=== PATIENT | female | born 1965 | race Caucasian/White ===

== ENCOUNTER → 2021-12-24 10:05 | Outpatient (BNVA) | payer MEDICAID, SELFPAY | PROVIDERS: Visit Provider Podiatrist Foot & Ankle Surgery | DX: M72.2 Plantar fascial fibromatosis (principal); M76.62 Achilles tendinitis, left leg; M24.572 Contracture, left ankle | CPT/HCPCS: 20600; 73630; 99203; J1100; J3301 ==

== ENCOUNTER → 2021-12-30 08:01 | Outpatient (BNVA) | payer MEDICAID, SELFPAY | PROVIDERS: Visit Provider Podiatrist Foot & Ankle Surgery | DX: M72.2 Plantar fascial fibromatosis (principal); M76.62 Achilles tendinitis, left leg; M24.572 Contracture, left ankle | CPT/HCPCS: 99214 ==

== ENCOUNTER → 2022-01-13 09:36 | Outpatient (BNVA) | payer MEDICAID, SELFPAY | PROVIDERS: Visit Provider Podiatrist Foot & Ankle Surgery | DX: M72.2 Plantar fascial fibromatosis (principal) | CPT/HCPCS: 20550; J1100; J3301 ==

== ENCOUNTER → 2022-02-19 15:21 | Outpatient (BNVA) | payer MEDICAID, SELFPAY | PROVIDERS: Visit Provider Podiatrist Foot & Ankle Surgery | DX: M72.2 Plantar fascial fibromatosis (principal); M24.572 Contracture, left ankle | CPT/HCPCS: 99214 ==

== ENCOUNTER 2022-02-20 11:57 | Outpatient (CLI) | payer MEDICAID, SELFPAY | END 2022-02-20 11:58 | disposition home or self-care (01) | LOC: SPT 03-11 11:58 | PROVIDERS: Visit Provider Podiatrist Foot & Ankle Surgery | DX: Z46.89 Encounter for fitting and adjustment of other specified devices (principal); M79.671 Pain in right foot | CPT/HCPCS: 20550; 97760; 99213; L4397 ==

== ENCOUNTER → 2022-03-05 09:36 | Outpatient (BNVA) | payer MEDICAID, SELFPAY | PROVIDERS: Visit Provider Podiatrist Foot & Ankle Surgery | DX: M72.2 Plantar fascial fibromatosis (principal); M24.572 Contracture, left ankle | CPT/HCPCS: 73630 ==

== ENCOUNTER 2022-03-05 10:33 | Outpatient (CLI) | payer MEDICAID, SELFPAY | END 2022-03-05 10:34 | disposition home or self-care (01) | LOC: SPT 10:33 | PROVIDERS: Visit Provider Podiatrist Foot & Ankle Surgery | DX: Z46.89 Encounter for fitting and adjustment of other specified devices (principal); M79.671 Pain in right foot | CPT/HCPCS: 97760; 99213; L4361 ==

== ENCOUNTER → 2022-03-11 12:48 | Outpatient (BNVA) | payer MEDICAID, SELFPAY | PROVIDERS: Visit Provider Podiatrist Foot & Ankle Surgery | DX: M72.2 Plantar fascial fibromatosis (principal); M24.572 Contracture, left ankle | CPT/HCPCS: 99213 ==

== ENCOUNTER → 2022-03-25 08:26 | Outpatient (BNVA) | payer MEDICAID, SELFPAY | PROVIDERS: Visit Provider Podiatrist Foot & Ankle Surgery | DX: M72.2 Plantar fascial fibromatosis (principal); M24.571 Contracture, right ankle | CPT/HCPCS: 20550 ==

== ENCOUNTER → 2022-04-02 08:34 | Outpatient (BNVA) | payer MEDICAID, SELFPAY | PROVIDERS: Visit Provider Podiatrist Foot & Ankle Surgery | DX: M72.2 Plantar fascial fibromatosis (principal); M24.571 Contracture, right ankle; M84.374A Stress fracture, right foot, initial encounter for fracture | CPT/HCPCS: 99214 ==

== ENCOUNTER → 2022-04-08 10:52 | Outpatient (BNVA) | payer MEDICAID, SELFPAY | PROVIDERS: Visit Provider Podiatrist Foot & Ankle Surgery | DX: M72.2 Plantar fascial fibromatosis (principal); M24.571 Contracture, right ankle | CPT/HCPCS: 99213 ==

== ENCOUNTER → 2022-04-15 10:54 | Outpatient (BNVA) | payer MEDICAID, SELFPAY | PROVIDERS: Visit Provider Podiatrist Foot & Ankle Surgery | DX: M72.2 Plantar fascial fibromatosis (principal); M24.571 Contracture, right ankle | CPT/HCPCS: 99213 ==

== ENCOUNTER → 2022-04-21 09:25 | Outpatient (BNVA) | payer MEDICAID, SELFPAY | PROVIDERS: Visit Provider Podiatrist Foot & Ankle Surgery | DX: M72.2 Plantar fascial fibromatosis (principal); M24.571 Contracture, right ankle | CPT/HCPCS: 99213 ==

== ENCOUNTER → 2022-04-28 10:47 | Outpatient (BNVA) | payer MEDICAID, SELFPAY | PROVIDERS: Visit Provider Podiatrist Foot & Ankle Surgery | DX: M72.2 Plantar fascial fibromatosis (principal); M24.571 Contracture, right ankle | CPT/HCPCS: 99213 ==

== ENCOUNTER 2022-05-06 08:12 | Emergency (ER) | payer MEDICAID, SELFPAY ==
[2022-05-06] VITALS (28 sets, daily range): BP systolic 154–188; BP diastolic 83–105; PULSE 58–77; RESP 12–33; TEMP 36.8; O2SAT 90–96; BMI 31.2
--- NOTE | 2022-05-06 08:31 | ECG_ITS ---
[facility] Test Date: 2022-05-06 Pat Name: Le Barnhart Department: Room: Gender: Female Companion Caregiver: ALFREDO: 1965 Requested By: Adeline Flores Order Number: [id number] MD: David Escalante M.D. Measurements Intervals Coffey Rate: 68 P: -22 DE: 152 QRS: 62 QRSD: 81 T: -5 QT: 386 QTc: 412 Interpretive Statements SINUS RHYTHM NONSPECIFIC T-WAVE ABNORMALITY No previous ECG available for comparison Electronically Signed On 05-06-2022 11:44:33 COMPUTER COMPOSITOR by David Escalante M.D. [email or web address]
--- NOTE | 2022-05-06 08:33 | XRR_ITS ---
PROCEDURE INFORMATION: Exam: XR Chest Exam date and time: 05/06/2022 9:53 AM Age: 56 years old Clinical indication: Shortness of breath TECHNIQUE: Imaging protocol: Radiologic exam of the chest. Views: 2 views. COMPARISON: No relevant prior studies available. FINDINGS: Lungs: There is mild reticular fine reticular and ground-glass opacity in the lower lungs. Pleural spaces: There is no pleural effusion or pneumothorax. Heart/Mediastinum: Cardiomediastinal contours are unremarkable. Bones/joints: Bones are unremarkable. XR/XR chest 2V* [id number] IMPRESSION: Mild reticular and ground-glass opacity in the lower lungs. Possible interstitial edema or atypical infection.
--- NOTE | 2022-05-06 08:59 | W.ED.SOB ---
Documented by User: NICOLETTE Beard 05/06/22 12:40 HPI - SOB/Dyspnea General: Chief Complaint: Shortness of Breath/Dyspnea Stated Complaint: SOB Time Seen by Provider: 05/06/22 08:33 History of Present Illness: HPI Narrative: Patient is in today stating that she is short of breath. She reports that she woke up this morning wheezing and use her albuterol inhaler. She reports that she just could not get her breath. She reports that for the past month she has been having increasing distention of her abdomen and noticeable weight gain. She reports she was hospitalized at [place] 2 months ago for her vaginal cancer and that they had to put her on nighttime O2 at that time. She reports that she is completely done with chemotherapy and radiation for the vaginal cancer. She reports that she has a history of COPD and congestive heart failure both. She denies any fever, chills, nausea, vomiting. She denies chest pain. She denies abdominal pain. Associated symptoms: Deny abdominal pain, chest pain, fever(s), lightheadedness, nausea, palpitations, syncope or vomiting Review of Systems Const: Denies: fever(s), chills or body aches Eyes: Denies: change in vision or blurry vision ENMT: Reports: nasal congestion; Denies: throat pain Card: Reports: swelling of feet/ankles; Denies: chest pain, palpitations, irregular heart rhythm, lightheadedness or syncope Resp: Reports: dyspnea, non-productive cough and wheezing; Denies: productive cough GI: Reports: bloating; Denies: abdominal pain, nausea or vomiting : Denies: flank pain, difficulty voiding, dysuria, urinary frequency, urinary urgency or urinary hesitancy Musc: Denies: neck pain or back pain Neuro: Denies: headache(s), numbness in extremities or weakness in extremities PFSH ED PFSH: Family History Denies family history of Colon cancer Ovarian cancer Diabetes Heart disease Hypercholesteremia Breast cancer Hypertension Uterine cancer Thyroid disease Stroke Physical Exam Const: COMMON NORMALS: no acute distress, patient oriented x3 and alert GENERAL APPEARANCE: cooperative ORIENTATION/CONSCIOUSNESS: Yes awake, Yes oriented to person, Yes oriented to place and Yes oriented to time HENMT: THROAT: posterior oropharynx normal Eye: COMMON NORMALS: Equal, round and reactive pupils present, EOMs intact bilaterally and conjunctivae normal GENERAL EYE: appearance normal, both eyes and all related structures ALIGNMENT: Yes alignment normal CONJUNCTIVA: Yes conjunctivae normal SCLERA: sclerae normal PUPIL: Yes Equal, round and reactive pupils present Neck/C-Spine: COMMON NORMALS: full ROM Resp: EFFORT & INSPECTION: Yes symmetric chest movement and Yes tachypneic Cardio: COMMON NORMALS: regular rate, regular rhythm, S1 normal heart sound present and S2 normal heart sound present RATE: regular rate RHYTHM: regular rhythm HEART SOUNDS: S1 normal heart sound present and S2 normal heart sound present GI: COMMON NORMALS: Soft to palpation INSPECTION: Yes abdominal distension AUSCULTATION: Yes Hypoactive bowel sounds present PALPATION: Yes Soft to palpation and No Tenderness to palpation present (GI) : COMMON NORMALS: Yes no CVA tenderness BLADDER/KIDNEY EXAM: Yes no CVA tenderness Back/Pelvis: COMMON NORMALS: no CVA tenderness Neuro: COMMON NORMALS: patient oriented x3 SENSORIUM/ORIENTATION: Yes alert, Yes oriented to person, Yes oriented to place and Yes oriented to time Psych: COMMON NORMALS: cooperative Course ED course: Patient's labs are reviewed. Troponin is 13 no prior comparison. BNP is over 1600 with no prior comparison. Blood pressure is elevated. Patient is still tachypneic 22-24 respirations per minute. SPO2 is 91 to 93% on room air. 10:24 AM?I consulted with Dr. Still who reviewed labs and chest x-ray and EKG. He agrees with plan to start Lasix. He recommends 40 mg IV push x1 dose now. Await 2-hour troponin 1227?delta troponin 1.7. Patient denies having current or previous chest pain. Patient states that she is feeling much better she is not nearly as short of breath she is able to walk to the bathroom without becoming winded. She is requesting discharge to home at this time. I spoke with Dr. Still regarding this patient's case and her request for discharge home. He agrees with sending her home on Lasix 40 mg p.o. daily x3 days and potassium 20 mEq replacement twice daily x3 days follow-up with her primary care provider on Thursday. I discussed this plan with the patient and she is agreeable. We discussed red flags for worsening and advised her to return to ER as needed for any new or worsening symptoms. Vital Signs: Vital signs: Vital Signs Temperature 98.2 F 05/06/22 08:25 Pulse Rate 72 05/06/22 12:46 Respiratory Rate 18 05/06/22 12:46 Blood Pressure 165/105 05/06/22 12:46 Pulse Oximetry 95 05/06/22 12:46 Oxygen Delivery Me thod 05/06/22 10:11 MDM - SOB/Dyspnea Medical Decision Making 56-year-old female reports to the ER for increasing shortness of breath. She reports that this became significantly worse when she woke up this morning but over the past month has been slowly building. She reports that she has noticed weight gain and abdominal distention. She denies any abdominal pain. White blood cell count was normal, chemistry showed troponin of 13 baseline 2-hour troponin was 14.72 with a delta of 1.7. BNP was over 1600. Urinalysis showed leukoesterase with hematuria we will go ahead and treat patient to cover for urinary tract infection. Discussed case, at length, with Dr. Still. Start patient on Lasix 40 mg p.o. daily starting tomorrow x3 days. Take potassium 20 mEq twice daily x3 days. Follow-up with primary care provider on Thursday. Return to the ER for any new or worsening symptoms. Lab Data 05/06/22 09:13 05/06/22 09:13 Labs/Radiology: Radiology Impressions Chest X-Ray 05/06/22 08:33 IMPRESSION: Mild reticular and ground-glass opacity in the lower lungs. Possible interstitial edema or atypical infection. Laboratory Results WBC 6.1 10^3/uL (4.0-10.0) 05/06/22 09:13 RBC 4.10 10^6/uL (4.1-5.3) 05/06/22 09:13 Hgb 14.9 g/dL (11.5-15.3) 05/06/22 09:13 Hct 43.4 % (37.0-47.0) 05/06/22 09:13 MCV 105.9 fl (81-99) H 05/06/22 09:13 MCH 36.3 pg (28.0-34.0) H 05/06/22 09:13 MCHC 34.3 g/dL (30.0-36.0) 05/06/22 09:13 RDW 14.6 % (12.1-15.1) 05/06/22 09:13 Plt Count 148 10^3/cmm (130-400) 05/06/22 09:13 MPV 9.8 fL (7.4-10.4) 05/06/22 09:13 Neut % (Auto) 72.2 % 05/06/22 09:13 Lymph % (Auto) 16.2 % 05/06/22 09:13 [place] % (Auto) 9.2 % 05/06/22 09:13 Eos % (Auto) 1.0 % 05/06/22 09:13 Baso % (Auto) 0.7 % 05/06/22 09:13 Neut # (Auto) 4.42 10^3/uL (1.8-7.7) 05/06/22 09:13 Lymph # (Auto) 1.0 10^3/uL (0.8-4.8) 05/06/22 09:13 [place] # (Auto) 0.6 10^3/uL (0.2-0.9) 05/06/22 09:13 Eos # (Auto) 0.1 10^3/uL (0.0-0.8) 05/06/22 09:13 Baso # (Auto) 0.0 10^3/uL (0.0-0.1) 05/06/22 09:13 Nucleated RBC % (auto) 0 % 05/06/22 09:13 Nucleated RBCs # 0.0 /100WBC 05/06/22 09:13 Sodium 141 mmol/L (136-145) 05/06/22 09:13 Potassium 3.8 mmol/L (3.5-5.1) 05/06/22 09:13 Chloride 105 mmol/L (98-107) 05/06/22 09:13 Carbon Dioxide 25 mmol/L (22-29) 05/06/22 09:13 Anion Gap 14.8 (5-19) 05/06/22 09:13 BUN 14 mg/dL (6-20) 05/06/22 09:13 Creatinine 0.6 mg/dL (0.5-0.9) 05/06/22 09:13 GFR Calculation 103.4 mL/min (90-130) 05/06/22 09:13 Glucose 105 mg/dL (65-115) 05/06/22 09:13 Calculated Osmolality 293 mOsm/kg (285-295) 05/06/22 09:13 Calcium 9.0 mg/dL (8.5-10.5) 05/06/22 09:13 Total Bilirubin 0.4 mg/dL (0.15-1.2) 05/06/22 09:13 AST 31 U/L (0-32) 05/06/22 09:13 ALT 66 U/L (0-33) H 05/06/22 09:13 Alkaline Phosphatase 100 U/L (35-105) 05/06/22 09:13 Troponin T Baseline 13 ng/L (0-10) H 05/06/22 09:13 Troponin T 120 Minute 14.72 ng/L (0-10) H 05/06/22 11:03 Delta Troponin T 1.72 ABS# (0-10) 05/06/22 11:03 NT-Pro-B Natriuret Pep 1673 pg/mL (0-125) H 05/06/22 09:13 Total Protein 6.7 g/dL (6.6-8.7) 05/06/22 09:13 Albumin 3.9 g/dL (3.5-5.2) 05/06/22 09:13 Globulin 2.8 g/dL (1.3-4.6) 05/06/22 09:13 Lipase 14 U/L (13-60) 05/06/22 09:13 Urine Color Yellow (Yellow) 05/06/22 09:28 Urine Appearance Sl hazy (CLEAR) A 05/06/22 09:28 Urine pH 7 (5-7) 05/06/22 09:28 Ur Specific [place] 1.015 (1.005-1.030) 05/06/22 09:28 Urine Protein Trace (Negative) 05/06/22 09:28 Urine Glucose (UA) Norm (Normal) 05/06/22 09:28 Urine Ketones Negative (Negative) 05/06/22 09:28 Urine Blood 2+ (Negative) H 05/06/22 09:28 Urine Nitrate Negative (Negative) 05/06/22 09:28 Urine Bilirubin Neg (Negative) 05/06/22 09:28 Urine Urobilinogen Norm mg/dL (Negative) 05/06/22 09:28 Ur Leukocyte Esterase 2+ (Negative) H 05/06/22 09:28 Urine RBC 0-4 /hpf (0-2) H 05/06/22 09:28 Urine WBC 15-25 /hpf (0-5) H 05/06/22 09:28 Ur Squamous Epith Cells 0-4 /hpf (0-5) H 05/06/22 09:28 Amorphous Sediment 1+ /hpf 05/06/22 09:28 Urine Bacteria Trace /hpf (NONE) 05/06/22 09:28 Urine Mucus 1+ /hpf 05/06/22 09:28 Discharge Plan Discharge Patient Disposition: Home Clinical Impression: Congestive heart failure, Urinary tract infection Condition: Stable Prescriptions: New nitrofurantoin macrocrystal 100 mg capsule 100 mg PO BID 5 Days Qty: 10 0RF Rx Instructions: must administer with a meal/food Lasix 40 mg tablet 40 mg PO QAM 3 Days Qty: 3 0RF Rx Instructions: Start 05/07/2022 Klor-Con M20 20 mEq tablet,ER particles/crystals 20 meq PO BID Qty: 7 0RF Rx Instructions: Start tonight 05/06/22 No Action gabapentin 300 mg capsule 300 mg PO TID clopidogrel [Plavix] 75 mg tablet 75 mg PO DAILY carvedilol [Coreg] 3.125 mg tablet 3.125 mg PO BID Rx Instructions: must administer with a meal/food (DME) night splint See Rx Instructions .Route .MEDSUPPLY Qty: 1 0RF Rx Instructions: As directed (DME) CAM boot See Rx Instructions .Route .MEDSUPPLY Qty: 1 0RF Rx Instructions: As directed (DME) Crutches See Rx Instructions .Route .MEDSUPPLY Qty: 1 0RF Rx Instructions: As directed to H.O.M.E (DME) Crutches See Rx Instructions .Route .MEDSUPPLY Qty: 1 0RF Rx Instructions: As directed HOME ibuprofen 800 mg tablet 800 mg PO Q8H PRN (Reason: pain) Qty: 36 0RF hydrocodone-acetaminophen 7.5-325 mg tablet 1 tab PO Q4H PRN (Reason: Pain) Advair Diskus 500-50 mcg/dose blister with device 1 inh INHALATION BID lisinopril 40 mg tablet 40 mg PO BID fluoxetine 20 mg capsule 20 mg PO DAILY aripiprazole 15 mg tablet 15 mg PO BEDTIME bupropion HCl 450 mg tablet extended release 24 hr 450 mg PO DAILY Discharge Orders: Discharge ED (Routine); Ordered 05/06/22 Ordered By: Adeline Flores Discharge Diet: Low Salt Discharge Activity: Resume usual activity Patient Instructions: Congestive Heart Failure, Low-Sodium Diet (ED) Activity Restrictions/Additional Instructions: Take medications as directed. Start potassium tonight and your antibiotic tonight. Do not take Lasix until tomorrow because you have already had a dose in the ER today. Follow-up with your primary care provider on Thursday. Return to the ER as needed for any new or worsening symptoms including, but not limited to, increasing shortness of breath, increasing swelling, chest pain. Coding Level of Care Code ED Manager Professional Development for Chg Fwd Documented by User: Ernesto Still DO 05/06/22 13:00 HPI - SOB/Dyspnea General: Chief Complaint: Shortness of Breath/Dyspnea Stated Complaint: SOB Time Seen by Provider: 05/06/22 08:33 [facility] ED PFSH: Family History Denies family history of Colon cancer Ovarian cancer Diabetes Heart disease Hypercholesteremia Breast cancer Hypertension Uterine cancer Thyroid disease Stroke Course Vital Signs: Vital signs: Vital Signs Temperature 98.2 F 05/06/22 08:25 Pulse Rate 72 05/06/22 12:46 Respiratory Rate 18 05/06/22 12:46 Blood Pressure 165/105 05/06/22 12:46 Pulse Oximetry 95 05/06/22 12:46 Oxygen Delivery Me thod 05/06/22 10:11 MDM - SOB/Dyspnea Medical Decision Making 56-year-old female reports to the ER for increasing shortness of breath. She reports that this became significantly worse when she woke up this morning but over the past month has been slowly building. She reports that she has noticed weight gain and abdominal distention. She denies any abdominal pain. White blood cell count was normal, chemistry showed troponin of 13 baseline 2-hour troponin was 14.72 with a delta of 1.7. BNP was over 1600. Urinalysis showed leukoesterase with hematuria we will go ahead and treat patient to cover for urinary tract infection. Discussed case, at length, with Dr. Still. Start patient on Lasix 40 mg p.o. daily starting tomorrow x3 days. Take potassium 20 mEq twice daily x3 days. Follow-up with primary care provider on Thursday. Return to the ER for any new or worsening symptoms. Chart reviewed and patient discussed with midlevel. Agree with assessment and plan. Lab Data 05/06/22 09:13 05/06/22 09:13 Labs/Radiology: Radiology Impressions Chest X-Ray 05/06/22 08:33 IMPRESSION: Mild reticular and ground-glass opacity in the lower lungs. Possible interstitial edema or atypical infection. Laboratory Results WBC 6.1 10^3/uL (4.0-10.0) 05/06/22 09:13 RBC 4.10 10^6/uL (4.1-5.3) 05/06/22 09:13 Hgb 14.9 g/dL (11.5-15.3) 05/06/22 09:13 Hct 43.4 % (37.0-47.0) 05/06/22 09:13 MCV 105.9 fl (81-99) H 05/06/22 09:13 MCH 36.3 pg (28.0-34.0) H 05/06/22 09:13 MCHC 34.3 g/dL (30.0-36.0) 05/06/22 09:13 RDW 14.6 % (12.1-15.1) 05/06/22 09:13 Plt Count 148 10^3/cmm (130-400) 05/06/22 09:13 MPV 9.8 fL (7.4-10.4) 05/06/22 09:13 Neut % (Auto) 72.2 % 05/06/22 09:13 Lymph % (Auto) 16.2 % 05/06/22 09:13 [place] % (Auto) 9.2 % 05/06/22 09:13 Eos % (Auto) 1.0 % 05/06/22 09:13 Baso % (Auto) 0.7 % 05/06/22 09:13 Neut # (Auto) 4.42 10^3/uL (1.8-7.7) 05/06/22 09:13 Lymph # (Auto) 1.0 10^3/uL (0.8-4.8) 05/06/22 09:13 [place] # (Auto) 0.6 10^3/uL (0.2-0.9) 05/06/22 09:13 Eos # (Auto) 0.1 10^3/uL (0.0-0.8) 05/06/22 09:13 Baso # (Auto) 0.0 10^3/uL (0.0-0.1) 05/06/22 09:13 Nucleated RBC % (auto) 0 % 05/06/22 09:13 Nucleated RBCs # 0.0 /100WBC 05/06/22 09:13 Sodium 141 mmol/L (136-145) 05/06/22 09:13 Potassium 3.8 mmol/L (3.5-5.1) 05/06/22 09:13 Chloride 105 mmol/L (98-107) 05/06/22 09:13 Carbon Dioxide 25 mmol/L (22-29) 05/06/22 09:13 Anion Gap 14.8 (5-19) 05/06/22 09:13 BUN 14 mg/dL (6-20) 05/06/22 09:13 Creatinine 0.6 mg/dL (0.5-0.9) 05/06/22 09:13 GFR Calculation 103.4 mL/min (90-130) 05/06/22 09:13 Glucose 105 mg/dL (65-115) 05/06/22 09:13 Calculated Osmolality 293 mOsm/kg (285-295) 05/06/22 09:13 Calcium 9.0 mg/dL (8.5-10.5) 05/06/22 09:13 Total Bilirubin 0.4 mg/dL (0.15-1.2) 05/06/22 09:13 AST 31 U/L (0-32) 05/06/22 09:13 ALT 66 U/L (0-33) H 05/06/22 09:13 Alkaline Phosphatase 100 U/L (35-105) 05/06/22 09:13 Troponin T Baseline 13 ng/L (0-10) H 05/06/22 09:13 Troponin T 120 Minute 14.72 ng/L (0-10) H 05/06/22 11:03 Delta Troponin T 1.72 ABS# (0-10) 05/06/22 11:03 NT-Pro-B Natriuret Pep 1673 pg/mL (0-125) H 05/06/22 09:13 Total Protein 6.7 g/dL (6.6-8.7) 05/06/22 09:13 Albumin 3.9 g/dL (3.5-5.2) 05/06/22 09:13 Globulin 2.8 g/dL (1.3-4.6) 05/06/22 09:13 Lipase 14 U/L (13-60) 05/06/22 09:13 Urine Color Yellow (Yellow) 05/06/22 09:28 Urine Appearance Sl hazy (CLEAR) A 05/06/22 09:28 Urine pH 7 (5-7) 05/06/22 09:28 Ur Specific [place] 1.015 (1.005-1.030) 05/06/22 09:28 Urine Protein Trace (Negative) 05/06/22 09:28 Urine Glucose (UA) Norm (Normal) 05/06/22 09:28 Urine Ketones Negative (Negative) 05/06/22 09:28 Urine Blood 2+ (Negative) H 05/06/22 09:28 Urine Nitrate Negative (Negative) 05/06/22 09:28 Urine Bilirubin Neg (Negative) 05/06/22 09:28 Urine Urobilinogen Norm mg/dL (Negative) 05/06/22 09:28 Ur Leukocyte Esterase 2+ (Negative) H 05/06/22 09:28 Urine RBC 0-4 /hpf (0-2) H 05/06/22 09:28 Urine WBC 15-25 /hpf (0-5) H 05/06/22 09:28 Ur Squamous Epith Cells 0-4 /hpf (0-5) H 05/06/22 09:28 Amorphous Sediment 1+ /hpf 05/06/22 09:28 Urine Bacteria Trace /hpf (NONE) 05/06/22 09:28 Urine Mucus 1+ /hpf 05/06/22 09:28 Discharge Plan Discharge Patient Disposition: Home Clinical Impression: Congestive heart failure, Urinary tract infection Condition: Stable Prescriptions: New nitrofurantoin macrocrystal 100 mg capsule 100 mg PO BID 5 Days Qty: 10 0RF Rx Instructions: must administer with a meal/food Lasix 40 mg tablet 40 mg PO QAM 3 Days Qty: 3 0RF Rx Instructions: Start 05/07/2022 Klor-Con M20 20 mEq tablet,ER particles/crystals 20 meq PO BID Qty: 7 0RF Rx Instructions: Start tonight 05/06/22 No Action gabapentin 300 mg capsule 300 mg PO TID clopidogrel [Plavix] 75 mg tablet 75 mg PO DAILY carvedilol [Coreg] 3.125 mg tablet 3.125 mg PO BID Rx Instructions: must administer with a meal/food (DME) night splint See Rx Instructions .Route .MEDSUPPLY Qty: 1 0RF Rx Instructions: As directed (DME) CAM boot See Rx Instructions .Route .MEDSUPPLY Qty: 1 0RF Rx Instructions: As directed (DME) Crutches See Rx Instructions .Route .MEDSUPPLY Qty: 1 0RF Rx Instructions: As directed to H.O.M.E (DME) Crutches See Rx Instructions .Route .MEDSUPPLY Qty: 1 0RF Rx Instructions: As directed HOME ibuprofen 800 mg tablet 800 mg PO Q8H PRN (Reason: pain) Qty: 36 0RF hydrocodone-acetaminophen 7.5-325 mg tablet 1 tab PO Q4H PRN (Reason: Pain) Advair Diskus 500-50 mcg/dose blister with device 1 inh INHALATION BID lisinopril 40 mg tablet 40 mg PO BID fluoxetine 20 mg capsule 20 mg PO DAILY aripiprazole 15 mg tablet 15 mg PO BEDTIME bupropion HCl 450 mg tablet extended release 24 hr 450 mg PO DAILY Discharge Orders: Discharge ED (Routine); Ordered 05/06/22 Ordered By: Adeline Flores Discharge Diet: Low Salt Discharge Activity: Resume usual activity Patient Instructions: Congestive Heart Failure, Low-Sodium Diet (ED) Activity Restrictions/Additional Instructions: Take medications as directed. Start potassium tonight and your antibiotic tonight. Do not take Lasix until tomorrow because you have already had a dose in the ER today. Follow-up with your primary care provider on Thursday. Return to the ER as needed for any new or worsening symptoms including, but not limited to, increasing shortness of breath, increasing swelling, chest pain. Coding Level of Care Code ED Manager Professional Development for Ann Machuca
[2022-05-06 09:23] LABS: Basophils % 0.7 %; Eosinophils # 0.1 10^3/uL (0.0-0.8); Hematocrit 43.4 % (37.0-47.0); Hemoglobin 14.9 g/dL (11.5-15.3); Lymphocytes % 16.2 %; Mean Corpuscular HGB Conc 34.3 g/dL (30.0-36.0); Mean Corpuscular Hemoglobin 36.3 pg (28.0-34.0); Mean Corpuscular Volume 105.9 fl (81-99); Mean Platelet Volume 9.8 fL (7.4-10.4); Monocytes # 0.6 10^3/uL (0.2-0.9); Monocytes % 9.2 %; Neutrophils # 4.42 10^3/uL (1.8-7.7); Neutrophils % 72.2 %; Nucleated Red Blood Cells % 0 %; Platelet Count 148 10^3/cmm (130-400); Red Cell Distribution Width 14.6 % (12.1-15.1); White Blood Count 6.1 10^3/uL (4.0-10.0)
[2022-05-06 09:47] LABS: Troponin(5th) Baseline 13 ng/L (0-10)
[2022-05-06 09:54] LABS: Alanine Aminotransferase 66 U/L (0-33); Albumin Level 3.9 g/dL (3.5-5.2); Alkaline Phosphatase 100 U/L (35-105); Anion Gap 14.8 (5-19); Aspartate Amino Transferase 31 U/L (0-32); Blood Urea Nitrogen 14 mg/dL (6-20); Carbon Dioxide 25 mmol/L (22-29); Chloride 105 mmol/L (98-107); Globulin 2.8 g/dL (1.3-4.6); Glomerular Filtration Rate 103.4 mL/min (90-130); Glucose 105 mg/dL (65-115); Lipase 14 U/L (13-60); NT Pro B Type Natriuretic Pept 1673 pg/mL (0-125); Osmolality Calculated 293 mOsm/kg (285-295); Potassium 3.8 mmol/L (3.5-5.1); Sodium 141 mmol/L (136-145); Total Bilirubin 0.4 mg/dL (0.15-1.2); Total Protein 6.7 g/dL (6.6-8.7)
[2022-05-06] MEDS: albuterol 2.5 mg/3 mL Neb INHALATION (10:11)
[2022-05-06 10:23] LABS: Add Urine Microscopic? YES; Bilirubin Urine Neg (Negative); Blood Urine 2+ (Negative); Glucose Urine UA Norm (Normal); Ketones Urine Negative (Negative); Leukocyte Esterase Urine 2+ (Negative); Nitrate Urine Negative (Negative); Protein Urine Trace (Negative); Specific Gravity, Urine 1.015 (1.005-1.030); Urine Appearance SL Hazy (CLEAR); Urine Color Yellow (Yellow); Urobilinogen Urine Norm (Negative); pH Urine 7 (5-7)
[2022-05-06 10:24] LABS: RBC Urine 0-4 /hpf (0-2); Squamous Epithelial Cell Urine 0-4 /hpf (0-5); WBC Urine 15-25 /hpf (0-5)
[2022-05-06] MEDS: FUROsemide 10 mg/mL SDV 4mL 40 MG IVP (10:24)
[2022-05-06 10:25] LABS: Add Urine Culture? Yes; Amorphous Sediment Urine 1+ /hpf; Bacteria Urine TRACE /hpf; Mucus Urine 1+ /hpf
--- NOTE | 2022-05-06 10:35 | ECG_ITS ---
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 Measurements Intervals [place] Rate: 66 P: -18 HI: 152 QRS: 70 QRSD: 79 T: 16 QT: 386 QTc: 407 Interpretive Statements SINUS RHYTHM NONSPECIFIC T-WAVE ABNORMALITY Compared to ECG 05/06/2022 08:34:55 No significant changes Electronically Signed On 05-06-2022 11:45:31 CURB BUILDER by David Escalante M.D. [email or web address] Servicesinging river gulfportSavareeregency hospital clevel[facility] westSpin Ink LTD/store/[id number]
[2022-05-06 11:33] LABS: Troponin 5 2HR 14.72 ng/L (0-10); Troponin 5 2HR Delta 1.72 ABS# (0-10)
== END 2022-05-06 12:48 | disposition home or self-care (01) ==
PROVIDERS: Emergency Provider Nurse Practitioner Family
DX: I11.0 Hypertensive heart disease with heart failure (principal); I50.9 Heart failure, unspecified; N39.0 Urinary tract infection, site not specified; Z79.02 Long term (current) use of antithrombotics/antiplatelets
CPT/HCPCS: 71046; 80053; 81001; 83690; 83880; 84484; 85025; 87077; 87086; 87186; 93005; 94640; 96374; 99285; J1940; J7613

== ENCOUNTER → 2022-05-23 08:27 | Outpatient (BNVA) | payer MEDICAID, SELFPAY | PROVIDERS: Visit Provider Podiatrist Foot & Ankle Surgery | DX: M72.2 Plantar fascial fibromatosis (principal); M24.571 Contracture, right ankle; S93.601A Unspecified sprain of right foot, initial encounter; X58.XXXA Exposure to other specified factors, initial encounter | CPT/HCPCS: 99213 ==

== ENCOUNTER → 2022-06-06 08:15 | Outpatient (BNVA) | payer MEDICAID, SELFPAY | PROVIDERS: Visit Provider Podiatrist Foot & Ankle Surgery | DX: M72.2 Plantar fascial fibromatosis (principal); S93.601A Unspecified sprain of right foot, initial encounter; X58.XXXA Exposure to other specified factors, initial encounter | CPT/HCPCS: 99213 ==

== ENCOUNTER 2022-06-09 19:07 | Inpatient (IN) | payer MEDICAID, SELFPAY ==
[2022-06-09] VITALS (21 sets, daily range): BP systolic 128–179; BP diastolic 77–101; PULSE 85–104; RESP 19–31; TEMP 36.6; O2SAT 89–97; BMI 32.9
--- NOTE | 2022-06-09 19:09 | XRR_ITS ---
PROCEDURE INFORMATION: Exam: XR Chest Exam date and time: 06/09/2022 7:16 PM Age: 56 years old Clinical indication: Pain; Chest pressure; Additional info: Cp TECHNIQUE: Imaging protocol: Radiologic exam of the chest. Views: 1 view. COMPARISON: CR XR chest 2V* [id number] 05/06/2022 9:53 AM FINDINGS: Lungs: Unremarkable. No consolidation. Pleural spaces: Unremarkable. No pleural effusion. No pneumothorax. Heart/Mediastinum: Unremarkable. No cardiomegaly. Bones/joints: Stable postoperative metallic fixation of the cervical spine with or without metallic artifact. XR/XR chest 1V portable [id number] IMPRESSION: No acute findings.
--- NOTE | 2022-06-09 19:29 | ECG_ITS ---
[facility] Test Date: 2022-06-09 Pat Name: Le Barnhart Department: Room: ICU01 Gender: Female Rn Complex Care: : 1965 Requested By: Jonathan Rice Order Number: [id number] Jessica MD: Ivis Drake M.D. Measurements Intervals [place] Rate: 103 P: 24 ND: 160 QRS: 61 QRSD: 88 T: -47 QT: 326 QTc: 428 Interpretive Statements SINUS TACHYCARDIA WITH FREQUENT SUPRAVENTRICULAR PREMATURE COMPLEXES ST DEVIATION AND MODERATE T-WAVE ABNORMALITY, CONSIDER LATERAL ISCHEMIA [-0.1+ mV T-WAVE IN I/aVL/V5/V6] ST DEVIATION AND MODERATE T-WAVE ABNORMALITY, CONSIDER INFERIOR ISCHEMIA [-0.1+ mV T-WAVE IN II/aVF] INTERPRETATION BASED ON A DEFAULT AGE OF 40 YEARS Compared to ECG 05/06/2022 10:35:22 Possible ischemia now present Sinus rhythm no longer present T-wave abnormality still present Electronically Signed On 06-10-2022 23:06:54 CDT by Ivis Drake M.D. [id number]
--- NOTE | 2022-06-09 19:48 | W.ED.CHESTPA ---
HPI - Chest Pain General: Chief Complaint: Chest Pain Stated Complaint: Chest Pains Time Seen by Provider: 06/09/22 19:34 Source: patient Mode of arrival: ambulatory Limitations: no limitations History of Present Illness: 56-year-old female has a history of coronary disease she does have a history of high blood pressure as well. States that today her blood pressure spiking to the 200s and started having chest pain with her hypertension. States it was a pressure pain in her chest rating to her left arm she denies any diaphoresis she did take nitro and aspirin at home with no relief her pain is currently a 5 out of 10. No vomiting no shortness of breath. Associated symptoms: Deny abdominal pain, dyspnea, fever(s), nausea or vomiting Review of Systems Const: Denies: fever(s), chills, body aches or change in appetite Eyes: Denies: blurry vision or eye discomfort ENMT: Denies: throat pain or dental pain Card: Reports: chest pain Resp: Denies: dyspnea GI: Denies: abdominal pain, nausea, vomiting or diarrhea : Denies: dysuria Musc: Denies: neck pain or back pain Skin/Breast: Denies: rash Neuro: Denies: headache(s) Psych: Denies: depression Alfonso/Lymph: Denies: easy bruising All/Imm: Denies: urticaria PFSH ED PFSH: Medical History (Updated 06/09/22 @ 22:15 by Jonathan Rice MD) Hypertension Family History Denies family history of Colon cancer Ovarian cancer Diabetes Heart disease Hypercholesteremia Breast cancer Hypertension Uterine cancer Thyroid disease Stroke Physical Exam Const: COMMON NORMALS: no acute distress, patient oriented x3 and healthy appearing HENMT: COMMON NORMALS: normocephalic and atraumatic HEAD & SCALP: normocephalic and atraumatic Eye: COMMON NORMALS: Equal, round and reactive pupils present and EOMs intact bilaterally PUPIL: Yes Equal, round and reactive pupils present Neck/C-Spine: COMMON NORMALS: full ROM and supple Chest: COMMONS NORMALS: normal inspection of the chest and normal palpation of entire chest wall Resp: COMMON NORMALS: normal respiratory effort, No retractions, No use of accessory muscles and clear to auscultation bilaterally AUSCULTATION: clear to auscultation bilaterally Cardio: COMMON NORMALS: regular rate, regular rhythm and No murmurs present (Cardio) RATE: regular rate RHYTHM: regular rhythm GI: COMMON NORMALS: Normal to inspection, nondistended, normoactive bowel sounds present, Soft to palpation, non-tender and no masses PALPATION: Yes Soft to palpation Extremity: COMMON NORMALS: normal to inspection and full ROM Neuro: COMMON NORMALS: patient oriented x3, moves all extremities and no focal motor deficits Psych: COMMON NORMALS: mental status grossly normal, Normal thought process present and cooperative THOUGHT PROCESS: Normal thought process present Skin: COMMON NORMALS: no rashes or lesions noted and no wounds GENERAL SKIN EXAM: no rashes or lesions noted Course Vital Signs: Vital signs: Vital Signs Pulse Rate 94 06/09/22 22:00 Respiratory Rate 21 H 06/09/22 22:00 Blood Pressure 144/87 06/09/22 22:00 Pulse Oximetry 94 06/09/22 22:00 Oxygen Delivery Me thod 06/09/22 19:25 MDM - Chest Pain Medical Decision Making Patient presents here with chest pain since resolved here her second EKG does have worsening ST depression from her previous EKGs her troponins here are normal with her EKG changes and risk factors will admit at this time for ACS rule out. Lab Data 06/09/22 19:45 06/09/22 19:45 Radiology Impressions Chest X-Ray 06/09/22 19:09 IMPRESSION: No acute findings. Laboratory Results WBC 7.3 10^3/uL (4.0-10.0) 06/09/22 19:45 RBC 4.42 10^6/uL (4.1-5.3) 06/09/22 19:45 Hgb 15.0 g/dL (11.5-15.3) 06/09/22 19:45 Hct 44.8 % (37.0-47.0) 06/09/22 19:45 MCV 101.4 fl (81-99) H 06/09/22 19:45 MCH 33.9 pg (28.0-34.0) 06/09/22 19:45 MCHC 33.5 g/dL (30.0-36.0) 06/09/22 19:45 RDW 13.3 % (12.1-15.1) 06/09/22 19:45 Plt Count 157 10^3/cmm (130-400) 06/09/22 19:45 MPV 9.1 fL (7.4-10.4) 06/09/22 19:45 Neut % (Auto) 69.8 % 06/09/22 19:45 Lymph % (Auto) 21.4 % 06/09/22 19:45 [place] % (Auto) 6.2 % 06/09/22 19:45 Eos % (Auto) 1.2 % 06/09/22 19:45 Baso % (Auto) 0.6 % 06/09/22 19:45 Neut # (Auto) 5.06 10^3/uL (1.8-7.7) 06/09/22 19:45 Lymph # (Auto) 1.6 10^3/uL (0.8-4.8) 06/09/22 19:45 [place] # (Auto) 0.5 10^3/uL (0.2-0.9) 06/09/22 19:45 Eos # (Auto) 0.1 10^3/uL (0.0-0.8) 06/09/22 19:45 Baso # (Auto) 0.0 10^3/uL (0.0-0.1) 06/09/22 19:45 Nucleated RBC % (auto) 0 % 06/09/22 19:45 Nucleated RBCs # 0.0 /100WBC 06/09/22 19:45 Sodium 138 mmol/L (136-145) 06/09/22 19:45 Potassium 3.4 mmol/L (3.5-5.1) L 06/09/22 19:45 Chloride 101 mmol/L (98-107) 06/09/22 19:45 Carbon Dioxide 24 mmol/L (22-29) 06/09/22 19:45 Anion Gap 16.4 (5-19) 06/09/22 19:45 BUN 23 mg/dL (6-20) H 06/09/22 19:45 Creatinine 1.0 mg/dL (0.5-0.9) H 06/09/22 19:45 GFR Calculation 57.4 mL/min (90-130) L 06/09/22 19:45 Glucose 160 mg/dL (65-115) H 06/09/22 19:45 Calculated Osmolality 293 mOsm/kg (285-295) 06/09/22 19:45 Calcium 8.9 mg/dL (8.5-10.5) 06/09/22 19:45 Total Bilirubin 0.2 mg/dL (0.15-1.2) 06/09/22 19:45 AST 19 U/L (0-32) 06/09/22 19:45 ALT 27 U/L (0-33) 06/09/22 19:45 Alkaline Phosphatase 106 U/L (35-105) H 06/09/22 19:45 Troponin T Baseline 16 ng/L (0-10) H 06/09/22 19:45 Troponin T 120 Minute 16.57 ng/L (0-10) H 06/09/22 21:35 Delta Troponin T 0.57 ABS# (0-10) 06/09/22 21:35 Total Protein 6.9 g/dL (6.6-8.7) 06/09/22 19:45 Albumin 3.9 g/dL (3.5-5.2) 06/09/22 19:45 Globulin 3.0 g/dL (1.3-4.6) 06/09/22 19:45 EKG Data EKG 1: I personally reviewed and interpreted this EKG as follows: EKG interpretation date: 06/09/22 EKG interpretation time: 19:29 Interpretation: sinus tach hr [address] elevation qrs 88 qtc 386 Discharge Plan Discharge Patient Disposition: Admitted As Inpatient Clinical Impression: Chest pain Condition: Stable Prescriptions: No Action gabapentin 300 mg capsule 300 mg PO TID clopidogrel [Plavix] 75 mg tablet 75 mg PO DAILY carvedilol [Coreg] 3.125 mg tablet 3.125 mg PO BID Rx Instructions: must administer with a meal/food lisinopril 20 mg tablet 20 mg PO BID clopidogrel [Plavix] 75 mg tablet 75 mg PO DAILY carvedilol 25 mg tablet 25 mg PO BID Rx Instructions: must administer with a meal/food baclofen 20 mg tablet 20 mg PO BID (DME) night splint See Rx Instructions .Route .MEDSUPPLY Qty: 1 0RF Rx Instructions: As directed (DME) CAM boot See Rx Instructions .Route .MEDSUPPLY Qty: 1 0RF Rx Instructions: As directed (DME) Crutches See Rx Instructions .Route .MEDSUPPLY Qty: 1 0RF Rx Instructions: As directed to [facility].O.M.E (DME) Crutches See Rx Instructions .Route .MEDSUPPLY Qty: 1 0RF Rx Instructions: As directed HOME ibuprofen 800 mg tablet 800 mg PO Q8H PRN (Reason: pain) Qty: 36 0RF ibuprofen 800 mg tablet 800 mg PO Q8H 5 Days Qty: 15 0RF hydrocodone-acetaminophen 7.5-325 mg tablet 1 tab PO Q4H PRN (Reason: Pain) Advair Diskus 500-50 mcg/dose blister with device 1 inh INHALATION BID lisinopril 40 mg tablet 40 mg PO BID fluoxetine 20 mg capsule 20 mg PO DAILY aripiprazole 15 mg tablet 15 mg PO BEDTIME bupropion HCl 450 mg tablet extended release 24 hr 450 mg PO DAILY Klor-Con M20 20 mEq tablet,ER particles/crystals 20 meq PO BID Qty: 7 0RF Rx Instructions: Start tonight 05/06/22 Referrals: Ryann Burk [Primary Care Provider] - Coding Level of Care Code ED Loan Assistant for Ann Machuca
[2022-06-09] MEDS: ondansetron 2 mg/ML SDV 2 mL 4 MG IVP (19:54)
[2022-06-09] MEDS: morphine 4 mg/mL SDV 1 mL IVP ×3 (19:54→23:51)
[2022-06-09 19:56] LABS: Basophils % 0.6 %; Eosinophils # 0.1 10^3/uL (0.0-0.8); Eosinophils % 1.2 %; Hematocrit 44.8 % (37.0-47.0); Lymphocytes # 1.6 10^3/uL (0.8-4.8); Lymphocytes % 21.4 %; Mean Corpuscular HGB Conc 33.5 g/dL (30.0-36.0); Mean Corpuscular Hemoglobin 33.9 pg (28.0-34.0); Mean Corpuscular Volume 101.4 fl (81-99); Mean Platelet Volume 9.1 fL (7.4-10.4); Monocytes # 0.5 10^3/uL (0.2-0.9); Monocytes % 6.2 %; Neutrophils # 5.06 10^3/uL (1.8-7.7); Neutrophils % 69.8 %; Nucleated Red Blood Cells % 0 %; Platelet Count 157 10^3/cmm (130-400); Red Blood Count 4.42 10^6/uL (4.1-5.3); Red Cell Distribution Width 13.3 % (12.1-15.1); White Blood Count 7.3 10^3/uL (4.0-10.0)
[2022-06-09 20:21] LABS: Troponin(5th) Baseline 16 ng/L (0-10)
[2022-06-09 20:26] LABS: Alanine Aminotransferase 27 U/L (0-33); Albumin Level 3.9 g/dL (3.5-5.2); Alkaline Phosphatase 106 U/L (35-105); Blood Urea Nitrogen 23 mg/dL (6-20); Calcium 8.9 mg/dL (8.5-10.5); Carbon Dioxide 24 mmol/L (22-29); Chloride 101 mmol/L (98-107); Glomerular Filtration Rate 57.4 mL/min (90-130); Glucose 160 mg/dL (65-115); Osmolality Calculated 293 mOsm/kg (285-295); Sodium 138 mmol/L (136-145); Total Bilirubin 0.2 mg/dL (0.15-1.2); Total Protein 6.9 g/dL (6.6-8.7)
[2022-06-09 20:29] LABS: Anion Gap 16.4 (5-19); Aspartate Amino Transferase 19 U/L (0-32); Potassium 3.4 mmol/L (3.5-5.1)
--- NOTE | 2022-06-09 21:29 | ECG_ITS ---
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 Measurements Intervals [place] Rate: 89 P: 44 NC: 170 QRS: 65 QRSD: 85 T: -3 QT: 353 QTc: 430 Interpretive Statements SINUS RHYTHM WITH OCCASIONAL SUPRAVENTRICULAR PREMATURE COMPLEXES LEFT VENTRICULAR HYPERTROPHY AND ST-T CHANGE [VOLTAGE CRITERIA PLUS ST/T ABNORMALITY] Compared to ECG 05/06/2022 10:35:22 Left ventricular hypertrophy now present ST (T wave) deviation now present T-wave abnormality no longer present Electronically Signed On 06-10-2022 23:14:31 CDT by Ivis Drake M.D. [email or web address].[email or web address]/store/[id number]
[2022-06-09 22:04] LABS: Troponin 5 2HR 16.57 ng/L (0-10)
[2022-06-09 22:05] LABS: Troponin 5 2HR Delta 0.57 ABS# (0-10)
--- NOTE | 2022-06-09 22:51 | CTR_ITS ---
PROCEDURE INFORMATION: Exam: CTA Chest With Contrast Exam date and time: 06/09/2022 11:06 PM Age: 56 years old Clinical indication: Radiating; Prior surgery; Surgery type: Coronary stents x 6; Patient HX: C/O chest pain with posterior radiation. History of chf. ; Additional info: Cp radiating to back, assess for any dissection TECHNIQUE: Imaging protocol: Computed tomographic angiography of the chest with contrast. 3D rendering (Not supervised by radiologist): MIP and/or 3D reconstructed images were created by the technologist. Radiation optimization: All CT scans at this facility use at least one of these dose optimization techniques: automated exposure control; mA and/or kV adjustment per patient size (includes targeted exams where dose is matched to clinical indication); or iterative reconstruction. Contrast material: OMNI 350; Contrast volume: 100 ml; Contrast route: INTRAVENOUS (IV); REPORTING DATA: Count of CT and Cardiac NM exams in prior 12 months: This patient has received 0 known CTs and 0 known cardiac nuclear medicine studies in the 12 months prior to the current study. COMPARISON: CR (CHEST, ) 06/09/2022 7:16 PM RADIATION DOSE METRICS: Total DLP (mGy-cm): 881.71 FINDINGS: Pulmonary arteries: No pulmonary embolus or aortic dissection. Aorta: See Pulmonary arteries finding. Lungs: Mild nonspecific ground-glass opacities in the dependent portions of the upper lobes and lower lobes suggesting possible hydrostatic edema. Pleural spaces: Unremarkable. No pneumothorax. No pleural effusion. Heart: Unremarkable. No cardiomegaly. No pericardial effusion. Coronary arteries: Severe calcified coronary artery disease. Lymph nodes: Unremarkable. No enlarged lymph nodes. Bones/joints: Unremarkable. No acute fracture. Soft tissues: Absent right breast consistent with previous right mastectomy. CT/CT angio chest [id number] IMPRESSION: 1. Severe calcified coronary artery disease. 2. Mild nonspecific ground-glass opacities in the dependent portions of the upper lobes and lower lobes suggesting possible hydrostatic edema. 3. No pulmonary embolus or aortic dissection.
[2022-06-09 22:52] LABS: D Dimer 0.44 ug/mIFEU (0-0.59)
--- NOTE | 2022-06-09 22:55 | P.HP_ITS ---
Providers/Chief Complaint Admitting Physician: Domenico Jung Primary Care Provider: Ryann Burk Chief Complaint: Chest Pains History of Present Illness 56-year-old lady with history of HTN, CAD, stenting x5, history of nocturnal hypoxia, normally on 2 L of oxygen at night, history of hemochromatosis and liver cirrhosis, will be establishing with hematology here in town, long-term NSAID use, smoking addiction, other medical problems came in for evaluation to ER due to blood pressure being elevated and having chest pain. Due to states I know that I have another blockage . She feels that it is driving up her blood pressure. Chest pain radiating to the back into the right arm. Partial relief, currently reports 09/29. Denies any worsening with deep breaths, has no cough, not short of breath, no change in pain with repositioning, no swallowing difficulties or pain, no heartburn. In ER on presentation hypertensive, systolic blood pressures in 200s. Received morphine, Zofran with partial improvement in blood pressure to 150s-160s. Initial and 2-hour troponin with minimal elevation of 16-16.57. Initial EKG with ST depression in 1, aVL, II, TWI in III, aVF. Review of Systems Const: Denies: fever(s), chills, body aches or malaise Eyes: Denies: change in vision, eye discomfort or eye redness ENMT: Denies: throat pain, oral sores or ear or mastoid pain Card: Reports: chest pain and swelling of feet/ankles; Denies: pre-syncope Resp: Reports: productive cough (Usual with her COPD. Uses an inhaler.); Denies: dyspnea, change in phlegm color or hemoptysis GI: Reports: other (Abdominal distention); Denies: abdominal pain, nausea, vomiting, diarrhea, constipation, hematochezia or melena : Denies: flank pain, urinary frequency or hematuria Musc: Denies: back pain, joint swelling or joint redness Skin/Breast: Denies: rash or new lesions Neuro: Denies: headache(s), numbness in extremities, weakness in extremities, dizziness, confusion or seizure-like activity Endo: Denies: polyuria or polydipsia Alfonso/Lymph: Denies: easy bleeding or tender lymph nodes All/Imm: Denies: urticaria or tongue swelling Medications/Allergies Home Medications Medication Instructions Recorded Confirmed Last Taken Type baclofen 20 mg tablet 20 mg PO BID 11/30/21 06/06/22 Unknown History carvedilol 25 mg tablet 25 mg PO BID 11/30/21 06/06/22 Unknown History clopidogrel 75 mg tablet (Plavix) 75 mg PO DAILY 11/30/21 06/06/22 Unknown History lisinopril 20 mg tablet 20 mg PO BID 11/30/21 06/06/22 Unknown History carvedilol 3.125 mg tablet (Coreg) 3.125 mg PO BID 12/24/21 06/06/22 05/05/22 History clopidogrel 75 mg tablet (Plavix) 75 mg PO DAILY 12/24/21 06/06/22 05/05/22 History gabapentin 300 mg capsule 300 mg PO TID 12/24/21 06/06/22 05/05/22 History night splint #1 ea 03/03/22 06/06/22 Unknown Rx CAM boot #1 ea 03/05/22 06/06/22 Unknown Rx Crutches #1 ea 03/05/22 06/06/22 Unknown Rx Crutches #1 ea 04/02/22 06/06/22 Unknown Rx ibuprofen 800 mg tablet 800 mg PO Q8H PRN pain #36 tabs 04/21/22 06/06/22 Unknown Rx aripiprazole 15 mg tablet 15 mg PO BEDTIME 05/06/22 06/06/22 05/05/22 History bupropion HCl 450 mg 24 hr tablet, 450 mg PO DAILY 05/06/22 06/06/22 05/05/22 History extended release fluoxetine 20 mg capsule 20 mg PO DAILY 05/06/22 06/06/22 05/05/22 History fluticasone 500 mcg-salmeterol 50 1 inh inhalation BID 05/06/22 06/06/22 05/05/22 History mcg/dose blistr powdr for inhalation (Advair Diskus) hydrocodone 7.5 mg-acetaminophen 1 tab PO Q4H PRN Pain 05/06/22 06/06/22 Unknown History 325 mg tablet lisinopril 40 mg tablet 40 mg PO BID 05/06/22 06/06/22 05/05/22 History potassium chloride 20 mEq 20 meq PO BID #7 tabs 05/06/22 06/06/22 Unknown Rx tablet,extended release(part/cryst) (Klor-Con M) ibuprofen 800 mg tablet 800 mg PO Q8H 5 days #15 tabs 06/06/22 06/06/22 Unknown Rx Allergies Allergy/AdvReac Type Severity Reaction Status Date / Time ketorolac [From Toradol] Allergy ALGY-Hives Verified 06/09/22 20:40 compazine Allergy Unknown Unknown Uncoded 06/09/22 22:56 toradol Allergy ALGY-Hives Uncoded 06/09/22 20:41 PFSH Acute PFSH: Medical History CAD (coronary artery disease) Cirrhosis COPD (chronic obstructive pulmonary disease) Hemochromatosis Hypertension Nocturnal hypoxia NSAID long-term use Smoking addiction Status post chemoradiation Vaginal tumors Surgical History H/O vaginal surgery Family History Denies family history of Colon cancer Ovarian cancer Diabetes Heart disease Hypercholesteremia Breast cancer Hypertension Uterine cancer Thyroid disease Stroke Social History Smoking and tobacco status: current every day smoker cigarettes [ Other cigarette details: cut down to 0.5 ppd] Alcohol intake: never Substance/Drug Use: never Lives independently: Yes Household members: significant other Marital status: Single Vitals/I&O/Wt Last Vital Signs Pulse 94 06/09/22 22:00 Resp 21 H 06/09/22 22:00 BP 144/87 06/09/22 22:00 Pulse Ox 94 06/09/22 22:00 O2 Del Method 06/09/22 19:25 Weight last 48 hrs Weight 87.09 kg Physical Exam Narrative: Boyfriend walking out. Const: COMMON NORMALS: patient oriented x3 and alert GENERAL APPEARANCE: cooperative NUTRITIONAL APPEARANCE: obese ORIENTATION/CONSCIOUSNESS: Yes awake HENMT: COMMON NORMALS: oropharynx normal Neck/C-Spine: COMMON NORMALS: no JVD Resp: COMMON NORMALS: normal respiratory effort AUSCULTATION: rhonchi right upper Cardio: COMMON NORMALS: no JVD, regular rhythm, S1 normal heart sound present, S2 normal heart sound present and No murmurs present (Cardio) RHYTHM: regular rhythm HEART SOUNDS: S1 normal heart sound present and S2 normal heart sound present GI: COMMON NORMALS: Normal to inspection, nondistended, normoactive bowel sounds present, Soft to palpation and non-tender INSPECTION: Yes abdominal distension PALPATION: Yes Soft to palpation Extremity: COMMON NORMALS: no joint enlargement GENERAL: Yes edema (1+) Neuro: COMMON NORMALS: patient oriented x3 and moves all extremities SENSORIUM/ORIENTATION: Yes alert Skin: COMMON NORMALS: no rashes or lesions noted GENERAL SKIN EXAM: no rashes or lesions noted Data 06/09/22 19:45 06/09/22 19:45 A&P Assessment and plan (1) Chest pain: Chest pain across the chest, radiating to the back, to the right arm. History of CAD, status post stenting x5. Troponin with mild elevation of 16, 16.57. EKG with ST abnormality, TWI as described above. Repeat EKG appears with improvement, some reciprocal change laterally in precordial leads with LVH on my interpretation. D-dimer requested, resulting normal. As chest pain persists, 7/10, radiating to the back, discussed with her nitro drip, as well as assessment with CTA to rule out large vessel dissection. Discussed with ER physician. Complete troponin EKG series. Continue Plavix, start aspirin. Start statin. Continue anticoagulation, received Lovenox. Assess TTE. Monitor on telemetry. Cardiology consultation. Continue to optimize blood pressure control. Requiring IV morphine for pain. ER documentation reviewed. Discontinue ibuprofen at discharge, avoid NSAIDs due to cardiovascular risk. (2) EKG abnormality: ST depression, TWI on initial EKG. (3) CAD (coronary artery disease): History of CAD, stenting x5 (4) Hypertension: Hypertensive on present blood pressures in 200s. Seems with pain control did improve to 150s-160s. Still hypertensive. Still chest pain. Starting nitroglycerin drip, close blood pressure monitoring on CSU. Continue lisinopril. Unclear which dose she takes. Requesting medications to be confirmed. (5) NSAID long-term use: Discontinue ibuprofen at discharge, avoid NSAIDs due to cardiovascular risk. 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 States will be establishing care with hematology. Possibility of decompensation of cirrhosis, states abdomen has gotten quite distended. Also lower extremity edema. Orr US abdo check for ascites. Check INR. Consider follow-up with hepatology. Follow-up with PCP for cirrhosis management. (7) Smoking addiction: Discussed with her risks with smoking, smoking cessation for 4 minutes, she states she understands she needs to quit. Has been cutting down, cut down to half a pack per day. Encouraged her to quit entirely. She declines nicotine replacement. Continue to encourage cessation. Follow-up with PCP. (8) Abdominal distention: Limited ultrasound for ascites with cirrhosis. Never had paracentesis in the past. (9) COPD (chronic obstructive pulmonary disease): Mild rhonchi on the right. DuoNeb scheduled QID, and as needed. Mucinex. Flutter valve. (10) Nocturnal hypoxia: Wears 2 L of oxygen at night. Consider referral for sleep study after discharge. Plan LE edema: Follow-up CTA results. TTE. Lasix 20mg PO daily. Monitor I&O, elect rolytes, renal function. Consider spironolactone if ascites. Hypokalemia: Replace potassium. Follow-up chemistry, magnesium. Mild ovation creatinine: 1, BUN 23. Stop ibuprofen, discontinue. Back in April creatinine normal. Follow-up renal function. Hemochromatosis Obesity Other medical problems Requested medications to be confirmed, please reconcile once available. Attestations Medical Necessity Statement*: Admission of over 2 midnights anticipated for assessment management of unstable angina in a lady with prior CAD, coronary intervention x5, poorly controlled hypertension, liver cirrhosis, COPD, additional comorbidities as above. Diagnoses Chest pain R07.9 EKG abnormality R94.31 CAD (coronary artery disease) I25.10 Hypertension I10 NSAID long-term use Z79.1 Cirrhosis K74.60 Smoking addiction F17.200 Abdominal distention R14.0 COPD (chronic obstructive pulmonary disease) J44.9 Nocturnal hypoxia G47.34
[2022-06-09] MEDS: enoxaparin 100 mg/mL Syringe 90 MG SUBCUT (23:08)
[2022-06-09] MEDS: iohexol 350 mg/mL 500 mL Btl (per mL) IV (23:15)
[2022-06-09] MEDS: FUROsemide 20 mg Tablet PO (23:54)
[2022-06-09] MEDS: aspirin 325 mg Tablet PO (23:54)
[2022-06-09] MEDS: potassium chloride ER 20 mEq Tablet PO (23:55)
[2022-06-09] MEDS: guaiFENesin 600 mg Tablet PO (23:55)
[2022-06-09] MEDS: atorvastatin 40 mg Tablet PO (23:56)
[2022-06-09] MEDS: pantoprazole 40 mg SDV IVP (23:56)
[2022-06-10] VITALS (96 sets, daily range): BP systolic 67–205; BP diastolic 43–160; PULSE 78–99; RESP 16–32; TEMP 36.7–36.9; O2SAT 88–98
[2022-06-10] MEDS: nitroglycerin drip 50 MG/250 ML PREMIX IV (00:07)
[2022-06-10 01:04] LABS: INR 1.02 (0.8-1.2)
[2022-06-10 01:09] LABS: Troponin 5 6HR 17.09 ng/L (0-10)
--- NOTE | 2022-06-10 01:09 | ECG_ITS ---
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 Measurements Intervals [place] Rate: 88 P: 48 [place]: 164 QRS: 49 QRSD: 88 T: -9 QT: 377 QTc: 457 Interpretive Statements SINUS RHYTHM WITH FREQUENT SUPRAVENTRICULAR PREMATURE COMPLEXES ABNORMAL RHYTHM ECG Diffuse nonspecific ST-T changes. Possible old inferior wall NC. Compared to ECG 06/09/2022 21:29:05 Left ventricular hypertrophy no longer present ST (T wave) deviation no longer present Electronically Signed On 06-10-2022 23:15:31 CDT by Ivis Drake M.D. [id number]
[2022-06-10 01:12] LABS: Albumin Level 3.8 g/dL (3.5-5.2); Alkaline Phosphatase 90 U/L (35-105); Blood Urea Nitrogen 23 mg/dL (6-20); Calcium 8.8 mg/dL (8.5-10.5); Carbon Dioxide 24 mmol/L (22-29); Chloride 107 mmol/L (98-107); Globulin 2.8 g/dL (1.3-4.6); Glomerular Filtration Rate 64.8 mL/min (90-130); Glucose 113 mg/dL (65-115); Osmolality Calculated 300 mOsm/kg (285-295); Sodium 143 mmol/L (136-145); Total Bilirubin 0.3 mg/dL (0.15-1.2); Total Protein 6.6 g/dL (6.6-8.7)
[2022-06-10 01:26] LABS: Troponin 5 6HR Delta 1.09 ng/L (0-12)
[2022-06-10 01:27] LABS: Alanine Aminotransferase 28 U/L (0-33); Anion Gap 16.3 (5-19); Aspartate Amino Transferase 28 U/L (0-32); Potassium 4.3 mmol/L (3.5-5.1)
[2022-06-10 03:43] LABS: Basophils # 0.1 10^3/uL (0.0-0.1); Basophils % 0.9 %; Eosinophils # 0.1 10^3/uL (0.0-0.8); Eosinophils % 1.9 %; Hematocrit 43.7 % (37.0-47.0); Hemoglobin 14.4 g/dL (11.5-15.3); Lymphocytes # 1.5 10^3/uL (0.8-4.8); Lymphocytes % 28.3 %; Mean Corpuscular Volume 103.1 fl (81-99); Mean Platelet Volume 9.5 fL (7.4-10.4); Monocytes # 0.4 10^3/uL (0.2-0.9); Monocytes % 7.8 %; Neutrophils # 3.24 10^3/uL (1.8-7.7); Neutrophils % 60.4 %; Nucleated Red Blood Cells % 0 %; Platelet Count 143 10^3/cmm (130-400); Red Blood Count 4.24 10^6/uL (4.1-5.3); Red Cell Distribution Width 13.5 % (12.1-15.1); White Blood Count 5.4 10^3/uL (4.0-10.0)
[2022-06-10] MEDS: morphine 4 mg/mL SDV 1 mL IVP ×5 (03:51→21:48)
[2022-06-10] MEDS: ondansetron 2 mg/ML SDV 2 mL 4 MG IVP (05:51)
--- NOTE | 2022-06-10 06:23 | PC.NURSE ---
Pt experienced episode of nausea. Approximately 20mls of emesis noted on bed linen. Pt administered anti-emetic per EMAR. Answered yes to chest pain with event; pain rated 3/10, but improving. Patient provided with fresh sheets and oral care. Promptly fell back to sleep.
--- NOTE | 2022-06-10 07:24 | P.CONIM_ITS ---
Providers/Reason For Consult Consulting Physician/Specialty*: FIDE Drake MD/cardiology Reason for Consult*: Patient with unstable angina Requesting Physician: Dr. Jung Attending Physician: Domenico Jung Primary Care Provider: Raynn Burk History of Present Illness History of Present Illness Le Barnhart is a 56 year old female with a history of coronary disease, status post multiple PCI's, is presenting with complaints of chest pain. She has been having the pain off and on for the last several hours. Cardiology consult is requested for further cardiac evaluation recommendations. This patient apparently had a myocardial infarction in 2016. At that time, she was treated in the hospital in [place] and had 3 stent placement. Details are not available. In 2019, she presented with unstable anginal symptoms to the hospital in [place]. She had a cardiac colorization followed by 2 stent placement. The details are again not known at this point. According to the patient, she been doing okay up until yesterday afternoon when she started having the chest pain. She has been noticing some swelling of the lower extremities, usually happens when the blood pressure is high. The pain was in the mid substernal region, radiating to her back between the shoulder blades and also the right arm. She had associated shortness of breath and some nausea. No dizziness, palpitation or syncopal episode. Intensity of the pain was 7-8/10. The pain has been waxing and waning since then. At the time of my examination the, the pain was 8/10. Her EKG showed diffuse nonspecific ST-T changes. The troponin T was slightly elevated to 16 at the time of admission. It remains unchanged. The echocardiogram revealed mild diffuse hypokinesia of the inferior wall. The overall LV ejection fraction was around 50%. She has a history of hypertension and dyslipidemia. For the last 1 month, the blood pressure has been staying somewhat out of control. She has a [id number] history of smoking abuse. She is trying to quit. Currently she smokes 1 or 2 cigarettes a day. No alcohol abuse or any other substance abuse. Her father had a massive heart attack in his 60s and of the same. No other significant family history. She is unmarried and have no children. Review of Systems Narrative: CONSTITUTIONAL: No fever or chills. EYES: No blurring of vision or other visual disturbances lately. ENT: No hoarseness of voice, auditory disturbances or sore throat. CARDIOVASCULAR: As mentioned above. RESPIRATORY: No significant cough. History of cough and COPD GASTROINTESTINAL: No hematemesis or melena. GENITOURINARY: No dysuria or hematuria. INTEGUMENTARY: No skin rashes or history of skin cancer. NEURO: No transient ischemic attacks or amaurosis. PSYCHIATRIC: No history of psychosis or major depression. HEMATOLOGIC: No bleeding disorders or significant anemia. ENDOCRINE: No history of polyuria or polydipsia. MUSCULOSKELETAL: No recent joint pain or swelling. ALLERGY/IMMUNOLOGY: As mentioned above. Medications/Allergies Home Medications Medication Instructions Recorded Confirmed Last Taken Type carvedilol 25 mg tablet 50 mg PO BID 11/30/21 06/10/22 Unknown History clopidogrel 75 mg tablet (Plavix) 75 mg PO QAM 12/24/21 06/10/22 05/05/22 History night splint #1 ea 03/03/22 06/10/22 Unknown Rx CAM boot #1 ea 03/05/22 06/10/22 Unknown Rx Crutches #1 ea 03/05/22 06/10/22 Unknown Rx Crutches #1 ea 04/02/22 06/10/22 Unknown Rx bupropion HCl 450 mg 24 hr tablet, 450 mg PO QAM 05/06/22 06/10/22 05/05/22 History extended release fluoxetine 20 mg capsule 20 mg PO QAM 05/06/22 06/10/22 05/05/22 History fluticasone 500 mcg-salmeterol 50 1 inh inhalation BID 05/06/22 06/10/22 05/05/22 History mcg/dose blistr powdr for inhalation (Advair Diskus) hydrocodone 7.5 mg-acetaminophen 1 tab PO Q4H PRN Pain 05/06/22 06/10/22 Unknown History 325 mg tablet lisinopril 40 mg tablet 40 mg PO BID 05/06/22 06/10/22 05/05/22 History albuterol sulfate 2.5 mg/3 mL 2.5 mg inhalation Q4H PRN 06/10/22 06/10/22 Unknown History (0.083 %) solution for nebulization Shortness Of Breath albuterol sulfate 90 mcg/actuation 2 puff inhalation QID PRN 06/10/22 06/10/22 Unknown History aerosol inhaler (Ventolin HFA) Shortness Of Breath aripiprazole 30 mg tablet 30 mg PO QAM 06/10/22 06/10/22 Unknown History aspirin 81 mg tablet,delayed 81 mg PO QAM 06/10/22 06/10/22 Unknown History release bumetanide 1 mg tablet 1 mg PO QAM 06/10/22 06/10/22 Unknown History hydrochlorothiazide 25 mg tablet 25 mg PO QAM 06/10/22 06/10/22 Unknown History hydroxyzine HCl 25 mg tablet 25 - 50 mg PO QID PRN Anxiety 06/10/22 06/10/22 Unknown History ibuprofen 800 mg tablet 800 mg PO Q8H PRN Pain 06/10/22 06/10/22 Unknown History Allergies Allergy/AdvReac Type Severity Reaction Status Date / Time ketorolac [From Toradol] Allergy ALGY-Hives Verified 06/10/22 07:48 prochlorperazine Allergy Unknown Verified 06/10/22 07:48 [From Compazine] compazine Allergy Unknown Unknown Uncoded 06/09/22 22:56 toradol Allergy ALGY-Hives Uncoded 06/09/22 20:41 Current Medications Generic Name Dose Route Start Last Admin Trade Name Freq PRN Reason Stop Dose Admin Aspirin 325 mg 06/09/22 23:39 06/09/22 23:54 Aspirin 325 Mg Tablet PO 325 mg BEDTIME MANOLO Administration Atorvastatin Calcium 40 mg 06/09/22 23:39 06/09/22 23:56 Atorvastatin 40 Mg Tablet PO 40 mg BEDTIME MANOLO Administration Furosemide 20 mg 06/09/22 23:39 06/09/22 23:54 Furosemide 20 Mg Tablet PO 20 mg DAILY@0800 MANOLO Administration Guaifenesin 600 mg 06/09/22 23:39 06/09/22 23:55 Guaifenesin 600 Mg Tablet PO 600 mg BID MANOLO Administration Nitroglycerin/Dextrose 50 mg in 250 mls @ 0 mls/hr 06/09/22 23:39 06/10/22 03:40 Nitroglycerin Drip IV 0 mcg/min .Q0M MANOLO 0 mls/hr Titration Protocol Per Protocol Morphine Sulfate 4 mg 06/09/22 23:39 06/10/22 03:51 Morphine 4 Mg/Ml Sdv 1 Ml IVP 4 mg Q4H PRN Administration SEVERE PAIN Ondansetron HCl 4 mg 06/09/22 23:39 06/10/22 05:51 Ondansetron 2 Mg/Ml Sdv 2 Ml IVP 4 mg Q8H PRN Administration vomiting, or N/V if npo Pantoprazole Sodium 40 mg 06/09/22 23:45 06/09/22 23:56 Pantoprazole 40 Mg Sdv IVP 40 mg Q24H MANOLO Administration PFSH Acute PFSH: Medical History CAD (coronary artery disease) Cirrhosis COPD (chronic obstructive pulmonary disease) Hemochromatosis Hypertension Nocturnal hypoxia NSAID long-term use Smoking addiction Status post chemoradiation Vaginal tumors Surgical History H/O vaginal surgery Family History Denies family history of Colon cancer Ovarian cancer Diabetes Heart disease Hypercholesteremia Breast cancer Hypertension Uterine cancer Thyroid disease Stroke Social History Smoking and tobacco status: current every day smoker cigarettes [ Other cigarette details: cut down to 0.5 ppd] Alcohol intake: never Substance/Drug Use: never Lives independently: Yes Household members: significant other Marital status: Single Vitals/I&O/Wt Last Vital Signs Temp 98.0 F 06/10/22 04:00 Pulse 99 06/10/22 06:00 Resp 21 H 06/10/22 04:00 BP 149/86 06/10/22 04:00 Pulse Ox 93 06/10/22 04:00 O2 Del Method 06/10/22 04:00 O2 Flow Rate 2 06/10/22 04:00 06/09/22 06/10/22 06/10/22 22:59 06:59 14:59 Intake Total 5.325 / 5.325 Output Total 400 / 400 Balance -394.675 / -394.675 Weight last 48 hrs Weight 192 lb Weight 192 lb Weight 192 lb Physical Exam Narrative: GENERAL: The patient is alert and oriented times three. Not in any acute distress. HEENT: No significant pallor, icterus or lymphadenopathy.Oral cavity: There are no mucous membrane lesions. NECK: Trachea appears to be central. No masses noted. No JVD or thyromegaly appreciated. RESPIRATORY: Chest is symmetrical. No intercostals muscle retraction or any accessory muscle activation. There is no chest wall tenderness. Breath sounds are heard bilaterally. No rales or rhonchi heard. No evidence of any consolidation. BREASTS: Deferred. HEART: The heart sounds are normal. No S3 or S4. No significant murmurs. No pericardial rub ABDOMEN: No vessel pulsations or distention. No tenderness. No organomegaly appreciated. Bowel sounds are normally heard. : Deferred. RECTAL: Deferred. LYMPHATIC: No lymphadenopathy noted in the neck. EXTREMITIES: No edema or cyanosis. No clubbing. The right radial pulses very weak. Trace edema both lower extremities. MUSCULOSKELETAL: No acute joint deformities or swelling SKIN: There are no significant rashes or ecchymosis NEUROPSYCHIATRIC: The patient is alert and oriented x3. Appears to be in a good mood. No tremors or rigidity noted. Data 06/10/22 03:18 06/10/22 00:41 Micro: Laboratory Last Values WBC 5.4 10^3/uL (4.0-10.0) 06/10/22 03:18 RBC 4.24 10^6/uL (4.1-5.3) 06/10/22 03:18 Hgb 14.4 g/dL (11.5-15.3) 06/10/22 03:18 Hct 43.7 % (37.0-47.0) 06/10/22 03:18 MCV 103.1 fl (81-99) H 06/10/22 03:18 MCH 34.0 pg (28.0-34.0) 06/10/22 03:18 MCHC 33.0 g/dL (30.0-36.0) 06/10/22 03:18 RDW 13.5 % (12.1-15.1) 06/10/22 03:18 Plt Count 143 10^3/cmm (130-400) 06/10/22 03:18 MPV 9.5 fL (7.4-10.4) 06/10/22 03:18 Neut % (Auto) 60.4 % 06/10/22 03:18 Lymph % (Auto) 28.3 % 06/10/22 03:18 [place] % (Auto) 7.8 % 06/10/22 03:18 Eos % (Auto) 1.9 % 06/10/22 03:18 Baso % (Auto) 0.9 % 06/10/22 03:18 Neut # (Auto) 3.24 10^3/uL (1.8-7.7) 06/10/22 03:18 Lymph # (Auto) 1.5 10^3/uL (0.8-4.8) 06/10/22 03:18 [place] # (Auto) 0.4 10^3/uL (0.2-0.9) 06/10/22 03:18 Eos # (Auto) 0.1 10^3/uL (0.0-0.8) 06/10/22 03:18 Baso # (Auto) 0.1 10^3/uL (0.0-0.1) 06/10/22 03:18 Nucleated RBC % (auto) 0 % 06/10/22 03:18 Nucleated RBCs # 0.0 /100WBC 06/10/22 03:18 PT 13.70 SECONDS (12.1-14.9) 06/10/22 00:41 INR 1.02 (0.8-1.2) 06/10/22 00:41 D-Dimer 0.44 ug/mIFEU (0-0.59) 06/09/22 19:45 Sodium 143 mmol/L (136-145) 06/10/22 00:41 Potassium 4.3 mmol/L (3.5-5.1) 06/10/22 00:41 Chloride 107 mmol/L (98-107) 06/10/22 00:41 Carbon Dioxide 24 mmol/L (22-29) 06/10/22 00:41 Anion Gap 16.3 (5-19) 06/10/22 00:41 BUN 23 mg/dL (6-20) H 06/10/22 00:41 Creatinine 0.9 mg/dL (0.5-0.9) 06/10/22 00:41 GFR Calculation 64.8 mL/min (90-130) L 06/10/22 00:41 Glucose 113 mg/dL (65-115) 06/10/22 00:41 Calculated Osmolality 300 mOsm/kg (285-295) H 06/10/22 00:41 Calcium 8.8 mg/dL (8.5-10.5) 06/10/22 00:41 Magnesium 2.0 mg/dL (1.7-2.3) 06/10/22 00:41 Total Bilirubin 0.3 mg/dL (0.15-1.2) 06/10/22 00:41 AST 28 U/L (0-32) 06/10/22 00:41 ALT 28 U/L (0-33) 06/10/22 00:41 Alkaline Phosphatase 90 U/L (35-105) 06/10/22 00:41 Troponin T Baseline 16 ng/L (0-10) H 06/09/22 19:45 Troponin T 120 Minute 16.57 ng/L (0-10) H 06/09/22 21:35 Delta Troponin T 0.57 ABS# (0-10) 06/09/22 21:35 Troponin T Hi Sens 6Hr 17.09 ng/L (0-10) H 06/10/22 00:41 Troponin T Hi Sens 6Hr Delta 1.09 ng/L (0-12) 06/10/22 00:41 Total Protein 6.6 g/dL (6.6-8.7) 06/10/22 00:41 Albumin 3.8 g/dL (3.5-5.2) 06/10/22 00:41 Globulin 2.8 g/dL (1.3-4.6) 06/10/22 00:41 CTA Chest: Radiologist's impression: 1. ? Severe calcified coronary artery disease. 2. ? Mild nonspecific ground-glass opacities in the dependent portions of the upper lobes and lower lobes suggesting possible hydrostatic edema. 3. ? No pulmonary embolus or aortic dissection. ? CXR: My impression: Normal cardiac silhouette with no lung infiltrates. No acute pathology noted. EKG 1: My Interpretation: Sinus rhythm with diffuse nonspecific ST-T changes. Occasional PACs. Possible old inferior wall PR. A&P Assessment and plan (1) Atherosclerotic heart disease of [place] coronary artery with unstable angina pectoris: The patient's the clinical features consistent with unstable angina. Hemodynamically she seems to be stable. The EKG shows diffuse nonspecific ST-T changes. For further evaluation of the patient's coronary status, she may benefit from a cardiac catheterization. The risk and benefits of the procedure were discussed with the patient. The risk of bleeding, hematoma, vascular injury, myocardial infarction, myocardial perforation, malignant cardiac arrhythmias ,CVA, renal failure and other concomitant complications were explained in detail. Patient understood this well and consented to proceed. We may go ahead and do schedule this test as early as possible. In the meanwhile, she may be kept on the Plavix, aspirin, subcu Lovenox and the other current medications. (2) Hypertension: Since her blood pressure is currently seems to be in the normal range. May continue on the current medication. (3) COPD (chronic obstructive pulmonary disease): May continue on the current measures. (4) Smoking addiction: Patient is strongly advised to quit smoking. (5) Dyslipidemia: We will continue on the current medications. Plan She has a 1+ edema both lower extremities. No cyanosis. According the patient, she gained around 40 pounds in the last few months. Most likely this may explain the peripheral edema. She had abdominal ultrasound revealing no evid ence of ascites. Based on the angiogram findings, further recommendations will be made. Thank for the opportunity to evaluate this patient make these recommendations Consult Attestations Medical Necessity Statement: Patient requires continued hospital stay for close monitoring and further management Coding Level of Care Code Acute Code for [facility] Diagnoses Atherosclerotic heart disease of [place] coronary artery with unstable angina pectoris I25.110 Hypertension I10 COPD (chronic obstructive pulmonary disease) J44.9 Smoking addiction F17.200 Dyslipidemia E78.5
--- NOTE | 2022-06-10 08:18 | PC.PHAR ---
pt states she takes care of her own medications-pt states the dr increased her coreg to 50mg bid rx last filled for 25mg bid on 05/03/22 30d/s-pt states she takes bumetanidine 1mg daily rx filled 06/01/22 1mg qd prn-pt states she no longer takes mobic 15mg daily last filled 05/03/22 30d/s-pt states she doesnt takes gabapentin or baclofen-notes are made in the pharmacy comments
[2022-06-10] MEDS: FUROsemide 20 mg Tablet PO (08:26)
--- NOTE | 2022-06-10 08:35 | XACV_ITS ---
Exam Room: [facility] Ht: 163 cm Wt: 87 kg BSA: 2.02 m2 Gender: Female : 1965 Any Known Allergies: Other Exam Priority: Routine Procedure(s): Procedure Description: Diagnostic procedure Procedure Description: Left Heart Catheterization Procedure Description: Coronary Angiography Procedure Description: Pressure Wire Vidal ELIZONDO; Diagnostic Cath Status: Urgent Diagnostic Findings * The left main is a medium caliber vessel with no significant stenotic lesion. * The left anterior descending artery is a medium caliber vessel which appears to wrap around the LV apex minimally. The proximal left anterior descending artery was found to have a long stented segment which was found to be widely patent. The first diagonal vessel was found to have minimal ostial narrowing but the normal Significant stenotic lesion. The mid and distal LAD also was found no significant stenotic lesions.. * The circumflex artery was found to be a medium caliber nondominant vessel with an ostial around 60% stenosis. Rest of the vessel was found to have no significant lesions. * The right coronary artery is a medium to large caliber dominant vessel which was found to be extensively stented in the proximal mid and distal segments. The stented segments were found to be widely patent. The first RV branch is a small caliber vessel with a high-grade proximal narrowing. The PDA and the PLV branches are found to have mild diffuse intimal irregularities. Interventional Findings * PROCEDURE DETAIL: We engaged left main artery with XB 3.0 guide catheter. IV heparin was administered to maintain anticoagulation. FFR wire was advanced into distal left circumflex artery after normalization. IV adenosine was administered and FFR was performed. FFR value of 0.91 was obtained. As it was nonischemic, medical therapy was decided. iFR wire and catheter were removed. Conclusions 1. 56-year-old white female with a history of coronary disease, status post myocardial infarction, status post multiple PCI's, presenting with prolonged episode of chest pain. EKG revealing diffuse nonspecific ST-T changes, appeared to be new. In view of the patient's clinical presentation and the ongoing symptoms, in order to further evaluate her coronary status, a cardiac catheterization was recommended. Patient underwent left heart catheterization with left and right coronary angiogram today. The findings are as follows.. 2. Patent stented segments of the proximal LAD, proximal, mid and distal RCA. 60% narrowing at the ostium of the circumflex artery. Minimal intimal irregularities in the other vessels. Relatively small caliber RV branch of the right coronary artery was found to have a high-grade stenosis proximally. LVEDP of 25 mmHg. 3. Based on the angiogram findings, it does not be appropriate to consider IFR of the ostial circumflex lesion. I discussed and reviewed the angiogram findings with Dr. Escalante. Dr. Escalante concurred with this plan and took over further management of this patient at this point. . 4. Nonischemic FFR value 0.91 was obtained. Recommendations * Aggressive risk factor modification. * Outpatient cardiology follow-up in 4 weeks. Interventional RX Recommendation: medical therapy and/or counseling Diagnostic RX Recommendation: medical therapy and/or counseling Anticoagulation: Heparin LV EDP: 25 mmHg Left Ventriculography Findings: * The LV gram was not performed . The LVEDP was 25 mmHg. Pressures Phase:Rest AO : 142 / 71 ( 102 ) @ 10:45:00 AM 137 / 92 ( 111 ) @ 10:52:00 AM 82 / 4 ( 34 ) @ 10:52:00 AM 151 / 70 ( 100 ) @ 10:56:00 AM 152 / 72 ( 103 ) @ 10:56:00 AM 154 / 72 ( 104 ) @ 10:56:00 AM 138 / 62 ( 95 ) @ 11:06:00 AM 127 / 71 ( 92 ) @ 11:13:00 AM LV : 157 / -1 / 25 @ 10:55:00 AM 149 / -2 / 25 @ 10:56:00 AM Valves Phase:DefaultPhase AV : 4.0 @ 10:35:18 AM 4.0 @ 10:35:18 AM AV Mean Gradient: 16.0 @ 10:35:18 AM Clinical Evaluation EBL: 5mL-10mL Procedural Details Procedure Consent Obtained. Pre-Procedure Time Out. Identified patient by full name and date of as verbalized by the patient/guarantor. Does the consent match the physician's order: Yes. Accurate & Complete Informed Consent: Yes. Inpatient/Outpatient History & Physical on Chart: Yes. If H&P is completed, is and addenduem needed: No; If yes, is the addendum complete: N/A. Visualize and Verify Site with Patient/Guarantor: N/A. Relevant Radiology Images available: N/A. Pre-op teaching completed and patient verbalized understanding. The risks, benefits, and alternatives of sedation and/or procedure were discussed by physician. The patient agrees to continue. Procedure started. [facility] Clinical Fraility Score: 4: Vulnerable. 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 Chest Pain Symptom Assessment: Typical Angina Symptoms. Cardiovascular Instability: No. Correct patient, site and procedure confirmed by cath team. PERRLA. Strong, equal hand blackener bilaterally. Lungs clear x 5 lobes. Pre Procedural Pulses: bilateral dorsalis pedis was 3+. Pre Procedural Pulses: bilateral posterior tibial was 3+. Oxygen started at 2liters/min via nasal canula. bilateral groins was prepped with chloroprep then draped in the usual sterile fashion. Physician arrived. A 20 gauge IV was started in the right anticubital using aseptic technique. IV Fluids: 0.9% NaCl at KVO. 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 Baseline sample Acquired. HR: 80 BPM. Equipment: 5F - Femoral. Heparinized Saline (2 units/mL), 1000 mL bag. Kit, Micropuncture. Cardiac Cath Pack. ACIST Manifold Kit Model BT 2000. Physician scrubbed in. Immediate Pre-Procedure Time Out. Correct Patient: Yes; Correct Procedure: Yes; Correct Site: Yes; Correct Patient Position: Yes; Correct Supplies: Yes; Dried Flammable Prep: Yes; Blood Products Available: N/A;. Lidocaine 1% infiltrated to the right groin. Arterial access obtained with micropuncture set. A 5 brazilian JL4 catheter in over wire. Multiple views taken of left coronary artery. Catheter removed over the exchange wire. A 5 brazilian JR4 catheter in over wire. Multiple views taken of right coronary artery. Called Dr Escalante to come view images. Catheter removed over the exchange wire. A 5 brazilian Angled Pig catheter in over wire. EDP Sample taken: LV 157/-2,25; HR: 79 BPM; SpO2: 74%. Pullback taken: LV 149/-3,25; AO 151/70(100); Mean: 16mmHg, Peak to Peak: 4mmHg, SEP: 21sec/min; HR: 88 BPM; SpO2: 94%. Catheter removed over the exchange wire. Physician scrubbed out. Dr Escalante arrived. Dr. Escalante scrubbed in to perform intervention. Sheath upsized to a 6 Fr. 6 brazilian XB 3.5 guide catheter was inserted over the wire. OmniWire IFR pressure guidewire was advanced through the guide catheter to lesion in the ostial Circ. adenosine 731 ml/hr for 2 min to obtain FFR. Fractional flow reserve measurements obtained. FFR 0.91. Pressure wire removed. Guide catheter out. A Right femoral angiogram was performed to determine safe placement of closure device. Physciain scrubbed out. A Suture was successful obtaining hemostatsis at the Right Femoral artery insertion site. Sheath(s) sutured into position with 2-0 silk and sterile 4x4's and Op-site applied over the site. No oozing or signs and symptoms of hematoma noted. Arterial sheath flushed and connected to tranducer and pressure bag with heparinized saline. Post Procedure: Pulses reassessed and unchanged. PERRLA. Strong, equal hand blackener bilaterally. No VTE prophylaxis required. Contrast type used: Omnipaque 300 mgI/mL, 500 mL bottle. Post-op diagnosis: moderat ostial circ stenosis, FFR non ischemic. Complications: none. Estimated blood loss: 5mL-10mL. Medication's Wasted: Other = fentanyl 100 mcg. Medication's Wasted: Other = adenosine 60 mg. Total IV fluids: 80 mL. Responsiveness - Normal response to verbal stimuli; alert and oriented, PERRLA. Airway - Unaffected, no intervention required; spontaneous ventilation. Circulation: W/N/L, pulses unchanged. Nausea/Vomiting: No. Procedure completed. Patient transferred by bed to ICU. Vital chart was stopped. Access Site Site: Right Femoral artery Sheath Size: 5 Fr Hemostasis Method: Suture Hemostasis Success: Successful Procedure Medications Start: 9:30 AM Stop: 9:30 AM Medication: Versed Amount: 1 mg Route: I.V. Start: 9:39 AM Stop: 9:39 AM Medication: Fentanyl Amount: 50 mcg Route: I.V. Start: 9:52 AM Stop: 9:52 AM Medication: Versed Amount: 0.5 mg Route: I.V. Start: 9:54 AM Stop: 9:54 AM Medication: Heparin Amount: 1000 units Route: I.V. Start: 10:06 AM Stop: 10:06 AM Medication: Heparin Amount: 6000 units Route: I.V. Start: 10:07 AM Stop: 10:07 AM Medication: Versed Amount: 0.5 mg Route: I.V. Start: 10:16 AM Stop: 10:16 AM Medication: Heparin Amount: 2000 units Route: I.V. I, the attending physician, have reviewed and verified all procedure medications. Yes, all medications given per verbal order History/Risk Factors Hypertension: Yes Dyslipidemia: No Peripheral Arterial Disease (PAD): No Myocardial Infarction (AK): No Obesity: No Renal Disease: No Tobacco Use: Current/Recent(w/in 1 year) Prior Interventions PCI: Yes CABG: No Valve Surgery: No Report Signatures Interventional Workflow Finalized by David Escalante MD on 06/17/2022 12:14 PM Diagnostic Workflow Finalized by Dr Ivis Drake MD [facility] on 06/10/2022 09:50 PM
--- NOTE | 2022-06-10 08:52 | W.PM.OPSUD ---
Surgery/Procedure H&P Update DATE OF PROCEDURE: June 10, 2022 DATE H&P PERFORMED: 06/10/22 H&P UPDATE INFORMATION: I have reviewed H&P completed within last 30 days, I have examined patient prior to procedure and No changes to prior documentation PREOP DIAGNOSIS: ASHD/unstable angina PRIMARY INDICATION FOR PROCEDURE: Patient with unstable anginal symptoms, status post multiple PCI's PLANNED PROCEDURE: Left heart catheterization with coronary angiogram, LV angiogram and possible PCI PATIENT REASSESSED PRIOR TO SEDATION, WITH NO CHANGE NOTED: Yes PHYSICAL EXAM: alert, oriented x 3, clear to auscultation bilaterally and regular rate & rhythm AIRWAY EVAL/ANESTHESIA PLAN: normal airway, see other exam findings, ASA III, Local Anesthesia, Risks, benefits & alternatives of sedation and/or procedure discussed and Patient agrees to continue as planned
--- NOTE | 2022-06-10 08:55 | PC.NURSE ---
1840 Dr. Drake here, seeing patient, complaint of chest pain and for pain med. Dr. Drake sending to lift slab operator very soon, shave groin area. Morphine 4mg given iv, patient very anxious, calling family and friends. explained cath procedure , had sign permit.
--- NOTE | 2022-06-10 11:01 | PC.NURSE ---
1045 return from laborer tan house via bed awake and alert with sheath in right groin connected to pressure bag, and NS fluid infusing via right a/c iv site. Requesting sprite, but no c/o pain. Falling off to sleep frequently.
[2022-06-10] MEDS: ipratropium-albuterol 3 mL Neb INHALATION (11:49)
--- NOTE | 2022-06-10 11:55 | PM.PN ---
Subjective Subjective: Overnight labs and H&P reveiwed. Patient seen post computer lab para professional visit this mornign. Tolerated procedure well. CUrently states that her chest pain has improved. Please see computer lab para professional report for details. She is still mildly sedated, however answers all questions appropriately Medications: Reviewed: Yes Vitals/I&O/Wt Last Vital Signs Temp 98.4 F 06/10/22 20:00 Pulse 82 06/10/22 22:30 Resp 21 H 06/10/22 22:30 BP 135/97 06/10/22 22:30 Pulse Ox 94 06/10/22 22:30 O2 Del Method 06/10/22 20:00 O2 Flow Rate 3 06/10/22 20:00 06/10/22 06/10/22 06/10/22 06:59 14:59 22:59 Intake Total 5.325 / 5.325 180 / 180 180 / 360 Output Total 400 / 400 1050 / 1050 700 / 1750 Balance -394.675 / -394.675 -870 / -870 -520 / -1390 Weight last 48 hrs Weight 87.09 kg Weight 87.09 kg Weight 87.09 kg Physical Exam Narrative: General: No acute distress, AO x3 HEENT: PERRLA, pupils bilaterally equal and reactive, pallors not present Chest: Normal vesicular breath sounds, no added sounds, equal good air entry bilaterally CVS: S1-S2 regular, no murmurs, no tachycardia, no gallops, no rubs Abdomen: Soft, nontender, no organomegaly, bowel sounds present Neuro: No focal deficits, no facial deformity, AO x3, power 5/5 in all limbs Extremities: B/L Le pitting edema Data 06/10/22 03:18 06/10/22 00:41 A&P Assessment and plan (1) Chest pain: Chest pain across the chest, radiating to the back, to the right arm. evaluated by cardiology this morning Taken to cath lasb findings per computer lab para professional report all stents patient, noted to have ostial lesion Continue Plavix, start aspirin. Start statin. pending TTE. Monitor on telemetry. Requiring IV morphine for pain. (2) EKG abnormality: ST depression, TWI on initial EKG. (3) CAD (coronary artery disease): History of CAD, stenting x5 (4) Hypertension: Hypertensive on admissions. currently improved Continue lisinopril. (5) NSAID long-term use: Discontinue ibuprofen at discharge, avoid NSAIDs due to cardiovascular risk. 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 States will be establishing care with hematology. Possibility of decompensation of cirrhosis, states abdomen has gotten quite distended. Also lower extremity edema. Orr US abdo without ascites Consider follow-up with hepatology. Follow-up with PCP for cirrhosis management. (7) Smoking addiction: Continue to encourage cessation. Follow-up with PCP. (8) Abdominal distention: Limited ultrasound w/o ascites (9) COPD (chronic obstructive pulmonary disease): DuoNeb scheduled QID, and as needed. Mucinex. Flutter valve. (10) Nocturnal hypoxia: Wears 2 L of oxygen at night. Consider referral for sleep study after discharge. Plan LE edema: Lasix 20mg PO daily. Monitor I&O, electrolytes, renal function. Hemochromatosis Obesity Other medical problems Attestations Medical Necessity Statement*: s/p coronary angiogram today, ongoing need for optimization of volume status Coding Level of Care Code Acute Code for Chg Fwd Diagnoses Chest pain R07.9 EKG abnormality R94.31 CAD (coronary artery disease) I25.10 Hypertension I10 NSAID long-term use Z79.1 Cirrhosis K74.60 Smoking addiction F17.200 Abdominal distention R14.0 COPD (chronic obstructive pulmonary disease) J44.9 Nocturnal hypoxia G47.34
[2022-06-10 13:18] LABS: Partial Thromboplastin Time 136.6 SECONDS (23.9-36.7)
[2022-06-10 14:23] LABS: Partial Thromboplastin Time 57.2 SECONDS (23.9-36.7)
--- NOTE | 2022-06-10 14:27 | PC.NURSE ---
1420 Will ask pharmacy to retime Lovenox after cardiac sheath pulled.
--- NOTE | 2022-06-10 14:38 | PC.NURSE ---
6183 Lab reported PTT value of 57 and asking if I am expecting this drastic change from 2 hours prior. 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 Will order another PTT>
--- NOTE | 2022-06-10 15:29 | PC.NURSE ---
1500 Continuing to check right groin with sheath in, no drainage, edema, or firmness noted. Patient and visitor looking and pull at r. groin dressing. Instructed to be very careful, not to touch or pull on, needs to be kept very clean and still until PTT is at the correct level to remove it. Will draw another PTT at 1530.
[2022-06-10 16:34] LABS: Partial Thromboplastin Time 31.3 SECONDS (23.9-36.7)
[2022-06-10] MEDS: guaiFENesin 600 mg Tablet PO (17:37)
--- NOTE | 2022-06-10 17:47 | PC.NURSE ---
1711 Removed r groin sheath after pulled back blood in pressure line, removed suture then held pressure 13 minutes, then continued to hold for 10 more minutes, with no bleeding, no firmness and no edema noted. O2 sat probe on right toe to watch pulse in right lower extremity. Clear occlusive dressing applied to right groin site. VSS. Instructed patient to not raise head above 30 degrees or bend right leg for 4 more hours.
--- NOTE | 2022-06-10 18:13 | PC.NURSE ---
1800 right groin has no bleeding,no firmness and no edema noted.
[2022-06-10] MEDS: atorvastatin 40 mg Tablet PO (20:14)
[2022-06-10] MEDS: aspirin 325 mg Tablet PO (20:14)
--- NOTE | 2022-06-10 23:39 | USCV_ITS ---
Le Barnhart Age: 56 Gender: F : 1965 Exam Date: 06/10/2022 07:51 Ordering Phys: Domenico Jung MD Technologist: WALI Exam Location: [facility] [place] Indication: CHEST PAIN , CAD BP: 140 / 65 HR: 84 Rhythm: Sinus Technical Quality: Adequate MEASUREMENTS (Male / Female) Normal Values 2D ECHO LVOT Diameter 2.0 cm LV Ejection Fraction MOD 2C 58.0 % LV Ejection Fraction 2C AL 58.2 % LA Diameter 3.4 cm LA Width 2.5 cm LA Height 4.8 cm RA Width 2.9 cm RA Height 3.6 cm Aorta at Sinotubular Diameter 2.2 cm IVC Diameter 1.2 cm M-MODE Aortic Annulus Diameter 2.7 cm LA Ao Ratio MM 1.4 MV E Point Septal Separation 1.3 cm DOPPLER AV Peak Velocity 171.0 cm/s LVOT Peak Velocity 137.0 cm/s AV Area Cont Eq vti 2.8 cm squared AV Area Cont Eq pk 2.4 cm squared MV Peak Velocity 95.0 cm/s MV Area PHT 3.7 cm squared Mitral E to A Ratio 0.8 MV E' Velocity 36.0 cm/s Mitral E to MV E' Ratio 7.2 Mitral E to LV E' Lateral Ratio 6.5 Mitral E to LV E' Septal Ratio 8.1 TR Peak Velocity 194.3 cm/s TR Peak Gradient 15.1 mmHg TR Mean Velocity 161.8 cm/s TR Mean Gradient 10.8 mmHg TR Velocity Time Integral 58.6 cm TV Peak E Velocity 49.0 cm/s Right Atrial Pressure 3.0 mmHg Pulmonary Artery Systolic Pressu 18.1 mmHg PV Peak Velocity 115.0 cm/s RV Acceleration Time 0.1 s RV Ejection Time 0.3 s RV AcT/ET 0.3 FINDINGS Left Ventricle Normal left ventricular size and systolic function, EF 62 %. No regional wall motion abnormalities. Grade I/IV diastolic dysfunction (abnormal relaxation filling pattern), normal to mildly elevated filling pressures. Right Ventricle The right ventricle is normal in size and function. Right Atrium The right atrium is normal in size. Left Atrium Mildly increased left atrial size. Mitral Valve No gross abnormalities noted Aortic Valve No gross abnormalities noted Tricuspid Valve No gross abnormalities noted Pulmonic Valve Pulmonic valve not well visualized. Pericardium No pericardial effusion. Aorta Normal ascending aorta dimension. IVC Normal inferior vena cava. CONCLUSIONS Normal left ventricular size and systolic function, EF 62 %. No regional wall motion abnormalities. Grade I/IV diastolic dysfunction (abnormal relaxation filling pattern), normal to mildly elevated filling pressures. Possibly normal chamber sizes. No significant valvular lesions. There is no pericardial effusion. Technically somewhat difficult study because of the poor ultrasonic window. No similar previous studies are available for comparison Dr Ivis Drake MD [facility] (Electronically Signed) Final Date: 10 June 2022 14:14 S
--- NOTE | 2022-06-10 23:39 | US_ITS ---
WS: [id number] EXAMINATION: US abdomen lmt fluid [id number] REASON FOR EXAM: check for ascites COMPARISON: None available. ORDER DATE: 06/10/2022 7:34 AM TECHNIQUE: Four-quadrant abdominal ultrasound is performed for evaluation of ascites FINDINGS: There is no sign of ascites on the 4 quadrant study US/US abdomen lmt fluid [id number] IMPRESSION: No evidence of ascites.
[2022-06-10] MEDS: pantoprazole 40 mg SDV IVP (23:55)
[2022-06-11] VITALS (56 sets, daily range): BP systolic 98–180; BP diastolic 46–96; PULSE 69–99; RESP 14–35; TEMP 37.1; O2SAT 86–96; BMI 35.5
[2022-06-11] MEDS: morphine 4 mg/mL SDV 1 mL IVP (02:54)
[2022-06-11] MEDS: ipratropium-albuterol 3 mL Neb INHALATION (03:11)
[2022-06-11 03:25] LABS: Basophils % 0.4 %; Eosinophils # 0.1 10^3/uL (0.0-0.8); Eosinophils % 1.9 %; Hemoglobin 13.4 g/dL (11.5-15.3); Lymphocytes # 1.1 10^3/uL (0.8-4.8); Lymphocytes % 20.5 %; Mean Corpuscular HGB Conc 31.9 g/dL (30.0-36.0); Mean Corpuscular Hemoglobin 33.4 pg (28.0-34.0); Mean Corpuscular Volume 104.7 fl (81-99); Mean Platelet Volume 9.5 fL (7.4-10.4); Monocytes # 0.4 10^3/uL (0.2-0.9); Neutrophils # 3.58 10^3/uL (1.8-7.7); Neutrophils % 68.6 %; Nucleated Red Blood Cells % 0 %; Platelet Count 119 10^3/cmm (130-400); Red Blood Count 4.01 10^6/uL (4.1-5.3); Red Cell Distribution Width 13.3 % (12.1-15.1); White Blood Count 5.2 10^3/uL (4.0-10.0)
[2022-06-11 03:49] LABS: Alanine Aminotransferase 22 U/L (0-33); Albumin Level 3.4 g/dL (3.5-5.2); Alkaline Phosphatase 90 U/L (35-105); Anion Gap 12.8 (5-19); Aspartate Amino Transferase 13 U/L (0-32); Blood Urea Nitrogen 17 mg/dL (6-20); Carbon Dioxide 31 mmol/L (22-29); Chloride 105 mmol/L (98-107); Globulin 2.7 g/dL (1.3-4.6); Glomerular Filtration Rate 86.6 mL/min (90-130); Glucose 144 mg/dL (65-115); Osmolality Calculated 304 mOsm/kg (285-295); Potassium 3.8 mmol/L (3.5-5.1); Sodium 145 mmol/L (136-145); Total Bilirubin 0.4 mg/dL (0.15-1.2); Total Protein 6.1 g/dL (6.6-8.7)
[2022-06-11] MEDS: aspirin 81 mg EC Tablet PO (05:15)
[2022-06-11] MEDS: ARIPiprazole 10 mg Tablet 30 MG PO (05:15)
[2022-06-11] MEDS: HYDROcodone-acetaminophen 7.5-325 mg Tablet 1 TAB PO ×2 (05:15→09:17)
[2022-06-11] MEDS: buPROPion XL (24 HR) 150 mg Tablet 450 MG PO (05:16)
[2022-06-11] MEDS: fluoxetine 20 mg Capsule PO (05:16)
[2022-06-11] MEDS: clopidogrel 75 mg Tablet PO (05:16)
[2022-06-11] MEDS: hydroCHLOROthiazide 25 mg Tablet PO (05:17)
[2022-06-11] MEDS: guaiFENesin 600 mg Tablet PO (08:36)
[2022-06-11] MEDS: lisinopril 20 mg Tablet 40 MG PO (08:36)
[2022-06-11] MEDS: carvedilol 25 mg Tablet PO (08:37)
[2022-06-11] MEDS: FUROsemide 40 mg Tablet PO (08:37)
--- NOTE | 2022-06-11 09:00 | PM.PN ---
Subjective Subjective: Patient had the cardiac relative vision yesterday. She was found to have moderate stenosis in the ostium of the circumflex artery. It was opted to treat her medically. Has been is remaining stable with no recurrence of chest pain. No new symptoms. Medications: Medication Review Details: Current Medications Acetaminophen (Acetaminophen 325 Mg Tablet) 650 mg PO Q6H PRN PRN Reason: Mild/Mod Pain Or Temp >/= 101 Hydrocodone Bitart/Acetaminophen (Hydrocodone-Acetaminophen 7.5-325 Mg Tablet) 1 tab PO Q4H PRN PRN Reason: Pain Last Admin: 06/11/22 05:15 Dose: 1 tab Albuterol/Ipratropium (Ipratropium-Albuterol 3 Ml Neb) 3 ml INHALATION Q6H PRN PRN Reason: SHORTNESS OF BREATH Last Admin: 06/11/22 03:11 Dose: 3 ml Albuterol/Ipratropium (Ipratropium-Albuterol 3 Ml Neb) 3 ml INHALATION QID.RESPIRATORY PENDING SALE TO [facility] Last Admin: 06/11/22 08:40 Dose: Not Given Aripipraz[facility] ([facility] 10 Mg Tablet) [facility] Last Admin: 06/11/22 05:15 Dose: 30 mg Aspirin (Aspirin 81 Mg Ec Tablet) [facility] [place] Last Admin: 06/11/22 05:15 Dose: 81 mg Atorvastatin Calcium (Atorvastatin 40 Mg Tablet) 40 mg PO BEDTIME PENDING SALE TO [facility] Last Admin: 06/10/22 20:14 Dose: 40 mg Bupropion HCl (Bupropion Xl (24 Hr) 150 Mg Tablet) 450 mg PO [facility] Last Admin: 06/11/22 05:16 Dose: 450 mg Carvedilol (Carvedilol 25 Mg Tablet) 25 mg PO BID [facility]END[facility] TO [facility] Last Admin: 06/11/22 08:37 Dose: 25 mg Clopidogrel Bisulfate (Clopidogrel 75 Mg Tablet) [facility] [place] Last Admin: 06/11/22 05:16 Dose: 75 mg Fluoxetine HCl (Fluoxetine 20 Mg Capsule) [facility] [place] Last Admin: 06/11/22 05:16 Dose: 20 mg Furosemide (Furosemide 40 Mg Tablet) 40 mg PO DAILY@0800 [facility] Last Admin: 06/11/22 08:37 Dose: 40 mg Guaifenesin (Guaifenesin 600 Mg Tablet) 600 mg PO BID [facility]END[facility] Last Admin: 06/11/22 08:36 Dose: 600 mg Hydrochlorothiazide (Hydrochlorothiazide 25 Mg Tablet) 25 mg PO QAM [facility]END[facility] S[facility] TO [facility] Last Admin: 06/11/22 05:17 Dose: 25 mg Hydroxyzine Pamoate (Hydroxyzine 25 Mg Capsule) 25 mg PO QID PRN PRN Reason: Anxiety Lisinopril (Lisinopril 20 Mg Tablet) 40 mg PO BID [facility] Last Admin: 06/11/22 08:36 Dose: 40 mg Morphine Sulfate (Morphine 4 Mg/Ml Sdv 1 Ml) 4 mg IVP Q4H PRN PRN Reason: SEVERE PAIN Last Admin: 06/11/22 02:54 Dose: 4 mg Ondansetron HCl (Ondansetron 2 Mg/Ml Sdv 2 Ml) 4 mg IVP Q8H PRN PRN Reason: vomiting, or N/V if npo Last Admin: 06/10/22 05:51 Dose: 4 mg Pantoprazole Sodium (Pantoprazole 40 Mg Sdv) 40 mg IVP Q24H PENDING SALE TO [facility] Last Admin: 06/10/22 23:55 Dose: 40 mg Vitals/I&O/Wt Last Vital Signs Temp 98.8 F 06/11/22 04:00 Pulse 73 06/11/22 08:45 Resp 19 H 06/11/22 08:45 BP 131/56 06/11/22 08:45 Pulse Ox 92 06/11/22 08:45 O2 Del Method 06/11/22 08:41 O2 Flow Rate 2 06/11/22 08:41 06/10/22 06/11/22 06/11/22 22:59 06:59 14:59 Intake Total 300 / 480 586 / 1066 240 / 240 Output Total 700 / 1750 320 / 2070 Balance -400 / -1270 266 / -1004 240 / 240 Weight last 48 hrs Weight 207 lb Weight 192 lb Weight 192 lb Weight 192 lb Physical Exam Narrative: GENERAL: The patient is alert and oriented times three. Not in any acute distress. HEENT: No significant pallor, icterus or lymphadenopathy.Oral cavity: There are no mucous membrane lesions. NECK: Trachea appears to be central. No masses noted. No JVD or thyromegaly appreciated. RESPIRATORY: Chest is symmetrical. No intercostals muscle retraction or any accessory muscle activation. There is no chest wall tenderness. Breath sounds are heard bilaterally. No rales or rhonchi heard. No evidence of any consolidation. BREASTS: Deferred. HEART: The heart sounds are normal. No S3 or S4. No significant murmurs. No pericardial rub ABDOMEN: No vessel pulsations or distention. No tenderness. No organomegaly appreciated. Bowel sounds are normally heard. : Deferred. RECTAL: Deferred. LYMPHATIC: No lymphadenopathy noted in the neck. EXTREMITIES: The radial arterial puncture site has no hematoma bleeding. MUSCULOSKELETAL: No acute joint deformities or swelling SKIN: There are no significant rashes or ecchymosis NEUROPSYCHIATRIC: The patient is alert and oriented x3. Appears to be in a good mood. No tremors or rigidity noted. Data 06/11/22 02:28 06/11/22 02:28 Other Labs: Laboratory Last Values WBC 5.2 10^3/uL (4.0-10.0) 06/11/22 02:28 RBC 4.01 10^6/uL (4.1-5.3) L 06/11/22 02:28 Hgb 13.4 g/dL (11.5-15.3) 06/11/22 02:28 Hct 42.0 % (37.0-47.0) 06/11/22 02:28 MCV 104.7 fl (81-99) H 06/11/22 02:28 MCH 33.4 pg (28.0-34.0) 06/11/22 02:28 MCHC 31.9 g/dL (30.0-36.0) 06/11/22 02:28 RDW 13.3 % (12.1-15.1) 06/11/22 02:28 Plt Count 119 10^3/cmm (130-400) L 06/11/22 02:28 MPV 9.5 fL (7.4-10.4) 06/11/22 02:28 Neut % (Auto) 68.6 % 06/11/22 02:28 Lymph % (Auto) 20.5 % 06/11/22 02:28 [place] % (Auto) 8.0 % 06/11/22 02:28 Eos % (Auto) 1.9 % 06/11/22 02:28 Baso % (Auto) 0.4 % 06/11/22 02:28 Neut # (Auto) 3.58 10^3/uL (1.8-7.7) 06/11/22 02:28 Lymph # (Auto) 1.1 10^3/uL (0.8-4.8) 06/11/22 02:28 [place] # (Auto) 0.4 10^3/uL (0.2-0.9) 06/11/22 02:28 Eos # (Auto) 0.1 10^3/uL (0.0-0.8) 06/11/22 02:28 Baso # (Auto) 0.0 10^3/uL (0.0-0.1) 06/11/22 02:28 Nucleated RBC % (auto) 0 % 06/11/22 02:28 Nucleated RBCs # 0.0 /100WBC 06/11/22 02:28 PT 13.70 SECONDS (12.1-14.9) 06/10/22 00:41 INR 1.02 (0.8-1.2) 06/10/22 00:41 APTT 31.3 SECONDS (23.9-36.7) 06/10/22 16:12 D-Dimer 0.44 ug/mIFEU (0-0.59) 06/09/22 19:45 Sodium 145 mmol/L (136-145) 06/11/22 02:28 Potassium 3.8 mmol/L (3.5-5.1) 06/11/22 02:28 Chloride 105 mmol/L (98-107) 06/11/22 02:28 Carbon Dioxide 31 mmol/L (22-29) H 06/11/22 02:28 Anion Gap 12.8 (5-19) 06/11/22 02:28 BUN 17 mg/dL (6-20) 06/11/22 02:28 Creatinine 0.7 mg/dL (0.5-0.9) 06/11/22 02:28 GFR Calculation 86.6 mL/min (90-130) L 06/11/22 02:28 Glucose 144 mg/dL (65-115) H 06/11/22 02:28 Calculated Osmolality 304 mOsm/kg (285-295) H 06/11/22 02:28 Calcium 9.0 mg/dL (8.5-10.5) 06/11/22 02:28 Magnesium 2.0 mg/dL (1.7-2.3) 06/10/22 00:41 Total Bilirubin 0.4 mg/dL (0.15-1.2) 06/11/22 02:28 AST 13 U/L (0-32) 06/11/22 02:28 ALT 22 U/L (0-33) 06/11/22 02:28 Alkaline Phosphatase 90 U/L (35-105) 06/11/22 02:28 Troponin T Baseline 16 ng/L (0-10) H 06/09/22 19:45 Troponin T 120 Minute 16.57 ng/L (0-10) H 06/09/22 21:35 Delta Troponin T 0.57 ABS# (0-10) 06/09/22 21:35 Troponin T Hi Sens 6Hr 17.09 ng/L (0-10) H 06/10/22 00:41 Troponin T Hi Sens 6Hr Delta 1.09 ng/L (0-12) 06/10/22 00:41 Total Protein 6.1 g/dL (6.6-8.7) L 06/11/22 02:28 Albumin 3.4 g/dL (3.5-5.2) L 06/11/22 02:28 Globulin 2.7 g/dL (1.3-4.6) 06/11/22 02:28 A&P Assessment and plan (1) Atherosclerotic heart disease of [place] coronary artery with unstable angina pectoris: The patient had a cardiac catheterization yesterday. Was found to have moderate disease in the ostium of the circumflex artery. The FFR on this lesion was 0.91. It was decided to optimize medical treatment. (2) Hypertension: Since her blood pressure is currently seems to be in the normal range. May continue on the current medication. (3) COPD (chronic obstructive pulmonary disease): May continue on the current measures. (4) Smoking addiction: Patient is strongly advised to quit smoking. (5) Dyslipidemia: We will continue on the current medications. Plan Since the patient is remaining stable, she may be discharged home from a cardiac standpoint. [facility] week by the nurse practitioner. I will see her in the office in 1 month. Attestations Medical Necessity Statement*: Possible discharge home today Coding Level of Care Code 46571 Diagnoses Atherosclerotic heart disease of [place] coronary artery with unstable angina pectoris I25.110 Hypertension I10 COPD (chronic obstructive pulmonary disease) J44.9 Smoking addiction F17.200 Dyslipidemia E78.5
[2022-06-11] MEDS: isosorbide mononitrate ER 30 mg Tablet PO (09:18)
--- NOTE | 2022-06-11 10:43 | PC.CHAP ---
Pastoral Care Encounter/Spiritual Assessment Type of Contact [] Declined regional sales engineer visit [] Patient/Family/Request visit [] Outpatient visit [] Follow-up visit [] Physician referral [] Code/Alert [x] Routine visit [] Staff referral [] Actively dying [] Patient sleeping [] Family support [] [] Out of room [] Palliative care [] [] Receiving care in room [] Pre-surgical visit [] Trauma [] Long length of stay [x] ICU visit [x] Other: PT not receptive to people.. prayed outside room Relational/Emotional Strength [] Patient feels connected with others/family/visitors/staff [] Distress [] Loneliness/isolation [] Abandonment Spirituality of Patient [] Person of Nicole [] Attends Mandaeism of their Nicole [] Believes in Prayer [] Reads Bible or Presybeterian materials [] There are Spiritual issues to be addressed Web Application Dev Specialist Interventions [x] Prayer [] Active listening [] Non-anxious presence [] Spiritual/emotional support [] Crisis/trauma care [] Spiritual counseling [] Bereavement support [] Provided bereavement packet [] Provided Bible/devotional materials [] Provided toy/stuffed animal, coloring book to patient or family member [] Provided Communion [] Anointing/[place] [] Salvation [x] Completed spiritual assessment [] Other: Impact on Illness or Injury [] Angry [] Fearful [] Anxious [] Often cries [] Exhaustion [] Unable to work [] Unable to attend islam [] Unable to walk/stand [] Unable to read [] Unable to drive [] Unable to eat/drink [] Unable to sleep [] Unable to be with family [] Patient intubated [] Other: Summary Time spent with patient
--- NOTE | 2022-06-11 11:43 | P.DS_ITS ---
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: Status: Acute (2) Hypertension: Status: Acute (3) COPD (chronic obstructive pulmonary disease): Status: Acute (4) Smoking addiction: Status: Acute (5) Dyslipidemia: Status: Acute Reason for Visit Reason for Visit: Chest Pains Hospital Course Hospital Course Le Barnhart is a 56 year old female with a history of coronary disease, HTN, history of hemochromatosis and liver cirrhosis, will be establishing with hematology here in town, CAD, stenting x5, history of nocturnal hypoxia, status post multiple PCI's, is presenting with complaints of chest pain.?In ER on presentation hypertensive, systolic blood pressures in 200s.? Received morphine, Zofran with partial improvement in blood pressure to 150s-160s. She was evaluated by cardiology and started on ACS protocol. Due to ongoing chest pain she underwent cardiac cath on 06/10. please see detailed report. Her stents were patent. Echo showed Normal left ventricular size and systolic function, EF 62 %. No?regional wall motion abnormalities. Grade I/IV diastolic dysfunction. ? Imdur was rectal her medication regimen. She denies any chest pain today. Feeling improved. She is being discharged today in stable condition. Physical Exam Narrative: General: No acute distress, AO x3 HEENT: PERRLA, pupils bilaterally equal and reactive, pallors not present Chest: Normal vesicular breath sounds, no added sounds, equal good air entry bilaterally CVS: S1-S2 regular, no murmurs, no tachycardia, no gallops, no rubs Abdomen: Soft, nontender, no organomegaly, bowel sounds present Neuro: No focal deficits, no facial deformity, AO x3, power 5/5 in all limbs Discharge Data Studies Completed and Pending Completed Studies During Hospitalization Category Date Time Status CTA chest [CT angio chest [id number]] Stat Cat Scan 06/09/22 22:51 Completed XR chest 1V portable [id number] Stat Exams 06/09/22 19:09 Completed CV. 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 Chest CTA 06/09/22 22:51 IMPRESSION: 1. Severe calcified coronary artery disease. 2. Mild nonspecific ground-glass opacities in the dependent portions of the upper lobes and lower lobes suggesting possible hydrostatic edema. 3. No pulmonary embolus or aortic dissection. Abdomen Ultrasound 06/10/22 23:39 IMPRESSION: No evidence of ascites. Laboratory Results WBC 5.2 10^3/uL (4.0-10.0) 06/11/22 02:28 RBC 4.01 10^6/uL (4.1-5.3) L 06/11/22 02:28 Hgb 13.4 g/dL (11.5-15.3) 06/11/22 02:28 Hct 42.0 % (37.0-47.0) 06/11/22 02:28 MCV 104.7 fl (81-99) H 06/11/22 02:28 MCH 33.4 pg (28.0-34.0) 06/11/22 02:28 MCHC 31.9 g/dL (30.0-36.0) 06/11/22 02:28 RDW 13.3 % (12.1-15.1) 06/11/22 02:28 Plt Count 119 10^3/cmm (130-400) L 06/11/22 02:28 MPV 9.5 fL (7.4-10.4) 06/11/22 02:28 Neut % (Auto) 68.6 % 06/11/22 02:28 Lymph % (Auto) 20.5 % 06/11/22 02:28 [place] % (Auto) 8.0 % 06/11/22 02:28 Eos % (Auto) 1.9 % 06/11/22 02:28 Baso % (Auto) 0.4 % 06/11/22 02:28 Neut # (Auto) 3.58 10^3/uL (1.8-7.7) 06/11/22 02:28 Lymph # (Auto) 1.1 10^3/uL (0.8-4.8) 06/11/22 02:28 [place] # (Auto) 0.4 10^3/uL (0.2-0.9) 06/11/22 02:28 Eos # (Auto) 0.1 10^3/uL (0.0-0.8) 06/11/22 02:28 Baso # (Auto) 0.0 10^3/uL (0.0-0.1) 06/11/22 02:28 Nucleated RBC % (auto) 0 % 06/11/22 02:28 Nucleated RBCs # 0.0 /100WBC 06/11/22 02:28 PT 13.70 SECONDS (12.1-14.9) 06/10/22 00:41 INR 1.02 (0.8-1.2) 06/10/22 00:41 APTT 31.3 SECONDS (23.9-36.7) 06/10/22 16:12 D-Dimer 0.44 ug/mIFEU (0-0.59) 06/09/22 19:45 Sodium 145 mmol/L (136-145) 06/11/22 02:28 Potassium 3.8 mmol/L (3.5-5.1) 06/11/22 02:28 Chloride 105 mmol/L (98-107) 06/11/22 02:28 Carbon Dioxide 31 mmol/L (22-29) H 06/11/22 02:28 Anion Gap 12.8 (5-19) 06/11/22 02:28 BUN 17 mg/dL (6-20) 06/11/22 02:28 Creatinine 0.7 mg/dL (0.5-0.9) 06/11/22 02:28 GFR Calculation 86.6 mL/min (90-130) L 06/11/22 02:28 Glucose 144 mg/dL (65-115) H 06/11/22 02:28 Calculated Osmolality 304 mOsm/kg (285-295) H 06/11/22 02:28 Calcium 9.0 mg/dL (8.5-10.5) 06/11/22 02:28 Magnesium 2.0 mg/dL (1.7-2.3) 06/10/22 00:41 Total Bilirubin 0.4 mg/dL (0.15-1.2) 06/11/22 02:28 AST 13 U/L (0-32) 06/11/22 02:28 ALT 22 U/L (0-33) 06/11/22 02:28 Alkaline Phosphatase 90 U/L (35-105) 06/11/22 02:28 Troponin T Baseline 16 ng/L (0-10) H 06/09/22 19:45 Troponin T 120 Minute 16.57 ng/L (0-10) H 06/09/22 21:35 Delta Troponin T 0.57 ABS# (0-10) 06/09/22 21:35 Troponin T Hi Sens 6Hr 17.09 ng/L (0-10) H 06/10/22 00:41 Troponin T Hi Sens 6Hr Delta 1.09 ng/L (0-12) 06/10/22 00:41 Total Protein 6.1 g/dL (6.6-8.7) L 06/11/22 02:28 Albumin 3.4 g/dL (3.5-5.2) L 06/11/22 02:28 Globulin 2.7 g/dL (1.3-4.6) 06/11/22 02:28 Vitals Last Vital Signs Temp 98.8 F 06/11/22 04:00 Pulse 69 06/11/22 11:26 Resp 18 06/11/22 11:26 BP 144/62 06/11/22 10:45 Pulse Ox 93 06/11/22 11:26 O2 Del Method 06/11/22 11:26 O2 Flow Rate 2 06/11/22 11:26 Discharge Plan Discharge Patient Disposition: Home Condition: Stable Prescriptions: New atorvastatin 40 mg Tablet 40 mg PO BEDTIME 30 Days Qty: 30 0RF isosorbide mononitrate 30 mg Tablet Extended Release 24 Hr 30 mg PO DAILY 30 Days Qty: 30 0RF Protonix 40 mg tablet,delayed release (DR/EC) 40 mg PO DAILY 28 Days Qty: 30 0RF Continued clopidogrel [Plavix] 75 mg tablet 75 mg PO QAM (DME) night splint See Rx Instructions .Route .MEDSUPPLY Qty: 1 0RF Rx Instructions: As directed (DME) CAM boot See Rx Instructions .Route .MEDSUPPLY Qty: 1 0RF Rx Instructions: As directed (DME) Crutches See Rx Instructions .Route .MEDSUPPLY Qty: 1 0RF Rx Instructions: As directed to H.O.M.E (DME) Crutches See Rx Instructions .Route .MEDSUPPLY Qty: 1 0RF Rx Instructions: As directed HOME hydrocodone-acetaminophen 7.5-325 mg tablet 1 tab PO Q4H PRN (Reason: Pain) fluticasone propion-salmeterol [Advair Diskus] 500-50 mcg/dose blister with device 1 inh INHALATION BID lisinopril 40 mg tablet 40 mg PO BID fluoxetine 20 mg capsule 20 mg PO QAM bupropion HCl 450 mg tablet extended release 24 hr 450 mg PO QAM albuterol sulfate 2.5 mg /3 mL (0.083 %) solution for nebulization 2.5 mg inhalation Q4H PRN (Reason: Shortness Of Breath) aspirin 81 mg Tablet,Delayed Release (Dr/Ec) 81 mg PO QAM bumetanide 1 mg tablet 1 mg PO QAM hydroxyzine HCl 25 mg tablet 25 - 50 mg PO QID PRN (Reason: Anxiety) hydrochlorothiazide 25 mg tablet 25 mg PO QAM Ventolin HFA 90 mcg/actuation HFA aerosol inhaler 2 puff INHALATION QID PRN (Reason: Shortness Of Breath) aripiprazole 30 mg tablet 30 mg PO QAM Changed carvedilol 25 mg tablet 25 mg PO BID 30 Days Qty: 60 0RF Rx Instructions: must administer with a meal/food Discontinued ibuprofen 800 mg tablet 800 mg PO Q8H PRN (Reason: Pain) Discharge Orders: Discharge Order (Routine); Ordered 06/11/22 Ordered By: Pam Wiggins Referrals: Ivis Drake MD [Physician] - 1 month Yoselyn Woods FNP [Nurse Practitioner] - 2 weeks (June 25, 2022 at time of 10:45 am ,Yoselyn Woods APN nurse after this visit ,will schedule follow up with ) Ryann Burk [Primary Care Provider] - 2 weeks (Thursday at time of 1:00 pm ) Discharge Diet: Usual diet Discharge Activity: Resume usual activity Patient Instructions: Isosorbide Mononitrate (By mouth), Atorvastatin (By mouth), Pantoprazole (By mouth) (Protonix), Angina (ED), Coronary Artery Disease (DC), Chest Pain (DC), COPD Stoplight, Chest Pain Stoplight, Opioid Safety Discharge Attestations Time Spent in Discharge Care*: other Quality Metrics Clinical Quality Measures [ No reported AMI, CVA or VTE this stay] Coding Level of Care Code Acute Code for g Fwd Diagnoses 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
--- NOTE | 2022-06-11 13:28 | PC.NURSE ---
patient received discharge orders. all IV removed. patient prescriptions sent to pharmacy. all discharge orders and instructions given to patient. Patient verbalized understanding. patient exited facility via wheelchair to main entrance.
== END 2022-06-11 13:08 | disposition home or self-care (01) | DRG 287 ==
LOC: ER 22:15 → ICU 22:43
PROVIDERS: Internal Medicine; Internal Medicine Cardiovascular Disease; Admitting Provider Internal Medicine; Emergency Provider Emergency Medicine; PCP Family Medicine; Visit Provider Student in an Organized Health Care Education/Training Program
PROC: B2111ZZ Fluoroscopy of Multiple Coronary Arteries using Low Osmolar Contrast (ICD-10-PCS; principal; 2022-06-10 09:00)
PROC: 4A033BC Measurement of Arterial Pressure, Coronary, Percutaneous Approach (ICD-10-PCS; 2022-06-10 09:00)
DX: I25.110 Atherosclerotic heart disease of native coronary artery with unstable angina pectoris (principal); I10 Essential (primary) hypertension; J44.9 Chronic obstructive pulmonary disease, unspecified; F17.210 Nicotine dependence, cigarettes, uncomplicated; E78.5 Hyperlipidemia, unspecified; E83.119 Hemochromatosis, unspecified; K74.60 Unspecified cirrhosis of liver; E87.6 Hypokalemia; R60.0 Localized edema; R14.0 Abdominal distension (gaseous); R94.31 Abnormal electrocardiogram [ECG] [EKG]; G47.34 Idiopathic sleep related nonobstructive alveolar hypoventilation; E66.9 Obesity, unspecified; Z68.35 Body mass index [BMI] 35.0-35.9, adult; Z95.5 Presence of coronary angioplasty implant and graft; Z79.02 Long term (current) use of antithrombotics/antiplatelets; Z79.891 Long term (current) use of opiate analgesic; Z79.1 Long term (current) use of non-steroidal anti-inflammatories (NSAID); Z92.21 Personal history of antineoplastic chemotherapy; Z92.3 Personal history of irradiation
CPT/HCPCS: 36415; 71045; 71275; 76705; 80053; 83735; 84484; 85025; 85378; 85610; 85730; 93005; 93306; 93458; 93571; 94640; 96372; 96374; 96375; 96376; 99152; 99153; 99285; C1769; C1887; C1894; C9113; J0153; J1644; J1650; J2250; J2270; J2405; J3010; J3490; J7030; Q9967

== ENCOUNTER 2022-06-14 05:39 | Emergency (ER) | payer MEDICAID, SELFPAY ==
[2022-06-14] VITALS (9 sets, daily range): BP systolic 143–180; BP diastolic 50–98; PULSE 68–77; RESP 16–30; TEMP 36.3; O2SAT 94–97
--- NOTE | 2022-06-14 06:06 | XRR_ITS ---
PROCEDURE INFORMATION: Exam: XR Chest Exam date and time: 06/14/2022 6:34 AM Age: 56 years old Clinical indication: Shortness of breath; Additional info: SOB TECHNIQUE: Imaging protocol: Radiologic exam of the chest. Views: 1 view. COMPARISON: CR (CHEST, ) 06/09/2022 7:16 PM FINDINGS: Lungs: Unremarkable. No consolidation. Pleural spaces: Unremarkable. No pleural effusion. No pneumothorax. Heart/Mediastinum: Unremarkable. No cardiomegaly. Bones/joints: Unremarkable. XR/XR chest 1V portable [id number] IMPRESSION: No acute findings.
--- NOTE | 2022-06-14 06:29 | ECG_ITS ---
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 Measurements Intervals [place] Rate: 73 P: 66 [place]: 169 QRS: 82 QRSD: 82 T: 8 QT: 374 QTc: 414 Interpretive Statements SINUS RHYTHM NONSPECIFIC T-WAVE ABNORMALITY Compared to ECG 06/10/2022 01:48:11 T-wave abnormality now present ST (T wave) deviation no longer present Myocardial infarct finding no longer present Electronically Signed On 06-14-2022 15:24:16 CDT by David Escalante M.D. [email or web address] coast [email or web address] care systemiSocceravita [facility].Opternative/store/OM/[id number]
[2022-06-14 06:31] LABS: Basophils # 0.1 10^3/uL (0.0-0.1); Basophils % 0.8 %; Eosinophils # 0.2 10^3/uL (0.0-0.8); Eosinophils % 2.3 %; Hematocrit 43.5 % (37.0-47.0); Hemoglobin 14.5 g/dL (11.5-15.3); Lymphocytes # 1.3 10^3/uL (0.8-4.8); Lymphocytes % 20.6 %; Mean Corpuscular HGB Conc 33.3 g/dL (30.0-36.0); Mean Corpuscular Hemoglobin 33.5 pg (28.0-34.0); Mean Corpuscular Volume 100.5 fl (81-99); Mean Platelet Volume 9.5 fL (7.4-10.4); Monocytes # 0.6 10^3/uL (0.2-0.9); Monocytes % 9.1 %; Neutrophils # 4.31 10^3/uL (1.8-7.7); Neutrophils % 66.3 %; Nucleated Red Blood Cells % 0 %; Platelet Count 150 10^3/cmm (130-400); Red Blood Count 4.33 10^6/uL (4.1-5.3); Red Cell Distribution Width 13.1 % (12.1-15.1); White Blood Count 6.5 10^3/uL (4.0-10.0)
[2022-06-14 06:53] LABS: Troponin(5th) Baseline 20 ng/L (0-10)
[2022-06-14 07:00] LABS: Alanine Aminotransferase 25 U/L (0-33); Albumin Level 3.8 g/dL (3.5-5.2); Alkaline Phosphatase 96 U/L (35-105); Anion Gap 12.7 (5-19); Aspartate Amino Transferase 16 U/L (0-32); Blood Urea Nitrogen 18 mg/dL (6-20); Calcium 9.2 mg/dL (8.5-10.5); Carbon Dioxide 26 mmol/L (22-29); Chloride 105 mmol/L (98-107); Creatinine Clr Calc Pharmacy 81.1664; Glomerular Filtration Rate 74.2 mL/min (90-130); Glucose 123 mg/dL (65-115); NT Pro B Type Natriuretic Pept 642 pg/mL (0-125); Osmolality Calculated 293 mOsm/kg (285-295); Potassium 3.7 mmol/L (3.5-5.1); Sodium 140 mmol/L (136-145); Total Bilirubin 0.3 mg/dL (0.15-1.2); Total Protein 6.8 g/dL (6.6-8.7)
--- NOTE | 2022-06-14 07:14 | ED_ITS ---
HPI - SOB/Dyspnea General: Chief Complaint: Shortness of Breath/Dyspnea Stated Complaint: SOB Time Seen by Provider: 06/14/22 05:47 Source: patient Mode of arrival: ambulatory History of Present Illness: HPI Narrative: 56-year-old female presents emergency room complaining of short of breath. Patient was lying in bed woke up states she felt extremely short of breath. No fever sweats chills no productive cough she denies chest pain. Patient states she quit smoking 5 days ago. No other upper respiratory symptoms no vomiting or diarrhea no respiratory distress time I seen the patient. MD elicited complaint: shortness of breath and cough Pertinent past history: COPD Onset (ago): hour(s) Timing: intermittent Severity: mild Exacerbating factors: exertion and coughing Relieving factors: rest Known history of: COPD Associated symptoms: Deny abdominal pain, chest congestion, chest pain, cough, diaphoresis, dizziness, extremity pain, fever(s), hemoptysis, lightheadedness, myalgias, nausea, orthopnea, palpitations, paresthesias, polydipsia, polyuria, rash, sense of impending doom, syncope or vomiting Review of Systems Const: Denies: fever(s) or diaphoresis ENMT: Denies: throat pain, ear or mastoid pain, nasal discharge or nasal congestion Card: Denies: chest pain, palpitations, lightheadedness, syncope or orthopnea Resp: Denies: hemoptysis or chest congestion GI: Denies: abdominal pain, nausea or vomiting : Denies: flank pain, difficulty voiding, dysuria, urinary frequency or urinary urgency Musc: Denies: extremity pain Skin/Breast: Denies: rash or pruritus Neuro: Denies: dizziness Endo: Denies: polyuria or polydipsia PFSH ED PFSH: Medical History CAD (coronary artery disease) Cirrhosis COPD (chronic obstructive pulmonary disease) Hemochromatosis Hypertension Nocturnal hypoxia NSAID long-term use Smoking addiction Status post chemoradiation Vaginal tumors Surgical History H/O vaginal surgery Family History Denies family history of Colon cancer Ovarian cancer Diabetes Heart disease Hypercholesteremia Breast cancer Hypertension Uterine cancer Thyroid disease Stroke Social History Smoking and tobacco status: current every day smoker cigarettes [ Other cigarette details: cut down to 0.5 ppd] Alcohol intake: never Lives independently: Yes Household members: significant other Marital status: Single Physical Exam Const: GENERAL APPEARANCE: cooperative and comfortable ORIENTATION/CONSCIOUSNESS: Yes awake, Yes oriented to person, Yes oriented to place and Yes oriented to time HENMT: COMMON NORMALS: normocephalic, atraumatic and hearing grossly normal bilaterally HEAD & SCALP: normocephalic and atraumatic Resp: COMMON NORMALS: normal respiratory effort, No retractions and No use of accessory muscles AUSCULTATION: wheezes (Scant bilateral wheezes) Cardio: COMMON NORMALS: regular rate, regular rhythm and No murmurs present (Cardio) RATE: regular rate RHYTHM: regular rhythm GI: COMMON NORMALS: Soft to palpation and No hepatosplenomegaly present AUSCULTATION: Yes normoactive bowel sounds PALPATION: Yes Soft to palpation, No Tenderness to palpation present (GI), No Guarding due to palpation present (GI) and Yes No hepatosplenomegaly present Extremity: COMMON NORMALS: normal to inspection, capillary refill normal, no clubbing, cyanosis or edema, no calf tenderness and no pedal edema Neuro: SENSORIUM/ORIENTATION: Yes oriented to person, Yes oriented to place and Yes oriented to time Skin: COMMON NORMALS: no rashes or lesions noted GENERAL SKIN EXAM: no rashes or lesions noted Course Vital Signs: Vital signs: Vital Signs Temperature 97.4 F L 06/14/22 05:50 Pulse Rate 71 06/14/22 10:20 Respiratory Rate 24 H 06/14/22 10:20 Blood Pressure 143/50 06/14/22 10:20 Pulse Oximetry 94 06/14/22 10:20 Oxygen Delivery Me thod 06/14/22 10:00 MDM - SOB/Dyspnea Medical Decision Making Labs imaging and EKG reviewed. No acute EKG changes cardiac enzymes are negative. She does not appear to be in heart failure there is no pneumothorax pneumonia or widening mediastinum she does not have any hypoxia or tachycardia no evidence of pulmonary emboli. Suspect this is exacerbation COPD I think she may have some underlying sleep apnea as well. We will put her on a prednisone taper however follow-up with her primary care doctor she probably should be e valuated for sleep apnea. Medical Records I reviewed the patient's medical records. Lab Data I reviewed the patient's lab results. 06/14/22 06:25 06/14/22 06:25 Labs/Radiology: Radiology Impressions Chest X-Ray 06/14/22 06:06 IMPRESSION: No acute findings. Laboratory Results WBC 6.5 10^3/uL (4.0-10.0) 06/14/22 06:25 RBC 4.33 10^6/uL (4.1-5.3) 06/14/22 06:25 Hgb 14.5 g/dL (11.5-15.3) 06/14/22 06:25 Hct 43.5 % (37.0-47.0) 06/14/22 06:25 MCV 100.5 fl (81-99) H 06/14/22 06:25 MCH 33.5 pg (28.0-34.0) 06/14/22 06:25 MCHC 33.3 g/dL (30.0-36.0) 06/14/22 06:25 RDW 13.1 % (12.1-15.1) 06/14/22 06:25 Plt Count 150 10^3/cmm (130-400) 06/14/22 06:25 MPV 9.5 fL (7.4-10.4) 06/14/22 06:25 Neut % (Auto) 66.3 % 06/14/22 06:25 Lymph % (Auto) 20.6 % 06/14/22 06:25 [place] % (Auto) 9.1 % 06/14/22 06:25 Eos % (Auto) 2.3 % 06/14/22 06:25 Baso % (Auto) 0.8 % 06/14/22 06:25 Neut # (Auto) 4.31 10^3/uL (1.8-7.7) 06/14/22 06:25 Lymph # (Auto) 1.3 10^3/uL (0.8-4.8) 06/14/22 06:25 [place] # (Auto) 0.6 10^3/uL (0.2-0.9) 06/14/22 06:25 Eos # (Auto) 0.2 10^3/uL (0.0-0.8) 06/14/22 06:25 Baso # (Auto) 0.1 10^3/uL (0.0-0.1) 06/14/22 06:25 Nucleated RBC % (auto) 0 % 06/14/22 06:25 Nucleated RBCs # 0.0 /100WBC 06/14/22 06:25 Sodium 140 mmol/L (136-145) 06/14/22 06:25 Potassium 3.7 mmol/L (3.5-5.1) 06/14/22 06:25 Chloride 105 mmol/L (98-107) 06/14/22 06:25 Carbon Dioxide 26 mmol/L (22-29) 06/14/22 06:25 Anion Gap 12.7 (5-19) 06/14/22 06:25 BUN 18 mg/dL (6-20) 06/14/22 06:25 Creatinine 0.8 mg/dL (0.5-0.9) 06/14/22 06:25 GFR Calculation 74.2 mL/min (90-130) L 06/14/22 06:25 Glucose 123 mg/dL (65-115) H 06/14/22 06:25 Calculated Osmolality 293 mOsm/kg (285-295) 06/14/22 06:25 Calcium 9.2 mg/dL (8.5-10.5) 06/14/22 06:25 Total Bilirubin 0.3 mg/dL (0.15-1.2) 06/14/22 06:25 AST 16 U/L (0-32) 06/14/22 06:25 ALT 25 U/L (0-33) 06/14/22 06:25 Alkaline Phosphatase 96 U/L (35-105) 06/14/22 06:25 Troponin T Baseline 20 ng/L (0-10) H 06/14/22 06:25 Troponin T 120 Minute 18.00 ng/L (0-10) H 06/14/22 08:25 Delta Troponin T -2.00 ABS# (0-10) L 06/14/22 08:25 NT-Pro-B Natriuret Pep 642 pg/mL (0-125) H 06/14/22 06:25 Total Protein 6.8 g/dL (6.6-8.7) 06/14/22 06:25 Albumin 3.8 g/dL (3.5-5.2) 06/14/22 06:25 Globulin 3.0 g/dL (1.3-4.6) 06/14/22 06:25 Discharge Plan Discharge Patient Disposition: Home Clinical Impression: Acute exacerbation of chronic obstructive airways disease Condition: Stable Prescriptions: New Medrol (Alessandro) 4 mg tablets,dose pack See Rx Instructions .ROUTE .COMPLEX Qty: 21 0RF Rx Instructions: orally per package directions albuterol sulfate 90 mcg/actuation HFA aerosol inhaler 2 inh INHALATION Q4H PRN (Reason: shortness of breath or wheezing) Qty: 18 0RF No Action clopidogrel [Plavix] 75 mg tablet 75 mg PO QAM (DME) night splint See Rx Instructions .Route .MEDSUPPLY Qty: 1 0RF Rx Instructions: As directed [place] See Rx Instructions .Route .MEDSUPPLY Qty: 1 0RF Rx Instructions: As directed [place] Crutches See Rx Instructions .Route .MEDSUPPLY Qty: 1 0RF Rx Instructions: As directed to H.O.M.E [place] Cr[place]ches See Rx Instructions .Route .MEDSUPPLY Qty: 1 0RF Rx Instructions: As directed HOME ibuprofen 800 mg tablet 800 mg PO TID PRN (Reason: Pain) meloxicam 15 mg tablet 15 mg PO DAILY hydrocodone-acetaminophen 7.5-325 mg tablet 1 tab PO Q4H PRN (Reason: Pain) fluticasone propion-salmeterol [Advair Diskus] 500-50 mcg/dose blister with device 1 inh INHALATION BID lisinopril 40 mg tablet 40 mg PO BID fluoxetine 20 mg capsule 20 mg PO QAM bupropion HCl 450 mg tablet extended release 24 hr 450 mg PO QAM albuterol sulfate 2.5 mg /3 mL (0.083 %) solution for nebulization 2.5 mg inhalation Q4H PRN (Reason: Shortness Of Breath) aspirin 81 mg Tablet,Delayed Release (Dr/Ec) 81 mg PO QAM bumetanide 1 mg tablet 1 mg PO QAM hydroxyzine HCl 25 mg tablet 25 - 50 mg PO QID PRN (Reason: Anxiety) hydrochlorothiazide 25 mg tablet 25 mg PO QAM albuterol sulfate [Ventolin HFA] 90 mcg/actuation HFA aerosol inhaler 2 puff INHALATION QID PRN (Reason: Shortness Of Breath) aripiprazole 30 mg tablet 30 mg PO QAM atorvastatin 40 mg Tablet 40 mg PO BEDTIME 30 Days Qty: 30 0RF isosorbide mononitrate 30 mg Tablet Extended Release 24 Hr 30 mg PO DAILY 30 Days Qty: 30 0RF pantoprazole [Protonix] 40 mg tablet,delayed release (DR/EC) 40 mg PO DAILY 28 Days Qty: 30 0RF carvedilol 25 mg tablet 25 mg PO BID 30 Days Qty: 60 0RF Rx Instructions: must administer with a meal/food Discharge Orders: Discharge ED (Routine); Ordered 06/14/22 Ordered By: Ernesto Still Referrals: Ryann Burk [Primary Care Provider] - Discharge Diet: Usual diet Discharge Activity: Increase activity as tolerated Patient Instructions: Opioid Safety, Pain Management Activity Restrictions/Additional Instructions: You are seen for complaint of shortness of breath. There is no sign of heart failure or pneumonia on your laboratory tests and chest x-ray. Your cardiac enzymes and EKGs did not show any acute changes. Suspect this is some mild exacerbation of your COPD will put you on a course steroid use your albuterol as needed. Suspect you also may have sleep apnea and recommend following up with your doctor for evaluation if it has not been done previously. Coding Level of Care Code ED Taper Printed Circuit Layout for Ann Machuca
[2022-06-14] MEDS: ipratropium-albuterol 3 mL Neb INHALATION (07:46)
--- NOTE | 2022-06-14 08:17 | ECG_ITS ---
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 Measurements Intervals [place] Rate: 69 P: -13 PA: 152 QRS: 62 QRSD: 83 T: 9 QT: 403 QTc: 434 Interpretive Statements SINUS RHYTHM MINIMAL VOLTAGE CRITERIA FOR LVH, CONSIDER NORMAL VARIANT [MEETS CRITERIA IN ONE OF: R(aVL), S(V1), R(V5), R(V5/V6)+S(V1)] NONSPECIFIC T-WAVE ABNORMALITY Compared to ECG 06/14/2022 06:29:07 No significant changes Electronically Signed On 06-14-2022 15:25:11 CDT by David Escalante M.D. [id number]
== END 2022-06-14 10:22 | disposition home or self-care (01) ==
PROVIDERS: Emergency Medicine; Emergency Provider Family Medicine; PCP Family Medicine
DX: J44.1 Chronic obstructive pulmonary disease with (acute) exacerbation (principal); I10 Essential (primary) hypertension; I25.10 Atherosclerotic heart disease of native coronary artery without angina pectoris; F17.210 Nicotine dependence, cigarettes, uncomplicated
CPT/HCPCS: 71045; 80053; 83880; 84484; 85025; 93005; 94640; 96374; 99285; J2930

== ENCOUNTER 2022-06-17 13:36 | Emergency (ER) | payer MEDICAID, SELFPAY ==
[2022-06-17] VITALS (19 sets, daily range): BP systolic 141–190; BP diastolic 73–118; PULSE 66–77; RESP 15–28; TEMP 36.9; O2SAT 92–97; BMI 33.7
--- NOTE | 2022-06-17 13:49 | ECG_ITS ---
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 Measurements Intervals [place] Rate: 71 P: 35 [place]: 162 QRS: 59 QRSD: 83 T: 4 QT: 376 QTc: 411 Interpretive Statements SINUS RHYTHM NONSPECIFIC ST & T-WAVE ABNORMALITY Compared to ECG 06/14/2022 08:17:14 No significant changes Electronically Signed On 06-18-2022 0:27:55 CDT by Ivis Drake M.D. [email or web address] [place] Companymagnolia regional health centerAxiomaticsmount st. mary hospitalJunction Solutions/store/OM/[id number]
--- NOTE | 2022-06-17 14:29 | PC.NURSE ---
pt reports dyspnea since yesterday. reports she was recently seen for same symptoms and was sent home. reports had a heart cath done through femoral access. denies chest pains but does report middle of back hurting. pt lungs clear bilat. bowel sounds present x4. skin pink/warm/dry
--- NOTE | 2022-06-17 15:23 | XR_ITS ---
WS: [id number] Exam: XR chest 1V portable [id number] Date/Time of Exam: 06/17/2022 3:43 PM Reason For Exam: cp Comparison 06/14/2022. The lungs are fully expanded. Chronic interstitial changes noted. No consolidating infiltrate or pleu ral effusion. Unremarkable cardiomediastinal silhouette. Fusion hardware noted in the lower C-spine. Monitoring leads superimpose the chest. XR/XR chest 1V portable [id number] IMPRESSION: 1. No acute cardiopulmonary finding. 2. Chronic interstitial changes.
--- NOTE | 2022-06-17 15:25 | ECG_ITS ---
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 Measurements Intervals [place] Rate: 67 P: 101 RI: 158 QRS: 106 QRSD: 82 T: -18 QT: 367 QTc: 388 Interpretive Statements SINUS RHYTHM POSSIBLE LEFT ATRIAL ENLARGEMENT [-0.1mV P-WAVE IN V1/V2] RIGHT AXIS DEVIATION [QRS AXIS > 100] NONSPECIFIC T-WAVE ABNORMALITY Compared to ECG 06/17/2022 13:49:07 Right-axis deviation now present T-wave abnormality still present Electronically Signed On 06-18-2022 0:31:38 CDT by Ivis Drake M.D. [id number]
--- NOTE | 2022-06-17 15:27 | ED_ITS ---
HPI - SOB/Dyspnea General: Chief Complaint: Shortness of Breath/Dyspnea Stated Complaint: sob Time Seen by Provider: 06/17/22 14:48 Source: patient Mode of arrival: ambulatory Limitations: no limitations History of Present Illness: HPI Narrative: This patient made her way to the emergency department today again because she feels like she is having abdominal distention, shortness of breath and some having discomfort in her shoulder blades. She states the symptoms been present now couple of days. She states her other major concern is that she has gained weight approximately 10 pounds in the last several days. She states she has been taking her medications as prescribed and she has been urinating frequently due to her Lasix. She denies any fevers cough productive of any sputum etc. He was recently seen in the emergency department and started on prednisone and a week prior to that she was seen and admitted and had a angiogram which did not show any obstructive coronary lesions at that time. She stopped smoking approximately 1 week ago. Associated symptoms: Reports chest pain; Deny extremity pain, fever(s), lightheadedness, nausea, palpitations, syncope or vomiting Review of Systems Const: Denies: fever(s) or chills Eyes: Denies: change in vision ENMT: Denies: throat pain or odynophagia Card: Reports: chest pain; Denies: palpitations, lightheadedness, syncope or pre-syncope Resp: Reports: dyspnea; Denies: productive cough, wheezing or stridor GI: Denies: nausea, vomiting or diarrhea : Denies: flank pain, difficulty voiding, dysuria or urinary frequency Musc: Denies: neck pain, extremity pain or extremity swelling Skin/Breast: Denies: rash Neuro: Denies: headache(s), numbness in extremities or weakness in extremities PFSH ED PFSH: Medical History CAD (coronary artery disease) Cirrhosis COPD (chronic obstructive pulmonary disease) Hemochromatosis Hypertension Nocturnal hypoxia NSAID long-term use Smoking addiction Status post chemoradiation Vaginal tumors Surgical History H/O vaginal surgery Family History Denies family history of Colon cancer Ovarian cancer Diabetes Heart disease Hypercholesteremia Breast cancer Hypertension Uterine cancer Thyroid disease Stroke Social History Smoking and tobacco status: current every day smoker cigarettes [ Other cigaret te details: cut down to 0.5 ppd] Alcohol intake: never Lives independently: Yes Household members: significant other Marital status: Single Physical Exam Narrative: EXAM NARRATIVE: The patient makes good eye contact. Speech is goal-directed and she talks in complete sentences without dyspnea. Const: COMMON NORMALS: no acute distress, patient oriented x3 and alert GENERAL APPEARANCE: cooperative and comfortable NUTRITIONAL APPEARANCE: overweight HENMT: COMMON NORMALS: normocephalic, Normal nasal mucous membranes and turbinates present, moist oral mucous membranes and oropharynx normal HEAD & SCALP: normocephalic NOSE: Normal nasal mucous membranes and turbinates present Eye: COMMON NORMALS: Equal, round and reactive pupils present, EOMs intact bilaterally and conjunctivae normal CONJUNCTIVA: Yes conjunctivae normal PUPIL: Yes Equal, round and reactive pupils present Neck/C-Spine: COMMON NORMALS: full ROM, no lymphadenopathy and no JVD Chest: COMMONS NORMALS: normal inspection of the chest and normal palpation of entire chest wall Resp: COMMON NORMALS: normal respiratory effort, No retractions, No use of accessory muscles and clear to auscultation bilaterally AUSCULTATION: clear to auscultation bilaterally Cardio: COMMON NORMALS: no JVD, regular rate, regular rhythm, No murmurs present (Cardio) and Peripheral pulses 2+ throughout RATE: regular rate RHYTHM: regular rhythm PERIPHERAL PULSES: Peripheral pulses 2+ throughout GI: COMMON NORMALS: Soft to palpation, non-tender, no masses and no bruits PALPATION: Yes Soft to palpation : COMMON NORMALS: Yes no CVA tenderness BLADDER/KIDNEY EXAM: Yes no CVA tenderness Back/Pelvis: COMMON NORMALS: no CVA tenderness, thoracic and lumbar spine normal to inspection, no thoracic nor lumbar tenderness and thoraco-lumbar ROM normal Extremity: COMMON NORMALS: normal to inspection, capillary refill normal, no calf tenderness and no pedal edema Neuro: COMMON NORMALS: patient oriented x3, moves all extremities, no focal motor deficits and no sensory deficits noted SENSORIUM/ORIENTATION: Yes alert CRANIAL NERVES: Yes CN normal except as noted Psych: COMMON NORMALS: mental status grossly normal Skin: COMMON NORMALS: no rashes or lesions noted and turgor normal GENERAL SKIN EXAM: no rashes or lesions noted and turgor normal Course Reevaluation(s): Reevaluation #1: Patient was somewhat anxious about her condition and I discussed current preliminary findings and need for additional work-up with her given her presenting complaints and her current findings. She voiced understanding of our discussion and felt much better after being in the lightened. We have a CTPA pending to ensure no evidence of thromboembolic events etc. at this time. I feel that many of her subjective symptoms may be related to her prednisone causing some weight gain and water retention. Time: 16:31 Vital Signs: Vital signs: Vital Signs Temperature 98.4 F 06/17/22 13:41 Pulse Rate 71 06/17/22 18:30 Respiratory Rate 20 H 06/17/22 16:30 Blood Pressure 190/102 06/17/22 18:15 Pulse Oximetry 95 06/17/22 18:45 Oxygen Delivery Me thod 06/17/22 13:41 MDM - SOB/Dyspnea Medical Decision Making This patient with a known history of nonobstructive coronary disease as well as chronic obstructive pulmonary disease, tobacco use as well as previous similar symptoms presented to the emergency department because she was concerned about what she described as weight gain, abdominal distention etc. Denies any fevers or chills. She denies any sustained chest pain etc. She did complain of some mid scapular pain but again had no productive cough and stated she has been taking her medication regimen as prescribed. Her differential was rather broad initially but was narrowed by use of ancillary studies. Serial troponins showed no elevation making ACS etc. extremely unlikely. Particularly in light of her recent coronary angiogram which showed no no evidence of obstructive lesions. A D-dimer was slightly elevated and she received the benefit of a CTPA which did not reveal any evidence of a pulmonary embolus or other concerning findings on chest CT. The patient subjectively was quite comfortable and adamant that she be discharged in the emergency department. At this time we have no evidence of an ongoing emergency medical condition to suggest further observation and or admission. Her recent prednisone dosing may have contributed to some of her recent weight gain and I explained this to the patient as well but also discussed the need for return for any ongoing or worsening symptoms. Medical Records I reviewed the patient's medical records. Lab Data I reviewed the patient's lab results. 06/17/22 14:47 06/17/22 14:47 Labs/Radiology: Radiology Impressions Chest X-Ray 06/17/22 15:23 IMPRESSION: 1. No acute cardiopulmonary finding. 2. Chronic interstitial changes. Chest CTA 06/17/22 16:15 IMPRESSION: Evidence of pulmonary embolism. Laboratory Results WBC 6.0 10^3/uL (4.0-10.0) 06/17/22 14:47 RBC 4.41 10^6/uL (4.1-5.3) 06/17/22 14:47 Hgb 14.8 g/dL (11.5-15.3) 06/17/22 14:47 Hct 44.9 % (37.0-47.0) 06/17/22 14:47 MCV 101.8 fl (81-99) H 06/17/22 14:47 MCH 33.6 pg (28.0-34.0) 06/17/22 14:47 MCHC 33.0 g/dL (30.0-36.0) 06/17/22 14:47 RDW 13.2 % (12.1-15.1) 06/17/22 14:47 Plt Count 172 10^3/cmm (130-400) 06/17/22 14:47 MPV 9.8 fL (7.4-10.4) 06/17/22 14:47 Neut % (Auto) 62.9 % 06/17/22 14:47 Lymph % (Auto) 25.3 % 06/17/22 14:47 [place] % (Auto) 7.0 % 06/17/22 14:47 Eos % (Auto) 2.3 % 06/17/22 14:47 Baso % (Auto) 0.7 % 06/17/22 14:47 Neut # (Auto) 3.77 10^3/uL (1.8-7.7) 06/17/22 14:47 Lymph # (Auto) 1.5 10^3/uL (0.8-4.8) 06/17/22 14:47 [place] # (Auto) 0.4 10^3/uL (0.2-0.9) 06/17/22 14:47 Eos # (Auto) 0.1 10^3/uL (0.0-0.8) 06/17/22 14:47 Baso # (Auto) 0.0 10^3/uL (0.0-0.1) 06/17/22 14:47 Nucleated RBC % (auto) 0 % 06/17/22 14:47 Nucleated RBCs # 0.0 /100WBC 06/17/22 14:47 D-Dimer 0.71 ug/mIFEU (0-0.59) H 06/17/22 14:47 Sodium 144 mmol/L (136-145) 06/17/22 14:47 Potassium 3.6 mmol/L (3.5-5.1) 06/17/22 14:47 Chloride 107 mmol/L (98-107) 06/17/22 14:47 Carbon Dioxide 26 mmol/L (22-29) 06/17/22 14:47 Anion Gap 14.6 (5-19) 06/17/22 14:47 BUN 20 mg/dL (6-20) 06/17/22 14:47 Creatinine 0.7 mg/dL (0.5-0.9) 06/17/22 14:47 GFR Calculation 86.6 mL/min (90-130) L 06/17/22 14:47 Glucose 150 mg/dL (65-115) H 06/17/22 14:47 Calculated Osmolality 303 mOsm/kg (285-295) H 06/17/22 14:47 Calcium 9.5 mg/dL (8.5-10.5) 06/17/22 14:47 Total Bilirubin 0.2 mg/dL (0.15-1.2) 06/17/22 14:47 AST 15 U/L (0-32) 06/17/22 14:47 ALT 26 U/L (0-33) 06/17/22 14:47 Alkaline Phosphatase 101 U/L (35-105) 06/17/22 14:47 Troponin T Baseline 13 ng/L (0-10) H 06/17/22 14:47 Troponin T 120 Minute 12.31 ng/L (0-10) H 06/17/22 16:10 Delta Troponin T -0.69 ABS# (0-10) L 06/17/22 16:10 NT-Pro-B Natriuret Pep 597 pg/mL (0-125) H 06/17/22 14:47 Total Protein 6.7 g/dL (6.6-8.7) 06/17/22 14:47 Albumin 3.6 g/dL (3.5-5.2) 06/17/22 14:47 Globulin 3.1 g/dL (1.3-4.6) 06/17/22 14:47 EKG Data EKG 1: I personally reviewed and interpreted this EKG as follows: Interpretation: Contemporaneous review of EKG reveals ventricular rate of 67 bpm with normal VT interval, QRS duration, corrected QT interval. Borderline right axis. Nonspecific ST-T wave changes but no significant change from prior tracings. Discharge Plan Discharge Patient Disposition: Home Clinical Impression: COPD (chronic obstructive pulmonary disease) Condition: Stable Prescriptions: No Action clopidogrel [Plavix] 75 mg tablet 75 mg PO QAM (DME) night splint See Rx Instructions .Route .MEDSUPPLY Qty: 1 0RF Rx Instructions: As directed (DME) CAM boot See Rx Instructions .Route .MEDSUPPLY Qty: 1 0RF Rx Instructions: As directed ([facility] [place] Crutches See Rx Instructions .Route .MEDSUPPLY Qty: 1 0RF Rx Instructions: As directed to [facility] ([facility] [place]) Crutches See Rx Instructions .Route .MEDSUPPLY Qty: 1 0RF Rx Instructions: As directed HOME ibuprofen 800 mg tablet 800 mg PO TID PRN (Reason: Pain) meloxicam 15 mg tablet 15 mg PO DAILY methylprednisolone [Medrol (Alessandro)] 4 mg tablets,dose pack See Rx Instructions .ROUTE .COMPLEX Qty: 21 0RF Rx Instructions: orally per package directions albuterol sulfate 90 mcg/actuation HFA aerosol inhaler 2 inh INHALATION Q4H PRN (Reason: shortness of breath or wheezing) Qty: 18 0RF hydrocodone-acetaminophen 7.5-325 mg tablet 1 tab PO Q4H PRN (Reason: Pain) fluticasone propion-salmeterol [Advair Diskus] 500-50 mcg/dose blister with device 1 inh INHALATION BID lisinopril 40 mg tablet 40 mg PO BID fluoxetine 20 mg capsule 20 mg PO QAM bupropion HCl 450 mg tablet extended release 24 hr 450 mg PO QAM albuterol sulfate 2.5 mg /3 mL (0.083 %) solution for nebulization 2.5 mg inhalation Q4H PRN (Reason: Shortness Of Breath) aspirin 81 mg Tablet,Delayed Release (Dr/Ec) 81 mg PO QAM bumetanide 1 mg tablet 1 mg PO QAM hydroxyzine HCl 25 mg tablet 25 - 50 mg PO QID PRN (Reason: Anxiety) hydrochlorothiazide 25 mg tablet 25 mg PO QAM albuterol sulfate [Ventolin HFA] 90 mcg/actuation HFA aerosol inhaler 2 puff INHALATION QID PRN (Reason: Shortness Of Breath) aripiprazole 30 mg tablet 30 mg PO QAM atorvastatin 40 mg Tablet 40 mg PO BEDTIME 30 Days Qty: 30 0RF isosorbide mononitrate 30 mg Tablet Extended Release 24 Hr 30 mg PO DAILY 30 Days Qty: 30 0RF pantoprazole [Protonix] 40 mg tablet,delayed release (DR/EC) 40 mg PO DAILY 28 Days Qty: 30 0RF carvedilol 25 mg tablet 25 mg PO BID 30 Days Qty: 60 0RF Rx Instructions: must administer with a meal/food Discharge Orders: Discharge ED (Routine); Ordered 06/17/22 Ordered By: Jez Barnhart Referrals: Ryann Burk [Primary Care Provider] - Discharge Diet: Low Salt Discharge Activity: Increase activity as tolerated Patient Instructions: Opioid Safety, Pain Management Activity Restrictions/Additional Instructions: Continue all your usual prescribed medications. Do not smoke cigarettes. If you develop any increasing shortness of breath, or other concerning symptoms return to this or the nearest emergency department immediately. Follow-up with your primary care doctor for your routine ongoing care. Coding Level of Care Code ED Sales And Merchandising Associate for Ann Machuca
[2022-06-17 15:34] LABS: Basophils % 0.7 %; Eosinophils # 0.1 10^3/uL (0.0-0.8); Eosinophils % 2.3 %; Hematocrit 44.9 % (37.0-47.0); Hemoglobin 14.8 g/dL (11.5-15.3); Lymphocytes # 1.5 10^3/uL (0.8-4.8); Lymphocytes % 25.3 %; Mean Corpuscular Hemoglobin 33.6 pg (28.0-34.0); Mean Corpuscular Volume 101.8 fl (81-99); Mean Platelet Volume 9.8 fL (7.4-10.4); Monocytes # 0.4 10^3/uL (0.2-0.9); Neutrophils # 3.77 10^3/uL (1.8-7.7); Neutrophils % 62.9 %; Nucleated Red Blood Cells % 0 %; Platelet Count 172 10^3/cmm (130-400); Red Blood Count 4.41 10^6/uL (4.1-5.3); Red Cell Distribution Width 13.2 % (12.1-15.1)
--- NOTE | 2022-06-17 15:36 | PC.NURSE ---
pt denies any chest pain, reports upper back pain.
[2022-06-17 16:01] LABS: D Dimer 0.71 ug/mIFEU (0-0.59)
[2022-06-17 16:04] LABS: Troponin(5th) Baseline 13 ng/L (0-10)
[2022-06-17 16:10] LABS: Alanine Aminotransferase 26 U/L (0-33); Albumin Level 3.6 g/dL (3.5-5.2); Alkaline Phosphatase 101 U/L (35-105); Aspartate Amino Transferase 15 U/L (0-32); Blood Urea Nitrogen 20 mg/dL (6-20); Calcium 9.5 mg/dL (8.5-10.5); Carbon Dioxide 26 mmol/L (22-29); Chloride 107 mmol/L (98-107); Globulin 3.1 g/dL (1.3-4.6); Glomerular Filtration Rate 86.6 mL/min (90-130); Glucose 150 mg/dL (65-115); NT Pro B Type Natriuretic Pept 597 pg/mL (0-125); Osmolality Calculated 303 mOsm/kg (285-295); Sodium 144 mmol/L (136-145); Total Bilirubin 0.2 mg/dL (0.15-1.2); Total Protein 6.7 g/dL (6.6-8.7)
[2022-06-17 16:15] LABS: Anion Gap 14.6 (5-19); Potassium 3.6 mmol/L (3.5-5.1)
--- NOTE | 2022-06-17 16:15 | CTR_ITS ---
PROCEDURE INFORMATION: Exam: CTA Chest With Contrast Exam date and time: 06/17/2022 5:14 PM Age: 56 years old Clinical indication: Shortness of breath; Additional info: SOB, elevated dimer past age cut off TECHNIQUE: Imaging protocol: Computed tomographic angiography of the chest with contrast. 3D rendering (Not supervised by radiologist): MIP and/or 3D reconstructed images were created by the technologist. Radiation optimization: All CT scans at this facility use at least one of these dose optimization techniques: automated exposure control; mA and/or kV adjustment per patient size (includes targeted exams where dose is matched to clinical indication); or iterative reconstruction. Contrast material: OMNI 350; Contrast volume: 100 ml; Contrast route: INTRAVENOUS (IV); REPORTING DATA: Count of CT and Cardiac NM exams in prior 12 months: This patient has received [address] and 0 known cardiac nuclear medicine studies in the 12 months prior to the current study. COMPARISON: CT angio chest [id number] 06/09/2022 11:06 PM RADIATION DOSE METRICS: Total DLP (mGy-cm): 495.08 FINDINGS: Limitations: Study is somewhat limited by patient respiratory motion. Pulmonary arteries: There is no evidence of filling defects within the pulmonary arterial circulation to suggest pulmonary embolism. Aorta: There is no thoracic aortic aneurysm or dissection. Lungs: Lungs are clear. Pleural spaces: Unremarkable. No pneumothorax. No pleural effusion. Heart: The heart is mildly enlarged. Reflux of contrast material into the inferior vena cava and hepatic veins may indicate some cardiac dysfunction. Coronary arteries: Coronary artery stents are identified. Lymph nodes: There is no evidence of lymphadenopathy. There is a calcified prevascular lymph node which may be related to prior granulomatous disease. Bones/joints: Unremarkable. No acute fracture. Soft tissues: Unremarkable. CT/CT angio chest PE protcl [id number] IMPRESSION: Evidence of pulmonary embolism.
[2022-06-17] MEDS: morphine 4 mg/mL SDV 1 mL IVP (16:27)
--- NOTE | 2022-06-17 16:35 | PC.NURSE ---
pt upset and wanting to leave AMA. pt states she is not here for chest pain, so she does not understand why she is getting a cardiac work up. pt educated on s/s of HI and updated on her lab values. educated pt that we are ruling out any life threatening events. pt verbalized understanding and appears more understanding. informed pt to hit her call light or reach out if she has any other questions.
[2022-06-17 16:54] LABS: Troponin 5 2HR 12.31 ng/L (0-10)
[2022-06-17 16:55] LABS: Troponin 5 2HR Delta -0.69 ABS# (0-10)
--- NOTE | 2022-06-17 17:37 | ECG_ITS ---
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 Measurements Intervals [place] Rate: 68 P: 61 HI: 165 QRS: 71 QRSD: 81 T: 16 QT: 379 QTc: 405 Interpretive Statements SINUS RHYTHM MINIMAL VOLTAGE CRITERIA FOR LVH, CONSIDER NORMAL VARIANT [MEETS CRITERIA IN ONE OF: R(aVL), S(V1), R(V5), R(V5/V6)+S(V1)] NONSPECIFIC T-WAVE ABNORMALITY Compared to ECG 06/17/2022 15:35:27 Right-axis deviation no longer present T-wave abnormality still present Electronically Signed On 06-18-2022 0:54:16 CDT by Ivis Drake M.D. [email or web address]/store/[id number]
--- NOTE | 2022-06-17 17:51 | PC.NURSE ---
pt resting in bed, talking with visitors. pt reports improvement of pain. updated pt on plan of care, waiting on results of imaging
--- NOTE | 2022-06-17 18:50 | PC.NURSE ---
report given to Ciaran
== END 2022-06-17 19:30 | disposition home or self-care (01) ==
PROVIDERS: Emergency Provider Emergency Medicine; PCP Family Medicine
DX: J44.9 Chronic obstructive pulmonary disease, unspecified (principal); Z79.82 Long term (current) use of aspirin; Z79.02 Long term (current) use of antithrombotics/antiplatelets; I25.10 Atherosclerotic heart disease of native coronary artery without angina pectoris; I10 Essential (primary) hypertension; F17.210 Nicotine dependence, cigarettes, uncomplicated
CPT/HCPCS: 36415; 71045; 71275; 80053; 83880; 84484; 85025; 85378; 93005; 96374; 99285; J2270; Q9967

== ENCOUNTER → 2022-06-25 10:54 | Outpatient (BNVA) | payer MEDICAID, SELFPAY | PROVIDERS: PCP Family Medicine; Visit Provider Nurse Practitioner Family | DX: I25.110 Atherosclerotic heart disease of native coronary artery with unstable angina pectoris (principal); I11.0 Hypertensive heart disease with heart failure; I50.30 Unspecified diastolic (congestive) heart failure; F17.210 Nicotine dependence, cigarettes, uncomplicated; Z79.82 Long term (current) use of aspirin | CPT/HCPCS: 99214 ==

== ENCOUNTER 2022-07-01 13:37 | Oncology outpatient (recurring) (ONCR) | payer MEDICAID, SELFPAY ==
[2022-07-01 14:14] LABS: Basophils % 0.8 %; Eosinophils # 0.1 10^3/uL (0.0-0.8); Eosinophils % 1.3 %; Hematocrit 45.1 % (37.0-47.0); Hemoglobin 15.1 g/dL (11.5-15.3); Lymphocytes # 1.3 10^3/uL (0.8-4.8); Mean Corpuscular HGB Conc 33.5 g/dL (30.0-36.0); Mean Corpuscular Hemoglobin 33.6 pg (28.0-34.0); Mean Corpuscular Volume 100.4 fl (81-99); Mean Platelet Volume 8.9 fL (7.4-10.4); Monocytes # 0.5 10^3/uL (0.2-0.9); Monocytes % 10.4 %; Neutrophils # 2.78 10^3/uL (1.8-7.7); Neutrophils % 58.9 %; Nucleated Red Blood Cells % 0 %; Platelet Count 145 10^3/cmm (130-400); Red Blood Count 4.49 10^6/uL (4.1-5.3); Red Cell Distribution Width 14.2 % (12.1-15.1); White Blood Count 4.7 10^3/uL (4.0-10.0)
[2022-07-01 14:42] LABS: Ferritin 208 ng/mL (15-150); Iron 142 ug/dL (37-145); Percent Saturation 58.1 % (20-50); Total Iron Binding Capacity 244 mcg/dl; Unsaturated Iron Binding 102 ug/dL (112-347)
== END 2022-07-20 23:59 | disposition home or self-care (01) ==
PROVIDERS: PCP Family Medicine; Visit Provider Internal Medicine Hematology & Oncology
DX: E83.110 Hereditary hemochromatosis (principal); R79.89 Other specified abnormal findings of blood chemistry; Z79.899 Other long term (current) drug therapy
CPT/HCPCS: 36415; 81256; 82728; 83540; 83550; 85025; 99204

== ENCOUNTER 2022-07-08 18:27 | Emergency (ER) | payer MEDICAID, SELFPAY ==
--- NOTE | 2022-07-08 18:29 | XRR_ITS ---
PROCEDURE INFORMATION: Exam: XR Chest Exam date and time: 07/08/2022 7:00 PM Age: 56 years old Clinical indication: Shortness of breath; Additional info: SOB TECHNIQUE: Imaging protocol: Radiologic exam of the chest. Views: 1 view. COMPARISON: CR XR chest 1V portable [id number] 06/17/2022 3:50 PM FINDINGS: Lungs: Unremarkable. No consolidation. Pleural spaces: Unremarkable. No pleural effusion. No pneumothorax. Heart/Mediastinum: Unremarkable. No cardiomegaly. Bones/joints: Unremarkable. XR/XR chest 1V portable [id number] IMPRESSION: No acute findings.
[2022-07-08 18:32] VITALS: BP 173/90; PULSE 86; RESP 20; TEMP 36.6; O2SAT 96
[2022-07-08 19:02] LABS: Basophils % 0.7 %; Eosinophils # 0.1 10^3/uL (0.0-0.8); Eosinophils % 2.2 %; Hematocrit 46.7 % (37.0-47.0); Hemoglobin 15.5 g/dL (11.5-15.3); Lymphocytes # 1.7 10^3/uL (0.8-4.8); Lymphocytes % 28.9 %; Mean Corpuscular HGB Conc 33.2 g/dL (30.0-36.0); Mean Corpuscular Hemoglobin 34.1 pg (28.0-34.0); Mean Corpuscular Volume 102.9 fl (81-99); Monocytes # 0.5 10^3/uL (0.2-0.9); Neutrophils # 3.56 10^3/uL (1.8-7.7); Neutrophils % 58.9 %; Nucleated Red Blood Cells % 0 %; Platelet Count 144 10^3/cmm (130-400); Red Blood Count 4.54 10^6/uL (4.1-5.3); Red Cell Distribution Width 14.3 % (12.1-15.1)
[2022-07-08 19:25] LABS: INR 0.98 (0.8-1.2)
[2022-07-08 19:38] LABS: Alanine Aminotransferase 32 U/L (0-33); Alkaline Phosphatase 108 U/L (35-105); Anion Gap 13.8 (5-19); Aspartate Amino Transferase 18 U/L (0-32); Blood Urea Nitrogen 16 mg/dL (6-20); Calcium 9.4 mg/dL (8.5-10.5); Carbon Dioxide 28 mmol/L (22-29); Chloride 107 mmol/L (98-107); Globulin 2.7 g/dL (1.3-4.6); Glomerular Filtration Rate 74.2 mL/min (90-130); Glucose 112 mg/dL (65-115); NT Pro B Type Natriuretic Pept 354 pg/mL (0-125); Osmolality Calculated 302 mOsm/kg (285-295); Potassium 3.8 mmol/L (3.5-5.1); Sodium 145 mmol/L (136-145); Total Bilirubin 0.2 mg/dL (0.15-1.2); Total Protein 6.7 g/dL (6.6-8.7)
== END 2022-07-08 22:45 | disposition left against medical advice (07) ==
PROVIDERS: Emergency Medicine; Emergency Provider Family Medicine; PCP Family Medicine
DX: Z53.21 Procedure and treatment not carried out due to patient leaving prior to being seen by health care provider (principal)
CPT/HCPCS: 36415; 71045; 80053; 83880; 85025; 85610

== ENCOUNTER 2022-07-17 17:07 | Emergency (ER) | payer MEDICAID, SELFPAY ==
[2022-07-17 17:21] VITALS: BP 109/71; PULSE 75; RESP 16; TEMP 36.4; O2SAT 94; BMI 36.0
--- NOTE | 2022-07-17 17:29 | ECG_ITS ---
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 Measurements Intervals [place] Rate: 78 P: -37 [place]: 150 QRS: 139 QRSD: 90 T: -32 QT: 388 QTc: 442 Interpretive Statements SINUS RHYTHM POSSIBLE LEFT ATRIAL ENLARGEMENT [-0.1mV P-WAVE IN V1/V2] LEFT POSTERIOR FASCICULAR BLOCK [QRS AXIS > 109, INFERIOR Q] INFERIOR MYOCARDIAL INFARCTION , OF INDETERMINATE AGE [40+ ms Q WAVE AND/OR ST/T ABNORMALITY IN II/aVF] MODERATE T-WAVE ABNORMALITY, CONSIDER LATERAL ISCHEMIA [-0.1+ mV T-WAVE IN I/aVL/V5/V6] Compared to ECG 06/17/2022 17:37:41 Left posterior fascicular block now present Myocardial infarct finding now present Possible ischemia now present T-wave abnormality still present Electronically Signed On 07-19-2022 16:29:36 CDT by Ivis Drake M.D. [id number]
--- NOTE | 2022-07-17 19:05 | XRR_ITS ---
PROCEDURE INFORMATION: Exam: XR Chest Exam date and time: 07/17/2022 7:11 PM Age: 57 years old Clinical indication: Shortness of breath; Additional info: Shob TECHNIQUE: Imaging protocol: Radiologic exam of the chest. Views: 1 view. COMPARISON: CR (CHEST, ) 07/08/2022 7:00 PM FINDINGS: Lungs: Unremarkable. No consolidation. Pleural spaces: Unremarkable. No pleural effusion. No pneumothorax. Heart/Mediastinum: Unremarkable. No cardiomegaly. Bones/joints: Unremarkable. XR/XR chest 1V portable [id number] IMPRESSION: No acute findings.
[2022-07-17 19:08] LABS: Basophils % 0.5 %; Eosinophils # 0.1 10^3/uL (0.0-0.8); Eosinophils % 1.1 %; Hematocrit 48.4 % (37.0-47.0); Hemoglobin 16.9 g/dL (11.5-15.3); Lymphocytes # 1.9 10^3/uL (0.8-4.8); Lymphocytes % 25.2 %; Mean Corpuscular HGB Conc 34.9 g/dL (30.0-36.0); Mean Corpuscular Volume 97.4 fl (81-99); Mean Platelet Volume 9.2 fL (7.4-10.4); Monocytes # 0.7 10^3/uL (0.2-0.9); Monocytes % 8.8 %; Neutrophils # 4.81 10^3/uL (1.8-7.7); Neutrophils % 64.1 %; Nucleated Red Blood Cells % 0 %; Platelet Count 168 10^3/cmm (130-400); Red Blood Count 4.97 10^6/uL (4.1-5.3); Red Cell Distribution Width 13.4 % (12.1-15.1); White Blood Count 7.5 10^3/uL (4.0-10.0)
--- NOTE | 2022-07-17 19:14 | CTR_ITS ---
PROCEDURE INFORMATION: Exam: CT Abdomen And Pelvis Without Contrast Exam date and time: 07/17/2022 7:33 PM Age: 57 years old Clinical indication: Abdominal pain; Generalized; Prior surgery; Surgery date: 6+ months; Surgery type: Appy; Additional info: Abd pain TECHNIQUE: Imaging protocol: Computed tomography of the abdomen and pelvis without contrast. Radiation optimization: All CT scans at this facility use at least one of these dose optimization techniques: automated exposure control; mA and/or kV adjustment per patient size (includes targeted exams where dose is matched to clinical indication); or iterative reconstruction. REPORTING DATA: Count of CT and Cardiac NM exams in prior 12 months: This patient has received 2 known CTs and 0 known cardiac nuclear medicine studies in the 12 months prior to the current study. COMPARISON: US abdomen lmt fluid [id number] 06/10/2022 7:47 AM RADIATION DOSE METRICS: Total DLP (mGy-cm): 867 FINDINGS: Heart: Trace pericardial effusion. Coronary arteries: Coronary artery atherosclerotic calcifications. Liver: Normal. No mass. Gallbladder and bile ducts: Normal. No calcified stones. No ductal dilation. Pancreas: Normal. No ductal dilation. Spleen: Normal. No splenomegaly. Adrenal glands: Left adrenal hypertrophy suspected. Kidneys and ureters: Right kidney lower pole punctate nonobstructing calyceal stone. Stomach and bowel: Mild sigmoid colon wall thickening may be due to nondistention, please correlate for possible colitis. Appendix: No evidence of appendicitis. Intraperitoneal space: Unremarkable. No free air. No significant fluid collection. Vasculature: Unremarkable. No abdominal aortic aneurysm. Lymph nodes: Unremarkable. No enlarged lymph nodes. Urinary bladder: Punctate air in the urinary bladder may be iatrogenic. Reproductive: Unremarkable as visualized. Bones/joints: Unremarkable. No acute fracture. Soft tissues: Unremarkable. CT/CT abdomen pelvis wo con [id number] IMPRESSION: 1. Mild sigmoid colon wall thickening may be due to nondistention, please correlate for possible colitis. 2. Punctate air in the urinary bladder may be iatrogenic. 3. Coronary artery atherosclerotic calcifications. 4. Trace pericardial effusion. 5. Left adrenal hypertrophy suspected. 6. Right kidney lower pole punctate nonobstructing calyceal stone.
[2022-07-17 19:33] LABS: Troponin(5th) Baseline 13 ng/L (0-10)
[2022-07-17 19:35] LABS: Alanine Aminotransferase 23 U/L (0-33); Albumin Level 4.1 g/dL (3.5-5.2); Alkaline Phosphatase 127 U/L (35-105); Aspartate Amino Transferase 14 U/L (0-32); Blood Urea Nitrogen 22 mg/dL (6-20); Calcium 9.4 mg/dL (8.5-10.5); Carbon Dioxide 27 mmol/L (22-29); Chloride 102 mmol/L (98-107); Globulin 3.2 g/dL (1.3-4.6); Glomerular Filtration Rate 64.5 mL/min (90-130); Glucose 120 mg/dL (65-115); NT Pro B Type Natriuretic Pept 321 pg/mL (0-125); Osmolality Calculated 297 mOsm/kg (285-295); Sodium 141 mmol/L (136-145); Total Bilirubin 0.3 mg/dL (0.15-1.2); Total Protein 7.3 g/dL (6.6-8.7)
--- NOTE | 2022-07-17 20:21 | ECG_ITS ---
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 Measurements Intervals [place] Rate: 67 P: 49 NM: 165 QRS: 59 QRSD: 88 T: 0 QT: 395 QTc: 419 Interpretive Statements SINUS RHYTHM MODERATE T-WAVE ABNORMALITY, CONSIDER LATERAL ISCHEMIA [-0.1+ mV T-WAVE IN I/aVL/V5/V6] Compared to ECG 07/17/2022 17:29:00 Left posterior fascicular block no longer present Myocardial infarct finding no longer present T-wave abnormality still present Possible ischemia still present Electronically Signed On 07-19-2022 16:46:53 CDT by Ivis Drake M.D. [email or web address]/[id number]
--- NOTE | 2022-07-17 20:40 | W.ED.SOB ---
HPI - SOB/Dyspnea General: Chief Complaint: Shortness of Breath/Dyspnea Stated Complaint: sob Time Seen by Provider: 07/17/22 19:03 Source: patient Mode of arrival: ambulatory Limitations: no limitations History of Present Illness: HPI Narrative: 57-year-old female who has a history of liver hemochromatosis states that she feels like her abdomen is distended causing her some shortness of breath states an appoint with surgery next week she is also having abdominal pain she rates a 5 out of 10 she is in no distress here no cough no fever no vomiting no diarrhea. Associated symptoms: Reports abdominal pain; Deny chest pain, fever(s), nausea or vomiting Review of Systems Const: Denies: fever(s), chills, body aches or change in appetite Eyes: Denies: eye discomfort ENMT: Denies: throat pain or dental pain Card: Denies: chest pain Resp: Reports: dyspnea GI: Reports: abdominal pain; Denies: nausea, vomiting or diarrhea : Denies: dysuria Musc: Denies: neck pain or back pain Skin/Breast: Denies: rash Neuro: Denies: headache(s) PFSH ED PFSH: Medical History CAD (coronary artery disease) Cirrhosis COPD (chronic obstructive pulmonary disease) Hemochromatosis Hemochromatosis Hypertension Nocturnal hypoxia NSAID long-term use Smoking addiction Status post chemoradiation Vaginal tumors Surgical History H/O vaginal surgery Family History Denies family history of Colon cancer Ovarian cancer Diabetes Heart disease Hypercholesteremia Breast cancer Hypertension Uterine cancer Thyroid disease Stroke Social History Smoking and tobacco status: former smoker Quit status (tobacco): quit date established Planned quit date: 05/27/22 Alcohol intake: never Substance/Drug Use: never Lives independently: Yes Household members: significant other Marital status: Single Physical Exam Const: COMMON NORMALS: no acute distress, patient oriented x3 and healthy appearing HENMT: COMMON NORMALS: normocephalic and atraumatic HEAD & SCALP: normocephalic and atraumatic Eye: COMMON NORMALS: conjunctivae normal CONJUNCTIVA: Yes conjunctivae normal Neck/C-Spine: COMMON NORMALS: full ROM and supple Chest: COMMONS NORMALS: normal inspection of the chest and normal palpation of entire chest wall Resp: COMMON NORMALS: normal respiratory effort, No retractions, No use of accessory muscles and clear to auscultation bilaterally AUSCULTATION: clear to auscultation bilaterally Cardio: COMMON NORMALS: regular rate, regular rhythm and No murmurs present (Cardio) RATE: regular rate RHYTHM: regular rhythm GI: COMMON NORMALS: Normal to inspection, nondistended, normoactive bowel sounds present, Soft to palpation, non-tender and no masses PALPATION: Yes Soft to palpation Extremity: COMMON NORMALS: normal to inspection and full ROM Neuro: COMMON NORMALS: patient oriented x3, moves all extremities and no focal motor deficits Psych: COMMON NORMALS: mental status grossly normal, Normal thought process present and cooperative THOUGHT PROCESS: Normal thought process present Skin: COMMON NORMALS: no rashes or lesions noted and no wounds GENERAL SKIN EXAM: no rashes or lesions noted Course Vital Signs: Vital signs: Vital Signs Temperature 97.5 F L 07/17/22 17:21 Pulse Rate 75 07/17/22 17:21 Respiratory Rate 16 07/17/22 17:21 Blood Pressure 109/71 07/17/22 17:21 Pulse Oximetry 94 07/17/22 17:21 Oxygen Delivery Me thod Room Air 07/17/22 17:21 MDM - SOB/Dyspnea Medical Decision Making Patient presents here with some abdominal pain does have a slight colitis blood work here is otherwise normal we will start her on Augmentin along with pain meds nausea medicine she has follow-up with surgery is to follow-up as scheduled return if worsening. Lab Data 07/17/22 18:58 07/17/22 18:58 Labs/Radiology: Radiology Impressions Chest X-Ray 07/17/22 19:05 IMPRESSION: No acute findings. Abdomen/Pelvis CT 07/17/22 19:14 IMPRESSION: 1. Mild sigmoid colon wall thickening may be due to nondistention, please correlate for possible colitis. 2. Punctate air in the urinary bladder may be iatrogenic. 3. Coronary artery atherosclerotic calcifications. 4. Trace pericardial effusion. 5. Left adrenal hypertrophy suspected. 6. Right kidney lower pole punctate nonobstructing calyceal stone. Laboratory Results WBC 7.5 10^3/uL (4.0-10.0) 07/17/22 18:58 RBC 4.97 10^6/uL (4.1-5.3) 07/17/22 18:58 Hgb 16.9 g/dL (11.5-15.3) H 07/17/22 18:58 Hct 48.4 % (37.0-47.0) H 07/17/22 18:58 MCV 97.4 fl (81-99) 07/17/22 18:58 MCH 34.0 pg (28.0-34.0) 07/17/22 18:58 MCHC 34.9 g/dL (30.0-36.0) 07/17/22 18:58 RDW 13.4 % (12.1-15.1) 07/17/22 18:58 Plt Count 168 10^3/cmm (130-400) 07/17/22 18:58 MPV 9.2 fL (7.4-10.4) 07/17/22 18:58 Neut % (Auto) 64.1 % 07/17/22 18:58 Lymph % (Auto) 25.2 % 07/17/22 18:58 [place] % (Auto) 8.8 % 07/17/22 18:58 Eos % (Auto) 1.1 % 07/17/22 18:58 Baso % (Auto) 0.5 % 07/17/22 18:58 Neut # (Auto) 4.81 10^3/uL (1.8-7.7) 07/17/22 18:58 Lymph # (Auto) 1.9 10^3/uL (0.8-4.8) 07/17/22 18:58 [place] # (Auto) 0.7 10^3/uL (0.2-0.9) 07/17/22 18:58 Eos # (Auto) 0.1 10^3/uL (0.0-0.8) 07/17/22 18:58 Baso # (Auto) 0.0 10^3/uL (0.0-0.1) 07/17/22 18:58 Nucleated RBC % (auto) 0 % 07/17/22 18:58 Nucleated RBCs # 0.0 /100WBC 07/17/22 18:58 Sodium 141 mmol/L (136-145) 07/17/22 18:58 Potassium 3.0 mmol/L (3.5-5.1) L 07/17/22 18:58 Chloride 102 mmol/L (98-107) 07/17/22 18:58 Carbon Dioxide 27 mmol/L (22-29) 07/17/22 18:58 Anion Gap 15.0 (5-19) 07/17/22 18:58 BUN 22 mg/dL (6-20) H 07/17/22 18:58 Creatinine 0.9 mg/dL (0.5-0.9) 07/17/22 18:58 GFR Calculation 64.5 mL/min (90-130) L 07/17/22 18:58 Glucose 120 mg/dL (65-115) H 07/17/22 18:58 Calculated Osmolality 297 mOsm/kg (285-295) H 07/17/22 18:58 Calcium 9.4 mg/dL (8.5-10.5) 07/17/22 18:58 Total Bilirubin 0.3 mg/dL (0.15-1.2) 07/17/22 18:58 AST 14 U/L (0-32) 07/17/22 18:58 ALT 23 U/L (0-33) 07/17/22 18:58 Alkaline Phosphatase 127 U/L (35-105) H 07/17/22 18:58 Troponin T Baseline 13 ng/L (0-10) H 07/17/22 18:58 NT-Pro-B Natriuret Pep 321 pg/mL (0-125) H 07/17/22 18:58 Total Protein 7.3 g/dL (6.6-8.7) 07/17/22 18:58 Albumin 4.1 g/dL (3.5-5.2) 07/17/22 18:58 Globulin 3.2 g/dL (1.3-4.6) 07/17/22 18:58 EKG Data EKG 1: I personally reviewed and interpreted this EKG as follows: EKG Interpretation Date: 07/17/22 EKG interpretation time: 20:21 Interpretation: nsr hr [address] or t wave abnormalities qrs 88 qtc 411 Discharge Plan Discharge Patient Disposition: Home Clinical Impression: Colitis, Abdominal pain Condition: Stable Prescriptions: New hydrocodone-acetaminophen 5-325 mg tablet 1 tab PO Q6H PRN (Reason: pain) Qty: 14 0RF Augmentin 500-125 mg tablet 1 tab PO BID Qty: 14 0RF ondansetron 4 mg tablet,disintegrating 4 mg PO Q6H PRN (Reason: nausea and vomiting) Qty: 14 0RF No Action clopidogrel [Plavix] 75 mg tablet 75 mg PO QAM nitroglycerin 0.4 mg tablet, sublingual 0.4 mg sublingual Q5M PRN (Reason: chest pain) Qty: 30 2RF Rx Instructions: do not exceed 3 doses per episode potassium chloride [Klor-Con 8] 8 mEq tablet extended release 8 meq PO DAILY Qty: 30 2RF Rx Instructions: Take with bumex bumetanide 1 mg tablet 1 mg PO QAM Qty: 90 2RF Rx Instructions: increase to 2mg daily for 3 days then reduce to 1mg daily. Take with potassium ibuprofen 800 mg tablet 800 mg PO TID PRN (Reason: Pain) meloxicam 15 mg tablet 15 mg PO DAILY methylprednisolone [Medrol (Alessandro)] 4 mg tablets,dose pack See Rx Instructions .ROUTE .COMPLEX Qty: 21 0RF Rx Instructions: orally per package directions albuterol sulfate 90 mcg/actuation HFA aerosol inhaler 2 inh INHALATION Q4H PRN (Reason: shortness of breath or wheezing) Qty: 18 0RF hydrocodone-acetaminophen 7.5-325 mg tablet 1 tab PO Q4H PRN (Reason: Pain) fluticasone propion-salmeterol [Advair Diskus] 500-50 mcg/dose blister with device 1 inh INHALATION BID lisinopril 40 mg tablet 40 mg PO BID fluoxetine 20 mg capsule 20 mg PO QAM bupropion HCl 450 mg tablet extended release 24 hr 450 mg PO QAM albuterol sulfate 2.5 mg /3 mL (0.083 %) solution for nebulization 2.5 mg inhalation Q4H PRN (Reason: Shortness Of Breath) aspirin 81 mg Tablet,Delayed Release (Dr/Ec) 81 mg PO QAM hydroxyzine HCl 25 mg tablet 25 - 50 mg PO QID PRN (Reason: Anxiety) hydrochlorothiazide 25 mg tablet 25 mg PO QAM albuterol sulfate [Ventolin HFA] 90 mcg/actuation HFA aerosol inhaler 2 puff INHALATION QID PRN (Reason: Shortness Of Breath) aripiprazole 30 mg tablet 30 mg PO QAM carvedilol 25 mg tablet 25 mg PO BID 30 Days Qty: 60 0RF Rx Instructions: must administer with a meal/food Discharge Orders: Discharge ED (Routine); Ordered 07/17/22 Ordered By: Jonathan Rice Referrals: Ryann Burk [Primary Care Provider] - 1-3 days Discharge Diet: Advance as tolerated Discharge Activity: Resume usual activity Patient Instructions: Abdominal Pain (ED), Colitis (ED), Opioid Safety Coding Level of Care Code ED Maintenance Of Way Supervisor for Ann Machuca
[2022-07-17] MEDS: FUROsemide 10 mg/mL SDV 4mL 40 MG IVP (20:57)
[2022-07-17] MEDS: morphine 4 mg/mL SDV 1 mL IVP (20:57)
[2022-07-17] MEDS: ondansetron 2 mg/ML SDV 2 mL 4 MG IVP (20:57)
[2022-07-17 21:10] VITALS: PULSE 72; RESP 18; O2SAT 94
[2022-07-17] MEDS: potassium chloride ER 20 mEq Tablet 40 MEQ PO (21:10)
== END 2022-07-17 21:11 | disposition home or self-care (01) ==
PROVIDERS: Emergency Provider Emergency Medicine; PCP Family Medicine
DX: K52.9 Noninfective gastroenteritis and colitis, unspecified (principal)
CPT/HCPCS: 36415; 71045; 74176; 80053; 83880; 84484; 85025; 93005; 96374; 96375; 99285; J1940; J2270; J2405

== ENCOUNTER → 2022-07-22 14:18 | Outpatient (BNVA) | payer MEDICAID, SELFPAY | PROVIDERS: PCP Family Medicine; Visit Provider Surgery | DX: R10.11 Right upper quadrant pain (principal) | CPT/HCPCS: 99203 ==

== ENCOUNTER → 2022-08-05 08:33 | Outpatient (BNVA) | payer MEDICAID, SELFPAY | PROVIDERS: PCP Family Medicine; Visit Provider Nurse Practitioner Family | DX: I25.110 Atherosclerotic heart disease of native coronary artery with unstable angina pectoris (principal); I11.0 Hypertensive heart disease with heart failure; I50.30 Unspecified diastolic (congestive) heart failure; Z87.891 Personal history of nicotine dependence; E83.119 Hemochromatosis, unspecified; I87.8 Other specified disorders of veins | CPT/HCPCS: 99213 ==

== ENCOUNTER 2022-08-12 09:56 | Day surgery (SDC) | payer MEDICAID, SELFPAY ==
[2022-08-11 09:34] VITALS: BMI 36.0
[2022-08-12] VITALS (12 sets, daily range): BP systolic 123–177; BP diastolic 79–98; PULSE 75–86; RESP 18; TEMP 36.3–36.8; O2SAT 92–98
--- NOTE | 2022-08-12 10:05 | XRR_ITS ---
PROCEDURE INFORMATION: Exam: XR Chest Exam date and time: 08/12/2022 2:10 PM Age: 57 years old Clinical indication: Device placement; Other: Mediport; Prior surgery; Surgery date: Post-operative (0-2 days); Additional info: Postop mediport TECHNIQUE: Imaging protocol: Radiologic exam of the chest. Views: 1 view. COMPARISON: CR (CHEST, ) 07/17/2022 7:11 PM FINDINGS: Tubes, catheters and devices: A left subclavian central venous access catheter or port is seen, with tip of the catheter at the expected level of the superior vena cava just above the right atrium, appearing in good position. Lungs: No focal infiltrate or consolidation. Pleural spaces: No pneumothorax is seen. Suggestion of small effusion versus mild pleural thickening lateral lower left chest. Heart/Mediastinum: Unremarkable. No cardiomegaly. Bones/joints: Postsurgical hardware within the lower cervical spine. No acute osseous abnormality. XR/XR chest 1V portable [id number] IMPRESSION: 1. Left subclavian central venous access catheter or port (MediPort) appears in good position as noted above without pneumothorax. 2. Suggestion of small effusion versus mild pleural thickening lateral lower left chest, for follow-up.
--- NOTE | 2022-08-12 10:05 | SC_ITS ---
WS: [id number] C-arm fluoroscopy for infusion port placement, 08/12/2022 Clinical Data: Mediport placement Comparison: None. Findings: Dr. Ortiz placed a left infusion port which ends in the superior vena cava. SC/C-arm FL for CVA [id number] Impression: Left infusion port placement.
[2022-08-12] MEDS: sodium chloride 0.9% 1,000 ML 30 ML IV (10:58)
[2022-08-12 11:06] LABS: Basophils % 0.9 %; Eosinophils # 0.1 10^3/uL (0.0-0.8); Eosinophils % 2.1 %; Hematocrit 39.4 % (37.0-47.0); Hemoglobin 13.3 g/dL (11.5-15.3); Lymphocytes # 1.5 10^3/uL (0.8-4.8); Lymphocytes % 33.9 %; Mean Corpuscular HGB Conc 33.8 g/dL (30.0-36.0); Mean Corpuscular Hemoglobin 32.9 pg (28.0-34.0); Mean Corpuscular Volume 97.5 fl (81-99); Mean Platelet Volume 9.5 fL (7.4-10.4); Monocytes # 0.5 10^3/uL (0.2-0.9); Monocytes % 10.3 %; Neutrophils # 2.25 10^3/uL (1.8-7.7); Neutrophils % 51.4 %; Nucleated Red Blood Cells % 0 %; Platelet Count 172 10^3/cmm (130-400); Red Blood Count 4.04 10^6/uL (4.1-5.3); Red Cell Distribution Width 14.6 % (12.1-15.1); White Blood Count 4.4 10^3/uL (4.0-10.0)
[2022-08-12 11:14] LABS: Anion Gap 16.2 (5-19); Blood Urea Nitrogen 16 mg/dL (6-20); Calcium 9.2 mg/dL (8.5-10.5); Carbon Dioxide 25 mmol/L (22-29); Chloride 104 mmol/L (98-107); Creatinine Clr Calc Pharmacy 115.8222; Glucose 94 mg/dL (65-115); Osmolality Calculated 295 mOsm/kg (285-295); Potassium 3.2 mmol/L (3.5-5.1); Sodium 142 mmol/L (136-145)
[2022-08-12] MEDS: fentaNYL 50 mcg/mL INJ 2mL IVP (11:17)
--- NOTE | 2022-08-12 11:41 | P.ANESASSM_ITS ---
Pre-Anesthetic Assessment Height/Weight: Height 1.63 m Weight 95.254 kg Temp Pulse Resp BP Pulse Ox O2 Del Method 97.4 F L 75 18 142/84 95 Room Air 08/12/22 10:19 08/12/22 10:19 08/12/22 10:19 08/12/22 10:19 08/12/22 10:19 08/12/22 10:25 Operation Date: 08/12/22 12:20 Proposed Procedures p 07208 port placement E83.119(Not Applicable) - Curly Ortiz DO Familial anesthetic complications: none Was Beta Steve taken within 24 hours: Yes Was Clonidine taken within 24 hours: N/A Last intake: Intake Last Liquid Date 08/11/22 Last Liquid Time 22:00 Last Solid Date 08/12/22 Last Solid Time 17:00 Social Tobacco and No alcohol Exam alert, oriented x 3 and regular rate & rhythm Airway Submandibular: within normal limits Cervical ROM: within normal limits Mallampati: Class II Dentition: false (upper) Pulmonary Chronic Obstructive Pulmonary Disease CV/HEM Coronary Artery Disease, Congestive Heart Failure, Hypertension and Myocardial Infarction Hepatic Cirrhosis GI Gastroesophageal Reflux Disease Anesthetic Plan ASA status: 3 Anesthesia: Choice Medications/Allergies Home Medications Medication Instructions Recorded Confirmed Last Taken Type bupropion HCl 450 mg 24 hr tablet, 450 mg PO QAM 05/06/22 08/11/22 08/11/22 Hi story extended release fluoxetine 20 mg capsule 20 mg PO QAM 05/06/22 08/11/22 08/11/22 History fluticasone 500 mcg-salmeterol 50 1 inh inhalation BID 05/06/22 08/11/22 08/11/22 History mcg/dose blistr powdr for inhalation (Advair Diskus) lisinopril 40 mg tablet 40 mg PO BID 05/06/22 08/11/22 08/12/22 07:00 History albuterol sulfate 2.5 mg/3 mL 2.5 mg inhalation Q4H PRN 06/10/22 08/11/22 08/11/22 History (0.083 %) solution for nebulization Shortness Of Breath albuterol sulfate 90 mcg/actuation 2 puff inhalation QID PRN 06/10/22 08/05/22 Unknown History aerosol inhaler (Ventolin HFA) Shortness Of Breath aspirin 81 mg tablet,delayed 81 mg PO QAM 06/10/22 08/11/22 08/07/22 History release hydrochlorothiazide 25 mg tablet 25 mg PO QAM 06/10/22 08/11/22 08/12/22 07:00 History hydroxyzine HCl 25 mg tablet 25 - 50 mg PO QID PRN Anxiety 06/10/22 08/11/22 08/12/22 07:00 History carvedilol 25 mg tablet 25 mg PO BID 30 days #60 tabs 06/11/22 08/11/22 08/12/22 07:00 Rx albuterol sulfate 90 mcg/actuation 2 inh inhalation Q4H PRN shortness 06/14/22 08/11/22 08/11/22 Rx aerosol inhaler of breath or wheezing #18 grams ibuprofen 800 mg tablet 800 mg PO TID PRN Pain 06/14/22 08/11/22 08/11/22 History meloxicam 15 mg tablet 15 mg PO DAILY 06/14/22 08/12/22 08/11/22 History bumetanide 1 mg tablet 1 mg PO QAM #90 tabs 06/25/22 08/11/22 08/11/22 Rx nitroglycerin 0.4 mg sublingual 0.4 mg sublingual Q5M PRN chest 06/25/22 08/11/22 Unknown Rx tablet pain #30 tabs potassium chloride 8 mEq 8 meq PO DAILY #30 tabs 06/25/22 08/11/22 08/11/22 Rx tablet,extended release (Klor-Con) ondansetron 4 mg disintegrating 4 mg PO Q6H PRN nausea and 07/17/22 08/11/22 Unknown Rx tablet vomiting #14 tabs pantoprazole 40 mg tablet,delayed 40 mg PO BID 6 weeks #84 tabs 07/22/22 08/11/22 08/11/22 Rx release (Protonix) ticagrelor 90 mg tablet (Brilinta) 90 mg PO BID #180 tabs 08/05/22 08/11/22 08/11/22 Rx Allergies Allergy/AdvReac Type Severity Reaction Status Date / Time ketorolac [From Toradol] Allergy ALGY-Hives Verified 08/05/22 10:29 prochlorperazine Allergy Unknown Verified 08/05/22 10:29 [From Compazine] Current Medications Generic Name Dose Route Start Last Admin Trade Name Leeq PRN Reason Stop Dose Admin Fentanyl 50 mcg 08/12/22 10:05 08/12/22 11:17 Fentanyl 50 Mcg/Ml Inj 2ml IVP 50 mcg Q10M PRN Administration Preop Pain Sodium Chloride 1,000 mls @ 30 mls/hr 08/12/22 10:15 08/12/22 10:58 Sodium Chloride 0.9% IV 08/13/22 10:14 30 mls/hr .Q24H MANOLO Administration PFSH Anesthesia Medical History CAD (coronary artery disease) Cirrhosis COPD (chronic obstructive pulmonary disease) Hemochromatosis Hemochromatosis Hypertension Nocturnal hypoxia NSAID long-term use Smoking addiction Status post chemoradiation Vaginal tumors Surgical History H/O vaginal surgery Hx of appendectomy Hx of colonoscopy with polypectomy 10 yrs ago Family History Denies family history of Colon cancer Ovarian cancer Diabetes Heart disease Hypercholesteremia Breast cancer Hypertension Uterine cancer Thyroid disease Stroke Social History Smoking and tobacco status: former smoker Quit status (tobacco): quit date established Planned quit date: 05/27/22 Alcohol intake: never Substance/Drug Use: never Lives independently: Yes Household members: significant other Marital status: Single Data Anesthesia 08/12/22 10:45 08/12/22 10:45 Short CBC 08/12/22 Range/Units 10:45 WBC 4.4 (4.0-10.0) 10^3/uL Hgb 13.3 (11.5-15.3) g/dL Hct 39.4 (37.0-47.0) % MCV 97.5 (81-99) fl Plt Count 172 (130-400) 10^3/cmm Neut % (Auto) 51.4 % Neut # (Auto) 2.25 (1.8-7.7) 10^3/uL BMP 08/12/22 10:45 Sodium 142 Potassium 3.2 L Chloride 104 Carbon Dioxide 25 BUN 16 Creatinine 0.6 Glucose 94 Calcium 9.2 Cardiac Studies: Echocardiogram 06/10/22
--- NOTE | 2022-08-12 12:34 | W.PM.OPSUD ---
Surgery/Procedure H&P Update DATE OF PROCEDURE: August 12, 2022 DATE H&P PERFORMED: 08/05/22 H&P UPDATE INFORMATION: I have reviewed H&P completed within last 30 days, I have examined patient prior to procedure and No changes to prior documentation PLANNED PROCEDURE: Operation Date: 08/12/22 12:20 Proposed Procedures p 09975 port placement E83.119(Not Applicable) - Curly Ortiz, DO
[2022-08-12] MEDS: ceFAZolin 2,000 MG in sodium chloride 0.9% (plus) 50 ML 100 MG IV (12:45)
[2022-08-12] MEDS: lidocaine-epi 2% 20 mL INJ INJECTION (13:00)
[2022-08-12] MEDS: heparin, porcine 1,000 unit/mL INJ 10 mL 10000 UNIT INJECTION (13:40)
[2022-08-12] MEDS: HYDROmorphone 1 mg/mL INJ 1 mL 0.5 MG IVP (14:07)
--- NOTE | 2022-08-12 14:43 | ANE.PACU2 ---
Inpatient post-anesthesia follow up: Airway intact: Yes Vital signs: Temperature 98.2 F Pulse Rate 76 Respiratory Rate 18 Blood Pressure 148/79 Pulse Oximetry 92 Oxygen Delivery Me thod Room Air Oxygen Flow Rate Fraction of Inspir ed Oxygen Hydration adequate: Yes Nausea and vomiting: No Pain level: 2 Mental status: Baseline
--- NOTE | 2022-08-12 15:01 | P.OP_ITS ---
Operative Report Date of procedure: August 12, 2022 Pre-op diagnosis: Hemochromatosis Post-op diagnosis: same Procedure done: Mediport placement Implants: PowerPort Surgeon: Dr. Curly Ortiz, DO Anesthesia: MAC Estimated blood loss (mL): 5 Complications: None apparent Brief History: Is a very pleasant 57-year-old female with hemochromatosis. Mediport placement was requested. The risk and benefits were explained and documented. Procedure: They put another order I will do right now things the patient was taken to the operating room and placed supine on the operating room table. All bony prominences were padded. She was given IV sedation and monitored throughout the case by the anesthesia personnel. SCDs were placed and turned on. The arms were tucked to the side. Patient received Ancef 2 g preoperatively IV. The bilateral chest wall was prepped and draped in usual sterile fashion using chlorhexidine b ase prep. Sterile drapes were applied. We did procedure pause prior to beginning. An 18 gauge needle was placed in the left subclavian vein. Dark, nonpulsatile blood was aspirated. A guidewire was placed through the needle centrally toward the atrial/vena caval junction. Fluoroscopy visualized good placement. The needle was removed and the guidewire was clipped to the drape with a hemostat. Further local anesthetic was infiltrated in the soft tissues of the left chest wall and a #15 blade was used to make a horizontal skin incision. A subcutaneous Mediport pocket was created using Bovie cautery, dissecting down through the skin and subcutaneous tissues. Meticulous hemostasis was achieved. The Mediport was sutured in position using 3-0 vicryl suture x2 stitches. A #15 blade was used to make a small skin rusty around the guidewire insertion area. The Mediport tubing was tunneled through the subcutaneous tissues up to the needle insertion location. A dilator with a peel-away sheath was placed over the guidewire and placed centrally. After measuring the Mediport tubing was cut to length so that the tip would end at the atrial/vena caval junction. The inner cannula and the guidewire were removed, leaving the dilator sheath in place. The Mediport was flushed. The tip of the catheter was inserted through the peel-away sheath and the peel-away sheath removed in the standard fashion. The Mediport was accessed with a straight Eisenberg needle and dark, nonpulsatile blood was aspirated and flushed using heparinized saline to hep-lock the Mediport. Final fluoroscopy visualization showed no kink in the catheter and the tip of the Mediport tubing near the atrial/vena caval junction. Both skin incisions were thoroughly irrigated and suctioned dry. Meticulous hemostasis noted. The dermis was approximated with 3-0 Vicryl in an interrupted fashion. Skin was closed with Dermabond. Patient was awakened from anesthesia and transferred via her cart to the recovery room in stable condition. All needle, sponge, and instrument counts were correct per the operating personnel x2 counts.
== END 2022-08-12 15:25 | disposition home or self-care (01) ==
PROVIDERS: Anesthesiology; PCP Family Medicine; Visit Provider Surgery
PROC: (CPT 36561; principal; 2022-08-12 12:00)
DX: E83.119 Hemochromatosis, unspecified (principal); J44.9 Chronic obstructive pulmonary disease, unspecified; I25.10 Atherosclerotic heart disease of native coronary artery without angina pectoris; I50.9 Heart failure, unspecified; I10 Essential (primary) hypertension; I25.2 Old myocardial infarction; K21.9 Gastro-esophageal reflux disease without esophagitis; K74.60 Unspecified cirrhosis of liver; Z79.82 Long term (current) use of aspirin; Z87.891 Personal history of nicotine dependence
CPT/HCPCS: 36561; 36415; 71045; 76000; 77001; 80048; 85025; C1788; J0690; J1170; J1644; J2704; J3010; J3490; J7030

== ENCOUNTER 2022-08-14 13:30 | Oncology outpatient (recurring) (ONCR) | payer MEDICAID, SELFPAY ==
[2022-07-31 12:01] LABS: Basophils % 0.7 %; Eosinophils # 0.1 10^3/uL (0.0-0.8); Eosinophils % 1.9 %; Hematocrit 43.9 % (37.0-47.0); Hemoglobin 14.8 g/dL (11.5-15.3); Lymphocytes # 1.6 10^3/uL (0.8-4.8); Lymphocytes % 27.9 %; Mean Corpuscular HGB Conc 33.7 g/dL (30.0-36.0); Mean Corpuscular Hemoglobin 33.4 pg (28.0-34.0); Mean Corpuscular Volume 99.1 fl (81-99); Mean Platelet Volume 9.2 fL (7.4-10.4); Monocytes # 0.6 10^3/uL (0.2-0.9); Monocytes % 9.7 %; Neutrophils # 3.46 10^3/uL (1.8-7.7); Neutrophils % 59.1 %; Nucleated Red Blood Cells % 0 %; Platelet Count 149 10^3/cmm (130-400); Red Blood Count 4.43 10^6/uL (4.1-5.3); Red Cell Distribution Width 14.1 % (12.1-15.1); White Blood Count 5.9 10^3/uL (4.0-10.0)
[2022-07-31 12:34] LABS: Ferritin 321 ng/mL (15-150)
[2022-08-05 14:15] VITALS: BP 105/64; PULSE 71; RESP 18; TEMP 36.6; O2SAT 98
[2022-08-14 13:58] LABS: Basophils % 0.6 %; Eosinophils # 0.1 10^3/uL (0.0-0.8); Hematocrit 39.8 % (37.0-47.0); Hemoglobin 13.5 g/dL (11.5-15.3); Lymphocytes # 1.3 10^3/uL (0.8-4.8); Lymphocytes % 25.6 %; Mean Corpuscular HGB Conc 33.9 g/dL (30.0-36.0); Mean Corpuscular Hemoglobin 32.8 pg (28.0-34.0); Mean Corpuscular Volume 96.8 fl (81-99); Mean Platelet Volume 9.3 fL (7.4-10.4); Monocytes # 0.4 10^3/uL (0.2-0.9); Neutrophils # 3.02 10^3/uL (1.8-7.7); Nucleated Red Blood Cells % 0 %; Platelet Count 172 10^3/cmm (130-400); Red Blood Count 4.11 10^6/uL (4.1-5.3); Red Cell Distribution Width 14.4 % (12.1-15.1); White Blood Count 4.9 10^3/uL (4.0-10.0)
[2022-08-14 14:15] LABS: Ferritin 440 ng/mL (15-150)
[2022-08-14] MEDS: sodium chloride 0.9% 250 ML 999 ML IV (14:53)
[2022-08-14 15:27] VITALS: BP 130/65; PULSE 73; RESP 16; TEMP 36.4; O2SAT 95
== END 2022-08-20 23:59 | disposition home or self-care (01) ==
PROVIDERS: PCP Family Medicine; Visit Provider Internal Medicine Hematology & Oncology
DX: E83.119 Hemochromatosis, unspecified (principal)
CPT/HCPCS: 36415; 82728; 85025; 99195; 99214; J7050

== ENCOUNTER → 2022-09-02 08:11 | Outpatient (BNVA) | payer MEDICAID, SELFPAY | PROVIDERS: PCP Family Medicine; Visit Provider Nurse Practitioner Family | DX: I11.0 Hypertensive heart disease with heart failure (principal); I50.30 Unspecified diastolic (congestive) heart failure; I25.110 Atherosclerotic heart disease of native coronary artery with unstable angina pectoris; Z87.891 Personal history of nicotine dependence; Z79.82 Long term (current) use of aspirin | CPT/HCPCS: 99214 ==

== ENCOUNTER → 2022-09-17 13:43 | Outpatient (BNVA) | payer MEDICAID, SELFPAY | PROVIDERS: PCP Family Medicine; Visit Provider Surgery | DX: Z85.3 Personal history of malignant neoplasm of breast (principal); I87.8 Other specified disorders of veins; Z95.828 Presence of other vascular implants and grafts | CPT/HCPCS: 99213 ==

== ENCOUNTER 2022-09-18 10:18 | Day surgery (SDC) | payer MEDICAID, SELFPAY ==
[2022-09-17 15:45] VITALS: BMI 34.4
[2022-09-18] VITALS (9 sets, daily range): BP systolic 131–156; BP diastolic 76–90; PULSE 63–87; RESP 15–20; TEMP 36.1–36.7; O2SAT 90–97
--- NOTE | 2022-09-18 10:28 | SC_ITS ---
WS: [id number] Exam: C-arm FL for CVA [id number] Date/Time of Exam: 09/18/2022 10:28 AM Reason For Exam: Mediport placement Limited anterior-posterior C-arm image of the central and right chest submitted. The image depicts a right-sided Chemo-Port appears to extend into the expected region of the right atrium. The image was obtained for intraoperative visualization.
--- NOTE | 2022-09-18 10:28 | XR_ITS ---
WS: [id number] Exam: XR chest 1V portable [id number] Date/Time of Exam: 09/18/2022 1:21 PM Reason For Exam: Postop Mediport placement Comparison 07/17/2022. A right-sided Chemo-Port has been placed and ends at the cavoatrial junction. The lungs are clear and fully inflated. Heart size top limits normal. No pleural effusions. Scattered calcified granulomas i n both lungs. Bony structures are intact. Fusion hardware in the lower C-spine. XR/XR chest 1V portable [id number] IMPRESSION: 1. Right-sided port ending at the cavoatrial junction. 2. No acute cardiopulmonary process.
[2022-09-18] MEDS: sodium chloride 0.9% 1,000 ML 30 ML IV (10:53)
--- NOTE | 2022-09-18 10:55 | P.ANESASSM_ITS ---
Pre-Anesthetic Assessment Height/Weight: Height 1.63 m Weight 91.172 kg Temp Pulse Resp BP Pulse Ox O2 Del Method 97.6 F 63 15 140/79 96 Room Air 09/18/22 10:44 09/18/22 10:44 09/18/22 10:44 09/18/22 10:44 09/18/22 10:44 09/18/22 10:44 Operation Date: 09/18/22 12:40 Proposed Procedures p [id number] port removal and port placement Z95.828 Z85.3(Not Applicable) - [place] s [id number] port removal and port placement Z95.828 Z85.3(Not Applicable) - Curly Ortiz DO Familial anesthetic complications: None Was Beta Steve taken within 24 hours: N/A Was Clonidine taken within 24 hours: N/A Last intake: Intake Last Liquid Date 09/17/22 Last Liquid Time 20:00 Last Solid Date 09/17/22 Last Solid Time 20:00 Social Tobacco and No alcohol Exam alert, oriented x 3, clear to auscultation bilaterally and regular rate & rhythm Airway Dentition: false Pulmonary Chronic Obstructive Pulmonary Disease CV/HEM Coronary Artery Disease, Congestive Heart Failure and Myocardial Infarction (X2 (6 stents total)) Date of Service: 06/10/22 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 1. 56-year-old white female with a history of coronary disease, status post myocardial infarction, status post multiple PCI's, presenting with prolonged episode of chest pain. EKG revealing diffuse nonspecific ST-T changes, appeared to be new. In view of the patient's clinical presentation and the ongoing symptoms, in order to further evaluate her coronary status, a cardiac catheterization was recommended. Patient underwent left heart catheterization with left and right coronary angiogram today. The findings are as follows.. ? 2. Patent stented segments of the proximal LAD, proximal, mid and distal RCA.? 60% narrowing at the ostium of the circumflex artery.? Minimal intimal irregularities in the other vessels.? Relatively small caliber RV branch of the right coronary artery was found to have a high-grade stenosis proximally. LVEDP of 25 mmHg. ? 3. Based on the angiogram findings, it does not be appropriate to consider IFR of the ostial circumflex lesion.? I discussed and reviewed the angiogram findings with Dr. Escalante.? Dr. Escalante concurred with this plan and took over further management of this patient at this point. . ? 4. Nonischemic FFR value 0.91 was obtained. Recommendations ? * Aggressive risk factor modification. ? * Outpatient cardiology follow-up in 4 weeks. Date of Service: 06/10/22 Procedure(s): CV. echo complete* [id number] ?CONCLUSIONS ?Normal left ventricular size and systolic function, EF 62 %. No ?regional wall motion abnormalities. Grade I/IV diastolic ?dysfunction (abnormal relaxation filling pattern), normal to?mildly elevated filling pressures. ?Possibly normal chamber sizes. ?No significant valvular lesions. ?There is no pericardial effusion. ?Technically somewhat difficult study because of the poor?ultrasonic window. ?No similar previous studies are available for comparison ?Dr Ivis Drake MD [facility]? ?(Electronically Signed) Hepatic Cirrhosis Anesthetic Plan ASA status: 3 Anesthesia: MAC Risk of > 500 ml blood loss (7ml/kg in children): No Medications/Allergies Home Medications Medication Instructions Recorded Confirmed Last Taken Type bupropion HCl 450 mg 24 hr tablet, 450 mg PO QAM 05/06/22 09/17/22 09/17/22 History extended release fluoxetine 20 mg capsule 20 mg PO QAM 05/06/22 09/17/22 09/17/22 History fluticasone 500 mcg-salmeterol 50 1 inh inhalation BID 05/06/22 09/17/22 09/17/22 History mcg/dose blistr powdr for inhalation (Advair Diskus) lisinopril 40 mg tablet 40 mg PO BID 05/06/22 09/18/22 09/18/22 History albuterol sulfate 2.5 mg/3 mL 2.5 mg inhalation Q4H PRN 06/10/22 09/17/22 09/16/22 History (0.083 %) solution for nebulization Shortness Of Breath albuterol sulfate 90 mcg/actuation 2 puff inhalation QID PRN 06/10/22 09/17/22 09/16/22 History aerosol inhaler (Ventolin HFA) Shortness Of Breath aspirin 81 mg tablet,delayed 81 mg PO QAM 06/10/22 09/17/22 09/13/22 History release hydroxyzine HCl 25 mg tablet 25 - 50 mg PO QID PRN Anxiety 06/10/22 09/17/22 09/17/22 History carvedilol 25 mg tablet 25 mg PO BID 30 days #60 tabs 06/11/22 09/18/22 09/18/22 Rx albuterol sulfate 90 mcg/actuation 2 inh inhalation Q4H PRN shortness 06/14/22 09/17/22 09/16/22 Rx aerosol inhaler of breath or wheezing #18 grams ibuprofen 800 mg tablet 800 mg PO TID PRN Pain 06/14/22 09/17/22 09/17/22 History meloxicam 15 mg tablet 15 mg PO DAILY 06/14/22 09/17/22 09/17/22 History bumetanide 1 mg tablet 1 mg PO QAM #90 tabs 06/25/22 09/18/22 09/17/22 Rx nitroglycerin 0.4 mg sublingual 0.4 mg sublingual Q5M PRN chest 06/25/22 09/17/22 Unknown Rx tablet pain #30 tabs potassium chloride 8 mEq 8 meq PO DAILY #30 tabs 06/25/22 09/17/22 09/17/22 Rx tablet,extended release (Klor-Con) ondansetron 4 mg disintegrating 4 mg PO Q6H PRN nausea and 07/17/22 09/17/22 Unknown Rx tablet vomiting #14 tabs pantoprazole 40 mg tablet,delayed 40 mg PO BID 6 weeks #84 tabs 07/22/22 09/17/22 09/17/22 Rx release (Protonix) ticagrelor 90 mg tablet (Brilinta) 90 mg PO BID #180 tabs 08/05/22 09/17/22 09/13/22 Rx docusate sodium 100 mg capsule 100 mg PO BID #14 caps 08/12/22 09/17/22 09/17/22 Rx (Colace) lidocaine-prilocaine 2.5 %-2.5 % 1 applic topical ONCE #30 grams 08/27/22 09/17/22 Unknown Rx topical cream hydrochlorothiazide 25 mg tablet 25 mg PO BID 09/02/22 09/17/22 09/17/22 History brexpiprazole 0.5 mg tablet 0.5 mg PO DAILY 09/18/22 09/18/22 09/18/22 History (Rexulti) Allergies Allergy/AdvReac Type Severity Reaction Status Date / Time ketorolac [From Toradol] Allergy ALGY-Hives Verified 09/18/22 10:35 prochlorperazine Allergy Unknown Verified 09/18/22 10:35 [From Compazine] Current Medications Generic Name Dose Route Start Last Admin Trade Name Freq PRN Reason Stop Dose Admin Sodium Chloride 1,000 mls @ 30 mls/hr 09/18/22 10:30 09/18/22 10:53 Sodium Chloride 0.9% IV 09/19/22 10:29 30 mls/hr .Q24H MANOLO Administration PFSH Anesthesia Medical History CAD (coronary artery disease) Cirrhosis COPD (chronic obstructive pulmonary disease) Hemochromatosis Hemochromatosis Hypertension Nocturnal hypoxia NSAID long-term use Smoking addiction Status post chemoradiation Vaginal tumors Surgical History H/O vaginal surgery Hx of appendectomy Hx of colonoscopy with polypectomy 10 yrs ago Family History Denies family history of Colon cancer Ovarian cancer Diabetes Heart disease Hypercholesteremia Breast cancer Hypertension Uterine cancer Thyroid disease Stroke Social History Smoking and tobacco status: former smoker Quit status (tobacco): quit date established Planned quit date: 05/27/22 Alcohol intake: never Substance/Drug Use: never Lives independently: Yes Household members: significant other Marital status: Single Data Anesthesia Cardiac Studies: Echocardiogram 06/10/22
--- NOTE | 2022-09-18 11:07 | W.PM.OPSUD ---
Surgery/Procedure H&P Update DATE OF PROCEDURE: September 18, 2022 DATE H&P PERFORMED: 09/17/22 H&P UPDATE INFORMATION: I have reviewed H&P completed within last 30 days, I have examined patient prior to procedure and No changes to prior documentation PLANNED PROCEDURE: Operation Date: 09/18/22 12:40 Proposed Procedures p [id number] [id number] port removal and port placement Z95.828 Z85.3(Not Applicable) - [place] s [id number] port removal and port placement Z95.828 Z85.3(Not Applicable) - Curly Ortiz DO
[2022-09-18] MEDS: fentaNYL 50 mcg/mL INJ 2mL IVP ×2 (11:25→13:46)
[2022-09-18] MEDS: ceFAZolin 2,000 MG in sodium chloride 0.9% (plus) 50 ML 100 MG IV (12:52)
[2022-09-18] MEDS: lidocaine-epi 2% 20 mL INJ INJECTION (13:18)
[2022-09-18] MEDS: heparin, porcine 1,000 unit/mL INJ 10 mL 10000 UNIT IRRIGATION (13:19)
[2022-09-18] MEDS: sodium chloride 0.9% 100 mL Bag XX (13:19)
--- NOTE | 2022-09-18 13:35 | P.OP_ITS ---
Operative Report Date of procedure: September 18, 2022 Pre-op diagnosis: Mediport malfunction Post-op diagnosis: same Procedure done: Mediport removal Mediport placement Implants: PowerPort Specimens removed/disposition: PowerPort Surgeon: Dr. Curly Ortiz, DO Anesthesia: MAC Estimated blood loss (mL): 5 Complications: None apparent Brief History: This is a very pleasant 57-year-old female with hemochromatosis. She had a Mediport placed in her left subclavian vein that was not drawing off sufficient blood for her therapy. She desired removal and replacement. The risk and benefits were explained and documented. Procedure: Patient was wheeled in operative room placed on the OR table in supine position. The chest was inspected prepped and draped in usual sterile fashion. A timeout was performed. All present were in agreement. 2% lidocaine with epinephrine was used to anesthetize the skin over the previous Mediport. The old incision was then opened using a 15 blade scalpel. Hemostats were used to remove the previous Mediport. A [id number] stitch was placed over the catheter track. This was done with a 3-0 Vicryl. The dermis was then approximated with 3-0 Vicryl in an interrupted fashion. Skin glue was applied. Attention was then brought to Mediport placement on the other side. After localization, an 18 gauge needle was placed in the right internal jugular vein under ultrasound guidance. Dark, nonpulsatile blood was aspirated. A guidewire was placed through the needle centrally toward the atrial/vena caval junction. Fluoroscopy visualized good placement. The needle was removed and the guidewire was clipped to the drape with a hemostat. Further local anesthetic was infiltrated in the soft tissues of the right chest wall and a #15 blade was used to make a horizontal skin incision. A subcutaneous Mediport pocket was created using Bovie cautery, dissecting down through the skin and subcutaneous tissues. Meticulous hemostasis was achieved. The Mediport was sutured in position using 3-0 vicryl suture x3 stitches. A #15 blade was used to make a small skin rusty around the guidewire insertion area. The Mediport tubing was tunneled through the subcutaneous tissues up to the needle insertion location. A dilator with a peel-away sheath was placed over the guidewire and placed centrally. After measuring the Mediport tubing was cut to length so that the tip would end at the atrial/vena caval junction. The inner cannula and the guidewire were removed, leaving the dilator sheath in place. The Mediport was flushed. The tip of the catheter was inserted through the peel-away sheath and the peel-away sheath removed in the standard fashion. The Mediport was accessed with a straight Eisenberg needle and dark, nonpulsatile blood was aspirated and flushed using heparinized saline to hep-lock the Mediport. Final fluoroscopy visualization showed no kink in the catheter and the tip of the Mediport tubing near the atrial/vena caval junction. Both skin incisions were thoroughly irrigated and suctioned dry. Meticulous hemo stasis noted. The dermis was approximated with 3-0 Vicryl in an interrupted fashion. Skin was closed with Dermabond. Patient was awakened from anesthesia and transferred via her cart to the recover y room in stable condition. All needle, sponge, and instrument counts were correct per the operating personnel x2 counts.
--- NOTE | 2022-09-18 14:16 | ANE.PACU2 ---
Inpatient post-anesthesia follow up: Airway intact: Yes Vital signs: Temperature 98 F Pulse Rate 87 Respiratory Rate 15 Blood Pressure 156/86 Pulse Oximetry 94 Oxygen Delivery Me thod Room Air Oxygen Flow Rate 6 Fraction of Inspir ed Oxygen Hydration adequate: Yes Nausea and vomiting: No Pain level: 1 Mental status: Baseline
== END 2022-09-18 14:25 | disposition home or self-care (01) ==
PROVIDERS: PCP Family Medicine; Visit Provider Surgery
PROC: (CPT 36589; principal; 2022-09-18 12:30)
PROC: (CPT 36561; 2022-09-18 12:30)
DX: Z95.828 Presence of other vascular implants and grafts (principal); J44.9 Chronic obstructive pulmonary disease, unspecified; I25.10 Atherosclerotic heart disease of native coronary artery without angina pectoris; I50.9 Heart failure, unspecified; Z79.82 Long term (current) use of aspirin; K74.60 Unspecified cirrhosis of liver; I11.0 Hypertensive heart disease with heart failure; Z92.21 Personal history of antineoplastic chemotherapy; E83.119 Hemochromatosis, unspecified; T82.898A Other specified complication of vascular prosthetic devices, implants and grafts, initial encounter; Y82.8 Other medical devices associated with adverse incidents
CPT/HCPCS: 36561; 36590; 71045; 77001; C1788; J0690; J1644; J2704; J3010; J3490; J7030

== ENCOUNTER 2022-09-18 11:00 | Oncology outpatient (recurring) (ONCR) | payer MEDICAID, SELFPAY ==
[2022-08-27 11:30] VITALS: BP 108/68; PULSE 63; RESP 18; TEMP 36.5; O2SAT 97
[2022-08-27 11:51] LABS: Basophils # 0.1 10^3/uL (0.0-0.1); Eosinophils # 0.1 10^3/uL (0.0-0.8); Eosinophils % 2.1 %; Hematocrit 36.6 % (37.0-47.0); Hemoglobin 12.3 g/dL (11.5-15.3); Lymphocytes # 1.7 10^3/uL (0.8-4.8); Mean Corpuscular HGB Conc 33.6 g/dL (30.0-36.0); Mean Corpuscular Hemoglobin 32.1 pg (28.0-34.0); Mean Corpuscular Volume 95.6 fl (81-99); Mean Platelet Volume 9.8 fL (7.4-10.4); Monocytes # 0.6 10^3/uL (0.2-0.9); Monocytes % 11.7 %; Neutrophils # 2.64 10^3/uL (1.8-7.7); Neutrophils % 51.6 %; Nucleated Red Blood Cells % 0 %; Platelet Count 172 10^3/cmm (130-400); Red Blood Count 3.83 10^6/uL (4.1-5.3); Red Cell Distribution Width 15.3 % (12.1-15.1); White Blood Count 5.1 10^3/uL (4.0-10.0)
[2022-08-27 12:02] LABS: Ferritin 427 ng/mL (15-150)
[2022-08-28 15:08] VITALS: BP 144/73; PULSE 60; RESP 20; O2SAT 97
[2022-08-28] MEDS: sodium chloride 0.9% 250 ML IV (15:09)
[2022-08-28 15:35] VITALS: BP 147/76; PULSE 72; RESP 18; TEMP 36.5; O2SAT 99
[2022-09-11 08:24] VITALS: BP 152/83; PULSE 84; RESP 18; TEMP 36.1; O2SAT 97
[2022-09-11 09:04] LABS: Basophils % 0.6 %; Eosinophils # 0.1 10^3/uL (0.0-0.8); Eosinophils % 1.8 %; Hematocrit 40.8 % (37.0-47.0); Hemoglobin 13.2 g/dL (11.5-15.3); Lymphocytes # 1.1 10^3/uL (0.8-4.8); Lymphocytes % 21.3 %; Mean Corpuscular HGB Conc 32.4 g/dL (30.0-36.0); Mean Corpuscular Hemoglobin 32.7 pg (28.0-34.0); Mean Platelet Volume 10.8 fL (7.4-10.4); Monocytes # 0.5 10^3/uL (0.2-0.9); Monocytes % 10.5 %; Neutrophils # 3.24 10^3/uL (1.8-7.7); Neutrophils % 65.2 %; Nucleated Red Blood Cells % 0 %; Platelet Count 144 10^3/cmm (130-400); Red Blood Count 4.04 10^6/uL (4.1-5.3); Red Cell Distribution Width 17.3 % (12.1-15.1)
[2022-09-11 09:10] LABS: Ferritin 224 ng/mL (15-150)
== END 2022-09-19 23:59 | disposition home or self-care (01) ==
PROVIDERS: Nurse Practitioner Family; PCP Family Medicine; Visit Provider Internal Medicine Hematology & Oncology
DX: Z53.9 Procedure and treatment not carried out, unspecified reason (principal)
CPT/HCPCS: 36415; 82728; 85025; 99195; 99214; J7050

== ENCOUNTER → 2022-09-29 09:27 | Outpatient (BNVA) | payer MEDICAID, SELFPAY | PROVIDERS: PCP Family Medicine; Visit Provider Internal Medicine Cardiovascular Disease | DX: I25.110 Atherosclerotic heart disease of native coronary artery with unstable angina pectoris (principal); I11.0 Hypertensive heart disease with heart failure; I50.30 Unspecified diastolic (congestive) heart failure; R42 Dizziness and giddiness; E78.5 Hyperlipidemia, unspecified; Z87.891 Personal history of nicotine dependence; E83.119 Hemochromatosis, unspecified | CPT/HCPCS: 36415; 80048; 83880; 85025; 93225; 99214 ==

== ENCOUNTER 2022-10-16 08:30 | Oncology outpatient (recurring) (ONCR) | payer MEDICAID, SELFPAY ==
[2022-09-25 09:03] VITALS: BP 161/92; PULSE 94; RESP 18; TEMP 36.9; O2SAT 97
[2022-09-25 09:16] LABS: Basophils % 0.6 %; Eosinophils # 0.1 10^3/uL (0.0-0.8); Eosinophils % 1.4 %; Hematocrit 45.4 % (37.0-47.0); Hemoglobin 15.2 g/dL (11.5-15.3); Lymphocytes # 1.3 10^3/uL (0.8-4.8); Mean Corpuscular HGB Conc 33.5 g/dL (30.0-36.0); Mean Corpuscular Hemoglobin 33.1 pg (28.0-34.0); Mean Corpuscular Volume 98.9 fl (81-99); Mean Platelet Volume 8.9 fL (7.4-10.4); Monocytes # 0.4 10^3/uL (0.2-0.9); Monocytes % 8.5 %; Neutrophils # 3.22 10^3/uL (1.8-7.7); Neutrophils % 64.1 %; Nucleated Red Blood Cells % 0 %; Platelet Count 155 10^3/cmm (130-400); Red Blood Count 4.59 10^6/uL (4.1-5.3); Red Cell Distribution Width 16.2 % (12.1-15.1)
[2022-09-25 13:57] LABS: Ferritin 221 ng/mL (15-150)
[2022-09-25 14:03] VITALS: BP 115/75; PULSE 67; O2SAT 93
[2022-10-13 11:38] VITALS: BP 123/79; PULSE 74; RESP 18; TEMP 35.9; O2SAT 95
[2022-10-13 11:55] LABS: Basophils # 0.1 10^3/uL (0.0-0.1); Basophils % 0.9 %; Eosinophils # 0.1 10^3/uL (0.0-0.8); Eosinophils % 2.1 %; Hematocrit 40.3 % (37.0-47.0); Hemoglobin 13.6 g/dL (11.5-15.3); Lymphocytes # 1.4 10^3/uL (0.8-4.8); Lymphocytes % 24.7 %; Mean Corpuscular HGB Conc 33.7 g/dL (30.0-36.0); Mean Corpuscular Hemoglobin 33.6 pg (28.0-34.0); Mean Corpuscular Volume 99.5 fl (81-99); Mean Platelet Volume 10.2 fL (7.4-10.4); Monocytes # 0.4 10^3/uL (0.2-0.9); Monocytes % 7.6 %; Neutrophils % 64.2 %; Nucleated Red Blood Cells % 0 %; Platelet Count 206 10^3/cmm (130-400); Red Blood Count 4.05 10^6/uL (4.1-5.3); Red Cell Distribution Width 15.6 % (12.1-15.1); White Blood Count 5.8 10^3/uL (4.0-10.0)
[2022-10-14 11:46] LABS: Alanine Aminotransferase 16 U/L (0-33); Albumin Level 3.8 g/dL (3.5-5.2); Alkaline Phosphatase 98 U/L (35-105); Anion Gap 13.3 (5-19); Aspartate Amino Transferase 14 U/L (0-32); Blood Urea Nitrogen 24 mg/dL (6-20); Calcium 9.5 mg/dL (8.5-10.5); Carbon Dioxide 25 mmol/L (22-29); Chloride 108 mmol/L (98-107); Globulin 3.1 g/dL (1.3-4.6); Glomerular Filtration Rate 73.9 mL/min (90-130); Glucose 110 mg/dL (65-115); Osmolality Calculated 301 mOsm/kg (285-295); Potassium 3.3 mmol/L (3.5-5.1); Sodium 143 mmol/L (136-145); Total Bilirubin 0.2 mg/dL (0.15-1.2); Total Protein 6.9 g/dL (6.6-8.7)
[2022-10-14 12:37] LABS: Ferritin 140 ng/mL (15-150)
[2022-10-14 13:42] LABS: Add Urine Culture? No; Add Urine Microscopic? YES; Bacteria Urine 1+ /hpf; Bilirubin Urine Neg (Negative); Blood Urine Neg (Negative); Glucose Urine UA Norm (Normal); Ketones Urine Negative (Negative); Leukocyte Esterase Urine Trace (Negative); Nitrate Urine Negative (Negative); Protein Urine Neg (Negative); RBC Urine 0-4 /hpf (0-2); Squamous Epithelial Cell Urine 0-4 /hpf (0-5); Urine Appearance Clear (CLEAR); Urine Color Yellow (Yellow); Urobilinogen Urine Norm (Negative); pH Urine 5 (5-7)
== END 2022-10-20 23:59 | disposition home or self-care (01) ==
PROVIDERS: Nurse Practitioner Family; PCP Family Medicine; Visit Provider Internal Medicine Hematology & Oncology
DX: Z53.9 Procedure and treatment not carried out, unspecified reason (principal)
CPT/HCPCS: 36415; 80053; 81001; 82728; 85025; 99195; 99214

== ENCOUNTER 2022-10-21 21:28 | Emergency (ER) | payer MEDICAID, SELFPAY ==
[2022-10-21 21:37] VITALS: BP 121/72; PULSE 57; RESP 14; TEMP 36.8; O2SAT 97; BMI 32.9
[2022-10-21 22:05] LABS: Basophils % 0.5 %; Eosinophils # 0.1 10^3/uL (0.0-0.8); Eosinophils % 1.6 %; Hematocrit 40.7 % (37.0-47.0); Hemoglobin 13.5 g/dL (11.5-15.3); Lymphocytes # 1.1 10^3/uL (0.8-4.8); Lymphocytes % 14.1 %; Mean Corpuscular HGB Conc 33.2 g/dL (30.0-36.0); Mean Corpuscular Hemoglobin 33.7 pg (28.0-34.0); Mean Corpuscular Volume 101.5 fl (81-99); Mean Platelet Volume 9.9 fL (7.4-10.4); Monocytes # 0.5 10^3/uL (0.2-0.9); Monocytes % 6.3 %; Neutrophils # 5.73 10^3/uL (1.8-7.7); Neutrophils % 76.8 %; Nucleated Red Blood Cells % 0 %; Platelet Count 182 10^3/cmm (130-400); Red Blood Count 4.01 10^6/uL (4.1-5.3); Red Cell Distribution Width 15.6 % (12.1-15.1); White Blood Count 7.5 10^3/uL (4.0-10.0)
[2022-10-21 22:26] LABS: Alanine Aminotransferase 56 U/L (0-33); Albumin Level 3.9 g/dL (3.5-5.2); Alkaline Phosphatase 111 U/L (35-105); Anion Gap 13.3 (5-19); Aspartate Amino Transferase 47 U/L (0-32); Blood Urea Nitrogen 23 mg/dL (6-20); Calcium 9.1 mg/dL (8.5-10.5); Carbon Dioxide 26 mmol/L (22-29); Chloride 108 mmol/L (98-107); Globulin 3.1 g/dL (1.3-4.6); Glomerular Filtration Rate 64.5 mL/min (90-130); Glucose 162 mg/dL (65-115); Osmolality Calculated 305 mOsm/kg (285-295); Potassium 3.3 mmol/L (3.5-5.1); Sodium 144 mmol/L (136-145); Total Bilirubin 0.2 mg/dL (0.15-1.2)
--- NOTE | 2022-10-21 22:31 | ECG_ITS ---
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 Measurements Intervals [place] Rate: 53 P: 78 WV: 168 QRS: 80 QRSD: 86 T: -12 QT: 421 QTc: 397 Interpretive Statements SINUS BRADYCARDIA NONSPECIFIC ST & T-WAVE ABNORMALITY Compared to ECG 07/17/2022 20:21:36 Sinus rhythm no longer present Possible ischemia no longer present T-wave abnormality still present Electronically Signed On 10-22-2022 23:21:04 CDT by Ivis Drake M.D. [id number]
--- NOTE | 2022-10-21 22:32 | CTR_ITS ---
PROCEDURE INFORMATION: Exam: CT Head Without Contrast Exam date and time: 10/21/2022 10:43 PM Age: 57 years old Clinical indication: Injury or trauma; Fall; Blunt trauma (contusions or hematomas) and laceration; Consciousness not specified; Without residual foreign body; Face; Injury details: PT refused to remove ear piercings TECHNIQUE: Imaging protocol: Computed tomography of the head without contrast. Radiation optimization: All CT scans at this facility use at least one of these dose optimization techniques: automated exposure control; mA and/or kV adjustment per patient size (includes targeted exams where dose is matched to clinical indication); or iterative reconstruction. REPORTING DATA: Count of CT and Cardiac NM exams in prior 12 months: This patient has received 3 known CTs and 0 known cardiac nuclear medicine studies in the 12 months prior to the current study. COMPARISON: No relevant prior studies available. RADIATION DOSE METRICS: Total DLP (mGy-cm): 1176.88 FINDINGS: Brain: Bilateral chronic appearing basal ganglia lacunar infarcts. Cerebral ventricles: No ventriculomegaly. Paranasal sinuses: Visualized sinuses are unremarkable. No fluid levels. Mastoid air cells: Visualized mastoid air cells are well aerated. Bones/joints: Unremarkable. No acute fracture. Soft tissues: Unremarkable. CT/CT head wo con* [id number] IMPRESSION: Negative for intracranial hemorrhage or mass effect.
--- NOTE | 2022-10-21 22:32 | CTR_ITS ---
PROCEDURE INFORMATION: Exam: CT Maxillofacial Without Contrast Exam date and time: 10/21/2022 10:46 PM Age: 57 years old Clinical indication: Pain and injury or trauma; Fall; Face pain; Blunt trauma (contusions or hematomas) and laceration; Nose; Without residual foreign body; Patient HX: PT refused to remove piercings TECHNIQUE: Imaging protocol: Computed tomography of the face without contrast. Radiation optimization: All CT scans at this facility use at least one of these dose optimization techniques: automated exposure control; mA and/or kV adjustment per patient size (includes targeted exams where dose is matched to clinical indication); or iterative reconstruction. REPORTING DATA: Count of CT and Cardiac NM exams in prior 12 months: This patient has received 3 known CTs and 0 known cardiac nuclear medicine studies in the 12 months prior to the current study. COMPARISON: CT head wo con* [id number] 10/21/2022 10:43 PM RADIATION DOSE METRICS: Total DLP (mGy-cm): 646.98 FINDINGS: Orbital cavities: Orbits are normal. Globes are unremarkable. Bones/joints: No acute fracture. Paranasal sinuses: Normal. No air-fluid levels. Soft tissues: Unremarkable. CT/CT facial bones wo con* [id number] IMPRESSION: No acute findings.
--- NOTE | 2022-10-21 22:33 | XRR_ITS ---
PROCEDURE INFORMATION: Exam: XR Chest Exam date and time: 10/21/2022 10:38 PM Age: 57 years old Clinical indication: Cough; Additional info: Fall TECHNIQUE: Imaging protocol: Radiologic exam of the chest. Views: 1 view. COMPARISON: CR XR chest 1V portable [id number] 09/18/2022 2:06 PM FINDINGS: Tubes, catheters and devices: Right-sided Port-A-Cath. Lungs: Unremarkable. No consolidation. Pleural spaces: Unremarkable. No pleural effusion. No pneumothorax. Heart/Mediastinum: Cardiomegaly. Bones/joints: Unremarkable. XR/XR chest 1V portable [id number] IMPRESSION: Cardiomegaly, negative for infiltrate.
--- NOTE | 2022-10-21 22:37 | W.ED.FALL ---
HPI - Fall General: Chief Complaint: Fall Stated Complaint: Passed Out hit bed\Hurt Knee and Face Time Seen by Provider: 10/21/22 22:23 Source: patient Mode of arrival: ambulatory Limitations: no limitations History of Present Illness: 57-year-old female states that this evening she been having some slight chest pain states she then got dizzy and passed out. She states she passed out she did hit her head she is on blood thinners she has a inner lower lip laceration she does have a headache along with some facial pain. States she has some mild chest pain she rates a 2 out of 10 denies any shortness of breath currently no vomiting or diarrhea. Associated symptoms-after fall: Reports chest pain and headache(s); Denies abdominal pain or neck pain Review of Systems Const: Denies: fever(s), chills, body aches or change in appetite Eyes: Denies: eye discomfort ENMT: Denies: throat pain or dental pain Card: Reports: chest pain and syncope Resp: Denies: dyspnea GI: Denies: abdominal pain, nausea, vomiting or diarrhea : Denies: dysuria Musc: Denies: neck pain or back pain Skin/Breast: Denies: rash Neuro: Reports: headache(s) PFSH ED PFSH: Medical History CAD (coronary artery disease) Cirrhosis COPD (chronic obstructive pulmonary disease) Hemochromatosis Hemochromatosis Hypertension Nocturnal hypoxia NSAID long-term use Smoking addiction Status post chemoradiation Vaginal tumors Surgical History H/O vaginal surgery Hx of appendectomy Hx of colonoscopy with polypectomy 10 yrs ago Family History Denies family history of Colon cancer Ovarian cancer Diabetes Heart disease Hypercholesteremia Breast cancer Hypertension Uterine cancer Thyroid disease Stroke Social History Smoking and tobacco status: former smoker Quit status (tobacco): quit date established Planned quit date: 05/27/22 Alcohol intake: never Substance/Drug Use: never Lives independently: Yes Household members: significant other Marital status: Single Physical Exam Const: COMMON NORMALS: patient oriented x3 HENMT: COMMON NORMALS: normocephalic HEAD & SCALP: normocephalic OTHER: Contusion to forehead small laceration to inner lip does not involve the vermilion border is not through and through Eye: COMMON NORMALS: Equal, round and reactive pupils present and EOMs intact bilaterally PUPIL: Yes Equal, round and reactive pupils present Neck/C-Spine: COMMON NORMALS: full ROM and supple CERVICAL SPINE: No cervical ROM normal and No Cervical spine tenderness Chest: COMMONS NORMALS: normal inspection of the chest and normal palpation of entire chest wall Resp: COMMON NORMALS: normal respiratory effort, No retractions, No use of accessory muscles and clear to auscultation bilaterally AUSCULTATION: clear to auscultation bilaterally Cardio: COMMON NORMALS: regular rate, regular rhythm and No murmurs present (Cardio) RATE: regular rate RHYTHM: regular rhythm GI: COMMON NORMALS: Normal to inspection, nondistended, normoactive bowel sounds present, Soft to palpation, non-tender and no masses PALPATION: Yes Soft to palpation Extremity: COMMON NORMALS: normal to inspection and full ROM Neuro: COMMON NORMALS: patient oriented x3, moves all extremities and no focal motor deficits Psych: COMMON NORMALS: mental status grossly normal, Normal thought process present and cooperative THOUGHT PROCESS: Normal thought process present Skin: COMMON NORMALS: no rashes or lesions noted and no wounds GENERAL SKIN EXAM: no rashes or lesions noted Course Vital Signs: Vital signs: Vital Signs Temperature 98.2 F 10/21/22 21:37 Pulse Rate 59 L 10/22/22 00:40 Respiratory Rate 16 10/22/22 00:14 Blood Pressure 126/58 10/22/22 00:40 Pulse Oximetry 93 10/22/22 00:14 Oxygen Delivery Me thod Room Air 10/21/22 21:37 MDM - Fall Medical Decision Making Patient presents after syncopal event. She been well-appearing here she feels feel improved vitals here are all been normal her imaging is all normal both troponins are normal she has no signs of acute coronary syndrome no signs of dissection or pulmonary embolism. She is stable for discharge she is to follow-up with PCP and return if worsening she understands agrees to plan. Medical Records I reviewed the patient's medical records. Lab Data I reviewed the patient's lab results. 10/21/22 21:55 10/21/22 21:[address] 10/21/22 22:32 IMPRESSION: No acute findings. Head CT 10/21/22 22:32 IMPRESSION: Negative for intracranial hemorrhage or mass effect. Chest X-Ray 10/21/22 22:33 IMPRESSION: Cardiomegaly, negative for infiltrate. Laboratory Results WBC 7.5 10^3/uL (4.0-10.0) 10/21/22 21:55 RBC 4.01 10^6/uL (4.1-5.3) L 10/21/22 21:55 Hgb 13.5 g/dL (11.5-15.3) 10/21/22 21:55 Hct 40.7 % (37.0-47.0) 10/21/22 21:55 MCV 101.5 fl (81-99) H 10/21/22 21:55 MCH 33.7 pg (28.0-34.0) 10/21/22 21:55 MCHC 33.2 g/dL (30.0-36.0) 10/21/22 21:55 RDW 15.6 % (12.1-15.1) H 10/21/22 21:55 Plt Count 182 10^3/cmm (130-400) 10/21/22 21:55 MPV 9.9 fL (7.4-10.4) 10/21/22 21:55 Neut % (Auto) 76.8 % 10/21/22 21:55 Lymph % (Auto) 14.1 % 10/21/22 21:55 [place] % (Auto) 6.3 % 10/21/22 21:55 Eos % (Auto) 1.6 % 10/21/22 21:55 Baso % (Auto) 0.5 % 10/21/22 21:55 Neut # (Auto) 5.73 10^3/uL (1.8-7.7) 10/21/22 21:55 Lymph # (Auto) 1.1 10^3/uL (0.8-4.8) 10/21/22 21:55 [place] # (Auto) 0.5 10^3/uL (0.2-0.9) 10/21/22 21:55 Eos # (Auto) 0.1 10^3/uL (0.0-0.8) 10/21/22 21:55 Baso # (Auto) 0.0 10^3/uL (0.0-0.1) 10/21/22 21:55 Nucleated RBC % (auto) 0 % 10/21/22 21:55 Nucleated RBCs # 0.0 /100WBC 10/21/22 21:55 Sodium 144 mmol/L (136-145) 10/21/22 21:55 Potassium 3.3 mmol/L (3.5-5.1) L 10/21/22 21:55 Chloride 108 mmol/L (98-107) H 10/21/22 21:55 Carbon Dioxide 26 mmol/L (22-29) 10/21/22 21:55 Anion Gap 13.3 (5-19) 10/21/22 21:55 BUN 23 mg/dL (6-20) H 10/21/22 21:55 Creatinine 0.9 mg/dL (0.5-0.9) 10/21/22 21:55 GFR Calculation 64.5 mL/min (90-130) L 10/21/22 21:55 Glucose 162 mg/dL (65-115) H 10/21/22 21:55 Calculated Osmolality 305 mOsm/kg (285-295) H 10/21/22 21:55 Calcium 9.1 mg/dL (8.5-10.5) 10/21/22 21:55 Total Bilirubin 0.2 mg/dL (0.15-1.2) 10/21/22 21:55 AST 47 U/L (0-32) H 10/21/22 21:55 ALT 56 U/L (0-33) H 10/21/22 21:55 Alkaline Phosphatase 111 U/L (35-105) H 10/21/22 21:55 Troponin T Baseline 14 ng/L (0-10) H 10/21/22 21:55 Troponin T 120 Minute 14.78 ng/L (0-10) H 10/22/22 00:03 Delta Troponin T 0.78 ABS# (0-10) 10/22/22 00:03 Total Protein 7.0 g/dL (6.6-8.7) 10/21/22 21:55 Albumin 3.9 g/dL (3.5-5.2) 10/21/22 21:55 Globulin 3.1 g/dL (1.3-4.6) 10/21/22 21:55 EKG Data EKG 1: I personally reviewed and interpreted this EKG as follows: EKG interpretation date: 10/21/22 EKG interpretation time: 22:31 Interpretation: sinus lenin hr [address] or t wave abnormalities qrs 86 qtc 404 Discharge Plan Discharge Patient Disposition: Home Clinical Impression: Syncope, Chest pain, CHI (closed head injury), Laceration of lower lip Condition: Stable Prescriptions: New hydrocodone-acetaminophen 5-325 mg tablet 1 tab PO Q6H PRN (Reason: pain) Qty: 14 0RF No Action nitroglycerin 0.4 mg tablet, sublingual 0.4 mg sublingual Q5M PRN (Reason: chest pain) Qty: 30 2RF Rx Instructions: do not exceed 3 doses per episode potassium chloride [Klor-Con 8] 8 mEq tablet extended release 8 meq PO DAILY Qty: 30 2RF Rx Instructions: Take with bumex bumetanide 1 mg tablet 1 mg PO QAM Qty: 90 2RF Rx Instructions: increase to 2mg daily for 3 days then reduce to 1mg daily. Take with potassium amlodipine 5 mg tablet 5 mg PO DAILY Qty: 30 5RF pantoprazole [Protonix] 40 mg tablet,delayed release (DR/EC) 40 mg PO BID 42 Days Qty: 84 1RF Brilinta 90 mg tablet 90 mg PO BID Qty: 180 2RF Hold Instructions: Resume on 09/20/22. hydrochlorothiazide 25 mg tablet 25 mg PO BID lidocaine-prilocaine 2.5-2.5 % cream 1 applic topical ONCE Qty: 30 0RF Rx Instructions: Apply to port 30-45 minutes prior to access ibuprofen 800 mg tablet 800 mg PO TID PRN (Reason: Pain) Hold Instructions: Resume on 09/20/22. meloxicam 15 mg tablet 15 mg PO DAILY Hold Instructions: Resume on 09/20/22. albuterol sulfate 90 mcg/actuation HFA aerosol inhaler 2 inh INHALATION Q4H PRN (Reason: shortness of breath or wheezing) Qty: 18 0RF ondansetron 4 mg tablet,disintegrating 4 mg PO Q6H PRN (Reason: nausea and vomiting) Qty: 14 0RF docusate sodium [Colace] 100 mg capsule 100 mg PO BID Qty: 14 0RF Rexulti 0.5 mg Tablet 0.5 mg PO DAILY hydrocodone-acetaminophen 5-325 mg tablet 1 tab PO Q6H PRN (Reason: pain) Qty: 10 0RF DOK 100 mg capsule 100 mg PO BID Qty: 7 0RF fluticasone propion-salmeterol [Advair Diskus] 500-50 mcg/dose blister with device 1 inh INHALATION BID lisinopril 40 mg tablet 40 mg PO BID fluoxetine 20 mg capsule 20 mg PO QAM bupropion HCl 450 mg tablet extended release 24 hr 450 mg PO QAM albuterol sulfate 2.5 mg /3 mL (0.083 %) solution for nebulization 2.5 mg inhalation Q4H PRN (Reason: Shortness Of Breath) aspirin 81 mg Tablet,Delayed Release (Dr/Ec) 81 mg PO QAM hydroxyzine HCl 25 mg tablet 25 - 50 mg PO QID PRN (Reason: Anxiety) albuterol sulfate [Ventolin HFA] 90 mcg/actuation HFA aerosol inhaler 2 puff INHALATION QID PRN (Reason: Shortness Of Breath) carvedilol 25 mg tablet 25 mg PO BID 30 Days Qty: 60 0RF Rx Instructions: must administer with a meal/food Discharge Orders: Discharge ED (Routine); Ordered 10/22/22 Ordered By: Jonathan Rice Referrals: Ryann Burk [Primary Care Provider] - 1-3 days Discharge Diet: Advance as tolerated Discharge Activity: Resume usual activity Patient Instructions: Syncope (ED), Head Injury (ED), Laceration Without Closure (ED) Coding Level of Care Code ED Incident Response Lead for Ann Machuca
[2022-10-21 22:54] LABS: Troponin(5th) Baseline 14 ng/L (0-10)
[2022-10-21 23:06] VITALS: RESP 18
[2022-10-21] MEDS: ondansetron 2 mg/ML SDV 2 mL 4 MG IVP (23:06)
[2022-10-21] MEDS: morphine 4 mg/mL SDV 1 mL IVP (23:06)
[2022-10-21 23:44] VITALS: BP 119/61; PULSE 56; RESP 16; O2SAT 94
[2022-10-22 00:14] VITALS: RESP 16; O2SAT 93
[2022-10-22] MEDS: morphine 4 mg/mL SDV 1 mL IVP (00:14)
[2022-10-22] MEDS: ondansetron 2 mg/ML SDV 2 mL 4 MG IVP (00:14)
[2022-10-22 00:26] LABS: Troponin 5 2HR 14.78 ng/L (0-10)
[2022-10-22 00:32] LABS: Troponin 5 2HR Delta 0.78 ABS# (0-10)
--- NOTE | 2022-10-22 00:32 | ECG_ITS ---
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 Measurements Intervals [place] Rate: 49 P: 64 VT: 173 QRS: 77 QRSD: 91 T: 16 QT: 432 QTc: 393 Interpretive Statements SINUS BRADYCARDIA NONSPECIFIC ST & T-WAVE ABNORMALITY Compared to ECG 10/21/2022 22:31:18 No significant changes Electronically Signed On 10-22-2022 23:30:21 CDT by Ivis Drake M.D. [email or web address]/store/[id number] f
[2022-10-22 00:40] VITALS: BP 126/58; BP 128/62; BP 129/63; PULSE 55; PULSE 59; PULSE 64
[2022-10-22 01:02] VITALS: BP 107/66; PULSE 66; RESP 16; O2SAT 94
== END 2022-10-22 01:09 | disposition home or self-care (01) ==
PROVIDERS: Emergency Provider Emergency Medicine; PCP Family Medicine
DX: R55 Syncope and collapse (principal); R07.9 Chest pain, unspecified; S09.8XXA Other specified injuries of head, initial encounter; S01.511A Laceration without foreign body of lip, initial encounter; Z79.82 Long term (current) use of aspirin; Z87.891 Personal history of nicotine dependence; I25.10 Atherosclerotic heart disease of native coronary artery without angina pectoris; J44.9 Chronic obstructive pulmonary disease, unspecified; I10 Essential (primary) hypertension; Z92.21 Personal history of antineoplastic chemotherapy; Z92.3 Personal history of irradiation; Z79.01 Long term (current) use of anticoagulants; W18.30XA Fall on same level, unspecified, initial encounter
CPT/HCPCS: 36415; 70450; 70486; 71045; 80053; 84484; 85025; 93005; 96374; 96375; 96376; 99285; J2270; J2405

== ENCOUNTER 2022-10-24 10:43 | Inpatient (IN) | payer MEDICAID, SELFPAY ==
[2022-10-24] VITALS (8 sets, daily range): BP systolic 121–128; BP diastolic 53–88; PULSE 46–92; RESP 16–18; TEMP 36.8; O2SAT 94–99; BMI 32.5
--- NOTE | 2022-10-24 10:56 | ED_ITS ---
HPI - Chest Pain General: Chief Complaint: Chest Pain Stated Complaint: CP Time Seen by Provider: 10/24/22 10:56 History of Present Illness: Ms. Barnhart is a 57-year-old lady with complex history of CAD with history of stents, CHF, hemochromatosis, COPD, hypertension, obesity presented to the emergency department for evaluation of chest pain and syncopal episode. She has a history of episodes of dizziness however this morning was on the toilet and the next thing that she knew she woke up on the ground. She reports substernal chest pain with radiation of the right arm and back. She has associated nausea and shortness of breath. This is a second time that she has had a syncopal episode without preceding prodrome and she was seen on 10/21 for similar. Friend was also concerned about possible shaking while sitting on the couch though patient does not specifically recall this. No other specific changes in health, exacerbating, or alleviating factors identified. Onset (ago): hour(s) Prior episodes: Yes Pain location: substernal Pain radiation: right arm and back Severity: moderate Associated symptoms: Reports dyspnea, nausea and syncope Review of Systems General: Reports: 10 or more systems reviewed and unremarkable except in HPI and below Card: Reports: syncope Resp: Reports: dyspnea GI: Reports: nausea PFSH ED PFSH: Medical History (Updated 10/30/22 @ 00:01 by LLOYD Irizarry) Atherosclerotic heart disease of [place] coronary artery with unstable angina pectoris CAD (coronary artery disease) Cirrhosis COPD (chronic obstructive pulmonary disease) Hemochromatosis Hemochromatosis Hypertension Nocturnal hypoxia NSAID long-term use Smoking addiction Status post chemoradiation Vaginal tumors Surgical History H/O vaginal surgery Hx of appendectomy Hx of colonoscopy with polypectomy 10 yrs ago Family History Denies family history of Colon cancer Ovarian cancer Diabetes Heart disease Hypercholesteremia Breast cancer Hypertension Uterine cancer Thyroid disease Stroke Social History Smoking and tobacco status: former smoker Quit status (tobacco): quit date established Planned quit date: 05/27/22 Alcohol intake: never Substance/Drug Use: never Lives independently: Yes Household members: significant other Marital status: Single Physical Exam Const: COMMON NORMALS: alert GENERAL APPEARANCE: cooperative and well developed HENMT: COMMON NORMALS: normocephalic and atraumatic HEAD & SCALP: normocephalic and atraumatic THROAT: posterior oropharynx normal OTHER: Abrasion with scabbing to the nose and small contusion to chin. No friend signs or raccoon eyes. No hemotympanum. No otorrhea or rhinorrhea. Jaw alignment normal. Dentition baseline. No obvious bony step-offs. No septal hematoma. No evidence of ocular entrapment. Eye: COMMON NORMALS: conjunctivae normal CONJUNCTIVA: Yes conjunctivae normal SCLERA: sclerae normal Neck/C-Spine: COMMON NORMALS: supple GENERAL: Yes trachea midline Resp: COMMON NORMALS: clear to auscultation bilaterally EFFORT & INSPECTION: Yes able to speak in complete sentences AUSCULTATION: clear to auscultation bilaterally Cardio: COMMON NORMALS: regular rate and regular rhythm RATE: regular rate RHYTHM: regular rhythm GI: COMMON NORMALS: Soft to palpation PALPATION: Yes Soft to palpation and No Tenderness to palpation present (GI) Extremity: GENERAL: Yes normal exam except as noted and No edema Neuro: COMMON NORMALS: moves all extremities SENSORIUM/ORIENTATION: Yes alert and No Orientation impaired Psych: COMMON NORMALS: mental status grossly normal and Normal thought process present THOUGHT PROCESS: Normal thought process present Course Vital Signs: Vital signs: Vital Signs Temperature 98.0 F 10/27/22 08:00 Pulse Rate 74 10/27/22 14:00 Respiratory Rate 18 10/27/22 08:00 Blood Pressure 124/74 10/27/22 14:11 Pulse Oximetry 97 10/27/22 14:02 Oxygen Delivery Me thod Nasal Cannula 10/27/22 08:00 Oxygen Flow Rate 3 10/27/22 07:08 MDM - Chest Pain Medical Decision Making 57-year-old lady presenting due to chest pain and possible mental status change. Exam as above. No focal deficits. Nontoxic though somewhat ill. EKG demonstrates sinus rhythm with nonspecific ST segment abnormalities, no STEMI. Labs with no leukocytosis, normal hemoglobin and platelet count. Metabolic panel without acute electrolyte arrangement. Minimal ALT elevation. Negative range 2-hour delta troponin. Urinalysis pending. Chest x-ray with no lobar consolidation or pneumothorax. CTA negative for PE. Incidental findings discussed with patient. During care in the emergency department on telemetry patient noted to have roverto rly significant Silvestre without clear explanation which may be the cause of symptoms. The results of ED evaluation were discussed with the patient including plan for admission due to requirement for level of care not available if discharged to prevent significant worsening/deterioration. Patient agreeable with plan. Discussed with hospitalist service who was agreeable to admit patient. Medical Records I reviewed the patient's medical records. Lab Data I reviewed the patient's lab results. 10/27/22 08:37 10/27/22 08:37 Radiology Impressions Chest X-Ray 10/24/22 11:04 Impression: Cardiomegaly Chest CTA 10/24/22 11:21 IMPRESSION: 1. No pulmonary embolism. 2. Status post RIGHT mastectomy. 3. No mediastinal or hilar adenopathy. 4. No pneumonia. 5. LEFT adrenal hyperplasia. Carotid Doppler Study 10/25/22 16:24 IMPRESSION: 1. Mild left ICA stenosis. 2. No right ICA stenosis. REFERENCES: SRU CRITERIA. The degree of internal carotid artery stenosis is based on criteria defined by the Society of Radiologists in Ultrasound (SRU). Normal is no stenosis. Mild is less than 50% stenosis. Moderate is 50-69% stenosis. Severe is greater than 69% stenosis to near occlusion. Near occlusion is a markedly narrowed lumen. Total occlusion is no detectable patent lumen. Laboratory Results WBC 4.8 10^3/uL (4.0-10.0) 10/25/22 04:55 RBC 3.34 10^6/uL (4.1-5.3) L 10/25/22 04:55 Hgb 11.3 g/dL (11.5-15.3) L 10/25/22 04:55 Hct 34.5 % (37.0-47.0) L 10/25/22 04:55 MCV 103.3 fl (81-99) H 10/25/22 04:55 MCH 33.8 pg (28.0-34.0) 10/25/22 04:55 MCHC 32.8 g/dL (30.0-36.0) D 10/25/22 04:55 RDW 15.5 % (12.1-15.1) H 10/25/22 04:55 Plt Count 148 10^3/cmm (130-400) 10/25/22 04:55 MPV 9.6 fL (7.4-10.4) 10/25/22 04:55 Neut % (Auto) 62.4 % 10/25/22 04:55 Lymph % (Auto) 23.9 % 10/25/22 04:55 [place] % (Auto) 7.8 % 10/25/22 04:55 Eos % (Auto) 4.0 % 10/25/22 04:55 Baso % (Auto) 0.6 % 10/25/22 04:55 Neut # (Auto) 2.97 10^3/uL (1.8-7.7) 10/25/22 04:55 Lymph # (Auto) 1.1 10^3/uL (0.8-4.8) 10/25/22 04:55 [place] # (Auto) 0.4 10^3/uL (0.2-0.9) 10/25/22 04:55 Eos # (Auto) 0.2 10^3/uL (0.0-0.8) 10/25/22 04:55 Baso # (Auto) 0.0 10^3/uL (0.0-0.1) 10/25/22 04:55 Nucleated RBC % (auto) 0 % 10/25/22 04:55 Nucleated RBCs # 0.0 /100WBC 10/25/22 04:55 D-Dimer 0.77 ug/mIFEU (0-0.59) H 10/24/22 10:55 Sodium 145 mmol/L (136-145) 10/25/22 04:55 Potassium 3.3 mmol/L (3.5-5.1) L 10/25/22 04:55 Chloride 108 mmol/L (98-107) H 10/25/22 04:55 Carbon Dioxide 27 mmol/L (22-29) 10/25/22 04:55 Anion Gap 13.3 (5-19) 10/25/22 04:55 BUN 15 mg/dL (6-20) 10/25/22 04:55 Creatinine 0.8 mg/dL (0.5-0.9) 10/25/22 04:55 GFR Calculation 73.9 mL/min (90-130) L 10/25/22 04:55 Glucose 136 mg/dL (65-115) H 10/25/22 04:55 POC Glucose 117 mg/dL (70-110) H 10/25/22 10:38 Estimat Average Glucose 97 10/25/22 04:55 Hemoglobin A1c 5.0 % (4.0-6.0) 10/25/22 04:55 Calculated Osmolality 303 mOsm/kg (285-295) H 10/25/22 04:55 Calcium 8.9 mg/dL (8.5-10.5) 10/25/22 04:55 Phosphorus 4.2 mg/dL (2.5-4.5) 10/25/22 04:55 Magnesium 1.5 mg/dL (1.7-2.3) L 10/25/22 04:55 Total Bilirubin 0.4 mg/dL (0.15-1.2) 10/24/22 10:55 AST 20 U/L (0-32) 10/24/22 10:55 ALT 35 U/L (0-33) H 10/24/22 10:55 Alkaline Phosphatase 100 U/L (35-105) 10/24/22 10:55 Troponin T Baseline 16 ng/L (0-10) H 10/25/22 04:55 Troponin T 120 Minute 11.34 ng/L (0-10) H 10/25/22 06:54 Delta Troponin T -4.66 ABS# (0-10) L 10/25/22 06:54 Troponin T Hi Sens 6Hr 14.30 ng/L (0-10) H 10/25/22 11:02 Troponin T Hi Sens 6Hr Delta -1.70 ng/L (0-12) L 10/25/22 11:02 C-Reactive Protein 15.4 mg/L (0.0-4.9) H 10/25/22 04:55 NT-Pro-B Natriuret Pep 337 pg/mL (0-125) H 10/24/22 10:55 Total Protein 6.8 g/dL (6.6-8.7) 10/24/22 10:55 Albumin 4.1 g/dL (3.5-5.2) 10/24/22 10:55 Globulin 2.7 g/dL (1.3-4.6) 10/24/22 10:55 Lipase 9 U/L (13-60) L 10/24/22 10:55 Vitamin B12 389 pg/mL (232-1245) 10/24/22 10:55 TSH 0.72 uIU/mL (0.27-4.20) 10/24/22 10:55 Prolactin 18.62 ng/mL (4.8-23.3) 10/24/22 10:55 Urine Color Yellow (Yellow) 10/24/22 11:58 Urine Appearance Hazy (CLEAR) A 10/24/22 11:58 Urine pH 6 (5-7) 10/24/22 11:58 Ur Specific [place] 1.005 (1.005-1.030) 10/24/22 11:58 Urine Protein Neg (Negative) 10/24/22 11:58 Urine Glucose (UA) Norm (Normal) 10/24/22 11:58 Urine Ketones Negative (Negative) 10/24/22 11:58 Urine Blood Neg (Negative) 10/24/22 11:58 Urine Nitrate Negative (Negative) 10/24/22 11:58 Urine Bilirubin Neg (Negative) 10/24/22 11:58 Urine Urobilinogen Norm mg/dL (Negative) 10/24/22 11:58 Ur Leukocyte Esterase 1+ (Negative) H 10/24/22 11:58 Urine RBC 0-4 /hpf (0-2) H 10/24/22 11:58 Urine WBC 15-25 /hpf (0-5) H 10/24/22 11:58 Ur Squamous Epith Cells 0-4 /hpf (0-5) H 10/24/22 11:58 Amorphous Sediment Not Reportable 10/24/22 11:58 Urine Bacteria 1+ /hpf (NONE) H 10/24/22 11:58 Discharge Plan Discharge Patient Disposition: Placed in Observation Admit Provider: Nba Fitzgerald Clinical Impression: Syncope, Bradycardia Discharge Diet: Cardiac and Diabetic Discharge Activity: Resume usual activity and Increase activity as tolerated Coding Level of Care Code ED Military Science Teacher for Ann Machuca
--- NOTE | 2022-10-24 11:04 | ECG_ITS ---
[facility] Test Date: 2022-10-24 Pat Name: Le Barnhart Department: Room: Gender: Female Unit Controller: : 1965 Requested By: J Luis Klein Order Number: [id number] Lopez MD: Aaliyah Cruz M.D. Measurements Intervals [place] Rate: 54 P: 31 HI: 162 QRS: 60 QRSD: 89 T: -16 QT: 399 QTc: 379 Interpretive Statements SINUS BRADYCARDIA NONSPECIFIC ST & T-WAVE ABNORMALITY Compared to ECG 10/21/2022 23:56:05 No significant changes Electronically Signed On 10-24-2022 13:54:37 CDT by Aaliyah Cruz M.D. [email or web address] [email or web address]/[id number] f
--- NOTE | 2022-10-24 11:04 | XR_ITS ---
WS: [id number] Portable AP upright chest, 10/24/2022 Clinical Data: syncope, cp Comparison: Portable chest, 10/21/2022 Findings: No nodules, masses or effusions are seen. The heart is likely enlarged.. The pulmonary vasc ularity is not increased. No pneumonia or pneumothorax is seen. There is an infusion port entering th e right internal jugular vein and ending in the superior vena cava. There are monitor leads on the ch est wall. There is an anterior cervical disc fusion. XR/XR chest 1V portable [id number] Impression: Cardiomegaly
[2022-10-24 11:11] LABS: Basophils # 0.1 10^3/uL (0.0-0.1); Basophils % 0.7 %; Eosinophils # 0.2 10^3/uL (0.0-0.8); Eosinophils % 2.1 %; Hematocrit 37.6 % (37.0-47.0); Hemoglobin 13.1 g/dL (11.5-15.3); Lymphocytes # 0.9 10^3/uL (0.8-4.8); Lymphocytes % 12.1 %; Mean Corpuscular HGB Conc 34.8 g/dL (30.0-36.0); Mean Corpuscular Hemoglobin 34.8 pg (28.0-34.0); Mean Platelet Volume 9.9 fL (7.4-10.4); Monocytes # 0.4 10^3/uL (0.2-0.9); Monocytes % 5.1 %; Neutrophils # 5.55 10^3/uL (1.8-7.7); Neutrophils % 78.7 %; Nucleated Red Blood Cells % 0 %; Platelet Count 187 10^3/cmm (130-400); Red Blood Count 3.76 10^6/uL (4.1-5.3); Red Cell Distribution Width 15.3 % (12.1-15.1); White Blood Count 7.1 10^3/uL (4.0-10.0)
[2022-10-24] MEDS: ondansetron 2 mg/ML SDV 2 mL 4 MG IVP (11:14)
[2022-10-24] MEDS: morphine 4 mg/mL SDV 1 mL IVP ×2 (11:14→14:55)
[2022-10-24] MEDS: aspirin 81 mg Chew Tablet 324 MG PO (11:14)
[2022-10-24 11:19] LABS: D Dimer 0.77 ug/mIFEU (0-0.59)
[2022-10-24] MEDS: aspirin 81 mg Chew Tablet (11:21)
--- NOTE | 2022-10-24 11:21 | CT_ITS ---
WS: [id number] CT CHEST ANGIOGRAPHY WITH REFORMATS HISTORY: cp, sob, syncope, elevated ddimer TECHNIQUE: Contiguous axial images are obtained through the chest during arterial injection of intrav enous contrast. Images are reconstructed to evaluate the pulmonary arteries. MIP imaging also reviewe d. All CT scans at [facility] use at least one of these dose optimization techniques: automat ed exposure control; mA and/or kV adjustment per patient size (includes targeted exams where dose is matched to clinical indication); or iterative reconstruction. CONTRAST: Omnipaque 350; 100 mL IV. DLP: 470.87 mGy.cm COMPARISON: 06/17/2022 Excellent opacification of the pulmonary arteries. There are no filling defects. No pulmonary embolis m. No RIGHT heart strain. Normal-sized thoracic aorta with only mild atherosclerotic disease. No aneu rysm. No enlarged mediastinal or hilar lymph nodes. No pulmonary mass or nodules. Prior RIGHT mastectomy. RIGHT subclavian Mediport. No hiatal hernia. Mi ld thickening of the LEFT adrenal gland similar to the prior examination. Normal RIGHT adrenal gland. No inflammatory changes in the upper abdomen. Mild increase in thoracic kyphosis. CT/CT angio chest PE protcl [id number] IMPRESSION: 1. No pulmonary embolism. 2. Status post RIGHT mastectomy. 3. No mediastinal or hilar adenopathy. 4. No pneumonia. 5. LEFT adrenal hyperplasia.
[2022-10-24 11:29] LABS: Troponin(5th) Baseline 14 ng/L (0-10)
[2022-10-24 11:33] LABS: Albumin Level 4.1 g/dL (3.5-5.2); Alkaline Phosphatase 100 U/L (35-105); Blood Urea Nitrogen 19 mg/dL (6-20); Calcium 9.5 mg/dL (8.5-10.5); Carbon Dioxide 27 mmol/L (22-29); Chloride 105 mmol/L (98-107); Creatinine Clr Calc Pharmacy 94.1971; Globulin 2.7 g/dL (1.3-4.6); Glomerular Filtration Rate 86.2 mL/min (90-130); Glucose 131 mg/dL (65-115); Lipase 9 U/L (13-60); NT Pro B Type Natriuretic Pept 337 pg/mL (0-125); Osmolality Calculated 302 mOsm/kg (285-295); Sodium 144 mmol/L (136-145); Total Bilirubin 0.4 mg/dL (0.15-1.2); Total Protein 6.8 g/dL (6.6-8.7)
--- NOTE | 2022-10-24 11:33 | PC.NURSE ---
Patient on continuous CM and timed VS.
[2022-10-24] MEDS: iohexol 350 mg/mL 500 mL Btl (per mL) IV (11:44)
[2022-10-24 11:47] LABS: Aspartate Amino Transferase 20 U/L (0-32)
[2022-10-24 11:48] LABS: Alanine Aminotransferase 35 U/L (0-33)
[2022-10-24 11:54] LABS: Prolactin 18.62 ng/mL (4.8-23.3)
[2022-10-24 12:19] LABS: Add Urine Culture? Yes; Add Urine Microscopic? YES; Bacteria Urine 1+ /hpf; Bilirubin Urine Neg (Negative); Blood Urine Neg (Negative); Glucose Urine UA Norm (Normal); Ketones Urine Negative (Negative); Leukocyte Esterase Urine 1+ (Negative); Nitrate Urine Negative (Negative); Protein Urine Neg (Negative); RBC Urine 0-4 /hpf (0-2); Specific Gravity, Urine 1.005 (1.005-1.030); Squamous Epithelial Cell Urine 0-4 /hpf (0-5); Urine Appearance Hazy (CLEAR); Urine Color Yellow (Yellow); Urobilinogen Urine Norm (Negative); WBC Urine 15-25 /hpf (0-5); pH Urine 6 (5-7)
[2022-10-24] MEDS: acetaminophen 500 mg Tablet 1000 MG PO (12:45)
[2022-10-24] MEDS: dicyclomine 10 mg Capsule PO (12:45)
[2022-10-24] MEDS: aluminum-mag hydrox-simethicon 30 ML, sucralfate oral liq 1 GM PO (12:45)
--- NOTE | 2022-10-24 13:13 | ECG_ITS ---
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 Measurements Intervals [place] Rate: 53 P: 48 AR: 172 QRS: 61 QRSD: 89 T: -48 QT: 421 QTc: 396 Interpretive Statements SINUS BRADYCARDIA ST DEVIATION AND MODERATE T-WAVE ABNORMALITY, CONSIDER INFERIOR ISCHEMIA [-0.1+ mV T-WAVE IN II/aVF] Compared to ECG 10/21/2022 23:56:05 Possible ischemia now present T-wave abnormality still present Electronically Signed On 10-24-2022 13:39:39 CDT by Aaliyah Cruz M.D. [id number]
[2022-10-24] MEDS: nitroglycerin 0.4 mg sublingual Tablet SUBLINGUAL (13:56)
[2022-10-24 14:06] LABS: Troponin 5 2HR 11.95 ng/L (0-10); Troponin 5 2HR Delta -2.05 ABS# (0-10)
--- NOTE | 2022-10-24 14:09 | PM.HP ---
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 First episode was day before yesterday and second episode was today when she was using toilet patient stating that she was not straining at all all of a sudden she lost consciousness and next thing she knows she was on the ground and her called 911. According to the family they noticed that her eyes were rolling back and she was not able to make eye contact and she was confused for a few seconds. She never had any history of seizures no recent nausea, vomiting but patient is stating that she gets chest pressure on and off without any aggravating factors In the ER she was diagnosed with sinus bradycardia hemodynamically stable awake and alert, normal CBC and BMP, Patient is smoking on and off, last cigarette was 6 days ago Does not use oxygen at home She has been using Coreg Review of Systems Eyes: Denies: change in vision ENMT: Denies: throat pain Card: Reports: chest pain Resp: Denies: dyspnea GI: Denies: abdominal pain : Denies: flank pain Musc: Denies: neck pain Skin/Breast: Denies: rash Neuro: Denies: headache(s) Psych: Reports: anxiety Medications/Allergies Home Medications Medication Instructions Recorded Confirmed Last Taken Type lisinopril 40 mg tablet 40 mg PO BID 05/06/22 10/24/22 10/24/22 History albuterol sulfate 2.5 mg/3 mL 2.5 mg inhalation Q4H PRN 06/10/22 10/24/22 09/16/22 History (0.083 %) solution for nebulization Shortness Of Breath aspirin 81 mg tablet,delayed 81 mg PO QAM 06/10/22 10/24/22 09/13/22 History release hydroxyzine HCl 25 mg tablet 25 - 50 mg PO QID PRN Anxiety 06/10/22 10/24/22 09/17/22 History carvedilol 25 mg tablet 25 mg PO BID 30 days #60 tabs 06/11/22 10/24/22 10/24/22 Rx albuterol sulfate 90 mcg/actuation 2 inh inhalation Q4H PRN shortness 06/14/22 10/24/22 09/16/22 Rx aerosol inhaler of breath or wheezing #18 grams meloxicam 15 mg tablet 15 mg PO DAILY 06/14/22 10/24/22 10/24/22 History bumetanide 1 mg tablet 1 mg PO QAM #90 tabs 06/25/22 10/24/22 10/24/22 Rx nitroglycerin 0.4 mg sublingual 0.4 mg sublingual Q5M PRN chest 06/25/22 10/24/22 Unknown Rx tablet pain #30 tabs ondansetron 4 mg disintegrating 4 mg PO Q6H PRN nausea and 07/17/22 10/24/22 Unknown Rx tablet vomiting #14 tabs pantoprazole 40 mg tablet,delayed 40 mg PO BID 6 weeks #84 tabs 07/22/22 10/24/22 10/24/22 Rx release (Protonix) ticagrelor 90 mg tablet (Brilinta) 90 mg PO BID #180 tabs 08/05/22 10/24/22 10/24/22 Rx hydrochlorothiazide 25 mg tablet 25 mg PO BID 09/02/22 10/24/22 10/24/22 History brexpiprazole 0.5 mg tablet 0.5 mg PO DAILY 09/18/22 10/24/22 10/24/22 History (Rexulti) amlodipine 5 mg tablet 5 mg PO DAILY #30 tabs 09/29/22 10/24/22 10/24/22 Rx lidocaine-prilocaine 2.5 %-2.5 % 1 applic topical ONCE #30 grams 10/15/22 10/24/22 Unknown Rx topical cream aripiprazole 30 mg tablet 30 mg PO DAILY 10/24/22 10/24/22 10/24/22 History atorvastatin 40 mg tablet 40 mg PO BEDTIME 10/24/22 10/24/22 10/23/22 History bupropion HCl 300 mg 24 hr tablet, 300 mg PO DAILY 10/24/22 10/24/22 10/24/22 History extended release clopidogrel 75 mg tablet 75 mg PO DAILY 10/24/22 10/24/22 10/24/22 History fluoxetine 40 mg capsule 40 mg PO DAILY 10/24/22 10/24/22 10/24/22 History hydrocodone 7.5 mg-acetaminophen 1 tab PO Q4H PRN Pain 10/24/22 10/24/22 Unknown History 325 mg tablet ibuprofen 400 mg tablet 400 mg PO Q8H PRN Pain 10/24/22 10/24/22 Unknown History isosorbide mononitrate 30 mg 30 mg PO DAILY 10/24/22 10/24/22 10/24/22 History tablet,extended release 24 hr Allergies Allergy/AdvReac Type Severity Reaction Status Date / Time ketorolac [From Toradol] Allergy ALGY-Hives Verified 10/21/22 21:37 prochlorperazine Allergy Unknown Verified 10/21/22 21:37 [From Compazine] PFSH Acute PFSH: Medical History CAD (coronary artery disease) Cirrhosis COPD (chronic obstructive pulmonary disease) Hemochromatosis Hemochromatosis Hypertension Nocturnal hypoxia NSAID long-term use Smoking addiction Status post chemoradiation Vaginal tumors Surgical History H/O vaginal surgery Hx of appendectomy Hx of colonoscopy with polypectomy 10 yrs ago Family History Denies family history of Colon cancer Ovarian cancer Diabetes Heart disease Hypercholesteremia Breast cancer Hypertension Uterine cancer Thyroid disease Stroke Social History Smoking and tobacco status: former smoker Quit status (tobacco): quit date established Planned quit date: 05/27/22 Alcohol intake: never Substance/Drug Use: never Lives independently: Yes Household members: significant other Marital status: Single Vitals/I&O/Wt Last Vital Signs Temp 98.3 F 10/24/22 10:46 Pulse 51 L 10/24/22 12:00 Resp 18 10/24/22 12:00 BP 123/65 10/24/22 12:00 Pulse Ox 99 10/24/22 11:21 O2 Del Method Room Air 10/24/22 11:21 Weight last 48 hrs Weight 86.183 kg Physical Exam Narrative: Awake and alert Nonfocal neuro exam Multiple scars and bruises all over her face GCS 15 Nonfocal neuro exam pleasant and cooperative Patient was able to tell me above HPI GCS 15 Morbidly obese S1, S2 sinus bradycardia I do not appreciate any murmur Currently on room air Data 10/24/22 10:55 10/24/22 10:55 Other data: Holter monitor CONCLUSION: 1.? The baseline rhythm was found to be normal sinus with an overall average heart rate of 77 beats per minute.? There were a total of 37 ventricular ectopics and 2054 supraventricular ectopics, comprising less than 1% and 1% respectively of the total heartbeats .? There was one 4 beat run of PAT, found to be asymptomatic. 2.? No significant pauses or bradycardias noted. 3.? No symptoms are recorded. 4.? No similar previous studies are available for comparison A&P Assessment and plan (1) Syncope: (2) Laceration of lower lip: (3) Chest pain: (4) Bradycardia: (5) Hemochromatosis: Plan Recurrent syncopal events No history of seizure, check prolactin level Patient seems to have sleep apnea, snores a lot, lack of energy and more, check pulse ox overnight Concern for sinus bradycardia which is symptomatic, monitor QTc interval, patient takes antipsychotics Discontinue Coreg Monitor on telemetry Request TSH magnesium and potassium levels Patient is well-known to Dr. 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 Check A1c level Consistent carb diet with insulin sliding scale Hypertension: Patient was on lisinopril 40 mg twice daily which I have changed to once a day Hold Coreg History of coronary disease patient stating that she experiencing on and off pressure-like sensation Continue aspirin and Brilinta History of 6 stents No active chest pain Monitor serial troponin with EKGs Attestations Medical Necessity Statement*: Less than 2 midnights anticipated for monitor of syncopal events Diagnoses Syncope R55 Laceration of lower lip S01.511A Chest pain R07.9 Bradycardia R00.1 Hemochromatosis E83.119
--- NOTE | 2022-10-24 17:04 | ECG_ITS ---
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 Measurements Intervals [place] Rate: 57 P: 63 GA: 163 QRS: 58 QRSD: 90 T: -22 QT: 410 QTc: 402 Interpretive Statements SINUS BRADYCARDIA POSSIBLE INFERIOR MYOCARDIAL INFARCTION , OF INDETERMINATE AGE [30 ms Q WAVE IN II/aVF] MODERATE T-WAVE ABNORMALITY, CONSIDER LATERAL ISCHEMIA [-0.1+ mV T-WAVE IN I/aVL/V5/V6] Compared to ECG 10/24/2022 13:13:50 Myocardial infarct finding now present T-wave abnormality still present Possible ischemia still present Electronically Signed On 10-24-2022 22:59:12 CDT by Aaliyah Cruz M.D. [id number]
[2022-10-24 17:15] LABS: Thyroid Stimulating Hormone 0.72 uIU/mL (0.27-4.20); Vitamin B12 389 pg/mL (232-1245)
[2022-10-24 17:44] LABS: Troponin 5 6HR 11.83 ng/L (0-10)
[2022-10-24 17:45] LABS: Troponin 5 6HR Delta -2.17 ng/L (0-12)
[2022-10-24 17:49] LABS: Glucose Point of Care 176 mg/dL (70-110)
[2022-10-24] MEDS: insulin lispro 100 unit/1 mL SUBCUT (17:56)
[2022-10-24] MEDS: pantoprazole DR 40 mg Tablet PO (17:56)
[2022-10-24] MEDS: hydroCHLOROthiazide 25 mg Tablet PO (17:57)
[2022-10-24] MEDS: HYDROcodone-acetaminophen 7.5-325 mg Tablet 1 TAB PO ×2 (17:57→22:03)
[2022-10-24] MEDS: ticagrelor 90 mg Tablet PO (17:57)
[2022-10-24] MEDS: atorvastatin 40 mg Tablet PO (20:04)
[2022-10-24 20:38] LABS: Glucose Point of Care 151 mg/dL (70-110)
[2022-10-24] MEDS: morphine 4 mg/mL SDV 1 mL 2 MG IVP (23:38)
[2022-10-25] VITALS (9 sets, daily range): BP systolic 105–123; BP diastolic 58–68; PULSE 57–75; RESP 13–22; TEMP 36.9–37.2; O2SAT 95–97
--- NOTE | 2022-10-25 04:13 | ECG_ITS ---
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 Measurements Intervals [place] Rate: 63 P: 85 [place]: 162 QRS: 63 QRSD: 84 T: -28 QT: 403 QTc: 414 Interpretive Statements SINUS RHYTHM NONSPECIFIC ST & T-WAVE ABNORMALITY Compared to ECG 10/24/2022 17:40:27 Sinus bradycardia no longer present Myocardial infarct finding no longer present Possible ischemia no longer present T-wave abnormality still present Electronically Signed On 10-25-2022 13:08:29 CDT by Ivis Drake M.D. [id number]
--- NOTE | 2022-10-25 04:49 | PC.NURSE ---
Pt transferred to [facility] [address] [address] Montero orders. Report given to MARICARMEN Adler @ [phone]. Left message for pts friend Marcin to return phone call.
[2022-10-25] MEDS: morphine 4 mg/mL SDV 1 mL 2 MG IVP (04:50)
[2022-10-25] MEDS: bumetanide 1 mg Tablet PO (04:53)
[2022-10-25 05:07] LABS: Basophils % 0.6 %; Eosinophils # 0.2 10^3/uL (0.0-0.8); Hematocrit 34.5 % (37.0-47.0); Hemoglobin 11.3 g/dL (11.5-15.3); Lymphocytes # 1.1 10^3/uL (0.8-4.8); Lymphocytes % 23.9 %; Mean Corpuscular HGB Conc 32.8 g/dL (30.0-36.0); Mean Corpuscular Hemoglobin 33.8 pg (28.0-34.0); Mean Corpuscular Volume 103.3 fl (81-99); Mean Platelet Volume 9.6 fL (7.4-10.4); Monocytes # 0.4 10^3/uL (0.2-0.9); Monocytes % 7.8 %; Neutrophils # 2.97 10^3/uL (1.8-7.7); Neutrophils % 62.4 %; Nucleated Red Blood Cells % 0 %; Platelet Count 148 10^3/cmm (130-400); Red Blood Count 3.34 10^6/uL (4.1-5.3); Red Cell Distribution Width 15.5 % (12.1-15.1); White Blood Count 4.8 10^3/uL (4.0-10.0)
[2022-10-25 05:30] LABS: Anion Gap 13.3 (5-19); Blood Urea Nitrogen 15 mg/dL (6-20); C Reactive Protein 15.4 mg/L (0.0-4.9); Calcium 8.9 mg/dL (8.5-10.5); Carbon Dioxide 27 mmol/L (22-29); Chloride 108 mmol/L (98-107); Creatinine Clr Calc Pharmacy 82.4225; Glomerular Filtration Rate 73.9 mL/min (90-130); Glucose 136 mg/dL (65-115); Magnesium 1.5 mg/dL (1.7-2.3); Osmolality Calculated 303 mOsm/kg (285-295); Phosphorus 4.2 mg/dL (2.5-4.5); Potassium 3.3 mmol/L (3.5-5.1); Sodium 145 mmol/L (136-145)
[2022-10-25 05:32] LABS: Estmated Average Glucose 97
[2022-10-25 05:42] LABS: Troponin(5th) Baseline 16 ng/L (0-10)
[2022-10-25 06:45] LABS: Glucose Point of Care 106 mg/dL (70-110)
[2022-10-25 07:33] LABS: Troponin 5 2HR 11.34 ng/L (0-10)
[2022-10-25 07:36] LABS: Troponin 5 2HR Delta -4.66 ABS# (0-10)
[2022-10-25] MEDS: HYDROcodone-acetaminophen 7.5-325 mg Tablet 1 TAB PO ×4 (08:35→20:03)
[2022-10-25] MEDS: ticagrelor 90 mg Tablet PO ×2 (08:36→17:15)
[2022-10-25] MEDS: buPROPion XL (24 HR) 300 mg Tablet PO (08:36)
[2022-10-25] MEDS: aspirin 81 mg EC Tablet PO (08:36)
[2022-10-25] MEDS: lisinopril 20 mg Tablet 40 MG PO (08:36)
[2022-10-25] MEDS: fluoxetine 20 mg Capsule 40 MG PO (08:36)
[2022-10-25] MEDS: pantoprazole DR 40 mg Tablet PO ×2 (08:36→17:15)
--- NOTE | 2022-10-25 09:07 | PC.NURSE ---
Patient reported chest discomfort, nurse told patient she would get her a nitro for her chest pain patient said I dont want no nitro get me my hydrocodone Patient educated on therapeutic effects of nitro on chest pain, versus hydrocodone. Patient did not respond. Patient was given hydrcodone, nurse will reassess pain.
[2022-10-25] MEDS: ARIPiprazole 30 mg Tablet PO (09:28)
[2022-10-25 10:44] LABS: Glucose Point of Care 117 mg/dL (70-110)
--- NOTE | 2022-10-25 13:10 | ECG_ITS ---
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 Measurements Intervals [place] Rate: 62 P: 235 DE: 160 QRS: 251 QRSD: 86 T: -52 QT: 382 QTc: 391 Interpretive Statements ECTOPIC ATRIAL RHYTHM POSSIBLE RIGHT VENTRICULAR HYPERTROPHY [SOME/ALL OF: PROMINENT R IN V1, LATE TRANSITION, RAD, YUE, SSS] MODERATE T-WAVE ABNORMALITY, CONSIDER INFERIOR ISCHEMIA [-0.1+ mV T-WAVE IN II/aVF] Possible old inferior wall HI Compared to ECG 10/25/2022 04:13:16 Ectopic atrial rhythm now present Possible ischemia now present Sinus rhythm no longer present T-wave abnormality still present Electronically Signed On 10-26-2022 19:40:40 CDT by Ivis Drake M.D. [id number]
[2022-10-25] MEDS: nitroglycerin 0.4 mg sublingual Tablet SUBLINGUAL (13:20)
--- NOTE | 2022-10-25 14:10 | P.PN_ITS ---
Subjective Subjective: Hospital course, labs appreciated. Today morning seen in CSU. Patient had episode of sinus pause overnight hence was moved to CSU. On examination seen with multiple family members at bedside. Denies any nausea, vomiting, headache. Complaining of central chest pain radiating to back which has been similar for last 3 days aggravated on swallowing. Patient states it does not get better with nitro but gets better with hydrocodone. Patient takes 5 mg every 4 of hydrocodone at home as needed for history of vaginal cancer. Denies any chest pain on exertion. Denies any nausea, vomiting. Having meals during examination. Saturating well on 2 L of oxygen supplementation, heart rate running on the lower side at 57 bpm. Blood work appreciated for a stable CBC, hemoglobin stable at 11.3, CMP showing a potassium of 3.3 with a magnesium of 1.5, troponin cycle repeated again today and negative in 6 hours trend. Appreciate EKG and strips done earlier in the morning today and overnight. Vitals/I&O/Wt Last Vital Signs Temp 98.9 F 10/25/22 08:00 Pulse 57 L 10/25/22 12:00 Resp 22 H 10/25/22 12:00 BP 117/58 10/25/22 12:00 Pulse Ox 96 10/25/22 12:00 O2 Del Method Nasal Cannula 10/25/22 08:00 O2 Flow Rate 2 10/25/22 08:00 10/24/22 10/25/22 10/25/22 22:59 06:59 14:59 Intake Total 120 / 120 100 / 220 236 / 236 Output Total 100 / 100 Balance 120 / 120 0 / 120 236 / 236 Weight last 48 hrs Weight 86.183 kg Physical Exam Narrative: General: No acute distress, AO x3, NC oxygen supplementation HEENT: PERRLA, pupils bilaterally equal and reactive, superficial laceration present on left nostril and mild ecchymosis present under left lip down to chin Chest: Bilateral Novosel breath sounds all over lung botello with occasional rhonchi, CVS: S1-S2 regular, no murmurs, bradycardia, no gallops, no rubs Abdomen: Soft, nontender, no organomegaly, bowel sounds present, morbidly obese Neuro: No focal deficits, no facial deformity, AO x3, power 5/5 in all limbs Data 10/25/22 04:55 10/25/22 04:55 Micro: Microbiology 10/24/22 11:58 Urine Culture - Preliminary Urine,Clean Catch Gram Negative Rods Gram Negative Rods#2 A&P Assessment and plan (1) Syncope: (2) Bradycardia: (3) Chest pain: (4) Diastolic CHF: (5) Atherosclerotic heart disease of [place] coronary artery with unstable angina pectoris: (6) Hypertension: (7) Laceration of lower lip: (8) Hemochromatosis: Plan Recurrent syncopal events: Most likely in setting of sinus pauses along with bradycardia. No history of seizure in the past. Appreciate CT head and carotid Doppler results. Continue to hold off on beta-jasmin. Monitor telemetry. Recent Holter monitor did not show any significant pauses. CTA ruled out PE. We will follow-up echocardiogram results. Patient did have positive stress test and then an angiogram done in 06/12 where she was advised medical management for 60% LCx ostial stenosis. Patient complaining of occasional chest pain which are atypical in nature. The patient has repeat sinus pause even after holding beta-jasmin for more than 48 hours along with ongoing chest pain or any regional wall motion abnormality on echocardiogram we will plan for Lexiscan stress test. Troponin cycled and twice negative. History of CAD: Continue with home dose of aspirin, Brilinta. History of multiple PCI in the past. Complaining of occasional chest pain. Symptomatically atypical with negative troponin cycled x2 Sublingual nitroglycerin as needed. Morphine 1 mg every 6 hourly as needed. Start on Maalox 15 mg every 4 hourly. Rest of the plan as above. Replete potassium with target around 4, magnesium to target around 2. Possible history of type 2 diabetes mellitus: A1c 5. Ruled out. Hold off on insulin sliding scale. Hypertension: Goal blood pressure less than 140/90 mmHg. At home takes amlodipine 5 mg oral daily, Bumex 1 mg oral daily, carvedilol 25 mg twice daily, hydrochlorothiazide 25 mg twice daily, Imdur 30 mg daily, lisinopril 40 mg twice daily. Check orthostatics. Continue with lisinopril 40 mg oral daily at home. Uptitrate as per goal blood pressures. Holding off on beta-jasmin as above. Full code. Cardiac diet. Heparin 5000 every 12 hourly for DVT prophylaxis Protonix twice daily will suffice as DVT prophylaxis. Attestations Medical Necessity Statement*: Requires further hospitalization for management of significant bradycardia with sinus pauses in setting of chronic beta-jasmin use, chest pain under evaluation with history of CAD and multiple PCI Diagnoses Syncope R55 Bradycardia R00.1 Chest pain R07.9 Diastolic CHF I50.30 Atherosclerotic heart disease of [place] coronary artery with unstable angina pectoris I25.110 Hypertension I10 Laceration of lower lip S01.511A Hemochromatosis E83.119
[2022-10-25] MEDS: morphine 4 mg/mL SDV 1 mL 1 MG IVP (14:26)
[2022-10-25] MEDS: alum-mag-hydroxide-sime 30 mL UDC 15 ML PO (14:26)
[2022-10-25] MEDS: potassium chloride oral liq 20 mEq/15 mL UDC 80 MEQ PO (15:55)
[2022-10-25] MEDS: magnesium sulfate premix 2 GM/50 ML PIGGYBACK IV (15:56)
--- NOTE | 2022-10-25 16:24 | USCV_ITS ---
Le Barnhart Age: 57 Gender: F : 1965 Exam Date: 10/25/2022 11:50 Ordering Phys: Nba Fitzgerald MD Technologist: JAE Exam Location: [facility] [place] Indication: syncope BP: / HR: 55 Rhythm: Sinus Technical Quality: Adequate MEASUREMENTS (Male / Female) Normal Values 2D ECHO LV Diastolic Diameter PLAX 5.9 cm 4.2 - 5.9 / 3.9 - 5.3 cm LV Systolic Diameter PLAX 4.8 cm IVS Diastolic Thickness 1.0 cm 0.6 - 1.0 / 0.6 - 0.9 cm IVS Systolic Thickness 1.2 cm LVPW Diastolic Thickness 1.0 cm 0.6 - 1.0 / 0.6 - 0.9 cm LVPW Systolic Thickness 1.1 cm LVOT Diameter 2.5 cm LV Ejection Fraction 2D Teich 38.9 % LV Ejection Fraction MOD 2C 56.2 % LV Ejection Fraction 2C AL 55.7 % LA Diameter 3.1 cm IVC Diameter 1.7 cm M-MODE Aortic Annulus Diameter 2.9 cm LA Ao Ratio MM 1.2 MV E Point Septal Separation 0.6 cm DOPPLER AV Peak Velocity 127.0 cm/s LVOT Peak Velocity 99.0 cm/s AV Area Cont Eq vti 3.4 cm squared AV Area Cont Eq pk 3.9 cm squared MV Area PHT 3.3 cm squared Mitral E to A Ratio 1.0 MV E' Velocity 42.0 cm/s Mitral E to MV E' Ratio 8.2 Mitral E to LV E' Lateral Ratio 6.6 Mitral E to LV E' Septal Ratio 10.9 TV Peak E Velocity 88.0 cm/s PV Peak Velocity 103.0 cm/s FINDINGS Left Ventricle Normal left ventricular size and systolic function, EF 56 %. Right Ventricle The right ventricle is normal in size and function. Right Atrium The right atrium is normal in size. Left Atrium The left atrium is normal in size. Mitral Valve Trace mitral valve regurgitation. Aortic Valve No gross abnormalities noted. Tricuspid Valve No gross abnormalities noted Pulmonic Valve No gross abnormalities noted Pericardium Normal pericardium without effusion. Aorta Normal ascending aorta dimension. IVC The inferior vena cava appears normal. CONCLUSIONS Normal left ventricular size and systolic function, EF 56 %. No significant wall motion abnormality Trace mitral valve regurgitation. Normal cardiac chamber sizes No significant valvular abnormalities There is no pericardial effusion. Comparison with the previous study is difficult because of the difference in the technical quality. Dr Ivis Drake MD [facility] (Electronically Signed) Final Date: 26 October 2022 13:07 S
--- NOTE | 2022-10-25 16:24 | USR_ITS ---
PROCEDURE INFORMATION: Exam: US Duplex Bilateral Extracranial Arteries; Complete; Carotid Arteries Exam date and time: 10/25/2022 12:12 PM Age: 57 years old Clinical indication: Syncope and collapse TECHNIQUE: Imaging protocol: Real-time duplex ultrasound scan of the bilateral extracranial arteries combining mariscal scale, color Doppler and spectral waveform analysis with image documentation. Complete exam. Exam focused on the carotid arteries. COMPARISON: CT facial bones wo con* [id number] 10/21/2022 10:46 PM FINDINGS: Right common carotid artery: Unremarkable. No occlusion or stenosis. Waveforms are normal. Right internal carotid artery: Unremarkable. No occlusion or stenosis. Waveforms are normal. Right ICA/CCA ratio: Within normal limits. Right external carotid artery: No stenosis in the origin. Right vertebral artery: Unremarkable. Antegrade flow. Left common carotid artery: Unremarkable. No occlusion or stenosis. Waveforms are normal. Left internal carotid artery: Mild atherosclerotic plaque. Normal waveforms with elevated peak systolic velocity measuring 155 cm/s. Left ICA/CCA ratio: Within normal limits. Left external carotid artery: No stenosis in the origin. Left vertebral artery: Unremarkable. Antegrade flow. US/CV carotid duplex BI* [id number] IMPRESSION: 1. Mild left ICA stenosis. 2. No right ICA stenosis. REFERENCES: SRU CRITERIA. The degree of internal carotid artery stenosis is based on criteria defined by the Society of Radiologists in Ultrasound (SRU). Normal is no stenosis. Mild is less than 50% stenosis. Moderate is 50-69% stenosis. Severe is greater than 69% stenosis to near occlusion. Near occlusion is a markedly narrowed lumen. Total occlusion is no detectable patent lumen.
[2022-10-25 17:16] LABS: Glucose Point of Care 154 mg/dL (70-110)
[2022-10-25] MEDS: atorvastatin 40 mg Tablet PO (20:00)
[2022-10-25 20:54] LABS: Glucose Point of Care 161 mg/dL (70-110)
[2022-10-26] VITALS (8 sets, daily range): BP systolic 108–134; BP diastolic 53–66; PULSE 53–75; RESP 16–21; TEMP 36.3–36.9; O2SAT 91–98
[2022-10-26] MEDS: HYDROcodone-acetaminophen 7.5-325 mg Tablet 1 TAB PO ×3 (00:05→20:49)
[2022-10-26 04:40] LABS: Basophils % 0.8 %; Eosinophils # 0.2 10^3/uL (0.0-0.8); Eosinophils % 3.8 %; Hematocrit 36.7 % (37.0-47.0); Hemoglobin 11.8 g/dL (11.5-15.3); Lymphocytes # 1.4 10^3/uL (0.8-4.8); Lymphocytes % 29.2 %; Mean Corpuscular HGB Conc 32.2 g/dL (30.0-36.0); Mean Corpuscular Hemoglobin 34.2 pg (28.0-34.0); Mean Corpuscular Volume 106.4 fl (81-99); Mean Platelet Volume 9.6 fL (7.4-10.4); Monocytes # 0.4 10^3/uL (0.2-0.9); Monocytes % 8.9 %; Neutrophils # 2.62 10^3/uL (1.8-7.7); Neutrophils % 55.6 %; Nucleated Red Blood Cells % 0 %; Platelet Count 154 10^3/cmm (130-400); Red Blood Count 3.45 10^6/uL (4.1-5.3); Red Cell Distribution Width 15.7 % (12.1-15.1); White Blood Count 4.7 10^3/uL (4.0-10.0)
[2022-10-26 05:01] LABS: Alanine Aminotransferase 23 U/L (0-33); Albumin Level 3.6 g/dL (3.5-5.2); Alkaline Phosphatase 92 U/L (35-105); Anion Gap 13.9 (5-19); Aspartate Amino Transferase 14 U/L (0-32); Blood Urea Nitrogen 18 mg/dL (6-20); Calcium 8.5 mg/dL (8.5-10.5); Carbon Dioxide 29 mmol/L (22-29); Chloride 108 mmol/L (98-107); Creatinine Clr Calc Pharmacy 82.4225; Globulin 2.2 g/dL (1.3-4.6); Glomerular Filtration Rate 73.9 mL/min (90-130); Glucose 94 mg/dL (65-115); Osmolality Calculated 306 mOsm/kg (285-295); Potassium 3.9 mmol/L (3.5-5.1); Sodium 147 mmol/L (136-145); Total Bilirubin 0.2 mg/dL (0.15-1.2); Total Protein 5.8 g/dL (6.6-8.7)
[2022-10-26] MEDS: bumetanide 1 mg Tablet PO (06:09)
[2022-10-26 06:29] LABS: Glucose Point of Care 106 mg/dL (70-110)
[2022-10-26] MEDS: ticagrelor 90 mg Tablet PO ×2 (08:20→17:00)
[2022-10-26] MEDS: aspirin 81 mg EC Tablet PO (08:20)
[2022-10-26] MEDS: dextrose 5%-sod chloride 0.45% 1,000 ML 75 ML IV (08:20)
[2022-10-26] MEDS: buPROPion XL (24 HR) 300 mg Tablet PO (08:20)
[2022-10-26] MEDS: ARIPiprazole 30 mg Tablet PO (08:20)
[2022-10-26] MEDS: lisinopril 20 mg Tablet 40 MG PO (08:20)
[2022-10-26] MEDS: pantoprazole DR 40 mg Tablet PO ×2 (08:20→17:00)
[2022-10-26] MEDS: fluoxetine 20 mg Capsule 40 MG PO (08:20)
--- NOTE | 2022-10-26 11:53 | P.PN_ITS ---
Subjective Subjective: Today morning patient seen with multiple family members at bedside. Patient complaining of mild dizziness on standing up. Orthostatics negative. Did have 1 episode of fall yesterday evening when she was found by nursing staff sitting on the floor. Denies hitting her head. On review of medication she is been getting [place] 7.5 mg every 4 hours as needed along with IV morphine one-time and an extra dose of 7.5 mg of oxycodone yesterday evening. Patient has been complaining of chest pain which has been ongoing for last 1 month getting aggravated on movement and taking a deep breath. Denies any fall or changes in the pain. States [place]/pain medication has been increased recently for last 1 month. Otherwise patient did not have any episode of bradycardia/pauses on telemetry. Blood work shows stable CBC, CMP showing hypernatremia with sodium of 147 otherwise stable. Vitals/I&O/Wt Last Vital Signs Temp 98.4 F 10/26/22 04:00 Pulse 67 10/26/22 08:00 Resp 17 10/26/22 08:00 BP 119/63 10/26/22 08:00 Pulse Ox 98 10/26/22 08:00 O2 Del Method Room Air 10/26/22 08:00 O2 Flow Rate 2 10/26/22 08:00 10/25/22 10/26/22 10/26/22 22:59 06:59 14:59 Intake Total 2094 / 2330 720 / 3050 480 / 480 Output Total 1200 / 1200 Balance 894 / 1130 720 / 1850 480 / 480 Physical Exam Narrative: General: No acute distress, AO x3, NC oxygen supplementation HEENT: PERRLA, pupils bilaterally equal and reactive, superficial laceration present on left nostril and mild ecchymosis present under left lip down to chin Chest: Bilateral Novosel breath sounds all over lung botello with occasional rhonchi, CVS: S1-S2 regular, no murmurs, bradycardia, no gallops, no rubs Abdomen: Soft, nontender, no organomegaly, bowel sounds present, morbidly obese Neuro: No focal deficits, no facial deformity, AO x3, power 5/5 in all limbs Data 10/26/22 03:55 10/26/22 03:55 Micro: Microbiology 10/24/22 11:58 Urine Culture - Preliminary Urine,Clean Catch Gram Negative Rods Gram Negative Rods#2 A&P Assessment and plan (1) Syncope: (2) Bradycardia: (3) Chest pain: (4) Diastolic CHF: (5) 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 No history of seizure in the past. Appreciate CT head and carotid Doppler results. Continue to hold off on beta-jasmin. Monitor telemetry. Recent Holter monitor did not show any significant pauses. Physical therapy evaluation. Plan to walk patient around and monitor heart rate. CTA ruled out PE. Echocardiogram done but results pending. Patient did have positive stress test and then an angiogram done in 06/12 where she was advised medical management for 60% LCx ostial stenosis. Patient complaining of occasional chest pain which are atypical in nature. The patient has repeat sinus pause even after holding beta-jasmin for more than 48 hours along with ongoing chest pain or any regional wall motion abnormality on echocardiogram we will plan for Lexiscan stress test. Troponin cycled and twice negative. Multiple pain medications: Patient recently started on [place] 7.5 mg every 4 hours as needed. Definitely adding onto the symptoms. Discussed in detail with the patient. Patient is agreeable to decrease her medication intake. Changed [place] to 7.5 mg every 6 hourly. Add lidocaine patch. Physical therapy evaluation. History of CAD: Continue with home dose of aspirin, Brilinta. History of multiple PCI in the past. Complaining of occasional chest pain. Symptomatically atypical with negative troponin cycled x2 Sublingual nitroglycerin as needed. Morphine 1 mg every 6 hourly as needed. Start on Maalox 15 mg every 4 hourly. Rest of the plan as above. Replete potassium with target around 4, magnesium to target around 2. Possible history of type 2 diabetes mellitus: A1c 5. Ruled out. Hold off on insulin sliding scale. Hypertension: Goal blood pressure less than 140/90 mmHg. At home takes amlodipine 5 mg oral daily, Bumex 1 mg oral daily, carvedilol 25 mg twice daily, hydrochlorothiazide 25 mg twice daily, Imdur 30 mg daily, lisinopril 40 mg twice daily. Orthostatic negative Continue with lisinopril 40 mg oral daily at home. Uptitrate as per goal blood pressures. Holding off on beta-jasmin as above. Full code. Cardiac diet. Heparin 5000 every 12 hourly for DVT prophylaxis Protonix twice daily will suffice as DVT prophylaxis. 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
[2022-10-26 13:49] LABS: Homocysteine 12.58
[2022-10-26 14:03] LABS: Folate Level 8.6 ng/mL (4.8-37.3)
[2022-10-26] MEDS: atorvastatin 40 mg Tablet PO (20:09)
[2022-10-27] VITALS (9 sets, daily range): BP systolic 94–124; BP diastolic 58–88; PULSE 51–74; RESP 16–18; TEMP 36.6–36.8; O2SAT 92–98
[2022-10-27] MEDS: ondansetron 2 mg/ML SDV 2 mL 4 MG IVP (01:27)
[2022-10-27] MEDS: ARIPiprazole 30 mg Tablet PO (08:36)
[2022-10-27] MEDS: fluoxetine 20 mg Capsule 40 MG PO (08:36)
[2022-10-27] MEDS: pantoprazole DR 40 mg Tablet PO (08:36)
[2022-10-27] MEDS: ticagrelor 90 mg Tablet PO (08:37)
[2022-10-27] MEDS: aspirin 81 mg EC Tablet PO (08:37)
[2022-10-27] MEDS: buPROPion XL (24 HR) 300 mg Tablet PO (08:37)
[2022-10-27 09:00] LABS: Basophils % 0.6 %; Eosinophils # 0.2 10^3/uL (0.0-0.8); Eosinophils % 3.2 %; Hematocrit 34.8 % (37.0-47.0); Hemoglobin 11.3 g/dL (11.5-15.3); Lymphocytes # 0.8 10^3/uL (0.8-4.8); Lymphocytes % 16.4 %; Mean Corpuscular HGB Conc 32.5 g/dL (30.0-36.0); Mean Corpuscular Hemoglobin 33.6 pg (28.0-34.0); Mean Corpuscular Volume 103.6 fl (81-99); Mean Platelet Volume 9.4 fL (7.4-10.4); Monocytes # 0.3 10^3/uL (0.2-0.9); Monocytes % 5.9 %; Neutrophils # 3.48 10^3/uL (1.8-7.7); Neutrophils % 73.1 %; Nucleated Red Blood Cells % 0 %; Platelet Count 157 10^3/cmm (130-400); Red Blood Count 3.36 10^6/uL (4.1-5.3); Red Cell Distribution Width 15.2 % (12.1-15.1); White Blood Count 4.8 10^3/uL (4.0-10.0)
[2022-10-27 09:40] LABS: Alanine Aminotransferase 21 U/L (0-33); Albumin Level 3.2 g/dL (3.5-5.2); Alkaline Phosphatase 88 U/L (35-105); Aspartate Amino Transferase 17 U/L (0-32); Blood Urea Nitrogen 21 mg/dL (6-20); Calcium 8.5 mg/dL (8.5-10.5); Carbon Dioxide 27 mmol/L (22-29); Chloride 106 mmol/L (98-107); Creatinine Clr Calc Pharmacy 82.4225; Globulin 2.9 g/dL (1.3-4.6); Glomerular Filtration Rate 73.9 mL/min (90-130); Glucose 159 mg/dL (65-115); Osmolality Calculated 300 mOsm/kg (285-295); Sodium 142 mmol/L (136-145); Total Bilirubin 0.2 mg/dL (0.15-1.2); Total Protein 6.1 g/dL (6.6-8.7)
[2022-10-27 09:43] LABS: Anion Gap 12.6 (5-19); Potassium 3.6 mmol/L (3.5-5.1)
--- NOTE | 2022-10-27 13:52 | P.DS_ITS ---
Discharge Providers Date of Admission: 10/25/22 14:56 Date of Discharge: October 27, 2022 Attending Provider at Admission: Nba Fitzgerald MD Attending Provider at Discharge: Iggy Pinon MD Primary Care Provider: Ryann Burk Diagnoses at Discharge Discharge Diagnosis (1) Syncope: Status: Acute (2) Bradycardia: Status: Acute (3) Chest pain: Status: Acute (4) Diastolic CHF: Status: Acute (5) Atherosclerotic heart disease of crow coronary artery with unstable angina pectoris: Status: Acute (6) Hypertension: Status: Acute (7) Laceration of lower lip: Status: Acute (8) Hemochromatosis: Status: Acute (9) Fall: Status: Acute (10) Dizziness: Status: Acute (11) Polypharmacy: Status: Acute (12) Pain medication contract needed: Status: Acute Reason for Visit Reason for Visit: CP Brief History: History as per HPI: Le Barnhart is a 57 year old female with past medical history of bradycardia, coronary disease with 6 stents, history of vaginal cancer, on dual antiplatelet therapy and Coreg, 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 First episode was day before yesterday and second episode was today when she was using toilet patient stating that she was not straining at all all of a sudden she lost consciousness and next thing she knows she was on the ground and her called 911.? According to the family they noticed that her eyes were rolling back and she was not able to make eye contact and she was confused for a few seconds.? She never had any history of seizures no recent nausea, vomiting but patient is stating that she gets chest pressure on and off without any aggravating factors In the ER she was diagnosed with sinus bradycardia hemodynamically stable awake and alert, normal CBC and BMP, Patient is smoking on and off, last cigarette was 6 days ago Does not use oxygen at home She has been using Coreg Hospital Course Hospital Course Patient was admitted to the hospital further evaluation and management of syncope leading to fall and facial trauma. Her home medication of Coreg was withheld. During hospitalization patient had 1 episode of sinus pause which resolved gradually. Patient continued to have occasional episodes of bradycardia especially during the night while sleeping though was asymptomatic other than chronic dizziness. Patient's heart rate maintained at around 60 at rest and increasing up to 90 on ambulation without any help. During hospitalization patient had 1 more fall though did not have any head injury. Fall was thought to be related to excessive narcotic pain medications. Symptoms improved after changing the frequency of narcotics to every 6 hours as needed from every 4 hours as needed. Patient complained of occasional chest pain though troponin cycles done 2 times remain negative. She was found to have borderline normal blood pressure for which antihypertensives were adjusted. Multiple medications were withheld including hydrochlorothiazide, amlodipine, carvedilol. Plavix has been stopped. Patient is to continue taking Brilinta. Patient is not to take Coreg anymore. Dose of lisinopril was decreased to 20 mg daily. Patient is to continue checking her blood pressures at home and maintain a blood pressure diary and follow-up with a primary care provider within next 1 week for further adjustment of antihypertensive. Patient is also advised to have an event monitor placed for further evaluation and monitoring of bradycardia. Patient is to follow-up with nurse practitioner from [facility]/Yoselyn Woods within next 3 weeks and with cardiology within next 1 month. Discharge Data Studies Completed and Pending Completed Studies During Hospitalization Category Date Time Status CTA chest [CT angio chest PE protcl [id number]] Stat Cat Scan 10/24/22 11:21 Completed XR chest 1V portable [id number] Stat Exams 10/24/22 11:04 Completed CV carotid duplex BI* [id number] Routine Ultrasound 10/25/22 16:24 Completed CV. echo complete* [id number] Routine Ultrasound 10/25/22 16:24 Completed Radiology Impressions Chest X-Ray 10/24/22 11:04 Impression: Cardiomegaly Chest CTA 10/24/22 11:21 IMPRESSION: 1. No pulmonary embolism. 2. Status post RIGHT mastectomy. 3. No mediastinal or hilar adenopathy. 4. No pneumonia. 5. LEFT adrenal hyperplasia. Carotid Doppler Study 10/25/22 16:24 IMPRESSION: 1. Mild left ICA stenosis. 2. No right ICA stenosis. REFERENCES: SRU CRITERIA. The degree of internal carotid artery stenosis is based on criteria defined by the Society of Radiologists in Ultrasound (SRU). Normal is no stenosis. Mild is less than 50% stenosis. Moderate is 50-69% stenosis. Severe is greater than 69% stenosis to near occlusion. Near occlusion is a markedly narrowed lumen. Total occlusion is no detectable patent lumen. Laboratory Results WBC 4.8 10^3/uL (4.0-10.0) 10/27/22 08:37 RBC 3.36 10^6/uL (4.1-5.3) L 10/27/22 08:37 Hgb 11.3 g/dL (11.5-15.3) L 10/27/22 08:37 Hct 34.8 % (37.0-47.0) L 10/27/22 08:37 MCV 103.6 fl (81-99) H 10/27/22 08:37 MCH 33.6 pg (28.0-34.0) 10/27/22 08:37 MCHC 32.5 g/dL (30.0-36.0) 10/27/22 08:37 RDW 15.2 % (12.1-15.1) H 10/27/22 08:37 Plt Count 157 10^3/cmm (130-400) 10/27/22 08:37 MPV 9.4 fL (7.4-10.4) 10/27/22 08:37 Neut % (Auto) 73.1 % 10/27/22 08:37 Lymph % (Auto) 16.4 % 10/27/22 08:37 [place] % (Auto) 5.9 % 10/27/22 08:37 Eos % (Auto) 3.2 % 10/27/22 08:37 Baso % (Auto) 0.6 % 10/27/22 08:37 Neut # (Auto) 3.48 10^3/uL (1.8-7.7) 10/27/22 08:37 Lymph # (Auto) 0.8 10^3/uL (0.8-4.8) 10/27/22 08:37 [place] # (Auto) 0.3 10^3/uL (0.2-0.9) 10/27/22 08:37 Eos # (Auto) 0.2 10^3/uL (0.0-0.8) 10/27/22 08:37 Baso # (Auto) 0.0 10^3/uL (0.0-0.1) 10/27/22 08:37 Nucleated RBC % (auto) 0 % 10/27/22 08:37 Nucleated RBCs # 0.0 /100WBC 10/27/22 08:37 D-Dimer 0.77 ug/mIFEU (0-0.59) H 10/24/22 10:55 Sodium 142 mmol/L (136-145) 10/27/22 08:37 Potassium 3.6 mmol/L (3.5-5.1) 10/27/22 08:37 Chloride 106 mmol/L (98-107) 10/27/22 08:37 Carbon Dioxide 27 mmol/L (22-29) 10/27/22 08:37 Anion Gap 12.6 (5-19) 10/27/22 08:37 BUN 21 mg/dL (6-20) H 10/27/22 08:37 Creatinine 0.8 mg/dL (0.5-0.9) 10/27/22 08:37 GFR Calculation 73.9 mL/min (90-130) L 10/27/22 08:37 Glucose 159 mg/dL (65-115) H 10/27/22 08:37 POC Glucose 106 mg/dL (70-110) 10/26/22 06:24 Estimat Average Glucose 97 10/25/22 04:55 Hemoglobin A1c 5.0 % (4.0-6.0) 10/25/22 04:55 Calculated Osmolality 300 mOsm/kg (285-295) H 10/27/22 08:37 Calcium 8.5 mg/dL (8.5-10.5) 10/27/22 08:37 Phosphorus 4.2 mg/dL (2.5-4.5) 10/25/22 04:55 Magnesium 1.5 mg/dL (1.7-2.3) L 10/25/22 04:55 Total Bilirubin 0.2 mg/dL (0.15-1.2) 10/27/22 08:37 AST 17 U/L (0-32) 10/27/22 08:37 ALT 21 U/L (0-33) 10/27/22 08:37 Alkaline Phosphatase 88 U/L (35-105) 10/27/22 08:37 Troponin T Baseline 16 ng/L (0-10) H 10/25/22 04:55 Troponin T 120 Minute 11.34 ng/L (0-10) H 10/25/22 06:54 Delta Troponin T -4.66 ABS# (0-10) L 10/25/22 06:54 Troponin T Hi Sens 6Hr 14.30 ng/L (0-10) H 10/25/22 11:02 Troponin T Hi Sens 6Hr Delta -1.70 ng/L (0-12) L 10/25/22 11:02 C-Reactive Protein 15.4 mg/L (0.0-4.9) H 10/25/22 04:55 NT-Pro-B Natriuret Pep 337 pg/mL (0-125) H 10/24/22 10:55 Total Protein 6.1 g/dL (6.6-8.7) L 10/27/22 08:37 Albumin 3.2 g/dL (3.5-5.2) L 10/27/22 08:37 Globulin 2.9 g/dL (1.3-4.6) 10/27/22 08:37 Lipase 9 U/L (13-60) L 10/24/22 10:55 Vitamin B12 389 pg/mL (232-1245) 10/24/22 10:55 Folate 8.6 ng/mL (4.8-37.3) 10/26/22 13:04 Homocysteine 12.58 10/26/22 13:04 TSH 0.72 uIU/mL (0.27-4.20) 10/24/22 10:55 Prolactin 18.62 ng/mL (4.8-23.3) 10/24/22 10:55 Urine Color Yellow (Yellow) 10/24/22 11:58 Urine Appearance Hazy (CLEAR) A 10/24/22 11:58 Urine pH 6 (5-7) 10/24/22 11:58 Ur Specific [place] 1.005 (1.005-1.030) 10/24/22 11:58 Urine Protein Neg (Negative) 10/24/22 11:58 Urine Glucose (UA) Norm (Normal) 10/24/22 11:58 Urine Ketones Negative (Negative) 10/24/22 11:58 Urine Blood Neg (Negative) 10/24/22 11:58 Urine Nitrate Negative (Negative) 10/24/22 11:58 Urine Bilirubin Neg (Negative) 10/24/22 11:58 Urine Urobilinogen Norm mg/dL (Negative) 10/24/22 11:58 Ur Leukocyte Esterase 1+ (Negative) H 10/24/22 11:58 Urine RBC 0-4 /hpf (0-2) H 10/24/22 11:58 Urine WBC 15-25 /hpf (0-5) H 10/24/22 11:58 Ur Squamous Epith Cells 0-4 /hpf (0-5) H 10/24/22 11:58 Amorphous Sediment Not Reportable 10/24/22 11:58 Urine Bacteria 1+ /hpf (NONE) H 10/24/22 11:58 Vitals Last Vital Signs Temp 98.0 F 10/27/22 08:00 Pulse 69 10/27/22 08:00 Resp 18 10/27/22 08:00 BP 124/74 10/27/22 12:00 Pulse Ox 93 10/27/22 08:00 O2 Del Method Nasal Cannula 10/27/22 08:00 O2 Flow Rate 3 10/27/22 07:08 Discharge Plan Discharge Patient Disposition: Home Condition: Stable Prescriptions: Continued nitroglycerin 0.4 mg tablet, sublingual 0.4 mg sublingual Q5M PRN (Reason: chest pain) Qty: 30 2RF Rx Instructions: do not exceed 3 doses per episode bumetanide 1 mg tablet 1 mg PO QAM Qty: 90 2RF Rx Instructions: increase to 2mg daily for 3 days then reduce to 1mg daily. Take with potassium pantoprazole [Protonix] 40 mg tablet,delayed release (DR/EC) 40 mg PO BID 42 Days Qty: 84 1RF Brilinta 90 mg tablet 90 mg PO BID Qty: 180 2RF Hold Instructions: Resume on 09/20/22. lidocaine-prilocaine 2.5-2.5 % cream 1 applic topical ONCE Qty: 30 0RF Rx Instructions: Apply to port 30-45 minutes prior to access meloxicam 15 mg tablet 15 mg PO DAILY Hold Instructions: Resume on 09/20/22. albuterol sulfate 90 mcg/actuation HFA aerosol inhaler 2 inh INHALATION Q4H PRN (Reason: shortness of breath or wheezing) Qty: 18 0RF ondansetron 4 mg tablet,disintegrating 4 mg PO Q6H PRN (Reason: nausea and vomiting) Qty: 14 0RF Rexulti 0.5 mg Tablet 0.5 mg PO DAILY albuterol sulfate 2.5 mg /3 mL (0.083 %) solution for nebulization 2.5 mg inhalation Q4H PRN (Reason: Shortness Of Breath) aspirin 81 mg Tablet,Delayed Release (Dr/Ec) 81 mg PO QAM hydroxyzine HCl 25 mg tablet 25 - 50 mg PO QID PRN (Reason: Anxiety) fluoxetine 40 mg capsule 40 mg PO DAILY atorvastatin 40 mg tablet 40 mg PO BEDTIME hydrocodone-acetaminophen 7.5-325 mg tablet 1 tab PO Q4H PRN (Reason: Pain) ibuprofen 400 mg tablet 400 mg PO Q8H PRN (Reason: Pain) aripiprazole 30 mg tablet 30 mg PO DAILY bupropion HCl 300 mg tablet extended release 24 hr 300 mg PO DAILY Changed lisinopril 40 mg tablet 20 mg PO DAILY Qty: 30 0RF Held isosorbide mononitrate 30 mg tablet extended release 24 hr 30 mg PO DAILY Hold Instructions: Resume on 11/03/22. Discontinued amlodipine 5 mg tablet 5 mg PO DAILY Qty: 30 5RF hydrochlorothiazide 25 mg tablet 25 mg PO BID carvedilol 25 mg tablet 25 mg PO BID 30 Days Qty: 60 0RF Rx Instructions: must administer with a meal/food clopidogrel 75 mg tablet 75 mg PO DAILY Discharge Orders: Discharge Order (Routine); Ordered 10/27/22 Ordered By: Iggy Pinon Other Ambulatory Orders: MCT/Event Monitor 21 Days (Routine) Timeframe: 1 Week Facility: [facility] - Location: Radiology Ordered By: Iggy Pinon DME: Ge (Order) Location: None Selected Ordered By: Iggy Pinon Referrals: Ivis Drake MD [Physician] - 2 months Yoselyn Woods FNP [Nurse Practitioner] - 11/03/22 1:15 pm (Also, you will have your 21 day event monitor placed to follow your appointment with Yoselyn Woods. This appointment is schedule for 1:45P.M. If you have any questions or need to reschedule please call ) Ryann Burk [Primary Care Provider] - 10/29/22 2:15 pm Discharge Diet: Cardiac and Diabetic Discharge Activity: Resume usual activity and Increase activity as tolerated Patient Instructions: Heart Failure (DC), Syncope (DC), Bradycardia (DC), CHF Stoplight, Chest Pain Stoplight, Opioid Safety Activity Restrictions/Additional Instructions: Multiple antihypertensives have been withheld. Do not take amlodipine, carvedilol and hydrochlorothiazide anymore. Dose of lisinopril has been changed to 20 mg daily. Imdur has been withheld. Check her blood pressures daily at home and maintain a blood pressure diary and follow-up with a primary care provider and with Yoselyn Woods within next 10 days for further adjustment of antihypertensives as needed. Continue with your event monitor as described in detail. Please try to cut down on your pain medications/hydrocodone as much as possible. Brilinta has been continued, Plavix has been stopped. Discharge Attestations Time Spent in Discharge Care*: greater than 30 min Specific Discharge Activities: educating patient, educating and/or supporting family/caregiver, discussing with pcp/other providers, discussing with case therapist/social workers/dc planners, documenting/other paperwork and evaluating patient/reviewing data Status at Discharge: Cognitive status at discharge: cognitively intact , Behavioral status at discharge: can be uncooperative , Functional status at discharge: independent ambulation , Overall status at discharge: patient is progressing back to baseline Quality Metrics Clinical Quality Measures [ No reported AMI, CVA or VTE this stay] Coding Level of Care Code 22358 Total time (in minutes) for Discharge: 60 Diagnoses Syncope R55 Bradycardia R00.1 Chest pain R07.9 Diastolic CHF I50.30 Atherosclerotic heart disease of crow coronary artery with unstable angina pectoris I25.110 Hypertension I10 Laceration of lower lip S01.511A Hemochromatosis E83.119 Fall W19.XXXA Dizziness R42 Polypharmacy Z79.899 Pain medication contract needed
--- NOTE | 2022-10-27 14:36 | PC.NURSE ---
Discharge Note Patient discharged to [home] via [wheelchair] accompanied by [family]. Discharge instructions reviewed with patient and/or sales and service representative. Mobile pharmacy medications and/or prescriptions provided. Belongings/home medications returned.
[2022-10-27 15:10] LABS: Cortisol Random 9.43 ug/dL (2.47-19.5)
[2022-10-30 21:04] LABS: Adrenocorticotropic Hormone 8 pg/mL (6-50)
== END 2022-10-27 14:33 | disposition home or self-care (01) | DRG 309 ==
LOC: ER 13:52 → MEDSURG 15:30 → CSU 10-25 04:37
PROVIDERS: Internal Medicine; Admitting Provider Internal Medicine; Emergency Provider Emergency Medicine; PCP Family Medicine; Visit Provider Student in an Organized Health Care Education/Training Program
DX: R00.1 Bradycardia, unspecified (principal); E87.0 Hyperosmolality and hypernatremia; I25.110 Atherosclerotic heart disease of native coronary artery with unstable angina pectoris; I50.32 Chronic diastolic (congestive) heart failure; R55 Syncope and collapse; I11.0 Hypertensive heart disease with heart failure; Z95.5 Presence of coronary angioplasty implant and graft; S01.511A Laceration without foreign body of lip, initial encounter; W18.30XA Fall on same level, unspecified, initial encounter; Z85.89 Personal history of malignant neoplasm of other organs and systems; F17.210 Nicotine dependence, cigarettes, uncomplicated; Z79.02 Long term (current) use of antithrombotics/antiplatelets; Z79.51 Long term (current) use of inhaled steroids; Z79.891 Long term (current) use of opiate analgesic; E83.119 Hemochromatosis, unspecified; Z92.21 Personal history of antineoplastic chemotherapy; Z92.3 Personal history of irradiation; R94.39 Abnormal result of other cardiovascular function study; T40.605A Adverse effect of unspecified narcotics, initial encounter
CPT/HCPCS: 36415; 36416; 71045; 71275; 80048; 80053; 81001; 81015; 82024; 82533; 82607; 82746; 82962; 83036; 83090; 83690; 83735; 83880; 84100; 84146; 84443; 84484; 85025; 85378; 86140; 87077; 87086; 87186; 93005; 93306; 93880; 94760; 96372; 96374; 96375; 96376; 97116; 97161; 97530; 99195; 99285; G0378; J1642; J1815; J2270; J2405; J3475; J7799; Q9967

== ENCOUNTER → 2022-11-03 11:46 | Outpatient (BNVA) | payer MEDICAID, SELFPAY | PROVIDERS: PCP Family Medicine; Visit Provider Nurse Practitioner Family | DX: R55 Syncope and collapse (principal); I10 Essential (primary) hypertension; Z87.891 Personal history of nicotine dependence; I49.5 Sick sinus syndrome | CPT/HCPCS: 93270; 99213 ==

== ENCOUNTER 2022-11-11 11:00 | Oncology outpatient (recurring) (ONCR) | payer MEDICAID, SELFPAY ==
[2022-10-23 08:15] VITALS: BP 120/75; PULSE 65; TEMP 36.4; O2SAT 91
[2022-10-23 09:20] VITALS: BP 143/72; PULSE 95; RESP 18; TEMP 36; O2SAT 95
[2022-11-11 10:27] VITALS: BP 108/69; PULSE 70; RESP 18; TEMP 36.6; O2SAT 94
[2022-11-11 10:55] LABS: Basophils % 0.5 %; Eosinophils # 0.2 10^3/uL (0.0-0.8); Eosinophils % 2.6 %; Hemoglobin 12.7 g/dL (11.5-15.3); Lymphocytes # 1.3 10^3/uL (0.8-4.8); Lymphocytes % 19.9 %; Mean Corpuscular HGB Conc 33.4 g/dL (30.0-36.0); Mean Corpuscular Hemoglobin 34.3 pg (28.0-34.0); Mean Corpuscular Volume 102.7 fl (81-99); Mean Platelet Volume 9.2 fL (7.4-10.4); Monocytes # 0.6 10^3/uL (0.2-0.9); Monocytes % 8.9 %; Neutrophils # 4.33 10^3/uL (1.8-7.7); Neutrophils % 67.5 %; Nucleated Red Blood Cells % 0 %; Platelet Count 158 10^3/cmm (130-400); White Blood Count 6.4 10^3/uL (4.0-10.0)
[2022-11-11 11:13] LABS: Alanine Aminotransferase 18 U/L (0-33); Albumin Level 3.8 g/dL (3.5-5.2); Alkaline Phosphatase 95 U/L (35-105); Anion Gap 11.1 (5-19); Aspartate Amino Transferase 13 U/L (0-32); Blood Urea Nitrogen 18 mg/dL (6-20); Calcium 9.1 mg/dL (8.5-10.5); Carbon Dioxide 26 mmol/L (22-29); Chloride 112 mmol/L (98-107); Ferritin 127 ng/mL (15-150); Globulin 2.8 g/dL (1.3-4.6); Glomerular Filtration Rate 73.9 mL/min (90-130); Glucose 101 mg/dL (65-115); Osmolality Calculated 302 mOsm/kg (285-295); Potassium 4.1 mmol/L (3.5-5.1); Sodium 145 mmol/L (136-145); Total Bilirubin 0.2 mg/dL (0.15-1.2); Total Protein 6.6 g/dL (6.6-8.7)
== END 2022-11-20 23:59 | disposition home or self-care (01) ==
PROVIDERS: Nurse Practitioner Family; PCP Family Medicine; Visit Provider Internal Medicine Medical Oncology
DX: E83.119 Hemochromatosis, unspecified (principal)
CPT/HCPCS: 36415; 80053; 82728; 85025; 99195; J1642

== ENCOUNTER 2022-11-15 16:28 | Emergency (ER) | payer MEDICAID, SELFPAY ==
[2022-11-15] VITALS (8 sets, daily range): BP systolic 110–146; BP diastolic 58–88; PULSE 63–79; RESP 14–18; TEMP 37.3; O2SAT 92–97; BMI 32.9
--- NOTE | 2022-11-15 16:37 | ECG_ITS ---
[facility] Test Date: 2022-11-15 Pat Name: Le Barnhart Department: Room: Gender: Female [employer]: : 1965 Requested By: Ernesto Barnes Order Number: [id number] Jessica MD: David Escalante M.D. Measurements Intervals [place] Rate: 67 P: -9 TX: 174 QRS: 0 QRSD: 85 T: 64 QT: 354 QTc: 375 Interpretive Statements SINUS RHYTHM LEFT VENTRICULAR HYPERTROPHY AND ST-T CHANGE [VOLTAGE CRITERIA PLUS ST/T ABNORMALITY] Compared to ECG 10/25/2022 13:18:12 Left ventricular hypertrophy now present ST (T wave) deviation now present Ectopic atrial rhythm no longer present Atrial abnormality no longer present T-wave abnormality no longer present Possible ischemia no longer present Myocardial infarct finding no longer present Electronically Signed On 11-15-2022 17:11:43 CDT by David Escalante M.D. [id number]
--- NOTE | 2022-11-15 17:25 | XRR_ITS ---
PROCEDURE INFORMATION: Exam: XR Chest Exam date and time: 11/15/2022 5:43 PM Age: 57 years old Clinical indication: Cough; Additional info: Dyspnea/cough TECHNIQUE: Imaging protocol: Radiologic exam of the chest. Views: 1 view. COMPARISON: CR XR chest 1V portable [id number] 10/24/2022 11:16 AM FINDINGS: Tubes, catheters and devices: Stable right Mediport catheter. Metallic recorder device over the anterior chest wall. Lungs: Unremarkable. No consolidation. Pleural spaces: Unremarkable. No pleural effusion. No pneumothorax. Heart/Mediastinum: Unremarkable. No cardiomegaly. Bones/joints: Stable postoperative metallic fixation of the cervical spine with or without metallic artifact. XR/XR chest 1V portable [id number] IMPRESSION: 1. Stable right Mediport catheter. 2. Metallic recorder device over the anterior chest wall. 3. No acute findings.
--- NOTE | 2022-11-15 17:31 | ED_ITS ---
Documented by User: Ernesto Still DO 11/16/22 08:34 HPI - SOB/Dyspnea General: Chief Complaint: Shortness of Breath/Dyspnea Stated Complaint: chest presure / sob Time Seen by Provider: 11/15/22 16:37 Source: patient Mode of arrival: ambulatory History of Present Illness: HPI Narrative: 57-year-old female presents emergency complaining of intermittent short of breath feels like she get a catch in her chest at times. She she has a chest pressure. She did take aspirin and nitro at home with no relief after the nitro. She has had symptoms intermittently for 3 days. She had a Holter monitor on for a week. She has a known history of coronary artery disease had an angiogram earlier this year there is one stent that was patent there are some other areas with noncritical disease that were treated medically. She has a history of COPD as well. MD elicited complaint: shortness of breath Pertinent past history: COPD Onset (ago): hour(s) Timing: constant Severity: mild Exacerbating factors: exertion and inspiration Relieving factors: nothing Known history of: COPD Associated symptoms: Reports no associated symptoms, chest pain and other; Deny abdominal pain, chest congestion, cough, diaphoresis, dizziness, extremity pain, fever(s), hemoptysis, lightheadedness, myalgias, nausea, orthopnea, palpitations, paresthesias, polydipsia, polyuria, rash, sense of impending doom, syncope or vomiting Review of Systems Const: Denies: fever(s), chills or diaphoresis ENMT: Denies: throat pain, ear or mastoid pain, nasal discharge or nasal congestion Card: Reports: chest pain; Denies: palpitations, lightheadedness, syncope or orthopnea Resp: Reports: dyspnea; Denies: productive cough, non-productive cough, hemoptysis or chest congestion GI: Denies: abdominal pain, nausea or vomiting : Denies: flank pain, difficulty voiding, dysuria, urinary frequency or urinary urgency Musc: Denies: extremity pain Skin/Breast: Denies: rash or pruritus Neuro: Denies: dizziness Endo: Denies: polyuria or polydipsia PFS ED PFSH: Medical History Atherosclerotic heart disease of [place] coronary artery with unstable angina pectoris CAD (coronary artery disease) Cirrhosis COPD (chronic obstructive pulmonary disease) Hemochromatosis Hemochromatosis Hypertension Nocturnal hypoxia NSAID long-term use Smoking addiction Status post chemoradiation Vaginal tumors Surgical History H/O vaginal surgery Hx of appendectomy Hx of colonoscopy with polypectomy 10 yrs ago Family History Denies family history of Colon cancer Ovarian cancer Diabetes Heart disease Hypercholesteremia Breast cancer Hypertension Uterine cancer Thyroid disease Stroke Social History Smoking and tobacco status: former smoker Quit status (tobacco): quit date established Planned quit date: 05/27/22 Alcohol intake: never Substance/Drug Use: never Lives independently: Yes Household members: significant other Marital status: Single Physical Exam Const: COMMON NORMALS: no acute distress GENERAL APPEARANCE: cooperative and comfortable ORIENTATION/CONSCIOUSNESS: Yes awake, Yes oriented to person, Yes oriented to place and Yes oriented to time HENMT: COMMON NORMALS: normocephalic, atraumatic and hearing grossly normal bilaterally HEAD & SCALP: normocephalic and atraumatic Resp: COMMON NORMALS: normal respiratory effort, No retractions, No use of accessory muscles and clear to auscultation bilaterally AUSCULTATION: clear to auscultation bilaterally Cardio: COMMON NORMALS: regular rate, regular rhythm and No murmurs present (Cardio) RATE: regular rate RHYTHM: regular rhythm GI: COMMON NORMALS: Soft to palpation and No hepatosplenomegaly present AUSCULTATION: Yes normoactive bowel sounds PALPATION: Yes Soft to palpation, No Tenderness to palpation present (GI), No Guarding due to palpation present (GI) and Yes No hepatosplenomegaly present Extremity: COMMON NORMALS: normal to inspection, capillary refill normal, no clubbing, cyanosis or edema, no calf tenderness and no pedal edema Neuro: SENSORIUM/ORIENTATION: Yes oriented to person, Yes oriented to place and Yes oriented to time Skin: COMMON NORMALS: no rashes or lesions noted GENERAL SKIN EXAM: no rashes or lesions noted Course Vital Signs: Vital signs: Vital Signs Temperature 99.1 F 11/15/22 16:39 Pulse Rate 66 11/15/22 20:30 Respiratory Rate 18 11/15/22 20:30 Blood Pressure 110/88 11/15/22 20:30 Pulse Oximetry 94 11/15/22 20:30 Oxygen Delivery Me thod Room Air 11/15/22 20:00 MDM - SOB/Dyspnea Medical Decision Making Labs and imaging pending. Care signed out to Dr. Lovell at change of shift. See final notes for diagnosis and disposition. 57-year-old female checked out to me at shift change by Dr. Massey. She has a history of COPD. She has a Holter monitor on for low heart rate history. She has a catch in her chest. She was given Solu-Medrol, DuoNeb treatment, and morphine for this. It seems to have helped. She is having less symptoms now. Her CBC shows a platelet count of 156 and is otherwise normal. Her creatinine is 23. Labs including delta troponin are otherwise not remarkable. Her EKG shows a sinus rhythm, meeting LVH criteria without any acute ST changes. Chest x-ray is nonacute. She will be discharged with treatment for COPD, and follow- up as an outpatient. She agrees to this plan. She will return for worsening symptoms. Lab Data 11/15/22 17:38 11/15/22 17:38 Labs/Radiology: Radiology Impressions Chest X-Ray 11/15/22 17:25 IMPRESSION: 1. Stable right Mediport catheter. 2. Metallic recorder device over the anterior chest wall. 3. No acute findings. Laboratory Results WBC 6.67 10^3/uL (3.29-11.43) 11/15/22 17:38 RBC 3.73 10^6/uL (3.85-5.65) L 11/15/22 17:38 Hgb 13.00 g/dL (11.27-16.99) 11/15/22 17:38 Hct 38.0 % (36-47) 11/15/22 17:38 MCV 101.9 fl (85-98) H 11/15/22 17:38 MCH 34.9 pg (27-33) H 11/15/22 17:38 MCHC 34.2 g/dL (30-55) 11/15/22 17:38 RDW 15.9 % (12.1-15.1) H 11/15/22 17:38 Plt Count 156 10^3/cmm (157-399) L 11/15/22 17:38 MPV 9.3 fL (7.4-10.4) 11/15/22 17:38 Neut % (Auto) 72.0 % 11/15/22 17:38 Lymph % (Auto) 16.0 % 11/15/22 17:38 [place] % (Auto) 8.5 % 11/15/22 17:38 Eos % (Auto) 2.4 % 11/15/22 17:38 Baso % (Auto) 0.4 % 11/15/22 17:38 Neut # (Auto) 4.79 10^3/uL (1.8-7.7) 11/15/22 17:38 Lymph # (Auto) 1.1 10^3/uL (0.8-4.8) 11/15/22 17:38 [place] # (Auto) 0.6 10^3/uL (0.2-0.9) 11/15/22 17:38 Eos # (Auto) 0.2 10^3/uL (0.0-0.8) 11/15/22 17:38 Baso # (Auto) 0.0 10^3/uL (0.0-0.1) 11/15/22 17:38 Nucleated RBC % (auto) 0 % 11/15/22 17:38 Nucleated RBCs # 0.0 /100WBC 11/15/22 17:38 Sodium 144 mmol/L (136-145) 11/15/22 17:38 Potassium 3.5 mmol/L (3.5-5.1) 11/15/22 17:38 Chloride 109 mmol/L (98-107) H 11/15/22 17:38 Carbon Dioxide 24 mmol/L (22-29) 11/15/22 17:38 Anion Gap 14.5 (5-19) 11/15/22 17:38 BUN 23 mg/dL (6-20) H 11/15/22 17:38 Creatinine 1.1 mg/dL (0.5-0.9) H 11/15/22 17:38 GFR Calculation 51.2 mL/min (90-130) L 11/15/22 17:38 Glucose 106 mg/dL (65-115) 11/15/22 17:38 Calculated Osmolality 302 mOsm/kg (285-295) H 11/15/22 17:38 Calcium 9.0 mg/dL (8.5-10.5) 11/15/22 17:38 Total Bilirubin 0.3 mg/dL (0.15-1.2) 11/15/22 17:38 AST 13 U/L (0-32) 11/15/22 17:38 ALT 18 U/L (0-33) 11/15/22 17:38 Alkaline Phosphatase 115 U/L (35-105) H 11/15/22 17:38 Troponin T Baseline 12 ng/L (0-10) H 11/15/22 17:38 Troponin T 120 Minute 10.82 ng/L (0-10) H 11/15/22 19:15 Delta Troponin T -1.18 ABS# (0-10) L 11/15/22 19:15 Total Protein 6.5 g/dL (6.6-8.7) L 11/15/22 17:38 Albumin 3.8 g/dL (3.5-5.2) 11/15/22 17:38 Globulin 2.7 g/dL (1.3-4.6) 11/15/22 17:38 Discharge Plan Discharge Patient Disposition: Home Clinical Impression: Chest pain, Acute exacerbation of chronic obstructive airways disease Condition: Stable Prescriptions: New Medrol (Alessandro) 4 mg tablets,dose pack See Rx Instructions .ROUTE .COMPLEX Qty: 21 0RF Rx Instructions: orally per package directions No Action nitroglycerin 0.4 mg tablet, sublingual 0.4 mg sublingual Q5M PRN (Reason: chest pain) Qty: 30 2RF Rx Instructions: do not exceed 3 doses per episode bumetanide 1 mg tablet 1 mg PO QAM Qty: 90 2RF Rx Instructions: increase to 2mg daily for 3 days then reduce to 1mg daily. Take with potassium pantoprazole [Protonix] 40 mg tablet,delayed release (DR/EC) 40 mg PO BID 42 Days Qty: 84 1RF Brilinta 90 mg tablet 90 mg PO BID Qty: 180 2RF Hold Instructions: Resume on 09/20/22. amlodipine 2.5 mg tablet 2.5 mg PO DAILY Qty: 30 4RF lidocaine-prilocaine 2.5-2.5 % cream 1 applic topical ONCE Qty: 30 0RF Rx Instructions: Apply to port 30-45 minutes prior to access metoprolol tartrate 25 mg tablet 25 mg PO BID Qty: 180 3RF meloxicam 15 mg tablet 15 mg PO DAILY Hold Instructions: Resume on 09/20/22. albuterol sulfate 90 mcg/actuation HFA aerosol inhaler 2 inh INHALATION Q4H PRN (Reason: shortness of breath or wheezing) Qty: 18 0RF ondansetron 4 mg tablet,disintegrating 4 mg PO Q6H PRN (Reason: nausea and vomiting) Qty: 14 0RF Rexulti 0.5 mg Tablet 0.5 mg PO DAILY albuterol sulfate 2.5 mg /3 mL (0.083 %) solution for nebulization 2.5 mg inhalation Q4H PRN (Reason: Shortness Of Breath) aspirin 81 mg Tablet,Delayed Release (Dr/Ec) 81 mg PO QAM hydroxyzine HCl 25 mg tablet 25 - 50 mg PO QID PRN (Reason: Anxiety) fluoxetine 40 mg capsule 40 mg PO DAILY atorvastatin 40 mg tablet 40 mg PO BEDTIME isosorbide mononitrate 30 mg tablet extended release 24 hr 30 mg PO DAILY Hold Instructions: Resume on 11/03/22. hydrocodone-acetaminophen 7.5-325 mg tablet 1 tab PO Q4H PRN (Reason: Pain) ibuprofen 400 mg tablet 400 mg PO Q8H PRN (Reason: Pain) aripiprazole 30 mg tablet 30 mg PO DAILY bupropion HCl 300 mg tablet extended release 24 hr 300 mg PO DAILY lisinopril 40 mg tablet 20 mg PO DAILY Qty: 30 0RF Discharge Orders: Discharge ED (Routine); Ordered 11/15/22 Ordered By: Sergio Lovell Referrals: Ryann Burk [Primary Care Provider] - Patient Instructions: Chest Pain (ED), COPD (Chronic Obstructive Pulmonary Disease) (ED), Opioid Safety, Pain Management Activity Restrictions/Additional Instructions: Use your albuterol at home every 4 hours while awake for the next 48 hours scheduled, then as needed following that. Other medication as directed. Return for worsening pain or shortness of breath despite treatment. See your doctor this coming week. Coding Level of Care Code ED Urgent Care Physician Assistant for Chg Fwd Documented by User: Sergio Lovell DO 11/16/22 16:58 HPI - SOB/Dyspnea General: Chief Complaint: Shortness of Breath/Dyspnea Stated Complaint: chest presure / sob Time Seen by Provider: 11/15/22 16:37 PFSH ED PFSH: Medical History Atherosclerotic heart disease of [place] coronary artery with unstable angina pectoris CAD (coronary artery disease) Cirrhosis COPD (chronic obstructive pulmonary disease) Hemochromatosis Hemochromatosis Hypertension Nocturnal hypoxia NSAID long-term use Smoking addiction Status post chemoradiation Vaginal tumors Surgical History H/O vaginal surgery Hx of appendectomy Hx of colonoscopy with polypectomy 10 yrs ago Family History Denies family history of Colon cancer Ovarian cancer Diabetes Heart disease Hypercholesteremia Breast cancer Hypertension Uterine cancer Thyroid disease Stroke Social History Smoking and tobacco status: former smoker Quit status (tobacco): quit date established Planned quit date: 05/27/22 Alcohol intake: never Substance/Drug Use: never Lives independently: Yes Household members: significant other Marital status: Single Course Vital Signs: Vital signs: Vital Signs Temperature 99.1 F 11/15/22 16:39 Pulse Rate 66 11/15/22 20:30 Respiratory Rate 18 11/15/22 20:30 Blood Pressure 110/88 11/15/22 20:30 Pulse Oximetry 94 11/15/22 20:30 Oxygen Delivery Me thod Room Air 11/15/22 20:00 MDM - SOB/Dyspnea Medical Decision Making 57-year-old female checked out to me at shift change by Dr. Massey. She has a history of COPD. She has a Holter monitor on for low heart rate history. She has a catch in her chest. She was given Solu-Medrol, DuoNeb treatment, and morphine for this. It seems to have helped. She is having less symptoms now. Her CBC shows a platelet count of 156 and is otherwise normal. Her creatinine is 23. Labs including delta troponin are otherwise not remarkable. Her EKG shows a sinus rhythm, meeting LVH criteria without any acute ST changes. Chest x-ray is nonacute. She will be discharged with treatment for COPD, and follow- up as an outpatient. She agrees to this plan. She will return for worsening symptoms. Lab Data 11/15/22 17:38 11/15/22 17:38 Labs/Radiology: Radiology Impressions Chest X-Ray 11/15/22 17:25 IMPRESSION: 1. Stable right Mediport catheter. 2. Metallic recorder device over the anterior chest wall. 3. No acute findings. Laboratory Results WBC 6.67 10^3/uL (3.29-11.43) 11/15/22 17:38 RBC 3.73 10^6/uL (3.85-5.65) L 11/15/22 17:38 Hgb 13.00 g/dL (11.27-16.99) 11/15/22 17:38 Hct 38.0 % (36-47) 11/15/22 17:38 MCV 101.9 fl (85-98) H 11/15/22 17:38 MCH 34.9 pg (27-33) H 11/15/22 17:38 MCHC 34.2 g/dL (30-55) 11/15/22 17:38 RDW 15.9 % (12.1-15.1) H 11/15/22 17:38 Plt Count 156 10^3/cmm (157-399) L 11/15/22 17:38 MPV 9.3 fL (7.4-10.4) 11/15/22 17:38 Neut % (Auto) 72.0 % 11/15/22 17:38 Lymph % (Auto) 16.0 % 11/15/22 17:38 Fannin % (Auto) 8.5 % 11/15/22 17:38 Eos % (Auto) 2.4 % 11/15/22 17:38 Baso % (Auto) 0.4 % 11/15/22 17:38 Neut # (Auto) 4.79 10^3/uL (1.8-7.7) 11/15/22 17:38 Lymph # (Auto) 1.1 10^3/uL (0.8-4.8) 11/15/22 17:38 Fannin # (Auto) 0.6 10^3/uL (0.2-0.9) 11/15/22 17:38 Eos # (Auto) 0.2 10^3/uL (0.0-0.8) 11/15/22 17:38 Baso # (Auto) 0.0 10^3/uL (0.0-0.1) 11/15/22 17:38 Nucleated RBC % (auto) 0 % 11/15/22 17:38 Nucleated RBCs # 0.0 /100WBC 11/15/22 17:38 Sodium 144 mmol/L (136-145) 11/15/22 17:38 Potassium 3.5 mmol/L (3.5-5.1) 11/15/22 17:38 Chloride 109 mmol/L (98-107) H 11/15/22 17:38 Carbon Dioxide 24 mmol/L (22-29) 11/15/22 17:38 Anion Gap 14.5 (5-19) 11/15/22 17:38 BUN 23 mg/dL (6-20) H 11/15/22 17:38 Creatinine 1.1 mg/dL (0.5-0.9) H 11/15/22 17:38 GFR Calculation 51.2 mL/min (90-130) L 11/15/22 17:38 Glucose 106 mg/dL (65-115) 11/15/22 17:38 Calculated Osmolality 302 mOsm/kg (285-295) H 11/15/22 17:38 Calcium 9.0 mg/dL (8.5-10.5) 11/15/22 17:38 Total Bilirubin 0.3 mg/dL (0.15-1.2) 11/15/22 17:38 AST 13 U/L (0-32) 11/15/22 17:38 ALT 18 U/L (0-33) 11/15/22 17:38 Alkaline Phosphatase 115 U/L (35-105) H 11/15/22 17:38 Troponin T Baseline 12 ng/L (0-10) H 11/15/22 17:38 Troponin T 120 Minute 10.82 ng/L (0-10) H 11/15/22 19:15 Delta Troponin T -1.18 ABS# (0-10) L 11/15/22 19:15 Total Protein 6.5 g/dL (6.6-8.7) L 11/15/22 17:38 Albumin 3.8 g/dL (3.5-5.2) 11/15/22 17:38 Globulin 2.7 g/dL (1.3-4.6) 11/15/22 17:38 Discharge Plan Discharge Patient Disposition: Home Clinical Impression: Chest pain, Acute exacerbation of chronic obstructive airways disease Condition: Stable Prescriptions: New Medrol (Alessandro) 4 mg tablets,dose pack See Rx Instructions .ROUTE .COMPLEX Qty: 21 0RF Rx Instructions: orally per package directions No Action nitroglycerin 0.4 mg tablet, sublingual 0.4 mg sublingual Q5M PRN (Reason: chest pain) Qty: 30 2RF Rx Instructions: do not exceed 3 doses per episode bumetanide 1 mg tablet 1 mg PO QAM Qty: 90 2RF Rx Instructions: increase to 2mg daily for 3 days then reduce to 1mg daily. Take with potassium pantoprazole [Protonix] 40 mg tablet,delayed release (DR/EC) 40 mg PO BID 42 Days Qty: 84 1RF Brilinta 90 mg tablet 90 mg PO BID Qty: 180 2RF Hold Instructions: Resume on 09/20/22. amlodipine 2.5 mg tablet 2.5 mg PO DAILY Qty: 30 4RF lidocaine-prilocaine 2.5-2.5 % cream 1 applic topical ONCE Qty: 30 0RF Rx Instructions: Apply to port 30-45 minutes prior to access metoprolol tartrate 25 mg tablet 25 mg PO BID Qty: 180 3RF meloxicam 15 mg tablet 15 mg PO DAILY Hold Instructions: Resume on 09/20/22. albuterol sulfate 90 mcg/actuation HFA aerosol inhaler 2 inh INHALATION Q4H PRN (Reason: shortness of breath or wheezing) Qty: 18 0RF ondansetron 4 mg tablet,disintegrating 4 mg PO Q6H PRN (Reason: nausea and vomiting) Qty: 14 0RF Rexulti 0.5 mg Tablet 0.5 mg PO DAILY albuterol sulfate 2.5 mg /3 mL (0.083 %) solution for nebulization 2.5 mg inhalation Q4H PRN (Reason: Shortness Of Breath) aspirin 81 mg Tablet,Delayed Release (Dr/Ec) 81 mg PO QAM hydroxyzine HCl 25 mg tablet 25 - 50 mg PO QID PRN (Reason: Anxiety) fluoxetine 40 mg capsule 40 mg PO DAILY atorvastatin 40 mg tablet 40 mg PO BEDTIME isosorbide mononitrate 30 mg tablet extended release 24 hr 30 mg PO DAILY Hold Instructions: Resume on 11/03/22. hydrocodone-acetaminophen 7.5-325 mg tablet 1 tab PO Q4H PRN (Reason: Pain) ibuprofen 400 mg tablet 400 mg PO Q8H PRN (Reason: Pain) aripiprazole 30 mg tablet 30 mg PO DAILY bupropion HCl 300 mg tablet extended release 24 hr 300 mg PO DAILY lisinopril 40 mg tablet 20 mg PO DAILY Qty: 30 0RF Discharge Orders: Discharge ED (Routine); Ordered 11/15/22 Ordered By: Sergio Lovell Referrals: Ryann Burk [Primary Care Provider] - Patient Instructions: Chest Pain (ED), COPD (Chronic Obstructive Pulmonary Disease) (ED), Opioid Safety, Pain Management Activity Restrictions/Additional Instructions: Use your albuterol at home every 4 hours while awake for the next 48 hours scheduled, then as needed following that. Other medication as directed. Return for worsening pain or shortness of breath despite treatment. See your doctor this coming week. Coding Level of Care Code ED Urgent Care Physician Assistant for Ann Machuca
[2022-11-15 17:43] LABS: Basophils % 0.4 %; Eosinophils # 0.2 10^3/uL (0.0-0.8); Eosinophils % 2.4 %; Lymphocytes # 1.1 10^3/uL (0.8-4.8); Mean Corpuscular HGB Conc 34.2 g/dL (30-55); Mean Corpuscular Hemoglobin 34.9 pg (27-33); Mean Corpuscular Volume 101.9 fl (85-98); Mean Platelet Volume 9.3 fL (7.4-10.4); Monocytes # 0.6 10^3/uL (0.2-0.9); Monocytes % 8.5 %; Neutrophils # 4.79 10^3/uL (1.8-7.7); Nucleated Red Blood Cells % 0 %; Platelet Count 156 10^3/cmm (157-399); Red Blood Count 3.73 10^6/uL (3.85-5.65); Red Cell Distribution Width 15.9 % (12.1-15.1); White Blood Count 6.67 10^3/uL (3.29-11.43)
[2022-11-15] MEDS: methylPREDNISolone sod succ 125 MG in water for injection-sterile 2 ML 24 MG IVP (17:59)
[2022-11-15] MEDS: ipratropium-albuterol 3 mL Neb INHALATION (18:06)
[2022-11-15 18:09] LABS: Troponin(5th) Baseline 12 ng/L (0-10)
[2022-11-15 18:11] LABS: Alanine Aminotransferase 18 U/L (0-33); Albumin Level 3.8 g/dL (3.5-5.2); Alkaline Phosphatase 115 U/L (35-105); Anion Gap 14.5 (5-19); Aspartate Amino Transferase 13 U/L (0-32); Blood Urea Nitrogen 23 mg/dL (6-20); Carbon Dioxide 24 mmol/L (22-29); Chloride 109 mmol/L (98-107); Globulin 2.7 g/dL (1.3-4.6); Glomerular Filtration Rate 51.2 mL/min (90-130); Glucose 106 mg/dL (65-115); Osmolality Calculated 302 mOsm/kg (285-295); Potassium 3.5 mmol/L (3.5-5.1); Sodium 144 mmol/L (136-145); Total Bilirubin 0.3 mg/dL (0.15-1.2); Total Protein 6.5 g/dL (6.6-8.7)
[2022-11-15] MEDS: ondansetron 2 mg/ML SDV 2 mL 4 MG IVP (19:05)
[2022-11-15] MEDS: morphine 4 mg/mL SDV 1 mL IVP (19:05)
[2022-11-15 19:43] LABS: Troponin 5 2HR 10.82 ng/L (0-10)
[2022-11-15 19:50] LABS: Troponin 5 2HR Delta -1.18 ABS# (0-10)
== END 2022-11-15 20:32 | disposition home or self-care (01) ==
PROVIDERS: Family Medicine; Emergency Provider Emergency Medicine; PCP Family Medicine
DX: J44.1 Chronic obstructive pulmonary disease with (acute) exacerbation (principal); R07.9 Chest pain, unspecified; Z87.891 Personal history of nicotine dependence
CPT/HCPCS: 36415; 71045; 80053; 84484; 85025; 93005; 94640; 96374; 96375; 99285; J2270; J2405; J2930

== ENCOUNTER → 2022-11-20 13:35 | Outpatient (BNVA) | payer MEDICAID, SELFPAY | PROVIDERS: PCP Family Medicine; Visit Provider Nurse Practitioner Family | DX: I25.110 Atherosclerotic heart disease of native coronary artery with unstable angina pectoris (principal); I45.5 Other specified heart block; I11.0 Hypertensive heart disease with heart failure; I50.30 Unspecified diastolic (congestive) heart failure; R55 Syncope and collapse; Z87.891 Personal history of nicotine dependence | CPT/HCPCS: 36415; 99214 ==

== ENCOUNTER 2022-11-21 09:52 | Observation (INO) | payer MEDICAID, SELFPAY ==
[2022-11-21] VITALS (32 sets, daily range): BP systolic 90–137; BP diastolic 49–87; PULSE 50–73; RESP 14–22; TEMP 36.6–37.2; O2SAT 90–97; BMI 33.5
--- NOTE | 2022-11-21 09:53 | XR_ITS ---
WS: [id number] Exam: XR chest 1V portable [id number] Date/Time of Exam: 11/21/2022 10:10 AM Reason For Exam: chest pain Comparison 11/15/2022. There is mild cardiac enlargement with mild pulmonary vascular congestion. No consolidated infiltrate s. No pleural effusions. A right-sided port ends at the region of the cavoatrial junction. The medias tinum is normal in contour. Bony structures are intact. Fusion hardware in the lower C-spine. IMPRESSION: 1. Mild cardiac enlargement with mild pulmonary vascular congestion. 2. No consolidating infiltrates.
--- NOTE | 2022-11-21 10:23 | ECG_ITS ---
[facility] Test Date: 2022-11-21 Pat Name: Le Barnhart Department: Room: Gender: Female [employer] Officer: : 1965 Requested By: Summer Simmons Order Number: [id number] Lopez MD: Aaliyah Cruz M.D. Measurements Intervals [place] Rate: 55 P: 52 [place]: 159 QRS: 61 QRSD: 87 T: 14 QT: 402 QTc: 387 Interpretive Statements SINUS BRADYCARDIA NONSPECIFIC T-WAVE ABNORMALITY Compared to ECG 11/15/2022 16:37:46 T-wave abnormality now present Sinus rhythm no longer present Left ventricular hypertrophy no longer present ST (T wave) deviation no longer present Electronically Signed On 11-21-2022 13:02:00 CDT by Aaliyah Cruz M.D. [email or web address]
[2022-11-21] MEDS: nitroglycerin 1 gm/inch oint Pkt 1 INCH TOPICAL (10:41)
--- NOTE | 2022-11-21 10:42 | ED_ITS ---
HPI - Chest Pain General: Chief Complaint: Chest Pain Stated Complaint: SOB, Chest pressure Time Seen by Provider: 11/21/22 09:53 Source: patient Mode of arrival: ambulatory History of Present Illness: 57-year-old female presents emergency room with complaints of shortness of breath and chest pain. Started last night and shoots down her right arm. She states she passed out at 1 point and was not breathing and her family did [id number] for bed and then she woke up. She was seen with similar complaints on 826 at that time cardiac enzymes are negative side to be more exacerbation of COPD and she was discharged home with same. She does have fairly severe COPD. Previous angiography reviewed. MD complaint: chest pain Onset (ago): hour(s) Timing of current episode: episodic Onset: during rest Pain location: substernal Quality: tightness and aching Relieving factors: nothing Exacerbating factors: nothing Associated symptoms: Deny abdominal pain, diaphoresis, dyspnea, fever(s), leg edema, nausea, palpitations, sense of impending doom, syncope or vomiting Review of Systems Const: Denies: fever(s), chills, fatigue, malaise or diaphoresis Card: Reports: chest pain; Denies: palpitations, irregular heart rhythm, edema or syncope Resp: Denies: dyspnea GI: Denies: abdominal pain, nausea or vomiting : Denies: flank pain, difficulty voiding, dysuria, urinary frequency or urinary urgency Skin/Breast: Denies: rash or pruritus PFS ED PFSH: Medical History Atherosclerotic heart disease of [place] coronary artery with unstable angina pectoris CAD (coronary artery disease) Cirrhosis COPD (chronic obstructive pulmonary disease) Hemochromatosis Hemochromatosis Hypertension Nocturnal hypoxia NSAID long-term use Smoking addiction Status post chemoradiation Vaginal tumors Surgical History H/O vaginal surgery Hx of appendectomy Hx of colonoscopy with polypectomy 10 yrs ago Family History Denies family history of Colon cancer Ovarian cancer Diabetes Heart disease Hypercholesteremia Breast cancer Hypertension Uterine cancer Thyroid disease Stroke Social History Smoking and tobacco status: former smoker Quit status (tobacco): quit date established Planned quit date: 05/27/22 Alcohol intake: never Substance/Drug Use: never Lives independently: Yes Household members: significant other Marital status: Single Physical Exam Const: GENERAL APPEARANCE: cooperative and comfortable ORIENTATION/CO NSCIOUSNESS: Yes awake, Yes oriented to person, Yes oriented to place and Yes oriented to time HENMT: COMMON NORMALS: normocephalic, atraumatic and hearing grossly normal bilaterally HEAD & SCALP: normocephalic and atraumatic Resp: COMMON NORMALS: normal respiratory effort, No retractions, No use of accessory muscles and clear to auscultation bilaterally AUSCULTATION: clear to auscultation bilaterally Cardio: COMMON NORMALS: regular rate, regular rhythm and No murmurs present (Cardio) RATE: regular rate RHYTHM: regular rhythm GI: COMMON NORMALS: Soft to palpation and No hepatosplenomegaly present AUSCULTATION: Yes normoactive bowel sounds PALPATION: Yes Soft to palpation, No Tenderness to palpation present (GI), No Guarding due to palpation present (GI) and Yes No hepatosplenomegaly present Extremity: COMMON NORMALS: normal to inspection, capillary refill normal, no clubbing, cyanosis or edema, no calf tenderness and no pedal edema Neuro: SENSORIUM/ORIENTATION: Yes oriented to person, Yes oriented to place and Yes oriented to time Skin: COMMON NORMALS: no rashes or lesions noted GENERAL SKIN EXAM: no nathaniel hes or lesions noted Course Vital Signs: Vital signs: Vital Signs Temperature 97.8 F 11/21/22 10:27 Pulse Rate 55 L 11/21/22 13:15 Respiratory Rate 18 11/21/22 14:22 Blood Pressure 137/87 11/21/22 13:15 Pulse Oximetry 95 11/21/22 14:22 Oxygen Delivery Me thod Room Air 11/21/22 11:42 MDM - Chest Pain Medical Decision Making Seen within the last week for shortness of breath symptoms cardiac enzymes at that time were negative patient seem to have more COPD symptoms. She responded well to steroids and nebulizers but returns with chest pain today. No acute EKG changes or troponin changes however patient does have relief of her symptoms with nitro. She has angiogram earlier this year but now she is getting chest pain relieved by nitro while at rest. We will admit the patient for remainder of the rule out for Medical Records I reviewed the patient's medical records. Lab Data I reviewed the patient's lab results. 11/21/22 10:30 11/21/22 10:30 Laboratory Results WBC 6.86 10^3/uL (3.29-11.43) 11/21/22 10:30 RBC 4.11 10^6/uL (3.85-5.65) 11/21/22 10:30 Hgb 14.10 g/dL (11.27-16.99) 11/21/22 10:30 Hct 41.1 % (36-47) 11/21/22 10:30 MCV 100.0 fl (85-98) H 11/21/22 10:30 MCH 34.3 pg (27-33) H 11/21/22 10:30 MCHC 34.3 g/dL (30-55) 11/21/22 10:30 RDW 15.5 % (12.1-15.1) H 11/21/22 10:30 Plt Count 183 10^3/cmm (157-399) 11/21/22 10:30 MPV 9.3 fL (7.4-10.4) 11/21/22 10:30 Neut % (Auto) 71.9 % 11/21/22 10:30 Lymph % (Auto) 16.2 % 11/21/22 10:30 [place] % (Auto) 7.9 % 11/21/22 10:30 Eos % (Auto) 1.9 % 11/21/22 10:30 Baso % (Auto) 0.4 % 11/21/22 10:30 Neut # (Auto) 4.93 10^3/uL (1.8-7.7) 11/21/22 10:30 Lymph # (Auto) 1.1 10^3/uL (0.8-4.8) 11/21/22 10:30 [place] # (Auto) 0.5 10^3/uL (0.2-0.9) 11/21/22 10:30 Eos # (Auto) 0.1 10^3/uL (0.0-0.8) 11/21/22 10:30 Baso # (Auto) 0.0 10^3/uL (0.0-0.1) 11/21/22 10:30 Nucleated RBC % (auto) 0 % 11/21/22 10:30 Nucleated RBCs # 0.0 /100WBC 11/21/22 10:30 Sodium 137 mmol/L (136-145) 11/21/22 10:30 Potassium 3.9 mmol/L (3.5-5.1) 11/21/22 10:30 Chloride 101 mmol/L (98-107) 11/21/22 10:30 Carbon Dioxide 27 mmol/L (22-29) 11/21/22 10:30 Anion Gap 12.9 (5-19) 11/21/22 10:30 BUN 16 mg/dL (6-20) 11/21/22 10:30 Creatinine 0.7 mg/dL (0.5-0.9) 11/21/22 10:30 GFR Calculation 86.2 mL/min (90-130) L 11/21/22 10:30 Glucose 93 mg/dL (65-115) 11/21/22 10:30 Calculated Osmolality 285 mOsm/kg (285-295) 11/21/22 10:30 Calcium 9.3 mg/dL (8.5-10.5) 11/21/22 10:30 Total Bilirubin 0.5 mg/dL (0.15-1.2) 11/21/22 10:30 AST 16 U/L (0-32) 11/21/22 10:30 ALT 23 U/L (0-33) 11/21/22 10:30 Alkaline Phosphatase 104 U/L (35-105) 11/21/22 10:30 Troponin T Baseline 14 ng/L (0-10) H 11/21/22 10:30 Troponin T 120 Minute 9.98 ng/L (0-10) 11/21/22 12:34 Delta Troponin T -4.02 ABS# (0-10) L 11/21/22 12:34 Total Protein 6.8 g/dL (6.6-8.7) 11/21/22 10:30 Albumin 3.8 g/dL (3.5-5.2) 11/21/22 10:30 Globulin 3.0 g/dL (1.3-4.6) 11/21/22 10:30 Discharge Plan Discharge Patient Disposition: Admitted As Inpatient Admit Provider: Tanvir Avery Clinical Impression: Unstable angina, COPD (chronic obstructive pulmonary disease), Atherosclerotic heart disease of [place] coronary artery with unstable angina pectoris Condition: Stable Coding Level of Care Code ED 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
[2022-11-21 10:48] LABS: Basophils % 0.4 %; Eosinophils # 0.1 10^3/uL (0.0-0.8); Eosinophils % 1.9 %; Hematocrit 41.1 % (36-47); Lymphocytes # 1.1 10^3/uL (0.8-4.8); Lymphocytes % 16.2 %; Mean Corpuscular HGB Conc 34.3 g/dL (30-55); Mean Corpuscular Hemoglobin 34.3 pg (27-33); Mean Platelet Volume 9.3 fL (7.4-10.4); Monocytes # 0.5 10^3/uL (0.2-0.9); Monocytes % 7.9 %; Neutrophils # 4.93 10^3/uL (1.8-7.7); Neutrophils % 71.9 %; Nucleated Red Blood Cells % 0 %; Platelet Count 183 10^3/cmm (157-399); Red Blood Count 4.11 10^6/uL (3.85-5.65); Red Cell Distribution Width 15.5 % (12.1-15.1); White Blood Count 6.86 10^3/uL (3.29-11.43)
[2022-11-21 11:09] LABS: Alanine Aminotransferase 23 U/L (0-33); Albumin Level 3.8 g/dL (3.5-5.2); Alkaline Phosphatase 104 U/L (35-105); Anion Gap 12.9 (5-19); Aspartate Amino Transferase 16 U/L (0-32); Blood Urea Nitrogen 16 mg/dL (6-20); Calcium 9.3 mg/dL (8.5-10.5); Carbon Dioxide 27 mmol/L (22-29); Chloride 101 mmol/L (98-107); Glomerular Filtration Rate 86.2 mL/min (90-130); Glucose 93 mg/dL (65-115); Osmolality Calculated 285 mOsm/kg (285-295); Potassium 3.9 mmol/L (3.5-5.1); Sodium 137 mmol/L (136-145); Total Bilirubin 0.5 mg/dL (0.15-1.2); Total Protein 6.8 g/dL (6.6-8.7)
[2022-11-21 11:10] LABS: Troponin(5th) Baseline 14 ng/L (0-10)
--- NOTE | 2022-11-21 11:53 | ECG_ITS ---
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 Measurements Intervals [place] Rate: 55 P: 88 TN: 169 QRS: 66 QRSD: 85 T: -7 QT: 424 QTc: 408 Interpretive Statements SINUS BRADYCARDIA NONSPECIFIC ST & T-WAVE ABNORMALITY Compared to ECG 11/21/2022 10:23:06 No significant changes Electronically Signed On 11-21-2022 13:31:51 CDT by Aaliyah Cruz M.D. [id number]
[2022-11-21 13:44] LABS: Troponin 5 2HR 9.98 ng/L (0-10); Troponin 5 2HR Delta -4.02 ABS# (0-10)
[2022-11-21] MEDS: morphine 4 mg/mL SDV 1 mL 2 MG IVP ×2 (14:22→20:21)
--- NOTE | 2022-11-21 15:28 | USCV_ITS ---
Le Barnhart Age: 57 Gender: F : 1965 Exam Date: 11/21/2022 16:17 Ordering Phys: Tanvir Avery MD Technologist: Nate Glass [place] [facility] [place]: card arrest BP: 108 / 53 HR: 79 Rhythm: Sinus Technical Quality: Adequate MEASUREMENTS (Male / Female) Normal Values 2D ECHO LV Diastolic Diameter PLAX 4.4 cm 4.2 - 5.9 / 3.9 - 5.3 cm LV Systolic Diameter PLAX 2.7 cm IVS Diastolic Thickness 1.2 cm 0.6 - 1.0 / 0.6 - 0.9 cm IVS Systolic Thickness 2.1 cm LVPW Diastolic Thickness 1.2 cm 0.6 - 1.0 / 0.6 - 0.9 cm LVPW Systolic Thickness 1.7 cm LVOT Diameter 2.1 cm LV Ejection Fraction 2D Teich 68.6 % LV Ejection Fraction MOD 2C 63.2 % LV Ejection Fraction 2C AL 62.7 % LA Diameter 4.0 cm IVC Diameter 1.7 cm M-MODE Aortic Annulus Diameter 3.6 cm LA Ao Ratio MM 1.1 MV E Point Septal Separation 1.2 cm DOPPLER AV Peak Velocity 175.0 cm/s LVOT Peak Velocity 128.0 cm/s AV Area Cont Eq vti 2.8 cm squared AV Area Cont Eq pk 2.5 cm squared MV Area PHT 2.7 cm squared Mitral E to A Ratio 0.8 MV E' Velocity 32.0 cm/s Mitral E to MV E' Ratio 8.3 Mitral E to LV E' Lateral Ratio 6.3 Mitral E to LV E' Septal Ratio 12.2 TR Peak Velocity 149.3 cm/s TR Peak Gradient 8.9 mmHg TV Peak E Velocity 80.0 cm/s Right Atrial Pressure 3.0 mmHg Pulmonary Artery Systolic Pressu 11.9 mmHg RV Acceleration Time 0.1 s FINDINGS Left Ventricle Ventricle is normal in size. LV systolic function is normal with EF of 60 to 65%. No regional wall motion abnormalities are seen. Grade 1 diastolic dysfunction Right Ventricle Normal in size and function Right Atrium Normal in size Left Atrium Normal in size Mitral Valve Structurally normal mitral valve. Mild mitral regurgitation Aortic Valve Grossly normal. No significant stenosis or regurgitation seen. Tricuspid Valve Mild tricuspid regurgitation. Insufficient TR jet to calculate RVSP. Pulmonic Valve Not well-visualized Pericardium Normal Aorta Normal in size IVC Not well-visualized CONCLUSIONS LV systolic function is normal with EF of 60 to 65%. Grade 1 diastolic dysfunction Mild mitral regurgitation Mild tricuspid regurgitation Compared to prior echocardiogram from 10/2022, no significant changes are seen David Escalante MD (Electronically Signed) Final Date: 21 November 2022 17:10 S
--- NOTE | 2022-11-21 15:42 | USR_ITS ---
PROCEDURE INFORMATION: Exam: US Duplex Lower Extremity Veins, Bilateral Exam date and time: 11/21/2022 4:29 PM Age: 57 years old Clinical indication: Pain; Leg, lower; Bilateral; Additional info: Dvt TECHNIQUE: Imaging protocol: Real-time duplex ultrasound of the bilateral extremities with 2-D mariscal scale, color Doppler flow and spectral waveform analysis including responses to compression and other maneuvers (when performed) with image documentation. Complete exam focused on the lower extremity veins. COMPARISON: CT abdomen pelvis con [id number] 07/17/2022 7:33 PM FINDINGS: Right deep veins: Unremarkable. The common femoral, femoral, proximal profunda femoral and popliteal veins as well as the visualized deep veins of lower leg are patent without thrombus. Normal Doppler waveforms. Normal compressibility and/or augmentation response. Left deep veins: Unremarkable. The common femoral, femoral, proximal profunda femoral and popliteal veins as well as the visualized deep veins of the lower leg are patent without thrombus. Normal Doppler waveforms. Normal compressibility and/or augmentation response. Superficial veins: Bilateral saphenofemoral junctions are patent without thrombus. Soft tissues: Unremarkable. US/[place] [id number] IMPRESSION: No evidence of deep vein thrombosis.
--- NOTE | 2022-11-21 15:53 | ECG_ITS ---
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 Measurements Intervals [place] Rate: 58 P: 48 CA: 171 QRS: 61 QRSD: 87 T: 5 QT: 391 QTc: 387 Interpretive Statements SINUS BRADYCARDIA NONSPECIFIC T-WAVE ABNORMALITY Compared to ECG 11/21/2022 13:11:52 No significant changes Electronically Signed On 11-21-2022 20:56:21 CDT by Aaliyah Cruz M.D. [id number]
--- NOTE | 2022-11-21 15:59 | P.HP_ITS ---
Providers/Chief Complaint Admitting Physician: Tanvir Avery MD Primary Care Provider: Ryann Burk Chief Complaint: SOB, Chest pressure History of Present Illness Le Barnhart is a 57 year old female with a past medical history of hemochromatosis, history of COPD, quit smoking 2 months ago, reported history of vaginal cancer status postchemotherapy, history of breast cancer status postmastectomy, history of recurrent syncopal episodes, with event monitor, history of bradycardia, history of type 2 diabetes mellitus, hypertension, CAD, with multiple PCI's in the past, with 60% narrowing of the ostium of the left circumflex, relatively small RV branch, small caliber of the right coronary artery was found to have high-grade stenosis approximately, left ventricular EDP of 25, FFR 0.91 who presents to [facility] due to shortness of breath, chest pain, and episode of nonresponsiveness. Patient tells me that for the last week she has been experiencing increasing short of breath short of breath at rest and with exertion, having mild lower extremity edema, no cough, no fevers, no sick contacts, she quit smoking 2 months ago, she tells me that she is also been having intermittent chest pain, substernal, radiating up to her neck, radiating to her back, intermittent associate with shortness of breath, she tells me that at 2 AM this morning, she woke up and she was feeling short of breath, so she sat up in bed, continued to feel short of breath and then she blacked out, she tells me according to patient her gave her [id number] resuscitation for a few seconds, he also shook her to try to wake her up, were not sure if she lost her pulse, but she was immediately awake and alert, following commands, but continued to have shortness of breath, and episodes of chest pain, she refused initially to come to the emergency room after this episode but due to persistent chest pain she came to the emergency room for further evaluation, currently she is chest pain-free, does complain of shortness of breath, she does not use oxygen at home, but at 1 point she did use oxygen during the night, baseline troponin is 14, initial EKG no acute ST-T wave changes, chest x-ray Review of Systems Const: Denies: fever(s) or chills Eyes: Denies: change in vision ENMT: Denies: throat pain Card: Denies: chest pain or palpitations Resp: Denies: dyspnea or productive cough GI: Denies: abdominal pain, nausea or vomiting : Denies: flank pain Musc: Denies: neck pain or back pain Skin/Breast: Denies: rash Neuro: Denies: headache(s), numbness in extremities, weakness in extremities, dizziness, vertigo or confusion Endo: Denies: polyuria Medications/Allergies Home Medications Medication Instructions Recorded Confirmed Last Taken Type albuterol sulfate 2.5 mg/3 mL 2.5 mg inhalation Q4H PRN 06/10/22 11/21/22 09/16/22 History (0.083 %) solution for nebulization Shortness Of Breath aspirin 81 mg tablet,delayed 81 mg PO QAM 06/10/22 11/21/22 11/21/22 History release hydroxyzine HCl 25 mg tablet 25 - 50 mg PO QID PRN Anxiety 06/10/22 11/21/22 11/21/22 History albuterol sulfate 90 mcg/actuation 2 inh inhalation Q4H PRN shortness 06/14/22 11/21/22 09/16/22 Rx aerosol inhaler of breath or wheezing #18 grams meloxicam 15 mg tablet 15 mg PO DAILY 06/14/22 11/21/22 11/21/22 History bumetanide 1 mg tablet 1 mg PO QAM #90 tabs 06/25/22 11/21/22 11/21/22 Rx nitroglycerin 0.4 mg sublingual 0.4 mg sublingual Q5M PRN chest 06/25/22 11/21/22 Unknown Rx tablet pain #30 tabs ondansetron 4 mg disintegrating 4 mg PO Q6H PRN nausea and 07/17/22 11/21/22 Unknown Rx tablet vomiting #14 tabs pantoprazole 40 mg tablet,delayed 40 mg PO BID 6 weeks #84 tabs 07/22/22 11/21/22 11/21/22 Rx release (Protonix) ticagrelor 90 mg tablet (Brilinta) 90 mg PO BID #180 tabs 08/05/22 11/21/22 11/21/22 Rx aripiprazole 30 mg tablet 30 mg PO DAILY 10/24/22 11/21/22 11/21/22 History atorvastatin 40 mg tablet 40 mg PO BEDTIME 10/24/22 11/21/22 11/20/22 History bupropion HCl 300 mg 24 hr tablet, 300 mg PO DAILY 10/24/22 11/21/22 11/21/22 History extended release fluoxetine 40 mg capsule 40 mg PO DAILY 10/24/22 11/21/22 11/21/22 History ibuprofen 400 mg tablet 400 mg PO Q8H PRN Pain 10/24/22 11/21/22 Unknown History isosorbide mononitrate 30 mg 30 mg PO DAILY 10/24/22 11/21/22 11/21/22 History tablet,extended release 24 hr lisinopril 40 mg tablet 20 mg PO DAILY #30 tabs 10/27/22 11/21/22 11/21/22 Rx amlodipine 2.5 mg tablet 2.5 mg PO DAILY #30 tabs 11/03/22 11/21/22 11/21/22 Rx metoprolol tartrate 25 mg tablet 25 mg PO BID #180 tabs 11/11/22 11/21/22 11/21/22 Rx methylprednisolone 4 mg tablets in See Rx Instructions PO .COMPLEX 11/15/22 11/21/22 11/21/22 Rx a dose pack ([employer]in[employer]pw (Alessandro)) #21 ea metformin 500 mg tablet,extended 500 mg PO DAILY 11/20/22 11/21/22 11/21/22 History release 24 hr sitagliptin phosphate 50 mg tablet 50 mg PO DAILY 11/20/22 11/21/22 11/21/22 History (Carmen) brexpiprazole 3 mg tablet (Rexulti) 3 mg PO DAILY 11/21/22 11/21/22 11/21/22 History carvedilol 25 mg tablet 25 mg PO BID 11/21/22 11/21/22 11/21/22 History clopidogrel 75 mg tablet 75 mg PO DAILY 11/21/22 11/21/22 11/21/22 History hydralazine 25 mg tablet 25 mg PO BID 11/21/22 11/21/22 11/21/22 History hydrochlorothiazide 50 mg tablet 50 mg PO QAM 11/21/22 11/21/22 11/21/22 History hydrocodone 5 mg-acetaminophen 325 1 tab PO Q6H PRN Pain 11/21/22 11/21/22 Unknown History mg tablet lidocaine-prilocaine 2.5 %-2.5 % See Rx Instructions .Route .COMPLEX 11/21/22 11/21/22 11/21/22 History topical cream paroxetine mesylate(menop.sym) 7.5 7.5 mg PO BEDTIME 11/21/22 11/21/22 11/20/22 History mg capsule prazosin 1 mg capsule 4 mg PO BEDTIME 11/21/22 11/21/22 11/20/22 History umeclidinium 62.5 mcg-vilanterol 1 inh inhalation DAILY 11/21/22 11/21/22 11/21/22 History 25 mcg/actuation powdr for inhalation (Anoro Ellipta) Allergies Allergy/AdvReac Type Severity Reaction Status Date / Time ketorolac [From Toradol] Allergy ALGY-Hives Verified 11/21/22 10:30 prochlorperazine Allergy Unknown Verified 11/21/22 10:30 [From Compazine] PFSH Acute PFSH: Medical History (Updated 11/21/22 @ 16:30 by Tanvir Avery MD) Atherosclerotic heart disease of [place] coronary artery with unstable angina pectoris CAD (coronary artery disease) Cirrhosis COPD (chronic obstructive pulmonary disease) Hemochromatosis Hemochromatosis Hypertension Nocturnal hypoxia NSAID long-term use Smoking addiction Status post chemoradiation Vaginal tumors Surgical History H/O vaginal surgery Hx of appendectomy Hx of colonoscopy with polypectomy 10 yrs ago Family History Denies family history of Colon cancer Ovarian cancer Diabetes Heart disease Hypercholesteremia Breast cancer Hypertension Uterine cancer Thyroid disease Stroke Social History Smoking and tobacco status: former smoker Quit status (tobacco): quit date established Planned quit date: 05/27/22 Alcohol intake: never Substance/Drug Use: never Lives independently: Yes Household members: significant other Marital status: Single Vitals/I&O/Wt Last Vital Signs Temp 98.5 F 11/21/22 15:55 Pulse 59 L 11/21/22 15:55 Resp 17 11/21/22 15:10 BP 103/57 11/21/22 15:55 Pulse Ox 94 11/21/22 15:55 O2 Del Method Room Air 11/21/22 11:42 Weight last 48 hrs Weight 88.451 kg Physical Exam Const: COMMON NORMALS: no acute distress and patient oriented x3 GENERAL APPEARANCE: cooperative, well kempt and well developed HENMT: COMMON NORMALS: normocephalic and Normal external nose present HEAD & SCALP: normocephalic FACE & SINUS: normal facial exam NOSE: Normal external nose present Eye: COMMON NORMALS: Equal, round and reactive pupils present, EOMs intact bilaterally, conjunctivae normal and no scleral icterus CONJUNCTIVA: Yes conjunctivae normal PUPIL: Yes Equal, round and reactive pupils present Neck/C-Spine: COMMON NORMALS: full ROM, no lymphadenopathy, no JVD and No carotid bruits THYROID: Thyroid normal Lymph: LYMPHATIC: no lymphadenopathy noted Chest: COMMONS NORMALS: normal inspection of the chest Resp: COMMON NORMALS: normal respiratory effort, No retractions, No use of accessory muscles and clear to auscultation bilaterally AUSCULTATION: clear to auscultation bilaterally Cardio: COMMON NORMALS: regular rate, regular rhythm, S1 normal heart sound present, S2 normal heart sound present, No murmurs present (Cardio) and Peripheral pulses 2+ throughout RATE: regular rate RHYTHM: regular rhythm HEART SOUNDS: S1 normal heart sound present and S2 normal heart sound present PERIPHERAL PULSES: Peripheral pulses 2+ throughout GI: COMMON NORMALS: Normal to inspection, nondistended, normoactive bowel sounds present, Soft to palpation and non-tender : BLADDER/KIDNEY EXAM: Yes no CVA tenderness Back/Pelvis: COMMON NORMALS: no CVA tenderness Extremity: COMMON NORMALS: normal to inspection, no calf tenderness and no pedal edema Neuro: COMMON NORMALS: patient oriented x3, CN's II-XII intact bilaterally, moves all extremities, no focal motor deficits and no sensory deficits noted MENINGEAL SIGNS: Yes no meningeal signs Psych: COMMON NORMALS: mental status grossly normal, Normal thought process pr esent, cooperative and speech normal APPEARANCE: Yes well kempt SPEECH: Yes normal speech THOUGHT PROCESS: Normal thought process present Skin: COMMON NORMALS: turgor normal and no jaundice GENERAL SKIN EXAM: turgor normal Data 11/21/22 10:30 11/21/22 10:30 A&P Assessment and plan (1) Sinus pause: (2) Atherosclerotic heart disease of [place] coronary artery with unstable angina pectoris: (3) Syncope: (4) Bradycardia: (5) Port-A-Cath in place: (6) Diastolic CHF: (7) Dyslipidemia: (8) Cirrhosis: (9) CAD (coronary artery disease): (10) COPD (chronic obstructive pulmonary disease): (11) Hemochromatosis: (12) Shortness of breath: (13) Chest pain: (14) Unresponsive episode: Plan Chest pain Coronary angiogram 06/09/2022 ?2. Patent stented segments of the proximal LAD, proximal, mid and distal RCA.? 60% narrowing at the ostium of the circumflex artery.? Minimal intimal irregularities in the other vessels.? Relatively small caliber RV branch of the right coronary artery was found to have a high-grade stenosis proximally. LVEDP of 25 mmHg. ? 3. Based on the angiogram findings, it does not be appropriate to consider IFR of the ostial circumflex lesion.? I discussed and reviewed the angiogram findings with Dr. Escalante.? Dr. Escalante concurred with this plan and took over further management of this patient at this point. . ? 4. Nonischemic FFR value 0.91 was obtained. -Currently chest pain-free Plan -Serial EKGs, serial troponins, telemetry monitoring -Continue aspirin, Brilinta -Cardiac echo -Telemetry monitoring Shortness of breath, diastolic CHF exacerbation -Possibly secondary to fluid overload, diastolic CHF -BNP -We will order Pro-Gagan, CRP, ABG, D-dimer Unresponsive episode -Etiology unclear -History of sinus pause, sinus bradycardia -Cardiac echo, venous ultrasound -Troponins, serial EKG, serial troponins, D-dimer -Pro-Gagan, CRP, ESR -Orthostatic vitals Hereditary hemochromatosis History of COPD History of CAD History of vaginal cancer History of bradycardia, history of Sinus pause -Hold beta-jasmin -Recent telemetry monitoring shows sinus pauses longest 3 seconds with bradycardia Type 2 diabetes mellitus, low-dose sliding scale Attestations Medical Necessity Statement*: Patient requires hospitalization, outpatient with observation, for unresponsive episode, chest pain, shortness of breath Diagnoses Sinus pause I45.5 Atherosclerotic heart disease of [place] coronary artery with unstable angina pectoris I25.110 Syncope R55 Bradycardia R00.1 Port-A-Cath in place Z95.828 Diastolic CHF I50.30 Dyslipidemia E78.5 Cirrhosis K74.60 CAD (coronary artery disease) I25.10 COPD (chronic obstructive pulmonary disease) J44.9 Hemochromatosis E83.119 Shortness of breath R06.02 Chest pain R07.9 Unresponsive episode R40.4
[2022-11-21 16:00] LABS: D Dimer 0.45 ug/mLFEU (0-0.59)
[2022-11-21 16:12] LABS: Glucose Point of Care 141 mg/dL (70-110)
[2022-11-21 16:13] LABS: Gamma Glutamyl Transferase 24 U/L (5-36)
[2022-11-21] MEDS: HYDROcodone-acetaminophen 7.5-325 mg Tablet 1 TAB PO ×2 (16:13→21:55)
[2022-11-21] MEDS: pantoprazole 40 mg SDV IVP (16:13)
[2022-11-21] MEDS: enoxaparin 40 mg/0.4 mL Syringe SUBCUT (16:14)
[2022-11-21 16:21] LABS: Estmated Average Glucose 111; Hemoglobin A1C 5.5 % (4.0-6.0)
[2022-11-21 16:30] LABS: Chol HDL Ratio 2.81 mg/dL (0.0-4.40); Cholesterol 132 mg/dL (0-200); HDL Cholesterol 47 mg/dL (60-100); LDL Cholesterol Calculated 55 mg/dL (50-129); LDL HDL Ratio 1.17 RATIO (0.00-3.22); Triglycerides 149 mg/dL (0-150)
[2022-11-21 16:42] LABS: Ferritin 163 ng/mL (15-150); Iron 103 ug/dL (37-145); Lipase 9 U/L (13-60); Magnesium 1.9 mg/dL (1.7-2.3); NT Pro B Type Natriuretic Pept 235 pg/mL (0-125); Thyroid Stimulating Hormone 1.71 uIU/mL (0.27-4.20)
[2022-11-21 16:53] LABS: ABG PCO2 39.6 mmHg (35-45); ABG PH Result 7.45 (7.35-7.45); Arterial Blood Gas Hematocrit 41.5 % (37-47); Base Excess ABG 3.3 mmol/L (-2.0-2.0); Blood Gas Allen Test Pos; Blood Gas Sample Type Arterial; HCO3 ABG 27.5 mmol/L (22-26); PO2 ABG 97.1 mmHg (80.0-100.0)
[2022-11-21 16:54] LABS: Blood Gas Operator Identificat MONRO; Blood Gas Sample Site Radial, left; Oxygen Device NC
[2022-11-21 17:04] LABS: Cortisol Random 11.69 ug/dL (2.47-19.5)
[2022-11-21] MEDS: insulin lispro 100 unit/1 mL SUBCUT (17:16)
[2022-11-21] MEDS: ticagrelor 90 mg Tablet PO (17:16)
[2022-11-21] MEDS: bumetanide 0.25 mg/mL SDV 4 mL 1 MG IVP (17:16)
[2022-11-21 17:32] LABS: Troponin 5 6HR 12.85 ng/L (0-10)
[2022-11-21 17:37] LABS: Lactic Sepsis W/Reflex 1.4 mmol/L (0.5-2.2)
[2022-11-21 17:38] LABS: Troponin 5 6HR Delta -1.15 ng/L (0-12)
--- NOTE | 2022-11-21 18:41 | PC.NURSE ---
Patient reported chest pain at 1830. I spoke with Dr. Avery about this and asked patient if she wanted some nitro and she said didn't think it would help. Dr. Avery advised to give hydrocodone, but she was given some at [address] Avery instructed to watch for now
[2022-11-21 18:56] LABS: Add Urine Microscopic? YES; Bilirubin Urine Neg (Negative); Blood Urine Neg (Negative); Glucose Urine UA Norm (Normal); Ketones Urine Negative (Negative); Leukocyte Esterase Urine 1+ (Negative); Nitrate Urine Negative (Negative); Protein Urine Neg (Negative); Specific Gravity, Urine 1.015 (1.005-1.030); Urine Appearance Hazy (CLEAR); Urine Color Yellow (Yellow); Urobilinogen Urine Norm (Negative); pH Urine 5 (5-7)
[2022-11-21 18:57] LABS: Bacteria Urine 2+ /hpf; Mucus Urine 1+ /hpf; RBC Urine 0-4 /hpf (0-2); Squamous Epithelial Cell Urine 0-4 /hpf (0-5); WBC Urine 40-55 /hpf (0-5)
[2022-11-21 18:58] LABS: Add Urine Culture? Yes; Hyaline Casts Urine 0-4 /lpf
[2022-11-21] MEDS: atorvastatin 40 mg Tablet PO (20:25)
[2022-11-21 20:55] LABS: Glucose Point of Care 97 mg/dL (70-110)
[2022-11-22] VITALS (18 sets, daily range): BP systolic 95–119; BP diastolic 50–75; PULSE 57–78; RESP 12–19; TEMP 36.7–37.2; O2SAT 92–97
[2022-11-22] MEDS: morphine 4 mg/mL SDV 1 mL 2 MG IVP ×2 (00:26→06:20)
[2022-11-22 04:32] LABS: Basophils % 0.6 %; Eosinophils # 0.1 10^3/uL (0.0-0.8); Eosinophils % 1.7 %; Hematocrit 38.9 % (36-47); Lymphocytes # 1.2 10^3/uL (0.8-4.8); Lymphocytes % 19.1 %; Mean Corpuscular HGB Conc 33.2 g/dL (30-55); Mean Corpuscular Hemoglobin 34.6 pg (27-33); Mean Corpuscular Volume 104.3 fl (85-98); Monocytes # 0.6 10^3/uL (0.2-0.9); Neutrophils # 4.38 10^3/uL (1.8-7.7); Neutrophils % 68.2 %; Nucleated Red Blood Cells % 0 %; Platelet Count 157 10^3/cmm (157-399); Red Blood Count 3.73 10^6/uL (3.85-5.65); Red Cell Distribution Width 15.9 % (12.1-15.1); White Blood Count 6.43 10^3/uL (3.29-11.43)
[2022-11-22] MEDS: aspirin 81 mg EC Tablet PO (04:42)
[2022-11-22] MEDS: HYDROcodone-acetaminophen 7.5-325 mg Tablet 1 TAB PO ×4 (04:42→23:19)
[2022-11-22 04:58] LABS: Alanine Aminotransferase 20 U/L (0-33); Albumin Level 3.7 g/dL (3.5-5.2); Alkaline Phosphatase 93 U/L (35-105); Anion Gap 12.5 (5-19); Aspartate Amino Transferase 11 U/L (0-32); Blood Urea Nitrogen 27 mg/dL (6-20); Calcium 9.4 mg/dL (8.5-10.5); Carbon Dioxide 27 mmol/L (22-29); Chloride 103 mmol/L (98-107); Globulin 2.7 g/dL (1.3-4.6); Glomerular Filtration Rate 57.1 mL/min (90-130); Glucose 127 mg/dL (65-115); Magnesium 1.8 mg/dL (1.7-2.3); Osmolality Calculated 295 mOsm/kg (285-295); Phosphorus 4.7 mg/dL (2.5-4.5); Potassium 3.5 mmol/L (3.5-5.1); Sodium 139 mmol/L (136-145); Total Bilirubin 0.3 mg/dL (0.15-1.2); Total Protein 6.4 g/dL (6.6-8.7)
[2022-11-22 05:06] LABS: NT Pro B Type Natriuretic Pept 110 pg/mL (0-125)
[2022-11-22 06:44] LABS: Glucose Point of Care 93 mg/dL (70-110)
[2022-11-22] MEDS: amlodipine 5 mg Tablet 2.5 MG PO (08:39)
[2022-11-22] MEDS: isosorbide mononitrate ER 30 mg Tablet PO (08:40)
[2022-11-22] MEDS: fluoxetine 20 mg Capsule 40 MG PO (08:40)
[2022-11-22] MEDS: ticagrelor 90 mg Tablet PO ×2 (08:41→18:37)
[2022-11-22] MEDS: lisinopril 20 mg Tablet PO (08:41)
[2022-11-22] MEDS: buPROPion XL (24 HR) 300 mg Tablet PO (08:42)
[2022-11-22] MEDS: bumetanide 0.25 mg/mL SDV 4 mL 1 MG IVP (08:42)
--- NOTE | 2022-11-22 08:49 | PC.NURSE ---
Pt has friend at bedside and had already eaten breakfast. Pt called twice requesting her po pain med [place] earllier than ordered and then pt requested 2 Ham sandwiches and chocolate milk and gave half of it to her visitor that was sitting in a wheelchair next to her bed. While giving the pt her medications, the pt wanted to know the time that she could have her morphine again.
[2022-11-22 10:11] LABS: Amphetamines Screen Urine Negative (Negative); Barbiturates Screen Urine Negative (Negative); Benzodiazepines Screen Urine Negative (Negative); Cocaine Screen Urine Negative (Negative); Opiate Screen Urine Positive (Negative); PCP Screen Urine Negative (Negative); THC Screen Urine Negative (Negative)
[2022-11-22] MEDS: ARIPiprazole 30 mg Tablet PO (10:11)
--- NOTE | 2022-11-22 10:14 | CTR_ITS ---
PROCEDURE INFORMATION: Exam: CTA Chest With Contrast Exam date and time: 11/22/2022 1:18 PM Age: 57 years old Clinical indication: Shortness of breath; Additional info: SOB TECHNIQUE: Imaging protocol: Computed tomographic angiography of the chest with contrast. Exam focused on the arteries. 3D rendering (Not supervised by radiologist): MIP and/or 3D reconstructed images were created by the technologist. Radiation optimization: All CT scans at this facility use at least one of these dose optimization techniques: automated exposure control; mA and/or kV adjustment per patient size (includes targeted exams where dose is matched to clinical indication); or iterative reconstruction. Contrast material: OMNI 350; Contrast volume: 100 ml; Contrast route: INTRAVENOUS (IV); REPORTING DATA: Count of CT and Cardiac NM exams in prior 12 months: This patient has received 6 known CTs and 0 known cardiac nuclear medicine studies in the 12 months prior to the current study. COMPARISON: 1. CT angio chest PE protcl [id number] 10/24/2022 11:37 AM 2. CTA chest 06/17/2022 RADIATION DOSE METRICS: Total DLP (mGy-cm): 440.16 FINDINGS: Tubes, catheters and devices: Right-sided chest port catheter terminates in the SVC. Pulmonary arteries: Image quality is suboptimal for evaluation of the pulmonary arteries, primarily secondary to motion/breathing artifact. No large central pulmonary thromboembolism. Filling defects in multiple right lower lobe subsegmental branches (axial series 7, image 212) may represent small nonocclusive peripheral thromboembolisms. Aorta: Unremarkable. No aortic aneurysm. No aortic dissection. Thyroid: Thyroid is normal. Lungs: Mild dependent atelectasis. No focal consolidation. Pleural spaces: Unremarkable. No pneumothorax. No pleural effusion. Heart: Mild cardiomegaly. No pericardial effusion. Coronary arteries: Multiple coronary artery stents noted. Lymph nodes: Multiple prominent sub threshold mediastinal lymph nodes are unchanged from 06/17/2022. No suspicious lymphadenopathy. Bones/joints: No acute osseous findings. No suspicious lytic or blastic osseous lesions. Soft tissues: Status post right mastectomy. CT/CT angio chest PE protcl [id number] IMPRESSION: No central pulmonary thromboembolism. Filling defects in multiple right lower lobe subsegmental branches may represent small peripheral thromboembolisms.
[2022-11-22 11:15] LABS: Glucose Point of Care 113 mg/dL (70-110)
[2022-11-22] MEDS: iohexol 350 mg/mL 500 mL Btl (per mL) IV (13:25)
--- NOTE | 2022-11-22 15:33 | PM.PN ---
Subjective Subjective: patient was seen this morning, patient reports shortness of breath, no fever, no cough, no chest pain, no nausea, no vomiting, still reports shortness of breath with exertion, Vitals/I&O/Wt Last Vital Signs Temp 98.4 F 11/22/22 08:00 Pulse 69 11/22/22 11:37 Resp 19 H 11/22/22 11:37 BP 106/58 11/22/22 11:37 Pulse Ox 97 11/22/22 11:37 O2 Del Method Nasal Cannula 11/22/22 11:37 O2 Flow Rate 2 11/22/22 04:40 11/22/22 11/22/22 11/22/22 06:59 14:59 22:59 Intake Total 640 / 1822 1480 / 1480 Output Total 100 / 100 Balance 640 / 972 1380 / 1380 Weight last 48 hrs Weight 88.451 kg Physical Exam Const: COMMON NORMALS: no acute distress and patient oriented x3 Resp: COMMON NORMALS: normal respiratory effort, No retractions, No use of accessory muscles and clear to auscultation bilaterally AUSCULTATION: clear to auscultation bilaterally Cardio: COMMON NORMALS: regular rate, regular rhythm, S1 normal heart sound present and S2 normal heart sound present RATE: regular rate RHYTHM: regular rhythm HEART SOUNDS: S1 normal heart sound present and S2 normal heart sound present GI: COMMON NORMALS: Normal to inspection, nondistended, normoactive bowel sounds present and non-tender Extremity: COMMON NORMALS: no pedal edema Neuro: COMMON NORMALS: patient oriented x3 Psych: COMMON NORMALS: mental status grossly normal Data 11/22/22 03:40 11/22/22 03:40 A&P Assessment and plan (1) Sinus pause: (2) 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 Patent stented segments of the proximal LAD, proximal, mid and distal RCA.? 60% narrowing at the ostium of the circumflex artery.? Minimal intimal irregularities in the other vessels.? Relatively small caliber RV branch of the right coronary artery was found to have a high-grade stenosis proximally. LVEDP of 25 mmHg. ? 3. Based on the angiogram findings, it does not be appropriate to consider IFR of the ostial circumflex lesion.? I discussed and reviewed the angiogram findings with Dr. Escalante.? Dr. Escalante concurred with this plan and took over further management of this patient at this point. . ? 4. Nonischemic FFR value 0.91 was obtained. -Currently chest pain-free Plan -Serial EKGs, serial troponins, telemetry monitoring -Continue aspirin, Brilinta -Cardiac echo LV systolic function is normal with EF of 60 to 65%. ?Grade 1 diastolic dysfunction ?Mild mitral regurgitation ?Mild tricuspid regurgitation ?Compared to prior echocardiogram from 10/2022, no significant ?changes are seen -Telemetry monitoring Shortness of breath, diastolic CHF exacerbation, and pulomnary embolism -Possibly secondary to fluid overload, diastolic CHF -bumex 1mg ivp q24hrs acute pulmonary embolism CT/CT angio chest PE protcl [id number] IMPRESSION: No central pulmonary thromboembolism. Filling defects in multiple right lower lobe subsegmental branches may represent small peripheral thromboembolisms. PLAN -heparin drip Unresponsive episode -Etiology unclear, related to pulomnary embolism -History of sinus pause, sinus bradycardia -Orthostatic vitals Hereditary hemochromatosis History of COPD History of CAD History of vaginal cancer History of bradycardia, history of Sinus pause -Hold beta-jasmin -Recent telemetry monitoring shows sinus pauses longest 3 seconds with bradycardia -consult cardiology Type 2 diabetes mellitus, low-dose sliding scale Attestations Medical Necessity Statement*: patient requires hospitalization for pulmonary embolism, diastolic chf, chest pain Diagnoses Sinus pause I45.5 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
[2022-11-22] MEDS: pantoprazole 40 mg SDV IVP (16:05)
[2022-11-22 16:58] LABS: Glucose Point of Care 125 mg/dL (70-110)
[2022-11-22] MEDS: heparin 5,000 unit/mL INJ 1 mL IV (18:35)
[2022-11-22] MEDS: heparin drip 25,000 UNIT/500 ML PREMIX 25 UNIT IV (18:36)
[2022-11-22] MEDS: atorvastatin 40 mg Tablet PO (20:09)
[2022-11-22 20:41] LABS: Glucose Point of Care 151 mg/dL (70-110)
[2022-11-22] MEDS: insulin lispro 100 unit/1 mL SUBCUT (21:02)
[2022-11-23] VITALS (10 sets, daily range): BP systolic 98–126; BP diastolic 57–89; PULSE 60–85; RESP 17–20; TEMP 36.4–36.7; O2SAT 93–96
[2022-11-23 01:34] LABS: Partial Thromboplastin Time 224.7 SECONDS (23.9-36.7)
[2022-11-23] MEDS: acetaminophen 325 mg Tablet 650 MG PO (01:50)
[2022-11-23 04:45] LABS: Basophils % 0.4 %; Eosinophils # 0.2 10^3/uL (0.0-0.8); Eosinophils % 2.6 %; Hematocrit 37.9 % (36-47); Lymphocytes # 1.3 10^3/uL (0.8-4.8); Mean Corpuscular HGB Conc 32.5 g/dL (30-55); Mean Corpuscular Hemoglobin 34.6 pg (27-33); Mean Corpuscular Volume 106.5 fl (85-98); Mean Platelet Volume 9.4 fL (7.4-10.4); Monocytes # 0.5 10^3/uL (0.2-0.9); Monocytes % 9.5 %; Neutrophils # 3.61 10^3/uL (1.8-7.7); Neutrophils % 63.3 %; Nucleated Red Blood Cells % 0 %; Platelet Count 147 10^3/cmm (157-399); Red Blood Count 3.56 10^6/uL (3.85-5.65); Red Cell Distribution Width 15.3 % (12.1-15.1)
[2022-11-23 05:10] LABS: Alanine Aminotransferase 18 U/L (0-33); Alkaline Phosphatase 93 U/L (35-105); Blood Urea Nitrogen 29 mg/dL (6-20); Calcium 8.6 mg/dL (8.5-10.5); Carbon Dioxide 23 mmol/L (22-29); Chloride 106 mmol/L (98-107); Globulin 3.1 g/dL (1.3-4.6); Glomerular Filtration Rate 57.1 mL/min (90-130); Glucose 132 mg/dL (65-115); Osmolality Calculated 296 mOsm/kg (285-295); Phosphorus 3.4 mg/dL (2.5-4.5); Sodium 139 mmol/L (136-145); Total Bilirubin 0.2 mg/dL (0.15-1.2); Total Protein 6.1 g/dL (6.6-8.7)
[2022-11-23 05:11] LABS: Anion Gap 13.5 (5-19); Aspartate Amino Transferase 17 U/L (0-32); Potassium 3.5 mmol/L (3.5-5.1)
[2022-11-23 05:23] LABS: NT Pro B Type Natriuretic Pept 36 pg/mL (0-125)
[2022-11-23] MEDS: aspirin 81 mg EC Tablet PO (05:36)
[2022-11-23] MEDS: HYDROcodone-acetaminophen 7.5-325 mg Tablet 1 TAB PO (05:39)
[2022-11-23 06:29] LABS: Glucose Point of Care 103 mg/dL (70-110)
[2022-11-23] MEDS: lisinopril 20 mg Tablet PO (10:20)
[2022-11-23] MEDS: ARIPiprazole 30 mg Tablet PO (10:20)
[2022-11-23] MEDS: fluoxetine 20 mg Capsule 40 MG PO (10:20)
[2022-11-23] MEDS: amlodipine 5 mg Tablet 2.5 MG PO (10:21)
[2022-11-23] MEDS: apixaban 5 mg Tablet 10 MG PO (10:21)
[2022-11-23] MEDS: buPROPion XL (24 HR) 300 mg Tablet PO (10:21)
[2022-11-23] MEDS: isosorbide mononitrate ER 30 mg Tablet PO (10:21)
[2022-11-23] MEDS: ticagrelor 90 mg Tablet PO (10:26)
--- NOTE | 2022-11-23 11:12 | P.DS_ITS ---
Discharge Providers Date of Admission: 11/21/22 13:55 Date of Discharge: November 23, 2022 Attending Provider at Admission: Tanvir Avery MD Attending Provider at Discharge: Tanvir Avery MD Primary Care Provider: Ryann Burk Diagnoses at Discharge Discharge Diagnosis (1) Sinus pause: Status: Acute Permanent problem details: 3.1 and 3.5 second pauses on 11/14/22 and 11/15/22 after metoprolol started due to 12 beat run VT (2) Atherosclerotic heart disease of [place] coronary artery with unstable angina pectoris: Status: Acute (3) Syncope: Status: Acute (4) Bradycardia: Status: Acute (5) Port-A-Cath in place: Status: Acute (6) Diastolic CHF: Status: Acute (7) Dyslipidemia: Status: Acute (8) Cirrhosis: Status: Acute (9) CAD (coronary artery disease): Status: Acute (10) COPD (chronic obstructive pulmonary disease): Status: Acute (11) Hemochromatosis: Status: Acute (12) Shortness of breath: Status: Acute (13) Chest pain: Status: Acute (14) Unresponsive episode: Status: Acute (15) Pulmonary embolism: Status: Acute Reason for Visit Reason for Visit: SOB, Chest pressure Hospital Course Hospital Course Le Barnhart is a 57 year old female with a past medical history of hemochromatosis, history of COPD, quit smoking 2 months ago, reported history of vaginal cancer status postchemotherapy, history of breast cancer status postmastectomy, history of recurrent syncopal episodes, with event monitor, history of bradycardia, history of type 2 diabetes mellitus, hypertension, CAD, with multiple PCI's in the past, with 60% narrowing of the ostium of the left circumflex, relatively small RV branch, small caliber of the right coronary artery was found to have high-grade stenosis approximately, left ventricular EDP of 25, FFR 0.91 who presents to [facility] due to shortness of breath, chest pain, and episode of nonresponsiveness.? Patient tells me that for the last week she has been experiencing increasing short of breath short of breath at rest and with exertion, having mild lower extremity edema, no cough, no fevers, no sick contacts, she quit smoking 2 months ago, she tells me that she is also been having intermittent chest pain, substernal, radiating up to her neck, radiating to her back, intermittent associate with shortness of breath, she tells me that at 2 AM this morning, she woke up and she was feeling short of breath, so she sat up in bed, continued to feel short of breath and then she blacked out, she tells me according to patient her gave her [id number] resuscitation for a few seconds, he also shook her to try to wake her up, were not sure if she lost her pulse, but she was immediately awake and alert, following commands, but continued to have shortness of breath, and episodes of chest pain, she refused initially to come to the emergency room after this episode but due to persistent chest pain she came to the emergency room for further evaluation, currently she is chest pain-free, does complain of shortness of breath, she does not use oxygen at home, but at 1 point she did use oxygen during the night, baseline troponin is 14, initial EKG no acute ST-T wave changes, chest x-ray For patient's unresponsive episode, potentially related to new pulmonary embolism, although echocardiogram does not show any radiographic evidence of right heart strain, she does have a history of sinus pause, sinus bradycardia on her last Holter monitor. She is monitored as inpatient, no bradycardic episodes, no sinus pauses on hospital admission, I have stopped her beta-jasmin on discharge, ordered an event monitor, follow-up with cardiology as outpatient For her acute pulmonary embolism, she was found to have filling defects in multiple right lower lobe static segmental branches which may represent small peripheral thromboembolisms, managed with a heparin drip, tolerated it well during her inpatient stay, discharged on Eliquis continue home Diane, follow- up with cardiology as outpatient For her shortness of breath likely multifactorial from new pulmonary embolism, fluid overload, received inpatient diuresis, overall clinically improved, discharged home with close follow-up with cardiology as outpatient Physical Exam Const: COMMON NORMALS: no acute distress and patient oriented x3 Resp: COMMON NORMALS: normal respiratory effort, No retractions, No use of accessory muscles and clear to auscultation bilaterally AUSCULTATION: clear to auscultation bilaterally Cardio: COMMON NORMALS: regular rate, regular rhythm, S1 normal heart sound present and S2 normal heart sound present RATE: regular rate RHYTHM: regular rhythm HEART SOUNDS: S1 normal heart sound present and S2 normal heart sound present GI: COMMON NORMALS: Normal to inspection, nondistended, normoactive bowel sounds present and non-tender Extremity: COMMON NORMALS: no pedal edema Neuro: COMMON NORMALS: patient oriented x3 Psych: COMMON NORMALS: mental status grossly normal Discharge Data Studies Completed and Pending Completed Studies During Hospitalization Category Date Time Status CT angio chest PE protcl [id number] Routine Cat Scan 11/22/22 10:14 Completed XR chest 1V portable [id number] Urgent Exams 11/21/22 09:53 [place] [id number] Routine Ultrasound 11/21/22 15:42 Completed CV. echo complete* [id number] Routine Ultrasound 11/21/22 15:28 Completed Pending at discharge Category Date Time Status Complete Blood Count w/Auto AM LABS Lab 11/24/22 04:00 Ordered Comprehensive Metabolic Panel AM LABS Lab 11/24/22 04:00 Ordered Magnesium AM LABS Lab 11/24/22 04:00 Ordered NT Pro B Type Natriuretic Pept QAM Lab 11/24/22 06:00 Ordered PTT [Partial Thromboplastin Time] Timed Lab 11/23/22 09:45 Ordered Phosphorus AM LABS Lab 11/24/22 04:00 Ordered Urine Culture Routine Lab 11/21/22 18:07 Results Radiology Impressions Venous Duplex 11/21/22 15:42 IMPRESSION: No evidence of deep vein thrombosis. Chest CTA 11/22/22 10:14 IMPRESSION: No central pulmonary thromboembolism. Filling defects in multiple right lower lobe subsegmental branches may represent small peripheral thromboembolisms. ADDENDUM: 11/22/22 1449 ADDENDUM: THIS REPORT CONTAINS FINDINGS THAT MAY BE CRITICAL TO PATIENT CARE. The findings were verbally communicated via telephone conference with Dr. Avery at 2:47 PM CDT on 11/22/2022. The findings were acknowledged and understood. Laboratory Results WBC 5.70 10^3/uL (3.29-11.43) 11/23/22 03:26 RBC 3.56 10^6/uL (3.85-5.65) L 11/23/22 03:26 Hgb 12.30 g/dL (11.27-16.99) 11/23/22 03:26 Hct 37.9 % (36-47) 11/23/22 03:26 MCV 106.5 fl (85-98) H 11/23/22 03:26 MCH 34.6 pg (27-33) H 11/23/22 03:26 MCHC 32.5 g/dL (30-55) 11/23/22 03:26 RDW 15.3 % (12.1-15.1) H 11/23/22 03:26 Plt Count 147 10^3/cmm (157-399) L 11/23/22 03:26 MPV 9.4 fL (7.4-10.4) 11/23/22 03:26 Neut % (Auto) 63.3 % 11/23/22 03:26 Lymph % (Auto) 23.0 % 11/23/22 03:26 Cochran % (Auto) 9.5 % 11/23/22 03:26 Eos % (Auto) 2.6 % 11/23/22 03:26 Baso % (Auto) 0.4 % 11/23/22 03:26 Neut # (Auto) 3.61 10^3/uL (1.8-7.7) 11/23/22 03:26 Lymph # (Auto) 1.3 10^3/uL (0.8-4.8) 11/23/22 03:26 Cochran # (Auto) 0.5 10^3/uL (0.2-0.9) 11/23/22 03:26 Eos # (Auto) 0.2 10^3/uL (0.0-0.8) 11/23/22 03:26 Baso # (Auto) 0.0 10^3/uL (0.0-0.1) 11/23/22 03:26 Nucleated RBC % (auto) 0 % 11/23/22 03:26 Nucleated RBCs # 0.0 /100WBC 11/23/22 03:26 APTT 224.7 SECONDS (23.9-36.7) H* 11/23/22 00:47 D-Dimer 0.45 ug/mLFEU (0-0.59) 11/21/22 10:30 Specimen Type Arterial 11/21/22 16:41 Sample Site Radial, left 11/21/22 16:41 ABG pH 7.45 (7.35-7.45) 11/21/22 16:41 ABG pCO2 39.6 mmHg (35-45) 11/21/22 16:41 ABG pO2 97.1 mmHg (80.0-100.0) 11/21/22 16:41 ABG HCO3 27.5 mmol/L (22-26) H 11/21/22 16:41 ABG Base Excess 3.3 mmol/L (-2.0-2.0) H 11/21/22 16:41 Ritchie Test Pos 11/21/22 16:41 Hematocrit 41.5 % (37-47) 11/21/22 16:41 O2 Delivery Device Nc 11/21/22 16:41 O2 Liters/Min 2.0 % 11/21/22 16:41 FiO2 28.0 % 11/21/22 16:41 Nursing Technician ID Monro 11/21/22 16:41 Sodium 139 mmol/L (136-145) 11/23/22 03:26 Potassium 3.5 mmol/L (3.5-5.1) 11/23/22 03:26 Chloride 106 mmol/L (98-107) 11/23/22 03:26 Carbon Dioxide 23 mmol/L (22-29) 11/23/22 03:26 Anion Gap 13.5 (5-19) 11/23/22 03:26 BUN 29 mg/dL (6-20) H 11/23/22 03:26 Creatinine 1.0 mg/dL (0.5-0.9) H 11/23/22 03:26 GFR Calculation 57.1 mL/min (90-130) L 11/23/22 03:26 Glucose 132 mg/dL (65-115) H 11/23/22 03:26 POC Glucose 103 mg/dL (70-110) 11/23/22 06:24 Estimat Average Glucose 111 11/21/22 10:30 Hemoglobin A1c 5.5 % (4.0-6.0) 11/21/22 10:30 Calculated Osmolality 296 mOsm/kg (285-295) H 11/23/22 03:26 Lactic Acid 1.4 mmol/L (0.5-2.2) 11/21/22 16:55 Calcium 8.6 mg/dL (8.5-10.5) 11/23/22 03:26 Phosphorus 3.4 mg/dL (2.5-4.5) 11/23/22 03:26 Magnesium 2.0 mg/dL (1.7-2.3) 11/23/22 03:26 Iron 103 ug/dL (37-145) 11/21/22 10:30 Ferritin 163 ng/mL (15-150) H 11/21/22 10:30 Total Bilirubin 0.2 mg/dL (0.15-1.2) 11/23/22 03:26 GGT 24 U/L (5-36) 11/21/22 10:30 AST 17 U/L (0-32) 11/23/22 03:26 ALT 18 U/L (0-33) 11/23/22 03:26 Alkaline Phosphatase 93 U/L (35-105) 11/23/22 03:26 Troponin T Baseline 14 ng/L (0-10) H 11/21/22 10:30 Troponin T 120 Minute 9.98 ng/L (0-10) 11/21/22 12:34 Delta Troponin T -4.02 ABS# (0-10) L 11/21/22 12:34 Troponin T Hi Sens 6Hr 12.85 ng/L (0-10) H 11/21/22 16:55 Troponin T Hi Sens 6Hr Delta -1.15 ng/L (0-12) L 11/21/22 16:55 NT-Pro-B Natriuret Pep 36 pg/mL (0-125) 11/23/22 03:26 Total Protein 6.1 g/dL (6.6-8.7) L 11/23/22 03:26 Albumin 3.0 g/dL (3.5-5.2) L 11/23/22 03:26 Globulin 3.1 g/dL (1.3-4.6) 11/23/22 03:26 Triglycerides 149 mg/dL (0-150) 11/21/22 10:30 Cholesterol 132 mg/dL (0-200) 11/21/22 10:30 LDL Cholesterol, Calc 55 mg/dL (50-129) 11/21/22 10:30 HDL Cholesterol 47 mg/dL (60-100) L 11/21/22 10:30 LDL/HDL Ratio 1.17 RATIO (0.00-3.22) 11/21/22 10:30 Cholesterol/HDL Ratio 2.81 mg/dL (0.0-4.40) 11/21/22 10:30 Lipase 9 U/L (13-60) L 11/21/22 10:30 TSH 1.71 uIU/mL (0.27-4.20) 11/21/22 10:30 Random Cortisol 11.69 ug/dL (2.47-19.5) 11/21/22 10:30 Urine Color Yellow (Yellow) 11/21/22 18:07 Urine Appearance Hazy (CLEAR) A 11/21/22 18:07 Urine pH 5 (5-7) 11/21/22 18:07 Ur Specific Dana 1.015 (1.005-1.030) 11/21/22 18:07 Urine Protein Neg (Negative) 11/21/22 18:07 Urine Glucose (UA) Norm (Normal) 11/21/22 18:07 Urine Ketones Negative (Negative) 11/21/22 18:07 Urine Blood Neg (Negative) 11/21/22 18:07 Urine Nitrate Negative (Negative) 11/21/22 18:07 Urine Bilirubin Neg (Negative) 11/21/22 18:07 Urine Urobilinogen Norm mg/dL (Negative) 11/21/22 18:07 Ur Leukocyte Esterase 1+ (Negative) H 11/21/22 18:07 Urine RBC 0-4 /hpf (0-2) H 11/21/22 18:07 Urine WBC 40-55 /hpf (0-5) H 11/21/22 18:07 Ur Squamous Epith Cells 0-4 /hpf (0-5) H 11/21/22 18:07 Amorphous Sediment Not Reportable 11/21/22 18:07 Urine Bacteria 2+ /hpf (NONE) H 11/21/22 18:07 Hyaline Casts 0-4 /lpf H 11/21/22 18:07 Urine Mucus 1+ /hpf 11/21/22 18:07 Urine Opiates Screen Positive ng/mL (Negative) H 11/21/22 18:07 Ur Barbiturates Screen Negative ng/mL (Negative) 11/21/22 18:07 Ur Phencyclidine Scrn Negative ng/mL (Negative) 11/21/22 18:07 Ur Amphetamines Screen Negative ng/mL (Negative) 11/21/22 18:07 U Benzodiazepines Scrn Negative ng/mL (Negative) 11/21/22 18:07 Urine Cocaine Screen Negative ng/mL (Negative) 11/21/22 18:07 U Marijuana (THC) Screen Negative ng/mL (Negative) 11/21/22 18:07 Vitals Last Vital Signs Temp 97.9 F 11/23/22 07:33 Pulse 63 11/23/22 10:14 Resp 20 H 11/23/22 07:33 BP 116/61 11/23/22 10:14 Pulse Ox 94 11/23/22 08:04 O2 Del Method Nasal Cannula 11/23/22 08:04 O2 Flow Rate 2 11/23/22 08:04 Discharge Plan Discharge Patient Disposition: Home Condition: Stable Prescriptions: New Quang DVT-PE Treat 30D Start 5 mg (74 tabs) tablets,dose pack See Rx Instructions .ROUTE .COMPLEX Qty: 74 0RF Rx Instructions: orally per package directions potassium chloride [Klor-Con 10] 10 mEq tablet extended release 10 meq PO DAILY 30 Days Qty: 30 0RF Continued nitroglycerin 0.4 mg tablet, sublingual 0.4 mg sublingual Q5M PRN (Reason: chest pain) Qty: 30 2RF Rx Instructions: do not exceed 3 doses per episode bumetanide 1 mg tablet 1 mg PO QAM Qty: 90 2RF Rx Instructions: increase to 2mg daily for 3 days then reduce to 1mg daily. Take with potassium metformin 500 mg tablet extended release 24 hr 500 mg PO DAILY Januvia 50 mg tablet 50 mg PO DAILY pantoprazole [Protonix] 40 mg tablet,delayed release (DR/EC) 40 mg PO BID 42 Days Qty: 84 1RF Brilinta 90 mg tablet 90 mg PO BID Qty: 180 2RF Hold Instructions: Resume on 09/20/22. amlodipine 2.5 mg tablet 2.5 mg PO DAILY Qty: 30 4RF albuterol sulfate 90 mcg/actuation HFA aerosol inhaler 2 inh INHALATION Q4H PRN (Reason: shortness of breath or wheezing) Qty: 18 0RF ondansetron 4 mg tablet,disintegrating 4 mg PO Q6H PRN (Reason: nausea and vomiting) Qty: 14 0RF hydrocodone-acetaminophen 5-325 mg tablet 1 tab PO Q6H PRN (Reason: Pain) Anoro Ellipta 62.5-25 mcg/actuation blister with device 1 inh INHALATION DAILY Rexulti 3 mg tablet 3 mg PO DAILY lidocaine-prilocaine 2.5-2.5 % cream See Rx Instructions .ROUTE .COMPLEX Rx Instructions: 1 applic topically ;Apply to port 30-45 minutes prior to access albuterol sulfate 2.5 mg /3 mL (0.083 %) solution for nebulization 2.5 mg inhalation Q4H PRN (Reason: Shortness Of Breath) hydroxyzine HCl 25 mg tablet 25 - 50 mg PO QID PRN (Reason: Anxiety) fluoxetine 40 mg capsule 40 mg PO DAILY atorvastatin 40 mg tablet 40 mg PO BEDTIME isosorbide mononitrate 30 mg tablet extended release 24 hr 30 mg PO DAILY Hold Instructions: Resume on 11/03/22. aripiprazole 30 mg tablet 30 mg PO DAILY bupropion HCl 300 mg tablet extended release 24 hr 300 mg PO DAILY lisinopril 40 mg tablet 20 mg PO DAILY Qty: 30 0RF Discontinued metoprolol tartrate 25 mg tablet 25 mg PO BID Qty: 180 3RF meloxicam 15 mg tablet 15 mg PO DAILY Hold Instructions: Resume on 09/20/22. carvedilol 25 mg tablet 25 mg PO BID hydrochlorothiazide 50 mg tablet 50 mg PO QAM prazosin 1 mg capsule 4 mg PO BEDTIME hydralazine 25 mg tablet 25 mg PO BID clopidogrel 75 mg tablet 75 mg PO DAILY paroxetine mesylate(menop.sym) 7.5 mg capsule 7.5 mg PO BEDTIME aspirin 81 mg Tablet,Delayed Release (Dr/Ec) 81 mg PO QAM ibuprofen 400 mg tablet 400 mg PO Q8H PRN (Reason: Pain) methylprednisolone [Medrol (Alessandro)] 4 mg tablets,dose pack See Rx Instructions .ROUTE .COMPLEX Qty: 21 0RF Rx Instructions: orally per package directions Discharge Orders: Discharge Order (Routine); Ordered 11/23/22 Ordered By: Tanvir Avery Other Ambulatory Orders: MCT/Event Monitor 30 Days (Routine) Timeframe: 1 Day Facility: [facility] - Location: Radiology Ordered By: Tanvir Avery Referrals: Yoselyn Woods FNP [Nurse Practitioner] - 1-3 days Ryann Burk [Primary Care Provider] - Discharge Diet: Cardiac Discharge Activity: Resume usual activity Patient Instructions: Opioid Safety Activity Restrictions/Additional Instructions: - If you have any recurrent syncopal episodes please go to the emergency room -Please take Eliquis as prescribed, -If you develop bloody or black stools, please go to the emergency room -Please limit fluid intake to 2000 mL a day -Please see cardiology in 1 week Discharge Attestations Time Spent in Discharge Care*: greater than 30 min Status at Discharge: Cognitive status at discharge: cognitively intact , Behavioral status at discharge: can be uncooperative , Quality Metrics Clinical Quality Measures [ No reported AMI, CVA or VTE this stay] Coding Level of Care Code 45955 Total time (in minutes) for Discharge: 45 Diagnoses Sinus pause I45.5 Atherosclerotic heart disease of [place] coronary artery with unstable angina pe ctoris I25.110 Syncope R55 Bradycardia R00.1 Port-A-Cath in place Z95.828 Diastolic CHF I50.30 Dyslipidemia E78.5 Cirrhosis K74.60 CAD (coronary artery disease) I25.10 COPD (chronic obstructive pulmonary disease) J44.9 Hemochromatosis E83.119 Shortness of breath R06.02 Chest pain R07.9 Unresponsive episode R40.4 Pulmonary embolism I26.99
--- NOTE | 2022-11-23 12:01 | P.HP_ITS ---
Providers/Chief Complaint Admitting Physician: Tanvir Avery MD Primary Care Provider: Ryann Burk Chief Complaint: SOB, Chest pressure History of Present Illness Le Barnhart is a 57 year old female Review of Systems Const: Denies: fever(s) or chills Eyes: Denies: change in vision ENMT: Denies: throat pain Card: Denies: chest pain or palpitations Resp: Denies: dyspnea or productive cough GI: Denies: abdominal pain, nausea or vomiting : Denies: flank pain Musc: Denies: neck pain or back pain Skin/Breast: Denies: rash Neuro: Denies: headache(s), numbness in extremities, weakness in extremities, dizziness, vertigo or confusion Endo: Denies: polyuria Medications/Allergies Home Medications Medication Instructions Recorded Confirmed Last Taken Type albuterol sulfate 2.5 mg/3 mL 2.5 mg inhalation Q4H PRN 06/10/22 11/21/22 09/16/22 History (0.083 %) solution for nebulization Shortness Of Breath aspirin 81 mg tablet,delayed 81 mg PO QAM 06/10/22 11/21/22 11/21/22 History release hydroxyzine HCl 25 mg tablet 25 - 50 mg PO QID PRN Anxiety 06/10/22 11/21/22 11/21/22 History albuterol sulfate 90 mcg/actuation 2 inh inhalation Q4H PRN shortness 06/14/22 11/21/22 09/16/22 Rx aerosol inhaler of breath or wheezing #18 grams meloxicam 15 mg tablet 15 mg PO DAILY 06/14/22 11/21/22 11/21/22 History bumetanide 1 mg tablet 1 mg PO QAM #90 tabs 06/25/22 11/21/22 11/21/22 Rx nitroglycerin 0.4 mg sublingual 0.4 mg sublingual Q5M PRN chest 06/25/22 11/21/22 Unknown Rx tablet pain #30 tabs ondansetron 4 mg disintegrating 4 mg PO Q6H PRN nausea and 07/17/22 11/21/22 Unknown Rx tablet vomiting #14 tabs pantoprazole 40 mg tablet,delayed 40 mg PO BID 6 weeks #84 tabs 07/22/22 3 11/21/22 Rx release (Protonix) ticagrelor 90 mg tablet (Brilinta) 90 mg PO BID #180 tabs 08/05/22 11/21/22 11/21/22 Rx aripiprazole 30 mg tablet 30 mg PO DAILY 10/24/22 11/21/22 11/21/22 History atorvastatin 40 mg tablet 40 mg PO BEDTIME 10/24/22 11/21/22 11/20/22 History bupropion HCl 300 mg 24 hr tablet, 300 mg PO DAILY 10/24/22 11/21/22 11/21/22 History extended release fluoxetine 40 mg capsule 40 mg PO DAILY 10/24/22 11/21/22 11/21/22 History ibuprofen 400 mg tablet 400 mg PO Q8H PRN Pain 10/24/22 11/21/22 Unknown History isosorbide mononitrate 30 mg 30 mg PO DAILY 10/24/22 11/21/22 11/21/22 History tablet,extended release 24 hr lisinopril 40 mg tablet 20 mg PO DAILY #30 tabs 10/27/22 11/21/22 11/21/22 Rx amlodipine 2.5 mg tablet 2.5 mg PO DAILY #30 tabs 11/03/22 11/21/22 11/21/22 Rx metoprolol tartrate 25 mg tablet 25 mg PO BID #180 tabs 11/11/22 11/21/22 11/21/22 Rx methylprednisolone 4 mg tablets in See Rx Instructions PO .COMPLEX 11/15/22 11/21/22 11/21/22 Rx a dose pack (Infinisourcerol (Alessandro)) #21 ea metformin 500 mg tablet,extended 500 mg PO DAILY 11/20/22 11/21/22 11/21/22 History release 24 hr sitagliptin phosphate 50 mg tablet 50 mg PO DAILY 11/20/22 11/21/22 11/21/22 History (Januvia) brexpiprazole 3 mg tablet (Rexulti) 3 mg PO DAILY 11/21/22 11/21/22 11/21/22 History carvedilol 25 mg tablet 25 mg PO BID 11/21/22 11/21/22 11/21/22 History clopidogrel 75 mg tablet 75 mg PO DAILY 11/21/22 11/21/22 11/21/22 History hydralazine 25 mg tablet 25 mg PO BID 11/21/22 11/21/22 11/21/22 History hydrochlorothiazide 50 mg tablet 50 mg PO QAM 11/21/22 11/21/22 11/21/22 History hydrocodone 5 mg-acetaminophen 325 1 tab PO Q6H PRN Pain 11/21/22 11/21/22 Unknown History mg tablet lidocaine-prilocaine 2.5 %-2.5 % See Rx Instructions .Route .COMPLEX 11/21/22 11/21/22 11/21/22 History topical cream paroxetine mesylate(menop.sym) 7.5 7.5 mg PO BEDTIME 11/21/22 11/21/22 11/20/22 History mg capsule prazosin 1 mg capsule 4 mg PO BEDTIME 11/21/22 11/21/22 11/20/22 History umeclidinium 62.5 mcg-vilanterol 1 inh inhalation DAILY 11/21/22 11/21/22 11/21/22 History 25 mcg/actuation powdr for inhalation (Anoro Ellipta) Allergies Allergy/AdvReac Type Severity Reaction Status Date / Time ketorolac [From Toradol] Allergy ALGY-Hives Verified 11/21/22 10:30 prochlorperazine Allergy Unknown Verified 11/21/22 10:30 [From Compazine] PFSH Acute PFSH: Medical History (Updated 11/23/22 @ 00:01 by LLOYD Irizarry) Atherosclerotic heart disease of [place] coronary artery with unstable angina pectoris CAD (coronary artery disease) Cirrhosis COPD (chronic obstructive pulmonary disease) Hemochromatosis Hemochromatosis Hypertension Nocturnal hypoxia NSAID long-term use Smoking addiction Status post chemoradiation Vaginal tumors Surgical History H/O vaginal surgery Hx of appendectomy Hx of colonoscopy with polypectomy 10 yrs ago Family History Denies family history of Colon cancer Ovarian cancer Diabetes Heart disease Hypercholesteremia Breast cancer Hypertension Uterine cancer Thyroid disease Stroke Social History Smoking and tobacco status: former smoker Quit status (tobacco): quit date established Planned quit date: 05/27/22 Alcohol intake: never Substance/Drug Use: never Lives independently: Yes Household members: significant other Marital status: Single Vitals/I&O/Wt Last Vital Signs Temp 98.0 F 11/23/22 11:45 Pulse 63 11/23/22 10:14 Resp 20 H 11/23/22 07:33 BP 116/57 11/23/22 11:45 Pulse Ox 94 11/23/22 08:04 O2 Del Method Nasal Cannula 11/23/22 08:04 O2 Flow Rate 2 11/23/22 08:04 11/22/22 11/23/22 11/23/22 22:59 06:59 14:59 Intake Total 960 / 2440 737.083 / 3177.083 240 / 240 Output Total 100 / 200 600 / 800 Balance 860 / 2240 137.083 / 2377.083 240 / 240 Physical Exam Const: COMMON NORMALS: no acute distress and patient oriented x3 Resp: COMMON NORMALS: normal respiratory effort, No retractions, No use of accessory muscles and clear to auscultation bilaterally AUSCULTATION: clear to auscultation bilaterally Cardio: COMMON NORMALS: regular rate, regular rhythm, S1 normal heart sound present and S2 normal heart sound present RATE: regular rate RHYTHM: regular rhythm HEART SOUNDS: S1 normal heart sound present and S2 normal heart sound present GI: COMMON NORMALS: Normal to inspection, nondistended, normoactive bowel so unds present and non-tender Extremity: COMMON NORMALS: no pedal edema Neuro: COMMON NORMALS: patient oriented x3 Psych: COMMON NORMALS: mental status grossly normal Data 11/23/22 03:26 11/23/22 03:26 Micro: Microbiology 11/21/22 18:07 Urine Culture - Preliminary Urine,Clean Catch Gram Negative Rods A&P Assessment and plan (1) Sinus pause: (2) Atherosclerotic heart disease of [place] coronary artery with unstable angina pectoris: (3) Syncope: (4) Bradycardia: (5) Port-A-Cath in place: (6) Diastolic CHF: (7) Dyslipidemia: (8) Cirrhosis: (9) CAD (coronary artery disease): (10) COPD (chronic obstructive pulmonary disease): (11) Hemochromatosis: (12) Shortness of breath: (13) Chest pain: (14) Unresponsive episode: (15) Pulmonary embolism: Plan Agree with plans for discharge home today Chest pain Coronary angiogram 06/09/2022 ?2. Patent stented segments of the proximal LAD, proximal, mid and distal RCA.? 60% narrowing at the ostium of the circumflex artery.? Minimal intimal irregularities in the other vessels.? Relatively small caliber RV branch of the right coronary artery was found to have a high-grade stenosis proximally. LVEDP of 25 mmHg. ? 3. Based on the angiogram findings, it does not be appropriate to consider IFR of the ostial circumflex lesion.? I discussed and reviewed the angiogram findings with Dr. Escalante.? Dr. Escalante concurred with this plan and took over further management of this patient at this point. . ? 4. Nonischemic FFR value 0.91 was obtained. -Currently chest pain-free acute pulmonary embolism CT/CT angio chest PE protcl [id number] IMPRESSION: No central pulmonary thromboembolism. Filling defects in multiple right lower lobe subsegmental branches may represent small peripheral thromboembolisms. PLAN -heparin drip converting to oral anticoagulant Unresponsive episode -Etiology unclear, possibly related to pulmonary embolism -History of sinus pause, sinus bradycardia -Orthostatic vitals Hereditary hemochromatosis History of COPD History of CAD History of bradycardia, history of Sinus pause -Hold beta-jasmin -Recent telemetry monitoring shows sinus pauses longest 3 seconds with bradyca rdia -oupatient event monitor Attestations Medical Necessity Statement*: PE Coding Level of Care Code 76602 Diagnoses Sinus pause I45.5 Atherosclerotic heart disease of [place] coronary artery with unstable angina pectoris I25.110 Syncope R55 Bradycardia R00.1 Port-A-Cath in place Z95.828 Diastolic CHF I50.30 Dyslipidemia E78.5 Cirrhosis K74.60 CAD (coronary artery disease) I25.10 COPD (chronic obstructive pulmonary disease) J44.9 Hemochromatosis E83.119 Shortness of breath R06.02 Chest pain R07.9 Unresponsive episode R40.4 Pulmonary embolism I26.99
--- NOTE | 2022-11-23 12:03 | PC.SOCIAL ---
Home O2 eval Patient didnt qualify for oxygen at this time
[2022-11-23 12:15] LABS: Glucose Point of Care 141 mg/dL (70-110)
--- NOTE | 2022-11-23 16:20 | PC.NURSE ---
Discharge Note Patient discharged to [home] via [w/c to POV] accompanied by [family]. Discharge instructions reviewed with patient and/or entry level sales representative. Mobile pharmacy medications and/or prescriptions provided. Belongings/home medications returned.
== END 2022-11-23 13:15 | disposition home or self-care (01) ==
LOC: ER 10:45 → CSU 14:07
PROVIDERS: Physician Assistant; Admitting Provider Family Medicine; Emergency Provider Family Medicine; PCP Family Medicine; Visit Provider Family Medicine
DX: I45.5 Other specified heart block (principal); I25.110 Atherosclerotic heart disease of native coronary artery with unstable angina pectoris; R55 Syncope and collapse; R00.1 Bradycardia, unspecified; Z95.828 Presence of other vascular implants and grafts; I50.30 Unspecified diastolic (congestive) heart failure; E78.5 Hyperlipidemia, unspecified; K74.60 Unspecified cirrhosis of liver; I25.10 Atherosclerotic heart disease of native coronary artery without angina pectoris; J44.9 Chronic obstructive pulmonary disease, unspecified; E83.119 Hemochromatosis, unspecified; R06.02 Shortness of breath; R07.9 Chest pain, unspecified; R40.4 Transient alteration of awareness; I26.99 Other pulmonary embolism without acute cor pulmonale; Z87.891 Personal history of nicotine dependence; Z85.89 Personal history of malignant neoplasm of other organs and systems; Z85.3 Personal history of malignant neoplasm of breast; Z79.1 Long term (current) use of non-steroidal anti-inflammatories (NSAID)
CPT/HCPCS: 36415; 36416; 36600; 71045; 71275; 80053; 80061; 80306; 81001; 82533; 82728; 82803; 82962; 82977; 83036; 83540; 83605; 83690; 83735; 83880; 84100; 84443; 84484; 85025; 85378; 85730; 87077; 87086; 87186; 93005; 93306; 93970; 94664; 94760; 96365; 96366; 96372; 96375; 96376; 97161; 97165; 97530; 99285; C9113; G0378; J1644; J1650; J1815; J2270; J3490; Q9967

== ENCOUNTER → 2022-12-03 11:17 | Outpatient (BNVA) | payer MEDICAID, SELFPAY | PROVIDERS: PCP Family Medicine; Visit Provider Internal Medicine Cardiovascular Disease | DX: I45.5 Other specified heart block (principal); R00.1 Bradycardia, unspecified; R40.4 Transient alteration of awareness | CPT/HCPCS: 93270 ==

== ENCOUNTER → 2022-12-10 13:40 | Outpatient (BNVA) | payer MEDICAID, SELFPAY | PROVIDERS: PCP Family Medicine; Visit Provider Podiatrist Foot & Ankle Surgery | DX: M72.2 Plantar fascial fibromatosis (principal); S93.601A Unspecified sprain of right foot, initial encounter; E11.9 Type 2 diabetes mellitus without complications; X58.XXXA Exposure to other specified factors, initial encounter; Z79.84 Long term (current) use of oral hypoglycemic drugs | CPT/HCPCS: 99213 ==

== ENCOUNTER 2022-12-11 15:28 | Observation (INO) | payer MEDICAID, SELFPAY ==
[2022-12-11] VITALS (23 sets, daily range): BP systolic 112–149; BP diastolic 60–91; PULSE 60–83; RESP 15–34; TEMP 36.9; O2SAT 93–94
--- NOTE | 2022-12-11 15:36 | ECG_ITS ---
[facility] Test Date: 2022-12-11 Pat Name: Le Barnhart Department: Room: Gender: Female Operating Room Scheduler: : 1965 Requested By: Summer Simmons Order Number: [id number] Jessica MD: David Escalante M.D. Measurements Intervals [place] Rate: 82 P: 78 CO: 169 QRS: 64 QRSD: 82 T: 13 QT: 342 QTc: 401 Interpretive Statements SINUS RHYTHM NONSPECIFIC T-WAVE ABNORMALITY Compared to ECG 11/21/2022 17:08:03 Sinus bradycardia no longer present T-wave abnormality still present Electronically Signed On 12-11-2022 21:42:41 CDT by David Escalante M.D. [id number]
--- NOTE | 2022-12-11 16:09 | XRR_ITS ---
PROCEDURE INFORMATION: Exam: XR Chest Exam date and time: 12/11/2022 4:18 PM Age: 57 years old Clinical indication: Pain; Angina pectoris; Prior surgery; Surgery date: 6+ months; Surgery type: RT mastectomy, port; Patient HX: HX of breast cancer; Additional info: Chest pain TECHNIQUE: Imaging protocol: Radiologic exam of the chest. Views: 1 view. COMPARISON: CR XR chest 1V portable [id number] 11/21/2022 10:16 AM FINDINGS: Tubes, catheters and devices: There is a right-sided chest port whose tip projects just below the right cavoatrial junction unchanged. Lungs: Lung volumes are mildly decreased. Lung botello are essentially clear without infiltrates or overt CHF. Pleural spaces: Unremarkable. No pleural effusion. No pneumothorax. Heart/Mediastinum: Heart is mildly enlarged. Bones/joints: Evidence of prior ACDF. There is electronic monitoring device projecting over the mid chest. XR/XR chest 1V portable [id number] IMPRESSION: Mild cardiomegaly. Lungs clear. No active disease.
--- NOTE | 2022-12-11 16:13 | W.ED.CHESTPA ---
HPI - Chest Pain General: Chief Complaint: Chest Pain Stated Complaint: chest pain, sob Time Seen by Provider: 12/11/22 16:13 Source: patient Mode of arrival: ambulatory Limitations: no limitations History of Present Illness: This 57-year-old female with a history of coronary artery disease presents to the ER with chest pain that started around 4:30 AM. She describes it more as a chest pressure and it is associated with shortness of breath. Chest pressure has more or less been constant since onset. She took 2 doses of nitroglycerin prior to arrival to the ER. She denies fever, nausea, vomiting or any other pertinent symptoms. She has a history of pulmonary embolism and is currently on Eliquis. Associated symptoms: Reports dyspnea Review of Systems Const: Denies: chills, body aches or change in appetite Eyes: Denies: change in vision or eye discharge ENMT: Denies: throat pain, dental pain or nasal discharge Card: Reports: chest pain (chest pressure) Resp: Reports: dyspnea : Denies: dysuria Musc: Denies: neck pain or back pain Neuro: Denies: headache(s) or weakness in extremities Psych: Denies: depression Alfonso/Lymph: Denies: easy bruising All/Imm: Denies: urticaria, tongue swelling or facial swelling PFSH ED PFSH: Medical History Atherosclerotic heart disease of [place] coronary artery with unstable angina pectoris CAD (coronary artery disease) Cirrhosis COPD (chronic obstructive pulmonary disease) Hemochromatosis Hemochromatosis Hypertension Nocturnal hypoxia NSAID long-term use Smoking addiction Status post chemoradiation Vaginal tumors Surgical History H/O vaginal surgery Hx of appendectomy Hx of colonoscopy with polypectomy 10 yrs ago Family History Denies family history of Colon cancer Ovarian cancer Diabetes Heart disease Hypercholesteremia Breast cancer Hypertension Uterine cancer Thyroid disease Stroke Social History Smoking and tobacco status: former smoker Quit status (tobacco): quit date established Planned quit date: 05/27/22 Alcohol intake: never Substance/Drug Use: never Lives independently: Yes Household members: significant other Marital status: Single Physical Exam Const: COMMON NORMALS: no acute distress, patient oriented x3, no limitations and alert HENMT: COMMON NORMALS: normocephalic HEAD & SCALP: normocephalic Eye: COMMON NORMALS: EOMs intact bilaterally Neck/C-Spine: COMMON NORMALS: full ROM and supple Chest: COMMONS NORMALS: normal inspection of the chest Resp: COMMON NORMALS: normal respiratory effort, No retractions, No use of accessory muscles and clear to auscultation bilaterally AUSCULTATION: clear to auscultation bilaterally Cardio: COMMON NORMALS: regular rate, regular rhythm and No murmurs present (Cardio) RATE: regular rate RHYTHM: regular rhythm GI: COMMON NORMALS: Normal to inspection, nondistended, normoactive bowel sounds present and non-tender : COMMON NORMALS: Yes no CVA tenderness BLADDER/KIDNEY EXAM: Yes no CVA tenderness Back/Pelvis: COMMON NORMALS: no CVA tenderness and no thoracic nor lumbar tenderness Extremity: GENERAL: Yes normal exam except as noted Neuro: COMMON NORMALS: patient oriented x3 and no focal motor deficits SENSORIUM/ORIENTATION: Yes alert Psych: COMMON NORMALS: mental status grossly normal and cooperative Course Vital Signs: Vital signs: Vital Signs Temperature 98.5 F 12/11/22 15:34 Pulse Rate 62 12/11/22 22:08 Respiratory Rate 18 12/11/22 21:52 Blood Pressure 125/69 12/11/22 22:08 Pulse Oximetry 93 12/11/22 22:08 Oxygen Delivery Me thod Room Air 12/11/22 22:08 MDM - Chest Pain Medical Decision Making Medical decision making: History as above. Patient's initial troponin is 10.0 and repeat troponin 2 hours later is 10.13. CT chest is negative for acute pulmonary embolism. On reevaluation, patient noted that chest pain had not gone away. It was slightly better. Given the persistence of her chest pain despite receiving nitroglycerin and morphine, patient will be admitted for further evaluation. Case discussed with Dr. Wiggins who accepted patient for admission. Lab Data 12/11/22 16:32 12/11/22 16:32 Radiology Impressions Chest X-Ray 12/11/22 16:09 IMPRESSION: Mild cardiomegaly. Lungs clear. No active disease. Chest CTA 12/11/22 18:54 IMPRESSION: Motion degraded exam without convincing evidence of acute central, lobar, or segmental pulmonary emboli. Although thought unlikely, difficult to entirely exclude small subsegmental embolic phenomenon. Laboratory Results WBC 6.81 10^3/uL (3.29-11.43) 12/11/22 16:32 RBC 3.63 10^6/uL (3.85-5.65) L 12/11/22 16:32 Hgb 12.70 g/dL (11.27-16.99) 12/11/22 16:32 Hct 37.4 % (36-47) 12/11/22 16:32 MCV 103.0 fl (85-98) H 12/11/22 16:32 MCH 35.0 pg (27-33) H 12/11/22 16:32 MCHC 34.0 g/dL (30-55) 12/11/22 16:32 RDW 14.7 % (12.1-15.1) 12/11/22 16:32 Plt Count 179 10^3/cmm (157-399) 12/11/22 16:32 MPV 9.2 fL (7.4-10.4) 12/11/22 16:32 Neut % (Auto) 69.1 % 12/11/22 16:32 Lymph % (Auto) 16.6 % 12/11/22 16:32 [place] % (Auto) 10.1 % 12/11/22 16:32 Eos % (Auto) 2.2 % 12/11/22 16:32 Baso % (Auto) 0.4 % 12/11/22 16:32 Neut # (Auto) 4.70 10^3/uL (1.8-7.7) 12/11/22 16:32 Lymph # (Auto) 1.1 10^3/uL (0.8-4.8) 12/11/22 16:32 [place] # (Auto) 0.7 10^3/uL (0.2-0.9) 12/11/22 16:32 Eos # (Auto) 0.2 10^3/uL (0.0-0.8) 12/11/22 16:32 Baso # (Auto) 0.0 10^3/uL (0.0-0.1) 12/11/22 16:32 Nucleated RBC % (auto) 0 % 12/11/22 16:32 Nucleated RBCs # 0.0 /100WBC 12/11/22 16:32 Sodium 146 mmol/L (136-145) H 12/11/22 16:32 Potassium 3.8 mmol/L (3.5-5.1) 12/11/22 16:32 Chloride 110 mmol/L (98-107) H 12/11/22 16:32 Carbon Dioxide 23 mmol/L (22-29) 12/11/22 16:32 Anion Gap 16.8 (5-19) 12/11/22 16:32 BUN 22 mg/dL (6-20) H 12/11/22 16:32 Creatinine 1.0 mg/dL (0.5-0.9) H 12/11/22 16:32 GFR Calculation 57.1 mL/min (90-130) L 12/11/22 16:32 Glucose 107 mg/dL (65-115) 12/11/22 16:32 Calculated Osmolality 306 mOsm/kg (285-295) H 12/11/22 16:32 Calcium 9.1 mg/dL (8.5-10.5) 12/11/22 16:32 Total Bilirubin 0.3 mg/dL (0.15-1.2) 12/11/22 16:32 AST 13 U/L (0-32) 12/11/22 16:32 ALT 16 U/L (0-33) 12/11/22 16:32 Alkaline Phosphatase 104 U/L (35-105) 12/11/22 16:32 Troponin T Baseline 10 ng/L (0-10) 12/11/22 16:32 Troponin T 120 Minute 10.13 ng/L (0-10) H 12/11/22 20:09 Delta Troponin T 0.13 ABS# (0-10) 12/11/22 20:09 NT-Pro-B Natriuret Pep 239 pg/mL (0-125) H 12/11/22 16:32 Total Protein 6.4 g/dL (6.6-8.7) L 12/11/22 16:32 Albumin 3.9 g/dL (3.5-5.2) 12/11/22 16:32 Globulin 2.5 g/dL (1.3-4.6) 12/11/22 16:32 All radiology interpretation(s) finalized by discharge Discharge Plan Discharge Patient Disposition: Admitted As Inpatient Admit Provider: Pam Wiggins Clinical Impression: Chest pain Condition: Stable Coding Level of Care Code ED Senior Chemical Engineer for Ann Machuca
[2022-12-11] MEDS: nitroglycerin 0.4 mg sublingual Tablet SUBLINGUAL (16:38)
[2022-12-11 16:40] LABS: Basophils % 0.4 %; Eosinophils # 0.2 10^3/uL (0.0-0.8); Eosinophils % 2.2 %; Hematocrit 37.4 % (36-47); Lymphocytes # 1.1 10^3/uL (0.8-4.8); Lymphocytes % 16.6 %; Mean Platelet Volume 9.2 fL (7.4-10.4); Monocytes # 0.7 10^3/uL (0.2-0.9); Monocytes % 10.1 %; Neutrophils % 69.1 %; Nucleated Red Blood Cells % 0 %; Platelet Count 179 10^3/cmm (157-399); Red Blood Count 3.63 10^6/uL (3.85-5.65); Red Cell Distribution Width 14.7 % (12.1-15.1); White Blood Count 6.81 10^3/uL (3.29-11.43)
[2022-12-11 17:05] LABS: Troponin(5th) Baseline 10 ng/L (0-10)
[2022-12-11 17:17] LABS: Alanine Aminotransferase 16 U/L (0-33); Albumin Level 3.9 g/dL (3.5-5.2); Alkaline Phosphatase 104 U/L (35-105); Anion Gap 16.8 (5-19); Aspartate Amino Transferase 13 U/L (0-32); Blood Urea Nitrogen 22 mg/dL (6-20); Calcium 9.1 mg/dL (8.5-10.5); Carbon Dioxide 23 mmol/L (22-29); Chloride 110 mmol/L (98-107); Globulin 2.5 g/dL (1.3-4.6); Glomerular Filtration Rate 57.1 mL/min (90-130); Glucose 107 mg/dL (65-115); NT Pro B Type Natriuretic Pept 239 pg/mL (0-125); Osmolality Calculated 306 mOsm/kg (285-295); Potassium 3.8 mmol/L (3.5-5.1); Sodium 146 mmol/L (136-145); Total Bilirubin 0.3 mg/dL (0.15-1.2); Total Protein 6.4 g/dL (6.6-8.7)
[2022-12-11] MEDS: morphine 4 mg/mL SDV 1 mL IVP ×2 (17:46→21:52)
--- NOTE | 2022-12-11 18:09 | ECG_ITS ---
[facility] Test Date: 2022-12-11 Pat Name: Le Barnhart Department: Room: Gender: Female Clinic Physician: : 1965 Requested By: uSmmer Simmons Order Number: [id number] Jessica MD: David Escalante M.D. Measurements Intervals [place] Rate: 72 P: 78 MO: 165 QRS: 74 QRSD: 86 T: 0 QT: 360 QTc: 394 Interpretive Statements SINUS RHYTHM NONSPECIFIC ST & T-WAVE ABNORMALITY Compared to ECG 11/21/2022 17:08:03 Sinus bradycardia no longer present T-wave abnormality still present Electronically Signed On 12-11-2022 21:43:16 CDT by David Escalante M.D. [id number]
--- NOTE | 2022-12-11 18:54 | CTR_ITS ---
PROCEDURE INFORMATION: Exam: CTA Chest With Contrast Exam date and time: 12/11/2022 8:33 PM Age: 57 years old Clinical indication: Pain; Chest pressure TECHNIQUE: Imaging protocol: Computed tomographic angiography of the chest with contrast. Exam focused on the arteries. 3D rendering (Not supervised by radiologist): MIP and/or 3D reconstructed images were created by the technologist. Radiation optimization: All CT scans at this facility use at least one of these dose optimization techniques: automated exposure control; mA and/or kV adjustment per patient size (includes targeted exams where dose is matched to clinical indication); or iterative reconstruction. Contrast material: [id number]; Contrast volume: 100 ml; Contrast route: INTRAVENOUS (IV); REPORTING DATA: Count of CT and Cardiac NM exams in prior 12 months: This patient has received 7 known CTs and 0 known cardiac nuclear medicine studies in the 12 months prior to the current study. COMPARISON: 1. CT angio chest PE protcl [id number] 11/22/2022 1:[address] angio chest PE protcl [id number] 10/24/2022 11:[address] angio chest PE protcl [id number] 06/17/2022 5:14 PM RADIATION DOSE METRICS: Total DLP (mGy-cm): 476 FINDINGS: Tubes, catheters and devices: Right chest port terminates at the superior cavoatrial junction. Pulmonary arteries: Suboptimal evaluation due to motion artifact, degrading image quality and decreasing sensitivity. No convincing evidence of central, lobar, or segmental filling defect. No definite subsegmental filling defect. Aorta: Mild systemic atherosclerotic calcification without aortic aneurysm. No aortic dissection. Lungs: Right lower lobe basilar platelike atelectasis. No consolidation. No masses. Pleural spaces: Unremarkable. No pneumothorax. No pleural effusion. Heart: Mild cardiomegaly. No pericardial effusion. Coronary arteries: Mild coronary artery calcification and stent material. Lymph nodes: Unremarkable. No enlarged lymph nodes. Adrenal glands: Stable left adrenal gland thickening. Bones/joints: No acute fracture. Mild degenerative changes along the spine. Stable nonaggressive sclerotic focus at the T7 vertebral body. Soft tissues: Prior right mastectomy. CT/CT angio chest PE protcl [id number] IMPRESSION: Motion degraded exam without convincing evidence of acute central, lobar, or segmental pulmonary emboli. Although thought unlikely, difficult to entirely exclude small subsegmental embolic phenomenon.
[2022-12-11 20:35] LABS: Troponin 5 2HR 10.13 ng/L (0-10); Troponin 5 2HR Delta 0.13 ABS# (0-10)
[2022-12-11] MEDS: iohexol 350 mg/mL 500 mL Btl (per mL) IV (20:41)
--- NOTE | 2022-12-11 22:09 | ECG_ITS ---
[facility] Test Date: 2022-12-11 Pat Name: Le Barnhart Department: Room: 104 Gender: Female Project Manager Process Development: : 1965 Requested By: Summer Simmons Order Number: [id number] Jessica MD: David Escalante M.D. Measurements Intervals [place] Rate: 82 P: 78 [place]: 169 QRS: 64 QRSD: 82 T: 13 QT: 342 QTc: 401 Interpretive Statements SINUS RHYTHM NONSPECIFIC T-WAVE ABNORMALITY Compared to ECG 11/21/2022 17:08:03 Sinus bradycardia no longer present T-wave abnormality still present Electronically Signed On 12-11-2022 23:34:54 CDT by David Escalante M.D. [id number] f
[2022-12-11 23:02] LABS: Troponin 5 6HR Delta -0.14 ng/L (0-12)
[2022-12-11 23:03] LABS: Troponin 5 6HR 9.86 ng/L (0-10)
[2022-12-12] VITALS (8 sets, daily range): BP systolic 112–151; BP diastolic 70–84; PULSE 66–80; RESP 13–22; TEMP 36.6–36.8; O2SAT 92–98
--- NOTE | 2022-12-12 | ECG_ITS ---
[facility] Test Date: 2022-12-12 Pat Name: Le Barnhart Department: Room: 104 Gender: Female Pediatric Physician Assistant: Moiz Justice : 1965 Requested By: Pam Wiggins Order Number: [id number] MD: David Escalante M.D. Interpretive Statements NAME OF STUDY: LEXISCAN SESTAMIBI STRESS TEST INDICATION: [Chest Pain, ] Procedure: At the baseline, the blood pressure was 134/75 mmHg with a heart rate of 64 bpm. The electrocardiogram showed normal sinus rhythm, normal axis with normal ST and T's. The Lexiscan was infused over a period of 20 seconds. A total of 0.4 mg of Lexiscan was infused. The stress phase was continued for a total of 5 minutes. Heart rate was at the end of stress phase was 91 bpm and a blood pressure of 163/90 mmHg. The EKG at the peak infusion revealed normal sinus rhythm with no significant ST-T wave changes. Sestamibi was injected 20 seconds after the Lexiscan infusion. Blood pressure at the end of recovery phase was 151/84 mmHg with a heart rate of 78 bpm. Conclusion: 1. Normal EKG response to Lexiscan infusion 2. No Lexiscan induced chest pain or cardiac arrhythmia. 3. Normal blood pressure and heart rate response. 4. Sestamibi/sestamibi perfusion scan pending; see separate report. Electronically Signed On 12-22-2022 12:46:33 CDT by David Escalante M.D. [id number]
--- NOTE | 2022-12-12 01:26 | PM.HP ---
Providers/Chief Complaint Admitting Physician: Pam Wiggins MD Primary Care Provider: Ryann Burk Chief Complaint: chest pain, sob History of Present Illness Le Barnhart is a 57 year old female with a past medical history of hemochromatosis, history of COPD, quit smoking 2 months ago, reported history of vaginal cancer status postchemotherapy, history of breast cancer status postmastectomy, history of recurrent syncopal episodes, with event monitor, history of bradycardia, history of type 2 diabetes mellitus, hypertension, CAD, with multiple PCI's in the past. She presented to the emergency room in view of chest pain. She describes as a chest pressure located in the middle of the chest. There are no aberrant exacerbating or relieving factors. Nitroglycerin does not seem to improve it. She has a history of pulmonary embolism approximately 1 month ago for which she is on Eliquis. CTA repeated today did not show any evidence of acute PE. Baseline troponin is at 10, stable at 2 hours at 10.13, 6-hour trend at 9.86 with a negative delta. BNP is at 239. There are no acute ST-T wave changes on EKG. patient has a Holter monitor in place which picked up a 3-second pause earlier today, this is not new for the patient. She follows closely with cardiology as outpatient, last seen in November 20, 2022. She currently has a Holter monitor in place due to reported history of multiple syncopal episodes. Per review of outpatient cardiology notes it appears that 2 reported syncopal episodes were in sinus rhythm, one episode was with VT lasting 12 seconds. She was started on metoprolol 25 mg twice daily after this episode. She reports hypoxia at home, however on multiple outpatient visits she has been noted to be saturating well. She has a history of obstructive sleep apnea but does not tolerate CPAP. She was recently admitted to the hospital on November 23, 2022 for intermittent chest pain, exertional shortness of breath and a syncopal episode at home. This is when pulmonary embolism was discovered and she was started on Eliquis. There was no evidence of a saddle emboli, multiple filling defects were noted to have in the right lower lobe segmental branches. She has been on Eliquis and Brilinta since then. She was noted to have sinus pauses lasting 3 to 3.5 seconds following which metoprolol was discontinued. Review of Systems General: Reports: 10 or more systems reviewed and unremarkable except in HPI and below Const: Denies: fever(s), chills or body aches Eyes: Denies: change in vision, blurry vision or photophobia ENMT: Reports: hoarseness; Denies: throat pain, enlarged tonsils, odynophagia or nasal congestion Card: Denies: chest pain, palpitations, irregular heart rhythm, edema, swelling of feet/ankles, lightheadedness, pre-syncope, dyspnea on exertion or orthopnea Resp: Denies: dyspnea, productive cough, non-productive cough, wheezing, stridor, pain on inspiration, change in phlegm color, hemoptysis or chest congestion GI: Denies: abdominal pain, nausea, vomiting, hematemesis, coffee ground emesis, dysphagia, heartburn, diarrhea, constipation, GI cramping, change in stool character, hematochezia or melena : Denies: flank pain, difficulty voiding, dysuria, urinary frequency, urinary urgency, urinary hesitancy or hematuria Musc: Denies: neck pain, back pain, extremity pain, joint swelling, joint warmth or deformity Neuro: Denies: headache(s), numbness in extremities, weakness in extremities, sensory changes, difficulty walking, frequent falls, dizziness, vertigo, behavioral changes, Slurred speech present or seizure-like activity Psych: Denies: anxiety, depression, suicidal ideation or homicidal ideation Endo: Denies: polyuria, polydipsia, tired all the time, cold intolerance or hot flashes Alfonso/Lymph: Denies: easy bruising or easy bleeding Medications/Allergies Home Medications Medication Instructions Recorded Confirmed Last Taken Type albuterol sulfate 2.5 mg/3 mL 2.5 mg inhalation Q4H PRN 06/10/22 12/11/22 09/16/22 History (0.083 %) solution for nebulization Shortness Of Breath hydroxyzine HCl 25 mg tablet 25 - 50 mg PO QID PRN Anxiety 06/10/22 12/11/22 11/21/22 History albuterol sulfate 90 mcg/actuation 2 inh inhalation Q4H PRN shortness 06/14/22 12/11/22 09/16/22 Rx aerosol inhaler of breath or wheezing #18 grams bumetanide 1 mg tablet 1 mg PO QAM #90 tabs 06/25/22 12/11/22 12/11/22 Rx nitroglycerin 0.4 mg sublingual 0.4 mg sublingual Q5M PRN chest 06/25/22 12/11/22 12/11/22 Rx tablet pain #30 tabs ondansetron 4 mg disintegrating 4 mg PO Q6H PRN nausea and 07/17/22 12/11/22 Unknown Rx tablet vomiting #14 tabs pantoprazole 40 mg tablet,delayed 40 mg PO BID 6 weeks #84 tabs 07/22/22 12/11/22 12/11/22 Rx release (Protonix) ticagrelor 90 mg tablet (Brilinta) 90 mg PO BID #180 tabs 08/05/22 12/11/22 12/11/22 Rx aripiprazole 30 mg tablet 30 mg PO DAILY 10/24/22 12/11/22 12/11/22 History atorvastatin 40 mg tablet 40 mg PO BEDTIME 10/24/22 12/11/22 12/10/22 History bupropion HCl 300 mg 24 hr tablet, 300 mg PO DAILY 10/24/22 12/11/22 12/11/22 History extended release fluoxetine 40 mg capsule 40 mg PO DAILY 10/24/22 12/11/22 12/11/22 History isosorbide mononitrate 30 mg 30 mg PO DAILY 10/24/22 12/11/22 12/11/22 History tablet,extended release 24 hr lisinopril 40 mg tablet 20 mg PO DAILY #30 tabs 10/27/22 12/11/22 12/11/22 Rx metformin 500 mg tablet,extended 500 mg PO DAILY 11/20/22 12/11/22 12/11/22 History release 24 hr sitagliptin phosphate 50 mg tablet 50 mg PO DAILY 11/20/22 12/11/22 12/11/22 History (Januvia) brexpiprazole 3 mg tablet (Rexulti) 3 mg PO DAILY 11/21/22 12/11/22 12/11/22 History hydrocodone 5 mg-acetaminophen 325 1 tab PO Q6H PRN Pain 11/21/22 12/11/22 Unknown History mg tablet lidocaine-prilocaine 2.5 %-2.5 % See Rx Instructions .Route .COMPLEX 11/21/22 12/11/22 12/11/22 History topical cream umeclidinium 62.5 mcg-vilanterol 1 inh inhalation DAILY 11/21/22 12/11/22 12/11/22 History 25 mcg/actuation powdr for inhalation (Anoro Ellipta) apixaban 5 mg (74 tabs) tablets in See Rx Instructions PO .COMPLEX 11/23/22 12/11/22 12/11/22 Rx a dose pack (Eliquis DVT-PE Treat #74 ea 30D Start) potassium chloride 10 mEq 10 meq PO DAILY 30 days #30 tabs 11/23/22 12/11/22 12/11/22 Rx tablet,extended release (Klor-Con) Diabetic Shoes with Custom inserts #1 ea 12/10/22 12/11/22 Unknown Rx meloxicam 15 mg tablet 15 mg PO DAILY #14 tabs 12/10/22 12/11/22 12/11/22 Rx amlodipine 5 mg tablet 5 mg PO DAILY 12/11/22 12/11/22 12/11/22 History cariprazine 1.5 mg capsule 1.5 mg PO DAILY 12/11/22 12/11/22 12/11/22 History (Vraylar) carvedilol 25 mg tablet 25 mg PO BID 12/11/22 12/11/22 12/11/22 History paroxetine mesylate(menop.sym) 7.5 7.5 mg PO BEDTIME 12/11/22 12/11/22 12/10/22 History mg capsule prazosin 1 mg capsule 1 mg PO BEDTIME 12/11/22 12/11/22 12/10/22 History Allergies Allergy/AdvReac Type Severity Reaction Status Date / Time ketorolac [From Toradol] Allergy ALGY-Hives Verified 12/11/22 15:42 prochlorperazine Allergy Unknown Verified 12/11/22 15:42 [From Compazine] PFSH Acute PFSH: Medical History Atherosclerotic heart disease of hughes coronary artery with unstable angina pectoris CAD (coronary artery disease) Cirrhosis COPD (chronic obstructive pulmonary disease) Hemochromatosis Hemochromatosis Hypertension Nocturnal hypoxia NSAID long-term use Smoking addiction Status post chemoradiation Vaginal tumors Surgical History H/O vaginal surgery Hx of appendectomy Hx of colonoscopy with polypectomy 10 yrs ago Family History Denies family history of Colon cancer Ovarian cancer Diabetes Heart disease Hypercholesteremia Breast cancer Hypertension Uterine cancer Thyroid disease Stroke Social History Smoking and tobacco status: former smoker Quit status (tobacco): quit date established Planned quit date: 05/27/22 Alcohol intake: never Substance/Drug Use: never Lives independently: Yes Household members: significant other Marital status: Single Vitals/I&O/Wt Last Vital Signs Temp 98.2 F 12/12/22 00:00 Pulse 69 12/12/22 00:00 Resp 22 H 12/12/22 00:00 BP 137/74 12/12/22 00:00 Pulse Ox 92 12/12/22 00:00 O2 Del Method Room Air 12/12/22 00:00 Weight last 48 hrs Weight 86.183 kg Physical Exam Narrative: General: No acute distress, AO x3 HEENT: PERRLA, pupils bilaterally equal and reactive, pallors not present Chest: Normal vesicular breath sounds, no added sounds, equal good air entry bilaterally CVS: S1-S2 regular, no murmurs, no tachycardia, no gallops, no rubs Abdomen: Soft, nontender, no organomegaly, bowel sounds present Neuro: No focal deficits, no facial deformity, AO x3, power 5/5 in all limbs Data 12/11/22 16:32 12/11/22 16:32 Other data: CT/CT angio chest PE protcl [id number] IMPRESSION: Motion degraded exam without convincing evidence of acute central, lobar, or segmental pulmonary emboli. Although thought unlikely, difficult to entirely exclude small subsegmental embolic phenomenon. ? COMPARISON: CR XR chest 1V portable [id number] 11/21/2022 10:16 AM FINDINGS: Tubes, catheters and devices: There is a right-sided chest port whose tip projects just below the right cavoatrial junction unchanged. Lungs: Lung volumes are mildly decreased. Lung botello are essentially clear without infiltrates or overt CHF. Pleural spaces: Unremarkable. No pleural effusion. No pneumothorax. Heart/Mediastinum: Heart is mildly enlarged. Bones/joints: Evidence of prior ACDF. There is electronic monitoring device projecting over the mid chest. XR/XR chest 1V portable [id number] IMPRESSION: Mild cardiomegaly. Lungs clear. No active disease. ?11/21/22 Echo CONCLUSIONS ?LV systolic function is normal with EF of 60 to 65%. ?Grade 1 diastolic dysfunction ?Mild mitral regurgitation ?Mild tricuspid regurgitation ?Compared to prior echocardiogram from 10/2022, no significant ?changes are seen quality control lab technician report 05/2022 Conclusions ? 1. 56-year-old white female with a history of coronary disease, status post myocardial infarction, status post multiple PCI's, presenting with prolonged episode of chest pain. EKG revealing diffuse nonspecific ST-T changes, appeared to be new. In view of the patient's clinical presentation and the ongoing symptoms, in order to further evaluate her coronary status, a cardiac catheterization was recommended. Patient underwent left heart catheterization with left and right coronary angiogram today. The findings are as follows.. ? 2. Patent stented segments of the proximal LAD, proximal, mid and distal RCA.? 60% narrowing at the ostium of the circumflex artery.? Minimal intimal irregularities in the other vessels.? Relatively small caliber RV branch of the right coronary artery was found to have a high-grade stenosis proximally. LVEDP of 25 mmHg. ? 3. Based on the angiogram findings, it does not be appropriate to consider IFR of the ostial circumflex lesion.? I discussed and reviewed the angiogram findings with Dr. Escalante.? Dr. Escalante concurred with this plan and took over further management of this patient at this point. . ? 4. Nonischemic FFR value 0.91 was obtained. A&P Assessment and plan (1) Chest pain: Patient with multiple cardiac risk factors, history of recurrent chest pain, persistent dyspnea and recurrent syncopal episodes presenting to the emergency room today with chief complaints of chest pain. EKG is without any acute ST-T wave changes. Troponin trend 10-10-9 Chest pain may be related to angina. Currently however patient states that she is not having significant relief with initiation of nitro. She does take isosorbide at home. She was noted to have a sinus pause on her Holter monitor today, however onset of symptoms does not correlate with sinus pause. Currently on telemetry monitoring Given multiple cardiac risk factors we will proceed with Lexiscan stress test in the morning Results of last coronary angiogram in May 2022 had shown patent stents in the proximal LAD and proximal mid and distal RCA. 60% narrowing at the ostium of the circumflex artery, high-grade stenosis in RV branch of right coronary artery. Continue home dose of Brilinta, Eliquis, atorvastatin, Bumex, isosorbide and lisinopril. Holding beta-blockers for now given sinus pauses. (2) Sinus pause: This is currently under evaluation by cardiology as outpatient. Patient has have a history of unexplained multiple syncopal episodes. Now she is noted to have sinus pauses, syncopal episodes do not appear to correlate with these. She did have noted V. tach episode during reported episode of dyspnea after which she had been started on metoprolol from cardiology, however it was discontinued on the most recent admission. Plan Continue home medications incl amlodipine, apipiprazole, statins, bupropion, fluozteine , hydroxyzine Attestations Medical Necessity Statement*: Less than 2 midnight stay is anticipated Coding Level of Care Code Acute Code for [facility] Fwd Diagnoses Chest pain R07.9 Sinus pause I45.5
[2022-12-12] MEDS: morphine 4 mg/mL SDV 1 mL 2 MG IVP (01:46)
[2022-12-12] MEDS: bumetanide 1 mg Tablet PO (04:59)
[2022-12-12] MEDS: HYDROcodone-acetaminophen 5-325 mg Tablet 1 TAB PO (05:58)
--- NOTE | 2022-12-12 06:30 | NMCV_ITS ---
NM marty perf SPECT r/s* [id number] Le Barnhart Age: 57 Gender: F : 1965 Exam Date: 12/12/2022 07:12 Ordering Phys: Pam Wiggins MD Technologist: TRAY Giraldo Exam Location: [facility] Indications: CHEST PAIN STRESS TEST Please see separate stress test report in [facility] for full findings IMAGE PROTOCOL Rest/Stress 1 Lexiscan Day Radiopharmaceutical Dose (mCi) Administration Site Administered by Rest: Tc-99m 10.8 IV Danny Ferrara, AIRPORT [employer]LECT[employer]IAN Sestamibi Stress:Tc-99m 32.8 IV Danny Ferrara, AIRPORT ELECT[employer]ICIAN Sestamibi Rest: 12-Dec-2022 60 Discovery 630 Stress: 12-Dec-2022 30 Discovery 630 0.4mg Lexiscan. Supine position only as patient was unable to lay prone. SPECT RESULTS Technical Quality: Excellent Raw Data Analysis: Normal Image Corrections: No attenuation or motion correction applied Summed Stress Score: 5 Summed Rest Score: 3 Summed Difference Score: 3 PERFUSION FINDINGS There is a small sized mostly fixed perfusion defect noted in the apical inferior and inferior gutierrez. This is consistent with small sized area of prior infarct with minimal pedro-infarct ischemia in the RCA territory. FUNCTIONAL RESULTS (calculated via Gated SPECT) Stress Image LV EF (%): 60 Stress EDV (mL):105 TID: 0.96 Stress ESV (mL):42 FUNCTIONAL FINDINGS: There is normal left ventricular systolic function. IMPRESSIONS 1. Small sized area of prior infarct with minimal pedro-infarct ischemia seen in the RCA territory 2. LV systolic function is normal David Escalante MD (Electronically Signed) Final Date: 12 December 2022 11:07 S
[2022-12-12 06:43] LABS: Glucose Point of Care 108 mg/dL (70-110)
[2022-12-12] MEDS: regadenoson 0.4 Mg/5 ml Syringe IVP (07:46)
--- NOTE | 2022-12-12 08:04 | PC.NURSE ---
Pt off unit for stress test
[2022-12-12] MEDS: ticagrelor 90 mg Tablet PO (09:22)
[2022-12-12] MEDS: isosorbide mononitrate ER 30 mg Tablet PO (09:22)
[2022-12-12] MEDS: buPROPion XL (24 HR) 300 mg Tablet PO (09:23)
[2022-12-12] MEDS: amlodipine 5 mg Tablet PO (09:23)
[2022-12-12] MEDS: pantoprazole DR 40 mg Tablet PO (09:23)
[2022-12-12] MEDS: apixaban 5 mg Tablet PO (09:23)
[2022-12-12] MEDS: fluoxetine 20 mg Capsule 40 MG PO (09:23)
[2022-12-12] MEDS: lisinopril 20 mg Tablet PO (09:23)
[2022-12-12] MEDS: ARIPiprazole 30 mg Tablet PO (09:32)
[2022-12-12] MEDS: metformin XR 500 MG Tablet PO (09:32)
--- NOTE | 2022-12-12 11:05 | P.DS_ITS ---
Discharge Providers Date of Admission: 12/11/22 21:55 Date of Discharge: December 12, 2022 Attending Provider at Admission: Pam Wiggins MD Attending Provider at Discharge: Nba Fitzgerald MD Primary Care Provider: Ryann Burk Diagnoses at Discharge Discharge Diagnosis (1) Chest pain: Status: Acute (2) Sinus pause: Status: Acute Reason for Visit Reason for Visit: chest pain, sob Hospital Course Hospital Course Please read detailed H&P done by admitting physician Brief Hospital course: Patient was admitted for management evaluation of chest discomfort and exertional dyspnea. CTA chest rule out PE and aortic dissection no signs of pneumonia. Patient has been afebrile requiring 2 L, patient has recently quit smoking about 2 weeks ago, stress test was requested, however her coronary angiogram was done this year (May 2022 had shown patent stents in the proximal LAD and proximal mid and distal RCA.? 60% narrowing at the ostium of the circumflex artery, high-grade stenosis in RV branch of right coronary artery.) Patient most likely is experiencing exertional symptoms related to her underlying COPD, she takes inhalers at home, she will resume her Eliquis for her recent PE along with antiplatelet therapy, she already is following up with Dr. Drake for her sinus pause she has remained in sinus rhythm with heart rate fluctuated between 60-80 with stable hemodynamics. Physical Exam Narrative: On 2 L Compensated underlying CHF No active wheezing S1, S2 Abdomen soft Patient is pleasant and cooperative Nonfocal neuro exam Discharge Data Studies Completed and Pending Completed Studies During Hospitalization Category Date Time Status CT angio chest PE protcl [id number] Stat Cat Scan 12/11/22 18:54 Completed Cardiac Stress Test MIBI [Sestamibi Stress Test Request Exams 12/12/22 01:27 Draft ] Routine XR chest 1V portable [id number] Urgent Exams 12/11/22 16:09 Completed Pending at discharge Category Date Time Status NM marty perf SPECT r/s* [id number] Routine Nuc Med 12/12/22 06:30 Taken Radiology Impressions Chest X-Ray 12/11/22 16:09 IMPRESSION: Mild cardiomegaly. Lungs clear. No active disease. Chest CTA 12/11/22 18:54 IMPRESSION: Motion degraded exam without convincing evidence of acute central, lobar, or segmental pulmonary emboli. Although thought unlikely, difficult to entirely exclude small subsegmental embolic phenomenon. Laboratory Results WBC 6.81 10^3/uL (3.29-11.43) 12/11/22 16:32 RBC 3.63 10^6/uL (3.85-5.65) L 12/11/22 16:32 Hgb 12.70 g/dL (11.27-16.99) 12/11/22 16:32 Hct 37.4 % (36-47) 12/11/22 16:32 MCV 103.0 fl (85-98) H 12/11/22 16:32 MCH 35.0 pg (27-33) H 12/11/22 16:32 MCHC 34.0 g/dL (30-55) 12/11/22 16:32 RDW 14.7 % (12.1-15.1) 12/11/22 16:32 Plt Count 179 10^3/cmm (157-399) 12/11/22 16:32 MPV 9.2 fL (7.4-10.4) 12/11/22 16:32 Neut % (Auto) 69.1 % 12/11/22 16:32 Lymph % (Auto) 16.6 % 12/11/22 16:32 [place] % (Auto) 10.1 % 12/11/22 16:32 Eos % (Auto) 2.2 % 12/11/22 16:32 Baso % (Auto) 0.4 % 12/11/22 16:32 Neut # (Auto) 4.70 10^3/uL (1.8-7.7) 12/11/22 16:32 Lymph # (Auto) 1.1 10^3/uL (0.8-4.8) 12/11/22 16:32 [place] # (Auto) 0.7 10^3/uL (0.2-0.9) 12/11/22 16:32 Eos # (Auto) 0.2 10^3/uL (0.0-0.8) 12/11/22 16:32 Baso # (Auto) 0.0 10^3/uL (0.0-0.1) 12/11/22 16:32 Nucleated RBC % (auto) 0 % 12/11/22 16:32 Nucleated RBCs # 0.0 /100WBC 12/11/22 16:32 Sodium 146 mmol/L (136-145) H 12/11/22 16:32 Potassium 3.8 mmol/L (3.5-5.1) 12/11/22 16:32 Chloride 110 mmol/L (98-107) H 12/11/22 16:32 Carbon Dioxide 23 mmol/L (22-29) 12/11/22 16:32 Anion Gap 16.8 (5-19) 12/11/22 16:32 BUN 22 mg/dL (6-20) H 12/11/22 16:32 Creatinine 1.0 mg/dL (0.5-0.9) H 12/11/22 16:32 GFR Calculation 57.1 mL/min (90-130) L 12/11/22 16:32 Glucose 107 mg/dL (65-115) 12/11/22 16:32 POC Glucose 108 mg/dL (70-110) 12/12/22 06:35 Calculated Osmolality 306 mOsm/kg (285-295) H 12/11/22 16:32 Calcium 9.1 mg/dL (8.5-10.5) 12/11/22 16:32 Total Bilirubin 0.3 mg/dL (0.15-1.2) 12/11/22 16:32 AST 13 U/L (0-32) 12/11/22 16:32 ALT 16 U/L (0-33) 12/11/22 16:32 Alkaline Phosphatase 104 U/L (35-105) 12/11/22 16:32 Troponin T Baseline 10 ng/L (0-10) 12/11/22 16:32 Troponin T 120 Minute 10.13 ng/L (0-10) H 12/11/22 20:09 Delta Troponin T 0.13 ABS# (0-10) 12/11/22 20:09 Troponin T Hi Sens 6Hr 9.86 ng/L (0-10) 12/11/22 22:33 Troponin T Hi Sens 6Hr Delta -0.14 ng/L (0-12) L 12/11/22 22:33 NT-Pro-B Natriuret Pep 239 pg/mL (0-125) H 12/11/22 16:32 Total Protein 6.4 g/dL (6.6-8.7) L 12/11/22 16:32 Albumin 3.9 g/dL (3.5-5.2) 12/11/22 16:32 Globulin 2.5 g/dL (1.3-4.6) 12/11/22 16:32 Vitals Last Vital Signs Temp 97.8 F 12/12/22 04:00 Pulse 70 12/12/22 09:01 Resp 16 12/12/22 09:01 BP 151/84 12/12/22 08:16 Pulse Ox 98 12/12/22 09:01 O2 Del Method Nasal Cannula 12/12/22 09:01 O2 Flow Rate 1.5 12/12/22 09:01 Discharge Plan Discharge Patient Disposition: Home Condition: Stable Prescriptions: Continued nitroglycerin 0.4 mg tablet, sublingual 0.4 mg sublingual Q5M PRN (Reason: chest pain) Qty: 30 2RF Rx Instructions: do not exceed 3 doses per episode bumetanide 1 mg tablet 1 mg PO QAM Qty: 90 2RF Rx Instructions: increase to 2mg daily for 3 days then reduce to 1mg daily. Take with potassium metformin 500 mg tablet extended release 24 hr 500 mg PO DAILY Januvia 50 mg tablet 50 mg PO DAILY (DME) Diabetic Shoes with Custom inserts See Rx Instructions .Route .MEDSUPPLY Qty: 1 0RF Rx Instructions: As directed by Cookie Brewster pantoprazole [Protonix] 40 mg tablet,delayed release (DR/EC) 40 mg PO BID 42 Days Qty: 84 1RF Brilinta 90 mg tablet 90 mg PO BID Qty: 180 2RF Hold Instructions: Resume on 09/20/22. albuterol sulfate 90 mcg/actuation HFA aerosol inhaler 2 inh INHALATION Q4H PRN (Reason: shortness of breath or wheezing) Qty: 18 0RF ondansetron 4 mg tablet,disintegrating 4 mg PO Q6H PRN (Reason: nausea and vomiting) Qty: 14 0RF hydrocodone-acetaminophen 5-325 mg tablet 1 tab PO Q6H PRN (Reason: Pain) Anoro Ellipta 62.5-25 mcg/actuation blister with device 1 inh INHALATION DAILY Rexulti 3 mg tablet 3 mg PO DAILY lidocaine-prilocaine 2.5-2.5 % cream See Rx Instructions .ROUTE .COMPLEX Rx Instructions: 1 applic topically ;Apply to port 30-45 minutes prior to access Eliquis DVT-PE Treat 30D Start 5 mg (74 tabs) tablets,dose pack See Rx Instructions .ROUTE .COMPLEX Qty: 74 0RF Rx Instructions: orally per package directions potassium chloride [Klor-Con 10] 10 mEq tablet extended release 10 meq PO DAILY 30 Days Qty: 30 0RF albuterol sulfate 2.5 mg /3 mL (0.083 %) solution for nebulization 2.5 mg inhalation Q4H PRN (Reason: Shortness Of Breath) hydroxyzine HCl 25 mg tablet 25 - 50 mg PO QID PRN (Reason: Anxiety) fluoxetine 40 mg capsule 40 mg PO DAILY atorvastatin 40 mg tablet 40 mg PO BEDTIME isosorbide mononitrate 30 mg tablet extended release 24 hr 30 mg PO DAILY Hold Instructions: Resume on 11/03/22. aripiprazole 30 mg tablet 30 mg PO DAILY bupropion HCl 300 mg tablet extended release 24 hr 300 mg PO DAILY lisinopril 40 mg tablet 20 mg PO DAILY Qty: 30 0RF carvedilol 25 mg tablet 25 mg PO BID prazosin 1 mg capsule 1 mg PO BEDTIME amlodipine 5 mg tablet 5 mg PO DAILY paroxetine mesylate(menop.sym) 7.5 mg capsule 7.5 mg PO BEDTIME Vraylar 1.5 mg capsule 1.5 mg PO DAILY Discontinued meloxicam 15 mg tablet 15 mg PO DAILY Qty: 14 0RF Discharge Orders: Discharge Order (Routine); Ordered 12/12/22 Ordered By: Nba Fitzgerald Referrals: Ryann Burk [Primary Care Provider] - Discharge Diet: Cardiac and Diabetic Discharge Activity: Increase activity as tolerated Patient Instructions: Heart Failure (DC), CHF Stoplight, Opioid Safety Discharge Attestations Time Spent in Discharge Care*: greater than 30 min Status at Discharge: Cognitive status at discharge: cognitively intact , Behavioral status at discharge: can be uncooperative , Quality Metrics Clinical Quality Measures [ No reported AMI, CVA or VTE this stay] Coding Level of Care Code Acute Code for [facility] Fwd Diagnoses Chest pain R07.9 Sinus pause I45.5
[2022-12-12 11:26] LABS: Glucose Point of Care 147 mg/dL (70-110)
--- NOTE | 2022-12-12 12:52 | PC.NURSE ---
Discharge Note Patient discharged to home via POV accompanied by family. Discharge instructions reviewed with patient and/or office machines sales representative. Mobile pharmacy medications and/or prescriptions provided. Belongings/home medications returned.
== END 2022-12-12 12:53 | disposition home or self-care (01) ==
LOC: ER 21:55 → CSU 22:14
PROVIDERS: Physician Assistant; Admitting Provider Student in an Organized Health Care Education/Training Program; Emergency Provider Family Medicine; PCP Family Medicine; Visit Provider Internal Medicine
DX: R07.9 Chest pain, unspecified (principal); I45.5 Other specified heart block; Z87.891 Personal history of nicotine dependence; Z85.89 Personal history of malignant neoplasm of other organs and systems; Z85.3 Personal history of malignant neoplasm of breast; Z86.711 Personal history of pulmonary embolism; Z79.01 Long term (current) use of anticoagulants; G47.33 Obstructive sleep apnea (adult) (pediatric); Z79.84 Long term (current) use of oral hypoglycemic drugs
CPT/HCPCS: 36415; 36416; 71045; 71275; 78452; 80053; 82962; 83880; 84484; 85025; 93005; 96374; 96375; 96376; 99285; A9500; G0378; J2270; J2785; Q9967

== ENCOUNTER 2022-12-29 09:30 | Oncology outpatient (recurring) (ONCR) | payer MEDICAID, SELFPAY ==
[2022-12-22 07:55] VITALS: BP 137/85; PULSE 66; RESP 16; TEMP 36.7; O2SAT 93
[2022-12-22 08:07] LABS: Basophils % 0.8 %; Eosinophils # 0.1 10^3/uL (0.0-0.8); Hematocrit 37.6 % (36-47); Lymphocytes % 19.3 %; Mean Corpuscular Hemoglobin 35.2 pg (27-33); Mean Corpuscular Volume 103.3 fl (85-98); Mean Platelet Volume 8.8 fL (7.4-10.4); Monocytes # 0.4 10^3/uL (0.2-0.9); Neutrophils # 3.38 10^3/uL (1.8-7.7); Neutrophils % 67.3 %; Nucleated Red Blood Cells % 0 %; Platelet Count 145 10^3/cmm (157-399); Red Blood Count 3.64 10^6/uL (3.85-5.65); Red Cell Distribution Width 14.5 % (12.1-15.1); White Blood Count 5.02 10^3/uL (3.29-11.43)
[2022-12-22 08:27] LABS: Alanine Aminotransferase 25 U/L (0-33); Albumin Level 3.7 g/dL (3.5-5.2); Alkaline Phosphatase 114 U/L (35-105); Anion Gap 11.7 (5-19); Aspartate Amino Transferase 16 U/L (0-32); Blood Urea Nitrogen 16 mg/dL (6-20); Calcium 8.9 mg/dL (8.5-10.5); Carbon Dioxide 28 mmol/L (22-29); Chloride 106 mmol/L (98-107); Ferritin 159 ng/mL (15-150); Globulin 3.2 g/dL (1.3-4.6); Glomerular Filtration Rate 86.2 mL/min (90-130); Glucose 127 mg/dL (65-115); Osmolality Calculated 297 mOsm/kg (285-295); Potassium 3.7 mmol/L (3.5-5.1); Sodium 142 mmol/L (136-145); Total Bilirubin 0.3 mg/dL (0.15-1.2); Total Protein 6.9 g/dL (6.6-8.7)
[2022-12-29 08:15] VITALS: BP 128/68; PULSE 65; RESP 18; TEMP 36.7; O2SAT 95
[2022-12-29 08:55] LABS: Basophils % 0.6 %; Eosinophils # 0.1 10^3/uL (0.0-0.8); Eosinophils % 2.2 %; Hematocrit 37.3 % (36-47); Lymphocytes % 20.4 %; Mean Corpuscular HGB Conc 33.2 g/dL (30-55); Mean Corpuscular Hemoglobin 34.7 pg (27-33); Mean Corpuscular Volume 104.5 fl (85-98); Mean Platelet Volume 9.1 fL (7.4-10.4); Monocytes # 0.4 10^3/uL (0.2-0.9); Monocytes % 8.6 %; Neutrophils # 3.29 10^3/uL (1.8-7.7); Neutrophils % 67.4 %; Nucleated Red Blood Cells % 0 %; Platelet Count 138 10^3/cmm (157-399); Red Blood Count 3.57 10^6/uL (3.85-5.65); Red Cell Distribution Width 14.6 % (12.1-15.1); White Blood Count 4.89 10^3/uL (3.29-11.43)
[2022-12-29 09:35] LABS: Alanine Aminotransferase 19 U/L (0-33); Albumin Level 3.7 g/dL (3.5-5.2); Alkaline Phosphatase 101 U/L (35-105); Anion Gap 8.6 (5-19); Aspartate Amino Transferase 15 U/L (0-32); Blood Urea Nitrogen 13 mg/dL (6-20); Carbon Dioxide 29 mmol/L (22-29); Chloride 104 mmol/L (98-107); Ferritin 123 ng/mL (15-150); Globulin 3.1 g/dL (1.3-4.6); Glomerular Filtration Rate 86.2 mL/min (90-130); Glucose 116 mg/dL (65-115); Osmolality Calculated 287 mOsm/kg (285-295); Potassium 3.6 mmol/L (3.5-5.1); Sodium 138 mmol/L (136-145); Total Bilirubin 0.3 mg/dL (0.15-1.2); Total Protein 6.8 g/dL (6.6-8.7)
[2022-12-29 09:43] VITALS: BP 131/75; PULSE 82; RESP 18; TEMP 36.6; O2SAT 92
--- NOTE | 2022-12-29 10:51 | PC.NURSE ---
Accessed patient's port on the right side of her chest for therapeutic phlebotomy.
== END 2023-01-20 23:59 | disposition home or self-care (01) ==
PROVIDERS: Nurse Practitioner Family; PCP Family Medicine; Visit Provider Internal Medicine Medical Oncology
DX: E83.119 Hemochromatosis, unspecified (principal)
CPT/HCPCS: 36591; 80053; 82728; 85025; 99195; 99214; J1642

== ENCOUNTER → 2022-12-31 15:02 | Outpatient (BNVA) | payer MEDICAID, SELFPAY | PROVIDERS: PCP Family Medicine; Visit Provider Internal Medicine Cardiovascular Disease | DX: I49.5 Sick sinus syndrome (principal); I26.99 Other pulmonary embolism without acute cor pulmonale; I25.110 Atherosclerotic heart disease of native coronary artery with unstable angina pectoris; I11.0 Hypertensive heart disease with heart failure; I50.30 Unspecified diastolic (congestive) heart failure; E78.5 Hyperlipidemia, unspecified; G47.34 Idiopathic sleep related nonobstructive alveolar hypoventilation; F17.200 Nicotine dependence, unspecified, uncomplicated; E83.119 Hemochromatosis, unspecified | CPT/HCPCS: 99214 ==

== ENCOUNTER → 2023-01-21 14:25 | Outpatient (BNVA) | payer MEDICAID, SELFPAY | PROVIDERS: PCP Family Medicine; Visit Provider Surgery | DX: Z95.828 Presence of other vascular implants and grafts (principal); I87.8 Other specified disorders of veins | CPT/HCPCS: 99213 ==

== ENCOUNTER 2023-01-26 07:25 | Day surgery (SDC) | payer MEDICAID, SELFPAY ==
[2023-01-26 07:41] VITALS: BP 148/86; PULSE 90; RESP 17; TEMP 36.4; O2SAT 97; BMI 34.0
[2023-01-26] MEDS: sodium chloride 0.9% 1,000 ML 30 ML IV (08:19)
[2023-01-26] MEDS: HYDROmorphone 1 mg/mL INJ 1 mL 0.5 MG IVP (08:27)
--- NOTE | 2023-01-26 08:52 | W.PM.OPSUD ---
Surgery/Procedure H&P Update DATE OF PROCEDURE: January 26, 2023 DATE H&P PERFORMED: 01/21/23 H&P UPDATE INFORMATION: I have reviewed H&P completed within last 30 days, I have examined patient prior to procedure and No changes to prior documentation PLANNED PROCEDURE: Operation Date: 01/26/23 09:30 Proposed Procedures p [id number] port removal Z95.828,I87.8(Not Applicable) - Curly Ortiz DO
[2023-01-26 08:53] LABS: Glucose Point of Care 92 mg/dL (70-110)
[2023-01-26] MEDS: midazolam 1 mg/mL INJ 2 mL 2 MG IVP (09:15)
[2023-01-26] MEDS: ceFAZolin 2,000 MG in sodium chloride 0.9% (plus) 50 ML 100 MG IV (09:20)
--- NOTE | 2023-01-26 09:22 | ANES.PREANE2 ---
Pre-Anesthetic Assessment Height/Weight: Height 1.63 m Weight 89.811 kg Temp Pulse Resp BP Pulse Ox O2 Del Method 97.5 F L 90 17 148/86 97 Room Air 01/26/23 07:41 01/26/23 07:41 01/26/23 07:41 01/26/23 07:41 01/26/23 07:41 01/26/23 07:41 Operation Date: 01/26/23 09:30 Proposed Procedures p [id number] port removal Z95.828,I87.8(Not Applicable) - Curly Ortiz DO Familial anesthetic complications: none Was Beta Steve taken within 24 hours: N/A Was Clonidine taken within 24 hours: N/A Last intake: Intake Last Liquid Date 01/25/23 Last Liquid Time 21:00 Last Solid Date 01/25/23 Last Solid Time 21:00 Social Tobacco and No alcohol Exam alert, oriented x 3 and regular rate & rhythm Airway Submandibular: within normal limits Cervical ROM: within normal limits Mallampati: Class II Pulmonary Chronic Obstructive Pulmonary Disease CV/HEM Deep Vein Thrombosis (PE) and Hypertension Hepatic Cirrhosis GI Gastroesophageal Reflux Disease Metabolic Diabetes Mellitus and Hyperlipidemia Neuropsych Anxiety and Depression Anesthetic Plan ASA status: 3 Anesthesia: Choice Medications/Allergies Home Medications Medication Instructions Recorded Confirmed Last Taken Type albuterol sulfate 2.5 mg/3 mL 2.5 mg inhalation Q4H PRN 06/10/22 01/23/23 01/16/23 History (0.083 %) solution for nebulization Shortness Of Breath albuterol sulfate 90 mcg/actuation 2 inh inhalation Q4H PRN shortness 06/14/22 01/23/23 01/21/23 Rx aerosol inhaler of breath or wheezing #18 grams bumetanide 1 mg tablet 1 mg PO QAM #90 tabs 06/25/22 01/23/23 01/23/23 08:00 Rx nitroglycerin 0.4 mg sublingual 0.4 mg sublingual Q5M PRN chest 06/25/22 01/23/23 12/11/22 Rx tablet pain #30 tabs ondansetron 4 mg disintegrating 4 mg PO Q6H PRN nausea and 07/17/22 01/23/23 Unknown Rx tablet vomiting #14 tabs pantoprazole 40 mg tablet,delayed 40 mg PO BID 6 weeks #84 tabs 07/22/22 01/23/23 01/23/23 08:00 Rx release (Protonix) ticagrelor 90 mg tablet (Brilinta) 90 mg PO BID #180 tabs 08/05/22 01/23/23 01/16/23 Rx atorvastatin 40 mg tablet 40 mg PO BEDTIME 10/24/22 01/26/23 01/25/23 History bupropion HCl 300 mg 24 hr tablet, 300 mg PO DAILY 10/24/22 01/26/23 01/25/23 History extended release fluoxetine 40 mg capsule 40 mg PO DAILY 10/24/22 01/23/23 01/23/23 History metformin 500 mg tablet,extended 500 mg PO DAILY 11/20/22 01/23/23 01/23/23 08:00 History release 24 hr sitagliptin phosphate 50 mg tablet 50 mg PO DAILY 11/20/22 01/26/23 01/25/23 History (Januvia) brexpiprazole 3 mg tablet (Rexulti) 3 mg PO DAILY 11/21/22 01/23/23 01/23/23 08:00 History lidocaine-prilocaine 2.5 %-2.5 % See Rx Instructions .Route .COMPLEX 11/21/22 01/23/23 12/11/22 History topical cream umeclidinium 62.5 mcg-vilanterol 1 inh inhalation DAILY 11/21/22 01/23/23 01/16/23 History 25 mcg/actuation powdr for inhalation (Anoro Ellipta) apixaban 5 mg (74 tabs) tablets in See Rx Instructions PO .COMPLEX 11/23/22 01/23/23 01/16/23 Rx a dose pack (Eliquis DVT-PE Treat #74 ea 30D Start) Diabetic Shoes with Custom inserts #1 ea 12/10/22 01/23/23 Unknown Rx amlodipine 5 mg tablet 5 mg PO DAILY 12/11/22 01/26/23 01/25/23 History cariprazine 1.5 mg capsule 1.5 mg PO DAILY 12/11/22 01/23/23 01/23/23 08:00 History (Vraylar) Allergies Allergy/AdvReac Type Severity Reaction Status Date / Time ketorolac [From Toradol] Allergy ALGY-Hives Verified 01/23/23 10:56 prochlorperazine Allergy Unknown Verified 01/23/23 10:56 [From Compazine] Current Medications Generic Name Dose Route Start Last Admin Trade Name Freq PRN Reason Stop Dose Admin Sodium Chloride 1,000 mls @ 30 mls/hr 01/26/23 07:30 01/26/23 08:19 Sodium Chloride 0.9% IV 01/27/23 07:29 30 mls/hr .Q24H MANOLO Administration Midazolam HCl 2 mg 01/26/23 07:29 01/26/23 09:15 Midazolam 1 Mg/Ml Inj 2 Ml IVP 1 mg Q5M PRN Administration Preop Anxiety PFSH Anesthesia Medical History Atherosclerotic heart disease of [place] coronary artery with unstable angina pectoris CAD (coronary artery disease) Chest pain Cirrhosis COPD (chronic obstructive pulmonary disease) Hemochromatosis Hemochromatosis Hypertension Nocturnal hypoxia NSAID long-term use Sinus pause Smoking addiction Status post chemoradiation Vaginal tumors Surgical History H/O vaginal surgery Hx of appendectomy Hx of colonoscopy with polypectomy 10 yrs ago Family History Denies family history of Colon cancer Ovarian cancer Diabetes Heart disease Hypercholesteremia Breast cancer Hypertension Uterine cancer Thyroid disease Stroke Social History Smoking and tobacco/nicotine status: former use of tobacco/nicotine Quit status (tobacco/nicotine): has quit using Year quit tobacco: July 2022 Former quit date comment: smoked 47 years Alcohol intake: never Substance/Drug Use: never Lives independently: Yes Household members: significant other Marital status: Single Data Anesthesia Cardiac Studies: Echocardiogram 11/21/22 Sestamibi Stress Test (Cardiology) 12/12/22 Cardiac Event Monitor 12/03/22 Holter Monitor 09/29/22
[2023-01-26] MEDS: lidocaine-epi 2% 20 mL INJ 10 ML INJECTION (09:34)
[2023-01-26 09:47] VITALS: BP 129/80; PULSE 91; RESP 22; TEMP 36.6; O2SAT 97
[2023-01-26 09:52] VITALS: BP 138/81; PULSE 95; RESP 22; O2SAT 96
--- NOTE | 2023-01-26 09:52 | PM.OP ---
Operative Report Date of procedure: January 26, 2023 Pre-op diagnosis: Port-A-Cath in place-desires removal Post-op diagnosis: other (Status post removal of Mediport) Procedure done: Mediport removal Implants: None Specimens removed/disposition: Mediport-not sent to pathology Surgeon: Curly Ortiz DO Anesthesia: MAC Estimated blood loss (mL): 5 Complications: none apparent Brief History: This very pleasant 57-year-old female that has a Mediport for blood draws and infusions related to her hemochromatosis. The port has not been used since it was placed and she would like it removed. The risk and benefits were explained and documented. Procedure: Patient was taken to the operating room and her right chest was prepped and draped in a sterile manner. 1% lidocaine with epinephrine was infiltrated around the MediPort and catheter. Using a 15 blade the previous incision was opened, the subcutaneous tissue was divided using electrocautery and MediPort along the catheter was dissected free from the surrounding subcutaneous tissue and removed entirely. The wound was irrigated with saline, hemostasis ensured with electrocautery. A figure of 8 stitch was placed in the catheter tunnel with 3-0 Vicryl. Dermis was approximated with 3-0 Vicryl suture in a subcuticular interrupted fashion. Skin was closed with Dermabond. The patient was transferred to the recovery room in stable condition.
[2023-01-26 09:57] VITALS: BP 120/66; PULSE 73; RESP 20; TEMP 36.7; O2SAT 95
[2023-01-26 10:05] VITALS: BP 118/60; PULSE 85; RESP 20; O2SAT 95
[2023-01-26 10:11] VITALS: BP 117/77; PULSE 84; RESP 16; TEMP 36.5; O2SAT 94
[2023-01-26] MEDS: HYDROcodone-acetaminophen 10-325 mg Tablet 1 TAB PO (10:16)
--- NOTE | 2023-01-26 10:39 | SUR.PHASEII ---
[facility] called and stated she would call pt and has to get approval due to pt picking up Kahlil disp 60 on January 09,pt notified pt of this and verbalized understanding
--- NOTE | 2023-01-26 16:11 | ANE.PACU2 ---
Inpatient post-anesthesia follow up: Airway intact: Yes Vital signs: Temperature 97.7 F Pulse Rate 84 Respiratory Rate 16 Blood Pressure 117/77 Pulse Oximetry 94 Oxygen Delivery Me thod Nasal Cannula Oxygen Flow Rate 2 Fraction of Inspir ed Oxygen 2.0 Hydration adequate: Yes Nausea and vomiting: No Pain level: 2 Mental status: Baseline
== END 2023-01-26 10:35 | disposition home or self-care (01) ==
PROVIDERS: PCP Family Medicine; Visit Provider Surgery
PROC: (CPT 36589; principal; 2023-01-26 09:20)
DX: Z45.2 Encounter for adjustment and management of vascular access device (principal); J44.9 Chronic obstructive pulmonary disease, unspecified; E11.9 Type 2 diabetes mellitus without complications; E78.5 Hyperlipidemia, unspecified; Z86.718 Personal history of other venous thrombosis and embolism; Z86.711 Personal history of pulmonary embolism; I10 Essential (primary) hypertension; K21.9 Gastro-esophageal reflux disease without esophagitis; Z79.84 Long term (current) use of oral hypoglycemic drugs; Z87.891 Personal history of nicotine dependence
CPT/HCPCS: 36590; 36416; 82962; J0690; J1170; J2250; J2704; J7030

== ENCOUNTER 2023-02-07 19:25 | Inpatient (IN) | payer MEDICAID, SELFPAY ==
[2023-02-07] VITALS (10 sets, daily range): BP systolic 138–180; BP diastolic 96–108; PULSE 77–99; RESP 16–28; TEMP 36.8; O2SAT 95–98; BMI 35.6
--- NOTE | 2023-02-07 19:38 | ECG_ITS ---
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 Measurements Intervals [place] Rate: 90 P: 42 [place]: 177 QRS: 71 QRSD: 82 T: 4 QT: 356 QTc: 436 Interpretive Statements SINUS RHYTHM WITH OCCASIONAL SUPRAVENTRICULAR PREMATURE COMPLEXES NONSPECIFIC ST & T-WAVE ABNORMALITY Compared to ECG 12/11/2022 18:11:09 No significant changes Electronically Signed On 02-08-2023 22:01:27 QUALITY HEAD by Ivis Drake M.D. [email or web address]/[id number]
--- NOTE | 2023-02-07 19:51 | ED_ITS ---
HPI - Chest Pain General: Chief Complaint: Chest Pain Stated Complaint: cp Time Seen by Provider: 02/07/23 19:51 History of Present Illness: 57-year-old female with an extensive coronary artery disease history and 6 cardiac stents presents to the emergency department with complaints of substernal chest pain that radiates to her back and her right arm. She was recently seen on 12/12/2022 and received a stress test and was determined to high-grade stenosis in the RV branch of the right coronary artery. Patient states that earlier today while she was sitting she started having 9 out of 10 chest pain and increased shortness of breath. She states she took a sublingual nitro with relief for approximately 30 minutes and the chest pain returned. She states she took another sublingual nitro and the chest pain resolved for approximately 30 more minutes and then her family encouraged her to come to the emergency department for additional evaluation. 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 pectoris CAD (coronary artery disease) Chest pain Cirrhosis COPD (chronic obstructive pulmonary disease) Hemochromatosis Hemochromatosis Hypertension Nocturnal hypoxia NSAID long-term use Sinus pause Smoking addiction Status post chemoradiation Vaginal tumors Surgical History H/O vaginal surgery Hx of appendectomy Hx of colonoscopy with polypectomy 10 yrs ago Family History Denies family history of Colon cancer Ovarian cancer Diabetes Heart disease Hypercholesteremia Breast cancer Hypertension Uterine cancer Thyroid disease Stroke Social History Smoking and tobacco/nicotine status: former use of tobacco/nicotine Quit status (tobacco/nicotine): has quit using Year quit tobacco: July 2022 Former quit date comment: smoked 47 years Alcohol intake: never Substance/Drug Use: never Lives independently: Yes Household members: significant other Marital status: Single Physical Exam Narrative: EXAM NARRATIVE: Constitutional: the patient appears well nourished and with normal development. Vital signs reviewed as documented. HENMT: Normocephalic, atraumatic. External ears with normal appearance without drainage. Nose without drainage, normal appearance. Mucus membranes moist. Neck is supple, No jugular venous distension, trachea is midline, no appreciable carotid bruits. No lymphadenopathy. No meningeal signs. Flexion, extension and lateral rotation is without pain. Eyes: Pupils are equal, round, reactive to light and accommodation. No scleral icterus. Extra-ocular movement are intact. Thorax is symmetrical and with equal rise and fall with respirations. Resp: Lungs are clear to auscultation. No wheezes, rales, crackles or ronchi at pesent. Cardio: Regular rate and rhythm. Positive S1, S2. No appreciable murmurs, rubs or gallops. GI: Abdominal exam reveals normal bowel sounds to all quadrants. No org anomegaly. No obvious palpable masses noted. No hepatomegally appreciated. Soft, nontender to palpation. Extremity: Extremities are non-edematous and both femoral and pedal pulses are 2+ and equal bilaterally. Moves all extremities well, sensation in all extremities. Neuro: Alert and oriented x4, person, place, time and situation. Cranial nerves II through XII are grossly intact, there is no focal neurological deficits that I can appreciate at present. Motor strength in the upper and lower extremities are equal and bilateral 5/5. Psych: Cooperative, calm, normal thought process, appropriate judgment. Skin: No lesions, rashes. No gross abnormalities noted. Back: Symmetrical, no obvious deformity, No CVA tenderness Course Vital Signs: Vital signs: Vital Signs Temperature 98.2 F 02/07/23 19:32 Pulse Rate 86 02/07/23 20:05 Respiratory Rate 20 H 02/07/23 19:32 Blood Pressure 180/102 02/07/23 20:05 Pulse Oximetry 97 02/07/23 19:32 Oxygen Delivery Me thod Room Air 02/07/23 19:32 MDM - Chest Pain Medical Decision Making Physical exam completed and documented, laboratory evaluation to include a CBC, CMP cardiac enzymes EKG and chest x-ray for evaluation for her chest pain. We will provide an inch Nitropaste as well as cardiac dose aspirin. Differential Diagnosis Likely acute myocardial infarction Medical Records I reviewed the patient's medical records. Lab Data I reviewed the patient's lab results. 02/07/23 20:03 02/07/23 20:03 Radiology Impressions Chest X-Ray 02/07/23 19:51 IMPRESSION: No acute findings. Laboratory Results WBC 4.81 10^3/uL (3.29-11.43) 02/07/23 20: RBC 3.87 10^6/uL (3.85-5.65) 02/07/23 20:03 Hgb 13.10 g/dL (11.27-16.99) 02/07/23 20:03 Hct 40.4 % (36-47) 02/07/23 20: MCV 104.4 fl (85-98) H 02/07/23 20:03 MCH 33.9 pg (27-33) H 02/07/23 20: MCHC 32.4 g/dL (30-55) 02/07/23 20: RDW 14.6 % (12.1-15.1) 02/07/23 20:03 Plt Count 175 10^3/cmm (157-399) 02/07/23 20:03 MPV 9.5 fL (7.4-10.4) 02/07/23 20:03 Neut % (Auto) 56.9 % 02/07/23 20:03 Lymph % (Auto) 27.9 % 02/07/23 20:03 [place] % (Auto) 12.3 % 02/07/23 20:03 Eos % (Auto) 1.7 % 02/07/23 20:03 Baso % (Auto) 0.4 % 02/07/23 20:03 Neut # (Auto) 2.74 10^3/uL (1.8-7.7) 02/07/23 20:03 Lymph # (Auto) 1.3 10^3/uL (0.8-4.8) 02/07/23 20:03 [place] # (Auto) 0.6 10^3/uL (0.2-0.9) 02/07/23 20:03 Eos # (Auto) 0.1 10^3/uL (0.0-0.8) 02/07/23 20:03 Baso # (Auto) 0.0 10^3/uL (0.0-0.1) 02/07/23 20:03 Nucleated RBC % (auto) 0 % 02/07/23 20: Nucleated RBCs # 0.0 /100WBC 02/07/23 20:03 PT 14.40 SECONDS (12.1-14.9) 02/07/23 20:03 INR 1.08 (0.8-1.2) 02/07/23 20:03 APTT 30.8 SECONDS (23.9-36.7) 02/07/23 20:03 Sodium 144 mmol/L (136-145) 02/07/23 20:03 Potassium 3.5 mmol/L (3.5-5.1) 02/07/23 20:03 Chloride 107 mmol/L (98-107) 02/07/23 20:03 Carbon Dioxide 25 mmol/L (22-29) 02/07/23 20:03 Anion Gap 15.5 (5-19) 02/07/23 20:03 BUN 18 mg/dL (6-20) 02/07/23 20:03 Creatinine 0.9 mg/dL (0.5-0.9) 02/07/23 20:03 GFR Calculation 64.5 mL/min (90-130) L 02/07/23 20:03 Glucose 104 mg/dL (65-115) 02/07/23 20:03 Calculated Osmolality 300 mOsm/kg (285-295) H 02/07/23 20:03 Calcium 9.3 mg/dL (8.5-10.5) 02/07/23 20:03 Total Bilirubin 0.2 mg/dL (0.15-1.2) 02/07/23 20:03 AST 20 U/L (0-32) 02/07/23 20:03 ALT 26 U/L (0-33) 02/07/23 20:03 Alkaline Phosphatase 88 U/L (35-105) 02/07/23 20:03 Troponin T Baseline 186 ng/L (0-10) H* 02/07/23 20:03 NT-Pro-B Natriuret Pep 738 pg/mL (0-125) H 02/07/23 20:03 Total Protein 6.8 g/dL (6.6-8.7) 02/07/23 20:03 Albumin 3.9 g/dL (3.5-5.2) 02/07/23 20:03 Globulin 2.9 g/dL (1.3-4.6) 02/07/23 20:03 All radiology interpretation(s) finalized by discharge Critical Care Time Critical Care Time: Critical Care Time: Yes Total Critical Care Time: 75 Attestation: This case had a high probability of a clinically significant, sudden, or life threatening deterioration of this patient's condition which required my full and direct attention, intervention and personal management. 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
--- NOTE | 2023-02-07 19:51 | XRR_ITS ---
PROCEDURE INFORMATION: Exam: XR Chest Exam date and time: 02/07/2023 8:14 PM Age: 57 years old Clinical indication: Chest pressure; Prior surgery; Surgery date: 6+ months; Surgery type: Coronary stents. Cervical fusion; Patient HX: C/O chest pain TECHNIQUE: Imaging protocol: Radiologic exam of the chest. Views: 1 view. COMPARISON: CT angio chest PE protcl [id number] 12/11/2022 8:33 PM FINDINGS: Lungs: Unremarkable. No consolidation. Pleural spaces: Unremarkable. No pleural effusion. No pneumothorax. Heart/Mediastinum: Unremarkable. No cardiomegaly. Bones/joints: Unremarkable. XR/XR chest 1V portable [id number] IMPRESSION: No acute findings.
[2023-02-07] MEDS: aspirin 81 mg Chew Tablet 324 MG PO (20:02)
[2023-02-07] MEDS: nitroglycerin 1 gm/inch oint Pkt 1 INCH TOPICAL (20:05)
[2023-02-07 20:08] LABS: Basophils % 0.4 %; Eosinophils # 0.1 10^3/uL (0.0-0.8); Eosinophils % 1.7 %; Hematocrit 40.4 % (36-47); Lymphocytes # 1.3 10^3/uL (0.8-4.8); Lymphocytes % 27.9 %; Mean Corpuscular HGB Conc 32.4 g/dL (30-55); Mean Corpuscular Hemoglobin 33.9 pg (27-33); Mean Corpuscular Volume 104.4 fl (85-98); Mean Platelet Volume 9.5 fL (7.4-10.4); Monocytes # 0.6 10^3/uL (0.2-0.9); Monocytes % 12.3 %; Neutrophils # 2.74 10^3/uL (1.8-7.7); Neutrophils % 56.9 %; Nucleated Red Blood Cells % 0 %; Platelet Count 175 10^3/cmm (157-399); Red Blood Count 3.87 10^6/uL (3.85-5.65); Red Cell Distribution Width 14.6 % (12.1-15.1); White Blood Count 4.81 10^3/uL (3.29-11.43)
[2023-02-07 20:21] LABS: INR 1.08 (0.8-1.2)
[2023-02-07 20:22] LABS: Partial Thromboplastin Time 30.8 SECONDS (23.9-36.7)
[2023-02-07 20:29] LABS: Troponin(5th) Baseline 186 ng/L (0-10)
[2023-02-07 20:43] LABS: Alanine Aminotransferase 26 U/L (0-33); Albumin Level 3.9 g/dL (3.5-5.2); Alkaline Phosphatase 88 U/L (35-105); Anion Gap 15.5 (5-19); Aspartate Amino Transferase 20 U/L (0-32); Blood Urea Nitrogen 18 mg/dL (6-20); Calcium 9.3 mg/dL (8.5-10.5); Carbon Dioxide 25 mmol/L (22-29); Chloride 107 mmol/L (98-107); Globulin 2.9 g/dL (1.3-4.6); Glomerular Filtration Rate 64.5 mL/min (90-130); Glucose 104 mg/dL (65-115); NT Pro B Type Natriuretic Pept 738 pg/mL (0-125); Osmolality Calculated 300 mOsm/kg (285-295); Potassium 3.5 mmol/L (3.5-5.1); Sodium 144 mmol/L (136-145); Total Bilirubin 0.2 mg/dL (0.15-1.2); Total Protein 6.8 g/dL (6.6-8.7)
--- NOTE | 2023-02-07 21:39 | ECG_ITS ---
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 Measurements Intervals [place] Rate: 86 P: 64 [place]: 162 QRS: 76 QRSD: 82 T: 39 QT: 355 QTc: 425 Interpretive Statements SINUS RHYTHM WITH OCCASIONAL VENTRICULAR PREMATURE COMPLEXES NONSPECIFIC ST & T-WAVE ABNORMALITY Compared to ECG 12/11/2022 18:11:09 Ventricular premature complex(es) now present T-wave abnormality still present Electronically Signed On 02-08-2023 22:17:51 TUBE BENDER HAND by Ivis Drake M.D. [email or web address] [id number]
[2023-02-07] MEDS: heparin drip 25,000 UNIT/500 ML PREMIX 21.88 UNIT IV (22:10)
[2023-02-07] MEDS: heparin 5,000 unit/mL INJ 1 mL 4000 UNIT IVP (22:17)
--- NOTE | 2023-02-07 22:21 | P.HP_ITS ---
Providers/Chief Complaint Primary Care Provider: Ryann Burk Chief Complaint: cp History of Present Illness Le Barnhart is a 57 year old female with a past medical history of hemochromatosis, history of COPD, quit smoking 2 months ago, reported history of vaginal cancer status postchemotherapy, history of breast cancer status pos tmastectomy, history of recurrent syncopal episodes, with event monitor, history of bradycardia, history of type 2 diabetes mellitus, hypertension, CAD, with multiple PCI's in the past, recent admission with pulmonary embolism on Eliquis presents to the ER with ongoing chest pain radiating to jaw and right arm relieved with nitro which started today morning. As per patient she was at her baseline health till last night without any chest pain at exertion or rest. She started having chest pain today morning associated with nausea and vomiting. She states her chest pain is similar to her heart attack in the past. Denies any dizziness or difficulty in breathing. Did take up to 3 nitros at home after which pain subsided for around 30 minutes but came back. Patient was recently admitted to the hospital few months ago with chest pain and was found to have mild positive cardiac stress test and chest pain was thought to be secondary to exertional COPD exacerbation. This time chest pain been relieved by nitro but partially and for a short while with baseline troponin of 186. In the ER patient was placed on a patch after which her chest pain started around 30 minutes but on examination again complaining of chest pain with blood pressures running in 1 60-1 80 systolics Review of Systems General: Reports: 10 or more systems reviewed and unremarkable except in HPI and below Const: Denies: fever(s), chills, body aches, change in appetite, change in weight, malaise, night sweats, diaphoresis, change in sleep pattern, daytime sleepiness or snoring Eyes: Denies: change in vision, blurry vision, photophobia, eye discomfort or eye discharge ENMT: Denies: throat pain, enlarged tonsils, hoarseness, mouth pain, oral s ores, dry mouth, tinnitus, nasal congestion or post nasal drip Card: Denies: chest pain, palpitations, irregular heart rhythm, edema, swelling of feet/ankles, lightheadedness, syncope, pre-syncope, dyspnea on exertion, orthopnea, leg pain with exertion or acrocyanosis Resp: Denies: dyspnea, productive cough, non-productive cough, wheezing, stridor, pain on inspiration, change in phlegm color, hemoptysis or chest congestion GI: Denies: abdominal pain, nausea, vomiting, hematemesis, coffee ground emesis, dysphagia, heartburn, diarrhea, constipation, bloating, GI cramping, change in bowel habits, pain on defecation, hematochezia or melena : Denies: flank pain, dysuria, urinary frequency, urinary urgency, urinary hesitancy, nocturia or hematuria Musc: Denies: neck pain, back pain, extremity pain, joint pain, joint swelling, joint redness, joint stiffness or limited range of motion Neuro: Denies: headache(s), numbness in extremities, weakness in extremities, sensory changes, lack of coordination, difficulty walking, frequent falls, dizziness, vertigo, confusion, Slurred speech present, difficulty communicating thoughts or seizure-like activity Psych: Denies: anxiety, depression, mood swings, panic attacks, hopelessness or irritability Endo: Denies: polyuria, polydipsia, tired all the time, cold intolerance, excessive sweating, flushing or heat intolerance Alfonso/Lymph: Denies: easy bruising or easy bleeding All/Imm: Denies: tongue swelling, facial swelling or acute wheezing Medications/Allergies Home Medications Medication Instructions Recorded Confirmed Last Taken Type albuterol sulfate 2.5 mg/3 mL 2.5 mg inhalation Q4H PRN 06/10/22 01/23/23 01/16/23 History (0.083 %) solution for nebulization Shortness Of Breath albuterol sulfate 90 mcg/actuation 2 inh inhalation Q4H PRN shortness 06/14/22 01/23/23 01/21/23 Rx aerosol inhaler of breath or wheezing #18 grams bumetanide 1 mg tablet 1 mg PO QAM #90 tabs 06/25/22 01/23/23 01/23/23 08:00 Rx nitroglycerin 0.4 mg sublingual 0.4 mg sublingual Q5M PRN chest 06/25/22 01/23/23 12/11/22 Rx tablet pain #30 tabs ondansetron 4 mg disintegrating 4 mg PO Q6H PRN nausea and 07/17/22 01/23/23 Unknown Rx tablet vomiting #14 tabs pantoprazole 40 mg tablet,delayed 40 mg PO BID 6 weeks #84 tabs 07/22/22 01/23/23 01/23/23 08:00 Rx release (Protonix) ticagrelor 90 mg tablet (Brilinta) 90 mg PO BID #180 tabs 08/05/22 01/23/2312/22 Rx atorvastatin 40 mg tablet 40 mg PO BEDTIME 10/24/22 01/26/23 01/25/23 History bupropion HCl 300 mg 24 hr tablet, 300 mg PO DAILY 10/24/22 01/26/23 01/25/23 History extended release fluoxetine 40 mg capsule 40 mg PO DAILY 10/24/22 01/23/23 01/23/23 History metformin 500 mg tablet,extended 500 mg PO DAILY 11/20/22 01/23/23 01/23/23 08:00 History release 24 hr sitagliptin phosphate 50 mg tablet 50 mg PO DAILY 11/20/22 01/26/23 01/25/23 History (Januvia) brexpiprazole 3 mg tablet (Rexulti) 3 mg PO DAILY 11/21/22 01/23/23 01/23/23 08:00 History lidocaine-prilocaine 2.5 %-2.5 % See Rx Instructions .Route .COMPLEX 11/21/22 01/23/23 12/11/22 History topical cream umeclidinium 62.5 mcg-vilanterol 1 inh inhalation DAILY 11/21/22 01/23/23 01/16/23 History 25 mcg/actuation powdr for inhalation (Anoro Ellipta) apixaban 5 mg (74 tabs) tablets in See Rx Instructions PO .COMPLEX 11/23/22 01/23/23 01/16/23 Rx a dose pack (Eliquis DVT-PE Treat #74 ea 30D Start) Diabetic Shoes with Custom inserts #1 ea 12/10/22 01/23/23 Unknown Rx amlodipine 5 mg tablet 5 mg PO DAILY 12/11/22 01/26/23 01/25/23 History cariprazine 1.5 mg capsule 1.5 mg PO DAILY 12/11/22 01/23/23 01/23/23 08:00 History (Vraylar) docusate sodium 100 mg capsule 100 mg PO BID #14 caps 01/26/23 Unknown Rx (Colace) hydrocodone 10 mg-acetaminophen 1 tab PO Q6H PRN pain #20 tabs 01/26/23 Unknown Rx 325 mg tablet Allergies Allergy/AdvReac Type Severity Reaction Status Date / Time ketorolac [From Toradol] Allergy ALGY-Hives Verified 02/07/23 19:38 prochlorperazine Allergy Unknown Verified 02/07/23 19:38 [From Compazine] PFSH Acute PFSH: Medical History (Updated 02/07/23 @ 22:41 by Iggy Pinon MD) Atherosclerotic heart disease of [place] coronary artery with unstable angina pectoris CAD (coronary artery disease) Chest pain Cirrhosis COPD (chronic obstructive pulmonary disease) Hemochromatosis History of diabetes mellitus Hypertension Nocturnal hypoxia NSAID long-term use Sinus pause Smoking addiction Status post chemoradiation Vaginal tumors Surgical History H/O vaginal surgery Hx of appendectomy Hx of colonoscopy with polypectomy 10 yrs ago Family History Denies family history of Colon cancer Ovarian cancer Diabetes Heart disease Hypercholesteremia Breast cancer Hypertension Uterine cancer Thyroid disease Stroke Social History Smoking and tobacco/nicotine status: former use of tobacco/nicotine Quit status (tobacco/nicotine): has quit using Year quit tobacco: July 2022 Form er quit date comment: smoked 47 years Alcohol intake: never Substance/Drug Use: never Lives independently: Yes Household members: significant other Marital status: Single Vitals/I&O/Wt Last Vital Signs Temp 98.2 F 02/07/23 19:32 Pulse 86 02/07/23 20:05 Resp 20 H 02/07/23 19:32 BP 180/102 02/07/23 20:05 Pulse Ox 97 02/07/23 19:32 O2 Del Method Room Air 02/07/23 19:32 Weight last 48 hrs Weight 91.172 kg Physical Exam Narrative: General: No acute distress, AO x3 HEENT: PERRLA, pupils bilaterally equal and reactive Chest: Normal vesicular breath sounds, no added sounds, equal good air entry bilaterally CVS: S1-S2 regular, no murmurs, no tachycardia, no gallops, no rubs Abdomen: Soft, nontender, no organomegaly, bowel sounds present Neuro: No focal deficits, no facial deformity, AO x3, power 5/5 in all limbs Data 02/07/23 20:03 02/07/23 20:03 A&P Assessment and plan (1) Non-ST elevated myocardial infarction (non-STEMI): With ongoing chest pain, partially relieved by nitro paste, baseline troponin 186. Troponin few months ago was normal when she presented to the ER with chest pain. Last Lexiscan stress test few months ago showed mild pedro-infarct ischemia in RCA territory. Aspirin noted in the ER. Switch Eliquis to heparin drip. Given ongoing chest pain, hypertensive urgency start on nitro drip. Remove nitro paste. Continue with home dose of Brilinta, start aspirin 81 mg daily, home dose of statin. Appreciate recent A1c and lipid panel. Cardiology consulted from ER for possible catheterization. N.p.o. after midnight. Check echocardiogram limited (2) Hypertensive urgency: Goal blood pressure less than 140/90 mmHg. With ongoing chest pain. At home takes amlodipine 5 mg daily. Start on nitro drip as above. Titrate as per goal blood pressures. (3) Pulmonary embolism: Recent diagnosis. Currently on room air. Take Eliquis 5 mg twice daily at home. Currently on heparin drip. (4) Positive cardiac stress test: (5) CAD (coronary artery disease): (6) Diastolic CHF: Euvolemic. Continue home dose of Bumex. (7) COPD (chronic obstructive pulmonary disease): Keep oxygen saturation over 90%. DuoNebs every 6 hours, Pulmicort twice daily. No acute exacerbation. (8) Type 2 diabetes mellitus: Last A1c 5.5. Takes metformin, Sitagliptin at home. Insulin sliding scale at low-dose protocol. (9) Sinus node dysfunction: (10) Hemochromatosis: Plan Continue other chronic home medications. Full code N.p.o. after midnight for possible cardiac catheterization. Heparin drip will suffice as DVT prophylaxis. Protonix twice daily will suffice as PUD prophylaxis. Admit to ICU. Attestations Medical Necessity Statement*: Admission for more than 2 midnights for management of non-ST elevation DE, hypertensive urgency in a patient with recent history of pulmonary embolism, chronic history of CAD with multiple stents, recent positive stress test Diagnoses Non-ST elevated myocardial infarction (non-STEMI) I21.4 Hypertensive urgency I16.0 Pulmonary embolism I26.99 Positive cardiac stress test R94.39 CAD (coronary artery disease) I25.10 Diastolic CHF I50.30 COPD (chronic obstructive pulmonary disease) J44.9 Type 2 diabetes mellitus E11.9 Sinus node dysfunction I49.5 Hemochromatosis E83.119
[2023-02-07] MEDS: nitroglycerin drip 50 MG/250 ML PREMIX IV (23:18)
[2023-02-07 23:52] LABS: Troponin 5 2HR 202.3 ng/L (0-10); Troponin 5 2HR Delta 16.3 ABS# (0-10)
[2023-02-08] VITALS (47 sets, daily range): BP systolic 86–157; BP diastolic 53–102; PULSE 60–99; RESP 18–58; TEMP 36.7–37.3; O2SAT 90–96
--- NOTE | 2023-02-08 00:12 | USCV_ITS ---
Le Barnhart Age: 57 Gender: F : 1965 Exam Date: 02/08/2023 10:02 Ordering Phys: Iggy Pinon MD Technologist: Graham Pan Exam Location: [facility] [place] Indication: non st elevation mi BP: 118 / 75 HR: 85 Rhythm: Sinus Technical Quality: Adequate MEASUREMENTS (Male / Female) Normal Values 2D ECHO LVOT Diameter 2.1 cm LV Ejection Fraction MOD 2C 71.2 % LV Ejection Fraction 2C AL 71.1 % LA Diameter 3.8 cm LA Width 3.6 cm LA Height 4.8 cm RA Width 4.0 cm RA Height 4.2 cm Aorta at Sinotubular Diameter 2.5 cm IVC Diameter 1.3 cm M-MODE Aortic Annulus Diameter 3.0 cm LA Ao Ratio MM 1.2 MV E Point Septal Separation 0.6 cm DOPPLER AV Peak Velocity 153.0 cm/s LVOT Peak Velocity 126.0 cm/s AV Area Cont Eq vti 2.6 cm squared AV Area Cont Eq pk 2.8 cm squared MV Peak Velocity 101.0 cm/s MV Area PHT 5.0 cm squared Mitral E to A Ratio 0.8 MV E' Velocity 35.0 cm/s Mitral E to MV E' Ratio 11.2 Mitral E to LV E' Lateral Ratio 9.8 Mitral E to LV E' Septal Ratio 13.3 Right Atrial Pressure 3.0 mmHg PV Peak Velocity 118.0 cm/s RV Acceleration Time 0.1 s RV Ejection Time 0.2 s RV AcT/ET 0.4 FINDINGS Left Ventricle Normal LV size ejection fraction of around 50 to 55% (visual). Moderate hypokinesia of the basal and mid inferior wall segments. Relative hypokinesia of the basal inferolateral wall segment.Grade I/IV diastolic dysfunction (abnormal relaxation filling pattern), normal to mildly elevated filling pressures. Right Ventricle The right ventricle is normal in size and function. Right Atrium The right atrium is normal in size. Left Atrium The left atrium is normal in size. Mitral Valve Mild mitral valve regurgitation. Aortic Valve No gross abnormalities noted Tricuspid Valve No gross abnormalities noted Pulmonic Valve Pulmonic valve not well visualized. Pericardium Normal pericardium without effusion. Aorta Normal ascending aorta dimension. IVC Normal inferior vena cava. CONCLUSIONS Normal LV size ejection fraction of around 50 to 55% (visual). Moderate hypokinesia of the basal and mid inferior wall segments. Relative hypokinesia of the basal inferolateral wall segment.Grade I/IV diastolic dysfunction (abnormal relaxation filling pattern), normal to mildly elevated filling pressures. Mild mitral valve regurgitation. There is no pericardial effusion. There are no intracardiac masses. Compared to the study from 11/21/2022, the wall motion abnormality in the inferior wall appears to be more prominent. Revised copy of the study done on 02/08/2023 Dr Ivis Drake MD [facility] (Electronically Signed) Final Date: 08 February 2023 20:52 Amended: 26 June 2023 09:28 C
[2023-02-08] MEDS: morphine 4 mg/mL SDV 1 mL 2 MG IVP ×4 (00:13→13:23)
[2023-02-08] MEDS: atorvastatin 40 mg Tablet PO ×2 (00:13→20:52)
[2023-02-08] MEDS: ondansetron 2 mg/ML SDV 2 mL 4 MG IVP (00:15)
[2023-02-08] MEDS: HYDROcodone-acetaminophen 10-325 mg Tablet 1 TAB PO ×2 (01:48→07:47)
--- NOTE | 2023-02-08 01:51 | ECG_ITS ---
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 Measurements Intervals [place] Rate: 92 P: 59 MD: 166 QRS: 75 QRSD: 90 T: -17 QT: 355 QTc: 441 Interpretive Statements SINUS RHYTHM WITH OCCASIONAL VENTRICULAR PREMATURE COMPLEXES WITH OCCASIONAL SUPRAVENTRICULAR PREMATURE COMPLEXES NONSPECIFIC ST & T-WAVE ABNORMALITY Compared to ECG 02/07/2023 21:39:37 No significant changes Electronically Signed On 02-08-2023 22:18:51 COMMISSIONING EDITOR by Ivis Drake M.D. [id number]
[2023-02-08] MEDS: heparin drip 25,000 UNIT/500 ML PREMIX 21.8 UNIT IV (01:57)
[2023-02-08 03:23] LABS: Add Urine Culture? No; Add Urine Microscopic? YES; Amorphous Sediment Urine 2+ /hpf; Bilirubin Urine Neg (Negative); Blood Urine Trace (Negative); Glucose Urine UA Norm (Normal); Ketones Urine Negative (Negative); Leukocyte Esterase Urine Negative (Negative); Nitrate Urine Negative (Negative); Protein Urine Neg (Negative); RBC Urine RARE /hpf (0-2); Squamous Epithelial Cell Urine RARE /hpf (0-5); Urine Appearance Hazy (CLEAR); Urine Color Yellow (Yellow); Urobilinogen Urine Neg (Negative); WBC Urine RARE /hpf (0-5); pH Urine 6 (5-7)
[2023-02-08 05:26] LABS: Basophils % 0.6 %; Eosinophils # 0.1 10^3/uL (0.0-0.8); Eosinophils % 1.2 %; Hematocrit 37.8 % (36-47); Lymphocytes # 1.3 10^3/uL (0.8-4.8); Mean Corpuscular HGB Conc 32.5 g/dL (30-55); Mean Corpuscular Hemoglobin 34.6 pg (27-33); Mean Corpuscular Volume 106.2 fl (85-98); Mean Platelet Volume 10.1 fL (7.4-10.4); Monocytes # 0.5 10^3/uL (0.2-0.9); Monocytes % 9.9 %; Neutrophils # 3.23 10^3/uL (1.8-7.7); Neutrophils % 62.5 %; Nucleated Red Blood Cells % 0 %; Platelet Count 171 10^3/cmm (157-399); Red Blood Count 3.56 10^6/uL (3.85-5.65); Red Cell Distribution Width 14.3 % (12.1-15.1); White Blood Count 5.16 10^3/uL (3.29-11.43)
[2023-02-08] MEDS: bumetanide 1 mg Tablet PO (05:30)
[2023-02-08 05:41] LABS: Partial Thromboplastin Time 54.1 SECONDS (23.9-36.7)
[2023-02-08 05:46] LABS: Troponin 5 6HR Delta 4.8 ng/L (0-12)
[2023-02-08 05:47] LABS: Troponin 5 6HR 190.8 ng/L (0-10)
[2023-02-08 05:52] LABS: Alanine Aminotransferase 24 U/L (0-33); Albumin Level 3.6 g/dL (3.5-5.2); Alkaline Phosphatase 85 U/L (35-105); Anion Gap 15.6 (5-19); Aspartate Amino Transferase 19 U/L (0-32); Blood Urea Nitrogen 15 mg/dL (6-20); Calcium 8.7 mg/dL (8.5-10.5); Carbon Dioxide 25 mmol/L (22-29); Chloride 109 mmol/L (98-107); Globulin 2.8 g/dL (1.3-4.6); Glomerular Filtration Rate 86.2 mL/min (90-130); Glucose 95 mg/dL (65-115); Magnesium 1.9 mg/dL (1.7-2.3); Osmolality Calculated 303 mOsm/kg (285-295); Phosphorus 3.6 mg/dL (2.5-4.5); Potassium 3.6 mmol/L (3.5-5.1); Sodium 146 mmol/L (136-145); Total Bilirubin 0.2 mg/dL (0.15-1.2); Total Protein 6.4 g/dL (6.6-8.7)
[2023-02-08] MEDS: heparin 5,000 unit/mL INJ 1 mL IV (06:01)
[2023-02-08 06:31] LABS: Glucose Point of Care 106 mg/dL (70-110)
[2023-02-08 07:25] LABS: Alanine Aminotransferase 24 U/L (0-33); Albumin Level 3.5 g/dL (3.5-5.2); Alkaline Phosphatase 85 U/L (35-105); Anion Gap 10.7 (5-19); Aspartate Amino Transferase 19 U/L (0-32); Blood Urea Nitrogen 14 mg/dL (6-20); Calcium 8.8 mg/dL (8.5-10.5); Carbon Dioxide 28 mmol/L (22-29); Chloride 107 mmol/L (98-107); Glomerular Filtration Rate 73.9 mL/min (90-130); Glucose 113 mg/dL (65-115); Osmolality Calculated 295 mOsm/kg (285-295); Potassium 3.7 mmol/L (3.5-5.1); Sodium 142 mmol/L (136-145); Total Bilirubin 0.2 mg/dL (0.15-1.2); Total Protein 6.5 g/dL (6.6-8.7)
[2023-02-08] MEDS: pantoprazole DR 40 mg Tablet PO ×2 (08:46→17:36)
[2023-02-08] MEDS: fluoxetine 20 mg Capsule 40 MG PO (08:46)
[2023-02-08] MEDS: buPROPion XL (24 HR) 300 mg Tablet PO (08:47)
[2023-02-08] MEDS: ticagrelor 90 mg Tablet PO ×2 (08:47→17:36)
--- NOTE | 2023-02-08 08:58 | P.CONIM_ITS ---
Providers/Reason For Consult Consulting Physician/Specialty*: FIDE Drake MD/cardiology Reason for Consult*: Patient with chest pain and elevated troponin T Requesting Physician: Dr. Avery/Dr. Pinon Attending Physician: Tanvir Avery MD Primary Care Provider: Ryann Burk History of Present Illness History of Present Illness Le Barnhart is a 57 year old female with a history of atherosclerotic heart disease, status post multiple PCI's, is admitted to hospital through the emergency room where she presented with a prolonged episode of chest pain. According the patient, she was doing some shopping yesterday in [place]. She started having pain in the substernal area, radiated to the neck, to the right shoulder and to the right arm. The pain was moderate to severe in intensity, associated with some shortness of breath. She took 1 sublingual nitro which gave her some relief of the symptoms. After 30 minutes or so, she again started having chest pain. She took the second sublingual nitro. This time also she got relief of the symptoms after 5 to 10 minutes. The chest pain returned after 30-minutes or so. Because of the recurrence of the symptoms, she was brought to the emergency room. She was given more sublingual nitroglycerin and IV morphine. Currently the symptoms have completely subsided. She was having the chest pains off and on for 3 to 4 hours. She has no other associated symptoms or radiation of pain. In May of this year, she had a cardiac catheterization. She was found to have patent stented segments of the LAD and the right coronary artery. She had a 60% lesion at the ostium of the left circumflex artery. The FFR of this lesion was 0.91. So it was opted to treat her medically. She has been doing okay stenosis beginning symptoms since then. In November of this year, she had a Myocardial perfusion imaging. She was found to have an area of fixed defect with a very small area of reversible defects suggesting myocardial scarring in the distribution of the right coronary artery with very small areas of pedro-infarction ischemia. Based on the findings, the plan was to optimize medical treatment. This patient is noted to have multiple medical problems. She has a history of pulm embolism and is on oral anticoagulation. She has a history of hypertension and dyslipidemia. She also has history of COPD and obstructive sleep apnea. Apparently she could not tolerate the CPAP. She has a history of sinus node dysfunction/bradycardia. Also history of sy ncope. Currently she denies any fever, chills or cough. No other specific complaints. Review of Systems Narrative: CONSTITUTIONAL: No fever or chills. EYES: No blurring of vision or other visual disturbances lately. ENT: No hoarseness of voice, auditory disturbances or sore throat. CARDIOVASCULAR: As mentioned above. RESPIRATORY: History of sleep apnea, COPD and pulmonary embolism GASTROINTESTINAL: No hematemesis or melena. GENITOURINARY: No dysuria or hematuria. INTEGUMENTARY: No skin rashes or history of skin cancer. NEURO: No transient ischemic attacks or amaurosis. PSYCHIATRIC: No history of psychosis or major depression. HEMATOLOGIC: No bleeding disorders or significant anemia. ENDOCRINE: No history of polyuria or polydipsia. MUSCULOSKELETAL: No recent joint pain or swelling. ALLERGY/IMMUNOLOGY: As mentioned above. Medications/Allergies Home Medications Medication Instructions Recorded Confirmed Last Taken Type albuterol sulfate 2.5 mg/3 mL 2.5 mg inhalation Q4H PRN 06/10/22 01/23/23 01/16/23 History (0.083 %) solution for nebulization Shortness Of Breath albuterol sulfate 90 mcg/actuation 2 inh inhalation Q4H PRN shortness 06/14/22 01/23/23 01/21/23 Rx aerosol inhaler of breath or wheezing #18 grams bumetanide 1 mg tablet 1 mg PO QAM #90 tabs 06/25/22 01/23/23 01/23/23 08:00 Rx nitroglycerin 0.4 mg sublingual 0.4 mg sublingual Q5M PRN chest 06/25/22 01/23/23 12/11/22 Rx tablet pain #30 tabs ondansetron 4 mg disintegrating 4 mg PO Q6H PRN nausea and 07/17/22 01/23/23 Unknown Rx tablet vomiting #14 tabs pantoprazole 40 mg tablet,delayed 40 mg PO BID 6 weeks #84 tabs 07/22/22 01/23/23 01/23/23 08:00 Rx release (Protonix) ticagrelor 90 mg tablet (Brilinta) 90 mg PO BID #180 tabs 08/05/22 01/23/23 01/16/23 Rx atorvastatin 40 mg tablet 40 mg PO BEDTIME 10/24/22 01/26/23 01/25/23 History bupropion HCl 300 mg 24 hr tablet, 300 mg PO DAILY 10/24/22 01/26/23 01/25/23 History extended release fluoxetine 40 mg capsule 40 mg PO DAILY 10/24/22 01/23/23 01/23/23 History metformin 500 mg tablet,extended 500 mg PO DAILY 11/20/22 01/23/23 01/23/23 08 :00 History release 24 hr sitagliptin phosphate 50 mg tablet 50 mg PO DAILY 11/20/22 01/26/23 01/25/23 History (Januvia) brexpiprazole 3 mg tablet (Rexulti) 3 mg PO DAILY 11/21/22 01/23/23 01/23/23 08:00 History lidocaine-prilocaine 2.5 %-2.5 % See Rx Instructions .Route .COMPLEX 11/21/22 01/23/23 12/11/22 History topical cream umeclidinium 62.5 mcg-vilanterol 1 inh inhalation DAILY 11/21/22 01/23/23 01/16/23 History 25 mcg/actuation powdr for inhalation (Anoro Ellipta) apixaban 5 mg (74 tabs) tablets in See Rx Instructions PO .COMPLEX 11/23/22 01/23/23 01/16/23 Rx a dose pack ([employer] DVT-PE Treat #74 ea 30D Start) Diabetic Shoes with Custom inserts #1 ea 12/10/22 01/23/23 Unknown Rx amlodipine 5 mg tablet 5 mg PO DAILY 12/11/22 01/26/23 01/25/23 History cariprazine 1.5 mg capsule 1.5 mg PO DAILY 12/11/22 01/23/23 01/23/23 08:00 H istory (Vraylar) docusate sodium 100 mg capsule 100 mg PO BID #14 caps 01/26/23 Unknown Rx (Colace) hydrocodone 10 mg-acetaminophen 1 tab PO Q6H PRN pain #20 tabs 01/26/23 Unknown Rx 325 mg tablet Allergies Allergy/AdvReac Type Severity Reaction Status Date / Time ketorolac [From Toradol] Allergy ALGY-Hives Verified 02/07/23 19:38 prochlorperazine Allergy Unknown Verified 02/07/23 19:38 [From Compazine] Current Medications Generic Name Dose Route Start Last Admin Trade Name Freq PRN Reason Stop Dose Admin Hydrocodone Bitart/Acetaminophen 1 tab 02/07/23 23:44 02/08/23 07:47 Hydrocodone-Acetaminophen 10-325 Mg Tablet PO 1 tab Q6H PRN Administration chronic or moderate pain Atorvastatin Calcium 40 mg 02/07/23 23:44 02/08/23 00:13 Atorvastatin 40 Mg Tablet PO 40 mg BEDTIME MANOLO Administration Bumetanide 1 mg 02/08/23 06:00 02/08/23 05:30 Bumetanide 1 Mg Tablet PO 1 mg QAM MANOLO Administration Bupropion HCl 300 mg 02/08/23 09:00 02/08/23 08:47 Bupropion Xl (24 Hr) 300 Mg Tablet PO 300 mg DAILY MANOLO Administration Fluoxetine HCl 40 mg 02/08/23 09:00 02/08/23 08:46 Fluoxetine 20 Mg Capsule PO 40 mg DAILY MANOLO Administration Heparin Sodium (Porcine) 0 unit 02/08/23 01:20 02/08/23 06:01 Heparin 5,000 Unit/Ml Inj 1 Ml IV 1,900 unit PRN PRN Administration Heparin weight-base protocol Protocol Nitroglycerin/Dextrose 50 mg in 250 mls @ 0 mls/hr 02/07/23 22:30 02/08/23 03:54 Nitroglycerin Drip IV 50 mcg/min .Q0M MANOLO 15 mls/hr Titration Protocol Per Protocol Heparin Sodium/Sodium Chloride 25,000 unit in 500 mls @ 0 mls/hr 02/08/23 01:30 02/08/23 06:03 Heparin Drip IV 12.61 unit/kg/hr .Q0M MANOLO 23.8 mls/hr Titration Protocol Per Protocol Insulin Human Lispro 0 unit 02/08/23 08:00 02/08/23 07:07 Insulin Lispro 100 Unit/1 Ml SUBCUT Not Given WM&BEDTIME [facility] Protocol Morphine Sulfate 2 mg 02/07/23 23:44 02/08/23 08:49 Morphine 4 Mg/Ml Sdv 1 Ml IVP 2 mg Q4H PRN Administration SEVERE PAIN Ondansetron HCl 4 mg 02/07/23 23:44 02/08/23 00:15 Ondansetron 2 Mg/Ml Sdv 2 Ml IVP 4 mg Q8H PRN Administration vomiting, or N/V if npo Pantoprazole Sodium 40 mg 02/08/23 09:00 02/08/23 08:[address] 40 Mg Tablet PO 40 mg BID MANOLO Administration Ticagrelor 90 mg 02/08/23 09:00 02/08/23 08:47 Ticagrelor 90 Mg Tablet PO 90 mg BID MANOLO Administration PFSH Acute PFSH: Medical History Atherosclerotic heart disease of [place] coronary artery with unstable angina pectoris CAD (coronary artery disease) Chest pain Cirrhosis COPD (chronic obstructive pulmonary disease) Hemochromatosis History of diabetes mellitus Hypertension Nocturnal hypoxia NSAID long-term use Sinus pause Smoking addiction Status post chemoradiation Vaginal tumors Surgical History H/O vaginal surgery Hx of appendectomy Hx of colonoscopy with polypectomy 10 yrs ago Family History Denies family history of Colon cancer Ovarian cancer Diabetes Heart disease Hypercholesteremia Breast cancer Hypertension Uterine cancer Thyroid disease Stroke Social History Smoking and tobacco/nicotine status: former use of tobacco/nicotine Quit status (tobacco/nicotine): has quit using Year quit tobacco: July 2022 Former quit date comment: smoked 47 years Alcohol intake: never Substance/Drug Use: never Lives independently: Yes Household members: significant other Marital status: Single Vitals/I&O/Wt Last Vital Signs Temp 98.0 F 02/08/23 04:00 Pulse 94 02/08/23 08:16 Resp 20 H 02/08/23 08:49 BP 129/64 02/08/23 07:30 Pulse Ox 96 02/08/23 08:16 O2 Del Method Nasal Cannula 02/08/23 08:16 O2 Flow Rate 3 02/08/23 08:16 02/07/23 02/08/23 02/08/23 22:59 06:59 14:59 Intake Total 636.330 / 636.330 Output Total 300 / 300 200 / 200 Balance 336.330 / 336.330 -200 / -200 Weight last 48 hrs Weight 209 lb 6.4 oz Weight 208 lb Weight 201 lb Physical Exam Narrative: GENERAL: The patient is alert and oriented times three. Not in any acute distress. [] HEENT: No significant pallor, icterus or lymphadenopathy.Oral cavity: There are no mucous membrane lesions. NECK: Trachea appears to be central. No masses noted. No JVD or thyromegaly appreciated. RESPIRATORY: Chest is symmetrical. No intercostals muscle retraction or any accessory muscle activation. There is no chest wall tenderness. Breath sounds are heard bilaterally. No rales or rhonchi heard. No evidence of any consolidation. [] BREASTS: Deferred. HEART: The heart sounds are normal. No S3 or S4. No significant murmurs. No pericardial rub ABDOMEN: No vessel pulsations or distention. No tenderness. No organomegaly appreciated. Bowel sounds are normally heard. : Deferred. RECTAL: Deferred. LYMPHATIC: No lymphadenopathy noted in the neck. EXTREMITIES: No edema or cyanosis. No clubbing. MUSCULOSKELETAL: No acute joint deformities or swelling SKIN: There are no significant rashes or ecchymosis NEUROPSYCHIATRIC: The patient is alert and oriented x3. Appears to be in a good mood. No tremors or rigidity noted. Data 02/08/23 03:53 02/08/23 06:55 Other Labs: Laboratory Last Values WBC 5.16 10^3/uL (3.29-11.43) 02/08/23 03:53 RBC 3.56 10^6/uL (3.85-5.65) L 02/08/23 03:53 Hgb 12.30 g/dL (11.27-16.99) 02/08/23 03:53 Hct 37.8 % (36-47) 02/08/23 03:53 MCV 106.2 fl (85-98) H 02/08/23 03:53 MCH 34.6 pg (27-33) H 02/08/23 03:53 MCHC 32.5 g/dL (30-55) 02/08/23 03:53 RDW 14.3 % (12.1-15.1) 02/08/23 03:53 Plt Count 171 10^3/cmm (157-399) 02/08/23 03:53 MPV 10.1 fL (7.4-10.4) 02/08/23 03:53 Neut % (Auto) 62.5 % 02/08/23 03:53 Lymph % (Auto) 25.0 % 02/08/23 03:53 [place] % (Auto) 9.9 % 02/08/23 03:53 Eos % (Auto) 1.2 % 02/08/23 03:53 Baso % (Auto) 0.6 % 02/08/23 03:53 Neut # (Auto) 3.23 10^3/uL (1.8-7.7) 02/08/23 03:53 Lymph # (Auto) 1.3 10^3/uL (0.8-4.8) 02/08/23 03:53 [place] # (Auto) 0.5 10^3/uL (0.2-0.9) 02/08/23 03:53 Eos # (Auto) 0.1 10^3/uL (0.0-0.8) 02/08/23 03:53 Baso # (Auto) 0.0 10^3/uL (0.0-0.1) 02/08/23 03:53 Nucleated RBC % (auto) 0 % 02/08/23 03:53 Nucleated RBCs # 0.0 /100WBC 02/08/23 03:53 PT 14.40 SECONDS (12.1-14.9) 02/07/23 20:03 INR 1.08 (0.8-1.2) 02/07/23 20:03 APTT 54.1 SECONDS (23.9-36.7) H D 02/08/23 03:53 Sodium 142 mmol/L (136-145) 02/08/23 06:55 Potassium 3.7 mmol/L (3.5-5.1) 02/08/23 06:55 Chloride 107 mmol/L (98-107) 02/08/23 06:55 Carbon Dioxide 28 mmol/L (22-29) 02/08/23 06:55 Anion Gap 10.7 (5-19) 02/08/23 06:55 BUN 14 mg/dL (6-20) 02/08/23 06:55 Creatinine 0.8 mg/dL (0.5-0.9) 02/08/23 06:55 GFR Calculation 73.9 mL/min (90-130) L 02/08/23 06:55 Glucose 113 mg/dL (65-115) 02/08/23 06:55 POC Glucose 106 mg/dL (70-110) 02/08/23 06:28 Calculated Osmolality 295 mOsm/kg (285-295) 02/08/23 06:55 Calcium 8.8 mg/dL (8.5-10.5) 02/08/23 06:55 Phosphorus 3.6 mg/dL (2.5-4.5) 02/08/23 03:53 Magnesium 1.9 mg/dL (1.7-2.3) 02/08/23 03:53 Total Bilirubin 0.2 mg/dL (0.15-1.2) 02/08/23 06:55 AST 19 U/L (0-32) 02/08/23 06:55 ALT 24 U/L (0-33) 02/08/23 06:55 Alkaline Phosphatase 85 U/L (35-105) 02/08/23 06:55 Troponin T Baseline 186 ng/L (0-10) H* 02/07/23 20:03 Troponin T 120 Minute 202.3 ng/L (0-10) H 02/07/23 23:02 Delta Troponin T 16.3 ABS# (0-10) H* 02/07/23 23:02 Troponin T Hi Sens 6Hr 190.8 ng/L (0-10) H 02/08/23 03:53 Troponin T Hi Sens 6Hr Delta 4.8 ng/L (0-12) 02/08/23 03:53 NT-Pro-B Natriuret Pep 738 pg/mL (0-125) H 02/07/23 20:03 Total Protein 6.5 g/dL (6.6-8.7) L 02/08/23 06:55 Albumin 3.5 g/dL (3.5-5.2) 02/08/23 06:55 Globulin 3.0 g/dL (1.3-4.6) 02/08/23 06:55 Urine Color Yellow (Yellow) 02/08/23 02:00 Urine Appearance Hazy (CLEAR) A 02/08/23 02:00 Urine pH 6 (5-7) 02/08/23 02:00 Ur Specific [place] 1.020 (1.005-1.030) 02/08/23 02:00 Urine Protein Neg (Negative) 02/08/23 02:00 Urine Glucose (UA) Norm (Normal) 02/08/23 02:00 Urine Ketones Negative (Negative) 02/08/23 02:00 Urine Blood Trace (Negative) H 02/08/23 02:00 Urine Nitrate Negative (Negative) 02/08/23 02:00 Urine Bilirubin Neg (Negative) 02/08/23 02:00 Urine Urobilinogen Neg mg/dL (Negative) 02/08/23 02:00 Ur Leukocyte Esterase Negative (Negative) 02/08/23 02:00 Urine RBC Rare /hpf (0-2) 02/08/23 02:00 Urine WBC Rare /hpf (0-5) 02/08/23 02:00 Ur Squamous Epith Cells Rare /hpf (0-5) 02/08/23 02:00 Amorphous Sediment 2+ /hpf 02/08/23 02:00 Urine Bacteria None /hpf (NONE) 02/08/23 02:00 EKG 1: My Interpretation: Normal sinus rhythm with occasional supraventricular and ventricular ectopics. Some nonspecific ST changes Other data: 1. Myocardial perfusion imaging 12/12/2022 1. Small sized area of prior infarct with minimal pedro-infarct ischemia seen in ?the RCA territory ?2. LV systolic function is normal 2. Cardiac catheterization on 06/09/2022 Diagnostic Findings ? * The left main is a medium caliber vessel with no significant stenotic lesion. ? * The left anterior descending artery is a medium caliber vessel which appears to wrap around the LV apex minimally.? The proximal left anterior descending artery was found to have a long stented segment which was found to be widely patent. The first diagonal vessel was found to have minimal ostial narrowing but the normal Significant stenotic lesion. The mid and distal LAD also was found no significant stenotic lesions.. ? * The circumflex artery was found to be a medium caliber nondominant vessel with an ostial around 60% stenosis.? Rest of the vessel was found to have no significant lesions. ? * The right coronary artery is a medium to large caliber dominant vessel which was found to be extensively stented in the proximal mid and distal segments.? The stented segments were found to be widely patent.? The first RV branch is a small caliber vessel with a high-grade proximal narrowing.? The PDA and the PLV branches are found to have mild diffuse intimal irregularities. Interventional Findings ? * PROCEDURE DETAIL: We engaged left main artery with XB 3.0 guide catheter. IV heparin was administered to maintain anticoagulation.? FFR wire was advanced into distal left circumflex artery after normalization.? IV adenosine was administered and FFR was performed.? FFR value of 0.91 was obtained.? As it was nonischemic, medical therapy was decided.? iFR wire and catheter were removed. A&P Assessment and plan (1) Non-ST elevated myocardial infarction (non-STEMI): Patient is the clinical features are suggestive of a non-ST elevation myocardial infarction. Hemodynamically she is stable. The EKG changes are nonspecific. Hemodynamically she is stable and currently asymptomatic. She may be treated with subcu Lovenox, aspirin, Plavix, beta-jasmin, statin and other symptomatic measures. An echocardiogram would be helpful to evaluate LV function and rule out any other pathology. Patient may benefit from a repeat cardiac colorization to reevaluate the coronary status and decide on further management, especially if she has significant change in the LV function. She is currently on Xarelto which is held at this point. The baseline troponin T was 185 with a 2-hour delta of 16 and a 6-hour delta of 4 (2) Sinus node dysfunction: Patient has a history of sinus node dysfunction and symptomatic bradycardia. Has not had a recurrence lately. At this point, we may continue to closely monitor hold off on any specific intervention (3) Pulmonary embolism: Continue IV anticoagulation for the time being. (4) Type 2 diabetes mellitus: Continue on the current treatment. Close monitoring of the blood sugar and appropriate treatment, as per the primary attending. (5) Atherosclerotic heart disease of [place] coronary artery with unstable angina pectoris: The cardiac arrhythmia and findings from May is reported as below. Possibility of the circumflex ostial lesion progressing into a hemodynamically significant stenosis is a consideration. Plan Other problems are History of pulmonary embolism Sleep apnea COPD Based on the results of the above tests and the patient's clinical progress, further recommendations will be made. Thank you for the opportunity to evaluate this patient and make these recommendations My assessment and the plan was discussed with Dr. Jae Cleveland Attestations Medical Necessity Statement: Patient requires continued hospital stay for close monitoring and further management Coding Level of Care Code 19936 Diagnoses Non-ST elevated myocardial infarction (non-STEMI) I21.4 Sinus node dysfunction I49.5 Pulmonary embolism I26.99 Type 2 diabetes mellitus E11.9 Atherosclerotic heart disease of [place] coronary artery with unstable angina pectoris I25.110
--- NOTE | 2023-02-08 10:02 | PC.PHAR ---
ultrasound in room-unable to verify meds at this time will go back when ultrasound is gone
[2023-02-08] MEDS: insulin lispro 100 unit/1 mL SUBCUT (11:53)
[2023-02-08 11:59] LABS: Glucose Point of Care 202 mg/dL (70-110)
[2023-02-08 12:43] LABS: Partial Thromboplastin Time 66.8 SECONDS (23.9-36.7)
--- NOTE | 2023-02-08 13:13 | PC.NURSE ---
ptt came back at 66- no change in heparin per protocol. Next ptt ordered for 1800.
--- NOTE | 2023-02-08 13:36 | PC.PHAR ---
Addendum entered by Ines Mc 02/08/23 13:45: pt states still taking vraylar 1.5mg daily ext shows last filled 01/09/23 5d/s Original Note: pt states she takes care of her own medications-pts pharmacy not open on sundays to verify mg and last filled dates-medications entered are what the pt states she takes-pt states she is taking both brilinta 90mg bid ext shows last filled 12/04/22 30d/s and eliquis 5mg bid filled 01/06/23 30d/s-pt states coreg 25mg bid and plavix 75mg daily was dced ext shows last filled 12/04/22 30d/s-pt states no longer taking prazosin 1mg daily filled 12/30/22 30d/s-pt states she is not taking codeine-guaifenesin filled 01/23/23 6d/s-notes are made in the pharmacy comments
--- NOTE | 2023-02-08 14:50 | PM.PN ---
Subjective Subjective: Patient was seen this morning, cardiology at bedside, spoke to Dr. Drake, spoke to patient, spoke to nursing staff, patient tells me that her pain is more under control, she is currently on a heparin drip, nitro drip, no lightheadedness, dizziness, no nausea, no vomiting, no diaphoresis, she tells me she quit smoking 5 months ago, no shortness of breath Vitals/I&O/Wt Last Vital Signs Temp 98.4 F 02/08/23 14:22 Pulse 60 02/08/23 13:30 Resp 30 H 02/08/23 13:30 BP 99/64 02/08/23 13:30 Pulse Ox 90 02/08/23 13:00 O2 Del Method Nasal Cannula 02/08/23 08:16 O2 Flow Rate 3 02/08/23 08:16 02/07/23 02/08/23 02/08/23 22:59 06:59 14:59 Intake Total 636.330 / 636.330 171.9 / 171.9 Output Total 300 / 300 600 / 600 Balance 336.330 / 336.330 -428.1 / -428.1 Weight last 48 hrs Weight 95.311 kg Weight 94.982 kg Weight 94.347 kg Weight 91.172 kg Physical Exam Const: COMMON NORMALS: no acute distress and patient oriented x3 Resp: COMMON NORMALS: normal respiratory effort, No retractions, No use of accessory muscles and clear to auscultation bilaterally AUSCULTATION: clear to auscultation bilaterally Cardio: COMMON NORMALS: regular rate, regular rhythm, S1 normal heart sound present and S2 normal heart sound present RATE: regular rate RHYTHM: regular rhythm HEART SOUNDS: S1 normal heart sound present and S2 normal heart sound present GI: COMMON NORMALS: Normal to inspection, nondistended, normoactive bowel sounds present and non-tender Extremity: COMMON NORMALS: no pedal edema Neuro: COMMON NORMALS: patient oriented x3 Psych: COMMON NORMALS: mental status grossly normal Data 02/08/23 03:53 02/08/23 06:55 A&P Assessment and plan (1) Non-ST elevated myocardial infarction (non-STEMI): 6-hour troponin 190, delta 4.8 Last Lexiscan stress test few months ago showed mild pedro-infarct ischemia in RCA territory. Aspirin noted in the ER. Plan Switch Eliquis to heparin drip. Currently on nitro drip Monitor for recurrent chest pain Continue with home dose of Brilinta, start aspirin 81 mg daily, home dose of statin. Cardiology consulted from ER for possible catheterization. Check echocardiogram limited (2) Hypertensive urgency: Goal blood pressure less than 140/90 mmHg. With ongoing chest pain. At home takes amlodipine 5 mg daily. Start on nitro drip as above. Titrate as per goal blood pressures. (3) Pulmonary embolism: Recent diagnosis. Currently on room air. Take Eliquis 5 mg twice daily at home. Currently on heparin drip. (4) Positive cardiac stress test: (5) CAD (coronary artery disease): (6) Diastolic CHF: Euvolemic. Continue home dose of Bumex. (7) COPD (chronic obstructive pulmonary disease): Keep oxygen saturation over 90%. DuoNebs every 6 hours, Pulmicort twice daily. No acute exacerbation. (8) Type 2 diabetes mellitus: Last A1c 5.5. Takes metformin, Sitagliptin at home. Insulin sliding scale at low-dose protocol. (9) Sinus node dysfunction: (10) Hemochromatosis: (11) Chest pain: Plan Continue other chronic home medications. Full code N.p.o. after midnight for possible cardiac catheterization. Heparin drip will suffice as DVT prophylaxis. Protonix twice daily will suffice as PUD prophylaxis. Admit to ICU. Attestations Medical Necessity Statement*: Patient requires hospitalization, inpatient, due to persistent chest pain, NSTEMI, on heparin drip, nitro drip Diagnoses Non-ST elevated myocardial infarction (non-STEMI) I21.4 Hypertensive urgency I16.0 Pulmonary embolism I26.99 Positive cardiac stress test R94.39 CAD (coronary artery disease) I25.10 Diastolic CHF I50.30 COPD (chronic obstructive pulmonary disease) J44.9 Type 2 diabetes mellitus E11.9 Sinus node dysfunction I49.5 Hemochromatosis E83.119 Chest pain R07.9
[2023-02-08] MEDS: HYDROmorphone 1 mg/mL INJ 1 mL IVP ×3 (14:59→23:25)
[2023-02-08] MEDS: nitroglycerin drip 50 MG/250 ML PREMIX 15 MG IV (16:14)
[2023-02-08 17:11] LABS: Glucose Point of Care 113 mg/dL (70-110)
[2023-02-08 18:34] LABS: Partial Thromboplastin Time 56.5 SECONDS (23.9-36.7)
[2023-02-08] MEDS: heparin drip 25,000 UNIT/500 ML PREMIX 23.8 UNIT IV (19:32)
[2023-02-08 20:47] LABS: Glucose Point of Care 140 mg/dL (70-110)
[2023-02-08] MEDS: ARIPiprazole 10 mg Tablet 30 MG PO (20:52)
[2023-02-09] VITALS (16 sets, daily range): BP systolic 109–145; BP diastolic 53–89; PULSE 56–89; RESP 15–35; TEMP 37–37.3; O2SAT 90–96
[2023-02-09 01:05] LABS: Basophils % 0.3 %; Eosinophils # 0.1 10^3/uL (0.0-0.8); Eosinophils % 1.3 %; Hematocrit 39.1 % (36-47); Lymphocytes # 0.9 10^3/uL (0.8-4.8); Lymphocytes % 13.2 %; Mean Corpuscular HGB Conc 32.2 g/dL (30-55); Mean Corpuscular Hemoglobin 34.5 pg (27-33); Mean Corpuscular Volume 107.1 fl (85-98); Mean Platelet Volume 9.7 fL (7.4-10.4); Monocytes # 0.5 10^3/uL (0.2-0.9); Monocytes % 7.2 %; Neutrophils # 5.46 10^3/uL (1.8-7.7); Neutrophils % 77.3 %; Nucleated Red Blood Cells % 0 %; Platelet Count 161 10^3/cmm (157-399); Red Blood Count 3.65 10^6/uL (3.85-5.65); Red Cell Distribution Width 14.5 % (12.1-15.1); White Blood Count 7.06 10^3/uL (3.29-11.43)
[2023-02-09 01:19] LABS: Partial Thromboplastin Time 65.2 SECONDS (23.9-36.7)
[2023-02-09 01:24] LABS: Alanine Aminotransferase 22 U/L (0-33); Albumin Level 3.7 g/dL (3.5-5.2); Alkaline Phosphatase 100 U/L (35-105); Anion Gap 12.7 (5-19); Aspartate Amino Transferase 17 U/L (0-32); Blood Urea Nitrogen 12 mg/dL (6-20); Calcium 8.7 mg/dL (8.5-10.5); Carbon Dioxide 27 mmol/L (22-29); Chloride 103 mmol/L (98-107); Globulin 3.3 g/dL (1.3-4.6); Glomerular Filtration Rate 73.9 mL/min (90-130); Glucose 127 mg/dL (65-115); Magnesium 1.7 mg/dL (1.7-2.3); Osmolality Calculated 289 mOsm/kg (285-295); Phosphorus 3.4 mg/dL (2.5-4.5); Potassium 3.7 mmol/L (3.5-5.1); Sodium 139 mmol/L (136-145); Total Bilirubin 0.4 mg/dL (0.15-1.2)
--- NOTE | 2023-02-09 01:24 | PC.NURSE ---
PTT 65.2, no change required to heparin drip per protocol. PTT ordered for 0600.
[2023-02-09 01:30] LABS: NT Pro B Type Natriuretic Pept 720 pg/mL (0-125)
[2023-02-09] MEDS: HYDROmorphone 1 mg/mL INJ 1 mL IVP ×4 (03:22→19:57)
[2023-02-09] MEDS: bumetanide 1 mg Tablet PO (05:47)
[2023-02-09 07:25] LABS: Glucose Point of Care 124 mg/dL (70-110)
[2023-02-09 07:48] LABS: Partial Thromboplastin Time 62.2 SECONDS (23.9-36.7)
[2023-02-09] MEDS: nitroglycerin drip 50 MG/250 ML PREMIX 15 MG IV (08:23)
[2023-02-09] MEDS: fluoxetine 20 mg Capsule 40 MG PO (08:28)
[2023-02-09] MEDS: buPROPion XL (24 HR) 300 mg Tablet PO (08:28)
[2023-02-09] MEDS: ticagrelor 90 mg Tablet PO ×2 (08:28→17:05)
[2023-02-09] MEDS: pantoprazole DR 40 mg Tablet PO ×2 (08:28→17:05)
--- NOTE | 2023-02-09 10:44 | XACV_ITS ---
Exam Room: [facility] Ht: 163 cm Wt: 96 kg BSA: 2.12 m2 Gender: Female : 1965 Any Known Allergies: Other Exam Priority: Routine Procedure(s): Procedure Description: Diagnostic procedure Procedure Description: PCI procedure Procedure Description: Drug Eluting Coronary Stent Procedure Description: PTCA Procedure Description: Miscellaneous Procedure Description: Angio-Seal Procedure Description: Coronary Angiography Diagnostic Cath Status: Urgent Interventional RX Recommendation: PCI w/o planned CABG Diagnostic RX Recommendation: PCI w/o planned CABG Anticoagulation: Heparin Post Op Diagnosis: Description: 99% mid RCA stenosis, culprit for ACS Description: Left main: Normal LAD: Patent previously placed stent in the proximal LAD. Minor irregularities in mid distal artery. LCx: Mild 30% stenosis in the LCx ostium. RCA: Large dominant vessel. There is 99% focal acute thrombotic stenosis in the mid RCA. The lesion was right in the middle of 2 previously placed stents. There was minimal ISR in the previously placed stents. Recommendation: Angioplasty of mid RCA. Angioplasty of mid RCA: Successful angioplasty of mid RCA was performed. The lesion was predilated with 2.5 x 12 compliant balloon at 10 VALENTIN. Subsequently a drug-eluting stent 4.0 x 18 (resolute) was deployed at 16 VALENTIN. Post stent dilatation with 4.0 x 12 NC balloon at 19 VALENTIN. Summary: Successful PCI of mid RCA with 4.0 x 18 JANICE. Post angioplasty excellent angiographic result, SHANNA-3 flow. The right femoral arteriotomy site was successfully closed using Angio-Seal closing device. No complication related to the procedure. Pressures Phase:Rest AO : 139 / 76 ( 101 ) @ 12:34:00 PM 136 / 73 ( 97 ) @ 12:35:00 PM 121 / 73 ( 92 ) @ 12:36:00 PM 126 / 76 ( 98 ) @ 12:38:00 PM 207 / 90 ( 121 ) @ 12:46:00 PM 112 / 59 ( 82 ) @ 12:48:00 PM 116 / 57 ( 71 ) @ 12:58:00 PM Clinical Evaluation EBL: 5mL-10mL Procedural Details Pre-Procedure Time Out. Identified patient by full name and date of as verbalized by the patient/guarantor. Does the consent match the physician's order: Yes. Accurate & Complete Informed Consent: Yes. Inpatient/Outpatient History & Physical on Chart: Yes. If H&P is completed, is and addenduem needed: No; If yes, is the addendum complete: N/A. Visualize and Verify Site with Patient/Guarantor: N/A. Pre-op teaching completed and patient verbalized understanding. Relevant Radiology Images available: Yes. The risks, benefits, and alternatives of sedation and/or procedure were discussed by physician. The patient agrees to continue. Procedure started. [facility] Clinical Fraility Score: 4: Vulnerable. City Editor Indications: ACS > 24 hours. Chest Pain Symptom Assessment: Typical Angina Symptoms. Correct patient, site and procedure confirmed by cath team. Current diagnosis: NSTEMI. PERRLA. Strong, equal hand store group manager bilaterally. Lungs clear x 5 lobes. IV Site on Arrival: 18 gauge in the left anticubital. IV Fluids: 0.9% NaCl at KVO. 0 mL infused prior to laborer tan house. Oxygen started at 4liters/min via nasal canula. right groin was prepped with chloroprep then draped in the usual sterile fashion. Baseline sample Acquired. HR: 102 BPM. Physician arrived. Current Diagnosis : NSTEMI. Physician scrubbed in. Immediate Pre-Procedure Time Out. Correct Patient: Yes; Correct Procedure: Yes; Correct Site: Yes; Correct Patient Position: Yes; Correct Supplies: Yes; Dried Flammable Prep: Yes; Blood Products Available: N/A;. Lidocaine 1% infiltrated to the right groin. Arterial access obtained with micropuncture set. A 6 hong konger JL4 catheter in over wire. Multiple views taken of left coronary artery. Catheter removed over the standard wire. A 5 hong konger JR4 catheter in over wire. Multiple views taken of right coronary artery. Dr. Drake called to review films. Dr. Drake arrived. 6 hong konger JR 4 guide catheter was inserted over the wire. Runthrough guidewire was advanced through the guide catheter to lesion in the mid RCA. Inflation number : 1 A AB TREK 2.50X12 RX BALLOON was prepped and advanced across the Mid RCA , then inflated to 10 VALENTIN for 0:07 seconds. Inflation number: 2 The AB TREK 2.50X12 RX BALLOON was reinflated across the Mid RCA, to 10 VALENTIN for 0:07 seconds. Inflation number: 3 The AB TREK 2.50X12 RX BALLOON was reinflated across the Mid RCA, to 10 VALENTIN for 0:06 seconds. Inflation number: 4 The AB TREK 2.50X12 RX BALLOON was reinflated across the Mid RCA, to 10 VALENTIN for 0:10 seconds. Balloon out. Inflation Number : 5 A MDT R VINOD 4.0X18 JANICE -Lot Number# [id number] EXP: 06/15/2024 was prepped and advanced across the Mid RCA. The stent was deployed at 15 VALENTIN for 0:17 seconds. Stent balloon out over wire. Results checked. Inflation number : 6 A MDT NC EUPHORA RX [id number] BALLOON was prepped and advanced across the Mid RCA , then inflated to 10 VALENTIN for 0:06 seconds. Inflation number: 7 The MDT NC EUPHORA RX [id number] BALLOON was reinflated across the Mid RCA, to 19 VALENTIN for 0:13 seconds. Balloon out. Results checked. Wire out. Guide catheter out. A Right femoral angiogram was performed to determine safe placement of closure device. A Angio-Seal VIP ([facility]) was successful obtaining hemostatsis at the Right Femoral artery insertion site. Post Procedure: Pulses reassessed and unchanged. PERRLA. Strong, equal hand store group manager bilaterally. No VTE prophylaxis required. Medication's Wasted: Lidocaine 1% = 3 mL. Medication's Wasted: Nitro = 50 mcg. Medication's Wasted: Heparin = 1000 units. Total IV fluids: 61.5 mL. Post-op diagnosis: CAD. Complications: None. Estimated blood loss: 5mL-10mL. Responsiveness - Normal response to verbal stimuli; alert and oriented, PERRLA. Airway - Unaffected, no intervention required; spontaneous ventilation. Circulation: W/N/L, pulses unchanged. Nausea/Vomiting: No. Procedure completed. Vital chart was stopped. Patient transferred by bed to ICU. Access Site Site: Right Femoral artery Sheath Size: 6 Fr Hemostasis Method: Angio-Seal VIP ([facility] [place]) Hemostasis Success: Successful Procedure Medications Start: 12:23 PM Stop: 12:23 PM Medication: Versed Amount: 1 mg Route: I.V. Start: 12:23 PM Stop: 12:23 PM Medication: Fentanyl Amount: 50 mcg Route: I.V. Start: 12:29 PM Stop: 12:29 PM Medication: Versed Amount: 1 mg Route: I.V. Start: 12:46 PM Stop: 12:46 PM Medication: Heparin Amount: 57471 units Route: I.V. Start: 1:04 PM Stop: 1:04 PM Medication: Versed 1 mg and Fentanyl 25 mcg Amount: 1 Route: I.V. Start: 12:38 PM Stop: 12:38 PM Medication: Versed 1 mg and Fentanyl 25 mcg Amount: 1 Route: I.V. I, the attending physician, have reviewed and verified all procedure medications. Yes, all medications given per verbal order History/Risk Factors Hypertension: Yes Dyslipidemia: Yes Peripheral Arterial Disease (PAD): No Myocardial Infarction (NV): Yes Obesity: Yes Renal Disease: No Tobacco Use: Former Prior Interventions PCI: Yes CABG: No Valve Surgery: No Date of PCI: 06/10/2022 Report Signatures Finalized by Fernandez Griffin MD on 02/09/2023 02:16 PM
[2023-02-09 11:18] LABS: Glucose Point of Care 120 mg/dL (70-110)
--- NOTE | 2023-02-09 13:41 | PC.NURSE ---
Pt arrived back from leather tacker 1330, pt laying flat with legs strait
--- NOTE | 2023-02-09 13:53 | P.PN_ITS ---
Subjective Subjective: Patient continues to have chest pain. The vital signs remained stable. No significant arrhythmias on the monitor. Medications: Medication Review Details: Current Medications Acetaminophen (Acetaminophen 325 Mg Tablet) 650 mg PO Q6H PRN PRN Reason: Mild/Mod Pain Or Temp >/= 101 Albuterol/Ipratropium (Ipratropium-Albuterol 3 Ml Neb) 3 ml INHALATION Q6H PRN PRN Reason: SHORTNESS OF BREATH Aripiprazole (Aripiprazole 10 Mg Tablet) 30 mg PO BEDTIME [facility] Last Admin: 02/08/23 20:52 Dose: 30 mg Atorvastatin Calcium (Atorvastatin 40 Mg Tablet) 40 mg PO BEDTIME [facility] Last Admin: 02/08/23 20:52 Dose: 40 mg Bisacodyl (Bisacodyl 5 Mg Tablet) 10 mg PO DAILY PRN; Protocol PRN Reason: Constipation (see protocol) Bumetanide (Bumetanide 1 Mg Tablet) 1 mg PO QAM [facility] Last Admin: 02/09/23 05:47 Dose: 1 mg Bupropion HCl (Bupropion Xl (24 Hr) 300 Mg Tablet) 300 mg PO DAILY [facility] Last Admin: 02/09/23 08:28 Dose: 300 mg Dextrose (Dextrose 50% Syringe 50 Ml) 25 ml IVP ONCE PRN; Protocol PRN Reason: hypoglycemia protocol Dextrose (Dextrose 50% Syringe 50 Ml) 50 ml IVP PRN PRN; Protocol PRN Reason: hypoglycemia protocol Fluoxetine HCl (Fluoxetine 20 Mg Capsule) 40 mg PO DAILY [facility] Last Admin: 02/09/23 08:28 Dose: 40 mg Glucagon (Glucagon 1 Mg/Ml Inj 1 Ml) 1 mg IM ONCE PRN; Protocol PRN Reason: Adult Acute Hypoglycemia Prot. Heparin Sodium (Porcine) (Heparin 5,000 Unit/Ml Inj 1 Ml) 0 unit IV PRN PRN; Protocol PRN Reason: Heparin weight-base protocol Last Admin: 02/08/23 06:01 Dose: 1,900 unit Hydromorphone HCl (Hydromorphone 1 Mg/Ml Inj 1 Ml) 1 mg IVP Q4H PRN PRN Reason: CHEST PAIN Last Admin: 02/09/23 11:43 Dose: 1 mg Nitroglycerin/Dextrose (Nitroglycerin Drip) 50 mg in 250 mls @ 0 mls/hr IV .Q0M [facility]; Protocol Last Titration: 02/09/23 13:46 Dose: Infused Dextrose (D5w) 500 mls @ 0 mls/hr IV ONCE PRN; Protocol PRN Reason: Adult Acute Hypoglycemia Prot Heparin Sodium/Sodium Chloride (Heparin Drip) 25,000 unit in 500 mls @ 0 mls/hr IV .Q0M [facility]; Protocol Last Titration: 02/09/23 13:46 Dose: Infused Insulin Human Lispro (Insulin Lispro 100 Unit/1 Ml) 0 unit SUBCUT WM&BEDTIME [facility]; Protocol Last Admin: 02/09/23 11:26 Dose: Not Given Lactulose (Lactulose Oral Liq 20 Gm/30 Ml Udc) 10 gm PO DAILY PRN; Protocol PRN Reason: Constipation (see protocol) Magnesium Hydroxide (Magnesium Hydroxide 30 Ml Udc) 30 ml PO DAILY PRN; Protocol PRN Reason: Constipation (see protocol) Non-Formulary Medication (Brexpiprazole [Rexulti]) 2 mg PO DAILY [facility] Last Admin: 02/09/23 07:59 Dose: Not Given Non-Formulary Medication (Cariprazine [Vraylar]) 1.5 mg PO DAILY [facility] Last Admin: 02/09/23 07:59 Dose: Not Given Ondansetron HCl (Ondansetron 2 Mg/Ml Sdv 2 Ml) 4 mg IVP Q8H PRN PRN Reason: vomiting, or N/V if npo Last Admin: 02/08/23 00:15 Dose: 4 mg Pantoprazole Sodium (Pantoprazole Dr 40 Mg Tablet) 40 mg PO BID [facility] Last Admin: 02/09/23 08:28 Dose: 40 mg Ticagrelor (Ticagrelor 90 Mg Tablet) 90 mg PO BID [facility] Last Admin: 02/09/23 08:28 Dose: 90 mg Vitals/I&O/Wt Last Vital Signs Temp 98.6 F 02/09/23 08:00 Pulse 68 02/09/23 10:00 Resp 35 H 02/09/23 10:00 BP 110/61 02/09/23 12:00 Pulse Ox 94 02/09/23 09:05 O2 Del Method Nasal Cannula 02/09/23 09:05 O2 Flow Rate 3 02/09/23 09:05 02/08/23 02/09/23 02/09/23 22:59 06:59 14:59 Intake Total 826.153 / 998.053 823.25 / 823.25 Output Total 150 / 750 375 / 1125 Balance 676.153 / 248.053 -375 / -126.947 823.25 / 823.25 Weight last 48 hrs Weight 211 lb 9.6 oz Weight 210 lb 2 oz Weight 209 lb 6.4 oz Weight 208 lb Weight 201 lb Physical Exam Narrative: GENERAL: The patient is alert and oriented times three. Not in any acute distress. [] HEENT: No significant pallor, icterus or lymphadenopathy.Oral cavity: There are no mucous membrane lesions. NECK: Trachea appears to be central. No masses noted. No JVD or thyromegaly appreciated. RESPIRATORY: Chest is symmetrical. No intercostals muscle retraction or any accessory muscle activation. There is no chest wall tenderness. Breath sounds are heard bilaterally. No rales or rhonchi heard. No evidence of any consolidation. [] BREASTS: Deferred. HEART: The heart sounds are normal. No S3 or S4. No significant murmurs. No pericardial rub ABDOMEN: No vessel pulsations or distention. No tenderness. No organomegaly appreciated. Bowel sounds are normally heard. : Deferred. RECTAL: Deferred. LYMPHATIC: No lymphadenopathy noted in the neck. EXTREMITIES: No edema or cyanosis. No clubbing. MUSCULOSKELETAL: No acute joint deformities or swelling SKIN: There are no significant rashes or ecchymosis NEUROPSYCHIATRIC: The patient is alert and oriented x3. Appears to be in a good mood. No tremors or rigidity noted. Data 02/09/23 00:36 02/09/23 00:36 Other Labs: Laboratory Last Values WBC 7.06 10^3/uL (3.29-11.43) 02/09/23 00:36 RBC 3.65 10^6/uL (3.85-5.65) L 02/09/23 00:36 Hgb 12.60 g/dL (11.27-16.99) 02/09/23 00:36 Hct 39.1 % (36-47) 02/09/23 00:36 MCV 107.1 fl (85-98) H 02/09/23 00:36 MCH 34.5 pg (27-33) H 02/09/23 00:36 MCHC 32.2 g/dL (30-55) 02/09/23 00:36 RDW 14.5 % (12.1-15.1) 02/09/23 00:36 Plt Count 161 10^3/cmm (157-399) 02/09/23 00:36 MPV 9.7 fL (7.4-10.4) 02/09/23 00:36 Neut % (Auto) 77.3 % 02/09/23 00:36 Lymph % (Auto) 13.2 % 02/09/23 00:36 [place] % (Auto) 7.2 % 02/09/23 00:36 Eos % (Auto) 1.3 % 02/09/23 00:36 Baso % (Auto) 0.3 % 02/09/23 00:36 Neut # (Auto) 5.46 10^3/uL (1.8-7.7) 02/09/23 00:36 Lymph # (Auto) 0.9 10^3/uL (0.8-4.8) 02/09/23 00:36 [place] # (Auto) 0.5 10^3/uL (0.2-0.9) 02/09/23 00:36 Eos # (Auto) 0.1 10^3/uL (0.0-0.8) 02/09/23 00:36 Baso # (Auto) 0.0 10^3/uL (0.0-0.1) 02/09/23 00:36 Nucleated RBC % (auto) 0 % 02/09/23 00:36 Nucleated RBCs # 0.0 /100WBC 02/09/23 00:36 PT 14.40 SECONDS (12.1-14.9) 02/07/23 20:03 INR 1.08 (0.8-1.2) 02/07/23 20:03 APTT 62.2 SECONDS (23.9-36.7) H 02/09/23 07:08 Sodium 139 mmol/L (136-145) 02/09/23 00:36 Potassium 3.7 mmol/L (3.5-5.1) 02/09/23 00:36 Chloride 103 mmol/L (98-107) 02/09/23 00:36 Carbon Dioxide 27 mmol/L (22-29) 02/09/23 00:36 Anion Gap 12.7 (5-19) 02/09/23 00:36 BUN 12 mg/dL (6-20) 02/09/23 00:36 Creatinine 0.8 mg/dL (0.5-0.9) 02/09/23 00:36 GFR Calculation 73.9 mL/min (90-130) L 02/09/23 00:36 Glucose 127 mg/dL (65-115) H 02/09/23 00:36 POC Glucose 120 mg/dL (70-110) H 02/09/23 11:11 Calculated Osmolality 289 mOsm/kg (285-295) 02/09/23 00:36 Calcium 8.7 mg/dL (8.5-10.5) 02/09/23 00:36 Phosphorus 3.4 mg/dL (2.5-4.5) 02/09/23 00:36 Magnesium 1.7 mg/dL (1.7-2.3) 02/09/23 00:36 Total Bilirubin 0.4 mg/dL (0.15-1.2) 02/09/23 00:36 AST 17 U/L (0-32) 02/09/23 00:36 ALT 22 U/L (0-33) 02/09/23 00:36 Alkaline Phosphatase 100 U/L (35-105) 02/09/23 00:36 Troponin T Baseline 186 ng/L (0-10) H* 02/07/23 20:03 Troponin T 120 Minute 202.3 ng/L (0-10) H 02/07/23 23:02 Delta Troponin T 16.3 ABS# (0-10) H* 02/07/23 23:02 Troponin T Hi Sens 6Hr 190.8 ng/L (0-10) H 02/08/23 03:53 Troponin T Hi Sens 6Hr Delta 4.8 ng/L (0-12) 02/08/23 03:53 NT-Pro-B Natriuret Pep 720 pg/mL (0-125) H 02/09/23 00:36 Total Protein 7.0 g/dL (6.6-8.7) 02/09/23 00:36 Albumin 3.7 g/dL (3.5-5.2) 02/09/23 00:36 Globulin 3.3 g/dL (1.3-4.6) 02/09/23 00:36 Urine Color Yellow (Yellow) 02/08/23 02:00 Urine Appearance Hazy (CLEAR) A 02/08/23 02:00 Urine pH 6 (5-7) 02/08/23 02:00 Ur Specific [place] 1.020 (1.005-1.030) 02/08/23 02:00 Urine Protein Neg (Negative) 02/08/23 02:00 Urine Glucose (UA) Norm (Normal) 02/08/23 02:00 Urine Ketones Negative (Negative) 02/08/23 02:00 Urine Blood Trace (Negative) H 02/08/23 02:00 Urine Nitrate Negative (Negative) 02/08/23 02:00 Urine Bilirubin Neg (Negative) 02/08/23 02:00 Urine Urobilinogen Neg mg/dL (Negative) 02/08/23 02:00 Ur Leukocyte Esterase Negative (Negative) 02/08/23 02:00 Urine RBC Rare /hpf (0-2) 02/08/23 02:00 Urine WBC Rare /hpf (0-5) 02/08/23 02:00 Ur Squamous Epith Cells Rare /hpf (0-5) 02/08/23 02:00 Amorphous Sediment 2+ /hpf 02/08/23 02:00 Urine Bacteria None /hpf (NONE) 02/08/23 02:00 A&P Assessment and plan (1) Non-ST elevated myocardial infarction (non-STEMI): In view of the patient's ongoing chest pain, in order to further evaluate her coronary status, she requires a cardiac catheterization. She may continue on current medications. (2) Sinus node dysfunction: Patient has a history of sinus node dysfunction and symptomatic bradycardia. Has not had a recurrence lately. At this point, we may continue to closely monitor hold off on any specific intervention (3) Pulmonary embolism: Continue IV anticoagulation for the time being. (4) Type 2 diabetes mellitus: Continue on the current treatment. Close monitoring of the blood sugar and appropriate treatment, as per the primary attending. (5) Atherosclerotic heart disease of [place] coronary artery with unstable angina pectoris: Based on the angiogram findings, further recommendations will be made. Plan Other problems are History of pulmonary embolism Sleep apnea COPD The risk of bleeding, hematoma, vascular injury, myocardial infarction, myocardial perforation, malignant cardiac arrhythmias ,CVA, renal failure and other concomitant complications were explained in detail. Patient understood this well and consented to proceed. Because of the scheduling conflict I contacted Dr. Griffin to do this procedure. The cardiac catheterization was performed through the right groin. Patient was found to have a high-grade lesion in the mid RCA. She underwent PCI of this lesion. She will be kept overnight in the hospital. Attestations Medical Necessity Statement*: Possible discharge home tomorrow Coding Level of Care Code Acute Code for [facility] Fwd Diagnoses Non-ST elevated myocardial infarction (non-STEMI) I21.4 Sinus node dysfunction I49.5 Pulmonary embolism I26.99 Type 2 diabetes mellitus E11.9 Atherosclerotic heart disease of [place] coronary artery with unstable angina pectoris I25.110
[2023-02-09 16:55] LABS: Glucose Point of Care 169 mg/dL (70-110)
[2023-02-09] MEDS: insulin lispro 100 unit/1 mL SUBCUT ×2 (17:04→20:04)
--- NOTE | 2023-02-09 19:50 | PM.PN ---
Subjective Subjective: Patient was seen this morning, she continues to have episodes of chest pain, she is awaiting her coronary angiography, denies any shortness of breath, no abdominal pain Vitals/I&O/Wt Last Vital Signs Temp 98.6 F 02/09/23 08:00 Pulse 83 02/09/23 18:00 Resp 29 H 02/09/23 18:00 BP 116/69 02/09/23 18:00 Pulse Ox 94 02/09/23 09:05 O2 Del Method Nasal Cannula 02/09/23 09:05 O2 Flow Rate 3 02/09/23 09:05 02/09/23 02/09/23 02/09/23 06:59 14:59 22:59 Intake Total 823.25 / 823.25 Output Total 375 / 1125 Balance -375 / -126.947 823.25 / 823.25 Weight last 48 hrs Weight 95.98 kg Weight 95.311 kg Weight 94.982 kg Weight 94.347 kg Physical Exam Const: COMMON NORMALS: no acute distress and patient oriented x3 Resp: COMMON NORMALS: normal respiratory effort, No retractions, No use of accessory muscles and clear to auscultation bilaterally AUSCULTATION: clear to auscultation bilaterally Cardio: COMMON NORMALS: regular rate, regular rhythm, S1 normal heart sound present and S2 normal heart sound present RATE: regular rate RHYTHM: regular rhythm HEART SOUNDS: S1 normal heart sound present and S2 normal heart sound present GI: COMMON NORMALS: Normal to inspection, nondistended, normoactive bowel sounds present and non-tender Extremity: COMMON NORMALS: no pedal edema Neuro: COMMON NORMALS: patient oriented x3 Psych: COMMON NORMALS: mental status grossly normal Data 02/09/23 00:36 02/09/23 00:36 A&P Assessment and plan (1) Non-ST elevated myocardial infarction (non-STEMI): 6-hour troponin 190, delta 4.8 Last Lexiscan stress test few months ago showed mild pedro-infarct ischemia in RCA territory. Aspirin noted in the ER. Plan heparin drip. Currently on nitro drip Monitor for recurrent chest pain Continue with home dose of Brilinta, start aspirin 81 mg daily, home dose of statin. Plans on coronary angiography today (2) Hypertensive urgency: Goal blood pressure less than 140/90 mmHg. With ongoing chest pain. At home takes amlodipine 5 mg daily. Start on nitro drip as above. Titrate as per goal blood pressures. (3) Pulmonary embolism: Recent diagnosis. Currently on room air. Take Eliquis 5 mg twice daily at home. Currently on heparin drip. (4) Positive cardiac stress test: (5) CAD (coronary artery disease): (6) Diastolic CHF: Euvolemic. Continue home dose of Bumex. (7) COPD (chronic obstructive pulmonary disease): Keep oxygen saturation over 90%. DuoNebs every 6 hours, Pulmicort twice daily. No acute exacerbation. (8) Type 2 diabetes mellitus: Last A1c 5.5. Takes metformin, Sitagliptin at home. Insulin sliding scale at low-dose protocol. (9) Sinus node dysfunction: (10) Hemochromatosis: (11) Chest pain: Plan Continue other chronic home medications. Full code Heparin drip will suffice as DVT prophylaxis. Protonix twice daily will suffice as PUD prophylaxis. Admit to ICU. Attestations Medical Necessity Statement*: Patient requires hospitalization for NSTEMI, chest pain, proceeding with coronary angiography Diagnoses Non-ST elevated myocardial infarction (non-STEMI) I21.4 Hypertensive urgency I16.0 Pulmonary embolism I26.99 Positive cardiac stress test R94.39 CAD (coronary artery disease) I25.10 Diastolic CHF I50.30 COPD (chronic obstructive pulmonary disease) J44.9 Type 2 diabetes mellitus E11.9 Sinus node dysfunction I49.5 Hemochromatosis E83.119 Chest pain R07.9
[2023-02-09] MEDS: ARIPiprazole 10 mg Tablet 30 MG PO (19:59)
[2023-02-09] MEDS: atorvastatin 40 mg Tablet PO (19:59)
[2023-02-09 20:05] LABS: Glucose Point of Care 159 mg/dL (70-110)
[2023-02-09] MEDS: zolpidem 5 mg Tablet PO (21:13)
[2023-02-10] VITALS (8 sets, daily range): BP systolic 132–152; BP diastolic 75–93; PULSE 68–85; RESP 15–30; TEMP 37.2; O2SAT 93–96
[2023-02-10] MEDS: HYDROmorphone 1 mg/mL INJ 1 mL IVP (04:46)
[2023-02-10] MEDS: bumetanide 1 mg Tablet PO (05:16)
[2023-02-10 05:54] LABS: Basophils % 0.3 %; Eosinophils # 0.1 10^3/uL (0.0-0.8); Eosinophils % 1.8 %; Hematocrit 37.4 % (36-47); Lymphocytes # 0.8 10^3/uL (0.8-4.8); Lymphocytes % 12.5 %; Mean Corpuscular HGB Conc 33.2 g/dL (30-55); Mean Corpuscular Hemoglobin 34.3 pg (27-33); Mean Corpuscular Volume 103.6 fl (85-98); Mean Platelet Volume 10.1 fL (7.4-10.4); Monocytes # 0.4 10^3/uL (0.2-0.9); Monocytes % 6.6 %; Neutrophils % 77.7 %; Nucleated Red Blood Cells % 0 %; Platelet Count 160 10^3/cmm (157-399); Red Blood Count 3.61 10^6/uL (3.85-5.65); Red Cell Distribution Width 14.3 % (12.1-15.1); White Blood Count 6.18 10^3/uL (3.29-11.43)
[2023-02-10 06:40] LABS: Alanine Aminotransferase 21 U/L (0-33); Albumin Level 3.6 g/dL (3.5-5.2); Alkaline Phosphatase 89 U/L (35-105); Anion Gap 14.4 (5-19); Aspartate Amino Transferase 17 U/L (0-32); Blood Urea Nitrogen 10 mg/dL (6-20); Calcium 9.2 mg/dL (8.5-10.5); Carbon Dioxide 25 mmol/L (22-29); Chloride 102 mmol/L (98-107); Globulin 3.5 g/dL (1.3-4.6); Glucose 113 mg/dL (65-115); Magnesium 1.9 mg/dL (1.7-2.3); NT Pro B Type Natriuretic Pept 1109 pg/mL (0-125); Osmolality Calculated 286 mOsm/kg (285-295); Phosphorus 2.3 mg/dL (2.5-4.5); Potassium 3.4 mmol/L (3.5-5.1); Sodium 138 mmol/L (136-145); Total Bilirubin 0.5 mg/dL (0.15-1.2); Total Protein 7.1 g/dL (6.6-8.7)
[2023-02-10 09:03] LABS: Glucose Point of Care 153 mg/dL (70-110)
[2023-02-10] MEDS: pantoprazole DR 40 mg Tablet PO (09:07)
[2023-02-10] MEDS: insulin lispro 100 unit/1 mL SUBCUT (09:07)
[2023-02-10] MEDS: fluoxetine 20 mg Capsule 40 MG PO (09:07)
[2023-02-10] MEDS: buPROPion XL (24 HR) 300 mg Tablet PO (09:07)
[2023-02-10] MEDS: ticagrelor 90 mg Tablet PO (09:08)
[2023-02-10] MEDS: HYDROcodone-acetaminophen 5-325 mg Tablet 1 TAB PO (09:10)
[2023-02-10] MEDS: apixaban 5 mg Tablet PO (09:10)
--- NOTE | 2023-02-10 10:58 | P.DS_ITS ---
Discharge Providers Date of Admission: 02/07/23 21:57 Date of Discharge: February 10, 2023 Attending Provider at Admission: Iggy Pinon MD Attending Provider at Discharge: Tanvir Avery MD Primary Care Provider: Ryann Burk Diagnoses at Discharge Discharge Diagnosis (1) Non-ST elevated myocardial infarction (non-STEMI): Status: Resolved (2) Hypertensive urgency: Status: Resolved (3) Pulmonary embolism: Status: Acute (4) Positive cardiac stress test: Status: Resolved (5) CAD (coronary artery disease): Status: Acute (6) Diastolic CHF: Status: Acute (7) COPD (chronic obstructive pulmonary disease): Status: Acute (8) Type 2 diabetes mellitus: Status: Acute (9) Sinus node dysfunction: Status: Acute (10) Hemochromatosis: Status: Acute (11) Chest pain: Status: Resolved Reason for Visit Reason for Visit: cp Hospital Course Hospital Course Le Barnhart is a 57 year old female with a past medical history of hemochromatosis, history of COPD, quit smoking 2 months ago, reported history of vaginal cancer status postchemotherapy, history of breast cancer status postmastectomy, history of recurrent syncopal episodes, with event monitor, history of bradycardia, history of type 2 diabetes mellitus, hypertension, CAD, with multiple PCI's in the past, recent admission with pulmonary embolism on Eliquis presents to the ER with ongoing chest pain radiating to jaw and right arm relieved with nitro which started today morning. As per patient she was at her baseline health till last night without any chest pain at exertion or rest. She started having chest pain today morning associated with nausea and vomiting. She states her chest pain is similar to her heart attack in the past. Denies any dizziness or difficulty in breathing. Did take up to 3 nitros at home after which pain subsided for around 30 minutes but came back. Patient was recently admitted to the hospital few months ago with chest pain and was found to have mild positive cardiac stress test and chest pain was thought to be secondary to exertional COPD exacerbation. This time chest pain been relieved by nitro but partially and for a short while with baseline troponin of 186. In the ER patient was placed on a patch after which her chest pain started around 30 minutes but on examination again complaining of chest pain with blood pressures running in 1 60-1 80 systolics Patient was admitted to [facility] for non-ST elevation myocardial infarction, manage on nitro drip, heparin drip, medically manage initially, underwent PCI with mid RCA lesion, monitored thereafter, overall remained chest pain-free, discharged on Brilinta, Eliquis, with a close follow-up cardiology as outpatient Physical Exam Const: COMMON NORMALS: no acute distress and patient oriented x3 Resp: COMMON NORMALS: normal respiratory effort, No retractions, No use of acc essory muscles and clear to auscultation bilaterally AUSCULTATION: clear to auscultation bilaterally Cardio: COMMON NORMALS: regular rate, regular rhythm, S1 normal heart sound present and S2 normal heart sound present RATE: regular rate RHYTHM: regular rhythm HEART SOUNDS: S1 normal heart sound present and S2 normal heart sound present GI: COMMON NORMALS: Normal to inspection, nondistended, normoactive bowel sounds present and non-tender Extremity: COMMON NORMALS: no pedal edema Neuro: COMMON NORMALS: patient oriented x3 Psych: COMMON NORMALS: mental status grossly normal Discharge Data Studies Completed and Pending Completed Studies During Hospitalization Category Date Time Status [employer] request for service Routine Exams 02/09/23 10:44 Completed XR chest 1V portable [id number] Stat Exams 02/07/23 19:51 Completed CV. echo complete* [id number] Routine Ultrasound 02/08/23 00:12 Completed Pending at discharge Category Date Time Status Complete Blood Count w/Auto AM LABS Lab 02/11/23 04:00 Ordered Comprehensive Metabolic Panel AM LABS Lab 02/11/23 04:00 Ordered Magnesium AM LABS Lab 02/11/23 04:00 Ordered NT Pro B Type Natriuretic Pept QAM Lab 02/11/23 06:00 Ordered Phosphorus AM LABS Lab 02/11/23 04:00 Ordered Radiology Impressions Chest X-Ray 02/07/23 19:51 IMPRESSION: No acute findings. Laboratory Results WBC 6.18 10^3/uL (3.29-11.43) 02/10/23 05:10 RBC 3.61 10^6/uL (3.85-5.65) L 02/10/23 05:10 Hgb 12.40 g/dL (11.27-16.99) 02/10/23 05:10 Hct 37.4 % (36-47) 02/10/23 05:10 MCV 103.6 fl (85-98) H 02/10/23 05:10 MCH 34.3 pg (27-33) H 02/10/23 05:10 MCHC 33.2 g/dL (30-55) 02/10/23 05:10 RDW 14.3 % (12.1-15.1) 02/10/23 05:10 Plt Count 160 10^3/cmm (157-399) 02/10/23 05:10 MPV 10.1 fL (7.4-10.4) 02/10/23 05:10 Neut % (Auto) 77.7 % 02/10/23 05:10 Lymph % (Auto) 12.5 % 02/10/23 05:10 [place] % (Auto) 6.6 % 02/10/23 05:10 Eos % (Auto) 1.8 % 02/10/23 05:10 Baso % (Auto) 0.3 % 02/10/23 05:10 Neut # (Auto) 4.80 10^3/uL (1.8-7.7) 02/10/23 05:10 Lymph # (Auto) 0.8 10^3/uL (0.8-4.8) 02/10/23 05:10 [place] # (Auto) 0.4 10^3/uL (0.2-0.9) 02/10/23 05:10 Eos # (Auto) 0.1 10^3/uL (0.0-0.8) 02/10/23 05:10 Baso # (Auto) 0.0 10^3/uL (0.0-0.1) 02/10/23 05:10 Nucleated RBC % (auto) 0 % 02/10/23 05:10 Nucleated RBCs # 0.0 /100WBC 02/10/23 05:10 PT 14.40 SECONDS (12.1-14.9) 02/07/23 20:03 INR 1.08 (0.8-1.2) 02/07/23 20:03 APTT 62.2 SECONDS (23.9-36.7) H 02/09/23 07:08 Sodium 138 mmol/L (136-145) 02/10/23 05:10 Potassium 3.4 mmol/L (3.5-5.1) L 02/10/23 05:10 Chloride 102 mmol/L (98-107) 02/10/23 05:10 Carbon Dioxide 25 mmol/L (22-29) 02/10/23 05:10 Anion Gap 14.4 (5-19) 02/10/23 05:10 BUN 10 mg/dL (6-20) 02/10/23 05:10 Creatinine 0.6 mg/dL (0.5-0.9) 02/10/23 05:10 GFR Calculation 103.0 mL/min (90-130) 02/10/23 05:10 Glucose 113 mg/dL (65-115) 02/10/23 05:10 POC Glucose 153 mg/dL (70-110) H 02/10/23 08:35 Calculated Osmolality 286 mOsm/kg (285-295) 02/10/23 05:10 Calcium 9.2 mg/dL (8.5-10.5) 02/10/23 05:10 Phosphorus 2.3 mg/dL (2.5-4.5) L 02/10/23 05:10 Magnesium 1.9 mg/dL (1.7-2.3) 02/10/23 05:10 Total Bilirubin 0.5 mg/dL (0.15-1.2) 02/10/23 05:10 AST 17 U/L (0-32) 02/10/23 05:10 ALT 21 U/L (0-33) 02/10/23 05:10 Alkaline Phosphatase 89 U/L (35-105) 02/10/23 05:10 Troponin T Baseline 186 ng/L (0-10) H* 02/07/23 20:03 Troponin T 120 Minute 202.3 ng/L (0-10) H 02/07/23 23:02 Delta Troponin T 16.3 ABS# (0-10) H* 02/07/23 23:02 Troponin T Hi Sens 6Hr 190.8 ng/L (0-10) H 02/08/23 03:53 Troponin T Hi Sens 6Hr Delta 4.8 ng/L (0-12) 02/08/23 03:53 NT-Pro-B Natriuret Pep 1109 pg/mL (0-125) H 02/10/23 05:10 Total Protein 7.1 g/dL (6.6-8.7) 02/10/23 05:10 Albumin 3.6 g/dL (3.5-5.2) 02/10/23 05:10 Globulin 3.5 g/dL (1.3-4.6) 02/10/23 05:10 Urine Color Yellow (Yellow) 02/08/23 02:00 Urine Appearance Hazy (CLEAR) A 02/08/23 02:00 Urine pH 6 (5-7) 02/08/23 02:00 Ur Specific [place] 1.020 (1.005-1.030) 02/08/23 02:00 Urine Protein Neg (Negative) 02/08/23 02:00 Urine Glucose (UA) Norm (Normal) 02/08/23 02:00 Urine Ketones Negative (Negative) 02/08/23 02:00 Urine Blood Trace (Negative) H 02/08/23 02:00 Urine Nitrate Negative (Negative) 02/08/23 02:00 Urine Bilirubin Neg (Negative) 02/08/23 02:00 Urine Urobilinogen Neg mg/dL (Negative) 02/08/23 02:00 Ur Leukocyte Esterase Negative (Negative) 02/08/23 02:00 Urine RBC Rare /hpf (0-2) 02/08/23 02:00 Urine WBC Rare /hpf (0-5) 02/08/23 02:00 Ur Squamous Epith Cells Rare /hpf (0-5) 02/08/23 02:00 Amorphous Sediment 2+ /hpf 02/08/23 02:00 Urine Bacteria None /hpf (NONE) 02/08/23 02:00 Vitals Last Vital Signs Temp 98.9 F 02/10/23 04:00 Pulse 71 02/10/23 08:00 Resp 20 H 02/10/23 08:00 BP 135/86 02/10/23 08:00 Pulse Ox 94 02/10/23 08:00 O2 Del Method Nasal Cannula 02/10/23 08:00 O2 Flow Rate 2 02/10/23 08:00 Discharge Plan Discharge Patient Disposition: Home Condition: Stable Prescriptions: Continued nitroglycerin 0.4 mg tablet, sublingual 0.4 mg sublingual Q5M PRN (Reason: chest pain) Qty: 30 2RF Rx Instructions: do not exceed 3 doses per episode bumetanide 1 mg tablet 1 mg PO QAM Qty: 90 2RF Rx Instructions: increase to 2mg daily for 3 days then reduce to 1mg daily. Take with potassium metformin 500 mg tablet extended release 24 hr 1,000 mg PO DAILY Januvia 50 mg tablet 50 mg PO DAILY (DME) Diabetic Shoes with Custom inserts See Rx Instructions .Route .MEDSUPPLY Qty: 1 0RF Rx Instructions: As directed by Cookie Brewster Brilinta 90 mg tablet 90 mg PO BID Qty: 180 2RF Hold Instructions: Resume on 01/28/23. albuterol sulfate 90 mcg/actuation HFA aerosol inhaler 2 inh INHALATION Q4H PRN (Reason: shortness of breath or wheezing) Qty: 18 0RF ondansetron 4 mg tablet,disintegrating 4 mg PO Q6H PRN (Reason: nausea and vomiting) Qty: 14 0RF Anoro Ellipta 62.5-25 mcg/actuation blister with device 1 inh INHALATION DAILY lidocaine-prilocaine 2.5-2.5 % cream See Rx Instructions .ROUTE .COMPLEX Rx Instructions: Apply to port 30-45 minutes prior to access hydrocodone-acetaminophen 10-325 mg tablet 1 tab PO Q6H PRN (Reason: pain) Qty: 20 0RF albuterol sulfate 2.5 mg /3 mL (0.083 %) solution for nebulization 2.5 mg inhalation Q4H PRN (Reason: Shortness Of Breath) fluoxetine 40 mg capsule 40 mg PO DAILY bupropion HCl 300 mg tablet extended release 24 hr 300 mg PO DAILY Vraylar 1.5 mg capsule 1.5 mg PO DAILY hydralazine 25 mg tablet 25 mg PO BID amlodipine 2.5 mg tablet 2.5 mg PO DAILY Advair Diskus 500-50 mcg/dose blister with device 1 ea INHALATION BID aripiprazole 30 mg tablet 30 mg PO BEDTIME metoprolol tartrate 25 mg tablet 25 mg PO BID Victoza 3-Alessandro 0.6 mg/0.1 mL (18 mg/3 mL) pen injector 1.2 mg SUBCUT QAM Eliquis 5 mg tablet 5 mg PO BID Rexulti 2 mg tablet 2 mg PO DAILY Colace 100 mg capsule 100 mg PO BID PRN (Reason: Constipation) Discharge Orders: Discharge Order (Routine); Ordered 02/10/23 Ordered By: Tanvir Avery Referrals: Ivis Drake MD [Physician] - (Your Dr. Drake follow up appointment will be scheduled during your Yoselyn Woods appointment. Thank you.) Yoselyn Woods FNP [Nurse Practitioner] - 02/17/23 10:00 am Ryann Burk [Primary Care Provider] - 02/19/23 11:15 am Discharge Diet: Cardiac Discharge Activity: Resume usual activity Patient Instructions: Heart Failure (DC), Coronary Intravascular Stent Placement (GEN), Coronary Angioplasty (DC), CHF Stoplight, Opioid Safety, Post A ngiogram Home Care Instructions, Post Heart Attack Stoplight Activity Restrictions/Additional Instructions: - Please take Plavix, Eliquis as prescribed, do not stop taking these medicatio ns as these are keeping her stent open, ? If you have any recurrent chest pain please go to emergency room, ? Please follow-up with your primary care provider about blood pressure monitoring, weight loss strategies Discharge Attestations Time Spent in Discharge Care*: greater than 30 min Status at Discharge: Cognitive status at discharge: cognitively intact , Behavioral status at discharge: can be uncooperative , Quality Metrics Clinical Quality Measures [ Acute Myocardial Infaction { Clinical Trial Participant: No; Contraindication to aspirin: None; Aspirin prescribed; Contraindication to statin: None; Statin prescribed;}] Coding Level of Care Code 26875 Total time (in minutes) for Discharge: 45 Diagnoses Non-ST elevated myocardial infarction (non-STEMI) I21.4 Hypertensive urgency I16.0 Pulmonary embolism I26.99 Positive cardiac stress test R94.39 CAD (coronary artery disease) I25.10 Diastolic CHF I50.30 COPD (chronic obstructive pulmonary disease) J44.9 Type 2 diabetes mellitus E11.9 Sinus node dysfunction I49.5 Hemochromatosis E83.119 Chest pain R07.9
--- NOTE | 2023-02-10 11:13 | PC.SOCIAL ---
Case Managment Patient has DC orders and CM has seen patient up ambulating in [place] w/ O2. CM to room and spoke to patient she reports she has transportation home and she wears O2 @ home and does have a tank w/ her for transport home.
--- NOTE | 2023-02-10 17:16 | PM.PN ---
Subjective Subjective: Patient underwent cardiac catheterization followed by PCI of the mid RCA lesion. She seems to be doing okay with no recurrence of chest pain or shortness of breath. Vital signs remained stable. No hematoma bleeding right groin. Vitals/I&O/Wt Last Vital Signs Temp 98.9 F 02/10/23 04:00 Pulse 68 02/10/23 12:09 Resp 20 H 02/10/23 08:00 BP 132/91 02/10/23 10:00 Pulse Ox 94 02/10/23 08:00 O2 Del Method Nasal Cannula 02/10/23 08:00 O2 Flow Rate 2 02/10/23 08:00 02/10/23 02/10/23 02/10/23 06:59 14:59 22:59 Intake Total 300 / 1123.25 200 / 200 Output Total 400 / 450 Balance -100 / 673.25 200 / 200 Weight last 48 hrs Weight 211 lb Weight 211 lb 9.6 oz Physical Exam Narrative: GENERAL: The patient is alert and oriented times three. Not in any acute distress. [] HEENT: No significant pallor, icterus or lymphadenopathy.Oral cavity: There are no mucous membrane lesions. NECK: Trachea appears to be central. No masses noted. No JVD or thyromegaly appreciated. RESPIRATORY: Chest is symmetrical. No intercostals muscle retraction or any accessory muscle activation. There is no chest wall tenderness. Breath sounds are heard bilaterally. No rales or rhonchi heard. No evidence of any consolidation. [] BREASTS: Deferred. HEART: The heart sounds are normal. No S3 or S4. No significant murmurs. No pericardial rub ABDOMEN: No vessel pulsations or distention. No tenderness. No organomegaly appreciated. Bowel sounds are normally heard. : Deferred. RECTAL: Deferred. LYMPHATIC: No lymphadenopathy noted in the neck. EXTREMITIES: No edema or cyanosis. No clubbing. MUSCULOSKELETAL: No acute joint deformities or swelling SKIN: There are no significant rashes or ecchymosis NEUROPSYCHIATRIC: The patient is alert and oriented x3. Appears to be in a good mood. No tremors or rigidity noted. Data 02/10/23 05:10 02/10/23 05:10 Other Labs: Laboratory Last Values WBC 6.18 10^3/uL (3.29-11.43) 02/10/23 05:10 RBC 3.61 10^6/uL (3.85-5.65) L 02/10/23 05:10 Hgb 12.40 g/dL (11.27-16.99) 02/10/23 05:10 Hct 37.4 % (36-47) 02/10/23 05:10 MCV 103.6 fl (85-98) H 02/10/23 05:10 MCH 34.3 pg (27-33) H 02/10/23 05:10 MCHC 33.2 g/dL (30-55) 02/10/23 05:10 RDW 14.3 % (12.1-15.1) 02/10/23 05:10 Plt Count 160 10^3/cmm (157-399) 02/10/23 05:10 MPV 10.1 fL (7.4-10.4) 02/10/23 05:10 Neut % (Auto) 77.7 % 02/10/23 05:10 Lymph % (Auto) 12.5 % 02/10/23 05:10 [place] % (Auto) 6.6 % 02/10/23 05:10 Eos % (Auto) 1.8 % 02/10/23 05:10 Baso % (Auto) 0.3 % 02/10/23 05:10 Neut # (Auto) 4.80 10^3/uL (1.8-7.7) 02/10/23 05:10 Lymph # (Auto) 0.8 10^3/uL (0.8-4.8) 02/10/23 05:10 [place] # (Auto) 0.4 10^3/uL (0.2-0.9) 02/10/23 05:10 Eos # (Auto) 0.1 10^3/uL (0.0-0.8) 02/10/23 05:10 Baso # (Auto) 0.0 10^3/uL (0.0-0.1) 02/10/23 05:10 Nucleated RBC % (auto) 0 % 02/10/23 05:10 Nucleated RBCs # 0.0 /100WBC 02/10/23 05:10 PT 14.40 SECONDS (12.1-14.9) 02/07/23 20:03 INR 1.08 (0.8-1.2) 02/07/23 20:03 APTT 62.2 SECONDS (23.9-36.7) H 02/09/23 07:08 Sodium 138 mmol/L (136-145) 02/10/23 05:10 Potassium 3.4 mmol/L (3.5-5.1) L 02/10/23 05:10 Chloride 102 mmol/L (98-107) 02/10/23 05:10 Carbon Dioxide 25 mmol/L (22-29) 02/10/23 05:10 Anion Gap 14.4 (5-19) 02/10/23 05:10 BUN 10 mg/dL (6-20) 02/10/23 05:10 Creatinine 0.6 mg/dL (0.5-0.9) 02/10/23 05:10 GFR Calculation 103.0 mL/min (90-130) 02/10/23 05:10 Glucose 113 mg/dL (65-115) 02/10/23 05:10 POC Glucose 153 mg/dL (70-110) H 02/10/23 08:35 Calculated Osmolality 286 mOsm/kg (285-295) 02/10/23 05:10 Calcium 9.2 mg/dL (8.5-10.5) 02/10/23 05:10 Phosphorus 2.3 mg/dL (2.5-4.5) L 02/10/23 05:10 Magnesium 1.9 mg/dL (1.7-2.3) 02/10/23 05:10 Total Bilirubin 0.5 mg/dL (0.15-1.2) 02/10/23 05:10 AST 17 U/L (0-32) 02/10/23 05:10 ALT 21 U/L (0-33) 02/10/23 05:10 Alkaline Phosphatase 89 U/L (35-105) 02/10/23 05:10 Troponin T Baseline 186 ng/L (0-10) H* 02/07/23 20:03 Troponin T 120 Minute 202.3 ng/L (0-10) H 02/07/23 23:02 Delta Troponin T 16.3 ABS# (0-10) H* 02/07/23 23:02 Troponin T Hi Sens 6Hr 190.8 ng/L (0-10) H 02/08/23 03:53 Troponin T Hi Sens 6Hr Delta 4.8 ng/L (0-12) 02/08/23 03:53 NT-Pro-B Natriuret Pep 1109 pg/mL (0-125) H 02/10/23 05:10 Total Protein 7.1 g/dL (6.6-8.7) 02/10/23 05:10 Albumin 3.6 g/dL (3.5-5.2) 02/10/23 05:10 Globulin 3.5 g/dL (1.3-4.6) 02/10/23 05:10 Urine Color Yellow (Yellow) 02/08/23 02:00 Urine Appearance Hazy (CLEAR) A 02/08/23 02:00 Urine pH 6 (5-7) 02/08/23 02:00 Ur Specific [place] 1.020 (1.005-1.030) 02/08/23 02:00 Urine Protein Neg (Negative) 02/08/23 02:00 Urine Glucose (UA) Norm (Normal) 02/08/23 02:00 Urine Ketones Negative (Negative) 02/08/23 02:00 Urine Blood Trace (Negative) H 02/08/23 02:00 Urine Nitrate Negative (Negative) 02/08/23 02:00 Urine Bilirubin Neg (Negative) 02/08/23 02:00 Urine Urobilinogen Neg mg/dL (Negative) 02/08/23 02:00 Ur Leukocyte Esterase Negative (Negative) 02/08/23 02:00 Urine RBC Rare /hpf (0-2) 02/08/23 02:00 Urine WBC Rare /hpf (0-5) 02/08/23 02:00 Ur Squamous Epith Cells Rare /hpf (0-5) 02/08/23 02:00 Amorphous Sediment 2+ /hpf 02/08/23 02:00 Urine Bacteria None /hpf (NONE) 02/08/23 02:00 A&P Assessment and plan (1) Non-ST elevated myocardial infarction (non-STEMI): Patient status postcardiac catheterization followed by PCI of the mid RCA lesion. Currently remaining stable. May continue on the current medications. (2) Sinus node dysfunction: Patient has a history of sinus node dysfunction and symptomatic bradycardia. Has not had a recurrence lately. At this point, we may continue to closely monitor hold off on any specific intervention (3) Pulmonary embolism: Patient may be started on the long-term oral anticoagulation, Eliquis by tomorrow (4) Type 2 diabetes mellitus: Continue on the current treatment. Close monitoring of the blood sugar and appropriate treatment, as per the primary attending. (5) Atherosclerotic heart disease of [place] coronary artery with unstable angina pectoris: Repeat angiogram findings please refer to the report from 02/09/2023. Plan Other problems are History of pulmonary embolism Sleep apnea COPD If she continues to remain stable, may be discharged home today. May continue on the current medications Hold metformin for 3 days Restart Eliquis tomorrow Appointment the [facility] to be seen by the nurse practitioner next week Appointment with me in the office in 1 month Attestations Medical Necessity Statement*: Disposition as per the primary Coding Level of Care Code 16588 Diagnoses Non-ST elevated myocardial infarction (non-STEMI) I21.4 Sinus node dysfunction I49.5 Pulmonary embolism I26.99 Type 2 diabetes mellitus E11.9 Atherosclerotic heart disease of [place] coronary artery with unstable angina pectoris I25.110
== END 2023-02-10 12:13 | disposition home or self-care (01) | DRG 322 ==
LOC: ER 22:11 → CSU 22:52 → ICU 23:23
PROVIDERS: Internal Medicine Cardiovascular Disease; Admitting Provider Student in an Organized Health Care Education/Training Program; Emergency Provider Internal Medicine; PCP Family Medicine; Visit Provider Family Medicine
PROC: 027034Z Dilation of Coronary Artery, One Artery with Drug-eluting Intraluminal Device, Percutaneous Approach (ICD-10-PCS; principal; 2023-02-09 12:00)
PROC: 027034Z Dilation of Coronary Artery, One Artery with Drug-eluting Intraluminal Device, Percutaneous Approach (ICD-10-PCS; 2023-02-09 12:00)
DX: I21.4 Non-ST elevation (NSTEMI) myocardial infarction (principal); I50.30 Unspecified diastolic (congestive) heart failure; I25.110 Atherosclerotic heart disease of native coronary artery with unstable angina pectoris; I49.5 Sick sinus syndrome; E11.9 Type 2 diabetes mellitus without complications; G47.30 Sleep apnea, unspecified; J44.9 Chronic obstructive pulmonary disease, unspecified; I16.0 Hypertensive urgency; I11.0 Hypertensive heart disease with heart failure; E83.119 Hemochromatosis, unspecified; K74.60 Unspecified cirrhosis of liver; Z95.5 Presence of coronary angioplasty implant and graft; Z86.711 Personal history of pulmonary embolism; Z79.84 Long term (current) use of oral hypoglycemic drugs; Z79.02 Long term (current) use of antithrombotics/antiplatelets; Z79.85 Long-term (current) use of injectable non-insulin antidiabetic drugs; Z90.10 Acquired absence of unspecified breast and nipple; Z85.3 Personal history of malignant neoplasm of breast; Z85.89 Personal history of malignant neoplasm of other organs and systems; Z92.3 Personal history of irradiation; Z92.21 Personal history of antineoplastic chemotherapy; Z87.891 Personal history of nicotine dependence
CPT/HCPCS: 36415; 36416; 71045; 80053; 81001; 81015; 82962; 83735; 83880; 84100; 84484; 85025; 85610; 85730; 93005; 93306; 93454; 94664; 96365; 96372; 96375; 96376; 99152; 99153; 99285; C1725; C1760; C1769; C1874; C1887; C1894; C9600; CATH; J1170; J1644; J1815; J2250; J2270; J2405; J3010; J3490; J7030; Q9967

== ENCOUNTER → 2023-02-17 08:15 | Outpatient (BNVA) | payer MEDICAID, SELFPAY | PROVIDERS: PCP Family Medicine; Visit Provider Surgery | DX: Z95.828 Presence of other vascular implants and grafts (principal) | CPT/HCPCS: 99213 ==

== ENCOUNTER 2023-03-01 01:55 | Emergency (ER) | payer MEDICAID, SELFPAY ==
[2023-03-01 02:07] VITALS: BP 166/98; PULSE 88; RESP 16; TEMP 36.7; O2SAT 96
[2023-03-01 03:37] VITALS: RESP 20; O2SAT 99
[2023-03-01] MEDS: HYDROmorphone 1 mg/mL INJ 1 mL 2 MG IM (03:37)
[2023-03-01] MEDS: ondansetron 4 MG Tablet PO (03:38)
[2023-03-01 04:24] VITALS: BP 196/98; PULSE 88; RESP 18; O2SAT 97
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
== END 2023-03-01 04:21 | disposition home or self-care (01) ==
PROVIDERS: Emergency Provider Emergency Medicine; PCP Family Medicine
DX: R10.2 Pelvic and perineal pain (principal)
CPT/HCPCS: 96372; 99284; J1170; Q0162

== ENCOUNTER 2023-03-28 15:33 | Emergency (ER) | payer MEDICAID, SELFPAY ==
[2023-03-28 15:34] VITALS: BMI 33.6
[2023-03-28 15:41] VITALS: BP 134/93; PULSE 76; RESP 23
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
[2023-03-28 15:57] VITALS: RESP 21; O2SAT 95
[2023-03-28] MEDS: fentaNYL 50 mcg/mL INJ 2mL IVP ×2 (15:57→17:04)
--- NOTE | 2023-03-28 16:11 | ECG_ITS ---
[facility] Test Date: 2023-03-28 Pat Name: Le Barnhart Department: Room: Gender: Female Patient Liaison: : 1965 Requested By: Ernesto Barnes Order Number: [id number] Jessica MD: David Escalante M.D. Measurements Intervals [place] Rate: 82 P: 62 LA: 157 QRS: 78 QRSD: 94 T: -46 QT: 385 QTc: 451 Interpretive Statements SINUS RHYTHM POSSIBLE INFERIOR MYOCARDIAL INFARCTION , OF INDETERMINATE AGE [30 ms Q WAVE IN II/aVF] MODERATE T-WAVE ABNORMALITY, CONSIDER LATERAL ISCHEMIA [-0.1+ mV T-WAVE IN I/aVL/V5/V6] Compared to ECG 02/08/2023 01:36:00 Myocardial infarct finding now present Possible ischemia now present Ventricular premature complex(es) no longer present T-wave abnormality still present Electronically Signed On 03-29-2023 16:25:34 HISTORIAN DRAMATIC ARTS by David Escalante M.D. [id number] f
[2023-03-28] MEDS: iohexol 350 mg/mL 500 mL Btl (per mL) IV (16:17)
[2023-03-28 16:48] VITALS: BP 131/86; PULSE 81; RESP 17; O2SAT 96
[2023-03-28 16:58] LABS: Basophils % 0.2 %; Eosinophils # 0.1 10^3/uL (0.0-0.8); Eosinophils % 0.6 %; Lymphocytes # 0.8 10^3/uL (0.8-4.8); Lymphocytes % 9.3 %; Mean Corpuscular HGB Conc 33.2 g/dL (30-55); Mean Corpuscular Hemoglobin 33.6 pg (27-33); Mean Corpuscular Volume 101.1 fl (85-98); Mean Platelet Volume 9.5 fL (7.4-10.4); Monocytes # 0.4 10^3/uL (0.2-0.9); Monocytes % 5.4 %; Neutrophils # 6.89 10^3/uL (1.8-7.7); Neutrophils % 84.1 %; Nucleated Red Blood Cells % 0 %; Platelet Count 145 10^3/cmm (157-399); Red Blood Count 3.66 10^6/uL (3.85-5.65); Red Cell Distribution Width 14.6 % (12.1-15.1); White Blood Count 8.19 10^3/uL (3.29-11.43)
[2023-03-28 17:04] VITALS: RESP 18
[2023-03-28] MEDS: tranexamic acid 1,000 MG/100 ML PREMIX 600 MG IV (17:05)
[2023-03-28 17:18] LABS: Alanine Aminotransferase 49 U/L (0-33); Albumin Level 3.3 g/dL (3.5-5.2); Alkaline Phosphatase 91 U/L (35-105); Aspartate Amino Transferase 68 U/L (0-32); Blood Urea Nitrogen 16 mg/dL (6-20); Calcium 8.9 mg/dL (8.5-10.5); Carbon Dioxide 27 mmol/L (22-29); Chloride 99 mmol/L (98-107); Globulin 2.9 g/dL (1.3-4.6); Glomerular Filtration Rate 64.5 mL/min (90-130); Glucose 171 mg/dL (65-115); Osmolality Calculated 285 mOsm/kg (285-295); Sodium 135 mmol/L (136-145); Total Bilirubin 0.2 mg/dL (0.15-1.2); Total Protein 6.2 g/dL (6.6-8.7)
[2023-03-28 17:33] VITALS: BP 121/84; PULSE 78; RESP 21; O2SAT 94
== END 2023-03-28 17:37 | disposition short-term general hospital (02) ==
PROVIDERS: Emergency Provider Family Medicine; PCP Family Medicine
DX: S06.5XAA Traumatic subdural hemorrhage with loss of consciousness status unknown, initial encounter (principal); S36.032A Major laceration of spleen, initial encounter; S27.0XXA Traumatic pneumothorax, initial encounter; S12.690A Other displaced fracture of seventh cervical vertebra, initial encounter for closed fracture; S22.32XA Fracture of one rib, left side, initial encounter for closed fracture; Z87.891 Personal history of nicotine dependence; E11.9 Type 2 diabetes mellitus without complications; I25.10 Atherosclerotic heart disease of native coronary artery without angina pectoris; J44.9 Chronic obstructive pulmonary disease, unspecified; I10 Essential (primary) hypertension; V89.2XXA Person injured in unspecified motor-vehicle accident, traffic, initial encounter
CPT/HCPCS: 36415; 70450; 71260; 72125; 73030; 73090; 74177; 80053; 85025; 86850; 86900; 93005; 99291; 99292; J3010; Q9967

== ENCOUNTER 2023-04-11 14:45 | Emergency (ER) | payer MEDICAID, SELFPAY ==
[2023-04-11 14:54] VITALS: BP 148/88; PULSE 71; RESP 15; TEMP 36.8; O2SAT 91
[2023-04-11 15:54] VITALS: RESP 15; O2SAT 93
[2023-04-11] MEDS: morphine 4 mg/mL SDV 1 mL IVP (15:54)
[2023-04-11] MEDS: metoclopramide 5 mg/mL SDV 2 mL 10 MG IVP (15:56)
[2023-04-11 15:57] VITALS: BP 155/64; PULSE 69; O2SAT 92
[2023-04-11 16:30] VITALS: BP 146/75; PULSE 72; O2SAT 92
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
[2023-04-11 17:00] VITALS: BP 148/64; PULSE 71; O2SAT 93
--- NOTE | 2023-04-11 17:10 | ECG_ITS ---
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 Measurements Intervals [place] Rate: 76 P: 35 DC: 146 QRS: 64 QRSD: 88 T: -2 QT: 364 QTc: 410 Interpretive Statements SINUS RHYTHM WITH OCCASIONAL VENTRICULAR PREMATURE COMPLEXES NONSPECIFIC T-WAVE ABNORMALITY Compared to ECG 03/28/2023 16:50:34 Ventricular premature complex(es) now present Myocardial infarct finding no longer present Possible ischemia no longer present T-wave abnormality still present Electronically Signed On 04-12-2023 8:30:42 COMIC BOOK ARTIST by Jonny Zimmerman M.D. [id number]
[2023-04-11 17:20] LABS: Basophils % 0.4 %; Eosinophils # 0.1 10^3/uL (0.0-0.8); Eosinophils % 0.6 %; Lymphocytes # 0.8 10^3/uL (0.8-4.8); Lymphocytes % 8.4 %; Mean Corpuscular HGB Conc 30.8 g/dL (30-55); Mean Corpuscular Hemoglobin 32.4 pg (27-33); Mean Corpuscular Volume 105.1 fl (85-98); Mean Platelet Volume 10.5 fL (7.4-10.4); Monocytes # 0.8 10^3/uL (0.2-0.9); Monocytes % 8.6 %; Neutrophils # 7.65 10^3/uL (1.8-7.7); Neutrophils % 81.4 %; Nucleated Red Blood Cells % 0.2 %; Platelet Count 339 10^3/cmm (157-399); Red Blood Count 3.52 10^6/uL (3.85-5.65); Red Cell Distribution Width 15.4 % (12.1-15.1); White Blood Count 9.41 10^3/uL (3.29-11.43)
[2023-04-11] MEDS: acetaminophen 1,000 MG/100 ML PIGGYBACK 400 MG IV (17:25)
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
[2023-04-11 17:34] LABS: Alanine Aminotransferase 21 U/L (0-33); Albumin Level 3.3 g/dL (3.5-5.2); Alkaline Phosphatase 131 U/L (35-105); Anion Gap 18.3 (5-19); Aspartate Amino Transferase 20 U/L (0-32); Blood Urea Nitrogen 16 mg/dL (6-20); Calcium 9.6 mg/dL (8.5-10.5); Carbon Dioxide 27 mmol/L (22-29); Chloride 99 mmol/L (98-107); Globulin 3.4 g/dL (1.3-4.6); Glucose 142 mg/dL (65-115); Osmolality Calculated 294 mOsm/kg (285-295); Potassium 4.3 mmol/L (3.5-5.1); Sodium 140 mmol/L (136-145); Total Bilirubin 0.6 mg/dL (0.15-1.2); Total Protein 6.7 g/dL (6.6-8.7); Troponin(5th) Baseline 26 ng/L (0-10)
[2023-04-11 18:00] VITALS: BP 125/52; PULSE 67; O2SAT 93
[2023-04-11 18:34] LABS: Troponin 5 2HR 24.84 ng/L (0-10)
[2023-04-11 18:35] LABS: Troponin 5 2HR Delta -1.16 ABS# (0-10)
--- NOTE | 2023-04-11 18:44 | ECG_ITS ---
[facility] Test Date: 2023-04-11 Pat Name: Le Barnhart Department: Room: Gender: Female Bank Operations Officer: : 1965 Requested By: Amira Palmer Order Number: [id number] Jessica MD: Jonny Zimmerman M.D. Measurements Intervals [place] Rate: 70 P: 12 NE: 141 QRS: 60 QRSD: 89 T: -12 QT: 386 QTc: 417 Interpretive Statements SINUS RHYTHM NONSPECIFIC T-WAVE ABNORMALITY Compared to ECG 04/11/2023 17:10:21 Ventricular premature complex(es) no longer present T-wave abnormality still present Electronically Signed On 04-12-2023 8:37:26 CLOUD AUTOMATION TESTER by Jonny Zimmerman M.D. [id number]
[2023-04-11] MEDS: ketorolac 30 mg/mL INJ 15 MG IVP (19:32)
[2023-04-11] MEDS: gabapentin 300 mg Capsule PO (19:34)
== END 2023-04-11 19:49 | disposition home or self-care (01) ==
PROVIDERS: Emergency Provider Physician Assistant; PCP Family Medicine
DX: S22.42XA Multiple fractures of ribs, left side, initial encounter for closed fracture (principal); J90 Pleural effusion, not elsewhere classified; Z79.01 Long term (current) use of anticoagulants; Z79.84 Long term (current) use of oral hypoglycemic drugs; Z87.891 Personal history of nicotine dependence; E11.9 Type 2 diabetes mellitus without complications; I25.10 Atherosclerotic heart disease of native coronary artery without angina pectoris; J44.9 Chronic obstructive pulmonary disease, unspecified; I10 Essential (primary) hypertension; V89.2XXA Person injured in unspecified motor-vehicle accident, traffic, initial encounter
CPT/HCPCS: 71045; 73020; 80053; 84484; 85025; 93005; 96374; 96375; 99285; J0131; J1885; J2270; J2765

== ENCOUNTER 2023-04-21 17:42 | Emergency (ER) | payer MEDICAID, SELFPAY ==
[2023-04-21 17:42] VITALS: BP 131/67; PULSE 99; RESP 18; TEMP 36.8; O2SAT 90; BMI 33.4
--- NOTE | 2023-04-21 17:55 | ECG_ITS ---
[facility] Test Date: 2023-04-21 Pat Name: Le Barnhart Department: Room: Gender: Female Hr Operations Advisor: : 1965 Requested By: Jonathan Rice Order Number: [id number] Jessica MD: David Escalante M.D. Measurements Intervals [place] Rate: 97 P: 35 AL: 164 QRS: 64 QRSD: 81 T: -12 QT: 312 QTc: 397 Interpretive Statements SINUS RHYTHM POSSIBLE LEFT ATRIAL ENLARGEMENT [-0.1mV P-WAVE IN V1/V2] NONSPECIFIC T-WAVE ABNORMALITY Compared to ECG 04/11/2023 18:44:38 No significant changes Electronically Signed On 04-21-2023 18:28:34 MECHANICAL RESEARCH ENGINEER by Daivd Esclaante M.D. [id number]
--- NOTE | 2023-04-21 17:55 | XRR_ITS ---
PROCEDURE INFORMATION: Exam: XR Chest Exam date and time: 04/21/2023 6:04 PM Age: 57 years old Clinical indication: Chest wall pain; Additional info: Cp TECHNIQUE: Imaging protocol: Radiologic exam of the chest. Views: 1 view. COMPARISON: CR XR chest 1V [id number] 04/11/2023 5:26 PM FINDINGS: Lungs: Left basilar opacity. Pleural spaces: Small volume left pleural effusion. No pneumothorax. Heart/Mediastinum: Mild cardiomegaly. Bones/joints: ACDF hardware noted in the cervical spine. Visualized osseous structures are intact. XR/XR chest 1V portable [id number] IMPRESSION: Small volume left pleural effusion with left basilar opacity most likely atelectasis.
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
[2023-04-21 18:23] VITALS: RESP 17; O2SAT 96
[2023-04-21] MEDS: ondansetron 2 mg/ML SDV 2 mL 4 MG IVP (18:23)
[2023-04-21] MEDS: morphine 4 mg/mL SDV 1 mL IVP (18:23)
[2023-04-21 18:47] LABS: Basophils % 0.5 %; Eosinophils # 0.2 10^3/uL (0.0-0.8); Eosinophils % 2.3 %; Lymphocytes # 1.2 10^3/uL (0.8-4.8); Lymphocytes % 18.2 %; Mean Corpuscular HGB Conc 30.8 g/dL (30-55); Mean Corpuscular Hemoglobin 32.2 pg (27-33); Mean Corpuscular Volume 104.5 fl (85-98); Mean Platelet Volume 10.1 fL (7.4-10.4); Monocytes # 0.7 10^3/uL (0.2-0.9); Monocytes % 10.8 %; Neutrophils # 4.46 10^3/uL (1.8-7.7); Neutrophils % 67.7 %; Nucleated Red Blood Cells % 0 %; Platelet Count 248 10^3/cmm (157-399); Red Blood Count 3.54 10^6/uL (3.85-5.65); Red Cell Distribution Width 16.2 % (12.1-15.1); White Blood Count 6.58 10^3/uL (3.29-11.43)
[2023-04-21 19:01] LABS: Troponin(5th) Baseline 15 ng/L (0-10)
[2023-04-21 19:21] LABS: Alanine Aminotransferase 79 U/L (0-33); Albumin Level 3.4 g/dL (3.5-5.2); Alkaline Phosphatase 233 U/L (35-105); Anion Gap 14.1 (5-19); Aspartate Amino Transferase 27 U/L (0-32); Blood Urea Nitrogen 13 mg/dL (6-20); Calcium 9.1 mg/dL (8.5-10.5); Carbon Dioxide 26 mmol/L (22-29); Chloride 106 mmol/L (98-107); Glomerular Filtration Rate 127.2 mL/min (90-130); Glucose 90 mg/dL (65-115); Osmolality Calculated 294 mOsm/kg (285-295); Potassium 4.1 mmol/L (3.5-5.1); Sodium 142 mmol/L (136-145); Total Bilirubin 0.2 mg/dL (0.15-1.2); Total Protein 6.4 g/dL (6.6-8.7)
[2023-04-21 19:47] VITALS: BP 122/69; PULSE 93; RESP 25; O2SAT 93
--- NOTE | 2023-04-21 19:55 | ECG_ITS ---
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 Measurements Intervals [place] Rate: 85 P: 37 SD: 161 QRS: 57 QRSD: 85 T: -22 QT: 332 QTc: 396 Interpretive Statements SINUS RHYTHM WITH OCCASIONAL SUPRAVENTRICULAR PREMATURE COMPLEXES NONSPECIFIC ST & T-WAVE ABNORMALITY Compared to ECG 04/21/2023 17:47:03 No significant changes Electronically Signed On 04-22-2023 18:36:07 PSYCHOLOGY TECHNICIAN by David Escalante M.D. [email or web address]
[2023-04-21 20:36] LABS: Troponin 5 2HR 17.16 ng/L (0-10); Troponin 5 2HR Delta 2.16 ABS# (0-10)
[2023-04-21 21:22] VITALS: PULSE 83; RESP 22; O2SAT 93
== END 2023-04-21 21:23 | disposition home or self-care (01) ==
PROVIDERS: Emergency Provider Emergency Medicine; PCP Family Medicine
DX: R07.9 Chest pain, unspecified (principal); Z99.81 Dependence on supplemental oxygen; E11.9 Type 2 diabetes mellitus without complications; I25.10 Atherosclerotic heart disease of native coronary artery without angina pectoris; J44.9 Chronic obstructive pulmonary disease, unspecified; I10 Essential (primary) hypertension; Z87.891 Personal history of nicotine dependence
CPT/HCPCS: 36415; 71045; 80053; 84484; 85025; 93005; 96374; 96375; 99285; J2270; J2405

== ENCOUNTER 2023-04-22 03:03 | Emergency (ER) | payer MEDICAID, SELFPAY ==
[2023-04-22 03:16] VITALS: BP 170/91; PULSE 101; RESP 20; TEMP 36.6; O2SAT 93; BMI 31.4
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
[2023-04-22] MEDS: ketorolac 60 mg/2 mL INJ IM (03:43)
[2023-04-22] MEDS: orphenadrine 30 mg/mL Inj 2 mL 60 MG IM (03:43)
[2023-04-22] MEDS: TRAMadol 50 mg Tablet PO ×2 (04:37→04:38)
[2023-04-22 04:43] VITALS: BP 170/91; PULSE 101; RESP 20; TEMP 36.6; O2SAT 93
== END 2023-04-22 04:44 | disposition home or self-care (01) ==
PROVIDERS: Emergency Provider Emergency Medicine; PCP Family Medicine
DX: M25.512 Pain in left shoulder (principal); Z79.84 Long term (current) use of oral hypoglycemic drugs; Z79.01 Long term (current) use of anticoagulants; Z87.891 Personal history of nicotine dependence; E11.9 Type 2 diabetes mellitus without complications; I25.10 Atherosclerotic heart disease of native coronary artery without angina pectoris; J44.9 Chronic obstructive pulmonary disease, unspecified; I10 Essential (primary) hypertension
CPT/HCPCS: 96372; 99284; J1885; J2360

== ENCOUNTER 2023-04-25 20:02 | Emergency (ER) | payer MEDICAID, SELFPAY ==
[2023-04-25 20:05] VITALS: BP 161/95; PULSE 99; RESP 18; TEMP 36.8; O2SAT 92; BMI 34.1
[2023-04-25] MEDS: orphenadrine 30 mg/mL Inj 2 mL 60 MG IM (21:14)
[2023-04-25] MEDS: oxyCODONE-APAP 5-325 mg Tablet 1 TAB PO (21:14)
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
== END 2023-04-25 22:09 | disposition home or self-care (01) ==
PROVIDERS: Emergency Provider Nurse Practitioner; PCP Family Medicine
DX: S42.302A Unspecified fracture of shaft of humerus, left arm, initial encounter for closed fracture (principal); Z79.01 Long term (current) use of anticoagulants; Z79.84 Long term (current) use of oral hypoglycemic drugs; E11.9 Type 2 diabetes mellitus without complications; I25.10 Atherosclerotic heart disease of native coronary artery without angina pectoris; J44.9 Chronic obstructive pulmonary disease, unspecified; I10 Essential (primary) hypertension; Z87.891 Personal history of nicotine dependence; V89.2XXA Person injured in unspecified motor-vehicle accident, traffic, initial encounter
CPT/HCPCS: 96372; 99284; J2360

== ENCOUNTER 2023-04-26 10:45 | Emergency (ER) | payer MEDICAID, SELFPAY ==
[2023-04-26 10:48] VITALS: BP 172/102; PULSE 94; RESP 18; TEMP 36.4; O2SAT 93; BMI 34.7
--- NOTE | 2023-04-26 11:05 | CTR_ITS ---
PROCEDURE INFORMATION: Exam: CT Cervical Spine Without Contrast Exam date and time: 04/26/2023 11:49 AM Age: 57 years old Clinical indication: Injury or trauma; Fall; Blunt trauma; Prior surgery; Surgery date: 6+ months; Surgery type: Cervical fusion; Additional info: Trauma/fall TECHNIQUE: Imaging protocol: Computed tomography of the cervical spine without contrast. Radiation optimization: All CT scans at this facility use at least one of these dose optimization techniques: automated exposure control; mA and/or kV adjustment per patient size (includes targeted exams where dose is matched to clinical indication); or iterative reconstruction. COMPARISON: CT cervical spin wo con* [id number] 03/28/2023 4:06 PM RADIATION DOSE METRICS: Total DLP (mGy-cm): 633.7 FINDINGS: Bones/joints: No acute fracture. Fracture of left 1st rib medially and 2nd and 3rd rib posteriorly, chronic fracture. Chronic fracture spinous process of C7 vertebra again noted. Anterior hardware fusion C5 and C6 with bony fusion of vertebral bodies noted. Broad-based disc spur complex at C3-C4 level with minimal mass effect on ventral thecal sac. Minimal uncovertebral joint hypertrophy at C4-C5 level causing minimal bilateral neural foraminal narrowing. Minimal bilateral neural foraminal narrowing also noted at C6-C7 level. Small focal osteopenia in left aspect body of C4 vertebra is stable, measures 5 mm. Lungs: Diffuse pleural thickening/pleural effusion in the visualized left upper chest. Ground-glass densities also noted in the visualized left apical lung. Soft tissues: Unremarkable. CT/CT cervical spin wo con* [id number] IMPRESSION: 1. No acute fracture or subluxation identified. 2. Chronic fracture spinous process of C7 vertebra, visualized left 1st 2nd and 3rd ribs. 3. Visualized left upper chest show pleural thickening/pleural effusion with ground-glass densities in the visualized lungs. Consider follow-up with CT chest.
--- NOTE | 2023-04-26 11:05 | XRR_ITS ---
PROCEDURE INFORMATION: Exam: XR Left Shoulder Exam date and time: 04/26/2023 11:17 AM Age: 57 years old Clinical indication: Injury or trauma; Fall; Blunt trauma (contusions or hematomas); Shoulder; Left; Additional info: Fall/pain TECHNIQUE: Imaging protocol: Radiologic exam of the left shoulder. Views: 2 or more views. COMPARISON: CR XR shoulder LT 1V [id number] 04/11/2023 5:26 PM FINDINGS: Bones/joints: No acute fracture or dislocation identified. Arthritic changes, mild acromioclavicular joint with a small osseous density overlapping distal acromion likely an accessory ossicle noted. Soft tissues: Normal. XR/XR shoulder LT min 2V* [id number] IMPRESSION: No acute findings.
--- NOTE | 2023-04-26 11:05 | CTR_ITS ---
PROCEDURE INFORMATION: Exam: CT Head Without Contrast Exam date and time: 04/26/2023 11:49 AM Age: 57 years old Clinical indication: Injury or trauma; Fall; Blunt trauma (contusions or hematomas); Additional info: Trauma/fall TECHNIQUE: Imaging protocol: Computed tomography of the head without contrast. Radiation optimization: All CT scans at this facility use at least one of these dose optimization techniques: automated exposure control; mA and/or kV adjustment per patient size (includes targeted exams where dose is matched to clinical indication); or iterative reconstruction. COMPARISON: CT head wo con* [id number] 03/28/2023 4:06 PM RADIATION DOSE METRICS: Total DLP (mGy-cm): 949.4 FINDINGS: Brain: Chronic subdural hematoma right frontoparietal area with areas of scattered hypodensities, superimposed acute hemorrhage can not be excluded. Maximum thickness of this fluid collection is 6 mm. No acute intraparenchymal hematoma identified. No midline shift. Cerebral ventricles: No ventriculomegaly. Paranasal sinuses: Visualized sinuses are unremarkable. No fluid levels. Mastoid air cells: Visualized mastoid air cells are well aerated. Bones/joints: Unremarkable. No acute fracture. Soft tissues: Unremarkable. CT/CT head wo con* [id number] IMPRESSION: Acute on chronic subdural hematoma in right frontoparietal convexity suspected. No midline shift. No significant mass effect. No acute intraparenchymal hemorrhage. Short-term follow-up recommended. THIS REPORT CONTAINS FINDINGS THAT MAY BE CRITICAL TO PATIENT CARE. The findings were verbally communicated via telephone conference with ARIANNA Macias at 12:14 PM ICT BUSINESS DEVELOPMENT MANAGER on 04/26/2023. The findings were acknowledged and understood.
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
--- NOTE | 2023-04-26 11:18 | XRR_ITS ---
PROCEDURE INFORMATION: Exam: XR Chest Exam date and time: 04/26/2023 11:50 AM Age: 57 years old Clinical indication: Dyspnea TECHNIQUE: Imaging protocol: Radiologic exam of the chest. Views: 2 views. COMPARISON: 1. CR (CHEST, ) 04/21/2023 6:04 PM 2. Portable 02/07/2023 FINDINGS: Lungs: Interval increased opacity over left hemithorax suggesting moderate left pleural effusion with atelectasis and/or infiltrate left lung appearing progressed, increased compared to 04/21/2023, 04/11/2023. Stable appearance of right lung. Pleural spaces: No large or obvious pneumothorax seen. Heart/Mediastinum: Heart size difficult to evaluate due to opacity obscuring the left heart margin, appears probably stable. Bones/joints: Postoperative changes cervical spine. XR/XR chest 2V* [id number] IMPRESSION: Interval increased opacity over left hemithorax suggesting moderate left pleural effusion with atelectasis and/or infiltrate left lung appearing progressed, increased compared to 04/21/2023, 04/11/2023.
[2023-04-26 11:23] VITALS: BP 158/133; PULSE 112; O2SAT 96
[2023-04-26 12:00] VITALS: BP 164/76; PULSE 93; O2SAT 97
[2023-04-26] MEDS: tranexamic acid 1,000 MG/100 ML PREMIX 600 MG IV (12:48)
[2023-04-26 13:22] LABS: Basophils % 0.6 %; Eosinophils # 0.3 10^3/uL (0.0-0.8); Eosinophils % 4.1 %; Hematocrit 38.5 % (36-47); Lymphocytes # 1.2 10^3/uL (0.8-4.8); Lymphocytes % 18.5 %; Mean Corpuscular HGB Conc 30.9 g/dL (30-55); Mean Corpuscular Hemoglobin 31.6 pg (27-33); Mean Corpuscular Volume 102.4 fl (85-98); Monocytes # 0.8 10^3/uL (0.2-0.9); Monocytes % 12.3 %; Neutrophils # 4.06 10^3/uL (1.8-7.7); Neutrophils % 64.2 %; Nucleated Red Blood Cells % 0 %; Platelet Count 250 10^3/cmm (157-399); Red Blood Count 3.76 10^6/uL (3.85-5.65); Red Cell Distribution Width 15.9 % (12.1-15.1); White Blood Count 6.33 10^3/uL (3.29-11.43)
[2023-04-26 13:33] LABS: INR 1.07 (0.8-1.2)
[2023-04-26 13:34] LABS: Partial Thromboplastin Time 32.7 SECONDS (23.9-36.7)
[2023-04-26 13:41] VITALS: BP 164/94; PULSE 94; O2SAT 96
[2023-04-26 13:42] LABS: Alanine Aminotransferase 32 U/L (0-33); Albumin Level 3.4 g/dL (3.5-5.2); Alkaline Phosphatase 177 U/L (35-105); Anion Gap 14.7 (5-19); Aspartate Amino Transferase 22 U/L (0-32); Blood Urea Nitrogen 10 mg/dL (6-20); Calcium 9.7 mg/dL (8.5-10.5); Carbon Dioxide 26 mmol/L (22-29); Chloride 105 mmol/L (98-107); Globulin 4.3 g/dL (1.3-4.6); Glomerular Filtration Rate 164.5 mL/min (90-130); Glucose 92 mg/dL (65-115); Osmolality Calculated 293 mOsm/kg (285-295); Potassium 3.7 mmol/L (3.5-5.1); Sodium 142 mmol/L (136-145); Total Bilirubin 0.2 mg/dL (0.15-1.2); Total Protein 7.7 g/dL (6.6-8.7)
== END 2023-04-26 14:39 | disposition short-term general hospital (02) ==
PROVIDERS: Emergency Provider Internal Medicine; PCP Family Medicine
DX: M25.512 Pain in left shoulder (principal); R51.9 Headache, unspecified; S06.30AA Unspecified focal traumatic brain injury with loss of consciousness status unknown, initial encounter; W01.0XXA Fall on same level from slipping, tripping and stumbling without subsequent striking against object, initial encounter; E11.9 Type 2 diabetes mellitus without complications; I25.10 Atherosclerotic heart disease of native coronary artery without angina pectoris; J44.9 Chronic obstructive pulmonary disease, unspecified; I10 Essential (primary) hypertension; Z87.891 Personal history of nicotine dependence
CPT/HCPCS: 70450; 71046; 72125; 73030; 80053; 85025; 85610; 85730; 96365; 99285

== ENCOUNTER 2023-04-27 11:02 | Emergency (ER) | payer MEDICAID, SELFPAY ==
[2023-04-27 11:38] VITALS: BP 140/69; PULSE 99; RESP 16; TEMP 36.9; O2SAT 91; BMI 34.7
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
[2023-04-27 12:06] VITALS: BP 153/88; PULSE 100; RESP 18; O2SAT 94
--- NOTE | 2023-04-27 12:17 | CTR_ITS ---
PROCEDURE INFORMATION: Exam: CT Head Without Contrast Exam date and time: 04/27/2023 1:40 PM Age: 57 years old Clinical indication: Other: Confusion; Additional info: Chronic subdural TECHNIQUE: Imaging protocol: Computed tomography of the head without contrast. Radiation optimization: All CT scans at this facility use at least one of these dose optimization techniques: automated exposure control; mA and/or kV adjustment per patient size (includes targeted exams where dose is matched to clinical indication); or iterative reconstruction. COMPARISON: CT head wo con* [id number] 04/26/2023 11:49 AM RADIATION DOSE METRICS: Total DLP (mGy-cm): 1078.08 FINDINGS: Brain: Stable right cerebral convexity small relatively hypoattenuating subdural fluid collection. Bilateral basilar forebrain benign prominent perivascular spaces redemonstrated. No contusion. No acute infarction. No mass. No intraparenchymal hemorrhage. Ventricles: No hydrocephalus or evidence of increased intracranial pressure. Paranasal sinuses: Visualized sinuses are unremarkable. No fluid levels. Mastoid air cells: Visualized mastoid air cells are well aerated. Bones/joints: No acute abnormality. No acute fracture. Soft tissues: Unremarkable. Vasculature: Atherosclerotic calcifications are present involving the carotid artery siphons bilaterally and the left vertebral artery. CT/CT head wo con* [id number] IMPRESSION: Stable right cerebral convexity small relatively hypoattenuating subdural fluid collection.
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
[2023-04-27] MEDS: HYDROcodone-acetaminophen 5-325 mg Tablet 1 TAB PO (13:20)
[2023-04-27 14:51] VITALS: PULSE 93; RESP 18; O2SAT 95
== END 2023-04-27 14:51 | disposition home or self-care (01) ==
PROVIDERS: Emergency Provider Family Medicine; PCP Family Medicine
DX: M25.551 Pain in right hip (principal); Z79.01 Long term (current) use of anticoagulants; Z79.84 Long term (current) use of oral hypoglycemic drugs; E11.9 Type 2 diabetes mellitus without complications; I25.10 Atherosclerotic heart disease of native coronary artery without angina pectoris; J44.9 Chronic obstructive pulmonary disease, unspecified; I10 Essential (primary) hypertension; Z87.891 Personal history of nicotine dependence
CPT/HCPCS: 70450; 73502; 99284

== ENCOUNTER 2023-05-01 12:04 | Emergency (ER) | payer MEDICAID, SELFPAY ==
[2023-05-01 12:19] VITALS: BP 156/78; PULSE 93; RESP 16; TEMP 36.6; O2SAT 95
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
[2023-05-01] MEDS: morphine 4 mg/mL SDV 1 mL IM (13:39)
== END 2023-05-01 13:45 | disposition home or self-care (01) ==
PROVIDERS: Emergency Provider Physician Assistant; PCP Family Medicine
DX: M25.512 Pain in left shoulder (principal); Z79.01 Long term (current) use of anticoagulants; Z79.84 Long term (current) use of oral hypoglycemic drugs; Z87.891 Personal history of nicotine dependence; E11.9 Type 2 diabetes mellitus without complications; I25.10 Atherosclerotic heart disease of native coronary artery without angina pectoris; J44.9 Chronic obstructive pulmonary disease, unspecified; I10 Essential (primary) hypertension
CPT/HCPCS: 96372; 99284; J2270

== ENCOUNTER 2023-05-04 17:28 | Emergency (ER) | payer MEDICAID, SELFPAY ==
[2023-05-04 17:32] VITALS: BP 142/99; PULSE 108; RESP 22; TEMP 36.7; O2SAT 90; BMI 34.3
--- NOTE | 2023-05-04 17:46 | XRR_ITS ---
PROCEDURE INFORMATION: Exam: XR Left Shoulder Exam date and time: 05/04/2023 6:06 PM Age: 57 years old Clinical indication: Pain; Shoulder; Left; Additional info: Fall, pain, recent injury TECHNIQUE: Imaging protocol: Radiologic exam of the left shoulder. Views: 2 or more views. COMPARISON: CR (CHEST, ) 04/26/2023 11:17 AM FINDINGS: Bones/joints: Glenohumeral joint osteophyte formation. Soft tissues: Normal. XR/XR shoulder LT min 2V* [id number] IMPRESSION: No acute or aggressive osseous abnormality.
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
[2023-05-04] MEDS: orphenadrine 30 mg/mL Inj 2 mL 60 MG IM (18:28)
== END 2023-05-04 19:31 | disposition home or self-care (01) ==
PROVIDERS: Emergency Provider Nurse Practitioner; PCP Family Medicine
DX: M25.512 Pain in left shoulder (principal); Z79.01 Long term (current) use of anticoagulants; Z79.84 Long term (current) use of oral hypoglycemic drugs; Z87.891 Personal history of nicotine dependence; E11.9 Type 2 diabetes mellitus without complications; I25.10 Atherosclerotic heart disease of native coronary artery without angina pectoris; J44.9 Chronic obstructive pulmonary disease, unspecified; I10 Essential (primary) hypertension
CPT/HCPCS: 73030; 96372; 99284; J2360

== ENCOUNTER 2023-05-08 16:51 | Emergency (ER) | payer MEDICAID, SELFPAY ==
--- NOTE | 2023-05-08 16:53 | XRR_ITS ---
PROCEDURE INFORMATION: Exam: XR Chest Exam date and time: 05/08/2023 5:20 PM Age: 57 years old Clinical indication: Shortness of breath; Additional info: SOB TECHNIQUE: Imaging protocol: Radiologic exam of the chest. Views: 1 view. COMPARISON: CR (CHEST, ) 04/26/2023 11:50 AM FINDINGS: Lungs: Unremarkable. No consolidation. Pleural spaces: Left lower lobe opacity consistent with pleural effusion. Findings are stable since prior. No pneumothorax. Heart/Mediastinum: Unremarkable. No cardiomegaly. Bones/joints: There is metallic hardware cervical spine stable since prior XR/XR chest 1V portable [id number] IMPRESSION: 1. Stable left lower lobe pleural effusion 2. Metallic hardware cervical spine. 3. Otherwise negative chest examination
[2023-05-08 17:14] VITALS: BP 141/79; PULSE 88; RESP 23; TEMP 36.8; O2SAT 91; BMI 32.5
--- NOTE | 2023-05-08 17:14 | ECG_ITS ---
[facility] Test Date: 2023-05-08 Pat Name: Le Barnhart Department: Room: Gender: Female Twister In: : 1965 Requested By: Jonathan Rice Order Number: [id number] Jessica MD: David Escalante M.D. Measurements Intervals [place] Rate: 101 P: 36 FL: 153 QRS: 61 QRSD: 92 T: 11 QT: 340 QTc: 441 Interpretive Statements SINUS TACHYCARDIA WITH OCCASIONAL SUPRAVENTRICULAR PREMATURE COMPLEXES NONSPECIFIC ST & T-WAVE ABNORMALITY ABNORMAL RHYTHM ECG Compared to ECG 04/21/2023 19:55:48 Sinus rhythm no longer present T-wave abnormality still present Electronically Signed On 05-08-2023 23:45:00 FITNESS TECHNICIAN by David Escalante M.D. [id number]
--- NOTE | 2023-05-08 17:47 | ED_ITS ---
HPI - SOB/Dyspnea General: Chief Complaint: Shortness of Breath/Dyspnea Stated Complaint: cough, sob Time Seen by Provider: 05/08/23 17:21 Source: patient Mode of arrival: ambulatory History of Present Illness: Associated symptoms: Deny abdominal pain, chest pain or fever(s) Review of Systems Const: Denies: fever(s) or chills Card: Denies: chest pain Resp: Denies: dyspnea GI: Denies: abdominal pain : Denies: dysuria, urinary frequency or urinary urgency Musc: Denies: neck pain or back pain Skin/Breast: Denies: rash PFSH ED PFSH: Medical History History of diabetes mellitus Sinus pause Hemochromatosis Atherosclerotic heart disease of [place] coronary artery with unstable angina pectoris CAD (coronary artery disease) COPD (chronic obstructive pulmonary disease) NSAID long-term use Smoking addiction Status post chemoradiation Vaginal tumors Nocturnal hypoxia Cirrhosis Chest pain Hypertension Surgical History Hx of appendectomy Hx of colonoscopy with polypectomy 10 yrs ago H/O vaginal surgery Family History Denies family history of Colon cancer Ovarian cancer Diabetes Heart disease Hypercholesteremia Breast cancer Hypertension Uterine cancer Thyroid disease Stroke Social History Smoking and tobacco/nicotine status: former use of tobacco/nicotine Quit status (tobacco/nicotine): has quit using Year quit tobacco: July 2022 Former quit date comment: smoked 47 years Alcohol intake: never Substance/Drug Use: never Lives independently: Yes Household members: significant other Marital status: Single Physical Exam Const: COMMON NORMALS: no acute distress GENERAL APPEARANCE: cooperative and comfortable ORIENTATION/CONSCIOUSNESS: Yes awake, Yes oriented to person, Yes oriented to place and Yes oriented to time HENMT: COMMON NORMALS: normocephalic, atraumatic and hearing grossly normal bilaterally HEAD & SCALP: normocephalic and atraumatic Resp: COMMON NORMALS: normal respiratory effort, No retractions, No use of accessory muscles and clear to auscultation bilaterally AUSCULTATION: clear to auscultation bilaterally Cardio: COMMON NORMALS: regular rate, regular rhythm and No murmurs present (Cardio) RATE: regular rate RHYTHM: regular rhythm GI: COMMON NORMALS: Soft to palpation and No hepatosplenomegaly present AUSCULTATION: Yes normoactive bowel sounds PALPATION: Yes Soft to palpation, No Tenderness to palpation present (GI), No Guarding due to palpation present (GI) and Yes No hepatosplenomegaly present Extremity: COMMON NORMALS: normal to inspection, capillary refill normal, no clubbing, cyanosis or edema, no calf tenderness and no pedal edema Neuro: SENSORIUM/ORIENTATION: Yes oriented to person, Yes oriented to place and Yes oriented to time Skin: COMMON NORMALS: no rashes or lesions noted GENERAL SKIN EXAM: no rashes or lesions noted Course Vital Signs: Vital signs: Vital Signs Temperature 98.3 F 05/08/23 17:14 Pulse Rate 88 05/08/23 17:14 Respiratory Rate 23 H 05/08/23 17:14 Blood Pressure 141/79 05/08/23 17:14 Pulse Oximetry 91 05/08/23 17:14 Oxygen Delivery Me thod Nasal Cannula 05/08/23 17:14 Oxygen Flow Rate 2 05/08/23 17:14 Discharge Plan Discharge Condition: Stable Prescriptions: No Action nitroglycerin 0.4 mg tablet, sublingual 0.4 mg sublingual Q5M PRN (Reason: chest pain) Qty: 30 2RF Rx Instructions: do not exceed 3 doses per episode bumetanide 1 mg tablet 1 mg PO QAM Qty: 90 2RF Rx Instructions: increase to 2mg daily for 3 days then reduce to 1mg daily. Take with potassium metformin 500 mg tablet extended release 24 hr 1,000 mg PO DAILY Januvia 50 mg tablet 50 mg PO DAILY (DME) Diabetic Shoes with Custom inserts See Rx Instructions .Route .MEDSUPPLY Qty: 1 0RF Rx Instructions: As directed by Cookie Brewster Brilinta 90 mg tablet 90 mg PO BID Qty: 180 2RF Hold Instructions: Resume on 01/28/23. albuterol sulfate 90 mcg/actuation HFA aerosol inhaler 2 inh INHALATION Q4H PRN (Reason: shortness of breath or wheezing) Qty: 18 0RF ondansetron 4 mg tablet,disintegrating 4 mg PO Q6H PRN (Reason: nausea and vomiting) Qty: 14 0RF Anoro Ellipta 62.5-25 mcg/actuation blister with device 1 inh INHALATION DAILY lidocaine-prilocaine 2.5-2.5 % cream See Rx Instructions .ROUTE .COMPLEX Rx Instructions: Apply to port 30-45 minutes prior to access albuterol sulfate 2.5 mg /3 mL (0.083 %) solution for nebulization 2.5 mg inhalation Q4H PRN (Reason: Shortness Of Breath) fluoxetine 40 mg capsule 40 mg PO DAILY bupropion HCl 300 mg tablet extended release 24 hr 300 mg PO DAILY Vraylar 1.5 mg capsule 1.5 mg PO DAILY hydralazine 25 mg tablet 25 mg PO BID amlodipine 2.5 mg tablet 2.5 mg PO DAILY Advair Diskus 500-50 mcg/dose blister with device 1 ea INHALATION BID aripiprazole 30 mg tablet 30 mg PO BEDTIME metoprolol tartrate 25 mg tablet 25 mg PO BID Victoza 3-Alessandro 0.6 mg/0.1 mL (18 mg/3 mL) pen injector 1.2 mg SUBCUT QAM Eliquis 5 mg tablet 5 mg PO BID Rexulti 2 mg tablet 2 mg PO DAILY Colace 100 mg capsule 100 mg PO BID PRN (Reason: Constipation) white petrolatum Ointment 1 applic topical BID Qty: 2043.8 0RF gabapentin 300 mg capsule See Rx Instructions .ROUTE .COMPLEX Qty: 32 0RF Rx Instructions: take one cap twice a day on 04/12. 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
[2023-05-08 18:22] VITALS: BP 170/80; PULSE 86; RESP 18; O2SAT 94
--- NOTE | 2023-05-08 18:45 | PC.NURSE ---
report given to kathleen davis
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
[2023-05-08 19:01] VITALS: BP 116/72; PULSE 99; RESP 20; O2SAT 95
== END 2023-05-08 19:01 | disposition home or self-care (01) ==
PROVIDERS: Emergency Provider Internal Medicine; PCP Family Medicine
DX: M25.512 Pain in left shoulder (principal); R05.9 Cough, unspecified; Z79.01 Long term (current) use of anticoagulants; Z79.84 Long term (current) use of oral hypoglycemic drugs; Z87.891 Personal history of nicotine dependence; E11.9 Type 2 diabetes mellitus without complications; I25.10 Atherosclerotic heart disease of native coronary artery without angina pectoris; J44.9 Chronic obstructive pulmonary disease, unspecified; I10 Essential (primary) hypertension
CPT/HCPCS: 71045; 93005; 99284

== ENCOUNTER 2023-05-12 06:52 | Emergency (ER) | payer MEDICAID, SELFPAY ==
[2023-05-12] VITALS (10 sets, daily range): BP systolic 107–189; BP diastolic 57–161; PULSE 102–109; RESP 8–19; TEMP 36.8; O2SAT 87–95; BMI 32.9
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
--- NOTE | 2023-05-12 07:03 | ECG_ITS ---
[facility] Test Date: 2023-05-12 Pat Name: Le Barnhart Department: Room: Gender: Female Mental Health Unit Lead Psychologist: : 1965 Requested By: Ernesto Barnes Order Number: [id number] Reading MD: David Escalante M.D. Measurements Intervals [place] Rate: 103 P: 29 CT: 150 QRS: 51 QRSD: 93 T: -1 QT: 345 QTc: 452 Interpretive Statements SINUS TACHYCARDIA WITH OCCASIONAL SUPRAVENTRICULAR PREMATURE COMPLEXES POSSIBLE LEFT ATRIAL ENLARGEMENT [-0.1mV P-WAVE IN V1/V2] PROBABLE INFERIOR MYOCARDIAL INFARCTION , PROBABLY OLD [35 ms Q WAVE IN II/aVF] Compared to ECG 05/08/2023 17:14:15 Myocardial infarct finding now present T-wave abnormality no longer present Electronically Signed On 05-12-2023 9:44:17 KITCHEN BATH DESIGNER by David Escalante M.D. [id number]
--- NOTE | 2023-05-12 07:18 | XRR_ITS ---
PROCEDURE INFORMATION: Exam: XR Chest Exam date and time: 05/12/2023 7:34 AM Age: 57 years old Clinical indication: Cough and dyspnea; Additional info: Dyspnea/cough TECHNIQUE: Imaging protocol: Radiologic exam of the chest. Views: 1 view. COMPARISON: CR (CHEST, ) 05/08/2023 5:20 PM FINDINGS: Lungs: There is opacity at the left lung base unchanged from the prior study. Right lung is relatively clear. Pleural spaces: No pneumothorax. Heart/Mediastinum: Unremarkable. No cardiomegaly. Bones/joints: Cervical spondylosis is noted. XR/XR chest 1V portable [id number] IMPRESSION: No significant change from the prior study.
--- NOTE | 2023-05-12 07:19 | CT_ITS ---
WS: [id number] CT ABDOMEN AND PELVIS WITH CONTRAST HISTORY: abd pain, status post spleen rupture with splenic artery coiling. Increasing abdominal pain. TECHNIQUE: Imaging performed of the abdomen and pelvis with IV contrast. Single phase imaging of the abdomen. Coronal and sagittal reformats are submitted. All CT scans at [facility] use at [address] one of these dose optimization techniques: automated exposure control; mA and/or kV adjustment per patient size (includes targeted exams where dose is matched to clinical indication); or iterative re construction. IV CONTRAST: Omnipaque 350; 100 mL IV. Oral contrast: No DLP: 854.50 mGy.cm COMPARISON: 03/31/2023 and 03/28/2023 Lower thorax: Small LEFT pleural effusion with LEFT basilar atelectasis. The RIGHT pleural effusion h as improved since 03/31/2023. There is edema and a small contusion in the anterior LEFT chest wall. Ove rall the chest wall edema is improved since 03/31/2023. Heart is normal size. No hiatal hernia. Liver/biliary system: Normal size with no intrahepatic dilatation. Gallbladder: Normal. No gallstones or wall thickening. No pericholecystic fluid. Pancreas: Normal size pancreas and pancreatic duct. No adjacent inflammation. Spleen: Patient is status post splenic artery coiling since the prior study. There is a large fluid c ollection which is probably a large resolving hematoma or pseudocyst in the spleen measuring 11.4 x 1 3.9 x 12.0 cm. There is no active bleeding identified but there is significant distention of the sple anna capsule. This large fluid collection was not present on 03/31/2023. Adrenal glands: Normal. Right kidney: Nonobstructing 5 mm calcification lower pole Left kidney: Normal. Aorta: Mild atherosclerosis with no aneurysm. Lymphadenopathy: None. Free fluid: None. GI tract: Stomach is being displaced anteriorly and medially by the large splenic pseudocyst. Abdominal wall: Fat containing umbilical hernia. Pelvis: No free fluid or adenopathy within the pelvis. Prior hysterectomy. There is a small fluid col lection lateral to the LEFT ilium measuring 3.0 cm which is probably a resolving hematoma from the pr ior trauma. Bones: Increase in lumbar lordosis. L4 anterolisthesis by 2 mm. IMPRESSION: 1. 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 The re is significant distention of the spleen with a pseudocyst measuring 11.4 x 13.9 x 12.0 cm. Pseudoc yst is causing mass effect upon the adjacent organs. 2. No active bleeding is identified at the site of the splenic artery coiling. 3. Small LEFT pleural effusion with LEFT lower lobe atelectasis. 4. Improvement in the soft tissue contusion over the LEFT chest and abdomen. Notified Ernesto Still DO at 05/12/2023 9:35 AM.
[2023-05-12] MEDS: morphine 4 mg/mL SDV 1 mL 2 MG IVP (07:44)
[2023-05-12] MEDS: ondansetron 2 mg/ML SDV 2 mL 4 MG IVP (07:44)
[2023-05-12] MEDS: iohexol 350 mg/mL 500 mL Btl (per mL) IV (07:49)
[2023-05-12 08:13] LABS: Add Urine Microscopic? NO; Charge for UA Resulting for Rev
[2023-05-12 08:15] LABS: Basophils # 0.1 10^3/uL (0.0-0.1); Basophils % 0.7 %; Eosinophils # 0.1 10^3/uL (0.0-0.8); Eosinophils % 0.9 %; Hematocrit 36.6 % (36-47); Lymphocytes # 1.5 10^3/uL (0.8-4.8); Lymphocytes % 19.6 %; Mean Corpuscular HGB Conc 31.1 g/dL (30-55); Mean Corpuscular Volume 99.5 fl (85-98); Mean Platelet Volume 9.9 fL (7.4-10.4); Monocytes # 0.8 10^3/uL (0.2-0.9); Monocytes % 10.6 %; Neutrophils # 5.15 10^3/uL (1.8-7.7); Neutrophils % 67.4 %; Nucleated Red Blood Cells % 0 %; Platelet Count 264 10^3/cmm (157-399); Red Blood Count 3.68 10^6/uL (3.85-5.65); Red Cell Distribution Width 17.2 % (12.1-15.1); White Blood Count 7.64 10^3/uL (3.29-11.43)
[2023-05-12 08:32] LABS: Bilirubin Urine Neg (Negative); Blood Urine Neg (Negative); Glucose Urine UA Norm (Normal); Ketones Urine Negative (Negative); Leukocyte Esterase Urine Negative (Negative); Nitrate Urine Negative (Negative); Protein Urine Neg (Negative); Specific Gravity, Urine 1.015 (1.005-1.030); Sulfosalicylic Acid Urine Negative (Negative); Urine Appearance Clear (CLEAR); Urine Color Yellow (Yellow); Urobilinogen Urine Norm (Negative); pH Urine 8 (5-7)
[2023-05-12 08:33] LABS: Alanine Aminotransferase 11 U/L (0-33); Albumin Level 3.3 g/dL (3.5-5.2); Alkaline Phosphatase 108 U/L (35-105); Anion Gap 14.5 (5-19); Aspartate Amino Transferase 12 U/L (0-32); Blood Urea Nitrogen 10 mg/dL (6-20); Carbon Dioxide 27 mmol/L (22-29); Chloride 99 mmol/L (98-107); Globulin 3.5 g/dL (1.3-4.6); Glomerular Filtration Rate 127.2 mL/min (90-130); Glucose 108 mg/dL (65-115); Lipase 8 U/L (13-60); Magnesium 1.7 mg/dL (1.7-2.3); Osmolality Calculated 284 mOsm/kg (285-295); Potassium 3.5 mmol/L (3.5-5.1); Sodium 137 mmol/L (136-145); Total Bilirubin 0.2 mg/dL (0.15-1.2); Total Protein 6.8 g/dL (6.6-8.7)
[2023-05-12 08:34] LABS: Troponin(5th) Baseline 87 ng/L (0-10)
--- NOTE | 2023-05-12 08:48 | ECG_ITS ---
[facility] Test Date: 2023-05-12 Pat Name: Le Barnhart Department: Room: Gender: Female Ion Implant Machine Operator: : 1965 Requested By: Ernesto Barnes Order Number: [id number] Jessica MD: David Escalante M.D. Measurements Intervals [place] Rate: 102 P: 35 CO: 158 QRS: 54 QRSD: 86 T: -3 QT: 329 QTc: 429 Interpretive Statements SINUS TACHYCARDIA WITH OCCASIONAL SUPRAVENTRICULAR PREMATURE COMPLEXES POSSIBLE INFERIOR MYOCARDIAL INFARCTION , OF INDETERMINATE AGE [30 ms Q WAVE IN II/aVF] Compared to ECG 05/12/2023 07:10:53 No significant changes Electronically Signed On 05-12-2023 9:47:32 CIRCULAR HEAD SAW OPERATOR by David Escalante M.D. [id number]
[2023-05-12] MEDS: morphine 4 mg/mL SDV 1 mL IVP (09:33)
[2023-05-12] MEDS: D5-NS 0.45% + KCL 20 mEq 20 MEQ/1,000 ML BAG 125 MEQ IV (09:57)
[2023-05-12 10:33] LABS: Troponin 5 2HR 86.44 ng/L (0-10)
[2023-05-12 10:34] LABS: Troponin 5 2HR Delta -0.56 ABS# (0-10)
[2023-05-12] MEDS: HYDROmorphone 1 mg/mL INJ 1 mL 0.5 MG IVP ×3 (11:20→13:33)
[2023-05-12] MEDS: metoclopramide 5 mg/mL SDV 2 mL 10 MG IVP (11:20)
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
--- NOTE | 2023-05-12 13:06 | ECG_ITS ---
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 Measurements Intervals [place] Rate: 96 P: 39 NV: 154 QRS: 60 QRSD: 87 T: 15 QT: 339 QTc: 429 Interpretive Statements SINUS RHYTHM WITH OCCASIONAL SUPRAVENTRICULAR PREMATURE COMPLEXES POSSIBLE LEFT ATRIAL ENLARGEMENT [-0.1mV P-WAVE IN V1/V2] POSSIBLE INFERIOR MYOCARDIAL INFARCTION , OF INDETERMINATE AGE [30 ms Q WAVE IN II/aVF] Compared to ECG 05/12/2023 08:48:33 Sinus tachycardia no longer present Myocardial infarct finding still present Electronically Signed On 05-12-2023 13:32:05 COUNTER FORMER by David Escalante M.D. [email or web address] [id number]
== END 2023-05-12 13:45 | disposition short-term general hospital (02) ==
PROVIDERS: Emergency Provider Family Medicine; PCP Family Medicine
DX: J90 Pleural effusion, not elsewhere classified (principal); S36.029A Unspecified contusion of spleen, initial encounter; E11.9 Type 2 diabetes mellitus without complications; I25.10 Atherosclerotic heart disease of native coronary artery without angina pectoris; J44.9 Chronic obstructive pulmonary disease, unspecified; I10 Essential (primary) hypertension; Z87.891 Personal history of nicotine dependence; V89.2XXA Person injured in unspecified motor-vehicle accident, traffic, initial encounter
CPT/HCPCS: 36415; 71045; 74177; 80053; 81003; 83690; 83735; 84484; 85025; 93005; 96365; 96366; 96375; 96376; 99285; J1170; J2270; J2405; J2765; Q9967

== ENCOUNTER 2023-05-19 20:39 | Emergency (ER) | payer MEDICAID, SELFPAY ==
[2023-05-19 20:42] VITALS: BP 143/80; PULSE 107; RESP 22; TEMP 36.6; O2SAT 93; BMI 32.9
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
[2023-05-19 21:12] LABS: Basophils # 0.1 10^3/uL (0.0-0.1); Basophils % 0.5 %; Eosinophils # 0.1 10^3/uL (0.0-0.8); Eosinophils % 0.9 %; Hematocrit 40.8 % (36-47); Lymphocytes # 1.7 10^3/uL (0.8-4.8); Lymphocytes % 17.7 %; Mean Corpuscular HGB Conc 30.4 g/dL (30-55); Mean Corpuscular Hemoglobin 29.5 pg (27-33); Mean Corpuscular Volume 96.9 fl (85-98); Mean Platelet Volume 9.5 fL (7.4-10.4); Monocytes # 0.7 10^3/uL (0.2-0.9); Monocytes % 7.3 %; Neutrophils # 6.88 10^3/uL (1.8-7.7); Neutrophils % 73.2 %; Nucleated Red Blood Cells % 0 %; Platelet Count 279 10^3/cmm (157-399); Red Blood Count 4.21 10^6/uL (3.85-5.65); Red Cell Distribution Width 17.5 % (12.1-15.1)
[2023-05-19] MEDS: morphine 4 mg/mL SDV 1 mL IVP (21:12)
[2023-05-19] MEDS: ondansetron 2 mg/ML SDV 2 mL 4 MG IVP (21:12)
--- NOTE | 2023-05-19 21:13 | ED_ITS ---
HPI - Abdominal Pain 2 General: Chief Complaint: Abdominal Pain Stated Complaint: N/V Time Seen by Provider: 05/19/23 20:52 History of Present Illness: Patient presents to the ER with complaints of generalized abdominal pain and nausea and vomiting. Patient is actively vomiting. Patient was recently transferred from here to [facility] trauma services for abdominal pain and pleural effusion. They placed a chest tube and found a large splenic cyst/hematoma. Patient was recently discharged from there and was told if she had any more abdominal pain or nausea vomiting come to the ER immediately. So patient presented to this ER. Review of Systems 2 General: Reports: 10 or more systems reviewed and unremarkable except in HPI and below PFSH ED 2 PFSH: Medical History History of diabetes mellitus Sinus pause Hemochromatosis Atherosclerotic heart disease of [place] coronary artery with unstable angina pectoris CAD (coronary artery disease) COPD (chronic obstructive pulmonary disease) NSAID long-term use Smoking addiction Status post chemoradiation Vaginal tumors Nocturnal hypoxia Cirrhosis Chest pain Hypertension Surgical History Hx of appendectomy Hx of colonoscopy with polypectomy 10 yrs ago H/O vaginal surgery Family History Denies family history of Colon cancer Ovarian cancer Diabetes Heart disease Hypercholesteremia Breast cancer Hypertension Uterine cancer Thyroid disease Stroke Social History Smoking and tobacco/nicotine status: former use of tobacco/nicotine Quit status (tobacco/nicotine): has quit using Year quit tobacco: July 2022 Former quit date comment: smoked 47 years Alcohol intake: never Substance/Drug Use: never Lives independently: Yes Household members: significant other Marital status: Single Physical Exam 2 Const: COMMON NORMALS: no acute distress, average body habitus, patient oriented x3, no limitations, healthy appearing, alert and well nourished HENMT: COMMON NORMALS: normocephalic, atraumatic, hearing grossly normal bilaterally, external ears normal, EAC's normal, Normal external nose present, moist oral mucous membranes and oropharynx normal HEAD & SCALP: normocephalic and atraumatic NOSE: Normal external nose present EXTERNAL EAR: Yes external ears normal EXTERNAL AUDITORY CANAL: EAC's normal Neck/C-Spine: COMMON NORMALS: no JVD Chest: COMMONS NORMALS: normal inspection of the chest and normal palpation of entire chest wall Resp: COMMON NORMALS: normal respiratory effort, No retractions, No use of accessory muscles and clear to auscultation bilaterally AUSCULTATION: clear to auscultation bilaterally Cardio: COMMON NORMALS: no JVD, regular rate, regular rhythm, S1 normal heart sound present, S2 normal heart sound present, No gallops present (Cardio), No clicks present (Cardio), No murmurs present (Cardio) and No rub (Cardio) R ATE: regular rate RHYTHM: regular rhythm HEART SOUNDS: S1 normal heart sound present and S2 normal heart sound present GI: COMMON NORMALS: no masses; negative for Normal to inspection, nondistended, normoactive bowel sounds present (Generalized tenderness to palpation, mildly distended good bowel sounds) Neuro: COMMON NORMALS: patient oriented x3 SENSORIUM/ORIENTATION: Yes alert Course 2 Vital Signs: Vital signs: Vital Signs Temperature 97.9 F 05/19/23 20:42 Pulse Rate 94 05/20/23 00:00 Respiratory Rate 16 05/20/23 00:00 Blood Pressure 96/83 05/20/23 00:00 Pulse Oximetry 93 05/20/23 00:00 Oxygen Delivery Me thod Nasal Cannula 05/20/23 00:00 Oxygen Flow Rate 3 05/20/23 00:00 MDM - Abdominal Pain Medical Decision Making Patient presents to the ER with complaints of abdominal pain and nausea vomiting. Patient was worked up with blood work including CBC CMP and lipase all of which was essentially normal. Patient had a abdomen of CT and pelvis with contrast. That showed a 16mm splenic cyst, prominent gallbladder, left lower lobe pneumonia left pleural effusion. This was followed up by ultrasound of the abdomen which showed biliary sludge with dilation of the gallbladder with mild wall thickening they recommended a HIDA scan. During this time patient was given IV pain medicine nausea medicine and is feeling better. Patient states he is ready to go home. These findings was discussed with the patient. Patient will be sent prescription for antibiotics and pain medicine and suggested that she follow-up with her PCP to arrange a HIDA scan. Differential Diagnosis Likely abdominal pain; Unlikely acute appendicitis, calculus of kidney, constipation, diverticulitis, endometriosis, gastroenteritis, pancreatitis or small bowel obstruction Medical Records I reviewed the patient's medical records. Lab Data I reviewed the patient's lab results. 05/19/23 20:59 05/19/23 20:59 Labs/Radiology: Radiology Impressions Abdomen/Pelvis CT 05/19/23 20:55 IMPRESSION: 1. Negative for acute inflammatory process in the abdomen or pelvis. 2. Moderate left pleural effusion. 3. Left lower lobe pneumonia. 4. Coronary artery atherosclerotic calcifications. 5. Gallbladder is somewhat prominent, ultrasound could further evaluate this. 6. 16 cm splenic cyst. 7. Right kidney nonobstructing calyceal stone. Abdomen Ultrasound 05/19/23 21:57 IMPRESSION: 1. Biliary sludge with dilation of the gallbladder with mild wall thickening to 4.3 mm, may reflect an evolving cholecystitis, ultrasound could further evaluate this as clinically indicated. 2. Right kidney 7 mm nonobstructing calyceal stone, negative for hydronephrosis. 3. 12 mm splenic cyst. 4. Hepatic steatosis. ADDENDUM: 05/20/23 0028 1st impression should read Biliary sludge with dilation of the gallbladder with mild wall thickening to 4.3 mm, may reflect an evolving cholecystitis, nuclear medicine HIDA scan could further evaluate this as clinically indicated. Laboratory Results WBC 9.40 10^3/uL (3.29-11.43) 05/19/23 20:59 RBC 4.21 10^6/uL (3.85-5.65) 05/19/23 20:59 Hgb 12.40 g/dL (11.27-16.99) 05/19/23 20:59 Hct 40.8 % (36-47) 05/19/23 20:59 MCV 96.9 fl (85-98) 05/19/23 20:59 MCH 29.5 pg (27-33) 05/19/23 20:59 MCHC 30.4 g/dL (30-55) 05/19/23 20:59 RDW 17.5 % (12.1-15.1) H 05/19/23 20:59 Plt Count 279 10^3/cmm (157-399) 05/19/23 20:59 MPV 9.5 fL (7.4-10.4) 05/19/23 20:59 Neut % (Auto) 73.2 % 05/19/23 20:59 Lymph % (Auto) 17.7 % 05/19/23 20:59 [place] % (Auto) 7.3 % 05/19/23 20:59 Eos % (Auto) 0.9 % 05/19/23 20:59 Baso % (Auto) 0.5 % 05/19/23 20:59 Neut # (Auto) 6.88 10^3/uL (1.8-7.7) 05/19/23 20:59 Lymph # (Auto) 1.7 10^3/uL (0.8-4.8) 05/19/23 20:59 [place] # (Auto) 0.7 10^3/uL (0.2-0.9) 05/19/23 20:59 Eos # (Auto) 0.1 10^3/uL (0.0-0.8) 05/19/23 20:59 Baso # (Auto) 0.1 10^3/uL (0.0-0.1) 05/19/23 20:59 Nucleated RBC % (auto) 0 % 05/19/23 20:59 Nucleated RBCs # 0.0 /100WBC 05/19/23 20:59 Sodium 142 mmol/L (136-145) 05/19/23 20:59 Potassium 4.1 mmol/L (3.5-5.1) 05/19/23 20:59 Chloride 100 mmol/L (98-107) 05/19/23 20:59 Carbon Dioxide 29 mmol/L (22-29) 05/19/23 20:59 Anion Gap 17.1 (5-19) 05/19/23 20:59 BUN 18 mg/dL (6-20) 05/19/23 20:59 Creatinine 0.6 mg/dL (0.5-0.9) 05/19/23 20:59 GFR Calculation 103.0 mL/min (90-130) 05/19/23 20:59 Glucose 136 mg/dL (65-115) H 05/19/23 20:59 Calculated Osmolality 298 mOsm/kg (285-295) H 05/19/23 20:59 Calcium 10.0 mg/dL (8.5-10.5) 05/19/23 20:59 Total Bilirubin 0.2 mg/dL (0.15-1.2) 05/19/23 20:59 AST 16 U/L (0-32) 05/19/23 20:59 ALT 14 U/L (0-33) 05/19/23 20:59 Alkaline Phosphatase 100 U/L (35-105) 05/19/23 20:59 Total Protein 8.4 g/dL (6.6-8.7) 05/19/23 20:59 Albumin 3.8 g/dL (3.5-5.2) 05/19/23 20:59 Globulin 4.6 g/dL (1.3-4.6) 05/19/23 20:59 Lipase 10 U/L (13-60) L 05/19/23 20:59 All radiology interpretation(s) finalized by discharge Discharge Plan Discharge Patient Disposition: Home Clinical Impression: Biliary colic, Pancreas cyst Abdominal pain Qualifiers: Abdominal location: generalized Qualified Code(s): R10.84 - Generalized abdominal pain Nausea & vomiting Qualifiers: Vomiting type: unspecified Qualified Code(s): R11.2 - Nausea with vomiting, unspecified Condition: Stable Prescriptions: New amoxicillin-pot clavulanate 875-125 mg tablet 1 tab PO Q12H Qty: 10 0RF Percocet 5-325 mg tablet 1 tab PO TID PRN (Reason: pain) Qty: 10 0RF ondansetron 4 mg tablet,disintegrating 4 mg PO Q6H PRN (Reason: nausea and vomiting) Qty: 14 0RF No Action nitroglycerin 0.4 mg tablet, sublingual 0.4 mg sublingual Q5M PRN (Reason: chest pain) Qty: 30 2RF Rx Instructions: do not exceed 3 doses per episode bumetanide 1 mg tablet 1 mg PO QAM Qty: 90 2RF Rx Instructions: increase to 2mg daily for 3 days then reduce to 1mg daily. Take with potassium (DME) Diabetic Shoes with Custom inserts See Rx Instructions .Route .MEDSUPPLY Qty: 1 0RF Rx Instructions: As directed by Cookie Brewster albuterol sulfate 90 mcg/actuation HFA aerosol inhaler 2 inh INHALATION Q4H PRN (Reason: shortness of breath or wheezing) Qty: 18 0RF ondansetron 4 mg tablet,disintegrating 4 mg PO Q6H PRN (Reason: nausea and vomiting) Qty: 14 0RF Anoro Ellipta 62.5-25 mcg/actuation blister with device 1 inh INHALATION DAILY azithromycin [Zithromax Z-Alessandro] 250 mg tablet See Rx Instructions .ROUTE .COMPLEX Qty: 6 0RF Rx Instructions: For 250 mg dose pack: take 500 mg today (day 1), then 250 mg for 4 days (days 2-5) albuterol sulfate 2.5 mg /3 mL (0.083 %) solution for nebulization 2.5 mg inhalation Q4H PRN (Reason: Shortness Of Breath) fluoxetine 40 mg capsule 40 mg PO QAM hydralazine 25 mg tablet 25 mg PO BID amlodipine 2.5 mg tablet 2.5 mg PO QAM fluticasone propion-salmeterol [Advair Diskus] 500-50 mcg/dose blister with device 1 inh INHALATION BID metoprolol tartrate 25 mg tablet 25 mg PO BID Victoza 3-Alessandro 0.6 mg/0.1 mL (18 mg/3 mL) pen injector 1.2 mg SUBCUT QAM Eliquis 5 mg tablet 5 mg PO BID naproxen 500 mg tablet 500 mg PO BID PRN (Reason: pain) Qty: 20 0RF tramadol 50 mg tablet 50 mg PO Q8H PRN (Reason: pain) Qty: 6 0RF cyclobenzaprine 10 mg tablet 10 mg PO Q8H PRN (Reason: Muscle Spasm) benzonatate 200 mg capsule 200 mg PO TID PRN (Reason: Cough) hydrocodone-acetaminophen 10-325 mg tablet 1 tab PO Q4H PRN (Reason: Pain) hydrocodone-acetaminophen 7.5-325 mg tablet 1 tab PO Q8H PRN (Reason: Pain) gabapentin 300 mg capsule 300 mg PO TID Discharge Orders: Discharge ED (Routine); Ordered 05/20/23 Ordered By: Ludwin Peres Referrals: Ryann Burk [Primary Care Provider] - Patient Instructions: Biliary Colic (ED), Abdominal Pain (ED), Opioid Safety, Pain Management Activity Restrictions/Additional Instructions: Your workup in ER showed your gallbladder is mildly irritated. You need to follow-up with your family practice physician to arrange a HIDA scan to assess the function. You will be placed on antibiotics, pain medicine, nausea medicine. Please follow-up with them within the next 7 days. If your pain nausea vomiting worsens please return to the ER. 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
[2023-05-19] MEDS: sodium chloride 0.9% 1,000 ML 999 ML IV (21:14)
[2023-05-19 21:15] VITALS: BP 132/102; PULSE 86; RESP 16; O2SAT 94
[2023-05-19] MEDS: iohexol 350 mg/mL 500 mL Btl (per mL) IV (21:24)
[2023-05-19 21:29] LABS: Alanine Aminotransferase 14 U/L (0-33); Albumin Level 3.8 g/dL (3.5-5.2); Alkaline Phosphatase 100 U/L (35-105); Anion Gap 17.1 (5-19); Aspartate Amino Transferase 16 U/L (0-32); Blood Urea Nitrogen 18 mg/dL (6-20); Carbon Dioxide 29 mmol/L (22-29); Chloride 100 mmol/L (98-107); Creatinine Clr Calc Pharmacy 110.4891; Globulin 4.6 g/dL (1.3-4.6); Glucose 136 mg/dL (65-115); Lipase 10 U/L (13-60); Osmolality Calculated 298 mOsm/kg (285-295); Potassium 4.1 mmol/L (3.5-5.1); Sodium 142 mmol/L (136-145); Total Bilirubin 0.2 mg/dL (0.15-1.2); Total Protein 8.4 g/dL (6.6-8.7)
--- NOTE | 2023-05-19 21:57 | USR_ITS ---
PROCEDURE INFORMATION: Exam: US Abdomen, Limited; Right Upper Quadrant Exam date and time: 05/19/2023 11:15 PM Age: 57 years old Clinical indication: Abdominal pain; Generalized; Patient HX: Abd pain, prominent gb on CT, n/v TECHNIQUE: Imaging protocol: Real time ultrasound of the abdomen with image documentation. Limited exam focused on the right upper quadrant. COMPARISON: US abdomen lmt fluid [id number] 06/10/2022 7:47 AM FINDINGS: Liver: Hepatic steatosis. Gallbladder: Biliary sludge with dilation of the gallbladder with mild wall thickening to 4.3 mm, may reflect an evolving cholecystitis, ultrasound could further evaluate this as clinically indicated. Biliary ducts: Normal. No stones. No dilation. Pancreas: Visualized pancreas is unremarkable. Right kidney: Right kidney 7 mm nonobstructing calyceal stone, negative for hydronephrosis. Spleen: 12 mm splenic cyst. US/US abdomen limited [id number] IMPRESSION: 1. Biliary sludge with dilation of the gallbladder with mild wall thickening to 4.3 mm, may reflect an evolving cholecystitis, ultrasound could further evaluate this as clinically indicated. 2. Right kidney 7 mm nonobstructing calyceal stone, negative for hydronephrosis. 3. 12 mm splenic cyst. 4. Hepatic steatosis.
[2023-05-19] MEDS: metoclopramide 5 mg/mL SDV 2 mL 10 MG IVP (22:02)
[2023-05-19] MEDS: HYDROmorphone 1 mg/mL INJ 1 mL 0.5 MG IVP ×2 (22:03→23:39)
[2023-05-19 22:05] VITALS: BP 157/76; PULSE 98; RESP 16; O2SAT 94
[2023-05-20] VITALS: BP 96/83; PULSE 94; RESP 16; O2SAT 93
[2023-05-20] MEDS: HYDROmorphone 1 mg/mL INJ 1 mL 0.5 MG IVP (00:37)
== END 2023-05-20 00:50 | disposition home or self-care (01) ==
PROVIDERS: Emergency Medicine; Emergency Provider Emergency Medicine; PCP Family Medicine
DX: K80.50 Calculus of bile duct without cholangitis or cholecystitis without obstruction (principal); K86.2 Cyst of pancreas; R10.84 Generalized abdominal pain; R11.2 Nausea with vomiting, unspecified; Z79.01 Long term (current) use of anticoagulants; Z87.891 Personal history of nicotine dependence; E11.9 Type 2 diabetes mellitus without complications; I25.10 Atherosclerotic heart disease of native coronary artery without angina pectoris; J44.9 Chronic obstructive pulmonary disease, unspecified; I10 Essential (primary) hypertension
CPT/HCPCS: 36415; 74177; 76705; 80053; 83690; 85025; 96361; 96374; 96375; 96376; 99285; J1170; J2270; J2405; J2765; J7030; Q9967

== ENCOUNTER 2023-05-23 06:45 | Emergency (ER) | payer MEDICAID, SELFPAY ==
[2023-05-23 06:52] VITALS: BP 135/71; PULSE 95; RESP 17; TEMP 36.9; O2SAT 95
--- NOTE | 2023-05-23 06:57 | XRR_ITS ---
PROCEDURE INFORMATION: Exam: XR Chest Exam date and time: 05/23/2023 7:41 AM Age: 57 years old Clinical indication: Cough and dyspnea; Additional info: Dyspnea/cough TECHNIQUE: Imaging protocol: Radiologic exam of the chest. Views: 1 view. COMPARISON: CR XR chest 1V portable [id number] 05/12/2023 7:34 AM FINDINGS: Lungs: There is improving volume loss and airspace density left lower lobe. Right lung is clear. Pulmonary vascularity is within normal limits. Pleural spaces: There is a smaller left pleural effusion. Residual small left pleural effusion versus pleural thickening. No right pleural effusion. No pneumothorax. Heart/Mediastinum: Unchanged cardiomegaly. Bones/joints: No acute abnormality. ACDF in cervical spine XR/XR chest 1V portable [id number] IMPRESSION: There is improving volume loss and airspace density left lower lobe. Decreasing left pleural effusion.
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
--- NOTE | 2023-05-23 07:07 | USR_ITS ---
PROCEDURE INFORMATION: Exam: US Abdomen, Limited; Right Upper Quadrant Exam date and time: 05/23/2023 6:23 AM Age: 57 years old Clinical indication: Abdominal pain; Epigastric; Additional info: Ruq abd pain TECHNIQUE: Imaging protocol: Real time ultrasound of the abdomen with image documentation. Limited exam focused on the right upper quadrant. COMPARISON: US abdomen limited [id number] 05/19/2023 11:15 PM FINDINGS: Liver: Normal. No masses. Liver length is slightly above normal limits at 16.3 cm. Gallbladder: Normal. No gallstones. There is no gallbladder wall thickening. Biliary ducts: Normal. No stones. No dilation. Pancreas: Obscured by bowel gas artifact. Right kidney: Normal. No mass. No hydronephrosis. US/US gall bladder [id number] IMPRESSION: No acute findings.
[2023-05-23 07:30] LABS: Basophils # 0.1 10^3/uL (0.0-0.1); Basophils % 0.6 %; Eosinophils # 0.1 10^3/uL (0.0-0.8); Eosinophils % 1.6 %; Hematocrit 40.4 % (36-47); Lymphocytes # 1.4 10^3/uL (0.8-4.8); Mean Corpuscular HGB Conc 30.4 g/dL (30-55); Mean Corpuscular Hemoglobin 29.6 pg (27-33); Mean Corpuscular Volume 97.1 fl (85-98); Mean Platelet Volume 9.8 fL (7.4-10.4); Monocytes # 0.8 10^3/uL (0.2-0.9); Monocytes % 9.8 %; Neutrophils # 5.57 10^3/uL (1.8-7.7); Neutrophils % 69.6 %; Nucleated Red Blood Cells % 0 %; Platelet Count 263 10^3/cmm (157-399); Red Blood Count 4.16 10^6/uL (3.85-5.65)
[2023-05-23 07:47] LABS: Alanine Aminotransferase 14 U/L (0-33); Albumin Level 3.7 g/dL (3.5-5.2); Alkaline Phosphatase 106 U/L (35-105); Anion Gap 15.7 (5-19); Aspartate Amino Transferase 14 U/L (0-32); Blood Urea Nitrogen 14 mg/dL (6-20); Calcium 9.4 mg/dL (8.5-10.5); Carbon Dioxide 28 mmol/L (22-29); Chloride 102 mmol/L (98-107); Creatinine Clr Calc Pharmacy 96.7364; Globulin 4.4 g/dL (1.3-4.6); Glomerular Filtration Rate 86.2 mL/min (90-130); Glucose 117 mg/dL (65-115); Lipase 8 U/L (13-60); Osmolality Calculated 296 mOsm/kg (285-295); Potassium 3.7 mmol/L (3.5-5.1); Sodium 142 mmol/L (136-145); Total Bilirubin 0.2 mg/dL (0.15-1.2); Total Protein 8.1 g/dL (6.6-8.7)
[2023-05-23] MEDS: ondansetron 2 mg/ML SDV 2 mL 4 MG IVP (07:55)
[2023-05-23] MEDS: sodium chloride 0.9% 1,000 ML 999 ML IV (07:55)
[2023-05-23 07:56] VITALS: RESP 18; O2SAT 93
[2023-05-23] MEDS: morphine 4 mg/mL SDV 1 mL IVP (07:56)
[2023-05-23 09:05] LABS: Add Urine Culture? Yes; Add Urine Microscopic? YES; Bacteria Urine 2+ /hpf; Bilirubin Urine Neg (Negative); Blood Urine Neg (Negative); Glucose Urine UA Norm (Normal); Ketones Urine Negative (Negative); Leukocyte Esterase Urine 1+ (Negative); Nitrate Urine Negative (Negative); Protein Urine Neg (Negative); Specific Gravity, Urine 1.015 (1.005-1.030); Squamous Epithelial Cell Urine 0-4 /hpf (0-5); Urine Appearance SL Hazy (CLEAR); Urine Color Yellow (Yellow); Urobilinogen Urine 1 mg/dL (Negative); WBC Urine 15-25 /hpf (0-5); pH Urine 6 (5-7)
== END 2023-05-23 09:45 | disposition home or self-care (01) ==
PROVIDERS: Emergency Provider Family Medicine; PCP Family Medicine
DX: J90 Pleural effusion, not elsewhere classified (principal); N30.90 Cystitis, unspecified without hematuria; S36.029A Unspecified contusion of spleen, initial encounter; Z79.01 Long term (current) use of anticoagulants; Z87.891 Personal history of nicotine dependence; E11.9 Type 2 diabetes mellitus without complications; I25.10 Atherosclerotic heart disease of native coronary artery without angina pectoris; J44.9 Chronic obstructive pulmonary disease, unspecified; I10 Essential (primary) hypertension; V89.2XXA Person injured in unspecified motor-vehicle accident, traffic, initial encounter
CPT/HCPCS: 71045; 76705; 80053; 81001; 83690; 85025; 87077; 87086; 87186; 96374; 96375; 99284; J2270; J2405; J7030

== ENCOUNTER 2023-05-25 07:22 | Emergency (ER) | payer MEDICAID, SELFPAY ==
[2023-05-25] VITALS (8 sets, daily range): BP systolic 117–143; BP diastolic 78–94; PULSE 76–91; RESP 18–20; TEMP 36.7; O2SAT 93–96; BMI 33.3
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
[2023-05-25] MEDS: morphine 4 mg/mL SDV 1 mL IVP (08:01)
[2023-05-25] MEDS: ondansetron 2 mg/ML SDV 2 mL 4 MG IVP (08:01)
[2023-05-25 08:18] LABS: Basophils # 0.1 10^3/uL (0.0-0.1); Basophils % 0.9 %; Eosinophils # 0.2 10^3/uL (0.0-0.8); Eosinophils % 2.6 %; Lymphocytes # 1.5 10^3/uL (0.8-4.8); Lymphocytes % 16.1 %; Mean Corpuscular HGB Conc 31.1 g/dL (30-55); Mean Corpuscular Hemoglobin 30.4 pg (27-33); Mean Corpuscular Volume 97.9 fl (85-98); Mean Platelet Volume 10.1 fL (7.4-10.4); Monocytes % 10.8 %; Neutrophils # 6.28 10^3/uL (1.8-7.7); Neutrophils % 68.6 %; Nucleated Red Blood Cells % 0 %; Platelet Count 221 10^3/cmm (157-399); Red Blood Count 3.88 10^6/uL (3.85-5.65); White Blood Count 9.15 10^3/uL (3.29-11.43)
[2023-05-25 08:38] LABS: Alanine Aminotransferase 12 U/L (0-33); Albumin Level 3.7 g/dL (3.5-5.2); Alkaline Phosphatase 109 U/L (35-105); Anion Gap 14.7 (5-19); Aspartate Amino Transferase 13 U/L (0-32); Blood Urea Nitrogen 11 mg/dL (6-20); Calcium 9.4 mg/dL (8.5-10.5); Carbon Dioxide 28 mmol/L (22-29); Chloride 98 mmol/L (98-107); Creatinine Clr Calc Pharmacy 115.1128; Globulin 4.1 g/dL (1.3-4.6); Glucose 120 mg/dL (65-115); Lipase 10 U/L (13-60); Osmolality Calculated 285 mOsm/kg (285-295); Potassium 3.7 mmol/L (3.5-5.1); Sodium 137 mmol/L (136-145); Total Bilirubin 0.2 mg/dL (0.15-1.2); Total Protein 7.8 g/dL (6.6-8.7)
[2023-05-25 10:22] LABS: Bilirubin Urine 1+ (Negative); Blood Urine Neg (Negative); Glucose Urine UA Norm (Normal); Ketones Urine Negative (Negative); Nitrate Urine Negative (Negative); Protein Urine Neg (Negative); Urine Appearance SL Hazy (CLEAR); Urine Color Yellow (Yellow); pH Urine 6 (5-7)
[2023-05-25 10:23] LABS: Add Urine Culture? No; Add Urine Microscopic? YES; Bacteria Urine 2+ /hpf; Leukocyte Esterase Urine Trace (Negative); Mucus Urine 1+ /hpf; RBC Urine 0-4 /hpf (0-2); Squamous Epithelial Cell Urine 0-4 /hpf (0-5); Urobilinogen Urine Neg (Negative)
[2023-05-25] MEDS: oxyCODONE-APAP 5-325 mg Tablet 1 TAB PO (10:34)
--- NOTE | 2023-05-25 10:34 | PC.PHAR ---
pt states she takes care of her own medications and pt verified her medications notes are made in the pharmacy comments
== END 2023-05-25 10:42 | disposition home or self-care (01) ==
PROVIDERS: Emergency Provider Family Medicine; PCP Family Medicine
DX: N30.90 Cystitis, unspecified without hematuria (principal); S36.029A Unspecified contusion of spleen, initial encounter; Z79.01 Long term (current) use of anticoagulants; Z87.891 Personal history of nicotine dependence; E11.9 Type 2 diabetes mellitus without complications; I25.10 Atherosclerotic heart disease of native coronary artery without angina pectoris; J44.9 Chronic obstructive pulmonary disease, unspecified; I10 Essential (primary) hypertension; V89.2XXA Person injured in unspecified motor-vehicle accident, traffic, initial encounter
CPT/HCPCS: 80053; 81001; 83690; 85025; 96374; 96375; 99284; J2270; J2405

== ENCOUNTER 2023-05-27 16:50 | Emergency (ER) | payer MEDICAID, SELFPAY ==
[2023-05-27 16:55] VITALS: BP 152/107; PULSE 94; RESP 18; TEMP 36.6; O2SAT 96
--- NOTE | 2023-05-27 16:56 | ECG_ITS ---
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 Measurements Intervals [place] Rate: 95 P: 35 OK: 141 QRS: 56 QRSD: 85 T: -15 QT: 339 QTc: 427 Interpretive Statements SINUS RHYTHM POSSIBLE INFERIOR MYOCARDIAL INFARCTION , OF INDETERMINATE AGE [30 ms Q WAVE IN II/aVF Compared to ECG 05/12/2023 13:06:24 No significant changes Electronically Signed On 05-28-2023 14:46:26 AUTOMOTIVE [employer]S INTERPRETER by David Escalante M.D. [id number]
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
--- NOTE | 2023-05-27 17:29 | XRR_ITS ---
PROCEDURE INFORMATION: Exam: XR Abdomen Exam date and time: 05/27/2023 6:13 PM Age: 57 years old Clinical indication: Abdominal pain; Generalized; Prior surgery; Surgery date: 6+ months; Surgery type: Appy; Additional info: Abd pain TECHNIQUE: Imaging protocol: Radiologic exam of the abdomen. Views: Frontal supine view of the abdomen. 1 View. COMPARISON: CT abdomen pelvis w con* [id number] 05/19/2023 9:22 PM FINDINGS: Tubes, catheters and devices: Vascular coils project over left abdomen. Gastrointestinal tract: Large amount of colonic stool. Organs: No organomegaly or pathologic calcification. Bones/joints: Unremarkable. XR/XR KUB [id number] IMPRESSION: 1. No acute pathology. 2. Large amount of colonic stool.
[2023-05-27] MEDS: ondansetron 2 mg/ML SDV 2 mL 4 MG IVP (17:42)
[2023-05-27 18:07] LABS: Basophils # 0.1 10^3/uL (0.0-0.1); Basophils % 1.1 %; Eosinophils # 0.1 10^3/uL (0.0-0.8); Eosinophils % 1.8 %; Hematocrit 39.3 % (36-47); Lymphocytes # 1.8 10^3/uL (0.8-4.8); Lymphocytes % 27.1 %; Mean Corpuscular HGB Conc 30.5 g/dL (30-55); Mean Corpuscular Hemoglobin 30.4 pg (27-33); Mean Corpuscular Volume 99.5 fl (85-98); Mean Platelet Volume 10.1 fL (7.4-10.4); Monocytes % 15.1 %; Neutrophils # 3.63 10^3/uL (1.8-7.7); Neutrophils % 54.6 %; Nucleated Red Blood Cells % 0 %; Platelet Count 199 10^3/cmm (157-399); Red Blood Count 3.95 10^6/uL (3.85-5.65); Red Cell Distribution Width 18.8 % (12.1-15.1); White Blood Count 6.64 10^3/uL (3.29-11.43)
[2023-05-27] MEDS: morphine 4 mg/mL SDV 1 mL IVP (18:24)
[2023-05-27 18:27] LABS: Alanine Aminotransferase 15 U/L (0-33); Albumin Level 3.8 g/dL (3.5-5.2); Alkaline Phosphatase 110 U/L (35-105); Aspartate Amino Transferase 17 U/L (0-32); Blood Urea Nitrogen 14 mg/dL (6-20); Calcium 9.5 mg/dL (8.5-10.5); Carbon Dioxide 26 mmol/L (22-29); Chloride 104 mmol/L (98-107); Creatinine Clr Calc Pharmacy 111.8538; Globulin 3.4 g/dL (1.3-4.6); Glucose 98 mg/dL (65-115); Lipase 9 U/L (13-60); Osmolality Calculated 292 mOsm/kg (285-295); Sodium 141 mmol/L (136-145); Total Bilirubin 0.2 mg/dL (0.15-1.2); Total Protein 7.2 g/dL (6.6-8.7); Troponin(5th) Baseline 23 ng/L (0-10)
[2023-05-27 18:36] VITALS: BP 149/52; PULSE 92; O2SAT 96
== END 2023-05-27 19:36 | disposition home or self-care (01) ==
PROVIDERS: Emergency Provider Emergency Medicine; PCP Family Medicine
DX: K59.00 Constipation, unspecified (principal); R10.9 Unspecified abdominal pain; Z79.01 Long term (current) use of anticoagulants; Z87.891 Personal history of nicotine dependence; E11.9 Type 2 diabetes mellitus without complications; I25.10 Atherosclerotic heart disease of native coronary artery without angina pectoris; J44.9 Chronic obstructive pulmonary disease, unspecified; I10 Essential (primary) hypertension
CPT/HCPCS: 36415; 74018; 80053; 83690; 84484; 85025; 93005; 96374; 96375; 99285; J2270; J2405

== ENCOUNTER 2023-06-05 17:33 | Emergency (ER) | payer MEDICAID, SELFPAY ==
[2023-06-05 18:05] VITALS: BP 108/61; PULSE 107; RESP 22; TEMP 36.8; O2SAT 98; BMI 22.6
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
[2023-06-05] MEDS: morphine 4 mg/mL SDV 1 mL IM (19:28)
== END 2023-06-05 19:47 | disposition home or self-care (01) ==
PROVIDERS: Emergency Provider Physician Assistant; PCP Family Medicine
DX: G89.18 Other acute postprocedural pain (principal); Z79.01 Long term (current) use of anticoagulants; Z87.891 Personal history of nicotine dependence; E11.9 Type 2 diabetes mellitus without complications; I25.10 Atherosclerotic heart disease of native coronary artery without angina pectoris; J44.9 Chronic obstructive pulmonary disease, unspecified; I10 Essential (primary) hypertension
CPT/HCPCS: 96372; 99284; J2270

== ENCOUNTER 2023-06-06 03:18 | Emergency (ER) | payer MEDICAID, SELFPAY ==
[2023-06-06 03:27] VITALS: BP 150/88; PULSE 106; RESP 16; TEMP 37.1; O2SAT 97
--- NOTE | 2023-06-06 03:46 | W.ED.ABDPA2 ---
HPI - Abdominal Pain General: Chief Complaint: Abdominal Pain Stated Complaint: Pain from post op Time Seen by Provider: 06/06/23 03:44 History of Present Illness: 57-year-old female presents emergency department with complaints of abdominal pain. She states she had a splenectomy from [facility] 2 days ago she was a seen here in the emergency department and prescribed pain medication and discharge patient states that she went to her pharmacy and was then able to get her pain medication before it was closed. She returns tonight with complaints of additional pain. Review of Systems General: Reports: 10 or more systems reviewed and unremarkable except in HPI and below GI: Reports: abdominal pain PFSH ED PFSH: Medical History History of diabetes mellitus Sinus pause Hemochromatosis Atherosclerotic heart disease of [place] coronary artery with unstable angina pectoris CAD (coronary artery disease) COPD (chronic obstructive pulmonary disease) NSAID long-term use Smoking addiction Status post chemoradiation Vaginal tumors Nocturnal hypoxia Cirrhosis Chest pain Hypertension Surgical History Hx of appendectomy Hx of colonoscopy with polypectomy 10 yrs ago H/O vaginal surgery Family History Denies family history of Colon cancer Ovarian cancer Diabetes Heart disease Hypercholesteremia Breast cancer Hypertension Uterine cancer Thyroid disease Stroke Social History Smoking and tobacco/nicotine status: former use of tobacco/nicotine Quit status (tobacco/nicotine): has quit using Year quit tobacco: July 2022 Former quit date comment: smoked 47 years Alcohol intake: never Substance/Drug Use: never Lives independently: Yes Household members: significant other Marital status: Single Physical Exam Narrative: EXAM NARRATIVE: Constitutional: the patient appears well nourished and of normal development. Vital signs as documented. No acute distress at present. Alert and oriented-to person, place, time and situation. Head, eyes, ears, nose, mouth, throat: Normocephalic, atraumatic. Pupils-equal, round, reactive to light. No scleral icterus. Normal-appearing external ears. Normal appearing nasal turbinates, no drainage. No obvious oral lesions, posterior oropharynx without erythema or exudates. Neck: Supple, trachea is midline, no lymphadenopathy, no jugular venous distension, thyromegaly, or carotid bruits. Carotid upstrokes are brisk bilaterally. Lungs: clear to auscultation to all lung botello. Symmetrical rise and fall of chest, no obvious signs of increased work of breathing at present. Cardiac: Regular rate and rhythm, positive S1, S2. No murmurs, rubs or gallops that I can appreciate Abdomen: Soft, midline surgical incision to the abdomen with surgical manisha no signs of infection or drainage., normal active bowel sounds to all quadrants. No palpable masses, no organomegaly and abdominal bruits. Extremities: 2+ pulses in the upper extremities that are equal bilaterally, 2+ pulses in the lower extremities that are equal bilaterally. Non-edematous. Moves all extremities well, sensation to all extremities are noted. Skin: Warm, dry, intact. Course Vital Signs: Vital signs: Vital Signs Temperature 98.8 F 06/06/23 03:27 Pulse Rate 106 H 06/06/23 03:27 Respiratory Rate 16 06/06/23 03:27 Blood Pressure 150/88 06/06/23 03:27 Pulse Oximetry 97 06/06/23 03:27 Oxygen Delivery Me thod Nasal Cannula 06/06/23 03:27 Oxygen Flow Rate 3 06/06/23 03:27 MDM - Abdominal Pain Medical Decision Making Physical exam completed and documented I will provide the patient p.o. pain medication and have encouraged her to pick her pain medication up from the pharmacy later today. Medical Records I reviewed the patient's medical records. No radiology studies performed this visit Discharge Plan Discharge Patient Disposition: Home Clinical Impression: Acute postoperative abdominal pain Condition: Stable Prescriptions: No Action nitroglycerin 0.4 mg tablet, sublingual 0.4 mg sublingual Q5M PRN (Reason: chest pain) Qty: 30 2RF Rx Instructions: do not exceed 3 doses per episode bumetanide 1 mg tablet 1 mg PO QAM Qty: 90 2RF (DME) Diabetic Shoes with Custom inserts See Rx Instructions .Route .MEDSUPPLY Qty: 1 0RF Rx Instructions: As directed by Cookie Brewster albuterol sulfate 90 mcg/actuation HFA aerosol inhaler 2 inh INHALATION Q4H PRN (Reason: shortness of breath or wheezing) Qty: 18 0RF Anoro Ellipta 62.5-25 mcg/actuation blister with device 1 inh INHALATION DAILY ketorolac 10 mg tablet 10 mg PO Q8H PRN (Reason: pain) Qty: 30 0RF albuterol sulfate 2.5 mg /3 mL (0.083 %) solution for nebulization 2.5 mg inhalation Q4H PRN (Reason: Shortness Of Breath) fluoxetine 40 mg capsule 40 mg PO QAM hydralazine 25 mg tablet 25 mg PO BID amlodipine 2.5 mg tablet 2.5 mg PO QAM fluticasone propion-salmeterol [Advair Diskus] 500-50 mcg/dose blister with device 1 inh INHALATION BID metoprolol tartrate 25 mg tablet 25 mg PO BID Victoza 3-Alessandro 0.6 mg/0.1 mL (18 mg/3 mL) pen injector 1.8 mg SUBCUT QAM Eliquis 5 mg tablet 5 mg PO BID naproxen 500 mg tablet 500 mg PO BID PRN (Reason: pain) Qty: 20 0RF hydrocodone-acetaminophen 7.5-325 mg tablet 1 tab PO Q8H PRN (Reason: Pain) gabapentin 300 mg capsule 300 mg PO TID amoxicillin-pot clavulanate 875-125 mg tablet 1 tab PO Q12H Qty: 10 0RF ondansetron 4 mg tablet,disintegrating 4 mg PO Q6H PRN (Reason: nausea and vomiting) Qty: 14 0RF Percocet 5-325 mg tablet 1 tab PO Q6H PRN (Reason: pain) Qty: 30 0RF triamcinolone acetonide 0.1 % ointment 1 applic TOPICAL BID Miralax 17 gram powder in packet 17 g PO DAILY PRN (Reason: constipation) Qty: 14 0RF Discharge Orders: Discharge ED (Routine); Ordered 06/06/23 Ordered By: Chaz Romero Referrals: Ryann Burk [Primary Care Provider] - Discharge Diet: Usual diet Discharge Activity: Resume usual activity Patient Instructions: Abdominal Pain (ED), Opioid Safety, Pain Management Activity Restrictions/Additional Instructions: Activity Restrictions/Additional Instructions: Thank you for choosing [facility] for your healthcare needs today. Please realize that you were seen in the Emergency Department and that we are providing you with an emergency medical screening exam and this may not be a complete and all inclusive of all the testing and or medical work-up that you may need to determine your ailment or severity of your illness. It is very important that you follow-up as instructed with your Primary care provider or Specialist for additional evaluation and to discuss your medical treatment plan. Coding Level of Care Code ED Art History Instructor for Ann Machuca
[2023-06-06] MEDS: HYDROcodone-acetaminophen 5-325 mg Tablet 2 TAB PO (04:09)
[2023-06-06 04:18] VITALS: BP 150/88; PULSE 106; RESP 16; TEMP 37.1; O2SAT 97
== END 2023-06-06 04:20 | disposition home or self-care (01) ==
PROVIDERS: Emergency Provider Internal Medicine; PCP Family Medicine
DX: G89.18 Other acute postprocedural pain (principal); R10.9 Unspecified abdominal pain; Z79.01 Long term (current) use of anticoagulants
CPT/HCPCS: 99283

== ENCOUNTER 2023-06-09 21:53 | Emergency (ER) | payer MEDICAID, SELFPAY ==
[2023-06-09 21:54] VITALS: BP 128/64; PULSE 81; RESP 16; TEMP 36.6; O2SAT 97
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
[2023-06-09] MEDS: TRAMadol 50 mg Tablet PO (22:21)
[2023-06-09 22:43] LABS: Add Urine Microscopic? YES; Bilirubin Urine Neg (Negative); Blood Urine 3+ (Negative); Glucose Urine UA Norm (Normal); Ketones Urine 1+ (Negative); Leukocyte Esterase Urine 2+ (Negative); Nitrate Urine Negative (Negative); Protein Urine 1+ (Negative); RBC Urine 25-40 /hpf (0-2); Urine Appearance Hazy (CLEAR); Urine Color Yellow (Yellow); Urobilinogen Urine Neg (Negative); WBC Urine 25-40 /hpf (0-5); pH Urine 5 (5-7)
[2023-06-09 22:44] LABS: Add Urine Culture? Yes; Bacteria Urine 2+ /hpf; Mucus Urine 2+ /hpf
[2023-06-09] MEDS: cephALEXin 500 mg Capsule PO (22:57)
== END 2023-06-09 22:59 | disposition home or self-care (01) ==
PROVIDERS: Emergency Provider Emergency Medicine; PCP Family Medicine
DX: N30.01 Acute cystitis with hematuria (principal); Z79.01 Long term (current) use of anticoagulants; Z87.891 Personal history of nicotine dependence; E11.9 Type 2 diabetes mellitus without complications; I25.10 Atherosclerotic heart disease of native coronary artery without angina pectoris; J44.9 Chronic obstructive pulmonary disease, unspecified; I10 Essential (primary) hypertension
CPT/HCPCS: 81001; 87077; 87086; 87186; 99283

== ENCOUNTER 2023-06-15 08:13 | Emergency (ER) | payer MEDICAID, SELFPAY ==
[2023-06-15 08:19] VITALS: BP 128/97; PULSE 92; RESP 20; TEMP 36.9; O2SAT 99
--- NOTE | 2023-06-15 09:01 | PC.NURSE ---
21 KATELIN REMOVED FROM PATIENT ABDOMEN. PATIENT TOLERATED WELL.
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
--- NOTE | 2023-06-15 09:04 | PC.PHAR ---
pt states she takes care of her own medications-pt states she is still taking amlodipine 2.5mg qam ext shows last filled 04/21/23 30d/s-metoprolol tartrate 25mg bid ext shows last filled 04/21/23 30d/s-pt states she also has a advair diskus and anoro inhaler ext doesnt show when last filled-pt states no longer takes bumetanide 1mg qam-eliquis 5mg bid-prozac 40mg qam-hydralazine 25mg bid-norco [id number]-anxmnaw-naproxen 500 or triamcinolone acetonide ointment-pt states only taking the medications entered
== END 2023-06-15 09:15 | disposition home or self-care (01) ==
PROVIDERS: Emergency Provider Family Medicine; PCP Family Medicine
DX: Z48.02 Encounter for removal of sutures (principal); Z87.891 Personal history of nicotine dependence; E11.9 Type 2 diabetes mellitus without complications; I25.10 Atherosclerotic heart disease of native coronary artery without angina pectoris; J44.9 Chronic obstructive pulmonary disease, unspecified; I10 Essential (primary) hypertension
CPT/HCPCS: 99281

== ENCOUNTER 2023-06-15 19:44 | Emergency (ER) | payer MEDICAID, SELFPAY ==
--- NOTE | 2023-06-15 19:46 | XRR_ITS ---
PROCEDURE INFORMATION: Exam: XR Chest Exam date and time: 06/15/2023 8:30 PM Age: 57 years old Clinical indication: Shortness of breath; Additional info: SOB TECHNIQUE: Imaging protocol: Radiologic exam of the chest. Views: 1 view. COMPARISON: CR XR chest 1V portable [id number] 05/23/2023 7:41 AM FINDINGS: Lungs: Mild improvement of left lingular and left lower lobe atelectasis versus pneumonia. Pleural spaces: A left pleural effusion has resolved. No pneumothorax. Heart/Mediastinum: Stable moderate enlargement of the cardiac silhouette. Mediastinal contours are unremarkable. Vasculature: Stable vascular calcifications in the aorta. Bones/joints: Degenerative changes in the spine and shoulders. Postsurgical changes consistent with previous fusion in the lower cervical spine. Osseous findings are stable. XR/XR chest 1V portable [id number] IMPRESSION: 1. Mild improvement of left lingular and left lower lobe atelectasis versus pneumonia. Recommend followup chest imaging to ensure complete resolution of these findings. 2. A left pleural effusion has resolved. 3. Incidental/nonacute findings are listed in the report.
[2023-06-15 19:47] VITALS: BP 164/74; PULSE 98; RESP 18; TEMP 36.6; O2SAT 96
[2023-06-15 20:40] LABS: Basophils # 0.1 10^3/uL (0.0-0.1); Basophils % 0.6 %; Eosinophils # 0.2 10^3/uL (0.0-0.8); Hematocrit 32.6 % (36-47); Lymphocytes # 2.1 10^3/uL (0.8-4.8); Lymphocytes % 24.8 %; Mean Corpuscular HGB Conc 29.8 g/dL (30-55); Mean Corpuscular Hemoglobin 30.2 pg (27-33); Mean Corpuscular Volume 101.6 fl (85-98); Mean Platelet Volume 10.9 fL (7.4-10.4); Monocytes # 0.8 10^3/uL (0.2-0.9); Monocytes % 9.8 %; Neutrophils # 5.33 10^3/uL (1.8-7.7); Neutrophils % 61.9 %; Nucleated Red Blood Cells # 0.1 /100WBC; Nucleated Red Blood Cells % 0.9 %; Platelet Count 135 10^3/cmm (157-399); Red Blood Count 3.21 10^6/uL (3.85-5.65); Red Cell Distribution Width 21.2 % (12.1-15.1)
[2023-06-15 21:12] LABS: Alanine Aminotransferase 13 U/L (0-33); Albumin Level 3.4 g/dL (3.5-5.2); Alkaline Phosphatase 116 U/L (35-105); Anion Gap 15.6 (5-19); Aspartate Amino Transferase 15 U/L (0-32); Blood Urea Nitrogen 16 mg/dL (6-20); Calcium 9.4 mg/dL (8.5-10.5); Carbon Dioxide 26 mmol/L (22-29); Chloride 104 mmol/L (98-107); Creatinine Clr Calc Pharmacy 123.6977; Globulin 3.9 g/dL (1.3-4.6); Glomerular Filtration Rate 127.2 mL/min (90-130); Glucose 176 mg/dL (65-115); NT Pro B Type Natriuretic Pept 719 pg/mL (0-125); Osmolality Calculated 299 mOsm/kg (285-295); Potassium 3.6 mmol/L (3.5-5.1); Sodium 142 mmol/L (136-145); Total Bilirubin 0.2 mg/dL (0.15-1.2); Total Protein 7.3 g/dL (6.6-8.7)
[2023-06-15 21:54] VITALS: BP 139/67; PULSE 99; RESP 18; O2SAT 99
[2023-06-15 22:44] VITALS: BP 130/76; PULSE 97; RESP 18; O2SAT 99
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
[2023-06-15 23:36] VITALS: BP 130/71; PULSE 94; RESP 20; O2SAT 97
== END 2023-06-15 23:37 | disposition home or self-care (01) ==
PROVIDERS: Emergency Medicine; Emergency Provider Internal Medicine; PCP Family Medicine
DX: R06.00 Dyspnea, unspecified (principal); F41.9 Anxiety disorder, unspecified; Z87.891 Personal history of nicotine dependence; E11.9 Type 2 diabetes mellitus without complications; I25.10 Atherosclerotic heart disease of native coronary artery without angina pectoris; J44.9 Chronic obstructive pulmonary disease, unspecified; I10 Essential (primary) hypertension
CPT/HCPCS: 36415; 71045; 80053; 83880; 85025; 99284

== ENCOUNTER 2023-06-20 17:36 | Emergency (ER) | payer MEDICAID, SELFPAY ==
[2023-06-20 17:49] VITALS: BP 157/90; PULSE 95; RESP 20; TEMP 37.2; O2SAT 94; BMI 31.9
--- NOTE | 2023-06-20 18:54 | CTR_ITS ---
PROCEDURE INFORMATION: Exam: CT Abdomen And Pelvis With Contrast Exam date and time: 06/20/2023 7:20 PM Age: 57 years old Clinical indication: Abdominal pain; Localized; Right upper quadrant (ruq); Prior surgery; Surgery date: <1 month; Surgery type: Splenectomy within last month. Appy. Vaginal; Patient HX: C/O ruq pain; Additional info: Ruq pain recent splenectomy TECHNIQUE: Imaging protocol: Computed tomography of the abdomen and pelvis with contrast. Radiation optimization: All CT scans at this facility use at least one of these dose optimization techniques: automated exposure control; mA and/or kV adjustment per patient size (includes targeted exams where dose is matched to clinical indication); or iterative reconstruction. Contrast material: OMNI 350; Contrast volume: 100 ml; Contrast route: INTRAVENOUS (IV); COMPARISON: CT abdomen pelvis w con* [id number] 05/19/2023 9:22 PM RADIATION DOSE METRICS: Total DLP (mGy-cm): 836.2 FINDINGS: Pleural spaces: Small left-sided pleural effusion with opacities in the lingula and left lower lobe. Liver: Normal. No mass. Gallbladder and bile ducts: Normal. No calcified stones. No ductal dilation. Pancreas: Normal. No ductal dilation. Spleen: Status post splenectomy with postsurgical changes noted in the surgical bed. There is a hyperattenuating 1.6 cm rounded structure in the splenic bed measuring 98 Hounsfield units which is indeterminate but may represent a pseudoaneurysm but is incompletely assessed on this examination. Adrenal glands: Normal. No mass. Kidneys and ureters: Normal. No hydronephrosis. Stomach and bowel: Unremarkable. No obstruction. No mucosal thickening. Appendix: No evidence of appendicitis. Intraperitoneal space: Unremarkable. No free air. No significant fluid collection. Vasculature: Unremarkable. No abdominal aortic aneurysm. Lymph nodes: Unremarkable. No enlarged lymph nodes. Urinary bladder: Unremarkable as visualized. Reproductive: Unremarkable as visualized. Bones/joints: Unremarkable. No acute fracture. Soft tissues: Unremarkable. CT/CT abdomen pelvis w con* [id number] IMPRESSION: 1. Small left-sided pleural effusion with opacities in the lingula and left lower lobe. 2. Status post splenectomy with postsurgical changes noted in the surgical bed. There is a hyperattenuating 1.6 cm rounded structure in the splenic bed measuring 98 Hounsfield units which is indeterminate but may represent a pseudoaneurysm but is incompletely assessed on this examination. No large hematoma in the left upper quadrant. No free air or fluid in the abdomen or pelvis. 3. No abnormalities noted in the right upper quadrant.
[2023-06-20 19:04] LABS: Basophils % 0.5 %; Eosinophils # 0.3 10^3/uL (0.0-0.8); Eosinophils % 3.8 %; Hematocrit 32.6 % (36-47); Lymphocytes # 1.7 10^3/uL (0.8-4.8); Lymphocytes % 26.4 %; Mean Corpuscular HGB Conc 30.4 g/dL (30-55); Mean Corpuscular Hemoglobin 30.7 pg (27-33); Mean Corpuscular Volume 101.2 fl (85-98); Mean Platelet Volume 10.8 fL (7.4-10.4); Monocytes # 0.9 10^3/uL (0.2-0.9); Neutrophils # 3.66 10^3/uL (1.8-7.7); Neutrophils % 55.7 %; Nucleated Red Blood Cells # 0.1 /100WBC; Nucleated Red Blood Cells % 1.2 %; Platelet Count 117 10^3/cmm (157-399); Red Blood Count 3.22 10^6/uL (3.85-5.65); Red Cell Distribution Width 22.1 % (12.1-15.1); White Blood Count 6.56 10^3/uL (3.29-11.43)
[2023-06-20] MEDS: iohexol 350 mg/mL 500 mL Btl (per mL) IV (19:20)
[2023-06-20 19:26] LABS: Alanine Aminotransferase 21 U/L (0-33); Albumin Level 3.6 g/dL (3.5-5.2); Alkaline Phosphatase 152 U/L (35-105); Anion Gap 15.3 (5-19); Aspartate Amino Transferase 22 U/L (0-32); Blood Urea Nitrogen 15 mg/dL (6-20); C Reactive Protein 39.9 mg/L (0.0-4.9); Calcium 9.5 mg/dL (8.5-10.5); Carbon Dioxide 28 mmol/L (22-29); Chloride 103 mmol/L (98-107); Globulin 3.9 g/dL (1.3-4.6); Glucose 118 mg/dL (65-115); Osmolality Calculated 298 mOsm/kg (285-295); Potassium 3.3 mmol/L (3.5-5.1); Sodium 143 mmol/L (136-145); Total Bilirubin 0.2 mg/dL (0.15-1.2); Total Protein 7.5 g/dL (6.6-8.7)
[2023-06-20 19:27] LABS: Alcohol Level < 10 mg/dL (0-10)
[2023-06-20 19:28] LABS: Add Urine Microscopic? NO; Charge for UA Resulting for Rev
--- NOTE | 2023-06-20 19:28 | W.ED.ABDPA2 ---
HPI - Abdominal Pain General: Chief Complaint: Abdominal Pain Stated Complaint: abd pain Time Seen by Provider: 06/20/23 18:41 History of Present Illness: 57-year-old female who is status post open splenectomy. This was done 3 weeks ago. She presents today complaining of right upper quadrant pain radiating into her back. This is a new complaint for her. She has had abdominal pain on and off since her surgery. She is having no pain on the left. No fever. She has been nauseated, but no vomiting. No diarrhea. She says she has had normal bowel movements. Associated Symptoms: Reports nausea; Denies diarrhea, fever(s) and vomiting Review of Systems Const: Denies: fever(s) ENMT: Denies: throat pain Card: Denies: chest pain or palpitations Resp: Reports: dyspnea; Denies: productive cough or non-productive cough GI: Reports: abdominal pain and nausea; Denies: vomiting or diarrhea PFSH ED PFSH: Medical History History of diabetes mellitus Sinus pause Hemochromatosis Atherosclerotic heart disease of [place] coronary artery with unstable angina pectoris CAD (coronary artery disease) COPD (chronic obstructive pulmonary disease) NSAID long-term use Smoking addiction Status post chemoradiation Vaginal tumors Nocturnal hypoxia Cirrhosis Chest pain Hypertension Surgical History Hx of appendectomy Hx of colonoscopy with polypectomy 10 yrs ago H/O vaginal surgery Family History Denies family history of Colon cancer Ovarian cancer Diabetes Heart disease Hypercholesteremia Breast cancer Hypertension Uterine cancer Thyroid disease Stroke Social History Smoking and tobacco/nicotine status: former use of tobacco/nicotine Quit status (tobacco/nicotine): has quit using Year quit tobacco: July 2022 Former quit date comment: smoked 47 years Alcohol intake: never Substance/Drug Use: never Lives independently: Yes Household members: significant other Marital status: Single Physical Exam Const: COMMON NORMALS: no acute distress GENERAL APPEARANCE: cooperative and appears older than stated age HENMT: COMMON NORMALS: normocephalic, atraumatic and Normal external nose present HEAD & SCALP: normocephalic and atraumatic FACE & SINUS: normal facial exam and face symmetric NOSE: Normal external nose present Eye: COMMON NORMALS: Equal, round and reactive pupils present and EOMs intact bilaterally PUPIL: Yes Equal, round and reactive pupils present Neck/C-Spine: GENERAL: Yes trachea midline Chest: CHEST: Yes Symmetrical chest wall rise Resp: COMMON NORMALS: normal respiratory effort, No retractions, No use of accessory muscles and clear to auscultation bilaterally AUSCULTATION: clear to auscultation bilaterally Cardio: COMMON NORMALS: regular rate and regular rhythm RATE: regular rate RHYTHM: regular rhythm GI: COMMON NORMALS: Normal to inspection, nondistended, normoactive bowel sounds present PALPATION: Yes Tenderness to palpation present (GI) Details: RUQ Extremity: COMMON NORMALS: no pedal edema Neuro: CHERI COMA SCALE: document GCS findings [place] coma scale eye opening: Spontaneous [place] coma scale verbal response: Orientated [place] coma scale motor response: Obey commands Che[place] coma scale total score: 15 SENSORY EXAM: Yes extremities (intact) Psych: COMMON NORMALS: speech normal SPEECH: Yes normal speech Skin: COMMON NORMALS: no rashes or lesions noted GENERAL SKIN EXAM: no rashes or lesions noted Course Vital Signs: Vital signs: Vital Signs Temperature 99 F 06/20/23 17:49 Pulse Rate 95 06/20/23 17:49 Respiratory Rate 20 H 06/20/23 17:49 Blood Pressure 157/90 06/20/23 17:49 Pulse Oximetry 94 06/20/23 17:49 Oxygen Delivery Me thod Room Air 06/20/23 17:49 MDM - Abdominal Pain Medical Decision Making Hemoglobin is stable from prior. White blood cell count is 7. Potassium is 3.3. Other laboratory not remarkable. Liver enzymes are essentially normal. Urinalysis is negative. CT does not show any problem in the right upper quadrant. There appears to be a small mass in the splenic bed, with no active bleeding or hematoma. Pain is epigastric and right upper quadrant. She will be allowed discharge. Treatment for gastritis. Close outpatient follow-up. Lab Data 06/20/23 18:56 06/20/23 18:56 Labs/Radiology: Radiology Impressions Abdomen/Pelvis CT 06/20/23 18:54 IMPRESSION: 1. Small left-sided pleural effusion with opacities in the lingula and left lower lobe. 2. Status post splenectomy with postsurgical changes noted in the surgical bed. There is a hyperattenuating 1.6 cm rounded structure in the splenic bed measuring 98 Hounsfield units which is indeterminate but may represent a pseudoaneurysm but is incompletely assessed on this examination. No large hematoma in the left upper quadrant. No free air or fluid in the abdomen or pelvis. 3. No abnormalities noted in the right upper quadrant. Laboratory Results WBC 6.56 10^3/uL (3.29-11.43) 06/20/23 18:56 RBC 3.22 10^6/uL (3.85-5.65) L 06/20/23 18:56 Hgb 9.90 g/dL (11.27-16.99) L 06/20/23 18:56 Hct 32.6 % (36-47) L 06/20/23 18:56 MCV 101.2 fl (85-98) H 06/20/23 18:56 MCH 30.7 pg (27-33) 06/20/23 18:56 MCHC 30.4 g/dL (30-55) 06/20/23 18:56 RDW 22.1 % (12.1-15.1) H 06/20/23 18:56 Plt Count 117 10^3/cmm (157-399) L 06/20/23 18:56 MPV 10.8 fL (7.4-10.4) H 06/20/23 18:56 Neut % (Auto) 55.7 % 06/20/23 18:56 Lymph % (Auto) 26.4 % 06/20/23 18:56 [place] % (Auto) 13.0 % 06/20/23 18:56 Eos % (Auto) 3.8 % 06/20/23 18:56 Baso % (Auto) 0.5 % 06/20/23 18:56 Neut # (Auto) 3.66 10^3/uL (1.8-7.7) 06/20/23 18:56 Lymph # (Auto) 1.7 10^3/uL (0.8-4.8) 06/20/23 18:56 [place] # (Auto) 0.9 10^3/uL (0.2-0.9) 06/20/23 18:56 Eos # (Auto) 0.3 10^3/uL (0.0-0.8) 06/20/23 18:56 Baso # (Auto) 0.0 10^3/uL (0.0-0.1) 06/20/23 18:56 Nucleated RBC % (auto) 1.2 % 06/20/23 18:56 Nucleated RBCs # 0.1 /100WBC 06/20/23 18:56 Sodium 143 mmol/L (136-145) 06/20/23 18:56 Potassium 3.3 mmol/L (3.5-5.1) L 06/20/23 18:56 Chloride 103 mmol/L (98-107) 06/20/23 18:56 Carbon Dioxide 28 mmol/L (22-29) 06/20/23 18:56 Anion Gap 15.3 (5-19) 06/20/23 18:56 BUN 15 mg/dL (6-20) 06/20/23 18:56 Creatinine 0.6 mg/dL (0.5-0.9) 06/20/23 18:56 GFR Calculation 103.0 mL/min (90-130) 06/20/23 18:56 Glucose 118 mg/dL (65-115) H 06/20/23 18:56 Calculated Osmolality 298 mOsm/kg (285-295) H 06/20/23 18:56 Calcium 9.5 mg/dL (8.5-10.5) 06/20/23 18:56 Total Bilirubin 0.2 mg/dL (0.15-1.2) 06/20/23 18:56 AST 22 U/L (0-32) 06/20/23 18:56 ALT 21 U/L (0-33) 06/20/23 18:56 Alkaline Phosphatase 152 U/L (35-105) H 06/20/23 18:56 C-Reactive Protein 39.9 mg/L (0.0-4.9) H 06/20/23 18:56 Total Protein 7.5 g/dL (6.6-8.7) 06/20/23 18:56 Albumin 3.6 g/dL (3.5-5.2) 06/20/23 18:56 Globulin 3.9 g/dL (1.3-4.6) 06/20/23 18:56 Urine Color Colorless (Yellow) 06/20/23 19:17 Urine Appearance Clear (CLEAR) 06/20/23 19:17 Urine pH 6 (5-7) 06/20/23 19:17 Ur Specific [place] 1.010 (1.005-1.030) 06/20/23 19:17 Urine Protein Neg (Negative) 06/20/23 19:17 Urine Glucose (UA) Norm (Normal) 06/20/23 19:17 Urine Ketones Negative (Negative) 06/20/23 19:17 Urine Blood Neg (Negative) 06/20/23 19:17 Urine Nitrate Negative (Negative) 06/20/23 19:17 Urine Bilirubin Neg (Negative) 06/20/23 19:17 Urine Urobilinogen Neg mg/dL (Negative) 06/20/23 19:17 Ur Leukocyte Esterase Negative (Negative) 06/20/23 19:17 Ethyl Alcohol < 10 mg/dL (0-10) 06/20/23 18:56 All radiology interpretation(s) finalized by discharge Discharge Plan Discharge Patient Disposition: Home Clinical Impression: Abdominal pain Qualifiers: Abdominal location: upper abdomen, unspecified Qualified Code(s): R10.10 - Upper abdominal pain, unspecified Condition: Stable Prescriptions: New sucralfate 1 gram tablet 1 g PO TID 28 Days Qty: 84 0RF Prevacid 30 mg capsule,delayed release(DR/EC) 30 mg PO DAILY Qty: 30 0RF No Action nitroglycerin 0.4 mg tablet, sublingual 0.4 mg sublingual Q5M PRN (Reason: chest pain) Qty: 30 2RF Rx Instructions: do not exceed 3 doses per episode (DME) Diabetic Shoes with Custom inserts See Rx Instructions .Route .MEDSUPPLY Qty: 1 0RF Rx Instructions: As directed by Cookie Brewster albuterol sulfate 90 mcg/actuation HFA aerosol inhaler 2 inh INHALATION Q4H PRN (Reason: shortness of breath or wheezing) Qty: 18 0RF Anoro Ellipta 62.5-25 mcg/actuation blister with device 1 inh INHALATION DAILY olanzapine 2.5 mg tablet 2.5 mg PO BID PRN (Reason: Anxiety) ondansetron 8 mg tablet,disintegrating 8 mg PO Q8H PRN (Reason: Nausea And Vomiting) oxycodone-acetaminophen 10-325 mg tablet 1 tab PO BID MDD 2 tabs PRN (Reason: Pain) Brilinta 90 mg tablet 90 mg PO BID albuterol sulfate 2.5 mg /3 mL (0.083 %) solution for nebulization 2.5 mg inhalation Q4H PRN (Reason: Shortness Of Breath) amlodipine 2.5 mg tablet 2.5 mg PO QAM fluticasone propion-salmeterol [Advair Diskus] 500-50 mcg/dose blister with device 1 inh INHALATION BID metoprolol tartrate 25 mg tablet 25 mg PO BID Victoza 3-Alessandro 0.6 mg/0.1 mL (18 mg/3 mL) pen injector 1.8 mg SUBCUT QAM gabapentin 300 mg capsule 600 mg PO TID Discharge Orders: Discharge ED (Routine); Ordered 06/20/23 Ordered By: Sergio Lovell Referrals: Ryann Burk [Primary Care Provider] - 1-3 days Patient Instructions: Abdominal Pain (ED), Opioid Safety, Pain Management Activity Restrictions/Additional Instructions: Return for fever greater than 100, vomiting liquids or medications, worsening pain despite treatment, other concerning symptoms. See your doctor next week. Coding Level of Care Code ED Commercial Credit Specialist for Ann Machuca
[2023-06-20 19:42] LABS: Bilirubin Urine Neg (Negative); Blood Urine Neg (Negative); Glucose Urine UA Norm (Normal); Ketones Urine Negative (Negative); Leukocyte Esterase Urine Negative (Negative); Nitrate Urine Negative (Negative); Protein Urine Neg (Negative); Urine Appearance Clear (CLEAR); Urine Color Colorless (Yellow); Urobilinogen Urine Neg (Negative); pH Urine 6 (5-7)
[2023-06-20] MEDS: ondansetron 2 mg/ML SDV 2 mL 4 MG IVP (19:59)
[2023-06-20] MEDS: morphine 4 mg/mL SDV 1 mL IVP (19:59)
[2023-06-20] MEDS: lidocaine 2% viscous 15 ML, aluminum-mag hydrox-simethicon 30 ML, sucralfate oral liq 1 GM PO (20:52)
[2023-06-20] MEDS: pantoprazole DR 40 mg Tablet PO (20:52)
[2023-06-20 21:37] VITALS: BP 157/90; PULSE 95; RESP 20; TEMP 37.2; O2SAT 94
== END 2023-06-20 21:38 | disposition home or self-care (01) ==
PROVIDERS: Emergency Provider Emergency Medicine; PCP Family Medicine
DX: R10.11 Right upper quadrant pain (principal); Z87.891 Personal history of nicotine dependence; E11.9 Type 2 diabetes mellitus without complications; I25.10 Atherosclerotic heart disease of native coronary artery without angina pectoris; J44.9 Chronic obstructive pulmonary disease, unspecified; I10 Essential (primary) hypertension
CPT/HCPCS: 36415; 74177; 80053; 80307; 81003; 85025; 86140; 96374; 96375; 99285; J2270; J2405; Q9967

== ENCOUNTER 2023-06-22 17:56 | Emergency (ER) | payer MEDICAID, SELFPAY ==
[2023-06-22 18:03] VITALS: BP 144/82; PULSE 97; RESP 17; TEMP 37.2; O2SAT 94; BMI 31.4
--- NOTE | 2023-06-22 18:06 | ECG_ITS ---
[facility] Test Date: 2023-06-22 Pat Name: Le Barnhart Department: Room: Gender: Female Lot Boss: : 1965 Requested By: Jonathan Rice Order Number: [id number] Jessica MD: Ivis Drake M.D. Measurements Intervals [place] Rate: 98 P: 42 ME: 162 QRS: 41 QRSD: 82 T: -45 QT: 330 QTc: 422 Interpretive Statements SINUS RHYTHM POSSIBLE LEFT ATRIAL ENLARGEMENT [-0.1mV P-WAVE IN V1/V2] POSSIBLE INFERIOR MYOCARDIAL INFARCTION , OF INDETERMINATE AGE [30 ms Q WAVE IN II/aVF] Compared to ECG 05/27/2023 16:56:51 No significant changes Electronically Signed On 06-22-2023 18:31:09 CDT by Ivis Drake M.D. [id number]
--- NOTE | 2023-06-22 18:06 | XRR_ITS ---
PROCEDURE INFORMATION: Exam: XR Chest Exam date and time: 06/22/2023 6:10 PM Age: 57 years old Clinical indication: Pain; Chest pressure; Additional info: Cp TECHNIQUE: Imaging protocol: Radiologic exam of the chest. Views: 1 view. COMPARISON: CR (CHEST, ) 06/15/2023 8:30 PM FINDINGS: Lungs: Mild ill-defined opacity in the left lung base. Pleural spaces: The left lateral costophrenic sulcus is blunted. No pneumothorax. Heart/Mediastinum: There is mild enlargement of the cardiac silhouette. Bones/joints: Lower cervical fusion noted. Bones are unremarkable otherwise. XR/XR chest 1V portable [id number] IMPRESSION: Blunted left lateral costophrenic sulcus similar to the finding on 06/15/2023. Possible atelectasis or consolidation in the lung base verse pleural fluid or prominent epicardial fat pad.
--- NOTE | 2023-06-22 18:16 | ED_ITS ---
HPI - Chest Pain 2 General: Chief Complaint: Chest Pain Stated Complaint: cp Time Seen by Provider: 06/22/23 18:06 Source: patient Mode of arrival: ambulatory Limitations: no limitations History of Present Illness: 57-year-old female very well-known to e ER's been seen here multiple times states that today she started having some chest pain that started 3 hours ago states that she is also concerned she had some left leg swelling. She took nitro aspirin at home with no relief. Denies any radiation of her pain denies any cough or fever Associated symptoms: Deny abdominal pain, dyspnea, fever(s), nausea or vomiting Review of Systems 2 Const: Denies: fever(s), chills, body aches or change in appetite ENMT: Denies: throat pain or dental pain Card: Denies: chest pain Resp: Denies: dyspnea GI: Denies: abdominal pain, nausea, vomiting or diarrhea Musc: Denies: neck pain or back pain Skin/Breast: Denies: rash Neuro: Denies: headache(s) PFSH ED 2 PFSH: Medical History History of diabetes mellitus Sinus pause Hemochromatosis Atherosclerotic heart disease of [place] coronary artery with unstable angina pectoris CAD (coronary artery disease) COPD (chronic obstructive pulmonary disease) NSAID long-term use Smoking addiction Status post chemoradiation Vaginal tumors Nocturnal hypoxia Cirrhosis Chest pain Hypertension Surgical History Hx of appendectomy Hx of colonoscopy with polypectomy 10 yrs ago H/O vaginal surgery Family History Denies family history of Colon cancer Ovarian cancer Diabetes Heart disease Hypercholesteremia Breast cancer Hypertension Uterine cancer Thyroid disease Stroke Social History Smoking and tobacco/nicotine status: former use of tobacco/nicotine Quit status (tobacco/nicotine): has quit using Year quit tobacco: July 2022 Former quit date comment: smoked 47 years Alcohol intake: never Substance/Drug Use: never Lives independently: Yes Household members: significant other Marital status: Single Physical Exam 2 Const: COMMON NORMALS: no acute distress, patient oriented x3 and healthy appearing HENMT: COMMON NORMALS: normocephalic and atraumatic HEAD & SCALP: n ormocephalic and atraumatic Neck/C-Spine: COMMON NORMALS: full ROM and supple Chest: COMMONS NORMALS: normal inspection of the chest Resp: COMMON NORMALS: normal respiratory effort Cardio: COMMON NORMALS: regular rate, regular rhythm and No murmurs present (Cardio) RATE: regular rate RHYTHM: regular rhythm GI: COMMON NORMALS: Normal to inspection, nondistended, normoactive bowel sounds present, Soft to palpation, non-tender and no masses PALPATION: Yes Soft to palpation Extremity: COMMON NORMALS: normal to inspection and full ROM Neuro: COMMON NORMALS: patient oriented x3, moves all extremities and no focal motor deficits Psych: COMMON NORMALS: mental status grossly normal, Normal thought process present and cooperative THOUGHT PROCESS: Normal thought process present Skin: COMMON NORMALS: no rashes or lesions noted and no wounds GENERAL SKIN EXAM: no rashes or lesions noted Course 2 Vital Signs: Vital signs: Vital Signs Temperature 98.9 F 06/22/23 18:03 Pulse Rate 95 06/22/23 19:30 Respiratory Rate 17 06/22/23 18:03 Blood Pressure 134/92 06/22/23 20:22 Pulse Oximetry 97 06/22/23 18:55 Oxygen Delivery Me thod Nasal Cannula 06/22/23 18:03 Oxygen Flow Rate 3 06/22/23 18:03 MDM - Chest Pain Medical Decision Making Patient presents here with chest pain patient's troponins here are negative. She has been well-appearing here in no distress ultrasound of her left leg showed no DVT she stable for discharge follow-up PCP return if worsening. Medical Records I reviewed the patient's medical records. Lab Data I reviewed the patient's lab results. 06/22/23 18:20 06/22/23 18:20 Radiology Impressions Chest X-Ray 06/22/23 18:06 IMPRESSION: Blunted left lateral costophrenic sulcus similar to the finding on 06/15/2023. Possible atelectasis or consolidation in the lung base verse pleural fluid or prominent epicardial fat pad. Venous Duplex 06/22/23 18:16 IMPRESSION: No evidence of deep vein thrombosis. Laboratory Results WBC 8.24 10^3/uL (3.29-11.43) 06/22/23 18:20 RBC 3.29 10^6/uL (3.85-5.65) L 06/22/23 18:20 Hgb 10.10 g/dL (11.27-16.99) L 06/22/23 18:20 Hct 34.0 % (36-47) L 06/22/23 18:20 MCV 103.3 fl (85-98) H 06/22/23 18:20 MCH 30.7 pg (27-33) 06/22/23 18:20 MCHC 29.7 g/dL (30-55) L 06/22/23 18:20 RDW 22.1 % (12.1-15.1) H 06/22/23 18:20 Plt Count 112 10^3/cmm (157-399) L 06/22/23 18:20 MPV 10.3 fL (7.4-10.4) 06/22/23 18:20 Neut % (Auto) 63.9 % 06/22/23 18:20 Lymph % (Auto) 20.4 % 06/22/23 18:20 [place] % (Auto) 11.2 % 06/22/23 18:20 Eos % (Auto) 3.3 % 06/22/23 18:20 Baso % (Auto) 0.6 % 06/22/23 18:20 Neut # (Auto) 5.27 10^3/uL (1.8-7.7) 06/22/23 18:20 Lymph # (Auto) 1.7 10^3/uL (0.8-4.8) 06/22/23 18:20 [place] # (Auto) 0.9 10^3/uL (0.2-0.9) 06/22/23 18:20 Eos # (Auto) 0.3 10^3/uL (0.0-0.8) 06/22/23 18:20 Baso # (Auto) 0.1 10^3/uL (0.0-0.1) 06/22/23 18:20 Nucleated RBC % (auto) 0.5 % 06/22/23 18:20 Nucleated RBCs # 0.0 /100WBC 06/22/23 18:20 Sodium 145 mmol/L (136-145) 06/22/23 18:20 Potassium 4.0 mmol/L (3.5-5.1) 06/22/23 18:20 Chloride 106 mmol/L (98-107) 06/22/23 18:20 Carbon Dioxide 28 mmol/L (22-29) 06/22/23 18:20 Anion Gap 15.0 (5-19) 06/22/23 18:20 BUN 19 mg/dL (6-20) 06/22/23 18:20 Creatinine 0.7 mg/dL (0.5-0.9) 06/22/23 18:20 GFR Calculation 86.2 mL/min (90-130) L 06/22/23 18:20 Glucose 160 mg/dL (65-115) H 06/22/23 18:20 Calculated Osmolality 306 mOsm/kg (285-295) H 06/22/23 18:20 Calcium 9.4 mg/dL (8.5-10.5) 06/22/23 18:20 Total Bilirubin 0.2 mg/dL (0.15-1.2) 06/22/23 18:20 AST 17 U/L (0-32) 06/22/23 18:20 ALT 17 U/L (0-33) 06/22/23 18:20 Alkaline Phosphatase 139 U/L (35-105) H 06/22/23 18:20 Troponin T Baseline 18 ng/L (0-10) H 06/22/23 18:20 Troponin T 120 Minute 17.39 ng/L (0-10) H 06/22/23 20:01 Delta Troponin T -0.61 ABS# (0-10) L 06/22/23 20:01 Total Protein 6.9 g/dL (6.6-8.7) 06/22/23 18:20 Albumin 3.6 g/dL (3.5-5.2) 06/22/23 18:20 Globulin 3.3 g/dL (1.3-4.6) 06/22/23 18:20 Lipase 16 U/L (13-60) 06/22/23 18:20 All radiology interpretation(s) finalized by discharge EKG Data EKG 1: I personally reviewed and interpreted this EKG as follows: EKG interpretation date: 06/22/23 EKG interpretation time: 17:58 Interpretation: nsr hr [address] r t t wave abnormalities qrs 82 qtc 385 Discharge Plan Discharge Patient Disposition: Home Clinical Impression: Chest pain Condition: Stable Prescriptions: No Action nitroglycerin 0.4 mg tablet, sublingual 0.4 mg sublingual Q5M PRN (Reason: chest pain) Qty: 30 2RF Rx Instructions: do not exceed 3 doses per episode (DME) Diabetic Shoes with Custom inserts See Rx Instructions .Route .MEDSUPPLY Qty: 1 0RF Rx Instructions: As directed by Cookie Brewster albuterol sulfate 90 mcg/actuation HFA aerosol inhaler 2 inh INHALATION Q4H PRN (Reason: shortness of breath or wheezing) Qty: 18 0RF Anoro Ellipta 62.5-25 mcg/actuation blister with device 1 inh INHALATION DAILY olanzapine 2.5 mg tablet 2.5 mg PO BID PRN (Reason: Anxiety) ondansetron 8 mg tablet,disintegrating 8 mg PO Q8H PRN (Reason: Nausea And Vomiting) oxycodone-acetaminophen 10-325 mg tablet 1 tab PO BID MDD 2 tabs PRN (Reason: Pain) Brilinta 90 mg tablet 90 mg PO BID albuterol sulfate 2.5 mg /3 mL (0.083 %) solution for nebulization 2.5 mg inhalation Q4H PRN (Reason: Shortness Of Breath) amlodipine 2.5 mg tablet 2.5 mg PO QAM fluticasone propion-salmeterol [Advair Diskus] 500-50 mcg/dose blister with device 1 inh INHALATION BID metoprolol tartrate 25 mg tablet 25 mg PO BID Victoza 3-Alessandro 0.6 mg/0.1 mL (18 mg/3 mL) pen injector 1.8 mg SUBCUT QAM gabapentin 300 mg capsule 600 mg PO TID sucralfate 1 gram tablet 1 g PO TID 28 Days Qty: 84 0RF Prevacid 30 mg capsule,delayed release(DR/EC) 30 mg PO DAILY Qty: 30 0RF Discharge Orders: Discharge ED (Routine); Ordered 06/22/23 Ordered By: Jonathan Rice Referrals: Ryann Burk [Primary Care Provider] - 1-3 days Discharge Diet: Advance as tolerated Discharge Activity: Resume usual activity Patient Instructions: Chest Pain (ED) Coding Level of Care Code ED Hardboard Supervisor for Mele Brigette
--- NOTE | 2023-06-22 18:16 | USR_ITS ---
PROCEDURE INFORMATION: Exam: US Duplex Left Lower Extremity Veins, Limited Exam date and time: 06/22/2023 6:48 PM Age: 57 years old Clinical indication: Edema, localized; Lower extremity, left; Additional info: Swelling TECHNIQUE: Imaging protocol: Real-time duplex ultrasound of the left extremity with 2-D mariscal scale, color Doppler flow and spectral waveform analysis including responses to compression and other maneuvers (when performed) with image documentation. Limited exam focused on the left lower extremity veins. COMPARISON: CT abdomen pelvis w con* [id number] 06/20/2023 7:20 PM FINDINGS: Left deep veins: Unremarkable. The common femoral, femoral, proximal profunda femoral and popliteal veins are patent without thrombus. Normal Doppler waveforms. Normal compressibility and/or augmentation response. Superficial veins: Greater saphenous vein at the saphenofemoral junction is patent without thrombus. Soft tissues: Unremarkable. US/[place] [id number] IMPRESSION: No evidence of deep vein thrombosis.
[2023-06-22 18:29] LABS: Basophils # 0.1 10^3/uL (0.0-0.1); Basophils % 0.6 %; Eosinophils # 0.3 10^3/uL (0.0-0.8); Eosinophils % 3.3 %; Lymphocytes # 1.7 10^3/uL (0.8-4.8); Lymphocytes % 20.4 %; Mean Corpuscular HGB Conc 29.7 g/dL (30-55); Mean Corpuscular Hemoglobin 30.7 pg (27-33); Mean Corpuscular Volume 103.3 fl (85-98); Mean Platelet Volume 10.3 fL (7.4-10.4); Monocytes # 0.9 10^3/uL (0.2-0.9); Monocytes % 11.2 %; Neutrophils # 5.27 10^3/uL (1.8-7.7); Neutrophils % 63.9 %; Nucleated Red Blood Cells % 0.5 %; Platelet Count 112 10^3/cmm (157-399); Red Blood Count 3.29 10^6/uL (3.85-5.65); Red Cell Distribution Width 22.1 % (12.1-15.1); White Blood Count 8.24 10^3/uL (3.29-11.43)
[2023-06-22 18:50] LABS: Troponin(5th) Baseline 18 ng/L (0-10)
[2023-06-22 18:55] VITALS: BP 155/63; PULSE 95; O2SAT 97
[2023-06-22 18:55] LABS: Alanine Aminotransferase 17 U/L (0-33); Albumin Level 3.6 g/dL (3.5-5.2); Alkaline Phosphatase 139 U/L (35-105); Aspartate Amino Transferase 17 U/L (0-32); Blood Urea Nitrogen 19 mg/dL (6-20); Calcium 9.4 mg/dL (8.5-10.5); Carbon Dioxide 28 mmol/L (22-29); Chloride 106 mmol/L (98-107); Creatinine Clr Calc Pharmacy 92.4188; Globulin 3.3 g/dL (1.3-4.6); Glomerular Filtration Rate 86.2 mL/min (90-130); Glucose 160 mg/dL (65-115); Lipase 16 U/L (13-60); Osmolality Calculated 306 mOsm/kg (285-295); Sodium 145 mmol/L (136-145); Total Bilirubin 0.2 mg/dL (0.15-1.2); Total Protein 6.9 g/dL (6.6-8.7)
[2023-06-22 19:05] VITALS: BP 138/70; PULSE 98
[2023-06-22] MEDS: acetaminophen 325 mg Tablet 650 MG PO (19:05)
[2023-06-22 19:30] VITALS: BP 144/91; PULSE 95
[2023-06-22] MEDS: FUROsemide 10 mg/mL SDV 4mL 40 MG IVP (20:04)
--- NOTE | 2023-06-22 20:06 | ECG_ITS ---
[facility] Test Date: 2023-06-22 Pat Name: Le Barnhart Department: Room: Gender: Female [employer]unch [employer] Member: : 1965 Requested By: Jonathan Rice Order Number: [id number] Jessica MD: David Escalante M.D. Measurements Intervals [place] Rate: 88 P: 62 TN: 155 QRS: 75 QRSD: 86 T: -45 QT: 353 QTc: 428 Interpretive Statements SINUS RHYTHM POSSIBLE INFERIOR MYOCARDIAL INFARCTION , OF INDETERMINATE AGE [30 ms Q WAVE IN II/aVF] Compared to ECG 06/22/2023 17:58:45 No significant changes Electronically Signed On 06-23-2023 11:46:22 CDT by David Escalante M.D. [email or web address] [facility] Island[facility] [email or web address] [id number]
[2023-06-22 20:22] VITALS: BP 134/92
[2023-06-22 20:29] LABS: Troponin 5 2HR 17.39 ng/L (0-10)
[2023-06-22 20:31] LABS: Troponin 5 2HR Delta -0.61 ABS# (0-10)
[2023-06-22 20:42] VITALS: BP 151/88; PULSE 96; O2SAT 94
== END 2023-06-22 20:43 | disposition home or self-care (01) ==
PROVIDERS: Emergency Provider Emergency Medicine; PCP Family Medicine
DX: R07.9 Chest pain, unspecified (principal); Z87.891 Personal history of nicotine dependence; E11.9 Type 2 diabetes mellitus without complications; I25.10 Atherosclerotic heart disease of native coronary artery without angina pectoris; J44.9 Chronic obstructive pulmonary disease, unspecified; I10 Essential (primary) hypertension
CPT/HCPCS: 71045; 80053; 83690; 84484; 85025; 93005; 93971; 96374; 99285; J1940

== ENCOUNTER 2023-06-25 17:36 | Inpatient (IN) | payer MEDICAID, SELFPAY ==
[2023-06-25] VITALS (20 sets, daily range): BP systolic 136–183; BP diastolic 65–115; PULSE 93–110; RESP 18–39; TEMP 36.7–37.2; O2SAT 93–99; BMI 31.4; BMI 34.0
--- NOTE | 2023-06-25 17:41 | XRR_ITS ---
PROCEDURE INFORMATION: Exam: XR Chest Exam date and time: 06/25/2023 7:20 PM Age: 57 years old Clinical indication: Chest wall pain; Additional info: Cp TECHNIQUE: Imaging protocol: Radiologic exam of the chest. Views: 1 view. COMPARISON: CT angio chest PE protcl [id number] 06/25/2023 7:00 PM FINDINGS: Tubes, catheters and devices: EKG monitoring leads overlie the thoracic wall. Lungs: Nonspecific opacity at the left lung base. Pleural spaces: No pleural effusion or pneumothorax. Heart/Mediastinum: Mild cardiomegaly. A coronary artery stent overlies the left side of the heart. Bones/joints: An ACDF plate overlies the lower thoracic spine. Soft tissues: Prior right mastectomy. XR/XR chest 1V portable [id number] IMPRESSION: Nonspecific opacity at the left lung base. This may represent atelectasis or in the appropriate clinical setting, pneumonia.
--- NOTE | 2023-06-25 17:44 | ECG_ITS ---
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 Measurements Intervals Mcgrath Rate: 101 P: 50 PA: 164 QRS: 65 QRSD: 82 T: -47 QT: 325 QTc: 423 Interpretive Statements SINUS TACHYCARDIA MODERATE T-WAVE ABNORMALITY, CONSIDER INFERIOR ISCHEMIA [-0.1+ mV T-WAVE IN II/aVF] Compared to ECG 06/22/2023 20:07:22 T-wave abnormality now present Possible ischemia now present Sinus rhythm no longer present Myocardial infarct finding no longer present Electronically Signed On 06-26-2023 17:05:43 CDT by Ivis Drake M.D. [id number] f
--- NOTE | 2023-06-25 17:48 | ED_ITS ---
HPI - Chest Pain 2 General: Chief Complaint: Chest Pain Stated Complaint: chest pain, left leg swollen Time Seen by Provider: 06/25/23 17:41 Source: patient Mode of arrival: ambulatory History of Present Illness: 57-year-old female very well-known to [facility] ER she states she been having chest pain for over a week she was seen here on the first for the same. She has also been having left leg pain she states she has had swelling to the leg as well she had an ultrasound that ruled out DVT. She denies any fevers denies any cough denies any vomiting or diarrhea Associated symptoms: Deny abdominal pain, dyspnea, fever(s), nausea or vomiting Review of Systems 2 Const: Denies: fever(s), chills, body aches or change in appetite ENMT: Denies: throat pain or dental pain Card: Reports: chest pain Resp: Denies: dyspnea GI: Denies: abdominal pain, nausea, vomiting or diarrhea : Denies: dysuria Musc: Reports: extremity pain and extremity swelling; Denies: neck pain or back pain Skin/Breast: Denies: rash Neuro: Denies: headache(s) PFSH ED 2 PFSH: Medical History History of diabetes mellitus Sinus pause Hemochromatosis Atherosclerotic heart disease of [place] coronary artery with unstable angina pectoris CAD (coronary artery disease) COPD (chronic obstructive pulmonary disease) NSAID long-term use Smoking addiction Status post chemoradiation Vaginal tumors Nocturnal hypoxia Cirrhosis Chest pain Hypertension Surgical History Hx of appendectomy Hx of colonoscopy with polypectomy 10 yrs ago H/O vaginal surgery Family History Denies family history of Colon cancer Ovarian cancer Diabetes Heart disease Hypercholesteremia Breast cancer Hypertension Uterine cancer Thyroid disease Stroke Social History Smoking and tobacco/nicotine status: former use of tobacco/nicotine Quit status (tobacco/nicotine): has quit using Year quit tobacco: July 2022 Former quit date comment: smoked 47 years Alcohol intake: never Substance/Drug Use: never Lives independently: Yes Household members: significant other Marital status: Single Physical Exam 2 Const: COMMON NORMALS: no acute distress, patient oriented x3 and healthy appearing HENMT: COMMON NORMALS: normocephalic and atraumatic HEAD & SCALP: n ormocephalic and atraumatic Eye: COMMON NORMALS: Equal, round and reactive pupils present and EOMs intact bilaterally PUPIL: Yes Equal, round and reactive pupils present Neck/C-Spine: COMMON NORMALS: full ROM and supple Chest: COMMONS NORMALS: normal inspection of the chest Resp: COMMON NORMALS: normal respiratory effort, No retractions, No use of accessory muscles and clear to auscultation bilaterally AUSCULTATION: clear to auscultation bilaterally Cardio: COMMON NORMALS: regular rate, regular rhythm and No murmurs present (Cardio) RATE: regular rate RHYTHM: regular rhythm Extremity: COMMON NORMALS: full ROM NARRATIVE EXTREMITY EXAM: Tenderness to left lower leg distal pulses sensation intact Neuro: COMMON NORMALS: patient oriented x3, moves all extremities and no focal motor deficits Psych: COMMON NORMALS: mental status grossly normal, Normal thought process present and cooperative THOUGHT PROCESS: Normal thought process present Skin: COMMON NORMALS: no rashes or lesions noted and no wounds GENERAL SKIN EXAM: no rashes or lesions noted Course 2 Vital Signs: Vital signs: Vital Signs Temperature 98.0 F 06/25/23 17:43 Pulse Rate 100 06/25/23 19:21 Respiratory Rate 20 H 06/25/23 19:21 Blood Pressure 144/83 06/25/23 19:21 Pulse Oximetry 99 06/25/23 19:21 Oxygen Delivery Me thod Nasal Cannula 06/25/23 19:21 Oxygen Flow Rate 3 06/25/23 17:43 MDM - Chest Pain Medical Decision Making Patient presents here with chest pain CT does show a pulmonary embolism her blood pressure here has been stable oxygen has been stable at her baseline I spoke to hospitalist will start heparin drip admit to the cardiac stepdown unit. Medical Records I reviewed the patient's medical records. Lab Data I reviewed the patient's lab results. 06/25/23 18:05 06/25/23 18:05 Radiology Impressions Chest X-Ray 06/25/23 17:41 IMPRESSION: Nonspecific opacity at the left lung base. This may represent atelectasis or in the appropriate clinical setting, pneumonia. Chest CTA 06/25/23 18:52 IMPRESSION: 1. Positive for pulmonary emboli to segmental branches of the right lower lobe and right upper lobe. 2. There is a stent in the proximal LAD coronary artery. 3. Nonspecific consolidation in the left lower lobe favored to represent atelectasis. In the appropriate clinical setting, this may represent pneumonia. 4. Status post splenectomy with postsurgical changes and a small to moderate infiltrating hematoma in the left upper lobe extending to the pararenal space. THIS REPORT CONTAINS FINDINGS THAT MAY BE CRITICAL TO PATIENT CARE. The findings were verbally communicated via telephone conference with PHAM ALNE at 8:05 PM CDT on 06/25/2023. The findings were acknowledged and understood. Laboratory Results WBC 7.69 10^3/uL (3.29-11.43) 06/25/23 18:05 RBC 3.51 10^6/uL (3.85-5.65) L 06/25/23 18:05 Hgb 10.60 g/dL (11.27-16.99) L 06/25/23 18:05 Hct 36.3 % (36-47) 06/25/23 18:05 MCV 103.4 fl (85-98) H 06/25/23 18:05 MCH 30.2 pg (27-33) 06/25/23 18:05 MCHC 29.2 g/dL (30-55) L 06/25/23 18:05 RDW 21.8 % (12.1-15.1) H 06/25/23 18:05 Plt Count 116 10^3/cmm (157-399) L 06/25/23 18:05 MPV 11.9 fL (7.4-10.4) H 06/25/23 18:05 Neut % (Auto) 57.2 % 06/25/23 18:05 Lymph % (Auto) 26.9 % 06/25/23 18:05 [place] % (Auto) 12.2 % 06/25/23 18:05 Eos % (Auto) 2.2 % 06/25/23 18:05 Baso % (Auto) 0.7 % 06/25/23 18:05 Neut # (Auto) 4.40 10^3/uL (1.8-7.7) 06/25/23 18:05 Lymph # (Auto) 2.1 10^3/uL (0.8-4.8) 06/25/23 18:05 [place] # (Auto) 0.9 10^3/uL (0.2-0.9) 06/25/23 18:05 Eos # (Auto) 0.2 10^3/uL (0.0-0.8) 06/25/23 18:05 Baso # (Auto) 0.1 10^3/uL (0.0-0.1) 06/25/23 18:05 Nucleated RBC % (auto) 0.9 % 06/25/23 18:05 Nucleated RBCs # 0.1 /100WBC 06/25/23 18:05 Sodium 144 mmol/L (136-145) 06/25/23 18:05 Potassium 3.7 mmol/L (3.5-5.1) 06/25/23 18:05 Chloride 107 mmol/L (98-107) 06/25/23 18:05 Carbon Dioxide 26 mmol/L (22-29) 06/25/23 18:05 Anion Gap 14.7 (5-19) 06/25/23 18:05 BUN 19 mg/dL (6-20) 06/25/23 18:05 Creatinine 0.5 mg/dL (0.5-0.9) 06/25/23 18:05 GFR Calculation 127.2 mL/min (90-130) 06/25/23 18:05 Glucose 166 mg/dL (65-115) H 06/25/23 18:05 Calculated Osmolality 304 mOsm/kg (285-295) H 06/25/23 18:05 Calcium 9.5 mg/dL (8.5-10.5) 06/25/23 18:05 Total Bilirubin 0.2 mg/dL (0.15-1.2) 06/25/23 18:05 AST 13 U/L (0-32) 06/25/23 18:05 ALT 17 U/L (0-33) 06/25/23 18:05 Alkaline Phosphatase 144 U/L (35-105) H 06/25/23 18:05 Troponin T Baseline 19 ng/L (0-10) H 06/25/23 18:05 NT-Pro-B Natriuret Pep 1103 pg/mL (0-125) H 06/25/23 18:05 Total Protein 7.2 g/dL (6.6-8.7) 06/25/23 18:05 Albumin 3.9 g/dL (3.5-5.2) 06/25/23 18:05 Globulin 3.3 g/dL (1.3-4.6) 06/25/23 18:05 Lipase 23 U/L (13-60) 06/25/23 18:05 All radiology interpretation(s) finalized by discharge EKG Data EKG 1: I personally reviewed and interpreted this EKG as follows: EKG interpretation date: 06/25/23 EKG interpretation time: 17:44 Interpretation: sinus tach hr [address] elevation t wave inviorsion III and AVF unchanged from previous qrs 82 qtc 383 Discharge Plan Discharge Patient Disposition: Admitted As Inpatient Clinical Impression: Pulmonary embolism Condition: Stable Prescriptions: No Action nitroglycerin 0.4 mg tablet, sublingual 0.4 mg sublingual Q5M PRN (Reason: chest pain) Qty: 30 2RF Rx Instructions: do not exceed 3 doses per episode (DME) Diabetic Shoes with Custom inserts See Rx Instructions .Route .MEDSUPPLY Qty: 1 0RF Rx Instructions: As directed by Cookie Brewster furosemide 40 mg tablet 40 mg PO DAILY PRN (Reason: fluid retention) Qty: 30 1RF potassium chloride [Klor-Con 10] 10 mEq tablet extended release 10 meq PO DAILY Qty: 30 1RF albuterol sulfate 90 mcg/actuation HFA aerosol inhaler 2 inh INHALATION Q4H PRN (Reason: shortness of breath or wheezing) Qty: 18 0RF Anoro Ellipta 62.5-25 mcg/actuation blister with device 1 inh INHALATION DAILY olanzapine 2.5 mg tablet 2.5 mg PO BID PRN (Reason: Anxiety) ondansetron 8 mg tablet,disintegrating 8 mg PO Q8H PRN (Reason: Nausea And Vomiting) oxycodone-acetaminophen 10-325 mg tablet 1 tab PO BID MDD 2 tabs PRN (Reason: Pain) Brilinta 90 mg tablet 90 mg PO BID albuterol sulfate 2.5 mg /3 mL (0.083 %) solution for nebulization 2.5 mg inhalation Q4H PRN (Reason: Shortness Of Breath) amlodipine 2.5 mg tablet 2.5 mg PO QAM fluticasone propion-salmeterol [Advair Diskus] 500-50 mcg/dose blister with device 1 inh INHALATION BID metoprolol tartrate 25 mg tablet 25 mg PO BID Victoza 3-Alessandro 0.6 mg/0.1 mL (18 mg/3 mL) pen injector 1.8 mg SUBCUT QAM gabapentin 300 mg capsule 600 mg PO TID sucralfate 1 gram tablet 1 g PO TID 28 Days Qty: 84 0RF Prevacid 30 mg capsule,delayed release(DR/EC) 30 mg PO DAILY Qty: 30 0RF Referrals: Ryann Burk [Primary Care Provider] - Coding Level of Care Code ED Malted Milk Mixer for Chg Brigette
[2023-06-25 18:14] LABS: Basophils # 0.1 10^3/uL (0.0-0.1); Basophils % 0.7 %; Eosinophils # 0.2 10^3/uL (0.0-0.8); Eosinophils % 2.2 %; Hematocrit 36.3 % (36-47); Lymphocytes # 2.1 10^3/uL (0.8-4.8); Lymphocytes % 26.9 %; Mean Corpuscular HGB Conc 29.2 g/dL (30-55); Mean Corpuscular Hemoglobin 30.2 pg (27-33); Mean Corpuscular Volume 103.4 fl (85-98); Mean Platelet Volume 11.9 fL (7.4-10.4); Monocytes # 0.9 10^3/uL (0.2-0.9); Monocytes % 12.2 %; Neutrophils % 57.2 %; Nucleated Red Blood Cells # 0.1 /100WBC; Nucleated Red Blood Cells % 0.9 %; Platelet Count 116 10^3/cmm (157-399); Red Blood Count 3.51 10^6/uL (3.85-5.65); Red Cell Distribution Width 21.8 % (12.1-15.1); White Blood Count 7.69 10^3/uL (3.29-11.43)
--- NOTE | 2023-06-25 18:16 | PC.NURSE ---
Doppler pedal pulse, left foot, pedal pulse appropriate, BPM 104.
--- NOTE | 2023-06-25 18:24 | PC.NURSE ---
PT REFUSING LASIX AND REFUSING TYLENOL STATING NO. IS HE THAT STUPID?
[2023-06-25 18:29] LABS: Troponin(5th) Baseline 19 ng/L (0-10)
[2023-06-25 18:49] LABS: Alanine Aminotransferase 17 U/L (0-33); Albumin Level 3.9 g/dL (3.5-5.2); Alkaline Phosphatase 144 U/L (35-105); Anion Gap 14.7 (5-19); Aspartate Amino Transferase 13 U/L (0-32); Blood Urea Nitrogen 19 mg/dL (6-20); Calcium 9.5 mg/dL (8.5-10.5); Carbon Dioxide 26 mmol/L (22-29); Chloride 107 mmol/L (98-107); Creatinine Clr Calc Pharmacy 129.3863; Globulin 3.3 g/dL (1.3-4.6); Glomerular Filtration Rate 127.2 mL/min (90-130); Glucose 166 mg/dL (65-115); Lipase 23 U/L (13-60); NT Pro B Type Natriuretic Pept 1103 pg/mL (0-125); Osmolality Calculated 304 mOsm/kg (285-295); Potassium 3.7 mmol/L (3.5-5.1); Sodium 144 mmol/L (136-145); Total Bilirubin 0.2 mg/dL (0.15-1.2); Total Protein 7.2 g/dL (6.6-8.7)
--- NOTE | 2023-06-25 18:52 | CTR_ITS ---
PROCEDURE INFORMATION: Exam: CTA Chest With Contrast Exam date and time: 06/25/2023 7:00 PM Age: 57 years old Clinical indication: Other: Chest pain, leg pain; Additional info: Cp TECHNIQUE: Imaging protocol: Computed tomographic angiography of the chest with contrast. Exam focused on the arteries. 3D rendering (Not supervised by radiologist): MIP and/or 3D reconstructed images were created by the technologist. Radiation optimization: All CT scans at this facility use at least one of these dose optimization techniques: automated exposure control; mA and/or kV adjustment per patient size (includes targeted exams where dose is matched to clinical indication); or iterative reconstruction. Contrast material: OMNI 350; Contrast volume: 55 ml; Contrast route: INTRAVENOUS (IV); COMPARISON: CT angio chest PE protcl [id number] 12/11/2022 8:33 PM RADIATION DOSE METRICS: Total DLP (mGy-cm): 418.48 FINDINGS: Limitations: Streak and motion artifacts limit evaluation. Pulmonary arteries: There is a nonocclusive pulmonary embolus straddling segmental branches to the right lower lobe (images [id number] on series 6). There are downstream subsegmental emboli, poorly visualized due to motion artifact. In the right upper lobe, there is an embolus to a segmental branch (image 149 on series 6). Aorta: There is no thoracic aortic aneurysm or dissection. There is mild scattered atherosclerotic calcification throughout the thoracic aorta. Lungs: Nonspecific consolidation in the left lower lobe favored to represent atelectasis. Pleural spaces: Unremarkable. No pneumothorax. No pleural effusion. Heart: The heart is normal in size. There are no pericardial fluid collections. Heart RV/LV ratio: The RV/LV ratio is 1, borderline for right ventricular strain. Coronary arteries: There is a stent in the proximal LAD coronary artery. Lymph nodes: There are nonenlarged, nonspecific mediastinal lymph nodes. Spleen: Status post splenectomy with postsurgical changes and a small to moderate sized infiltrating hematoma in the left upper lobe extending to the left pararenal space. Bones/joints: No acute fracture. There are 2 subcentimeter sclerotic lesions in the vertebral body of T7, favored to represent bone islands. Soft tissues: There has been a right mastectomy. CT/CT angio chest PE protcl [id number] IMPRESSION: 1. Positive for pulmonary emboli to segmental branches of the right lower lobe and right upper lobe. 2. There is a stent in the proximal LAD coronary artery. 3. Nonspecific consolidation in the left lower lobe favored to represent atelectasis. In the appropriate clinical setting, this may represent pneumonia. 4. Status post splenectomy with postsurgical changes and a small to moderate infiltrating hematoma in the left upper lobe extending to the pararenal space. THIS REPORT CONTAINS FINDINGS THAT MAY BE CRITICAL TO PATIENT CARE. The findings were verbally communicated via telephone conference with PHAM LANE at 8:05 PM CDT on 06/25/2023. The findings were acknowledged and understood.
--- NOTE | 2023-06-25 18:54 | PC.NURSE ---
PT STATES SHE WAS WANTING SOMETHING FOR PAIN, PAIN RATED 10. PT CURRENTLY STATING SHE WANTS NOTHING FOR THE PAIN.
[2023-06-25] MEDS: iohexol 350 mg/mL 500 mL Btl (per mL) IV (19:08)
[2023-06-25] MEDS: morphine 4 mg/mL SDV 1 mL IVP (19:15)
[2023-06-25 20:31] LABS: Troponin 5 2HR 20.36 ng/L (0-10); Troponin 5 2HR Delta 1.36 ABS# (0-10)
--- NOTE | 2023-06-25 21:00 | CTR_ITS ---
PROCEDURE INFORMATION: Exam: CT Head Without Contrast Exam date and time: 06/26/2023 1:11 AM Age: 57 years old Clinical indication: Condition or disease; Other: HX sah; Additional info: HX sah, subdural of hayden TECHNIQUE: Imaging protocol: Computed tomography of the head without contrast. Radiation optimization: All CT scans at this facility use at least one of these dose optimization techniques: automated exposure control; mA and/or kV adjustment per patient size (includes targeted exams where dose is matched to clinical indication); or iterative reconstruction. COMPARISON: CT head wo con* [id number] 04/27/2023 1:40 PM RADIATION DOSE METRICS: Total DLP (mGy-cm): 1087 FINDINGS: Limitations: Streak and motion artifacts limit evaluation. Brain: The small right hemispheric subdural hematoma seen on the comparison examination, is no longer identified. There is no mass effect or midline shift. No territorial edema. There are mild confluent periventricular hypodensities consistent with chronic microischemic changes of white matter. Cerebral ventricles: The ventricles and sulci are appropriate for the patient's age. Paranasal sinuses: There are no air-fluid levels. Mastoid air cells: The visualized mastoid air cells are well aerated. Bones/joints: No acute fracture. Soft tissues: Unremarkable. CT/CT head wo con* [id number] IMPRESSION: 1. The small right hemispheric subdural hematoma is not identified. It may have resolved or may be isodense with CSF. 2. No acute findings. 3. Mild cerebral small-vessel disease.
--- NOTE | 2023-06-25 21:00 | CTR_ITS ---
PROCEDURE INFORMATION: Exam: CT Abdomen And Pelvis Without Contrast Exam date and time: 06/26/2023 1:17 AM Age: 57 years old Clinical indication: Condition or disease; Other: Recent splenectomy; Prior surgery; Surgery date: 1-6 months; Surgery type: Spleen; Additional info: Splenectomy, splenic hematoma TECHNIQUE: Imaging protocol: Computed tomography of the abdomen and pelvis without contrast. Radiation optimization: All CT scans at this facility use at least one of these dose optimization techniques: automated exposure control; mA and/or kV adjustment per patient size (includes targeted exams where dose is matched to clinical indication); or iterative reconstruction. COMPARISON: CT abdomen pelvis w con* [id number] 06/20/2023 7:20 PM RADIATION DOSE METRICS: Total DLP (mGy-cm): 1001.3 FINDINGS: Lungs: See Pleural spaces finding. Pleural spaces: Pqon-wpdhgua-tijb-right pleural effusions with associated atelectasis. Heart: Base of heart is unremarkable as visualized. Coronary arteries: Coronary atherosclerotic disease, [id number]-hd-[id number]. Liver: Normal. No mass. Gallbladder and bile ducts: Normal. No calcified stones. No ductal dilation. Pancreas: Fatty atrophy of the pancreas. Mild fat stranding about the pancreas. Again noted about the pancreatic tail is evolving postsurgical changes, residual fat stranding about the pancreatic tail/surgical bed of the spleen. Spleen: Spleen is surgically absent. Adrenal glands: Normal. No mass. Kidneys and ureters: Stable appearing right extrarenal pelvis. No urinary obstruction. Stomach and bowel: Unremarkable. No obstruction. No mucosal thickening. Appendix: No evidence of appendicitis. Intraperitoneal space: Unremarkable. No free air. No significant fluid collection. Vasculature: Minimal scattered atherosclerotic disease of the visualized aorta and its major branches. Lymph nodes: Unremarkable. No enlarged lymph nodes. Urinary bladder: Bladder is filled with contrast suggesting recent administration. Reproductive: Unremarkable as visualized. Bones/joints: Transitional anatomy is noted with pseudo sacralization of the L5 vertebral body. Grade 1 anterolisthesis of L4 on L5. Soft tissues: Ventral midline abdominal wall postsurgical change. CT/CT abdomen pelvis con [id number] IMPRESSION: 1. Findings suggest pancreatitis. Correlate with laboratory findings and clinical examination. 2. Khyw-xbebnho-esdp-right pleural effusions with associated atelectasis. Superimposed infection is not ruled out. 3. Additional nonacute findings as above.
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
[2023-06-25 21:40] LABS: INR 1.02 (0.8-1.2)
--- NOTE | 2023-06-25 21:40 | PC.NURSE ---
Arrival to ICU: Pt arrived to ICU 9 @2140 via stretcher. Pt is reporting 10/10 pain in her chest and L. leg. See MAR for medication administration. Continuous cardiac monitoring initiated. No open wounds noted, scar on medial abdomen is tender to touch.
[2023-06-25 21:41] LABS: Partial Thromboplastin Time 24.6 SECONDS (23.9-36.7)
--- NOTE | 2023-06-25 21:47 | PC.NURSE ---
At approximately 2100 this nurse assisted resident out of wet depend and into a dry depend and made sure pt was in dry depend before leaving ER.
[2023-06-25 21:49] LABS: Lactic Sepsis W/Reflex 1.5 mmol/L (0.5-2.2)
[2023-06-25] MEDS: pantoprazole 40 mg SDV IVP (21:52)
[2023-06-25] MEDS: HYDROmorphone 1 mg/mL INJ 1 mL 0.5 MG IVP ×2 (21:52→22:44)
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
[2023-06-25 22:10] LABS: C Reactive Protein 21.6 mg/L (0.0-4.9); Thyroid Stimulating Hormone 1.87 uIU/mL (0.27-4.20)
[2023-06-25 22:14] LABS: Glucose Point of Care 128 mg/dL (70-110)
[2023-06-25] MEDS: heparin drip 25,000 UNIT/500 ML PREMIX 25.1499999999999986 UNIT IV (22:37)
--- NOTE | 2023-06-25 22:43 | PC.NURSE ---
Increased BP: Notified Dr. Avery of SBP in the 180's, Pain 10/10, and foul smelling urine @ approximately 2230. Also clarified order for Heparin drip. New order to continue with Heparin drip, Dilaudid 0.5mg IVP ONCE NOW, and urinalysis.
[2023-06-25] MEDS: OLANZapine 5 mg TABLET 2.5 MG PO (22:45)
[2023-06-25 22:52] LABS: Add Urine Microscopic? YES; Amorphous Sediment Urine 1+ /hpf; Bacteria Urine 3+ /hpf; Bilirubin Urine Neg (Negative); Blood Urine Neg (Negative); Glucose Urine UA Norm (Normal); Ketones Urine Negative (Negative); Leukocyte Esterase Urine Negative (Negative); Nitrate Urine Positive (Negative); Protein Urine Neg (Negative); Specific Gravity, Urine 1.015 (1.005-1.030); Sulfosalicylic Acid Urine Negative (Negative); Urine Appearance Cloudy (CLEAR); Urine Color Yellow (Yellow); Urobilinogen Urine Neg (Negative); WBC Urine 0-4 /hpf (0-5); pH Urine 8 (5-7)
[2023-06-25 22:53] LABS: Add Urine Culture? Yes; Triple Phosphate Crystal Urine 0-4 /hpf
--- NOTE | 2023-06-25 23:16 | PC.NURSE ---
UA RESULTS contacted Dr Avery with UA results, nitrates positive. doctor gave order for 1gm rocephen IV q24h
--- NOTE | 2023-06-25 23:41 | ECG_ITS ---
[facility] Test Date: 2023-06-26 Pat Name: Le Barnhart Department: Room: [facility] Gender: Female Sack Keeper: : 1965 Requested By: Jonathan Rice Order Number: [id number] Jessica MD: Ivis Drake M.D. Measurements Intervals [place] Rate: 99 P: 48 [place]: 161 QRS: 71 QRSD: 80 T: -44 QT: 349 QTc: 449 Interpretive Statements SINUS RHYTHM WITH FREQUENT VENTRICULAR PREMATURE COMPLEXES POSSIBLE LEFT ATRIAL ENLARGEMENT [-0.1mV P-WAVE IN V1/V2] MODERATE T-WAVE ABNORMALITY, CONSIDER INFERIOR ISCHEMIA [-0.1+ mV T-WAVE IN II/aVF] Compared to ECG 06/25/2023 17:44:09 Ventricular premature complex(es) now present Sinus tachycardia no longer present T-wave abnormality still present Possible ischemia still present Electronically Signed On 06-26-2023 17:34:02 CDT by Ivis Drake M.D. [email or web address] ([id number]
[2023-06-25 23:43] LABS: Hematocrit 33.7 % (36-47)
[2023-06-25] MEDS: cefTRIAXone 1,000 MG in sodium chloride 0.9% (plus) 50 ML 100 MG IV (23:43)
[2023-06-26] VITALS (60 sets, daily range): BP systolic 106–175; BP diastolic 53–109; PULSE 75–113; RESP 15–39; TEMP 36.6–37.2; O2SAT 91–98
[2023-06-26 00:03] LABS: Troponin 5 6HR 21.65 ng/L (0-10); Troponin 5 6HR Delta 2.65 ng/L (0-12)
[2023-06-26] MEDS: HYDROmorphone 1 mg/mL INJ 1 mL 0.5 MG IVP ×4 (01:55→22:29)
[2023-06-26 04:38] LABS: Partial Thromboplastin Time 40.6 SECONDS (23.9-36.7)
[2023-06-26] MEDS: heparin 5,000 unit/mL INJ 1 mL IV ×2 (04:56→18:20)
[2023-06-26 05:23] LABS: Basophils % 0.5 %; Eosinophils # 0.3 10^3/uL (0.0-0.8); Eosinophils % 3.5 %; Hematocrit 33.4 % (36-47); Lymphocytes # 2.3 10^3/uL (0.8-4.8); Lymphocytes % 26.4 %; Mean Corpuscular HGB Conc 28.7 g/dL (30-55); Mean Corpuscular Hemoglobin 30.1 pg (27-33); Mean Corpuscular Volume 104.7 fl (85-98); Monocytes % 11.3 %; Neutrophils # 4.96 10^3/uL (1.8-7.7); Neutrophils % 57.7 %; Nucleated Red Blood Cells # 0.1 /100WBC; Nucleated Red Blood Cells % 0.6 %; Platelet Count 98 10^3/cmm (157-399); Red Blood Count 3.19 10^6/uL (3.85-5.65); Red Cell Distribution Width 21.5 % (12.1-15.1); White Blood Count 8.59 10^3/uL (3.29-11.43)
[2023-06-26 05:44] LABS: Alanine Aminotransferase 14 U/L (0-33); Alkaline Phosphatase 120 U/L (35-105); Anion Gap 13.6 (5-19); Aspartate Amino Transferase 14 U/L (0-32); Blood Urea Nitrogen 13 mg/dL (6-20); Calcium 8.9 mg/dL (8.5-10.5); Carbon Dioxide 24 mmol/L (22-29); Chloride 105 mmol/L (98-107); Creatinine Clr Calc Pharmacy 168.3999; Globulin 3.7 g/dL (1.3-4.6); Glomerular Filtration Rate 164.5 mL/min (90-130); Glucose 151 mg/dL (65-115); Magnesium 1.8 mg/dL (1.7-2.3); Osmolality Calculated 291 mOsm/kg (285-295); Phosphorus 4.8 mg/dL (2.5-4.5); Potassium 3.6 mmol/L (3.5-5.1); Sodium 139 mmol/L (136-145); Total Bilirubin 0.2 mg/dL (0.15-1.2); Total Protein 6.7 g/dL (6.6-8.7)
--- NOTE | 2023-06-26 07:54 | PC.PHAR ---
Addendum entered by Olya Feliciano 06/26/23 08:12: [facility] STATES ELIQUIS 5 MG WAS DC'D. PT STILL HAS ACTIVE PRESCRIPTIONS FOR THE FOLLOWING MEDS THAT ARE OVERDUE TO FILL: AMLODIPINE 2.5MG EVERY MORNING, BUMETANIDE 1 MG TWICE DAILY, METOPROLOL TARTRATE 25 MG TWICE DAILY, VICTOZA 1.8MG EVERY MORNING, FLUOXETINE 40MG DAILY, AND HYDRALAZINE 25MG TWICE DAILY. PT DID VERIFY SHE TAKES ALL THESE MEDS BUT SEEMED A BIT SEDATED AT THE TIME. 06/26/23 Original Note: WILL CALL [facility] AT 9AM TO VERIFY SEVERAL MEDS WITH LAST FILL DATES MORE THAN 30 DAYS LATE. 06/26/23
[2023-06-26] MEDS: pantoprazole 40 mg SDV IVP (09:20)
[2023-06-26] MEDS: sucralfate 1 gm Tablet PO (09:20)
[2023-06-26] MEDS: OLANZapine 5 mg TABLET 2.5 MG PO (09:20)
[2023-06-26] MEDS: gabapentin 300 mg Capsule 600 MG PO ×3 (09:20→20:45)
[2023-06-26] MEDS: metoprolol tartrate 25 mg Tablet PO ×2 (09:20→18:23)
--- NOTE | 2023-06-26 10:10 | PC.NURSE ---
Pt requested a bath early , family came in to visit she stated she would wait until later. She is still complaining of pain, Dilaudid upped to 1mg , administered now per Dr Angeles. Pt stated she knows she needs to be moving around with the blood clot. She continues to refuse offers to help her reposition in bed or up on chair.
[2023-06-26] MEDS: HYDROmorphone 1 mg/mL INJ 1 mL IVP ×2 (10:13→15:08)
[2023-06-26 10:58] LABS: Partial Thromboplastin Time 64.2 SECONDS (23.9-36.7)
--- NOTE | 2023-06-26 11:00 | PC.NURSE ---
Heparin gtt: PTT 64.2, no change in dose/rate indicated at this time.
[2023-06-26] MEDS: fentaNYL 12 mcg Patch 1 PATCH TRANSDERMA (12:04)
[2023-06-26] MEDS: methylPREDNISolone sod succ 40 mg/mL INJ IVP ×2 (12:04→22:29)
[2023-06-26 12:30] LABS: Hematocrit 35.9 % (36-47)
[2023-06-26] MEDS: oxyCODONE-APAP 10-325 mg Tablet 1 TAB PO ×2 (12:35→20:44)
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
[2023-06-26 17:47] LABS: Partial Thromboplastin Time 50.3 SECONDS (23.9-36.7)
[2023-06-26 18:22] LABS: Glucose Point of Care 210 mg/dL (70-110)
[2023-06-26] MEDS: hyDRALAzine 25 mg Tablet PO (18:23)
[2023-06-26] MEDS: heparin drip 25,000 UNIT/500 ML PREMIX 31 UNIT IV (18:24)
--- NOTE | 2023-06-26 19:27 | PC.NURSE ---
Shift summary: Pt resting in bed. Sinus rhythm on monitor. She had pain control issues today. Mostly that left leg really hurts. She was started on a fentanyl patch, she stated that was helping with the oral pain meds. Pain meds adjusted by Dr Angeles again this evening. She was educated on PE today and last night. She did state she knows she needs to move around more. She remains on heparin gtt, PTT this evening lower, so rate change and bolus admin. She used bedpan without difficulty today At least 750 ml of output, 1 bedpan amount as not measured. Flatulence noted but no BM this sift.
[2023-06-26] MEDS: cyclobenzaprine 10 mg Tablet 5 MG PO (20:45)
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
[2023-06-26] MEDS: cefTRIAXone 1,000 MG in sodium chloride 0.9% (plus) 50 ML 100 MG IV (22:29)
[2023-06-27] VITALS (48 sets, daily range): BP systolic 116–170; BP diastolic 54–96; PULSE 3–87; RESP 14–31; TEMP 36.4–37; O2SAT 89–98
[2023-06-27] MEDS: HYDROmorphone 1 mg/mL INJ 1 mL 0.5 MG IVP ×4 (02:02→13:42)
[2023-06-27 02:07] LABS: Partial Thromboplastin Time 123.7 SECONDS (23.9-36.7)
[2023-06-27] MEDS: oxyCODONE-APAP 10-325 mg Tablet 1 TAB PO ×4 (03:19→22:44)
[2023-06-27 05:35] LABS: Basophils % 0.2 %; Hematocrit 34.6 % (36-47); Lymphocytes # 1.2 10^3/uL (0.8-4.8); Mean Corpuscular HGB Conc 29.5 g/dL (30-55); Mean Corpuscular Hemoglobin 30.1 pg (27-33); Mean Corpuscular Volume 102.1 fl (85-98); Monocytes # 0.4 10^3/uL (0.2-0.9); Monocytes % 3.6 %; Neutrophils # 8.93 10^3/uL (1.8-7.7); Neutrophils % 84.2 %; Nucleated Red Blood Cells # 0.1 /100WBC; Nucleated Red Blood Cells % 0.5 %; Platelet Count 123 10^3/cmm (157-399); Red Blood Count 3.39 10^6/uL (3.85-5.65); Red Cell Distribution Width 20.6 % (12.1-15.1); White Blood Count 10.61 10^3/uL (3.29-11.43)
[2023-06-27 05:56] LABS: Anion Gap 14.3 (5-19); Blood Urea Nitrogen 18 mg/dL (6-20); Calcium 9.5 mg/dL (8.5-10.5); Carbon Dioxide 24 mmol/L (22-29); Chloride 104 mmol/L (98-107); Creatinine Clr Calc Pharmacy 134.7199; Glomerular Filtration Rate 127.2 mL/min (90-130); Glucose 306 mg/dL (65-115); Osmolality Calculated 299 mOsm/kg (285-295); Potassium 4.3 mmol/L (3.5-5.1); Sodium 138 mmol/L (136-145)
[2023-06-27] MEDS: pantoprazole DR 40 mg Tablet PO (06:18)
[2023-06-27 07:21] LABS: Glucose Point of Care 265 mg/dL (70-110)
[2023-06-27 09:03] LABS: Partial Thromboplastin Time 118.5 SECONDS (23.9-36.7)
[2023-06-27] MEDS: fluoxetine 20 mg Capsule 40 MG PO (09:14)
[2023-06-27] MEDS: metoprolol tartrate 25 mg Tablet PO ×2 (09:14→17:19)
[2023-06-27] MEDS: gabapentin 300 mg Capsule 600 MG PO ×3 (09:14→20:44)
[2023-06-27] MEDS: hyDRALAzine 25 mg Tablet PO ×2 (09:14→17:19)
[2023-06-27] MEDS: potassium chloride ER 20 mEq Tablet PO (09:15)
[2023-06-27] MEDS: methylPREDNISolone sod succ 40 mg/mL INJ IVP ×2 (11:17→22:46)
[2023-06-27] MEDS: heparin drip 25,000 UNIT/500 ML PREMIX 25 UNIT IV (11:45)
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
[2023-06-27 13:26] LABS: Glucose Point of Care 238 mg/dL (70-110)
[2023-06-27 15:15] LABS: Partial Thromboplastin Time 67.8 SECONDS (23.9-36.7)
[2023-06-27 17:04] LABS: Glucose Point of Care 302 mg/dL (70-110)
[2023-06-27] MEDS: ipratropium-albuterol 3 mL Neb INHALATION (19:58)
[2023-06-27 20:39] LABS: Glucose Point of Care 330 mg/dL (70-110)
[2023-06-27] MEDS: cyclobenzaprine 10 mg Tablet 5 MG PO (20:43)
[2023-06-27] MEDS: apixaban 5 mg Tablet 10 MG PO (20:44)
[2023-06-27] MEDS: OLANZapine 10 mg TABLET 15 MG PO (20:44)
[2023-06-27] MEDS: cefTRIAXone 1,000 MG in sodium chloride 0.9% (plus) 50 ML 100 MG IV (22:45)
[2023-06-28] VITALS (13 sets, daily range): BP systolic 124–173; BP diastolic 62–97; PULSE 64–91; RESP 16–20; TEMP 36.3–36.6; O2SAT 91–95
[2023-06-28] MEDS: oxyCODONE-APAP 10-325 mg Tablet 1 TAB PO ×3 (02:45→11:41)
--- NOTE | 2023-06-28 04:44 | PC.NURSE ---
Pt requesting more narcotics at this time anxious and tearful stating that pain is 10/10, and she can't stand it . Pt referred again to physician for review of current pain management w/previous dosing. Physician instructed this nurse to con't to monitor patient. Pt informed of physician's instructions to which she replied why is he being so mean to me? Pt offered ice/heat pack, pt at first declined stating it wouldn't help but then decided she would try the hot pack. Upon reentry to the room the patient no longer appears anxious, and is no longer crying. Pt states the WMP feels good, and asks when she can again have her percocet. Pt instructed her percocet was available for administration again @ 0645. Pt now watching t.v. w/o further c/o.
[2023-06-28 05:50] LABS: Basophils % 0.2 %; Hematocrit 35.3 % (36-47); Lymphocytes # 1.1 10^3/uL (0.8-4.8); Lymphocytes % 9.2 %; Mean Corpuscular HGB Conc 29.2 g/dL (30-55); Mean Corpuscular Hemoglobin 30.3 pg (27-33); Mean Corpuscular Volume 103.8 fl (85-98); Mean Platelet Volume 11.3 fL (7.4-10.4); Monocytes # 0.6 10^3/uL (0.2-0.9); Monocytes % 5.4 %; Neutrophils # 9.61 10^3/uL (1.8-7.7); Neutrophils % 81.6 %; Nucleated Red Blood Cells # 0.1 /100WBC; Nucleated Red Blood Cells % 1.2 %; Platelet Count 124 10^3/cmm (157-399); Red Cell Distribution Width 21.4 % (12.1-15.1); White Blood Count 11.79 10^3/uL (3.29-11.43)
[2023-06-28 06:08] LABS: Anion Gap 11.5 (5-19); Blood Urea Nitrogen 20 mg/dL (6-20); Calcium 9.6 mg/dL (8.5-10.5); Carbon Dioxide 27 mmol/L (22-29); Chloride 106 mmol/L (98-107); Glomerular Filtration Rate 127.2 mL/min (90-130); Glucose 282 mg/dL (65-115); Osmolality Calculated 303 mOsm/kg (285-295); Potassium 4.5 mmol/L (3.5-5.1); Sodium 140 mmol/L (136-145)
[2023-06-28 06:40] LABS: Glucose Point of Care 212 mg/dL (70-110)
[2023-06-28] MEDS: cyclobenzaprine 10 mg Tablet 5 MG PO (06:44)
[2023-06-28] MEDS: pantoprazole DR 40 mg Tablet PO (06:44)
[2023-06-28] MEDS: ipratropium-albuterol 3 mL Neb INHALATION ×2 (08:21→11:33)
[2023-06-28] MEDS: fluoxetine 20 mg Capsule 40 MG PO (08:36)
[2023-06-28] MEDS: hyDRALAzine 25 mg Tablet PO (08:36)
[2023-06-28] MEDS: gabapentin 300 mg Capsule 600 MG PO (08:36)
[2023-06-28] MEDS: apixaban 5 mg Tablet 10 MG PO (08:36)
[2023-06-28] MEDS: potassium chloride ER 20 mEq Tablet PO (08:36)
[2023-06-28] MEDS: ondansetron 4 MG Tablet 8 MG PO (11:42)
[2023-06-28] MEDS: methylPREDNISolone sod succ 40 mg/mL INJ IVP (11:42)
[2023-06-28 12:28] LABS: Glucose Point of Care 252 mg/dL (70-110)
[2023-06-28] MEDS: LORazepam 0.5 mg Tablet PO (12:44)
[2023-06-28] MEDS: levalbuterol 1.25 mg/3 mL Neb INHALATION (12:58)
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
--- NOTE | 2023-06-28 15:15 | PC.NURSE ---
Patient is A&Ox3 Respirations even and non-labored on NC 2 liters. Discharge instructions reviewed with patient at this time. Patient verbalized understanding of discharge mediations including how to take the Eliquis and the need to follow up with her primary care doctor in 4 to 7 days. Patient verbalized understanding of discharge instructions
== END 2023-06-28 15:15 | disposition home or self-care (01) | DRG 175 ==
LOC: ER 20:17 → CSU 20:39 → ICU 21:03 → MEDSURG 06-27 18:29
PROVIDERS: Admitting Provider Family Medicine; Emergency Provider Emergency Medicine; PCP Family Medicine; Visit Provider Internal Medicine
DX: I26.94 Multiple subsegmental thrombotic pulmonary emboli without acute cor pulmonale (principal); J96.21 Acute and chronic respiratory failure with hypoxia; Z90.81 Acquired absence of spleen; E11.9 Type 2 diabetes mellitus without complications; I25.10 Atherosclerotic heart disease of native coronary artery without angina pectoris; J44.9 Chronic obstructive pulmonary disease, unspecified; I10 Essential (primary) hypertension; Z87.891 Personal history of nicotine dependence; Z99.81 Dependence on supplemental oxygen; M79.89 Other specified soft tissue disorders; S22.42XD Multiple fractures of ribs, left side, subsequent encounter for fracture with routine healing; V49.9XXD Car occupant (driver) (passenger) injured in unspecified traffic accident, subsequent encounter
CPT/HCPCS: 36415; 36416; 70450; 71045; 71275; 74176; 80048; 80053; 81001; 82962; 83605; 83690; 83735; 83880; 84100; 84145; 84443; 84484; 85014; 85018; 85025; 85610; 85730; 86140; 87077; 87086; 87186; 93005; 93306; 93970; 94640; 94664; 96365; 96366; 96375; 96376; 99214; 99285; C9113; J0696; J1170; J1644; J2270; J2920; J7614; Q0162; Q9967

== ENCOUNTER 2023-07-30 21:35 | Emergency (ER) | payer MEDICAID, SELFPAY ==
[2023-07-30 21:44] VITALS: BP 136/74; PULSE 94; RESP 22; TEMP 36.6; O2SAT 95; BMI 31.2
[2023-07-30 22:36] VITALS: BP 142/93; PULSE 70; RESP 20; O2SAT 95
--- NOTE | 2023-07-30 22:41 | XRR_ITS ---
PROCEDURE INFORMATION: Exam: XR Chest Exam date and time: 07/30/2023 11:34 PM Age: 58 years old Clinical indication: Angina; Additional info: Chest pain TECHNIQUE: Imaging protocol: Radiologic exam of the chest. Views: 1 view. COMPARISON: CR (CHEST, ) 06/25/2023 7:20 PM FINDINGS: Lungs: There are retrocardiac infiltrates. Pleural spaces: There is blunting of bilateral costophrenic angles that might be related to atelectasis or small pleural effusions. Heart/Mediastinum: Unremarkable. No cardiomegaly. Bones/joints: Widening of bilateral acromioclavicular joints, postop. Surgical changes of ACDF. XR/XR chest 1V portable [id number] IMPRESSION: Retrocardiac infiltrates. Possible small bilateral pleural effusions.
--- NOTE | 2023-07-30 22:41 | ECG_ITS ---
[facility] Test Date: 2023-07-31 Pat Name: Le Barnhart Department: Room: Gender: Female [employer]: : 1965 Requested By: Ludwin Peres Order Number: [id number] Jessica MD: David Escalante M.D. Measurements Intervals [place] Rate: 93 P: 54 NV: 167 QRS: 60 QRSD: 87 T: -30 QT: 330 QTc: 411 Interpretive Statements SINUS RHYTHM POSSIBLE LEFT ATRIAL ENLARGEMENT [-0.1mV P-WAVE IN V1/V2] MODERATE T-WAVE ABNORMALITY, CONSIDER INFERIOR ISCHEMIA [-0.1+ mV T-WAVE IN II/aVF] Compared to ECG 07/31/2023 00:57:17 Ventricular premature complex(es) no longer present T-wave abnormality still present Possible ischemia still present Electronically Signed On 07-31-2023 23:31:20 CDT by David Escalante M.D. [email or web address]
[2023-07-30 22:48] LABS: Basophils % 0.6 %; Eosinophils # 0.1 10^3/uL (0.0-0.8); Eosinophils % 2.1 %; Hematocrit 37.7 % (36-47); Lymphocytes # 2.5 10^3/uL (0.8-4.8); Mean Corpuscular Hemoglobin 29.7 pg (27-33); Mean Platelet Volume 10.1 fL (7.4-10.4); Monocytes # 1.1 10^3/uL (0.2-0.9); Monocytes % 17.5 %; Neutrophils # 2.42 10^3/uL (1.8-7.7); Nucleated Red Blood Cells % 0 %; Platelet Count 254 10^3/cmm (157-399); Red Blood Count 3.81 10^6/uL (3.85-5.65); White Blood Count 6.22 10^3/uL (3.29-11.43)
[2023-07-30 23:08] LABS: Troponin(5th) Baseline 20 ng/L (0-10)
[2023-07-30 23:09] LABS: Alanine Aminotransferase 13 U/L (0-33); Albumin Level 3.6 g/dL (3.5-5.2); Alkaline Phosphatase 127 U/L (35-105); Aspartate Amino Transferase 14 U/L (0-32); Blood Urea Nitrogen 22 mg/dL (6-20); Calcium 9.2 mg/dL (8.5-10.5); Carbon Dioxide 28 mmol/L (22-29); Chloride 106 mmol/L (98-107); Creatinine Clr Calc Pharmacy 127.4767; Globulin 3.3 g/dL (1.3-4.6); Glomerular Filtration Rate 126.7 mL/min (90-130); Glucose 227 mg/dL (65-115); Osmolality Calculated 302 mOsm/kg (285-295); Slide Review Slide Review Perform; Sodium 141 mmol/L (136-145); Total Bilirubin 0.2 mg/dL (0.15-1.2); Total Protein 6.9 g/dL (6.6-8.7)
[2023-07-30 23:10] LABS: Anion Gap 11.2 (5-19); Potassium 4.2 mmol/L (3.5-5.1)
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
[2023-07-30 23:14] VITALS: RESP 18
[2023-07-30] MEDS: morphine 4 mg/mL SDV 1 mL 2 MG IVP (23:14)
[2023-07-30 23:45] VITALS: BP 162/78; PULSE 86; RESP 26; O2SAT 96
[2023-07-31 00:53] VITALS: RESP 18
[2023-07-31] MEDS: morphine 4 mg/mL SDV 1 mL IVP (00:53)
--- NOTE | 2023-07-31 00:57 | ECG_ITS ---
[facility] Test Date: 2023-07-31 Pat Name: Le Barnhart Department: Room: Gender: Female Webbing Inspector: : 1965 Requested By: Ludwin Peres Order Number: [id number] Jessica MD: David Escalante M.D. Measurements Intervals [place] Rate: 94 P: 49 SD: 167 QRS: 69 QRSD: 82 T: -35 QT: 325 QTc: 407 Interpretive Statements SINUS RHYTHM WITH FREQUENT VENTRICULAR PREMATURE COMPLEXES WITH OCCASIONAL SUPRAVENTRICULAR PREMATURE COMPLEXES POSSIBLE LEFT ATRIAL ENLARGEMENT [-0.1mV P-WAVE IN V1/V2] MODERATE T-WAVE ABNORMALITY, CONSIDER INFERIOR ISCHEMIA [-0.1+ mV T-WAVE IN II/aVF] Compared to ECG 06/26/2023 00:58:01 No significant changes Electronically Signed On 07-31-2023 9:24:13 CDT by David Escalante M.D. [id number]
[2023-07-31 01:15] VITALS: BP 141/98; PULSE 79; RESP 32; O2SAT 95
[2023-07-31 01:23] LABS: Troponin 5 2HR 20.53 ng/L (0-10); Troponin 5 2HR Delta 0.53 ABS# (0-10)
[2023-07-31 01:50] VITALS: BP 153/94; PULSE 89; RESP 22; O2SAT 95
[2023-07-31 02:07] VITALS: BP 153/94; PULSE 89; RESP 23; O2SAT 95
== END 2023-07-31 02:09 | disposition home or self-care (01) ==
PROVIDERS: Emergency Provider Emergency Medicine; PCP Family Medicine
DX: R07.9 Chest pain, unspecified (principal); Z79.01 Long term (current) use of anticoagulants; Z87.891 Personal history of nicotine dependence; E11.9 Type 2 diabetes mellitus without complications; I25.10 Atherosclerotic heart disease of native coronary artery without angina pectoris; J44.9 Chronic obstructive pulmonary disease, unspecified; I10 Essential (primary) hypertension
CPT/HCPCS: 71045; 80053; 84484; 85025; 93005; 96374; 96376; 99285; J2270

== ENCOUNTER 2023-07-31 21:17 | Inpatient (IN) | payer MEDICAID, SELFPAY ==
[2023-07-31 21:29] VITALS: BP 152/76; PULSE 94; RESP 28; O2SAT 97; BMI 32.4
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
[2023-07-31] MEDS: ipratropium-albuterol 3 mL Neb INHALATION (22:37)
[2023-07-31 22:38] VITALS: PULSE 92; RESP 17; O2SAT 96
[2023-07-31 22:44] VITALS: PULSE 91
[2023-08-01] VITALS (24 sets, daily range): BP systolic 109–154; BP diastolic 62–88; PULSE 85–91; RESP 16–27; TEMP 36.6–36.9; O2SAT 93–99
[2023-08-01] MEDS: methylPREDNISolone sod succ 125 mg/2 mL INJ IVP (00:08)
[2023-08-01] MEDS: ondansetron 2 mg/ML SDV 2 mL 4 MG IVP ×2 (00:08→22:01)
[2023-08-01] MEDS: morphine 4 mg/mL SDV 1 mL IVP (00:09)
[2023-08-01 00:28] LABS: Basophils % 0.6 %; Eosinophils # 0.2 10^3/uL (0.0-0.8); Eosinophils % 2.6 %; Hematocrit 36.5 % (36-47); Lymphocytes # 2.4 10^3/uL (0.8-4.8); Lymphocytes % 35.1 %; Mean Corpuscular HGB Conc 29.9 g/dL (30-55); Mean Corpuscular Hemoglobin 29.4 pg (27-33); Mean Corpuscular Volume 98.4 fl (85-98); Monocytes % 14.9 %; Neutrophils # 3.17 10^3/uL (1.8-7.7); Neutrophils % 46.1 %; Nucleated Red Blood Cells % 0.3 %; Platelet Count 251 10^3/cmm (157-399); Red Blood Count 3.71 10^6/uL (3.85-5.65); Red Cell Distribution Width 19.9 % (12.1-15.1); White Blood Count 6.89 10^3/uL (3.29-11.43)
[2023-08-01 00:40] LABS: Troponin(5th) Baseline 22 ng/L (0-10)
[2023-08-01 00:42] LABS: Alanine Aminotransferase 14 U/L (0-33); Albumin Level 3.5 g/dL (3.5-5.2); Alkaline Phosphatase 126 U/L (35-105); Aspartate Amino Transferase 15 U/L (0-32); Blood Urea Nitrogen 18 mg/dL (6-20); Calcium 9.2 mg/dL (8.5-10.5); Carbon Dioxide 28 mmol/L (22-29); Chloride 104 mmol/L (98-107); Creatinine Clr Calc Pharmacy 162.4194; Globulin 3.4 g/dL (1.3-4.6); Glomerular Filtration Rate 163.9 mL/min (90-130); Glucose 260 mg/dL (65-115); Osmolality Calculated 299 mOsm/kg (285-295); Sodium 139 mmol/L (136-145); Total Bilirubin 0.2 mg/dL (0.15-1.2); Total Protein 6.9 g/dL (6.6-8.7)
--- NOTE | 2023-08-01 01:24 | USCV_ITS ---
Le Barnhart Age: 58 Gender: F : 1965 Exam Date: 08/01/2023 06:04 Ordering Phys: Tanvir Avery MD Technologist: [place] [facility] [place]: sob BP: 150 / 82 HR: 85 Rhythm: Sinus Technical Quality: Adequate MEASUREMENTS (Male / Female) Normal Values 2D ECHO LVOT Diameter 2.2 cm LV Ejection Fraction MOD 2C 52.1 % LV Ejection Fraction 2C AL 52.9 % LA Diameter 3.6 cm RA Systolic Volume 4C AL 36.7 ml RA Systolic Volume 4C MOD 32.2 ml LA Sys Volume AL 79.0 cm cubed LA Sys Volume Index AL 37.8 cm cubed/m squared Aorta at Sinotubular Diameter 2.4 cm M-MODE LA Ao Ratio MM 1.9 AV Cusp Separation MM 2.3 cm DOPPLER AV Peak Velocity 149.0 cm/s LVOT Peak Velocity 115.0 cm/s AV Area Cont Eq vti 3.8 cm squared AV Area Cont Eq pk 2.9 cm squared MV Peak Velocity 111.0 cm/s MV Area PHT 4.3 cm squared Mitral E to A Ratio 1.4 TV Peak Velocity 106.0 cm/s TR Peak Velocity 124.0 cm/s TR Peak Gradient 6.2 mmHg TV Peak E Velocity 85.0 cm/s Right Atrial Pressure 3.0 mmHg Pulmonary Artery Systolic Pressu 9.2 mmHg PV Peak Velocity 109.0 cm/s FINDINGS Left Ventricle Normal LV size with a borderline low ejection fraction of 53%. Hypokinetic basal inferior wall segment with dense endocardium,, suggesting previous IA. Relative hypokinesia of the septum.Grade III/IV diastolic dysfunction (restrictive filling pattern), severely elevated filling pressures. Right Ventricle The right ventricle is normal in size and function. Right Atrium The right atrium is normal in size. Left Atrium Moderately increased left atrial volume 38 ml/m squared. Mitral Valve Trace to mild mitral regurgitation Aortic Valve No gross abnormalities noted Tricuspid Valve Trace tricuspid valve regurgitation. Pulmonic Valve Pulmonic valve not well visualized. Pericardium Normal pericardium without effusion. Aorta Normal ascending aorta dimension. IVC Inferior vena cava not visualized. CONCLUSIONS Normal LV size with a borderline low ejection fraction of 53%. Hypokinetic basal inferior wall segment with dense endocardium,, suggesting previous IA. Relative hypokinesia of the septum.Grade III/IV diastolic dysfunction (restrictive filling pattern), severely elevated filling pressures. Moderately increased left atrial volume 38 ml/m squared. Trace to mild mitral regurgitation. Trace tricuspid valve regurgitation. Estimated pulmonary artery peak systolic pressure within normal limits There is no pericardial effusion. Compared to the study from 06/26/2023, there seems to be a slight improvement in the LV ejection fraction Dr Ivis Drake MD FAC (Electronically Signed) Final Date: 01 Aug 2023 08:24 S
--- NOTE | 2023-08-01 01:31 | XRR_ITS ---
PROCEDURE INFORMATION: Exam: XR Chest Exam date and time: 08/01/2023 1:32 AM Age: 58 years old Clinical indication: Pain; Shortness of breath; Chest pressure; Prior surgery; Surgery date: 6+ months; Surgery type: Cervical fusion. Splenectomy. Patient HX: C/O chest discomfort with SOB. Wearing external heart monitor. TECHNIQUE: Imaging protocol: Radiologic exam of the chest. Views: 1 view. COMPARISON: CR (CHEST, ) 07/30/2023 11:34 PM FINDINGS: Tubes, catheters and devices: Indeterminate medical lab director appreciated over the left chest wall. Lungs: Diffusely increased lung markings/interstitial coarsening. Basilar linear/reticular infiltrates. Pleural spaces: Continued blunting of the bilateral costophrenic angles. Heart/Mediastinum: Increasing retrocardiac linear/streaky opacities. Bones/joints: Lower cervical spine hardware. Diffuse degenerative changes of the visualized osseous structure. XR/XR chest 1V portable [id number] IMPRESSION: Short interval increase in imaging demonstrates diffuse interstitial coarsening/increased lung markings, increased basilar opacities specifically of the retrocardiac region, stable pleural effusions. Constellation of findings is worrisome for volume overload, however superimposed infection cannot be ruled out. Correlate clinically.
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
[2023-08-01 01:50] LABS: Lactic Sepsis W/Reflex 1.7 mmol/L (0.5-2.2)
[2023-08-01 01:57] LABS: Estmated Average Glucose 134; Hemoglobin A1C 6.3 % (4.0-6.0)
[2023-08-01 02:00] LABS: NT Pro B Type Natriuretic Pept 1003 pg/mL (0-125)
[2023-08-01 02:11] LABS: C Reactive Protein 25.9 mg/L (0.0-4.9); Lipase 19 U/L (13-60); Magnesium 1.8 mg/dL (1.7-2.3); Phosphorus 2.5 mg/dL (2.5-4.5)
[2023-08-01 02:14] LABS: Alcohol Level < 10 mg/dL (0-10)
--- NOTE | 2023-08-01 02:30 | PC.NURSE ---
Report was called to MARICARMEN Powell in [facility]. All questions and concerns were addressed at time of report.
[2023-08-01 02:42] LABS: Troponin 5 2HR 20.31 ng/L (0-10); Troponin 5 2HR Delta -1.69 ABS# (0-10)
[2023-08-01] MEDS: morphine 4 mg/mL SDV 1 mL 2 MG IVP ×5 (03:12→18:40)
[2023-08-01] MEDS: bumetanide 0.25 mg/mL SDV 4 mL 1 MG IVP ×2 (03:14→14:55)
[2023-08-01] MEDS: pantoprazole 40 mg SDV IVP (03:14)
[2023-08-01] MEDS: cefTRIAXone 1,000 MG in sodium chloride 0.9% (plus) 50 ML 100 MG IV (03:14)
[2023-08-01] MEDS: aspirin 81 mg EC Tablet PO (03:15)
[2023-08-01] MEDS: atorvastatin 40 mg Tablet PO ×2 (03:15→20:55)
[2023-08-01 03:17] LABS: Amphetamines Screen Urine Negative (Negative); Barbiturates Screen Urine Negative (Negative); Benzodiazepines Screen Urine Negative (Negative); Cocaine Screen Urine Negative (Negative); Opiate Screen Urine Positive (Negative); PCP Screen Urine Negative (Negative); THC Screen Urine Negative (Negative)
[2023-08-01 03:18] LABS: Add Urine Microscopic? YES; Bilirubin Urine 1+ (Negative); Blood Urine 2+ (Negative); Glucose Urine UA 2+ (Normal); Ketones Urine 1+ (Negative); Leukocyte Esterase Urine Trace (Negative); Nitrate Urine Negative (Negative); Protein Urine 1+ (Negative); RBC Urine 0-4 /hpf (0-2); Specific Gravity, Urine 1.015 (1.005-1.030); Urine Appearance Hazy (CLEAR); Urine Color Yellow (Yellow); Urobilinogen Urine Neg (Negative); pH Urine 6 (5-7)
[2023-08-01 03:19] LABS: Add Urine Culture? Yes; Amorphous Sediment Urine 1+ /hpf; Bacteria Urine 2+ /hpf; Fine Granular Casts Urine 0-4 /lpf; Squamous Epithelial Cell Urine 0-4 /hpf (0-5)
--- NOTE | 2023-08-01 03:24 | ECG_ITS ---
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 Measurements Intervals [place] Rate: 86 P: 50 WV: 165 QRS: 67 QRSD: 89 T: -38 QT: 355 QTc: 426 Interpretive Statements SINUS RHYTHM POSSIBLE LEFT ATRIAL ENLARGEMENT [-0.1mV P-WAVE IN V1/V2] PROBABLE INFERIOR MYOCARDIAL INFARCTION , OF INDETERMINATE AGE [35 ms Q WAVE IN II/aVF] Compared to ECG 07/31/2023 21:31:41 Myocardial infarct finding now present T-wave abnormality no longer present Possible ischemia no longer present Electronically Signed On 08-01-2023 19:59:31 CDT by Ivis Drake M.D. [id number]
[2023-08-01 03:25] LABS: Chol HDL Ratio 3.28 mg/dL (0.0-4.40); Cholesterol 154 mg/dL (0-200); HDL Cholesterol 47 mg/dL (60-100); LDL Cholesterol Calculated 76 mg/dL (50-129); LDL HDL Ratio 1.62 RATIO (0.00-3.22); Thyroid Stimulating Hormone 0.88 uIU/mL (0.27-4.20); Triglycerides 155 mg/dL (0-150)
--- NOTE | 2023-08-01 06:03 | ECG_ITS ---
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 Measurements Intervals [place] Rate: 86 P: 42 NC: 163 QRS: 52 QRSD: 85 T: -37 QT: 359 QTc: 431 Interpretive Statements SINUS RHYTHM POSSIBLE LEFT ATRIAL ENLARGEMENT [-0.1mV P-WAVE IN V1/V2] POSSIBLE INFERIOR MYOCARDIAL INFARCTION , OF INDETERMINATE AGE [30 ms Q WAVE IN II/aVF] Compared to ECG 08/01/2023 03:24:46 No significant changes Electronically Signed On 08-01-2023 19:59:34 CDT by Ivis Drake M.D. [id number]
[2023-08-01 06:16] LABS: Glucose Point of Care 370 mg/dL (70-110)
--- NOTE | 2023-08-01 06:42 | PC.NURSE ---
Spoke with regarding patient with elevated blood glucose, 370 with am accucheck and no insulin coverage ordered. ordered low dose insulin sliding scale coverage.
[2023-08-01] MEDS: insulin lispro 100 unit/1 mL SUBCUT ×4 (07:18→20:55)
[2023-08-01] MEDS: gabapentin 300 mg Capsule 600 MG PO ×3 (07:19→20:55)
[2023-08-01] MEDS: fluoxetine 20 mg Capsule 40 MG PO (07:19)
[2023-08-01] MEDS: apixaban 5 mg Tablet PO ×2 (07:19→20:55)
[2023-08-01 08:07] LABS: Troponin 5 6HR 14.78 ng/L (0-10)
[2023-08-01 08:08] LABS: Troponin 5 6HR Delta -7.22 ng/L (0-12)
[2023-08-01 10:48] LABS: Glucose Point of Care 319 mg/dL (70-110)
--- NOTE | 2023-08-01 12:00 | XRR_ITS ---
PROCEDURE INFORMATION: Exam: XR Abdomen Exam date and time: 08/01/2023 12:11 PM Age: 58 years old Clinical indication: Abdominal pain; Generalized; Additional info: Severe abd pain TECHNIQUE: Imaging protocol: Radiologic exam of the abdomen. Views: Frontal supine view of the abdomen. 1 View. COMPARISON: CT abdomen pelvis con [id number] 06/26/2023 1:17 AM FINDINGS: Gastrointestinal tract: Nonobstructive bowel gas pattern. There is a large amount of stool throughout the colon and rectum, suggestive of constipation. Bones/joints: Unremarkable. XR/XR KUB portable [id number] IMPRESSION: Imaging findings suggestive of constipation.
--- NOTE | 2023-08-01 12:55 | CTR_ITS ---
PROCEDURE INFORMATION: Exam: CT Abdomen And Pelvis With Contrast Exam date and time: 08/01/2023 1:30 PM Age: 58 years old Clinical indication: Abdominal pain; Additional info: Ruq pain TECHNIQUE: Imaging protocol: Computed tomography of the abdomen and pelvis with contrast. Radiation optimization: All CT scans at this facility use at least one of these dose optimization techniques: automated exposure control; mA and/or kV adjustment per patient size (includes targeted exams where dose is matched to clinical indication); or iterative reconstruction. Contrast material: [id number]; Contrast volume: 100 ml; Contrast route: INTRAVENOUS (IV); COMPARISON: CT abdomen pelvis wo con [id number] 06/26/2023 1:17 AM RADIATION DOSE METRICS: Total DLP (mGy-cm): 925.98 FINDINGS: Pleural spaces: Small left-sided pleural effusion with compressive atelectasis, unchanged. Liver: Normal. No mass. Gallbladder and bile ducts: Normal. No calcified stones. No ductal dilation. Pancreas: Normal. No ductal dilation. Spleen: There has been a splenectomy. Adrenal glands: Left adrenal thickening, unchanged. Kidneys and ureters: Normal. No hydronephrosis. Stomach and bowel: Unremarkable. No obstruction. No mucosal thickening. Appendix: No evidence of appendicitis. Intraperitoneal space: Unremarkable. No free air. No significant fluid collection. Vasculature: Unremarkable. No abdominal aortic aneurysm. Lymph nodes: Unremarkable. No enlarged lymph nodes. Urinary bladder: Unremarkable as visualized. Reproductive: Unremarkable as visualized. Bones/joints: Grade 1 anterolisthesis of L4 onto L5. Soft tissues: Unremarkable. CT/CT abdomen pelvis w con* [id number] IMPRESSION: 1. No acute intra-abdominal findings. 2. No evidence of acute cholecystitis. 3. Small left-sided pleural effusion with compressive atelectasis, unchanged.
[2023-08-01] MEDS: HYDROmorphone 1 mg/mL INJ 1 mL 0.5 MG IVP ×2 (13:09→20:58)
--- NOTE | 2023-08-01 13:16 | PC.NURSE ---
At ~1200 Patient starting c/o severe gallbladder pain 10/30. Informed Dr Taylor and received orders at time to obtain KUB and tell patient she would see after. MD in to see patient. Discussed plan for abd CT and made medication changes to attempt to control abd pain. Medication give as ordered and documented. Will continue to monitor.
[2023-08-01] MEDS: iohexol 350 mg/mL 500 mL Btl (per mL) IV (13:33)
--- NOTE | 2023-08-01 14:05 | PM.MISC ---
Miscellaneous Note Note: seen this am no acute events overnight says she is doing ok however little while later started complaining of RUQ pain. went to re-eval pt at bedside RUQ tender to palpation pt requesting stronger pain medication. ordered dilaudid 0.5 mg q4h prn will check ct abdomen with contrast
--- NOTE | 2023-08-01 14:12 | PC.NURSE ---
Patient resting comfortably at this time with eye closed, even snoring respirations. No distress observed at this time. Will continue to monitor.
--- NOTE | 2023-08-01 15:09 | PC.NURSE ---
Patient was resting with eyes closed and snoring. Woke patient up to administer Bumex and gabapentin. Patient immediately c/o severe pain to RUQ. Administered morphine as ordered and documented. Patient back to sleep prior to this RN leaving room. Dr Taylor notified.
--- NOTE | 2023-08-01 15:35 | PC.NURSE ---
Dr Taylor on floor presently. Received orders to change Dilaudid to q8h and Morphine to q4h. RBVO
[2023-08-01 16:25] LABS: Glucose Point of Care 249 mg/dL (70-110)
[2023-08-01 20:26] LABS: Glucose Point of Care 186 mg/dL (70-110)
[2023-08-02] VITALS (17 sets, daily range): BP systolic 110–144; BP diastolic 54–95; PULSE 80–97; RESP 18–27; TEMP 36.8–37.1; O2SAT 91–100; BMI 34.3
[2023-08-02] MEDS: morphine 4 mg/mL SDV 1 mL 2 MG IVP ×3 (00:47→10:14)
[2023-08-02] MEDS: metoclopramide 5 mg/mL SDV 2 mL IVP (02:20)
[2023-08-02] MEDS: pantoprazole 40 mg SDV IVP (02:40)
[2023-08-02] MEDS: bumetanide 0.25 mg/mL SDV 4 mL 1 MG IVP ×2 (02:40→14:15)
[2023-08-02] MEDS: cefTRIAXone 1,000 MG in sodium chloride 0.9% (plus) 50 ML 100 MG IV (02:40)
[2023-08-02] MEDS: HYDROmorphone 1 mg/mL INJ 1 mL 0.5 MG IVP (05:13)
[2023-08-02 07:11] LABS: Glucose Point of Care 181 mg/dL (70-110)
[2023-08-02 07:56] LABS: Basophils % 0.2 %; Eosinophils # 0.1 10^3/uL (0.0-0.8); Eosinophils % 0.6 %; Lymphocytes # 0.4 10^3/uL (0.8-4.8); Lymphocytes % 4.7 %; Mean Corpuscular HGB Conc 30.3 g/dL (30-55); Mean Corpuscular Hemoglobin 29.3 pg (27-33); Mean Corpuscular Volume 96.9 fl (85-98); Mean Platelet Volume 10.4 fL (7.4-10.4); Monocytes # 0.5 10^3/uL (0.2-0.9); Monocytes % 6.4 %; Neutrophils # 7.35 10^3/uL (1.8-7.7); Neutrophils % 87.7 %; Nucleated Red Blood Cells % 0.2 %; Platelet Count 271 10^3/cmm (157-399); Red Blood Count 4.13 10^6/uL (3.85-5.65); Red Cell Distribution Width 20.1 % (12.1-15.1); White Blood Count 8.38 10^3/uL (3.29-11.43)
[2023-08-02 08:21] LABS: Anion Gap 16.5 (5-19); Blood Urea Nitrogen 22 mg/dL (6-20); Calcium 8.9 mg/dL (8.5-10.5); Carbon Dioxide 29 mmol/L (22-29); Chloride 102 mmol/L (98-107); Creatinine Clr Calc Pharmacy 111.4993; Glomerular Filtration Rate 102.7 mL/min (90-130); Glucose 196 mg/dL (65-115); Magnesium 1.4 mg/dL (1.7-2.3); Osmolality Calculated 307 mOsm/kg (285-295); Potassium 3.5 mmol/L (3.5-5.1); Sodium 144 mmol/L (136-145)
[2023-08-02] MEDS: aspirin 81 mg EC Tablet PO (09:27)
[2023-08-02] MEDS: gabapentin 300 mg Capsule 600 MG PO ×3 (09:27→21:06)
[2023-08-02] MEDS: apixaban 5 mg Tablet PO ×2 (09:27→21:06)
[2023-08-02] MEDS: fluoxetine 20 mg Capsule 40 MG PO (09:27)
--- NOTE | 2023-08-02 09:56 | PC.NURSE ---
Dr Taylor visited with patient and ordered Morphine 2mg right now (for a total of 4mg). Change her morphine from 2mg to 4mg Q4hr. Discontinue the dilaudid. order a c-diff and right upper quadrant ultrasound. orders placed.
--- NOTE | 2023-08-02 10:04 | USR_ITS ---
PROCEDURE INFORMATION: Exam: US Abdomen, Limited; Right Upper Quadrant Exam date and time: 08/02/2023 2:53 PM Age: 58 years old Clinical indication: Abdominal pain; Generalized; Additional info: Right upper quad pain, ruq ultrasound TECHNIQUE: Imaging protocol: Real time ultrasound of the abdomen with image documentation. Limited exam focused on the right upper quadrant. COMPARISON: US gall bladder [id number] 05/23/2023 6:23 AM FINDINGS: Liver: Visualized hepatic parenchyma is echogenic. The liver contour is mildly nodular. Gallbladder: No evidence of cholelithiasis. No significant wall thickening or edema to suggest cholecystitis.The mold worker reports a negative sonographic Heath's sign. Biliary ducts: The CBD is nondilated, measuring 4 mm. No sonographic evidence of intraductal stone. Pancreas: The pancreas is obscured bowel gas. Right kidney: The right kidney is normal in echotexture and measures 10.9 cm in length. No evidence of hydronephrosis. US/US abdomen limited [id number] IMPRESSION: 1. No cholelithiasis or sonographic evidence of acute cholecystitis. 2. Mild nodularity of the liver contour raising the question of early hepatic cirrhosis. Consider correlation with liver function tests.
--- NOTE | 2023-08-02 10:25 | PC.NURSE ---
Dr. Taylor ordered NS at 75ml/hr for 500ml bolus. Order entered.
[2023-08-02 11:23] LABS: Glucose Point of Care 152 mg/dL (70-110)
[2023-08-02] MEDS: sodium chloride 0.9% 500 ML 75 ML IV (11:59)
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
--- NOTE | 2023-08-02 12:25 | PC.NURSE ---
Patient sleeping, snoring, in the bed at 1226.
[2023-08-02] MEDS: magnesium sulfate premix 4 GM/100 ML PREMIX IV (12:35)
[2023-08-02] MEDS: potassium chloride ER 20 mEq Tablet 40 MEQ PO (12:36)
[2023-08-02 12:49] LABS: Alanine Aminotransferase 13 U/L (0-33); Albumin Level 3.6 g/dL (3.5-5.2); Alkaline Phosphatase 134 U/L (35-105); Aspartate Amino Transferase 13 U/L (0-32); Globulin 3.4 g/dL (1.3-4.6); Total Bilirubin 0.2 mg/dL (0.15-1.2)
[2023-08-02] MEDS: morphine 4 mg/mL SDV 1 mL IVP ×3 (14:16→21:36)
[2023-08-02 17:06] LABS: Glucose Point of Care 162 mg/dL (70-110)
[2023-08-02] MEDS: insulin lispro 100 unit/1 mL SUBCUT ×2 (17:16→21:18)
[2023-08-02 20:02] LABS: Glucose Point of Care 154 mg/dL (70-110)
--- NOTE | 2023-08-02 21:01 | PC.NURSE ---
patient states c/o 12/30 abd pain, requesting to call physician for more pain medicine, states she can not wait till 2235 when morphine is due, sent message to Dr Avery via voalte and he gave order to give morphine early
[2023-08-02] MEDS: atorvastatin 40 mg Tablet PO (21:07)
[2023-08-02] MEDS: oxyCODONE-APAP 10-325 mg Tablet 1 TAB PO (22:52)
[2023-08-03] VITALS (11 sets, daily range): BP systolic 124–164; BP diastolic 74–90; PULSE 77–84; RESP 16–22; TEMP 36.7–37.1; O2SAT 93–96
[2023-08-03] MEDS: morphine 4 mg/mL SDV 1 mL IVP ×3 (01:01→11:24)
[2023-08-03] MEDS: pantoprazole 40 mg SDV IVP (02:09)
[2023-08-03] MEDS: cefTRIAXone 1,000 MG in sodium chloride 0.9% (plus) 50 ML 100 MG IV (02:10)
[2023-08-03 03:31] LABS: Basophils % 0.3 %; Eosinophils # 0.1 10^3/uL (0.0-0.8); Eosinophils % 1.6 %; Hematocrit 38.4 % (36-47); Lymphocytes # 1.5 10^3/uL (0.8-4.8); Lymphocytes % 22.9 %; Mean Corpuscular HGB Conc 28.9 g/dL (30-55); Mean Corpuscular Hemoglobin 29.8 pg (27-33); Mean Corpuscular Volume 103.2 fl (85-98); Mean Platelet Volume 9.8 fL (7.4-10.4); Monocytes # 0.8 10^3/uL (0.2-0.9); Monocytes % 12.9 %; Neutrophils # 3.98 10^3/uL (1.8-7.7); Neutrophils % 61.7 %; Nucleated Red Blood Cells % 0.3 %; Platelet Count 231 10^3/cmm (157-399); Red Blood Count 3.72 10^6/uL (3.85-5.65); Red Cell Distribution Width 20.2 % (12.1-15.1); White Blood Count 6.45 10^3/uL (3.29-11.43)
[2023-08-03 03:46] LABS: Anion Gap 11.6 (5-19); Blood Urea Nitrogen 17 mg/dL (6-20); Calcium 8.4 mg/dL (8.5-10.5); Carbon Dioxide 27 mmol/L (22-29); Chloride 100 mmol/L (98-107); Creatinine Clr Calc Pharmacy 111.4993; Glomerular Filtration Rate 102.7 mL/min (90-130); Glucose 139 mg/dL (65-115); Osmolality Calculated 284 mOsm/kg (285-295); Potassium 3.6 mmol/L (3.5-5.1); Sodium 135 mmol/L (136-145)
[2023-08-03 06:40] LABS: Glucose Point of Care 125 mg/dL (70-110)
[2023-08-03] MEDS: aspirin 81 mg EC Tablet PO (08:40)
[2023-08-03] MEDS: gabapentin 300 mg Capsule 600 MG PO (08:40)
[2023-08-03] MEDS: fluoxetine 20 mg Capsule 40 MG PO (08:40)
[2023-08-03] MEDS: apixaban 5 mg Tablet PO (08:40)
[2023-08-03] MEDS: oxyCODONE-APAP 10-325 mg Tablet 1 TAB PO (08:47)
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
[2023-08-03] MEDS: polyethylene glycol 3350 Pkt 17 gm PO ×2 (11:24→11:33)
[2023-08-03] MEDS: bumetanide 1 mg Tablet PO (11:24)
[2023-08-03 11:52] LABS: Glucose Point of Care 142 mg/dL (70-110)
[2023-08-03] MEDS: insulin lispro 100 unit/1 mL SUBCUT (12:30)
--- NOTE | 2023-08-03 12:50 | PC.NURSE ---
Discharge Note Patient discharged to [home] via [w/c to POV] accompanied by [a friend]. Discharge instructions reviewed with patient and/or tour sales representative. Mobile pharmacy medications and/or prescriptions provided. Belongings/home medications returned.
== END 2023-08-03 12:50 | disposition home or self-care (01) | DRG 291 ==
LOC: ER 08-01 01:44 → CSU 08-01 02:29
PROVIDERS: Admitting Provider Family Medicine; Emergency Provider Emergency Medicine; PCP Family Medicine; Visit Provider Internal Medicine
DX: I11.0 Hypertensive heart disease with heart failure (principal); I50.33 Acute on chronic diastolic (congestive) heart failure; E87.6 Hypokalemia; E83.42 Hypomagnesemia; R19.7 Diarrhea, unspecified; Z79.01 Long term (current) use of anticoagulants; Z86.711 Personal history of pulmonary embolism; Z87.891 Personal history of nicotine dependence; E11.9 Type 2 diabetes mellitus without complications; J44.9 Chronic obstructive pulmonary disease, unspecified; I25.10 Atherosclerotic heart disease of native coronary artery without angina pectoris
CPT/HCPCS: 36415; 36416; 71045; 74018; 74177; 76705; 80048; 80053; 80061; 80076; 80306; 80307; 81001; 82962; 83036; 83605; 83690; 83735; 83880; 84100; 84145; 84443; 84484; 85025; 85610; 86140; 87086; 93005; 93306; 94640; 94664; 96372; 96374; 96375; 99285; C9113; G0378; J0696; J1170; J1815; J2270; J2405; J2765; J2919; J3475; J3490; J7040; Q9967

== ENCOUNTER 2023-08-11 10:10 | Emergency (ER) | payer MEDICAID, SELFPAY ==
[2023-08-11] VITALS (7 sets, daily range): BP systolic 134–156; BP diastolic 63–87; PULSE 90–110; RESP 20–22; TEMP 36.8; O2SAT 90–91; BMI 32.5
--- NOTE | 2023-08-11 10:59 | CT_ITS ---
WS: [id number] CT LUMBAR SPINE, noncontrast. HISTORY: low back pain TECHNIQUE: Contiguous 2.0 mm axial imaging are performed. Sagittal and coronal reformats are submitte d and reviewed. All CT scans at [facility] use at least one of these dose optimization techni ques: automated exposure control; mA and/or kV adjustment per patient size (includes targeted exams w here dose is matched to clinical indication); or iterative reconstruction. IV contrast: None DLP: 1088.33 mGy.cm COMPARISON: 03/28/2023 Grade 1 anterolisthesis of L4 with slight progression since 03/28/2023. Vertebral body heights are norm al. L1-2: Normal. L2-3: Very slight retrolisthesis of L2. Mild disc bulging. Shallow LEFT paracentral disc protrusion c ontacting the LEFT lateral thecal sac. Mild encroachment upon the LEFT subarticular recess and the tr aversing LEFT L3 nerve root. Mild central stenosis. L3-4: Mild diffuse annular disc bulging with ligamentum flavum and facet arthritis. Mild central and bilateral subarticular recess encroachment. L4-5: Diffuse annular disc bulging with moderate facet arthritis. Encroachment upon the subarticular recesses. Very mild central and bilateral subarticular recess encroachment. L5-S1: Normal. Reidentified is L5-S1 pseudoarthrosis. Visualized retroperitoneum is normal. CT/CT lumbar spine recon [id number] IMPRESSION: 1. Grade 1 anterolisthesis of L4 has slightly progressed since 03/28/2023. 2. L5-S1 pseudoarthrosis. 3. Facet joint arthropathy most significant at L4-5. 4. Shallow LEFT paracentral disc protrusion at L2-3 with slight encroachment u kennedy the subarticular recess. 5. Mild central and subarticular recess encroachment at L4-5.
[2023-08-11 11:24] LABS: Basophils % 0.3 %; Eosinophils # 0.1 10^3/uL (0.0-0.8); Eosinophils % 0.4 %; Lymphocytes # 1.3 10^3/uL (0.8-4.8); Lymphocytes % 10.7 %; Mean Corpuscular HGB Conc 29.8 g/dL (30-55); Mean Corpuscular Hemoglobin 29.2 pg (27-33); Mean Corpuscular Volume 98.1 fl (85-98); Mean Platelet Volume 10.2 fL (7.4-10.4); Monocytes # 0.9 10^3/uL (0.2-0.9); Monocytes % 7.4 %; Neutrophils # 9.56 10^3/uL (1.8-7.7); Neutrophils % 80.7 %; Nucleated Red Blood Cells % 0 %; Platelet Count 234 10^3/cmm (157-399); Red Blood Count 4.18 10^6/uL (3.85-5.65); Red Cell Distribution Width 19.6 % (12.1-15.1); White Blood Count 11.85 10^3/uL (3.29-11.43)
--- NOTE | 2023-08-11 11:24 | PC.NURSE ---
BLADDER SCAN 0. PT HAD URINATED WITHIN THE PAST 20 MINUTES.
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
[2023-08-11 11:43] LABS: Alanine Aminotransferase 18 U/L (0-33); Albumin Level 3.4 g/dL (3.5-5.2); Alkaline Phosphatase 128 U/L (35-105); Aspartate Amino Transferase 14 U/L (0-32); Blood Urea Nitrogen 9 mg/dL (6-20); C Reactive Protein 116.4 mg/L (0.0-4.9); Calcium 8.9 mg/dL (8.5-10.5); Carbon Dioxide 26 mmol/L (22-29); Chloride 99 mmol/L (98-107); Creatinine Clr Calc Pharmacy 108.5726; Globulin 4.1 g/dL (1.3-4.6); Glomerular Filtration Rate 102.7 mL/min (90-130); Glucose 176 mg/dL (65-115); Osmolality Calculated 285 mOsm/kg (285-295); Sodium 136 mmol/L (136-145); Total Bilirubin 0.2 mg/dL (0.15-1.2); Total Protein 7.5 g/dL (6.6-8.7)
--- NOTE | 2023-08-11 11:49 | CT_ITS ---
WS: [id number] CT ABDOMEN AND PELVIS NONCONTRAST HISTORY: Abdominal pain TECHNIQUE: Imaging performed through the abdomen and pelvis. Coronal and sagittal reformats are submi tted. All CT scans at [facility] use at least one of these dose optimization techniques: auto mated exposure control; mA and/or kV adjustment per patient size (includes targeted exams where dose is matched to clinical indication); or iterative reconstruction. DLP: 1088.33 mGy.cm COMPARISON: 08/01/2023 Significant breathing motion artifact. Lower thorax: Atelectatic and dependent changes at the lung bases. There is a very tiny LEFT pleural effusion. No change since 08/01/2023. Normal size heart. Liver: Mild hepatic steatosis. Otherwise negative without IV contrast. Gallbladder: Normal gallbladder. No pericholecystic fluid or cholelithiasis. No gallbladder wall thic kening. Pancreas: Small amount of inflammation involving the pancreatic tail as seen on the prior study. Spleen: Prior splenectomy. Postoperative changes in the splenic bed. Adrenal glands: Normal RIGHT adrenal gland. Mild thickening of the LEFT adrenal gland. Right kidney: Nonobstructing 3 mm calcification lower pole. Mild perinephric stranding. Left kidney: Mild perinephric stranding. Aorta: Mild atherosclerosis abdominal aorta with no aneurysm. No free fluid, intraperitoneal air or significant lymphadenopathy. GI tract: Stomach is moderately distended with fluid and food products. No small bowel obstruction. M inimal constipation. Prior appendectomy. Abdominal wall: Midline abdominal incision is healing. Pelvis: No free fluid. No adenopathy. Urinary bladder is normally distended. Osseous structures: L4 anterolisthesis by [address]/CT abdomen pelvis wo con [id number] IMPRESSION: 1. No acute abdominal or pelvic abnormalities. 2. Mild inflammation in the pancreatic head and this splenic bed. Favor these are all postoperative changes associated with the splenectomy which are slowly improving since 06/20/2023. 3. Minimal dependent changes at the lung bases and a very tiny LEFT pleural ef fusion. 4. No GI tract obstruction.
[2023-08-11] MEDS: ondansetron 2 mg/ML SDV 2 mL 4 MG IVP (12:13)
[2023-08-11] MEDS: morphine 4 mg/mL SDV 1 mL IVP ×2 (12:13→14:53)
[2023-08-11] MEDS: sodium chloride 0.9% 1,000 ML 999 ML IV (13:00)
[2023-08-11 13:57] LABS: Specific Gravity, Urine 1.015 (1.005-1.030); Urine Appearance Clear (CLEAR); Urine Color Yellow (Yellow); pH Urine 6 (5-7)
[2023-08-11 13:58] LABS: Bilirubin Urine Neg (Negative); Blood Urine Neg (Negative); Glucose Urine UA Norm (Normal); Ketones Urine Negative (Negative); Leukocyte Esterase Urine Trace (Negative); Nitrate Urine Negative (Negative); Protein Urine Trace (Negative); Urobilinogen Urine Norm (Negative)
[2023-08-11 13:59] LABS: Add Urine Culture? No; Bacteria Urine TRACE /hpf; RBC Urine 0-4 /hpf (0-2); WBC Urine 0-4 /hpf (0-5)
== END 2023-08-11 15:10 | disposition home or self-care (01) ==
PROVIDERS: Emergency Provider Emergency Medicine; PCP Family Medicine
DX: M54.40 Lumbago with sciatica, unspecified side (principal); N39.0 Urinary tract infection, site not specified; E86.0 Dehydration; Z87.891 Personal history of nicotine dependence
CPT/HCPCS: 51798; 74176; 80053; 81001; 85025; 86140; 96374; 96375; 96376; 99285; J2270; J2405; J7030

== ENCOUNTER 2023-08-14 19:35 | Emergency (ER) | payer MEDICAID, SELFPAY ==
[2023-08-14 19:44] VITALS: BP 122/71; PULSE 69; RESP 18; O2SAT 94
--- NOTE | 2023-08-14 20:02 | XRR_ITS ---
PROCEDURE INFORMATION: Exam: XR Chest Exam date and time: 08/14/2023 8:22 PM Age: 58 years old Clinical indication: Pain; Shortness of breath; Chest pressure; Prior surgery; Surgery date: 6+ months; Surgery type: Splenectomy; Patient HX: C/O cp with SOB TECHNIQUE: Imaging protocol: Radiologic exam of the chest. Views: 1 view. COMPARISON: CR (CHEST, ) 08/01/2023 1:32 AM FINDINGS: Lungs: Mild pulmonary vascular congestion. Patchy bilateral mid to lower lung field left greater than right atelectasis versus infiltrate. Pleural spaces: Trace bilateral pleural effusions. Heart/Mediastinum: Cardiomegaly. Bones/joints: Unremarkable. XR/XR chest 1V portable [id number] IMPRESSION: 1. Trace bilateral pleural effusions. 2. Cardiomegaly. 3. Mild pulmonary vascular congestion. 4. Patchy bilateral mid to lower lung field left greater than right atelectasis versus infiltrate.
--- NOTE | 2023-08-14 20:04 | ECG_ITS ---
[facility] Test Date: 2023-08-14 Pat Name: Le Barnhart Department: Room: Gender: Female Analytics Architect: : [id number] Requested By: Ludwin Peres Order Number: [id number] Jessica MD: Ivis Drake M.D. Measurements Intervals [place] Rate: 67 P: 43 ME: 164 QRS: 56 QRSD: 86 T: -9 QT: 374 QTc: 395 Interpretive Statements SINUS RHYTHM NONSPECIFIC T-WAVE ABNORMALITY Compared to ECG 08/01/2023 06:03:31 T-wave abnormality now present Myocardial infarct finding no longer present Electronically Signed On 08-15-2023 20:18:44 CDT by Ivis Drake M.D. [email or web address]
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
== END 2023-08-14 21:08 | disposition left against medical advice (07) ==
PROVIDERS: Emergency Provider Emergency Medicine; PCP Family Medicine
DX: R06.02 Shortness of breath (principal); Z53.29 Procedure and treatment not carried out because of patient's decision for other reasons; Z79.01 Long term (current) use of anticoagulants; E11.9 Type 2 diabetes mellitus without complications; I25.10 Atherosclerotic heart disease of native coronary artery without angina pectoris; J44.9 Chronic obstructive pulmonary disease, unspecified; I10 Essential (primary) hypertension; Z87.891 Personal history of nicotine dependence
CPT/HCPCS: 71045; 93005; 99285

== ENCOUNTER 2023-09-07 15:36 | Emergency (ER) | payer MEDICAID, SELFPAY ==
[2023-09-07] VITALS (7 sets, daily range): BP systolic 143–150; BP diastolic 81–91; PULSE 85–95; RESP 20–30; TEMP 36.9; O2SAT 94–99
--- NOTE | 2023-09-07 15:46 | ECG_ITS ---
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 Measurements Intervals [place] Rate: 96 P: 42 DC: 152 QRS: 52 QRSD: 90 T: 29 QT: 373 QTc: 471 Interpretive Statements SINUS RHYTHM POSSIBLE LEFT ATRIAL ENLARGEMENT [-0.1mV P-WAVE IN V1/V2] NONSPECIFIC T-WAVE ABNORMALITY Compared to ECG 08/14/2023 19:46:45 No significant changes Electronically Signed On 09-11-2023 13:18:27 CDT by Jonny Zimmerman M.D. [email or web address]/store/[id number] f
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
--- NOTE | 2023-09-07 18:27 | ECG_ITS ---
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 Measurements Intervals [place] Rate: 91 P: 45 MI: 156 QRS: 63 QRSD: 94 T: 13 QT: 365 QTc: 450 Interpretive Statements SINUS RHYTHM WITH OCCASIONAL VENTRICULAR PREMATURE COMPLEXES POSSIBLE LEFT ATRIAL ENLARGEMENT [-0.1mV P-WAVE IN V1/V2] PROBABLE INFERIOR MYOCARDIAL INFARCTION , OF INDETERMINATE AGE [35 ms Q WAVE IN II/aVF] Compared to ECG 09/07/2023 15:35:13 Ventricular premature complex(es) now present Myocardial infarct finding now present T-wave abnormality no longer present Electronically Signed On 09-11-2023 13:20:12 CDT by Jonny Zimmerman M.D. [email or web address]/store/[id number]
[2023-09-07 18:51] LABS: Basophils # 0.1 10^3/uL (0.0-0.1); Basophils % 0.4 %; Hematocrit 38.9 % (36-47); Lymphocytes # 2.7 10^3/uL (0.8-4.8); Lymphocytes % 19.5 %; Mean Corpuscular HGB Conc 31.9 g/dL (30-55); Mean Corpuscular Hemoglobin 29.7 pg (27-33); Mean Corpuscular Volume 93.3 fl (85-98); Mean Platelet Volume 10.3 fL (7.4-10.4); Monocytes # 1.8 10^3/uL (0.2-0.9); Monocytes % 12.5 %; Neutrophils # 9.33 10^3/uL (1.8-7.7); Neutrophils % 66.8 %; Nucleated Red Blood Cells % 0.2 %; Platelet Count 294 10^3/cmm (157-399); Red Blood Count 4.17 10^6/uL (3.85-5.65); Red Cell Distribution Width 19.6 % (12.1-15.1); White Blood Count 13.98 10^3/uL (3.29-11.43)
[2023-09-07 18:55] LABS: INR 1.15 (0.8-1.2)
--- NOTE | 2023-09-07 19:05 | CTR_ITS ---
PROCEDURE INFORMATION: Exam: CTA Chest With Contrast Exam date and time: 09/07/2023 7:48 PM Age: 58 years old Clinical indication: Screening exam; Other screening; Prior surgery; Surgery date: 6+ months; Surgery type: Spleen removed; Patient HX: HX of pe; Additional info: SOA, HX of pe, effusions, respiratory failure on 02 TECHNIQUE: Imaging protocol: Computed tomographic angiography of the chest with contrast. Exam focused on the arteries. 3D rendering (Not supervised by radiologist): MIP and/or 3D reconstructed images were created by the technologist. Radiation optimization: All CT scans at this facility use at least one of these dose optimization techniques: automated exposure control; mA and/or kV adjustment per patient size (includes targeted exams where dose is matched to clinical indication); or iterative reconstruction. Contrast material: OMNI 350; Contrast volume: 80 ml; Contrast route: INTRAVENOUS (IV); COMPARISON: CT angio chest PE protcl [id number] 06/25/2023 7:00 PM RADIATION DOSE METRICS: Total DLP (mGy-cm): 433 FINDINGS: Pulmonary arteries: No pulmonary embolus or aortic dissection. Aorta: Unremarkable. No aortic aneurysm. No aortic dissection. Lungs: Rrgp-fs-ramrakua left basilar atelectasis and/or pneumonia. Pleural spaces: Unremarkable. No pneumothorax. No pleural effusion. Heart: Unremarkable. No cardiomegaly. No pericardial effusion. Coronary arteries: 2 cm endovascular stent in the proximal LAD. Severe calcified coronary artery disease. Lymph nodes: Unremarkable. No enlarged lymph nodes. Gallbladder and bile ducts: Contracted gallbladder. Spleen: Stable splenectomy. Adrenal glands: Left adrenal hyperplasia. Bones/joints: Postoperative metallic fixation of the cervical spine with or without metallic artifact. Soft tissues: Stable right mastectomy. Other findings: Examination is limited secondary to motion artifact. CT/CT angio chest PE protcl [id number] IMPRESSION: 1. Stable splenectomy. 2. Stable right mastectomy. 3. 2 cm endovascular stent in the proximal LAD. 4. Severe calcified coronary artery disease. 5. Qony-aw-sgwysfih left basilar atelectasis and/or pneumonia. 6. No pulmonary embolus or aortic dissection.
[2023-09-07 19:06] LABS: Add Urine Microscopic? NO; Charge for UA Resulting for Rev
[2023-09-07] MEDS: HYDROcodone-acetaminophen 7.5-325 mg Tablet 1 TAB PO (19:08)
[2023-09-07 19:12] LABS: Bilirubin Urine Neg (Negative); Blood Urine Neg (Negative); Glucose Urine UA Norm (Normal); Ketones Urine Negative (Negative); Leukocyte Esterase Urine Negative (Negative); Nitrate Urine Negative (Negative); Protein Urine Neg (Negative); Specific Gravity, Urine 1.015 (1.005-1.030); Urine Appearance Clear (CLEAR); Urine Color Yellow (Yellow); Urobilinogen Urine Norm (Negative); pH Urine 5 (5-7)
[2023-09-07 19:13] LABS: Troponin(5th) Baseline 20 ng/L (0-10)
[2023-09-07 19:22] LABS: Alanine Aminotransferase 24 U/L (0-33); Albumin Level 4.2 g/dL (3.5-5.2); Alkaline Phosphatase 127 U/L (35-105); Aspartate Amino Transferase 15 U/L (0-32); Blood Urea Nitrogen 18 mg/dL (6-20); Calcium 9.6 mg/dL (8.5-10.5); Carbon Dioxide 24 mmol/L (22-29); Chloride 107 mmol/L (98-107); Creatinine Clr Calc Pharmacy 132.3944; Globulin 3.4 g/dL (1.3-4.6); Glomerular Filtration Rate 126.7 mL/min (90-130); Glucose 211 mg/dL (65-115); NT Pro B Type Natriuretic Pept 873 pg/mL (0-125); Osmolality Calculated 304 mOsm/kg (285-295); Sodium 143 mmol/L (136-145); Total Bilirubin 0.2 mg/dL (0.15-1.2); Total Protein 7.6 g/dL (6.6-8.7)
[2023-09-07 19:23] LABS: Anion Gap 15.8 (5-19); Potassium 3.8 mmol/L (3.5-5.1)
[2023-09-07] MEDS: iohexol 350 mg/mL 500 mL Btl (per mL) IV (20:00)
--- NOTE | 2023-09-07 20:27 | ECG_ITS ---
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 Measurements Intervals [place] Rate: 87 P: 6 AR: 141 QRS: 71 QRSD: 93 T: 2 QT: 370 QTc: 447 Interpretive Statements SINUS RHYTHM WITH OCCASIONAL VENTRICULAR PREMATURE COMPLEXES POSSIBLE INFERIOR MYOCARDIAL INFARCTION , OF INDETERMINATE AGE [30 ms Q WAVE IN II/aVF] Compared to ECG 09/07/2023 18:37:31 No significant changes Electronically Signed On 09-11-2023 13:46:57 CDT by Jonny Zimmerman M.D. [email or web address] state [email or web address].[employer]/store/OM/[id number]
[2023-09-07 20:33] LABS: Troponin 5 2HR 19.46 ng/L (0-10)
[2023-09-07 20:34] LABS: Troponin 5 2HR Delta -0.54 ABS# (0-10)
== END 2023-09-07 21:59 | disposition home or self-care (01) ==
PROVIDERS: Emergency Provider Physician Assistant; PCP Family Medicine
DX: R07.89 Other chest pain (principal); J98.11 Atelectasis; Z79.01 Long term (current) use of anticoagulants; Z87.891 Personal history of nicotine dependence; E11.9 Type 2 diabetes mellitus without complications; I25.10 Atherosclerotic heart disease of native coronary artery without angina pectoris; J44.9 Chronic obstructive pulmonary disease, unspecified; I10 Essential (primary) hypertension
CPT/HCPCS: 71275; 80053; 81003; 83880; 84484; 85025; 85610; 85730; 93005; 99285; Q9967

== ENCOUNTER 2023-09-08 23:06 | Emergency (ER) | payer MEDICAID, SELFPAY ==
[2023-09-08 23:22] VITALS: BP 130/84; PULSE 87; RESP 16; TEMP 36.7; O2SAT 96; BMI 33.7
--- NOTE | 2023-09-09 00:53 | USR_ITS ---
PROCEDURE INFORMATION: Exam: US Duplex Right Lower Extremity Veins, Limited Exam date and time: 09/09/2023 1:13 AM Age: 58 years old Clinical indication: Pain; Leg, upper and leg, lower; Right; Additional info: Calf pain, swelling HX pe, subtherapeutic inr TECHNIQUE: Imaging protocol: Real-time duplex ultrasound of the right extremity with 2-D mariscal scale, color Doppler flow and spectral waveform analysis including responses to compression and other maneuvers (when performed) with image documentation. Limited exam was focused on the right lower extremity veins. COMPARISON: [place] [id number] 06/25/2023 9:10 PM FINDINGS: Right deep veins: Unremarkable. The common femoral, femoral, proximal profunda femoral and popliteal veins are patent without thrombus. Normal Doppler waveforms. Normal compressibility and/or augmentation response. Patency of the posterior tibial and peroneal veins in the calf. Superficial veins: Greater saphenous vein at the saphenofemoral junction is patent without thrombus. Soft tissues: Unremarkable. US/[place] [id number] IMPRESSION: No evidence of right lower extremity deep vein thrombosis.
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
[2023-09-09 01:08] VITALS: RESP 18; O2SAT 96
[2023-09-09] MEDS: HYDROmorphone 1 mg/mL INJ 1 mL IM ×2 (01:08→02:34)
[2023-09-09 01:19] VITALS: BP 142/80; PULSE 80; O2SAT 94
[2023-09-09 02:38] VITALS: BP 152/72; PULSE 82; O2SAT 92
== END 2023-09-09 02:42 | disposition home or self-care (01) ==
PROVIDERS: Emergency Provider Emergency Medicine; PCP Family Medicine
DX: M79.604 Pain in right leg (principal); Z79.01 Long term (current) use of anticoagulants; Z87.891 Personal history of nicotine dependence; E11.9 Type 2 diabetes mellitus without complications; I25.10 Atherosclerotic heart disease of native coronary artery without angina pectoris; J44.9 Chronic obstructive pulmonary disease, unspecified; I10 Essential (primary) hypertension; Z86.711 Personal history of pulmonary embolism
CPT/HCPCS: 93971; 96372; 99284; J1170

== ENCOUNTER 2023-09-10 20:33 | Emergency (ER) | payer MEDICAID, SELFPAY ==
--- NOTE | 2023-09-10 20:35 | XRR_ITS ---
PROCEDURE INFORMATION: Exam: XR Chest Exam date and time: 09/10/2023 8:57 PM Age: 58 years old Clinical indication: Chest wall pain; Additional info: Chest pain and throwing up blood x 3 hrs TECHNIQUE: Imaging protocol: Radiologic exam of the chest. Views: 1 view. COMPARISON: CT angio chest PE protcl [id number] 09/07/2023 7:48 PM FINDINGS: Lungs: Mild bibasilar chronic streaky opacities/scarring, left greater than right and unchanged at least since 07/30/2023. No new focal opacity. Pleural spaces: Unremarkable. No pleural effusion. No pneumothorax. Heart/Mediastinum: Unremarkable. No cardiomegaly. Bones/joints: Cervical fusion hardware is noted. XR/XR chest 1V portable [id number] IMPRESSION: No acute plain radiographic cardiopulmonary abnormality or new airspace opacity. Mild chronic left greater than right basilar streak atelectasis/scar
[2023-09-10 20:47] VITALS: BP 144/90; PULSE 99; RESP 22; TEMP 36.7; O2SAT 96
--- NOTE | 2023-09-10 20:47 | ECG_ITS ---
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 Measurements Intervals [place] Rate: 104 P: 47 TX: 142 QRS: 72 QRSD: 87 T: 12 QT: 331 QTc: 436 Interpretive Statements SINUS TACHYCARDIA POSSIBLE LEFT ATRIAL ENLARGEMENT [-0.1mV P-WAVE IN V1/V2] NONSPECIFIC ST & T-WAVE ABNORMALITY ABNORMAL RHYTHM ECG Compared to ECG 09/07/2023 20:32:01 T-wave abnormality now present Sinus rhythm no longer present Ventricular premature complex(es) no longer present Myocardial infarct finding no longer present Electronically Signed On 09-11-2023 13:40:23 CDT by Jonny Zimmerman M.D. [id number]
[2023-09-10 22:25] VITALS: BP 120/77; PULSE 96; RESP 32; O2SAT 96
[2023-09-10 22:44] LABS: Basophils # 0.1 10^3/uL (0.0-0.1); Basophils % 0.6 %; Eosinophils # 0.1 10^3/uL (0.0-0.8); Eosinophils % 1.2 %; Hematocrit 39.7 % (36-47); Lymphocytes # 2.5 10^3/uL (0.8-4.8); Lymphocytes % 23.3 %; Mean Corpuscular HGB Conc 31.7 g/dL (30-55); Mean Corpuscular Hemoglobin 29.7 pg (27-33); Mean Corpuscular Volume 93.6 fl (85-98); Mean Platelet Volume 10.1 fL (7.4-10.4); Monocytes # 1.2 10^3/uL (0.2-0.9); Monocytes % 11.3 %; Neutrophils # 6.82 10^3/uL (1.8-7.7); Nucleated Red Blood Cells % 0 %; Platelet Count 297 10^3/cmm (157-399); Red Blood Count 4.24 10^6/uL (3.85-5.65); Red Cell Distribution Width 20.1 % (12.1-15.1); White Blood Count 10.84 10^3/uL (3.29-11.43)
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
[2023-09-10 22:55] LABS: Troponin(5th) Baseline 21 ng/L (0-10)
[2023-09-10 22:56] LABS: Alanine Aminotransferase 18 U/L (0-33); Alkaline Phosphatase 138 U/L (35-105); Anion Gap 15.9 (5-19); Aspartate Amino Transferase 13 U/L (0-32); Blood Urea Nitrogen 24 mg/dL (6-20); Calcium 9.8 mg/dL (8.5-10.5); Carbon Dioxide 25 mmol/L (22-29); Chloride 104 mmol/L (98-107); Creatinine Clr Calc Pharmacy 94.8186; Globulin 3.1 g/dL (1.3-4.6); Glomerular Filtration Rate 85.9 mL/min (90-130); Glucose 101 mg/dL (65-115); Osmolality Calculated 296 mOsm/kg (285-295); Potassium 3.9 mmol/L (3.5-5.1); Sodium 141 mmol/L (136-145); Total Bilirubin 0.2 mg/dL (0.15-1.2); Total Protein 7.1 g/dL (6.6-8.7)
[2023-09-10 23:02] VITALS: BP 150/104; PULSE 87; RESP 18; O2SAT 97
== END 2023-09-10 23:03 | disposition left against medical advice (07) ==
PROVIDERS: Emergency Medicine; Emergency Provider Emergency Medicine; PCP Family Medicine
DX: R07.89 Other chest pain (principal); Z76.5 Malingerer [conscious simulation]; Z53.29 Procedure and treatment not carried out because of patient's decision for other reasons; Z79.01 Long term (current) use of anticoagulants; R00.0 Tachycardia, unspecified; Z87.891 Personal history of nicotine dependence; E11.9 Type 2 diabetes mellitus without complications; I25.10 Atherosclerotic heart disease of native coronary artery without angina pectoris; J44.9 Chronic obstructive pulmonary disease, unspecified; I10 Essential (primary) hypertension
CPT/HCPCS: 71045; 80053; 84484; 85025; 93005; 99285

== ENCOUNTER → 2023-10-09 08:45 | Outpatient (BNVA) | payer MEDICAID, SELFPAY | PROVIDERS: PCP Family Medicine; Visit Provider Podiatrist Foot & Ankle Surgery | DX: Q82.8 Other specified congenital malformations of skin | CPT/HCPCS: 99213 ==

== ENCOUNTER 2023-10-10 22:11 | Emergency (ER) | payer MEDICAID, SELFPAY ==
[2023-10-10 22:17] VITALS: BP 153/87; PULSE 53; RESP 17; TEMP 37.2; O2SAT 95; BMI 32.9
--- NOTE | 2023-10-10 22:28 | ECG_ITS ---
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 Measurements Intervals [place] Rate: 54 P: 48 MA: 179 QRS: 60 QRSD: 96 T: -30 QT: 416 QTc: 396 Interpretive Statements SINUS BRADYCARDIA POSSIBLE INFERIOR MYOCARDIAL INFARCTION , OF INDETERMINATE AGE [30 ms Q WAVE IN II/aVF] Diffuse T wave changes Compared to ECG 09/10/2023 20:47:54 Myocardial infarct finding now present Sinus tachycardia no longer present Electronically Signed On 10-11-2023 7:09:39 CDT by Jonny Zimmerman M.D. [id number] f
--- NOTE | 2023-10-10 22:30 | CTR_ITS ---
PROCEDURE INFORMATION: Exam: CT Head Without Contrast Exam date and time: 10/10/2023 10:38 PM Age: 58 years old Clinical indication: Stroke-like symptoms; Speech disturbance; Lt upper extremity and lt lower extremity weakness; Additional info: C/O intermittent slurred speech of left sided weakness that started yesterday evening. TECHNIQUE: Imaging protocol: Computed tomography of the head without contrast. Radiation optimization: All CT scans at this facility use at least one of these dose optimization techniques: automated exposure control; mA and/or kV adjustment per patient size (includes targeted exams where dose is matched to clinical indication); or iterative reconstruction. Other technique: STROKE PROTOCOL was implemented. COMPARISON: CT head wo con* [id number] 06/26/2023 1:11 AM RADIATION DOSE METRICS: Total DLP (mGy-cm): 1066.98 FINDINGS: Brain: There is volume loss. There is white matter lucency most consistent with chronic microvascular disease. There are old basal ganglia lacunar infarcts. No acute infarct is identified. There is no hemorrhage or extra-axial collection. There is no mass. Cerebral ventricles: No ventriculomegaly. Paranasal sinuses: Visualized sinuses are unremarkable. No fluid levels. Mastoid air cells: Visualized mastoid air cells are well aerated. Bones: Unremarkable. No acute fracture. Soft tissues: Unremarkable. CT/CT head thrombolytic [id number] IMPRESSION: 1. 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 2. No acute intracranial lesion or injury. No change from prior scan. ASSESSMENT: ASPECTS ([place] Stroke Program Early CT Score) is 10.
--- NOTE | 2023-10-10 22:30 | XRR_ITS ---
PROCEDURE INFORMATION: Exam: XR Chest Exam date and time: 10/10/2023 10:35 PM Age: 58 years old Clinical indication: Other: Possible CVA; Prior surgery; Surgery date: 6+ months; Surgery type: Splenectomy; Additional info: Slurred speech TECHNIQUE: Imaging protocol: Radiologic exam of the chest. Views: 1 view. COMPARISON: CR (CHEST, ) 09/10/2023 8:57 PM FINDINGS: Lungs: Unremarkable. No consolidation. Pleural spaces: Unremarkable. No pleural effusion. No pneumothorax. Heart/Mediastinum: Unremarkable. No cardiomegaly. Bones/joints: There are postoperative changes of the cervical spine. No fracture. XR/XR chest 1V portable [id number] IMPRESSION: No acute findings
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
[2023-10-10 22:58] VITALS: RESP 25; O2SAT 93
[2023-10-10 23:01] LABS: Basophils # 0.1 10^3/uL (0.0-0.1); Basophils % 0.5 %; Eosinophils # 0.2 10^3/uL (0.0-0.8); Eosinophils % 1.8 %; Hematocrit 44.2 % (36-47); Lymphocytes # 2.1 10^3/uL (0.8-4.8); Lymphocytes % 22.2 %; Mean Corpuscular HGB Conc 31.4 g/dL (30-55); Mean Corpuscular Hemoglobin 29.9 pg (27-33); Mean Corpuscular Volume 95.1 fl (85-98); Monocytes % 10.3 %; Neutrophils % 64.6 %; Nucleated Red Blood Cells % 0.2 %; Platelet Count 267 10^3/cmm (157-399); Red Blood Count 4.65 10^6/uL (3.85-5.65); Red Cell Distribution Width 19.6 % (12.1-15.1); White Blood Count 9.45 10^3/uL (3.29-11.43)
[2023-10-10 23:15] LABS: Add Urine Microscopic? NO; Charge for UA Resulting for Rev
[2023-10-10 23:17] LABS: INR 1.14 (0.8-1.2)
[2023-10-10 23:18] LABS: Partial Thromboplastin Time 24.5 SECONDS (23.9-36.7)
[2023-10-10 23:19] LABS: Bilirubin Urine Neg (Negative); Blood Urine Neg (Negative); Glucose Urine UA Norm (Normal); Ketones Urine Negative (Negative); Leukocyte Esterase Urine Negative (Negative); Nitrate Urine Negative (Negative); Protein Urine Neg (Negative); Urine Appearance Clear (CLEAR); Urine Color Yellow (Yellow); Urobilinogen Urine Neg (Negative); pH Urine 6 (5-7)
[2023-10-10 23:28] LABS: Amphetamines Screen Urine Negative (Negative); Barbiturates Screen Urine Negative (Negative); Benzodiazepines Screen Urine Negative (Negative); Cocaine Screen Urine Negative (Negative); Opiate Screen Urine Positive (Negative); PCP Screen Urine Negative (Negative); THC Screen Urine Negative (Negative)
[2023-10-10 23:30] LABS: Alanine Aminotransferase 20 U/L (0-33); Albumin Level 3.6 g/dL (3.5-5.2); Alkaline Phosphatase 156 U/L (35-105); Blood Urea Nitrogen 12 mg/dL (6-20); C Reactive Protein 28.3 mg/L (0.0-4.9); Calcium 9.7 mg/dL (8.5-10.5); Carbon Dioxide 26 mmol/L (22-29); Chloride 100 mmol/L (98-107); Creatinine Clr Calc Pharmacy 109.1579; Globulin 3.8 g/dL (1.3-4.6); Glomerular Filtration Rate 102.7 mL/min (90-130); Glucose 104 mg/dL (65-115); Magnesium 1.6 mg/dL (1.7-2.3); Osmolality Calculated 286 mOsm/kg (285-295); Sodium 138 mmol/L (136-145); Thyroid Stimulating Hormone 1.43 uIU/mL (0.27-4.20); Total Bilirubin 0.2 mg/dL (0.15-1.2); Total Protein 7.4 g/dL (6.6-8.7)
[2023-10-10 23:38] LABS: Alcohol Level < 10 mg/dL (0-10); Anion Gap 15.2 (5-19); Aspartate Amino Transferase 16 U/L (0-32); Potassium 3.2 mmol/L (3.5-5.1)
[2023-10-11] MEDS: potassium chloride ER 20 mEq Tablet 40 MEQ PO (00:03)
[2023-10-11] MEDS: magnesium oxide 400 mg tablet PO (00:03)
[2023-10-11 00:07] VITALS: BP 153/87; PULSE 53; RESP 25; TEMP 37.2; O2SAT 93
== END 2023-10-11 00:09 | disposition home or self-care (01) ==
PROVIDERS: Emergency Provider Emergency Medicine; PCP Family Medicine
DX: E87.6 Hypokalemia (principal); E83.42 Hypomagnesemia; Z76.5 Malingerer [conscious simulation]; R00.1 Bradycardia, unspecified; Z79.01 Long term (current) use of anticoagulants; Z87.891 Personal history of nicotine dependence; E11.9 Type 2 diabetes mellitus without complications; I25.10 Atherosclerotic heart disease of native coronary artery without angina pectoris; J44.9 Chronic obstructive pulmonary disease, unspecified; I10 Essential (primary) hypertension
CPT/HCPCS: 70450; 71045; 80053; 80306; 80307; 81003; 83735; 84443; 85025; 85610; 85730; 86140; 93005; 99285

== ENCOUNTER → 2023-10-16 10:05 | Outpatient (BNVA) | payer MEDICAID, SELFPAY | PROVIDERS: PCP Family Medicine; Visit Provider Nurse Practitioner Family | DX: R55 Syncope and collapse (principal); Z09 Encounter for follow-up examination after completed treatment for conditions other than malignant neoplasm | CPT/HCPCS: 99214 ==

== ENCOUNTER → 2023-10-23 12:28 | Outpatient (BNVA) | payer MEDICAID, SELFPAY | PROVIDERS: PCP Family Medicine; Visit Provider Podiatrist Foot & Ankle Surgery | DX: B07.0 Plantar wart | CPT/HCPCS: 99213 ==

== ENCOUNTER 2023-11-02 14:34 | Outpatient (CLI) | payer MEDICAID, SELFPAY ==
--- NOTE | 2023-11-02 14:37 | MR_ITS ---
WS: [id number] MRI LEFT SHOULDER HISTORY: L SHOULDER PAIN COMPARISON: Radiograph 05/04/2023 TECHNIQUE: Multiplanar sequences of the shoulder joint are submitted. Abnormal AC joint. There is a large amount of increased T2 and fluid signal in the AC joint with tear ing of the capsule. There is fluid extending along the inferior surface of the AC joint adjacent to t he clavicle and the acromion. Fluid like signal through the central portion of the joint. Mild subacr omial impingement. Mild widening of the AC joint to 10 mm. No os acromion. Biceps tendon appears to b e in the bicipital groove. There is a small amount of fluid adjacent to the tendon. Mild supraspinatus tendinopathy just distal to the subacromial impingement. No full-thickness tear. S ubscapularis and the infraspinatus tendons are intact. There is edema within the supraspinatus muscle extending to the tendon. Edema extends along the superficial portion of the tendon to the subdeltoid region. Edema extends along the surface of the subscapularis muscle. There is edema within the super ficial supraspinatus muscle. No muscle atrophy. No labral tear. MR/MR shoulder LT wo con* [id number] IMPRESSION: 1. AC joint injury. Probable type II AC joint injury. There is widening of the AC joint and fluid and disruption of the capsule. 2. Moderate amount of soft tissue edema extending from the AC joint injury int o the supraspinatus muscle and along the tendon and subdeltoid bursa. This is a ll likely posttraumatic injury with muscle and soft tissue contusion. Edema ext ends along the superficial subscapularis muscle also. 3. No tendon tear. 4. No fracture. 5. Mild supraspinatus tendinopathy.
== END 2023-11-02 14:35 | disposition home or self-care (01) ==
LOC: RAD 14:34
PROVIDERS: PCP Family Medicine; Visit Provider Family Medicine
DX: S43.52XA Sprain of left acromioclavicular joint, initial encounter (principal); R22.32 Localized swelling, mass and lump, left upper limb
CPT/HCPCS: 73221

== ENCOUNTER → 2023-11-06 10:07 | Outpatient (BNVA) | payer MEDICAID, SELFPAY | PROVIDERS: PCP Family Medicine; Visit Provider Podiatrist Foot & Ankle Surgery | DX: B07.0 Plantar wart (principal); E11.69 Type 2 diabetes mellitus with other specified complication | CPT/HCPCS: 99213 ==

== ENCOUNTER 2023-11-30 18:16 | Emergency (ER) | payer MEDICAID, SELFPAY ==
[2023-11-30 18:18] VITALS: BP 161/95; PULSE 89; TEMP 36.5; O2SAT 98; BMI 32.4
--- NOTE | 2023-11-30 18:48 | USCV_ITS ---
Barnhart, Le Age: 58 Gender: F : 1965 Exam Date: 11/30/2023 20:26 Ordering Phys: Kyler Nieto Technologist: CHRISTA Exam Location: [facility] [place] Indication: Left foot pain. No history of DVT per patient. HISTORY: Left foot pain. No history of DVT per patient. PROCEDURES: Venous duplex imaging was performed in only the left lower extremity. The following venous structures were evaluated: common femoral vein, profunda vein, proximal portion of the greater saphenous vein, superficial femoral vein, and the popliteal vein. In addition, the posterior tibial and peroneal veins were evaluated. Serial compression, augmentation maneuvers, and spectral Doppler flow evaluation were performed, which were normal. On the left side, the common femoral, superficial femoral, profunda femoral, popliteal, posterior tibial, greater saphenous veins, and the peroneal veins were identified and interrogated in the standard fashion. These veins were found to be easily compressible with spontaneous blood flow. No evidence of thrombus noted. CONCLUSIONS No evidence of left lower extremity DVT. Segun Wu MD (Electronically Signed) Final Date: 01 December 2023 15:55 S
--- NOTE | 2023-11-30 18:48 | XRR_ITS ---
PROCEDURE INFORMATION: Exam: XR Left Foot Exam date and time: 11/30/2023 6:58 PM Age: 58 years old Clinical indication: Swelling, leg or foot; Additional info: Foot swelling TECHNIQUE: Imaging protocol: Radiologic exam of the left foot. Views: 3 or more views. COMPARISON: CR XR foot LT min 3V* [id number] 12/24/2021 10:09 AM FINDINGS: Bones/joints: No fracture. Soft tissues: Soft tissue swelling along the dorsal aspect of the forefoot. XR/XR foot LT min 3V* [id number] IMPRESSION: 1. Soft tissue swelling along the dorsal aspect of the forefoot. 2. No fracture.
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
[2023-11-30] MEDS: morphine 4 mg/mL SDV 1 mL IM ×2 (19:33→22:25)
[2023-11-30 22:25] VITALS: RESP 20
[2023-11-30 22:29] VITALS: BP 187/87; PULSE 86; RESP 18; O2SAT 95
== END 2023-11-30 22:33 | disposition home or self-care (01) ==
PROVIDERS: Emergency Provider Physician Assistant
DX: M79.89 Other specified soft tissue disorders (principal); Z79.01 Long term (current) use of anticoagulants; Z87.891 Personal history of nicotine dependence; E11.9 Type 2 diabetes mellitus without complications; I25.10 Atherosclerotic heart disease of native coronary artery without angina pectoris; J44.9 Chronic obstructive pulmonary disease, unspecified; I10 Essential (primary) hypertension
CPT/HCPCS: 73630; 93971; 96372; 99284; J2270

== ENCOUNTER 2023-12-06 16:11 | Emergency (ER) | payer MEDICAID, SELFPAY ==
[2023-12-06 16:14] VITALS: BP 140/69; PULSE 78; RESP 18; TEMP 36.8; O2SAT 96; BMI 34.0
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
== END 2023-12-06 16:52 | disposition home or self-care (01) ==
PROVIDERS: Emergency Provider Nurse Practitioner Family
DX: B07.0 Plantar wart (principal); Z79.01 Long term (current) use of anticoagulants; Z87.891 Personal history of nicotine dependence; E11.9 Type 2 diabetes mellitus without complications; I25.10 Atherosclerotic heart disease of native coronary artery without angina pectoris; J44.9 Chronic obstructive pulmonary disease, unspecified; I10 Essential (primary) hypertension
CPT/HCPCS: 99281

== ENCOUNTER → 2023-12-10 07:41 | Outpatient (BNVA) | payer MEDICAID, SELFPAY | PROVIDERS: PCP Family Medicine; Visit Provider Podiatrist Foot & Ankle Surgery | DX: B07.0 Plantar wart (principal); E11.9 Type 2 diabetes mellitus without complications | CPT/HCPCS: 99213 ==

== ENCOUNTER → 2023-12-14 14:18 | Outpatient (BNVA) | payer MEDICAID, SELFPAY | PROVIDERS: PCP Family Medicine; Visit Provider Specialist | DX: M19.012 Primary osteoarthritis, left shoulder (principal) | CPT/HCPCS: 73030; 99205 ==

== ENCOUNTER 2023-12-20 22:46 | Emergency (ER) | payer MEDICAID, SELFPAY ==
[2023-12-20 22:56] VITALS: BP 134/109; PULSE 71; RESP 18; TEMP 36.8; O2SAT 96; BMI 32.4
--- NOTE | 2023-12-20 22:58 | CTR_ITS ---
PROCEDURE INFORMATION: Exam: CT Head Without Contrast Exam date and time: 12/20/2023 11:05 PM Age: 58 years old Clinical indication: Stroke-like symptoms; Right upper extremity numbness/paresthesia; Additional info: Symptoms of acute stroke TECHNIQUE: Imaging protocol: Computed tomography of the head without contrast. Radiation optimization: All CT scans at this facility use at least one of these dose optimization techniques: automated exposure control; mA and/or kV adjustment per patient size (includes targeted exams where dose is matched to clinical indication); or iterative reconstruction. Other technique: STROKE PROTOCOL was implemented. COMPARISON: CT head thrombolytic [id number] 10/10/2023 10:38 PM RADIATION DOSE METRICS: Total DLP (mGy-cm): 2297.58 FINDINGS: Limitations: Study is moderately limited by patient motion. Brain: Focal hypodensity left basal ganglia region is consistent with small chronic lacunar infarct. There is also small chronic lacunar infarct in the right basal ganglia. There is moderate cortical atrophy. Low-density changes in the white matter are consistent with nonspecific small vessel chronic ischemic change. There is no intracranial mass, hemorrhage or edema. Cerebral ventricles: No ventriculomegaly. Paranasal sinuses: Visualized sinuses are unremarkable. No fluid levels. Mastoid air cells: Visualized mastoid air cells are well aerated. Bones: Unremarkable. No acute fracture. Soft tissues: Unremarkable. CT/CT head thrombolytic [id number] IMPRESSION: 1. Old lacunar disease. 2. No acute intracranial finding. ASSESSMENT: ASPECTS ([place] Stroke Program Early CT Score) is 10.
[2023-12-20 22:59] VITALS: BP 125/80; PULSE 82; O2SAT 96
--- NOTE | 2023-12-20 23:17 | ECG_ITS ---
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 Measurements Intervals [place] Rate: 67 P: 52 VT: 178 QRS: 74 QRSD: 88 T: -20 QT: 376 QTc: 399 Interpretive Statements SINUS RHYTHM POSSIBLE LEFT ATRIAL ENLARGEMENT [-0.1mV P-WAVE IN V1/V2] NONSPECIFIC T-WAVE ABNORMALITY Compared to ECG 10/10/2023 22:28:32 Sinus bradycardia no longer present Myocardial infarct finding no longer present T-wave abnormality still present Electronically Signed On 12-21-2023 18:44:47 CDT by David Escalante M.D. [email or web address]
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
[2023-12-20 23:35] LABS: Glucose Point of Care 151 mg/dL (70-110)
[2023-12-20 23:37] LABS: Basophils # 0.1 10^3/uL (0.0-0.1); Basophils % 0.6 %; Eosinophils # 0.1 10^3/uL (0.0-0.8); Eosinophils % 1.3 %; Hematocrit 42.2 % (36-47); Lymphocytes # 2.4 10^3/uL (0.8-4.8); Lymphocytes % 23.8 %; Mean Corpuscular HGB Conc 32.5 g/dL (30-55); Mean Corpuscular Hemoglobin 32.9 pg (27-33); Mean Corpuscular Volume 101.4 fl (85-98); Mean Platelet Volume 10.6 fL (7.4-10.4); Monocytes % 9.5 %; Neutrophils # 6.54 10^3/uL (1.8-7.7); Neutrophils % 64.4 %; Nucleated Red Blood Cells % 0.2 %; Platelet Count 246 10^3/cmm (157-399); Red Blood Count 4.16 10^6/uL (3.85-5.65); Red Cell Distribution Width 18.6 % (12.1-15.1); White Blood Count 10.15 10^3/uL (3.29-11.43)
[2023-12-20 23:50] LABS: INR 1.11 (0.8-1.2)
[2023-12-20] MEDS: haloperidol inj 5 mg/mL INJ 1 mL 3 MG IVP (23:53)
[2023-12-20] MEDS: valproic acid inj 500 MG in sodium chloride 0.9% 50 ML 55 MG IV (23:54)
[2023-12-20 23:59] VITALS: PULSE 69; O2SAT 97
[2023-12-20 23:59] LABS: Alanine Aminotransferase 14 U/L (0-33); Albumin Level 3.7 g/dL (3.5-5.2); Alkaline Phosphatase 154 U/L (35-105); Anion Gap 12.3 (5-19); Aspartate Amino Transferase 19 U/L (0-32); Blood Urea Nitrogen 17 mg/dL (6-20); Calcium 8.9 mg/dL (8.5-10.5); Carbon Dioxide 27 mmol/L (22-29); Chloride 103 mmol/L (98-107); Globulin 3.4 g/dL (1.3-4.6); Glomerular Filtration Rate 85.9 mL/min (90-130); Glucose 158 mg/dL (65-115); Osmolality Calculated 293 mOsm/kg (285-295); Potassium 3.3 mmol/L (3.5-5.1); Sodium 139 mmol/L (136-145); Total Bilirubin 0.3 mg/dL (0.15-1.2); Total Protein 7.1 g/dL (6.6-8.7)
[2023-12-21 00:09] LABS: Alcohol Level < 10 mg/dL (0-10)
[2023-12-21] MEDS: potassium chloride ER 20 mEq Tablet PO (00:37)
[2023-12-21 00:39] LABS: Bilirubin Urine Negative (Negative); Blood Urine Negative (Negative); Glucose Urine UA Negative (Normal); Ketones Urine Negative (Negative); Leukocyte Esterase Urine Negative (Negative); Nitrate Urine Negative (Negative); Protein Urine Negative (Negative); Specific Gravity, Urine 1.018 (1.005-1.030); Urine Appearance Clear (CLEAR); Urine Color Yellow (Yellow); Urobilinogen Urine 0.2 mg/dL (Negative); pH Urine 6.5 (5-7)
[2023-12-21 00:44] LABS: Add Urine Microscopic? YES; Bacteria Urine Trace /hpf; Hyaline Casts Urine 0-4 /lpf; RBC Urine 0-2 /hpf (0-2); Squamous Epithelial Cell Urine 0-5 /hpf (0-5); WBC Urine 0-5 /hpf (0-5)
[2023-12-21 00:47] LABS: Amphetamines Screen Urine Negative (Negative); Barbiturates Screen Urine Negative (Negative); Benzodiazepines Screen Urine Negative (Negative); Cocaine Screen Urine Negative (Negative); Opiate Screen Urine Negative (Negative); PCP Screen Urine Negative (Negative); THC Screen Urine Negative (Negative)
[2023-12-21 01:00] VITALS: BP 135/100; PULSE 72; O2SAT 99
[2023-12-21 01:23] VITALS: BP 135/100; PULSE 68; O2SAT 98
== END 2023-12-21 01:25 | disposition home or self-care (01) ==
PROVIDERS: Emergency Provider Emergency Medicine; PCP Family Medicine
DX: R51.9 Headache, unspecified (principal); R47.81 Slurred speech; Z86.73 Personal history of transient ischemic attack (TIA), and cerebral infarction without residual deficits; Z79.01 Long term (current) use of anticoagulants
CPT/HCPCS: 36415; 36416; 70450; 80053; 80306; 80307; 81001; 82962; 85025; 85610; 85730; 93005; 96374; 96375; 99285; J1630; J3490

== ENCOUNTER 2023-12-23 20:00 | Outpatient (CLI) | payer MEDICAID, SELFPAY | END 2023-12-23 20:01 | disposition home or self-care (01) | LOC: SLEEP 22:32 | PROVIDERS: PCP Family Medicine; Visit Provider Family Medicine | DX: G47.10 Hypersomnia, unspecified (principal) | CPT/HCPCS: 95810 ==

== ENCOUNTER 2023-12-31 21:22 | Emergency (ER) | payer MEDICAID, SELFPAY ==
[2023-12-31 21:25] VITALS: BP 163/72; PULSE 96; RESP 20; TEMP 36.9; O2SAT 90; BMI 32.9
--- NOTE | 2023-12-31 21:27 | XRR_ITS ---
PROCEDURE INFORMATION: Exam: XR Chest Exam date and time: 12/31/2023 9:44 PM Age: 58 years old Clinical indication: Angina; Additional info: Chest pain TECHNIQUE: Imaging protocol: Radiologic exam of the chest. Views: 1 view. COMPARISON: CR XR chest 1V portable [id number] 10/10/2023 10:35 PM FINDINGS: Lungs: Hazy opacities at the left lung base appear similar to the prior study. Pleural spaces: Unremarkable. No pleural effusion. No pneumothorax. Heart/Mediastinum: Unremarkable. No cardiomegaly. Bones/joints: Unremarkable. XR/XR chest 1V portable [id number] IMPRESSION: No evidence for acute cardiopulmonary disease.
--- NOTE | 2023-12-31 21:40 | ECG_ITS ---
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 Measurements Intervals [place] Rate: 95 P: 49 MD: 160 QRS: 68 QRSD: 86 T: 7 QT: 369 QTc: 465 Interpretive Statements SINUS RHYTHM POSSIBLE LEFT ATRIAL ENLARGEMENT [-0.1mV P-WAVE IN V1/V2] POSSIBLE INFERIOR MYOCARDIAL INFARCTION , PROBABLY OLD [30 ms Q WAVE IN II/aVF] Compared to ECG 12/20/2023 23:17:28 Myocardial infarct finding now present T-wave abnormality no longer present Electronically Signed On 01-01-2024 07:40:15 CDT by David Escalante M.D. [email or web address]
[2023-12-31 21:48] LABS: Basophils # 0.1 10^3/uL (0.0-0.1); Basophils % 0.6 %; Eosinophils # 0.1 10^3/uL (0.0-0.8); Eosinophils % 1.2 %; Hematocrit 42.2 % (36-47); Lymphocytes # 2.7 10^3/uL (0.8-4.8); Mean Corpuscular HGB Conc 31.8 g/dL (30-55); Mean Corpuscular Hemoglobin 32.5 pg (27-33); Mean Corpuscular Volume 102.4 fl (85-98); Mean Platelet Volume 9.7 fL (7.4-10.4); Monocytes # 1.2 10^3/uL (0.2-0.9); Monocytes % 12.2 %; Neutrophils # 5.53 10^3/uL (1.8-7.7); Neutrophils % 57.5 %; Nucleated Red Blood Cells % 0 %; Platelet Count 231 10^3/cmm (157-399); Red Blood Count 4.12 10^6/uL (3.85-5.65); Red Cell Distribution Width 17.9 % (12.1-15.1); White Blood Count 9.62 10^3/uL (3.29-11.43)
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
[2023-12-31 22:00] LABS: Partial Thromboplastin Time 24.7 SECONDS (23.9-36.7)
[2023-12-31 22:06] LABS: Troponin(5th) Baseline 23 ng/L (0-10)
[2023-12-31 22:08] VITALS: BP 163/72; PULSE 96; RESP 20; O2SAT 90
[2023-12-31 22:16] LABS: Alanine Aminotransferase 16 U/L (0-33); Alkaline Phosphatase 153 U/L (35-105); Anion Gap 14.2 (5-19); Aspartate Amino Transferase 19 U/L (0-32); Blood Urea Nitrogen 22 mg/dL (6-20); Carbon Dioxide 31 mmol/L (22-29); Chloride 103 mmol/L (98-107); Creatinine Clr Calc Pharmacy 81.8685; Globulin 2.8 g/dL (1.3-4.6); Glomerular Filtration Rate 73.7 mL/min (90-130); Glucose 118 mg/dL (65-115); NT Pro B Type Natriuretic Pept 413 pg/mL (0-125); Osmolality Calculated 302 mOsm/kg (285-295); Potassium 4.2 mmol/L (3.5-5.1); Sodium 144 mmol/L (136-145); Total Bilirubin 0.2 mg/dL (0.15-1.2); Total Protein 6.8 g/dL (6.6-8.7)
[2023-12-31] MEDS: morphine 4 mg/mL SDV 1 mL 2 MG IVP (23:54)
[2023-12-31] MEDS: ondansetron 2 mg/ML SDV 2 mL 4 MG IVP (23:54)
[2024-01-01 00:07] VITALS: BP 152/79; PULSE 95; RESP 18; O2SAT 91
[2024-01-01 00:17] LABS: Troponin 5 2HR 21.74 ng/L (0-10); Troponin 5 2HR Delta -1.26 ABS# (0-10)
[2024-01-01] MEDS: morphine 4 mg/mL SDV 1 mL 2 MG IVP (00:50)
[2024-01-01 01:14] VITALS: BP 135/75; PULSE 87; RESP 18; O2SAT 93
== END 2024-01-01 01:13 | disposition home or self-care (01) ==
PROVIDERS: Emergency Provider Emergency Medicine; PCP Family Medicine
DX: R07.89 Other chest pain (principal); Z79.01 Long term (current) use of anticoagulants; Z87.891 Personal history of nicotine dependence; E11.9 Type 2 diabetes mellitus without complications; I25.10 Atherosclerotic heart disease of native coronary artery without angina pectoris; J44.9 Chronic obstructive pulmonary disease, unspecified; I10 Essential (primary) hypertension; Z92.21 Personal history of antineoplastic chemotherapy
CPT/HCPCS: 36415; 71045; 80053; 83880; 84484; 85025; 85730; 93005; 96374; 96375; 96376; 99285; J2270; J2405

== ENCOUNTER 2024-01-11 17:17 | Emergency (ER) | payer MEDICAID, SELFPAY ==
[2024-01-11] VITALS (11 sets, daily range): BP systolic 116–156; BP diastolic 65–99; PULSE 82–89; RESP 18–35; TEMP 36.7; O2SAT 94–96
--- NOTE | 2024-01-11 17:19 | XRR_ITS ---
PROCEDURE INFORMATION: Exam: XR Chest Exam date and time: 01/11/2024 5:30 PM Age: 58 years old Clinical indication: Chest wall pain; Additional info: Cp TECHNIQUE: Imaging protocol: Radiologic exam of the chest. Views: 1 view. COMPARISON: CR (CHEST, ) 12/31/2023 9:44 PM FINDINGS: Lungs: Unremarkable. No consolidation. Pleural spaces: Unremarkable. No pleural effusion. No pneumothorax. Heart/Mediastinum: Unremarkable. No cardiomegaly. Bones/joints: Unremarkable. XR/XR chest 1V portable [id number] IMPRESSION: No acute findings.
--- NOTE | 2024-01-11 17:19 | ECG_ITS ---
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
[2024-01-11 17:48] LABS: Basophils # 0.1 10^3/uL (0.0-0.1); Basophils % 0.6 %; Eosinophils # 0.2 10^3/uL (0.0-0.8); Eosinophils % 1.7 %; Hematocrit 42.8 % (36-47); Mean Corpuscular Hemoglobin 32.9 pg (27-33); Mean Corpuscular Volume 102.9 fl (85-98); Mean Platelet Volume 10.4 fL (7.4-10.4); Monocytes # 0.9 10^3/uL (0.2-0.9); Monocytes % 10.3 %; Neutrophils # 5.84 10^3/uL (1.8-7.7); Nucleated Red Blood Cells % 0 %; Platelet Count 255 10^3/cmm (157-399); Red Blood Count 4.16 10^6/uL (3.85-5.65); Red Cell Distribution Width 17.3 % (12.1-15.1); White Blood Count 8.99 10^3/uL (3.29-11.43)
[2024-01-11 18:00] LABS: INR 1.54 (0.8-1.2)
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
[2024-01-11 18:11] LABS: Troponin(5th) Baseline 21 ng/L (0-10)
[2024-01-11 18:13] LABS: Alanine Aminotransferase 21 U/L (0-33); Albumin Level 3.9 g/dL (3.5-5.2); Alkaline Phosphatase 145 U/L (35-105); Aspartate Amino Transferase 21 U/L (0-32); Blood Urea Nitrogen 18 mg/dL (6-20); Calcium 9.2 mg/dL (8.5-10.5); Carbon Dioxide 27 mmol/L (22-29); Chloride 106 mmol/L (98-107); Globulin 2.9 g/dL (1.3-4.6); Glomerular Filtration Rate 85.9 mL/min (90-130); Glucose 145 mg/dL (65-115); Lipase 13 U/L (13-60); Osmolality Calculated 306 mOsm/kg (285-295); Sodium 146 mmol/L (136-145); Total Bilirubin 0.2 mg/dL (0.15-1.2); Total Protein 6.8 g/dL (6.6-8.7)
[2024-01-11 18:17] LABS: Anion Gap 17.1 (5-19); Potassium 4.1 mmol/L (3.5-5.1)
[2024-01-11] MEDS: lidocaine 2% viscous 15 ML, aluminum-mag hydrox-simethicon 30 ML, sucralfate oral liq 1 GM PO (18:46)
[2024-01-11] MEDS: HYDROmorphone 1 mg/mL INJ 1 mL 0.5 MG IVP (19:16)
--- NOTE | 2024-01-11 19:18 | ECG_ITS ---
[facility]11 Pat Name: Le Barnhart Department: Room: Gender: Female Skilled Nursing Facility Counselor: : 1965 Requested By: Jonathan Rice Order Number: [id number] Reading MD: ADRIEL SOTO Measurements Intervals [place] Rate: 92 P: 32 AK: 167 QRS: 67 QRSD: 88 T: 15 QT: 312 QTc: 386 Interpretive Statements SINUS RHYTHM NONSPECIFIC T-WAVE ABNORMALITY Compared to ECG 01/11/2024 17:20:09 No significant changes Electronically Signed On 01-12-2024 21:18:01 CDT by ADRIEL SOTO [email or web address]
--- NOTE | 2024-01-11 20:36 | PC.NURSE ---
pt requested to leave. Pt stated the medication worked and she believes it was her hernia that was causing her pain and not heart issues. RN explained her 2nd trop was not back. Pt stated she did not want to wait for results. Pt signed an ama form before ambulating to emergency room exit.
[2024-01-11 20:39] LABS: Troponin 5 2HR 21.19 ng/L (0-10); Troponin 5 2HR Delta 0.19 ABS# (0-10)
== END 2024-01-11 20:40 | disposition left against medical advice (07) ==
PROVIDERS: Emergency Medicine; Emergency Provider Emergency Medicine; PCP Family Medicine
DX: Z53.29 Procedure and treatment not carried out because of patient's decision for other reasons (principal); R07.9 Chest pain, unspecified; I25.10 Atherosclerotic heart disease of native coronary artery without angina pectoris; I10 Essential (primary) hypertension
CPT/HCPCS: 36415; 71045; 80053; 83690; 84484; 85025; 85610; 93005; 96374; 99285; J1171

== ENCOUNTER 2024-01-29 19:59 | Emergency (ER) | payer MEDICAID, SELFPAY ==
[2024-01-29 20:13] VITALS: PULSE 95; RESP 24; TEMP 36.6; O2SAT 90; BMI 34.0
--- NOTE | 2024-01-29 20:50 | XRR_ITS ---
PROCEDURE INFORMATION: Exam: XR Chest Exam date and time: 01/29/2024 9:05 PM Age: 58 years old Clinical indication: Shortness of breath; Patient HX: SOB; Dyspnea TECHNIQUE: Imaging protocol: Radiologic exam of the chest. Views: 1 view. COMPARISON: CR (CHEST, ) 01/11/2024 5:30 PM FINDINGS: Lungs: Left lower lobe atelectasis versus infiltrate. Pleural spaces: Unremarkable. No pleural effusion. No pneumothorax. Heart/Mediastinum: Cardiomegaly and pulmonary vascular congestion. Bones/joints: Unremarkable. XR/XR chest 1V portable [id number] IMPRESSION: 1. Left lower lobe atelectasis versus infiltrate. 2. Cardiomegaly and pulmonary vascular congestion.
--- NOTE | 2024-01-29 20:50 | XRR_ITS ---
PROCEDURE INFORMATION: Exam: XR Right Hip Exam date and time: 01/29/2024 9:05 PM Age: 58 years old Clinical indication: Right hip; Patient HX: RT hip pain post fall TECHNIQUE: Imaging protocol: Radiologic exam of the right hip. Views: 1 view hip with pelvis when performed. COMPARISON: CT abdomen pelvis wo con [id number] 08/11/2023 12:19 PM FINDINGS: Bones/joints: Moderate right hip osteoarthritis. Soft tissues: Unremarkable. XR/XR hip RT 2-3V wo/w pel* [id number] IMPRESSION: 1. Negative for fracture or dislocation, if concern for fracture remains clinically consider further evaluation with a CT scan. 2. Moderate right hip osteoarthritis.
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
[2024-01-29] MEDS: HYDROmorphone 1 mg/mL INJ 1 mL 0.5 MG IM (21:05)
[2024-01-29 21:49] VITALS: PULSE 88; RESP 17; O2SAT 95
[2024-01-29] MEDS: ipratropium-albuterol 3 mL Neb INHALATION (21:49)
[2024-01-29 21:55] VITALS: PULSE 89
[2024-01-29 22:32] VITALS: BP 136/84; PULSE 96; O2SAT 94
== END 2024-01-29 22:33 | disposition home or self-care (01) ==
PROVIDERS: Emergency Provider Emergency Medicine; PCP Family Medicine
DX: J44.1 Chronic obstructive pulmonary disease with (acute) exacerbation (principal); W19.XXXA Unspecified fall, initial encounter; Z79.01 Long term (current) use of anticoagulants; Z87.891 Personal history of nicotine dependence; I25.10 Atherosclerotic heart disease of native coronary artery without angina pectoris; I10 Essential (primary) hypertension
CPT/HCPCS: 71045; 73502; 94640; 96372; 99284; J1171

== ENCOUNTER 2024-02-03 15:47 | Emergency (ER) | payer MEDICAID, SELFPAY ==
[2024-02-03 15:48] VITALS: BP 115/81; PULSE 90; RESP 26; TEMP 36.9; O2SAT 94; BMI 32.9
--- NOTE | 2024-02-03 15:51 | XRR_ITS ---
PROCEDURE INFORMATION: Exam: XR Chest Exam date and time: 02/03/2024 4:22 PM Age: 58 years old Clinical indication: Cough and dyspnea; Additional info: Dyspnea/cough TECHNIQUE: Imaging protocol: Radiologic exam of the chest. Views: 1 view. COMPARISON: CR (CHEST, ) 01/29/2024 9:05 PM FINDINGS: Lungs: Ongoing central pulmonary vascular congestion. Low lung volumes with mild bibasilar opacities, [id number]-milh-right. Pleural spaces: Unremarkable. No pleural effusion. No pneumothorax. Heart/Mediastinum: Stable cardiomegaly. Bones/joints: ACDF hardware again seen. XR/XR chest 1V portable [id number] IMPRESSION: 1. Stable mild cardiomegaly with central pulmonary vascular congestion. No overt pulmonary edema. 2. Bibasilar opacities favor atelectasis. Superimposed infection possible but considered less likely.
--- NOTE | 2024-02-03 15:52 | ECG_ITS ---
[facility] 2024-[facility]03 Pat Name: Le Barnhart Department: Room: Gender: Female Institutional Commodity Analyst: : 1965 Requested By: Ernesto Barnes Order Number: [id number] Jessica MD: Ivis Drake M.D. Measurements Intervals [place] Rate: 87 P: 51 HI: 158 QRS: 82 QRSD: 97 T: 50 QT: 418 QTc: 506 Interpretive Statements SINUS RHYTHM WITH FREQUENT SUPRAVENTRICULAR PREMATURE COMPLEXES POSSIBLE LEFT ATRIAL ENLARGEMENT [-0.1mV P-WAVE IN V1/V2] NONSPECIFIC T-WAVE ABNORMALITY ABNORMAL RHYTHM ECG Compared to ECG 01/11/2024 19:18:32 No significant changes Electronically Signed On 02-06-2024 15:58:03 [employer] by Ivis Drake M.D. [email or web address]
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
[2024-02-03] MEDS: ipratropium-albuterol 3 mL Neb INHALATION (16:09)
[2024-02-03 16:13] VITALS: PULSE 88; RESP 28; O2SAT 93
[2024-02-03 16:14] LABS: ABG PCO2 41.3 mmHg (35-45); ABG PH Result 7.46 (7.35-7.45); Alveolar-Arterial Oxygen Gradi 14.3 mmHg (5-10); Arterial Blood Gas Hematocrit 39.3 % (37-47); Base Excess ABG 4.7 mmol/L (-2.0-2.0); Blood Gas Allen Test Pos; Blood Gas Operator Identificat MONRO; Blood Gas Sample Site Radial, left; Blood Gas Sample Type Arterial; Carboxyhemoglobin < 0.3 %THgb (0.4-20.1); HCO3 ABG 29.1 mmol/L (22-26); HGB O2 Sat 91.5 % (95-100); Ionized Calcium Level - ABG 1.2 mmol/L (1.1-1.4); Methemoglobin 0.6 % (0.4-1.5); Oxygen Device NC; Oxygen Saturation ABG 91.6; PO2 ABG 65.1 mmHg (80.0-100.0); PO2 FiO2 Ratio Arterial Blood 203; Potassium Level - ABG 3.4 mmol/L (3.5-5.0); Total Hemoglobin 12.8 g/dL (12-16)
[2024-02-03] MEDS: dexamethasone 10 mg/mL INJ IM (16:14)
[2024-02-03] MEDS: morphine 4 mg/mL SDV 1 mL 2 MG IM (16:14)
[2024-02-03 16:19] VITALS: PULSE 88
[2024-02-03 16:20] VITALS: BP 121/80; PULSE 86; RESP 28; O2SAT 98
[2024-02-03 17:03] VITALS: BP 128/66; PULSE 89; O2SAT 94
[2024-02-03 17:13] LABS: Basophils % 0.4 %; Eosinophils # 0.1 10^3/uL (0.0-0.8); Eosinophils % 1.4 %; Hematocrit 43.3 % (36-47); Lymphocytes # 2.3 10^3/uL (0.8-4.8); Mean Corpuscular HGB Conc 30.7 g/dL (30-55); Mean Corpuscular Hemoglobin 32.7 pg (27-33); Mean Corpuscular Volume 106.4 fl (85-98); Mean Platelet Volume 10.9 fL (7.4-10.4); Monocytes # 1.1 10^3/uL (0.2-0.9); Monocytes % 11.6 %; Neutrophils # 5.67 10^3/uL (1.8-7.7); Neutrophils % 61.1 %; Nucleated Red Blood Cells # 0.1 /100WBC; Nucleated Red Blood Cells % 0.6 %; Platelet Count 184 10^3/cmm (157-399); Red Blood Count 4.07 10^6/uL (3.85-5.65); Red Cell Distribution Width 17.9 % (12.1-15.1); White Blood Count 9.29 10^3/uL (3.29-11.43)
[2024-02-03 17:34] LABS: Albumin Level 3.5 g/dL (3.5-5.2); Alkaline Phosphatase 146 U/L (35-105); Blood Urea Nitrogen 16 mg/dL (6-20); Calcium 8.8 mg/dL (8.5-10.5); Carbon Dioxide 26 mmol/L (22-29); Chloride 103 mmol/L (98-107); Creatinine Clr Calc Pharmacy 130.9895; Glomerular Filtration Rate 126.7 mL/min (90-130); Glucose 138 mg/dL (65-115); Osmolality Calculated 293 mOsm/kg (285-295); Sodium 140 mmol/L (136-145); Total Bilirubin 0.2 mg/dL (0.15-1.2); Total Protein 6.5 g/dL (6.6-8.7)
[2024-02-03 17:36] LABS: Alanine Aminotransferase 25 U/L (0-33); Aspartate Amino Transferase 24 U/L (0-32)
[2024-02-03 18:23] VITALS: BP 125/89; PULSE 84; O2SAT 94
== END 2024-02-03 18:24 | disposition home or self-care (01) ==
PROVIDERS: Emergency Provider Family Medicine; PCP Family Medicine
DX: J44.1 Chronic obstructive pulmonary disease with (acute) exacerbation (principal); Z99.81 Dependence on supplemental oxygen; Z87.891 Personal history of nicotine dependence; I25.10 Atherosclerotic heart disease of native coronary artery without angina pectoris; I10 Essential (primary) hypertension
CPT/HCPCS: 36600; 71045; 80051; 80053; 82330; 82805; 85025; 93005; 94640; 96372; 99285; J1100; J2270

== ENCOUNTER 2024-02-04 22:48 | Emergency (ER) | payer MEDICAID, SELFPAY ==
--- NOTE | 2024-02-04 22:52 | ECG_ITS ---
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 Measurements Intervals [place] Rate: 86 P: 53 NC: 152 QRS: 55 QRSD: 89 T: -26 QT: 345 QTc: 415 Interpretive Statements SINUS RHYTHM PROBABLE INFERIOR MYOCARDIAL INFARCTION , OF INDETERMINATE AGE [35 ms Q WAVE IN II/aVF] nonspecific T wave change Compared to ECG 02/03/2024 16:04:50 Myocardial infarct finding now present T-wave abnormality no longer present Electronically Signed On 02-06-2024 15:58:27 HOME HEALTH NURSE by Ivis Drake M.D. [id number]
--- NOTE | 2024-02-04 22:52 | XRR_ITS ---
PROCEDURE INFORMATION: Exam: XR Chest Exam date and time: 02/04/2024 11:53 PM Age: 58 years old Clinical indication: Shortness of breath TECHNIQUE: Imaging protocol: Radiologic exam of the chest. Views: 1 view. COMPARISON: CR XR chest 1V portable [id number] 02/03/2024 4:22 PM FINDINGS: Lungs: Increased bilateral interstitial thickening. No focal consolidation. Pleural spaces: No pleural effusion. No pneumothorax. Heart/Mediastinum: Stable cardiomegaly. Bones/joints: No acute findings. XR/XR chest 1V portable [id number] IMPRESSION: Cardiomegaly with suggestion of interstitial pulmonary edema.
[2024-02-04 23:00] VITALS: BP 171/76; PULSE 84; RESP 24; TEMP 36.7; O2SAT 96; BMI 32.9
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
[2024-02-04 23:17] VITALS: PULSE 76; O2SAT 95
[2024-02-04 23:40] VITALS: PULSE 79; RESP 20; O2SAT 98
[2024-02-04] MEDS: albuterol 2.5 mg/3 mL Neb INHALATION (23:40)
[2024-02-04] MEDS: methylPREDNISolone sod succ 125 mg/2 mL INJ IVP (23:41)
[2024-02-04] MEDS: cefTRIAXone 1,000 mg SDV 1000 MG IVP (23:41)
[2024-02-04 23:47] VITALS: BP 135/88; PULSE 78; O2SAT 95
[2024-02-04 23:48] VITALS: PULSE 84
[2024-02-04] MEDS: HYDROcodone-acetaminophen 5-325 mg Tablet 1 TAB PO (23:53)
[2024-02-05 00:32] VITALS: BP 134/89; PULSE 79; O2SAT 95
[2024-02-05 00:44] LABS: Basophils # 0.1 10^3/uL (0.0-0.1); Basophils % 0.4 %; Eosinophils % 0.3 %; Hematocrit 36.8 % (36-47); Lymphocytes # 2.7 10^3/uL (0.8-4.8); Lymphocytes % 21.6 %; Mean Corpuscular HGB Conc 32.1 g/dL (30-55); Mean Corpuscular Volume 102.8 fl (85-98); Monocytes # 1.3 10^3/uL (0.2-0.9); Monocytes % 10.5 %; Neutrophils # 8.43 10^3/uL (1.8-7.7); Neutrophils % 66.6 %; Nucleated Red Blood Cells % 0.3 %; Platelet Count 184 10^3/cmm (157-399); Red Blood Count 3.58 10^6/uL (3.85-5.65); Red Cell Distribution Width 18.2 % (12.1-15.1); White Blood Count 12.67 10^3/uL (3.29-11.43)
[2024-02-05 01:03] LABS: Troponin(5th) Baseline 26 ng/L (0-10)
[2024-02-05 01:07] LABS: Alanine Aminotransferase 44 U/L (0-33); Albumin Level 3.8 g/dL (3.5-5.2); Alkaline Phosphatase 139 U/L (35-105); Anion Gap 14.5 (5-19); Aspartate Amino Transferase 42 U/L (0-32); Blood Urea Nitrogen 21 mg/dL (6-20); Calcium 8.6 mg/dL (8.5-10.5); Carbon Dioxide 26 mmol/L (22-29); Chloride 106 mmol/L (98-107); Creatinine Clr Calc Pharmacy 109.1579; Globulin 2.6 g/dL (1.3-4.6); Glomerular Filtration Rate 102.7 mL/min (90-130); Glucose 152 mg/dL (65-115); Osmolality Calculated 302 mOsm/kg (285-295); Potassium 3.5 mmol/L (3.5-5.1); Sodium 143 mmol/L (136-145); Total Bilirubin 0.2 mg/dL (0.15-1.2); Total Protein 6.4 g/dL (6.6-8.7)
[2024-02-05 01:12] LABS: NT Pro B Type Natriuretic Pept 682 pg/mL (0-125)
[2024-02-05] MEDS: FUROsemide 10 mg/mL SDV 10mL 60 MG IVP (01:24)
[2024-02-05 01:32] VITALS: BP 163/94; PULSE 86; O2SAT 96
[2024-02-05 01:44] VITALS: BP 163/94; PULSE 76; O2SAT 95
[2024-02-05 02:01] LABS: Covid PCR NEGATIVE (Negative); Influenza A NEGATIVE (Negative); Influenza B NEGATIVE (Negative); Respiratory Syncytial Virus Ce NEGATIVE (Negative)
== END 2024-02-05 01:48 | disposition home or self-care (01) ==
PROVIDERS: Emergency Provider Emergency Medicine; PCP Family Medicine
DX: J02.9 Acute pharyngitis, unspecified (principal); Z87.891 Personal history of nicotine dependence; J96.11 Chronic respiratory failure with hypoxia; I25.10 Atherosclerotic heart disease of native coronary artery without angina pectoris; I10 Essential (primary) hypertension
CPT/HCPCS: 0241U; 36415; 71045; 80053; 83880; 84484; 85025; 87040; 93005; 94640; 96374; 96375; 99285; J0696; J1940; J2919; J7613

== ENCOUNTER 2024-02-07 18:09 | Emergency (ER) | payer MEDICAID, SELFPAY ==
[2024-02-07 18:10] VITALS: BP 141/61; PULSE 93; RESP 20; TEMP 36.7; O2SAT 91
[2024-02-07 18:45] VITALS: BP 130/73; PULSE 87; RESP 16; O2SAT 93
--- NOTE | 2024-02-07 18:47 | XRR_ITS ---
PROCEDURE INFORMATION: Exam: XR Right Knee Exam date and time: 02/07/2024 7:15 PM Age: 58 years old Clinical indication: Right; Patient HX: RT knee pain post fall TECHNIQUE: Imaging protocol: Radiologic exam of the right knee. Views: 3 views. COMPARISON: [place] [id number] 06/25/2023 9:10 PM FINDINGS: Bones/joints: Normal. Soft tissues: Normal. XR/XR knee RT 3V* [id number] IMPRESSION: No acute findings.
--- NOTE | 2024-02-07 18:47 | XRR_ITS ---
PROCEDURE INFORMATION: Exam: XR Chest Exam date and time: 02/07/2024 7:10 PM Age: 58 years old Clinical indication: Shortness of breath; Patient HX: SOB; Copd; Mid back/rt knee pain post fall TECHNIQUE: Imaging protocol: Radiologic exam of the chest. Views: 2 views. COMPARISON: CR (CHEST, ) 02/04/2024 11:53 PM FINDINGS: Lungs: Bibasilar [id number]-right atelectasis versus infiltrate. Pleural spaces: Unremarkable. No pleural effusion. No pneumothorax. Heart/Mediastinum: Cardiomegaly and pulmonary vascular congestion. Bones/joints: Unremarkable. XR/XR chest 2V* [id number] IMPRESSION: 1. Cardiomegaly and pulmonary vascular congestion. 2. Bibasilar [id number]-right atelectasis versus infiltrate.
[2024-02-07 19:00] VITALS: RESP 16; O2SAT 93
[2024-02-07] MEDS: morphine 4 mg/mL SDV 1 mL 2 MG IM (19:00)
[2024-02-07] MEDS: haloperidol inj 5 mg/mL INJ 1 mL IM (19:01)
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
[2024-02-07 19:32] VITALS: BP 130/73; PULSE 88; RESP 16; O2SAT 89
== END 2024-02-07 19:33 | disposition home or self-care (01) ==
PROVIDERS: Emergency Provider Emergency Medicine; PCP Family Medicine
DX: S80.01XA Contusion of right knee, initial encounter (principal); Z79.85 Long-term (current) use of injectable non-insulin antidiabetic drugs; Z87.891 Personal history of nicotine dependence; J96.21 Acute and chronic respiratory failure with hypoxia; I25.10 Atherosclerotic heart disease of native coronary artery without angina pectoris; I10 Essential (primary) hypertension; W19.XXXA Unspecified fall, initial encounter
CPT/HCPCS: 71046; 73562; 96372; 99284; J1630; J2270

== ENCOUNTER 2024-02-08 13:36 | Emergency (ER) | payer MEDICAID, SELFPAY ==
--- NOTE | 2024-02-08 13:50 | ECG_ITS ---
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
[2024-02-08 13:51] VITALS: BP 164/77; PULSE 88; RESP 18; TEMP 36.8; O2SAT 95; BMI 33.6
== END 2024-02-08 14:35 | disposition left against medical advice (07) ==
PROVIDERS: Emergency Provider Family Medicine; PCP Family Medicine
DX: Z53.21 Procedure and treatment not carried out due to patient leaving prior to being seen by health care provider (principal)
CPT/HCPCS: 93005

== ENCOUNTER 2024-02-13 06:42 | Emergency (ER) | payer MEDICAID, SELFPAY ==
[2024-02-13] VITALS (15 sets, daily range): BP systolic 128–153; BP diastolic 51–88; PULSE 85–99; RESP 20–33; TEMP 37.4; O2SAT 89–95; BMI 45.1
--- NOTE | 2024-02-13 06:49 | ECG_ITS ---
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: : 1965 Requested By: Ernesto Barnes Order Number: [id number] Reading MD: ADRIEL SOTO Measurements Intervals [place] Rate: 102 P: 66 SD: 173 QRS: 92 QRSD: 88 T: 1 QT: 339 QTc: 442 Interpretive Statements SINUS TACHYCARDIA POSSIBLE LEFT ATRIAL ENLARGEMENT [-0.1mV P-WAVE IN V1/V2] BORDERLINE RIGHT AXIS DEVIATION [QRS AXIS > 90] NONSPECIFIC ST & T-WAVE ABNORMALITY ABNORMAL RHYTHM ECG Compared to ECG 02/08/2024 13:48:13 Sinus rhythm no longer present T-wave abnormality still present Electronically Signed On 02-15-2024 19:28:06 WOVEN WOOD SHADE ASSEMBLER by ADRIEL SOTO [id number]
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
--- NOTE | 2024-02-13 07:07 | XRR_ITS ---
PROCEDURE INFORMATION: Exam: XR Chest Exam date and time: 02/13/2024 7:11 AM Age: 58 years old Clinical indication: Cough and dyspnea; Additional info: Dyspnea/cough TECHNIQUE: Imaging protocol: Radiologic exam of the chest. Views: 1 view. COMPARISON: CR XR chest 2V* [id number] 02/07/2024 7:10 PM FINDINGS: Lungs: Atelectasis or infiltrate in each lower lobe. Pleural spaces: Unremarkable. No pleural effusion. No pneumothorax. Heart/Mediastinum: See Vasculature finding. Vasculature: Mild cardiomegaly and uncoiling of the thoracic aorta. Bones/joints: Prior anterior cervical fusion. XR/XR chest 1V portable [id number] IMPRESSION: No significant change.
[2024-02-13] MEDS: acetaminophen 500 mg Tablet 1000 MG PO (07:17)
[2024-02-13] MEDS: dexamethasone 10 mg/mL INJ IM (07:18)
[2024-02-13] MEDS: ipratropium-albuterol 3 mL Neb INHALATION (07:27)
[2024-02-13 07:39] LABS: ABG PCO2 42.5 mmHg (35-45); ABG PH Result 7.44 (7.35-7.45); Alveolar-Arterial Oxygen Gradi 11.8 mmHg (5-10); Base Excess ABG 4.3 mmol/L (-2.0-2.0); Blood Gas Allen Test Pos; Blood Gas Operator Identificat CAK; Blood Gas Sample Site Radial, left; Blood Gas Sample Type Arterial; Carboxyhemoglobin < 0.3 %THgb (0.4-20.1); HGB O2 Sat 87.9 % (95-100); Ionized Calcium Level - ABG 1.2 mmol/L (1.1-1.4); Methemoglobin 1.2 % (0.4-1.5); Oxygen Device NC; Oxygen Saturation ABG 88.9; PO2 FiO2 Ratio Arterial Blood 203; Potassium Level - ABG 3.6 mmol/L (3.5-5.0); Total Hemoglobin 11.7 g/dL (12-16)
[2024-02-13 07:48] LABS: Basophils % 0.4 %; Eosinophils # 0.1 10^3/uL (0.0-0.8); Eosinophils % 0.6 %; Hematocrit 39.6 % (36-47); Lymphocytes # 1.1 10^3/uL (0.8-4.8); Lymphocytes % 9.8 %; Mean Corpuscular HGB Conc 30.6 g/dL (30-55); Mean Corpuscular Hemoglobin 33.1 pg (27-33); Mean Corpuscular Volume 108.2 fl (85-98); Mean Platelet Volume 11.2 fL (7.4-10.4); Monocytes % 9.6 %; Neutrophils # 8.53 10^3/uL (1.8-7.7); Nucleated Red Blood Cells % 0.3 %; Platelet Count 136 10^3/cmm (157-399); Red Blood Count 3.66 10^6/uL (3.85-5.65); Red Cell Distribution Width 18.1 % (12.1-15.1); White Blood Count 10.78 10^3/uL (3.29-11.43)
[2024-02-13 07:58] LABS: Alanine Aminotransferase 22 U/L (0-33); Albumin Level 3.5 g/dL (3.5-5.2); Alkaline Phosphatase 138 U/L (35-105); Blood Urea Nitrogen 9 mg/dL (6-20); Calcium 8.3 mg/dL (8.5-10.5); Carbon Dioxide 26 mmol/L (22-29); Chloride 100 mmol/L (98-107); Creatinine Clr Calc Pharmacy 164.2248; Globulin 2.7 g/dL (1.3-4.6); Glomerular Filtration Rate 126.7 mL/min (90-130); Glucose 175 mg/dL (65-115); Osmolality Calculated 285 mOsm/kg (285-295); Sodium 136 mmol/L (136-145); Total Bilirubin 0.4 mg/dL (0.15-1.2); Total Protein 6.2 g/dL (6.6-8.7)
[2024-02-13 08:04] LABS: Anion Gap 14.4 (5-19); Potassium 4.4 mmol/L (3.5-5.1)
[2024-02-13 08:05] LABS: Aspartate Amino Transferase 21 U/L (0-32)
[2024-02-13 08:11] LABS: Influenza A NEGATIVE (Negative); Influenza B NEGATIVE (Negative); Respiratory Syncytial Virus Ce NEGATIVE (Negative)
[2024-02-13 08:38] LABS: Covid PCR Positive (Negative)
== END 2024-02-13 09:06 | disposition home or self-care (01) ==
PROVIDERS: Emergency Provider Family Medicine; PCP Family Medicine
DX: U07.1 COVID-19 (principal); Z11.52 Encounter for screening for COVID-19; Z87.891 Personal history of nicotine dependence; I10 Essential (primary) hypertension; I25.10 Atherosclerotic heart disease of native coronary artery without angina pectoris; J44.9 Chronic obstructive pulmonary disease, unspecified
CPT/HCPCS: 0241U; 36600; 71045; 80051; 80053; 82330; 82805; 85025; 93005; 94640; 96372; 99285; J1100

== ENCOUNTER 2024-02-14 16:40 | Emergency (ER) | payer MEDICAID, SELFPAY ==
--- NOTE | 2024-02-14 16:45 | XRR_ITS ---
PROCEDURE INFORMATION: Exam: XR Chest Exam date and time: 02/14/2024 5:39 PM Age: 58 years old Clinical indication: Shortness of breath; Additional info: SOB TECHNIQUE: Imaging protocol: Radiologic exam of the chest. Views: 1 view. COMPARISON: CR (CHEST, ) 02/13/2024 7:11 AM FINDINGS: Lungs: There are increased peripheral hazy opacities in the lung bases. Lung apices are clear. Pleural spaces: Unremarkable. No pleural effusion. No pneumothorax. Heart/Mediastinum: Allowing for rotation, the heart is grossly unchanged. Bones/joints: Chronic cervical metallic fusion. XR/XR chest 1V portable [id number] IMPRESSION: Increased peripheral haziness in both lung bases. This could be due to interstitial edema. Differential would include an artifact from overlying breast tissue
[2024-02-14 16:47] VITALS: BP 130/65; PULSE 106; RESP 21; TEMP 38.7; O2SAT 92; BMI 47.2
--- NOTE | 2024-02-14 17:02 | ECG_ITS ---
[employer] Test Date: 2024-02-14 Pat Name: Le Barnhart Department: Room: Gender: Female Tipple Operator: : 1965 Requested By: Ludwin Peres Order Number: [id number] Jessica MD: ADRIEL SOTO Measurements Intervals [place] Rate: 107 P: 46 NH: 156 QRS: 78 QRSD: 85 T: 51 QT: 317 QTc: 425 Interpretive Statements SINUS TACHYCARDIA POSSIBLE LEFT ATRIAL ENLARGEMENT [-0.1mV P-WAVE IN V1/V2] NONSPECIFIC ST & T-WAVE ABNORMALITY ABNORMAL RHYTHM ECG Compared to ECG 02/13/2024 06:49:00 No significant changes Electronically Signed On 02-15-2024 18:56:20 PRODUCE TEAM LEAD by ADRIEL SOTO [email or web address]
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
[2024-02-14 18:11] VITALS: BP 135/72; PULSE 104; O2SAT 99
== END 2024-02-14 18:13 | disposition home or self-care (01) ==
PROVIDERS: Emergency Provider Emergency Medicine; PCP Family Medicine
DX: U07.1 COVID-19 (principal); Z87.891 Personal history of nicotine dependence; I25.10 Atherosclerotic heart disease of native coronary artery without angina pectoris; J44.9 Chronic obstructive pulmonary disease, unspecified; I10 Essential (primary) hypertension
CPT/HCPCS: 71045; 93005; 99284

== ENCOUNTER 2024-02-23 14:00 | Emergency (ER) | payer MEDICAID, SELFPAY ==
--- NOTE | 2024-02-23 14:04 | XR_ITS ---
WS: [id number] XR chest 1V portable [id number] REASON FOR EXAM: cough FINDINGS: The chest appears unchanged compared to 02/13/2024. Mild tortuosity of the thoracic aorta. The heart is mildly enlarged. Calcified granulomas disease bilaterally. No acute pulmonary parenchymal or pleural abnormality is identified. There are chronic reticular inte rstitial lung opacities in both lower lung botello as seen on previous examinations. No significant abnormality of the bony thorax. XR/XR chest 1V portable [id number] IMPRESSION: Mild cardiomegaly and chronic lung findings with no definite acute abnormality.
[2024-02-23 14:09] VITALS: BP 112/67; PULSE 94; RESP 18; TEMP 36.9; O2SAT 93
--- NOTE | 2024-02-23 14:33 | ECG_ITS ---
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 Measurements Intervals [place] Rate: 97 P: 47 VA: 146 QRS: 52 QRSD: 85 T: 46 QT: 337 QTc: 429 Interpretive Statements SINUS RHYTHM LEFT ATRIAL ENLARGEMENT [-0.15mV P-WAVE IN V1/V2] POSSIBLE INFERIOR MYOCARDIAL INFARCTION , PROBABLY OLD [30 ms Q WAVE IN II/aVF] Compared to ECG 02/14/2024 16:51:14 Myocardial infarct finding now present Sinus tachycardia no longer present T-wave abnormality no longer present Electronically Signed On 02-23-2024 21:26:53 [employer] by David Escalante M.D. [id number]
[2024-02-23 14:50] VITALS: PULSE 84; RESP 24; O2SAT 96
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
--- NOTE | 2024-02-23 14:53 | PC.PHAR ---
spoke with pharmacy regarding all current meds
[2024-02-23 15:14] LABS: Covid PCR NEGATIVE (Negative); Influenza A NEGATIVE (Negative); Influenza B NEGATIVE (Negative); Respiratory Syncytial Virus Ce NEGATIVE (Negative)
[2024-02-23 15:29] VITALS: RESP 24; O2SAT 96
[2024-02-23] MEDS: morphine 4 mg/mL SDV 1 mL IVP (15:29)
[2024-02-23 15:38] LABS: Basophils % 0.1 %; Eosinophils # 0.2 10^3/uL (0.0-0.8); Eosinophils % 1.9 %; Hematocrit 43.3 % (36-47); Lymphocytes % 19.3 %; Mean Corpuscular HGB Conc 31.4 g/dL (30-55); Mean Corpuscular Hemoglobin 32.5 pg (27-33); Mean Corpuscular Volume 103.3 fl (85-98); Mean Platelet Volume 10.4 fL (7.4-10.4); Monocytes # 0.7 10^3/uL (0.2-0.9); Monocytes % 6.8 %; Neutrophils # 7.28 10^3/uL (1.8-7.7); Neutrophils % 70.6 %; Nucleated Red Blood Cells % 0.2 %; Platelet Count 170 10^3/cmm (157-399); Red Blood Count 4.19 10^6/uL (3.85-5.65); Red Cell Distribution Width 17.2 % (12.1-15.1); White Blood Count 10.31 10^3/uL (3.29-11.43)
[2024-02-23 15:46] VITALS: PULSE 89; O2SAT 94
[2024-02-23 15:57] LABS: D Dimer 0.42 ug/mLFEU (0-0.59)
[2024-02-23 15:59] LABS: Alanine Aminotransferase 20 U/L (0-33); Albumin Level 3.1 g/dL (3.5-5.2); Alkaline Phosphatase 120 U/L (35-105); Aspartate Amino Transferase 13 U/L (0-32); Blood Urea Nitrogen 28 mg/dL (6-20); Calcium 9.1 mg/dL (8.5-10.5); Carbon Dioxide 28 mmol/L (22-29); Chloride 101 mmol/L (98-107); Globulin 2.8 g/dL (1.3-4.6); Glomerular Filtration Rate 102.7 mL/min (90-130); Glucose 136 mg/dL (65-115); Osmolality Calculated 298 mOsm/kg (285-295); Sodium 140 mmol/L (136-145); Total Bilirubin 0.2 mg/dL (0.15-1.2); Total Protein 5.9 g/dL (6.6-8.7)
[2024-02-23 16:06] LABS: Procalcitonin 0.08 ng/mL (0-0.5)
[2024-02-23 16:16] LABS: Troponin(5th) Baseline 21 ng/L (0-10)
--- NOTE | 2024-02-23 16:33 | ECG_ITS ---
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 Measurements Intervals [place] Rate: 92 P: 28 [place]: 143 QRS: 65 QRSD: 87 T: 7 QT: 359 QTc: 445 Interpretive Statements SINUS RHYTHM WITH FREQUENT SUPRAVENTRICULAR PREMATURE COMPLEXES POSSIBLE INFERIOR MYOCARDIAL INFARCTION , PROBABLY OLD [30 ms Q WAVE IN II/aVF] ABNORMAL RHYTHM ECG Compared to ECG 02/23/2024 14:07:12 Atrial abnormality no longer present Myocardial infarct finding still present Electronically Signed On 02-23-2024 21:46:55 [employer] by David Escalante M.D. [id number]
[2024-02-23 16:51] VITALS: BP 121/79; PULSE 88; O2SAT 95
== END 2024-02-23 16:52 | disposition home or self-care (01) ==
PROVIDERS: Emergency Medicine; Emergency Provider Physician Assistant; PCP Family Medicine
DX: R07.89 Other chest pain (principal); Z11.52 Encounter for screening for COVID-19; Z87.891 Personal history of nicotine dependence; I10 Essential (primary) hypertension; I25.10 Atherosclerotic heart disease of native coronary artery without angina pectoris; J44.9 Chronic obstructive pulmonary disease, unspecified
CPT/HCPCS: 0241U; 36415; 71045; 80053; 84145; 84484; 85025; 85378; 93005; J2270

== ENCOUNTER 2024-03-16 14:22 | Emergency (ER) | payer MEDICAID, SELFPAY ==
[2024-03-16 14:23] VITALS: BP 134/86; PULSE 85; RESP 17; TEMP 36.7; O2SAT 96; BMI 45.6
--- NOTE | 2024-03-16 14:38 | USR_ITS ---
PROCEDURE INFORMATION: Exam: US Abdomen, Limited; Right Upper Quadrant Exam date and time: 03/16/2024 3:24 PM Age: 58 years old Clinical indication: Abdominal pain; Additional info: Ruq pain into back, HX of gallbladder issues TECHNIQUE: Imaging protocol: Real time ultrasound of the abdomen with image documentation. Limited exam focused on the right upper quadrant. COMPARISON: US abdomen limited [id number] 08/02/2023 2:53 PM FINDINGS: Liver: Normal. No masses. Right hepatic lobe measures 14.5 cm. Gallbladder: Normal. No gallstones. There is no gallbladder wall thickening. Biliary ducts: Normal. No stones. No dilation. Common bile duct measures 0.4 cm in caliber. Pancreas: Mostly obscured by bowel gas. Right kidney: Normal. No mass. No hydronephrosis. Right kidney measures 11.8 cm in length. Aorta: Mid abdominal aorta measures 1.5 cm. Inferior vena cava: Upper IVC measures 1.5 cm in caliber. US/US gall bladder [id number] IMPRESSION: No acute findings.
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
[2024-03-16 14:55] LABS: Basophils % 0.5 %; Eosinophils # 0.1 10^3/uL (0.0-0.8); Eosinophils % 0.6 %; Hematocrit 42.7 % (36-47); Lymphocytes # 2.9 10^3/uL (0.8-4.8); Lymphocytes % 32.7 %; Mean Corpuscular HGB Conc 31.4 g/dL (30-55); Mean Corpuscular Volume 105.2 fl (85-98); Mean Platelet Volume 10.6 fL (7.4-10.4); Monocytes # 1.2 10^3/uL (0.2-0.9); Monocytes % 13.8 %; Neutrophils # 4.62 10^3/uL (1.8-7.7); Neutrophils % 52.1 %; Nucleated Red Blood Cells % 0 %; Platelet Count 175 10^3/cmm (157-399); Red Blood Count 4.06 10^6/uL (3.85-5.65); Red Cell Distribution Width 17.6 % (12.1-15.1); White Blood Count 8.86 10^3/uL (3.29-11.43)
[2024-03-16] MEDS: ondansetron 2 mg/ML SDV 2 mL 4 MG IVP (15:03)
[2024-03-16] MEDS: HYDROmorphone 1 mg/mL INJ 1 mL IVP (15:03)
[2024-03-16 15:05] VITALS: BP 158/87; PULSE 86; RESP 18; O2SAT 95
[2024-03-16 15:15] LABS: Alanine Aminotransferase 19 U/L (0-33); Albumin Level 3.6 g/dL (3.5-5.2); Alkaline Phosphatase 128 U/L (35-105); Anion Gap 15.9 (5-19); Aspartate Amino Transferase 12 U/L (0-32); Blood Urea Nitrogen 20 mg/dL (6-20); Calcium 9.5 mg/dL (8.5-10.5); Carbon Dioxide 26 mmol/L (22-29); Chloride 107 mmol/L (98-107); Creatinine Clr Calc Pharmacy 92.2116; Globulin 3.2 g/dL (1.3-4.6); Glomerular Filtration Rate 64.3 mL/min (90-130); Glucose 109 mg/dL (65-115); Lipase 18 U/L (13-60); Osmolality Calculated 303 mOsm/kg (285-295); Potassium 3.9 mmol/L (3.5-5.1); Sodium 145 mmol/L (136-145); Total Bilirubin 0.2 mg/dL (0.15-1.2); Total Protein 6.8 g/dL (6.6-8.7)
[2024-03-16 16:07] LABS: Bilirubin Urine Negative (Negative); Blood Urine Negative (Negative); Glucose Urine UA Negative (Normal); Ketones Urine Negative (Negative); Leukocyte Esterase Urine Negative (Negative); Nitrate Urine Negative (Negative); Protein Urine Negative (Negative); Specific Gravity, Urine 1.022 (1.005-1.030); Urine Appearance Clear (CLEAR); Urine Color Yellow (Yellow); Urobilinogen Urine 0.2 mg/dL (Negative)
[2024-03-16 16:12] LABS: Add Urine Microscopic? YES; Bacteria Urine None Seen /hpf; Hyaline Casts Urine 0-4 /lpf; RBC Urine 0-2 /hpf (0-2); Squamous Epithelial Cell Urine 0-5 /hpf (0-5); WBC Urine 0-5 /hpf (0-5)
[2024-03-16] MEDS: HYDROmorphone 1 mg/mL INJ 1 mL 0.5 MG IVP (16:27)
--- NOTE | 2024-03-17 08:11 | DCPLANNER ---
messaged gen surg for er f/u
== END 2024-03-16 16:40 | disposition home or self-care (01) ==
PROVIDERS: Emergency Provider Physician Assistant; PCP Family Medicine
DX: K80.50 Calculus of bile duct without cholangitis or cholecystitis without obstruction (principal); Z87.891 Personal history of nicotine dependence; J44.9 Chronic obstructive pulmonary disease, unspecified; I10 Essential (primary) hypertension; I25.110 Atherosclerotic heart disease of native coronary artery with unstable angina pectoris
CPT/HCPCS: 36415; 76705; 80053; 81001; 83690; 85025; 96374; 96375; 96376; 99285; J1171; J2405

== ENCOUNTER 2024-04-30 00:45 | Emergency (ER) | payer MEDICAID, SELFPAY ==
--- NOTE | 2024-04-30 00:49 | XRR_ITS ---
PROCEDURE INFORMATION: Exam: XR Chest Exam date and time: 04/30/2024 2:23 AM Age: 58 years old Clinical indication: Chest pressure; Prior surgery; Surgery date: 6+ months; Surgery type: Cervical fusion; C/O chest pain; Additional info: Cp TECHNIQUE: Imaging protocol: Radiologic exam of the chest. Views: 1 view. COMPARISON: CR XR chest 1V portable [id number] 02/23/2024 2:25 PM FINDINGS: Lungs: Minimal bibasilar discoid atelectasis. No consolidation. Pleural spaces: Unremarkable. No pleural effusion. No pneumothorax. Heart/Mediastinum: Stable mild cardiomegaly. Bones/joints: Unremarkable. XR/XR chest 1V portable [id number] IMPRESSION: Minimal bibasilar discoid atelectasis
--- NOTE | 2024-04-30 00:49 | ECG_ITS ---
[facility] Test Date: 2024-04-30 Pat Name: Le Barnhart Department: Room: Gender: Female Drop Tester: : 1965 Requested By: Ludwin Peres Order Number: [id number] Jessica MD: ADRIEL SOTO Measurements Intervals [place] Rate: 90 P: 50 DC: 160 QRS: 67 QRSD: 85 T: -6 QT: 344 QTc: 422 Interpretive Statements SINUS RHYTHM POSSIBLE LEFT ATRIAL ENLARGEMENT [-0.1mV P-WAVE IN V1/V2] NONSPECIFIC T-WAVE ABNORMALITY Compared to ECG 02/23/2024 15:33:17 T-wave abnormality now present Myocardial infarct finding no longer present Electronically Signed On 05-01-2024 21:03:44 PUPPET DEVELOPER by ADRIEL SOTO [email or web address]
[2024-04-30 00:54] VITALS: BP 126/78; PULSE 89; RESP 18; TEMP 36.6; O2SAT 95
[2024-04-30 01:57] LABS: Basophils # 0.1 10^3/uL (0.0-0.1); Basophils % 0.7 %; Eosinophils # 0.1 10^3/uL (0.0-0.8); Eosinophils % 1.7 %; Hematocrit 46.6 % (36-47); Lymphocytes # 2.4 10^3/uL (0.8-4.8); Lymphocytes % 32.7 %; Mean Corpuscular HGB Conc 31.8 g/dL (30-55); Mean Corpuscular Hemoglobin 33.3 pg (27-33); Mean Platelet Volume 9.8 fL (7.4-10.4); Monocytes # 0.9 10^3/uL (0.2-0.9); Monocytes % 12.5 %; Neutrophils # 3.89 10^3/uL (1.8-7.7); Neutrophils % 52.1 %; Nucleated Red Blood Cells % 0 %; Platelet Count 217 10^3/cmm (157-399); Red Blood Count 4.44 10^6/uL (3.85-5.65); Red Cell Distribution Width 16.8 % (12.1-15.1); White Blood Count 7.46 10^3/uL (3.29-11.43)
[2024-04-30 02:18] LABS: Troponin(5th) Baseline 21 ng/L (0-10)
[2024-04-30 02:20] LABS: Blood Urea Nitrogen 21 mg/dL (6-20); Calcium 9.4 mg/dL (8.5-10.5); Carbon Dioxide 24 mmol/L (22-29); Chloride 101 mmol/L (98-107); Creatinine Clr Calc Pharmacy 140.5133; Glomerular Filtration Rate 102.7 mL/min (90-130); Glucose 168 mg/dL (65-115); Osmolality Calculated 299 mOsm/kg (285-295); Sodium 141 mmol/L (136-145)
[2024-04-30 02:21] LABS: Anion Gap 19.7 (5-19); Potassium 3.7 mmol/L (3.5-5.1)
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
[2024-04-30 03:17] LABS: Bilirubin Urine Negative (Negative); Blood Urine Non-haemolysed trace (Negative); Glucose Urine UA Negative (Normal); Ketones Urine Negative (Negative); Leukocyte Esterase Urine Negative (Negative); Nitrate Urine Negative (Negative); Protein Urine Negative (Negative); Specific Gravity, Urine 1.023 (1.005-1.030); Urine Appearance Clear (CLEAR); Urine Color Yellow (Yellow); Urobilinogen Urine 0.2 mg/dL (Negative); pH Urine 5.5 (5-7)
[2024-04-30 03:21] LABS: Add Urine Microscopic? YES; Bacteria Urine None Seen /hpf; Hyaline Casts Urine 0-4 /lpf; Squamous Epithelial Cell Urine 0-5 /hpf (0-5); WBC Urine 0-5 /hpf (0-5)
[2024-04-30 04:16] LABS: Troponin 5 2HR 19.86 ng/L (0-10); Troponin 5 2HR Delta -1.14 ABS# (0-10)
[2024-04-30 04:47] VITALS: BP 153/85; PULSE 95; RESP 16; O2SAT 97
== END 2024-04-30 04:48 | disposition home or self-care (01) ==
PROVIDERS: Emergency Provider Emergency Medicine; PCP Family Medicine
DX: R07.9 Chest pain, unspecified (principal); Z79.85 Long-term (current) use of injectable non-insulin antidiabetic drugs; I25.10 Atherosclerotic heart disease of native coronary artery without angina pectoris; J44.9 Chronic obstructive pulmonary disease, unspecified; I10 Essential (primary) hypertension
CPT/HCPCS: 36415; 71045; 80048; 81001; 84484; 85025; 93005; 99285

== ENCOUNTER 2024-05-05 20:33 | Emergency (ER) | payer MEDICAID, SELFPAY ==
--- NOTE | 2024-05-05 20:37 | XRR_ITS ---
PROCEDURE INFORMATION: Exam: XR Chest Exam date and time: 05/05/2024 9:29 PM Age: 58 years old Clinical indication: Chest pressure and chest wall pain; Additional info: SOB TECHNIQUE: Imaging protocol: Radiologic exam of the chest. Views: 1 view. COMPARISON: CR (CHEST, ) 04/30/2024 2:23 AM FINDINGS: Lungs: Persistent mild airspace opacity in the left lung base. Pleural spaces: No large pleural effusion. No distinct pneumothorax. Heart/Mediastinum: Cardiomediastinal silhouette is midline and stable in size. Bones/joints: Status post ACDF. Osseous structures are unchanged. XR/XR chest 1V portable [id number] IMPRESSION: Persistent mild airspace opacity in the left lung base. This likely represents mild atelectasis.
--- NOTE | 2024-05-05 20:42 | ECG_ITS ---
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
[2024-05-05 20:43] VITALS: BP 144/61; PULSE 94; RESP 20; TEMP 36.4; O2SAT 95; BMI 46.3
[2024-05-05 21:10] LABS: Basophils # 0.1 10^3/uL (0.0-0.1); Basophils % 0.6 %; Eosinophils # 0.2 10^3/uL (0.0-0.8); Eosinophils % 1.9 %; Hematocrit 42.5 % (36-47); Lymphocytes # 2.7 10^3/uL (0.8-4.8); Mean Corpuscular HGB Conc 32.5 g/dL (30-55); Mean Corpuscular Hemoglobin 33.3 pg (27-33); Mean Corpuscular Volume 102.4 fl (85-98); Mean Platelet Volume 10.5 fL (7.4-10.4); Monocytes % 12.4 %; Neutrophils # 4.02 10^3/uL (1.8-7.7); Neutrophils % 50.5 %; Nucleated Red Blood Cells % 0.3 %; Platelet Count 189 10^3/cmm (157-399); Red Blood Count 4.15 10^6/uL (3.85-5.65); Red Cell Distribution Width 16.8 % (12.1-15.1); White Blood Count 7.97 10^3/uL (3.29-11.43)
[2024-05-05 21:25] LABS: Anion Gap 17.5 (5-19); Blood Urea Nitrogen 19 mg/dL (6-20); Calcium 9.2 mg/dL (8.5-10.5); Carbon Dioxide 25 mmol/L (22-29); Chloride 104 mmol/L (98-107); Creatinine Clr Calc Pharmacy 120.4399; Glomerular Filtration Rate 85.9 mL/min (90-130); Glucose 168 mg/dL (65-115); Osmolality Calculated 302 mOsm/kg (285-295); Potassium 3.5 mmol/L (3.5-5.1); Sodium 143 mmol/L (136-145)
[2024-05-05 21:26] LABS: Troponin(5th) Baseline 23 ng/L (0-10)
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
--- NOTE | 2024-05-05 21:53 | PC.NURSE ---
Pt reports that just prior to nurse calling her back to treatment room she was in bathroom with friend when she became dizzy, fell, and hit her head on the bathroom stall door on top front part of her head, pt reports she is on blood thinners
[2024-05-05 22:05] LABS: Lactic Sepsis W/Reflex 2.2 mmol/L (0.5-2.2)
[2024-05-05 22:06] LABS: C Reactive Protein 13.6 mg/L (0.0-4.9)
--- NOTE | 2024-05-05 22:22 | ECG_ITS ---
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: : 1965 Requested By: Ludwin Peres Order Number: [id number] Jessica MD: ADRIEL SOTO Measurements Intervals [place] Rate: 91 P: 47 DC: 150 QRS: 56 QRSD: 98 T: -20 QT: 376 QTc: 465 Interpretive Statements SINUS RHYTHM POSSIBLE LEFT ATRIAL ENLARGEMENT [-0.1mV P-WAVE IN V1/V2] PROBABLE INFERIOR MYOCARDIAL INFARCTION , OF INDETERMINATE AGE [35 ms Q WAVE IN II/aVF] Compared to ECG 05/05/2024 20:42:25 Myocardial infarct finding now present T-wave abnormality no longer present Electronically Signed On 05-07-2024 19:28:42 SCHEDULER CONVEYOR by ADRIEL SOTO [email or web address]
[2024-05-05 22:48] VITALS: PULSE 93; RESP 29; O2SAT 89
[2024-05-05] MEDS: HYDROcodone-acetaminophen 5-325 mg Tablet 1 TAB PO (22:57)
[2024-05-05 23:28] LABS: Troponin 5 2HR 23.98 ng/L (0-10); Troponin 5 2HR Delta 0.98 ABS# (0-10)
[2024-05-05 23:41] LABS: Reflex Lactate Order REFLEX LACTIC ORDERD
[2024-05-05 23:42] LABS: Influenza A NEGATIVE (Negative); Influenza B NEGATIVE (Negative); Respiratory Syncytial Virus Ce NEGATIVE (Negative); SARS-CoV-2 PCR NEGATIVE (Negative)
[2024-05-05 23:52] VITALS: BP 149/90; PULSE 97; RESP 16; O2SAT 95
--- NOTE | 2024-05-05 23:55 | PC.NURSE ---
NURSE WENT INTO PT ROOM TO REASSESS PAIN AND CHECK ON PT. PT VERBALIZED THAT YOU PEOPLE HAVE DONE NOTHING FOR ME. I AM IN PAIN. NURSE WAS SYMPATHETIC WITH PT, GAVE HER AN UPDATE, AND NOTIFIED DR OF PTS CONCERNS.
[2024-05-06 00:18] LABS: Lactic Acid level (Lactate) 1.7 mmol/L (0.5-2.2)
== END 2024-05-06 00:09 | disposition home or self-care (01) ==
PROVIDERS: Emergency Medicine; Emergency Provider Emergency Medicine; PCP Family Medicine
DX: R07.89 Other chest pain (principal); R06.00 Dyspnea, unspecified; Z79.85 Long-term (current) use of injectable non-insulin antidiabetic drugs; Z11.52 Encounter for screening for COVID-19; Z87.891 Personal history of nicotine dependence; J44.9 Chronic obstructive pulmonary disease, unspecified; I25.10 Atherosclerotic heart disease of native coronary artery without angina pectoris; I10 Essential (primary) hypertension
CPT/HCPCS: 36415; 71045; 80048; 83605; 84484; 85025; 86140; 87040; 87637; 93005; 99285

== ENCOUNTER 2024-05-27 02:21 | Emergency (ER) | payer MEDICAID, SELFPAY ==
[2024-05-27 02:25] VITALS: BP 138/101; PULSE 113; RESP 18; TEMP 37.1; O2SAT 96; BMI 48.2
--- NOTE | 2024-05-27 02:31 | ECG_ITS ---
[facility] Date: 2024-05-27 Pat Name: Le Barnhart Department: Room: Gender: Female Director Of Federal Sales: : 1965 Requested By: Ludwin Peres Order Number: [id number] Lopez MD: David Escalante M.D. Measurements Intervals [place] Rate: 89 P: 0 LA: 0 QRS: 43 QRSD: 87 T: 17 QT: 379 QTc: 462 Interpretive Statements SUPRAVENTRICULAR RHYTHM NONSPECIFIC ST & T-WAVE ABNORMALITY Compared to ECG 05/05/2024 22:22:46 Supraventricular rhythm now present T-wave abnormality now present Sinus rhythm no longer present Myocardial infarct finding no longer present Electronically Signed On 05-28-2024 19:35:07 FISHING LINE WINDING MACHINE OPERATOR by David Escalante M.D. [email or web address]
--- NOTE | 2024-05-27 02:41 | XRR_ITS ---
PROCEDURE INFORMATION: Exam: XR Sacrum and Coccyx, 2 or More Views Exam date and time: 05/27/2024 2:48 AM Age: 58 years old Clinical indication: Pain in coccyx area; Prior surgery; Surgery date: 6+ months; Surgery type: Appy; C/O persistent low back and coccygeal pain after falling directly on buttocks yesterday when going to sit down in a chair. ; Additional info: Fall tailbone pain TECHNIQUE: Imaging protocol: XR of the sacrum and coccyx, 2 or more views. COMPARISON: CR (PELVIS, ) 05/27/2024 2:43 AM FINDINGS: Bones/joints: Mild degenerative changes involve the sacroiliac joints. No acute fracture. Soft tissues: Normal. XR/XR sacrum coccyx min 2V [id number] IMPRESSION: No acute findings.
--- NOTE | 2024-05-27 02:41 | XRR_ITS ---
PROCEDURE INFORMATION: Exam: XR Lumbosacral Spine Exam date and time: 05/27/2024 2:43 AM Age: 58 years old Clinical indication: Low back pain; Prior surgery; Surgery date: 6+ months; Surgery type: Appy; C/O persistent low back and coccygeal pain after falling directly on buttocks yesterday when going to sit down in a chair. ; Additional info: Fall low back pain TECHNIQUE: Imaging protocol: Radiologic exam of the lumbosacral spine. Views: 2 or 3 views. COMPARISON: CT lumbar spine recon [id number] 08/11/2023 12:19 PM FINDINGS: Bones/joints: There is grade 1 anterolisthesis of L4 respect to L5 secondary to facet arthropathy there is an age-indeterminate superior endplate L1 compression fracture associated with proximally 15-20% loss of vertebral body stature. This fracture is new when compared to reference exam. No additional fractures. Diffuse facet arthropathy present. Soft tissues: Unremarkable. XR/XR lumbar spine 2-3V* [id number] IMPRESSION: 1. Age-indeterminate superior endplate L1 compression fracture. This fracture is new when compared to reference CT. 2. Multilevel degenerative changes involving the lumbar spine with chronic grade 1 anterolisthesis of L4 respect to L5
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
[2024-05-27] MEDS: naproxen 500 mg Tablet PO (02:54)
[2024-05-27 03:00] VITALS: BP 138/101; PULSE 97; O2SAT 94
[2024-05-27 03:37] VITALS: BP 138/101; PULSE 82; O2SAT 96
== END 2024-05-27 03:35 | disposition home or self-care (01) ==
PROVIDERS: Emergency Provider Emergency Medicine; PCP Family Medicine
DX: S32.010A Wedge compression fracture of first lumbar vertebra, initial encounter for closed fracture (principal); W19.XXXA Unspecified fall, initial encounter; Z87.891 Personal history of nicotine dependence; I25.10 Atherosclerotic heart disease of native coronary artery without angina pectoris; J44.9 Chronic obstructive pulmonary disease, unspecified; I10 Essential (primary) hypertension
CPT/HCPCS: 72100; 72220; 93005; 99284

== ENCOUNTER 2024-06-06 14:20 | Emergency (ER) | payer MEDICAID, SELFPAY ==
--- NOTE | 2024-06-06 14:27 | XRR_ITS ---
PROCEDURE INFORMATION: Exam: XR Chest Exam date and time: 06/06/2024 3:01 PM Age: 58 years old Clinical indication: Cough TECHNIQUE: Imaging protocol: Radiologic exam of the chest. Views: 1 view. COMPARISON: CR (CHEST, ) 05/05/2024 9:29 PM FINDINGS: Lungs: Improved but mildly persistent left lung base opacities reflecting mild residual inflammation versus atelectasis and/or scarring. The remaining lungs are clear. Pleural spaces: Unremarkable. No pleural effusion. No pneumothorax. Heart/Mediastinum: Mild cardiomegaly. Bones/joints: Unremarkable. XR/XR chest 1V portable [id number] IMPRESSION: As above.
[2024-06-06 14:28] VITALS: BP 145/74; PULSE 106; TEMP 36.5; O2SAT 92
--- NOTE | 2024-06-06 14:36 | ECG_ITS ---
[employer] Test Date: 2024-06-06 Pat Name: Le Barnhart Department: Room: Gender: Female Gastroenterology Nurse: : 1965 Requested By: Jonathan Rice Order Number: [id number] Reading MD: ADRIEL SOTO Measurements Intervals [place] Rate: 99 P: 28 CO: 147 QRS: 67 QRSD: 88 T: 7 QT: 336 QTc: 432 Interpretive Statements SINUS RHYTHM POSSIBLE LEFT ATRIAL ENLARGEMENT [-0.1mV P-WAVE IN V1/V2] NONSPECIFIC ST & T-WAVE ABNORMALITY Compared to ECG 05/27/2024 02:31:46 Supraventricular rhythm no longer present T-wave abnormality still present Electronically Signed On 06-06-2024 18:06:48 CDT by ADRIEL SOTO [email or web address]
[2024-06-06 15:06] VITALS: BP 162/101; PULSE 98; O2SAT 96
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
[2024-06-06] MEDS: methylPREDNISolone sod succ 125 mg/2 mL INJ IVP (15:33)
[2024-06-06 15:40] VITALS: PULSE 98; RESP 22; O2SAT 96
[2024-06-06 15:49] LABS: Basophils % 0.3 %; Eosinophils # 0.1 10^3/uL (0.0-0.8); Eosinophils % 0.9 %; Hematocrit 41.9 % (36-47); Lymphocytes # 0.9 10^3/uL (0.8-4.8); Lymphocytes % 10.8 %; Mean Corpuscular HGB Conc 32.2 g/dL (30-55); Mean Corpuscular Hemoglobin 32.8 pg (27-33); Mean Corpuscular Volume 101.9 fl (85-98); Mean Platelet Volume 11.5 fL (7.4-10.4); Monocytes # 0.7 10^3/uL (0.2-0.9); Monocytes % 8.2 %; Neutrophils # 6.66 10^3/uL (1.8-7.7); Neutrophils % 77.7 %; Nucleated Red Blood Cells # 0.4 /100WBC; Nucleated Red Blood Cells % 4.1 %; Platelet Count 165 10^3/cmm (157-399); Red Blood Count 4.11 10^6/uL (3.85-5.65); Red Cell Distribution Width 16.3 % (12.1-15.1); White Blood Count 8.58 10^3/uL (3.29-11.43)
[2024-06-06] MEDS: ipratropium-albuterol 3 mL Neb INHALATION ×3 (15:50→15:51)
[2024-06-06 16:00] VITALS: BP 180/96; PULSE 100; O2SAT 94
[2024-06-06 16:19] LABS: NT Pro B Type Natriuretic Pept 1023 pg/mL (0-125); Procalcitonin 0.16 ng/mL (0-0.5)
[2024-06-06 16:30] LABS: Albumin Level 3.3 g/dL (3.5-5.2); Alkaline Phosphatase 174 U/L (35-105); Blood Urea Nitrogen 16 mg/dL (6-20); Calcium 9.3 mg/dL (8.5-10.5); Carbon Dioxide 25 mmol/L (22-29); Chloride 99 mmol/L (98-107); Creatinine Clr Calc Pharmacy 168.6159; Globulin 3.7 g/dL (1.3-4.6); Glomerular Filtration Rate 126.7 mL/min (90-130); Glucose 236 mg/dL (65-115); Osmolality Calculated 293 mOsm/kg (285-295); Sodium 137 mmol/L (136-145); Total Bilirubin 0.2 mg/dL (0.15-1.2)
[2024-06-06 16:32] LABS: Alanine Aminotransferase 41 U/L (0-33); Anion Gap 16.6 (5-19); Aspartate Amino Transferase 25 U/L (0-32); Potassium 3.6 mmol/L (3.5-5.1)
[2024-06-06] MEDS: FUROsemide 10 mg/mL SDV 10mL 60 MG IVP (16:48)
[2024-06-06 16:57] VITALS: BP 179/88; PULSE 98; O2SAT 94
== END 2024-06-06 16:58 | disposition home or self-care (01) ==
PROVIDERS: Emergency Provider Physician Assistant; PCP Family Medicine
DX: R06.09 Other forms of dyspnea (principal); J44.9 Chronic obstructive pulmonary disease, unspecified; Z79.01 Long term (current) use of anticoagulants; Z79.4 Long term (current) use of insulin; Z87.891 Personal history of nicotine dependence; I10 Essential (primary) hypertension; I25.10 Atherosclerotic heart disease of native coronary artery without angina pectoris
CPT/HCPCS: 36415; 71045; 80053; 83880; 84145; 85025; 93005; 94640; 96374; 96375; 99285; J1940; J2919; J9999

== ENCOUNTER 2024-07-11 16:25 | Emergency (ER) | payer MEDICAID, SELFPAY ==
[2024-07-11 16:48] VITALS: PULSE 105; TEMP 37.7; O2SAT 92; BMI 36.0
[2024-07-11] MEDS: cefTRIAXone 1,000 MG in water for injection-sterile 2.1 ML 2.1 MG IM (18:05)
[2024-07-11 18:16] VITALS: BP 156/115; PULSE 98; O2SAT 92
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
== END 2024-07-11 18:17 | disposition home or self-care (01) ==
PROVIDERS: Emergency Provider Physician Assistant; PCP Family Medicine
DX: L03.115 Cellulitis of right lower limb (principal); Z79.01 Long term (current) use of anticoagulants; Z79.4 Long term (current) use of insulin; Z87.891 Personal history of nicotine dependence; I10 Essential (primary) hypertension; J44.9 Chronic obstructive pulmonary disease, unspecified; I25.110 Atherosclerotic heart disease of native coronary artery with unstable angina pectoris
CPT/HCPCS: 96372; 99284; J0696; J9999

== ENCOUNTER 2024-08-19 22:19 | Emergency (ER) | payer MEDICAID, SELFPAY ==
[2024-08-19 22:20] VITALS: BP 132/67; PULSE 90; RESP 22; TEMP 36.7; O2SAT 97; BMI 33.1
--- NOTE | 2024-08-19 23:14 | ECG_ITS ---
[employer] Test Date: 2024-08-19 Pat Name: Le Barnhart Department: Room: Gender: Female Registered Occupational Therapist: : 1965 Requested By: Fredi Lara Order Number: [id number] Lopez MD: David Escalante M.D. Measurements Intervals [place] Rate: 97 P: 247 AK: 130 QRS: 57 QRSD: 91 T: -17 QT: 336 QTc: 428 Interpretive Statements ECTOPIC ATRIAL RHYTHM NONSPECIFIC T-WAVE ABNORMALITY Compared to ECG 06/06/2024 14:36:37 Ventricular premature complex(es) now present Sinus rhythm no longer present T-wave abnormality still present Electronically Signed On 08-23-2024 11:44:52 CDT by David Escalante M.D. [id number]
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
[2024-08-19 23:56] LABS: Basophils % 0.4 %; Eosinophils # 0.1 10^3/uL (0.0-0.8); Hematocrit 40.1 % (36-47); Lymphocytes # 2.2 10^3/uL (0.8-4.8); Lymphocytes % 24.1 %; Mean Corpuscular HGB Conc 31.2 g/dL (30-55); Mean Corpuscular Hemoglobin 32.2 pg (27-33); Mean Corpuscular Volume 103.4 fl (85-98); Mean Platelet Volume 11.4 fL (7.4-10.4); Monocytes % 10.6 %; Neutrophils # 5.67 10^3/uL (1.8-7.7); Neutrophils % 62.9 %; Nucleated Red Blood Cells # 0.2 /100WBC; Nucleated Red Blood Cells % 1.9 %; Platelet Count 195 10^3/cmm (157-399); Red Blood Count 3.88 10^6/uL (3.85-5.65); Red Cell Distribution Width 19.3 % (12.1-15.1); White Blood Count 9.03 10^3/uL (3.29-11.43)
[2024-08-20 00:16] LABS: Lactic Sepsis W/Reflex 2.2 mmol/L (0.5-2.2)
[2024-08-20 00:18] LABS: Alanine Aminotransferase 45 U/L (0-33); Albumin Level 4.1 g/dL (3.5-5.2); Alkaline Phosphatase 139 U/L (35-105); Aspartate Amino Transferase 42 U/L (0-32); Blood Urea Nitrogen 24 mg/dL (6-20); Calcium 9.7 mg/dL (8.5-10.5); Carbon Dioxide 26 mmol/L (22-29); Chloride 102 mmol/L (98-107); Creatinine Clr Calc Pharmacy 92.6705; Globulin 3.3 g/dL (1.3-4.6); Glomerular Filtration Rate 85.6 mL/min (90-130); Glucose 198 mg/dL (65-115); Osmolality Calculated 310 mOsm/kg (285-295); Sodium 145 mmol/L (136-145); Total Bilirubin 0.2 mg/dL (0.15-1.2); Total Protein 7.4 g/dL (6.6-8.7)
[2024-08-20 00:49] LABS: Anion Gap 20.3 (5-19); Potassium 3.3 mmol/L (3.5-5.1)
[2024-08-20 01:40] LABS: Reflex Lactate Order REFLEX LACTIC ORDERD
== END 2024-08-20 00:08 | disposition left against medical advice (07) ==
PROVIDERS: Emergency Provider Emergency Medicine; PCP Family Medicine
DX: J44.1 Chronic obstructive pulmonary disease with (acute) exacerbation (principal); M54.50 Low back pain, unspecified; Z53.21 Procedure and treatment not carried out due to patient leaving prior to being seen by health care provider; Z79.01 Long term (current) use of anticoagulants; Z79.4 Long term (current) use of insulin; Z87.891 Personal history of nicotine dependence; I10 Essential (primary) hypertension; I25.10 Atherosclerotic heart disease of native coronary artery without angina pectoris
CPT/HCPCS: 80053; 83605; 85025; 93005; 99284

== ENCOUNTER 2024-08-31 02:12 | Emergency (ER) | payer MEDICAID, SELFPAY ==
[2024-08-31 02:15] VITALS: BP 162/90; PULSE 90; RESP 20; TEMP 36.9; O2SAT 96; BMI 33.6
[2024-08-31 02:26] LABS: Bilirubin Urine Negative (Negative); Blood Urine Negative (Negative); Glucose Urine UA 3+ (Normal); Ketones Urine Negative (Negative); Leukocyte Esterase Urine Negative (Negative); Nitrate Urine Negative (Negative); Protein Urine Negative (Negative); Urine Appearance Clear (CLEAR); Urine Color Yellow (Yellow); Urobilinogen Urine 0.2 mg/dL (Negative)
[2024-08-31 02:31] LABS: Bacteria Urine Trace /hpf; Hyaline Casts Urine 0-4 /lpf; Squamous Epithelial Cell Urine 0-5 /hpf (0-5); WBC Urine 0-5 /hpf (0-5)
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
[2024-08-31] MEDS: HYDROmorphone 0.5 MG/0.5 ML INJ 2 MG IM (02:47)
[2024-08-31 02:48] LABS: Add Urine Culture? Yes; Specific Gravity, Urine 1.039 (1.005-1.030); UA Slide Review UA Slide Review Perf
[2024-08-31 03:10] VITALS: BP 161/91; PULSE 81; RESP 22; O2SAT 95
== END 2024-08-31 03:12 | disposition home or self-care (01) ==
PROVIDERS: Emergency Provider Student in an Organized Health Care Education/Training Program; PCP Family Medicine
DX: R20.8 Other disturbances of skin sensation (principal); T40.2X5A Adverse effect of other opioids, initial encounter; G89.29 Other chronic pain; M54.9 Dorsalgia, unspecified; T40.2X6A Underdosing of other opioids, initial encounter; Z91.138 Patient's unintentional underdosing of medication regimen for other reason; I10 Essential (primary) hypertension; J44.9 Chronic obstructive pulmonary disease, unspecified; I25.10 Atherosclerotic heart disease of native coronary artery without angina pectoris; Z87.891 Personal history of nicotine dependence; Z79.899 Other long term (current) drug therapy; Z79.85 Long-term (current) use of injectable non-insulin antidiabetic drugs; Z79.4 Long term (current) use of insulin; Z79.01 Long term (current) use of anticoagulants; Z79.891 Long term (current) use of opiate analgesic
CPT/HCPCS: 81001; 87086; 96372; 99284; J1171

== ENCOUNTER 2024-09-17 13:31 | Emergency (ER) | payer MEDICAID, SELFPAY ==
--- OUTSIDE RECORDS SUMMARY | 2020-06-27 10:30 | XMS_ITS | Continuity of Care Document ---
Author Organization [facility] Address [address] [place] [address] Phone Care Team Providers Care Finishing Area Supervisor Name Role Phone Unavailable Unavailable Unavailable Allergies, [...] - Active Procedures Procedure Date OFFICE/OUTPATIENT VISIT, [facility] Advance Directives Directive Yes / No Effective Date File Name No Information Encounters Encounter Description Practice Location Reason(s) For Visit Diagnoses Date Provider Providers Copied on Encounter OFFICE/OUTPA TIENT VISIT, [facility], [address], [place], [place], [address] , [place] tel: [phone] [facility] follow up [...] party ID Authoriza dioni(s) Medicaid - Medical [id number] Social History Type Description Quantity Date Captured [...] her vagina and is being managed at [facility]. Patient has HTN, hip pain, [...] her vagina and is being managed at [facility]. Patient has HTN, hip pain, [...]
--- OUTSIDE RECORDS SUMMARY | 2024-07-19 03:00 | XMS_ITS ---
Author Organization [facility] Address [address] [facility] [place] [address] Care Team Providers Care Chief Technician Name Role Phone Delta Wade Primary Care Provider Jose Cruz Harvey [phone] REASON FOR VISIT [phone] Encounters Encounter Location Date Provider Diagnosis [facility] [address] [place] [address] [place] [address] 07/19/2024 Jose Cruz Forde Plan Of Treatment No Information Progress Notes * GIANFRANCO DIAZDOB: [birth year] (59 yo F)Acc No.[id number]:07/19/2024 Pulmonary Function Test Patient: Jahaira GIANFRANCO HANNA Provider: Abdirahman Forde MD :1965 A ge:59 Y S ex:Female Date:07/19/2024 Address:[address] [place], [place] [phone] Pcp:Delta Wade Subjective: * Chief Complaints: * 1 . [id number]. * Medical History: Objective: * Vitals: Assessment: Plan: * Treatment: * Billing Information: * Visit Code: * Procedure Codes: * Electronic signature of Natasha Forde MD on 09/17/2024 at 01:38 PM CDT Sign off status: Pending * Provider: Abdirahman Forde MD Date: 07/19/2024 Generated for Sydnii ng/Fatereg/eTransmitting on: 0 09/17/2024 01:38 PM CDT
--- OUTSIDE RECORDS SUMMARY | 2024-07-19 05:10 | XMS_ITS ---
Author Organization [facility] Address [address] [facility] [place] [address] Care Team Providers Care Delivery Crew Worker Name Role Phone Delta Wade Primary Care Provider Jose Cruz Harvey Unavailable [phone] REASON FOR VISIT abnormal chest CT Medications [...] Encounter Location Date Provider Diagnosis [facility] [address] [place] [address] [place] [address] 07/19/2024 Jose Cruz Forde Solitary pulmonary nodule [...] remission (ICD-10 - F17.211) Patient smoked a nyrp-oip-qwq for 45 years. She has been abstinent [...] cigaret taiwo, in remission Patient smoked a cupr-jcg-zez for 45 yea rs. She has been abstinent for a year now. Shortness of breath Obtain PFT. Progress Notes * DIAZ, GIANFRANCO PageDOB: 6 (59 yo F)Acc No.[id number]:07/19/2024 Progress Notes Patient: GIANFRANCO GARCIA Provider: Abdirahman Forde MD :1965 A ge:59 Y S ex:Female Date:07/19/2024 Address:[address] [place], [place] [phone] Pcp:Delta Wade Subjective: * Chief Complaints: * [...] ION 07/08/24 but was hospitalized twice at [facility] and unable to complete her pre-surgical [...] cigarettes, in remission Notes: Patient smoked a venv-tvm-ebg for 45 years. She has been abstinent [...] of Natasha Forde MD on 09/17/2024 at 01:37 PM CDT Sign off status: Pending * Provider: Abdirahman Forde MD Date: 07/19/2024 Generated for Mani contreras/Moshe/Adrianitting on: 0 09/17/2024 01:37 PM CDT History and Physical Notes * HPI [...] ION 07/08/24 but was hospitalized twice at [facility] and unable to complete her pre-surgical [...]
--- OUTSIDE RECORDS SUMMARY | 2024-07-22 05:00 | XMS_ITS ---
Author Organization [facility] Address [address] [place] [address] Care Team Providers Care Sink Maker Name Role Phone Delta Wade Primary Care Provider Jose Cruz Harvey [phone] Encounters Encounter Location Date Provider Diagnosis [facility] [address] [place] [address] [place] [address] 07/22/2024 Jose Cruz Forde Plan Of Treatment No Information Progress Notes * GIANFRANCO DIAZDOB: [birth year] (59 yo F)Acc No.[id number]:07/22/2024 Patient: Jahaira HANNA GIANFRANCO Page Provider: Abdirahman Forde MD :1965 A ge:59 Y S ex:Female Date:07/22/2024 Address:[address] [place], [place] [phone] Pcp:Delta Wade * Billing Information: * Visit Code: * Procedure Codes: * Electronic signature of Natasha Forde MD on 09/17/2024 at 01:39 PM CDT Sign off status: Pending * Provider: Abdirahman Forde MD Date: 07/22/2024 Generated for Sydnii ng/Fatereg/eTransmitting on: 09/17/2024 01:39 PM CDT
--- OUTSIDE RECORDS SUMMARY | 2024-09-09 22:42 | XMS_ITS | Encounter Summary ---
Author Organization [facility] Address [address] [place] [address] Care Team Providers Care Biodiesel Product Development Manager Name Role Phone Delta Wade MD Primary Care Provider [phone] Reason for Visit * Reason Comments Shortness of Breath Patient arrives with complaint of shortness of breath. Patient states she began having increased difficulty breathing about 5 hours ago. Patient increased work of breathing in triage. Encounter Details Date Type Department Care Team (Late st Contact Info) Description 09/09/2024 10:42 PM CDT - 09/09/2024 10:46 PM CDT Emergency [facility] Emergency Department [address] [place] [address] Discharge Disposition: Left without being seen Social History Tobacco Use Types Packs/Day Years Used Date Smoking Tobacco: Former Cigarettes 1 43 S tarted: 07/21/2022 Smokeless Tobacco: Never Alcohol Use Standard Drinks/Week Comments No 0 (1 standard drink = 0.6 oz pur e alcohol) Feeling Safe Answer Date Recorded Within the last year, have y ou been afraid of your partner or ex-partner? No 06/13/2019 Within the last year, have y ou been humiliated or emotionally abused in other ways by your partner or ex-partner? No Within the last year, have y ou been kicked, hit, slapped, or otherwise physically hurt by your partner or ex-partner? No 06/13/2019 Within the last year, have y ou been raped or forced to have any kind of sexual activity by your partner or ex-partner? No 06/13/2019 Social Connections Answer Date Recorded In a typical week, how many times do you talk on the phone with family, friends, or neighbors? More than three times a week 06/13/2019 How often do you get togethe r with friends or relatives? Never 06/13/2019 How often do you attend chur or gnosticism services? More than 4 times per year 06/13/2019 Do you belong to any clubs o r organizations such as jewish groups, unions, fraternal or athletic groups, or school groups? No 06/13/2019 How often do you attend meet ings of the clubs or organizations you belong to? Never 06/13/2019 Are you , , di vorced, , never , or living with a partner? 06/13/2019 Financial Resource Strain Answer Date R ecorded How hard is it for you to pa y for the very basics like food, housing, medical care, and heating? Not hard at all 06/13/2019 Food Insecurity Answer Date Recorded Within the past 12 months, y ou worried that your food would run out before you got the money to buy more. Never true 06/13/19 20 Within the past 12 months, t he food you bought just didn't last and you didn't have money to get more. Never true 06/13/2019 Transportation Needs Answer Date Record ed In the past 12 months, has l ack of transportation kept you from medical appointments or from getting medications? No 05/22 In the past 12 months, has l ack of transportation kept you from meetings, work, or from getting things needed for daily living? No 06/13/2019 Feeling Safe Answer Date Recorded Are you in a relationship wi th someone who hurts you emotionally and/or physically? No 09/10/2024 Food Insecurity Answer Date Recorded Patient needs follow up regardin 07/13/2024 Transportation Needs Answer Date Record ed Patient needs follow up regardin 07/13/2024 Housing Stability Answer Date Recorded Social/Environmental Concerns No concerns Utility Needs Answer Date Recorded Patient needs follow up regardin 07/13/2024 Comments No Sex and Gender Information Value Date Recorded Sex Assigned at Not on file Legal Sex Female 11:49 PM FRAME NA[employer]ER Gender Identity Not on file Sexual Orientation Not on file documented as of this encounter Last Filed Vital Signs Vital Sign Reading Time Taken Comments Blood Pressure 121/91 09/09/2024 10:21 PM CDT Pulse 84 09/09/2024 10:21 PM CDT Temperature 36.9 C (98.5 F) 09/09/2024 9:28 PM CDT Respiratory Rate 32 09/09/2024 10:21 PM CDT Oxygen Saturation 95% 09/09/2024 10:21 PM CDT Inhaled Oxygen Concentration - - Weight - - Height - - Body Mass Index - - documented in this encounter Medications at Time of Discharge ipratropium-albut Lisa (DUONEB) 0.5 mg-3 mg(2.5 mg base)/3 mL Solution for Nebulization Take 3 mL by inhalation every 6 hours as needed for Shortness of Breath. 60 Each 1 08/26/2024 5 ranolazine ER (RANEXA) 500 mg Extended Release 12 hour tablet Take 1 Tablet (500 mg) by mouth every 12 hours. 60 Tablet 1 08/27/2024 5 budesonide 160 mcg-glycopyr 9 mcg-formot 4.8 mcg/actuation HFA inhaler Take 2 Puffs by inhalation 2 times daily. 60 Each 1 08/26/2024 5 levalbuterol (XOPENEX) 1.25 mg/3 mL Solution for Nebulization Take 1.25 mg by inhalation every 6 hours as needed for Shortness of Breath or Wheezing. 07/25/2024 triamcinolone acetonide (KENALOG) 0.1 % OintmentIndicatio ns:Dermatitis Apply to affected area 2 times daily as needed for Other (See Comment) (rash). 10 Gram 08/16/2024 insulin lispro (HumaLOG,ADMELOG) 100 unit/mL pen syringe Inject 14 Units by subcutaneous injection 3 times daily with meals. 08/06/2024 Lantus Solostar U-100 Insulin 100 unit/mL (3 mL) solution for injection Inject 25 Units by subcutaneous injection daily at bedtime. 08/06/2024 oxygen home delivery Home Oxygen Concentrator yes at 3 L/M Rest, 3 L/M Activity, 3 L/M Sleep, Delivery Device: Nasal Cannula Portability: yes, 3 L/M Rest, L/M Activity, May provide device best for patient needs(E system,home fill, conserving device) Length of Need: 99 months 1 Each 08/06/2024 oxyCODONE-acetami nophen (PERCOCET) 5-325 mg tablet Take 1 Tablet by mouth every 6 hours as needed. Ventolin HFA 90 mcg/actuation inhaler Take 2 Puffs by inhalation every 6 hours as needed. isosorbide mononitrate (IMDUR) 30 mg Extended Release 24 hour tabletIndications :Chest pain, unspecified type,Congestive heart failure, unspecified HF chronicity, unspecified heart failure type (CMS/HCC) TAKE 1 TABLET BY MOUTH EVERY DAY 30 Tablet 1 07/05/2024 amLODIPine (NORVASC) 2.5 mg tablet Take 2.5 mg by mouth late in the day. 03/30/2023 atorvastatin (LIPITOR) 40 mg tablet Take 40 mg by mouth daily at bedtime. 05/13/2023 FLUoxetine (PROzac) 40 mg capsule Take 40 mg by mouth daily at bedtime. 03/30/2023 potassium CHLORIDE (KLOR-CON) 10 mEq Extended Release tablet Take 1 Tablet by mouth daily. 05/09/2024 tiZANidine (ZANAFLEX) 2 mg Tablet Take 2 mg by mouth every 8 hours as needed. 05/13/2023 nitroglycerin (NITROSTAT) 0.4 mg Tablet, Sublingual Place 0.4 mg under tongue. 05/19/2024 OLANZapine (ZyPREXA) 10 mg tablet Take 10 mg by mouth daily at bedtime. 04/12/2024 aspirin (CARTER CHEWABLE) 81 mg Tablet, Chewable Take 81 mg by mouth daily. LORazepam (ATIVAN) 0.5 mg tabletIndications :Anxiety state Take 1 Tablet (0.5 mg) by mouth every 8 hours as needed for Anxiety. 20 Tablet 04/11/2024 warfarin (COUMADIN) 10 mg tablet Take 1 Tablet by mouth daily. 03/22/2024 fluorouraciL (EFUDEX) 5 % Cream APPLY TO AFFCETED AREA TWICE A DAY FOR 4 WEEKS 02/01/2024 promethazine-dext romethorphan (PHENERGAN-DM) 6.25-15 mg/5 mL syrup Take 10 mL by mouth every 4 hours as needed for Cough. 12/02/2023 buPROPion HCL (WELLBUTRIN XL) 300 mg Extended Release 24 hour tablet Take 1 Tablet by mouth daily. 01/19/2024 portable oxygenIndications :Chronic obstructive pulmonary disease, unspecified COPD type (CMS/HCC),Oxygen dependent Face to Face completed within 30 days: yes Length of Need: 99 months By: Nasal Cannula Continuously at 3 L/min. 1 Each 08/27/2023 TechLITE Pen Needle 29 gauge x 1/2 Needle USE directed with Vickikeza. 12/29/2022 naloxone (NARCAN) 4 mg/spray [place], Non-Aerosol EMERGENCY USE ONLY: Administer 1 spray (4 mg) in one nostril one time. May repeat in alternating nostrils every 2-3 min until responsive or EMS arrives. 2 Each 3 01/06/2023 blood sugar diagnostic StripIndications: Type 2 diabetes mellitus without complication, without long-term current use of insulin ([facility]) Use to test blood glucose up to QID PRN symptoms. 100 Each 11 12/17/2022 OneTouch Delica Plus Lancet 30 gauge USE TO test fasting blood glucose DAILY 11/04/2022 Blood-Glucose Meter KitIndications:Ty pe 2 diabetes mellitus without complication, without long-term current use of insulin ([facility]) Use to test blood glucose up to TID PRN symptoms. 1 Each 12/02/2022 predniSONE (DELTASONE) 20 mg tablet Take 2 Tablets (40 mg) by mouth daily with breakfast for 3 days, THEN 1.5 Tablets (30 mg) daily with breakfast for 3 days, THEN 1 Tablet (20 mg) daily with breakfast for 3 days, THEN 0.5 Tablets (10 mg) daily with breakfast for 3 days. 15 Tablet 08/30/2024 sertraline (ZOLOFT) 50 mg tablet Take 1 Tablet by mouth daily. 01/03/2024 rOPINIRole (REQUIP) 0.5 mg tablet Take 0.5 mg by mouth daily at bedtime. 12/14/2023 5 documented as of this encounter ED Notes * Bryce Mcneal RN - 09/09/2024 10:45 PM CDT Patient stated she was going to leave, Patient refused to sign paperwork. * Lou Stephen - 09/09/2024 9:47 PM CDT Triage Protocol EKG [facility] EKG obtained in triage and reviewed by: Dr. Menjivar at Time: 2139 Patient will: Remain in the waiting room under the triage protocol and will be roomed per usual triage process. Primary triage nurse Bryce notified. * Tiffanie Childress NP - 09/09/2024 9:32 PM CDT Patient is a very complex 59-year-old female who was just dismissed at about 1130 this morning witha diagnosis of acute on chronic heart failure. Patient states that she has been home about an hour when she tried to wash her hair she left her oxygen on as usual and she got suddenly short of breath. She states her oxygen level dropped to 74 and she had a syncopal episode that did not result in injury. Patient appears acutely air hungry in triage, her pulse ox is 98% on her normal 3 L. Patient states she feels much worse than she did when she was dismissed. Patient is asking for the BiPAP stating that we will fix me right up. Vitals: 09/09/24 2128 BP: (!) 145/74 Pulse: 90 Resp: 18 Temp: 98.5 ??F (36.9 ??C) SpO2: 98% Exam: Constitutional: Alert and oriented with no apparent distress. Respiratory: No obvious signs of respiratory distress. Neuro: Alert and oriented X3. Psych: Cooperative. Normal mood and affect. Pain Scale 6/10 A medical screening exam was initiated in our triage area tailored to the patient's chief complaint. Focused diagnostics and therapies have been initiated. ER staff will continue and expand as appropriate to help identify any life or limb threatening conditions while awaiting an exam room in the main area of the ED. Continued care, evaluation and management of this patient will be performed throughout their stay. I advised patient to inform assistant front desk manager nurse of any change in symptoms. The patient's evaluation and anticipated ongoing care plan was discussed in detail with them to make sure theyare aware of what to expect during their stay. documented in this encounter Plan of Treatment Upcoming Encounters Date Type Department Care Team (Late st Contact Info) Description 09/22/2024 10:00 AM CDT Office Visit [facility] Neurosurgery [address] [place] [address] Jerson Salas PA [address] [place] [address] 10/06/2024 4:00 PM CDT Office Visit [facility] Pulmonology [address] [place] [address] Cristian Metcalf FNP [address] [place] [address] documented as of this encounter Goals Goal Patient Goal Type Associated Problems Recent Progress Patient-Stated? 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: bang : 1965 Requested By: Order Number: [id number] Reading MD: Echo Tapia Measurements Intervals [place] Rate: 84 P: 44 KS: 150 QRS: 44 QRSD: 78 T: 6 QT: 358 QTc: 423 Interpretive Statements Normal sinus rhythm Possible Inferior infarct, age undetermined Abnormal ECG Electronically Signed On 09-11-2024 12:55:34 CDT by Echo Tapia Procedure Note Provider, Historical - 09/11/[address] [address] Test Date: 2024-09-09 Pat Name: GIANFRANCO DIAZ Department: 11 Room: Gender: Female [employer] Teacher: [place] [id number] : 1965 Requested By: Order Number: [id number] Reading : Echo Tapia Measurements Intervals [place] Rate: 84 P: 44 KS: 150 QRS: 44 QRSD: 78 T: 6 QT: 358 QTc: 423 Interpretive Statements Normal sinus rhythm Possible Inferior infarct, age undetermined Abnormal ECG Electronically Signed On 09-11-2024 12:55:34 CDT by Echo Tapia us Tiffanie Childress GROUP TEACHER ECG ORDERABLES Final Result INTERFACE SYSTEM Refer to clinic/hospital department documented in this encounter Visit Diagnoses Not on filedocumented in this encounter Additional Health Concerns Active Problems Noted Date Diagnosed Date Heart Failure Problem 05/12/2024 documented as of this encounter Care Teams Biodiesel Product Development Manager Relationship Specialty Start Date End Date Delta Wade MD [address] [place] [id number] PCP - General Family Practice 03/25/24 documented as of this encounter
--- OUTSIDE RECORDS SUMMARY | 2024-09-10 11:40 | XMS_ITS | Encounter Summary ---
Author Organization [facility] Address [address] [place] [address] Care Team Providers Care Zinc Etcher Name Role Phone Delta Wade MD Primary Care Provider [phone] Reason for Visit * Reason Comments Fluid Management Pt stated she is her e for fluid management day 2. Pt stated she is having shortness of breath and takes a diuretic at home. Pt family stated she is worse today. * Auth/Cert (Routine) Specialty Diagnoses / Procedures Referred By Marcelle smith Referred To Contact Emergency Medicine [facility] Emergency Department [address] [place] [phone] Phone: tel: fax: Referral ID Status Reason Start Date Expiration Date Visits Re quested Visits Authorized [id number] 1 1 Encounter Details Date Type Department Care Team (Latest Contact Info) Description 09/10/2024 11:40 AM CDT - 09/10/2024 11:59 PM T Hospital Encounter [facility] [address] [place] [phone] Don Causey DO [address] [facility] [address] [place] [address] Discharge Disposition: Home or Self Care Social History Tobacco Use Types Packs/Day Years [...] How often do you attend chur or restorationist services? More than 4 times per year 06/13/2019 Do you belong to any clubs o r organizations such as hinduism groups, unions, fraternal or athletic groups, or [...] who hurts you emotionally and/or physically? 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 Gender Identity Not on file Sexual Orientation Not on file documented as of this encounter Last Filed Vital Signs Vital Sign Reading Time Taken Comments Blood Pressure 143/91 09/10/2024 1:48 PM CDT Pulse 84 09/10/2024 1:48 PM CDT Temperature 36.7 C (98 F) 09/10/2024 11:54 AM CDT Respiratory Rate 24 09/10/2024 1:48 PM CDT Oxygen Saturation 95% 09/10/2024 1:48 PM CDT Inhaled Oxygen Concentration - - Weight 101.2 kg (223 lb) 09/10/2024 11:54 AM CDT Height 162.6 cm (5' 4 ) 09/10/2024 11:54 AM CDT Body Mass Index 38.28 09/10/2024 11:54 AM CDT documented in this encounter Discharge Instructions * Discharge Instructions* Don Causey DO - 09/10/2024 1:44 PM CDT Rest. Avoid the outside heat. Follow up with Dr. Wade on Thursday for recheck. Return to the [facility] if any problems or worsening condition. documented in this encounter Medications at Time of Discharge ipratropium-albut Lisa (DUONEB) 0.5 mg-3 mg(2.5 mg base)/3 mL Solution for Nebulization Take 3 mL by inhalation every 4 hours as needed for Shortness of Breath. 300 mL 1 09/10/2024 Nebulizer & Compressor For Neb Device every 4 hours as needed for Other (See Comment) (shortness of breath). 1 Each 09/10/2024 ipratropium-albut Lisa (DUONEB) 0.5 mg-3 mg(2.5 mg [...] gauge x 1/2 Needle USE directed with Josie. 12/29/2022 naloxone (NARCAN) 4 mg/spray [place], Non-Aerosol EMERGENCY USE ONLY: Administer 1 spray (4 mg) in one nostril one time. May repeat in alternating nostrils every 2-3 min until responsive or EMS arrives. 2 Each 3 01/06/2023 blood sugar diagnostic StripIndications: Type 2 diabetes mellitus without complication, without long-term current use of insulin (CMS/HCC) Use to test blood glucose up to QID PRN symptoms. 100 Each 11 12/17/2022 OneTouch Delica Plus Lancet 30 gauge USE TO test fasting blood glucose DAILY 11/04/2022 Blood-Glucose Meter KitIndications:Ty pe 2 diabetes mellitus without complication, without long-term current use of insulin (CMS/HCC) Use to test blood glucose up to TID PRN symptoms. 1 Each 12/02/2022 predniSONE (DELTASONE) 20 mg tablet Take 1 Tablet (20 mg) by mouth 2 times daily with meals. 10 Tablet 09/10/2024 5 azithromycin (ZITHROMAX) 250 mg tablet Take 2 Tablets (500 mg) by mouth daily for 1 day, THEN 1 Tablet (250 mg) daily for 4 days. 6 Tablet 09/10/2024 5 predniSONE (DELTASONE) 20 mg tablet Take 2 Tablets (40 mg) by mouth daily with breakfast for 3 days, THEN 1.5 Tablets (30 mg) daily with breakfast for 3 days, THEN 1 Tablet (20 mg) daily with breakfast for 3 days, THEN 0.5 Tablets (10 mg) daily with breakfast for 3 days. 15 Tablet 08/30/2024 5 sertraline (ZOLOFT) 50 mg tablet Take 1 Tablet by mouth daily. 01/03/2024 5 rOPINIRole (REQUIP) 0.5 mg tablet Take 0.5 mg by mouth daily at bedtime. 12/14/2023 5 documented as of this encounter Progress Notes * Lou Pavon RN - 09/10/2024 1:53 PM CDT Le Barnhart will be discharged via wheelchair to home. Le Barnhart is accompanied by spouse and will be transported via private vehicle. * Marium Don Jahaira, DO - 09/10/2024 1:48 PM CDT HISTORY OF PRESENT ILLNESS 59 y/o female presents with SOB. Chronically SOB with both COPD and CHF. Went to ED twice yesterday. Eloped on second visit. Ran out of oxygen on the way here today so more SOB than normal upon arrival here. Denies fever or CP. REVIEW OF SYSTEMS Review of Systems Constitutional: Negative for chills and fever. HENT: Negative for congestion, ear pain and sore throat. Eyes: Negative for pain and redness. Respiratory: Positive for cough and shortness of breath. Negative for chest tightness. Cardiovascular: Negative for chest pain and palpitations. Gastrointestinal: Negative for abdominal pain, diarrhea and vomiting. Endocrine: Negative for polydipsia and polyphagia. Genitourinary: Negative for dysuria, frequency and hematuria. Musculoskeletal: Negative for back pain and myalgias. Skin: Negative for pallor and rash. Allergic/Immunologic: Negative for immunocompromised state. Neurological: Negative for syncope, numbness and headaches. Hematological: Negative for adenopathy. Does not bruise/bleed easily. Psychiatric/Behavioral: Negative for confusion. The patient is not nervous/anxious. All other systems reviewed and are negative. Objective PHYSICAL EXAM BP (!) 140/72 (BP Location: Right arm, Patient Position (BP): Sitting) Pulse 91 Temp 98 ??F (36.7 ??C) (Oral) Resp 26 Ht 5' 4 (1.626 m) Wt 101.2 kg (223 lb) SpO2 98% BMI 38.28 kg/m?? Physical Exam Vitals and nursing note reviewed. Constitutional: General: She is not in acute distress. Appearance: She is ill-appearing (chronically). HENT: Head: Normocephalic and atraumatic. Eyes: Conjunctiva/sclera: Conjunctivae normal. Pupils: Pupils are equal, round, and reactive to light. Cardiovascular: Rate and Rhythm: Normal rate and regular rhythm. Heart sounds: Normal heart sounds. Pulmonary: Effort: Pulmonary effort is normal. No respiratory distress. Breath sounds: Examination of the right-upper field reveals decreased breath sounds. Examination ofthe left-upper field reveals decreased breath sounds. Examination of the right-middle field revealsdecreased breath sounds and wheezing. Examination of the left-middle field reveals decreased breathsounds and wheezing. Examination of the right-lower field reveals decreased breath sounds and wheezing. Examination of the left-lower field reveals decreased breath sounds and wheezing. Decreased breath sounds and wheezing present. Abdominal: General: Bowel sounds are normal. There is no distension. Palpations: Abdomen is soft. Tenderness: There is no abdominal tenderness. Musculoskeletal: General: No tenderness. Normal range of motion. Cervical back: Normal range of motion and neck supple. Lymphadenopathy: Cervical: No cervical adenopathy. Skin: General: Skin is warm and dry. Findings: No erythema or rash. Neurological: Mental Status: She is alert and oriented to person, place, and time. GCS: GCS eye subscore is 4. GCS verbal subscore is 5. GCS motor subscore is 6. Psychiatric: Behavior: Behavior normal. Procedures Assessment MDM: Labs: No results found for this visit on 09/10/24 (from the past 24 hours). Imaging: Medical Decision Making: Imaging, EKG, and labs (if done) are noted above. Additional HPI and sources of history are noted in HPI. Review and/or summarization of old records were used, and are summarized below: Hx of COPD, CHF, DM, bipolar, chronic resp failure, CAD Plan: CXR, duoneb, IM solumedrol. Results of tests: CXR shows no infiltrate or effusion Visit course: Pt presents with increased work of breathing. Was in ED twice yesterday, refuses to go back to ED or hospital at this time. Pt given duoneb and IM solumedrol with improvement. Pt requests discharge home. Will Rx for nebulizer with duoneb, prednisone and zpak. PCP follow up in 2-3 days. Reevaluation: 1420--Patient resting comfortably. Results reviewed and plan discussed. All questions answered. Pt feeling better. Case Discussed: ASSESSMENT and PLAN: ICD-10-CM ICD-9-CM 1. COPD with exacerbation (CMS/[facility]) J44.1 491.21 documented in this encounter Plan of Treatment Upcoming Encounters Date Type Department Care Team (Late st Contact Info) Description 09/22/2024 10:00 AM CDT Office Visit [facility] Neurosurgery [address] [place] [address] Jerson Salas PA [address] [place] [address] 10/06/2024 4:00 PM CDT Office Visit [facility] Pulmonology [address] [place] [address] Cristian Metcalf FNP [address] [place] [address] documented as of this encounter Goals Goal Patient Goal Type Associated Problems Recent Progress Patient-Stated? Author Heart Failure Goal Care Plan Heart Failure Problem No Latonya Anguiano LPN documented as of this encounter Procedures Procedure Name Priority Date/Time Associated Diagnosis Comments XR CHEST PA AND LATERAL 2 VW Stat 09/10/2024 1:18 PM CDT documented in this encounter Results * XR CHEST PA AND LATERAL 2 VW (09/10/2024 1:18 PM CDT) Anatomical Region Laterality Modality Chest Computed Radiogr aphy 09/10/2024 1:18 PM CDT Impressions 09/10/2024 1:25 PM CDT IMPRESSION: No new acute radiographic findings or significant interval change. Narrative 09/10/2024 1:25 PM CDT EXAM: XR CHEST PA AND LATERAL 2 VW DATE/TIME OF EXAM: 09/10/2024 1:18 PM REASON FOR EXAM: Chest Pain DIAGNOSIS: Other chest pain COMPARISON: 09/09/2024 FINDINGS: - Lines/tubes: None. - Cardiomediastinal: Contours are within normal limits. - Lungs/pleura: Within the limitations of body habitus and low lung volumes, the lungs appear grossly clear. Probable minor chronic scarring in the left lung base. Hemidiaphragms are well visualized; no appreciable pleural effusion or pneumothorax. - Bones and soft tissues: No acute abnormalities. Fusion hardware in the cervical spine. - Additional comments: None. Procedure Note Curtis Nix MD - 09/10/2024 EXAM: XR CHEST PA AND LATERAL 2 VW DATE/TIME OF EXAM: 09/10/2024 1:18 PM REASON FOR EXAM: Chest Pain DIAGNOSIS: Other chest pain COMPARISON: 09/09/2024 FINDINGS: - Lines/tubes: None. - Cardiomediastinal: Contours are within normal limits. - Lungs/pleura: Within the limitations of body habitus and low lung volumes, the lungs appear grossly clear. Probable minor chronic scarring in the left lung base. Hemidiaphragms are well visualized; no appreciable pleural effusion or pneumothorax. - Bones and soft tissues: No acute abnormalities. Fusion hardware in the cervical spine. - Additional comments: None. IMPRESSION: No new acute radiographic findings or significant interval change. Don Causey DO DIAGNOSTIC IMAGING ORDERABLES F inal Result documented in this encounter Visit Diagnoses Diagnosis COPD with exacerbation ([facility])- Primary Obstructive chronic bronchitis with exacerbation documented in this encounter Administered Medications Inactive Administered Medications - up to 3 most recent administrations Medication Order MAR Action Action Date Dose Rate Site ipratropium-albuteroL (DUONEB) 0.5 mg-3 mg(2.5 mg base)/3 mL inhalation solution 3 mL 3 mL, Inhalation, ONE TIME ONLY RESPIRATORY, 1 dose, On 09/10/24 at 1245, Routine Given 09/10/2024 12:44 PM CDT 3 mL methylPREDNISolone sodium succinate (SOLU-Medrol) 125 mg in sterile water 2 mL injection 125 mg, IM, ONE TIME ONLY, 1 dose, On 09/10/24 at 1245, Routine Given 09/10/2024 12:44 PM CDT 125 mg Buttock, Left documented in this encounter Additional Health Concerns Active Problems Noted Date Diagnosed Date Heart Failure Problem 05/12/2024 documented as of this encounter Care Teams Zinc Etcher Relationship Specialty Start Date End Date Delta Wade MD [address] [address] PCP - General Family Practice 03/25/24 documented as of this encounter
--- OUTSIDE RECORDS SUMMARY | 2024-09-10 12:46 | XMS_ITS | Encounter Summary ---
Author Organization [facility] Address [address] [place] [address] Care Team Providers Care Boat Operator Name Role Phone Delta Wade MD Primary Care Provider [phone] Reason for Visit * Auth/Cert (Routine) Specialty Diagnoses / Procedures Referred By Marcelle smith Referred To Contact Emergency Medicine [facility] Emergency Department [address] [place] [phone] Phone: tel: fax: Referral ID Status Reason Start Date Expiration Date Visits Re quested Visits Authorized [id number] 1 1 Encounter Details Date Type Department Care Team (Latest Contact Info) Description 09/10/2024 12:46 PM CDT - 09/10/2024 11:59 PM CDT Hospital Encounter [facility] [address] [place] [phone] Don Causey DO [address] [place] [address] Discharge Disposition: Home or Self [...] 06/13/2019 How often do you attend chur ch or restoration services? 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 1 Each 08/27/2023 TechLITE Pen Needle 29 gauge x 1/2 Needle USE directed with Vicdenise. 12/29/2022 naloxone (NARCAN) 4 mg/spray [place], Non-Aerosol EMERGENCY USE ONLY: Administer 1 spray (4 mg) in one nostril one time. May repeat in alternating nostrils every 2-3 min until responsive or EMS arrives. 2 Each 3 01/06/2023 blood sugar diagnostic StripIndications: Type 2 diabetes mellitus without complication, without long-term current use of insulin ([facility]) Use to test blood glucose up to QID PRN symptoms. 100 Each 11 12/17/2022 OneTouch Delica Plus Lancet 30 gauge USE TO test fasting blood glucose DAILY 11/04/2022 Blood-Glucose Meter KitIndications:Ty pe 2 diabetes mellitus without complication, without long-term current use of insulin ([facility]) Use to test blood glucose up to [...] mg by mouth daily at bedtime. 12/14/2023 documented as of this encounter Plan of Treatment Upcoming Encounters Date Type Department Care Team (Late st Contact Info) Description 09/22/2024 10:00 AM CDT Office Visit [facility] Neurosurgery [address] [place] [address] [place] [address] Jerson Salas PA [address] [place] [address] 10/06/2024 4:00 PM CDT Office Visit [facility] Pulmonology [address] [place] [address] [place] [address] Cristian Metcalf FNP [address] [place] [address] documented as of this encounter [...] Result documented in this encounter Visit Diagnoses Not on filedocumented in this encounter Additional Health Concerns Active Problems Noted Date Diagnosed Date Heart Failure Problem 05/12/2024 documented as of this encounter Care Teams Boat Operator Relationship Specialty Start Date End Date Delta Wade MD [address] [place] [address] PCP - General Family Practice 03/25/24 documented as of this encounter
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
--- OUTSIDE RECORDS SUMMARY | 2024-09-12 21:13 | XMS_ITS | Encounter Summary ---
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 Cruz Montero DO at [facility] MAIN OR AK VITRECTOMY MCHNL PARS PLNA FOCAL ENDOLASER PC Right 03/30/2024 PARS PLANA VITRECTOMY WITH LASER performed by Eduardo Craven MD at [facility]-Administered Medications Prior to Admission Medication Dose Route [...] directed with Victoza. naloxone (NARCAN) 4 mg/spray [place]man, Non-Aerosol EMERGENCY USE ONLY: Administer 1 spray [...] given to MARICARMEN Gallardo on 4B * Letty Milner LPN - 09/12/2024 10:20 PM CDT Medication provided to pt at this time, refer to MAR. * Letty Milner LPN - 09/12/2024 9:35 PM CDT Pt presents with c/o SOB. Reports she went to use the restroom and get up when it began. Pt has a hx of COPD, heart failure, and respiratory failure. Reports she did 4 breathing tx [employer] with no improvement of symptoms. Pts breathing is labored upon arrival, O2 saturation 93%. [facility]. * Robbie Yen, - 09/12/2024 9:09 PM [...] Arthritis, Arthropathy, unspecified, site unspecified, Atrial flutter ([facility]), Bipolar affective disorder ([facility]), Breast cancer ([facility]) (2001), Breast mass (08/22/2010), Cervical neck pain with evidence of disc disease, Chronic hepatic failure ([facility]), Congenital absence of uterus, Congenital absence of vagina, Congenital anomaly, Congestive heart failure ([facility]), Coronary artery disease, Deep vein thrombosis (DVT) ([facility]) (2023), Depression (08/22/2010), Diabetes mellitus ([facility]) (2023), Difficult intravenous access, Dyspnea (08/15/2024), Dyspnea on exertion, Emphysema of lung (CMS/HCC), GERD (gastroesophageal reflux disease), H/O heart artery stent, H/O mastectomy, right, 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), Hereditary hemochromatosis, abnormal cervical Pap smear, Hyperlipidemia, Ischemic cardiomyopathy, Lower extremity edema, PA (myocardial infarction) (CMS/HCC) (2015), Neuropathy, NSTEMI (non-ST elevated myocardial infarction) (CMS/HCC) (06/06/2023), NSTEMI (non-ST elevated myocardial infarction) ([facility]/HCC), Paroxysmal A-fib ([facility]), Paroxysmal atrial tachycardia, Pneumonia due to COVID-19 virus, Polycythemia, Primary hereditary hemochromatosis (12/13/2010), Unspecified essential hypertension, and Vaginal cancer ([facility]) (2019). SURGICAL: Patient has a past surgical [...] Added Bipolar affective disorder, currently depressed, moderate ([facility]) [F31.32] Robbie Yen DO 09/12/2024 11:06 PM HEENA (generalized anxiety disorder) [F41.1] Robbie Yen DO 09/12/2024 11:06 PM Protein-calorie malnutrition, moderate [E44.0] Robbie Yen DO 09/12/2024 11:06 PM H/O mastectomy, right [Z90.11] Robbie Yen DO 09/12/2024 11:06 PM Chronic combined systolic and diastolic heart failure ([facility]/HCC) [I50.42] Robbie Yen DO 09/12/2024 11:06 PM COPD exacerbation ([facility]) [J44.1] Robbie Yen DO 09/12/2024 11:06 PM Opioid dependence with opioid-induced disorder ([facility]) [F11.29] Robbie Yen DO 09/12/2024 11:06 PM [...] Friend Prescription coverage: yes Preferred Pharmacy verified: [id number] - [place], [place] - [address] Insurance coverage verified: Payor: MEDICAID / Plan: [place]ICAID [place] / Product Type: Medicaid / Secondary Insurance:N/A [...] multiple medication modalities, including oxyCODONE- acetaminophen in [facility] and HYDROmorphone (PF). Infection Risk/Actual: [...] ID# (If using facility equipment): Vent ID: [id number] (09/13/241917) CPAP Daily Charge: *CPAP Daily Charge: [...] ID# (If using facility equipment): Vent ID: [id number] (09/13/241917) CPAP Daily Charge: *CPAP Daily Charge: [...] 12/29/22 Provider, Historical naloxone (NARCAN) 4 mg/spray Lowman, Non-Aerosol EMERGENCY USE ONLY: Administer 1 spray [...] Description 09/22/2024 10:00 AM CDT Office Visit [facility] Neurosurgery [address] [place] [address] Jerson Salas PA [address] [place] [address] 10/06/2024 4:00 PM CDT Office Visit [facility] Pulmonology [address] [place] [phone] Cristian Metcalf, [facility] [address] [place] [phone] Pending Results Name Type Priority Associated Diagnoses Date /Time BLOOD CULTURE Microbiology Routine 5 12:55 PM CDT BLOOD CULTURE Microbiology Routine 5 2:15 PM CDT BLOOD CULTURE Microbiology Routine 5 12:55 PM CDT BLOOD CULTURE Microbiology Routine 5 2:15 PM CDT Scheduled Orders Name Type Priority Associated Diagnoses Orde r Schedule BLOOD CULTURE Microbiology Routine ONE TIME for 1 Occurrences starting 09/13/2024 until 09/13/2024 BLOOD CULTURE Microbiology Routine ONE TIME for 1 Occurrences starting 09/13/2024 until 09/13/2024 MRI LUMBAR W WO CONTRAST Imaging Routine Closed fracture of first lumbar vertebra, unspecified fracture morphology, initial encounter ([facility]) Expected: 09/22/2024, Expires: 09/15/2025 IR SPINAL INTERVENTION Imaging Routine Closed fracture of first lumbar vertebra, unspecified fracture morphology, initial encounter ([facility]) Expected: 09/22/2024, Expires: 09/15/2025 documented as of [...] URINE CULTURE Routine 09/13/2024 1:12 PM CDT LACTIC ACID Stat 09/13/2024 12:55 [...] 2.2(H) <=2.0 mmol/L 09/15/2024 8:42 AM CDT [facility] Blood Venipuncture / Unknown 09/15/2024 8:00 AM CDT 09/15/2024 8:03 AM CDT Michael Tovar MD CHEMISTRY ORDERABLES Final Result [facility] CLIA # [id number] [address] [place] [address] * (ABNORMAL) COMPREHENSIVE METABOLIC PANEL (09/15/2024 8:00 AM CDT) SODIUM 138 136 - 145 mmol/L 09/15/2024 10:22 AM CDT [facility] POTASSIUM 4.4 3.5 - 5.1 mmol/L 09/15/2024 10:22 AM CDT [facility] CHLORIDE 101 98 - 107 mmol/L 09/15/2024 10:22 AM CDT [facility] CO2 20(L) 22 - 29 mmol/L 09/15/2024 10:22 AM CDT [facility] CALCIUM 8.9 8.6 - 10.0 mg/dL 09/15/2024 10:[facility] B[facility] 18 6 - 20 mg/dL 09/15/2024 10:22 AM [facility] CREATININE 0.51 0.51 - 0.95 mg/dL 09/15/2024 10:22 AM [facility] GLUCOSE 238(H) 74 - 99 mg/dL 09/15/2024 10:22 AM [facility] TOTAL PROTEIN 6.2(L) 6.4 - 8.3 g/dL 09/15/2024 10:22 AM [facility] ALBUMIN 3.4(L) 3.5 - 5.2 g/dL 09/15/2024 10:22 AM [facility] BILIRUBIN TOTAL 0.3 0.0 - 1.0 mg/dL 09/15/2024 10:22 AM [facility] ALKALINE PHOSPHATASE 102 35 - 104 U/L 09/15/2024 10:22 AM [facility] AST 17 10 - 35 U/L 09/15/2024 10:22 AM [facility] Comment:Hemolysis present. R esult may be falsely elevated. ALT 39(H) <=35 U/L 09/15/2024 10:22 AM [facility] GFR >60 >=60 mL/min/1.7 3 sq meter 09/15/2024 10:22 AM [facility] Comment:eGFR calculated with 2020 CKD-EPI equation. Vegetarian diet, extremely high or low muscle mass, and may affect results. Cystatin C with Glomerular Filtration Rate is a suitable alternative for these patients. ANION GAP 17 9 - 20 mmol/L 09/15/2024 10:22 AM [facility] Blood Venipuncture / Unknown 09/15/2024 8:00 AM CDT 09/15/2024 8:[address] [facility] us Michael Tovar MD CHEMISTRY ORDERABLES Final Result [facility] CLIA # [id number] [facility] [id number] * PROTIME-INR (09/15/2024 8:00 AM CDT) [facility] 13.8 12.7 - 14.9 Seconds 09/15/2024 8:42 AM CDT [facility] INR 1.0 0.8 - 1.2 09/15/2024 8:42 AM CDT [facility] Blood Venipuncture / Unknown 09/15/2024 8:00 AM CDT 09/15/2024 8:03 AM CDT [facility] - 09/15/2024 8:42 AM CDT Expected Values for INR: DVT/PE Goal INR 2.5; range 2.0 - 3.0 Valve Replacement Tissue Goal INR 2.5; range 2.0 - 3.0 Valve Replacement Mechanical Goal INR 3.0; range 2.5 - 3.5 POST-PA Goal INR 2.5; range 2.0 - 3.0 or Goal INR 3.0; range 2.5 - 3.5 Atrial Fibrillation Goal INR 2.5; range 2.0 - 3.0 Ischemic Stroke Goal INR 2.5; range 2.0 - 3.0 Michael Tovar MD HEMATOLOGY ORDERABLES Final Result [facility] CLIA # [id number] [address] [place] [address] * (ABNORMAL) POC GLUCOSE (09/15/2024 7:26 AM CDT) [facility] GLUCOSE POC 202(H) 74 - 99 mg/dL 09/15/2024 7:26 AM CDT [facility] SPECIMEN SOURCE, GLUCOSE POC Capillary 09/15/2024 7:26 AM CDT [facility] Blood, whole 09/15/2024 7:26 AM CDT 09/15/2024 7:42 AM CDT Michael Tovar MD POINT OF CARE TESTING Final Result Performing Organization Address [facility]/ZIP Co de Phone Number [facility] CLIA # [id number] [address] [id number] * (ABNORMAL) POC GLUCOSE (09/14/2024 8:55 PM CDT) GLUCOSE POC 346(H) 74 - 99 mg/dL 09/14/2024 8:55 PM CDT [facility] SPECIMEN SOURCE, GLUCOSE POC Capillary 09/14/2024 8:55 PM CDT [facility] COMMENT, GLU POC Notified Caregiver 09/14/2024 8:55 PM CDT [facility] COMMENT 2, GLU POC Result Verified 09/14/2024 8:55 PM CDT [facility] Blood, whole 09/14/2024 8:55 PM CDT 09/14/2024 11:53 PM CDT Michael Tovar MD POINT OF CARE TESTING Final Result Performing Organization Address City/[facility] Co de Phone Number [facility] CLIA # [id number] [facility] [address] * (ABNORMAL) LACTIC ACID (09/14/2024 5:41 PM CDT) LACTIC ACID 4.7(HH) <=2.0 mmol/L 09/14/2024 6:38 PM CDT [facility] Blood Venipuncture / Unknown 09/14/2024 5:41 PM CDT 09/14/2024 5:47 PM CDT us Michael Tovar MD CHEMISTRY ORDERABLES Final Result Performing Organization Address [facility]/ZIP Co de Phone Number [facility] CLIA # [id number] [address] [address] * (ABNORMAL) POC GLUCOSE (09/14/2024 4:29 PM CDT) GLUCOSE POC 411(HH) 74 - 99 mg/dL 09/14/2024 4:29 PM CDT [facility] SPECIMEN SOURCE, GLUCOSE POC Capillary 09/14/2024 4:29 PM CDT [facility] Blood, whole 09/14/2024 4:29 PM CDT 09/14/2024 5:29 PM CDT Michael Tovar MD POINT OF CARE TESTING Final Result Performing Organization Address [facility] Co de Phone Number [facility] CLIA # [id number] [address] [address] * (ABNORMAL) COMPREHENSIVE METABOLIC PANEL (09/14/2024 12:08 PM CDT) SODIUM 140 136 - 145 mmol/L 09/14/2024 12:51 PM CDT [facility] POTASSIUM 3.8 3.5 - 5.1 mmol/L 09/14/2024 12:51 PM CDT [facility] CHLORIDE 97(L) 98 - 107 mmol/L 09/14/2024 12:51 PM CDT [facility] CO2 29 22 - 29 mmol/L 09/14/2024 12:51 PM CDT [facility] CALCIUM 9.2 8.6 - 10.0 mg/dL 09/14/2024 12:51 PM CDT [facility] BUN 21(H) 6 - 20 mg/dL 09/14/2024 12:51 PM CDT [facility] CREATININE 0.65 0.51 - 0.95 mg/dL 09/14/2024 12:51 PM T [facility] GLUCOSE 349(H) 74 - 99 mg/dL 09/14/2024 12:51 PM [facility] TOTAL PROTEIN 6.3(L) 6.4 - 8.3 g/dL 09/14/2024 12:51 PM [facility] ALBUMIN 3.6 3.5 - 5.2 g/dL 09/14/2024 12:51 PM [facility] BILIRUBIN TOTAL 0.3 0.0 - 1.0 mg/dL 09/14/2024 12:51 PM [facility] ALKALINE PHOSPHATASE 103 35 - 104 U/L 09/14/2024 12:51 PM [facility] AST 22 10 - 35 U/L 09/14/2024 12:51 PM [facility] Comment:Hemolysis present. R esult may be falsely elevated. ALT 44(H) <=35 U/L 09/14/2024 12:51 PM [facility] GFR >60 >=60 mL/min/1.7 3 sq meter 09/14/2024 12:51 PM [facility] Comment:eGFR calculated with 2020 CKD-EPI equation. Vegetarian diet, extremely high or low muscle mass, and may affect results. Cystatin C with Glomerular Filtration Rate is a suitable alternative for these patients. ANION GAP 14 9 - 20 mmol/L 09/14/2024 12:51 PM [facility] Blood Venipuncture / Unknown 09/14/2024 12:08 PM CDT 09/14/2024 12:13 PM CDT us Michael Tovar MD CHEMISTRY ORDERABLES Final Result [facility] CLIA # [id number] [address] [address] [place] [address] * (ABNORMAL) CBC WITH DIFFERENTIAL (09/14/2024 12:08 PM CDT) [facility] WBC 10.9(H) 4.8 - 10.8 K/uL 09/14/2024 12:24 PM CDT [facility] NRBCS 5(H) <1 % 09/14/2024 12:24 PM T [facility] RBC 3.47(L) 4.20 - 5.40 M/uL 09/14/2024 12:24 PM CDT [facility] HEMOGLOBIN 10.8(L) 12.0 - 16.0 g/dL 09/14/2024 12:24 PM [facility] HEMATOCRIT 35.2(L) 36.0 - 46.0 % 09/14/2024 12:24 PM CDT [facility] MCV 101.4 84.0 - 103.0 fL 09/14/2024 12:24 PM CDT [facility] MCH 31.1 27.0 - 34.0 pg 09/14/2024 12:24 PM T [facility] MCHC 30.7 30.0 - 35.0 g/dL 09/14/2024 12:24 PM T [facility] PLATELETS 172 140 - 440 K/uL 09/14/2024 12:24 PM [facility] MPV 11.2 8.9 - 12.8 fL 09/14/2024 12:24 PM T [facility] RDW 18.9(H) 11.0 - 14.5 % 09/14/2024 12:24 PM [facility] RDW-STDEV 69.1(H) 37.0 - 54.0 fL 09/14/2024 12:24 PM [facility] NEUTROPHILS 88(H) 42 - 75 % 09/14/2024 12:24 PM CDT [facility] LYMPHOCYTES 7(L) 24 - 44 % 09/14/2024 12:24 PM CDT [facility] MONOCYTES 4 2 - 10 % 09/14/2024 12:24 PM CDT [facility] EOSINOPHILS 0 0 - 7 % 09/14/2024 12:24 PM CDT [facility] BASOPHILS 0 0 - 1 % 09/14/2024 12:24 PM CDT [facility] IMMATURE GRANULOCYTES 2 0 - 2 % 09/14/2024 12:24 PM CDT [facility] NEUTROPHIL ABSOLUTE 9.62(H) 2.00 - 8.00 K/uL 09/14/2024 12:24 PM CDT [facility] LYMPHOCYTE ABSOLUTE 0.71(L) 1.20 - 4.00 K/uL 09/14/2024 12:24 PM CDT [facility] MONOCYTE ABSOLUTE 0.38 0.10 - 0.60 K/uL 09/14/2024 12:24 PM CDT [facility] EOSINOPHIL ABSOLUTE 0.02 0.00 - 0.70 K/uL 09/14/2024 12:24 PM CDT [facility] BASOPHILS ABSOLUTE 0.02 0.00 - 0.20 K/uL 09/14/2024 12:24 PM CDT [facility] IMMATURE GRANULOCYTES ABSOLUTE 0.19(H) 0.00 - 0.10 K/uL 09/14/2024 12:24 PM CDT [facility] SMEAR REVIEWED: NN - No Action Needed 09/14/2024 12:24 PM CDT [facility] Blood Venipuncture / Unknown 09/14/2024 12:08 PM CDT 09/14/2024 12:13 PM CDT us Michael Tovar MD HEMATOLOGY ORDERABLES Final Result [facility] CLIA # [id number] [facility] [address] [place] [address] * (ABNORMAL) POC GLUCOSE (09/14/2024 11:25 AM CDT) GLUCOSE POC 386(H) 74 - 99 mg/dL 09/14/2024 11:25 AM CDT [facility] SPECIMEN SOURCE, GLUCOSE POC Capillary 09/14/2024 11:25 AM CDT [facility] Blood, whole 09/14/2024 11:2 5 AM CDT 09/14/2024 11:38 AM CDT Michael Tovar MD POINT OF CARE TESTING Final Result Performing Organization Address City/[facility]/ZIP Co de Phone Number [facility] CLIA # [id number] [address] [id number] * (ABNORMAL) POC GLUCOSE (09/14/2024 7:43 AM CDT) GLUCOSE POC 165(H) 74 - 99 mg/dL 09/14/2024 7:43 AM CDT [facility] SPECIMEN SOURCE, GLUCOSE POC Capillary 09/14/2024 7:43 AM CDT [facility] Blood, whole 09/14/2024 7:43 AM CDT 09/14/2024 8:02 AM CDT Michael Tovar MD POINT OF CARE TESTING Final Result Performing Organization Address City/[facility]/ZIP Co de Phone Number [facility] CLIA # [id number] [address] [address] * (ABNORMAL) BLOOD GAS ARTERIAL (09/13/2024 8:22 PM CDT) PH BLOOD POC 7.40 7.35 - 7.45 09/13/2024 8:22 PM CDT [facility] PCO2 POC 54(H) 35 - 45 mm Hg 09/13/2024 8:22 PM CDT [facility] PO2 POC 44(L) 80 - 105 mm Hg 09/13/2024 8:22 PM [facility] HCO3 (CALC) POC 33(H) 22 - 26 mmol/L 09/13/2024 8:22 PM [facility] HEMOGLOBIN POC 10.8(L) 12.0 - 18.0 g/dL 09/13/2024 8:22 PM [facility] BASE EXCESS POC 9(H) -2 - 3 mmol/L 09/13/2024 8:22 PM [facility] O2 SATURATION POC 78(L) 95 - 98 % 09/13/2024 8:22 PM [facility] SODIUM POC 136(L) 138 - 146 mmol/L 09/13/2024 8:22 PM [facility] POTASSIUM POC 4.2 3.5 - 4.9 mmol/L 09/13/2024 8:22 PM [facility] HEMATOCRIT POC 32(L) 38 - 51 % 09/13/2024 8:22 PM [facility] PH TEMP CORRECT 7.40 7.35 - 7.45 09/13/2024 8:22 PM [facility] PCO2 TEMP CORRECT 54(H) 35 - 45 mm Hg 09/13/2024 8:22 PM [facility] PO2 TEMP CORRECT 44(L) 80 - 105 mm Hg 09/13/2024 8:22 PM [facility] SPECIMEN SOURCE, GASES POC Arterial 09/13/2024 8:22 PM [facility] CALCIUM IONIZED POC 5.1 4.8 - 5.2 mg/dL 09/13/2024 8:22 PM [facility] TCO2 (CALC) POC 35(H) 23 - 27 mmol/L 09/13/2024 8:22 PM [facility] LITER FLOW 3.0 L/min 09/13/2024 8:22 PM [facility] PUN SITE POC ART PUNCT 09/13/2024 8:22 PM [facility] SOURCE OF OXYGEN POC Cannula 09/13/2024 8:22 PM CDT [facility] Blood, arterial 09/13/2024 8 :22 PM CDT 09/13/2024 8:24 PM CDT us Peña Mata MD ABG ORDERABLES Final Re sult [facility] CLIA # [id number] [address] [id number] [facility] [address] * XR THORACOLUMBAR SPINE 2 VW (09/13/2024 [...] - 99 mg/dL 09/13/2024 7:35 PM CDT [facility] SPECIMEN SOURCE, GLUCOSE POC Capillary 09/13/2024 7:35 PM CDT [facility] COMMENT, GLU POC Notified Caregiver 09/13/2024 7:35 PM CDT [facility] COMMENT 2, GLU POC Result Verified 09/13/2024 7:35 PM CDT [facility] Blood, whole 09/13/2024 7:35 PM CDT 09/13/2024 8:44 PM CDT Peña Mata MD POINT OF CARE TESTING Fi nal Result [facility] CLIA # [id number] [address] [address] * (ABNORMAL) POC GLUCOSE (09/13/2024 5:19 PM CDT) GLUCOSE POC 371(H) 74 - 99 mg/dL 09/13/2024 5:19 PM CDT [facility] SPECIMEN SOURCE, GLUCOSE POC Capillary 09/13/2024 5:19 PM CDT [facility] COMMENT, GLU POC Result Verified 09/13/2024 5:19 PM CDT [facility] Blood, whole 09/13/2024 5:19 PM CDT 09/13/2024 5:34 PM CDT Peña Mata MD POINT OF CARE TESTING Fi nal Result [facility] CLIA # [id number] [address] [place] [address] * (ABNORMAL) POC LACTIC ACID (09/13/2024 2:52 PM CDT) [facility] LACTIC ACID POC 3.2(H) <=2.0 mmol/L 09/13/2024 2:52 PM CDT [facility] SPECIMEN SOURCE, GASES POC Arterial 09/13/2024 2:52 PM CDT [facility] PUNC SITE POC ART PUNCT 09/13/2024 2:52 PM CDT [facility] Blood 09/13/2024 2:52 PM CDT 09/13/2024 2:55 PM CDT Narrative [facility] - 09/13/2024 2:52 PM CDT References ranges displayed are for Arterial samples. Peña Margot Mata MD POINT OF CARE TESTING nal Result [facility] CLIA # [id number] [address] [place] [address] * (ABNORMAL) BLOOD GAS ARTERIAL (09/13/2024 2:52 PM CDT) [facility] PH BLOOD POC 7.37 7.35 - 7.45 09/13/2024 2:52 PM CDT [facility] PCO2 POC 57(H) 35 - 45 mm Hg 09/13/2024 2:52 PM CDT [facility] PO2 POC 67(L) 80 - 105 mm Hg 09/13/2024 2:52 PM CDT [facility] HCO3 (CALC) POC 33(H) 22 - 26 mmol/L 09/13/2024 2:52 PM CDT [facility] HEMOGLOBIN POC 11.2(L) 12.0 - 18.0 g/dL 09/13/2024 2:52 PM CDT [facility] BASE EXCESS POC 8(H) -2 - 3 mmol/L 09/13/2024 2:52 PM T [facility] O2 SATURATION POC 95 95 - 98 % 09/13/2024 2:52 PM [facility] SODIUM POC 133(L) 138 - 146 mmol/L 09/13/2024 2:52 PM [facility] POTASSIUM POC 4.2 3.5 - 4.9 mmol/L 09/13/2024 2:52 PM T [facility] HEMATOCRIT POC 34(L) 38 - 51 % 09/13/2024 2:52 PM [facility] PH TEMP CORRECT 7.37 7.35 - 7.45 09/13/2024 2:52 PM [facility] PCO2 TEMP CORRECT 57(H) 35 - 45 mm Hg 09/13/2024 2:52 PM [facility] PO2 TEMP CORRECT 67(L) 80 - 105 mm Hg 09/13/2024 2:52 PM T [facility] SPECIMEN SOURCE, GASES POC Arterial 09/13/2024 2:52 PM [facility] CALCIUM IONIZED POC 5.0 4.8 - 5.2 mg/dL 09/13/2024 2:52 PM T [facility] TCO2 (CALC) POC 35(H) 23 - 27 mmol/L 09/13/2024 2:52 PM [facility] LITER FLOW 3.0 L/min 09/13/2024 2:52 PM [facility] PUNC SITE POC ART PUNCT 09/13/2024 2:52 PM [facility] SOURCE OF OXYGEN POC Cannula 09/13/2024 2:52 PM [facility] Blood, arterial 09/13/2024 2 :52 PM CDT 09/13/2024 2:55 PM CDT Peña Mata MD ABG ORDERABLES Final Re sult [id number] [address] [address] [place] [address] * US ABDOMEN LIMITED (09/13/2024 1:27 PM [...] and/or colonizing bacteria 09/14/2024 11:22 AM CDT [facility] Urine URINE SPECIMEN OBTAINED BY CLEAN CATCH PROCEDURE / Unknown Collection / Unknown 09/13/2024 1:12 PM CDT 09/13/2024 1:20 PM CDT Peña Mata MD MICROBIOLOGY - GENERAL O RDERABLES Final Result Performing Organization Address City/[facility] Co de Phone Number [facility] CLIA # [id number] [id number] [place] [address] * EXTRA TUBE (URINE [place]) (09/13/2024 1:12 PM CDT) Urine URINE SPECIMEN OBTAINED BY CLEAN CATCH PROCEDURE / Unknown Collection / Unknown 09/13/2024 1:12 PM CDT 09/13/2024 1:20 PM CDT Peña Mata MD URINE ORDERABLES Final R esult Performing Organization Address City/[facility] Co de Phone Number [facility] [employer] [facility] CLIA # [id number] [address] [place] [address] * (ABNORMAL) URINALYSIS WITH REFLEX MICROSCOPIC (09/13/2024 1:12 PM CDT) COLOR UA Colorless(A ) Pale to Dark Yellow 09/13/2024 1:29 PM T [facility] CLARITY UA Clear Clear 09/13/2024 1:29 PM T [facility] SPECIFIC GRAVITY UA 1.012 1.003 - 1.035 09/13/2024 1:29 PM [facility] PH UA 5.5 5.0 - 8.0 09/13/2024 1:29 PM T [facility] LEUKOCYTE ESTERASE UA 2+(A) Negative 09/13/2024 1:29 PM [facility] NITRITE UA Negative Negative 09/13/2024 1:29 PM [facility] PROTEIN UA Negative Negative 09/13/2024 1:29 PM [facility] GLUCOSE UA 2+(A) Negative 09/13/2024 1:29 PM [facility] KETONES UA Negative Negative 09/13/2024 1:29 PM [facility] UROBILINOGEN UA <2.0 <2.0 mg/dL 1:29 PM [facility] BILIRUBIN UA Negative Negative 09/13/2024 1:29 PM [facility] BLOOD UA Negative Negative 09/13/2024 1:29 PM [facility] WBC UA 0-2 0 - 2 /hpf 09/13/2024 1:29 PM [facility] RBC UA 0-2 0 - 2 /hpf 09/13/2024 1:29 PM [facility] BACTERIA UA 2+(A) Negative /hpf 09/13/2024 1:29 PM [facility] EPITHELIAL CELLS, URINE 0-5 0 - 5 /hpf 09/13/2024 1:29 PM [facility] HYALINE CAST 0-2 None Seen, 0-2 /lpf 09/13/2024 1:29 PM CDT [facility] Urine URINE SPECIMEN OBTAINED BY CLEAN CATCH PROCEDURE / Unknown Collection / Unknown 09/13/2024 1:12 PM CDT 09/13/2024 1:20 PM CDT Peña Mata MD URINE ORDERABLES Final R esult Performing Organization Address [facility] Co de Phone Number [facility] CLIA # [id number] [address] [address] * (ABNORMAL) LACTIC ACID (09/13/2024 12:55 PM CDT) LACTIC ACID 2.2(H) <=2.0 mmol/L 09/13/2024 1:34 PM CDT [facility] Blood Venipuncture / Unknown 09/13/2024 12:55 PM CDT 09/13/2024 1:00 PM CDT Peña Mata MD CHEMISTRY ORDERABLES Fin al Result Performing Organization Address [facility] de Phone Number [facility] CLIA # [id number] [address] [address] * (ABNORMAL) POC GLUCOSE (09/13/2024 12:23 PM CDT) GLUCOSE POC 229(H) 74 - 99 mg/dL 09/13/2024 12:23 PM CDT [facility] SPECIMEN SOURCE, GLUCOSE POC Capillary 09/13/2024 12:23 PM CDT [facility] Blood, whole 09/13/2024 12:2 3 PM CDT 09/13/2024 2:10 PM CDT Peña Mata MD POINT OF CARE TESTING Fi nal Result [facility] CLIA # [id number] [facility] [address] [place] [address] * (ABNORMAL) BLOOD GAS VENOUS (09/13/2024 11:47 AM CDT) [facility] PH BLOOD POC 7.31(L) 7.32 - 7.43 09/13/2024 11:47 AM T [facility] PCO2 POC 64(H) 38 - 50 mm Hg 09/13/2024 11:47 AM T [facility] PO2 POC 66(H) 25 - 40 mm Hg 09/13/2024 11:47 AM [facility] HCO3 (CALC) POC 32(H) 22 - 29 mmol/L 09/13/2024 11:47 AM T [facility] HEMOGLOBIN POC 10.7(L) 12.0 - 18.0 g/dL 09/13/2024 11:47 AM T [facility] BASE EXCESS POC 6(H) -2 - 3 mmol/L 09/13/2024 11:47 AM [facility] O2 SATURATION POC 94(H) 40 - 70 % 09/13/2024 11:47 AM T [facility] SODIUM POC 136 135 - 145 mmol/L 09/13/2024 11:47 AM [facility] POTASSIUM POC 4.3 3.5 - 4.9 mmol/L 09/13/2024 11:47 AM T [facility] HEMATOCRIT POC 32(L) 38 - 51 % 09/13/2024 11:47 AM T [facility] PH TEMP CORRECT 7.31(L) 7.32 - 7.43 09/13/2024 11:47 AM [facility] PCO2 TEMP CORRECT 64(H) 38 - 50 mm Hg 09/13/2024 11:47 AM T [facility] PO2 TEMP CORRECT 66(H) 25 - 40 mm Hg 09/13/2024 11:47 AM CDT [facility] SPECIMEN SOURCE, GASES POC Venous 09/13/2024 11:47 AM CDT [facility] CALCIUM IONIZED POC 5.3(H) 4.8 - 5.2 mg/dL 09/13/2024 11:47 AM CDT [facility] TCO2 (CALC) POC 34(H) 22 - 26 mmol/L 09/13/2024 11:47 AM CDT [facility] PUNC SITE POC No Charge 09/13/2024 11:47 AM CDT [facility] Blood, venous 09/13/2024 11: 47 AM CDT 09/13/2024 11:49 AM CDT [facility] Margot Mata MD ABG ORDERABLES Final Re sult [facility] CLIA # [id number] [address] [place] [address] * PROTIME-INR (09/13/2024 9:16 AM CDT) PROTIME 13.8 12.7 - 14.9 Seconds 09/13/2024 9:40 AM CDT [facility] INR 1.0 0.8 - 1.2 09/13/2024 9:40 AM CDT [facility] Blood Venipuncture / Unknown 09/13/2024 9:16 AM CDT 09/13/2024 9:24 AM CDT Narrative [facility] - 09/13/2024 9:40 AM CDT Expected Values for INR: DVT/PE Goal INR 2.5; range 2.0 - 3.0 Valve Replacement Tissue Goal INR 2.5; range 2.0 - 3.0 Valve Replacement Mechanical Goal INR 3.0; range 2.5 - 3.5 POST-PA Goal INR 2.5; range 2.0 - 3.0 or Goal INR 3.0; range 2.5 - 3.5 Atrial Fibrillation Goal INR 2.5; range 2.0 - 3.0 Ischemic Stroke Goal INR 2.5; range 2.0 - 3.0 Peña Mata MD HEMATOLOGY ORDERABLES Fi nal Result [facility] # [id number] [address] [place] [address] [place] [address] * (ABNORMAL) BLOOD GAS VENOUS (09/13/2024 9:16 AM CDT) PH BLOOD POC 7.28(L) 7.32 - 7.43 09/13/2024 9:16 AM T [facility] PCO2 POC 65(H) 38 - 50 mm Hg 09/13/2024 9:16 AM T [facility] PO2 POC 62(H) 25 - 40 mm Hg 09/13/2024 9:16 AM [facility] HCO3 (CALC) POC 31(H) 22 - 29 mmol/L 09/13/2024 9:16 AM [facility] HEMOGLOBIN POC 11.3(L) 12.0 - 18.0 g/dL 09/13/2024 9:16 AM [facility] BASE EXCESS POC 4(H) -2 - 3 mmol/L 09/13/2024 9:16 AM [facility] O2 SATURATION POC 91(H) 40 - 70 % 09/13/2024 9:16 AM [facility] SODIUM POC 137 135 - 145 mmol/L 09/13/2024 9:16 AM [facility] POTASSIUM POC 4.6 3.5 - 4.9 mmol/L 09/13/2024 9:16 AM [facility] HEMATOCRIT POC 34(L) 38 - 51 % 09/13/2024 9:16 AM [facility] PH TEMP CORRECT 7.28(L) 7.32 - 7.43 09/13/2024 9:16 AM CDT [facility] PCO2 TEMP CORRECT 65(H) 38 - 50 mm Hg 09/13/2024 9:16 AM CDT [facility] PO2 TEMP CORRECT 62(H) 25 - 40 mm Hg 09/13/2024 9:16 AM CDT [facility] SPECIMEN SOURCE, GASES POC Venous 09/13/2024 9:16 AM CDT [facility] CALCIUM IONIZED POC 5.2 4.8 - 5.2 mg/dL 09/13/2024 9:16 AM CDT [facility] TCO2 (CALC) POC 33(H) 22 - 26 mmol/L 09/13/2024 9:16 AM CDT [facility] PUN SITE POC No Charge 09/13/2024 9:16 AM CDT [facility] Blood, venous 09/13/2024 9:1 6 AM CDT 09/13/2024 9:19 AM CDT Peña Margot Mata MD ABG ORDERABLES Final Re sult [facility] CLIA # [id number] [facility] [address] [place] [address] * (ABNORMAL) BASIC METABOLIC PANEL (09/13/2024 9:16 AM CDT) Pathologist [facility] SODIUM 139 136 - 145 mmol/L 09/13/2024 9:59 AM CDT [facility] POTASSIUM 4.5 3.5 - 5.1 mmol/L 09/13/2024 9:59 AM CDT [facility] CHLORIDE 102 98 - 107 mmol/L 09/13/2024 9:59 AM CDT [facility] CO2 25 22 - 29 mmol/L 09/13/2024 9:59 AM CDT [facility] CALCIUM 9.4 8.6 - 10.0 mg/dL 09/13/2024 9:59 AM CDT [facility] BUN 20 6 - 20 mg/dL 09/13/2024 9:59 AM CDT [facility] CREATININE 0.52 0.51 - 0.95 mg/dL 09/13/2024 9:59 AM CDT [facility] GLUCOSE 257(H) 74 - 99 mg/dL 09/13/2024 9:59 AM CDT [facility] GFR >60 >=60 mL/min/1.7 3 sq meter 09/13/2024 9:59 AM T [facility] Comment:eGFR calculated with 2020 CKD-EPI equation. Vegetarian diet, extremely high or low muscle mass, and may affect results. Cystatin C with Glomerular Filtration Rate is a suitable alternative for these patients. ANION GAP 12 9 - 20 mmol/L 09/13/2024 9:59 AM T [facility] Blood Venipuncture / Unknown 09/13/2024 9:16 AM CDT 09/13/2024 9:25 AM CDT Nba Baig MD CHEMISTRY ORDERABLES Fi nal Result [facility] CLIA # [id number] [address] [place] [address] * (ABNORMAL) CBC WITH DIFFERENTIAL (09/13/2024 9:16 AM CDT) WBC 11.9(H) 4.8 - 10.8 K/uL 09/13/2024 9:40 AM CDT [facility] NRBCS 7(H) <1 % 09/13/2024 9:40 AM CDT [facility] RBC 3.47(L) 4.20 - 5.40 M/uL 09/13/2024 9:40 AM CDT [facility] HEMOGLOBIN 10.9(L) 12.0 - 16.0 g/dL 09/13/2024 9:40 AM [facility] HEMATOCRIT 36.0 36.0 - 46.0 % 09/13/2024 9:40 AM [facility] MCV 103.7(H) 84.0 - 103.0 fL 09/13/2024 9:40 AM [facility] MCH 31.4 27.0 - 34.0 pg 09/13/2024 9:40 AM [facility] MCHC 30.3 30.0 - 35.0 g/dL 09/13/2024 9:40 AM [facility] PLATELETS 166 140 - 440 K/uL 09/13/2024 9:40 AM [facility] MPV 10.5 8.9 - 12.8 fL 09/13/2024 9:40 AM [facility] RDW 18.9(H) 11.0 - 14.5 % 09/13/2024 9:40 AM [facility] RDW-STDEV 72.3(H) 37.0 - 54.0 fL 09/13/2024 9:40 AM [facility] NEUTROPHILS 73 42 - 75 % 09/13/2024 9:40 AM [facility] LYMPHOCYTES 10(L) 24 - 44 % 09/13/2024 9:40 AM [facility] MONOCYTES 12(H) 2 - 10 % 09/13/2024 9:40 AM [facility] EOSINOPHILS 0 0 - 7 % 09/13/2024 9:40 AM [facility] BASOPHILS 1 0 - 1 % 09/13/2024 9:40 AM [facility] IMMATURE GRANULOCYTES 4(H) 0 - 2 % 09/13/2024 9:40 AM [facility] NEUTROPHIL ABSOLUTE 8.69(H) 2.00 - 8.00 K/uL 09/13/2024 9:40 AM [facility] LYMPHOCYTE ABSOLUTE 1.17(L) 1.20 - 4.00 K/uL 09/13/2024 9:40 AM CDT [facility] MONOCYTE ABSOLUTE 1.40(H) 0.10 - 0.60 K/uL 09/13/2024 9:40 AM CDT [facility] EOSINOPHIL ABSOLUTE 0.02 0.00 - 0.70 K/uL 09/13/2024 9:40 AM CDT [facility] BASOPHILS ABSOLUTE 0.08 0.00 - 0.20 K/uL 09/13/2024 9:40 AM CDT [facility] IMMATURE GRANULOCYTES ABSOLUTE 0.51(H) 0.00 - 0.10 K/uL 09/13/2024 9:40 AM CDT [facility] SMEAR REVIEWED: NN - No Action Needed 09/13/2024 9:40 AM CDT [facility] Blood Venipuncture / Unknown 09/13/2024 9:16 AM CDT 09/13/2024 9:24 AM CDT Nba Baig MD HEMATOLOGY ORDERABLES F inal Result [facility] CLIA # [id number] [address] [place] [address] [place] [address] * (ABNORMAL) TROPONIN 6 HR, 5TH GEN (09/13/2024 9:16 AM CDT) TROPONIN T, 6 HR 5TH GEN 29(H) <11 ng/L 09/13/2024 9:55 AM CDT [facility] DELTA 6HR TROPONIN T 1 See Interp. 09/13/2024 9:55 AM CDT [facility] Blood Venipuncture / Unknown 09/13/2024 9:16 AM CDT 09/13/2024 9:24 AM CDT Narrative [facility] - 09/13/2024 9:55 AM CDT Troponin elevated. Delta indeterminate. us Robbie Yen DO CHEMISTRY ORDERABLES F inal Result Performing Organization Address [facility] Co de Phone Number [facility] CLIA # [id number] [facility] [address] * (ABNORMAL) POC GLUCOSE (09/13/2024 6:58 AM CDT) [facility] GLUCOSE POC 266(H) 74 - 99 mg/dL 09/13/2024 6:58 AM CDT [facility] SPECIMEN SOURCE, GLUCOSE POC Capillary 09/13/2024 6:58 AM CDT [facility] Blood, whole 09/13/2024 6:58 AM CDT 09/13/2024 7:16 AM CDT Nba Baig MD POINT OF CARE TESTING F inal Result Performing Organization Address [facility] Co de Phone Number [facility] CLIA # [id number] [facility] [address] [address] * RESPIRATORY PATHOGEN PCR PANEL (09/12/2024 11:02 PM CDT) [facility] Respiratory Pathogen PCR Panel NOT DETECTED No respiratory pathogen nucleic acids detected. 09/13/2024 12:31 AM CDT [facility] COVID-19 PCR NOT DETECTED Not Detected 09/13/2024 12:31 AM CDT [facility] Upper Respiratory ENTIRE NASOPHARYNX / Unknown Collection / Unknown 09/12/2024 11:02 PM CDT 09/12/2024 11:08 PM CDT Narrative [facility] - 09/13/2024 12:31 AM CDT The Film [...] GENERAL ORDERABLES Final Result Performing Organization Address [facility] Co de Phone Number [facility] [employer] [facility] CLIA # [id number] [address] [id number] * (ABNORMAL) TROPONIN 2 HR, 5TH GEN (09/12/2024 11:02 PM CDT) Pathologist [facility] TROPONIN T, 2 HR 5TH GEN 27(H) <=10 ng/L 09/12/2024 11:41 PM CDT [facility] [employer] [facility] DELTA 2HR TROPONIN T -1 See Interp. 09/12/2024 11:41 PM CDT [facility] Blood Venipuncture / Unknown 09/12/2024 11:02 PM CDT 09/12/2024 11:10 PM CDT Narrative [facility] [employer] [facility] - 09/12/2024 11:41 PM CDT Troponin elevated. Delta not changing. Robbie Yen DO CHEMISTRY ORDERABLES F inal Result Performing Organization Address [facility] Co de Phone Number [facility] CLIA # [id number] [address] [address] * XR CHEST PA OR AP 1 [...] CDT 09/12/2024 10:59 PM CDT External Provider [facility] HEMATOLOGY ORDERABLES Jana l Result [facility] [employer] [facility] CLIA # [id number] [address] [place] [address] * (ABNORMAL) BRAIN NATRIURETIC PEPTIDE, BNP OR PROBNP (09/12/2024 9:32 PM CDT) PROBNP, N TERMINAL 623(H) 0 - 125 pg/mL 09/12/2024 10:22 PM CDT [facility] [employer] [facility] Comment: INTERPRETIVE COMMENT based on diagnosis: Diagnostic [...] CDT 09/12/2024 9:41 PM CDT Robbie Yen CHEMISTRY ORDERABLES F inal Result Performing Organization Address [facility] de Phone Number [facility] [employer] [facility] CLIA # [id number] [address] [address] [place], [place] [id number] * (ABNORMAL) TROPONIN BASELINE, 5TH GEN (09/12/2024 9:32 PM CDT) TROPONIN T, BASELINE 5TH GEN 28(H) <=10 ng/L 09/12/2024 10:15 PM CDT [facility] [employer] [facility] Blood Venipuncture / Unknown 09/12/2024 9:32 PM CDT 09/12/2024 9:41 PM CDT Narrative [facility] [employer] [facility] - 09/12/2024 10:15 PM CDT Troponin elevated. Robbie Yen DO CHEMISTRY ORDERABLES F inal Result Performing Organization Address [facility] de Phone Number [facility] [employer] [facility] CLIA # [id number] [address] [address] [place], [place] [id number] * (ABNORMAL) COMPREHENSIVE METABOLIC PANEL (09/12/2024 9:32 PM CDT) SODIUM 139 136 - 145 mmol/L 09/12/2024 11:12 PM CDT [facility] [employer] [facility] POTASSIUM 4.2 3.5 - 5.1 mmol/L 09/12/2024 11:12 PM [facility] CHLORIDE 103 98 - 107 mmol/L 09/12/2024 11:12 PM [facility] CO2 22 22 - 29 mmol/L 09/12/2024 11:12 PM [facility] CALCIUM 9.4 8.6 - 10.0 mg/dL 09/12/2024 11:12 PM [facility] BUN 24(H) 6 - 20 mg/dL 09/12/2024 11:12 PM [facility] CREATININE 0.70 0.51 - 0.95 mg/dL 09/12/2024 11:12 PM [facility] GLUCOSE 275(H) 74 - 99 mg/dL 09/12/2024 11:12 PM [facility] TOTAL PROTEIN 6.0(L) 6.4 - 8.3 g/dL 09/12/2024 11:12 PM [facility] ALBUMIN 3.4(L) 3.5 - 5.2 g/dL 09/12/2024 11:12 PM [facility] BILIRUBIN TOTAL 0.2 0.0 - 1.0 mg/dL 09/12/2024 11:12 PM [facility] ALKALINE PHOSPHATASE 108(H) 35 - 104 U/L 09/12/2024 11:12 PM [facility] AST 28 10 - 35 U/L 09/12/2024 11:12 PM [facility] Comment: Hemolysis present. Result may be falsely elevated. Lipemia cleared by ultracentrifugation. ALT 49(H) <=35 U/L 09/12/2024 11:12 PM [facility] Comment:Lipemia cleared by u ltracentrifugation. GFR >60 >=60 mL/min/1.7 3 sq meter 09/12/2024 11:12 PM [facility] Comment:eGFR calculated with 2020 CKD-EPI equation. Vegetarian diet, extremely high or low muscle mass, and may affect results. Cystatin C with Glomerular Filtration Rate is a suitable alternative for these patients. ANION GAP 14 9 - 20 mmol/L 09/12/2024 11:12 PM CDT [facility] Blood Venipuncture / Unknown 09/12/2024 9:32 PM CDT 09/12/2024 9:41 PM CDT us Robbie Yen DO CHEMISTRY ORDERABLES F inal Result [facility] CLIA # [id number] [address] [address] [place] [address] * (ABNORMAL) CBC WITH DIFFERENTIAL (09/12/2024 9:32 PM CDT) Pathologist [facility] WBC 8.0 4.8 - 10.8 K/uL 09/12/2024 9:55 PM CDT [facility] NRBCS 8(H) <1 % 09/12/2024 9:55 [facility] RBC 3.35(L) 4.20 - 5.40 M/uL 09/12/2024 9:55 PM CDT [facility] HEMOGLOBIN 10.8(L) 12.0 - 16.0 g/dL 09/12/2024 9:55 PM CDT [facility] HEMATOCRIT 33.9(L) 36.0 - 46.0 % 09/12/2024 9:55 PM CDT [facility] MCV 101.2 84.0 - 103.0 fL 09/12/2024 9:55 PM CDT [facility] MCH 32.2 27.0 - 34.0 pg 09/12/2024 9:55 PM CDT [facility] MCHC 31.9 30.0 - 35.0 g/dL 09/12/2024 9:55 PM CDT [facility] PLATELETS 180 140 - 440 K/uL 09/12/2024 9:55 PM CDT [facility] MPV 10.8 8.9 - 12.8 fL 09/12/2024 9:55 PM [facility] RDW 19.2(H) 11.0 - 14.5 % 09/12/2024 9:55 PM [facility] RDW-STDEV 71.1(H) 37.0 - 54.0 fL 09/12/2024 9:55 PM [facility] NEUTROPHILS 54 42 - 75 % 09/12/2024 9:55 PM [facility] LYMPHOCYTES 28 24 - 44 % 09/12/2024 9:55 PM [facility] MONOCYTES 12(H) 2 - 10 % 09/12/2024 9:55 PM [facility] EOSINOPHILS 1 0 - 7 % 09/12/2024 9:55 PM [facility] BASOPHILS 1 0 - 1 % 09/12/2024 9:55 PM [facility] IMMATURE GRANULOCYTES 4(H) 0 - 2 % 09/12/2024 9:55 PM [facility] NEUTROPHIL ABSOLUTE 4.35 2.00 - 8.00 K/uL 09/12/2024 9:55 PM [facility] LYMPHOCYTE ABSOLUTE 2.24 1.20 - 4.00 K/uL 09/12/2024 9:55 PM [facility] MONOCYTE ABSOLUTE 0.93(H) 0.10 - 0.60 K/uL 09/12/2024 9:55 PM [facility] EOSINOPHIL ABSOLUTE 0.11 0.00 - 0.70 K/uL 09/12/2024 9:55 PM [facility] BASOPHILS ABSOLUTE 0.05 0.00 - 0.20 K/uL 09/12/2024 9:55 PM [facility] IMMATURE GRANULOCYTES ABSOLUTE 0.35(H) 0.00 - 0.10 K/uL 09/12/2024 9:55 PM [facility] SMEAR REVIEWED: NA - Not Applicable 09/12/2024 9:55 PM [facility] Blood Venipuncture / Unknown 09/12/2024 9:32 PM CDT 09/12/2024 9:41 PM CDT us Robbie Virgen Markcassandraterrie DO HEMATOLOGY ORDERABLES Final Result [facility] # [id number] [address] [place] [address] * EKG 12-LEAD (09/12/2024 9:23 PM CDT) 09/12/2024 9:23 PM CDT Narrative INTERFACE SYSTEM - 09/13/2024 6:08 PM CDT [address] [address] Test Date: 2024-09-12 Pat Name: GIANFRANCO JOE Department: 11 Room: 18 18 Gender: Female Legal Practice Manager: [id number] : 1965 Requested By: Order Number: [id number] Reading : Kyler Helm Measurements Intervals [place] Rate: 95 P: 33 AK: 138 QRS: 48 QRSD: 80 T: -10 QT: 332 QTc: 417 Interpretive Statements Normal sinus rhythm Possible Left atrial enlargement Possible Inferior infarct, age undetermined Abnormal ECG Electronically Signed On 09-13-2024 18:08:49 CDT by Kyler Helm Procedure Note Kyler Helm MD - 09/13/[address] [address] Test Date: 2024-09-12 Pat Name: GIANFRANCO CLAUDIOKINS Department: 11 Room: 18 18 Gender: Female Legal Practice Manager: [id number] : 1965 Requested By: Order Number: [id number] Reading : Kyler Helm Measurements Intervals [place] Rate: 95 P: 33 AK: 138 QRS: 48 QRSD: 80 T: -10 [...] and obtaining history from patient or surrogate us Robbie Yen DO PROCEDURE/MINOR SURGIC AL ORDERABLES Final Result documented in this encounter Visit Diagnoses Diagnosis COPD exacerbation ([facility])- Primary Obstructive chronic bronchitis with exacerbation Bipolar affective disorder, currently depressed, moderate ([facility]) Bipolar I disorder, most recent episode (or current) depressed, moderate HEENA (generalized anxiety disorder) Generalized anxiety disorder Protein-calorie malnutrition, moderate Malnutrition of moderate degree H/O mastectomy, 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 ([facility]/HCC) Chronic combined systolic and diastolic heart failure COPD exacerbation ([facility]) Obstructive chronic bronchitis with exacerbation Opioid dependence with opioid-induced disorder ([facility]) Unspecified drug-induced mental disorder Closed fracture of first lumbar vertebra, unspecified fracture morphology, initial encounter ([facility]) Bipolar affective disorder ([facility]) Bipolar disorder, unspecified Former smoker Personal history of tobacco use, presenting hazards to health HEENA (generalized anxiety disorder) Generalized anxiety disorder GERD (gastroesophageal reflux disease) Esophageal reflux Closed compression fracture of body of L1 vertebra (CMS/HCC) Chronic anticoagulation Encounter for long-term (current) use of anticoagulants Benign hypertension Essential hypertension, benign 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) Type II or unspecified type diabetes mellitus without mention of complication, not stated as uncontrolled Acute on chronic hypoxic respiratory failure (CMS/HCC) Chronic hypoxic respiratory failure (CMS/HCC) 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 Acute respiratory failure with hypercapnia (CMS/HCC) Acute respiratory failure RUQ pain Abdominal pain, [...] doses, Starting on Thu09/12/24 at 2306, Until Thu09/15/24 at 1432, Dyspepsia, Routine cefTRIAXone (ROCEPHIN) 2,000 [...] Given 09/14/2024 4:29 PM CDT 12 Units Ar m, Left Upper Given 09/14/2024 11:26 AM CDT [...] mL, IV, SEE ADMIN INSTRUCTIONS, Starting on 09/12/24 at 2306, Until Thu09/15/24 at 1432, Routine [...] Until [place] 09/15/24 at 1432, Routine dextrose 5 % in [...] 0048, Until [place] 09/15/24 at 1432, Routine doxycycline hyclate (VIBRAMYCIN) 100 mg in sodium chloride 0.9% 100 mL IVPB (MBP) 100 mg, IV, EVERY 12 HOURS (BlD), First dose on Thu09/14/24 at 2200, Until Discontinued, Routine, Antibiotic Indication: Pneumonia - Community-acquired(CAP) 2305 (New Bag - Provider: Shamika Rojas RN) 0005 (Stopped - Provider: Tawanna Khan LPN)0821 (New Bag - Provider: SYLVIA Lody)0921 (Stopped - Provider: SYLVIA Loyd) FLUoxetine (PROzac) [...] Until Discontinued, Routine 1003 (Given - Provider: eKily Larios RN) 0744 (Given - Provider: Esdras [...] on Thu09/14/24 at 0900, Until Discontinued, Routine 08 (Given - Provider: Esdras Traore RN) naloxone [...] 2306, Until [place] 09/15/24 at 1432, Routine sodium chloride flush injection [...] 2306, Until [place] 09/15/24 at 1432, Routine 1307 (Given - Provider: [...] CONTINUOUS, Starting on Thu09/14/24 at 1900, Until [place] 09/15/24 at 1432, Routine 2107 (New Bag - [...] at 2306, Until [place] 09/15/24 at 1432, Other (See Comment), See admin [...] PRN, Starting on Thu09/13/24 at 0019, Until [place] 09/15/24 at 1432, Cough, to thin mucus and [...] Khan LPN) 0827 (Given - Provider: Esdras Traore, MARICARMEN)1306 (Given - Provider: Esdras Traore RN) ipratropium-albuteroL (DUONEB) 0.5 mg-3 mg(2.5 mg base)/3 mL inhalation solution 3 mL(Linked Group 1) 3 mL, Inhalation, EVERY 6 HOURS PRN RESPIRATORY, Starting on Thu09/13/24 at 0312, Until [place] 09/15/24 at 1432, Shortness of Breath, Routine ipratropium-albuteroL (DUONEB) 0.5 mg-3 mg(2.5 mg base)/3 mL inhalation solution 3 mL 3 mL, Inhalation, EVERY 6 HOURS PRN RESPIRATORY, Starting on Thu09/13/24 at 1141, Until [place] 09/15/24 at 1432, Shortness of Breath, Routine LORazepam (ATIVAN) tablet 0.5 mg 0.5 mg, Oral, EVERY 8 HOURS PRN, Starting on Thu09/13/24 at 0018, Until [place] 09/15/24 at 1432, Anxiety, Routine, Previous Med: LORazepam (ATIVAN) 0.5 mg tablet - Orig Sig - Take 1 Tablet (0.5 mg) by mouth every 8 hours as needed for Anxiety. 0244 (Given - Provider: Tawanna Khan LPN) ondansetron (ZOFRAN) 4 mg/2 mL injection 4 mg 4 mg, IV, EVERY 6 HOURS PRN, Starting on Thu09/12/24 at 2306, Until [place] 09/15/24 at 1432, Nausea/Emesis, Routine 0726 (Given - [...] LPN) 0607 (Given - Provider: Tawanna Khan LPN)1630 (Given - Provider: Esdras Traore RN)2051 (Return to Cabinet - Provider: Tawanna Khan LPN)225 (Given - Provider: Shamika Rojas RN) 0539 [...] documented as of this encounter Care Teams [employer] Relationship Specialty Start Date End Date Delta Wade MD [address] [place] [id number] PCP - General Family Practice 03/25/24 documented as of this encounter
--- OUTSIDE RECORDS SUMMARY | 2024-09-16 23:40 | XMS_ITS | Encounter Summary ---
Author Organization [facility] Address [address] [place] [address] Care Team Providers Care Certified Pathology Assistant Name Role Phone Delta Wade MD Primary Care Provider [phone] Reason for Visit * Reason Comments Shortness of Breath C/o SOB denies fever . + home O2 3lpm. + leg swelling. Just released yesterday. Per brother pt will ask the same questions and is confused Encounter Details Date Type Department Care Team (Late st Contact Info) Description 09/16/2024 11:40 PM CDT - 09/16/2024 11:41 PM CDT Emergency [facility] Emergency Department [address] [place] [address] Discharge Disposition: Left without being [...] often do you attend chur ch or shinto services? 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 15 Tablet 09/15/2024 azithromycin (ZITHROMAX) 250 mg tablet Take 2 [...] Shortness of Breath. 60 Each 1 08/26/2024 ranolazine ER (RANEXA) 500 mg Extended Release 12 hour tablet Take 1 Tablet (500 mg) by mouth every 12 hours. 60 Tablet 1 08/27/2024 budesonide 160 mcg-glycopyr 9 mcg-formot 4.8 mcg/actuation HFA inhaler Take 2 Puffs by inhalation 2 times daily. 60 Each 1 08/26/2024 levalbuterol (XOPENEX) 1.25 mg/3 mL Solution for [...] :Chronic obstructive pulmonary disease, unspecified COPD type ([facility]),Oxygen dependent Face to Face completed within 30 days: yes Length of Need: 99 months By: Nasal Cannula Continuously at 3 L/min. 1 Each 08/27/2023 TechLITE Pen Needle 29 gauge x 1/2 Needle USE directed with Victoza. 12/29/2022 naloxone (NARCAN) 4 mg/spray [place], Non-Aerosol EMERGENCY USE ONLY: Administer 1 spray (4 mg) in one nostril one time. May repeat in alternating nostrils every 2-3 min until responsive or EMS arrives. 2 Each 3 01/06/2023 blood sugar diagnostic StripIndications: Type 2 diabetes mellitus without complication, without long-term current use of insulin ([facility]) Use to test blood glucose up to QID PRN symptoms. 100 Each 11 12/17/2022 OneTouch Delica Plus Lancet 30 gauge USE TO test fasting blood glucose DAILY 11/04/2022 Blood-Glucose Meter KitIndications:Ty pe 2 diabetes mellitus without complication, without long-term current use of insulin ([facility]) Use to test blood glucose up to TID PRN symptoms. 1 Each 12/02/2022 documented as of this encounter ED Notes * Winsome Steward, RN - 09/16/2024 11:38 PM CDT LWBS after triage. Pt went to [facility] and called 911 and came back to let this nurse know she needed to be signed out so she could go to [facility]. Pt did refuse blood work because she was demanding US guidedIV * Jacque Johnson, RN - 09/16/2024 11:05 PM CDT C/o SOB x4 days, progressively worsening. Pt reports hx of COPD and wears 3L NC continuously. Labored breathing noted and bilat expiratory wheezes noted during ascultation documented in this encounter Plan of Treatment Upcoming Encounters Date Type Department Care Team (Late st Contact Info) Description 09/22/2024 10:00 AM CDT Office Visit [facility] Neurosurgery [address] [place] [address] Jerson Salas PA [address] [place] [address] 10/06/2024 4:00 PM CDT Office Visit [facility] Pulmonology [address] [place] [address] Cristian Metcalf FNP [address] [place] [address] documented as of this encounter Goals Goal Patient Goal Type Associated Problems Recent Progress Patient-Stated? Author Heart Failure Goal Care Plan Heart Failure Problem No Latonya Anguiano LPN documented as of this encounter Visit Diagnoses Not on filedocumented in this encounter Active and Recently Administered Medications Additional Health Concerns Active Problems Noted Date Diagnosed Date Heart Failure Problem 05/12/2024 documented as of this encounter Care Teams Certified Pathology Assistant Relationship Specialty Start Date End Date Delta Wade MD [address] [address] PCP - General Family Practice 03/25/24 documented as of this encounter
[2024-09-17 13:32] VITALS: BP 126/77; PULSE 102; RESP 18; TEMP 36.7; O2SAT 93; BMI 38.0
--- OUTSIDE RECORDS SUMMARY | 2024-09-17 13:37 | XMS_ITS ---
Author Organization [facility] Address [address] [place] [address] Phone Care Team Providers Care Silk Examiner Name Role Phone Delta Wade MD Primary Care Provider [phone] Active Problems Problem Noted Date Diagnosed Date Acute respiratory failure with hypercapnia 09/13 Diarrhea 09/13/2024 Chest pain 08/26/2024 At risk for obstructive sleep apnea 08/25/2024 COPD exacerbation 08/22/2024 Back pain 08/18/2024 Rhinovirus infection 08/15/2024 L1 vertebral fracture 08/15/2024 Closed compression fracture of body of L1 verteb ra 08/15/2024 Dyspnea 08/15/2024 Fall 08/14/2024 Chronic anticoagulation 08/09/2024 CAD (coronary atherosclerotic disease) Morbid obesity due to excess calories 08/04/2024 Insulin dependent type 2 diabetes mellitus 07/23 Benign hypertension 07/23/2024 Pneumonia of left lung due to infectious organis m 07/22/2024 Acute on chronic hypoxic respiratory failure 04/2024 Macrocytosis 07/19/2024 Chronic combined systolic and diastolic heart fa ilure 07/18/2024 Cellulitis of right lower extremity 07/14/2024 Preoperative general physical examination 2024 Obesity (BMI 30.0-34.9) 07/12/2024 Anemia 07/12/2024 HFrEF (heart failure with reduced ejection fract ion) 07/12/2024 Right leg pain 07/04/2024 Chronic hypoxic respiratory failure 07/03/2024 Pneumonia of left lower lobe due to infectious o rganism 07/01/2024 Hammertoe of left foot 06/05/2024 Neuropathy 04/08/2024 Non-proliferative diabetic retinopathy, left eye 03/07/2024 Nuclear age-related cataract, both eyes 03/07/20 Vitreomacular adhesion of right eye 03/07/2024 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 03/07/2024 Atypical angina 02/19/2024 Peripheral edema 08/05/2023 Hot flashes 08/05/2023 Snoring 08/05/2023 Daytime somnolence 08/05/2023 Hypokalemia 07/21/2023 History of pulmonary embolism 07/21/2023 History of splenectomy 06/10/2023 NSTEMI (non-ST elevated myocardial infarction) 0 06/06/2023 Protein-calorie malnutrition, moderate Adynamic ileus 06/02/2023 Leukocytosis (leucocytosis) 06/02/2023 RUQ pain 05/31/2023 Splenic cyst 05/31/2023 Hematoma of spleen after procedure on spleen 10/2023 Closed nondisplaced fracture of body of left sca pula 05/04/2023 H/O mastectomy, right 03/04/2023 Tachycardia 12/02/2022 COPD with exacerbation 12/02/2022 Asthma 12/02/2022 Chronic pain syndrome 12/02/2022 Osteoarthritis of cervical spine 12/02/2022 HEENA (generalized anxiety disorder) 12/02/2022 GERD (gastroesophageal reflux disease) Opioid dependence 12/02/2022 History of cancer of vagina 12/02/2022 History of breast cancer 12/02/2022 Vagina absent 06/22/2019 Overview (07/18/2024): - 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 Past Treatment and Therapy Plans No past plan information found. Lifetime Dose Tracking * Chemical Lifetime Dose Automatic Entry Manual Entr y cisplatin 72.351 mg/m2 (140 mg) 0 mg/m2 (0 mg) 72.3 51 mg/m2 (140 mg) Effective Dose 222.67 mSv 222.67 mSv 0 mSv Total DLP 16,971.45 DLP 16,971.45 DLP 0 DLP CTDIvol Max 691.23 mGy 691.23 mGy 0 mGy CTDIvol Min 4.8 mGy 4.8 mGy 0 mGy Air Kerma 495 mGy 0 mGy 495 mGy Dose Area Product (DAP) 55.2 Gy-cm2 0 Gy-cm2 55.2 Gy-cm2 Resolved Problems Problem Noted Date Diagnosed Date Resolved Date Chest pain 08/05/2024 08/09/2024 Acute on chronic respiratory failure with hypoxia and hypercapnia 07/22/2024 08/09/2024 COPD exacerbation 07/21/2024 08/09/2024 Acute respiratory distress 07/19/2024 0 08/09/2024 Melena 03/19/2024 07/12/2024 Coffee ground emesis 03/19/2024 025 Pneumonia due to COVID-19 virus 02/18/2024 07/12/2024 Community acquired pneumonia 02/18/2024 07/12/2024 Nausea and vomiting 05/31/2023 07/13/19 25 Yeast infection involving th e vagina and surrounding area 01/06/2022 12/02/2022 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
--- OUTSIDE RECORDS SUMMARY | 2024-09-17 13:37 | XMS_ITS | Data Portability ---
Author Organization [facility] Jose Gaxiola [facility] Address [address] [place] [address] Assessment No assessment recorded. Plan of Treatment Reminders Order Date Submit Date Provider Last Modified By Organization Details Last Modified Time Details Appointments HOSPITAL F/U30 2024 03:00P M Delta Wade MD Not available Not available Not available Lab None recorded . Referral gastroen terologi st referral 2023 024 [email or web address] Curly Ortiz DO, [address] [place], [address], 02/05/2024 11:34:58 Procedures None recorded . Surgeries None recorded . Imaging None recorded . Medication Orders oxycodon e-acetam inophen 5 mg-325 mg tablet 2024 025 [facility] #[id number], [address], [address], 08/02/2024 16:22:05 oxycodon e-acetam inophen 5 mg-325 mg tablet 2024 025 [facility] #[id number], [address] [facility] [address], [address], 06/07/2024 15:19:42 insulin lispro (U-100) 100 unit/mL subcutan eous pen 2024 025 [facility] #[id number], [address], [address], 06/07/2024 15:19:39 levalbut phu 1.25 mg/3 mL solution for nebuliza tion 2024 025 [id number], [address], [address], [place], [address], 06/07/2024 15:19:40 Lantus Solostar U-100 Insulin 100 unit/mL (3 mL) subcutan eous pen 2024 025 [id number], [address], [address], [place], [address], 04/12/2024 15:29:30 Novolog FlexPen U-100 Insulin aspart 100 unit/mL (3 mL) subcutan eous 2024 025 [id number], [address], [address], [place], [address], 06/07/2024 14:44:08 lorazepa m 0.5 mg tablet 2024 025 [id number], [address], [address], [place], [address], 04/12/2024 15:29:33 furosemi de 40 mg tablet 2024 025 [id number], [address], [place], [address], 06/07/2024 14:43:15 potassiu m chloride ER 10 mEq tablet,e xtended release 2024 025 [id number], [address], [address], [place], [address], 06/07/2024 14:45:15 Zyprexa 10 mg tablet 2024 025 [facility] #[id number], [address], [address], [place], [address], 04/12/2024 15:29:29 oxycodon e-acetam inophen 5 mg-325 mg tablet 2023 024 [id number], [address], [address], [place], [address], 06/07/2024 14:45:37 citalopr am 20 mg tablet 2023 024 [facility] #[id number], [address], [address], [place], [address], 06/07/2024 14:42:31 Patient TargetsNo targets recorded. Patient InstructionsNo instructions recorded. Reason for Referral Buffer Chrome Referral for Gastroesophageal reflux disease Referring Physician: Delta Wade, Family Medicine, Encounter Date: 01/19/2024 Results Created Date Observation Date Name Description Value Unit Range Abnormal Flag Note LastModifiedBy Organization Detail LastModifiedTime 12/31/1912/23/2023 polys omnog celine (PROC ) No observ ation record ed. [facility] [address], [address], [place], [address], 01/13/2024 17:03:36 02/22/20 24 02/22/2024 XR, chest , 2 view No observ ation record ed. [email or web address] [facility] [address] [facility], [place], [address], 02/23/2024 10:23:17 06/04/19 25 06/03/2024 CT, angio gram, chest , w/ contr ast No observ ation record ed. [email or web address] [place] [address] [place], [address], 06/06/2024 16:58:18 07/01/19 25 06/30/2024 XR, chest , 2 view No observ ation record ed. [email or web address] [facility] [address] [place], [address], 07/01/2024 08:46:49 Result Notes None recorded. Problems Name Problem SNOMED Code Status Onset Date Resolution Date Notes Provider Name and Address Organization Details Recorded Time Pulmonary embolism 33827679 Active 2023 JOSE moy [facility] 5 14:52:04 Coronary arterioscle rosis 06115535 Active 2023 JOSE moy [facility] 5 14:52:04 Essential hypertensio n 54580992 Active 2023 JOSE moy [facility] 5 14:52:04 Type 2 diabetes mellitus 23411414 [facility] 14:[facility]:04 Mixed anxiety and depressive disorder 877646362 Active 2023 JOSE moy [facility] 5 14:52:04 Chronic osteoarthri tis 26487815 Active 2023 JOSE moy [facility] 5 14:52:04 Chronic obstructive pulmonary disease 83040386 Active 2023 JOSE moy [facility] 5 14:52:04 Pain of left shoulder joint [id number] 9109 Active 2023 JOSE moy [facility] 5 14:52:04 Syncope 745584423 Active 2023 JOSE moy [facility] 5 14:52:04 Edema of lower extremity 667460814 Active 2023 JOSE BRIGHT null, [facility] 5 14:52:04 Urinary incontinenc e 352059064 Active 2023 JOSE BRIGHT null, [facility] 5 14:52:04 Recurrent falls 613100407 Active 2023 JOSE BRIGHT null, [facility] 5 14:52:04 Gastroesoph ageal reflux disease 631137564 Active 2023 JOSE moy, [facility] 5 14:52:04 Major depressive disorder 482949323 Active 2023 JOSE BRIGHT null, [facility] 5 14:52:04 Chronic systolic heart failure 549059616 [facility] 14:52:04 Generalized anxiety disorder 21605632 Active 2024 [facility] 14:52:04 Chronic diastolic heart failure 783483260 Active 2024 JOSE BRIGHT [facility] 5 14:52:04 Closed fracture lumbar vertebra, wedge 364378642 Active 2024 YANNICK PERSON [facility] 5 10:07:16 Hammer toe 717828298 Active 2024 YANNICK PERSON [facility] 5 10:07:15 Mass of right lower lobe of lung [id number] 09 Active 2024 YANNICK PERSON [facility] 5 10:07:03 Yariel crawford 638687937 Active 2024 Delta Wade MD [address] [place] [address], [address], [facility] 5 16:17:59 Problem Notes None recorded. Procedures Surgical History Date Name Laterality Status Provider Name and Address Organization Details Recorded Time Splenectomy completed Sonal Hollis [facility] 08/14/2023 11:39:32 Imaging Results None recorded. Procedure Notes None recorded. Medical Equipment None Reported. Allergies Allergen ID Allergen Name Allergen Category Reaction Reaction Severity Criticality Documentation Date Start Date Code Code System Note Provider Name and Address Organization Details Recorded Time 29855 Compazine medicatio n myalgias (muscle pain) moderate low 10/19/2022 91234 6 RxNorm Lola Redmond [facility] 4 10:30:07 92122 Darvocet- N medicatio n hives mild low 06/20/2023 27160 UNK Lola Redmond [facility] 4 10:30:27 87107 Toradol medicatio n hives Not available Not available 08/21/2023 73638 RxNorm JOSE BRIGHT [facility] 4 16:04:49 Medications Name Sig Start Date Stop Date Status Note LastModified by Organization Details LastModified Time nebulizer compressor system [id number] USE DIRECTED active Not Available Not Available No t Available fluoxetine 40 mg capsule TAKE 1 CAPSULE BY MOUTH DAILY 12/21 completed Not Available Not Available Not Available cyclobenzap rine 10 mg tablet TAKE ONE TABLET BY MOUTH EVERY EIGHT hours 08/20 completed Not Available Not Available Not Available furosemide 40 mg tablet TAKE 1 TABLET BY MOUTH TWICE A DAY active Not Available Not Available No t Available atorvastati n 40 mg tablet TAKE ONE TABLET BY MOUTH ONCE DAILY AT BEDTIME active Not Available Not Available No t Available promethazin e-DM 6.25 mg-15 mg/5 mL oral syrup TAKE 10 MILLILITE RS BY MOUTH EVERY 4 HOURS NEEDED 06/07 completed Not Available Not Available Not Available carvedilol 25 mg tablet TAKE 1 TABLET BY MOUTH TWICE DAILY 08/20 completed Not Available Not Available Not Available nystatin 100,000 unit/mL oral suspension SHAKE LIQUID AND TAKE 10 ML BY MOUTH FOUR TIMES DAILY FOR 10 DAYS 08/20 completed Not Available Not Available Not Available clonidine HCl 0.1 mg tablet TAKE 1 TABLET BY MOUTH TWICE A DAY active Not Available Not Available No t Available prednisone 10 mg tablet PLEASE SEE ATTACHED FOR DETAILED DIRECTION S active Not Available Not Available No t Available doxycycline hyclate 100 mg capsule TAKE 1 CAPSULE BY MOUTH TWICE A DAY FOR 10 DAYS active Not Available Not Available No t Available nicotine 14 mg/24 hr daily transdermal patch apply ONE PATCH TO SKIN directed EVERY 24 hours 08/20 completed Not Available Not Available Not Available ipratropium 0.5 mg-albutero l 3 mg (2.5 mg base)/3 mL nebulizatio n soln TAKE 3 ML BY INHALATIO N EVERY 4 HOURS NEEDED FOR SHORTNESS OF BREATH. active Not Available Not Available No t Available bumetanide 2 mg tablet TAKE ONE TABLET BY MOUTH ONCE daily NEEDED FOR EDEMA. active Not Available Not Available No t Available albuterol sulfate 2.5 mg/3 mL (0.083 %) solution for nebulizatio n INHALE CONTENTS OF 1 VIAL VIA NEBULIZER EVERY 6 HOURS NEEDED FOR SHORTNESS OF BREATH/WH EEZING active Not Available Not Available No t Available azithromyci n 250 mg tablet TAKE 2 TABLETS BY MOUTH TODAY, THEN TAKE 1 TABLET DAILY FOR 4 DAYS DIRECTED active Not Available Not Available No t Available benzonatate 200 mg capsule TAKE 1 CAPSULE BY MOUTH THREE TIMES DAILY FOR COUGH 08/20 completed Not Available Not Available Not Available hydrochloro thiazide 50 mg tablet TAKE 1 TABLET BY MOUTH IN THE MORNING 08/20 completed Not Available Not Available Not Available hydrocodone 5 mg-acetamin ophen 325 mg tablet TAKE 1 TABLET BY MOUTH EVERY 6 HOURS NEEDED FOR 7 DAYS 06/07 completed Not Available Not Available Not Available warfarin 10 mg tablet TAKE 1 TABLET BY MOUTH EVERY DAY active Not Available Not Available No t Available prazosin 1 mg capsule TAKE ONE CAPSULE BY MOUTH ONCE daily AT bedtime. 08/20 completed Not Available Not Available Not Available sucralfate 100 mg/mL oral suspension TAKE 10ML BY MOUTH WITH MEALS AND AT BEDTIME FOR 7 DAYS active Not Available Not Available No t Available meloxicam 15 mg tablet TAKE ONE TABLET BY MOUTH DAILY. 11/09 completed Not Available Not Available Not Available sucralfate 1 gram tablet TAKE 1 TABLET BY MOUTH THREE TIMES DAILY FOR 4 WEEKS 08/20 completed Not Available Not Available Not Available prednisone 20 mg tablet TAKE 1 TABLET (20 MG) BY MOUTH 2 TIMES DAILY WITH MEALS. active Not Available Not Available No t Available isosorbide mononitrate ER 30 mg tablet,exte nded release 24 hr TAKE 1 TABLET BY MOUTH EVERY DAY active Not Available Not Available No t Available dexamethaso ne 6 mg tablet TAKE 1 TABLET BY MOUTH EVERY DAY FOR 5 DAYS 08/02 completed Not Available Not Available Not Available fluorouraci l 5 % topical cream APPLY TO AFFCETED AREA TWICE A DAY FOR 4 WEEKS active Not Available Not Available No t Available olanzapine 5 mg tablet TAKE ONE TABLET BY MOUTH TWICE DAILY NEEDED FOR ANXIETY 08/20 completed Not Available Not Available Not Available metolazone 5 mg tablet TAKE 1 TABLET BY MOUTH TWICE DAILY 30 MINUTES BEFORE A MEAL FOR HEART FAILURE 08/20 completed Not Available Not Available Not Available Lantus U-100 Insulin 100 unit/mL subcutaneou s solution active Not Available Not Available N ot Available olanzapine 10 mg tablet TAKE 1 TABLET BY MOUTH EVERY DAY IN THE EVENING FOR 30 DAYS active Not Available Not Available No t Available hydralazine 25 mg tablet TAKE ONE TABLET BY MOUTH TWICE DAILY 11/09 completed Not Available Not Available Not Available amlodipine 2.5 mg tablet TAKE ONE TABLET BY MOUTH DAILY active Not Available Not Available No t Available potassium chloride ER 10 mEq tablet,exte nded release TAKE 1 TABLET BY MOUTH EVERY DAY FOR 30 DAYS 06/07 completed Not Available Not Available Not Available acetaminoph en 300 mg-codeine 30 mg tablet TAKE ONE TABLET BY MOUTH EVERY SIX hours as needed for acute pain 11/09 completed Not Available Not Available Not Available clopidogrel 75 mg tablet TAKE 1 TABLET BY MOUTH ONCE DAILY 08/20 completed Not Available Not Available Not Available amlodipine 5 mg tablet TAKE 1 TABLET BY MOUTH EVERY DAY FOR 30 DAYS 09/24 completed Not Available Not Available Not Available olanzapine 2.5 mg tablet TAKE ONE TABLET BY MOUTH TWICE DAILY NEEDED FOR anxiety. 08/20 completed Not Available Not Available Not Available hydrocodone 10 mg-acetamin ophen 325 mg tablet TAKE ONE TABLET BY MOUTH EVERY FOUR hours NEEDED FOR pain, moderate. Max daily AMOUNT SIX TABLETS. 08/20 completed Not Available Not Available Not Available tramadol 50 mg tablet TAKE 1 TABLET BY MOUTH FOUR TIMES A DAY NEEDED FOR 30 DAYS 06/07 completed Not Available Not Available Not Available quetiapine 100 mg tablet TAKE 1 TABLET BY MOUTH EVERY DAY IN THE EVENING 12/21 completed Not Available Not Available Not Available spironolact one 25 mg tablet TAKE 1 TABLET BY MOUTH EVERY DAY 11/09 completed Not Available Not Available Not Available ondansetron 8 mg disintegrat ing tablet DISSOLVE 1 TABLET ON THE TONGUE EVERY 8 HOURS NEEDED FOR NAUSEA OR VOMITING 08/20 completed Not Available Not Available Not Available lidocaine-p rilocaine 2.5 %-2.5 % topical cream 08/20 completed Not Available Not Available Not Available ketorolac 10 mg tablet TAKE ONE TABLET BY MOUTH EVERY EIGHT hours as needed for pain 08/20 completed Not Available Not Available Not Available meloxicam 7.5 mg tablet Take 1 tablet every day by oral route for 14 days. 06/19 completed Not Available Not Available Not Available oxycodone-a cetaminophe n 5 mg-325 mg tablet TAKE 1 TABLET BY MOUTH EVERY 6 HOURS NEEDED FOR 30 DAYS active Not Available Not Available No t Available citalopram 20 mg tablet Take 1 tablet every day by oral route for 30 days. 06/07 completed Not Available Not Available Not Available famotidine 20 mg tablet TAKE 1 TABLET BY MOUTH TWICE A DAY FOR 14 DAYS 06/07 completed Not Available Not Available Not Available lorazepam 0.5 mg tablet TAKE 1 TABLET BY MOUTH THREE TIMES A DAY NEEDED active Not Available Not Available No t Available methocarbam ol 750 mg tablet TAKE ONE TABLET BY MOUTH nightly NEEDED FOR spasm. 08/20 completed Not Available Not Available Not Available oxycodone-a cetaminophe n 10 mg-325 mg tablet TAKE ONE TABLET BY MOUTH TWICE DAILY as needed for SEVERE pain. max DAILY AMOUNT of TWO TABLETS 08/20 completed Not Available Not Available Not Available meclizine 25 mg tablet TAKE ONE TABLET BY MOUTH THREE TIMES DAILY as needed for dizziness 08/20 completed Not Available Not Available Not Available hydrocodone 7.5 mg-acetamin ophen 325 mg tablet TAKE ONE TABLET BY MOUTH EVERY EIGHT hours NEEDED FOR pain, moderate. Max daily AMOUNT THREE TABLETS. 08/20 completed Not Available Not Available Not Available cephalexin 500 mg capsule TAKE 1 CAPSULE BY MOUTH 2 TIMES DAILY FOR 2 DAYS. active Not Available Not Available No t Available pantoprazol e 40 mg tablet,cris yed release TAKE 1 TABLET BY MOUTH EVERY DAY WITH MORNING MEAL active Not Available Not Available No t Available neomycin-po lymyxin-dex ameth 3.5 mg/mL-10,00 0 unit/mL-0.1 % eye drops PLEASE SEE ATTACHED FOR DETAILED DIRECTION S active Not Available Not Available No t Available triamcinolo ne acetonide 0.1 % topical ointment apply TO affected AREA TWICE DAILY 08/20 completed Not Available Not Available Not Available ropinirole 0.5 mg tablet TAKE 1 TABLET BY MOUTH EVERY DAY AT BEDTIME active Not Available Not Available No t Available warfarin 5 mg tablet TAKE ONE TABLET BY MOUTH AT BEDTIME. 09/06 completed Not Available Not Available Not Available ibuprofen 400 mg tablet TAKE 1 TABLET BY MOUTH EVERY EIGHT hours as needed for pain 08/20 completed Not Available Not Available Not Available Advair Diskus 500 mcg-50 mcg/dose powder for inhalation Inhale one PUFF BY MOUTH TWICE DAILY 08/20 completed Not Available Not Available Not Available nitroglycer in 0.[address] 1 TABLET BY SUBLINGUA L ROUTE DIRECTED FOR 30 DAYS. active Not Available Not Available No t Available docusate sodium 100 mg capsule TAKE ONE CAPSULE BY MOUTH TWICE DAILY 08/20 completed Not Available Not Available Not Available gabapentin 300 mg capsule TAKE TWO CAPSULES BY MOUTH THREE TIMES DAILY. 08/02 completed Not Available Not Available Not Available bumetanide 1 mg tablet TAKE ONE TABLET BY MOUTH DAILY. 08/20 completed Not Available Not Available Not Available hydroxyzine HCl 25 mg tablet TAKE 1 TABLET BY MOUTH THREE TIMES A DAY NEEDED FOR 30 DAYS 11/09 completed Not Available Not Available Not Available codeine 10 mg-guaifene sin 100 mg/5 mL oral liquid TAKE 10ml BY MOUTH EVERY EIGHT hours needed FOR cough 08/20 completed Not Available Not Available Not Available Baby Aspirin 81 mg chewable tablet Chew 1 tablet every day by oral route. 08/20 completed Not Available Not Available Not Available furosemide 20 mg tablet TAKE ONE TABLET BY MOUTH EVERY DAY FOR FIVE DAYS. 08/20 completed Not Available Not Available Not Available clobetasol 0.05 % topical ointment apply TO affected AREA TWICE DAILY 08/20 completed Not Available Not Available Not Available levalbutero l 1.25 mg/3 mL solution for nebulizatio n INHALE 3 ML BY NEBULIZAT ION ROUTE EVERY 6 HOURS NEEDED active Not Available Not Available No t Available methylpredn isolone 4 mg tablets in a dose pack TAKE 6 TABLETS ON DAY 1 DIRECTED ON PACKAGE AND DECREASE BY 1 TAB EACH DAY FOR A TOTAL OF 6 DAYS 03/21 completed Not Available Not Available Not Available lisinopril 40 mg tablet TAKE one-half tablet BY MOUTH DAILY 08/20 completed Not Available Not Available Not Available ondansetron 4 mg disintegrat ing tablet DISSOLVE 1 TABLET BY MOUTH FOUR TIMES DAILY NEEDED FOR NAUSEA AND VOMITTING active Not Available Not Available No t Available cefdinir 300 mg capsule TAKE 1 CAPSULE BY MOUTH TWICE A DAY X7DAYS 06/07 completed Not Available Not Available Not Available metformin ER 500 mg tablet,exte nded release 24 hr TAKE ONE TABLET BY MOUTH DAILY FOR SEVEN DAYS, THEN increase TO TWO tablets BY MOUTH daily. 08/20 completed Not Available Not Available Not Available sertraline 50 mg tablet TAKE 1 TABLET BY MOUTH EVERY DAY active Not Available Not Available No t Available doxycycline hyclate 100 mg tablet TAKE ONE TABLET BY MOUTH TWICE DAILY FOR 10 DAYS 09/24 completed Not Available Not Available Not Available naproxen 500 mg tablet TAKE 1 TABLET BY MOUTH TWICE DAILY NEEDED FOR PAIN 08/20 completed Not Available Not Available Not Available amoxicillin 875 mg-potassiu m clavulanate 125 mg tablet TAKE 1 TABLET BY MOUTH EVERY 12 HOURS FOR 7 DAYS 12/01 completed Not Available Not Available Not Available Ventolin HFA 90 mcg/actuati on aerosol inhaler INHALE 2 PUFFS EVERY 4 HOURS BY MOUTH active Not Available Not Available No t Available enoxaparin 100 mg/mL subcutaneou s syringe 1 ML SUBCUTANE OUS EVERY 12 HOURS FOR 7 DAYS active Not Available Not Available No t Available insulin lispro (U-100) 100 unit/mL subcutaneou s pen INJECT 12 UNITS 3 TIMES A DAY BY SUBCUTANE OUS ROUTE BEFORE MEAL(S). active Not Available Not Available No t Available aripiprazol e 30 mg tablet TAKE 1 TABLET BY MOUTH DAILY AT BEDTIME 12/06 completed Not Available Not Available Not Available Novolog FlexPen U-100 Insulin aspart 100 unit/mL (3 mL) subcutaneou s Inject 12 units 3 times a day by subcutane ous route before meal(s). 06/07 completed Not Available Not Available Not Available cyclobenzap rine 5 mg tablet TAKE 1 TO 2 TABLETS BY MOUTH THREE TIMES DAILY NEEDED FOR MUSCLE SPASM 08/20 completed Not Available Not Available Not Available rosuvastati n 5 mg tablet TAKE ONE TABLET BY MOUTH DAILY. 08/20 completed Not Available Not Available Not Available rosuvastati n 20 mg tablet TAKE ONE TABLET BY MOUTH DAILY. 08/20 completed Not Available Not Available Not Available bupropion HCl XL 300 mg 24 hr tablet, extended release TAKE 1 TABLET BY MOUTH EVERY DAY FOR 30 DAYS active Not Available Not Available No t Available bupropion HCl XL 150 mg 24 hr tablet, extended release TAKE 1 TABLET BY MOUTH EVERY DAY 01/18 completed Not Available Not Available Not Available metoprolol tartrate 25 mg tablet TAKE 1/2 TABLET TWICE A DAY BY MOUTH active Not Available Not Available No t Available nitrofurant oin monohydrate /macrocryst als 100 mg capsule TAKE ONE CAPSULE BY MOUTH TWICE DAILY. 08/20 completed Not Available Not Available Not Available Byetta 5 mcg/dose (250 mcg/mL)1.2 mL subcutaneou s pen injector Inject FIVE mcg under the skin TWICE DAILY. 08/20 completed Not Available Not Available Not Available fentanyl 12 mcg/hr transdermal patch APPLY 1 PATCH TOPICALLY TO THE SKIN EVERY 72 HOURS 08/20 completed Not Available Not Available Not Available Ativan q8 prn 06/07 completed Not Available Not Available Not Available ranolazine ER 500 mg tablet,exte nded release,12 hr TAKE 1 TABLET BY MOUTH EVERY 12 HOURS active Not Available Not Available No t Available Januvia 50 mg tablet TAKE ONE TABLET BY MOUTH DAILY 08/20 completed Not Available Not Available Not Available Symbicort 160 mcg-4.5 mcg/actuati on HFA aerosol inhaler Inhale TWO puffs BY MOUTH TWICE DAILY. active Not Available Not Available No t Available Lantus Solostar U-100 Insulin 100 unit/mL (3 mL) subcutaneou s pen Inject 20 units every day by subcutane ous route at bedtime. 2024 active Not Available Not Available Not Avai lable oxycodone 10 mg tablet TAKE ONE TABLET BY MOUTH EVERY SIX hours. 08/20 completed Not Available Not Available Not Available quetiapine ER 50 mg tablet,exte nded release 24 hr TAKE ONE TABLET BY MOUTH late in THE DAY. 12/01 completed Not Available Not Available Not Available ClearLax 17 gram/dose oral powder DISSOLVE 17grams in liquid AND drink DAILY NEEDED FOR CONSTIPAT ION 08/20 completed Not Available Not Available Not Available Brilinta 90 mg tablet TAKE 1 TABLET BY MOUTH TWICE A DAY active Not Available Not Available No t Available prednisone 2 mg tablet,cris yed release Take 1 tablet every day by oral route for 6 days. 06/07 completed Not Available Not Available Not Available TRUEplus Lancets 33 gauge 4 TIMES DAILY active Not Available Not Available No t Available Eliquis 5 mg tablet TAKE ONE TABLET BY MOUTH TWICE DAILY. 08/20 completed Not Available Not Available Not Available Victoza 3-Alessandro 0.6 mg/0.1 mL (18 mg/3 mL) subcutaneou s pen injector inject 0.6mg subcutane ously ONCE DAILY FOR SEVEN DAYS, THEN 1.2mg DAILY. not TO exceed 1.8mg PER DAY subcutane ously 12/21 completed Not Available Not Available Not Available paroxetine mesylate (menopausal symptoms suppressant ) 7.5 mg capsule take ONE CAPSULE BY MOUTH AT BEDTIME 08/20 completed Not Available Not Available Not Available Anoro Ellipta 62.5 mcg-25 mcg/actuati on powder for inhalation INHALE 1 PUFF EVERY DAY active Not Available Not Available No t Available Jardiance 10 mg tablet TAKE 1 TABLET BY MOUTH EVERY DAY IN THE MORNING active Not Available Not Available No t Available True Metrix Glucose Test Strip 4 TIMES A DAY active Not Available Not Available No t Available True Metrix Glucose Meter USE DIRECTED. active Not Available Not Available No t Available Trulicity 1.5 mg/0.5 mL subcutaneou s pen injector INJECT 1.5MG SUBCUTANE OUSLY EVERY 7 DAYS. 01/18 completed Not Available Not Available Not Available Rexulti 3 mg tablet TAKE ONE TABLET BY MOUTH DAILY. 08/20 completed Not Available Not Available Not Available Rexulti 2 mg tablet TAKE 1 TABLET BY MOUTH DAILY 08/20 completed Not Available Not Available Not Available Narcan 4 mg/actuatio n nasal spray call 911. administe r a single spray of narcan in one nostril. repeat every 2-3 minutes as needed if no or minimal response active Not Available Not Available No t Available Vraylar 1.5 mg capsule TAKE ONE CAPSULE BY MOUTH daily. 08/20 completed Not Available Not Available Not Available Pentips Pen Needle 31 gauge x 1/4 USE DIRECTED. active Not Available Not Available No t Available nicotine (polacrilex ) 4 mg buccal mini lozenge TAKE ONE lozenge BY MOUTH EVERY TWO hours as needed for smoking cessation 08/20 completed Not Available Not Available Not Available TechLITE Pen Needle 29 gauge x 1/2 USE directed with Victoza. active Not Available Not Available No t Available Eliquis DVT-PE Treatment 30-Day Starter 5 mg (74 tablets) in dose pack TAKE PER PACKAGE DIRECTION S 08/20 completed Not Available Not Available Not Available OneTouch Delica Plus Lancet 30 gauge USE TO test fasting blood glucose DAILY active Not Available Not Available No t Available Trulicity 3 mg/0.5 mL subcutaneou s pen injector INJECT 3MG SUBCUTANE OUSLY ONCE WEEKLY FOR DIABETES 04/12 completed Not Available Not Available Not Available Semglee (insulin glargine-yf gn) Pen 100 unit/mL (3 mL) subcutaneou s Inject 20 units every day by subcutane ous route for 30 days. 2024 active Not Available Not Available Not Avai lable Paxlovid 300 mg (150 mg x 2)-100 mg tablets in a dose pack TAKE 300 MG Nirmatrel vir (TWO TABLETS) AND 100 MG ritonavir (ONE TABLET) by MOUTH together TWICE DAILY FOR FIVE DAYS. 08/20 completed Not Available Not Available Not Available Vitals Date Recorded Body height Body mass index (BMI) Body weight Oxygen saturation Oxygen saturation in Arterial blood by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
--- OUTSIDE RECORDS SUMMARY | 2024-09-17 13:38 | XMS_ITS | Encounter Summary ---
Author Organization [facility] Address [address] [place] [address] Care Team Providers Care Indirect Fire Infantryman Name Role Phone Delta Wade MD Primary Care Provider [phone] Encounter Details Date Type Department Care Team (Latest Contact Info) Description 08/04/2024 Results Follow-Up [facility] Emergency Department [address] [place] [address] Ayana Roman RN BLOOD CULTURE, BLOOD CULTURE Social History Tobacco Use Types Packs/Day Years [...] Never 06/13/2019 How often do you attend [facility] or nondenominational services? More than 4 times per year 06/13/2019 Do you belong to any clubs o r organizations such as hindu groups, unions, fraternal or athletic groups, or [...] who hurts you emotionally and/or physically? 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[employer] [employer] Gender Identity Not on file Sexual Orientation Not on file documented as of this encounter Plan of Treatment Upcoming Encounters Date Type Department Care Team (Late st Contact Info) Description 09/22/2024 10:00 AM CDT Office Visit [facility] [address] [place] [address] Jerson Salas, ANDERS [address] [place] [address] 10/06/2024 4:00 PM CDT Office Visit [facility] [address] [place] [address] Cristian Metcalf, RALEIGH [address] [place] [address] documented as of this encounter [...] Date Last Indicated Resolved Time R/O Respiratory 08/04/2024 08/04/2024 08/04/2024 5 :38 AM CDT R/O Respiratory 08/14/2024 08/14/2024 08/14/2024 8 :19 PM CDT R/O GI Pathogen 08/14/2024 08/14/2024 08/15/2024 6 :30 PM CDT RHINO/ENTEROVIRUS (Adult) 08/14/2024 08/14/2024 9:45 AM CDT R/O COVID-19 08/18/2024 08/18/2024 08/18/2024 4:00 AM CDT R/O COVID-19 08/20/2024 08/20/2024 08/20/2024 11:2 3 PM CDT R/O Respiratory 08/22/2024 08/22/2024 08/22/2024 5 :30 PM CDT R/O COVID-19 08/30/2024 08/30/2024 08/30/2024 3:49 AM CDT R/O Respiratory 09/12/2024 09/12/2024 09/13/2024 1 2:31 AM CDT R/O GI Pathogen 09/13/2024 09/13/2024 09/14/2024 8 :37 AM CDT documented as of this encounter Care Teams Indirect Fire Infantryman Relationship Specialty Start Date End Date Delta Wade MD [address] [address] PCP - General Family Practice 03/25/24 documented as of this encounter
--- OUTSIDE RECORDS SUMMARY | 2024-09-17 13:38 | XMS_ITS | Encounter Summary ---
Author Organization [facility] Address [address] [place] [address] Care Team Providers Care Data Processing Systems Project Planner Name Role Phone Delta Wade MD Primary Care Provider [phone] Reason for Visit * Reason Comments Hospital Follow Up Encounter Details Date Type Department Care Team (Late st Contact Info) Description 05/13/2024 Telephone [facility] Medicine [place] [address] [place] [address] Kay Lima, [facility] [address] [place] [address] Hospital Follow Up Social History Tobacco Use Types Packs/Day Years Used Date Smoking Tobacco: Former Cigarettes Q uit: 07/21/2022 Smokeless Tobacco: Never Alcohol Use Standard [...] any clubs o r organizations such as samaritan groups, unions, fraternal or athletic groups, or [...] who hurts you emotionally and/or physically? 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 Could not leave voicemail. If patient calls back please schedule for hospital follow up appointment for the next opening spot. Can be vv if patient cannot travel to clinic. CAGE ASSEMBLER * Telephone Encounter - Gypsy Gerber - 05/13/2024 12:02 PM CST Copied from [facility] #[id number]. Topic: Reschedule/Cancel Appointment/Late Arrival >> May 13, 2024 11:57 AM Gypsy Dawson wrote: Caller is requesting to reschedule/cancel a hospital follow up. Caller Name: Le Barnhart Callback Number: Telephone Information: Call Notes: Reschedule Hospital Follow up/ Patient said she couldn't make the appointment at one due to living two hours away. While looking for appointments she said I can't make it cancel it and disconnected the call. Unable to rescheduled hospital follow up with patient. Please call patient to reschedule. Is patient requesting to schedule? Yes Reschedule the appointment using the regular Cancel/Reschedule reasons. Could appointment be rescheduled within 5 calendar days of hospital discharge? 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 documented in this encounter Plan of Treatment Upcoming Encounters Date Type Department Care Team (Late st Contact Info) Description 09/22/2024 10:00 AM CDT Office Visit [facility] Neuro[facility] [address] [place] [address] Jerson Salas PA [address] [place] [address] 10/06/2024 4:00 PM CDT Office Visit [facility] Pulmonology [address] [place] [address] Cristian Metcalf FNP [address] [place] [id number] documented as of this encounter Goals Goal Patient Goal Type Associated Problems Recent Progress Patient-Stated? Author Heart Failure Goal Care Plan Heart Failure Problem No Latonya AnguianoMARGOT documented as of this encounter Visit Diagnoses Not on filedocumented in this encounter Additional Health Concerns Active Problems Noted Date Diagnosed Date Heart Failure Problem 05/12/2024 Infection Onset Date Last Indicated Resolved Time R/O COVID-19 05/13/2024 05/13/2024 05/14/2024 4:15 AM BIRDCAGE ASSEMBLER R/O Respiratory 06/30/2024 06/30/2024 06/30/2024 1 0:36 PM CDT R/O COVID-19 07/02/2024 07/02/2024 07/02/2024 9:56 PM CDT R/O Respiratory 07/22/2024 07/22/2024 07/22/2024 1 0:08 AM CDT R/O COVID-19 07/28/2024 07/28/2024 07/28/2024 3:40 PM CDT R/O Respiratory 07/28/2024 07/28/2024 07/28/2024 4 :53 PM CDT R/O COVID-19 08/02/2024 08/02/2024 08/02/2024 10:0 4 PM CDT R/O Respiratory 08/04/2024 08/04/2024 08/04/2024 5 :38 [...] documented as of this encounter Care Teams Data Processing Systems Project Planner Relationship Specialty Start Date End Date Delta Wade MD [address] [address] PCP - General Family Practice 03/25/24 documented as of this encounter
--- OUTSIDE RECORDS SUMMARY | 2024-09-17 13:38 | XMS_ITS | CCD ---
Author Name Interface, [id number] Address [facility] [place] [address] [facility] Address [address] [place] [address] Care Team Providers Care Cycle Director Name Role Phone Anika VALLADARES, Allen Unavailable Unavailable Allergies and Adverse Reactions Reason for Visit Medications Problems Social History
--- OUTSIDE RECORDS SUMMARY | 2024-09-17 13:38 | XMS_ITS | Encounter Summary ---
Author Organization [facility] Address [address] [place] [address] Care Team Providers Care Cartography Professor Name Role Phone Delta Wade MD Primary Care Provider [phone] Encounter Details Date Type Department Care Team (Late st Contact Info) Description 06/16/2024 Telephone [facility] Ophthalmology [address] [place] [address] Eduardo Craven MD [address] [place] [address] Social History Tobacco Use Types Packs/Day Years [...] How often do you attend chur or pentecostalism services? 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 documented in this encounter Plan of Treatment Upcoming Encounters Date Type Department Care Team (Late st Contact Info) Description 09/22/2024 10:00 AM CDT Office Visit [facility] [address] [place] [address] Jerson Salas, ANDERS [address] [place] [address] 10/06/2024 4:00 PM CDT Office Visit [facility] [address] [place] [address] Cristian Metcalf, RALEIGH [address] [place] [address] documented as of this encounter Goals Goal Patient Goal Type Associated Problems Recent Progress Patient-Stated? Author Heart Failure Goal Care Plan Heart Failure Problem Latonya Ashton LPN documented as of this encounter Visit Diagnoses Not on filedocumented in this encounter Additional Health Concerns Active Problems Noted Date Diagnosed Date Heart Failure Problem 05/12/2024 Infection Onset Date Last Indicated Resolved Time R/O Respiratory 06/30/2024 06/30/2024 06/30/2024 1 0:36 [...] documented as of this encounter Care Teams Cartography Professor Relationship Specialty Start Date End Date Delta Wade MD [address] [place] [address] PCP - General Family Practice 03/25/24 documented as of this encounter
--- OUTSIDE RECORDS SUMMARY | 2024-09-17 13:38 | XMS_ITS | Patient Health Record ---
Author Organization [facility] Address [address] [place] [address] Care Team Providers Care It Application Architect Name Role Phone Delta Wade Primary Care Provider Unavailabl Jose Cruz Callejas Unavailable [phone] Yakov Sanon Unavailable [phone] Marcia Perez Unavailable [phone] Gregorio Montes Unavailable [phone] Annetta oLndon Unavailable [phone] Masoud Bello Unavailable [phone] Acacia Gaines Unavailable [phone] Hannah Rai Unavailable [phone] Allergies Allergen (clinical drug ingredient) Drug/Non Drug Allergy documented on EMR Reaction Allergy Type Onset Date Status Compazine Unknown Drug Allergy Active ketorolac Ketorolac Unknown Drug Allergy Active Results Component Value Reference Range Notes Schedule Confirmation Reviewed date:07/03/2024 04:23:35 PM Interpretation: Performing Lab: Notes/Report: CT Chest ION Endoluminal NM HB Scan w/ejection fracti on- Reviewed date:01/05/2024 04:37:06 PM Interpretation: Performing Lab: Notes/Report: See Below For Report NM HB Scan w/ejection fraction 2407 @ 2313 Read See Below For Report NM HB Scan w/ejection fracti on-[id number] Reviewed date:01/05/2024 04:36:45 PM Interpretation: Performing Lab: Notes/Report: [id number]=iSite Echo Complete [id number] Reviewed date:11/30/2023 12:41:13 PM Interpretation: Performing Lab: Notes/Report: Cardiopulmonary Services Name: GIANFRANCO DIAZ Study Date: 11/27/2023 : 1965 [facility]:[id number] Patient Location: 3WST Age: 58 yrs Gender: Female Height: 64 in Weight: 203 lb BP: 159/75 mmHg BSA: 2.0 m2 Reason For Study: eval lv fct Interpretation Summary Left ventricular systolic function is low normal. Left Ventricular Function is estimated to be 50-55%. There are regional wall motion abnormalities as specified. The left ventricle is borderline dilated. There is mild mitral regurgitation. Left Ventricle The left ventricle is borderline dilated. There is normal left ventricular wall thickness. Left ventricular systolic function is low normal. Left Ventricular Function is estimated to be 50-55%. There are regional wall motion abnormalities as specified. There is inferior wall akinesis. Right Ventricle The right ventricle is normal in size and function. Atria The left atrial size is normal. Right atrial size is normal. Great Vessels The aortic root is normal size. Pericardium/Pleural There is no pericardial effusion. There is no pleural effusion. Mitral Valve There is mild mitral regurgitation. Aortic Valve The aortic valve opens well. Tricuspid Valve The tricuspid valve is not well visualized, but is grossly normal. Pulmonic Valve The pulmonic valve is not well visualized. MMode/2D Measurements \&\ Calculations IVSd: 1.2 cm LVIDd: 5.6 cm FS: 25.3 % LVIDs: 4.2 cm EDV(Teich): 153.2 ml LVPWd: 1.2 cm ESV(Teich): 77.6 ml EF(Teich): 49.3 % Ao root diam: 3.3 cm asc Aorta Diam: 3.1 cm LVOT diam: 2.2 cm Ao root area: 8.3 cm2 LVOT area: 3.9 cm2 LA dimension: 3.9 cm RA A4Cs_phl: 11.6 cm2 Doppler Measurements \&\ Calculations MV E max reynaldo: 81.3 cm/sec MV dec time: 0.15 sec Ao V2 max: 147.0 cm/sec MV A max reynaldo: 67.1 cm/sec Ao max P.6 mmHg MV E/A: 1.2 Ao V2 mean: 97.4 cm/sec Lat Peak E E/E Lateral E/e Med Peak E LIDA(V,D): 2.6 cm2 LV V1 max P.8 mmHg SV(LVOT): 71.4 ml AV VR_phl: 0.67 LV V1 mean P.0 mmHg LIDA(VTI)/BSA_phl: 1.3 LV V1 max: 98.1 cm/sec LV V1 mean: 63.0 cm/sec LV V1 VTI: 18.1 cm E/E Measurements from QLAB LV GLS Endo Peak A2C ():LV GLS Endo Peak A3C (): LV GLS Endo Peak A4C (): -14.9 % -16.5 % -13.7 % LV GLS Endo Peak Avg (): -15.1 % Ordering Physician: Abel Arriaga Referring Physician: Nimesh Ochoa Performed By: Alexandra Herrera RCS Schedule Confirmation Reviewed date:11/30/2023 12:40:58 PM Interpretation: Performing Lab: Notes/Report: Heart Cath Lt poss PTCA Schedule Confirmation Reviewed date:11/30/2023 12:40:58 PM Interpretation: Performing Lab: Notes/Report: Heart Cath Lt poss PTCA zzzHeart Cath Lt poss PTCA Reviewed date:11/30/2023 12:41:13 PM Interpretation: Performing Lab: Notes/Report: [id number]=iSite Echo Complete [id number] Reviewed date:11/30/2023 12:41:13 PM Interpretation: Performing Lab: Notes/Report: [id number]=iSite Schedule Confirmation Reviewed date:07/04/2024 04:08:48 PM Interpretation: Performing Lab: Notes/Report: CT Chest ION Endoluminal zzzHeart Cath Lt poss PTCA Reviewed date:11/30/2023 12:40:58 PM Interpretation: Performing Lab: Notes/Report: See Below For Report This report was dictated outside of the SpareTime system. 3523 @ 0100 Read See Below For Report Schedule Confirmation Reviewed date:07/13/2024 07:16:00 PM Interpretation: Performing Lab: Notes/Report: CT Chest ION Endoluminal Schedule Confirmation Reviewed date:07/03/2024 04:23:35 PM Interpretation: Performing Lab: Notes/Report: CT Chest ION Endoluminal zzzHeart Cath Lt poss PTCA Reviewed date:05/16/2024 05:08:19 PM Interpretation: Performing Lab: Notes/Report: See Below For Report This report was dictated outside of the SpareTime system. trop 2nd@ 205 3510 @ 0021 Read See Below For Report Schedule Confirmation Reviewed date:05/16/2024 05:08:19 PM Interpretation: Performing Lab: Notes/Report: Heart Cath Lt poss PTCA Schedule Confirmation Reviewed date:05/16/2024 05:08:19 PM Interpretation: Performing Lab: Notes/Report: Heart Cath Lt poss PTCA zzzHeart Cath Lt poss PTCA Reviewed date:05/16/2024 05:08:19 PM Interpretation: Performing Lab: Notes/Report: [id number]=iSite Partial Thromboplastin Time 04913 Reviewed date:05/16/2024 05:08:19 PM Interpretation: Performing Lab: Notes/Report: trop 2nd@ 205 3510 @ 0021 3510 @ 0021 PTT 27.1 22.6-31.8 SEC Therapeutic Range: 60-100. Critical Value Starting at > 100. Prothrombin Time 44392 Reviewed date:05/16/2024 05:08:19 PM Interpretation: Performing Lab: Notes/Report: trop 2nd@ 205 3510 @ 0021 3510 @ 0021 ProTime 10.8 9.1-11.9 SEC Normal Range: 9.1-11.9 INR 1.02 .90-1.20 Therapeutic Range: 2.0-3.0 Therapaeutic Range for heart valve replacement: 2.5-3.50 Reason For Referral Reason COPD; 06/07: 1 wk pe r Eula 06/07: Left Message SCHEDULED 06/20 @ 2:10 PM Diagnosis 1 Chronic obstructive pulmonary disease, unspecified (J44.9) Referring Provider First Name ER Referring Provider Last Name [facility] Referring Provider Speciality Emergency Medicine Referred Organization [facility] Referred Provider Jose Cruz Landry Referred Address [address] [place] [address] [place],[address], Referred Provider Specialty Pulmonary Di seases General Notes Joselin Lopez 025 03:08:20 PM >06/06: Gave Report to PRVDR to review, Joselin Lopez 06/07/2024 12:13:32 PM >06/07: wk per John landry Marie 06/07/2024 02:24:10 PM >06/07: Left Message, Adelaida Wylie 06/08/2024 10:26:47 AM >SCHEDULED 06/20 @ 2:10 PM Referral Priority Stat Medications Medication SIG (Take, Route, Frequency, Duration) [...] EVERY DAY Oral for 30 Days Active Immunizations Vaccine Route Administration Date Status Comme nts Influenza (whole), CPT 68725 Inactive Unknown 01/04/2024 Administered Social History Tobacco Use: Social History Observation Description Date Details (start date - stop date) Former Smoker NA - NA Tobacco Control (Standard) Question Answer Notes Tobacco use: Former smoker How long has it been since you last smoked? 1-5 years Problems Problem Type SNOMED Code ICD Code Onset Dates Problem Status W/U Status Risk Notes Problem 85399015783825299 Nicotine dependence, cigarettes, in remission (F17.211) Active confirmed Problem Ischemic cardiomyopathy (192377077) Ischemic cardiomyopathy (I25.5) Active confirmed Problem Chronic obstructive pulmonary disease (93242860) Chronic obstructive pulmonary disease, unspecified (J44.9) Active confirmed Problem Gastro-esophageal reflux disease without esophagitis (121685314) Gastro-esophageal reflux disease without esophagitis (K21.9) Active confirmed Problem C-reactive protein abnormal (733565711) Elevated C-reactive protein (CRP) (R79.82) Active confirmed Problem 324680587 Solitary pulmona ry nodule (R91.1) Active confirmed Problem Long-term current use of anticoagulant (744619548) 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 (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.01) Active confirmed Problem Atherosclerotic heart disease of [place] coronary artery without angina pectoris (598260473124246) Arteriosclerosis of coronary artery (I25.10) Active confirmed Problem H/O heart artery stent (Z95.5) Active confirmed Problem Long-term current use of anticoagulant (648373927) Anticoagulated (Z79.01) Active confirmed Problem Angina (998433220) Atheroscleros is of [place] coronary artery of [place] heart with angina pectoris (I25.119) Active confirmed Problem Acute non-ST segment elevation myocardial infarction (860068305) Non-ST elevated myocardial infarction (I21.4) Active confirmed Problem History of pulmonary embolus (191919137) Hx of pulmonary embolus (Z86.711) Active confirmed Problem Coronary stent patent (560966543) Coronary stent patent (Z95.5) Active confirmed Problem 361580907 Chronic hypoxic respiratory failure (J96.11) Active confirmed Vital Signs Heart Rate 90 /min 06/20/2024 Temperature 98.6 degrees Fahrenheit 06/20/2024 Respiratory Rate 20 /min 06/20/2024 Blood pressure diastolic 83 mm Hg 06/20/2024 Oximetry 93 % 06/20/2024 Height-cm 162.56 cm 06/20/2024 Weight-kg 97 kg 06/20/2024 Height 64 in 06/20/2024 Blood pressure systolic 120 mm Hg 06/20/2024 Weight 213.85 lbs 06/20/2024 BMI 36.7 kg/m2 06/20/2024 Procedures Procedure Date Ordered Date Performed Result Body Sit e PFT with FRC: (NO TGV) 06/20/2024 N/A Encounters Encounter Location Date Provider Diagnosis [facility] [address] [place] [address] 09/22/2023 [facility] [address] [place] [address] 09/23/2023 [facility] [address] [place] [address] 02/17/2024 Gregorio Montes [facility] [place] [address] [place] [address] 06/06/2024 Masoud Bello Other fracture of unspecified lumbar vertebra, initial encounter for closed fracture S32.008A [facility] [address] [place] [address] [place] [address] 06/30/2024 Jose Cruz Landry [facility] [address] [place] [address] 10/01/2023 Yakov Sanon Acute pain of left shoulder M25.512 [facility] [address] [place] [address] [place] [address] 06/20/2024 Jose Cruz Eula Solitary pulmonary nodule R91.1 ; Chronic hypoxic respiratory failure J96.11 ; Nicotine dependence, cigarettes, in remission F17.211 and Shortness of breath R06.02 Assessments Encounter Date Diagnosis (ICD Code) Assessment Notes Treatment Notes Treatment Clinical Notes Section Notes 06/20/2024 Solitary pulmonary nodule (ICD-10 - R91.1) I have discussed with patient treatement options of CT guided needle biopsy vs robotic navigational bronchoscopy. Risk of pneumothorax discussed with each procedure. Patient has opted for robotic navigational bronchoscopy. I will schedule this for July 08, 2024. Obtain ION CT endoluminal. 06/20/2024 Chronic hypoxic respiratory failure (ICD-10 - J96.11) Continue nasal cannula to maintain a saturation above 89% given history of heart failure. 06/06/2024 Other fracture of unspecified lumbar vertebra, initial encounter for closed fracture (ICD-10 - S32.008A) 10/01/2023 Acute pain of left shoulder (ICD-10 - M25.512) Discussed w/ pt once she gets over the acute pain, we will have start physical therapy. Patient to rest her shoulder and continue wearing sling. Typicaly I would start a NSAID, however I am unable to due to her taking Warfarin. RTC 2 weeks. 06/20/2024 Nicotine dependence, cigarettes, in remission (ICD-10 - F17.211) Patient smoked a [id number] for 45 years. She has been abstinent for a year now. 06/20/2024 Shortness of breath (ICD-10 - R06.02) Obtain PFT. 07/19/2024 Other Edward, Jolene Toussaint, am scribing for, and in the presence of Dr. Jose Cruz Landry. I, Dr. Jose Cruz Landry, personally performed the services described in this documentation, as scribed by Jolene Toussaint in my presence, and it is both accurate and complete. 06/20/2024 Other I, Jolene Toussaint, am scribing for, and in the presence of Dr. Jose Cruz Landry. I, Dr. Jose Cruz Landry, personally performed the services described in this documentation, as scribed by Jolene Toussaint in my presence, and it is both accurate and complete. Plan Of Treatment Pending Test Test Name Order Date Lumbosacral Spine AP/Lat-27757 5 PFT with FRC: (NO TGV) 06/20/2024 CT Chest ION Endoluminal-35307 5 Insurance Providers Payer Name Payer Address Payer Phone Subscriber Number Group Number Insured Name Patient Relationship to Insured Coverage Start Date Coverage End Date [place] [address] [place] [address] [id number] GIANFRANCO DIAZ Self - patient is the insured Medical (General) History Medical History History ICD Code measles mumps Chicken Pox whooping cough (pertussis) Pneumonia Heart Disease diabetes mellitus High Blood Pressure asthma cancer Heart Disease Back Trouble Surgical History Surgery Date(Month/Year) Breast NSTEMI (non-ST elevated myocardial infar ction 04.04.2024 spleen 05/2023 Hospitalization History Reason Date(Month/Year) NSTEMI (non-ST elevated myocardial infar ction 04.04.2024 speen 05/2023
--- OUTSIDE RECORDS SUMMARY | 2024-09-17 13:38 | XMS_ITS | Clinical Summary ---
Author Organization [facility] Address [address] [place] [address] Phone Care Team Providers Care Laboratory Phlebotomist Name Role Phone Delta Wade MD Primary Care Provider [phone] Allergies Active Allergy Reactions Criticality Noted Date Comments Codeine Itching Low 09/10/2018 Ketorolac Tromethamine Hives High 04/04/2008 Prochlorperazine Hives,Seizure High 07/02/2014 Propoxyphene Nausea and Vomiting High 07/02/2014 Propoxyphene N-Acetaminophen Nausea and Vomiting Low 08/03/2007 Tramadol Hives High 09/26/2019 Medications OneTouch Delica Plus Lancet 30 gauge USE TO test fasting blood glucose DAILY 11/05/19 23 Active Blood-Glucose Meter KitIndications: Type 2 diabetes mellitus without complication, without long-term current use of insulin ([facility]) Use to test blood glucose up to TID PRN symptoms. 1 Each 12/03/19 23 Active blood sugar diagnostic StripIndication s:Type 2 diabetes mellitus without complication, without long-term current use of insulin ([facility]) Use to test blood glucose up to QID PRN symptoms. 100 Each 11 12/18/19 Active TechLITE Pen Needle 29 gauge x 1/2 Needle USE directed with Victoza. 12/30/19 Active naloxone (NARCAN) 4 mg/spray [place], Non-Aerosol EMERGENCY USE ONLY: Administer 1 spray (4 mg) in one nostril one time. May repeat in alternating nostrils every 2-3 min until responsive or EMS arrives. 2 Each 3 01/07/20 23 Active portable oxygenIndicatio ns:Chronic obstructive pulmonary disease, unspecified COPD type (CMS/HCC),Oxyge n dependent Face to Face completed within 30 days: yes Length of Need: 99 months By: Nasal Cannula Continuously at 3 L/min. 1 Each 08/27/19 24 Active promethazine-de xtromethorphan (PHENERGAN-DM) 6.25-15 mg/5 mL syrup Take 10 mL by mouth every 4 hours as needed for Cough. 12/02/19 24 Active buPROPion HCL (WELLBUTRIN XL) 300 mg Extended Release 24 hour tablet Take 1 Tablet by mouth daily. 01/19/20 24 Active fluorouraciL (EFUDEX) 5 % Cream APPLY TO AFFCETED AREA TWICE A DAY FOR 4 WEEKS 02/01/20 24 Active warfarin (COUMADIN) 10 mg tablet Take 1 Tablet by mouth daily. 03/22/20 24 Active LORazepam (ATIVAN) 0.5 mg tabletIndicatio ns:Anxiety state Take 1 Tablet (0.5 mg) by mouth every 8 hours as needed for Anxiety. 20 Tablet 04/11/19 25 Active OLANZapine (ZyPREXA) 10 mg tablet Take 10 mg by mouth daily at bedtime. 04/12/19 25 Active aspirin (CARTER CHEWABLE) 81 mg Tablet, Chewable Take 81 mg by mouth daily. Active amLODIPine (NORVASC) 2.5 mg tablet Take 2.5 mg by mouth late in the day. 03/30/19 24 Active atorvastatin (LIPITOR) 40 mg tablet Take 40 mg by mouth daily at bedtime. 05/13/19 24 Active FLUoxetine (PROzac) 40 mg capsule Take 40 mg by mouth daily at bedtime. 03/30/19 24 Active potassium CHLORIDE (KLOR-CON) 10 mEq Extended Release tablet Take 1 Tablet by mouth daily. 05/09/19 25 Active tiZANidine (ZANAFLEX) 2 mg Tablet Take 2 mg by mouth every 8 hours as needed. 05/13/19 24 Active nitroglycerin (NITROSTAT) 0.4 mg Tablet, Sublingual Place 0.4 mg under tongue. 05/19/19 25 Active isosorbide mononitrate (IMDUR) 30 mg Extended Release 24 hour tabletIndicatio ns:Chest pain, unspecified type,Congestive heart failure, unspecified HF chronicity, unspecified heart failure type (CMS/HCC) TAKE 1 TABLET BY MOUTH EVERY DAY 30 Tablet 1 07/06/19 Active oxyCODONE-aceta minophen (PERCOCET) 5-325 mg tablet Take 1 Tablet by mouth every 6 hours as needed. Active Ventolin HFA 90 mcg/actuation inhaler Take 2 Puffs by inhalation every 6 hours as needed. Active insulin lispro (HumaLOG,ADMELO G) 100 unit/mL pen syringe Inject 14 Units by subcutaneous injection 3 times daily with meals. 08/07/19 25 Active Lantus Solostar U-100 Insulin 100 unit/mL (3 mL) solution for injection Inject 25 Units by subcutaneous injection daily at bedtime. 08/07/19 25 Active oxygen home delivery Home Oxygen Concentrator yes at 3 L/M Rest, 3 L/M Activity, 3 L/M Sleep, Delivery Device: Nasal Cannula Portability: yes, 3 L/M Rest, L/M Activity, May provide device best for patient needs(E system,home fill, conserving device) Length of Need: 99 months 1 Each 08/07/19 25 Active triamcinolone acetonide (KENALOG) 0.1 % OintmentIndicat ions:Dermatitis Apply to affected area 2 times daily as needed for Other (See Comment) (rash). 10 Gram 08/17/19 25 Active levalbuterol (XOPENEX) 1.25 mg/3 mL Solution for Nebulization Take 1.25 mg by inhalation every 6 hours as needed for Shortness of Breath or Wheezing. 07/26/19 25 Active ipratropium-alb uteroL (DUONEB) 0.5 mg-3 mg(2.5 mg base)/3 mL Solution for Nebulization Take 3 mL by inhalation every 6 hours as needed for Shortness of Breath. 60 Each 1 08/27/19 25 2024 Active ranolazine ER (RANEXA) 500 mg Extended Release 12 hour tablet Take 1 Tablet (500 mg) by mouth every 12 hours. 60 Tablet 1 08/28/19 25 2024 Active budesonide 160 mcg-glycopyr 9 mcg-formot 4.8 mcg/actuation HFA inhaler Take 2 Puffs by inhalation 2 times daily. 60 Each 1 08/27/19 25 2024 Active ipratropium-alb uteroL (DUONEB) 0.5 mg-3 mg(2.5 mg base)/3 mL Solution for Nebulization Take 3 mL by inhalation every 4 hours as needed for Shortness of Breath. 300 mL 1 09/11/19 25 Active Nebulizer & Compressor For Neb Device every 4 hours as needed for Other (See Comment) (shortness of breath). 1 Each 09/11/19 25 Active furosemide (LASIX) 40 mg tablet Take 1 Tablet (40 mg) by mouth daily. 30 Tablet 1 09/17/19 Active predniSONE (DELTASONE) 20 mg tablet Take 2 Tablets (40 mg) by mouth daily with breakfast for 3 days, THEN 1.5 Tablets (30 mg) daily with breakfast for 3 days, THEN 1 Tablet (20 mg) daily with breakfast for 3 days, THEN 0.5 Tablets (10 mg) daily with breakfast for 3 days. 15 Tablet 09/16/19 25 2024 Active azithromycin (ZITHROMAX) 250 mg tablet Take 2 Tablets (500 mg) by mouth daily for 1 day, THEN 1 Tablet (250 mg) daily for 4 days. 6 Tablet 09/16/19 25 2024 Active sertraline (ZOLOFT) 50 mg tablet Take 1 Tablet by mouth daily. 01/03/20 24 2024 Discontinued rOPINIRole (REQUIP) 0.5 mg tablet Take 0.5 mg by mouth daily at bedtime. 12/14/19 24 2024 Discontinued tiotropium (Spiriva with HandiHaler) 18 mcg capsule Take 18 mcg by inhalation daily. 06/28/19 25 2024 Discontinued Anoro Ellipta 62.5-25 mcg/actuation Disk with Device Take 1 Puff by inhalation daily. 1 Each 1 07/26/19 25 2024 Discontinued ipratropium-alb uteroL (DUONEB) 0.5 mg-3 mg(2.5 mg base)/3 mL Solution for Nebulization Take 3 mL by inhalation every 6 hours as needed for Shortness of Breath. 50 Each 1 07/26/19 25 2024 Discontinued fluticasone-ume clidinium-vilan terol (TRELEGY ELLIPTA) 100-62.5-25 mcg Disk with Device Take 1 Puff by inhalation daily. 60 Each 08/07/19 25 2024 Discontinued empagliflozin (Jardiance) 10 mg tablet Take 1 Tablet (10 mg) by mouth daily in the morning. 30 Tablet 08/07/19 25 2024 furosemide (LASIX) 40 mg tablet Take 1 Tablet (40 mg) by mouth 1 time daily as needed for Other (See Comment) (Please take up to once per day if you gain more than 3 pounds in 1 day, more than 5 pounds in 1 week.). 7 Tablet 08/17/19 25 2024 Discontinued predniSONE (DELTASONE) 20 mg tablet Take 2 Tablets (40 mg) by mouth daily with breakfast for 5 days. 10 Tablet 08/20/19 25 2024 Discontinued furosemide (LASIX) 40 mg tablet Take 1 Tablet (40 mg) by mouth 1 time daily as needed for Other (See Comment) (Please take up to once per day if you gain more than 3 pounds in 1 day, more than 5 pounds in 1 week.). 7 Tablet 08/27/19 25 2024 predniSONE (DELTASONE) 20 mg tablet Take 2 Tablets (40 mg) by mouth daily with breakfast for 3 days, THEN 1.5 Tablets (30 mg) daily with breakfast for 3 days, THEN 1 Tablet (20 mg) daily with breakfast for 3 days, THEN 0.5 Tablets (10 mg) daily with breakfast for 3 days. 15 Tablet 08/28/19 25 2024 Discontinued predniSONE (DELTASONE) 20 mg tablet Take 2 Tablets (40 mg) by mouth daily with breakfast for 3 days, THEN 1.5 Tablets (30 mg) daily with breakfast for 3 days, THEN 1 Tablet (20 mg) daily with breakfast for 3 days, THEN 0.5 Tablets (10 mg) daily with breakfast for 3 days. 15 Tablet 08/31/19 25 2024 Discontinued predniSONE (DELTASONE) 20 mg tablet Take 1 Tablet (20 mg) by mouth 2 times daily with meals. 10 Tablet 09/11/19 25 2024 Discontinued azithromycin (ZITHROMAX) 250 mg tablet Take 2 Tablets (500 mg) by mouth daily for 1 day, THEN 1 Tablet (250 mg) daily for 4 days. 6 Tablet 09/11/19 25 2024 Discontinued Hospital, Clinic, or Other Facility Administered Medication Ordered Dose Route Frequency Start Date End Date Status proparacaine (OPTHAINE) 0.5 % ophthalmic solution 2 DropIndications:Vitre ous hemorrhage of right eye (CMS/HCC) 2 Drop Both Eyes ONE TIME ONLY 09/06/2024 Ac tive tropicamide (MYDRIACYL) 1 % ophthalmic solution 1 DropIndications:Vitre ous hemorrhage of right eye (CMS/HCC) 1 Drop Both Eyes ONE TIME ONLY 09/06/2024 Ac tive phenylephrine 2.5 % ophthalmic solution 1 DropIndications:Vitre ous hemorrhage of right eye (CMS/HCC) 1 Drop Both Eyes ONE TIME ONLY 09/06/2024 Ac tive fluorescein (AK-ABHI, FLUORESCITE) 500 mg/5 mL (10 %) injection 1 mLIndications:Vitreou s hemorrhage of right eye (CMS/HCC) 1 mL IV ONE TIME ONLY 09/06/2024 Active sodium chloride 0.9% vial - DILUENTIndications:Vi treous hemorrhage of right eye (CMS/HCC) 3 mL IV ONE TIME ONLY 09/06/2024 Ac tive Active Problems Problem Noted Date Diagnosed Date [...] 06/14/2019 H/O vaginal surgery 06/14/2019 Atherosclerosis of [place] co ronary artery of [place] heart without angina pectoris 06/14/2019 Urinary incontinence 07/30/2011 Former smoker 12/16/2010 Primary hereditary hemochromatosis 12/13/2010 Liver masses 06/05/2010 Bipolar affective disorder 05/08/2010 Hypertension 05/08/2010 Insomnia 05/08/2010 Type 2 diabetes mellitus wit hout complication, without long-term current use of insulin Resolved Problems Problem Noted Date Diagnosed Date [...] with depression 08/22/201011/21 Anxiety state 05/08/2010 12/02/2022 Encounters Date Type Department Care Team Description 09/16/2024 11:40 PM CDT - 09/16/2024 11:41 PM CDT Emergency [facility] Emergency Department [address] [place] [phone] Discharge Disposition: Left without being seen 09/12/2024 9:13 PM CDT - 09/15/2024 12:26 PM CDT Hospital Encounter [facility] 4B Cardiac [address] [place] [address] Robbie Yen, DO Baig, MD Esperanza Soto, MD La Perez, Michael Mathew MD COPD exacerbation ([facility]/HCC) Discharge Disposition: Home or Self Care 09/10/2024 8:59 PM CDT - 09/11/2024 12:42 AM CDT Emergency [facility] Emergency Department [address] [place] [phone] Layton Barrow MD Chronic hypoxemic respiratory failure ([facility]) (Primary Dx); Type 2 diabetes mellitus with hyperglycemia, with long-term current use of insulin ([facility]); Pulmonary emphysema, unspecified emphysema type ([facility]) Discharge Disposition: Home or Self Care 09/10/2024 12:46 PM CDT - 09/10/2024 11:59 PM CDT Hospital Encounter [facility] [address] [place] [address] Don Causey DO Discharge Disposition: Home or Self Care 09/10/2024 11:40 AM CDT - 09/10/2024 11:59 PM CDT Hospital Encounter [facility] [place] [address] [place] [address] Don Causey, Discharge Disposition: Home or Self Care 09/09/2024 10:42 PM CDT - 09/09/2024 10:46 PM CDT Emergency [facility] Emergency Department [address] [place] [phone] Discharge Disposition: Left without being seen 09/09/2024 5:38 AM CDT - 09/09/2024 12:01 PM CDT Emergency [facility] Emergency Department [address] [place] [phone] Cassius Sanderson MD Acute on chronic congestive heart failure, unspecified heart failure type ([facility]) (Primary Dx) Discharge Disposition: Home or Self Care 09/09/2024 Travel 09/01/2024 Orders Only [facility] [address] [place] [phone] Jerson Salas PA Closed fracture of first lumbar vertebra, unspecified fracture morphology, initial encounter ([facility]) (Primary Dx) 08/29/2024 7:55 PM CDT - 08/30/2024 2:43 PM CDT Emergency [facility] Emergency Department [address] [place] [phone] Danitza Wayne MD Mady, Mohamed Hamdy Ahmed Mohamed, MD COPD with exacerbation ([facility]) (Primary Dx) Discharge Disposition: Home or Self Care 08/23/2024 [facility]phone [facility] [address] [place] [phone] Veronika Yusuf RN Anticoagulation 08/22/2024 4:18 PM CDT - 08/26/2024 6:26 PM CDT Hospital Encounter [facility] 4A Cardiac [address] [place] [phone] Austni Robertson MD Abbas, MD Lacie Soto Abhaya, MD COPD exacerbation ([facility]) Discharge Disposition: Home or Self Care 08/22/2024 Travel 08/20/2024 9:19 PM CDT - 08/20/2024 9:22 PM CDT Emergency [facility] Emergency Department [address] [place] [phone] Discharge Disposition: Left without being seen 08/20/2024 Travel 08/18/2024 2:20 AM CDT - 08/18/2024 3:03 PM CDT Hospital Encounter [facility] 4B Cardiac [address] [place] [address] Danny Mclean MD Gibert, MD Safia Lagunas, MD La Soto, Michael Mathew MD Back pain Discharge Disposition: Home or Self Care 08/16/2024 Telephone [facility] [address] [place] [address] Veronika Yusuf, RN Anticoagulation 08/14/2024 6:00 PM CDT - 08/16/2024 1:22 PM CDT Hospital Encounter [facility] 4B Cardiac [address] [place] [address] Aki Booth, DO Baig, MD Rajesh Soto Lisa K, MD Kaur, MD Trini Closed compression fracture of body of L1 vertebra (CMS/HCC) Discharge Disposition: Home or Self Care 08/07/2024 8:18 PM CDT - 08/07/2024 8:45 PM CDT Emergency [facility] Emergency Department [address] [place] [address] Discharge Disposition: Left Against Medical Advice 08/05/2024 Telephone [facility] [address] [place] [address] Veronika Yusuf, RN Anticoagulation 08/04/2024 3:41 AM CDT - 08/06/2024 4:06 PM CDT Hospital Encounter [facility] 7B Medical Surgical [address] [place] [address] Danny Mclean MD Abbas, MD Alirio Soto, MD Regi Phelps, Kapil Johnson, Acute on chronic respiratory failure with hypoxia and hypercapnia (CMS/HCC) Discharge Disposition: Home or Self Care 08/04/2024 Results Follow-Up [facility] Emergency Department [address] [place] [phone] Ayana Roman, RN BLOOD CULTURE, BLOOD CULTURE 08/04/2024 Travel 08/02/2024 8:48 PM CDT - 08/03/2024 3:51 AM CDT Emergency [facility] Emergency Department [address] [place] [phone] Dung Bui MD Shortness of breath (Primary Dx); Bilateral arm pain Discharge Disposition: Home or Self Care 08/02/2024 Travel 07/29/2024 Telephone [facility] [address] [place] [phone] Veronika Yusuf, RN Anticoagulation 07/28/2024 3:26 PM CDT - 07/31/2024 11:57 AM CDT Hospital Encounter [facility] 6B Medical Surgical [address] [place] [address] Aki Briceno, Efraín Keys, Jennifer Tamez MD Pneumonia of left lower lobe due to infectious organism Discharge Disposition: Home or Self Care 07/28/2024 Travel 07/22/2024 Telephone [facility] [address] [place] [phone] Veronika Yusuf, RN Anticoagulation 07/21/2024 1:24 PM CDT - 07/25/2024 3:15 PM CDT Hospital Encounter [facility] 6B Medical Surgical [address] [place] [phone] Abel Singletary MD Abbas, Muhammad Khalid, MD Syed, Hejab, MD COPD exacerbation ([facility]) Discharge Disposition: Home or Self Care 07/20/2024 6:10 PM CDT Anesthesia Event [facility] Operating Room [address] [place] [phone] Aki Garcia MD 07/20/2024 5:10 PM CDT - 07/20/2024 6:14 PM CDT Surgery [facility] Operating Room [address] [place] [address] Tereso Gil, DPPio TOE(S) ARTHROPLASTY 07/20/2024 1:44 PM CDT - 07/20/2024 7:52 PM CDT Hospital Encounter [facility] 3J Pre-Op [address] [place] [address] Tereso Gil, DPM Hammertoe of left foot Discharge Disposition: Home or Self Care 07/19/2024 Telephone [facility] [place] [address] [place] [address] Tereso Gil, DPM Information (PRE-OP INSTRUCTIONS AND ARRIVAL TIME) 07/19/2024 Telephone [facility] [place] [address] [place] [address] Tereso Gil DPM Information (SX INFO INQUIRY) 07/18/2024 4:35 PM CDT - 07/19/2024 4:54 PM CDT Hospital Encounter [facility] 4A Cardiac [address] [place] [address] Danny Velasquez MD Sundaram, Vignesh, MD Mady, Mohamed Hamdy Ahmed Mohamed, MD Acute respiratory distress Discharge Disposition: Home or Self Care 07/18/2024 Telephone [facility] [place] [address] [address] Tereso Gil, DPM Information (RETURNING CALL TO PT) 07/14/2024 8:33 AM CDT - 07/16/2024 12:41 PM CDT Hospital Encounter [facility] 4C Medical [address] [place] [address] Abel Singletary MD Sohail, MD Margot Klein, Harinderjeet, MD Byron, Jorge S, MD Cellulitis of right lower extremity Discharge Disposition: Home or Self Care 07/14/2024 Telephone [facility] [place] [address] [place] [phone] Tereso Gil, DPM Information (NOTIFY PT OF SX DATE CHANGE) 07/14/2024 Telephone [facility] [place] [address] [place] [phone] Tereso Gil, DPM Information (RESCHED SX/ PRE-OP INSTRUCTIONS AND ARRIVAL TIME) 07/14/2024 Travel 07/13/2024 Telephone [facility] [place] [address] [place] [phone] Tereso Gil, DPM Information (TO RESCHED SX) 2024 12:27 PM CDT - 2024 11:59 PM CDT Hospital Encounter [facility] Imaging [facility] [address] [place] [address] Jose Cruz Sanchez MD Discharge Disposition: Home or Self Care 2024 11:57 AM CDT - 2024 11:59 PM CDT Hospital Encounter [facility] Pre Admission [facility] [address] [place] [address] Tereso Gil, DPM Discharge Disposition: Home or Self Care 2024 Travel 07/07/2024 Telephone [facility] [address] [place] [phone] Raúl Rod MD schedule HFU with [employer]ACH[employer] cardiology 07/05/2024 External Device Data STL ABSTRACTION Provider, Abstract 07/04/2024 [facility] [address] [place] [phone] Eduardo Craven MD 07/04/2024 [facility] [address] [facility] [address] [place] [address] Ashley Virgen, JOANNE Chest pain, unspecified type; Congestive heart failure, unspecified HF chronicity, unspecified heart failure type ([facility]/HCC) 07/02/2024 8:47 PM CDT - 07/06/2024 7:37 PM CDT Hospital Encounter [facility] 4A Cardiac [address] [place] [address] Danny Mclean MD Elgayesh, MD Byron Garcias Jagdeep S, MD Shah, Matilde Henry MD Bipolar affective disorder ([facility]/HCC) Discharge Disposition: Left Against Medical Advice 07/02/2024 Travel 07/01/2024 Telephone [facility] [address] [place] [address] Veronika Yusuf RN Anticoagulation 06/30/2024 7:21 PM CDT - 07/02/2024 12:38 PM CDT Hospital Encounter [facility] 4A Cardiac [address] [place] [address] Aki Booth, DO Blankenship, MD Byron Garcias Jagdeep S, MD Pneumonia of left lower lobe due to infectious organism Discharge Disposition: Home or Self Care 06/30/2024 Travel 06/28/2024 External Device Data STL ABSTRACTION Provider, Abstract 06/22/2024 Telephone [facility] [address] [place] [address] Eduardo Craven MD Needs Appointment from Last 3 Months Immunizations Immunization Administration Dates Next Due (ACTHIB/HIBERIX)(2 MOS-5 YRS /6 WKS-4 YRS) HAEMOPHILUS INFLUENZAE TYPE B VACCINE (HIB), PRP-T CONJUGATE, 4 DOSE, 0.5 ML IM 06/05/2023 (ADACEL/BOOSTRIX)(10 YR UP) TDAP VACCINE, 0.5ML, IM 01/06/2023(Deferred: Patient left - Will administer at next appt in 1 month),07/01/2022,03/24/2011 (BEXSERO)(10-25 YR) MENINGOC OCCAL RECOMBIANT PROTEIN AND OUTER MEMBRANE VESICLE VACCINE, SEROGROUP B MENB-4C, 2 DOSE IM 06/05/2023 (MENQUADFI)(2 YRS UP) MENING OCOCCAL POLYSACCHARIDE VACCINE A,C,Y,W-135, TT CONJUGATE (PF) 10 MCG/0.5 ML IM SOLUTION 06/05/2023 (PNEUMOVAX 23)(50 YRS UP) PN EUMOCOCCAL POLYSACCHARIDE (PPV23) 0.5 ML, IM 10/13/2017 (PREVNAR 20)(6 WKS UP) PNEUM OCOCCAL CONJUGATE VACCINE 20-VALENT (PCV20), POLYSACCHARIDE VBP901 CONJUGATE, ADJUVANT 0.5 ML (PF) IM 06/05/2023,12/02/2022,12/25/2021 (SPIKEVAX) (12 YRS UP PRIMAR Y SERIES) COVID-19 VACCINE - MRNA-1273(PF) 100 MCG/0.5 ML IM SUSP 05/23/2020,05/22/2020 INFLUENZA VACCINE HIGH DOSE QUADRIVALENT 65 YR UP PF IM 01/24/2021 INFLUENZA VACCINE QUADRIVALE NT 6 MOS UP PF IM 12/02/2022,12/25/2021,01/23/2020,01/04,12/15/2017 Influenza Seasonal Unspecifi ed Formulation IM 03/24/2019 Influenza Seasonal Unspecifi ed Formulation PF IM 01/04/2024,12/08/2014 Influenza Vaccine Split 3+ Yrs IM 01/12/2012, PREVNAR (PCV13) pneumococcal 13-valent conjugate Vaccine 03/24/2019 Family History Medical History Relation Name Comments Heart Disease Father Hypertension Father Breast Cancer Maternal Aunt 1 Breast Cancer Maternal Aunt 2 Breast Cancer Mother Hypertension Mother Stomach Cancer Paternal Aunt Colon Cancer Paternal Grandmother Lung Cancer Paternal Grandmother Ovarian Cancer Neg Hx Relation Name Status Comments Father Maternal Aunt 1 Maternal Aunt 2 Alive Mother Paternal Aunt Paternal Grandmother Social History Tobacco Use Types Packs/Day Years Used Date Smoking Tobacco: Former Cigarettes 1 43 S tarted: 07/21/2022 Smokeless Tobacco: Never Tobacco Cessation:Counseling Given: Not Answered Alcohol Use Standard Drinks/Week Comments No 0 [...] Never 06/13/2019 How often do you attend [facility] or alevism services? More than 4 times per year 06/13/2019 Do you belong to any clubs o r organizations such as judaism groups, unions, fraternal or athletic groups, or [...] on file Legal Sex Female 11:49 PM [employer] Gender Identity Not on file Sexual Orientation Not on file Last Filed Vital Signs Vital Sign Reading Time Taken Comments Blood Pressure 140/92 09/16/2024 10:38 PM CDT Pulse 104 09/16/2024 10:38 PM CDT Temperature 37 C (98.6 F) 09/16/2024 10:38 PM CDT Respiratory Rate 24 09/16/2024 10:38 PM CDT Oxygen Saturation 97% 09/16/2024 10:38 PM CDT Inhaled Oxygen Concentration - - Weight 102.1 kg (225 lb) 09/16/2024 10:38 PM CDT Height 165.1 cm (5' 5 ) 09/13/2024 12:00 AM CDT Body Mass Index 37.44 09/13/2024 12:00 AM CDT Plan of Treatment Upcoming Encounters Date Type Department Care Team (Late st Contact Info) Description 09/22/2024 10:00 AM CDT Office Visit [facility] [address] [place] [address] Jerson Salas PA [address] [place] [address] 10/06/2024 4:00 PM CDT Office Visit [facility] [address] [place] [address] Cristian Metcalf, LANG PATH THERAPIST [address] [address] [place] [address] Health Maintenance Due Date Last Done Comments DIABETES ANNUAL FOOT EXAM 07/12/1983 HEPATITIS B VACCINES (1 of 3 - 19+ 3-dose series) 1984 FIT-DNA Q 3 years 2010 FIT/FOBT Q 1 year 2010 Flex Sig/CT Colonography Q 5 years 2010 BREAST CANCER SCREENING 01/25/2012 01/25/20 11, 01/24/2011, 01/03/2011 COLORECTAL SCREENING 01/23/2014 01/23/2011, 09/20/19 11 Colorectal Cancer Screening 01/23/2014 Lung Cancer Screening 07/12/2015 ZOSTER VACCINE (1 of 2) 07/12/2015 COVID-19 Vaccine (2023-2 5 season) 2023 10/02/2021, 02/27/2021, 05/23/2020, Additional history exists DIABETES MICROALBUMIN ANNUAL SCREEN 02/27/2024 02/26/2023 DIABETES HBA1C Q 6 MONTHS 01/28/20252024, 02/19/2024, 07/10/2023, Additional history exists LDL CHOLESTEROL ANNUAL 02/18/2025 , 06/23/2023, 02/26/2023, Additional history exists DIABETES ANNUAL RETINAL EXAM 03/31/202511/2024, 03/31/2024, 03/31/2024, Additional history exists PAP SMEAR 01/06/2026 01/06/2023, 09/18/2021 CERVICAL CANCER SCREENING 01/07/2028 HPV/Cotest (21-29) 01/07/2028 01/06/2023 HPV/Cotest (30-65) 01/07/2028 01/06/2023 DTAP/TDAP/TD VACCINES (3 - T d or Tdap) 07/01/2032 07/01/2022, 03/24/2011 INFLUENZA VACCINE Completed 01/04/2024, , 12/25/2021, Additional history exists Goals Goal Patient Goal Type Associated Problems Recent Progress Patient-Stated? Author Heart Failure Goal Care Plan Heart Failure Problem No Latonya Anguiano LPN Medical Devices Implanted Type Area Hydrodynamics Professor Device Identifier Shelf Expiration Date Model / Serial / Lot Dev Closure Angioseal 6fr Vip [id number] - [id number] Implanted:Qty: 1 on 03/21/2024 by Kyler Helm MD at [facility] Closure Device Right: Groin TERUMO- CARDIOVASC SYS [id number] 10/25/2024 [id number] / / [id number] 93 Imp Toe Phalinx 10 Solid Angl Sml [id number] - [id number] Implanted:Qty: 1 on 07/20/2024 by Tereso Gil DPM at [facility] Toe Left: Foot [employer] 12/29/2031 [id number] / / [id number] Procedures Procedure Name Priority Date/Time Associated Diagnosis Comments TELEMETRY REPORT 09/16/2024 3:14 AM CDT LACTIC ACID Stat 09/15/2024 8:00 AM CDT COMPREHENSIVE METABOLIC PANEL Routine 09/15/2024 8:00 AM CDT PROTIME-INR Routine 09/15/2024 8:00 AM CDT POC GLUCOSE Routine 09/15/2024 7:26 AM CDT POC GLUCOSE Routine 09/14/2024 8:55 PM CDT LACTIC ACID Stat 09/14/2024 5:41 PM CDT POC GLUCOSE Routine 09/14/2024 4:29 PM CDT COMPREHENSIVE METABOLIC PANEL Routine 09/14/2024 12:08 PM CDT CBC WITH DIFFERENTIAL Routine 09/14/2024 12:08 PM CDT POC GLUCOSE [...] CDT BLOOD GAS VENOUS Timed Study 09/13/2024 11:47 AM CDT PROTIME-INR Routine 09/13/2024 9:16 AM CDT BLOOD GAS VENOUS Stat 09/13/2024 9:16 AM CDT BASIC METABOLIC PANEL Routine 09/13/2024 9:16 AM CDT CBC WITH DIFFERENTIAL Routine 09/13/2024 9:16 AM CDT TROPONIN 6 HR, 5TH GEN Timed Study 09/13/2024 9:16 AM CDT POC GLUCOSE Routine 09/13/2024 6:58 AM CDT RT ASSESS AND TREAT Routine 09/13/2024 12:19 AM CDT COPD EDUCATION RT Routine 09/13/2024 12:19 AM CDT TROPONIN 2 HR, 5TH GEN Timed Study 09/12/2024 11:02 PM CDT RESPIRATORY PATHOGEN PCR PANEL Stat 09/12/2024 11:02 PM CDT XR CHEST PA OR AP 1 VW Stat 09/12/2024 10:18 PM CDT EXTRA TUBE (BLUE) Stat 09/12/2024 9:3 2 PM CDT EXTRA TUBE Stat 09/12/2024 9:32 PM CDT BRAIN NATRIURETIC PEPTIDE, BNP OR PROBNP Stat 09/12/2024 9:32 PM CDT TROPONIN BASELINE, 5TH GEN Stat 09/12/2024 9:32 PM CDT COMPREHENSIVE METABOLIC PANEL Stat 09/12/2024 9:32 PM CDT CBC WITH DIFFERENTIAL Stat 09/12/2024 9:32 PM CDT EKG 12-LEAD Stat 09/12/2024 9:23 PM CDT RT ASSESS AND TREAT Stat 09/12/2024 9 :19 PM CDT CRITICAL CARE Routine 09/12/2024 9:09 PM CDT POC GLUCOSE Stat 09/11/2024 12:30 AM CDT POC GLUCOSE Stat 09/10/2024 11:46 PM CDT TROPONIN 2 HR, 5TH GEN Timed Study 09/10/2024 11:40 PM CDT BLOOD GAS VENOUS Stat 09/10/2024 10:23 PM CDT XR CHEST PA OR AP 1 VW Stat 09/10/2024 10:05 PM CDT EKG 12-LEAD Stat 09/10/2024 9:54 PM CDT DIFFERENTIAL, MANUAL Stat 09/10/2024 9:30 PM CDT TROPONIN BASELINE, 5TH GEN Stat 09/10/2024 9:30 PM CDT D-DIMER Stat 09/10/2024 9:30 PM CDT COMPREHENSIVE METABOLIC PANEL Stat 09/10/2024 9:30 PM CDT CBC WITH DIFFERENTIAL Stat 09/10/2024 9:30 PM CDT RT ASSESS AND TREAT Stat 09/10/2024 9 :26 PM CDT XR CHEST PA AND LATERAL 2 VW Stat 09/10/2024 1:18 PM CDT EKG 12-LEAD Stat 09/09/2024 9:38 PM CDT TROPONIN 2 HR, 5TH GEN Timed Study 09/09/2024 9:58 AM CDT RT ASSESS AND TREAT Stat 09/09/2024 6 :08 AM CDT XR CHEST PA OR AP 1 VW Stat 09/09/2024 5:30 AM CDT BRAIN NATRIURETIC PEPTIDE, BNP OR PROBNP Stat 09/09/2024 5:24 AM CDT EXTRA TUBE (BLUE) Stat 09/09/2024 5:2 4 AM CDT EXTRA TUBE Stat 09/09/2024 5:24 AM CDT COMPREHENSIVE METABOLIC PANEL Stat 09/09/2024 5:24 AM CDT CBC WITH DIFFERENTIAL Stat 09/09/2024 5:24 AM CDT TROPONIN BASELINE, 5TH GEN Stat 09/09/2024 5:24 AM CDT EKG 12-LEAD Stat 09/09/2024 4:22 AM CDT POC GLUCOSE Stat 08/30/2024 1:33 PM CDT POC GLUCOSE Stat 08/30/2024 7:48 AM CDT PROCALCITONIN Stat 08/30/2024 5:27 AM CDT BASIC METABOLIC PANEL Stat 08/30/2024 5:27 AM CDT CBC WITH DIFFERENTIAL Stat 08/30/2024 5:27 AM CDT PROTIME-INR Stat 08/30/2024 3:03 AM CDT TROPONIN 6 HR, 5TH GEN Timed Study 08/30/2024 3:03 AM CDT TELEMETRY REPORT 08/30/2024 2:57 AM CDT INFLUENZA A/B, RSV AND COVID-19 PCR PANEL Stat 08/30/2024 2:52 AM CDT INFLUENZA A/B, RSV AND COVID-19 PCR PANEL Stat 08/30/2024 2:52 AM CDT RT ASSESS AND TREAT Stat 08/30/2024 12:55 AM CDT COPD EDUCATION RT Stat 08/30/2024 12:[address] ABDOMEN PELVIS W CONTRAST Stat 08/29/2024 11:52 PM CDT TROPONIN 2 HR, 5TH GEN Timed Study 08/29/2024 10:31 PM CDT XR CHEST PA OR AP 1 VW Stat 08/29/2024 9:06 PM CDT EKG 12-LEAD Stat 08/29/2024 8:37 PM CDT EKG 12-LEAD Stat 08/29/2024 8:17 PM CDT TROPONIN BASELINE, 5TH GEN Stat 08/29/2024 8:09 PM CDT LACTIC ACID Stat 08/29/2024 8:09 PM CDT LIPASE Stat 08/29/2024 8:09 PM CDT COMPREHENSIVE METABOLIC PANEL Stat 08/29/2024 8:09 PM CDT CBC WITH DIFFERENTIAL Stat 08/29/2024 8:09 PM CDT POC GLUCOSE Routine 08/26/2024 5:19 PM CDT HOME O2 EVAL (DESATURATION SCREEN) Pending Discharge 08/26/2024 2:46 PM CDT POC GLUCOSE Routine 08/26/2024 11:50 AM CDT POC GLUCOSE Routine 08/26/2024 7:26 AM CDT PROTIME-INR Routine 08/26/2024 4:06 AM CDT POC GLUCOSE Routine 08/25/2024 10:03 PM CDT POC GLUCOSE Routine 08/25/2024 4:51 PM CDT POC GLUCOSE Routine 08/25/2024 11:44 AM CDT XR CHEST PA OR AP 1 VW Pending Discharge 08/25/2024 7:48 AM CDT POC GLUCOSE Routine 08/25/2024 7:32 AM CDT LACTIC ACID Routine 08/25/2024 6:08 AM CDT BASIC METABOLIC PANEL Routine 08/25/2024 6:08 AM CDT CBC WITH DIFFERENTIAL Routine 08/25/2024 6:08 AM CDT PROTIME-INR Routine 08/25/2024 6:08 AM CDT POC GLUCOSE Routine 08/24/2024 9:23 PM CDT POC GLUCOSE Routine 08/24/2024 5:12 PM CDT POC GLUCOSE Routine 08/24/2024 11:12 AM CDT LACTIC ACID Stat 08/24/2024 11:06 AM CDT POC GLUCOSE Routine 08/24/2024 7:23 AM CDT BASIC METABOLIC PANEL Routine 08/24/2024 4:11 AM CDT CBC WITH DIFFERENTIAL Routine 08/24/2024 4:11 AM CDT PROTIME-INR Routine 08/24/2024 4:11 AM CDT POC GLUCOSE Routine 08/23/2024 8:19 PM CDT POC GLUCOSE Routine 08/23/2024 5:20 PM CDT LACTIC ACID Stat 08/23/2024 1:44 PM CDT POC GLUCOSE Routine 08/23/2024 11:36 AM CDT PT EVAL AND TREAT Pending Discharge 08/23/2024 10:35 AM CDT OT EVAL AND TREAT Pending Discharge 08/23/2024 10:35 AM CDT POC GLUCOSE Routine 08/23/2024 7:12 AM CDT LACTIC ACID Stat 08/23/2024 5:00 AM CDT PROTIME-INR Routine 08/23/2024 5:00 AM CDT BASIC METABOLIC PANEL Routine 08/23/2024 5:00 AM CDT CBC WITH DIFFERENTIAL Routine 08/23/2024 5:00 AM CDT POC GLUCOSE Routine 08/22/2024 8:51 PM CDT TROPONIN 6 HR, 5TH GEN Timed Study 08/22/2024 8:39 PM CDT LACTIC ACID Stat 08/22/2024 8:39 PM CDT RT ASSESS AND TREAT Stat 08/22/2024 7 :46 PM CDT COPD EDUCATION RT Stat 08/22/2024 7:4 6 PM CDT RT ASSESS AND TREAT Stat 08/22/2024 6 :42 PM CDT PROCALCITONIN Stat 08/22/2024 6:38 PM CDT TROPONIN 2 HR, 5TH GEN Timed Study 08/22/2024 6:38 PM CDT BLOOD CULTURE Stat 08/22/2024 5:19 PM CDT BLOOD CULTURE Stat 08/22/2024 5:19 PM CDT BLOOD CULTURE Stat 08/22/2024 5:19 PM CDT BLOOD CULTURE Stat 08/22/2024 5:19 PM CDT BLOOD GAS ARTERIAL Stat 08/22/2024 5: 05 PM CDT XR CHEST PA OR AP 1 VW Stat 08/22/2024 4:50 PM CDT RESPIRATORY PATHOGEN PCR PANEL Stat 08/22/2024 4:33 PM CDT LACTIC ACID Stat 08/22/2024 4:32 PM CDT TROPONIN BASELINE, 5TH GEN Stat 08/22/2024 4:32 PM CDT BRAIN NATRIURETIC PEPTIDE, BNP OR PROBNP Stat 08/22/2024 4:32 PM CDT COMPREHENSIVE METABOLIC PANEL Stat 08/22/2024 4:32 PM CDT PTT Stat 08/22/2024 4:32 PM CDT PROTIME-INR Stat 08/22/2024 4:32 PM CDT CBC WITH DIFFERENTIAL Stat 08/22/2024 4:32 PM CDT EKG 12-LEAD Stat 08/22/2024 4:27 PM CDT EKG 12-LEAD Stat 08/20/2024 9:[address] CHEST WO CONTRAST Routine 08/18/2024 11:42 AM CDT POC GLUCOSE Routine 08/18/2024 11:39 AM CDT POC GLUCOSE Routine 08/18/2024 9:41 AM CDT TROPONIN 6 HR, 5TH GEN Timed Study 08/18/2024 8:52 AM CDT MAGNESIUM LEVEL Routine 08/18/2024 6:01 AM CDT TROPONIN 2 HR, 5TH GEN Timed Study 08/18/2024 6:01 AM CDT BLOOD GAS VENOUS Stat 08/18/2024 4:02 AM CDT PROTIME-INR Stat 08/18/2024 3:12 AM CDT D-DIMER Stat 08/18/2024 3:12 AM CDT XR CHEST PA OR AP 1 VW Stat 08/18/2024 3:04 AM CDT INFLUENZA A/B, RSV AND COVID-19 PCR PANEL Stat 08/18/2024 3:00 AM CDT INFLUENZA A/B, RSV AND COVID-19 PCR PANEL Stat 08/18/2024 3:00 AM CDT TROPONIN BASELINE, 5TH GEN Stat 08/18/2024 2:49 AM CDT BRAIN NATRIURETIC PEPTIDE, BNP OR PROBNP Stat 08/18/2024 2:49 AM CDT COMPREHENSIVE METABOLIC PANEL Stat 08/18/2024 2:49 AM CDT CBC WITH DIFFERENTIAL Stat 08/18/2024 2:48 AM CDT EKG 12-LEAD Stat 08/18/2024 2:30 AM CDT TELEMETRY REPORT 08/17/2024 1:57 AM CDT POC GLUCOSE Routine 08/16/2024 11:09 AM CDT POC GLUCOSE Routine 08/16/2024 7:07 AM CDT VITAMIN B12 AND FOLATE Routine 08/16/2024 4:59 AM CDT CBC WITH DIFFERENTIAL Routine 08/16/2024 4:59 AM CDT POC GLUCOSE Routine 08/15/2024 7:49 PM CDT POC GLUCOSE Routine 08/15/2024 4:44 PM CDT POC GLUCOSE Routine 08/15/2024 11:[address] HUMERUS WO CONTRAST LEFT Pending Discharge 08/15/2024 7:54 AM CDT POC GLUCOSE Routine 08/15/2024 7:09 AM CDT PT CUSTOM ORTHOTICS Pending Discharge 08/15/2024 6:41 AM CDT BASIC METABOLIC PANEL Routine 08/15/2024 4:57 AM CDT CBC WITH DIFFERENTIAL Routine 08/15/2024 4:57 AM CDT PT EVAL AND TREAT Pending Discharge 08/15/2024 3:20 AM CDT OT EVAL AND TREAT Pending Discharge 08/15/2024 3:20 AM CDT RT ASSESS AND TREAT Routine 08/15/2024 3 :19 AM CDT COPD EDUCATION RT Routine 08/15/2024 3:[address] CHEST ABDOMEN PELVIS W CONT Stat 08/14/2024 8:32 PM CDT POC LACTIC ACID Stat 08/14/2024 7:36 PM CDT BLOOD GAS VENOUS Stat 08/14/2024 7:36 PM CDT MAGNESIUM LEVEL Stat 08/14/2024 7:05 PM CDT TSH REFLEXIVE Stat 08/14/2024 7:05 PM CDT PROTIME-INR Stat 08/14/2024 7:05 PM CDT BRAIN NATRIURETIC PEPTIDE, BNP OR PROBNP Stat 08/14/2024 7:05 PM CDT LIPASE Stat 08/14/2024 7:05 PM CDT COMPREHENSIVE METABOLIC PANEL Stat 08/14/2024 7:05 PM CDT CBC WITH DIFFERENTIAL Stat 08/14/2024 7:05 PM CDT XR CHEST PA OR AP 1 VW Stat 08/14/2024 6:51 PM CDT XR HUMERUS 2+ VW LEFT Stat 08/14/2024 6:50 PM CDT RESPIRATORY PATHOGEN PCR PANEL Stat 08/14/2024 6:43 PM CDT EKG 12-LEAD Stat 08/14/2024 6:23 PM CDT POC GLUCOSE Routine 08/06/2024 3:02 PM CDT POC GLUCOSE Routine 08/06/2024 12:30 PM CDT HOME O2 EVAL (DESATURATION SCREEN) Routine 08/06/2024 12:08 PM CDT COMPREHENSIVE METABOLIC PANEL Routine 08/06/2024 8:59 AM CDT CBC WITH DIFFERENTIAL Routine 08/06/2024 8:59 AM CDT PROTIME-INR Routine 08/06/2024 8:59 AM CDT POC GLUCOSE Routine 08/06/2024 8:19 AM CDT POC GLUCOSE Routine 08/06/2024 1:45 AM CDT POC GLUCOSE Routine 08/05/2024 9:30 PM CDT PROTIME-INR Stat 08/05/2024 6:11 PM CDT COMPREHENSIVE METABOLIC PANEL Routine 08/05/2024 6:11 PM CDT POC GLUCOSE Routine 08/05/2024 5:15 PM CDT POC GLUCOSE Routine 08/05/2024 11:46 AM CDT POC GLUCOSE Routine 08/05/2024 7:51 AM CDT CBC WITH DIFFERENTIAL Routine 08/05/2024 7:12 AM CDT PROTIME-INR Routine 08/05/2024 5:02 AM CDT POC GLUCOSE Routine 08/05/2024 3:01 AM CDT POC GLUCOSE Routine 08/04/2024 9:09 PM CDT POC GLUCOSE Routine 08/04/2024 4:03 PM CDT TROPONIN 6 HR, 5TH GEN Timed Study 08/04/2024 3:27 PM CDT POC GLUCOSE Routine 08/04/2024 12:49 PM CDT EXTRA TUBE (URINE [place]ORTH) Stat 08/04/2024 11:44 AM CDT TROPONIN 2 HR, 5TH GEN Timed Study 08/04/2024 11:44 AM CDT URINALYSIS W/REFLEX MICROSCOPIC Stat 08/04/2024 11:44 AM CDT DRUG SCREEN, URINE Stat 08/04/2024 11:44 AM CDT POC GLUCOSE Stat 08/04/2024 10:31 AM CDT UNFRACTIONATED HEPARIN ACTIVITY Stat 08/04/2024 9:09 AM CDT PTT Stat 08/04/2024 9:09 AM CDT CBC WITHOUT DIFFERENTIAL Stat 08/04/2024 9:09 AM CDT POC GLUCOSE Stat 08/04/2024 8:47 AM CDT TROPONIN BASELINE, 5TH GEN Stat 08/04/2024 8:42 AM CDT EKG 12-LEAD Stat 08/04/2024 7:54 AM CDT PROCALCITONIN Stat 08/04/2024 6:26 AM CDT TROPONIN 2 HR, 5TH GEN Timed Study 08/04/2024 6:26 AM CDT RT ASSESS AND TREAT Stat 08/04/2024 5 :40 AM CDT COPD EDUCATION RT Stat 08/04/2024 5:4 0 AM CDT COPD EDUCATION RT Stat 08/04/2024 5:2 8 AM CDT BLOOD GAS VENOUS Stat 08/04/2024 5:01 AM CDT XR CHEST PA OR AP 1 VW Stat 08/04/2024 5:00 AM CDT RESPIRATORY PATHOGEN PCR PANEL Stat 08/04/2024 4:34 AM CDT PROTIME-INR Stat 08/04/2024 4:11 AM CDT TROPONIN BASELINE, 5TH GEN Stat 08/04/2024 4:11 AM CDT BRAIN NATRIURETIC PEPTIDE, BNP OR PROBNP Stat 08/04/2024 4:11 AM CDT LACTIC ACID Stat 08/04/2024 4:11 AM CDT HCG QUANTITATIVE, BLOOD Stat 08/04/2024 4:11 AM CDT COMPREHENSIVE METABOLIC PANEL Stat 08/04/2024 4:11 AM CDT CBC WITH DIFFERENTIAL Stat 08/04/2024 4:11 AM CDT EKG 12-LEAD Stat 08/04/2024 3:38 AM CDT EXTRA TUBE (URINE [place]) Stat 08/03/2024 1:32 AM CDT URINALYSIS W/REFLEX MICROSCOPIC Stat 08/03/2024 1:32 AM CDT EKG 12-LEAD Stat 08/03/2024 12:12 AM CDT TROPONIN 2 HR, 5TH GEN Timed Study 08/02/2024 11:51 PM CDT CTA CHEST W AND/OR WO CONTRAST Stat 08/02/2024 11:09 PM CDT XR CHEST PA OR AP 1 VW Stat 08/02/2024 9:54 PM CDT TROPONIN BASELINE, 5TH GEN Stat 08/02/2024 9:23 PM CDT LACTIC ACID Stat 08/02/2024 9:23 PM CDT PROTIME-INR Stat 08/02/2024 9:23 PM CDT TSH Stat 08/02/2024 9:23 PM CDT COMPREHENSIVE METABOLIC PANEL Stat 08/02/2024 9:23 PM CDT CBC WITH DIFFERENTIAL Stat 08/02/2024 9:23 PM CDT BLOOD CULTURE Stat 08/02/2024 9:23 PM CDT BLOOD CULTURE Stat 08/02/2024 9:23 PM CDT BLOOD CULTURE Stat 08/02/2024 9:23 PM CDT BLOOD CULTURE Stat 08/02/2024 9:23 PM CDT INFLUENZA A/B, RSV AND COVID-19 PCR PANEL Stat 08/02/2024 9:04 PM CDT INFLUENZA A/B, RSV AND COVID-19 PCR PANEL Stat 08/02/2024 9:04 PM CDT EKG 12-LEAD Stat 08/02/2024 8:35 PM CDT POC GLUCOSE Routine 07/31/2024 11:51 AM CDT POC GLUCOSE Routine 07/31/2024 8:11 AM CDT BASIC METABOLIC PANEL Routine 07/31/2024 5:49 AM CDT CBC WITH DIFFERENTIAL Routine 07/31/2024 5:49 AM CDT PROTIME-INR Routine 07/31/2024 5:49 AM CDT POC GLUCOSE Routine 07/30/2024 8:28 PM CDT POC GLUCOSE Routine 07/30/2024 5:19 PM CDT POC GLUCOSE Routine 07/30/2024 12:09 PM CDT VANCOMYCIN LEVEL TROUGH Timed Study 07/30/2024 11:41 AM CDT POC GLUCOSE Routine 07/30/2024 8:13 AM CDT BASIC METABOLIC PANEL Routine 07/30/2024 3:52 AM CDT PROTIME-INR Routine 07/30/2024 3:52 AM CDT POC GLUCOSE Routine 07/29/2024 8:24 PM CDT POC GLUCOSE Routine 07/29/2024 5:20 PM CDT POC GLUCOSE Routine 07/29/2024 11:19 AM CDT POC GLUCOSE Routine 07/29/2024 7:55 AM CDT CBC WITH DIFFERENTIAL Routine 07/29/2024 6:04 AM CDT COMPREHENSIVE METABOLIC PANEL Routine 07/29/2024 6:04 AM CDT MAGNESIUM LEVEL Routine 07/29/2024 6:04 AM CDT PHOSPHORUS Routine 07/29/2024 6:04 AM CDT TROPONIN 6 HR, 5TH GEN Timed Study 07/28/2024 11:23 PM CDT MAGNESIUM LEVEL Stat 07/28/2024 9:29 PM CDT HEMOGLOBIN A1C Stat 07/28/2024 9:29 PM CDT RT ASSESS AND TREAT Stat 07/28/2024 8 :24 PM CDT PT EVAL AND TREAT Stat 07/28/2024 8:2 4 PM CDT OT EVAL AND TREAT Stat 07/28/2024 8:2 4 PM CDT BRAIN NATRIURETIC PEPTIDE, BNP OR PROBNP Stat 07/28/2024 6:30 PM CDT TROPONIN 2 HR, 5TH GEN Timed Study 07/28/2024 6:30 [address]T CTA CHEST W AND/OR WO CONTRAST Stat 07/28/2024 5:27 PM CDT XR CHEST PA OR AP 1 VW Stat 07/28/2024 4:06 PM CDT RESPIRATORY PATHOGEN PCR PANEL Stat 07/28/2024 3:53 PM CDT TROPONIN BASELINE, 5TH GEN Stat 07/28/2024 3:47 PM CDT PROTIME-INR Stat 07/28/2024 3:47 PM CDT EXTRA TUBE (BLUE) Stat 07/28/2024 3:4 7 PM CDT EXTRA TUBE (SST/GOLD) Stat 07/28/2024 3:47 PM CDT EXTRA TUBE Stat 07/28/2024 3:47 PM CDT COMPREHENSIVE METABOLIC PANEL Stat 07/28/2024 3:47 PM CDT CBC WITH DIFFERENTIAL Stat 07/28/2024 3:47 PM CDT EKG 12-LEAD Stat 07/28/2024 3:36 PM CDT TELEMETRY REPORT 07/26/2024 3:08 PM CDT POC GLUCOSE Routine 07/25/2024 12:26 PM CDT POC GLUCOSE Routine 07/25/2024 7:51 AM CDT BASIC METABOLIC PANEL Routine 07/25/2024 6:26 AM CDT CBC WITHOUT DIFFERENTIAL Routine 07/25/2024 6:26 AM CDT PROTIME-INR Routine 07/25/2024 6:26 AM CDT POC GLUCOSE Routine 07/24/2024 9:19 PM CDT POC GLUCOSE Routine 07/24/2024 5:29 PM CDT POC GLUCOSE Routine 07/24/2024 12:23 PM CDT POC GLUCOSE Routine 07/24/2024 7:54 AM CDT HOME O2 EVAL (DESATURATION SCREEN) Pending Discharge 07/24/2024 6:16 AM CDT OT EVAL AND TREAT Pending Discharge 07/24/2024 6:16 AM CDT BASIC METABOLIC PANEL Routine 07/24/2024 4:58 AM CDT CBC WITHOUT DIFFERENTIAL Routine 07/24/2024 4:58 AM CDT PROTIME-INR Routine 07/24/2024 4:58 AM CDT HOME O2 EVAL (DESATURATION SCREEN) Pending Discharge 07/24/2024 12:16 AM CDT POC GLUCOSE Routine 07/24/2024 12:10 AM CDT POC GLUCOSE Routine 07/23/2024 8:40 PM CDT POC GLUCOSE Routine 07/23/2024 5:20 PM CDT POC GLUCOSE Routine 07/23/2024 12:25 PM CDT POC GLUCOSE Routine 07/23/2024 7:37 AM CDT SPUTUM CULTURE WITH GRAM STAIN Routine 07/23/2024 6:15 AM CDT PNEUMONIA PATHOGEN PCR PANEL Routine 07/23/2024 6:15 AM CDT PROTIME-INR Routine 07/23/2024 5:09 AM CDT POC GLUCOSE Routine 07/22/2024 10:02 PM CDT POC GLUCOSE Routine 07/22/2024 6:35 PM CDT POC GLUCOSE Routine 07/22/2024 12:06 PM CDT RESPIRATORY PATHOGEN PCR PANEL Routine 07/22/2024 9:10 AM CDT LACTIC ACID Stat 07/22/2024 7:54 AM CDT POC GLUCOSE Routine 07/22/2024 7:49 AM CDT COPD EDUCATION RT Routine 07/22/2024 7:0 3 AM CDT BASIC METABOLIC PANEL Routine 07/22/2024 5:43 AM CDT CBC WITH DIFFERENTIAL Routine 07/22/2024 5:43 AM CDT BLOOD GAS ARTERIAL Stat 07/21/2024 10:58 PM CDT LACTIC ACID Stat 07/21/2024 9:44 PM CDT EXTRA TUBE (URINE [place]TH) Stat 07/21/2024 8:42 PM CDT URINALYSIS W/REFLEX MICROSCOPIC Stat 07/21/2024 8:42 PM CDT TROPONIN 6 HR, 5TH GEN Timed Study 07/21/2024 7:54 PM CDT LACTIC ACID Stat 07/21/2024 7:54 PM CDT POC GLUCOSE Routine 07/21/2024 6:35 PM CDT PROTIME-INR Stat 07/21/2024 4:40 PM CDT BLOOD CULTURE Stat 07/21/2024 4:40 PM CDT BLOOD CULTURE Stat 07/21/2024 4:40 PM CDT BLOOD CULTURE Stat 07/21/2024 4:40 PM CDT BLOOD CULTURE Stat 07/21/2024 4:40 PM CDT RT ASSESS AND TREAT Stat 07/21/2024 4 :36 PM CDT TROPONIN 2 HR, 5TH GEN Timed Study 07/21/2024 4:05 PM CDT CTA CHEST W AND/OR WO CONTRAST Stat 07/21/2024 4:01 PM CDT XR CHEST PA OR AP 1 VW Stat 07/21/2024 2:55 PM CDT EKG 12-LEAD Stat 07/21/2024 2:09 PM CDT LACTIC ACID Stat 07/21/2024 1:48 PM CDT MAGNESIUM LEVEL Stat 07/21/2024 1:48 PM CDT TROPONIN BASELINE, 5TH GEN Stat 07/21/2024 1:48 PM CDT BRAIN NATRIURETIC PEPTIDE, BNP OR PROBNP Stat 07/21/2024 1:48 PM CDT COMPREHENSIVE METABOLIC PANEL Stat 07/21/2024 1:48 PM CDT CBC WITH DIFFERENTIAL Stat 07/21/2024 1:48 PM CDT TELEMETRY REPORT 07/21/2024 1:42 PM CDT CRITICAL CARE Routine 07/21/2024 1:16 PM CDT XR FOOT 3+ VW LEFT Pending Discharge 07/20/2024 7:24 PM CDT POC GLUCOSE Routine 07/20/2024 6:47 PM CDT ANESTHESIA AIRWAY Routine 07/20/2024 6:2 0 PM CDT VT CORRECTION HAMMERT[place] 07/20/2024 5:10 PM CDT Hammer toe of left foot POC GLUCOSE Routine 07/20/2024 3:17 PM CDT TELEMETRY REPORT 07/20/2024 2:21 AM CDT LACTIC ACID Timed Study 07/19/2024 3:04 PM CDT LACTIC ACID Timed Study 07/19/2024 11:54 AM CDT POC GLUCOSE Routine 07/19/2024 11:53 AM CDT BASIC METABOLIC PANEL Timed Study 07/19/2024 7:53 AM CDT LACTIC ACID Timed Study 07/19/2024 7:53 AM CDT POC GLUCOSE Routine 07/19/2024 7:01 AM CDT VITAMIN B12 AND FOLATE Routine 07/19/2024 3:32 AM CDT LACTIC ACID Routine 07/19/2024 3:32 AM CDT BASIC METABOLIC PANEL Routine 07/19/2024 3:32 AM CDT CBC WITHOUT DIFFERENTIAL Routine 07/19/2024 3:32 AM CDT TROPONIN 6 HR, 5TH GEN Timed Study 07/19/2024 3:32 AM CDT RT ASSESS AND TREAT Routine 07/18/2024 11:40 PM CDT POC GLUCOSE Routine 07/18/2024 11:19 PM CDT RT ASSESS AND TREAT Stat 07/18/2024 9 :58 PM CDT TROPONIN 2 HR, 5TH GEN Timed Study 07/18/2024 7:21 PM CDT XR CHEST PA OR AP 1 VW Stat 07/18/2024 6:07 PM CDT BLOOD CULTURE Stat 07/18/2024 5:53 PM CDT BLOOD CULTURE Stat 07/18/2024 5:53 PM CDT BLOOD CULTURE Stat 07/18/2024 5:53 PM CDT BLOOD CULTURE Stat 07/18/2024 5:53 PM CDT LACTIC ACID Stat 07/18/2024 5:49 PM CDT EKG 12-LEAD Stat 07/18/2024 5:37 PM CDT TROPONIN BASELINE, 5TH GEN Stat 07/18/2024 5:29 PM CDT TSH Stat 07/18/2024 5:29 PM CDT BRAIN NATRIURETIC PEPTIDE, BNP OR PROBNP Stat 07/18/2024 5:29 PM CDT COMPREHENSIVE METABOLIC PANEL Stat 07/18/2024 5:29 PM CDT PROTIME-INR Stat 07/18/2024 5:29 PM CDT CBC WITH DIFFERENTIAL Stat 07/18/2024 5:29 PM CDT VENTILATOR CHECKS Stat 07/18/2024 4:5 1 PM CDT BIPAP Stat 07/18/2024 4:51 PM CDT POC GLUCOSE Routine 07/16/2024 11:41 AM CDT POC GLUCOSE Routine 07/16/2024 7:45 AM CDT PROTIME-INR Routine 07/16/2024 6:12 AM CDT POC GLUCOSE Routine 07/15/2024 9:28 PM CDT POC GLUCOSE Routine 07/15/2024 5:29 PM CDT POC GLUCOSE Routine 07/15/2024 11:50 AM CDT XR FOOT 3+ VW RIGHT Routine 07/15/2024 10:13 AM CDT POC GLUCOSE Routine 07/15/2024 7:30 AM CDT PROTIME-INR Routine 07/15/2024 6:30 AM CDT BASIC METABOLIC PANEL Routine 07/15/2024 6:30 AM CDT CBC WITH DIFFERENTIAL Routine 07/15/2024 6:30 AM CDT POC GLUCOSE Stat 07/14/2024 8:26 PM CDT POC GLUCOSE Stat 07/14/2024 5:20 PM CDT MRSA PCR RAPID SCREEN Stat 07/14/2024 3:44 PM CDT BLOOD CULTURE Stat 07/14/2024 1:15 PM CDT BLOOD CULTURE Stat 07/14/2024 1:15 PM CDT BLOOD CULTURE Stat 07/14/2024 1:15 PM CDT BLOOD CULTURE Stat 07/14/2024 1:15 PM CDT PROTIME-INR Stat 07/14/2024 12:08 PM CDT EXTRA TUBE (URINE [place]) Stat 07/14/2024 11:50 AM CDT URINALYSIS W/REFLEX MICROSCOPIC Stat 07/14/2024 11:50 AM CDT XR CHEST PA OR AP 1 VW Stat 07/14/2024 9:54 AM CDT XR TIBIA AND FIBULA 2 VW RIGHT Stat 07/14/2024 9:53 AM CDT US VENOUS DOPPLER LEG RIGHT Stat 07/14/2024 9:53 AM CDT C-REACTIVE PROTEIN Stat 07/14/2024 8: 51 AM CDT SEDIMENTATION RATE Stat 07/14/2024 8: 51 AM CDT BRAIN NATRIURETIC PEPTIDE, BNP OR PROBNP Stat 07/14/2024 8:51 AM CDT COMPREHENSIVE METABOLIC PANEL Stat 07/14/2024 8:51 AM CDT CBC WITH DIFFERENTIAL Stat 07/14/2024 8:51 AM CDT EKG 12-LEAD Stat 07/14/2024 7:24 AM CDT XR CHEST PA OR AP 1 VW Routine 2024 1:23 PM CDT Preoperative testing COMPREHENSIVE METABOLIC PANEL Routine 2024 12:55 PM CDT TELEMETRY REPORT 07/07/2024 3:02 PM CDT POC GLUCOSE Routine 07/06/2024 4:07 PM CDT POC GLUCOSE Routine 07/06/2024 11:36 AM CDT BASIC METABOLIC PANEL Pending Discharge 07/06/2024 9:29 AM CDT PROTIME-INR Routine 07/06/2024 9:29 AM CDT ECHOCARDIOGRAM W/ CONTRAST AGENT Pending Discharge 07/06/2024 9:15 AM CDT POC GLUCOSE Routine 07/06/2024 7:12 AM CDT POC GLUCOSE Routine 07/05/2024 8:31 PM CDT POC GLUCOSE Routine 07/05/2024 4:30 PM CDT PROTIME-INR Routine 07/05/2024 11:18 AM CDT POC GLUCOSE Routine 07/05/2024 11:13 AM CDT POC GLUCOSE Routine 07/05/2024 7:07 AM CDT POC GLUCOSE Routine 07/04/2024 8:32 PM CDT POC GLUCOSE Routine 07/04/2024 5:14 PM CDT XR TIBIA AND FIBULA 2 VW RIGHT Stat 07/04/2024 2:18 PM CDT XR KNEE 1 OR 2 VW RIGHT Stat 07/04/2024 2:18 PM CDT POC GLUCOSE Routine 07/04/2024 12:15 PM CDT BASIC METABOLIC PANEL Stat 07/04/2024 8:59 AM CDT CBC WITH DIFFERENTIAL Stat 07/04/2024 8:59 AM CDT POC GLUCOSE Routine 07/04/2024 7:31 AM CDT PROTIME-INR Routine 07/04/2024 6:33 AM CDT TELEMETRY REPORT 07/04/2024 3:10 AM CDT EKG 12-LEAD Stat 07/03/2024 10:16 PM CDT POC GLUCOSE Routine 07/03/2024 8:45 PM CDT POC GLUCOSE Routine 07/03/2024 4:37 PM CDT US VENOUS DOPPLER LEG RIGHT Routine 07/03/2024 1:42 PM CDT POC GLUCOSE Routine 07/03/2024 11:38 AM CDT POC GLUCOSE Routine 07/03/2024 7:09 AM CDT PROTIME-INR Stat 07/03/2024 3:35 AM CDT TROPONIN 6 HR, 5TH GEN Timed Study 07/03/2024 3:35 AM CDT POC GLUCOSE Routine 07/03/2024 2:01 AM CDT BLOOD GAS ARTERIAL Stat 07/03/2024 1: 04 AM CDT RT ASSESS AND TREAT Stat 07/03/2024 12:16 AM CDT COPD EDUCATION RT Stat 07/03/2024 12:16 AM CDT TROPONIN 2 HR, 5TH GEN Timed Study 07/02/2024 10:45 PM CDT PROTIME-INR Stat 07/02/2024 9:46 PM CDT PTT Stat 07/02/2024 9:46 PM CDT XR CHEST PA OR AP 1 VW Stat 07/02/2024 9:00 PM CDT INFLUENZA A/B, RSV AND COVID-19 PCR PANEL Stat 07/02/2024 8:58 PM CDT INFLUENZA A/B, RSV AND COVID-19 PCR PANEL Stat 07/02/2024 8:58 PM CDT TROPONIN BASELINE, 5TH GEN Stat 07/02/2024 8:58 PM CDT BRAIN NATRIURETIC PEPTIDE, BNP OR PROBNP Stat 07/02/2024 8:58 PM CDT COMPREHENSIVE METABOLIC PANEL Stat 07/02/2024 8:58 PM CDT CBC WITH DIFFERENTIAL Stat 07/02/2024 8:58 PM CDT RT ASSESS AND TREAT Stat 07/02/2024 8 :44 PM CDT EKG 12-LEAD Stat 07/02/2024 8:30 PM CDT POC GLUCOSE Routine 07/02/2024 7:00 AM CDT PROTIME-INR Routine 07/02/2024 1:52 AM CDT COMPREHENSIVE METABOLIC PANEL Routine 07/02/2024 1:52 AM CDT CBC WITH DIFFERENTIAL Routine 07/02/2024 1:52 AM CDT POC GLUCOSE Routine 07/01/2024 8:28 PM CDT POC GLUCOSE Routine 07/01/2024 4:39 PM CDT POC GLUCOSE Routine 07/01/2024 11:13 AM CDT US VENOUS DOPPLER LEG BILATERAL Stat 07/01/2024 10:33 AM CDT LACTIC ACID Stat 07/01/2024 9:57 AM CDT EKG 12-LEAD Routine 07/01/2024 8:44 AM CDT POC GLUCOSE Routine 07/01/2024 7:22 AM CDT LACTIC ACID Stat 07/01/2024 4:30 AM CDT PROTIME-INR Stat 07/01/2024 4:29 AM CDT COMPREHENSIVE METABOLIC PANEL Stat 07/01/2024 4:29 AM CDT CBC WITH DIFFERENTIAL Stat 07/01/2024 4:29 AM CDT TROPONIN 6 HR, 5TH GEN Timed Study 07/01/2024 4:29 AM CDT BLOOD CULTURE Stat 07/01/2024 1:20 AM CDT BLOOD CULTURE Stat 07/01/2024 1:20 AM CDT BLOOD CULTURE Stat 07/01/2024 1:20 AM CDT BLOOD CULTURE Stat 07/01/2024 1:20 AM CDT CTA CHEST ABD PELVIS W WO CONTRAST Stat 06/30/2024 9:[address] HEAD WO CONTRAST Stat 06/30/2024 9 :52 PM CDT EXTRA TUBE (URINE [place]) Stat 06/30/2024 9:25 PM CDT URINALYSIS W/REFLEX MICROSCOPIC Stat 06/30/2024 9:25 PM CDT DRUG SCREEN, URINE Stat 06/30/2024 9: 25 PM CDT TROPONIN 2 HR, 5TH GEN Timed Study 06/30/2024 9:25 PM CDT RESPIRATORY PATHOGEN PCR PANEL Stat 06/30/2024 9:25 PM CDT EKG 12-LEAD Stat 06/30/2024 8:23 PM CDT XR CHEST PA OR AP 1 VW Stat 06/30/2024 8:22 PM CDT PROTIME-INR Stat 06/30/2024 8:00 PM CDT C-REACTIVE PROTEIN Stat 06/30/2024 7: 59 PM CDT SEDIMENTATION RATE Stat 06/30/2024 7: 59 PM CDT ETHANOL LEVEL Stat 06/30/2024 7:59 PM CDT TSH REFLEXIVE Stat 06/30/2024 7:59 PM CDT MAGNESIUM LEVEL Stat 06/30/2024 7:59 PM CDT BRAIN NATRIURETIC PEPTIDE, BNP OR PROBNP Stat 06/30/2024 7:59 PM CDT TROPONIN BASELINE, 5TH GEN Stat 06/30/2024 7:59 PM CDT COMPREHENSIVE METABOLIC PANEL Stat 06/30/2024 7:59 PM CDT CBC WITH DIFFERENTIAL Stat 06/30/2024 7:59 PM CDT EKG 12-LEAD Stat 06/30/2024 7:12 PM CDT CRITICAL CARE Routine 06/30/2024 7:02 PM CDT LIPID PANEL Routine 02/19/2024 5:29 AM [employer] MICROALBUMIN/CREATINI NE RATIO, RANDOM UR Routine 02/26/2023 3:01 PM [employer] CONTR[employer] A[employer] Type 2 diabetes mellitus without complication, without long-term current use of insulin ([facility]) Wellness examination CERV/VAG CYTO SCREEN PAP W/HPV Routine 01/06/2023 12:00 AM CDT Wellness examination MAMMO DIAGNOSTIC UNI RIGHT W OR WO CAD Routine 01/24/2011 10:03 AM CDT Lump or mass in breast from Last 3 Months or Most Recently Relevant to Health Maintenance Results * TELEMETRY REPORT (09/16/2024 3:14 AM CDT) Only the most recent of8 resultswithin the time period is included. us Provider Scanning ECG ORDERABLES Final Result * (ABNORMAL) LACTIC ACID (09/15/2024 8:00 AM CDT) Only the most recent of23 resultswithin the time period is included. LACTIC ACID 2.2(H) <=2.0 mmol/L 09/15/2024 8:42 AM CDT [facility] Blood Venipuncture / Unknown 09/15/2024 8:00 AM CDT 09/15/2024 8:03 AM CDT Michael Tovar MD CHEMISTRY ORDERABLES Final Result [facility] CLIA # [id number] [address] [place] [address] [place] [address] * PROTIME-INR (09/15/2024 8:00 AM CDT) Only the most recent of34 resultswithin the time period is included. PROTIME 13.8 12.7 - 14.9 Seconds 09/15/2024 8:42 AM CDT [facility] INR 1.0 0.8 - 1.2 09/15/2024 8:42 AM CDT [facility] Blood Venipuncture / Unknown 09/15/2024 8:00 AM CDT 09/15/2024 8:03 AM CDT Narrative [facility] - 09/15/2024 8:42 AM CDT Expected Values for INR: DVT/PE Goal INR 2.5; range 2.0 - 3.0 Valve Replacement Tissue Goal INR 2.5; range 2.0 - 3.0 Valve Replacement Mechanical Goal INR 3.0; range 2.5 - 3.5 POST-[place] Goal INR 2.5; range 2.0 - 3.0 or Goal INR 3.0; range 2.5 - 3.5 Atrial Fibrillation Goal INR 2.5; range 2.0 - 3.0 Ischemic Stroke Goal INR 2.5; range 2.0 - 3.0 Michael Tovar MD HEMATOLOGY ORDERABLES Final Result [facility] CLIA # [id number] [address] * (ABNORMAL) COMPREHENSIVE METABOLIC PANEL (09/15/2024 8:00 AM CDT) Only the most recent of23 resultswithin the time period is included. SODIUM 138 136 - 145 mmol/L 09/15/2024 10:22 AM [facility] POTASSIUM 4.4 3.5 - 5.1 mmol/L 09/15/2024 10:22 AM [facility] CHLORIDE 101 98 - 107 mmol/L 09/15/2024 10:22 AM [facility] CO2 20(L) 22 - 29 mmol/L 09/15/2024 10:22 AM [facility] CALCIUM 8.9 8.6 - 10.0 mg/dL 09/15/2024 10:22 AM [facility] BUN 18 6 - 20 mg/dL 09/15/2024 10:22 AM [facility] CREATININE 0.51 0.51 - 0.95 mg/dL 09/15/2024 10:22 AM [facility] GLUCOSE 238(H) 74 - 99 mg/dL 09/15/2024 10:22 AM CDT [facility] TOTAL PROTEIN 6.2(L) 6.4 - 8.3 g/dL 09/15/2024 10:22 AM T [facility] ALBUMIN 3.4(L) 3.5 - 5.2 g/dL 09/15/2024 10:22 AM [facility] BILIRUBIN TOTAL 0.3 0.0 - 1.0 mg/dL 09/15/2024 10:22 AM T [facility] ALKALINE PHOSPHATASE 102 35 - 104 U/L 09/15/2024 10:22 AM T [facility] AST 17 10 - 35 U/L 09/15/2024 10:22 AM [facility] Comment:Hemolysis present. Result may be falsely elevated. ALT 39(H) <=35 U/L 09/15/2024 10:22 AM [facility] GFR >60 >=60 mL/min/1.7 3 sq meter 09/15/2024 10:22 AM [facility] Comment:eGFR calculated with 2020 CKD-EPI equation. Vegetarian diet, extremely high or low muscle mass, and may affect results. Cystatin C with Glomerular Filtration Rate is a suitable alternative for these patients. ANION GAP 17 9 - 20 mmol/L 09/15/2024 10:22 AM [facility] Blood Venipuncture / Unknown 09/15/2024 8:00 AM CDT 09/15/2024 8:03 AM CDT us Michael Tovar MD CHEMISTRY ORDERABLES Final Result [facility] CLIA # [id number] [address] [place] [id number] * (ABNORMAL) POC GLUCOSE (09/15/2024 7:26 AM CDT) Only the most recent of111 resultswithin the time period is included. [facility] GLUCOSE POC 202(H) 74 - 99 mg/dL 09/15/2024 7:26 AM CDT [facility] SPECIMEN SOURCE, GLUCOSE POC Capillary 09/15/2024 7:26 AM CDT [facility] Blood, whole 09/15/2024 7:26 AM CDT 09/15/2024 7:42 AM CDT Michael Tovar MD POINT OF CARE TESTING Final Result [facility] CLIA # [id number] [address] [place] [id number] * (ABNORMAL) CBC WITH DIFFERENTIAL (09/14/2024 12:08 PM CDT) Only the most recent of32 resultswithin the time period is included. [facility] WBC 10.9(H) 4.8 - 10.8 K/uL 09/14/2024 12:24 PM T [facility] NRBCS 5(H) <1 % 09/14/2024 12:24 PM T [facility] RBC 3.47(L) 4.20 - 5.40 M/uL 09/14/2024 12:24 PM T [facility] HEMOGLOBIN 10.8(L) 12.0 - 16.0 g/dL 09/14/2024 12:24 PM T [facility] HEMATOCRIT 35.2(L) 36.0 - 46.0 % 09/14/2024 12:24 PM CDT [facility] MCV 101.4 84.0 - 103.0 fL 09/14/2024 12:24 PM CDT [facility] MCH 31.1 27.0 - 34.0 pg 09/14/2024 12:24 PM CDT [facility] MCHC 30.7 30.0 - 35.0 g/dL 09/14/2024 12:24 PM CDT [facility] PLATELETS 172 140 - 440 K/uL 09/14/2024 12:24 PM T [facility] MPV 11.2 8.9 - 12.8 fL 09/14/2024 12:24 PM [facility] RDW 18.9(H) 11.0 - 14.5 % 09/14/2024 12:24 PM [facility] RDW-STDEV 69.1(H) 37.0 - 54.0 fL 09/14/2024 12:24 PM [facility] NEUTROPHILS 88(H) 42 - 75 % 09/14/2024 12:24 PM [facility] LYMPHOCYTES 7(L) 24 - 44 % 09/14/2024 12:24 PM [facility] MONOCYTES 4 2 - 10 % 09/14/2024 12:24 PM [facility] EOSINOPHILS 0 0 - 7 % 09/14/2024 12:24 PM [facility] BASOPHILS 0 0 - 1 % 09/14/2024 12:24 PM [facility] IMMATURE GRANULOCYTES 2 0 - 2 % 09/14/2024 12:24 PM [facility] NEUTROPHIL ABSOLUTE 9.62(H) 2.00 - 8.00 K/uL 09/14/2024 12:24 PM [facility] LYMPHOCYTE ABSOLUTE 0.71(L) 1.20 - 4.00 K/uL 09/14/2024 12:24 PM [facility] MONOCYTE ABSOLUTE 0.38 0.10 - 0.60 K/uL 09/14/2024 12:24 PM [facility] EOSINOPHIL ABSOLUTE 0.02 0.00 - 0.70 K/uL 09/14/2024 12:24 PM [facility] BASOPHILS ABSOLUTE 0.02 0.00 - 0.20 K/uL 09/14/2024 12:24 PM [facility] IMMATURE GRANULOCYTES ABSOLUTE 0.19(H) 0.00 - 0.10 K/uL 09/14/2024 12:24 PM [facility] SMEAR REVIEWED: NN - No Action Needed 09/14/2024 12:24 PM T [facility] Blood Venipuncture / Unknown 09/14/2024 12:08 PM CDT 09/14/2024 12:13 PM CDT Michael Tovar MD HEMATOLOGY ORDERABLES Final Result [facility] CLIA # [id number] [address] [address] [place] [address] * (ABNORMAL) BLOOD GAS ARTERIAL (09/13/2024 8:22 PM CDT) Only the most recent of5 resultswithin the time period is included. PH BLOOD POC 7.40 7.35 - 7.45 09/13/2024 8:22 PM [facility] PCO2 POC 54(H) 35 - 45 mm Hg 09/13/2024 8:22 PM [facility] PO2 POC 44(L) 80 - 105 mm Hg 09/13/2024 8:22 PM [facility] HCO3 (CALC) POC 33(H) 22 - 26 mmol/L 09/13/2024 8:22 PM [facility] HEMOGLOBIN POC 10.8(L) 12.0 - 18.0 g/dL 09/13/2024 8:22 PM [facility] BASE EXCESS POC 9(H) -2 - 3 mmol/L 09/13/2024 8:22 PM [facility] O2 SATURATION POC 78(L) 95 - 98 % 09/13/2024 8:22 PM [facility] SODIUM POC 136(L) 138 - 146 mmol/L 09/13/2024 8:22 PM [facility] POTASSIUM POC 4.2 3.5 - 4.9 mmol/L 09/13/2024 8:22 PM [facility] HEMATOCRIT POC 32(L) 38 - 51 % 09/13/2024 8:22 PM CDT [facility] PH TEMP CORRECT 7.40 7.35 - 7.45 09/13/2024 8:22 PM CDT [facility] PCO2 TEMP CORRECT 54(H) 35 - 45 mm Hg 09/13/2024 8:22 PM CDT [facility] PO2 TEMP CORRECT 44(L) 80 - 105 mm Hg 09/13/2024 8:22 PM CDT [facility] SPECIMEN SOURCE, GASES POC Arterial 09/13/2024 8:22 PM CDT [facility] CALCIUM IONIZED POC 5.1 4.8 - 5.2 mg/dL 09/13/2024 8:22 PM T [facility] TCO2 (CALC) POC 35(H) 23 - 27 mmol/L 09/13/2024 8:22 PM T [facility] LITER FLOW 3.0 L/min 09/13/2024 8:22 PM T [facility] PUNC SITE POC ART PUNCT 09/13/2024 8:22 PM T [facility] SOURCE OF OXYGEN POC Cannula 09/13/2024 8:22 PM T [facility] Blood, arterial 09/13/2024 8 :22 PM CDT 09/13/2024 8:24 PM CDT [facility] Margot Mata MD ABG ORDERABLES Final Re sult [facility] CLIA # [id number] [address] [place] [address] [place] [address] * XR THORACOLUMBAR SPINE 2 VW (09/13/2024 [...] OR DERABLES Final Result * (ABNORMAL) POC LACTIC ACID (09/13/2024 2:52 PM CDT) Only the most recent of2 resultswithin the time period is included. LACTIC ACID POC 3.2(H) <=2.0 mmol/L 09/13/2024 2:52 PM CDT [facility] SPECIMEN SOURCE, GASES POC Arterial 09/13/2024 2:52 PM CDT [facility] PUN SITE POC ART PUNCT 09/13/2024 2:52 PM CDT [facility] Blood 09/13/2024 2:52 PM CDT 09/13/2024 2:55 PM CDT Narrative [facility] - 09/13/2024 2:52 PM CDT References ranges displayed are for Arterial samples. Peña Mata MD POINT OF CARE TESTING Fi nal Result [facility] # [id number] [address] [facility] [facility] [place] [address] * US ABDOMEN LIMITED (09/13/2024 1:27 PM [...] Bipolar affective disorder, currently depressed, moderate (CMS/HCC); HEEAN (generalized anxiety disorder); Protein-calorie malnutrition, moderate; H/O [...] MD US ORDERABLES Final Re sult * EXTRA TUBE (URINE [place]) (09/13/2024 1:12 PM CDT) Only the most recent of6 resultswithin the time period is included. Urine URINE SPECIMEN OBTAINED BY CLEAN CATCH PROCEDURE / Unknown Collection / Unknown 09/13/2024 1:12 PM CDT 09/13/2024 1:20 PM CDT Peña Mata MD URINE ORDERABLES Final R esult [facility] Subtextual [facility] CLIA # [id number] [address] [place] [address] * (ABNORMAL) URINALYSIS WITH REFLEX MICROSCOPIC (09/13/2024 1:12 PM CDT) Only the most recent of6 resultswithin the time period is included. COLOR UA Colorless(A ) Pale to Dark Yellow 09/13/2024 1:[address] [facility] CLARITY UA Clear Clear 09/13/2024 1:29 PM CDT [facility] SPECIFIC GRAVITY UA 1.012 1.003 - 1.035 09/13/2024 1:29 PM CDT [facility] PH UA 5.5 5.0 - 8.0 09/13/2024 1:29 PM CDT [facility] LEUKOCYTE ESTERASE UA 2+(A) Negative 09/13/2024 1:29 PM CDT [facility] NITRITE UA Negative Negative 09/13/2024 1:29 PM CDT [facility] PROTEIN UA Negative Negative 09/13/2024 1:29 PM CDT [facility] GLUCOSE UA 2+(A) Negative 09/13/2024 1:29 PM CDT [facility] KETONES UA Negative Negative 09/13/2024 1:29 PM CDT [facility] UROBILINOGEN UA <2.0 <2.0 mg/dL 1:29 PM CDT [facility] BILIRUBIN UA Negative Negative 09/13/2024 1:29 PM CDT [facility] BLOOD UA Negative Negative 09/13/2024 1:29 PM CDT [facility] WBC UA 0-2 0 - 2 /hpf 09/13/2024 1:29 PM CDT [facility] RBC UA 0-2 0 - 2 /hpf 09/13/2024 1:29 PM CDT [facility] BACTERIA UA 2+(A) Negative /hpf 09/13/2024 1:29 PM CDT [facility] EPITHELIAL CELLS, URINE 0-5 0 - 5 /hpf 09/13/2024 1:29 PM T [facility] HYALINE CAST 0-2 None Seen, 0-2 /lpf 09/13/2024 1:29 PM CDT [facility] Urine URINE SPECIMEN OBTAINED BY CLEAN CATCH PROCEDURE / Unknown Collection / Unknown 09/13/2024 1:12 PM CDT 09/13/2024 1:20 PM CDT us Peña Mata MD URINE ORDERABLES Final R esult [facility] CLIA # [id number] [address] [facility] [place] [address] * URINE CULTURE (09/13/2024 1:12 PM CDT) Pathologist [facility] CULTURE Polymicrobial growth consistent with normal urethral kota and/or colonizing bacteria 09/14/2024 11:22 AM CDT [facility] Urine URINE SPECIMEN OBTAINED BY CLEAN CATCH PROCEDURE / Unknown Collection / Unknown 09/13/2024 1:12 PM CDT 09/13/2024 1:20 PM CDT Peña Mata MD MICROBIOLOGY - GENERAL O RDERABLES Final Result [facility] CLIA # [id number] [facility] [address] * (ABNORMAL) BLOOD GAS VENOUS (09/13/2024 11:47 AM CDT) Only the most recent of6 resultswithin the time period is included. Pathologist [facility] PH BLOOD POC 7.31(L) 7.32 - 7.43 09/13/2024 11:47 AM CDT [facility] PCO2 POC 64(H) 38 - 50 mm Hg 09/13/2024 11:47 AM T [facility] PO2 POC 66(H) 25 - 40 mm Hg 09/13/2024 11:47 AM T [facility] HCO3 (CALC) POC 32(H) 22 - 29 mmol/L 09/13/2024 11:47 AM T [facility] HEMOGLOBIN POC 10.7(L) 12.0 - 18.0 g/dL 09/13/2024 11:47 AM T [facility] BASE EXCESS POC 6(H) -2 - 3 mmol/L 09/13/2024 11:47 AM T [facility] O2 SATURATION POC 94(H) 40 - 70 % 09/13/2024 11:47 AM T [facility] SODIUM POC 136 135 - 145 mmol/L 09/13/2024 11:47 AM T [facility] POTASSIUM POC 4.3 3.5 - 4.9 mmol/L 09/13/2024 11:47 AM T [facility] HEMATOCRIT POC 32(L) 38 - 51 % 09/13/2024 11:47 AM T [facility] PH TEMP CORRECT 7.31(L) 7.32 - 7.43 09/13/2024 11:47 AM T [facility] PCO2 TEMP CORRECT 64(H) 38 - 50 mm Hg 09/13/2024 11:47 AM T [facility] PO2 TEMP CORRECT 66(H) 25 - 40 mm Hg 09/13/2024 11:47 AM T [facility] SPECIMEN SOURCE, GASES POC Venous 09/13/2024 11:47 AM T [facility] CALCIUM IONIZED POC 5.3(H) 4.8 - 5.2 mg/dL 09/13/2024 11:47 AM T [facility] TCO2 (CALC) POC 34(H) 22 - 26 mmol/L 09/13/2024 11:47 AM [facility] SITE POC No Charge 09/13/2024 11:47 AM [facility] Blood, venous 09/13/2024 11: 47 AM CDT 09/13/2024 11:49 AM CDT Peña Mata MD ABG ORDERABLES Final Re sult [facility] CLIA # [id number] [address] [place] [address] [place] [address] * (ABNORMAL) TROPONIN 6 HR, 5TH GEN (09/13/2024 9:16 AM CDT) Only the most recent of10 resultswithin the time period is included. TROPONIN T, 6 HR 5TH GEN 29(H) <11 ng/L 09/13/2024 9:55 AM CDT [facility] DELTA 6HR TROPONIN T 1 See Interp. 09/13/2024 9:55 AM CDT [facility] Blood Venipuncture / Unknown 09/13/2024 9:16 AM CDT 09/13/2024 9:24 AM CDT Narrative [facility] - 09/13/2024 9:55 AM CDT Troponin elevated. Delta indeterminate. us Robbie Yen DO CHEMISTRY ORDERABLES F inal Result [facility] CLIA # [id number] [address] [place] [address] [place] [address] * (ABNORMAL) BASIC METABOLIC PANEL (09/13/2024 9:16 AM CDT) Only the most recent of16 resultswithin the time period is included. SODIUM 139 136 - 145 mmol/L 09/13/2024 9:59 AM T [facility] POTASSIUM 4.5 3.5 - 5.1 mmol/L 09/13/2024 9:59 AM [facility] CHLORIDE 102 98 - 107 mmol/L 09/13/2024 9:59 AM [facility] CO2 25 22 - 29 mmol/L 09/13/2024 9:59 AM T [facility] CALCIUM 9.4 8.6 - 10.0 mg/dL 09/13/2024 9:59 AM T [facility] BUN 20 6 - 20 mg/dL 09/13/2024 9:59 AM T [facility] CREATININE 0.52 0.51 - 0.95 mg/dL 09/13/2024 9:59 AM T [facility] GLUCOSE 257(H) 74 - 99 mg/dL 09/13/2024 9:59 AM T [facility] GFR >60 >=60 mL/min/1.7 3 sq meter 09/13/2024 9:59 AM CDT [facility] Comment:eGFR calculated with 2020 CKD-EPI equation. Vegetarian diet, extremely high or low muscle mass, and may affect results. Cystatin C with Glomerular Filtration Rate is a suitable alternative for these patients. ANION GAP 12 9 - 20 mmol/L 09/13/2024 9:59 AM CDT [facility] Blood Venipuncture / Unknown 09/13/2024 9:16 AM CDT 09/13/2024 9:25 AM CDT Nba Baig MD CHEMISTRY ORDERABLES Fi nal Result Performing Organization Address [facility] Co de Phone Number [facility] CLIA # [id number] [facility] [address] * (ABNORMAL) TROPONIN 2 HR, 5TH GEN (09/12/2024 11:02 PM CDT) Only the most recent of14 resultswithin the time period is included. TROPONIN T, 2 HR 5TH GEN 27(H) <=10 ng/L 09/12/2024 11:41 PM CDT [facility] DELTA 2HR TROPONIN T -1 See Interp. 09/12/2024 11:41 PM CDT [facility] Blood Venipuncture / Unknown 09/12/2024 11:02 PM CDT 09/12/2024 11:[address] [facility] - 09/12/2024 11:41 PM CDT Troponin elevated. Delta not changing. us Robbie Yen DO CHEMISTRY ORDERABLES F inal Result Performing Organization Address [facility] Co de Phone Number [facility] CLIA # [id number] [address] [address] * RESPIRATORY PATHOGEN PCR PANEL (09/12/2024 11:02 PM CDT) Only the most recent of7 resultswithin the time period is included. Respiratory Pathogen PCR Panel NOT DETECTED No respiratory pathogen nucleic acids detected. 09/13/2024 12:31 AM CDT [facility] COVID-19 PCR NOT DETECTED Not Detected 09/13/2024 12:31 AM CDT [facility] Upper Respiratory ENTIRE NASOPHARYNX / Unknown Collection / Unknown 09/12/2024 11:02 PM CDT 09/12/2024 11:08 PM CDT Narrative [facility] - 09/13/2024 12:31 AM CDT The [...] DO MICROBIOLOGY - GENERAL ORDERABLES Final Result [facility] CLIA # [id number] [address] [place] [address] * XR CHEST PA OR AP 1 VW (09/12/2024 10:18 PM CDT) Only the most recent of17 resultswithin the time period is included. Anatomical Region Laterality Modality Chest Computed Radiogr [...] EXTRA TUBE (BLUE) (09/12/2024 9:32 PM CDT) Only the most recent of3 resultswithin the time period is included. Blood Venipuncture / Unknown 09/12/2024 9:32 PM CDT 09/12/2024 10:59 PM CDT External Provider [facility] HEMATOLOGY ORDERABLES Jana l Result [facility] CLIA # [id number] [address] [place] [address] * (ABNORMAL) TROPONIN BASELINE, 5TH GEN (09/12/2024 9:32 PM CDT) Only the most recent of14 resultswithin the time period is included. TROPONIN T, BASELINE 5TH GEN 28(H) <=10 ng/L 09/12/2024 10:15 PM CDT [facility] Blood Venipuncture / Unknown 09/12/2024 9:32 PM CDT 09/12/2024 9:[address] [facility] - 09/12/2024 10:15 PM CDT Troponin elevated. Robbie Yen DO CHEMISTRY ORDERABLES F inal Result Performing Organization Address [facility] Co de Phone Number [facility] CLIA # [id number] [address] [place], [place] [address] * (ABNORMAL) BRAIN NATRIURETIC PEPTIDE, BNP OR PROBNP (09/12/2024 9:32 PM CDT) Only the most recent of12 resultswithin the time period is included. PROBNP, N TERMINAL 623(H) 0 - 125 pg/mL 09/12/2024 10:[address] [facility] Comment: INTERPRETIVE COMMENT based on diagnosis: [...] ORDERABLES F inal Result Performing Organization Address [facility]/ZIP Co de Phone Number [facility] CLIA # [id number] [address] [place], [place] [address] * EKG 12-LEAD (09/12/2024 9:23 PM CDT) Only the most recent of23 resultswithin the time period is included. 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 : 1965 Requested By: Order Number: [id number] Reading : Kyler Helm Measurements Intervals [place] Rate: 95 P: 33 VT: 138 QRS: 48 QRSD: 80 T: -10 QT: 332 QTc: 417 Interpretive Statements Normal sinus rhythm Possible Left atrial enlargement Possible Inferior infarct, age undetermined Abnormal ECG Electronically Signed On 09-13-2024 18:08:49 CDT by Kyler Helm Procedure Note Kyler Helm MD - 09/13/[address] [address] Test Date: 2024-09-12 Pat Name: LE DIAZ Department: 11 Room: 18 18 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: [id number] : 1965 Requested By: Order Number: [id number] Reading : Kyler Helm Measurements Intervals [place] Rate: 95 P: 33 VT: 138 QRS: 48 QRSD: 80 T: -10 QT: 332 QTc: 417 Interpretive Statements Normal sinus rhythm Possible Left atrial enlargement Possible Inferior infarct, age undetermined Abnormal ECG Electronically Signed On 09-13-2024 18:08:49 CDT by Kyler Helm us Robbie Yen DO ECG ORDERABLES Final Result INTERFACE SYSTEM Refer to clinic/hospital department * Critical Care (09/12/2024 9:09 PM CDT) Narrative Robbie Yen, - 09/12/2024 9:09 PM CDT Robbie Yen, 09/12/2024 11:09 PM Critical Care Performed by: [...] DO PROCEDURE/MINOR SURGIC AL ORDERABLES Final Result * (ABNORMAL) MANUAL DIFFERENTIAL (09/10/2024 9:30 PM CDT) SEGMENTED NEUTROPHILS 85(H) 36 - 66 % 09/10/2024 10:01 PM [facility] LYMPHOCYTES RELATIVE 10(L) 24 - 44 % 09/10/2024 10:01 PM [facility] MONOCYTES RELATIVE 2(L) 4 - 10 % 2024 10:01 PM [facility] METAMYELOCYTES RELATIVE 1 0 - 1 % 09/10/2024 10:01 PM [facility] MYELOCYTES - REL (DIFF) 2(H) 0 - 1 % 09/10/2024 10:01 PM [facility] PLATELET EST. Adequate 09/10/2024 10:01 PM [facility] NEUTROPHILS ABSOLUTE COUNT 6.21 2.00 - 8.00 K/uL 09/10/2024 10:01 PM [facility] LYMPHOCYTES ABSOLUTE 0.73(L) 1.20 - 4.00 K/uL 09/10/2024 10:01 PM [facility] ATYPICAL LYMPHS ABSOLUTE 09/10/2024 10:01 PM [facility] MONOCYTES ABSOLUTE 0.15 0.10 - 0.60 K/uL 09/10/2024 10:01 PM [facility] ANISOCYTOSIS 1+ /hpf 09/10/2024 10:01 PM CDT [facility] COTTON-JOLLY BODIES Present /hpf 09/10/2024 10:01 PM CDT [facility] TOTAL CELLS COUNTED IN DIFF 100 09/10/2024 10:01 PM CDT [facility] Blood Venipuncture / Unknown 09/10/2024 9:30 PM CDT 09/10/2024 9:33 PM CDT Layton Barrow MD HEMATOLOGY ORDERABLES COM Final Result [facility] CLIA # [id number] [address] [address] [place] [address] * D-DIMER (09/10/2024 9:30 PM CDT) Only the most recent of2 resultswithin the time period is included. D-DIMER QUANT <0.27 0.00 - 0.50 ug/mL FEU 09/10/2024 10:03 PM CDT [facility] Blood Venipuncture / Unknown 09/10/2024 9:30 PM CDT 09/10/2024 9:33 PM CDT Narrative [facility] - 09/10/2024 10:03 PM CDT D-Dimer assay [...] ug/mL FEU 71-80 years: 0.71-0.80 ug/mL FEU us Layton Barrow MD HEMATOLOGY ORDERABLES [facility] # [id number] [address] [facility] [place] [address] * XR CHEST PA AND LATERAL 2 [...] acute radiographic findings or significant interval change. us Don Causey DO DIAGNOSTIC IMAGING ORDERABLES F inal Result * (ABNORMAL) PROCALCITONIN (08/30/2024 5:27 AM CDT) Only the most recent of3 resultswithin the time period is included. PROCALCITONIN 0.12(H) <=0.08 ng/mL 08/30/2024 6:[address] [facility] Blood Venipuncture / Unknown 08/30/2024 5:27 AM CDT 08/30/2024 5:[address] [facility] - 08/30/2024 6:32 AM CDT The utility of procalcitonin is limited/NOT recommended in certain populations (e.g. newborns, dialysis/ESRD, patients with recent major surgery/trauma/gong, liver cirrhosis, viral hepatitis, certain cancers, etc.). Procalcitonin levels MUST be interpreted in the context of the patient's clinical condition and CANNOT be solely relied upon for diagnosis of infection. <0.25 ng/mL: Bacterial infection unlikely, particularly lower respiratory tract infections. <0.5 ng/mL: Low risk for progression to severe sepsis/septic shock. Localized infection possible. Measurements done early (<6 hours) after systemic process starts may still be low. 0.5-2 ng/mL: Moderate risk for progression to severe sepsis/septic shock. >2 ng/mL: High risk for progression to severe sepsis/septic shock. If antibiotics ARE administered, repeat testing is recommended every 2-3 days to help guide antibiotic cessation. Once a decrease of 80% or more has occurred from baseline, discontinuation of antibiotics should strongly be considered in clinically stable patients. Procalcitonin is produced in the setting of systemic inflammation, particularly bacterial infections. It is detectable within 2-4 hours and peaks within 6-24 hours. Stefanie Ferrara MD CHEMISTRY ORDERABLES Final Resul t [facility] CLIA # [id number] [address] [place] [address] * INFLUENZA A/B, RSV AND COVID-19 PCR PANEL (08/30/2024 2:52 AM CDT) Only the most recent of4 resultswithin the time period is included. COVID-19 PCR NOT DETECTED Not Detected 08/31/19 3:49 AM CDT [facility] Influenza A by PCR NOT DETECTED Not Detected 08/30/2024 3:49 AM CDT [facility] Influenza B by PCR NOT DETECTED Not Detected 08/30/2024 3:49 AM CDT [facility] RSV by PCR NOT DETECTED Not Detected 08/30/2024 3:49 AM CDT [facility] Upper Respiratory ENTIRE NASOPHARYNX / Unknown Collection / Unknown 08/30/2024 2:52 AM CDT 08/30/2024 2:55 AM CDT Narrative [facility] - 08/30/2024 3:49 AM CDT This test has been authorized by the FDA under an Emergency Use Authorization for use by authorized laboratories. This test has been validated in accordance with the FDA's guidance regarding Coronavirus Disease-2019 testing. Optimum specimen types and timing for peak viral levels during infection have not been determined. A negative RT-PCR result does not rule out infection with the 2019-Novel Coronavirus. Danitza Wyane MD MICROBIOLOGY - GEN ERAL ORDERABLES Final Result [facility] CLIA # [id number] [address] [place] [address] * CT ABDOMEN PELVIS W CONTRAST (08/29/2024 11:52 PM CDT) Anatomical Region Laterality Modality Abdomen Computed Tomogra phy 08/29/2024 11:5 3 PM CDT Impressions 08/30/2024 12:23 AM CDT IMPRESSION: 1. Air-fluid level in the otherwise unremarkable urinary bladder of uncertain etiology.. 2. 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 3. Unchanged mild compression deformity of L1. 4. Hepatic steatosis 5. Prior splenectomy. Prior hysterectomy. Narrative 08/30/2024 12:23 AM CDT Exam: CT ABDOMEN PELVIS W CONTRAST Date/Time [...] again identified. Multilevel degenerative change is present. Procedure Note Yoselyn Leyva MD - 08/30/2024 Exam: CT ABDOMEN PELVIS W CONTRAST Date/Time [...] again identified. Multilevel degenerative change is present. IMPRESSION: 1. Air-fluid level in the otherwise unremarkable urinary bladder of uncertain etiology.. 2. 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 3. Unchanged mild compression deformity of L1. 4. Hepatic steatosis 5. Prior splenectomy. Prior hysterectomy. Danitza Wayne MD CT ORDERABLES Fi nal Result * LIPASE (08/29/2024 8:09 PM CDT) Only the most recent of2 resultswithin the time period is included. LIPASE 19 13 - 60 U/L 08/29/2024 8:54 PM CDT [facility] Blood Venipuncture / Unknown 08/29/2024 8:09 PM CDT 08/29/2024 8:18 PM CDT Danitza Wayne MD CHEMISTRY ORDERABL ES Final Result [facility] CLIA # [id number] [address] [facility] [place] [address] * BLOOD CULTURE (08/22/2024 5:19 PM CDT) Only the most recent of12 resultswithin the time period is included. BLOOD CULTURE No growth 08/27/2024 7:30 PM CDT [facility] Blood (Peripheral) Venipuncture / Unknown 08/22/2024 5:19 PM CDT 08/22/2024 5:24 PM CDT Austin Robertson MD MICROBIOLOGY - GEN ERAL ORDERABLES Final Result [facility] CLIA # [id number] [address] [place] [address] * PTT (08/22/2024 4:32 PM CDT) Only the most recent of3 resultswithin the time period is included. Pathologist [facility] PTT 25.0 24.8 - 37.2 seconds 08/22/2024 4:57 PM CDT [facility] Blood Venipuncture / Unknown 08/22/2024 4:32 PM CDT 08/22/2024 4:38 PM CDT Narrative [facility] - 08/22/2024 4:57 PM CDT Therapeutic Range: Hi-level PE/DVT heparin protocol 80.1 - 95.0 sec Lo-level PE/DVT heparin protocol 70.1 - 85.0 sec Cardiac Heparin Protocol 70.1 - 100.0 sec us Austin Robertson MD HEMATOLOGY ORDERAB LES Final Result [facility] CLIA # [id number] [address] [place] [address] * CT CHEST WO CONTRAST (08/18/2024 11:42 AM CDT) Anatomical Region Laterality Modality Chest Computed Tomogra phy 08/18/2024 11:1 0 AM CDT Impressions 08/18/2024 11:58 AM CDT IMPRESSION: Please see below. Exam: Chest CT without IV contrast Date/Time of Exam: 08/18/2024 11:42 AM Reason For Exam: Pneumonia, complication suspected, xray done. Diagnosis: COPD with exacerbation (CMS/HCC). Technique: Axial tomograms obtained through the thorax without IV contrast. Findings: Comparison to chest and abdomen pelvic CT of 08/14/2024. Trace subpleural scarring of both hemithoraces with unchanged small chronic rounded atelectasis within left lower lobe. No new concerning pulmonary lesion. No pleural effusion. Thoracic aorta nonaneurysmal. No axillary or intrathoracic lymphadenopathy. Imaged upper abdomen with geographic hepatic steatosis. No focal concerning skeletal lesion. IMPRESSION: No significant pulmonary pathology. Narrative Procedure Note Blanca Shell MD - 08/18/2024 IMPRESSION: Please see below. Exam: Chest CT without IV contrast Date/Time of Exam: 08/18/2024 11:42 AM Reason For Exam: Pneumonia, complication suspected, xray done. Diagnosis: COPD with exacerbation (CMS/HCC). Technique: Axial tomograms obtained through the thorax without IV contrast. Findings: Comparison to chest and abdomen pelvic CT of 08/14/2024. Trace subpleural scarring of both hemithoraces with unchanged small chronic rounded atelectasis within left lower lobe. No new concerning pulmonary lesion. No pleural effusion. Thoracic aorta nonaneurysmal. No axillary or intrathoracic lymphadenopathy. Imaged upper abdomen with geographic hepatic steatosis. No focal concerning skeletal lesion. IMPRESSION: No significant pulmonary pathology. Michael Tovar MD CT ORDERABLES Final Result * MAGNESIUM LEVEL (08/18/2024 6:01 AM CDT) Only the most recent of6 resultswithin the time period is included. MAGNESIUM 1.7 1.6 - 2.6 mg/dL 08/18/2024 8:[address] [facility] Blood Venipuncture / Unknown 08/18/2024 6:01 AM CDT 08/18/2024 6:40 AM CDT us Nba Baig MD CHEMISTRY ORDERABLES Fi nal Result Performing Organization Address [facility] Co de Phone Number [facility] CLIA # [id number] [address] [place] [id number] * VITAMIN B12 AND FOLATE (08/16/2024 4:59 AM CDT) Only the most recent of2 resultswithin the time period is included. Pathologist [facility] VITAMIN B12 374 211 - 946 pg/mL 08/16/2024 6:23 AM CDT [facility] FOLATE, SERUM 14.5 3.1 - 17.5 ng/mL 08/16/2024 6:23 AM CDT [facility] Blood Venipuncture / Unknown 08/16/2024 4:59 AM CDT 08/16/2024 5:05 AM CDT Nayely Mena MD CHEMISTRY ORDERABLES Final Resul t Performing Organization Address [facility] Co de Phone Number [facility] CLIA # [id number] [address] [place] [address] * CT HUMERUS WO CONTRAST LEFT (08/15/2024 7:54 AM CDT) Anatomical Region Laterality Modality Upper Extremity Computed Tomogra phy 08/15/2024 7:41 AM CDT Narrative 08/15/2024 8:55 AM CDT Exam: CT HUMERUS WO CONTRAST LEFT Date/Time of Exam: 08/15/2024 7:54 AM Reason For Exam: occult fracture. Diagnosis: Closed compression fracture of body of L1 vertebra (CMS/HCC); Dyspnea, unspecified type; Rhinovirus infection; Enterovirus enteritis. Technique: CT of the left humerus was performed without the administration of intravenous contrast. Contrast: None. Comparison: Plain films from 08/14/2024. Findings: The humerus is intact without acute fracture. Evaluation of the proximal radius and ulna is mildly limited by motion and field of view, but no definite fracture noted. No joint effusion noted. No focal soft tissue abnormality. Remote left lateral rib fracture partially imaged. ++++++++++++++++++++ IMPRESSION No acute osseous findings. Procedure Note Tarik Aranda MD - 08/15/2024 Exam: CT HUMERUS WO CONTRAST LEFT Date/Time of Exam: 08/15/2024 7:54 AM Reason For Exam: occult fracture. Diagnosis: Closed compression fracture of body of L1 vertebra (CMS/HCC); Dyspnea, unspecified type; Rhinovirus infection; Enterovirus enteritis. Technique: CT of the left humerus was performed without the administration of intravenous contrast. Contrast: None. Comparison: Plain films from 08/14/2024. Findings: The humerus is intact without acute fracture. Evaluation of the proximal radius and ulna is mildly limited by motion and field of view, but no definite fracture noted. No joint effusion noted. No focal soft tissue abnormality. Remote left lateral rib fracture partially imaged. ++++++++++++++++++++ IMPRESSION No acute osseous findings. Nba Baig MD CT ORDERABLES Final R esult * CT CHEST ABDOMEN PELVIS W CONT (08/14/2024 8:32 PM CDT) Anatomical Region Laterality Modality Chest Computed Tomogra phy 08/14/2024 8:32 PM CDT Impressions 08/14/2024 8:51 PM CDT Impression: 1. No acute abnormalities in the chest. 2. Diffuse pulmonary scarring. Contiguous axial images were obtained through the abdomen and pelvis. Sagittal and coronal reformatted images are included. The study was performed following a CT of the chest utilizing the same contrast bolus. The liver is diffusely hypodense consistent with diffuse hepatic fatty infiltration. No focal hepatic lesions are seen. There is no evidence of any abdominal aortic aneurysm or dissection. The appendix is not directly visualized however there is no evidence of any inflammatory changes in the fat surrounding the cecum. There is no evidence of any abnormal contrast extravasation from the ureters, renal collecting systems or urinary bladder. The spleen, pancreas, kidneys and adrenals are unremarkable. There is no evidence of any abnormal soft tissue mass, adenopathy or abnormal free fluid collections in the abdomen or pelvis. Bowel loops are nondilated. There is no evidence of any free intraperitoneal air. An acute compression fractures present involving the superior endplate of L1 vertebral body with mild anterior wedging. There is no appreciable posterior displacement of any fracture fragments. Impression: 1. Acute L1 compression fracture. 2. Diffuse hepatic fatty infiltration. Narrative 08/14/2024 8:51 PM CDT Exam: CT CHEST ABDOMEN PELVIS W CONT Date/Time of Exam: 08/14/2024 8:32 PM Reason For Exam: Polytrauma, blunt Diagnosis: See Reason for Exam Contiguous axial images were obtained through the chest. Sagittal and coronal reformatted images are included. 100 mL of Isovue-300 was given intravenously. There is no evidence of any thoracic aortic aneurysm or dissection. No mediastinal hematoma. Lymph nodes in the mediastinum all measure under 1 cm along their short axis. There is no evidence of any abnormal soft tissue masses in the chest. Diffuse scarring is present in the lungs. There is no evidence of any pulmonary contusion or infiltrates. There is no evidence of any pleural effusion or other abnormal fluid collections. No pneumothorax is seen. No acute fractures or dislocations are seen. Procedure Note Scooby Mcgowan MD - 08/14/2024 Exam: CT CHEST ABDOMEN PELVIS W CONT Date/Time of Exam: 08/14/2024 8:32 PM Reason For Exam: Polytrauma, blunt Diagnosis: See Reason for Exam Contiguous axial images were obtained through the chest. Sagittal and coronal reformatted images are included. 100 mL of Isovue-300 was given intravenously. There is no evidence of any thoracic aortic aneurysm or dissection. No mediastinal hematoma. Lymph nodes in the mediastinum all measure under 1 cm along their short axis. There is no evidence of any abnormal soft tissue masses in the chest. Diffuse scarring is present in the lungs. There is no evidence of any pulmonary contusion or infiltrates. There is no evidence of any pleural effusion or other abnormal fluid collections. No pneumothorax is seen. No acute fractures or dislocations are seen. Impression: 1. No acute abnormalities in the chest. 2. Diffuse pulmonary scarring. Contiguous axial images were obtained through the abdomen and pelvis. Sagittal and coronal reformatted images are included. The study was performed following a CT of the chest utilizing the same contrast bolus. The liver is diffusely hypodense consistent with diffuse hepatic fatty infiltration. No focal hepatic lesions are seen. There is no evidence of any abdominal aortic aneurysm or dissection. The appendix is not directly visualized however there is no evidence of any inflammatory changes in the fat surrounding the cecum. There is no evidence of any abnormal contrast extravasation from the ureters, renal collecting systems or urinary bladder. The spleen, pancreas, kidneys and adrenals are unremarkable. There is no evidence of any abnormal soft tissue mass, adenopathy or abnormal free fluid collections in the abdomen or pelvis. Bowel loops are nondilated. There is no evidence of any free intraperitoneal air. An acute compression fractures present involving the superior endplate of L1 vertebral body with mild anterior wedging. There is no appreciable posterior displacement of any fracture fragments. Impression: 1. Acute L1 compression fracture. 2. Diffuse hepatic fatty infiltration. Aki Booth DO CT ORDERABLES Final R esult * TSH REFLEXIVE (08/14/2024 7:05 PM CDT) Only the most recent of2 resultswithin the time period is included. TSH 0.48 0.27 - 4.20 uIU/mL 08/14/2024 8:[address] [facility] Blood Venipuncture / Unknown 08/14/2024 7:05 PM CDT 08/14/2024 7:14 PM CDT Aki Booth DO CHEMISTRY ORDERABLES Fi nal Result [facility] CLIA # [id number] [address] [address] [place] [address] * XR HUMERUS 2+ VW LEFT (08/14/2024 6:50 PM CDT) Anatomical Region Laterality Modality Upper Extremity Computed Radiogr aphy 08/14/2024 6:50 PM CDT Impressions 08/14/2024 7:16 PM CDT IMPRESSION: Fat pad signs are present indicating that an occult fracture is likely present. Narrative 08/14/2024 7:16 PM CDT Exam: XR HUMERUS 2+ VW LEFT Date/Time of Exam: 08/14/2024 6:50 PM Reason For Exam: Injury Diagnosis: See Reason for Exam AP and lateral views of the left humerus are submitted. No definite fracture is visualized however posterior fat pad and anterior sail signs are present which suggest an occult fracture is likely present. No dislocation is seen. Procedure Note Scooby Mcgowan MD - 08/14/2024 Exam: XR HUMERUS 2+ VW LEFT Date/Time of Exam: 08/14/2024 6:50 PM Reason For Exam: Injury Diagnosis: See Reason for Exam AP and lateral views of the left humerus are submitted. No definite fracture is visualized however posterior fat pad and anterior sail signs are present which suggest an occult fracture is likely present. No dislocation is seen. IMPRESSION: Fat pad signs are present indicating that an occult fracture is likely present. Aki Booth DO DIAGNOSTIC IMAGING ORDRoman [facility] Final Result * (ABNORMAL) DRUG SCREEN, URINE (08/04/2024 11:44 AM CDT) Only the most recent of2 resultswithin the time period is included. Pathologist [facility] AMPHETAMINE QUAL, URINE Negative Negative 08/04/2024 12:30 PM CDT [facility] BARBITURATE QUAL, URINE Negative Negative 08/04/2024 12:30 PM CDT [facility] BENZODIAZEPINE QUAL, URINE Negative Negative 08/04/2024 12:30 PM CDT [facility] COCAINE QUAL URINE Negative Negative 08/04/2024 12:30 PM CDT [facility] OPIATE QUAL, URINE Negative Negative 08/04/2024 12:30 PM CDT [facility] CANNABINOIDS QUAL, URINE Negative Negative 08/04/2024 12:30 PM CDT [facility] OXYCODONE QUAL, URINE Presumptive Positive(A) Negative 08/04/2024 12:30 PM CDT [facility] METHADONE QUAL, URINE Negative Negative 08/04/2024 12:30 PM CDT [facility] FENTANYL QUAL, URINE Negative Negative 08/04/2024 12:30 PM CDT [facility] CREATININE, URINE 11.9(L) 29.0 - 226.0 mg/dL 08/04/2024 12:30 PM CDT [facility] Comment:Reference Range vari es with fluid intake and diet. Urine URINE SPECIMEN OBTAINED BY CLEAN CATCH PROCEDURE / Unknown Collection / Unknown 08/04/2024 11:44 AM CDT 08/04/2024 11:51 AM CDT [facility] - 08/04/2024 12:30 PM CDT When Urine Creatinine is <20 mg/dL, the sample may have been diluted. Further testing with a new sample is recommended, if indicated. This test is a qualitative screen. The presumptive positive results should not be used for legal purposes. If confirmation of results is desired, the lab must be contacted without delay. Drug Ref. Range Screening Threshold Amphetamines Negative 500 ng/mL Barbiturates Negative 200 ng/mL Benzodiazepines Negative 100 ng/mL Cannabinoids Negative 50 ng/mL Cocaine Metabolite Negative 300 ng/mL Opiate Negative 300 ng/mL Oxycodone Negative 100 ng/mL Methadone Negative 300 ng/mL Fentanyl Negative 5 ng/mL Danny Mclean MD URINE ORDERABLES Final Result [facility] CLIA # [id number] [address] [place] [address] * UNFRACTIONATED HEPARIN MONITORING (08/04/2024 9:09 AM CDT) ANTI-XA UNFRAC HEP <0.10 See Interpretation IU/mL 08/04/2024 9:37 AM CDT [facility] Blood Venipuncture / Unknown 08/04/2024 9:09 AM CDT 08/04/2024 9:17 AM CDT [facility] - 08/04/2024 9:37 AM CDT Therapeutic Range: PT/DVT Heparin Protocol 0.3 - 0.7 IU/ml Cardiac Heparin Protocol 0.3 - 0.6 IU/ml The reference range for this test is specific to the anticoagulant and is not appropriate for monitoring patients on a DOAC protocol. us Lenin Amezquita MD HEMATOLOGY ORDERABLES Final Resu lt [facility] CLIA # [id number] [facility] [address] [place] [address] * (ABNORMAL) CBC WITHOUT DIFFERENTIAL (08/04/2024 9:09 AM CDT) Only the most recent of4 resultswithin the time period is included. [facility] WBC 9.5 4.8 - 10.8 K/uL 08/04/2024 9:24 AM [facility] NRBCS 1(H) <1 % 08/04/2024 9:24 AM T [facility] RBC 4.14(L) 4.20 - 5.40 M/uL 08/04/2024 9:24 AM [facility] HEMOGLOBIN 13.2 12.0 - 16.0 g/dL 08/04/2024 9:24 AM [facility] HEMATOCRIT 41.7 36.0 - 46.0 % 08/04/2024 9:24 AM T [facility] MCV 100.7 84.0 - 103.0 fL 08/04/2024 9:24 AM CDT [facility] MCH 31.9 27.0 - 34.0 pg 08/04/2024 9:24 AM T [facility] MCHC 31.7 30.0 - 35.0 g/dL 08/04/2024 9:[facility] 178 140 - 440 K/uL 08/04/2024 9:24 AM [facility] MPV 10.0 8.9 - 12.8 fL 08/04/2024 9:24 AM [facility] RDW 18.4(H) 11.0 - 14.5 % 08/04/2024 9:24 AM CDT [facility] RDW-STDEV 68.4(H) 37.0 - 54.0 fL 08/04/2024 9:24 AM CDT [facility] Blood Venipuncture / Unknown 08/04/2024 9:09 AM CDT 08/04/2024 9:17 AM CDT us Lenin Amezquita MD HEMATOLOGY ORDERABLES Final Resu lt [facility] CLIA # [id number] [address] [place] [address] * HCG QUANTITATIVE, BLOOD (08/04/2024 4:11 AM CDT) HCG QUANT, BLOOD 0.1 0.0 - 1.0 mIU/mL 08/04/2024 5:12 AM CDT [facility] Comment: HCG Quantitative Reference Range Male <= 2 mIU/mL Female Non premenopausal <= 1 mIU/mL Non postmenopausal <= 7 mIU/mL Gestational Age HCG Concentration 3 Weeks 5.8 - 71.2 mIU/mL 4 Weeks 9.5 - 750 mIU/mL 5 Weeks 217 - 7138 mIU/mL 6 Weeks 158 - 31,795 mIU/mL 7 Weeks 3697 - 163,563 mIU/mL 8 Weeks 32,065 - 149,571 mIU/mL 9 Weeks 63,803 - 151,410 mIU/mL 10 Weeks 46,509 - 186,977 mIU/mL 12 Weeks 27,832 - 210,612 mIU/mL 14 Weeks 13,950 - 62,530 mIU/mL 15 Weeks 12,039 - 70,971 mIU/mL 16 Weeks 9040 - 56,451 mIU/mL 17 Weeks 8175 - 55,868 mIU/mL 18 Weeks 8099 - 58,176 mIU/mL Blood Venipuncture / Unknown 08/04/2024 4:11 AM CDT 08/04/2024 4:16 AM CDT us Danny Mclean MD CHEMISTRY ORDERABLES Final Res ult [facility] CLIA # [id number] [address] [facility] [place] [address] * CTA CHEST W AND/OR WO CONTRAST (08/02/2024 11:09 PM CDT) Only the most recent of3 resultswithin the time period is included. Anatomical Region Laterality Modality Chest Computed Tomogra phy 08/02/2024 11:0 3 PM CDT Impressions 08/03/2024 8:24 AM CDT IMPRESSION: Please see below. Exam: CTA CHEST W AND/OR WO CONTRAST Date/Time of Exam: 08/02/2024 11:09 PM REASON FOR EXAM: left chest pain, ? infiltrate vs PE. DIAGNOSIS: See Reason for Exam. Technique: CTA of the chest was performed prior to and/or following the administration of intravenous contrast. Post-processing was performed, including sagittal and coronal reformations and 3-D reconstruction. Contrast (if used): 100 mL Isovue-300 Findings: Comparison is made to the prior exam 07/28/2024. Evaluation of the segmental and subsegmental branches of the lung bases is limited due to contrast bolus timing and motion artifact. There is no gross evidence of central PE. Pulmonary caliber. There is evidence of right ventricular strain. There are bilateral coronary stents. Minimal atherosclerotic changes are seen in the thoracic aorta. The left vertebral artery is dominant. There is mild left basilar consolidation, similar to the prior examination. Subsegmental atelectasis is seen elsewhere. The central airways are patent. There is no pneumothorax or pleural effusion. No mediastinal or hilar adenopathy is identified. Hepatic steatosis and hepatomegaly are partially imaged. The spleen is absent. Imaged abdominal structures are otherwise unremarkable. Cervicothoracic spondylosis is partially imaged ACDF changes are again noted. IMPRESSION: 1. No gross evidence of pulmonary embolus allowing for limited evaluation of the segmental and subsegmental branches in the lung bases. 2. Otherwise, no change since 07/28/2024 Narrative Procedure Note Meir Acosta MD - 08/03/2024 IMPRESSION: Please see below. Exam: CTA CHEST W AND/OR WO CONTRAST Date/Time of Exam: 08/02/2024 11:09 PM REASON FOR EXAM: left chest pain, ? infiltrate vs PE. DIAGNOSIS: See Reason for Exam. Technique: CTA of the chest was performed prior to and/or following the administration of intravenous contrast. Post-processing was performed, including sagittal and coronal reformations and 3-D reconstruction. Contrast (if used): 100 mL Isovue-300 Findings: Comparison is made to the prior exam 07/28/2024. Evaluation of the segmental and subsegmental branches of the lung bases is limited due to contrast bolus timing and motion artifact. There is no gross evidence of central PE. Pulmonary caliber. There is evidence of right ventricular strain. There are bilateral coronary stents. Minimal atherosclerotic changes are seen in the thoracic aorta. The left vertebral artery is dominant. There is mild left basilar consolidation, similar to the prior examination. Subsegmental atelectasis is seen elsewhere. The central airways are patent. There is no pneumothorax or pleural effusion. No mediastinal or hilar adenopathy is identified. Hepatic steatosis and hepatomegaly are partially imaged. The spleen is absent. Imaged abdominal structures are otherwise unremarkable. Cervicothoracic spondylosis is partially imaged ACDF changes are again noted. IMPRESSION: 1. No gross evidence of pulmonary embolus allowing for limited evaluation of the segmental and subsegmental branches in the lung bases. 2. Otherwise, no change since 07/28/[address] ORDERABLES Final Resu lt * TSH (08/02/2024 9:23 PM CDT) Only the most recent of2 resultswithin the time period is included. TSH 2.21 0.27 - 4.20 uIU/mL 08/02/2024 10:[address] [facility] Blood Venipuncture / Unknown 08/02/2024 9:23 PM CDT 08/02/2024 9:34 PM CDT us Tiffanie Childress CARTON MARKER MACHINE CHEMISTRY ORDERABLES Final Res ult Performing Organization Address [facility] Co de Phone Number [facility] CLIA # [id number] [address] [facility] [place] [phone] * (ABNORMAL) VANCOMYCIN LEVEL TROUGH (07/30/2024 11:41 AM CDT) [facility] VANCOMYCIN, TROUGH 9.7(L) 10.0 - 17.0 ug/mL 07/30/2024 12:26 PM CDT [facility] Blood Venipuncture / Unknown 07/30/2024 11:41 AM CDT 07/30/2024 11:54 AM CDT us Jennifer Sanchez MD CHEMISTRY ORDERABLES Final Resu lt Performing Organization Address [facility] de Phone Number [facility] CLIA # [id number] [address] [id number] * PHOSPHORUS (07/29/2024 6:04 AM CDT) [facility] PHOSPHORUS 2.7 2.5 - 4.5 mg/dL 07/29/2024 6:50 AM CDT [facility] Blood Venipuncture / Unknown 07/29/2024 6:04 AM CDT 07/29/2024 6:08 AM CDT us Efraín Dey DO CHEMISTRY ORDERABLES Final R esult Performing Organization Address [facility] Co de Phone Number [facility] CLIA # [id number] [address] [facility] [place], [place] [phone] * (ABNORMAL) HEMOGLOBIN A1C (07/28/2024 9:29 PM CDT) [facility] HEMOGLOBIN A1C 8.9(H) <=5.6 % 07/30/2024 8:43 AM CDT [facility] EST. AVG GLUCOSE, A1C 209 mg/dL 07/30/2024 8:43 AM CDT [facility] Blood Venipuncture / Unknown 07/28/2024 9:29 PM CDT 07/28/2024 9:50 PM CDT Narrative [facility] - 07/30/2024 8:43 AM CDT HGB A1C INTERPRETATION NORMAL: <5.7% PRE-DIABETES: 5.7 - 6.4% DIABETES: 6.5% OR GREATER us Efraín Dey DO CHEMISTRY ORDERABLES Final R esult Performing Organization Address City/[facility]/ZIP Co de Phone Number [facility] CLIA # [id number] [id number] [place] [address] * EXTRA TUBE (SST/GOLD) (07/28/2024 3:47 PM CDT) Blood Venipuncture / Unknown 07/28/2024 3:47 PM CDT 07/28/2024 3:56 PM CDT us Aki Briceno DO CHEMISTRY ORDERABLES Final Re sult Performing Organization Address City/[facility]/ZIP Co de Phone Number [facility] CLIA # [id number] [address] [place] [address] * PNEUMONIA PATHOGEN PCR PANEL (07/23/2024 6:15 AM CDT) [facility] Pneumonia Pathogen PCR Panel NOT DETECTED No nucleic acids detected. 07/23/2024 1:18 PM CDT [facility] Sputum COUGHED SPUTUM SPECIMEN / Unknown Collection / Unknown 07/23/2024 6:15 AM CDT 07/23/2024 6:15 AM CDT Narrative [facility] - 07/23/2024 1:18 PM CDT NOTE: Per the research epidemiologist, this current lot of reagent may be insensitive for the full detection of adenoviruses. If adenovirus is within the differential diagnosis, the specimen may be submitted to a reference laboratory for further testing. If desired, order [id number] Lab Test, stating Adenovirus by PCR testing in the ordering comment and notify the Microbiology lab at [phone]. A negative result does not exclude the possibility of infection. A semi-quantitative (copies/mL) result is provided for bacteria. This panel does not distinguish between nucleic acid from live or bacteria or virus. Culture is needed for recovery of bacterial isolates and antimicrobial susceptibility testing. The Film Array Pneumonia Pathogen PCR Panel is a multiplexed nucleic acid detection test for 33 targets of bacteria, viruses, and resistance markers in respiratory specimens that cause pneumonia. Bacteria: Acinetobacter calcoaceticus-baumannii complex Enterobacter cloacae complex Escherichia coli Haemophilus influenzae Klebsiella aerogenes Klebsiella oxytoca Klebsiella pneumoniae group Moraxella catarrhalis Proteus spp. Pseudomonas aeruginosa Serratia marcescens Staphylococcus aureus Streptococcus agalactiae Streptococcus pneumoniae Streptococcus pyogenes Atypical Bacteria: Chlamydia pneumoniae Legionella pneumophila Mycoplasma pneumoniae Viruses: Adenovirus Coronavirus (229E, OC43, HKU1, NL63) Human Metapneumovirus Human Rhinovirus/Enterovirus Influenza A Influenza B Parainfluenza Virus Respiratory Syncytial Virus Antimicrobial Resistance Genes: CTX-M IMP KPC NDM OXA-48-like VIM mecA/C and MREJ Yasmeen Lovett MD MICROBIOLOGY - GENERAL ORDERABLE S Final Result [facility] CLIA # [id number] [address] [place] [phone] * SPUTUM CULTURE WITH GRAM STAIN (07/23/2024 6:15 AM CDT) CULTURE No pathogens isolated. Normal respiratory kota present. 07/25/2024 7:06 AM CDT [facility] GRAM STAIN Smear contains </=10 squamous epithelial cells per low power field 07/25/2024 7:06 AM CDT [facility] GRAM STAIN <25 PMN WBC/LPF 7:06 AM CDT [facility] GRAM STAIN Mixed kota with no predominate morphology 07/25/2024 7:06 AM CDT [facility] Sputum COUGHED SPUTUM SPECIMEN / Unknown Collection / Unknown 07/23/2024 6:15 AM CDT 07/23/2024 6:15 AM CDT Result [facility] Yasmeen Lovett MD MICROBIOLOGY - GENERAL ORDERABLE S Final Result [facility] CLIA # [id number] [address] [place] [id number] * Critical Care (07/21/2024 1:16 PM CDT) Narrative Abel Singletary MD - 07/21/2024 1:16 PM CDT Abel Singletary MD 07/23/2024 10:09 AM Critical Care Performed by: Abel Gomez PA Authorized by: Abel Singletary MD Critical care provider statement: Critical care time (minutes): 45 Critical care was necessary to treat or prevent imminent or life-threatening deterioration of the following conditions: Respiratory failure and sepsis Critical care was time spent personally by me on the following activities: Blood draw for specimens, development of treatment plan with patient or surrogate, ordering and review of laboratory studies, ordering and review of radiographic studies, pulse oximetry, re-evaluation of patient's condition, review of old charts and ordering and performing treatments and interventions Abel Singletary MD PROCEDURE/MINOR SURGICAL ORDER JANAY Final Result * XR FOOT 3+ VW LEFT (07/20/2024 7:24 PM CDT) Anatomical Region Laterality Modality Ankle / Foot Computed Radiogr aphy 07/20/2024 7:24 PM CDT Impressions 07/20/2024 7:30 PM CDT IMPRESSION: Please see below. Exam: XR FOOT 3+ VW LEFT Date/Time of Exam: 07/20/2024 7:24 PM REASON FOR EXAM: Other - Please see comments, Comment: hammer toe correction 2nd toe.. DIAGNOSIS: Hammertoe of left foot. Findings: Arthrodesis changes at the second PIP joint are new since the prior examination. Remaining osseous structures are unchanged in configuration. There is some forefoot soft tissue swelling is likely postsurgical in nature. Calcaneal arthropathy is noted. IMPRESSION: Second PIP arthrodesis changes. Please see operative report for details. Narrative Procedure Note Meir Acosta MD - 07/20/2024 IMPRESSION: Please see below. Exam: XR FOOT 3+ VW LEFT Date/Time of Exam: 07/20/2024 7:24 PM REASON FOR EXAM: Other - Please see comments, Comment: hammer toe correction 2nd toe.. DIAGNOSIS: Hammertoe of left foot. Findings: Arthrodesis changes at the second PIP joint are new since the prior examination. Remaining osseous structures are unchanged in configuration. There is some forefoot soft tissue swelling is likely postsurgical in nature. Calcaneal arthropathy is noted. IMPRESSION: Second PIP arthrodesis changes. Please see operative report for details. Tereso Gil DPM DIAGNOSTIC IMAGING ORDERABLES Fi nal Result * Airway (07/20/2024 6:20 PM CDT) Narrative Nancy Stephen CRNA - 07/20/2024 6:20 PM CDT Nancy Stephen CRNA 07/20/2024 6:20 PM Airway Date/Time: 07/20/2024 6:20 PM Location: OR Plan: elective intubation Patient Identity Confirmed by: Verbally with patient Airway: not difficult Staffing Performed: Anesthesiologist (/) and [employer]/CAA Authorized by: Aki Garcia MD Performed by: Nancy Stephen CRNA Indications and Patient Condition: Indications for Airway Management: Anesthesia Sedation Level: sedation Final Airway Details: Final Airway Type: Mask Aik Garcia MD PROCEDURE/MINOR SURGICAL ORDER JANAY Edited Result - Final * XR FOOT 3+ VW RIGHT (07/15/2024 10:13 AM CDT) Anatomical Region Laterality Modality Ankle / Foot Computed Radiogr aphy 07/15/2024 10:1 3 AM CDT Impressions 07/15/2024 10:44 AM CDT IMPRESSION: Soft tissue swelling without evidence of an acute osseous abnormality. Narrative 07/15/2024 10:44 AM CDT Exam: XR FOOT 3+ VW RIGHT Date/Time of Exam: 07/15/2024 10:13 AM Reason For Exam: Swelling. Diagnosis: Cellulitis of right lower extremity. Comparison: None. Findings: There is soft tissue swelling. There is no apparent subcutaneous emphysema. There is no definite bony destructive changes to suggest the presence of active osteomyelitis. There is no evidence of an acute fracture, dislocation or significant arthrosis. 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 Procedure Note Meir Chawla, DO - 07/15/2024 Exam: XR FOOT 3+ VW RIGHT Date/Time of Exam: 07/15/2024 10:13 AM Reason For Exam: Swelling. Diagnosis: Cellulitis of right lower extremity. Comparison: None. Findings: There is soft tissue swelling. There is no apparent subcutaneous emphysema. There is no definite bony destructive changes to suggest the presence of active osteomyelitis. There is no evidence of an acute fracture, dislocation or significant arthrosis. 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 IMPRESSION: Soft tissue swelling without evidence of an acute osseous abnormality. Tereso Gil DP DIAGNOSTIC IMAGING ORDERABLES Fi nal Result * MRSA PCR RAPID SCREEN (07/14/2024 3:44 PM CDT) [facility] MRSA PCR RESULT MRSA not detected MRSA not detected 07/14/2024 5:12 PM CDT [facility] Surveillance ANTERIOR NARES SWAB / Unknown Collection / Unknown 07/14/2024 3:44 PM CDT 07/14/2024 3:53 PM CDT Narrative [facility] - 07/14/2024 5:12 PM CDT This assay is used to detect Methicillin-Resistant S. aureus (MRSA) colonization of the nares. PLEASE NOTE: This test has not been approved to monitor effectiveness of MRSA decolonization. Residual DNA may temporarily be present after successful decolonization. This test was performed using an FDA approved screening methodology. us Nba Nguyen MD MICROBIOLOGY - GENERAL O RDERABLES Final Result [facility] CLIA # [id number] [address] [facility] [place] [address] * XR TIBIA AND FIBULA 2 VW RIGHT (07/14/2024 9:53 AM CDT) Only the most recent of2 resultswithin the time period is included. Anatomical Region Laterality Modality Lower Extremity Computed Radiogr aphy 07/14/2024 9:54 AM CDT Impressions 07/14/2024 10:00 AM CDT IMPRESSION: No acute osseous abnormality is noted. Narrative 07/14/2024 10:00 AM CDT XR TIBIA AND FIBULA 2 VW RIGHT 07/14/2024 9:53 AM Reason For Exam: Injury. Diagnosis: See Reason for Exam. COMPARISON: None FINDINGS: No acute fracture, subluxation, dislocation, or destructive osseous lesion is seen. Joint spaces are preserved. Soft tissues are grossly unremarkable. Procedure Note Curly Thomas MD - 07/14/2024 XR TIBIA AND FIBULA 2 VW RIGHT 07/14/2024 9:53 AM Reason For Exam: Injury. Diagnosis: See Reason for Exam. COMPARISON: None FINDINGS: No acute fracture, subluxation, dislocation, or destructive osseous lesion is seen. Joint spaces are preserved. Soft tissues are grossly unremarkable. IMPRESSION: No acute osseous abnormality is noted. Abel Singletary MD DIAGNOSTIC IMAGING ORDERABLES Final Result * US VENOUS DOPPLER LEG RIGHT (07/14/2024 9:53 AM CDT) Only the most recent of2 resultswithin the time period is included. Anatomical Region Laterality Modality Lower Extremity Ultrasound 07/14/2024 9:47 AM CDT Narrative 07/15/2024 9:45 AM CDT [facility] Noninvasive Vascular Laboratory [address] [place] [address] Noninvasive Vascular Lab Venous Exam Unilateral Lower Extremity Duplex Patient: Le Diaz Study ID: US VENOUS DOPPLE Gender: F : 1965 Age: 59 Room: Height: 165.1cm Weight: 95.3kg BSA: 2.13m^2 Pt status: Emergency Study Date: 07/14/2024 Study Time: 09:47:06 AM BSA: 2.13m^2 Ordering: Abel Singletary Interpreting:Prince Luana Taper [employer] Layout: Kofi Leon Indications: Extremity Edema. Summary Impression: No evidence of deep or superficial venous thrombosis involving the right lower extremity and left common femoral vein. Study data: Right lower extremity venous ultrasound evaluation. Doppler flow study including spectral analysis, color and hollingsworth scale imaging. Height: 165.1cm. Height: 65in. Weight: 95.3kg. Weight: 210lb. BMI: 34.9kg/m^2. BSA: 2.13m^2. Location: Emergency department. Patient status: Emergency department. Study status: STAT. Procedure: A vascular evaluation was performed. Image quality was good. Venous flow and imaging: - Right common femoral Patent; Normal phasicity; spontaneous; compressible; normal augmentation - Right profunda femoral Patent; Normal phasicity; spontaneous; compressible; normal augmentation - Right femoral Patent; Normal phasicity; spontaneous; compressible; normal augmentation - Right popliteal Patent; Normal phasicity; spontaneous; compressible; normal augmentation - Right posterior tibial Patent; Compressible; normal augmentation - Right peroneal Patent; Compressible; normal augmentation - Right great saphenous Patent; Compressible - Right gastrocnemius Patent; Compressible - Left common femoral Patent; Normal phasicity; spontaneous; compressible; normal augmentation [facility] is accredited with the Intersocietal Commission for the Accreditation of Vascular Laboratories (ICAVL) Prepared and Electronically Authenticated Prince Luana Confirmed 07/15/2024 09:45 Procedure Note Prince Craft MD - 07/15/2024 [facility] Noninvasive Vascular Laboratory [address] [place] [id number] Noninvasive Vascular Lab Venous Exam Unilateral Lower Extremity Duplex Patient: Le Diaz Study ID: US VENOUS DOPPLE Gender: [place] : 1965 Age: 59 Room: Height: 165.1cm Weight: 95.3kg BSA: 2.13m^2 Pt status: Emergency Study Date: 07/14/2024 Study Time: 09:47:06 AM BSA: 2.13m^2 Ordering: Abel Singletary Interpreting:Prince Luana Taper [employer] Layout: Kofi Leon Indications: Extremity Edema. Summary Impression: No evidence of deep or superficial venous thrombosis involving the rightlower extremity and left common femoral vein. Study data: Right lower extremity venous ultrasound evaluation.Doppler flow study including spectral analysis, color and hollingsworth scale imaging. Height: 165.1cm. Height: 65in. Weight: 95.3kg. Weight: 210lb. BMI: 34.9kg/m^2. BSA: 2.13m^2. Location: Emergency department.Patient status: Emergency department. Study status: STAT. Procedure: A vascular evaluation was performed. Image quality was good. Venous flow and imaging: - Right common femoral Patent; Normal phasicity; spontaneous;compressible; normal augmentation - Right profunda femoral Patent; Normal phasicity; spontaneous;compressible; normal augmentation - Right femoral Patent; Normal phasicity; spontaneous; compressible;normal augmentation - Right popliteal Patent; Normal phasicity; spontaneous; compressible;normal augmentation - Right posterior tibial Patent; Compressible; normal augmentation - Right peroneal Patent; Compressible; normal augmentation - Right great saphenous Patent; Compressible - Right gastrocnemius Patent; Compressible - Left common femoral Patent; Normal phasicity; spontaneous;compressible; normal augmentation [facility] is accredited with theIntersocietal Commission for the Accreditation of Vascular Laboratories (ICAVL) Prepared and Electronically Authenticated Prince Lele Craft 07/15/2024 09:45 us Abel Singletary MD US ORDERABLES Final Result * (ABNORMAL) SEDIMENTATION RATE (07/14/2024 8:51 AM CDT) Only the most recent of2 resultswithin the time period is included. ESR (SEDIMENTATION RATE) 52(H) 0 - 20 mm/Hr 07/14/2024 11:09 AM CDT [facility] Blood Venipuncture / Unknown 07/14/2024 8:51 AM CDT 07/14/2024 8:56 AM CDT Abel Singletary MD HEMATOLOGY ORDERABLES Final Re sult Performing Organization Address [facility] Co de Phone Number [facility] Subtextual [facility] CLIA # [id number] [address] [place], [place] [id number] * (ABNORMAL) C-REACTIVE PROTEIN (07/14/2024 8:51 AM CDT) Only the most recent of2 resultswithin the time period is included. CRP 43.4(H) 0.0 - 5.0 mg/L 07/14/2024 11:11 AM CDT [facility] Blood Venipuncture / Unknown 07/14/2024 8:51 AM CDT 07/14/2024 8:56 AM CDT Abel Singletary MD CHEMISTRY ORDERABLES Final Res ult Performing Organization Address [facility] Co de Phone Number [facility] CLIA # [id number] [address] [phone] * ECHOCARDIOGRAM W/ CONTRAST AGENT (07/06/2024 9:15 AM CDT) EJECTION FRACTION 50 INTERFACE SYSTEM 07/06/2024 8:26 AM CDT Narrative INTERFACE SYSTEM - 07/06/2024 3:59 PM CDT [facility] Echocardiography Laboratory [address] [place] [address] Transthoracic Echocardiography Patient: Le Diaz Study ID: ECHO COMPLETE - Gender: F : 1965 Age: 58 Room: [facility] Study Date: 07/06/2024 Pt Status: Inpatient Study Time: 08:26:26 AM [facility] #: [id number] Ordering:Raúl Rod Taper Printed Circuit Layout: Brenda Almanza Indications and History: Check wall motion and EF. Summary and Conclusion: - Left ventricle: The cavity size is normal. Not well-visualized. Global systolic function is at the lower limits of normal. The estimated ejection fraction is 50-55%. For Epic reporting: the left ventricular ejection fraction is 50% by visual assessment. Images are inadequate for LV wall motion assessment. - Right ventricle: The cavity size is normal. Systolic function is normal. Systolic pressure is within the normal range. - Mitral valve: Mildly thickened and mildly calcified. Not well-visualized. There is mild regurgitation. - Tricuspid valve: There is mild regurgitation. - Technically limited study. Procedure information: Comparison is made to the study of 05/15/2024. Study status: Routine. Procedure: A transthoracic echocardiogram was performed. Image quality was adequate. The study was technically limited due to poor acoustic window availability, poor patient compliance, and body habitus. Scanning was performed from the parasternal, apical, subcostal, and suprasternal notch acoustic windows. Intravenous contrast (Definity) was administered. There were no complications. There were no contrast reactions. Note: Technical limitations in certain views decreases the sensitivity and specificity of the findings in this report. Consider advanced imaging if clinically appropriate. Study components: M-mode, 2D, complete spectral Doppler, and color Doppler. Height: 162.6cm. Height: 64in. Weight: 96.2kg. Weight: 212lb. BMI: 36.4kg/m^2. BSA: 2.13m^2. Blood pressure: 131/82 Study date: 07/06/2024. Study time: 08:26 AM. Location: Bedside. Cardiac Anatomy: LEFT VENTRICLE: The cavity size is normal. Not well-visualized. Global systolic function is at the lower limits of normal. The estimated ejection fraction is 50-55%. For Epic reporting: the left ventricular ejection fraction is 50% by visual assessment. Images are inadequate for LV wall motion assessment. Left ventricular diastolic function is indeterminate. RIGHT VENTRICLE: The cavity size is normal. Systolic function is normal. Systolic pressure is within the normal range. LEFT ATRIUM: The atrium is normal in size. RIGHT ATRIUM: The atrium is normal in size. ATRIAL SEPTUM: Not well-visualized. AORTIC VALVE: Not well-visualized. Mobility is not restricted. There is no stenosis. There is no significant regurgitation. MITRAL VALVE: Mildly thickened and mildly calcified. Not well-visualized. Mobility is not restricted. No evidence for prolapse. There is no evidence for stenosis. There is mild regurgitation. TRICUSPID VALVE: Mobility is unrestricted. There is no evidence for stenosis. There is mild regurgitation. PULMONIC VALVE: Not well visualized. The valve appears to be grossly normal. There is no evidence for stenosis. There is trace regurgitation. The peak systolic gradient is 3mm Hg. PERICARDIUM: There is no pericardial effusion. AORTA: Aortic root: The root is not dilated. INTRACARDIAC MASS THROMBUS: Cannot rule out intracavitary masses or thrombi due to technical limitations of certain views. Consider advanced imaging if clinically appropriate. Measurements Left ventricle Value LVOT continued Value ESD, LAX 4.2 cm VTI, S 21.4 cm ESD/bsa, LAX 2.0 cm/m^2 Peak grad, S 5 mm Hg FS, LAX 27 % FS, LAX chord 27 % Right ventricle Value ESD major ax, A4C 7.4 cm JUANY, LAX 3.4 cm ESD/bsa major ax, A4C 3.5 cm/m^2 JUANY minor ax, A4C base 2.9 cm JUANY minor ax, A4C 7.4 cm JUANY minor ax, A4C mid 2.3 cm JUANY/bsa minor ax, A4C 3.5 cm/m^2 JUANY 3.4 cm CORAL, A4C 40.9 cm^2 TAPSE, 2D 2.0 cm ARLENE, A4C 24.4 cm^2 TAPSE, MM 2.0 cm FAC, A4C 40 % S' lateral 12.7 cm/sec JUANY major ax, A2C 9.0 cm JUANY/bsa major ax, A2C 4.2 cm/m^2 Left atrium Value CORAL, A2C 38.1 cm^2 AP dim, ES 3.6 cm ARLENE, A2C 24.1 cm^2 AP dim index, ES 1.7 cm/m^2 FAC, A2C 37 % Area ES, A4C 18 cm^2 IVS, ED 1.0 cm SI dim, A2C 5.7 cm PW, ED 1.1 cm Vol, ES, 1-p A4C 42 ml IVS/PW, ED 0.93 Vol/bsa, ES, 1-p A4C 20 ml/m^2 EDV 159 ml Vol, ES, 1-p A2C 51 ml ESV 77 ml Vol/bsa, ES, 1-p A2C 24 ml/m^2 EF 51 % Vol, ES, 2-p 48 ml EDV/bsa 75 ml/m^2 Vol/bsa, ES, 2-p 23 ml/m^2 ESV/bsa 36 ml/m^2 EDV, 1-p A2C 140 ml Right atrium Value ESV, 1-p A2C 71 ml Area, ES, A4C 13 cm^2 EF, 1-p A2C 51 % SV, 1-p A2C 82 ml Aortic valve Value EDV/bsa, 1-p A2C 66 ml/m^2 Mean v, S 77.4 cm/sec ESV/bsa, 1-p A2C 33 ml/m^2 VTI, S 21.4 cm SV/bsa, 1-p A2C 38.4 ml/m^2 Accel time 106 ms EDV, 1-p A4C 152 ml Mean grad, S 3 mm Hg ESV, 1-p A4C 73 ml LVOT/AV, VTI ratio 1 EF, 1-p A4C 52 % SV, 1-p A4C 111 ml Mitral valve Value EDV/bsa, 1-p A4C 71 ml/m^2 Peak E 57.9 cm/sec ESV/bsa, 1-p A4C 34 ml/m^2 Peak A 63.2 cm/sec SV/bsa, 1-p A4C 52 ml/m^2 Decel slope 232 cm/s^2 EDV, 2-p 151 ml Decel time 250 ms ESV, 2-p 72 ml PHT 73 ms EF, 2-p 53 % Peak E/A ratio 0.9 SV, 2-p 80 ml MVA, PHT 3.01 cm^2 EDV/bsa, 2-p 71 ml/m^2 MVA/bsa, PHT 1.41 cm^2/m^2 ESV/bsa, 2-p 34 ml/m^2 SV/bsa, 2-p 39.3 ml/m^2 Pulmonic valve Value EDV, MM Teich. 159 ml Peak v, S 88.4 cm/sec EF, MM Teich. 51 % Peak grad, S 3 mm Hg EDV/bsa, MM Teich. 75 ml/m^2 EF, MM on 2D Teich. 51 % Aortic root Value E', lat abner, TDI 10.3 cm/sec S-T junct diam, ED 2.8 cm E/e', lat abner, TDI 11 S-T junct diam/bsa, ED 1.3 cm/m^2 E', med abner, TDI 5.4 cm/sec E/e', med abner, TDI 11 Ascending aorta Value E', avg, TDI 7.9 cm/sec AAo AP diam, S 3.0 cm E/e', avg, TDI 7 AAo AP diam/bsa, S 1.4 cm/m^2 LVOT Value Descending aorta Value Peak reynaldo, S 108 cm/sec Saida diam 2.3 cm Legend: (L) and (H) robbie values outside specified reference range. [facility] are accredited with the Intersocietal Accreditation Commission - Echocardiography. Prepared and Electronically Authenticated Raúl Rod Confirmed 07/06/2024 15:59 Procedure Note Raúl Rod MD - 07/06/2024 [facility] Echocardiography Laboratory [address] [place] [id number] Transthoracic Echocardiography Patient: Le iDaz Study ID: ECHOCOMPLETE - Gender: F : 1965 Age: 58 Room: [facility] Study Date: 07/06/2024 Pt Status: Inpatient Study Time: 08:26:26 AM CSN #: [id number] Ordering:Raúl Rod [employer] Layout: Brenda Almanza Indications and History: Check wall motion and EF. Summary and Conclusion: - Left ventricle: The cavity size is normal. Not well-visualized. Global systolic function is at the lower limits of normal. The estimatedejection fraction is 50-55%. For Epic reporting: the left ventricular ejection fraction is 50% by visual assessment. Images are inadequate for LVwall motion assessment. - Right ventricle: The cavity size is normal. Systolic function isnormal. Systolic pressure is within the normal range. - Mitral valve: Mildly thickened and mildly calcified. Notwell-visualized. There is mild regurgitation. - Tricuspid valve: There is mild regurgitation. - Technically limited study. Procedure information: Comparison is made to the study of 05/15/2024.Study status: Routine. Procedure: A transthoracic echocardiogram wasperformed. Image quality was adequate. The study was technically limited due topoor acoustic window availability, poor patient compliance, and body habitus. Scanning was performed from the parasternal, apical, subcostal, and suprasternal notch acoustic windows. Intravenous contrast (Definity) was administered. There were no complications. There were no contrastreactions. Note: Technical limitations in certain views decreases the sensitivityand specificity of the findings in this report. Consider advanced imaging if clinically appropriate. Study components: M-mode, 2D, complete spectral Doppler, and color Doppler. Height: 162.6cm. Height: 64in. Weight: 96.2kg. Weight: 212lb. BMI: 36.4kg/m^2. BSA: 2.13m^2.Blood pressure: 131/82 Study date: 07/06/2024. Study time: 08:26 AM. Location: Bedside. Cardiac Anatomy: LEFT VENTRICLE: The cavity size is normal. Not well-visualized. Global systolic function is at the lower limits of normal. The estimatedejection fraction is 50-55%. For Epic reporting: the left ventricular ejectionfraction is 50% by visual assessment. Images are inadequate for LV wall motion assessment. Left ventricular diastolic function is indeterminate. RIGHT VENTRICLE: The cavity size is normal. Systolic function isnormal. Systolic pressure is within the normal range. LEFT ATRIUM: The atrium is normal in size. RIGHT ATRIUM: The atrium is normal in size. ATRIAL SEPTUM: Not well-visualized. AORTIC VALVE: Not well-visualized. Mobility is not restricted. There isno stenosis. There is no significant regurgitation. MITRAL VALVE: Mildly thickened and mildly calcified. Notwell-visualized. Mobility is not restricted. No evidence for prolapse. There is noevidence for stenosis. There is mild regurgitation. TRICUSPID VALVE: Mobility is unrestricted. There is no evidence for stenosis. There is mild regurgitation. PULMONIC VALVE: Not well visualized. The valve appears to be grosslynormal. There is no evidence for stenosis. There is trace regurgitation. Thepeak systolic gradient is 3mm Hg. PERICARDIUM: There is no pericardial effusion. AORTA: Aortic root: The root is not dilated. INTRACARDIAC MASS THROMBUS: Cannot rule out intracavitary masses orthrombi due to technical limitations of certain views. Consider advanced imagingif clinically appropriate. Measurements Left ventricle Value LVOT continued Value ESD, LAX 4.2 cm VTI, S 21.4 cm ESD/bsa, LAX 2.0 cm/m^2 Peak grad, S 5 mmHg FS, LAX 27 % FS, LAX chord 27 % Right ventricle Value ESD major ax, A4C 7.4 cm JUANY, LAX 3.4 cm ESD/bsa major ax, A4C 3.5 cm/m^2 JUANY minor ax, A4C base 2.9 cm JUANY minor ax, A4C 7.4 cm JUANY minor ax, A4C mid 2.3 cm JUAYN/bsa minor ax, A4C 3.5 cm/m^2 UJANY 3.4 cm CORAL, A4C 40.9 cm^2 TAPSE, 2D 2.0 cm ARLENE, A4C 24.4 cm^2 TAPSE, MM 2.0 cm FAC, A4C 40 % S' lateral 12.7cm/sec JUANY major ax, A2C 9.0 cm JUANY/bsa major ax, A2C 4.2 cm/m^2 Left atrium Value CORAL, A2C 38.1 cm^2 AP dim, ES 3.6 cm ARLENE, A2C 24.1 cm^2 AP dim index, ES 1.7cm/m^2 FAC, A2C 37 % Area ES, A4C 18 cm^2 IVS, ED 1.0 cm SI dim, A2C 5.7 cm PW, ED 1.1 cm Vol, ES, 1-p A4C 42 ml IVS/PW, ED 0.93 Vol/bsa, ES, 1-p A4C 20ml/m^2 EDV 159 ml Vol, ES, 1-p A2C 51 ml ESV 77 ml Vol/bsa, ES, 1-p A2C 24ml/m^2 EF 51 % Vol, ES, 2-p 48 ml EDV/bsa 75 ml/m^2 Vol/bsa, ES, 2-p 23ml/m^2 ESV/bsa 36 ml/m^2 EDV, 1-p A2C 140 ml Right atrium Value ESV, 1-p A2C 71 ml Area, ES, A4C 13 cm^2 EF, 1-p A2C 51 % SV, 1-p A2C 82 ml Aortic valve Value EDV/bsa, 1-p A2C 66 ml/m^2 Mean v, S 77.4cm/sec ESV/bsa, 1-p A2C 33 ml/m^2 VTI, S 21.4 cm SV/bsa, 1-p A2C 38.4 ml/m^2 Accel time 106 ms EDV, 1-p A4C 152 ml Mean grad, S 3 mmHg ESV, 1-p A4C 73 ml LVOT/AV, VTI ratio 1 EF, 1-p A4C 52 % SV, 1-p A4C 111 ml Mitral valve Value EDV/bsa, 1-p A4C 71 ml/m^2 Peak E 57.9cm/sec ESV/bsa, 1-p A4C 34 ml/m^2 Peak A 63.2cm/sec SV/bsa, 1-p A4C 52 ml/m^2 Decel slope 232cm/s^2 EDV, 2-p 151 ml Decel time 250 ms ESV, 2-p 72 ml PHT 73 ms EF, 2-p 53 % Peak E/A ratio 0.9 SV, 2-p 80 ml MVA, PHT 3.01 cm^2 EDV/bsa, 2-p 71 ml/m^2 MVA/bsa, PHT 1.41cm^2/m^2 ESV/bsa, 2-p 34 ml/m^2 SV/bsa, 2-p 39.3 ml/m^2 Pulmonic valve Value EDV, MM Teich. 159 ml Peak v, S 88.4cm/sec EF, MM Teich. 51 % Peak grad, S 3 mmHg EDV/bsa, MM Teich. 75 ml/m^2 EF, MM on 2D Teich. 51 % Aortic root Value E', lat abner, TDI 10.3 cm/sec S-T junct diam, ED 2.8 cm E/e', lat abner, TDI 11 S-T junct diam/bsa, ED 1.3cm/m^2 E', med abner, TDI 5.4 cm/sec E/e', med abner, TDI 11 Ascending aorta Value E', avg, TDI 7.9 cm/sec AAo AP diam, S 3.0 cm E/e', avg, TDI 7 AAo AP diam/bsa, S 1.4cm/m^2 LVOT Value Descending aorta Value Peak reynaldo, S 108 cm/sec Saida diam 2.3 cm Legend: (L) and (H) robbie values outside specified reference range. [facility] are accredited with theB[facility] Estrella Medical Centersocietal Accreditation Commission - Echocardiography. Prepared and Electronically Authenticated Raúl Rod Confirmed 07/06/2024 15:59 us Raúl Rod MD US ORDERABLES Final Result INTERFACE SYSTEM Refer to clinic/hospital department * XR KNEE 1 OR 2 VW RIGHT (07/04/2024 2:18 PM CDT) Anatomical Region Laterality Modality Lower Extremity Computed Radiogr aphy 07/04/2024 2:18 PM CDT Impressions 07/04/2024 2:48 PM CDT Impression: No acute fracture. Narrative 07/04/2024 2:48 PM CDT Exam: XR KNEE 1 OR 2 VW RIGHT Date/Time of Exam: 07/04/2024 2:18 PM Reason For Exam: Swelling Diagnosis: Chest pain, unspecified type; COPD with exacerbation (CMS/HCC); Pneumonia of left lower lobe due to infectious organism AP and lateral views of the right knee are submitted. No acute fracture, dislocation or other bony abnormality is seen. Procedure Note Scooby Mcgowan MD - 07/04/2024 Exam: XR KNEE 1 OR 2 VW RIGHT Date/Time of Exam: 07/04/2024 2:18 PM Reason For Exam: Swelling Diagnosis: Chest pain, unspecified type; COPD with exacerbation (CMS/HCC); Pneumonia of left lower lobe due to infectious organism AP and lateral views of the right knee are submitted. No acute fracture, dislocation or other bony abnormality is seen. Impression: No acute fracture. us Matilde Nix MD DIAGNOSTIC IMAGING ORD ERABLES Final Result * US VENOUS DOPPLER LEG BILATERAL (07/01/2024 10:33 AM CDT) Anatomical Region Laterality Modality Lower Extremity Ultrasound 07/01/2024 7:03 AM CDT Narrative 07/04/2024 9:25 AM CDT [facility] Noninvasive Vascular Laboratory [address] [place] [id number] Noninvasive Vascular Lab Venous Exam Unilateral Lower Extremity Duplex Patient: Le Diaz Study ID: US VENOUS DOPPLE Gender: F : 1965 Age: 58 Room: [facility] Height: 162.6cm Weight: 95.4kg BSA: 2.12m^2 Pt status: Inpatient Study Date: 07/01/2024 Study Time: 07:03:35 AM BSA: 2.12m^2 Ordering: Landon Blankenship Interpreting:Danny Lancaster [employer] Layout: Yoly Fair RVT Indications: R/o dvt. Summary Impression: 1. No evidence of deep or superficial venous thrombosis involving the right lower extremity. 2. PT declined any images of her Left leg being taken. Study data: Right lower extremity venous ultrasound evaluation. Doppler flow study including spectral analysis, color and hollingsworth scale imaging. Height: 162.6cm. Height: 64in. Weight: 95.4kg. Weight: 210.3lb. BMI: 36.1kg/m^2. BSA: 2.12m^2. Location: Bedside. Patient status: Inpatient. Study status: Routine. Procedure: A vascular evaluation was performed. Image quality was fair. Venous flow and imaging: - Right common femoral Patent; Normal phasicity; spontaneous; compressible; normal augmentation - Right profunda femoral Patent; Normal phasicity; spontaneous; compressible; normal augmentation - Right femoral Patent; Normal phasicity; spontaneous; compressible; normal augmentation - Right popliteal Patent; Normal phasicity; spontaneous; compressible; normal augmentation - Right small saphenous Patent; Normal phasicity; spontaneous; compressible; normal augmentation - Right posterior tibial Patent; Compressible; normal augmentation - Right peroneal Patent; Compressible; normal augmentation - Right great saphenous Patent; Normal phasicity; spontaneous; compressible; normal augmentation [facility] is accredited with the Intersocietal Commission for the Accreditation of Vascular Laboratories (ICAVL) Prepared and Electronically Authenticated Danny Lancaster Confirmed 07/04/2024 09:25 Procedure Note Danny Lancaster MD - 07/04/2024 [facility] Noninvasive Vascular Laboratory [address] [place] [id number] Noninvasive Vascular Lab Venous Exam Unilateral Lower Extremity Duplex Patient: Le Diaz Study ID: US VENOUS DOPPLE Gender: F : 1965 Age: 58 Room: [facility] Height: 162.6cm Weight: 95.4kg BSA: 2.12m^2 Pt status: Inpatient Study Date: 07/01/2024 Study Time: 07:03:35 AM BSA: 2.12m^2 Ordering: Landon Blankenship Interpreting:Danny Lancaster [employer] Layout: Yoly Fair RVT Indications: R/o dvt. Summary Impression: 1. No evidence of deep or superficial venous thrombosis involving theright lower extremity. 2. PT declined any images of her Left leg being taken. Study data: Right lower extremity venous ultrasound evaluation.Doppler flow study including spectral analysis, color and hollingsworth scale imaging. Height: 162.6cm. Height: 64in. Weight: 95.4kg. Weight: 210.3lb.BMI: 36.1kg/m^2. BSA: 2.12m^2. Location: Bedside. Patient status: Inpatient. Study status: Routine. Procedure: A vascular evaluationwas performed. Image quality was fair. Venous flow and imaging: - Right common femoral Patent; Normal phasicity; spontaneous;compressible; normal augmentation - Right profunda femoral Patent; Normal phasicity; spontaneous;compressible; normal augmentation - Right femoral Patent; Normal phasicity; spontaneous; compressible;normal augmentation - Right popliteal Patent; Normal phasicity; spontaneous; compressible;normal augmentation - Right small saphenous Patent; Normal phasicity; spontaneous;compressible; normal augmentation - Right posterior tibial Patent; Compressible; normal augmentation - Right peroneal Patent; Compressible; normal augmentation - Right great saphenous Patent; Normal phasicity; spontaneous;compressible; normal augmentation [facility] is accredited with theIntersocietal Commission for the Accreditation of Vascular Laboratories (ICAVL) Prepared and Electronically Authenticated Danny Lancaster Confirmed 07/04/2024 09:25 us Landon Blankenship MD US ORDERABLES Jana mark Result * CTA CHEST ABD PELVIS W AND/OR WO CONTRAST (06/30/2024 9:52 PM CDT) Anatomical Region Laterality Modality Chest, Abdomen, Pelvis Computed Tomography 06/30/2024 9:36 PM CDT Impressions 07/01/2024 9:30 AM CDT IMPRESSION: 1. Acute versus recent fracture involving the superior aspect of the L1 vertebral body (not present on prior CT abdomen/pelvis dated 05/14/2024). 2. Normal caliber thoracic / abdominal aorta without dissection or aneurysm. 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 3. No evidence of acute pulmonary embolism. 4. Persistent left lower lobe rounded atelectasis. 5. No pleural fluid collection. 6. Areas of geographic fatty infiltration within the liver. 7. Small air collection within anterior bladder lumen, possibly following recent catheterization. Infection / cystitis is also a consideration. Narrative 07/01/2024 9:30 AM CDT Exam: CTA CHEST ABD PELVIS W AND/OR WO CONTRAST Date/Time of Exam: 06/30/2024 9:52 PM Reason For Exam: Acute aortic syndrome (AAS) suspected. Diagnosis: See Reason for Exam. Technique: CTA of the chest, abdomen, and pelvis was performed prior to and following the administration of intravenous contrast. Post-processing was performed, including sagittal and coronal reformations and 3-D reconstruction. Contrast: Isovue-300 Comparison: 05/14/2024. Findings: I agree with the preliminary report. The preliminary report is attached below with possible minor/noncritical modifications. ++++++++++++++++++++ IMPRESSION VASCULATURE: Pulmonary arteries: No evidence of acute pulmonary embolism. Aorta: Atherosclerotic calcifications are present without aneurysm or dissection. Celiac trunk and mesenteric arteries: No occlusion or significant stenosis. Ulcerated plaque noted in the proximal SMA. Renal arteries: No occlusion or significant stenosis. Right iliac arteries: No occlusion or significant stenosis. Left iliac arteries: No occlusion or significant stenosis. Femoral arteries: There is a small 4 mm outpouching from the right common femoral artery likely reflective of a small postprocedural pseudoaneurysm. CHEST: Lungs: Dependent atelectasis. Focal opacity in the posterior left lower lobe is similar to the prior study and likely reflective of rounded atelectasis. Mediastinum: Reactive size lymph nodes are unchanged from the prior study. Pleural spaces: No pleural fluid collection. No pneumothorax. Heart: No right ventricular strain. No pericardial effusion. Cardiomegaly. Coronary artery calcification. ABDOMEN AND PELVIS: Liver: Areas of geographic fatty infiltration within the liver. Gallbladder and biliary ducts: Unremarkable. No calcified stones. No ductal dilation. Pancreas: Unremarkable. No mass. No ductal dilation. Spleen: Prior splenectomy. Adrenal glands: Unremarkable. No mass. Kidneys and ureters: Unremarkable. No solid mass. No hydronephrosis. Stomach and bowel: Unremarkable. No obstruction. No mucosal thickening. Appendix: No evidence of appendicitis. Intraperitoneal space: Unremarkable. No free air. No significant fluid collection. Urinary bladder: Small air collection within anterior bladder lumen, possibly following recent catheterization. Infection / cystitis is also a consideration. Reproductive: Unremarkable as visualized. Lymph nodes: No enlarged lymph nodes. Bones/joints: Acute versus recent fracture involving the superior aspect of the L1 vertebral body (not present on prior CT abdomen/pelvis dated 05/14/2024). Prior cervical spine surgery. Soft tissues: Prior right mastectomy. Upper abdominal ventral hernia containing fat and a portion of the anterior left lobe of the liver. Procedure Note Tarik Aranda MD - 07/01/2024 Exam: CTA CHEST ABD PELVIS W AND/OR WO CONTRAST Date/Time of Exam: 06/30/2024 9:52 PM Reason For Exam: Acute aortic syndrome (AAS) suspected. Diagnosis: See Reason for Exam. Technique: CTA of the chest, abdomen, and pelvis was performed prior to and following the administration of intravenous contrast. Post-processing was performed, including sagittal and coronal reformations and 3-D reconstruction. Contrast: Isovue-300 Comparison: 05/14/2024. Findings: I agree with the preliminary report. The preliminary report is attached below with possible minor/noncritical modifications. ++++++++++++++++++++ IMPRESSION VASCULATURE: Pulmonary arteries: No evidence of acute pulmonary embolism. Aorta: Atherosclerotic calcifications are present without aneurysm or dissection. Celiac trunk and mesenteric arteries: No occlusion or significant stenosis. Ulcerated plaque noted in the proximal SMA. Renal arteries: No occlusion or significant stenosis. Right iliac arteries: No occlusion or significant stenosis. Left iliac arteries: No occlusion or significant stenosis. Femoral arteries: There is a small 4 mm outpouching from the right common femoral artery likely reflective of a small postprocedural pseudoaneurysm. CHEST: Lungs: Dependent atelectasis. Focal opacity in the posterior left lower lobe is similar to the prior study and likely reflective of rounded atelectasis. Mediastinum: Reactive size lymph nodes are unchanged from the prior study. Pleural spaces: No pleural fluid collection. No pneumothorax. Heart: No right ventricular strain. No pericardial effusion. Cardiomegaly. Coronary artery calcification. ABDOMEN AND PELVIS: Liver: Areas of geographic fatty infiltration within the liver. Gallbladder and biliary ducts: Unremarkable. No calcified stones. No ductal dilation. Pancreas: Unremarkable. No mass. No ductal dilation. Spleen: Prior splenectomy. Adrenal glands: Unremarkable. No mass. Kidneys and ureters: Unremarkable. No solid mass. No hydronephrosis. Stomach and bowel: Unremarkable. No obstruction. No mucosal thickening. Appendix: No evidence of appendicitis. Intraperitoneal space: Unremarkable. No free air. No significant fluid collection. Urinary bladder: Small air collection within anterior bladder lumen, possibly following recent catheterization. Infection / cystitis is also a consideration. Reproductive: Unremarkable as visualized. Lymph nodes: No enlarged lymph nodes. Bones/joints: Acute versus recent fracture involving the superior aspect of the L1 vertebral body (not present on prior CT abdomen/pelvis dated 05/14/2024). Prior cervical spine surgery. Soft tissues: Prior right mastectomy. Upper abdominal ventral hernia containing fat and a portion of the anterior left lobe of the liver. IMPRESSION: 1. Acute versus recent fracture involving the superior aspect of the L1 vertebral body (not present on prior CT abdomen/pelvis dated 05/14/2024). 2. Normal caliber thoracic / abdominal aorta without dissection or aneurysm. 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 3. No evidence of acute pulmonary embolism. 4. Persistent left lower lobe rounded atelectasis. 5. No pleural fluid collection. 6. Areas of geographic fatty infiltration within the liver. 7. Small air collection within anterior bladder lumen, possibly following recent catheterization. Infection / cystitis is also a consideration. Landon Blankenship MD CT ORDERABLES Jana l Result * CT HEAD WO CONTRAST (06/30/2024 9:52 PM CDT) Anatomical Region Laterality Modality Head Computed Tomogra phy 06/30/2024 9:32 PM CDT Impressions 07/01/2024 7:18 AM CDT IMPRESSION: No acute intracranial abnormality. Senescent changes. Narrative 07/01/2024 7:18 AM CDT Exam: CT HEAD WO CONTRAST Date/Time of Exam: 06/30/2024 9:52 PM Reason For Exam: Neuro deficit, acute, stroke suspected. Diagnosis: See Reason for Exam. Technique: CT of the head was performed without the administration of intravenous contrast. Comparison: None. Findings: I agree with the preliminary report. The preliminary report is attached below with possible minor/noncritical modifications. ++++++++++++++++++++ IMPRESSION FINDINGS: Brain: Age-related brain parenchymal atrophy. Areas of hypoattenuation in the periventricular and subcortical deep white matter likely on the basis of chronic microvascular ischemic changes. No acute intra cranial hemorrhage. No mass effect or midline shift. No definitive CT evidence of acute territorial infarction. 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 Cerebral ventricles: No ventriculomegaly. Paranasal sinuses: Visualized sinuses are unremarkable. No fluid levels. Mastoid air cells: Visualized mastoid air cells are well aerated. Bones: Intact calvarium. Soft tissues: Unremarkable. Procedure Note Tarik Aranda MD - 07/01/2024 Exam: CT HEAD WO CONTRAST Date/Time of Exam: 06/30/2024 9:52 PM Reason For Exam: Neuro deficit, acute, stroke suspected. Diagnosis: See Reason for Exam. Technique: CT of the head was performed without the administration of intravenous contrast. Comparison: None. Findings: I agree with the preliminary report. The preliminary report is attached below with possible minor/noncritical modifications. ++++++++++++++++++++ IMPRESSION FINDINGS: Brain: Age-related brain parenchymal atrophy. Areas of hypoattenuation in the periventricular and subcortical deep white matter likely on the basis of chronic microvascular ischemic changes. No acute intra cranial hemorrhage. No mass effect or midline shift. No definitive CT evidence of acute territorial infarction. 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 Cerebral ventricles: No ventriculomegaly. Paranasal sinuses: Visualized sinuses are unremarkable. No fluid levels. Mastoid air cells: Visualized mastoid air cells are well aerated. Bones: Intact calvarium. Soft tissues: Unremarkable. IMPRESSION: No acute intracranial abnormality. Senescent changes. Landon Blankenship MD CT ORDERABLES Jana l Result * ETHANOL LEVEL (06/30/2024 7:59 PM CDT) ETHANOL <10.10 <10.10 mg/dL 06/30/2024 9:[address] [facility] ETHANOL % <0.01 <=0.01 %w/v 06/30/2024 9:10 PM CDT [facility] Blood Venipuncture / Unknown 06/30/2024 7:59 PM CDT 06/30/2024 8:12 PM CDT us Aki Booth DO CHEMISTRY ORDERABLES Fi nal Result [facility] CLIA # [id number] [id number] 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 SPECIALIST failure or compromise (Irregular heart rate, pneumonia, subtherapeutic INR, multiple complex comorbid medical conditions multiple readjustments of medications and treatment, right arm and right leg numbness and subtherapeutic INR) Critical care was time spent personally by me on the following activities: Review of old charts, re-evaluation of patient's condition, pulse oximetry, examination of patient, discussions with consultants, evaluation of patient's response to treatment, obtaining history from patient or surrogate, ordering and performing treatments and interventions, ordering and review of laboratory studies and ordering and review of radiographic studies I assumed direction of critical care for this patient from another provider in my specialty: no Care discussed with: admitting provider us Aki Booth DO PROCEDURE/MINOR SURGICA L ORDERABLES Final Result * (ABNORMAL) LIPID PANEL (02/19/2024 5:29 AM PLANT CONTROL AIDE) CHOLESTEROL 188 <200 mg/dL 02/19/2024 10:25 AM PLANT CONTROL AIDE [facility] TRIGLYCERIDE 104 <150 mg/dL 02/19/2024 10:25 AM PLANT CONTROL AIDE [facility] HDL 36(L) 40 - 59 mg/dL 02/19/2024 10:25 AM [facility] LDL CALCULATED 131(H) <100 mg/dL 02/19/2024 10:25 AM [facility] NON-HDL CHOLESTEROL 152(H) <130 mg/dL 02/19/2024 10:25 AM [facility] Blood Venipuncture / Unknown 02/19/2024 5:29 AM PLANT CONTROL AIDE 02/19/2024 5:[address] [facility] Narrative [facility] - 02/19/2024 10:[address] [facility] TOTAL CHOLESTEROL mg/dL Desirable <200 Borderline high 200-239 High >=240 TRIGLYCERIDES mg/dL Normal <150 Borderline high 150-199 High 200-499 Very high >=500 HDL CHOLESTEROL mg/dL Low <40 Normal 40-59 Desirable >=60 NON HDL CHOLESTEROL mg/dL Optimal <130 Near Optimal 130-159 Borderline High 160-189 Very High >=190 CALCULATED LDL mg/dL LDL <70, OPTIMAL if have Atherosclerotic cardiovascular disease (ASCVD) or intermediate or higher (>7.5%) 10 year risk of ASCVD including most adults with diabetes. LDL <100, Optimal in adult patients with low (<7.5%) 10 year ASCVD risk LDL 100-160, Suboptimal LDL >160, High LDL >190, Very high ATPIII Guidelines Reference Ranges for Lipid Panels (NCEP/AMA) . Mariya Artis MD CHEMISTRY ORDERABLES Final R [facility] [id number] [address] [place] [id number] * MICROALBUMIN/CREATININE RATIO, RANDOM UR (02/26/2023 3:01 PM PLANT CONTROL AIDE) Creatinine, Urine 199 20 - 275 mg/dL [facility] MICROALBUMIN, URINE 1.9 See Note: mg/dL [facility] Comment: Reference Range: Reference Range Not established MICROALBUMIN/CREAT RATIO, UR 10 <30 mcg/mg creat [facility] Comment: The ADA defines abnormalities in albumin excretion as follows: Albuminuria Category Result (mcg/mg creatinine) Normal to Mildly increased <30 Moderately increased 30-299 Severely increased > OR = 300 The ADA recommends that at least two of three specimens collected within a 3-6 month period be abnormal before considering a patient to be within a diagnostic category. FASTING:UNKNOWN FASTING: UNKNOWN Test Performed at: [facility] [address] [place] [address] Emily Dumont MD Urine URINE SPECIMEN OBTAINED BY CLEAN CATCH PROCEDURE / Unknown 02/26/2023 3:01 PM PLANT CONTROL AIDE 02/26/2023 3:02 PM PLANT CONTROL AIDE Ryann Burk MD URINE ORDERABLES Final Result [facility] [address] [phone] [facility] [address] [place] [address] * CERV/VAG CYTO SCREEN PAP W/HPV (01/06/2023 12:00 AM CDT) CLINICAL INFORMATION [facility] [place] Comment:None given LAST MENSTRUAL PERIOD [facility] [place] Comment:NONE GIVEN PREV PAP: [facility] [place] Comment:NONE GIVEN PREV BX: [facility] [place] Comment:NONE GIVEN SOURCE [facility] [place] Comment:ENDOCERVIX ADEQUACY: [facility] [place] Comment: Satisfactory for evaluation. Endocervical/transformation zone component present. Age and/or menstrual status not provided PAP INTERP [facility] [place] Comment: Cytology Results: Negative for intraepithelial lesion or malignancy. COMMENT (PAP TEST) [facility] [place] Comment: This Pap test has been evaluated with computer assisted technology. WARE CARRIER: [facility] Comment: DELANO SUH(ASCP) CT screening location: [place] [address] [place] [address] EXPLANATORY NOTE [facility] Comment: EXPLANATORY NOTE: The Pap is a screening test for cervical cancer. It is not a diagnostic test and is subject to false negative and false positive results. It is most reliable when a satisfactory sample, regularly obtained, is submitted with relevant clinical findings and history, and when the Pap result is evaluated along with historic and current clinical information. HPV E6/E7 Not Detected Not Detected [facility] Comment: Methodology: Brokerage Office Manager-Mediated Amplification This assay detects E6/E7 viral messenger RNA (mRNA) from 14 high-risk HPV types (16,18,31,33,35,39,45,51,52,56,58,59,66,68). Cervical sources are required for HPV testing. If a vaginal source from a patient who has had a total hysterectomy with removal of cervix was submitted, please contact the testing laboratory for alternative testing options. For additional information, please refer to http://education.Spotster/faq/RLF154m8 (This link if provided for information/ educational purposes only.) Test Performed at: [facility] [address] [place] [address] Emily Dumont MD Genital SWAB OF ENDOCERVIX / Unknown 01/06/2023 01/08/2023 10:07 AM CDT us Ryann Burk MD PATHOLOGY/CYTOLOGY ORDERABLES [facility] Result [facility] [address] [phone] [facility] [address] [place] [address] * MAMMO DIAGNOSTIC UNI RIGHT W OR WO CAD (01/24/2011 10:03 AM CDT) Anatomical Region Laterality Modality Breast Right Other Narrative 01/24/2011 1:34 PM CDT ULTRASOUND-GUIDED VACUUM ASSISTED PERCUTANEOUS BIOPSY RIGHT BREAST WITH CLIP PLACEMENT AND DIGITAL UNILATERAL DIAGNOSTIC MAMMOGRAM RIGHT BREAST: The patient initially presented for possible aspiration of a right-sided nodule. Subsequently biopsy was undertaken. The procedure was explained to the patient prior to obtaining informed consent. Initially we took the patient to the ultrasound suite and attempted a cyst aspiration. The yielded some blackish fluid from the cystic spaces though that did not completely collapse the mass. Solid components remain and therefore vacuum assisted percutaneous biopsy with the 12 gauge Celero device was utilized. The skin was cleansed in a usual fashion. Superficial and deep anesthesia was undertaken. A lateral to medial transverse approach was utilized. Excellent correlation of the nodule being thoroughly biopsied. There was minimal residual tissue remaining at the end. A small clip was placed to robbie the site. Postprocedure radiographs show the clip to be in good position compared to prebiopsy images. There previously was a definable nodule. It is difficult to define a definable nodule at this time. The patient tolerated the procedure well and there are no complications. SUMMARY: Successful percutaneous biopsy of the right lateral nodule on the right. We will await final pathology report. Shirin PATHOLOGY RESULTS REVIEWED 01/27/11: BENIGN. The biopsy at the 9 o'clock position in the right breast shows fibrocystic changes with extensive apocrine metaplasia. There was no atypia, no evidence of malignancy. The findings are concordant and six-month follow-up beginning with ultrasound should be undertaken. Manny Procedure Note Venkata Walters MD - 05/22/2022 ULTRASOUND-GUIDED VACUUM ASSISTED PERCUTANEOUS BIOPSY RIGHT BREAST WITH CLIP PLACEMENT AND DIGITAL UNILATERAL DIAGNOSTIC MAMMOGRAM RIGHT BREAST: The patient initially presented for possible aspiration of a right-sided nodule. Subsequently biopsy was undertaken. The procedure was explained to the patient prior to obtaining informed consent. Initially we took the patient to the ultrasound suite and attempted a cyst aspiration. The yielded some blackish fluid from the cystic spaces though that did not completely collapse the mass. Solid components remain and therefore vacuum assisted percutaneous biopsy with the 12 gauge Celero device was utilized. The skin was cleansed in a usual fashion. Superficial and deep anesthesia was undertaken. A lateral to medial transverse approach was utilized. Excellent correlation of the nodule being thoroughly biopsied. There was minimal residual tissue remaining at the end. A small clip was placed to robbie the site. Postprocedure radiographs show the clip to be in good position compared to prebiopsy images. There previously was a definable nodule. It is difficult to define a definable nodule at this time. The patient tolerated the procedure well and there are no complications. SUMMARY: Successful percutaneous biopsy of the right lateral nodule on the right. We will await final pathology report. Shirin PATHOLOGY RESULTS REVIEWED 01/27/11: BENIGN. The biopsy at the 9 o'clock position in the right breast shows fibrocystic changes with extensive apocrine metaplasia. There was no atypia, no evidence of malignancy. The findings are concordant and six-month follow-up beginning with ultrasound should be undertaken. MIRANDA/pierre Kylie Javed MD MAMMO ORDERABLES Final Res ult from Last 3 Months or Most Recently Relevant to Health Maintenance Additional Health Concerns Active Problems Noted Date Diagnosed Date Heart Failure Problem 05/12/2024 [place] * Guarantor: LE DIAZ Account Type Relation to Patient Date of Phone Billing Address Personal/Family [address] [place] [address] RX INFOCROSSING Medicaid RX [employer] PLANS (INTERNAL) [facility] [place] Member Subscriber Plan / Payer (Ef fective 2020-Present) Name:eL Diaz Relation to Subscriber:Self Name:Le Diaz Payer ID:Not on file Group ID:Not on file Type:Medicaid Address: [address] Advance Directives For more information, please contact: [phone] Documents on File Type Date Recorded Patient Conference Specialist Expl anation Advance Directive Living Will 07/23/2023 11:03 AM Advance Directive Living Will Advance Directive POA 07/23/2023 11:03 AM A dvance Directive POA * Full Code (Latest Code Status on File) Date Activated Date Inactivated Comments 09/12/2024 11:06 PM 09/15/2024 2:37 PM * Full Code Date Activated Date Inactivated Comments 08/30/2024 3:46 AM 08/30/2024 4:48 PM * Full Code Date Activated Date Inactivated Comments 08/22/2024 6:42 PM 08/26/2024 8:37 PM * Full Code Date Activated Date Inactivated Comments 08/18/2024 4:54 AM 08/18/2024 5:03 PM * Full Code Date Activated Date Inactivated Comments 08/14/2024 9:59 PM 08/16/2024 3:32 PM Care Teams Laboratory Phlebotomist Relationship Specialty Start Date End Date Delta Wade MD [address] [address] PCP - General Family Practice 03/25/24
--- NOTE | 2024-09-17 13:52 | XRR_ITS ---
PROCEDURE INFORMATION: Exam: XR Chest Exam date and time: 09/17/2024 2:04 PM Age: 59 years old Clinical indication: Shortness of breath; Additional info: SOB TECHNIQUE: Imaging protocol: Radiologic exam of the chest. Views: 1 view. COMPARISON: CR XR chest 1V portable [id number] 06/06/2024 3:01 PM FINDINGS: Lungs: Mild left basilar opacity is slightly more prominent. Lung volumes are low. Pleural spaces: Unremarkable. No pleural effusion. No pneumothorax. Heart/Mediastinum: Unremarkable. No cardiomegaly. Bones/joints: Unremarkable. XR/XR chest 1V portable [id number] IMPRESSION: Mild left basilar opacity which is increased.
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
--- NOTE | 2024-09-17 14:03 | ECG_ITS ---
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 Measurements Intervals Withams Rate: 97 P: 0 SD: 0 QRS: 61 QRSD: 90 T: -16 QT: 336 QTc: 429 Interpretive Statements ATRIAL FIBRILLATION NONSPECIFIC ST & T-WAVE ABNORMALITY Compared to ECG 08/19/2024 22:33:31 Ectopic atrial rhythm no longer present T-wave abnormality still present Electronically Signed On 09-22-2024 09:38:23 CDT by David Escalante M.D. [email or web address]
[2024-09-17] MEDS: HYDROmorphone 0.5 MG/0.5 ML INJ 1 MG IVP (14:30)
[2024-09-17 14:37] LABS: Basophils % 0.5 %; Eosinophils # 0.1 10^3/uL (0.0-0.8); Eosinophils % 1.7 %; Hematocrit 35.6 % (36-47); Lymphocytes # 1.6 10^3/uL (0.8-4.8); Lymphocytes % 24.8 %; Mean Corpuscular HGB Conc 30.9 g/dL (30-55); Mean Corpuscular Hemoglobin 30.9 pg (27-33); Mean Platelet Volume 10.7 fL (7.4-10.4); Monocytes # 0.9 10^3/uL (0.2-0.9); Monocytes % 13.4 %; Neutrophils % 57.4 %; Nucleated Red Blood Cells # 0.6 /100WBC; Nucleated Red Blood Cells % 8.9 %; Platelet Count 174 10^3/cmm (157-399); Red Blood Count 3.56 10^6/uL (3.85-5.65); Red Cell Distribution Width 19.1 % (12.1-15.1); White Blood Count 6.44 10^3/uL (3.29-11.43)
[2024-09-17] MEDS: metoprolol tartrate 1 mg/1 mL SDV 5 mL 5 MG IVP (14:38)
--- NOTE | 2024-09-17 14:48 | PC.NURSE ---
pt states she was dx with afib 3 months ago at [facility]. pt takes metoprolol and warfarin because of this. PA informed.
[2024-09-17 14:50] LABS: Alanine Aminotransferase 37 U/L (0-33); Albumin Level 3.5 g/dL (3.5-5.2); Alkaline Phosphatase 111 U/L (35-105); Aspartate Amino Transferase 17 U/L (0-32); Blood Urea Nitrogen 16 mg/dL (6-20); Calcium 9.8 mg/dL (8.5-10.5); Carbon Dioxide 27 mmol/L (22-29); Chloride 99 mmol/L (98-107); Creatinine Clr Calc Pharmacy 116.5019; Globulin 2.8 g/dL (1.3-4.6); Glomerular Filtration Rate 102.3 mL/min (90-130); Glucose 224 mg/dL (65-115); Osmolality Calculated 294 mOsm/kg (285-295); Sodium 138 mmol/L (136-145); Total Bilirubin 0.2 mg/dL (0.15-1.2); Total Protein 6.3 g/dL (6.6-8.7)
[2024-09-17] MEDS: oxyCODONE-APAP 5-325 mg Tablet 1 TAB PO (15:08)
[2024-09-17 15:12] VITALS: BP 141/82; PULSE 104; RESP 18; O2SAT 94
[2024-09-17 15:39] VITALS: BP 134/92; PULSE 95; RESP 16; O2SAT 95
== END 2024-09-17 15:47 | disposition home or self-care (01) ==
PROVIDERS: Emergency Medicine; Emergency Provider Physician Assistant; PCP Family Medicine
DX: G89.29 Other chronic pain (principal); I48.91 Unspecified atrial fibrillation; Z79.01 Long term (current) use of anticoagulants; Z79.4 Long term (current) use of insulin; Z87.891 Personal history of nicotine dependence; J44.9 Chronic obstructive pulmonary disease, unspecified; I10 Essential (primary) hypertension; I25.110 Atherosclerotic heart disease of native coronary artery with unstable angina pectoris
CPT/HCPCS: 71045; 80053; 85025; 85610; 93005; 96374; 96375; 99285; J1171; J3490; J9999

== ENCOUNTER 2024-09-18 03:55 | Emergency (ER) | payer MEDICAID, SELFPAY ==
--- OUTSIDE RECORDS SUMMARY | 2020-06-27 10:30 | XMS_ITS | Continuity of Care Document ---
Author Organization [facility] Address [address] [place] [address] Phone Care Team Providers Care Lead Clinical Research Coordinator Name Role Phone Unavailable Unavailable Unavailable Allergies, [...] - Active Procedures Procedure Date OFFICE/OUTPATIENT VISIT, [facility] Advance Directives Directive Yes / No Effective Date File Name No Information Encounters Encounter Description Practice Location Reason(s) For Visit Diagnoses Date Provider Providers Copied on Encounter OFFICE/OUTPA TIENT VISIT, [facility], [address], [place], [place], [address] , [place] tel: [phone] [facility] follow up (chief complaint) COPDEssential (primary) hypertensionAthero sclerotic cardiac diseaseTobacco use disorder, moderateCancer of vagina No Information Family History Family Member Type Diagnosis Age At Onset Mother Problem malignant neopla sm of breast in first degree relative Mother Problem coronary arteriosclerosis Sister Problem stroke Father Problem coronary arteriosclerosis Mother Problem hypertension Payers Payer name Insurance type Covered alliance party ID Authoriza dioni(s) Medicaid - Medical [id number] Social History Type Description Quantity Date Captured [...] her vagina and is being managed at [facility]. Patient has HTN, hip pain, and [...] her vagina and is being managed at [facility]. Patient has HTN, hip pain, and [...]
--- OUTSIDE RECORDS SUMMARY | 2024-07-19 03:00 | XMS_ITS ---
Author Organization [facility] Address [address] [place] [address] Care Team Providers Care Enterprise Software Engineer Name Role Phone Delta Wade Primary Care Provider Jose Cruz Harvey [phone] REASON FOR VISIT [phone] Encounters Encounter Location Date Provider Diagnosis [facility] [address] [place] [address] [place] [address] 07/19/2024 Jose Cruz Forde Plan Of Treatment No Information Progress Notes * GIANFRANCO DIAZDOB: 6 (59 yo F)Acc No.[id number]:07/19/2024 Pulmonary Function Test Patient: Jahaira GIANFRANCO HANNA Provider: Abdirahman Forde MD :1965 A ge:59 Y S ex:Female Date:07/19/2024 Address:[address] [place], [place] [phone] Pcp:Delta Wade Subjective: * Chief Complaints: * 1 . [id number]. * Medical History: Objective: * Vitals: Assessment: Plan: * Treatment: * Billing Information: * Visit Code: * Procedure Codes: * Electronic signature of Natasha Forde MD on 09/18/2024 at 03:58 AM CDT Sign off status: Pending * Provider: Abdirahman Forde MD Date: 07/19/2024 Generated for Sydnii ng/Fatereg/eTransmitting on: 0 09/18/2024 03:58 AM CDT
--- OUTSIDE RECORDS SUMMARY | 2024-07-19 05:10 | XMS_ITS ---
Author Organization [facility] Address [address] [facility] [place] [address] Care Team Providers Care Toaster Element Repairer Name Role Phone Delta Wade Primary Care Provider Jose Cruz Harvey Unavailable [phone] REASON FOR VISIT abnormal chest CT Medications [...] Diagnosis [facility] [address] [place] [address] [place] [address] 07/19/2024 Jose Cruz Forde Solitary pulmonary nodule [...] remission (ICD-10 - F17.211) Patient smoked a gbck-pau-szu for 45 years. She has been abstinent [...] cigaret taiwo, in remission Patient smoked a woho-noj-lto for 45 yea rs. She has been abstinent for a year now. Shortness of breath Obtain PFT. Progress Notes * DIAZ, GIANFRANCO PageDOB: 6 (59 yo F)Acc No.[id number]:07/19/2024 Progress Notes Patient: GIANFRANCO GARCIA Provider: Abdirahman Forde MD :1965 A ge:59 Y S ex:Female Date:07/19/2024 Address:[address] [place], [place] [phone] Pcp:Delta Wade Subjective: * Chief Complaints: * [...] ION 07/08/24 but was hospitalized twice at [facility] and unable to complete her [...] cigarettes, in remission Notes: Patient smoked a whpu-vbb-zrq for 45 years. She has been abstinent [...] 07/19/2024 Generated for Mani contreras/Moshe/Adrianitting on: 0 09/18/2024 03:58 AM CDT History and Physical Notes * [...] ION 07/08/24 but was hospitalized twice at [facility] and unable to complete her [...]
--- OUTSIDE RECORDS SUMMARY | 2024-07-22 05:00 | XMS_ITS ---
Author Organization [facility] Address [address] [place] [address] Care Team Providers Care Medical Transcription Editor Name Role Phone Delta Wade Primary Care Provider Jose Cruz Harvey [phone] Encounters Encounter Location Date Provider Diagnosis [facility] [address] [place] [address] [place] [address] 07/22/2024 Jose Cruz Forde Plan Of Treatment No Information Progress Notes * GIANFRANCO DIAZDOB: [birth year] (59 yo F)Acc No.[id number]:07/22/2024 Patient: Jahaira HANNA GIANFRANCO Page Provider: Abdirahman Forde MD :1965 A ge:59 Y S ex:Female Date:07/22/2024 Address:[address] [place], [place] [phone] Pcp:Delta Wade * Billing Information: * Visit Code: * Procedure Codes: * Electronic signature of Natasha Forde MD on 09/18/2024 at 03:59 AM CDT Sign off status: Pending * Provider: Abdirahman Forde MD Date: 07/22/2024 Generated for Printi ng/Fatereg/eTransmitting on: 09/18/2024 03:59 AM CDT
--- OUTSIDE RECORDS SUMMARY | 2024-09-18 03:59 | XMS_ITS | Patient Health Record ---
Author Organization [facility] Address [address] [place] [address] Care Team Providers Care Technical Supervisor Name Role Phone Delta Wade Primary Care Provider Unavailabl Jose Cruz Callejas Unavailable [phone] Yakov Saonn Unavailable [phone] Marcia Perez Unavailable [phone] Gregorio Montes Unavailable [phone] Annetta London Unavailable [phone] Masoud Bello Unavailable [phone] Liana Acacia Unavailable [phone] Eliu Raia Unavailable [phone] Allergies Allergen (clinical drug ingredient) Drug/Non Drug Allergy documented on EMR Reaction Allergy Type Onset Date Status Compazine Unknown Drug Allergy Active ketorolac Ketorolac Unknown Drug Allergy Active Results Component Value Reference Range Notes zzzHeart Cath Lt poss PTCA Reviewed date:11/30/2023 12:40:58 PM Interpretation: Performing Lab: Notes/Report: See Below For Report This report was dictated outside of the PneumRx system. 3523 @ 0100 Read See Below For Report Echo Complete [id number] Reviewed date:11/30/2023 12:41:13 PM Interpretation: Performing Lab: Notes/Report: Cardiopulmonary Services Name: GIANFRANCO DIAZ Study Date: 11/27/2023 : 1965 Patient Location: [facility] Age: 58 yrs Gender: [...] date:11/30/2023 12:41:13 PM Interpretation: Performing Lab: Notes/Report: [id number] Echo Complete [id number] Reviewed date:11/30/2023 12:41:13 PM Interpretation: Performing Lab: Notes/Report: [id number]=iSite Schedule Confirmation Reviewed date:07/03/2024 04:23:35 PM Interpretation: Performing Lab: Notes/Report: CT Chest ION Endoluminal Schedule Confirmation Reviewed date:07/13/2024 07:16:00 PM Interpretation: Performing Lab: Notes/Report: CT Chest ION Endoluminal Schedule Confirmation Reviewed date:07/04/2024 04:08:48 PM Interpretation: Performing Lab: Notes/Report: CT Chest ION Endoluminal Schedule Confirmation Reviewed date:07/03/2024 04:23:35 PM Interpretation: Performing Lab: Notes/Report: CT Chest ION Endoluminal zzzHeart Cath Lt poss PTCA Reviewed date:05/16/2024 05:08:19 PM Interpretation: Performing Lab: Notes/Report: See Below For Report This report was dictated outside of the PneumRx system. trop 2nd@ 3510 @ 0021 Read See Below For Report Schedule Confirmation Reviewed date:05/16/2024 05:08:19 PM Interpretation: Performing Lab: Notes/Report: Heart Cath Lt poss PTCA Schedule Confirmation Reviewed date:05/16/2024 05:08:19 PM Interpretation: Performing Lab: Notes/Report: Heart Cath Lt poss PTCA zzzHeart Cath Lt poss PTCA Reviewed date:05/16/2024 05:08:19 PM Interpretation: Performing Lab: Notes/Report: [id number]=iSite Partial Thromboplastin Time 40257 Reviewed date:05/16/2024 05:08:19 PM Interpretation: Performing Lab: Notes/Report: trop 2nd@ 3510 @ 0021 3510 @ 0021 PTT 27.1 22.6-31.8 SEC Therapeutic Range: 60-100. Critical Value Starting at > 100. Prothrombin Time 07026 Reviewed date:05/16/2024 05:08:19 PM Interpretation: Performing Lab: Notes/Report: trop 2nd@ 205 3510 @ 0021 3510 @ 0021 ProTime 10.8 9.1-11.9 SEC Normal Range: 9.1-11.9 INR 1.02 .90-1.20 Therapeutic Range: 2.0-3.0 Therapaeutic Range for heart valve replacement: 2.5-3.50 NM HB Scan w/ejection fracti on-04094 Reviewed date:01/05/2024 04:37:06 PM Interpretation: Performing Lab: Notes/Report: See Below For Report NM HB Scan w/ejection fraction 2407 @ 2313 Read See Below For Report NM HB Scan w/ejection fracti on37907 Reviewed date:01/05/2024 04:36:45 PM Interpretation: Performing Lab: Notes/Report: [email or web address]=[id number]=iSite Reason For Referral Reason COPD; 06/07: 1 wk pe r Eula 06/07: Left Message SCHEDULED 06/20 @ 2:10 PM Diagnosis 1 Chronic obstructive pulmonary disease, unspecified (J44.9) Referring Provider First Name ER Referring Provider Last Name [facility] Referring Provider Speciality Emergency Medicine Referred Organization [facility] Referred Provider Jose Cruz Landry Referred Address [address] [place] [address] [place], [place],[address], Referred Provider Specialty Pulmonary Di seases General [...] Date Status Comme nts Influenza (whole), CPT 60313 Inactive Unknown 01/04/2024 Administered Social History Tobacco Use: Social History Observation Description Date Details (start date - stop date) Former Smoker NA - NA Tobacco Control (Standard) Question Answer Notes Tobacco use: Former smoker How long has it been since you last smoked? 1-5 years Problems Problem Type SNOMED Code ICD Code Onset Dates Problem Status W/U Status Risk Notes Problem [id number] Nicotine dependence, cigarettes, in remission (F17.211) Active confirmed Problem Ischemic cardiomyopathy (009303650) Ischemic cardiomyopathy (I25.5) Active confirmed Problem Chronic obstructive pulmonary disease (24361182) Chronic obstructive pulmonary disease, unspecified (J44.9) Active confirmed Problem Gastro-esophageal reflux disease without esophagitis (178109822) Gastro-esophageal reflux disease without esophagitis (K21.9) Active confirmed Problem C-reactive protein abnormal (329955051) Elevated C-reactive protein (CRP) (R79.82) Active confirmed Problem 682274668 Solitary pulmona ry nodule (R91.1) Active confirmed Problem Long-term current use of anticoagulant (921437077) 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 (Z79.01) Active confirmed Problem Atherosclerotic heart disease of [place] coronary artery without angina pectoris (893327675521372) Arteriosclerosis of coronary artery (I25.10) Active confirmed Problem H/O heart artery stent (Z95.5) Active confirmed Problem Long-term current use of anticoagulant (036052546) Anticoagulated (Z79.01) Active confirmed Problem Angina (790200222) Atheroscleros is of [place] coronary artery of [place] heart with angina pectoris (I25.119) Active confirmed Problem Acute non-ST segment elevation myocardial infarction (656797149) Non-ST elevated myocardial infarction (I21.4) Active confirmed Problem History of pulmonary embolus (742205311) Hx of pulmonary embolus (Z86.711) Active confirmed Problem Coronary stent patent (337343054) Coronary stent patent (Z95.5) Active confirmed Problem 314806153 Chronic hypoxic respiratory failure (J96.11) Active confirmed Vital Signs Heart Rate 90 /min 06/20/2024 Temperature 98.6 degrees Fahrenheit 06/20/2024 Respiratory Rate 20 /min 06/20/2024 Height-cm 162.56 cm 06/20/2024 Oximetry 93 % 06/20/2024 Blood pressure diastolic 83 mm Hg 06/20/2024 Weight-kg 97 kg 06/20/2024 Height 64 in 06/20/2024 Blood pressure systolic 120 mm Hg 06/20/2024 Weight 213.85 lbs 06/20/2024 BMI 36.7 kg/m2 06/20/2024 Procedures Procedure Date Ordered Date Performed Result Body Sit e PFT with FRC: (NO TGV) 06/20/2024 N/A Encounters Encounter Location Date Provider Diagnosis [facility] [address] [place] [address] 09/22/2023 [facility] [address] [place] [address] 09/23/2023 [facility] [address] [place] [address] 02/17/2024 Gregorio Montes [facility] [place] [address] [place] [address] 06/06/2024 Masoud Bello Other fracture of unspecified lumbar vertebra, initial encounter for closed fracture S32.008A [facility] [facility] [address] [place] [address] [place] [address] 06/30/2024 Jose Cruz Landry [facility] [address] [place] [address] 10/01/2023 Yakov Sanon Acute pain of left shoulder M25.512 [facility] [facility] [address] [place] [address] [place] [address] 06/20/2024 Jose Cruz Eula Solitary pulmonary nodule R91.1 ; Chronic hypoxic respiratory failure J96.11 ; Nicotine dependence, cigarettes, in remission F17.211 and Shortness of breath R06.02 Assessments Encounter Date Diagnosis (ICD Code) Assessment Notes Treatment Notes Treatment Clinical Notes Section Notes 10/01/2023 Acute pain of left shoulder (ICD-10 - M25.512) Discussed w/ pt once she gets over the acute pain, we will have start physical therapy. Patient to rest her shoulder and continue wearing sling. Typicaly I would start a NSAID, however I am unable to due to her taking Warfarin. RTC 2 weeks. 06/06/2024 Other fracture of unspecified lumbar vertebra, initial encounter for closed fracture (ICD-10 - S32.008A) 06/20/2024 Solitary pulmonary nodule (ICD-10 - R91.1) [...] above 89% given history of heart failure. 06/20/2024 Nicotine dependence, cigarettes, in remission (ICD-10 - F17.211) Patient smoked a [id number]-wpz for 45 years. She has been abstinent [...] Test Test Name Order Date Lumbosacral Spine AP/Lat-77630 5 PFT with FRC: (NO TGV) 06/20/2024 CT Chest ION Endoluminal-14649 5 Insurance Providers Payer Name Payer Address Payer Phone Subscriber Number Group Number Insured Name Patient Relationship to Insured Coverage Start Date Coverage End Date [place] Medicaid [address] [place] [address] [id number] GIANFRANCO DIAZ Self - patient is the insured Medical (General) History Medical History History ICD Code measles mumps Chicken Pox whooping cough (pertussis) Pneumonia Heart Disease diabetes mellitus High Blood Pressure asthma cancer Heart Disease Back Trouble Surgical History Surgery Date(Month/Year) spleen 05/2023 NSTEMI (non-ST elevated myocardial infar ction 04.04.2024 Breast Hospitalization History Reason Date(Month/Year) NSTEMI (non-ST elevated myocardial infar ction 04.04.2024 speen 05/2023
--- OUTSIDE RECORDS SUMMARY | 2024-09-18 03:59 | XMS_ITS | CCD ---
Author Name Interface, [facility] Address [facility] [place] [address] [facility] Address [address] [place] [address] Care Team Providers Care Imaging System Administrator Name Role Phone Anika VALLADARES, Allen Unavailable Unavailable Allergies and Adverse Reactions Reason for Visit Medications Problems Social History
[2024-09-18 04:05] VITALS: BP 157/88; PULSE 94; RESP 22; TEMP 36.9; O2SAT 91; BMI 38.0
--- NOTE | 2024-09-18 04:08 | XRR_ITS ---
PROCEDURE INFORMATION: Exam: XR Chest Exam date and time: 09/18/2024 4:08 AM Age: 59 years old Clinical indication: Shortness of breath; Prior surgery; Surgery date: 6+ months; Surgery type: Cervical fusion; C/O SOB TECHNIQUE: Imaging protocol: Radiologic exam of the chest. Views: 1 view. COMPARISON: CR (CHEST, ) 09/17/2024 2:04 PM FINDINGS: Lungs: Lungs are clear bilaterally. Pleural spaces: No pleural effusion. No pneumothorax. Heart/Mediastinum: Stable moderate enlargement of the cardiac silhouette. Mediastinal contours are unremarkable. Vasculature: Stable vascular calcifications in the aorta. Bones/joints: Degenerative changes in the spine and shoulders. Postsurgical changes consistent with previous fusion in the lower cervical spine. Osseous findings are stable. XR/XR chest 1V portable 43732 IMPRESSION: 1. No acute cardiopulmonary process. 2. Incidental/nonacute findings are listed in the report.
[2024-09-18 04:15] VITALS: PULSE 72; RESP 20; O2SAT 93
[2024-09-18] MEDS: ipratropium-albuterol 3 mL Neb INHALATION (04:17)
[2024-09-18 04:20] VITALS: PULSE 90; RESP 20; O2SAT 93
--- NOTE | 2024-09-18 04:30 | ECG_ITS ---
[facility] Test Date: 2024-09-18 Pat Name: Le Barnhart Department: Room: Gender: Female Documentum Consultant: : 1965 Requested By: Sergio Queen Order Number: [id number] Lopez MD: David Escalante M.D. Measurements Intervals Gregory Rate: 92 P: 49 LA: 152 QRS: 65 QRSD: 86 T: 26 QT: 347 QTc: 431 Interpretive Statements SINUS RHYTHM POSSIBLE LEFT ATRIAL ENLARGEMENT [-0.1mV P-WAVE IN V1/V2] NONSPECIFIC T-WAVE ABNORMALITY Compared to ECG 09/17/2024 14:09:19 Atrial fibrillation no longer present T-wave abnormality still present Electronically Signed On 09-22-2024 09:37:08 CDT by David Escalante M.D. [email or web address]
[2024-09-18 04:50] VITALS: BP 157/88; PULSE 90; RESP 24; O2SAT 96
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
[2024-09-18] MEDS: HYDROmorphone 0.5 MG/0.5 ML INJ 1 MG IM (05:31)
[2024-09-18] MEDS: dexamethasone 10 mg/mL INJ IM (05:32)
[2024-09-18 05:43] VITALS: BP 101/81; PULSE 65; RESP 22; O2SAT 94
== END 2024-09-18 05:44 | disposition home or self-care (01) ==
PROVIDERS: Emergency Provider Emergency Medicine; PCP Family Medicine
DX: J44.9 Chronic obstructive pulmonary disease, unspecified (principal); G89.29 Other chronic pain; Z79.01 Long term (current) use of anticoagulants; Z79.4 Long term (current) use of insulin; Z87.891 Personal history of nicotine dependence; I25.10 Atherosclerotic heart disease of native coronary artery without angina pectoris; I10 Essential (primary) hypertension; E11.9 Type 2 diabetes mellitus without complications
CPT/HCPCS: 71045; 93005; 94640; 96372; 99284; J1100; J1171; J9999

== ENCOUNTER 2024-09-18 16:38 | Emergency (ER) | payer MEDICAID, SELFPAY ==
--- OUTSIDE RECORDS SUMMARY | 2020-06-27 10:30 | XMS_ITS | Continuity of Care Document ---
Author Organization [facility] Address [address] [place] [address] Phone Care Team Providers Care Install Technician Name Role Phone Unavailable Unavailable Unavailable Allergies, [...] - Active Procedures Procedure Date OFFICE/OUTPATIENT VISIT, [facility] Advance Directives Directive Yes / No Effective Date File Name No Information Encounters Encounter Description Practice Location Reason(s) For Visit Diagnoses Date Provider Providers Copied on Encounter OFFICE/OUTPA TIENT VISIT, [facility], [address], [place], [place], [address] , [place] tel: [phone] [facility] follow up (chief complaint) COPDEssential (primary) hypertensionAthero sclerotic cardiac diseaseTobacco use disorder, moderateCancer of vagina No Information Family History Family Member Type Diagnosis Age At Onset Mother Problem malignant neopla sm of breast in first degree relative Mother Problem coronary arteriosclerosis Sister Problem stroke Father Problem coronary arteriosclerosis Mother Problem hypertension Payers Payer name Insurance type Covered democrat ID Authoriza dioni(s) Medicaid - Medical [id number] Social History Type Description Quantity Date Captured [...] her vagina and is being managed at [facility]. Patient has HTN, hip pain, and COPD.Patient [...] her vagina and is being managed at [facility]. Patient has HTN, hip pain, and COPD.Patient [...]
--- OUTSIDE RECORDS SUMMARY | 2024-09-10 11:40 | XMS_ITS | Encounter Summary ---
Author Organization [facility] Address [address] [place] [address] Care Team Providers Care Storm Sash Maker Name Role Phone Delta Wade MD Primary Care Provider [phone] Reason for Visit * Reason Comments Fluid Management Pt stated she is her e for fluid management day 2. Pt stated she is having shortness of breath and takes a diuretic at home. Pt family stated she is worse today. * Auth/Cert (Routine) Specialty Diagnoses / Procedures Referred By Marcelle smith Referred To Contact Emergency Medicine [facility] Emergency Department [address] [place] [phone] Phone: tel: fax: Referral ID Status Reason Start Date Expiration Date Visits Re quested Visits Authorized [id number] 1 1 Encounter Details Date Type Department Care Team (Latest Contact Info) Description 09/10/2024 11:40 AM CDT - 09/10/2024 11:59 PM T Hospital Encounter [facility] [address] [place] [phone] Don Causey DO [address] [facility] [address] [place] [address] Discharge Disposition: Home or Self [...] How often do you attend chur or worship services? 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 Return to the [facility] if any problems or [...] with Josie. 12/29/2022 naloxone (NARCAN) 4 mg/spray [place], Non-Aerosol EMERGENCY USE ONLY: Administer 1 spray [...] PLAN: ICD-10-CM ICD-9-CM 1. COPD with exacerbation (CMS/[facility]) J44.1 491.21 documented in this encounter Plan of Treatment Upcoming Encounters Date Type Department Care Team (Late st Contact Info) Description 09/22/2024 10:00 AM CDT Office Visit [facility] Neurosurgery [address] [place] [address] [place] [address] Jerson Salas PA [address] [place] [address] 10/06/2024 4:00 PM CDT Office Visit [facility] Pulmonology [address] [place] [address] [place] [address] Cristian Metcalf FNP [address] [place] [address] documented as of this encounter [...] encounter Visit Diagnoses Diagnosis COPD with exacerbation ([facility])- Primary Obstructive chronic bronchitis with exacerbation documented [...] documented as of this encounter Care Teams Storm Sash Maker Relationship Specialty Start Date End Date Delta Wade MD [address] [address] PCP - General Family Practice 03/25/24 documented as of this encounter
--- OUTSIDE RECORDS SUMMARY | 2024-09-10 12:46 | XMS_ITS | Encounter Summary ---
Author Organization [facility] Address [address] [place] [address] Care Team Providers Care Jewelry Consultant Name Role Phone Delta Wade MD Primary Care Provider [phone] Reason for Visit * Auth/Cert (Routine) Specialty Diagnoses / Procedures Referred By Marcelle smith Referred To Contact Emergency Medicine [facility] Emergency Department [address] [place] [phone] Phone: tel: fax: Referral ID Status Reason Start Date Expiration Date Visits Re quested Visits Authorized [id number] 1 1 Encounter Details Date Type Department Care Team (Latest Contact Info) Description 09/10/2024 12:46 PM CDT - 09/10/2024 11:59 PM CDT Hospital Encounter [facility] [address] [place] [phone] Don Causey DO [address] [place] [address] Discharge Disposition: Home or Self [...] often do you attend chur ch or hoahaoism services? 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 1 Each 08/27/2023 TechLITE Pen Needle 29 gauge x 1/2 Needle USE directed with Vicdenise. 12/29/2022 naloxone (NARCAN) 4 mg/spray [place], Non-Aerosol EMERGENCY USE ONLY: Administer 1 spray (4 mg) in one nostril one time. May repeat in alternating nostrils every 2-3 min until responsive or EMS arrives. 2 Each 3 01/06/2023 blood sugar diagnostic StripIndications: Type 2 diabetes mellitus without complication, without long-term current use of insulin ([facility]) Use to test blood glucose up to QID PRN symptoms. 100 Each 11 12/17/2022 OneTouch Delica Plus Lancet 30 gauge USE TO test fasting blood glucose DAILY 11/04/2022 Blood-Glucose Meter KitIndications:Ty pe 2 diabetes mellitus without complication, without long-term current use of insulin ([facility]) Use to test blood glucose [...] Description 09/22/2024 10:00 AM CDT Office Visit [facility] [address] [place] [address] Jerson Salas PA [address] [place] [address] 10/06/2024 4:00 PM CDT Office Visit [facility] Pulmonology [address] [place] [address] Cristian Metcalf FNP [address] [place] [address] documented as of this encounter [...] documented as of this encounter Care Teams Jewelry Consultant Relationship Specialty Start Date End Date Delta Wade MD [address] [place] [id number] PCP - General Family Practice 03/25/24 documented as of this encounter
--- OUTSIDE RECORDS SUMMARY | 2024-09-10 20:59 | XMS_ITS | Encounter Summary ---
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 quantitation. Blood Venipuncture / Unknown 09/10/2024 9:30 PM CDT 09/10/2024 9:36 PM CDT [facility] - 09/10/2024 10:08 PM CDT Troponin elevated. Layton Barrow MD CHEMISTRY ORDERABLES Final Resu lt [facility] CLIA # [id number] [address] [place] [address] [place] [address] * D-DIMER (09/10/2024 9:30 PM CDT) [facility] D-DIMER QUANT <0.27 0.00 - 0.50 ug/mL FEU 09/10/2024 10:03 PM CDT [facility] Blood Venipuncture / Unknown 09/10/2024 9:30 PM CDT 09/10/2024 9:33 PM CDT [facility] - 09/10/2024 10:03 PM CDT D-Dimer assay cutoff value for exclusion of DVT and/or PE is <0.50 ug/mL FEU. As D-Dimer levels increase naturally with age, age stratification for patients over 50 is potentially more appropriate in determining whether a patient should undergo further evaluation for DVT and/or PE than a general cutoff of 0.50 ug/mL FEU. Clinical consideration is recommended. Age Stratified Cutoff Values: 50-60 years: 0.50-0.60 ug/mL FEU 61-70 years: 0.61-0.70 ug/mL FEU 71-80 years: 0.71-0.80 ug/mL FEU Layton Barrow MD HEMATOLOGY ORDERABLES Final Res ult [facility] CLIA # [id number] [address] [address] [place] [address] * (ABNORMAL) COMPREHENSIVE METABOLIC PANEL (09/10/2024 9:30 PM CDT) SODIUM 140 136 - 145 mmol/L 09/10/2024 10:15 PM CDT [facility] POTASSIUM 5.1 3.5 - 5.1 mmol/L 09/10/2024 10:15 PM CDT [facility] Comment:Moderate hemolysis p resent. Can cause significant falsely elevated result. Redraw if indicated. CHLORIDE 105 98 - 107 mmol/L 09/10/2024 10:15 PM T [facility] CO2 19(L) 22 - 29 mmol/L 09/10/2024 10:15 PM CDT [facility] CALCIUM 9.5 8.6 - 10.0 mg/dL 09/10/2024 10:15 PM CDT [facility] BUN 23(H) 6 - 20 mg/dL 09/10/2024 10:15 PM CDT [facility] CREATININE 0.59 0.51 - 0.95 mg/dL 09/10/2024 10:15 PM CDT [facility] GLUCOSE 454(HH) 74 - 99 mg/dL 09/10/2024 10:15 PM CDT [facility] TOTAL PROTEIN 6.8 6.4 - 8.3 g/dL 09/10/2024 10:15 PM CDT [facility] ALBUMIN 3.9 3.5 - 5.2 g/dL 09/10/2024 10:15 PM CDT [facility] BILIRUBIN TOTAL 0.2 0.0 - 1.0 mg/dL 09/10/2024 10:15 PM T [facility] ALKALINE PHOSPHATASE 115(H) 35 - 104 U/L 09/10/2024 10:15 PM CDT [facility] AST 44(H) 10 - 35 U/L 09/10/2024 10:15 PM CDT [facility] Comment:Hemolysis present. R esult may be falsely elevated. ALT 59(H) <=35 U/L 09/10/2024 10:15 PM CDT [facility] Comment:Hemolysis present. R esult may be falsely elevated. GFR >60 >=60 mL/min/1. 73 sq meter 09/10/2024 10:15 PM CDT [facility] Comment:eGFR calculated with 2020 CKD-EPI equation. Vegetarian diet, extremely high or low muscle mass, and may affect results. Cystatin C with Glomerular Filtration Rate is a suitable alternative for these patients. ANION GAP 16 9 - 20 mmol/L 09/10/2024 10:15 PM T [facility] Blood Venipuncture / Unknown 09/10/2024 9:30 PM CDT 09/10/2024 9:36 PM CDT Layton Barrow MD CHEMISTRY ORDERABLES Final Resu lt [facility] CLIA # [id number] [address] [place] [address] * (ABNORMAL) CBC WITH DIFFERENTIAL (09/10/2024 9:30 PM CDT) [facility] WBC 7.3 4.8 - 10.8 K/uL 09/10/2024 10:01 PM CDT [facility] NRBCS 3(H) <1 % 09/10/2024 10:01 PM CDT [facility] RBC 3.60(L) 4.20 - 5.40 M/uL 09/10/2024 10:01 PM CDT [facility] HEMOGLOBIN 11.1(L) 12.0 - 16.0 g/dL 09/10/2024 10:01 PM CDT [facility] HEMATOCRIT 35.7(L) 36.0 - 46.0 % 09/10/2024 10:01 PM [facility] MCV 99.2 84.0 - 103.0 fL 09/10/2024 10:01 PM [facility] MCH 30.8 27.0 - 34.0 pg 09/10/2024 10:01 PM [facility] MCHC 31.1 30.0 - 35.0 g/dL 09/10/2024 10:01 PM [facility] PLATELETS 195 140 - 440 K/uL 09/10/2024 10:01 PM [facility] MPV 11.2 8.9 - 12.8 fL 09/10/2024 10:01 PM [facility] RDW 18.9(H) 11.0 - 14.5 % 09/10/2024 10:01 PM [facility] RDW-STDEV 67.7(H) 37.0 - 54.0 fL 09/10/2024 10:01 PM [facility] SMEAR REVIEWED: - See Manual Diff. 09/10/2024 10:01 PM [facility] Blood Venipuncture / Unknown 09/10/2024 9:30 PM CDT 09/10/2024 9:33 PM CDT us Layton Barrow MD HEMATOLOGY ORDERABLES [id number] [address] [place] [id number] documented in this encounter Visit Diagnoses Diagnosis Chronic hypoxemic respiratory failure (CMS/HCC)- Primary Chronic respiratory failure Type 2 diabetes mellitus with hyperglycemia, with long-term current use of insulin (CMS/HCC) Pulmonary emphysema, unspecified emphysema type (CMS/HCC) documented in this encounter Administered Medications Inactive Administered Medications - up to 3 most recent administrations Medication Order MAR Action Action Date Dose Rate Site acetaminophen (TYLENOL) tablet 1,000 mg 1,000 mg, Oral, ONE TIME ONLY, 1 dose, On 09/10/24 at 2130, Stat Given 09/10/2024 9:34 PM CDT 1,000 mg albuterol (PROVENTIL,VENTOLIN) inhalation solution 5 mg 5 mg, Inhalation, ONE TIME ONLY RESPIRATORY, 1 dose, On 09/10/24 at 2130, Routine Given 09/10/2024 9:34 PM CDT 5 mg albuterol (PROVENTIL,VENTOLIN) inhalation solution 5 mg 5 mg, Inhalation, ONE TIME ONLY RESPIRATORY, 1 dose, On 09/10/24 at 2315, Routine Given 09/10/2024 11:06 PM CDT 5 mg insulin regular (HumuLIN R,NovoLIN R) injection 5 Units 5 Units, IV, ONE TIME ONLY, 1 dose, On 09/10/24 at 2245, Stat Given 09/10/2024 10:54 PM CDT 5 Units ipratropium-albuteroL (DUONEB) 0.5 mg-3 mg(2.5 mg base)/3 mL inhalation solution 3 mL 3 mL, Inhalation, ONE TIME ONLY RESPIRATORY, 1 dose, On 09/10/24 at 2130, Routine Given 09/10/2024 9:34 PM CDT 3 mL lactated ringers bolus solution 500 mL 500 mL, IV, ONE TIME ONLY, 1 dose, On 09/10/24 at 2230, at 999 mL/hr, Administer over 30 Minutes, Stat New Bag 09/10/2024 10:55 PM CDT 500 mL 999 mL/hr methocarbamoL (ROBAXIN) tablet 750 mg 750 mg, Oral, ONE TIME ONLY, 1 dose, On 09/10/24 at 2130, Stat Given 09/10/2024 9:34 PM CDT 750 mg morphine (MS IR) tablet 15 mg 15 mg, Oral, ONE TIME ONLY, 1 dose, On 09/10/24 at 2300, Stat Given 09/10/2024 11:38 PM CDT 15 mg SODIUM CHLORIDE 0.9 % FOR NEBULIZATION (CABINET OVERRIDE) 1 dose, Starting on 09/10/24 at 2305, Until 09/10/24 at 2306, Evelyn López: cabinet override Given 09/10/2024 11:06 PM CDT 3 mL documented in this encounter Active and Recently Administered Medications Times are shown in CDT. Scheduled Medication Order 09/09/2024 09/10/2024 09/11/2024 acetaminophen (TYLENOL) tablet 1,000 mg (COMPLETED) 1,000 mg, Oral, ONE TIME ONLY, 1 dose, On 09/10/24 at 2130, Stat 2134 (Given - Provider: Jyoti Hamm RN) albuterol (PROVENTIL,VENTOLIN) inhalation solution 5 mg (COMPLETED) 5 mg, Inhalation, ONE TIME ONLY RESPIRATORY, 1 dose, On 09/10/24 at 2130, Routine 2134 (Given - Provider: Mg López RCP) albuterol (PROVENTIL,VENTOLIN) inhalation solution 5 mg (COMPLETED) 5 mg, Inhalation, ONE TIME ONLY RESPIRATORY, 1 dose, On 09/10/24 at 2315, Routine 2306 (Given - Provider: Mg López RCP) insulin regular (HumuLIN R,NovoLIN R) injection 5 Units (COMPLETED) 5 Units, IV, ONE TIME ONLY, 1 dose, On 09/10/24 at 2245, Stat 2254 (Given - Provider: Jyoti Hamm RN) ipratropium-albuteroL (DUONEB) 0.5 mg-3 mg(2.5 mg base)/3 mL inhalation solution 3 mL (COMPLETED) 3 mL, Inhalation, ONE TIME ONLY RESPIRATORY, 1 dose, On 09/10/24 at 2130, Routine 2134 (Given - Provider: Mg López RCP) lactated ringers bolus solution 500 mL (COMPLETED) 500 mL, IV, ONE TIME ONLY, 1 dose, On 09/10/24 at 2230, at 999 mL/hr, Administer over 30 Minutes, Stat 2255 (New Bag - Provider: Belinda Hamm RN)2325 (Stopped - Provider: Belinda Hamm RN) methocarbamoL (ROBAXIN) tablet 750 mg (COMPLETED) 750 mg, Oral, ONE TIME ONLY, 1 dose, On 09/10/24 at 2130, Stat 2134 (Given - Provider: Jyoti Hamm RN) morphine (MS IR) tablet 15 mg (COMPLETED) 15 mg, Oral, ONE TIME ONLY, 1 dose, On 09/10/24 at 2300, Stat 2338 (Given - Provider: Jyoti Hamm, RN) No Frequency Medication Order 09/09/2024 09/10/2024 09/11/2024 SODIUM CHLORIDE 0.9 % FOR NEBULIZATION (CABINET OVERRIDE) (COMPLETED) 1 dose, Starting on 09/10/24 at 2305, Until 09/10/24 at 2306, Evelyn López: cabinet override 2306 (Given - Provider: Mg López RCP) documented in this encounter Additional Health Concerns Active Problems Noted Date Diagnosed Date Heart Failure Problem 05/12/2024 documented as of this encounter Care Teams Leak Detector Relationship Specialty Start Date End Date Delta Wade MD [address] [place] [id number] PCP - General Family Practice 03/25/24 documented as of this encounter
--- OUTSIDE RECORDS SUMMARY | 2024-09-12 21:13 | XMS_ITS | Encounter Summary ---
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 Systems Cardiovascular: negative. Gastrointestinal: negative. Genitourinary:negative. Respiratory: negative. Objective: Patient Vitals for the past 8 hrs: BP Temp Temp src Pulse Resp SpO2 09/13/24 1109 -- -- -- -- 24 -- 09/13/24 0817 128/88 97.2 ??F (36.2 ??C) Temporal (!) 103 20 91 % 09/13/24 0500 131/67 97.5 ??F (36.4 ??C) Temporal (!) 109 20 94 % Lungs: normal respiratory effort; currently on Bipap Heart: regular rate and rhythm Abdomen: Soft, non-tender. No masses, no organomegaly. Pt sleepy Bipap donned DAWKINS Does not appear distressed Results for orders placed during the hospital encounter of 08/29/24 CT ABDOMEN PELVIS W CONTRAST Narrative Exam: CT ABDOMEN PELVIS W CONTRAST Date/Time of Exam: 08/29/2024 11:52 PM Reason For Exam: Abdominal pain, acute, nonlocalized. Diagnosis: See Reason for Exam. Technique: CT of the abdomen was performed following the administration of intravenous contrast. Contrast: 100 mL Isovue-300 Findings: Comparison from 08/14/2024. There is persistent mild bilateral dependent atelectasis and fibrotic change. Cardiomegaly is present. There are coronary artery stents and coronary artery calcifications. The liver is heterogeneous in appearance. No focal liver abnormality is noted. The spleen is absent. No abnormality of the pancreas, gallbladder or bile ducts is noted. No abnormality of the adrenal glands is noted. There is persistent mild right hydronephrosis extending to the right UPJ with no visible obstructing calculus. The right ureter is not dilated. The left kidney is remarkable only for mild cortical scarring. There are no abnormally dilated loops of bowel. There is no evidence for appendicitis. No pericolonic inflammatory change is noted. No free air or free fluid is noted. There is an air-fluid level in the otherwise unremarkable urinary bladder. The uterus is absent. No pathologic adenopathy is noted. No significant abnormality of the aortoiliac arteries as noted. No significant abnormality of the bony pelvis is noted. An unchanged mild compression deformity of L1 is again noted. Slight anterolisthesis of L4 on L5 is again identified. Multilevel degenerative change is present. Impression : 1. Air-fluid level in the otherwise unremarkable urinary bladder of uncertain etiology.. 2. 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 3. Unchanged mild compression deformity of L1. 4. Hepatic steatosis 5. Prior splenectomy. Prior hysterectomy. 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 -Follow up with Jerson Salas as scheduled on September 22, 2024 Cosigned by Andrade Felton MD at 09/13/2024 1:17 PM CDT documented in this encounter ED Notes * Letty Milner LPN - 09/12/2024 11:27 PM CDT Report given to MARICARMEN Gallardo on 4B * Ltety Milner LPN - 09/12/2024 10:20 PM CDT Medication provided to pt at this time, refer to MAR. * Letty Milner LPN - 09/12/2024 9:35 PM CDT Pt presents with c/o SOB. Reports she went to use the restroom and get up when it began. Pt has a hx of COPD, heart failure, and respiratory failure. 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 Pts breathing is labored upon arrival, O2 saturation 93%. [facility] * Robbie Yen, - 09/12/2024 9:09 PM CDTAssociated Order(s): Critical Care HISTORY OF PRESENT ILLNESS History of Present Illness This is a patient with a history of COPD, heart failure, respiratory failure, and myocardial infarction presenting with difficulty breathing, back and shoulder pain, and abdominal pain. The patient arrived by car. The patient reports that the breathing difficulty began approximately 3 hours ago without any precipitating activities. The patient is on a regimen of 3 liters of oxygen. The patient reports no fevers, chills, sinus congestion, runny nose, sore throat, or new cough. The patient has not used any inhalers but has attempted 4 breathing treatments without relief. The patient also reports experiencing back and shoulder pain, which started after a fall approximately 3 months ago that resulted in a broken elbow. Additionally, the patient reports generalized abdominal pain that started a year ago and is exacerbated by palpation. The patient reports no urinary symptoms. The patient has a history of smoking but quit 14 months ago. SOCIAL HISTORY The patient was a smoker but quit 14 months ago. PAST MEDICAL HISTORY REVIEWED MEDICAL: Patient has a past medical history of Anxiety, Arthritis, Arthropathy, unspecified, site unspecified, Atrial flutter ([facility]), Bipolar affective disorder ([facility] Breast cancer ([facility]) (2001), Breast mass (08/22/2010), Cervical neck pain with evidence of disc disease, Chronic hepatic failure ([facility]), Congenital absence of uterus, Congenital absence of vagina, Congenital anomaly, Congestive heart failure ([facility]), Coronary artery disease, Deep vein thrombosis (DVT) ([facility]) (2023), Depression (08/22/2010), Diabetes mellitus (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/HCC), Paroxysmal A-fib (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) (2019). SURGICAL: Patient has a past surgical history that includes bladder suspension; spinal surgery (2004); Colonoscopy; surgical other (1984); pr colonoscopy flx dx w/collj spec when pfrmd (01/23/2011); pr colonoscopy flx dx w/collj spec when pfrmd (09/19/2010); appendectomy; tonsillectomy; pr rpr rptd spleen splenorrhaphy w/wo prtl splenect (N/A, 05/30/2023); pr expl penetrating wound spx abdomen/flank/back (N/A, 05/30/2023); esophagogastroduodenoscopy (N/A, 03/19/2024); pr cath plmt l hrt & arts w/njx & angio img s&i (N/A, 03/21/2024); pr cath plmt l hrt & arts w/njx & angio img s&i(N/A, 03/21/2024); mastectomy (Right); pr vitrectomy mchnl pars plna focal endolaser pc (Right, 03/30/2024); pr inj substitute pars plana/limbl w/wo aspir spx (Right, 03/30/2024); ptca; vagina reconstruction surgery (1984); and pr correction hammertoe (Left, 07/20/2024). ALLERGIES Ketorolac tromethamine, Prochlorperazine, Propoxyphene, Tramadol, Codeine, and Propoxyphene n-acetaminophen PHYSICAL EXAM INITIAL VS BP: (not recorded), Heart Rate: 95 bpm (09/12/242118), Resp: 26 (09/12/242118), Pulse: 95 (09/12/242129), Temp: 98.1 ??F (36.7 ??C) (09/12/242129), Temp src: Oral (09/12/242129), SpO2: 95 % (09/12/242118), Height: (not recorded), Weight: (not recorded), BMI (Calculated): (not recorded) No LMP recorded. 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 Pulse 95, temperature 98.1 ??F (36.7 ??C), temperature source Oral, resp. rate 24, SpO2 94%, not currently . Physical Exam Vitals and nursing note reviewed. Constitutional: General: She is not in acute distress. Appearance: She is obese. She is not diaphoretic. HENT: Head: Normocephalic and atraumatic. Eyes: Pupils: Pupils are equal, round, and reactive to light. Cardiovascular: Rate and Rhythm: Normal rate and regular rhythm. Pulmonary: Effort: Tachypnea and respiratory distress present. Abdominal: General: There is no distension. Palpations: Abdomen is soft. Tenderness: There is abdominal tenderness (diffuse tenderness no peritoneal signs or pulsatile mass). Comments: (Abdominal include GI system Exam as noted) Musculoskeletal: General: No tenderness. Normal range of motion. Cervical back: Normal range of motion and neck supple. Right lower leg: No edema. Left lower leg: No edema. Comments: Subjective thoracic back pain Skin: General: Skin is warm. Coloration: Skin is not jaundiced or pale. Neurological: General: No focal deficit present. Mental Status: She is alert and oriented to person, place, and time. Psychiatric: Mood and Affect: Mood is anxious. Behavior: Behavior normal. Physical Exam Respiratory: Patient exhibits difficulty breathing. Gastrointestinal: Abdominal tenderness noted upon palpation. DIAGNOSTICS LAB: CBC WITH DIFFERENTIAL - Abnormal Result Value WBC 8.0 NRBCS 8 (*) RBC 3.35 (*) HEMOGLOBIN 10.8 (*) HEMATOCRIT 33.9 (*) MCV 101.2 MCH 32.2 MCHC 31.9 PLATELETS 180 MPV 10.8 RDW 19.2 (*) RDW-STDEV 71.1 (*) NEUTROPHILS 54 LYMPHOCYTES 28 MONOCYTES 12 (*) EOSINOPHILS 1 BASOPHILS 1 IMMATURE GRANULOCYTES 4 (*) NEUTROPHIL ABSOLUTE 4.35 LYMPHOCYTE ABSOLUTE 2.24 MONOCYTE ABSOLUTE 0.93 (*) EOSINOPHIL ABSOLUTE 0.11 BASOPHILS ABSOLUTE 0.05 IMMATURE GRANULOCYTES ABSOLUTE 0.35 (*) SMEAR REVIEWED: NA - Not Applicable TROPONIN BASELINE, 5TH GEN - Abnormal TROPONIN T, BASELINE 5TH GEN 28 (*) BRAIN NATRIURETIC PEPTIDE, BNP OR PROBNP - Abnormal PROBNP, N TERMINAL 623 (*) RESPIRATORY PATHOGEN PCR PANEL COMPREHENSIVE METABOLIC PANEL TROPONIN 2 HR, 5TH GEN BLOOD GAS ARTERIAL EXTRA TUBE EXTRA TUBE (BLUE) RADIOLOGY: XR CHEST PA OR AP 1 VW ED Interpretation Cardiomegaly with non-specific interstitial disease. EKG: My Interpretation: First ER EKG NSR rate 95, axis normal, intervals normal, no acute ST changes compared to 6.21.25 PROCEDURES Critical Care Performed by: Robbie Yen DO Authorized by: Robbie Yen DO Critical care provider statement: Critical care time (minutes): 45 Critical care was necessary to treat or prevent imminent or life-threatening deterioration of the following conditions: Respiratory failure Critical care was time spent personally by me on the following activities: Ordering and performing treatments and interventions, ordering and review of laboratory studies, ordering and review of radiographic studies, pulse oximetry, re-evaluation of patient's condition, review of old charts, development of treatment plan with patient or surrogate, discussions with primary provider, evaluation of patient's response to treatment, examination of patient and obtaining history from patient or surrogate MEDICAL DECISION MAKING AND PLAN OF CARE Assessment & Plan Initial Assessment: Reports breathing problems starting 3 hours ago, normally on 3 liters of oxygen. History of heart failure, respiratory failure, previous heart attacks. Severe back and shoulder pain from a fall 3 months ago, resulting in a broken elbow. Abdominal pain starting a year ago, hurts upon palpation. Differential Diagnosis: - COPD exacerbation: History of COPD. Breathing problems started 3 hours ago. Administer breathing treatment. - Heart failure exacerbation: History of heart failure. No new cough, fever, or chills. Monitor respiratory status. - Musculoskeletal pain: Severe back and shoulder pain from fall 3 months ago. Pain management. - Abdominal pain: Chronic abdominal pain for a year. Hurts upon palpation. Evaluate further. ED Course as of 09/12/242308 Mon Sep 12, 2024 2241 Patient reevaluated, feels better but still having pain and is desiring observation admission.[MG] [address] Baig for admission [MG] 230 Returned call and will admit for obs [MG] ED Course User Index [MG] Robbie Yen, DO Medical Decision Making 59-year-old female presents to the ER for evaluation constellation of complaints as scribed above. Patient states she has a history of both COPD and CHF. Had acute onset of shortness of breath 3 hours ago. Also developed acute on chronic back pain and abdominal pain subsequent to exacerbation of symptoms. She denies any new trauma. She denies any fevers or chills. Has persistent cough. Patient tachypneic but satting well on her 3 L nasal cannula. No wheezing on auscultation. She has not tried any rescue medications prior to arrival. Review of recent documentation demonstrates 4 emergency department visits this month for similar complaints. Was seen 2 days ago for similar. Based on the patient's presenting complaints, the following emergency medical conditions were amongthose considered in the differential today: Pneumonia, pulmonary embolus, pneumothorax, pulmonary edema/CHF, pericarditis, pleurisy, COPD with acute exacerbation. Patient was stable during observation in the ER. She was satting well on her baseline supplemental oxygen but she had significant air hunger. Patient was seen and evaluated and treated by respiratorytherapy. She was treated for pain. Labs demonstrate chronic findings. Chronic anemia without interval change. CMP pending at time of disposition, however, CMP from 2 days ago was reviewed. Persistentelevation troponin BNP without interval change. Chest x-ray no focal infiltrate. EKG without interval change. I discussed admission with the hospitalist service who is familiar with and knows the patient well. He agrees with assessment and plan and will admit for further observation. I discussed res ults as well as the disposition and plan with patient and family and they agree. Patient admitted in improved condition Amount and/or Complexity of Data Reviewed Labs: ordered. Radiology: ordered and independent interpretation performed. ECG/medicine tests: ordered. Risk Prescription drug management. Decision regarding hospitalization. Clinical Scoring & Consults Medications Administered During the ED Stay from 09/12/20242108 to 09/12/20242308 Date/Time Order Dose Route Action 09/12/20242118 CDT ipratropium-albuteroL (DUONEB) 0.5 mg-3 mg(2.5 mg base)/3 mL inhalation solution 3 mL 3 mL Inhalation Given 09/12/20242217 CDT HYDROmorphone (PF) (DILAUDID) injection 0.3 mg 0.3 mg IV Given . New Prescriptions for this Encounter LAST VS BP: (not recorded), Heart Rate: 95 bpm (09/12/242129), Resp: 24 (09/12/242129), Pulse: 95 (09/12/242129), Temp: 98.1 ??F (36.7 ??C) (09/12/242129), Temp src: Oral (09/12/242129), SpO2: 94 % (09/12/242129) CLINICAL IMPRESSION Diagnoses Diagnosis Comment Added By Time Added Bipolar affective disorder, currently depressed, moderate ([facility]) [F31.32] Robbie Yen DO 09/12/2024 11:06 PM HEENA (generalized anxiety disorder) [F41.1] Robbie Yen DO 09/12/2024 11:06 PM Protein-calorie malnutrition, moderate [E44.0] Robbie Yen DO 09/12/2024 11:06 PM H/O mastectomy, right [Z90.11] Robbie Yen DO 09/12/2024 11:06 PM Chronic combined systolic and diastolic heart failure ([facility]/HCC) [I50.42] Robbie Yen DO 09/12/2024 11:06 PM COPD exacerbation ([facility]) [J44.1] Robbie Yen DO 09/12/2024 11:06 PM Opioid dependence with opioid-induced disorder ([facility]) [F11.29] Robbie Yen DO 09/12/2024 11:06 PM DISPOSITION, EDUCATION AND MEDICATION RECONCILIATION Medications reconciled. See after visit summary for patient education on discharged patients. ED Disposition ED Disposition Admit Condition Stable User Robbie Yen DO Date/Time ThuSep 12, 2024 11:06 PM Comment -- Diagnoses Diagnosis Comment Added By Time Added Bipolar affective disorder, currently depressed, moderate (CMS/HCC) [F31.32] Robbie Yen DO 09/12/2024 11:06 PM HEENA (generalized anxiety disorder) [F41.1] Robbie Yen DO 09/12/2024 11:06 PM Protein-calorie malnutrition, moderate [E44.0] Robbie Yen DO 09/12/2024 11:06 PM H/O mastectomy, right [Z90.11] Robbie Yen DO 09/12/2024 11:06 PM Chronic combined systolic and diastolic heart failure (CMS/HCC) [I50.42] Robbie Yen DO 09/12/2024 11:06 PM COPD exacerbation (CMS/HCC) [J44.1] Robbie Yen DO 09/12/2024 11:06 PM Opioid dependence with opioid-induced disorder (CMS/HCC) [F11.29] Robbie Yen DO 09/12/2024 11:06 PM documented in this encounter Miscellaneous Notes * Care Plan - Melany Morelos GN - 09/15/2024 12:23 PM CDT Shift Summary Vitals were stable with SpO2 at 98% and BP at 151/81. Patient refused several medications, including Incruse Ellipta and Breo Ellipta. PredniSONE was administered to address respiratory needs. Comprehensive Metabolic Panel showed some abnormal values, including high glucose and low protein levels. Overall, the patient maintained stable respiratory and genitourinary function throughout the shift. Maintain skin integrity and/or promote wound healing by discharge: Skin was bathed with Chlorhexidine Gluconate, and no limitations in mobility were noted, supporting skin integrity maintenance. Achieve optimal respiratory function by discharge and/or maintain baseline function: Respiratory observations were within defined limits, and SpO2 levels remained stable at 98%. Achieve optimal gastrointestinal function by discharge or maintain baseline function: Incontinent of a large amount of stool was noted, but gastrointestinal observations were within defined limits. Achieve optimal genitourinary and renal function by discharge or maintain baseline function: Urine was clear and yellow, with a void output of 800 mL, indicating stable genitourinary function. Achieve optimal nutrition and fluid status to meet metabolic needs throughout hospitalization: Diettolerance was excellent with 90% intake at breakfast, and oral intake was 300 mL. * Care Plan - Tawanna Khan LPN - 09/15/2024 5:08 AM CDT Shift Summary High glucose level was noted and addressed with caregiver notification. Sodium chloride 0.9% and doxycycline (VIBRAMYCIN) were administered during the shift. Pain management was effective with a decrease in pain levels after administering oxyCODONE-acetaminophen. LORazepam was administered for anxiety management. Overall, the patient remained stable with no signs of infection and maintained safety without falls. Verbalizes/displays acceptable comfort level or baseline comfort level: Pain levels decreased from moderate to mild with interventions, including administration of oxyCODONE-acetaminophen for moderate pain. Infection Risk/Actual: Infection prevention, control, or resolution by discharge: No signs of infection were noted throughout the shift, and doxycycline (VIBRAMYCIN) was administered. Safety/Fall: Absence of fall, injury, harm during hospitalization: Safety checks were completed, and the fall risk was assessed as high, with agreement on the risk level. Identify discharge needs upon admission and through discharge: Plan of care was reviewed with the patient, focusing on the goal to go home. Maintain skin integrity and/or promote wound healing by discharge: Skin condition remained within defined limits except for minor issues, and hygiene care was refused. AI Pioneering generation of preceding information. Patient stable and responding to therapy. Progressing with goals, and is on continuous IV fluids. * Care Plan - Stacy Jensen RN - 09/15/2024 12:22 AM CDT Gianfranco 's peripheral IV will remain free from infection. * Care Plan - Meg Felton LMSW - 09/14/2024 9:10 AM CDT Care Management Initial Assessment Initial Discharge Planning Assessment completed. Discussed Care Management's role and Discharge planning. Does the patient have family and/or a caregiver that is willing, able and available to assist if needed? Yes - Name/Relation:Marcin, spouse Comments: Patient was recently discharged from this hospital to home. Patient was admitted for COPD. Patient will return home with no needs. Patient Discharge Planning Goal: To feel better Patient will potentially discharge to a SNF/NH? No Care Management visited with: otherChart review via other Chart review . Prior to admission, patient resides at: own home. Prior to admission, living arrangements: significant other. Prior to admission, patient's functional level:independent; uses N/A for mobility; needs assistancewith iADLs: N/A Community Ambulator: yes Prior to admission, the patient has the following DME? N/A Services in the home/community: none Serviced by Receives hemodialysis? No Emergency contact(s): Extended Emergency Contact Information Primary Emergency Contact: marcin dover Mobile Relation: Friend Secondary Emergency Contact: christy dover Mobile Relation: Friend Prescription coverage: yes Preferred Pharmacy verified: [id number] - [place], [place] - [address] Insurance coverage verified: Payor: MEDICAID / Plan: MEDICAID [place] / Product Type: Medicaid / Secondary Insurance:N/A Medicaid Status: no spend down Has VA Benefits: no Employment Status: disabled DOES receive Disability Income. PCP verified as: Delta Wade MD Patient has had a stay at an acute care hospital in the last 30 days. Recent Falls?: Last Known Fall: Within the last month Plan for transportation at discharge: Family Care Management contact information provided. Care Management will continue to follow and assist asneeded. * Care Plan - Tawanna Khan LPN - 09/14/2024 4:58 AM CDT Shift Summary Pain management was effective, reducing pain levels from moderate to mild with medication interventions. Blood gas results indicated respiratory issues with high PCO2 and low PO2 levels. The patient refused Lidocaine, impacting pain management options. Imaging revealed spinal deformities, which may influence mobility and discharge planning. Overall, the patient maintained stable vital signs and safety measures were upheld, with no falls or injuries reported. Verbalizes/displays acceptable comfort level or baseline comfort level: Pain levels decreased from moderate to mild during activity and rest, following administration of multiple medication modalities, including oxyCODONE- acetaminophen in [facility] and HYDROmorphone (PF). Infection Risk/Actual: Infection prevention, control, or resolution by discharge: Suspected infection levels remained stable throughout the shift, with no indication of escalation. Safety/Fall: Absence of fall, injury, harm during hospitalization: Safety checks were consistently completed, and the fall risk designation remained high, with agreement from the nurse's review. Identify discharge needs upon admission and through discharge: Plan of care was reviewed multiple times with the patient and healthcare team, ensuring understanding and preparation for discharge. Maintain skin integrity and/or promote wound healing by discharge: Skin remained within defined limits except for occasional moisture, and hygiene care was initially refused but later addressed with a turn sheet. AI Pioneering generation of preceding information. Patient stable and continues therapy on unit. * Care Plan - Zain Evans RCP - 09/14/2024 12:10 AM CDT NOC CPAP Note Is this the patient's device? No Adult Vent Non-Invasive: Adult Vent Non-Invasive: Nocturnal (09/13/241917) Device Asset ID# (If using facility equipment): Vent ID: [id number] (09/13/241917) CPAP Daily Charge: *CPAP Daily Charge: Yes (09/14/248) Device Name: Vent Type: ResMed VPAP II ST-A (09/13/241917) Device Settings: Delivery Mode: BiPAP S/T (09/13/241917) IPAP (cm H2O): 16 (09/13/241917) EPAP (cm H2O): 8 (09/13/241917) Interface: Delivery Method: Full Face Mask (09/13/241917) Mask/Prong Size:Mask/Prong Size: M (09/13/241917) Oxygen Flow (if applicable): Oxygen Therapy Flow (L/min): 3 (09/13/241929) Is the patient wearing the device? No Zain Evans RCP * Care Plan - Zain Evans RCP - 09/13/2024 7:18 PM CDT NOC CPAP Note Is this the patient's device? No Adult Vent Non-Invasive: Adult Vent Non-Invasive: Nocturnal (09/13/241917) Device Asset ID# (If using facility equipment): Vent ID: [id number] (09/13/241917) CPAP Daily Charge: *CPAP Daily Charge: Yes (09/13/241917) Device Name: Vent Type: ResMed VPAP II ST-A (09/13/241917) Device Settings: Delivery Mode: BiPAP S/T (09/13/241917) IPAP (cm H2O): 16 (09/13/241917) EPAP (cm H2O): 8 (09/13/241917) Interface: Delivery Method: Full Face Mask (09/13/241917) Mask/Prong Size:Mask/Prong Size: M (09/13/241917) Oxygen Flow (if applicable): Oxygen Therapy Flow (L/min): 3 (09/13/241929) Is the patient wearing the device? No Zain Evans RCP * Care Plan - Bernarda Win RCP - 09/13/2024 3:13 AM CDT Images from the original note were not included. Respiratory Patient Care Assessment S- pt is a poor historian. Belkys Diaz is a 59 y.o. female admitted for No admission diagnoses are documented for this encounter. on 09/12/2024 9:13 PM. Social History Tobacco Use Smoking status: Former Average packs/day: 1 pack/day for 43.0 years (43.0 ttl pk-yrs) Types: Cigarettes Start date: 07/21/2022 Smokeless tobacco: Never Vaping Use Vaping status: Never Used Substance Use Topics Alcohol use: No Drug use: No Prior to Admission medications Medication Sig Start Date End Date Taking? Authorizing Provider predniSONE (DELTASONE) 20 mg tablet Take 1 Tablet (20 mg) by mouth 2 times daily with meals. 09/10/24 Don Causey, DO azithromycin (ZITHROMAX) 250 mg tablet Take 2 Tablets (500 mg) by mouth daily for 1 day, THEN 1 Tablet (250 mg) daily for 4 days. 09/10/24 09/15/24 Don Causey, DO ipratropium-albuteroL (DUONEB) 0.5 mg-3 mg(2.5 mg base)/3 mL Solution for Nebulization Take 3 mL byinhalation every 4 hours as needed for Shortness of Breath. 09/10/24 Don Causey, DO Nebulizer & Compressor For Neb Device every 4 hours as needed for Other (See Comment) (shortness of breath). 09/10/24 Don Causey, DO ipratropium-albuteroL (DUONEB) 0.5 mg-3 mg(2.5 mg base)/3 mL Solution for Nebulization Take 3 mL byinhalation every 6 hours as needed for Shortness of Breath. 08/26/24 09/25/24 Zeke Medellin MD ranolazine ER (RANEXA) 500 mg Extended Release 12 hour tablet Take 1 Tablet (500 mg) by mouth every12 hours. 08/27/24 10/26/24 Zeke Medellin MD budesonide 160 mcg-glycopyr 9 mcg-formot 4.8 mcg/actuation HFA inhaler Take 2 Puffs by inhalation 2times daily. 08/26/24 10/25/24 Zeke Medellin MD levalbuterol (XOPENEX) 1.25 mg/3 mL Solution for Nebulization Take 1.25 mg by inhalation every 6 hours as needed for Shortness of Breath or Wheezing. 07/25/24 Provider, Historical triamcinolone acetonide (KENALOG) 0.1 % Ointment Apply to affected area 2 times daily as needed forOther (See Comment) (rash). 08/16/24 Nayely Mena MD insulin lispro (HumaLOG,ADMELOG) 100 unit/mL pen syringe Inject 14 Units by subcutaneous injection 3 times daily with meals. 08/06/24 Kapil Deluna, DO Lantus Solostar U-100 Insulin 100 unit/mL (3 mL) solution for injection Inject 25 Units by subcutaneous injection daily at bedtime. 08/06/24 Kapil Deluna, DO oxygen home delivery Home Oxygen Concentrator yes at 3 L/M Rest, 3 L/M Activity, 3 L/M Sleep, Delivery Device: Nasal Cannula Portability: yes, 3 L/M Rest, L/M Activity, May provide device best for patient needs(E system,home fill, conserving device) Length of Need: 99 months 08/06/24 Kapil Deluna, DO oxyCODONE-acetaminophen (PERCOCET) 5-325 mg tablet Take 1 Tablet by mouth every 6 hours as needed. Provider, Historical Ventolin HFA 90 mcg/actuation inhaler Take 2 Puffs by inhalation every 6 hours as needed. Provider,Historical isosorbide mononitrate (IMDUR) 30 mg Extended Release 24 hour tablet TAKE 1 TABLET BY MOUTH EVERY DAY 07/05/24 Ashley Virgen NP amLODIPine (NORVASC) 2.5 mg tablet Take 2.5 mg by mouth late in the day. 03/30/23 Provider, Historical atorvastatin (LIPITOR) 40 mg tablet Take 40 mg by mouth daily at bedtime. 05/13/23 Provider, Historical FLUoxetine (PROzac) 40 mg capsule Take 40 mg by mouth daily at bedtime. 03/30/23 Provider, Historical potassium CHLORIDE (KLOR-CON) 10 mEq Extended Release tablet Take 1 Tablet by mouth daily. 05/09/24 Provider, Historical tiZANidine (ZANAFLEX) 2 mg Tablet Take 2 mg by mouth every 8 hours as needed. 05/13/23 Provider, Historical nitroglycerin (NITROSTAT) 0.4 mg Tablet, Sublingual Place 0.4 mg under tongue. 05/19/24 Provider, Historical OLANZapine (ZyPREXA) 10 mg tablet Take 10 mg by mouth daily at bedtime. 04/12/24 Provider, Historical aspirin (CARTER CHEWABLE) 81 mg Tablet, Chewable Take 81 mg by mouth daily. Provider, Historical LORazepam (ATIVAN) 0.5 mg tablet Take 1 Tablet (0.5 mg) by mouth every 8 hours as needed for Anxiety. 04/11/24 Heike Camarillo MD warfarin (COUMADIN) 10 mg tablet Take 1 Tablet by mouth daily. 03/22/24 Provider, Historical fluorouraciL (EFUDEX) 5 % Cream APPLY TO AFFCETED AREA TWICE A DAY FOR 4 WEEKS 02/01/24 Provider, Historical sertraline (ZOLOFT) 50 mg tablet Take 1 Tablet by mouth daily. 01/03/24 Provider, Historical rOPINIRole (REQUIP) 0.5 mg tablet Take 0.5 mg by mouth daily at bedtime. 12/14/23 Provider, Historical promethazine-dextromethorphan (PHENERGAN-DM) 6.25-15 mg/5 mL syrup Take 10 mL by mouth every 4 hours as needed for Cough. 12/02/23 Provider, Historical buPROPion HCL (WELLBUTRIN XL) 300 mg Extended Release 24 hour tablet Take 1 Tablet by mouth daily. 01/19/24 Provider, Historical portable oxygen Face to Face completed within 30 days: yes Length of Need: 99 months By: Nasal Cannula Continuously at 3 L/min. 08/27/23 Ryann Burk MD TechLITE Pen Needle 29 gauge x 1/2 Needle USE directed with Josie. 12/29/22 Provider, Historical naloxone (NARCAN) 4 mg/spray [place], Non-Aerosol EMERGENCY USE ONLY: Administer 1 spray (4 mg) in one nostril one time. May repeat in alternating nostrils every 2-3 min until responsive or EMS arrives. 01/06/23 Ryann Burk MD blood sugar diagnostic Strip Use to test blood glucose up to QID PRN symptoms. 12/17/22 Ryann Burk MD OneTouch Delica Plus Lancet 30 gauge USE TO test fasting blood glucose DAILY 11/04/22 Provider, Historical Blood-Glucose Meter Kit Use to test blood glucose up to TID PRN symptoms. 12/02/22 Ryann Burk MD Lab Results Component Value Date/Time WBC 8.0 09/12/2024 09:32 PM HGB 10.8 (L) 09/12/2024 09:32 PM HGBPOC 11.3 (L) 09/10/2024 10:23 PM HCT 33.9 (L) 09/12/2024 09:32 PM HCTPOC 34 (L) 09/10/2024 10:23 PM PLT 180 09/12/2024 09:32 PM MCV 101.2 09/12/2024 09:32 PM Lab Results Component Value Date/Time NA 139 09/12/2024 09:32 PM K 4.2 09/12/2024 09:32 PM CL 103 09/12/2024 09:32 PM CO2 22 09/12/2024 09:32 PM CA 9.4 09/12/2024 09:32 PM BUN 24 (H) 09/12/2024 09:32 PM CREAT 0.70 09/12/2024 09:32 PM GLUCOSE 275 (H) 09/12/2024 09:32 PM ANIONGAP 14 09/12/2024 09:32 PM BCRATIO SEE NOTE: 07/16/2023 10:52 AM Lab Results Component Value Date/Time TROPONIN 18 06/23/2023 11:20 AM Breath sounds reveal diminished throughout . Last chest x-ray reveals no current xrays Latest spirometry reveals: Unable to perform at this time A- prevent potential bronchospam. P- Patient educated on purpose and technique of therapy. Based on above, patient will be placed on Q6 PRN Duoneb and MDI Albuterol . Will reassess patient status as needed . Bernarda Win RCP * Gen AI ED Handoff - GENERATIVE AI HANDOFF NOTE - 09/12/2024 11:34 PM CDT SITUATION: Patient ( ) is a 59-year-old female who has been in the ER for 2 hours. She came to the ER due to respiratory distress. The patient's most recent care team on record included: Letty Milner. BACKGROUND: This patient has allergies to Ketorolac Tromethamine, Prochlorperazine, Propoxyphene, Tramadol, Codeine, Propoxyphene N-acetaminophen. ASSESSMENT: Patient's most recent vitals recorded in flowsheets were as follows: BP: / T: 98.1 F RR: 26 SPO2: 95% HR: 95 WT: LBS BMI: not available Most recent Glucose Value: 275. Completed: 2024-09-12 23:12. Lines most recently placed include: angiocath at 2024-09-12 21:33. Last recorded oxygen source was nasal cannula. The patient has a history of COPD, heart failure, respiratory failure, myocardial infarction, and diabetes mellitus. She presents with difficulty breathing, back and shoulder pain from a fall 3 months ago, and chronic abdominal pain. The patient exhibits tachypnea and respiratory distress, and has chronic anemia. She has a history of opioid dependence and protein-calorie malnutrition. The patient is obese and has a history of smoking, which she quit 14 months ago. RECOMMENDATION: Admit the patient for observation due to respiratory distress and exacerbation of COPD and heart failure. Continue supplemental oxygen therapy at 3 liters. Administer breathing treatments as needed. Monitor respiratory status closely. Pain management for back and shoulder pain. Evaluate abdominal pain further. Consider dietary consultation for protein-calorie malnutrition. Ensure medication reconciliation and management of chronic conditions including diabetes and heart failure. Consult with hospitalist service familiar with the patient for ongoing care. *This summary was created by [employer]. The responses are meant to enhance, not replace normal workflow. Please contact the ED nurse for any additional information.* documented in this encounter Plan of Treatment Upcoming Encounters Date Type Department Care Team (Late st Contact Info) Description 09/22/2024 10:00 AM CDT Office Visit [facility] Neurosurgery [address] [place] [address] Jerson Salas PA [address] [place] [address] 10/06/2024 4:00 PM CDT Office Visit [facility] Pulmonology [address] [place] [phone] Cristian Metcalf, [facility] [address] [place] [phone] Scheduled Orders Name Type Priority Associated Diagnoses Orde r Schedule MRI LUMBAR W WO CONTRAST Imaging Routine Closed fracture of first lumbar vertebra, unspecified fracture morphology, initial encounter ([facility]) Expected: 09/22/2024, Expires: 09/15/2025 IR SPINAL INTERVENTION Imaging Routine Closed fracture of first lumbar vertebra, unspecified fracture morphology, initial encounter ([facility]) Expected: 09/22/2024, Expires: 09/15/2025 documented as of this encounter Goals Goal Patient Goal Type Associated Problems Recent Progress Patient-Stated? Author Heart Failure Goal Care Plan Heart Failure Problem No Latonya Anguiano LPN documented as of this encounter Procedures Procedure Name Priority Date/Time Associated Diagnosis Comments TELEMETRY REPORT 09/16/2024 3:14 AM CDT LACTIC ACID Stat 09/15/2024 8:00 AM CDT PROTIME-INR Routine 09/15/2024 8:00 AM CDT COMPREHENSIVE METABOLIC PANEL Routine 09/15/2024 8:00 AM CDT POC GLUCOSE Routine 09/15/2024 7:26 AM CDT POC GLUCOSE Routine 09/14/2024 8:55 PM CDT LACTIC ACID Stat 09/14/2024 5:41 PM CDT POC GLUCOSE Routine 09/14/2024 4:29 PM CDT CBC WITH DIFFERENTIAL Routine 09/14/2024 12:08 PM CDT COMPREHENSIVE METABOLIC PANEL Routine 09/14/2024 12:08 PM CDT POC GLUCOSE Routine 09/14/2024 11:25 AM CDT POC GLUCOSE Routine 09/14/2024 7:43 AM CDT BLOOD GAS ARTERIAL Routine 09/13/2024 8: 22 PM CDT XR THORACOLUMBAR SPINE 2 VW Routine 09/13/2024 8:00 PM CDT POC GLUCOSE Routine 09/13/2024 7:35 PM CDT POC GLUCOSE Routine 09/13/2024 5:19 PM CDT POC LACTIC ACID Routine 09/13/2024 2:52 PM CDT BLOOD GAS ARTERIAL Routine 09/13/2024 2: 52 PM CDT BLOOD CULTURE Routine 09/13/2024 2:15 PM CDT BLOOD CULTURE Routine 09/13/2024 2:15 PM CDT US ABDOMEN LIMITED Stat 09/13/2024 1: 27 PM CDT EXTRA TUBE (URINE [place]) Routine 09/13/2024 1:12 PM CDT URINALYSIS W/REFLEX MICROSCOPIC Routine 09/13/2024 1:12 PM CDT URINE CULTURE Routine 09/13/2024 1:12 PM CDT BLOOD CULTURE Routine 09/13/2024 12:55 PM CDT LACTIC ACID Stat 09/13/2024 12:55 PM CDT BLOOD CULTURE Routine 09/13/2024 12:55 PM CDT POC GLUCOSE Routine 09/13/2024 12:23 PM CDT BLOOD GAS VENOUS Timed Study 09/13/2024 11:4 7 AM CDT TROPONIN 6 HR, 5TH GEN Timed Study 09/13/2024 9:16 AM CDT CBC WITH DIFFERENTIAL Routine 09/13/2024 9:16 AM CDT PROTIME-INR Routine 09/13/2024 9:16 AM CDT BLOOD GAS VENOUS Stat 09/13/2024 9:16 AM CDT BASIC METABOLIC PANEL Routine 09/13/2024 9:16 AM CDT POC GLUCOSE Routine 09/13/2024 6:58 AM CDT COPD EDUCATION RT Routine 09/13/2024 12: 19 AM CDT RT ASSESS AND TREAT Routine 09/13/2024 1 2:19 AM CDT TROPONIN 2 HR, 5TH GEN Timed Study 09/12/2024 11:02 PM CDT RESPIRATORY PATHOGEN PCR PANEL Stat 09/12/2024 11:02 PM CDT XR CHEST PA OR AP 1 VW Stat 09/12/2024 10:18 PM CDT EXTRA TUBE (BLUE) Stat 09/12/2024 9:3 2 PM CDT EXTRA TUBE Stat 09/12/2024 9:32 PM CDT TROPONIN BASELINE, 5TH GEN Stat 09/12/2024 9:32 PM CDT CBC WITH DIFFERENTIAL Stat 09/12/2024 9:32 PM CDT BRAIN NATRIURETIC PEPTIDE, BNP OR PROBNP Stat 09/12/2024 9:32 PM CDT COMPREHENSIVE METABOLIC PANEL Stat 09/12/2024 9:32 PM CDT EKG 12-LEAD Stat 09/12/2024 9:23 PM CDT RT ASSESS AND TREAT Stat 09/12/2024 9 :19 PM CDT CRITICAL CARE Routine 09/12/2024 9:09 PM CDT documented in this encounter Results * TELEMETRY REPORT (09/16/2024 3:14 AM CDT) us Provider Scanning ECG ORDERABLES Final Result * (ABNORMAL) LACTIC ACID (09/15/2024 8:00 AM CDT) LACTIC ACID 2.2(H) <=2.0 mmol/L 09/15/2024 8:42 AM CDT [facility] Blood Venipuncture / Unknown 09/15/2024 8:00 AM CDT 09/15/2024 8:03 AM CDT Michael Tovar MD CHEMISTRY ORDERABLES Final Result Performing Organization Address City/State/[facility] Co de Phone Number [facility] CLIA # [id number] [address] [address] * (ABNORMAL) COMPREHENSIVE METABOLIC PANEL (09/15/2024 8:00 AM CDT) Pathologist [facility] SODIUM 138 136 - 145 mmol/L 09/15/2024 10:22 AM CDT [facility] POTASSIUM 4.4 3.5 - 5.1 mmol/L 09/15/2024 10:22 AM CDT [facility] CHLORIDE 101 98 - 107 mmol/L 09/15/2024 10:22 AM CDT [facility] CO2 20(L) 22 - 29 mmol/L 09/15/2024 10:22 AM CDT [facility] CALCIUM 8.9 8.6 - 10.0 mg/dL 09/15/2024 10:22 AM CDT [facility] BUN 18 6 - 20 mg/dL 09/15/2024 10:22 AM CDT [facility] CREATININE 0.51 0.51 - 0.95 mg/dL 09/15/2024 10:22 AM [facility] GLUCOSE 238(H) 74 - 99 mg/dL 09/15/2024 10:22 AM [facility] TOTAL PROTEIN 6.2(L) 6.4 - 8.3 g/dL 09/15/2024 10:22 AM [facility] ALBUMIN 3.4(L) 3.5 - 5.2 g/dL 09/15/2024 10:22 AM [facility] BILIRUBIN TOTAL 0.3 0.0 - 1.0 mg/dL 09/15/2024 10:22 AM [facility] ALKALINE PHOSPHATASE 102 35 - 104 U/L 09/15/2024 10:22 AM [facility] AST 17 10 - 35 U/L 09/15/2024 10:22 AM [facility] Comment:Hemolysis present. R esult may be falsely elevated. ALT 39(H) <=35 U/L 09/15/2024 10:22 AM [facility] GFR >60 >=60 mL/min/1.7 3 sq meter 09/15/2024 10:22 AM [facility] Comment:eGFR calculated with 2020 CKD-EPI equation. Vegetarian diet, extremely high or low muscle mass, and may affect results. Cystatin C with Glomerular Filtration Rate is a suitable alternative for these patients. ANION GAP 17 9 - 20 mmol/L 09/15/2024 10:22 AM [facility] Blood Venipuncture / Unknown 09/15/2024 8:00 AM CDT 09/15/2024 8:03 AM T us Michael Tovar MD CHEMISTRY ORDERABLES Final Result [facility] CLIA # [id number] [address] [place] [address] * PROTIME-INR (09/15/2024 8:00 AM CDT) Pathologist [facility] Department PROTIME 13.8 12.7 - 14.9 Seconds 09/15/2024 8:42 AM CDT [facility] INR 1.0 0.8 - 1.2 09/15/2024 8:42 AM CDT [facility] Blood Venipuncture / Unknown 09/15/2024 8:00 AM CDT 09/15/2024 8:03 AM CDT Narrative [facility] - 09/15/2024 8:42 AM CDT Expected Values for INR: DVT/PE Goal INR 2.5; range 2.0 - 3.0 Valve Replacement Tissue Goal INR 2.5; range 2.0 - 3.0 Valve Replacement Mechanical Goal INR 3.0; range 2.5 - 3.5 POST-SC Goal INR 2.5; range 2.0 - 3.0 or Goal INR 3.0; range 2.5 - 3.5 Atrial Fibrillation Goal INR 2.5; range 2.0 - 3.0 Ischemic Stroke Goal INR 2.5; range 2.0 - 3.0 Michael Tovar MD HEMATOLOGY ORDERABLES Final Result [facility] CLIA # [id number] [address] [place] [address] * (ABNORMAL) POC GLUCOSE (09/15/2024 7:26 AM CDT) [facility] GLUCOSE POC 202(H) 74 - 99 mg/dL 09/15/2024 7:26 AM CDT [facility] SPECIMEN SOURCE, GLUCOSE POC Capillary 09/15/2024 7:26 AM CDT [facility] Blood, whole 09/15/2024 7:26 AM CDT 09/15/2024 7:42 AM CDT us Michael Tovar MD POINT OF CARE TESTING Final Result [facility] CLIA # [id number] [facility] [address] * (ABNORMAL) POC GLUCOSE (09/14/2024 8:55 PM CDT) GLUCOSE POC 346(H) 74 - 99 mg/dL 09/14/2024 8:55 PM CDT [facility] SPECIMEN SOURCE, GLUCOSE POC Capillary 09/14/2024 8:55 PM CDT [facility] COMMENT, GLU POC Notified Caregiver 09/14/2024 8:55 PM CDT [facility] COMMENT 2, GLU POC Result Verified 09/14/2024 8:55 PM CDT [facility] Blood, whole 09/14/2024 8:55 PM CDT 09/14/2024 11:53 PM CDT us Michael Tovar MD POINT OF CARE TESTING Final Result Performing Organization Address [facility]/ZIP Co de Phone Number [facility] CLIA # [id number] [address] [id number] * (ABNORMAL) LACTIC ACID (09/14/2024 5:41 PM CDT) LACTIC ACID 4.7(HH) <=2.0 mmol/L 09/14/2024 6:38 PM CDT [facility] Blood Venipuncture / Unknown 09/14/2024 5:41 PM CDT 09/14/2024 5:47 PM CDT Michael Tovar MD CHEMISTRY ORDERABLES Final Result [facility] [employer] [facility] CLIA # [id number] [address] [address] * (ABNORMAL) POC GLUCOSE (09/14/2024 4:29 PM CDT) [facility] GLUCOSE POC 411(HH) 74 - 99 mg/dL 09/14/2024 4:29 PM CDT [facility] SPECIMEN SOURCE, GLUCOSE POC Capillary 09/14/2024 4:29 PM CDT [facility] Blood, whole 09/14/2024 4:29 PM CDT 09/14/2024 5:29 PM CDT Michael Tovar MD POINT OF CARE TESTING Final Result [facility] CLIA # [id number] [address] [place] [address] * (ABNORMAL) COMPREHENSIVE METABOLIC PANEL (09/14/2024 12:08 PM CDT) [facility] SODIUM 140 136 - 145 mmol/L 09/14/2024 12:51 PM CDT [facility] POTASSIUM 3.8 3.5 - 5.1 mmol/L 09/14/2024 12:51 PM CDT [facility] CHLORIDE 97(L) 98 - 107 mmol/L 09/14/2024 12:51 PM CDT [facility] CO2 29 22 - 29 mmol/L 09/14/2024 12:51 PM CDT [facility] CALCIUM 9.2 8.6 - 10.0 mg/dL 09/14/2024 12:51 PM CDT [facility] BUN 21(H) 6 - 20 mg/dL 09/14/2024 12:51 PM CDT [facility] CREATININE 0.65 0.51 - 0.95 mg/dL 09/14/2024 12:51 PM CDT [facility] GLUCOSE 349(H) 74 - 99 mg/dL 09/14/2024 12:51 PM CDT [facility] TOTAL PROTEIN 6.3(L) 6.4 - 8.3 g/dL 09/14/2024 12:51 PM CDT [facility] ALBUMIN 3.6 3.5 - 5.2 g/dL 09/14/2024 12:51 PM CDT [facility] BILIRUBIN TOTAL 0.3 0.0 - 1.0 mg/dL 09/14/2024 12:51 PM CDT [facility] ALKALINE PHOSPHATASE 103 35 - 104 U/L 09/14/2024 12:51 PM CDT [facility] AST 22 10 - 35 U/L 09/14/2024 12:51 PM CDT [facility] Comment:Hemolysis present. R esult may be falsely elevated. ALT 44(H) <=35 U/L 09/14/2024 12:51 PM T [facility] GFR >60 >=60 mL/min/1.7 3 sq meter 09/14/2024 12:51 PM T [facility] Comment:eGFR calculated with 2020 CKD-EPI equation. Vegetarian diet, extremely high or low muscle mass, and may affect results. Cystatin C with Glomerular Filtration Rate is a suitable alternative for these patients. ANION GAP 14 9 - 20 mmol/L 09/14/2024 12:51 PM CDT [facility] Blood Venipuncture / Unknown 09/14/2024 12:08 PM CDT 09/14/2024 12:13 PM CDT us Michael Tovar MD CHEMISTRY ORDERABLES Final Result [facility] CLIA # [id number] [address] [address] [place], [place] [id number] * (ABNORMAL) CBC WITH DIFFERENTIAL (09/14/2024 12:08 PM CDT) WBC 10.9(H) 4.8 - 10.8 K/uL 09/14/2024 12:24 PM [facility] NRBCS 5(H) <1 % 09/14/2024 12:24 PM [facility] RBC 3.47(L) 4.20 - 5.40 M/uL 09/14/2024 12:24 PM [facility] HEMOGLOBIN 10.8(L) 12.0 - 16.0 g/dL 09/14/2024 12:24 PM [facility] HEMATOCRIT 35.2(L) 36.0 - 46.0 % 09/14/2024 12:24 PM [facility] MCV 101.4 84.0 - 103.0 fL 09/14/2024 12:24 PM [facility] MCH 31.1 27.0 - 34.0 pg 09/14/2024 12:24 PM [facility] MCHC 30.7 30.0 - 35.0 g/dL 09/14/2024 12:24 PM [facility] PLATELETS 172 140 - 440 K/uL 09/14/2024 12:24 PM [facility] MPV 11.2 8.9 - 12.8 fL 09/14/2024 12:24 PM [facility] RDW 18.9(H) 11.0 - 14.5 % 09/14/2024 12:24 PM [facility] RDW-STDEV 69.1(H) 37.0 - 54.0 fL 09/14/2024 12:24 PM [facility] NEUTROPHILS 88(H) 42 - 75 % 09/14/2024 12:24 PM [facility] LYMPHOCYTES 7(L) 24 - 44 % 09/14/2024 12:24 PM [facility] MONOCYTES 4 2 - 10 % 09/14/2024 12:24 PM [facility] EOSINOPHILS 0 0 - 7 % 09/14/2024 12:24 PM [facility] BASOPHILS 0 0 - 1 % 09/14/2024 12:24 PM CDT [facility] IMMATURE GRANULOCYTES 2 0 - 2 % 09/14/2024 12:24 PM CDT [facility] NEUTROPHIL ABSOLUTE 9.62(H) 2.00 - 8.00 K/uL 09/14/2024 12:24 PM CDT [facility] LYMPHOCYTE ABSOLUTE 0.71(L) 1.20 - 4.00 K/uL 09/14/2024 12:24 PM CDT [facility] MONOCYTE ABSOLUTE 0.38 0.10 - 0.60 K/uL 09/14/2024 12:24 PM CDT [facility] EOSINOPHIL ABSOLUTE 0.02 0.00 - 0.70 K/uL 09/14/2024 12:24 PM CDT [facility] BASOPHILS ABSOLUTE 0.02 0.00 - 0.20 K/uL 09/14/2024 12:24 PM CDT [facility] IMMATURE GRANULOCYTES ABSOLUTE 0.19(H) 0.00 - 0.10 K/uL 09/14/2024 12:24 PM CDT [facility] SMEAR REVIEWED: NN - No Action Needed 09/14/2024 12:24 PM [facility] Blood Venipuncture / Unknown 09/14/2024 12:08 PM CDT 09/14/2024 12:13 PM CDT Michael Tovar MD HEMATOLOGY ORDERABLES Final Result [facility] CLIA # [id number] [address] [place] [address] [place] [address] * (ABNORMAL) POC GLUCOSE (09/14/2024 11:25 AM CDT) GLUCOSE POC 386(H) 74 - 99 mg/dL 09/14/2024 11:25 AM CDT [facility] SPECIMEN SOURCE, GLUCOSE POC Capillary 09/14/2024 11:25 AM CDT [facility] Blood, whole 09/14/2024 11:2 5 AM CDT 09/14/2024 11:38 AM CDT Michael Tovar MD POINT OF CARE TESTING Final Result Performing Organization Address City/[facility]/ZIP Co de Phone Number [facility] CLIA # [id number] [address] [address] [place], [place] [address] * (ABNORMAL) POC GLUCOSE (09/14/2024 7:43 AM CDT) GLUCOSE POC 165(H) 74 - 99 mg/dL 09/14/2024 7:43 AM CDT [facility] SPECIMEN SOURCE, GLUCOSE POC Capillary 09/14/2024 7:43 AM CDT [facility] Blood, whole 09/14/2024 7:43 AM CDT 09/14/2024 8:02 AM CDT Michael Tovar MD POINT OF CARE TESTING Final Result Performing Organization Address City/[facility]/ZIP Co de Phone Number [facility] CLIA # [id number] [address] [address] * (ABNORMAL) BLOOD GAS ARTERIAL (09/13/2024 8:22 PM CDT) PH BLOOD POC 7.40 7.35 - 7.45 09/13/2024 8:22 PM CDT [facility] PCO2 POC 54(H) 35 - 45 mm Hg 09/13/2024 8:22 PM CDT [facility] PO2 POC 44(L) 80 - 105 mm Hg 09/13/2024 8:22 PM CDT [facility] HCO3 (CALC) POC 33(H) 22 - 26 mmol/L 09/13/2024 8:22 PM [facility] HEMOGLOBIN POC 10.8(L) 12.0 - 18.0 g/dL 09/13/2024 8:22 PM [facility] BASE EXCESS POC 9(H) -2 - 3 mmol/L 09/13/2024 8:22 PM [facility] O2 SATURATION POC 78(L) 95 - 98 % 09/13/2024 8:22 PM [facility] SODIUM POC 136(L) 138 - 146 mmol/L 09/13/2024 8:22 PM [facility] POTASSIUM POC 4.2 3.5 - 4.9 mmol/L 09/13/2024 8:22 PM [facility] HEMATOCRIT POC 32(L) 38 - 51 % 09/13/2024 8:22 PM [facility] PH TEMP CORRECT 7.40 7.35 - 7.45 09/13/2024 8:22 PM [facility] PCO2 TEMP CORRECT 54(H) 35 - 45 mm Hg 09/13/2024 8:22 PM [facility] PO2 TEMP CORRECT 44(L) 80 - 105 mm Hg 09/13/2024 8:22 PM [facility] SPECIMEN SOURCE, GASES POC Arterial 09/13/2024 8:22 PM [facility] CALCIUM IONIZED POC 5.1 4.8 - 5.2 mg/dL 09/13/2024 8:22 PM [facility] TCO2 (CALC) POC 35(H) 23 - 27 mmol/L 09/13/2024 8:22 PM [facility] LITER FLOW 3.0 L/min 09/13/2024 8:22 PM [facility] PUNC SITE POC ART PUNCT 09/13/2024 8:22 PM [facility] SOURCE OF OXYGEN POC Cannula 09/13/2024 8:22 PM [facility] Blood, arterial 09/13/2024 8 :22 PM CDT 09/13/2024 8:24 PM CDT Peña Mata MD ABG ORDERABLES Final Re sult [facility] # [id number] [address] [facility] [place] [address] * XR THORACOLUMBAR SPINE 2 VW (09/13/2024 8:00 PM CDT) Anatomical Region Laterality Modality Spine Computed Radiogr aphy 09/13/2024 8:00 PM CDT Impressions 09/14/2024 1:47 AM CDT IMPRESSION: 1. Subacute/chronic superior endplate compression deformity of L1. 2. Grade 1 anterolisthesis of L4 on L5 MACRO: None Narrative 09/14/2024 1:47 AM CDT EXAMINATION: XR THORACOLUMBAR SPINE 2 VW CLINICAL HISTORY: ASSOCIATED DIAGNOSIS: Fracture ORDERING PROVIDER: ANDRADE SAUNDERS NOTE: COMPARISON: Lumbar spine radiographs 03/24/2009 FINDINGS: Subacute/chronic superior endplate compression deformity of L1 with about 30% vertebral body height loss. Heights of the other vertebral bodies are maintained. No other acute fracture or aggressive osseous lesion. Grade 1 anterolisthesis of L4 on L5. Procedure Note Navarro Michelle MD - 09/14/2024 EXAMINATION: XR THORACOLUMBAR SPINE 2 VW CLINICAL HISTORY: ASSOCIATED DIAGNOSIS: Fracture ORDERING PROVIDER: ANDRADE FELTON TECHNYESSENIA NOTE: COMPARISON: Lumbar spine radiographs 03/24/2009 FINDINGS: Subacute/chronic superior endplate compression deformity of L1 with about 30% vertebral body height loss. Heights of the other vertebral bodies are maintained. No other acute fracture or aggressive osseous lesion. Grade 1 anterolisthesis of L4 on L5. IMPRESSION: 1. Subacute/chronic superior endplate compression deformity of L1. 2. Grade 1 anterolisthesis of L4 on L5 MACRO: None Andrade Felton MD DIAGNOSTIC IMAGING OR DERABLES Final Result * (ABNORMAL) POC GLUCOSE (09/13/2024 7:35 PM CDT) GLUCOSE POC 386(H) 74 - 99 mg/dL 09/13/2024 7:35 PM CDT [facility] SPECIMEN SOURCE, GLUCOSE POC Capillary 09/13/2024 7:35 PM CDT [facility] COMMENT, GLU POC Notified Caregiver 09/13/2024 7:35 PM CDT [facility] COMMENT 2, GLU POC Result Verified 09/13/2024 7:35 PM CDT [facility] Blood, whole 09/13/2024 7:35 PM CDT 09/13/2024 8:44 PM CDT Peña Mata MD POINT OF CARE TESTING Fi nal Result Performing Organization Address [facility] Co de Phone Number [facility] CLIA # [id number] [address] [address] * (ABNORMAL) POC GLUCOSE (09/13/2024 5:19 PM CDT) GLUCOSE POC 371(H) 74 - 99 mg/dL 09/13/2024 5:19 PM CDT [facility] SPECIMEN SOURCE, GLUCOSE POC Capillary 09/13/2024 5:19 PM CDT [facility] COMMENT, GLU POC Result Verified 09/13/2024 5:19 PM CDT [facility] Blood, whole 09/13/2024 5:19 PM CDT 09/13/2024 5:34 PM CDT Peña Mata MD POINT OF CARE TESTING Fi nal Result Performing Organization Address [facility]/ZIP Co de Phone Number [facility] CLIA # [id number] [address] [address] * (ABNORMAL) POC LACTIC ACID (09/13/2024 2:52 PM CDT) [facility] LACTIC ACID POC 3.2(H) <=2.0 mmol/L 09/13/2024 2:52 PM CDT [facility] SPECIMEN SOURCE, GASES POC Arterial 09/13/2024 2:52 PM CDT [facility] PUNC SITE POC ART PUNCT 09/13/2024 2:52 PM CDT [facility] Blood 09/13/2024 2:52 PM CDT 09/13/2024 2:55 PM CDT [facility] - 09/13/2024 2:52 PM CDT References ranges displayed are for Arterial samples. Peña Mata MD POINT OF CARE TESTING Fi nal Result [facility] CLIA # [id number] [address] [place] [address] * (ABNORMAL) BLOOD GAS ARTERIAL (09/13/2024 2:52 PM CDT) [facility] PH BLOOD POC 7.37 7.35 - 7.45 09/13/2024 2:52 PM CDT [facility] PCO2 POC 57(H) 35 - 45 mm Hg 09/13/2024 2:52 PM CDT [facility] PO2 POC 67(L) 80 - 105 mm Hg 09/13/2024 2:52 PM CDT [facility] HCO3 (CALC) POC 33(H) 22 - 26 mmol/L 09/13/2024 2:52 PM CDT [facility] HEMOGLOBIN POC 11.2(L) 12.0 - 18.0 g/dL 09/13/2024 2:52 PM CDT [facility] BASE EXCESS POC 8(H) -2 - 3 mmol/L 09/13/2024 2:52 PM CDT [facility] O2 SATURATION POC 95 95 - 98 % 09/13/2024 2:52 PM CDT [facility] SODIUM POC 133(L) 138 - 146 mmol/L 09/13/2024 2:52 PM T [facility] POTASSIUM POC 4.2 3.5 - 4.9 mmol/L 09/13/2024 2:52 PM [facility] HEMATOCRIT POC 34(L) 38 - 51 % 09/13/2024 2:52 PM CDT [facility] PH TEMP CORRECT 7.37 7.35 - 7.45 09/13/2024 2:52 PM CDT [facility] PCO2 TEMP CORRECT 57(H) 35 - 45 mm Hg 09/13/2024 2:52 PM CDT [facility] PO2 TEMP CORRECT 67(L) 80 - 105 mm Hg 09/13/2024 2:52 PM CDT [facility] SPECIMEN SOURCE, GASES POC Arterial 09/13/2024 2:52 PM CDT [facility] CALCIUM IONIZED POC 5.0 4.8 - 5.2 mg/dL 09/13/2024 2:52 PM T [facility] TCO2 (CALC) POC 35(H) 23 - 27 mmol/L 09/13/2024 2:52 PM [facility] LITER FLOW 3.0 L/min 09/13/2024 2:52 PM [facility] PUNC SITE POC ART PUNCT 09/13/2024 2:52 PM CDT [facility] SOURCE OF OXYGEN POC Cannula 09/13/2024 2:52 PM T [facility] Blood, arterial 09/13/2024 2 :52 PM CDT 09/13/2024 2:55 PM CDT Peña Mata MD ABG ORDERABLES Final Re sult [facility] CLIA # [id number] [address] [address] [place] [address] * BLOOD CULTURE (09/13/2024 2:15 PM CDT) BLOOD CULTURE No growth 09/18/2024 3:31 PM CDT [facility] Blood (Peripheral) Venipuncture / Unknown 09/13/2024 2:15 PM CDT 09/13/2024 2:38 PM CDT us Peña Mata MD MICROBIOLOGY - GENERAL O RDERABLES Final Result [facility] CLIA # [id number] [facility] [address] * US ABDOMEN LIMITED (09/13/2024 1:27 PM CDT) Anatomical Region Laterality Modality Abdomen Ultrasound 09/13/2024 1:27 PM CDT Impressions 09/13/2024 1:50 PM CDT IMPRESSION: 1. No evidence of cholelithiasis or biliary ductal dilatation. 2. Diffuse hepatic fatty infiltration. Narrative 09/13/2024 1:50 PM CDT Exam: US ABDOMEN LIMITED Date/Time of Exam: 09/13/2024 1:27 PM Reason For Exam: Abdominal Pain RUQ Diagnosis: Bipolar affective disorder, currently depressed, moderate (CMS/HCC); HEENA (generalized anxiety disorder); Protein-calorie malnutrition, moderate; H/O mastectomy, right; Chronic combined systolic and diastolic heart failure (CMS/HCC); COPD exacerbation (CMS/HCC); Opioid dependence with opioid-induced disorder (CMS/HCC) An ultrasound study was performed on the right upper quadrant. The liver shows diffusely increased echogenicity. No focal hepatic lesions are seen. There is no evidence of cholelithiasis, gallbladder wall thickening or abnormal pericholecystic fluid. The common bile duct is of normal caliber measuring 4 mm. The visualized portions of the head and body of the pancreas show normal echogenicity with no focal lesions. The tail of the pancreas is obscured by overlying bowel gas. No abnormal fluid collections are seen in the upper abdomen. The right kidney is unremarkable in appearance. Procedure Note Scooby Mcgowan MD - 09/13/2024 Exam: US ABDOMEN LIMITED Date/Time of Exam: 09/13/2024 1:27 PM Reason For Exam: Abdominal Pain RUQ Diagnosis: Bipolar affective disorder, currently depressed, moderate (CMS/HCC); HEENA (generalized anxiety disorder); Protein-calorie malnutrition, moderate; H/O mastectomy, right; Chronic combined systolic and diastolic heart failure (CMS/HCC); COPD exacerbation (CMS/HCC); Opioid dependence with opioid-induced disorder (CMS/HCC) An ultrasound study was performed on the right upper quadrant. The liver shows diffusely increased echogenicity. No focal hepatic lesions are seen. There is no evidence of cholelithiasis, gallbladder wall thickening or abnormal pericholecystic fluid. The common bile duct is of normal caliber measuring 4 mm. The visualized portions of the head and body of the pancreas show normal echogenicity with no focal lesions. The tail of the pancreas is obscured by overlying bowel gas. No abnormal fluid collections are seen in the upper abdomen. The right kidney is unremarkable in appearance. IMPRESSION: 1. No evidence of cholelithiasis or biliary ductal dilatation. 2. Diffuse hepatic fatty infiltration. Peña Mata MD US ORDERABLES Final Re sult * URINE CULTURE (09/13/2024 1:12 PM CDT) CULTURE Polymicrobial growth consistent with normal urethral kota and/or colonizing bacteria 09/14/2024 11:22 AM CDT [facility] Urine URINE SPECIMEN OBTAINED BY CLEAN CATCH PROCEDURE / Unknown Collection / Unknown 09/13/2024 1:12 PM CDT 09/13/2024 1:20 PM CDT Peña Mata MD MICROBIOLOGY - GENERAL O RDERABLES Final Result [facility] CLIA # [id number] [facility] [address] [place] [address] * EXTRA TUBE (URINE [place]) (09/13/2024 1:12 PM CDT) Urine URINE SPECIMEN OBTAINED BY CLEAN CATCH PROCEDURE / Unknown Collection / Unknown 09/13/2024 1:12 PM CDT 09/13/2024 1:20 PM CDT Peña Mata MD URINE ORDERABLES Final R esult [facility] CLIA # [id number] [address] [address] [place] [address] * (ABNORMAL) URINALYSIS WITH REFLEX MICROSCOPIC (09/13/2024 1:12 PM CDT) COLOR UA Colorless(A ) Pale to Dark Yellow 09/13/2024 1:29 PM CDT [facility] CLARITY UA Clear Clear 09/13/2024 1:29 PM CDT [facility] SPECIFIC GRAVITY UA 1.012 1.003 - 1.035 09/13/2024 1:29 PM T [facility] PH UA 5.5 5.0 - 8.0 09/13/2024 1:29 PM T [facility] LEUKOCYTE ESTERASE UA 2+(A) Negative 09/13/2024 1:29 PM T [facility] NITRITE UA Negative Negative 09/13/2024 1:29 PM CDT [facility] PROTEIN UA Negative Negative 09/13/2024 1:29 PM CDT [facility] GLUCOSE UA 2+(A) Negative 09/13/2024 1:29 PM CDT [facility] KETONES UA Negative Negative 09/13/2024 1:29 PM T [facility] UROBILINOGEN UA <2.0 <2.0 mg/dL 1:29 PM T [facility] BILIRUBIN UA Negative Negative 09/13/2024 1:29 PM CDT [facility] BLOOD UA Negative Negative 09/13/2024 1:29 PM CDT [facility] WBC UA 0-2 0 - 2 /hpf 09/13/2024 1:29 PM CDT [facility] RBC UA 0-2 0 - 2 /hpf 09/13/2024 1:29 PM CDT [facility] BACTERIA UA 2+(A) Negative /hpf 09/13/2024 1:29 PM CDT [facility] EPITHELIAL CELLS, URINE 0-5 0 - 5 /hpf 09/13/2024 1:29 PM CDT [facility] HYALINE CAST 0-2 None Seen, 0-2 /lpf 09/13/2024 1:29 PM CDT [facility] Urine URINE SPECIMEN OBTAINED BY CLEAN CATCH PROCEDURE / Unknown Collection / Unknown 09/13/2024 1:12 PM CDT 09/13/2024 1:20 PM CDT Peña Mata MD URINE ORDERABLES Final R esult [facility] CLIA # [id number] [address] [address] * BLOOD CULTURE (09/13/2024 12:55 PM CDT) BLOOD CULTURE No growth 09/18/2024 1:24 PM CDT [facility] Blood (Peripheral) Venipuncture / Unknown 09/13/2024 12:55 PM CDT 09/13/2024 1:00 PM CDT Peña Mata MD MICROBIOLOGY - GENERAL O RDERABLES Final Result [facility] CLIA # [id number] [address] [place] [address] * (ABNORMAL) LACTIC ACID (09/13/2024 12:55 PM CDT) Pathologist [facility] LACTIC ACID 2.2(H) <=2.0 mmol/L 09/13/2024 1:34 PM CDT [facility] Blood Venipuncture / Unknown 09/13/2024 12:55 PM CDT 09/13/2024 1:00 PM CDT Peña Mata MD CHEMISTRY ORDERABLES Fin al Result Performing Organization Address City/[facility]/ZIP Co de Phone Number [facility] CLIA # [id number] [address] [id number] * (ABNORMAL) POC GLUCOSE (09/13/2024 12:23 PM CDT) [facility] GLUCOSE POC 229(H) 74 - 99 mg/dL 09/13/2024 12:23 PM CDT [facility] SPECIMEN SOURCE, GLUCOSE POC Capillary 09/13/2024 12:23 PM CDT [facility] Blood, whole 09/13/2024 12:2 3 PM CDT 09/13/2024 2:10 PM CDT Peña Mata MD POINT OF CARE TESTING Fi nal Result Performing Organization Address [facility]/ZIP Co de Phone Number [facility] CLIA # [id number] [address] [address] * (ABNORMAL) BLOOD GAS VENOUS (09/13/2024 11:47 AM CDT) [facility] PH BLOOD POC 7.31(L) 7.32 - 7.43 09/13/2024 11:47 AM CDT [facility] PCO2 POC 64(H) 38 - 50 mm Hg 09/13/2024 11:47 [facility] POC 66(H) 25 - 40 mm Hg 09/13/2024 11:47 AM [facility] HCO3 (CALC) POC 32(H) 22 - 29 mmol/L 09/13/2024 11:47 AM [facility] HEMOGLOBIN POC 10.7(L) 12.0 - 18.0 g/dL 09/13/2024 11:47 AM [facility] BASE EXCESS POC 6(H) -2 - 3 mmol/L 09/13/2024 11:47 AM [facility] O2 SATURATION POC 94(H) 40 - 70 % 09/13/2024 11:47 AM [facility] SODIUM POC 136 135 - 145 mmol/L 09/13/2024 11:47 AM [facility] POTASSIUM POC 4.3 3.5 - 4.9 mmol/L 09/13/2024 11:47 AM [facility] HEMATOCRIT POC 32(L) 38 - 51 % 09/13/2024 11:47 AM [facility] PH TEMP CORRECT 7.31(L) 7.32 - 7.43 09/13/2024 11:47 AM [facility] PCO2 TEMP CORRECT 64(H) 38 - 50 mm Hg 09/13/2024 11:47 AM [facility] PO2 TEMP CORRECT 66(H) 25 - 40 mm Hg 09/13/2024 11:47 AM [facility] SPECIMEN SOURCE, GASES POC Venous 09/13/2024 11:47 AM [facility] CALCIUM IONIZED POC 5.3(H) 4.8 - 5.2 mg/dL 09/13/2024 11:47 AM [facility] TCO2 (CALC) POC 34(H) 22 - 26 mmol/L 09/13/2024 11:47 AM [facility] PUNC SITE POC No Charge 09/13/2024 11:47 AM [facility] Blood, venous 09/13/2024 11: 47 AM CDT 09/13/2024 11:49 AM CDT Peña Mata MD ABG ORDERABLES Final Re sult Performing Organization Address [facility] Co de Phone Number [facility] [employer] [facility] CLIA # [id number] [address] [address] * PROTIME-INR (09/13/2024 9:16 AM CDT) [facility] PROTIME 13.8 12.7 - 14.9 Seconds 09/13/2024 9:40 AM CDT [facility] [employer] [facility] INR 1.0 0.8 - 1.2 09/13/2024 9:40 AM CDT [facility] [employer] [facility] Blood Venipuncture / Unknown 09/13/2024 9:16 AM CDT 09/13/2024 9:24 AM CDT Narrative [facility] [place] [employer] [facility] - 09/13/2024 9:40 AM CDT Expected Values for INR: DVT/PE Goal INR 2.5; range 2.0 - 3.0 Valve Replacement Tissue Goal INR 2.5; range 2.0 - 3.0 Valve Replacement Mechanical Goal INR 3.0; range 2.5 - 3.5 POST-SC Goal INR 2.5; range 2.0 - 3.0 or Goal INR 3.0; range 2.5 - 3.5 Atrial Fibrillation Goal INR 2.5; range 2.0 - 3.0 Ischemic Stroke Goal INR 2.5; range 2.0 - 3.0 Peña Mata MD HEMATOLOGY ORDERABLES Fi nal Result Performing Organization Address City/[facility]/ZIP Co de Phone Number [facility] [place] [employer] [facility] CLIA # [id number] [id number] * (ABNORMAL) BLOOD GAS VENOUS (09/13/2024 9:16 AM CDT) [facility] PH BLOOD POC 7.28(L) 7.32 - 7.43 09/13/2024 9:16 AM [facility] PCO2 POC 65(H) 38 - 50 mm Hg 09/13/2024 9:16 AM [facility] PO2 POC 62(H) 25 - 40 mm Hg 09/13/2024 9:16 AM [facility] HCO3 (CALC) POC 31(H) 22 - 29 mmol/L 09/13/2024 9:16 AM [facility] HEMOGLOBIN POC 11.3(L) 12.0 - 18.0 g/dL 09/13/2024 9:16 AM [facility] BASE EXCESS POC 4(H) -2 - 3 mmol/L 09/13/2024 9:16 AM [facility] O2 SATURATION POC 91(H) 40 - 70 % 09/13/2024 9:16 AM [facility] SODIUM POC 137 135 - 145 mmol/L 09/13/2024 9:16 AM [facility] POTASSIUM POC 4.6 3.5 - 4.9 mmol/L 09/13/2024 9:16 AM [facility] HEMATOCRIT POC 34(L) 38 - 51 % 09/13/2024 9:16 AM [facility] PH TEMP CORRECT 7.28(L) 7.32 - 7.43 09/13/2024 9:16 AM [facility] PCO2 TEMP CORRECT 65(H) 38 - 50 mm Hg 09/13/2024 9:16 AM [facility] PO2 TEMP CORRECT 62(H) 25 - 40 mm Hg 09/13/2024 9:16 AM [facility] SPECIMEN SOURCE, GASES POC Venous 09/13/2024 9:16 AM [facility] CALCIUM IONIZED POC 5.2 4.8 - 5.2 mg/dL 09/13/2024 9:16 AM [facility] TCO2 (CALC) POC 33(H) 22 - 26 mmol/L 09/13/2024 9:16 AM CDT [facility] No Charge 09/13/2024 9:16 AM CDT [facility] Blood, venous 09/13/2024 9:1 6 AM CDT 09/13/2024 9:19 AM CDT Peña Mata MD ABG ORDERABLES Final Re sult [facility] CLIA # [id number] [facility] [address] * (ABNORMAL) BASIC METABOLIC PANEL (09/13/2024 9:16 AM CDT) SODIUM 139 136 - 145 mmol/L 09/13/2024 9:59 AM T [facility] POTASSIUM 4.5 3.5 - 5.1 mmol/L 09/13/2024 9:59 AM T [facility] CHLORIDE 102 98 - 107 mmol/L 09/13/2024 9:59 AM T [facility] CO2 25 22 - 29 mmol/L 09/13/2024 9:59 AM T [facility] CALCIUM 9.4 8.6 - 10.0 mg/dL 09/13/2024 9:59 AM T [facility] BUN 20 6 - 20 mg/dL 09/13/2024 9:59 AM T [facility] CREATININE 0.52 0.51 - 0.95 mg/dL 09/13/2024 9:59 AM T [facility] GLUCOSE 257(H) 74 - 99 mg/dL 09/13/2024 9:59 AM T [facility] GFR >60 >=60 mL/min/1.7 3 sq meter 09/13/2024 9:59 AM T [facility] Comment:eGFR calculated with 2020 CKD-EPI equation. Vegetarian diet, extremely high or low muscle mass, and may affect results. Cystatin C with Glomerular Filtration Rate is a suitable alternative for these patients. ANION GAP 12 9 - 20 mmol/L 09/13/2024 9:59 AM T [facility] Blood Venipuncture / Unknown 09/13/2024 9:16 AM CDT 09/13/2024 9:25 AM CDT Nba Baig MD CHEMISTRY ORDERABLES Fi nal Result [facility] CLIA # [id number] [address] [place] [address] * (ABNORMAL) CBC WITH DIFFERENTIAL (09/13/2024 9:16 AM CDT) WBC 11.9(H) 4.8 - 10.8 K/uL 09/13/2024 9:40 AM T [facility] NRBCS 7(H) <1 % 09/13/2024 9:40 AM [facility] RBC 3.47(L) 4.20 - 5.40 M/uL 09/13/2024 9:40 AM T [facility] HEMOGLOBIN 10.9(L) 12.0 - 16.0 g/dL 09/13/2024 9:40 AM [facility] HEMATOCRIT 36.0 36.0 - 46.0 % 09/13/2024 9:40 AM T [facility] MCV 103.7(H) 84.0 - 103.0 fL 09/13/2024 9:40 AM T [facility] MCH 31.4 27.0 - 34.0 pg 09/13/2024 9:40 AM T [facility] MCHC 30.3 30.0 - 35.0 g/dL 09/13/2024 9:40 AM T [facility] PLATELETS 166 140 - 440 K/uL 09/13/2024 9:40 AM [facility] MPV 10.5 8.9 - 12.8 fL 09/13/2024 9:40 AM [facility] RDW 18.9(H) 11.0 - 14.5 % 09/13/2024 9:40 AM [facility] RDW-STDEV 72.3(H) 37.0 - 54.0 fL 09/13/2024 9:40 AM [facility] NEUTROPHILS 73 42 - 75 % 09/13/2024 9:40 AM [facility] LYMPHOCYTES 10(L) 24 - 44 % 09/13/2024 9:40 AM [facility] MONOCYTES 12(H) 2 - 10 % 09/13/2024 9:40 AM [facility] EOSINOPHILS 0 0 - 7 % 09/13/2024 9:40 AM [facility] BASOPHILS 1 0 - 1 % 09/13/2024 9:40 AM [facility] IMMATURE GRANULOCYTES 4(H) 0 - 2 % 09/13/2024 9:40 AM [facility] NEUTROPHIL ABSOLUTE 8.69(H) 2.00 - 8.00 K/uL 09/13/2024 9:40 AM [facility] LYMPHOCYTE ABSOLUTE 1.17(L) 1.20 - 4.00 K/uL 09/13/2024 9:40 AM [facility] MONOCYTE ABSOLUTE 1.40(H) 0.10 - 0.60 K/uL 09/13/2024 9:40 AM [facility] EOSINOPHIL ABSOLUTE 0.02 0.00 - 0.70 K/uL 09/13/2024 9:40 AM [facility] BASOPHILS ABSOLUTE 0.08 0.00 - 0.20 K/uL 09/13/2024 9:40 AM [facility] IMMATURE GRANULOCYTES ABSOLUTE 0.51(H) 0.00 - 0.10 K/uL 09/13/2024 9:40 AM [facility] SMEAR REVIEWED: NN - No Action Needed 09/13/2024 9:40 AM CDT [facility] Blood Venipuncture / Unknown 09/13/2024 9:16 AM CDT 09/13/2024 9:24 AM CDT Nba Baig MD HEMATOLOGY ORDERABLES F inal Result Performing Organization Address [facility] Co de Phone Number [facility] CLIA # [id number] [address] [address] [place] [address] * (ABNORMAL) TROPONIN 6 HR, 5TH GEN (09/13/2024 9:16 AM CDT) Pathologist [facility] TROPONIN T, 6 HR 5TH GEN 29(H) <11 ng/L 09/13/2024 9:55 AM CDT [facility] DELTA 6HR TROPONIN T 1 See Interp. 09/13/2024 9:55 AM CDT [facility] Blood Venipuncture / Unknown 09/13/2024 9:16 AM CDT 09/13/2024 9:24 AM CDT Narrative [facility] - 09/13/2024 9:55 AM CDT Troponin elevated. Delta indeterminate. Robbie Yen DO CHEMISTRY ORDERABLES F inal Result Performing Organization Address City/[facility] Co de Phone Number [facility] CLIA # [id number] [address] [address] * (ABNORMAL) POC GLUCOSE (09/13/2024 6:58 AM CDT) [facility] GLUCOSE POC 266(H) 74 - 99 mg/dL 09/13/2024 6:58 AM CDT [facility] SPECIMEN SOURCE, GLUCOSE POC Capillary 09/13/2024 6:58 AM CDT [facility] Blood, whole 09/13/2024 6:58 AM CDT 09/13/2024 7:16 AM CDT Nba Baig MD POINT OF CARE TESTING F inal Result Performing Organization Address [facility] Co de Phone Number [id number] [address] * RESPIRATORY PATHOGEN PCR PANEL (09/12/2024 11:02 PM CDT) [facility] Respiratory Pathogen PCR Panel NOT DETECTED No respiratory pathogen nucleic acids detected. 09/13/2024 12:31 AM CDT [facility] COVID-19 PCR NOT DETECTED Not Detected 09/13/2024 12:31 AM CDT [facility] Upper Respiratory ENTIRE NASOPHARYNX / Unknown Collection / Unknown 09/12/2024 11:02 PM CDT 09/12/2024 11:08 PM CDT Narrative [facility] - 09/13/2024 12:31 AM CDT The Film Array Respiratory Panel (RP2.1) is a multiplex nucleic acid detection test for 22 targets. Viruses: Adenovirus Coronavirus HKU1, NL63, 229E, and OC43 COVID-19/Severe Acute Respiratory Syndrome Coronavirus 2 Influenza A with the following subtypes: H1, H1-2009, and H3 Influenza B Human Metapneumovirus Parainfluenza virus 1, 2, 3, and 4 Respiratory Syncytial virus (RSV) Rhinovirus/Enterovirus (cannot differentiate due to genetic similarities) Bacteria: Bordetella pertussis Bordetella parapertussis Chlamydophila pneumoniae Mycoplasma pneumoniae Robbie Yen DO MICROBIOLOGY - GENERAL ORDERABLES Final Result Performing Organization Address [facility]/ZIP Co de Phone Number [facility] [id number] [id number] [place] [address] * (ABNORMAL) TROPONIN 2 HR, 5TH GEN (09/12/2024 11:02 PM CDT) TROPONIN T, 2 HR 5TH GEN 27(H) <=10 ng/L 09/12/2024 11:41 PM CDT [facility] [employer] [facility] DELTA 2HR TROPONIN T -1 See Interp. 09/12/2024 11:41 PM CDT [facility] Blood Venipuncture / Unknown 09/12/2024 11:02 PM CDT 09/12/2024 11:10 PM CDT Narrative [facility] - 09/12/2024 11:41 PM CDT Troponin elevated. Delta not changing. Robbie Yen DO CHEMISTRY ORDERABLES F inal Result [facility] CLIA # [id number] [facility] [address] [place] [address] * XR CHEST PA OR AP 1 VW (09/12/2024 10:18 PM CDT) Anatomical Region Laterality Modality Chest Computed Radiogr aphy 09/12/2024 10:1 8 PM CDT Impressions 09/13/2024 7:06 AM CDT IMPRESSION: Please see below. Exam: XR CHEST PA OR AP 1 VW Date/Time of Exam: 09/12/2024 10:18 PM Reason For Exam: Shortness of Breath SOB. Diagnosis: See Reason for Exam. Comparison: 09/10/2024. Findings: Stable mild cardiomegaly. No airspace consolidation or significant pleural fluid and no pneumothorax. Fixation plate and screws in the lower cervical spine. IMPRESSION:. No significant change. Narrative Procedure Note John Haile MD - 09/13/2024 IMPRESSION: Please see below. Exam: XR CHEST PA OR AP 1 VW Date/Time of Exam: 09/12/2024 10:18 PM Reason For Exam: Shortness of Breath SOB. Diagnosis: See Reason for Exam. Comparison: 09/10/2024. Findings: Stable mild cardiomegaly. No airspace consolidation or significant pleural fluid and no pneumothorax. Fixation plate and screws in the lower cervical spine. IMPRESSION:. No significant change. Robbie Yen DO DIAGNOSTIC IMAGING ORD ERABLES Final Result * EXTRA TUBE (BLUE) (09/12/2024 9:32 PM CDT) Blood Venipuncture / Unknown 09/12/2024 9:32 PM CDT 09/12/2024 10:59 PM CDT External Provider [facility] HEMATOLOGY ORDERABLES Jana l Result Performing Organization Address [facility] Co de Phone Number [facility] [employer] [facility] CLIA # [id number] [address] [address] * (ABNORMAL) BRAIN NATRIURETIC PEPTIDE, BNP OR PROBNP (09/12/2024 9:32 PM CDT) PROBNP, N TERMINAL 623(H) 0 - 125 pg/mL 09/12/2024 10:22 PM CDT [facility] [employer] [facility] Comment: INTERPRETIVE COMMENT based on diagnosis: Diagnostic NT pro-BNP cutoffs for Heart Failure in the absence of renal failure is suggested for the following ranges <75 years: <125 pg/mL >=75 years: <450 pg/mL Exclusionary rule out cut-point for Acute Decompensated Heart Failure(ADHF) All ages: <300 pg/mL Diagnostic NT pro-BNP cutoffs for Acute Decompensated Heart Failure(ADHF) in the absence of renal failure is suggested for the following ages <50 years: > 450 pg/mL 50-75 years: > 900 pg/mL >75 years: >1800 pg/mL Blood Venipuncture / Unknown 09/12/2024 9:32 PM CDT 09/12/2024 9:41 PM CDT Robbie Yen DO CHEMISTRY ORDERABLES F inal Result Performing Organization Address [facility]/ZIP Co de Phone Number [facility] CLIA # [id number] [address] [address] [place] [address] * (ABNORMAL) TROPONIN BASELINE, 5TH GEN (09/12/2024 9:32 PM CDT) Pathologist [facility] TROPONIN T, BASELINE 5TH GEN 28(H) <=10 ng/L 09/12/2024 10:15 PM CDT [facility] Blood Venipuncture / Unknown 09/12/2024 9:32 PM CDT 09/12/2024 9:41 PM CDT Narrative [facility] - 09/12/2024 10:15 PM CDT Troponin elevated. us Robbie Yen DO CHEMISTRY ORDERABLES F inal Result [facility] CLIA # [id number] [address] [address] * (ABNORMAL) COMPREHENSIVE METABOLIC PANEL (09/12/2024 9:32 PM CDT) [facility] SODIUM 139 136 - 145 mmol/L 09/12/2024 11:12 PM CDT [facility] POTASSIUM 4.2 3.5 - 5.1 mmol/L 09/12/2024 11:12 PM CDT [facility] CHLORIDE 103 98 - 107 mmol/L 09/12/2024 11:12 PM CDT [facility] CO2 22 22 - 29 mmol/L 09/12/2024 11:12 PM CDT [facility] CALCIUM 9.4 8.6 - 10.0 mg/dL 09/12/2024 11:12 PM CDT [facility] BUN 24(H) 6 - 20 mg/dL 09/12/2024 11:12 PM CDT [facility] CREATININE 0.70 0.51 - 0.95 mg/dL 09/12/2024 11:12 PM [facility] GLUCOSE 275(H) 74 - 99 mg/dL 09/12/2024 11:12 PM [facility] TOTAL PROTEIN 6.0(L) 6.4 - 8.3 g/dL 09/12/2024 11:12 PM [facility] ALBUMIN 3.4(L) 3.5 - 5.2 g/dL 09/12/2024 11:12 PM [facility] BILIRUBIN TOTAL 0.2 0.0 - 1.0 mg/dL 09/12/2024 11:12 PM [facility] ALKALINE PHOSPHATASE 108(H) 35 - 104 U/L 09/12/2024 11:12 PM [facility] AST 28 10 - 35 U/L 09/12/2024 11:12 PM [facility] Comment: Hemolysis present. Result may be falsely elevated. Lipemia cleared by ultracentrifugation. ALT 49(H) <=35 U/L 09/12/2024 11:12 PM [facility] Comment:Lipemia cleared by u ltracentrifugation. GFR >60 >=60 mL/min/1.7 3 sq meter 09/12/2024 11:12 PM [facility] Comment:eGFR calculated with 2020 CKD-EPI equation. Vegetarian diet, extremely high or low muscle mass, and may affect results. Cystatin C with Glomerular Filtration Rate is a suitable alternative for these patients. ANION GAP 14 9 - 20 mmol/L 09/12/2024 11:12 PM [facility] Blood Venipuncture / Unknown 09/12/2024 9:32 PM CDT 09/12/2024 9:41 PM CDT us Robbie Yen DO CHEMISTRY ORDERABLES F inal Result [facility] CLIA # [id number] [address] [address] [place], [place] [address] * (ABNORMAL) CBC WITH DIFFERENTIAL (09/12/2024 9:32 PM CDT) [facility] WBC 8.0 4.8 - 10.8 K/uL 09/12/2024 9:55 PM CDT [facility] NRBCS 8(H) <1 % 09/12/2024 9:55 PM CDT [facility] RBC 3.35(L) 4.20 - 5.40 M/uL 09/12/2024 9:55 PM CDT [facility] HEMOGLOBIN 10.8(L) 12.0 - 16.0 g/dL 09/12/2024 9:55 PM [facility] HEMATOCRIT 33.9(L) 36.0 - 46.0 % 09/12/2024 9:55 [facility] M[facility] 101.2 84.0 - 103.0 fL 09/12/2024 9:55 PM CDT [facility] MCH 32.2 27.0 - 34.0 pg 09/12/2024 9:55 PM CDT [facility] MCHC 31.9 30.0 - 35.0 g/dL 09/12/2024 9:55 PM CDT [facility] PLATELETS 180 140 - 440 K/uL 09/12/2024 9:55 PM [facility] MPV 10.8 8.9 - 12.8 fL 09/12/2024 9:55 PM CDT [facility] RDW 19.2(H) 11.0 - 14.5 % 09/12/2024 9:55 PM [facility] RDW-STDEV 71.1(H) 37.0 - 54.0 fL 09/12/2024 9:55 PM CDT [facility] NEUTROPHILS 54 42 - 75 % 09/12/2024 9:55 PM CDT [facility] LYMPHOCYTES 28 24 - 44 % 09/12/2024 9:55 PM CDT [facility] MONOCYTES 12(H) 2 - 10 % 09/12/2024 9:55 PM CDT [facility] EOSINOPHILS 1 0 - 7 % 09/12/2024 9:55 PM CDT [facility] BASOPHILS 1 0 - 1 % 09/12/2024 9:55 PM CDT [facility] IMMATURE GRANULOCYTES 4(H) 0 - 2 % 09/12/2024 9:55 PM CDT [facility] NEUTROPHIL ABSOLUTE 4.35 2.00 - 8.00 K/uL 09/12/2024 9:55 PM CDT [facility] LYMPHOCYTE ABSOLUTE 2.24 1.20 - 4.00 K/uL 09/12/2024 9:55 PM CDT [facility] MONOCYTE ABSOLUTE 0.93(H) 0.10 - 0.60 K/uL 09/12/2024 9:55 PM CDT [facility] EOSINOPHIL ABSOLUTE 0.11 0.00 - 0.70 K/uL 09/12/2024 9:55 PM CDT [facility] BASOPHILS ABSOLUTE 0.05 0.00 - 0.20 K/uL 09/12/2024 9:55 PM CDT [facility] IMMATURE GRANULOCYTES ABSOLUTE 0.35(H) 0.00 - 0.10 K/uL 09/12/2024 9:55 PM CDT [facility] SMEAR REVIEWED: NA - Not Applicable 09/12/2024 9:55 PM CDT [facility] Blood Venipuncture / Unknown 09/12/2024 9:32 PM CDT 09/12/2024 9:41 PM CDT us Robbie Yen DO HEMATOLOGY ORDERABLES Final Result [facility] CLIA # [id number] [facility] [address] [address] [place] [address] * EKG 12-LEAD (09/12/2024 9:23 PM CDT) 09/12/2024 9:2 3 PM CDT Narrative INTERFACE SYSTEM - 09/13/2024 6:08 PM CDT [address] [address] Test Date: 2024-09-12 Pat Name: GIANFRANCO DIAZ Department: 11 Room: 18 18 Gender: Female 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: [id number] : 1965 Requested By: Order Number: [id number] Reading : Kyler Helm Measurements Intervals Marshall Rate: 95 P: 33 WA: 138 QRS: 48 QRSD: 80 T: -10 QT: 332 QTc: 417 Interpretive Statements Normal sinus rhythm Possible Left atrial enlargement Possible Inferior infarct, age undetermined Abnormal ECG Electronically Signed On 09-13-2024 18:08:49 CDT by Kyler Helm Procedure Note Kyler Helm MD - 09/13/[address] [address] Test Date: 2024-09-12 Pat Name: GIANFRANCO DIAZ Department: 11 Room: 18 18 Gender: Female 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: [id number] : 1965 Requested By: Order Number: [id number] Reading : Kyler Helm Measurements Intervals Marshall Rate: 95 P: 33 WA: 138 QRS: 48 QRSD: 80 T: -10 QT: 332 QTc: 417 Interpretive Statements Normal sinus rhythm Possible Left atrial enlargement Possible Inferior infarct, age undetermined Abnormal ECG Electronically Signed On 09-13-2024 18:08:49 CDT by Kyler Helm us Robbie Yen DO ECG ORDERABLES Final Result INTERFACE SYSTEM Refer to clinic/hospital department * Critical Care (09/12/2024 9:09 PM CDT) Narrative Robbie Yen DO - 09/12/2024 9:09 PM CDT Robbie Yen DO 09/12/2024 11:09 PM Critical Care Performed by: Robbie Yen DO Authorized by: Robbie Yen DO Critical care provider statement: Critical care time (minutes): 45 Critical care was necessary to treat or prevent imminent or life-threatening deterioration of the following conditions: Respiratory failure Critical care was time spent personally by me on the following activities: Ordering and performing treatments and interventions, ordering and review of laboratory studies, ordering and review of radiographic studies, pulse oximetry, re-evaluation of patient's condition, review of old charts, development of treatment plan with patient or surrogate, discussions with primary provider, evaluation of patient's response to treatment, examination of patient and obtaining history from patient or surrogate Robbie Yen DO PROCEDURE/MINOR SURGIC AL ORDERABLES Final Result documented in this encounter Visit Diagnoses Diagnosis COPD exacerbation ([facility])- Primary Obstructive chronic bronchitis with exacerbation Bipolar affective disorder, currently depressed, moderate (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) Chronic combined systolic and diastolic heart failure COPD exacerbation ([facility]) Obstructive chronic bronchitis with exacerbation Opioid dependence with opioid-induced disorder ([facility]) Unspecified drug-induced mental disorder Closed fracture of first lumbar vertebra, unspecified fracture morphology, initial encounter ([facility]) Bipolar affective disorder ([facility]) Bipolar disorder, unspecified Former smoker Personal history of tobacco use, presenting hazards to health HEENA (generalized anxiety disorder) Generalized anxiety disorder GERD (gastroesophageal reflux disease) Esophageal reflux Closed compression fracture of body of L1 vertebra ([facility]) Chronic anticoagulation Encounter for long-term (current) use of anticoagulants Benign hypertension Essential hypertension, benign Insulin dependent type 2 diabetes mellitus ([facility]) Type II or unspecified type diabetes mellitus without mention of complication, not stated as uncontrolled Acute on chronic hypoxic respiratory failure ([facility]) Chronic hypoxic respiratory failure ([facility]/HCC) Chronic combined systolic and diastolic heart failure ([facility]/H[facility]) Chronic combined systolic and diastolic heart failure Acute respiratory failure with hypercapnia ([facility]) Acute respiratory failure RUQ pain Abdominal pain, right upper quadrant Diarrhea documented in this encounter Administered Medications Inactive Administered Medications - up to 3 most recent administrations Medication Order MAR Action Action Date Dose Rate Site acetaminophen (TYLENOL) tablet 650 mg 650 mg, Oral, EVERY 6 HOURS PRN, Starting on Thu09/12/24 at 2306, Until [place] 6/26/25 at 1432, Other (See Comment), See admin instructions, Routine amLODIPine (NORVASC) tablet 2.5 mg 2.5 mg, Oral, DAILY LATE, First dose on Thu09/13/24 at 1700, Until Discontinued, Routine, Previous Med: amLODIPine (NORVASC) 2.5 mg tablet - Orig Sig - Take 2.5 mg by mouth late in the day. Given 09/14/2024 4:45 PM CDT 2.5 mg Given 09/13/2024 5:48 PM CDT 2.5 mg aspirin (CARTER CHEWABLE) chewable tablet 81 mg 81 mg, Oral, DAILY, First dose on Thu09/13/24 at 0900, Until Discontinued, Routine, Previous Med: aspirin (CARTER CHEWABLE) 81 mg Tablet, Chewable - Orig Sig - Take 81 mg by mouth daily. Given 09/15/2024 8:17 AM CDT 81 mg Given 09/14/2024 8:28 AM CDT 81 mg Given 09/13/2024 9:58 AM CDT 81 mg atorvastatin (LIPITOR) tablet 40 mg 40 mg, Oral, DAILY AT BEDTIME, First dose on Thu09/13/24 at 0030, Until Discontinued, Routine, Previous Med: atorvastatin (LIPITOR) 40 mg tablet - Orig Sig - Take 40 mg by mouth daily at bedtime. Given 09/14/2024 9:00 PM CDT 40 mg Given 09/13/2024 10:23 PM CDT 40 mg Given 09/13/2024 1:04 AM CDT 40 mg buPROPion HCL (WELLBUTRIN XL) 24 hour tablet 300 mg 300 mg, Oral, DAILY, First dose on Thu09/13/24 at 0900, Until Discontinued, Routine, Previous Med: buPROPion HCL (WELLBUTRIN XL) 300 mg Extended Release 24 hour tablet - Orig Sig - Take 1 Tablet by mouth daily. Given 09/15/2024 8:17 AM CDT 300 mg Given 09/14/2024 8:28 AM CDT 300 mg Given 09/13/2024 9:58 AM CDT 300 mg calcium as CARBONATE (TUMS) 500 mg (200 mg elemental) chewable tablet 400 mg 400 mg, Oral, EVERY 6 HOURS PRN, 2 doses, Starting on Thu09/12/24 at 2306, Until [place] 09/15/24 at 1432, Dyspepsia, Routine cefTRIAXone (ROCEPHIN) 2,000 mg in sodium chloride 0.9% 50 mL IVPB (MBP) 2,000 mg, IV, EVERY 24 HOURS (DAILY), First dose on Thu09/13/24 at 1430, Until Discontinued, Routine, Antibiotic Indication: Urinary Tract Infection(UTI) / Infection New Bag 09/14/2024 1:11 PM CDT 2,000 mg 1 18 mL/hr New Bag 09/13/2024 3:52 PM CDT 2,000 mg 118 mL/hr dextromethorphan-guaiFENesin (ROBITUSSIN DM) 10-100 mg/5 mL oral solution 10 mL 10 mL, Oral, EVERY 4 HOURS PRN, Starting on Thu09/13/24 at 0019, Until Thu09/15/24 at 1432, Cough, to thin mucus and quiet cough, Routine dextrose 5 % - sodium chloride 0.9 % infusion IV, at 40 mL/hr, SEE ADMIN INSTRUCTIONS, Starting on Thu09/13/24 at 0048, Until Thu09/15/24 at 1432, Routine dextrose 5 % in water 250 mL flush bag 25 mL 25 mL, IV, SEE ADMIN INSTRUCTIONS, Starting on Thu09/12/24 at 2306, Until [place] 09/15/24 at 1432, Routine dextrose 50% (D50) syringe 12.5 Gram 12.5 Gram, IV, SEE ADMIN INSTRUCTIONS, Starting on Thu09/13/24 at 0048, Until Thu09/15/24 at 1432, Routine dextrose 50% (D50) syringe 25 Gram 25 Gram, IV, SEE ADMIN INSTRUCTIONS, Starting on Thu09/13/24 at 0048, Until Thu09/15/24 at 1432, Routine doxycycline hyclate (VIBRAMYCIN) 100 mg in sodium chloride 0.9% 100 mL IVPB (MBP) 100 mg, IV, EVERY 12 HOURS (BlD), First dose on Thu09/14/24 at 2200, Until Discontinued, Routine, Antibiotic Indication: Pneumonia - Community-acquired(CAP) New Bag 09/15/2024 8:21 AM CDT 100 mg 115 mL/ hr New Bag 09/14/2024 11:05 PM CDT 100 mg 115 mL/hr FLUoxetine (PROzac) capsule 40 mg 40 mg, Oral, DAILY AT BEDTIME, First dose on Thu09/13/24 at 0030, Until Discontinued, Routine, Previous Med: FLUoxetine (PROzac) 40 mg capsule - Orig Sig - Take 40 mg by mouth daily at bedtime. Given 09/14/2024 9:00 PM CDT 40 mg Given 09/13/2024 10:23 PM CDT 40 mg Given 09/13/2024 1:04 AM CDT 40 mg fluticasone furoate-vilanteroL (BREO ELLIPTA) 100-25 mcg/dose inhaler 1 Puff 1 Puff, Inhalation, DAILY RESPIRATORY, First dose on Thu09/13/24 at 0800, Until Discontinued, Routine Given 09/14/2024 7:44 AM CDT 1 Puff Given 09/13/2024 10:03 AM CDT 1 Puff furosemide (LASIX) tablet 40 mg 40 mg, Oral, DAILY, First dose on Thu09/13/24 at 0900, Until Discontinued, Routine Given 09/15/2024 8:17 AM CDT 40 mg Given 09/14/2024 8:27 AM CDT 40 mg Given 09/13/2024 9:59 AM CDT 40 mg glucagon HCL 1 mg/mL injection 1 mg 1 mg, IM, SEE ADMIN INSTRUCTIONS, Starting on Thu09/13/24 at 0048, Until Thu09/15/24 at 1432, Routine HYDROmorphone (PF) (DILAUDID) injection 0.3 mg 0.3 mg, IV, ONE TIME ONLY, 1 dose, On Thu09/12/24 at 2130, Routine Given 09/12/2024 10:18 PM CDT 0.3 mg HYDROmorphone (PF) (DILAUDID) injection 0.3 mg 0.3 mg, IV, ONE TIME ONLY, 1 dose, On Thu09/12/24 at 2245, Routine Given 09/12/2024 10:45 PM CDT 0.3 mg HYDROmorphone (PF) (DILAUDID) injection 0.3 mg 0.3 mg, IV, ONE TIME ONLY, 1 dose, On Thu09/15/24 at 1015, Routine Given 09/15/2024 11:26 AM CDT 0.3 mg HYDROmorphone (PF) (DILAUDID) injection 0.5 mg 0.5 mg, IV, EVERY 4 HOURS PRN, Starting on Thu09/13/24 at 0019, Until Thu09/14/24 at 1542, Pain, Moderate, Routine Given 09/14/2024 1:06 PM CDT 0.5 mg Given 09/14/2024 8:27 AM CDT 0.5 mg Given 09/13/2024 10:22 PM CDT 0.5 mg insulin glargine (LANTUS) injection 10 Units 10 Units, subCUT, ONE TIME ONLY, 1 dose, On Thu09/13/24 at 1000, Routine Given 09/13/2024 2:35 PM CDT 10 Units Abdomen, Left Upper Quadrant insulin glargine (LANTUS) injection 10 Units 10 Units, subCUT, ONE TIME ONLY, 1 dose, On Thu09/14/24 at 1615, Routine Given 09/14/2024 4:29 PM CDT 10 Units Arm, Left Upper insulin lispro (HumaLOG,ADMELOG) injection 0-12 Units 0-12 Units, subCUT, THREE TIMES DAILY WITH MEALS, First dose on Thu09/13/24 at 1200, Until Discontinued, Routine Given 09/15/2024 7:38 AM CDT 4 Units Arm, Left Upper Given 09/14/2024 4:29 PM CDT 12 Units A rm, Left Upper Given 09/14/2024 11:26 AM CDT 10 Units A rm, Right Upper insulin lispro (HumaLOG,ADMELOG) injection 0-6 Units 0-6 Units, subCUT, DAILY AT BEDTIME, First dose on Thu09/13/24 at 2100, Until Discontinued, Routine Given 09/14/2024 9:00 PM CDT 6 Units Arm, Left Upper Given 09/13/2024 10:23 PM CDT 6 Units A rm, Right Upper IPRATROPIUM 0.5 MG-ALBUTEROL 3 MG (2.5 MG BASE)/3 ML NEBULIZATION SOLN (CABINET OVERRIDE) 1 dose, Starting on Thu09/12/24 at 2116, Until Thu09/12/24 at 2119, Megan Armendariz E: cabinet override ipratropium-albuteroL (DUONEB) 0.5 mg-3 mg(2.5 mg base)/3 mL inhalation solution 3 mL 3 mL, Inhalation, ONE TIME ONLY RESPIRATORY, 1 dose, On Thu09/12/24 at 2130, Routine Given 09/12/2024 9:19 PM CDT 3 mL ipratropium-albuteroL (DUONEB) 0.5 mg-3 mg(2.5 mg base)/3 mL inhalation solution 3 mL 3 mL, Inhalation, EVERY 6 HOURS PRN RESPIRATORY, Starting on Thu09/13/24 at 0312, Until Thu09/15/24 at 1432, Shortness of Breath, Routine ipratropium-albuteroL (DUONEB) 0.5 mg-3 mg(2.5 mg base)/3 mL inhalation solution 3 mL 3 mL, Inhalation, EVERY 6 HOURS PRN RESPIRATORY, Starting on Thu09/13/24 at 1141, Until Thu09/15/24 at 1432, Shortness of Breath, Routine isosorbide mononitrate (IMDUR) SR 24 hour tablet 30 mg 30 mg, Oral, DAILY, First dose on Thu09/13/24 at 0900, Until Discontinued, Routine, Previous Med: isosorbide mononitrate (IMDUR) 30 mg Extended Release 24 hour tablet - Orig Sig - TAKE 1 TABLET BY MOUTH EVERY DAY Given 09/15/2024 8:17 AM CDT 30 mg Given 09/14/2024 8:28 AM CDT 30 mg Given 09/13/2024 9:58 AM CDT 30 mg Lidocaine 4 % topical patch 1 Patch 1 Patch, Topical, DAILY, First dose on Thu09/13/24 at 1145, Until Discontinued, Routine Applied 09/13/2024 12:25 PM CDT 1 Patch Back, Right LORazepam (ATIVAN) tablet 0.5 mg 0.5 mg, Oral, EVERY 8 HOURS PRN, Starting on Thu09/13/24 at 0018, Until Thu09/15/24 at 1432, Anxiety, Routine, Previous Med: LORazepam (ATIVAN) 0.5 mg tablet - Orig Sig - Take 1 Tablet (0.5 mg) by mouth every 8 hours as needed for Anxiety. Given 09/15/2024 2:44 AM CDT 0.5 mg methylPREDNISolone sodium succinate (SOLU-Medrol) 40 mg in sterile water 1 mL injection 40 mg, IV, DAILY, First dose on Thu09/14/24 at 0900, Until Discontinued, Routine Given 09/14/2024 8:28 AM CDT 40 mg naloxone (NARCAN) 0.4 mg/mL injection 0.1-0.4 mg 0.1-0.4 mg, IV, SEE ADMIN INSTRUCTIONS, Starting on Thu09/12/24 at 2306, Until Thu09/15/24 at 1432, Routine OLANZapine (ZyPREXA) tablet 10 mg 10 mg, Oral, DAILY AT BEDTIME, First dose on Thu09/13/24 at 0030, Until Discontinued, Routine, Previous Med: OLANZapine (ZyPREXA) 10 mg tablet - Orig Sig - Take 10 mg by mouth daily at bedtime. Given 09/14/2024 9:00 PM CDT 10 mg Given 09/13/2024 10:23 PM CDT 10 mg Given 09/13/2024 1:42 AM CDT 10 mg ondansetron (ZOFRAN) 4 mg/2 mL injection 4 mg 4 mg, IV, EVERY 6 HOURS PRN, Starting on Thu09/12/24 at 2306, Until Thu09/15/24 at 1432, Nausea/Emesis, Routine Given 09/13/2024 7:26 AM CDT 4 mg oxyCODONE-acetaminophen (PERCOCET) 5-325 mg per tablet 1 Tablet 1 Tablet, Oral, EVERY 6 HOURS PRN, Starting on Thu09/13/24 at 0018, Until Thu09/15/24 at 1432, Pain, Moderate, Routine, Previous Med: oxyCODONE-acetaminophen (PERCOCET) 5-325 mg tablet - Orig Sig - Take 1 Tablet by mouth every 6 hours as needed. Given 09/15/2024 5:39 AM CDT 1 Tablet Given 09/14/2024 10:56 PM CDT 1 Tablet Given 09/14/2024 4:30 PM CDT 1 Tablet predniSONE (DELTASONE) tablet 40 mg 40 mg, Oral, DAILY WITH BREAKFAST, First dose on Thu09/13/24 at 0800, Until Discontinued, Routine Given 09/13/2024 9:58 AM CDT 40 mg predniSONE (DELTASONE) tablet 40 mg 40 mg, Oral, DAILY WITH BREAKFAST, First dose on Thu09/15/24 at 0800, Until Discontinued, Routine Given 09/15/2024 8:17 AM CDT 40 mg ranolazine ER (RANEXA) SR 12 hour tablet 500 mg 500 mg, Oral, EVERY 12 HOURS, First dose on Thu09/13/24 at 0030, Until Discontinued, Routine, Previous Med: ranolazine ER (RANEXA) 500 mg Extended Release 12 hour tablet - Orig Sig - Take 1 Tablet (500 mg) by mouth every 12 hours. Given 09/15/2024 12:30 AM CDT 500 mg Given 09/14/2024 1:09 PM CDT 500 mg Given 09/14/2024 12:19 AM CDT 500 mg sodium chloride 0.9 % flush bag 25 mL 25 mL, IV, SEE ADMIN INSTRUCTIONS, Starting on Thu09/12/24 at 2306, Until Thu09/15/24 at 1432, Routine sodium chloride 0.9 % infusion IV, at 100 mL/hr, CONTINUOUS, Starting on Thu09/14/24 at 1900, Until Thu09/15/24 at 1432, Routine New Bag 09/14/2024 9:07 PM CDT 100 mL/hr sodium chloride flush injection 10 mL 10 mL, IV, EVERY 12 HOURS (BlD), First dose on Thu09/12/24 at 2315, Until Discontinued, Routine Given 09/15/2024 8:17 AM CDT 10 mL Given 09/14/2024 9:03 PM CDT 10 mL Given 09/14/2024 9:21 AM CDT 10 mL sodium chloride flush injection 10 mL 10 mL, IV, SEE ADMIN INSTRUCTIONS, Starting on Thu09/12/24 at 2306, Until Thu09/15/24 at 1432, Routine Given 09/14/2024 1:07 PM CDT 10 mL umeclidinium (INCRUSE ELLIPTA) 62.5 mcg/actuation inhaler 1 Puff 1 Puff, Inhalation, DAILY RESPIRATORY, First dose on Thu09/13/24 at 0800, Until Discontinued, Routine Given 09/14/2024 7:44 AM CDT 1 Puff Given 09/13/2024 10:03 AM CDT 1 Puff documented in this encounter Active and Recently Administered Medications Times are shown in CDT. Scheduled Medication Order 09/13/2024 09/14/2024 09/15/2024 amLODIPine (NORVASC) tablet 2.5 mg 2.5 mg, Oral, DAILY LATE, First dose on Thu09/13/24 at 1700, Until Discontinued, Routine, Previous Med: amLODIPine (NORVASC) 2.5 mg tablet - Orig Sig - Take 2.5 mg by mouth late in the day. 1748 (Given - Provider: Keily Larios RN) 1645 (Given - Provider: Esdras Traore RN) aspirin (CARTER CHEWABLE) chewable tablet 81 mg 81 mg, Oral, DAILY, First dose on Thu09/13/24 at 0900, Until Discontinued, Routine, Previous Med: aspirin (CARTER CHEWABLE) 81 mg Tablet, Chewable - Orig Sig - Take 81 mg by mouth daily. 0958 (Given - Provider: Keily Larios RN) 08 (Given - Provider: Esdras Troare RN) 0817 (Given - Provider: SYLVIA Loyd) atorvastatin (LIPITOR) tablet 40 mg 40 mg, Oral, DAILY AT BEDTIME, First dose on Thu09/13/24 at 0030, Until Discontinued, Routine, Previous Med: atorvastatin (LIPITOR) 40 mg tablet - Orig Sig - Take 40 mg by mouth daily at bedtime. 0104 (Given - Provider: Tawanna Khan LPN)2223 (Given - Provider: Tawanna Khan LPN) 2100 (Given - Provider: Tawanna Khan LPN) buPROPion HCL (WELLBUTRIN XL) 24 hour tablet 300 mg 300 mg, Oral, DAILY, First dose on Thu09/13/24 at 0900, Until Discontinued, Routine, Previous Med: buPROPion HCL (WELLBUTRIN XL) 300 mg Extended Release 24 hour tablet - Orig Sig - Take 1 Tablet by mouth daily. 0958 (Given - Provider: Keily Larios RN) 0828 (Given - Provider: Esdras Traore RN) 0817 (Given - Provider: SYLVIA Loyd) cefTRIAXone (ROCEPHIN) 2,000 mg in sodium chloride 0.9% 50 mL IVPB (MBP) 2,000 mg, IV, EVERY 24 HOURS (DAILY), First dose on Thu09/13/24 at 1430, Until Discontinued, Routine, Antibiotic Indication: Urinary Tract Infection(UTI) / Infection 1552 (New Bag - Provider: Keily Larios RN)1622 (Stopped - Provider: Keily Larios RN) 1311 (New Bag - Provider: Esdras Traore RN)1341 (Stopped - Provider: Esdras Traore RN) 1300 (Refused - Provider: SYLVIA Loyd) dextrose 5 % - sodium chloride 0.9 % infusion IV, at 40 mL/hr, SEE ADMIN INSTRUCTIONS, Starting on Thu09/13/24 at 0048, Until Thu09/15/24 at 1432, Routine dextrose 5 % in water 250 mL flush bag 25 mL 25 mL, IV, SEE ADMIN INSTRUCTIONS, Starting on Thu09/12/24 at 2306, Until Thu09/15/24 at 1432, Routine dextrose 50% (D50) syringe 12.5 Gram 12.5 Gram, IV, SEE ADMIN INSTRUCTIONS, Starting on Thu09/13/24 at 0048, Until [place] 09/15/24 at 1432, Routine dextrose 50% (D50) syringe 25 Gram 25 Gram, IV, SEE ADMIN INSTRUCTIONS, Starting on Thu09/13/24 at 0048, Until Thu09/15/24 at 1432, Routine doxycycline hyclate (VIBRAMYCIN) 100 mg in sodium chloride 0.9% 100 mL IVPB (MBP) 100 mg, IV, EVERY 12 HOURS (BlD), First dose on Thu09/14/24 at 2200, Until Discontinued, Routine, Antibiotic Indication: Pneumonia - Community-acquired(CAP) 2305 (New Bag - Provider: Shamika Rojas RN) 0005 (Stopped - Provider: Tawanna Khan LPN)0821 (New Bag - Provider: SYLVIA Loyd)0921 (Stopped - Provider: SYLVIA Loyd) FLUoxetine (PROzac) capsule 40 mg 40 mg, Oral, DAILY AT BEDTIME, First dose on Thu09/13/24 at 0030, Until Discontinued, Routine, Previous Med: FLUoxetine (PROzac) 40 mg capsule - Orig Sig - Take 40 mg by mouth daily at bedtime. 0104 (Given - Provider: Tawanna Khan LPN)2223 (Given - Provider: Tawanna Khan LPN) 2100 (Given - Provider: Tawanna Khan LPN) fluticasone furoate-vilanteroL (BREO ELLIPTA) 100-25 mcg/dose inhaler 1 Puff 1 Puff, Inhalation, DAILY RESPIRATORY, First dose on Thu09/13/24 at 0800, Until Discontinued, Routine 1003 (Given - Provider: Keily Larios RN) 0744 (Given - Provider: Esdras Traore RN) 0800 (Refused - Provider: SYLVIA Loyd) furosemide (LASIX) tablet 40 mg 40 mg, Oral, DAILY, First dose on Thu09/13/24 at 0900, Until Discontinued, Routine 0959 (Given - Provider: Keily Larios RN) 0827 (Given - Provider: Esdras Traore RN) 0817 (Given - Provider: SYLVIA Loyd) glucagon HCL 1 mg/mL injection 1 mg 1 mg, IM, SEE ADMIN INSTRUCTIONS, Starting on Thu09/13/24 at 0048, Until Thu09/15/24 at 1432, Routine HYDROmorphone (PF) (DILAUDID) injection 0.3 mg (COMPLETED) 0.3 mg, IV, ONE TIME ONLY, 1 dose, On Thu09/15/24 at 1015, Routine 1126 (Given - Provider: SYLVIA Loyd) insulin glargine (LANTUS) injection 10 Units (COMPLETED) 10 Units, subCUT, ONE TIME ONLY, 1 dose, On Thu09/13/24 at 1000, Routine 1435 (Given - Provider: Keily Larios RN - Comment: medication not on floor at due time) insulin glargine (LANTUS) injection 10 Units (COMPLETED) 10 Units, subCUT, ONE TIME ONLY, 1 dose, On Thu09/14/24 at 1615, Routine 1629 (Given - Provider: Esdras Traore RN - Comment: [phone]) insulin lispro (HumaLOG,ADMELOG) injection 0-12 Units 0-12 Units, subCUT, THREE TIMES DAILY WITH MEALS, First dose on Thu09/13/24 at 1200, Until Discontinued, Routine 1200 (Not Given - Provider: Keily Larios RN - Reason: Other - See Comment - Comment: Pt not eating)1747 (Given - Provider: Keily Larios RN) 0800 (Not Given - Provider: Esdras Traore RN - Reason: Lab results / vitals - Comment: [phone] (Given - Provider: Esdras Traore RN - Comment: [phone] (Given - Provider: Esdras Traore RN - Comment: [phone]) 0738 (Given - Provider: SYLVIA Loyd)1200 (Refused - Provider: SYLVIA Loyd) insulin lispro (HumaLOG,ADMELOG) injection 0-6 Units 0-6 Units, subCUT, DAILY AT BEDTIME, First dose on Thu09/13/24 at 2100, Until Discontinued, Routine 2223 (Given - Provider: Tawanna Khan LPN) 2100 (Given - Provider: Tawanna Khan LPN) isosorbide mononitrate (IMDUR) SR 24 hour tablet 30 mg 30 mg, Oral, DAILY, First dose on Thu09/13/24 at 0900, Until Discontinued, Routine, Previous Med: isosorbide mononitrate (IMDUR) 30 mg Extended Release 24 hour tablet - Orig Sig - TAKE 1 TABLET BY MOUTH EVERY DAY 0958 (Given - Provider: Keily Larios RN) 0828 (Given - Provider: Esdras Traore RN) 0817 (Given - Provider: SYLVIA Loyd) Lidocaine 4 % topical patch 1 Patch 1 Patch, Topical, DAILY, First dose on Thu09/13/24 at 1145, Until Discontinued, Routine 1225 (Applied - Provider: Keily Larios RN) 0025 (Refused - Provider: Tawanna Khan LPN)0900 (Refused - Provider: Esdras Traore RN) 0900 (Refused - Provider: SYLVIA Loyd) methylPREDNISolone sodium succinate (SOLU-Medrol) 40 mg in sterile water 1 mL injection (CANCELED) 40 mg, IV, DAILY, First dose on Thu09/14/24 at 0900, Until Discontinued, Routine 0828 (Given - Provider: Esdras Traore RN) naloxone (NARCAN) 0.4 mg/mL injection 0.1-0.4 mg 0.1-0.4 mg, IV, SEE ADMIN INSTRUCTIONS, Starting on Thu09/12/24 at 2306, Until Thu09/15/24 at 1432, Routine OLANZapine (ZyPREXA) tablet 10 mg 10 mg, Oral, DAILY AT BEDTIME, First dose on Thu09/13/24 at 0030, Until Discontinued, Routine, Previous Med: OLANZapine (ZyPREXA) 10 mg tablet - Orig Sig - Take 10 mg by mouth daily at bedtime. 0142 (Given - Provider: Tawanna Khan LPN)2223 (Given - Provider: Tawanna Khan LPN) 2100 (Given - Provider: Tawanna Khan LPN) predniSONE (DELTASONE) tablet 40 mg (CANCELED) 40 mg, Oral, DAILY WITH BREAKFAST, First dose on Thu09/13/24 at 0800, Until Discontinued, Routine 0958 (Given - Provider: Keily Larios RN) predniSONE (DELTASONE) tablet 40 mg 40 mg, Oral, DAILY WITH BREAKFAST, First dose on Thu09/15/24 at 0800, Until Discontinued, Routine 0817 (Given - Provider: SYLVIA Loyd) ranolazine ER (RANEXA) SR 12 hour tablet 500 mg 500 mg, Oral, EVERY 12 HOURS, First dose on Thu09/13/24 at 0030, Until Discontinued, Routine, Previous Med: ranolazine ER (RANEXA) 500 mg Extended Release 12 hour tablet - Orig Sig - Take 1 Tablet (500 mg) by mouth every 12 hours. 0142 (Given - Provider: Tawanna Khan LPN)1227 (Given - Provider: Keily Larios RN) 0019 (Given - Provider: Tawanna Khan LPN)1309 (Given - Provider: Esdras Traore RN) 0030 (Given - Provider: Tawanna Khan LPN)1230 (Refused - Provider: SYLVIA Loyd) sodium chloride 0.9 % flush bag 25 mL 25 mL, IV, SEE ADMIN INSTRUCTIONS, Starting on Thu09/12/24 at 2306, Until Thu09/15/24 at 1432, Routine sodium chloride flush injection 10 mL 10 mL, IV, EVERY 12 HOURS (BlD), First dose on Thu09/12/24 at 2315, Until Discontinued, Routine 0105 (Given - Provider: Tawanna Khan LPN)1000 (Given - Provider: Keily Larios RN)2223 (Given - Provider: Tawanna Khan LPN) 0921 (Given - Provider: Esdras Traore RN)2103 (Given - Provider: Tawanna Khan LPN) 0817 (Given - Provider: SYLVIA Loyd) sodium chloride flush injection 10 mL 10 mL, IV, SEE ADMIN INSTRUCTIONS, Starting on Thu09/12/24 at 2306, Until Thu09/15/24 at 1432, Routine 1307 (Given - Provider: Esdras Traore RN) umeclidinium (INCRUSE ELLIPTA) 62.5 mcg/actuation inhaler 1 Puff 1 Puff, Inhalation, DAILY RESPIRATORY, First dose on Thu09/13/24 at 0800, Until Discontinued, Routine 1003 (Given - Provider: Keily Larios RN) 0744 (Given - Provider: Esdras Traore RN) 0800 (Refused - Provider: SYLVIA Loyd) warfarin (COUMADIN) tablet 10 mg 10 mg, Oral, DAILY LATE, First dose on Thu09/13/24 at 1700, Until Discontinued, Routine, Previous Med: warfarin (COUMADIN) 10 mg tablet - Orig Sig - Take 1 Tablet by mouth daily. , Indication: TREATMENT for VTE/PE/DVT, Goal INR: 2 to 3 1135 (Held by Provider - Provider: Peña Mata MD - Reason: Upcoming procedure / test)1700 (Automatically Held) 1700 (Automatically Held)2204 (Order Unhold - Provider: Michael Tovar MD) Continuous Medication Order 09/13/2024 09/14/2024 09/15/2024 sodium chloride 0.9 % infusion IV, at 100 mL/hr, CONTINUOUS, Starting on Thu09/14/24 at 1900, Until Thu09/15/24 at 1432, Routine 2107 (New Bag - Provider: Tawanna Khan LPN) 1432 (Due: Order Ending - Provider: PROVIDER, DISCHARGE PATIENT - Comment: [Order ends at this time. Document the following action when infusion is complete: Stopped]) PRN Medication Order 09/13/2024 09/14/2024 09/15/2024 acetaminophen (TYLENOL) tablet 650 mg 650 mg, Oral, EVERY 6 HOURS PRN, Starting on Thu09/12/24 at 2306, Until Thu09/15/24 at 1432, Other (See Comment), See admin instructions, Routine calcium as CARBONATE (TUMS) 500 mg (200 mg elemental) chewable tablet 400 mg 400 mg, Oral, EVERY 6 HOURS PRN, 2 doses, Starting on Thu09/12/24 at 2306, Until [place] 09/15/24 at 1432, Dyspepsia, Routine dextromethorphan-guaiF ENesin (ROBITUSSIN DM) 10-100 mg/5 mL oral solution 10 mL 10 mL, Oral, EVERY 4 HOURS PRN, Starting on Thu09/13/24 at 0019, Until Thu09/15/24 at 1432, Cough, to thin mucus and quiet cough, Routine HYDROmorphone (PF) (DILAUDID) injection 0.5 mg (CANCELED) 0.5 mg, IV, EVERY 4 HOURS PRN, Starting on Thu09/13/24 at 0019, Until Thu09/14/24 at 1542, Pain, Moderate, Routine 0105 (Given - Provider: Tawanna Khan LPN)0523 (Given - Provider: Tawanna Khan LPN)1012 (Given - Provider: Keily Larios RN)1450 (Given - Provider: Keily Larios RN)2222 (Given - Provider: Tawanna Khan LPN) 0827 (Given - Provider: Esdras Traore RN)1306 (Given - Provider: Esdras Traore RN) ipratropium-albuteroL (DUONEB) 0.5 mg-3 mg(2.5 mg base)/3 mL inhalation solution 3 mL(Linked Group 1) 3 mL, Inhalation, EVERY 6 HOURS PRN RESPIRATORY, Starting on Thu09/13/24 at 0312, Until Thu09/15/24 at 1432, Shortness of Breath, Routine ipratropium-albuteroL (DUONEB) 0.5 mg-3 mg(2.5 mg base)/3 mL inhalation solution 3 mL 3 mL, Inhalation, EVERY 6 HOURS PRN RESPIRATORY, Starting on Thu09/13/24 at 1141, Until Thu09/15/24 at 1432, Shortness of Breath, Routine LORazepam (ATIVAN) tablet 0.5 mg 0.5 mg, Oral, EVERY 8 HOURS PRN, Starting on Thu09/13/24 at 0018, Until Thu09/15/24 at 1432, Anxiety, Routine, Previous Med: LORazepam (ATIVAN) 0.5 mg tablet - Orig Sig - Take 1 Tablet (0.5 mg) by mouth every 8 hours as needed for Anxiety. 0244 (Given - Provider: Tawanna Khan LPN) ondansetron (ZOFRAN) 4 mg/2 mL injection 4 mg 4 mg, IV, EVERY 6 HOURS PRN, Starting on Thu09/12/24 at 2306, Until Thu09/15/24 at 1432, Nausea/Emesis, Routine 0726 (Given - Provider: Keily Larios RN) oxyCODONE-acetaminophe n (PERCOCET) 5-325 mg per tablet 1 Tablet 1 Tablet, Oral, EVERY 6 HOURS PRN, Starting on Thu09/13/24 at 0018, Until [place] 09/15/24 at 1432, Pain, Moderate, Routine, Previous Med: oxyCODONE-acetaminophe n (PERCOCET) 5-325 mg tablet - Orig Sig - Take 1 Tablet by mouth every 6 hours as needed. 1317 (Given - Provider: Keily Larios RN)1939 (Given - Provider: Tawanna Khan LPN) 0607 (Given - Provider: Tawanna Khan LPN)163 (Given - Provider: Esdras Traore RN)20[facility] Tawanna Khan LPN[facility]2256 (Given - Provider: Shamika Rojas RN) 0539 (Given - Provider: Tawanna Khan LPN) Linked Groups Order Group 1: ipratropium-albuteroL (DUONEB) 0.5 mg-3 mg(2.5 mg base)/3 mL inhalation solution 3 mLJump to med 3 mL, Inhalation, EVERY 6 HOURS PRN RESPIRATORY, Starting on Thu09/13/24 at 0312, Until [place] 09/15/24 at 1432, Shortness of Breath, Routine And albuterol (PROVENTIL,VENTOLIN) 2.5 mg /3 mL (0.083 %) inhalation solution 2.5 mg (CANCELED) 2.5 mg, Inhalation, EVERY 6 HOURS PRN RESPIRATORY, Starting on Thu09/13/24 at 0312, Until Thu09/13/24 at 1141, Shortness of Breath, Wheezing, Routine documented in this encounter Additional Health Concerns Active Problems Noted Date Diagnosed Date Heart Failure Problem 05/12/2024 Infection Onset Date Last Indicated Resolved Time R/O Respiratory 09/12/2024 09/12/2024 09/13/2024 1 2:31 AM CDT R/O GI Pathogen 09/13/2024 09/13/2024 09/14/2024 8 :37 AM CDT documented as of this encounter Care Teams Mail Messenger Contractor Relationship Specialty Start Date End Date Delta Wade MD [address] [address] PCP - General Family Practice 03/25/24 documented as of this encounter
--- OUTSIDE RECORDS SUMMARY | 2024-09-16 23:40 | XMS_ITS | Encounter Summary ---
Author Organization [facility] Address [address] [place] [address] Care Team Providers Care Insulation Worker Furnace Installer Name Role Phone Delta Wade MD Primary Care Provider [phone] Reason for Visit * Reason Comments Shortness of Breath C/o SOB denies fever . + home O2 3lpm. + leg swelling. Just released yesterday. Per brother pt will ask the same questions and is confused Encounter Details Date Type Department Care Team (Late st Contact Info) Description 09/16/2024 11:40 PM CDT - 09/16/2024 11:41 PM CDT Emergency [facility] Emergency Department [address] [place] [address] Discharge Disposition: Left without being [...] often do you attend chur ch or holiness services? 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),Oxygen dependent Face to Face completed within 30 days: yes Length of Need: 99 months By: Nasal Cannula Continuously at 3 L/min. 1 Each 08/27/2023 TechLITE Pen Needle 29 gauge x 1/2 Needle USE directed with Victoza. 12/29/2022 naloxone (NARCAN) 4 mg/spray [place], Non-Aerosol EMERGENCY USE ONLY: Administer 1 spray (4 mg) in one nostril one time. May repeat in alternating nostrils every 2-3 min until responsive or EMS arrives. 2 Each 3 01/06/2023 blood sugar diagnostic StripIndications: Type 2 diabetes mellitus without complication, without long-term current use of insulin ([facility]) Use to test blood glucose up to QID PRN symptoms. 100 Each 11 12/17/2022 OneTouch Delica Plus Lancet 30 gauge USE TO test fasting blood glucose DAILY 11/04/2022 Blood-Glucose Meter KitIndications:Ty pe 2 diabetes mellitus without complication, without long-term current use of insulin ([facility]) Use to test blood glucose up to TID PRN symptoms. 1 Each 12/02/2022 documented as of this encounter ED Notes * Winsome Steward, RN - 09/16/2024 11:38 PM CDT LWBS after triage. Pt went to [facility] and called 911 and came back to let this nurse know she needed to be signed out so she could go to [facility]. Pt did refuse blood work because [...] 09/22/2024 10:00 AM CDT Office Visit [facility] Neurosurgery [address] [place] [address] Jerson Salas PA [address] [place] [address] 10/06/2024 4:00 PM CDT Office Visit [facility] Pulmonology [address] [place] [address] Cristian Metcalf FNP [address] [place] [address] documented as of this encounter [...] documented as of this encounter Care Teams Insulation Worker Furnace Installer Relationship Specialty Start Date End Date Delta Wade MD [address] [address] PCP - General Family Practice 03/25/24 documented as of this encounter
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
--- OUTSIDE RECORDS SUMMARY | 2024-09-18 16:43 | XMS_ITS ---
Author Organization [facility] Address [address] [place] [address] Phone Care Team Providers Care Eating Disorder Specialist Name Role Phone Delta Wade MD Primary Care Provider [phone] Active Problems Problem Noted Date Diagnosed Date [...] 06/14/2019 H/O vaginal surgery 06/14/2019 Atherosclerosis of [place] co ronary artery of [place] heart without angina pectoris 06/14/2019 Urinary incontinence [...]
--- OUTSIDE RECORDS SUMMARY | 2024-09-18 16:44 | XMS_ITS | Encounter Summary ---
Author Organization [facility] Address [address] [place] [address] Care Team Providers Care Supervisor Respiratory Name Role Phone Delta Wade MD Primary Care Provider [phone] Reason for Visit * Reason Comments Hospital Follow Up Encounter Details Date Type Department Care Team (Late st Contact Info) Description 05/13/2024 Telephone [facility] Medicine [place] [address] [place] [address] Kay Lima, [facility] [address] [place] [address] Hospital Follow Up Social History [...] often do you attend chur ch or synagogue services? 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 Could not leave voicemail. If patient calls back please schedule for hospital follow up appointment for the next opening spot. Can be vv if patient cannot travel to clinic. ULTANT TEACHER * Telephone Encounter - Gypsy Gerber - 05/13/2024 12:02 PM CST Copied from [facility] #[id number]. Topic: Reschedule/Cancel Appointment/Late Arrival >> May 13, [...] of hospital discharge? 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LT[facility] documented in this encounter Plan of Treatment Upcoming Encounters Date Type Department Care Team (Late st Contact Info) Description 09/22/2024 10:00 AM CDT Office Visit [facility] Neurosurgery [address] [place] [address] Jerson Salas PA [address] [place] [address] 10/06/2024 4:00 PM CDT Office Visit [facility] Pulmonology [address] [place] [address] Cristian Metcalf FNP [address] [place] [id number] documented as of this encounter Goals Goal [...] R/O COVID-19 05/13/2024 05/13/2024 05/14/2024 4:15 AM CONSULTANT TEACHER R/O Respiratory 06/30/2024 06/30/2024 06/30/2024 1 0:36 [...] documented as of this encounter Care Teams Supervisor Respiratory Relationship Specialty Start Date End Date Delta Wade MD [address] [address] PCP - General Family Practice 03/25/24 documented as of this encounter
--- OUTSIDE RECORDS SUMMARY | 2024-09-18 16:44 | XMS_ITS | Encounter Summary ---
Author Organization [facility] Address [address] [place] [address] Care Team Providers Care Director Of Retail Operations Name Role Phone Delta Wade MD Primary Care Provider [phone] Encounter Details Date Type Department Care Team (Late st Contact Info) Description 06/16/2024 Telephone [facility] Ophthalmology [address] [place] [address] Eduardo Craven MD [address] [place] [address] Social History Tobacco Use Types Packs/Day [...] How often do you attend chur or restoration services? 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 Gender Identity Not on file Sexual Orientation [...] Description 09/22/2024 10:00 AM CDT Office Visit [facility] Neurosurgery [address] [place] [address] Jerson Salas, ANDERS [address] [place] [address] 10/06/2024 4:00 PM CDT Office Visit [facility] Pulmonology [address] [place] [address] Cristian Metclaf, [place] [address] [place] [address] documented as of this encounter [...] documented as of this encounter Care Teams Director Of Retail Operations Relationship Specialty Start Date End Date Delta Wade MD [address] [place] [id number] PCP - General Family Practice 03/25/24 documented as of this encounter
--- OUTSIDE RECORDS SUMMARY | 2024-09-18 16:44 | XMS_ITS | CCD ---
Author Name Interface, [id number] Address [address] [facility] [place] [address] [facility] Address [address] [place] [address] Care Team Providers Care Explosive Operator Fuse Name Role Phone Anika VALLADARES, Allen Unavailable Unavailable Allergies and Adverse Reactions Medication/Group Name Reaction Severity Date NSAIDS (Non-Steroidal Anti-Inflammatory Drug) 09/05/2014 ketorolac tromethamine 09/05 propoxyphene HCl 09/05/2014 prochlorperazine maleate Opioids-Methadone and Related 09/05/2014 Salicylates 09/05/2014 propoxyphene 09/05/2014 Phenothiazines 09/05/2014 Reason for Visit Medications Date Name Route Dose Frequency Instructions Start Date End Date Status 015 Temazepam Oral PO 1.0 CAPSULE(S) QHS 015 active 015 Promethazine Oral PO 1.0 TABLET(S) TID PRN nausea 015 active 015 Fluoxetine Oral PO 1.0 CAPSULE(S) daily 015 active 015 Lorazepam Oral PO 1.0 TABLET(S) TID PRN nausea 015 active 015 Naproxen Oral PO 1.0 TABLET(S) BID PRN 015 active 015 Oxycodone-Aceta minophen Oral 5 mg-325 mg PO 1.0 TABLET(S) Q12H PRN pain 015 active 015 Metoprolol Oral (Tartrate) PO 25.0 MG BID 015 active 015 Potassium Chloride Oral ER Cap PO 1.0 CAPSULE(S), SUSTAINED ACTION daily 015 active 015 Quetiapine Oral PO 1.0 TABLET(S) bid 015 active Problems Diagnosis Status Date of Diagnosis Resolution Date Hemochromatosis (disorder) Active Social History Date Name Value Sex Female
--- OUTSIDE RECORDS SUMMARY | 2024-09-18 16:44 | XMS_ITS | Encounter Summary ---
Author Organization [facility] Address [address] [place] [address] Care Team Providers Care Warehouse Director Name Role Phone Delta Wade MD Primary Care Provider [phone] Encounter Details Date Type Department Care Team (Latest Contact Info) Description 08/04/2024 Results Follow-Up [facility] Emergency Department [address] [place] [address] Ayana Roman RN BLOOD CULTURE, [...] Never 06/13/2019 How often do you attend [facility] or buddhist services? 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 Gender Identity Not on file Sexual Orientation Not on file documented as of this encounter Plan of Treatment Upcoming Encounters Date Type Department Care Team (Late st Contact Info) Description 09/22/2024 10:00 AM CDT Office Visit [facility] Neurosurgery [address] [place] [address] Jerson Salas, ANDERS [address] [place] [address] 10/06/2024 4:00 PM CDT Office Visit [facility] Pulmonology [address] [place] [address] Cristian Metcalf, [place] [address] [place] [address] documented as of this encounter [...] documented as of this encounter Care Teams Warehouse Director Relationship Specialty Start Date End Date Delta Wade MD [address] [address] PCP - General Family Practice 03/25/24 documented as of this encounter
--- OUTSIDE RECORDS SUMMARY | 2024-09-18 16:44 | XMS_ITS | Clinical Summary ---
Author Organization [facility] Address [address] [place] [address] Phone Care Team Providers Care Grease Maker Head Name Role Phone Delta Wade MD Primary Care Provider [phone] Allergies Active Allergy Reactions Criticality Noted Date [...] complication, without long-term current use of insulin ([facility]) Use to test blood glucose up to TID PRN symptoms. 1 Each 12/03/19 23 Active blood sugar diagnostic StripIndication s:Type 2 diabetes mellitus without complication, without long-term current use of insulin ([facility]) Use to test blood glucose up to QID PRN symptoms. 100 Each 11 12/18/19 Active TechLITE Pen Needle 29 gauge x 1/2 Needle USE directed with Victoza. 12/30/19 Active naloxone (NARCAN) 4 mg/spray [place], Non-Aerosol EMERGENCY USE ONLY: Administer 1 spray [...] 06/14/2019 H/O vaginal surgery 06/14/2019 Atherosclerosis of [place] co ronary artery of [place] heart without angina pectoris 06/14/2019 Urinary incontinence [...] CDT - 09/16/2024 11:41 PM CDT Emergency [facility] Emergency Department [address] [place] [phone] Discharge Disposition: Left without being seen 09/12/2024 9:13 PM CDT - 09/15/2024 12:26 PM CDT Hospital Encounter [facility] 4B Cardiac [address] [place] [address] Robbie Yen, DO Baig, MD Esperanza Soto, MD La Perez, Michael Mathew MD COPD exacerbation ([facility]/HCC) Discharge Disposition: Home or Self Care 09/10/2024 8:59 PM CDT - 09/11/2024 12:42 AM CDT Emergency [facility] Emergency Department [address] [place] [phone] Layton Barrow MD Chronic hypoxemic respiratory failure ([facility]) (Primary Dx); Type 2 diabetes mellitus with hyperglycemia, with long-term current use of insulin ([facility]); Pulmonary emphysema, unspecified emphysema type ([facility]) Discharge Disposition: Home or Self Care 09/10/2024 12:46 PM CDT - 09/10/2024 11:59 PM CDT Hospital Encounter [facility] [address] [place] [address] Don Causey DO Discharge Disposition: Home or Self Care 09/10/2024 11:40 AM CDT - 09/10/2024 11:59 PM CDT Hospital Encounter [facility] [place] [address] [place] [address] Don Causey, Discharge Disposition: Home or Self Care 09/09/2024 10:42 PM CDT - 09/09/2024 10:46 PM CDT Emergency [facility] Emergency Department [address] [place] [phone] Discharge Disposition: Left without being seen 09/09/2024 5:38 AM CDT - 09/09/2024 12:01 PM CDT Emergency [facility] [address] [place] [phone] Cassius Sanderson MD Acute on chronic congestive heart failure, unspecified heart failure type ([facility]) (Primary Dx) Discharge Disposition: Home or Self Care 09/09/2024 Travel 09/01/2024 Orders Only [facility] Neurosurgery [address] [place] [phone] Jerson Salas PA Closed fracture of first lumbar vertebra, unspecified fracture morphology, initial encounter ([facility]) (Primary Dx) 08/29/2024 7:55 PM CDT - 08/30/2024 2:43 PM CDT Emergency [facility] Emergency [facility] [address] [place] [phone] Danitza Wayne MD Mady, Mohamed Hamdy Ahmed Mohamed, MD COPD with exacerbation ([facility]) (Primary Dx) Discharge Disposition: Home or Self Care 08/23/2024 Telephone [facility] [place] [place] [address] [place] [phone] Veronika Yusuf RN Anticoagulation 08/22/2024 4:18 PM CDT - 08/26/2024 6:26 PM CDT Hospital Encounter [facility] 4A Cardiac [address] [place] [phone] Austin Robertson MD Abbas, MD Lacie Soto Abhaya, MD COPD exacerbation ([facility]) Discharge Disposition: Home or Self Care 08/22/2024 Travel 08/20/2024 9:19 PM CDT - 08/20/2024 9:22 PM CDT Emergency [facility] [address] [place] [phone] Discharge Disposition: Left without being seen 08/20/2024 Travel 08/18/2024 2:20 AM CDT - 08/18/2024 3:03 PM CDT Hospital Encounter [facility] 4B Cardiac [address] [place] [address] Danny Mclean MD Gibert, MD Safia Lagunas, MD La Soto, Michael Mathwe MD Back pain Discharge Disposition: Home or Self Care 08/16/2024 Telephone [facility] [address] [place] [address] Veronika Yusuf, RN Anticoagulation 08/14/2024 6:00 PM CDT - 08/16/2024 1:22 PM CDT Hospital Encounter [facility] 4B Cardiac [address] [place] [address] Aki Booth, DO Baig, MD Rajesh Soto Lisa K, MD Kaur, MD Trini Closed compression fracture of body of L1 vertebra (CMS/HCC) Discharge Disposition: Home or Self Care 08/07/2024 8:18 PM CDT - 08/07/2024 8:45 PM CDT Emergency [facility] [address] [place] [address] Discharge Disposition: Left Against Medical Advice 08/05/2024 Telephone [facility] [address] [place] [address] Veronika Yusuf, RN Anticoagulation 08/04/2024 3:41 AM CDT - 08/06/2024 4:06 PM CDT Hospital Encounter [facility] 7B Medical Surgical [address] [place] [address] Danny Mclean MD Abbas, MD Alirio Soto, MD Regi Phelps, Kapil Johnson, Acute on chronic respiratory failure with hypoxia and hypercapnia (CMS/HCC) Discharge Disposition: Home or Self Care 08/04/2024 Results Follow-Up [facility] [address] [place] [phone] Ayana Roman, RN BLOOD CULTURE, BLOOD CULTURE 08/04/2024 Travel 08/02/2024 8:48 PM CDT - 08/03/2024 3:51 AM CDT Emergency [facility] [address] [place] [phone] Dung Bui MD Shortness of breath (Primary Dx); Bilateral arm pain Discharge Disposition: Home or Self Care 08/02/2024 Travel 07/29/2024 Telephone [facility] [address] [place] [phone] Veronika Yusuf, RN Anticoagulation 07/28/2024 3:26 PM CDT - 07/31/2024 11:57 AM CDT Hospital Encounter [facility] 6B Medical Surgical [address] [place] [address] Aki Briceno, Efraín Keys, Jennifer Tamez MD Pneumonia of left lower lobe due to infectious organism Discharge Disposition: Home or Self Care 07/28/2024 Travel 07/22/2024 Telephone [facility] [address] [place] [phone] Veronika Yusuf, RN Anticoagulation 07/21/2024 1:24 PM CDT - 07/25/2024 3:15 PM CDT Hospital Encounter [facility] 6B Medical Surgical [address] [place] [phone] Abel Singletary MD Abbas, Muhammad Khalid, MD Syed, Hejab, MD COPD exacerbation ([facility]) Discharge Disposition: Home or Self Care 07/20/2024 6:10 PM CDT Anesthesia Event [facility] Operating Room [address] [place] [phone] Aki Garcia MD 07/20/2024 5:10 PM CDT - 07/20/2024 6:14 PM CDT Surgery [facility] [address] [place] [address] Tereso Gil, DPPio TOE(S) ARTHROPLASTY 07/20/2024 1:44 PM CDT - 07/20/2024 7:52 PM CDT Hospital Encounter [facility] 3J Pre-Op [address] [place] [address] Tereso Gil, DPM Hammertoe of left foot Discharge Disposition: Home or Self Care 07/19/2024 Telephone [facility] [address] [place] [phone] Tereso Gil, DPM Information (PRE-OP INSTRUCTIONS AND ARRIVAL TIME) 07/19/2024 Telephone [facility] [place] [address] [place] [phone] Tereso Gil DPM Information (SX INFO INQUIRY) 07/18/2024 4:35 PM CDT - 07/19/2024 4:54 PM CDT Hospital Encounter [facility] 4A Cardiac [address] [place] [address] Danny Velasquez MD Sundaram, Vignesh, MD Mady, Mohamed Hamdy Ahmed Mohamed, MD Acute respiratory distress Discharge Disposition: Home or Self Care 07/18/2024 Telephone [facility] [place] [address] [address] Tereso Gil, DPM Information (RETURNING CALL TO PT) 07/14/2024 8:33 AM CDT - 07/16/2024 12:41 PM CDT Hospital Encounter [facility] 4C Medical [address] [place] [address] Abel Singletary MD Sohail, MD Margot Klein, Harinderjeet, MD Byron, Jorge S, MD Cellulitis of right lower extremity Discharge Disposition: Home or Self Care 07/14/2024 Telephone [facility] [place] [address] [place] [phone] Tereso Gil, DPM Information (NOTIFY PT OF SX DATE CHANGE) 07/14/2024 Telephone [facility] [place] [address] [place] [address] Tereso Gil, DPM Information (RESCHED SX/ PRE-OP INSTRUCTIONS AND ARRIVAL TIME) 07/14/2024 Travel 07/13/2024 Telephone [facility] [place] [address] [place] [phone] Tereso Gil, DPM Information (TO RESCHED SX) 2024 12:27 PM CDT - 2024 11:59 PM CDT Hospital Encounter [facility] Imaging [facility] [address] [place] [address] Jose Cruz Sanchez MD Discharge Disposition: Home or Self Care 2024 11:57 AM CDT - 2024 11:59 PM CDT Hospital Encounter [facility] Pre Admission [facility] [address] [place] [address] Tereso Gil, DPM Discharge Disposition: Home or Self Care 2024 Travel 07/07/2024 Telephone [facility] [address] [place] [phone] Raúl Rod MD schedule HFU with ENTRY LEVEL CIVIL ENGINEER cardiology 07/05/2024 External Device Data STL ABSTRACTION Provider, Abstract 07/04/2024 [facility] [address] [place] [phone] Eduardo Craven MD 07/04/2024 [facility] [address] [facility] [address] [place] [address] Ashley Virgen, JOANNE Chest pain, unspecified type; Congestive heart failure, unspecified HF chronicity, unspecified heart failure type ([facility]/HCC) 07/02/2024 8:47 PM CDT - 07/06/2024 7:37 PM CDT Hospital Encounter [facility] 4A Cardiac [address] [place] [address] Danny Mclean MD Elgayesh, MD Byron Garcias Jagdeep S, MD Shah, Matilde Henry MD Bipolar affective disorder ([facility]/HCC) Discharge Disposition: Left Against Medical Advice 07/02/2024 Travel 07/01/2024 Telephone [facility] [address] [place] [address] Veronika Yusuf RN Anticoagulation 06/30/2024 7:21 PM CDT - 07/02/2024 12:38 PM CDT Hospital Encounter [facility] 4A Cardiac [address] [place] [address] Aki Booth, DO Blankenship, MD Byron Garcias Jagdeep S, MD Pneumonia of left lower lobe due to infectious organism Discharge Disposition: Home or Self Care 06/30/2024 Travel 06/28/2024 External Device Data STL ABSTRACTION Provider, Abstract 06/22/2024 Telephone [facility] [address] [place] [address] Eduardo Craven MD Needs Appointment [...] PNEUM OCOCCAL CONJUGATE VACCINE 20-VALENT (PCV20), POLYSACCHARIDE [id number] CONJUGATE, ADJUVANT 0.5 ML (PF) IM 06/05/2023,12/02/2022,12/25/2021 [...] Never 06/13/2019 How often do you attend [facility] or mormonism services? 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 TRAINER Gender Identity Not on file Sexual Orientation [...] Description 09/22/2024 10:00 AM CDT Office Visit [facility] Neuro[facility] [address] [place] [address] Jerson Salas PA [address] [place] [address] 10/06/2024 4:00 PM CDT Office Visit [facility] Pulmonology [address] [place] [address] Cristian Metcalf, SENIOR INDUSTRIAL ENGINEER [address] [place] [address] Health Maintenance Due Date Last [...] Anguiano LPN Medical Devices Implanted Type Area Goldbeater Device Identifier Shelf Expiration Date Model / Serial / Lot Dev Closure Angioseal 6fr Vip [id number] - [id number] Implanted:Qty: 1 on 03/21/2024 by Kyler Helm MD at [facility] Closure Device Right: Groin TERUMO- CARDIOVASC SYS [id number] 10/25/2024 [id number] / / [id number] 93 Imp Toe Phalinx 10 Solid Angl Sml [id number] - [id number] Implanted:Qty: 1 on 07/20/2024 by Tereso Gil DPM at [facility] Toe Left: Foot [employer] 12/29/2031 [id number] / / [id number] Procedures Procedure Name Priority Date/Time Associated Diagnosis [...] BLOOD CULTURE Routine 09/13/2024 12:55 PM CDT BLOOD CULTURE Routine [...] AIRWAY Routine 07/20/2024 6:2 0 PM CDT PA CORRECTION HAMMERTOE 07/20/2024 5:10 PM CDT Hammer [...] CDT LIPID PANEL Routine 02/19/2024 5:29 AM HEAD ANIMAL TRAINER MICROALBUMIN/CREATINI NE RATIO, RANDOM UR Routine 02/26/2023 3:01 PM HEAD ANIMAL TRAINER Type 2 diabetes mellitus without complication, without long-term current use of insulin ([facility]) Wellness examination CERV/VAG CYTO SCREEN PAP W/HPV [...] 2.2(H) <=2.0 mmol/L 09/15/2024 8:42 AM CDT [facility] Blood Venipuncture / Unknown 09/15/2024 8:00 AM CDT 09/15/2024 8:03 AM CDT Michael Tovar MD CHEMISTRY ORDERABLES Final Result [facility] CLIA # [id number] [address] [address] [place], [place] [id number] * PROTIME-INR (09/15/2024 8:00 AM CDT) Only the most recent of34 resultswithin the time period is included. PROTIME 13.8 12.7 - 14.9 Seconds 09/15/2024 8:42 AM CDT [facility] INR 1.0 0.8 - 1.2 09/15/2024 8:42 AM CDT [facility] Blood Venipuncture / Unknown 09/15/2024 8:00 AM CDT 09/15/2024 8:03 AM CDT [facility] - 09/15/2024 8:42 AM CDT Expected Values for INR: DVT/PE Goal INR 2.5; range 2.0 - 3.0 Valve Replacement Tissue Goal INR 2.5; range 2.0 - 3.0 Valve Replacement Mechanical Goal INR 3.0; range 2.5 - 3.5 POST-LA Goal INR 2.5; range 2.0 - 3.0 or Goal INR 3.0; range 2.5 - 3.5 Atrial Fibrillation Goal INR 2.5; range 2.0 - 3.0 Ischemic Stroke Goal INR 2.5; range 2.0 - 3.0 Michael Tovar MD HEMATOLOGY ORDERABLES Final Result [facility] CLIA # [id number] [address] [place] [phone] * (ABNORMAL) COMPREHENSIVE METABOLIC PANEL (09/15/2024 8:00 AM CDT) Only the most recent of23 resultswithin the time period is included. SODIUM 138 136 - 145 mmol/L 09/15/2024 10:22 AM CDT [facility] POTASSIUM 4.4 3.5 - 5.1 mmol/L 09/15/2024 10:22 AM CDT [facility] CHLORIDE 101 98 - 107 mmol/L 09/15/2024 10:22 AM CDT [facility] CO2 20(L) 22 - 29 mmol/L 09/15/2024 10:22 AM CDT [facility] CALCIUM 8.9 8.6 - 10.0 mg/dL 09/15/2024 10:22 AM T [facility] BUN 18 6 - 20 mg/dL 09/15/2024 10:22 AM [facility] CREATININE 0.51 0.51 - 0.95 mg/dL 09/15/2024 10:22 AM [facility] GLUCOSE 238(H) 74 - 99 mg/dL 09/15/2024 10:22 AM [facility] TOTAL PROTEIN 6.2(L) 6.4 - 8.3 g/dL 09/15/2024 10:22 AM [facility] ALBUMIN 3.4(L) 3.5 - 5.2 g/dL 09/15/2024 10:22 AM [facility] BILIRUBIN TOTAL 0.3 0.0 - 1.0 mg/dL 09/15/2024 10:22 AM [facility] ALKALINE PHOSPHATASE 102 35 - 104 U/L 09/15/2024 10:22 AM [facility] AST 17 10 - 35 U/L 09/15/2024 10:22 AM [facility] Comment:Hemolysis present. R esult may be falsely elevated. ALT 39(H) <=35 U/L 09/15/2024 10:22 AM [facility] GFR >60 >=60 mL/min/1.7 3 sq meter 09/15/2024 10:22 AM [facility] Comment:eGFR calculated with 2020 CKD-EPI equation. Vegetarian diet, extremely high or low muscle mass, and may affect results. Cystatin C with Glomerular Filtration Rate is a suitable alternative for these patients. ANION GAP 17 9 - 20 mmol/L 09/15/2024 10:22 AM [facility] Blood Venipuncture / Unknown 09/15/2024 8:00 AM CDT 09/15/2024 8:03 AM T us Michael Tovar MD CHEMISTRY ORDERABLES Final Result [facility] CLIA # [id number] [address] [place] [address] * (ABNORMAL) POC GLUCOSE (09/15/2024 7:26 AM CDT) Only the most recent of111 resultswithin the time period is included. [facility] GLUCOSE POC 202(H) 74 - 99 mg/dL 09/15/2024 7:26 AM CDT [facility] SPECIMEN SOURCE, GLUCOSE POC Capillary 09/15/2024 7:26 AM CDT [facility] Blood, whole 09/15/2024 7:26 AM CDT 09/15/2024 7:42 AM CDT Michael Tovar MD POINT OF CARE TESTING Final Result [facility] CLIA # [id number] [address] [place] [address] * (ABNORMAL) CBC WITH DIFFERENTIAL (09/14/2024 12:08 PM CDT) Only the most recent of32 resultswithin the time period is included. [facility] WBC 10.9(H) 4.8 - 10.8 K/uL 09/14/2024 12:24 PM CDT [facility] NRBCS 5(H) <1 % 09/14/2024 12:24 PM CDT [facility] RBC 3.47(L) 4.20 - 5.40 M/uL 09/14/2024 12:24 PM CDT [facility] HEMOGLOBIN 10.8(L) 12.0 - 16.0 g/dL 09/14/2024 12:24 PM CDT [facility] HEMATOCRIT 35.2(L) 36.0 - 46.0 % 09/14/2024 12:24 PM CDT [facility] MCV 101.4 84.0 - 103.0 fL 09/14/2024 12:24 PM [facility] MCH 31.1 27.0 - 34.0 pg 09/14/2024 12:24 PM [facility] MCHC 30.7 30.0 - 35.0 g/dL 09/14/2024 12:24 PM [facility] PLATELETS 172 140 - 440 K/uL 09/14/2024 12:24 PM [facility] MPV 11.2 8.9 - 12.8 fL 09/14/2024 12:24 PM [facility] RDW 18.9(H) 11.0 - 14.5 % 09/14/2024 12:24 PM [facility] RDW-STDEV 69.1(H) 37.0 - 54.0 fL 09/14/2024 12:24 PM [facility] NEUTROPHILS 88(H) 42 - 75 % 09/14/2024 12:24 PM [facility] LYMPHOCYTES 7(L) 24 - 44 % 09/14/2024 12:24 PM [facility] MONOCYTES 4 2 - 10 % 09/14/2024 12:24 PM [facility] EOSINOPHILS 0 0 - 7 % 09/14/2024 12:24 PM [facility] BASOPHILS 0 0 - 1 % 09/14/2024 12:24 PM [facility] IMMATURE GRANULOCYTES 2 0 - 2 % 09/14/2024 12:24 PM [facility] NEUTROPHIL ABSOLUTE 9.62(H) 2.00 - 8.00 K/uL 09/14/2024 12:24 PM [facility] LYMPHOCYTE ABSOLUTE 0.71(L) 1.20 - 4.00 K/uL 09/14/2024 12:24 PM [facility] MONOCYTE ABSOLUTE 0.38 0.10 - 0.60 K/uL 09/14/2024 12:24 PM [facility] EOSINOPHIL ABSOLUTE 0.02 0.00 - 0.70 K/uL 09/14/2024 12:24 PM CDT [facility] BASOPHILS ABSOLUTE 0.02 0.00 - 0.20 K/uL 09/14/2024 12:24 PM CDT [facility] IMMATURE GRANULOCYTES ABSOLUTE 0.19(H) 0.00 - 0.10 K/uL 09/14/2024 12:24 PM T [facility] SMEAR REVIEWED: NN - No Action Needed 09/14/2024 12:24 PM [facility] Blood Venipuncture / Unknown 09/14/2024 12:08 PM CDT 09/14/2024 12:13 PM CDT Michael Tovar MD HEMATOLOGY ORDERABLES Final Result [facility] CLIA # [id number] [address] [place] [address] * (ABNORMAL) BLOOD GAS ARTERIAL (09/13/2024 8:22 PM CDT) Only the most recent of5 resultswithin the time period is included. PH BLOOD POC 7.40 7.35 - 7.45 09/13/2024 8:22 PM [facility] PCO2 POC 54(H) 35 - 45 mm Hg 09/13/2024 8:22 PM [facility] PO2 POC 44(L) 80 - 105 mm Hg 09/13/2024 8:22 PM [facility] HCO3 (CALC) POC 33(H) 22 - 26 mmol/L 09/13/2024 8:22 PM [facility] HEMOGLOBIN POC 10.8(L) 12.0 - 18.0 g/dL 09/13/2024 8:22 PM [facility] BASE EXCESS POC 9(H) -2 - 3 mmol/L 09/13/2024 8:22 PM [facility] O2 SATURATION POC 78(L) 95 - 98 % 09/13/2024 8:22 PM [facility] SODIUM POC 136(L) 138 - 146 mmol/L 09/13/2024 8:22 PM [facility] POTASSIUM POC 4.2 3.5 - 4.9 mmol/L 09/13/2024 8:22 PM [facility] HEMATOCRIT POC 32(L) 38 - 51 % 09/13/2024 8:22 PM [facility] PH TEMP CORRECT 7.40 7.35 - 7.45 09/13/2024 8:22 PM [facility] PCO2 TEMP CORRECT 54(H) 35 - 45 mm Hg 09/13/2024 8:22 PM [facility] PO2 TEMP CORRECT 44(L) 80 - 105 mm Hg 09/13/2024 8:22 PM [facility] SPECIMEN SOURCE, GASES POC Arterial 09/13/2024 8:22 PM [facility] CALCIUM IONIZED POC 5.1 4.8 - 5.2 mg/dL 09/13/2024 8:22 PM [facility] TCO2 (CALC) POC 35(H) 23 - 27 mmol/L 09/13/2024 8:22 PM [facility] LITER FLOW 3.0 L/min 09/13/2024 8:22 PM [facility] PUNC SITE POC ART PUNCT 09/13/2024 8:22 PM [facility] SOURCE OF OXYGEN POC Cannula 09/13/2024 8:22 PM [facility] Blood, arterial 09/13/2024 8 :22 PM CDT 09/13/2024 8:24 PM T Peña Mata MD ABG ORDERABLES Final Re sult [facility] CLIA # [id number] [facility] [address] [address] [place] [address] * XR THORACOLUMBAR SPINE 2 VW (09/13/2024 [...] ASSOCIATED DIAGNOSIS: Fracture ORDERING PROVIDER: ANDRADE FELTON TE[employer]OLOGISTS NOTE: COMPARISON: Lumbar spine radiographs 03/24/2009 FINDINGS: [...] ASSOCIATED DIAGNOSIS: Fracture ORDERING PROVIDER: ANDRADE FELTON [employer] NOTE: COMPARISON: Lumbar spine radiographs 03/24/2009 FINDINGS: [...] 3.2(H) <=2.0 mmol/L 09/13/2024 2:52 PM CDT [facility] SPECIMEN SOURCE, GASES POC Arterial 09/13/2024 2:52 PM CDT [facility] SITE POC ART PUNCT 09/13/2024 2:52 PM CDT [facility] Blood 09/13/2024 2:52 PM CDT 09/13/2024 2:55 PM CDT Narrative [facility] - 09/13/2024 2:52 PM CDT References ranges displayed are for Arterial samples. Peña Mata MD POINT OF CARE TESTING Fi nal Result Performing Organization Address City/[facility]/ZIP Co de Phone Number [facility] CLIA # [id number] [address] [facility] [place] [address] * BLOOD CULTURE (09/13/2024 2:15 PM CDT) Only the most recent of14 resultswithin the time period is included. BLOOD CULTURE No growth 09/18/2024 3:31 PM CDT [facility] Blood (Peripheral) Venipuncture / Unknown 09/13/2024 2:15 PM CDT 09/13/2024 2:38 PM CDT Peña Mata MD MICROBIOLOGY - GENERAL O RDERABLES Final Result Performing Organization Address [facility] Co de Phone Number [facility] CLIA # [id number] [address] [address] [place] [address] * US ABDOMEN LIMITED (09/13/2024 1:27 PM [...] Bipolar affective disorder, currently depressed, moderate (CMS/HCC); HENEA (generalized anxiety disorder); Protein-calorie malnutrition, moderate; H/O [...] ductal dilatation. 2. Diffuse hepatic fatty infiltration. us Peña Mata MD US ORDERABLES Final Re sult * EXTRA TUBE (URINE [place]) (09/13/2024 1:12 PM CDT) Only the most recent of6 resultswithin the time period is included. Urine URINE SPECIMEN OBTAINED BY CLEAN CATCH PROCEDURE / Unknown Collection / Unknown 09/13/2024 1:12 PM CDT 09/13/2024 1:20 PM CDT Peña Mata MD URINE ORDERABLES Final R esult [facility] CLIA # [id number] [address] [place] [address] * (ABNORMAL) URINALYSIS WITH REFLEX MICROSCOPIC (09/13/2024 1:12 PM CDT) Only the most recent of6 resultswithin the time period is included. COLOR UA Colorless(A ) Pale to Dark Yellow 09/13/2024 1:29 PM T [facility] CLARITY UA Clear Clear 09/13/2024 1:29 PM T [facility] SPECIFIC GRAVITY UA 1.012 1.003 - 1.035 09/13/2024 1:29 PM T [facility] PH UA 5.5 5.0 - 8.0 09/13/2024 1:29 PM T [facility] LEUKOCYTE ESTERASE UA 2+(A) Negative 09/13/2024 1:29 PM T [facility] NITRITE UA Negative Negative 09/13/2024 1:29 PM T [facility] PROTEIN UA Negative Negative 09/13/2024 1:29 PM T [facility] GLUCOSE UA 2+(A) Negative 09/13/2024 1:29 PM T [facility] KETONES UA Negative Negative 09/13/2024 1:29 PM T [facility] UROBILINOGEN UA <2.0 <2.0 mg/dL 1:29 PM T [facility] BILIRUBIN UA Negative Negative 09/13/2024 1:29 PM T [facility] BLOOD UA Negative Negative 09/13/2024 1:29 PM CDT [facility] WBC UA 0-2 0 - 2 /hpf 09/13/2024 1:29 PM CDT [facility] RBC UA 0-2 0 - 2 /hpf 09/13/2024 1:29 PM CDT [facility] BACTERIA UA 2+(A) Negative /hpf 09/13/2024 1:29 PM CDT [facility] EPITHELIAL CELLS, URINE 0-5 0 - 5 /hpf 09/13/2024 1:29 PM CDT [facility] HYALINE CAST 0-2 None Seen, 0-2 /lpf 09/13/2024 1:29 PM CDT [facility] Urine URINE SPECIMEN OBTAINED BY CLEAN CATCH PROCEDURE / Unknown Collection / Unknown 09/13/2024 1:12 PM CDT 09/13/2024 1:20 PM CDT Peña Mata MD URINE ORDERABLES Final R esult Performing Organization Address City/[facility]/ZIP Co de Phone Number [facility] CLIA # [id number] [address] [address] [place] [address] * URINE CULTURE (09/13/2024 1:12 PM CDT) CULTURE Polymicrobial growth consistent with normal urethral kota and/or colonizing bacteria 09/14/2024 11:22 AM CDT [facility] Urine URINE SPECIMEN OBTAINED BY CLEAN CATCH PROCEDURE / Unknown Collection / Unknown 09/13/2024 1:12 PM CDT 09/13/2024 1:20 PM CDT Peña Mata MD MICROBIOLOGY - GENERAL O RDERABLES Final Result Performing Organization Address City/[facility]/ZIP Co de Phone Number [facility] CLIA # [id number] [address] [place] [address] * (ABNORMAL) BLOOD GAS VENOUS (09/13/2024 11:47 AM [facility]) Only the most recent of6 resultswithin the time period is included. [facility] PH BLOOD POC 7.31(L) 7.32 - 7.43 09/13/2024 11:47 AM [facility] PCO2 POC 64(H) 38 - 50 mm Hg 09/13/2024 11:47 AM [facility] PO2 POC 66(H) 25 - 40 mm Hg 09/13/2024 11:47 AM [facility] HCO3 (CALC) POC 32(H) 22 - 29 mmol/L 09/13/2024 11:47 AM [facility] HEMOGLOBIN POC 10.7(L) 12.0 - 18.0 g/dL 09/13/2024 11:47 AM [facility] BASE EXCESS POC 6(H) -2 - 3 mmol/L 09/13/2024 11:47 AM [facility] O2 SATURATION POC 94(H) 40 - 70 % 09/13/2024 11:47 AM [facility] SODIUM POC 136 135 - 145 mmol/L 09/13/2024 11:47 AM [facility] POTASSIUM POC 4.3 3.5 - 4.9 mmol/L 09/13/2024 11:47 AM [facility] HEMATOCRIT POC 32(L) 38 - 51 % 09/13/2024 11:47 AM [facility] PH TEMP CORRECT 7.31(L) 7.32 - 7.43 09/13/2024 11:47 AM [facility] PCO2 TEMP CORRECT 64(H) 38 - 50 mm Hg 09/13/2024 11:47 AM [facility] PO2 TEMP CORRECT 66(H) 25 - 40 mm Hg 09/13/2024 11:47 AM [facility] SPECIMEN SOURCE, GASES POC Venous 09/13/2024 11:47 AM [facility] CALCIUM IONIZED POC 5.3(H) 4.8 - 5.2 mg/dL 09/13/2024 11:47 AM CDT [facility] TCO2 (CALC) POC 34(H) 22 - 26 mmol/L 09/13/2024 11:47 AM CDT [facility] PUNC SITE POC No Charge 09/13/2024 11:47 AM CDT [facility] Blood, venous 09/13/2024 11: 47 AM CDT 09/13/2024 11:49 AM CDT Peña Mata MD ABG ORDERABLES Final Re sult Performing Organization Address [facility]/ZIP Co de Phone Number [facility] CLIA # [id number] [address] [address] [place], [place] [id number] * (ABNORMAL) TROPONIN 6 HR, 5TH GEN (09/13/2024 9:16 AM CDT) Only the most recent of10 resultswithin the time period is included. TROPONIN T, 6 HR 5TH GEN 29(H) <11 ng/L 09/13/2024 9:55 AM CDT [facility] DELTA 6HR TROPONIN T 1 See Interp. 09/13/2024 9:55 AM CDT [facility] Blood Venipuncture / Unknown 09/13/2024 9:16 AM CDT 09/13/2024 9:24 AM CDT Narrative [facility] - 09/13/2024 9:55 AM CDT Troponin elevated. Delta indeterminate. us Robbie Yen DO CHEMISTRY ORDERABLES F inal Result Performing Organization Address [facility]/ZIP Co de Phone Number [facility] CLIA # [id number] [address] [address] [place], [place] [id number] * (ABNORMAL) BASIC METABOLIC PANEL (09/13/2024 9:16 AM CDT) Only the most recent of16 resultswithin the time period is included. SODIUM 139 136 - 145 mmol/L 09/13/2024 9:59 AM CDT [facility] POTASSIUM 4.5 3.5 - 5.1 mmol/L 09/13/2024 9:59 AM T [facility] CHLORIDE 102 98 - 107 mmol/L 09/13/2024 9:59 AM T [facility] CO2 25 22 - 29 mmol/L 09/13/2024 9:59 AM T [facility] CALCIUM 9.4 8.6 - 10.0 mg/dL 09/13/2024 9:59 AM T [facility] BUN 20 6 - 20 mg/dL 09/13/2024 9:59 AM T [facility] CREATININE 0.52 0.51 - 0.95 mg/dL 09/13/2024 9:59 AM T [facility] GLUCOSE 257(H) 74 - 99 mg/dL 09/13/2024 9:59 AM [facility] GFR >60 >=60 mL/min/1.7 3 sq meter 09/13/2024 9:59 AM T [facility] Comment:eGFR calculated with 2020 CKD-EPI equation. Vegetarian diet, extremely high or low muscle mass, and may affect results. Cystatin C with Glomerular Filtration Rate is a suitable alternative for these patients. ANION GAP 12 9 - 20 mmol/L 09/13/2024 9:59 AM T [facility] Blood Venipuncture / Unknown 09/13/2024 9:16 AM CDT 09/13/2024 9:25 AM CDT us Nba Baig MD CHEMISTRY ORDERABLES Fi nal Result [facility] CLIA # [id number] [facility] [address] [place] [address] * (ABNORMAL) TROPONIN 2 HR, 5TH GEN (09/12/2024 11:02 PM CDT) Only the most recent of14 resultswithin the time period is included. [facility] TROPONIN T, 2 HR 5TH GEN 27(H) <=10 ng/L 09/12/2024 11:41 PM CDT [facility] DELTA 2HR TROPONIN T -1 See Interp. 09/12/2024 11:41 PM CDT [facility] Blood Venipuncture / Unknown 09/12/2024 11:02 PM CDT 09/12/2024 11:10 PM CDT [facility] - 09/12/2024 11:41 PM CDT Troponin elevated. Delta not changing. us Robbie Yen DO CHEMISTRY ORDERABLES F inal Result [facility] CLIA # [id number] [address] [address] [place] [address] * RESPIRATORY PATHOGEN PCR PANEL (09/12/2024 11:02 PM CDT) Only the most recent of7 resultswithin the time period is included. [facility] Respiratory Pathogen PCR Panel NOT DETECTED No respiratory pathogen nucleic acids detected. 09/13/2024 12:31 AM CDT [facility] COVID-19 PCR NOT DETECTED Not Detected 09/13/2024 12:31 AM CDT [facility] Upper Respiratory ENTIRE NASOPHARYNX / Unknown Collection / Unknown 09/12/2024 11:02 PM CDT 09/12/2024 11:08 PM CDT [facility] - 09/13/2024 12:31 AM CDT The Film [...] DO MICROBIOLOGY - GENERAL ORDERABLES Final Result [facility] # [id number] [address] [address] * XR CHEST PA OR AP 1 [...] CDT 09/12/2024 10:59 PM CDT External Provider [facility] HEMATOLOGY ORDERABLES Jana l Result Performing Organization Address [facility] de Phone Number [facility] [employer] [facility] CLIA # [id number] [address] [place] [address] * (ABNORMAL) TROPONIN BASELINE, 5TH GEN (09/12/2024 9:32 PM CDT) Only the most recent of14 resultswithin the time period is included. Pathologist [facility] TROPONIN T, BASELINE 5TH GEN 28(H) <=10 ng/L 09/12/2024 10:15 PM CDT [facility] Blood Venipuncture / Unknown 09/12/2024 9:32 PM CDT 09/12/2024 9:41 PM CDT Narrative [facility] - 09/12/2024 10:15 PM CDT Troponin elevated. Robbie Yen DO CHEMISTRY ORDERABLES F inal Result Performing Organization Address [facility] de Phone Number [facility] [employer] [facility] CLIA # [id number] [address] [place], [place] [address] * (ABNORMAL) BRAIN NATRIURETIC PEPTIDE, BNP OR PROBNP (09/12/2024 9:32 PM CDT) Only the most recent of12 resultswithin the time period is included. PROBNP, N TERMINAL 623(H) 0 - 125 pg/mL 09/12/2024 10:22 PM CDT [facility] [employer] [facility] Comment: INTERPRETIVE COMMENT based on [...] Yen DO CHEMISTRY ORDERABLES F inal Result [facility] # [id number] [address] [address] * EKG 12-LEAD (09/12/2024 9:23 PM CDT) Only the most recent of23 resultswithin the time period is included. 09/12/2024 9:23 PM CDT Narrative INTERFACE SYSTEM - 09/13/2024 6:08 PM [address]T [address] [address] Test Date: 2024-09-12 Pat Name: LE DIAZ Department: 11 Room: 18 18 Gender: Female [employer]: [id number] : 1965 Requested By: Order Number: [id number] Jessica MD: Kyler Helm Measurements Intervals [place] Rate: 95 P: 33 PA: 138 QRS: 48 QRSD: 80 T: -10 QT: 332 QTc: 417 Interpretive Statements Normal sinus rhythm Possible Left atrial enlargement Possible Inferior infarct, age undetermined Abnormal ECG Electronically Signed On 09-13-2024 18:08:49 CDT by Kyler Helm Procedure Note Kyler Helm MD - 09/13/[id number] [place] [address] Test Date: 2024-09-12 Pat Name: LE DIAZ Department: 11 Room: 18 18 Gender: Female [employer]: [id number] : 1965 Requested By: Order Number: [id number] Reading MD: Kyler Helm Measurements Intervals [place] Rate: 95 P: 33 PA: 138 QRS: 48 QRSD: 80 T: -10 QT: 332 QTc: 417 Interpretive Statements Normal sinus rhythm Possible Left atrial enlargement Possible Inferior infarct, age undetermined Abnormal ECG Electronically Signed On 09-13-2024 18:08:49 CDT by Kyler Helm us Robbie Yen DO ECG ORDERABLES Final Result Performing Organization Address City/State/[facility] Co de Phone Number INTERFACE SYSTEM Refer to clinic/hospital department * [...] 36 - 66 % 09/10/2024 10:01 PM [facility] LYMPHOCYTES RELATIVE 10(L) 24 - 44 % 09/10/2024 10:01 PM [facility] MONOCYTES RELATIVE 2(L) 4 - 10 % 2024 10:01 PM [facility] METAMYELOCYTES RELATIVE 1 0 - 1 % 09/10/2024 10:01 PM [facility] MYELOCYTES - REL (DIFF) 2(H) 0 - 1 % 09/10/2024 10:01 PM [facility] PLATELET EST. Adequate 09/10/2024 10:01 PM [facility] NEUTROPHILS ABSOLUTE COUNT 6.21 2.00 - 8.00 K/uL 09/10/2024 10:01 PM [facility] LYMPHOCYTES ABSOLUTE 0.73(L) 1.20 - 4.00 K/uL 09/10/2024 10:01 PM [facility] ATYPICAL LYMPHS ABSOLUTE 09/10/2024 10:01 PM [facility] MONOCYTES ABSOLUTE 0.15 0.10 - 0.60 K/uL 09/10/2024 10:01 PM [facility] ANISOCYTOSIS 1+ /hpf 09/10/2024 10:01 PM [facility] COTTON-JOLLY BODIES Present /hpf 09/10/2024 10:01 PM [facility] TOTAL CELLS COUNTED IN DIFF 100 09/10/2024 10:01 PM [facility] Blood Venipuncture / Unknown 09/10/2024 9:30 PM CDT 09/10/2024 9:33 PM CDT Layton Barrow MD HEMATOLOGY ORDERABLES COM Final Result [facility] CLIA # [id number] [address] [place] [address] [place] [address] * D-DIMER (09/10/2024 9:30 PM CDT) Only the most recent of2 resultswithin the time period is included. D-DIMER QUANT <0.27 0.00 - 0.50 ug/mL FEU 09/10/2024 10:03 PM CDT [facility] Blood Venipuncture / Unknown 09/10/2024 9:30 PM CDT 09/10/2024 9:33 PM CDT Narrative [facility] - 09/10/2024 10:03 PM CDT D-Dimer [...] Barrow MD HEMATOLOGY ORDERABLES Final Res ult [facility] CLIA # [id number] [address] [place] [address] * XR CHEST PA AND LATERAL 2 [...] 0.12(H) <=0.08 ng/mL 08/30/2024 6:32 AM CDT [facility] [employer] [facility] Blood Venipuncture / Unknown 08/30/2024 5:27 AM CDT 08/30/2024 5:41 AM CDT Narrative [facility] [employer] [facility] - 08/30/2024 6:32 AM CDT The [...] 2-4 hours and peaks within 6-24 hours. us Stefanie Ferrara MD CHEMISTRY ORDERABLES Final Resul t [facility] CLIA # [id number] [address] [place] [address] * INFLUENZA A/B, RSV AND COVID-19 PCR PANEL (08/30/2024 2:52 AM CDT) Only the most recent of4 resultswithin the time period is included. COVID-19 PCR NOT DETECTED Not Detected 08/31/19 3:49 AM [facility] Influenza A by PCR NOT DETECTED Not Detected 08/30/2024 3:49 AM T [facility] Influenza B by PCR NOT DETECTED Not Detected 08/30/2024 3:49 AM T [facility] RSV by PCR NOT DETECTED Not Detected 08/30/2024 3:49 AM [facility] Upper Respiratory ENTIRE NASOPHARYNX / Unknown Collection / Unknown 08/30/2024 2:52 AM CDT 08/30/2024 2:55 AM CDT [facility] - 08/30/2024 3:49 AM CDT This test [...] out infection with the 2019-Novel Coronavirus. Danitza Wayne MD MICROBIOLOGY - GEN ERAL ORDERABLES Final Result [facility] CLIA # [id number] [address] [place] [address] * CT ABDOMEN PELVIS W CONTRAST (08/29/2024 [...] - 60 U/L 08/29/2024 8:54 PM CDT [facility] Blood Venipuncture / Unknown 08/29/2024 8:09 PM CDT 08/29/2024 8:18 PM CDT Danitza Wayne MD CHEMISTRY ORDERABL ES Final Result Performing Organization Address [facility] Co de Phone Number [facility] CLIA # [id number] [address] [place] [address] * PTT (08/22/2024 4:32 PM CDT) Only the most recent of3 resultswithin the time period is included. PTT 25.0 24.8 - 37.2 seconds 08/22/2024 4:57 PM CDT [facility] Blood Venipuncture / Unknown 08/22/2024 4:32 PM CDT 08/22/2024 4:38 PM CDT Narrative [facility] - 08/22/2024 4:57 PM CDT Therapeutic Range: Hi-level PE/DVT heparin protocol 80.1 - 95.0 sec Lo-level PE/DVT heparin protocol 70.1 - 85.0 sec Cardiac Heparin Protocol 70.1 - 100.0 sec Austin Robertson MD HEMATOLOGY ORDERAB LES Final Result Performing Organization Address [facility] Co de Phone Number [facility] CLIA # [id number] [address] [place] [address] * CT CHEST WO CONTRAST (08/18/2024 11:42 [...] - 2.6 mg/dL 08/18/2024 8:21 AM CDT [facility] Blood Venipuncture / Unknown 08/18/2024 6:01 AM CDT 08/18/2024 6:40 AM CDT Nba Baig MD CHEMISTRY ORDERABLES Fi nal Result Performing Organization Address [facility] de Phone Number [facility] CLIA # [id number] [facility] [address] * VITAMIN B12 AND FOLATE (08/16/2024 4:59 AM CDT) Only the most recent of2 resultswithin the time period is included. VITAMIN B12 374 211 - 946 pg/mL 08/16/2024 6:23 AM CDT [facility] FOLATE, SERUM 14.5 3.1 - 17.5 ng/mL 08/16/2024 6:23 AM CDT [facility] Blood Venipuncture / Unknown 08/16/2024 4:59 AM CDT 08/16/2024 5:05 AM CDT Nayely Mena MD CHEMISTRY ORDERABLES Final Resul t Performing Organization Address [facility] Phone Number [facility] CLIA # [id number] [address] [place] [address] * CT HUMERUS WO CONTRAST LEFT (08/15/2024 [...] - 4.20 uIU/mL 08/14/2024 8:09 PM CDT [facility] [employer] [facility] Blood Venipuncture / Unknown 08/14/2024 7:05 PM CDT 08/14/2024 7:14 PM CDT Aki Booth DO CHEMISTRY ORDERABLES Fi nal Result [facility] CLIA # [id number] [address] [address] [place] [address] * XR HUMERUS 2+ VW LEFT (08/14/2024 [...] likely present. Aki Booth DO DIAGNOSTIC IMAGING [facility] Final Result * (ABNORMAL) DRUG SCREEN, URINE (08/04/2024 11:44 AM CDT) Only the most recent of2 resultswithin the time period is included. Pathologist [facility] AMPHETAMINE QUAL, URINE Negative Negative 08/04/2024 12:30 PM CDT [facility] BARBITURATE QUAL, URINE Negative Negative 08/04/2024 12:30 PM CDT [facility] BENZODIAZEPINE QUAL, URINE Negative Negative 08/04/2024 12:30 PM CDT [facility] COCAINE QUAL URINE Negative Negative 08/04/2024 12:30 PM CDT [facility] OPIATE QUAL, URINE Negative Negative 08/04/2024 12:30 PM T [facility] CANNABINOIDS QUAL, URINE Negative Negative 08/04/2024 12:30 PM CDT [facility] OXYCODONE QUAL, URINE Presumptive Positive(A) Negative 08/04/2024 12:30 PM CDT [facility] METHADONE QUAL, URINE Negative Negative 08/04/2024 12:30 PM CDT [facility] FENTANYL QUAL, URINE Negative Negative 08/04/2024 12:30 PM CDT [facility] CREATININE, URINE 11.9(L) 29.0 - 226.0 mg/dL 08/04/2024 12:30 PM T [facility] Comment:Reference Range vari es with fluid intake and diet. Urine URINE SPECIMEN OBTAINED BY CLEAN CATCH PROCEDURE / Unknown Collection / Unknown 08/04/2024 11:44 AM CDT 08/04/2024 11:51 AM CDT Narrative [facility] - 08/04/2024 12:30 PM CDT When Urine [...] Danny Mclean MD URINE ORDERABLES Final Result [facility] CLIA # [id number] [address] [place] [address] [place] [address] * UNFRACTIONATED HEPARIN MONITORING (08/04/2024 9:09 AM CDT) ANTI-XA UNFRAC HEP <0.10 See Interpretation IU/mL 08/04/2024 9:37 AM [facility] Blood Venipuncture / Unknown 08/04/2024 9:09 AM CDT 08/04/2024 9:17 AM T [facility] - 08/04/2024 9:37 AM CDT Therapeutic Range: PT/DVT Heparin Protocol 0.3 - 0.7 IU/ml Cardiac Heparin Protocol 0.3 - 0.6 IU/ml The reference range for this test is specific to the anticoagulant and is not appropriate for monitoring patients on a DOAC protocol. us Lenin Amezquita MD HEMATOLOGY ORDERABLES Final Resu lt [facility] CLIA # [id number] [facility] [address] * (ABNORMAL) CBC WITHOUT DIFFERENTIAL (08/04/2024 9:09 AM CDT) Only the most recent of4 resultswithin the time period is included. [facility] WBC 9.5 4.8 - 10.8 K/uL 08/04/2024 9:24 AM [facility] NRBCS 1(H) <1 % 08/04/2024 9:24 AM [facility] RBC 4.14(L) 4.20 - 5.40 M/uL 08/04/2024 9:24 AM [facility] HEMOGLOBIN 13.2 12.0 - 16.0 g/dL 08/04/2024 9:24 AM [facility] HEMATOCRIT 41.7 36.0 - 46.0 % 08/04/2024 9:24 AM [facility] MCV 100.7 84.0 - 103.0 fL 08/04/2024 9:24 AM [facility] MCH 31.9 27.0 - 34.0 pg 08/04/2024 9:24 AM [facility] MCHC 31.7 30.0 - 35.0 g/dL 08/04/2024 9:24 AM CDT [facility] PLATELETS 178 140 - 440 K/uL 08/04/2024 9:24 AM CDT [facility] MPV 10.0 8.9 - 12.8 fL 08/04/2024 9:24 AM CDT [facility] RDW 18.4(H) 11.0 - 14.5 % 08/04/2024 9:24 AM CDT [facility] RDW-STDEV 68.4(H) 37.0 - 54.0 fL 08/04/2024 9:24 AM CDT [facility] Blood Venipuncture / Unknown 08/04/2024 9:09 AM CDT 08/04/2024 9:17 AM CDT us Lenin Amezquita MD HEMATOLOGY ORDERABLES Final Resu lt Performing Organization Address City/State/[facility] Co de Phone Number [facility] CLIA # [id number] [address] [place] [address] * HCG QUANTITATIVE, BLOOD (08/04/2024 4:11 AM CDT) Pathologist [facility] HCG QUANT, BLOOD 0.1 0.0 - 1.0 mIU/mL 08/04/2024 5:12 AM CDT [facility] Comment: HCG Quantitative Reference Range Male [...] 4:11 AM CDT 08/04/2024 4:16 AM CDT Danny Mclean MD CHEMISTRY ORDERABLES Final Res ult [facility] # [id number] [facility] [address] * CTA CHEST W AND/OR WO CONTRAST [...] - 4.20 uIU/mL 08/02/2024 10:15 PM CDT [facility] Blood Venipuncture / Unknown 08/02/2024 9:23 PM CDT 08/02/2024 9:34 PM CDT us Tiffanie Childress EN[employer]EV[employer]IVIL ENGINEER CHEMISTRY ORDERABLES Final Res ult Performing Organization Address [facility] de Phone Number [facility] CLIA # [id number] [address] [address] * (ABNORMAL) VANCOMYCIN LEVEL TROUGH (07/30/2024 11:41 AM CDT) VANCOMYCIN, TROUGH 9.7(L) 10.0 - 17.0 ug/mL 07/30/2024 12:26 PM CDT [facility] Blood Venipuncture / Unknown 07/30/2024 11:41 AM CDT 07/30/2024 11:54 AM CDT us Jennifer Sanchez MD CHEMISTRY ORDERABLES Final Resu lt Performing Organization Address [facility] de Phone Number [facility] CLIA # [id number] [address] [address] * PHOSPHORUS (07/29/2024 6:04 AM CDT) Pathologist [facility] PHOSPHORUS 2.7 2.5 - 4.5 mg/dL 07/29/2024 6:50 AM CDT [facility] Blood Venipuncture / Unknown 07/29/2024 6:04 AM CDT 07/29/2024 6:08 AM CDT us Efraín Dey DO CHEMISTRY ORDERABLES Final R esult Performing Organization Address [facility] Co de Phone Number [facility] CLIA # [id number] [address] [address] [place] [address] * (ABNORMAL) HEMOGLOBIN A1C (07/28/2024 9:29 PM CDT) [facility] HEMOGLOBIN A1C 8.9(H) <=5.6 % 07/30/2024 8:43 AM CDT [facility] EST. AVG GLUCOSE, A1C 209 mg/dL 07/30/2024 8:43 AM CDT [facility] Blood Venipuncture / Unknown 07/28/2024 9:29 PM CDT 07/28/2024 9:50 PM CDT Narrative [facility] - 07/30/2024 8:43 AM CDT HGB A1C INTERPRETATION NORMAL: <5.7% PRE-DIABETES: 5.7 - 6.4% DIABETES: 6.5% OR GREATER us Efraín Dey DO CHEMISTRY ORDERABLES Final R esult Performing Organization Address [facility] Co de Phone Number [facility] CLIA # [id number] [address] [address] * EXTRA TUBE (SST/GOLD) (07/28/2024 3:47 PM CDT) Blood Venipuncture / Unknown 07/28/2024 3:47 PM CDT 07/28/2024 3:56 PM CDT us Aki Briceno DO CHEMISTRY ORDERABLES Final Re sult Performing Organization Address [facility] Co de Phone Number [facility] CLIA # [id number] [address] [address] * PNEUMONIA PATHOGEN PCR PANEL (07/23/2024 6:15 AM CDT) [facility] [facility] Pneumonia Pathogen PCR Panel NOT DETECTED No nucleic acids detected. 07/23/2024 1:18 PM CDT [facility] Sputum COUGHED SPUTUM SPECIMEN / Unknown Collection / Unknown 07/23/2024 6:15 AM CDT 07/23/2024 6:15 AM CDT Narrative [facility] - 07/23/2024 1:18 PM CDT NOTE: Per the assembler utility buildings, this current lot of reagent may be insensitive for the full detection of adenoviruses. If adenovirus is within the differential diagnosis, the specimen may be submitted to a reference laboratory for further testing. If desired, order [id number] Lab Test, stating Adenovirus by PCR testing in the ordering comment and notify the Microbiology lab at [phone]. A negative result does not exclude the [...] MICROBIOLOGY - GENERAL ORDERABLE S Final Result [facility] CLIA # [id number] [address] [address] * SPUTUM CULTURE WITH GRAM STAIN (07/23/2024 6:15 AM CDT) CULTURE No pathogens isolated. Normal respiratory kota present. 07/25/2024 7:06 AM CDT [facility] GRAM STAIN Smear contains </=10 squamous epithelial cells per low power field 07/25/2024 7:06 AM CDT [facility] GRAM STAIN <25 PMN WBC/LPF 7:06 AM CDT [facility] GRAM STAIN Mixed kota with no predominate morphology 07/25/2024 7:06 AM CDT [facility] Sputum COUGHED SPUTUM SPECIMEN / Unknown Collection / Unknown 07/23/2024 6:15 AM CDT 07/23/2024 6:15 AM CDT Yasmeen Lovett MD MICROBIOLOGY - GENERAL ORDERABLE S Final Result [id number] [address] [place] [address] * Critical Care (07/21/2024 1:16 PM CDT) Narrative Abel Singletary MD - 07/21/2024 1:16 PM CDT Abel Singletary MD 07/23/2024 10:09 AM Critical Care Performed by: Abel Gomez, PA Authorized by: Abel Singletary MD Critical [...] not difficult Staffing Performed: Anesthesiologist (/) and COMPUTER ASSEMBLER/CAA Authorized by: Aki Garcia MD Performed by: Nancy Stephen CRNA Indications and Patient Condition: Indications for Airway Management: Anesthesia Sedation Level: sedation Final Airway Details: Final Airway Type: Mask Aki Garcia MD PROCEDURE/MINOR SURGICAL ORDER JANAY Edited [...] PCR RAPID SCREEN (07/14/2024 3:44 PM CDT) Pathologist [facility] MRSA PCR RESULT MRSA not detected MRSA not detected 07/14/2024 5:12 PM CDT [facility] [employer] [facility] Surveillance ANTERIOR NARES SWAB / Unknown Collection / Unknown 07/14/2024 3:44 PM CDT 07/14/2024 3:53 PM CDT Narrative [facility] [employer] [facility] - 07/14/2024 5:12 PM CDT This assay is used to detect Methicillin-Resistant S. aureus (MRSA) colonization of the nares. PLEASE NOTE: This test has not been approved to monitor effectiveness of MRSA decolonization. Residual DNA may temporarily be present after successful decolonization. This test was performed using an FDA approved screening methodology. Nba Nguyen MD MICROBIOLOGY - GENERAL O RDERABLES Final Result [facility] CLIA # [id number] [address] [facility] [place] [address] * XR TIBIA AND FIBULA 2 VW [...] AM CDT Narrative 07/15/2024 9:45 AM CDT [facility] Noninvasive Vascular Laboratory [facility] [place] [address] Noninvasive Vascular Lab Venous Exam Unilateral Lower Extremity Duplex Patient: Le Diaz Study ID: US VENOUS DOPPLE Gender: F : 1965 Age: 59 Room: Height: 165.1cm Weight: 95.3kg BSA: 2.13m^2 Pt status: Emergency Study Date: 07/14/2024 Study Time: 09:47:06 AM BSA: 2.13m^2 Ordering: Abel Singletary Interpreting:Prince Luana Swatch Paster: Kofi Leon Indications: Extremity Edema. Summary Impression: [...] Patent; Normal phasicity; spontaneous; compressible; normal augmentation [facility] Vascular Lab is accredited with the Intersocietal Commission for the Accreditation of Vascular Laboratories (ICAVL) Prepared and Electronically Authenticated Prince Luana Confirmed 07/15/2024 09:45 Procedure Note Prince Craft MD - 07/15/2024 [facility] Noninvasive Vascular Laboratory [address] [place] [address] Noninvasive Vascular Lab Venous Exam Unilateral Lower Extremity Duplex Patient: Le Diaz Study ID: US VENOUS DOPPLE Gender: F : 1965 Age: 59 Room: Height: 165.1cm Weight: 95.3kg BSA: 2.13m^2 Pt status: Emergency Study Date: 07/14/2024 Study Time: 09:47:06 AM BSA: 2.13m^2 Ordering: Abel Singletary Interpreting:Prince Luana Swatch Paster: Kofi Leon Indications: Extremity Edema. Summary Impression: [...] femoral Patent; Normal phasicity; spontaneous;compressible; normal augmentation [facility] Lab is accredited with theIntersocietal Commission for the Accreditation of Vascular Laboratories (ICAVL) Prepared and Electronically Authenticated Prince Lele Craft 07/15/2024 09:45 us Abel Singletary MD US ORDERABLES Final Result * (ABNORMAL) SEDIMENTATION RATE (07/14/2024 8:51 AM CDT) Only the most recent of2 resultswithin the time period is included. [facility] Signature ESR (SEDIMENTATION RATE) 52(H) 0 - 20 mm/Hr 07/14/2024 11:09 AM CDT [facility] Blood Venipuncture / Unknown 07/14/2024 8:51 AM CDT 07/14/2024 8:56 AM CDT Abel Singletary MD HEMATOLOGY ORDERABLES Final Re sult Performing Organization Address [facility]/ZIP Co de Phone Number [facility] CLIA # [id number] [address] [id number] * (ABNORMAL) C-REACTIVE PROTEIN (07/14/2024 8:51 AM CDT) Only the most recent of2 resultswithin the time period is included. CRP 43.4(H) 0.0 - 5.0 mg/L 07/14/2024 11:11 AM CDT [facility] Blood Venipuncture / Unknown 07/14/2024 8:51 AM CDT 07/14/2024 8:56 AM CDT Abel Singletary MD CHEMISTRY ORDERABLES Final Res ult Performing Organization Address [facility] de Phone Number [facility] CLIA # [id number] [address] [phone] * ECHOCARDIOGRAM W/ CONTRAST AGENT (07/06/2024 9:15 AM CDT) EJECTION FRACTION 50 INTERFACE SYSTEM 07/06/2024 8:26 AM CDT Narrative INTERFACE SYSTEM - 07/06/2024 3:59 PM CDT [facility] Echocardiography Laboratory [address] [place] [address] Transthoracic Echocardiography Patient: Le Diaz Study ID: ECHO COMPLETE - Gender: F : 1965 Age: 58 Room: [facility] Study Date: 07/06/2024 Pt Status: Inpatient Study Time: 08:26:26 AM CSN #: [id number] Ordering:Raúl Rod Swatch Paster: Brenda Almanza Indications and History: Check wall [...] (H) robbie values outside specified reference range. [facility] are accredited with the Intersallegheny general hospitaletal Accreditation Commission - Echocardiography. Prepared and Electronically Authenticated Raúl Rod Confirmed 07/06/2024 15:59 Procedure Note Raúl Rod MD - 07/06/2024 [facility] Echocardiography Laboratory [facility] [place] [address] Transthoracic Echocardiography Patient: Le Diaz Study ID: ECHOCOMPLETE - Gender: F : 1965 Age: 58 Room: [facility] Study Date: 07/06/2024 Pt Status: Inpatient Study Time: 08:26:26 AM CSN #: [id number] Ordering:Raúl Rod Swatch Paster: Brenda Almanza Indications and History: Check wall [...] cm JUANY minor ax, A4C 7.4 cm UJANY minor ax, A4C mid 2.3 cm JUANY/bsa [...] (H) robbie values outside specified reference range. [facility] are accredited with theIntersocietal Accreditation Commission - Echocardiography. Prepared and Electronically Authenticated Raúl Rod Confirmed 07/06/2024 15:59 us Amhansa Rod MD US ORDERABLES Final Result INTERFACE [...] AM CDT Narrative 07/04/2024 9:25 AM CDT [facility] Noninvasive Vascular Laboratory [facility] [place] [address] Noninvasive Vascular Lab Venous Exam Unilateral Lower Extremity Duplex Patient: Le Diaz Study ID: US VENOUS DOPPLE Gender: F : 1965 Age: 58 Room: 4114 Height: 162.6cm Weight: 95.4kg BSA: 2.12m^2 Pt status: Inpatient Study Date: 07/01/2024 Study Time: 07:03:35 AM BSA: 2.12m^2 Ordering: Landon Blankenship Interpreting:Danny Lancaster Swatch Paster: Yoly Fair RVT Indications: R/o dvt. Summary [...] Patent; Normal phasicity; spontaneous; compressible; normal augmentation [facility] Lab is accredited with the Intersocietal Commission for the Accreditation of Vascular Laboratories (ICAVL) Prepared and Electronically Authenticated Danny Lancaster Confirmed 07/04/2024 09:25 Procedure Note Danny Lancaster MD - 07/04/2024 [facility] Noninvasive Vascular Laboratory [facility] [place] [address] Noninvasive Vascular Lab Venous Exam Unilateral Lower Extremity Duplex Patient: Le Diaz: [id number] Study ID: US VENOUS DOPPLE Gender: Kingsley : 1965 Age: 58 Room: 4114 Height: 162.6cm Weight: 95.4kg BSA: 2.12m^2 Pt status: Inpatient Study Date: 07/01/2024 Study Time: 07:03:35 AM BSA: 2.12m^2 Ordering: Landon Blankenship Interpreting:Danny Lancaster Swatch Paster: Yoly Fair RVT Indications: R/o dvt. Summary [...] saphenous Patent; Normal phasicity; spontaneous;compressible; normal augmentation [facility] V[facility] Lab is accredited with theIntersocietal Commission for the Accreditation of Vascular Laboratories (ICAVL) Prepared and Electronically Authenticated Danny Lancaster Confirmed 07/04/2024 09:25 us Landon Blankenship MD ORDERABLES Jana flores Result * CTA CHEST ABD PELVIS W [...] consideration. Landon Blankenship MD CT ORDERABLES Jana flores Result * CT HEAD WO CONTRAST (06/30/2024 [...] IMPRESSION: No acute intracranial abnormality. Senescent changes. us Landon Blankenship MD CT ORDERABLES Jana l Result * ETHANOL LEVEL (06/30/2024 7:59 PM CDT) ETHANOL <10.10 <10.10 mg/dL 06/30/2024 9:10 PM CDT [facility] ETHANOL % <0.01 <=0.01 %w/v 06/30/2024 9:10 PM CDT [facility] Blood Venipuncture / Unknown 06/30/2024 7:59 PM CDT 06/30/2024 8:12 PM CDT Result [facility] Aki Booth DO CHEMISTRY ORDERABLES Fi nal Result [facility] # [id number] [address] [place] [address] * Critical Care (06/30/2024 7:02 PM CDT) Narrative kAi Booth DO - 06/30/2024 7:02 PM CDT [...] of the following conditions: Cardiac failure and AXMINSTER RUG SETTER failure or compromise (Irregular heart rate, pneumonia, [...] specialty: no Care discussed with: admitting provider Aki Booth DO PROCEDURE/MINOR SURGICA L ORDERABLES Final Result * (ABNORMAL) LIPID PANEL (02/19/2024 5:29 AM HEAD ANIMAL TRAINER) CHOLESTEROL 188 <200 mg/dL 02/19/2024 10:25 AM [facility] TRIGLYCERIDE 104 <150 mg/dL 02/19/2024 10:25 AM [facility] HDL 36(L) 40 - 59 mg/dL 02/19/2024 10:25 AM [facility] LDL CALCULATED 131(H) <100 mg/dL 02/19/2024 10:25 AM [facility] NON-HDL CHOLESTEROL 152(H) <130 mg/dL 02/19/2024 10:25 AM [facility] Blood Venipuncture / Unknown 02/19/2024 5:29 AM HEAD ANIMAL TRAINER 02/19/2024 5:34 AM [facility] Narrative [facility] - 02/19/2024 10:25 AM [facility] TOTAL CHOLESTEROL mg/dL Desirable <200 Borderline high [...] Reference Ranges for Lipid Panels (NCEP/AMA) . us Mariya Artis MD CHEMISTRY ORDERABLES Final R esult [facility] CLIA # [id number] [address] [address] * MICROALBUMIN/CREATININE RATIO, RANDOM UR (02/26/2023 3:01 PM HEAD ANIMAL TRAINER) Creatinine, Urine 199 20 - 275 mg/dL [facility] MICROALBUMIN, URINE 1.9 See Note: mg/dL [facility] Comment: Reference Range: Reference Range Not established MICROALBUMIN/CREAT RATIO, UR 10 <30 mcg/mg creat [facility] Comment: The ADA defines abnormalities in [...] category. FASTING:UNKNOWN FASTING: UNKNOWN Test Performed at: [facility] [address] [place] [address] Emily Dumont MD Urine URINE SPECIMEN OBTAINED BY CLEAN CATCH PROCEDURE / Unknown 02/26/2023 3:01 PM HEAD ANIMAL TRAINER 02/26/2023 3:02 PM HEAD ANIMAL TRAINER Ryann Burk MD URINE ORDERABLES Final Result [facility] [phone] [facility] [address] [place] [address] * CERV/VAG CYTO SCREEN PAP W/HPV (01/06/2023 12:00 AM CDT) Pathologist [facility] CLINICAL INFORMATION [facility] [place] Comment:None given LAST MENSTRUAL PERIOD [facility] [place] Comment:NONE GIVEN PREV PAP: [facility] [place] Comment:NONE GIVEN PREV BX: [facility] [place] Comment:NONE GIVEN SOURCE [facility] [place] Comment:ENDOCERVIX ADEQUACY: [facility] [place] Comment: Satisfactory for evaluation. Endocervical/transformation zone component present. Age and/or menstrual status not provided PAP INTERP [facility] [place] Comment: Cytology Results: Negative for intraepithelial lesion or malignancy. COMMENT (PAP TEST) [facility] [place] Comment: This Pap test has been evaluated with computer assisted technology. INSTRUMENT REPAIR SUPERVISOR: [facility] [place] Comment: BKA, CT(ASCP) CT screening location: [place] [address] [place] [address] EXPLANATORY NOTE [facility] [place] Comment: EXPLANATORY NOTE: The Pap is a [...] information. HPV E6/E7 Not Detected Not Detected [facility] [place] Comment: Methodology: Assistant Professor Of Biology-Mediated Amplification This assay detects E6/E7 viral messenger RNA (mRNA) from 14 high-risk HPV types (16,18,31,33,35,39,45,51,52,56,58,59,66,68). Cervical sources are required for HPV testing. If a vaginal source from a patient who has had a total hysterectomy with removal of cervix was submitted, please contact the testing laboratory for alternative testing options. For additional information, please refer to http://education.Convoe/faq/DVJ404k0 (This link if provided for information/ educational purposes only.) Test Performed at: [facility] [address] [place] [address] Emily TRAN Genital SWAB OF ENDOCERVIX / Unknown 01/06/2023 01/08/2023 10:07 AM CDT Ryann Burk MD PATHOLOGY/CYTOLOGY ORDERABLES [facility] Result [facility] [phone] [facility] [address] [place] [address] * MAMMO DIAGNOSTIC UNI RIGHT W OR [...] beginning with ultrasound should be undertaken. Manny Kylie Javed MD MAMMO ORDERABLES Final Res ult from Last 3 Months or Most Recently Relevant to Health Maintenance Additional Health Concerns Active Problems Noted Date Diagnosed Date Heart Failure Problem 05/12/2024 [place] * Guarantor: LE DIAZ Account Type Relation to Patient Date of Phone Billing Address Personal/Family [address] [place] [address] RX INFOCROSSING Medicaid RX [employer] (INTERNAL) [facility] MEDICAID [address] [place] [address] Advance Directives For more information, please contact: [phone] Documents on File Type Date Recorded Patient Bill Collector Expl anation Advance Directive Living Will 07/23/2023 [...] 9:59 PM 08/16/2024 3:32 PM Care Teams Grease Maker Head Relationship Specialty Start Date End Date Delta Wade MD [address] [address] PCP - General Family Practice 03/25/24
--- OUTSIDE RECORDS SUMMARY | 2024-09-18 16:45 | XMS_ITS | CCD ---
Author Name Interface, [id number] Address [facility] [place] [address] [facility] Address [address] [place] [address] Care Team Providers Care Unmanned Aircraft Systems Roboticist Name Role Phone Anika VALLADARES, Allen Unavailable Unavailable Allergies and Adverse Reactions Reason for Visit Medications Problems Social History
[2024-09-18 16:53] VITALS: BP 144/82; PULSE 102; TEMP 36.7; O2SAT 94
--- NOTE | 2024-09-18 16:58 | ECG_ITS ---
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 Measurements Intervals [place] Rate: 103 P: 27 [place]: 161 QRS: 42 QRSD: 84 T: 13 QT: 335 QTc: 441 Interpretive Statements SINUS TACHYCARDIA POSSIBLE LEFT ATRIAL ENLARGEMENT [-0.1mV P-WAVE IN V1/V2] NONSPECIFIC T-WAVE ABNORMALITY ABNORMAL RHYTHM ECG INTERPRETATION BASED ON A DEFAULT AGE OF 40 YEARS Compared to ECG 09/18/2024 04:30:41 Sinus rhythm no longer present T-wave abnormality still present Electronically Signed On 09-22-2024 09:36:37 CDT by David Escalante M.D. [email or web address]
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
[2024-09-18 18:06] LABS: Bilirubin Urine Negative (Negative); Blood Urine Negative (Negative); Glucose Urine UA 2+ (Normal); Ketones Urine Negative (Negative); Leukocyte Esterase Urine Negative (Negative); Nitrate Urine Negative (Negative); Protein Urine Negative (Negative); Urine Appearance Clear (CLEAR); Urine Color Yellow (Yellow); pH Urine 6.5 (5-7)
[2024-09-18 18:11] LABS: Bacteria Urine 2+ /hpf; Squamous Epithelial Cell Urine 0-5 /hpf (0-5); WBC Urine 0-5 /hpf (0-5)
[2024-09-18 18:14] LABS: Amphetamines Screen Urine Negative (Negative); Barbiturates Screen Urine Negative (Negative); Benzodiazepines Screen Urine Positive (Negative); Cocaine Screen Urine Negative (Negative); Opiate Screen Urine Negative (Negative); PCP Screen Urine Negative (Negative); THC Screen Urine Negative (Negative)
[2024-09-18 18:32] LABS: Add Urine Culture? Yes; Specific Gravity, Urine 1.039 (1.005-1.030); UA Slide Review UA Slide Review Perf
[2024-09-18 18:37] LABS: Influenza A NEGATIVE (Negative); Influenza B NEGATIVE (Negative); Respiratory Syncytial Virus Ce NEGATIVE (Negative); SARS-CoV-2 PCR NEGATIVE (Negative)
== END 2024-09-18 18:09 | disposition left against medical advice (07) ==
PROVIDERS: Emergency Provider Emergency Medicine; PCP Family Medicine
DX: J44.9 Chronic obstructive pulmonary disease, unspecified (principal); Z53.21 Procedure and treatment not carried out due to patient leaving prior to being seen by health care provider; Z79.01 Long term (current) use of anticoagulants; Z79.4 Long term (current) use of insulin; Z87.891 Personal history of nicotine dependence; E11.9 Type 2 diabetes mellitus without complications; I25.10 Atherosclerotic heart disease of native coronary artery without angina pectoris; I10 Essential (primary) hypertension
CPT/HCPCS: 80306; 81001; 87077; 87086; 87186; 87637; 93005; 99284

== ENCOUNTER 2024-09-18 21:18 | Emergency (ER) | payer MEDICAID, SELFPAY ==
--- OUTSIDE RECORDS SUMMARY | 2020-06-27 10:30 | XMS_ITS | Continuity of Care Document ---
Author Organization [facility] Address [address] [place] [address] Phone Care Team Providers Care Tree Doctor Name Role Phone Unavailable Unavailable Unavailable Allergies, [...] - Active Procedures Procedure Date OFFICE/OUTPATIENT VISIT, [facility] Advance Directives Directive Yes / No Effective Date File Name No Information Encounters Encounter Description Practice Location Reason(s) For Visit Diagnoses Date Provider Providers Copied on Encounter OFFICE/OUTPA TIENT VISIT, [facility], [address], [place], [place], [address] , [place] tel: [phone] [facility] follow up [...] party ID Authoriza dioni(s) Medicaid - Medical [id number] Social History Type Description Quantity Date Captured [...] her vagina and is being managed at [facility]. Patient has HTN, hip pain, and [...] her vagina and is being managed at [facility]. Patient has HTN, hip pain, and [...]
--- OUTSIDE RECORDS SUMMARY | 2024-09-10 11:40 | XMS_ITS | Encounter Summary ---
Author Organization [facility] Address [address] [place] [address] Care Team Providers Care Cuff Setter Lockstitch Name Role Phone Delta Wade MD Primary Care Provider [phone] Reason for Visit * Reason Comments Fluid Management Pt stated she is her e for fluid management day 2. Pt stated she is having shortness of breath and takes a diuretic at home. Pt family stated she is worse today. * Auth/Cert (Routine) Specialty Diagnoses / Procedures Referred By Marcelle smith Referred To Contact Emergency Medicine [facility] Emergency Department [address] [place] [phone] Phone: tel: fax: Referral ID Status Reason Start Date Expiration Date Visits Re quested Visits Authorized [id number] 1 1 Encounter Details Date Type Department Care Team (Latest Contact Info) Description 09/10/2024 11:40 AM CDT - 09/10/2024 11:59 PM T Hospital Encounter [facility] [address] [place] [phone] Don Causey DO [address] [facility] [address] [place] [address] Discharge Disposition: Home or Self [...] How often do you attend chur or druze services? 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 Return to the [facility] if any [...] with Josie. 12/29/2022 naloxone (NARCAN) 4 mg/spray [place], Non-Aerosol EMERGENCY USE ONLY: Administer 1 spray [...] PLAN: ICD-10-CM ICD-9-CM 1. COPD with exacerbation (CMS/[facility]) J44.1 491.21 documented in this encounter Plan of Treatment Upcoming Encounters Date Type Department Care Team (Late st Contact Info) Description 09/22/2024 10:00 AM CDT Office Visit [facility] Neurosurgery [address] [place] [address] [place] [address] Jerson Salas PA [address] [place] [address] 10/06/2024 4:00 PM CDT Office Visit [facility] Pulmonology [place] [address] [place] [address] Cristian Metcalf FNP [address] [place] [address] documented as of this encounter [...] encounter Visit Diagnoses Diagnosis COPD with exacerbation ([facility])- Primary Obstructive chronic bronchitis with [...] documented as of this encounter Care Teams Cuff Setter Lockstitch Relationship Specialty Start Date End Date Delta Wade MD [address] [address] PCP - General Family Practice 03/25/24 documented as of this encounter
--- OUTSIDE RECORDS SUMMARY | 2024-09-10 12:46 | XMS_ITS | Encounter Summary ---
Author Organization [facility] Address [address] [place] [address] Care Team Providers Care Telegraph Repeater Installer Name Role Phone Delta Wade MD Primary Care Provider [phone] Reason for Visit * Auth/Cert (Routine) Specialty Diagnoses / Procedures Referred By Marcelle smith Referred To Contact Emergency Medicine [facility] Emergency Department [address] [place] [phone] Phone: tel: fax: Referral ID Status Reason Start Date Expiration Date Visits Re quested Visits Authorized [id number] 1 1 Encounter Details Date Type Department Care Team (Latest Contact Info) Description 09/10/2024 12:46 PM CDT - 09/10/2024 11:59 PM CDT Hospital Encounter [facility] [address] [place] [phone] Don Causey DO [address] [place] [address] Discharge Disposition: Home or Self [...] often do you attend chur ch or anabaptism services? 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 1 Each 08/27/2023 TechLITE Pen Needle 29 gauge x 1/2 Needle USE directed with Vicdenise. 12/29/2022 naloxone (NARCAN) 4 mg/spray [place], Non-Aerosol EMERGENCY USE ONLY: Administer 1 spray (4 mg) in one nostril one time. May repeat in alternating nostrils every 2-3 min until responsive or EMS arrives. 2 Each 3 01/06/2023 blood sugar diagnostic StripIndications: Type 2 diabetes mellitus without complication, without long-term current use of insulin ([facility]) Use to test blood glucose up to QID PRN symptoms. 100 Each 11 12/17/2022 OneTouch Delica Plus Lancet 30 gauge USE TO test fasting blood glucose DAILY 11/04/2022 Blood-Glucose Meter KitIndications:Ty pe 2 diabetes mellitus without complication, without long-term current use of insulin ([facility]) Use to test blood glucose up to [...] Description 09/22/2024 10:00 AM CDT Office Visit [facility] Neurosurgery [address] [place] [address] Jerson Salas PA [address] [place] [address] 10/06/2024 4:00 PM CDT Office Visit [facility] Pulmonology [address] [place] [address] Cristian Metcalf FNP [address] [place] [address] documented as of this encounter [...] documented as of this encounter Care Teams Telegraph Repeater Installer Relationship Specialty Start Date End Date Delta Wade MD [address] [place] [id number] PCP - General Family Practice 03/25/24 documented as of this encounter
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
--- OUTSIDE RECORDS SUMMARY | 2024-09-12 21:13 | XMS_ITS | Encounter Summary ---
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 Pts breathing is labored upon arrival, O2 saturation 93%. [facility] * oRbbie Yen, - 09/12/2024 9:09 PM CDTAssociated Order(s): [...] Arthritis, Arthropathy, unspecified, site unspecified, Atrial flutter ([facility]), Bipolar affective disorder ([facility] Breast cancer ([facility]) (2001), Breast mass (08/22/2010), Cervical neck pain with evidence of disc disease, Chronic hepatic failure ([facility]), Congenital absence of uterus, Congenital absence of vagina, Congenital anomaly, Congestive heart failure ([facility]), Coronary artery disease, Deep vein thrombosis (DVT) ([facility]) (2023), Depression (08/22/2010), Diabetes mellitus ([facility]) (2023), Difficult intravenous access, Dyspnea (08/15/2024), Dyspnea on exertion, Emphysema of lung (CMS/HCC), GERD (gastroesophageal reflux disease), H/O heart artery stent, H/O mastectomy, right, 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), Hereditary hemochromatosis, abnormal cervical Pap smear, Hyperlipidemia, Ischemic cardiomyopathy, Lower extremity edema, OK (myocardial infarction) (CMS/HCC) (2015), Neuropathy, NSTEMI (non-ST elevated myocardial infarction) (CMS/HCC) (06/06/2023), NSTEMI (non-ST elevated myocardial infarction) ([facility]/HCC), Paroxysmal A-fib ([facility]), Paroxysmal atrial tachycardia, Pneumonia due to COVID-19 virus, Polycythemia, Primary hereditary hemochromatosis (12/13/2010), Unspecified essential hypertension, and Vaginal cancer ([facility]) (2019). SURGICAL: Patient has a past [...] Added Bipolar affective disorder, currently depressed, moderate ([facility]) [F31.32] Robbie Yen DO 09/12/2024 11:06 PM HEENA (generalized anxiety disorder) [F41.1] Robbie Yen DO 09/12/2024 11:06 PM Protein-calorie malnutrition, moderate [E44.0] Robbie Yen DO 09/12/2024 11:06 PM H/O mastectomy, right [Z90.11] Robbie Yen DO 09/12/2024 11:06 PM Chronic combined systolic and diastolic heart failure ([facility]/HCC) [I50.42] Robbie Yen DO 09/12/2024 11:06 PM COPD exacerbation ([facility]) [J44.1] Robbie Yen DO 09/12/2024 11:06 PM Opioid dependence with opioid-induced disorder ([facility]) [F11.29] Robbie Yen DO 09/12/2024 11:06 [...] Friend Prescription coverage: yes Preferred Pharmacy verified: [id number] - [place], [place] - [address] Insurance coverage verified: Payor: MEDICAID / Plan: MEDICAID [place] / Product Type: Medicaid / Secondary Insurance:N/A [...] multiple medication modalities, including oxyCODONE- acetaminophen in [facility] and HYDROmorphone (PF). Infection Risk/Actual: [...] ID# (If using facility equipment): Vent ID: [id number] (09/13/241917) CPAP Daily Charge: *CPAP Daily Charge: [...] ID# (If using facility equipment): Vent ID: [id number] (09/13/241917) CPAP Daily Charge: *CPAP Daily Charge: [...] 12/29/22 Provider, Historical naloxone (NARCAN) 4 mg/spray Bixby, Non-Aerosol EMERGENCY USE ONLY: Administer 1 spray [...] Description 09/22/2024 10:00 AM CDT Office Visit [facility] Neurosurgery [address] [place] [address] Jerson Salas PA [address] [place] [address] 10/06/2024 4:00 PM CDT Office Visit [facility] Pulmonology [address] [place] [phone] Cristian Metcalf, [facility] [address] [place] [phone] Scheduled Orders Name Type Priority Associated Diagnoses Orde r Schedule MRI LUMBAR W WO CONTRAST Imaging Routine Closed fracture of first lumbar vertebra, unspecified fracture morphology, initial encounter ([facility]) Expected: 09/22/2024, Expires: 09/15/2025 IR SPINAL INTERVENTION Imaging Routine Closed fracture of first lumbar vertebra, unspecified fracture morphology, initial encounter ([facility]) Expected: 09/22/2024, Expires: 09/15/2025 documented as [...] 2.2(H) <=2.0 mmol/L 09/15/2024 8:42 AM CDT [facility] Blood Venipuncture / Unknown 09/15/2024 8:00 AM CDT 09/15/2024 8:03 AM CDT Michael Tovar MD CHEMISTRY ORDERABLES Final Result Performing Organization Address City/State/[facility] Co de Phone Number [facility] CLIA # [id number] [address] [address] * (ABNORMAL) COMPREHENSIVE METABOLIC PANEL (09/15/2024 8:00 AM CDT) Pathologist [facility] SODIUM 138 136 - 145 mmol/L 09/15/2024 10:22 AM CDT [facility] POTASSIUM 4.4 3.5 - 5.1 mmol/L 09/15/2024 10:22 AM CDT [facility] CHLORIDE 101 98 - 107 mmol/L 09/15/2024 10:22 AM CDT [facility] CO2 20(L) 22 - 29 mmol/L 09/15/2024 10:22 AM CDT [facility] CALCIUM 8.9 8.6 - 10.0 mg/dL 09/15/2024 10:22 AM CDT [facility] BUN 18 6 - 20 mg/dL 09/15/2024 10:22 AM CDT [facility] CREATININE 0.51 0.51 - 0.95 mg/dL 09/15/2024 10:22 AM [facility] GLUCOSE 238(H) 74 - 99 mg/dL 09/15/2024 10:22 AM [facility] TOTAL PROTEIN 6.2(L) 6.4 - 8.3 g/dL 09/15/2024 10:22 AM [facility] ALBUMIN 3.4(L) 3.5 - 5.2 g/dL 09/15/2024 10:22 AM [facility] BILIRUBIN TOTAL 0.3 0.0 - 1.0 mg/dL 09/15/2024 10:22 AM [facility] ALKALINE PHOSPHATASE 102 35 - 104 U/L 09/15/2024 10:22 AM [facility] AST 17 10 - 35 U/L 09/15/2024 10:22 AM [facility] Comment:Hemolysis present. R esult may be falsely elevated. ALT 39(H) <=35 U/L 09/15/2024 10:22 AM [facility] GFR >60 >=60 mL/min/1.7 3 sq meter 09/15/2024 10:22 AM [facility] Comment:eGFR calculated with 2020 CKD-EPI equation. Vegetarian diet, extremely high or low muscle mass, and may affect results. Cystatin C with Glomerular Filtration Rate is a suitable alternative for these patients. ANION GAP 17 9 - 20 mmol/L 09/15/2024 10:22 AM [facility] Blood Venipuncture / Unknown 09/15/2024 8:00 AM CDT 09/15/2024 8:03 AM T us Michael oTvar MD CHEMISTRY ORDERABLES Final Result [facility] CLIA # [id number] [address] [place] [address] * PROTIME-INR (09/15/2024 8:00 AM CDT) Pathologist [facility] PROTIME 13.8 12.7 - 14.9 Seconds 09/15/2024 8:42 AM CDT [facility] INR 1.0 0.8 - 1.2 09/15/2024 8:42 AM CDT [facility] Blood Venipuncture / Unknown 09/15/2024 8:00 AM CDT 09/15/2024 8:03 AM CDT Narrative [facility] - 09/15/2024 8:42 AM CDT Expected Values for INR: DVT/PE Goal INR 2.5; range 2.0 - 3.0 Valve Replacement Tissue Goal INR 2.5; range 2.0 - 3.0 Valve Replacement Mechanical Goal INR 3.0; range 2.5 - 3.5 POST-OK Goal INR 2.5; range 2.0 - 3.0 or Goal INR 3.0; range 2.5 - 3.5 Atrial Fibrillation Goal INR 2.5; range 2.0 - 3.0 Ischemic Stroke Goal INR 2.5; range 2.0 - 3.0 Michael Tovar MD HEMATOLOGY ORDERABLES Final Result [facility] CLIA # [id number] [address] [place] [address] * (ABNORMAL) POC GLUCOSE (09/15/2024 7:26 AM CDT) [facility] GLUCOSE POC 202(H) 74 - 99 mg/dL 09/15/2024 7:26 AM CDT [facility] SPECIMEN SOURCE, GLUCOSE POC Capillary 09/15/2024 7:26 AM CDT [facility] Blood, whole 09/15/2024 7:26 AM CDT 09/15/2024 7:42 AM CDT us Michael Tovar MD POINT OF CARE TESTING Final Result [facility] CLIA # [id number] [facility] [address] * (ABNORMAL) POC GLUCOSE (09/14/2024 8:55 PM CDT) GLUCOSE POC 346(H) 74 - 99 mg/dL 09/14/2024 8:55 PM CDT [facility] SPECIMEN SOURCE, GLUCOSE POC Capillary 09/14/2024 8:55 PM CDT [facility] COMMENT, GLU POC Notified Caregiver 09/14/2024 8:55 PM CDT [facility] COMMENT 2, GLU POC Result Verified 09/14/2024 8:55 PM CDT [facility] Blood, whole 09/14/2024 8:55 PM CDT 09/14/2024 11:53 PM CDT us Michael Tovar MD POINT OF CARE TESTING Final Result Performing Organization Address [facility]/ZIP Co de Phone Number [facility] CLIA # [id number] [address] [id number] * (ABNORMAL) LACTIC ACID (09/14/2024 5:41 PM CDT) LACTIC ACID 4.7(HH) <=2.0 mmol/L 09/14/2024 6:38 PM CDT [facility] Blood Venipuncture / Unknown 09/14/2024 5:41 PM CDT 09/14/2024 5:47 PM CDT Michael Tovar MD CHEMISTRY ORDERABLES Final Result [facility] CLIA # [id number] [address] [address] * (ABNORMAL) POC GLUCOSE (09/14/2024 4:29 PM CDT) [facility] GLUCOSE POC 411(HH) 74 - 99 mg/dL 09/14/2024 4:29 PM CDT [facility] SPECIMEN SOURCE, GLUCOSE POC Capillary 09/14/2024 4:29 PM CDT [facility] Blood, whole 09/14/2024 4:29 PM CDT 09/14/2024 5:29 PM CDT Michael Tovar MD POINT OF CARE TESTING Final Result [facility] CLIA # [id number] [address] [place] [address] * (ABNORMAL) COMPREHENSIVE METABOLIC PANEL (09/14/2024 12:08 PM CDT) [facility] SODIUM 140 136 - 145 mmol/L 09/14/2024 12:51 PM CDT [facility] POTASSIUM 3.8 3.5 - 5.1 mmol/L 09/14/2024 12:51 PM CDT [facility] CHLORIDE 97(L) 98 - 107 mmol/L 09/14/2024 12:51 PM CDT [facility] CO2 29 22 - 29 mmol/L 09/14/2024 12:51 PM CDT [facility] CALCIUM 9.2 8.6 - 10.0 mg/dL 09/14/2024 12:51 PM CDT [facility] BUN 21(H) 6 - 20 mg/dL 09/14/2024 12:51 PM CDT [facility] CREATININE 0.65 0.51 - 0.95 mg/dL 09/14/2024 12:51 PM CDT [facility] GLUCOSE 349(H) 74 - 99 mg/dL 09/14/2024 12:51 PM CDT [facility] TOTAL PROTEIN 6.3(L) 6.4 - 8.3 g/dL 09/14/2024 12:51 PM CDT [facility] ALBUMIN 3.6 3.5 - 5.2 g/dL 09/14/2024 12:51 PM CDT [facility] BILIRUBIN TOTAL 0.3 0.0 - 1.0 mg/dL 09/14/2024 12:51 PM CDT [facility] ALKALINE PHOSPHATASE 103 35 - 104 U/L 09/14/2024 12:51 PM CDT [facility] AST 22 10 - 35 U/L 09/14/2024 12:51 PM CDT [facility] Comment:Hemolysis present. R esult may be falsely elevated. ALT 44(H) <=35 U/L 09/14/2024 12:51 PM T [facility] GFR >60 >=60 mL/min/1.7 3 sq meter 09/14/2024 12:51 PM T [facility] Comment:eGFR calculated with 2020 CKD-EPI equation. Vegetarian diet, extremely high or low muscle mass, and may affect results. Cystatin C with Glomerular Filtration Rate is a suitable alternative for these patients. ANION GAP 14 9 - 20 mmol/L 09/14/2024 12:51 PM CDT [facility] Blood Venipuncture / Unknown 09/14/2024 12:08 PM CDT 09/14/2024 12:13 PM CDT us Michael Tovar MD CHEMISTRY ORDERABLES Final Result [facility] CLIA # [id number] [address] [address] [place], [place] [id number] * (ABNORMAL) CBC WITH DIFFERENTIAL (09/14/2024 12:08 PM CDT) WBC 10.9(H) 4.8 - 10.8 K/uL 09/14/2024 12:24 PM [facility] NRBCS 5(H) <1 % 09/14/2024 12:24 PM [facility] RBC 3.47(L) 4.20 - 5.40 M/uL 09/14/2024 12:24 PM [facility] HEMOGLOBIN 10.8(L) 12.0 - 16.0 g/dL 09/14/2024 12:24 PM [facility] HEMATOCRIT 35.2(L) 36.0 - 46.0 % 09/14/2024 12:24 PM [facility] MCV 101.4 84.0 - 103.0 fL 09/14/2024 12:24 PM [facility] MCH 31.1 27.0 - 34.0 pg 09/14/2024 12:24 PM [facility] MCHC 30.7 30.0 - 35.0 g/dL 09/14/2024 12:24 PM [facility] PLATELETS 172 140 - 440 K/uL 09/14/2024 12:24 PM [facility] MPV 11.2 8.9 - 12.8 fL 09/14/2024 12:24 PM [facility] RDW 18.9(H) 11.0 - 14.5 % 09/14/2024 12:24 PM [facility] RDW-STDEV 69.1(H) 37.0 - 54.0 fL 09/14/2024 12:24 PM [facility] NEUTROPHILS 88(H) 42 - 75 % 09/14/2024 12:24 PM [facility] LYMPHOCYTES 7(L) 24 - 44 % 09/14/2024 12:24 PM [facility] MONOCYTES 4 2 - 10 % 09/14/2024 12:24 PM [facility] EOSINOPHILS 0 0 - 7 % 09/14/2024 12:24 PM [facility] BASOPHILS 0 0 - 1 % 09/14/2024 12:24 PM CDT [facility] IMMATURE GRANULOCYTES 2 0 - 2 % 09/14/2024 12:24 PM CDT [facility] NEUTROPHIL ABSOLUTE 9.62(H) 2.00 - 8.00 K/uL 09/14/2024 12:24 PM CDT [facility] LYMPHOCYTE ABSOLUTE 0.71(L) 1.20 - 4.00 K/uL 09/14/2024 12:24 PM CDT [facility] MONOCYTE ABSOLUTE 0.38 0.10 - 0.60 K/uL 09/14/2024 12:24 PM CDT [facility] EOSINOPHIL ABSOLUTE 0.02 0.00 - 0.70 K/uL 09/14/2024 12:24 PM CDT [facility] BASOPHILS ABSOLUTE 0.02 0.00 - 0.20 K/uL 09/14/2024 12:24 PM CDT [facility] IMMATURE GRANULOCYTES ABSOLUTE 0.19(H) 0.00 - 0.10 K/uL 09/14/2024 12:24 PM CDT [facility] SMEAR REVIEWED: NN - No Action Needed 09/14/2024 12:24 PM [facility] Blood Venipuncture / Unknown 09/14/2024 12:08 PM CDT 09/14/2024 12:13 PM CDT Michael Tovar MD HEMATOLOGY ORDERABLES Final Result [facility] CLIA # [id number] [address] [place] [address] [place] [address] * (ABNORMAL) POC GLUCOSE (09/14/2024 11:25 AM CDT) GLUCOSE POC 386(H) 74 - 99 mg/dL 09/14/2024 11:25 AM CDT [facility] SPECIMEN SOURCE, GLUCOSE POC Capillary 09/14/2024 11:25 AM CDT [facility] Blood, whole 09/14/2024 11:2 5 AM CDT 09/14/2024 11:38 AM CDT Michael Tovar MD POINT OF CARE TESTING Final Result Performing Organization Address City/[facility]/ZIP Co de Phone Number [facility] CLIA # [id number] [address] [address] [place], [place] [address] * (ABNORMAL) POC GLUCOSE (09/14/2024 7:43 AM CDT) GLUCOSE POC 165(H) 74 - 99 mg/dL 09/14/2024 7:43 AM CDT [facility] SPECIMEN SOURCE, GLUCOSE POC Capillary 09/14/2024 7:43 AM CDT [facility] Blood, whole 09/14/2024 7:43 AM CDT 09/14/2024 8:02 AM CDT Michael Tovar MD POINT OF CARE TESTING Final Result Performing Organization Address City/[facility]/ZIP Co de Phone Number [facility] CLIA # [id number] [address] [address] * (ABNORMAL) BLOOD GAS ARTERIAL (09/13/2024 8:22 PM CDT) PH BLOOD POC 7.40 7.35 - 7.45 09/13/2024 8:22 PM CDT [facility] PCO2 POC 54(H) 35 - 45 mm Hg 09/13/2024 8:22 PM CDT [facility] PO2 POC 44(L) 80 - 105 mm Hg 09/13/2024 8:22 PM CDT [facility] HCO3 (CALC) POC 33(H) 22 - 26 mmol/L 09/13/2024 8:22 PM [facility] HEMOGLOBIN POC 10.8(L) 12.0 - 18.0 g/dL 09/13/2024 8:22 PM [facility] BASE EXCESS POC 9(H) -2 - 3 mmol/L 09/13/2024 8:22 PM [facility] O2 SATURATION POC 78(L) 95 - 98 % 09/13/2024 8:22 PM [facility] SODIUM POC 136(L) 138 - 146 mmol/L 09/13/2024 8:22 PM [facility] POTASSIUM POC 4.2 3.5 - 4.9 mmol/L 09/13/2024 8:22 PM [facility] HEMATOCRIT POC 32(L) 38 - 51 % 09/13/2024 8:22 PM [facility] PH TEMP CORRECT 7.40 7.35 - 7.45 09/13/2024 8:22 PM [facility] PCO2 TEMP CORRECT 54(H) 35 - 45 mm Hg 09/13/2024 8:22 PM [facility] PO2 TEMP CORRECT 44(L) 80 - 105 mm Hg 09/13/2024 8:22 PM [facility] SPECIMEN SOURCE, GASES POC Arterial 09/13/2024 8:22 PM [facility] CALCIUM IONIZED POC 5.1 4.8 - 5.2 mg/dL 09/13/2024 8:22 PM [facility] TCO2 (CALC) POC 35(H) 23 - 27 mmol/L 09/13/2024 8:22 PM [facility] LITER FLOW 3.0 L/min 09/13/2024 8:22 PM [facility] PUNC SITE POC ART PUNCT 09/13/2024 8:22 PM [facility] SOURCE OF OXYGEN POC Cannula 09/13/2024 8:22 PM [facility] Blood, arterial 09/13/2024 8 :22 PM CDT 09/13/2024 8:24 PM CDT Peña Mata MD ABG ORDERABLES Final Re sult [facility] # [id number] [address] [facility] [place] [address] * XR THORACOLUMBAR SPINE 2 VW (09/13/2024 [...] - 99 mg/dL 09/13/2024 7:35 PM CDT [facility] SPECIMEN SOURCE, GLUCOSE POC Capillary 09/13/2024 7:35 PM CDT [facility] COMMENT, GLU POC Notified Caregiver 09/13/2024 7:35 PM CDT [facility] COMMENT 2, GLU POC Result Verified 09/13/2024 7:35 PM CDT [facility] Blood, whole 09/13/2024 7:35 PM CDT 09/13/2024 8:44 PM CDT Peña Mata MD POINT OF CARE TESTING Fi nal Result Performing Organization Address [facility] Co de Phone Number [facility] CLIA # [id number] [address] [address] * (ABNORMAL) POC GLUCOSE (09/13/2024 5:19 PM CDT) GLUCOSE POC 371(H) 74 - 99 mg/dL 09/13/2024 5:19 PM CDT [facility] SPECIMEN SOURCE, GLUCOSE POC Capillary 09/13/2024 5:19 PM CDT [facility] COMMENT, GLU POC Result Verified 09/13/2024 5:19 PM CDT [facility] Blood, whole 09/13/2024 5:19 PM CDT 09/13/2024 5:34 PM CDT Peña Mata MD POINT OF CARE TESTING Fi nal Result Performing Organization Address [facility]/ZIP Co de Phone Number [facility] CLIA # [id number] [address] [address] * (ABNORMAL) POC LACTIC ACID (09/13/2024 2:52 PM CDT) [facility] LACTIC ACID POC 3.2(H) <=2.0 mmol/L 09/13/2024 2:52 PM CDT [facility] SPECIMEN SOURCE, GASES POC Arterial 09/13/2024 2:52 PM CDT [facility] PUNC SITE POC ART PUNCT 09/13/2024 2:52 PM CDT [facility] Blood 09/13/2024 2:52 PM CDT 09/13/2024 2:55 PM CDT [facility] - 09/13/2024 2:52 PM CDT References ranges displayed are for Arterial samples. Peña Mata MD POINT OF CARE TESTING Fi nal Result [facility] CLIA # [id number] [address] [place] [id number] * (ABNORMAL) BLOOD GAS ARTERIAL (09/13/2024 2:52 PM CDT) [facility] PH BLOOD POC 7.37 7.35 - 7.45 09/13/2024 2:52 PM CDT [facility] PCO2 POC 57(H) 35 - 45 mm Hg 09/13/2024 2:52 PM CDT [facility] PO2 POC 67(L) 80 - 105 mm Hg 09/13/2024 2:52 PM CDT [facility] HCO3 (CALC) POC 33(H) 22 - 26 mmol/L 09/13/2024 2:52 PM CDT [facility] HEMOGLOBIN POC 11.2(L) 12.0 - 18.0 g/dL 09/13/2024 2:52 PM CDT [facility] BASE EXCESS POC 8(H) -2 - 3 mmol/L 09/13/2024 2:52 PM CDT [facility] O2 SATURATION POC 95 95 - 98 % 09/13/2024 2:52 PM CDT [facility] SODIUM POC 133(L) 138 - 146 mmol/L 09/13/2024 2:52 PM T [facility] POTASSIUM POC 4.2 3.5 - 4.9 mmol/L 09/13/2024 2:52 PM [facility] HEMATOCRIT POC 34(L) 38 - 51 % 09/13/2024 2:52 PM CDT [facility] PH TEMP CORRECT 7.37 7.35 - 7.45 09/13/2024 2:52 PM CDT [facility] PCO2 TEMP CORRECT 57(H) 35 - 45 mm Hg 09/13/2024 2:52 PM CDT [facility] PO2 TEMP CORRECT 67(L) 80 - 105 mm Hg 09/13/2024 2:52 PM CDT [facility] SPECIMEN SOURCE, GASES POC Arterial 09/13/2024 2:52 PM CDT [facility] CALCIUM IONIZED POC 5.0 4.8 - 5.2 mg/dL 09/13/2024 2:52 PM T [facility] TCO2 (CALC) POC 35(H) 23 - 27 mmol/L 09/13/2024 2:52 PM [facility] LITER FLOW 3.0 L/min 09/13/2024 2:52 PM [facility] PUNC SITE POC ART PUNCT 09/13/2024 2:52 PM CDT [facility] SOURCE OF OXYGEN POC Cannula 09/13/2024 2:52 PM T [facility] Blood, arterial 09/13/2024 2 :52 PM CDT 09/13/2024 2:55 PM CDT Peña Mata MD ABG ORDERABLES Final Re sult [facility] CLIA # [id number] [address] [address] [place] [address] * BLOOD CULTURE (09/13/2024 2:15 PM CDT) BLOOD CULTURE No growth 09/18/2024 3:31 PM CDT [facility] Blood (Peripheral) Venipuncture / Unknown 09/13/2024 2:15 PM CDT 09/13/2024 2:38 PM CDT us Peña Mata MD MICROBIOLOGY - GENERAL O RDERABLES Final Result [facility] CLIA # [id number] [facility] [address] * US ABDOMEN LIMITED (09/13/2024 1:27 PM [...] and/or colonizing bacteria 09/14/2024 11:22 AM CDT [facility] Urine URINE SPECIMEN OBTAINED BY CLEAN CATCH PROCEDURE / Unknown Collection / Unknown 09/13/2024 1:12 PM CDT 09/13/2024 1:20 PM CDT Peña Mata MD MICROBIOLOGY - GENERAL O RDERABLES Final Result [facility] CLIA # [id number] [facility] [address] [place] [address] * EXTRA TUBE (URINE [place]) (09/13/2024 1:12 PM CDT) Urine URINE SPECIMEN OBTAINED BY CLEAN CATCH PROCEDURE / Unknown Collection / Unknown 09/13/2024 1:12 PM CDT 09/13/2024 1:20 PM CDT Peña Mata MD URINE ORDERABLES Final R esult [facility] CLIA # [id number] [address] [address] [place] [address] * (ABNORMAL) URINALYSIS WITH REFLEX MICROSCOPIC (09/13/2024 1:12 PM CDT) COLOR UA Colorless(A ) Pale to Dark Yellow 09/13/2024 1:29 PM CDT [facility] CLARITY UA Clear Clear 09/13/2024 1:29 PM CDT [facility] SPECIFIC GRAVITY UA 1.012 1.003 - 1.035 09/13/2024 1:29 PM T [facility] PH UA 5.5 5.0 - 8.0 09/13/2024 1:29 PM T [facility] LEUKOCYTE ESTERASE UA 2+(A) Negative 09/13/2024 1:29 PM T [facility] NITRITE UA Negative Negative 09/13/2024 1:29 PM CDT [facility] PROTEIN UA Negative Negative 09/13/2024 1:29 PM CDT [facility] GLUCOSE UA 2+(A) Negative 09/13/2024 1:29 PM CDT [facility] KETONES UA Negative Negative 09/13/2024 1:29 PM T [facility] UROBILINOGEN UA <2.0 <2.0 mg/dL 1:29 PM T [facility] BILIRUBIN UA Negative Negative 09/13/2024 1:29 PM CDT [facility] BLOOD UA Negative Negative 09/13/2024 1:29 PM CDT [facility] WBC UA 0-2 0 - 2 /hpf 09/13/2024 1:29 PM CDT [facility] RBC UA 0-2 0 - 2 /hpf 09/13/2024 1:29 PM CDT [facility] BACTERIA UA 2+(A) Negative /hpf 09/13/2024 1:29 PM CDT [facility] EPITHELIAL CELLS, URINE 0-5 0 - 5 /hpf 09/13/2024 1:29 PM CDT [facility] HYALINE CAST 0-2 None Seen, 0-2 /lpf 09/13/2024 1:29 PM CDT [facility] Urine URINE SPECIMEN OBTAINED BY CLEAN CATCH PROCEDURE / Unknown Collection / Unknown 09/13/2024 1:12 PM CDT 09/13/2024 1:20 PM CDT Peña Mata MD URINE ORDERABLES Final R esult [facility] CLIA # [id number] [address] [address] * BLOOD CULTURE (09/13/2024 12:55 PM CDT) BLOOD CULTURE No growth 09/18/2024 1:24 PM CDT [facility] Blood (Peripheral) Venipuncture / Unknown 09/13/2024 12:55 PM CDT 09/13/2024 1:00 PM CDT Peña Mata MD MICROBIOLOGY - GENERAL O RDERABLES Final Result [facility] CLIA # [id number] [address] [place] [address] [place] [address] * (ABNORMAL) LACTIC ACID (09/13/2024 12:55 PM CDT) Pathologist [facility] LACTIC ACID 2.2(H) <=2.0 mmol/L 09/13/2024 1:34 PM CDT [facility] Blood Venipuncture / Unknown 09/13/2024 12:55 PM CDT 09/13/2024 1:00 PM CDT Peña Mata MD CHEMISTRY ORDERABLES Fin al Result Performing Organization Address City/[facility]/ZIP Co de Phone Number [facility] CLIA # [id number] [address] [id number] * (ABNORMAL) POC GLUCOSE (09/13/2024 12:23 PM CDT) [facility] GLUCOSE POC 229(H) 74 - 99 mg/dL 09/13/2024 12:23 PM CDT [facility] SPECIMEN SOURCE, GLUCOSE POC Capillary 09/13/2024 12:23 PM CDT [facility] Blood, whole 09/13/2024 12:2 3 PM CDT 09/13/2024 2:10 PM CDT Peña Mata MD POINT OF CARE TESTING Fi nal Result Performing Organization Address [facility]/ZIP Co de Phone Number [facility] CLIA # [id number] [address] [id number] * (ABNORMAL) BLOOD GAS VENOUS (09/13/2024 11:47 AM CDT) [facility] PH BLOOD POC 7.31(L) 7.32 - 7.43 09/13/2024 11:47 AM CDT [facility] PCO2 POC 64(H) 38 - 50 mm Hg 09/13/2024 [facility] PO2 POC 66(H) 25 - 40 mm Hg 09/13/2024 11:47 AM [facility] HCO3 (CALC) POC 32(H) 22 - 29 mmol/L 09/13/2024 11:47 AM [facility] HEMOGLOBIN POC 10.7(L) 12.0 - 18.0 g/dL 09/13/2024 11:47 AM [facility] BASE EXCESS POC 6(H) -2 - 3 mmol/L 09/13/2024 11:47 AM [facility] O2 SATURATION POC 94(H) 40 - 70 % 09/13/2024 11:47 AM [facility] SODIUM POC 136 135 - 145 mmol/L 09/13/2024 11:47 AM [facility] POTASSIUM POC 4.3 3.5 - 4.9 mmol/L 09/13/2024 11:47 AM [facility] HEMATOCRIT POC 32(L) 38 - 51 % 09/13/2024 11:47 AM [facility] PH TEMP CORRECT 7.31(L) 7.32 - 7.43 09/13/2024 11:47 AM [facility] PCO2 TEMP CORRECT 64(H) 38 - 50 mm Hg 09/13/2024 11:47 AM [facility] PO2 TEMP CORRECT 66(H) 25 - 40 mm Hg 09/13/2024 11:47 AM [facility] SPECIMEN SOURCE, GASES POC Venous 09/13/2024 11:47 AM [facility] CALCIUM IONIZED POC 5.3(H) 4.8 - 5.2 mg/dL 09/13/2024 11:47 AM [facility] TCO2 (CALC) POC 34(H) 22 - 26 mmol/L 09/13/2024 11:47 AM [facility] PUNC SITE POC No Charge 09/13/2024 11:47 AM [facility] Blood, venous 09/13/2024 11: 47 AM CDT 09/13/2024 11:49 AM CDT Peña Mata MD ABG ORDERABLES Final Re sult Performing Organization Address [facility] Co de Phone Number [facility] CLIA # [id number] [address] [address] * PROTIME-INR (09/13/2024 9:16 AM CDT) [facility] PROTIME 13.8 12.7 - 14.9 Seconds 09/13/2024 9:40 AM CDT [facility] INR 1.0 0.8 - 1.2 09/13/2024 9:40 AM CDT [facility] Blood Venipuncture / Unknown 09/13/2024 9:16 AM CDT 09/13/2024 9:24 AM CDT Narrative [facility] - 09/13/2024 9:40 AM CDT Expected Values for INR: DVT/PE Goal INR 2.5; range 2.0 - 3.0 Valve Replacement Tissue Goal INR 2.5; range 2.0 - 3.0 Valve Replacement Mechanical Goal INR 3.0; range 2.5 - 3.5 POST-OK Goal INR 2.5; range 2.0 - 3.0 or Goal INR 3.0; range 2.5 - 3.5 Atrial Fibrillation Goal INR 2.5; range 2.0 - 3.0 Ischemic Stroke Goal INR 2.5; range 2.0 - 3.0 Peña Mata MD HEMATOLOGY ORDERABLES Fi nal Result Performing Organization Address City/[facility]/ZIP Co de Phone Number [facility] CLIA # [id number] [address] [phone] * (ABNORMAL) BLOOD GAS VENOUS (09/13/2024 9:16 AM CDT) [facility] PH BLOOD POC 7.28(L) 7.32 - 7.43 09/13/2024 9:16 AM [facility] PCO2 POC 65(H) 38 - 50 mm Hg 09/13/2024 9:16 AM [facility] PO2 POC 62(H) 25 - 40 mm Hg 09/13/2024 9:16 AM [facility] HCO3 (CALC) POC 31(H) 22 - 29 mmol/L 09/13/2024 9:16 AM [facility] HEMOGLOBIN POC 11.3(L) 12.0 - 18.0 g/dL 09/13/2024 9:16 AM [facility] BASE EXCESS POC 4(H) -2 - 3 mmol/L 09/13/2024 9:16 AM [facility] O2 SATURATION POC 91(H) 40 - 70 % 09/13/2024 9:16 AM [facility] SODIUM POC 137 135 - 145 mmol/L 09/13/2024 9:16 AM [facility] POTASSIUM POC 4.6 3.5 - 4.9 mmol/L 09/13/2024 9:16 AM [facility] HEMATOCRIT POC 34(L) 38 - 51 % 09/13/2024 9:16 AM [facility] PH TEMP CORRECT 7.28(L) 7.32 - 7.43 09/13/2024 9:16 AM [facility] PCO2 TEMP CORRECT 65(H) 38 - 50 mm Hg 09/13/2024 9:16 AM [facility] PO2 TEMP CORRECT 62(H) 25 - 40 mm Hg 09/13/2024 9:16 AM [facility] SPECIMEN SOURCE, GASES POC Venous 09/13/2024 9:16 AM [facility] CALCIUM IONIZED POC 5.2 4.8 - 5.2 mg/dL 09/13/2024 9:16 AM [facility] TCO2 (CALC) POC 33(H) 22 - 26 mmol/L 09/13/2024 9:16 AM CDT [facility] PUNC SITE POC No Charge 09/13/2024 9:16 AM CDT [facility] Blood, venous 09/13/2024 9:1 6 AM CDT 09/13/2024 9:19 AM CDT Peña Mata MD ABG ORDERABLES Final Re sult [facility] CLIA # [id number] [facility] [address] * (ABNORMAL) BASIC METABOLIC PANEL (09/13/2024 9:16 AM CDT) SODIUM 139 136 - 145 mmol/L 09/13/2024 9:59 AM T [facility] POTASSIUM 4.5 3.5 - 5.1 mmol/L 09/13/2024 9:59 AM T [facility] CHLORIDE 102 98 - 107 mmol/L 09/13/2024 9:59 AM T [facility] CO2 25 22 - 29 mmol/L 09/13/2024 9:59 AM T [facility] CALCIUM 9.4 8.6 - 10.0 mg/dL 09/13/2024 9:59 AM T [facility] BUN 20 6 - 20 mg/dL 09/13/2024 9:59 AM T [facility] CREATININE 0.52 0.51 - 0.95 mg/dL 09/13/2024 9:59 AM T [facility] GLUCOSE 257(H) 74 - 99 mg/dL 09/13/2024 9:59 AM T [facility] GFR >60 >=60 mL/min/1.7 3 sq meter 09/13/2024 9:59 AM T [facility] Comment:eGFR calculated with 2020 CKD-EPI equation. Vegetarian diet, extremely high or low muscle mass, and may affect results. Cystatin C with Glomerular Filtration Rate is a suitable alternative for these patients. ANION GAP 12 9 - 20 mmol/L 09/13/2024 9:59 AM T [facility] Blood Venipuncture / Unknown 09/13/2024 9:16 AM CDT 09/13/2024 9:25 AM CDT Nba Baig MD CHEMISTRY ORDERABLES Fi nal Result [facility] CLIA # [id number] [address] [place] [address] * (ABNORMAL) CBC WITH DIFFERENTIAL (09/13/2024 9:16 AM CDT) WBC 11.9(H) 4.8 - 10.8 K/uL 09/13/2024 9:40 AM T [facility] NRBCS 7(H) <1 % 09/13/2024 9:40 AM [facility] RBC 3.47(L) 4.20 - 5.40 M/uL 09/13/2024 9:40 AM T [facility] HEMOGLOBIN 10.9(L) 12.0 - 16.0 g/dL 09/13/2024 9:40 AM [facility] HEMATOCRIT 36.0 36.0 - 46.0 % 09/13/2024 9:40 AM T [facility] MCV 103.7(H) 84.0 - 103.0 fL 09/13/2024 9:40 AM T [facility] MCH 31.4 27.0 - 34.0 pg 09/13/2024 9:40 AM T [facility] MCHC 30.3 30.0 - 35.0 g/dL 09/13/2024 9:40 AM T [facility] PLATELETS 166 140 - 440 K/uL 09/13/2024 9:40 AM [facility] MPV 10.5 8.9 - 12.8 fL 09/13/2024 9:40 AM [facility] RDW 18.9(H) 11.0 - 14.5 % 09/13/2024 9:40 AM [facility] RDW-STDEV 72.3(H) 37.0 - 54.0 fL 09/13/2024 9:40 AM [facility] NEUTROPHILS 73 42 - 75 % 09/13/2024 9:40 AM [facility] LYMPHOCYTES 10(L) 24 - 44 % 09/13/2024 9:40 AM [facility] MONOCYTES 12(H) 2 - 10 % 09/13/2024 9:40 AM [facility] EOSINOPHILS 0 0 - 7 % 09/13/2024 9:40 AM [facility] BASOPHILS 1 0 - 1 % 09/13/2024 9:40 AM [facility] IMMATURE GRANULOCYTES 4(H) 0 - 2 % 09/13/2024 9:40 AM [facility] NEUTROPHIL ABSOLUTE 8.69(H) 2.00 - 8.00 K/uL 09/13/2024 9:40 AM [facility] LYMPHOCYTE ABSOLUTE 1.17(L) 1.20 - 4.00 K/uL 09/13/2024 9:40 AM [facility] MONOCYTE ABSOLUTE 1.40(H) 0.10 - 0.60 K/uL 09/13/2024 9:40 AM [facility] EOSINOPHIL ABSOLUTE 0.02 0.00 - 0.70 K/uL 09/13/2024 9:40 AM [facility] BASOPHILS ABSOLUTE 0.08 0.00 - 0.20 K/uL 09/13/2024 9:40 AM [facility] IMMATURE GRANULOCYTES ABSOLUTE 0.51(H) 0.00 - 0.10 K/uL 09/13/2024 9:40 AM [facility] SMEAR REVIEWED: NN - No Action Needed 09/13/2024 9:40 AM CDT [facility] Blood Venipuncture / Unknown 09/13/2024 9:16 AM CDT 09/13/2024 9:24 AM CDT Nba Baig MD HEMATOLOGY ORDERABLES F inal Result Performing Organization Address [facility] Co de Phone Number [facility] CLIA # [id number] [address] [address] [place] [address] * (ABNORMAL) TROPONIN 6 HR, 5TH GEN (09/13/2024 9:16 AM CDT) Pathologist [facility] TROPONIN T, 6 HR 5TH GEN 29(H) <11 ng/L 09/13/2024 9:55 AM CDT [facility] DELTA 6HR TROPONIN T 1 See Interp. 09/13/2024 9:55 AM CDT [facility] Blood Venipuncture / Unknown 09/13/2024 9:16 AM CDT 09/13/2024 9:24 AM CDT Narrative [facility] - 09/13/2024 9:55 AM CDT Troponin elevated. Delta indeterminate. Robbie Yen DO CHEMISTRY ORDERABLES F inal Result Performing Organization Address City/[facility] Co de Phone Number [facility] CLIA # [id number] [address] [address] * (ABNORMAL) POC GLUCOSE (09/13/2024 6:58 AM CDT) [facility] GLUCOSE POC 266(H) 74 - 99 mg/dL 09/13/2024 6:58 AM CDT [facility] SPECIMEN SOURCE, GLUCOSE POC Capillary 09/13/2024 6:58 AM CDT [facility] Blood, whole 09/13/2024 6:58 AM CDT 09/13/2024 7:16 AM CDT Nba Baig MD POINT OF CARE TESTING F inal Result Performing Organization Address [facility] Co de Phone Number [facility] [id number] [facility] [address] * RESPIRATORY PATHOGEN PCR PANEL (09/12/2024 11:02 PM CDT) [facility] Respiratory Pathogen PCR Panel NOT DETECTED No respiratory pathogen nucleic acids detected. 09/13/2024 12:31 AM CDT [facility] COVID-19 PCR NOT DETECTED Not Detected 09/13/2024 12:31 AM CDT [facility] Upper Respiratory ENTIRE NASOPHARYNX / Unknown Collection / Unknown 09/12/2024 11:02 PM CDT 09/12/2024 11:08 PM CDT Narrative [facility] - 09/13/2024 12:31 AM CDT [employer] [...] GENERAL ORDERABLES Final Result Performing Organization Address [facility]/ZIP Co de Phone Number [facility] [id number] [id number] [place] [address] * (ABNORMAL) TROPONIN 2 HR, 5TH GEN (09/12/2024 11:02 PM CDT) TROPONIN T, 2 HR 5TH GEN 27(H) <=10 ng/L 09/12/2024 11:41 PM CDT [facility] DELTA 2HR TROPONIN T -1 See Interp. 09/12/2024 11:41 PM CDT [facility] Blood Venipuncture / Unknown 09/12/2024 11:02 PM CDT 09/12/2024 11:10 PM CDT Narrative [facility] - 09/12/2024 11:41 PM CDT Troponin elevated. Delta not changing. Robbie Yen DO CHEMISTRY ORDERABLES F inal Result [facility] CLIA # [id number] [facility] [address] [place] [address] * XR CHEST PA OR AP 1 [...] CDT 09/12/2024 10:59 PM CDT External Provider [facility] HEMATOLOGY ORDERABLES Jana l Result Performing Organization Address [facility] Co de Phone Number [facility] [facility] CLIA # [id number] [address] [address] * (ABNORMAL) BRAIN NATRIURETIC PEPTIDE, BNP OR PROBNP (09/12/2024 9:32 PM CDT) PROBNP, N TERMINAL 623(H) 0 - 125 pg/mL 09/12/2024 10:22 PM CDT [facility] [facility] Comment: INTERPRETIVE COMMENT based on diagnosis: Diagnostic [...] ORDERABLES F inal Result Performing Organization Address [facility]/ZIP Co de Phone Number [facility] CLIA # [id number] [address] [address] [place] [address] * (ABNORMAL) TROPONIN BASELINE, 5TH GEN (09/12/2024 9:32 PM CDT) Pathologist [facility] TROPONIN T, BASELINE 5TH GEN 28(H) <=10 ng/L 09/12/2024 10:15 PM CDT [facility] Blood Venipuncture / Unknown 09/12/2024 9:32 PM CDT 09/12/2024 9:41 PM CDT Narrative [facility] - 09/12/2024 10:15 PM CDT Troponin elevated. us Robbie Yen DO CHEMISTRY ORDERABLES F inal Result [facility] CLIA # [id number] [address] [address] * (ABNORMAL) COMPREHENSIVE METABOLIC PANEL (09/12/2024 9:32 PM CDT) [facility] SODIUM 139 136 - 145 mmol/L 09/12/2024 11:12 PM CDT [facility] POTASSIUM 4.2 3.5 - 5.1 mmol/L 09/12/2024 11:12 PM CDT [facility] CHLORIDE 103 98 - 107 mmol/L 09/12/2024 11:12 PM CDT [facility] CO2 22 22 - 29 mmol/L 09/12/2024 11:12 PM CDT [facility] CALCIUM 9.4 8.6 - 10.0 mg/dL 09/12/2024 11:12 PM CDT [facility] BUN 24(H) 6 - 20 mg/dL 09/12/2024 11:12 PM CDT [facility] CREATININE 0.70 0.51 - 0.95 mg/dL 09/12/2024 11:12 PM [facility] GLUCOSE 275(H) 74 - 99 mg/dL 09/12/2024 11:12 PM [facility] TOTAL PROTEIN 6.0(L) 6.4 - 8.3 g/dL 09/12/2024 11:12 PM [facility] ALBUMIN 3.4(L) 3.5 - 5.2 g/dL 09/12/2024 11:12 PM [facility] BILIRUBIN TOTAL 0.2 0.0 - 1.0 mg/dL 09/12/2024 11:12 PM [facility] ALKALINE PHOSPHATASE 108(H) 35 - 104 U/L 09/12/2024 11:12 PM [facility] AST 28 10 - 35 U/L 09/12/2024 11:12 PM [facility] Comment: Hemolysis present. Result may be falsely elevated. Lipemia cleared by ultracentrifugation. ALT 49(H) <=35 U/L 09/12/2024 11:12 PM [facility] Comment:Lipemia cleared by u ltracentrifugation. GFR >60 >=60 mL/min/1.7 3 sq meter 09/12/2024 11:12 PM [facility] Comment:eGFR calculated with 2020 CKD-EPI equation. Vegetarian diet, extremely high or low muscle mass, and may affect results. Cystatin C with Glomerular Filtration Rate is a suitable alternative for these patients. ANION GAP 14 9 - 20 mmol/L 09/12/2024 11:12 PM [facility] Blood Venipuncture / Unknown 09/12/2024 9:32 PM CDT 09/12/2024 9:41 PM CDT us Robbie Yen DO CHEMISTRY ORDERABLES F inal Result [facility] CLIA # [id number] [address] [address] [place], [place] [address] * (ABNORMAL) CBC WITH DIFFERENTIAL (09/12/2024 9:32 PM CDT) [facility] WBC 8.0 4.8 - 10.8 K/uL 09/12/2024 9:55 PM CDT [facility] NRBCS 8(H) <1 % 09/12/2024 9:55 PM CDT [facility] RBC 3.35(L) 4.20 - 5.40 M/uL 09/12/2024 9:55 PM CDT [facility] HEMOGLOBIN 10.8(L) 12.0 - 16.0 g/dL 09/12/2024 9:55 PM [facility] HEMATOCRIT 33.9(L) 36.0 - 46.0 % 09/12/2024 9:55 [facility] M[facility] 101.2 84.0 - 103.0 fL 09/12/2024 9:55 PM CDT [facility] MCH 32.2 27.0 - 34.0 pg 09/12/2024 9:55 PM CDT [facility] MCHC 31.9 30.0 - 35.0 g/dL 09/12/2024 9:55 PM CDT [facility] PLATELETS 180 140 - 440 K/uL 09/12/2024 9:55 PM [facility] MPV 10.8 8.9 - 12.8 fL 09/12/2024 9:55 PM CDT [facility] RDW 19.2(H) 11.0 - 14.5 % 09/12/2024 9:55 PM [facility] RDW-STDEV 71.1(H) 37.0 - 54.0 fL 09/12/2024 9:55 PM CDT [facility] NEUTROPHILS 54 42 - 75 % 09/12/2024 9:55 PM CDT [facility] LYMPHOCYTES 28 24 - 44 % 09/12/2024 9:55 PM CDT [facility] MONOCYTES 12(H) 2 - 10 % 09/12/2024 9:55 PM CDT [facility] EOSINOPHILS 1 0 - 7 % 09/12/2024 9:55 PM CDT [facility] BASOPHILS 1 0 - 1 % 09/12/2024 9:55 PM CDT [facility] IMMATURE GRANULOCYTES 4(H) 0 - 2 % 09/12/2024 9:55 PM CDT [facility] NEUTROPHIL ABSOLUTE 4.35 2.00 - 8.00 K/uL 09/12/2024 9:55 PM CDT [facility] LYMPHOCYTE ABSOLUTE 2.24 1.20 - 4.00 K/uL 09/12/2024 9:55 PM CDT [facility] MONOCYTE ABSOLUTE 0.93(H) 0.10 - 0.60 K/uL 09/12/2024 9:55 PM CDT [facility] EOSINOPHIL ABSOLUTE 0.11 0.00 - 0.70 K/uL 09/12/2024 9:55 PM CDT [facility] BASOPHILS ABSOLUTE 0.05 0.00 - 0.20 K/uL 09/12/2024 9:55 PM CDT [facility] IMMATURE GRANULOCYTES ABSOLUTE 0.35(H) 0.00 - 0.10 K/uL 09/12/2024 9:55 PM CDT [facility] SMEAR REVIEWED: NA - Not Applicable 09/12/2024 9:55 PM CDT [facility] Blood Venipuncture / Unknown 09/12/2024 9:32 PM CDT 09/12/2024 9:41 PM CDT us Robbie Yen DO HEMATOLOGY ORDERABLES Final Result [facility] CLIA # [id number] [facility] [address] [address] [place] [address] * EKG 12-LEAD (09/12/2024 9:23 PM CDT) 09/12/2024 9:2 3 PM CDT Narrative INTERFACE SYSTEM - 09/13/2024 6:08 PM CDT [address] [address] Test Date: 2024-09-12 Pat Name: GIANFRANCO DIAZ Department: 11 Room: 18 18 Gender: Female Software Product Manager: [id number] : 1965 Requested By: Order Number: [id number] Reading : Kyler Helm Measurements Intervals [place] Rate: 95 P: 33 ME: 138 QRS: 48 QRSD: 80 T: -10 QT: 332 QTc: 417 Interpretive Statements Normal sinus rhythm Possible Left atrial enlargement Possible Inferior infarct, age undetermined Abnormal ECG Electronically Signed On 09-13-2024 18:08:49 CDT by Kyler Helm Procedure Note Kyler Helm MD - 09/13/[address] [address] Test Date: 2024-09-12 Pat Name: GIANFRANCO DAIZ Department: 11 Room: 18 18 Gender: Female Software Product Manager: [id number] : 1965 Requested By: Order Number: [id number] Reading : Kyler Helm Measurements Intervals [place] Rate: 95 P: 33 ME: 138 QRS: 48 QRSD: 80 T: -10 [...] this encounter Visit Diagnoses Diagnosis COPD exacerbation ([facility])- Primary Obstructive chronic bronchitis with exacerbation Bipolar affective disorder, currently depressed, moderate ([facility]) Bipolar I disorder, most recent episode (or current) depressed, moderate HEENA (generalized anxiety disorder) Generalized anxiety disorder Protein-calorie malnutrition, moderate Malnutrition of moderate degree H/O mastectomy, 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 ([facility]) Chronic combined systolic and diastolic heart failure COPD exacerbation ([facility]) Obstructive chronic bronchitis with exacerbation Opioid dependence with opioid-induced disorder ([facility]) Unspecified drug-induced mental disorder Closed fracture of first lumbar vertebra, unspecified fracture morphology, initial encounter ([facility]) Bipolar affective disorder ([facility]) Bipolar disorder, unspecified Former smoker Personal history of tobacco use, presenting hazards to health HEENA (generalized anxiety disorder) Generalized anxiety disorder GERD (gastroesophageal reflux disease) Esophageal reflux Closed compression fracture of body of L1 vertebra ([facility]) Chronic anticoagulation Encounter for long-term (current) use of anticoagulants Benign hypertension Essential hypertension, benign Insulin dependent type 2 diabetes mellitus ([facility]) Type II or unspecified type diabetes mellitus without mention of complication, not stated as uncontrolled Acute on chronic hypoxic respiratory failure ([facility]) Chronic hypoxic respiratory failure ([facility]) Chronic combined systolic and diastolic heart failure ([facility]) Chronic combined systolic and diastolic heart failure Acute respiratory failure with hypercapnia ([facility]) Acute respiratory failure RUQ pain Abdominal pain, [...] Larios RN) 08 (Given - Provider: Esdras Traore RN) 0817 [...] daily at bedtime. 0104 (Given - Provider: Taawnna Khan LPN)2223 (Given - Provider: Tawanna Khan [...] - Provider: Esdras Traore RN)2051 ([facility] - Provider: Tawanna Khan LPN)2256 (Given [...] documented as of this encounter Care Teams Flue Gas Analyst Relationship Specialty Start Date End Date Delta Wade MD [address] [address] PCP - General Family Practice 03/25/24 documented as of this encounter
--- OUTSIDE RECORDS SUMMARY | 2024-09-16 23:40 | XMS_ITS | Encounter Summary ---
Author Organization [facility] Address [address] [place] [address] Care Team Providers Care Credit Risk Modeler Name Role Phone Delta Wade MD Primary Care Provider Reason for Visit * Reason Comments Shortness of Breath C/o SOB denies fever . + home O2 3lpm. + leg swelling. Just released yesterday. Per brother pt will ask the same questions and is confused Encounter Details Date Type Department Care Team (Late st Contact Info) Description 09/16/2024 11:40 PM CDT - 09/16/2024 11:41 PM CDT Emergency [facility] Emergency Department [address] [place] [address] Discharge Disposition: Left without being [...] often do you attend chur ch or confucianism services? 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 1 Each 08/27/2023 TechLITE Pen Needle 29 gauge x 1/2 Needle USE directed with Victoza. 12/29/2022 naloxone (NARCAN) 4 mg/spray [place], Non-Aerosol EMERGENCY USE ONLY: Administer 1 spray (4 mg) in one nostril one time. May repeat in alternating nostrils every 2-3 min until responsive or EMS arrives. 2 Each 3 01/06/2023 blood sugar diagnostic StripIndications: Type 2 diabetes mellitus without complication, without long-term current use of insulin ([facility]) Use to test blood glucose up to QID PRN symptoms. 100 Each 11 12/17/2022 OneTouch Delica Plus Lancet 30 gauge USE TO test fasting blood glucose DAILY 11/04/2022 Blood-Glucose Meter KitIndications:Ty pe 2 diabetes mellitus without complication, without long-term current use of insulin ([facility]) Use to test blood glucose up to TID PRN symptoms. 1 Each 12/02/2022 documented as of this encounter ED Notes * Winsome Steward, RN - 09/16/2024 11:38 PM CDT LWBS after triage. Pt went to [facility] and called 911 and came back to let this nurse know she needed to be signed out so she could go to [facility]. Pt did refuse blood work because she [...] Visit [facility] Neurosurgery [address] [place] [address] Jerson Salas PA [address] [place] [address] 10/06/2024 4:00 PM CDT Office Visit [facility] Pulmonology [address] [place] [address] Cristian Metcalf FNP [address] [place] [address] documented as of this encounter [...] documented as of this encounter Care Teams Credit Risk Modeler Relationship Specialty Start Date End Date Delta Wade MD [address] [address] PCP - General Family Practice 03/25/24 documented as of this encounter
[2024-09-18 21:19] VITALS: BP 125/82; PULSE 110; RESP 17; TEMP 36.9; O2SAT 92; BMI 38.0
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
--- OUTSIDE RECORDS SUMMARY | 2024-09-18 21:58 | XMS_ITS ---
Author Organization [facility] Address [address] [place] [address] Phone Care Team Providers Care Software Engineer Intern Name Role Phone Delta Wade MD Primary Care Provider [phone] Active Problems Problem Noted Date Diagnosed Date [...] 06/14/2019 H/O vaginal surgery 06/14/2019 Atherosclerosis of [place] ronary artery of [place] heart without angina pectoris 06/14/2019 Urinary incontinence [...]
--- OUTSIDE RECORDS SUMMARY | 2024-09-18 21:58 | XMS_ITS | CCD ---
Author Name Interface, [id number] Address [facility] [place] [address] [facility] Address [address] [place] [id number] Care Team Providers Care Student Services Director Name Role Phone Anika VALLADARES, Allen Unavailable Unavailable Allergies and Adverse Reactions Reason for Visit Medications Problems Social History
--- OUTSIDE RECORDS SUMMARY | 2024-09-18 21:59 | XMS_ITS | Encounter Summary ---
Author Organization [facility] Address [address] [place] [address] Care Team Providers Care Imagery Intelligence Name Role Phone Delta Wade MD Primary Care Provider [phone] Encounter Details Date Type Department Care Team (Late st Contact Info) Description 06/16/2024 Telephone [facility] Ophthalmology [address] [place] [id number] Eduardo Craven MD [address] [place] [id number] Social History Tobacco Use Types Packs/Day [...] How often do you attend chur or methodist services? 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 Gender Identity Not on file Sexual Orientation [...] Description 09/22/2024 10:00 AM CDT Office Visit [facility] Neurosurgery [address] [place] [address] Jerson Salas, ANDERS [address] [place] [address] 10/06/2024 4:00 PM CDT Office Visit [facility] Pulmonology [address] [place] [address] Cristian Metcalf, RALEIGH [address] [place] [address] documented as of this encounter [...] documented as of this encounter Care Teams Imagery Intelligence Relationship Specialty Start Date End Date Delta Wade MD [address] [place] [place] [id number] PCP - General Family Practice 03/25/24 documented as of this encounter
--- OUTSIDE RECORDS SUMMARY | 2024-09-18 21:59 | XMS_ITS | Clinical Summary ---
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 1 Each 12/03/19 23 Active blood sugar diagnostic StripIndication s:Type 2 diabetes mellitus without complication, without long-term current use of insulin ([facility]) Use to test blood glucose up to QID PRN symptoms. 100 Each 11 12/18/19 Active TechLITE Pen Needle 29 gauge x 1/2 Needle USE directed with Victoza. 12/30/19 Active naloxone (NARCAN) 4 mg/spray [place], Non-Aerosol EMERGENCY USE ONLY: Administer 1 spray [...] 06/14/2019 H/O vaginal surgery 06/14/2019 Atherosclerosis of [place] co ronary artery of [place] heart without angina pectoris 06/14/2019 Urinary incontinence [...] CDT - 09/16/2024 11:41 PM CDT Emergency [facility] Emergency Department [address] [place] [phone] Discharge Disposition: Left without being seen 09/12/2024 9:13 PM CDT - 09/15/2024 12:26 PM CDT Hospital Encounter [facility] 4B Cardiac [address] [place] [address] Robbie Yen, DO Baig, MD Esperanza Soto, MD La Perez, Michael Mathew MD COPD exacerbation ([facility]/HCC) Discharge Disposition: Home or Self Care 09/10/2024 8:59 PM CDT - 09/11/2024 12:42 AM CDT Emergency [facility] Emergency Department [address] [place] [phone] Layton Barrow MD Chronic hypoxemic respiratory failure ([facility]) (Primary Dx); Type 2 diabetes mellitus with hyperglycemia, with long-term current use of insulin ([facility]); Pulmonary emphysema, unspecified emphysema type ([facility]) Discharge Disposition: Home or Self Care 09/10/2024 12:46 PM CDT - 09/10/2024 11:59 PM CDT Hospital Encounter [facility] [address] [place] [address] Don Causey DO Discharge Disposition: Home or Self Care 09/10/2024 11:40 AM CDT - 09/10/2024 11:59 PM CDT Hospital Encounter [facility] [place] [address] [place] [address] Don Causey, Discharge Disposition: Home or Self Care 09/09/2024 10:42 PM CDT - 09/09/2024 10:46 PM CDT Emergency [facility] Emergency Department [address] [place] [phone] Discharge Disposition: Left without being seen 09/09/2024 5:38 AM CDT - 09/09/2024 12:01 PM CDT Emergency [facility] Emergency Department [address] [place] [phone] Cassius Sanderson MD Acute on chronic congestive heart failure, unspecified heart failure type ([facility]) (Primary Dx) Discharge Disposition: Home or Self Care 09/09/2024 Travel 09/01/2024 Orders Only [facility] Neurosurgery [address] [place] [phone] Jerson Salas PA Closed fracture of first lumbar vertebra, unspecified fracture morphology, initial encounter ([facility]) (Primary Dx) 08/29/2024 7:55 PM CDT - 08/30/2024 2:43 PM CDT Emergency [facility] Emergency Department [address] [place] [phone] Danitza Wayne MD Mady, Mohamed Hamdy Ahmed Mohamed, MD COPD with exacerbation ([facility]) (Primary Dx) Discharge Disposition: Home or Self Care 08/23/2024 Telephone [facility] [address] [place] [phone] Veronika Yusuf RN Anticoagulation 08/22/2024 4:18 PM CDT - 08/26/2024 6:26 PM CDT Hospital Encounter [facility] 4A Cardiac [address] [place] [phone] Austin Robertson MD Abbas, MD Lacie Soto Abhaya, MD COPD exacerbation ([facility]) Discharge Disposition: Home or Self Care 08/22/2024 Travel 08/20/2024 9:19 PM CDT - 08/20/2024 9:22 PM CDT Emergency [facility] Emergency Department [address] [place] [phone] Discharge Disposition: Left without being seen 08/20/2024 Travel 08/18/2024 2:20 AM CDT - 08/18/2024 3:03 PM CDT Hospital Encounter [facility] 4B Cardiac [address] [place] [address] Danny Mclean MD Gibert, MD Safia Lagunas, MD La Soto, Michael Mathew MD Back pain Discharge Disposition: Home or Self Care 08/16/2024 Telephone [facility] [address] [place] [address] Veronika Yusuf, RN Anticoagulation 08/14/2024 6:00 PM CDT - 08/16/2024 1:22 PM CDT Hospital Encounter [facility] 4B Cardiac [address] [place] [address] Aki Booth, DO Baig, MD Rajesh Soto Lisa K, MD Kaur, MD Trini Closed compression fracture of body of L1 vertebra (CMS/HCC) Discharge Disposition: Home or Self Care 08/07/2024 8:18 PM CDT - 08/07/2024 8:45 PM CDT Emergency [facility] Emergency Department [address] [place] [address] Discharge Disposition: Left Against Medical Advice 08/05/2024 Telephone [facility] [address] [place] [address] Veronika Yusuf, RN Anticoagulation 08/04/2024 3:41 AM CDT - 08/06/2024 4:06 PM CDT Hospital Encounter [facility] 7B Medical Surgical [address] [place] [address] Danny Mclean MD Abbas, MD Alirio Soto, MD Regi Phelps, Kapil Johnson, Acute on chronic respiratory failure with hypoxia and hypercapnia (CMS/HCC) Discharge Disposition: Home or Self Care 08/04/2024 Results Follow-Up [facility] Emergency Department [address] [place] [phone] Ayana Roman, RN BLOOD CULTURE, BLOOD CULTURE 08/04/2024 Travel 08/02/2024 8:48 PM CDT - 08/03/2024 3:51 AM CDT Emergency [facility] Emergency Department [address] [place] [phone] Dung Bui MD Shortness of breath (Primary Dx); Bilateral arm pain Discharge Disposition: Home or Self Care 08/02/2024 Travel 07/29/2024 Telephone [facility] [address] [place] [phone] Veronika Yusuf, RN Anticoagulation 07/28/2024 3:26 PM CDT - 07/31/2024 11:57 AM CDT Hospital Encounter [facility] 6B Medical Surgical [address] [place] [address] Aki Briceno, Efraín Keys, Jennifer Tamez MD Pneumonia of left lower lobe due to infectious organism Discharge Disposition: Home or Self Care 07/28/2024 Travel 07/22/2024 Telephone [facility] [address] [place] [phone] Veronika Yusuf, RN Anticoagulation 07/21/2024 1:24 PM CDT - 07/25/2024 3:15 PM CDT Hospital Encounter [facility] 6B Medical Surgical [address] [place] [phone] Abel Singletary MD Abbas, Muhammad Khalid, MD Syed, Hejab, MD COPD exacerbation ([facility]) Discharge Disposition: Home or Self Care 07/20/2024 6:10 PM CDT Anesthesia Event [facility] Operating Room [address] [place] [phone] Aki Garcia MD 07/20/2024 5:10 PM CDT - 07/20/2024 6:14 PM CDT Surgery [facility] Operating Room [address] [place] [address] Tereso Gil, DPPio TOE(S) ARTHROPLASTY 07/20/2024 1:44 PM CDT - 07/20/2024 7:52 PM CDT Hospital Encounter [facility] 3J Pre-Op [address] [place] [address] Tereso Gil, DPM Hammertoe of left foot Discharge Disposition: Home or Self Care 07/19/2024 Telephone [facility] [place] [address] [place] [phone] Tereso Gil, DPM Information (PRE-OP INSTRUCTIONS AND ARRIVAL TIME) 07/19/2024 Telephone [facility] [place] [address] [place] [phone] Tereso Gil DPM Information (SX INFO INQUIRY) 07/18/2024 4:35 PM CDT - 07/19/2024 4:54 PM CDT Hospital Encounter [facility] 4A Cardiac [address] [place] [address] Danny Velasquez MD Sundaram, Vignesh, MD Mady, Mohamed Hamdy Ahmed Mohamed, MD Acute respiratory distress Discharge Disposition: Home or Self Care 07/18/2024 Telephone [facility] [place] [address] [address] Tereso Gil, DPM Information (RETURNING CALL TO PT) 07/14/2024 8:33 AM CDT - 07/16/2024 12:41 PM CDT Hospital Encounter [facility] 4C Medical [address] [place] [address] Abel Singletary MD Sohail, MD Margot Klein, Harinderjeet, MD Byron, Jorge S, MD Cellulitis of right lower extremity Discharge Disposition: Home or Self Care 07/14/2024 Telephone [facility] [place] [address] [place] [phone] Tereso Gil, DPM Information (NOTIFY PT OF SX DATE CHANGE) 07/14/2024 Telephone [facility] [place] [address] [place] [phone] Tereso Gil, DPM Information (RESCHED SX/ PRE-OP INSTRUCTIONS AND ARRIVAL TIME) 07/14/2024 Travel 07/13/2024 Telephone [facility] [place] [address] [place] [phone] Tereso Gil, DPM Information (TO RESCHED SX) 2024 12:27 PM CDT - 2024 11:59 PM CDT Hospital Encounter [facility] Imaging [facility] [address] [place] [address] Jose Cruz Sanchez MD Discharge Disposition: Home or Self Care 2024 11:57 AM CDT - 2024 11:59 PM CDT Hospital Encounter [facility] Pre Admission [facility] [address] 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 [place] [phone] Eduardo Craven MD 07/04/2024 [facility] [address] [facility] [address] [place] [address] Ashley Virgen, JOANNE Chest pain, unspecified type; Congestive heart failure, unspecified HF chronicity, unspecified heart failure type ([facility]/HCC) 07/02/2024 8:47 PM CDT - 07/06/2024 7:37 PM CDT Hospital Encounter [facility] 4A Cardiac [address] [place] [address] Danny Mclean MD Elgayesh, MD Byron Garcias Jagdeep S, MD Shah, Matilde Henry MD Bipolar affective disorder ([facility]/HCC) Discharge Disposition: Left Against Medical Advice 07/02/2024 Travel 07/01/2024 Telephone [facility] [address] [place] [address] Veronika Yusuf RN Anticoagulation 06/30/2024 7:21 PM CDT - 07/02/2024 12:38 PM CDT Hospital Encounter [facility] 4A Cardiac [address] [place] [address] Aki Booth, DO Blankenship, MD Byron Garcias Jagdeep S, MD Pneumonia of left lower lobe due to infectious organism Discharge Disposition: Home or Self Care 06/30/2024 Travel 06/28/2024 External Device Data STL ABSTRACTION Provider, Abstract 06/22/2024 Telephone [facility] Ophthalmology [address] [place] [address] Eduardo Craven MD Needs Appointment [...] PNEUM OCOCCAL CONJUGATE VACCINE 20-VALENT (PCV20), POLYSACCHARIDE [id number] CONJUGATE, ADJUVANT 0.5 ML (PF) IM 06/05/2023,12/02/2022,12/25/2021 [...] Never 06/13/2019 How often do you attend [facility] or yarsanism services? 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 Gender Identity Not on file Sexual Orientation [...] Visit [facility] Neurosurgery [address] [place] [address] Jerson Salas PA [address] [place] [address] 10/06/2024 4:00 PM CDT Office Visit [facility] Pulmonology [address] [place] [address] Cristian Metcalf, HUMAN SERVICES ASSISTANT [address] [place] [address] Health Maintenance Due Date Last [...] Anguiano LPN Medical Devices Implanted Type Area Material Distributor Device Identifier Shelf Expiration Date Model / Serial / Lot Dev Closure Angioseal 6fr Vip [id number] - [id number] Implanted:Qty: 1 on 03/21/2024 by Kyler Helm MD at [facility] Closure Device Right: Groin TERUM[employer]ARDIOVASC SYS [id number] 10/25/2024 [id number] / / [id number] 93 Imp Toe Phalinx 10 Solid Angl Sml [id number] - [id number] Implanted:Qty: 1 on 07/20/2024 by Tereso Gil DPM at [facility] Toe Left: Foot [employer] 12/29/2031 [id number] / / [id number] Procedures Procedure Name Priority Date/Time Associated Diagnosis [...] AIRWAY Routine 07/20/2024 6:2 0 PM CDT CA CORRECTION HAMMERTOE 07/20/2024 5:10 PM CDT Hammer [...] CDT LIPID PANEL Routine 02/19/2024 5:29 AM SOILS ENGINEER MICROALBUMIN/CREATINI NE RATIO, RANDOM UR Routine 02/26/2023 3:01 PM SOILS ENGINEER Type 2 diabetes mellitus without complication, without long-term current use of insulin ([facility]) Wellness examination CERV/VAG CYTO SCREEN PAP W/HPV [...] 2.2(H) <=2.0 mmol/L 09/15/2024 8:42 AM CDT [facility] Blood Venipuncture / Unknown 09/15/2024 8:00 AM CDT 09/15/2024 8:03 AM CDT Michael Tovar MD CHEMISTRY ORDERABLES Final Result [facility] CLIA # [id number] [address] [address] [place], [place] [id number] * PROTIME-INR (09/15/2024 8:00 AM CDT) Only the most recent of34 resultswithin the time period is included. PROTIME 13.8 12.7 - 14.9 Seconds 09/15/2024 8:42 AM CDT [facility] INR 1.0 0.8 - 1.2 09/15/2024 8:42 AM CDT [facility] Blood Venipuncture / Unknown 09/15/2024 8:00 AM CDT 09/15/2024 8:03 AM CDT [facility] - 09/15/2024 8:42 AM CDT Expected Values for INR: DVT/PE Goal INR 2.5; range 2.0 - 3.0 Valve Replacement Tissue Goal INR 2.5; range 2.0 - 3.0 Valve Replacement Mechanical Goal INR 3.0; range 2.5 - 3.5 POST-ME Goal INR 2.5; range 2.0 - 3.0 or Goal INR 3.0; range 2.5 - 3.5 Atrial Fibrillation Goal INR 2.5; range 2.0 - 3.0 Ischemic Stroke Goal INR 2.5; range 2.0 - 3.0 Michael Tovar MD HEMATOLOGY ORDERABLES Final Result [facility] CLIA # [id number] [address] [place] [id number] * (ABNORMAL) COMPREHENSIVE METABOLIC PANEL (09/15/2024 8:00 AM CDT) Only the most recent of23 resultswithin the time period is included. SODIUM 138 136 - 145 mmol/L 09/15/2024 10:22 AM CDT [facility] POTASSIUM 4.4 3.5 - 5.1 mmol/L 09/15/2024 10:22 AM CDT [facility] CHLORIDE 101 98 - 107 mmol/L 09/15/2024 10:22 AM CDT [facility] CO2 20(L) 22 - 29 mmol/L 09/15/2024 10:22 AM CDT [facility] CALCIUM 8.9 8.6 - 10.0 mg/dL 09/15/2024 10:22 AM T [facility] BUN 18 6 - 20 mg/dL 09/15/2024 10:22 AM [facility] CREATININE 0.51 0.51 - 0.95 mg/dL 09/15/2024 10:22 AM [facility] GLUCOSE 238(H) 74 - 99 mg/dL 09/15/2024 10:22 AM [facility] TOTAL PROTEIN 6.2(L) 6.4 - 8.3 g/dL 09/15/2024 10:22 AM [facility] ALBUMIN 3.4(L) 3.5 - 5.2 g/dL 09/15/2024 10:22 AM [facility] BILIRUBIN TOTAL 0.3 0.0 - 1.0 mg/dL 09/15/2024 10:22 AM [facility] ALKALINE PHOSPHATASE 102 35 - 104 U/L 09/15/2024 10:22 AM [facility] AST 17 10 - 35 U/L 09/15/2024 10:22 AM [facility] Comment:Hemolysis present. R esult may be falsely elevated. ALT 39(H) <=35 U/L 09/15/2024 10:22 AM [facility] GFR >60 >=60 mL/min/1.7 3 sq meter 09/15/2024 10:22 AM [facility] Comment:eGFR calculated with 2020 CKD-EPI equation. Vegetarian diet, extremely high or low muscle mass, and may affect results. Cystatin C with Glomerular Filtration Rate is a suitable alternative for these patients. ANION GAP 17 9 - 20 mmol/L 09/15/2024 10:22 AM [facility] Blood Venipuncture / Unknown 09/15/2024 8:00 AM CDT 09/15/2024 8:03 AM T us Michael Tovar MD CHEMISTRY ORDERABLES Final Result [facility] CLIA # [id number] [address] [place] [address] * (ABNORMAL) POC GLUCOSE (09/15/2024 7:26 AM CDT) Only the most recent of111 resultswithin the time period is included. [facility] GLUCOSE POC 202(H) 74 - 99 mg/dL 09/15/2024 7:26 AM CDT [facility] SPECIMEN SOURCE, GLUCOSE POC Capillary 09/15/2024 7:26 AM CDT [facility] Blood, whole 09/15/2024 7:26 AM CDT 09/15/2024 7:42 AM CDT Michael Tovar MD POINT OF CARE TESTING Final Result [facility] CLIA # [id number] [address] [place] [address] * (ABNORMAL) CBC WITH DIFFERENTIAL (09/14/2024 12:08 PM CDT) Only the most recent of32 resultswithin the time period is included. [facility] WBC 10.9(H) 4.8 - 10.8 K/uL 09/14/2024 12:24 PM CDT [facility] NRBCS 5(H) <1 % 09/14/2024 12:24 PM CDT [facility] RBC 3.47(L) 4.20 - 5.40 M/uL 09/14/2024 12:24 PM CDT [facility] HEMOGLOBIN 10.8(L) 12.0 - 16.0 g/dL 09/14/2024 12:24 PM CDT [facility] HEMATOCRIT 35.2(L) 36.0 - 46.0 % 09/14/2024 12:24 PM CDT [facility] MCV 101.4 84.0 - 103.0 fL 09/14/2024 12:24 PM [facility] MCH 31.1 27.0 - 34.0 pg 09/14/2024 12:24 PM [facility] MCHC 30.7 30.0 - 35.0 g/dL 09/14/2024 12:24 PM [facility] PLATELETS 172 140 - 440 K/uL 09/14/2024 12:24 PM [facility] MPV 11.2 8.9 - 12.8 fL 09/14/2024 12:24 PM [facility] RDW 18.9(H) 11.0 - 14.5 % 09/14/2024 12:24 PM [facility] RDW-STDEV 69.1(H) 37.0 - 54.0 fL 09/14/2024 12:24 PM [facility] NEUTROPHILS 88(H) 42 - 75 % 09/14/2024 12:24 PM [facility] LYMPHOCYTES 7(L) 24 - 44 % 09/14/2024 12:24 PM [facility] MONOCYTES 4 2 - 10 % 09/14/2024 12:24 PM [facility] EOSINOPHILS 0 0 - 7 % 09/14/2024 12:24 PM [facility] BASOPHILS 0 0 - 1 % 09/14/2024 12:24 PM [facility] IMMATURE GRANULOCYTES 2 0 - 2 % 09/14/2024 12:24 PM [facility] NEUTROPHIL ABSOLUTE 9.62(H) 2.00 - 8.00 K/uL 09/14/2024 12:24 PM [facility] LYMPHOCYTE ABSOLUTE 0.71(L) 1.20 - 4.00 K/uL 09/14/2024 12:24 PM [facility] MONOCYTE ABSOLUTE 0.38 0.10 - 0.60 K/uL 09/14/2024 12:24 PM [facility] EOSINOPHIL ABSOLUTE 0.02 0.00 - 0.70 K/uL 09/14/2024 12:24 PM CDT [facility] BASOPHILS ABSOLUTE 0.02 0.00 - 0.20 K/uL 09/14/2024 12:24 PM CDT [facility] IMMATURE GRANULOCYTES ABSOLUTE 0.19(H) 0.00 - 0.10 K/uL 09/14/2024 12:24 PM T [facility] SMEAR REVIEWED: NN - No Action Needed 09/14/2024 12:24 PM [facility] Blood Venipuncture / Unknown 09/14/2024 12:08 PM CDT 09/14/2024 12:13 PM CDT Michael Tovar MD HEMATOLOGY ORDERABLES Final Result [facility] CLIA # [id number] [address] [place] [address] * (ABNORMAL) BLOOD GAS ARTERIAL (09/13/2024 8:22 PM CDT) Only the most recent of5 resultswithin the time period is included. PH BLOOD POC 7.40 7.35 - 7.45 09/13/2024 8:22 PM [facility] PCO2 POC 54(H) 35 - 45 mm Hg 09/13/2024 8:22 PM [facility] PO2 POC 44(L) 80 - 105 mm Hg 09/13/2024 8:22 PM [facility] HCO3 (CALC) POC 33(H) 22 - 26 mmol/L 09/13/2024 8:22 PM [facility] HEMOGLOBIN POC 10.8(L) 12.0 - 18.0 g/dL 09/13/2024 8:22 PM [facility] BASE EXCESS POC 9(H) -2 - 3 mmol/L 09/13/2024 8:22 PM [facility] O2 SATURATION POC 78(L) 95 - 98 % 09/13/2024 8:22 PM [facility] SODIUM POC 136(L) 138 - 146 mmol/L 09/13/2024 8:22 PM [facility] POTASSIUM POC 4.2 3.5 - 4.9 mmol/L 09/13/2024 8:22 PM [facility] HEMATOCRIT POC 32(L) 38 - 51 % 09/13/2024 8:22 PM [facility] PH TEMP CORRECT 7.40 7.35 - 7.45 09/13/2024 8:22 PM [facility] PCO2 TEMP CORRECT 54(H) 35 - 45 mm Hg 09/13/2024 8:22 PM [facility] PO2 TEMP CORRECT 44(L) 80 - 105 mm Hg 09/13/2024 8:22 PM [facility] SPECIMEN SOURCE, GASES POC Arterial 09/13/2024 8:22 PM [facility] CALCIUM IONIZED POC 5.1 4.8 - 5.2 mg/dL 09/13/2024 8:22 PM [facility] TCO2 (CALC) POC 35(H) 23 - 27 mmol/L 09/13/2024 8:22 PM [facility] LITER FLOW 3.0 L/min 09/13/2024 8:22 PM [facility] PUNC SITE POC ART PUNCT 09/13/2024 8:22 PM [facility] SOURCE OF OXYGEN POC Cannula 09/13/2024 8:22 PM [facility] Blood, arterial 09/13/2024 8 :22 PM CDT 09/13/2024 8:24 PM T Peña Mata MD ABG ORDERABLES Final Re sult [facility] CLIA # [id number] [facility] [address] [address] [place] [address] * XR THORACOLUMBAR SPINE 2 VW (09/13/2024 [...] 3.2(H) <=2.0 mmol/L 09/13/2024 2:52 PM CDT [facility] SPECIMEN SOURCE, GASES POC Arterial 09/13/2024 2:52 PM CDT [facility] SITE POC ART PUNCT 09/13/2024 2:52 PM CDT [facility] Blood 09/13/2024 2:52 PM CDT 09/13/2024 2:55 PM CDT Narrative [facility] - 09/13/2024 2:52 PM CDT References ranges displayed are for Arterial samples. Peña Mata MD POINT OF CARE TESTING Fi nal Result Performing Organization Address City/[facility]/ZIP Co de Phone Number [facility] CLIA # [id number] [address] [facility] [place] [address] * BLOOD CULTURE (09/13/2024 2:15 PM CDT) Only the most recent of14 resultswithin the time period is included. BLOOD CULTURE No growth 09/18/2024 3:31 PM CDT [facility] Blood (Peripheral) Venipuncture / Unknown 09/13/2024 2:15 PM CDT 09/13/2024 2:38 PM CDT Peña Mata MD MICROBIOLOGY - GENERAL O RDERABLES Final Result Performing Organization Address [facility] Co de Phone Number [facility] CLIA # [id number] [address] [address] [place] [address] * US ABDOMEN LIMITED (09/13/2024 1:27 PM [...] Mata MD URINE ORDERABLES Final R esult [facility] CLIA # [id number] [address] [place] [id number] * (ABNORMAL) URINALYSIS WITH REFLEX MICROSCOPIC (09/13/2024 1:12 PM CDT) Only the most recent of6 resultswithin the time period is included. COLOR UA Colorless(A ) Pale to Dark Yellow 09/13/2024 1:29 PM T [facility] CLARITY UA Clear Clear 09/13/2024 1:29 PM T [facility] HOSPITAL SPECIFIC GRAVITY UA 1.012 1.003 - 1.035 09/13/2024 1:29 PM T [facility] PH UA 5.5 5.0 - 8.0 09/13/2024 1:29 PM T [facility] LEUKOCYTE ESTERASE UA 2+(A) Negative 09/13/2024 1:29 PM T [facility] NITRITE UA Negative Negative 09/13/2024 1:29 PM T [facility] PROTEIN UA Negative Negative 09/13/2024 1:29 PM T [facility] GLUCOSE UA 2+(A) Negative 09/13/2024 1:29 PM T [facility] KETONES UA Negative Negative 09/13/2024 1:29 PM T [facility] UROBILINOGEN UA <2.0 <2.0 mg/dL 1:29 PM T [facility] BILIRUBIN UA Negative Negative 09/13/2024 1:29 PM T [facility] BLOOD UA Negative Negative 09/13/2024 1:29 PM CDT [facility] WBC UA 0-2 0 - 2 /hpf 09/13/2024 1:29 PM CDT [facility] RBC UA 0-2 0 - 2 /hpf 09/13/2024 1:29 PM CDT [facility] BACTERIA UA 2+(A) Negative /hpf 09/13/2024 1:29 PM CDT [facility] EPITHELIAL CELLS, URINE 0-5 0 - 5 /hpf 09/13/2024 1:29 PM CDT [facility] HYALINE CAST 0-2 None Seen, 0-2 /lpf 09/13/2024 1:29 PM CDT [facility] Urine URINE SPECIMEN OBTAINED BY CLEAN CATCH PROCEDURE / Unknown Collection / Unknown 09/13/2024 1:12 PM CDT 09/13/2024 1:20 PM CDT Peña Mata MD URINE ORDERABLES Final R esult Performing Organization Address City/[facility]/ZIP Co de Phone Number [facility] CLIA # [id number] [address] [address] [place] [address] * URINE CULTURE (09/13/2024 1:12 PM CDT) CULTURE Polymicrobial growth consistent with normal urethral kota and/or colonizing bacteria 09/14/2024 11:22 AM CDT [facility] Urine URINE SPECIMEN OBTAINED BY CLEAN CATCH PROCEDURE / Unknown Collection / Unknown 09/13/2024 1:12 PM CDT 09/13/2024 1:20 PM CDT Peña Mata MD MICROBIOLOGY - GENERAL O RDERABLES Final Result Performing Organization Address City/[facility]/ZIP Co de Phone Number [facility] CLIA # [id number] [address] [place] [address] * (ABNORMAL) BLOOD GAS VENOUS (09/13/2024 11:47 AM [facility]) Only the most recent of6 resultswithin the time period is included. [facility] PH BLOOD POC 7.31(L) 7.32 - 7.43 09/13/2024 11:47 AM [facility] PCO2 POC 64(H) 38 - 50 mm Hg 09/13/2024 11:47 AM [facility] PO2 POC 66(H) 25 - 40 mm Hg 09/13/2024 11:47 AM [facility] HCO3 (CALC) POC 32(H) 22 - 29 mmol/L 09/13/2024 11:47 AM [facility] HEMOGLOBIN POC 10.7(L) 12.0 - 18.0 g/dL 09/13/2024 11:47 AM [facility] BASE EXCESS POC 6(H) -2 - 3 mmol/L 09/13/2024 11:47 AM [facility] O2 SATURATION POC 94(H) 40 - 70 % 09/13/2024 11:47 AM [facility] SODIUM POC 136 135 - 145 mmol/L 09/13/2024 11:47 AM [facility] POTASSIUM POC 4.3 3.5 - 4.9 mmol/L 09/13/2024 11:47 AM [facility] HEMATOCRIT POC 32(L) 38 - 51 % 09/13/2024 11:47 AM [facility] PH TEMP CORRECT 7.31(L) 7.32 - 7.43 09/13/2024 11:47 AM [facility] PCO2 TEMP CORRECT 64(H) 38 - 50 mm Hg 09/13/2024 11:47 AM [facility] PO2 TEMP CORRECT 66(H) 25 - 40 mm Hg 09/13/2024 11:47 AM [facility] SPECIMEN SOURCE, GASES POC Venous 09/13/2024 11:47 AM [facility] CALCIUM IONIZED POC 5.3(H) 4.8 - 5.2 mg/dL 09/13/2024 11:47 AM CDT [facility] TCO2 (CALC) POC 34(H) 22 - 26 mmol/L 09/13/2024 11:47 AM CDT [facility] PUNC SITE POC No Charge 09/13/2024 11:47 AM CDT [facility] Blood, venous 09/13/2024 11: 47 AM CDT 09/13/2024 11:49 AM CDT Peña Mata MD ABG ORDERABLES Final Re sult Performing Organization Address [facility]/ZIP Co de Phone Number [facility] CLIA # [id number] [address] [address] [place], [place] [id number] * (ABNORMAL) TROPONIN 6 HR, 5TH GEN (09/13/2024 9:16 AM CDT) Only the most recent of10 resultswithin the time period is included. TROPONIN T, 6 HR 5TH GEN 29(H) <11 ng/L 09/13/2024 9:55 AM CDT [facility] DELTA 6HR TROPONIN T 1 See Interp. 09/13/2024 9:55 AM CDT [facility] Blood Venipuncture / Unknown 09/13/2024 9:16 AM CDT 09/13/2024 9:24 AM CDT Narrative [facility] LABORATORY [facility] - 09/13/2024 9:55 AM CDT Troponin elevated. Delta indeterminate. us Robbie Yen DO CHEMISTRY ORDERABLES F inal Result Performing Organization Address [facility]/ZIP Co de Phone Number [facility] CLIA # [id number] [address] [address] [place], [place] [id number] * (ABNORMAL) BASIC METABOLIC PANEL (09/13/2024 9:16 AM CDT) Only the most recent of16 resultswithin the time period is included. SODIUM 139 136 - 145 mmol/L 09/13/2024 9:59 AM CDT [facility] POTASSIUM 4.5 3.5 - 5.1 mmol/L 09/13/2024 9:59 AM T [facility] CHLORIDE 102 98 - 107 mmol/L 09/13/2024 9:59 AM T [facility] CO2 25 22 - 29 mmol/L 09/13/2024 9:59 AM T [facility] CALCIUM 9.4 8.6 - 10.0 mg/dL 09/13/2024 9:59 AM T [facility] BUN 20 6 - 20 mg/dL 09/13/2024 9:59 AM T [facility] CREATININE 0.52 0.51 - 0.95 mg/dL 09/13/2024 9:59 AM T [facility] GLUCOSE 257(H) 74 - 99 mg/dL 09/13/2024 9:59 AM [facility] GFR >60 >=60 mL/min/1.7 3 sq meter 09/13/2024 9:59 AM T [facility] Comment:eGFR calculated with 2020 CKD-EPI equation. Vegetarian diet, extremely high or low muscle mass, and may affect results. Cystatin C with Glomerular Filtration Rate is a suitable alternative for these patients. ANION GAP 12 9 - 20 mmol/L 09/13/2024 9:59 AM T [facility] Blood Venipuncture / Unknown 09/13/2024 9:16 AM CDT 09/13/2024 9:25 AM CDT us Nba Baig MD CHEMISTRY ORDERABLES Fi nal Result [facility] CLIA # [id number] [facility] [address] [place] [address] * (ABNORMAL) TROPONIN 2 HR, 5TH GEN (09/12/2024 11:02 PM CDT) Only the most recent of14 resultswithin the time period is included. [facility] TROPONIN T, 2 HR 5TH GEN 27(H) <=10 ng/L 09/12/2024 11:41 PM CDT [facility] DELTA 2HR TROPONIN T -1 See Interp. 09/12/2024 11:41 PM CDT [facility] Blood Venipuncture / Unknown 09/12/2024 11:02 PM CDT 09/12/2024 11:10 PM CDT [facility] - 09/12/2024 11:41 PM CDT Troponin elevated. Delta not changing. us Robbie Yen DO CHEMISTRY ORDERABLES F inal Result [facility] CLIA # [id number] [address] [address] [place] [address] * RESPIRATORY PATHOGEN PCR PANEL (09/12/2024 11:02 PM CDT) Only the most recent of7 resultswithin the time period is included. [facility] Respiratory Pathogen PCR Panel NOT DETECTED No respiratory pathogen nucleic acids detected. 09/13/2024 12:31 AM CDT [facility] COVID-19 PCR NOT DETECTED Not Detected 09/13/2024 12:31 AM CDT [facility] Upper Respiratory ENTIRE NASOPHARYNX / Unknown Collection / Unknown 09/12/2024 11:02 PM CDT 09/12/2024 11:08 PM CDT [facility] - 09/13/2024 12:31 AM CDT [...] DO MICROBIOLOGY - GENERAL ORDERABLES Final Result [facility] LABORATORY SERVICES [facility] # [id number] [address] [address] * XR CHEST PA OR AP 1 [...] CDT 09/12/2024 10:59 PM CDT External Provider [facility] HEMATOLOGY ORDERABLES Jana l Result Performing Organization Address [facility] de Phone Number [facility] [employer] [facility] CLIA # [id number] [address] [place] [address] * (ABNORMAL) TROPONIN BASELINE, 5TH GEN (09/12/2024 9:32 PM CDT) Only the most recent of14 resultswithin the time period is included. Pathologist [facility] TROPONIN T, BASELINE 5TH GEN 28(H) <=10 ng/L 09/12/2024 10:15 PM CDT [facility] Blood Venipuncture / Unknown 09/12/2024 9:32 PM CDT 09/12/2024 9:41 PM CDT Narrative [facility] - 09/12/2024 10:15 PM CDT Troponin elevated. Robbie Yen DO CHEMISTRY ORDERABLES F inal Result Performing Organization Address [facility] de Phone Number [facility] [employer] [facility] CLIA # [id number] [address] [place], [place] [address] * (ABNORMAL) BRAIN NATRIURETIC PEPTIDE, BNP OR PROBNP (09/12/2024 9:32 PM CDT) Only the most recent of12 resultswithin the time period is included. PROBNP, N TERMINAL 623(H) 0 - 125 pg/mL 09/12/2024 10:22 PM CDT [facility] [employer] [facility] Comment: INTERPRETIVE COMMENT based on [...] Yen DO CHEMISTRY ORDERABLES F inal Result [facility]ATORY SERVICES [facility] # [id number] [address] [address] * EKG 12-LEAD (09/12/2024 9:23 PM CDT) Only the most recent of23 resultswithin the time period is included. 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: [id number] : 1965 Requested By: Order Number: [id number] Jessica MD: Kyler Helm Measurements Intervals [place] Rate: 95 P: 33 CA: 138 QRS: 48 QRSD: 80 T: -10 QT: 332 QTc: 417 Interpretive Statements Normal sinus rhythm Possible Left atrial enlargement Possible Inferior infarct, age undetermined Abnormal ECG Electronically Signed On 09-13-2024 18:08:49 CDT by Kyler Helm Procedure Note Kyler Helm MD - 09/13/[id number] [place] [address] Test Date: 2024-09-12 Pat Name: LE DIAZ Department: 11 Room: 18 18 Gender: Female 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: [id number] : 1965 Requested By: Order Number: [id number] Reading MD: Kyler Helm Measurements Intervals [place] Rate: 95 P: 33 CA: 138 QRS: 48 QRSD: 80 T: -10 QT: 332 QTc: 417 Interpretive Statements Normal sinus rhythm Possible Left atrial enlargement Possible Inferior infarct, age undetermined Abnormal ECG Electronically Signed On 09-13-2024 18:08:49 CDT by Kyler Helm us Robbie Yen DO ECG ORDERABLES Final Result Performing Organization Address City/State/[facility] Co de Phone Number INTERFACE SYSTEM [...] 36 - 66 % 09/10/2024 10:01 PM [facility] LYMPHOCYTES RELATIVE 10(L) 24 - 44 % 09/10/2024 10:01 PM [facility] MONOCYTES RELATIVE 2(L) 4 - 10 % 2024 10:01 PM [facility] METAMYELOCYTES RELATIVE 1 0 - 1 % 09/10/2024 10:01 PM [facility] MYELOCYTES - REL (DIFF) 2(H) 0 - 1 % 09/10/2024 10:01 PM [facility] PLATELET EST. Adequate 09/10/2024 10:01 PM [facility] NEUTROPHILS ABSOLUTE COUNT 6.21 2.00 - 8.00 K/uL 09/10/2024 10:01 PM [facility] LYMPHOCYTES ABSOLUTE 0.73(L) 1.20 - 4.00 K/uL 09/10/2024 10:01 PM [facility] ATYPICAL LYMPHS ABSOLUTE 09/10/2024 10:01 PM [facility] MONOCYTES ABSOLUTE 0.15 0.10 - 0.60 K/uL 09/10/2024 10:01 PM [facility] ANISOCYTOSIS 1+ /hpf 09/10/2024 10:01 PM [facility] COTTON-JOLLY BODIES Present /hpf 09/10/2024 10:01 PM [facility] TOTAL CELLS COUNTED IN DIFF 100 09/10/2024 10:01 PM [facility] Blood Venipuncture / Unknown 09/10/2024 9:30 PM CDT 09/10/2024 9:33 PM CDT Layton Barrow MD HEMATOLOGY ORDERABLES COM Final Result [facility] CLIA # [id number] [address] [place] [address] [place] [address] * D-DIMER (09/10/2024 9:30 PM CDT) Only the most recent of2 resultswithin the time period is included. D-DIMER QUANT <0.27 0.00 - 0.50 ug/mL FEU 09/10/2024 10:03 PM CDT [facility] Blood Venipuncture / Unknown 09/10/2024 9:30 PM CDT 09/10/2024 9:33 PM CDT Narrative [facility] - 09/10/2024 10:03 PM CDT D-Dimer [...] MD HEMATOLOGY ORDERABLES Final Res ult [facility] CLIA # [id number] [address] [place] [address] * XR CHEST PA AND LATERAL 2 [...] 0.12(H) <=0.08 ng/mL 08/30/2024 6:32 AM CDT [facility] [employer] [facility] Blood Venipuncture / Unknown 08/30/2024 5:27 AM CDT 08/30/2024 5:41 AM CDT Narrative [facility] [employer] [facility] - 08/30/2024 6:32 AM CDT The utility [...] Ferrara MD CHEMISTRY ORDERABLES Final Resul t [facility] CLIA # [id number] [address] [place] [address] * INFLUENZA A/B, RSV AND COVID-19 PCR PANEL (08/30/2024 2:52 AM CDT) Only the most recent of4 resultswithin the time period is included. COVID-19 PCR NOT DETECTED Not Detected 08/31/19 3:49 AM [facility] Influenza A by PCR NOT DETECTED Not Detected 08/30/2024 3:49 AM T [facility] Influenza B by PCR NOT DETECTED Not Detected 08/30/2024 3:49 AM T [facility] RSV by PCR NOT DETECTED Not Detected 08/30/2024 3:49 AM [facility] Upper Respiratory ENTIRE NASOPHARYNX / Unknown Collection / Unknown 08/30/2024 2:52 AM CDT 08/30/2024 2:55 AM CDT [facility] - 08/30/2024 3:49 AM CDT [...] ERAL ORDERABLES Final Result [facility] CLIA # [id number] [address] [place] [address] * CT ABDOMEN PELVIS W CONTRAST (08/29/2024 [...] - 60 U/L 08/29/2024 8:54 PM CDT [facility] Blood Venipuncture / Unknown 08/29/2024 8:09 PM CDT 08/29/2024 8:18 PM CDT Danitza Wayne MD CHEMISTRY ORDERABL ES Final Result Performing Organization Address [facility] Co de Phone Number [facility] CLIA # [id number] [address] [place] [address] * PTT (08/22/2024 4:32 PM CDT) Only the most recent of3 resultswithin the time period is included. PTT 25.0 24.8 - 37.2 seconds 08/22/2024 4:57 PM CDT [facility] Blood Venipuncture / Unknown 08/22/2024 4:32 PM CDT 08/22/2024 4:38 PM CDT Narrative [facility] LABORATORY [facility] - 08/22/2024 4:57 PM CDT Therapeutic Range: Hi-level PE/DVT heparin protocol 80.1 - 95.0 sec Lo-level PE/DVT heparin protocol 70.1 - 85.0 sec Cardiac Heparin Protocol 70.1 - 100.0 sec Austin Robertson MD HEMATOLOGY ORDERAB LES Final Result Performing Organization Address [facility] Co de Phone Number [facility] CLIA # [id number] [address] [place] [address] * CT CHEST WO CONTRAST (08/18/2024 11:42 [...] - 2.6 mg/dL 08/18/2024 8:21 AM CDT [facility] Blood Venipuncture / Unknown 08/18/2024 6:01 AM CDT 08/18/2024 6:40 AM CDT Nba Baig MD CHEMISTRY ORDERABLES Fi nal Result Performing Organization Address [facility] de Phone Number [facility] CLIA # [id number] [facility] [id number] * VITAMIN B12 AND FOLATE (08/16/2024 4:59 AM CDT) Only the most recent of2 resultswithin the time period is included. VITAMIN B12 374 211 - 946 pg/mL 08/16/2024 6:23 AM CDT [facility] FOLATE, SERUM 14.5 3.1 - 17.5 ng/mL 08/16/2024 6:23 AM CDT [facility] Blood Venipuncture / Unknown 08/16/2024 4:59 AM CDT 08/16/2024 5:05 AM CDT Nayely Mena MD CHEMISTRY ORDERABLES Final Resul t Performing Organization Address [facility] Phone Number [facility] CLIA # [id number] [address] [place] [address] * CT HUMERUS WO CONTRAST LEFT (08/15/2024 [...] - 4.20 uIU/mL 08/14/2024 8:09 PM CDT [facility] [employer] [facility] Blood Venipuncture / Unknown 08/14/2024 7:05 PM CDT 08/14/2024 7:14 PM CDT Aki Booth DO CHEMISTRY ORDERABLES Fi nal Result [facility] CLIA # [id number] [address] [address] [place] [address] * XR HUMERUS 2+ VW LEFT (08/14/2024 [...] present. Aki Booth DO DIAGNOSTIC IMAGING [facility] Final Result * (ABNORMAL) DRUG SCREEN, URINE (08/04/2024 11:44 AM CDT) Only the most recent of2 resultswithin the time period is included. Pathologist [facility] AMPHETAMINE QUAL, URINE Negative Negative 08/04/2024 12:30 PM CDT [facility] BARBITURATE QUAL, URINE Negative Negative 08/04/2024 12:30 PM CDT [facility] BENZODIAZEPINE QUAL, URINE Negative Negative 08/04/2024 12:30 PM CDT [facility] COCAINE QUAL URINE Negative Negative 08/04/2024 12:30 PM CDT [facility] OPIATE QUAL, URINE Negative Negative 08/04/2024 12:30 PM T [facility] CANNABINOIDS QUAL, URINE Negative Negative 08/04/2024 12:30 PM CDT [facility] OXYCODONE QUAL, URINE Presumptive Positive(A) Negative 08/04/2024 12:30 PM CDT [facility] METHADONE QUAL, URINE Negative Negative 08/04/2024 12:30 PM CDT [facility] FENTANYL QUAL, URINE Negative Negative 08/04/2024 12:30 PM CDT [facility] CREATININE, URINE 11.9(L) 29.0 - 226.0 mg/dL 08/04/2024 12:30 PM T [facility] Comment:Reference Range vari es with fluid intake and diet. Urine URINE SPECIMEN OBTAINED BY CLEAN CATCH PROCEDURE / Unknown Collection / Unknown 08/04/2024 11:44 AM CDT 08/04/2024 11:51 AM CDT Narrative [facility] - 08/04/2024 12:30 PM CDT When [...] Danny Mclean MD URINE ORDERABLES Final Result [facility] CLIA # [id number] [address] [place] [address] [place] [address] * UNFRACTIONATED HEPARIN MONITORING (08/04/2024 9:09 AM CDT) ANTI-XA UNFRAC HEP <0.10 See Interpretation IU/mL 08/04/2024 9:37 AM [facility] Blood Venipuncture / Unknown 08/04/2024 9:09 AM CDT 08/04/2024 9:17 AM T [facility] - 08/04/2024 9:37 AM CDT Therapeutic Range: PT/DVT Heparin Protocol 0.3 - 0.7 IU/ml Cardiac Heparin Protocol 0.3 - 0.6 IU/ml The reference range for this test is specific to the anticoagulant and is not appropriate for monitoring patients on a DOAC protocol. us Lenin Amezquita MD HEMATOLOGY ORDERABLES Final Resu lt [facility] CLIA # [id number] [facility] [address] * (ABNORMAL) CBC WITHOUT DIFFERENTIAL (08/04/2024 9:09 AM CDT) Only the most recent of4 resultswithin the time period is included. [facility] WBC 9.5 4.8 - 10.8 K/uL 08/04/2024 9:24 AM [facility] NRBCS 1(H) <1 % 08/04/2024 9:24 AM [facility] RBC 4.14(L) 4.20 - 5.40 M/uL 08/04/2024 9:24 AM [facility] HEMOGLOBIN 13.2 12.0 - 16.0 g/dL 08/04/2024 9:24 AM [facility] HEMATOCRIT 41.7 36.0 - 46.0 % 08/04/2024 9:24 AM [facility] MCV 100.7 84.0 - 103.0 fL 08/04/2024 9:24 AM [facility] MCH 31.9 27.0 - 34.0 pg 08/04/2024 9:24 AM [facility] MCHC 31.7 30.0 - 35.0 g/dL 08/04/2024 9:24 AM CDT [facility] PLATELETS 178 140 - 440 K/uL 08/04/2024 9:24 AM CDT [facility] MPV 10.0 8.9 - 12.8 fL 08/04/2024 9:24 AM CDT [facility] RDW 18.4(H) 11.0 - 14.5 % 08/04/2024 9:24 AM CDT [facility] RDW-STDEV 68.4(H) 37.0 - 54.0 fL 08/04/2024 9:24 AM CDT [facility] Blood Venipuncture / Unknown 08/04/2024 9:09 AM CDT 08/04/2024 9:17 AM CDT us Lenin Amezquita MD HEMATOLOGY ORDERABLES Final Resu lt Performing Organization Address City/State/[facility] Co de Phone Number [facility] CLIA # [id number] [address] [place] [address] * HCG QUANTITATIVE, BLOOD (08/04/2024 4:11 AM CDT) Pathologist [facility] HCG QUANT, BLOOD 0.1 0.0 - 1.0 mIU/mL 08/04/2024 5:12 AM CDT [facility] Comment: HCG Quantitative Reference Range Male [...] Mclean MD CHEMISTRY ORDERABLES Final Res ult [facility] LABORATORY SERVICES [facility] # [id number] [facility] [address] * CTA CHEST W AND/OR WO CONTRAST [...] - 4.20 uIU/mL 08/02/2024 10:15 PM CDT [facility] Blood Venipuncture / Unknown 08/02/2024 9:23 PM CDT 08/02/2024 9:34 PM CDT us Tiffanie Childress HANDHOLE MACHINE OPERATOR CHEMISTRY ORDERABLES Final Res ult Performing Organization Address [facility] de Phone Number [facility] CLIA # [id number] [address] [address] * (ABNORMAL) VANCOMYCIN LEVEL TROUGH (07/30/2024 11:41 AM CDT) VANCOMYCIN, TROUGH 9.7(L) 10.0 - 17.0 ug/mL 07/30/2024 12:26 PM CDT [facility] Blood Venipuncture / Unknown 07/30/2024 11:41 AM CDT 07/30/2024 11:54 AM CDT us Jennifer Sanchez MD CHEMISTRY ORDERABLES Final Resu lt Performing Organization Address [facility] de Phone Number [facility] CLIA # [id number] [address] [address] * PHOSPHORUS (07/29/2024 6:04 AM CDT) Pathologist [facility] PHOSPHORUS 2.7 2.5 - 4.5 mg/dL 07/29/2024 6:50 AM CDT [facility] Blood Venipuncture / Unknown 07/29/2024 6:04 AM CDT 07/29/2024 6:08 AM CDT us Efraín Dey DO CHEMISTRY ORDERABLES Final R esult Performing Organization Address [facility] Co de Phone Number [facility] CLIA # [id number] [address] [address] [place] [address] * (ABNORMAL) HEMOGLOBIN A1C (07/28/2024 9:29 PM CDT) [facility] HEMOGLOBIN A1C 8.9(H) <=5.6 % 07/30/2024 8:43 AM CDT [facility] EST. AVG GLUCOSE, A1C 209 mg/dL 07/30/2024 8:43 AM CDT [facility] Blood Venipuncture / Unknown 07/28/2024 9:29 PM CDT 07/28/2024 9:50 PM CDT Narrative [facility] - 07/30/2024 8:43 AM CDT HGB A1C INTERPRETATION NORMAL: <5.7% PRE-DIABETES: 5.7 - 6.4% DIABETES: 6.5% OR GREATER us Efraín Dey DO CHEMISTRY ORDERABLES Final R esult Performing Organization Address [facility] Co de Phone Number [facility] CLIA # [id number] [address] [address] * EXTRA TUBE (SST/GOLD) (07/28/2024 3:47 PM CDT) Blood Venipuncture / Unknown 07/28/2024 3:47 PM CDT 07/28/2024 3:56 PM CDT us Aki Briceno DO CHEMISTRY ORDERABLES Final Re sult Performing Organization Address [facility] Co de Phone Number [facility] CLIA # [id number] [address] [address] * PNEUMONIA PATHOGEN PCR PANEL (07/23/2024 6:15 AM CDT) [facility] Pneumonia Pathogen PCR Panel NOT DETECTED No nucleic acids detected. 07/23/2024 1:18 PM CDT [facility] Sputum COUGHED SPUTUM SPECIMEN / Unknown Collection / Unknown 07/23/2024 6:15 AM CDT 07/23/2024 6:15 AM CDT Narrative [facility] - 07/23/2024 1:18 PM CDT NOTE: Per the weaving machine operator, this current lot of reagent may be insensitive for the full detection of adenoviruses. If adenovirus is within the differential diagnosis, the specimen may be submitted to a reference laboratory for further testing. If desired, order [id number] Lab Test, stating Adenovirus by PCR testing in the ordering comment and notify the Microbiology lab at [phone]. A negative result does not exclude the [...] MICROBIOLOGY - GENERAL ORDERABLE S Final Result [facility] CLIA # [id number] [address] [address] * SPUTUM CULTURE WITH GRAM STAIN (07/23/2024 6:15 AM CDT) CULTURE No pathogens isolated. Normal respiratory kota present. 07/25/2024 7:06 AM CDT [facility] GRAM STAIN Smear contains </=10 squamous epithelial cells per low power field 07/25/2024 7:06 AM CDT [facility] GRAM STAIN <25 PMN WBC/LPF 7:06 AM CDT [facility] GRAM STAIN Mixed kota with no predominate morphology 07/25/2024 7:06 AM CDT [facility] Sputum COUGHED SPUTUM SPECIMEN / Unknown Collection / Unknown 07/23/2024 6:15 AM CDT 07/23/2024 6:15 AM CDT Yasmeen Lovett MD MICROBIOLOGY - GENERAL ORDERABLE S Final Result [id number] [address] [place] [address] * Critical Care (07/21/2024 1:16 PM CDT) [...] operative report for details. Narrative Procedure Note Mier Acosta MD - 07/20/2024 IMPRESSION: Please see [...] not difficult Staffing Performed: Anesthesiologist (/) and LANDSCAPING AND GROUNDSKEEPING LABORER/CAA Authorized by: Aki Garcia MD Performed by: [...] RAPID SCREEN (07/14/2024 3:44 PM CDT) Pathologist [facility] MRSA PCR RESULT MRSA not detected MRSA not detected 07/14/2024 5:12 PM CDT [facility] [employer] [facility] Surveillance ANTERIOR NARES SWAB / Unknown Collection / Unknown 07/14/2024 3:44 PM CDT 07/14/2024 3:53 PM CDT Narrative [facility] [employer] [facility] - 07/14/2024 5:12 PM CDT This assay [...] O RDERABLES Final Result [facility] CLIA # [id number] [address] [facility] [place] [address] * XR TIBIA AND FIBULA 2 VW [...] AM CDT Narrative 07/15/2024 9:45 AM CDT [facility] Cardiovascular Services Noninvasive Vascular Laboratory [facility] [place] [address] Noninvasive Vascular Lab Venous Exam Unilateral Lower Extremity Duplex Patient: Le Diaz Study ID: US VENOUS DOPPLE Gender: F : 1965 Age: 59 Room: Height: 165.1cm Weight: 95.3kg BSA: 2.13m^2 Pt status: Emergency Study Date: 07/14/2024 Study Time: 09:47:06 AM BSA: 2.13m^2 Ordering: Abel Singletary Interpreting:Prince Luana Employee Benefits Director: Kofi Leon Indications: Extremity Edema. Summary Impression: [...] Patent; Normal phasicity; spontaneous; compressible; normal augmentation [facility] Vascular Lab is accredited with the Intersocietal Commission for the Accreditation of Vascular Laboratories (ICAVL) Prepared and Electronically Authenticated Prince Luana Confirmed 07/15/2024 09:45 Procedure Note Prince Craft MD - 07/15/2024 [facility] Cardiovascular Services Noninvasive Vascular Laboratory [address] [place] [place] [address] Noninvasive Vascular Lab Venous Exam Unilateral Lower Extremity Duplex Patient: Le Diaz Study ID: US VENOUS DOPPLE Gender: F : 1965 Age: 59 Room: Height: 165.1cm Weight: 95.3kg BSA: 2.13m^2 Pt status: Emergency Study Date: 07/14/2024 Study Time: 09:47:06 AM BSA: 2.13m^2 Ordering: Abel Singletary Interpreting:Prince Luana Employee Benefits Director: Kofi Leon Indications: Extremity Edema. Summary Impression: [...] femoral Patent; Normal phasicity; spontaneous;compressible; normal augmentation [facility] Vascular Lab is accredited with theIntersocietal Commission for the Accreditation of Vascular Laboratories (ICAVL) Prepared and Electronically Authenticated Prince Lele Craft 07/15/2024 09:45 us Abel Singletary MD US ORDERABLES Final Result * (ABNORMAL) SEDIMENTATION RATE (07/14/2024 8:51 AM CDT) Only the most recent of2 resultswithin the time period is included. [facility] Signature ESR (SEDIMENTATION RATE) 52(H) 0 - 20 mm/Hr 07/14/2024 11:09 AM CDT [facility] Blood Venipuncture / Unknown 07/14/2024 8:51 AM CDT 07/14/2024 8:56 AM CDT Abel Singletary MD HEMATOLOGY ORDERABLES Final Re sult Performing Organization Address [facility]/ZIP Co de Phone Number [facility] CLIA # [id number] [address] [id number] * (ABNORMAL) C-REACTIVE PROTEIN (07/14/2024 8:51 AM CDT) Only the most recent of2 resultswithin the time period is included. CRP 43.4(H) 0.0 - 5.0 mg/L 07/14/2024 11:11 AM CDT [facility] Blood Venipuncture / Unknown 07/14/2024 8:51 AM CDT 07/14/2024 8:56 AM CDT Abel Singletary MD CHEMISTRY ORDERABLES Final Res ult Performing Organization Address [facility] de Phone Number [facility] CLIA # [id number] [address] [id number] * ECHOCARDIOGRAM W/ CONTRAST AGENT (07/06/2024 9:15 AM CDT) EJECTION FRACTION 50 INTERFACE SYSTEM 07/06/2024 8:26 AM CDT Narrative INTERFACE SYSTEM - 07/06/2024 3:59 PM CDT [facility] Cardiovascular Services Echocardiography Laboratory [address] [place] [address] Transthoracic Echocardiography Patient: Le Diaz Study ID: ECHO COMPLETE - Gender: F : 1965 Age: 58 Room: [facility] Study Date: 07/06/2024 Pt Status: Inpatient Study Time: 08:26:26 AM CSN #: [id number] Ordering:Raúl Rod Employee Benefits Director: Brenda Almanza Indications and History: Check wall [...] (H) robbie values outside specified reference range. [facility] Echo Labs are accredited with the Interskaleida healthetal Accreditation Commission - Echocardiography. Prepared and Electronically Authenticated Raúl Rod Confirmed 07/06/2024 15:59 Procedure Note Raúl Rod MD - 07/06/2024 [facility] Cardiovascular Services Echocardiography Laboratory [facility] [place] [address] Transthoracic Echocardiography Patient: Le Diaz Study ID: ECHOCOMPLETE - Gender: F : 1965 Age: 58 Room: [facility] Study Date: 07/06/2024 Pt Status: Inpatient Study Time: 08:26:26 AM CSN #: [id number] Ordering:Raúl Rod Employee Benefits Director: Brenda Almanza Indications and History: Check wall [...] (H) robbie values outside specified reference range. [facility] Echo Labs are accredited with theIntersocietal Accreditation [...] AM CDT Narrative 07/04/2024 9:25 AM CDT [facility] Cardiovascular Services Noninvasive Vascular Laboratory [facility] [place] [address] Noninvasive Vascular Lab Venous Exam Unilateral Lower Extremity Duplex Patient: Le Diaz Study ID: US VENOUS DOPPLE Gender: F : 1965 Age: 58 Room: 4114 Height: 162.6cm Weight: 95.4kg BSA: 2.12m^2 Pt status: Inpatient Study Date: 07/01/2024 Study Time: 07:03:35 AM BSA: 2.12m^2 Ordering: Landon Blankenship Interpreting:Danny Lancaster Employee Benefits Director: Yoly Fair RVT Indications: R/o dvt. Summary [...] Patent; Normal phasicity; spontaneous; compressible; normal augmentation [facility] Vascular Lab is accredited with the Intersocietal Commission for the Accreditation of Vascular Laboratories (ICAVL) Prepared and Electronically Authenticated Danny Lancaster Confirmed 07/04/2024 09:25 Procedure Note Danny Lancaster MD - 07/04/2024 [facility] Cardiovascular Services Noninvasive Vascular Laboratory [facility] [place] [address] Noninvasive Vascular Lab Venous Exam Unilateral Lower Extremity Duplex Patient: Le Diaz: [id number] Study ID: US VENOUS DOPPLE Gender: Kingsley : 1965 Age: 58 Room: 4114 Height: 162.6cm Weight: 95.4kg BSA: 2.12m^2 Pt status: Inpatient Study Date: 07/01/2024 Study Time: 07:03:35 AM BSA: 2.12m^2 Ordering: Landon Blankenship Interpreting:Danny Lancaster Employee Benefits Director: Yoly Fair RVT Indications: R/o dvt. Summary [...] saphenous Patent; Normal phasicity; spontaneous;compressible; normal augmentation [facility] Vascular Lab is accredited with theIntersocietal Commission [...] <10.10 <10.10 mg/dL 06/30/2024 9:10 PM CDT [facility] ETHANOL % <0.01 <=0.01 %w/v 06/30/2024 9:10 PM CDT [facility] Blood Venipuncture / Unknown 06/30/2024 7:59 PM CDT 06/30/2024 8:12 PM CDT Result [facility] Aki Booth DO CHEMISTRY ORDERABLES Fi nal Result [facility] # [id number] [address] [place] [address] * Critical Care (06/30/2024 7:02 PM CDT) [...] of the following conditions: Cardiac failure and MANAGER TRAFFIC failure or compromise (Irregular heart rate, pneumonia, [...] * (ABNORMAL) LIPID PANEL (02/19/2024 5:29 AM SOILS ENGINEER) CHOLESTEROL 188 <200 mg/dL 02/19/2024 10:25 AM [facility] TRIGLYCERIDE 104 <150 mg/dL 02/19/2024 10:25 AM [facility] HDL 36(L) 40 - 59 mg/dL 02/19/2024 10:25 AM [facility] LDL CALCULATED 131(H) <100 mg/dL 02/19/2024 10:25 AM [facility] NON-HDL CHOLESTEROL 152(H) <130 mg/dL 02/19/2024 10:25 AM [facility] Blood Venipuncture / Unknown 02/19/2024 5:29 AM SOILS ENGINEER 02/19/2024 5:34 AM [facility] Narrative [facility] - 02/19/2024 10:25 AM [facility] TOTAL CHOLESTEROL mg/dL Desirable <200 Borderline high [...] Artis MD CHEMISTRY ORDERABLES Final R esult [facility] CLIA # [id number] [address] [address] * MICROALBUMIN/CREATININE RATIO, RANDOM UR (02/26/2023 3:01 PM SOILS ENGINEER) Creatinine, Urine 199 20 - 275 mg/dL [facility] MICROALBUMIN, URINE 1.9 See Note: mg/dL [facility] Comment: Reference Range: Reference Range Not established MICROALBUMIN/CREAT RATIO, UR 10 <30 mcg/mg creat [facility] Comment: The ADA defines abnormalities in [...] category. FASTING:UNKNOWN FASTING: UNKNOWN Test Performed at: [facility] [address] [place] [address] Emily Dumont MD Urine URINE SPECIMEN OBTAINED BY CLEAN CATCH PROCEDURE / Unknown 02/26/2023 3:01 PM SOILS ENGINEER 02/26/2023 3:02 PM SOILS ENGINEER Ryann Burk MD URINE ORDERABLES Final Result [facility] [phone] [facility] [address] [place] [address] * CERV/VAG CYTO SCREEN PAP W/HPV (01/06/2023 12:00 AM CDT) Pathologist [facility] CLINICAL INFORMATION [facility] [place] Comment:None given LAST MENSTRUAL PERIOD [facility] [place] Comment:NONE GIVEN PREV PAP: [facility] [place] Comment:NONE GIVEN PREV BX: [facility] [place] Comment:NONE GIVEN SOURCE [facility] [place] Comment:ENDOCERVIX ADEQUACY: [facility] [place] Comment: Satisfactory for evaluation. Endocervical/transformation zone component present. Age and/or menstrual status not provided PAP INTERP [facility] [place] Comment: Cytology Results: Negative for intraepithelial lesion or malignancy. COMMENT (PAP TEST) [facility] [place] Comment: This Pap test has been evaluated with computer assisted technology. MANAGER VAN: [facility] [place] Comment: BKA, CT(ASCP) CT screening location: [place] [address] [place] [address] EXPLANATORY NOTE [facility] [facility] [place] Comment: EXPLANATORY NOTE: The Pap is a [...] information. HPV E6/E7 Not Detected Not Detected [facility] [employer] [employer] [facility] [place] Comment: Methodology: Senior Insight Manager International-Mediated Amplification This assay detects E6/E7 viral messenger RNA (mRNA) from 14 high-risk HPV types (16,18,31,33,35,39,45,51,52,56,58,59,66,68). Cervical sources are required for HPV testing. If a vaginal source from a patient who has had a total hysterectomy with removal of cervix was submitted, please contact the testing laboratory for alternative testing options. For additional information, please refer to http://education.[employer]/faq/PYO369j3 (This link if provided for information/ educational purposes only.) Test Performed at: [facility] [address] [place] [address] Emily TRAN Genital SWAB OF ENDOCERVIX / Unknown 01/06/2023 01/08/2023 10:07 AM CDT Ryann Burk MD PATHOLOGY/CYTOLOGY ORDERABLES [facility] Result [facility] [phone] [facility] [address] [place] [address] * MAMMO DIAGNOSTIC UNI RIGHT W OR [...] of Phone Billing Address Personal/Family [address] [place] [address] RX INFOCROSSING Medicaid RX [employer] PL[employer] (INTERNAL) [facility] [place] [address] Advance Directives For more information, please contact: [phone] Documents on File Type Date Recorded 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
--- OUTSIDE RECORDS SUMMARY | 2024-09-18 22:00 | XMS_ITS | CCD ---
Author Name Interface, [id number] [facility] Address [facility] [place] [address] [facility] Address [address] [place] [address] Care Team Providers Care Grease Worker Name Role Phone Anika VALLADARES, Allen Unavailable Unavailable Allergies and Adverse Reactions Reason for Visit Medications Problems Social History
--- OUTSIDE RECORDS SUMMARY | 2024-09-18 22:00 | XMS_ITS | Encounter Summary ---
Author Organization [facility] Address [address] [place] [address] Care Team Providers Care Doctor Of Radiology Name Role Phone Delta Wade MD Primary Care Provider [phone] Encounter Details Date Type Department Care Team (Latest Contact Info) Description 08/04/2024 Results Follow-Up [facility] Emergency Department [address] [place] [address] Ayana Roman RN BLOOD CULTURE, [...] 06/13/2019 How often do you attend [facility] or protestant services? More than 4 times per year 06/13/2019 Do you belong to any clubs o r organizations such as sikhism groups, unions, fraternal or athletic groups, or [...] on file Legal Sex Female 11:49 PM SOCIAL MEDIA INTERN Gender Identity Not on file Sexual Orientation Not on file documented as of this encounter Plan of Treatment Upcoming Encounters Date Type Department Care Team (Late st Contact Info) Description 09/22/2024 10:00 AM CDT Office Visit [facility] [address] [place] [address] Jerson Salas, ANDERS [address] [place] [address] 10/06/2024 4:00 PM CDT Office Visit [facility] [address] [place] [address] Cristian Metcalf, RALEIGH [address] [place] [address] documented as of this encounter [...] documented as of this encounter Care Teams Doctor Of Radiology Relationship Specialty Start Date End Date Delta Wade MD [address] [address] PCP - General Family Practice 03/25/24 documented as of this encounter
--- OUTSIDE RECORDS SUMMARY | 2024-09-18 22:00 | XMS_ITS | Encounter Summary ---
Author Organization [facility] Address [address] [place] [address] Care Team Providers Care Tile Burner Name Role Phone Delta Wade MD Primary Care Provider [phone] Reason for Visit * Reason Comments Hospital Follow Up Encounter Details Date Type Department Care Team (Late st Contact Info) Description 05/13/2024 Telephone [facility] [place] [address] [facility] [address] [place] [address] Kay Lima, [facility] [address] [facility] [address] [place] [address] Hospital Follow Up Social History [...] often do you attend chur ch or mormon services? More than 4 times per year 06/13/2019 Do you belong to any clubs o r organizations such as holiness groups, unions, fraternal or athletic groups, or [...] on file Legal Sex Female 11:49 PM NURSING ASSISTANTS TEACHER Gender Identity Not on file Sexual Orientation Not on file documented as of this encounter Miscellaneous Notes * Telephone Encounter - Danyell Rashid - 05/13/2024 12:30 PM NURSING ASSISTANTS TEACHER Called pt back. Could not leave voicemail. If patient calls back please schedule for hospital follow up appointment for the next opening spot. Can be vv if patient cannot travel to clinic. ING ASSISTANTS TEACHER * Telephone Encounter - Gypsy Gerber - 05/13/2024 12:02 PM CST Copied from [facility] #[id number]. Topic: Reschedule/Cancel Appointment/Late Arrival >> May 13, [...] of hospital discharge? 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 ASSISTANTS TEACHER documented in this encounter Plan of Treatment Upcoming Encounters Date Type Department Care Team (Late st Contact Info) Description 09/22/2024 10:00 AM CDT Office Visit [facility] [address] [place] [address] Jerson Salas PA [address] [place] [address] 10/06/2024 4:00 PM CDT Office Visit [facility] Pulmonology [address] [place] [address] Cristian Metcalf FNP [address] [place] [address] documented as of this encounter Goals Goal [...] R/O COVID-19 05/13/2024 05/13/2024 05/14/2024 4:15 AM NURSING ASSISTANTS TEACHER R/O Respiratory 06/30/2024 06/30/2024 06/30/2024 1 [...] documented as of this encounter Care Teams Tile Burner Relationship Specialty Start Date End Date Delta Wade MD [address] [address] PCP - General Family Practice 03/25/24 documented as of this encounter
== END 2024-09-18 21:46 | disposition left against medical advice (07) ==
LOC: ER 21:56
PROVIDERS: Emergency Provider Physician Assistant; PCP Family Medicine
DX: J42 Unspecified chronic bronchitis (principal); D72.89 Other specified disorders of white blood cells; Z53.21 Procedure and treatment not carried out due to patient leaving prior to being seen by health care provider; Z79.01 Long term (current) use of anticoagulants; Z79.4 Long term (current) use of insulin; Z87.891 Personal history of nicotine dependence; I25.10 Atherosclerotic heart disease of native coronary artery without angina pectoris; I10 Essential (primary) hypertension
CPT/HCPCS: 99283

== ENCOUNTER 2024-09-29 22:21 | Emergency (ER) | payer MEDICAID, SELFPAY ==
--- OUTSIDE RECORDS SUMMARY | 2020-06-27 10:30 | XMS_ITS | Continuity of Care Document ---
Author Organization [facility] Address [address] [place] [address] Phone Care Team Providers Care Oleomargarine Maker Name Role Phone Unavailable Unavailable Unavailable Allergies, [...] - Active Procedures Procedure Date OFFICE/OUTPATIENT VISIT, [facility] Advance Directives Directive Yes / No Effective Date File Name No Information Encounters Encounter Description Practice Location Reason(s) For Visit Diagnoses Date Provider Providers Copied on Encounter OFFICE/OUTPA TIENT VISIT, [facility], [address], [place], [place], [address] , [place] tel: [phone] [facility] follow up [...] party ID Authoriza dioni(s) Medicaid - Medical [id number] Social History Type Description Quantity Date Captured [...] her vagina and is being managed at [facility]. Patient has HTN, hip pain, [...] her vagina and is being managed at [facility]. Patient has HTN, hip pain, [...]
--- OUTSIDE RECORDS SUMMARY | 2024-07-19 03:00 | XMS_ITS ---
Author Organization [facility] Address [address] [facility] [place] [address] Care Team Providers Care Pulp Mill Supervisor Name Role Phone Delta Wade Primary Care Provider Jose Cruz Harvey [phone] REASON FOR VISIT [phone] Encounters Encounter Location Date Provider Diagnosis [facility] [address] [place] [address] [place] [address] 07/19/2024 Jose Cruz Forde Plan Of Treatment No Information Progress Notes * GIANFRANCO DIAZDOB: 6 (59 yo F)Acc No.[id number]:07/19/2024 Pulmonary Function Test Patient: Jahaira GIANFRANCO HANNA Provider: Abdirahman Forde MD :1965 A ge:59 Y S ex:Female Date:07/19/2024 Address:[address] [place], [place] [phone] Pcp:Delta Wade Subjective: * Chief Complaints: * 1 . [id number]. * Medical History: Objective: * Vitals: Assessment: Plan: * Treatment: * Billing Information: * Visit Code: * Procedure Codes: * Electronic signature of Natasha Forde MD on 09/29/2024 at 10:26 PM CDT Sign off status: Pending * Provider: Abdirahman Forde MD Date: 07/19/2024 Generated for Sydnii ng/Fatereg/eTransmitting on: 0 09/29/2024 10:26 PM CDT
--- OUTSIDE RECORDS SUMMARY | 2024-07-19 05:10 | XMS_ITS ---
Author Organization [facility] Address [address] [facility] [place] [address] Care Team Providers Care Electrical Repairer Name Role Phone Delta Wade Primary Care Provider Jose Cruz Harvey Unavailable [phone] REASON FOR VISIT abnormal chest CT Medications [...] Active Encounters Encounter Location Date Provider Diagnosis [facility] [address] [place] [address] [place] [address] 07/19/2024 Jose Cruz Forde Solitary pulmonary nodule [...] remission (ICD-10 - F17.211) Patient smoked a shno-nba-pow for 45 years. She has been abstinent [...] cigaret taiwo, in remission Patient smoked a ygbs-jjp-yup for 45 yea rs. She has been abstinent for a year now. Shortness of breath Obtain PFT. Progress Notes * DIAZ, GIANFRANCO PageDOB: 6 (59 yo F)Acc No.[id number]:07/19/2024 Progress Notes Patient: GIANFRANCO GARCIA Provider: Abdirahman Forde MD :1965 A ge:59 Y S ex:Female Date:07/19/2024 Address:[address] [place], [place] [phone] Pcp:Delta Wade Subjective: * Chief Complaints: * [...] ION 07/08/24 but was hospitalized twice at [facility] and unable to complete her [...] cigarettes, in remission Notes: Patient smoked a anex-dqh-kfa for 45 years. She has been abstinent [...] 07/19/2024 Generated for Mani contreras/Moshe/Adrianitting on: 0 09/29/2024 10:26 PM CDT History and Physical Notes * [...] ION 07/08/24 but was hospitalized twice at [facility] and unable to complete her [...]
--- OUTSIDE RECORDS SUMMARY | 2024-07-22 05:00 | XMS_ITS ---
Author Organization [facility] Address [address] [facility] [place] [address] Care Team Providers Care Deputy Commissioner Name Role Phone Delta Wade Primary Care Provider Jose Cruz Harvey [phone] Encounters Encounter Location Date Provider Diagnosis [facility] [address] [place] [address] [place] [address] 07/22/2024 Jose Cruz Fodre Plan Of Treatment No Information Progress Notes * GIANFRANCO DIAZDOB: [birth year] (59 yo F)Acc No.[id number]:07/22/2024 Patient: Jahaira HANNA GAINFRANCO Page Provider: Abdirahman Forde MD :1965 A ge:59 Y S ex:Female Date:07/22/2024 Address:[address] [place], [place] [phone] Pcp:Delta Wade * Billing Information: * Visit Code: * Procedure Codes: * Electronic signature of Natasha Forde MD on 09/29/2024 at 10:27 PM CDT Sign off status: Pending * Provider: Abdirahman Forde MD Date: 07/22/2024 Generated for Sydnii ng/Fatereg/eTransmitting on: 09/29/2024 10:27 PM CDT
--- OUTSIDE RECORDS SUMMARY | 2024-09-22 23:44 | XMS_ITS | Encounter Summary ---
Author Organization [facility] Address [address] [place] [address] Care Team Providers Care Compounding And Finishing Supervisor Name Role Phone Delta Wade MD Primary Care Provider [phone] Reason for Visit * Reason Comments Shortness of Breath Shortness of breath x 3 days; HX: COPD, on 3L NC at baseline, 93% on 3L NC Encounter Details Date Type Department Care Team (Late st Contact Info) Description 09/22/2024 11:44 PM CDT - 09/23/2024 9:48 AM CDT Emergency [facility] Emergency Department [address] [place] [address] Discharge Disposition: Left without being [...] How often do you attend chur or yazdanism services? More than 4 times per year 06/13/2019 Do you belong to any clubs o r organizations such as sabianism groups, unions, fraternal or athletic groups, or [...] on file Legal Sex Female 11:49 PM STEEL PICKLER Gender Identity Not on file Sexual Orientation [...] :Chronic obstructive pulmonary disease, unspecified COPD type ([facility]),Oxygen dependent Face to Face completed within 30 days: yes Length of Need: 99 months By: Nasal Cannula Continuously at 3 L/min. 1 Each 08/27/2023 TechLITE Pen Needle 29 gauge x 1/2 Needle USE directed with Victoza. 12/29/2022 naloxone (NARCAN) 4 mg/spray [place], Non-Aerosol EMERGENCY USE ONLY: Administer 1 spray (4 mg) in one nostril one time. May repeat in alternating nostrils every 2-3 min until responsive or EMS arrives. 2 Each 3 01/06/2023 blood sugar diagnostic StripIndications: Type 2 diabetes mellitus without complication, without long-term current use of insulin ([facility]) Use to test blood glucose up to QID PRN symptoms. 100 Each 11 12/17/2022 OneTouch Delica Plus Lancet 30 gauge USE TO test fasting blood glucose DAILY 11/04/2022 Blood-Glucose Meter KitIndications:Ty pe 2 diabetes mellitus without complication, without long-term current use of insulin ([facility]) Use to test blood glucose up to [...] that she will go to [facility]. I told her I could not do [...] stay. I advised patient to inform front end specialist nurse of any change in symptoms. The [...] Description 10/06/2024 4:00 PM CDT Office Visit [facility] Pulmonology [address] [place] [address] Crsitian Metcalf FNP [address] [place] [address] 10/11/2024 2:30 PM CDT Office Visit [facility] Neurosurgery [address] [place] [address] Jerson Salas PA [address] [place] [address] documented as of this encounter Goals Goal Patient Goal Type Associated Problems Recent Progress Patient-Stated? Author Heart Failure Goal Care Plan Heart Failure Problem No Latonya Anguiano LPN documented as of this encounter Visit Diagnoses Not on filedocumented in this encounter Additional Health Concerns Active Problems Noted Date Diagnosed Date Heart Failure Problem 05/12/2024 documented as of this encounter Care Teams Compounding And Finishing Supervisor Relationship Specialty Start Date End Date Delta Wade MD [address] [address] PCP - General Family Practice 03/25/24 documented as of this encounter
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
[2024-09-29 22:25] VITALS: BP 130/82; PULSE 84; RESP 39; TEMP 36.9; O2SAT 97; BMI 34.3
--- OUTSIDE RECORDS SUMMARY | 2024-09-29 22:26 | XMS_ITS | Encounter Summary ---
Author Organization [facility] Address [address] [place] [address] Care Team Providers Care Tube Filler Name Role Phone Delta Wade MD Primary Care Provider [phone] Encounter Details Date Type Department Care Team (Late st Contact Info) Description 06/16/2024 Telephone [facility] Ophthalmology [address] [place] [address] Eduardo Craven MD [address] [place] [address] Social History Tobacco Use Types Packs/Day [...] How often do you attend [facility] or mandaeism services? 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 Gender Identity Not on file Sexual Orientation [...] Description 10/06/2024 4:00 PM CDT Office Visit [facility] Pulmonology [address] [place] [address] Cristian Metcalf FNP [address] [place] [address] 10/11/2024 2:30 PM CDT Office Visit [facility] Neurosurgery [address] [place] [address] Jerson Salas, ANDERS [address] [place] [address] documented as of this encounter [...] documented as of this encounter Care Teams Tube Filler Relationship Specialty Start Date End Date Delta Wade MD [address] [place] [address] PCP - General Family Practice 03/25/24 documented as of this encounter
--- OUTSIDE RECORDS SUMMARY | 2024-09-29 22:26 | XMS_ITS ---
Author Organization [facility] Address [address] [place] [address] Phone Care Team Providers Care Behavioral Health Aide Name Role Phone Delta Wade MD Primary Care Provider [phone] Active Problems Problem Noted Date Diagnosed Date [...] 06/14/2019 H/O vaginal surgery 06/14/2019 Atherosclerosis of [place] co ronary artery of [place] heart without angina pectoris 06/14/2019 Urinary incontinence [...]
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
--- OUTSIDE RECORDS SUMMARY | 2024-09-29 22:26 | XMS_ITS | Encounter Summary ---
Author Organization [facility] Address [address] [place] [address] Care Team Providers Care Solar Sales Ambassador Name Role Phone Delta Wade MD Primary Care Provider [phone] Reason for Visit * Reason Comments Hospital Follow Up Encounter Details Date Type Department Care Team (Late st Contact Info) Description 05/13/2024 Telephone [facility] [place] [address] [place] [address] Kay Lima, [facility] [address] [place] [address] Hospital Follow Up Social History [...] often do you attend chur ch or spiritism services? More than 4 times per year 06/13/2019 Do you belong to any clubs o r organizations such as mu-ism groups, unions, fraternal or athletic groups, or [...] on file Legal Sex Female 11:49 PM MANAGEMENT COORDINATOR Gender Identity Not on file Sexual Orientation Not on file documented as of this encounter Miscellaneous Notes * Telephone Encounter - Danyell Rashid - 05/13/2024 12:30 PM MANAGEMENT COORDINATOR Called pt back. Could not leave voicemail. If patient calls back please schedule for hospital follow up appointment for the next opening spot. Can be vv if patient cannot travel to clinic. GEMENT COORDINATOR * Telephone Encounter - Gypsy Gerber - 05/13/2024 12:02 PM CST Copied from [facility] #[id number]. Topic: Reschedule/Cancel Appointment/Late Arrival >> May 13, [...] [facility] discharge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 documented in this encounter Plan of Treatment Upcoming Encounters Date Type Department Care Team (Late st Contact Info) Description 10/06/2024 4:00 PM CDT Office Visit [facility] Pulmonology [address] [place] [address] Cristian Metcalf FNP [address] [place] [address] 10/11/2024 2:30 PM CDT Office Visit [facility] Neurosurgery [address] [place] [address] Jerson Salas PA [address] [phone] documented as of this encounter Goals Goal [...] R/O COVID-19 05/13/2024 05/13/2024 05/14/2024 4:15 AM MANAGEMENT COORDINATOR R/O Respiratory 06/30/2024 06/30/2024 06/30/2024 1 0:36 [...] documented as of this encounter Care Teams Solar Sales Ambassador Relationship Specialty Start Date End Date Delta Wade MD [address] [address] PCP - General Family Practice 03/25/24 documented as of this encounter
--- OUTSIDE RECORDS SUMMARY | 2024-09-29 22:27 | XMS_ITS | Clinical Summary ---
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 Role Phone Delta Wade MD Primary Care Provider [phone] Allergies Active Allergy Reactions Criticality Noted Date Comments Codeine Itching Low 09/10/2018 Ketorolac Tromethamine Hives High 04/04/2008 Prochlorperazine Hives,Seizure High 07/02/2014 Propoxyphene Nausea and Vomiting High 07/02/2014 Propoxyphene N-Acetaminophen Nausea and Vomiting Low 08/03/2007 Tramadol Hives High 09/26/2019 Medications OneTouch Delica Plus Lancet 30 gauge USE TO test fasting blood glucose DAILY 11/05/19 Active Blood-Glucose Meter KitIndications: Type 2 diabetes mellitus without complication, without long-term current use of insulin ([facility]) Use to test blood glucose up to TID PRN symptoms. 1 Each 12/03/19 23 Active blood sugar diagnostic StripIndication s:Type 2 diabetes mellitus without complication, without long-term current use of insulin ([facility]) Use to test blood glucose up to QID PRN symptoms. 100 Each 11 12/18/19 Active TechLITE Pen Needle 29 gauge x 1/2 Needle USE directed with Victoza. 12/30/19 Active naloxone (NARCAN) 4 mg/spray [place], Non-Aerosol EMERGENCY USE ONLY: Administer 1 spray [...] MOUTH EVERY DAY 30 Tablet 1 07/06/19 25 Active oxyCODONE-aceta minophen (PERCOCET) 5-325 mg tablet [...] of Breath or Wheezing. 07/26/19 25 Active ranolazine ER (RANEXA) 500 mg Extended [...] by mouth daily. 30 Tablet 1 09/17/19 25 Active sertraline (ZOLOFT) 50 mg tablet Take 1 Tablet by mouth daily. 01/03/20 24 2024 Discontinued rOPINIRole (REQUIP) 0.5 mg tablet Take 0.5 mg by mouth daily at bedtime. 12/14/19 24 2024 Discontinued empagliflozin (Jardiance) 10 mg tablet Take 1 Tablet (10 mg) by mouth daily in the morning. 30 Tablet 08/07/19 25 2024 ipratropium-alb uteroL (DUONEB) 0.5 mg-3 mg(2.5 mg base)/3 mL Solution for Nebulization Take 3 mL by inhalation every 6 hours as needed for Shortness of Breath. 60 Each 1 08/27/19 25 2024 furosemide (LASIX) 40 mg tablet [...] days. 6 Tablet 09/11/19 25 2024 Discontinued predniSONE (DELTASONE) 20 mg tablet Take 2 Tablets (40 mg) by mouth daily with breakfast for 3 days, THEN 1.5 Tablets (30 mg) daily with breakfast for 3 days, THEN 1 Tablet (20 mg) daily with breakfast for 3 days, THEN 0.5 Tablets (10 mg) daily with breakfast for 3 days. 15 Tablet 09/16/19 25 2024 azithromycin (ZITHROMAX) 250 mg tablet Take 2 Tablets (500 mg) by mouth daily for 1 day, THEN 1 Tablet (250 mg) daily for 4 days. 6 Tablet 09/16/19 25 2024 Hospital, Clinic, or Other Facility Administered Medication [...] anxiety disorder) 12/02/2022 GERD (gastroesophageal reflux disease) 09/12/202 3 Opioid dependence 12/02/2022 History of cancer of [...] 06/14/2019 H/O vaginal surgery 06/14/2019 Atherosclerosis of [place] co ronary artery of [place] heart without angina pectoris 06/14/2019 Urinary incontinence [...] Encounters Date Type Department Care Team Description 09/28/2024 4:25 PM CDT - 09/28/2024 5:54 PM CDT [facility] Emergency Department [address] [place] [address] Austin Robertson MD [place], Robert C, MD Drug-seeking behavior (Primary Dx) Discharge Disposition: Left Against Medical Advice 09/22/2024 11:44 PM CDT - 09/23/2024 9:48 AM CDT [facility] Emergency Department [address] [place] [address] Discharge Disposition: Left without being seen 09/22/2024 Travel 09/16/2024 11:40 PM CDT - 09/16/2024 11:41 PM CDT [facility] Emergency Department [address] [place] [phone] Discharge Disposition: Left without being seen 09/12/2024 9:13 PM CDT - 09/15/2024 12:26 PM CDT Hospital [facility] 4B Cardiac [address] [place] [address] Robbie Yen, DO Baig, MD Esperanza Soto, MD La Perez, Michael Mathew MD COPD exacerbation ([facility]) Discharge Disposition: Home or Self Care 09/10/2024 8:59 PM CDT - 09/11/2024 12:42 AM CDT [facility] Emergency Department [address] [place] [phone] Layton Barrow MD Chronic hypoxemic respiratory failure ([facility]/HCC) (Primary Dx); Type 2 diabetes mellitus with hyperglycemia, with long-term current use of insulin ([facility]); Pulmonary emphysema, unspecified emphysema type ([facility]/HCC) Discharge Disposition: Home or Self Care 09/10/2024 12:46 PM CDT - 09/10/2024 11:59 PM CDT Hospital Encounter [facility] [address] [place] [address] Don Causey, DO Discharge Disposition: Home or Self Care 09/10/2024 11:40 AM CDT - 09/10/2024 11:59 PM CDT Hospital Encounter [facility] [address] [place] [address] Don Causey, DO Discharge Disposition: Home or Self Care 09/09/2024 10:42 PM CDT - 09/09/2024 10:46 PM CDT [facility] Emergency Department [address] [place] [phone] Discharge Disposition: Left without being seen 09/09/2024 5:38 AM CDT - 09/09/2024 12:01 PM CDT Emergency [facility] Emergency Department [address] [place] [phone] Cassius Sanderson MD Acute on chronic congestive heart failure, unspecified heart failure type ([facility]) (Primary Dx) Discharge Disposition: Home or Self Care 09/09/2024 Travel 09/01/2024 Orders Only [facility] Neurosurgery [address] [place] [phone] Jerson Salas PA Closed fracture of first lumbar vertebra, unspecified fracture morphology, initial encounter ([facility]) (Primary Dx) 08/29/2024 7:55 PM CDT - 08/30/2024 2:43 PM CDT Emergency [facility] Emergency Department [address] [place] [phone] Danitza Wayne MD Mady, Mohamed Hamdy Ahmed Mohamed, MD COPD with exacerbation ([facility]) (Primary Dx) Discharge Disposition: Home or Self Care 08/23/2024 Telephone [facility] [address] [place] [address] Veronika Yusuf, RN Anticoagulation 08/22/2024 4:18 PM CDT - 08/26/2024 6:26 PM CDT Hospital Encounter [facility] 4A Cardiac [address] [place] [address] Austin Robertson MD Abbas, MD Lacie Soto Abhaya, MD COPD exacerbation ([facility]) Discharge Disposition: Home or Self Care 08/22/2024 Travel 08/20/2024 9:19 PM CDT - 08/20/2024 9:22 PM CDT Emergency [facility] Emergency Department [address] [place] [address] Discharge Disposition: Left without being seen 08/20/2024 Travel 08/18/2024 2:20 AM CDT - 08/18/2024 3:03 PM CDT Hospital Encounter [facility] 4B Cardiac [address] [place] [address] Danny Mclean MD Gibert, MD Safia Lagunas, MD La Soto, Michael Mathew MD Back pain Discharge Disposition: Home or Self Care 08/16/2024 Telephone [facility] [address] [place] [phone] Veronika Yusuf, RN Anticoagulation 08/14/2024 6:00 PM CDT - 08/16/2024 1:22 PM CDT Hospital Encounter [facility] 4B Cardiac [address] [place] [address] Aki Booth, DO Baig, MD Rajesh Soto Lisa K, MD Kaur, MD Trini Closed compression fracture of body of L1 vertebra (CMS/HCC) Discharge Disposition: Home or Self Care 08/07/2024 8:18 PM CDT - 08/07/2024 8:45 PM CDT Emergency [facility] Emergency Department [address] [place] [address] Discharge Disposition: Left Against Medical Advice 08/05/2024 Telephone [facility] [address] [place] [address] Veronika Yusuf, RN Anticoagulation 08/04/2024 3:41 AM CDT - 08/06/2024 4:06 PM CDT Hospital Encounter [facility] 7B Medical Surgical [address] [place] [address] Danny Mclean MD Abbas, MD Alirio Soto Saroj, MD Bajor, Kapil Johnson, Acute on chronic respiratory failure with hypoxia and hypercapnia (CMS/HCC) Discharge Disposition: Home or Self Care 08/04/2024 Results Follow-Up [facility] Emergency Department [address] [place] [address] Ayana Roman RN BLOOD CULTURE, BLOOD CULTURE 08/04/2024 Travel 08/02/2024 8:48 PM CDT - 08/03/2024 3:51 AM CDT Emergency [facility] Emergency Department [address] [place] [address] Dung Bui MD Shortness of breath (Primary Dx); Bilateral arm pain Discharge Disposition: Home or Self Care 08/02/2024 Travel 07/29/2024 Telephone [facility] [address] [place] [address] Veronika Yusuf, RN Anticoagulation 07/28/2024 3:26 PM CDT - 07/31/2024 11:57 AM CDT Hospital Encounter [facility] 6B Medical Surgical [address] [place] [address] Aki Briceno, Efraín Keys, Jennifer Tamez MD Pneumonia of left lower lobe due to infectious organism Discharge Disposition: Home or Self Care 07/28/2024 Travel 07/22/2024 Telephone [facility] [address] [place] [phone] Veronika Yusuf, RN Anticoagulation 07/21/2024 1:24 PM CDT - 07/25/2024 3:15 PM CDT Hospital Encounter [facility] 6B Medical Surgical [address] [place] [address] Abel Singletary MD Abbas, MD Bony Soto, MD Yasmeen COPD exacerbation ([facility]) Discharge Disposition: Home or Self Care 07/20/2024 6:10 PM CDT Anesthesia Event [facility] Operating Room [address] [place] [address] Aki Garcia MD 07/20/2024 5:10 PM CDT - 07/20/2024 6:14 PM CDT Surgery [facility] Operating Room [address] [place] [address] Tereso Gil, DPM TOE(S) ARTHROPLASTY 07/20/2024 1:44 PM CDT - 07/20/2024 7:52 PM CDT Hospital Encounter [facility] 3J Pre-Op [address] [place] [address] Tereso Gil, DPM Hamzahertoe of left foot Discharge Disposition: Home or Self Care 07/19/2024 Telephone [facility] [address] [place] [phone] Tereso Gil, DPPio Information (PRE-OP INSTRUCTIONS AND ARRIVAL TIME) 07/19/2024 Telephone [facility] [place] [address] [place] [phone] Tereso Gil, DPM Information (SX INFO INQUIRY) 07/18/2024 4:35 PM CDT - 07/19/2024 4:54 PM CDT Hospital Encounter [facility] 4A Cardiac [address] [place] [phone] Danny Velasquez MD Sundaram, Vignesh, MD Mady, Mohamed Hamdy Ahmed Mohamed, MD Acute respiratory distress Discharge Disposition: Home or Self Care 07/18/2024 Telephone [facility] [place] [address] [place] [phone] Terseo Gil, DPM Information (RETURNING CALL TO PT) 07/14/2024 8:33 AM CDT - 07/16/2024 12:41 PM CDT Hospital Encounter [facility] 4C Medical [address] [place] [phone] Abel Singletary MD Sohail, MD Margot Klein, MD Byron Feliz Jagdeep S, MD Cellulitis of right lower extremity Discharge Disposition: Home or Self Care 07/14/2024 Telephone [facility] [place] [address] [phone] Tereso Gil, DPM Information (NOTIFY PT OF SX DATE CHANGE) 07/14/2024 Telephone [facility] [place] [address] [place] [phone] Tereso Gil, DPM Information (RESCHED SX/ PRE-OP INSTRUCTIONS AND ARRIVAL TIME) 07/14/2024 Travel 07/13/2024 Telephone [facility] [place] [address] [phone] Tereso Gil, DPM Information (TO RESCHED SX) 2024 12:27 PM CDT - 2024 11:59 PM CDT Hospital Encounter [facility] Imaging [facility] [address] [place] [phone] Jose Cruz Sanchez MD Discharge Disposition: Home or Self Care 2024 11:57 AM CDT - 2024 11:59 PM CDT Hospital Encounter [facility] Pre Admission Tst[facility] [address] [place] [phone] Tereso Gil, DPM Discharge Disposition: Home or Self Care 2024 Travel 07/07/2024 Telephone [facility] [address] [facility] [address] [place] [phone] Raúl Rod MD schedule HFU with REPRESENTATIVE cardiology 07/05/2024 External Device Data STL ABSTRACTION Provider, Abstract 07/04/2024 [facility] Op[facility] [address] [place] [address] Eduardo Craven MD 07/04/2024 Refill [facility] [address] [facility] [address] [place] [phone] Ashley Virgen NP Chest pain, unspecified type; Congestive heart failure, unspecified HF chronicity, unspecified heart failure type ([facility]/HCC) 07/02/2024 8:47 PM CDT - 07/06/2024 7:37 PM CDT Hospital Encounter [facility] 4A Cardiac [address] [place] [address] Danny Mclean MD Elgayesh, MD Byron Garcias Jagdeep S, MD Shah, Matilde Henry MD Bipolar affective disorder ([facility]/HCC) Discharge Disposition: Left Against Medical Advice 07/02/2024 Travel 07/01/2024 Telephone [facility] [address] [place] [address] Madelin, Veronika D, RN Anticoagulation 06/30/2024 7:21 PM CDT - 07/02/2024 12:38 PM CDT Hospital Encounter [facility] 4A Cardiac [address] [place] [address] Aki Booth DO Elgayesh, MD Byron Garcias Jagdeep S, MD Pneumonia of left lower lobe due to infectious organism Discharge Disposition: Home or Self Care 06/30/2024 Travel from Last 3 Months Immunizations Immunization Administration [...] PNEUM OCOCCAL CONJUGATE VACCINE 20-VALENT (PCV20), POLYSACCHARIDE MRY588 CONJUGATE, ADJUVANT 0.5 ML (PF) IM 06/05/2023,12/02/2022,12/25/2021 [...] How often do you attend chur or church services? 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 Gender Identity Not on file Sexual Orientation [...] Mass Index 38.11 09/22/2024 6:26 PM CDT Plan of Treatment Upcoming Encounters Date Type Department Care Team (Late st Contact Info) Description 10/06/2024 4:00 PM CDT Office Visit [facility] Pulmonology [address] [place] [address] Cristian Metcalf, RALEIGH [address] [place] [address] 10/11/2024 2:30 PM CDT Office Visit [facility] Neurosurgery [address] [place] [address] Jerson Salas PA [address] [place] [address] Health Maintenance Due Date Last [...] 2023 10/02/2021, 02/27/2021, 05/23/2020, Additional history exists Preventative Visit-Managed Medicaid 01/08/2024 01/06/2023 DIABETES MICROALBUMIN ANNUAL SCREEN 02/27/2024 02/26/2023 INFLUENZA VACCINE (#1) 2024 4, 12/02/2022, 12/25/2021, Additional history exists DIABETES HBA1C Q 6 MONTHS 01/28/20252024, 02/19/2024, 07/10/2023, Additional history exists LDL CHOLESTEROL ANNUAL 02/18/2025 , 06/23/2023, 02/26/2023, Additional history exists DIABETES ANNUAL RETINAL EXAM 03/31/202511/2024, 03/31/2024, 03/31/2024, Additional history exists PAP SMEAR 01/06/2026 01/06/2023, 09/18/2021 CERVICAL CANCER SCREENING 01/07/2028 HPV/Cotest (21-29) 01/07/2028 01/06/2023 HPV/Cotest (30-65) 01/07/2028 01/06/2023 DTAP/TDAP/TD VACCINES (3 - T d or Tdap) 07/01/2032 07/01/2022, 03/24/2011 Goals Goal Patient Goal Type Associated Problems Recent Progress Patient-Stated? Author Heart Failure Goal Care Plan Heart Failure Problem No Latonya Anguiano LPN Medical Devices Implanted Type Area Outer Diameter Grinder Tool Device Identifier Shelf Expiration Date Model / Serial / Lot Dev Closure Angioseal 6fr Vip [id number] - [id number] Implanted:Qty: 1 on 03/21/2024 by Kyler Helm MD at [facility] Closure Device Right: Groin TERUMO- CARDIOVASC SYS [id number] 10/25/2024 [id number] / / [id number] 93 Imp Toe Phalinx 10 Solid Angl Sml [id number] - [id number] Implanted:Qty: 1 on 07/20/2024 by Tereso Gil DPM at [facility] Toe Left: Foot [id number] 12/29/2031 [id number] / / [id number] Procedures Procedure Name Priority Date/Time Associated Diagnosis Comments EKG 12-LEAD Stat 09/28/2024 5:01 PM CDT XR CHEST PA OR AP 1 VW Stat 09/28/2024 5:01 PM CDT TELEMETRY REPORT 09/16/2024 3:14 AM CDT LACTIC [...] AIRWAY Routine 07/20/2024 6:2 0 PM CDT [place] CORRECTION HAMMERTOE 07/20/2024 5:10 PM CDT Hammer [...] CDT LIPID PANEL Routine 02/19/2024 5:29 AM MEDICAL RESEARCH ASSOCIATE MICROALBUMIN/CREATINI NE RATIO, RANDOM UR Routine 02/26/2023 3:01 PM MEDICAL RESEARCH ASSOCIATE Type 2 diabetes mellitus without complication, without long-term current use of insulin ([facility]) Wellness examination CERV/VAG CYTO SCREEN PAP W/HPV Routine 01/06/2023 12:00 AM CDT Wellness examination MAMMO DIAGNOSTIC UNI RIGHT W OR WO CAD Routine 01/24/2011 10:03 AM CDT Lump or mass in breast from Last 3 Months or Most Recently Relevant to Health Maintenance Results * EKG 12-LEAD (09/28/2024 5:01 PM CDT) Only the most recent of24 resultswithin the time period is included. 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 : 1965 Requested By: Order Number: [id number] Reading MD: Mana Moore Measurements Intervals [place] Rate: 105 P: 0 NH: 140 QRS: 66 QRSD: 80 T: -17 QT: 348 QTc: 459 Interpretive Statements Ectopic atrial rhythm with occasional premature ventricular complexes Cannot rule out Inferior infarct, age undetermined Abnormal ECG Electronically Signed On 09-29-2024 16:18:09 CDT by Mana Moore Procedure Note Mana Moore MD - 09/29/[address] [address] Test Date: 2024-09-28 Pat Name: LE DIAZ Department: 11 Room: 04 04 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 Anatomical [...] MD DIAGNOSTIC IMAGING ORDERABLE S Final Result * TELEMETRY REPORT (09/16/2024 3:14 AM CDT) Only the most recent of8 resultswithin the time period is included. us Provider Scanning ECG ORDERABLES Final Result * (ABNORMAL) LACTIC ACID (09/15/2024 8:00 AM CDT) Only the most recent of23 resultswithin the time period is included. LACTIC ACID 2.2(H) <=2.0 mmol/L 09/15/2024 8:42 AM CDT [facility] Blood Venipuncture / Unknown 09/15/2024 8:00 AM CDT 09/15/2024 8:03 AM CDT Michael Tovar MD CHEMISTRY ORDERABLES Final Result [facility] [employer] [facility] CLIA # [id number] [address] [facility] [place], [place] [id number] * PROTIME-INR (09/15/2024 8:00 AM CDT) Only the most recent of34 resultswithin the time period is included. PROTIME 13.8 12.7 - 14.9 Seconds 09/15/2024 8:42 AM CDT [facility] [employer] [facility] INR 1.0 0.8 - 1.2 09/15/2024 8:42 AM CDT [facility] [employer] [facility] Blood Venipuncture / Unknown 09/15/2024 8:00 AM CDT 09/15/2024 8:03 AM CDT Narrative [facility] [employer] [facility] - 09/15/2024 8:42 AM CDT Expected Values for INR: DVT/PE Goal INR 2.5; range 2.0 - 3.0 Valve Replacement Tissue Goal INR 2.5; range 2.0 - 3.0 Valve Replacement Mechanical Goal INR 3.0; range 2.5 - 3.5 POST-WA Goal INR 2.5; range 2.0 - 3.0 or Goal INR 3.0; range 2.5 - 3.5 Atrial Fibrillation Goal INR 2.5; range 2.0 - 3.0 Ischemic Stroke Goal INR 2.5; range 2.0 - 3.0 Michael Tovar MD HEMATOLOGY ORDERABLES Final Result [facility] CLIA # [id number] [address] [facility] [place], [place] [address] * (ABNORMAL) COMPREHENSIVE METABOLIC PANEL (09/15/2024 8:00 AM CDT) Only the most recent of23 resultswithin the time period is included. SODIUM 138 136 - 145 mmol/L 09/15/2024 10:22 AM [facility] POTASSIUM 4.4 3.5 - 5.1 mmol/L 09/15/2024 10:22 AM [facility] CHLORIDE 101 98 - 107 mmol/L 09/15/2024 10:22 AM [facility] CO2 20(L) 22 - 29 mmol/L 09/15/2024 10:22 AM [facility] CALCIUM 8.9 8.6 - 10.0 mg/dL 09/15/2024 10:22 AM [facility] BUN 18 6 - 20 mg/dL 09/15/2024 10:22 AM [facility] CREATININE 0.51 0.51 - 0.95 mg/dL 09/15/2024 10:22 AM [facility] GLUCOSE 238(H) 74 - 99 mg/dL 09/15/2024 10:22 AM [facility] TOTAL PROTEIN 6.2(L) 6.4 - 8.3 g/dL 09/15/2024 10:22 AM [facility] ALBUMIN 3.4(L) 3.5 - 5.2 g/dL 09/15/2024 10:22 AM [facility] BILIRUBIN TOTAL 0.3 0.0 - 1.0 mg/dL 09/15/2024 10:22 AM [facility] ALKALINE PHOSPHATASE 102 35 - 104 U/L 09/15/2024 10:22 AM [facility] AST 17 10 - 35 U/L 09/15/2024 10:22 AM [facility] Comment:Hemolysis present. R esult may be falsely elevated. ALT 39(H) <=35 U/L 09/15/2024 10:22 AM [facility] GFR >60 >=60 mL/min/1.7 3 sq meter 09/15/2024 10:22 AM [facility] Comment:eGFR calculated with 2020 CKD-EPI equation. Vegetarian diet, extremely high or low muscle mass, and may affect results. Cystatin C with Glomerular Filtration Rate is a suitable alternative for these patients. ANION GAP 17 9 - 20 mmol/L 09/15/2024 10:22 AM CDT [facility] Blood Venipuncture / Unknown 09/15/2024 8:00 AM CDT 09/15/2024 8:03 AM CDT Michael Tovar MD CHEMISTRY ORDERABLES Final Result Performing Organization Address [facility] Co de Phone Number [facility] CLIA # [id number] [address] [id number] * (ABNORMAL) POC GLUCOSE (09/15/2024 7:26 AM CDT) Only the most recent of111 resultswithin the time period is included. GLUCOSE POC 202(H) 74 - 99 mg/dL 09/15/2024 7:26 AM CDT [facility] SPECIMEN SOURCE, GLUCOSE POC Capillary 09/15/2024 7:26 AM CDT [facility] Blood, whole 09/15/2024 7:26 AM CDT 09/15/2024 7:42 AM CDT Michael Tovar MD POINT OF CARE TESTING Final Result Performing Organization Address City/[facility]/ZIP Co de Phone Number [facility] CLIA # [id number] [address] [address] * (ABNORMAL) CBC WITH DIFFERENTIAL (09/14/2024 12:08 PM CDT) Only the most recent of32 resultswithin the time period is included. WBC 10.9(H) 4.8 - 10.8 K/uL 09/14/2024 12:24 PM [facility] NRBCS 5(H) <1 % 09/14/2024 12:24 PM [facility] RBC 3.47(L) 4.20 - 5.40 M/uL 09/14/2024 12:24 PM [facility] HEMOGLOBIN 10.8(L) 12.0 - 16.0 g/dL 09/14/2024 12:24 PM [facility] HEMATOCRIT 35.2(L) 36.0 - 46.0 % 09/14/2024 12:24 PM [facility] MCV 101.4 84.0 - 103.0 fL 09/14/2024 12:24 PM [facility] MCH 31.1 27.0 - 34.0 pg 09/14/2024 12:24 PM [facility] MCHC 30.7 30.0 - 35.0 g/dL 09/14/2024 12:24 PM [facility] PLATELETS 172 140 - 440 K/uL 09/14/2024 12:24 PM [facility] MPV 11.2 8.9 - 12.8 fL 09/14/2024 12:24 PM [facility] RDW 18.9(H) 11.0 - 14.5 % 09/14/2024 12:24 PM [facility] RDW-STDEV 69.1(H) 37.0 - 54.0 fL 09/14/2024 12:24 PM [facility] NEUTROPHILS 88(H) 42 - 75 % 09/14/2024 12:24 PM [facility] LYMPHOCYTES 7(L) 24 - 44 % 09/14/2024 12:24 PM [facility] MONOCYTES 4 2 - 10 % 09/14/2024 12:24 PM [facility] EOSINOPHILS 0 0 - 7 % 09/14/2024 12:24 PM [facility] BASOPHILS 0 0 - 1 % 09/14/2024 12:24 PM CDT [facility] IMMATURE GRANULOCYTES 2 0 - 2 % 09/14/2024 12:24 PM CDT [facility] NEUTROPHIL ABSOLUTE 9.62(H) 2.00 - 8.00 K/uL 09/14/2024 12:24 PM CDT [facility] LYMPHOCYTE ABSOLUTE 0.71(L) 1.20 - 4.00 K/uL 09/14/2024 12:24 PM CDT [facility] MONOCYTE ABSOLUTE 0.38 0.10 - 0.60 K/uL 09/14/2024 12:24 PM CDT [facility] EOSINOPHIL ABSOLUTE 0.02 0.00 - 0.70 K/uL 09/14/2024 12:24 PM CDT [facility] BASOPHILS ABSOLUTE 0.02 0.00 - 0.20 K/uL 09/14/2024 12:24 PM CDT [facility] IMMATURE GRANULOCYTES ABSOLUTE 0.19(H) 0.00 - 0.10 K/uL 09/14/2024 12:24 PM T [facility] SMEAR REVIEWED: NN - No Action Needed 09/14/2024 12:24 PM [facility] Blood Venipuncture / Unknown 09/14/2024 12:08 PM CDT 09/14/2024 12:13 PM CDT Michael Tovar MD HEMATOLOGY ORDERABLES Final Result [facility] CLIA # [id number] [facility] [address] [place] [address] * (ABNORMAL) BLOOD GAS ARTERIAL (09/13/2024 8:22 PM CDT) Only the most recent of5 resultswithin the time period is included. PH BLOOD POC 7.40 7.35 - 7.45 09/13/2024 8:22 PM CDT [facility] PCO2 POC 54(H) 35 - 45 mm Hg 09/13/2024 8:22 PM [facility] PO2 POC 44(L) 80 - 105 mm Hg 09/13/2024 8:22 PM [facility] HCO3 (CALC) POC 33(H) 22 - 26 mmol/L 09/13/2024 8:22 PM [facility] HEMOGLOBIN POC 10.8(L) 12.0 - 18.0 g/dL 09/13/2024 8:22 PM [facility] BASE EXCESS POC 9(H) -2 - 3 mmol/L 09/13/2024 8:22 PM [facility] O2 SATURATION POC 78(L) 95 - 98 % 09/13/2024 8:22 PM [facility] SODIUM POC 136(L) 138 - 146 mmol/L 09/13/2024 8:22 PM [facility] POTASSIUM POC 4.2 3.5 - 4.9 mmol/L 09/13/2024 8:22 PM [facility] HEMATOCRIT POC 32(L) 38 - 51 % 09/13/2024 8:22 PM [facility] PH TEMP CORRECT 7.40 7.35 - 7.45 09/13/2024 8:22 PM [facility] PCO2 TEMP CORRECT 54(H) 35 - 45 mm Hg 09/13/2024 8:22 PM [facility] PO2 TEMP CORRECT 44(L) 80 - 105 mm Hg 09/13/2024 8:22 PM [facility] SPECIMEN SOURCE, GASES POC Arterial 09/13/2024 8:22 PM [facility] CALCIUM IONIZED POC 5.1 4.8 - 5.2 mg/dL 09/13/2024 8:22 PM [facility] TCO2 (CALC) POC 35(H) 23 - 27 mmol/L 09/13/2024 8:22 PM [facility] LITER FLOW 3.0 L/min 09/13/2024 8:22 PM [facility] SITE POC ART PUNCT 09/13/2024 8:22 PM CDT [facility] SOURCE OF OXYGEN POC Cannula 09/13/2024 8:22 PM CDT [facility] Blood, arterial 09/13/2024 8 :22 PM CDT 09/13/2024 8:24 PM CDT [facility] Margot Mata MD ABG ORDERABLES Final Re sult [facility] CLIA # [id number] [address] [place] [address] [place] [address] * XR THORACOLUMBAR SPINE 2 VW (09/13/2024 [...] anterolisthesis of L4 on L5 MACRO: None nAdrade Felton MD DIAGNOSTIC IMAGING OR DERABLES Final Result * (ABNORMAL) POC LACTIC ACID (09/13/2024 2:52 PM CDT) Only the most recent of2 resultswithin the time period is included. LACTIC ACID POC 3.2(H) <=2.0 mmol/L 09/13/2024 2:52 PM CDT [facility] SPECIMEN SOURCE, GASES POC Arterial 09/13/2024 2:52 PM CDT [facility] SITE POC ART PUNCT 09/13/2024 2:52 PM CDT [facility] Blood 09/13/2024 2:52 PM CDT 09/13/2024 2:55 PM CDT Narrative [facility] - 09/13/2024 2:52 PM CDT References ranges displayed are for Arterial samples. Peña Mata MD POINT OF CARE TESTING Fi nal Result Performing Organization Address City/[facility]/ZIP Co de Phone Number [facility] CLIA # [id number] [address] [place] [address] * BLOOD CULTURE (09/13/2024 2:15 PM CDT) Only the most recent of14 resultswithin the time period is included. BLOOD CULTURE No growth 09/18/2024 3:31 PM CDT [facility] Blood (Peripheral) Venipuncture / Unknown 09/13/2024 2:15 PM CDT 09/13/2024 2:38 PM CDT Peña Mata MD MICROBIOLOGY - GENERAL O RDERABLES Final Result [facility] CLIA # [id number] [address] [facility] [place] [address] * US ABDOMEN LIMITED (09/13/2024 1:27 PM [...] Mata MD URINE ORDERABLES Final R esult [facility] CLIA # [id number] [address] [place] [address] * (ABNORMAL) URINALYSIS WITH REFLEX MICROSCOPIC (09/13/2024 1:12 PM CDT) Only the most recent of6 resultswithin the time period is included. COLOR UA Colorless(A ) Pale to Dark Yellow 09/13/2024 1:29 PM CDT [facility] CLARITY UA Clear Clear 09/13/2024 1:29 PM CDT [facility] SPECIFIC GRAVITY UA 1.012 1.003 - 1.035 09/13/2024 1:29 PM CDT [facility] PH UA 5.5 5.0 - 8.0 09/13/2024 1:29 PM T [facility] LEUKOCYTE ESTERASE UA 2+(A) Negative 09/13/2024 1:29 PM CDT [facility] NITRITE UA Negative Negative 09/13/2024 1:29 PM CDT [facility] PROTEIN UA Negative Negative 09/13/2024 1:29 PM CDT [facility] GLUCOSE UA 2+(A) Negative 09/13/2024 1:29 PM CDT [facility] KETONES UA Negative Negative 09/13/2024 1:29 PM CDT [facility] UROBILINOGEN UA <2.0 <2.0 mg/dL 1:29 PM CDT [facility] BILIRUBIN UA Negative Negative 09/13/2024 1:29 PM CDT [facility] BLOOD UA Negative Negative 09/13/2024 1:29 PM CDT [facility] WBC UA 0-2 0 - 2 /hpf 09/13/2024 1:29 PM CDT [facility] RBC UA 0-2 0 - 2 /hpf 09/13/2024 1:29 PM CDT [facility] BACTERIA UA 2+(A) Negative /hpf 09/13/2024 1:29 PM CDT [facility] EPITHELIAL CELLS, URINE 0-5 0 - 5 /hpf 09/13/2024 1:29 PM CDT [facility] HYALINE CAST 0-2 None Seen, 0-2 /lpf 09/13/2024 1:29 PM CDT [facility] Urine URINE SPECIMEN OBTAINED BY CLEAN CATCH PROCEDURE / Unknown Collection / Unknown 09/13/2024 1:12 PM CDT 09/13/2024 1:20 PM CDT us Peña Mata MD URINE ORDERABLES Final R esult [facility] CLIA # [id number] [address] [id number] * URINE CULTURE (09/13/2024 1:12 PM CDT) [facility] CULTURE Polymicrobial growth consistent with normal urethral kota and/or colonizing bacteria 09/14/2024 11:22 AM T [facility] Urine URINE SPECIMEN OBTAINED BY CLEAN CATCH PROCEDURE / Unknown Collection / Unknown 09/13/2024 1:12 PM CDT 09/13/2024 1:20 PM CDT Peña Mata MD MICROBIOLOGY - GENERAL O RDERABLES Final Result [facility] # [id number] [address] [place] [address] * (ABNORMAL) BLOOD GAS VENOUS (09/13/2024 11:47 AM CDT) Only the most recent of6 resultswithin the time period is included. [facility] PH BLOOD POC 7.31(L) 7.32 - 7.43 09/13/2024 11:47 AM T [facility] PCO2 POC 64(H) 38 - 50 mm Hg 09/13/2024 11:47 AM T [facility] PO2 POC 66(H) 25 - 40 mm Hg 09/13/2024 11:47 AM [facility] HCO3 (CALC) POC 32(H) 22 - 29 mmol/L 09/13/2024 11:47 AM T [facility] HEMOGLOBIN POC 10.7(L) 12.0 - 18.0 g/dL 09/13/2024 11:47 AM T [facility] BASE EXCESS POC 6(H) -2 - 3 mmol/L 09/13/2024 11:47 AM [facility] O2 SATURATION POC 94(H) 40 - 70 % 09/13/2024 11:47 AM [facility] SODIUM POC 136 135 - 145 mmol/L 09/13/2024 11:47 AM T [facility] POTASSIUM POC 4.3 3.5 - 4.9 mmol/L 09/13/2024 11:47 AM CDT [facility] HEMATOCRIT POC 32(L) 38 - 51 % 09/13/2024 11:47 AM CDT [facility] PH TEMP CORRECT 7.31(L) 7.32 - 7.43 09/13/2024 11:47 AM CDT [facility] PCO2 TEMP CORRECT 64(H) 38 - 50 mm Hg 09/13/2024 11:47 AM CDT [facility] PO2 TEMP CORRECT 66(H) 25 - 40 mm Hg 09/13/2024 11:47 AM CDT [facility] SPECIMEN SOURCE, GASES POC Venous 09/13/2024 11:47 AM T [facility] CALCIUM IONIZED POC 5.3(H) 4.8 - 5.2 mg/dL 09/13/2024 11:47 AM T [facility] TCO2 (CALC) POC 34(H) 22 - 26 mmol/L 09/13/2024 11:47 AM T [facility] PUNC SITE POC No Charge 09/13/2024 11:47 AM [facility] Blood, venous 09/13/2024 11: 47 AM CDT 09/13/2024 11:49 AM CDT Peña Margot Mata MD ABG ORDERABLES Final Re sult [facility] CLIA # [id number] [address] [place] [address] * (ABNORMAL) TROPONIN 6 HR, 5TH GEN (09/13/2024 9:16 AM CDT) Only the most recent of10 resultswithin the time period is included. TROPONIN T, 6 HR 5TH GEN 29(H) <11 ng/L 09/13/2024 9:55 AM CDT [facility] DELTA 6HR TROPONIN T 1 See Interp. 09/13/2024 9:55 AM CDT [facility] Blood Venipuncture / Unknown 09/13/2024 9:16 AM CDT 09/13/2024 9:24 AM CDT Narrative [facility] - 09/13/2024 9:55 AM CDT Troponin elevated. Delta indeterminate. us Robbie Yen DO CHEMISTRY ORDERABLES F inal Result [facility] CLIA # [id number] [address] [address] [place] [address] * (ABNORMAL) BASIC METABOLIC PANEL (09/13/2024 9:16 AM CDT) Only the most recent of16 resultswithin the time period is included. SODIUM 139 136 - 145 mmol/L 09/13/2024 9:59 AM [facility] POTASSIUM 4.5 3.5 - 5.1 mmol/L 09/13/2024 9:59 AM [facility] CHLORIDE 102 98 - 107 mmol/L 09/13/2024 9:59 AM T [facility] CO2 25 22 - 29 mmol/L 09/13/2024 9:59 AM T [facility] CALCIUM 9.4 8.6 - 10.0 mg/dL 09/13/2024 9:59 AM [facility] BUN 20 6 - 20 mg/dL 09/13/2024 9:59 AM T [facility] CREATININE 0.52 0.51 - 0.95 mg/dL 09/13/2024 9:59 AM T [facility] GLUCOSE 257(H) 74 - 99 mg/dL 09/13/2024 9:59 AM T [facility] GFR >60 >=60 mL/min/1.7 3 sq meter 09/13/2024 9:59 AM T [facility] Comment:eGFR calculated with 2020 CKD-EPI equation. Vegetarian diet, extremely high or low muscle mass, and may affect results. Cystatin C with Glomerular Filtration Rate is a suitable alternative for these patients. ANION GAP 12 9 - 20 mmol/L 09/13/2024 9:59 AM CDT [facility] Blood Venipuncture / Unknown 09/13/2024 9:16 AM CDT 09/13/2024 9:25 AM CDT Nba Baig MD CHEMISTRY ORDERABLES Fi nal Result Performing Organization Address [facility] Co de Phone Number [facility] CLIA # [id number] [address] [address] [place] [address] * (ABNORMAL) TROPONIN 2 HR, 5TH GEN (09/12/2024 11:02 PM CDT) Only the most recent of14 resultswithin the time period is included. TROPONIN T, 2 HR 5TH GEN 27(H) <=10 ng/L 09/12/2024 11:41 PM CDT [facility] DELTA 2HR TROPONIN T -1 See Interp. 09/12/2024 11:41 PM CDT [facility] Blood Venipuncture / Unknown 09/12/2024 11:02 PM CDT 09/12/2024 11:10 PM CDT Narrative [facility] - 09/12/2024 11:41 PM CDT Troponin elevated. Delta not changing. oRbbie Yen DO CHEMISTRY ORDERABLES F inal Result Performing Organization Address [facility]/ZIP Co de Phone Number [facility] CLIA # [id number] [address] [id number] * RESPIRATORY PATHOGEN PCR PANEL (09/12/2024 11:02 PM CDT) Only the most recent of7 resultswithin the time period is included. [facility] Respiratory Pathogen PCR Panel NOT DETECTED No respiratory pathogen nucleic acids detected. 09/13/2024 12:31 AM CDT [facility] COVID-19 PCR NOT DETECTED Not Detected 09/13/2024 12:31 AM CDT [facility] Upper Respiratory ENTIRE NASOPHARYNX / Unknown Collection / Unknown 09/12/2024 11:02 PM CDT 09/12/2024 11:08 PM CDT [facility] - 09/13/2024 12:31 AM CDT The [...] GENERAL ORDERABLES Final Result Performing Organization Address City/[facility] Co de Phone Number [facility] CLIA # [id number] [facility] [address] * EXTRA TUBE (BLUE) (09/12/2024 9:32 PM CDT) Only the most recent of3 resultswithin the time period is included. Blood Venipuncture / Unknown 09/12/2024 9:32 PM CDT 09/12/2024 10:59 PM CDT External Provider [facility] HEMATOLOGY ORDERABLES Jana l Result Performing Organization Address [facility] Co de Phone Number [facility] CLIA # [id number] [address] [place] [address] * (ABNORMAL) TROPONIN BASELINE, 5TH GEN (09/12/2024 9:32 PM CDT) Only the most recent of14 resultswithin the time period is included. [facility] TROPONIN T, BASELINE 5TH GEN 28(H) <=10 ng/L 09/12/2024 10:15 PM CDT [facility] Blood Venipuncture / Unknown 09/12/2024 9:32 PM CDT 09/12/2024 9:41 PM CDT Narrative [facility] - 09/12/2024 10:15 PM CDT Troponin elevated. us Robbie Yen DO CHEMISTRY ORDERABLES F inal Result [facility] CLIA # [id number] [address] [facility] [place] [address] * (ABNORMAL) BRAIN NATRIURETIC PEPTIDE, BNP OR PROBNP (09/12/2024 9:32 PM CDT) Only the most recent of12 resultswithin the time period is included. [facility] PROBNP, N TERMINAL 623(H) 0 - 125 pg/mL 09/12/2024 10:22 PM CDT [facility] Comment: INTERPRETIVE COMMENT based on diagnosis: [...] Yen DO CHEMISTRY ORDERABLES F inal Result [facility] CLIA # [id number] [address] [facility] [place] [address] * Critical Care (09/12/2024 9:09 PM CDT) Narrative Robbie Yen, - 09/12/2024 9:09 PM CDT Robbie Yen [...] 36 - 66 % 09/10/2024 10:01 PM CDT [facility] LYMPHOCYTES RELATIVE 10(L) 24 - 44 % 09/10/2024 10:01 PM CDT [facility] MONOCYTES RELATIVE 2(L) 4 - 10 % 2024 10:01 PM CDT [facility] METAMYELOCYTES RELATIVE 1 0 - 1 % 09/10/2024 10:01 PM CDT [facility] MYELOCYTES - REL (DIFF) 2(H) 0 - 1 % 09/10/2024 10:01 PM CDT [facility] PLATELET EST. Adequate 09/10/2024 10:01 PM T [facility] NEUTROPHILS ABSOLUTE COUNT 6.21 2.00 - 8.00 K/uL 09/10/2024 10:01 PM T [facility] LYMPHOCYTES ABSOLUTE 0.73(L) 1.20 - 4.00 K/uL 09/10/2024 10:01 PM T [facility] ATYPICAL LYMPHS ABSOLUTE 09/10/2024 10:01 PM T [facility] MONOCYTES ABSOLUTE 0.15 0.10 - 0.60 K/uL 09/10/2024 10:01 PM T [facility] ANISOCYTOSIS 1+ /hpf 09/10/2024 10:01 PM T [facility] COTTON-JOLLY BODIES Present /hpf 09/10/2024 10:01 PM T [facility] TOTAL CELLS COUNTED IN DIFF 100 09/10/2024 10:01 PM T [facility] Blood Venipuncture / Unknown 09/10/2024 9:30 PM CDT 09/10/2024 9:33 PM CDT Layton Barrow MD HEMATOLOGY ORDERABLES COM Final Result [id number] [address] [place] [address] * D-DIMER (09/10/2024 9:30 PM CDT) Only the most recent of2 resultswithin the time period is included. D-DIMER QUANT <0.27 0.00 - 0.50 ug/mL FEU 09/10/2024 10:03 PM CDT [facility] Blood Venipuncture / Unknown 09/10/2024 9:30 PM CDT 09/10/2024 9:33 PM CDT Narrative [facility] - 09/10/2024 10:03 PM CDT [...] Barrow MD HEMATOLOGY ORDERABLES Final Res ult [facility] CLIA # [id number] [address] [place] [address] * XR CHEST PA AND LATERAL 2 [...] 0.12(H) <=0.08 ng/mL 08/30/2024 6:32 AM CDT [facility] [employer] [facility] Blood Venipuncture / Unknown 08/30/2024 5:27 AM CDT 08/30/2024 5:41 AM CDT Narrative [facility] - 08/30/2024 6:32 AM CDT The utility [...] Ferrara MD CHEMISTRY ORDERABLES Final Resul t Performing Organization Address City/State/[facility] Co de Phone Number [facility] CLIA # [id number] [address] [address] [place] [address] * INFLUENZA A/B, RSV AND COVID-19 PCR PANEL (08/30/2024 2:52 AM CDT) Only the most recent of4 resultswithin the time period is included. COVID-19 PCR NOT DETECTED Not Detected 08/31/19 25 3:49 AM CDT [facility] Influenza A by PCR NOT DETECTED Not Detected 08/30/2024 3:49 AM CDT [facility] Influenza B by PCR NOT DETECTED Not Detected 08/30/2024 3:49 AM CDT [facility] RSV by PCR NOT DETECTED Not Detected 08/30/2024 3:49 AM CDT [facility] Upper Respiratory ENTIRE NASOPHARYNX / Unknown Collection / Unknown 08/30/2024 2:52 AM CDT 08/30/2024 2:55 AM CDT Narrative [facility] - 08/30/2024 3:49 AM CDT This [...] MICROBIOLOGY - GEN ERAL ORDERABLES Final Result Performing Organization Address City/[facility] Co de Phone Number [facility] [id number] [facility] [address] [place] [address] * CT ABDOMEN PELVIS W CONTRAST (08/29/2024 [...] Hepatic steatosis 5. Prior splenectomy. Prior hysterectomy. [facility] Jairo Wayne MD CT ORDERABLES Fi nal Result * LIPASE (08/29/2024 8:09 PM CDT) Only the most recent of2 resultswithin the time period is included. LIPASE 19 13 - 60 U/L 08/29/2024 8:54 PM CDT [facility] Blood Venipuncture / Unknown 08/29/2024 8:09 PM CDT 08/29/2024 8:18 PM CDT us Danitza Wayne MD CHEMISTRY ORDERABL ES Final Result Performing Organization Address [facility] Co de Phone Number [facility] CLIA # [id number] [address] [address] [place] [address] * PTT (08/22/2024 4:32 PM CDT) Only the most recent of3 resultswithin the time period is included. PTT 25.0 24.8 - 37.2 seconds 08/22/2024 4:57 PM CDT [facility] Blood Venipuncture / Unknown 08/22/2024 4:32 PM CDT 08/22/2024 4:38 PM CDT Narrative [facility] - 08/22/2024 4:57 PM CDT Therapeutic Range: Hi-level PE/DVT heparin protocol 80.1 - 95.0 sec Lo-level PE/DVT heparin protocol 70.1 - 85.0 sec Cardiac Heparin Protocol 70.1 - 100.0 sec us Austin Robertson MD HEMATOLOGY ORDERAB LES Final Result Performing Organization Address [facility] Co de Phone Number [facility] CLIA # [id number] [address] [place] [address] * CT CHEST WO CONTRAST (08/18/2024 11:42 [...] - 2.6 mg/dL 08/18/2024 8:21 AM CDT [facility] [employer] [facility] Blood Venipuncture / Unknown 08/18/2024 6:01 AM CDT 08/18/2024 6:40 AM CDT Nba Baig MD CHEMISTRY ORDERABLES Fi nal Result [facility] [employer] [facility] CLIA # [id number] [facility] [address] * VITAMIN B12 AND FOLATE (08/16/2024 4:59 AM CDT) Only the most recent of2 resultswithin the time period is included. VITAMIN B12 374 211 - 946 pg/mL 08/16/2024 6:23 AM CDT [facility] FOLATE, SERUM 14.5 3.1 - 17.5 ng/mL 08/16/2024 6:23 AM CDT [facility] Blood Venipuncture / Unknown 08/16/2024 4:59 AM CDT 08/16/2024 5:05 AM CDT us Nayely Mena MD CHEMISTRY ORDERABLES Final Resul t [facility] CLIA # [id number] [facility] [address] * CT HUMERUS WO CONTRAST LEFT (08/15/2024 [...] - 4.20 uIU/mL 08/14/2024 8:09 PM CDT [facility] [employer] [facility] Blood Venipuncture / Unknown 08/14/2024 7:05 PM CDT 08/14/2024 7:14 PM CDT Aki Booth DO CHEMISTRY ORDERABLES Fi nal Result [facility] CLIA # [id number] [facility] [address] [address] * XR HUMERUS 2+ VW LEFT (08/14/2024 [...] present. Aki Booth DO DIAGNOSTIC IMAGING [facility] Final Result * (ABNORMAL) DRUG SCREEN, URINE (08/04/2024 11:44 AM CDT) Only the most recent of2 resultswithin the time period is included. Pathologist [facility] AMPHETAMINE QUAL, URINE Negative Negative 08/04/2024 12:30 PM CDT [facility] BARBITURATE QUAL, URINE Negative Negative 08/04/2024 12:30 PM CDT [facility] BENZODIAZEPINE QUAL, URINE Negative Negative 08/04/2024 12:30 PM CDT [facility] COCAINE QUAL URINE Negative Negative 08/04/2024 12:30 PM CDT [facility] OPIATE QUAL, URINE Negative Negative 08/04/2024 12:30 PM CDT [facility] CANNABINOIDS QUAL, URINE Negative Negative 08/04/2024 12:30 PM CDT [facility] OXYCODONE QUAL, URINE Presumptive Positive(A) Negative 08/04/2024 12:30 PM CDT [facility] METHADONE QUAL, URINE Negative Negative 08/04/2024 12:30 PM CDT [facility] FENTANYL QUAL, URINE Negative Negative 08/04/2024 12:30 PM CDT [facility] CREATININE, URINE 11.9(L) 29.0 - 226.0 mg/dL 08/04/2024 12:30 PM CDT [facility] Comment:Reference Range vari es with fluid intake and diet. Urine URINE SPECIMEN OBTAINED BY CLEAN CATCH PROCEDURE / Unknown Collection / Unknown 08/04/2024 11:44 AM CDT 08/04/2024 11:51 AM CDT [facility] - 08/04/2024 12:30 PM CDT When Urine [...] Danny Mclean MD URINE ORDERABLES Final Result [facility] CLIA # [id number] [address] [place] [id number] * UNFRACTIONATED HEPARIN MONITORING (08/04/2024 9:09 AM CDT) ANTI-XA UNFRAC HEP <0.10 See Interpretation IU/mL 08/04/2024 9:37 AM CDT [facility] Blood Venipuncture / Unknown 08/04/2024 9:09 AM CDT 08/04/2024 9:17 AM CDT [facility] - 08/04/2024 9:37 AM CDT Therapeutic Range: PT/DVT Heparin Protocol 0.3 - 0.7 IU/ml Cardiac Heparin Protocol 0.3 - 0.6 IU/ml The reference range for this test is specific to the anticoagulant and is not appropriate for monitoring patients on a DOAC protocol. us Lenin Amezquita MD HEMATOLOGY ORDERABLES Final Resu lt [facility] YAKELIN # [id number] [place] [address] * (ABNORMAL) CBC WITHOUT DIFFERENTIAL (08/04/2024 9:09 AM CDT) Only the most recent of4 resultswithin the time period is included. [facility] WBC 9.5 4.8 - 10.8 K/uL 08/04/2024 9:24 AM CDT [facility] NRBCS 1(H) <1 % 08/04/2024 9:24 AM CDT [facility] RBC 4.14(L) 4.20 - 5.40 M/uL 08/04/2024 9:24 AM CDT [facility] HEMOGLOBIN 13.2 12.0 - 16.0 g/dL 08/04/2024 9:24 AM CDT [facility] HEMATOCRIT 41.7 36.0 - 46.0 % 08/04/2024 9:24 AM CDT [facility] MCV 100.7 84.0 - 103.0 fL 08/04/2024 9:24 AM CDT [facility] MCH 31.9 27.0 - 34.0 pg 08/04/2024 9:24 AM CDT [facility] MCHC 31.7 30.0 - 35.0 g/dL 08/04/2024 9:24 AM CDT [facility] PLATELETS 178 140 - 440 K/uL 08/04/2024 9:24 AM T [facility] MPV 10.0 8.9 - 12.8 fL 08/04/2024 9:24 AM CDT [facility] RDW 18.4(H) 11.0 - 14.5 % 08/04/2024 9:24 AM [facility] RDW-STDEV 68.4(H) 37.0 - 54.0 fL 08/04/2024 9:24 AM CDT [facility] Blood Venipuncture / Unknown 08/04/2024 9:09 AM CDT 08/04/2024 9:17 AM CDT us Lenin Amezquita MD HEMATOLOGY ORDERABLES Final Resu lt [facility] CLIA # [id number] [facility] [address] [place] [address] * HCG QUANTITATIVE, BLOOD (08/04/2024 4:11 AM CDT) Pathologist [facility] HCG QUANT, BLOOD 0.1 0.0 - 1.0 mIU/mL 08/04/2024 5:12 AM CDT [facility] Comment: HCG Quantitative Reference Range Male [...] MD CHEMISTRY ORDERABLES Final Res ult [id number] [address] [address] [place] [address] * CTA CHEST W AND/OR WO CONTRAST [...] bases. 2. Otherwise, no change since 07/28/[address] ORDERABLES Final Resu lt * TSH (08/02/2024 9:23 PM CDT) Only the most recent of2 resultswithin the time period is included. TSH 2.21 0.27 - 4.20 uIU/mL 08/02/2024 10:15 PM CDT [facility] [employer] [facility] Blood Venipuncture / Unknown 08/02/2024 9:23 PM CDT 08/02/2024 9:34 PM CDT us Tiffanie Childress NP CHEMISTRY ORDERABLES Final Res ult [facility] [employer] [facility] CLIA # [id number] [address] [address] * (ABNORMAL) VANCOMYCIN LEVEL TROUGH (07/30/2024 11:41 AM CDT) [facility] VANCOMYCIN, TROUGH 9.7(L) 10.0 - 17.0 ug/mL 07/30/2024 12:26 PM CDT [facility] Blood Venipuncture / Unknown 07/30/2024 11:41 AM CDT 07/30/2024 11:54 AM CDT us Jennifer Sanchez MD CHEMISTRY ORDERABLES Final Resu lt Performing Organization Address [facility]/ZIP Co de Phone Number [facility] CLIA # [id number] [address] [address] * PHOSPHORUS (07/29/2024 6:04 AM CDT) [facility] PHOSPHORUS 2.7 2.5 - 4.5 mg/dL 07/29/2024 6:50 AM CDT [facility] Blood Venipuncture / Unknown 07/29/2024 6:04 AM CDT 07/29/2024 6:08 AM CDT us Efraín Dey DO CHEMISTRY ORDERABLES Final R esult [facility] CLIA # [id number] [address] [address] [place] [address] * (ABNORMAL) HEMOGLOBIN A1C (07/28/2024 9:29 PM CDT) [facility] HEMOGLOBIN A1C 8.9(H) <=5.6 % 07/30/2024 8:43 AM CDT [facility] EST. AVG GLUCOSE, A1C 209 mg/dL 07/30/2024 8:43 AM CDT [facility] Blood Venipuncture / Unknown 07/28/2024 9:29 PM CDT 07/28/2024 9:50 PM CDT Narrative [facility] - 07/30/2024 8:43 AM CDT HGB A1C INTERPRETATION NORMAL: <5.7% PRE-DIABETES: 5.7 - 6.4% DIABETES: 6.5% OR GREATER us Efraín Dey DO CHEMISTRY ORDERABLES Final R esult Performing Organization Address City/[facility]/ZIP Co de Phone Number [facility] CLIA # [id number] [address] [place], [place] [address] * EXTRA TUBE (SST/GOLD) (07/28/2024 3:47 PM CDT) Blood Venipuncture / Unknown 07/28/2024 3:47 PM CDT 07/28/2024 3:56 PM CDT us Aki Briceno DO CHEMISTRY ORDERABLES Final Re sult Performing Organization Address [facility] Co de Phone Number [facility] CLIA # [id number] [address] [place], [place] [address] * PNEUMONIA PATHOGEN PCR PANEL (07/23/2024 6:15 AM CDT) [facility] Pneumonia Pathogen PCR Panel NOT DETECTED No nucleic acids detected. 07/23/2024 1:18 PM CDT [facility] Sputum COUGHED SPUTUM SPECIMEN / Unknown Collection / Unknown 07/23/2024 6:15 AM CDT 07/23/2024 6:15 AM CDT Narrative [facility] - 07/23/2024 1:18 PM CDT NOTE: Per the power transmission engineer, this current lot of reagent may be insensitive for the full detection of adenoviruses. If adenovirus is within the differential diagnosis, the specimen may be submitted to a reference laboratory for further testing. If desired, order [id number] Lab Test, stating Adenovirus by PCR testing in the ordering comment and notify the Microbiology lab at [phone]. A negative result does not exclude the [...] MICROBIOLOGY - GENERAL ORDERABLE S Final Result [facility] # [id number] [address] [place] [address] * SPUTUM CULTURE WITH GRAM STAIN (07/23/2024 6:15 AM CDT) CULTURE No pathogens isolated. Normal respiratory kota present. 07/25/2024 7:06 AM CDT [facility] GRAM STAIN Smear contains </=10 squamous epithelial cells per low power field 07/25/2024 7:06 AM CDT [facility] GRAM STAIN <25 PMN WBC/LPF 7:06 AM CDT [facility] GRAM STAIN Mixed kota with no predominate morphology 07/25/2024 7:06 AM CDT [facility] Sputum COUGHED SPUTUM SPECIMEN / Unknown Collection / Unknown 07/23/2024 6:15 AM CDT 07/23/2024 6:15 AM CDT Yasmeen Lovett MD MICROBIOLOGY - GENERAL ORDERABLE S Final Result [facility] CLIA # [id number] [address] [address] [address] [facility] [address] * Critical Care (07/21/2024 1:16 PM CDT) [...] see operative report for details. Tereso Gil [employer]io DIAGNOSTIC IMAGING ORDERABLES Fi nal Result * Airway (07/20/2024 6:20 PM CDT) Narrative Nancy Stephen CRNA - 07/20/2024 6:20 PM CDT Nancy Stephen CRNA 07/20/2024 6:20 PM Airway Date/Time: 07/20/2024 6:20 PM Location: OR Plan: elective intubation Patient Identity Confirmed by: Verbally with patient Airway: not difficult Staffing Performed: Anesthesiologist (/) and MALE INFERTILITY SPECIALIST/CAA Authorized by: Aki Garcia MD Performed by: [...] is calcaneal enthesopathy. Procedure Note Meir Chawla, - 07/15/2024 Exam: XR FOOT 3+ VW [...] of an acute osseous abnormality. Tereso Gil [facility] DIAGNOSTIC IMAGING ORDERABLES Fi nal Result * MRSA PCR RAPID SCREEN (07/14/2024 3:44 PM CDT) Pathologist [facility] MRSA PCR RESULT MRSA not detected MRSA not detected 07/14/2024 5:12 PM CDT [facility] [employer] [facility] Surveillance ANTERIOR NARES SWAB / Unknown Collection / Unknown 07/14/2024 3:44 PM CDT 07/14/2024 3:53 PM CDT Narrative [facility] [employer] [facility] - 07/14/2024 5:12 PM CDT This assay is used to detect Methicillin-Resistant S. aureus (MRSA) colonization of the nares. PLEASE NOTE: This test has not been approved to monitor effectiveness of MRSA decolonization. Residual DNA may temporarily be present after successful decolonization. This test was performed using an FDA approved screening methodology. Nba Nguyen MD MICROBIOLOGY - GENERAL O RDERABLES Final Result [facility] [employer] [facility] CLIA # [id number] [address] [facility] [place] [address] * XR TIBIA AND FIBULA 2 VW [...] IMPRESSION: No acute osseous abnormality is noted. us Abel Singletary MD DIAGNOSTIC IMAGING ORDERABLES Final Result * US VENOUS DOPPLER LEG RIGHT (07/14/2024 9:53 AM CDT) Only the most recent of2 resultswithin the time period is included. Anatomical Region Laterality Modality Lower Extremity Ultrasound 07/14/2024 9:47 AM CDT Narrative 07/15/2024 9:45 AM CDT [facility] Noninvasive Vascular Laboratory [address] [place] [address] Noninvasive Vascular Lab Venous Exam Unilateral Lower Extremity Duplex Patient: Le Diaz Study ID: US VENOUS DOPPLE Gender: Kingsley : 1965 Age: 59 Room: Height: 165.1cm Weight: 95.3kg BSA: 2.13m^2 Pt status: Emergency Study Date: 07/14/2024 Study Time: 09:47:06 AM BSA: 2.13m^2 Ordering: Abel Singletary Interpreting:Prince Luana Steeping Press Operator: Kofi Leon Indications: Extremity Edema. Summary Impression: [...] Patent; Normal phasicity; spontaneous; compressible; normal augmentation [facility] Vascular [facility] is accredited with the Intersocietal Commission for the Accreditation of Vascular Laboratories (ICAVL) Prepared and Electronically Authenticated Prince Luana Confirmed 07/15/2024 09:45 Procedure Note Prince Craft MD - 07/15/2024 [facility] Noninvasive Vascular Laboratory [address] [place] [address] Noninvasive Vascular Lab Venous Exam Unilateral Lower Extremity Duplex Patient: Le Diaz Study ID: US VENOUS DOPPLE Gender: F : 1965 Age: 59 Room: Height: 165.1cm Weight: 95.3kg BSA: 2.13m^2 Pt status: Emergency Study Date: 07/14/2024 Study Time: 09:47:06 AM BSA: 2.13m^2 Ordering: Abel Singletary Interpreting:Prince Luana Steeping Press Operator: Kofi Leon Indications: Extremity Edema. Summary Impression: [...] femoral Patent; Normal phasicity; spontaneous;compressible; normal augmentation [facility] is accredited with theIntersocietal Commission for the Accreditation of Vascular Laboratories (ICAVL) Prepared and Electronically Authenticated Prince Luana Confirmed 07/15/2024 09:45 Abel Singletary MD US ORDERABLES Final Result * (ABNORMAL) SEDIMENTATION RATE (07/14/2024 8:51 AM CDT) Only the most recent of2 resultswithin the time period is included. ESR (SEDIMENTATION RATE) 52(H) 0 - 20 mm/Hr 07/14/2024 11:09 AM CDT [facility] Blood Venipuncture / Unknown 07/14/2024 8:51 AM CDT 07/14/2024 8:56 AM CDT Abel Singletary MD HEMATOLOGY ORDERABLES Final Re sult [facility] CLIA # [id number] [address] [place] [address] * (ABNORMAL) C-REACTIVE PROTEIN (07/14/2024 8:51 AM CDT) Only the most recent of2 resultswithin the time period is included. CRP 43.4(H) 0.0 - 5.0 mg/L 07/14/2024 11:11 AM CDT [facility] Blood Venipuncture / Unknown 07/14/2024 8:51 AM CDT 07/14/2024 8:56 AM CDT us Abel Singletary MD CHEMISTRY ORDERABLES Final Res ult [facility] CLIA # [id number] [address] [address] * ECHOCARDIOGRAM W/ CONTRAST AGENT (07/06/2024 9:15 AM CDT) Pathologist [facility] EJECTION FRACTION 50 INTERFACE SYSTEM 07/06/2024 8:26 AM CDT Narrative INTERFACE SYSTEM - 07/06/2024 3:59 PM CDT [facility] Echocardiography Laboratory [address] [place] [address] Transthoracic Echocardiography Patient: Le Diaz Study ID: ECHO COMPLETE - Gender: F : 1965 Age: 58 Room: [facility] Study Date: 07/06/2024 Pt Status: Inpatient Study Time: 08:26:26 AM [facility] #: [id number] Ordering:Raúl Rod Steeping Press Operator: Brenda Almanza Indications and History: Check wall [...] (H) robbie values outside specified reference range. [facility] are accredited with the [facility] Accreditation Commission - Echocardiography. Prepared and Electronically Authenticated Raúl Rod Confirmed 07/06/2024 15:59 Procedure Note Raúl Rod MD - 07/06/2024 [facility] Echocardiography Laboratory [address] [place] [address] Transthoracic Echocardiography Patient: Le Diaz Study ID: ECHOCOMPLETRoman - Gender: F : 1965 Age: 58 Room: [facility] Study Date: 07/06/2024 Pt Status: Inpatient Study Time: 08:26:26 AM [facility] #: [id number] Ordering:Raúl Rod Steeping Press Operator: Brenda Almanza Indications and History: Check wall [...] (H) robbie values outside specified reference range. [facility] are accredited with theBanner Del E Webb Medical Centersocietal Accreditation Commission - Echocardiography. Prepared and Electronically Authenticated Raúl Rod Confirmed 07/06/2024 15:59 us Raúl Rod MD US ORDERABLES Final Result Performing Organization Address City/State/[facility] Co de Phone Number INTERFACE SYSTEM [...] AM CDT Narrative 07/04/2024 9:25 AM CDT [facility] Noninvasive Vascular Laboratory [address] [place] [address] Noninvasive Vascular Lab Venous Exam Unilateral Lower Extremity Duplex Patient: Le Diaz Study ID: US VENOUS DOPPLE Gender: F : 1965 Age: 58 Room: [facility] Height: 162.6cm Weight: 95.4kg BSA: 2.12m^2 Pt status: Inpatient Study Date: 07/01/2024 Study Time: 07:03:35 AM BSA: 2.12m^2 Ordering: Landon Blankenship Interpreting:Danny Lancaster Steeping Press Operator: Yoly Fair RVT Indications: R/o dvt. Summary [...] Patent; Normal phasicity; spontaneous; compressible; normal augmentation [facility] V[facility] is accredited with the Intersocietal Commission for the Accreditation of Vascular Laboratories (ICAVL) Prepared and Electronically Authenticated Danny Lancaster Confirmed 07/04/2024 09:25 Procedure Note Danny Lancaster MD - 07/04/2024 [facility] Noninvasive Vascular Laboratory [address] [place] [address] Noninvasive Vascular Lab Venous Exam Unilateral Lower Extremity Duplex Patient: Le Diaz Study ID: US VENOUS DOPPLE Gender: Kingsley : 1965 Age: 58 Room: [facility] Height: 162.6cm Weight: 95.4kg BSA: 2.12m^2 Pt status: Inpatient Study Date: 07/01/2024 Study Time: 07:03:35 AM BSA: 2.12m^2 Ordering: Landon Blankenship Interpreting:Danny Lancaster Steeping Press Operator: Yoly E McHaffie RVT Indications: R/o dvt. Summary Impression: 1. [...] saphenous Patent; Normal phasicity; spontaneous;compressible; normal augmentation [facility] is accredited with theIntersocinovant health / nhrmc Commission for the Accreditation of Vascular Laboratories [...] Infection / cystitis is also a consideration. us Landon Blankenship MD CT ORDERABLES Jana [...] <10.10 <10.10 mg/dL 06/30/2024 9:10 PM CDT [facility] [employer] [facility] ETHANOL % <0.01 <=0.01 %w/v 06/30/2024 9:10 PM CDT [facility] Blood Venipuncture / Unknown 06/30/2024 7:59 PM CDT 06/30/2024 8:12 PM CDT Aki Booth DO CHEMISTRY ORDERABLES Fi nal Result [facility] # [id number] [address] [address] [place] [address] * Critical Care (06/30/2024 7:02 PM CDT) Narrative Aki Booth, - 06/30/2024 7:02 PM CDT Aki Booth DO 07/01/2024 12:14 AM Critical Care Performed by: Aki Booth DO Authorized by: Aki Booth DO Critical care provider statement: Critical care time was exclusive of: Separately billable procedures and treating other patients and teaching time Critical care was necessary to treat or prevent imminent or life-threatening deterioration of the following conditions: Cardiac failure and AGRICULTURAL PRODUCTION ENGINEER failure or compromise (Irregular heart rate, pneumonia, [...] * (ABNORMAL) LIPID PANEL (02/19/2024 5:29 AM MEDICAL RESEARCH ASSOCIATE) [facility] Signature CHOLESTEROL 188 <200 mg/dL 02/19/2024 10:25 AM MEDICAL RESEARCH ASSOCIATE [facility] TRIGLYCERIDE 104 <150 mg/dL 02/19/2024 10:25 AM MEDICAL RESEARCH ASSOCIATE [facility] HDL 36(L) 40 - 59 mg/dL 02/19/2024 10:25 AM [facility] LDL CALCULATED 131(H) <100 mg/dL 02/19/2024 10:25 AM [facility] NON-HDL CHOLESTEROL 152(H) <130 mg/dL 02/19/2024 10:25 AM MEDICAL RESEARCH ASSOCIATE [facility] Blood Venipuncture / Unknown 02/19/2024 5:29 AM MEDICAL RESEARCH ASSOCIATE 02/19/2024 5:34 AM MEDICAL RESEARCH ASSOCIATE Narrative [facility] - 02/19/2024 10:25 AM MEDICAL RESEARCH ASSOCIATE TOTAL CHOLESTEROL mg/dL Desirable <200 Borderline high [...] Artis MD CHEMISTRY ORDERABLES Final R esult [facility] CLIA # [id number] [address] [place] [address] * MICROALBUMIN/CREATININE RATIO, RANDOM UR (02/26/2023 3:01 PM MEDICAL RESEARCH ASSOCIATE) Creatinine, Urine 199 20 - 275 mg/dL [...] category. FASTING:UNKNOWN FASTING: UNKNOWN Test Performed at: [facility] [address] [place] [address] Emily Dumont MD Urine URINE SPECIMEN OBTAINED BY CLEAN CATCH PROCEDURE / Unknown 02/26/2023 3:01 PM MEDICAL RESEARCH ASSOCIATE 02/26/2023 3:02 PM MEDICAL RESEARCH ASSOCIATE Ryann Burk MD URINE ORDERABLES Final Result [facility] [phone] [address] [place] [address] * CERV/VAG CYTO SCREEN PAP W/HPV (01/06/2023 12:00 AM CDT) CLINICAL INFORMATION [employer] Comment:None given LAST MENSTRUAL PERIOD [facility] [employer] [place] Comment:NONE GIVEN PREV PAP: [facility] [place] Comment:NONE GIVEN PREV BX: [facility] [place] Comment:NONE GIVEN SOURCE [employer] Comment:ENDOCERVIX ADEQUACY: [facility] Comment: Satisfactory for evaluation. Endocervical/transformation zone component present. Age and/or menstrual status not provided PAP INTERP [facility] [place] Comment: Cytology Results: Negative for intraepithelial lesion or malignancy. COMMENT (PAP TEST) [employer] [facility] Comment: This Pap test has been evaluated with computer assisted technology. CUFF TURNER: Irving est [employer] [facility] [place] Comment: DELANO SUH(ASCP) CT screening location: [place] [address] [place] [address] EXPLANATORY NOTE [employer] Comment: EXPLANATORY NOTE: The Pap is a [...] information. HPV E6/E7 Not Detected Not Detected [facility] Comment: Methodology: Motor Block Mechanic-Mediated Amplification This assay detects E6/E7 viral messenger RNA (mRNA) from 14 high-risk HPV types (16,18,31,33,35,39,45,51,52,56,58,59,66,68). Cervical sources are required for HPV testing. If a vaginal source from a patient who has had a total hysterectomy with removal of cervix was submitted, please contact the testing laboratory for alternative testing options. For additional information, please refer to http://education.Shmoop/faq/BUO266y0 (This link if provided for information/ educational purposes only.) Test Performed at: [facility] [address] [place] [address] Emily TRAN Genital SWAB OF ENDOCERVIX / Unknown 01/06/2023 01/08/2023 10:07 AM CDT us Ryann Burk MD PATHOLOGY/CYTOLOGY ORDERABLES [facility] Result [facility] [phone] [facility] [address] [place] [address] * MAMMO DIAGNOSTIC UNI RIGHT W OR [...] follow-up beginning with ultrasound should be undertaken. MIRNADA/pierre Kylie Javed MD MAMMO ORDERABLES Final Res ult from Last 3 Months or Most Recently Relevant to Health Maintenance Additional Health Concerns Active Problems Noted Date Diagnosed Date Heart Failure Problem 05/12/2024 [place] * Guarantor: LE DIAZ Account Type Relation to Patient Date of Phone Billing Address Personal/Family [address] [id number] RX INFOCROSSING Medicaid RX [employer] (INTERNAL) [facility] [place] [address] Advance Directives For more information, please contact: [phone] Documents on File Type Date Recorded Patient Photo Checker And Assembler Expl anation Advance Directive Living Will 07/23/2023 [...] 9:59 PM 08/16/2024 3:32 PM Care Teams Brake Machine Operator Relationship Specialty Start Date End Date Delta Wade MD [address] [address] PCP - General Family Practice 03/25/24
--- OUTSIDE RECORDS SUMMARY | 2024-09-29 22:27 | XMS_ITS | CCD ---
Author Name Interface, [email or web address] lity Address [address] [place] [address] [facility] Address [address] [place] [address] Care Team Providers Care Production Ski Repairer Name Role Phone Anika VALLADARES, Allen Unavailable [...]
--- OUTSIDE RECORDS SUMMARY | 2024-09-29 22:27 | XMS_ITS | Encounter Summary ---
Author Organization [facility] Address [address] Gonzalez: Epic Prelude ADT [place] [address] Care Team Providers Care Platform Software Engineer Name Role Phone Delta Wade MD Primary Care Provider [phone] Encounter Details Date Type Department Care Team (Latest Contact Info) Description 09/22/2024 Travel Social History Tobacco Use Types Packs/Day Years [...] How often do you attend chur or christianity services? 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 Gender Identity Not on file Sexual Orientation Not on file documented as of this encounter Plan of Treatment Upcoming Encounters Date Type Department Care Team (Late st Contact Info) Description 10/06/2024 4:00 PM CDT Office Visit [facility] Pulmonology [address] [place] [address] Cristian Metcalf, GRINDER NEEDLE TIP [address] [place] [address] 10/11/2024 2:30 PM CDT Office Visit [facility] Neurosurgery [address] [place] [address] Jerson Salas, PA [address] [place] [address] documented as of this encounter Goals Goal Patient Goal Type Associated Problems Recent Progress Patient-Stated? Author Heart Failure Goal Care Plan Heart Failure Problem No Latonya Anguiano LPN documented as of this encounter Visit Diagnoses Not on filedocumented in this encounter Additional Health Concerns Active Problems Noted Date Diagnosed Date Heart Failure Problem 05/12/2024 documented as of this encounter Care Teams Platform Software Engineer Relationship Specialty Start Date End Date Delta Wade MD [address] [id number] PCP - General Family Practice 03/25/24 documented as of this encounter
--- OUTSIDE RECORDS SUMMARY | 2024-09-29 22:27 | XMS_ITS | CCD ---
Author Name Interface, [id number] lity Address [address] [facility] [place] [address] [facility] Address [address] [place] [address] Care Team Providers Care Bullet Slugs Inspector Name Role Phone Anika VALLADARES, Allen Unavailable [...]
--- OUTSIDE RECORDS SUMMARY | 2024-09-29 22:27 | XMS_ITS | Encounter Summary ---
Author Organization [facility] Address [address] [place] [address] Care Team Providers Care Radiation Control Health Physicist Name Role Phone Delta Wade MD Primary Care Provider [phone] Encounter Details Date Type Department Care Team (Latest Contact Info) Description 08/04/2024 Results Follow-Up [facility] Emergency Department [address] [place] [address] Ayana Roman RN BLOOD CULTURE, [...] Never 06/13/2019 How often do you attend [facility] or scientologist services? 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 Gender Identity Not on file Sexual Orientation Not on file documented as of this encounter Plan of Treatment Upcoming Encounters Date Type Department Care Team (Late st Contact Info) Description 10/06/2024 4:00 PM CDT Office Visit [facility] Pulmonology [address] [place] [address] Cristian Metcalf FNP [address] [place] [address] 10/11/2024 2:30 PM CDT Office Visit [facility] Neurosurgery [address] [place] [address] Jerson Salas PA [address] [place] [address] documented as of this encounter [...] documented as of this encounter Care Teams Radiation Control Health Physicist Relationship Specialty Start Date End Date Delta Wade MD [address] [address] PCP - General Family Practice 03/25/24 documented as of this encounter
--- OUTSIDE RECORDS SUMMARY | 2024-09-29 22:27 | XMS_ITS | Patient Health Record ---
Author Organization [facility] Address [address] [place] [address] Care Team Providers Care Ese Teacher Name Role Phone Delta Wade Primary Care Provider Unavailabl Jose Cruz Callejas Unavailable [phone] Yakov Sanon Unavailable [phone] Marcia Perez Unavailable [phone] Gregorio Montes Unavailable [phone] Masoud Bello Unavailable [phone] Acacia Gaines Unavailable [phone] Hannah Rai Unavailable [phone] Allergies Allergen (clinical drug ingredient) Drug/Non Drug Allergy documented on EMR Reaction Allergy Type Onset Date Status Compazine Unknown Drug Allergy Active ketorolac Ketorolac Unknown Drug Allergy Active Results Component Value Reference Range Notes Echo Complete EC-[id number] Reviewed date:11/30/2023 12:41:13 PM Interpretation: Performing Lab: Notes/Report: [id number]&[email or web address]=iSite zzzHeart Cath Lt poss PTCA Reviewed date:11/30/2023 12:41:13 PM Interpretation: Performing Lab: Notes/Report: [email or web address]=[id number]&org=iSite Schedule Confirmation Reviewed date:11/30/2023 12:40:58 PM Interpretation: Performing Lab: Notes/Report: Heart Cath Lt poss PTCA Echo Complete EC-[id number] Reviewed date:11/30/2023 12:41:13 PM Interpretation: Performing Lab: [...] Nimesh Ochoa Performed By: Alexandra Herrera RCS zzzHeart Cath Lt poss PTCA Reviewed date:11/30/2023 12:40:58 PM Interpretation: Performing Lab: Notes/Report: See Below For Report This report was dictated outside of the [employer] system. 3523 @ 0100 Read See Below For Report NM HB Scan w/ejection fracti on-90609 Reviewed date:01/05/2024 04:36:45 PM Interpretation: Performing Lab: Notes/Report: [id number]=iSite NM HB Scan w/ejection fracti on-58351 Reviewed date:01/05/2024 04:37:06 PM Interpretation: Performing Lab: Notes/Report: See Below For Report NM HB Scan w/ejection fraction 2407 @ 2313 Read See Below For Report Prothrombin Time 15933 Reviewed date:05/16/2024 05:08:19 PM Interpretation: Performing Lab: Notes/Report: trop 2nd@ 205 3510 @ 0021 3510 @ 0021 ProTime 10.8 9.1-11.9 SEC Normal Range: 9.1-11.9 INR 1.02 .90-1.20 Therapeutic Range: 2.0-3.0 Therapaeutic Range for heart valve replacement: 2.5-3.50 Partial Thromboplastin Time 43602 Reviewed date:05/16/2024 05:08:19 PM Interpretation: Performing Lab: Notes/Report: trop 2nd@ 205 3510 @ 0021 3510 @ 0021 PTT 27.1 22.6-31.8 SEC Therapeutic Range: 60-100. Critical Value Starting at > 100. Schedule Confirmation Reviewed date:05/16/2024 05:08:19 PM Interpretation: Performing Lab: Notes/Report: Heart Cath Lt poss PTCA Schedule Confirmation Reviewed date:05/16/2024 05:08:19 PM Interpretation: Performing Lab: Notes/Report: Heart Cath Lt poss PTCA Schedule Confirmation Reviewed date:07/03/2024 04:23:35 PM Interpretation: [...] This report was dictated outside of the [employer] system. trop 2nd@ 205 3510 @ 0021 Read See Below For Report zzzHeart Cath Lt poss PTCA Reviewed date:05/16/2024 05:08:19 PM Interpretation: Performing Lab: Notes/Report: [email or web address]=[id number]&org=iSite Schedule Confirmation Reviewed date:11/30/2023 12:40:58 PM Interpretation: Performing Lab: Notes/Report: Heart Cath Lt poss PTCA Reason For Referral Reason COPD; 06/07: 1 wk pe r Eula 06/07: Left Message SCHEDULED 06/20 @ 2:10 PM Diagnosis 1 Chronic obstructive pulmonary disease, unspecified (J44.9) Referring Provider First Name ER Referring Provider Last Name [facility] Referring Provider Speciality Emergency Medicine Referred Organization [facility] Referred Provider Jose Cruz Landry Referred Address [address] [place] [address] [address],[place],[address], Referred Provider Specialty Pulmonary Di seases General Notes Joselin Lopez 03:08:20 PM >06/06: Gave Report to PRVDR to reviewJohn Marie 06/07/2024 12:13:32 PM >06/07: wk per John [...] Date Status Comme nts Influenza (whole), CPT 61399 Inactive Unknown 01/04/2024 Administered Social History Tobacco Use: Social History Observation Description Date Details (start date - stop date) Former Smoker NA - NA Tobacco Control (Standard) Question Answer Notes Tobacco use: Former smoker How long has it been since you last smoked? 1-5 years Problems Problem Type SNOMED Code ICD Code Onset Dates Problem Status W/U Status Risk Notes Problem 99447150537784275 Nicotine dependence, cigarettes, in remission (F17.211) Active confirmed Problem Ischemic cardiomyopathy (214143256) Ischemic cardiomyopathy (I25.5) Active confirmed Problem Chronic obstructive pulmonary disease (05566967) Chronic obstructive pulmonary disease, unspecified (J44.9) Active confirmed Problem Gastro-esophageal reflux disease without esophagitis (255643950) Gastro-esophageal reflux disease without esophagitis (K21.9) Active confirmed Problem C-reactive protein abnormal (664767739) Elevated C-reactive protein (CRP) (R79.82) Active confirmed Problem 924058947 Solitary pulmona ry nodule (R91.1) Active confirmed Problem Long-term current use of anticoagulant (820406991) FDC (current) use of anticoagulants (Z79.01) Active confirmed Problem Atherosclerotic heart disease of [place] coronary artery without angina pectoris (555517779245820) Arteriosclerosis of coronary artery (I25.10) Active confirmed Problem H/O heart artery stent (Z95.5) Active confirmed Problem Long-term current use of anticoagulant (332333882) Anticoagulated (Z79.01) Active confirmed Problem Angina (263754755) Atheroscleros is of [place] coronary artery of [place] heart with angina pectoris (I25.119) Active confirmed Problem Acute non-ST segment elevation myocardial infarction (366802201) Non-ST elevated myocardial infarction (I21.4) Active confirmed Problem History of pulmonary embolus (199471932) Hx of pulmonary embolus (Z86.711) Active confirmed Problem Coronary stent patent (356805261) Coronary stent patent (Z95.5) Active confirmed Problem 193349701 Chronic hypoxic respiratory failure (J96.11) Active confirmed [...] N/A Encounters Encounter Location Date Provider Diagnosis [facility] [address] [place] [address] 10/01/2023 Yakov Sanon Acute pain of left shoulder M25.512 [facility] [address] [place] [address] 06/20/2024 Jose Cruz Landry Solitary pulmonary nodule R91.1 ; Chronic hypoxic respiratory failure J96.11 ; Nicotine dependence, cigarettes, in remission F17.211 and Shortness of breath R06.02 [facility] [address] [place] [address] 02/17/2024 Gregorio Montes [facility] [place] [address] [place] [address] 06/06/2024 Masoud Bello Other fracture of unspecified lumbar vertebra, initial encounter for closed fracture S32.008A [facility] [address] [place] [address] [place] [address] 06/30/2024 Jose Cruz Landry Assessments Encounter Date Diagnosis (ICD Code) Assessment [...] remission (ICD-10 - F17.211) Patient smoked a ibtw-yvb-exp for 45 years. She has been abstinent for a year now. 06/20/2024 Shortness of breath (ICD-10 - R06.02) Obtain PFT. 07/19/2024 Other Jolene Leon am scribing for, and in the presence of Dr. Jose Cruz Landry. I, Dr. Jose Cruz Landry, personally performed the services described in this documentation, as scribed by Jolene Toussaint in my presence, and it is both accurate and complete. 06/20/2024 Other Jolene Leon am scribing for, and in the presence of Dr. Jose Cruz Landry. I, Dr. Jose Cruz Landry, personally performed the services described in this documentation, as scribed by Jolene Toussaint in my presence, and it is both accurate and complete. Plan Of Treatment Pending Test Test Name Order Date Lumbosacral Spine AP/Lat-11871 5 PFT with FRC: (NO TGV) 06/20/2024 CT Chest ION Endoluminal-50881 5 Insurance Providers Payer Name Payer Address Payer Phone Subscriber Number Group Number Insured Name Patient Relationship to Insured Coverage Start Date Coverage End Date [place] Medicaid [address] [place] [address] [id number] GIANFRANCO DIAZ Self - patient is the [...]
--- NOTE | 2024-09-29 22:30 | ECG_ITS ---
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 Measurements Intervals [place] Rate: 96 P: 250 CA: 120 QRS: 47 QRSD: 86 T: 39 QT: 345 QTc: 437 Interpretive Statements regular supraventricular rhythm Further interpretation is not possible Heavy baseline artifacts; Need to repeat the study. Electronically Signed On 09-30-2024 15:19:39 CDT by Ivis Drake M.D. [email or web address]
== END 2024-09-30 00:17 | disposition left against medical advice (07) ==
PROVIDERS: Emergency Provider Family Medicine; PCP Family Medicine
DX: Z01.89 Encounter for other specified special examinations (principal); Z53.21 Procedure and treatment not carried out due to patient leaving prior to being seen by health care provider
CPT/HCPCS: 93005

== ENCOUNTER 2024-09-30 01:01 | Emergency (ER) | payer MEDICAID, SELFPAY ==
--- OUTSIDE RECORDS SUMMARY | 2020-06-27 10:30 | XMS_ITS | Continuity of Care Document ---
Author Organization [facility] Address [address] [place] [address] Phone Care Team Providers Care Doll Wigs Hackler Name Role Phone Unavailable Unavailable Unavailable Allergies, [...] - Active Procedures Procedure Date OFFICE/OUTPATIENT VISIT, [facility] Advance Directives Directive Yes / No Effective Date File Name No Information Encounters Encounter Description Practice Location Reason(s) For Visit Diagnoses Date Provider Providers Copied on Encounter OFFICE/OUTPA TIENT VISIT, [facility], [address], [place], [place], [address] , [place] tel: [phone] [facility] follow up (chief complaint) COPDEssential (primary) hypertensionAthero sclerotic cardiac diseaseTobacco use disorder, moderateCancer of vagina No Information Family History Family Member Type Diagnosis Age At Onset Mother Problem malignant neopla sm of breast in first degree relative Mother Problem coronary arteriosclerosis Sister Problem stroke Father Problem coronary arteriosclerosis Mother Problem hypertension Payers Payer name Insurance type Covered constitution party ID Authoriza dioni(s) Medicaid - Medical [id number] Social History Type Description Quantity Date Captured [...] her vagina and is being managed at [facility]. Patient has HTN, hip pain, and COPD.Patient [...] her vagina and is being managed at [facility]. Patient has HTN, hip pain, and COPD.Patient [...]
--- OUTSIDE RECORDS SUMMARY | 2024-07-19 03:00 | XMS_ITS ---
Author Organization [facility] Address [address] [facility] [place] [address] Care Team Providers Care Design Engineer Name Role Phone Delta Wade Primary Care Provider Jose Cruz Harvey [phone] REASON FOR VISIT [phone] Encounters Encounter Location Date Provider Diagnosis [facility] [address] [place] [address] [place] [address] 07/19/2024 Jose Cruz Forde Plan Of Treatment No Information Progress Notes * GIANFRANCO DIAZDOB: 6 (59 yo F)Acc No.[id number]:07/19/2024 Pulmonary Function Test Patient: Jahaira GIANFRANCO HANNA Provider: Abdirahman Forde MD :1965 A ge:59 Y S ex:Female Date:07/19/2024 Address:[address] [place], [place] [phone] Pcp:Delta Wade Subjective: * Chief Complaints: * 1 . [id number]. * Medical History: Objective: * Vitals: Assessment: Plan: * Treatment: * Billing Information: * Visit Code: * Procedure Codes: * Electronic signature of Natasha Forde MD on 09/30/2024 at 01:09 AM CDT Sign off status: Pending * Provider: Abdirahman Forde MD Date: 07/19/2024 Generated for Sydnii ng/Fatereg/eTransmitting on: 09/30/2024 01:09 AM CDT
--- OUTSIDE RECORDS SUMMARY | 2024-07-19 05:10 | XMS_ITS ---
Author Organization [facility] Address [address] [facility] [place] [address] Care Team Providers Care Benefits Clerk Name Role Phone Delta Wade Primary Care Provider Jose Cruz Harvey Unavailable [phone] REASON FOR VISIT abnormal chest CT Medications Medication SIG (Take, Route, Frequency, Duration) Notes Start Date End Date Status rOPINIRole HCl 0.5 MG TAKE 1 TABLET BY M OUTH EVERY DAY AT BEDTIME Oral for 30 Days Active oxyCODONE-Acetaminophen 5-325 MG TAKE 1 TABLET BY MOUTH EVERY 6 HOURS NEEDED FOR 30 DAYS Oral for 30 Days Active Promethazine-DM 6.25-15 MG/5ML TAKE 5 ML BY MOUTH EVERY 6 HOURS NEEDED FOR COUGH Oral for 5 Days Active Insulin Lispro (1 Unit Dial) 100 UNIT/ML INJECT 12 UNITS 3 TIMES A DAY BY SUBCUTANEOUS ROUTE BEFORE MEAL(S). Subcutaneous for 41 Days Active OLANZapine 10 MG TAKE 1 TABLET BY SHIRLEY TH EVERY DAY IN THE EVENING FOR 30 DAYS Oral for 30 Days Active HYDROcodone-Acetaminoph en 5-325 MG TAKE 1 TABLET BY MOUTH EVERY 6 HOURS NEEDED FOR 7 DAYS Oral for 30 Days Not-Taking Sertraline HCl 50 MG TAKE 1 TABLET BY MO UTH EVERY DAY Oral for 30 Days Active Warfarin Sodium 10 MG TAKE 1 TABLET BY M OUTH EVERY DAY Oral for 30 Days Active Encounters Encounter Location Date Provider Diagnosis [facility] [address] [place] [address] [place] [address] 07/19/2024 Jose Cruz Forde Solitary pulmonary nodule [...] remission (ICD-10 - 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 She has been abstinent [...] cigaret taiwo, in remission Patient smoked a gtdw-zqs-ufj for 45 yea rs. She has been abstinent for a year now. Shortness of breath Obtain PFT. Progress Notes * DIAZ, GIANFRANCO PageDOB: 6 (59 yo F)Acc No.[id number]:07/19/2024 Progress Notes Patient: GIANFRANCO GARCIA Provider: Abdirahman Forde MD :1965 A ge:59 Y S ex:Female Date:07/19/2024 Address:[address] [place], [place] [phone] Pcp:Delta Wade Subjective: * Chief Complaints: * [address] * HPI: Alo buck Note: The patient [...] ION 07/08/24 but was hospitalized twice at [facility] and unable to complete her pre-surgical testing. ION rescheduled for 07/22/24 -ION CT. * ROS: Juliette cain of systems of chart has been reviewed and scanned in by me. * Medical History: * Medications: T aking Insulin Lispro (1 Unit Dial) 100 UNIT/ML Solution Pen-injector INJECT 12 UNITS 3 TIMES A DAY BY SUBCUTANEOUS ROUTE BEFORE MEAL(S). Subcutaneous , Taking OLANZapine 10 MG Tablet TAKE 1 TABLET BY MOUTH EVERY DAY IN THE EVENING FOR 30 DAYS Oral , Taking oxyCODONE-Acetaminophen 5-325 MG Tablet TAKE 1 TABLET BY MOUTH EVERY 6 HOURS NEEDED FOR 30 DAYS Oral , Taking Promethazine-DM 6.25-15 MG/5ML Syrup TAKE 5 ML BY MOUTH EVERY 6 HOURS NEEDED FOR COUGH Oral , Taking rOPINIRole HCl 0.5 MG Tablet TAKE 1 TABLET BY MOUTH EVERY DAY AT BEDTIME Oral , Taking Sertraline HCl 50 MG Tablet TAKE 1 TABLET BY MOUTH EVERY DAY Oral , Taking Warfarin Sodium 10 MG Tablet TAKE 1 TABLET BY MOUTH EVERY DAY Oral , Not-Taking HYDROcodone-Acetaminophen 5-325 MG Tablet TAKE 1 TABLET BY MOUTH EVERY 6 HOURS NEEDED FOR 7 DAYS Oral Objective: * Vitals: * Examination: G eneral Examination: GENERAL APPEARANCE: [...] cigarettes, in remission Notes: Patient smoked a exjb-knh-yxt for 45 years. She has been abstinent for a year now. ? 4. S hortness of breath Notes: Obtain PFT. 5. O thers Clinical Notes:IJolene, am scribing for, and in the presence of Dr. Jose Cruz Forde. I, Dr. Jose Cruz Forde, personally performed the services described in this documentation, as scribed by Jolene Toussaint in my presence, and it is both accurate and complete. * Immunizations: Immunization record has been reviewed and updated. Forms: * Billing Information: * Visit Code: * Procedure Codes: Care Plan Details* * Electronic signature of Natasha Forde MD on 09/30/2024 at 01:08 AM CDT Sign off status: Pending * Provider: Abdirahman Forde MD Date: 0 07/19/2024 Generated for Mani contreras/Moshe/Adrianitting on: 0 09/30/2024 01:08 AM CDT History and Physical Notes * HPI (History [...] ION 07/08/24 but was hospitalized twice at [facility] and unable to complete her pre-surgical [...]
--- OUTSIDE RECORDS SUMMARY | 2024-07-22 05:00 | XMS_ITS ---
Author Organization [facility] Address [address] [place] [address] Care Team Providers Care Stone Planer Name Role Phone Delta Wade Primary Care Provider Jose Cruz Harvey [phone] Encounters Encounter Location Date Provider Diagnosis [facility] [address] [place] [address] [place] [address] 07/22/2024 Jose Cruz Forde Plan Of Treatment No Information Progress Notes * GIANFRANCO DIAZDOB: [birth year] (59 yo F)Acc No.[id number]:07/22/2024 Patient: Jahaira HANNA GIANFRANCO Page Provider: Abdirahman Forde MD :1965 A ge:59 Y S ex:Female Date:07/22/2024 Address:[address] [place], [place] [phone] Pcp:Delta Wade * Billing Information: * Visit Code: * Procedure Codes: * Electronic signature of Natasha Forde MD on 09/30/2024 at 01:09 AM CDT Sign off status: Pending * Provider: Abdirahman Forde MD Date: 07/22/2024 Generated for Sydnii ng/Moshe/eTransmitting on: 09/30/2024 01:09 AM CDT
--- OUTSIDE RECORDS SUMMARY | 2024-09-22 23:44 | XMS_ITS | Encounter Summary ---
Author Organization [facility] Address [address] [place] [address] Care Team Providers Care Patient Services Clerk Name Role Phone Delta Wade MD Primary Care Provider [phone] Reason for Visit * Reason Comments Shortness of Breath Shortness of breath x 3 days; HX: COPD, on 3L NC at baseline, 93% on 3L NC Encounter Details Date Type Department Care Team (Late st Contact Info) Description 09/22/2024 11:44 PM CDT - 09/23/2024 9:48 AM CDT Emergency [facility] Emergency Department [address] [place] [address] Discharge Disposition: Left without being [...] How often do you attend chur or congregational services? More than 4 times per year 06/13/2019 Do you belong to any clubs o r organizations such as taoist groups, unions, fraternal or athletic groups, or [...] who hurts you emotionally and/or physically? No 09/22/2024 Food Insecurity Answer Date Recorded Patient needs follow up regardin 07/13/2024 Transportation Needs Answer Date Record ed Patient needs follow up regardin 07/13/2024 Housing Stability Answer Date Recorded Social/Environmental Concerns No concerns Utility Needs Answer Date Recorded Patient needs follow up regardin 07/13/2024 Comments No Sex and Gender Information Value Date Recorded Sex Assigned at Not on file Legal Sex Female 11:49 PM PSYCHIATRIC THERAPIST Gender Identity Not on file Sexual Orientation Not on file documented as of this encounter Last Filed Vital Signs Vital Sign Reading Time Taken Comments Blood Pressure 140/69 09/22/2024 6:26 PM CDT Pulse - - Temperature 37.3 C (99.1 F) 09/22/2024 6:26 PM CDT Respiratory Rate 22 09/22/2024 6:26 PM CDT Oxygen Saturation 94% 09/22/2024 6:26 PM CDT Inhaled Oxygen Concentration - - Weight 100.7 kg (222 lb) 09/22/2024 6:26 PM CDT Height 162.6 cm (5' 4 ) 09/22/2024 6:26 PM CDT Body Mass Index 38.11 09/22/2024 6:26 PM CDT documented in this encounter Medications at Time of Discharge furosemide (LASIX) 40 mg tablet Take 1 Tablet (40 mg) by mouth daily. 30 Tablet 1 09/16/2024 ipratropium-albut Lisa (DUONEB) 0.5 mg-3 mg(2.5 mg base)/3 mL Solution for Nebulization Take 3 mL by inhalation every 4 hours as needed for Shortness of Breath. 300 mL 1 09/10/2024 Nebulizer & Compressor For Neb Device every 4 hours as needed for Other (See Comment) (shortness of breath). 1 Each 09/10/2024 ranolazine ER (RANEXA) 500 mg Extended Release [...] :Chronic obstructive pulmonary disease, unspecified COPD type ([facility]),Oxygen dependent Face to Face completed within 30 days: yes Length of Need: 99 months By: Nasal Cannula Continuously at 3 L/min. 1 Each 08/27/2023 TechLITE Pen Needle 29 gauge x 1/2 Needle USE directed with Victoza. 12/29/2022 naloxone (NARCAN) 4 mg/spray [place], Non-Aerosol EMERGENCY USE ONLY: Administer 1 spray (4 mg) in one nostril one time. May repeat in alternating nostrils every 2-3 min until responsive or EMS arrives. 2 Each 3 01/06/2023 blood sugar diagnostic StripIndications: Type 2 diabetes mellitus without complication, without long-term current use of insulin ([facility]) Use to test blood glucose up to QID PRN symptoms. 100 Each 11 12/17/2022 OneTouch Delica Plus Lancet 30 gauge USE TO test fasting blood glucose DAILY 11/04/2022 Blood-Glucose Meter KitIndications:Ty pe 2 diabetes mellitus without complication, without long-term current use of insulin ([facility]) Use to test blood glucose up to [...] breakfast for 3 days. 15 Tablet 09/15/2024 ipratropium-albut Lisa (DUONEB) 0.5 mg-3 mg(2.5 mg base)/3 mL Solution for Nebulization Take 3 mL by inhalation every 6 hours as needed for Shortness of Breath. 60 Each 1 08/26/2024 documented as of this encounter ED Notes * Harika Richardson RN - 09/22/2024 9:19 PM CDT [id number] * Tiffanie Childress NP - 09/22/2024 7:05 PM CDT Patient is a 59-year-old female with a history of severe COPD, type 2 diabetes, heart failure with reduced ejection fraction, acute on chronic hypoxic respiratory failure who was just here on September 16and discharged to home the same day she had been dismissed from a 623 admission for COPD exacerbation. She and her both state that she was not any better from the time of discharge. That she continues to be struggling for air and this is the worst that she feels like she has ever been. She states that she gave herself 3 breathing treatments in a row about 3 to 4 hours ago. When I asked her what they did the last time she was in here and she stated that they did not do anything and sent herhome. I told her that I would order a chest x-ray and some lab work and she immediately started saying that she is not can to sit here if we cannot get her right back that she will go to [facility]. I told her I could not do anything about the availability of beds in the back the sickest patients have to go back first but that I will talk to the primary nurse and note this. Vitals: 09/22/24 1826 BP: (!) 140/69 Resp: 22 Temp: 99.1 ??F (37.3 ??C) SpO2: 94% Exam: Constitutional: Alert and oriented Respiratory: Patient has moderate respiratory distress with use of accessory muscles respiratory rate 28-30. She is on O2 and has a 93% pulse ox. Neuro: Alert and oriented X3. Psych: Cooperative. Normal mood and affect. Pain Scale 5/10 A medical screening exam was initiated in [...] their stay. I advised patient to inform front facer nurse of any change in symptoms. The patient's evaluation and anticipated ongoing care plan was discussed in detail with them to make sure theyare aware of what to expect during their stay. . * Radha Lyons RN - 09/22/2024 7:04 PM CDT Pt's son approached triage desk w/ questions regarding wait times x 2. Triage process explained including: that the order of going back is based on acuity and length of stay. This changes with every vital sign and lab obtained and is constantly changing. Patients arriving after them also may go back sooner based entirely on the area of the ER that is available or the worsening condition of the pt. He was encouraged to let us know if patient condition changes so we may appropriately reassess them. Encouraged to voice any further needs or questions. His response was okay. documented in this encounter Plan of Treatment Upcoming Encounters Date Type Department Care Team (Late st Contact Info) Description 10/06/2024 4:00 PM CDT Office Visit [facility] Pulmonology [address] [place] [address] Cristian Metcalf FNP [address] [place] [address] 10/11/2024 2:30 PM CDT Office Visit [facility] Neurosurgery [address] [place] [address] Jerson Salas PA [address] [place] [address] documented as of this encounter Goals Goal Patient Goal Type Associated Problems Recent Progress Patient-Stated? Author Heart Failure Goal Care Plan Heart Failure Problem No Latonya Anguiano LPN documented as of this encounter Visit Diagnoses Not on filedocumented in this encounter Additional Health Concerns Active Problems Noted Date Diagnosed Date Heart Failure Problem 05/12/2024 documented as of this encounter Care Teams Patient Services Clerk Relationship Specialty Start Date End Date Delta Wade MD [address] [address] PCP - General Family Practice 03/25/24 documented as of this encounter
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
--- OUTSIDE RECORDS SUMMARY | 2024-09-30 01:07 | XMS_ITS ---
Author Organization [facility] Address [address] [place] [address] Phone Care Team Providers Care Process Engineering Manager Name Role Phone Delta Wade MD Primary Care Provider [phone] Active Problems Problem Noted Date Diagnosed Date [...] 06/14/2019 H/O vaginal surgery 06/14/2019 Atherosclerosis of [place] ronary artery of [place] without angina pectoris 06/14/2019 Urinary incontinence [...]
--- OUTSIDE RECORDS SUMMARY | 2024-09-30 01:07 | XMS_ITS | Encounter Summary ---
Author Organization [facility] Address [address] [place] [address] Care Team Providers Care It Help Desk Manager Name Role Phone Delta Wade MD Primary Care Provider [phone] Reason for Visit * Reason Comments Hospital Follow Up Encounter Details Date Type Department Care Team (Late st Contact Info) Description 05/13/2024 Telephone [facility] Medicine [place] [address] [place] [address] Kay Lima, [facility] [address] [place] [address] Hospital Follow Up Social History [...] often do you attend chur ch or moravian services? More than 4 times per year 06/13/2019 Do you belong to any clubs o r organizations such as nondenominational groups, unions, fraternal or athletic groups, or [...] on file Legal Sex Female 11:49 PM SETTLEMENT PROCESSOR Gender Identity Not on file Sexual Orientation Not on file documented as of this encounter Miscellaneous Notes * Telephone Encounter - Danyell Rashid - 05/13/2024 12:30 PM SETTLEMENT PROCESSOR Called pt back. Could not leave voicemail. If patient calls back please schedule for hospital follow up appointment for the next opening spot. Can be vv if patient cannot travel to clinic. LEMENT PROCESSOR * Telephone Encounter - Gypsy Gerber - 05/13/2024 12:02 PM CST Copied from [facility] #[id number]. Topic: Reschedule/Cancel Appointment/Late Arrival >> May 13, [...] of hospital discharge? 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 documented in this encounter Plan of Treatment Upcoming Encounters Date Type Department Care Team (Late st Contact Info) Description 10/06/2024 4:00 PM CDT Office Visit [facility] Pulmonology [address] [place] [address] Cristian Metcalf FNP [address] [place] [address] 10/11/2024 2:30 PM CDT Office Visit [facility] Neurosurgery [address] [place] [address] Jerson Salas PA [address] [phone] documented as of this encounter Goals Goal [...] R/O COVID-19 05/13/2024 05/13/2024 05/14/2024 4:15 AM SETTLEMENT PROCESSOR R/O Respiratory 06/30/2024 06/30/2024 06/30/2024 1 0:36 [...] documented as of this encounter Care Teams It Help Desk Manager Relationship Specialty Start Date End Date Delta Wade MD [address] [address] PCP - General Family Practice 03/25/24 documented as of this encounter
--- OUTSIDE RECORDS SUMMARY | 2024-09-30 01:07 | XMS_ITS | Encounter Summary ---
Author Organization [facility] Address [address] [place] [address] Care Team Providers Care Candlemaking Laborer Name Role Phone Delta Wade MD Primary Care Provider [phone] Encounter Details Date Type Department Care Team (Late st Contact Info) Description 06/16/2024 Telephone [facility] Ophthalmology [address] [place] [address] Eduardo Craven MD [address] [place] [address] Social History Tobacco Use Types Packs/Day [...] How often do you attend chur or scientologist services? 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 Gender Identity Not on file Sexual Orientation [...] Description 10/06/2024 4:00 PM CDT Office Visit [facility] Pulmonology [address] [place] [address] Cristian Metcalf FNP [address] [place] [address] 10/11/2024 2:30 PM CDT Office Visit [facility] Neurosurgery [address] [place] [address] Jerson Salas, ANDERS [address] [place] [address] documented as of this encounter [...] documented as of this encounter Care Teams Candlemaking Laborer Relationship Specialty Start Date End Date Delta Wade MD [address] [place] [address] PCP - General Family Practice 03/25/24 documented as of this encounter
--- OUTSIDE RECORDS SUMMARY | 2024-09-30 01:09 | XMS_ITS | CCD ---
Author Name Interface, [email or web address] Address [address] [place] [address] [facility] Address [address] [place] [address] Care Team Providers Care Instructional Developer Name Role Phone Anika VALLADARES, Allen Unavailable [...]
--- OUTSIDE RECORDS SUMMARY | 2024-09-30 01:09 | XMS_ITS | Clinical Summary ---
Author Organization [facility] Address [address] [place] [address] Phone Care Team Providers Care Dentist Name Role Phone Delta Wade MD Primary Care Provider [phone] Allergies Active Allergy Reactions Criticality Noted Date [...] complication, without long-term current use of insulin ([facility]) Use to test blood glucose up to TID PRN symptoms. 1 Each 12/03/19 23 Active blood sugar diagnostic StripIndication s:Type 2 diabetes mellitus without complication, without long-term current use of insulin ([facility]) Use to test blood glucose up to QID PRN symptoms. 100 Each 11 12/18/19 Active TechLITE Pen Needle 29 gauge x 1/2 Needle USE directed with Victoza. 12/30/19 Active naloxone (NARCAN) 4 mg/spray [place], Non-Aerosol EMERGENCY USE ONLY: Administer 1 spray [...] 06/14/2019 H/O vaginal surgery 06/14/2019 Atherosclerosis of [place] co ronary artery of [place] heart without angina pectoris 06/14/2019 Urinary incontinence [...] PM CDT - 09/28/2024 5:54 PM CDT [facility] Emergency Department [address] [place] [address] Austin Robertson MD [place], Robert C, MD Drug-seeking behavior (Primary Dx) Discharge Disposition: Left Against Medical Advice 09/22/2024 11:44 PM CDT - 09/23/2024 9:48 AM CDT [facility] Emergency Department [address] [place] [address] Discharge Disposition: Left without being seen 09/22/2024 Travel 09/16/2024 11:40 PM CDT - 09/16/2024 11:41 PM CDT [facility] Emergency Department [address] [place] [phone] Discharge Disposition: Left without being seen 09/12/2024 9:13 PM CDT - 09/15/2024 12:26 PM CDT Hospital Encounter [facility] 4B Cardiac [address] [place] [address] Robbie Yen, DO Baig, MD Esperanza Soto, MD La Perez, Michael Mathew MD COPD exacerbation ([facility]) Discharge Disposition: Home or Self Care 09/10/2024 8:59 PM CDT - 09/11/2024 12:42 AM CDT [facility] Emergency Department [address] [place] [phone] Layton Barrow MD Chronic hypoxemic respiratory failure ([facility]/HCC) (Primary Dx); Type 2 diabetes mellitus with hyperglycemia, with long-term current use of insulin ([facility]); Pulmonary emphysema, unspecified emphysema type ([facility]/HCC) Discharge Disposition: Home or Self Care 09/10/2024 12:46 PM CDT - 09/10/2024 11:59 PM CDT Hospital Encounter [facility] [address] [place] [address] Don Cauesy, DO Discharge Disposition: Home or Self Care 09/10/2024 11:40 AM CDT - 09/10/2024 11:59 PM CDT Hospital Encounter [facility] [address] [place] [address] Don Causey, DO Discharge Disposition: Home or Self Care 09/09/2024 10:42 PM CDT - 09/09/2024 10:46 PM CDT Emergency [facility] Emergency Department [address] [place] [phone] Discharge Disposition: Left without being seen 09/09/2024 5:38 AM CDT - 09/09/2024 12:01 PM CDT Emergency [facility] Emergency Department [address] [place] [phone] Cassius Sanderson MD Acute on chronic congestive heart failure, unspecified heart failure type ([facility]) (Primary Dx) Discharge Disposition: Home or Self Care 09/09/2024 Travel 09/01/2024 Orders Only [facility] Neurosurgery [address] [place] [phone] Jerson Salas PA Closed fracture of first lumbar vertebra, unspecified fracture morphology, initial encounter ([facility]) (Primary Dx) 08/29/2024 7:55 PM CDT - 08/30/2024 2:43 PM CDT Emergency [facility] Emergency Department [address] [place] [phone] Danitza Wayne MD Mady, Mohamed Hamdy Ahmed Mohamed, MD COPD with exacerbation ([facility]) (Primary Dx) Discharge Disposition: Home or Self Care 08/23/2024 Telephone [facility] [address] [place] [address] Veronika Yusuf, RN Anticoagulation 08/22/2024 4:18 PM CDT - 08/26/2024 6:26 PM CDT Hospital Encounter [facility] 4A Cardiac [address] [place] [address] Austin Robertson MD Abbas, MD Lacie Soto Abhaya, MD COPD exacerbation ([facility]) Discharge Disposition: Home or Self Care 08/22/2024 Travel 08/20/2024 9:19 PM CDT - 08/20/2024 9:22 PM CDT Emergency [facility] Emergency Department [address] [place] [address] Discharge Disposition: Left without being seen 08/20/2024 Travel 08/18/2024 2:20 AM CDT - 08/18/2024 3:03 PM CDT Hospital Encounter [facility] 4B Cardiac [address] [place] [address] Danny Mclean MD Gibert, MD Safia Lagunas, MD La Soto, Michael Mathew MD Back pain Discharge Disposition: Home or Self Care 08/16/2024 Telephone [facility] [address] [place] [phone] Veronika Yusuf, RN Anticoagulation 08/14/2024 6:00 PM CDT - 08/16/2024 1:22 PM CDT Hospital Encounter [facility] 4B Cardiac [address] [place] [address] Aki Booth, DO Baig, MD Rajesh Soto Lisa K, MD Kaur, MD Trini Closed compression fracture of body of L1 vertebra (CMS/HCC) Discharge Disposition: Home or Self Care 08/07/2024 8:18 PM CDT - 08/07/2024 8:45 PM CDT Emergency [facility] Emergency Department [address] [place] [address] Discharge Disposition: Left Against Medical Advice 08/05/2024 Telephone [facility] [address] [place] [address] Veronika Yusuf, RN Anticoagulation 08/04/2024 3:41 AM CDT - 08/06/2024 4:06 PM CDT Hospital Encounter [facility] 7B Medical Surgical [address] [place] [address] Danny Mclean MD Abbas, MD Alirio Soto Saroj, MD Bajor, Kapil Johnson, Acute on chronic respiratory failure with hypoxia and hypercapnia (CMS/HCC) Discharge Disposition: Home or Self Care 08/04/2024 Results Follow-Up [facility] Emergency Department [address] [place] [address] Ayana Roman RN BLOOD CULTURE, BLOOD CULTURE 08/04/2024 Travel 08/02/2024 8:48 PM CDT - 08/03/2024 3:51 AM CDT Emergency [facility] Emergency Department [address] [place] [address] Dung Bui MD Shortness of breath (Primary Dx); Bilateral arm pain Discharge Disposition: Home or Self Care 08/02/2024 Travel 07/29/2024 Telephone [facility] [address] [place] [address] Veronika Yusuf, RN Anticoagulation 07/28/2024 3:26 PM CDT - 07/31/2024 11:57 AM CDT Hospital Encounter [facility] 6B Medical Surgical [address] [place] [address] Aki Briceno, Efraín Keys, Jennifer Tamez MD Pneumonia of left lower lobe due to infectious organism Discharge Disposition: Home or Self Care 07/28/2024 Travel 07/22/2024 Telephone [facility] [address] [place] [phone] Veronika Yusuf, RN Anticoagulation 07/21/2024 1:24 PM CDT - 07/25/2024 3:15 PM CDT Hospital Encounter [facility] 6B Medical Surgical [address] [place] [address] Abel Singletary MD Abbas, MD Bony Soto, MD Yasmeen COPD exacerbation ([facility]) Discharge Disposition: Home or Self Care 07/20/2024 6:10 PM CDT Anesthesia Event [facility] Operating Room [address] [place] [address] Aki Garcia MD 07/20/2024 5:10 PM CDT - 07/20/2024 6:14 PM CDT Surgery [facility] Operating Room [address] [place] [address] Tereso Gil, DPM TOE(S) ARTHROPLASTY 07/20/2024 1:44 PM CDT - 07/20/2024 7:52 PM CDT Hospital Encounter [facility] 3J Pre-Op [address] [place] [address] Tereso Gil, DPM Hamzahertoe of left foot Discharge Disposition: Home or Self Care 07/19/2024 Telephone [facility] [address] [place] [address] Tereso Gil, DPPio Information (PRE-OP INSTRUCTIONS AND ARRIVAL TIME) 07/19/2024 Telephone [facility] [place] [address] [place] [phone] Tereso Gil, DPM Information (SX INFO INQUIRY) 07/18/2024 4:35 PM CDT - 07/19/2024 4:54 PM CDT Hospital Encounter [facility] 4A Cardiac [address] [place] [phone] Danny Velasquez MD Sundaram, Vignesh, MD Mady, Mohamed Hamdy Ahmed Mohamed, MD Acute respiratory distress Discharge Disposition: Home or Self Care 07/18/2024 Telephone [facility] [place] [address] [place] [phone] Tereso Gil, DPM Information (RETURNING CALL TO PT) 07/14/2024 8:33 AM CDT - 07/16/2024 12:41 PM CDT Hospital Encounter [facility] 4C Medical [address] [place] [phone] Abel Singletary MD Sohail, MD Margot Klein, MD Byron Feliz Jagdeep S, MD Cellulitis of right lower extremity Discharge Disposition: Home or Self Care 07/14/2024 Telephone [facility] [place] [address] [phone] Tereso Gil, DPM Information (NOTIFY PT OF SX DATE CHANGE) 07/14/2024 Telephone [facility] [place] [address] [place] [phone] Tereso Gil, DPM Information (RESCHED SX/ PRE-OP INSTRUCTIONS AND ARRIVAL TIME) 07/14/2024 Travel 07/13/2024 Telephone [facility] [place] [address] [phone] Tereso Gil, DPM Information (TO RESCHED SX) 2024 12:27 PM CDT - 2024 11:59 PM CDT Hospital Encounter [facility] Imaging [facility] [address] [place] [phone] Jose Cruz Sanchez MD Discharge Disposition: Home or Self Care 2024 11:57 AM CDT - 2024 11:59 PM CDT Hospital Encounter [facility] Pre Admission Tstg [facility] [address] [place] [phone] Tereso Gil, DPM Discharge Disposition: Home or Self Care 2024 Travel 07/07/2024 Telephone [facility] [address] [facility] [address] [place] [address] Raúl Rod MD schedule HFU with [employer]LEMARKET[employer] cardiology 07/05/2024 External Device Data STL ABSTRACTION Provider, Abstract 07/04/2024 [facility] Ophthalmology [address] [place] [address] Eduardo Craven MD 07/04/2024 Refill [facility] [address] [facility] [address] [place] [phone] Ashley Virgen NP Chest pain, unspecified type; Congestive heart failure, unspecified HF chronicity, unspecified heart failure type ([facility]/HCC) 07/02/2024 8:47 PM CDT - 07/06/2024 7:37 PM CDT Hospital Encounter [facility] 4A Cardiac [address] [place] [address] Danny Mclean MD Elgayesh, MD Byron Garcias Jagdeep S, MD Shah, Matilde Henry MD Bipolar affective disorder ([facility]/HCC) Discharge Disposition: Left Against Medical Advice 07/02/2024 Travel 07/01/2024 [facility]phone [facility] [address] [place] [address] Madelin, Veronika D, RN Anticoagulation 06/30/2024 7:21 PM CDT - 07/02/2024 12:38 PM CDT Hospital Encounter [facility] 4A Cardiac [address] [place] [address] Aki Booth DO Elgayesh, MD Byron Garcias Jagdeep S, MD Pneumonia of left lower lobe due to infectious organism Discharge Disposition: Home or Self Care from Last 3 Months Immunizations Immunization Administration [...] PNEUM OCOCCAL CONJUGATE VACCINE 20-VALENT (PCV20), POLYSACCHARIDE [id number] CONJUGATE, ADJUVANT 0.5 ML (PF) IM 06/05/2023,12/02/2022,12/25/2021 [...] often do you attend chur ch or taoist services? More than 4 times per year 06/13/2019 Do you belong to any clubs o r organizations such as jehovah's witness groups, unions, fraternal or athletic groups, or [...] on file Legal Sex Female 11:49 PM [employer]N [employer] Gender Identity Not on file Sexual Orientation [...] Office Visit [facility] Pulmonology [address] [place] [phone] Cristian Metcalf FNP [address] [place] [address] 10/11/2024 2:30 PM CDT Office Visit [facility] Neurosurgery [address] [place] [address] Jerson Salas PA [address] [place] [address] Health Maintenance Due Date Last [...] history exists DIABETES HBA1C Q 6 MONTHS 01/28/20255, 02/19/2024, 07/10/2023, Additional history exists LDL CHOLESTEROL [...] Anguiano LPN Medical Devices Implanted Type Area Film Rental Clerk Device Identifier Shelf Expiration Date Model / Serial / Lot Dev Closure Angioseal 6fr Vip [id number] - [id number] Implanted:Qty: 1 on 03/21/2024 by Kyler Helm MD at [facility] Closure Device Right: Groin TERUMO- CARDIOVASC SYS [id number] 10/25/2024 [id number] / / [id number] 93 Imp Toe Phalinx 10 Solid Angl Sml [id number] - [id number] Implanted:Qty: 1 on 07/20/2024 by Tereso Gil DPM at [facility] Toe Left: Foot [employer] 12/29/2031 [id number] / / [id number] Procedures Procedure Name Priority Date/Time Associated Diagnosis [...] BLOOD CULTURE Stat 07/01/2024 1:20 AM CDT LIPID PANEL Routine 02/19/2024 5:29 AM [employer]ER MICROALBUMIN/CREATINI NE RATIO, RANDOM UR Routine 02/26/2023 3:01 PM [employer]N [employer]ER Type 2 diabetes mellitus without complication, without long-term current use of insulin ([facility]) Wellness examination CERV/VAG CYTO SCREEN PAP W/HPV Routine 01/06/2023 12:00 AM CDT Wellness examination MAMMO DIAGNOSTIC UNI RIGHT W OR WO CAD Routine 01/24/2011 10:03 AM CDT Lump or mass in breast from Last 3 Months or Most Recently Relevant to Health Maintenance Results * EKG 12-LEAD (09/28/2024 5:01 PM CDT) Only the most recent of22 resultswithin the time period is included. 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 : 1965 Requested By: Order Number: [id number] Jessica MD: Mana Moore Measurements Intervals [place] Rate: 105 P: 0 CA: 140 QRS: 66 QRSD: 80 T: -17 QT: 348 QTc: 459 Interpretive Statements Ectopic atrial rhythm with occasional premature ventricular complexes Cannot rule out Inferior infarct, age undetermined Abnormal ECG Electronically Signed On 09-29-2024 16:18:09 CDT by Mana Moore Procedure Note Mana Moore MD - 09/29/[address] [address] Test Date: 2024-09-28 Pat Name: LE DIAZ Department: 11 Room: 04 04 Gender: Female [employer] 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 Provider Scanning ECG ORDERABLES Final Result * (ABNORMAL) LACTIC ACID (09/15/2024 8:00 AM CDT) Only the most recent of23 resultswithin the time period is included. LACTIC ACID 2.2(H) <=2.0 mmol/L 09/15/2024 8:42 AM CDT [facility] [employer] [facility] Blood Venipuncture / Unknown 09/15/2024 8:00 AM CDT 09/15/2024 8:03 AM CDT Michael Tovar MD CHEMISTRY ORDERABLES Final Result [facility] CLIA # [id number] [address] [address] [place] [address] * PROTIME-INR (09/15/2024 8:00 AM CDT) Only the most recent of33 resultswithin the time period is included. PROTIME 13.8 12.7 - 14.9 Seconds 09/15/2024 8:42 AM CDT [facility] INR 1.0 0.8 - 1.2 09/15/2024 8:42 AM CDT [facility] Blood Venipuncture / Unknown 09/15/2024 8:00 AM CDT 09/15/2024 8:03 AM CDT [facility] - 09/15/2024 8:42 AM CDT Expected Values for INR: DVT/PE Goal INR 2.5; range 2.0 - 3.0 Valve Replacement Tissue Goal INR 2.5; range 2.0 - 3.0 Valve Replacement Mechanical Goal INR 3.0; range 2.5 - 3.5 POST-MS Goal INR 2.5; range 2.0 - 3.0 or Goal INR 3.0; range 2.5 - 3.5 Atrial Fibrillation Goal INR 2.5; range 2.0 - 3.0 Ischemic Stroke Goal INR 2.5; range 2.0 - 3.0 Michael Tovar MD HEMATOLOGY ORDERABLES Final Result [id number] [address] [place] [address] * (ABNORMAL) COMPREHENSIVE METABOLIC PANEL (09/15/2024 8:00 AM CDT) Only the most recent of22 resultswithin the time period is included. SODIUM 138 136 - 145 mmol/L 09/15/2024 10:22 AM CDT [facility] POTASSIUM 4.4 3.5 - 5.1 mmol/L 09/15/2024 10:22 AM CDT [facility] CHLORIDE 101 98 - 107 mmol/L 09/15/2024 10:22 AM CDT [facility] CO2 20(L) 22 - 29 mmol/L 09/15/2024 10:22 AM [facility] CALCIUM 8.9 8.6 - 10.0 mg/dL 09/15/2024 10:22 AM [facility] BUN 18 6 - 20 mg/dL [...] CHEMISTRY ORDERABLES Final Result Performing Organization Address City/[facility] Co de Phone Number [facility] CLIA # [id number] [address] [address] [place] [address] * (ABNORMAL) POC GLUCOSE (09/15/2024 7:26 AM CDT) Only the most recent of111 resultswithin the time period is included. GLUCOSE POC 202(H) 74 - 99 mg/dL 09/15/2024 7:26 AM CDT [facility] SPECIMEN SOURCE, GLUCOSE POC Capillary 09/15/2024 7:26 AM CDT [facility] Blood, whole 09/15/2024 7:26 AM CDT 09/15/2024 7:42 AM CDT Michael Tovar MD POINT OF CARE TESTING Final Result Performing Organization Address [facility] Co de Phone Number [facility] CLIA # [id number] [address] [id number] * (ABNORMAL) CBC WITH DIFFERENTIAL (09/14/2024 12:08 PM CDT) Only the most recent of31 resultswithin the time period is included. WBC 10.9(H) 4.8 - 10.8 K/uL 09/14/2024 12:24 PM CDT [facility] NRBCS 5(H) <1 % 09/14/2024 12:24 PM CDT [facility] RBC 3.47(L) 4.20 - 5.40 M/uL 09/14/2024 12:24 PM CDT [facility] HEMOGLOBIN 10.8(L) 12.0 - 16.0 g/dL 09/14/2024 12:24 PM [facility] HEMATOCRIT 35.2(L) 36.0 - 46.0 % 09/14/2024 12:24 PM [facility] MCV 101.4 84.0 - 103.0 [...] - 0.60 K/uL 09/14/2024 12:24 PM CDT [facility] EOSINOPHIL ABSOLUTE 0.02 0.00 - 0.70 K/uL 09/14/2024 12:24 PM CDT [facility] BASOPHILS ABSOLUTE 0.02 0.00 - 0.20 K/uL 09/14/2024 12:24 PM CDT [facility] IMMATURE GRANULOCYTES ABSOLUTE 0.19(H) 0.00 - 0.10 K/uL 09/14/2024 12:24 PM T [facility] SMEAR REVIEWED: NN - No Action Needed 09/14/2024 12:24 PM [facility] Blood Venipuncture / Unknown 09/14/2024 12:08 PM CDT 09/14/2024 12:13 PM CDT Michael Tovar MD HEMATOLOGY ORDERABLES Final Result [facility] CLIA # [id number] [address] [place] [id number] * (ABNORMAL) BLOOD GAS ARTERIAL (09/13/2024 8:22 PM CDT) Only the most recent of5 resultswithin the time period is included. PH BLOOD POC 7.40 7.35 - 7.45 09/13/2024 8:22 PM T [facility] PCO2 POC 54(H) 35 - 45 mm Hg 09/13/2024 8:22 PM T [facility] PO2 POC 44(L) 80 - 105 mm Hg 09/13/2024 8:22 PM T [facility] HCO3 (CALC) POC 33(H) 22 - 26 mmol/L 09/13/2024 8:22 PM T [facility] HEMOGLOBIN POC 10.8(L) 12.0 - 18.0 [...] 8 :22 PM CDT 09/13/2024 8:24 PM [facility] [place] Pñea Mata MD ABG ORDERABLES Final Re sult [facility] # [id number] [facility] [address] [place] [address] * XR THORACOLUMBAR SPINE 2 VW (09/13/2024 [...] 3.2(H) <=2.0 mmol/L 09/13/2024 2:52 PM CDT [facility] SPECIMEN SOURCE, GASES POC Arterial 09/13/2024 2:52 PM CDT [facility] PUNC SITE POC ART PUNCT 09/13/2024 2:52 PM CDT [facility] Blood 09/13/2024 2:52 PM CDT 09/13/2024 2:55 PM CDT Narrative [facility] - 09/13/2024 2:52 PM CDT References ranges displayed are for Arterial samples. Peña Mata MD POINT OF CARE TESTING Fi nal Result Performing Organization Address [facility]/ZIP Co de Phone Number [facility] CLIA # [id number] [address] [facility] [place] [id number] * BLOOD CULTURE (09/13/2024 2:15 PM CDT) Only the most recent of14 resultswithin the time period is included. BLOOD CULTURE No growth 09/18/2024 3:31 PM CDT [facility] Blood (Peripheral) Venipuncture / Unknown 09/13/2024 2:15 PM CDT 09/13/2024 2:38 PM CDT Peña Mata MD MICROBIOLOGY - GENERAL O RDERABLES Final Result [facility] CLIA # [id number] [address] [address] [address] [place], [place] [id number] * US ABDOMEN LIMITED (09/13/2024 1:27 PM [...] 1:12 PM CDT) Only the most recent of5 resultswithin the time period is included. Urine URINE SPECIMEN OBTAINED BY CLEAN CATCH PROCEDURE / Unknown Collection / Unknown 09/13/2024 1:12 PM CDT 09/13/2024 1:20 PM CDT Peña Mata MD URINE ORDERABLES Final R esult [facility] CLIA # [id number] [address] [address] * (ABNORMAL) URINALYSIS WITH REFLEX MICROSCOPIC (09/13/2024 1:12 PM CDT) Only the most recent of5 resultswithin the time period is included. COLOR UA Colorless(A ) Pale to Dark Yellow 09/13/2024 1:29 PM T [facility] CLARITY UA Clear Clear 09/13/2024 1:29 PM T [facility] SPECIFIC GRAVITY UA 1.012 1.003 - 1.035 09/13/2024 1:29 PM [facility] PH UA 5.5 5.0 - 8.0 09/13/2024 1:29 PM T [facility] LEUKOCYTE ESTERASE UA 2+(A) Negative 09/13/2024 1:29 PM T [facility] NITRITE UA Negative Negative 09/13/2024 1:29 PM T [facility] PROTEIN UA Negative Negative 09/13/2024 1:29 PM [facility] GLUCOSE UA 2+(A) Negative 09/13/2024 1:29 PM [facility] KETONES UA Negative Negative 09/13/2024 1:29 PM [facility] UROBILINOGEN UA <2.0 <2.0 mg/dL 1:29 PM CDT [facility] BILIRUBIN UA Negative Negative 09/13/2024 1:29 PM CDT [facility] BLOOD UA Negative Negative 09/13/2024 1:29 PM CDT [facility] WBC UA 0-2 0 - 2 /hpf 09/13/2024 1:29 PM CDT [facility] RBC UA 0-2 0 - 2 /hpf 09/13/2024 1:29 PM CDT [facility] BACTERIA UA 2+(A) Negative /hpf 09/13/2024 1:29 PM CDT [facility] EPITHELIAL CELLS, URINE 0-5 0 - 5 /hpf 09/13/2024 1:29 PM CDT [facility] HYALINE CAST 0-2 None Seen, 0-2 /lpf 09/13/2024 1:29 PM CDT [facility] Urine URINE SPECIMEN OBTAINED BY CLEAN CATCH PROCEDURE / Unknown Collection / Unknown 09/13/2024 1:12 PM CDT 09/13/2024 1:20 PM CDT Peña Mata MD URINE ORDERABLES Final R esult [facility] CLIA # [id number] [address] [place] [address] * URINE CULTURE (09/13/2024 1:12 PM CDT) CULTURE Polymicrobial growth consistent with normal urethral kota and/or colonizing bacteria 09/14/2024 11:22 AM CDT [facility] Urine URINE SPECIMEN OBTAINED BY CLEAN CATCH PROCEDURE / Unknown Collection / Unknown 09/13/2024 1:12 PM CDT 09/13/2024 1:20 PM CDT Peña Mata MD MICROBIOLOGY - GENERAL O RDERABLES Final Result [facility] CLIA # [id number] [address] [address] [place] [address] * (ABNORMAL) BLOOD GAS VENOUS (09/13/2024 11:47 AM CDT) Only the most recent of6 resultswithin the time period is included. [facility] PH BLOOD POC 7.31(L) 7.32 - 7.43 09/13/2024 11:47 AM T [facility] PCO2 POC 64(H) 38 - 50 mm Hg 09/13/2024 11:47 AM T [facility] PO2 POC 66(H) 25 - 40 mm Hg 09/13/2024 11:47 AM T [facility] HCO3 (CALC) POC 32(H) 22 - 29 mmol/L 09/13/2024 11:47 AM T [facility] HEMOGLOBIN POC 10.7(L) 12.0 - 18.0 g/dL 09/13/2024 11:47 AM T [facility] BASE EXCESS POC 6(H) -2 - 3 mmol/L 09/13/2024 11:47 AM T [facility] O2 SATURATION POC 94(H) 40 - 70 % 09/13/2024 11:47 AM [facility] SODIUM POC 136 135 - 145 mmol/L 09/13/2024 11:47 AM T [facility] POTASSIUM POC 4.3 3.5 - 4.9 mmol/L 09/13/2024 11:47 AM T [facility] HEMATOCRIT POC 32(L) 38 - 51 % 09/13/2024 11:47 AM CDT [facility] PH TEMP CORRECT 7.31(L) 7.32 - 7.43 09/13/2024 11:47 AM [facility] PCO2 TEMP CORRECT 64(H) 38 - 50 mm Hg 09/13/2024 11:47 AM CDT [facility] PO2 TEMP CORRECT 66(H) 25 - 40 mm Hg 09/13/2024 11:47 AM CDT [facility] SPECIMEN SOURCE, GASES POC Venous 09/13/2024 11:47 AM CDT [facility] CALCIUM IONIZED POC 5.3(H) 4.8 - 5.2 mg/dL 09/13/2024 11:47 AM CDT [facility] TCO2 (CALC) POC 34(H) 22 - 26 mmol/L 09/13/2024 11:47 AM CDT [facility] PUNC SITE POC No Charge 09/13/2024 11:47 AM CDT [facility] Blood, venous 09/13/2024 11: 47 AM CDT 09/13/2024 11:49 AM CDT us Peña Mata MD ABG ORDERABLES Final Re sult Performing Organization Address City/State/[facility] Co de Phone Number [facility] CLIA # [id number] [address] [place] [address] [place] [address] * (ABNORMAL) TROPONIN 6 HR, 5TH GEN (09/13/2024 9:16 AM CDT) Only the most recent of10 resultswithin the time period is included. TROPONIN T, 6 HR 5TH GEN 29(H) <11 ng/L 09/13/2024 9:55 AM CDT [facility] DELTA 6HR TROPONIN T 1 See Interp. 09/13/2024 9:55 AM CDT [facility] Blood Venipuncture / Unknown 09/13/2024 9:16 AM CDT 09/13/2024 9:24 AM CDT Narrative [facility] - 09/13/2024 9:55 AM CDT Troponin elevated. Delta indeterminate. us Robbie Yen DO CHEMISTRY ORDERABLES F inal Result [facility] CLIA # [id number] [address] [address] [place] [address] * (ABNORMAL) BASIC METABOLIC PANEL (09/13/2024 9:16 AM CDT) Only the most recent of16 resultswithin the time period is included. SODIUM 139 136 - 145 mmol/L 09/13/2024 9:59 AM T [facility] POTASSIUM 4.5 3.5 - 5.1 mmol/L 09/13/2024 9:59 AM T [facility] CHLORIDE 102 98 - 107 mmol/L 09/13/2024 9:59 AM [facility] CO2 25 22 - 29 mmol/L 09/13/2024 9:59 AM [facility] CALCIUM 9.4 8.6 - 10.0 mg/dL 09/13/2024 9:59 AM T [facility] BUN 20 6 - 20 mg/dL 09/13/2024 9:59 AM [facility] CREATININE 0.52 0.51 - 0.95 mg/dL 09/13/2024 9:59 AM [facility] GLUCOSE 257(H) 74 - 99 mg/dL 09/13/2024 9:59 AM [facility] GFR >60 >=60 mL/min/1.7 3 sq meter 09/13/2024 9:59 AM T [facility] Comment:eGFR calculated with 2020 CKD-EPI equation. Vegetarian diet, extremely high or low muscle mass, and may affect results. Cystatin C with Glomerular Filtration Rate is a suitable alternative for these patients. ANION GAP 12 9 - 20 mmol/L 09/13/2024 9:59 AM T [facility] Blood Venipuncture / Unknown 09/13/2024 9:16 AM CDT 09/13/2024 9:25 AM CDT us Nba Baig MD CHEMISTRY ORDERABLES Fi nal Result Performing Organization Address [facility]/ZIP Co de Phone Number [facility] CLIA # [id number] [address] [address] [place] [address] * (ABNORMAL) TROPONIN 2 HR, 5TH GEN (09/12/2024 11:02 PM CDT) Only the most recent of13 resultswithin the time period is included. [facility] TROPONIN T, 2 HR 5TH GEN 27(H) <=10 ng/L 09/12/2024 11:41 PM CDT [facility] DELTA 2HR TROPONIN T -1 See Interp. 09/12/2024 11:41 PM CDT [facility] Blood Venipuncture / Unknown 09/12/2024 11:02 PM CDT 09/12/2024 11:10 PM CDT Narrative [facility] - 09/12/2024 11:41 PM CDT Troponin elevated. Delta not changing. Robbie Yen DO CHEMISTRY ORDERABLES F inal Result Performing Organization Address [facility] Co de Phone Number [facility] CLIA # [id number] [facility] [id number] * RESPIRATORY PATHOGEN PCR PANEL (09/12/2024 11:02 PM CDT) Only the most recent of6 resultswithin the time period is included. [facility] Respiratory Pathogen PCR Panel NOT DETECTED No respiratory pathogen nucleic acids detected. 09/13/2024 12:31 AM CDT [facility] COVID-19 PCR NOT DETECTED Not Detected 09/13/2024 12:31 AM CDT [facility] Upper Respiratory ENTIRE NASOPHARYNX / Unknown Collection / Unknown 09/12/2024 11:02 PM CDT 09/12/2024 11:08 PM CDT Narrative [facility] - 09/13/2024 12:31 AM CDT The [...] GENERAL ORDERABLES Final Result Performing Organization Address City/[facility] Co de Phone Number [facility] CLIA # [id number] [facility] [address] [place], [place] [address] * EXTRA TUBE (BLUE) (09/12/2024 9:32 PM CDT) Only the most recent of3 resultswithin the time period is included. Blood Venipuncture / Unknown 09/12/2024 9:32 PM CDT 09/12/2024 10:59 PM CDT External Provider [facility] HEMATOLOGY ORDERABLES Jana l Result Performing Organization Address [facility] Co de Phone Number [facility] CLIA # [id number] [address] [address] [place] [address] * (ABNORMAL) TROPONIN BASELINE, 5TH GEN (09/12/2024 9:32 PM CDT) Only the most recent of13 resultswithin the time period is included. TROPONIN T, BASELINE 5TH GEN 28(H) <=10 ng/L 09/12/2024 10:15 PM CDT [facility] Blood Venipuncture / Unknown 09/12/2024 9:32 PM CDT 09/12/2024 9:41 PM CDT Narrative [facility] [employer] [facility] - 09/12/2024 10:15 PM CDT Troponin elevated. Robbie Yen DO CHEMISTRY ORDERABLES F inal Result Performing Organization Address [facility]/ZIP Co de Phone Number [facility] CLIA # [id number] [address] [place], [place] [id number] * (ABNORMAL) BRAIN NATRIURETIC PEPTIDE, BNP OR PROBNP (09/12/2024 9:32 PM CDT) Only the most recent of11 resultswithin the time period is included. [facility] PROBNP, N TERMINAL 623(H) 0 - 125 pg/mL 09/12/2024 10:22 PM CDT [facility] Comment: INTERPRETIVE COMMENT based on diagnosis: [...] ORDERABLES F inal Result Performing Organization Address City/[facility]/ZIP Co de Phone Number [facility] CLIA # [id number] [address] [place], [place] [address] * Critical Care (09/12/2024 9:09 PM CDT) [...] (ABNORMAL) MANUAL DIFFERENTIAL (09/10/2024 9:30 PM CDT) Pathologist [facility] SEGMENTED NEUTROPHILS 85(H) 36 - 66 % [...] CENTER ATYPICAL LYMPHS ABSOLUTE 09/10/2024 10:01 PM CDT [facility] MONOCYTES ABSOLUTE 0.15 0.10 - 0.60 K/uL 09/10/2024 10:01 PM CDT [facility] ANISOCYTOSIS 1+ /hpf 09/10/2024 10:01 PM CDT [facility] COTTON-JOLLY BODIES Present /hpf 09/10/2024 10:01 PM CDT [facility] TOTAL CELLS COUNTED IN DIFF 100 09/10/2024 10:01 PM CDT [facility] Blood Venipuncture / Unknown 09/10/2024 9:30 PM CDT 09/10/2024 9:33 PM CDT us Layton Barrow MD HEMATOLOGY ORDERABLES COM Final Result [facility] CLIA # [id number] [address] [place] [address] [place] [address] * D-DIMER (09/10/2024 9:30 PM CDT) Only the most recent of2 resultswithin the time period is included. D-DIMER QUANT <0.27 0.00 - 0.50 ug/mL FEU 09/10/2024 10:03 PM CDT [facility] Blood Venipuncture / Unknown 09/10/2024 9:30 PM CDT 09/10/2024 9:33 PM CDT Narrative [facility] - 09/10/2024 10:03 PM CDT D-Dimer [...] Barrow MD HEMATOLOGY ORDERABLES Final Res ult [facility] # [id number] Formerly [facility] [address] [address] [place] [address] * XR CHEST PA AND LATERAL 2 [...] 0.12(H) <=0.08 ng/mL 08/30/2024 6:32 AM CDT [facility] [employer] [facility] Blood Venipuncture / Unknown 08/30/2024 5:27 AM CDT 08/30/2024 5:41 AM CDT Narrative [facility] [employer] [facility] - 08/30/2024 6:32 AM CDT [...] Ferrara MD CHEMISTRY ORDERABLES Final Resul t [facility] CLIA # [id number] [address] [address] [place], [place] [address] * INFLUENZA A/B, RSV AND COVID-19 PCR PANEL (08/30/2024 2:52 AM CDT) Only the most recent of4 resultswithin the time period is included. COVID-19 PCR NOT DETECTED Not Detected 08/31/19 3:49 AM CDT [facility] Influenza A by PCR NOT DETECTED Not Detected 08/30/2024 3:49 AM CDT [facility] Influenza B by PCR NOT DETECTED Not Detected 08/30/2024 3:49 AM CDT [facility] RSV by PCR NOT DETECTED Not Detected 08/30/2024 3:49 AM CDT [facility] Upper Respiratory ENTIRE NASOPHARYNX / Unknown Collection / Unknown 08/30/2024 2:52 AM CDT 08/30/2024 2:55 AM CDT Narrative [facility] - 08/30/2024 3:49 AM CDT This [...] MICROBIOLOGY - GEN ERAL ORDERABLES Final Result [facility] CLIA # [id number] [address] [address] * CT ABDOMEN PELVIS W CONTRAST (08/29/2024 [...] - 60 U/L 08/29/2024 8:54 PM CDT [facility] [employer] [facility] Blood Venipuncture / Unknown 08/29/2024 8:09 PM CDT 08/29/2024 8:18 PM CDT us Danitza Wayne MD CHEMISTRY ORDERABL ES Final Result [facility] CLIA # [id number] [address] [facility] [place] [address] * PTT (08/22/2024 4:32 PM CDT) Only the most recent of3 resultswithin the time period is included. PTT 25.0 24.8 - 37.2 seconds 08/22/2024 4:57 PM CDT [facility] Blood Venipuncture / Unknown 08/22/2024 4:32 PM CDT 08/22/2024 4:38 PM CDT Narrative [facility] - 08/22/2024 4:57 PM CDT Therapeutic Range: Hi-level PE/DVT heparin protocol 80.1 - 95.0 sec Lo-level PE/DVT heparin protocol 70.1 - 85.0 sec Cardiac Heparin Protocol 70.1 - 100.0 sec us Austin Robertson MD HEMATOLOGY ORDERAB LES Final Result [facility] CLIA # [id number] [address] [facility] [place] [address] * CT CHEST WO CONTRAST (08/18/2024 11:42 [...] 6:01 AM CDT) Only the most recent of5 resultswithin the time period is included. MAGNESIUM 1.7 1.6 - 2.6 mg/dL 08/18/2024 8:21 AM CDT [facility] [employer] [facility] Blood Venipuncture / Unknown 08/18/2024 6:01 AM CDT 08/18/2024 6:40 AM CDT Nba Baig MD CHEMISTRY ORDERABLES Fi nal Result [facility] # [id number] [facility] [address] [place] [address] * VITAMIN B12 AND FOLATE (08/16/2024 4:59 AM CDT) Only the most recent of2 resultswithin the time period is included. VITAMIN B12 374 211 - 946 pg/mL 08/16/2024 6:23 AM CDT [facility] FOLATE, SERUM 14.5 3.1 - 17.5 ng/mL 08/16/2024 6:23 AM CDT [facility] Blood Venipuncture / Unknown 08/16/2024 4:59 AM CDT 08/16/2024 5:05 AM CDT us Nayely Mena MD CHEMISTRY ORDERABLES Final Resul t [facility] CLIA # [id number] [address] [address] [place] [address] * CT HUMERUS WO CONTRAST LEFT (08/15/2024 [...] * TSH REFLEXIVE (08/14/2024 7:05 PM CDT) TSH 0.48 0.27 - 4.20 uIU/mL 08/14/2024 8:09 PM CDT [facility] [employer] [facility] Blood Venipuncture / Unknown 08/14/2024 7:05 PM CDT 08/14/2024 7:14 PM CDT Aki Booth DO CHEMISTRY ORDERABLES Fi nal Result [facility] CLIA # [id number] [address] [place] [address] [place] [address] * XR HUMERUS 2+ VW LEFT (08/14/2024 [...] an occult fracture is likely present. Aki Rawls Emmy DO DIAGNOSTIC IMAGING ORDE NARCISO Final Result * (ABNORMAL) DRUG SCREEN, URINE (08/04/2024 11:44 AM CDT) [facility] AMPHETAMINE QUAL, URINE Negative Negative 08/04/2024 12:30 PM CDT [facility] BARBITURATE QUAL, URINE Negative Negative 08/04/2024 12:30 PM CDT [facility] BENZODIAZEPINE QUAL, URINE Negative Negative 08/04/2024 12:30 PM CDT [facility] COCAINE QUAL URINE Negative Negative 08/04/2024 12:30 PM CDT [facility] OPIATE QUAL, URINE Negative Negative 08/04/2024 12:30 PM [facility] CANNABINOIDS QUAL, URINE Negative Negative 08/04/2024 12:30 PM T [facility] OXYCODONE QUAL, URINE Presumptive Positive(A) Negative 08/04/2024 12:30 PM CDT [facility] METHADONE QUAL, URINE Negative Negative 08/04/2024 12:30 PM CDT [facility] FENTANYL QUAL, URINE Negative Negative 08/04/2024 12:30 PM T [facility] CREATININE, URINE 11.9(L) 29.0 - 226.0 mg/dL 08/04/2024 12:30 PM [facility] Comment:Reference Range vari es with fluid intake and diet. Urine URINE SPECIMEN OBTAINED BY CLEAN CATCH PROCEDURE / Unknown Collection / Unknown 08/04/2024 11:44 AM CDT 08/04/2024 11:51 AM CDT [facility] - 08/04/2024 12:30 PM CDT When [...] Danny Mclean MD URINE ORDERABLES Final Result Performing Organization Address [facility] de Phone Number [facility] CLIA # [id number] [address] [address] * UNFRACTIONATED HEPARIN MONITORING (08/04/2024 9:09 AM CDT) [facility] ANTI-XA UNFRAC HEP <0.10 See Interpretation IU/mL 08/04/2024 9:37 AM CDT [facility] Blood Venipuncture / Unknown 08/04/2024 9:09 AM CDT 08/04/2024 9:17 AM CDT Narrative [facility] - 08/04/2024 9:37 AM CDT Therapeutic Range: PT/DVT Heparin Protocol 0.3 - 0.7 IU/ml Cardiac Heparin Protocol 0.3 - 0.6 IU/ml The reference range for this test is specific to the anticoagulant and is not appropriate for monitoring patients on a DOAC protocol. us Lenin Amezquita MD HEMATOLOGY ORDERABLES Final Resu lt Performing Organization Address [facility] de Phone Number [facility] CLIA # [id number] [address] [address] * (ABNORMAL) CBC WITHOUT DIFFERENTIAL (08/04/2024 9:09 AM CDT) Only the most recent of4 resultswithin the time period is included. [facility] WBC 9.5 4.8 - 10.8 K/uL 08/04/2024 9:24 AM T [facility] NRBCS 1(H) <1 % 08/04/2024 9:24 AM [facility] RBC 4.14(L) 4.20 - 5.40 M/uL 08/04/2024 9:24 AM T [facility] HEMOGLOBIN 13.2 12.0 - 16.0 g/dL 08/04/2024 9:24 AM T [facility] HEMATOCRIT 41.7 36.0 - 46.0 % 08/04/2024 9:24 AM T [facility] MCV 100.7 84.0 - 103.0 fL 08/04/2024 9:24 AM T [facility] MCH 31.9 27.0 - 34.0 pg 08/04/2024 9:24 AM T [facility] MCHC 31.7 30.0 - 35.0 g/dL 08/04/2024 9:24 AM CDT [facility] PLATELETS 178 140 - 440 K/uL 08/04/2024 9:24 AM T [facility] MPV 10.0 8.9 - 12.8 fL 08/04/2024 9:24 AM [facility] RDW 18.4(H) 11.0 - 14.5 % 08/04/2024 9:24 AM [facility] RDW-STDEV 68.4(H) 37.0 - 54.0 fL 08/04/2024 9:24 AM T [facility] Blood Venipuncture / Unknown 08/04/2024 9:09 AM CDT 08/04/2024 9:17 AM CDT us Lenin Amezquita MD HEMATOLOGY ORDERABLES Final Resu lt [facility] CLIA # [id number] [address] [address] [place] [address] * HCG QUANTITATIVE, BLOOD (08/04/2024 4:11 AM CDT) HCG QUANT, BLOOD 0.1 0.0 - 1.0 mIU/mL 08/04/2024 5:12 AM CDT [facility] Comment: HCG Quantitative Reference Range Male [...] Mclean MD CHEMISTRY ORDERABLES Final Res ult [facility] CLIA # [id number] [address] [address] * CTA CHEST W AND/OR WO CONTRAST [...] of2 resultswithin the time period is included. [facility] TSH 2.21 0.27 - 4.20 uIU/mL 08/02/2024 10:15 PM CDT [facility] Blood Venipuncture / Unknown 08/02/2024 9:23 PM CDT 08/02/2024 9:34 PM CDT Tiffanie Childress NP CHEMISTRY ORDERABLES Final Res ult [facility] CLIA # [id number] [address] [place] [address] * (ABNORMAL) VANCOMYCIN LEVEL TROUGH (07/30/2024 11:41 AM CDT) [facility] VANCOMYCIN, TROUGH 9.7(L) 10.0 - 17.0 ug/mL 07/30/2024 12:26 PM CDT [facility] Blood Venipuncture / Unknown 07/30/2024 11:41 AM CDT 07/30/2024 11:54 AM CDT us Jennifer Sanchez MD CHEMISTRY ORDERABLES Final Resu lt Performing Organization Address [facility] Co de Phone Number [facility] CLIA # [id number] [address] [address] * PHOSPHORUS (07/29/2024 6:04 AM CDT) PHOSPHORUS 2.7 2.5 - 4.5 mg/dL 07/29/2024 6:50 AM CDT [facility] Blood Venipuncture / Unknown 07/29/2024 6:04 AM CDT 07/29/2024 6:08 AM CDT us Efraín Dye DO CHEMISTRY ORDERABLES Final R esult Performing Organization Address [facility] de Phone Number [facility] CLIA # [id number] [address] [address] * (ABNORMAL) HEMOGLOBIN A1C (07/28/2024 9:29 PM CDT) HEMOGLOBIN A1C 8.9(H) <=5.6 % 07/30/2024 8:43 AM CDT [facility] EST. AVG GLUCOSE, A1C 209 mg/dL 07/30/2024 8:43 AM CDT [facility] Blood Venipuncture / Unknown 07/28/2024 9:29 PM CDT 07/28/2024 9:50 PM CDT Narrative [facility] - 07/30/2024 8:43 AM CDT HGB A1C INTERPRETATION NORMAL: <5.7% PRE-DIABETES: 5.7 - 6.4% DIABETES: 6.5% OR GREATER us Efraín Dey DO CHEMISTRY ORDERABLES Final R esult Performing Organization Address City/[facility] Co de Phone Number [facility] CLIA # [id number] [address] [facility] [place] [address] * EXTRA TUBE (SST/GOLD) (07/28/2024 3:47 PM CDT) Blood Venipuncture / Unknown 07/28/2024 3:47 PM CDT 07/28/2024 3:56 PM CDT us Aki Briceno DO CHEMISTRY ORDERABLES Final Re sult [facility] CLIA # [id number] [address] [facility] [place] [address] * PNEUMONIA PATHOGEN PCR PANEL (07/23/2024 6:15 AM CDT) [facility] Pneumonia Pathogen PCR Panel NOT DETECTED No nucleic acids detected. 07/23/2024 1:18 PM CDT [facility] Sputum COUGHED SPUTUM SPECIMEN / Unknown Collection / Unknown 07/23/2024 6:15 AM CDT 07/23/2024 6:15 AM CDT Narrative [facility] - 07/23/2024 1:18 PM CDT NOTE: Per the director of business systems, this current lot of reagent may be insensitive for the full detection of adenoviruses. If adenovirus is within the differential diagnosis, the specimen may be submitted to a reference laboratory for further testing. If desired, order [id number] Lab Test, stating Adenovirus by PCR testing in the ordering comment and notify the Microbiology lab at [phone]. A negative result does not exclude the [...] MICROBIOLOGY - GENERAL ORDERABLE S Final Result Performing Organization Address City/[facility]/ZIP Co de Phone Number [facility] CLIA # [id number] [address] [address] * SPUTUM CULTURE WITH GRAM STAIN (07/23/2024 6:15 AM CDT) Pathologist [facility] CULTURE No pathogens isolated. Normal respiratory kota present. 07/25/2024 7:06 AM CDT [facility] GRAM STAIN Smear contains </=10 squamous epithelial cells per low power field 07/25/2024 7:06 AM CDT [facility] GRAM STAIN <25 PMN WBC/LPF 7:06 AM CDT [facility] GRAM STAIN Mixed kota with no predominate morphology 07/25/2024 7:06 AM CDT [facility] Sputum COUGHED SPUTUM SPECIMEN / Unknown Collection / Unknown 07/23/2024 6:15 AM CDT 07/23/2024 6:15 AM CDT Yasmeen Lovett MD MICROBIOLOGY - GENERAL ORDERABLE S Final Result Performing Organization Address [facility] Co de Phone Number [facility] CLIA # [id number] [address] [address] * Critical Care (07/21/2024 1:16 PM CDT) [...] not difficult Staffing Performed: Anesthesiologist (/) and CHECK OUT CASHIER/CAA Authorized by: Aki Garcia MD Performed by: [...] 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 Procedure Note Meir Chawla DO - 07/15/2024 Exam: XR FOOT 3+ [...] SCREEN (07/14/2024 3:44 PM CDT) Pathologist [facility] MRSA PCR RESULT MRSA not detected MRSA not detected 07/14/2024 5:12 PM CDT [facility] Surveillance ANTERIOR NARES SWAB / Unknown Collection / Unknown 07/14/2024 3:44 PM CDT 07/14/2024 3:53 PM CDT Narrative [facility] - 07/14/2024 5:12 PM CDT This assay is used to detect Methicillin-Resistant S. aureus (MRSA) colonization of the nares. PLEASE NOTE: This test has not been approved to monitor effectiveness of MRSA decolonization. Residual DNA may temporarily be present after successful decolonization. This test was performed using an FDA approved screening methodology. Nba Nguyen MD MICROBIOLOGY - GENERAL O RDERABLES Final Result [facility] CLIA # [id number] Formerly [facility], [facility] [address] [address] [place] [address] * XR TIBIA AND FIBULA 2 VW [...] AM CDT Narrative 07/15/2024 9:45 AM CDT [facility] Noninvasive Vascular Laboratory [address] [place] [id number] Noninvasive Vascular Lab Venous Exam Unilateral Lower Extremity Duplex Patient: Le Diaz Study ID: US VENOUS DOPPLE Gender: F : 1965 Age: 59 Room: Height: 165.1cm Weight: 95.3kg BSA: 2.13m^2 Pt status: Emergency Study Date: 07/14/2024 Study Time: 09:47:06 AM BSA: 2.13m^2 Ordering: Abel Singletary:Prince Luana [employer] Supervisor: Kofi Leon Indications: Extremity Edema. Summary Impression: [...] Patent; Normal phasicity; spontaneous; compressible; normal augmentation [facility] is accredited with the [employer]tersoci[employer] Commission for the Accreditation of Vascular Laboratories (ICAVL) Prepared and Electronically Authenticated Prince Luana Confirmed 07/15/2024 09:45 Procedure Note Prince Craft MD - 07/15/2024 [facility] Noninvasive Vascular Laboratory [address] [place] [address] Noninvasive Vascular Lab Venous Exam Unilateral Lower Extremity Duplex Patient: Le Diaz Study ID: US VENOUS DOPPLE Gender: F : 1965 Age: 59 Room: Height: 165.1cm Weight: 95.3kg BSA: 2.13m^2 Pt status: Emergency Study Date: 07/14/2024 Study Time: 09:47:06 AM BSA: 2.13m^2 Ordering: Abel Singletary Interpreting:Prince Luana [employer] Supervisor: Kofi Leon Indications: Extremity Edema. Summary Impression: [...] femoral Patent; Normal phasicity; spontaneous;compressible; normal augmentation [facility] is accredited with [facility] Commission for the Accreditation of Vascular Laboratories (ICAVL) Prepared and Electronically Authenticated Luana Nick Confirmed 07/15/2024 09:45 Abel Singletary MD US ORDERABLES Final Result * (ABNORMAL) SEDIMENTATION RATE (07/14/2024 8:51 AM CDT) Pathologist [facility] ESR (SEDIMENTATION RATE) 52(H) 0 - 20 mm/Hr 07/14/2024 11:09 AM CDT [facility] Blood Venipuncture / Unknown 07/14/2024 8:51 AM CDT 07/14/2024 8:56 AM CDT Abel Singletary MD HEMATOLOGY ORDERABLES Final Re sult [facility] CLIA # [id number] [address] [place] [id number] * (ABNORMAL) C-REACTIVE PROTEIN (07/14/2024 8:51 AM CDT) Pathologist [facility] CRP 43.4(H) 0.0 - 5.0 mg/L 07/14/2024 11:11 AM CDT [facility] Blood Venipuncture / Unknown 07/14/2024 8:51 AM CDT 07/14/2024 8:56 AM CDT us Abel Singletary MD CHEMISTRY ORDERABLES Final Res ult [facility] # [id number] [address] [facility] [place] [address] * ECHOCARDIOGRAM W/ CONTRAST AGENT (07/06/2024 9:15 AM CDT) EJECTION FRACTION 50 INTERFACE SYSTEM 07/06/2024 8:26 AM CDT Narrative INTERFACE SYSTEM - 07/06/2024 3:59 PM CDT [facility] Echocardiography Laboratory [address] [place] [address] Transthoracic Echocardiography Patient: Le Diaz Study ID: ECHO COMPLETE - Gender: F : 1965 Age: 58 Room: [facility] Study Date: 07/06/2024 Pt Status: Inpatient Study Time: 08:26:26 AM RICK #: [id number] Ordering:Raúl Rod School Crossing Guard Supervisor: Brenda Almanza Indications and History: Check wall [...] (H) robbie values outside specified reference range. [facility] are accredited with the Intersocietal Accreditation Commission - Echocardiography. Prepared and Electronically Authenticated Raúl Rod Confirmed 07/06/2024 15:59 Procedure Note Raúl Rod MD - 07/06/2024 [facility] Echocardiography Laboratory [address] [place] [address] Transthoracic Echocardiography Patient: Le Diaz Study ID: ECHOCOMPLETE - Gender: F : 1965 Age: 58 Room: [facility] Study Date: 07/06/2024 Pt Status: Inpatient Study Time: 08:26:26 AM RICK #: [id number] Ordering:Raúl Rod School Crossing Guard Supervisor: Brenda Almanza Indications and History: Check wall [...] (H) robbie values outside specified reference range. [facility] are accredited with theCity [facility], [place] Accreditation Commission - Echocardiography. Prepared and Electronically Authenticated Raúl Rod Confirmed 07/06/2024 15:59 Raúl Rod MD ORDERABLES Final Result Performing Organization Address City/State/[facility] Co de Phone Number INTERFACE SYSTEM [...] abnormality is seen. Impression: No acute fracture. Matilde Nix MD DIAGNOSTIC IMAGING ORD ERABLES Final Result * US VENOUS DOPPLER LEG BILATERAL (07/01/2024 10:33 AM CDT) Anatomical Region Laterality Modality Lower Extremity Ultrasound 07/01/2024 7:03 AM CDT Narrative 07/04/2024 9:25 AM CDT [facility] Noninvasive Vascular Laboratory [address] [place] [address] Noninvasive Vascular Lab Venous Exam Unilateral Lower Extremity Duplex Patient: Le Diaz Study ID: US VENOUS DOPPLE Gender: F : 1965 Age: 58 Room: [facility] Height: 162.6cm Weight: 95.4kg BSA: 2.12m^2 Pt status: Inpatient Study Date: 07/01/2024 Study Time: 07:03:35 AM BSA: 2.12m^2 Ordering: Landon Blankenship Interpreting:Danny Lancaster [employer] Cross[employer] Guard Supervisor: Yoly Fair RVT Indications: R/o dvt. Summary [...] Patent; Normal phasicity; spontaneous; compressible; normal augmentation [facility] Vascular Lab is accredited with the Intersocietal Commission for the Accreditation of Vascular Laboratories (ICAVL) Prepared and Electronically Authenticated Danny Lancaster Confirmed 07/04/2024 09:25 Procedure Note Danny Lancaster MD - 07/04/2024 [facility] Noninvasive Vascular Laboratory [facility] [place] [address] Noninvasive Vascular Lab Venous Exam Unilateral Lower Extremity Duplex Patient: Le Diaz Study ID: US VENOUS DOPPLE Gender: F : 1965 Age: 58 Room: [facility] Height: 162.6cm Weight: 95.4kg BSA: 2.12m^2 Pt status: Inpatient Study Date: 07/01/2024 Study Time: 07:03:35 AM BSA: 2.12m^2 Ordering: Landon Blankenship Interpreting:Danny Lancaster School Crossing Guard Supervisor: Yoly Fair RVT Indications: R/o dvt. Summary [...] saphenous Patent; Normal phasicity; spontaneous;compressible; normal augmentation [facility] Vascular Lab is accredited with theIntersocietal Commission for the Accreditation of Vascular Laboratories (ICAVL) Prepared and Electronically Authenticated Danny Lancaster Confirmed 07/04/2024 09:25 Landon Blankenship MD US ORDERABLES Jana l Result * (ABNORMAL) LIPID PANEL (02/19/2024 5:29 AM [facility]) CHOLESTEROL 188 <200 mg/dL 02/19/2024 10:25 AM [facility] [employer] [facility] TRIGLYCERIDE 104 <150 mg/dL 02/19/2024 10:25 AM [facility] [employer] [facility] HDL 36(L) 40 - 59 mg/dL 02/19/2024 10:[address] [facility] LDL CALCULATED 131(H) <100 mg/dL 02/19/2024 10:[address] [facility] NON-HDL CHOLESTEROL 152(H) <130 mg/dL 02/19/2024 10:[address] [facility] Blood Venipuncture / Unknown 02/19/2024 5:29 AM [facility] 02/19/2024 5:34 AM [facility] Narrative [facility] [employer] [facility] - 02/19/2024 10:25 AM [facility] TOTAL CHOLESTEROL mg/dL Desirable <200 [...] MD CHEMISTRY ORDERABLES Final R esult [facility] SERVICES [facility] CLIA # [id number] [address] [facility] [place] [address] * MICROALBUMIN/CREATININE RATIO, RANDOM UR (02/26/2023 3:01 PM [facility]) Creatinine, Urine 199 20 - 275 mg/dL [facility] MICROALBUMIN, URINE 1.9 See Note: mg/dL [facility] Comment: Reference Range: Reference Range Not established MICROALBUMIN/CREAT RATIO, UR 10 <30 mcg/mg creat [facility] Comment: The ADA defines abnormalities in [...] category. FASTING:UNKNOWN FASTING: UNKNOWN Test Performed at: [facility] [address] [facility] [place] [address] Emily Dumont MD Urine URINE SPECIMEN OBTAINED BY CLEAN CATCH PROCEDURE / Unknown 02/26/2023 3:01 PM [facility] 02/26/2023 3:02 PM [facility] Ryann Burk MD URINE ORDERABLES Final Result [facility] [phone] [facility] [address] [place], [place] [address] [address] * CERV/VAG CYTO SCREEN PAP W/HPV (01/06/2023 12:00 AM CDT) Pathologist [facility] CLINICAL INFORMATION [facility] [place] Comment:None given LAST MENSTRUAL PERIOD [facility] [place] Comment:NONE GIVEN PREV PAP: Call [facility] [place] Comment:NONE GIVEN PREV BX: [facility] [place] Comment:NONE GIVEN SOURCE [facility] [place] Comment:ENDOCERVIX ADEQUACY: [facility] [place] Comment: Satisfactory for evaluation. Endocervical/transformation zone component present. Age and/or menstrual status not provided PAP INTERP [facility] [place] Comment: Cytology Results: Negative for intraepithelial lesion or malignancy. COMMENT (PAP TEST) [facility] Comment: This Pap test has been evaluated with computer assisted technology. SUPERVISOR/PORT DIRECTOR: Irving Gasca Comment: BKA CT(ASCP) CT screening location: [place] [address] [place] [address] EXPLANATORY NOTE [facility] Comment: EXPLANATORY NOTE: The Pap is [...] information. HPV E6/E7 Not Detected Not Detected [facility] Comment: Methodology: Con[employer] V[employer] Maker-Mediated Amplification This assay detects E6/E7 viral messenger RNA (mRNA) from 14 high-risk HPV types (16,18,31,33,35,39,45,51,52,56,58,59,66,68). Cervical sources are required for HPV testing. If a vaginal source from a patient who has had a total hysterectomy with removal of cervix was submitted, please contact the testing laboratory for alternative testing options. For additional information, please refer to http://education.ProsperWorks/faq/BAI263l8 (This link if provided for information/ educational purposes only.) Test Performed at: [facility] [address] [place] [address] Emily TRAN Genital SWAB OF ENDOCERVIX / Unknown 01/06/2023 01/08/2023 10:07 AM CDT us Ryann Burk MD PATHOLOGY/CYTOLOGY ORDERABLES Fi nal Result [facility] [phone] [facility] [employer] [facility] [address] [place] [place] [address] * MAMMO DIAGNOSTIC UNI RIGHT W OR [...] Date of Phone Billing Address Personal/Family [address] [place] [address] RX INFOCROSSING Medicaid RX WAGONER PLANS (INTERNAL) [facility] Plans [place] Member Subscriber Plan / Payer (Ef fective 2020-Present) Name:Le Diaz Relation to Subscriber:Self Name:Le Diaz Payer ID:Not on file Group ID:Not on file Type:Medicaid Address: [address] [place] [address] Advance Directives For more information, please contact: [phone] Documents on File Type Date Recorded Patient Instrumentation Tech Expl anation Advance Directive Living Will 07/23/2023 [...] 9:59 PM 08/16/2024 3:32 PM Care Teams Dentist Relationship Specialty Start Date End Date Delta Wade MD [address] [place] [address] PCP - General Family Practice 03/25/24
--- OUTSIDE RECORDS SUMMARY | 2024-09-30 01:09 | XMS_ITS | Encounter Summary ---
Author Organization [facility] Address [address] [place] [address] Care Team Providers Care Director Business Integration Name Role Phone Delta Wade MD Primary Care Provider [phone] Encounter Details Date Type Department Care Team (Latest Contact Info) Description 08/04/2024 Results Follow-Up [facility] Emergency Department [address] [place] [address] Ayana Roman RN BLOOD CULTURE, [...] How often do you attend [facility] or muslim services? More than 4 times per year 06/13/2019 Do you belong to any clubs o r organizations such as christianity groups, unions, fraternal or athletic groups, or [...] on file Legal Sex Female 11:49 PM [employer] Gender Identity Not on file Sexual Orientation Not on file documented as of this encounter Plan of Treatment Upcoming Encounters Date Type Department Care Team (Late st Contact Info) Description 10/06/2024 4:00 PM CDT Office Visit [facility] [address] [place] [address] Cristian Metcalf FNP [address] [place] [address] 10/11/2024 2:30 PM CDT Office Visit [facility] [address] [place] [address] Jerson Salas PA [address] [place] [address] documented as of this encounter [...] as of this encounter Care Teams Director Business Integration Relationship Specialty Start Date End Date Delta Wade MD [address] [address] PCP - General Family Practice 03/25/24 documented as of this encounter
--- OUTSIDE RECORDS SUMMARY | 2024-09-30 01:10 | XMS_ITS | Patient Health Record ---
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 And Truing Machine Operator Name Role Phone Delta Wade Primary Care Provider Unavailabl Jose Cruz Callejas Unavailable [phone] Yakov Sanon Unavailable [phone] Marcia Perez Unavailable [phone] Gregorio Montes Unavailable [phone] Masoud Bello Unavailable [phone] Acacia Gaines Unavailable [phone] Hannah Rai Unavailable [phone] Allergies Allergen (clinical drug ingredient) Drug/Non Drug Allergy documented on EMR Reaction Allergy Type Onset Date Status Information temporarily unavailable Compazine Unknown Drug Allergy Active Information temporarily unavailable Ketorolac Unknown Drug Allergy Active Results Component Value Reference Range Notes Schedule Confirmation Reviewed date:11/30/2023 12:40:58 PM Interpretation: Performing Lab: Notes/Report: Heart Cath Lt poss PTCA Schedule Confirmation Reviewed date:11/30/2023 12:40:58 PM Interpretation: Performing Lab: Notes/Report: Heart Cath Lt poss PTCA zzzHeart Cath Lt poss PTCA Reviewed date:11/30/2023 12:41:13 PM Interpretation: Performing Lab: Notes/Report: [email or web address]=[id number]&org=[facility] Echo Complete EC-34263 Reviewed date:11/30/2023 12:41:13 PM Interpretation: Performing Lab: Notes/Report: vle=[id number]&org=[facility] Echo Complete EC-06858 Reviewed date:11/30/2023 12:41:13 PM Interpretation: Performing Lab: Notes/Report: Cardiopulmonary Services Name: GIANFRANCO DIAZ Study Date: 11/27/2023 : [address] [facility]:[id number] Patient Location: 3WST Age: 58 yrs Gender: [...] By: Alexandra Herrera RCS Schedule Confirmation Reviewed date:07/13/2024 07:16:00 PM Interpretation: [...] This report was dictated outside of the PolyRemedy system. trop 2nd@ 3510 @ 0021 Read See Below For Report zzzHeart Cath Lt poss PTCA Reviewed date:05/16/2024 05:08:19 PM Interpretation: Performing Lab: Notes/Report: kce=[id number]&org=[facility]Site Partial Thromboplastin Time 97456 Reviewed date:05/16/2024 05:08:19 PM Interpretation: Performing Lab: Notes/Report: trop 2nd@ 3510 @ 0021 3510 @ 0021 PTT 27.1 22.6-31.8 SEC Therapeutic Range: 60-100. Critical Value Starting at > 100. Prothrombin Time 72235 Reviewed date:05/16/2024 05:08:19 PM Interpretation: Performing Lab: Notes/Report: trop 2nd@ 3510 @ 0021 3510 @ 0021 ProTime 10.8 9.1-11.9 SEC Normal Range: 9.1-11.9 INR 1.02 .90-1.20 Therapeutic Range: 2.0-3.0 Therapaeutic Range for heart valve replacement: 2.5-3.50 NM HB Scan w/ejection fracti on-33688 Reviewed date:01/05/2024 04:36:45 PM Interpretation: Performing Lab: Notes/Report: [id number]&org=Teri Maxwell Cath Lt poss PTCA Reviewed date:11/30/2023 12:40:58 PM Interpretation: Performing Lab: Notes/Report: See Below For Report This report was dictated outside of the PolyRemedy system. 3523 @ 0100 Read See Below For Report Schedule Confirmation Reviewed date:07/04/2024 04:08:48 PM Interpretation: Performing Lab: Notes/Report: CT Chest ION Endoluminal Schedule Confirmation Reviewed date:05/16/2024 05:08:19 PM Interpretation: Performing Lab: Notes/Report: Heart Cath Lt poss PTCA Schedule Confirmation Reviewed date:05/16/2024 05:08:19 PM Interpretation: Performing Lab: Notes/Report: Heart Cath Lt poss PTCA NM HB Scan w/ejection fracti on-76811 Reviewed date:01/05/2024 04:37:06 PM Interpretation: Performing Lab: Notes/Report: See Below For Report NM HB Scan w/ejection fraction 2407 @ 2313 Read See Below For Report Reason For Referral Reason COPD; 06/07: 1 wk pe r Eula 06/07: Left Message SCHEDULED 06/20 @ 2:10 PM Diagnosis 1 Chronic obstructive pulmonary disease, unspecified (J44.9) Referring Provider First Name ER Referring Provider Last Name [facility] Referring Provider Speciality Emergency Medicine Referred Organization Replaced By [facility] Referred Provider Jose Cruz Landry Referred Address [address] [place] [address] [address],[place], [place],[address], Referred Provider Specialty Pulmonary Di seases General [...] Date Status Comme nts Influenza (whole), CPT 15743 Inactive Unknown 01/04/2024 Administered Social History Tobacco Use: Social History Observation Description Date Details (start date - stop date) Former Smoker NA - NA Tobacco Control (Standard) Question Answer Notes Tobacco use: Former smoker How long has it been since you last smoked? 1-5 years Problems Problem Type SNOMED Code ICD Code Onset Dates Problem Status W/U Status Risk Notes Problem 18332555560322771 Nicotine dependence, cigarettes, in remission (F17.211) Active confirmed Problem Ischemic cardiomyopathy (971873322) Ischemic cardiomyopathy (I25.5) Active confirmed Problem Chronic obstructive pulmonary disease (92475646) Chronic obstructive pulmonary disease, unspecified (J44.9) Active confirmed Problem Gastro-esophageal reflux disease without esophagitis (892159516) Gastro-esophageal reflux disease without esophagitis (K21.9) Active confirmed Problem C-reactive protein abnormal (277217522) Elevated C-reactive protein (CRP) (R79.82) Active confirmed Problem 382120584 Solitary pulmona ry nodule (R91.1) Active confirmed Problem Long-term current use of anticoagulant (947704693) 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 anticoagulants (Z79.01) Active confirmed Problem Atherosclerotic heart disease of [place] coronary artery without angina pectoris (336910135692374) Arteriosclerosis of coronary artery (I25.10) Active confirmed Problem Information temporarily unavailable H/O heart artery stent (Z95.5) Active confirmed Problem Long-term current use of anticoagulant (604576287) Anticoagulated (Z79.01) Active confirmed Problem Angina (071809836) Atheroscleros is of [place] coronary artery of [place] heart with angina pectoris (I25.119) Active confirmed Problem Acute non-ST segment elevation myocardial infarction (007093483) Non-ST elevated myocardial infarction (I21.4) Active confirmed Problem History of pulmonary embolus (300701842) Hx of pulmonary embolus (Z86.711) Active confirmed Problem Coronary stent patent (605935943) Coronary stent patent (Z95.5) Active confirmed Problem 899567619 Chronic hypoxic respiratory failure (J96.11) Active confirmed [...] N/A Encounters Encounter Location Date Provider Diagnosis Replaced By [facility] [address] [facility] [place] [address] 10/01/2023 Yakov Sanon Acute pain of left shoulder M25.512 Replaced By [facility] [address] [place] [address] [place] [address] 06/20/2024 Jose Cruz Landry Solitary pulmonary nodule R91.1 ; Chronic hypoxic respiratory failure J96.11 ; Nicotine dependence, cigarettes, in remission F17.211 and Shortness of breath R06.02 Replaced By [facility] [address] [place] [address] 02/17/2024 Gregorio Montes Replaced By [facility] [place] [address] [place] [address] 06/06/2024 Masoud Bello Other fracture of unspecified lumbar vertebra, initial encounter for closed fracture S32.008A Replaced By [facility] [address] [place] [address] [place] [address] 06/30/2024 Jose Cruz Landry Assessments Encounter Date [...] remission (ICD-10 - F17.211) Patient smoked a smqy-hvk-xma for 45 years. She has been abstinent [...] Test Test Name Order Date Lumbosacral Spine AP/Lat-54672 5 PFT with FRC: (NO TGV) 06/20/2024 CT Chest ION Endoluminal-45911 5 Insurance Providers Payer Name Payer Address Payer Phone Subscriber Number Group Number Insured Name Patient Relationship to Insured Coverage Start Date Coverage End Date [place] [address] [place] [phone] [id number] GIANFRANCO DIAZ Self - patient is the [...]
--- OUTSIDE RECORDS SUMMARY | 2024-09-30 01:10 | XMS_ITS | CCD ---
Author Name Interface, [id number] lity Address [address] [facility] [place] [address] [facility] Address [address] [place] [address] Care Team Providers Care Spider Assembler Name Role Phone Anika VALLADARES, Allen Unavailable [...]
[2024-09-30 01:14] VITALS: BP 107/64; PULSE 89; RESP 18; TEMP 36.8; O2SAT 97
--- NOTE | 2024-09-30 02:31 | XRR_ITS ---
PROCEDURE INFORMATION: Exam: XR Chest Exam date and time: 09/30/2024 4:49 AM Age: 59 years old Clinical indication: Shortness of breath TECHNIQUE: Imaging protocol: Radiologic exam of the chest. Views: 1 view. COMPARISON: CR (CHEST, ) 09/18/2024 4:08 AM FINDINGS: Lungs: Hypoventilatory changes at the lung bases. Mild chronic interstitial prominence. Pleural spaces: Unremarkable. No pleural effusion. No pneumothorax. Heart/Mediastinum: Unremarkable. No cardiomegaly. Bones/joints: Anterior cervical fusion. XR/XR chest 1V portable 09377 IMPRESSION: No acute findings.
[2024-09-30 04:10] VITALS: BP 156/78; PULSE 83; RESP 18; TEMP 36.9; O2SAT 97
--- NOTE | 2024-09-30 05:23 | PC.NURSE ---
Pt. continually pushing call light and demanding to see doctor for pain medication. Pt. then started pulling cord out of the wall plug and plugging it back in to get staff attention. Pt. has been told that the doctor has been notified and will see her but has several things going on. Pt. also keeps demanding a coke and has been told not to eat or drink until she has been seen by the doctor and he has said that it is okay.
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
[2024-09-30 06:00] VITALS: BP 163/100; PULSE 97; O2SAT 95
[2024-09-30] MEDS: HYDROmorphone 0.5 MG/0.5 ML INJ 1 MG IM (06:14)
[2024-09-30 06:38] VITALS: BP 163/100; PULSE 100; O2SAT 97
== END 2024-09-30 06:39 | disposition home or self-care (01) ==
PROVIDERS: Emergency Provider Family Medicine; PCP Family Medicine
DX: S39.012A Strain of muscle, fascia and tendon of lower back, initial encounter (principal); W07.XXXA Fall from chair, initial encounter; E11.9 Type 2 diabetes mellitus without complications; I10 Essential (primary) hypertension; I25.10 Atherosclerotic heart disease of native coronary artery without angina pectoris; J44.9 Chronic obstructive pulmonary disease, unspecified; Z79.899 Other long term (current) drug therapy; Z79.85 Long-term (current) use of injectable non-insulin antidiabetic drugs; Z79.4 Long term (current) use of insulin; Z79.01 Long term (current) use of anticoagulants; Z88.8 Allergy status to other drugs, medicaments and biological substances; Z87.891 Personal history of nicotine dependence
CPT/HCPCS: 71045; 96372; 99284; J1171

== ENCOUNTER 2024-10-04 18:20 | Emergency (ER) | payer MEDICAID, SELFPAY ==
--- OUTSIDE RECORDS SUMMARY | 2020-06-27 10:30 | XMS_ITS | Continuity of Care Document ---
Author Organization [facility] Address [address] [place] [address] Phone Care Team Providers Care Bull Bucker Name Role Phone Unavailable Unavailable Unavailable Allergies, [...] Active Procedures Procedure Date OFFICE/OUTPATIENT VISIT, [facility] Advance Directives Directive Yes / No Effective Date File Name No Information Encounters Encounter Description Practice Location Reason(s) For Visit Diagnoses Date Provider Providers Copied on Encounter OFFICE/OUTPA TIENT VISIT, [facility], [address], [place], [place], [address] , [place] tel: [phone] [facility] follow up [...] party ID Authoriza dioni(s) Medicaid - Medical [id number] Social History Type Description Quantity Date Captured [...] her vagina and is being managed at [facility]. Patient has HTN, hip pain, and [...] her vagina and is being managed at [facility]. Patient has HTN, hip pain, and [...]
--- OUTSIDE RECORDS SUMMARY | 2024-07-19 03:00 | XMS_ITS ---
Author Organization [facility] Address [address] [place] [address] Care Team Providers Care Wire Charger Name Role Phone Delta Wade Primary Care Provider Jose Cruz Harvey [phone] REASON FOR VISIT [phone] Encounters Encounter Location Date Provider Diagnosis [facility] [address] [place] [address] [place] [address] 07/19/2024 Jose Cruz Forde Plan Of Treatment No Information Progress Notes * GIANFRANCO DIAZDOB: 6 (59 yo F)Acc No.[id number]:07/19/2024 Pulmonary Function Test Patient: Jahaira GIANFRANCO HANNA Provider: Abdirahman Forde MD :1965 A ge:59 Y S ex:Female Date:07/19/2024 Address:[address] [place], [place] [phone] Pcp:Delta Wade Subjective: * Chief Complaints: * 6 [id number] Billing Information: * Procedure Codes: * Electronic signature of Natasha Forde MD on 10/04/2024 at 06:27 PM CDT Sign off status: Pending * Provider: Abdirahman Forde MD Date: 07/19/2024 Generated for Mani contreras/Moshe/eTransmitting on: 10/04/2024 06:27 PM CDT
--- OUTSIDE RECORDS SUMMARY | 2024-07-19 05:10 | XMS_ITS ---
Author Organization [facility] Address [address] [place] [address] Care Team Providers Care Assistant Name Role Phone Delta Wade Primary Care Provider Jose Cruz Harvey [phone] REASON FOR VISIT abnormal chest CT Medications [...] Active Encounters Encounter Location Date Provider Diagnosis [facility] [address] [place] [address] [place] [address] 07/19/2024 Jose Cruz Forde Solitary pulmonary nodule [...] remission (ICD-10 - F17.211) Patient smoked a xclp-ind-toi for 45 years. She has been abstinent [...] cigaret taiwo, in remission Patient smoked a meen-sfe-lzx for 45 yea rs. She has been [...] ION 07/08/24 but was hospitalized twice at [facility] and unable to complete her pre-surgical [...] DIAZ, GIANFRANCO PageDOB: 6 (59 yo F)Acc No.[id number]:07/19/2024 Progress Notes Patient: GIANFRANCO GARCIA Provider: Abdirahman Forde MD :1965 A ge:59 Y S ex:Female Date:07/19/2024 Address:[address] [place], [place] [phone] Pcp:Delta Wade Subjective: * Chief Complaints: * [...] ION 07/08/24 but was hospitalized twice at [facility] and unable to complete her pre-surgical testing. ION rescheduled for 07/22/24 -ION CT. * ROS: Juliette cain of systems of [facility] has been reviewed and scanned in by [...] 1 TABLET BY MOUTH EVERY DAY Oral Svc-LbjcqnMJKJYbpspsu-Xblidvkzqhthn 5-325 MG Tablet TAKE 1 TABLET BY [...] cigarettes, in remission Notes: Patient smoked a mlmr-tci-mxi for 45 years. She has been abstinent [...] of Natasha Forde MD on 10/04/2024 at 06:26 PM CDT Sign off status: Pending * Provider: Abdirahman Forde MD Date: 07/19/2024 Generated for Mani contreras/Moshe/Adrianitting on: 0 10/04/2024 06:26 PM CDT
--- OUTSIDE RECORDS SUMMARY | 2024-07-22 05:00 | XMS_ITS ---
Author Organization [facility] Address [address] [facility] [place] [address] Care Team Providers Care Adjunct Physics Instructor Name Role Phone Delta Wade Primary Care Provider Jose Cruz Harvey [phone] Encounters Encounter Location Date Provider Diagnosis [facility] [address] [place] [address] [place] [address] 07/22/2024 Jose Cruz Forde Plan Of Treatment No Information Progress Notes * GIANFRANCO DIAZDOB: 6 (59 yo F)Acc No.[id number]:07/22/2024 Patient: Jahaira HANNA GIANFRANCO Page Provider: Abdirahman Forde MD :1965 A ge:59 Y S ex:Female Date:07/22/2024 Address:[address] [place], [place] [phone] Pcp:Delta Wade * Electronic signature of Natasha Forde MD on 10/04/2024 at 06:28 PM CDT Sign off status: Pending * Provider: Abdirahman Forde MD Date: 07/22/2024 Generated for Printi ng/Faxing/eTransmitting on: 10/04/2024 06:28 PM CDT
--- OUTSIDE RECORDS SUMMARY | 2024-09-28 16:25 | XMS_ITS | Encounter Summary ---
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 cardiomediastinal silhouette is normal in size and contour given the AP view. The lung volumes are diminished accentuating the bronchovascular markings. Minimal linear scarring or atelectasis is present at the left lung base. No confluent airspace disease or definite pleural effusion. No pneumothorax. Surgical changes are present in the lower cervical spine. Procedure Note Tarik Aranda MD - 09/28/2024 Exam: XR CHEST PA OR AP 1 VW Date/Time of Exam: 09/28/2024 5:01 PM Reason For Exam: Shortness of Breath SOB. Diagnosis: See Reason for Exam. Findings: The cardiomediastinal silhouette is normal in size and contour given the AP view. The lung volumes are diminished accentuating the bronchovascular markings. Minimal linear scarring or atelectasis is present at the left lung base. No confluent airspace disease or definite pleural effusion. No pneumothorax. Surgical changes are present in the lower cervical spine. IMPRESSION: Low lung volumes without confluent airspace disease. Delta Botello MD DIAGNOSTIC IMAGING ORDERABLE S Final Result documented in this encounter Visit Diagnoses Diagnosis Drug-seeking behavior- Primary Other, mixed, or unspecified nondependent drug abuse, unspecified documented in this encounter Administered Medications Inactive Administered Medications - up to 3 most recent administrations Medication Order MAR Action Action Date Dose Rate Site HYDROmorphone (PF) (DILAUDID) injection 1 mg 1 mg, IM, ONE TIME ONLY, 1 dose, On Thu09/28/24 at 1730, Stat Given 09/28/2024 5:33 PM CDT 1 mg Delto id, Left documented in this encounter Active and Recently Administered Medications Times are shown in CDT. Scheduled Medication Order 09/26/2024 09/27/2024 09/28/2024 HYDROmorphone (PF) (DILAUDID) injection 1 mg (COMPLETED) 1 mg, IM, ONE TIME ONLY, 1 dose, On Thu09/28/24 at 1730, Stat 1733 (Given - Provid er: Abel Felton RN) ipratropium-albuteroL (DUONEB) 0.5 mg-3 mg(2.5 mg base)/3 mL inhalation solution 3 mL 3 mL, Inhalation, ONE TIME ONLY RESPIRATORY, 1 dose, On Thu09/28/24 at 1645, Routine 1645 (Due) LORazepam (ATIVAN) 2 mg/mL injection 1 mg 1 mg, IV, ONE TIME ONLY, 1 dose, On Thu09/28/24 at 1645, Routine 1733 (Refused - Prov ider: Abel Felton RN) documented in this encounter Additional Health Concerns Active Problems Noted Date Diagnosed Date Heart Failure Problem 05/12/2024 documented as of this encounter Care Teams Milling Operator Relationship Specialty Start Date End Date Delta Wade MD [address] [address] PCP - General Family Practice 03/25/24 documented as of this encounter
--- OUTSIDE RECORDS SUMMARY | 2024-10-01 14:44 | XMS_ITS | Encounter Summary ---
Author Organization [facility] Address [address] [place] [address] Care Team Providers Care Control Board Operator Name Role Phone Delta Wade MD Primary Care Provider [phone] Reason for Referral * Eval and Treat (8-30 Days) - Open Specialty Diagnoses / Procedures Referred By Marcelle smith Referred To Contact Cardiology Diagnoses Chest pain, unspecified type Procedures MD OFFICE/OUTPATIENT ESTABLISHED MOD MDM 30 MIN MD OFFICE/OUTPATIENT NEW MODERATE MDM 45 MINUTES Li Box MD [address] [place] [phone] Phone: tel: fax: Raúl Rod MD [address] [place] [phone] Phone: tel: fax: Referral ID Status Reason Start Date Expiration Date Visits Re quested Visits Authorized [id number] Open 10/03/2024 10/03/2025 1 1 Reason for Visit * Auth/Cert (Routine) Specialty Diagnoses / Procedures Referred By Marcelle smith Referred To Contact Cardiology Diagnoses Unstable angina Huy Ornelas MD [address] [place] [phone] Phone: tel: fax: [facility] [address]iac [address] [place] [phone] Phone: tel: fax: Referral ID Status Reason Start Date Expiration Date Visits Re quested Visits Authorized [id number] 1 1 Encounter Details Date Type Department Care Team (Latest Contact Info) Description 10/01/2024 2:44 PM CDT - 10/03/2024 1:00 PM CDT Hospital Encounter [facility] [address] Cardiac [address] [place] [phone] [place] [address] [place] [phone] Stefanie Ferrara MD [address] [place] [phone] Sasha Juan MD [address] [place] [phone] Li Box MD [address] [place] [phone] Chest pain Discharge Disposition: Home or Self Care Social [...] How often do you attend chur or taoism services? More than 4 times per year [...] who hurts you emotionally and/or physically? 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 Gender Identity Not on file Sexual Orientation Not on file documented as of this encounter Last Filed Vital Signs Vital Sign Reading Time Taken Comments Blood Pressure 107/81 10/03/2024 12:13 PM CDT Pulse 85 10/03/2024 12:13 PM CDT Temperature 36.7 C (98.1 F) 10/03/2024 12:13 PM CDT Respiratory Rate 18 10/03/2024 12:1 3 PM CDT Oxygen Saturation 99% 10/03/2024 12: 13 PM CDT Inhaled Oxygen Concentration - - Weight 100.3 kg (221 lb 0.6 oz) 10/03/2024 1:57 AM CDT Height 162.6 cm (5' 4 ) 10/01/2024 3:09 PM CDT Body Mass Index 37.94 10/01/2024 3:09 PM CDT documented in this encounter Discharge Summaries * Li Box MD - 10/03/2024 4:23 PM [facility]T [facility] Le Diaz 59 y.o. female 1965 CSN: [id number] Date of Admission: 10/01/2024 Date of Discharge: 10/03/2024 LOS: 2 days Discharging Physician: Li Anderson MD PCP: Delta Wade MD Code Status at Discharge: Prior Dispo: Home Labs and studies from this hospitalization needing follow up: Comprehensive Metabolic Panel (CMP) and PT/INR in 3 days CMP in 5 to 7 days Abnormal Imaging: NMST Impression: 1. Myocardial perfusion images demonstrate a moderate size, mildly intense mostly fixed defect in the inferolateral wall associated with hypokinesis consistent with prior infarct. No reversible defects are noted. 2. Mildly reduced global myocardial blood flow reserve (MBFR) at 1.97. 3. Reducedleft ventricular systolic function, LVEF at rest is 35%, rising to 39% at peak stress. 4. TID ratio is 1.11. This is normal. 5. No prior study available for direct comparison. Follow up with PCP: Follow- up: You must follow up with Delta Wade MD in 3-5 days Follow up with Consultants: Cardiology in 6 weeks Future Appointments Date Time Provider Department Center 10/06/2024 4:00 PM Cristian Metcalf FNP MCpulmASC [facility] 10/11/2024 2:30 PM Jerson Salas PA mcNeuroSumanish [facility] 01/12/2025 1:40 PM Tresa Stockton, CLINICAL STATISTICAL PROGRAMMER [facility] HrtHosClinic Discharge Condition: stable Primary Discharge Diagnosis: Chest pain unclear etiology - suspected chronic pain syndrome of unclear etiology Other Active medical issues also addressed during this admission: Active Hospital Problems Diagnosis Chronic combined systolic and diastolic heart failure (CMS/HCC) Mixed hyperlipidemia Chest pain CAD (coronary atherosclerotic disease) Morbid obesity due to excess calories (CMS/HCC) Chronic hypoxic respiratory failure (CMS/HCC) History of pulmonary embolism Type 2 diabetes mellitus without complication, without long-term current use of insulin ([facility]) Chronic pain syndrome GERD (gastroesophageal reflux disease) Bipolar affective disorder ([facility]) Hypertension Resolved Hospital Problems No resolved problems to display. HOSPITAL COURSE: Please see H and P for full details on admission, symptoms and initial care. Le Diaz is a 59 y.o. female who is being admitted for further evaluation of chest pain. She has a past medical history of CAD, COPD, chronic hypoxic respiratory failure on 3 L nasal cannula, hypertension, hyperlipidemia, mood disorder, combined CHF, PE on anticoagulation, IDDM, chronic pain syndrome, GERD, morbid obesity. Patient presented to outside facility complaining of chest pain and had taken 3 nitro without much improvement. She received additional nitro and aspirin from EMS. Patient reported feeling similar chest pain to the time when she had a heart attack in the past. Her chest pain was located central and radiated to the right arm and down the middle part of her back alongwith increased shortness of breath. She had CT chest abdomen pelvis which was unremarkable, EKG without any acute ischemic changes, troponins were unremarkable. She is being transferred to [facility] for cardiology evaluation and higher level of care. 10/02: 3L baseline, c/o back pain from her prior compression fracture. Appreciate cardiology plan for stress test tomorrow, currently on heparin gtt. started on admit. Chart reviewed-multiple admits in the last few months 10/03: NMST showed no reversible defect but EF of 35%. Discussed with cardiology Dr. Olsen-cleared for discharge, her recent TTE 06/2024 showed stable EF 50%. They added low-dose Toprol, Entresto and Jardiance-and recommend close follow-up with PCP with repeat CMP in 1 week for further GDMT. Titrationand follow-up with cardiology in 6 weeks Her INR still low, restart Coumadin home dose: Close follow-up with PCP with repeat INR in 3 days for further dose adjustments. She self reports she does not have any pain today, me and RN made her walk today, she is ambulatingherself with no support, feels ready to go home She is at risk for readmit A&P: Atypical chest pain: Hx of CAD s/p stents: Watch on telemetry Troponin trend very flat Currently on heparin gtt. Appreciate cardiology-plan for NMST today Resume home dose Imdur, Ranexa, aspirin, statin - Noted patient admitted multiple times for chest pain evaluation/unable to follow-up outpatient for further evaluation -Cardiology cleared for discharge with outpatient follow-up with them, started on GDMT therapy today Atrial flutter on chronic anticoagulation: Appear not on any home anticoagulation Currently Coumadin held for possible procedures-follow daily INR Currently on heparin gtt.> Coumadin on discharge Chronic diastolic CHF with mildly reduced EF: Appears stable Resume home dose p.o. Lasix Hx of fall with acute L1 compression fracture in 07/2024: On prior admit noted neurosurgery recommended outpatient MRI spine with kyphoplasty evaluation given elevated INR - Resume TLSO brace - Continue pain medications -currently on tizanidine, Percocet, added lidocaine patches PCP COMMUNICATION : Delta Wade MD via [employer] communication MEDICATION CHANGES (significant): MEDICATION RECONCILIATION: Current and discharge medications reviewed and reconciled: Yes Consultants: IP CONSULT TO IV TEAM IP CONSULT TO IV TEAM Procedures performed: 10/04 219 Note By: Jaun West, MARICARMEN 10/02 738 Note By: Tasha Glynn, ASSEMBLER TRUCK TRAILER MEDICATIONS: Medication List START taking these medications empagliflozin 10 mg tablet Commonly known as: JARDIANCE Take 1 Tablet (10 mg) by mouth daily in the morning. Start taking on: October 04, 2024 Signed by: Dr. Pio Anderson Quantity: 30 Tablet Refills: 0 Lidocaine 4 % Adhesive Patch, Medicated Back pain Start taking on: October 04, 2024 Signed by: Dr. Pio Anderson Quantity: 6 Patch Refills: 0 metoprolol succinate 25 mg Extended Release 24 hour tablet Commonly known as: TOPROL XL Take 1 Tablet (25 mg) by mouth daily. Signed by: Dr. Pio Anderson Quantity: 30 Tablet Refills: 0 sacubitriL-valsartan 24-26 mg Tablet Commonly known as: ENTRESTO Take 1 Tablet by mouth 2 times daily. Signed by: Dr. Pio Anderson Quantity: 60 Tablet Refills: 0 CONTINUE taking these medications amLODIPine 2.5 mg [...] Myron Burk Quantity: 1 Each Refills: 0 bjemhrxirr-kpwpdhmsqbimfo-givdlyenln 160-9-4.8 mcg/actuation HFA Aerosol Inhaler Commonly known [...] 20 Tablet Refills: 0 naloxone 4 mg/spray [place], Non-Aerosol Commonly known as: NARCAN EMERGENCY USE [...] x 1/2 Needle USE directed with Victoza. Refills: 0 Generic drug: Insulin [place] (Disposable) tiZANidine 2 mg Tablet Commonly known [...] 1 Tablet by mouth daily. Refills: 0 Where to Get Your Medications These medications were sent to [facility]/pharmacy #[id number] - [place], [place] - [address] [facility] [address] [facility] [address] [address] Hours: M-F [phone] Sat [id number] Sun closed empagliflozin 10 mg tablet metoprolol succinate 25 mg Extended Release 24 hour tablet sacubitriL-valsartan 24-26 mg Tablet Information about where to get these medications is not yet available Ask your nurse or doctor about these medications Lidocaine 4 % Adhesive Patch, Medicated Future Appointments Date Time Provider Department Center 10/06/2024 4:00 PM Cristian Metcalf FNP [facility]pulmASC [facility] 10/11/2024 2:30 PM Jerson Saals PA mcNeuroSurg [facility] 01/12/2025 1:40 PM Tresa Stockton FNP [facility] HrtHosClinic Activity level: up as tolerated Diet: No diet orders on file Wound Care: Not Applicable DISCHARGE EXAM: BP 107/81 (BP Location: Right arm, Patient Position (BP): Supine) Pulse 85 Temp 98.1 ??F (36.7 ??C) (Temporal) Resp 18 Ht 5' 4 (1.626 m) Wt 100.3 kg (221 lb 0.6 oz) SpO2 99% BMI 37.94 kg/m?? Last documented weight: Weight: 100.3 kg (221 lb 0.6 oz) (10/03/24 0157) General: alert, in no distress Neurologic: Grossly normal HEENT: atraumatic, Normocephalic, without obvious abnormality Lungs: clear to auscultation bilaterally, normal respiratory effort Heart: normal rate, regular rhythm, normal S1, S2, no murmurs, rubs, clicks or gallops Abdomen: Soft, non-tender. Bowel sounds normal. No masses, no organomegaly. Extremities: extremities normal, atraumatic, no cyanosis or edema, intact distal pulses, moves all extremities equally, no edema, redness or tenderness in the calves or thighs, normal strength, normal tone Skin: negative Home Healthcare Is this patient being discharged with Home Health? No Total time spent on discharge services today including examining and educating the patient and available family members, writing prescriptions and reviewing the discharge medication list, documentingthis discharge summary and coordinating outpatient care and follow up required >30 minutes. documented in this encounter Discharge Instructions * Discharge Instructions* Taryn Garnica LPN - 10/03/2024 11:59 AM CDT MEDICAL DISCHARGE RECORD DIET: regular and Diabetic diet (specify calories / restrictions) ACTIVITY: Your activity level is: no smoking. If you smoke you are advised to quit. Ask your health care provider for advice if you need assistance to stop smoking. Avoid second-hand smoke exposure and do not let people smoke in your home. You may return to work/school. SIGNS AND SYMPTOMS TO REPORT: Contact your health care provider if you experience any of the following symptoms: any numbness or tingling, increased dizziness or lightheadedness, or increase in pain. STOP SMOKING AND/OR DO NOT ALLOW ANYONE TO SMOKE IN YOUR HOUSE OR CAR. If you need help to stop smoking, call or the Health Information Team at [phone] or [phone]. FOLLOW-UP APPOINTMENT: Follow up with PCP with CMP/INR in 5 days - cardiology added new medication regiment on discharge Prescriptions given? Yes cardiology clinic within [address] Olsen Thank you for allowing us to care [...] feedback and look forwardto hearing from you. [facility], Staff [phone] * Attachments The following attachments cannot be sent through Care Everywhere. * Chest Pain (Honduran) * Metoprolol (Honduran) * Valsartan and Sacubitril (Honduran) documented in this encounter Medications at Time of Discharge Lidocaine 4 % Adhesive Patch, Medicated Back pain 6 Patch 10/04/2024 empagliflozin (JARDIANCE) 10 mg tablet Take 1 Tablet (10 mg) by mouth daily in the morning. 30 Tablet 10/04/2024 metoprolol succinate (TOPROL XL) 25 mg Extended Release 24 hour tablet Take 1 Tablet (25 mg) by mouth daily. 30 Tablet 10/03/2024 sacubitriL-valsar sahni (ENTRESTO) 24-26 mg Tablet Take 1 Tablet by mouth 2 times daily. 60 Tablet 10/03/2024 furosemide (LASIX) 40 mg tablet Take 1 [...] obstructive pulmonary disease, unspecified COPD type ([facility]),Oxygen dependent Face to Face completed within 30 days: yes Length of Need: 99 months By: Nasal Cannula Continuously at 3 L/min. 1 Each 08/27/2023 TechLITE Pen Needle 29 gauge x 1/2 Needle USE directed with Victoza. 12/29/2022 naloxone (NARCAN) 4 mg/spray [place], Non-Aerosol EMERGENCY USE ONLY: Administer 1 spray (4 mg) in one nostril one time. May repeat in alternating nostrils every 2-3 min until responsive or EMS arrives. 2 Each 3 01/06/2023 blood sugar diagnostic StripIndications: Type 2 diabetes mellitus without complication, without long-term current use of insulin ([facility]) Use to test blood glucose up to QID PRN symptoms. 100 Each 11 12/17/2022 OneTouch Delica Plus Lancet 30 gauge USE TO test fasting blood glucose DAILY 11/04/2022 Blood-Glucose Meter KitIndications:Ty pe 2 diabetes mellitus without complication, without long-term current use of insulin ([facility]) Use to test blood glucose up to TID PRN symptoms. 1 Each 12/02/2022 documented as of this encounter Progress Notes * Jose Sheffield, Physical Therapist - 10/03/2024 2:36 PM CDT [facility]K Ph. Acute Physical Therapy Evaluation 10/03/2024 Room: [address] [place] [address] Name: Le Diaz Age: 59 y.o. Date of : 1965 Insurance: Payor: MEDICAID / Plan: [place] / Product Type: Medicaid / Patient Class: Inpatient Onset of illness/injury or date of surgery: 10/01/2024 Subjective Information/History Subjective Information Provided By: Patient Prior level of Function: patient is normally independent with all mobility with a 4WW Patient does not report a history of falls Home Environment: 1-Story home Available Adaptive Equipment: Walkers: 4 wheeled Assistance available: lives with friends and has 13/10 assist Patient/Family Goals Statement: I would like to get stronger Pain: Refer to Doc Flowsheet for documented pain levels. Consent To Treatment Given By: Patient and Nurse Safety Awareness Orientation: Person, Place, Date, and Situation Command following: good Safety Awareness: Good Precautions Patient Precautions: Fall Risk and Oxygen Bracing/Orthotics: none Weight Bearing: No Restrictions Objective Information/Examination Muscle Tone: Normal Coordination: Normal Sensation: Intact to light touch ROM: Right UE: Active: WFL Left UE: Active: WFL Right LE: Active: WFL Left LE: Active: WFL Strength: Right UE: WFL Left UE: WFL Right LE: WFL Left LE: WFL Functional Mobility: Rolling: Independent Scooting: Independent Supine to sit: Independent Sit to supine: Independent Sit to stand: Independent Bed to chair: modified Independent with walker Gait Trainin feet with rolling walker. modified Independent for n/a. Deficits affecting function/Deviations noted: n/a Patient required verbal cues energy conservation Balance: Sitting: Normal Standing: Normal with walker Vitals Patient on room air Vital signs stable throughout session [facility] AM-PAC Basic Mobility How much help from another person does the patient currently need? Score 1. Turning from your back to your side while in a flat bed without using bedrails? 4 - None (independent) 2. Moving from lying on your back to sitting on the side of a flat bed without using bedrails? 4 - None (independent) 3. Moving to and from a bed to a chair (including a wheelchair)? 4 - None (independent) 4. Standing up from a chair using your arms (e.g., wheelchair, or bedside chair)? 4 - None (independent) 5. Walking in hospital room? 4 - None (independent) 6. Climbing 3-5 steps with a railing? 4 - None (independent) Total score 0-16 - indicates likely facility discharge 17-24 indicates likely community discharge * scores determined based on patient report, observation or professional expertise Assessment/Plan Le Diaz is a 59 y.o. female is referred for physical therapy. Based on objective findings above, the patient does not present with deficits sufficient to require skilled acute physical therapyintervention at this time. Patient is currently functioning at her prior level of function. PT Evaluation: medium complexity Recommendations Therapy Frequency: eval only, no further skilled acute PT services (Complete Order) Based on PT assessment of and/or progress with physical function and AM-PAC Basic Mobility score, anticipated discharge disposition, once medically ready: Home with assistance (10/03/24 143). Patient's at functional baseline. * The final discharge location is determined through physician, case management, and patient/caregiver input along with insurance authorization of skilled services when appropriate Plan of care and/or discharge recommendations shared with: Patient, Logistics Project Manager, and Nurse PT Recommended DME: No new DME recommended (10/03/241434). Daily activity recommendations: Up ad cesario Recommendations for referral to another service: none Education/Training Provided Additional education provided: plan of care Learner, method of education, and response to learning listed in Education tab in Epic. Disposition At start of session, patient found sitting in chair At end of session, patient left seated in chair, call light in reach, and phone in reach Current Diagnoses/Past Medical History Pertinent diagnoses and past medical history related to this hospital stay are present in physicianH&P and physician daily notes. Prior to PT session a thorough chart review was completed including prior PT notes as applicable. Thank you for this referral, Jose Sheffield, Physical Therapist * Nica Lombardi Occupational Therapist - 10/03/2024 10:38 AM CDT [facility] Ph. Acute Occupational Therapy Evaluation 10/03/2024 Room: [address] [place] [address] Name: Le Diaz Age: 59 y.o. Patient Class: Inpatient Date of : 1965 Insurance: Payor: MEDICAID / Plan: [place] / Product Type: Medicaid / Prior to OT session thorough chart review completed, including prior OT notes as applicable. Consent to evaluate provided by patient and nurse Date of admission: 10/01/2024 SUBJECTIVE Occupational Profile Information provided by: patient and chart Prior Level of Function ADLs: assistance needed for lower body dressing (socks and briefs) IADLs: independent Patient does not drive Functional mobility: modified independent using 4WW Falls: Pt reports~10 falls in the past 6 months Home Information Employment/daily routine: ADLs, IADLs and enjoys cooking Self-care assist available at home: Pt lives with two friends that assist when needed Home environment: 1-level home 6 step(s) to enter Walk-in shower Durable medical equipment already in home: Walkers: 4WW Hand-held shower head Digital Media Intern Sock aid Home O2- 3L/min Additional Information Patient/family statement/goal(s): Get stronger Comments: Pt seated in chair upon entry. Agreeable to therapy. Pain: Refer to flowsheet for documentation of pain and interventions. OBJECTIVE Cognition Level of alertness: alert Orientation: x4 WNL Command following: fair Safety awareness: fair; limited by impulsivity, slow processing, decreased problem solving, and decreased insight into deficits Memory: WFL conversationally Vision: denies acute changes UE Function Right-hand dominant UE Assessment Right Left ROM Active: WFL Active: WFL Strength Not formally manual muscle tested; strength is adequate for functional tasks Not formally manual muscle tested; strength is adequate for functional tasks All additional UE assessments (including tone, coordination, sensation, and edema) not indicated ordeemed WFL. Occupational Performance Activities of Daily Living Feeding: independent for jjtu-oa-qvats excursion Grooming: supervision seated in chair to comb hair Upper extremity dressing: independent to don hospital gown Lower extremity dressing: maximal assistance to don/doff hospital socks Toileting: NT; anticipate minimal assistance on toilet for clothing management Toilet transfer: NT; anticipate independent sit < > stand from toilet All tasks not tested with anticipated assist levels are based on observed tasks and movement patterns. Functional Mobility ; decreased activity tolerance All mobility completed with gait belt, non-skid socks, and walker Bed mobility: NT; anticipate independent supine < > sit EOB Sit to stand: independent from chair Functional ambulation: modified independent x 20 feet using 2WW [employer] AM-PAC Daily Activity How much help from another person does the patient currently need? Score 1. Putting on and taking off regular lower body clothing? 2 - A lot (max to mod assist) 2. Bathing (including washing, rinsing, drying)? 3 - A little (supervision to min assist) 3. Toileting, which includes using toilet, bedpan or urinal? 3 - A little (supervision to min assist) 4. Putting on and taking off regular upper body clothing? 4 - None (independent) 5. Taking care of personal grooming such as brushing teeth? 3 - A little (supervision to min assist) 6. Eating meals? 4 - None (independent) Total score 19 0-19 indicates likely facility discharge 19-24 indicates likely community discharge *Scores determined based on patient report, observation or professional expertise* Vitals Current O2 requirement: 2 L/min via nasal cannula Vital signs stable throughout. Precautions Patient precautions: fall, oxygen, and bleeding Patient bracing: none Weight bearing: no restrictions ASSESSMENT & PLAN Evaluation Details Le Diaz is a 59 y.o. female referred for OT following admission for chest pain. Additional pertinent diagnoses and past medical history related to this hospital stay are present in physician H&P and physician daily notes. OT evaluation: Moderate complexity Assessment Patient is currently functioning at her prior level of function. Patient does not require acute OT to address these deficits as these deficits are present at baseline with adequate support/resources currently in place. Patient/family deny additional questions regarding ADLs and home safety. See discharge recommendations below Plan Evaluation only with no further acute OT services indicated (order completed) Recommendations Based on OT assessment of patient's ability to complete self care tasks and AM- PAC Daily Activity Score, anticipated discharge disposition, once medically ready: Home with assistance (10/03/24 1038). Rationale: Safety concerns present. * The final discharge location is determined through physician,case management, and patient/caregiver input along with insurance authorization of skilled serviceswhen appropriate. Plan of care and discharge recommendations shared with patient, healthcare associate, and PT OT recommended DME and AE upon discharge: No new DME recommended (10/03/24 1038) No new additional adaptive equipment necessary (10/03/24 1038) Education provided to patient regarding OT recommendations and plan of care, ADL training, functional mobility/ transfers, home safety, fall prevention, Education response: verbalized understanding Nursing Staff Mobility Recommendations Recommended daily activity during admission: up with supervision using 2WW and up to chair for meals Disposition At start of session, patient found seated in chair At end of session, patient left seated in chair, call light in reach, phone in reach, patient instructed not to get up without staff assistance, and staff notified of patient location/events of session Further treatment notes and therapeutic goals can be found in Care Plan Notes. If the patient discharges from facility before another therapy visit, this shall serve as therapy discharge summary. Thank you for this referral, Danae Rowe, Student Therapist Patient seen under direct supervision, agree with above documentation and associated education. LISA Thao (Zify chat to contact) * Raúl Rod MD - 10/03/2024 8:07 AM CDT Images from the original note were not included. Cardiology Progress note: LOS: LOS: 2 days Patient name: Le Diaz. [id number] Date of : 1965 4111/ Subjective: No acute cardiac issues overnight per the nursing staff. Physical Exam: BP 128/70 (BP Location: Right arm, Patient Position (BP): Sitting) Pulse 84 Temp 98 ??F (36.7 ??C) (Temporal) Resp 22 Ht 5' 4 (1.626 m) Wt 100.3 kg (221 lb 0.6 oz) SpO2 96% BMI 37.94 kg/m?? Gen: NAD; Alert and oriented, no acute distress HEENT: Normocephalic atraumatic CV: RRR, 1/6 systolic murmur present in precordium, audible s1/s2 Chest: CTAB, non-labored respiration Ext: Trace edema Past Medical History: Past Medical History: Diagnosis Date Anxiety [...] smear Hyperlipidemia Ischemic cardiomyopathy Lower extremity edema [place] (myocardial infarction) (CMS/HCC) 2015 Neuropathy NSTEMI (non-ST elevated myocardial infarction) (CMS/HCC) 06/06/2023 No stents placed at this time NSTEMI (non-ST elevated myocardial infarction) (CMS/HCC) Paroxysmal A-fib (CMS/HCC) Paroxysmal atrial tachycardia Pneumonia due to COVID-19 virus Polycythemia Primary hereditary hemochromatosis 12/13/2010 Unspecified essential hypertension Vaginal cancer (CMS/HCC) 2019 s/p radiation (end 11/2019) and Cisplatin (chemo) (end 08/2019) tumor non- resectable . Past Surgical History: Past Surgical History: Procedure Laterality Date ENDOSCOPY, COLON, DIAGNOSTIC HX APPENDECTOMY HX BLADDER SUSPENSION Bladder Suspension HX ESOPHAGOGASTRODUODENOSCOPY N/A 03/19/2024 ESOPHAGOGASTRODUODENOSCOPY performed by Mikey Moon MD at [facility] MAIN OR HX MASTECTOMY Right no lymph node removal HX PTCA stents (x3 in 2015, x2 in 2018) HX SPINAL SURGERY 2004 C4-5 fusion at [place], [place] HX SURGICAL OTHER 1984 vaginal reconstruction HX TONSILLECTOMY HX 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 MD CATH PLMT L HRT & ARTS W/NJX & ANGIO IMG S&I N/A 03/21/2024 Left heart cath performed by Kyler Helm MD at [facility] INVASIVE CARDIOLOGY MD CATH PLMT L HRT & ARTS W/NJX & ANGIO IMG S&I N/A 03/21/2024 Left Ventriculogram performed by Kyler Helm MD at [facility] INVASIVE CARDIOLOGY MD COLONOSCOPY FLX DX W/COLLJ SPEC WHEN PFRMD 01/23/2011 COLONOSCOPY performed by MACK BISWAS at [facility] ENDOSCOPY MD COLONOSCOPY FLX DX W/COLLJ SPEC WHEN PFRMD 09/19/2010 COLONOSCOPY performed by MACK BISWAS at [facility] ENDOSCOPY MD CORRECTION HAMMERTOE Left 07/20/2024 TOE(S) ARTHROPLASTY performed by Tereso Gil DPM at [facility] MAIN OR MD EXPL PENETRATING WOUND SPX ABDOMEN/FLANK/BACK N/A 05/30/2023 LAPAROTOMY EXPLORATORY performed by Jose Cruz Montero DO at [facility] OR MD INJ SUBSTITUTE PARS PLANA/LIMBL W/WO ASPIR SPX Right 03/30/2024 EYE AIR FLUID GAS EXCHANGE performed by Eduardo Craven MD at [facility] SURGERY GREAT [employer]K NATIONAL MD RPR RPTD SPLEEN SPLENORRHAPHY W/WO PRTL SPLENECT N/A 05/30/2023 SPLENECTOMY performed by Jose Cruz Montero DO at [facility] OR MD VITRECTOMY [facility] PARS PLNA FOCAL ENDOLASER PC Right 03/30/2024 PARS PLANA VITRECTOMY WITH LASER performed by Eduardo Craven MD at [facility] SURGERY [facility] Allergies: Allergies Allergen Reactions Ketorolac Tromethamine Hives Prochlorperazine Hives and Seizure Propoxyphene Nausea and Vomiting Tramadol Hives Codeine Itching Propoxyphene N-Acetaminophen Nausea and Vomiting Current Medications: Current Facility-Administered Medications Medication Dose Route Frequency Provider Last Rate Last Admin [COMPLETED] heparin injection 2,200 Units 30 Units/kg (Adjusted) IV ONE time only Sasha Juan MD 2,200 Units at 10/03/24 0347 [COMPLETED] regadenoson (LEXISCAN) 0.4 mg/5 mL injection 0.4 mg IV intra-proc ONE time Howie Sweeney MD 0.4 mg at 10/03/24 0822 [COMPLETED] sodium chloride flush injection 20 mL 20 mL IV intra-proc ONE time Howie Sweeney MD 20 mL at 10/03/24 0822 sodium chloride flush injection 10 mL 10 mL IV intra-proc ONE time Howie Sweeney MD [START ON 10/04/2024] empagliflozin (JARDIANCE) tablet 10 mg 10 mg Oral daily EARLY Raúl Rod MD sacubitriL-valsartan (ENTRESTO) 24-26 mg tablet 1 Tablet 1 Tablet Oral BID Raúl Rod MD metoprolol succinate (TOPROL XL) SR 24 hour tablet 25 mg 25 mg Oral daily Raúl Rod MD sodium chloride flush injection 5 mL 5 mL IV every 12 hours Stefanie Ferrara MD 20 mL at 10/03/24 0758 sodium chloride flush injection 5 mL 5 mL IV see admin instructions Stefanie Ferrara MD Lidocaine 4 % topical patch 1 Patch 1 Patch Topical daily Li Box MD cyclobenzaprine (FLEXERIL) tablet 5 mg 5 mg Oral TID PRN Li Box MD 5 mg at 10/02/24 2223 ipratropium-albuteroL (DUONEB) 0.5 mg-3 mg(2.5 mg base)/3 mL inhalation solution 3 mL 3 mL Inhalation resp, 3 times daily Li Box MD [DISCONTINUED] ipratropium-albuteroL (DUONEB) 0.5 mg-3 mg(2.5 mg base)/3 mL inhalation solution 3 mL 3 mL Inhalation resp, every 6 hours Li Box MD LORazepam (ATIVAN) tablet 0.5 mg 0.5 mg Oral every 8 hours PRN Stefanie Ferrara MD 0.5 mg at 10/02/24 2129 oxyCODONE-acetaminophen (PERCOCET) 5-325 mg per tablet 1 Tablet 1 Tablet Oral every 6 hours PRN Stefanie Ferrara MD 1 Tablet at 10/03/24 0737 aspirin (CARTER CHEWABLE) chewable tablet 81 mg 81 mg Oral daily Stefanie Ferrara MD 81 mg at 10/03/24 0918 [Held by Provider] warfarin (COUMADIN) tablet 10 mg 10 mg Oral daily Stefanie Ferrara MD amLODIPine (NORVASC) tablet 2.5 mg 2.5 mg Oral daily LATE Stefanie Ferrara MD 2.5 mg at 10/02/24 1744 atorvastatin (LIPITOR) tablet 40 mg 40 mg Oral daily BEDTIME Stefanie Ferrara MD 40 mg at 10/02/242045 furosemide (LASIX) tablet 40 mg 40 mg Oral daily Stefanie Ferrara MD 40 mg at 10/03/24917 isosorbide mononitrate (IMDUR) SR 24 hour tablet 30 mg 30 mg Oral daily Stefanie Ferrara MD 30 mg at 10/03/24917 nitroglycerin (NITROSTAT) tablet 0.4 mg 0.4 mg Sublingual every 5 minutes PRN Stefanie Ferrara MD 0.4 mg at 10/02/24 193 ranolazine ER (RANEXA) SR 12 hour tablet 500 mg 500 mg Oral every 12 hours Stefanie Ferrara MD 500 mg at 10/03/24918 insulin glargine (LANTUS) injection 25 Units 25 Units subCUT daily BEDTIME Stefanie Ferrara MD 25 Units at 10/02/242122 fluticasone furoate-vilanteroL (BREO ELLIPTA) 100-25 mcg/dose inhaler 1 Puff 1 Puff Inhalation resp, daily Stefanie Ferrara MD 1 Puff at 10/03/24916 albuterol sulfate 90 mcg/Actuation inhaler 2 Puff 2 Puff Inhalation resp, every 6 hours PRN Stefanie Ferrara MD buPROPion HCL (WELLBUTRIN XL) 24 hour tablet 300 mg 300 mg Oral daily Stefanie Ferrara MD 300 mg at 10/03/24917 FLUoxetine (PROzac) capsule 40 mg 40 mg Oral daily BEDTIME Stefanie Ferrara MD 40 mg at 10/02/242045 OLANZapine (ZyPREXA) tablet 10 mg 10 mg Oral daily BEDTIME Stefanie Ferrara MD 10 mg at 10/02/242045 tiZANidine (ZANAFLEX) tablet 2 mg 2 mg Oral every 8 hours PRN Stefanie Ferrara MD heparin in 0.45% NaCl 25,000 unit/250 mL infusion 16 Units/kg/hr IV titrate Sasha Juan MD 16 mL/hr at 10/03/24 09 16 Units/kg/hr at 10/03/24 0907 sodium chloride flush injection 10 mL 10 mL IV every 12 hours (2 times daily) Stefanie Ferrara MD 10 mL at 10/03/24 0920 sodium chloride flush injection 10 mL 10 mL IV see admin instructions Stefanie Ferrara MD 10 mL at 10/01/242021 sodium chloride 0.9 % flush bag 25 mL 25 mL IV see admin instructions Stefanie Ferrara MD dextrose 5 % in water 250 mL flush bag 25 mL 25 mL IV see admin instructions Stefanie Ferrara MD naloxone (NARCAN) 0.4 mg/mL injection 0.1-0.4 mg 0.1-0.4 mg IV see admin instructions Stefanie Ferrara MD ondansetron (ZOFRAN ODT) tablet 4 mg 4 mg Oral every 6 hours PRN Stefanie Ferrara MD dextrose 5 % - sodium chloride 0.9 % infusion IV see admin instructions Stefanie Ferrara MD dextrose 50% (D50) syringe 12.5 Gram 12.5 Gram IV see admin instructions Stefanie Ferrara MD dextrose 50% (D50) syringe 25 Gram 25 Gram IV see admin instructions Stefanie Ferrara MD glucagon HCL 1 mg/mL injection 1 mg 1 mg IM see admin instructions Stefanie Ferrara MD insulin lispro (HumaLOG,ADMELOG) injection 0-6 Units 0-6 Units subCUT TID WITH meals Stefanie Ferrara MD 3 Units at 10/03/24 1123 umeclidinium (INCRUSE ELLIPTA) 62.5 mcg/actuation inhaler 1 Puff 1 Puff Inhalation resp, daily Stefanie Ferrara MD 1 Puff at 10/03/24 0917 Current Facility-Administered Medications Medication sodium chloride flush injection 10 mL [START ON 10/04/2024] empagliflozin (JARDIANCE) tablet 10 mg sacubitriL-valsartan (ENTRESTO) 24-26 mg tablet 1 Tablet metoprolol succinate (TOPROL XL) SR 24 hour tablet 25 mg sodium chloride flush injection 5 mL sodium chloride flush injection 5 mL Lidocaine 4 % topical patch 1 Patch cyclobenzaprine (FLEXERIL) tablet 5 mg ipratropium-albuteroL (DUONEB) 0.5 mg-3 mg(2.5 mg base)/3 mL inhalation solution 3 mL LORazepam (ATIVAN) tablet 0.5 mg oxyCODONE-acetaminophen (PERCOCET) 5-325 mg per tablet 1 Tablet aspirin (CARTER CHEWABLE) chewable tablet 81 mg [Held by Provider] warfarin (COUMADIN) tablet 10 mg amLODIPine (NORVASC) tablet 2.5 mg atorvastatin (LIPITOR) tablet 40 mg furosemide (LASIX) tablet 40 mg isosorbide mononitrate (IMDUR) SR 24 hour tablet 30 mg nitroglycerin (NITROSTAT) tablet 0.4 mg ranolazine ER (RANEXA) SR 12 hour tablet 500 mg insulin glargine (LANTUS) injection 25 Units fluticasone furoate-vilanteroL (BREO ELLIPTA) 100-25 mcg/dose inhaler 1 Puff albuterol sulfate 90 mcg/Actuation inhaler 2 Puff buPROPion HCL (WELLBUTRIN XL) 24 hour tablet 300 mg FLUoxetine (PROzac) capsule 40 mg OLANZapine (ZyPREXA) tablet 10 mg tiZANidine (ZANAFLEX) tablet 2 mg heparin in 0.45% NaCl 25,000 unit/250 mL infusion sodium chloride flush injection 10 mL sodium chloride flush injection 10 mL sodium chloride 0.9 % flush bag 25 mL dextrose 5 % in water 250 mL flush bag 25 mL naloxone (NARCAN) 0.4 mg/mL injection 0.1-0.4 mg ondansetron (ZOFRAN ODT) tablet 4 mg dextrose 5 % - sodium chloride 0.9 % infusion dextrose 50% (D50) syringe 12.5 Gram dextrose 50% (D50) syringe 25 Gram glucagon HCL 1 mg/mL injection 1 mg insulin lispro (HumaLOG,ADMELOG) injection 0-6 Units umeclidinium (INCRUSE ELLIPTA) 62.5 mcg/actuation inhaler 1 Puff Consultants: IP CONSULT TO CARDIOLOGY IP CONSULT TO IV TEAM IP CONSULT TO IV TEAM OBJECTIVE: Temp (24hrs), Av.4 ??F (36.3 ??C), Min:97.2 ??F (36.2 ??C), Max:98 ??F (36.7 ??C) Intake/Output Summary (Last 24 hours) at 10/03/2024 1213 Last data filed at 10/03/2024 1212 Gross per 24 hour Intake 1900 ml Output 400 ml Net 1500 ml Last documented weight: Weight: 100.3 kg (221 lb 0.6 oz) (10/03/24 0157) LABORATORY: Recent Labs 10/01/24 1723 10/02/24 0234 WBC 6.8 7.3 HGB 10.6* 10.3* HCT 34.6* 32.1* PLT 165 144 Recent Labs 10/01/24 1723 10/02/24 0234 NA 141 141 K 4.0 3.9 CL 106 107 CO2 20* 23 CA 9.1 9.2 BUN 13 19 CREAT 0.55 0.62 GLUCOSE 322* 238* No results for input(s): TOTALPROTEIN , ALBUMIN , BILITOTAL , ALKPHOS , AST , ALT in the last 72 hours. 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: [id number] : 1965 Requested By: Order Number: [id number] Reading MD: Mana Moore Measurements Intervals Shidler Rate: 105 P: 0 MD: 140 QRS: 66 QRSD: 80 T: -17 QT: 348 QTc: 459 Interpretive Statements Ectopic atrial rhythm with occasional premature ventricular complexes Cannot rule out Inferior infarct, age undetermined Abnormal ECG Electronically Signed On 09-29-2024 16:18:09 CDT by Mana Moore ASSESSMENT AND PLAN: Primary Discharge Diagnosis: Chest pain Other Active medical issues also addressed during this admission: Active Hospital Problems Diagnosis Chest pain Chronic combined systolic and diastolic heart failure (CMS/HCC) Mixed hyperlipidemia CAD (coronary atherosclerotic disease) Morbid obesity due to excess calories (CMS/HCC) Chronic hypoxic respiratory failure (CMS/HCC) History of pulmonary embolism Type 2 diabetes mellitus without complication, without long-term current use of insulin (CMS/HCC) Chronic pain syndrome GERD (gastroesophageal reflux disease) Bipolar affective disorder (CMS/HCC) Hypertension Resolved Hospital Problems No resolved problems to display. 59-year-old female with past medical history of hypertension, hyperlipidemia, CAD status post PCI LAD RCA with recent angiogram February 2024 showing patent stents, COPD, chronic hypoxemic respiratory failure on home oxygen, history of PE, atrial flutter on chronic anticoagulation, obesity -Admitted with atypical chest pain. Started on GDMT. Nuclear stress test negative for significant ischemia. - Prior echocardiogram on 07/06/2024 with EF 50 to 55% however nuclear stress test shows EF of 35% however nuclear stress test is not the best modality for EF evaluation. HFrEF, NYHA III, ACC stage C,warm and euvolemic profile, nonischemic cardiomyopathy. Ongoing heart failure GDMT up titration. Offered patient further options of invasive versus noninvasive modalities however patient would preferto continue further workup as an outpatient. I respect her decision. Recommend repeat echocardiogram within the next few weeks. Recommend further heart failure GDMT including metoprolol succinate, Jardiance, Entresto (with repeat CMP in 3 days time), Lasix, spironolactone however will need to be started in a slow and staggered fashion and hence will request primary attending to help coordinate close outpatient follow-up with PCP clinic within 1 week of discharge for further up titration of heart failure GDMT. Patient will also need to be seen in the cardiology clinic within 6 weeks of discharge. Please call with questions. Cardiology be available on an as-needed basis. Patient to have close outpatient follow-up with PCP/cardiology clinic as requested above. Current Facility-Administered Medications Medication sodium chloride flush injection 10 mL [START ON 10/04/2024] empagliflozin (JARDIANCE) tablet 10 mg sacubitriL-valsartan (ENTRESTO) 24-26 mg tablet 1 Tablet metoprolol succinate (TOPROL XL) SR 24 hour tablet 25 mg sodium chloride flush injection 5 mL sodium chloride flush injection 5 mL Lidocaine 4 % topical patch 1 Patch cyclobenzaprine (FLEXERIL) tablet 5 mg ipratropium-albuteroL (DUONEB) 0.5 mg-3 mg(2.5 mg base)/3 mL inhalation solution 3 mL LORazepam (ATIVAN) tablet 0.5 mg oxyCODONE-acetaminophen (PERCOCET) 5-325 mg per tablet 1 Tablet aspirin (CARTER CHEWABLE) chewable tablet 81 mg [Held by Provider] warfarin (COUMADIN) tablet 10 mg amLODIPine (NORVASC) tablet 2.5 mg atorvastatin (LIPITOR) tablet 40 mg furosemide (LASIX) tablet 40 mg isosorbide mononitrate (IMDUR) SR 24 hour tablet 30 mg nitroglycerin (NITROSTAT) tablet 0.4 mg ranolazine ER (RANEXA) SR 12 hour tablet 500 mg insulin glargine (LANTUS) injection 25 Units fluticasone furoate-vilanteroL (BREO ELLIPTA) 100-25 mcg/dose inhaler 1 Puff albuterol sulfate 90 mcg/Actuation inhaler 2 Puff buPROPion HCL (WELLBUTRIN XL) 24 hour tablet 300 mg FLUoxetine (PROzac) capsule 40 mg OLANZapine (ZyPREXA) tablet 10 mg tiZANidine (ZANAFLEX) tablet 2 mg heparin in 0.45% NaCl 25,000 unit/250 mL infusion sodium chloride flush injection 10 mL sodium chloride flush injection 10 mL sodium chloride 0.9 % flush bag 25 mL dextrose 5 % in water 250 mL flush bag 25 mL naloxone (NARCAN) 0.4 mg/mL injection 0.1-0.4 mg ondansetron (ZOFRAN ODT) tablet 4 mg dextrose 5 % - sodium chloride 0.9 % infusion dextrose 50% (D50) syringe 12.5 Gram dextrose 50% (D50) syringe 25 Gram glucagon HCL 1 mg/mL injection 1 mg insulin lispro (HumaLOG,ADMELOG) injection 0-6 Units umeclidinium (INCRUSE ELLIPTA) 62.5 mcg/actuation inhaler 1 Puff I performed a history and physical examination of the patient. I had an extensive discussion with patient (and/or family member and/or surrogate/POA) about the options of medications, invasive and noninvasive procedures as recommended by current guidelines. Patient (and/or family member and/or surro gate/POA) verbalized understanding of assessment and willingness to implement the plan as describedafter understanding the risks and benefits of each. I had extensive discussion with the patient regarding emergency precautions. Assessment & plan and other portions of this note may have been copied from prior notes /templates however appropriate and necessary changes have been made to reflect patient's current medical condition, clinical course and medical decisions are being made based on guidelines and risk-benefit discussion with patient/family members and/or other providers. Portions of this document were createdthrough the use of Inter[employer]udeman[employer] floor software. Effort has been made to ensure accuracy of the corporate manager. Any obvious errors or omissions should be clarified with the author of the document. Raúl Rod MD * Li Bxo MD - 10/02/2024 4:16 PM CDT Images from the original note were not included. Your life is our life's work [facility] Hospitalist/Hospital Medicine Progress Note LOS: 1 day Room/Bed: 411/ Patient name: Le Diaz Date of : 1965 HOSPITAL COURSE SUMMARY: Le Diaz is a 59 y.o. female who is being admitted for further evaluation of chest pain. She has a past medical history of CAD, COPD, chronic hypoxic respiratory failure on 3 L nasal cannula, hypertension, hyperlipidemia, mood disorder, combined CHF, PE on anticoagulation, IDDM, chronic pain syndrome, GERD, morbid obesity. Patient presented to outside facility complaining of chest pain and had taken 3 nitro without much improvement. She received additional nitro and aspirin from EMS. Patient reported feeling similar chest pain to the time when she had a heart attack in the past. Her chest pain was located central and radiated to the right arm and down the middle part of her back alongwith increased shortness of breath. She had CT chest abdomen pelvis which was unremarkable, EKG without any acute ischemic changes, troponins were unremarkable. She is being transferred to [facility] for cardiology evaluation and higher level of care. 10/02: 3L, c/o back pain from her prior compression fracture. Appreciate cardiology plan for stress test tomorrow, currently on heparin gtt. started on admit. Chart reviewed-multiple admits in the last few months Consultants: IP CONSULT TO CARDIOLOGY IP CONSULT TO IV TEAM SUBJECTIVE: Rounded with RN Bethel Wise at bedside Reports pain all over predominantly in his back radiating to the back Discussed on cardiology recs ROS: History obtained from the patient- Psychological: No Depression, Suicide ideation/thoughts Constitutional: negative for fever, chills, negative for confusion, fatigue Pulmonary: negative for dyspnea, no cough Cardiovascular: negative for chest pain, no palpitations, no orthopnea GI: negative for nausea, vomiting, diarrhea and constipation, no abdominal pain Renal: no dysuria, no hematuria Musculoskeletal: no back pain, no joint pain, no calf swelling Neuro: negative for headache, no vision changes, no dizziness Skin: no skin rash, no redness OBJECTIVE: Temp (24hrs), Av.3 ??F (36.3 ??C), Min:96.6 ??F (35.9 ??C), Max:97.6 ??F (36.4 ??C) BP 110/59 (BP Location: Right arm, Patient Position (BP): Supine) Pulse 97 Temp 97.2 ??F (36.2 ??C) (Temporal) Resp 22 Ht 5' 4 (1.626 m) Wt 99.8 kg (220 lb) SpO2 93% BMI 37.76 kg/m?? Intake/Output Summary (Last 24 hours) at 10/02/2024 1716 Last data filed at 10/02/2024 1404 Gross per 24 hour Intake 1510 ml Output 1150 ml Net 360 ml Last documented weight: Weight: 99.8 kg (220 lb) (10/01/24 1509) EXAM: General: alert, in no distress oriented x 3 Neurologic: Grossly normal HEENT: atraumatic, Normocephalic, without obvious abnormality Lungs: Scattered wheezing Heart: normal rate, regular rhythm, normal S1, S2, no murmurs, rubs, clicks or gallops Abdomen: Soft, non-tender. Bowel sounds normal. No masses, Extremities: No pitting edema Skin: negative LABORATORY: Recent Labs 10/01/24 1723 10/02/24 0234 WBC 6.8 7.3 HGB 10.6* 10.3* HCT 34.6* 32.1* PLT 165 144 Recent Labs 10/01/24 1723 10/02/24 0234 NA 141 141 K 4.0 3.9 CL 106 107 CO2 20* 23 CA 9.1 9.2 BUN 13 19 CREAT 0.55 0.62 GLUCOSE 322* 238* No results for input(s): TOTALPROTEIN , ALBUMIN , BILITOTAL , ALKPHOS , AST , ALT in the last 72 hours. Recent Labs 10/01/24 1557 INR 1.6* PT 19.7* Recent Labs 10/02/24 0234 BASETROP 30* Diagnostic testing reviewed by me: Medications were reviewed by me. Current Facility-Administered Medications: [COMPLETED] morphine 4 mg/mL injection 2 mg, 2 mg, IV, ONE time only, Tiffanie Dawn, CLINICAL STATISTICAL PROGRAMMER, 2mg at 10/02/24 0142 sodium chloride flush injection 5 mL, 5 mL, IV, every 12 hours, Stefanie Ferrara MD, 5 mL at 10/02/24 0942 sodium chloride flush injection 5 mL, 5 mL, IV, see admin instructions, Stefanie Ferrara MD LORazepam (ATIVAN) tablet 0.5 mg, 0.5 mg, Oral, every 8 hours PRN, Stefanie Ferrara MD, 0.5 mg at 10/02/24 0111 oxyCODONE-acetaminophen (PERCOCET) 5-325 mg per tablet 1 Tablet, 1 Tablet, Oral, every 6 hours PRN,Stefanie Ferrara MD, 1 Tablet at 10/02/24 1214 aspirin (CARTER CHEWABLE) chewable tablet 81 mg, 81 mg, Oral, daily, Stefanie Ferrara MD, 81 mg at 10/02/24 0942 [Held by Provider] warfarin (COUMADIN) tablet 10 mg, 10 mg, Oral, daily, Stefanie Ferrara MD amLODIPine (NORVASC) tablet 2.5 mg, 2.5 mg, Oral, daily LATE, Stefanie Ferrara MD, 2.5 mg at 10/01/24 1750 atorvastatin (LIPITOR) tablet 40 mg, 40 mg, Oral, daily BEDTIME, Stefanie Ferrara MD, 40 mg at 10/02/24 0111 furosemide (LASIX) tablet 40 mg, 40 mg, Oral, daily, Stefanie Ferrara MD, 40 mg at 10/02/24 0942 isosorbide mononitrate (IMDUR) SR 24 hour tablet 30 mg, 30 mg, Oral, daily, Stefanie Ferrara MD, 30 mgat 10/02/24 0942 nitroglycerin (NITROSTAT) tablet 0.4 mg, 0.4 mg, Sublingual, every 5 minutes PRN, Stefanie Ferrara MD ranolazine ER (RANEXA) SR 12 hour tablet 500 mg, 500 mg, Oral, every 12 hours, Stefanie Ferrara MD, 500 mg at 10/02/24 0943 insulin glargine (LANTUS) injection 25 Units, 25 Units, subCUT, daily BEDTIME, Stefanie Ferrara MD, 25Units at 10/01/24 2100 fluticasone furoate-vilanteroL (BREO ELLIPTA) 100-25 mcg/dose inhaler 1 Puff, 1 Puff, Inhalation, resp, daily, Stefanie Ferrara MD albuterol sulfate 90 mcg/Actuation inhaler 2 Puff, 2 Puff, Inhalation, resp, every 6 hours PRN, Stefanie Ferrara MD buPROPion HCL (WELLBUTRIN XL) 24 hour tablet 300 mg, 300 mg, Oral, daily, Stefanie Ferrara MD, 300 mg at 10/02/24 0942 FLUoxetine (PROzac) capsule 40 mg, 40 mg, Oral, daily BEDTIME, Stefanie Ferrara MD, 40 mg at 10/02/24 0111 OLANZapine (ZyPREXA) tablet 10 mg, 10 mg, Oral, daily BEDTIME, Stefanie Ferrara MD, 10 mg at 10/02/24 0112 tiZANidine (ZANAFLEX) tablet 2 mg, 2 mg, Oral, every 8 hours PRN, Stefanie Ferrara MD heparin in 0.45% NaCl 25,000 unit/250 mL infusion, 14 Units/kg/hr, IV, titrate, Li Box MD, Last Rate: 14 mL/hr at 10/02/24 1208, 14 Units/kg/hr at 10/02/24 1208 sodium chloride flush injection 10 mL, 10 mL, IV, every 12 hours (2 times daily), Stefanie Ferrara MD,10 mL at 10/02/24 0900 sodium chloride flush injection 10 mL, 10 mL, IV, see admin instructions, Stefanie Ferrara MD, 10 mL at 07/12/25 2022 sodium chloride 0.9 % flush bag 25 mL, 25 mL, IV, see admin instructions, Stefanie Ferrara MD dextrose 5 % in water 250 mL flush bag 25 mL, 25 mL, IV, see admin instructions,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 Miscellaneous Notes * Care Plan - Cindy Hinkle RN - 10/03/2024 8:45 AM CDT Problem: Discharge Planning Goal: Identify discharge needs upon admission and through discharge Description: 10/03/2024 0845 by Cindy Hinkle RN 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 Preferred Pharmacy: [id number] - [place], [place] - [address] Patient / Family Communications Resources Provided Transportation Plan Sig Other Follow Up Appointments Scheduled Cindy Hinkle RN * Care Plan - Tamanna Cheney RN - 10/03/2024 6:14 AM CDT Shift Summary Nitroglycerin was administered for chest pain, resulting in decreased pain levels. Blood pressure and pulse improved over the shift. Safety precautions were maintained, including bleeding precautions and fall risk interventions. Pain medication needs were reviewed with the patient. Overall, the patient displayed improved comfort and cardiovascular function by the end of the shift. Verbalizes/displays acceptable comfort level or baseline comfort level: Pain in the chest region decreased from a rating of 8 to 5 after administration of nitroglycerin, with verbalized relief noted.By the end of the shift, no pain was reported. Safety/Fall: Absence of fall, injury, harm during hospitalization: Safety precautions were maintained throughout the shift, including bleeding precautions and fall risk interventions. * Care Plan - Jaun West RN - 10/03/2024 2:27 AM CDT Problem: Infection, Risk/Actual (Adult) Goal: Infection, Risk/Actual: Infection Prevention/Resolution/Control Description: Patient will demonstrate the desired outcomes. Note: Le 's peripheral IV will remain free from infection. * Care Plan - Zain Evans [facility] - 10/02/2024 11:57 PM CDT Images from the original note were not included. Respiratory Patient Care Assessment S- Patient denies shortness of breath. Belkys Diaz is a 59 y.o. female admitted for Unstable angina on 10/01/2024 2:44 PM. Social History Tobacco Use Smoking status: Former Average packs/day: 1 pack/day for 43.0 years (43.0 ttl pk-yrs) Types: Cigarettes Start date: 07/21/2022 Smokeless tobacco: Never Vaping Use Vaping status: Never Used Substance Use Topics Alcohol use: No Drug use: No Prior to Admission medications Medication Sig Start Date End Date Taking? Authorizing Provider furosemide (LASIX) 40 mg tablet Take 1 Tablet (40 mg) by mouth daily. 09/16/24 Michael Tovar MD ipratropium-albuteroL (DUONEB) 0.5 mg-3 mg(2.5 mg base)/3 mL Solution for Nebulization Take 3 mL byinhalation every 4 hours as needed for Shortness of Breath. 09/10/24 Don Causey, DO Nebulizer & Compressor For Neb Device every 4 hours as needed for Other (See Comment) (shortness of breath). 09/10/24 Don Causey, DO ranolazine ER (RANEXA) 500 mg Extended Release [...] Length of Need: 99 months 08/06/24 Kapil Deluna DO oxyCODONE-acetaminophen (PERCOCET) 5-325 mg tablet Take [...] DAY FOR 4 WEEKS 02/01/24 Provider, Historical promethazine-dextromethorphan (PHENERGAN-DM) 6.25-15 mg/5 mL [...] x 1/2 Needle USE directed with Victoza. 12/29/22 Provider, Historical naloxone (NARCAN) 4 mg/spray [place], Non-Aerosol EMERGENCY USE ONLY: Administer 1 spray [...] MD Lab Results Component Value Date/Time WBC 7.3 10/02/2024 02:34 AM HGB 10.3 (L) 10/02/2024 02:34 AM HGBPOC 10.8 (L) 09/13/2024 08:22 PM HCT 32.1 (L) 10/02/2024 02:34 AM HCTPOC 32 (L) 09/13/2024 08:22 PM PLT 144 10/02/2024 02:34 AM MCV 96.7 10/02/2024 02:34 AM Lab Results Component Value Date/Time NA 141 10/02/2024 02:34 AM K 3.9 10/02/2024 02:34 AM CL 107 10/02/2024 02:34 AM CO2 23 10/02/2024 02:34 AM CA 9.2 10/02/2024 02:34 AM BUN 19 10/02/2024 02:34 AM CREAT 0.62 10/02/2024 02:34 AM GLUCOSE 238 (H) 10/02/2024 02:34 AM ANIONGAP 11 10/02/2024 02:34 AM BCRATIO SEE NOTE: 07/16/2023 10:52 AM Lab Results Component Value Date/Time TROPONIN 18 06/23/2023 11:20 AM Breath sounds reveal diminished bilaterally. Last chest x-ray reveals: No recent chest x-ray. Latest spirometry reveals: Unable to perform at this time A- Patient home regimen. P- Patient educated on purpose and technique of therapy. Based on above, patient will be placed on DuoNeb TID. Will reassess patient status as needed. Zain Evans RCP * Care Plan - Tasha Glynn RN - 10/02/2024 7:55 AM CDT Le 's peripheral IV will remain free from infection. * Care Plan - Safia Woods LCSW - 10/02/2024 7:21 AM CDT Problem: Discharge Planning Goal: Identify discharge needs upon admission and through discharge Description: Outcome: Progressing Clinical documentation reviewed. Comprehensive Discharge Planning Risk Assessment was completed. Documentation Related to CDPA score CDPA Documentation Ambulation: assistive person Transferring: independent Toileting: independent Bathing: independent Dressing: independent Eating: independent Communication: understands/communicates w/o difficulty Weight-Bearing Status: no weight-bearing restrictions Living Arrangements: Lives with friend/caregiver Total Score of 9 or below does not identify immediate needs for discharge. CDPA Risk Score Total Score: 7 3 Self-reported walking limitation 4 Age Criteria that do not apply: Disability Prior Living Status Please place consult if needs for discharge are identified. Care Management will continue to follow for discharge planning. * Care Plan - Aki Maya LPN - 10/02/2024 5:13 AM CDT Shift Summary Pain remained at a level of 10 throughout the shift despite administration of morphine and oxyCODONE-acetaminophen. Blood pressure increased to 151/92, and pulse remained elevated at 104. Supraventricular tachycardia persisted throughout the shift. Platelet estimate was adequate, but several CBC values were abnormal. Glucose level was high at 238 mg/dL, and anti-Xa unfractionated heparin was above the therapeutic range. Verbalizes/displays acceptable comfort level or baseline comfort level: Pain remained at a level of10 throughout the shift despite administration of morphine and oxyCODONE-acetaminophen. * Treatment Plan - Lisa Dillard PHARMACIST - 10/01/2024 6:28 PM CDT MW ROYA Adult Heparin Anti-Xa Monitoring Protocol [facility] [employer] ORDERS ARE ENTERED ???PER PROTOCOL?? Nursing Orders: Heparin must be hung as primary IV on dedicated IV site, unless discussed with physician and exception is authorized Obtain an actual weight, not stated weight, for pharmacy verification Do not give IM injections unless credentialed prescriber is alerted and chooses to proceed. Exception: Patient may receive vaccinations without contacting provider. RN to hold pressure to site post administration for 2 minutes Call credentialed prescriber for any evidence of hematoma, decrease in hemoglobin of 2 gram/dL or more, or with any acute change in mental status When programming the smart pump, refer to weight in eMAR order (this may not correlate with patient's current weight) Verify weight in eMAR order matches weight in smartpump Enter actual volume infused into flowsheet directly from smart pump upon clearing the pump volume Laboratory Orders: Baseline: Unfractionated heparin monitoring (Anti-Xa), PTT, and CBC without differential if not obtained in the last 72 hours before starting IV Heparin Infusion monitoring: Timed Anti-Xa every 6 hours after the initiation of infusion, change in rate or bolus until 2 consecutive Anti-Xa are in therapeutic range PTT monitoring should be used instead of Anti-xa monitoring for the following: Facility only has PTT lab monitoring capabilities Patients who have received a Xa inhibitor Direct Oral Anticoagulant (DOAC) medication (rivaroxaban,apixaban, edoxaban), therapeutic Enoxaparin, or Fondaparinux within the last 48 hours Daily once stable: Anti-Xa daily while on heparin once stable Minimum every 3 days: CBC without differential drawn at minimum of every 3 days while on heparin Medication Orders: Discontinue ALL other orders for subcutaneous, oral or IV anticoagulants, for example but not limited to: enoxaparin (LOVENOX), or fondaparinux (ARIXTRA) or oral anticoagulants dabigatran (PRADAXA), apixaban (ELIQUIS), edoxaban (SAVAYSA) or rivaroxaban (XARELTO). This protocol is not recommended for use with continuous alteplase infusions. Contact provider for additional orders. Pharmacist to confirm indication to ensure correct protocol table is followed, if unclear from the physician order or via chart review Pharmacist to verify heparin rate changes based on lab results in the protocol tables below. Pharmacist may update the order and MAR to match the current infusion rate. Dosing Weight: Obtain using a scale, NOT stated weight order-specific heparin dosing weight to be calculated by pharmacist. If weight <= 100 kg, ACTUAL body weight will be used to perform dose calculations If weight exceeds 100 kg, an ADJUSTED body weight will be used to perform dose calculations Initial dosing weight to be used for heparin infusion for the duration of therapy. Caution should be used by the RN to observe that this is the weight programmed in the smart pump. DVT/PE Heparin Infusion (usual indication for VTE: PE/DVT) Per provider order - bolus or no bolus Adjusted body weight used for pts >100 kg Initial Bolus Dose 80 units/kg (MAX 10,000 units) Initial Infusion 18 units/kg/hour Anti-Xa (Units/mL) Bolus (if boluses are authorized by physician per infusion order) Hold Infusion IV infusion Change Next Level Less than 0.2 60 units/kg 0 min Increase heparin dose by 3 units/kg/hr 6 hours 0.2 - 0.29 30 units/kg 0 min Increase heparin dose by 2 units/kg/hr 6 hours 0.3 - 0.7 NO CHANGE Every 6 hours x 2 then every AM 0.71 - 0.8 none 0 min Decrease heparin dose by 1 units/kg/hr 6 hours 0.81 - 0.9 none 30 min Decrease heparin dose by 2 units/kg/hr 6 hours Greater than 0.9 none 60 min Decrease heparin dose by 3 units/kg/hr 6 hours Cardiac Heparin Infusion (usual indication: Atrial fibrillation, mechanical valves, ACS, high bleedrisk) Per provider order - bolus or no bolus Adjusted body weight used for pts >100 kg Initial Bolus Dose Atrial fibrillation, mechanical valves, high bleed risk: 60 units/kg (MAX 7500 units) ACS: 60 units/kg (MAX 4000 units) Initial Infusion Atrial fibrillation, mechanical valves, high bleed risk: 15 units/kg/hour ACS: 12 units/kg/hour (MAX 1000 units/hour) Anti-Xa (Units/mL) Bolus (if boluses are authorized by physician per infusion order) Hold Infusion IV infusion Change Next Level Less than 0.2 30 units/kg 0 min Increase heparin dose by 2 units/kg/hr 6 hours 0.2 - 0.29 15 units/kg 0 min Increase heparin dose by 1 units/kg/hr 6 hours 0.3 - 0.6 NO CHANGE Every 6 hours x 2 then every AM 0.61 - 0.7 none 0 min Decrease heparin dose by 1 units/kg/hr 6 hours 0.71 - 0.9 none 30 min Decrease heparin dose by 2 units/kg/hr 6 hours Greater than 0.9 none 60 min Decrease heparin dose by 3 units/kg/hr 6 hours documented in this encounter Plan of Treatment Upcoming Encounters Date Type Department Care Team (Late st Contact Info) Description 10/06/2024 4:00 PM CDT Office Visit [facility]3] Pulmonology [address] [place] [address] Cristian Metcalf [facility] [address] [place] [phone] 10/11/2024 2:30 PM CDT Office Visit [facility] ([facility]3] Neurosurgery [address] [place] [address] Jerson Salas PA [address] [place] [address] 01/12/2025 1:40 PM CDT Office Visit [facility] [address] [place] [phone] rTesa Stockton CLINICAL STATISTICAL PROGRAMMER [address] [place] [phone] Scheduled Referrals Name Type Priority Associated Diagnoses Orde r Schedule AMB REFERRAL TO CARDIOLOGY Outpatient Referral Routine Chest pain, unspecified type Ordered: 10/03/2024 documented as of this encounter Goals Goal Patient Goal Type Associated Problems Recent Progress Patient-Stated? Author Heart Failure Goal Care Plan Heart Failure Problem No Silvio, Latonya, MARGOT documented as of this encounter Procedures Procedure Name Priority Date/Time Associated Diagnosis Comments POC GLUCOSE Routine 10/03/2024 11:23 AM CDT UNFRACTIONATED HEPARIN ACTIVITY Timed Study 10/03/2024 9:29 AM CDT PET HEART PERF R&S W CT MULTI Routine 10/03/2024 9:00 AM CDT NM PHARMACOLOGICAL STRESS TEST Routine 10/03/2024 8:48 AM CDT POC GLUCOSE Routine 10/03/2024 7:20 AM CDT UNFRACTIONATED HEPARIN ACTIVITY Stat 10/03/2024 2:22 AM CDT PROTIME-INR Routine 10/03/2024 2:22 AM CDT POC GLUCOSE Routine 10/02/2024 8:53 PM CDT RT ASSESS AND TREAT Routine 10/02/2024 7 :01 PM CDT UNFRACTIONATED HEPARIN ACTIVITY Timed Study 10/02/2024 5:57 PM CDT XR CHEST PA OR AP 1 VW Routine 5:56 PM CDT OT EVAL AND TREAT Routine 10/02/2024 5:4 4 PM CDT POC GLUCOSE Routine 10/02/2024 5:08 PM CDT POC GLUCOSE Routine 10/02/2024 11:34 AM CDT UNFRACTIONATED HEPARIN ACTIVITY Timed Study 10/02/2024 8:18 AM CDT TROPONIN Routine 10/02/2024 8:18 AM CDT POC GLUCOSE Routine 10/02/2024 7:04 AM CDT TROPONIN BASELINE, 5TH GEN Stat 10/02/2024 2:34 AM CDT DIFFERENTIAL, MANUAL Routine 10/02/2024 2:34 AM CDT UNFRACTIONATED HEPARIN ACTIVITY Timed Study 10/02/2024 2:34 AM CDT CBC WITH DIFFERENTIAL Routine 10/02/2024 2:34 AM CDT BASIC METABOLIC PANEL Routine 10/02/2024 2:34 AM CDT POC GLUCOSE Routine 10/02/2024 1:17 AM CDT UNFRACTIONATED HEPARIN ACTIVITY Stat 10/01/2024 5:24 PM CDT CBC WITH DIFFERENTIAL Stat 10/01/2024 5:23 PM CDT BASIC METABOLIC PANEL Routine 10/01/2024 5:23 PM CDT POC GLUCOSE Routine 10/01/2024 4:40 PM CDT UNFRACTIONATED HEPARIN ACTIVITY Timed Study 10/01/2024 3:57 PM CDT PTT Routine 10/01/2024 3:57 PM CDT PROTIME-INR Routine 10/01/2024 3:57 PM CDT documented in this encounter Results * (ABNORMAL) POC GLUCOSE (10/03/2024 11:23 AM CDT) [facility] Signature GLUCOSE POC 292(H) 74 - 99 mg/dL 10/03/2024 11:23 AM CDT [facility] SPECIMEN SOURCE, GLUCOSE POC Capillary 10/03/2024 11:23 AM CDT [facility] Blood, whole 10/03/2024 11:2 3 AM CDT 10/03/2024 11:39 AM CDT Li Anderson MD POINT OF CARE TESTING Fin al Result Performing Organization Address [facility]/ZIP Co de Phone Number [facility] CLIA # [id number] [address] [facility] [place], [place] [id number] * UNFRACTIONATED HEPARIN MONITORING (10/03/2024 9:29 AM CDT) Pathologist [facility] ANTI-XA UNFRAC HEP 0.58 See Interpretation IU/mL 10/03/2024 10:39 AM CDT [facility] Blood Venipuncture / Unknown 10/03/2024 9:29 AM CDT 10/03/2024 10:20 AM CDT Narrative [facility] - 10/03/2024 10:39 AM CDT Therapeutic Range: PT/DVT Heparin Protocol 0.3 - 0.7 IU/ml Cardiac Heparin Protocol 0.3 - 0.6 IU/ml The reference range for this test is specific to the anticoagulant and is not appropriate for monitoring patients on a DOAC protocol. Sasha Juan MD HEMATOLOGY O RDERABLES Final Result Performing Organization Address City/[facility]/ZIP Co de Phone Number [facility] CLIA # [id number] [address] [address] [place], [place] [address] * PET HEART PERF R&S W CT MULTI (10/03/2024 9:00 AM CDT) 10/03/2024 9:01 AM CDT Impressions INTERFACE SYSTEM - 10/03/2024 10:02 AM CDT Impression: 1. Myocardial perfusion images demonstrate a moderate size, mildly intense mostly fixed defect in the inferolateral wall associated with hypokinesis consistent with prior infarct. No reversible defects are noted. 2. Mildly reduced global myocardial blood flow reserve (MBFR) at 1.97. 3. Reducedleft ventricular systolic function, LVEF at rest is 35%, rising to 39% at peak stress. 4. TID ratio is 1.11. This is normal. 5. No prior study available for direct comparison. Howie Sweeney MD Narrative INTERFACE SYSTEM - 10/03/2024 10:02 AM CDT REST-STRESS REGADENOSON RUBIDIUM-82 PET/CT MYOCARDIAL PERFUSION IMAGING Clinical Indication and History: This is a 59-year-old with chest pain, atrial flutter, coronary artery disease, hypertension, diabetes. Procedure: A CT scan was required for attenuation correction of the rest images. This was followed by infusion of 29.6 mCi of rubidium Rb-82, after which rest images were acquired. Following rest imaging, a total of 0.4 mg was injected intravenously over 10 seconds followed by a 5 ml normal saline flush. At 1 minute, 29.7 mCi of rubidium Rb-82 was infused. Peak stress images acquired, starting 30 seconds after the beginning of the infusion of Rb-82. A CT scan was acquired for attention correction of the stress images. A coronary calcium score (performed if no prior CAD or calcium score) is acquired with 3 mm thick slices using a 3 mm slice of slice step. Calcium score protocol: high resolution, ECG synchronized completed tomography of the heart and coronary arteries was performed using a multi detector computer tomography MDCT scanner. Clinical response: The heart rate at rest was 93 beats per minute. After the regadenoson injection, the heart rate was 106 beats per minute. The blood pressure at baseline was 139/80 mm Hg. At the end of regadenoson injection, it was 145/81 mm Hg. The patient experienced the following symptoms during the test: shortness of breath. Electrocardiograph findings: The resting 12-lead electrocardiogram showed ectopic atrial rhythm, with ST-segment changes . Following regadenoson stress, no significant ST-T changes were noted. There was evidence of no significant new arrhythmias. Scintigraphic findings: The tomographic images show a moderate size, mildly intense mostly fixed defect in the inferolateral wall consistent with prior infarct. The left ventricle does not dilate with stress. The gated tomograms show inferolateral hypokinesis. The LVEF at rest is 35%, rising to 39% at peak stress. Myocardial blood flow reserve: Stress flow Rest flow MBFR LAD 1.27 0.68 1.87 LCX 1.09 0.58 1.88 RCA 1.17 0.52 2.26 Global 1.17 0.6 1.97 Clinical response: Non-diagnostic (regadenoson). Electrocardiographic response: Non-ischemic Scintigraphic response: Non-ischemic Procedure Note Howie Sweeney MD - 10/03/2024 REST-STRESS REGADENOSON RUBIDIUM-82 PET/CT MYOCARDIAL PERFUSION IMAGING Clinical Indication and History: This is a 59-year-old with chest pain, atrial flutter, coronary artery disease, hypertension, diabetes. Procedure: A CT scan was required for attenuation correction of the rest images. This was followed by infusion of 29.6 mCi of rubidium Rb-82, after which rest images were acquired. Following rest imaging, a total of 0.4 mg was injected intravenously over 10 seconds followed by a 5 ml normal saline flush. At 1 minute, 29.7 mCi of rubidium Rb-82 was infused. Peak stress images acquired, starting 30 seconds after the beginning of the infusion of Rb-82. A CT scan was acquired for attention correction of the stress images. A coronary calcium score (performed if no prior CAD or calcium score) is acquired with 3 mm thick slices using a 3 mm slice of slice step. Calcium score protocol: high resolution, ECG synchronized completed tomography of the heart and coronary arteries was performed using a multi detector computer tomography MDCT scanner. Clinical response: The heart rate at rest was 93 beats per minute. After the regadenoson injection, the heart rate was 106 beats per minute. The blood pressure at baseline was 139/80 mm Hg. At the end of regadenoson injection, it was 145/81 mm Hg. The patient experienced the following symptoms during the test: shortness of breath. Electrocardiograph findings: The resting 12-lead electrocardiogram showed ectopic atrial rhythm, with ST-segment changes . Following regadenoson stress, no significant ST-T changes were noted. There was evidence of no significant new arrhythmias. Scintigraphic findings: The tomographic images show a moderate size, mildly intense mostly fixed defect in the inferolateral wall consistent with prior infarct. The left ventricle does not dilate with stress. The gated tomograms show inferolateral hypokinesis. The LVEF at rest is 35%, rising to 39% at peak stress. Myocardial blood flow reserve: Stress flow Rest flow MBFR LAD 1.27 0.68 1.87 LCX 1.09 0.58 1.88 RCA 1.17 0.52 2.26 Global 1.17 0.6 1.97 Clinical response: Non-diagnostic (regadenoson). Electrocardiographic response: Non-ischemic Scintigraphic response: Non-ischemic Impression: 1. Myocardial perfusion images demonstrate a moderate size, mildly intense mostly fixed defect in the inferolateral wall associated with hypokinesis consistent with prior infarct. No reversible defects are noted. 2. Mildly reduced global myocardial blood flow reserve (MBFR) at 1.97. 3. Reducedleft ventricular systolic function, LVEF at rest is 35%, rising to 39% at peak stress. 4. TID ratio is 1.11. This is normal. 5. No prior study available for direct comparison. Howie Sweeney MD Dane Hopkins MD PE ORDERABLES Final Resu lt INTERFACE SYSTEM Refer to clinic/hospital department * NM PHARMACOLOGICAL STRESS TEST (10/03/2024 8:48 AM CDT) 10/03/2024 8:48 AM CDT Impressions INTERFACE SYSTEM - 10/03/2024 10:02 AM CDT Impression: 1. Myocardial perfusion images demonstrate a moderate size, mildly intense mostly fixed defect in the inferolateral wall associated with hypokinesis consistent with prior infarct. No reversible defects are noted. 2. Mildly reduced global myocardial blood flow reserve (MBFR) at 1.97. 3. Reducedleft ventricular systolic function, LVEF at rest is 35%, rising to 39% at peak stress. 4. TID ratio is 1.11. This is normal. 5. No prior study available for direct comparison. Howie Sweeney MD Narrative INTERFACE SYSTEM - 10/03/2024 10:02 AM CDT REST-STRESS REGADENOSON RUBIDIUM-82 PET/CT MYOCARDIAL PERFUSION IMAGING Clinical Indication and History: This is a 59-year-old with chest pain, atrial flutter, coronary artery disease, hypertension, diabetes. Procedure: A CT scan was required for attenuation correction of the rest images. This was followed by infusion of 29.6 mCi of rubidium Rb-82, after which rest images were acquired. Following rest imaging, a total of 0.4 mg was injected intravenously over 10 seconds followed by a 5 ml normal saline flush. At 1 minute, 29.7 mCi of rubidium Rb-82 was infused. Peak stress images acquired, starting 30 seconds after the beginning of the infusion of Rb-82. A CT scan was acquired for attention correction of the stress images. A coronary calcium score (performed if no prior CAD or calcium score) is acquired with 3 mm thick slices using a 3 mm slice of slice step. Calcium score protocol: high resolution, ECG synchronized completed tomography of the heart and coronary arteries was performed using a multi detector computer tomography MDCT scanner. Clinical response: The heart rate at rest was 93 beats per minute. After the regadenoson injection, the heart rate was 106 beats per minute. The blood pressure at baseline was 139/80 mm Hg. At the end of regadenoson injection, it was 145/81 mm Hg. The patient experienced the following symptoms during the test: shortness of breath. Electrocardiograph findings: The resting 12-lead electrocardiogram showed ectopic atrial rhythm, with ST-segment changes . Following regadenoson stress, no significant ST-T changes were noted. There was evidence of no significant new arrhythmias. Scintigraphic findings: The tomographic images show a moderate size, mildly intense mostly fixed defect in the inferolateral wall consistent with prior infarct. The left ventricle does not dilate with stress. The gated tomograms show inferolateral hypokinesis. The LVEF at rest is 35%, rising to 39% at peak stress. Myocardial blood flow reserve: Stress flow Rest flow MBFR LAD 1.27 0.68 1.87 LCX 1.09 0.58 1.88 RCA 1.17 0.52 2.26 Global 1.17 0.6 1.97 Clinical response: Non-diagnostic (regadenoson). Electrocardiographic response: Non-ischemic Scintigraphic response: Non-ischemic Procedure Note Parameswaran, Howie Darlyn, MD - 10/03/2024 REST-STRESS REGADENOSON RUBIDIUM-82 PET/CT MYOCARDIAL PERFUSION IMAGING Clinical Indication and History: This is a 59-year-old with chest pain, atrial flutter, coronary artery disease, hypertension, diabetes. Procedure: A CT scan was required for attenuation correction of the rest images. This was followed by infusion of 29.6 mCi of rubidium Rb-82, after which rest images were acquired. Following rest imaging, a total of 0.4 mg was injected intravenously over 10 seconds followed by a 5 ml normal saline flush. At 1 minute, 29.7 mCi of rubidium Rb-82 was infused. Peak stress images acquired, starting 30 seconds after the beginning of the infusion of Rb-82. A CT scan was acquired for attention correction of the stress images. A coronary calcium score (performed if no prior CAD or calcium score) is acquired with 3 mm thick slices using a 3 mm slice of slice step. Calcium score protocol: high resolution, ECG synchronized completed tomography of the heart and coronary arteries was performed using a multi detector computer tomography MDCT scanner. Clinical response: The heart rate at rest was 93 beats per minute. After the regadenoson injection, the heart rate was 106 beats per minute. The blood pressure at baseline was 139/80 mm Hg. At the end of regadenoson injection, it was 145/81 mm Hg. The patient experienced the following symptoms during the test: shortness of breath. Electrocardiograph findings: The resting 12-lead electrocardiogram showed ectopic atrial rhythm, with ST-segment changes . Following regadenoson stress, no significant ST-T changes were noted. There was evidence of no significant new arrhythmias. Scintigraphic findings: The tomographic images show a moderate size, mildly intense mostly fixed defect in the inferolateral wall consistent with prior infarct. The left ventricle does not dilate with stress. The gated tomograms show inferolateral hypokinesis. The LVEF at rest is 35%, rising to 39% at peak stress. Myocardial blood flow reserve: Stress flow Rest flow MBFR LAD 1.27 0.68 1.87 LCX 1.09 0.58 1.88 RCA 1.17 0.52 2.26 Global 1.17 0.6 1.97 Clinical response: Non-diagnostic (regadenoson). Electrocardiographic response: Non-ischemic Scintigraphic response: Non-ischemic Impression: 1. Myocardial perfusion images demonstrate a moderate size, mildly intense mostly fixed defect in the inferolateral wall associated with hypokinesis consistent with prior infarct. No reversible defects are noted. 2. Mildly reduced global myocardial blood flow reserve (MBFR) at 1.97. 3. Reducedleft ventricular systolic function, LVEF at rest is 35%, rising to 39% at peak stress. 4. TID ratio is 1.11. This is normal. 5. No prior study available for direct comparison. Howie Sweeney MD us Dane Hopkins MD NM ORDERABLES Final Resu lt INTERFACE SYSTEM Refer to clinic/hospital department * (ABNORMAL) POC GLUCOSE (10/03/2024 7:20 AM CDT) GLUCOSE POC 151(H) 74 - 99 mg/dL 10/03/2024 7:20 AM CDT [facility] SPECIMEN SOURCE, GLUCOSE POC Capillary 10/03/2024 7:20 AM CDT [facility] Blood, whole 10/03/2024 7:20 AM CDT 10/03/2024 7:31 AM CDT us Li Anderson MD POINT OF CARE TESTING Fin al Result Performing Organization Address [facility] Co de Phone Number [facility] CLIA # [id number] [address] [place] [address] * (ABNORMAL) PROTIME-INR (10/03/2024 2:22 AM CDT) PROTIME 17.2(H) 12.7 - 14.9 Seconds 10/03/2024 2:41 AM CDT [facility] INR 1.3(H) 0.8 - 1.2 10/03/2024 2:41 AM CDT [facility] Blood Venipuncture / Unknown 10/03/2024 2:22 AM CDT 10/03/2024 2:28 AM CDT On license of [facility] - 10/03/2024 2:41 AM CDT Expected Values for INR: DVT/PE Goal INR 2.5; range 2.0 - 3.0 Valve Replacement Tissue Goal INR 2.5; range 2.0 - 3.0 Valve Replacement Mechanical Goal INR 3.0; range 2.5 - 3.5 POST-[place] Goal INR 2.5; range 2.0 - 3.0 or Goal INR 3.0; range 2.5 - 3.5 Atrial Fibrillation Goal INR 2.5; range 2.0 - 3.0 Ischemic Stroke Goal INR 2.5; range 2.0 - 3.0 Li Anderson MD HEMATOLOGY ORDERABLES Fin al Result Performing Organization Address [facility] de Phone Number [facility] CLIA # [id number] [facility] [address] [place] [address] * UNFRACTIONATED HEPARIN MONITORING (10/03/2024 2:22 AM CDT) [facility] ANTI-XA UNFRAC HEP 0.27 See Interpretation IU/mL 10/03/2024 2:41 AM CDT [facility] Blood Venipuncture / Unknown 10/03/2024 2:22 AM CDT 10/03/2024 2:28 AM CDT On license of [facility] - 10/03/2024 2:41 AM CDT Therapeutic Range: PT/DVT Heparin Protocol 0.3 - 0.7 IU/ml Cardiac Heparin Protocol 0.3 - 0.6 IU/ml The reference range for this test is specific to the anticoagulant and is not appropriate for monitoring patients on a DOAC protocol. Li Anderson MD HEMATOLOGY ORDERABLES Fin al Result Performing Organization Address [facility] Co de Phone Number [facility] [facility] CLIA # [id number] [id number] [place] [address] * (ABNORMAL) POC GLUCOSE (10/02/2024 8:53 PM CDT) [facility] GLUCOSE POC 220(H) 74 - 99 mg/dL 10/02/2024 8:53 PM CDT [facility] SPECIMEN SOURCE, GLUCOSE POC Capillary 10/02/2024 8:53 PM CDT [facility] Blood, whole 10/02/2024 8:53 PM CDT 10/02/2024 9:03 PM CDT Li Anderson MD POINT OF CARE TESTING Fin al Result Performing Organization Address [facility] de Phone Number [facility] CLIA # [id number] [address] [place] [address] * UNFRACTIONATED HEPARIN MONITORING (10/02/2024 5:57 PM CDT) [facility] ANTI-XA UNFRAC HEP 0.61 See Interpretation IU/mL 10/02/2024 6:49 PM CDT [facility] Blood Venipuncture / Unknown 10/02/2024 5:57 PM CDT 10/02/2024 6:31 PM CDT Narrative [facility] - 10/02/2024 6:49 PM CDT Therapeutic Range: PT/DVT Heparin Protocol 0.3 - 0.7 IU/ml Cardiac Heparin Protocol 0.3 - 0.6 IU/ml The reference range for this test is specific to the anticoagulant and is not appropriate for monitoring patients on a DOAC protocol. Li Anderson MD HEMATOLOGY ORDERABLES Fin al Result Performing Organization Address [facility] Co de Phone Number [facility] CLIA # [id number] [id number] [place] [address] * XR CHEST PA OR AP 1 VW (10/02/2024 5:56 PM CDT) Anatomical Region Laterality Modality Chest Computed Radiogr aphy 10/02/2024 5:56 PM CDT Impressions 10/02/2024 6:05 PM CDT Impression: The cardiomediastinal structures are magnified. There is similar left lower lobe airspace disease compatible with atelectasis. There is no pneumothorax or pleural effusion. Narrative 10/02/2024 6:05 PM CDT Exam: XR CHEST PA OR AP 1 VW Date/Time of Exam: 10/02/2024 5:56 PM Reason For Exam: Chest Pain. Diagnosis: See Reason for Exam. Comparison: September 28, 2024. Procedure Note Guilherme Rubin MD - 10/02/2024 Exam: XR CHEST PA OR AP 1 VW Date/Time of Exam: 10/02/2024 5:56 PM Reason For Exam: Chest Pain. Diagnosis: See Reason for Exam. Comparison: September 28, 2024. Impression: The cardiomediastinal structures are magnified. There is similar left lower lobe airspace disease compatible with atelectasis. There is no pneumothorax or pleural effusion. Li Anderson MD DIAGNOSTIC IMAGING ORDERA BLES Final Result * (ABNORMAL) POC GLUCOSE (10/02/2024 5:08 PM CDT) GLUCOSE POC 237(H) 74 - 99 mg/dL 10/02/2024 5:08 PM CDT [facility] SPECIMEN SOURCE, GLUCOSE POC Capillary 10/02/2024 5:08 PM CDT [facility] Blood, whole 10/02/2024 5:0 8 PM CDT 10/02/2024 5:17 PM CDT Li Anderson MD POINT OF CARE TESTING Fin al Result [facility] CLIA # [id number] [address] [address] [place] [address] * (ABNORMAL) POC GLUCOSE (10/02/2024 11:34 AM CDT) [facility] GLUCOSE POC 241(H) 74 - 99 mg/dL 10/02/2024 11:34 AM CDT [facility] SPECIMEN SOURCE, GLUCOSE POC Capillary 10/02/2024 11:34 AM CDT [facility] Blood, whole 10/02/2024 11:3 4 AM CDT 10/02/2024 11:42 AM CDT Li Anderson MD POINT OF CARE TESTING Fin al Result Performing Organization Address [facility]/ZIP Co de Phone Number [facility] CLIA # [id number] [facility] [address] [place] [address] * (ABNORMAL) TROPONIN (10/02/2024 8:18 AM CDT) [facility] TROPONIN T, 5TH GEN 28(H) <=10 ng/L 10/02/2024 9:06 AM CDT [facility] Blood Venipuncture / Unknown 10/02/2024 8:18 AM CDT 10/02/2024 8:30 AM CDT Narrative [facility] - 10/02/2024 9:06 AM CDT Troponin elevated. us Dane Hopkins MD CHEMISTRY ORDERABLES Final Result [facility] CLIA # [id number] [address] [address] * (ABNORMAL) UNFRACTIONATED HEPARIN MONITORING (10/02/2024 8:18 AM CDT) [facility] ANTI-XA UNFRAC HEP 1.09(HH) See Interpretation IU/mL 10/02/2024 8:47 AM CDT [facility] Blood Venipuncture / Unknown 10/02/2024 8:18 AM CDT 10/02/2024 8:30 AM CDT Narrative [facility] - 10/02/2024 8:47 AM CDT Therapeutic Range: PT/DVT Heparin Protocol 0.3 - 0.7 IU/ml Cardiac Heparin Protocol 0.3 - 0.6 IU/ml The reference range for this test is specific to the anticoagulant and is not appropriate for monitoring patients on a DOAC protocol. Stefanie Ferrara MD HEMATOLOGY ORDERABLES Final Resu lt Performing Organization Address [facility] Co de Phone Number [facility] CLIA # [id number] [address] [address] * (ABNORMAL) POC GLUCOSE (10/02/2024 7:04 AM CDT) GLUCOSE POC 158(H) 74 - 99 mg/dL 10/02/2024 7:04 AM CDT [facility] SPECIMEN SOURCE, GLUCOSE POC Capillary 10/02/2024 7:04 AM CDT [facility] Blood, whole 10/02/2024 7:04 AM CDT 10/02/2024 7:14 AM CDT Stefanie Ferrara MD POINT OF CARE TESTING Final Resu lt Performing Organization Address [facility] Co de Phone Number [facility] CLIA # [id number] [address] [address] * (ABNORMAL) TROPONIN BASELINE, 5TH GEN (10/02/2024 2:34 AM CDT) TROPONIN T, BASELINE 5TH GEN 30(H) <=10 ng/L 10/02/2024 8:13 AM CDT [facility] Blood Venipuncture / Unknown 10/02/2024 2:34 AM CDT 10/02/2024 2:39 AM CDT Narrative [facility] - 10/02/2024 8:13 AM CDT Troponin elevated. Dane Hopkins MD CHEMISTRY ORDERABLES Final Result [facility] CLIA # [id number] [address] [place] [address] * MANUAL DIFFERENTIAL (10/02/2024 2:34 AM CDT) PLATELET EST. Adequate 10/02/2024 3:17 AM CDT [facility] Comment:This is a corrected result. Previous result was Decreased on 10/02/2024 at 0316 CDT ANISOCYTOSIS 1+ /hpf 10/02/2024 3:17 AM CDT [facility] POIKILOCYTES 1+ /hpf 10/02/2024 3:17 AM CDT [facility] POLYCHROMASIA 1+ /hpf 10/02/2024 3:17 AM CDT [facility] COTTON-JOLLY BODIES Present /hpf 10/02/2024 3:17 AM CDT [facility] Blood Venipuncture / Unknown 10/02/2024 2:34 AM CDT 10/02/2024 2:39 AM CDT us Stefanie Ferrara MD HEMATOLOGY ORDERABLES COM Edited Result - Final [facility] CLIA # [id number] [address] [place], [place] [id number] * UNFRACTIONATED HEPARIN MONITORING (10/02/2024 2:34 AM CDT) [facility] ANTI-XA UNFRAC HEP 0.80 See Interpretation IU/mL 10/02/2024 2:51 AM CDT [facility] Blood Venipuncture / Unknown 10/02/2024 2:34 AM CDT 10/02/2024 2:39 AM CDT Narrative [facility] - 10/02/2024 2:51 AM CDT Therapeutic Range: PT/DVT Heparin Protocol 0.3 - 0.7 IU/ml Cardiac Heparin Protocol 0.3 - 0.6 IU/ml The reference range for this test is specific to the anticoagulant and is not appropriate for monitoring patients on a DOAC protocol. us Stefanie Ferrara MD HEMATOLOGY ORDERABLES Final Resu lt [id number] [address] [address] * (ABNORMAL) BASIC METABOLIC PANEL (10/02/2024 2:34 AM CDT) [facility] SODIUM 141 136 - 145 mmol/L 10/02/2024 3:08 AM [facility] POTASSIUM 3.9 3.5 - 5.1 mmol/L 10/02/2024 3:08 AM [facility] Comment:Slightly hemolyzed. Result may be falsely elevated. CHLORIDE 107 98 - 107 mmol/L 10/02/2024 3:08 AM [facility] CO2 23 22 - 29 mmol/L 10/02/2024 3:08 AM [facility] CALCIUM 9.2 8.6 - 10.0 mg/dL 10/02/2024 3:08 AM [facility] BUN 19 6 - 20 mg/dL 10/02/2024 3:08 AM [facility] CREATININE 0.62 0.51 - 0.95 mg/dL 10/02/2024 3:08 AM T [facility] GLUCOSE 238(H) 74 - 99 mg/dL 10/02/2024 3:08 AM T [facility] GFR >60 >=60 mL/min/1.7 3 sq meter 10/02/2024 3:08 AM [facility] Comment:eGFR calculated with 2020 CKD-EPI equation. Vegetarian diet, extremely high or low muscle mass, and may affect results. Cystatin C with Glomerular Filtration Rate is a suitable alternative for these patients. ANION GAP 11 9 - 20 mmol/L 10/02/2024 3:08 AM T [facility] Blood Venipuncture / Unknown 10/02/2024 2:34 AM CDT 10/02/2024 2:39 AM CDT us Stefanie Ferrara MD CHEMISTRY ORDERABLES Final Resul t [facility] CLIA # [id number] [address] [address] * (ABNORMAL) CBC WITH DIFFERENTIAL (10/02/2024 2:34 AM CDT) [facility] WBC 7.3 4.8 - 10.8 K/uL 10/02/2024 3:16 AM [facility] NRBCS 3(H) <1 % 10/02/2024 3:16 AM [facility] RBC 3.32(L) 4.20 - 5.40 M/uL 10/02/2024 3:16 AM T [facility] HEMOGLOBIN 10.3(L) 12.0 - 16.0 g/dL 10/02/2024 3:16 AM T [facility] HEMATOCRIT 32.1(L) 36.0 - 46.0 % 10/02/2024 3:16 AM T [facility] MCV 96.7 84.0 - 103.0 fL 10/02/2024 3:16 AM T [facility] MCH 31.0 27.0 - 34.0 pg 10/02/2024 3:16 AM [facility] [facility] MCHC 32.1 30.0 - 35.0 g/dL 10/02/2024 3:16 AM [facility] [facility] PLATELETS 144 140 - 440 K/uL 10/02/2024 3:16 AM [facility] MPV 10.9 8.9 - 12.8 fL 10/02/2024 3:16 AM [facility] RDW 18.6(H) 11.0 - 14.5 % 10/02/2024 3:16 AM [facility] RDW-STDEV 66.1(H) 37.0 - 54.0 fL 10/02/2024 3:16 AM [facility] NEUTROPHILS 51 42 - 75 % 10/02/2024 3:16 AM [facility] LYMPHOCYTES 30 24 - 44 % 10/02/2024 3:16 AM [facility] MONOCYTES 17(H) 2 - 10 % 10/02/2024 3:16 AM [facility] EOSINOPHILS 0 0 - 7 % 10/02/2024 3:16 AM [facility] BASOPHILS 0 0 - 1 % 10/02/2024 3:16 AM [facility] IMMATURE GRANULOCYTES 3(H) 0 - 2 % 10/02/2024 3:16 AM [facility] NEUTROPHIL ABSOLUTE 3.69 2.00 - 8.00 K/uL 10/02/2024 3:16 AM [facility] LYMPHOCYTE ABSOLUTE 2.18 1.20 - 4.00 K/uL 10/02/2024 3:16 AM [facility] MONOCYTE ABSOLUTE 1.21(H) 0.10 - 0.60 K/uL 10/02/2024 3:16 AM [facility] EOSINOPHIL ABSOLUTE 0.01 0.00 - 0.70 K/uL 10/02/2024 3:16 AM [facility] BASOPHILS ABSOLUTE 0.03 0.00 - 0.20 K/uL 10/02/2024 3:16 AM CDT [facility] IMMATURE GRANULOCYTES ABSOLUTE 0.20(H) 0.00 - 0.10 K/uL 10/02/2024 3:16 AM CDT [facility] SMEAR REVIEWED: SR - See Smear Review on Manual Diff. 10/02/2024 3:16 AM CDT [facility] Blood Venipuncture / Unknown 10/02/2024 2:34 AM CDT 10/02/2024 2:39 AM CDT Setfanie Ferrara MD HEMATOLOGY ORDERABLES Final Resu lt Performing Organization Address [facility]/ZIP Co de Phone Number [facility] CLIA # [id number] [address] [address] * (ABNORMAL) POC GLUCOSE (10/02/2024 1:17 AM CDT) Pathologist [facility] GLUCOSE POC 209(H) 74 - 99 mg/dL 10/02/2024 1:17 AM CDT [facility] SPECIMEN SOURCE, GLUCOSE POC Capillary 10/02/2024 1:17 AM CDT [facility] Blood, whole 10/02/2024 1:17 AM CDT 10/02/2024 5:01 AM CDT Stefanie Ferrara MD POINT OF CARE TESTING Final Resu lt Performing Organization Address City/[facility]/ZIP Co de Phone Number [facility] CLIA # [id number] [address] [address] * UNFRACTIONATED HEPARIN MONITORING (10/01/2024 5:24 PM CDT) ANTI-XA UNFRAC HEP 0.13 See Interpretation IU/mL 10/01/2024 6:01 PM CDT [facility] Blood Venipuncture / Unknown 10/01/2024 5:24 PM CDT 10/01/2024 5:35 PM CDT [facility] - 10/01/2024 6:01 PM CDT Therapeutic Range: PT/DVT Heparin Protocol 0.3 - 0.7 IU/ml Cardiac Heparin Protocol 0.3 - 0.6 IU/ml The reference range for this test is specific to the anticoagulant and is not appropriate for monitoring patients on a DOAC protocol. us Stefanie Ferrara MD HEMATOLOGY ORDERABLES Final Resu lt [facility] CLIA # [id number] [address] [address] * (ABNORMAL) CBC WITH DIFFERENTIAL (10/01/2024 5:23 PM CDT) WBC 6.8 4.8 - 10.8 K/uL 10/01/2024 5:47 PM CDT [facility] NRBCS 3(H) <1 % 10/01/2024 5:47 PM CDT [facility] RBC 3.50(L) 4.20 - 5.40 M/uL 10/01/2024 5:47 PM CDT [facility] HEMOGLOBIN 10.6(L) 12.0 - 16.0 g/dL 10/01/2024 5:47 PM CDT [facility] [facility] HEMATOCRIT 34.6(L) 36.0 - 46.0 % 10/01/2024 5:47 PM CDT [facility] MCV 98.9 84.0 - 103.0 fL 10/01/2024 5:47 PM CDT [facility] MCH 30.3 27.0 - 34.0 pg 10/01/2024 5:47 PM CDT [facility] MCHC 30.6 30.0 - 35.0 g/dL 10/01/2024 5:47 PM CDT [facility] PLATELETS 165 140 - 440 K/uL 10/01/2024 5:47 PM [facility] MPV 11.5 8.9 - 12.8 fL 10/01/2024 5:47 PM [facility] RDW 18.6(H) 11.0 - 14.5 % 10/01/2024 5:47 PM [facility] RDW-STDEV 67.1(H) 37.0 - 54.0 fL 10/01/2024 5:47 PM [facility] NEUTROPHILS 61 42 - 75 % 10/01/2024 5:47 PM [facility] LYMPHOCYTES 23(L) 24 - 44 % 10/01/2024 5:47 PM [facility] MONOCYTES 14(H) 2 - 10 % 10/01/2024 5:47 PM [facility] EOSINOPHILS 0 0 - 7 % 10/01/2024 5:47 PM [facility] BASOPHILS 0 0 - 1 % 10/01/2024 5:47 PM [facility] IMMATURE GRANULOCYTES 2 0 - 2 % 10/01/2024 5:47 PM [facility] NEUTROPHIL ABSOLUTE 4.15 2.00 - 8.00 K/uL 10/01/2024 5:47 PM [facility] LYMPHOCYTE ABSOLUTE 1.55 1.20 - 4.00 K/uL 10/01/2024 5:47 PM [facility] MONOCYTE ABSOLUTE 0.92(H) 0.10 - 0.60 K/uL 10/01/2024 5:47 PM [facility] EOSINOPHIL ABSOLUTE 0.00 0.00 - 0.70 K/uL 10/01/2024 5:47 PM [facility] BASOPHILS ABSOLUTE 0.02 0.00 - 0.20 K/uL 10/01/2024 5:47 PM [facility] IMMATURE GRANULOCYTES ABSOLUTE 0.14(H) 0.00 - 0.10 K/uL 10/01/2024 5:47 PM [facility] SMEAR REVIEWED: NN - No Action Needed 10/01/2024 5:47 PM CDT [facility] Blood Venipuncture / Unknown 10/01/2024 5:23 PM CDT 10/01/2024 5:35 PM CDT us Stefanie Ferrara MD HEMATOLOGY ORDERABLES Final Resu lt [facility] CLIA # [id number] [address] [place] [address] [place] [address] * (ABNORMAL) BASIC METABOLIC PANEL (10/01/2024 5:23 PM CDT) SODIUM 141 136 - 145 mmol/L 10/01/2024 6:11 PM [facility] POTASSIUM 4.0 3.5 - 5.1 mmol/L 10/01/2024 6:11 PM [facility] CHLORIDE 106 98 - 107 mmol/L 10/01/2024 6:11 PM [facility] CO2 20(L) 22 - 29 mmol/L 10/01/2024 6:11 PM [facility] CALCIUM 9.1 8.6 - 10.0 mg/dL 10/01/2024 6:11 PM [facility] BUN 13 6 - 20 mg/dL 10/01/2024 6:11 PM [facility] CREATININE 0.55 0.51 - 0.95 mg/dL 10/01/2024 6:11 PM [facility] GLUCOSE 322(H) 74 - 99 mg/dL 10/01/2024 6:11 PM [facility] GFR >60 >=60 mL/min/1.7 3 sq meter 10/01/2024 6:11 PM [facility] Comment:eGFR calculated with 2020 CKD-EPI equation. Vegetarian diet, extremely high or low muscle mass, and may affect results. Cystatin C with Glomerular Filtration Rate is a suitable alternative for these patients. ANION GAP 15 9 - 20 mmol/L 10/01/2024 6:11 PM CDT [facility] Blood Venipuncture / Unknown 10/01/2024 5:23 PM CDT 10/01/2024 5:35 PM CDT Stefanie Ferrara MD CHEMISTRY ORDERABLES Final Resul t Performing Organization Address [facility] Co de Phone Number [facility] CLIA # [id number] [facility] [address] [address] * (ABNORMAL) POC GLUCOSE (10/01/2024 4:40 PM CDT) GLUCOSE POC 272(H) 74 - 99 mg/dL 10/01/2024 4:40 PM CDT [facility] SPECIMEN SOURCE, GLUCOSE POC Capillary 10/01/2024 4:40 PM CDT [facility] Blood, whole 10/01/2024 4:40 PM CDT 10/01/2024 4:48 PM CDT Stefanie Ferrara MD POINT OF CARE TESTING Final Resu lt Performing Organization Address [facility] Co de Phone Number [facility] CLIA # [id number] [facility] [address] [address] * (ABNORMAL) PROTIME-INR (10/01/2024 3:57 PM CDT) PROTIME 19.7(H) 12.7 - 14.9 Seconds 10/01/2024 4:20 PM CDT [facility] INR 1.6(H) 0.8 - 1.2 10/01/2024 4:20 PM CDT [facility] Blood Venipuncture / Unknown 10/01/2024 3:57 PM CDT 10/01/2024 4:07 PM CDT Narrative [facility] - 10/01/2024 4:20 PM CDT Expected Values for INR: DVT/PE Goal INR 2.5; range 2.0 - 3.0 Valve Replacement Tissue Goal INR 2.5; range 2.0 - 3.0 Valve Replacement Mechanical Goal INR 3.0; range 2.5 - 3.5 POST-[place] Goal INR 2.5; range 2.0 - 3.0 or Goal INR 3.0; range 2.5 - 3.5 Atrial Fibrillation Goal INR 2.5; range 2.0 - 3.0 Ischemic Stroke Goal INR 2.5; range 2.0 - 3.0 Stefanie Ferrara MD HEMATOLOGY ORDERABLES Final Resu lt [facility] CLIA # [id number] [id number] * (ABNORMAL) PTT (10/01/2024 3:57 PM CDT) Pathologist [facility] PTT 24.6(L) 24.8 - 37.2 seconds 10/01/2024 4:20 PM CDT [facility] Blood Venipuncture / Unknown 10/01/2024 3:57 PM CDT 10/01/2024 4:07 PM CDT On license of [facility] - 10/01/2024 4:20 PM CDT Therapeutic Range: Hi-level PE/DVT heparin protocol 80.1 - 95.0 sec Lo-level PE/DVT heparin protocol 70.1 - 85.0 sec Cardiac Heparin Protocol 70.1 - 100.0 sec Stefanie Ferrara MD HEMATOLOGY ORDERABLES Final Resu lt [facility] CLIA # [id number] [id number] * UNFRACTIONATED HEPARIN MONITORING (10/01/2024 3:57 PM CDT) ANTI-XA UNFRAC HEP 0.14 See Interpretation IU/mL 10/01/2024 4:20 PM CDT [facility] Blood Venipuncture / Unknown 10/01/2024 3:57 PM CDT 10/01/2024 4:07 PM CDT Narrative [facility] - 10/01/2024 4:20 PM CDT Therapeutic Range: PT/DVT Heparin Protocol 0.3 - 0.7 IU/ml Cardiac Heparin Protocol 0.3 - 0.6 IU/ml The reference range for this test is specific to the anticoagulant and is not appropriate for monitoring patients on a DOAC protocol. us Stefanie Ferrara MD HEMATOLOGY ORDERABLES Final Resu lt [facility] CLIA # [id number] [address] [id number] documented in this encounter Visit Diagnoses Diagnosis Chest pain- Primary Chest pain, unspecified Chest pain, unspecified type 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 Bipolar affective disorder (CMS/HCC) Bipolar disorder, unspecified Hypertension Unspecified essential hypertension Mixed hyperlipidemia Chronic pain syndrome GERD (gastroesophageal reflux disease) Esophageal reflux Type 2 diabetes mellitus without complication, without long-term current use of insulin ([facility]) History of pulmonary embolism Personal history of pulmonary embolism Chronic hypoxic respiratory failure ([facility]/HCC) CAD (coronary atherosclerotic disease) Coronary atherosclerosis of unspecified type of vessel, [place] or graft Morbid obesity due to excess calories ([facility]) documented in this encounter Administered Medications Inactive Administered Medications - up to 3 most recent administrations Medication Order MAR Action Action Date Dose Rate Site amLODIPine (NORVASC) tablet 2.5 mg 2.5 mg, Oral, DAILY LATE, First dose on 10/01/24 at 1700, Until Discontinued, Routine, Previous Med: amLODIPine (NORVASC) 2.5 mg tablet - Orig Sig - Take 2.5 mg by mouth late in the day. Given 10/02/2024 5:44 PM CDT 2.5 mg Given 10/01/2024 5:50 PM CDT 2.5 mg aspirin (CARTER CHEWABLE) chewable tablet 81 mg 81 mg, Oral, DAILY, First dose on Thu10/02/24 at 0900, Until Discontinued, Routine, Previous Med: aspirin (CARTER CHEWABLE) 81 mg Tablet, Chewable - Orig Sig - Take 81 mg by mouth daily. Given 10/03/2024 9:18 AM CDT 81 mg Given 10/02/2024 9:42 AM CDT 81 mg atorvastatin (LIPITOR) tablet 40 mg 40 mg, Oral, DAILY AT BEDTIME, First dose on 10/01/24 at 2100, Until Discontinued, Routine, Previous Med: atorvastatin (LIPITOR) 40 mg tablet - Orig Sig - Take 40 mg by mouth daily at bedtime. Given 10/02/2024 8:46 PM CDT 40 mg Given 10/02/2024 1:11 AM CDT 40 mg buPROPion HCL (WELLBUTRIN XL) 24 hour tablet 300 mg 300 mg, Oral, DAILY, First dose on Thu10/02/24 at 0900, Until Discontinued, Routine, Previous Med: buPROPion HCL (WELLBUTRIN XL) 300 mg Extended Release 24 hour tablet - Orig Sig - Take 1 Tablet by mouth daily. Given 10/03/2024 9:18 AM CDT 300 mg Given 10/02/2024 9:42 AM CDT 300 mg cyclobenzaprine (FLEXERIL) tablet 5 mg 5 mg, Oral, THREE TIMES DAILY PRN, Starting on 10/02/24 at 1738, Until Thu10/03/24 at 1511, Discomfort, Routine Given 10/02/2024 10:23 PM CDT 5 mg dextrose 5 % - sodium chloride 0.9 % infusion IV, at 40 mL/hr, SEE ADMIN INSTRUCTIONS, Starting on 10/01/24 at 1533, Until Thu10/03/24 at 1511, Routine dextrose 5 % in water 250 mL flush bag 25 mL 25 mL, IV, SEE ADMIN INSTRUCTIONS, Starting on 10/01/24 at 1532, Until Thu10/03/24 at 1511, Routine dextrose 50% (D50) syringe 12.5 Gram 12.5 Gram, IV, SEE ADMIN INSTRUCTIONS, Starting on 10/01/24 at 1533, Until Thu10/03/24 at 1511, Routine dextrose 50% (D50) syringe 25 Gram 25 Gram, IV, SEE ADMIN INSTRUCTIONS, Starting on Thu10/01/24 at 1533, Until Thu10/03/24 at 1511, Routine empagliflozin (JARDIANCE) tablet 10 mg 10 mg, Oral, DAILY EARLY, First dose on Thu10/04/24 at 0600, Until Discontinued, Routine, Indication: Heart Failure FLUoxetine (PROzac) capsule 40 mg 40 mg, Oral, DAILY AT BEDTIME, First dose on Thu10/01/24 at 2100, Until Discontinued, Routine, Previous Med: FLUoxetine (PROzac) 40 mg capsule - Orig Sig - Take 40 mg by mouth daily at bedtime. Given 10/02/2024 8:46 PM CDT 40 mg Given 10/02/2024 1:11 AM CDT 40 mg fluticasone furoate-vilanteroL (BREO ELLIPTA) 100-25 mcg/dose inhaler 1 Puff 1 Puff, Inhalation, DAILY RESPIRATORY, First dose on Thu10/02/24 at 0800, Until Discontinued, Routine, Previous Med: budesonide 160 mcg-glycopyr 9 mcg-formot 4.8 mcg/actuation HFA inhaler - Orig Sig - Take 2 Puffs by inhalation 2 times daily. Given 10/03/2024 9:17 AM CDT 1 Puff furosemide (LASIX) tablet 40 mg 40 mg, Oral, DAILY, First dose on Thu10/02/24 at 0900, Until Discontinued, Routine, Previous Med: furosemide (LASIX) 40 mg tablet - Orig Sig - Take 1 Tablet (40 mg) by mouth daily. Given 10/03/2024 9:18 AM CDT 40 mg Given 10/02/2024 9:42 AM CDT 40 mg glucagon HCL 1 mg/mL injection 1 mg 1 mg, IM, SEE ADMIN INSTRUCTIONS, Starting on Thu10/01/24 at 1533, Until Thu10/03/24 at 1511, Routine heparin in 0.45% NaCl 25,000 unit/250 mL infusion 16 Units/kg/hr 99.8 kg (15.968 mL/hr, rounded to 16 mL/hr), IV, TITRATE, Starting on Thu10/01/24 at 1900, Until Thu10/03/24 at 1221, Indication: Acute or Chronic VTE/PE/DVT, Dosing by: PER PROTOCOL: Delegate to facility protocol per indication, Re-bolus within Protocol? Yes, allow re-bolus New Bag 10/03/2024 9:07 AM CDT 16 Units/kg/hr 16 mL/hr Restarted 10/03/2024 8:40 AM CDT 16 Units/kg/hr 16 mL/hr Rate Change 10/03/2024 3:46 AM CDT 16 Units/kg/hr 16 mL/hr heparin injection 2,200 Units 2,200 Units (rounded from 2,187 Units = 30 Units/kg 72.9 kg Adjusted weight), IV, ONE TIME ONLY, 1 dose, On Thu10/03/24 at 0345, Routine Given 10/03/2024 3:47 AM CDT 2,200 Units insulin glargine (LANTUS) injection 25 Units 25 Units, subCUT, DAILY AT BEDTIME, First dose on 10/01/24 at 2100, Until Discontinued, Routine, Previous Med: Lantus Solostar U-100 Insulin 100 unit/mL (3 mL) solution for injection - Orig Sig - Inject 25 Units by subcutaneous injection daily at bedtime. Given 10/02/2024 9:23 PM CDT 25 Units Arm, Left Given 10/01/2024 9:00 PM CDT 25 Units Ar m, Right insulin lispro (HumaLOG,ADMELOG) injection 0-6 Units 0-6 Units, subCUT, THREE TIMES DAILY WITH MEALS, First dose on 10/01/24 at 1700, Until Discontinued, Routine Given 10/03/2024 11:23 AM CDT 3 Units Arm, Right Given 10/02/2024 5:44 PM CDT 2 Units Ab dominal Tissue Given 10/02/2024 12:00 PM CDT 2 Units A bdominal Tissue ipratropium-albuteroL (DUONEB) 0.5 mg-3 mg(2.5 mg base)/3 mL inhalation solution 3 mL 3 mL, Inhalation, THREE TIMES DAILY RESPIRATORY, First dose (after last modification) on Thu10/03/24 at 0700, Until Discontinued, Routine isosorbide mononitrate (IMDUR) SR 24 hour tablet 30 mg 30 mg, Oral, DAILY, First dose on Thu10/02/24 at 0900, Until Discontinued, Routine, Previous Med: isosorbide mononitrate (IMDUR) 30 mg Extended Release 24 hour tablet - Orig Sig - TAKE 1 TABLET BY MOUTH EVERY DAY Given 10/03/2024 9:18 AM CDT 30 mg Given 10/02/2024 9:42 AM CDT 30 mg Lidocaine 4 % topical patch 1 Patch 1 Patch, Topical, DAILY, First dose on Thu10/03/24 at 0900, Until Discontinued, Routine LORazepam (ATIVAN) tablet 0.5 mg 0.5 mg, Oral, EVERY 8 HOURS PRN, Starting on 10/01/24 at 1528, Until Thu10/03/24 at 1511, Anxiety, Routine, Previous Med: LORazepam (ATIVAN) 0.5 mg tablet - Orig Sig - Take 1 Tablet (0.5 mg) by mouth every 8 hours as needed for Anxiety. Given 10/02/2024 9:29 PM CDT 0.5 mg Given 10/02/2024 1:11 AM CDT 0.5 mg Given 10/01/2024 3:50 PM CDT 0.5 mg metoprolol succinate (TOPROL XL) SR 24 hour tablet 25 mg 25 mg, Oral, DAILY, First dose on Thu10/03/24 at 1215, Until Discontinued, Routine Given 10/03/2024 12:3 5 PM CDT 25 mg morphine 4 mg/mL injection 2 mg 2 mg, IV, ONE TIME ONLY, 1 dose, On Thu10/01/24 at 1730, Routine Given 10/01/2024 5:50 PM CDT 2 mg morphine 4 mg/mL injection 2 mg 2 mg, IV, ONE TIME ONLY, 1 dose, On Thu10/01/24 at 2000, Routine Given 10/01/2024 8:20 PM CDT 2 mg morphine 4 mg/mL injection 2 mg 2 mg, IV, ONE TIME ONLY, 1 dose, On Thu10/02/24 at 0130, Routine Given 10/02/2024 1:42 AM CDT 2 mg naloxone (NARCAN) 0.4 mg/mL injection 0.1-0.4 mg 0.1-0.4 mg, IV, SEE ADMIN INSTRUCTIONS, Starting on Thu10/01/24 at 1532, Until Thu10/03/24 at 1511, Routine nitroglycerin (NITROSTAT) tablet 0.4 mg 0.4 mg, Sublingual, EVERY 5 MINUTES PRN, 3 doses, Starting on 10/01/24 at 1528, Until Thu10/03/24 at 1511, Chest Pain, Routine, Previous Med: nitroglycerin (NITROSTAT) 0.4 mg Tablet, Sublingual - Orig Sig - Place 0.4 mg under tongue. Given 10/02/2024 7:36 PM CDT 0.4 mg OLANZapine (ZyPREXA) tablet 10 mg 10 mg, Oral, DAILY AT BEDTIME, First dose on 10/01/24 at 2100, Until Discontinued, Routine, Previous Med: OLANZapine (ZyPREXA) 10 mg tablet - Orig Sig - Take 10 mg by mouth daily at bedtime. Given 10/02/2024 8:46 PM CDT 10 mg Given 10/02/2024 1:12 AM CDT 10 mg ondansetron (ZOFRAN ODT) tablet 4 mg 4 mg, Oral, EVERY 6 HOURS PRN, Starting on 10/01/24 at 1532, Until Thu10/03/24 at 1511, Nausea/Emesis, Routine oxyCODONE-acetaminophen (PERCOCET) 5-325 mg per tablet 1 Tablet 1 Tablet, Oral, EVERY 6 HOURS PRN, Starting on 10/01/24 at 1528, Until Thu10/03/24 at 1511, Pain (See admin instructions), Routine, Previous Med: oxyCODONE-acetaminophen (PERCOCET) 5-325 mg tablet - Orig Sig - Take 1 Tablet by mouth every 6 hours as needed. Given 10/03/2024 7:37 AM CDT 1 Tablet Given 10/03/2024 12:26 AM CDT 1 Tablet Given 10/02/2024 6:19 PM CDT 1 Tablet ranolazine ER (RANEXA) SR 12 hour tablet 500 mg 500 mg, Oral, EVERY 12 HOURS, First dose on 10/01/24 at 2100, Until Discontinued, Routine, Previous Med: ranolazine ER (RANEXA) 500 mg Extended Release 12 hour tablet - Orig Sig - Take 1 Tablet (500 mg) by mouth every 12 hours. Given 10/03/2024 9:19 AM CDT 500 mg Given 10/02/2024 8:46 PM CDT 500 mg Given 10/02/2024 9:43 AM CDT 500 mg regadenoson (LEXISCAN) 0.4 mg/5 mL injection 0.4 mg, IV, INTRA-PROCEDURE ONCE, 1 dose, Starting on Thu10/03/24 at 0757, Until Thu10/03/24 at 0822, Routine Given 10/03/2024 8:22 AM CDT 0.4 mg sacubitriL-valsartan (ENTRESTO) 24-26 mg tablet 1 Tablet 1 Tablet, Oral, TWO TIMES DAILY, First dose on Thu10/03/24 at 1215, Until Discontinued, Routine Given 10/03/2024 12:34 PM CDT 1 Tablet sodium chloride 0.9 % flush bag 25 mL 25 mL, IV, SEE ADMIN INSTRUCTIONS, Starting on Thu10/01/24 at 1532, Until Thu10/03/24 at 1511, Routine sodium chloride flush injection 10 mL 10 mL, IV, EVERY 12 HOURS (BlD), First dose on Thu10/01/24 at 2100, Until Discontinued, Routine Given 10/03/2024 9:20 AM CDT 10 mL Given 10/02/2024 8:54 PM CDT 10 mL Given 10/02/2024 9:00 AM CDT 10 mL sodium chloride flush injection 10 mL 10 mL, IV, SEE ADMIN INSTRUCTIONS, Starting on Thu10/01/24 at 1532, Until Thu10/03/24 at 1511, Routine Given 10/01/2024 8:22 PM CDT 10 mL Given 10/01/2024 8:21 PM CDT 10 mL sodium chloride flush injection 10 mL 10 mL, IV, INTRA-PROCEDURE ONCE, 1 dose, Starting on Thu10/03/24 at 0757, Until Thu10/03/24 at 1511, Routine sodium chloride flush injection 20 mL 20 mL, IV, INTRA-PROCEDURE ONCE, 1 dose, Starting on Thu10/03/24 at 0757, Until Thu10/03/24 at 0822, Routine Given 10/03/2024 8:22 AM CDT 20 mL sodium chloride flush injection 5 mL 5 mL, IV, EVERY 12 HOURS, First dose on Thu10/02/24 at 0800, Until Discontinued, Routine Given 10/03/2024 7:58 AM CDT 20 mL Given 10/02/2024 9:42 AM CDT 5 mL sodium chloride flush injection 5 mL 5 mL, IV, SEE ADMIN INSTRUCTIONS, Starting on 10/02/24 at 0755, Until 10/03/24 at 1511, Routine umeclidinium (INCRUSE ELLIPTA) 62.5 mcg/actuation inhaler 1 Puff 1 Puff, Inhalation, DAILY RESPIRATORY, First dose on 10/02/24 at 0800, Until Discontinued, Routine Given 10/03/2024 9:17 AM CDT 1 Puff documented in this encounter Active and Recently Administered Medications Times are shown in CDT. Scheduled Medication Order 10/01/2024 10/02/2024 10/03/2024 amLODIPine (NORVASC) tablet 2.5 mg 2.5 mg, Oral, DAILY LATE, First dose on 10/01/24 at 1700, Until Discontinued, Routine, Previous Med: amLODIPine (NORVASC) 2.5 mg tablet - Orig Sig - Take 2.5 mg by mouth late in the day. 1750 (Given - Provider: Mikey Schreiber RN) 1744 (Given - Provider: Mikey Schreiber RN) aspirin (CARTER CHEWABLE) chewable tablet 81 mg 81 mg, Oral, DAILY, First dose on 10/02/24 at 0900, Until Discontinued, Routine, Previous Med: aspirin (CARTER CHEWABLE) 81 mg Tablet, Chewable - Orig Sig - Take 81 mg by mouth daily. 0942 (Given - Provider: Mikey Schreiber RN) 917 (Given - Provider: Taryn Garnica LPN) atorvastatin (LIPITOR) tablet 40 mg 40 mg, Oral, DAILY AT BEDTIME, First dose on 10/01/24 at 2100, Until Discontinued, Routine, Previous Med: atorvastatin (LIPITOR) 40 mg tablet - Orig Sig - Take 40 mg by mouth daily at bedtime. 110 (Given - Provider: Aki Maya LPN)2045 (Given - Provider: Ira Hobson RN) buPROPion HCL (WELLBUTRIN XL) 24 hour tablet 300 mg 300 mg, Oral, DAILY, First dose on 10/02/24 at 0900, Until Discontinued, Routine, Previous Med: buPROPion HCL (WELLBUTRIN XL) 300 mg Extended Release 24 hour tablet - Orig Sig - Take 1 Tablet by mouth daily. 0942 (Given - Provider: Mikey Schreiber RN) 917 (Given - Provider: Taryn Garnica LPN) dextrose 5 % - sodium chloride 0.9 % infusion IV, at 40 mL/hr, SEE ADMIN INSTRUCTIONS, Starting on Thu10/01/24 at 1533, Until Thu10/03/24 at 1511, Routine dextrose 5 % in water 250 mL flush bag 25 mL 25 mL, IV, SEE ADMIN INSTRUCTIONS, Starting on Thu10/01/24 at 1532, Until Thu10/03/24 at 1511, Routine dextrose 50% (D50) syringe 12.5 Gram 12.5 Gram, IV, SEE ADMIN INSTRUCTIONS, Starting on 10/01/24 at 1533, Until Thu10/03/24 at 1511, Routine dextrose 50% (D50) syringe 25 Gram 25 Gram, IV, SEE ADMIN INSTRUCTIONS, Starting on 10/01/24 at 1533, Until Thu10/03/24 at 1511, Routine empagliflozin (JARDIANCE) tablet 10 mg 10 mg, Oral, DAILY EARLY, First dose on Thu10/04/24 at 0600, Until Discontinued, Routine, Indication: Heart Failure FLUoxetine (PROzac) capsule 40 mg 40 mg, Oral, DAILY AT BEDTIME, First dose on Thu10/01/24 at 2100, Until Discontinued, Routine, Previous Med: FLUoxetine (PROzac) 40 mg capsule - Orig Sig - Take 40 mg by mouth daily at bedtime. 011 (Given - Provider: Aki Maya LPN)2045 (Given - Provider: Ira Hobson RN) fluticasone furoate-vilanteroL (BREO ELLIPTA) 100-25 mcg/dose inhaler 1 Puff 1 Puff, Inhalation, DAILY RESPIRATORY, First dose on Thu10/02/24 at 0800, Until Discontinued, Routine, Previous Med: budesonide 160 mcg-glycopyr 9 mcg-formot 4.8 mcg/actuation HFA inhaler - Orig Sig - Take 2 Puffs by inhalation 2 times daily. 0800 (Refused - Provider: Mikey Schreiber RN) 916 (Given - Provider: Taryn Garnica LPN) furosemide (LASIX) tablet 40 mg 40 mg, Oral, DAILY, First dose on Thu10/02/24 at 0900, Until Discontinued, Routine, Previous Med: furosemide (LASIX) 40 mg tablet - Orig Sig - Take 1 Tablet (40 mg) by mouth daily. 0942 (Given - Provider: Mikey Schreiber RN) 917 (Given - Provider: Taryn Garnica LPN) glucagon HCL 1 mg/mL injection 1 mg 1 mg, IM, SEE ADMIN INSTRUCTIONS, Starting on Thu10/01/24 at 1533, Until Thu10/03/24 at 1511, Routine heparin injection 2,200 Units (COMPLETED) 2,200 Units (rounded from 2,187 Units = 30 Units/kg 72.9 kg Adjusted weight), IV, ONE TIME ONLY, 1 dose, On Thu10/03/24 at 0345, Routine 0347 (Given - Provider: Tamanna Cheney RN) insulin glargine (LANTUS) injection 25 Units 25 Units, subCUT, DAILY AT BEDTIME, First dose on Thu10/01/24 at 2100, Until Discontinued, Routine, Previous Med: Lantus Solostar U-100 Insulin 100 unit/mL (3 mL) solution for injection - Orig Sig - Inject 25 Units by subcutaneous injection daily at bedtime. 2100 (Given - Provider: Aki Maya LPN) 2123 (Given - Provider: Ira Hobson RN) insulin lispro (HumaLOG,ADMELOG) injection 0-6 Units 0-6 Units, subCUT, THREE TIMES DAILY WITH MEALS, First dose on Thu10/01/24 at 1700, Until Discontinued, Routine 1700 (Due) 0800 (Not Given - Provider: Mikey Schreiber RN - Reason: Lab results / vitals)1200 (Given - Provider: Mikey Schreiber RN)1744 (Given - Provider: Mikey Schreiber RN) 0800 (Not Given - Provider: Taryn Garnica LPN - Reason: Lab results / vitals)1123 (Given - Provider: Taryn Garnica LPN) ipratropium-albuteroL (DUONEB) 0.5 mg-3 mg(2.5 mg base)/3 mL inhalation solution 3 mL 3 mL, Inhalation, THREE TIMES DAILY RESPIRATORY, First dose (after last modification) on Thu10/03/24 at 0700, Until Discontinued, Routine 0734 (Not Given - Provider: Krys Hercules RCP - Reason: Patient off unit)1300 (Due) isosorbide mononitrate (IMDUR) SR 24 hour tablet 30 mg 30 mg, Oral, DAILY, First dose on 10/02/24 at 0900, Until Discontinued, Routine, Previous Med: isosorbide mononitrate (IMDUR) 30 mg Extended Release 24 hour tablet - Orig Sig - TAKE 1 TABLET BY MOUTH EVERY DAY 0942 (Given - Provider: Mikey Schreiber, MARICARMEN) 0918 (Given - Provider: Taryn Garnica LPN) Lidocaine 4 % topical patch 1 Patch 1 Patch, Topical, DAILY, First dose on Thu10/03/24 at 0900, Until Discontinued, Routine 0900 (Refused - Provider: Taryn Garnica LPN) metoprolol succinate (TOPROL XL) SR 24 hour tablet 25 mg 25 mg, Oral, DAILY, First dose on Thu10/03/24 at 1215, Until Discontinued, Routine 1235 (Given - Provider: Taryn Garnica LPN) morphine 4 mg/mL injection 2 mg (COMPLETED) 2 mg, IV, ONE TIME ONLY, 1 dose, On 10/01/24 at 1730, Routine 1750 (Given - Provider: Mikey Schreiber RN) morphine 4 mg/mL injection 2 mg (COMPLETED) 2 mg, IV, ONE TIME ONLY, 1 dose, On 10/01/24 at 2000, Routine 2020 (Given - Provider: Aki Maya LPN) morphine 4 mg/mL injection 2 mg (COMPLETED) 2 mg, IV, ONE TIME ONLY, 1 dose, On 10/02/24 at 0130, Routine 0142 (Given - Provider: Aki Maya LPN) naloxone (NARCAN) 0.4 mg/mL injection 0.1-0.4 mg 0.1-0.4 mg, IV, SEE ADMIN INSTRUCTIONS, Starting on Thu10/01/24 at 1532, Until Thu10/03/24 at 1511, Routine OLANZapine (ZyPREXA) tablet 10 mg 10 mg, Oral, DAILY AT BEDTIME, First dose on Thu10/01/24 at 2100, Until Discontinued, Routine, Previous Med: OLANZapine (ZyPREXA) 10 mg tablet - Orig Sig - Take 10 mg by mouth daily at bedtime. 011 (Given - Provider: Aki Maya LPN)2045 (Given - Provider: Ira Hobson RN) ranolazine ER (RANEXA) SR 12 hour tablet 500 mg 500 mg, Oral, EVERY 12 HOURS, First dose on 10/01/24 at 2100, Until Discontinued, Routine, Previous Med: ranolazine ER (RANEXA) 500 mg Extended Release 12 hour tablet - Orig Sig - Take 1 Tablet (500 mg) by mouth every 12 hours. 011 (Given - Provider: Aki Maya LPN)942 (Given - Provider: Mikey Schreiber RN)2045 (Given - Provider: Ira Hobson RN) 918 (Given - Provider: Taryn Garnica LPN) regadenoson (LEXISCAN) 0.4 mg/5 mL injection (COMPLETED) 0.4 mg, IV, INTRA-PROCEDURE ONCE, 1 dose, Starting on Thu10/03/24 at 0757, Until Thu10/03/24 at 0822, Routine 0822 (Given - Provider: Tasha Stevenson RN) sacubitriL-valsartan (ENTRESTO) 24-26 mg tablet 1 Tablet 1 Tablet, Oral, TWO TIMES DAILY, First dose on Thu10/03/24 at 1215, Until Discontinued, Routine 1234 (Given - Provider: Taryn Garnica LPN) sodium chloride 0.9 % flush bag 25 mL 25 mL, IV, SEE ADMIN INSTRUCTIONS, Starting on 10/01/24 at 1532, Until Thu10/03/24 at 1511, Routine sodium chloride flush injection 10 mL 10 mL, IV, EVERY 12 HOURS (BlD), First dose on 10/01/24 at 2100, Until Discontinued, Routine 011 (Given - Provider: Aki Maya LPN)09 (Given - Provider: Mikey Schreiber RN)2053 (Given - Provider: Ira Hobson RN) 09 (Given - Provider: Taryn Garnica LPN) sodium chloride flush injection 10 mL 10 mL, IV, SEE ADMIN INSTRUCTIONS, Starting on 10/01/24 at 1532, Until Thu10/03/24 at 1511, Routine 2020 (Given - Provider: Aki Maya LPN)2021 (Given - Provider: Aki Maya LPN) sodium chloride flush injection 10 mL 10 mL, IV, INTRA-PROCEDURE ONCE, 1 dose, Starting on 10/03/24 at 0757, Until Thu10/03/24 at 1511, Routine sodium chloride flush injection 20 mL (COMPLETED) 20 mL, IV, INTRA-PROCEDURE ONCE, 1 dose, Starting on 10/03/24 at 0757, Until Thu10/03/24 at 0822, Routine 0822 (Given - Provider: Tasha Stevenson, MARICARMEN) sodium chloride flush injection 5 mL 5 mL, IV, EVERY 12 HOURS, First dose on 10/02/24 at 0800, Until Discontinued, Routine 0942 (Given - Provider: Mikey Schreiber RN)2100 (Canceled Entry - Provider: Ira Hobson RN) 0758 (Given - Provider: Tasha Stevenson RN) sodium chloride flush injection 5 mL 5 mL, IV, SEE ADMIN INSTRUCTIONS, Starting on 10/02/24 at 0755, Until Thu10/03/24 at 1511, Routine umeclidinium (INCRUSE ELLIPTA) 62.5 mcg/actuation inhaler 1 Puff 1 Puff, Inhalation, DAILY RESPIRATORY, First dose on 10/02/24 at 0800, Until Discontinued, Routine 0800 (Refused - Provider: Mikey Schreiber RN) 0917 (Given - Provider: Taryn Garnica LPN) warfarin (COUMADIN) tablet 10 mg 10 mg, Oral, DAILY, First dose on 10/02/24 at 1700, Until Discontinued, Routine, Previous Med: warfarin (COUMADIN) 10 mg tablet - Orig Sig - Take 1 Tablet by mouth daily. , Indication: A Fib, Goal INR: 2 to 3, On hold since 10/01/2024 at 1530 until manually unheld 1530 (Held by Provider - Provider: Stefanie Ferrara MD - Reason: Other - See Comment) 1700 (Automatically Held) 1511 (Order Unhold - Provider: PROVIDER, DISCHARGE PATIENT) Continuous Medication Order 10/01/2024 10/02/2024 10/03/2024 heparin in 0.45% NaCl 25,000 unit/250 mL infusion (CANCELED) 16 Units/kg/hr 99.8 kg (15.968 mL/hr, rounded to 16 mL/hr), IV, TITRATE, Starting on 10/01/24 at 1900, Until Thu10/03/24 at 1221, Indication: Acute or Chronic VTE/PE/DVT, Dosing by: PER PROTOCOL: Delegate to facility protocol per indication, Re-bolus within Protocol? Yes, allow re-bolus 1900 (Due)2031 (New Bag - Provider: Aki Maya LPN) 0321 (Rate Change - Provider: Aki Maya LPN)0951 (Rate Change - Provider: Mikey Schreiber RN)1208 (New Bag - Provider: Mikey Schreiber RN) 0346 (Rate Change - Provider: Tamanna Cheney RN)0740 (Stopped - Provider: Tasha Stevenson RN)0840 (Restarted - Provider: Tasha Stevenson RN)0907 (New Bag - Provider: Taryn Garnica LPN)1221 (Stopped - Provider: Taryn Garnica LPN - Comment: [Order ends at this time. Document the following action when infusion is complete: Stopped]) PRN Medication Order 10/01/2024 10/02/2024 10/03/2024 albuterol sulfate 90 mcg/Actuation inhaler 2 Puff 2 Puff, Inhalation, EVERY 6 HOURS PRN RESPIRATORY, Starting on 10/01/24 at 1529, Until Thu10/03/24 at 1511, Shortness of Breath, Routine, Previous Med: Ventolin HFA 90 mcg/actuation inhaler - Orig Sig - Take 2 Puffs by inhalation every 6 hours as needed. cyclobenzaprine (FLEXERIL) tablet 5 mg 5 mg, Oral, THREE TIMES DAILY PRN, Starting on 10/02/24 at 1738, Until 10/03/24 at 1511, Discomfort, Routine 2223 (Given - Provider: Ira Hobson RN) LORazepam (ATIVAN) tablet 0.5 mg 0.5 mg, Oral, EVERY 8 HOURS PRN, Starting on 10/01/24 at 1528, Until Thu10/03/24 at 1511, Anxiety, Routine, Previous Med: LORazepam (ATIVAN) 0.5 mg tablet - Orig Sig - Take 1 Tablet (0.5 mg) by mouth every 8 hours as needed for Anxiety. 1550 (Given - Provider: Mikey Schreiber RN) 011 (Given - Provider: Aki Maya LPN)2128 (Given - Provider: Ira Hobson RN) nitroglycerin (NITROSTAT) tablet 0.4 mg 0.4 mg, Sublingual, EVERY 5 MINUTES PRN, 3 doses, Starting on 10/01/24 at 1528, Until Thu10/03/24 at 1511, Chest Pain, Routine, Previous Med: nitroglycerin (NITROSTAT) 0.4 mg Tablet, Sublingual - Orig Sig - Place 0.4 mg under tongue. 193 (Given - Provider: Ira Hobson RN) ondansetron (ZOFRAN ODT) tablet 4 mg 4 mg, Oral, EVERY 6 HOURS PRN, Starting on 10/01/24 at 1532, Until Thu10/03/24 at 1511, Nausea/Emesis, Routine oxyCODONE-acetaminophen (PERCOCET) 5-325 mg per tablet 1 Tablet 1 Tablet, Oral, EVERY 6 HOURS PRN, Starting on 10/01/24 at 1528, Until Thu10/03/24 at 1511, Pain (See admin instructions), Routine, Previous Med: oxyCODONE-acetaminophen (PERCOCET) 5-325 mg tablet - Orig Sig - Take 1 Tablet by mouth every 6 hours as needed. 1550 (Given - Provider: Mikey Schreiber RN) 011 (Given - Provider: Aki Maya LPN)121 (Given - Provider: Mikey Schreiber RN)181 (Given - Provider: Mikey Schreiber RN) 0026 (Given - Provider: Tamanna Cheney RN)0737 (Given - Provider: Taryn Garnica LPN) tiZANidine (ZANAFLEX) tablet 2 mg 2 mg, Oral, EVERY 8 HOURS PRN, Starting on 10/01/24 at 1529, Until 10/03/24 at 1511, Spasm, Routine, Previous Med: tiZANidine (ZANAFLEX) 2 mg Tablet - Orig Sig - Take 2 mg by mouth every 8 hours as needed. 

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
--- OUTSIDE RECORDS SUMMARY | 2024-10-04 18:25 | XMS_ITS | Encounter Summary ---
Author Organization [facility] Address [address] [place] [address] Care Team Providers Care Liner Machine Operator Helper Name Role Phone Delta Wade MD Primary Care Provider [phone] Encounter Details Date Type Department Care Team (Late st Contact Info) Description 06/16/2024 Telephone [facility] Ophthalmology [address] [place] [address] Eduardo Craven MD [address] [place] [phone] Social History Tobacco Use Types Packs/Day [...] How often do you attend chur or episcopalian services? 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 [address] [place] [address] Tresa Stockton, [facility] [address] [place] [address] documented as of this encounter [...] CDT R/O GI Pathogen 09/13/2024 09/13/2024 09/14/2024 8:37 AM CDT documented as of this encounter Care Teams Liner Machine Operator Helper Relationship Specialty Start Date End Date Delta Wade MD [address] [address] PCP - General Family Practice 03/25/24 documented as of this encounter
--- OUTSIDE RECORDS SUMMARY | 2024-10-04 18:26 | XMS_ITS ---
Author Organization [facility] Address [address] [place] [address] Phone Care Team Providers Care Family Medicine Physician Assistant Name Role Phone Delta Wade MD Primary Care Provider [phone] Active Problems Problem Noted Date Diagnosed Date [...] 06/14/2019 H/O vaginal surgery 06/14/2019 Atherosclerosis of [place] co ronary artery of [place] heart without angina pectoris 06/14/2019 Urinary incontinence [...]
--- OUTSIDE RECORDS SUMMARY | 2024-10-04 18:26 | XMS_ITS | CCD ---
Author Name Interface, [id number] Address [address] [facility] [place] [address] [facility] Address [address] [place] [address] Care Team Providers Care Frame Cleaner Name Role Phone Anika VALLADARES, Allen Unavailable [...]
--- OUTSIDE RECORDS SUMMARY | 2024-10-04 18:26 | XMS_ITS | Encounter Summary ---
Author Organization [facility] Address [address] [place] [address] Care Team Providers Care Technology Infusion Specialist Name Role Phone Delta Wade MD Primary Care Provider [phone] Reason for Visit * Reason Comments Hospital Follow Up Encounter Details Date Type Department Care Team (Late st Contact Info) Description 05/13/2024 Telephone [facility] [place] [address] [place] [address] Kay Lima, [facility] [address] [place] [address] Hospital Follow Up Social History [...] often do you attend chur ch or denominational services? 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 Could not leave voicemail. If patient calls back please schedule for hospital follow up appointment for the next opening spot. Can be vv if patient cannot travel to clinic. PAK MACHINE OPERATOR * Telephone Encounter - Gypys Gerber - 05/13/2024 12:02 PM CST Copied from [facility] #[id number]. Topic: Reschedule/Cancel Appointment/Late Arrival >> May 13, [...] [facility] hospital discharge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 documented in this encounter Plan of Treatment Upcoming Encounters Date Type Department Care Team (Late st Contact Info) Description 10/06/2024 4:00 PM CDT Office Visit [facility] Pulmonology [address] [place] [address] Cristian Metcalf FNP [address] [place] [address] 10/11/2024 2:30 PM CDT Office Visit [facility] Neurosurgery [address] [place] [address] Jerson Salas PA [address] [place] [address] 01/12/2025 1:40 PM CDT Office Visit [facility] [address] [place] [address] Tresa Stockton, [facility] [address] [place] [address] documented as of this encounter [...] R/O COVID-19 05/13/2024 05/13/2024 05/14/2024 4:15 AM PURE PAK MACHINE OPERATOR R/O Respiratory 06/30/2024 06/30/2024 06/30/2024 1 0:36 [...] documented as of this encounter Care Teams Technology Infusion Specialist Relationship Specialty Start Date End Date Delta Wade MD [address] [address] PCP - General Family Practice 03/25/24 documented as of this encounter
--- OUTSIDE RECORDS SUMMARY | 2024-10-04 18:27 | XMS_ITS | Clinical Summary ---
Author Organization [facility] Address [address] [place] [address] Phone Care Team Providers Care Digital Color Press Operator Name Role Phone Delta Wade MD Primary Care Provider Allergies Active Allergy Reactions Criticality Noted Date [...] complication, without long-term current use of insulin ([facility]) Use to test blood glucose up to TID PRN symptoms. 1 Each 12/03/19 23 Active blood sugar diagnostic StripIndication s:Type 2 diabetes mellitus without complication, without long-term current use of insulin ([facility]) Use to test blood glucose up to QID PRN symptoms. 100 Each 11 12/18/19 Active TechLITE Pen Needle 29 gauge x 1/2 Needle USE directed with Victoza. 12/30/19 Active naloxone (NARCAN) 4 mg/spray [place], Non-Aerosol EMERGENCY USE ONLY: Administer 1 spray [...] daily. 30 Tablet 1 09/17/19 25 Active Lidocaine 4 % Adhesive Patch, Medicated Back pain 6 Patch 10/05/19 25 Active empagliflozin (JARDIANCE) 10 mg tablet Take 1 Tablet (10 mg) by mouth daily in the morning. 30 Tablet 10/05/19 25 Active metoprolol succinate (TOPROL XL) 25 mg Extended Release 24 hour tablet Take 1 Tablet (25 mg) by mouth daily. 30 Tablet 10/04/19 25 Active sacubitriL-vals treva (ENTRESTO) 24-26 mg Tablet Take 1 Tablet by mouth 2 times daily. 60 Tablet 10/04/19 25 Active sertraline (ZOLOFT) 50 mg tablet [...] Breath. 60 Each 1 08/27/19 25 2024 predniSONE (DELTASONE) 20 mg [...] 06/14/2019 H/O vaginal surgery 06/14/2019 Atherosclerosis of [place] co ronary artery of [place] heart without angina pectoris 06/14/2019 Urinary incontinence [...] Encounters Date Type Department Care Team Description 10/04/2024 Orders Only [facility] Neurosurgery [address] [place] [phone] Jerson Salas PA Closed fracture of first lumbar vertebra, unspecified fracture morphology, initial encounter ([facility]) (Primary Dx) 10/01/2024 2:44 PM CDT - 10/03/2024 1:00 PM CDT Hospital Encounter [facility] 4A Cardiac [address] [place] [phone] Hyu Ornelas MD Patel, Taksh, MD Mady, Mohamed Hamdy Ahmed Mohamed, MD Kuppi Reddy, Madhavi, MD Chest pain Discharge Disposition: Home or Self Care 09/28/2024 4:25 PM CDT - 09/28/2024 5:54 PM CDT Emergency [facility] Emergency Department [address] [place] [phone] Austin Robertson MD Montana, Robert C, MD Drug-seeking behavior (Primary Dx) Discharge Disposition: Left Against Medical Advice 09/22/2024 11:44 PM CDT - 09/23/2024 9:48 AM CDT Emergency [facility] Emergency Department [address] [place] [phone] Discharge Disposition: Left without being seen 09/22/2024 Travel 09/16/2024 11:40 PM CDT - 09/16/2024 11:41 PM CDT Emergency [facility] Emergency Department [address] [place] [phone] Discharge Disposition: Left without being seen 09/12/2024 9:13 PM CDT - 09/15/2024 12:26 PM CDT Hospital Encounter [facility] 4B Cardiac [address] [place] [address] Robbie Yen DO Abbas, MD Esperanza Soto Puneet Kaur, MD Fariza, Michael Mathew MD COPD exacerbation ([facility]/HCC) Discharge Disposition: Home or Self Care 09/10/2024 8:59 PM CDT - 09/11/2024 12:42 AM CDT Emergency [facility] Emergency Department [address] [place] [phone] Layton Barrow MD Chronic hypoxemic respiratory failure ([facility]) (Primary Dx); Type 2 diabetes mellitus with hyperglycemia, with long-term current use of insulin ([facility]); Pulmonary emphysema, unspecified emphysema type ([facility]) Discharge Disposition: Home or Self Care 09/10/2024 12:46 PM CDT - 09/10/2024 11:59 PM CDT Hospital Encounter [facility] [address] [place] [address] Don Causey DO Discharge Disposition: Home or Self Care 09/10/2024 11:40 AM CDT - 09/10/2024 11:59 PM CDT Hospital Encounter [facility] [address] [place] [address] Don Causey DO Discharge Disposition: Home or Self Care 09/09/2024 10:42 PM CDT - 09/09/2024 10:46 PM CDT Emergency [facility] Emergency Department [address] [place] [phone] Discharge Disposition: Left without being seen 09/09/2024 5:38 AM CDT - 09/09/2024 12:01 PM CDT Emergency [facility] Emergency Department [address] [place] [phone] Cassius Sanderson MD Acute on chronic congestive heart failure, unspecified heart failure type ([facility]/HCC) (Primary Dx) Discharge Disposition: Home or Self Care 09/09/2024 Travel 09/01/2024 Orders Only [facility] Neurosurgery [address] [place] [phone] Jerson Salas PA Closed fracture of first lumbar vertebra, unspecified fracture morphology, initial encounter ([facility]) (Primary Dx) 08/29/2024 7:55 PM CDT - 08/30/2024 2:43 PM CDT Emergency [facility] Emergency Department [address] [place] [address] Danitza Wayne MD Mady, Mohamed Hamdy Ahmed Mohamed, MD COPD with exacerbation ([facility]) (Primary Dx) Discharge Disposition: Home or Self Care 08/23/2024 Telephone [facility] [address] [place] [phone] Veronika Yusuf RN Anticoagulation 08/22/2024 4:18 PM CDT - 08/26/2024 6:26 PM CDT Hospital Encounter [facility] 4A Cardiac [address] [place] [address] Austin Robertson MD Abbas, MD Lacie Soto Abhaya, MD COPD exacerbation ([facility]) Discharge Disposition: Home or Self Care 08/22/2024 Travel 08/20/2024 9:19 PM CDT - 08/20/2024 9:22 PM CDT Emergency [facility] Emergency Department [address] [place] [phone] Discharge Disposition: Left without being seen 08/20/2024 Travel 08/18/2024 2:20 AM CDT - 08/18/2024 3:03 PM CDT Hospital Encounter [facility] 4B Cardiac [address] [place] [address] Danny Mclean MD Gibert, MD Safia Lagunas, MD La Soto, Michael Mathew MD Back pain Discharge Disposition: Home or Self Care 08/16/2024 Telephone [facility] [address] [place] [address] Veronika Yusuf, RN Anticoagulation 08/14/2024 6:00 PM CDT - 08/16/2024 1:22 PM CDT Hospital Encounter [facility] 4B Cardiac [address] [place] [address] Aki Booth, DO Baig, MD Rajesh Soto Lisa K, MD Kaur, MD Trini Closed compression fracture of body of L1 vertebra (CMS/HCC) Discharge Disposition: Home or Self Care 08/07/2024 8:18 PM CDT - 08/07/2024 8:45 PM CDT Emergency [facility] Emergency Department [address] [place] [address] Discharge Disposition: Left Against Medical Advice 08/05/2024 Telephone [facility] [address] [place] [address] Veronika Yusuf, RN Anticoagulation 08/04/2024 3:41 AM CDT - 08/06/2024 4:06 PM CDT Hospital Encounter [facility] 7B Medical Surgical [address] [place] [address] Danny Mclean MD Abbas, MD Alirio Soto Saroj, MD Bajor, Kapil Johnson, Acute on chronic respiratory failure with hypoxia and hypercapnia (CMS/HCC) Discharge Disposition: Home or Self Care 08/04/2024 Results Follow-Up [facility] Emergency Department [address] [place] [phone] Ayana Roman, RN BLOOD CULTURE, BLOOD CULTURE 08/04/2024 Travel 08/02/2024 8:48 PM CDT - 08/03/2024 3:51 AM CDT Emergency [facility] Emergency Department [address] [place] [phone] Dung Bui MD Shortness of breath (Primary Dx); Bilateral arm pain Discharge Disposition: Home or Self Care 08/02/2024 Travel 07/29/2024 Telephone [facility] [address] [place] [phone] Veronika Yusuf, RN Anticoagulation 07/28/2024 3:26 PM CDT - 07/31/2024 11:57 AM CDT Hospital Encounter [facility] 6B Medical Surgical [address] [place] [address] Aki Briceno, Efraín Keys, Jennifer Tamez MD Pneumonia of left lower lobe due to infectious organism Discharge Disposition: Home or Self Care 07/28/2024 Travel 07/22/2024 [address] [place] [phone] Veronika Yusuf, RN Anticoagulation 07/21/2024 1:24 PM CDT - 07/25/2024 3:15 PM CDT Hospital Encounter [address] Medical Surgical [address] [place] [phone] Abel Singletary MD Abbas, MD Bony Soto Hejab, MD COPD exacerbation ([facility]) Discharge Disposition: Home or Self Care 07/20/2024 6:10 PM CDT Anesthesia Event [facility] Operating Room [address] [place] [phone] Aki Garcia MD 07/20/2024 5:10 PM CDT - 07/20/2024 6:14 PM CDT Surgery [facility] Operating Room [address] [place] [address] Tereso Gil, DPM TOE(S) ARTHROPLASTY 07/20/2024 1:44 PM CDT - 07/20/2024 7:52 PM CDT Hospital Encounter [facility] 3J Pre-Op [address] [place] [address] Tereso Gil, DPM Hammertoe of left foot Discharge Disposition: Home or Self Care 07/19/2024 Telephone [facility]ry[facility] [facility] [address] [place] [phone] Tereso Gil, DPM Information (PRE-OP INSTRUCTIONS AND ARRIVAL TIME) 07/19/2024 Telephone [facility] [address] [address] Tereso Gil, DPM Information (SX INFO INQUIRY) 07/18/2024 4:35 PM CDT - 07/19/2024 4:54 PM CDT Hospital Encounter [facility] 4A Cardiac [address] [place] [address] Danny Velasquez MD Sundaram, Vignesh, MD Mady, Mohamed Hamdy Ahmed Mohamed, MD Acute respiratory distress Discharge Disposition: Home or Self Care 07/18/2024 Telephone [facility] [facility] [address] [place] [phone] Tereso Gil, DPM Information (RETURNING CALL TO PT) 07/14/2024 8:33 AM CDT - 07/16/2024 12:41 PM CDT Hospital Encounter [facility] 4C Medical [address] [place] [address] Abel Singletary MD Sohail, MD Margot Klein, MD Byron Feliz Jagdeep S, MD Cellulitis of right lower extremity Discharge Disposition: Home or Self Care 07/14/2024 [facility]phone [facility] [place] [address] [place] [phone] Tereso Gil, DPM Information (NOTIFY PT OF SX DATE CHANGE) 07/14/2024 Telephone [facility] [place] [address] [place] [address] Tereso Gil, DPM Information (RESCHED SX/ PRE-OP INSTRUCTIONS AND ARRIVAL TIME) 07/14/2024 Travel 07/13/2024 Telephone [facility] [place] [address] [place] [address] Tereso Gil, DPM Information (TO RESCHED SX) 2024 12:27 PM CDT - 2024 11:59 PM CDT Hospital Encounter [facility] [address] [place] [phone] Jose Cruz Sanchez MD Discharge Disposition: Home or Self Care 2024 11:57 AM CDT - 2024 11:59 PM CDT Hospital Encounter [facility] Pre Admission [facility] [address] [place] [phone] Tereso Gil, DPM Discharge Disposition: Home or Self Care 2024 Travel 07/07/2024 Telephone [facility] Cardiology [facility] [address] [place] [phone] Raúl Rod MD schedule HFU with HAND SEWER SHOES cardiology 07/05/2024 External Device Data ST[facility] ABSTRACTION Provider, Abstract 07/02/2024 8:47 PM CDT - 07/06/2024 7:37 PM CDT Hospital Encounter [facility] 4A Cardiac 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 Gender Identity Not on file Sexual [...] Mass Index 37.94 10/01/2024 3:09 PM CDT Plan of Treatment Upcoming Encounters Date Type Department Care Team (Late st Contact Info) Description 10/06/2024 4:00 PM CDT Office Visit [facility] Pulmonology [address] [place] [address] Cristian Metcalf, [facility] [address] [place] [address] 10/11/2024 2:30 PM CDT Office Visit [facility] Neurosurgery [address] [place] [address] Jerson Salas PA [address] [place] [address] 01/12/2025 1:40 PM CDT Office Visit [facility] [address] [place] [address] Tresa Stockton, [facility] [address] [place] [address] Health Maintenance Due Date Last Done Comments [...] Additional history exists LDL CHOLESTEROL ANNUAL 02/18/2025 4, 06/23/2023, 02/26/2023, Additional history exists DIABETES ANNUAL [...] Anguiano LPN Medical Devices Implanted Type Area Medicare Specialist Device Identifier Shelf Expiration Date Model / Serial / Lot Dev Closure Angioseal 6fr Vip [id number] - [id number] Implanted:Qty: 1 on 03/21/2024 by Kyler Helm MD at [facility] Closure Device Right: Groin [employer] [id number] 10/25/2024 [id number] / / [id number] 93 Imp Toe Phalinx 10 Solid Angl Sml [id number] - [id number] Implanted:Qty: 1 on 07/20/2024 by Tereso Gil DPM at [facility] Toe Left: Foot [employer] 12/29/2031 [id number] / [id number] Procedures Procedure Name Priority Date/Time Associated Diagnosis Comments POC GLUCOSE Routine 10/03/2024 11:23 AM CDT UNFRACTIONATED HEPARIN ACTIVITY Timed Study 10/03/2024 9:29 AM CDT PET HEART PERF R&S W CT MULTI Routine 10/03/2024 9:00 AM CDT NM PHARMACOLOGICAL STRESS TEST Routine 10/03/2024 8:48 AM CDT POC GLUCOSE Routine 10/03/2024 7:20 AM CDT PROTIME-INR Routine 10/03/2024 2:22 AM CDT UNFRACTIONATED HEPARIN ACTIVITY Stat 10/03/2024 2:22 AM CDT POC GLUCOSE Routine [...] POC GLUCOSE Routine 10/02/2024 11:34 AM CDT TROPONIN Routine 10/02/2024 8:18 AM CDT UNFRACTIONATED HEPARIN ACTIVITY Timed Study 10/02/2024 8:18 AM CDT POC GLUCOSE Routine 10/02/2024 7:04 AM CDT TROPONIN BASELINE, 5TH GEN Stat 10/02/2024 2:34 AM CDT DIFFERENTIAL, MANUAL Routine 10/02/2024 2:34 AM CDT UNFRACTIONATED HEPARIN ACTIVITY Timed Study 10/02/2024 2:34 AM CDT BASIC METABOLIC PANEL Routine 10/02/2024 2:34 AM CDT CBC WITH DIFFERENTIAL Routine 10/02/2024 2:34 AM CDT POC GLUCOSE Routine 10/02/2024 1:17 AM CDT UNFRACTIONATED HEPARIN ACTIVITY Stat 10/01/2024 5:24 PM CDT CBC WITH DIFFERENTIAL Stat 10/01/2024 5:23 PM CDT BASIC METABOLIC PANEL Routine 10/01/2024 5:23 PM CDT POC GLUCOSE Routine 10/01/2024 4:40 PM CDT PROTIME-INR Routine 10/01/2024 3:57 PM CDT PTT Routine 10/01/2024 3:57 PM CDT UNFRACTIONATED HEPARIN ACTIVITY Timed Study 10/01/2024 3:57 PM CDT EKG 12-LEAD Stat 09/28/2024 5:01 PM CDT XR CHEST PA OR AP 1 VW Stat 5:01 PM CDT TELEMETRY REPORT 09/16/2024 3:14 [...] TROPONIN 6 HR, 5TH GEN Timed Study 9:16 AM CDT POC GLUCOSE Routine 09/13/2024 6:58 AM CDT RT ASSESS AND TREAT Routine 09/13/2024 12:19 AM CDT COPD EDUCATION RT Routine 09/13/2024 12:19 AM CDT TROPONIN 2 HR, 5TH GEN Timed Study 11:02 PM CDT RESPIRATORY PATHOGEN PCR PANEL Stat 09/12/2024 11:02 PM CDT XR CHEST PA OR AP 1 VW Stat 10:18 PM CDT EXTRA TUBE (BLUE) Stat [...] TROPONIN 2 HR, 5TH GEN Timed Study 11:40 PM CDT BLOOD GAS VENOUS Stat 09/10/2024 10:23 PM CDT XR CHEST PA OR AP 1 VW Stat 10:05 PM CDT EKG 12-LEAD Stat 09/10/2024 [...] TROPONIN 2 HR, 5TH GEN Timed Study 9:58 AM CDT RT ASSESS AND TREAT Stat 09/09/2024 6 :08 AM CDT XR CHEST PA OR AP 1 VW Stat 5:30 AM CDT BRAIN NATRIURETIC PEPTIDE, BNP [...] TROPONIN 6 HR, 5TH GEN Timed Study 5 3:03 AM CDT TELEMETRY REPORT 08/30/2024 2:57 [...] TROPONIN 2 HR, 5TH GEN Timed Study 5 10:31 PM CDT XR CHEST PA OR AP 1 VW Stat 9:06 PM CDT EKG 12-LEAD Stat 08/29/2024 [...] TROPONIN 6 HR, 5TH GEN Timed Study 8:39 PM CDT LACTIC ACID Stat 08/22/2024 8:39 PM CDT RT ASSESS AND TREAT Stat 08/22/2024 7 :46 PM CDT COPD EDUCATION RT Stat 08/22/2024 7:4 6 PM CDT RT ASSESS AND TREAT Stat 08/22/2024 6 :42 PM CDT PROCALCITONIN Stat 08/22/2024 6:38 PM CDT TROPONIN 2 HR, 5TH GEN Timed Study 6:38 PM CDT BLOOD CULTURE Stat 08/22/2024 5:19 PM CDT BLOOD CULTURE Stat 08/22/2024 5:19 PM CDT BLOOD CULTURE Stat 08/22/2024 5:19 PM CDT BLOOD CULTURE Stat 08/22/2024 5:19 PM CDT BLOOD GAS ARTERIAL Stat 08/22/2024 5: 05 PM CDT XR CHEST PA OR AP 1 VW Stat 4:50 PM CDT RESPIRATORY PATHOGEN PCR PANEL [...] TROPONIN 6 HR, 5TH GEN Timed Study 8:52 AM CDT MAGNESIUM LEVEL Routine 08/18/2024 6:01 AM CDT TROPONIN 2 HR, 5TH GEN Timed Study 6:01 AM CDT BLOOD GAS VENOUS Stat 08/18/2024 4:02 AM CDT PROTIME-INR Stat 08/18/2024 3:12 AM CDT D-DIMER Stat 08/18/2024 3:12 AM CDT XR CHEST PA OR AP 1 VW Stat 3:04 AM CDT INFLUENZA A/B, RSV AND [...] AM CDT VITAMIN B12 AND FOLATE Routine 4:59 AM CDT CBC WITH DIFFERENTIAL Routine [...] CHEST PA OR AP 1 VW Stat 6:51 PM CDT XR HUMERUS 2+ VW [...] TROPONIN 6 HR, 5TH GEN Timed Study 3:27 PM CDT POC GLUCOSE Routine 08/04/2024 12:49 PM CDT EXTRA TUBE (URINE [place]) Stat 08/04/2024 11:44 AM CDT TROPONIN 2 HR, 5TH GEN Timed Study 11:44 AM CDT URINALYSIS W/REFLEX MICROSCOPIC Stat [...] TROPONIN 2 HR, 5TH GEN Timed Study 6:26 AM CDT RT ASSESS AND TREAT Stat 08/04/2024 5 :40 AM CDT COPD EDUCATION RT Stat 08/04/2024 5:4 0 AM CDT COPD EDUCATION RT Stat 08/04/2024 5:2 8 AM CDT BLOOD GAS VENOUS Stat 08/04/2024 5:01 AM CDT XR CHEST PA OR AP 1 VW Stat 5:00 AM CDT RESPIRATORY PATHOGEN PCR PANEL [...] TROPONIN 2 HR, 5TH GEN Timed Study 11:51 PM CDT CTA CHEST W AND/OR WO CONTRAST Stat 08/02/2024 11:09 PM CDT XR CHEST PA OR AP 1 VW Stat 9:54 PM CDT TROPONIN BASELINE, 5TH GEN [...] TROPONIN 6 HR, 5TH GEN Timed Study 11:23 PM CDT MAGNESIUM LEVEL Stat 07/28/2024 [...] TROPONIN 2 HR, 5TH GEN Timed Study 6:30 PM CDT CTA CHEST W AND/OR WO CONTRAST Stat 07/28/2024 5:27 PM CDT XR CHEST PA OR AP 1 VW Stat 4:06 PM CDT RESPIRATORY PATHOGEN PCR PANEL [...] TROPONIN 6 HR, 5TH GEN Timed Study 7:54 PM CDT LACTIC ACID Stat 07/21/2024 [...] TROPONIN 2 HR, 5TH GEN Timed Study 4:05 PM CDT CTA CHEST W AND/OR WO CONTRAST Stat 07/21/2024 4:01 PM CDT XR CHEST PA OR AP 1 VW Stat 2:55 PM CDT EKG 12-LEAD Stat 07/21/2024 [...] AIRWAY Routine 07/20/2024 6:2 0 PM CDT NM CORRECTION HAMM[place] 07/20/2024 5:10 PM CDT Hammer [...] AM CDT VITAMIN B12 AND FOLATE Routine 3:32 AM CDT LACTIC ACID Routine 07/19/2024 3:32 AM CDT BASIC METABOLIC PANEL Routine 07/19/2024 3:32 AM CDT CBC WITHOUT DIFFERENTIAL Routine 07/19/2024 3:32 AM CDT TROPONIN 6 HR, 5TH GEN Timed Study 3:32 AM CDT RT ASSESS AND TREAT Routine 07/18/2024 11:40 PM CDT POC GLUCOSE Routine 07/18/2024 11:19 PM CDT RT ASSESS AND TREAT Stat 07/18/2024 9 :58 PM CDT TROPONIN 2 HR, 5TH GEN Timed Study 7:21 PM CDT XR CHEST PA OR AP 1 VW Stat 6:07 PM CDT BLOOD CULTURE Stat 07/18/2024 [...] CHEST PA OR AP 1 VW Stat 9:54 AM CDT XR TIBIA AND FIBULA [...] CHEST PA OR AP 1 VW Routine 1:23 PM CDT Preoperative testing COMPREHENSIVE METABOLIC [...] POC GLUCOSE Routine 07/05/2024 7:07 AM CDT LIPID PANEL Routine 02/19/2024 5:29 AM SUPPLY CHAIN TECH MICROALBUMIN/CREATININ E RATIO, RANDOM UR Routine 02/26/2023 3:01 PM SUPPLY CHAIN TECH Type 2 diabetes mellitus without complication, without long-term current use of insulin ([facility]) Wellness examination CERV/VAG CYTO SCREEN PAP W/HPV Routine 01/06/2023 12:00 AM CDT Wellness examination MAMMO DIAGNOSTIC UNI RIGHT W OR WO CAD Routine 01/24/2011 10:03 AM CDT Lump or mass in breast from Last 3 Months or Most Recently Relevant to Health Maintenance Results * (ABNORMAL) POC GLUCOSE (10/03/2024 11:23 AM CDT) Only the most recent of105 resultswithin the time period is included. Pathologist [facility] GLUCOSE POC 292(H) 74 - 99 mg/dL 10/03/2024 11:23 AM CDT [facility] SPECIMEN SOURCE, GLUCOSE POC Capillary 10/03/2024 11:23 AM CDT [facility] Blood, whole 10/03/2024 11:2 3 AM CDT 10/03/2024 11:39 AM CDT us Li Anderson MD POINT OF CARE TESTING Fin al Result [id number] [address] [place] [address] [place], [place] [id number] * UNFRACTIONATED HEPARIN MONITORING (10/03/2024 9:29 AM CDT) Only the most recent of8 resultswithin the time period is included. Pathologist [facility] Emergency Department ANTI-XA UNFRAC HEP 0.58 See Interpretation IU/mL 10/03/2024 10:39 AM CDT [facility] Blood Venipuncture / Unknown 10/03/2024 9:29 AM CDT 10/03/2024 10:20 AM CDT Narrative [facility] - 10/03/2024 10:39 AM CDT Therapeutic Range: PT/DVT Heparin Protocol 0.3 - 0.7 IU/ml Cardiac Heparin Protocol 0.3 - 0.6 IU/ml The reference range for this test is specific to the anticoagulant and is not appropriate for monitoring patients on a DOAC protocol. Sasha Juan MD HEMATOLOGY O RDERABLES Final Result [facility] CLIA # [id number] [id number] [place] [address] * PET HEART PERF R&S W CT [...] prior study available for direct comparison. Howie MD Patel us Dane Hopkins MD NM ORDERABLES Final Resu lt INTERFACE SYSTEM Refer to clinic/hospital department * (ABNORMAL) PROTIME-INR (10/03/2024 2:22 AM CDT) Only the most recent of30 resultswithin the time period is included. PROTIME 17.2(H) 12.7 - 14.9 Seconds 10/03/2024 2:41 AM CDT [facility] INR 1.3(H) 0.8 - 1.2 10/03/2024 2:41 AM CDT [facility] Blood Venipuncture / Unknown 10/03/2024 2:22 AM CDT 10/03/2024 2:28 AM CDT Narrative [facility] - 10/03/2024 2:41 AM CDT Expected Values for INR: DVT/PE Goal INR 2.5; range 2.0 - 3.0 Valve Replacement Tissue Goal INR 2.5; range 2.0 - 3.0 Valve Replacement Mechanical Goal INR 3.0; range 2.5 - 3.5 POST-HI Goal INR 2.5; range 2.0 - 3.0 or Goal INR 3.0; range 2.5 - 3.5 Atrial Fibrillation Goal INR 2.5; range 2.0 - 3.0 Ischemic Stroke Goal INR 2.5; range 2.0 - 3.0 us Li Anderson MD HEMATOLOGY ORDERABLES Fin al Result [facility] CLIA # [id number] [address] [place] [address] * XR CHEST PA OR AP 1 VW (10/02/2024 5:56 PM CDT) Only the most recent of17 [...] IMAGING ORDERA BLES Final Result * (ABNORMAL) TROPONIN (10/02/2024 8:18 AM CDT) TROPONIN T, 5TH GEN 28(H) <=10 ng/L 10/02/2024 9:06 AM CDT [facility] [employer] [facility] Blood Venipuncture / Unknown 10/02/2024 8:18 AM CDT 10/02/2024 8:30 AM CDT [facility] [employer] [facility] - 10/02/2024 9:06 AM CDT Troponin elevated. Dane Hopkins MD CHEMISTRY ORDERABLES Final Result [facility] # [id number] [address] [place] [id number] * (ABNORMAL) TROPONIN BASELINE, 5TH GEN (10/02/2024 2:34 AM CDT) Only the most recent of13 resultswithin the time period is included. TROPONIN T, BASELINE 5TH GEN 30(H) <=10 ng/L 10/02/2024 8:13 AM CDT [facility] [employer] [facility] Blood Venipuncture / Unknown 10/02/2024 2:34 AM CDT 10/02/2024 2:39 AM CDT Narrative [facility] [employer] [facility] - 10/02/2024 8:13 AM CDT Troponin elevated. us Dane Hopkins MD CHEMISTRY ORDERABLES Final Result Performing Organization Address [facility] Co de Phone Number [facility] CLIA # [id number] [address] [place], [place] [id number] * MANUAL DIFFERENTIAL (10/02/2024 2:34 AM CDT) Only the most recent of2 resultswithin the time period is included. PLATELET EST. Adequate 10/02/2024 3:17 AM CDT [facility] Comment:This is a corrected result. Previous result was Decreased on 10/02/2024 at 0316 CDT ANISOCYTOSIS 1+ /hpf 10/02/2024 3:17 AM CDT [facility] POIKILOCYTES 1+ /hpf 10/02/2024 3:17 AM CDT [facility] POLYCHROMASIA 1+ /hpf 10/02/2024 3:17 AM CDT [facility] COTTON-JOLLY BODIES Present /hpf 10/02/2024 3:17 AM CDT [facility] Blood Venipuncture / Unknown 10/02/2024 2:34 AM CDT 10/02/2024 2:39 AM CDT Stefanie Ferrara MD HEMATOLOGY ORDERABLES COM Edited Result - Final Performing Organization Address [facility]/ZIP Co de Phone Number [facility] CLIA # [id number] [address] [place], [place] [phone] * (ABNORMAL) CBC WITH DIFFERENTIAL (10/02/2024 2:34 AM CDT) Only the most recent of29 resultswithin the time period is included. WBC 7.3 4.8 - 10.8 K/uL 10/02/2024 3:16 AM [facility] [employer] [facility] NRBCS 3(H) <1 % 10/02/2024 3:16 AM [facility] RBC 3.32(L) 4.20 - 5.40 M/uL 10/02/2024 3:16 AM [facility] HEMOGLOBIN 10.3(L) 12.0 - 16.0 g/dL 10/02/2024 3:16 AM [facility] HEMATOCRIT 32.1(L) 36.0 - 46.0 % 10/02/2024 3:16 AM [facility] [employer] [facility] MCV 96.7 84.0 - 103.0 fL 10/02/2024 3:16 AM [facility] [employer] [facility] MCH 31.0 27.0 - 34.0 pg 10/02/2024 3:16 AM [facility] MCHC 32.1 30.0 - 35.0 g/dL 10/02/2024 3:16 AM [facility] [employer] [facility] PLATELETS 144 140 - 440 K/uL 10/02/2024 3:16 AM [facility] [employer] [facility] MPV 10.9 8.9 - 12.8 fL 10/02/2024 3:16 AM [facility] [employer] [facility] RDW 18.6(H) 11.0 - 14.5 % 10/02/2024 3:16 AM [facility] [employer] [facility] RDW-STDEV 66.1(H) 37.0 - 54.0 fL 10/02/2024 3:16 AM [facility] [employer] [facility] NEUTROPHILS 51 42 - 75 % 10/02/2024 3:16 AM [facility] [employer] [facility] LYMPHOCYTES 30 24 - 44 % 10/02/2024 3:16 AM [facility] [employer] [facility] MONOCYTES 17(H) 2 - 10 % 10/02/2024 3:16 AM [facility] [employer] [facility] EOSINOPHILS 0 0 - 7 % 10/02/2024 3:16 AM [facility] [employer] [facility] BASOPHILS 0 0 - 1 % 10/02/2024 3:16 AM CDT [facility] IMMATURE GRANULOCYTES 3(H) 0 - 2 % 10/02/2024 3:16 AM CDT [facility] NEUTROPHIL ABSOLUTE 3.69 2.00 - 8.00 K/uL 10/02/2024 3:16 AM CDT [facility] LYMPHOCYTE ABSOLUTE 2.18 1.20 - 4.00 K/uL 10/02/2024 3:16 AM CDT [facility] MONOCYTE ABSOLUTE 1.21(H) 0.10 - 0.60 K/uL 10/02/2024 3:16 AM CDT [facility] EOSINOPHIL ABSOLUTE 0.01 0.00 - 0.70 K/uL 10/02/2024 3:16 AM CDT [facility] BASOPHILS ABSOLUTE 0.03 0.00 - 0.20 K/uL 10/02/2024 3:16 AM CDT [facility] IMMATURE GRANULOCYTES ABSOLUTE 0.20(H) 0.00 - 0.10 K/uL 10/02/2024 3:16 AM T [facility] SMEAR REVIEWED: SR - See Smear Review on Manual Diff. 10/02/2024 3:16 AM [facility] Blood Venipuncture / Unknown 10/02/2024 2:34 AM CDT 10/02/2024 2:39 AM CDT us Stefanie Ferrara MD HEMATOLOGY ORDERABLES Final Resu lt [facility] CLIA # [id number] [facility] [address] [place] [address] * (ABNORMAL) BASIC METABOLIC PANEL (10/02/2024 2:34 AM CDT) Only the most recent of17 resultswithin the time period is included. SODIUM 141 136 - 145 mmol/L 10/02/2024 3:08 AM T [facility] POTASSIUM 3.9 3.5 - 5.1 mmol/L 10/02/2024 3:08 AM CDT [facility] Comment:Slightly hemolyzed. Result may be falsely elevated. CHLORIDE 107 98 - 107 mmol/L 10/02/2024 3:08 AM T [facility] CO2 23 22 - 29 mmol/L 10/02/2024 3:08 AM T [facility] CALCIUM 9.2 8.6 - 10.0 mg/dL 10/02/2024 3:08 AM T [facility] BUN 19 6 - 20 mg/dL 10/02/2024 3:08 AM [facility] CREATININE 0.62 0.51 - 0.95 mg/dL 10/02/2024 3:08 AM [facility] GLUCOSE 238(H) 74 - 99 mg/dL 10/02/2024 3:08 AM [facility] GFR >60 >=60 mL/min/1.7 3 sq meter 10/02/2024 3:08 AM [facility] Comment:eGFR calculated with 2020 CKD-EPI equation. Vegetarian diet, extremely high or low muscle mass, and may affect results. Cystatin C with Glomerular Filtration Rate is a suitable alternative for these patients. ANION GAP 11 9 - 20 mmol/L 10/02/2024 3:08 AM T [facility] Blood Venipuncture / Unknown 10/02/2024 2:34 AM CDT 10/02/2024 2:39 AM CDT us Stefanie Ferrara MD CHEMISTRY ORDERABLES Final Resul t [id number] [address] [place] [address] [place] [address] * (ABNORMAL) PTT (10/01/2024 3:57 PM CDT) Only the most recent of3 resultswithin the time period is included. PTT 24.6(L) 24.8 - 37.2 seconds 10/01/2024 4:20 PM CDT [facility] Blood Venipuncture / Unknown 10/01/2024 3:57 PM CDT 10/01/2024 4:07 PM CDT Narrative [facility] - 10/01/2024 4:20 PM CDT Therapeutic Range: Hi-level PE/DVT heparin protocol 80.1 - 95.0 sec Lo-level PE/DVT heparin protocol 70.1 - 85.0 sec Cardiac Heparin Protocol 70.1 - 100.0 sec us Stefanie Ferrara MD HEMATOLOGY ORDERABLES Final Resu lt [facility] CLIA # [id number] [address] [place] [address] * EKG 12-LEAD (09/28/2024 5:01 PM CDT) Only the most recent of19 resultswithin the time period is included. 09/28/2024 5:01 PM CDT Narrative INTERFACE SYSTEM - 09/29/2024 4:18 PM CDT [place] [id number] Test Date: 2024-09-28 Pat Name: LE DIAZ Department: 11 Room: 04 04 Gender: Female [employer]: [email or web address] : 1965 Requested By: Order Number: [id number] Jessica MD: Mana Moore Measurements Intervals [place] Rate: 105 P: 0 NM: 140 QRS: 66 QRSD: 80 T: -17 QT: 348 QTc: 459 Interpretive Statements Ectopic atrial rhythm with occasional premature ventricular complexes Cannot rule out Inferior infarct, age undetermined Abnormal ECG Electronically Signed On 09-29-2024 16:18:09 CDT by Mana Moore Procedure Note Mana Moore MD - 09/29/[address] [address] Test Date: 2024-09-28 Pat Name: LE DIAZ Department: 11 Room: 04 04 Gender: Female [employer] 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: [email or web address] : 1965 Requested By: Order Number: [id number] Jessica MD: Mana Moore Measurements Intervals [place] Rate: 105 P: 0 NM: 140 QRS: 66 QRSD: 80 T: -17 QT: 348 QTc: 459 Interpretive Statements Ectopic atrial rhythm with occasional premature ventricular complexes Cannot rule out Inferior infarct, age undetermined Abnormal ECG Electronically Signed On 09-29-2024 16:18:09 CDT by Mana Moore us Delta Botello MD ECG ORDERABLES Final Result INTERFACE SYSTEM Refer to clinic/hospital department * TELEMETRY REPORT (09/16/2024 3:14 AM CDT) Only the most recent of7 resultswithin the time period is included. us Provider Scanning ECG ORDERABLES Final Result * (ABNORMAL) LACTIC ACID (09/15/2024 8:00 AM CDT) Only the most recent of21 resultswithin the time period is included. Pathologist [facility] LACTIC ACID 2.2(H) <=2.0 mmol/L 09/15/2024 8:42 AM CDT [facility] Blood Venipuncture / Unknown 09/15/2024 8:00 AM CDT 09/15/2024 8:03 AM CDT us Michael Tovar MD CHEMISTRY ORDERABLES Final Result [facility] CLIA # [id number] [address] [place] [address] [place] [address] * (ABNORMAL) COMPREHENSIVE METABOLIC PANEL (09/15/2024 8:00 AM CDT) Only the most recent of19 resultswithin the time period is included. Pathologist [facility] SODIUM 138 136 - 145 mmol/L 09/15/2024 10:22 AM [facility] POTASSIUM 4.4 3.5 - 5.1 mmol/L 09/15/2024 10:22 AM [facility] CHLORIDE 101 98 - 107 mmol/L 09/15/2024 10:22 AM [facility] CO2 20(L) 22 - 29 mmol/L 09/15/2024 10:22 AM [facility] CALCIUM 8.9 8.6 - 10.0 mg/dL 09/15/2024 10:22 AM [facility] BUN 18 6 - 20 mg/dL 09/15/2024 10:22 AM [facility] CREATININE 0.51 0.51 - 0.95 mg/dL 09/15/2024 10:22 AM [facility] GLUCOSE 238(H) 74 - 99 mg/dL 09/15/2024 10:22 AM [facility] TOTAL PROTEIN 6.2(L) 6.4 - 8.3 g/dL 09/15/2024 10:22 AM [facility] ALBUMIN 3.4(L) 3.5 - 5.2 g/dL 09/15/2024 10:22 AM [facility] BILIRUBIN TOTAL 0.3 0.0 - 1.0 mg/dL 09/15/2024 10:22 AM [facility] ALKALINE PHOSPHATASE 102 35 - 104 U/L 09/15/2024 10:22 AM [facility] AST 17 10 - 35 U/L 09/15/2024 10:22 AM [facility] Comment:Hemolysis present. R esult may be falsely elevated. ALT 39(H) <=35 U/L 09/15/2024 10:22 AM [facility] GFR >60 >=60 mL/min/1.7 3 sq meter 09/15/2024 10:22 AM [facility] Comment:eGFR calculated with 2020 CKD-EPI equation. Vegetarian diet, extremely high or low muscle mass, and may affect results. Cystatin C with Glomerular Filtration Rate is a suitable alternative for these patients. ANION GAP 17 9 - 20 mmol/L 09/15/2024 10:22 AM [facility] Blood Venipuncture / Unknown 09/15/2024 8:00 AM CDT 09/15/2024 8:03 AM CDT Michael Tovar MD CHEMISTRY ORDERABLES Final Result [facility] # [id number] [address] [place] [address] * (ABNORMAL) BLOOD GAS ARTERIAL (09/13/2024 8:22 PM CDT) Only the most recent of4 resultswithin the time period is included. PH BLOOD POC 7.40 7.35 - 7.45 09/13/2024 8:22 PM [facility] PCO2 POC 54(H) 35 - 45 mm Hg 09/13/2024 8:22 PM [facility] PO2 POC 44(L) 80 - 105 mm Hg 09/13/2024 8:22 PM [facility] HCO3 (CALC) POC 33(H) 22 - 26 mmol/L 09/13/2024 8:22 PM [facility] HEMOGLOBIN POC 10.8(L) 12.0 - 18.0 g/dL 09/13/2024 8:22 PM [facility] BASE EXCESS POC 9(H) -2 - 3 mmol/L 09/13/2024 8:22 PM [facility] O2 SATURATION POC 78(L) 95 - 98 % 09/13/2024 8:22 PM [facility] SODIUM POC 136(L) 138 - 146 mmol/L 09/13/2024 8:22 PM [facility] POTASSIUM POC 4.2 3.5 - 4.9 mmol/L 09/13/2024 8:22 PM CDT [facility] HEMATOCRIT POC 32(L) 38 - 51 % 09/13/2024 8:22 PM CDT [facility] PH TEMP CORRECT 7.40 7.35 - 7.45 09/13/2024 8:22 PM T [facility] PCO2 TEMP CORRECT 54(H) 35 - 45 mm Hg 09/13/2024 8:22 PM CDT [facility] PO2 TEMP CORRECT 44(L) 80 - 105 mm Hg 09/13/2024 8:22 PM CDT [facility] SPECIMEN SOURCE, GASES POC Arterial 09/13/2024 8:22 PM T [facility] CALCIUM IONIZED POC 5.1 4.8 - 5.2 mg/dL 09/13/2024 8:22 PM T [facility] TCO2 (CALC) POC 35(H) 23 - 27 mmol/L 09/13/2024 8:22 PM T [facility] LITER FLOW 3.0 L/min 09/13/2024 8:22 PM T [facility] PUNC SITE POC ART PUNCT 09/13/2024 8:22 PM T [facility] SOURCE OF OXYGEN POC Cannula 09/13/2024 8:22 PM T [facility] Blood, arterial 09/13/2024 8 :22 PM CDT 09/13/2024 8:24 PM CDT us Peña Margot Mata MD ABG ORDERABLES Final Re sult [facility] CLIA # [id number] [address] [place] [address] [place] [address] * XR THORACOLUMBAR SPINE 2 VW (09/13/2024 [...] CLINICAL HISTORY: ASSOCIATED DIAGNOSIS: Fracture ORDERING PROVIDER: ANRDADE FELTON TECHNYESSENIA NOTE: COMPARISON: Lumbar spine radiographs [...] 3.2(H) <=2.0 mmol/L 09/13/2024 2:52 PM CDT [facility] SPECIMEN SOURCE, GASES POC Arterial 09/13/2024 2:52 PM CDT [facility] [employer] [facility] PUN SITE POC ART PUNCT 09/13/2024 2:52 PM CDT [facility] [employer] [facility] Blood 09/13/2024 2:52 PM CDT 09/13/2024 2:55 PM CDT Narrative [facility] [employer] [facility] - 09/13/2024 2:52 PM CDT References ranges displayed are for Arterial samples. Peña Mata MD POINT OF CARE TESTING Fi nal Result Performing Organization Address City/[facility]/ZIP Co de Phone Number [facility] CLIA # [id number] [address] [address] [place], [place] [id number] * BLOOD CULTURE (09/13/2024 2:15 PM CDT) Only the most recent of12 resultswithin the time period is included. BLOOD CULTURE No growth 09/18/2024 3:31 PM CDT [facility] Blood (Peripheral) Venipuncture / Unknown 09/13/2024 2:15 PM CDT 09/13/2024 2:38 PM CDT Peña Mata MD MICROBIOLOGY - GENERAL O RDERABLES Final Result Performing Organization Address [facility] Co de Phone Number [facility] CLIA # [id number] [address] [address] * US ABDOMEN LIMITED (09/13/2024 1:27 PM [...] Mata MD URINE ORDERABLES Final R esult [facility] [employer] # [id number] [address] [address] [place] [address] * (ABNORMAL) URINALYSIS WITH REFLEX MICROSCOPIC (09/13/2024 1:12 PM CDT) Only the most recent of5 resultswithin the time period is included. COLOR UA Colorless(A ) Pale to Dark Yellow 09/13/2024 1:29 PM CDT [facility] CLARITY UA Clear Clear 09/13/2024 1:29 PM CDT [facility] SPECIFIC GRAVITY UA 1.012 1.003 - 1.035 09/13/2024 1:29 PM CDT [facility] PH UA 5.5 5.0 - 8.0 09/13/2024 1:29 PM CDT [facility] LEUKOCYTE ESTERASE UA 2+(A) Negative 09/13/2024 1:29 PM CDT [facility] NITRITE UA Negative Negative 09/13/2024 1:29 PM CDT [facility] PROTEIN UA Negative Negative 09/13/2024 1:29 PM T [facility] GLUCOSE UA 2+(A) Negative 09/13/2024 1:29 PM CDT [facility] KETONES UA Negative Negative 09/13/2024 1:29 PM CDT [facility] UROBILINOGEN UA <2.0 <2.0 mg/dL 1:29 PM CDT [facility] BILIRUBIN UA Negative Negative 09/13/2024 1:29 PM CDT [facility] BLOOD UA Negative Negative 09/13/2024 1:29 PM CDT [facility] WBC UA 0-2 0 - 2 /hpf 09/13/2024 1:29 PM T [facility] RBC UA 0-2 0 - 2 /hpf 09/13/2024 1:29 PM CDT [facility] BACTERIA UA 2+(A) Negative /hpf 09/13/2024 1:29 PM CDT [facility] EPITHELIAL CELLS, URINE 0-5 0 - 5 /hpf 09/13/2024 1:29 PM CDT [facility] HYALINE CAST 0-2 None Seen, 0-2 /lpf 09/13/2024 1:29 PM CDT [facility] Urine URINE SPECIMEN OBTAINED BY CLEAN CATCH PROCEDURE / Unknown Collection / Unknown 09/13/2024 1:12 PM CDT 09/13/2024 1:20 PM CDT Peña Mata MD URINE ORDERABLES Final R esult Performing Organization Address City/[facility]/ZIP Co de Phone Number [facility] CLIA # [id number] [address] [place] [address] * URINE CULTURE (09/13/2024 1:12 PM CDT) [facility] CULTURE Polymicrobial growth consistent with normal urethral kota and/or colonizing bacteria 09/14/2024 11:22 AM CDT [facility] Urine URINE SPECIMEN OBTAINED BY CLEAN CATCH PROCEDURE / Unknown Collection / Unknown 09/13/2024 1:12 PM CDT 09/13/2024 1:20 PM CDT Peña Mata MD MICROBIOLOGY - GENERAL O RDERABLES Final Result Performing Organization Address City/[facility]/ZIP Co de Phone Number [facility] CLIA # [id number] [address] [place] [address] * (ABNORMAL) BLOOD GAS VENOUS (09/13/2024 11:47 AM CDT) Only the most recent of6 resultswithin the time period is included. Pathologist [facility] PH BLOOD POC 7.31(L) 7.32 - 7.43 09/13/2024 11:47 AM [facility] PCO2 POC 64(H) 38 - 50 mm Hg 09/13/2024 11:47 AM [facility] PO2 POC 66(H) 25 - 40 mm Hg 09/13/2024 11:47 AM [facility] HCO3 (CALC) POC 32(H) 22 - 29 mmol/L 09/13/2024 11:47 AM [facility] HEMOGLOBIN POC 10.7(L) 12.0 - 18.0 g/dL 09/13/2024 11:47 AM [facility] BASE EXCESS POC 6(H) -2 - 3 mmol/L 09/13/2024 11:47 AM [facility] O2 SATURATION POC 94(H) 40 - 70 % 09/13/2024 11:47 AM [facility] SODIUM POC 136 135 - 145 mmol/L 09/13/2024 11:47 AM [facility] POTASSIUM POC 4.3 3.5 - 4.9 mmol/L 09/13/2024 11:47 AM [facility] HEMATOCRIT POC 32(L) 38 - 51 % 09/13/2024 11:47 AM [facility] PH TEMP CORRECT 7.31(L) 7.32 - 7.43 09/13/2024 11:47 AM [facility] PCO2 TEMP CORRECT 64(H) 38 - 50 mm Hg 09/13/2024 11:47 AM [facility] PO2 TEMP CORRECT 66(H) 25 - 40 mm Hg 09/13/2024 11:47 AM [facility] SPECIMEN SOURCE, GASES POC Venous 09/13/2024 11:47 AM [facility] CALCIUM IONIZED POC 5.3(H) 4.8 - 5.2 mg/dL 09/13/2024 11:47 AM [facility] TCO2 (CALC) POC 34(H) 22 - 26 mmol/L 09/13/2024 11:47 AM CDT [facility] PUN SITE POC No Charge 09/13/2024 11:47 AM CDT [facility] Blood, venous 09/13/2024 11: 47 AM CDT 09/13/2024 11:49 AM CDT Peña Mata MD ABG ORDERABLES Final Re sult [facility] CLIA # [id number] [address] [address] [place] [address] * (ABNORMAL) TROPONIN 6 HR, 5TH GEN (09/13/2024 9:16 AM CDT) Only the most recent of8 resultswithin the time period is included. TROPONIN T, 6 HR 5TH GEN 29(H) <11 ng/L 09/13/2024 9:55 AM CDT [facility] DELTA 6HR TROPONIN T 1 See Interp. 09/13/2024 9:55 AM CDT [facility] Blood Venipuncture / Unknown 09/13/2024 9:16 AM CDT 09/13/2024 9:24 AM CDT Narrative [facility] - 09/13/2024 9:55 AM CDT Troponin elevated. Delta indeterminate. us Robbie Yen DO CHEMISTRY ORDERABLES F inal Result Performing Organization Address City/[facility]/ZIP Co de Phone Number [facility] CLIA # [id number] [address] [address] [place] [address] * (ABNORMAL) TROPONIN 2 HR, 5TH GEN (09/12/2024 11:02 PM CDT) Only the most recent of12 resultswithin the time period is included. TROPONIN T, 2 HR 5TH GEN 27(H) <=10 ng/L 09/12/2024 11:41 PM CDT [facility] DELTA 2HR TROPONIN T -1 See Interp. 09/12/2024 11:41 PM CDT [facility] Blood Venipuncture / Unknown 09/12/2024 11:02 PM CDT 09/12/2024 11:10 PM CDT Narrative [facility] - 09/12/2024 11:41 PM CDT Troponin elevated. Delta not changing. us Robbie Yen DO CHEMISTRY ORDERABLES F inal Result [facility] CLIA # [id number] [facility] [address] [place] [address] * RESPIRATORY PATHOGEN PCR PANEL (09/12/2024 11:02 PM CDT) Only the most recent of6 resultswithin the time period is included. [facility] Respiratory Pathogen PCR Panel NOT DETECTED No respiratory pathogen nucleic acids detected. 09/13/2024 12:31 AM CDT [facility] COVID-19 PCR NOT DETECTED Not Detected 09/13/2024 12:31 AM CDT [facility] Upper Respiratory ENTIRE NASOPHARYNX / Unknown Collection / Unknown 09/12/2024 11:02 PM CDT 09/12/2024 11:08 PM CDT Narrative [facility] - 09/13/2024 12:31 AM CDT The [...] GENERAL ORDERABLES Final Result Performing Organization Address City/[facility]/ZIP Co de Phone Number [facility] CLIA # [id number] [address] [place], [place] [address] * EXTRA TUBE (BLUE) (09/12/2024 9:32 PM CDT) Only the most recent of3 resultswithin the time period is included. Blood Venipuncture / Unknown 09/12/2024 9:32 PM CDT 09/12/2024 10:59 PM CDT External Provider [facility] HEMATOLOGY ORDERABLES Jana l Result Performing Organization Address [facility] de Phone Number [facility] CLIA # [id number] [address] [facility] [place] [address] * (ABNORMAL) BRAIN NATRIURETIC PEPTIDE, BNP OR PROBNP (09/12/2024 9:32 PM CDT) Only the most recent of10 resultswithin the time period is included. PROBNP, N TERMINAL 623(H) 0 - 125 pg/mL 09/12/2024 10:22 PM CDT [facility] [employer] [facility] Comment: INTERPRETIVE COMMENT based on diagnosis: [...] Yen DO CHEMISTRY ORDERABLES F inal Result [facility] [employer] [facility] CLIA # [id number] [address] [facility] [place] [address] * Critical Care (09/12/2024 9:09 PM CDT) [...] PROCEDURE/MINOR SURGIC AL ORDERABLES Final Result * D-DIMER (09/10/2024 9:30 PM CDT) Only the most recent of2 resultswithin the time period is included. D-DIMER QUANT <0.27 0.00 - 0.50 ug/mL FEU 09/10/2024 10:03 PM CDT [facility] [employer] [facility] Blood Venipuncture / Unknown 09/10/2024 9:30 PM CDT 09/10/2024 9:33 PM CDT Narrative [facility] [employer] [facility] - 09/10/2024 10:03 PM CDT D-Dimer [...] Barrow MD HEMATOLOGY ORDERABLES Final Res ult [facility] # [id number] [facility] [address] [place] [address] * XR CHEST PA AND LATERAL 2 [...] 0.12(H) <=0.08 ng/mL 08/30/2024 6:32 AM CDT [facility] [employer] [facility] Blood Venipuncture / Unknown 08/30/2024 5:27 AM CDT 08/30/2024 5:41 AM CDT Narrative [facility] [employer] [facility] - 08/30/2024 6:32 AM CDT The [...] ORDERABLES Final Resul t Performing Organization Address City/[facility]/ZIP Co de Phone Number [facility] [id number] [address] [place] [id number] * INFLUENZA A/B, RSV AND COVID-19 PCR PANEL (08/30/2024 2:52 AM CDT) Only the most recent of3 resultswithin the time period is included. Pathologist [facility] COVID-19 PCR NOT DETECTED Not Detected 08/31/19 3:49 AM CDT [facility] Influenza A by PCR NOT DETECTED Not Detected 08/30/2024 3:49 AM CDT [facility] Influenza B by PCR NOT DETECTED Not Detected 08/30/2024 3:49 AM CDT [facility] RSV by PCR NOT DETECTED Not Detected 08/30/2024 3:49 AM CDT [facility] Upper Respiratory ENTIRE NASOPHARYNX / Unknown Collection / Unknown 08/30/2024 2:52 AM CDT 08/30/2024 2:55 AM CDT [facility] - 08/30/2024 3:49 AM CDT This test [...] ERAL ORDERABLES Final Result Performing Organization Address City/[facility]/ZIP Co de Phone Number [facility] CLIA # [id number] [address] [place] [address] * CT ABDOMEN PELVIS W CONTRAST (08/29/2024 [...] Hepatic steatosis 5. Prior splenectomy. Prior hysterectomy. [facility] Jairo Wayne MD CT ORDERABLES Fi nal Result * LIPASE (08/29/2024 8:09 PM CDT) Only the most recent of2 resultswithin the time period is included. LIPASE 19 13 - 60 U/L 08/29/2024 8:54 PM CDT [facility] Blood Venipuncture / Unknown 08/29/2024 8:09 PM CDT 08/29/2024 8:18 PM CDT Danitza Wayne MD CHEMISTRY ORDERABL ES Final Result [facility] # [id number] [address] [facility] [place] [address] * CT CHEST WO CONTRAST (08/18/2024 11:42 [...] - 2.6 mg/dL 08/18/2024 8:21 AM CDT [facility] Blood Venipuncture / Unknown 08/18/2024 6:01 AM CDT 08/18/2024 6:40 AM CDT Nba Baig MD CHEMISTRY ORDERABLES Fi nal Result Performing Organization Address [facility] de Phone Number [facility] CLIA # [id number] [address] [address] [place], [place] [id number] * VITAMIN B12 AND FOLATE (08/16/2024 4:59 AM CDT) Only the most recent of2 resultswithin the time period is included. VITAMIN B12 374 211 - 946 pg/mL 08/16/2024 6:23 AM CDT [facility] FOLATE, SERUM 14.5 3.1 - 17.5 ng/mL 08/16/2024 6:23 AM CDT [facility] Blood Venipuncture / Unknown 08/16/2024 4:59 AM CDT 08/16/2024 5:05 AM CDT Nayely Mena MD CHEMISTRY ORDERABLES Final Resul t Performing Organization Address [facility] Co de Phone Number [facility] CLIA # [id number] [address] [address] [place], [place] [address] * CT HUMERUS WO CONTRAST LEFT (08/15/2024 [...] imaged. ++++++++++++++++++++ IMPRESSION No acute osseous findings. us Nba Baig MD CT ORDERABLES Final R [...] - 4.20 uIU/mL 08/14/2024 8:09 PM CDT [facility] Blood Venipuncture / Unknown 08/14/2024 7:05 PM CDT 08/14/2024 7:14 PM CDT Aki Booth DO CHEMISTRY ORDERABLES Fi nal Result [facility] CLIA # [id number] [address] [address] [place] [address] * XR HUMERUS 2+ VW LEFT (08/14/2024 [...] present. Aki Booth DO DIAGNOSTIC IMAGING ORDE RABLES Final Result * (ABNORMAL) DRUG SCREEN, URINE (08/04/2024 11:44 AM CDT) Pathologist [facility] AMPHETAMINE QUAL, URINE Negative Negative 08/04/2024 12:30 PM CDT [facility] BARBITURATE QUAL, URINE Negative Negative 08/04/2024 12:30 PM CDT [facility] BENZODIAZEPINE QUAL, URINE Negative Negative 08/04/2024 12:30 PM CDT [facility] COCAINE QUAL URINE Negative Negative 08/04/2024 12:30 PM CDT [facility] OPIATE QUAL, URINE Negative Negative 08/04/2024 12:30 PM T [facility] CANNABINOIDS QUAL, URINE Negative Negative 08/04/2024 12:30 PM T [facility] OXYCODONE QUAL, URINE Presumptive Positive(A) Negative 08/04/2024 12:30 PM T [facility] METHADONE QUAL, URINE Negative Negative 08/04/2024 12:30 PM T [facility] FENTANYL QUAL, URINE Negative Negative 08/04/2024 12:30 PM CDT [facility] CREATININE, URINE 11.9(L) 29.0 - 226.0 mg/dL 08/04/2024 12:30 PM [facility] Comment:Reference Range vari es with fluid intake and diet. Urine URINE SPECIMEN OBTAINED BY CLEAN CATCH PROCEDURE / Unknown Collection / Unknown 08/04/2024 11:44 AM CDT 08/04/2024 11:51 AM CDT Narrative [facility] - 08/04/2024 12:30 PM CDT When Urine [...] Negative 300 ng/mL Fentanyl Negative 5 ng/mL us Danny Mclean MD URINE ORDERABLES Final Result [facility] CLIA # [id number] [address] [address] * (ABNORMAL) CBC WITHOUT DIFFERENTIAL (08/04/2024 9:09 AM CDT) Only the most recent of4 resultswithin the time period is included. WBC 9.5 4.8 - 10.8 K/uL 08/04/2024 9:24 AM T [facility] NRBCS 1(H) <1 % 08/04/2024 9:24 AM [facility] RBC 4.14(L) 4.20 - 5.40 M/uL 08/04/2024 9:24 AM T [facility] HEMOGLOBIN 13.2 12.0 - 16.0 g/dL 08/04/2024 9:24 AM T [facility] HEMATOCRIT 41.7 36.0 - 46.0 % 08/04/2024 9:24 AM T [facility] MCV 100.7 84.0 - 103.0 fL 08/04/2024 9:24 AM [facility] MCH 31.9 27.0 - 34.0 pg 08/04/2024 9:24 AM [facility] MCHC 31.7 30.0 - 35.0 g/dL 08/04/2024 9:24 AM T [facility] PLATELETS 178 140 - 440 K/uL 08/04/2024 9:24 AM [facility] MPV 10.0 8.9 - 12.8 fL 08/04/2024 9:24 AM [facility] RDW 18.4(H) 11.0 - 14.5 % 08/04/2024 9:24 AM [facility] RDW-STDEV 68.4(H) 37.0 - 54.0 fL 08/04/2024 9:24 AM [facility] Blood Venipuncture / Unknown 08/04/2024 9:09 AM CDT 08/04/2024 9:17 AM CDT us Lenin Amezquita MD HEMATOLOGY ORDERABLES Final Resu lt [facility] CLIA # [id number] [address] [address] * HCG QUANTITATIVE, BLOOD (08/04/2024 4:11 AM CDT) HCG QUANT, BLOOD 0.1 0.0 - 1.0 mIU/mL 08/04/2024 5:12 AM CDT [facility] [employer] [facility] Comment: HCG Quantitative Reference Range Male [...] Mclean MD CHEMISTRY ORDERABLES Final Res ult Performing Organization Address [facility] Co de Phone Number [facility] CLIA # [id number] [address] [place] [phone] * CTA CHEST W AND/OR WO CONTRAST [...] of2 resultswithin the time period is included. [facility] TSH 2.21 0.27 - 4.20 uIU/mL 08/02/2024 10:15 PM CDT [facility] Blood Venipuncture / Unknown 08/02/2024 9:23 PM CDT 08/02/2024 9:34 PM CDT Tiffanie Childress NP CHEMISTRY ORDERABLES Final Res ult [facility] CLIA # [id number] [address] [place] [address] * (ABNORMAL) VANCOMYCIN LEVEL TROUGH (07/30/2024 11:41 AM CDT) [facility] VANCOMYCIN, TROUGH 9.7(L) 10.0 - 17.0 ug/mL 07/30/2024 12:26 PM CDT [facility] Blood Venipuncture / Unknown 07/30/2024 11:41 AM CDT 07/30/2024 11:54 AM CDT us Jennifer Sanchez MD CHEMISTRY ORDERABLES Final Resu lt Performing Organization Address [facility] Co de Phone Number [facility] CLIA # [id number] [address] [place] [address] * PHOSPHORUS (07/29/2024 6:04 AM CDT) PHOSPHORUS 2.7 2.5 - 4.5 mg/dL 07/29/2024 6:50 AM CDT [facility] Blood Venipuncture / Unknown 07/29/2024 6:04 AM CDT 07/29/2024 6:08 AM CDT us Efraín Dey DO CHEMISTRY ORDERABLES Final R esult Performing Organization Address [facility] Co de Phone Number [facility] CLIA # [id number] [facility] [address] * (ABNORMAL) HEMOGLOBIN A1C (07/28/2024 9:29 PM CDT) HEMOGLOBIN A1C 8.9(H) <=5.6 % 07/30/2024 8:43 AM CDT [facility] [employer] [facility] EST. AVG GLUCOSE, A1C 209 mg/dL 07/30/2024 8:43 AM CDT [facility] Blood Venipuncture / Unknown 07/28/2024 9:29 PM CDT 07/28/2024 9:50 PM CDT Narrative [facility] - 07/30/2024 8:43 AM CDT HGB A1C INTERPRETATION NORMAL: <5.7% PRE-DIABETES: 5.7 - 6.4% DIABETES: 6.5% OR GREATER us Efraín Jahaira Dey DO CHEMISTRY ORDERABLES Final R esult [facility] CLIA # [id number] [address] [facility] [place] [address] * EXTRA TUBE (SST/GOLD) (07/28/2024 3:47 PM CDT) Blood Venipuncture / Unknown 07/28/2024 3:47 PM CDT 07/28/2024 3:56 PM CDT us Aki Briceno DO CHEMISTRY ORDERABLES Final Re sult Performing Organization Address [facility] Co de Phone Number [facility] CLIA # [id number] [address] [place] [address] * PNEUMONIA PATHOGEN PCR PANEL (07/23/2024 6:15 AM CDT) [facility] Pneumonia Pathogen PCR Panel NOT DETECTED No nucleic acids detected. 07/23/2024 1:18 PM CDT [facility] Sputum COUGHED SPUTUM SPECIMEN / Unknown Collection / Unknown 07/23/2024 6:15 AM CDT 07/23/2024 6:15 AM CDT Narrative [facility] - 07/23/2024 1:18 PM CDT NOTE: Per the reed fixer, this current lot of reagent may be insensitive for the full detection of adenoviruses. If adenovirus is within the differential diagnosis, the specimen may be submitted to a reference laboratory for further testing. If desired, order [id number] Lab Test, stating Adenovirus by PCR testing in the ordering comment and notify the Microbiology lab at [phone]. A negative result does not exclude the [...] ORDERABLE S Final Result Performing Organization Address City/[facility]/ZIP Co de Phone Number [facility] CLIA # [id number] [address] [place] [address] * SPUTUM CULTURE WITH GRAM STAIN (07/23/2024 6:15 AM CDT) CULTURE No pathogens isolated. Normal respiratory kota present. 07/25/2024 7:06 AM CDT [facility] GRAM STAIN Smear contains </=10 squamous epithelial cells per low power field 07/25/2024 7:06 AM CDT [facility] GRAM STAIN <25 PMN WBC/LPF 7:06 AM CDT [facility] GRAM STAIN Mixed kota with no predominate morphology 07/25/2024 7:06 AM CDT [facility] Sputum COUGHED SPUTUM SPECIMEN / Unknown Collection / Unknown 07/23/2024 6:15 AM CDT 07/23/2024 6:15 AM CDT Yasmeen Lovett MD MICROBIOLOGY - GENERAL ORDERABLE S Final Result [facility] # [id number] [address] [address] [place] [address] * Critical Care (07/21/2024 1:16 PM CDT) [...] not difficult Staffing Performed: Anesthesiologist (/) and INSPECTOR DIALS/CAA Authorized by: Aki Garcia MD Performed by: [...] RAPID SCREEN (07/14/2024 3:44 PM CDT) Pathologist [facility] MRSA PCR RESULT MRSA not detected MRSA not detected 07/14/2024 5:12 PM CDT [facility] Surveillance ANTERIOR NARES SWAB / Unknown Collection / Unknown 07/14/2024 3:44 PM CDT 07/14/2024 3:53 PM CDT Narrative [facility] - 07/14/2024 5:12 PM CDT [...] MICROBIOLOGY - GENERAL O RDERABLES Final Result [facility] CLIA # [id number] [address] [place] [address] * XR TIBIA AND FIBULA 2 VW RIGHT (07/14/2024 9:53 AM CDT) Anatomical Region Laterality Modality Lower [...] DOPPLER LEG RIGHT (07/14/2024 9:53 AM CDT) Anatomical Region Laterality Modality Lower Extremity Ultrasound 07/14/2024 9:47 AM CDT Narrative 07/15/2024 9:45 AM CDT [facility] Cardiovascular Services Noninvasive Vascular Laboratory [address] [place] [address] Noninvasive Vascular Lab Venous Exam Unilateral Lower Extremity Duplex Patient: Le Diaz Study ID: US VENOUS DOPPLE Gender: F : 1965 Age: 59 Room: Height: 165.1cm Weight: 95.3kg BSA: 2.13m^2 Pt status: Emergency Study Date: 07/14/2024 Study Time: 09:47:06 AM BSA: 2.13m^2 Ordering: Abel Singletary Interpreting:Prince Luana Schedule Maker: Kofi Leon Indications: Extremity Edema. Summary Impression: [...] Patent; Normal phasicity; spontaneous; compressible; normal augmentation [facility] Vascular Lab is accredited with the Intersocietal Commission for the Accreditation of Vascular Laboratories (ICAVL) Prepared and Electronically Authenticated Prince Luana Confirmed 07/15/2024 09:45 Procedure Note Prince Craft MD - 07/15/2024 [facility] Cardiovascular Services Noninvasive Vascular Laboratory [facility] [place] [address] Noninvasive Vascular Lab Venous Exam Unilateral Lower Extremity Duplex Patient: Le Diaz Study ID: US VENOUS DOPPLE Gender: F : 1965 Age: 59 Room: Height: 165.1cm Weight: 95.3kg BSA: 2.13m^2 Pt status: Emergency Study Date: 07/14/2024 Study Time: 09:47:06 AM BSA: 2.13m^2 Ordering: Abel Singletary Interpreting:Prince Luana Schedule Maker: Kofi Leon Indications: Extremity Edema. Summary Impression: [...] femoral Patent; Normal phasicity; spontaneous;compressible; normal augmentation [facility] Vascular Lab is accredited with the[facility] Commission for the Accreditation of Vascular Laboratories (ICAVL) Prepared and Electronically Authenticated Luana Nick Confirmed 07/15/2024 09:45 Abel Singletary MD US ORDERABLES Final Result * (ABNORMAL) SEDIMENTATION RATE (07/14/2024 8:51 AM CDT) [facility] ESR (SEDIMENTATION RATE) 52(H) 0 - 20 mm/Hr 07/14/2024 11:09 AM CDT [facility] Blood Venipuncture / Unknown 07/14/2024 8:51 AM CDT 07/14/2024 8:56 AM CDT Abel Singletary MD HEMATOLOGY ORDERABLES Final Re sult [facility] CLIA # [id number] [facility] [address] * (ABNORMAL) C-REACTIVE PROTEIN (07/14/2024 8:51 AM CDT) [facility] CRP 43.4(H) 0.0 - 5.0 mg/L 07/14/2024 11:11 AM CDT [facility] Blood Venipuncture / Unknown 07/14/2024 8:51 AM CDT 07/14/2024 8:56 AM CDT us Abel Singletary MD CHEMISTRY ORDERABLES Final Res ult [facility] SERVICES [facility] CLIA # [id number] [address] [address] * ECHOCARDIOGRAM W/ CONTRAST AGENT (07/06/2024 9:15 AM CDT) EJECTION FRACTION 50 INTERFACE SYSTEM 07/06/2024 8:26 AM CDT Narrative INTERFACE SYSTEM - 07/06/2024 3:59 PM CDT [facility] Services Echocardiography Laboratory [address] [place] [address] Transthoracic Echocardiography Patient: Le Diaz Study ID: ECHO COMPLETE - Gender: F : 1965 Age: 58 Room: [facility] Study Date: 07/06/2024 Pt Status: Inpatient Study Time: 08:26:26 AM RICK #: [id number] Ordering:Raúl Rod Schedule Maker: Brenda Almanza Indications and History: Check wall [...] (H) robbie values outside specified reference range. [facility] Echo Labs are accredited with the Intersocietal Accreditation Commission - Echocardiography. Prepared and Electronically Authenticated Raúl Rod Confirmed 07/06/2024 15:59 Procedure Note Raúl Rod MD - 07/06/2024 [facility] Cardiovascular Services Echocardiography Laboratory [address] [place] [address] Transthoracic Echocardiography Patient: Le Diaz Study ID: ECHOCOMPLETE - Gender: F : 1965 Age: 58 Room: [facility] Study Date: 07/06/2024 Pt Status: Inpatient Study Time: 08:26:26 AM [facility] #: [id number] Ordering:Raúl Rod Schedule Maker: Brenda Almanza Indications and History: Check wall [...] (H) robbie values outside specified reference range. [facility] Echo Labs are accredited with theBannersocietal Accreditation Commission - Echocardiography. Prepared and Electronically Authenticated Raúl Rod Confirmed 07/06/2024 15:59 Raúl Rod MD US ORDERABLES Final Result INTERFACE SYSTEM Refer to clinic/hospital department * (ABNORMAL) LIPID PANEL (02/19/2024 5:29 AM SUPPLY CHAIN TECH) [facility] CHOLESTEROL 188 <200 mg/dL 02/19/2024 10:25 AM [facility] TRIGLYCERIDE 104 <150 mg/dL 02/19/2024 10:25 AM [facility] HDL 36(L) 40 - 59 mg/dL 02/19/2024 10:25 AM [facility] LDL CALCULATED 131(H) <100 mg/dL 02/19/2024 10:25 AM [facility] NON-HDL CHOLESTEROL 152(H) <130 mg/dL 02/19/2024 10:25 AM [facility] Blood Venipuncture / Unknown 02/19/2024 5:29 AM SUPPLY CHAIN TECH 02/19/2024 5:34 AM Critical access hospital [employer] [facility] - 02/19/2024 10:25 AM [facility] TOTAL CHOLESTEROL mg/dL Desirable <200 Borderline [...] Artis MD CHEMISTRY ORDERABLES Final R esult Performing Organization Address City/[facility]/ZIP Co de Phone Number [facility] # [id number] [address] [place] [address] * MICROALBUMIN/CREATININE RATIO, RANDOM UR (02/26/2023 3:01 PM SUPPLY CHAIN TECH) Pathologist [facility] Creatinine, Urine 199 20 - 275 mg/dL [...] category. FASTING:UNKNOWN FASTING: UNKNOWN Test Performed at: [facility] [address] [place] [address] Emily Dumont MD Urine URINE SPECIMEN OBTAINED BY CLEAN CATCH PROCEDURE / Unknown 02/26/2023 3:01 PM SUPPLY CHAIN TECH 02/26/2023 3:02 PM SUPPLY CHAIN TECH Ryann Burk MD URINE ORDERABLES Final Result Performing Organization Address City/[facility]/ZIP Co de Phone Number [facility] [phone] [facility] [address] [place] [address] * CERV/VAG CYTO SCREEN PAP W/HPV (01/06/2023 12:00 AM CDT) CLINICAL INFORMATION [employer] Comment:None given LAST MENSTRUAL PERIOD [facility] Comment:NONE GIVEN PREV PAP: [facility] Comment:NONE GIVEN PREV BX: [facility] Comment:NONE GIVEN SOURCE [facility] Comment:ENDOCERVIX ADEQUACY: [facility] Comment: Satisfactory for evaluation. Endocervical/transformation zone component present. Age and/or menstrual status not provided PAP INTERP [facility] Comment: Cytology Results: Negative for intraepithelial lesion or malignancy. COMMENT (PAP TEST) [facility]est [facility] Comment: This Pap test has been evaluated with computer assisted technology. SURVEY MANAGER: Irving sneed [facility] Comment: BKA CT(ASCP) CT screening location: [place] [address] [place] [address] EXPLANATORY NOTE [facility] Comment: EXPLANATORY NOTE: The Pap is a [...] information. HPV E6/E7 Not Detected Not Detected [facility] Comment: Methodology: Satellite Television Installer-Mediated Amplification This assay detects E6/E7 viral messenger RNA (mRNA) from 14 high-risk HPV types (16,18,31,33,35,39,45,51,52,56,58,59,66,68). Cervical sources are required for HPV testing. If a vaginal source from a patient who has had a total hysterectomy with removal of cervix was submitted, please contact the testing laboratory for alternative testing options. For additional information, please refer to http://education.Route4Me/faq/FEF044c6 (This link if provided for information/ educational purposes only.) Test Performed at: [facility] [address] [place] [address] Emily TRAN Genital SWAB OF ENDOCERVIX / Unknown 01/06/2023 01/08/2023 10:07 AM CDT Ryann Burk MD PATHOLOGY/CYTOLOGY ORDERABLES Fi nal Result [facility] [phone] [facility] [address] [place] [address] * MAMMO DIAGNOSTIC UNI RIGHT W OR [...] right. We will await final pathology report. MIRANDA/zoey PATHOLOGY RESULTS REVIEWED 01/27/11: BENIGN. The biopsy [...] Date Heart Failure Problem 05/12/2024 Insurance [place] * Guarantor: LE DIAZ Account Type Relation to Patient Date of Phone Billing Address Personal/Family [address] [place] [address] RX INFOCROSSING Medicaid RX [employer] (INTERNAL) [facility] Internal Plans MEDICAID [facility] Advance Directives For more information, please contact: [phone] Documents on File Type Date Recorded Patient Expanded Function Dental Assistant Expl anation Advance Directive Living Will 07/23/2023 11:03 AM Advance Directive Living Will Advance Directive POA 07/23/2023 11:03 AM A dvance Directive POA * Full Code (Latest Code Status on File) Date Activated Date Inactivated Comments 10/01/2024 3:33 PM 10/03/2024 3:16 PM * Full Code Date Activated Date Inactivated Comments 09/12/2024 11:06 PM 09/15/2024 2:37 PM * Full Code Date Activated Date Inactivated Comments 08/30/2024 3:46 AM 08/30/2024 4:48 PM * Full Code Date Activated Date Inactivated Comments 08/22/2024 6:42 PM 08/26/2024 8:37 PM * Full Code Date Activated Date Inactivated Comments 08/18/2024 4:54 AM 08/18/2024 5:03 PM Care Teams Digital Color Press Operator Relationship Specialty Start Date End Date Delta Wade MD [address] [place] [address] PCP - General Family Practice 03/25/24
--- OUTSIDE RECORDS SUMMARY | 2024-10-04 18:27 | XMS_ITS | CCD ---
Author Name Interface, [id number] Address [facility] [place] [address] [facility] Address [address] [place] [address] Care Team Providers Care Avionics Systems Integration Specialist Name Role Phone Anika VALLADARES, Allen Unavailable Unavailable Allergies and Adverse Reactions Reason for Visit Medications Problems Social History
--- OUTSIDE RECORDS SUMMARY | 2024-10-04 18:27 | XMS_ITS | Encounter Summary ---
Author Organization [facility] Address [address] [place] [address] Care Team Providers Care Manufacturing Engineering Technologist Name Role Phone Delta Wade MD Primary Care Provider [phone] Encounter Details Date Type Department Care Team (Latest Contact Info) Description 08/04/2024 Results Follow-Up [facility] Emergency Department [address] [place] [address] Ayana Roman RN BLOOD CULTURE, [...] Never 06/13/2019 How often do you attend [facility] or denominational services? 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 Gender Identity Not on file Sexual Orientation Not on file documented as of this encounter Plan of Treatment Upcoming Encounters Date Type Department Care Team (Late st Contact Info) Description 10/06/2024 4:00 PM CDT Office Visit [facility] Pulmonology [address] [place] [address] Cristian Metcalf, CERTIFIED CORPORATE TRAVEL EXECUTIVE [address] [place] [address] 10/11/2024 2:30 PM CDT Office Visit [facility] Neurosurgery [address] [place] [address] Jerson Salas, ANDERS [address] [place] [address] 01/12/2025 1:40 PM CDT Office Visit [facility] [address] [place] [address] Tresa Stockton, CERTIFIED CORPORATE TRAVEL EXECUTIVE [address] [place] [address] documented as of this encounter [...] documented as of this encounter Care Teams Manufacturing Engineering Technologist Relationship Specialty Start Date End Date Delta Wade MD [address] [address] PCP - General Family Practice 03/25/24 documented as of this encounter
--- OUTSIDE RECORDS SUMMARY | 2024-10-04 18:28 | XMS_ITS | Patient Health Record ---
Author Organization [facility] Address [address] [place] [address] Care Team Providers Care Pv Design And Installation Technician Name Role Phone Delta Wade Primary Care Provider Unavailabl Jose Cruz Callejas Unavailable [phone] Marcia Perez Unavailable [phone] Gregorio Montes Unavailable [phone] Masoud Bello Unavailable [phone] Acacia Gaines Unavailable [phone] Hannah Rai Unavailable [phone] Allergies Allergen (clinical drug ingredient) Drug/Non Drug Allergy documented on EMR Reaction Allergy Type Onset Date Status Compazine Unknown Drug Allergy Active ketorolac Ketorolac Unknown Drug Allergy Active Results Component Value Reference Range Notes Echo Complete [id number] Reviewed date:11/30/2023 12:41:13 PM Interpretation: Performing Lab: Notes/Report: [id number] zzzHeart Cath Lt poss PTCA Reviewed date:11/30/2023 12:41:13 PM Interpretation: Performing Lab: Notes/Report: [id number]=iSite Schedule Confirmation Reviewed date:11/30/2023 12:40:58 PM Interpretation: Performing Lab: Notes/Report: Heart Cath Lt poss PTCA Schedule Confirmation Reviewed date:11/30/2023 12:40:58 PM Interpretation: Performing Lab: Notes/Report: Heart Cath Lt poss PTCA Echo Complete [id number] Reviewed date:11/30/2023 12:41:13 PM Interpretation: Performing Lab: Notes/Report: Cardiopulmonary Services Name: GIANFRANCO DIAZ Study Date: 11/27/2023 : 1965 Patient Location: [facility] Age: 58 yrs Gender: Female Height: 64 [...] This report was dictated outside of the Back[employer] system. 3523 @ 0100 Read See Below For Report NM HB Scan w/ejection fracti [id number] Reviewed date:01/05/2024 04:36:45 PM Interpretation: Performing Lab: Notes/Report: [id number] NM HB Scan w/ejection fracti on- Reviewed date:01/05/2024 04:37:06 PM Interpretation: Performing Lab: Notes/Report: See Below For Report NM HB Scan w/ejection fraction 2407 @ 2313 Read See Below For Report Prothrombin Time 63399 Reviewed date:05/16/2024 05:08:19 PM Interpretation: Performing Lab: Notes/Report: trop 2nd@ 205 3510 @ 0021 3510 @ 0021 ProTime 10.8 9.1-11.9 SEC Normal Range: 9.1-11.9 INR 1.02 .90-1.20 Therapeutic Range: 2.0-3.0 Therapaeutic Range for heart valve replacement: 2.5-3.50 Partial Thromboplastin Time 93388 Reviewed date:05/16/2024 05:08:19 PM Interpretation: Performing Lab: Notes/Report: trop 2nd@ 205 3510 @ 0021 3510 @ 0021 PTT 27.1 22.6-31.8 SEC Therapeutic Range: 60-100. Critical Value Starting at > 100. zzzHeart Cath Lt poss PTCA Reviewed date:05/16/2024 05:08:19 PM Interpretation: Performing Lab: Notes/Report: [id number]=iSite Schedule Confirmation Reviewed date:05/16/2024 05:08:19 PM Interpretation: Performing Lab: Notes/Report: Heart Cath Lt poss PTCA Schedule Confirmation Reviewed date:05/16/2024 05:08:19 PM Interpretation: Performing Lab: Notes/Report: Heart Cath Lt poss PTCA zzzHeart Cath Lt poss PTCA Reviewed date:05/16/2024 05:08:19 PM Interpretation: Performing Lab: Notes/Report: See Below For Report This report was dictated outside of the [employer] system. trop 2nd@ 205 3510 @ 0021 Read See Below For Report Schedule Confirmation Reviewed date:07/03/2024 04:23:35 PM Interpretation: Performing Lab: Notes/Report: CT Chest ION Endoluminal Schedule Confirmation Reviewed date:07/04/2024 04:08:48 PM Interpretation: Performing Lab: Notes/Report: CT Chest ION Endoluminal Schedule Confirmation Reviewed date:07/13/2024 07:16:00 PM Interpretation: Performing Lab: Notes/Report: CT Chest ION Endoluminal Schedule Confirmation Reviewed date:07/03/2024 04:23:35 PM Interpretation: Performing Lab: Notes/Report: CT Chest ION Endoluminal Reason For Referral Reason COPD; 06/07: 1 wk pe r Eula 06/07: Left Message SCHEDULED 06/20 @ 2:10 PM Diagnosis 1 Chronic obstructive pulmonary disease, unspecified (J44.9) Referring Provider First Name ER Referring Provider Last Name [facility] Referring Provider Speciality Emergency Medicine Referred Organization [facility] Referred Provider Jose Cruz Landry Referred Address [address] [place] [address] [address],[place], [place],[address], Referred Provider Specialty Pulmonary Di seases General Notes Joselin Lopez 03:08:20 PM >06/06: Gave Report to PRVDR to review, Joselin Lopez 06/07/2024 12:13:32 PM >06/07: 1 wk per John landry Marie 06/07/2024 02:24:10 [...] EVERY DAY Oral; Duration: 30 Days Active Immunizations Vaccine Route Administration Date Status Comme nts Influenza (whole), CPT 72136 Inactive Unknown 01/04/2024 Administered Social History Tobacco Use: Social History Observation Description Date Details (start date - stop date) Former Smoker NA - NA Social History Tobacco Use: Social Info Question Answer Notes Tobacco Control (Standard) Tobacco use: Former smoker How long has it been since you last smoked? 1-5 years Problems Problem Type SNOMED Code ICD Code Onset Dates Problem Status W/U Status Risk Notes Problem Tobacco user (231841464) Nicotine dependence, cigarettes, in remission (F17.211) Active confirmed Problem Ischemic cardiomyopathy (966315779) Ischemic cardiomyopathy (I25.5) Active confirmed Problem Chronic obstructive pulmonary disease (05409300) Chronic obstructive pulmonary disease, unspecified (J44.9) Active confirmed Problem Gastro-esophageal reflux disease without esophagitis (368238861) Gastro-esophageal reflux disease without esophagitis (K21.9) Active confirmed Problem C-reactive protein abnormal (087180646) Elevated C-reactive protein (CRP) (R79.82) Active confirmed Problem Solitary pulmonary nodule (915704974) Solitary pulmonary nodule (R91.1) Active confirmed Problem Long-term current use of anticoagulant (813667086) long term care administrator (current) use of anticoagulants (Z79.01) Active confirmed Problem Atherosclerotic heart disease of [place] coronary artery without angina pectoris (336563876055351) Arteriosclerosis of coronary artery (I25.10) Active confirmed Problem H/O heart artery stent (Z95.5) Active confirmed Problem Long-term current use of anticoagulant (770855232) Anticoagulated (Z79.01) Active confirmed Problem Angina (710669093) Atheroscleros is of [place] coronary artery of [place] heart with angina pectoris (I25.119) Active confirmed Problem Acute non-ST segment elevation myocardial infarction (128196938) Non-ST elevated myocardial infarction (I21.4) Active confirmed Problem History of pulmonary embolus (438412568) Hx of pulmonary embolus (Z86.711) Active confirmed Problem Coronary stent patent (683273857) Coronary stent patent (Z95.5) Active confirmed Problem Chronic respiratory failure (04951990) Chronic hypoxic respiratory failure (J96.11) Active confirmed [...] Encounters Encounter Location Date Provider Diagnosis [facility] [address] [place] [address] 06/20/2024 Jose Cruz Landry Solitary pulmonary nodule R91.1 ; Chronic hypoxic respiratory failure J96.11 ; Nicotine dependence, cigarettes, in remission F17.211 and Shortness of breath R06.02 [facility] [address] [place] [address] 02/17/2024 Gregorio Montes [facility] [place] [address] [place] [address] 06/06/2024 Masoud Bello Other fracture of unspecified lumbar vertebra, initial encounter for closed fracture S32.008A [facility] [address] [place] [address] [place] [address] 06/30/2024 Jose Cruz Landry Assessments Encounter Date Diagnosis (ICD Code) Assessment Notes Treatment Notes Treatment Clinical Notes Section Notes 06/06/2024 Other fracture of unspecified lumbar vertebra, [...] remission (ICD-10 - F17.211) Patient smoked a jelv-bjb-guw for 45 years. She has been abstinent for a year now. 06/20/2024 Shortness of breath (ICD-10 - R06.02) Obtain PFT. 06/20/2024 Other I, Jolene Toussaint, am scribing for, and in the presence of Dr. Jose Cruz Landry. I, Dr. Jsoe Cruz Landry, personally performed the services described in this documentation, as scribed by Jolene Toussaint in my presence, and it is both accurate and complete. Plan Of Treatment Pending Test Test Name Order Date Lumbosacral Spine AP/Lat-75896 5 PFT with FRC: (NO TGV) 06/20/2024 CT Chest ION Endoluminal-55276 5 Insurance Providers Payer Name Payer Address Payer Phone Subscriber Number Group Number Insured Name Patient Relationship to Insured Coverage Start Date Coverage End Date [place] Medicaid [address] [place] [address] [id number] JOE GIANFRANCO Self - patient is the insured Medical [...]
--- OUTSIDE RECORDS SUMMARY | 2024-10-04 18:29 | XMS_ITS | Encounter Summary ---
Author Organization [facility] Address [address] [place] [address] Care Team Providers Care Landscaping Specialist Name Role Phone Delta Wade MD Primary Care Provider [phone] Encounter Details Date Type Department Care Team (Late st Contact Info) Description 10/04/2024 Orders Only [facility] [address] [place] [address] Jerson Salas PA [address] [place] [address] Closed fracture of first lumbar vertebra, unspecified fracture morphology, initial encounter ([facility]) (Primary Dx) Social History Tobacco Use Types Packs/Day Years [...] How often do you attend chur or zoroastrianism services? 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 Gender Identity Not on file Sexual Orientation Not on file documented as of this encounter Plan of Treatment Upcoming Encounters Date Type Department Care Team (Late st Contact Info) Description 10/06/2024 4:00 PM CDT Office Visit [facility] [address] [place] [address] Cristian Metcalf, [facility] [address] [place] [address] 936- 10/11/2024 2:30 PM CDT Office Visit [facility] Neurosurgery [address] [place] [address] Jerson Slaas PA [address] [place] [address] 01/12/2025 1:40 PM CDT Office Visit [facility] [address] [place] [address] Tresa Stockton, [facility] [address] [place] [address] Scheduled Orders Name Type Priority Associated Diagnoses Orde r Schedule XR THORACOLUMBAR SPINE 2 VW Imaging Routine Closed fracture of first lumbar vertebra, unspecified fracture morphology, initial encounter ([facility]) 1 Occurrences starting 10/04/2024 until 10/04/2025 documented as of this encounter Goals Goal Patient Goal Type Associated Problems Recent Progress Patient-Stated? Author Heart Failure Goal Care Plan Heart Failure Problem No Latonya Anguiano LPN documented as of this encounter Visit Diagnoses Diagnosis Closed fracture of first lumbar vertebra, unspecified fracture morphology, initial encounter ([facility])- Primary documented in this encounter Additional Health Concerns Active Problems Noted Date Diagnosed Date Heart Failure Problem 05/12/2024 documented as of this encounter Care Teams Landscaping Specialist Relationship Specialty Start Date End Date Delta Wade MD [address] [id number] PCP - General Family Practice 03/25/24 documented as of this encounter
[2024-10-04 18:35] VITALS: BP 117/73; PULSE 94; RESP 16; TEMP 36.7; O2SAT 98
--- NOTE | 2024-10-04 19:48 | PC.NURSE ---
Lab informed METALLURGICAL ENGINEERING TEACHER that when lab attempted to draw blood pt refused, this nurse spoke to pt who states they can draw my blood Provider notified and states that pt is not to have pain medication if pt is not compliant with blood draw for medical workup. This nurse called lab and spoke to Rachell who voiced okay to inform lab staff to draw blood.
[2024-10-04 20:14] LABS: Hematocrit 39.6 % (36-47); Hemoglobin 12.20 g/dL (11.27-16.99); Mean Corpuscular HGB Conc 30.8 g/dL (30-55); Mean Corpuscular Hemoglobin 30.7 pg (27-33); Mean Corpuscular Volume 99.7 fl (85-98); Nucleated Red Blood Cells % 4.9 %; Platelet Count 168 10^3/cmm (157-399); Red Blood Count 3.97 10^6/uL (3.85-5.65); White Blood Count 6.59 10^3/uL (3.29-11.43)
[2024-10-04] MEDS: HYDROcodone-acetaminophen 5-325 mg Tablet 1 TAB PO (20:24)
[2024-10-04] MEDS: ondansetron hcl ODT 4 mg Tab PO (20:24)
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
[2024-10-04 20:33] LABS: Alanine Aminotransferase 27 U/L (0-33); Albumin Level 3.6 g/dL (3.5-5.2); Alkaline Phosphatase 104 U/L (35-105); Anion Gap 18.7 (5-19); Aspartate Amino Transferase 11 U/L (0-32); Blood Urea Nitrogen 16 mg/dL (6-20); Calcium 9.6 mg/dL (8.5-10.5); Carbon Dioxide 21 mmol/L (22-29); Chloride 105 mmol/L (98-107); Creatinine Clr Calc Pharmacy 132.8621; Globulin 3.0 g/dL (1.3-4.6); Glucose 267 mg/dL (65-115); Lipase 13 U/L (13-60); Osmolality Calculated 303 mOsm/kg (285-295); Potassium 3.7 mmol/L (3.5-5.1); Sodium 141 mmol/L (136-145); Total Protein 6.6 g/dL (6.6-8.7)
[2024-10-04 20:46] LABS: Slide Review Slide Review Perform
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
== END 2024-10-04 20:30 | disposition left against medical advice (07) ==
PROVIDERS: Emergency Medicine; Emergency Provider Registered Nurse; PCP Family Medicine
DX: R10.11 Right upper quadrant pain (principal); R11.2 Nausea with vomiting, unspecified; Z79.899 Other long term (current) drug therapy; Z79.84 Long term (current) use of oral hypoglycemic drugs; Z79.85 Long-term (current) use of injectable non-insulin antidiabetic drugs; Z79.01 Long term (current) use of anticoagulants; Z88.8 Allergy status to other drugs, medicaments and biological substances; Z87.891 Personal history of nicotine dependence; Z53.29 Procedure and treatment not carried out because of patient's decision for other reasons
CPT/HCPCS: 36415; 80053; 83690; 85025; 99284; J9999; Q0162

== ENCOUNTER 2024-10-12 02:39 | Emergency (ER) | payer MEDICAID, SELFPAY ==
--- OUTSIDE RECORDS SUMMARY | 2020-06-27 10:30 | XMS_ITS | Continuity of Care Document ---
Author Organization [facility] Address [address] [place] [address] Phone Care Team Providers Care Recreational Assistant Name Role Phone Unavailable Unavailable Unavailable Allergies, [...] - Active Procedures Procedure Date OFFICE/OUTPATIENT VISIT, [facility] Advance Directives Directive Yes / No Effective Date File Name No Information Encounters Encounter Description Practice Location Reason(s) For Visit Diagnoses Date Provider Providers Copied on Encounter OFFICE/OUTPA TIENT VISIT, [facility], [address], [place], [place], [address] , [place] tel: [phone] [facility] follow up (chief complaint) COPDEssential (primary) hypertensionAthero sclerotic cardiac diseaseTobacco use disorder, moderateCancer of vagina No Information Family History Family Member Type Diagnosis Age At Onset Mother Problem malignant neopla sm of breast in first degree relative Mother Problem coronary arteriosclerosis Sister Problem stroke Father Problem coronary arteriosclerosis Mother Problem hypertension Payers Payer name Insurance type Covered green party ID Authoriza dioni(s) Medicaid - Medical [id number] Social History Type Description Quantity Date Captured [...] her vagina and is being managed at [facility]. Patient has HTN, hip pain, and COPD.Patient [...] her vagina and is being managed at [facility]. Patient has HTN, hip pain, and COPD.Patient [...]
--- OUTSIDE RECORDS SUMMARY | 2024-07-19 03:00 | XMS_ITS ---
Author Organization [facility] Address [address] [place] [address] Care Team Providers Care Shift Foreman Name Role Phone Delta Wade Primary Care Provider Jose Cruz Harvey [phone] REASON FOR VISIT [phone] Encounters Encounter Location Date Provider Diagnosis [facility] [address] [place] [address] [place] [address] 07/19/2024 Jose Cruz Forde Plan Of Treatment No Information Progress Notes * GIANFRANCO DIAZDOB: 6 (59 yo F)Acc No.[id number]:07/19/2024 Pulmonary Function Test Patient: Jahaira GIANFRANCO HANNA Provider: Abdirahman Forde MD :1965 A ge:59 Y S ex:Female Date:07/19/2024 Address:[address] [place], [place] [phone] Pcp:Delta Wade Subjective: * Chief Complaints: * 6 [id number] Billing Information: * Procedure Codes: * Electronic signature of Natasha Forde MD on 10/12/2024 at 02:47 AM CDT Sign off status: Pending * Provider: Abdirahman Forde MD Date: 07/19/2024 Generated for Mani contreras/Moshe/eTransmitting on: 10/12/2024 02:47 AM CDT
--- OUTSIDE RECORDS SUMMARY | 2024-07-19 05:10 | XMS_ITS ---
Author Organization [facility] Address [address] [place] [address] Care Team Providers Care Chief Operator Synthesis Name Role Phone Delta Wade Primary Care Provider Jose Cruz Harvey [phone] REASON FOR VISIT abnormal chest CT Medications [...] Active Encounters Encounter Location Date Provider Diagnosis [facility] [address] [place] [address] [place] [address] 07/19/2024 Jose Cruz Forde Solitary pulmonary nodule [...] remission (ICD-10 - F17.211) Patient smoked a fuvc-xog-nel for 45 years. She has been abstinent [...] cigaret taiwo, in remission Patient smoked a bvdy-qff-soh for 45 yea rs. She has been [...] ION 07/08/24 but was hospitalized twice at [facility] and unable to complete her [...] DIAZ, GIANFRANCO PageDOB: 6 (59 yo F)Acc No.[id number]:07/19/2024 Progress Notes Patient: GIANFRANCO GARCIA Provider: Abdirahman Forde MD :1965 A ge:59 Y S ex:Female Date:07/19/2024 Address:[address] [place] [place], [place] [phone] Pcp:Delta Wade Subjective: * Chief Complaints: * [...] ION 07/08/24 but was hospitalized twice at [facility] and unable to complete her pre-surgical testing. ION rescheduled for 07/22/24 -ION CT. * ROS: [facility]te cain [facility] has been reviewed and scanned in [...] 1 TABLET BY MOUTH EVERY DAY Oral Ney-KdwlcfSDADNexxsck-Noeklhmrfimgz 5-325 MG Tablet TAKE 1 TABLET BY [...] cigarettes, in remission Notes: Patient smoked a lwet-acb-xhg for 45 years. She has been abstinent [...] of Natasha Forde MD on 10/12/2024 at 02:46 AM CDT Sign off status: Pending * Provider: Abdirahman Forde MD Date: 07/19/2024 Generated for Mani contreras/Moshe/Adrianitting on: 0 10/12/2024 02:46 AM CDT
--- OUTSIDE RECORDS SUMMARY | 2024-07-22 05:00 | XMS_ITS ---
Author Organization [facility] Address [address] [place] [address] Care Team Providers Care Generator Mechanic Name Role Phone Delta Wade Primary Care Provider Jose Cruz Harvey [phone] Encounters Encounter Location Date Provider Diagnosis [facility] [address] [place] [address] [place] [address] 07/22/2024 Jose Cruz Forde Plan Of Treatment No Information Progress Notes * GIANFRANCO DIAZDOB: [birth year] (59 yo F)Acc No.[id number]:07/22/2024 Patient: Jahaira HANNA GIANFRANCO Page Provider: Abdirahman Forde MD :1965 A ge:59 Y S ex:Female Date:07/22/2024 Address:[address] [place], [place] [phone] Pcp:Delta Wade * Electronic signature of Natasha Forde MD on 10/12/2024 at 02:48 AM CDT Sign off status: Pending * Provider: Abdirahman Forde MD Date: 07/22/2024 Generated for Printi ng/Faxing/eTransmitting on: 10/12/2024 02:48 AM CDT
--- OUTSIDE RECORDS SUMMARY | 2024-08-23 05:00 | XMS_ITS ---
Author Organization [facility] Address [address] [place] [phone] Care Team Providers Care Water Treatment Plant Engineer Name Role Phone ( [facility] ), PHYSICIAN NOT IDENTIFIED Primary Care Provider Unavailable Dominguez Mckay Unavailable [phone] REASON FOR VISIT TA - Filling Social History Sex Assigned At : Social History Observation Description Sex Assigned At Female Encounters Encounter Location Date Provider Diagnosis [address] [place] [address] Dental Clinic [address] [place] [phone] 08/23/2024 Dominguez Mckay Plan Of Treatment No Information Progress Notes * Zhang DIAZaDOB:1965 (59 yo F)Acc No.[id number]:08/23/2024 Patient: Le Colindres Provider: Jahaira Mckay DDS :1965 A ge:59 Y S ex:Female Date:08/23/2024 Address:[address] [place], [place] [phone] Pcp:PHYSICIAN NOT IDENTIFIED ( [facility] ) Subjective: * Chief Complaints: * T A - Filling Billing Information: * Procedure Codes: * Electronic signature of Jayda Mckay on 10/12/2024 at 02:46 AM CDT Sign off status: Pending * Provider: Jahaira Mckay DDS Date: 08/23/2024 Generated for Printi ng/Faxing/eTransmitting on: 10/12/2024 02:46 AM CDT
--- OUTSIDE RECORDS SUMMARY | 2024-09-07 03:30 | XMS_ITS ---
Author Organization [facility] Address [address] [place] [phone] Care Team Providers Care V Block Saw Operator Name Role Phone ( [facility] ), PHYSICIAN NOT IDENTIFIED Primary Care Provider Unavailable Dominguez Mckay Unavailable [phone] REASON FOR VISIT TA causing alot of [place]-pt wants filling done- told pt it was a limited not restore appt Social History Sex Assigned At : Social History Observation Description Sex Assigned At Female Encounters Encounter Location Date Provider Diagnosis [address] [place] [address] Dental Clinic [address] [place] [phone] 09/07/2024 Dominguez Mckay Plan Of Treatment No Information Progress Notes * Zhang DIAZIvettB:1965 (59 yo F)Acc No.[id number]:09/07/2024 Patient: Le Colindres Provider: Jahaira Mckay DDS :1965 A ge:59 Y S ex:Female Date:09/07/2024 Address:[address] [place], [place] [id number] Pcp:PHYSICIAN NOT IDENTIFIED ( [facility] ) Subjective: * Chief Complaints: * T A causing alot of [place]-pt wants filling done- told pt it was a limited not restore appt Billing Information: * Procedure Codes: * Electronic signature of Jayda Mckay on 10/12/2024 at 02:45 AM CDT Sign off status: Pending * Provider: Jahaira Mckay DDS Date: 0 09/07/2024 Generated for Mani contreras/Moshe/Binta on: 0 10/12/2024 02:45 AM CDT
--- OUTSIDE RECORDS SUMMARY | 2024-10-08 18:07 | XMS_ITS | Encounter Summary ---
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 provide relief - Ordered laboratory studies including cardiac enzymes, BNP, CBC, CMP - Will consider additional imaging based on initial lab results - Patient likely requires admission for further evaluation and management given the severity of symptoms and complex medical history Amount and/or Complexity of Data Reviewed Labs: ordered. Details: Patient has initial troponin of 26, there is a delta troponin of 0, BNP is 300 which is lower than her norml, D-dimer is negative Radiology: ordered. Details: No evidence of heart failure ECG/medicine tests: ordered. Discussion of management or test interpretation with external provider(s): Patient's laboratory studies and exam are consistent with a COPD exacerbation, patient does not have any other significant findings at this time, I do not find a reason to admit the patient to the hospital, we will need to discharge the patient home with steroids and antibiotics, we will have her follow-up with her primarycare provider, if she has any worsening symptoms she will need to return immediately to the emergency department for reevaluation. Risk OTC drugs. Prescription drug management. Clinical Scoring & Consults Medications Administered During the ED Stay from 10/08/2024 1651 to 10/09/2024 0202 Date/Time Order Dose Route Action 10/08/2024 184 CDT aluminum - magnesium - simethicone (MYLANTA) 200-200-20 mg/5 mL oral mL 20 mL Oral Refused 10/08/2024 184 CDT lidocaine (XYLOCAINE) 2 % viscous oral solution 10 mL 10 mL Oral Refused 10/08/2024 1856 CDT ondansetron (ZOFRAN) 4 mg/2 mL injection 4 mg 4 mg IV Given 10/08/2024 1854 CDT HYDROmorphone (PF) (DILAUDID) injection 0.5 mg 0.5 mg IV Given 10/08/2024 2227 CDT doxycycline hyclate (VIBRAMYCIN) capsule 100 mg 100 mg Oral Given 10/08/2024 2227 CDT predniSONE (DELTASONE) tablet 40 mg 40 mg Oral Given Discharge Medication List as of 10/08/2024 10:13 PM START taking these medications Details predniSONE (DELTASONE) 20 mg tablet 2 tabs po daily for 5 days, Disp-10 Tablet, R-0 doxycycline hyclate (VIBRAMYCIN) 100 mg tablet Take 1 Tablet (100 mg) by mouth 2 times daily., Disp-20 Tablet, R-0 CONTINUE these medications which have NOT CHANGED Details Lidocaine 4 % Adhesive Patch, Medicated Back pain, Disp-6 Patch, R-0 empagliflozin (JARDIANCE) 10 mg tablet Take 1 Tablet (10 mg) by mouth daily in the morning., Disp-30 Tablet, R-0 metoprolol succinate (TOPROL XL) 25 mg Extended Release 24 hour tablet Take 1 Tablet (25 mg) by mouth daily., Disp-30 Tablet, R-0 sacubitriL-valsartan (ENTRESTO) 24-26 mg Tablet Take 1 Tablet by mouth 2 times daily., Disp-60 Tablet, R-0 furosemide (LASIX) 40 mg tablet Take 1 Tablet (40 mg) by mouth daily., Disp-30 Tablet, R-1 ipratropium-albuteroL (DUONEB) 0.5 mg-3 mg(2.5 mg base)/3 mL Solution for Nebulization Take 3 mL byinhalation every 4 hours as needed for Shortness of Breath., Disp-300 mL, R-1 Nebulizer & Compressor For Neb Device every 4 hours as needed for Other (See Comment) (shortness of breath)., Disp-1 Each, R-0 ranolazine ER (RANEXA) 500 mg Extended Release 12 hour tablet Take 1 Tablet (500 mg) by mouth every12 hours., Disp-60 Tablet, R-1 budesonide 160 mcg-glycopyr 9 mcg-formot 4.8 mcg/actuation HFA inhaler Take 2 Puffs by inhalation 2times daily., Disp-60 Each, R-1 levalbuterol (XOPENEX) 1.25 mg/3 mL Solution for Nebulization Take 1.25 mg by inhalation every 6 hours as needed for Shortness of Breath or Wheezing. triamcinolone acetonide (KENALOG) 0.1 % Ointment Apply to affected area 2 times daily as needed forOther (See Comment) (rash)., Disp-10 Gram, R-0 insulin lispro (HumaLOG,ADMELOG) 100 unit/mL pen syringe Inject 14 Units by subcutaneous injection 3 times daily with meals. Lantus Solostar U-100 Insulin 100 unit/mL (3 mL) solution for injection Inject 25 Units by subcutaneous injection daily at bedtime., PRASAD oxygen home delivery Home Oxygen Concentrator yes at 3 L/M Rest, 3 L/M Activity, 3 L/M Sleep, Delivery Device: Nasal Cannula Portability: yes, 3 L/M Rest, L/M Activity, May provide device best for patient needs(E system,home fill, conserving device) Length of Need: 99 months, Disp-1 Each, R-0 oxyCODONE-acetaminophen (PERCOCET) 5-325 mg tablet Take 1 Tablet by mouth every 6 hours as needed. Ventolin HFA 90 mcg/actuation inhaler Take 2 Puffs by inhalation every 6 hours as needed., PRASAD isosorbide mononitrate (IMDUR) 30 mg Extended Release 24 hour tablet TAKE 1 TABLET BY MOUTH EVERY DAY, Disp-30 Tablet, R-1 amLODIPine (NORVASC) 2.5 mg tablet Take 2.5 [...] every 8 hours as needed for Anxiety., Disp-20 Tablet, R-0 warfarin (COUMADIN) 10 mg tablet Take 1 Tablet by mouth daily. fluorouraciL (EFUDEX) 5 % Cream APPLY TO AFFCETED AREA TWICE A DAY FOR 4 WEEKS promethazine-dextromethorphan (PHENERGAN-DM) 6.25-15 mg/5 mL syrup Take 10 mL by mouth every 4 hours as needed for Cough. buPROPion HCL (WELLBUTRIN XL) 300 mg Extended Release 24 hour tablet Take 1 Tablet by mouth daily. portable oxygen Face to Face completed within 30 days: yes Length of Need: 99 months By: Nasal Cannula Continuously at 3 L/min., Disp-1 Each, R-0 TechLITE Pen Needle 29 gauge x 1/2 Needle USE directed with Josie., PRASAD naloxone (NARCAN) 4 mg/spray [place], Non-Aerosol EMERGENCY USE ONLY: Administer 1 spray (4 mg) in one nostril one time. May repeat in alternating nostrils every 2-3 min until responsive or EMS arrives., Disp-2 Each, R-3 blood sugar diagnostic Strip Use to test blood glucose up to QID PRN symptoms.Did not like OneTouchVerio. Please provide per insurance preference.Disp-100 Each, R-11 OneTouch Delica Plus Lancet 30 gauge USE TO test fasting blood glucose DAILY, PRASAD Blood-Glucose Meter Kit Use to test blood glucose up to TID PRN symptoms.Pt did not like OneTouch Verio. Please supply per insurance preference.Disp-1 Each, R-0 LAST VS BP: 111/89 (10/08/242199), Heart Rate: 96 bpm (10/08/242199), Resp: 25 (10/08/242199), Pulse: 96(10/08/242199), Temp: 97.1 ??F (36.2 ??C) (10/08/241699), Temp src: Temporal (10/08/241699), SpO2: 96 % (10/08/242199) CLINICAL IMPRESSION Final diagnoses: [J44.1] COPD with exacerbation (CMS/[facility]) (Primary) DISPOSITION, EDUCATION AND MEDICATION RECONCILIATION Medications reconciled. See after visit summary for patient education on discharged patients. ED Disposition ED Disposition Discharge Condition Stable User Anderson Marie DO Date/Time Sat Oct 08, 2024 10:06 PM Comment -- ATTESTATION STATEMENTS documented in this encounter Miscellaneous Notes * ED Bed Hold Comment Note - Vashti Zapata RN - 10/08/2024 6:07 PM CDT Bed: D Expected date: 10/08/24 Expected time: 5:38 PM Means of arrival: Comments: Triage documented in this encounter Plan of Treatment Upcoming Encounters Date Type Department Care Team (Late st Contact Info) Description 11/14/2024 3:30 PM CDT Office Visit [facility] [address] [place] [address] Jerson Salas PA [address] [place] [address] 01/12/2025 1:40 PM CDT [facility] [address] [place] [address] Tresa Stockton, H[employer] SLA[employer]TERER [address] [place] [address] documented as of this encounter Goals Goal Patient Goal Type Associated Problems Recent Progress Patient-Stated? Author Heart Failure Goal Care Plan Heart Failure Problem No Latonya Anguiano LPN documented as of this encounter Procedures Procedure Name Priority Date/Time Associated Diagnosis Comments TROPONIN 2 HR, 5TH GEN Timed Study 10/08/2024 8:52 PM CDT D-DIMER Stat 10/08/2024 8:52 PM CDT XR CHEST PA OR AP 1 VW Stat 10/08/2024 6:22 PM CDT INFLUENZA A/B, RSV AND COVID-19 PCR PANEL Stat 10/08/2024 5:38 PM CDT INFLUENZA A/B, RSV AND COVID-19 PCR PANEL Stat 10/08/2024 5:38 PM CDT TROPONIN BASELINE, 5TH GEN Stat 10/08/2024 5:38 PM CDT DIFFERENTIAL, MANUAL Stat 10/08/2024 5:38 PM CDT CBC WITH DIFFERENTIAL Stat 10/08/2024 5:38 PM CDT BRAIN NATRIURETIC PEPTIDE, BNP OR PROBNP Stat 10/08/2024 5:38 PM CDT MAGNESIUM LEVEL Stat 10/08/2024 5:38 PM CDT COMPREHENSIVE METABOLIC PANEL Stat 10/08/2024 5:38 PM CDT EKG 12-LEAD Stat 10/08/2024 5:06 PM CDT documented in this encounter Results * D-DIMER (10/08/2024 8:52 PM CDT) [facility] D-DIMER QUANT <0.27 0.00 - 0.50 ug/mL FEU 10/08/2024 9:19 PM CDT [facility] Blood Venipuncture / Unknown 10/08/2024 8:52 PM CDT 10/08/2024 9:04 PM CDT Narrative [facility] - 10/08/2024 9:19 PM CDT D-Dimer assay cutoff value for [...] FEU 71-80 years: 0.71-0.80 ug/mL FEU us Anderson Marie DO HEMATOLOGY ORDERABLES Fin al Result [facility] CLIA # [id number] [address] [place] [address] [place], [place] [id number] * (ABNORMAL) TROPONIN 2 HR, 5TH GEN (10/08/2024 8:52 PM CDT) [facility] TROPONIN T, 2 HR 5TH GEN 26(H) <=10 ng/L 10/08/2024 9:48 PM CDT [facility] DELTA 2HR TROPONIN T 0 See Interp. 10/08/2024 9:48 PM CDT [facility] Blood Venipuncture / Unknown 10/08/2024 8:52 PM CDT 10/08/2024 9:05 PM CDT Narrative [facility] - 10/08/2024 9:48 PM CDT Troponin elevated. Delta not changing. Delay in collection of timed specimen beyond recommended collection interval. Results must be interpreted in clinical context. Nat MCNAMARA-C CHEMISTRY ORDERABLES Final R esult [facility] CLIA # [id number] [address] [place] [address] * XR CHEST PA OR AP 1 VW (10/08/2024 6:22 PM CDT) Anatomical Region Laterality Modality Chest Computed Radiogr aphy 10/08/2024 6:22 PM CDT Impressions 10/08/2024 6:46 PM CDT Impression: No evidence of infiltrates. Narrative 10/08/2024 6:46 PM CDT Exam: XR CHEST PA OR AP 1 VW Date/Time of Exam: 10/08/2024 6:22 PM Reason For Exam: Cough Diagnosis: See Reason for Exam The heart size is normal. The lungs are clear. No pneumothorax is seen. Procedure Note Scooby Mcgwoan MD - 10/08/2024 Exam: XR CHEST PA OR AP 1 VW Date/Time of Exam: 10/08/2024 6:22 PM Reason For Exam: Cough Diagnosis: See Reason for Exam The heart size is normal. The lungs are clear. No pneumothorax is seen. Impression: No evidence of infiltrates. us Nat Baez PA-C DIAGNOSTIC IMAGING ORDERABLE S Final Result * MANUAL DIFFERENTIAL (10/08/2024 5:38 PM CDT) [facility] PLATELET EST. Adequate 10/08/2024 6:23 PM CDT [facility] ANISOCYTOSIS 1+ /hpf 10/08/2024 6:23 PM CDT [facility] POLYCHROMASIA 1+ /hpf 10/08/2024 6:23 PM CDT [facility] COTTON-JOLLY BODIES Present /hpf 10/08/2024 6:23 PM CDT [facility] Blood Venipuncture / Unknown 10/08/2024 5:38 PM CDT 10/08/2024 5:49 PM CDT Nat Baez PA-C HEMATOLOGY ORDERABLES COM Fi nal Result [facility] CLIA # [id number] [address] [place] [address] * INFLUENZA A/B, RSV AND COVID-19 PCR PANEL (10/08/2024 5:38 PM CDT) [facility] COVID-19 PCR NOT DETECTED Not Detected 10/09/19 6:38 PM CDT [facility] Influenza A by PCR NOT DETECTED Not Detected 10/08/2024 6:38 PM CDT [facility] Influenza B by PCR NOT DETECTED Not Detected 10/08/2024 6:38 PM CDT [facility] RSV by PCR NOT DETECTED Not Detected 10/08/2024 6:38 PM CDT [facility] Upper Respiratory ENTIRE NASOPHARYNX / Unknown Collection / Unknown 10/08/2024 5:38 PM CDT 10/08/2024 5:49 PM CDT Narrative [facility] - 10/08/2024 6:38 PM CDT This test has been authorized by the FDA under an Emergency Use Authorization for use by authorized laboratories. This test has been validated in accordance with the FDA's guidance regarding Coronavirus Disease-2019 testing. Optimum specimen types and timing for peak viral levels during infection have not been determined. A negative RT-PCR result does not rule out infection with the 2019-Novel Coronavirus. Natkeara MCNAMARA-C MICROBIOLOGY - GENERAL ORDER JANAY Final Result Performing Organization Address [facility] Co de Phone Number [facility] JEDI M[facility] CLIA # [id number] [id number] [place] [address] * MAGNESIUM LEVEL (10/08/2024 5:38 PM CDT) MAGNESIUM 1.7 1.6 - 2.6 mg/dL 10/08/2024 6:33 PM CDT [facility] Blood Venipuncture / Unknown 10/08/2024 5:38 PM CDT 10/08/2024 5:55 PM CDT [employer] PA-C CHEMISTRY ORDERABLES Final R esult Performing Organization Address [facility] Co de Phone Number [facility] CLIA # [id number] [address] [address] * (ABNORMAL) BRAIN NATRIURETIC PEPTIDE, BNP OR PROBNP (10/08/2024 5:38 PM CDT) PROBNP, N TERMINAL 300(H) 0 - 125 pg/mL 10/08/2024 6:32 PM CDT [facility] Comment: INTERPRETIVE COMMENT based on diagnosis: [...] years: >1800 pg/mL Blood Venipuncture / Unknown 10/08/2024 5:38 PM CDT 10/08/2024 5:55 PM CDT Nat [employer] CHEMISTRY ORDERABLES Final R esult Performing Organization Address [facility] Co de Phone Number [facility] CLIA # [id number] [address] [facility] [place] [address] * (ABNORMAL) TROPONIN BASELINE, 5TH GEN (10/08/2024 5:38 PM CDT) TROPONIN T, BASELINE 5TH GEN 26(H) <=10 ng/L 10/08/2024 6:32 PM CDT [facility] Comment:Hemolysis can falsel y decrease Troponin quantitation. Blood Venipuncture / Unknown 10/08/2024 5:38 PM CDT 10/08/2024 5:55 PM CDT Narrative [facility] - 10/08/2024 6:32 PM CDT Troponin elevated. [place] CHEMISTRY ORDERABLES Final R esult Performing Organization Address [facility] Co de Phone Number [facility] CLIA # [id number] [address] [facility] [place] [address] * (ABNORMAL) COMPREHENSIVE METABOLIC PANEL (10/08/2024 5:38 PM CDT) SODIUM 140 136 - 145 mmol/L 10/08/2024 6:33 PM CDT [facility] POTASSIUM 4.0 3.5 - 5.1 mmol/L 10/08/2024 6:33 PM CDT [facility] Comment:Moderate hemolysis p resent. Can cause significant falsely elevated result. Redraw if indicated. CHLORIDE 104 98 - 107 mmol/L 10/08/2024 6:33 PM [facility] CO2 21(L) 22 - 29 mmol/L 10/08/2024 6:33 PM [facility] CALCIUM 9.7 8.6 - 10.0 mg/dL 10/08/2024 6:33 PM [facility] BUN 12 6 - 20 mg/dL 10/08/2024 6:33 PM [facility] CREATININE 0.49(L) 0.51 - 0.95 mg/dL 10/08/2024 6:33 PM [facility] GLUCOSE 187(H) 74 - 99 mg/dL 10/08/2024 6:33 PM [facility] TOTAL PROTEIN 6.8 6.4 - 8.3 g/dL 10/08/2024 6:33 PM [facility] ALBUMIN 3.5 3.5 - 5.2 g/dL 10/08/2024 6:33 PM [facility] BILIRUBIN TOTAL 0.2 0.0 - 1.0 mg/dL 10/08/2024 6:33 PM [facility] ALKALINE PHOSPHATASE 118(H) 35 - 104 U/L 10/08/2024 6:33 PM [facility] AST 31 10 - 35 U/L 10/08/2024 6:33 PM [facility] Comment:Hemolysis present. R esult may be falsely elevated. ALT 35 <=35 U/L 10/08/2024 6:33 PM [facility] Comment:Hemolysis present. R esult may be falsely elevated. GFR >60 >=60 mL/min/1. 73 sq meter 10/08/2024 6:33 PM [facility] Comment:eGFR calculated with 2020 CKD-EPI equation. Vegetarian diet, extremely high or low muscle mass, and may affect results. Cystatin C with Glomerular Filtration Rate is a suitable alternative for these patients. ANION GAP 15 9 - 20 mmol/L 10/08/2024 6:33 PM CDT [facility] Blood Venipuncture / Unknown 10/08/2024 5:38 PM CDT 10/08/2024 5:55 PM CDT Nat Baez PA-C CHEMISTRY ORDERABLES Final R esult [facility] CLIA # [id number] [address] [place] [address] [place] [address] * (ABNORMAL) CBC WITH DIFFERENTIAL (10/08/2024 5:38 PM CDT) WBC 4.9 4.8 - 10.8 K/uL 10/08/2024 6:23 PM CDT [facility] NRBCS 5(H) <1 % 10/08/2024 6:23 PM CDT [facility] RBC 3.78(L) 4.20 - 5.40 M/uL 10/08/2024 6:23 PM CDT [facility] HEMOGLOBIN 11.4(L) 12.0 - 16.0 g/dL 10/08/2024 6:23 PM CDT [facility] HEMATOCRIT 38.1 36.0 - 46.0 % 10/08/2024 6:23 PM CDT [facility] MCV 100.8 84.0 - 103.0 fL 10/08/2024 6:23 PM CDT [facility] MCH 30.2 27.0 - 34.0 pg 10/08/2024 6:23 PM CDT [facility] MCHC 29.9(L) 30.0 - 35.0 g/dL 10/08/2024 6:23 PM CDT [facility] PLATELETS 151 140 - 440 K/uL 10/08/2024 6:23 PM CDT [facility] MPV 11.8 8.9 - 12.8 fL 10/08/2024 6:23 PM CDT [facility] RDW 18.5(H) 11.0 - 14.5 % 10/08/2024 6:23 PM [facility] RDW-STDEV 68.1(H) 37.0 - 54.0 fL 10/08/2024 6:23 PM [facility] NEUTROPHILS 39(L) 42 - 75 % 10/08/2024 6:23 PM [facility] LYMPHOCYTES 42 24 - 44 % 10/08/2024 6:23 PM [facility] MONOCYTES 16(H) 2 - 10 % 10/08/2024 6:23 PM [facility] EOSINOPHILS 1 0 - 7 % 10/08/2024 6:23 PM [facility] BASOPHILS 1 0 - 1 % 10/08/2024 6:23 PM [facility] IMMATURE GRANULOCYTES 1 0 - 2 % 10/08/2024 6:23 PM [facility] NEUTROPHIL ABSOLUTE 1.93(L) 2.00 - 8.00 K/uL 10/08/2024 6:23 PM [facility] LYMPHOCYTE ABSOLUTE 2.05 1.20 - 4.00 K/uL 10/08/2024 6:23 PM [facility] MONOCYTE ABSOLUTE 0.79(H) 0.10 - 0.60 K/uL 10/08/2024 6:23 PM [facility] EOSINOPHIL ABSOLUTE 0.06 0.00 - 0.70 K/uL 10/08/2024 6:23 PM [facility] BASOPHILS ABSOLUTE 0.03 0.00 - 0.20 K/uL 10/08/2024 6:23 PM [facility] IMMATURE GRANULOCYTES ABSOLUTE 0.07 0.00 - 0.10 K/uL 10/08/2024 6:23 PM [facility] SMEAR REVIEWED: SR - See Smear Review on Manual Diff. 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: [id number] : 1965 Requested By: Order Number: [id number] Reading MD: Echo Tapia Measurements Intervals [place] Rate: 107 P: 0 MN: 152 QRS: 49 QRSD: 80 T: -29 QT: 336 QTc: 448 Interpretive Statements ectopic atrial rhythm with premature supraventricular complexes Possible Inferior infarct, age undetermined Abnormal ECG Electronically Signed On 10-09-2024 13:22:00 CDT by Echo Tapia Procedure Note Provider, Historical - 10/09/2024 [facility] [address] [place] [address] Test Date: 2024-10-08 Pat Name: GIANFRANCO DIAZ Department: 11 Room: 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: [id number] : 1965 Requested By: Order Number: [id number] Reading VALENTE Tapia Measurements Intervals [place] Rate: 107 P: 0 MN: 152 QRS: 49 QRSD: 80 T: -29 QT: 336 QTc: 448 Interpretive Statements ectopic atrial rhythm with premature supraventricular complexes Possible Inferior infarct, age undetermined Abnormal ECG Electronically Signed On 10-09-2024 13:22:00 CDT by Echo Tapia us Anderson Marie DO ECG ORDERABLES Final Res ult INTERFACE SYSTEM Refer to clinic/hospital department documented in this encounter Visit Diagnoses Diagnosis COPD with exacerbation (CMS/HCC)- Primary Obstructive chronic bronchitis with exacerbation documented in this encounter Administered Medications Inactive Administered Medications - up to 3 most recent administrations Medication Order MAR Action Action Date Dose Rate Site doxycycline hyclate (VIBRAMYCIN) capsule 100 mg 100 mg, Oral, ONE TIME ONLY, 1 dose, On 10/08/24 at 2230, Routine, Antibiotic Indication: Pneumonia - CAP w/MDR risk factors Given 10/08/2024 10:27 PM CDT 100 mg HYDROmorphone (PF) (DILAUDID) injection 0.5 mg 0.5 mg, IV, ONE TIME ONLY, 1 dose, On 10/08/24 at 1845, Routine Given 10/08/2024 6:54 PM CDT 0.5 mg ondansetron (ZOFRAN) 4 mg/2 mL injection 4 mg 4 mg, IV, ONE TIME ONLY, 1 dose, On 10/08/24 at 1845, Routine Given 10/08/2024 6:56 PM CDT 4 mg predniSONE (DELTASONE) tablet 40 mg 40 mg, Oral, ONE TIME ONLY, 1 dose, On 10/08/24 at 2230, Routine Given 10/08/2024 10:27 PM CDT 40 mg documented in this encounter Active and Recently Administered Medications Times are shown in CDT. Scheduled Medication Order 10/06/2024 10/07/2024 10/08/2024 aluminum - magnesium - simethicone (MYLANTA) 200-200-20 mg/5 mL oral suspension 20 mL(Linked Group 1) 20 mL, Oral, ONE TIME ONLY, 1 dose, On 10/08/24 at 1845, Routine 1845 (Refused - Prov ider: Rossi Claros RN) doxycycline hyclate (VIBRAMYCIN) capsule 100 mg (COMPLETED) 100 mg, Oral, ONE TIME ONLY, 1 dose, On 10/08/24 at 2230, Routine, Antibiotic Indication: Pneumonia - CAP w/MDR risk factors 2226 (Given - Provid er: Rossi Claros RN) HYDROmorphone (PF) (DILAUDID) injection 0.5 mg (COMPLETED) 0.5 mg, IV, ONE TIME ONLY, 1 dose, On 10/08/24 at 1845, Routine 1854 (Given - Provid er: Tisha Ma LPN) lidocaine (XYLOCAINE) 2 % viscous oral solution 10 mL(Linked Group 1) 10 mL, Oral, ONE TIME ONLY, 1 dose, On 10/08/24 at 1845, Routine 1845 (Refused - Prov ider: Rossi Claros RN) ondansetron (ZOFRAN) 4 mg/2 mL injection 4 mg (COMPLETED) 4 mg, IV, ONE TIME ONLY, 1 dose, On 10/08/24 at 1845, Routine 1856 (Given - Provid er: Tisha Ma LPN) predniSONE (DELTASONE) tablet 40 mg (COMPLETED) 40 mg, Oral, ONE TIME ONLY, 1 dose, On 10/08/24 at 2230, Routine 2227 (Given - Provid er: Rossi Claros RN) Linked Groups Order Group 1: aluminum - magnesium - simethicone (MYLANTA) 200-200-20 mg/5 mL oral suspension 20 mLJump to med 20 mL, Oral, ONE TIME ONLY, 1 dose, On 10/08/24 at 1845, Routine And lidocaine (XYLOCAINE) 2 % viscous oral solution 10 mLJump to med 10 mL, Oral, ONE TIME ONLY, 1 dose, On 10/08/24 at 1845, Routine documented in this encounter Additional Health Concerns Active Problems Noted Date Diagnosed Date Heart Failure Problem 05/12/2024 Infection Onset Date Last Indicated Resolved Time R/O COVID-19 10/08/2024 10/08/2024 10/08/2024 6:38 PM CDT documented as of this encounter Care Teams Sourcing Analyst Relationship Specialty Start Date End Date Delta Wade MD [address] [place] [id number] PCP - General Family Practice 03/25/24 documented as of this encounter
--- OUTSIDE RECORDS SUMMARY | 2024-10-10 03:33 | XMS_ITS | Encounter Summary ---
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 for this encounter. on 10/10/2024 3:33 AM. Patient is on a 3L NC which is what she uses at home. Social History Tobacco Use Smoking status: Former Average packs/day: 1 pack/day for 43.0 years (43.0 ttl pk-yrs) Types: Cigarettes Start date: 07/21/2022 Smokeless tobacco: Never Vaping Use Vaping status: Never Used Substance Use Topics Alcohol use: No Drug use: No Prior to Admission medications Medication Sig Start Date End Date Taking? Authorizing Provider predniSONE (DELTASONE) 10 mg tablet Take 10 mg by mouth see administration instructions. 4 TABS DAILY X 5 DAYS, 3 TABS DAILY X 5 DAYS, 2 DAILY FOR 5 DAYS THEN 1 DAILY FOR 5 DAYS THEN STOP 09/25/24 10/15/24 Yes Provider, Historical HYDROcodone-acetaminophen (NORCO) 7.5-325 mg Tablet Take 1 Tablet by mouth every 8 hours as needed for Pain, Moderate or Pain, Severe. Yes Provider, Historical enoxaparin (LOVENOX) 100 mg/mL injection Inject 100 mg by subcutaneous injection every 12 hours. 09/29/24 Yes Provider, Historical doxycycline hyclate (VIBRAMYCIN) 100 mg tablet Take 1 Tablet (100 mg) by mouth 2 times daily. 10/08/24 Yes Anderson Marie, empagliflozin (JARDIANCE) 10 mg tablet Take 1 Tablet (10 mg) by mouth daily in the morning. 10/04/24Yes Li Box MD metoprolol succinate (TOPROL XL) 25 mg Extended Release 24 hour tablet Take 1 Tablet (25 mg) by mouth daily. 10/03/24 Yes Li Box MD furosemide (LASIX) 40 mg tablet Take 1 Tablet (40 mg) by mouth daily. 09/16/24 Yes Michael Tovar MD ipratropium-albuteroL (DUONEB) 0.5 mg-3 mg(2.5 mg base)/3 mL Solution for Nebulization Take 3 mL byinhalation every 4 hours as needed for Shortness of Breath. 09/10/24 Yes Don Causey DO ranolazine ER (RANEXA) 500 mg Extended Release 12 hour tablet Take 1 Tablet (500 mg) by mouth every12 hours. 08/27/24 10/26/24 Yes eZke Medellin MD budesonide 160 mcg-glycopyr 9 mcg-formot 4.8 mcg/actuation HFA inhaler Take 2 Puffs by inhalation 2times daily. 08/26/24 10/25/24 Yes Zeke Medellin MD levalbuterol (XOPENEX) 1.25 mg/3 mL Solution for Nebulization Take 1.25 mg by inhalation every 6 hours as needed for Shortness of Breath or Wheezing. 07/25/24 Yes Provider, Historical insulin lispro (HumaLOG,ADMELOG) 100 unit/mL pen syringe Inject 14 Units by subcutaneous injection 3 times daily with meals. 08/06/24 Yes Kapil Deluna, DO Lantus Solostar U-100 Insulin 100 unit/mL (3 mL) solution for injection Inject 25 Units by subcutaneous injection daily at bedtime. 08/06/24 Yes Kapil eDluna, DO amLODIPine (NORVASC) 2.5 mg tablet Take 2.5 mg by mouth late in the day. 03/30/23 Yes Provider, Historical atorvastatin (LIPITOR) 40 mg tablet Take 40 mg by mouth daily at bedtime. 05/13/23 Yes Provider, Historical nitroglycerin (NITROSTAT) 0.4 mg Tablet, Sublingual Place 0.4 mg under tongue. 05/19/24 Yes Provider, Historical aspirin (CARTER CHEWABLE) 81 mg Tablet, Chewable Take 81 mg by mouth daily. Yes Provider, Historical LORazepam (ATIVAN) 0.5 mg tablet Take 1 Tablet (0.5 mg) by mouth every 8 hours as needed for Anxiety. 04/11/24 Yes Heike Camarillo MD portable oxygen Face to Face completed within 30 days: yes Length of Need: 99 months By: Nasal Cannula Continuously at 3 L/min. 08/27/23 Yes Ryann Burk MD blood sugar diagnostic Strip Use to test blood glucose up to QID PRN symptoms. 12/17/22 Yes Ryann Burk MD Blood-Glucose Meter Kit Use to test blood glucose up to TID PRN symptoms. 12/02/22 Yes Ryann Burk MD predniSONE (DELTASONE) 20 mg tablet 2 tabs po daily for 5 days 10/08/24 10/10/24 Anderson Marie, Lidocaine 4 % Adhesive Patch, Medicated Back pain Patient not taking: Reported on 10/10/2024 10/04/24 Li Box MD sacubitriL-valsartan (ENTRESTO) 24-26 mg Tablet Take 1 Tablet by mouth 2 times daily. 10/03/24 Li Pereyra MD Nebulizer & Compressor For Neb Device every 4 hours as needed for Other (See Comment) (shortness of breath). 09/10/24 Don Causey, triamcinolone acetonide (KENALOG) 0.1 % Ointment Apply to affected area 2 times daily as needed forOther (See Comment) (rash). 08/16/24 Nayely Mena MD oxygen home delivery Home Oxygen Concentrator yes at 3 L/M Rest, 3 L/M Activity, 3 L/M Sleep, Delivery Device: Nasal Cannula Portability: yes, 3 L/M Rest, L/M Activity, May provide device best for patient needs(E system,home fill, conserving device) Length of Need: 99 months 08/06/24 Kapil Deluna, Ventolin HFA 90 mcg/actuation inhaler Take 2 Puffs by inhalation every 6 hours as needed. Provider,Historical isosorbide mononitrate (IMDUR) 30 mg Extended Release 24 hour tablet TAKE 1 TABLET BY MOUTH EVERY DAY 07/05/24 Ashley Virgen, JOANNE potassium CHLORIDE (KLOR-CON) 10 mEq Extended Release tablet Take 1 Tablet by mouth daily. 05/09/24 Provider, Historical tiZANidine (ZANAFLEX) 2 mg Tablet Take 2 mg by mouth every 8 hours as needed. Patient not taking: Reported on 10/10/2024 05/13/23 Provider, Historical OLANZapine (ZyPREXA) 10 mg tablet Take 10 mg by mouth daily at bedtime. 04/12/24 Provider, Historical warfarin (COUMADIN) 10 mg tablet Take 1 Tablet by mouth daily. 03/22/24 Provider, Historical fluorouraciL (EFUDEX) 5 % Cream APPLY TO AFFCETED AREA TWICE A DAY FOR 4 WEEKS Patient not taking: Reported on 10/10/2024 02/01/24 Provider, Historical promethazine-dextromethorphan (PHENERGAN-DM) 6.25-15 mg/5 mL syrup Take 10 mL by mouth every 4 hours as needed for Cough. Patient not taking: Reported on 10/10/2024 12/02/23 Provider, Historical TechLITE Pen Needle 29 gauge x 1/2 Needle USE directed with Josie. 12/29/22 Provider, Historical naloxone (NARCAN) 4 mg/spray [place], Non-Aerosol EMERGENCY USE ONLY: Administer 1 spray (4 mg) in one nostril one time. May repeat in alternating nostrils every 2-3 min until responsive or EMS arrives. 01/06/23 Ryann Burk MD OneTouch Delica Plus Lancet 30 gauge USE TO test fasting blood glucose DAILY 11/04/22 Provider, Historical Lab Results Component Value Date/Time WBC 6.3 10/10/2024 02:10 AM HGB 11.6 (L) 10/10/2024 02:10 AM HGBPOC 10.8 (L) 09/13/2024 08:22 PM HCT 38.4 10/10/2024 02:10 AM HCTPOC 32 (L) 09/13/2024 08:22 PM PLT 156 10/10/2024 02:10 AM MCV 99.5 10/10/2024 02:10 AM Lab Results Component Value Date/Time NA 136 10/10/2024 02:10 AM K 3.8 10/10/2024 02:10 AM CL 102 10/10/2024 02:10 AM CO2 21 (L) 10/10/2024 02:10 AM CA 9.2 10/10/2024 02:10 AM BUN 14 10/10/2024 02:10 AM CREAT 0.47 (L) 10/10/2024 02:10 AM GLUCOSE 291 (H) 10/10/2024 02:10 AM ANIONGAP 13 10/10/2024 02:10 AM BCRATIO SEE NOTE: 07/16/2023 10:52 AM Lab Results Component Value Date/Time TROPONIN 18 06/23/2023 11:20 AM Breath sounds reveal diminished rhonchi . Last chest x-ray reveals Impression: The cardiomediastinal structures are magnified with prominence of pulmonary vasculature suggestive of pulmonary vascular congestion. Improved lung expansion. No pneumothorax or pleural effusion. Latest spirometry reveals: Unable to perform at this time A- to continue home regimen. P- Patient educated on purpose and technique of therapy. Based on above, patient will be placed on Duoneb Q4 PRN and Albuterol MDI Q6 PRN with spacer. Will reassess patient status PRN. Sarita Hale RCP * Gen AI ED Handoff - GENERATIVE AI HANDOFF NOTE - 10/10/2024 1:46 PM CDT SITUATION: Patient ( ) is a 59-year-old female who has been in the ER for 12 hours. She came to the ER due to shortness of breath. The patient's most recent care team on record included: Stella Ramirez. BACKGROUND: This patient has allergies to Ketorolac Tromethamine, Prochlorperazine, Propoxyphene, Tramadol, Codeine, Hydrocodone, Propoxyphene N-acetaminophen. ASSESSMENT: Patient's most recent vitals recorded in flowsheets were as follows: BP: 149/96 T: 98.4 F RR: 22 SPO2: 89% HR: 99 WT: 220.9 LBS BMI: 37.92 Most recent Glucose Value: 349. Completed: 2024-10-10 13:26. Lines most recently placed include: angiocath at 2024-10-10 08:11. Last recorded oxygen source was nasal cannula. The patient, Gianfranco Diaz, has a history of diabetes mellitus, COPD, congestive heart failure, coronary artery disease, and deep vein thrombosis. She presents with shortness of breath and left-sided chest pain radiating to the arm and back. She has bilateral pedal edema and is currently on 4L of oxygen due to mildly labored breathing. The patient has a BMI of 37.9, indicating obesity, and has difficult intravenous access. Her lab results show elevated glucose levels, mild anemia, and elevated troponin levels, suggesting possible cardiac issues. RECOMMENDATION: Continue monitoring for congestive heart failure and manage with medications such as sacubitril-valsartan and furosemide. Ensure diabetes management with insulin lispro and Lantus Solostar. Monitor oxygen levels and provide supplemental oxygen as needed. Consider a cardiology consult for elevated troponin levels and possible cardiac issues. Address COPD symptoms with ipratropium-albuterol nebulization and budesonide inhaler. Evaluate for possible CHF with echocardiogram and manage pedal edema. Ensure dietary restrictions due to diabetes and provide appropriate meals. Monitor blood glucose levels regularly and adjust insulin dosage as needed. Consider a vascular access consult for difficult intravenous access. *This summary was created by neal HOANG. The responses are meant to enhance, not replace normal workflow. Please contact the ED nurse for any additional information.* * Care Plan - Adia Clifford BSW - 10/10/2024 9:36 AM CDT Clinical documentation reviewed. Comprehensive Discharge Planning Risk Assessment was completed. Documentation Related to CDPA score CDPA Documentation Ambulation: assistive equipment Transferring: independent Toileting: independent Bathing: independent Dressing: independent Eating: independent Communication: understands/communicates w/o difficulty Weight-Bearing Status: no weight-bearing restrictions Living Arrangements: Lives with friend/caregiver Total Score of 9 or below does not identify immediate needs for discharge. CDPA Risk Score Total Score: 4 4 Age Criteria that do not apply: Self-reported walking limitation Disability Prior Living Status Please place consult if needs for discharge are identified. Care Management will continue to follow for discharge planning. * ED Bed Hold Comment Note - Ghanshyam Floyd RN - 10/10/2024 3:33 AM CDT Bed: 34 Expected date: 10/10/24 Expected time: 3:24 AM Means of arrival: Comments: Triage documented in this encounter Plan of Treatment Upcoming Encounters Date Type Department Care Team (Late st Contact Info) Description 11/14/2024 3:30 PM CDT Office Visit [facility] [address] [place] [address] Jerson Salas PA [address] [place] [address] 01/12/2025 1:40 PM CDT Office Visit [facility] [address] [facility] [address] [place] [address] KirklandTresa jacobson, [facility] [address] [facility] [address] [place] [id number] Scheduled Orders Name Type Priority Associated Diagnoses Orde r Schedule CBC WITH DIFFERENTIAL Lab Routine Acute on chronic hypoxic respiratory failure (CMS/HCC) Expected: 10/18/2024, Expires: 10/11/2025 COMPREHENSIVE METABOLIC PANEL Lab Routine Acute on chronic hypoxic respiratory failure ([facility]/HCC) Expected: 10/11/2024, Expires: 10/11/2025 documented as of this encounter Goals Goal Patient Goal Type Associated Problems Recent Progress Patient-Stated? Author Heart Failure Goal Care Plan Heart Failure Problem No Latonya Anguiano LPN documented as of this encounter Procedures Procedure Name Priority Date/Time Associated Diagnosis Comments TELEMETRY REPORT 10/12/2024 2:26 AM CDT GI PATHOGEN PCR PANEL Routine 10/11/2024 12:03 PM CDT OCCULT BLOOD GUAIAC DIAGNOSTIC Routine 10/11/2024 12:02 PM CDT POC GLUCOSE Routine 10/11/2024 11:32 AM CDT POC GLUCOSE Routine 10/11/2024 7:23 AM CDT CBC WITH DIFFERENTIAL Routine 10/11/2024 4:38 AM CDT MAGNESIUM LEVEL Routine 10/11/2024 4:38 AM CDT COMPREHENSIVE METABOLIC PANEL Routine 10/11/2024 4:38 AM CDT POC GLUCOSE Routine 10/10/2024 9:15 PM CDT XR ABDOMEN 1 VW Routine 10/10/2024 8:40 PM CDT POC GLUCOSE Routine 10/10/2024 5:13 PM CDT PROTIME-INR Stat 10/10/2024 4:04 PM CDT POC GLUCOSE Stat 10/10/2024 1:18 PM CDT RT ASSESS AND TREAT Stat 10/10/2024 1 2:35 PM CDT TROPONIN 2 HR, 5TH GEN Timed Study 10/10/2024 6:37 AM CDT D-DIMER Stat 10/10/2024 5:07 AM CDT XR CHEST PA OR AP 1 VW Stat 10/10/2024 4:30 AM CDT TROPONIN BASELINE, 5TH GEN Stat 10/10/2024 2:10 AM CDT CBC WITH DIFFERENTIAL Stat 10/10/2024 2:10 AM CDT BRAIN NATRIURETIC PEPTIDE, BNP OR PROBNP Stat 10/10/2024 2:10 AM CDT COMPREHENSIVE METABOLIC PANEL Stat 10/10/2024 2:10 AM CDT EKG 12-LEAD Stat 10/10/2024 12:57 AM CDT documented in this encounter Results * TELEMETRY REPORT (10/12/2024 2:26 AM CDT) us Provider Scanning ECG ORDERABLES Final Result * GI PATHOGEN PCR PANEL (10/11/2024 12:03 PM CDT) GI Pathogen PCR panel NOT DETECTED No nucleic acids detected. 10/11/2024 1:26 PM CDT [facility] Stool STOOL SPECIMEN / Unknown Collection / Unknown 10/11/2024 12:03 PM CDT 10/11/2024 12:05 PM CDT Narrative [facility] - 10/11/2024 1:26 PM CDT The Film Array GI Panel is a multiplexed nucleic acid detection test for 22 targets of bacteria, viruses, and parasites in stool that cause infectious diarrhea. Bacteria: Campylobacter C. difficile Plesiomonas shigelloides Salmonella Vibrio Vibrio cholerae Yersinia enterocolitica Enteroaggregative E. Coli (EAEC) Enteropathogenic E. Coli (EPEC) Enterotoxigenic E. Coli (ETEC) Shiga-like toxin-producing E. Coli (STEC) E. Coli O157 Shigella/Enteroinvasive E. Coli (EIEC) Viruses: Adenovirus F 40/41 Astrovirus Norovirus GI/GII Rotavirus A Sapovirus Parasites: Cryptosporidium Cyclospora cayetanensis Entamoeba histolytica Giardia duodenalis Kapil Deluna DO MICROBIOLOGY - GENERAL ORDERABLES Final Result Performing Organization Address [facility] Co de Phone Number [facility] CLIA # [id number] [address] [place] [phone] * OCCULT BLOOD GUAIAC DIAGNOSTIC (10/11/2024 12:02 PM CDT) OCCULT BLOOD, STOOL Negative Negative 10/11/2024 12:11 PM CDT [facility] Stool STOOL SPECIMEN / Unknown Collection / Unknown 10/11/2024 12:02 PM CDT 10/11/2024 12:03 PM CDT Kapil Deluna DO BODY FLUIDS AND STOOLS Final Result [facility] CLIA # [id number] [address] [id number] * (ABNORMAL) POC GLUCOSE (10/11/2024 11:32 AM CDT) GLUCOSE POC 137(H) 74 - 99 mg/dL 10/11/2024 11:32 AM CDT [facility] SPECIMEN SOURCE, GLUCOSE POC Capillary 10/11/2024 11:32 AM CDT [facility] Blood, whole 10/11/2024 11:3 2 AM CDT 10/11/2024 11:53 AM CDT Jasper Fairchild MD POINT OF CARE TESTING Fin al Result Performing Organization Address [facility] de Phone Number [facility] CLIA # [id number] [address] [address] [place], [place] [id number] * (ABNORMAL) POC GLUCOSE (10/11/2024 7:23 AM CDT) Pathologist [facility] GLUCOSE POC 297(H) 74 - 99 mg/dL 10/11/2024 7:23 AM CDT [facility] SPECIMEN SOURCE, GLUCOSE POC Capillary 10/11/2024 7:23 AM CDT [facility] Blood, whole 10/11/2024 7:23 AM CDT 10/11/2024 7:36 AM CDT Jasper Fairchild MD POINT OF CARE TESTING Fin al Result Performing Organization Address [facility] Co de Phone Number [facility] CLIA # [id number] [address] [address] * (ABNORMAL) COMPREHENSIVE METABOLIC PANEL (10/11/2024 4:38 AM CDT) Pathologist [facility] SODIUM 139 136 - 145 mmol/L 10/11/2024 5:27 AM CDT [facility] POTASSIUM 3.5 3.5 - 5.1 mmol/L 10/11/2024 5:27 AM CDT [facility] CHLORIDE 102 98 - 107 mmol/L 10/11/2024 5:27 AM CDT [facility] CO2 22 22 - 29 mmol/L 10/11/2024 5:27 AM CDT [facility] CALCIUM 9.2 8.6 - 10.0 mg/dL 10/11/2024 5:27 AM [facility] BUN 21(H) 6 - 20 mg/dL 10/11/2024 5:27 AM [facility] CREATININE 0.56 0.51 - 0.95 mg/dL 10/11/2024 5:27 AM [facility] GLUCOSE 263(H) 74 - 99 mg/dL 10/11/2024 5:27 AM [facility] TOTAL PROTEIN 6.4 6.4 - 8.3 g/dL 10/11/2024 5:27 AM [facility] ALBUMIN 3.4(L) 3.5 - 5.2 g/dL 10/11/2024 5:27 AM [facility] BILIRUBIN TOTAL 0.2 0.0 - 1.0 mg/dL 10/11/2024 5:27 AM [facility] ALKALINE PHOSPHATASE 105(H) 35 - 104 U/L 10/11/2024 5:27 AM [facility] AST 13 10 - 35 U/L 10/11/2024 5:27 AM [facility] ALT 23 <=35 U/L 10/11/2024 5:27 AM [facility] GFR >60 >=60 mL/min/1.7 3 sq meter 10/11/2024 5:27 AM [facility] Comment:eGFR calculated with 2020 CKD-EPI equation. Vegetarian diet, extremely high or low muscle mass, and may affect results. Cystatin C with Glomerular Filtration Rate is a suitable alternative for these patients. ANION GAP 15 9 - 20 mmol/L 10/11/2024 5:27 AM [facility] Blood Venipuncture / Unknown 10/11/2024 4:38 AM CDT 10/11/2024 4:52 AM CDT us Kapil Deluna DO CHEMISTRY ORDERABLES Fi nal Result [facility] CLIA # [id number] [address] [address] [place] [address] * (ABNORMAL) CBC WITH DIFFERENTIAL (10/11/2024 4:38 AM CDT) [facility] WBC 8.4 4.8 - 10.8 K/uL 10/11/2024 4:59 AM CDT [facility] NRBCS 1(H) <1 % 10/11/2024 4:59 AM CDT [facility] RBC 3.99(L) 4.20 - 5.40 M/uL 10/11/2024 4:59 AM CDT [facility] HEMOGLOBIN 12.0 12.0 - 16.0 g/dL 10/11/2024 4:59 AM CDT [facility] HEMATOCRIT 39.1 36.0 - 46.0 % 10/11/2024 4:59 AM CDT [facility] MCV 98.0 84.0 - 103.0 fL 10/11/2024 4:59 AM CDT [facility] MCH 30.1 27.0 - 34.0 pg 10/11/2024 4:59 AM CDT [facility] MCHC 30.7 30.0 - 35.0 g/dL 10/11/2024 4:59 AM CDT [facility] PLATELETS 158 140 - 440 K/uL 10/11/2024 4:59 AM CDT [facility] MPV 11.8 8.9 - 12.8 fL 10/11/2024 4:59 AM CDT [facility] RDW 18.6(H) 11.0 - 14.5 % 10/11/2024 4:59 AM CDT [facility] RDW-STDEV 66.0(H) 37.0 - 54.0 fL 10/11/2024 4:59 AM CDT [facility] NEUTROPHILS 58 42 - 75 % 10/11/2024 4:59 AM CDT [facility] LYMPHOCYTES 24 24 - 44 % 10/11/2024 4:59 AM CDT [facility] MONOCYTES 15(H) 2 - 10 % 10/11/2024 4:59 AM CDT [facility] EOSINOPHILS 2 0 - 7 % 10/11/2024 4:59 AM CDT [facility] BASOPHILS 0 0 - 1 % 10/11/2024 4:59 AM CDT [facility] IMMATURE GRANULOCYTES 1 0 - 2 % 10/11/2024 4:59 AM CDT [facility] NEUTROPHIL ABSOLUTE 4.82 2.00 - 8.00 K/uL 10/11/2024 4:59 AM CDT [facility] LYMPHOCYTE ABSOLUTE 2.02 1.20 - 4.00 K/uL 10/11/2024 4:59 AM CDT [facility] MONOCYTE ABSOLUTE 1.28(H) 0.10 - 0.60 K/uL 10/11/2024 4:59 AM CDT [facility] EOSINOPHIL ABSOLUTE 0.15 0.00 - 0.70 K/uL 10/11/2024 4:59 AM CDT [facility] BASOPHILS ABSOLUTE 0.02 0.00 - 0.20 K/uL 10/11/2024 4:59 AM CDT [facility] IMMATURE GRANULOCYTES ABSOLUTE 0.08 0.00 - 0.10 K/uL 10/11/2024 4:59 AM CDT [facility] SMEAR REVIEWED: NA - Not Applicable 10/11/2024 4:59 AM CDT [facility] Blood Venipuncture / Unknown 10/11/2024 4:38 AM CDT 10/11/2024 4:52 AM CDT us Kapil Deluna DO HEMATOLOGY ORDERABLES F inal Result [facility] CLIA # [id number] [address] [address] [place] [address] * MAGNESIUM LEVEL (10/11/2024 4:38 AM CDT) Pathologist [facility] MAGNESIUM 1.9 1.6 - 2.6 mg/dL 10/11/2024 5:27 AM CDT [facility] Blood Venipuncture / Unknown 10/11/2024 4:38 AM CDT 10/11/2024 4:52 AM CDT Kapil Deluna DO CHEMISTRY ORDERABLES Fi nal Result Performing Organization Address [facility] Co de Phone Number [facility] CLIA # [id number] [address] [address] [place] [address] * (ABNORMAL) POC GLUCOSE (10/10/2024 9:15 PM CDT) [facility] GLUCOSE POC 389(H) 74 - 99 mg/dL 10/10/2024 9:15 PM CDT [facility] SPECIMEN SOURCE, GLUCOSE POC Capillary 10/10/2024 9:15 PM CDT [facility] Blood, whole 10/10/2024 9:15 PM CDT 10/11/2024 6:00 AM CDT Kapil Deluna DO POINT OF CARE TESTING F inal Result Performing Organization Address [facility] de Phone Number [facility] CLIA # [id number] [address] [address] * XR ABDOMEN 1 VW (10/10/2024 8:40 PM CDT) Anatomical Region Laterality Modality Abdomen Computed Radiogr aphy 10/10/2024 8:40 PM CDT Impressions 10/10/2024 8:45 PM CDT IMPRESSION: Bowel gas pattern appears nonobstructive. Stool burden greater than average. Narrative 10/10/2024 8:45 PM CDT Exam: XR ABDOMEN 1 VW Date/Time of Exam: 10/10/2024 8:40 PM Reason For Exam: Abdomen Distension. Diagnosis: Acute congestive heart failure, unspecified heart failure type (CMS/HCC). Comparison: June 02, 2023. Procedure Note Guilherme Rubin MD - 10/10/2024 Exam: XR ABDOMEN 1 VW Date/Time of Exam: 10/10/2024 8:40 PM Reason For Exam: Abdomen Distension. Diagnosis: Acute congestive heart failure, unspecified heart failure type (CMS/HCC). Comparison: June 02, 2023. IMPRESSION: Bowel gas pattern appears nonobstructive. Stool burden greater than average. Kapil Deluan DO DIAGNOSTIC IMAGING ORDE RABLES Final Result * (ABNORMAL) POC GLUCOSE (10/10/2024 5:13 PM CDT) [facility] GLUCOSE POC 422(HH) 74 - 99 mg/dL 10/10/2024 5:13 PM CDT [facility] SPECIMEN SOURCE, GLUCOSE POC Capillary 10/10/2024 5:13 PM CDT [facility] COMMENT, GLU POC Alerted Nurse/MARIELLA/DR 10/10/2024 5:13 PM CDT [facility] Blood, whole 10/10/2024 5:13 PM CDT 10/10/2024 5:26 PM CDT Kapil Deluna DO POINT OF CARE TESTING F inal Result [facility] CLIA # [id number] [facility] [address] [place] [address] * (ABNORMAL) PROTIME-INR (10/10/2024 4:04 PM CDT) [facility] PROTIME 15.0(H) 12.7 - 14.9 Seconds 10/10/2024 4:54 PM CDT [facility] INR 1.1 0.8 - 1.2 10/10/2024 4:54 PM CDT [facility] Blood Venipuncture / Unknown 10/10/2024 4:04 PM CDT 10/10/2024 4:35 PM CDT Narrative [facility] - 10/10/2024 4:54 PM CDT Expected Values for INR: DVT/PE Goal INR 2.5; range 2.0 - 3.0 Valve Replacement Tissue Goal INR 2.5; range 2.0 - 3.0 Valve Replacement Mechanical Goal INR 3.0; range 2.5 - 3.5 POST-MD Goal INR 2.5; range 2.0 - 3.0 or Goal INR 3.0; range 2.5 - 3.5 Atrial Fibrillation Goal INR 2.5; range 2.0 - 3.0 Ischemic Stroke Goal INR 2.5; range 2.0 - 3.0 us Kapil Deluna DO HEMATOLOGY ORDERABLES F inal Result Performing Organization Address [facility]/ZIP Co de Phone Number [facility] CLIA # [id number] [address] [facility], [facility] [place], [place] [id number] * (ABNORMAL) POC GLUCOSE (10/10/2024 1:18 PM CDT) [facility] GLUCOSE POC 349(H) 74 - 99 mg/dL 10/10/2024 1:18 PM CDT [facility] SPECIMEN SOURCE, GLUCOSE POC Capillary 10/10/2024 1:18 PM CDT [facility] Blood, whole 10/10/2024 1:18 PM CDT 10/10/2024 1:26 PM CDT us Anita López MD POINT OF CARE TESTING Final Re sult Performing Organization Address [facility]/ZIP Co de Phone Number [facility] CLIA # [id number] [address] [place], [place] [id number] * (ABNORMAL) TROPONIN 2 HR, 5TH GEN (10/10/2024 6:37 AM CDT) TROPONIN T, 2 HR 5TH GEN 17(H) <=10 ng/L 10/10/2024 7:12 AM CDT [facility] DELTA 2HR TROPONIN T -7 See Interp. 10/10/2024 7:12 AM CDT [facility] Blood Venipuncture / Unknown 10/10/2024 6:37 AM CDT 10/10/2024 6:[address] [facility] - 10/10/2024 7:12 AM CDT Troponin elevated. Delta indeterminate. us Anita López MD CHEMISTRY ORDERABLES Final Res ult [facility] CLIA # [id number] [address] [place] [address] * D-DIMER (10/10/2024 5:07 AM CDT) Pathologist [facility] [place] D-DIMER QUANT 0.34 0.00 - 0.50 ug/mL FEU 10/10/2024 5:26 AM CDT [facility] Blood Venipuncture / Unknown 10/10/2024 5:07 AM CDT 10/10/2024 5:[address] [facility] - 10/10/2024 5:26 AM CDT D-Dimer assay cutoff value for exclusion [...] ug/mL FEU 71-80 years: 0.71-0.80 ug/mL FEU Anita López MD HEMATOLOGY ORDERABLES Final Re sult [facility] [employer] [facility] CLIA # [id number] [address] [place] [address] * XR CHEST PA OR AP 1 VW (10/10/2024 4:30 AM CDT) Anatomical Region Laterality Modality Chest Computed Radiogr aphy 10/10/2024 4:30 AM CDT Impressions 10/10/2024 7:01 AM CDT Impression: The cardiomediastinal structures are magnified with prominence of pulmonary vasculature suggestive of pulmonary vascular congestion. Improved lung expansion. No pneumothorax or pleural effusion. Narrative 10/10/2024 7:01 AM CDT Exam: XR CHEST PA OR AP 1 VW Date/Time of Exam: 10/10/2024 4:30 AM Reason For Exam: Shortness of Breath SOB. Diagnosis: See Reason for Exam. Comparison: October 08, 2024. Procedure Note Guilherme Rubin MD - 10/10/2024 Exam: XR CHEST PA OR AP 1 VW Date/Time of Exam: 10/10/2024 4:30 AM Reason For Exam: Shortness of Breath SOB. Diagnosis: See Reason for Exam. Comparison: October 08, 2024. Impression: The cardiomediastinal structures are magnified with prominence of pulmonary vasculature suggestive of pulmonary vascular congestion. Improved lung expansion. No pneumothorax or pleural effusion. Anita López MD DIAGNOSTIC IMAGING ORDERABLES Final Result * (ABNORMAL) TROPONIN BASELINE, 5TH GEN (10/10/2024 2:10 AM CDT) TROPONIN T, BASELINE 5TH GEN 24(H) <=10 ng/L 10/10/2024 5:03 AM CDT [facility] [employer] [facility] Blood Venipuncture / Unknown 10/10/2024 2:10 AM CDT 10/10/2024 2:21 AM CDT Narrative [facility] - 10/10/2024 5:03 AM CDT Troponin elevated. Anita López MD CHEMISTRY ORDERABLES Final Res ult Performing Organization Address [facility] Co de Phone Number [facility] CLIA # [id number] [address] [place], [place] [address] * (ABNORMAL) BRAIN NATRIURETIC PEPTIDE, BNP OR PROBNP (10/10/2024 2:10 AM CDT) PROBNP, N TERMINAL 349(H) 0 - 125 pg/mL 10/10/2024 5:03 AM CDT [facility] Comment: INTERPRETIVE COMMENT based on [...] years: >1800 pg/mL Blood Venipuncture / Unknown 10/10/2024 2:10 AM CDT 10/10/2024 2:21 AM CDT Anita López MD CHEMISTRY ORDERABLES Final Res ult Performing Organization Address [facility]/ZIP Co de Phone Number [facility] CLIA # [id number] [address] [place], [place] [address] * (ABNORMAL) COMPREHENSIVE METABOLIC PANEL (10/10/2024 2:10 AM CDT) SODIUM 136 136 - 145 mmol/L 10/10/2024 2:55 AM [facility] POTASSIUM 3.8 3.5 - 5.1 mmol/L 10/10/2024 2:55 AM [facility] CHLORIDE 102 98 - 107 mmol/L 10/10/2024 2:55 AM [facility] CO2 21(L) 22 - 29 mmol/L 10/10/2024 2:55 AM [facility] CALCIUM 9.2 8.6 - 10.0 mg/dL 10/10/2024 2:55 AM [facility] BUN 14 6 - 20 mg/dL 10/10/2024 2:55 AM [facility] CREATININE 0.47(L) 0.51 - 0.95 mg/dL 10/10/2024 2:55 AM [facility] GLUCOSE 291(H) 74 - 99 mg/dL 10/10/2024 2:55 AM [facility] TOTAL PROTEIN 7.0 6.4 - 8.3 g/dL 10/10/2024 2:55 AM [facility] ALBUMIN 3.7 3.5 - 5.2 g/dL 10/10/2024 2:55 AM [facility] BILIRUBIN TOTAL 0.2 0.0 - 1.0 mg/dL 10/10/2024 2:55 AM [facility] ALKALINE PHOSPHATASE 112(H) 35 - 104 U/L 10/10/2024 2:55 AM [facility] AST 21 10 - 35 U/L 10/10/2024 2:55 AM [facility] Comment:Hemolysis present. R esult may be falsely elevated. ALT 35 <=35 U/L 10/10/2024 2:55 AM [facility] GFR >60 >=60 mL/min/1. 73 sq meter 10/10/2024 2:55 AM [facility] Comment:eGFR calculated with 2020 CKD-EPI equation. Vegetarian diet, extremely high or low muscle mass, and may affect results. Cystatin C with Glomerular Filtration Rate is a suitable alternative for these patients. ANION GAP 13 9 - 20 mmol/L 10/10/2024 2:55 AM CDT [facility] Blood Venipuncture / Unknown 10/10/2024 2:10 AM CDT 10/10/2024 2:21 AM CDT us Anita López MD CHEMISTRY ORDERABLES Final Res ult [facility] CLIA # [id number] [address] [address] [place] [address] * (ABNORMAL) CBC WITH DIFFERENTIAL (10/10/2024 2:10 AM CDT) Pathologist [facility] WBC 6.3 4.8 - 10.8 K/uL 10/10/2024 2:34 AM CDT [facility] NRBCS 3(H) <1 % 10/10/2024 2:34 AM CDT [facility] RBC 3.86(L) 4.20 - 5.40 M/uL 10/10/2024 2:34 AM CDT [facility] HEMOGLOBIN 11.6(L) 12.0 - 16.0 g/dL 10/10/2024 2:34 AM T [facility] HEMATOCRIT 38.4 36.0 - 46.0 % 10/10/2024 2:34 AM CDT [facility] MCV 99.5 84.0 - 103.0 fL 10/10/2024 2:34 AM CDT [facility] MCH 30.1 27.0 - 34.0 pg 10/10/2024 2:34 AM CDT [facility] MCHC 30.2 30.0 - 35.0 g/dL 10/10/2024 2:34 AM CDT [facility] PLATELETS 156 140 - 440 K/uL 10/10/2024 2:34 AM CDT [facility] MPV 10.5 8.9 - 12.8 fL 10/10/2024 2:34 AM [facility] RDW 18.6(H) 11.0 - 14.5 % 10/10/2024 2:34 AM [facility] RDW-STDEV 67.7(H) 37.0 - 54.0 fL 10/10/2024 2:34 AM [facility] NEUTROPHILS 70 42 - 75 % 10/10/2024 2:34 AM [facility] LYMPHOCYTES 23(L) 24 - 44 % 10/10/2024 2:34 AM [facility] MONOCYTES 6 2 - 10 % 10/10/2024 2:34 AM [facility] EOSINOPHILS 0 0 - 7 % 10/10/2024 2:34 AM [facility] BASOPHILS 1 0 - 1 % 10/10/2024 2:34 AM [facility] IMMATURE GRANULOCYTES 1 0 - 2 % 10/10/2024 2:34 AM [facility] NEUTROPHIL ABSOLUTE 4.40 2.00 - 8.00 K/uL 10/10/2024 2:34 AM [facility] LYMPHOCYTE ABSOLUTE 1.44 1.20 - 4.00 K/uL 10/10/2024 2:34 AM [facility] MONOCYTE ABSOLUTE 0.35 0.10 - 0.60 K/uL 10/10/2024 2:34 AM [facility] EOSINOPHIL ABSOLUTE 0.02 0.00 - 0.70 K/uL 10/10/2024 2:34 AM [facility] BASOPHILS ABSOLUTE 0.03 0.00 - 0.20 K/uL 10/10/2024 2:34 AM [facility] IMMATURE GRANULOCYTES ABSOLUTE 0.05 0.00 - 0.10 K/uL 10/10/2024 2:34 AM [facility] SMEAR REVIEWED: NN - No Action Needed 10/10/2024 2:34 AM [facility] Blood Venipuncture / Unknown 10/10/2024 2:10 AM CDT 10/10/2024 2:15 AM CDT us Anita López MD HEMATOLOGY ORDERABLES Final Re sult [facility] CLIA # [id number] [id number] [place] [address] * EKG 12-LEAD (10/10/2024 12:57 AM CDT) 10/10/2024 12:5 7 AM CDT Narrative INTERFACE SYSTEM - 10/10/2024 6:48 AM CDT [address] [address] Test Date: 2024-10-10 Pat Name: GIANFRANCO DIAZ Department: 11 Room: 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 : 1965 Requested By: Order Number: [id number] Reading : Echo Tapia Measurements Intervals [place] Rate: 83 P: -8 [place]: 144 QRS: 69 QRSD: 82 T: 45 QT: 364 QTc: 427 Interpretive Statements Sinus rhythm with occasional premature ventricular complexes and premature atrial complexes Nonspecific T wave abnormality Abnormal ECG Electronically Signed On 10-10-2024 6:48:22 CDT by Echo Tapia Procedure Note Provider, Historical - 10/10/[address] [place] [address] Test Date: 2024-10-10 Pat Name: GIANFRANCO DIAZ Department: 11 Room: 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: [email or web address] : 1965 Requested By: Order Number: [id number] Reading VALENTE Tapia Measurements Intervals [place] Rate: 83 P: -8 [place]: 144 QRS: 69 QRSD: 82 T: 45 QT: 364 QTc: 427 Interpretive Statements Sinus rhythm with occasional premature ventricular complexes and premature atrial complexes Nonspecific T wave abnormality Abnormal ECG Electronically Signed On 10-10-2024 6:48:22 CDT by Echo Tapia us Anita López MD ECG ORDERABLES Final Result INTERFACE SYSTEM Refer to clinic/hospital department documented in this encounter Visit Diagnoses Diagnosis Acute respiratory distress- Primary Other pulmonary insufficiency, not elsewhere classified Acute congestive heart failure, unspecified heart failure type (CMS/HCC) Acute on chronic hypoxic respiratory failure (CMS/HCC) Benign hypertension Essential hypertension, benign GERD (gastroesophageal reflux disease) Esophageal reflux HEENA (generalized anxiety disorder) Generalized anxiety disorder History of pulmonary embolism Personal history of pulmonary embolism Chronic anticoagulation Encounter for long-term (current) use of anticoagulants Chronic hypoxic respiratory failure (CMS/HCC) Atherosclerosis of [place] coronary artery of [place] heart without angina pectoris 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 Dark stools Nonspecific abnormal finding in stool contents documented in this encounter Administered Medications Inactive Administered Medications - up to 3 most recent administrations Medication Order MAR Action Action Date Dose Rate Site acetaminophen (TYLENOL) tablet 650 mg 650 mg, Oral, EVERY 6 HOURS PRN, Starting on Thu10/10/24 at 1232, Until Thu10/11/24 at 1734, Other (See Comment), See admin instructions, Routine albuterol sulfate 90 mcg/Actuation inhaler 2 Puff 2 Puff, Inhalation, EVERY 4 HOURS PRN RESPIRATORY, Starting on Thu10/10/24 at 1747, Until Thu10/11/24 at 1734, Shortness of Breath, Routine aspirin (CARTER CHEWABLE) chewable tablet 81 mg 81 mg, Oral, DAILY, First dose on Thu10/10/24 at 1500, Until Discontinued, Routine, Previous Med: aspirin (CARTER CHEWABLE) 81 mg Tablet, Chewable - Orig Sig - Take 81 mg by mouth daily. Given 10/11/2024 10:02 AM CDT 81 mg Given 10/10/2024 3:32 PM CDT 81 mg atorvastatin (LIPITOR) tablet 40 mg 40 mg, Oral, DAILY AT BEDTIME, First dose on Thu10/10/24 at 2100, Until Discontinued, Routine, Previous Med: atorvastatin (LIPITOR) 40 mg tablet - Orig Sig - Take 40 mg by mouth daily at bedtime. Given 10/10/2024 9:18 PM CDT 40 mg dextrose 5 % - sodium chloride 0.9 % infusion IV, at 40 mL/hr, SEE ADMIN INSTRUCTIONS, Starting on Thu10/10/24 at 1323, Until Thu10/11/24 at 1734, Routine dextrose 5 % in water 250 mL flush bag 25 mL 25 mL, IV, SEE ADMIN INSTRUCTIONS, Starting on Thu10/10/24 at 0058, Until Thu10/11/24 at 1734, Routine dextrose 5 % in water 250 mL flush bag 25 mL 25 mL, IV, SEE ADMIN INSTRUCTIONS, Starting on Thu10/10/24 at 1232, Until Thu10/11/24 at 1734, Routine dextrose 50% (D50) syringe 12.5 Gram 12.5 Gram, IV, SEE ADMIN INSTRUCTIONS, Starting on Thu10/10/24 at 1323, Until Thu10/11/24 at 1734, Routine dextrose 50% (D50) syringe 25 Gram 25 Gram, IV, SEE ADMIN INSTRUCTIONS, Starting on Thu10/10/24 at 1323, Until Thu10/11/24 at 1734, Routine empagliflozin (JARDIANCE) tablet 10 mg 10 mg, Oral, DAILY EARLY, First dose on Thu10/11/24 at 0600, Until Discontinued, Routine, Previous Med: empagliflozin (JARDIANCE) 10 mg tablet - Orig Sig - Take 1 Tablet (10 mg) by mouth daily in the morning. , Indication: Heart Failure Given 10/11/2024 5:21 AM CDT 10 mg enoxaparin (LOVENOX) injection 100 mg 100 mg, subCUT, EVERY 12 HOURS, First dose on Thu10/10/24 at 1800, Until Discontinued, Routine, Previous Med: enoxaparin (LOVENOX) 100 mg/mL injection - Orig Sig - Inject 100 mg by subcutaneous injection every 12 hours. , Indication: TREATMENT of acute VTE/DVT/PE Given 10/11/2024 5:20 AM CDT 100 mg Abdomen, Left Lower Quadrant Given 10/10/2024 5:16 PM CDT 100 mg Ab domen, Right Lower Quadrant fluticasone furoate-vilanteroL (BREO ELLIPTA) 100-25 mcg/dose inhaler 1 Puff 1 Puff, Inhalation, DAILY RESPIRATORY, First dose on Thu10/10/24 at 1600, Until Discontinued, Routine Given 10/11/2024 10:02 AM CDT 1 Puff Given 10/10/2024 4:31 PM CDT 1 Puff furosemide (LASIX) injection 40 mg 40 mg, IV, ONE TIME ONLY, 1 dose, On Thu10/10/24 at 0730, Stat Given 10/10/2024 8:10 AM CDT 40 mg furosemide (LASIX) injection 40 mg 40 mg, IV, TWO TIMES DAILY, 7 HOURS APART, First dose on Thu10/10/24 at 1500, Until Discontinued, Routine Given 10/11/2024 10:50 AM CDT 40 mg Given 10/10/2024 3:32 PM CDT 40 mg glucagon HCL 1 mg/mL injection 1 mg 1 mg, IM, SEE ADMIN INSTRUCTIONS, Starting on Thu10/10/24 at 1323, Until Thu10/11/24 at 1734, Routine HYDROcodone-acetaminophen (NORCO) 7.5-325 mg per tablet 1 Tablet 1 Tablet, Oral, EVERY 6 HOURS PRN, Starting on Thu10/10/24 at 1444, Until Thu10/11/24 at 1734, Pain, Moderate, Pain, Severe, Routine, Previous Med: HYDROcodone-acetaminophen (NORCO) 7.5-325 mg Tablet - Orig Sig - Take 1 Tablet by mouth every 8 hours as needed for Pain, Moderate or Pain, Severe. Given 10/11/2024 3:11 PM CDT 1 Tablet Given 10/11/2024 4:24 AM CDT 1 Tablet Given 10/10/2024 9:15 PM CDT 1 Tablet ibuprofen (MOTRIN) tablet 600 mg 600 mg, Oral, ONE TIME ONLY, 1 dose, On Thu10/10/24 at 0630, Routine Given 10/10/2024 6:25 AM CDT 600 mg insulin glargine (LANTUS) injection 25 Units 25 Units, subCUT, DAILY AT BEDTIME, First dose on Thu10/10/24 at 2100, Until Discontinued, Routine, Previous Med: Lantus Solostar U-100 Insulin 100 unit/mL (3 mL) solution for injection - Orig Sig - Inject 25 Units by subcutaneous injection daily at bedtime. Given 10/10/2024 9:47 PM CDT 25 Units Arm, Left insulin lispro (HumaLOG,ADMELOG) injection 0-18 Units 0-18 Units, subCUT, THREE TIMES DAILY WITH MEALS, First dose on Thu10/10/24 at 1330, Until Discontinued, Routine Given 10/11/2024 7:25 AM CDT 9 Units Abdomen, Left Lower Quadrant Given 10/10/2024 5:15 PM CDT 18 Units Ar m, Left Upper insulin lispro (HumaLOG,ADMELOG) injection 10 Units 10 Units, subCUT, ONE TIME ONLY, 1 dose, On Thu10/10/24 at 2130, Routine Given 10/10/2024 9:47 PM CDT 10 Units Arm, Left insulin lispro (HumaLOG,ADMELOG) injection 14 Units 14 Units, subCUT, THREE TIMES DAILY WITH MEALS, First dose on Thu10/10/24 at 1330, Until Discontinued, Routine Given 10/11/2024 11:34 AM CDT 14 Units Abdomen, Left Lower Quadrant Given 10/11/2024 7:24 AM CDT 14 Units Ab domen, Left Lower Quadrant Given 10/10/2024 5:14 PM CDT 14 Units Ar m, Left Upper ipratropium-albuteroL (DUONEB) 0.5 mg-3 mg(2.5 mg base)/3 mL inhalation solution 3 mL 3 mL, Inhalation, ONE TIME ONLY RESPIRATORY, 1 dose, On Thu10/10/24 at 0430, Routine Given 10/10/2024 4:29 AM CDT 3 mL melatonin tablet 3 mg 3 mg, Oral, NIGHTLY PRN, Starting on Thu10/10/24 at 1234, Until Thu10/11/24 at 1734, Insomnia, Routine methylPREDNISolone sodium succinate (SOLU-Medrol) 125 mg in sterile water 2 mL injection 125 mg, IV, ONE TIME ONLY, 1 dose, On Thu10/10/24 at 0430, Routine Given 10/10/2024 4:52 AM CDT 125 mg metoprolol succinate (TOPROL XL) SR 24 hour tablet 25 mg 25 mg, Oral, DAILY, First dose on Thu10/10/24 at 1500, Until Discontinued, Routine, Previous Med: metoprolol succinate (TOPROL XL) 25 mg Extended Release 24 hour tablet - Orig Sig - Take 1 Tablet (25 mg) by mouth daily. Given 10/11/2024 10:02 AM CDT 25 mg Given 10/10/2024 3:32 PM CDT 25 mg morphine 4 mg/mL injection 2 mg 2 mg, IV, ONE TIME ONLY, 1 dose, On Thu10/10/24 at 0845, Routine Given 10/10/2024 9:07 AM CDT 2 mg morphine 4 mg/mL injection 2 mg 2 mg, IV, EVERY 4 HOURS PRN, Starting on Thu10/10/24 at 1602, Until Thu10/11/24 at 1734, Pain (See admin instructions), Routine Given 10/11/2024 5:21 AM CDT 2 mg Given 10/10/2024 10:21 PM CDT 2 mg Given 10/10/2024 4:30 PM CDT 2 mg naloxone (NARCAN) 0.4 mg/mL injection 0.1 mg 0.1 mg, IV, SEE ADMIN INSTRUCTIONS, Starting on Thu10/10/24 at 1232, Until Thu10/11/24 at 1734, Routine OLANZapine (ZyPREXA) tablet 10 mg 10 mg, Oral, DAILY AT BEDTIME, First dose on Thu10/10/24 at 2100, Until Discontinued, Routine, Previous Med: OLANZapine (ZyPREXA) 10 mg tablet - Orig Sig - Take 10 mg by mouth daily at bedtime. Given 10/10/2024 9:16 PM CDT 10 mg ondansetron (ZOFRAN) 4 mg/2 mL injection 4 mg 4 mg, IV, EVERY 6 HOURS PRN, Starting on Thu10/10/24 at 1232, Until Thu10/11/24 at 1734, Nausea/Emesis, Routine oxyCODONE-acetaminophen (PERCOCET) 5-325 mg per tablet 1 Tablet 1 Tablet, Oral, ONE TIME ONLY, 1 dose, On Thu10/10/24 at 0630, Stat Given 10/10/2024 6:25 AM CDT 1 Tablet ranolazine ER (RANEXA) SR 12 hour tablet 500 mg 500 mg, Oral, EVERY 12 HOURS, First dose on Thu10/10/24 at 2100, Until Discontinued, Routine, Previous Med: ranolazine ER (RANEXA) 500 mg Extended Release 12 hour tablet - Orig Sig - Take 1 Tablet (500 mg) by mouth every 12 hours. Given 10/11/2024 10:02 AM CDT 50 0 mg Given 10/10/2024 9:16 PM CDT 500 mg sacubitriL-valsartan (ENTRESTO) 24-26 mg tablet 1 Tablet 1 Tablet, Oral, TWO TIMES DAILY, First dose on Thu10/10/24 at 2100, Until Discontinued, Routine, Previous Med: sacubitriL-valsartan (ENTRESTO) 24-26 mg Tablet - Orig Sig - Take 1 Tablet by mouth 2 times daily. Given 10/11/2024 10:02 AM CDT 1 Tablet Given 10/10/2024 9:16 PM CDT 1 Tablet sodium chloride 0.9 % flush bag 25 mL 25 mL, IV, SEE ADMIN INSTRUCTIONS, Starting on Thu10/10/24 at 0058, Until Thu10/11/24 at 1734, Routine sodium chloride 0.9 % flush bag 25 mL 25 mL, IV, SEE ADMIN INSTRUCTIONS, Starting on Thu10/10/24 at 1232, Until Thu10/11/24 at 1734, Routine sodium chloride flush injection 10 mL 10 mL, IV, EVERY 12 HOURS (BlD), First dose on Thu10/10/24 at 0100, Until Discontinued, Routine Given 10/11/2024 10:53 AM CDT 10 mL Admin by Another Clinician (Comment) 10/10/2024 9:00 AM CD T 10 mL Admin by Another Clinician (Comment) 10/10/2024 1:00 AM CD T 10 mL sodium chloride flush injection 10 mL 10 mL, IV, SEE ADMIN INSTRUCTIONS, Starting on Thu10/10/24 at 0058, Until Thu10/11/24 at 1734, Routine sodium chloride flush injection 10 mL 10 mL, IV, EVERY 12 HOURS (BlD), First dose on Thu10/10/24 at 1245, Until Discontinued, Routine Given 10/11/2024 10:03 AM CDT 10 mL Given 10/10/2024 9:17 PM CDT 10 mL sodium chloride flush injection 10 mL 10 mL, IV, SEE ADMIN INSTRUCTIONS, Starting on Thu10/10/24 at 1232, Until Thu10/11/24 at 1734, Routine umeclidinium (INCRUSE ELLIPTA) 62.5 mcg/actuation inhaler 1 Puff 1 Puff, Inhalation, DAILY RESPIRATORY, First dose on Thu10/10/24 at 1600, Until Discontinued, Routine Given 10/11/2024 10:02 AM CDT 1 Puff Given 10/10/2024 4:31 PM CDT 1 Puff documented in this encounter Active and Recently Administered Medications Times are shown in CDT. Scheduled Medication Order 10/09/2024 10/10/2024 10/11/2024 aspirin (CARTER CHEWABLE) chewable tablet 81 mg 81 mg, Oral, DAILY, First dose on Thu10/10/24 at 1500, Until Discontinued, Routine, Previous Med: aspirin (CARTER CHEWABLE) 81 mg Tablet, Chewable - Orig Sig - Take 81 mg by mouth daily. 153 (Given - Provider: Savannah Murillo, MARICARMEN) 1002 (Given - Provider: SYLVIA Laird) atorvastatin (LIPITOR) tablet 40 mg 40 mg, Oral, DAILY AT BEDTIME, First dose on Thu10/10/24 at 2100, Until Discontinued, Routine, Previous Med: atorvastatin (LIPITOR) 40 mg tablet - Orig Sig - Take 40 mg by mouth daily at bedtime. 2117 (Given - Provider: Mally Logan RN) dextrose 5 % - sodium chloride 0.9 % infusion IV, at 40 mL/hr, SEE ADMIN INSTRUCTIONS, Starting on Thu10/10/24 at 1323, Until Thu10/11/24 at 1734, Routine dextrose 5 % in water 250 mL flush bag 25 mL 25 mL, IV, SEE ADMIN INSTRUCTIONS, Starting on Thu10/10/24 at 0058, Until Thu10/11/24 at 1734, Routine dextrose 5 % in water 250 mL flush bag 25 mL 25 mL, IV, SEE ADMIN INSTRUCTIONS, Starting on Thu10/10/24 at 1232, Until Thu10/11/24 at 1734, Routine dextrose 50% (D50) syringe 12.5 Gram 12.5 Gram, IV, SEE ADMIN INSTRUCTIONS, Starting on Thu10/10/24 at 1323, Until Thu10/11/24 at 1734, Routine dextrose 50% (D50) syringe 25 Gram 25 Gram, IV, SEE ADMIN INSTRUCTIONS, Starting on Thu10/10/24 at 1323, Until Thu10/11/24 at 1734, Routine empagliflozin (JARDIANCE) tablet 10 mg 10 mg, Oral, DAILY EARLY, First dose on Thu10/11/24 at 0600, Until Discontinued, Routine, Previous Med: empagliflozin (JARDIANCE) 10 mg tablet - Orig Sig - Take 1 Tablet (10 mg) by mouth daily in the morning. , Indication: Heart Failure 0521 (Given - Provid er: Mally Logan RN) enoxaparin (LOVENOX) injection 100 mg 100 mg, subCUT, EVERY 12 HOURS, First dose on Thu10/10/24 at 1800, Until Discontinued, Routine, Previous Med: enoxaparin (LOVENOX) 100 mg/mL injection - Orig Sig - Inject 100 mg by subcutaneous injection every 12 hours. , Indication: TREATMENT of acute VTE/DVT/PE 1716 (Given - Provider: Savannah Murillo RN) 0520 (Given - Provider: Mally Logan RN) fluticasone furoate-vilanteroL (BREO ELLIPTA) 100-25 mcg/dose inhaler 1 Puff 1 Puff, Inhalation, DAILY RESPIRATORY, First dose on Thu10/10/24 at 1600, Until Discontinued, Routine 1631 (Given - Provider: Savannah Murillo RN) 1002 (Given - Provider: SYLVIA Laird) furosemide (LASIX) injection 40 mg (COMPLETED) 40 mg, IV, ONE TIME ONLY, 1 dose, On Thu10/10/24 at 0730, Stat 0810 (Given - Provider: Stella Ramirez RN) furosemide (LASIX) injection 40 mg 40 mg, IV, TWO TIMES DAILY, 7 HOURS APART, First dose on Thu10/10/24 at 1500, Until Discontinued, Routine 1532 (Given - Provider: Savannah Murillo RN) 1050 (Given - Provider: SYLVIA Laird)1500 (Due) glucagon HCL 1 mg/mL injection 1 mg 1 mg, IM, SEE ADMIN INSTRUCTIONS, Starting on Thu10/10/24 at 1323, Until Thu10/11/24 at 1734, Routine ibuprofen (MOTRIN) tablet 600 mg (COMPLETED) 600 mg, Oral, ONE TIME ONLY, 1 dose, On Thu10/10/24 at 0630, Routine 0625 (Given - Provider: Tejinder Hernandez RN) insulin glargine (LANTUS) injection 25 Units 25 Units, subCUT, DAILY AT BEDTIME, First dose on Thu10/10/24 at 2100, Until Discontinued, Routine, Previous Med: Lantus Solostar U-100 Insulin 100 unit/mL (3 mL) solution for injection - Orig Sig - Inject 25 Units by subcutaneous injection daily at bedtime. 2146 (Given - Provider: Mally Logan RN) insulin lispro (HumaLOG,ADMELOG) injection 0-18 Units 0-18 Units, subCUT, THREE TIMES DAILY WITH MEALS, First dose on Thu10/10/24 at 1330, Until Discontinued, Routine 1330 (Canceled Entry - Provider: Harika Wei RN)1715 (Given - Provider: Savannah Murillo RN - Comment: 32 total) 0725 (Given - Provider: SYLVIA Laird)1200 (Not Given - Provider: SYLVIA Laird - Reason: Lab results / vitals) insulin lispro (HumaLOG,ADMELOG) injection 10 Units (COMPLETED) 10 Units, subCUT, ONE TIME ONLY, 1 dose, On Thu10/10/24 at 2130, Routine 214 (Given - Provider: Mally Logan RN) insulin lispro (HumaLOG,ADMELOG) injection 14 Units 14 Units, subCUT, THREE TIMES DAILY WITH MEALS, First dose on Thu10/10/24 at 1330, Until Discontinued, Routine 1330 (Canceled Entry - Provider: Harika Wei RN)1714 (Given - Provider: Savannah Murillo RN) 0724 (Given - Provider: SYLVIA Laird)1134 (Given - Provider: SYLVIA Laird) ipratropium-albuteroL (DUONEB) 0.5 mg-3 mg(2.5 mg base)/3 mL inhalation solution 3 mL (COMPLETED) 3 mL, Inhalation, ONE TIME ONLY RESPIRATORY, 1 dose, On Thu10/10/24 at 0430, Routine 0429 (Given - Provider: Betito Gallegos RCP) Lidocaine 4 % topical patch 1 Patch 1 Patch, Topical, DAILY, First dose on Thu10/10/24 at 1530, Until Discontinued, Routine, Previous Med: Lidocaine 4 % Adhesive Patch, Medicated - Orig Sig - Back pain 1532 (Refused - Provider: Savannah Murillo RN) 1003 (Refused - Provider: SYLVIA Laird) methylPREDNISolone sodium succinate (SOLU-Medrol) 125 mg in sterile water 2 mL injection (COMPLETED) 125 mg, IV, ONE TIME ONLY, 1 dose, On Thu10/10/24 at 0430, Routine 0452 (Given - Provider: Tejinder Hernandez RN) metoprolol succinate (TOPROL XL) SR 24 hour tablet 25 mg 25 mg, Oral, DAILY, First dose on Thu10/10/24 at 1500, Until Discontinued, Routine, Previous Med: metoprolol succinate (TOPROL XL) 25 mg Extended Release 24 hour tablet - Orig Sig - Take 1 Tablet (25 mg) by mouth daily. 1531 (Given - Provider: Savannah Murillo RN) 1001 (Given - Provider: SYLVIA Laird) morphine 4 mg/mL injection 2 mg (COMPLETED) 2 mg, IV, ONE TIME ONLY, 1 dose, On Thu10/10/24 at 0845, Routine 0907 (Given - Provider: Stella Ramirez RN) naloxone (NARCAN) 0.4 mg/mL injection 0.1 mg 0.1 mg, IV, SEE ADMIN INSTRUCTIONS, Starting on Thu10/10/24 at 1232, Until Thu10/11/24 at 1734, Routine OLANZapine (ZyPREXA) tablet 10 mg 10 mg, Oral, DAILY AT BEDTIME, First dose on Thu10/10/24 at 2100, Until Discontinued, Routine, Previous Med: OLANZapine (ZyPREXA) 10 mg tablet - Orig Sig - Take 10 mg by mouth daily at bedtime. 2115 (Given - Provider: Mally Logan RN) oxyCODONE-acetaminophen (PERCOCET) 5-325 mg per tablet 1 Tablet (COMPLETED) 1 Tablet, Oral, ONE TIME ONLY, 1 dose, On Thu10/10/24 at 0630, Stat 0625 (Given - Provider: Tejinder Hernandez RN) ranolazine ER (RANEXA) SR 12 hour tablet 500 mg 500 mg, Oral, EVERY 12 HOURS, First dose on Thu10/10/24 at 2100, Until Discontinued, Routine, Previous Med: ranolazine ER (RANEXA) 500 mg Extended Release 12 hour tablet - Orig Sig - Take 1 Tablet (500 mg) by mouth every 12 hours. 2115 (Given - Provider: Mally Logan RN) 1001 (Given - Provider: SYLVIA Laird) sacubitriL-valsartan (ENTRESTO) 24-26 mg tablet 1 Tablet 1 Tablet, Oral, TWO TIMES DAILY, First dose on Thu10/10/24 at 2100, Until Discontinued, Routine, Previous Med: sacubitriL-valsartan (ENTRESTO) 24-26 mg Tablet - Orig Sig - Take 1 Tablet by mouth 2 times daily. 2115 (Given - Provider: Mally Logan RN) 1002 (Given - Provider: SYLVIA Laird) sodium chloride 0.9 % flush bag 25 mL 25 mL, IV, SEE ADMIN INSTRUCTIONS, Starting on Thu10/10/24 at 0058, Until Thu10/11/24 at 1734, Routine sodium chloride 0.9 % flush bag 25 mL 25 mL, IV, SEE ADMIN INSTRUCTIONS, Starting on Thu10/10/24 at 1232, Until Thu10/11/24 at 1734, Routine sodium chloride flush injection 10 mL 10 mL, IV, EVERY 12 HOURS (BlD), First dose on Thu10/10/24 at 0100, Until Discontinued, Routine 0100 (Admin by Another Clinician (Comment) - Provider: Stella Ramirez RN)0900 (Admin by Another Clinician (Comment) - Provider: Stella Ramirez RN)2100 (Canceled Entry - Provider: Mally Logan RN) 1053 (Given - Provider: SYLVIA Laird) sodium chloride flush injection 10 mL 10 mL, IV, SEE ADMIN INSTRUCTIONS, Starting on Thu10/10/24 at 0058, Until Thu10/11/24 at 1734, Routine sodium chloride flush injection 10 mL 10 mL, IV, EVERY 12 HOURS (BlD), First dose on Thu10/10/24 at 1245, Until Discontinued, Routine 1245 (Canceled Entry - Provider: Harika Wei RN)2116 (Given - Provider: Mally Logan RN) 1003 (Given - Provider: SYLIVA Laird) sodium chloride flush injection 10 mL 10 mL, IV, SEE ADMIN INSTRUCTIONS, Starting on Thu10/10/24 at 1232, Until Thu10/11/24 at 1734, Routine umeclidinium (INCRUSE ELLIPTA) 62.5 mcg/actuation inhaler 1 Puff 1 Puff, Inhalation, DAILY RESPIRATORY, First dose on Thu10/10/24 at 1600, Until Discontinued, Routine 1631 (Given - Provider: Savannah Murillo RN) 1002 (Given - Provider: SYLVIA Laird) PRN Medication Order 10/09/2024 10/10/2024 10/11/2024 acetaminophen (TYLENOL) tablet 650 mg 650 mg, Oral, EVERY 6 HOURS PRN, Starting on Thu10/10/24 at 1232, Until Thu10/11/24 at 1734, Other (See Comment), See admin instructions, Routine albuterol sulfate 90 mcg/Actuation inhaler 2 Puff 2 Puff, Inhalation, EVERY 4 HOURS PRN RESPIRATORY, Starting on Thu10/10/24 at 1747, Until Thu10/11/24 at 1734, Shortness of Breath, Routine HYDROcodone-acetaminophen (NORCO) 7.5-325 mg per tablet 1 Tablet 1 Tablet, Oral, EVERY 6 HOURS PRN, Starting on Thu10/10/24 at 1444, Until Thu10/11/24 at 1734, Pain, Moderate, Pain, Severe, Routine, Previous Med: HYDROcodone-acetaminophen (NORCO) 7.5-325 mg Tablet - Orig Sig - Take 1 Tablet by mouth every 8 hours as needed for Pain, Moderate or Pain, Severe. 1532 (Given - Provider: Savannah Murillo RN)2115 (Given - Provider: Mally Logan RN) 0424 (Given - Provider: Mally Logan RN)1511 (Given - Provider: SYLVIA Laird) ipratropium-albuteroL (DUONEB) 0.5 mg-3 mg(2.5 mg base)/3 mL inhalation solution 3 mL 3 mL, Inhalation, EVERY 4 HOURS PRN RESPIRATORY, Starting on Thu10/10/24 at 1444, Until Thu10/11/24 at 1734, Shortness of Breath, Wheezing, Routine, Previous Med: ipratropium-albuteroL (DUONEB) 0.5 mg-3 mg(2.5 mg base)/3 mL Solution for Nebulization - Orig Sig - Take 3 mL by inhalation every 4 hours as needed for Shortness of Breath. LORazepam (ATIVAN) tablet 0.5 mg 0.5 mg, Oral, EVERY 8 HOURS PRN, Starting on Thu10/10/24 at 1557, Until Thu10/11/24 at 1734, Anxiety, Routine, Previous Med: LORazepam (ATIVAN) 0.5 mg tablet - Orig Sig - Take 1 Tablet (0.5 mg) by mouth every 8 hours as needed for Anxiety. melatonin tablet 3 mg 3 mg, Oral, NIGHTLY PRN, Starting on Thu10/10/24 at 1234, Until Thu10/11/24 at 1734, Insomnia, Routine morphine 4 mg/mL injection 2 mg 2 mg, IV, EVERY 4 HOURS PRN, Starting on Thu10/10/24 at 1602, Until Thu10/11/24 at 1734, Pain (See admin instructions), Routine 1630 (Given - Provider: Savannah Murillo RN)2221 (Given - Provider: Mally Logan, MARICARMEN) 0521 (Given - Provider: Mally Logan RN) ondansetron (ZOFRAN) 4 mg/2 mL injection 4 mg 4 mg, IV, EVERY 6 HOURS PRN, Starting on Thu10/10/24 at 1232, Until Thu10/11/24 at 1734, Nausea/Emesis, Routine tiZANidine (ZANAFLEX) tablet 2 mg 2 mg, Oral, EVERY 8 HOURS PRN, Starting on Thu10/10/24 at 1444, Until Thu10/11/24 at 1734, Pain, Spasm, Routine, Previous Med: tiZANidine (ZANAFLEX) 2 mg Tablet - Orig Sig - Take 2 mg by mouth every 8 hours as needed. 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
[2024-10-12 02:42] VITALS: BP 151/76; PULSE 48; RESP 20; TEMP 36.7; O2SAT 95; BMI 36.3
--- NOTE | 2024-10-12 02:46 | CTR_ITS ---
PROCEDURE INFORMATION: Exam: CT Chest With Contrast; Diagnostic Exam date and time: 10/12/2024 4:02 AM Age: 59 years old Clinical indication: Injury or trauma; Fall; Blunt; Generalized; Other: Rib pain; Prior surgery; Surgery date: 6+ months; Surgery type: Spleenectomy TECHNIQUE: Imaging protocol: Diagnostic computed tomography of the chest with contrast. Radiation optimization: All CT scans at this facility use at least one of these dose optimization techniques: automated exposure control; mA and/or kV adjustment per patient size (includes targeted exams where dose is matched to clinical indication); or iterative reconstruction. Contrast material: OMNI 350; Contrast volume: 100 ml; Contrast route: INTRAVENOUS (IV); COMPARISON: CT angio chest PE protcl [id number] 09/07/2023 7:48 PM RADIATION DOSE METRICS: Total DLP (mGy-cm): 661.8 FINDINGS: Lungs: Platelike atelectasis is present at the left lung base. No consolidation. No masses. Pleural spaces: Unremarkable. No pneumothorax. No pleural effusion. Heart: Moderate coronary artery calcification is present.. No cardiomegaly. No pericardial effusion. Lymph nodes: Unremarkable. No enlarged lymph nodes. Vasculature: Unremarkable. No aortic aneurysm. Bones/joints: Lower anterior cervical fusion. Thoracic spondylosis. No acute fracture. Soft tissues: Right mastectomy. PROCEDURE INFORMATION: Exam: CT Abdomen And Pelvis With Contrast Exam date and time: 10/12/2024 4:02 AM Age: 59 years old Clinical indication: Injury or trauma; Fall; Blunt; Generalized; Other: Rib pain; Prior surgery; Surgery date: 6+ months; Surgery type: Spleenectomy TECHNIQUE: Imaging protocol: Computed tomography of the abdomen and pelvis with contrast. Radiation optimization: All CT scans at this facility use at least one of these dose optimization techniques: automated exposure control; mA and/or kV adjustment per patient size (includes targeted exams where dose is matched to clinical indication); or iterative reconstruction. Contrast material: OMNI 350; Contrast volume: 100 ml; Contrast route: INTRAVENOUS (IV); COMPARISON: CT abdomen pelvis wo con [id number] 08/11/2023 12:19 PM RADIATION DOSE METRICS: Total DLP (mGy-cm): 957.8 FINDINGS: Liver: There is diffuse hepatic steatosis. No mass. Gallbladder and biliary ducts: Gallbladder is contracted. No calcified stones. No ductal dilation. Pancreas: Normal. No ductal dilation. Spleen: Status post splenectomy. Adrenal glands: Normal. No mass. Kidneys and ureters: Normal. No hydronephrosis. Stomach and bowel: Unremarkable. No obstruction. Appendix: No evidence of appendicitis. Intraperitoneal space: Unremarkable. No free air. No significant fluid collection. Vasculature: Unremarkable. No abdominal aortic aneurysm. Lymph nodes: Unremarkable. No enlarged lymph nodes. Urinary bladder: Unremarkable as visualized. Reproductive: Unremarkable as visualized Bones/joints: There is a compression deformity associated with the upper vertebral body endplate of L1 which has developed since the CT examination of the chest from 09/07/2023. No acute fracture. Soft tissues: Unremarkable. CT/CT chest abdpel w/*[id number] IMPRESSION: No acute findings. IMPRESSION: 1. There is a compression deformity associated with the upper vertebral body endplate of L1 which has developed since the CT examination of the chest from 09/07/2023. There are some chronic features associated with the fracture which may not reflect evidence of acute traumatic injury. Clinical correlation is recommended. If warranted, further investigation with an MRI examination may be considered. 2. Incidental note of diffuse hepatic steatosis.
--- OUTSIDE RECORDS SUMMARY | 2024-10-12 02:46 | XMS_ITS | Encounter Summary ---
Author Organization [facility] Address [address] [place] [address] Care Team Providers Care Yarn Salvager Name Role Phone Delta Wade MD Primary Care Provider [phone] Reason for Visit * Reason Comments Hospital Follow Up Encounter Details Date Type Department Care Team ([facility] st Contact Info) Description 05/13/2024 Telephone [facility] [address] [place] [address] Kay Lima, [facility] [address] [place] [address] Hospital Follow Up Social History Tobacco Use Types Packs/Day Years Used Date Smoking Tobacco: Former Cigarettes Q uit: 07/21/2022 Smokeless Tobacco: Never Alcohol Use Standard Drinks/Week Comments No 0 (1 standard drink = 0.6 oz pur e alcohol) Comments No Sex and Gender Information Value Date Recorded Sex Assigned at Not on file 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 Could not leave voicemail. If patient calls back please schedule for hospital follow up appointment for the next opening spot. Can be vv if patient cannot travel to clinic. NG COREBOARD INSPECTOR * Telephone Encounter - Gypsy Gerber - 05/13/2024 12:02 PM CST Copied from [facility] #[id number]. Topic: Reschedule/Cancel Appointment/Late Arrival >> May 13, [...] of hospital discharge? 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 documented in this encounter Plan of Treatment Upcoming Encounters Date Type Department Care Team (Late st Contact Info) Description 11/14/2024 3:30 PM CDT Office Visit [facility] [address] [place] [address] Jerson Salas PA [address] [place] [address] 01/12/2025 1:40 PM CDT Office Visit [facility] [address] [place] [address] Tresa Stockton FNP [address] [place] [address] documented as of this encounter [...] R/O COVID-19 05/13/2024 05/13/2024 05/14/2024 4:15 AM SIDING COREBOARD INSPECTOR R/O Respiratory 06/30/2024 06/30/2024 06/30/2024 1 0:36 [...] AM CDT R/O Respiratory 08/14/2024 08/14/2024 08/14/2024 8:19 PM CDT R/O GI Pathogen 08/14/2024 08/14/2024 [...] 09/13/2024 09/13/2024 09/14/2024 8 :37 AM CDT R/O COVID-19 10/08/2024 10/08/2024 10/08/2024 6:38 PM CDT R/O GI Pathogen 10/10/2024 10/11/2024 10/11/2024 1 :26 PM CDT documented as of this encounter Care Teams Yarn Salvager Relationship Specialty Start Date End Date Delta Wade MD [address] [address] PCP - General Family Practice 03/25/24 documented as of this encounter
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
--- OUTSIDE RECORDS SUMMARY | 2024-10-12 02:46 | XMS_ITS | Encounter Summary ---
Author Organization [facility] Address [address] [place] [address] Care Team Providers Care Celery Cutter Name Role Phone Delta Wade MD Primary Care Provider [phone] Encounter Details Date Type Department Care Team ([facility] st Contact Info) Description 06/16/2024 Telephone [facility] Ophthalmology [address] [place] 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 Gender Identity Not on file Sexual Orientation [...] Description 11/14/2024 3:30 PM CDT Office Visit [facility] Neuro[facility] [address] [place] [address] [place] [address] Jerson Salas PA [address] [place] [address] 01/12/2025 1:40 PM CDT Office Visit [facility] [address] [place] [address] Tresa Stockton, [place] [address] [place] [address] documented as of this encounter [...] 5 :38 AM CDT R/O Respiratory 08/14/2024 08/14/202408/14/2024 8 :19 PM CDT R/O GI Pathogen [...] documented as of this encounter Care Teams Celery Cutter Relationship Specialty Start Date End Date Delta Wade MD [address] [place] [id number] PCP - General Family Practice 03/25/24 documented as of this encounter
--- OUTSIDE RECORDS SUMMARY | 2024-10-12 02:47 | XMS_ITS | Encounter Summary ---
Author Organization [facility] Address [address] 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 Gender Identity Not on file Sexual Orientation Not on file documented as of this encounter Plan of Treatment Upcoming Encounters Date Type Department Care Team (Late st Contact Info) Description 11/14/2024 3:30 PM CDT Office Visit [facility] Neuro[facility] [address] [place] [address] [place] [address] Jerson Salas PA [address] [place] [address] 01/12/2025 1:40 PM CDT Office Visit [facility] [address] [place] [address] Tresa Stockton, [place] [address] [place] [address] documented as of this encounter [...] documented as of this encounter Care Teams Insurance Follow Up Rep Relationship Specialty Start Date End Date Delta Wade MD [address] [address] PCP - General Family Practice 03/25/24 documented as of this encounter
--- OUTSIDE RECORDS SUMMARY | 2024-10-12 02:47 | XMS_ITS | Encounter Summary ---
Author Organization [facility] Address [address] 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 Neurosurgery [address] [place] [address] [place] [address] Jerson Salas PA [address] [place] [address] 01/12/2025 1:40 PM CDT Office Visit [facility] [address] [place] [address] Tresa Stockton, [place] [address] [place] [address] documented as of this encounter [...] documented as of this encounter Care Teams Grease Worker Relationship Specialty Start Date End Date Delta Wade MD [address] [place] [address] PCP - General Family Practice 03/25/24 documented as of this encounter
--- OUTSIDE RECORDS SUMMARY | 2024-10-12 02:47 | XMS_ITS | Encounter Summary ---
Author Organization [facility] Address [address] [place] [address] Care Team Providers Care Bulk Filler Name Role Phone Delta Wade MD Primary Care Provider [phone] Reason for Visit * Reason Comments Question Encounter Details Date Type Department Care Team ([facility] st Contact Info) Description 10/07/2024 Telephone [facility] [place] [facility] [address] [place] [address] Ryann Burk MD [address] [place] [address] Question Social History Tobacco Use Types Packs/Day Years Used Date Smoking Tobacco: Former Cigarettes 1 43 S tarted: 07/21/2022 Smokeless Tobacco: Never Alcohol Use Standard Drinks/Week Comments No 0 (1 standard drink = 0.6 oz pur e alcohol) Comments No Sex and Gender Information Value Date Recorded Sex Assigned at Not on file 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 As it does not make sense that they would Do they just not accept her insurance? It does not make sense that the state would delegate who she sees otherwise? Latonya FROST 10/07/2024 3:45 PM Returned call and spoke with patient. Discussed not seeing Dr. Wade anymore, the State has stepped in and wants me to see Dr. Burk, I am not sure why, because I like Dr. Wade, but I also like Dr. Burk so I just wanted to make sure Latonya FROST Copied from [facility] #[id number]. Topic: CPA Information Request >> Oct 07, 2024 2:03 PM Breann Hawley wrote: Caller Name: Vanessa Barnhart Callback Number: [phone] Call Notes: Patient is required by the [facility] with Dr Burk if doctor will let her re-establish care. Please contact and advise if this is possible. * Telephone Encounter - Latonya Anguiano LPN - 10/07/2024 3:45 PM CDT 10/07/2024 3:45 PM Returned call and spoke with patient. Discussed not seeing Dr. Wade anymore, the State has stepped in and wants me to see Dr. Burk, I am not sure why, because I like Dr. Wade, but I also like Dr. Burk so I just wanted to make sure Latonya FROST Copied from [facility] #[id number]. Topic: CPA Information Request >> Oct 07, 2024 2:03 PM Breann Hawley wrote: Caller Name: Vanessa Barnhart Callback Number: [phone] Call Notes: Patient is required by the State with Dr Burk if doctor will let her re-establish care. Please contact and advise if this is possible. * Telephone Encounter - Mai Breann Campo - 10/07/2024 2:04 PM CDT Copied from [facility] #[id number]. Topic: CPA Information Request >> Oct 07, 2024 2:03 PM Breann Hawley wrote: Caller Name: Vanesas Barnhart Callback Number: [phone] Call Notes: Patient is required by the State with Dr Burk if doctor will let her re-establish care. Please contact and advise if this is possible. documented in this encounter Plan of Treatment Upcoming Encounters Date Type Department Care Team (Late st Contact Info) Description 11/14/2024 3:30 PM CDT Office Visit [facility] Neurosurgery [address] [place] [address] [place] [address] Jerson Salas, [place] [address] [place] [address] 01/12/2025 1:40 PM CDT Office Visit [facility] [address] [place] [address] Tresa Stockton, [facility] [address] [place] [address] documented as of this encounter [...] documented as of this encounter Care Teams Bulk Filler Relationship Specialty Start Date End Date Delta Wade MD [address] [address] PCP - General Family Practice 03/25/24 documented as of this encounter
--- OUTSIDE RECORDS SUMMARY | 2024-10-12 02:47 | XMS_ITS | Encounter Summary ---
Author Organization [facility] Address [address] [place] [address] Care Team Providers Care Safety Instruction Police Officer Name Role Phone Delta Wade MD Primary Care Provider [phone] Reason for Visit * Reason Onset Date Comments Documentation Only 10/07/2024 Encounter Details Date Type Department Care Team ([facility] st Contact Info) Description 10/07/2024 Telephone [facility] Ophthalmology [place] 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 I put her on hold to try get day/time or timeline from team but patient disconnected the call. I sent a staff message to the team to return her call. documented in this encounter Plan of Treatment Upcoming Encounters Date Type Department Care Team (Late st Contact Info) Description 11/14/2024 3:30 PM CDT Office Visit [facility] [place] Neurosurgery [address] [place] [address] [place] [address] Jerson Salas, [place] [address] [place] [address] 01/12/2025 1:40 PM CDT Office Visit [facility] [address] [place] [address] Tresa Stockton, [facility] [address] [place] [address] documented as of this encounter Goals Goal Patient Goal Type Associated Problems Recent Progress Patient-Stated? Author Heart Failure Goal Care Plan Heart Failure Problem No Latonya Anguiano LPN documented as of this encounter Visit Diagnoses Not on filedocumented in this encounter Additional Health Concerns Active Problems Noted Date Diagnosed Date Heart Failure Problem 05/12/2024 documented as of this encounter Care Teams Safety Instruction Police Officer Relationship Specialty Start Date End Date Delta Wade MD [address] [id number] PCP - General Family Practice 03/25/24 documented as of this encounter
--- OUTSIDE RECORDS SUMMARY | 2024-10-12 02:47 | XMS_ITS | Clinical Summary ---
[facility] Address [address] [place] [address] Phone Care Team Providers Care Carpenter Rough Name Role Phone Delta Wade MD Primary Care Provider Allergies Active Allergy Reactions Criticality Noted Date Comments Codeine Itching Low 09/10/2018 Hydrocodone Rash Low 10/10/2024 Ketorolac Tromethamine Hives High 04/04/2008 Prochlorperazine Hives,Seizure High 07/02/2014 Propoxyphene Nausea and Vomiting High 07/02/2014 Propoxyphene N-Acetaminophen Nausea and Vomiting Low 08/03/2007 Tramadol Hives High 09/26/2019 Medications OneTouch Delica Plus Lancet 30 gauge USE TO test fasting blood glucose DAILY 023 Active Blood-Glucose Meter KitIndications: Type 2 diabetes mellitus without complication, without long-term current use of insulin ([facility]) Use to test blood glucose up to TID PRN symptoms. 1 Each 023 Active blood sugar diagnostic StripIndication s:Type 2 diabetes mellitus without complication, without long-term current use of insulin ([facility]) Use to test blood glucose up to QID PRN symptoms. 100 Each 11 023 Active TechLITE Pen Needle 29 gauge x 1/2 Needle USE directed with Victoza. 023 Active naloxone (NARCAN) 4 mg/spray [place], Non-Aerosol EMERGENCY USE ONLY: Administer 1 spray (4 mg) in one nostril one time. May repeat in alternating nostrils every 2-3 min until responsive or EMS arrives. 2 Each 3 023 Active portable oxygenIndicatio ns:Chronic obstructive pulmonary disease, unspecified COPD type (CMS/HCC),Oxyge n dependent Face to Face completed within 30 days: yes Length of Need: 99 months By: Nasal Cannula Continuously at 3 L/min. 1 Each Active promethazine-de xtromethorphan (PHENERGAN-DM) 6.25-15 mg/5 mL syrup Take 10 mL by mouth every 4 hours as needed for Cough. Active fluorouraciL (EFUDEX) 5 % Cream APPLY TO AFFCETED AREA TWICE A DAY FOR 4 WEEKS Active warfarin (COUMADIN) 10 mg tablet Take 1 Tablet by mouth daily. Active LORazepam (ATIVAN) 0.5 mg tabletIndicatio ns:Anxiety state Take 1 Tablet (0.5 mg) by mouth every 8 hours as needed for Anxiety. 20 Tablet Active OLANZapine (ZyPREXA) 10 mg tablet Take 10 mg by mouth daily at bedtime. Active aspirin (CARTER CHEWABLE) 81 mg Tablet, Chewable Take 81 mg by mouth daily. Active atorvastatin (LIPITOR) 40 mg tablet Take 40 mg by mouth daily at bedtime. Active potassium CHLORIDE (KLOR-CON) 10 mEq Extended Release tablet Take 1 Tablet by mouth daily. Active tiZANidine (ZANAFLEX) 2 mg Tablet Take 2 mg by mouth every 8 hours as needed. Active nitroglycerin (NITROSTAT) 0.4 mg Tablet, Sublingual Place 0.4 mg under tongue. Active isosorbide mononitrate (IMDUR) 30 mg Extended Release 24 hour tabletIndicatio ns:Chest pain, unspecified type,Congestive heart failure, unspecified HF chronicity, unspecified heart failure type (CMS/HCC) TAKE 1 TABLET BY MOUTH EVERY DAY 30 Tablet 1 Active Ventolin HFA 90 mcg/actuation inhaler Take 2 Puffs by inhalation every 6 hours as needed. Active insulin lispro (HumaLOG,ADMELO G) 100 unit/mL pen syringe Inject 14 Units by subcutaneous injection 3 times daily with meals. Active Lantus Solostar U-100 Insulin 100 unit/mL (3 mL) solution for injection Inject 25 Units by subcutaneous injection daily at bedtime. Active oxygen home delivery Home Oxygen Concentrator yes at 3 L/M Rest, 3 L/M Activity, 3 L/M Sleep, Delivery Device: Nasal Cannula Portability: yes, 3 L/M Rest, L/M Activity, May provide device best for patient needs(E system,home fill, conserving device) Length of Need: 99 months 1 Each Active triamcinolone acetonide (KENALOG) 0.1 % OintmentIndicat ions:Dermatitis Apply to affected area 2 times daily as needed for Other (See Comment) (rash). 10 Gram Active levalbuterol (XOPENEX) 1.25 mg/3 mL Solution for Nebulization Take 1.25 mg by inhalation every 6 hours as needed for Shortness of Breath or Wheezing. Active ranolazine ER (RANEXA) 500 mg Extended Release 12 hour tablet Take 1 Tablet (500 mg) by mouth every 12 hours. 60 Tablet 1 025 2024 Active budesonide 160 mcg-glycopyr 9 mcg-formot 4.8 mcg/actuation HFA inhaler Take 2 Puffs by inhalation 2 times daily. 60 Each 1 025 2024 Active ipratropium-alb uteroL (DUONEB) 0.5 mg-3 mg(2.5 mg base)/3 mL Solution for Nebulization Take 3 mL by inhalation every 4 hours as needed for Shortness of Breath. 300 mL 1 Active Nebulizer & Compressor For Neb Device every 4 hours as needed for Other (See Comment) (shortness of breath). 1 Each Active Lidocaine 4 % Adhesive Patch, Medicated Back pain 6 Patch Active Additional Information Patient not taking.Reported on 10/10/2024 empagliflozin (JARDIANCE) 10 mg tablet Take 1 Tablet (10 mg) by mouth daily in the morning. 30 Tablet Active metoprolol succinate (TOPROL XL) 25 mg Extended Release 24 hour tablet Take 1 Tablet (25 mg) by mouth daily. 30 Tablet Active sacubitriL-vals treva (ENTRESTO) 24-26 mg Tablet Take 1 Tablet by mouth 2 times daily. 60 Tablet Active doxycycline hyclate (VIBRAMYCIN) 100 mg tablet Take 1 Tablet (100 mg) by mouth 2 times daily. 20 Tablet Active HYDROcodone-miri taminophen (NORCO) 7.5-325 mg Tablet Take 1 Tablet by mouth every 8 hours as needed for Pain, Moderate or Pain, Severe. Active enoxaparin (LOVENOX) 100 mg/mL injection Inject 100 mg by subcutaneous injection every 12 hours. Active furosemide (LASIX) 40 mg tablet Take 1 Tablet (40 mg) by mouth 2 times daily. 60 Tablet 3 Active sertraline (ZOLOFT) 50 mg tablet Take 1 Tablet by mouth daily. 024 2024 Discontinued rOPINIRole (REQUIP) 0.5 mg tablet Take 0.5 mg by mouth daily at bedtime. 024 2024 Discontinued amLODIPine (NORVASC) 2.5 mg tablet Take 2.5 mg by mouth late in the day. 024 2024 Discontinued ipratropium-alb uteroL (DUONEB) 0.5 mg-3 mg(2.5 mg base)/3 mL Solution for Nebulization Take 3 mL by inhalation every 6 hours as needed for Shortness of Breath. 60 Each 1 025 2024 predniSONE (DELTASONE) 20 mg tablet Take 2 Tablets (40 mg) by mouth daily with breakfast for 3 days, THEN 1.5 Tablets (30 mg) daily with breakfast for 3 days, THEN 1 Tablet (20 mg) daily with breakfast for 3 days, THEN 0.5 Tablets (10 mg) daily with breakfast for 3 days. 15 Tablet 025 2024 Discontinued predniSONE (DELTASONE) 20 mg tablet Take 1 Tablet (20 mg) by mouth 2 times daily with meals. 10 Tablet 025 2024 Discontinued azithromycin (ZITHROMAX) 250 mg tablet Take 2 Tablets (500 mg) by mouth daily for 1 day, THEN 1 Tablet (250 mg) daily for 4 days. 6 Tablet 025 2024 Discontinued furosemide (LASIX) 40 mg tablet Take 1 Tablet (40 mg) by mouth daily. 30 Tablet 1 025 2024 Discontinued predniSONE (DELTASONE) 20 mg tablet Take 2 Tablets (40 mg) by mouth daily with breakfast for 3 days, THEN 1.5 Tablets (30 mg) daily with breakfast for 3 days, THEN 1 Tablet (20 mg) daily with breakfast for 3 days, THEN 0.5 Tablets (10 mg) daily with breakfast for 3 days. 15 Tablet 025 2024 azithromycin (ZITHROMAX) 250 mg tablet Take 2 Tablets (500 mg) by mouth daily for 1 day, THEN 1 Tablet (250 mg) daily for 4 days. 6 Tablet 025 2024 predniSONE (DELTASONE) 20 mg tablet 2 tabs po daily for 5 days 10 Tablet 025 2024 Discontinued(D uplicate Therapy) predniSONE (DELTASONE) 10 mg tablet Take 10 mg by mouth see administration instructions. 4 TABS DAILY X 5 DAYS, 3 TABS DAILY X 5 DAYS, 2 DAILY FOR 5 DAYS THEN 1 DAILY FOR 5 DAYS THEN STOP 025 2024 Discontinued Hospital, Clinic, or Other Facility Administered Medication Ordered Dose Route Frequency Start Date End Date Status proparacaine (OPTHAINE) 0.5 % ophthalmic solution 2 DropIndications:V itreous hemorrhage of right eye (CMS/HCC) 2 Drop Both Eyes ONE TIME ONLY 09/06/2024 Active tropicamide (MYDRIACYL) 1 % ophthalmic solution 1 DropIndications:V itreous hemorrhage of right eye (CMS/HCC) 1 Drop Both Eyes ONE TIME ONLY 09/06/2024 Active phenylephrine 2.5 % ophthalmic solution 1 DropIndications:V itreous hemorrhage of right eye (CMS/HCC) 1 Drop Both Eyes ONE TIME ONLY 09/06/2024 Active fluorescein (AK-ABHI, FLUORESCITE) 500 mg/5 mL (10 %) injection 1 mLIndications:Vit reous hemorrhage of right eye (CMS/HCC) 1 mL IV ONE TIME ONLY 09/06/2024 Active sodium chloride 0.9% vial - DILUENTIndication s:Vitreous hemorrhage of right eye (CMS/HCC) 3 mL IV ONE TIME ONLY 09/06/2024 Discontinued Active Problems Problem Noted Date Diagnosed Date Dark stools 10/10/2024 Acute respiratory failure with hypercapnia 09/13 Diarrhea [...] Acute on chronic hypoxic respiratory failure 04/2024 Acute respiratory distress 07/19/2024 Macrocytosis 07/19/2024 Chronic combined systolic and diastolic [...] 06/14/2019 H/O vaginal surgery 06/14/2019 Atherosclerosis of havasupai co ronary artery of havasupai heart without angina pectoris 06/14/2019 Urinary incontinence [...] hypercapnia 07/22/2024 08/09/2024 COPD exacerbation 07/21/2024 08/09/2024 Melena 03/19/2024 07/12/2024 Coffee ground emesis 03/19/2024 025 Pneumonia due to COVID-19 virus 02/18/2024 07/12/2024 Community acquired pneumonia 02/18/2024 07/12/2024 Nausea and vomiting 05/31/2023 07/13/19 25 Yeast infection involving th e vagina and surrounding area 01/06/2022 12/02/2022 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 09/26/2019 12/17/2022 Cancer Staging:Clinical:FIGO Stage III- Signed by Jenniffer Lepe, SHIRLEY-RANDAL on 09/29/2019 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 Encounters Date Type Department Care Team Description 10/10/2024 3:33 AM CDT - 10/11/2024 3:29 PM CDT Hospital Encounter [facility] 4A Cardiac [address] [place] [address] Anita López MD Bajor, Conrad Mitchell, DO Salana, Jasper Gutierrez MD Acute respiratory distress Discharge Disposition: Home or Self Care 10/10/2024 Travel 10/08/2024 6:07 PM CDT - 10/08/2024 10:40 PM CDT Emergency [facility] Emergency Department [address] [place] [phone] Anderson Marie DO COPD with exacerbation (CMS/HCC) (Primary Dx) Discharge Disposition: Home or Self Care 10/08/2024 Travel 10/07/2024 Telephone [facility] Op[facility] [place] [address] [place] [phone] Eduardo Craven MD Documentation Only 10/07/2024 Telephone [facility] [address] [address] [place] [address] Ryann Burk MD Question 10/04/2024 Orders Only [facility] Neurosurgery [address] [place] [address] Jerson Salas PA Closed fracture of first lumbar vertebra, unspecified fracture morphology, initial encounter ([facility]) (Primary Dx) 10/01/2024 2:44 PM CDT - 10/03/2024 1:00 PM CDT Hospital Encounter [facility] 4A Cardiac [address] [place] [phone] Huy Ornelas MD Patel, Taksh, MD Mady, Mohamed Hamdy Ahmed Mohamed, MD Kuppi Reddy, Madhavi, MD Chest pain Discharge Disposition: Home or Self Care 09/28/2024 4:25 PM CDT - 09/28/2024 5:54 PM CDT Emergency [facility] Emergency Department [address] [place] [phone] Austin Robertson MD Montana, Robert C, MD Drug-seeking behavior (Primary Dx) Discharge Disposition: Left Against Medical Advice 09/22/2024 11:44 PM CDT - 09/23/2024 9:48 AM CDT Emergency [facility] Emergency Department [address] [place] [phone] Discharge Disposition: Left without being seen 09/22/2024 Travel 09/16/2024 11:40 PM CDT - 09/16/2024 11:41 PM CDT Emergency [facility] Emergency Department [address] [place] [address] Discharge Disposition: Left without being seen 09/12/2024 9:13 PM CDT - 09/15/2024 12:26 PM CDT Hospital Encounter [facility] 4B Cardiac [address] [place] [phone] Robbie Yen, DO Abbas, MD Esperanza Soto, MD La Perez, Michael Mathew MD COPD exacerbation ([facility]/HCC) Discharge Disposition: Home or Self Care 09/10/2024 8:59 PM CDT - 09/11/2024 12:42 AM CDT Emergency [facility] Emergency Department [address] [place] [address] Layton Barrow MD Chronic hypoxemic respiratory failure (CMS/HCC) (Primary Dx); Type 2 diabetes mellitus with hyperglycemia, with long-term current use of insulin ([facility]); Pulmonary emphysema, unspecified emphysema type ([facility]/HCC) Discharge Disposition: Home or Self Care 09/10/2024 12:46 PM CDT - 09/10/2024 11:59 PM CDT Hospital Encounter [facility] [address] [place] [address] Don Causey, Discharge Disposition: Home or Self Care 09/10/2024 11:40 AM CDT - 09/10/2024 11:59 PM CDT Hospital Encounter [facility] [place] [address] [place] [address] Don Causey, Discharge Disposition: Home or Self Care 09/09/2024 10:42 PM CDT - 09/09/2024 10:46 PM CDT Emergency [facility] Emergency Department [address] [place] [address] Discharge Disposition: Left without being seen 09/09/2024 5:38 AM CDT - 09/09/2024 12:01 PM CDT Emergency [facility] Emergency Department [address] [place] [address] Cassius Sanderson MD Acute on chronic congestive heart failure, unspecified heart failure type ([facility]/HCC) (Primary Dx) Discharge Disposition: Home or Self Care 09/09/2024 Travel 09/01/2024 Orders Only [facility] Neurosurgery [address] [place] [address] Jerson Salas PA Closed fracture of first lumbar vertebra, unspecified fracture morphology, initial encounter ([facility]) (Primary Dx) 08/29/2024 7:55 PM CDT - 08/30/2024 2:43 PM CDT Emergency [facility] Emergency Department [address] [place] [phone] Danitza Wayne MD Mady, Mohamed Hamdy Ahmed Mohamed, MD COPD with exacerbation ([facility]) (Primary Dx) Discharge Disposition: Home or Self Care 08/23/2024 Telephone [facility] [address] [place] [phone] Veronika Yusuf RN Anticoagulation 08/22/2024 4:18 PM CDT - 08/26/2024 6:26 PM CDT Hospital Encounter [facility] 4A Cardiac [address] [place] [address] Austin Robertson MD Abbas, MD Lacie Soto Abhaya, MD COPD exacerbation ([facility]) Discharge Disposition: Home or Self Care 08/22/2024 Travel 08/20/2024 9:19 PM CDT - 08/20/2024 9:22 PM CDT Emergency [facility] Emergency Department [address] [place] [phone] Discharge Disposition: Left without being seen 08/20/2024 Travel 08/18/2024 2:20 AM CDT - 08/18/2024 3:03 PM CDT Hospital Encounter [facility] 4B Cardiac [address] [place] [address] Danny Mclean MD Gibert, Christopher L, MD Abbas, MD [place] S[place] Tasnuva Tarannum, MD Back pain Discharge Disposition: Home or Self Care 08/16/2024 Telephone [facility] [address] [place] [address] Veronika Yusuf, RN Anticoagulation 08/14/2024 6:00 PM CDT - 08/16/2024 1:22 PM CDT Hospital Encounter [facility] 4B Cardiac [address] [place] [address] Aki Booth, DO Baig, MD Rajesh Soto Lisa K, MD Kaur, MD Trini Closed compression fracture of body of L1 vertebra (CMS/HCC) Discharge Disposition: Home or Self Care 08/07/2024 8:18 PM CDT - 08/07/2024 8:45 PM CDT Emergency [facility] Emergency Department [address] [place] [address] Discharge Disposition: Left Against Medical Advice 08/05/2024 Telephone [facility] [address] [place] [address] Veronika Yusuf, RN Anticoagulation 08/04/2024 3:41 AM CDT - 08/06/2024 4:06 PM CDT Hospital Encounter [facility] 7B Medical Surgical [address] [place] [address] Danny Mclean MD Abbas, MD Alirio Soto Saroj, MD Bajor, Kapil Johnson DO Acute on chronic respiratory failure with hypoxia and hypercapnia (CMS/HCC) Discharge Disposition: Home or Self Care 08/04/2024 Results Follow-Up [facility] Emergency Department [address] [place] [phone] Ayana Roman, RN BLOOD CULTURE, BLOOD CULTURE 08/04/2024 Travel 08/02/2024 8:48 PM CDT - 08/03/2024 3:51 AM CDT Emergency [facility] Emergency Department [address] [place] [phone] Dung Bui MD Shortness of breath (Primary Dx); Bilateral arm pain Discharge Disposition: Home or Self Care 08/02/2024 Travel 07/29/2024 Telephone [place] [id number] [place] [address] Veronika Yusuf, RN Anticoagulation 07/28/2024 3:26 PM CDT - 07/31/2024 11:57 AM CDT Hospital Encounter [address] Medical Surgical [address] [place] [address] Aki Briceno, Efraín Keys, Jennifer Tamez MD Pneumonia of left lower lobe due to infectious organism Discharge Disposition: Home or Self Care 07/28/2024 Travel 07/22/[address] [address] Veronika Yusuf, RN Anticoagulation 07/21/2024 1:24 PM CDT - 07/25/2024 3:15 PM CDT Hospital Encounter [address] Medical Surgical [address] [place] [address] Abel Singletary MD Abbas, MD Bony Soto Hejab, MD COPD exacerbation ([facility]) Discharge Disposition: Home or Self Care 07/20/2024 6:10 PM CDT Anesthesia Event [facility] Operating Room [address] [place] [address] Aki Garcia MD 07/20/2024 5:10 PM CDT - 07/20/2024 6:14 PM CDT Surgery [facility] Operating Room [address] [place] [phone] Tereso Gil, DPM TOE(S) ARTHROPLASTY 07/20/2024 1:44 PM CDT - 07/20/2024 7:52 PM CDT Hospital Encounter [facility] 3J Pre-Op [address] [place] [address] Tereso Gil, DPM Hammertoe of left foot Discharge Disposition: Home or Self Care 07/19/2024 Telephone [facility] Podiatry-[place] Man[place] [address] [place] [address] Tereso Gil, DPM Information (PRE-OP INSTRUCTIONS AND ARRIVAL TIME) 07/19/2024 Telephone [facility] Podiatry-Fel[place] Pickett [place] [address] [place] [address] [place] [address] Tereso Gil, DPM Information (SX INFO INQUIRY) 07/18/2024 4:35 PM CDT - 07/19/2024 4:54 PM CDT Hospital Encounter [facility] 4A Cardiac [address] [place] [address] Danny Velasquez MD Sundaram, MD Yessica Meza Mohamed Hamdy Ahmed Mohamed, MD Acute respiratory distress Discharge Disposition: Home or Self Care 07/18/2024 Telephone [facility] Podiatry-[place] Pickett [place] [address] [address] Tereso Gil, DPM Information (RETURNING CALL TO PT) 07/14/2024 8:33 AM CDT - 07/16/2024 12:41 PM CDT Hospital Encounter [facility] 4C Medical [address] [place] [address] Abel Singletary MD Sohail, MD Margot Klein, MD Byron Feliz Jagdeep S, MD Cellulitis of right lower extremity Discharge Disposition: Home or Self Care 07/14/2024 Telephone [facility] Podiatry-[place] [place] [place] [address] [place] [address] [place] [address] Tereso Gil, DPM Information (NOTIFY PT OF SX DATE CHANGE) 07/14/2024 Telephone [facility] [place] [address] [place] [address] Tereso Gil, DPM Information (RESCHED SX/ PRE-OP INSTRUCTIONS AND ARRIVAL TIME) 07/14/2024 Travel 07/13/2024 [facility] [place] [address] [place] [address] Tereso Gil, DPM Information (TO RESCHED SX) from Last 3 Months Immunizations Immunization Administration [...] PNEUM OCOCCAL CONJUGATE VACCINE 20-VALENT (PCV20), POLYSACCHARIDE [id number] CONJUGATE, ADJUVANT 0.5 ML (PF) IM 06/05/2023,12/02/2022,12/25/2021 [...] on file Legal Sex Female 11:49 PM 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 [address] [place] [address] Tresa Stockton, MEDICAL DEVICE [address] [place] [address] Health Maintenance Due Date Last [...] Anguiano LPN Medical Devices Implanted Type Area Fashion Artist Device Identifier Shelf Expiration Date Model / Serial / Lot Dev Closure Angioseal 6fr Vip [id number] - [id number] Implanted:Qty: 1 on 03/21/2024 by Kyler Helm MD at [facility] Closure Device Right: Groin [employer] SYS [id number] 10/25/2024 [id number] / / [id number] 93 Imp Toe Phalinx 10 Solid Angl Sml [id number] - [id number] Implanted:Qty: 1 on 07/20/2024 by Tereso Gil DPM at [facility] Toe Left: Foot [employer] 12/29/2031 [id number] / / [id number] Procedures Procedure Name Priority Date/Time Associated Diagnosis Comments TELEMETRY REPORT 10/12/2024 2:26 AM CDT GI PATHOGEN PCR PANEL Routine 10/11/2024 12:03 PM CDT OCCULT BLOOD GUAIAC DIAGNOSTIC Routine 10/11/2024 12:02 PM CDT POC GLUCOSE Routine 10/11/2024 11:32 AM CDT POC GLUCOSE Routine 10/11/2024 7:23 AM CDT COMPREHENSIVE METABOLIC PANEL Routine 10/11/2024 4:38 AM CDT CBC WITH DIFFERENTIAL Routine 10/11/2024 4:38 AM CDT MAGNESIUM LEVEL Routine 10/11/2024 4:38 AM CDT POC GLUCOSE Routine 10/10/2024 9:15 PM CDT XR ABDOMEN 1 VW Routine 10/10/2024 8:40 PM CDT POC GLUCOSE Routine 10/10/2024 5:13 PM CDT PROTIME-INR Stat 10/10/2024 4:04 PM CDT POC GLUCOSE Stat 10/10/2024 1:18 PM CDT RT ASSESS AND TREAT Stat 10/10/2024 12:35 PM CDT TROPONIN 2 HR, 5TH GEN Timed Study 6:37 AM CDT D-DIMER Stat 10/10/2024 5:07 AM CDT XR CHEST PA OR AP 1 VW Stat 4:30 AM CDT TROPONIN BASELINE, 5TH GEN Stat 10/10/2024 2:10 AM CDT BRAIN NATRIURETIC PEPTIDE, BNP OR PROBNP Stat 10/10/2024 2:10 AM CDT COMPREHENSIVE METABOLIC PANEL Stat 10/10/2024 2:10 AM CDT CBC WITH DIFFERENTIAL Stat 10/10/2024 2:10 AM CDT EKG 12-LEAD Stat 10/10/2024 12:57 AM CDT D-DIMER Stat 10/08/2024 8:52 PM CDT TROPONIN 2 HR, 5TH GEN Timed Study 8:52 PM CDT XR CHEST PA OR AP 1 VW Stat 6:22 PM CDT DIFFERENTIAL, MANUAL Stat 10/08/2024 5:38 PM CDT INFLUENZA A/B, RSV AND COVID-19 PCR PANEL Stat 10/08/2024 5:38 PM CDT INFLUENZA A/B, RSV AND COVID-19 PCR PANEL Stat 10/08/2024 5:38 PM CDT MAGNESIUM LEVEL Stat 10/08/2024 5:38 PM CDT BRAIN NATRIURETIC PEPTIDE, BNP OR PROBNP Stat 10/08/2024 5:38 PM CDT TROPONIN BASELINE, 5TH GEN Stat 10/08/2024 5:38 PM CDT COMPREHENSIVE METABOLIC PANEL Stat 10/08/2024 5:38 PM CDT CBC WITH DIFFERENTIAL Stat 10/08/2024 5:38 PM CDT EKG 12-LEAD Stat 10/08/2024 5:06 PM CDT TELEMETRY REPORT 10/05/2024 3:51 PM CDT POC GLUCOSE Routine 10/03/2024 11:23 AM CDT [...] 2 HR, 5TH GEN Timed Study 5 9:58 AM CDT RT ASSESS AND TREAT [...] TROPONIN 6 HR, 5TH GEN Timed Study 3:03 AM CDT TELEMETRY REPORT 08/30/2024 2:57 [...] TROPONIN 2 HR, 5TH GEN Timed Study 10:31 PM CDT XR CHEST PA OR [...] AIRWAY Routine 07/20/2024 6:2 0 PM CDT MI CORRECTION HAMMERTOE 07/20/2024 5:10 PM CDT Hammer [...] EKG 12-LEAD Stat 07/14/2024 7:24 AM CDT LIPID PANEL Routine 02/19/2024 5:29 AM CASE RESOLUTION SPECIALIST MICROALBUMIN/CREATININ E RATIO, RANDOM UR Routine 02/26/2023 3:01 PM CASE RESOLUTION SPECIALIST Type 2 diabetes mellitus without complication, without long-term current use of insulin ([facility]) Wellness examination CERV/VAG CYTO SCREEN PAP W/HPV Routine 01/06/2023 12:00 AM CDT Wellness examination MAMMO DIAGNOSTIC UNI RIGHT W OR WO CAD Routine 01/24/2011 10:03 AM CDT Lump or mass in breast from Last 3 Months or Most Recently Relevant to Health Maintenance Results * TELEMETRY REPORT (10/12/2024 2:26 AM CDT) Only the most recent of8 resultswithin the time period is included. us Provider Scanning ECG ORDERABLES Final Result * GI PATHOGEN PCR PANEL (10/11/2024 12:03 PM CDT) GI Pathogen PCR panel NOT DETECTED No nucleic acids detected. 10/11/2024 1:26 PM CDT [facility] Stool STOOL SPECIMEN / Unknown Collection / Unknown 10/11/2024 12:03 PM CDT 10/11/2024 12:05 PM CDT Narrative [facility] - 10/11/2024 1:26 PM CDT The Film [...] GENERAL ORDERABLES Final Result Performing Organization Address [facility] Co de Phone Number [facility] [id number] [address] [place] [address] * OCCULT BLOOD GUAIAC DIAGNOSTIC (10/11/2024 12:02 PM CDT) Pathologist [facility] OCCULT BLOOD, STOOL Negative Negative 10/11/2024 12:11 PM CDT [facility] Stool STOOL SPECIMEN / Unknown Collection / Unknown 10/11/2024 12:02 PM CDT 10/11/2024 12:03 PM CDT Kapil Deluna DO BODY FLUIDS AND STOOLS Final Result Performing Organization Address [facility] Co de Phone Number [facility] CLIA # [id number] [address] [place] [address] * (ABNORMAL) POC GLUCOSE (10/11/2024 11:32 AM CDT) Only the most recent of103 resultswithin the time period is included. GLUCOSE POC 137(H) 74 - 99 mg/dL 10/11/2024 11:32 AM CDT [facility] SPECIMEN SOURCE, GLUCOSE POC Capillary 10/11/2024 11:32 AM CDT [facility] Blood, whole 10/11/2024 11:3 2 AM CDT 10/11/2024 11:53 AM CDT Jasper Fairchild MD POINT OF CARE TESTING Fin al Result [facility] CLIA # [id number] [address] [address] [place] [address] * (ABNORMAL) CBC WITH DIFFERENTIAL (10/11/2024 4:38 AM CDT) Only the most recent of32 resultswithin the time period is included. Pathologist [facility] WBC 8.4 4.8 - 10.8 K/uL 10/11/2024 4:59 AM CDT [facility] NRBCS 1(H) <1 % 10/11/2024 4:59 AM CDT [facility] RBC 3.99(L) 4.20 - 5.40 M/uL 10/11/2024 4:59 AM CDT [facility] HEMOGLOBIN 12.0 12.0 - 16.0 g/dL 10/11/2024 4:59 AM CDT [facility] HEMATOCRIT 39.1 36.0 - 46.0 % 10/11/2024 4:59 AM CDT [facility] MCV 98.0 84.0 - 103.0 fL 10/11/2024 4:59 AM CDT [facility] MCH 30.1 27.0 - 34.0 pg 10/11/2024 4:59 AM CDT [facility] MCHC 30.7 30.0 - 35.0 g/dL 10/11/2024 4:59 AM CDT [facility] PLATELETS 158 140 - 440 K/uL 10/11/2024 4:59 AM CDT [facility] MPV 11.8 8.9 - 12.8 fL 10/11/2024 4:59 AM CDT [facility] RDW 18.6(H) 11.0 - 14.5 % 10/11/2024 4:59 AM CDT [facility] RDW-STDEV 66.0(H) 37.0 - 54.0 fL 10/11/2024 4:59 AM CDT [facility] NEUTROPHILS 58 42 - 75 % 10/11/2024 4:59 AM CDT [facility] LYMPHOCYTES 24 24 - 44 % 10/11/2024 4:59 AM CDT [facility] MONOCYTES 15(H) 2 - 10 % 10/11/2024 4:59 AM CDT [facility] EOSINOPHILS 2 0 - 7 % 10/11/2024 4:59 AM CDT [facility] BASOPHILS 0 0 - 1 % 10/11/2024 4:59 AM CDT [facility] IMMATURE GRANULOCYTES 1 0 - 2 % 10/11/2024 4:59 AM CDT [facility] NEUTROPHIL ABSOLUTE 4.82 2.00 - 8.00 K/uL 10/11/2024 4:59 AM CDT [facility] LYMPHOCYTE ABSOLUTE 2.02 1.20 - 4.00 K/uL 10/11/2024 4:59 AM CDT [facility] MONOCYTE ABSOLUTE 1.28(H) 0.10 - 0.60 K/uL 10/11/2024 4:59 AM CDT [facility] EOSINOPHIL ABSOLUTE 0.15 0.00 - 0.70 K/uL 10/11/2024 4:59 AM CDT [facility] BASOPHILS ABSOLUTE 0.02 0.00 - 0.20 K/uL 10/11/2024 4:59 AM CDT [facility] IMMATURE GRANULOCYTES ABSOLUTE 0.08 0.00 - 0.10 K/uL 10/11/2024 4:59 AM CDT [facility] SMEAR REVIEWED: NA - Not Applicable 10/11/2024 4:59 AM T [facility] Blood Venipuncture / Unknown 10/11/2024 4:38 AM CDT 10/11/2024 4:52 AM CDT us Kapil Deluna DO HEMATOLOGY ORDERABLES F inal Result [facility] CLIA # [id number] [address] [facility] [place] [address] * MAGNESIUM LEVEL (10/11/2024 4:38 AM CDT) Only the most recent of7 resultswithin the time period is included. Pathologist [facility] MAGNESIUM 1.9 1.6 - 2.6 mg/dL 10/11/2024 5:27 AM CDT [facility] Blood Venipuncture / Unknown 10/11/2024 4:38 AM CDT 10/11/2024 4:52 AM CDT us Kapil Deluna DO CHEMISTRY ORDERABLES Fi nal Result [facility] CLIA # [id number] [id number] [place] [address] * (ABNORMAL) COMPREHENSIVE METABOLIC PANEL (10/11/2024 4:38 AM CDT) Only the most recent of21 resultswithin the time period is included. Pathologist [facility] SODIUM 139 136 - 145 mmol/L 10/11/2024 5:27 AM T [facility] POTASSIUM 3.5 3.5 - 5.1 mmol/L 10/11/2024 5:27 AM [facility] CHLORIDE 102 98 - 107 mmol/L 10/11/2024 5:27 AM T [facility] CO2 22 22 - 29 mmol/L 10/11/2024 5:27 AM T [facility] CALCIUM 9.2 8.6 - 10.0 mg/dL 10/11/2024 5:27 AM T [facility] BUN 21(H) 6 - 20 mg/dL 10/11/2024 5:27 AM [facility] CREATININE 0.56 0.51 - 0.95 mg/dL 10/11/2024 5:27 AM [facility] GLUCOSE 263(H) 74 - 99 mg/dL 10/11/2024 5:27 AM CDT [facility] TOTAL PROTEIN 6.4 6.4 - 8.3 g/dL 10/11/2024 5:27 AM T [facility] ALBUMIN 3.4(L) 3.5 - 5.2 g/dL 10/11/2024 5:27 AM T [facility] BILIRUBIN TOTAL 0.2 0.0 - 1.0 mg/dL 10/11/2024 5:27 AM T [facility] ALKALINE PHOSPHATASE 105(H) 35 - 104 U/L 10/11/2024 5:27 AM T [facility] AST 13 10 - 35 U/L 10/11/2024 5:27 AM T [facility] ALT 23 <=35 U/L 10/11/2024 5:27 AM T [facility] GFR >60 >=60 mL/min/1.7 3 sq meter 10/11/2024 5:27 AM T [facility] Comment:eGFR calculated with 2020 CKD-EPI equation. Vegetarian diet, extremely high or low muscle mass, and may affect results. Cystatin C with Glomerular Filtration Rate is a suitable alternative for these patients. ANION GAP 15 9 - 20 mmol/L 10/11/2024 5:27 AM T [facility] Blood Venipuncture / Unknown 10/11/2024 4:38 AM CDT 10/11/2024 4:52 AM CDT us Kapil Deluna DO CHEMISTRY ORDERABLES Fi nal Result [facility] CLIA # [id number] [address] [place] [address] * XR ABDOMEN 1 VW (10/10/2024 8:40 [...] nonobstructive. Stool burden greater than average. Kapil Deluna DO DIAGNOSTIC IMAGING ORDE NARCISO Final Result * (ABNORMAL) PROTIME-INR (10/10/2024 4:04 PM CDT) Only the most recent of29 resultswithin the time period is included. PROTIME 15.0(H) 12.7 - 14.9 Seconds 10/10/2024 4:54 PM CDT [facility] INR 1.1 0.8 - 1.2 10/10/2024 4:54 PM CDT [facility] Blood Venipuncture / Unknown 10/10/2024 4:04 PM CDT 10/10/2024 4:35 PM CDT Narrative [facility] - 10/10/2024 4:54 PM CDT Expected Values for INR: DVT/PE Goal INR 2.5; range 2.0 - 3.0 Valve Replacement Tissue Goal INR 2.5; range 2.0 - 3.0 Valve Replacement Mechanical Goal INR 3.0; range 2.5 - 3.5 POST-TN Goal INR 2.5; range 2.0 - 3.0 or Goal INR 3.0; range 2.5 - 3.5 Atrial Fibrillation Goal INR 2.5; range 2.0 - 3.0 Ischemic Stroke Goal INR 2.5; range 2.0 - 3.0 us Kapil Deluna DO HEMATOLOGY ORDERABLES F inal Result Performing Organization Address [facility]/ZIP Co de Phone Number [facility] [employer] [facility] CLIA # [id number] [id number] [place], [place] [id number] * (ABNORMAL) TROPONIN 2 HR, 5TH GEN (10/10/2024 6:37 AM CDT) Only the most recent of14 resultswithin the time period is included. TROPONIN T, 2 HR 5TH GEN 17(H) <=10 ng/L 10/10/2024 7:12 AM CDT [facility] [employer] [facility] DELTA 2HR TROPONIN T -7 See Interp. 10/10/2024 7:12 AM CDT [facility] [employer] [facility] Blood Venipuncture / Unknown 10/10/2024 6:37 AM CDT 10/10/2024 6:39 AM CDT [facility] [employer] [facility] - 10/10/2024 7:12 AM CDT Troponin elevated. Delta indeterminate. us Anita López MD CHEMISTRY ORDERABLES Final Res ult Performing Organization Address [facility] Co de Phone Number [facility] [employer] [facility] CLIA # [id number] [address] [address] [address] [place], [place] [id number] * D-DIMER (10/10/2024 5:07 AM CDT) Only the most recent of4 resultswithin the time period is included. D-DIMER QUANT 0.34 0.00 - 0.50 ug/mL FEU 10/10/2024 5:26 AM CDT [facility] [employer] [facility] Blood Venipuncture / Unknown 10/10/2024 5:07 AM CDT 10/10/2024 5:12 AM CDT [employer] [facility] [employer] [facility] - 10/10/2024 5:26 AM CDT D-Dimer assay [...] FEU 71-80 years: 0.71-0.80 ug/mL FEU us Anita López MD HEMATOLOGY ORDERABLES Final Re sult [facility] CLIA # [id number] [address] [place] [address] * XR CHEST PA OR AP 1 VW (10/10/2024 4:30 AM CDT) Only the most recent of18 resultswithin [...] lung expansion. No pneumothorax or pleural effusion. us Anita López MD DIAGNOSTIC IMAGING ORDERABLES Final Result * (ABNORMAL) TROPONIN BASELINE, 5TH GEN (10/10/2024 2:10 AM CDT) Only the most recent of15 resultswithin the time period is included. TROPONIN T, BASELINE 5TH GEN 24(H) <=10 ng/L 10/10/2024 5:03 AM CDT [facility] [employer] [facility] Blood Venipuncture / Unknown 10/10/2024 2:10 AM CDT 10/10/2024 2:21 AM CDT Narrative [facility] [employer] [facility] - 10/10/2024 5:03 AM CDT Troponin elevated. Anita López MD CHEMISTRY ORDERABLES Final Res ult [facility] CLIA # [id number] formerly [facility] [address] * (ABNORMAL) BRAIN NATRIURETIC PEPTIDE, BNP OR PROBNP (10/10/2024 2:10 AM CDT) Only the most recent of12 resultswithin the time period is included. PROBNP, N TERMINAL 349(H) 0 - 125 pg/mL 10/10/2024 5:03 AM CDT [facility] [employer] [facility] Comment: INTERPRETIVE COMMENT based on [...] López MD CHEMISTRY ORDERABLES Final Res ult [facility] CLIA # [id number] [address] [place] [address] * EKG 12-LEAD (10/10/2024 12:57 AM CDT) Only the most recent of21 resultswithin the time period is included. 10/10/2024 12:5 7 AM CDT Narrative INTERFACE SYSTEM - 10/10/2024 6:48 AM CDT [address] [address] Test Date: 2024-10-10 Pat Name: LE DIAZ Department: 11 Room: Gender: Female Resident Care Manager Rn: [id number] : 1965 Requested By: Order Number: [id number] Reading MD: Echo Tapia Measurements Intervals Bigler Rate: 83 P: -8 MI: 144 QRS: 69 QRSD: 82 T: 45 QT: 364 QTc: 427 Interpretive Statements Sinus rhythm with occasional premature ventricular complexes and premature atrial complexes Nonspecific T wave abnormality Abnormal ECG Electronically Signed On 10-10-2024 6:48:22 CDT by Echo Tapia Procedure Note Provider, Historical - 10/10/[address] [address] Test Date: 2024-10-10 Pat Name: LE DIAZ Department: 11 Room: Gender: Female Resident Care Manager Rn: [id number] : 1965 Requested By: Order Number: [id number] Reading : Echo Tapia Measurements Intervals Bigler Rate: 83 P: -8 MI: 144 QRS: 69 QRSD: 82 T: 45 QT: 364 QTc: 427 Interpretive Statements Sinus rhythm with occasional premature ventricular complexes and premature atrial complexes Nonspecific T wave abnormality Abnormal ECG Electronically Signed On 10-10-2024 6:48:22 CDT by Echo Tapia Anita López MD ECG ORDERABLES Final Result Performing Organization Address City/[facility] Co de Phone Number INTERFACE SYSTEM Refer to clinic/hospital department * INFLUENZA A/B, RSV AND COVID-19 PCR PANEL (10/08/2024 5:38 PM CDT) Only the most recent of4 resultswithin the time period is included. Pathologist [facility] COVID-19 PCR NOT DETECTED Not Detected 10/09/19 6:38 PM CDT [facility] Influenza A by PCR NOT DETECTED Not Detected 10/08/2024 6:38 PM CDT [facility] Influenza B by PCR NOT DETECTED Not Detected 10/08/2024 6:38 PM CDT [facility] RSV by PCR NOT DETECTED Not Detected 10/08/2024 6:38 PM CDT [facility] Upper Respiratory ENTIRE NASOPHARYNX / Unknown Collection / Unknown 10/08/2024 5:38 PM CDT 10/08/2024 5:49 PM CDT Narrative [facility] - 10/08/2024 6:38 PM CDT This test [...] rule out infection with the 2019-Novel Coronavirus. us Nat Baez PA-C MICROBIOLOGY - GENERAL ORDER JANAY Final Result Performing Organization Address City/[facility]/ZIP Co de Phone Number [facility] CLIA # [id number] [address] [facility] [place] [address] * MANUAL DIFFERENTIAL (10/08/2024 5:38 PM CDT) Only the most recent of3 resultswithin the time period is included. [facility] PLATELET EST. Adequate 10/08/2024 6:23 PM CDT [facility] ANISOCYTOSIS 1+ /hpf 10/08/2024 6:23 PM CDT [facility] POLYCHROMASIA 1+ /hpf 10/08/2024 6:23 PM CDT [facility] COTTON-JOLLY BODIES Present /hpf 10/08/2024 6:23 PM CDT [facility] Blood Venipuncture / Unknown 10/08/2024 5:38 PM CDT 10/08/2024 5:49 PM CDT us Nat Baez PA-C HEMATOLOGY ORDERABLES COM Fi nal Result Performing Organization Address [facility]/ZIP Co de Phone Number [facility] CLIA # [id number] [address] [place] [address] [place] [address] * UNFRACTIONATED HEPARIN MONITORING (10/03/2024 9:29 AM CDT) Only the most recent of8 resultswithin the time period is included. [facility] ANTI-XA UNFRAC HEP 0.58 See Interpretation IU/mL 10/03/2024 10:39 AM CDT [facility] Blood Venipuncture / Unknown 10/03/2024 9:29 AM CDT 10/03/2024 10:20 AM CDT Narrative [facility] - 10/03/2024 10:39 AM CDT Therapeutic Range: PT/DVT Heparin Protocol 0.3 - 0.7 IU/ml Cardiac Heparin Protocol 0.3 - 0.6 IU/ml The reference range for this test is specific to the anticoagulant and is not appropriate for monitoring patients on a DOAC protocol. us Sasha Juan MD HEMATOLOGY O RDERABLES Final Result [facility] # [id number] [address] [facility] [place] [address] * PET HEART PERF R&S W CT [...] No prior study available for direct comparison. HowieJunior MD Narrative INTERFACE SYSTEM - 10/03/2024 10:02 [...] Howie MD Patel us Dane Hopkins MD PE ORDERABLES Final Resu [...] available for direct comparison. Howie MD Patel Dane Hopkins MD NM ORDERABLES Final Resu lt Performing Organization Address City/[facility] Co de Phone Number INTERFACE SYSTEM Refer to clinic/hospital department * (ABNORMAL) TROPONIN (10/02/2024 8:18 AM CDT) TROPONIN T, 5TH GEN 28(H) <=10 ng/L 10/02/2024 9:06 AM CDT [facility] [employer] [facility] Blood Venipuncture / Unknown 10/02/2024 8:18 AM CDT 10/02/2024 8:30 AM CDT Narrative [facility] - 10/02/2024 9:06 AM CDT Troponin elevated. Dane Hopkins MD CHEMISTRY ORDERABLES Final Result Performing Organization Address [facility] Co de Phone Number [facility] [employer] [facility] CLIA # [id number] [address] [place] [address] * (ABNORMAL) BASIC METABOLIC PANEL (10/02/2024 2:34 AM CDT) Only the most recent of16 resultswithin the time period is included. SODIUM 141 136 - 145 mmol/L 10/02/2024 3:08 AM T [facility] POTASSIUM 3.9 3.5 - 5.1 mmol/L 10/02/2024 3:08 AM [facility] Comment:Slightly hemolyzed. Result may be falsely elevated. CHLORIDE 107 98 - 107 mmol/L 10/02/2024 3:08 AM [facility] CO2 23 22 - 29 mmol/L 10/02/2024 3:08 AM [facility] CALCIUM 9.2 8.6 - 10.0 mg/dL 10/02/2024 3:08 AM [facility] BUN 19 6 - 20 mg/dL 10/02/2024 3:08 AM [facility] CREATININE 0.62 0.51 - 0.95 mg/dL 10/02/2024 3:08 AM [facility] GLUCOSE 238(H) 74 - 99 mg/dL 10/02/2024 3:08 AM [facility] GFR >60 >=60 mL/min/1.7 3 sq meter 10/02/2024 3:08 AM [facility] Comment:eGFR calculated with 2020 CKD-EPI equation. Vegetarian diet, extremely high or low muscle mass, and may affect results. Cystatin C with Glomerular Filtration Rate is a suitable alternative for these patients. ANION GAP 11 9 - 20 mmol/L 10/02/2024 3:08 AM [facility] Blood Venipuncture / Unknown 10/02/2024 2:34 AM CDT 10/02/2024 2:39 AM CDT us Stefanie Ferrara MD CHEMISTRY ORDERABLES Final Resul t [facility] CLIA # [id number] [address] [facility] [place] [address] * (ABNORMAL) PTT (10/01/2024 3:57 PM CDT) Only the most recent of3 resultswithin the time period is included. PTT 24.6(L) 24.8 - 37.2 seconds 10/01/2024 4:20 PM CDT [facility] Blood Venipuncture / Unknown 10/01/2024 3:57 PM CDT 10/01/2024 4:07 PM CDT Narrative [facility] - 10/01/2024 4:20 PM CDT Therapeutic Range: Hi-level PE/DVT heparin protocol 80.1 - 95.0 sec Lo-level PE/DVT heparin protocol 70.1 - 85.0 sec Cardiac Heparin Protocol 70.1 - 100.0 sec us Stefanie Ferrara MD HEMATOLOGY ORDERABLES Final Resu lt [facility] CLIA # [id number] [address] [address] [place] [address] * (ABNORMAL) LACTIC ACID (09/15/2024 8:00 AM CDT) Only the most recent of21 resultswithin the time period is included. LACTIC ACID 2.2(H) <=2.0 mmol/L 09/15/2024 8:42 AM CDT [facility] Blood Venipuncture / Unknown 09/15/2024 8:00 AM CDT 09/15/2024 8:03 AM CDT us Michael Tovar MD CHEMISTRY ORDERABLES Final Result Performing Organization Address City/[facility]/ZIP Co de Phone Number [facility] CLIA # [id number] [address] [facility] [place] [address] * (ABNORMAL) BLOOD GAS ARTERIAL (09/13/2024 8:22 PM [facility]) Only the most recent of4 resultswithin the time period is included. [facility] PH BLOOD POC 7.40 7.35 - 7.45 09/13/2024 8:22 PM [facility] PCO2 POC 54(H) 35 - 45 mm Hg 09/13/2024 8:22 PM [facility] PO2 POC 44(L) 80 - 105 mm Hg 09/13/2024 8:22 PM [facility] HCO3 (CALC) POC 33(H) 22 - 26 mmol/L 09/13/2024 8:22 PM [facility] HEMOGLOBIN POC 10.8(L) 12.0 - 18.0 g/dL 09/13/2024 8:22 PM [facility] BASE EXCESS POC 9(H) -2 - 3 mmol/L 09/13/2024 8:22 PM [facility] O2 SATURATION POC 78(L) 95 - 98 % 09/13/2024 8:22 PM [facility] SODIUM POC 136(L) 138 - 146 mmol/L 09/13/2024 8:22 PM [facility] POTASSIUM POC 4.2 3.5 - 4.9 mmol/L 09/13/2024 8:22 PM [facility] HEMATOCRIT POC 32(L) 38 - 51 % 09/13/2024 8:22 PM [facility] PH TEMP CORRECT 7.40 7.35 - 7.45 09/13/2024 8:22 PM [facility] PCO2 TEMP CORRECT 54(H) 35 - 45 mm Hg 09/13/2024 8:22 PM [facility] PO2 TEMP CORRECT 44(L) 80 - 105 mm Hg 09/13/2024 8:22 PM [facility] SPECIMEN SOURCE, GASES POC Arterial 09/13/2024 8:22 PM [facility] CALCIUM IONIZED POC 5.1 4.8 - 5.2 mg/dL 09/13/2024 8:22 PM CDT [facility] TCO2 (CALC) POC 35(H) 23 - 27 mmol/L 09/13/2024 8:22 PM CDT [facility] LITER FLOW 3.0 L/min 09/13/2024 8:22 PM CDT [facility] PUNC SITE POC ART PUNCT 09/13/2024 8:22 PM CDT [facility] SOURCE OF OXYGEN POC Cannula 09/13/2024 8:22 PM CDT [facility] Blood, arterial 09/13/2024 8 :22 PM CDT 09/13/2024 8:24 PM CDT Peña Mata MD ABG ORDERABLES Final Re sult [facility] CLIA # [id number] [address] [place] [address] * XR THORACOLUMBAR SPINE 2 VW (09/13/2024 [...] [facility] LACTIC ACID POC 3.2(H) <=2.0 mmol/L 09/13/2024 2:52 PM CDT [facility] SPECIMEN SOURCE, GASES POC Arterial 09/13/2024 2:52 PM CDT [facility] SITE POC ART PUNCT 09/13/2024 2:52 PM CDT [facility] Blood 09/13/2024 2:52 PM CDT 09/13/2024 2:55 PM CDT Narrative [facility] - 09/13/2024 2:52 PM CDT References ranges displayed are for Arterial samples. Peña Mata MD POINT OF CARE TESTING Fi nal Result [facility] CLIA # [id number] formerly [facility] [address] [place] [address] * BLOOD CULTURE (09/13/2024 2:15 PM CDT) Only the most recent of12 resultswithin the time period is included. [facility] BLOOD CULTURE No growth 09/18/2024 3:31 PM CDT [facility] Blood (Peripheral) Venipuncture / Unknown 09/13/2024 2:15 PM CDT 09/13/2024 2:38 PM CDT Peña Mata MD MICROBIOLOGY - GENERAL O RDERABLES Final Result [facility] # [id number] [address] [address] [place] [address] * US ABDOMEN LIMITED (09/13/2024 1:27 PM [...] Mata MD URINE ORDERABLES Final R esult [facility] [employer] [facility] CLIA # [id number] [address] [place] [id number] * (ABNORMAL) URINALYSIS WITH REFLEX MICROSCOPIC (09/13/2024 1:12 PM CDT) Only the most recent of5 resultswithin the time period is included. COLOR UA Colorless(A ) Pale to Dark Yellow 09/13/2024 1:29 PM CDT [facility] [employer] [facility] CLARITY UA Clear Clear 09/13/2024 1:29 PM CDT [facility] SPECIFIC GRAVITY UA 1.012 1.003 - 1.035 09/13/2024 1:29 PM T [facility] PH UA 5.5 5.0 - 8.0 09/13/2024 1:29 PM [facility] LEUKOCYTE ESTERASE UA 2+(A) Negative 09/13/2024 1:29 PM T [facility] NITRITE UA Negative Negative 09/13/2024 1:29 PM T [facility] PROTEIN UA Negative Negative 09/13/2024 1:29 PM [facility] GLUCOSE UA 2+(A) Negative 09/13/2024 1:29 PM [facility] KETONES UA Negative Negative 09/13/2024 1:29 PM [facility] UROBILINOGEN UA <2.0 <2.0 mg/dL 1:29 PM [facility] BILIRUBIN UA Negative Negative 09/13/2024 1:29 PM [facility] BLOOD UA Negative Negative 09/13/2024 1:29 PM [facility] WBC UA 0-2 0 - 2 /hpf 09/13/2024 1:29 PM [facility] RBC UA 0-2 0 - 2 /hpf 09/13/2024 1:29 PM [facility] BACTERIA UA 2+(A) Negative /hpf 09/13/2024 1:29 PM [facility] EPITHELIAL CELLS, URINE 0-5 0 - 5 /hpf 09/13/2024 1:29 PM [facility] HYALINE CAST 0-2 None Seen, 0-2 /lpf 09/13/2024 1:29 PM [facility] Urine URINE SPECIMEN OBTAINED BY CLEAN CATCH PROCEDURE / Unknown Collection / Unknown 09/13/2024 1:12 PM CDT 09/13/2024 1:20 PM CDT Peña Mata MD URINE ORDERABLES Final R esult Performing Organization Address City/[facility]/ZIP Co de Phone Number [facility] CLIA # [id number] formerly [facility] [address] * URINE CULTURE (09/13/2024 1:12 PM CDT) Pathologist [facility] CULTURE Polymicrobial growth consistent with normal urethral kota and/or colonizing bacteria 09/14/2024 11:22 AM CDT [facility] Urine URINE SPECIMEN OBTAINED BY CLEAN CATCH PROCEDURE / Unknown Collection / Unknown 09/13/2024 1:12 PM CDT 09/13/2024 1:20 PM CDT Peña Mata MD MICROBIOLOGY - GENERAL O RDERABLES Final Result Performing Organization Address [facility]/ZIP Co de Phone Number [facility] CLIA # [id number] [facility] [address] [address] * (ABNORMAL) BLOOD GAS VENOUS (09/13/2024 11:47 AM CDT) Only the most recent of6 resultswithin the time period is included. Pathologist [facility] PH BLOOD POC 7.31(L) 7.32 - 7.43 09/13/2024 11:47 AM CDT [facility] PCO2 POC 64(H) 38 - 50 mm Hg 09/13/2024 11:47 AM CDT [facility] PO2 POC 66(H) 25 - 40 mm Hg 09/13/2024 11:47 AM CDT [facility] HCO3 (CALC) POC 32(H) 22 - 29 mmol/L 09/13/2024 11:47 AM CDT [facility] HEMOGLOBIN POC 10.7(L) 12.0 - 18.0 g/dL 09/13/2024 11:47 AM CDT [facility] BASE EXCESS POC 6(H) -2 - 3 mmol/L 09/13/2024 11:47 AM T [facility] O2 SATURATION POC 94(H) 40 - 70 % 09/13/2024 11:47 AM [facility] SODIUM POC 136 135 - 145 mmol/L 09/13/2024 11:47 AM [facility] POTASSIUM POC 4.3 3.5 - 4.9 mmol/L 09/13/2024 11:47 AM T [facility] HEMATOCRIT POC 32(L) 38 - 51 % 09/13/2024 11:47 AM [facility] PH TEMP CORRECT 7.31(L) 7.32 - 7.43 09/13/2024 11:47 AM [facility] PCO2 TEMP CORRECT 64(H) 38 - 50 mm Hg 09/13/2024 11:47 AM [facility] PO2 TEMP CORRECT 66(H) 25 - 40 mm Hg 09/13/2024 11:47 AM [facility] SPECIMEN SOURCE, GASES POC Venous 09/13/2024 11:47 AM [facility] CALCIUM IONIZED POC 5.3(H) 4.8 - 5.2 mg/dL 09/13/2024 11:47 AM [facility] TCO2 (CALC) POC 34(H) 22 - 26 mmol/L 09/13/2024 11:47 AM [facility] SITE POC No Charge 09/13/2024 11:47 AM [facility] Blood, venous 09/13/2024 11: 47 AM CDT 09/13/2024 11:49 AM CDT us Peña Margot Mata MD ABG ORDERABLES Final Re sult [facility] CLIA # [id number] [address] [place] [address] [place] [address] * (ABNORMAL) TROPONIN 6 HR, 5TH GEN (09/13/2024 9:16 AM CDT) Only the most recent of8 resultswithin the time period is included. [facility] TROPONIN T, 6 HR 5TH GEN 29(H) <11 ng/L 09/13/2024 9:55 AM CDT [facility] DELTA 6HR TROPONIN T 1 See Interp. 09/13/2024 9:55 AM CDT [facility] Blood Venipuncture / Unknown 09/13/2024 9:16 AM CDT 09/13/2024 9:24 AM CDT [facility] - 09/13/2024 9:55 AM CDT Troponin elevated. Delta indeterminate. us Robbie Yen DO CHEMISTRY ORDERABLES F inal Result [facility] # [id number] formerly [facility] [address] [place] [address] * RESPIRATORY PATHOGEN PCR PANEL (09/12/2024 11:02 PM CDT) Only the most recent of6 resultswithin the time period is included. [facility] Respiratory Pathogen PCR Panel NOT DETECTED No respiratory pathogen nucleic acids detected. 09/13/2024 12:31 AM CDT [facility] COVID-19 PCR NOT DETECTED Not Detected 09/13/2024 12:31 AM CDT [facility] Upper Respiratory ENTIRE NASOPHARYNX / Unknown Collection / Unknown 09/12/2024 11:02 PM CDT 09/12/2024 11:08 PM CDT [facility] - 09/13/2024 12:31 AM CDT [...] GENERAL ORDERABLES Final Result Performing Organization Address [facility] de Phone Number [facility] [employer] [facility] CLIA # [id number] [address] [address] * EXTRA TUBE (BLUE) (09/12/2024 9:32 PM CDT) Only the most recent of3 resultswithin the time period is included. Blood Venipuncture / Unknown 09/12/2024 9:32 PM CDT 09/12/2024 10:59 PM CDT External Provider [facility] HEMATOLOGY ORDERABLES Jana l Result Performing Organization Address [facility] Co de Phone Number [facility] [employer] [facility] CLIA # [id number] [address] [address] * Critical Care (09/12/2024 9:09 PM CDT) [...] PROCEDURE/MINOR SURGIC AL ORDERABLES Final Result * XR CHEST PA AND LATERAL 2 [...] 0.12(H) <=0.08 ng/mL 08/30/2024 6:32 AM CDT [facility] Blood Venipuncture / Unknown 08/30/2024 5:27 AM CDT 08/30/2024 5:41 AM CDT Narrative [facility] [employer] [facility] - 08/30/2024 6:32 AM CDT [...] Ferrara MD CHEMISTRY ORDERABLES Final Resul t [facility] [employer] [facility] CLIA # [id number] formerly [facility] [address] * CT ABDOMEN PELVIS W CONTRAST (08/29/2024 [...] - 60 U/L 08/29/2024 8:54 PM CDT [facility] [employer] [facility] Blood Venipuncture / Unknown 08/29/2024 8:09 PM CDT 08/29/2024 8:18 PM CDT Danitza Wayne MD CHEMISTRY ORDERABL ES Final Result [facility] [employer] [facility] CLIA # [id number] formerly [facility] [address] [place] [address] * CT CHEST WO CONTRAST (08/18/2024 11:42 [...] Tovar MD CT ORDERABLES Final Result * VITAMIN B12 AND FOLATE (08/16/2024 4:59 AM CDT) Only the most recent of2 resultswithin the time period is included. VITAMIN B12 374 211 - 946 pg/mL 08/16/2024 6:23 AM CDT [facility] FOLATE, SERUM 14.5 3.1 - 17.5 ng/mL 08/16/2024 6:23 AM CDT [facility] Blood Venipuncture / Unknown 08/16/2024 4:59 AM CDT 08/16/2024 5:05 AM CDT us Nayely Mena MD CHEMISTRY ORDERABLES Final Resul t [facility] CLIA # [id number] [address] [address] [place] [address] * CT HUMERUS WO CONTRAST LEFT (08/15/2024 [...] - 4.20 uIU/mL 08/14/2024 8:09 PM CDT [facility] [employer] [facility] Blood Venipuncture / Unknown 08/14/2024 7:05 PM CDT 08/14/2024 7:14 PM CDT Aki Booth DO CHEMISTRY ORDERABLES Fi nal Result [facility] CLIA # [id number] [address] [place] [address] * XR HUMERUS 2+ VW LEFT (08/14/2024 [...] likely present. Aki Booth DO DIAGNOSTIC IMAGING [place] STUART Final Result * (ABNORMAL) DRUG SCREEN, URINE (08/04/2024 11:44 AM CDT) [facility] AMPHETAMINE QUAL, URINE Negative Negative 08/04/2024 12:30 PM T [facility] BARBITURATE QUAL, URINE Negative Negative 08/04/2024 12:30 PM T [facility] BENZODIAZEPINE QUAL, URINE Negative Negative 08/04/2024 12:30 PM T [facility] COCAINE QUAL URINE Negative Negative 08/04/2024 12:30 PM CDT [facility] OPIATE QUAL, URINE Negative Negative 08/04/2024 12:30 PM [facility] CANNABINOIDS QUAL, URINE Negative Negative 08/04/2024 12:30 PM [facility] OXYCODONE QUAL, URINE Presumptive Positive(A) Negative 08/04/2024 12:30 PM [facility] METHADONE QUAL, URINE Negative Negative 08/04/2024 12:30 PM T [facility] FENTANYL QUAL, URINE Negative Negative 08/04/2024 12:30 PM T [facility] CREATININE, URINE 11.9(L) 29.0 - 226.0 mg/dL 08/04/2024 12:30 PM [facility] Comment:Reference Range vari es with fluid intake and diet. Urine URINE SPECIMEN OBTAINED BY CLEAN CATCH PROCEDURE / Unknown Collection / Unknown 08/04/2024 11:44 AM CDT 08/04/2024 11:51 AM CDT [facility] LABORATORY [facility] - 08/04/2024 12:30 PM CDT [...] Mclean MD URINE ORDERABLES Final Result [facility] CLIA # [id number] [address] [place] [id number] * (ABNORMAL) CBC WITHOUT DIFFERENTIAL (08/04/2024 9:09 AM CDT) Only the most recent of4 resultswithin the time period is included. WBC 9.5 4.8 - 10.8 K/uL 08/04/2024 9:24 AM CDT [facility] NRBCS 1(H) <1 % 08/04/2024 9:24 AM CDT [facility] RBC 4.14(L) 4.20 - 5.40 M/uL 08/04/2024 9:24 AM CDT [facility] HEMOGLOBIN 13.2 12.0 - 16.0 g/dL 08/04/2024 9:24 AM CDT [facility] HEMATOCRIT 41.7 36.0 - 46.0 % 08/04/2024 9:24 AM CDT [facility] MCV 100.7 84.0 - 103.0 fL 08/04/2024 9:24 AM CDT [facility] MCH 31.9 27.0 - 34.0 pg 08/04/2024 9:24 AM CDT [facility] MCHC 31.7 30.0 - 35.0 g/dL 08/04/2024 9:24 AM CDT [facility] PLATELETS 178 140 - 440 K/uL 08/04/2024 9:24 AM CDT [facility] MPV 10.0 8.9 - 12.8 fL 08/04/2024 9:24 AM CDT [facility] RDW 18.4(H) 11.0 - 14.5 % 08/04/2024 9:24 AM CDT [facility] RDW-STDEV 68.4(H) 37.0 - 54.0 fL 08/04/2024 9:24 AM CDT [facility] Blood Venipuncture / Unknown 08/04/2024 9:09 AM CDT 08/04/2024 9:17 AM CDT us Lenin Amezquita MD HEMATOLOGY ORDERABLES Final Resu lt Performing Organization Address City/State/[facility] Co de Phone Number [facility] CLIA # [id number] [address] [place] [address] * HCG QUANTITATIVE, BLOOD (08/04/2024 4:11 AM CDT) HCG QUANT, BLOOD 0.1 0.0 - 1.0 mIU/mL 08/04/2024 5:12 AM CDT [facility] Comment: HCG Quantitative Reference Range Male <= [...] Mclean MD CHEMISTRY ORDERABLES Final Res ult [facility] LABORATORY SERVICES [facility] # [id number] [address] [place] [address] * CTA CHEST W AND/OR WO CONTRAST [...] 4.20 uIU/mL 08/02/2024 10:15 PM CDT [facility] Blood Venipuncture / Unknown 08/02/2024 9:23 PM CDT 08/02/2024 9:34 PM CDT us Tiffanie Childress CLINICAL PROJECT COORDINATOR CHEMISTRY ORDERABLES Final Res ult Performing Organization Address [facility] Co de Phone Number [facility] CLIA # [id number] [address] [address] * (ABNORMAL) VANCOMYCIN LEVEL TROUGH (07/30/2024 11:41 AM CDT) VANCOMYCIN, TROUGH 9.7(L) 10.0 - 17.0 ug/mL 07/30/2024 12:26 PM CDT [facility] Blood Venipuncture / Unknown 07/30/2024 11:41 AM CDT 07/30/2024 11:54 AM CDT us Jennifer Sanchez MD CHEMISTRY ORDERABLES Final Resu lt Performing Organization Address [facility] Phone Number [facility] CLIA # [id number] [address] [address] * PHOSPHORUS (07/29/2024 6:04 AM CDT) PHOSPHORUS 2.7 2.5 - 4.5 mg/dL 07/29/2024 6:50 AM CDT [facility] Blood Venipuncture / Unknown 07/29/2024 6:04 AM CDT 07/29/2024 6:08 AM CDT us Efraín Dey DO CHEMISTRY ORDERABLES Final R esult Performing Organization Address [facility] Co de Phone Number [facility] CLIA # [id number] [address] [address] [place] [address] * (ABNORMAL) HEMOGLOBIN A1C (07/28/2024 9:29 PM CDT) HEMOGLOBIN A1C 8.9(H) <=5.6 % 07/30/2024 8:43 AM CDT [facility] EST. AVG GLUCOSE, A1C 209 mg/dL 07/30/2024 8:43 AM CDT [facility] Blood Venipuncture / Unknown 07/28/2024 9:29 PM CDT 07/28/2024 9:50 PM CDT Narrative [facility] - 07/30/2024 8:43 AM CDT HGB A1C INTERPRETATION NORMAL: <5.7% PRE-DIABETES: 5.7 - 6.4% DIABETES: 6.5% OR GREATER us Efraín Dey DO CHEMISTRY ORDERABLES Final R esult Performing Organization Address [facility] de Phone Number [facility] CLIA # [id number] [address] [address] * EXTRA TUBE (SST/GOLD) (07/28/2024 3:47 PM CDT) Blood Venipuncture / Unknown 07/28/2024 3:47 PM CDT 07/28/2024 3:56 PM CDT us Aki Briceno DO CHEMISTRY ORDERABLES Final Re sult Performing Organization Address [facility] Co de Phone Number [facility] CLIA # [id number] [address] [address] [place] [address] * PNEUMONIA PATHOGEN PCR PANEL (07/23/2024 6:15 AM CDT) [facility] Pneumonia Pathogen PCR Panel NOT DETECTED No nucleic acids detected. 07/23/2024 1:18 PM CDT [facility] Sputum COUGHED SPUTUM SPECIMEN / Unknown Collection / Unknown 07/23/2024 6:15 AM CDT 07/23/2024 6:15 AM CDT Narrative [facility] - 07/23/2024 1:18 PM CDT NOTE: Per the program assistant, this current lot of reagent may be insensitive for the full detection of adenoviruses. If adenovirus is within the differential diagnosis, the specimen may be submitted to a reference laboratory for further testing. If desired, order [id number] Lab Test, stating Adenovirus by PCR testing in the ordering comment and notify the Microbiology lab at [phone]. A negative result does not exclude the [...] - GENERAL ORDERABLE S Final Result [facility] CLIA # [id number] [address] [place] [address] * SPUTUM CULTURE WITH GRAM STAIN (07/23/2024 6:15 AM CDT) CULTURE No pathogens isolated. Normal respiratory kota present. 07/25/2024 7:06 AM CDT [facility] GRAM STAIN Smear contains </=10 squamous epithelial cells per low power field 07/25/2024 7:06 AM CDT [facility] GRAM STAIN <25 PMN WBC/LPF 7:06 AM CDT [facility] GRAM STAIN Mixed kota with no predominate morphology 07/25/2024 7:06 AM CDT [facility] Sputum COUGHED SPUTUM SPECIMEN / Unknown Collection / Unknown 07/23/2024 6:15 AM CDT 07/23/2024 6:15 AM CDT Yasmeen Lovett MD MICROBIOLOGY - GENERAL ORDERABLE S Final Result Performing Organization Address City/State/[facility] Co de Phone Number [facility] CLIA # [id number] [facility] [address] * Critical Care (07/21/2024 1:16 PM CDT) [...] not difficult Staffing Performed: Anesthesiologist (/) and ENGRAVER HAND SOFT METALS/CAA Authorized by: Aki Garcia MD Performed by: [...] of an acute osseous abnormality. Tereso Gil DPM DIAGNOSTIC IMAGING ORDERABLES Fi nal Result * MRSA PCR RAPID SCREEN (07/14/2024 3:44 PM CDT) Pathologist [facility] MRSA PCR RESULT MRSA not detected MRSA not detected 07/14/2024 5:12 PM CDT [facility] LABORATORY SERVICES [facility] Surveillance ANTERIOR NARES SWAB / Unknown Collection / Unknown 07/14/2024 3:44 PM CDT 07/14/2024 3:53 PM CDT Narrative [facility] - 07/14/2024 5:12 PM [...] MICROBIOLOGY - GENERAL O RDERABLES Final Result [facility] # [id number] [id number] [place] [address] * XR TIBIA AND FIBULA 2 VW [...] AM CDT Narrative 07/15/2024 9:45 AM CDT [facility] Cardiovascular Services Noninvasive Vascular Laboratory [address] [place] [address] Noninvasive Vascular Lab Venous Exam Unilateral Lower Extremity Duplex Patient: Le Diaz Study ID: US VENOUS DOPPLE Gender: F : 1965 Age: 59 Room: Height: 165.1cm Weight: 95.3kg BSA: 2.13m^2 Pt status: Emergency Study Date: 07/14/2024 Study Time: 09:47:06 AM BSA: 2.13m^2 Ordering: Abel Singletary Interpreting:Prince Luana Cosmetic Sales Advisor: Kofi Leon Indications: Extremity Edema. Summary Impression: [...] Patent; Normal phasicity; spontaneous; compressible; normal augmentation [facility] Vascular Lab is accredited with the Intersocietal Commission for the Accreditation of Vascular Laboratories (ICAVL) Prepared and Electronically Authenticated Prince Luana Confirmed 07/15/2024 09:45 Procedure Note Prince Craft MD - 07/15/2024 [facility] Cardiovascular Services Noninvasive Vascular Laboratory [address] [place] [address] Noninvasive Vascular Lab Venous Exam Unilateral Lower Extremity Duplex Patient: Le Diaz Study ID: US VENOUS DOPPLE Gender: F : 1965 Age: 59 Room: Height: 165.1cm Weight: 95.3kg BSA: 2.13m^2 Pt status: Emergency Study Date: 07/14/2024 Study Time: 09:47:06 AM BSA: 2.13m^2 Ordering: Abel Singletary Interpreting:Prince Luana Cosmetic Sales Advisor: Kofi Leon Indications: Extremity Edema. Summary Impression: [...] femoral Patent; Normal phasicity; spontaneous;compressible; normal augmentation [facility] Vascular Lab is accredited with theIntersocietal Commission for the Accreditation of Vascular Laboratories (ICAVL) Prepared and Electronically Authenticated Prince Luana Confirmed 07/15/2024 09:45 us Abel Singletary MD ORDERABLES Final Result * (ABNORMAL) SEDIMENTATION RATE (07/14/2024 8:51 AM CDT) Pathologist [facility] ESR (SEDIMENTATION RATE) 52(H) 0 - 20 mm/Hr 07/14/2024 11:09 AM CDT [facility] Blood Venipuncture / Unknown 07/14/2024 8:51 AM CDT 07/14/2024 8:56 AM CDT Abel Singletary MD HEMATOLOGY ORDERABLES Final Re sult Performing Organization Address [facility] Co de Phone Number [facility] CLIA # [id number] [address] [address] * (ABNORMAL) C-REACTIVE PROTEIN (07/14/2024 8:51 AM CDT) CRP 43.4(H) 0.0 - 5.0 mg/L 07/14/2024 11:11 AM CDT [facility] Blood Venipuncture / Unknown 07/14/2024 8:51 AM CDT 07/14/2024 8:56 AM CDT Abel Singletary MD CHEMISTRY ORDERABLES Final Res ult Performing Organization Address [facility] Co de Phone Number [facility] CLIA # [id number] [address] [address] * (ABNORMAL) LIPID PANEL (02/19/2024 5:29 AM CASE RESOLUTION SPECIALIST) CHOLESTEROL 188 <200 mg/dL 02/19/2024 10:25 AM CASE RESOLUTION SPECIALIST [facility] TRIGLYCERIDE 104 <150 mg/dL 02/19/2024 10:25 AM CASE RESOLUTION SPECIALIST [facility] HDL 36(L) 40 - 59 mg/dL 02/19/2024 10:25 AM CASE RESOLUTION SPECIALIST [facility] LDL CALCULATED 131(H) <100 mg/dL 02/19/2024 10:25 AM CASE RESOLUTION SPECIALIST [facility] NON-HDL CHOLESTEROL 152(H) <130 mg/dL 02/19/2024 10:25 AM CASE RESOLUTION SPECIALIST [facility] Blood Venipuncture / Unknown 02/19/2024 5:29 AM CASE RESOLUTION SPECIALIST 02/19/2024 5:34 AM CASE RESOLUTION SPECIALIST Narrative [facility] - 02/19/2024 10:25 AM CASE RESOLUTION SPECIALIST TOTAL CHOLESTEROL mg/dL Desirable <200 Borderline high [...] MD CHEMISTRY ORDERABLES Final R esult [facility] CLIA # [id number] [address] [place] [address] * MICROALBUMIN/CREATININE RATIO, RANDOM UR (02/26/2023 3:01 PM CASE RESOLUTION SPECIALIST) Creatinine, Urine 199 20 - 275 mg/dL [...] category. FASTING:UNKNOWN FASTING: UNKNOWN Test Performed at: [facility] [address] [place] [address] Emily Dumont MD Urine URINE SPECIMEN OBTAINED BY CLEAN CATCH PROCEDURE / Unknown 02/26/2023 3:01 PM CASE RESOLUTION SPECIALIST 02/26/2023 3:02 PM CASE RESOLUTION SPECIALIST Ryann Burk MD URINE ORDERABLES Final Result [facility] [phone] [employer] [address] [place] [address] * CERV/VAG CYTO SCREEN PAP W/HPV (01/06/2023 12:00 AM CDT) CLINICAL INFORMATION [facility] Comment:None given LAST MENSTRUAL PERIOD [employer] Comment:NONE GIVEN PREV PAP: [employer] Comment:NONE GIVEN PREV BX: [employer] Comment:NONE GIVEN SOURCE [employer] Comment:ENDOCERVIX ADEQUACY: [employer] Comment: Satisfactory for evaluation. Endocervical/transformation zone component present. Age and/or menstrual status not provided PAP INTERP [employer] Comment: Cytology Results: Negative for intraepithelial lesion or malignancy. COMMENT (PAP TEST) [facility] [employer] [place] Comment: This Pap test has been evaluated with computer assisted technology. CNA PER DIEM: Irving est [facility] [place] Comment: DELANO SUH(ASCP) CT screening location: [place] [address] [place] [address] EXPLANATORY NOTE [facility] [employer] [place] Comment: EXPLANATORY NOTE: The Pap is a [...] information. HPV E6/E7 Not Detected Not Detected [employer] Comment: Methodology: Grocery Team Member-Mediated Amplification This assay detects E6/E7 viral messenger RNA (mRNA) from 14 high-risk HPV types (16,18,31,33,35,39,45,51,52,56,58,59,66,68). Cervical sources are required for HPV testing. If a vaginal source from a patient who has had a total hysterectomy with removal of cervix was submitted, please contact the testing laboratory for alternative testing options. For additional information, please refer to http://education.[employer]/faq/GOX831o9 (This link if provided for information/ educational purposes only.) Test Performed at: [facility] [address] [place] [address] Emily TRAN Genital SWAB OF ENDOCERVIX / Unknown 01/06/2023 01/08/2023 10:07 AM CDT us Ryann Burk MD PATHOLOGY/CYTOLOGY ORDERABLES Fi nal Result [facility] [phone] [facility] [address] [place] [address] * MAMMO DIAGNOSTIC UNI RIGHT W OR [...] of Phone Billing Address Personal/Family [address] [place] [address] RX INFOCROSSING Medicaid RX [employer] (INTERNAL) [employer] [place]ICAID [place] [facility] [place] [address] Advance Directives For more information, please contact: [phone] Documents on File Type Date Recorded Patient Tip Stitcher Expl anation Advance Directive Living Will 07/23/2023 11:03 AM Advance Directive Living Will Advance Directive POA 07/23/2023 11:03 AM A dvance Directive POA * Full Code (Latest Code Status on File) Date Activated Date Inactivated Comments 10/10/2024 12:35 PM 10/11/2024 5:39 PM * Full Code Date Activated Date Inactivated Comments 10/01/2024 3:33 PM 10/03/2024 3:16 PM * Full Code Date Activated Date Inactivated Comments 09/12/2024 11:06 PM 09/15/2024 2:37 PM * Full Code Date Activated Date Inactivated Comments 08/30/2024 3:46 AM 08/30/2024 4:48 PM * Full Code Date Activated Date Inactivated Comments 08/22/2024 6:42 PM 08/26/2024 8:37 PM Care Teams Carpenter Rough Relationship Specialty Start Date End Date Delta Wade MD [address] [address] PCP - General Family Practice 03/25/24
--- OUTSIDE RECORDS SUMMARY | 2024-10-12 02:47 | XMS_ITS | CCD ---
Author Name Interface, [id number] Address [facility] [place] [address] [facility] Address [address] [place] [address] Care Team Providers Care Boring Inspector Name Role Phone Anika VALLADARES, Allen Unavailable Unavailable Allergies and Adverse Reactions Reason for Visit Medications Problems Social History
--- OUTSIDE RECORDS SUMMARY | 2024-10-12 02:47 | XMS_ITS ---
Author Organization [facility] Address [address] [place] [address] Phone Care Team Providers Care Assistant Sales Center Manager Name Role Phone Delta Wade MD Primary Care Provider Active Problems Problem Noted Date Diagnosed Date [...] 06/14/2019 H/O vaginal surgery 06/14/2019 Atherosclerosis of robinson co ronary artery of robinson heart without angina pectoris 06/14/2019 Urinary incontinence [...]
--- OUTSIDE RECORDS SUMMARY | 2024-10-12 02:48 | XMS_ITS | Patient Health Record ---
Author Organization [facility] Address [address] [place] [address] Care Team Providers Care Pmp Certified Project Manager Name Role Phone ( [facility] ), PHYSICIAN NOT IDENTIFIED Primary Care Provider Unavailable Dominguez Mckay Unavailable [phone] Kyler Martin Unavailable [phone] Allergies Allergen (clinical drug ingredient) Drug/Non Drug Allergy documented on EMR Reaction Allergy Type Onset Date Status ketorolac toradol (uncoded) Unknown Allergy Ac tive Compazine Unknown Drug Allergy Active Reason For Referral No Information Medications Medication SIG (Take, Route, Frequency, Duration) Notes Start Date End Date Status Amoxicillin 500 MG Capsule 1 capsule Orally every 8 hrs; Duration: 5 days 06/08/2024 Active Compazine Not-Taking /PRN Metoprolol Succinate Active oxyCODONE ER Active traMADol HCl Not-Franky ing/PRN Social History Sex Assigned At : Social History Observation Description Sex Assigned At Female Encounters Encounter Location Date Provider Diagnosis [facility] [address] [place] [address] 06/08/20[address]ade [address] [place] [address] [address] [place] [address] 09/28/2024 Dominguez Mckay Plan Of Treatment No Information Insurance Providers Payer Name Payer Address Payer Phone Subscriber Number Group Number Insured Name Patient Relationship to Insured Coverage Start Date Coverage End Date Medicaid Dental [address] [place] [address] [id number] Le Barnhart Self - patient is the insured Medicaid [address] [place] [address] [phone] [id number] Le Barnhart Self - patient is the insured Medical (General) History Medical History History ICD Code heart murmer diabetes emphysema cancer chemotherapy high bp radiation treatment
--- OUTSIDE RECORDS SUMMARY | 2024-10-12 02:48 | XMS_ITS | Patient Health Record ---
Author Organization [facility] Address [address] [place] [address] Care Team Providers Care Billiard Table Mechanic Name Role Phone Delta Waed Primary Care Provider Unavailabl Jose Cruz Callejas Unavailable [phone] Marcia Perez Unavailable [phone] Gregorio Montes Unavailable [phone] Masoud Bello Unavailable [phone] Acacia Gaines Unavailable [phone] Hannah Rai Unavailable [phone] Allergies Allergen (clinical drug ingredient) Drug/Non Drug Allergy documented on EMR Reaction Allergy Type Onset Date Status Compazine Unknown Drug Allergy Active ketorolac Ketorolac Unknown Drug Allergy Active Results Component Value Reference Range Notes Schedule Confirmation Reviewed date:11/30/2023 12:40:58 PM Interpretation: Performing Lab: Notes/Report: Heart Cath Lt poss PTCA Schedule Confirmation Reviewed date:07/03/2024 04:23:35 PM Interpretation: Performing Lab: Notes/Report: CT Chest ION Endoluminal Echo Complete [id number] Reviewed date:11/30/2023 12:41:13 PM Interpretation: Performing Lab: Notes/Report: [id number]&[email or web address]=iSite zzzHeart Cath Lt poss PTCA Reviewed date:11/30/2023 12:41:13 PM Interpretation: Performing Lab: Notes/Report: [id number]&org=iSite Schedule Confirmation Reviewed date:11/30/2023 12:40:58 PM Interpretation: Performing Lab: Notes/Report: Heart Cath Lt poss PTCA Echo Complete [id number] Reviewed date:11/30/2023 12:41:13 PM Interpretation: Performing Lab: [...] This report was dictated outside of the [employer] system. 3523 @ 0100 Read See Below For Report zzzHeart Cath Lt poss PTCA Reviewed date:05/16/2024 05:08:19 PM Interpretation: Performing Lab: Notes/Report: See Below For Report This report was dictated outside of the [employer] system. trop 2nd@ 3510 @ 0021 Read See Below For Report Schedule Confirmation Reviewed date:07/13/2024 07:16:00 PM Interpretation: Performing Lab: Notes/Report: CT Chest ION Endoluminal zzzHeart Cath Lt poss PTCA Reviewed date:05/16/2024 05:08:19 PM Interpretation: Performing Lab: Notes/Report: [id number]=iSite Schedule Confirmation Reviewed date:05/16/2024 05:08:19 PM Interpretation: Performing Lab: Notes/Report: Heart Cath Lt poss PTCA Schedule Confirmation Reviewed date:05/16/2024 05:08:19 PM Interpretation: Performing Lab: Notes/Report: Heart Cath Lt poss PTCA Schedule Confirmation Reviewed date:07/03/2024 04:23:35 PM Interpretation: Performing Lab: Notes/Report: CT Chest ION Endoluminal Prothrombin Time 19745 Reviewed date:05/16/2024 05:08:19 PM Interpretation: Performing Lab: Notes/Report: trop 2nd@ 205 3510 @ 0021 3510 @ 0021 ProTime 10.8 9.1-11.9 SEC Normal Range: 9.1-11.9 INR 1.02 .90-1.20 Therapeutic Range: 2.0-3.0 Therapaeutic Range for heart valve replacement: 2.5-3.50 Partial Thromboplastin Time 44971 Reviewed date:05/16/2024 05:08:19 PM Interpretation: Performing Lab: Notes/Report: trop 2nd@ 205 3510 @ 0021 3510 @ 0021 PTT 27.1 22.6-31.8 SEC Therapeutic Range: 60-100. Critical Value Starting at > 100. NM HB Scan w/ejection fracti on- Reviewed date:01/05/2024 04:36:45 PM Interpretation: Performing Lab: Notes/Report: [id number]&org=iSite NM HB Scan w/ejection fracti on-63432 Reviewed date:01/05/2024 04:37:06 PM Interpretation: Performing Lab: Notes/Report: See Below For Report NM HB Scan w/ejection fraction 2407 @ 2313 Read See Below For Report Schedule Confirmation Reviewed date:07/04/2024 04:08:48 PM Interpretation: Performing Lab: Notes/Report: CT Chest ION Endoluminal Reason For Referral Reason COPD; 06/07: 1 wk pe r Eula 06/07: Left Message SCHEDULED 06/20 @ 2:10 PM Diagnosis 1 Chronic obstructive pulmonary disease, unspecified (J44.9) Referring Provider First Name ER Referring Provider Last Name [facility] Referring Provider Speciality Emergency Medicine Referred Organization [facility] Referred Provider Jose Cruz Landry Referred Address [address] [place] [address] [address],[place], [place],[address], Referred Provider Specialty Pulmonary Di seases General [...] Date Status Comme nts Influenza (whole), CPT 51644 Inactive Unknown 01/04/2024 Administered Social History Tobacco [...] W/U Status Risk Notes Problem Tobacco user (687946201) Nicotine dependence, cigarettes, in remission (F17.211) Active confirmed Problem Ischemic cardiomyopathy (646957140) Ischemic cardiomyopathy (I25.5) Active confirmed Problem Chronic obstructive pulmonary disease (22241998) Chronic obstructive pulmonary disease, unspecified (J44.9) Active confirmed Problem Gastro-esophageal reflux disease without esophagitis (553921236) Gastro-esophageal reflux disease without esophagitis (K21.9) Active confirmed Problem C-reactive protein abnormal (413470542) Elevated C-reactive protein (CRP) (R79.82) Active confirmed Problem Solitary pulmonary nodule (888603927) Solitary pulmonary nodule (R91.1) Active confirmed Problem Long-term current use of anticoagulant (709329391) vice president of development (current) use of anticoagulants (Z79.01) Active confirmed Problem 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 angina pectoris (911395550646184) Arteriosclerosis of coronary artery (I25.10) Active confirmed Problem H/O heart artery stent (Z95.5) Active confirmed Problem Long-term current use of anticoagulant (236156378) Anticoagulated (Z79.01) Active confirmed Problem Angina (468096352) Atheroscleros is of wiyot coronary artery of wiyot heart with angina pectoris (I25.119) Active confirmed Problem Acute non-ST segment elevation myocardial infarction (189038987) Non-ST elevated myocardial infarction (I21.4) Active confirmed Problem History of pulmonary embolus (266677488) Hx of pulmonary embolus (Z86.711) Active confirmed Problem Coronary stent patent (924490593) Coronary stent patent (Z95.5) Active confirmed Problem Chronic respiratory failure (79989672) Chronic hypoxic respiratory failure (J96.11) Active confirmed [...] Encounters Encounter Location Date Provider Diagnosis [facility] [address] [place] [address] 02/17/2024 Gregorio Montes [facility] [place] [address] [place] [address] 06/06/2024 Masoud Bello Other fracture of unspecified lumbar vertebra, initial encounter for closed fracture S32.008A [facility] [address] [place] [address] [place] [address] 06/30/2024 Jose Cruz Landry [facility] [address] [place] [address] [place] [address] 06/20/2024 Jose Cruz Landry Solitary pulmonary nodule [...] remission (ICD-10 - F17.211) Patient smoked a vlri-uqt-hml for 45 years. She has been abstinent [...] Test Test Name Order Date Lumbosacral Spine AP/Lat-60780 5 PFT with FRC: (NO TGV) 06/20/2024 CT Chest ION Endoluminal-72442 5 Insurance Providers Payer Name Payer Address Payer Phone Subscriber Number Group Number Insured Name Patient Relationship to Insured Coverage Start Date Coverage End Date [place] [address] [place] [address] [phone] [id number] GIANFRANCO DIAZ Self - patient is the [...]
--- OUTSIDE RECORDS SUMMARY | 2024-10-12 02:48 | XMS_ITS | CCD ---
Author Name Interface, [facility] Address [address] [facility] [place] [address] [facility] Address [address] [place] [address] Care Team Providers Care Environmental Engineering Aide Name Role Phone Anika VALLADARES, Allen Unavailable [...]
--- NOTE | 2024-10-12 02:49 | ECG_ITS ---
[facility] Test Date: 2024-10-12 Pat Name: Le Barnhart Department: Room: Gender: Female Wind Plant Manager: : 1965 Requested By: Albaro Chan Order Number: [id number] Reading MD: Measurements Intervals [place] Rate: 86 P: 0 CA: 0 QRS: 60 QRSD: 88 T: -15 QT: 331 QTc: 398 Interpretive Statements ATRIAL FIBRILLATION NONSPECIFIC ST & T-WAVE ABNORMALITY No previous ECG available for comparison [email or web address] [id number]
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
--- NOTE | 2024-10-12 02:52 | CTR_ITS ---
PROCEDURE INFORMATION: Exam: CT Head Without Contrast Exam date and time: 10/12/2024 3:59 AM Age: 59 years old Clinical indication: Injury or trauma; Fall; Concussion/head injury TECHNIQUE: Imaging protocol: Computed tomography of the head without contrast. Radiation optimization: All CT scans at this facility use at least one of these dose optimization techniques: automated exposure control; mA and/or kV adjustment per patient size (includes targeted exams where dose is matched to clinical indication); or iterative reconstruction. COMPARISON: CT head thrombolytic [id number] 12/20/2023 11:05 PM RADIATION DOSE METRICS: Total DLP (mGy-cm): 1125.01 FINDINGS: Brain: There is generalized brain atrophy. Guan-white differentiation is preserved. Amorphous lucency is present in the supratentorial white matter bilaterally. No evidence of intracranial hemorrhage or mass effect. Cerebral ventricles: No ventriculomegaly. Paranasal sinuses: Visualized sinuses are unremarkable. No fluid levels. Mastoid air cells: Visualized mastoid air cells are well aerated. Bones: Unremarkable. No acute fracture. Soft tissues: Unremarkable. CT/CT head wo con* [id number] IMPRESSION: 1. Cerebral atrophy and chronic cerebral microvascular disease. 2. No evidence of acute intracranial process.
[2024-10-12 03:00] VITALS: PULSE 90; RESP 20; O2SAT 96
[2024-10-12 03:06] VITALS: PULSE 99
[2024-10-12 03:48] LABS: Hematocrit 38.2 % (36-47); Hemoglobin 11.70 g/dL (11.27-16.99); Mean Corpuscular HGB Conc 30.6 g/dL (30-55); Mean Corpuscular Hemoglobin 30.3 pg (27-33); Mean Corpuscular Volume 99.0 fl (85-98); Nucleated Red Blood Cells % 1.2 %; Platelet Count 175 10^3/cmm (157-399); Red Blood Count 3.86 10^6/uL (3.85-5.65); White Blood Count 8.89 10^3/uL (3.29-11.43)
[2024-10-12] MEDS: iohexol 350 mg/mL 500 mL Btl (per mL) IV (03:57)
[2024-10-12 03:59] LABS: INR 0.93 (0.8-1.2); Prothrombin Time 13.10 SECONDS (12.1-14.9)
[2024-10-12 04:04] LABS: Alanine Aminotransferase 27 U/L (0-33); Albumin Level 3.7 g/dL (3.5-5.2); Alkaline Phosphatase 130 U/L (35-105); Aspartate Amino Transferase 20 U/L (0-32); Blood Urea Nitrogen 27 mg/dL (6-20); Calcium 9.8 mg/dL (8.5-10.5); Carbon Dioxide 24 mmol/L (22-29); Chloride 103 mmol/L (98-107); Creatinine Clr Calc Pharmacy 85.2076; Globulin 2.5 g/dL (1.3-4.6); Glucose 311 mg/dL (65-115); Osmolality Calculated 311 mOsm/kg (285-295); Sodium 142 mmol/L (136-145); Total Protein 6.2 g/dL (6.6-8.7)
[2024-10-12 04:10] LABS: Anion Gap 18.9 (5-19); Potassium 3.9 mmol/L (3.5-5.1)
[2024-10-12 05:19] VITALS: BP 158/99; PULSE 99; RESP 14; O2SAT 97
== END 2024-10-12 05:22 | disposition home or self-care (01) ==
PROVIDERS: Emergency Provider Emergency Medicine; PCP Family Medicine
DX: R07.9 Chest pain, unspecified (principal); Z79.01 Long term (current) use of anticoagulants; Z79.4 Long term (current) use of insulin; Z87.891 Personal history of nicotine dependence; I25.10 Atherosclerotic heart disease of native coronary artery without angina pectoris; J44.9 Chronic obstructive pulmonary disease, unspecified
CPT/HCPCS: 36415; 70450; 71260; 74177; 80053; 85025; 85610; 93005; 94640; 99284; J9999

== ENCOUNTER 2024-11-07 22:56 | Emergency (ER) | payer MEDICAID, SELFPAY ==
--- OUTSIDE RECORDS SUMMARY | 2020-06-27 10:30 | XMS_ITS | Continuity of Care Document ---
Author Organization [facility] Address [address] [place] [address] Phone Care Team Providers Care Composite Science Teacher Name Role Phone Unavailable Unavailable Unavailable Allergies, [...] - Active Procedures Procedure Date OFFICE/OUTPATIENT VISIT, [facility] Advance Directives Directive Yes / No Effective Date File Name No Information Encounters Encounter Description Practice Location Reason(s) For Visit Diagnoses Date Provider Providers Copied on Encounter OFFICE/OUTPA TIENT VISIT, [facility], [address], [place], [place], [address] , [place] tel: [phone] [facility] follow up [...] democrat ID Authoriza dioni(s) Medicaid - Medical [id number] Social History Type Description Quantity Date Captured [...] her vagina and is being managed at [facility]. Patient has HTN, hip pain, and [...] her vagina and is being managed at [facility]. Patient has HTN, hip pain, and [...]
--- OUTSIDE RECORDS SUMMARY | 2024-07-19 03:00 | XMS_ITS ---
Author Organization [facility] Address [address] [place] [address] Care Team Providers Care Cyber Defense Forensics Analyst Name Role Phone Delta Wade Primary Care Provider Jose Cruz Harvey [phone] REASON FOR VISIT [phone] Encounters Encounter Location Date Provider Diagnosis [facility] [address] [place] [address] [place] [address] 07/19/2024 Jose Cruz Forde Plan Of Treatment No Information Progress Notes * GIANFRANCO DIAZDOB: 6 (59 yo F)Acc No.[id number]:07/19/2024 Pulmonary Function Test Patient: Jahaira GIANFRANCO HANNA Provider: Abdirahman Forde MD :1965 A ge:59 Y S ex:Female Date:07/19/2024 Address:[address] [place], [place] [phone] Pcp:Delta Wade Subjective: * Chief Complaints: * 6 [id number] Billing Information: * Procedure Codes: * Electronic signature of Natasha Forde MD on 11/07/2024 at 11:09 PM CDT Sign off status: Pending * Provider: Abdirahman Forde MD Date: 07/19/2024 Generated for Mani contreras/Moshe/eTransmitting on: 11/07/2024 11:09 PM CDT
--- OUTSIDE RECORDS SUMMARY | 2024-07-19 05:10 | XMS_ITS ---
Author Organization [facility] Address [address] [facility] [place] [address] Care Team Providers Care Home Theater Expert Name Role Phone Delta Wade Primary Care Provider Jose Cruz Harvey [phone] REASON FOR VISIT abnormal chest CT Medications [...] Encounter Location Date Provider Diagnosis [facility] [address] [place] [address] [place] [address] 07/19/2024 Jose Cruz Forde Solitary pulmonary nodule [...] remission (ICD-10 - F17.211) Patient smoked a hbqa-aer-wpm for 45 years. She has been abstinent [...] cigaret taiwo, in remission Patient smoked a akva-ewk-gak for 45 yea rs. She has been [...] 07/08/24 but was hospitalized twice at [facility] and unable to complete her pre-surgical [...] DIAZ, GIANFRANCO PageDOB: 6 (59 yo F)Acc No.[id number]:07/19/2024 Progress Notes Patient: GIANFRANCO GARCIA Provider: Abdirahman Forde MD :1965 A ge:59 Y S ex:Female Date:07/19/2024 Address:[address] [place], [place] [phone] Pcp:Delta Wade Subjective: * Chief Complaints: * [...] 07/08/24 but was hospitalized twice at [facility] and unable to complete her pre-surgical testing. ION rescheduled for 07/22/24 -ION CT. * ROS: Juliette cain of systems of [facility] has been reviewed and scanned [...] 1 TABLET BY MOUTH EVERY DAY Oral Vca-QzccpqHLXWRxraxnl-Lqtayydmvefsb 5-325 MG Tablet TAKE 1 TABLET BY [...] cigarettes, in remission Notes: Patient smoked a efwm-ulg-liq for 45 years. She has been abstinent for a year now. ? 4. S hortness of breath Notes: Obtain PFT. 5. O thers Clinical Notes:I, Jolene Toussaint, am scribing for, and in the presence of Dr. oJse Cruz Forde. I, Dr. Jose Cruz Forde, personally performed the services described in this documentation, as scribed by Jolene Toussaint in my presence, and it is both accurate and complete. * Immunizations: Immunization record has been reviewed and updated. Billing Information: * Procedure Codes: Care Plan Details* * Electronic signature of Natasha Forde MD on 11/07/2024 at 11:08 PM CDT Sign off status: Pending * Provider: Abdirahman Forde MD Date: 07/19/2024 Generated for Mani contreras/Moshe/Adrianitting on: 0 11/07/2024 11:08 PM CDT
--- OUTSIDE RECORDS SUMMARY | 2024-07-22 05:00 | XMS_ITS ---
Author Organization [facility] Address [address] [place] [address] Care Team Providers Care Stock Selector Name Role Phone Delta Wade Primary Care Provider Jose Cruz Harvey [phone] Encounters Encounter Location Date Provider Diagnosis [facility] [address] [place] [address] [place] [address] 07/22/2024 Jose Cruz Forde Plan Of Treatment No Information Progress Notes * GIANFRANCO DIAZDOB: 6 (59 yo F)Acc No.[id number]:07/22/2024 Patient: Jahaira HANNA GIANFRANCO Page Provider: Abdirahman Forde MD :1965 A ge:59 Y S ex:Female Date:07/22/2024 Address:[address] [place], [place] [phone] Pcp:Delta Wade * Electronic signature of Natasha Forde MD on 11/07/2024 at 11:10 PM CDT Sign off status: Pending * Provider: Abdirahman Forde MD Date: 07/22/2024 Generated for Printi ng/Faxing/eTransmitting on: 11/07/2024 11:10 PM CDT
--- OUTSIDE RECORDS SUMMARY | 2024-08-23 05:00 | XMS_ITS ---
Author Organization [facility] Address [address] [place] [phone] Care Team Providers Care New Car Make Ready Mechanic Name Role Phone ( [facility] ), PHYSICIAN NOT IDENTIFIED Primary Care Provider Unavailable Dominguez Mckay Unavailable [phone] REASON FOR VISIT TA - Filling Social History Sex Assigned At : Social History Observation Description Sex Assigned At Female Encounters Encounter Location Date Provider Diagnosis [address] [place] [address] [facility] [address] [place] [phone] 08/23/2024 Dominguez Mckay Plan Of Treatment No Information Progress Notes * DIAZ, ZhangaDOB:1965 (59 yo F)Acc No.[id number]:08/23/2024 Patient: Le Colindres Provider: Jahaira Mckay DDS :1965 A ge:59 Y S ex:Female Date:08/23/2024 Address:[address] [place], [place] [phone] Pcp:PHYSICIAN NOT IDENTIFIED ( [facility] ) Subjective: * Chief Complaints: * T A - Filling Billing Information: * Procedure Codes: * Electronic signature of Jayda Mckay DDS on 11/07/2024 at 11:08 PM CDT Sign off status: Pending * Provider: Jahaira Mckay DDS Date: 08/23/2024 Generated for Printi ng/Faxing/eTransmitting on: 11/07/2024 11:08 PM CDT
--- OUTSIDE RECORDS SUMMARY | 2024-09-07 03:30 | XMS_ITS ---
Author Organization [facility] Address [address] [place] [phone] Care Team Providers Care Bead Worker Sewing Name Role Phone ( [facility] ), PHYSICIAN NOT IDENTIFIED Primary Care Provider Unavailable Dominguez Mckay Unavailable [phone] REASON FOR VISIT TA causing alot of [place]-pt wants filling done- told pt it was a limited not restore appt Social History Sex Assigned At : Social History Observation Description Sex Assigned At Female Encounters Encounter Location Date Provider Diagnosis [address] [place] [address] Dental Clinic [address] [place] [phone] 09/07/2024 Dominguez Mckay Plan Of Treatment No Information Progress Notes * Zhang DIAZIvettB:1965 (59 yo F)Acc No.[id number]:09/07/2024 Patient: Le Colindres Provider: Jahaira Mckay DDS :1965 A ge:59 Y S ex:Female Date:09/07/2024 Address:[address] [place], [place] [id number] Pcp:PHYSICIAN NOT IDENTIFIED ( [facility] ) Subjective: * Chief Complaints: * T A causing alot of [place]-pt wants filling done- told pt it was a limited not restore appt Billing Information: * Procedure Codes: * Electronic signature of Jayda Mckay DDS on 11/07/2024 at 11:07 PM CDT Sign off status: Pending * Provider: Jahaira Mckay DDS Date: 0 09/07/2024 Generated for Mani contreras/Moshe/Binta on: 0 11/07/2024 11:07 PM CDT
--- OUTSIDE RECORDS SUMMARY | 2024-10-31 06:02 | XMS_ITS | Encounter Summary ---
Author Organization [facility] Address [address] [place] [address] Care Team Providers Care Policy Writer Sales Name Role Phone Delta Wade MD Primary Care Provider [phone] Reason for Referral * Home Health (Routine) - Open Specialty Diagnoses / Procedures Referred By Contteri t Referred To Contact Diagnoses Acute on chronic combined systolic and diastolic CHF (congestive heart failure) ([facility]) James Lee MD Formerly [facility] [place] [address] Phone: tel: fax: Referral ID Status Reason Start Date Expiration Date Visits Re quested Visits Authorized [id number] Open 11/04/2024 11/04/2025 1 1 * Eval and Treat (Routine) - Open Specialty Diagnoses / Procedures Referred By Marcelle smith Referred To Contact Pulmonology Diagnoses Abnormal chest CT Procedures WI OFFICE/OUTPATIENT ESTABLISHED MOD MDM 30 MIN WI OFFICE/OUTPATIENT NEW MODERATE MDM 45 MINUTES James Lee MD [address] [place] [address] Phone: tel: fax: [facility] [place] [address] [place] [address] Phone: tel: fax: Referral ID Status Reason Start Date Expiration Date Visits Requested Visits Authorized [id number] Open Performing Department to Schedule 11/04/2024 11/04/2025 1 1 Scheduling Instructions Lung mass , Ex smoker * Eval and Treat (Routine) - Authorized Specialty Diagnoses / Procedures Referred By Marcelle smith Referred To Contact Diagnoses Type 2 diabetes mellitus with hyperglycemia, with long-term current use of insulin ([facility]) Procedures WI OFFICE/OUTPATIENT ESTABLISHED MOD MDM 30 MIN WI OFFICE/OUTPATIENT NEW MODERATE MDM 45 MINUTES James Lee MD [address] [place] [address] Phone: tel: fax: Referral ID Status Reason Start Date Expiration Date V isits Requested Visits Authorized [id number] Authorized 11/04/2024 11/04/2025 1 1 * Eval and Treat (Routine) - Pending Review Specialty Diagnoses / Procedures Referred By Marcelle smith Referred To Contact Diagnoses Chest pain, unspecified type Procedures WI OFFICE/OUTPATIENT ESTABLISHED MOD MDM 30 MIN WI OFFICE/OUTPATIENT NEW MODERATE MDM 45 MINUTES James Lee MD [address] [place] [address] Phone: tel: fax: Referral ID Status Reason Start Date Expiration Date V isits Requested Visits Authorized [id number] Pending Review 11/04/2024 11/04/2025 1 1 Reason for Visit * Reason Comments Shortness of Breath Wears 4lpm O2 at all time. Recent fall. Pt reports that she had a syncopal episode this morning. States I woke up face first on the floor * Auth/Cert (Routine) Specialty Diagnoses / Procedures Referred By Marcelle smith Referred To Contact Emergency Medicine [facility] Emergency Department [address] [place] [id number] Phone: tel: fax: Referral ID Status Reason Start Date Expiration Date Visits Re quested Visits Authorized [id number] 1 1 Encounter Details Date Type Department Care Team (Latest Contact Info) Description 10/31/2024 6:02 AM CDT - 11/04/2024 4:24 PM CDT Hospital Encounter [facility] 4B Cardiac [address] [place] [address] Aggie Rivas DO [address] [place] [id number] Danyell Dewitt MD [address] [place] [address] Li Box MD [address] [place] [address] James Lee MD [address] [place] [address] Syncope Discharge Disposition: Home or Self Care Social History Tobacco Use Types Packs/Day Years Used Date Smoking Tobacco: Former Cigarettes 1 43 S tarted: 07/21/2022 Smokeless Tobacco: Never Alcohol Use Standard Drinks/Week Comments No 0 (1 standard drink = 0.6 oz pur e alcohol) Comments No Sex and Gender Information Value Date Recorded Sex Assigned at Not on file 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 Gender Identity Not on file Sexual Orientation Not on file documented as of this encounter Last Filed Vital Signs Vital Sign Reading Time Taken Comments Blood Pressure 112/61 11/04/2024 11:42 AM CDT Pulse 68 11/04/2024 12:08 PM CDT Temperature 36.3 C (97.3 F) 11/04/2024 11:42 AM CDT Respiratory Rate 20 11/04/2024 12:0 8 PM CDT Oxygen Saturation 96% 11/04/2024 11: 59 AM CDT Inhaled Oxygen Concentration - - Weight 106.3 kg (234 lb 5.6 oz) 11/04/2024 4:33 AM CDT Height 162.6 cm (5' 4 ) 11/02/2024 12:5 9 AM CDT Body Mass Index 40.23 11/02/2024 12:59 AM CDT documented in this encounter Discharge Summaries * James Lee MD - 11/04/2024 3:08 PM CDT [facility] Hospitalist- Discharge Summary Le Diaz 59 y.o. female 1965 CSN: [id number] Date of Admission: 10/31/2024 Date of Discharge: 11/04/2024 Discharging Physician: James Lee MD PCP: Delta Wade MD LOS: 2 days Code Status at Discharge: Full Code Dispo: Home Labs and studies from this hospitalization needing follow up: CBC and Comprehensive Metabolic Panel (CMP) in 2 weeks Repeat hemoglobin A1c in 3 months Pending Labs Order Current Status BLOOD CULTURE Preliminary result BLOOD CULTURE Preliminary result Abnormal Imaging: CT lung that needs a follow-up mass Follow-up: You must follow up with eDlta Wade MD in 3 to 5 days FOLLOW UP CONSULTANTS: With endocrine referral has been placed due to poorly controlled diabetes. Pulmonary referral for lung mass. Cardiology follow-up in 4 weeks Discharge Condition: improving Primary Discharge Diagnosis: Syncope COPD exacerbation Other Active medical issues also addressed during this admission: Active Hospital Problems Diagnosis Hepatic steatosis Mass of left lung Diabetes mellitus with hyperglycemia (CMS/HCC) Essential hypertension Abnormal chest CT Chronic anticoagulation HFrEF (heart failure with reduced ejection fraction) ([facility]) Chronic respiratory failure with hypoxia, on home O2 therapy ([facility]) NSTEMI (non-ST elevated myocardial infarction) ([facility]) History of breast cancer Chronic pain syndrome Mixed hyperlipidemia Resolved Hospital Problems Diagnosis Date Resolved Shortness of breath 11/04/2024 Other chest pain 11/04/2024 syncopal episode 11/04/2024 Peripheral edema 11/04/2024 HOSPITAL COURSE: Please see H and P for full details on admission, symptoms and initial care. Ms. Diaz is a 59 y.o. female with PMH significant for essential HTN, HLD, GERD, COPD on 3-4 L nasal cannula oxygen at home, CAD s/p coronary stent placement, CHF, HEENA/bipolar disorder, insulin-dependent diabetes mellitus, history of breast C s/p mastectomy, history of PE on anticoagulation, chronic pain syndrome, history of splenectomy, obesity and former tobacco use who was just admitted October 26 through October 29. She was discharged to home to follow-up with pulmonology in 2 weeks. During that admission she was admitted for a COPD exacerbation. She was treated with Solu-Medrol as well as nebulizers and Robitussin. She was discharged on her home O2 at 4 L nasal cannula. She was also discharged on Lovenox twice daily as well as Coumadin until her INR becomes therapeutic at 2-3 which she is on for history of PE. She says she was at home she went to get out of her car and fell and fell on her face she initially told the ER that she was short of breath and had chest pain. She has chest pain and is asking forpain medications In the ER she did have a CT scan done of her head that shows no acute intracranial finding. CTA of her chest showed no central pulmonary artery filling defects to suggest large volume PE. There is noevidence of RV strain. There was a masslike consolidation in the left lung base similar to the prior CT. She was given antibiotics in the emergency room and hospitalist were asked to admit. Cardiology hasbeen consulted from the ER also because of her chest pain and history of coronary artery disease. At the time of evaluation in the ER by the admitting physician , patient is resting on the ER stretcher. She seems anxious, asking for pain meds over and over. We discussed admission to the hospital.We also discussed that she has had multiple admissions recently and perhaps she would benefit from having some additional rehab or assistance at home and she verbalizes that she is open to this. She also was describing some abdominal cramping and some constipation. . She is currently on Lovenox twice daily until her INR is therapeutic, she thinks she forgot to take it last night-will resume and check INR daily until INR is therapeutic at 2-3. BNP 247, troponin trend flat in the 20s 8/12: awake, ox3. Sugars very high 400-500, she is currently on baseline home O2 3L, no wheezing, will hold IV steroids> p.o. today given significant hyperglycemia which can lead to complications. Noted she was recently discharged on 10/29 for on p.o. steroids for her COPD- appears she is very sensitive to steroids if she was compliant with her diabetic regiment. Follow A1c, adjusting Lantus and Humalog, recheck BMP/lactic acid. If persistent high sugars-might need to stepdown transfer with insulin gtt. PT/OT recommend home patient was transferred to the ICU 11/01 night for insulin drip. 11/02 patient received 15 units of Lantus +35 units yesterday on insulin drip started last night. Today this morning blood sugars are less than 150.. Hemoglobin A1c is pending from this admission . Echocardiogram is pending. Many medication including Jardiance and Entresto are on hold last hemoglobin A1c is 8.9, resume Entresto stop Lovenox as INR is more than 2 11/03 stop prednisone. Patient received 45 units of Lantus yesterday blood sugars of 220 this morning. Also gets 8 units three times daily along with sliding scale INR 2.4 resume Coumadin 11/04 patient is very insisting on discharge she feels better. Her pain at back of the shoulder is improved. Her breathing is also improved she completed 5 days of steroids and antibiotic while in the hospital She has received insulin. Cardiac event monitor has been placed She has been seen in snacking on out of chips and regular soda. Diabetic education was provided to the patient at bedside. Patient is discharged with a new regimen of insulin. She would be a good candidate for GLP agonist. Outpatient referrals for pulmonology and endocrinology has been placed. She has quit smoking 18 months ago Patient is instructed to return back to the ER or seek medical attention if experiencing increasingshortness of breath, passing out, new fever, chest pain that does not go away persistent nausea vomiting. They showed understanding. Patient was seen by the physical therapy and Occupational Therapy while in the hospital and recommendations made for . Case management was consulted and arrangements were made for same home Home health was ordered for the patient. Patient and family agreeable to the discharge plan . PCP COMMUNICATION : Delta Wade MD via [employer] communication MEDICATION RECONCILIATION Current and discharge medications reviewed and reconciled: Yes MEDICATION CHANGES (significant) The following medications were started during this hospitalization: The following medications were stopped: The following medications were changed: PERTINENT LAB DATA ON DISCHARGE: See epic Consultants: IP CONSULT TO IV TEAM IP CONSULT TO IV TEAM IP CONSULT TO IV TEAM IP CONSULT TO IV TEAM IP CONSULT TO CASE MANAGEMENT IP CONSULT TO IV TEAM IP CONSULT TO HOME CARE NEEDS IP CONSULT TO SHIFT LEADER IP CONSULT TO NUTRITION SERVICES Procedures performed: None 11/03 1043 Note By: Noah Cavazos, PCT DISCHARGE MEDICATIONS: Medication List PAUSE taking these medications empagliflozin 10 mg tablet Wait to take this until your doctor or other care provider tells you to start again. Commonly known as: JARDIANCE Take 1 Tablet (10 mg) by mouth daily in the morning. Signed by: Dr. Pio Anderson Quantity: 30 Tablet Refills: 0 furosemide 80 mg tablet Wait to take this until your doctor or other care provider tells you to start again. Commonly known as: LASIX Take 1 Tablet (80 mg) by mouth 2 times daily. Signed by: Dr. Steven Fairchild Quantity: 60 Tablet Refills: 3 potassium CHLORIDE 10 mEq Extended Release tablet Wait to take this until your doctor or other care provider tells you to start again. Commonly known as: KLOR-CON Take 1 Tablet by mouth daily. Refills: 0 START taking these medications acetaminophen 325 mg tablet Commonly known as: TYLENOL Take 2 Tablets (650 mg) by mouth every 6 hours as needed for Pain, Mild / Temperature (.). Signed by: Dr. Ofelia Lee Refills: 0 methocarbamoL 500 mg tablet Commonly known as: ROBAXIN Take 1 Tablet (500 mg) by mouth every 6 hours as needed for Spasm. Signed by: Dr. Ofelia Lee Quantity: 20 Tablet Refills: 0 CHANGE how you take these medications Lantus Solostar U-100 Insulin 100 unit/mL (3 mL) solution for injection What changed: how much to take Inject 40 Units by subcutaneous injection daily at bedtime. Signed by: Dr. Ofelia Lee Quantity: 15 mL Refills: 1 Generic drug: insulin glargine CONTINUE taking these medications aspirin 81 mg Tablet, Chewable Commonly known [...] Myron Burk Quantity: 1 Each Refills: 0 Brilinta 90 mg Tablet Take 90 mg by mouth 2 times daily. Refills: 0 Generic drug: ticagrelor ackzykzenu-sfvynhlcrqkgza-zidhezwpsw 160-9-4.8 mcg/actuation HFA Aerosol Inhaler Commonly known as: BREZTRI Take 2 Puffs by inhalation 2 times daily. Signed by: Dr. Pio Borges Quantity: 60 Each Refills: 1 fluorouraciL 5 % Cream Commonly known as: EFUDEX Refills: 0 HYDROcodone-acetaminophen 7.5-325 mg Tablet Commonly known as: NORCO Take 1 Tablet by mouth every 8 hours as needed for Pain, Moderate or Pain, Severe. Refills: 0 insulin lispro 100 unit/mL pen syringe Commonly [...] Pio Virgen Quantity: 30 Tablet Refills: 1 levalbuterol 1.25 mg/3 mL Solution for Nebulization Commonly known as: XOPENEX Take 1.25 mg by inhalation every 6 hours as needed for Shortness of Breath or Wheezing. Refills: 0 LORazepam 0.5 mg tablet Commonly known as: ATIVAN Take 1 Tablet (0.5 mg) by mouth every 8 hours as needed for Anxiety. Signed by: Dr. Juliette Camarillo Quantity: 20 Tablet Refills: 0 metoprolol succinate 25 mg Extended Release 24 hour tablet Commonly known as: TOPROL XL Take 1 Tablet (25 mg) by mouth daily. Signed by: Dr. Pio Anderson Quantity: 30 Tablet Refills: 0 naloxone 4 mg/spray Coleman, Non-Aerosol Commonly known as: NARCAN EMERGENCY USE [...] glucose DAILY Refills: 0 Generic drug: lancets oxygen home delivery Home Oxygen Concentrator yes [...] Myron Burk Quantity: 1 Each Refills: 0 ranolazine ER 500 mg Extended Release 12 hour tablet Commonly known as: RANEXA Take 1 Tablet (500 mg) by mouth every 12 hours. Signed by: Dr. Pio Borges Quantity: 60 Tablet Refills: 1 sacubitriL-valsartan 24-26 mg Tablet Commonly known as: ENTRESTO Take 1 Tablet by mouth 2 times daily. Signed by: Dr. Pio Anderson Quantity: 60 Tablet Refills: 0 TechLITE Pen Needle 29 gauge x 1/2 Needle USE directed with Josie. Refills: 0 Generic drug: Insulin [place] (Disposable) triamcinolone acetonide 0.1 % Ointment Commonly known as: KENALOG Apply to affected area 2 times daily as needed for Other (See Comment) (rash). Signed by: Dr. Cameron Mena Quantity: 10 Gram Refills: 0 Ventolin HFA 90 mcg/actuation inhaler Take 2 Puffs by inhalation every 6 hours as needed. Refills: 0 Generic drug: albuterol sulfate warfarin 6 mg tablet Commonly known as: COUMADIN Take 2 Tablets (12 mg) by mouth late in the day. Signed by: Dr. Pio Borges Quantity: 30 Tablet Refills: 1 STOP taking these medications enoxaparin 100 mg/mL injection Commonly known as: LOVENOX Lidocaine 4 % Adhesive Patch, Medicated predniSONE 20 mg tablet Commonly known as: DELTASONE tiZANidine 2 mg Tablet Commonly known as: ZANAFLEX Where to Get Your Medications These medications were sent to [facility] [address] [address] Hours: Thursday - Thursday: 7 am - 9 pm; Thursday - Thursday: 8 am - 4 pm Lantus Solostar U-100 Insulin 100 unit/mL (3 mL) solution for injection methocarbamoL 500 mg tablet Please take the prescriptions given to you during your stay and have them filled at any pharmacy. You don't need a prescription for these medications acetaminophen 325 mg tablet Future Appointments Date Time Provider Department Center 11/04/2024 9:00 PM [facility] SCHEDULE RESPTHPY [facility] 11/08/2024 8:00 AM [facility] [place]/14/2024 3:30 PM Jerson Salas PA [facility] 01/12/2025 1:40 PM Tresa Stockton, [facility] DIET: Cardiac Diet. Diabetic ACTIVITY LEVEL: activity as tolerated. Wound Care: None needed DISCHARGE EXAM: BP 112/61 (BP Location: Right arm, Patient Position (BP): Sitting) Pulse 68 Temp 97.3 ??F (36.3??C) (Temporal) Resp 20 Ht 5' 4 (1.626 m) Wt 106.3 kg (234 lb 5.6 oz) SpO2 96% BMI 40.23kg/m?? Last documented weight: Weight: 106.3 kg (234 lb 5.6 oz) (11/04/24 0433) General: alert, in no distress obese Neurologic: Grossly normal , No focal deficits . HEENT: atraumatic, Normocephalic, without obvious abnormality Lungs: clear to auscultation bilaterally, normal respiratory effort Heart: normal rate, regular rhythm, normal S1, S2, no murmurs, rubs, clicks or gallops Abdomen: Soft, non-tender. Bowel sounds normal. No masses, no organomegaly. Extremities: No edema in the pretibial and ankle Skin: Bruising on the left shoulder Total time spent on discharge services today including examining and educating the patient and available family members at the bedside , writing prescriptions and reviewing the discharge medication list, documenting this discharge summary and coordinating outpatient care and follow up required morethan 30 minutes. documented in this encounter Discharge Instructions * Discharge Instructions* Kenyon Glynn RN - 11/01/2024 1:28 PM CDT Thank you for participating in your heart failure education. It's really important to know how to take care of your heart! If you have any questions or need help, please ask us anytime. Heart Failure means that your heart does not pump enough blood to meet your body???s needs. Sometimes fluid can back up into your lungs causing shortness of breath. Or fluid can back up into other parts of your body--you may notice swelling in your legs, feet or in your stomach area. As you retain fluid, your weight will go up. You may feel tired and not feel like eating. Most people tend to havethe same symptoms each time their heart failure worsens. Heart failure zones give you an easy way to see changes in your heart failure symptoms. They also tell you when you need to get help. Check every day to see which zone you are in: HEART FAILURE ZONE MANAGEMENT EVERYDAY: Weigh yourself in the morning after going to the bathroom but before eating or drinking. Record your weight on your CHF Daily Record Sheet (in your Living With Heart Failure booklet) and compare it to the prior day???s weight. Take your medicine as prescribed. Check your feet, ankles, legs, and abdomen for swelling. Assess your breathing (was it difficult to lay flat or are you more short of breath). Eat low salt food. Balance activity and rest periods. What Heart Failure Zone are you today? GREEN, YELLOW, or RED? GREEN ZONE: All CLEAR when: Your weight is stable. You have no trouble breathing. You can do your normal activity. You have no changes in your symptoms. YELLOW ZONE: CAUTION! Call your health care provider today: Your weight goes up 2 pounds in one day or 9-ee-7-pound gradual weight gain over a week. You have more swelling in your feet, ankles, legs, or abdomen. Increased shortness of breath. You have a dry cough that does not go away. You use 2 or more pillows or a recliner to breathe better at night and this is new for you. You feel more tired or have less energy than usual. You have SIDE EFFECTS from your medicines. RED ZONE: MEDICAL ALERT EMERGENCY! CALL RIGHT AWAY when: You have unrelieved shortness of breath at rest or struggling to breathe. You have unrelieved chest pain. You have unrelieved wheezing or chest tightness at rest. You are having confusion or cannot think clearly. CALL 911 for severe shortness of breath or chest pain that will not go away. [facility] Discharge Instructions Discharge & Transfer patient to: Home Symptoms/Diagnosis: Syncope Procedures Performed, if any: 11/03 1043 Note By: Noah Cavazos, MILES Labs and studies from this hospitalization needing follow up: None Follow up PCP Your physician, Delta Wade MD, has been notified of this hospitalization. Follow-up: You must follow up with Delta Wade MD in 3-5 days Follow up consultants With Specialist as scheduled. Future Appointments Date Time Provider Department Center 11/08/2024 8:00 AM Eduardo Craven MD [facility] 11/14/2024 3:30 PM Jerson Salas PA [facility] 01/12/2025 1:40 PM Tresa Stockton, [facility] If the office does not reach you to make a follow up appointment, please call [phone]. Activity level: up as tolerated DIET: DIET DIABETIC Wound Care: Follow up in the Emergency Room For any recurrence or worsening of admission concerns, chest pain, palpitations, shortness of breath, coughing blood, nausea, vomiting, diarrhea, pain, fever, chills, bleeding, bloody or tarry stools, change to urine or bowel output, Contact hospitalist office [phone] for questions [facility] * Attachments The following attachments cannot be sent through Care Everywhere. * Diabetes: Carb Counting and Eating Well: General Info (Honduran) documented in this encounter Medications at Time of Discharge acetaminophen (TYLENOL) 325 mg tablet Take 2 Tablets (650 mg) by mouth every 6 hours as needed for Pain, Mild / Temperature (.). 11/04/2024 Lantus Solostar U-100 Insulin 100 unit/mL (3 mL) solution for injection Inject 40 Units by subcutaneous injection daily at bedtime. 15 mL 1 11/04/2024 methocarbamoL (ROBAXIN) 500 mg tablet Take 1 Tablet (500 mg) by mouth every 6 hours as needed for Spasm. 20 Tablet 11/04/2024 budesonide 160 mcg-glycopyr 9 mcg-formot 4.8 mcg/actuation HFA inhaler Take 2 Puffs by inhalation 2 times daily. 60 Each 1 10/29/2024 ranolazine ER (RANEXA) 500 mg Extended Release 12 hour tablet Take 1 Tablet (500 mg) by mouth every 12 hours. 60 Tablet 1 10/29/2024 warfarin (COUMADIN) 6 mg tablet Take 2 Tablets (12 mg) by mouth late in the day. 30 Tablet 1 10/29/2024 furosemide (LASIX) 80 mg tablet Take 1 Tablet (80 mg) by mouth 2 times daily. 60 Tablet 3 10/19/2024 HYDROcodone-aceta minophen (NORCO) 7.5-325 mg Tablet Take 1 Tablet by mouth every 8 hours as needed for Pain, Moderate or Pain, Severe. empagliflozin (JARDIANCE) 10 mg tablet Take 1 Tablet (10 mg) by mouth daily in the morning. 30 Tablet 10/04/2024 metoprolol succinate (TOPROL XL) 25 mg Extended Release 24 hour tablet Take 1 Tablet (25 mg) by mouth daily. 30 Tablet 10/03/2024 sacubitriL-valsar sahni (ENTRESTO) 24-26 mg Tablet Take 1 Tablet by mouth 2 times daily. 60 Tablet 10/03/2024 ipratropium-albut Lisa (DUONEB) 0.5 mg-3 mg(2.5 mg base)/3 mL Solution for Nebulization Take 3 mL by inhalation every 4 hours as needed for Shortness of Breath. 300 mL 1 09/10/2024 Nebulizer & Compressor For Neb Device every 4 hours as needed for Other (See Comment) (shortness of breath). 1 Each 09/10/2024 levalbuterol (XOPENEX) 1.25 mg/3 mL Solution for [...] injection 3 times daily with meals. 08/06/2024 oxygen home delivery Home Oxygen Concentrator [...] Take 1 Tablet by mouth daily. 05/09/2024 nitroglycerin (NITROSTAT) 0.4 mg Tablet, Sublingual Place 0.4 mg under tongue. 05/19/2024 OLANZapine (ZyPREXA) 10 mg tablet Take 10 mg by mouth daily at bedtime. 04/12/2024 aspirin (CARTER CHEWABLE) 81 mg Tablet, Chewable Take 81 mg by mouth daily. LORazepam (ATIVAN) 0.5 mg tabletIndications :Anxiety state Take 1 Tablet (0.5 mg) by mouth every 8 hours as needed for Anxiety. 20 Tablet 04/11/2024 fluorouraciL (EFUDEX) 5 % Cream 02/01/2024 portable oxygenIndications :Chronic obstructive pulmonary disease, unspecified COPD type ([facility]/HCC),Oxygen dependent Face to Face completed within 30 days: yes Length of Need: 99 months By: Nasal Cannula Continuously at 3 L/min. 1 Each 08/27/2023 naloxone (NARCAN) 4 mg/spray Coleman, Non-Aerosol EMERGENCY USE ONLY: Administer 1 spray (4 mg) in one nostril one time. May repeat in alternating nostrils every 2-3 min until responsive or EMS arrives. 2 Each 3 01/06/2023 blood sugar diagnostic StripIndications: Type 2 diabetes mellitus without complication, without long-term current use of insulin ([facility]) Use to test blood glucose up to QID PRN symptoms. 100 Each 11 12/17/2022 OneTouch Delica Plus Lancet 30 gauge USE TO test fasting blood glucose DAILY 11/04/2022 Blood-Glucose Meter KitIndications:Ty pe 2 diabetes mellitus without complication, without long-term current use of insulin ([facility]) Use to test blood glucose up to TID PRN symptoms. 1 Each 12/02/2022 ticagrelor (Brilinta) 90 mg Tablet Take 90 mg by mouth 2 times daily. 09/20/2024 5 TechLITE Pen Needle 29 gauge x 1/2 Needle USE directed with Victoza. 12/29/2022 5 documented as of this encounter Progress Notes * Lanny Ca, Occupational Therapist - 11/04/2024 10:10 AM CDT [facility] - Therapy Services 3K Ph. Acute Occupational Therapy Evaluation 11/04/2024 Room: [address] [place] [address] Name: Le Diaz Age: 59 y.o. Patient Class: Inpatient Date of : 1965 Insurance: Payor: MEDICAID / Plan: MEDICAID [place] / Product Type: Medicaid / Prior to OT session thorough chart review completed, including prior OT notes as applicable. Consent to evaluate provided by patient and nurse Date of admission: 10/31/2024 SUBJECTIVE Occupational Profile Information provided by: patient and chart Prior Level of Function ADLs: assistance needed for lower body dressing, bathing, and toileting IADLs: assistance needed for everything, pt's roommates assist Patient does not drive Functional mobility: modified independent using 4WW Falls: a few falls in the last 6 months Home Information Employment/daily routine: Pt enjoys cooking Self-care assist available at home: Pt lives with her roommates who provided assistance and are home 13/10. Home environment: 1-level home 6 step(s) to enter Walk-in shower Durable medical equipment already in home: Walkers: 4WW Hospital bed Home O2; 3-4L/min Hand-held shower head Beauty Therapist Sock aid Additional Information Patient/family statement/goal(s): Pt wishes to return home Comments: Pt initially opposed to therapy. Pt educated on purpose, pt agreeable to therapy following education. Pain: Refer to flowsheet for documentation of pain and interventions. OBJECTIVE Cognition Level of alertness: alert Orientation: oriented to person and place Command following: poor pt impulsive Safety awareness: poor; limited by impulsivity, decreased problem solving, decreased insight into deficits, and decreased attention Memory: unable to assess Vision: wears glasses at baseline UE Function UE Assessment Right Left ROM Active: WNL Active: WNL Strength WFL; 5/5 WFL; 5/5 All additional UE assessments (including tone, coordination, sensation, and edema) not indicated ordeemed WFL. Occupational Performance Activities of Daily Living Feeding: independent for [id number]-[id number]-osfzc excursion Grooming: NT; anticipate supervision seated EOB Upper extremity dressing: NT; anticipate supervision Lower extremity dressing: maximal assistance to don socks, pt stated her roommates assist with LB dressing at home. Toileting: NT; anticipate minimal assistance on toilet for pedro care Toilet transfer: NT; anticipate supervision sit < > stand from toilet. Pt demonstrated sit tostand from EOB with supervision. All tasks not tested with anticipated assist levels are based on observed tasks and movement patterns. Functional Mobility All mobility completed with gait belt and non-skid socks Bed mobility: independent supine < > sit EOB Sit to stand: supervision from EOB for safety, pt is impulsive Functional ambulation: supervision x 20 within room Patient required verbal cues for attention to task, safety due to impulsivity, command following, and problem solving. [facility] AM-PAC Daily Activity How much help from [...] and taking off regular upper body clothing? 3 - A little (supervision to min assist) 5. Taking care of personal grooming such as brushing teeth? 3 - A little (supervision to min assist) 6. Eating meals? 4 - None (independent) Total score 18/24 0-19 indicates likely facility discharge 19-24 indicates likely community discharge *Scores determined based on patient report, observation or professional expertise* Vitals Current O2 requirement: 3 L/min via nasal cannula, pt uses 3 L at home Vital signs stable throughout. Precautions Patient precautions: fall Patient bracing: none Weight bearing: no restrictions ASSESSMENT & PLAN Evaluation Details Le Diaz is a 59 y.o. female referred for OT following admission for syncopal episode. Additional pertinent diagnoses and past medical history related to this hospital stay are present in physician H&P and physician daily notes. OT evaluation: Low complexity Assessment Patient is currently functioning near her prior level of function. Patient does [...] discharge disposition, once medically ready: Home with 24-hour supervision (11/04/24957). Rationale: Safety concerns present. * The final discharge location is determined through physician,case management, and patient/caregiver input along with insurance authorization of skilled serviceswhen appropriate. Plan of care and discharge recommendations shared with patient, child adolescent care, and PT OT recommended DME and AE upon discharge: No new DME recommended (11/04/24957) No new additional adaptive equipment necessary (11/04/24957) Education provided to patient regarding OT recommendations and plan of care, ADL training, functional mobility/transfers, home safety, fall prevention, activity tolerance Education response: verbalized understanding and would benefit from reinforcement Nursing Staff Mobility Recommendations Recommended daily activity during admission: up with supervision and up to chair for meals Disposition At start of session, patient found lying in bed At end of session, patient left in bed, call light in reach, and phone in reach Further treatment notes and therapeutic goals can be found in Care Plan Notes. If the patient discharges from facility before another therapy visit, this shall serve as therapy discharge summary. Thank you for this referral, Jenifer Estrada, Student Therapist Patient seen under direct supervision, agree with above documentation and associated education. Lanny Ca OTR/L (Epic chat to contact) * James Lee MD - 11/03/2024 8:40 AM CDT Images from the original note were not included. Your life is our life's work [facility] Hospitalist/[facility] Progress Note LOS: 1 day Room/Bed: [facility]/01 Patient name: Le Diaz Date of : 1965 HOSPITAL COURSE SUMMARY: Ms. Diaz is a 59 y.o. female with PMH significant for essential HTN, HLD, GERD, COPD on 3-4 L nasal cannula oxygen at home, CAD s/p coronary stent placement, CHF, HEENA/bipolar disorder, insulin-dependent diabetes mellitus, history of breast C s/p mastectomy, history of PE on anticoagulation, chronic pain syndrome, history of splenectomy, obesity and former tobacco use who was just admitted October 26 through October 29. She was discharged to home to follow-up with pulmonology in 2 weeks. During that admission she was admitted for a COPD exacerbation. She was treated with Solu-Medrol as well as nebulizers and Robitussin. She was discharged on her home O2 at 4 L nasal cannula. She was also discharged on Lovenox twice daily as well as Coumadin until her INR becomes therapeutic at 2-3 which she is on for history of PE. She says she was at home she went to get out of her car and fell and fell on her face she initially told the ER that she was short of breath and had chest pain. She has chest pain and is asking forpain medications In the ER she did have a CT scan done of her head that shows no acute intracranial finding. CTA of her chest showed no central pulmonary artery filling defects to suggest large volume PE. There is noevidence of RV strain. There was a masslike consolidation in the left lung base similar to the prior CT. She was given antibiotics in the emergency room and hospitalist were asked to admit. Cardiology hasbeen consulted from the ER also because of her chest pain and history of coronary artery disease. At the time of evaluation in the ER by the admitting physician , patient is resting on the ER stretcher. She seems anxious, asking for pain meds over and over. We discussed admission to the hospital.We also discussed that she has had multiple admissions recently and perhaps she would benefit from having some additional rehab or assistance at home and she verbalizes that she is open to this. She also was describing some abdominal cramping and some constipation. . She is currently on Lovenox twice daily until her INR is therapeutic, she thinks she forgot to take it last night-will resume and check INR daily until INR is therapeutic at 2-3. BNP 247, troponin trend flat in the 20s 11/01: awake, ox3. Sugars very high 400-500, she is currently on baseline home O2 3L, no wheezing, will hold IV steroids> p.o. today given significant hyperglycemia which can lead to complications. Noted she was recently discharged on 10/29 for on p.o. steroids for her COPD- appears she is very sensitive to steroids if she was compliant with her diabetic regiment. Follow A1c, adjusting Lantus and Humalog, recheck BMP/lactic acid. If persistent high sugars-might need to stepdown transfer with insulin gtt. PT/OT recommend home patient was transferred to the ICU 11/01 night for insulin drip. 11/02 patient received 15 units of Lantus +35 units yesterday on insulin drip started last night. Today this morning blood sugars are less than 150.. Hemoglobin A1c is pending from this admission . Echocardiogram is pending. Many medication including Jardiance and Entresto are on hold last hemoglobin A1c is 8.9, resume Entresto stop Lovenox as INR is more than 2 11/03 stop prednisone. Patient received 45 units of Lantus yesterday blood sugars of 220 this morning. Also gets 8 units three times daily along with sliding scale INR 2.4 resume Coumadin Consultants: IP CONSULT TO IV TEAM IP CONSULT TO IV TEAM IP CONSULT TO IV TEAM IP CONSULT TO IV TEAM IP CONSULT TO CASE MANAGEMENT SUBJECTIVE: Rounded with RN Angela Patient is seen resting. However says that she is not feeling good because of the pain in the shoulders after the fall at home. She fell in the hospital 2 Her breathing is much better. Resting comfortably in bed ROS: History obtained from the patient- Psychological: no Depression, Suicide ideation/thoughts Constitutional: negative for fever, chills, negative for confusion, fatigue Pulmonary: negative for dyspnea, no cough Cardiovascular: negative for chest pain, no palpitations, no orthopnea GI: negative for nausea, vomiting, diarrhea and constipation, no abdominal pain Renal: no dysuria, no hematuria Musculoskeletal: no back pain, no joint pain, no calf swelling + pain in between the shoulders Neuro: negative for headache, no vision changes, no dizziness Skin: no skin rash, no redness OBJECTIVE: Temp (24hrs), Av.1 ??F (36.7 ??C), Min:97.2 ??F (36.2 ??C), Max:98.8 ??F (37.1 ??C) BP 124/56 Pulse 74 Temp 97.7 ??F (36.5 ??C) (Oral) Resp 21 Ht 5' 4 (1.626 m) Wt 106.2 kg(234 lb 2.1 oz) SpO2 96% BMI 40.19 kg/m?? Intake/Output Summary (Last 24 hours) at 11/03/2024 0840 Last data filed at 11/03/2024 0837 Gross per 24 hour Intake 1726.92 ml Output 1975 ml Net -248.08 ml Last documented weight: Weight: 106.2 kg (234 lb 2.1 oz) (11/03/24 0400) EXAM: General: alert, in no distress chronically ill-appearing with supplemental oxygen mildly obese Neurologic: Grossly normal HEENT: atraumatic, Normocephalic, without obvious abnormality Lungs: clear to auscultation bilaterally, normal respiratory effort, no wheezing no crackles or pleurisy Heart: normal rate, regular rhythm, normal S1, S2, no murmurs, rubs, clicks or gallops Abdomen: Soft, non-tender. Bowel sounds normal. Extremities: No edema Skin: mild knee abrasion notable bruises seen on the right arm right shoulder area LABORATORY: Recent Labs 11/01/24 0401 11/02/24 0433 WBC 9.8 12.4* HGB 12.3 12.0 HCT 38.4 37.7 PLT 214 216 Recent Labs 11/01/24 0402 11/01/24 2110 11/02/24 0433 NA 136 140 142 K 4.3 4.3 3.7 CL 94* 98 101 CO2 25 22 26 CA 9.7 10.0 9.5 BUN 31* 32* 29* CREAT 0.66 1.00* 0.77 GLUCOSE 564* 521* 192* Recent Labs 11/01/24 0402 11/02/24 0433 TOTALPROTEIN 7.1 6.8 ALBUMIN 3.9 3.5 BILITOTAL 0.2 0.2 ALKPHOS 146* 126* AST 19 16 ALT 24 22 Recent Labs 11/01/24 0401 11/02/24 0433 INR 1.5* 3.2* PT 18.4* 33.7* Recent Labs 10/31/24 1353 DELTA 0 6HRTROP 24* Diagnostic testing reviewed by me: Cardiac PET scan done 02/03 that did not show reversible defect. Medications were reviewed by me. Current Facility-Administered Medications: dextrose 5 % - sodium chloride 0.9 % infusion, , IV, see admin instructions, James Lee MD dextrose 50% (D50) syringe 12.5 Gram, 12.5 Gram, IV, see admin instructions, James Lee MD dextrose 50% (D50) syringe 25 Gram, 25 Gram, IV, see admin instructions, James Lee MD glucagon HCL 1 mg/mL injection 1 mg, 1 mg, IM, see admin instructions, James Lee MD insulin glargine-yfgn injection 35 Units, 35 Units, subCUT, daily BEDTIME, James Lee MD, 35 Units at 11/02/242049 insulin lispro (HumaLOG,ADMELOG) injection 8 Units, 8 Units, subCUT, TID WITH meals, James Lee MD, 8 Units at 11/02/241649 insulin lispro (HumaLOG,ADMELOG) injection 0-12 Units, 0-12 Units, subCUT, TID WITH meals, James Lee MD, 12 Units at 11/02/241650 insulin lispro (HumaLOG,ADMELOG) injection 0-6 Units, 0-6 Units, subCUT, daily BEDTIME, James Lee MD, 4 Units at 11/02/242053 [COMPLETED] perflutren lipid microspheres (DEFINITY) 1.3 mL in sodium chloride 0.9% 10 mL injection, 0-10 mL, IV, intra-proc ONE time, Howie Sweeney MD, 2 mL at 11/02/24 0850 warfarin daily dose reminder, , Oral, daily AFTER lunch, James Lee MD morphine 4 mg/mL injection 2 mg, 2 mg, IV, every 4 hours PRN, James Lee MD, 2 mg at 11/03/24711 [COMPLETED] insulin glargine-yfgn injection 10 Units, 10 Units, subCUT, ONE time only, James Lee MD, 10 Units at 11/02/241649 [] sodium chloride 0.9 % infusion, , IV, continuous, Li Box MD, Paused at 11/02/242048 [DISCONTINUED] predniSONE (DELTASONE) tablet 40 mg, 40 mg, Oral, daily WITH breakfast, Li Box MD, 40 mg at 11/03/24711 [DISCONTINUED] sodium chloride 0.9 % infusion, , IV, continuous, Li Box MD, Stopped at 11/01/242039 nitroglycerin (NITROSTAT) tablet 0.4 mg, 0.4 mg, Sublingual, every 5 minutes PRN, Aggie Rivas DO,0.4 mg at 10/31/24 0827 sodium chloride flush injection 10 mL, 10 mL, IV, every 12 hours, Aggie Rivas DO, 10 mL at 11/03/24 0845 sodium chloride flush injection 5 mL, 5 mL, IV, see admin instructions, Aggie Rivas DO sodium chloride flush injection 10 mL, 10 mL, IV, BID, Aggie Rivas DO, 10 mL at 11/02/242048 ipratropium-albuteroL (DUONEB) 0.5 mg-3 mg(2.5 mg base)/3 mL inhalation solution 3 mL, 3 mL, Inhalation, resp, every 4 hours PRN, Danyell Dewitt MD, 3 mL at 11/02/24 1559 aspirin (CARTER CHEWABLE) chewable tablet 81 mg, 81 mg, Oral, daily, Danyell Dewitt MD, 81 mg at 11/02/24 0900 [Held by Provider] warfarin (COUMADIN) tablet 12 mg, 12 mg, Oral, daily LATE, Danyell Dewitt MD, 12 mg at 11/01/24 1706 atorvastatin (LIPITOR) tablet 40 mg, 40 mg, Oral, daily BEDTIME, Danyell Dewitt MD, 40 mg at 11/02/242047 [Held by Provider] furosemide (LASIX) tablet 80 mg, 80 mg, Oral, BID, Danyell Dewitt MD, 80 mgat 11/01/24 215 isosorbide mononitrate (IMDUR) SR 24 hour tablet 30 mg, 30 mg, Oral, daily, Danyell Dewitt MD,30 mg at 11/02/24 0858 metoprolol succinate (TOPROL XL) SR 24 hour tablet 25 mg, 25 mg, Oral, daily, Danyell Dewitt MD, 25 mg at 11/01/24 0851 ranolazine ER (RANEXA) SR 12 hour tablet 500 mg, 500 mg, Oral, every 12 hours (2 times daily), Danyell Dewitt MD, 500 mg at 11/02/24 210 sacubitriL-valsartan (ENTRESTO) 24-26 mg tablet 1 Tablet, 1 Tablet, Oral, BID, James Lee MD, 1 Tablet at 11/02/242103 albuterol sulfate 90 mcg/Actuation inhaler 2 Puff, 2 Puff, Inhalation, resp, every 6 hours PRN, Danyell Dewitt MD, 2 Puff at 11/01/24 153 OLANZapine (ZyPREXA) tablet 10 mg, 10 mg, Oral, daily BEDTIME, Danyell Dewitt MD, 10 mg at 11/02/242047 sodium chloride flush injection 10 mL, 10 mL, IV, every 12 hours (2 times daily), Danyell Dewitt MD, 10 mL at 11/02/242047 sodium chloride flush injection 10 mL, 10 mL, IV, see admin instructions, Danyell Dewitt MD sodium chloride 0.9 % flush bag 25 mL, 25 mL, IV, see admin instructions, Danyell Dewitt MD dextrose 5 % in water 250 mL flush bag 25 mL, 25 mL, IV, see admin instructions, Danyell Dewitt MD naloxone (NARCAN) 0.4 mg/mL injection 0.1-0.4 mg, 0.1-0.4 mg, IV, see admin instructions, Danyell Dewitt MD acetaminophen (TYLENOL) tablet 650 mg, 650 mg, Oral, every 6 hours PRN, Danyell Dewitt MD HYDROcodone-acetaminophen (NORCO) 10-325 mg per tablet 1 Tablet, 1 Tablet, Oral, every 4 hours PRN,Danyell Dewitt MD, 1 Tablet at 11/03/24 0521 polyethylene glycol (MIRALAX) packet 17 Gram, 17 Gram, Oral, BID PRN, Danyell Dewitt MD, 17 Gram at 11/02/242105 cefTRIAXone (ROCEPHIN) 2,000 mg in sodium chloride 0.9% 50 mL IVPB (MBP), 2,000 mg, IV, every 24 hours (daily), Danyell Dewitt MD, Stopped at 11/02/24 0918 fluticasone furoate-vilanteroL (BREO ELLIPTA) 100-25 mcg/dose inhaler 1 Puff, 1 Puff, Inhalation, resp, daily, Danyell Dewitt MD, 1 Puff at 11/03/24 0720 umeclidinium (INCRUSE ELLIPTA) 62.5 mcg/actuation inhaler 1 Puff, 1 Puff, Inhalation, resp, daily, Danyell Dewitt MD, 1 Puff at 11/03/24 0720 doxycycline hyclate (VIBRAMYCIN) 100 mg in sodium chloride 0.9% 100 mL IVPB (MBP), 100 mg, IV, every 12 hours (2 times daily), Danyell Dewitt MD, Stopped at 11/02/24 214 ticagrelor (BRILINTA) tablet 90 mg, 90 mg, Oral, BID, Danylel Dewitt MD, 90 mg at 11/02/24 210 sodium chloride flush injection 10 mL, 10 mL, IV, every 12 hours (2 times daily), Aggie Rivas DO,10 mL at 11/02/242047 sodium chloride flush injection 10 mL, 10 mL, IV, see admin instructions, Aggie Rivas DO sodium chloride 0.9 % flush bag 25 mL, 25 mL, IV, see admin instructions, Aggie Rivas DO Primary discharge diagnosis: Syncope Other active medical issues also addressed during this admission: Active Hospital Problems Diagnosis Mass of left lung Diabetes mellitus with hyperglycemia (CMS/HCC) Shortness of breath Other chest pain syncopal episode Essential hypertension Abnormal chest CT Chronic anticoagulation HFrEF (heart failure with reduced ejection fraction) ([facility]/HCC) Chronic respiratory failure with hypoxia, on home O2 therapy ([facility]/HCC) Peripheral edema NSTEMI (non-ST elevated myocardial infarction) ([facility]) History of breast cancer Chronic pain syndrome Mixed hyperlipidemia Resolved Hospital Problems No resolved problems to display. ASSESSMENT AND PLAN: Syncope Continue to monitor on telemetry CTA chest on admit-showed no PE CT head, carotid Doppler stable Transthoracic echocardiogram shows a EF of 45 to 50%. COPD exacerbation Known left lung base masslike consolidation: Needs follow-up Wean O2 per protocol CTA chest findings reviewed Continue empiric IV ceftriaxone plus doxycycline day # 5 Continue inhalers, nebs Stop steroids Follow sputum cultures if productive Need outpatient close follow-up with pulmonology next time sensitive manner Type 2 diabetes mellitus with severe hyperglycemia/without ketosis: Likely from steroids Steroids have been discontinued. She is getting 35 units of Lantus today along with 8 units 3 times daily. Hemoglobin A1c is over 10 from this admission Recent Labs 11/02/24 1602 11/02/24 2053 11/03/24 0118 11/03/24 0528 GLUCPOC 446* 331* 220* 260* Atrial flutter on chronic anticoagulation: Continue home Toprol-XL Continue home Coumadin, INR is therapeutic Chronic mildly reduced systolic and diastolic CHF: Holding Lasix Resumed back on Entresto Chronic medical problems: BPD: on home bupropion, Prozac, Ativan as needed GERD: Resume home PPI Essential hypertension: on home amlodipine, Imdur, Ranexa, Lasix is on hold Obesity BMI 37.76: Need outpatient sleep apnea eval Chronic anemia: Relatively stable Personal hx of CAD s/p stent in 2015 and 2019 : Personal hx of FIGO Stage 3 vaginal adenocarcinoma 2020: S/p PLASTIC WELDER Chronic Pain She needs PT OT DVT prophylaxis: DVT Pharmacologic Prophylaxis: enoxaparin (LOVENOX) injection 100 mg [[id number]],warfarin (COUMADIN) tablet 12 mg [[id number]] Code status: Full Code Outpatient follow up: PCP Anticipated Disposition Location: Final Discharge Disposition: Home or Self Care VS IPR Timeframe: 11/04/2024 Criteria: Blood sugar better Patient's understanding of illness: good Primary family contact: MDM complexity: [] Mild [x] Moderate [] High James Lee MD 11/03/2024, 8:40 AM * Esperanza Cota [facility] - 11/02/2024 10:14 AM CDT Images from the original note were not included. Patient educated regarding Definity ultrasound contrast and verbalizes positive understanding. Definity administered per policy. Patient free from complaints throughout procedure. [facility] PHYSICIAN ORDERS # [id number] ECHOCARDIOGRAPHY PROTOCOL FOR USE OF ECHOCARDIOGRAPHIC IMAGE ENHANCING AGENT (DEFINITY) This protocol is to be used during an Echocardiogram when a patient is technically difficult to image (as defined by [place] Society of Echocardiography guidelines - the inability to detect two or more contiguous segments in any three of the apical views) or when left ventricular thrombus is suspected. Verify consent to treat has been signed and explain the procedure to the patient. Confirm that the patient does not have a known allergy or hypersensitivity to Definity Perflutren Lipid Microspheres or its components such as polyethylene glycol (PEG). Patient indicated he was not allergic and wanted to have the contrast. Enter order for Definity into Electronic Health Record ???per protocol?? (will require interpreting aluminum can collector to sign). Trained Echo Technologists may proceed with use of echocardiographic image enhancing agent. [facility] currently utilizes Definity (perflutren lipid microspheres). Administer Definity per Echocardiography Policy and Procedure #251 Administration of Ultrasound Contrast as follows: 1.3 mL of activated Definity (perflutren lipid microspheres) diluted with 8.7 mL of preservative-free saline in a 10 mL syringe Initial injection of up to 3mL administered slowly (subsequent injection of 1 to 2 mL as needed) References: Definity Prescribing Information package insert; Revised December 2010 [email or web address] .pdf ASE Consensus Statement - [place] Society of Echocardiography Consensus Statement on the Clinical Applications of Ultrasonic Contrast Agents in Echocardiography; KEIRA, January 2008 http://www.asecho.org/files/public/ContrastConsensusStatement.pdf [email or web address] Approved by: Medication Management Committee Initiated: 07/23/2011 Revised: 07/30/2023 Expires: * James Lee MD - 11/02/2024 7:37 AM CDT Images from the original note were not included. Your life is our life's work [facility] Hospitalist/Hospital Medicine Progress Note LOS: 0 days Room/Bed: 4311/01 Patient name: Le Diaz Date of : 1965 HOSPITAL COURSE SUMMARY: Ms. Diaz is a 59 y.o. female with PMH significant for essential HTN, HLD, GERD, COPD on 3-4 L nasal cannula oxygen at home, CAD s/p coronary stent placement, CHF, HEENA/bipolar disorder, insulin-dependent diabetes mellitus, history of breast C s/p mastectomy, history of PE on anticoagulation, chronic pain syndrome, history of splenectomy, obesity and former tobacco use who was just admitted October 26 through October 29. She was discharged to home to follow-up with pulmonology in 2 weeks. During that admission she was admitted for a COPD exacerbation. She was treated with Solu-Medrol as well as nebulizers and Robitussin. She was discharged on her home O2 at 4 L nasal cannula. She was also discharged on Lovenox twice daily as well as Coumadin until her INR becomes therapeutic at 2-3 which she is on for history of PE. She says she was at home she went to get out of her car and fell and fell on her face she initially told the ER that she was short of breath and had chest pain. She has chest pain and is asking forpain medications In the ER she did have a CT scan done of her head that shows no acute intracranial finding. CTA of her chest showed no central pulmonary artery filling defects to suggest large volume PE. There is noevidence of RV strain. There was a masslike consolidation in the left lung base similar to the prior CT. She was given antibiotics in the emergency room and hospitalist were asked to admit. Cardiology hasbeen consulted from the ER also because of her chest pain and history of coronary artery disease. At the time of evaluation in the ER by the admitting physician , patient is resting on the ER stretcher. She seems anxious, asking for pain meds over and over. We discussed admission to the hospital.We also discussed that she has had multiple admissions recently and perhaps she would benefit from having some additional rehab or assistance at home and she verbalizes that she is open to this. She also was describing some abdominal cramping and some constipation. . She is currently on Lovenox twice daily until her INR is therapeutic, she thinks she forgot to take it last night-will resume and check INR daily until INR is therapeutic at 2-3. BNP 247, troponin trend flat in the 20s 8/12: awake, ox3. Sugars very high 400-500, she is currently on baseline home O2 3L, no wheezing, will hold IV steroids> p.o. today given significant hyperglycemia which can lead to complications. Noted she was recently discharged on 10/29 for on p.o. steroids for her COPD- appears she is very sensitive to steroids if she was compliant with her diabetic regiment. Follow A1c, adjusting Lantus and Humalog, recheck BMP/lactic acid. If persistent high sugars-might need to stepdown transfer with insulin gtt. PT/OT recommend home patient was transferred to the ICU 11/01 night for insulin drip. 11/02 patient received 15 units of Lantus +35 units yesterday on insulin drip started last night. Today this morning blood sugars are less than 150.. Hemoglobin A1c is pending from this admission . Echocardiogram is pending. Many medication including Jardiance and Entresto are on hold last hemoglobin A1c is 8.9, resume Entresto stop Lovenox as INR is more than 2 Consultants: IP CONSULT TO IV TEAM IP CONSULT TO IV TEAM IP CONSULT TO IV TEAM IP CONSULT TO IV TEAM IP CONSULT TO CASE MANAGEMENT SUBJECTIVE: Rounded with RN J Luis patient is seen resting. She feels best she has not felt in a long time requesting IV morphine. She wants few doses so that she can feel better. She fell prior to coming to the hospital hurting her back and between her shoulders. She has no chest pain or shortness of breath. She has no nausea vomiting abdominal pain or diarrhea. She thinks her insulin does not work. She takes 25 units of insulin long-acting Resting comfortably in bed ROS: History obtained from the patient- Psychological: no Depression, Suicide ideation/thoughts Constitutional: negative for fever, chills, negative for confusion, fatigue Pulmonary: negative for dyspnea, no cough Cardiovascular: negative for chest pain, no palpitations, no orthopnea GI: negative for nausea, vomiting, diarrhea and constipation, no abdominal pain Renal: no dysuria, no hematuria Musculoskeletal: no back pain, no joint pain, no calf swelling + pain in between the shoulders Neuro: negative for headache, no vision changes, no dizziness Skin: no skin rash, no redness OBJECTIVE: Temp (24hrs), Av.8 ??F (36.6 ??C), Min:97.1 ??F (36.2 ??C), Max:98.3 ??F (36.8 ??C) BP 128/78 (Patient Position (BP): Sitting) Pulse 75 Temp 98.1 ??F (36.7 ??C) (Axillary) Resp 25 Ht 5' 4 (1.626 m) Wt 99.7 kg (219 lb 12.8 oz) SpO2 93% BMI 37.73 kg/m?? Intake/Output Summary (Last 24 hours) at 11/02/2024 09 Last data filed at 11/02/2024 0612 Gross per 24 hour Intake 2655.49 ml Output 3350 ml Net -694.51 ml Last documented weight: Weight: 99.7 kg (219 lb 12.8 oz) (11/02/24 0500) EXAM: General: alert, in no distress chronically ill-appearing with supplemental oxygen mildly obese Neurologic: Grossly normal HEENT: atraumatic, Normocephalic, without obvious abnormality Lungs: clear to auscultation bilaterally, normal respiratory effort, no wheezing no crackles or pleurisy Heart: normal rate, regular rhythm, normal S1, S2, no murmurs, rubs, clicks or gallops Abdomen: Soft, non-tender. Bowel sounds normal. Extremities: No edema Skin: mild knee abrasion LABORATORY: Recent Labs 10/31/24 0308 11/01/24 04011/02/24 0433 WBC 7.0 9.8 12.4* HGB 8.9* 12.3 12.0 HCT 28.6* 38.4 37.7 PLT 146 214 216 Recent Labs 10/31/24 01111/01/24 04011/01/24210911/02/24 0433 NA 139 136 140 142 K 4.1 4.3 4.3 3.7 CL 99 94* 98 101 CO2 28 25 22 26 CA 9.4 9.7 10.0 9.5 BUN 28* 31* 32* 29* CREAT 0.69 0.66 1.00* 0.77 GLUCOSE 399* 564* 521* 192* Recent Labs 10/31/24 0111 11/01/24 0402 11/02/24 0433 TOTALPROTEIN 6.5 7.1 6.8 ALBUMIN 3.6 3.9 3.5 BILITOTAL 0.2 0.2 0.2 ALKPHOS 128* 146* 126* AST 15 19 16 ALT 19 24 22 Recent Labs 10/31/24 0807 11/01/24 0401 11/02/24 0433 INR 1.6* 1.5* 3.2* PT 19.6* 18.4* 33.7* Recent Labs 10/31/24 0111 10/31/24 0807 10/31/24 1353 BASETROP 24* -- -- 2HRTROP -- 26* -- DELTA -- 2 0 6HRTROP -- -- 24* Diagnostic testing reviewed by me: Cardiac PET scan done 02/03 that did not show reversible defect. Medications were reviewed by me. Current Facility-Administered Medications: dextrose 5 % - sodium chloride 0.9 % infusion, , IV, see admin instructions, James Lee MD dextrose 50% (D50) syringe 12.5 Gram, 12.5 Gram, IV, see admin instructions, James Lee MD dextrose 50% (D50) syringe 25 Gram, 25 Gram, IV, see admin instructions, James Lee MD glucagon HCL 1 mg/mL injection 1 mg, 1 mg, IM, see admin instructions, James Lee MD insulin glargine-yfgn injection 35 Units, 35 Units, subCUT, daily BEDTIME, James Lee MD insulin lispro (HumaLOG,ADMELOG) injection 8 Units, 8 Units, subCUT, TID WITH meals, James Lee MD insulin lispro (HumaLOG,ADMELOG) injection 0-12 Units, 0-12 Units, subCUT, TID WITH meals, James Lee MD insulin lispro (HumaLOG,ADMELOG) injection 0-6 Units, 0-6 Units, subCUT, daily BEDTIME, James Lee MD predniSONE (DELTASONE) tablet 40 mg, 40 mg, Oral, daily WITH breakfast, Li Box MD, 40 mg at 11/02/24 0859 [COMPLETED] insulin glargine-yfgn injection 35 Units, 35 Units, subCUT, ONE time only, Li Box MD, 35 Units at 11/01/24 2200 sodium chloride 0.9 % infusion, , IV, continuous, Li Box MD, Last Rate: 50 mL/hr at 11/02/24 0612, Rate Verify at 11/02/24 0612 [COMPLETED] insulin regular (HumuLIN R;NovoLIN R) bolus from infusion 0-4 Units, 0-4 Units, IV, ONEtime only, Li Box MD, 4 Units at 11/02/24 0125 [DISCONTINUED] insulin glargine-yfgn injection 15 Units, 0.15 Units/kg, subCUT, daily WITH breakfast, Li Box MD, 15 Units at 11/01/24 0849 [DISCONTINUED] insulin lispro (HumaLOG,ADMELOG) injection 7 Units, 7 Units, subCUT, TID WITH meals,Li Box MD, 7 Units at 11/01/24 1638 [DISCONTINUED] sodium chloride 0.9 % infusion, , IV, continuous, Li Box MD, Stopped at 11/01/24 204 [DISCONTINUED] insulin glargine-yfgn injection 28 Units, 28 Units, subCUT, daily BEDTIME, Li Box MD [DISCONTINUED] insulin glargine-yfgn injection 28 Units, 28 Units, subCUT, daily BEDTIME, Li Box MD [DISCONTINUED] insulin regular (HumuLIN R,NovoLIN R) 1 Units/mL in sodium chloride 0.9 % infusion, 0-25 Units/hr, IV, titrate, Li Box MD, Stopped at 11/02/24 0810 [DISCONTINUED] dextrose 5 % - sodium chloride 0.9 % infusion, , IV, see admin instructions, Li Box MD [DISCONTINUED] dextrose 50% (D50) syringe 12.5 Gram, 12.5 Gram, IV, see admin instructions, Li Box MD [DISCONTINUED] dextrose 50% (D50) syringe 25 Gram, 25 Gram, IV, see admin instructions, Li Box MD [DISCONTINUED] glucagon HCL 1 mg/mL injection 1 mg, 1 mg, IM, see admin instructions, Li Box MD nitroglycerin (NITROSTAT) tablet 0.4 mg, 0.4 mg, Sublingual, every 5 minutes PRN, Aggie Rivas DO,0.4 mg at 10/31/24 0827 sodium chloride flush injection 10 mL, 10 mL, IV, every 12 hours, Aggie Rivas DO, 10 mL at 11/01/24 0746 sodium chloride flush injection 5 mL, 5 mL, IV, see admin instructions, Aggie Rivas DO sodium chloride flush injection 10 mL, 10 mL, IV, BID, Aggie Rivas DO, 10 mL at 11/01/241 ipratropium-albuteroL (DUONEB) 0.5 mg-3 mg(2.5 mg base)/3 mL inhalation solution 3 mL, 3 mL, Inhalation, resp, every 4 hours PRN, Danyell Dewitt MD, 3 mL at 11/01/24 1218 aspirin (CARTER CHEWABLE) chewable tablet 81 mg, 81 mg, Oral, daily, Danyell Dewitt MD, 81 mg at 11/02/24 0900 warfarin (COUMADIN) tablet 12 mg, 12 mg, Oral, daily LATE, Danyell Dewitt MD, 12 mg at 11/01/24 1706 atorvastatin (LIPITOR) tablet 40 mg, 40 mg, Oral, daily BEDTIME, Danyell Dewitt MD, 40 mg at 11/01/242150 [Held by Provider] furosemide (LASIX) tablet 80 mg, 80 mg, Oral, BID, Danyell Dewitt MD, 80 mgat 11/01/242150 isosorbide mononitrate (IMDUR) SR 24 hour tablet 30 mg, 30 mg, Oral, daily, Danyell Dewitt MD,30 mg at 11/02/24 08 metoprolol succinate (TOPROL XL) SR 24 hour tablet 25 mg, 25 mg, Oral, daily, Danyell Dewitt MD, 25 mg at 11/01/24 0851 ranolazine ER (RANEXA) SR 12 hour tablet 500 mg, 500 mg, Oral, every 12 hours (2 times daily), Danyell eDwitt MD, 500 mg at 11/02/24 0858 sacubitriL-valsartan (ENTRESTO) 24-26 mg tablet 1 Tablet, 1 Tablet, Oral, BID, James Lee MD, 1 Tablet at 11/01/242150 albuterol sulfate 90 mcg/Actuation inhaler 2 Puff, 2 Puff, Inhalation, resp, every 6 hours PRN, Danyell Dewitt MD, 2 Puff at 11/01/24 1536 OLANZapine (ZyPREXA) tablet 10 mg, 10 mg, Oral, daily BEDTIME, Danyell Dewitt MD, 10 mg at 11/01/24 215 sodium chloride flush injection 10 mL, 10 mL, IV, every 12 hours (2 times daily), Danyell Dewitt MD, 10 mL at 11/01/24 220 sodium chloride flush injection 10 mL, 10 mL, IV, see admin instructions, Danyell Dewitt MD sodium chloride 0.9 % flush bag 25 mL, 25 mL, IV, see admin instructions, Danyell Dewitt MD dextrose 5 % in water 250 mL flush bag 25 mL, 25 mL, IV, see admin instructions, Danyell Dewitt MD naloxone (NARCAN) 0.4 mg/mL injection 0.1-0.4 mg, 0.1-0.4 mg, IV, see admin instructions, Danyell Dewitt MD acetaminophen (TYLENOL) tablet 650 mg, 650 mg, Oral, every 6 hours PRN, Danyell Dewitt MD HYDROcodone-acetaminophen (NORCO) 10-325 mg per tablet 1 Tablet, 1 Tablet, Oral, every 4 hours PRN,Danyell Dewitt MD, 1 Tablet at 11/02/24 0741 polyethylene glycol (MIRALAX) packet 17 Gram, 17 Gram, Oral, BID PRN, Danyell Dewitt MD cefTRIAXone (ROCEPHIN) 2,000 mg in sodium chloride 0.9% 50 mL IVPB (MBP), 2,000 mg, IV, every 24 hours (daily), Danyell Dewitt MD, Stopped at 11/02/24 0918 fluticasone furoate-vilanteroL (BREO ELLIPTA) 100-25 mcg/dose inhaler 1 Puff, 1 Puff, Inhalation, resp, daily, Danyell Dewitt MD, 1 Puff at 11/02/24 0904 umeclidinium (INCRUSE ELLIPTA) 62.5 mcg/actuation inhaler 1 Puff, 1 Puff, Inhalation, resp, daily, Danyell Dewitt MD, 1 Puff at 11/02/24 0904 doxycycline hyclate (VIBRAMYCIN) 100 mg in sodium chloride 0.9% 100 mL IVPB (MBP), 100 mg, IV, every 12 hours (2 times daily), Danyell Dewitt MD, Stopped at 11/01/24 2254 ticagrelor (BRILINTA) tablet 90 mg, 90 mg, Oral, BID, Danyell Dewitt MD, 90 mg at 11/02/24 0900 [DISCONTINUED] enoxaparin (LOVENOX) injection 100 mg, 100 mg, subCUT, every 12 hours, Danyell Dewitt MD, 100 mg at 11/01/24 2304 [DISCONTINUED] morphine 4 mg/mL injection 2 mg, 2 mg, IV, every 4 hours PRN, Danyell Dewitt MD, 2 mg at 11/02/24 0256 [DISCONTINUED] methylPREDNISolone sodium succinate (SOLU-Medrol) 40 mg in sterile water 1 mL injection, 40 mg, IV, every 8 hours, Danyell Dewitt MD, 40 mg at 11/01/24 0531 [DISCONTINUED] dextrose 5 % - sodium chloride 0.9 % infusion, , IV, see admin instructions, Danyell Dewitt MD [DISCONTINUED] dextrose 50% (D50) syringe 12.5 Gram, 12.5 Gram, IV, see admin instructions, Danyell Dewitt MD [DISCONTINUED] dextrose 50% (D50) syringe 25 Gram, 25 Gram, IV, see admin instructions, Danyell Dewitt MD [DISCONTINUED] glucagon HCL 1 mg/mL injection 1 mg, 1 mg, IM, see admin instructions, Danyell Dewitt MD [DISCONTINUED] insulin glargine-yfgn injection 20 Units, 20 Units, subCUT, daily BEDTIME, Danyell Dewitt MD, 20 Units at 10/31/24 204 [DISCONTINUED] insulin lispro (HumaLOG,ADMELOG) injection 0-12 Units, 0-12 Units, subCUT, TID WITH meals, Danyell Dewitt MD, 12 Units at 11/01/24 1637 [DISCONTINUED] insulin lispro (HumaLOG,ADMELOG) injection 0-3 Units, 0-3 Units, subCUT, daily BEDTIME, Danyell Dewitt MD, 3 Units at 11/01/24 2200 sodium chloride flush injection 10 mL, 10 mL, IV, every 12 hours (2 times daily), Aggie Rivas DO,10 mL at 11/01/24 0852 sodium chloride flush injection 10 mL, 10 mL, IV, see admin instructions, Aggie Rivas DO sodium chloride 0.9 % flush bag 25 mL, 25 mL, IV, see admin instructions, Aggie Rivas DO [DISCONTINUED] dextrose 5 % in water 250 mL flush bag 25 mL, 25 mL, IV, see admin instructions, Aggie Rivas DO Primary discharge diagnosis: Syncope Other active medical issues also addressed during this admission: Active Hospital Problems Diagnosis Mass of left lung Diabetes mellitus with hyperglycemia ([facility]) Shortness of breath Other chest pain syncopal episode Essential hypertension Abnormal chest CT Chronic anticoagulation HFrEF (heart failure with reduced ejection fraction) ([facility]) Chronic respiratory failure with hypoxia, on home O2 therapy ([facility]) Peripheral edema NSTEMI (non-ST elevated myocardial infarction) ([facility]) History of breast cancer Chronic pain syndrome Mixed hyperlipidemia Resolved Hospital Problems No resolved problems to display. ASSESSMENT AND PLAN: Syncope Continue to monitor on telemetry Check orthostats CTA chest on admit-showed no PE CT head, carotid Doppler stable Follow TTE COPD exacerbation Known left lung base masslike consolidation: Needs follow-up Wean O2 per protocol CTA chest findings reviewed Continue empiric IV ceftriaxone plus doxycycline day # 4/5 Continue inhalers, nebs Will wean IV steroids> p.o. prednisone on p.o. prednisone. Or tomorrow Follow sputum cultures if productive Need outpatient close follow-up with pulmonology next time sensitive manner Type 2 diabetes mellitus with severe hyperglycemia/without ketosis: Likely from steroids Steroids have been decreased. Patient got 15+32 units yesterday. Stop the insulin drip today. Changed to 35 units at bedtime along with the Premeal. Recent Labs 11/02/24 0406 11/02/24 0515 11/02/24 0613 11/02/24 0719 GLUCPOC 212* 170* 156* 111* Atrial flutter on chronic anticoagulation: Continue home Toprol-XL Continue home Coumadin, INR is therapeutic stop lovenox Chronic diastolic CHF: Holding Lasix Resume Entresto Chronic medical problems: BPD: on home bupropion, Prozac, Ativan as needed GERD: Resume home PPI Essential hypertension: on home amlodipine, Imdur, Ranexa, Lasix is on hold Obesity BMI 37.76: Need outpatient sleep apnea eval Chronic anemia: Relatively stable Personal hx of CAD s/p stent in 2016 and 2019 : Personal hx of FIGO Stage 3 vaginal adenocarcinoma 2020: S/p PLASTIC WELDER Chronic Pain DVT prophylaxis: DVT Pharmacologic Prophylaxis: enoxaparin (LOVENOX) injection 100 mg [[id number]],warfarin (COUMADIN) tablet 12 mg [[id number]] Code status: Full Code Outpatient follow up: PCP Anticipated Disposition Location: Final Discharge Disposition: Home or Self Care Timeframe: 11/03/2024 Criteria:Needs ECHO and Labs , HB A 1 C Patient's understanding of illness: good Primary family contact: MDM complexity: [] Mild [x] Moderate [] High James Lee MD 11/02/2024, 9:21 AM * Zara Camejo RN - 11/02/2024 12:31 AM CDT Report called to 4E. Patient being transferred due to elevated blood sugars and needing insulin drip. * Li Box MD - 11/01/2024 11:12 PM CDT Recent Labs 11/01/24 0731 11/01/24 1129 11/01/24 1635 11/01/24 2158 GLUCPOC 476* 473* 462* 402* Sugars very high persistent 400-500s- suspect she is very sensitive of steroids, - already tapering Recheck labs showed no DKA/ Lactate high 4.6 , osmololity high 324- @ risk for dehydration CR uptrending- hold lasix, entresto, add gentle ivf, watching for fluid overload Transfer to step down for insulin gtt and close monitoring for high sugars D/W RN and pharmacist * Li Box MD - 11/01/2024 6:56 PM CDT Images from the original note were not included. Your life is our life's work [facility] Hospitalist/[facility] Progress Note LOS: 0 days Room/Bed: 4124 Patient name: Le Diaz Date of : 1965 HOSPITAL COURSE SUMMARY: Ms. Diaz is a 59 y.o. female with PMH significant for essential HTN, HLD, GERD, COPD on 3-4 L nasal cannula oxygen at home, CAD s/p coronary stent placement, CHF, HEENA/bipolar disorder, insulin-dependent diabetes mellitus, history of breast C s/p mastectomy, history of PE on anticoagulation, chronic pain syndrome, history of splenectomy, obesity and former tobacco use who was just admitted October 26 through October 29. She was discharged to home to follow-up with pulmonology in 2 weeks. During that admission she was admitted for a COPD exacerbation. She was treated with Solu-Medrol as well as nebulizers and Robitussin. She was discharged on her home O2 at 4 L nasal cannula. She was also discharged on Lovenox twice daily as well as Coumadin until her INR becomes therapeutic at 2-3 which she is on for history of PE. She says she was at home she went to get out of her car and fell and fell on her face she initially told the ER that she was short of breath and had chest pain. She is still describing chest pain and is asking for pain medications In the ER she did have a CT scan done of her head that shows no acute intracranial finding. CTA of her chest showed no central pulmonary artery filling defects to suggest large volume PE. There is noevidence of RV strain. There was a masslike consolidation in the left lung base similar to the prior CT. She was given antibiotics in the emergency room and hospitalist were asked to admit. Cardiology hasbeen consulted from the ER also because of her chest pain and history of coronary artery disease. Hospitalists have been asked to admit. I spoke to the ER physician in person and discussed the current ER course. At the time of my evaluation in the ER, patient is resting on the ER stretcher. She seems anxious, asking for pain meds over and over. We discussed admission to the hospital. We also discussed that she has had multiple admissions recently and perhaps she would benefit from having some additional rehab or assistance at home and she verbalizes that she is open to this. She also was describing some abdominal cramping and some constipation. We have ordered PRNs for cristian well. She is currently on Lovenox twice daily until her INR is therapeutic, she thinks she forgot to take it last night-will resume and check INR daily until INR is therapeutic at 2-3. BNP 247, troponin trend flat in the 20s 8: awake, ox3. Sugars very high 400-500, she is currently on baseline home O2 3L, no wheezing, will hold IV steroids> p.o. today given significant hyperglycemia which can lead to complications. Noted she was recently discharged on 10/29 for on p.o. steroids for her COPD- appears she is very sensitive to steroids if she was compliant with her diabetic regiment. Follow A1c, adjusting Lantus and Humalog, recheck BMP/lactic acid. If persistent high sugars-might need to stepdown transfer with insulin gtt. PT/OT recommend home Consultants: IP CONSULT TO IV TEAM IP CONSULT TO IV TEAM IP CONSULT TO IV TEAM IP CONSULT TO IV TEAM IP CONSULT TO CASE MANAGEMENT SUBJECTIVE: Rounded with RN Vianca Resting comfortably in bed Discussed on high sugars and COPD ROS: History obtained from the patient- Psychological: no Depression, Suicide ideation/thoughts Constitutional: negative for fever, [...] skin rash, no redness OBJECTIVE: Temp (24hrs), Av.4 ??F (36.3 ??C), Min:97 ??F (36.1 ??C), Max:97.7 ??F (36.5 ??C) BP 133/68 Pulse 89 Temp 97.7 ??F (36.5 ??C) (Temporal) Resp 24 Ht 5' 4 (1.626 m) Wt 97 kg (213 lb 13.5 oz) SpO2 98% BMI 36.71 kg/m?? Intake/Output Summary (Last 24 hours) at 11/01/2024 1856 Last data filed at 11/01/2024 1818 Gross per 24 hour Intake 2090 ml Output 3653 ml Net -1563 ml Last documented weight: Weight: 97 kg (213 lb 13.5 oz) (11/01/24 0507) EXAM: General: alert, in no distress Neurologic: Grossly normal HEENT: atraumatic, Normocephalic, without obvious abnormality Lungs: clear to auscultation bilaterally, normal respiratory effort, no wheezing Heart: normal rate, regular rhythm, normal S1, S2, no murmurs, rubs, clicks or gallops Abdomen: Soft, non-tender. Bowel sounds normal. Extremities: No edema Skin: mild knee abrasion with some bleeding LABORATORY: Recent Labs 10/29/24 2144 10/31/24 0308 11/01/24 0401 WBC 9.5 7.0 9.8 HGB 12.2 8.9* 12.3 HCT 38.4 28.6* 38.4 PLT 207 146 214 Recent Labs 10/29/24201710/31/24 0111 11/01/24 0402 NA 136 139 136 K 4.5 4.1 4.3 CL 94* 99 94* CO2 27 28 25 CA 9.6 9.4 9.7 BUN 35* 28* 31* CREAT 0.85 0.69 0.66 GLUCOSE 551* 399* 564* Recent Labs 10/29/24201710/31/24 0111 11/01/24 0402 TOTALPROTEIN 7.5 6.5 7.1 ALBUMIN 4.0 3.6 3.9 BILITOTAL <0.2 0.2 0.2 ALKPHOS 158* 128* 146* AST 31 15 19 ALT 24 19 24 Recent Labs 10/31/24 0811/01/24 0401 INR 1.6* 1.5* PT 19.6* 18.4* Recent Labs 10/31/24 01110/31/24 0810/31/24 1353 BASETROP 24* -- -- 2HRTROP -- 26* -- DELTA -- 2 0 6HRTROP -- -- 24* Diagnostic testing reviewed by me: Medications were reviewed by me. Current Facility-Administered Medications: [COMPLETED] insulin regular (HumuLIN R,NovoLIN R) injection 10 Units, 10 Units, IV, ONE time only, Tiffanie Dawn, [place], 10 Units at 11/01/24 0353 insulin glargine-yfgn injection 15 Units, 0.15 Units/kg, subCUT, daily WITH breakfast, Li Box MD, 15 Units at 11/01/24 0849 insulin lispro (HumaLOG,ADMELOG) injection 7 Units, 7 Units, subCUT, TID WITH meals, Li Box MD, 7 Units at 11/01/24 1638 predniSONE (DELTASONE) tablet 40 mg, 40 mg, Oral, daily WITH breakfast, Li Box MD, 40 mg at 11/01/24 1126 sodium chloride 0.9 % infusion, , IV, continuous, Li Box MD, Last Rate: 50 mL/hr at 11/01/24 1235, New Bag at 11/01/24 1235 insulin glargine-yfgn injection 28 Units, 28 Units, subCUT, daily BEDTIME, Li Box MD nitroglycerin (NITROSTAT) tablet 0.4 mg, 0.4 mg, Sublingual, every 5 minutes PRN, Aggie Rivas DO,0.4 mg at 10/31/24 0827 sodium chloride flush injection 10 mL, 10 mL, IV, every 12 hours, Sammie Rivastmao DO, 10 mL at 11/01/24 0746 sodium chloride flush injection 5 mL, 5 mL, IV, see admin instructions, Evelyn Aggie, DO sodium chloride flush injection 10 mL, 10 mL, IV, BID, Evelyn Aggie, DO, 10 mL at 11/01/24 0852 ipratropium-albuteroL (DUONEB) 0.5 mg-3 mg(2.5 mg base)/3 mL inhalation solution 3 mL, 3 mL, Inhalation, resp, every 4 hours PRN, Danyell Dewitt MD, 3 mL at 11/01/24 1218 aspirin (CARTER CHEWABLE) chewable tablet 81 mg, 81 mg, Oral, daily, Danyell Dewitt MD, 81 mg at 11/01/24 08 enoxaparin (LOVENOX) injection 100 mg, 100 mg, subCUT, every 12 hours, Danyell Dewitt MD, 100 mg at 11/01/24 1126 warfarin (COUMADIN) tablet 12 mg, 12 mg, Oral, daily LATE, Danyell Dewitt MD, 12 mg at 11/01/24 1706 atorvastatin (LIPITOR) tablet 40 mg, 40 mg, Oral, daily BEDTIME, Danyell Dewitt MD, 40 mg at 10/31/242040 furosemide (LASIX) tablet 80 mg, 80 mg, Oral, BID, Danyell Dewitt MD, 80 mg at 11/01/24850 isosorbide mononitrate (IMDUR) SR 24 hour tablet 30 mg, 30 mg, Oral, daily, Danyell Dewitt MD,30 mg at 11/01/24 08 metoprolol succinate (TOPROL XL) SR 24 hour tablet 25 mg, 25 mg, Oral, daily, Danyell Dewitt MD, 25 mg at 11/01/24850 ranolazine ER (RANEXA) SR 12 hour tablet 500 mg, 500 mg, Oral, every 12 hours (2 times daily), Danyell Dewitt MD, 500 mg at 11/01/24850 sacubitriL-valsartan (ENTRESTO) 24-26 mg tablet 1 Tablet, 1 Tablet, Oral, BID, Danyell Dewitt MD, 1 Tablet at 11/01/24 0851 albuterol sulfate 90 mcg/Actuation inhaler 2 Puff, 2 Puff, Inhalation, resp, every 6 hours PRN, Danyell Dewitt MD, 2 Puff at 11/01/24 153 OLANZapine (ZyPREXA) tablet 10 mg, 10 mg, Oral, daily BEDTIME, Danyell Dewitt MD, 10 mg at 10/31/242040 sodium chloride flush injection 10 mL, 10 mL, IV, every 12 hours (2 times daily), Danyell Dewitt MD, 10 mL at 11/01/24 08 sodium chloride flush injection 10 mL, 10 mL, IV, see admin instructions, Danyell Dewitt MD sodium chloride 0.9 % flush bag 25 mL, 25 mL, IV, see admin instructions, Danyell Dewitt MD dextrose 5 % in water 250 mL flush bag 25 mL, 25 mL, IV, see admin instructions, Danyell Dewitt MD naloxone (NARCAN) 0.4 mg/mL injection 0.1-0.4 mg, 0.1-0.4 mg, IV, see admin instructions, Danyell Dewitt MD acetaminophen (TYLENOL) tablet 650 mg, 650 mg, Oral, every 6 hours PRN, Danyell Dewitt MD morphine 4 mg/mL injection 2 mg, 2 mg, IV, every 4 hours PRN, Danyell Dewitt MD, 2 mg at 11/01/24 1809 HYDROcodone-acetaminophen (NORCO) 10-325 mg per tablet 1 Tablet, 1 Tablet, Oral, every 4 hours PRN,Danyell Dewitt MD, 1 Tablet at 11/01/24 1536 polyethylene glycol (MIRALAX) packet 17 Gram, 17 Gram, Oral, BID PRN, Danyell Dewitt MD cefTRIAXone (ROCEPHIN) 2,000 mg in sodium chloride 0.9% 50 mL IVPB (MBP), 2,000 mg, IV, every 24 hours (daily), Danyell Dewitt MD, Stopped at 11/01/24 0931 dextrose 5 % - sodium chloride 0.9 % infusion, , IV, see admin instructions, Danyell Dewitt MD dextrose 50% (D50) syringe 12.5 Gram, 12.5 Gram, IV, see admin instructions, Danyell Dewitt MD dextrose 50% (D50) syringe 25 Gram, 25 Gram, IV, see admin instructions, Danyell Dewitt MD glucagon HCL 1 mg/mL injection 1 mg, 1 mg, IM, see admin instructions, Danyell Dewitt MD insulin lispro (HumaLOG,ADMELOG) injection 0-12 Units, 0-12 Units, subCUT, TID WITH meals, Danyell Dewitt MD, 12 Units at 11/01/24 1637 insulin lispro (HumaLOG,ADMELOG) injection 0-3 Units, 0-3 Units, subCUT, daily BEDTIME, Danyell Dewitt MD, 3 Units at 10/31/242053 fluticasone furoate-vilanteroL (BREO ELLIPTA) 100-25 mcg/dose inhaler 1 Puff, 1 Puff, Inhalation, resp, daily, Danyell Dewitt MD, 1 Puff at 11/01/24 0738 umeclidinium (INCRUSE ELLIPTA) 62.5 mcg/actuation inhaler 1 Puff, 1 Puff, Inhalation, resp, daily, Danyell Dewitt MD, 1 Puff at 11/01/24 0738 doxycycline hyclate (VIBRAMYCIN) 100 mg in sodium chloride 0.9% 100 mL IVPB (MBP), 100 mg, IV, every 12 hours (2 times daily), Danyell Dewitt MD, Stopped at 11/01/24 1036 ticagrelor (BRILINTA) tablet 90 mg, 90 mg, Oral, BID, Danyell Dewitt MD, 90 mg at 11/01/24 0851 [COMPLETED] insulin lispro (HumaLOG,ADMELOG) injection 3 Units, 3 Units, subCUT, ONE time only, Tiffanie Dawn, ELECTRICAL ACCESSORIES ASSEMBLER, 3 Units at 10/31/242121 [DISCONTINUED] methylPREDNISolone sodium succinate (SOLU-Medrol) 40 mg in sterile water 1 mL injection, 40 mg, IV, every 8 hours, Danyell Dewitt MD, 40 mg at 11/01/24 0531 [DISCONTINUED] insulin glargine-yfgn injection 20 Units, 20 Units, subCUT, daily BEDTIME, Danyell Dewitt MD, 20 Units at 10/31/24 204 sodium chloride flush injection 10 mL, 10 mL, IV, every 12 hours (2 times daily), Aggie Rivas DO,10 mL at 11/01/24 0852 sodium chloride flush injection 10 mL, 10 mL, IV, see admin instructions, Aggie Rivas DO sodium chloride 0.9 % flush bag 25 mL, 25 mL, IV, see admin instructions, Aggie Rivas DO dextrose 5 % in water 250 mL flush bag 25 mL, 25 mL, IV, see admin instructions, Aggie Rivas DO Primary discharge diagnosis: Syncope Other active medical issues also addressed during this admission: Active Hospital Problems Diagnosis Mixed hyperlipidemia Chronic anticoagulation HFrEF (heart failure with reduced ejection fraction) ([facility]) Chronic respiratory failure with hypoxia, on home O2 therapy ([facility]) Peripheral edema NSTEMI (non-ST elevated myocardial infarction) ([facility]) History of breast cancer Chronic pain syndrome Shortness of breath Other chest pain syncopal episode Essential hypertension Abnormal chest CT Resolved Hospital Problems No resolved problems to display. ASSESSMENT AND PLAN: A&p: Syncope Continue to monitor on telemetry Check orthostats CTA chest on admit-showed no PE CT head, carotid Doppler stable Follow TTE COPD exacerbation Known left lung base masslike consolidation: Wean O2 per protocol CTA chest findings reviewed Continue empiric IV ceftriaxone plus doxycycline Continue inhalers, nebs Will wean IV steroids> p.o. prednisone Follow sputum cultures if productive Need outpatient close follow-up with pulmonology next time sensitive manner Type 2 diabetes mellitus with severe hyperglycemia/without ketosis: Likely from steroids Tapering steroids Titrating Lantus 15+28, prandial insulin with sliding scale Recheck BMP now, lactic acid, osmolality Recent Labs 11/01/24 0429 11/01/24 0731 11/01/24 1129 11/01/24 1635 GLUCPOC 493* 476* 473* 462* Atrial flutter on chronic anticoagulation: Continue home Toprol-XL Continue home Coumadin, INR 1.5 today subtherapeutic ? Perosnal hx of PE Currently on Lovenox bridging started on admit Chronic diastolic CHF: Continue p.o. Lasix 80 twice daily Chronic medical problems: BPD: Resume home bupropion, Prozac, Ativan as needed GERD: Resume home PPI Essential hypertension: Resume home amlodipine, Imdur, Ranexa, Lasix Obesity BMI 37.76: Need outpatient sleep apnea eval Chronic anemia: Relatively stable Personal hx of CAD s/p stent in 2016 and 2019 : Resume home medicines, she has recent stress test amonth ago which came back stable Personal hx of FIGO Stage 3 vaginal adenocarcinoma 2020: S/p PLASTIC WELDER Nutrition Status: Malnutrition Nutrition Diagnosis: Limited findings, Unable to diagnose with malnutrition at this time Provider Assessment/Plan: Symptoms/Signs/Physical Exam: Weakness and Fatigue Etiology: Uncontrolled diabetes, Physiological causes increasing nutrient needs, and Recurrent hospitalization with decreased oral intake Nutrition Treatment Plan: - Current Diet and/or Nutritional Supplementation ordered: DIET DIABETIC - Daily weights Impact of Malnutrition on patient condition and outcomes: Increased muscle weakness and fall risk, Respiratory deterioration, Skin breakdown, Decreased bone health and healing, and Increased hospitalization length DVT prophylaxis: DVT Pharmacologic Prophylaxis: enoxaparin (LOVENOX) injection 100 mg [[id number]],warfarin (COUMADIN) tablet 12 mg [[id number]] Code status: Full Code Outpatient follow up: PCP Anticipated Disposition Location: Final Discharge Disposition: Home or Self Care Timeframe: 11/03/2024 Criteria: Hyperglycemia control, stable labs Patient's understanding of illness: good Primary family contact: MDM complexity: [] Mild [x] Moderate [] High Li Anderson MD 11/01/2024, 6:56 PM * Adelaida Melendrez RD - 11/01/2024 3:01 PM CDT Reason For Nutrition Assessment: Previous Malnutrition Dx, Nutrition Diagnosis Malnutrition Nutrition Diagnosis: Limited findings, Unable to diagnose with malnutrition at this time (11/01/241454) In the context of: Acute Illness/Injury Problem: No nutrition diagnosis at this time (11/01/241454) Interventions/Recommendations: Encourage adequate po intake Nutrition Interventions: Encourage adequate intake;Encourage fluids (11/01/241454) Goals: 75-100% of meals and Tolerate nutrition source Monitoring/Evaluation: po intake, weight trends, labs Nutrition Discharge Plan: Carb controlled diet See below for full assessment Assessment 59 y.o.female admitted with Syncope. PMH significant for essential HTN, HLD, GERD, COPD on 3-4 L nasal cannula oxygen at home, CAD s/p coronary stent placement, CHF, HEENA/bipolar disorder, insulin-dependent diabetes mellitus, history of breast C s/p mastectomy, history of PE on anticoagulation, chronic pain syndrome, history of splenectomy, obesity and former tobacco use who was just admitted October 26 through October 29. Food and Nutrition Related History: Pt reports no problems with po intake. States her appetite is okay. Graphics show 100% po intake for all meals. Typically has three meals with some snacks a day. No known food allergies. Weight changes: Graphics show weight fluctuations over the past month from 202 lbs to 230 lbs. Subjective Global Assessment: Weight: During the past 2 weeks the patient's weight has: Not Changed (11/01/241454) Food Intake: Compared to normal intake, over the past month the patient's intake has been: Unchanged (11/01/241454) Symptoms: Patient reports the following problems that have kept them from eating enough during the past 2 weeks: No problems eating (11/01/241454) Activities & Function: Over the past month the patient generally rates their activity as: : Notnormal energy but fairly normal activities (11/01/241454) Total score = SGA Score : 1 (11/01/241454) Nutrition Focused Exam Physical Findings- Summary: Malnutrition Nutrition Diagnosis: Limited findings, Unable to diagnose with malnutrition at this time (11/01/241454) Orbital: Slightly bulged fat pads (no findings) (11/01/241454) Facial cheeks (buccal pads): Full, round, filled out (no findings) (11/01/241454) Biceps and triceps: Ample or thick fold of fat tissue between fingers (no findings) (11/01/241454) Ribs - lower back, mid axillary line: Chest is full, round, ribs do not show (no findings) (11/01/241454) Subcutaneous Fat Loss Assessment: No findings (11/01/241454) Temporal: Slight depression or shadowing (mild) (11/01/241454) Clavicle: May be visible but not prominent (no findings) (11/01/241454) Shoulder (deltoid muscle): Rounded, curved at junction between neck and shoulder, and at shoulder joint. Able to grasp muscle tissue at shoulder joint (no findings) (11/01/241454) Scapula: Unable to assess (11/01/241454) Interosseous: Muscle bulges (no findings) (11/01/241454) Thigh (quadriceps muscle): Not able to reduce. Well rounded, no depressions (no findings) () Knee: Muscle protrudes, bone not prominent (no findings) (11/01/24 145) Calf (gastrocnemius muscle): 'Bulb' shape, firm and well developed (no findings) (11/01/241454) Muscle Wasting Assessment: No findings (11/01/241454) Edema: Trace or slight contour changes (mild) (11/01/241454) Hand Roller Inspector: Strong screw machine operator (no findings) (11/01/241454) Percentage of Energy: Adequate nutrient intake (no findings) (11/01/241454) Percentage of Weight Loss: Other (see comments) (weight fluctuations) (11/01/241454) Estimated Needs: Estimated Energy Target: 4229-2222 (11/01/241454) Estimated Protein Target: 65-80 (11/01/241454) Estimated Fluid Target : [id number] (11/01/241454) Nutrition Energy Formula: Calories per kilogram (11/01/241454) Weight Used for Formula: Adjusted body weight (65 kg) (11/01/241454) Clinical Data: Height: 5' 4 (162.6 cm) (10/31/24 1808) Woodman body weight: 54.7 kg (120 lb 9.5 oz) Adjusted ideal body weight: 71.6 kg (157 lb 14.3 oz) Body mass index is 36.71 kg/m??. Admission:Weight: 104.3 kg (230 lb) (10/30/24 2240) Weight Method: Stated (10/31/24 1052) Current:Weight: 97 kg (213 lb 13.5 oz) (11/01/24 0507) Wt Readings from Last 8 Encounters: 11/01/24 97 kg (213 lb 13.5 oz) 10/29/24 104.3 kg (230 lb) 10/26/24 103 kg (227 lb 1.2 oz) 10/20/24 96.2 kg (212 lb) 10/18/24 92 kg (202 lb 12.8 oz) 10/11/24 101 kg (222 lb 10.6 oz) 10/08/24 100.2 kg (221 lb) 10/03/24 100.3 kg (221 lb 0.6 oz) Labs Recent Labs 10/29/24 2018 10/31/24 0111 10/31/24 0807 11/01/24 0402 GLUCOSE 551* 399* -- 564* BUN 35* 28* -- 31* CREAT 0.85 0.69 -- 0.66 GFR >60 >60 -- >60 NA 136 139 -- 136 K 4.5 4.1 -- 4.3 CO2 27 28 -- 25 ANIONGAP 15 12 -- 17 CA 9.6 9.4 -- 9.7 MG -- -- 2.0 -- ALBUMIN 4.0 3.6 -- 3.9 ALKPHOS 158* 128* -- 146* ALT 24 19 -- 24 AST 31 15 -- 19 BILITOTAL <0.2 0.2 -- 0.2 LIPASE -- 21 -- -- Lab Results Component Value Date/Time PO4 2.7 07/29/2024 06:04 AM HGBA1C 8.9 (H) 07/28/2024 09:29 PM MG 2.0 10/31/2024 08:07 AM Current Diet and Intake: DIET DIABETIC Food/Meal: Lunch (11/01/24 1235),Intake (%): 100% (11/01/24 1235) , Skin: Sae Score: 19 (11/01/24 1100) Gastrointestinal: Last Bowel Movement (mm/dd/yyyy): 10/31/24 (11/01/24 1100) Allergies: Allergies Allergen Reactions Ketorolac Tromethamine Hives Prochlorperazine Hives and Seizure Propoxyphene Nausea and Vomiting Tramadol Hives Codeine Itching Propoxyphene N-Acetaminophen Nausea and Vomiting Past Medical History: Diagnosis Date Anxiety Arthritis Arthropathy, unspecified, site unspecified Atrial flutter (CMS/HCC) Bipolar affective disorder ([facility]/HCC) Breast cancer ([facility]) 2001 R with R mastectomy, chemo [...] smear Hyperlipidemia Ischemic cardiomyopathy Lower extremity edema [place] (myocardial infarction) (CMS/HCC) 2016 Neuropathy NSTEMI (non-ST elevated myocardial infarction) ([facility]) 06/06/2023 No stents placed at this time NSTEMI (non-ST elevated myocardial infarction) ([facility]) Paroxysmal A-fib ([facility]/HCC) Paroxysmal atrial tachycardia Pneumonia due to COVID-19 virus Polycythemia Primary hereditary hemochromatosis 12/13/2010 Unspecified essential hypertension Vaginal cancer (CMS/HCC) 2019 s/p radiation (end 11/2019) and Cisplatin (chemo) (end 08/2019) tumor non- resectable . Time spent:Consultation Time (mins): 15 mins (11/01/24 1455) * Jose Sheffield, Physical Therapist - 11/01/2024 2:43 PM CDT [facility] - [facility] Services 3[facility] Ph. Acute Physical Therapy Evaluation 11/01/2024 Room: [address] [place] [address] Name: Le Diaz Age: 59 y.o. Date of : 1965 Insurance: Payor: MEDICAID / Plan: MEDICAID [place] / Product Type: Medicaid / Patient Class: Observation Onset of illness/injury or date of surgery: 10/31/2024 Subjective Information/History Subjective Information Provided By: Patient Prior level of Function: patient is normally independent with her mobility with a 4WW Patient reports a history of falls: 1-2 Home Environment: 1-Story home Number of Outside Stairs: 6 Available Adaptive Equipment: Walkers: 4 wheeled Assistance available: lives with several roommates Patient/Family Goals Statement: I want to stop being dizzy Pain: Refer to Doc Flowsheet for documented pain levels. Consent To Treatment Given By: Patient and Nurse Safety Awareness Orientation: Person and Place Command Following: good Safety Awareness: Fair Precautions Patient Precautions: Fall Risk and Oxygen Bracing/Orthotics: none Weight Bearing: No Restrictions Objective Information/Examination Muscle Tone: Normal Coordination: Normal Sensation: Intact to light touch ROM: Right UE: Active: WFL Left UE: Active: WFL Right LE: Active: WFL Left LE: Active: WFL Strength: Right UE: WFL Left UE: WFL Right LE: Generalized weakness noted: limiting balance, limiting functional mobility , limiting tolerance to activity Left LE: Generalized weakness noted: limiting balance, limiting functional mobility , limiting tolerance to activity Functional Mobility: supervision needed for safety cues and patient c/o dizziness with movement Rolling: Independent Scooting: Independent Supine to sit: Independent Sit to supine: Independent Sit to stand: supervision Bed to chair: supervision Gait Trainin feet with rolling walker. supervision for safety cues. Deficits affecting function/Deviations noted: patient limited by c/o dizziness Patient required verbal cues energy conservation Balance: Sitting: Normal Standing: Abnormal: unsteady with walker Vitals Patient on 3 liters/min via nasal cannula Vital signs stable throughout session [facility] Basic Mobility How much help from another [...] bed to a chair (including a wheelchair)? 3 - A little (supervision to min assist) 4. Standing up from a chair using your arms (e.g., wheelchair, or bedside chair)? 3 - A little (supervision to min assist) 5. Walking in hospital room? 3 - A little (supervision to min assist) 6. Climbing 3-5 steps with a railing? 1 - Total assist or cannot do at all Total score 18/24 0-16 - indicates likely facility discharge 17-24 indicates likely community discharge * scores determined based on patient report, observation or professional expertise Assessment/Plan Le Diaz is a 59 y.o. female is referred for physical therapy. Based on objective findings above, the patient presents with the following impairments: balance deficits, decreased activity tolerance, decreased strength, gait disturbance, limited safety awareness, and risk for falls which impacts her ability to return to OF. Patient is currently functioning below her prior level of function. Plan will include but is not limited to: Gait Training, Transfer Training, Patient/Family Education, Balance Training, Equipment Training, Functional Strengthening, and Monitor and adjust treatment as needed based on patient response/vital signs, in accordance with physicians ordered guidelines. Specific focus for next treatment session: progressive gait. PT Evaluation: medium complexity Recommendations During acute hospitalization, recommend low frequency treatment (1-3 times per week). Current plan of care to continue until goals met or patient discharges from facility Functional Prognosis: Based on prior level of function and deficits, anticipate good ability to return to OF. Based on PT assessment of and/or progress with physical function, AM-PAC Basic Mobility score, and tolerance for activity, anticipated discharge disposition once medically ready: Home with assistance(11/01/241441). Safety concerns if patient is without supervision/assistance. . * The final discharge location is determined through physician, case management, and patient/caregiver input along with insurance authorization of skilled services when appropriate Plan of care and/or discharge recommendations shared with: Patient, Chain Forming Machine Operator, and Nurse PT Recommended DME: No new DME recommended (11/01/241441). Daily activity recommendations: Up with 1 assist Recommendations for referral to another service: Care Management Education/Training Provided Education provided: functional mobility, plan of care, and safety Learner, method of education, and response to learning listed in Education tab in Epic. Disposition At start of session, patient found lying in bed At end of session, patient left lying in bed and call light in reach Current Diagnoses/Past Medical History Pertinent diagnoses and past medical history related to this hospital stay are present in physicianH&P and physician daily notes. Prior to PT session a thorough chart review was completed including prior PT notes as applicable. Further treatment notes and therapeutic goals can be found in Care Plan Notes. If the patient discharges from the facility before another therapy visit, this shall serve as the therapy discharge summary. Thank you for this referral, Jose Sheffield, Physical Therapist * Nica Zurita RN - 11/01/2024 1:29 PM CDT Learners: Patient and Family Readiness: Acceptance Method: Explanation and Handout Teaching Points Response Understanding Heart Failure Verbalizes Understanding Heart Failure Medication Management Importance of Taking as Prescribed Side Effects Preferred Pharmacy: [id number] [place] [address] Verbalizes Understanding Diet and Nutrition Prescribed Diet Incorporating Healthy Eating Habits Reading and Understanding Nutrition Labels Managing Sodium Intake Managing Fluid Intake Verbalizes Understanding Symptom Management Self-Monitoring & Symptom Tracking Shortness of Breath Fatigue/Tiredness Swelling/Edema Weight Gain Blood Pressure Rapid or Irregular Heartbeat Mental Fatigue/Depression Verbalizes Understanding Physical Activity Exercise Rest Daily Goal(s) Verbalizes Understanding Smoking Cessation (if applicable) Tobacco Marijuana Vaping Quitting Resources Verbalizes Understanding Alcohol and Caffeine Consumption and Moderation Effects on Heart and Health Verbalizes Understanding Stress Management Awareness Reduction Strategies Verbalizes Understanding Sleep Sleep Schedule and Routine Verbalizes Understanding Physician/Provider Follow Up Appointment Importance of Keeping All Appointments Ongoing Monitoring and Early Identification of Issues Verbalizes Understanding Primary Care Provider Name: Display Specialist Name: Patient Care Team: Delta Wade MD as PCP - General (Family Practice) Amanda Streeter DO as Consulting Physician (Gynecologic Oncology) Jenniffer Lepe APRN-CNP as Nurse Practitioner (Nurse Practitioner Family) Yvette Renee NP as Nurse Practitioner (Nurse Practitioner Family) Post Hospitalization Follow Up Appointment With: Date/Time: Free Text Date/Time Health Related Social Needs Impacting Care None Identified Consults and Referrals Identified: None Identified Comments: * Nica Lombardi, Occupational Therapist - 11/01/2024 10:41 AM CDT [facility]. Acute Occupational Therapy Evaluation 11/01/2024 Room: [address] [place] [address] Name: Le Diaz Age: 59 y.o. Patient Class: Observation Date of : 1965 Insurance: Payor: MEDICAID / Plan: MEDICAID [place] / Product Type: Medicaid / Prior to OT session thorough chart review completed, including prior OT notes as applicable. Consent to evaluate provided by patient and nurse Date of admission: 10/31/2024 SUBJECTIVE Occupational Profile Information provided by: patient and chart Prior Level of Function ADLs: assistance needed for lower body dressing, bathing, and toileting IADLs: assistance needed for laundry and cleaning; Pt cooks seated and using a motorized scooter when grocery shopping. Patient does not drive Functional mobility: modified independent using 4WW Falls: Pt reports several falls in the last 6 months Home Information Employment/daily routine: ADLs, some IADLs, and enjoys cooking Self-care assist available at home: Pt lives with two roommates who provided assistance and are home 13/10. Home environment: 1-level home 6 step(s) to enter Walk-in shower Durable medical equipment already in home: Walkers: 4WW Hospital bed Home O2; 3-4L/min Hand-held shower head Beauty Therapist Sock aid Additional Information Patient/family statement/goal(s): Go home Comments: Pt supine in bed upon entry. Agreeable to therapy. Pt very impulsive. Pain: Refer to flowsheet for documentation of pain and interventions. OBJECTIVE Cognition Level of alertness: alert Orientation: oriented to person and place Command following: poor d/t impulsivity Safety awareness: poor; limited by impulsivity, decreased problem solving, decreased insight into deficits, and decreased attention Memory: unable to assess Vision: not assessed UE Function UE Assessment Right Left ROM Active: WFL Active: WFL Strength WFL; 4/5 WFL; 4/5 All additional UE assessments (including tone, coordination, sensation, and edema) not indicated ordeemed WFL. Occupational Performance Activities of Daily Living Feeding: independent for gfsd-xo-alnae excursion Grooming: NT; anticipate supervision seated in chair Upper extremity dressing: minimal assistance to [facility] gown Lower extremity dressing: NT; anticipate moderate assistance to [facility] gown as robe Toileting: maximal assistance on BSC for hygiene and gown management Toilet transfer: supervision sit < > stand from BSC All tasks not tested with anticipated assist levels are based on observed tasks and movement patterns. Functional Mobility All mobility completed with gait belt, non-skid socks, and walker Bed mobility: independent supine < > sit EOB Sit to stand: supervision from EOB for safety d/t impulsivity Functional ambulation: supervision x 2 feet for safety using 2WW. Pt reports feeling dizzy and sat down EOB Patient required verbal cues for attention to task, safety due to impulsivity, command following, and problem solving. [facility] AM-PAC Daily Activity How much help from another person does the patient currently need? Score 1. Putting on and taking off regular lower body clothing? 2 - A lot (max to mod assist) 2. Bathing (including washing, rinsing, drying)? 3 - A little (supervision to min assist) 3. Toileting, which includes using toilet, bedpan or urinal? 2 - A lot (max to mod assist) 4. Putting on and taking off regular upper body clothing? 3 - A little (supervision to min assist) 5. Taking care of personal grooming such as brushing teeth? 3 - A little (supervision to min assist) 6. Eating meals? 4 - None (independent) Total score 17/24 0-19 indicates likely facility discharge 19-24 indicates likely community discharge *Scores determined based on patient report, observation or professional expertise* Vitals Current O2 requirement: 3 L/min via nasal cannula Vital signs stable throughout. Precautions Patient precautions: fall Patient bracing: none Weight bearing: no restrictions ASSESSMENT & PLAN Evaluation Details Le Diaz is a 59 y.o. female referred for OT following admission for syncopal episode. Additional pertinent diagnoses and past medical history related to this hospital stay are present in physician H&P and physician daily notes. OT evaluation: Moderate complexity Assessment Patient is currently functioning near her prior level of function. Patient does [...] discharge disposition, once medically ready: Home with 24-hour supervision (11/01/241040). Rationale: Safety concerns present. * The final discharge location is determined through physician,case management, and patient/caregiver input along with insurance authorization of skilled serviceswhen appropriate. Plan of care and discharge recommendations shared with patient, child adolescent care, and PT OT recommended DME and AE upon discharge: No new DME recommended (11/01/241040) No new additional adaptive equipment necessary (11/01/241040) Education provided to patient regarding OT recommendations and plan of care, ADL training, functional mobility/transfers, home safety, fall prevention, activity tolerance Education response: verbalized understanding and would benefit from reinforcement Nursing Staff Mobility Recommendations Recommended daily activity during admission: up with supervision using 2WW and up to chair for meals Disposition At start of session, patient found lying in bed At end of session, patient left in bed, call light in reach, phone in reach, patient instructed notto get up without staff assistance, and staff notified of patient location/events of session Further treatment notes and therapeutic goals can be found in Care Plan Notes. If the patient discharges from facility before another therapy visit, this shall serve as therapy discharge summary. Thank you for this referral, Nica Lombardi, Occupational Therapist Patient seen under direct supervision, agree with above documentation and associated education. LISA Thao ([employer] chat to contact) * Jerson Nuñez RDCS - 11/01/2024 8:03 AM CDT NONINVASIVE VASCULAR LAB - EXT 60426 TECHNOLOGIST PRELIMINARY WORKSHEET PHYSICIAN INTERPRETATION TO FOLLOW Patient Name: Le Diaz #: [id number] Date:11/01/2024 Tech Initials: jct ExamEnd Time: 0750 Critical Result Notification [] [] RN (name) Notification Time: NONINVASIVE EXTRACRANIAL CAROTID STUDY - BILATERAL A. [x] Images consistent with no extracranial stenosis: [x] RCCA [x] MITCH [x] RECA [x] LCCA [x] LICA [x] LECA B. [] Echogenic irregularities lining the vessel wall: [] RCCA [] MITCH [] RECA [] LCCA [] LICA [] LECA [] Images consistent with <50% extracranial stenosis in the: [] Images consistent with 50-69% extracranial stenosis in the: [] Images consistent with >70% extracranial stenosis in the: [] Images consistent with near occlusion in the: [] Images consistent with an extracranial occlusion in the: [] Images consistent with extracranial stenosis in the external carotid artery: [] right [] left DIAGNOSTIC DOPPLER CRITERIA FOR INTERNAL CAROTID ARTERY DISEASE Primary Parameters Additional Parameters Degree of Stenosis % ICA PSV (cm/sec) Plaque Estimate % ICA / CCA PSV Ratio ICA EDV cm/sec Normal < 180 None < 2.0 < 40 < 50 < 180 <50 < 2.0 < 40 50-69 181 - 230 >50 2.0 - 4.0 40 - 100 > 70 > 230 >50 > 4.0 > 100 Near occlusion High, low, or undetectable Visible Variable Variable Total occlusion Undetectable Visible, no detectable lumen Not applicable Not applicable Technologist Comments: Reference: IAC - Updated Recommendations for Carotid Stenosis Interpretation Criteria - December 2020 * Tiffanie Dawn FNP - 10/31/2024 9:15 PM CDT [facility] Cross Cover Call Two patient identifier: Le Diaz 1965 Called for: hyperglycemia Last Recorded Vitals: BP 131/66 (BP Location: Left arm, Patient Position (BP): Supine) Pulse 88 Temp 97.4 ??F (36.3 ??C) (Temporal) Resp 22 Ht 5' 4 (1.626 m) Wt 101.5 kg (223 lb 12.3 oz) SpO2 95% BMI 38.41 kg/m?? Pain Rating: Rest: 9 (10/31/242045) This is a 59 year old female here with syncopal episode. She has a history of essential hypertension, HLD, GERD, COPD on 3-4 L per [place], CAD s/p coronary stent placement, CHF, HEENA, bipolar disorder, insulin-dependent DM, hx of breast cancer s/p mastectomy, hx of PE on anticoagulation, chronic pain syndrome, hx of splenectomy, obesity, and former tobacco user. RN called for blood sugar of 502. She is taking 20 units of Lantus at bedtime and Humalog sliding scale coverage with meals plus at bedtime. Currently, she it taking Solumedrol. Documentation/Intervention/Outcome: Chart reviewed. Added 3 units to Humalog sliding scale coverage Recheck per protocol 0310-blood sugar is 542 Spoke to with order for 10 units of regular insulin IV once Recheck per protocol Please call back any time if I can be of more assistance. RALEIGH Malloy Cosigned by Huy Ornelas MD at 11/01/2024 4:16 AM CDT * Harriet Samayoa RN - 10/31/2024 12:58 PM CDT Critical Executive Meeting Manager Sepsis Exclusion Note 10/31/2024, 12:58 PM Patient is not septic at this time. This note is prepared by Harriet Samayoa RN , Critical Executive Meeting Manager RN, acting as a scribe for Dr. Dewitt. Harriet Samayoa RN Cosigned by Danyell Dewitt MD at 10/31/2024 7:07 PM CDT * Chiqui Arreguin RN - 10/31/2024 12:54 PM CDT [facility] Sepsis Surveillance note A positive vSepsis screen does not imply diagnosis. Potential vSepsis Time Zero: Yes (10/31/241224) Clinical Criteria documented at time of alert: Criteria A - Questionable Infection Present?: Yes (10/31/241224) Questionable source of infection: Risk for Pneumonia (10/31/241224) SIRS Criteria: Heart rate (pulse) > 90 bpm;Respiration > 20/min (10/31/24 122) Organ Dysfunction Criteria: Lactate > 2 (08/11/25 1225) Questionable Severe Sepsis/Questionable Septic Shock/Other?: Questionable Severe Sepsis (per [facility]) (10/31/241224) Initial Lactic Acid?: Yes, Ordered by Bedside;Collected - Yes (Within time frame) (10/31/241224) [facility] SEP-1 Bundle Elements at time of alert: Repeat Lactic Acid Ordered?: Ordered - No (10/31/241224) Blood Cultures?: Yes, Ordered by Bedside;Collected - No (10/31/241224) Antibiotics?: Ordered - Yes;Administered - No (10/31/241224) [facility] has notified the bedside team via secure chat. Please call [facility] Sepsis if any assistance is needed. Please call [facility] Sepsis if the patient does not have severe sepsis / septic shock and the sepsis alert needs to be cancelled. [facility] Sepsis Chiqui Arreguin RN * Riana Lawson PHARMACIST - 10/31/2024 11:32 AM CDT RX ANTICOAG MONITORING ORDERS Pharmacy to order, review, and report clinically significant changes in lab per [facility] Anticoagulation Protocol as follows: Orders for dosing changes and follow-up labs will be signed ???Per Protocol?? in [facility]. The name ofthe provider signed on the follow-up orders for cosignature will be assigned as follows: Orders placed by members of the Manager Behavioral or Hospitalist physician groups: If the original [...] order appropriate labs as indicated by the [facility] Anticoagulation Monitoring policy located on [facility] intranet, unless already ordered. The medications [...] Safety Goal 3E and authorized by the [facility] Pharmacy and Therapeutics Committee. documented in this encounter H&P Notes * Danyell Dewitt MD - 10/31/2024 10:46 AM CDT Images from the original note were not included. [facility] Hospitalist-Danyell Dewitt MD History and physical- date of admission: 10/31/2024 Patient name: Le Diaz Date of : 1965 CSN number: [id number] PCP: Delta Wade MD Chief Complaint: Chief Complaint Patient presents with Shortness of Breath Wears 4lpm O2 at all time. Recent fall. Pt reports that she had a syncopal episode this morning. States I woke up face first on the floor History of present illness: Pt seen and examined at the bedside Le Diaz is a 59 y.o. female who is being admitted for further evaluation of multiple complaints including syncopal episode where she fell down Ms. Diaz is a 59 y.o. female with PMH significant for essential HTN, HLD, GERD, COPD on 3-4 L nasal cannula oxygen at home, CAD s/p coronary stent placement, CHF, HEENA/bipolar disorder, insulin-dependent diabetes mellitus, history of breast C s/p mastectomy, history of PE on anticoagulation, chronic pain syndrome, history of splenectomy, obesity and former tobacco use who was just admitted October 26 through October 29. She was discharged to home to follow-up with pulmonology in 2 weeks. During that admission she was admitted for a COPD exacerbation. She was treated with Solu-Medrol as well as nebulizers and Robitussin. She was discharged on her home O2 at 4 L nasal cannula. She was also discharged on Lovenox twice daily as well as Coumadin until her INR becomes therapeutic at 2-3 which she is on for history of PE. She says she was at home she went to get out of her car and fell and fell on her face she initially told the ER that she was short of breath and had chest pain. She is still describing chest pain and is asking for pain medications In the ER she did have a CT scan done of her head that shows no acute intracranial finding. CTA of her chest showed no central pulmonary artery filling defects to suggest large volume PE. There is noevidence of RV strain. There was a masslike consolidation in the left lung base similar to the prior CT. She was given antibiotics in the emergency room and hospitalist were asked to admit. Cardiology hasbeen consulted from the ER also because of her chest pain and history of coronary artery disease. Hospitalists have been asked to admit. I spoke to the ER physician in person and discussed the current ER course. At the time of my evaluation in the ER, patient is resting on the ER stretcher. She seems anxious, asking for pain meds over and over. We discussed admission to the hospital. We also discussed that she has had multiple admissions recently and perhaps she would benefit from having some additional rehab or assistance at home and she verbalizes that she is open to this. She also was describing some abdominal cramping and some constipation. We have ordered PRNs for cristian well. She is currently on Lovenox twice daily until her INR is therapeutic, she thinks she forgot to take it last night-will resume and check INR daily until INR is therapeutic at 2-3 Past medical history: Reviewed with patient and in the chart Past Medical History: Diagnosis Date Anxiety Arthritis [...] smear Hyperlipidemia Ischemic cardiomyopathy Lower extremity edema [place] (myocardial infarction) ([facility]) 2015 Neuropathy NSTEMI (non-ST elevated myocardial infarction) ([facility]) 06/06/2023 No stents placed at this time NSTEMI (non-ST elevated myocardial infarction) ([facility]) Paroxysmal A-fib ([facility]) Paroxysmal atrial tachycardia Pneumonia due to COVID-19 virus Polycythemia Primary hereditary hemochromatosis 12/13/2010 Unspecified essential hypertension Vaginal cancer ([facility]) 2019 s/p radiation (end 11/2019) and Cisplatin (chemo) (end 08/2019) tumor non- resectable . Active chronic medical issues that patient has been followed for as outpatient: Patient Active Problem List Diagnosis Code Bipolar affective disorder ([facility]) F31.9 Hypertension I10 Insomnia G47.00 Liver masses R16.0 Primary hereditary hemochromatosis E83.110 Former smoker Z87.891 Urinary incontinence R32 Mixed hyperlipidemia E78.2 H/O vaginal surgery Z98.890 Atherosclerosis of [place] coronary artery of [place] heart without angina pectoris I25.10 Tachycardia R00.0 Asthma J45.909 Chronic pain syndrome G89.4 Osteoarthritis of cervical spine M47.812 HEENA (generalized anxiety disorder) F41.1 GERD (gastroesophageal reflux disease) K21.9 Opioid dependence ([facility]) F11.20 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 History of breast cancer Z85.3 Type 2 diabetes mellitus without complication, without long-term current use of insulin ([facility]) E11.9 H/O mastectomy, right Z90.11 Closed nondisplaced fracture of body of left scapula S42.115D Hematoma of spleen after procedure on spleen D78.31 RUQ pain R10.11 Splenic cyst D73.4 Adynamic ileus ([facility]) K56.0 Leukocytosis (leucocytosis) D72.829 Protein-calorie malnutrition, moderate E44.0 NSTEMI (non-ST elevated myocardial infarction) ([facility]) I21.4 History of splenectomy Z90.81 Hypokalemia E87.6 History of pulmonary embolism Z86.711 Peripheral edema R60.0 Hot flashes R23.2 Snoring R06.83 Daytime somnolence R40.0 Atypical angina I20.89 Non-proliferative diabetic retinopathy, left eye ([facility]) E11.3292 Nuclear age-related cataract, both eyes H25.13 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 vein occlusion with neovascularization of right eye ([facility]) H34.8111 Neuropathy G62.9 Hammertoe of left foot M20.42 Pneumonia of left lower lobe due to infectious organism J18.9 Chronic hypoxic respiratory failure ([facility]) J96.11 Right leg pain M79.604 Preoperative general physical examination Z01.818 Obesity (BMI 30.0-34.9) E66.811 Anemia D64.9 HFrEF (heart failure with reduced ejection fraction) ([facility]) I50.20 Cellulitis of right lower extremity L03.115 Acute on chronic combined systolic and diastolic CHF (congestive heart failure) ([facility]) I50.43 Vagina absent Q52.0 Acute respiratory distress R06.03 Macrocytosis D75.89 Pneumonia of left lung due to infectious organism J18.9 Acute on chronic hypoxic respiratory failure ([facility]) J96.21 Insulin dependent type 2 diabetes mellitus ([facility]) E11.9, Z79.4 Benign hypertension I10 CAD (coronary atherosclerotic disease) I25.10 Morbid obesity due to excess calories ([facility]) E66.01 Chronic anticoagulation Z79.01 Fall W19.XXXA Rhinovirus infection B34.8 L1 vertebral fracture ([facility]) S32.019A Closed compression fracture of body of L1 vertebra ([facility]) S32.010A Dyspnea R06.00 Back pain M54.9 COPD exacerbation ([facility]) J44.1 At risk for obstructive sleep apnea Z91.89 Chest pain R07.9 Acute respiratory failure with hypercapnia ([facility]) J96.02 Diarrhea R19.7 Dark stools R19.5 Centrilobular emphysema ([facility]) J43.2 Acute on chronic congestive heart failure ([facility]) I50.9 Obesity E66.9 COPD with exacerbation ([facility]) J44.1 Pain of upper abdomen R10.10 Shortness of breath R06.02 Other chest pain R07.89 syncopal episode R55 Essential hypertension I10 Past surgical history: Reviewed with patient and in the chart Past Surgical History: Procedure Laterality Date ENDOSCOPY, COLON, DIAGNOSTIC HX APPENDECTOMY HX BLADDER SUSPENSION Bladder Suspension HX ESOPHAGOGASTRODUODENOSCOPY N/A 03/19/2024 ESOPHAGOGASTRODUODENOSCOPY performed by Mikey Moon MD at [facility] MAIN OR HX MASTECTOMY Right no lymph node removal HX PTCA stents (x3 in 2016, x2 in 2018) HX SPINAL SURGERY 2005 C4-5 fusion at [place], [place] HX SPLENECTOMY HX SURGICAL OTHER 1984 vaginal reconstruction HX TONSILLECTOMY HX 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 INSERT MIDLINE IV 10/31/2024 [place] CATH PLMT L HRT & ARTS W/NJX & ANGIO IMG S&I N/A 03/21/2024 Left heart cath performed by Kyler Helm MD at [facility]OLOGY [place] CATH PLMT L HRT & ARTS W/NJX & ANGIO IMG S&I N/A 03/21/2024 Left Ventriculogram performed by Kyler Helm MD at [facility] [place] COLONOSCOPY FLX DX W/COLLJ SPEC WHEN PFRMD 01/23/2011 COLONOSCOPY performed by MACK BISWAS at [facility] [place] COLONOSCOPY FLX DX W/COLLJ SPEC WHEN PFRMD 09/19/2010 COLONOSCOPY performed by MACK BISWAS at [facility] [place] [place] CORRECTION HAMMERTOE Left 07/20/2024 TOE(S) ARTHROPLASTY performed by Tereso Gil, DPM at [facility] OR [place] EXPL PENETRATING WOUND SPX ABDOMEN/FLANK/BACK N/A 05/30/2023 LAPAROTOMY EXPLORATORY performed by Jose Cruz Montero DO at [facility] MA[facility] OR [place] INJ SUBSTITUTE PARS PLANA/LIMBL W/WO ASPIR SPX Right 03/30/2024 EYE AIR FLUID GAS EXCHANGE performed by Eduardo Craven MD at [facility] [employer] [place] RPR RPTD SPLEEN SPLENORRHAPHY W/WO PRTL SPLENECT N/A 05/30/2023 SPLENECTOMY performed by Jose Cruz Montero DO at [facility] MA[facility] OR [place] VITRECTOMY MCHNL PARS PLNA FOCAL ENDOLASER PC Right 03/30/2024 PARS PLANA VITRECTOMY WITH LASER performed by Eduardo Craven MD at [facility] SURGERY [facility] Current medications: Reviewed with patient and in the chart Prior to Admission Medications Prescriptions Last Dose [...] Patch, Medicated No No Sig: Back pain Patient not taking: Reported on 10/10/2024 Nebulizer & Compressor For Neb Device No [...] by inhalation every 6 hours as needed. aspirin (CARTER CHEWABLE) 81 mg Tablet, Chewable [...] 2 Puffs by inhalation 2 times daily. empagliflozin (JARDIANCE) 10 mg tablet No No Sig: Take 1 Tablet (10 mg) by mouth daily in the morning. enoxaparin (LOVENOX) 100 mg/mL injection Yes No Sig: Inject 100 mg by subcutaneous injection every 12 hours. fluorouraciL (EFUDEX) 5 % Cream Yes No furosemide (LASIX) 80 mg tablet No No Sig: Take 1 Tablet (80 mg) by mouth 2 times daily. insulin lispro (HumaLOG,ADMELOG) 100 unit/mL pen [...] by mouth daily. naloxone (NARCAN) 4 mg/spray Coleman, Non-Aerosol No No Sig: EMERGENCY USE ONLY: [...] mg) by mouth daily with breakfast for 2 days. ranolazine ER (RANEXA) 500 mg Extended Release [...] for Other (See Comment) (rash). warfarin (COUMADIN) 6 mg tablet No No Sig: Take 2 Tablets (12 mg) by mouth late in the day. Facility-Administered Medications Last Administration Doses Remaining fluorescein (AK-ABHI, FLUORESCITE) 500 mg/5 mL (10 %) injection 1 mL None recorded 1 phenylephrine 2.5 % ophthalmic solution 1 Drop None recorded 1 proparacaine (OPTHAINE) 0.5 % ophthalmic solution 2 Drop None recorded 1 tropicamide (MYDRIACYL) 1 % ophthalmic solution 1 Drop None recorded 1 Allergies and intolerances: Reviewed with patient and in the chart Allergies Allergen Reactions Ketorolac Tromethamine Hives Prochlorperazine Hives and Seizure Propoxyphene Nausea and Vomiting Tramadol Hives Codeine Itching Propoxyphene N-Acetaminophen Nausea and Vomiting Social history: reviewed with patient and in the chart Social History Socioeconomic History Marital status: Spouse [...] friend. Social Drivers of Health Food Insecurity: Low Risk (10/17/2024) Food Insecurity Eating less because can't pay for food: No Transportation Needs: Low Risk (10/17/2024) Transportation Needs Worry about transportation for doctor visits / corn picker meds: No Feeling Safe: Not At Risk (10/30/2024) Feeling Safe Patient has indicated abuse: : No Housing Stability: Low Risk (10/17/2024) Housing Stability Struggle to pay rent or mortgage: No Family History: Reviewed with patient and in the chart Family History Problem Relation Name Age of Onset Stomach Cancer Paternal Aunt Colon Cancer Paternal Grandmother Lung Cancer Paternal Grandmother Breast Cancer Maternal Aunt 60 Breast Cancer Maternal Aunt 70 Heart Disease Father Hypertension Father Breast Cancer Mother 58 Hypertension Mother Ovarian Cancer Neg Hx Review of Systems - History obtained from the patient, General ROS: negative for chills or fever, noted fatigue, no night sweats, no unexpained weight loss or weight gain Psychological ROS: significant anxiety type symptoms ENT ROS: negative for nasal congestion, no sinus drainage, no nosebleeding, no sore throat, no dysphagia, no ear pain Hematological and Lymphatic ROS: History of DVT and PE Endocrine ROS: negative for polyuria/polydipsia Respiratory ROS: negative for cough, no shortness of breath, no wheezing Cardiovascular ROS: Episodes of chest pain, seems to get worse when she coughs Gastrointestinal ROS: Cramping and constipation Genito-Urinary ROS: no dysuria, no trouble voiding,or hematuria Musculoskeletal ROS: negative for worsening ongoing back pain, no worsening or chronic neck pain, no new or worsening joint pain, no calf swelling Neurological ROS: Patient reports syncopal episode when she got home Physical Exam: BP 137/60 Pulse (!) 103 Temp 98.6 ??F (37 ??C) (Oral) Resp 24 Ht 5' 4 (1.626 m) Wt 104.3kg (230 lb) SpO2 95% BMI 39.48 kg/m?? Last documented weight: Weight: 104.3 kg (230 lb) (10/30/24 2240) General appearance alert, cooperative, no distress, appears stated age, oriented to time, place andperson, Throat Lips, mucosa, and tongue APPEAR DRY. Teeth and gums normal Neck supple, symmetrical, trachea midline, no adenopathy, thyroid: not enlarged, symmetric, no tenderness/mass/nodules, no carotid bruit and no JVD Back symmetric, no curvature. ROM normal. No CVA tenderness Lungs Decreased breath sounds at bases Chest wall no tenderness, no skin rash or lesions or bruising, no crepitance Heart regular rate and rhythm, S1, S2 normal, no murmur, click, rub or gallop Abdomen Low bowel sounds, soft, describes diffuse crampy pain feels like she is constipated Extremities Trace bilateral lower extremity edema Pulses 2+ and symmetric on dorsal pedal pulses, posterior tibial pulses, radial pulses Skin No obvious skin rash noted on exposed skin, Neurologic Normal, nonfocal, no focal weakness, I have personally reviewed the following admitting data listed below and other admitting data that may not be listed below: I have personally seen, questioned and examined the patient at the bedside. I have personally reviewed the following laboratory results: Lab Data: Recent Labs 10/29/24 0126 10/29/24 2144 10/31/24 0308 WBC 9.0 9.5 7.0 HGB 12.6 12.2 8.9* HCT 40.8 38.4 28.6* PLT 196 207 146 Recent Labs 10/29/24 0126 10/29/24201710/31/24 0111 NA 140 136 139 K 3.5 4.5 4.1 CL 95* 94* 99 CO2 29 27 28 CA 9.5 9.6 9.4 BUN 30* 35* 28* CREAT 0.85 0.85 0.69 GLUCOSE 319* 551* 399* Recent Labs 10/29/24201710/31/24 0111 TOTALPROTEIN 7.5 6.5 ALBUMIN 4.0 3.6 BILITOTAL <0.2 0.2 ALKPHOS 158* 128* AST 31 15 ALT 24 19 Recent Labs 10/29/24 0126 10/31/24 0807 INR 1.4* 1.6* PT 17.9* 19.6* Recent Labs 10/31/24 0111 10/31/24 0807 BASETROP 24* -- 2HRTROP -- 26* DELTA -- 2 Lab Results Component Value Date/Time MG 1.8 10/26/2024 02:04 PM EKG: first one done in ER shows sinus rhythm CXR: reviewed by me shows trace bilateral pleural effusions, final reading by radiologist pending CT head: CTA of the chest: Assessment: Principal Problem: syncopal episode Active Problems: Mixed hyperlipidemia History of breast cancer NSTEMI (non-ST elevated myocardial infarction) ([facility]/HCC) Peripheral edema HFrEF (heart failure with reduced ejection fraction) (CMS/[facility]) Shortness of breath Other chest pain Essential hypertension PLAN: 59-year-old female with history of coronary artery disease COPD and multiple admissions, very high readmission risk, having back to the emergency room after just being discharged 2 days ago coming inwith shortness of breath and complaints of a syncopal episode-CTA of the chest shows no large vessel occlusion, remains on Lovenox until her INR is therapeutic, has multiple complaints, plan to admitwill resume treatment with antibiotics and Solu-Medrol continue close monitoring, plan repeat echocardiogram as well as carotid ultrasounds given syncopal episode and monitor on telemetry Syncopal episode-unclear etiology - Check orthostatic vitals - Get carotid ultrasound and echo - Continue to monitor on telemetry, may need event monitor or Holter monitor History of coronary artery disease, follows with cardiology, complaint of chest pain as well however now seems less of an issue -Consider cardiology consult in the morning -CT of the chest shows no evidence for new PE - Continue home cardiology medications including metoprolol and Entresto Imdur and Ranexa, aspirin - Monitor on telemetry - Continue serial troponins - Will get repeat echo Shortness of breath, possible continued COPD exacerbation - Continue 4 L nasal cannula that she is on at home but will restart IV Solu- Medrol as well as antibiotics - It does not look like she has ever seen pulmonology. I cannot tell that she was ever referred to see them as an outpatient so could benefit from establishing with pulmonology. Question of lung mass noted on her CTA of the chest - Continue empiric antibiotics for now - Consider pulmonology consult Chronic diastolic heart failure - Continue p.o. Lasix, appears compensated -continue monitoring on telemetry Essential hypertension - Continue home meds History of PE, on Coumadin, INR is subtherapeutic and she has been on Lovenox twice daily as a bridge until his INR is therapeutic - Resume Lovenox shots - Continue Coumadin - Follow INR daily, goal is to get INR to 2-3 DVT prophylaxis: lovenox as bridge, on Coumadin as well, goal is 2-3 INR Plan discussed with patient , and they agree with the current plan- they expressed understanding ofthe plan of care and are in agreement. Plan of care also discussed with ER physician and ER nursingteam on admission in the ER Code status: Full Code Code status and goals of care was discussed with the patient, and code status was updated in the chart. Medical decision making in this case on admission: MDM complexity: [] Mild [] Moderate [x] High Personally discussed patient care with Dr. Rivas and ED team, and any other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 for PIV access. 0010 Midline in 3e prioritized for patient care. PICC RN will return to assess for PIV access and collect labs. 0100 Arrived at ER waiting room to assess patient for PIV access. Pierce Purvis RN documented in this encounter ED Notes * Chayo Vidal RN - 10/31/2024 5:35 PM CDT Pt's bed changed with clean dry linens, pt given dry gown. * Harika Watson RN - 10/31/2024 3:32 PM CDT At pt's request dietary called. Diet coke ordered for dinner. * Tiffanie Lopez RN - 10/31/2024 1:58 PM CDT Pt rounding. Pt hs spontaneous and non labored respirations. Pt is on 3 lpm NC. Pt is speaking withfamily at bedside. Pt is alert and oriented x 4. Pt is updated on plan of care. Call light left within reach. * Tiffanie Lopez RN - 10/31/2024 1:34 PM CDT Contacted Provider to advise that one set of cultures was obtained. Dr. Dewitt stated to go ahead and start antibiotic treatment. * Tiffanie Lopez RN - 10/31/2024 11:[address] Dewitt on difficulty obtaining cultures from patient. * Tiffanie Lopez RN - 10/31/2024 10:55 AM CDT RN attempted twice to obtain cultures and lactic acid and blood draw was unsuccessful. * Rissa Perez RN - 10/31/2024 10:53 AM CDT Admission RN asked pt if she could tell me when she took each medication as it is listed and she stated I could tell you but I don't want to * Tiffanie Lopez RN - 10/31/2024 7:35 AM CDT Assumed care of pt, report received from Joan FROST. Rounded on pt, introduced self. Pt currently is alert and oriented x4. Pt is requesting to speak with Dr. Rivas regarding pt requestsfor CT scan. Provider will be messaged. Pt states pain is 9/10 at the posterior base of neck from fall. Pt's breathing spontaneous and non labored. Lung sounds are adventitious. Pedal edema noted in right foot. . Pt voiced concerns over pain control and neck pain. . Stretcher locked with side rails up, call light within reach and pt encouraged to call for any needs. * Joan Hayden LPN - 10/31/2024 7:08 AM CDT Attempted to get bloodwork on pt, IV did not pull. Flushes WDL. IV consult put in. * Joan Hayden LPN - 10/31/2024 6:19 AM CDT Pt states she left the waiting room from the ER a couple of nights ago and didn't have her oxygen. She said she thinks her COPD is flaring up. Pt is resting in bed, resps labored but even. Call lightin reach. * Kyler Titus RN - 10/31/2024 5:28 AM CDT Patient ambulated unassisted with a steady gait out the ED exit and smoked a cigarette. Patient ambulated back into the waiting room and replaced her oxygen. * Kyler Titus RN - 10/31/2024 2:48 AM CDT Patient speaking at elevated volume with her son about her frustration at her wait time. GOT * Kyler Titus RN - 10/31/2024 1:19 AM CDT Patient able to verbalize at a loud volume across the waiting room to her son to get her a sprite. * Kyler Titus RN - 10/31/2024 1:06 AM CDT Patient son came to the triage desk to report patient is having increased shortness of breath. Patient speaking in full sentences. Spot checked spo2 and sat read 96% on baseline 4L NC. * Winsome Steward RN - 10/31/2024 12:51 AM CDT Pt cont to have a full conversation with her son while in waiting room * Winsome Steward RN - 10/31/2024 12:44 AM CDT Pt speaking in full sentences to son. She has sent him up here multiple times to inform staff that she is SOB. Janae did assess pt and determined no immediate interventions were needed. * Lizabeth Hallman RN - 10/30/2024 11:58 PM CDT Patient's brother asked if I could assist his sister in the bathroom. I entered bathroom in [facility] [place]. Patient was lying in her side with the blanket over her. Patient stated she got dizzy and fell. Patient stated she can no longer wait in the waiting are because she is a fall risk. Nurse offered to assist her back up. Patient was able to stand with one hand assist from nurse. Patient was ableto ambulate to a wheelchair without assistance. Patient told the nurse she needed her blanket wrapped around her not in front of her. Nurse assisted her with her blanket and exiting the restroom. Patient denies pain from fall. * Tino Sanford - 10/30/2024 10:51 PM CDT Triage Protocol EKG [facility] EKG obtained in triage and reviewed by: Dr. Botello at Time: 2246 Patient will: Remain in the waiting room under the triage protocol and will be roomed per usual triage process. Primary triage nurse Connie HERNADEZ notified. * Belinda Hamm RN - 10/30/2024 10:46 PM CDT Patient alert, behavior and orientation appropriate to age. Skin normal for ethnicity, warm., dry. Respirations even and unlabored. Patient Chief Complaint Patient presents with Shortness of Breath Wears 4lpm O2 at all time. Recent fall. Pt reports that she had a syncopal episode this morning. States I woke up face first on the floor . ED triage protocol initiated. No high risk factors, complaints or symptoms assessed or identifiedduring triage screening. Patient in no acute distress and advised that no appropriate treatment room is available. Comfort measures offered. Patient to Waiting Room with instructions to return to Triage desk for worsening symptoms or other concerns. Pt states she got home yesterday and passed out. Pt states she didn't want to wait in the waiting room so she did not come in until today. * Aggie Rivas DO - 10/30/2024 10:37 PM CDT HISTORY OF PRESENT ILLNESS Shortness of Breath Patient is a 59-year-old female with below medical history presenting with complaint of shortness of breath. She also mentions that she passed out and hit her head. It was unclear if this happened before she came to the emergency department or while she was in the waiting room. She says this feels like her normal COPD. Has not had a fever or chest pain or productive cough. She is speaking in full sentences and does not appear distressed, but is asking for BiPAP. PAST MEDICAL HISTORY REVIEWED MEDICAL: Patient has a past medical history of Anxiety, Arthritis, Arthropathy, unspecified, site unspecified, Atrial flutter ([facility]), Bipolar affective disorder ([facility]), Breast cancer ([facility]) (2001), Breast mass (08/22/2010), Cervical neck pain with evidence of disc disease, Chronic hepatic failure ([facility]), Congenital absence of uterus, Congenital absence of vagina, Congenital anomaly, Congestive heart failure ([facility]), Coronary artery disease, Deep vein thrombosis (DVT) ([facility]) (2023), Depression (08/22/2010), Diabetes mellitus ([facility]) (2023), Difficult intravenous access, Dyspnea (08/15/2024), Dyspnea on exertion, Emphysema of lung ([facility]), GERD (gastroesophageal reflux disease), H/O heart artery stent, H/O mastectomy, right, 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), Hereditary hemochromatosis, abnormal cervical Pap smear, Hyperlipidemia, Ischemic cardiomyopathy, Lower extremity edema, OH (myocardial infarction) ([facility]) (2015), Neuropathy, NSTEMI (non-ST elevated myocardial infarction) ([facility]) (06/06/2023), NSTEMI (non-ST elevated myocardial infarction) ([facility]), Paroxysmal A-fib ([facility]), Paroxysmal atrial tachycardia, Pneumonia due to COVID-19 virus, Polycythemia, Primary hereditary hemochromatosis (12/13/2010), Unspecified essential hypertension, and Vaginal cancer ([facility]) (2019). SURGICAL: Patient has a past [...] (Right, 03/30/2024); ptca; vagina reconstruction surgery (1984); pr correction hammertoe (Left, 07/20/2024); splenectomy; and insert midlineiv (10/31/2024). ALLERGIES Ketorolac tromethamine, Prochlorperazine, Propoxyphene, Tramadol, Codeine, and Propoxyphene n-acetaminophen PHYSICAL EXAM INITIAL VS BP: (!) 153/113 (10/30/242239), Heart Rate: 86 bpm (10/30/242239), Resp: 20 (10/30/242239), Pulse: 86 (10/30/242239), Temp: 98.6 ??F (37 ??C) (10/30/242239), Temp src: Oral (10/30/242239), SpO2: 95 % (10/30/242239), Height: 5' 4 (162.6 cm) (10/30/242239), Weight: 104.3 kg (230 lb) (10/30/242239), BMI (Calculated): (!) 39.45 (10/30/242239) No LMP recorded. 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 Physical Exam Vitals and nursing note reviewed. Constitutional: General: She is not in acute distress. Appearance: She is obese. She is not ill-appearing or toxic-appearing. HENT: Head: Normocephalic and atraumatic. Mouth/Throat: Mouth: Mucous membranes are moist. Eyes: Extraocular Movements: Extraocular movements intact. Pupils: Pupils are equal, round, and reactive to light. Cardiovascular: Rate and Rhythm: Normal rate and regular rhythm. Pulses: Normal pulses. Pulmonary: Effort: Pulmonary effort is normal. No respiratory distress. Breath sounds: No decreased breath sounds or wheezing. Abdominal: General: There is no distension. Palpations: Abdomen is soft. Tenderness: There is no abdominal tenderness. Musculoskeletal: General: No swelling or deformity. Cervical back: Normal range of motion and neck supple. Right lower leg: No edema. Left lower leg: No edema. Skin: General: Skin is warm and dry. Neurological: General: No focal deficit present. Mental Status: She is alert and oriented to person, place, and time. Psychiatric: Mood and Affect: Mood normal. Behavior: Behavior normal. DIAGNOSTICS LAB: CBC WITH DIFFERENTIAL - Abnormal Result Value WBC 7.0 NRBCS 2 (*) RBC 2.93 (*) HEMOGLOBIN 8.9 (*) HEMATOCRIT 28.6 (*) MCV 97.6 MCH 30.4 MCHC 31.1 PLATELETS 146 MPV 10.7 RDW 18.0 (*) RDW-STDEV 64.5 (*) NEUTROPHILS 58 LYMPHOCYTES 26 MONOCYTES 13 (*) EOSINOPHILS 1 BASOPHILS 0 IMMATURE GRANULOCYTES 2 NEUTROPHIL ABSOLUTE 4.05 LYMPHOCYTE ABSOLUTE 1.81 MONOCYTE ABSOLUTE 0.92 (*) EOSINOPHIL ABSOLUTE 0.06 BASOPHILS ABSOLUTE 0.03 IMMATURE GRANULOCYTES ABSOLUTE 0.11 (*) SMEAR REVIEWED: NN - No Action Needed COMPREHENSIVE METABOLIC PANEL - Abnormal SODIUM 139 POTASSIUM 4.1 CHLORIDE 99 CO2 28 CALCIUM 9.4 BUN 28 (*) CREATININE 0.69 GLUCOSE 399 (*) TOTAL PROTEIN 6.5 ALBUMIN 3.6 BILIRUBIN TOTAL 0.2 ALKALINE PHOSPHATASE 128 (*) AST 15 ALT 19 GFR >60 ANION GAP 12 TROPONIN BASELINE, 5TH GEN - Abnormal TROPONIN T, BASELINE 5TH GEN 24 (*) BRAIN NATRIURETIC PEPTIDE, BNP OR PROBNP - Abnormal PROBNP, N TERMINAL 247 (*) BLOOD GAS ARTERIAL - Abnormal PH BLOOD POC 7.43 PCO2 POC 44 PO2 POC 94 HCO3 (CALC) POC 29 (*) HEMOGLOBIN POC 12.2 BASE EXCESS POC 5 (*) O2 SATURATION POC 98 SODIUM POC 136 (*) POTASSIUM POC 3.7 HEMATOCRIT POC 37 (*) PH TEMP CORRECT 7.43 PCO2 TEMP CORRECT 44 PO2 TEMP CORRECT 94 SPECIMEN SOURCE, GASES POC Arterial CALCIUM IONIZED POC 5.0 TCO2 (CALC) POC 31 (*) LITER FLOW 4.0 [facility] SITE POC ART PUNCT SOURCE OF OXYGEN POC Cannula TROPONIN 2 HR, 5TH GEN - Abnormal TROPONIN T, 2 HR 5TH GEN 26 (*) DELTA 2HR TROPONIN T 2 PROTIME-INR - Abnormal PROTIME 19.6 (*) INR 1.6 (*) LACTIC ACID - Abnormal LACTIC ACID 2.9 (*) POC GLUCOSE - Abnormal GLUCOSE POC 313 (*) SPECIMEN SOURCE, GLUCOSE POC Capillary LIPASE - Normal LIPASE 21 MAGNESIUM LEVEL - Normal MAGNESIUM 2.0 BLOOD CULTURE BLOOD CULTURE BLOOD CULTURE BLOOD CULTURE TROPONIN 6 HR, 5TH GEN HEMOGLOBIN A1C POC GLUCOSE POC GLUCOSE RADIOLOGY: CTA CHEST W AND/OR WO CONTRAST Radiologist Impression IMPRESSION: Please see below. Exam: CTA CHEST W AND/OR WO CONTRAST Date/Time of Exam: 10/31/2024 9:04 AM REASON FOR EXAM: Pulmonary embolism (PE) suspected, high prob. DIAGNOSIS: See Reason for Exam. Technique: CTA of the chest was performed prior to and/or following the administration of intravenous contrast. Post-processing was performed, including sagittal and coronal reformations and 3-D reconstruction. Contrast (if used): 75 mL Isovue 300 Findings: Comparison is made to the CT of the chest performed 08/18/2024. Evaluation of the segmental and subsegmental branches of the lung periphery is significantly limited by motion artifact. No central pulmonary artery filling defects are identified. No pulmonary artery dilation or right ventricular strain is identified. There is coronary disease. Mild atherosclerotic changes are seen in the thoracic aorta without evidence of flow-limiting stenosis. There is an ovoid area of masslike consolidation in the left lung base measuring 3.6 x 1.5 x 1.4 cm, similar in size and appearance compared to the 08/18/2024 examination. There is minimal atelectasis in the lung bases. The airways are patent. No pneumothorax or pleural effusion. There is no pathologic mediastinal or hilar adenopathy. 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 Hepatomegaly and hepatic steatosis are partially imaged. The imaged abdominal structures are otherwise unremarkable. ACDF changes in the cervicothoracic spine and lordosis are again noted. IMPRESSION: 1. Evaluation of the segmental and subsegmental pulmonary artery branches, significantly limited due to severe motion artifact. No central pulmonary artery filling defect is identified to suggest large volume pulmonary embolus. There is no evidence of right ventricular strain. 2. Masslike consolidation in the left lung base, similar to the prior CT scan performed 08/18/2024. Please see prior report for details. 3. No acute pulmonary process allowing for limitations of motion artifact. 4. Hepatomegaly and hepatic steatosis is again identified. 5. Additional incidental findings as above. CT HEAD WO CONTRAST Radiologist Impression IMPRESSION: Please see below. CT Head Without Contrast Date: 10/31/2024 9:04 AM Reason For Exam: Head trauma, moderate-severe. Diagnosis: See Reason for Exam. Technique: Conventional axial images were obtained through the brain without contrast. Comparison: June 30, 2024 FINDINGS: Examination is limited by patient motion and suboptimal positioning in the scanner. Midline structures are central. Ventricles are nondilated. Mild global volume loss. Parenchyma attenuation is grossly normal. No evidence of brain injury or hemorrhage. Skull base and calvaria intact. Mastoid air cells, middle ear cavities and visualized paranasal sinuses are grossly clear. IMPRESSION: No acute intracranial findings. XR CHEST PA OR AP 1 VW Radiologist Impression IMPRESSION: Please see below. Exam: XR CHEST PA OR AP 1 VW Date/Time of Exam: 10/31/2024 6:18 AM Reason For Exam: Shortness of Breath SOB. Diagnosis: See Reason for Exam. Findings: The AP supine study is compared to the exam of 10/29/2024. Lung volumes are low. There is no pneumothorax. There are trace bilateral pleural effusions, left worse than right. There is minimal hazy left basilar infiltrate or atelectasis. The lungs are otherwise clear. Heart size is probably within normal limits when allowing for the poor depth of inspiration. There is slight prominence of the pulmonary markings also probably secondary to the poor depth of inspiration. No acute bony abnormality is suspected. Postsurgical changes of the cervical spine are again noted. IMPRESSION: Probable trace bilateral pleural effusions, left worse than right. Minimal hazy left basilar infiltrate or atelectasis. EKG: PROCEDURES Procedures MEDICAL DECISION MAKING AND PLAN OF CARE Patient is a 59-year-old female recently discharged from the hospital returning with complaint of shortness of breath Afebrile, hemodynamically stable Has no increased work of breathing with clear breath sounds No significant peripheral edema Will obtain labs, ECG, CXR, CT chest She is complaining of pain in her shoulders. Offered her Tylenol, but she refused. She is wanting narcotic pain medication. Lab interpretation: No leukocytosis. Hemoglobin is 8.9 from previously 12.2. She states that she has had black stools intermittently, but has not told anybody. No electrolyte abnormalities requiring correction, no EDY. Her glucose is 399 with normal anion gap and normal bicarb. Initial troponin is 24. BNP is 247. Lipase is 21. Arterial blood gas was obtained and shows normal pH, normal CO2, bicarb is mildly elevated, likely due to chronic CO2 retention with her history of COPD. Given that she has no significant increased work of breathing, does not appear to have CHF exacerbation, and is not retaining CO2, do not feel she requires BiPAP at this time. Will continue to monitor her respiratory status. ECG: similar to previous ECG from 10/29/2024 NSR, rate 95, normal axis, normal intervals, no pathologic ST segment changes to suggest acute ischemia CT head with no acute injury identified CT chest: IMPRESSION: 1. Evaluation of the segmental and subsegmental pulmonary artery branches, significantly limited due to severe motion artifact. No central pulmonary artery filling defect is identified to suggest large volume pulmonary embolus. There is no evidence of right ventricular strain. 2. Masslike consolidation in the left lung base, similar to the prior CT scan performed 08/18/2024. Please see prior report for details. 3. No acute pulmonary process allowing for limitations of motion artifact. 4. Hepatomegaly and hepatic steatosis is again identified. 5. Additional incidental findings as above. This patient presents with dyspnea Presentation not consistent with CHF, pericardial effusion / tamponade . Presentation not consistent with acute respiratory etiologies to include acute PE (Wells low risk), pneumothorax , asthma, COPD exacerbation, allergic etiologies, or infectious etiologies such as PNA. Presentation also not cons istent with non-cardiopulmonary causes to include toxidromes, metabolic etiologies such as acidemiaor electrolyte derangements, sepsis, neurologic causes (i.e. demyelinating diseases). After my evaluation, patient began complaining of chest pain. Repeat EKG continues to show no ischemic changes. Initial troponin 24. Repeat troponin is 26. BNP is 247. Discussed with hospitalist who will admit the patient for chest pain. Medical Decision Making Amount and/or Complexity of Data Reviewed Labs: ordered. Radiology: ordered. ECG/medicine tests: ordered. Risk OTC drugs. Prescription drug management. Decision regarding hospitalization. Clinical Scoring & Consults Medications Administered During the ED Stay from 10/30/2024 2237 to 10/31/2024 1337 Date/Time Order Dose Route Action 10/31/2024 1229 CDT sodium chloride flush injection 10 mL 10 mL IV Given 10/31/2024 0806 CDT acetaminophen (TYLENOL) tablet 650 mg 650 mg Oral Given 10/31/2024 0827 CDT nitroglycerin (NITROSTAT) tablet 0.4 mg 0.4 mg Sublingual Given 10/31/2024 0810 CDT nitroglycerin (NITROSTAT) tablet 0.4 mg 0.4 mg Sublingual Admin by Another Clinician (Comment) 10/31/2024 1223 CDT sodium chloride flush injection 10 mL 10 mL IV Given 10/31/2024 0904 CDT iopamidoL (ISOVUE-300) 61% injection (drawn from multi-use bulk pack) 75 mL 75 mL IV Contrast Given 10/31/2024 0904 CDT sodium chloride flush injection 10 mL 10 mL IV Given 10/31/2024 1235 CDT aspirin (CARTER CHEWABLE) chewable tablet 81 mg 81 mg Oral Given 10/31/2024 1239 CDT enoxaparin (LOVENOX) injection 100 mg 100 mg subCUT Given 10/31/2024 1235 CDT furosemide (LASIX) tablet 80 mg 80 mg Oral Given 10/31/2024 1235 CDT isosorbide mononitrate (IMDUR) SR 24 hour tablet 30 mg 30 mg Oral Given 10/31/2024 1235 CDT metoprolol succinate (TOPROL XL) SR 24 hour tablet 25 mg 25 mg Oral Given 10/31/2024 1238 CDT ranolazine ER (RANEXA) SR 12 hour tablet 500 mg 500 mg Oral Given 10/31/2024 1236 CDT sacubitriL-valsartan (ENTRESTO) 24-26 mg tablet 1 Tablet 1 Tablet Oral Given 10/31/2024 1224 CDT sodium chloride flush injection 10 mL 10 mL IV Given 10/31/2024 1102 CDT morphine 4 mg/mL injection 2 mg 2 mg IV Given 10/31/2024 1225 CDT HYDROcodone-acetaminophen (NORCO) 10-325 mg per tablet 1 Tablet 1 Tablet Oral Given 10/31/2024 1226 CDT methylPREDNISolone sodium succinate (SOLU-Medrol) 40 mg in sterile water 1 mL injection 40 mg IV Given 10/31/2024 1247 CDT insulin lispro (HumaLOG,ADMELOG) injection 0-12 Units 6 Units subCUT Given 10/31/2024 1232 CDT fluticasone furoate-vilanteroL (BREO ELLIPTA) 100-25 mcg/dose inhaler 1 Puff 1 Puff Inhalation Given 10/31/2024 1231 CDT umeclidinium (INCRUSE ELLIPTA) 62.5 mcg/actuation inhaler 1 Puff 1 Puff Inhalation Given . New Prescriptions for this Encounter LAST VS BP: (!) 142/68 (10/31/24 1200), Heart Rate: 99 bpm (10/31/24 1251), Resp: 28 (10/31/24 1251), Pulse: 99 (10/31/24 1251), Temp: 98.6 ??F (37 ??C) (10/30/24 2240), Temp src: Oral (10/30/24 224), SpO2:92 % (10/31/24 1251) CLINICAL IMPRESSION Diagnoses Diagnosis Comment Added By Time Added Chest pain, unspecified type [R07.9] Aggie Rivas DO 10/31/2024 10:44 AM Shortness of breath [R06.02] Aggie Rivas DO 10/31/2024 10:44 AM DISPOSITION, EDUCATION AND MEDICATION RECONCILIATION Medications reconciled. See after visit summary for patient education on discharged patients. ED Disposition ED Disposition Admit Condition Stable User Aggie Rivas DO Date/Time ThuOct 31, 2024 10:44 AM Comment -- ATTESTATION STATEMENTS Diagnoses Diagnosis Comment Added By Time Added Chest pain, unspecified type [R07.9] Aggie Rivas DO 10/31/2024 10:44 AM Shortness of breath [R06.02] Aggie Rivas DO 10/31/2024 10:44 AM documented in this encounter Miscellaneous Notes * Query - James Lee MD - 11/05/2024 1:21 PM CDT Question: Indicate if there remains a suspect diagnosis responsible for syncope (after study), or that remains under workup and not ruled out: Answer: Other explanation for clinical findings (Specify) unknown * Care Plan - Julissa Redmond RCP - 11/04/2024 1:11 PM CDT Problem: Respiratory Goal: Achieve optimal respiratory function by discharge and/or maintain baseline function Outcome: Progressing Flowsheets Taken 11/04/2024 1310 Aspiration Precautions: awake/alert before oral intake HOB elevated Taken 11/04/2024 1208 Neb Tx Status: given Taken 11/04/2024 1159 Respiratory Care Plan Problems: Bronchospasm, potential or actual Ventilation/oxygenation, impaired Respiratory Interventions: Monitor for level of consciousness change Calming/relaxation techniques utilized Supplemental oxygen Activity promoted Cough and deep breathing encouraged Effective breathing techniques encouraged Weaning O2 as tolerated Note: Patient currently on 4L NC tolerating well,. * Care Plan - Brayden Mcgovern GN - 11/03/2024 6:22 PM CDT Shift Summary Pain was managed with multiple administrations of HYDROcodone-acetaminophen and morphine in [address] [facility], resulting in denial of pain by end of shift. Blood culture is in progress and preliminary results are currently negative; WBC count was elevatedand excoriation was noted but no new skin integrity concerns were documented. Fall risk precautions were maintained throughout the shift with regular safety checks and no falls or injuries reported. Mobility remained at Level 5 with assistance/supervision and no independent ambulation. Overall, pain control and safety goals were met, and infection prevention measures were maintained. Infection, Risk/Actual: Infection Prevention/Resolution/Control: Blood culture is in progress and preliminary results are currently negative; WBC count is elevated and skin assessments noted excoriation but no additional skin assessments were required during the shift. Verbalizes/displays acceptable comfort level or baseline comfort level: Pain ratings increased throughout the morning and early afternoon, but after administration of HYDROcodone-acetaminophen and morphine in [address] [facility], pain was denied by end of shift. Infection Risk/Actual: Infection prevention, control, or resolution by discharge: Blood culture remains in progress and no new skin integrity concerns were documented during the shift. Safety/Fall: Absence of fall, injury, harm during hospitalization: Fall risk armband remained in place, safety checks were completed regularly, and no falls or injuries were documented during the shift. 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 Referrals Status: Preferred Pharmacy: [id number] - [facility] [address] [facility] Patient / Family Communications Resources Provided Transportation Plan Alla Marie Follow Up Appointments Scheduled Sydni Santana RN * Care Plan - Sydni Santana RN - 11/03/2024 8:18 AM CDT Problem: Discharge Planning Goal: Identify discharge needs upon admission and through discharge Description: Outcome: Progressing Care Management Initial Assessment Initial Discharge Planning Assessment completed. Discussed Care Management's role and Discharge planning. Plan Discharge To: Home or Self Care Does the patient have family and/or a caregiver that is willing, able and available to assist if needed? Alla Marie Comments: Independent at home. Has a WC and a walker and wears O2 2-3 l continuously Patient Discharge Planning Goal: home with assist from alla Dc Patient will potentially discharge to a SNF/NH? No Care Management visited with: patient via in person. Prior to admission, patient resides at: own home. Patient resides in a 1 story home with 6 stairs to enter. Patient's bedroom and bathroom are located on the 1 floor. Prior to admission, living arrangements: lives alone. Prior to admission, patient's functional level:independent; uses wheeled walker for mobility; needsassistance with iADLs: N/A Community Ambulator: yes Prior to admission, the patient has the following DME? Yes shower chair, wheeled walker, grab bars,nebulizer, and oxygen 2-3L/min continuous (concentrator) Services in the home/community: none Serviced by n/a Receives hemodialysis? No Emergency contact(s): Extended Emergency Contact Information Primary Emergency Contact: SUSIE MARIERY Mobile Relation: Friend Prescription coverage: yes Preferred Pharmacy verified: [facility] #[id number] - [place] [address] [facility] Insurance coverage verified: Payor: MEDICAID / Plan: MEDICAID [place] / Product Type: Medicaid / Secondary Insurance:N/A Medicaid Status: NA Has VA Benefits: no Employment Status: not employed PCP verified as: Delta Wade MD Patient has had a stay at an acute care hospital in the last 30 days. Recent Falls?: Last Known Fall: During the current hospitalization Fall this Admission?: 11/02/24 Plan for transportation at discharge: TBD Care Management contact information provided. Care Management will continue to follow and assist asneeded. * Care Plan - J Luis Alicea RN - 11/02/2024 5:36 PM CDT Shift Summary Blood glucose levels increased significantly during the shift, reaching a high panic value in the afternoon and insulin was administered in response. Pain was managed with multiple administrations of HYDROcodone-acetaminophen and morphine throughoutthe day. Dyspnea on exertion persisted, oxygen therapy was adjusted, and ipratropium- albuterol was given forshortness of breath. High fall risk was identified and interventions were implemented, with no reported falls or injuries. Overall, comfort, safety, and respiratory support were maintained, and discharge planning was reviewed with the patient and healthcare team. Verbalizes/displays acceptable comfort level or baseline comfort level: Pain was present in the upper back at the start of the shift, with moderate pain managed by HYDROcodone-acetaminophen and morphine, and pain interventions were repeated throughout the day. Safety/Fall: Absence of fall, injury, harm during hospitalization: High fall risk was consistently identified and interventions were implemented with no reported falls or injuries during the shift. Identify discharge needs upon admission and through discharge: Discharge goal of 'Home' was reviewed multiple times with the patient and healthcare team throughout the shift. Achieve optimal respiratory function by discharge and/or maintain baseline function: Dyspnea on exertion persisted throughout the shift, oxygen therapy was adjusted, and ipratropium-albuterol was administered for shortness of breath; SpO2 remained stable and respiratory effort was good. Achieve optimal nutrition and fluid status to meet metabolic needs throughout hospitalization: Nutrition intake was adequate, with 100% of lunch consumed and 800 mL oral intake documented during midday. * Care Plan - Vianca Calderon LPN - 11/01/2024 4:08 PM CDT Hourly rounding completed, patient complains of constant back pain throughout this shift, expressessome relief with IV pain medication, family visitors at bedside on this shift, patient can ambulatetot he restroom with 1 assist and a walker, on 3L Nasal [place], eating normally, resting some in between care, will continue to monitor. 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 OT-Home with 24-hour supervision (11/01/24 1041) PT-Pending Preferred Pharmacy: [facility] #[id number] - [address] Patient / Family Communications Resources Provided Transportation Plan May need assist at discharge Follow Up Appointments Scheduled Cindy Hinkle, MARICARMEN * Care Plan - Cindy Hinkle RN - 11/01/2024 9:41 AM CDT Problem: Discharge Planning Goal: Identify discharge needs upon admission and through discharge Description: Outcome: Progressing Clinical documentation reviewed. Comprehensive Discharge Planning Risk Assessment was completed. Documentation Related to CDPA score CDPA Documentation Ambulation: assistive equipment Transferring: assistive equipment Toileting: assistive equipment Bathing: independent Dressing: independent Eating: independent Communication: understands/communicates w/o difficulty Weight-Bearing Status: no weight-bearing restrictions Living Arrangements: Lives with friend/caregiver Total Score of 9 or below does not identify immediate needs for discharge. CDPA Risk Score Total Score: 7 3 Disability 4 Age Criteria that do not apply: Self-reported walking limitation Prior Living Status Please place consult if needs for discharge are identified. Care Management will continue to follow for discharge planning. * Care Plan - Zara Camejo RN - 11/01/2024 5:19 AM CDT Shift Summary Severe upper back pain was managed with morphine and HYDROcodone-acetaminophen, resulting in sustained pain relief and comfort. Multiple insulin administrations were required due to persistently high blood glucose levels, with a critical value prompting provider notification and further intervention. Hygiene and skin care were maintained with CHG bathing and linen changes, and no new wounds were documented. Safety checks and fall risk assessments were completed, with no falls or injuries reported. Patient remained comfortable and stable with no acute changes in condition during the shift. Infection, Risk/Actual: Infection Prevention/Resolution/Control: No new wounds or changes in wound status were documented, and hygiene care was performed with CHG and perineal cleansing during the shift. Verbalizes/displays acceptable comfort level or baseline comfort level: Upper back pain was severe at the start of the shift but improved after administration of pain medications, with pain relief sustained and no pain reported later in the shift. Infection Risk/Actual: Infection prevention, control, or resolution by discharge: No abnormal findings related to infection were noted in the CBC, and skin interventions included bathing and linen changes. Safety/Fall: Absence of fall, injury, harm during hospitalization: Safety checks were completed andfall risk was reviewed, with no falls or injuries reported during the shift. Identify discharge needs upon admission and through discharge: Patient's individualized goal is to get stronger, and ambulation occurred with assistance and a walker; no family or caregiver contact was documented this shift. * Gen AI ED Handoff - GENERATIVE AI HANDOFF NOTE - 10/31/2024 5:40 PM CDT SITUATION: Patient ( ) is a 59-year-old female who has been in the ER for 19 hours. She came to the ER due to shortness of breath. The patient's most recent care team on record included: Tiffanie Lopez. BACKGROUND: This patient has allergies to Ketorolac Tromethamine, Prochlorperazine, Propoxyphene, Tramadol, Codeine, Propoxyphene N-acetaminophen. ASSESSMENT: Patient's most recent vitals recorded in flowsheets were as follows: BP: 141/75 T: 98.6 F RR: 21 SPO2: 93% HR: 83 WT: 230.0 LBS BMI: 39.48 Most recent Glucose Value: 313. Completed: 2024-10-31 13:04. Last recorded oxygen source was nasal cannula. The patient, Le Diaz, presents with shortness of breath and chest pain, and reports a recent syncopal episode resulting in a fall. She has a history of coronary artery disease, COPD, congestive heart failure, insulin-dependent diabetes mellitus, and obesity. She has experienced multiple admissions recently, including a recent discharge for COPD exacerbation. The patient has a masslike consolidation in the left lung base, hepatomegaly, and hepatic steatosis. She is on anticoagulation therapy due to a history of pulmonary embolism and has difficult intravenous access. Her hemoglobin is low at 8.9, indicating anemia, and her glucose level is elevated at 399, suggesting poor diabetes control. She is a fall risk and has trace bilateral pleural effusions. RECOMMENDATION: Admit the patient for further evaluation and management of chest pain and shortness of breath. Continue Lovenox and Coumadin for anticoagulation, monitoring INR daily until therapeutic. Resume treatment with antibiotics and Solu-Medrol for possible COPD exacerbation. Monitor respiratory status and consider pulmonology consult for lung mass and COPD management. Conduct repeat echocardiogram and carotid ultrasound due to syncopal episode. Monitor on telemetry and consider cardiology consult for chest pain management. Continue home cardiology medications including metoprolol, Entresto, Imdur, Ranexa, and aspirin. Address anemia and elevated glucose levels with appropriate interventions. Consider physical therapy and occupational therapy consults for rehabilitation due to fall risk. Ensure midline catheter care and avoid blood pressures on the arm with the catheter. *This summary was created by [email or web address]. The responses are meant to enhance, not replace normal workflow. Please contact the ED nurse for any additional information.* * Care Plan - Tasha Glynn RN - 10/31/2024 8:32 AM CDT Le 's midline IV will remain free from infection. * ED Bed Hold Comment Note - Winsome Steward RN - 10/31/2024 6:02 AM CDT Bed: 05 Expected date: 10/31/24 Expected time: 5:55 AM Means of arrival: Comments: Triage * Care Plan - Pierce Purvis RN - 10/31/2024 1:13 AM CDT Le 's peripheral IV will remain free from infection. documented in this encounter Plan of Treatment Upcoming Encounters Date Type Department Care Team (Late st Contact Info) Description 11/08/2024 8:00 AM CDT Office Visit [facility] Op[facility] [place] 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 [address] [place] [address] James Lee MD [address] [place] [address] Gricel Mcgovern PA [address] [place] [address] Scheduled Referrals Name Type Priority Associated Diagnoses Order Schedule AMB REFERRAL TO FAMILY PRACTICE Outpatient Referral Routine Chest pain, unspecified type Ordered: 11/04/2024 AMB REFERRAL TO ENDOCRINOLOGY Outpatient Referral Routine Type 2 diabetes mellitus with hyperglycemia, with long-term current use of insulin ([facility]) Ordered: 11/04/2024 AMB REFERRAL TO PULMONARY Outpatient Referral Routine Abnormal chest CT Ordered: 11/04/2024 AMB REFERRAL TO HOME CARE Outpatient Referral Routine Acute on chronic combined systolic and diastolic CHF (congestive heart failure) ([facility]) Ordered: 11/04/2024 documented as of this encounter Goals Goal Patient Goal Type Associated Problems Recent Progress Patient-Stated? Author Heart Failure Goal Care Plan Heart Failure Problem No Latonya Anguiano, MARGOT documented as of this encounter Procedures Procedure Name Priority Date/Time Associated Diagnosis Comments TELEMETRY REPORT 11/07/2024 3:46 AM CDT POC GLUCOSE Routine 11/04/2024 2:11 PM CDT POC GLUCOSE Routine 11/04/2024 12:49 PM CDT POC GLUCOSE Routine 11/04/2024 11:28 AM CDT OT EVAL AND TREAT Routine 11/04/2024 8:4 2 AM CDT POC GLUCOSE Routine 11/04/2024 7:10 AM CDT PROTIME-INR Routine 11/04/2024 4:45 AM CDT CBC WITHOUT DIFFERENTIAL Routine 11/04/2024 4:45 AM CDT COMPREHENSIVE METABOLIC PANEL Routine 11/04/2024 4:45 AM CDT POC GLUCOSE Routine 11/03/2024 7:43 PM CDT POC GLUCOSE Routine 11/03/2024 5:54 PM CDT PROTIME-INR Routine 11/03/2024 5:04 PM CDT POC GLUCOSE Routine 11/03/2024 11:05 AM CDT OT EVAL AND TREAT Routine 11/03/2024 10: 45 AM CDT PROTIME-INR Routine 11/03/2024 10:40 AM CDT CBC WITHOUT DIFFERENTIAL Routine 11/03/2024 10:40 AM CDT COMPREHENSIVE METABOLIC PANEL Routine 11/03/2024 10:40 AM CDT POC GLUCOSE Routine 11/03/2024 7:16 AM CDT POC GLUCOSE Routine 11/03/2024 5:28 AM CDT POC GLUCOSE Routine 11/03/2024 1:18 AM CDT POC GLUCOSE Routine 11/02/2024 8:53 PM CDT POC GLUCOSE Routine 11/02/2024 4:02 PM CDT POC GLUCOSE Routine 11/02/2024 11:49 AM CDT ECHOCARDIOGRAM W/ CONTRAST AGENT Routine 11/02/2024 9:31 AM CDT POC GLUCOSE Routine 11/02/2024 7:19 AM CDT POC GLUCOSE Routine 11/02/2024 6:13 AM CDT POC GLUCOSE Routine 11/02/2024 5:15 AM CDT LACTIC ACID Stat 11/02/2024 4:33 AM CDT PROTIME-INR Routine 11/02/2024 4:33 AM CDT CBC WITHOUT DIFFERENTIAL Routine 11/02/2024 4:33 AM CDT COMPREHENSIVE METABOLIC PANEL Routine 11/02/2024 4:33 AM CDT POC GLUCOSE Routine 11/02/2024 4:06 AM CDT POC GLUCOSE Routine 11/02/2024 2:54 AM CDT POC GLUCOSE Routine 11/02/2024 1:55 AM CDT POC GLUCOSE Routine 11/02/2024 12:53 AM CDT POC GLUCOSE Routine 11/01/2024 9:58 PM CDT LACTIC ACID Routine 11/01/2024 9:10 PM CDT OSMOLALITY Routine 11/01/2024 9:10 PM CDT BASIC METABOLIC PANEL Routine 11/01/2024 9:10 PM CDT POC GLUCOSE Routine 11/01/2024 4:35 PM CDT POC GLUCOSE Routine 11/01/2024 11:29 AM CDT US CAROTID DOPPLER Routine 11/01/2024 8: 04 AM CDT POC GLUCOSE Routine 11/01/2024 7:31 AM CDT POC GLUCOSE Routine 11/01/2024 4:29 AM CDT COMPREHENSIVE METABOLIC PANEL Routine 11/01/2024 4:02 AM CDT PROTIME-INR Routine 11/01/2024 4:01 AM CDT CBC WITHOUT DIFFERENTIAL Routine 11/01/2024 4:01 AM CDT POC GLUCOSE Routine 11/01/2024 2:49 AM CDT POC GLUCOSE Routine 10/31/2024 8:53 PM CDT TROPONIN 6 HR, 5TH GEN Timed Study 1:53 PM CDT BLOOD CULTURE Stat 10/31/2024 1:24 PM CDT BLOOD CULTURE Stat 10/31/2024 1:24 PM CDT POC GLUCOSE Stat 10/31/2024 12:45 PM CDT LACTIC ACID Stat 10/31/2024 11:49 AM CDT OT EVAL AND TREAT Stat 10/31/2024 11: 47 AM CDT RT ASSESS AND TREAT Stat 10/31/2024 1 0:20 AM CDT CTA CHEST W AND/OR WO CONTRAST Stat 10/31/2024 9:[address] HEAD WO CONTRAST Stat 10/31/2024 9 :04 AM CDT TROPONIN 2 HR, 5TH GEN Timed Study 5 8:07 AM CDT PROTIME-INR Stat 10/31/2024 8:07 AM CDT MAGNESIUM LEVEL Stat 10/31/2024 8:07 AM CDT EKG 12-LEAD Stat 10/31/2024 8:03 AM CDT BLOOD GAS ARTERIAL Stat 10/31/2024 6: 38 AM CDT RT ASSESS AND TREAT Stat 10/31/2024 6 :29 AM CDT XR CHEST PA OR AP 1 VW Stat 6:18 AM CDT BRAIN NATRIURETIC PEPTIDE, BNP OR PROBNP Stat 10/31/2024 6:16 AM CDT CBC WITH DIFFERENTIAL Stat 10/31/2024 3:08 AM CDT HEMOGLOBIN A1C Stat 10/31/2024 3:08 AM CDT TROPONIN BASELINE, 5TH GEN Stat 10/31/2024 1:11 AM CDT LIPASE Stat 10/31/2024 1:11 AM CDT COMPREHENSIVE METABOLIC PANEL Stat 10/31/2024 1:11 AM CDT EKG 12-LEAD Stat 10/30/2024 10:47 PM CDT documented in this encounter Results * TELEMETRY REPORT (11/07/2024 3:46 AM CDT) Provider Scanning ECG ORDERABLES Final Result * (ABNORMAL) POC GLUCOSE (11/04/2024 2:11 PM CDT) GLUCOSE POC 277(H) 74 - 99 mg/dL 11/04/2024 2:11 PM CDT [facility] SPECIMEN SOURCE, GLUCOSE POC Capillary 11/04/2024 2:11 PM CDT [facility] Blood, whole 11/04/2024 2:11 PM CDT 11/04/2024 2:19 PM CDT James Lee MD POINT OF CARE TESTING Final Res ult Performing Organization Address City/[facility]/ZIP Co de Phone Number [facility] CLIA # [id number] [address] [facility] [place] [address] * (ABNORMAL) POC GLUCOSE (11/04/2024 12:49 PM CDT) GLUCOSE POC 333(H) 74 - 99 mg/dL 11/04/2024 12:49 PM CDT [facility] SPECIMEN SOURCE, GLUCOSE POC Capillary 11/04/2024 12:49 PM CDT [facility] Blood, whole 11/04/2024 12:4 9 PM CDT 11/04/2024 12:57 PM CDT James Lee MD POINT OF CARE TESTING Final Res ult [facility] CLIA # [id number] [address] [place] [address] * (ABNORMAL) POC GLUCOSE (11/04/2024 11:28 AM CDT) GLUCOSE POC 316(H) 74 - 99 mg/dL 11/04/2024 11:28 AM CDT [facility] SPECIMEN SOURCE, GLUCOSE POC Capillary 11/04/2024 11:28 AM CDT [facility] Blood, whole 11/04/2024 11:2 8 AM CDT 11/04/2024 11:41 AM CDT James Lee MD POINT OF CARE TESTING Final Res ult Performing Organization Address City/[facility]/ZIP Co de Phone Number [facility] CLIA # [id number] [address] [address] * (ABNORMAL) POC GLUCOSE (11/04/2024 7:10 AM CDT) [facility] Signature GLUCOSE POC 201(H) 74 - 99 mg/dL 11/04/2024 7:10 AM CDT [facility] SPECIMEN SOURCE, GLUCOSE POC Capillary 11/04/2024 7:10 AM CDT [facility] Blood, whole 11/04/2024 7:10 AM CDT 11/04/2024 7:18 AM CDT us James Lee MD POINT OF CARE TESTING Final Res ult [facility] CLIA # [id number] [address] [facility] [place] [address] * (ABNORMAL) COMPREHENSIVE METABOLIC PANEL (11/04/2024 4:45 AM CDT) SODIUM 140 136 - 145 mmol/L 11/04/2024 5:32 AM [facility] POTASSIUM 4.1 3.5 - 5.1 mmol/L 11/04/2024 5:32 AM [facility] CHLORIDE 106 98 - 107 mmol/L 11/04/2024 5:32 AM [facility] CO2 23 22 - 29 mmol/L 11/04/2024 5:32 AM [facility] CALCIUM 9.1 8.6 - 10.0 mg/dL 11/04/2024 5:32 AM [facility] BUN 19 6 - 20 mg/dL 11/04/2024 5:32 AM [facility] CREATININE 0.56 0.51 - 0.95 mg/dL 11/04/2024 5:32 AM [facility] GLUCOSE 248(H) 74 - 99 mg/dL 11/04/2024 5:32 AM [facility] [facility] TOTAL PROTEIN 6.0(L) 6.4 - 8.3 g/dL 11/04/2024 5:32 AM [facility] ALBUMIN 3.4(L) 3.5 - 5.2 g/dL 11/04/2024 5:32 AM [facility] BILIRUBIN TOTAL 0.2 0.0 - 1.0 mg/dL 11/04/2024 5:32 AM [facility] ALKALINE PHOSPHATASE 114(H) 35 - 104 U/L 11/04/2024 5:32 AM [facility] AST 13 10 - 35 U/L 11/04/2024 5:32 AM [facility] ALT 24 <=35 U/L 11/04/2024 5:32 AM [facility] GFR >60 >=60 mL/min/1.7 3 sq meter 11/04/2024 5:32 AM [facility] Comment:eGFR calculated with 2020 CKD-EPI equation. Vegetarian diet, extremely high or low muscle mass, and may affect results. Cystatin C with Glomerular Filtration Rate is a suitable alternative for these patients. ANION GAP 11 9 - 20 mmol/L 11/04/2024 5:32 AM T [facility] Blood Venipuncture / Unknown 11/04/2024 4:45 AM CDT 11/04/2024 4:56 AM CDT Danyell Dewitt MD CHEMISTRY ORDERABLES Final Result [facility] CLIA # [id number] [address] [address] * (ABNORMAL) CBC WITHOUT DIFFERENTIAL (11/04/2024 4:45 AM CDT) WBC 9.9 4.8 - 10.8 K/uL 11/04/2024 5:06 AM T [facility] NRBCS 1(H) <1 % 11/04/2024 5:06 AM [facility] RBC 3.82(L) 4.20 - 5.40 M/uL 11/04/2024 5:06 AM [facility] HEMOGLOBIN 11.4(L) 12.0 - 16.0 g/dL 11/04/2024 5:06 AM [facility] HEMATOCRIT 37.5 36.0 - 46.0 % 11/04/2024 5:06 AM [facility] MCV 98.2 84.0 - 103.0 fL 11/04/2024 5:06 AM [facility] MCH 29.8 27.0 - 34.0 pg 11/04/2024 5:06 AM [facility] MCHC 30.4 30.0 - 35.0 g/dL 11/04/2024 5:06 AM [facility] PLATELETS 207 140 - 440 K/uL 11/04/2024 5:06 AM [facility] MPV 11.2 8.9 - 12.8 fL 11/04/2024 5:06 AM [facility] RDW 18.2(H) 11.0 - 14.5 % 11/04/2024 5:06 AM CDT [facility] RDW-STDEV 65.2(H) 37.0 - 54.0 fL 11/04/2024 5:06 AM CDT [facility] Blood Venipuncture / Unknown 11/04/2024 4:45 AM CDT 11/04/2024 4:57 AM CDT Danyell Dewitt MD HEMATOLOGY ORDERABLES Final Result [facility] CLIA # [id number] [address] [place] [address] * (ABNORMAL) PROTIME-INR (11/04/2024 4:45 AM CDT) PROTIME 27.0(H) 12.7 - 14.9 Seconds 11/04/2024 5:20 AM CDT [facility] INR 2.4(H) 0.8 - 1.2 11/04/2024 5:20 AM CDT [facility] Blood Venipuncture / Unknown 11/04/2024 4:45 AM CDT 11/04/2024 4:57 AM CDT Narrative [facility] - 11/04/2024 5:20 AM CDT Expected Values for INR: DVT/PE Goal INR 2.5; range 2.0 - 3.0 Valve Replacement Tissue Goal INR 2.5; range 2.0 - 3.0 Valve Replacement Mechanical Goal INR 3.0; range 2.5 - 3.5 POST-OH Goal INR 2.5; range 2.0 - 3.0 or Goal INR 3.0; range 2.5 - 3.5 Atrial Fibrillation Goal INR 2.5; range 2.0 - 3.0 Ischemic Stroke Goal INR 2.5; range 2.0 - 3.0 Danyell Dewitt MD HEMATOLOGY ORDERABLES Final Result Performing Organization Address [facility] Co de Phone Number [facility] CLIA # [id number] [address] [facility] [place], [place] [id number] * (ABNORMAL) POC GLUCOSE (11/03/2024 7:43 PM CDT) GLUCOSE POC 378(H) 74 - 99 mg/dL 11/03/2024 7:43 PM CDT [facility] SPECIMEN SOURCE, GLUCOSE POC Capillary 11/03/2024 7:43 PM CDT [facility] Blood, whole 11/03/2024 7:43 PM CDT 11/03/2024 10:33 PM CDT us James Lee MD POINT OF CARE TESTING Final Res ult Performing Organization Address [facility] Co de Phone Number [facility] CLIA # [id number] [address] [address] [place], [place] [id number] * (ABNORMAL) POC GLUCOSE (11/03/2024 5:54 PM CDT) GLUCOSE POC 414(HH) 74 - 99 mg/dL 11/03/2024 5:54 PM CDT [facility] SPECIMEN SOURCE, GLUCOSE POC Capillary 11/03/2024 5:54 PM CDT [facility] Blood, whole 11/03/2024 5:54 PM CDT 11/03/2024 6:06 PM CDT James Lee MD POINT OF CARE TESTING Final Res ult Performing Organization Address [facility]/ZIP Co de Phone Number [facility] CLIA # [id number] [address] [place] [address] * (ABNORMAL) PROTIME-INR (11/03/2024 5:04 PM CDT) Pathologist [facility] PROTIME 23.6(H) 12.7 - 14.9 Seconds 11/03/2024 5:28 PM CDT [facility] INR 2.0(H) 0.8 - 1.2 11/03/2024 5:28 PM CDT [facility] Blood Venipuncture / Unknown 11/03/2024 5:04 PM CDT 11/03/2024 5:08 PM CDT Narrative [facility] - 11/03/2024 5:28 PM CDT Expected Values for INR: DVT/PE Goal INR 2.5; range 2.0 - 3.0 Valve Replacement Tissue Goal INR 2.5; range 2.0 - 3.0 Valve Replacement Mechanical Goal INR 3.0; range 2.5 - 3.5 POST-OH Goal INR 2.5; range 2.0 - 3.0 or Goal INR 3.0; range 2.5 - 3.5 Atrial Fibrillation Goal INR 2.5; range 2.0 - 3.0 Ischemic Stroke Goal INR 2.5; range 2.0 - 3.0 James Lee MD HEMATOLOGY ORDERABLES Final Res ult [facility] CLIA # [id number] [address] [place] [address] * (ABNORMAL) POC GLUCOSE (11/03/2024 11:05 AM CDT) Pathologist [facility] GLUCOSE POC 277(H) 74 - 99 mg/dL 11/03/2024 11:05 AM CDT [facility] SPECIMEN SOURCE, GLUCOSE POC Capillary 11/03/2024 11:05 AM CDT [facility] Blood, whole 11/03/2024 11:0 5 AM CDT 11/03/2024 11:17 AM CDT James Lee MD POINT OF CARE TESTING Final Res ult [facility] YAKELIN # [id number] [facility] [address] [place] [address] * (ABNORMAL) COMPREHENSIVE METABOLIC PANEL (11/03/2024 10:40 AM CDT) SODIUM 139 136 - 145 mmol/L 11/03/2024 11:21 AM T [facility] POTASSIUM 4.6 3.5 - 5.1 mmol/L 11/03/2024 11:21 AM T [facility] CHLORIDE 104 98 - 107 mmol/L 11/03/2024 11:21 AM [facility] CO2 26 22 - 29 mmol/L 11/03/2024 11:21 AM [facility] CALCIUM 9.2 8.6 - 10.0 mg/dL 11/03/2024 11:21 AM T [facility] BUN 24(H) 6 - 20 mg/dL 11/03/2024 11:21 AM [facility] CREATININE 0.65 0.51 - 0.95 mg/dL 11/03/2024 11:21 AM [facility] GLUCOSE 325(H) 74 - 99 mg/dL 11/03/2024 11:21 AM [facility] TOTAL PROTEIN 6.2(L) 6.4 - 8.3 g/dL 11/03/2024 11:21 AM [facility] ALBUMIN 3.4(L) 3.5 - 5.2 g/dL 11/03/2024 11:21 AM [facility] BILIRUBIN TOTAL 0.2 0.0 - 1.0 mg/dL 11/03/2024 11:21 AM [facility] ALKALINE PHOSPHATASE 121(H) 35 - 104 U/L 11/03/2024 11:21 AM [facility] AST 17 10 - 35 U/L 11/03/2024 11:21 AM T [facility] ALT 25 <=35 U/L 11/03/2024 11:21 AM T [facility] GFR >60 >=60 mL/min/1.7 3 sq meter 11/03/2024 11:21 AM T [facility] Comment:eGFR calculated with 2020 CKD-EPI equation. Vegetarian diet, extremely high or low muscle mass, and may affect results. Cystatin C with Glomerular Filtration Rate is a suitable alternative for these patients. ANION GAP 9 9 - 20 mmol/L 11/03/2024 11:21 AM T [facility] Blood Venipuncture / Unknown 11/03/2024 10:40 AM CDT 11/03/2024 10:48 AM CDT Danyell Dewitt MD CHEMISTRY ORDERABLES Final Result Performing Organization Address City/State/[facility] Co de Phone Number [facility] CLIA # [id number] [address] [place] [address] * (ABNORMAL) CBC WITHOUT DIFFERENTIAL (11/03/2024 10:40 AM CDT) WBC 11.4(H) 4.8 - 10.8 K/uL 11/03/2024 11:06 AM [facility] NRBCS 1(H) <1 % 11/03/2024 11:06 AM T [facility] RBC 3.85(L) 4.20 - 5.40 M/uL 11/03/2024 11:06 AM [facility] HEMOGLOBIN 11.3(L) 12.0 - 16.0 g/dL 11/03/2024 11:06 AM [facility] HEMATOCRIT 37.9 36.0 - 46.0 % 11/03/2024 11:06 AM [facility] MCV 98.4 84.0 - 103.0 fL 11/03/2024 11:06 AM CDT [facility] MCH 29.4 27.0 - 34.0 pg 11/03/2024 11:06 AM CDT [facility] MCHC 29.8(L) 30.0 - 35.0 g/dL 11/03/2024 11:06 AM CDT [facility] PLATELETS 219 140 - 440 K/uL 11/03/2024 11:06 AM CDT [facility] MPV 11.2 8.9 - 12.8 fL 11/03/2024 11:06 AM CDT [facility] RDW 18.2(H) 11.0 - 14.5 % 11/03/2024 11:06 AM CDT [facility] RDW-STDEV 66.3(H) 37.0 - 54.0 fL 11/03/2024 11:06 AM CDT [facility] Blood Venipuncture / Unknown 11/03/2024 10:40 AM CDT 11/03/2024 10:48 AM CDT us Danyell Dewitt MD HEMATOLOGY ORDERABLES Final Result [facility] CLIA # [id number] [address] [place] [address] [place] [address] * (ABNORMAL) PROTIME-INR (11/03/2024 10:40 AM CDT) PROTIME 27.3(H) 12.7 - 14.9 Seconds 11/03/2024 11:11 AM CDT [facility] INR 2.4(H) 0.8 - 1.2 11/03/2024 11:11 AM CDT [facility] Blood Venipuncture / Unknown 11/03/2024 10:40 AM CDT 11/03/2024 10:48 AM CDT Narrative [facility] - 11/03/2024 11:11 AM CDT Expected Values for INR: DVT/PE Goal INR 2.5; range 2.0 - 3.0 Valve Replacement Tissue Goal INR 2.5; range 2.0 - 3.0 Valve Replacement Mechanical Goal INR 3.0; range 2.5 - 3.5 POST-OH Goal INR 2.5; range 2.0 - 3.0 or Goal INR 3.0; range 2.5 - 3.5 Atrial Fibrillation Goal INR 2.5; range 2.0 - 3.0 Ischemic Stroke Goal INR 2.5; range 2.0 - 3.0 us Danyell Dewitt MD HEMATOLOGY ORDERABLES Final Result Performing Organization Address [facility] Co de Phone Number [facility] CLIA # [id number] [address] [place], [place] [phone] * (ABNORMAL) POC GLUCOSE (11/03/2024 7:16 AM CDT) GLUCOSE POC 265(H) 74 - 99 mg/dL 11/03/2024 7:16 AM CDT [facility] SPECIMEN SOURCE, GLUCOSE POC Capillary 11/03/2024 7:16 AM CDT [facility] Blood, whole 11/03/2024 7:16 AM CDT 11/03/2024 9:02 AM CDT us James Lee MD POINT OF CARE TESTING Final Res ult Performing Organization Address [facility] Co de Phone Number [facility] CLIA # [id number] [address] [place], [place] [address] * (ABNORMAL) POC GLUCOSE (11/03/2024 5:28 AM CDT) GLUCOSE POC 260(H) 74 - 99 mg/dL 11/03/2024 5:28 AM CDT [facility] SPECIMEN SOURCE, GLUCOSE POC Capillary 11/03/2024 5:28 AM CDT [facility] [employer] [facility] Blood, whole 11/03/2024 5:28 AM CDT 11/03/2024 6:08 AM CDT James Lee MD POINT OF CARE TESTING Final Res ult Performing Organization Address [facility] Co de Phone Number [facility] CLIA # [id number] [address] [address] * (ABNORMAL) POC GLUCOSE (11/03/2024 1:18 AM CDT) GLUCOSE POC 220(H) 74 - 99 mg/dL 11/03/2024 1:18 AM CDT [facility] SPECIMEN SOURCE, GLUCOSE POC Capillary 11/03/2024 1:18 AM CDT [facility] Blood, whole 11/03/2024 1:18 AM CDT 11/03/2024 1:25 AM CDT James Lee MD POINT OF CARE TESTING Final Res ult Performing Organization Address [facility] de Phone Number [facility] CLIA # [id number] [address] [address] * (ABNORMAL) POC GLUCOSE (11/02/2024 8:53 PM CDT) GLUCOSE POC 331(H) 74 - 99 mg/dL 11/02/2024 8:53 PM CDT [facility] SPECIMEN SOURCE, GLUCOSE POC Capillary 11/02/2024 8:53 PM CDT [facility] Blood, whole 11/02/2024 8:53 PM CDT 11/02/2024 9:15 PM CDT James Lee MD POINT OF CARE TESTING Final Res ult [facility] CLIA # [id number] [address] [address] [place] [address] * (ABNORMAL) POC GLUCOSE (11/02/2024 4:02 PM CDT) GLUCOSE POC 446(HH) 74 - 99 mg/dL 11/02/2024 4:02 PM CDT [facility] SPECIMEN SOURCE, GLUCOSE POC Capillary 11/02/2024 4:02 PM CDT [facility] COMMENT, GLU POC Alerted Nurse/MARIELLA/DR 11/02/2024 4:02 PM CDT [facility] Blood, whole 11/02/2024 4:02 PM CDT 11/02/2024 4:11 PM CDT us James Lee MD POINT OF CARE TESTING Final Res ult Performing Organization Address [facility]/ZIP Co de Phone Number [facility] CLIA # [id number] [address] [address] * (ABNORMAL) POC GLUCOSE (11/02/2024 11:49 AM CDT) GLUCOSE POC 373(H) 74 - 99 mg/dL 11/02/2024 11:49 AM CDT [facility] SPECIMEN SOURCE, GLUCOSE POC Capillary 11/02/2024 11:49 AM CDT [facility] Blood, whole 11/02/2024 11:4 9 AM CDT 11/02/2024 12:39 PM CDT James Lee MD POINT OF CARE TESTING Final Res ult [facility] CLIA # [id number] [address] [address] * ECHOCARDIOGRAM W/ CONTRAST AGENT (11/02/2024 9:31 AM CDT) EJECTION FRACTION 50 INTERFACE SYSTEM 11/02/2024 8:52 AM CDT Narrative INTERFACE SYSTEM - 11/02/2024 6:23 PM CDT [facility] Echocardiography Laboratory [facility] [place] [address] Transthoracic Echocardiography Patient: Le Diaz Study ID: ECHO COMPLETE - Gender: F : 1965 Age: 59 Room: [facility] Study Date: 11/02/2024 Pt Status: Inpatient Study Time: 08:52:49 AM CSN #: [id number] Ordering:Danyell Dewitt Paint Sprayer Sandblaster: [facility] Indications and History: Syncope. Risk factors: Hypertension. Diabetes mellitus. Summary and Conclusion: - Left ventricle: Not well visualized. The cavity size is normal. Wall thickness is increased in a pattern of mild LVH. Assessment of systolic function was difficult due to image quality. Global systolic function may be mildly reduced. The estimated ejection fraction is 45-50%. For Epic reporting: the left ventricular ejection fraction is 50% by visual assessment. Images are inadequate for LV wall motion assessment. Cannot assess LV diastolic function. - Right ventricle: Not well visualized. The cavity size is normal. Systolic function is normal. Systolic pressure is not obtained. - Aortic valve: Not well visualized. The leaflets are thickened. - Mitral valve: Not well visualized. - Pulmonic valve: Not well visualized. - Inferior vena cava: The IVC is poorly visualized. Impressions: Technically very difficult images, LV function may be low normal to mildly reduced, RV and valves are poorly visualized. Procedure information: Comparison is made to the study of 07/06/2024. Study status: Routine. Procedure: A transthoracic echocardiogram was performed. Image quality was adequate. The study was technically limited due to restricted patient mobility. Scanning was performed from the parasternal, apical, subcostal, and suprasternal notch acoustic windows. Intravenous contrast (Definity) was administered. There were no complications. There were no contrast reactions. Study components: M-mode, 2D, complete spectral Doppler, and color Doppler. Height: 162.6cm. Height: 64in. Weight: 99.7kg. Weight: 219.8lb. BMI: 37.7kg/m^2. BSA: 2.17m^2. Blood pressure: 125/61 Study date: 11/02/2024. Study time: 08:52 AM. Location: ICU/CCU Cardiac Anatomy: LEFT VENTRICLE: Not well visualized. The cavity size is normal. Wall thickness is increased in a pattern of mild LVH. Assessment of systolic function was difficult due to image quality. Global systolic function may be mildly reduced. The estimated ejection fraction is 45-50%. For Epic reporting: the left ventricular ejection fraction is 50% by visual assessment. Images are inadequate for LV wall motion assessment. Cannot assess LV diastolic function. RIGHT VENTRICLE: Not well visualized. The cavity size is normal. Systolic function is normal. Systolic pressure is not obtained. LEFT ATRIUM: The atrium is normal in size. RIGHT ATRIUM: The atrium is normal in size. ATRIAL SEPTUM: Not well visualized. AORTIC VALVE: Not well visualized. The leaflets are thickened. Mobility is not restricted. There is no stenosis. There is no significant regurgitation. MITRAL VALVE: Not well visualized. The leaflets are thickened. Mobility is not restricted. There is no evidence for stenosis. There is no significant regurgitation. TRICUSPID VALVE: Not well visualized. Mobility is unrestricted. There is no evidence for stenosis. There is no significant regurgitation. PULMONIC VALVE: Not well visualized. PERICARDIUM: Not well visualized. AORTA: Aorta: The aorta is poorly visualized. Measurements Left ventricle Value LVOT Value ESD, LAX 3.8 cm Diam, S 2.0 cm ESD/bsa, LAX 1.8 cm/m^2 Area 3.1 cm^2 FS, LAX 24 % Peak reynaldo, S 116 cm/sec FS, LAX chord 24 % Peak grad, S 5 mm Hg ESD major ax, A4C 8.0 cm ESD/bsa major ax, A4C 3.7 cm/m^2 Right ventricle Value JUANY minor ax, A4C 8.0 cm JUANY, LAX 2.7 cm JUANY/bsa minor ax, A4C 3.7 cm/m^2 JUANY 2.7 cm CORAL, A4C 31.9 cm^2 TAPSE, 2D 1.9 cm ARLENE, A4C 25.0 cm^2 TAPSE, MM 1.9 cm FAC, A4C 22 % S' lateral 17.0 cm/sec JUANY major ax, A2C 8.2 cm JUANY/bsa major ax, A2C 3.8 cm/m^2 Left atrium Value CORAL, A2C 23.4 cm^2 AP dim, ES 3.7 cm ARLENE, A2C 16.7 cm^2 AP dim index, ES 1.7 cm/m^2 FAC, A2C 29 % Area ES, A4C 11 cm^2 IVS, ED 1.2 cm SI dim, A2C 5.3 cm PW, ED 1.2 cm Vol, ES, 1-p A4C 20 ml IVS/PW, ED 0.99 Vol/bsa, ES, 1-p A4C 9 ml/m^2 EDV 121 ml Vol, ES, 1-p A2C 30 ml ESV 64 ml Vol/bsa, ES, 1-p A2C 14 ml/m^2 EF 48 % Vol, ES, 2-p 25 ml EDV/bsa 56 ml/m^2 Vol/bsa, ES, 2-p 11 ml/m^2 ESV/bsa 29 ml/m^2 EDV, 1-p A2C 57 ml Right atrium Value ESV, 1-p A2C 25 ml Area, ES, A4C 10 cm^2 EF, 1-p A2C 44 % SV, 1-p A2C 58 ml Aortic valve Value EDV/bsa, 1-p A2C 26 ml/m^2 Peak v, S 127 cm/sec ESV/bsa, 1-p A2C 12 ml/m^2 Peak grad, S 6 mm Hg SV/bsa, 1-p A2C 26.5 ml/m^2 LVOT/AV, Vpeak ratio 0.91 EDV, 1-p A4C 100 ml LIDA, Vmax 2.87 cm^2 ESV, 1-p A4C 66 ml LIDA/bsa, Vmax 1.32 cm^2/m^2 EF, 1-p A4C 35 % SV, 1-p A4C 72 ml Mitral valve Value EDV/bsa, 1-p A4C 46 ml/m^2 Mean v, D 43.6 cm/sec ESV/bsa, 1-p A4C 30 ml/m^2 Peak E 47.2 cm/sec SV/bsa, 1-p A4C 33 ml/m^2 Peak A 65.5 cm/sec EDV, 2-p 77 ml VTI leaflet coapt 18.5 cm ESV, 2-p 48 ml Decel time 134 ms EF, 2-p 37 % Mean grad, D 1 mm Hg SV, 2-p 28 ml Peak E/A ratio 0.7 EDV/bsa, 2-p 35 ml/m^2 E-VTI 18.5 cm ESV/bsa, 2-p 22 ml/m^2 A-VTI 18.5 cm SV/bsa, 2-p 16.9 ml/m^2 VTI E/A 1.0 EDV, MM Teich. 121 ml Lainey VTI 18.5 cm EF, MM Teich. 48 % Vena contracta width 2.7 cm EDV/bsa, MM Teich. 56 ml/m^2 EF, MM on 2D Teich. 48 % Tricuspid valve Value E', lat lainey, TDI 7.2 cm/sec TR vena contracta width 2.0 cm E/e', lat lainey, TDI 6 E', med lainey, TDI 7.9 cm/sec Ascending aorta Value E/e', med lainey, TDI 6 AAo AP diam, S 3.6 cm E', avg, TDI 7.6 cm/sec AAo AP diam/bsa, S 1.7 cm/m^2 E/e', avg, TDI 6 Legend: (L) and (H) dottie values outside specified reference range. [facility] are accredited with the Intersocietal Accreditation Commission - Echocardiography. Prepared and Electronically Authenticated Howie Sweeney MD Confirmed 11/02/2024 18:22 Procedure Note Howie Sweeney MD - 11/02/2024 [facility] Echocardiography Laboratory [address] [place] [address] Transthoracic Echocardiography Patient: Le Diaz Study ID: ECHOCOMPLETE - Gender: F : 1965 Age: 59 Room: [facility] Study Date: 11/02/2024 Pt Status: Inpatient Study Time: 08:52:49 AM CSN #: [id number] Ordering:Danyell Dewitt Paint Sprayer Sandblaster: [facility] Indications and History: Syncope. Risk factors: Hypertension.Diabetes mellitus. Summary and Conclusion: - Left ventricle: Not well visualized. The cavity size is normal. Wall thickness is increased in a pattern of mild LVH. Assessment ofsystolic function was difficult due to image quality. Global systolic functionmay be mildly reduced. The estimated ejection fraction is 45-50%. For Epic reporting: the left ventricular ejection fraction is 50% by visual assessment. Images are inadequate for LV wall motion assessment.Cannot assess LV diastolic function. - Right ventricle: Not well visualized. The cavity size is normal.Systolic function is normal. Systolic pressure is not obtained. - Aortic valve: Not well visualized. The leaflets are thickened. - Mitral valve: Not well visualized. - Pulmonic valve: Not well visualized. - Inferior vena cava: The IVC is poorly visualized. Impressions: Technically very difficult images, LV function may be lownormal to mildly reduced, RV and valves are poorly visualized. Procedure information: Comparison is made to the study of 07/06/2024.Study status: Routine. Procedure: A transthoracic echocardiogram wasperformed. Image quality was adequate. The study was technically limited due to restricted patient mobility. Scanning was performed from theparasternal, apical, subcostal, and suprasternal notch acoustic windows. Intravenous contrast (Definity) was administered. There were no complications. Therewere no contrast reactions. Study components: M-mode, 2D, complete spectral Doppler, and color Doppler. Height: 162.6cm. Height: 64in. Weight: 99.7kg. Weight: 219.8lb. BMI: 37.7kg/m^2. BSA: 2.17m^2.Blood pressure: 125/61 Study date: 11/02/2024. Study time: 08:52 AM. Location: ICU/CCU Cardiac Anatomy: LEFT VENTRICLE: Not well visualized. The cavity size is normal. Wall thickness is increased in a pattern of mild LVH. Assessment of systolic function was difficult due to image quality. Global systolic function maybe mildly reduced. The estimated ejection fraction is 45-50%. For Epicreporting: the left ventricular ejection fraction is 50% by visual assessment. Imagesare inadequate for LV wall motion assessment. Cannot assess LV diastolicfunction. RIGHT VENTRICLE: Not well visualized. The cavity size is normal.Systolic function is normal. Systolic pressure is not obtained. LEFT ATRIUM: The atrium is normal in size. RIGHT ATRIUM: The atrium is normal in size. ATRIAL SEPTUM: Not well visualized. AORTIC VALVE: Not well visualized. The leaflets are thickened. Mobilityis not restricted. There is no stenosis. There is no significant regurgitation. MITRAL VALVE: Not well visualized. The leaflets are thickened. Mobilityis not restricted. There is no evidence for stenosis. There is nosignificant regurgitation. TRICUSPID VALVE: Not well visualized. Mobility is unrestricted. There isno evidence for stenosis. There is no significant regurgitation. PULMONIC VALVE: Not well visualized. PERICARDIUM: Not well visualized. AORTA: Aorta: The aorta is poorly visualized. Measurements Left ventricle Value LVOT Value ESD, LAX 3.8 cm Diam, S 2.0 cm ESD/bsa, LAX 1.8 cm/m^2 Area 3.1cm^2 FS, LAX 24 % Peak reynaldo, S 116cm/sec FS, LAX chord 24 % Peak grad, S 5 mmHg ESD major ax, A4C 8.0 cm ESD/bsa major ax, A4C 3.7 cm/m^2 Right ventricle Value JUANY minor ax, A4C 8.0 cm JUANY, LAX 2.7 cm JUANY/bsa minor ax, A4C 3.7 cm/m^2 JUANY 2.7 cm CORAL, A4C 31.9 cm^2 TAPSE, 2D 1.9 cm ARLENE, A4C 25.0 cm^2 TAPSE, MM 1.9 cm FAC, A4C 22 % S' lateral 17.0cm/sec JUANY major ax, A2C 8.2 cm JUANY/bsa major ax, A2C 3.8 cm/m^2 Left atrium Value CORAL, A2C 23.4 cm^2 AP dim, ES 3.7 cm ARLENE, A2C 16.7 cm^2 AP dim index, ES 1.7cm/m^2 FAC, A2C 29 % Area ES, A4C 11cm^2 IVS, ED 1.2 cm SI dim, A2C 5.3 cm PW, ED 1.2 cm Vol, ES, 1-p A4C 20 ml IVS/PW, ED 0.99 Vol/bsa, ES, 1-p A4C 9ml/m^2 EDV 121 ml Vol, ES, 1-p A2C 30 ml ESV 64 ml Vol/bsa, ES, 1-p A2C 14ml/m^2 EF 48 % Vol, ES, 2-p 25 ml EDV/bsa 56 ml/m^2 Vol/bsa, ES, 2-p 11ml/m^2 ESV/bsa 29 ml/m^2 EDV, 1-p A2C 57 ml Right atrium Value ESV, 1-p A2C 25 ml Area, ES, A4C 10cm^2 EF, 1-p A2C 44 % SV, 1-p A2C 58 ml Aortic valve Value EDV/bsa, 1-p A2C 26 ml/m^2 Peak v, S 127cm/sec ESV/bsa, 1-p A2C 12 ml/m^2 Peak grad, S 6 mmHg SV/bsa, 1-p A2C 26.5 ml/m^2 LVOT/AV, Vpeak ratio 0.91 EDV, 1-p A4C 100 ml LIDA, Vmax 2.87cm^2 ESV, 1-p A4C 66 ml LIDA/bsa, Vmax 1.32cm^2/m^2 EF, 1-p A4C 35 % SV, 1-p A4C 72 ml Mitral valve Value EDV/bsa, 1-p A4C 46 ml/m^2 Mean v, D 43.6cm/sec ESV/bsa, 1-p A4C 30 ml/m^2 Peak E 47.2cm/sec SV/bsa, 1-p A4C 33 ml/m^2 Peak A 65.5cm/sec EDV, 2-p 77 ml VTI leaflet coapt 18.5 cm ESV, 2-p 48 ml Decel time 134 ms EF, 2-p 37 % Mean grad, D 1 mmHg SV, 2-p 28 ml Peak E/A ratio 0.7 EDV/bsa, 2-p 35 ml/m^2 E-VTI 18.5 cm ESV/bsa, 2-p 22 ml/m^2 A-VTI 18.5 cm SV/bsa, 2-p 16.9 ml/m^2 VTI E/A 1.0 EDV, MM Teich. 121 ml Lainey VTI 18.5 cm EF, MM Teich. 48 % Vena contracta width 2.7 cm EDV/bsa, MM Teich. 56 ml/m^2 EF, MM on 2D Teich. 48 % Tricuspid valve Value E', lat lainey, TDI 7.2 cm/sec TR vena contracta width 2.0 cm E/e', lat lainey, TDI 6 E', med lainey, TDI 7.9 cm/sec Ascending aorta Value E/e', med lainey, TDI 6 AAo AP diam, S 3.6 cm E', avg, TDI 7.6 cm/sec AAo AP diam/bsa, S 1.7cm/m^2 E/e', avg, TDI 6 Legend: (L) and (H) dottie values outside specified reference range. [facility] are accredited with theIntersocietal Accreditation Commission - Echocardiography. Prepared and Electronically Authenticated Howie Sweeney MD Confirmed 11/02/2024 18:22 us Danyell Dewitt MD US ORDERABLES Final Resul t INTERFACE SYSTEM Refer to clinic/hospital department * (ABNORMAL) POC GLUCOSE (11/02/2024 7:19 AM CDT) GLUCOSE POC 111(H) 74 - 99 mg/dL 11/02/2024 7:19 AM CDT [facility] SPECIMEN SOURCE, GLUCOSE POC Capillary 11/02/2024 7:19 AM CDT [facility] Blood, whole 11/02/2024 7:19 AM CDT 11/02/2024 7:32 AM CDT us James Lee MD POINT OF CARE TESTING Final Res ult Performing Organization Address [facility] Co de Phone Number [facility] CLIA # [id number] [address] [address] * (ABNORMAL) POC GLUCOSE (11/02/2024 6:13 AM CDT) GLUCOSE POC 156(H) 74 - 99 mg/dL 11/02/2024 6:13 AM CDT [facility] SPECIMEN SOURCE, GLUCOSE POC Capillary 11/02/2024 6:13 AM CDT [facility] Blood, whole 11/02/2024 6:13 AM CDT 11/02/2024 6:21 AM CDT us Li Anderson MD POINT OF CARE TESTING Fin al Result Performing Organization Address [facility] Co de Phone Number [facility] CLIA # [id number] [address] [address] * (ABNORMAL) POC GLUCOSE (11/02/2024 5:15 AM CDT) GLUCOSE POC 170(H) 74 - 99 mg/dL 11/02/2024 5:15 AM CDT [facility] SPECIMEN SOURCE, GLUCOSE POC Capillary 11/02/2024 5:15 AM CDT [facility] Blood, whole 11/02/2024 5:15 AM CDT 11/02/2024 6:21 AM CDT us Li Anderson MD POINT OF CARE TESTING Fin al Result [facility] CLIA # [id number] [address] [address] [place] [address] * (ABNORMAL) COMPREHENSIVE METABOLIC PANEL (11/02/2024 4:33 AM CDT) SODIUM 142 136 - 145 mmol/L 11/02/2024 5:36 AM CDT [facility] POTASSIUM 3.7 3.5 - 5.1 mmol/L 11/02/2024 5:36 AM T [facility] Comment:Slightly hemolyzed. Result may be falsely elevated. CHLORIDE 101 98 - 107 mmol/L 11/02/2024 5:36 AM T [facility] CO2 26 22 - 29 mmol/L 11/02/2024 5:36 AM T [facility] CALCIUM 9.5 8.6 - 10.0 mg/dL 11/02/2024 5:36 AM T [facility] BUN 29(H) 6 - 20 mg/dL 11/02/2024 5:36 AM T [facility] CREATININE 0.77 0.51 - 0.95 mg/dL 11/02/2024 5:36 AM T [facility] GLUCOSE 192(H) 74 - 99 mg/dL 11/02/2024 5:36 AM T [facility] TOTAL PROTEIN 6.8 6.4 - 8.3 g/dL 11/02/2024 5:36 AM CDT [facility] ALBUMIN 3.5 3.5 - 5.2 g/dL 11/02/2024 5:36 AM CDT [facility] BILIRUBIN TOTAL 0.2 0.0 - 1.0 mg/dL 11/02/2024 5:36 AM CDT [facility] ALKALINE PHOSPHATASE 126(H) 35 - 104 U/L 11/02/2024 5:36 AM CDT [facility] AST 16 10 - 35 U/L 11/02/2024 5:36 AM T [facility] Comment:Hemolysis present. R esult may be falsely elevated. ALT 22 <=35 U/L 11/02/2024 5:36 AM T [facility] GFR >60 >=60 mL/min/1.7 3 sq meter 11/02/2024 5:36 AM T [facility] Comment:eGFR calculated with 2020 CKD-EPI equation. Vegetarian diet, extremely high or low muscle mass, and may affect results. Cystatin C with Glomerular Filtration Rate is a suitable alternative for these patients. ANION GAP 15 9 - 20 mmol/L 11/02/2024 5:36 AM T [facility] Blood Venipuncture / Unknown 11/02/2024 4:33 AM CDT 11/02/2024 4:49 AM CDT Danyell Dewitt MD CHEMISTRY ORDERABLES Final Result [facility] CLIA # [id number] [address] [place] [address] * (ABNORMAL) CBC WITHOUT DIFFERENTIAL (11/02/2024 4:33 AM CDT) WBC 12.4(H) 4.8 - 10.8 K/uL 11/02/2024 5:01 AM CDT [facility] NRBCS 1(H) <1 % 11/02/2024 5:01 AM T [facility] RBC 4.04(L) 4.20 - 5.40 M/uL 11/02/2024 5:01 AM T [facility] HEMOGLOBIN 12.0 12.0 - 16.0 g/dL 11/02/2024 5:01 AM T [facility] HEMATOCRIT 37.7 36.0 - 46.0 % 11/02/2024 5:01 AM [facility] MCV 93.3 84.0 - 103.0 fL 11/02/2024 5:01 AM T [facility] MCH 29.7 27.0 - 34.0 pg 11/02/2024 5:01 AM [facility] MCHC 31.8 30.0 - 35.0 g/dL 11/02/2024 5:01 AM [facility] PLATELETS 216 140 - 440 K/uL 11/02/2024 5:01 AM [facility] MPV 10.6 8.9 - 12.8 fL 11/02/2024 5:01 AM [facility] RDW 18.0(H) 11.0 - 14.5 % 11/02/2024 5:01 AM [facility] RDW-STDEV 61.4(H) 37.0 - 54.0 fL 11/02/2024 5:01 AM [facility] Blood Venipuncture / Unknown 11/02/2024 4:33 AM CDT 11/02/2024 4:49 AM CDT us Danyell Dewitt MD HEMATOLOGY ORDERABLES Final Result [facility] CLIA # [id number] [address] [place] [address] [place] [address] * (ABNORMAL) PROTIME-INR (11/02/2024 4:33 AM CDT) PROTIME 33.7(H) 12.7 - 14.9 Seconds 11/02/2024 5:13 AM T [facility] INR 3.2(H) 0.8 - 1.2 11/02/2024 5:13 AM CDT [facility] Blood Venipuncture / Unknown 11/02/2024 4:33 AM CDT 11/02/2024 4:49 AM CDT Narrative [facility] - 11/02/2024 5:13 AM CDT Expected Values for INR: DVT/PE Goal INR 2.5; range 2.0 - 3.0 Valve Replacement Tissue Goal INR 2.5; range 2.0 - 3.0 Valve Replacement Mechanical Goal INR 3.0; range 2.5 - 3.5 POST-OH Goal INR 2.5; range 2.0 - 3.0 or Goal INR 3.0; range 2.5 - 3.5 Atrial Fibrillation Goal INR 2.5; range 2.0 - 3.0 Ischemic Stroke Goal INR 2.5; range 2.0 - 3.0 us Danyell Dewitt MD HEMATOLOGY ORDERABLES Final Result Performing Organization Address City/[facility]/ZIP Co de Phone Number [facility] CLIA # [id number] [address] [address] * (ABNORMAL) LACTIC ACID (11/02/2024 4:33 AM CDT) LACTIC ACID 2.2(H) <=2.0 mmol/L 11/02/2024 5:12 AM CDT [facility] Blood Venipuncture / Unknown 11/02/2024 4:33 AM CDT 11/02/2024 4:43 AM CDT us Tiffanie Dawn [employer]SEM[employer]ER CHEMISTRY ORDERABLES Fi nal Result Performing Organization Address City/[facility] Co de Phone Number [facility] CLIA # [id number] [address] [address] [place] [address] * (ABNORMAL) POC GLUCOSE (11/02/2024 4:06 AM CDT) GLUCOSE POC 212(H) 74 - 99 mg/dL 11/02/2024 4:06 AM CDT [facility] SPECIMEN SOURCE, GLUCOSE POC Capillary 11/02/2024 4:06 AM CDT [facility] Blood, whole 11/02/2024 4:06 AM CDT 11/02/2024 6:21 AM CDT Li Anderson MD POINT OF CARE TESTING Fin al Result Performing Organization Address [facility]/ZIP Co de Phone Number [facility] CLIA # [id number] [address] [address] * (ABNORMAL) POC GLUCOSE (11/02/2024 2:54 AM CDT) GLUCOSE POC 290(H) 74 - 99 mg/dL 11/02/2024 2:54 AM CDT [facility] SPECIMEN SOURCE, GLUCOSE POC Capillary 11/02/2024 2:54 AM CDT [facility] Blood, whole 11/02/2024 2:54 AM CDT 11/02/2024 6:21 AM CDT Li Anderson MD POINT OF CARE TESTING Fin al Result Performing Organization Address City/[facility]/ZIP Co de Phone Number [facility] CLIA # [id number] [address] [address] * (ABNORMAL) POC GLUCOSE (11/02/2024 1:55 AM CDT) GLUCOSE POC 310(H) 74 - 99 mg/dL 11/02/2024 1:55 AM CDT [facility] SPECIMEN SOURCE, GLUCOSE POC Capillary 11/02/2024 1:55 AM CDT [facility] Blood, whole 11/02/2024 1:55 AM CDT 11/02/2024 6:21 AM CDT Li Anderson MD POINT OF CARE TESTING Fin al Result Performing Organization Address [facility] de Phone Number [facility] CLIA # [id number] [address] [place] [address] * (ABNORMAL) POC GLUCOSE (11/02/2024 12:53 AM CDT) GLUCOSE POC 363(H) 74 - 99 mg/dL 11/02/2024 12:53 AM CDT [facility] SPECIMEN SOURCE, GLUCOSE POC Capillary 11/02/2024 12:53 AM CDT [facility] Blood, whole 11/02/2024 12:5 3 AM CDT 11/02/2024 6:21 AM CDT us Li Anderson MD POINT OF CARE TESTING Fin al Result Performing Organization Address [facility] Co de Phone Number [facility] CLIA # [id number] [facility] [address] * (ABNORMAL) POC GLUCOSE (11/01/2024 9:58 PM CDT) GLUCOSE POC 402(HH) 74 - 99 mg/dL 11/01/2024 9:58 PM CDT [facility] SPECIMEN SOURCE, GLUCOSE POC Capillary 11/01/2024 9:58 PM CDT [facility] COMMENT, GLU POC Alerted Nurse/MAREILLA/DR 11/01/2024 9:58 PM CDT [facility] Blood, whole 11/01/2024 9:58 PM CDT 11/01/2024 10:44 PM CDT us Li Anderson MD POINT OF CARE TESTING Fin al Result Performing Organization Address [facility]/ZIP Co de Phone Number [facility] CLIA # [id number] [address] [address] * (ABNORMAL) LACTIC ACID (11/01/2024 9:10 PM CDT) LACTIC ACID 4.6(HH) <=2.0 mmol/L 11/01/2024 9:57 PM CDT [facility] Blood Venipuncture / Unknown 11/01/2024 9:10 PM CDT 11/01/2024 9:19 PM CDT us Li Anderson MD CHEMISTRY ORDERABLES Jana l Result Performing Organization Address [facility] Co de Phone Number [facility] CLIA # [id number] [address] [address] * (ABNORMAL) BASIC METABOLIC PANEL (11/01/2024 9:10 PM CDT) SODIUM 140 136 - 145 mmol/L 11/01/2024 10:32 PM CDT [facility] POTASSIUM 4.3 3.5 - 5.1 mmol/L 11/01/2024 10:32 PM CDT [facility] CHLORIDE 98 98 - 107 mmol/L 11/01/2024 10:32 PM CDT [facility] CO2 22 22 - 29 mmol/L 11/01/2024 10:32 PM CDT [facility] CALCIUM 10.0 8.6 - 10.0 mg/dL 11/01/2024 10:32 PM CDT [facility] BUN 32(H) 6 - 20 mg/dL 11/01/2024 10:32 PM CDT [facility] CREATININE 1.00(H) 0.51 - 0.95 mg/dL 11/01/2024 10:32 PM CDT [facility] GLUCOSE 521(HH) 74 - 99 mg/dL 11/01/2024 10:32 PM CDT [facility] GFR >60 >=60 mL/min/1. 73 sq meter 11/01/2024 10:32 PM CDT [facility] Comment:eGFR calculated with 2020 CKD-EPI equation. Vegetarian diet, extremely high or low muscle mass, and may affect results. Cystatin C with Glomerular Filtration Rate is a suitable alternative for these patients. ANION GAP 20 9 - 20 mmol/L 11/01/2024 10:32 PM CDT [facility] Blood Venipuncture / Unknown 11/01/2024 9:10 PM CDT 11/01/2024 9:25 PM CDT Li Anderson MD CHEMISTRY ORDERABLES Jana l Result Performing Organization Address City/[facility]/ZIP Co de Phone Number [facility] CLIA # [id number] [address] [address] * (ABNORMAL) OSMOLALITY (11/01/2024 9:10 PM CDT) OSMOLALITY 324(H) 275 - 295 mOsm/kg 11/01/2024 10:03 PM CDT [facility] Blood Venipuncture / Unknown 11/01/2024 9:10 PM CDT 11/01/2024 9:30 PM CDT us Li Anderson MD CHEMISTRY ORDERABLES Jana l Result [facility] CLIA # [id number] [address] [place] [address] * (ABNORMAL) POC GLUCOSE (11/01/2024 4:35 PM CDT) GLUCOSE POC 462(HH) 74 - 99 mg/dL 11/01/2024 4:35 PM CDT [facility] SPECIMEN SOURCE, GLUCOSE POC Capillary 11/01/2024 4:35 PM CDT [facility] COMMENT, GLU POC Alerted Nurse/MARIELLA/DR 11/01/2024 4:35 PM CDT [facility] Blood, whole 11/01/2024 4:35 PM CDT 11/01/2024 4:57 PM CDT Li Anderson MD POINT OF CARE TESTING Fin al Result Performing Organization Address [facility] Co de Phone Number [facility] CLIA # [id number] [address] [address] * (ABNORMAL) POC GLUCOSE (11/01/2024 11:29 AM CDT) GLUCOSE POC 473(HH) 74 - 99 mg/dL 11/01/2024 11:29 AM CDT [facility] SPECIMEN SOURCE, GLUCOSE POC Capillary 11/01/2024 11:29 AM CDT [facility] COMMENT, GLU POC Alerted Nurse/MARIELLA/DR 11/01/2024 11:29 AM CDT [facility] Blood, whole 11/01/2024 11:2 9 AM CDT 11/01/2024 11:44 AM CDT Li Anderson MD POINT OF CARE TESTING Fin al Result Performing Organization Address [facility]/ZIP Co de Phone Number [facility] CLIA # [id number] [address] [address] * US CAROTID DOPPLER (11/01/2024 8:04 AM CDT) Anatomical Region Laterality Modality Neck Ultrasound 11/01/2024 7:32 AM CDT Narrative 11/01/2024 9:00 AM CDT [facility] Noninvasive Vascular Laboratory [address] [place], [place] [address] [address] Noninvasive Vascular Lab Cerebrovascular Exam Carotid Duplex Patient: Le Diaz Study ID: US CAROTID DOPPL Gender: F : 1965 Age: 59 Room: [facility] Height: 162.6cm Weight: 97kg BSA: 2.14m^2 Pt status: Inpatient Study Date: 11/01/2024 Study Time: 07:32:50 AM BSA: 2.14m^2 Ordering: Danyell Dewitt Interpreting:Lm Zimmerman Paint Sprayer Sandblaster: Jerson Nuñez Indications: Syncope. Summary Mild plaque is visualized in the left carotid bulb, but there is no evidence of hemodynamically significant narrowing in either carotid system. Antegrade flow is noted in both vertebral arteries. Impression: No prior study available for comparison. Study data: Carotid duplex study. Complete study and Doppler flow study including spectral analysis, color and mariscal scale imaging. Height: 162.6cm. Height: 64in. Weight: 97kg. Weight: 213.8lb. BMI: 36.7kg/m^2. BSA: 2.14m^2. Location: Vascular laboratory. Patient status: Inpatient. Study status: Routine. Procedure: A vascular evaluation was performed. Image quality was good. Arterial flow: - Right CCA proximal: Right CCA proximal 1.34m/sec 0.19m/sec - Right CCA distal: Right CCA distal 0.97m/sec 0.11m/sec - Right ICA proximal: Right ICA proximal 0.91m/sec 0.11m/sec 0.68 0.58 - Right ICA distal: Right ICA distal 0.74m/sec 0.2m/sec 0.55 1.04 - Right ECA: Right ECA 0.77m/sec - Right vertebral: Right vertebral 0.39m/sec - Left CCA proximal: Left CCA proximal 1.31m/sec 0.16m/sec - Left CCA distal: Left CCA distal 0.84m/sec 0.14m/sec - Left ICA proximal: Left ICA proximal 0.7m/sec 0.1m/sec 0.53 0.62 - Left ICA distal: Left ICA distal 1.08m/sec 0.27m/sec 0.83 1.68 - Left ECA: Left ECA 1.25m/sec - Left vertebral: Left vertebral 0.43m/sec Velocity ratios: + +-----+-----+ ! !R PSV!L PSV! + +-----+-----+ !Proximal ICA/prox CCA!0.68 !0.53 ! + +-----+-----+ [facility] is accredited with the Intersocietal Commission for the Accreditation of Vascular Laboratories (ICAVL) Prepared and Electronically Authenticated Lm Zimmerman Confirmed 11/01/2024 09:00 Procedure Note Lm Zimmerman MD - 11/01/2024 [facility] Noninvasive Vascular Laboratory [address] [place] [address] Noninvasive Vascular Lab Cerebrovascular Exam Carotid Duplex Patient: Le Diaz Study ID: US CAROTID DOPPL Gender: F : 1965 Age: 59 Room: [facility] Height: 162.6cm Weight: 97kg BSA: 2.14m^2 Pt status: Inpatient Study Date: 11/01/2024 Study Time: 07:32:50 AM BSA: 2.14m^2 Ordering: Danyell Dewitt Interpreting:Lm Zimmerman Paint Sprayer Sandblaster: Jerson Nuñez Indications: Syncope. Summary Mild plaque is visualized in the left carotid bulb, but there is noevidence of hemodynamically significant narrowing in either carotid system.Antegrade flow is noted in both vertebral arteries. Impression: No prior study available for comparison. Study data: Carotid duplex study. Complete study and Doppler flowstudy including spectral analysis, color and mariscal scale imaging. Height:162.6cm. Height: 64in. Weight: 97kg. Weight: 213.8lb. BMI: 36.7kg/m^2.BSA: 2.14m^2. Location: Vascular laboratory. Patient status: Inpatient. Study status: Routine. Procedure: A vascular evaluation wasperformed. Image quality was good. Arterial flow: - Right CCA proximal: Right CCA proximal 1.34m/sec 0.19m/sec - Right CCA distal: Right CCA distal 0.97m/sec 0.11m/sec - Right ICA proximal: Right ICA proximal 0.91m/sec 0.11m/sec 0.68 0.58 - Right ICA distal: Right ICA distal 0.74m/sec 0.2m/sec 0.55 1.04 - Right ECA: Right ECA 0.77m/sec - Right vertebral: Right vertebral 0.39m/sec - Left CCA proximal: Left CCA proximal 1.31m/sec 0.16m/sec - Left CCA distal: Left CCA distal 0.84m/sec 0.14m/sec - Left ICA proximal: Left ICA proximal 0.7m/sec 0.1m/sec 0.53 0.62 - Left ICA distal: Left ICA distal 1.08m/sec 0.27m/sec 0.83 1.68 - Left ECA: Left ECA 1.25m/sec - Left vertebral: Left vertebral 0.43m/sec Velocity ratios: + +-----+-----+ ! !R PSV!L PSV! + +-----+-----+ !Proximal ICA/prox CCA!0.68 !0.53 ! + +-----+-----+ [facility] is accredited with theIntersocietal Commission for the Accreditation of Vascular Laboratories (ICAVL) Prepared and Electronically Authenticated Lm Zimmerman Confirmed 11/01/2024 09:00 us Danyell Dewitt MD US ORDERABLES Final Resul t * (ABNORMAL) POC GLUCOSE (11/01/2024 7:31 AM CDT) Pathologist [facility] GLUCOSE POC 476(HH) 74 - 99 mg/dL 11/01/2024 7:31 AM CDT [facility] SPECIMEN SOURCE, GLUCOSE POC Capillary 11/01/2024 7:31 AM CDT [facility] COMMENT, GLU POC Alerted Nurse/MARIELLA/DR 11/01/2024 7:31 AM CDT [facility] Blood, whole 11/01/2024 7:31 AM CDT 11/01/2024 8:08 AM CDT Li Anderson MD POINT OF CARE TESTING Fin al Result Performing Organization Address [facility]/ZIP Co de Phone Number [facility] CLIA # [id number] [address] [address] * (ABNORMAL) POC GLUCOSE (11/01/2024 4:29 AM CDT) [facility] GLUCOSE POC 493(HH) 74 - 99 mg/dL 11/01/2024 4:29 AM CDT [facility] SPECIMEN SOURCE, GLUCOSE POC Capillary 11/01/2024 4:29 AM CDT [facility] COMMENT, GLU POC Alerted Nurse/MARIELLA/DR 11/01/2024 4:29 AM CDT [facility] Blood, whole 11/01/2024 4:29 AM CDT 11/01/2024 5:19 AM CDT Danyell Dewitt MD POINT OF CARE TESTING Final Result Performing Organization Address [facility]/ZIP Co de Phone Number [facility] CLIA # [id number] [address] [address] * (ABNORMAL) COMPREHENSIVE METABOLIC PANEL (11/01/2024 4:02 AM CDT) [facility] SODIUM 136 136 - 145 mmol/L 11/01/2024 5:44 AM [facility] POTASSIUM 4.3 3.5 - 5.1 mmol/L 11/01/2024 5:44 AM [facility] CHLORIDE 94(L) 98 - 107 mmol/L 11/01/2024 5:44 AM [facility] CO2 25 22 - 29 mmol/L 11/01/2024 5:44 AM [facility] CALCIUM 9.7 8.6 - 10.0 mg/dL 11/01/2024 5:44 AM [facility] BUN 31(H) 6 - 20 mg/dL 11/01/2024 5:44 AM [facility] CREATININE 0.66 0.51 - 0.95 mg/dL 11/01/2024 5:44 AM [facility] GLUCOSE 564(HH) 74 - 99 mg/dL 11/01/2024 5:44 AM [facility] TOTAL PROTEIN 7.1 6.4 - 8.3 g/dL 11/01/2024 5:44 AM [facility] ALBUMIN 3.9 3.5 - 5.2 g/dL 11/01/2024 5:44 AM [facility] BILIRUBIN TOTAL 0.2 0.0 - 1.0 mg/dL 11/01/2024 5:44 AM [facility] ALKALINE PHOSPHATASE 146(H) 35 - 104 U/L 11/01/2024 5:44 AM [facility] AST 19 10 - 35 U/L 11/01/2024 5:44 AM [facility] ALT 24 <=35 U/L 11/01/2024 5:44 AM [facility] GFR >60 >=60 mL/min/1. 73 sq meter 11/01/2024 5:44 AM [facility] Comment:eGFR calculated with 2020 CKD-EPI equation. Vegetarian diet, extremely high or low muscle mass, and may affect results. Cystatin C with Glomerular Filtration Rate is a suitable alternative for these patients. ANION GAP 17 9 - 20 mmol/L 11/01/2024 5:44 AM T [facility] Blood Venipuncture / Unknown 11/01/2024 4:02 AM CDT 11/01/2024 4:49 AM CDT us Danyell Dewitt MD CHEMISTRY ORDERABLES Final Result [facility] CLIA # [id number] [address] [address] [place] [address] * (ABNORMAL) CBC WITHOUT DIFFERENTIAL (11/01/2024 4:01 AM CDT) WBC 9.8 4.8 - 10.8 K/uL 11/01/2024 5:16 AM [facility] NRBCS 1(H) <1 % 11/01/2024 5:16 AM T [facility] RBC 4.08(L) 4.20 - 5.40 M/uL 11/01/2024 5:16 AM T [facility] HEMOGLOBIN 12.3 12.0 - 16.0 g/dL 11/01/2024 5:16 AM [facility] HEMATOCRIT 38.4 36.0 - 46.0 % 11/01/2024 5:16 AM T [facility] MCV 94.1 84.0 - 103.0 fL 11/01/2024 5:16 AM T [facility] MCH 30.1 27.0 - 34.0 pg 11/01/2024 5:16 AM T [facility] MCHC 32.0 30.0 - 35.0 g/dL 11/01/2024 5:16 AM T [facility] PLATELETS 214 140 - 440 K/uL 11/01/2024 5:16 AM [facility] [employer] MPV 11.3 8.9 - 12.8 fL 11/01/2024 5:16 AM CDT [facility] RDW 17.8(H) 11.0 - 14.5 % 11/01/2024 5:16 AM CDT [facility] RDW-STDEV 62.2(H) 37.0 - 54.0 fL 11/01/2024 5:16 AM CDT [facility] Blood Venipuncture / Unknown 11/01/2024 4:01 AM CDT 11/01/2024 4:49 AM CDT Danyell Dewitt MD HEMATOLOGY ORDERABLES Final Result [facility] CLIA # [id number] [address] [address] * (ABNORMAL) PROTIME-INR (11/01/2024 4:01 AM CDT) PROTIME 18.4(H) 12.7 - 14.9 Seconds 11/01/2024 5:04 AM CDT [facility] INR 1.5(H) 0.8 - 1.2 11/01/2024 5:04 AM CDT [facility] Blood Venipuncture / Unknown 11/01/2024 4:01 AM CDT 11/01/2024 4:49 AM CDT Narrative [facility] - 11/01/2024 5:04 AM CDT Expected Values for INR: DVT/PE Goal INR 2.5; range 2.0 - 3.0 Valve Replacement Tissue Goal INR 2.5; range 2.0 - 3.0 Valve Replacement Mechanical Goal INR 3.0; range 2.5 - 3.5 POST-OH Goal INR 2.5; range 2.0 - 3.0 or Goal INR 3.0; range 2.5 - 3.5 Atrial Fibrillation Goal INR 2.5; range 2.0 - 3.0 Ischemic Stroke Goal INR 2.5; range 2.0 - 3.0 us Danyell L Esdras MD HEMATOLOGY ORDERABLES Final Result Performing Organization Address [facility] Co de Phone Number [facility] CLIA # [id number] [address] [place] [address] * (ABNORMAL) POC GLUCOSE (11/01/2024 2:49 AM CDT) GLUCOSE POC 542(HH) 74 - 99 mg/dL 11/01/2024 2:49 AM CDT [facility] SPECIMEN SOURCE, GLUCOSE POC Capillary 11/01/2024 2:49 AM CDT [facility] COMMENT, GLU POC Alerted Nurse/MARIELLA/DR 11/01/2024 2:49 AM CDT [facility] Blood, whole 11/01/2024 2:49 AM CDT 11/01/2024 3:03 AM CDT us Danyell Dewitt MD POINT OF CARE TESTING Final Result Performing Organization Address [facility] Co de Phone Number [facility] CLIA # [id number] [address] [place] [address] * (ABNORMAL) POC GLUCOSE (10/31/2024 8:53 PM CDT) GLUCOSE POC 502(HH) 74 - 99 mg/dL 10/31/2024 8:53 PM CDT [facility] SPECIMEN SOURCE, GLUCOSE POC Capillary 10/31/2024 8:53 PM CDT [facility] COMMENT, GLU POC Alerted Nurse/MARIELLA/DR 10/31/2024 8:53 PM CDT [facility] Blood, whole 10/31/2024 8:53 PM CDT 10/31/2024 11:13 PM CDT us Danyell Dewitt MD POINT OF CARE TESTING Final Result Performing Organization Address City/[facility]/ZIP Co de Phone Number [facility] CLIA # [id number] [address] [place] [address] * (ABNORMAL) TROPONIN 6 HR, 5TH GEN (10/31/2024 1:53 PM CDT) TROPONIN T, 6 HR 5TH GEN 24(H) <11 ng/L 10/31/2024 2:49 PM CDT [facility] DELTA 6HR TROPONIN T 0 See Interp. 10/31/2024 2:49 PM CDT [facility] Blood Venipuncture / Unknown 10/31/2024 1:53 PM CDT 10/31/2024 2:03 PM CDT Narrative [facility] - 10/31/2024 2:49 PM CDT Troponin elevated. Delta indeterminate. Delay in collection of timed specimen beyond recommended collection interval. Results must be interpreted in clinical context. us Aggie Rivas DO CHEMISTRY ORDERABLES Final Resul t Performing Organization Address [facility] Co de Phone Number [facility] CLIA # [id number] [id number] [place] [address] * BLOOD CULTURE (10/31/2024 1:24 PM CDT) Pathologist [facility] BLOOD CULTURE No growth 11/05/2024 2:29 PM CDT [facility] Blood (Peripheral) Venipuncture / Unknown 10/31/2024 1:24 PM CDT 10/31/2024 1:29 PM CDT us Aggie Rivas DO MICROBIOLOGY - GENERAL ORDERABLE S Final Result Performing Organization Address [facility] Co de Phone Number [facility] CLIA # [id number] [address] [place] [address] * (ABNORMAL) POC GLUCOSE (10/31/2024 12:45 PM CDT) GLUCOSE POC 313(H) 74 - 99 mg/dL 10/31/2024 12:45 PM CDT [facility] SPECIMEN SOURCE, GLUCOSE POC Capillary 10/31/2024 12:45 PM CDT [facility] Blood, whole 10/31/2024 12:4 5 PM CDT 10/31/2024 1:04 PM CDT us Aggie Rivas DO POINT OF CARE TESTING Final Resu lt Performing Organization Address [facility]/ZIP Co de Phone Number [facility] CLIA # [id number] [address] [address] * (ABNORMAL) LACTIC ACID (10/31/2024 11:49 AM CDT) Pathologist [facility] LACTIC ACID 2.9(H) <=2.0 mmol/L 10/31/2024 12:25 PM CDT [facility] Blood BLOOD SPECIMEN / Unknown Venipuncture / Unknown 10/31/2024 11:49 AM CDT 10/31/2024 11:52 AM CDT us Aggie Rivas DO CHEMISTRY ORDERABLES Final Resul t Performing Organization Address City/[facility]/ZIP Co de Phone Number [facility] CLIA # [id number] [address] [address] * CTA CHEST W AND/OR WO CONTRAST (10/31/2024 9:04 AM CDT) Anatomical Region Laterality Modality Chest Computed Tomogra phy 10/31/2024 8:54 AM CDT Impressions 10/31/2024 9:44 AM CDT IMPRESSION: Please see below. Exam: CTA CHEST W AND/OR WO CONTRAST Date/Time of Exam: 10/31/2024 9:04 AM REASON FOR EXAM: Pulmonary embolism (PE) suspected, high prob. DIAGNOSIS: See Reason for Exam. Technique: CTA of the chest was performed prior to and/or following the administration of intravenous contrast. Post-processing was performed, including sagittal and coronal reformations and 3-D reconstruction. Contrast (if used): 75 mL Isovue 300 Findings: Comparison is made to the CT of the chest performed 08/18/2024. Evaluation of the segmental and subsegmental branches of the lung periphery is significantly limited by motion artifact. No central pulmonary artery filling defects are identified. No pulmonary artery dilation or right ventricular strain is identified. There is coronary disease. Mild atherosclerotic changes are seen in the thoracic aorta without evidence of flow-limiting stenosis. There is an ovoid area of masslike consolidation in the left lung base measuring 3.6 x 1.5 x 1.4 cm, similar in size and appearance compared to the 08/18/2024 examination. There is minimal atelectasis in the lung bases. The airways are patent. No pneumothorax or pleural effusion. There is no pathologic mediastinal or hilar adenopathy. 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 Hepatomegaly and hepatic steatosis are partially imaged. The imaged abdominal structures are otherwise unremarkable. ACDF changes in the cervicothoracic spine and lordosis are again noted. IMPRESSION: 1. Evaluation of the segmental and subsegmental pulmonary artery branches, significantly limited due to severe motion artifact. No central pulmonary artery filling defect is identified to suggest large volume pulmonary embolus. There is no evidence of right ventricular strain. 2. Masslike consolidation in the left lung base, similar to the prior CT scan performed 08/18/2024. Please see prior report for details. 3. No acute pulmonary process allowing for limitations of motion artifact. 4. Hepatomegaly and hepatic steatosis is again identified. 5. Additional incidental findings as above. Narrative Procedure Note Meir Acosta MD - 10/31/2024 IMPRESSION: Please see below. Exam: CTA CHEST W AND/OR WO CONTRAST Date/Time of Exam: 10/31/2024 9:04 AM REASON FOR EXAM: Pulmonary embolism (PE) suspected, high prob. DIAGNOSIS: See Reason for Exam. Technique: CTA of the chest was performed prior to and/or following the administration of intravenous contrast. Post-processing was performed, including sagittal and coronal reformations and 3-D reconstruction. Contrast (if used): 75 mL Isovue 300 Findings: Comparison is made to the CT of the chest performed 08/18/2024. Evaluation of the segmental and subsegmental branches of the lung periphery is significantly limited by motion artifact. No central pulmonary artery filling defects are identified. No pulmonary artery dilation or right ventricular strain is identified. There is coronary disease. Mild atherosclerotic changes are seen in the thoracic aorta without evidence of flow-limiting stenosis. There is an ovoid area of masslike consolidation in the left lung base measuring 3.6 x 1.5 x 1.4 cm, similar in size and appearance compared to the 08/18/2024 examination. There is minimal atelectasis in the lung bases. The airways are patent. No pneumothorax or pleural effusion. There is no pathologic mediastinal or hilar adenopathy. 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 Hepatomegaly and hepatic steatosis are partially imaged. The imaged abdominal structures are otherwise unremarkable. ACDF changes in the cervicothoracic spine and lordosis are again noted. IMPRESSION: 1. Evaluation of the segmental and subsegmental pulmonary artery branches, significantly limited due to severe motion artifact. No central pulmonary artery filling defect is identified to suggest large volume pulmonary embolus. There is no evidence of right ventricular strain. 2. Masslike consolidation in the left lung base, similar to the prior CT scan performed 08/18/2024. Please see prior report for details. 3. No acute pulmonary process allowing for limitations of motion artifact. 4. Hepatomegaly and hepatic steatosis is again identified. 5. Additional incidental findings as above. Aggie Rivas DO CT ORDERABLES Final Result * CT HEAD WO CONTRAST (10/31/2024 9:04 AM CDT) Anatomical Region Laterality Modality Head Computed Tomogra phy 10/31/2024 8:50 AM CDT Impressions 10/31/2024 9:34 AM CDT IMPRESSION: Please see below. CT Head Without Contrast Date: 10/31/2024 9:04 AM Reason For Exam: Head trauma, moderate-severe. Diagnosis: See Reason for Exam. Technique: Conventional axial images were obtained through the brain without contrast. Comparison: June 30, 2024 FINDINGS: Examination is limited by patient motion and suboptimal positioning in the scanner. Midline structures are central. Ventricles are nondilated. Mild global volume loss. Parenchyma attenuation is grossly normal. No evidence of brain injury or hemorrhage. Skull base and calvaria intact. Mastoid air cells, middle ear cavities and visualized paranasal sinuses are grossly clear. IMPRESSION: No acute intracranial findings. Narrative Procedure Note RadhaCarlos, DO - 10/31/2024 IMPRESSION: Please see below. CT Head Without Contrast Date: 10/31/2024 9:04 AM Reason For Exam: Head trauma, moderate-severe. Diagnosis: See Reason for Exam. Technique: Conventional axial images were obtained through the brain without contrast. Comparison: June 30, 2024 FINDINGS: Examination is limited by patient motion and suboptimal positioning in the scanner. Midline structures are central. Ventricles are nondilated. Mild global volume loss. Parenchyma attenuation is grossly normal. No evidence of brain injury or hemorrhage. Skull base and calvaria intact. Mastoid air cells, middle ear cavities and visualized paranasal sinuses are grossly clear. IMPRESSION: No acute intracranial findings. Aggie Rivas DO CT ORDERABLES Final Result * MAGNESIUM LEVEL (10/31/2024 8:07 AM CDT) [facility] MAGNESIUM 2.0 1.6 - 2.6 mg/dL 10/31/2024 10:58 AM CDT [facility] Blood Venipuncture / Unknown 10/31/2024 8:07 AM CDT 10/31/2024 8:14 AM CDT Danyell Dewitt MD CHEMISTRY ORDERABLES Final Result [id number] [address] [place] [address] [place] [address] * (ABNORMAL) PROTIME-INR (10/31/2024 8:07 AM CDT) Pathologist [facility] PROTIME 19.6(H) 12.7 - 14.9 Seconds 10/31/2024 8:42 AM CDT [facility] INR 1.6(H) 0.8 - 1.2 10/31/2024 8:42 AM CDT [facility] Blood Venipuncture / Unknown 10/31/2024 8:07 AM CDT 10/31/2024 8:14 AM CDT [facility] - 10/31/2024 8:42 AM CDT Expected Values for INR: DVT/PE Goal INR 2.5; range 2.0 - 3.0 Valve Replacement Tissue Goal INR 2.5; range 2.0 - 3.0 Valve Replacement Mechanical Goal INR 3.0; range 2.5 - 3.5 POST-OH Goal INR 2.5; range 2.0 - 3.0 or Goal INR 3.0; range 2.5 - 3.5 Atrial Fibrillation Goal INR 2.5; range 2.0 - 3.0 Ischemic Stroke Goal INR 2.5; range 2.0 - 3.0 us Aggie Rivas DO HEMATOLOGY ORDERABLES Final Resu lt [facility] CLIA # [id number] [address] [place] [address] [place] [address] * (ABNORMAL) TROPONIN 2 HR, 5TH GEN (10/31/2024 8:07 AM CDT) TROPONIN T, 2 HR 5TH GEN 26(H) <=10 ng/L 10/31/2024 8:47 AM CDT [facility] DELTA 2HR TROPONIN T 2 See Interp. 10/31/2024 8:47 AM CDT [facility] Blood Venipuncture / Unknown 10/31/2024 8:07 AM CDT 10/31/2024 8:14 AM CDT [facility] - 10/31/2024 8:47 AM CDT Troponin elevated. Delta not changing. us Aggie Rivas DO CHEMISTRY ORDERABLES Final Resul t Performing Organization Address City/[facility]/ZIP Co de Phone Number [facility] # [id number] [address] [address] * EKG 12-LEAD (10/31/2024 8:03 AM CDT) 10/31/2024 8:03 AM CDT Narrative INTERFACE SYSTEM - 10/31/2024 12:10 PM CDT [address] [address] Test Date: 2024-10-31 Pat Name: LE DIAZ Department: 11 Room: [facility] Gender: Female Knot Cutter: [id number] : 1965 Requested By: Order Number: [id number] Reading MD: Echo Tapia Measurements Intervals [employer] Rate: 90 P: 29 WI: 148 QRS: 46 QRSD: 82 T: 2 QT: 366 QTc: 447 Interpretive Statements Normal sinus rhythm Possible Inferior infarct, age undetermined Abnormal ECG Electronically Signed On 10-31-2024 12:10:24 CDT by Echo Tapia Procedure Note Provider, Historical - 10/31/[address] [address] Test Date: 2024-10-31 Pat Name: LE DIAZ Department: 11 Room: [facility] Gender: Female Knot Cutter: [id number] : 1965 Requested By: Order Number: [id number] Reading : Echo Tapia Measurements Intervals [employer] Rate: 90 P: 29 WI: 148 QRS: 46 QRSD: 82 T: 2 QT: 366 QTc: 447 Interpretive Statements Normal sinus rhythm Possible Inferior infarct, age undetermined Abnormal ECG Electronically Signed On 10-31-2024 12:10:24 CDT by Echo Tapia us Aggie Rivas DO ECG ORDERABLES Final Result INTERFACE SYSTEM Refer to clinic/hospital department * (ABNORMAL) BLOOD GAS ARTERIAL (10/31/2024 6:38 AM [facility]) PH BLOOD POC 7.43 7.35 - 7.45 10/31/2024 6:38 AM [facility] PCO2 POC 44 35 - 45 mm Hg 10/31/2024 6:38 AM [facility] PO2 POC 94 80 - 105 mm Hg 10/31/2024 6:38 AM [facility] HCO3 (CALC) POC 29(H) 22 - 26 mmol/L 10/31/2024 6:38 AM [facility] HEMOGLOBIN POC 12.2 12.0 - 18.0 g/dL 10/31/2024 6:38 AM [facility] BASE EXCESS POC 5(H) -2 - 3 mmol/L 10/31/2024 6:38 AM [facility] O2 SATURATION POC 98 95 - 98 % 10/31/2024 6:38 AM [facility] SODIUM POC 136(L) 138 - 146 mmol/L 10/31/2024 6:38 AM [facility] POTASSIUM POC 3.7 3.5 - 4.9 mmol/L 10/31/2024 6:38 AM [facility] HEMATOCRIT POC 37(L) 38 - 51 % 10/31/2024 6:38 AM [facility] PH TEMP CORRECT 7.43 7.35 - 7.45 10/31/2024 6:38 AM [facility] PCO2 TEMP CORRECT 44 35 - 45 mm Hg 10/31/2024 6:38 AM [facility] PO2 TEMP CORRECT 94 80 - 105 mm Hg 10/31/2024 6:38 AM [facility] SPECIMEN SOURCE, GASES POC Arterial 10/31/2024 6:38 AM [facility] CALCIUM IONIZED POC 5.0 4.8 - 5.2 mg/dL 10/31/2024 6:38 AM [facility] TCO2 (CALC) POC 31(H) 23 - 27 mmol/L 10/31/2024 6:38 AM CDT [facility] LITER FLOW 4.0 L/min 10/31/2024 6:38 AM CDT [facility] PUNC SITE POC ART PUNCT 10/31/2024 6:38 AM CDT [facility] SOURCE OF OXYGEN POC Cannula 10/31/2024 6:38 AM CDT [facility] Blood, arterial 10/31/2024 6 :38 AM CDT 10/31/2024 6:40 AM CDT us Aggie Rivas DO ABG ORDERABLES Final Result [facility] CLIA # [id number] [address] [place] [address] * XR CHEST PA OR AP 1 VW (10/31/2024 6:18 AM CDT) Anatomical Region Laterality Modality Chest Computed Radiogr aphy 10/31/2024 6:18 AM CDT Impressions 10/31/2024 7:24 AM CDT IMPRESSION: Please see below. Exam: XR CHEST PA OR AP 1 VW Date/Time of Exam: 10/31/2024 6:18 AM Reason For Exam: Shortness of Breath SOB. Diagnosis: See Reason for Exam. Findings: The AP supine study is compared to the exam of 10/29/2024. Lung volumes are low. There is no pneumothorax. There are trace bilateral pleural effusions, left worse than right. There is minimal hazy left basilar infiltrate or atelectasis. The lungs are otherwise clear. Heart size is probably within normal limits when allowing for the poor depth of inspiration. There is slight prominence of the pulmonary markings also probably secondary to the poor depth of inspiration. No acute bony abnormality is suspected. Postsurgical changes of the cervical spine are again noted. IMPRESSION: Probable trace bilateral pleural effusions, left worse than right. Minimal hazy left basilar infiltrate or atelectasis. Narrative Procedure Note Yoselyn Leyva MD - 10/31/2024 IMPRESSION: Please see below. Exam: XR CHEST PA OR AP 1 VW Date/Time of Exam: 10/31/2024 6:18 AM Reason For Exam: Shortness of Breath SOB. Diagnosis: See Reason for Exam. Findings: The AP supine study is compared to the exam of 10/29/2024. Lung volumes are low. There is no pneumothorax. There are trace bilateral pleural effusions, left worse than right. There is minimal hazy left basilar infiltrate or atelectasis. The lungs are otherwise clear. Heart size is probably within normal limits when allowing for the poor depth of inspiration. There is slight prominence of the pulmonary markings also probably secondary to the poor depth of inspiration. No acute bony abnormality is suspected. Postsurgical changes of the cervical spine are again noted. IMPRESSION: Probable trace bilateral pleural effusions, left worse than right. Minimal hazy left basilar infiltrate or atelectasis. [employer] Aggie Rivas DO DIAGNOSTIC IMAGING ORDERABLES Fi nal Result * (ABNORMAL) BRAIN NATRIURETIC PEPTIDE, BNP OR PROBNP (10/31/2024 6:16 AM CDT) PROBNP, N TERMINAL 247(H) 0 - 125 pg/mL 10/31/2024 6:54 AM CDT [facility] Comment: INTERPRETIVE COMMENT based on [...] years: >1800 pg/mL Blood Venipuncture / Unknown 10/31/2024 6:16 AM CDT 10/31/2024 6:22 AM CDT [employer] Aggie Rivas DO CHEMISTRY ORDERABLES Final Resul t Performing Organization Address [facility] Co de Phone Number [facility] CLIA # [id number] [address] [address] * (ABNORMAL) HEMOGLOBIN A1C (10/31/2024 3:08 AM CDT) Pathologist [facility] HEMOGLOBIN A1C 10.4(H) <=5.6 % 11/02/2024 10:13 AM CDT [facility] EST. AVG GLUCOSE, A1C 252 mg/dL 11/02/2024 10:13 AM CDT [facility] Blood Venipuncture / Unknown 10/31/2024 3:08 AM CDT 10/31/2024 3:13 AM CDT Narrative [facility] - 11/02/2024 10:13 AM CDT HGB A1C INTERPRETATION NORMAL: <5.7% PRE-DIABETES: 5.7 - 6.4% DIABETES: 6.5% OR GREATER Danyell Dewitt MD CHEMISTRY ORDERABLES Final Result Performing Organization Address [facility] Co de Phone Number [facility] CLIA # [id number] [facility] [address] [id number] * (ABNORMAL) CBC WITH DIFFERENTIAL (10/31/2024 3:08 AM CDT) Pathologist [facility] WBC 7.0 4.8 - 10.8 K/uL 10/31/2024 3:26 AM CDT [facility] NRBCS 2(H) <1 % 10/31/2024 3:26 AM CDT [facility] RBC 2.93(L) 4.20 - 5.40 M/uL 10/31/2024 3:26 AM CDT [facility] HEMOGLOBIN 8.9(L) 12.0 - 16.0 g/dL 10/31/2024 3:26 AM CDT [facility] HEMATOCRIT 28.6(L) 36.0 - 46.0 % 10/31/2024 3:26 AM [facility] MCV 97.6 84.0 - 103.0 fL 10/31/2024 3:26 AM [facility] MCH 30.4 27.0 - 34.0 pg 10/31/2024 3:26 AM [facility] MCHC 31.1 30.0 - 35.0 g/dL 10/31/2024 3:26 AM [facility] PLATELETS 146 140 - 440 K/uL 10/31/2024 3:26 AM [facility] [employer] [facility] MPV 10.7 8.9 - 12.8 fL 10/31/2024 3:26 AM [facility] RDW 18.0(H) 11.0 - 14.5 % 10/31/2024 3:26 AM [facility] [employer] [facility] RDW-STDEV 64.5(H) 37.0 - 54.0 fL 10/31/2024 3:26 AM [facility] [employer] [facility] NEUTROPHILS 58 42 - 75 % 10/31/2024 3:26 AM [facility] LYMPHOCYTES 26 24 - 44 % 10/31/2024 3:26 AM [facility] MONOCYTES 13(H) 2 - 10 % 10/31/2024 3:26 AM [facility] [employer] [facility] EOSINOPHILS 1 0 - 7 % 10/31/2024 3:26 AM [facility] [employer] [facility] BASOPHILS 0 0 - 1 % 10/31/2024 3:26 AM [facility] IMMATURE GRANULOCYTES 2 0 - 2 % 10/31/2024 3:26 AM [facility] NEUTROPHIL ABSOLUTE 4.05 2.00 - 8.00 K/uL 10/31/2024 3:26 AM [facility] LYMPHOCYTE ABSOLUTE 1.81 1.20 - 4.00 K/uL 10/31/2024 3:26 AM [facility] MONOCYTE ABSOLUTE 0.92(H) 0.10 - 0.60 K/uL 10/31/2024 3:26 AM CDT [facility] EOSINOPHIL ABSOLUTE 0.06 0.00 - 0.70 K/uL 10/31/2024 3:26 AM CDT [facility] BASOPHILS ABSOLUTE 0.03 0.00 - 0.20 K/uL 10/31/2024 3:26 AM CDT [facility] IMMATURE GRANULOCYTES ABSOLUTE 0.11(H) 0.00 - 0.10 K/uL 10/31/2024 3:26 AM CDT [facility] SMEAR REVIEWED: NN - No Action Needed 10/31/2024 3:26 AM CDT [facility] Blood Venipuncture / Unknown 10/31/2024 3:08 AM CDT 10/31/2024 3:13 AM CDT Aggie Rivas DO HEMATOLOGY ORDERABLES Final Resu lt Performing Organization Address City/[facility]/ZIP Co de Phone Number [facility] CLIA # [id number] [address] [place], [place] [id number] * (ABNORMAL) TROPONIN BASELINE, 5TH GEN (10/31/2024 1:11 AM CDT) TROPONIN T, BASELINE 5TH GEN 24(H) <=10 ng/L 10/31/2024 6:24 AM CDT [facility] Blood Venipuncture / Unknown 10/31/2024 1:11 AM CDT 10/31/2024 1:22 AM CDT Narrative [facility] - 10/31/2024 6:24 AM CDT Troponin elevated. Aggie Rivas DO CHEMISTRY ORDERABLES Final Resul t Performing Organization Address City/[facility]/ZIP Co de Phone Number [facility] CLIA # [id number] [address] [place], [place] [address] * LIPASE (10/31/2024 1:11 AM CDT) LIPASE 21 13 - 60 U/L 10/31/2024 6:26 AM CDT [facility] Blood Venipuncture / Unknown 10/31/2024 1:11 AM CDT 10/31/2024 1:22 AM CDT Aggie Rivas DO CHEMISTRY ORDERABLES Final Resul t [facility] CLIA # [id number] [address] [place] [address] * (ABNORMAL) COMPREHENSIVE METABOLIC PANEL (10/31/2024 1:11 AM CDT) SODIUM 139 136 - 145 mmol/L 10/31/2024 1:53 AM CDT [facility] POTASSIUM 4.1 3.5 - 5.1 mmol/L 10/31/2024 1:53 AM CDT [facility] CHLORIDE 99 98 - 107 mmol/L 10/31/2024 1:53 AM CDT [facility] CO2 28 22 - 29 mmol/L 10/31/2024 1:53 AM T [facility] CALCIUM 9.4 8.6 - 10.0 mg/dL 10/31/2024 1:53 AM CDT [facility] BUN 28(H) 6 - 20 mg/dL 10/31/2024 1:53 AM CDT [facility] CREATININE 0.69 0.51 - 0.95 mg/dL 10/31/2024 1:53 AM T [facility] GLUCOSE 399(H) 74 - 99 mg/dL 10/31/2024 1:53 AM T [facility] TOTAL PROTEIN 6.5 6.4 - 8.3 g/dL 10/31/2024 1:53 AM T [facility] ALBUMIN 3.6 3.5 - 5.2 g/dL 10/31/2024 1:53 AM CDT [facility] BILIRUBIN TOTAL 0.2 0.0 - 1.0 mg/dL 10/31/2024 1:53 AM CDT [facility] ALKALINE PHOSPHATASE 128(H) 35 - 104 U/L 10/31/2024 1:53 AM CDT [facility] AST 15 10 - 35 U/L 10/31/2024 1:53 AM T [facility] Comment:Hemolysis present. R esult may be falsely elevated. ALT 19 <=35 U/L 10/31/2024 1:53 AM T [facility] GFR >60 >=60 mL/min/1.7 3 sq meter 10/31/2024 1:53 AM T [facility] Comment:eGFR calculated with 2020 CKD-EPI equation. Vegetarian diet, extremely high or low muscle mass, and may affect results. Cystatin C with Glomerular Filtration Rate is a suitable alternative for these patients. ANION GAP 12 9 - 20 mmol/L 10/31/2024 1:53 AM CDT [facility] Blood Venipuncture / Unknown 10/31/2024 1:11 AM CDT 10/31/2024 1:22 AM CDT us Aggie Rivas DO CHEMISTRY ORDERABLES Final Resul t [facility] CLIA # [id number] [address] [address] * EKG 12-LEAD (10/30/2024 10:47 PM CDT) 10/30/2024 10:4 7 PM CDT Narrative INTERFACE SYSTEM - 10/31/2024 6:56 AM CDT [address] [address] Test Date: 2024-10-30 Pat Name: LE DIAZ Department: 11 Room: Gender: Female Knot Cutter: [id number] : 1965 Requested By: Order Number: [id number] Reading : Echo Tapia Measurements Intervals [employer] Rate: 95 P: 43 WI: 148 QRS: 55 QRSD: 78 T: 26 QT: 340 QTc: 427 Interpretive Statements Normal sinus rhythm Possible Left atrial enlargement Cannot rule out Inferior infarct, age undetermined Abnormal ECG Electronically Signed On 10-31-2024 6:56:31 CDT by Echo Tapia Procedure Note Provider, Historical - 10/31/2024 [id number] [place] [address] Test Date: 2024-10-30 Pat Name: LE DIAZ Department: 11 Room: Gender: Female Knot Cutter: [id number] : 1965 Requested By: Order Number: [id number] Reading MD: Echo Tapia Measurements Intervals [employer] Rate: 95 P: 43 WI: 148 QRS: 55 QRSD: 78 T: 26 QT: 340 QTc: 427 Interpretive Statements Normal sinus rhythm Possible Left atrial enlargement Cannot rule out Inferior infarct, age undetermined Abnormal ECG Electronically Signed On 10-31-2024 6:56:31 CDT by Echo Tapia Aggie Rivas DO ECG ORDERABLES Final Result INTERFACE SYSTEM Refer to clinic/hospital department documented in this encounter Visit Diagnoses Diagnosis syncopal episode- Primary Syncope and collapse Chest pain, unspecified type Shortness of breath Type 2 diabetes mellitus with hyperglycemia, with long-term current use of insulin (CMS/HCC) Abnormal chest CT Nonspecific (abnormal) findings on radiological and other examination of other intrathoracic organs Lung mass Swelling, mass, or lump in chest Acute on chronic combined systolic and diastolic CHF (congestive heart failure) (CMS/HCC) Shortness of breath Other chest pain NSTEMI (non-ST elevated myocardial infarction) (CMS/HCC) Acute myocardial infarction, subendocardial infarction, episode of care unspecified History of breast cancer Personal history of malignant neoplasm of breast HFrEF (heart failure with reduced ejection fraction) (CMS/HCC) Peripheral edema Edema Mixed hyperlipidemia Essential hypertension Unspecified essential hypertension Abnormal chest CT Nonspecific (abnormal) findings on radiological and other examination of other intrathoracic organs Chronic anticoagulation Encounter for long-term (current) use of anticoagulants Chronic pain syndrome Chronic respiratory failure with hypoxia, on home O2 therapy (CMS/HCC) Mass of left lung Diabetes mellitus with hyperglycemia (CMS/HCC) Hepatic steatosis Other chronic nonalcoholic liver disease COPD exacerbation (CMS/HCC) Obstructive chronic bronchitis with exacerbation documented in this encounter Administered Medications Inactive Administered Medications - up to 3 most recent administrations Medication Order MAR Action Action Date Dose Rate Site acetaminophen (TYLENOL) tablet 650 mg 650 mg, Oral, ONE TIME ONLY, 1 dose, On Thu10/31/24 at 0630, Routine Given 10/31/2024 8:06 AM CDT 650 mg albuterol sulfate 90 mcg/Actuation inhaler 2 Puff 2 Puff, Inhalation, EVERY 6 HOURS PRN RESPIRATORY, Starting on Thu10/31/24 at 1038, Until Thu11/04/24 at 1824, Shortness of Breath, Routine, Previous Med: Ventolin HFA 90 mcg/actuation inhaler - Orig Sig - Take 2 Puffs by inhalation every 6 hours as needed. Given 11/04/2024 1:27 PM CDT 2 Puffs Given 11/01/2024 3:36 PM CDT 2 Puffs aspirin (CARTER CHEWABLE) chewable tablet 81 mg 81 mg, Oral, DAILY, First dose on Thu10/31/24 at 1200, Until Discontinued, Routine, Previous Med: aspirin (CARTER CHEWABLE) 81 mg Tablet, Chewable - Orig Sig - Take 81 mg by mouth daily. Given 11/04/2024 9:25 AM CDT 81 mg Given 11/03/2024 8:41 AM CDT 81 mg Given 11/02/2024 9:00 AM CDT 81 mg atorvastatin (LIPITOR) tablet 40 mg 40 mg, Oral, DAILY AT BEDTIME, First dose on Thu10/31/24 at 2100, Until Discontinued, Routine, Previous Med: atorvastatin (LIPITOR) 40 mg tablet - Orig Sig - Take 40 mg by mouth daily at bedtime. Given 11/03/2024 8:23 PM CDT 40 mg Given 11/02/2024 8:48 PM CDT 40 mg Given 11/01/2024 9:51 PM CDT 40 mg cefTRIAXone (ROCEPHIN) 2,000 mg in sodium chloride 0.9% 50 mL IVPB (MBP) 2,000 mg, IV, ONE TIME ONLY, 1 dose, On Thu10/31/24 at 0845, Stat, Antibiotic Indication: Pneumonia - Community-acquired(CAP) New 10/31/2024 1:48 PM CDT 2,000 mg 118 mL/ hr cefTRIAXone (ROCEPHIN) 2,000 mg in sodium chloride 0.9% 50 mL IVPB (MBP) 2,000 mg, IV, EVERY 24 HOURS (DAILY), First dose on Thu11/01/24 at 0900, Until Discontinued, Routine, Antibiotic Indication: Pneumonia - Community-acquired(CAP) New 11/03/2024 11:09 AM CDT 2,000 mg 118 mL/hr 11/02/2024 8:48 AM CDT 2,000 mg 118 mL/hr 11/01/2024 9:01 AM CDT 2,000 mg 118 mL/hr dextrose 5 % - sodium chloride 0.9 % infusion IV, at 40 mL/hr, SEE ADMIN INSTRUCTIONS, Starting on Thu11/02/24 at 0735, Until Thu11/04/24 at 1824, Routine dextrose 50% (D50) syringe 12.5 Gram 12.5 Gram, IV, SEE ADMIN INSTRUCTIONS, Starting on Thu11/02/24 at 0735, Until Thu11/04/24 at 1824, Routine dextrose 50% (D50) syringe 25 Gram 25 Gram, IV, SEE ADMIN INSTRUCTIONS, Starting on Thu11/02/24 at 0735, Until Thu11/04/24 at 1824, Routine doxycycline hyclate (VIBRAMYCIN) 100 mg in sodium chloride 0.9% 100 mL IVPB (MBP) 100 mg, IV, EVERY 12 HOURS (BlD), First dose on Thu10/31/24 at 1200, Until Discontinued, Routine, Antibiotic Indication: Pneumonia - Community-acquired(CAP) 11/04/2024 9:24 AM CDT 100 mg 115 mL/ hr 11/03/2024 8:34 PM CDT 100 mg 115 mL/hr 11/03/2024 9:35 AM CDT 100 mg 115 mL/hr enoxaparin (LOVENOX) injection 100 mg 100 mg, subCUT, EVERY 12 HOURS, First dose on Thu10/31/24 at 1200, Until Discontinued, Routine, Previous Med: enoxaparin (LOVENOX) 100 mg/mL injection - Orig Sig - Inject 100 mg by subcutaneous injection every 12 hours. , Indication: Bridging while on/off other anticoagulant Given 11/01/2024 11:04 PM CDT 100 mg Abdomen, Right Lower Quadrant Given 11/01/2024 11:26 AM CDT 100 mg A bdominal Tissue Given 11/01/2024 12:11 AM CDT 100 mg A bdomen, Right Lower Quadrant fluticasone furoate-vilanteroL (BREO ELLIPTA) 100-25 mcg/dose inhaler 1 Puff 1 Puff, Inhalation, DAILY RESPIRATORY, First dose on Thu10/31/24 at 1300, Until Discontinued, Routine Given 11/04/2024 7:13 AM CDT 1 Puff Given 11/03/2024 7:20 AM CDT 1 Puff Given 11/02/2024 9:04 AM CDT 1 Puff furosemide (LASIX) tablet 80 mg 80 mg, Oral, TWO TIMES DAILY, First dose on Thu10/31/24 at 1200, Until Discontinued, Routine, Previous Med: furosemide (LASIX) 80 mg tablet - Orig Sig - Take 1 Tablet (80 mg) by mouth 2 times daily. , On hold since Thu11/01/2024 at 2306 until manually unheld Given 11/01/2024 9:51 PM CDT 80 m g Given 11/01/2024 8:51 AM CDT 80 mg Given 10/31/2024 8:41 PM CDT 80 mg glucagon HCL 1 mg/mL injection 1 mg 1 mg, IM, SEE ADMIN INSTRUCTIONS, Starting on Thu11/02/24 at 0735, Until Thu11/04/24 at 1824, Routine HYDROcodone-acetaminophen (NORCO) 10-325 mg per tablet 1 Tablet 1 Tablet, Oral, EVERY 4 HOURS PRN, Starting on Thu10/31/24 at 1045, Until Thu11/04/24 at 1824, Pain, Moderate, Routine Given 11/04/2024 1:28 PM CDT 1 Tablet Given 11/04/2024 9:26 AM CDT 1 Tablet Given 11/04/2024 4:51 AM CDT 1 Tablet insulin glargine-yfgn injection 10 Units 10 Units, subCUT, ONE TIME ONLY, 1 dose, On Thu11/02/24 at 1615, Routine Given 11/02/2024 4:50 PM CDT 10 Units Arm, Left Upper insulin glargine-yfgn injection 15 Units 15 Units (rounded from 14.55 Units = 0.15 Units/kg 97 kg), subCUT, DAILY WITH BREAKFAST, First dose on Thu11/01/24 at 0800, Until Discontinued, Routine, On hold since Thu11/01/2024 at 2306 until manually unheld Given 11/01/2024 8:49 AM CDT 15 Units Abdominal Tissue insulin glargine-yfgn injection 20 Units 20 Units, subCUT, DAILY AT BEDTIME, First dose on Thu10/31/24 at 2100, Until Discontinued, Routine Given 10/31/2024 8:49 PM CDT 20 Units Abdomen, Left Lower Quadrant insulin glargine-yfgn injection 35 Units 35 Units, subCUT, ONE TIME ONLY, 1 dose, On Thu11/01/24 at 2115, Routine Given 11/01/2024 10:00 PM CDT 35 Units Abdomen, Left Lower Quadrant insulin glargine-yfgn injection 35 Units 35 Units, subCUT, DAILY AT BEDTIME, First dose on Thu11/02/24 at 2100, Until Discontinued, Routine Given 11/03/2024 8:22 PM CDT 35 Units Abdominal Tissue Given 11/02/2024 8:50 PM CDT 35 Units Ab domen, Left Lower Quadrant insulin glargine-yfgn injection 7 Units 7 Units, subCUT, DAILY WITH BREAKFAST, First dose on Thu11/04/24 at 0845, Until Discontinued, Routine Given 11/04/2024 9:24 AM CDT 7 Units Arm, Left insulin lispro (HumaLOG,ADMELOG) injection 0-12 Units 0-12 Units, subCUT, THREE TIMES DAILY WITH MEALS, First dose on Thu10/31/24 at 1200, Until Discontinued, Routine, On hold since Thu11/01/2024 at 2311 until manually unheld Given 11/01/2024 4:37 PM CDT 12 Units Abdominal Tissue Given 11/01/2024 11:32 AM CDT 12 Units A bdominal Tissue Given 11/01/2024 7:39 AM CDT 12 Units Ab dominal Tissue insulin lispro (HumaLOG,ADMELOG) injection 0-12 Units 0-12 Units, subCUT, THREE TIMES DAILY WITH MEALS, First dose on Thu11/02/24 at 0800, Until Discontinued, Routine Given 11/04/2024 11:30 AM CDT 8 Units Arm, Left Given 11/04/2024 7:14 AM CDT 4 Units Ar m, Left Given 11/03/2024 5:55 PM CDT 12 Units Ab domen, Left Lower Quadrant insulin lispro (HumaLOG,ADMELOG) injection 0-3 Units 0-3 Units, subCUT, DAILY AT BEDTIME, First dose on Thu10/31/24 at 2100, Until Discontinued, Routine, On hold since Thu11/01/2024 at 2311 until manually unheld Given 11/01/2024 10:00 PM CDT 3 Units Abdomen, Left Lower Quadrant Given 10/31/2024 8:54 PM CDT 3 Units Ab domen, Left Lower Quadrant insulin lispro (HumaLOG,ADMELOG) injection 0-6 Units 0-6 Units, subCUT, DAILY AT BEDTIME, First dose on Thu11/02/24 at 2100, Until Discontinued, Routine Given 11/03/2024 8:22 PM CDT 4 Units Abdominal Tissue Given 11/02/2024 8:54 PM CDT 4 Units Ab domen, Left Lower Quadrant insulin lispro (HumaLOG,ADMELOG) injection 10 Units 10 Units, subCUT, THREE TIMES DAILY WITH MEALS, First dose (after last modification) on Thu11/04/24 at 1200, Until Discontinued, Routine Given 11/04/2024 11:31 AM CDT 10 Units Arm, Left insulin lispro (HumaLOG,ADMELOG) injection 3 Units 3 Units, subCUT, ONE TIME ONLY, 1 dose, On Thu10/31/24 at 2115, Routine Given 10/31/2024 9:22 PM CDT 3 Units Abdomen, Right Lower Quadrant insulin lispro (HumaLOG,ADMELOG) injection 7 Units 7 Units, subCUT, THREE TIMES DAILY WITH MEALS, First dose on Thu11/01/24 at 0800, Until Discontinued, Routine, On hold since Thu11/01/2024 at 2306 until manually unheld Given 11/01/2024 4:38 PM CDT 7 Units Abdominal Tissue Given 11/01/2024 11:33 AM CDT 7 Units A bdominal Tissue Given 11/01/2024 8:50 AM CDT 7 Units Ab dominal Tissue insulin lispro (HumaLOG,ADMELOG) injection 8 Units 8 Units, subCUT, THREE TIMES DAILY WITH MEALS, First dose on Thu11/02/24 at 0800, Until Discontinued, Routine Given 11/04/2024 7:13 AM CDT 8 Units Arm, Left Given 11/03/2024 5:54 PM CDT 8 Units Ab domen, Left Lower Quadrant Given 11/03/2024 11:06 AM CDT 8 Units A rm, Left insulin regular (HumuLIN R,NovoLIN R) 1 Units/mL in sodium chloride 0.9 % infusion 0-25 Units/hr (0-25 mL/hr), IV, TITRATE, Starting on Thu11/01/24 at 2315, Until Thu11/02/24 at 0735 Rate Verify 11/02/2024 7:25 AM CDT 3 Units/hr 3 mL/hr Rate Change 11/02/2024 7:23 AM CDT 3 Units/hr 3 mL/hr Rate Verify 11/02/2024 6:12 AM CDT 4 Units/hr 4 mL/hr insulin regular (HumuLIN R,NovoLIN R) injection 10 Units 10 Units, IV, ONE TIME ONLY, 1 dose, On Thu11/01/24 at 0330, Routine Given 11/01/2024 3:53 AM CDT 10 Units insulin regular (HumuLIN R;NovoLIN R) bolus from infusion 0-4 Units 0-4 Units, IV, ONE TIME ONLY, 1 dose, On Thu11/01/24 at 2315, Routine Bolus from Bag 11/02/2024 1:25 AM CDT 4 Units iopamidoL (ISOVUE-300) 61% injection (drawn from multi-use bulk pack) 75 mL 75 mL, IV, INTRA-PROCEDURE ONCE, 1 dose, Starting on Thu10/31/24 at 0838, Until Thu10/31/24 at 0904, Routine Contrast Given 10/31/2024 9:04 AM CDT 75 mL ipratropium-albuteroL (DUONEB) 0.5 mg-3 mg(2.5 mg base)/3 mL inhalation solution 3 mL 3 mL, Inhalation, EVERY 4 HOURS PRN RESPIRATORY, Starting on Thu10/31/24 at 1023, Until Thu11/04/24 at 1824, Shortness of Breath, Routine Given 11/04/2024 11:59 AM CDT 3 mL Given 11/02/2024 3:59 PM CDT 3 mL Given 11/01/2024 12:18 PM CDT 3 mL isosorbide mononitrate (IMDUR) SR 24 hour tablet 30 mg 30 mg, Oral, DAILY, First dose on Thu10/31/24 at 1200, Until Discontinued, Routine, Previous Med: isosorbide mononitrate (IMDUR) 30 mg Extended Release 24 hour tablet - Orig Sig - TAKE 1 TABLET BY MOUTH EVERY DAY Given 11/04/2024 9:25 AM CDT 30 mg Given 11/03/2024 9:35 AM CDT 30 mg Given 11/02/2024 8:58 AM CDT 30 mg methocarbamoL (ROBAXIN) tablet 500 mg 500 mg, Oral, EVERY 6 HOURS, First dose on Thu11/04/24 at 0845, Until Discontinued, Routine Given 11/04/2024 9:25 AM CDT 500 mg methylPREDNISolone sodium succinate (SOLU-Medrol) 40 mg in sterile water 1 mL injection 40 mg, IV, EVERY 8 HOURS, First dose on Thu10/31/24 at 1300, Until Discontinued, Routine, On hold since Thu11/01/2024 at 0749 until manually unheld Given 11/01/2024 5:31 AM CDT 40 mg Given 10/31/2024 9:00 PM CDT 40 mg Given 10/31/2024 12:26 PM CDT 40 mg metoprolol succinate (TOPROL XL) SR 24 hour tablet 25 mg 25 mg, Oral, DAILY, First dose on Thu10/31/24 at 1200, Until Discontinued, Routine, Previous Med: metoprolol succinate (TOPROL XL) 25 mg Extended Release 24 hour tablet - Orig Sig - Take 1 Tablet (25 mg) by mouth daily. Given 11/04/2024 9:25 AM CDT 25 mg Given 11/03/2024 8:40 AM CDT 25 mg Given 11/01/2024 8:51 AM CDT 25 mg morphine 4 mg/mL injection 2 mg 2 mg, IV, EVERY 4 HOURS PRN, Starting on Thu10/31/24 at 1040, Until Thu11/02/24 at 0734, Pain, Severe, Routine Given 11/02/2024 2:56 AM CDT 2 mg Given 11/01/2024 11:05 PM CDT 2 mg Given 11/01/2024 6:09 PM CDT 2 mg morphine 4 mg/mL injection 2 mg 2 mg, IV, EVERY 4 HOURS PRN, Starting on Thu11/02/24 at 1349, Until Thu11/04/24 at 0840, Pain (See admin instructions), Routine Given 11/04/2024 8:00 AM CDT 2 mg Given 11/04/2024 3:25 AM CDT 2 mg Given 11/03/2024 11:20 PM CDT 2 mg nitroglycerin (NITROSTAT) tablet 0.4 mg 0.4 mg, Sublingual, EVERY 5 MINUTES PRN, 3 doses, Starting on Thu10/31/24 at 0809, Until Thu11/04/24 at 1824, Chest Pain, Routine Given 10/31/2024 8:27 AM CDT 0.4 mg Admin by Another Clinician (Comment) 10/31/2024 8:10 AM CD T 0.4 mg NITROGLYCERIN 0.4 MG SUBLINGUAL TABLET (CABINET OVERRIDE) 1 dose, Starting on Thu10/31/24 at 0803, Until Thu10/31/24 at 0810, Harika Watson L: cabinet override OLANZapine (ZyPREXA) tablet 10 mg 10 mg, Oral, DAILY AT BEDTIME, First dose on Thu10/31/24 at 2100, Until Discontinued, Routine, Previous Med: OLANZapine (ZyPREXA) 10 mg tablet - Orig Sig - Take 10 mg by mouth daily at bedtime. Given 11/03/2024 8:23 PM CDT 10 mg Given 11/02/2024 8:48 PM CDT 10 mg Given 11/01/2024 9:59 PM CDT 10 mg perflutren lipid microspheres (DEFINITY) 1.3 mL in sodium chloride 0.9% 10 mL injection 0-10 mL, IV, INTRA-PROCEDURE ONCE, 1 dose, Starting on Thu11/02/24 at 1030, Until Thu11/02/24 at 0850, Routine Contrast Given 11/02/2024 8:50 AM CDT 2 mL polyethylene glycol (MIRALAX) packet 17 Gram 17 Gram, Oral, TWO TIMES DAILY PRN, Starting on Thu10/31/24 at 1053, Until Thu11/04/24 at 1824, Constipation, Routine Given 11/02/2024 9:06 PM CDT 17 Grams predniSONE (DELTASONE) tablet 40 mg 40 mg, Oral, DAILY WITH BREAKFAST, 4 doses, First dose on Thu11/01/24 at 1045, Last dose on Thu11/04/24 at 0800, Routine Given 11/03/2024 7:12 AM CDT 40 mg Given 11/02/2024 8:59 AM CDT 40 mg Given 11/01/2024 11:26 AM CDT 40 mg ranolazine ER (RANEXA) SR 12 hour tablet 500 mg 500 mg, Oral, EVERY 12 HOURS (BlD), First dose on Thu10/31/24 at 1200, Until Discontinued, Routine, Previous Med: ranolazine ER (RANEXA) 500 mg Extended Release 12 hour tablet - Orig Sig - Take 1 Tablet (500 mg) by mouth every 12 hours. Given 11/04/2024 9:28 AM CDT 500 mg Given 11/03/2024 8:24 PM CDT 500 mg Given 11/03/2024 8:40 AM CDT 500 mg sacubitriL-valsartan (ENTRESTO) 24-26 mg tablet 1 Tablet 1 Tablet, Oral, TWO TIMES DAILY, First dose on Thu10/31/24 at 1200, Until Discontinued, Routine, Previous Med: sacubitriL-valsartan (ENTRESTO) 24-26 mg Tablet - Orig Sig - Take 1 Tablet by mouth 2 times daily. Given 11/04/2024 9:25 AM CDT 1 Tabl et Given 11/03/2024 8:23 PM CDT 1 Tablet Given 11/03/2024 8:40 AM CDT 1 Tablet sodium chloride 0.9 % flush bag 25 mL 25 mL, IV, SEE ADMIN INSTRUCTIONS, Starting on Thu10/30/24 at 2241, Until Thu11/04/24 at 1824, Routine sodium chloride 0.9 % infusion IV, at 50 mL/hr, CONTINUOUS, Starting on Thu11/01/24 at 1200, Until Thu11/02/24 at 0920, Routine Rate Verify 11/01/2024 12:37 PM CDT 50 mL/hr New Bag 11/01/2024 12:35 PM CDT 50 mL/hr sodium chloride 0.9 % infusion IV, at 50 mL/hr, CONTINUOUS, Starting on Thu11/01/24 at 2300, Until Thu11/02/24 at 2259, Routine Rate Verify 11/02/2024 7:52 PM CDT 50 mL/ hr Rate Verify 11/02/2024 6:12 AM CDT 50 mL/hr Rate Verify 11/02/2024 5:00 AM CDT 50 mL/hr sodium chloride flush injection 10 mL 10 mL, IV, EVERY 12 HOURS (BlD), First dose on Thu10/30/24 at 2245, Until Discontinued, Routine Given 11/03/2024 8:25 PM CDT 10 mL Given 11/03/2024 9:00 AM CDT 10 mL Given 11/02/2024 8:48 PM CDT 10 mL sodium chloride flush injection 10 mL 10 mL, IV, SEE ADMIN INSTRUCTIONS, Starting on Thu10/30/24 at 2241, Until Thu11/04/24 at 1824, Routine sodium chloride flush injection 10 mL 10 mL, IV, EVERY 12 HOURS, First dose on Thu10/31/24 at 0845, Until Discontinued, Routine Given 11/03/2024 8:24 PM CDT 10 mL Given 11/03/2024 8:45 AM CDT 10 mL Given 11/02/2024 8:48 PM CDT 10 mL sodium chloride flush injection 10 mL 10 mL, IV, TWO TIMES DAILY, First dose on Thu10/31/24 at 0900, Until Discontinued, Routine Given 11/03/2024 8:24 PM CDT 10 mL Given 11/03/2024 9:00 AM CDT 10 mL Given 11/02/2024 8:49 PM CDT 10 mL sodium chloride flush injection 10 mL 10 mL, IV, EVERY 12 HOURS (BlD), First dose on Thu10/31/24 at 1045, Until Discontinued, Routine Given 11/04/2024 9:25 AM CDT 10 mL Given 11/03/2024 8:24 PM CDT 10 mL Given 11/03/2024 9:00 AM CDT 10 mL sodium chloride flush injection 5 mL 5 mL, IV, SEE ADMIN INSTRUCTIONS, Starting on Thu10/31/24 at 0833, Until Thu11/04/24 at 1824, Routine ticagrelor (BRILINTA) tablet 90 mg 90 mg, Oral, TWO TIMES DAILY, First dose on Thu10/31/24 at 2100, Until Discontinued, Routine, Previous Med: ticagrelor (Brilinta) 90 mg Tablet - Orig Sig - Take 90 mg by mouth 2 times daily. Given 11/04/2024 9:25 AM CDT 90 mg Given 11/03/2024 8:23 PM CDT 90 mg Given 11/03/2024 8:40 AM CDT 90 mg umeclidinium (INCRUSE ELLIPTA) 62.5 mcg/actuation inhaler 1 Puff 1 Puff, Inhalation, DAILY RESPIRATORY, First dose on Thu10/31/24 at 1300, Until Discontinued, Routine Given 11/04/2024 7:13 AM CDT 1 Puff Given 11/03/2024 7:20 AM CDT 1 Puff Given 11/02/2024 9:04 AM CDT 1 Puff warfarin (COUMADIN) tablet 12 mg 12 mg, Oral, DAILY LATE, First dose on Thu10/31/24 at 1700, Until Discontinued, Routine, Previous Med: warfarin (COUMADIN) 6 mg tablet - Orig Sig - Take 2 Tablets (12 mg) by mouth late in the day. , Indication: TREATMENT for VTE/PE/DVT, Goal INR: 2 to 3 Given 11/03/2024 5:56 PM CDT 12 mg Given 11/01/2024 5:06 PM CDT 12 mg Given 10/31/2024 8:55 PM CDT 12 mg warfarin daily dose reminder This is a reminder only. Nursing to place an additional order for a specific warfarin dose (daily) based on INR parameters. Dosed daily by provider When acknowledging this reminder, NURSING RESPONSIBILITY is to EITHER place an order for the appropriate dose of warfarin per protocol and day of therapy OR to call the practitioner for a warfarin order if not already placed. [facility] List 3 [employer] Handle according to local facility process, Routine, Starting on Thu11/03/24 at 1300 Acknowledged 11/04/2024 1:00 PM CDT Acknowledged 11/03/2024 1:00 PM CDT zinc OXIDE-cod liver oil (DESITIN) 40 % topical paste Topical, SEE ADMIN INSTRUCTIONS, Starting on 11/03/24 at 2017, Until Thu11/04/24 at 1824, Routine documented in this encounter Active and Recently Administered Medications Times are shown in CDT. Scheduled Medication Order 11/02/2024 11/03/2024 11/04/2024 aspirin (CARTER CHEWABLE) chewable tablet 81 mg 81 mg, Oral, DAILY, First dose on Thu10/31/24 at 1200, Until Discontinued, Routine, Previous Med: aspirin (CARTER CHEWABLE) 81 mg Tablet, Chewable - Orig Sig - Take 81 mg by mouth daily. 0900 (Given - Provider: J Luis Alicea RN) 0841 (Given - Provider: Page Haile RN) 0925 (Given - Provider: Carla Walters RN) atorvastatin (LIPITOR) tablet 40 mg 40 mg, Oral, DAILY AT BEDTIME, First dose on Thu10/31/24 at 2100, Until Discontinued, Routine, Previous Med: atorvastatin (LIPITOR) 40 mg tablet - Orig Sig - Take 40 mg by mouth daily at bedtime. 2047 (Given - Provider: Erwin Lovell RN) 2022 (Given - Provider: Monalisa Galan LPN) cefTRIAXone (ROCEPHIN) 2,000 mg in sodium chloride 0.9% 50 mL IVPB (MBP) 2,000 mg, IV, EVERY 24 HOURS (DAILY), First dose on Thu11/01/24 at 0900, Until Discontinued, Routine, Antibiotic Indication: Pneumonia - Community-acquired(CAP) 0848 (New Bag - Provider: J Luis Alicea RN)0918 (Stopped - Provider: J Luis Alicea RN) 1109 (New Bag - Provider: Page Haile RN)1139 (Stopped - Provider: Page Haile RN) 0900 (Canceled Entry - Provider: Carla Walters, MARICARMEN)1300 (Not Given - Provider: Carla Walters RN - Reason: Clarify-Other (Comment) - Comment: no iv at this time) dextrose 5 % - sodium chloride 0.9 % infusion IV, at 40 mL/hr, SEE ADMIN INSTRUCTIONS, Starting on 11/02/24 at 0735, Until Thu11/04/24 at 1824, Routine dextrose 5 % in water 250 mL flush bag 25 mL 25 mL, IV, SEE ADMIN INSTRUCTIONS, Starting on Thu10/31/24 at 1039, Until Thu11/04/24 at 1824, Routine dextrose 50% (D50) syringe 12.5 Gram 12.5 Gram, IV, SEE ADMIN INSTRUCTIONS, Starting on Thu11/02/24 at 0735, Until Thu11/04/24 at 1824, Routine dextrose 50% (D50) syringe 25 Gram 25 Gram, IV, SEE ADMIN INSTRUCTIONS, Starting on Thu11/02/24 at 0735, Until Thu11/04/24 at 1824, Routine doxycycline hyclate (VIBRAMYCIN) 100 mg in sodium chloride 0.9% 100 mL IVPB (MBP) 100 mg, IV, EVERY 12 HOURS (BlD), First dose on Thu10/31/24 at 1200, Until Discontinued, Routine, Antibiotic Indication: Pneumonia - Community-acquired(CAP) 0921 (New Bag - Provider: J Luis Alicea RN)0921 (Rate Verify - Provider: Erwin Lovell RN)0948 (Stopped - Provider: Erwin Lovell RN)1021 (Stopped - Provider: J Luis Alicea RN)2049 (New Bag - Provider: Erwin Lovell RN)2149 (Stopped - Provider: Erwin Lovell RN) 0935 (New Bag - Provider: Page Haile RN)1035 (Stopped - Provider: Page Haile RN)2034 (New Bag - Provider: Monalisa Galan LPN)2134 (Stopped - Provider: Monalisa Galan LPN) 0924 (New Bag - Provider: Carla Walters RN)1024 (Stopped - Provider: Carla Walters RN) fluticasone furoate-vilanteroL (BREO ELLIPTA) 100-25 mcg/dose inhaler 1 Puff 1 Puff, Inhalation, DAILY RESPIRATORY, First dose on Thu10/31/24 at 1300, Until Discontinued, Routine 0904 (Given - Provider: J Luis Alicea RN) 0720 (Given - Provider: Page Haile RN) 0713 (Given - Provider: Carla Walters RN) furosemide (LASIX) tablet 80 mg 80 mg, Oral, TWO TIMES DAILY, First dose on Thu10/31/24 at 1200, Until Discontinued, Routine, Previous Med: furosemide (LASIX) 80 mg tablet - Orig Sig - Take 1 Tablet (80 mg) by mouth 2 times daily. , On hold since Thu11/01/2024 at 2306 until manually unheld 09 (Automatically Held - Provider: Li Anderson MD)2099 (Automatically Held - Provider: Li Anderson MD) 0900 (Automatically Held - Provider: Li Anderson MD)2099 (Automatically Held - Provider: Li Anderson MD) 09 (Automatically Held - Provider: Li Anderson MD)182 (Order Unhold - Provider: PROVIDER, DISCHARGE PATIENT) glucagon HCL 1 mg/mL injection 1 mg 1 mg, IM, SEE ADMIN INSTRUCTIONS, Starting on Thu11/02/24 at 0735, Until Thu11/04/24 at 1824, Routine insulin glargine-yfgn injection 10 Units (COMPLETED) 10 Units, subCUT, ONE TIME ONLY, 1 dose, On Thu11/02/24 at 1615, Routine 1649 (Given - Provider: J Luis Alicea RN) insulin glargine-yfgn injection 35 Units 35 Units, subCUT, DAILY AT BEDTIME, First dose on Thu11/02/24 at 2100, Until Discontinued, Routine 2049 (Given - Provider: Erwin Lovell RN) 2021 (Given - Provider: Monalisa Galan LPN) insulin glargine-yfgn injection 7 Units 7 Units, subCUT, DAILY WITH BREAKFAST, First dose on Thu11/04/24 at 0845, Until Discontinued, Routine 0924 (Given - Provider: Carla Walters, MARICARMEN) insulin lispro (HumaLOG,ADMELOG) injection 0-12 Units 0-12 Units, subCUT, THREE TIMES DAILY WITH MEALS, First dose on Thu11/02/24 at 0800, Until Discontinued, Routine 0800 (Not Given - Provider: J Luis Alicea RN - Reason: Lab results / vitals)1208 (Given - Provider: J Luis Alicea RN)1651 (Given - Provider: J Luis Alicea RN) 0841 (Given - Provider: Page Haile, MARICARMEN)1106 (Given - Provider: Page Haile, MARICARMEN)1755 (Given - Provider: SYLVIA Laird) 0714 (Given - Provider: Carla Walters RN)1130 (Given - Provider: Carla Walters RN) insulin lispro (HumaLOG,ADMELOG) injection 0-6 Units 0-6 Units, subCUT, DAILY AT BEDTIME, First dose on Thu11/02/24 at 2100, Until Discontinued, Routine 2053 (Given - Provider: Erwin Lovell RN) 2021 (Given - Provider: Monalisa Galan LPN) insulin lispro (HumaLOG,ADMELOG) injection 10 Units 10 Units, subCUT, THREE TIMES DAILY WITH MEALS, First dose (after last modification) on Thu11/04/24 at 1200, Until Discontinued, Routine 113 (Given - Provider: Carla Walters RN) insulin lispro (HumaLOG,ADMELOG) injection 8 Units (CANCELED) 8 Units, subCUT, THREE TIMES DAILY WITH MEALS, First dose on Thu11/02/24 at 0800, Until Discontinued, Routine 0800 (Not Given - Provider: J Luis Alicea RN - Reason: Lab results / vitals)1208 (Given - Provider: J Luis Alicea RN)1650 (Given - Provider: J Luis Alicea RN) 0840 (Given - Provider: Page Haile RN)1106 (Given - Provider: Page Haile RN)1754 (Given - Provider: SYLVIA Laird) 0713 (Given - Provider: Carla Walters RN) insulin regular (HumuLIN R;NovoLIN R) bolus from infusion 0-4 Units (COMPLETED) 0-4 Units, IV, ONE TIME ONLY, 1 dose, On Thu11/01/24 at 2315, Routine 0125 (Bolus from Bag - Provider: Veronica Hutchinson RN - Comment: [id number]) isosorbide mononitrate (IMDUR) SR 24 hour tablet 30 mg 30 mg, Oral, DAILY, First dose on Thu10/31/24 at 1200, Until Discontinued, Routine, Previous Med: isosorbide mononitrate (IMDUR) 30 mg Extended Release 24 hour tablet - Orig Sig - TAKE 1 TABLET BY MOUTH EVERY DAY 0858 (Given - Provider: J Luis Alicea RN) 0935 (Given - Provider: Page Haile RN) 0925 (Given - Provider: Carla Walters RN) methocarbamoL (ROBAXIN) tablet 500 mg 500 mg, Oral, EVERY 6 HOURS, First dose on Thu11/04/24 at 0845, Until Discontinued, Routine 0925 (Given - Provider: Carla Walters RN)1200 (Not Given - Provider: Carla Walters RN - Reason: Patient condition - Comment: To close to last dose given) metoprolol succinate (TOPROL XL) SR 24 hour tablet 25 mg 25 mg, Oral, DAILY, First dose on Thu10/31/24 at 1200, Until Discontinued, Routine, Previous Med: metoprolol succinate (TOPROL XL) 25 mg Extended Release 24 hour tablet - Orig Sig - Take 1 Tablet (25 mg) by mouth daily. 0900 (Not Given - Provider: J Luis Alicea RN - Reason: Patient condition) 0840 (Given - Provider: Page Haile RN) 0925 (Given - Provider: Carla Walters RN) naloxone (NARCAN) 0.4 mg/mL injection 0.1-0.4 mg 0.1-0.4 mg, IV, SEE ADMIN INSTRUCTIONS, Starting on Thu10/31/24 at 1039, Until Thu11/04/24 at 1824, Routine OLANZapine (ZyPREXA) tablet 10 mg 10 mg, Oral, DAILY AT BEDTIME, First dose on Thu10/31/24 at 2100, Until Discontinued, Routine, Previous Med: OLANZapine (ZyPREXA) 10 mg tablet - Orig Sig - Take 10 mg by mouth daily at bedtime. 2047 (Given - Provider: Erwin Lovell RN) 2022 (Given - Provider: Monalisa Galan LPN) perflutren lipid microspheres (DEFINITY) 1.3 mL in sodium chloride 0.9% 10 mL injection (COMPLETED) 0-10 mL, IV, INTRA-PROCEDURE ONCE, 1 dose, Starting on Thu11/02/24 at 1030, Until Thu11/02/24 at 0850, Routine 0850 (Contrast Given - Provider: Esperanza oCta RDCS) predniSONE (DELTASONE) tablet 40 mg (CANCELED) 40 mg, Oral, DAILY WITH BREAKFAST, 4 doses, First dose on Thu11/01/24 at 1045, Last dose on Thu11/04/24 at 0800, Routine 0859 (Given - Provider: J Luis Alicea RN) 0712 (Given - Provider: Page Haile RN) ranolazine ER (RANEXA) SR 12 hour tablet 500 mg 500 mg, Oral, EVERY 12 HOURS (BlD), First dose on Thu10/31/24 at 1200, Until Discontinued, Routine, Previous Med: ranolazine ER (RANEXA) 500 mg Extended Release 12 hour tablet - Orig Sig - Take 1 Tablet (500 mg) by mouth every 12 hours. 0858 (Given - Provider: J Luis Alicea RN)2104 (Given - Provider: Erwin Lovell RN) 08 (Given - Provider: Page Haile RN)2023 (Given - Provider: Monalisa Galan LPN) 0928 (Given - Provider: Carla Walters RN) sacubitriL-valsartan (ENTRESTO) 24-26 mg tablet 1 Tablet 1 Tablet, Oral, TWO TIMES DAILY, First dose on Thu10/31/24 at 1200, Until Discontinued, Routine, Previous Med: sacubitriL-valsartan (ENTRESTO) 24-26 mg Tablet - Orig Sig - Take 1 Tablet by mouth 2 times daily. 0900 (Automatically Held - Provider: Li Anderson MD)0920 (Order Unhold - Provider: James Lee MD)2103 (Given - Provider: Erwin Lovell RN) 08 (Given - Provider: Page Haile RN)2022 (Given - Provider: Monalisa Galan LPN) 0925 (Given - Provider: Carla Walters RN) sodium chloride 0.9 % flush bag 25 mL 25 mL, IV, SEE ADMIN INSTRUCTIONS, Starting on 10/30/24 at 2241, Until Thu11/04/24 at 1824, Routine sodium chloride 0.9 % flush bag 25 mL 25 mL, IV, SEE ADMIN INSTRUCTIONS, Starting on Thu10/31/24 at 1039, Until Thu11/04/24 at 1824, Routine sodium chloride flush injection 10 mL 10 mL, IV, EVERY 12 HOURS (BlD), First dose on Thu10/30/24 at 2245, Until Discontinued, Routine 0900 (Not Given - Provider: J Luis Alicea RN - Reason: Medication already given)2047 (Given - Provider: Erwin Lovell RN) 0900 (Given - Provider: Page Haile RN)2024 (Given - Provider: Monalisa Galan LPN) 0900 (Canceled Entry - Provider: Carla Walters RN) sodium chloride flush injection 10 mL 10 mL, IV, SEE ADMIN INSTRUCTIONS, Starting on Thu10/30/24 at 2241, Until Thu11/04/24 at 1824, Routine sodium chloride flush injection 10 mL 10 mL, IV, EVERY 12 HOURS, First dose on Thu10/31/24 at 0845, Until Discontinued, Routine 0845 (Not Given - Provider: J Luis Alicea RN - Reason: Medication already given)2047 (Given - Provider: Erwin Lovell RN) 0845 (Given - Provider: Page Haile RN)2023 (Given - Provider: Monalisa Galan LPN) 0845 (Canceled Entry - Provider: Carla Walters RN) sodium chloride flush injection 10 mL 10 mL, IV, TWO TIMES DAILY, First dose on Thu10/31/24 at 0900, Until Discontinued, Routine 0900 (Not Given - Provider: J Luis Alicea RN - Reason: Medication already given)2048 (Given - Provider: Erwin Lovell RN) 0900 (Given - Provider: Page Haile RN)2023 (Given - Provider: Monalisa Galan LPN) 0900 (Canceled Entry - Provider: Carla Walters RN) sodium chloride flush injection 10 mL 10 mL, IV, EVERY 12 HOURS (BlD), First dose on Thu10/31/24 at 1045, Until Discontinued, Routine 0900 (Not Given - Provider: J Luis Alicea RN - Reason: Medication already given)2047 (Given - Provider: Erwin Lovell RN) 0900 (Given - Provider: Page Haile RN)2023 (Given - Provider: Monalisa Galan LPN) 0925 (Given - Provider: Carla Walters RN) sodium chloride flush injection 10 mL 10 mL, IV, SEE ADMIN INSTRUCTIONS, Starting on Thu10/31/24 at 1039, Until Thu11/04/24 at 1824, Routine sodium chloride flush injection 5 mL 5 mL, IV, SEE ADMIN INSTRUCTIONS, Starting on Thu10/31/24 at 0833, Until Thu11/04/24 at 1824, Routine ticagrelor (BRILINTA) tablet 90 mg 90 mg, Oral, TWO TIMES DAILY, First dose on Thu10/31/24 at 2100, Until Discontinued, Routine, Previous Med: ticagrelor (Brilinta) 90 mg Tablet - Orig Sig - Take 90 mg by mouth 2 times daily. 0900 (Given - Provider: J Luis Alicea RN)210 (Given - Provider: Erwin Lovell RN) 08 (Given - Provider: Page Haile RN)2022 (Given - Provider: Monalisa Galan LPN) 09 (Given - Provider: Carla Walters, MARICARMEN) umeclidinium (INCRUSE ELLIPTA) 62.5 mcg/actuation inhaler 1 Puff 1 Puff, Inhalation, DAILY RESPIRATORY, First dose on Thu10/31/24 at 1300, Until Discontinued, Routine 0904 (Given - Provider: J Luis Alicea RN) 0720 (Given - Provider: Page Haile RN) 0713 (Given - Provider: Carla Walters, MARICARMEN) warfarin (COUMADIN) tablet 12 mg 12 mg, Oral, DAILY LATE, First dose on Thu10/31/24 at 1700, Until Discontinued, Routine, Previous Med: warfarin (COUMADIN) 6 mg tablet - Orig Sig - Take 2 Tablets (12 mg) by mouth late in the day. , Indication: TREATMENT for VTE/PE/DVT, Goal INR: 2 to 3 1239 (Held by Provider - Provider: James Lee MD - Reason: Lab results / vitals)1700 (Automatically Held - Provider: James Lee MD) 1432 (Order Unhold - Provider: James Lee MD)1756 (Given - Provider: SYLVIA Laird) warfarin daily dose reminder This is a reminder only. Nursing to place an additional order for a specific warfarin dose (daily) based on INR parameters. Dosed daily by provider When acknowledging this reminder, NURSING RESPONSIBILITY is to EITHER place an order for the appropriate dose of warfarin per protocol and day of therapy OR to call the practitioner for a warfarin order if not already placed. [facility] List 3 RE[employer] Handle according to local facility process, Routine, Starting on Thu11/03/24 at 1300 1300 (Acknowledged - Provider: Page Haile, MARICARMEN) 1300 (Acknowledged - Provider: Carla Walters, MARICARMEN) zinc OXIDE-cod liver oil (DESITIN) 40 % topical paste Topical, SEE ADMIN INSTRUCTIONS, Starting on Thu11/03/24 at 2017, Until Thu11/04/24 at 1824, Routine Continuous Medication Order 11/02/2024 11/03/2024 11/04/2024 insulin regular (HumuLIN R,NovoLIN R) 1 Units/mL in sodium chloride 0.9 % infusion (CANCELED) 0-25 Units/hr (0-25 mL/hr), IV, TITRATE, Starting on Thu11/01/24 at 2315, Until Thu11/02/24 at 0735 0059 (New Bag - Provider: Veronica Hutchinson RN - Comment: [phone])0127 (Rate Verify - Provider: Veronica Hutchinson RN)0144 (Rate Verify - Provider: Veronica Hutchinson RN)0200 (Rate Verify - Provider: Veronica Hutchinson RN)0257 (Rate Change - Provider: Veronica Hutchinson RN)0257 (Rate Verify - Provider: Veronica Hutchinson RN)0300 (Rate Verify - Provider: Veronica Hutchinson RN)0400 (Rate Verify - Provider: Veronica Hutchinson RN)0408 (Rate Change - Provider: Veronica Hutchinson RN)0408 (Rate Verify - Provider: Veronica Hutchinson RN)0500 (Rate Verify - Provider: Veronica Hutchinson RN)0612 (Rate Verify - Provider: Veronica Hutchinson RN)0723 (Rate Change - Provider: J Luis Alicea RN)0725 (Rate Verify - Provider: Erwin Lovell, MARICARMEN)0807 (Stopped - Provider: Erwin Lovell, MARICARMEN)0810 (Stopped - Provider: J Luis Alicea RN) sodium chloride 0.9 % infusion () IV, at 50 mL/hr, CONTINUOUS, Starting on Thu11/01/24 at 2300, Until Thu11/02/24 at 2259, Routine 0144 (Rate Verify - Provider: Veronica Hutchinson RN)0200 (Rate Verify - Provider: Veronica Hutchinson RN)0300 (Rate Verify - Provider: Veronica Hutchinson RN)0400 (Rate Verify - Provider: Veronica Hutchinson RN)0500 (Rate Verify - Provider: Veronica Hutchinson RN)0612 (Rate Verify - Provider: Veronica Hutchinson RN)1952 (Rate Verify - Provider: Erwin Lovell RN)204 (Paused - Provider: Erwin Lovell RN)225 (Stopped - Provider: Erwin Lovell RN - Comment: [Order ends at this time. Document the following action when infusion is complete: Stopped]) PRN Medication Order 11/02/2024 11/03/2024 11/04/2024 acetaminophen (TYLENOL) tablet 650 mg 650 mg, Oral, EVERY 6 HOURS PRN, Starting on Thu10/31/24 at 1040, Until Thu11/04/24 at 1824, Pain, Mild / Temperature, ., Routine 0226 (Refused - Provider: Alessio Duarte RN) albuterol sulfate 90 mcg/Actuation inhaler 2 Puff 2 Puff, Inhalation, EVERY 6 HOURS PRN RESPIRATORY, Starting on Thu10/31/24 at 1038, Until Thu11/04/24 at 1824, Shortness of Breath, Routine, Previous Med: Ventolin HFA 90 mcg/actuation inhaler - Orig Sig - Take 2 Puffs by inhalation every 6 hours as needed. 1327 (Given - Provider: Carla Walters RN) HYDROcodone-acetaminop hen (NORCO) 10-325 mg per tablet 1 Tablet 1 Tablet, Oral, EVERY 4 HOURS PRN, Starting on Thu10/31/24 at 1045, Until Thu11/04/24 at 1824, Pain, Moderate, Routine 0154 (Given - Provider: Veronica Hutchinson RN)0741 (Given - Provider: J Luis Alicea RN)1232 (Given - Provider: J Luis Alicea RN)1628 (Given - Provider: J Luis Alicea RN)2048 (Given - Provider: Erwin Lovell RN) 0114 (Given - Provider: Erwin Lovell RN)0521 (Given - Provider: Erwin Lovell RN)0935 (Given - Provider: Page Haile RN)1406 (Given - Provider: Nano Reese RN)1805 (Given - Provider: Brayden Mcgovern, )2229 (Given - Provider: Monalisa Galan LPN) 0138 (Given - Provider: Alessio Duarte, MARICARMEN)0451 (Given - Provider: Alessio Duarte RN)0926 (Given - Provider: Carla Walters, MARICARMEN)1328 (Given - Provider: Carla Walters, MARICARMEN) ipratropium-albuteroL (DUONEB) 0.5 mg-3 mg(2.5 mg base)/3 mL inhalation solution 3 mL 3 mL, Inhalation, EVERY 4 HOURS PRN RESPIRATORY, Starting on Thu10/31/24 at 1023, Until Thu11/04/24 at 1824, Shortness of Breath, Routine 1559 (Given - Provider: Verito Lozoya RCP) 1159 (Given - Provider: Julissa Redmond RCP) morphine 4 mg/mL injection 2 mg (CANCELED) 2 mg, IV, EVERY 4 HOURS PRN, Starting on Thu10/31/24 at 1040, Until Thu11/02/24 at 0734, Pain, Severe, Routine 0256 (Given - Provider: Veronica Hutchinson RN) morphine 4 mg/mL injection 2 mg (CANCELED) 2 mg, IV, EVERY 4 HOURS PRN, Starting on Thu11/02/24 at 1349, Until Thu11/04/24 at 0840, Pain (See admin instructions), Routine 1409 (Given - Provider: J Luis Alicea RN)1822 (Given - Provider: Bethany Brady RN)2219 (Given - Provider: Erwin Lovell RN) 0318 (Given - Provider: Erwin Lovell RN)0712 (Given - Provider: Page Haile, MARICARMEN)1102 (Given - Provider: Page Haile, MARICARMEN)1515 (Given - Provider: Page aHile RN)2320 (Given - Provider: Alessio Duarte RN) 0325 (Given - Provider: Alessio Duarte RN)0800 (Given - Provider: Carla Walters, MARICARMEN) nitroglycerin (NITROSTAT) tablet 0.4 mg 0.4 mg, Sublingual, EVERY 5 MINUTES PRN, 3 doses, Starting on Thu10/31/24 at 0809, Until Thu11/04/24 at 1824, Chest Pain, Routine polyethylene glycol (MIRALAX) packet 17 Gram 17 Gram, Oral, TWO TIMES DAILY PRN, Starting on Thu10/31/24 at 1053, Until Thu11/04/24 at 1824, Constipation, Routine 210 (Given - Provider: Erwin Lovell RN) documented in this encounter Additional Health Concerns Active Problems Noted Date Diagnosed Date Heart Failure Problem 05/12/2024 documented as of this encounter Care Teams Policy Writer Sales Relationship Specialty Start Date End Date Delta Wade MD [address] [id number] PCP - General Family Practice 03/25/24 documented as of this encounter
--- OUTSIDE RECORDS SUMMARY | 2024-11-05 16:22 | XMS_ITS | Encounter Summary ---
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 10 mL at 11/04/24 0925 [DISCONTINUED] sodium chloride flush [...] IV, see admin instructions, Aggie Rivas DO PLAN PIV Adelaida Dewitt RN documented in this encounter ED Notes * Tisha aM LPN - 11/05/2024 6:44 PM CDT Patient [...] to monitor. Comfort measures offered. * Aki Botoh Curly, DO - 11/05/2024 4:16 PM CDTAssociated Order(s): [...] Arthritis, Arthropathy, unspecified, site unspecified, Atrial flutter ([facility]), Bipolar affective disorder ([facility]), Breast cancer ([facility]) (2001), Breast mass (08/22/2010), Cervical neck pain with evidence of disc disease, Chronic hepatic failure ([facility]), Congenital absence of uterus, Congenital absence of vagina, Congenital anomaly, Congestive heart failure ([facility]), Coronary artery disease, Deep vein thrombosis (DVT) ([facility]) (2023), Depression (08/22/2010), Diabetes mellitus ([facility]) (2023), Difficult intravenous access, Dyspnea (08/15/2024), Dyspnea on exertion, Emphysema of lung (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) (2015), Neuropathy, NSTEMI (non-ST elevated myocardial infarction) ([facility]) (06/06/2023), NSTEMI (non-ST elevated myocardial infarction) ([facility]), Paroxysmal A-fib (CMS/HCC), Paroxysmal atrial tachycardia, Pneumonia due to COVID-19 virus, Polycythemia, Primary hereditary hemochromatosis (12/13/2010), Unspecified essential hypertension, and Vaginal cancer (CMS/HCC) (2019). SURGICAL: Patient has a past surgical [...] (11/05/24 1647), Temp: 98.2 ??F (36.8 ??C) (11/05/24 1647), Temp src: Temporal (11/05/242154),SpO2: 98 % (11/05/24 1647), Height: (not recorded), Weight: 105.3 kg (232 [...] interpretation normal sinus rhythm rate 97 normal WI normal QRS normal QTc there is no [...] unspecified HF chronicity, unspecified heart failure type ([facility]) atorvastatin (LIPITOR) 40 mg tablet Take 40 [...] Chronic obstructive pulmonary disease, unspecified COPD type ([facility]); Oxygen dependent TechLITE Pen Needle 29 gauge x 1/2 Needle USE directed with Victoza. naloxone (NARCAN) 4 mg/spray House, Non-Aerosol EMERGENCY USE ONLY: Administer 1 spray [...] complication, without long-term current use of insulin ([facility]) OneTouch Delica Plus Lancet 30 gauge USE TO test fasting blood glucose DAILY Blood-Glucose Meter Kit Use to test blood glucose up to TID PRN symptoms. Qty: 1 Each, Refills: 0 Comments: Pt did not like OneTouch Verio. Please supply per insurance preference. Associated Diagnoses: Type 2 diabetes mellitus without complication, without long-term current use of insulin ([facility]) LAST VS BP: (!) 142/98 (11/05/242154), Heart Rate: 100 bpm (11/05/242144), Resp: 22 (11/05/242322), Pulse: (!) 120 (11/05/242322), Temp: 98.6 ??F (37 ??C) (11/05/242154), Temp src: Temporal (11/05/242154), SpO2: 95 % (11/05/242154) CLINICAL IMPRESSION Diagnoses Diagnosis Comment Added By Time Added Chronic obstructive pulmonary disease, unspecified COPD type ([facility]) [J44.9] Aki Booth DO 11/05/2024 7:38 PM [...] Chronic obstructive pulmonary disease, unspecified COPD type ([facility]) [J44.9] Aki Booth DO 11/05/2024 7:38 PM Respiratory abnormalities [R06.9] Aki Booth DO 11/06/2024 12:08 AM documented in this encounter Miscellaneous Notes * Care Plan - Krys Joe, RN - 11/07/2024 3:00 PM CDT Patient [...] AM CDT Daily Respiratory Reassessment Note Le Diaz 59 y.o. female [id number] Daily respiratory reassessment of ordered therapy was [...] Patient had solid BM overnight per shift manager. Physician discontinued GI pathogen rule out for [...] PCR panel. * Care Plan - Bernarda Win [facility] - 11/05/2024 11:44 PM CDT Images from [...] MOUTH EVERY DAY 07/05/24 Ashley Virgen, JOANNE atorvastatin (LIPITOR) 40 mg tablet Take 40 [...] 12/29/22 Provider, Historical naloxone (NARCAN) 4 mg/spray House, Non-Aerosol EMERGENCY USE ONLY: Administer 1 spray [...] Description 11/08/2024 8:00 AM CDT Office Visit [facility] [place] [address] [place] [address] Eduardo Craven MD [address] [place] [address] 11/14/2024 3:30 PM CDT Office Visit [facility] [address] [place] [address] Jerson Salas PA [address] [place] [address] 01/12/2025 1:40 PM CDT Office Visit [facility] [address] [place] [phone] Tresa Stockton, BACK UP WORKER [address] [place] [address] 04/19/2025 10:30 AM LAB ANIMAL TECHNICIAN Office Visit [facility] [address] [place] [address] James Lee MD [address] [place] [address] Gricel Mcgovern, ANDERS [address] [place] [address] Scheduled Referrals Name Type Priority [...] Date/Time Associated Diagnosis Comments POC GLUCOSE Routine 11/07/2024 12:42 PM CDT [...] this encounter Results * (ABNORMAL) POC GLUCOSE (11/07/2024 12:42 PM CDT) [facility] GLUCOSE POC 329(H) 74 - 99 mg/dL 11/07/2024 12:42 PM CDT [facility] SPECIMEN SOURCE, GLUCOSE POC Capillary 11/07/2024 12:42 PM CDT [facility] Blood, whole 11/07/2024 12:4 2 PM CDT 11/07/2024 12:52 PM CDT Maida Blas MD POINT OF CARE TESTIN G Final Result Performing Organization Address City/[facility]/ZIP Co de Phone Number [facility] CLIA # [id number] [address] [id number] * (ABNORMAL) POC GLUCOSE (11/07/2024 7:02 AM CDT) [facility] GLUCOSE POC 236(H) 74 - 99 mg/dL 11/07/2024 7:02 AM CDT [facility] SPECIMEN SOURCE, GLUCOSE POC Capillary 11/07/2024 7:02 AM CDT [facility] Blood, whole 11/07/2024 7:02 AM CDT 11/07/2024 7:10 AM CDT us Maida Blas MD POINT OF CARE TESTIN G Final Result [facility] CLIA # [id number] [address] [id number] * (ABNORMAL) CBC WITHOUT DIFFERENTIAL (11/07/2024 4:10 AM CDT) [facility] WBC 10.2 4.8 - 10.8 K/uL 11/07/2024 4:41 AM CDT [facility] NRBCS 1(H) <1 % 11/07/2024 4:41 AM CDT [facility] RBC 3.51(L) 4.20 - 5.40 M/uL 11/07/2024 4:41 AM CDT [facility] HEMOGLOBIN 10.4(L) 12.0 - 16.0 g/dL 11/07/2024 4:41 AM CDT [facility] HEMATOCRIT 33.8(L) 36.0 - 46.0 % 11/07/2024 4:41 AM CDT [facility] MCV 96.3 84.0 - 103.0 fL 11/07/2024 4:41 AM CDT [facility] MCH 29.6 27.0 - 34.0 pg 11/07/2024 4:41 AM CDT [facility] MCHC 30.8 30.0 - 35.0 g/dL 11/07/2024 4:41 AM CDT [facility] PLATELETS 188 140 - 440 K/uL 11/07/2024 4:41 AM T [facility] MPV 10.8 8.9 - 12.8 fL 11/07/2024 4:41 AM T [facility] RDW 18.5(H) 11.0 - 14.5 % 11/07/2024 4:41 AM T [facility] RDW-STDEV 64.7(H) 37.0 - 54.0 fL 11/07/2024 4:41 AM [facility] Blood Venipuncture / Unknown 11/07/2024 4:10 AM CDT 11/07/2024 4:30 AM CDT us Nba Baig MD HEMATOLOGY ORDERABLES F inal Result [facility] CLIA # [id number] [address] [address] [place] [address] * (ABNORMAL) PROTIME-INR (11/07/2024 4:10 AM CDT) [facility] PROTIME 27.3(H) 12.7 - 14.9 Seconds 11/07/2024 4:42 AM CDT [facility] INR 2.4(H) 0.8 - 1.2 11/07/2024 4:42 AM CDT [facility] Blood Venipuncture / Unknown 11/07/2024 4:10 AM CDT 11/07/2024 4:30 AM CDT [facility] - 11/07/2024 4:42 AM CDT Expected Values for INR: DVT/PE Goal INR 2.5; range 2.0 - 3.0 Valve Replacement Tissue Goal INR 2.5; range 2.0 - 3.0 Valve Replacement Mechanical Goal INR 3.0; range 2.5 - 3.5 POST-NC Goal INR 2.5; range 2.0 - 3.0 or Goal INR 3.0; range 2.5 - 3.5 Atrial Fibrillation Goal INR 2.5; range 2.0 - 3.0 Ischemic Stroke Goal INR 2.5; range 2.0 - 3.0 Nba Baig MD HEMATOLOGY ORDERABLES F inal Result [facility] CLIA # [id number] [address] [place] [address] [place], [place] [address] * (ABNORMAL) POC GLUCOSE (11/06/2024 8:43 PM CDT) [facility] GLUCOSE POC 422(HH) 74 - 99 mg/dL 11/06/2024 8:43 PM CDT [facility] SPECIMEN SOURCE, GLUCOSE POC Capillary 11/06/2024 8:43 PM CDT [facility] COMMENT, GLU POC Alerted Nurse/MARIELLA/DR 11/06/2024 8:43 PM CDT [facility] Blood, whole 11/06/2024 8:43 PM CDT 11/06/2024 10:04 PM CDT us Maida Blsa MD POINT OF CARE TESTIN G Final Result Performing Organization Address [facility] [place]/[facility]/ZIP Co de Phone Number [facility] CLIA # [id number] [address] [address] * (ABNORMAL) POC GLUCOSE (11/06/2024 4:39 PM CDT) GLUCOSE POC 358(H) 74 - 99 mg/dL 11/06/2024 4:39 PM CDT [facility] SPECIMEN SOURCE, GLUCOSE POC Capillary 11/06/2024 4:39 PM CDT [facility] Blood, whole 11/06/2024 4:39 PM CDT 11/06/2024 4:50 PM CDT us Maida Blas MD POINT OF CARE TESTIN G Final Result Performing Organization Address [facility] [place]/[facility] de Phone Number [facility] CLIA # [id number] [address] [address] * (ABNORMAL) POC GLUCOSE (11/06/2024 11:35 AM CDT) GLUCOSE POC 294(H) 74 - 99 mg/dL 11/06/2024 11:35 AM CDT [facility] SPECIMEN SOURCE, GLUCOSE POC Capillary 11/06/2024 11:35 AM CDT [facility] Blood, whole 11/06/2024 11:3 5 AM CDT 11/06/2024 11:46 AM CDT us Maida Blas MD POINT OF CARE TESTIN G Final Result Performing Organization Address City/[facility]/ZIP Co de Phone Number [facility] CLIA # [id number] [address] [address] * (ABNORMAL) POC GLUCOSE (11/06/2024 8:54 AM CDT) [facility] GLUCOSE POC 385(H) 74 - 99 mg/dL 11/06/2024 8:54 AM CDT [facility] SPECIMEN SOURCE, GLUCOSE POC Capillary 11/06/2024 8:54 AM CDT [facility] Blood, whole 11/06/2024 8:54 AM CDT 11/06/2024 9:19 AM CDT Maida Blas MD POINT OF CARE TESTIN G Final Result [facility] CLIA # [id number] [facility] [address] [address] * (ABNORMAL) PROTIME-INR (11/06/2024 4:13 AM CDT) [facility] PROTIME 17.4(H) 12.7 - 14.9 Seconds 11/06/2024 5:19 AM CDT [facility] INR 1.4(H) 0.8 - 1.2 11/06/2024 5:19 AM CDT [facility] Blood Venipuncture / Unknown 11/06/2024 4:13 AM CDT 11/06/2024 5:08 AM CDT Narrative [facility] - 11/06/2024 5:19 AM CDT Expected Values for INR: DVT/PE Goal INR 2.5; range 2.0 - 3.0 Valve Replacement Tissue Goal INR 2.5; range 2.0 - 3.0 Valve Replacement Mechanical Goal INR 3.0; range 2.5 - 3.5 POST-NC Goal INR 2.5; range 2.0 - 3.0 or Goal INR 3.0; range 2.5 - 3.5 Atrial Fibrillation Goal INR 2.5; range 2.0 - 3.0 Ischemic Stroke Goal INR 2.5; range 2.0 - 3.0 Nba Baig MD HEMATOLOGY ORDERABLES F inal Result [facility] # [id number] [address] [address] [place] [address] * (ABNORMAL) BASIC METABOLIC PANEL (11/06/2024 4:13 AM CDT) SODIUM 137 136 - 145 mmol/L 11/06/2024 5:41 AM T [facility] POTASSIUM 4.8 3.5 - 5.1 mmol/L 11/06/2024 5:41 AM [facility] CHLORIDE 103 98 - 107 mmol/L 11/06/2024 5:41 AM T [facility] CO2 22 22 - 29 mmol/L 11/06/2024 5:41 AM T [facility] CALCIUM 9.0 8.6 - 10.0 mg/dL 11/06/2024 5:41 AM T [facility] BUN 18 6 - 20 mg/dL 11/06/2024 5:41 AM [facility] CREATININE 0.47(L) 0.51 - 0.95 mg/dL 11/06/2024 5:41 AM [facility] GLUCOSE 371(H) 74 - 99 mg/dL 11/06/2024 5:41 AM [facility] GFR >60 >=60 mL/min/1. 73 sq meter 11/06/2024 5:41 AM [facility] Comment:eGFR calculated with 2020 CKD-EPI equation. Vegetarian diet, extremely high or low muscle mass, and may affect results. Cystatin C with Glomerular Filtration Rate is a suitable alternative for these patients. ANION GAP 12 9 - 20 mmol/L 11/06/2024 5:41 AM [facility] Blood Venipuncture / Unknown 11/06/2024 4:13 AM CDT 11/06/2024 5:10 AM CDT Nba Baig MD CHEMISTRY ORDERABLES Fi nal Result [facility] CLIA # [id number] [address] [place] [address] [place] [address] * (ABNORMAL) CBC WITH DIFFERENTIAL (11/06/2024 4:13 AM CDT) WBC 12.8(H) 4.8 - 10.8 K/uL 11/06/2024 5:35 AM CDT [facility] NRBCS 1(H) <1 % 11/06/2024 5:35 AM CDT [facility] RBC 3.70(L) 4.20 - 5.40 M/uL 11/06/2024 5:35 AM CDT [facility] HEMOGLOBIN 11.0(L) 12.0 - 16.0 g/dL 11/06/2024 5:35 AM CDT [facility] HEMATOCRIT 35.4(L) 36.0 - 46.0 % 11/06/2024 5:35 AM CDT [facility] MCV 95.7 84.0 - 103.0 fL 11/06/2024 5:35 AM CDT [facility] MCH 29.7 27.0 - 34.0 pg 11/06/2024 5:35 AM CDT [facility] MCHC 31.1 30.0 - 35.0 g/dL 11/06/2024 5:35 AM CDT [facility] PLATELETS 202 140 - 440 K/uL 11/06/2024 5:35 AM CDT [facility] MPV 11.0 8.9 - 12.8 fL 11/06/2024 5:35 AM CDT [facility] RDW 18.6(H) 11.0 - 14.5 % 11/06/2024 5:35 AM [facility] RDW-STDEV 63.5(H) 37.0 - 54.0 fL 11/06/2024 5:35 AM [facility] NEUTROPHILS 85(H) 42 - 75 % 11/06/2024 5:35 AM [facility] LYMPHOCYTES 10(L) 24 - 44 % 11/06/2024 5:35 AM [facility] MONOCYTES 3 2 - 10 % 11/06/2024 5:35 AM [facility] EOSINOPHILS 0 0 - 7 % 11/06/2024 5:35 AM [facility] BASOPHILS 0 0 - 1 % 11/06/2024 5:35 AM [facility] IMMATURE GRANULOCYTES 3(H) 0 - 2 % 11/06/2024 5:35 AM [facility] NEUTROPHIL ABSOLUTE 10.87(H) 2.00 - 8.00 K/uL 11/06/2024 5:35 AM [facility] LYMPHOCYTE ABSOLUTE 1.27 1.20 - 4.00 K/uL 11/06/2024 5:35 AM [facility] MONOCYTE ABSOLUTE 0.32 0.10 - 0.60 K/uL 11/06/2024 5:35 AM [facility] EOSINOPHIL ABSOLUTE 0.00 0.00 - 0.70 K/uL 11/06/2024 5:35 AM [facility] BASOPHILS ABSOLUTE 0.04 0.00 - 0.20 K/uL 11/06/2024 5:35 AM [facility] IMMATURE GRANULOCYTES ABSOLUTE 0.33(H) 0.00 - 0.10 K/uL 11/06/2024 5:35 AM [facility] SMEAR REVIEWED: NA - Not Applicable 11/06/2024 5:35 AM [facility] Blood Venipuncture / Unknown 11/06/2024 4:13 AM CDT 11/06/2024 5:08 AM CDT us Nba Baig MD HEMATOLOGY ORDERABLES F inal Result [facility] # [id number] [address] [facility] [place] [address] * EKG 12-LEAD (11/05/2024 6:34 PM CDT) 11/05/2024 6:34 PM CDT Narrative INTERFACE SYSTEM - 11/06/2024 1:10 PM CDT [facility] [address] [place] [address] Test Date: 2024-11-05 Pat Name: LE JOE Department: 11 Room: H H Gender: Female Cafe Helper: rohit : 1965 Requested By: Order Number: [id number] Jessica VALLADARES: Echo Tapia Measurements Intervals [place] Rate: 97 P: 12 WI: 138 QRS: 42 QRSD: 82 T: -17 QT: 352 QTc: 447 Interpretive Statements Normal sinus rhythm Possible Inferior infarct, age undetermined Abnormal ECG Electronically Signed On 11-06-2024 13:10:48 CDT by Echo Tapia Procedure Note Provider, Historical - 11/06/2024 [facility] [address] [place] [address] Test Date: 2024-11-05 Pat Name: LE DIAZ Department: 11 Room: H H Gender: Female Cafe Helper: [email or web address] : 1965 Requested By: Order Number: [id number] Jessica Tapia Measurements Intervals [place] Rate: 97 P: 12 WI: 138 QRS: 42 QRSD: 82 T: -17 QT: 352 QTc: 447 Interpretive Statements Normal sinus rhythm Possible Inferior infarct, age undetermined Abnormal ECG Electronically Signed On 11-06-2024 13:10:48 CDT by Echo Tapia us Aki Booth DO ECG ORDERABLES Final R esult INTERFACE SYSTEM Refer to clinic/hospital department * (ABNORMAL) PROTIME-INR (11/05/2024 5:57 PM CDT) [facility] PROTIME 22.4(H) 12.7 - 14.9 Seconds 11/05/2024 6:16 PM CDT [facility] INR 1.9(H) 0.8 - 1.2 11/05/2024 6:16 PM CDT [facility] Blood Venipuncture / Unknown 11/05/2024 5:57 PM CDT 11/05/2024 6:02 PM CDT Narrative [facility] [employer] [facility] - 11/05/2024 6:16 PM CDT Expected Values for INR: DVT/PE Goal INR 2.5; range 2.0 - 3.0 Valve Replacement Tissue Goal INR 2.5; range 2.0 - 3.0 Valve Replacement Mechanical Goal INR 3.0; range 2.5 - 3.5 POST-NC Goal INR 2.5; range 2.0 - 3.0 or Goal INR 3.0; range 2.5 - 3.5 Atrial Fibrillation Goal INR 2.5; range 2.0 - 3.0 Ischemic Stroke Goal INR 2.5; range 2.0 - 3.0 Aki Booth DO HEMATOLOGY ORDERABLES F inal Result [facility] CLIA # [id number] [address] [place] [address] * RESPIRATORY PATHOGEN PCR PANEL (11/05/2024 5:57 PM CDT) [facility] Respiratory Pathogen PCR Panel NOT DETECTED No respiratory pathogen nucleic acids detected. 11/05/2024 7:09 PM CDT [facility] COVID-19 PCR NOT DETECTED Not Detected 11/05/2024 7:09 PM CDT [facility] Upper Respiratory ENTIRE NASOPHARYNX / Unknown Collection / Unknown 11/05/2024 5:57 PM CDT 11/05/2024 6:02 PM CDT Narrative [facility] - 11/05/2024 7:09 PM CDT The [...] DO MICROBIOLOGY - GENERAL ORDERABLES Final Result [facility] # [id number] [address] [place] [address] * XR CHEST PA OR AP 1 [...] seen. Impression: No evidence of infiltrates. us Aki Booth DO DIAGNOSTIC IMAGING ORDE RABLES Final Result * (ABNORMAL) BRAIN NATRIURETIC PEPTIDE, BNP OR PROBNP (11/05/2024 5:20 PM CDT) PROBNP, N TERMINAL 410(H) 0 - 125 pg/mL 11/05/2024 6:19 PM CDT [facility] Comment: INTERPRETIVE COMMENT based on [...] Booth DO CHEMISTRY ORDERABLES Fi nal [id number] [address] [place] [address] [place], [place] [address] * (ABNORMAL) COMPREHENSIVE METABOLIC PANEL (11/05/2024 5:20 PM CDT) Pathologist [facility] SODIUM 142 136 - 145 mmol/L 11/05/2024 6:19 PM CDT [facility] POTASSIUM 3.6 3.5 - 5.1 mmol/L 11/05/2024 6:19 PM CDT [facility] CHLORIDE 104 98 - 107 mmol/L 11/05/2024 6:19 PM CDT [facility] CO2 26 22 - 29 mmol/L 11/05/2024 6:19 PM CDT [facility] CALCIUM 8.8 8.6 - 10.0 mg/dL 11/05/2024 6:19 PM [facility] BUN 17 6 - 20 mg/dL 11/05/2024 6:19 PM [facility] CREATININE 0.69 0.51 - 0.95 mg/dL 11/05/2024 6:19 PM [facility] GLUCOSE 168(H) 74 - 99 mg/dL 11/05/2024 6:19 PM [facility] TOTAL PROTEIN 6.1(L) 6.4 - 8.3 g/dL 11/05/2024 6:19 PM [facility] ALBUMIN 3.4(L) 3.5 - 5.2 g/dL 11/05/2024 6:19 PM [facility] BILIRUBIN TOTAL 0.2 0.0 - 1.0 mg/dL 11/05/2024 6:19 PM [facility] ALKALINE PHOSPHATASE 116(H) 35 - 104 U/L 11/05/2024 6:19 PM [facility] AST 21 10 - 35 U/L 11/05/2024 6:19 PM [facility] Comment:Hemolysis present. R esult may be falsely elevated. ALT 26 <=35 U/L 11/05/2024 6:19 PM [facility] GFR >60 >=60 mL/min/1.7 3 sq meter 11/05/2024 6:19 PM [facility] Comment:eGFR calculated with 2020 CKD-EPI equation. Vegetarian diet, extremely high or low muscle mass, and may affect results. Cystatin C with Glomerular Filtration Rate is a suitable alternative for these patients. ANION GAP 12 9 - 20 mmol/L 11/05/2024 6:19 PM [facility] Blood Venipuncture / Unknown 11/05/2024 5:20 PM CDT 11/05/2024 5:36 PM CDT Aki Booth DO CHEMISTRY ORDERABLES Fi nal Result Performing Organization Address City/State/[facility] Co de Phone Number [facility] CLIA # [id number] [address] [address] [place] [address] * (ABNORMAL) CBC WITH DIFFERENTIAL (11/05/2024 5:20 PM CDT) WBC 13.4(H) 4.8 - 10.8 K/uL 11/05/2024 5:41 PM CDT [facility] NRBCS 2(H) <1 % 11/05/2024 5:41 PM CDT [facility] RBC 3.78(L) 4.20 - 5.40 M/uL 11/05/2024 5:41 PM CDT [facility] HEMOGLOBIN 11.0(L) 12.0 - 16.0 g/dL 11/05/2024 5:41 PM CDT [facility] HEMATOCRIT 36.3 36.0 - 46.0 % 11/05/2024 5:41 PM CDT [facility] MCV 96.0 84.0 - 103.0 fL 11/05/2024 5:41 PM CDT [facility] MCH 29.1 27.0 - 34.0 pg 11/05/2024 5:41 PM CDT [facility] MCHC 30.3 30.0 - 35.0 g/dL 11/05/2024 5:41 PM CDT [facility] PLATELETS 190 140 - 440 K/uL 11/05/2024 5:41 PM CDT [facility] MPV 10.4 8.9 - 12.8 fL 11/05/2024 5:41 PM CDT [facility] RDW 18.2(H) 11.0 - 14.5 % 11/05/2024 5:41 PM CDT [facility] RDW-STDEV 64.8(H) 37.0 - 54.0 fL 11/05/2024 5:41 PM CDT [facility] NEUTROPHILS 67 42 - 75 % 11/05/2024 5:41 PM CDT [facility] LYMPHOCYTES 21(L) 24 - 44 % 11/05/2024 5:41 PM CDT [facility] MONOCYTES 9 2 - 10 % 11/05/2024 5:41 PM CDT [facility] EOSINOPHILS 1 0 - 7 % 11/05/2024 5:41 PM CDT [facility] BASOPHILS 0 0 - 1 % 11/05/2024 5:41 PM CDT [facility] IMMATURE GRANULOCYTES 3(H) 0 - 2 % 11/05/2024 5:41 PM CDT [facility] NEUTROPHIL ABSOLUTE 8.96(H) 2.00 - 8.00 K/uL 11/05/2024 5:41 PM CDT [facility] LYMPHOCYTE ABSOLUTE 2.76 1.20 - 4.00 K/uL 11/05/2024 5:41 PM CDT [facility] MONOCYTE ABSOLUTE 1.13(H) 0.10 - 0.60 K/uL 11/05/2024 5:41 PM CDT [facility] EOSINOPHIL ABSOLUTE 0.09 0.00 - 0.70 K/uL 11/05/2024 5:41 PM CDT [facility] BASOPHILS ABSOLUTE 0.05 0.00 - 0.20 K/uL 11/05/2024 5:41 PM CDT [facility] IMMATURE GRANULOCYTES ABSOLUTE 0.37(H) 0.00 - 0.10 K/uL 11/05/2024 5:41 PM CDT [facility] SMEAR REVIEWED: NA - Not Applicable 11/05/2024 5:41 PM CDT [facility] Blood Venipuncture / Unknown 11/05/2024 5:20 PM CDT 11/05/2024 5:33 PM CDT us Aki Booth DO HEMATOLOGY ORDERABLES F inal Result [facility] CLIA # [id number] [address] [address] [place] [address] * Critical Care (11/05/2024 4:16 PM CDT) [...] this encounter Visit Diagnoses Diagnosis COPD exacerbation (CMS/[facility])- Primary Obstructive chronic bronchitis with exacerbation Chronic obstructive pulmonary disease, unspecified COPD type (CMS/HCC) Respiratory abnormalities Respiratory abnormality, unspecified Bipolar affective disorder (CMS/HCC) Bipolar disorder, unspecified Former smoker Personal history of tobacco use, presenting hazards to health Essential hypertension Unspecified essential hypertension Obesity Obesity, unspecified Back pain Backache, unspecified Closed compression fracture of body of L1 vertebra (CMS/HCC) Chronic anticoagulation Encounter for long-term (current) use of anticoagulants CAD (coronary atherosclerotic disease) Coronary atherosclerosis of unspecified type of vessel, [place] or graft 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) Type II or unspecified type diabetes mellitus without mention of complication, not stated as uncontrolled Acute on chronic hypoxic respiratory failure (CMS/HCC) Chronic respiratory failure with hypoxia, on home O2 therapy (CMS/HCC) History of splenectomy Other acquired absence of organ Mixed hyperlipidemia HEENA (generalized anxiety disorder) Generalized anxiety disorder History of pulmonary embolism Personal history of pulmonary embolism Centrilobular emphysema (CMS/HCC) Other emphysema Chronic pain syndrome Opioid dependence (CMS/HCC) Opioid type dependence, unspecified History of cancer [...] Puff, Inhalation, DAILY RESPIRATORY, First dose on Thu11/06/24 at 0800, Until Discontinued, Routine, Previous Med: [...] mg, IM, SEE ADMIN INSTRUCTIONS, Starting on Thu11/06/24 at 0743, Until Thu11/07/24 at 1705, Routine [...] 8 HOURS PRN, Starting on 11/05/24 at 2020, Until 11/07/24 at 1705, Anxiety, Routine, Previous [...] INSTRUCTIONS, Starting on 11/05/24 at 2209, Until 11/07/24 at 1705, Routine documented in this encounter [...] 40 mg by mouth daily at bedtime. 2305 (Given - Provider: Reina Zafar RN) 2047 [...] 2 Puffs by inhalation 2 times daily. 08 (Given - Provider: Krys Joe RN) 07 (Given - Provider: Krys Joe RN) furosemide (LASIX) tablet 80 mg 80 mg, Oral, TWO TIMES DAILY, First dose on Thu11/07/24 at 1200, Until Discontinued, Routine, Previous Med: furosemide (LASIX) 80 mg tablet - Orig Sig - Take 1 Tablet (80 mg) by mouth 2 times daily. 1243 (Given - Provider: Krys Joe RN) glucagon HCL 1 mg/mL injection 1 mg 1 mg, IM, SEE ADMIN INSTRUCTIONS, Starting on 11/06/24 at 0743, Until 11/07/24 at 1705, Routine HYDROmorphone (PF) (DILAUDID) injection 0.5 mg (COMPLETED) 0.5 mg, IV, ONE TIME ONLY, 1 dose, On 11/05/24 at 1815, Routine 1840 (Given - Provider: Tisha Ma LPN) insulin glargine-yfgn injection 10 Units 10 Units, subCUT, TWO TIMES DAILY, First dose on 11/06/24 at 0745, Until Discontinued, Routine 0855 (Given - Provider: Krys Joe RN - Comment: [phone] (Given - Provider: Мария Ventura RN) 0837 [...] - Provider: Krys Joe RN - Comment: [phone] (Given - Provider: Мария Ventura RN) insulin [...] hours as needed for Shortness of Breath. 2222 (Canceled Entry - Provider: Bernarda Win RCP)2324 (Given - Provider: Bernarda Win RCP) ipratropium-albuteroL [...] Reason: Patient asleep)2022 (Given - Provider: Bernarda Win RCP) 0200 (Canceled Entry - Provider: Krys Joe [...] See Comment) 2047 (Given - Provider: Мария Ventura, MARICARMEN) predniSONE (DELTASONE) tablet 40 mg 40 mg, Oral, DAILY WITH BREAKFAST, First dose on 11/06/24 at 0800, Until Discontinued, Routine 08 (Given - Provider: Krys Joe RN) 07 (Given - Provider: Krys Joe RN) ranolazine [...] Krys Joe RN)2047 (Given - Provider: Мария Ventura RN) 0836 (Given - Provider: Krys Joe [...] Joe RN)2100 (Not Given - Provider: Мария Ventura RN - Reason: Medication already given) 0837 (Given [...] PRN, Starting on 11/05/24 at 2230, Until 11/07/24 at 1705, Other (See Comment), to thin secretions, Routine HYDROcodone-acetaminophe n (NORCO) 10-325 mg per tablet 1 Tablet (CANCELED) 1 Tablet, Oral, EVERY 6 HOURS PRN, Starting on 11/05/24 at 2215, Until 11/07/24 at 1159, Pain (See admin instructions), Pain, Routine 0024 (Given - Provider: Reina Zafar RN)0637 (Given - Provider: Reina Zafar RN)1244 (Given - Provider: Krys Joe, MARICARMEN)1935 (Given - Provider: Мария Ventura RN) 0134 (Given - Provider: Мария Ventura RN)0733 (Given - Provider: Krys Joe RN) HYDROcodone-acetaminophe [...] Moderate, Routine 2307 (Given - Provider: Reina Zafar RN) 0340 (Given - Provider: Reina Zafar RN)0801 (Given - Provider: Krys Joe, MARICARMEN) LORazepam (ATIVAN) tablet 0.5 mg 0.5 mg, [...] documented as of this encounter Care Teams Physical Therapist Assistant Relationship Specialty Start Date End Date Delta Wade MD [address] [address] PCP - General Family Practice 03/25/24 documented as of this encounter
--- NOTE | 2024-11-07 23:04 | XRR_ITS ---
PROCEDURE INFORMATION: Exam: XR Chest Exam date and time: 11/07/2024 11:33 PM Age: 59 years old Clinical indication: Pain; Chest pressure; Prior surgery; Surgery date: 6+ months; Surgery type: C-spine fusion; Additional info: Cp TECHNIQUE: Imaging protocol: Radiologic exam of the chest. Views: 1 view. COMPARISON: CT chest abdpel w/*[id number] 10/12/2024 4:02 AM FINDINGS: Lungs: Subsegmental left base opacities. Pleural spaces: Unremarkable. No pleural effusion. No pneumothorax. Heart/Mediastinum: Unremarkable. No cardiomegaly. Bones/joints: Unremarkable. XR/XR chest 1V portable [id number] IMPRESSION: Subsegmental left lung base opacities, favored to represent atelectasis. Superimposed infection can not be excluded.
--- NOTE | 2024-11-07 23:05 | ECG_ITS ---
[facility]: 2024-[facility]07 Pat Name: Le [place] Department: Room: Gender: Female Spinning Machine Tender: : 1965 Requested By: Albaro Chan Order Number: [id number] Jessica MD: David Escalante M.D. Measurements Intervals [place] Rate: 98 P: 35 HI: 156 QRS: 42 QRSD: 86 T: -16 QT: 318 QTc: 408 Interpretive Statements SINUS RHYTHM POSSIBLE LEFT ATRIAL ENLARGEMENT [-0.1mV P-WAVE IN V1/V2] PROBABLE INFERIOR MYOCARDIAL INFARCTION , OF INDETERMINATE AGE [35 ms Q WAVE IN II/aVF] Compared to ECG 10/12/2024 02:49:52 Myocardial infarct finding now present T-wave abnormality no longer present Electronically Signed On 11-12-2024 09:14:52 CDT by David Escalante M.D. [email or web address]
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
[2024-11-07 23:06] VITALS: BP 142/75; PULSE 95; RESP 27; TEMP 36.9; O2SAT 96; BMI 37.8
--- OUTSIDE RECORDS SUMMARY | 2024-11-07 23:08 | XMS_ITS | Encounter Summary ---
Author Organization [facility] Address [address] [place] [address] Care Team Providers Care Talent Acquisition Coordinator Name Role Phone Delta Wade MD Primary Care Provider [phone] Encounter Details Date Type Department Care Team (Late Contact Info) Description 06/16/2024 Telephone [facility] [address] [address] [place] [address] Eduardo Craven MD [address] [place] [address] Social History Tobacco Use Types Packs/Day Years Used Date Smoking Tobacco: Former Cigarettes Q uit: 07/21/2022 Smokeless Tobacco: Never Alcohol Use Standard Drinks/Week Comments No 0 (1 standard drink = 0.6 oz pur e alcohol) Comments No Sex and Gender Information Value Date Recorded Sex Assigned at Not on file Legal Sex Female 11:49 PM SERVICES COORDINATOR Gender Identity Not on file Sexual [...] Description 11/08/2024 8:00 AM CDT Office Visit [facility] Ophthalmology [place] [address] [place] [address] Eduardo Craven MD [address] [place] [address] 11/14/2024 3:30 PM CDT Office Visit [facility] Neurosurgery [address] [place] [address] Jerson Salas PA [address] [place] [address] 01/12/2025 1:40 PM CDT Office Visit [facility] Cardiology [facility] [address] [place] [address] Tresa Stockton, [facility] [address] [place] [address] 04/19/2025 10:30 AM SERVICES COORDINATOR Office Visit [facility] Endocrinology [facility] [address] [place] [address] James Lee MD [address] [place] [address] Gricel Mcgovern PA [address] [place] [address] documented as of this encounter [...] 10/10/2024 10/11/2024 10/11/2024 1 :26 PM CDT R/O COVID-19 10/26/2024 10/26/2024 10/26/2024 5:48 PM CDT R/O C. diff 10/27/2024 10/27/2024 10/27/2024 1:31 AM CDT R/O Respiratory 11/05/2024 11/05/2024 11/05/2024 7 :09 PM CDT R/O GI Pathogen 11/05/2024 11/05/2024 11/06/2024 1 0:06 AM CDT documented as of this encounter Care Teams Talent Acquisition Coordinator Relationship Specialty Start Date End Date Delta Wade MD [address] [place] [address] PCP - General Family Practice 03/25/24 documented as of this encounter
--- OUTSIDE RECORDS SUMMARY | 2024-11-07 23:08 | XMS_ITS ---
Author Organization [facility] Address [address] [place] [address] Phone Care Team Providers Care Keno Writer/Runner Name Role Phone Delta Wade MD Primary Care Provider [phone] Active Problems Problem Noted Date Diagnosed Date COPD exacerbation 11/06/2024 Hepatic steatosis 11/04/2024 Mass of left lung 11/02/2024 Diabetes mellitus with hyperglycemia 11/02/2024 Essential hypertension 10/31/[address] 10/31/2024 Overview (10/31/2024): Lung mass, needs fu with pulmonology, discussed with patient 10-31-24 Pain of upper abdomen 10/28/2024 Obesity 10/27/2024 COPD with exacerbation 10/27/2024 Acute on chronic congestive heart failure 2024 Centrilobular emphysema 10/16/2024 Dark stools 10/10/2024 Acute respiratory failure with hypercapnia 09/13 Diarrhea 09/13/2024 Chest pain 08/26/2024 At risk for obstructive sleep apnea 08/25/2024 Back pain 08/18/2024 Rhinovirus infection 08/15/2024 L1 [...] 04/2024 Acute respiratory distress 07/19/2024 Macrocytosis 07/19/2024 Acute on chronic combined sy stolic and diastolic CHF (congestive heart failure) 07/18/2024 Cellulitis of right lower extremity 07/14/2024 Preoperative general physical examination 2024 Obesity (BMI 30.0-34.9) 07/12/2024 Anemia 07/12/2024 HFrEF (heart failure with reduced ejection fract ion) 07/12/2024 Right leg pain 07/04/2024 Chronic respiratory failure with hypoxia, on home O2 therapy 07/03/2024 Pneumonia of left lower lobe due to infectious o rganism 07/01/2024 Hammertoe of left foot 06/05/2024 Neuropathy 04/08/2024 Non-proliferative diabetic retinopathy, left eye 03/07/2024 Nuclear age-related cataract, both eyes 03/07/20 Vitreomacular adhesion of right eye 03/07/2024 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 03/07/2024 Atypical angina 02/19/2024 Hot flashes 08/05/2023 Snoring 08/05/2023 Daytime somnolence [...] 05/04/2023 H/O mastectomy, right 03/04/2023 Tachycardia 12/02/2022 Asthma 12/02/2022 Chronic pain syndrome 12/02/2022 [...] 06/14/2019 H/O vaginal surgery 06/14/2019 Atherosclerosis of rincon co ronary artery of rincon heart without angina pectoris 06/14/2019 Urinary incontinence [...] 72.3 51 mg/m2 (140 mg) Effective Dose 232.94 mSv 232.94 mSv 0 mSv Total DLP 18,509.12 DLP 18,509.12 DLP 0 DLP CTDIvol Max 760.99 mGy 760.99 mGy 0 mGy CTDIvol Min 58.72 mGy 58.72 mGy 0 mGy Air Kerma 495 mGy 0 mGy 495 mGy Dose Area Product (DAP) 55.2 Gy-cm2 0 Gy-cm2 55.2 Gy-cm2 Resolved Problems Problem Noted Date Diagnosed Date Resolved Date Shortness of breath 10/31/2024 11/05/19 25 Other chest pain 10/31/2024 11/04/2024 syncopal episode 10/31/2024 11/04/2024 COPD exacerbation 08/22/2024 11/04/2024 Chest pain 08/05/2024 08/09/2024 Acute on chronic respiratory failure with hypoxia and hypercapnia 07/22/2024 08/09/2024 COPD exacerbation 07/21/2024 08/09/2024 [place] 03/19/2024 07/12/2024 Coffee ground emesis 03/19/2024 025 Pneumonia due to COVID-19 virus 02/18/2024 07/12/2024 Community acquired pneumonia 02/18/2024 07/12/2024 Peripheral edema 08/05/2023 11/04/2024 Nausea and vomiting 05/31/2023 07/13/19 25 Yeast infection involving th e vagina and surrounding area 01/06/2022 12/02/2022 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
--- OUTSIDE RECORDS SUMMARY | 2024-11-07 23:08 | XMS_ITS | Encounter Summary ---
Author Organization [facility] Address [address] [place] [address] Care Team Providers Care Shell Core And Molding Supervisor Name Role Phone Delta Wade MD Primary Care Provider [phone] Reason for Visit * Reason Comments Hospital Follow Up Encounter Details Date Type Department Care Team ([facility] st Contact Info) Description 05/13/2024 Telephone [facility] Family Medicine [place] [address] [place] [address] Kay Lima, [facility] [address] [place] [address] Hospital Follow Up Social History Tobacco Use Types Packs/Day Years Used Date Smoking Tobacco: Former Cigarettes Q uit: 07/21/2022 Smokeless Tobacco: Never Alcohol Use Standard Drinks/Week Comments No 0 (1 standard drink = 0.6 oz pur e alcohol) Comments No Sex and Gender Information Value Date Recorded Sex Assigned at Not on file Legal Sex Female 11:49 PM SEISMOLOGY TEACHER Gender Identity Not on file Sexual Orientation Not on file documented as of this encounter Miscellaneous Notes * Telephone Encounter - Danyell Rashid - 05/13/2024 12:30 PM SEISMOLOGY TEACHER Called pt back. Could not leave voicemail. If patient calls back please schedule for hospital follow up appointment for the next opening spot. Can be vv if patient cannot travel to clinic. MOLOGY TEACHER * Telephone Encounter - Gypsy Gerber - 05/13/2024 12:02 PM CST Copied from [facility] #[id number]. Topic: Reschedule/Cancel Appointment/Late Arrival >> May 13, [...] of hospital discharge? 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 [place] [address] Eduardo Craven MD [address] [place] [address] 11/14/2024 3:30 PM CDT Office Visit [facility] Neurosurgery [address] [place] [address] Jerson Salas PA [address] [place] [address] 01/12/2025 1:40 PM CDT Office Visit [facility] Cardiology Heart [facility] [address] [place] [address] Tresa Stockton, TREATMENT COORDINATOR [address] [place] [address] 04/19/2025 10:30 AM SEISMOLOGY TEACHER Office Visit [facility] [address] [place] [address] James Lee MD [address] [place], [place] [id number] Gricel Mcgovern PA [address] [place] [address] documented as of this encounter [...] R/O COVID-19 05/13/2024 05/13/2024 05/14/2024 4:15 AM SEISMOLOGY TEACHER R/O Respiratory 06/30/2024 06/30/2024 06/30/2024 1 [...] documented as of this encounter Care Teams Shell Core And Molding Supervisor Relationship Specialty Start Date End Date Delta Wade MD [address] [address] PCP - General Family Practice 03/25/24 documented as of this encounter
--- OUTSIDE RECORDS SUMMARY | 2024-11-07 23:09 | XMS_ITS | CCD ---
Author Name Interface, [id number] Address [facility] [place] [address] [facility] Address [address] [place] [address] Care Team Providers Care Stock Saw Operator Name Role Phone Anika VALLADARES, Allen Unavailable Unavailable Allergies and Adverse Reactions Reason for Visit Medications Problems Social History
--- OUTSIDE RECORDS SUMMARY | 2024-11-07 23:09 | XMS_ITS | Clinical Summary ---
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 1 Each 023 Active blood sugar diagnostic StripIndication s:Type 2 diabetes mellitus without complication, without long-term current use of insulin ([facility]) Use to test blood glucose up to QID PRN symptoms. 100 Each 11 023 Active naloxone (NARCAN) 4 mg/spray [place], Non-Aerosol EMERGENCY USE ONLY: Administer 1 spray (4 mg) in one nostril one time. May repeat in alternating nostrils every 2-3 min until responsive or EMS arrives. 2 Each 3 023 Active portable oxygenIndicatio ns:Chronic obstructive pulmonary disease, unspecified COPD type ([facility]),Oxyge n dependent Face to Face completed within 30 days: yes Length of Need: 99 months By: Nasal Cannula Continuously at 3 L/min. 1 Each Active fluorouraciL (EFUDEX) 5 % Cream Active LORazepam (ATIVAN) 0.5 mg tabletIndicatio ns:Anxiety [...] Take 1 Tablet by mouth daily. Active nitroglycerin (NITROSTAT) 0.4 mg Tablet, Sublingual [...] injection 3 times daily with meals. 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 Active ipratropium-alb uteroL (DUONEB) 0.5 mg-3 mg(2.5 mg base)/3 mL Solution for Nebulization Take 3 mL by inhalation every 4 hours as needed for Shortness of Breath. 300 mL 1 Active Nebulizer & Compressor For Neb Device every 4 hours as needed for Other (See Comment) (shortness of breath). 1 Each Active empagliflozin (JARDIANCE) 10 mg tablet Take 1 Tablet (10 mg) by mouth daily in the morning. 30 Tablet Active metoprolol succinate (TOPROL XL) 25 mg Extended Release 24 hour tablet Take 1 Tablet (25 mg) by mouth daily. 30 Tablet Active sacubitriL-vals treva (ENTRESTO) 24-26 mg Tablet Take 1 Tablet by mouth 2 times daily. 60 Tablet Active HYDROcodone-miri taminophen (NORCO) 7.5-325 mg Tablet Take 1 Tablet by mouth every 8 hours as needed for Pain, Moderate or Pain, Severe. Active furosemide (LASIX) 80 mg tablet Take 1 Tablet (80 mg) by mouth 2 times daily. 60 Tablet 3 Active budesonide 160 mcg-glycopyr 9 mcg-formot 4.8 mcg/actuation HFA inhaler Take 2 Puffs by inhalation 2 times daily. 60 Each 1 025 2024 Active ranolazine ER (RANEXA) 500 mg Extended Release 12 hour tablet Take 1 Tablet (500 mg) by mouth every 12 hours. 60 Tablet 1 025 2024 Active warfarin (COUMADIN) 6 mg tablet Take 2 Tablets (12 mg) by mouth late in the day. 30 Tablet 1 Active acetaminophen (TYLENOL) 325 mg tablet Take 2 Tablets (650 mg) by mouth every 6 hours as needed for Pain, Mild / Temperature (.). Active Lantus Solostar U-100 Insulin 100 unit/mL (3 mL) solution for injection Inject 40 Units by subcutaneous injection daily at bedtime. 15 mL 1 Active methocarbamoL (ROBAXIN) 500 mg tablet Take 1 Tablet (500 mg) by mouth every 6 hours as needed for Spasm. 20 Tablet Active predniSONE (DELTASONE) 20 mg tablet Take 2 Tablets (40 mg) by mouth daily with breakfast for 3 days. 6 Tablet 025 2024 Active zinc OXIDE-cod liver oil (DESITIN) 40 % Paste Apply to affected area see administration instructions. 57 Gram Active doxycycline (MONODOX) 100 mg Capsule Take 1 Capsule (100 mg) by mouth every 12 hours for 3 days. 6 Capsule 2024 Active TechLITE Pen Needle 29 gauge x 1/2 Needle USE directed with Josie. 2024 Discontinued promethazine-de xtromethorphan (PHENERGAN-DM) 6.25-15 mg/5 mL syrup Take 10 mL by mouth every 4 hours as needed for Cough. 2024 Discontinued warfarin (COUMADIN) 10 mg tablet Take 1 Tablet by mouth daily. 2024 Discontinued amLODIPine (NORVASC) 2.5 mg tablet Take 2.5 mg by mouth late in the day. 024 2024 Discontinued tiZANidine (ZANAFLEX) 2 mg Tablet Take 2 mg by mouth every 8 hours as needed. 024 2024 Discontinued Lantus Solostar U-100 Insulin 100 unit/mL (3 mL) solution for injection Inject 25 Units by subcutaneous injection daily at bedtime. 2024 Discontinued ranolazine ER (RANEXA) 500 mg Extended Release 12 hour tablet Take 1 Tablet (500 mg) by mouth every 12 hours. 60 Tablet 1 2024 Discontinued budesonide 160 mcg-glycopyr 9 mcg-formot 4.8 mcg/actuation HFA inhaler Take 2 Puffs by inhalation 2 times daily. 60 Each 1 025 2024 Discontinued furosemide (LASIX) 40 mg tablet Take 1 Tablet (40 mg) by mouth daily. 30 Tablet 1 025 2024 Discontinued Lidocaine 4 % Adhesive Patch, Medicated Back pain 6 Patch 025 2024 Discontinued predniSONE (DELTASONE) 20 mg tablet 2 tabs po daily for 5 days 10 Tablet 2024 Discontinued(D uplicate Therapy) doxycycline hyclate (VIBRAMYCIN) 100 mg tablet Take 1 Tablet (100 mg) by mouth 2 times daily. 20 Tablet 025 2024 Discontinued predniSONE (DELTASONE) 10 mg tablet Take 10 mg by mouth see administration instructions. 4 TABS DAILY X 5 DAYS, 3 TABS DAILY X 5 DAYS, 2 DAILY FOR 5 DAYS THEN 1 DAILY FOR 5 DAYS THEN STOP 2024 Discontinued enoxaparin (LOVENOX) 100 mg/mL injection Inject 100 mg by subcutaneous injection every 12 hours. 025 2024 Discontinued furosemide (LASIX) 40 mg tablet Take 1 Tablet (40 mg) by mouth 2 times daily. 60 Tablet 3 025 2024 Discontinued furosemide (LASIX) 80 mg tablet Take 1 Tablet (80 mg) by mouth 2 times daily. 60 Tablet 3 2024 Discontinued budesonide 160 mcg-glycopyr 9 mcg-formot 4.8 mcg/actuation HFA inhaler Take 2 Puffs by inhalation 2 times daily. 60 Each 1 025 2024 Discontinued ranolazine ER (RANEXA) 500 mg Extended Release 12 hour tablet Take 1 Tablet (500 mg) by mouth every 12 hours. 60 Tablet 1 2024 Discontinued warfarin (COUMADIN) 6 mg tablet Take 2 Tablets (12 mg) by mouth late in the day. 30 Tablet 1 025 2024 Discontinued predniSONE (DELTASONE) 20 mg tablet Take 2 Tablets (40 mg) by mouth daily with breakfast for 2 days. 4 Tablet 025 2024 Discontinued predniSONE (DELTASONE) 20 mg tablet Take 2 Tablets (40 mg) by mouth daily with breakfast for 2 days. 4 Tablet 025 2024 Discontinued ticagrelor (Brilinta) 90 mg Tablet Take 90 mg by mouth 2 times daily. 025 2024 Discontinued Hospital, Clinic, or Other Facility Administered Medication Ordered Dose Route Frequency Start Date End Date Status proparacaine (OPTHAINE) 0.5 % ophthalmic solution 2 DropIndications:V itreous hemorrhage of right eye (CMS/HCC) 2 Drop Both Eyes ONE TIME ONLY 09/06/2024 5 Discontinued tropicamide (MYDRIACYL) 1 % ophthalmic solution 1 DropIndications:V itreous hemorrhage of right eye (CMS/HCC) 1 Drop Both Eyes ONE TIME ONLY 09/06/2024 5 Discontinued phenylephrine 2.5 % ophthalmic solution 1 DropIndications:V itreous hemorrhage of right eye (CMS/HCC) 1 Drop Both Eyes ONE TIME ONLY 09/06/2024 5 Discontinued fluorescein (AK-ABHI, FLUORESCITE) 500 mg/5 mL (10 %) injection 1 mLIndications:Vit reous hemorrhage of right eye (CMS/HCC) 1 mL IV ONE TIME ONLY 09/06/2024 5 Discontinued sodium chloride 0.9% vial - DILUENTIndication s:Vitreous hemorrhage of right eye (CMS/HCC) 3 mL IV ONE TIME ONLY 09/06/2024 5 Discontinued Active Problems Problem Noted Date Diagnosed Date COPD exacerbation 11/06/2024 Hepatic steatosis 11/04/2024 Mass of left lung 11/02/2024 Diabetes mellitus with hyperglycemia 11/02/2024 Essential hypertension 10/31/[address] 10/31/2024 Overview (10/31/2024): Lung mass, needs fu with pulmonology, discussed with patient 8 Pain of upper abdomen 10/28/2024 Obesity 10/27/2024 [...] 06/14/2019 H/O vaginal surgery 06/14/2019 Atherosclerosis of [place] 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 06/14/2019 Urinary incontinence [...] 08/05/2023 11/04/2024 Nausea and vomiting 05/31/2023 07/13/19 Yeast infection involving th e vagina and surrounding area 01/06/2022 12/02/2022 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 Encounters Date Type Department Care Team Description 11/05/2024 4:22 PM CDT - 11/07/2024 3:04 PM CDT Hospital Encounter [facility] 4A Cardiac [address] [place] [address] Aki Booth DO Abbas, Muhammad Khalid, MD Nagotu Kambagiri, Sharada, MD COPD exacerbation ([facility]/HCC) Discharge Disposition: Home or Self Care 10/31/2024 6:02 AM CDT - 11/04/2024 4:24 PM CDT Hospital Encounter [facility] 4B Cardiac [address] [place] [address] Aggie Rivas DO Griffin, Kristin L, MD Kuppi Reddy, Madhavi, MD Siddiqi, Talha, MD Syncope Discharge Disposition: Home or Self Care 10/29/2024 11:32 PM CDT - 10/30/2024 12:54 AM CDT Emergency [facility] Emergency Department [address] [place] [phone] Discharge Disposition: Left Against Medical Advice 10/28/2024 Telephone [facility] [address] [place] [address] Veronika Yusuf RN Anticoagulation 10/26/2024 3:29 PM CDT - 10/29/2024 12:37 PM CDT Hospital Encounter [address] [facility] [address] [place] [phone] Haven Joshi DO Abbas, MD Jony Soto Melissa Mae, MD COPD exacerbation ([facility]) Discharge Disposition: Home or Self Care 10/26/2024 Travel 10/20/2024 5:35 PM CDT - 10/20/2024 10:25 PM CDT Emergency [facility] Emergency Department [address] [place] [phone] Laron Hanson DO Beard, Courtney Elizabeth, MD Shortness of breath (Primary Dx); Bilateral upper abdominal pain Discharge Disposition: Home or Self Care 10/20/2024 Travel 10/16/2024 1:28 AM CDT - 10/19/2024 11:37 AM CDT Hospital Encounter [address] [facility] [address] [place] [phone] Slim Galan, Jasper Karimi MD Patel, Taksh, MD Acute on chronic hypoxic respiratory failure ([facility]) Discharge Disposition: Home or Self Care 10/16/2024 Travel 10/13/2024 Telephone [facility] [place] [address] [phone] Eduardo Craven MD Appoinment request 10/12/2024 Telephone [facility] Internal Medicine [place] [address] [place] [phone] Delta Wade MD Erroneous encounter-disregard 10/10/2024 3:33 AM CDT - 10/11/2024 3:29 PM CDT Hospital Encounter [facility] 4A Cardiac [address] [place] [phone] Anita López MD Bajor, Conrad Mitchell, DO Salana, Hari Krishna, MD Acute respiratory distress Discharge Disposition: Home or Self Care 10/10/2024 Travel 10/08/2024 6:07 PM CDT - 10/08/2024 10:40 PM CDT Emergency [facility] Emergency Department [address] [place] [phone] Anderson Marie DO COPD with exacerbation ([facility]) (Primary Dx) Discharge Disposition: Home or Self Care 10/08/2024 Travel 10/07/2024 Telephone [facility] [place] [address] [place] [address] Eduardo Craven MD Documentation Only 10/07/2024 Telephone [facility] Family Medicine [place] [address] [place] [phone] Ryann Burk MD Question; Patient Communication 10/04/2024 Orders Only [facility] Neurosurgery [address] [place] [address] Jerson Salas, PA Closed fracture of first lumbar vertebra, unspecified fracture morphology, initial encounter ([facility]) (Primary Dx) 10/01/2024 2:44 PM CDT - 10/03/2024 1:00 PM CDT Hospital Encounter [facility] 4A Cardiac [address] [place] [phone] Huy Ornelas MD Patel, Taksh, MD Mady, Mohamed Hamdy Ahmed Mohamed, MD Kuppi Reddy, Madhavi, MD Chest pain Discharge Disposition: Home or Self Care 09/28/2024 4:25 PM CDT - 09/28/2024 5:54 PM CDT Emergency [facility] Emergency Department [address] [place] [phone] Austin Robertson MD Montana, Robert C, MD Drug-seeking behavior (Primary Dx) Discharge Disposition: Left Against Medical Advice 09/22/2024 11:44 PM CDT - 09/23/2024 9:48 AM CDT Emergency [facility] Emergency Department [address] [place] [phone] Discharge Disposition: Left without being seen 09/22/2024 Travel 09/16/2024 11:40 PM CDT - 09/16/2024 11:41 PM CDT Emergency [facility] Emergency Department [address] [place] [phone] Discharge Disposition: Left without being seen 09/12/2024 9:13 PM CDT - 09/15/2024 12:26 PM CDT Hospital Encounter [facility] 4B Cardiac [address] [place] [phone] Robbie Yen DO Abbas, MD Esperanza Soto, MD La Perez, Michael Mathew MD COPD exacerbation (CMS/HCC) Discharge Disposition: Home or Self Care 09/10/2024 8:59 PM CDT - 09/11/2024 12:42 AM CDT Emergency [facility] Emergency Department [address] [place] [phone] Layton Barrow MD Chronic hypoxemic respiratory failure (CMS/HCC) (Primary Dx); Type 2 diabetes mellitus with hyperglycemia, with long-term current use of insulin (CMS/HCC); Pulmonary emphysema, unspecified emphysema type (CMS/HCC) Discharge Disposition: Home or Self Care 09/10/2024 12:46 PM CDT - 09/10/2024 11:59 PM CDT Hospital Encounter [facility] [address] [place] [address] Don Causey DO Discharge Disposition: Home or Self Care 09/10/2024 11:40 AM CDT - 09/10/2024 11:59 PM CDT Hospital Encounter [facility] [address] [place] [address] Don Causey DO Discharge Disposition: Home or Self Care 09/09/2024 10:42 PM CDT - 09/09/2024 10:46 PM CDT Emergency [facility] Emergency Department [address] [place] [address] Discharge Disposition: Left without being seen 09/09/2024 5:38 AM CDT - 09/09/2024 12:01 PM CDT Emergency [facility] Emergency Department [address] [place] [address] Cassius Sanderson MD Acute on chronic congestive heart failure, unspecified heart failure type ([facility]) (Primary Dx) Discharge Disposition: Home or Self Care 09/09/2024 Travel 09/01/2024 Orders Only [facility] Neuro[facility] [address] [place] [address] Jerson Salas PA Closed fracture of first lumbar vertebra, unspecified fracture morphology, initial encounter ([facility]) (Primary Dx) 08/29/2024 7:55 PM CDT - 08/30/2024 2:43 PM CDT Emergency [facility] Emergency Department [address] [place] [address] Danitza Wayne MD Mady, Mohamed Hamdy Ahmed Mohamed, MD COPD with exacerbation ([facility]) (Primary Dx) Discharge Disposition: Home or Self Care 08/23/2024 Telephone [facility] [address] [place] [phone] Veronika Yusuf RN Anticoagulation 08/22/2024 4:18 PM CDT - 08/26/2024 6:26 PM CDT Hospital Encounter [facility] 4A Cardiac [address] [place] [address] Austin Robertson MD Abbas, MD Lacie Soto Abhaya, MD COPD exacerbation ([facility]) Discharge Disposition: Home or Self Care 08/22/2024 Travel 08/20/2024 9:19 PM CDT - 08/20/2024 9:22 PM CDT Emergency [facility] Emergency Department [address] [place] [phone] Discharge Disposition: Left without being seen 08/20/2024 Travel 08/18/2024 2:20 AM CDT - 08/18/2024 3:03 PM CDT Hospital Encounter [facility] 4B Cardiac [address] [place] [address] Danny Mclean MD Gibert, MD Safia Lagunas, MD La Soto, Michael Mathew MD Back pain Discharge Disposition: Home or Self Care 08/16/2024 [facility] [address] [place] [address] Veronika Yusuf RN Anticoagulation 08/14/2024 6:00 PM CDT - 08/16/2024 1:22 PM CDT Hospital Encounter [facility] 4B Cardiac [address] [place] [address] Aki Booth, DO Baig, MD Rajesh Soto Lisa K, MD Kaur, MD Trini Closed compression fracture of body of L1 vertebra ([facility]) Discharge Disposition: Home or Self Care 08/07/2024 8:18 PM CDT - 08/07/2024 8:45 PM CDT Emergency [facility] Emergency Department [address] [place] [phone] Discharge Disposition: Left Against Medical Advice from [...] PNEUM OCOCCAL CONJUGATE VACCINE 20-VALENT (PCV20), POLYSACCHARIDE [id number] CONJUGATE, ADJUVANT 0.5 ML (PF) IM 06/05/2023,12/02/2022,12/25/2021 [...] on file 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 [place] [address] Eduardo Craven MD [address] [place] [address] 11/14/2024 3:30 PM CDT Office Visit [facility] [address] [place] [address] Jerson Salas PA [address] [place] [address] 01/12/2025 1:40 PM CDT Office Visit 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 [address] Gricel Mcgovern, ANDERS [address] [place] [address] Health Maintenance Due Date Last Done Comments [...] 2024 4, 12/02/2022, 12/25/2021, Additional history exists LDL CHOLESTEROL ANNUAL 02/18/2025 4, 06/23/2023, 02/26/2023, Additional history exists DIABETES ANNUAL RETINAL EXAM 03/31/202511/2024, 03/31/2024, 03/31/2024, Additional history exists DIABETES HBA1C Q 6 MONTHS 05/03/20252024, 07/28/2024, 02/19/2024, Additional history exists PAP SMEAR 01/06/2026 01/06/2023, 09/18/2021 CERVICAL CANCER SCREENING 01/07/2028 HPV/Cotest (21-29) 01/07/2028 01/06/2023 HPV/Cotest (30-65) 01/07/2028 01/06/2023 DTAP/TDAP/TD VACCINES (3 - T d or Tdap) 07/01/2032 07/01/2022, 03/24/2011 Goals Goal Patient Goal Type Associated Problems Recent Progress Patient-Stated? Author Heart Failure Goal Care Plan Heart Failure Problem No Latonya Anguiano LPN Medical Devices Implanted Type Area Clock Mechanic Device Identifier Shelf Expiration Date Model / Serial / Lot Dev Closure Angioseal 6fr Vip [id number] - [id number] Implanted:Qty: 1 on 03/21/2024 by Kyler Helm MD at [facility] Closure Device Right: Groin TERUMO- CARDIOVASC SYS [id number] 10/25/2024 [id number] / / [id number] 93 Imp Toe Phalinx 10 Solid Angl Sml [id number] - [id number] Implanted:Qty: 1 on 07/20/2024 by Tereso Gil DPM at [facility] Toe Left: Foot [employer] 12/29/2031 [id number] / / [id number] Procedures Procedure Name Priority Date/Time Associated Diagnosis Comments POC GLUCOSE Routine 11/07/2024 12:42 PM CDT POC GLUCOSE Routine 11/07/2024 7:02 AM CDT CBC WITHOUT DIFFERENTIAL Routine 11/07/2024 4:10 AM CDT PROTIME-INR Routine 11/07/2024 4:10 AM CDT TELEMETRY REPORT 11/07/2024 3:46 AM CDT POC GLUCOSE Routine 11/06/2024 8:43 PM CDT POC GLUCOSE Routine 11/06/2024 4:39 PM CDT POC GLUCOSE Routine 11/06/2024 11:35 AM CDT POC GLUCOSE Routine 11/06/2024 8:54 AM CDT PROTIME-INR Routine 11/06/2024 4:13 AM CDT BASIC METABOLIC PANEL Routine 11/06/2024 4:13 AM CDT CBC WITH DIFFERENTIAL Routine 11/06/2024 4:13 AM CDT RT ASSESS AND TREAT Routine 11/05/2024 10:31 PM CDT RT ASSESS AND TREAT Routine 11/05/2024 10:31 PM CDT COPD EDUCATION RT Routine 11/05/2024 10:31 PM CDT EKG 12-LEAD Stat 11/05/2024 6:34 PM CDT PROTIME-INR Stat 11/05/2024 5:57 PM CDT RESPIRATORY PATHOGEN PCR PANEL Stat 11/05/2024 5:57 PM CDT XR CHEST PA OR AP 1 VW Stat 5:48 PM CDT BRAIN NATRIURETIC PEPTIDE, BNP OR PROBNP Stat 11/05/2024 5:20 PM CDT COMPREHENSIVE METABOLIC PANEL Stat 11/05/2024 5:20 PM CDT CBC WITH DIFFERENTIAL Stat 11/05/2024 5:20 PM CDT RESPIRATORY THERAPY COMMUNICATION Stat 11/05/2024 4:57 PM CDT CRITICAL CARE Routine 11/05/2024 4:16 PM CDT POC GLUCOSE Routine 11/04/2024 2:11 PM CDT POC GLUCOSE Routine 11/04/2024 12:49 PM CDT POC GLUCOSE Routine 11/04/2024 11:28 AM CDT OT EVAL AND TREAT Routine 11/04/2024 8:4 2 AM CDT POC GLUCOSE Routine 11/04/2024 7:10 AM CDT COMPREHENSIVE METABOLIC PANEL Routine 11/04/2024 4:45 AM CDT CBC WITHOUT DIFFERENTIAL Routine 11/04/2024 4:45 AM CDT PROTIME-INR Routine 11/04/2024 4:45 AM CDT POC GLUCOSE Routine 11/03/2024 7:43 PM CDT POC GLUCOSE Routine 11/03/2024 5:54 PM CDT PROTIME-INR Routine 11/03/2024 5:04 PM CDT POC GLUCOSE Routine 11/03/2024 11:05 AM CDT OT EVAL AND TREAT Routine 11/03/2024 10:45 AM CDT COMPREHENSIVE METABOLIC PANEL Routine 11/03/2024 10:40 AM CDT CBC WITHOUT DIFFERENTIAL Routine 11/03/2024 10:40 AM CDT PROTIME-INR Routine 11/03/2024 10:40 AM CDT POC GLUCOSE [...] POC GLUCOSE Routine 11/02/2024 5:15 AM CDT COMPREHENSIVE METABOLIC PANEL Routine 11/02/2024 4:33 AM CDT CBC WITHOUT DIFFERENTIAL Routine 11/02/2024 4:33 AM CDT PROTIME-INR Routine 11/02/2024 4:33 AM CDT LACTIC ACID Stat 11/02/2024 4:33 AM CDT POC GLUCOSE Routine 11/02/2024 4:06 AM CDT POC GLUCOSE Routine 11/02/2024 2:54 AM CDT POC GLUCOSE Routine 11/02/2024 1:55 AM CDT POC GLUCOSE Routine 11/02/2024 12:53 AM CDT POC GLUCOSE Routine 11/01/2024 9:58 PM CDT LACTIC ACID Routine 11/01/2024 9:10 PM CDT BASIC METABOLIC PANEL Routine 11/01/2024 9:10 PM CDT OSMOLALITY Routine 11/01/2024 9:10 PM CDT POC GLUCOSE Routine 11/01/2024 4:35 PM CDT POC GLUCOSE Routine 11/01/2024 11:29 AM CDT US CAROTID DOPPLER Routine 11/01/2024 8: 04 AM CDT POC GLUCOSE Routine 11/01/2024 7:31 AM CDT POC GLUCOSE Routine 11/01/2024 4:29 AM CDT COMPREHENSIVE METABOLIC PANEL Routine 11/01/2024 4:02 AM CDT CBC WITHOUT DIFFERENTIAL Routine 11/01/2024 4:01 AM CDT PROTIME-INR Routine 11/01/2024 4:01 AM CDT TELEMETRY REPORT 11/01/2024 2:58 AM CDT POC GLUCOSE Routine 11/01/2024 2:49 AM CDT POC GLUCOSE Routine 10/31/2024 8:53 PM CDT TROPONIN 6 HR, 5TH GEN Timed Study 1:53 PM CDT BLOOD CULTURE Stat 10/31/2024 1:24 PM CDT BLOOD CULTURE Stat 10/31/2024 1:24 PM CDT POC GLUCOSE Stat 10/31/2024 12:45 PM CDT LACTIC ACID Stat 10/31/2024 11:49 AM CDT OT EVAL AND TREAT Stat 10/31/2024 11:47 AM CDT RT ASSESS AND TREAT Stat 10/31/2024 10:20 AM CDT CTA CHEST W AND/OR WO CONTRAST Stat 10/31/2024 9:[address] HEAD WO CONTRAST Stat 10/31/2024 9 :04 AM CDT MAGNESIUM LEVEL Stat 10/31/2024 8:07 AM CDT PROTIME-INR Stat 10/31/2024 8:07 AM CDT TROPONIN 2 HR, 5TH GEN Timed Study 8:07 AM CDT EKG 12-LEAD Stat 10/31/2024 8:03 AM CDT BLOOD GAS ARTERIAL Stat 10/31/2024 6: 38 AM CDT RT ASSESS AND TREAT Stat 10/31/2024 6 :29 AM CDT XR CHEST PA OR AP 1 VW Stat 6:18 AM CDT BRAIN NATRIURETIC PEPTIDE, BNP OR PROBNP Stat 10/31/2024 6:16 AM CDT HEMOGLOBIN A1C Stat 10/31/2024 3:08 AM CDT CBC WITH DIFFERENTIAL Stat 10/31/2024 3:08 AM CDT TROPONIN BASELINE, 5TH GEN Stat 10/31/2024 1:11 AM CDT LIPASE Stat 10/31/2024 1:11 AM CDT COMPREHENSIVE METABOLIC PANEL Stat 10/31/2024 1:11 AM CDT EKG 12-LEAD Stat 10/30/2024 10:47 PM CDT CBC WITH DIFFERENTIAL Stat 10/29/2024 9:44 PM CDT XR CHEST PA OR AP 1 VW Stat 8:25 PM CDT TROPONIN BASELINE, 5TH GEN Stat 10/29/2024 8:18 PM CDT COMPREHENSIVE METABOLIC PANEL Stat 10/29/2024 8:18 PM CDT EXTRA TUBE (URINE [place]) Stat 10/29/2024 7:55 PM CDT URINALYSIS W/REFLEX MICROSCOPIC Stat 10/29/2024 7:55 PM CDT EKG 12-LEAD Stat 10/29/2024 7:54 PM CDT POC GLUCOSE Stat 10/29/2024 7:52 PM CDT POC GLUCOSE Routine 10/29/2024 11:41 AM CDT POC GLUCOSE Routine 10/29/2024 7:06 AM CDT BASIC METABOLIC PANEL Routine 10/29/2024 1:26 AM CDT CBC WITHOUT DIFFERENTIAL Routine 10/29/2024 1:26 AM CDT PROTIME-INR Routine 10/29/2024 1:26 AM CDT POC GLUCOSE Routine 10/28/2024 11:22 PM CDT POC GLUCOSE Routine 10/28/2024 8:51 PM CDT POC GLUCOSE Routine 10/28/2024 5:06 PM CDT POC GLUCOSE Routine 10/28/2024 11:24 AM CDT US ABDOMEN LIMITED Pending Discharge 10/28/2024 10:54 AM CDT PT EVAL AND TREAT Pending Discharge 10/28/2024 9:17 AM CDT POC GLUCOSE Routine 10/28/2024 7:09 AM CDT HEPATIC FUNCTION PANEL Routine 5:37 AM CDT BASIC METABOLIC PANEL Routine 10/28/2024 5:37 AM CDT PROTIME-INR Routine 10/28/2024 5:37 AM CDT CBC WITHOUT DIFFERENTIAL Routine 10/28/2024 1:35 AM CDT POC GLUCOSE Routine 10/27/2024 8:42 PM CDT POC GLUCOSE Routine 10/27/2024 5:15 PM CDT POC GLUCOSE Routine 10/27/2024 12:09 PM CDT POC GLUCOSE Routine 10/27/2024 8:02 AM CDT PROTIME-INR Routine 10/27/2024 4:06 AM CDT BASIC METABOLIC PANEL Routine 10/27/2024 4:06 AM CDT CBC WITH DIFFERENTIAL Routine 10/27/2024 4:06 AM CDT TROPONIN 6 HR, 5TH GEN Timed Study 4:06 AM CDT RT ASSESS AND TREAT Routine 10/26/2024 10:01 PM CDT COPD EDUCATION RT Routine 10/26/2024 10:01 PM CDT BLOOD GAS VENOUS Routine 10/26/2024 5:58 PM CDT INFLUENZA A/B, RSV AND COVID-19 PCR PANEL Stat 10/26/2024 4:54 PM CDT INFLUENZA A/B, RSV AND COVID-19 PCR PANEL Stat 10/26/2024 4:54 PM CDT PROTIME-INR Stat 10/26/2024 4:54 PM CDT PTT Stat 10/26/2024 4:54 PM CDT TROPONIN 2 HR, 5TH GEN Timed Study 4:26 PM CDT TROPONIN BASELINE, 5TH GEN Stat 10/26/2024 2:04 PM CDT MAGNESIUM LEVEL Stat 10/26/2024 2:04 PM CDT BRAIN NATRIURETIC PEPTIDE, BNP OR PROBNP Stat 10/26/2024 2:04 PM CDT COMPREHENSIVE METABOLIC PANEL Stat 10/26/2024 2:04 PM CDT CBC WITH DIFFERENTIAL Stat 10/26/2024 2:04 PM CDT XR CHEST PA OR AP 1 VW Stat 12:04 PM CDT EKG 12-LEAD Stat 10/26/2024 11:[address] ABDOMEN PELVIS W CONTRAST Stat 10/20/2024 9:05 PM CDT TROPONIN BASELINE, 5TH GEN Stat 10/20/2024 7:30 PM CDT BRAIN NATRIURETIC PEPTIDE, BNP OR PROBNP Stat 10/20/2024 7:30 PM CDT COMPREHENSIVE METABOLIC PANEL Stat 10/20/2024 7:30 PM CDT CBC WITH DIFFERENTIAL Stat 10/20/2024 7:30 PM CDT XR CHEST PA OR AP 1 VW Stat 6:15 PM CDT TELEMETRY REPORT 10/20/2024 1:45 AM CDT POC GLUCOSE Routine 10/19/2024 7:35 AM CDT BASIC METABOLIC PANEL Routine 10/19/2024 4:05 AM CDT CBC WITH DIFFERENTIAL Routine 10/19/2024 4:04 AM CDT POC GLUCOSE Routine 10/19/2024 3:03 AM CDT POC GLUCOSE Routine 10/18/2024 8:47 PM CDT POC GLUCOSE Routine 10/18/2024 5:27 PM CDT POC GLUCOSE Routine 10/18/2024 11:26 AM CDT POC GLUCOSE Routine 10/18/2024 7:18 AM CDT BASIC METABOLIC PANEL Routine 10/18/2024 4:20 AM CDT CBC WITH DIFFERENTIAL Routine 10/18/2024 4:19 AM CDT POC GLUCOSE Routine 10/18/2024 2:13 AM CDT POC GLUCOSE Routine 10/17/2024 7:56 PM CDT POC GLUCOSE Routine 10/17/2024 5:17 PM CDT POC GLUCOSE Routine 10/17/2024 12:01 PM CDT CBC WITH DIFFERENTIAL Routine 10/17/2024 9:34 AM CDT BASIC METABOLIC PANEL Routine 10/17/2024 9:34 AM CDT POC GLUCOSE Routine 10/17/2024 7:39 AM CDT POC GLUCOSE Routine 10/16/2024 9:39 PM CDT POC GLUCOSE Routine 10/16/2024 5:37 PM CDT TROPONIN 6 HR, 5TH GEN Timed Study 8:50 AM CDT POC GLUCOSE Routine 10/16/2024 8:37 AM CDT POC GLUCOSE Stat 10/16/2024 7:38 AM CDT RT ASSESS AND TREAT Stat 10/16/2024 7 :35 AM CDT TROPONIN 2 HR, 5TH GEN Timed Study 4:26 AM CDT BLOOD GAS VENOUS Stat 10/16/2024 3:13 AM CDT XR CHEST PA OR AP 1 VW Stat 2:30 AM CDT TROPONIN BASELINE, 5TH GEN Stat 10/16/2024 2:14 AM CDT BRAIN NATRIURETIC PEPTIDE, BNP OR PROBNP Stat 10/16/2024 2:14 AM CDT COMPREHENSIVE METABOLIC PANEL Stat 10/16/2024 2:14 AM CDT CBC WITH DIFFERENTIAL Stat 10/16/2024 2:14 AM CDT EKG 12-LEAD Stat 10/16/2024 1:25 AM CDT TELEMETRY REPORT 10/12/2024 2:26 AM CDT GI [...] EKG 12-LEAD Stat 08/14/2024 6:23 PM CDT LIPID PANEL Routine 02/19/2024 5: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 E RATIO, RANDOM UR Routine 02/26/2023 3:01 PM 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 GLUCOSE POC 329(H) 74 - 99 mg/dL 11/07/2024 12:42 PM CDT [facility] SPECIMEN SOURCE, GLUCOSE POC Capillary 11/07/2024 12:42 PM CDT [facility] Blood, whole 11/07/2024 12:4 2 PM CDT 11/07/2024 12:52 PM CDT us Maida Blas MD POINT OF CARE TESTIN G Final Result Performing Organization Address [facility] Co de Phone Number [facility] CLIA # [id number] [address] [address] [place] [address] * (ABNORMAL) PROTIME-INR (11/07/2024 4:10 AM CDT) Only the most recent of26 resultswithin the time period is included. PROTIME 27.3(H) 12.7 - 14.9 Seconds 11/07/2024 4:42 AM CDT [facility] INR 2.4(H) 0.8 - 1.2 11/07/2024 4:42 AM CDT [facility] Blood Venipuncture / Unknown 11/07/2024 4:10 AM CDT 11/07/2024 4:30 AM CDT Narrative [facility] - 11/07/2024 4:42 AM CDT Expected Values for INR: DVT/PE Goal INR 2.5; range 2.0 - 3.0 Valve Replacement Tissue Goal INR 2.5; range 2.0 - 3.0 Valve Replacement Mechanical Goal INR 3.0; range 2.5 - 3.5 POST-NJ Goal INR 2.5; range 2.0 - 3.0 or Goal INR 3.0; range 2.5 - 3.5 Atrial Fibrillation Goal INR 2.5; range 2.0 - 3.0 Ischemic Stroke Goal INR 2.5; range 2.0 - 3.0 us Nba Baig MD HEMATOLOGY ORDERABLES F inal Result Performing Organization Address [facility]/ZIP Co de Phone Number [facility] CLIA # [id number] [address] [place], [place] [address] * (ABNORMAL) CBC WITHOUT DIFFERENTIAL (11/07/2024 4:10 AM CDT) Only the most recent of7 resultswithin the time period is included. [facility] WBC 10.2 4.8 - 10.8 K/uL 11/07/2024 4:41 AM T [facility] NRBCS 1(H) <1 % 11/07/2024 4:41 AM [facility] RBC 3.51(L) 4.20 - 5.40 M/uL 11/07/2024 4:41 AM [facility] HEMOGLOBIN 10.4(L) 12.0 - 16.0 g/dL 11/07/2024 4:41 AM [facility] HEMATOCRIT 33.8(L) 36.0 - 46.0 % 11/07/2024 4:41 AM [facility] MCV 96.3 84.0 - 103.0 fL 11/07/2024 4:41 AM T [facility] MCH 29.6 27.0 - 34.0 pg 11/07/2024 4:41 AM [facility] MCHC 30.8 30.0 - 35.0 g/dL 11/07/2024 4:41 AM [facility] PLATELETS 188 140 - 440 K/uL 11/07/2024 4:41 AM [facility] MPV 10.8 8.9 - 12.8 fL 11/07/2024 4:41 AM [facility] RDW 18.5(H) 11.0 - 14.5 % 11/07/2024 4:41 AM [facility] RDW-STDEV 64.7(H) 37.0 - 54.0 fL 11/07/2024 4:41 AM [facility] Blood Venipuncture / Unknown 11/07/2024 4:10 AM CDT 11/07/2024 4:30 AM CDT us Nba Baig MD HEMATOLOGY ORDERABLES F inal Result [facility] YAKELIN # [id number] [address] [facility] [place] [address] * TELEMETRY REPORT (11/07/2024 3:46 AM CDT) Only the most recent of8 resultswithin the time period is included. us Provider Scanning ECG ORDERABLES Final Result * (ABNORMAL) CBC WITH DIFFERENTIAL (11/06/2024 4:13 AM CDT) Only the most recent of31 resultswithin the time period is included. WBC 12.8(H) 4.8 - 10.8 K/uL 11/06/2024 5:35 AM CDT [facility] NRBCS 1(H) <1 % 11/06/2024 5:35 AM CDT [facility] RBC 3.70(L) 4.20 - 5.40 M/uL 11/06/2024 5:35 AM CDT [facility] HEMOGLOBIN 11.0(L) 12.0 - 16.0 g/dL 11/06/2024 5:35 AM CDT [facility] HEMATOCRIT 35.4(L) 36.0 - 46.0 % 11/06/2024 5:35 AM CDT [facility] MCV 95.7 84.0 - 103.0 fL 11/06/2024 5:35 AM CDT [facility] MCH 29.7 27.0 - 34.0 pg 11/06/2024 5:35 AM CDT [facility] MCHC 31.1 30.0 - 35.0 g/dL 11/06/2024 5:35 AM CDT [facility] PLATELETS 202 140 - 440 K/uL 11/06/2024 5:35 AM CDT [facility] MPV 11.0 8.9 - 12.8 fL 11/06/2024 5:35 AM [facility] RDW 18.6(H) 11.0 - 14.5 % 11/06/2024 5:35 AM [facility] RDW-STDEV 63.5(H) 37.0 - 54.0 fL 11/06/2024 5:35 AM [facility] NEUTROPHILS 85(H) 42 - 75 % 11/06/2024 5:35 AM [facility] LYMPHOCYTES 10(L) 24 - 44 % 11/06/2024 5:35 AM [facility] MONOCYTES 3 2 - 10 % 11/06/2024 5:35 AM [facility] EOSINOPHILS 0 0 - 7 % 11/06/2024 5:35 AM [facility] BASOPHILS 0 0 - 1 % 11/06/2024 5:35 AM [facility] IMMATURE GRANULOCYTES 3(H) 0 - 2 % 11/06/2024 5:35 AM [facility] NEUTROPHIL ABSOLUTE 10.87(H) 2.00 - 8.00 K/uL 11/06/2024 5:35 AM [facility] LYMPHOCYTE ABSOLUTE 1.27 1.20 - 4.00 K/uL 11/06/2024 5:35 AM [facility] MONOCYTE ABSOLUTE 0.32 0.10 - 0.60 K/uL 11/06/2024 5:35 AM [facility] EOSINOPHIL ABSOLUTE 0.00 0.00 - 0.70 K/uL 11/06/2024 5:35 AM [facility] BASOPHILS ABSOLUTE 0.04 0.00 - 0.20 K/uL 11/06/2024 5:35 AM [facility] IMMATURE GRANULOCYTES ABSOLUTE 0.33(H) 0.00 - 0.10 K/uL 11/06/2024 5:35 AM [facility] SMEAR REVIEWED: NA - Not Applicable 11/06/2024 5:35 AM [facility] Blood Venipuncture / Unknown 11/06/2024 4:13 AM CDT 11/06/2024 5:08 AM CDT Nba Baig MD HEMATOLOGY ORDERABLES F inal Result [facility] YAKELIN # [id number] [address] [place] [address] [place] [address] * (ABNORMAL) BASIC METABOLIC PANEL (11/06/2024 4:13 AM CDT) Only the most recent of16 resultswithin the time period is included. SODIUM 137 136 - 145 mmol/L 11/06/2024 5:41 AM [facility] POTASSIUM 4.8 3.5 - 5.1 mmol/L 11/06/2024 5:41 AM [facility] CHLORIDE 103 98 - 107 mmol/L 11/06/2024 5:41 AM [facility] CO2 22 22 - 29 mmol/L 11/06/2024 5:41 AM [facility] CALCIUM 9.0 8.6 - 10.0 mg/dL 11/06/2024 5:41 AM [facility] BUN 18 6 - 20 mg/dL 11/06/2024 5:41 AM [facility] CREATININE 0.47(L) 0.51 - 0.95 mg/dL 11/06/2024 5:41 AM [facility] GLUCOSE 371(H) 74 - 99 mg/dL 11/06/2024 5:41 AM [facility] GFR >60 >=60 mL/min/1. 73 sq meter 11/06/2024 5:41 AM [facility] Comment:eGFR calculated with 2020 CKD-EPI equation. Vegetarian diet, extremely high or low muscle mass, and may affect results. Cystatin C with Glomerular Filtration Rate is a suitable alternative for these patients. ANION GAP 12 9 - 20 mmol/L 11/06/2024 5:41 AM [facility] Blood Venipuncture / Unknown 11/06/2024 4:13 AM CDT 11/06/2024 5:10 AM CDT Nba Baig MD CHEMISTRY ORDERABLES Fi nal Result [facility] CLIA # [id number] [address] [place] [address] * EKG 12-LEAD (11/05/2024 6:34 PM CDT) Only the most recent of19 resultswithin the time period is included. 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1965 Requested By: Order Number: [id number] Jessica VALLADARES: Echo Tapia Measurements Intervals [place]ledge Rate: 97 P: 12 WA: 138 QRS: 42 QRSD: 82 T: -17 QT: 352 QTc: 447 Interpretive Statements Normal sinus rhythm Possible Inferior infarct, age undetermined Abnormal ECG Electronically Signed On 11-06-2024 13:10:48 CDT by Echo Tapia Procedure Note Provider, Historical - 11/06/[address] [address] Test Date: 2024-11-05 Pat Name: LE DIAZ Department: 11 Room: H H 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: Female 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1965 Requested By: Order Number: [id number] Jessica VALLADARES: Echo Tapia Measurements Intervals [place]ledge Rate: 97 P: 12 WA: 138 QRS: 42 QRSD: 82 T: -17 QT: 352 QTc: 447 Interpretive Statements Normal sinus rhythm Possible Inferior infarct, age undetermined Abnormal ECG Electronically Signed On 11-06-2024 13:10:48 CDT by Echo Tapia Aki Booth DO ECG ORDERABLES Final R esult Performing Organization Address City/[facility]/ZIP Co de Phone Number INTERFACE SYSTEM Refer to clinic/hospital department * RESPIRATORY PATHOGEN PCR PANEL (11/05/2024 5:57 PM CDT) Only the most recent of4 resultswithin the time period is included. [facility] Respiratory Pathogen PCR Panel NOT DETECTED No respiratory pathogen nucleic acids detected. 11/05/2024 7:09 PM CDT [facility] COVID-19 PCR NOT DETECTED Not Detected 11/05/2024 7:09 PM CDT [facility] Upper Respiratory ENTIRE NASOPHARYNX / Unknown Collection / Unknown 11/05/2024 5:57 PM CDT 11/05/2024 6:02 PM CDT Narrative [facility] - 11/05/2024 7:09 PM CDT The Film [...] pertussis Bordetella parapertussis Chlamydophila pneumoniae Mycoplasma pneumoniae us Aki Booth DO MICROBIOLOGY - GENERAL ORDERABLES Final Result Performing Organization Address City/[facility]/ZIP Co de Phone Number [facility] CLIA # [id number] [address] [address] [place] [address] * XR CHEST PA OR AP 1 VW (11/05/2024 5:48 PM CDT) Only the most recent of18 [...] of infiltrates. Aki Booth DO DIAGNOSTIC IMAGING ON[facility] Final Result * (ABNORMAL) BRAIN NATRIURETIC PEPTIDE, BNP OR PROBNP (11/05/2024 5:20 PM CDT) Only the most recent of12 resultswithin the time period is included. PROBNP, N TERMINAL 410(H) 0 - 125 pg/mL 11/05/2024 6:19 PM CDT [facility] Comment: INTERPRETIVE COMMENT based on diagnosis: [...] Booth DO CHEMISTRY ORDERABLES Fi nal Result [facility] YAKELIN # [id number] [address] [facility] [place] [address] * (ABNORMAL) COMPREHENSIVE METABOLIC PANEL (11/05/2024 5:20 PM CDT) Only the most recent of22 resultswithin the time period is included. [facility] SODIUM 142 136 - 145 mmol/L 11/05/2024 6:19 PM CDT [facility] POTASSIUM 3.6 3.5 - 5.1 mmol/L 11/05/2024 6:19 PM CDT [facility] CHLORIDE 104 98 - 107 mmol/L 11/05/2024 6:19 PM CDT [facility] CO2 26 22 - 29 mmol/L 11/05/2024 6:19 PM CDT [facility] CALCIUM 8.8 8.6 - 10.0 mg/dL 11/05/2024 6:19 PM CDT [facility] BUN 17 6 - 20 mg/dL 11/05/2024 6:19 PM T [facility] CREATININE 0.69 0.51 - 0.95 mg/dL 11/05/2024 6:19 PM T [facility] GLUCOSE 168(H) 74 - 99 mg/dL 11/05/2024 6:19 PM T [facility] TOTAL PROTEIN 6.1(L) 6.4 - 8.3 g/dL 11/05/2024 6:19 PM CDT [facility] ALBUMIN 3.4(L) 3.5 - 5.2 g/dL 11/05/2024 6:19 PM CDT [facility] BILIRUBIN TOTAL 0.2 0.0 - 1.0 mg/dL 11/05/2024 6:19 PM CDT [facility] ALKALINE PHOSPHATASE 116(H) 35 - 104 U/L 11/05/2024 6:19 PM CDT [facility] AST 21 10 - 35 U/L 11/05/2024 6:19 PM CDT [facility] Comment:Hemolysis present. R esult may be falsely elevated. ALT 26 <=35 U/L 11/05/2024 6:19 PM CDT [facility] GFR >60 >=60 mL/min/1.7 3 sq meter 11/05/2024 6:19 PM CDT [facility] Comment:eGFR calculated with 2020 CKD-EPI equation. Vegetarian diet, extremely high or low muscle mass, and may affect results. Cystatin C with Glomerular Filtration Rate is a suitable alternative for these patients. ANION GAP 12 9 - 20 mmol/L 11/05/2024 6:19 PM CDT [facility] Blood Venipuncture / Unknown 11/05/2024 5:20 PM CDT 11/05/2024 5:36 PM CDT Aki Booth DO CHEMISTRY ORDERABLES nal Result [facility] # [id number] [address] [place] [address] * Critical Care (11/05/2024 4:16 PM CDT) [...] PROCEDURE/MINOR SURGICA L ORDERABLES Final Result * ECHOCARDIOGRAM W/ CONTRAST AGENT (11/02/2024 9:31 AM CDT) EJECTION FRACTION 50 INTERFACE SYSTEM 11/02/2024 8:52 AM CDT Narrative INTERFACE SYSTEM - 11/02/2024 6:23 PM CDT [facility] Echocardiography Laboratory [address] [place] [address] Transthoracic Echocardiography Patient: Le Diaz Study ID: ECHO COMPLETE - Gender: Kingsley : 1965 Age: 59 Room: [facility] Study Date: 11/02/2024 Pt Status: Inpatient Study Time: 08:52:49 AM CSN #: [id number] Ordering:Danyell Dewitt Hospice Office Coordinator: [facility] Indications and History: Syncope. Risk factors: [...] avg, TDI 6 Legend: (L) and (H) robbie values outside specified reference range. [facility] are accredited with the [facility] Accreditation Commission - Echocardiography. Prepared and Electronically Authenticated Howie Sweeney MD Confirmed 11/02/2024 18:22 Procedure Note Howie Sweeney MD - 11/02/2024 [facility] Echocardiography Laboratory [address] [place] [address] Transthoracic Echocardiography Patient: Le Diaz Study ID: ECHOCOMPLETE - Gender: Kingsley : 1965 Age: 59 Room: [facility] Study Date: 11/02/2024 Pt Status: Inpatient Study Time: 08:52:49 AM CSN #: [id number] Ordering:Danyell Dewitt Hospice Office Coordinator: [facility] Indications and History: Syncope. Risk factors: [...] avg, TDI 6 Legend: (L) and (H) robbie values outside specified reference range. [facility] are accredited with theIntersocietal Accreditation Commission - Echocardiography. Prepared and Electronically Authenticated Howie Sweeney MD Confirmed 11/02/2024 18:22 us Danyell Dewitt MD US ORDERABLES Final Resul t Performing Organization Address [facility] de Phone Number INTERFACE SYSTEM Refer to clinic/hospital department * (ABNORMAL) LACTIC ACID (11/02/2024 4:33 AM CDT) Only the most recent of13 resultswithin the time period is included. LACTIC ACID 2.2(H) <=2.0 mmol/L 11/02/2024 5:12 AM CDT [facility] Blood Venipuncture / Unknown 11/02/2024 4:33 AM CDT 11/02/2024 4:43 AM CDT us Tiffanie VALENTINEP CHEMISTRY ORDERABLES Fi nal Result Performing Organization Address [facility] de Phone Number [facility] CLIA # [id number] [address] [facility] [place] [address] * (ABNORMAL) OSMOLALITY (11/01/2024 9:10 PM CDT) OSMOLALITY 324(H) 275 - 295 mOsm/kg 11/01/2024 10:03 PM CDT [facility] Blood Venipuncture / Unknown 11/01/2024 9:10 PM CDT 11/01/2024 9:30 PM CDT us Li Anderson MD CHEMISTRY ORDERABLES Jana l Result Performing Organization Address [facility] Co de Phone Number [facility] CLIA # [id number] [address] [place] [address] * US CAROTID DOPPLER (11/01/2024 8:04 AM CDT) Anatomical Region Laterality Modality Neck Ultrasound 11/01/2024 7:32 AM CDT Narrative 11/01/2024 9:00 AM CDT [facility] Noninvasive Vascular Laboratory [facility] [place] [address] Noninvasive Vascular Lab Cerebrovascular Exam Carotid Duplex Patient: Le Diaz Study ID: US CAROTID DOPPL Gender: F : 1965 Age: 59 Room: [facility] Height: 162.6cm Weight: 97kg BSA: 2.14m^2 Pt status: Inpatient Study Date: 11/01/2024 Study Time: 07:32:50 AM BSA: 2.14m^2 Ordering: Danyell Dewitt Interpreting:Lm Zimmerman Hospice Office Coordinator: Jerson Nuñez Indications: Syncope. Summary Mild plaque [...] !Proximal ICA/prox CCA!0.68 !0.53 ! + +-----+-----+ [facility] Vascular Lab is accredited with the Intersocietal Commission for the Accreditation of Vascular Laboratories (ICAVL) Prepared and Electronically Authenticated Lm Zimmerman Confirmed 11/01/2024 09:00 Procedure Note Lm Zimmerman MD - 11/01/2024 [facility] Noninvasive Vascular Laboratory [address] [place] [address] Noninvasive Vascular Lab Cerebrovascular Exam Carotid Duplex Patient: Le Diaz Study ID: US CAROTID DOPPL Gender: F : 1965 Age: 59 Room: [facility] Height: 162.6cm Weight: 97kg BSA: 2.14m^2 Pt status: Inpatient Study Date: 11/01/2024 Study Time: 07:32:50 AM BSA: 2.14m^2 Ordering: Danyell Dewitt Interpreting:Lm Zimmerman Hospice Office Coordinator: Jerson Nuñez Indications: Syncope. Summary Mild plaque is visualized in the left carotid bulb, but there is noevidence of hemodynamically significant narrowing in either carotid system.Antegrade flow is noted in both vertebral arteries. Impression: No prior study available for comparison. Study data: Carotid duplex study. Complete study and Doppler flowstudy including spectral analysis, color and hollingsworth scale imaging. Height:162.6cm. Height: 64in. Weight: 97kg. [...] !Proximal ICA/prox CCA!0.68 !0.53 ! + +-----+-----+ [facility] is accredited with theIntersocietal Commission for the Accreditation of Vascular Laboratories (ICAVL) Prepared and Electronically Authenticated Lm Zimmerman Confirmed 11/01/2024 09:00 us Danyell Dewitt MD US ORDERABLES Final Resul t * (ABNORMAL) TROPONIN 6 HR, 5TH GEN (10/31/2024 1:53 PM CDT) Only the most recent of7 resultswithin the time period is included. TROPONIN T, 6 HR 5TH GEN 24(H) <11 ng/L 10/31/2024 2:49 PM CDT [facility] DELTA 6HR TROPONIN T 0 See Interp. 10/31/2024 2:49 PM CDT [facility] Blood Venipuncture / Unknown 10/31/2024 1:53 PM CDT 10/31/2024 2:03 PM CDT Narrative [facility] - 10/31/2024 2:49 PM CDT Troponin elevated. Delta indeterminate. Delay in collection of timed specimen beyond recommended collection interval. Results must be interpreted in clinical context. Aggie Rivas DO CHEMISTRY ORDERABLES Final Resul t Performing Organization Address City/[facility]/ZIP Co de Phone Number [facility] CLIA # [id number] [address] [address] * BLOOD CULTURE (10/31/2024 1:24 PM CDT) Only the most recent of5 resultswithin the time period is included. [facility] BLOOD CULTURE No growth 11/05/2024 2:29 PM CDT [facility] Blood (Peripheral) Venipuncture / Unknown 10/31/2024 1:24 PM CDT 10/31/2024 1:29 PM CDT Aggie Rivas DO MICROBIOLOGY - GENERAL ORDERABLE S Final Result [facility] CLIA # [id number] [address] [facility] [place] [address] * CTA CHEST W AND/OR WO CONTRAST [...] identified. 5. Additional incidental findings as above. us Aggie Rivas DO CT ORDERABLES Final Result [...] No acute intracranial findings. Narrative Procedure Note Carlos Garcia, DO - 10/31/2024 IMPRESSION: Please see below. [...] grossly clear. IMPRESSION: No acute intracranial findings. us Aggie Rivas DO CT ORDERABLES Final Result * (ABNORMAL) TROPONIN 2 HR, 5TH GEN (10/31/2024 8:07 AM CDT) Only the most recent of11 resultswithin the time period is included. TROPONIN T, 2 HR 5TH GEN 26(H) <=10 ng/L 10/31/2024 8:47 AM CDT [facility] [employer] [facility] DELTA 2HR TROPONIN T 2 See Interp. 10/31/2024 8:47 AM CDT [facility] [employer] Blood Venipuncture / Unknown 10/31/2024 8:07 AM CDT 10/31/2024 8:14 AM CDT Narrative [facility] [employer] - 10/31/2024 8:47 AM CDT Troponin elevated. Delta not changing. Aggie Rivas DO CHEMISTRY ORDERABLES Final Resul t Performing Organization Address [facility] Co de Phone Number [facility] CLIA # [id number] [facility] [id number] * MAGNESIUM LEVEL (10/31/2024 8:07 AM CDT) Only the most recent of6 resultswithin the time period is included. Pathologist [facility] MAGNESIUM 2.0 1.6 - 2.6 mg/dL 10/31/2024 10:58 AM CDT [facility] Blood Venipuncture / Unknown 10/31/2024 8:07 AM CDT 10/31/2024 8:14 AM CDT Danyell Dewitt MD CHEMISTRY ORDERABLES Final Result Performing Organization Address [facility] Co de Phone Number [facility] CLIA # [id number] [facility] [address] * (ABNORMAL) BLOOD GAS ARTERIAL (10/31/2024 6:38 AM CDT) Only the most recent of4 resultswithin the time period is included. PH BLOOD POC 7.43 7.35 - 7.45 10/31/2024 6:38 AM CDT [facility] PCO2 POC 44 35 - 45 mm Hg 10/31/2024 6:38 AM CDT [facility] PO2 POC 94 80 - 105 mm Hg 10/31/2024 6:38 AM CDT [facility] HCO3 (CALC) POC 29(H) 22 - 26 mmol/L 10/31/2024 6:38 AM CDT [facility] HEMOGLOBIN POC 12.2 12.0 - 18.0 g/dL 10/31/2024 6:38 AM CDT [facility] BASE EXCESS POC 5(H) -2 - 3 mmol/L 10/31/2024 6:38 AM [facility] O2 SATURATION POC 98 95 - 98 % 10/31/2024 6:38 AM [facility] SODIUM POC 136(L) 138 - 146 mmol/L 10/31/2024 6:38 AM [facility] POTASSIUM POC 3.7 3.5 - 4.9 mmol/L 10/31/2024 6:38 AM [facility] HEMATOCRIT POC 37(L) 38 - 51 % 10/31/2024 6:38 AM [facility] PH TEMP CORRECT 7.43 7.35 - 7.45 10/31/2024 6:38 AM [facility] PCO2 TEMP CORRECT 44 35 - 45 mm Hg 10/31/2024 6:38 AM [facility] PO2 TEMP CORRECT 94 80 - 105 mm Hg 10/31/2024 6:38 AM [facility] SPECIMEN SOURCE, GASES POC Arterial 10/31/2024 6:38 AM [facility] CALCIUM IONIZED POC 5.0 4.8 - 5.2 mg/dL 10/31/2024 6:38 AM [facility] TCO2 (CALC) POC 31(H) 23 - 27 mmol/L 10/31/2024 6:38 AM [facility] LITER FLOW 4.0 L/min 10/31/2024 6:38 AM [facility] PUNC SITE POC ART PUNCT 10/31/2024 6:38 AM [facility] SOURCE OF OXYGEN POC Cannula 10/31/2024 6:38 AM [facility] Blood, arterial 10/31/2024 6 :38 AM CDT 10/31/2024 6:40 AM CDT us Aggie Rivas DO ABG ORDERABLES Final Result [facility] CLIA # [id number] [address] [address] * (ABNORMAL) HEMOGLOBIN A1C (10/31/2024 3:08 AM CDT) Pathologist [facility] HEMOGLOBIN A1C 10.4(H) <=5.6 % 11/02/2024 10:13 AM CDT [facility] EST. AVG GLUCOSE, A1C 252 mg/dL 11/02/2024 10:13 AM CDT [facility] Blood Venipuncture / Unknown 10/31/2024 3:08 AM CDT 10/31/2024 3:13 AM CDT Narrative [facility] - 11/02/2024 10:13 AM CDT HGB A1C INTERPRETATION NORMAL: <5.7% PRE-DIABETES: 5.7 - 6.4% DIABETES: 6.5% OR GREATER Danyell Dewitt MD CHEMISTRY ORDERABLES Final Result [facility] CLIA # [id number] [address] [place] [address] * (ABNORMAL) TROPONIN BASELINE, 5TH GEN (10/31/2024 1:11 AM CDT) Only the most recent of14 resultswithin the time period is included. Pathologist [facility] TROPONIN T, BASELINE 5TH GEN 24(H) <=10 ng/L 10/31/2024 6:24 AM CDT [facility] Blood Venipuncture / Unknown 10/31/2024 1:11 AM CDT 10/31/2024 1:22 AM CDT Narrative [facility] - 10/31/2024 6:24 AM CDT Troponin elevated. us Aggie Rivas DO CHEMISTRY ORDERABLES Final Resul t [id number] [address] [place], [place] [address] * LIPASE (10/31/2024 1:11 AM CDT) Only the most recent of3 resultswithin the time period is included. LIPASE 21 13 - 60 U/L 10/31/2024 6:26 AM CDT [facility] Blood Venipuncture / Unknown 10/31/2024 1:11 AM CDT 10/31/2024 1:22 AM CDT Aggie Rivas DO CHEMISTRY ORDERABLES Final Resul t Performing Organization Address City/[facility] Co de Phone Number [facility] CLIA # [id number] [address] [facility] [place] [address] * EXTRA TUBE (URINE [place]) (10/29/2024 7:55 PM CDT) Only the most recent of2 resultswithin the time period is included. Urine URINE SPECIMEN OBTAINED BY CLEAN CATCH PROCEDURE / Unknown Collection / Unknown 10/29/2024 7:55 PM CDT 10/29/2024 8:11 PM CDT Rico Bray NP URINE ORDERABLES Final Result Performing Organization Address City/[facility]/ZIP Co de Phone Number [facility] CLIA # [id number] [address] [place] [address] * (ABNORMAL) URINALYSIS WITH REFLEX MICROSCOPIC (10/29/2024 7:55 PM CDT) Only the most recent of2 resultswithin the time period is included. COLOR UA Pale Yellow Pale to Dark Yellow 10/29/2024 8:28 PM CDT [facility] CLARITY UA Clear Clear 10/29/2024 8:28 PM CDT [facility] SPECIFIC GRAVITY UA 1.029 1.003 - 1.035 10/29/2024 8:28 PM CDT [facility] PH UA 6.0 5.0 - 8.0 10/29/2024 8:28 PM CDT [facility] LEUKOCYTE ESTERASE UA Negative Negative 10/29/2024 8:28 PM CDT [facility] NITRITE UA Positive(A) Negative 10/29/2024 8:28 PM CDT [facility] PROTEIN UA Negative Negative 10/29/2024 8:28 PM CDT [facility] GLUCOSE UA 4+(A) Negative 10/29/2024 8:28 PM CDT [facility] KETONES UA Negative Negative 10/29/2024 8:28 PM CDT [facility] UROBILINOGEN UA <2.0 <2.0 mg/dL 8:28 PM CDT [facility] BILIRUBIN UA Negative Negative 10/29/2024 8:28 PM CDT [facility] BLOOD UA Negative Negative 10/29/2024 8:28 PM CDT [facility] WBC UA 3-5(A) 0 - 2 /hpf 10/29/2024 8:28 PM CDT [facility] RBC UA 0-2 0 - 2 /hpf 10/29/2024 8:28 PM CDT [facility] BACTERIA UA 1+(A) Negative /hpf 10/29/2024 8:28 PM CDT [facility] Urine URINE SPECIMEN OBTAINED BY CLEAN CATCH PROCEDURE /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
--- OUTSIDE RECORDS SUMMARY | 2024-11-07 23:10 | XMS_ITS | Patient Health Record ---
Author Organization [facility] Address [address] [place] [address] Care Team Providers Care Child Psychology Teacher Name Role Phone ( [facility] ), PHYSICIAN NOT IDENTIFIED Primary Care Provider Unavailable Dominguez Mckay Unavailable [phone] Kyler Martin Unavailable [phone] Allergies Allergen (clinical drug ingredient) Drug/Non Drug [...] Female Encounters Encounter Location Date Provider Diagnosis [facility] [address] [place] [address] 06/08/20[address]ade [address] [place] [address] [address] [place] [address] 09/28/2024 Dominguez Mckay Plan Of Treatment No Information Insurance Providers Payer Name Payer Address Payer Phone Subscriber Number Group Number Insured Name Patient Relationship to Insured Coverage Start Date Coverage End Date Medicaid Dental [address] [place] [address] [phone] [id number] Le Barnhart Self - patient is the insured Medicaid [address] [place] [address] [phone] [id number] Le Barnhart Self - patient is the insured Medical (General) History Medical History History ICD Code heart murmer diabetes emphysema cancer chemotherapy high bp radiation treatment
--- OUTSIDE RECORDS SUMMARY | 2024-11-07 23:10 | XMS_ITS | Patient Health Record ---
Author Organization [facility] Address [address] [place] [address] Care Team Providers Care Appraisal Technician Name Role Phone Delta Wade Primary Care Provider UnavailJose Cruz Tomas Unavailable [phone] Gregorio Montes Unavailable [phone] Masoud Bello Unavailable [phone] Acacia Gaines Unavailable [phone] Hannah Rai Unavailable [phone] Allergies Allergen (clinical drug ingredient) Drug/Non Drug Allergy documented on EMR Reaction Allergy Type Onset Date Status Compazine Unknown Drug Allergy Active ketorolac Ketorolac Unknown Drug Allergy Active Results Component Value Reference Range Notes Prothrombin Time 26278 Reviewed date:05/16/2024 05:08:19 PM Interpretation: Performing Lab: Notes/Report: trop 2nd@ 3510 @ 0021 3510 @ 0021 ProTime 10.8 9.1-11.9 SEC Normal Range: 9.1-11.9 INR 1.02 .90-1.20 Therapeutic Range: 2.0-3.0 Therapaeutic Range for heart valve replacement: 2.5-3.50 Partial Thromboplastin Time 12177 Reviewed date:05/16/2024 05:08:19 PM Interpretation: Performing Lab: Notes/Report: trop 2nd@ 3510 @ 0021 3510 @ 0021 PTT 27.1 22.6-31.8 SEC Therapeutic Range: 60-100. Critical Value Starting at > 100. Echo Complete EC-[id number] Reviewed date:11/30/2023 12:41:13 PM Interpretation: Performing Lab: Notes/Report: Cardiopulmonary Services Name: GIANFRANCO DIAZ Study Date: 11/27/2023 : 1965 Patient Location: [facility] Age: 58 yrs Gender: Female Height: 64 [...] Nimesh Ochoa Performed By: Alexandra Herrera RCS Echo Complete [id number] Reviewed date:11/30/2023 12:41:13 PM Interpretation: Performing Lab: Notes/Report: [id number]&org=iSite NM HB Scan w/ejection fracti on-92154 Reviewed date:01/05/2024 04:37:06 PM Interpretation: Performing Lab: Notes/Report: See Below For Report NM HB Scan w/ejection fraction 2407 @ 2313 Read See Below For Report NM HB Scan w/ejection fracti on-16831 Reviewed date:01/05/2024 04:36:45 PM Interpretation: Performing Lab: Notes/Report: fcd=[id number]&org=iSite zzzHeart Cath Lt poss PTCA Reviewed date:05/16/2024 05:08:19 PM Interpretation: Performing Lab: Notes/Report: obq=[id number]&org=iSite zzzHeart Cath Lt poss PTCA Reviewed date:11/30/2023 12:40:58 PM Interpretation: Performing Lab: Notes/Report: See Below For Report This report was dictated outside of the [employer] system. 3523 @ 0100 Read See Below For Report zzzHeart Cath Lt poss PTCA Reviewed date:11/30/2023 12:41:13 PM Interpretation: Performing Lab: Notes/Report: omp=[id number]&org=iSite zzzHeart Cath Lt poss PTCA Reviewed date:05/16/2024 05:08:19 PM Interpretation: Performing Lab: Notes/Report: See Below For Report This report was dictated outside of the Gen[employer] system. trop 2nd@ 205 3510 @ 0021 [...] Cath Lt poss PTCA Schedule Confirmation Reviewed date:07/13/2024 07:16:00 PM Interpretation: Performing Lab: Notes/Report: CT Chest ION Endoluminal Reason For Referral Reason COPD; 06/07: 1 wk pe r Eula 06/07: Left Message SCHEDULED 06/20 @ 2:10 PM Diagnosis 1 Chronic obstructive pulmonary disease, unspecified (J44.9) Referring Provider First Name ER Referring Provider Last Name [facility] Referring Provider Speciality Emergency Medicine Referred Organization [facility] Referred Provider Jose Cruz Landry Referred Address [address] [place] [address] [address],[place],[address], Referred Provider Specialty Pulmonary Di seases General [...] Date Status Comme nts Influenza (whole), CPT 25358 Inactive Unknown 01/04/2024 Administered Social History Tobacco [...] W/U Status Risk Notes Problem Tobacco user (522695842) Nicotine dependence, cigarettes, in remission (F17.211) Active confirmed Problem Ischemic cardiomyopathy (227006113) Ischemic cardiomyopathy (I25.5) Active confirmed Problem Chronic obstructive pulmonary disease (96863503) Chronic obstructive pulmonary disease, unspecified (J44.9) Active confirmed Problem Gastro-esophageal reflux disease without esophagitis (422115387) Gastro-esophageal reflux disease without esophagitis (K21.9) Active confirmed Problem C-reactive protein abnormal (276789664) Elevated C-reactive protein (CRP) (R79.82) Active confirmed Problem Solitary pulmonary nodule (769313033) Solitary pulmonary nodule (R91.1) Active confirmed Problem Long-term current use of anticoagulant (995981930) technician terminal and repeater (current) use of anticoagulants (Z79.01) Active confirmed Problem Atherosclerotic heart disease of [place] coronary artery without angina pectoris (301459452342036) Arteriosclerosis of coronary artery (I25.10) Active confirmed Problem History of placement of stent for coronary artery disease (situation) (037958053) H/O heart artery stent (Z95.5) Active confirmed Problem Long-term current use of anticoagulant (490387375) Anticoagulated (Z79.01) Active confirmed Problem Angina (579510649) Atheroscleros is of [place] coronary artery of [place] heart with angina pectoris (I25.119) Active confirmed Problem Acute non-ST segment elevation myocardial infarction (142256272) Non-ST elevated myocardial infarction (I21.4) Active confirmed Problem History of pulmonary embolus (037639802) Hx of pulmonary embolus (Z86.711) Active confirmed Problem Coronary stent patent (049881302) Coronary stent patent (Z95.5) Active confirmed Problem Chronic respiratory failure (75714848) Chronic hypoxic respiratory failure (J96.11) Active confirmed [...] Date Provider Diagnosis [facility] [address] [place] [address] 06/20/2024 Jose Cruz Landry Solitary pulmonary nodule R91.1 ; Chronic hypoxic respiratory failure J96.11 ; Nicotine dependence, cigarettes, in remission F17.211 and Shortness of breath R06.02 [facility] [address] [place] [address] 02/17/2024 Gregorio Montes [facility] [place] [address] [place] [address] 06/06/2024 Masoud Bello Other fracture of unspecified lumbar vertebra, initial encounter for closed fracture S32.008A [facility] [address] [place] [address] [place] [address] 06/30/2024 Jose Cruz Landry Assessments Encounter Date [...] remission (ICD-10 - F17.211) Patient smoked a usuk-qid-ymw for 45 years. She has been abstinent [...] Test Test Name Order Date Lumbosacral Spine AP/Lat-23529 PFT with FRC: (NO TGV) 06/20/2024 CT Chest ION Endoluminal-64127 5 Insurance Providers Payer Name Payer Address Payer Phone Subscriber Number Group Number Insured Name Patient Relationship to Insured Coverage Start Date Coverage End Date [place] [address] [place] [address] [id number] GIANFRANCO DIAZ Self - patient is the [...]
--- OUTSIDE RECORDS SUMMARY | 2024-11-07 23:10 | XMS_ITS | CCD ---
Author Name Interface, [employer] Address [address] [place] [address] [facility] Address [address] [place] [address] Care Team Providers Care Can Filling Room Sweeper Name Role Phone Anika VALLADARES, Allen Unavailable [...] 1.0 TABLET(S) BID PRN 015 active 015 Quetiapine Oral PO 1.0 TABLET(S) bid 015 active 015 Metoprolol Oral (Tartrate) PO 25.0 MG BID 015 active 015 Potassium Chloride Oral ER Cap PO 1.0 CAPSULE(S), SUSTAINED ACTION daily 015 active 015 Oxycodone-Aceta minophen Oral 5 mg-325 mg PO 1.0 TABLET(S) Q12H PRN pain 015 active Problems Diagnosis Status Date of Diagnosis Resolution Date Hemochromatosis (disorder) Active Social History Date Name Value Sex Female
[2024-11-07 23:41] LABS: Hematocrit 34.9 % (36-47); Hemoglobin 10.60 g/dL (11.27-16.99); Mean Corpuscular HGB Conc 30.4 g/dL (30-55); Mean Corpuscular Hemoglobin 29.7 pg (27-33); Mean Corpuscular Volume 97.8 fl (85-98); Nucleated Red Blood Cells % 1.9 %; Platelet Count 200 10^3/cmm (157-399); Red Blood Count 3.57 10^6/uL (3.85-5.65); White Blood Count 10.80 10^3/uL (3.29-11.43)
[2024-11-07 23:45] VITALS: BP 127/69; PULSE 99; RESP 20; O2SAT 98
[2024-11-07 23:59] LABS: Troponin(5th) Baseline 19 ng/L (0-10)
[2024-11-08 00:13] LABS: Blood Urea Nitrogen 29 mg/dL (6-20); Calcium 9.0 mg/dL (8.5-10.5); Carbon Dioxide 24 mmol/L (22-29); Chloride 99 mmol/L (98-107); Creatinine Clr Calc Pharmacy 86.9423; Glucose 391 mg/dL (65-115); NT Pro B Type Natriuretic Pept 405 pg/mL (0-125); Osmolality Calculated 308 mOsm/kg (285-295); Sodium 138 mmol/L (136-145)
[2024-11-08 00:16] VITALS: BP 130/107; PULSE 96; O2SAT 99
[2024-11-08 00:16] LABS: Anion Gap 19.3 (5-19); Potassium 4.3 mmol/L (3.5-5.1)
== END 2024-11-08 00:17 | disposition home or self-care (01) ==
PROVIDERS: Emergency Provider Emergency Medicine; PCP Family Medicine
DX: R07.9 Chest pain, unspecified (principal); R06.02 Shortness of breath; G89.29 Other chronic pain; Z79.4 Long term (current) use of insulin; Z79.01 Long term (current) use of anticoagulants; Z79.85 Long-term (current) use of injectable non-insulin antidiabetic drugs; Z87.891 Personal history of nicotine dependence; I25.10 Atherosclerotic heart disease of native coronary artery without angina pectoris; J44.9 Chronic obstructive pulmonary disease, unspecified; I10 Essential (primary) hypertension
CPT/HCPCS: 71045; 80048; 83880; 84484; 85025; 93005; 99285

== ENCOUNTER 2024-11-13 01:09 | Emergency (ER) | payer MEDICAID, SELFPAY ==
--- OUTSIDE RECORDS SUMMARY | 2020-06-27 10:30 | XMS_ITS | Continuity of Care Document ---
Author Organization [facility] Address [address] [place] [address] Phone Care Team Providers Care Plastics Process Hand Name Role Phone Unavailable Unavailable Unavailable Allergies, [...] - Active Procedures Procedure Date OFFICE/OUTPATIENT VISIT, [facility] Advance Directives Directive Yes / No Effective Date File Name No Information Encounters Encounter Description Practice Location Reason(s) For Visit Diagnoses Date Provider Providers Copied on Encounter OFFICE/OUTPA TIENT VISIT, [facility], [address], [place], [place], [address] , [place] tel: [phone] [facility] follow up [...] party ID Authoriza dioni(s) Medicaid - Medical [id number] Social History Type Description Quantity Date Captured [...] her vagina and is being managed at [facility]. Patient has HTN, hip pain, and COPD.Patient [...] her vagina and is being managed at [facility]. Patient has HTN, hip pain, and COPD.Patient [...]
--- OUTSIDE RECORDS SUMMARY | 2024-07-19 03:00 | XMS_ITS ---
Author Organization [facility] Address [address] [place] [address] Care Team Providers Care Freight Elevator Erector Name Role Phone Delta Wade Primary Care Provider Jose Cruz Harvey [phone] REASON FOR VISIT [phone] Encounters Encounter Location Date Provider Diagnosis [facility] [address] [place] [address] [place] [address] 07/19/2024 Jose Cruz Forde Plan Of Treatment No Information Progress Notes * GIANFRANCO DIAZDOB: 6 (59 yo F)Acc No.[id number]:07/19/2024 Pulmonary Function Test Patient: Jahaira GIANFRANCO HANNA Provider: Abdirahman Forde MD :1965 A ge:59 Y S ex:Female Date:07/19/2024 Address:[address] [place], [place] [phone] Pcp:Delta Wade Subjective: * Chief Complaints: * 6 [id number] Billing Information: * Procedure Codes: * Electronic signature of Natasha Forde MD on 11/13/2024 at 01:17 AM CDT Sign off status: Pending * Provider: Abdirahman Forde MD Date: 07/19/2024 Generated for Mani contreras/Moshe/eTransmitting on: 11/13/2024 01:17 AM CDT
--- OUTSIDE RECORDS SUMMARY | 2024-07-19 05:10 | XMS_ITS ---
Author Organization [facility] Address [address] [place] [address] Care Team Providers Care Oven Equipment Repairer Name Role Phone Delta Wade Primary Care Provider Jose Cruz Harvey [phone] REASON FOR VISIT abnormal chest CT Medications [...] Active Encounters Encounter Location Date Provider Diagnosis [facility] [address] [place] [address] [place] [address] 07/19/2024 Jose Cruz Forde Solitary pulmonary nodule [...] remission (ICD-10 - F17.211) Patient smoked a tyzt-jvk-nmk for 45 years. She has been abstinent [...] cigaret taiwo, in remission Patient smoked a qmtn-gmr-irv for 45 yea rs. She has been [...] ION 07/08/24 but was hospitalized twice at [facility] and unable to complete her pre-surgical [...] DIAZ, GIANFRANCO PageDOB: 6 (59 yo F)Acc No.[id number]:07/19/2024 Progress Notes Patient: GIANFRANCO GARCIA Provider: Abdirahman Forde MD :1965 A ge:59 Y S ex:Female Date:07/19/2024 Address:[address] [place], [place] [phone] Pcp:Delta Wade Subjective: * Chief Complaints: * [...] ION 07/08/24 but was hospitalized twice at [facility] and unable to complete her pre-surgical testing. ION rescheduled for 07/22/24 -ION CT. * ROS: Juliette cain of systems [facility] has been reviewed and scanned [...] 1 TABLET BY MOUTH EVERY DAY Oral Kmh-OoeswuXKCSGbpchsd-Gnmfrpcjamzeb 5-325 MG Tablet TAKE 1 TABLET BY [...] cigarettes, in remission Notes: Patient smoked a fpkp-mwm-vjh for 45 years. She has been abstinent [...] of Natasha Forde MD on 11/13/2024 at 01:16 AM CDT Sign off status: Pending * Provider: Abdirahman Forde MD Date: 07/19/2024 Generated for Mani contreras/Moshe/Adrianitting on: 0 11/13/2024 01:16 AM CDT
--- OUTSIDE RECORDS SUMMARY | 2024-07-22 05:00 | XMS_ITS ---
Author Organization [facility] Address [address] [facility] [place] [address] Care Team Providers Care Mechanical Service Specialist Name Role Phone Delta Wade Primary Care Provider Jose Cruz Harvey [phone] Encounters Encounter Location Date Provider Diagnosis [facility] [address] [place] [address] [place] [address] 07/22/2024 Jose Cruz Forde Plan Of Treatment No Information Progress Notes * GIANFRANCO DIAZDOB: [birth year] (59 yo F)Acc No.[id number]:07/22/2024 Patient: Jahaira HANNA GIANFRANCO Page Provider: Abdirahman Forde MD :1965 A ge:59 Y S ex:Female Date:07/22/2024 Address:[address] [place], [place] [phone] Pcp:Delta Wade * Electronic signature of Natasha Forde MD on 11/13/2024 at 01:18 AM CDT Sign off status: Pending * Provider: Abdirahman Forde MD Date: 07/22/2024 Generated for Printi ng/Faxing/eTransmitting on: 11/13/2024 01:18 AM CDT
--- OUTSIDE RECORDS SUMMARY | 2024-08-23 05:00 | XMS_ITS ---
Author Organization [facility] Address [address] [place] [phone] Care Team Providers Care Keymodule Assembly Machine Tender Name Role Phone ( [facility] ), PHYSICIAN NOT IDENTIFIED Primary Care Provider Unavailable Dominguez Mckay Unavailable [phone] REASON FOR VISIT TA - Filling Social History Sex Assigned At : Social History Observation Description Sex Assigned At Female Encounters Encounter Location Date Provider Diagnosis [address] [place] [address] [facility] Clinic [address] [place] [phone] 08/23/2024 Dominguez Mckay Plan Of Treatment No Information Progress Notes * DIAZ, ZhangaDOB:1965 (59 yo F)Acc No.[id number]:08/23/2024 Patient: Le Colindres Provider: Jahaira Mckay DDS :1965 A ge:59 Y S ex:Female Date:08/23/2024 Address:[address] [place], [place] [phone] Pcp:PHYSICIAN NOT IDENTIFIED ( [facility] ) Subjective: * Chief Complaints: * T A - Filling Billing Information: * Procedure Codes: * Electronic signature of Jayda Mckay DDS on 11/13/2024 at 01:15 AM CDT Sign off status: Pending * Provider: Jahaira Mckay DDS Date: 08/23/2024 Generated for Printi ng/Faxing/eTransmitting on: 11/13/2024 01:15 AM CDT
--- OUTSIDE RECORDS SUMMARY | 2024-09-07 03:30 | XMS_ITS ---
Author Organization [facility] Address [address] [place] [phone] Care Team Providers Care Public Health Aide Name Role Phone ( [facility] ), PHYSICIAN NOT IDENTIFIED Primary Care Provider Unavailable Dominguez Mckay Unavailable [phone] REASON FOR VISIT TA causing alot of [place]-pt wants filling done- told pt it was a limited not restore appt Social History Sex Assigned At : Social History Observation Description Sex Assigned At Female Encounters Encounter Location Date Provider Diagnosis [address] [place] [address] Dental Clinic [address] [place] [phone] 09/07/2024 Dominguez Mckay Plan Of Treatment No Information Progress Notes * Zhang DIAZIvettB:1965 (59 yo F)Acc No.[id number]:09/07/2024 Patient: Le Colindres Provider: Jahaira Mckay DDS :1965 A ge:59 Y S ex:Female Date:09/07/2024 Address:[address] [place], [place] [phone] Pcp:PHYSICIAN NOT IDENTIFIED ( [facility] ) Subjective: * Chief Complaints: * T A causing alot of [place]-pt wants filling done- told pt it was a limited not restore appt Billing Information: * Procedure Codes: * Electronic signature of Jayda Mckay DDS on 11/13/2024 at 01:15 AM CDT Sign off status: Pending * Provider: Jahaira Mckay DDS Date: 0 09/07/2024 Generated for Mani contreras/Moshe/Adrianitting on: 0 11/13/2024 01:15 AM CDT
--- OUTSIDE RECORDS SUMMARY | 2024-11-05 16:22 | XMS_ITS | Encounter Summary ---
Author Organization [facility] Address [address] [place] [address] Care Team Providers Care Tanning Solution Maker Name Role Phone Delta Wade MD Primary Care Provider [phone] Reason for Referral * Eval and Treat - Open Specialty Diagnoses / Procedures Referred By Contac t Referred To Contact Diagnoses Chronic obstructive pulmonary disease, unspecified COPD type (CMS/HCC) Procedures SC OFFICE/OUTPATIENT ESTABLISHED MOD MDM 30 MIN SC OFFICE/OUTPATIENT NEW MODERATE MDM 45 MINUTES Maida Yang MD [address] [place] [address] Phone: tel: fax: [facility] Pre-Registration [place] CALL TO MAKE APPOINTMENT ONLY [address] [place] [address] Phone: tel: fax: Referral ID Status Reason Start Date Expiration Date Visits Re quested Visits Authorized [id number] Open 11/07/2024 11/07/2025 1 1 * Eval and Treat (Routine) - Closed Specialty Diagnoses / Procedures Referred By Contac t Referred To Contact Diagnoses Chronic obstructive pulmonary disease, unspecified COPD type (CMS/HCC) Procedures SC OFFICE/OUTPATIENT ESTABLISHED MOD MDM 30 MIN SC OFFICE/OUTPATIENT NEW MODERATE MDM 45 MINUTES Maida Yang MD [address] [place] [address] Phone: tel: fax: Referral ID Status Reason Start Date Expiration Date Visits Re quested Visits Authorized [id number] Closed 11/07/2024 11/07/2025 1 1 Reason for Visit * Reason Comments Shortness of Breath COPD exacerbation. * Auth/Cert (Routine) Specialty Diagnoses / Procedures Referred By Marcelle t Referred To Contact Emergency Medicine [facility] Emergency Department [address] [place] [address] Phone: tel: fax: Referral ID Status Reason Start Date Expiration Date Visits Re quested Visits Authorized [id number] 1 1 Encounter Details Date Type Department Care Team (Latest Contact Info) Description 11/05/2024 4:22 PM CDT - 11/07/2024 3:04 PM CDT Hospital Encounter [facility] 4A Cardiac [address] [place] [address] Aki Booth, [address] [place] [address] [place] [address] [place] [id number] Maida Yang MD [address] [place] [address] COPD exacerbation ([facility]/HCC) Discharge Disposition: Home or Self Care Social [...] How often do you attend chur or orthodox services? More than 4 times per year [...] No 06/13/2019 Feeling Safe Answer Date Recorded Do you worry about feeling s afe and happy with the people in your life? No 10/17/2024 Food Insecurity Answer Date Recorded Do you find you are eating l ess than you should because you can t pay for food? No 10/17/2024 Transportation Needs Answer Date Record ed Have you gone without health care because you didn t have a way to get there? 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 No 2024 Housing Stability Answer Date Recorded Do you worry you won t have a steady place to sleep or struggle to pay rent or mortgage? No 10/17/2024 Utility Needs Answer Date Recorded Do you have difficulty payin g for utility costs (electric, water or gas bills)? No 10/17/2024 Medication Needs Answer Date Recorded Have you skipped taking medi cation due to cost or worry you can t afford new medications? No 10/17/2024 Feeling Safe Answer Date Recorded Are you in a relationship wi th someone who hurts you emotionally and/or physically? 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 Gender Identity Not on file Sexual Orientation Not on file documented as of this encounter Last Filed Vital Signs Vital Sign Reading Time Taken Comments Blood Pressure 115/80 11/07/2024 12:40 PM CDT Pulse 68 11/07/2024 12:40 PM CDT Temperature 36.2 C (97.1 F) 11/07/2024 12:02 PM CDT Respiratory Rate 22 11/07/2024 12:0 2 PM CDT Oxygen Saturation 96% 11/07/2024 12: 02 PM CDT Inhaled Oxygen Concentration - - Weight 105.3 kg (232 lb 2.3 oz) 11/07/2024 2:00 AM CDT Height 163.8 cm (5' 4.5 ) 11/06/2024 4:14 AM CDT Body Mass Index 39.23 11/06/2024 4:14 AM CDT documented in this encounter Discharge Summaries * Maida Yang MD - 11/07/2024 2:09 PM CDT [facility] Hospitalist- Discharge Summary Date of admission: 11/05/2024 Date of discharge: 11/07/2024 Discharge disposition: home. Discharge Condition: stable Primary Discharge Diagnosis: COPD exacerbation (CMS/HCC) Other Active medical issues also addressed during this admission: Active Hospital Problems Diagnosis COPD exacerbation (CMS/HCC) Mass of left lung Essential hypertension Obesity Centrilobular emphysema (CMS/HCC) Back pain Closed compression fracture of body of L1 vertebra (CMS/HCC) Chronic anticoagulation CAD (coronary atherosclerotic disease) 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) Acute on chronic hypoxic respiratory failure (CMS/HCC) Anemia Chronic respiratory failure with hypoxia, on home O2 therapy (CMS/HCC) History of pulmonary embolism History of splenectomy HEENA (generalized anxiety disorder) Chronic pain syndrome Opioid dependence (CMS/HCC) History of cancer of vagina History of breast cancer Mixed hyperlipidemia Former smoker Bipolar affective disorder (CMS/HCC) Resolved Hospital Problems No resolved problems to display. HOSPITAL COURSE: Please see H and P for full details on admission, symptoms and initial care. 59 y/o female with HTN, HLD, GERD, COPD on 3-4 L nasal cannula oxygen at home, CAD s/p coronary stent placement, CHF, HEENA/bipolar disorder, insulin-dependent diabetes mellitus, history of breast C s/p mastectomy, history of PE on anticoagulation, chronic pain syndrome, history of splenectomy, obesity and former tobacco use admitted for COPD exacerbation . On antibiotics and steroids. Back to baseline . Pulmonary consulted for LLL opacity since [address] . Outpatient follow up in 1 week . D/c home with outpatient PCP follow up MEDICATION CHANGES: See below CONSULTANTS: Pulmonary - Dr. Miles FOLLOW UP: Patient was instructed to follow up with Delta Wade MD , in 3-5 days FOLLOW UP CONSULTANTS: With Pulmonary in 1 weeks Follow up labs- INR in 2-3 days for PCP DISCHARGE MEDICATIONS: Medication List START taking these medications doxycycline 100 mg Capsule Commonly known as: MONODOX Take 1 Capsule (100 mg) by mouth every 12 hours for 3 days. Signed by: Dr. Severo Blas Quantity: 6 Capsule Refills: 0 empagliflozin 10 mg tablet Commonly known as: JARDIANCE Take 1 Tablet (10 mg) by mouth daily in the morning. Signed by: Dr. Pio Anderson Quantity: 30 Tablet Refills: 0 furosemide 80 mg tablet Commonly known as: LASIX Take 1 Tablet (80 mg) by mouth 2 times daily. Signed by: Dr. Steven Fairchild Quantity: 60 Tablet Refills: 3 potassium CHLORIDE 10 mEq Extended Release tablet Commonly known as: KLOR-CON Take 1 Tablet by mouth daily. Refills: 0 predniSONE 20 mg tablet Commonly known as: DELTASONE Take 2 Tablets (40 mg) by mouth daily with breakfast for 3 days. Start taking on: November 08, 2024 Signed by: Dr. Severo Blas Quantity: 6 Tablet Refills: 0 zinc OXIDE-cod liver oil 40 % Paste Commonly known as: DESITIN Apply to affected area see administration instructions. Signed by: Dr. Severo Blas Quantity: 57 Gram Refills: 0 CONTINUE taking these medications acetaminophen 325 mg tablet Commonly known as: TYLENOL Take 2 Tablets (650 mg) by mouth every 6 hours as needed for Pain, Mild / Temperature (.). Signed by: Dr. Ofelia Lee Refills: 0 aspirin 81 mg Tablet, Chewable [...] Myron Burk Quantity: 1 Each Refills: 0 jfdmbcuwnl-virahlninkzhej-tzfqwsfjcp 160-9-4.8 mcg/actuation HFA Aerosol Inhaler Commonly known [...] mL Refills: 1 Generic drug: insulin glargine levalbuterol 1.25 mg/3 [...] Juliette Camarillo Quantity: 20 Tablet Refills: 0 methocarbamoL 500 mg tablet Commonly known as: ROBAXIN Take 1 Tablet (500 mg) by mouth every 6 hours as needed for Spasm. Signed by: Dr. Ofelia Lee Quantity: 20 Tablet Refills: 0 metoprolol succinate 25 mg Extended Release 24 hour tablet Commonly known as: TOPROL XL Take 1 Tablet (25 mg) by mouth daily. Signed by: Dr. Pio Anderson Quantity: 30 Tablet Refills: 0 naloxone 4 mg/spray Rougon, Non-Aerosol Commonly known as: NARCAN EMERGENCY USE [...] Pio Anderson Quantity: 60 Tablet Refills: 0 triamcinolone acetonide 0.1 % Ointment [...] Tablet Refills: 1 STOP taking these medications Brilinta 90 mg Tablet Generic drug: ticagrelor TechLITE Pen Needle 29 gauge x 1/2 Needle Generic drug: Insulin Warren (Disposable) Where to Get Your Medications These medications were sent to [facility]/pharmacy #[id number] - [place], [place] - [address] [facility] [address] [facility] [address], [facility] [address] Hours: M-F [id number] Sat [id number] Sun closed doxycycline 100 mg Capsule predniSONE 20 mg tablet zinc OXIDE-cod liver oil 40 % Paste DIET: Diabetic Diet, Low fat, Low cholesterol, and Low sodium. ACTIVITY LEVEL: activity as tolerated. DISCHARGE EXAM: BP 115/80 (BP Location: Right arm, Patient Position (BP): Sitting) Pulse 68 Temp 97.1 ??F (36.2??C) (Temporal) Resp 22 Ht 5' 4.5 (1.638 m) Wt 105.3 kg (232 lb 2.3 oz) SpO2 96% BMI 39.23 kg/m?? Last documented weight: Weight: 105.3 kg (232 lb 2.3 oz) (11/07/24 0200) General: alert, in no distress Neurologic: Grossly normal HEENT: atraumatic, Normocephalic, without obvious abnormality Lungs: clear to auscultation bilaterally, normal respiratory effort Heart: normal rate and regular rhythm, S1 and S2 normal Abdomen:soft,non tender. Bowel sounds present Extremities: intact distal pulses, moves all extremities equally Skin: Warm and dry CODE STATUS during this hospitalization: Full Code Total time spent on discharge services today including examining and educating the patient and available family members, writing prescriptions and reviewing the discharge medication list, documentingthis discharge summary and coordinating outpatient care and follow up required 35 minutes. It has been a privilege to participate in this patient's care. Maida Blas MD 11/07/2024 2:09 PM documented in this encounter Discharge Instructions * Discharge Instructions* Guillaume Vidal RN - 11/07/2024 11:23 AM CDT Thank you for participating in your [...] symptoms each time their heart failure worsens. Important steps you can take to be healthy Follow a low salt diet (less than mg daily). Do not add any salt to your food. Fluid should be restricted to ml per day. Take your medications as instructed Try to stay active. Rest when tired. If you are a SMOKER or use TOBACCO products, you are advised to QUIT! Heart failure zones give you an easy [...] up 2 pounds in one day or 9-hh-8-pound gradual weight gain over a week. You [...] chest pain that will not go away. MEDICAL DISCHARGE RECORD DIET: heart healthy ACTIVITY: Your activity level is: increase activity as tolerated and no smoking. If you smoke you are advised to quit. Ask your health care provider for advice if you need assistance to stop smoking. Avoid second-hand smoke exposure and do not let people smoke in your home. SIGNS AND SYMPTOMS TO REPORT: Contact your health care provider if you experience any of the following symptoms: any numbness or tingling, increased dizziness or lightheadedness, increase in pain, increase in redness, swelling, or warmth of incision site, persistent bleeding or drainage, shortness of breath or difficulty breathing, swelling in your hands, feet, ankles, or abdomen, or unable to keep food or fluids down. STOP SMOKING AND/OR DO NOT ALLOW ANYONE TO SMOKE IN YOUR HOUSE OR CAR. If you need help to stop smoking, call or the Health Information Team at [phone] or [phone]. FOLLOW-UP APPOINTMENT: Follow up with PCP in one week. Follow up with pulmonology. Thank you for allowing us to care for you during your hospital stay. Please feel free to call us with any questions you may have after you leave. We strive to provide excellent service. You may receive a phone call asking you to participate in a survey regarding your stay at the hospital. We hope you will share your experiences with us and let us know if we have met this standard of excellence. We greatly value your feedback and look forward to hearing from you. [facility], Staff [phone] * Attachments The following attachments cannot be sent through Care Everywhere. * COPD ([place]) * Diabetes Diet Meal Planning: General Info ([place]) * Doxycycline ([place]) * Empagliflozin ([place]) * Furosemide ([place]) * Potassium ([place]) documented in this encounter Medications at Time of Discharge zinc OXIDE-cod liver oil (DESITIN) 40 % Paste Apply to affected area see administration instructions. 57 Gram 5 acetaminophen (TYLENOL) 325 mg tablet Take 2 Tablets (650 mg) by mouth every 6 hours as needed for Pain, Mild / Temperature (.). 5 Lantus Solostar U-100 Insulin 100 unit/mL (3 mL) solution for injection Inject 40 Units by subcutaneous injection daily at bedtime. 15 mL 1 5 methocarbamoL (ROBAXIN) 500 mg tablet Take 1 Tablet (500 mg) by mouth every 6 hours as needed for Spasm. 20 Tablet 5 budesonide 160 mcg-glycopyr 9 mcg-formot 4.8 mcg/actuation HFA inhaler Take 2 Puffs by inhalation 2 times daily. 60 Each 1 5 12/29/19 25 ranolazine ER (RANEXA) 500 mg Extended Release 12 hour tablet Take 1 Tablet (500 mg) by mouth every 12 hours. 60 Tablet 1 5 12/29/19 25 warfarin (COUMADIN) 6 mg tablet Take 2 Tablets (12 mg) by mouth late in the day. 30 Tablet 1 5 furosemide (LASIX) 80 mg tablet Take 1 Tablet (80 mg) by mouth 2 times daily. 60 Tablet 3 5 HYDROcodone-aceta minophen (NORCO) 7.5-325 mg Tablet Take [...] Comment) (shortness of breath). 1 Each 5 levalbuterol (XOPENEX) 1.25 mg/3 mL Solution [...] injection 3 times daily with meals. 5 oxygen home delivery Home Oxygen Concentrator [...] Take 1 Tablet by mouth daily. 5 nitroglycerin (NITROSTAT) 0.4 mg Tablet, Sublingual Place 0.4 mg under tongue. 5 OLANZapine (ZyPREXA) 10 mg tablet Take 10 mg by mouth daily at bedtime. 5 aspirin (CARTER CHEWABLE) 81 mg Tablet, Chewable Take 81 mg by mouth daily. LORazepam (ATIVAN) 0.5 mg tabletIndications :Anxiety state Take 1 Tablet (0.5 mg) by mouth every 8 hours as needed for Anxiety. 20 Tablet 5 fluorouraciL (EFUDEX) 5 % Cream 4 portable oxygenIndications :Chronic obstructive pulmonary disease, unspecified COPD type ([facility]),Oxygen dependent Face to Face completed within 30 days: yes Length of Need: 99 months By: Nasal Cannula Continuously at 3 L/min. 1 Each 4 naloxone (NARCAN) 4 mg/spray Rougon, Non-Aerosol EMERGENCY USE ONLY: Administer 1 spray (4 mg) in one nostril one time. May repeat in alternating nostrils every 2-3 min until responsive or EMS arrives. 2 Each 3 3 blood sugar diagnostic StripIndications: Type 2 diabetes mellitus without complication, without long-term current use of insulin ([facility]) Use to test blood glucose up to QID PRN symptoms. 100 Each 11 3 OneTouch Delica Plus Lancet 30 gauge USE TO test fasting blood glucose DAILY 3 Blood-Glucose Meter KitIndications:Ty pe 2 diabetes mellitus without complication, without long-term current use of insulin ([facility]) Use to test blood glucose up to TID PRN symptoms. 1 Each 3 doxycycline (MONODOX) 100 mg Capsule Take 1 Capsule (100 mg) by mouth every 12 hours for 3 days. 6 Capsule 5 11/11/19 25 predniSONE (DELTASONE) 20 mg tablet Take 2 Tablets (40 mg) by mouth daily with breakfast for 3 days. 6 Tablet 5 11/11/19 25 documented as of this encounter Progress Notes * Maida Yang MD - 11/07/2024 11:59 AM CDT [facility] Hospitalist/Internal Medicine Progress note LOS: LOS: 0 days HOSPITAL COURSE SUMMARY: 59 y/o female with HTN, HLD, GERD, COPD on 3-4 L nasal cannula oxygen at home, CAD s/p coronary stent placement, CHF, HEENA/bipolar disorder, insulin-dependent diabetes mellitus, history of breast C s/p mastectomy, history of PE on anticoagulation, chronic pain syndrome, history of splenectomy, obesity and former tobacco use admitted for COPD exacerbation 11/07- consulted pulmonary SUBJECTIVE: Dyspnea and cough better . No significant sputum. No fever/chills OBJECTIVE: Temp (24hrs), Av.6 ??F (36.4 ??C), Min:97.3 ??F (36.3 ??C), Max:97.9 ??F (36.6 ??C) BP (!) 156/91 (BP Location: Right arm, Patient Position (BP): Supine) Pulse 84 Temp 97.3 ??F (36.3 ??C) (Temporal) Resp 21 Ht 5' 4.5 (1.638 m) Wt 105.3 kg (232 lb 2.3 oz) SpO2 96% BMI 39.23 kg/m?? Intake/Output Summary (Last 24 hours) at 11/07/2024 1159 Last data filed at 11/07/2024 1100 Gross per 24 hour Intake 1806 ml Output 1503 ml Net 303 ml Last documented weight: Weight: 105.3 kg (232 lb 2.3 oz) (11/07/24 0200) EXAM: General: alert, in no distress Neurologic: Grossly normal HEENT: atraumatic, Normocephalic, without obvious abnormality Lungs: decreased a ir entry bilaterally, normal respiratory effort Heart: normal rate and regular rhythm, S1 and S2 normal Abdomen:soft,non tender. Bowel sounds present Extremities: intact distal pulses, moves all extremities equally Skin: Warm and dry LABORATORY: Recent Labs 11/05/24 1720 11/06/24 0413 11/07/24 0410 WBC 13.4* 12.8* 10.2 HGB 11.0* 11.0* 10.4* HCT 36.3 35.4* 33.8* PLT 190 202 188 Recent Labs 11/05/24 1720 11/06/24 0413 NA 142 137 K 3.6 4.8 CL 104 103 CO2 26 22 CA 8.8 9.0 BUN 17 18 CREAT 0.69 0.47* GLUCOSE 168* 371* Recent Labs 11/05/24 172 TOTALPROTEIN 6.1* ALBUMIN 3.4* BILITOTAL 0.2 ALKPHOS 116* AST 21 ALT 26 Recent Labs 11/05/24 1757 11/06/24 0413 11/07/24 0410 INR 1.9* 1.4* 2.4* PT 22.4* 17.4* 27.3* No results for input(s): CPK , CKMB , TROPONIN in the last 72 hours. Diagnostic testing reviewed by me: Medications reviewed by me ASSESSMENT AND PLAN: Principal Problem: COPD exacerbation (CMS/HCC) Active Problems: Bipolar affective disorder (CMS/HCC) Former smoker Mixed hyperlipidemia Chronic pain syndrome HEENA (generalized anxiety disorder) Opioid dependence (CMS/HCC) History of cancer of vagina History of breast cancer History of splenectomy History of pulmonary embolism Chronic respiratory failure with hypoxia, on home O2 therapy (CMS/HCC) Anemia Acute on chronic hypoxic respiratory failure (CMS/HCC) 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) CAD (coronary atherosclerotic disease) Chronic anticoagulation Closed compression fracture of body of L1 vertebra (CMS/HCC) Back pain Centrilobular emphysema (CMS/HCC) Obesity Essential hypertension Mass of left lung Acute on chronic hypoxic respiratory failure- now off BIPAP and on 3L NC COPD exacerbation- continue with antibiotics , steroids, nebs CT chest from July and October 2024 LLL Mass like consolidation. Discussed with Pulmonary Diabetes mellitus on insulin Diarrhea on admission - now resolved Back pain due to history of L1 Compression fracture status post fall in July 2024 on TSLO brace . Outpatient Neurosurgery and IR follow up HTN on BB, imdur CAD status post stent on ASA, imdur, Ranexa, statin Afib / pulmonary embolism on coumadin . Monitor INR HFrEF on entresto, lasix prn CA breast s//p mastectomy Status post splenectomy Chronic pain DVT prevention: coumadin Disposition- Anticipated Disposition Location: home Anticipated Disposition Timeframe: 1-2 days Disposition Criteria: clinically stable Disposition Education Needed: LLL biopsy Disposition DME/Equipment Needs: TBD CODE STATUS: Full Code Maida Blas MD 11/07/2024, 11:59 AM * Nica Zurita RN - 11/07/2024 11:22 AM CDT Learners: Patient Readiness: Acceptance Method: Explanation and Handout Teaching Points Response Understanding Heart Failure Verbalizes Understanding Heart Failure Medication Management Importance of Taking as Prescribed Side Effects Preferred Pharmacy: [facility]/PHARMACY #[id number] - [place], [place] - [address] [facility] [place] Verbalizes Understanding Diet and Nutrition Prescribed Diet [...] Verbalizes Understanding Stress Management Awareness Reduction Strategies Demonstrates Understanding Sleep Sleep Schedule and Routine Verbalizes Understanding Physician/Provider Follow Up Appointment Importance of Keeping All Appointments Ongoing Monitoring and Early Identification of Issues Verbalizes Understanding Primary Care Provider Name: [employer] Name: Patient Care Team: Delta Wade MD as PCP - General (Family Practice) Amanda Streeter DO as Consulting Physician (Gynecologic Oncology) Jenniffer Lepe APRN-CNP as Nurse Practitioner (Nurse Practitioner Family) Yvette Renee NP as Nurse Practitioner (Nurse Practitioner Family) Marquita Xiong Provider Post Hospitalization Follow Up Appointment With: Date/Time: Free Text Date/Time Health Related Social Needs Impacting Care None Identified Consults and Referrals Identified: None Identified Comments: * Мария Ventura RN - 11/07/2024 3:51 AM CDT Upon entering pt's room for assessment, pt said hey, can you reach out to the doctor therapeutic recreation director for aone-time order for IV pain meds? Nurse reached out to provider therapeutic recreation director; current IV meds discontinued; no new orders. Pt's HS blood sugar was 422; pt requested multiple lunchboxes and snacks. Pt was educated on potential increase in blood sugar. Pt said I want a different room! Put me on a different floor! Pt requested more snacks. Sugar-free snacks offered and pt verbalized agreement. * Maida Yang MD - 11/06/2024 12:02 PM CDT [facility] Hospitalist/Internal Medicine Progress note LOS: LOS: 0 days HOSPITAL COURSE SUMMARY: 59 y/o female with HTN, HLD, GERD, COPD on 3-4 L nasal cannula oxygen at home, CAD s/p coronary stent placement, CHF, HEENA/bipolar disorder, insulin-dependent diabetes mellitus, history of breast C s/p mastectomy, history of PE on anticoagulation, chronic pain syndrome, history of splenectomy, obesity and former tobacco use admitted for COPD exacerbation SUBJECTIVE: Dyspnea and cough +. No significant sputum. No fever/chills OBJECTIVE: Temp (24hrs), Av.2 ??F (36.8 ??C), Min:97.4 ??F (36.3 ??C), Max:98.6 ??F (37 ??C) BP (!) 143/96 (BP Location: Left arm, Patient Position (BP): Supine) Pulse 85 Temp 97.4 ??F (36.3 ??C) (Temporal) Resp 20 Ht 5' 4.5 (1.638 m) Wt 104.4 kg (230 lb 2.6 oz) SpO2 97% BMI 38.90 kg/m?? Intake/Output Summary (Last 24 hours) at 11/06/2024 1202 Last data filed at 11/06/2024 0850 Gross per 24 hour Intake 1590 ml Output 1159 ml Net 431 ml Last documented weight: Weight: 104.4 kg (230 lb 2.6 oz) (11/06/24 0410) EXAM: General: alert, in no distress Neurologic: Grossly normal HEENT: atraumatic, Normocephalic, without obvious abnormality Lungs: decreased a ir entry bilaterally, normal respiratory effort Heart: normal rate and regular rhythm, S1 and S2 normal Abdomen:soft,non tender. Bowel sounds present Extremities: intact distal pulses, moves all extremities equally Skin: Warm and dry LABORATORY: Recent Labs 11/04/24 0445 11/05/24 1720 11/06/24 0413 WBC 9.9 13.4* 12.8* HGB 11.4* 11.0* 11.0* HCT 37.5 36.3 35.4* PLT 207 190 202 Recent Labs 11/04/24 0445 11/05/24 1720 11/06/24 0413 NA 140 142 137 K 4.1 3.6 4.8 CL 106 104 103 CO2 23 26 22 CA 9.1 8.8 9.0 BUN 19 17 18 CREAT 0.56 0.69 0.47* GLUCOSE 248* 168* 371* Recent Labs 11/04/24 0445 11/05/24 1720 TOTALPROTEIN 6.0* 6.1* ALBUMIN 3.4* 3.4* BILITOTAL 0.2 0.2 ALKPHOS 114* 116* AST 13 21 ALT 24 26 Recent Labs 11/03/24 1704 11/04/24 0445 11/05/24 1757 11/06/24 0413 INR 2.0* 2.4* 1.9* 1.4* PT 23.6* 27.0* 22.4* 17.4* No results for input(s): CPK , CKMB , TROPONIN in the last 72 hours. Diagnostic testing reviewed by me: Medications reviewed by me ASSESSMENT AND PLAN: Principal Problem: COPD exacerbation (CMS/HCC) Active Problems: Bipolar affective disorder (CMS/HCC) Former smoker Mixed hyperlipidemia Chronic pain syndrome HEENA (generalized anxiety disorder) Opioid dependence (CMS/HCC) History of cancer of vagina History of breast cancer History of splenectomy History of pulmonary embolism Chronic respiratory failure with hypoxia, on home O2 therapy (CMS/HCC) Anemia Acute on chronic hypoxic respiratory failure (CMS/HCC) 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) CAD (coronary atherosclerotic disease) Chronic anticoagulation Closed compression fracture of body of L1 vertebra (CMS/HCC)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 Neuropathy NSTEMI (non-ST elevated myocardial infarction) (CMS/HCC) 06/06/2023 No stents placed at this time NSTEMI (non-ST elevated myocardial infarction) (CMS/HCC) Paroxysmal A-fib (CMS/HCC) Paroxysmal atrial tachycardia Pneumonia due to COVID-19 virus Polycythemia Primary hereditary hemochromatosis 12/13/2010 Unspecified essential hypertension Vaginal cancer (CMS/HCC) 2019 s/p radiation (end 11/2019) and Cisplatin (chemo) (end 08/2019) tumor non- resectable . Surgical History: Past Surgical History: Procedure Laterality Date ENDOSCOPY, COLON, DIAGNOSTIC HX APPENDECTOMY HX BLADDER SUSPENSION Bladder Suspension HX ESOPHAGOGASTRODUODENOSCOPY N/A 03/19/2024 ESOPHAGOGASTRODUODENOSCOPY performed by Mikey Moon MD at [facility] MAIN OR HX MASTECTOMY Right no lymph node removal HX PTCA stents (x3 in 2016, x2 in 2018) HX SPINAL SURGERY 2005 C4-5 fusion at [place], [place] HX SPLENECTOMY HX SURGICAL OTHER 1984 vaginal reconstruction HX TONSILLECTOMY HX 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 INSERT MIDLINE IV 10/31/2024 SC CATH PLMT L HRT & ARTS W/NJX & ANGIO IMG S&I N/A 03/21/2024 Left heart cath performed by Kyler Helm MD at [facility] INVASIVE CARDIOLOGY SC CATH PLMT L HRT & ARTS W/NJX & ANGIO IMG S&I N/A 03/21/2024 Left Ventriculogram performed by Kyler Helm MD at [facility] INVASIVE CARDIOLOGY SC COLONOSCOPY FLX DX W/COLLJ SPEC WHEN PFRMD 01/23/2011 COLONOSCOPY performed by MACK BISWAS at [facility] ENDOSCOPY SC COLONOSCOPY FLX DX W/COLLJ SPEC WHEN PFRMD 09/19/2010 COLONOSCOPY performed by MACK BISWAS at [facility] ENDOSCOPY SC CORRECTION HAMMERTOE Left 07/20/2024 TOE(S) ARTHROPLASTY performed by Tereso Gil, DPM at [facility] MAIN OR SC EXPL PENETRATING WOUND SPX ABDOMEN/FLANK/BACK N/A 05/30/2023 LAPAROTOMY EXPLORATORY performed by Jose Cruz Montero DO at [facility] SC INJ SUBSTITUTE PARS PLANA/LIMBL W/WO ASPIR SPX Right 03/30/2024 EYE AIR FLUID GAS EXCHANGE performed by Eduardo Craven MD at [facility] SURGERY [employer] RPR RPTD SPLEEN SPLENORRHAPHY W/WO PRTL SPLENECT N/A 05/30/2023 SPLENECTOMY performed by Jose Cruz Montero DO at [facility] OR SC VITRECTOMY MCHNL PARS PLNA FOCAL ENDOLASER PC Right 03/30/2024 PARS PLANA VITRECTOMY WITH LASER performed by Eduardo Craven MD at [facility] SURGERY [facility] Social History: Social History Socioeconomic History Marital status: Spouse [...] 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 Feeling Safe: Not At Risk (11/05/2024) Feeling Safe Patient has indicated abuse: : No Housing Stability: Low Risk (10/17/2024) Housing Stability Struggle to pay rent or mortgage: No Family History: Family History Problem Relation Name Age of Onset Stomach Cancer Paternal Aunt Colon Cancer Paternal Grandmother Lung Cancer Paternal Grandmother Breast Cancer Maternal Aunt 60 Breast Cancer Maternal Aunt 70 Heart Disease Father Hypertension Father Breast Cancer Mother 58 Hypertension Mother Ovarian Cancer Neg Hx Allergies: Allergies Allergen Reactions Ketorolac Tromethamine Hives Prochlorperazine Hives and Seizure Propoxyphene Nausea and Vomiting Tramadol Hives Codeine Itching Propoxyphene N-Acetaminophen Nausea and Vomiting Review of Systems: 12 point review of systems done and was negative except for as documented above. Respiratory Data: Last documented vent settings FIO2%: 21 (11/05/24 1647) Most recent ABG results: Lab Results Component Value Date/Time FIO2 35.0 10/16/2024 03:13 AM VENTMODE BiPAP 08/04/2024 05:01 AM Physical Exam: BP 115/80 (BP Location: Right arm, Patient Position (BP): Sitting) Pulse 68 Temp 97.1 ??F (36.2??C) (Temporal) Resp 22 Ht 5' 4.5 (1.638 m) Wt 105.3 kg (232 lb 2.3 oz) SpO2 96% BMI 39.23 kg/m?? Weight: 105.3 kg (232 lb 2.3 oz) (11/05/242156) Intake/Output Summary (Last 24 hours) at 11/07/2024 1259 Last data filed at 11/07/2024 1200 Gross per 24 hour Intake 1906 ml Output 1504 ml Net 402 ml General: Alert, cooperative, no distress, appears stated age. Head: Normocephalic, without obvious abnormality, atraumatic Eyes: Conjunctivae/corneas clear. PERRL, mucosa moist. Ears: Auricle inspection and palpation normal both ears. Throat: Lips, mucosa, and tongue normal. Neck: Supple, symmetrical, trachea midline, no adenopathy, thyroid: no enlargement/tenderness/nodules, no JVD. Chest wall: No tenderness or deformity. Lungs: Diminished breath sounds bilaterally Heart: S1, S2 normal, no murmur, click, rub or gallop. Abdomen: Soft, non-tender. Bowel sounds normal. No masses, No organomegaly. Extremities: normal, no cyanosis, trace pedal edema. Skin: Color, texture, turgor normal. No rashes or lesions. Neurologic: CNII-XII intact. No focal deficits noted. Lab results: CBC: Recent Labs 11/05/24 1720 11/06/24 0413 11/07/24 041 WBC 13.4* 12.8* 10.2 HGB 11.0* 11.0* 10.4* HCT 36.3 35.4* 33.8* PLT 190 202 188 MCV 96.0 95.7 96.3 BMP: Recent Labs 11/05/24 1720 11/06/24 0413 GLUCOSE 168* 371* BUN 17 18 CREAT 0.69 0.47* NA 142 137 K 3.6 4.8 CL 104 103 CO2 26 22 ANIONGAP 12 12 CA 8.8 9.0 LFTs: Recent Labs 11/05/24 172 ALKPHOS 116* ALT 26 AST 21 BILITOTAL 0.2 ALBUMIN 3.4* Coagulation: Recent Labs 11/05/24 1757 11/06/24 0413 11/07/24 0410 PT 22.4* 17.4* 27.3* INR 1.9* 1.4* 2.4* CIE: Lab Results Component Value Date TROPONIN 18 06/23/2023 ABGs: No results for input(s): PHARTERIAL , CYM0DPA , PO2ART , NYT5AOK , BASEEXCESS , SO2 , PUNCSITE in the last 72 hours. Most recent radiology results: Results for orders placed or performed during the hospital encounter of 11/05/24 XR CHEST PA OR AP 1 VW Narrative Exam: XR CHEST PA OR AP 1 VW Date/Time of Exam: 11/05/2024 5:48 PM Reason For Exam: Difficulty Breathing Diagnosis: See Reason for Exam The heart size is normal. The lungs are clear. No pneumothorax is seen. Impression Impression: No evidence of infiltrates. Results for orders placed or performed during the hospital encounter of 09/10/24 XR CHEST PA AND LATERAL 2 VW Narrative EXAM: XR CHEST PA AND LATERAL 2 [...] the cervical spine. - Additional comments: None. Impression IMPRESSION: No new acute radiographic findings or significant interval change. IMPRESSION Principal Problem: COPD exacerbation (CMS/HCC) Active Problems: Bipolar affective disorder (CMS/HCC) Former smoker Mixed hyperlipidemia Chronic pain syndrome HEENA (generalized anxiety disorder) Opioid dependence (CMS/HCC) History of cancer of vagina History of breast cancer History of splenectomy History of pulmonary embolism Chronic respiratory failure with hypoxia, on home O2 therapy (CMS/HCC) Anemia Acute on chronic hypoxic respiratory failure (CMS/HCC) 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) CAD (coronary atherosclerotic disease) Chronic anticoagulation Closed compression fracture of body of L1 vertebra (CMS/HCC) Back pain Centrilobular emphysema (CMS/HCC) Obesity Essential hypertension Mass of left lung PLAN: I reviewed the chest images from the CT scan that was done during this admission as well as a CT scan that was done at this admission and the one that was noted June 2024 The masslike density that is reported on the CT scan in this admission appears to be consistent with rounded atelectasis that was seen previously. Possibly representing fibrotic tissue I explained to the patient that this finding is unlikely to be the source of her pain. No further workup needed at this time for the rounded atelectasis at this tme. Agree with prednisone taper Continue bronchodilators Discussed with the hospitalist . I will arrange for outpatient follow up with me next week. I will sign off at this time. Please call with any questions that you may have. Angeli Miles MD * Adelaida Dewitt RN - 11/05/2024 4:37 PM CDTAssociated Order(s): IP CONSULT TO IV TEAM VASCULAR ACCESS CONSULT PATIENT NAME: Le Diaz DATE OF : 1965 CSN: [id number] DATE: 11/05/2024 Room: H/H Admit Date: 11/05/2024 Hospital day: LOS: 0 days INDICATION: iv access EXCLUSIONS/CONSIDERATIONS: poor acces LAST RECORDED TEMP: ] Assessment Allergies Allergen Reactions Ketorolac Tromethamine Hives Prochlorperazine Hives and Seizure Propoxyphene Nausea and Vomiting Tramadol Hives Codeine Itching Propoxyphene N-Acetaminophen Nausea and Vomiting Lab Results Component Value Date/Time WBC 9.9 11/04/2024 04:45 AM HGB 11.4 (L) 11/04/2024 04:45 AM HGBPOC 12.2 10/31/2024 06:38 AM HCT 37.5 11/04/2024 04:45 AM HCTPOC 37 (L) 10/31/2024 06:38 AM PLT 207 11/04/2024 04:45 AM MCV 98.2 11/04/2024 04:45 AM FERRITIN 77 07/10/2023 02:17 PM Past Medical History: Diagnosis Date Anxiety Arthritis [...] smear Hyperlipidemia Ischemic cardiomyopathy Lower extremity edema [place] (myocardial infarction) (CMS/HCC) 2015 Neuropathy NSTEMI (non-ST elevated myocardial infarction) (CMS/HCC) 06/06/2023 No stents placed at this time NSTEMI (non-ST elevated myocardial infarction) ([facility]/HCC) Paroxysmal A-fib ([facility]) Paroxysmal atrial tachycardia Pneumonia due to COVID-19 virus Polycythemia Primary hereditary hemochromatosis 12/13/2010 Unspecified essential hypertension Vaginal cancer (CMS/HCC) 2019 s/p radiation (end 11/2019) and Cisplatin (chemo) (end 08/2019) tumor non- resectable . Past Surgical History: Procedure Laterality Date ENDOSCOPY, COLON, DIAGNOSTIC HX APPENDECTOMY HX BLADDER SUSPENSION Bladder Suspension HX ESOPHAGOGASTRODUODENOSCOPY N/A 03/19/2024 ESOPHAGOGASTRODUODENOSCOPY performed by Mikey Moon MD at [facility] MAIN OR HX MASTECTOMY Right no lymph node removal HX PTCA stents (x3 in 2015, x2 in 2018) HX SPINAL SURGERY 2004 C4-5 fusion at [place], [place] HX SPLENECTOMY HX SURGICAL OTHER 1984 vaginal reconstruction HX TONSILLECTOMY HX 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 INSERT MIDLINE IV 10/31/2024 SC CATH PLMT L HRT & ARTS W/NJX & ANGIO IMG S&I N/A 03/21/2024 Left heart cath performed by Kyler Helm MD at [facility] CARDIOLOGY SC CATH PLMT L HRT & ARTS W/NJX & ANGIO IMG S&I N/A 03/21/2024 Left Ventriculogram performed by Kyler Helm MD at [facility] CARDIOLOGY SC COLONOSCOPY FLX DX W/COLLJ SPEC WHEN PFRMD 01/23/2011 COLONOSCOPY performed by MACK BISWAS at [facility] ENDOSCOPY SC COLONOSCOPY FLX DX W/COLLJ SPEC WHEN PFRMD 09/19/2010 COLONOSCOPY performed by MACK BISWAS at [facility] ENDOSCOPY SC CORRECTION HAMMERTOE Left 07/20/2024 TOE(S) ARTHROPLASTY performed by Tereso Gil DPM at [facility] MAIN OR SC EXPL PENETRATING WOUND SPX ABDOMEN/FLANK/BACK N/A 05/30/2023 LAPAROTOMY EXPLORATORY performed by Jose Cruz Montero DO at [facility] OR SC INJ SUBSTITUTE PARS PLANA/LIMBL W/WO ASPIR SPX Right 03/30/2024 EYE AIR FLUID GAS EXCHANGE performed by Eduardo Craven MD at [facility] SURGERY [employer] RPR RPTD SPLEEN SPLENORRHAPHY W/WO PRTL SPLENECT N/A 05/30/2023 SPLENECTOMY performed by Jose Cruz Montero DO at [facility] OR SC VITRECTOMY MCHNL PARS PLNA FOCAL ENDOLASER PC Right 03/30/2024 PARS PLANA VITRECTOMY WITH LASER performed by Eduardo Craven MD at [facility] SURGERY [facility] Current Facility-Administered Medications: [COMPLETED] IPRATROPIUM 0.5 MG-ALBUTEROL 3 MG (2.5 MG BASE)/3 ML NEBULIZATION SOLN (CABINET OVERRIDE), , , , , 9 mL at 11/05/24 1636 fluorescein (AK-ABHI, FLUORESCITE) 500 mg/5 mL (10 %) injection 1 mL, 1 mL, IV, ONE time only, Eduardo Craven MD proparacaine (OPTHAINE) 0.5 % ophthalmic solution 2 Drop, 2 Drop, Both Eyes, ONE time only, Eduardo Craven MD phenylephrine 2.5 % ophthalmic solution 1 Drop, 1 Drop, Both Eyes, ONE time only, Eduardo Craven MD Current Outpatient Medications: acetaminophen (TYLENOL) 325 mg tablet, Take 2 Tablets (650 mg) by mouth every 6 hours as needed forPain, Mild / Temperature (.)., Disp: , Rfl: Lantus Solostar U-100 Insulin 100 unit/mL (3 mL) solution for injection, Inject 40 Units by subcutaneous injection daily at bedtime., Disp: 15 mL, Rfl: 1 methocarbamoL (ROBAXIN) 500 mg tablet, Take 1 Tablet (500 mg) by mouth every 6 hours as needed for Spasm., Disp: 20 Tablet, Rfl: 0 ticagrelor (Brilinta) 90 mg Tablet, Take 90 mg by mouth 2 times daily., Disp: , Rfl: budesonide 160 mcg-glycopyr 9 mcg-formot 4.8 mcg/actuation [...] in the day., Disp: 30 Tablet,Rfl: 1 [Paused] furosemide (LASIX) 80 mg tablet, Take 1 Tablet (80 mg) by mouth 2 times daily., Disp: 60 Tablet, Rfl: 3 HYDROcodone-acetaminophen (NORCO) 7.5-325 mg Tablet, Take 1 Tablet by mouth every 8 hours as neededfor Pain, Moderate or Pain, Severe., Disp: , Rfl: [Paused] empagliflozin (JARDIANCE) 10 mg tablet, Take 1 Tablet (10 mg) by mouth daily in the morning., Disp: 30 Tablet, Rfl: 0 metoprolol succinate (TOPROL XL) [...] times daily with meals., Disp: , Rfl: oxygen home delivery, Home [...] mouth daily at bedtime., Disp: , Rfl: [Paused] potassium CHLORIDE (KLOR-CON) 10 mEq Extended Release tablet, Take 1 Tablet by mouth daily., Disp: , Rfl: nitroglycerin (NITROSTAT) 0.4 mg [...] Disp: , Rfl: naloxone (NARCAN) 4 mg/spray Rougon, Non-Aerosol, EMERGENCY USE ONLY: Administer 1 spray [...] Facility-Administered Medications Ordered in Other Encounters: [DISCONTINUED] methocarbamoL (ROBAXIN) tablet 500 mg, 500 mg, Oral, every 6 hours, James Lee MD, 500 mg at 11/04/24 0925 [DISCONTINUED] insulin glargine-yfgn injection 7 Units, 7 Units, subCUT, daily WITH breakfast, James Lee MD, 7 Units at 11/04/24 0924 [DISCONTINUED] insulin lispro (HumaLOG,ADMELOG) injection 10 Units, 10 Units, subCUT, TID WITH meals, James Lee MD, 10 Units at 11/04/24 1131 [DISCONTINUED] zinc OXIDE-cod liver oil (DESITIN) 40 % topical paste, , Topical, see admin instructions, James Lee MD [DISCONTINUED] dextrose 5 % - sodium chloride 0.9 % infusion, , IV, see admin instructions, James Lee MD [DISCONTINUED] dextrose 50% (D50) syringe 12.5 Gram, 12.5 Gram, IV, see admin instructions, James Lee MD [DISCONTINUED] dextrose 50% (D50) syringe 25 Gram, 25 Gram, IV, see admin instructions, James Lee MD [DISCONTINUED] glucagon HCL 1 mg/mL injection 1 mg, 1 mg, IM, see admin instructions, James Lee MD [DISCONTINUED] insulin glargine-yfgn injection 35 Units, 35 Units, subCUT, daily BEDTIME, James Lee MD, 35 Units at 11/03/242021 [DISCONTINUED] insulin lispro (HumaLOG,ADMELOG) injection 0-12 Units, 0-12 Units, subCUT, TID WITH meals, James Lee MD, 8 Units at 11/04/24 1130 [DISCONTINUED] insulin lispro (HumaLOG,ADMELOG) injection 0-6 Units, 0-6 Units, subCUT, daily BEDTIME, James Lee MD, 4 Units at 11/03/242021 [DISCONTINUED] warfarin daily dose reminder, , Oral, daily AFTER lunch, James eLe MD, Acknowledged at 11/04/24 1300 [DISCONTINUED] nitroglycerin (NITROSTAT) tablet 0.4 mg, 0.4 mg, Sublingual, every 5 minutes PRN, Aggie Rivas DO, 0.4 mg at 10/31/24 08 [DISCONTINUED] sodium chloride flush injection 10 mL, 10 mL, IV, every 12 hours, Aggie Rivas DO, 10 mL at 11/03/242023 [DISCONTINUED] sodium chloride flush injection 5 mL, 5 mL, IV, see admin instructions, Aggie Rivas DO [DISCONTINUED] sodium chloride flush injection 10 mL, 10 mL, IV, BID, Aggie Rivas DO, 10 mL at 11/03/242023 [DISCONTINUED] ipratropium-albuteroL (DUONEB) 0.5 mg-3 mg(2.5 mg base)/3 mL inhalation solution 3 mL, 3 mL, Inhalation, resp, every 4 hours PRN, Danyell Dewitt MD, 3 mL at 11/04/24 1159 [DISCONTINUED] aspirin (CARTER CHEWABLE) chewable tablet 81 mg, 81 mg, Oral, daily, Vipul Dewitt MD, 81 mg at 11/04/24 0925 [DISCONTINUED] warfarin (COUMADIN) tablet 12 mg, 12 mg, Oral, daily LATE, James Lee MD, 12 mgat 11/03/24 1756 [DISCONTINUED] atorvastatin (LIPITOR) tablet 40 mg, 40 mg, Oral, daily BEDTIME, Danyell Dewitt MD, 40 mg at 11/03/242022 [DISCONTINUED] furosemide (LASIX) tablet 80 mg, 80 mg, Oral, BID, Danyell Dewitt MD, 80 mg at 11/01/242150 [DISCONTINUED] isosorbide mononitrate (IMDUR) SR 24 hour tablet 30 mg, 30 mg, Oral, daily, Danyell Dewitt MD, 30 mg at 11/04/24924 [DISCONTINUED] metoprolol succinate (TOPROL XL) SR 24 hour tablet 25 mg, 25 mg, Oral, daily, Danyell Dewitt MD, 25 mg at 11/04/24924 [DISCONTINUED] ranolazine ER (RANEXA) SR 12 hour tablet 500 mg, 500 mg, Oral, every 12 hours (2 times daily), Danyell Dewitt MD, 500 mg at 11/04/24927 [DISCONTINUED] sacubitriL-valsartan (ENTRESTO) 24-26 mg tablet 1 Tablet, 1 Tablet, Oral, BID, James Lee MD, 1 Tablet at 11/04/24924 [DISCONTINUED] albuterol sulfate 90 mcg/Actuation inhaler 2 Puff, 2 Puff, Inhalation, resp, every 6hours PRN, Danyell Dewitt MD, 2 Puff at 11/04/24 1327 [DISCONTINUED] OLANZapine (ZyPREXA) tablet 10 mg, 10 mg, Oral, daily BEDTIME, Danyell Dewitt MD, 10 mg at 11/03/242022 [DISCONTINUED] sodium chloride flush injection 10 mL, 10 mL, IV, every 12 hours (2 times daily), Danyell Dewitt MD, 10 mL at 11/04/24924 [DISCONTINUED] sodium chloride flush injection 10 mL, 10 mL, IV, see admin instructions, Danyell Dewitt MD [DISCONTINUED] sodium chloride 0.9 % flush bag 25 mL, 25 mL, IV, see admin instructions, Danyell Dewitt MD [DISCONTINUED] dextrose 5 % in water 250 mL flush bag 25 mL, 25 mL, IV, see admin instructions, Danyell Dewitt MD [DISCONTINUED] naloxone (NARCAN) 0.4 mg/mL injection 0.1-0.4 mg, 0.1-0.4 mg, IV, see admin instructions, Danyell Dewitt MD [DISCONTINUED] acetaminophen (TYLENOL) tablet 650 mg, 650 mg, Oral, every 6 hours PRN, Danyell Dewitt MD [DISCONTINUED] HYDROcodone-acetaminophen (NORCO) 10-325 mg per tablet 1 Tablet, 1 Tablet, Oral, every 4 hours PRN, Danyell Dewitt MD, 1 Tablet at 11/04/24 1328 [DISCONTINUED] polyethylene glycol (MIRALAX) packet 17 Gram, 17 Gram, Oral, BID PRN, Danyell Dewitt MD, 17 Gram at 11/02/24 2106 [DISCONTINUED] cefTRIAXone (ROCEPHIN) 2,000 mg in sodium chloride 0.9% 50 mL IVPB (MBP), 2,000 mg, IV, every 24 hours (daily), Danyell Dewitt MD, Stopped at 11/03/24 1139 [DISCONTINUED] fluticasone furoate-vilanteroL (BREO ELLIPTA) 100-25 mcg/dose inhaler 1 Puff, 1 Puff, Inhalation, resp, daily, Danyell Dewitt MD, 1 Puff at 11/04/24 0713 [DISCONTINUED] umeclidinium (INCRUSE ELLIPTA) 62.5 mcg/actuation inhaler 1 Puff, 1 Puff, Inhalation, resp, daily, Danyell Dewitt MD, 1 Puff at 11/04/24 0713 [DISCONTINUED] doxycycline hyclate (VIBRAMYCIN) 100 mg in sodium chloride 0.9% 100 mL IVPB (MBP), 100 mg, IV, every 12 hours (2 times daily), Danyell Dewitt MD, Stopped at 11/04/24 1024 [DISCONTINUED] ticagrelor (BRILINTA) tablet 90 mg, 90 mg, Oral, BID, Danyell Dewitt MD, 90 mg at 11/04/24 0925 [DISCONTINUED] sodium chloride flush injection 10 mL, 10 mL, IV, every 12 hours (2 times daily), Aggie Rivas DO, 10 mL at 11/03/242024 [DISCONTINUED] sodium chloride flush injection 10 mL, 10 mL, IV, see admin instructions, Aggie Rivas DO [DISCONTINUED] sodium chloride 0.9 % flush bag 25 mL, 25 mL, IV, see admin instructions, Aggie Rivas, DO PLAN PIV Adelaida Dewitt, RN documented in this encounter ED Notes * Tisha Ma LPN - 11/05/2024 6:44 PM CDT Patient medicated per MAY. Pt educated on possible side effects and instructed to call nurse with any concerns. Pt verbalized understanding. Call light and personal items within reach. Bed locked andin lowest position. No additional needs at this time. * Tisha Ma LPN - 11/05/2024 6:02 PM CDT Patient medicated per MAY. Pt educated on possible side effects and instructed to call nurse with any concerns. Pt verbalized understanding. Patient states she is still in a lot of pain . I informedpatient she had just received the pain medication not too long ago and that it was all I have ordered at this time. Patient stated I saw Dr. Booth walk by. You can go tell him I am still in pain. Informed patient I would notify the provider of her continued pain, however, he was currently in a different room. Pt verbalized understanding. Call light and personal items within reach. Bed locked and in lowest position. No additional needs at this time. Message sent to provider via secure chat. * Tisha Ma LPN - 11/05/2024 5:38 PM CDT Pt again has bipap mask removed for comfort. Pt sating 94% on RA. * Tisha Ma LPN - 11/05/2024 5:25 PM CDT Pt placed bipap mask back on. * Tisha Ma LPN - 11/05/2024 5:20 PM CDT Arrived to pt room to find her without her Bipap mask on. Patient stated she was feeling claustrophobic and took it off. Pt sating at 95% on RA. Patient medicated per MAY. Pt educated on possible side effects and instructed to call nurse with any concerns. Pt verbalized understanding. Call light and personal items within reach. Bed locked and in lowest position. No additional needs at this time. * Reina Puckett RN - 11/05/2024 4:28 PM CDT Patient presents to the ED today via POV with complaint of COPD Exacerbation. Per pt these symptomsstarted 2 hours ago. Pt did use their rescue inhaler with no improvement. Pt is awake, alert and oriented x4. Skin color is normal for ethnicity, warm and dry. Respirations are labored and SOB . Awaiting provider assessment at this time. Respiratory @bedside, CPAP being applied. Patient/family oriented to the room. at bedside. Call light in reach. Will continue to monitor. Comfort measures offered. * Aki Booth DO - 11/05/2024 4:16 PM CDTAssociated Order(s): Critical Care HISTORY OF PRESENT ILLNESS This patient with a history of COPD presents with acute onset shortness of breath and left-sided chest pain that began approximately 2 hours prior to arrival. The patient describes the pain as localized to the left lung area and reports it as severe. She reports that she has a mass in the right lung. She denies any fever, earache, sore throat, significant cough, current headache, she has some diffuse abdominal pain but does not localize to location or area, she states she has had 3 episodes of diarrhea today without bleeding. She denies any dysuria, she denies any leg pain but does admit to having some left arm pain from the radiation from the chest. She states when her COPD comes on it typically will come on quickly. PAST MEDICAL HISTORY REVIEWED MEDICAL: Patient has a past medical history of Anxiety, Arthritis, Arthropathy, unspecified, site unspecified, Atrial flutter ([facility]), Bipolar affective disorder ([facility]), Breast cancer ([facility]) (2001), Breast mass (08/22/2010), Cervical neck pain with evidence of disc disease, Chronic hepatic failure ([facility]), Congenital absence of uterus, Congenital absence of vagina, Congenital anomaly, Congestive heart failure ([facility]), Coronary artery disease, Deep vein thrombosis (DVT) ([facility]) (2023), Depression (08/22/2010), Diabetes mellitus ([facility]) (2023), Difficult intravenous access, Dyspnea (08/15/2024), Dyspnea on exertion, Emphysema of lung ([facility]), GERD (gastroesophageal reflux disease), H/O heart artery stent, H/O mastectomy, right, 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), Hereditary hemochromatosis, abnormal cervical Pap smear, Hyperlipidemia, Ischemic cardiomyopathy, Lower extremity edema, [place] (myocardial infarction) ([facility]) (2015), Neuropathy, NSTEMI (non-ST elevated myocardial infarction) ([facility]) (06/06/2023), NSTEMI (non-ST elevated myocardial infarction) ([facility]), Paroxysmal A-fib ([facility]), Paroxysmal atrial tachycardia, Pneumonia due to COVID-19 virus, Polycythemia, Primary hereditary hemochromatosis (12/13/2010), Unspecified essential hypertension, and Vaginal cancer ([facility]) (2019). SURGICAL: Patient has a [...] n-acetaminophen PHYSICAL EXAM INITIAL VS BP: (!) 156/81 (11/05/24 1647), Heart Rate: 98 bpm (11/05/24 1908), Resp: 30 (11/05/24 1752), Pulse: 97 (11/05/24 1647), Temp: 98.2 ??F (36.8 ??C) (11/05/241646), Temp src: Temporal (11/05/242154),SpO2: 98 % (11/05/24 164), Height: (not recorded), Weight: 105.3 kg (232 lb 2.3 oz) (11/05/242156), BMI (Calculated): (not recorded) No LMP recorded. 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 Physical Exam Vitals and nursing note reviewed. Constitutional: General: She is not in acute distress. Appearance: She is not diaphoretic. HENT: Head: Normocephalic. Right Ear: External ear normal. Left Ear: External ear normal. Mouth/Throat: Mouth: Mucous membranes are moist. Eyes: General: Right eye: No discharge. Left eye: No discharge. Pupils: Pupils are equal, round, and reactive to light. Cardiovascular: Pulses: Normal pulses. Pulmonary: Effort: Pulmonary effort is normal. No respiratory distress. Comments: Fine expiratory wheeze Abdominal: General: There is no distension. Palpations: Abdomen is soft. Tenderness: There is no abdominal tenderness. Comments: Diffuse abdominal pain described however no ability to localize and no evidence of rigidity rebound or guarding Abdominal exam includes GI system exam as noted Musculoskeletal: General: Normal range of motion. Cervical back: Normal range of motion and neck supple. Right lower leg: No edema. Left lower leg: No edema. Skin: General: Skin is warm. Neurological: General: No focal deficit present. Mental Status: She is oriented to person, place, and time. Psychiatric: Mood and Affect: Mood normal. DIAGNOSTICS LAB: CBC WITH DIFFERENTIAL - Abnormal Result Value WBC 13.4 (*) NRBCS 2 (*) RBC 3.78 (*) HEMOGLOBIN 11.0 (*) HEMATOCRIT 36.3 MCV 96.0 MCH 29.1 MCHC 30.3 PLATELETS 190 MPV 10.4 RDW 18.2 (*) RDW-STDEV 64.8 (*) NEUTROPHILS 67 LYMPHOCYTES 21 (*) MONOCYTES 9 EOSINOPHILS 1 BASOPHILS 0 IMMATURE GRANULOCYTES 3 (*) NEUTROPHIL ABSOLUTE 8.96 (*) LYMPHOCYTE ABSOLUTE 2.76 MONOCYTE ABSOLUTE 1.13 (*) EOSINOPHIL ABSOLUTE 0.09 BASOPHILS ABSOLUTE 0.05 IMMATURE GRANULOCYTES ABSOLUTE 0.37 (*) SMEAR REVIEWED: NA - Not Applicable COMPREHENSIVE METABOLIC PANEL - Abnormal SODIUM 142 POTASSIUM 3.6 CHLORIDE 104 CO2 26 CALCIUM 8.8 BUN 17 CREATININE 0.69 GLUCOSE 168 (*) TOTAL PROTEIN 6.1 (*) ALBUMIN 3.4 (*) BILIRUBIN TOTAL 0.2 ALKALINE PHOSPHATASE 116 (*) AST 21 ALT 26 GFR >60 ANION GAP 12 PROTIME-INR - Abnormal PROTIME 22.4 (*) INR 1.9 (*) BRAIN NATRIURETIC PEPTIDE, BNP OR PROBNP - Abnormal PROBNP, N TERMINAL 410 (*) RESPIRATORY PATHOGEN PCR PANEL - Normal Respiratory Pathogen PCR Panel No respiratory pathogen nucleic acids detected. COVID-19 PCR Not Detected GI PATHOGEN PCR PANEL RADIOLOGY: XR CHEST PA OR AP 1 VW Radiologist Impression Impression: No evidence of infiltrates. EKG: PROCEDURES Critical Care Performed by: Aki Booth DO Authorized by: Aki Booth DO Critical care provider statement: Critical care time (minutes): 35 Critical care time was exclusive of: Separately billable procedures and treating other patients andteaching time Critical care was necessary to treat [...] specialty: no Care discussed with: admitting provider MEDICAL DECISION MAKING AND PLAN OF CARE Medical Decision Making Amount and/or Complexity of Data Reviewed Labs: ordered. Radiology: ordered. ECG/medicine tests: ordered. Risk Prescription drug management. Decision regarding hospitalization. Clinical Scoring & Consults Chart Documentation: Protocol orders were likely utilized at triage including labs/imaging/etc. We specifically discussed that in the emergency room we focus on identifying life threatening problems and frequently the actual cause of symptoms are not found and further workup may be required. Patient agrees with plan for workup. We discussed that evaluation in the ER can easily exceed 6 hours with all other departments involved. IF Vrad was used for initial imaging, this was used for decision making: --as final read was not available at time of pt care. Imaging, ekg, labs if done-documented/summarized below, additional hpi and sources of history if obtained-noted in hpi or summarized below: Decision to obtain prior records: Yes OLD RECORDS REVIEWED:(including ems/family/nh hx, medhx, meds, all, sochx, recent phone calls, epic, er visits.) Patient is on warfarin, oxygen, The patient has a history of obesity, diabetes, hypertension, lung mass, COPD, CHF diarrhea, bipolar disorder the patient was here recently and has had several recent ER visits as well she was discharged yesterday for COPD exacerbation Patient had echocardiogram November 02 which showed a EF of 45% and inability to evaluate for diastolic function The patient had a nuclear medicine stress test October 03, 2024 which showed no reversible defect Initial vitals: Hypertensive on BiPAP, review of nursing notes at this point - yes, 4:58 PM Life threatening illnesses/threat to bodily function possibilities as well as more common possible etiologies were considered but not limited to such as: Most obvious/occult/omnious: By virtue of history and physical, some of these diagnoses can be excluded. COPD exacerbation, CHF exacerbation, viral illness, pneumothorax, PE, STEMI, dysrhythmia, electrolyte disorder HPI summary: Ms. Diaz is a pleasant 59 y.o. female who presents to the emergency department with shortness of breath with multiple other complaints including diarrhea, chest discomfort on the left side ED course/workup significant for/plan: Data: EKG: First ER EKG my interpretation normal sinus rhythm rate 97 normal SC normal QRS normal QTc there is no ST segment elevation or depression there are nonspecific changes present, compared to old EKG from October 31, 2024 there is no new significant change in morphology CBC shows elevated white blood cell count with chronic anemia otherwise unremarkable PE is unremarkable Elevated INR is slightly subtherapeutic Respiratory pathogen panel negative Chest x-ray is negative ---- ED Course: (Based upon current information at this time) Patient refused ABG. Risk benefits indications discussed with her. Patient has chronic diarrhea. Patient had recent CTA chest which was read as negative, INR is 1.9 I do not suspect PE. The patient was initially on BiPAP, she was given breathing treatments, she was given steroids. Shedid have significant improvement was able to tolerate coming off of BiPAP. Her respiratory status will continue to be monitored closely in case she needs to go back on BiPAP. I will discuss case with the hospitalist for admission. Consulted: I did discuss the patient's presenting complaint, history, physical exam findings, ER workup and my specific concerns, with Dr. Baig, the hospitalist they agree with workup so far and, hewill admit Medications Administered During the ED Stay from 11/05/2024 1616 to 11/05/2024 2154 Date/Time Order Dose Route Action 11/05/2024 1636 CDT IPRATROPIUM 0.5 MG-ALBUTEROL 3 MG (2.5 MG BASE)/3 ML NEBULIZATION SOLN (CABINETOVERRIDE) 9 mL Given 11/05/2024 1720 CDT ipratropium-albuteroL (DUONEB) 0.5 mg-3 mg(2.5 mg base)/3 mL inhalation solution 3 mL -- Inhalation Canceled Entry 11/05/2024 1700 CDT ipratropium-albuteroL (DUONEB) 0.5 mg-3 mg(2.5 mg base)/3 mL inhalation solution 3 mL -- Inhalation Canceled Entry 11/05/2024 1751 CDT methylPREDNISolone sodium succinate (SOLU-Medrol) 125 mg in sterile water 2 mL injection 125 mg IV Given 11/05/2024 1720 CDT fentaNYL PF (SUBLIMAZE) 50 mcg/mL injection 50 mcg 50 mcg IV Given 11/05/2024 1840 CDT HYDROmorphone (PF) (DILAUDID) injection 0.5 mg 0.5 mg IV Given 11/05/2024 2100 CDT sodium chloride flush injection 10 mL 10 mL IV Given Current Discharge Medication List CONTINUE these medications which have NOT CHANGED Details acetaminophen (TYLENOL) 325 mg tablet Take 2 Tablets (650 mg) by mouth every 6 hours as needed for Pain, Mild / Temperature (.). Lantus Solostar U-100 Insulin 100 unit/mL (3 mL) solution for injection Inject 40 Units by subcutaneous injection daily at bedtime. Qty: 15 mL, Refills: 1 methocarbamoL (ROBAXIN) 500 mg tablet Take 1 Tablet (500 mg) by mouth every 6 hours as needed for Spasm. Qty: 20 Tablet, Refills: 0 ticagrelor (Brilinta) 90 mg Tablet Take 90 mg by mouth 2 times daily. budesonide 160 mcg-glycopyr 9 mcg-formot 4.8 mcg/actuation HFA inhaler Take 2 Puffs by inhalation 2times daily. Qty: 60 Each, Refills: 1 ranolazine ER (RANEXA) 500 mg Extended Release 12 hour tablet Take 1 Tablet (500 mg) by mouth every12 hours. Qty: 60 Tablet, Refills: 1 warfarin (COUMADIN) 6 mg tablet Take 2 Tablets (12 mg) by mouth late in the day. Qty: 30 Tablet, Refills: 1 furosemide (LASIX) 80 mg tablet Take 1 Tablet (80 mg) by mouth 2 times daily. Qty: 60 Tablet, Refills: 3 HYDROcodone-acetaminophen (NORCO) 7.5-325 mg Tablet Take 1 Tablet by mouth every 8 hours as needed for Pain, Moderate or Pain, Severe. empagliflozin (JARDIANCE) 10 mg tablet Take 1 Tablet (10 mg) by mouth daily in the morning. Qty: 30 Tablet, Refills: 0 metoprolol succinate (TOPROL XL) 25 mg Extended Release 24 hour tablet Take 1 Tablet (25 mg) by mouth daily. Qty: 30 Tablet, Refills: 0 sacubitriL-valsartan (ENTRESTO) 24-26 mg Tablet Take 1 Tablet by mouth 2 times daily. Qty: 60 Tablet, Refills: 0 ipratropium-albuteroL (DUONEB) 0.5 mg-3 mg(2.5 mg base)/3 mL Solution for Nebulization Take 3 mL byinhalation every 4 hours as needed for Shortness of Breath. Qty: 300 mL, Refills: 1 Nebulizer & Compressor For Neb Device every 4 hours as needed for Other (See Comment) (shortness of breath). Qty: 1 Each, Refills: 0 levalbuterol (XOPENEX) 1.25 mg/3 mL Solution for Nebulization Take 1.25 mg by inhalation every 6 hours as needed for Shortness of Breath or Wheezing. triamcinolone acetonide (KENALOG) 0.1 % Ointment Apply to affected area 2 times daily as needed forOther (See Comment) (rash). Qty: 10 Gram, Refills: 0 Associated Diagnoses: Dermatitis insulin lispro (HumaLOG,ADMELOG) 100 unit/mL pen syringe Inject 14 Units by subcutaneous injection 3 times daily with meals. oxygen home delivery Home Oxygen Concentrator yes at 3 L/M Rest, 3 L/M Activity, 3 L/M Sleep, Delivery Device: Nasal Cannula Portability: yes, 3 L/M Rest, L/M Activity, May provide device best for patient needs(E system,home fill, conserving device) Length of Need: 99 months Qty: 1 Each, Refills: 0 Ventolin HFA 90 mcg/actuation inhaler Take 2 Puffs by inhalation every 6 hours as needed. isosorbide mononitrate (IMDUR) 30 mg Extended Release 24 hour tablet TAKE 1 TABLET BY MOUTH EVERY DAY Qty: 30 Tablet, Refills: 1 Associated Diagnoses: Chest pain, unspecified type; Congestive heart failure, unspecified HF chronicity, unspecified heart failure type (CMS/HCC) atorvastatin (LIPITOR) 40 mg tablet Take 40 mg by mouth daily at bedtime. potassium CHLORIDE (KLOR-CON) 10 mEq Extended Release tablet Take 1 Tablet by mouth daily. nitroglycerin (NITROSTAT) 0.4 mg Tablet, Sublingual Place 0.4 mg under tongue. OLANZapine (ZyPREXA) 10 mg tablet Take 10 mg by mouth daily at bedtime. aspirin (CARTER CHEWABLE) 81 mg Tablet, Chewable Take 81 mg by mouth daily. LORazepam (ATIVAN) 0.5 mg tablet Take 1 Tablet (0.5 mg) by mouth every 8 hours as needed for Anxiety. Qty: 20 Tablet, Refills: 0 Associated Diagnoses: Anxiety state fluorouraciL (EFUDEX) 5 % Cream portable oxygen Face to Face completed within 30 days: yes Length of Need: 99 months By: Nasal Cannula Continuously at 3 L/min. Qty: 1 Each, Refills: 0 Associated Diagnoses: Chronic obstructive pulmonary disease, unspecified COPD type ([facility]); Oxygen dependent TechLITE Pen Needle 29 gauge x 1/2 Needle USE directed with Victoza. naloxone (NARCAN) 4 mg/spray Rougon, Non-Aerosol EMERGENCY USE ONLY: Administer 1 spray (4 mg) in one nostril one time. May repeat in alternating nostrils every 2-3 min until responsive or EMS arrives. Qty: 2 Each, Refills: 3 blood sugar diagnostic Strip Use to test blood glucose up to QID PRN symptoms. Qty: 100 Each, Refills: 11 Comments: Did not like OneTouch Verio. Please provide per insurance preference. Associated Diagnoses: Type 2 diabetes mellitus without complication, without long-term current use of insulin ([facility]) OneTouch Delica Plus Lancet 30 gauge USE TO test fasting blood glucose DAILY Blood-Glucose Meter Kit Use to test blood glucose up to TID PRN symptoms. Qty: 1 Each, Refills: 0 Comments: Pt did not like OneTouch Verio. Please supply per insurance preference. Associated Diagnoses: Type 2 diabetes mellitus without complication, without long-term current use of insulin ([facility]) LAST VS BP: (!) 142/98 (11/05/242154), Heart Rate: 100 bpm (11/05/242144), Resp: 22 (11/05/242322), Pulse: (!) 120 (11/05/242322), Temp: 98.6 ??F (37 ??C) (11/05/242154), Temp src: Temporal (11/05/242154), SpO2: 95 % (11/05/242154) CLINICAL IMPRESSION Diagnoses Diagnosis Comment Added By Time Added Chronic obstructive pulmonary disease, unspecified COPD type (CMS/HCC) [J44.9] Aki Booth DO 11/05/2024 7:38 PM Respiratory abnormalities [R06.9] Aki Booth DO 11/06/2024 12:08 AM DISPOSITION, EDUCATION AND MEDICATION RECONCILIATION Medications reconciled. See after visit summary for patient education on discharged patients. ED Disposition ED Disposition Admit Condition Stable User Aki Booth DO Date/Time Sat Nov 05, 2024 7:38 PM Comment -- ATTESTATION STATEMENTS Diagnoses Diagnosis Comment Added By Time Added Chronic obstructive pulmonary disease, unspecified COPD type (CMS/HCC) [J44.9] Aki Booth DO 11/05/2024 7:38 PM Respiratory abnormalities [R06.9] Aki Booth DO 11/06/2024 12:08 AM documented in this encounter Miscellaneous Notes * Care Plan - Krys Joe RN - 11/07/2024 3:00 PM CDT Patient is being discharged home with family. Personal belongings sent with patient. Hourly rounding performed. Medications given per MAY. IV removed. Telemetry removed and brought to nurses station. Reviewed discharge paperwork and medications with patient and family. They verbalized understanding. Pulmonology consulted with patient today. She will follow-up with them as an outpatient. Patient was unhappy with staff throughout the day as her pain medication could not be given as frequent as she wanted. * Care Plan - Bernarda Win RCP - 11/07/2024 2:00 AM CDT Daily Respiratory Reassessment Note Le Camilo Diaz 59 y.o. female [id number] Daily respiratory reassessment of ordered therapy was performed. Based upon the finding documented on Doc Flowsheet, therapy ordered will decrease to TID and Albuterol MDI PRN . Bernarda Win RCP * Care Plan - Krys Joe RN - 11/06/2024 6:00 PM CDT Patient is resting in bed with family at bedside. Call light and personal belongings within reach. Hourly rounding performed. Medications given per MAY. Per hospitalist, no further IV Morphine; only PO pain medications. Norcoand Ativan given today. Pulmonology consult pending as patient has a lung mass. Patient wants to discuss a possible biopsy. Monitoring blood glucose. Patient is not well controlled as she states it is usually over 300 at home . Patient had solid BM overnight per shift superintendent caustic cresylate. Physician discontinued GI pathogen rule out for C.diff. * Care Plan - Reina Zafar RN - 11/06/2024 6:27 AM CDT Shift Summary Oxygen flow was increased and a nebulizer treatment was administered, resulting in improved and stable SpO2 readings throughout the shift. PRN pain medications were given, and activity required assistance with no weight-bearing restrictions documented. Discharge planning included review of the plan of care, documentation of living arrangements, and confirmation of advance directive status. No respiratory pathogens were detected on PCR panel, and breath sounds remained clear during assessment. Overall, respiratory status improved with interventions and discharge needs were identified and addressed during the shift. Identify discharge needs upon admission and through discharge: Assistance was needed for activity and transferring, and the patient lives with a friend/caregiver; no social or environmental concerns were documented, and the patient declined medication bedside delivery and caregiver participation in discharge education, with an advance directive on file. Achieve optimal respiratory function by discharge and/or maintain baseline function: Oxygen flow was increased from 3 L/min to 6 L/min during the shift, and SpO2 values improved from initial lows to consistently normal levels after intervention; a PRN nebulizer treatment was given and breath soundsremained clear, with no respiratory pathogens detected on PCR panel. * Care Plan - Bernarda Win, DIE CASTING MACHINE OPERATOR - 11/05/2024 11:44 PM CDT Images from the original note were not included. Respiratory Patient Care Assessment S- pt states she feels short of breath presently. Pt states she is supposed to take nebulizer QID, but has not. . Belkys Diaz is a 59 y.o. female admitted for No admission diagnoses are documented for this encounter. on 11/05/2024 4:22 PM. Social History Tobacco Use Smoking status: Former Average packs/day: 1 pack/day for 43.0 years (43.0 ttl pk-yrs) Types: Cigarettes Start date: 07/21/2022 Smokeless tobacco: Never Vaping Use Vaping status: Never Used Substance Use Topics Alcohol use: No Drug use: No Prior to Admission medications Medication Sig Start Date End Date Taking? Authorizing Provider acetaminophen (TYLENOL) 325 mg tablet Take 2 Tablets (650 mg) by mouth every 6 hours as needed for Pain, Mild / Temperature (.). 11/04/24 James Lee MD Lantus Solostar U-100 Insulin 100 unit/mL (3 mL) solution for injection Inject 40 Units by subcutaneous injection daily at bedtime. 11/04/24 James Lee MD methocarbamoL (ROBAXIN) 500 mg tablet Take 1 Tablet (500 mg) by mouth every 6 hours as needed for Spasm. 11/04/24 James Lee MD ticagrelor (Brilinta) 90 mg Tablet Take 90 mg by mouth 2 times daily. 09/20/24 Provider, Historical budesonide 160 mcg-glycopyr 9 mcg-formot 4.8 mcg/actuation HFA inhaler Take 2 Puffs by inhalation 2times daily. 10/29/24 12/28/24 Nani Borges MD ranolazine ER (RANEXA) 500 mg Extended Release 12 hour tablet Take 1 Tablet (500 mg) by mouth every12 hours. 10/29/24 12/28/24 Nani Borges MD warfarin (COUMADIN) 6 mg tablet Take 2 Tablets (12 mg) by mouth late in the day. 10/29/24 Nani Borges MD [Paused] furosemide (LASIX) 80 mg tablet Take 1 Tablet (80 mg) by mouth 2 times daily. Wait to take this until your doctor or other care provider tells you to start again. 10/19/24 Jasper Fairchild MD HYDROcodone-acetaminophen (NORCO) 7.5-325 mg Tablet Take 1 Tablet by mouth every 8 hours as needed for Pain, Moderate or Pain, Severe. Provider, Historical [Paused] empagliflozin (JARDIANCE) 10 mg tablet Take 1 Tablet (10 mg) by mouth daily in the morning. Wait to take this until your doctor or other care provider tells you to start again. 10/04/24 Li Box MD metoprolol succinate (TOPROL XL) 25 mg Extended Release 24 hour tablet Take 1 Tablet (25 mg) by mouth daily. 10/03/24 Li Box MD sacubitriL-valsartan (ENTRESTO) 24-26 mg Tablet Take 1 Tablet by mouth 2 times daily. 10/03/24 Li Pereyra MD ipratropium-albuteroL (DUONEB) 0.5 mg-3 mg(2.5 mg base)/3 mL Solution for Nebulization Take 3 mL byinhalation every 4 hours as needed for Shortness of Breath. 09/10/24 Don Causey, DO Nebulizer & Compressor For Neb Device every 4 hours as needed for Other (See Comment) (shortness of breath). 09/10/24 Don Causey, DO levalbuterol (XOPENEX) 1.25 mg/3 mL Solution for [...] daily with meals. 08/06/24 Kapil Deluna, DO oxygen home delivery [...] MOUTH EVERY DAY 07/05/24 Ashley Virgen NP atorvastatin (LIPITOR) 40 mg tablet Take 40 mg by mouth daily at bedtime. 05/13/23 Provider, Historical [Paused] potassium CHLORIDE (KLOR-CON) 10 mEq Extended Release tablet Take 1 Tablet by mouth daily. Wait to take this until your doctor or other care provider tells you to start again. 05/09/24 Provider, Historical nitroglycerin (NITROSTAT) 0.4 mg Tablet, [...] needed for Anxiety. 04/11/24 Heike Camarillo MD fluorouraciL (EFUDEX) 5 % Cream 02/01/24 Provider, Historical portable oxygen Face to Face completed within 30 days: yes Length of Need: 99 months By: Nasal Cannula Continuously at 3 L/min. 08/27/23 Ryann Burk MD TechLITE Pen Needle 29 gauge x 1/2 Needle USE directed with Josie. 12/29/22 Provider, Historical naloxone (NARCAN) 4 mg/spray Rougon, Non-Aerosol EMERGENCY USE ONLY: Administer 1 spray [...] MD Lab Results Component Value Date/Time WBC 13.4 (H) 11/05/2024 05:20 PM HGB 11.0 (L) 11/05/2024 05:20 PM HGBPOC 12.2 10/31/2024 06:38 AM HCT 36.3 11/05/2024 05:20 PM HCTPOC 37 (L) 10/31/2024 06:38 AM PLT 190 11/05/2024 05:20 PM MCV 96.0 11/05/2024 05:20 PM Lab Results Component Value Date/Time NA 142 11/05/2024 05:20 PM K 3.6 11/05/2024 05:20 PM CL 104 11/05/2024 05:20 PM CO2 26 11/05/2024 05:20 PM CA 8.8 11/05/2024 05:20 PM BUN 17 11/05/2024 05:20 PM CREAT 0.69 11/05/2024 05:20 PM GLUCOSE 168 (H) 11/05/2024 05:20 PM ANIONGAP 12 11/05/2024 05:20 PM BCRATIO SEE NOTE: 07/16/2023 10:52 AM Lab Results Component Value Date/Time TROPONIN 18 06/23/2023 11:20 AM Breath sounds reveal expiratory wheezes . Last chest x-ray reveals Diagnosis: See Reason for Exam The heart size is normal. The lungs are clear. No pneumothorax is seen. Impression: No evidence of infiltrates. Latest spirometry reveals: Unable to perform at this time A- prevent potential bronchospams P- Patient educated on purpose and technique of therapy. Based on above, patient will be placed on Q6 Xopenex and Albuterol MDI PRN . Will reassess patient status in 24 hours and PRN . Bernarda Win RCP * Gen AI ED Handoff - GENERATIVE AI HANDOFF NOTE - 11/05/2024 9:04 PM CDT SITUATION: Patient ( ) is a 59-year-old female who has been in the ER for 4 hours. She came to the ER due to shortness of breath. The patient's most recent care team on record included: Dilcia Bernstein; Reina Zafar. BACKGROUND: This patient has allergies to Ketorolac Tromethamine, Prochlorperazine, Propoxyphene, Tramadol, Codeine, Propoxyphene N-acetaminophen. ASSESSMENT: Patient's most recent vitals recorded in flowsheets were as follows: BP: 129/80 T: 98.2 F RR: 24 SPO2: 96% HR: 98 WT: LBS BMI: not available Most recent Glucose Value: 168. Completed: 2024-11-05 18:20. Last recorded oxygen source was nasal cannula. The patient presents with acute onset shortness of breath and left-sided chest pain, with a history of COPD, diabetes mellitus, hypertension, lung mass, congestive heart failure, and obesity. The patient has a mass in the right lung and reports chronic diarrhea. She has a history of anxiety, arthritis, atrial flutter, bipolar disorder, breast cancer, chronic hepatic failure, coronary artery disease, deep vein thrombosis, depression, emphysema, GERD, ischemic cardiomyopathy, neuropathy, NSTEMI, paroxysmal atrial fibrillation, pneumonia due to COVID-19, polycythemia, and vaginal cancer. The patient has difficult intravenous access and is on warfarin and oxygen therapy. RECOMMENDATION: Continue monitoring the patient's respiratory status and manage COPD exacerbation with BiPAP as needed. Ensure the patient is on a high fall risk plan due to her multiple comorbidities and history of recent ER visits. Administer medications as per MAR, including insulin for diabetes management. Monitor INR levels due to warfarin therapy. Consider a pulmonary consult for COPD management and a cardiology consult for heart-related issues. Ensure the patient is educated on the use of her rescue inhaler and other medications. Maintain oxygen therapy at 3 L/min as per home delivery settings. Monitor for any signs of infection or sepsis, given the questionable severe sepsis alert. Ensure pain management is addressed, as the patient reports continued pain. *This summary was created by neal HOANG. The responses are meant to enhance, not replace normal workflow. Please contact the ED nurse for any additional information.* * ED Bed Hold Comment Note - Reina Baig RN - 11/05/2024 4:22 PM CDT Bed: H Expected date: 11/05/24 Expected time: 4:09 PM Means of arrival: Comments: Triage documented in this encounter Plan of Treatment Upcoming Encounters Date Type Department Care Team (Late st Contact Info) Description 11/14/2024 3:30 PM CDT Office Visit [facility] Neurosurgery [address] [place] [phone] Jerson Salas PA [address] [place] [address] 01/12/2025 1:40 PM CDT Office Visit [facility] [address] [place] [phone] Tresa Stockton, [facility] [address] [place] [phone] 04/19/2025 10:30 AM PROTOTYPE FABRICATOR Office Visit [facility] Endocrinology [facility] [address] [place] [phone] James Lee MD [address] [place] [address] Gricel Mcgovern PA [address] [place] [address] Scheduled Referrals Name Type Priority Associated Diagnoses Orde r Schedule AMB REFERRAL TO FAMILY PRACTICE Outpatient Referral Routine Chronic obstructive pulmonary disease, unspecified COPD type (CMS/HCC) Ordered: 11/07/2024 AMB REFERRAL TO PULMONARY Outpatient Referral Routine Chronic obstructive pulmonary disease, unspecified COPD type (CMS/HCC) Ordered: 11/07/2024 documented as of this encounter Goals Goal Patient Goal Type Associated Problems Recent Progress Patient-Stated? Author Heart Failure Goal Care Plan Heart Failure Problem No Latonya Anguiano, MARGOT documented as of this encounter Procedures Procedure Name Priority Date/Time Associated Diagnosis Comments TELEMETRY REPORT 11/09/2024 3:07 PM CDT TELEMETRY REPORT 11/08/2024 3:01 AM CDT POC GLUCOSE Routine 11/07/2024 12:42 PM CDT POC GLUCOSE Routine 11/07/2024 7:02 AM CDT PROTIME-INR Routine 11/07/2024 4:10 AM CDT CBC WITHOUT DIFFERENTIAL Routine 11/07/2024 4:10 AM CDT POC GLUCOSE Routine 11/06/2024 8:43 PM CDT POC GLUCOSE Routine 11/06/2024 4:39 PM CDT POC GLUCOSE Routine 11/06/2024 11:35 AM CDT POC GLUCOSE Routine 11/06/2024 8:54 AM CDT CBC WITH DIFFERENTIAL Routine 11/06/2024 4:13 AM CDT PROTIME-INR Routine 11/06/2024 4:13 AM CDT BASIC METABOLIC PANEL Routine 11/06/2024 4:13 AM CDT RT ASSESS AND TREAT Routine 11/05/2024 1 0:31 PM CDT RT ASSESS AND TREAT Routine 11/05/2024 1 0:31 PM CDT COPD EDUCATION RT Routine 11/05/2024 10: 31 PM CDT EKG 12-LEAD Stat 11/05/2024 6:34 PM CDT RESPIRATORY PATHOGEN PCR PANEL Stat 11/05/2024 5:57 PM CDT PROTIME-INR Stat 11/05/2024 5:57 PM CDT XR CHEST PA OR AP 1 VW Stat 5:48 PM CDT CBC WITH DIFFERENTIAL Stat 11/05/2024 5:20 PM CDT BRAIN NATRIURETIC PEPTIDE, BNP OR PROBNP Stat 11/05/2024 5:20 PM CDT COMPREHENSIVE METABOLIC PANEL Stat 11/05/2024 5:20 PM CDT RESPIRATORY THERAPY COMMUNICATION Stat 11/05/2024 4:57 PM CDT CRITICAL CARE Routine 11/05/2024 4:16 PM CDT documented in this encounter Results * TELEMETRY REPORT (11/09/2024 3:07 PM CDT) us Provider Scanning ECG ORDERABLES Final Result * TELEMETRY REPORT (11/08/2024 3:01 AM CDT) us Provider Scanning ECG ORDERABLES Final Result * (ABNORMAL) POC GLUCOSE (11/07/2024 12:42 PM CDT) GLUCOSE POC 329(H) 74 - 99 mg/dL 11/07/2024 12:42 PM CDT [facility] SPECIMEN SOURCE, GLUCOSE POC Capillary 11/07/2024 12:42 PM CDT [facility] Blood, whole 11/07/2024 12:4 2 PM CDT 11/07/2024 12:52 PM CDT us Maida Blas MD POINT OF CARE TESTIN G Final Result [facility] CLIA # [id number] [address] [address] [place] [address] * (ABNORMAL) POC GLUCOSE (11/07/2024 7:02 AM CDT) [facility] [address] GLUCOSE POC 236(H) 74 - 99 mg/dL 11/07/2024 7:02 AM CDT [facility] SPECIMEN SOURCE, GLUCOSE POC Capillary 11/07/2024 7:02 AM CDT [facility] Blood, whole 11/07/2024 7:02 AM CDT 11/07/2024 7:10 AM CDT Maida Blas MD POINT OF CARE TESTIN G Final Result Performing Organization Address City/State/[facility] Co de Phone Number [facility] CLIA # [id number] [address] [address] * (ABNORMAL) CBC WITHOUT DIFFERENTIAL (11/07/2024 4:10 AM CDT) [facility] [address] WBC 10.2 4.8 - 10.8 K/uL 11/07/2024 4:41 AM CDT [facility] NRBCS 1(H) <1 % 11/07/2024 4:41 AM CDT [facility] RBC 3.51(L) 4.20 - 5.40 M/uL 11/07/2024 4:41 AM CDT [facility] HEMOGLOBIN 10.4(L) 12.0 - 16.0 g/dL 11/07/2024 4:41 AM CDT [facility] HEMATOCRIT 33.8(L) 36.0 - 46.0 % 11/07/2024 4:41 AM CDT [facility] MCV 96.3 84.0 - 103.0 fL 11/07/2024 4:41 AM CDT [facility] MCH 29.6 27.0 - 34.0 pg 11/07/2024 4:41 AM CDT [facility] MCHC 30.8 30.0 - 35.0 g/dL 11/07/2024 4:41 AM CDT [facility] PLATELETS 188 140 - 440 K/uL 11/07/2024 4:41 AM CDT [facility] MPV 10.8 8.9 - 12.8 fL 11/07/2024 4:41 AM CDT [facility] RDW 18.5(H) 11.0 - 14.5 % 11/07/2024 4:41 AM CDT [facility] RDW-STDEV 64.7(H) 37.0 - 54.0 fL 11/07/2024 4:41 AM CDT [facility] Blood Venipuncture / Unknown 11/07/2024 4:10 AM CDT 11/07/2024 4:30 AM CDT Nba Baig MD HEMATOLOGY ORDERABLES F inal Result [facility] CLIA # [id number] [address] [place] [address] [place], [place] [address] * (ABNORMAL) PROTIME-INR (11/07/2024 4:10 AM CDT) PROTIME 27.3(H) 12.7 - 14.9 Seconds 11/07/2024 4:42 AM CDT [facility] INR 2.4(H) 0.8 - 1.2 11/07/2024 4:42 AM CDT [facility] Blood Venipuncture / Unknown 11/07/2024 4:10 AM CDT 11/07/2024 4:30 AM CDT Narrative [facility] - 11/07/2024 4:42 AM CDT Expected Values for INR: DVT/PE [...] Goal INR 2.5; range 2.0 - 3.0 Nba Baig MD HEMATOLOGY ORDERABLES F inal Result Performing Organization Address [facility] Co de Phone Number [facility] CLIA # [id number] [address] [address] * (ABNORMAL) POC GLUCOSE (11/06/2024 8:43 PM CDT) GLUCOSE POC 422(HH) 74 - 99 mg/dL 11/06/2024 8:43 PM CDT [facility] SPECIMEN SOURCE, GLUCOSE POC Capillary 11/06/2024 8:43 PM CDT [facility] COMMENT, GLU POC Alerted Nurse/MARIELLA/DR 11/06/2024 8:43 PM CDT [facility] Blood, whole 11/06/2024 8:43 PM CDT 11/06/2024 10:04 PM CDT Maida Blas MD POINT OF CARE TESTIN G Final Result Performing Organization Address [facility] Co de Phone Number [facility] CLIA # [id number] [address] [address] * (ABNORMAL) POC GLUCOSE (11/06/2024 4:39 PM CDT) GLUCOSE POC 358(H) 74 - 99 mg/dL 11/06/2024 4:39 PM CDT [facility] SPECIMEN SOURCE, GLUCOSE POC Capillary 11/06/2024 4:39 PM CDT [facility] Blood, whole 11/06/2024 4:39 PM CDT 11/06/2024 4:50 PM CDT Maida Blas MD POINT OF CARE TESTIN G Final Result Performing Organization Address [facility]/ZIP Co de Phone Number [facility] CLIA # [id number] [address] [address] [place] [address] * (ABNORMAL) POC GLUCOSE (11/06/2024 11:35 AM CDT) GLUCOSE POC 294(H) 74 - 99 mg/dL 11/06/2024 11:35 AM CDT [facility] SPECIMEN SOURCE, GLUCOSE POC Capillary 11/06/2024 11:35 AM CDT [facility] Blood, whole 11/06/2024 11:3 5 AM CDT 11/06/2024 11:46 AM CDT Maida Blas MD POINT OF CARE TESTIN G Final Result Performing Organization Address [facility] Co de Phone Number [facility] CLIA # [id number] [address] [address] * (ABNORMAL) POC GLUCOSE (11/06/2024 8:54 AM CDT) GLUCOSE POC 385(H) 74 - 99 mg/dL 11/06/2024 8:54 AM CDT [facility] SPECIMEN SOURCE, GLUCOSE POC Capillary 11/06/2024 8:54 AM CDT [facility] Blood, whole 11/06/2024 8:54 AM CDT 11/06/2024 9:19 AM CDT us Maida Blas MD POINT OF CARE TESTIN G Final Result [facility] CLIA # [id number] [address] [address] * (ABNORMAL) PROTIME-INR (11/06/2024 4:13 AM CDT) Pathologist [facility] PROTIME 17.4(H) 12.7 - 14.9 Seconds 11/06/2024 5:19 AM CDT [facility] INR 1.4(H) 0.8 - 1.2 11/06/2024 5:19 AM CDT [facility] Blood Venipuncture / Unknown 11/06/2024 4:13 AM CDT 11/06/2024 5:08 AM CDT Narrative [facility] - 11/06/2024 5:19 AM CDT Expected Values for INR: DVT/PE [...] INR 2.5; range 2.0 - 3.0 us Nba Baig MD HEMATOLOGY ORDERABLES F inal Result [facility] CLIA # [id number] [address] [id number] * (ABNORMAL) BASIC METABOLIC PANEL (11/06/2024 4:13 AM CDT) Pathologist [facility] SODIUM 137 136 - 145 mmol/L 11/06/2024 5:41 AM T [facility] POTASSIUM 4.8 3.5 - 5.1 mmol/L 11/06/2024 5:41 AM [facility] CHLORIDE 103 98 - 107 mmol/L 11/06/2024 5:41 AM T [facility] CO2 22 22 - 29 mmol/L 11/06/2024 5:41 AM T [facility] CALCIUM 9.0 8.6 - 10.0 mg/dL 11/06/2024 5:41 AM T [facility] BUN 18 6 - 20 mg/dL 11/06/2024 5:41 AM T [facility] CREATININE 0.47(L) 0.51 - 0.95 mg/dL 11/06/2024 5:41 AM [facility] GLUCOSE 371(H) 74 - 99 mg/dL 11/06/2024 5:41 AM [facility] GFR >60 >=60 mL/min/1. 73 sq meter 11/06/2024 5:41 AM [facility] Comment:eGFR calculated with 2020 CKD-EPI equation. Vegetarian diet, extremely high or low muscle mass, and may affect results. Cystatin C with Glomerular Filtration Rate is a suitable alternative for these patients. ANION GAP 12 9 - 20 mmol/L 11/06/2024 5:41 AM [facility] Blood Venipuncture / Unknown 11/06/2024 4:13 AM CDT 11/06/2024 5:10 AM CDT us Nba Baig MD CHEMISTRY ORDERABLES Fi nal Result [facility] CLIA # [id number] [address] [address] [place] [address] * (ABNORMAL) CBC WITH DIFFERENTIAL (11/06/2024 4:13 AM CDT) [facility] [address] WBC 12.8(H) 4.8 - 10.8 K/uL 11/06/2024 5:35 AM [facility] NRBCS 1(H) <1 % 11/06/2024 5:35 AM [facility] RBC 3.70(L) 4.20 - 5.40 M/uL 11/06/2024 5:35 AM [facility] HEMOGLOBIN 11.0(L) 12.0 - 16.0 g/dL 11/06/2024 5:35 AM [facility] HEMATOCRIT 35.4(L) 36.0 - 46.0 % 11/06/2024 5:35 AM [facility] MCV 95.7 84.0 - 103.0 fL 11/06/2024 5:35 AM [facility] MCH 29.7 27.0 - 34.0 pg 11/06/2024 5:35 AM [facility] MCHC 31.1 30.0 - 35.0 g/dL 11/06/2024 5:35 AM [facility] PLATELETS 202 140 - 440 K/uL 11/06/2024 5:35 AM [facility] MPV 11.0 8.9 - 12.8 fL 11/06/2024 5:35 AM [facility] RDW 18.6(H) 11.0 - 14.5 % 11/06/2024 5:35 AM [facility] RDW-STDEV 63.5(H) 37.0 - 54.0 fL 11/06/2024 5:35 AM [facility] NEUTROPHILS 85(H) 42 - 75 % 11/06/2024 5:35 AM [facility] LYMPHOCYTES 10(L) 24 - 44 % 11/06/2024 5:35 AM [facility] MONOCYTES 3 2 - 10 % 11/06/2024 5:35 AM [facility] EOSINOPHILS 0 0 - 7 % 11/06/2024 5:35 AM CDT [facility] BASOPHILS 0 0 - 1 % 11/06/2024 5:35 AM CDT [facility] IMMATURE GRANULOCYTES 3(H) 0 - 2 % 11/06/2024 5:35 AM CDT [facility] NEUTROPHIL ABSOLUTE 10.87(H) 2.00 - 8.00 K/uL 11/06/2024 5:35 AM CDT [facility] LYMPHOCYTE ABSOLUTE 1.27 1.20 - 4.00 K/uL 11/06/2024 5:35 AM CDT [facility] MONOCYTE ABSOLUTE 0.32 0.10 - 0.60 K/uL 11/06/2024 5:35 AM CDT [facility] EOSINOPHIL ABSOLUTE 0.00 0.00 - 0.70 K/uL 11/06/2024 5:35 AM CDT [facility] BASOPHILS ABSOLUTE 0.04 0.00 - 0.20 K/uL 11/06/2024 5:35 AM CDT [facility] IMMATURE GRANULOCYTES ABSOLUTE 0.33(H) 0.00 - 0.10 K/uL 11/06/2024 5:35 AM CDT [facility] SMEAR REVIEWED: NA - Not Applicable 11/06/2024 5:35 AM CDT [facility] Blood Venipuncture / Unknown 11/06/2024 4:13 AM CDT 11/06/2024 5:08 AM CDT us Nba Baig MD HEMATOLOGY ORDERABLES F inal Result [facility] CLIA # [id number] [facility] [address] [address] [place], [place] [address] * EKG 12-LEAD (11/05/2024 6:34 PM CDT) 11/05/2024 6:34 PM CDT Narrative INTERFACE SYSTEM - 11/06/2024 1:10 PM [address]T [address] [address] Test Date: 2024-11-05 Pat Name: LE DIAZ Department: 11 Room: H H Gender: Female Him Coder: rohit : 1965 Requested By: Order Number: [id number] Reading : Echo Tapia Measurements Intervals [place] Rate: 97 P: 12 SC: 138 QRS: 42 QRSD: 82 T: -17 QT: 352 QTc: 447 Interpretive Statements Normal sinus rhythm Possible Inferior infarct, age undetermined Abnormal ECG Electronically Signed On 11-06-2024 13:10:48 CDT by Echo Tapia Procedure Note Provider, Historical - 11/06/[address] [address] Test Date: 2024-11-05 Pat Name: LE DIAZ Department: 11 Room: H H Gender: Female Him Coder: rhoit : 1965 Requested By: Order Number: [id number] Reading MD: Echo Tapia Measurements Intervals [place] Rate: 97 P: 12 SC: 138 QRS: 42 QRSD: 82 T: -17 QT: 352 QTc: 447 Interpretive Statements Normal sinus rhythm Possible Inferior infarct, age undetermined Abnormal ECG Electronically Signed On 11-06-2024 13:10:48 CDT by Echo Tapia us Aki Booth DO ECG ORDERABLES Final R esult INTERFACE SYSTEM Refer to clinic/hospital department * (ABNORMAL) PROTIME-INR (11/05/2024 5:57 PM CDT) PROTIME 22.4(H) 12.7 - 14.9 Seconds 11/05/2024 6:16 PM CDT [facility] INR 1.9(H) 0.8 - 1.2 11/05/2024 6:16 PM CDT [facility] Blood Venipuncture / Unknown 11/05/2024 5:57 PM CDT 11/05/2024 6:02 PM CDT Narrative [facility] - 11/05/2024 6:16 PM CDT Expected Values for INR: DVT/PE [...] Goal INR 2.5; range 2.0 - 3.0 Aki Booth DO HEMATOLOGY ORDERABLES F inal Result [facility] CLIA # [id number] [address] [place] [address] * RESPIRATORY PATHOGEN PCR PANEL (11/05/2024 5:57 PM CDT) [facility] [address] Respiratory Pathogen PCR Panel NOT DETECTED No respiratory pathogen nucleic acids detected. 11/05/2024 7:09 PM CDT [facility] COVID-19 PCR NOT DETECTED Not Detected 11/05/2024 7:09 PM CDT [facility] Upper Respiratory ENTIRE NASOPHARYNX / Unknown Collection / Unknown 11/05/2024 5:57 PM CDT 11/05/2024 6:02 PM CDT Peggy [facility] - 11/05/2024 7:09 PM CDT The Film Array Respiratory Panel (RP2.1) [...] pertussis Bordetella parapertussis Chlamydophila pneumoniae Mycoplasma pneumoniae Aki Booth DO MICROBIOLOGY - GENERAL ORDERABLES Final Result [facility] CLEMMETT # [id number] [address] [address] [place] [address] * XR CHEST PA OR AP 1 VW (11/05/2024 5:48 PM CDT) Anatomical Region Laterality Modality Chest Computed Radiogr aphy 11/05/2024 5:49 PM CDT Impressions 11/05/2024 6:12 PM CDT Impression: No evidence of infiltrates. Narrative 11/05/2024 6:12 PM CDT Exam: XR CHEST PA OR AP 1 VW Date/Time of Exam: 11/05/2024 5:48 PM Reason For Exam: Difficulty Breathing Diagnosis: See Reason for Exam The heart size is normal. The lungs are clear. No pneumothorax is seen. Procedure Note Scooby Mcgowan MD - 11/05/2024 Exam: XR CHEST PA OR AP 1 VW Date/Time of Exam: 11/05/2024 5:48 PM Reason For Exam: Difficulty Breathing Diagnosis: See Reason for Exam The heart size is normal. The lungs are clear. No pneumothorax is seen. Impression: No evidence of infiltrates. Aki Booth DO DIAGNOSTIC IMAGING ORDE RABLES Final Result * (ABNORMAL) BRAIN NATRIURETIC PEPTIDE, BNP OR PROBNP (11/05/2024 5:20 PM CDT) PROBNP, N TERMINAL 410(H) 0 - 125 pg/mL 11/05/2024 6:19 PM CDT [facility] Comment: INTERPRETIVE COMMENT based on diagnosis: Diagnostic [...] years: >1800 pg/mL Blood Venipuncture / Unknown 11/05/2024 5:20 PM CDT 11/05/2024 5:36 PM CDT Aki Booth DO CHEMISTRY ORDERABLES Fi nal Result [facility] CLIA # [id number] [address] [place] [address] * (ABNORMAL) COMPREHENSIVE METABOLIC PANEL (11/05/2024 5:20 PM CDT) Pathologist [facility] SODIUM 142 136 - 145 mmol/L 11/05/2024 6:19 PM CDT [facility] POTASSIUM 3.6 3.5 - 5.1 mmol/L 11/05/2024 6:19 PM CDT [facility] CHLORIDE 104 98 - 107 mmol/L 11/05/2024 6:19 PM CDT [facility] CO2 26 22 - 29 mmol/L 11/05/2024 6:19 PM CDT [facility] CALCIUM 8.8 8.6 - 10.0 mg/dL 11/05/2024 6:19 PM CDT [facility] BUN 17 6 - 20 mg/dL 11/05/2024 6:19 PM CDT [facility] CREATININE 0.69 0.51 - 0.95 mg/dL 11/05/2024 6:19 PM CDT [facility] GLUCOSE 168(H) 74 - 99 mg/dL 11/05/2024 6:19 PM CDT [facility] TOTAL PROTEIN 6.1(L) 6.4 - 8.3 g/dL 11/05/2024 6:19 PM CDT [facility] ALBUMIN 3.4(L) 3.5 - 5.2 g/dL 11/05/2024 6:19 PM CDT [facility] BILIRUBIN TOTAL 0.2 0.0 - 1.0 mg/dL 11/05/2024 6:19 PM CDT [facility] ALKALINE PHOSPHATASE 116(H) 35 - 104 U/L 11/05/2024 6:19 PM CDT [facility] AST 21 10 - 35 U/L 11/05/2024 6:19 PM CDT [facility] Comment:Hemolysis present. R esult may be falsely elevated. ALT 26 <=35 U/L 11/05/2024 6:19 PM CDT [facility] GFR >60 >=60 mL/min/1.7 3 sq meter 11/05/2024 6:19 PM T [facility] Comment:eGFR calculated with 2020 CKD-EPI equation. Vegetarian diet, extremely high or low muscle mass, and may affect results. Cystatin C with Glomerular Filtration Rate is a suitable alternative for these patients. ANION GAP 12 9 - 20 mmol/L 11/05/2024 6:19 PM T [facility] Blood Venipuncture / Unknown 11/05/2024 5:20 PM CDT 11/05/2024 5:36 PM CDT us Aki Booth DO CHEMISTRY ORDERABLES Fi nal Result [facility] CLIA # [id number] [facility] [address] * (ABNORMAL) CBC WITH DIFFERENTIAL (11/05/2024 5:20 PM CDT) WBC 13.4(H) 4.8 - 10.8 K/uL 11/05/2024 5:41 PM CDT [facility] NRBCS 2(H) <1 % 11/05/2024 5:41 PM CDT [facility] RBC 3.78(L) 4.20 - 5.40 M/uL 11/05/2024 5:41 PM [facility] HEMOGLOBIN 11.0(L) 12.0 - 16.0 g/dL 11/05/2024 5:41 PM [facility] HEMATOCRIT 36.3 36.0 - 46.0 % 11/05/2024 5:41 PM [facility] MCV 96.0 84.0 - 103.0 fL 11/05/2024 5:41 PM [facility] MCH 29.1 27.0 - 34.0 pg 11/05/2024 5:41 PM [facility] MCHC 30.3 30.0 - 35.0 g/dL 11/05/2024 5:41 PM [facility] PLATELETS 190 140 - 440 K/uL 11/05/2024 5:41 PM [facility] MPV 10.4 8.9 - 12.8 fL 11/05/2024 5:41 PM [facility] RDW 18.2(H) 11.0 - 14.5 % 11/05/2024 5:41 PM [facility] RDW-STDEV 64.8(H) 37.0 - 54.0 fL 11/05/2024 5:41 PM [facility] NEUTROPHILS 67 42 - 75 % 11/05/2024 5:41 PM [facility] LYMPHOCYTES 21(L) 24 - 44 % 11/05/2024 5:41 PM [facility] MONOCYTES 9 2 - 10 % 11/05/2024 5:41 PM [facility] EOSINOPHILS 1 0 - 7 % 11/05/2024 5:41 PM [facility] BASOPHILS 0 0 - 1 % 11/05/2024 5:41 PM [facility] IMMATURE GRANULOCYTES 3(H) 0 - 2 % 11/05/2024 5:41 PM [facility] NEUTROPHIL ABSOLUTE 8.96(H) 2.00 - 8.00 K/uL 11/05/2024 5:41 PM CDT [facility] LYMPHOCYTE ABSOLUTE 2.76 1.20 - 4.00 K/uL 11/05/2024 5:41 PM CDT [facility] MONOCYTE ABSOLUTE 1.13(H) 0.10 - 0.60 K/uL 11/05/2024 5:41 PM CDT [facility] EOSINOPHIL ABSOLUTE 0.09 0.00 - 0.70 K/uL 11/05/2024 5:41 PM CDT [facility] [facility] BASOPHILS ABSOLUTE 0.05 0.00 - 0.20 K/uL 11/05/2024 5:41 PM CDT [facility] IMMATURE GRANULOCYTES ABSOLUTE 0.37(H) 0.00 - 0.10 K/uL 11/05/2024 5:41 PM CDT [facility] SMEAR REVIEWED: NA - Not Applicable 11/05/2024 5:41 PM CDT [facility] Blood Venipuncture / Unknown 11/05/2024 5:20 PM CDT 11/05/2024 5:33 PM CDT Aki Booth DO HEMATOLOGY ORDERABLES F inal Result Performing Organization Address [facility]/State/[facility] Co de Phone Number [facility] # [id number] [address] [place] [phone] * Critical Care (11/05/2024 4:16 PM CDT) Narrative Aki Booth DO - 11/05/2024 4:16 PM CDT Aki Booth DO 11/06/2024 12:11 AM Critical Care Performed by: Aki Booth DO Authorized by: Aki Booth DO Critical care provider statement: Critical care time (minutes): 35 Critical care time was exclusive of: Separately [...] DO PROCEDURE/MINOR SURGICA L ORDERABLES Final Result documented in this encounter Visit Diagnoses Diagnosis COPD exacerbation ([facility])- Primary Obstructive chronic bronchitis with exacerbation Chronic obstructive pulmonary disease, unspecified COPD type ([facility]) Respiratory abnormalities Respiratory abnormality, unspecified Bipolar affective disorder ([facility]) Bipolar disorder, unspecified Former smoker Personal history of tobacco use, presenting hazards to health Essential hypertension Unspecified essential hypertension Obesity Obesity, unspecified Back pain Backache, unspecified Closed compression fracture of body of L1 vertebra ([facility]) Chronic anticoagulation Encounter for long-term (current) use of anticoagulants CAD (coronary atherosclerotic disease) Coronary atherosclerosis of unspecified type of vessel, kaw or graft Insulin dependent type 2 diabetes mellitus ([facility]) Type II or unspecified type diabetes mellitus without mention of complication, not stated as uncontrolled Acute on chronic hypoxic respiratory failure ([facility]/H[facility]) Chronic respiratory failure with hypoxia, on home O2 therapy ([facility]) History of splenectomy Other acquired absence of organ Mixed hyperlipidemia HEENA (generalized anxiety disorder) Generalized anxiety disorder History of pulmonary embolism Personal history of pulmonary embolism Centrilobular emphysema ([facility]) Other emphysema Chronic pain syndrome Opioid dependence ([facility]) Opioid type dependence, unspecified History of cancer of vagina Personal history of malignant neoplasm of other female genital organs History of breast cancer Personal history of malignant neoplasm of breast Anemia Anemia, unspecified Mass of left lung documented in this encounter Administered Medications Inactive Administered Medications - up to 3 most recent administrations Medication Order MAR Action Action Date Dose Rate Site albuterol sulfate 90 mcg/Actuation inhaler 2 Puff 2 Puff, Inhalation, EVERY 4 HOURS PRN RESPIRATORY, Starting on 11/05/24 at 2341, Until 11/07/24 at 1705, Shortness of Breath, Routine, Previous Med: Ventolin HFA 90 mcg/actuation inhaler - Orig Sig - Take 2 Puffs by inhalation every 6 hours as needed. aspirin (CARTER CHEWABLE) chewable tablet 81 mg 81 mg, Oral, DAILY, First dose on 11/06/24 at 0900, Until Discontinued, Routine, Previous Med: aspirin (CARTER CHEWABLE) 81 mg Tablet, Chewable - Orig Sig - Take 81 mg by mouth daily. Given 11/07/2024 8:37 AM CDT 81 mg Given 11/06/2024 9:00 AM CDT 81 mg atorvastatin (LIPITOR) tablet 40 mg 40 mg, Oral, DAILY AT BEDTIME, First dose on 11/05/24 at 2100, Until Discontinued, Routine, Previous Med: atorvastatin (LIPITOR) 40 mg tablet - Orig Sig - Take 40 mg by mouth daily at bedtime. Given 11/06/2024 8:48 PM CDT 40 mg Given 11/05/2024 11:06 PM CDT 40 mg calcium as CARBONATE (TUMS) 500 mg (200 mg elemental) chewable tablet 400 mg 400 mg, Oral, EVERY 6 HOURS PRN, 2 doses, Starting on 11/05/24 at 1938, Until Thu11/07/24 at 1705, Dyspepsia, Routine dextrose 5 % - sodium chloride 0.9 % infusion IV, at 40 mL/hr, SEE ADMIN INSTRUCTIONS, Starting on 11/06/24 at 0743, Until Thu11/07/24 at 1705, Routine dextrose 5 % in water 250 mL flush bag 25 mL 25 mL, IV, SEE ADMIN INSTRUCTIONS, Starting on 11/05/24 at 1938, Until Thu11/07/24 at 1705, Routine dextrose 50% (D50) syringe 12.5 Gram 12.5 Gram, IV, SEE ADMIN INSTRUCTIONS, Starting on 11/06/24 at 0743, Until Thu11/07/24 at 1705, Routine dextrose 50% (D50) syringe 25 Gram 25 Gram, IV, SEE ADMIN INSTRUCTIONS, Starting on 11/06/24 at 0743, Until Thu11/07/24 at 1705, Routine fentaNYL PF (SUBLIMAZE) 50 mcg/mL injection 50 mcg 50 mcg, IV, ONE TIME ONLY, 1 dose, On 11/05/24 at 1700, Routine Given 11/05/2024 5:20 PM CDT 50 mcg fluticasone furoate-vilanteroL (BREO ELLIPTA) 100-25 mcg/dose inhaler 1 Puff 1 Puff, Inhalation, DAILY RESPIRATORY, First dose on 11/06/24 at 0800, Until Discontinued, Routine, Previous Med: budesonide 160 mcg-glycopyr 9 mcg-formot 4.8 mcg/actuation HFA inhaler - Orig Sig - Take 2 Puffs by inhalation 2 times daily. Given 11/07/2024 7:33 AM CDT 1 Puff Given 11/06/2024 8:52 AM CDT 1 Puff furosemide (LASIX) tablet 80 mg 80 mg, Oral, TWO TIMES DAILY, First dose on 11/07/24 at 1200, Until Discontinued, Routine, Previous Med: furosemide (LASIX) 80 mg tablet - Orig Sig - Take 1 Tablet (80 mg) by mouth 2 times daily. Given 11/07/2024 12:43 PM CDT 80 mg glucagon HCL 1 mg/mL injection 1 mg 1 mg, IM, SEE ADMIN INSTRUCTIONS, Starting on 11/06/24 at 0743, Until Thu11/07/24 at 1705, Routine guaiFENesin (ROBITUSSIN) 100 mg/5 mL oral solution 200 mg 200 mg, Oral, EVERY 4 HOURS PRN, Starting on 11/05/24 at 2230, Until Thu11/07/24 at 1705, Other (See Comment), to thin secretions, Routine HYDROcodone-acetaminophen (NORCO) 10-325 mg per tablet 1 Tablet 1 Tablet, Oral, EVERY 6 HOURS PRN, Starting on 11/05/24 at 2215, Until Thu11/07/24 at 1159, Pain (See admin instructions), Pain, RoutineIndications:back pain Given 11/07/2024 7:33 AM CDT 1 Tablet Given 11/07/2024 1:34 AM CDT 1 Tablet Given 11/06/2024 7:35 PM CDT 1 Tablet HYDROcodone-acetaminophen (NORCO) 10-325 mg per tablet 1 Tablet 1 Tablet, Oral, EVERY 8 HOURS PRN, Starting on 11/07/24 at 1159, Until Thu11/07/24 at 1705, Pain (See admin instructions), Pain, RoutineIndications:back pain HYDROmorphone (PF) (DILAUDID) injection 0.5 mg 0.5 mg, IV, ONE TIME ONLY, 1 dose, On 11/05/24 at 1815, Routine Given 11/05/2024 6:40 PM CDT 0.5 mg HYDROmorphone (PF) (DILAUDID) injection 0.5 mg 0.5 mg, IV, EVERY 4 HOURS PRN, Starting on 11/05/24 at 1939, Until 11/06/24 at 2227, Pain, Severe, Pain, Moderate, Routine Given 11/06/2024 8:01 AM C DT 0.5 mg Given 11/06/2024 3:40 AM CDT 0.5 mg Given 11/05/2024 11:07 PM CDT 0.5 mg insulin glargine-yfgn injection 10 Units 10 Units, subCUT, TWO TIMES DAILY, First dose on 11/06/24 at 0745, Until Discontinued, Routine Given 11/07/2024 8:37 AM CDT 10 Units Arm, Left Upper Given 11/06/2024 8:46 PM CDT 10 Units Ar m, Left Given 11/06/2024 8:55 AM CDT 10 Units Ar m, Left Upper insulin lispro (HumaLOG,ADMELOG) injection 0-6 Units 0-6 Units, subCUT, THREE TIMES DAILY WITH MEALS, First dose on 11/06/24 at 0800, Until Discontinued, Routine Given 11/06/2024 8:48 PM CDT 6 Units Arm, Left Given 11/06/2024 4:41 PM CDT 5 Units Ar m, Right Upper Given 11/06/2024 11:36 AM CDT 3 Units A rm, Left Upper insulin lispro (HumaLOG,ADMELOG) injection 0-6 Units 0-6 Units, subCUT, FOUR TIMES DAILY WITH MEALS AND AT BEDTIME, First dose (after last modification) on 11/07/24 at 0800, Until Discontinued, Routine Given 11/07/2024 12:42 PM CDT 4 Units Arm, Right Upper Given 11/07/2024 7:34 AM CDT 2 Units Ar m, Right Upper insulin lispro (HumaLOG,ADMELOG) injection 5 Units 5 Units, subCUT, ONE TIME ONLY, 1 dose, On 11/06/24 at 0800, Routine Given 11/06/2024 8:56 AM CDT 5 Units Arm, Left Upper insulin lispro (HumaLOG,ADMELOG) injection 6 Units 6 Units, subCUT, ONE TIME ONLY, 1 dose, On 11/06/24 at 2100, Routine Given 11/06/2024 9:00 PM CDT 6 Units Arm, Right IPRATROPIUM 0.5 MG-ALBUTEROL 3 MG (2.5 MG BASE)/3 ML NEBULIZATION SOLN (CABINET OVERRIDE) 1 dose, Starting on 11/05/24 at 1634, Until 11/05/24 at 1636, J Luis Logan: cabinet override Given 11/05/2024 4:36 PM CDT 9 mL ipratropium-albuteroL (DUONEB) 0.5 mg-3 mg(2.5 mg base)/3 mL inhalation solution 3 mL 3 mL, Inhalation, EVERY 6 HOURS RESPIRATORY, First dose on [facility] 11/05/24 at 2030, Until Discontinued, Routine, Previous Med: ipratropium-albuteroL (DUONEB) 0.5 mg-3 mg(2.5 mg base)/3 mL Solution for Nebulization - Orig Sig - Take 3 mL by inhalation every 4 hours as needed for Shortness of Breath. Given 11/05/2024 11:24 PM CDT 3 mL isosorbide mononitrate (IMDUR) SR 24 hour tablet 30 mg 30 mg, Oral, DAILY, First dose on [place] 11/06/24 at 0900, Until Discontinued, Routine, Previous Med: isosorbide mononitrate (IMDUR) 30 mg Extended Release 24 hour tablet - Orig Sig - TAKE 1 TABLET BY MOUTH EVERY DAY Given 11/07/2024 8:36 AM CDT 30 mg Given 11/06/2024 8:58 AM CDT 30 mg levalbuterol (XOPENEX) 1.25 mg/3 mL inhalation solution 1.25 mg 1.25 mg, Inhalation, EVERY 6 HOURS RESPIRATORY, First dose (after last modification) on [place] 11/06/24 at 0700, Until Discontinued, Routine, Previous Med: levalbuterol (XOPENEX) 1.25 mg/3 mL Solution for Nebulization - Orig Sig - Take 1.25 mg by inhalation every 6 hours as needed for Shortness of Breath or Wheezing. Given 11/06/2024 8:23 PM CDT 1.25 mg Given 11/06/2024 8:21 AM CDT 1.25 mg levalbuterol (XOPENEX) 1.25 mg/3 mL inhalation solution 1.25 mg 1.25 mg, Inhalation, THREE TIMES DAILY RESPIRATORY, First dose (after last modification) on 11/07/24 at 0700, Until Discontinued, Routine, Previous Med: levalbuterol (XOPENEX) 1.25 mg/3 mL Solution for Nebulization - Orig Sig - Take 1.25 mg by inhalation every 6 hours as needed for Shortness of Breath or Wheezing. LORazepam (ATIVAN) tablet 0.5 mg 0.5 mg, Oral, EVERY 8 HOURS PRN, Starting on 11/05/24 at 2021, Until Thu11/07/24 at 1705, Anxiety, Routine, Previous Med: LORazepam (ATIVAN) 0.5 mg tablet - Orig Sig - Take 1 Tablet (0.5 mg) by mouth every 8 hours as needed for Anxiety. Given 11/07/2024 7:33 AM CDT 0.5 mg Given 11/06/2024 12:44 PM CDT 0.5 mg methylPREDNISolone sodium succinate (SOLU-Medrol) 125 mg in sterile water 2 mL injection 125 mg, IV, ONE TIME ONLY, 1 dose, On 11/05/24 at 1700, Routine Given 11/05/2024 5:51 PM CDT 125 mg metoprolol succinate (TOPROL XL) SR 24 hour tablet 25 mg 25 mg, Oral, DAILY, First dose on Thu11/06/24 at 0900, Until Discontinued, Routine, Previous Med: metoprolol succinate (TOPROL XL) 25 mg Extended Release 24 hour tablet - Orig Sig - Take 1 Tablet (25 mg) by mouth daily. Given 11/07/2024 8:36 AM CDT 25 mg Given 11/06/2024 8:58 AM CDT 25 mg naloxone (NARCAN) 0.4 mg/mL injection 0.1-0.4 mg 0.1-0.4 mg, IV, SEE ADMIN INSTRUCTIONS, Starting on 11/05/24 at 1938, Until 11/07/24 at 1705, Routine OLANZapine (ZyPREXA) tablet 10 mg 10 mg, Oral, DAILY AT BEDTIME, First dose on Thu11/05/24 at 2100, Until Discontinued, Routine, Previous Med: OLANZapine (ZyPREXA) 10 mg tablet - Orig Sig - Take 10 mg by mouth daily at bedtime. Given 11/06/2024 8:48 PM CDT 10 mg ondansetron (ZOFRAN) 4 mg/2 mL injection 4 mg 4 mg, IV, EVERY 6 HOURS PRN, Starting on 11/05/24 at 1938, Until 11/07/24 at 1705, Nausea/Emesis, Routine predniSONE (DELTASONE) tablet 40 mg 40 mg, Oral, DAILY WITH BREAKFAST, First dose on 11/06/24 at 0800, Until Discontinued, Routine Given 11/07/2024 7:33 AM CDT 40 mg Given 11/06/2024 8:58 AM CDT 40 mg ranolazine ER (RANEXA) SR 12 hour tablet 500 mg 500 mg, Oral, TWO TIMES DAILY, First dose on 11/05/24 at 2230, Until Discontinued, Routine, Previous Med: ranolazine ER (RANEXA) 500 mg Extended Release 12 hour tablet - Orig Sig - Take 1 Tablet (500 mg) by mouth every 12 hours. Given 11/07/2024 8:37 AM CDT 500 mg Given 11/06/2024 8:48 PM CDT 500 mg Given 11/06/2024 8:58 AM CDT 500 mg sacubitriL-valsartan (ENTRESTO) 24-26 mg tablet 1 Tablet 1 Tablet, Oral, TWO TIMES DAILY, First dose on 11/05/24 at 2100, Until Discontinued, Routine, Previous Med: sacubitriL-valsartan (ENTRESTO) 24-26 mg Tablet - Orig Sig - Take 1 Tablet by mouth 2 times daily. Given 11/07/2024 8:36 AM CDT 1 Tabl et Given 11/06/2024 8:48 PM CDT 1 Tablet Given 11/06/2024 8:58 AM CDT 1 Tablet sodium chloride 0.9 % flush bag 25 mL 25 mL, IV, SEE ADMIN INSTRUCTIONS, Starting on 11/05/24 at 1938, Until 11/07/24 at 1705, Routine sodium chloride flush injection 10 mL 10 mL, IV, EVERY 12 HOURS (BlD), First dose on 11/05/24 at 2100, Until Discontinued, Routine Given 11/07/2024 8:37 AM CDT 10 mL Given 11/06/2024 8:57 AM CDT 10 mL Given 11/05/2024 9:00 PM CDT 10 mL sodium chloride flush injection 10 mL 10 mL, IV, SEE ADMIN INSTRUCTIONS, Starting on 11/05/24 at 1938, Until 11/07/24 at 1705, Routine warfarin (COUMADIN) tablet 12 mg 12 mg, Oral, DAILY LATE, First dose on 11/05/24 at 2345, Until Discontinued, Routine, Previous Med: warfarin (COUMADIN) 6 mg tablet - Orig Sig - Take 2 Tablets (12 mg) by mouth late in the day. , Indication: TREATMENT for VTE/PE/DVT, Goal INR: 2 to 3 Given 11/06/2024 4:40 PM CDT 12 mg Given 11/06/2024 12:25 AM CDT 12 mg zinc OXIDE-cod liver oil (DESITIN) 40 % topical paste Topical, SEE ADMIN INSTRUCTIONS, Starting on 11/05/24 at 2209, Until Thu11/07/24 at 1705, Routine documented in this encounter Active and Recently Administered Medications Times are shown in CDT. Scheduled Medication Order 11/05/2024 11/06/2024 11/07/2024 aspirin (CARTER CHEWABLE) chewable tablet 81 mg 81 mg, Oral, DAILY, First dose on 11/06/24 at 0900, Until Discontinued, Routine, Previous Med: aspirin (CARTER CHEWABLE) 81 mg Tablet, Chewable - Orig Sig - Take 81 mg by mouth daily. 0900 (Given - Provider: Krys Joe RN) 0837 (Given - Provider: Krys Joe RN) atorvastatin (LIPITOR) tablet 40 mg 40 mg, Oral, DAILY AT BEDTIME, First dose on 11/05/24 at 2100, Until Discontinued, Routine, Previous Med: atorvastatin (LIPITOR) 40 mg tablet - Orig Sig - Take 40 mg by mouth daily at bedtime. 230 (Given - Provider: Reina Zafar RN) 2047 (Given - Provider: Мария Ventura RN) dextrose 5 % - sodium chloride 0.9 % infusion IV, at 40 mL/hr, SEE ADMIN INSTRUCTIONS, Starting on 11/06/24 at 0743, Until Thu11/07/24 at 1705, Routine dextrose 5 % in water 250 mL flush bag 25 mL 25 mL, IV, SEE ADMIN INSTRUCTIONS, Starting on 11/05/24 at 1938, Until Thu11/07/24 at 1705, Routine dextrose 50% (D50) syringe 12.5 Gram 12.5 Gram, IV, SEE ADMIN INSTRUCTIONS, Starting on 11/06/24 at 0743, Until Thu11/07/24 at 1705, Routine dextrose 50% (D50) syringe 25 Gram 25 Gram, IV, SEE ADMIN INSTRUCTIONS, Starting on 11/06/24 at 0743, Until Thu11/07/24 at 1705, Routine fentaNYL PF (SUBLIMAZE) 50 mcg/mL injection 50 mcg (COMPLETED) 50 mcg, IV, ONE TIME ONLY, 1 dose, On 11/05/24 at 1700, Routine 1720 (Given - Provider: Tisha Ma LPN) fluticasone furoate-vilanteroL (BREO ELLIPTA) 100-25 mcg/dose inhaler 1 Puff 1 Puff, Inhalation, DAILY RESPIRATORY, First dose on 11/06/24 at 0800, Until Discontinued, Routine, Previous Med: budesonide 160 mcg-glycopyr 9 mcg-formot 4.8 mcg/actuation HFA inhaler - Orig Sig - Take 2 Puffs by inhalation 2 times daily. 0852 (Given - Provider: Krys Joe RN) 0733 (Given - Provider: Krys Joe RN) furosemide (LASIX) tablet 80 mg 80 mg, Oral, TWO TIMES DAILY, First dose on Thu11/07/24 at 1200, Until Discontinued, Routine, Previous Med: furosemide (LASIX) 80 mg tablet - Orig Sig - Take 1 Tablet (80 mg) by mouth 2 times daily. 1243 (Given - Provider: Krys oJe RN) glucagon HCL 1 mg/mL injection 1 mg 1 mg, IM, SEE ADMIN INSTRUCTIONS, Starting on 11/06/24 at 0743, Until Thu11/07/24 at 1705, Routine HYDROmorphone (PF) (DILAUDID) injection 0.5 mg (COMPLETED) 0.5 mg, IV, ONE TIME ONLY, 1 dose, On 11/05/24 at 1815, Routine 1840 (Given - Provider: Tisha Anil, FAN BALANCER) insulin glargine-yfgn injection 10 Units 10 Units, subCUT, TWO TIMES DAILY, First dose on 11/06/24 at 0745, Until Discontinued, Routine 0855 (Given - Provider: Krys Joe RN - Comment: [phone] (Given - Provider: Мария Ventura RN) 0837 (Given - Provider: Krys Joe RN - Comment: [phone]) insulin lispro (HumaLOG,ADMELOG) injection 0-6 Units (CANCELED) 0-6 Units, subCUT, THREE TIMES DAILY WITH MEALS, First dose on 11/06/24 at 0800, Until Discontinued, Routine 0856 (Given - Provider: Krys Joe RN - Comment: [phone] (Given - Provider: Krys Joe RN - Comment: [phone] (Given - Provider: Krys Joe RN - Comment: [phone] (Given - Provider: Мария Ventura RN) insulin lispro (HumaLOG,ADMELOG) injection 0-6 Units 0-6 Units, subCUT, FOUR TIMES DAILY WITH MEALS AND AT BEDTIME, First dose (after last modification) on 11/07/24 at 0800, Until Discontinued, Routine 0734 (Given - Provider: Krys Joe RN - Comment: [phone] (Given - Provider: Krys Joe RN - Comment: [phone]) insulin lispro (HumaLOG,ADMELOG) injection 5 Units (COMPLETED) 5 Units, subCUT, ONE TIME ONLY, 1 dose, On 11/06/24 at 0800, Routine 0856 (Given - Provider: Krys Joe RN - Comment: [phone]) insulin lispro (HumaLOG,ADMELOG) injection 6 Units (COMPLETED) 6 Units, subCUT, ONE TIME ONLY, 1 dose, On 11/06/24 at 2100, Routine 2100 (Given - Provider: Мария Ventura RN) ipratropium-albuteroL (DUONEB) 0.5 mg-3 mg(2.5 mg base)/3 mL inhalation solution 3 mL (CANCELED) 3 mL, Inhalation, EVERY 6 HOURS RESPIRATORY, First dose on 11/05/24 at 2030, Until Discontinued, Routine, Previous Med: ipratropium-albuteroL (DUONEB) 0.5 mg-3 mg(2.5 mg base)/3 mL Solution for Nebulization - Orig Sig - Take 3 mL by inhalation every 4 hours as needed for Shortness of Breath. 222 (Canceled Entry - Provider: Bernarda Win RCP)232 (Given - Provider: Bernarda Win RCP) ipratropium-albuteroL (DUONEB) 0.5 mg-3 mg(2.5 mg base)/3 mL inhalation solution 3 mL 3 mL, Inhalation, ONE TIME ONLY RESPIRATORY, 1 dose, On 11/05/24 at 2345, Routine, Previous Med: ipratropium-albuteroL (DUONEB) 0.5 mg-3 mg(2.5 mg base)/3 mL Solution for Nebulization - Orig Sig - Take 3 mL by inhalation every 4 hours as needed for Shortness of Breath. 2345 (Canceled Entry - Provider: Bernarda Win RCP - Comment: already given 2323) isosorbide mononitrate (IMDUR) SR 24 hour tablet 30 mg 30 mg, Oral, DAILY, First dose on 11/06/24 at 0900, Until Discontinued, Routine, Previous Med: isosorbide mononitrate (IMDUR) 30 mg Extended Release 24 hour tablet - Orig Sig - TAKE 1 TABLET BY MOUTH EVERY DAY 0858 (Given - Provider: Krys Joe RN) 0836 (Given - Provider: Krys Joe RN) levalbuterol (XOPENEX) 1.25 mg/3 mL inhalation solution 1.25 mg (CANCELED) 1.25 mg, Inhalation, EVERY 6 HOURS RESPIRATORY, First dose (after last modification) on 11/06/24 at 0700, Until Discontinued, Routine, Previous Med: levalbuterol (XOPENEX) 1.25 mg/3 mL Solution for Nebulization - Orig Sig - Take 1.25 mg by inhalation every 6 hours as needed for Shortness of Breath or Wheezing. 0821 (Given - Provider: Krys Hercules RCP)1509 (Not Given - Provider: Krys Hercules RCP - Reason: Patient asleep)2022 (Given - Provider: Bernarda M Wooster, DIE CASTING MACHINE OPERATOR) 0200 (Canceled Entry - Provider: Krys Joe RN) levalbuterol (XOPENEX) 1.25 mg/3 mL inhalation solution 1.25 mg 1.25 mg, Inhalation, THREE TIMES DAILY RESPIRATORY, First dose (after last modification) on Thu11/07/24 at 0700, Until Discontinued, Routine, Previous Med: levalbuterol (XOPENEX) 1.25 mg/3 mL Solution for Nebulization - Orig Sig - Take 1.25 mg by inhalation every 6 hours as needed for Shortness of Breath or Wheezing. 0742 (Refused - Provider: Lex Loaiza RCP)[phone] (Refused - Provider: Lex Loaiza RCP) methylPREDNISolone sodium succinate (SOLU-Medrol) 125 mg in sterile water 2 mL injection (COMPLETED) 125 mg, IV, ONE TIME ONLY, 1 dose, On 11/05/24 at 1700, Routine 1751 (Given - Provider: Tisha Ma LPN) metoprolol succinate (TOPROL XL) SR 24 hour tablet 25 mg 25 mg, Oral, DAILY, First dose on 11/06/24 at 0900, Until Discontinued, Routine, Previous Med: metoprolol succinate (TOPROL XL) 25 mg Extended Release 24 hour tablet - Orig Sig - Take 1 Tablet (25 mg) by mouth daily. 0858 (Given - Provider: Krys Joe RN) 0836 (Given - Provider: Krys Joe RN) naloxone (NARCAN) 0.4 mg/mL injection 0.1-0.4 mg 0.1-0.4 mg, IV, SEE ADMIN INSTRUCTIONS, Starting on 11/05/24 at 1938, Until Thu11/07/24 at 1705, Routine OLANZapine (ZyPREXA) tablet 10 mg 10 mg, Oral, DAILY AT BEDTIME, First dose on 11/05/24 at 2100, Until Discontinued, Routine, Previous Med: OLANZapine (ZyPREXA) 10 mg tablet - Orig Sig - Take 10 mg by mouth daily at bedtime. 2100 (Not Given - Provider: Reina Zafar RN - Reason: Other - See Comment) 2047 (Given - Provider: Мария Ventura RN) predniSONE (DELTASONE) tablet 40 mg 40 mg, Oral, DAILY WITH BREAKFAST, First dose on 11/06/24 at 0800, Until Discontinued, Routine 0858 (Given - Provider: Krys Joe RN) 0733 (Given - Provider: Krys Joe RN) ranolazine ER (RANEXA) SR 12 hour tablet 500 mg 500 mg, Oral, TWO TIMES DAILY, First dose on 11/05/24 at 2230, Until Discontinued, Routine, Previous Med: ranolazine ER (RANEXA) 500 mg Extended Release 12 hour tablet - Orig Sig - Take 1 Tablet (500 mg) by mouth every 12 hours. 230 (Given - Provider: Reina Zafar RN) 0858 (Given - Provider: Krys Joe RN)2047 (Given - Provider: Мария Ventura, MARICARMEN) 0837 (Given - Provider: Krys Joe RN) sacubitriL-valsartan (ENTRESTO) 24-26 mg tablet 1 Tablet 1 Tablet, Oral, TWO TIMES DAILY, First dose on 11/05/24 at 2100, Until Discontinued, Routine, Previous Med: sacubitriL-valsartan (ENTRESTO) 24-26 mg Tablet - Orig Sig - Take 1 Tablet by mouth 2 times daily. 2306 (Given - Provider: Reina Zafar RN) 0858 (Given - Provider: Krys Joe RN)2047 (Given - Provider: Мария Ventura, MARICARMEN) 0836 (Given - Provider: Krys Joe RN) sodium chloride 0.9 % flush bag 25 mL 25 mL, IV, SEE ADMIN INSTRUCTIONS, Starting on 11/05/24 at 1938, Until Thu11/07/24 at 1705, Routine sodium chloride flush injection 10 mL 10 mL, IV, EVERY 12 HOURS (BlD), First dose on 11/05/24 at 2100, Until Discontinued, Routine 2100 (Given - Provider: Reina Zafar RN) 0857 (Given - Provider: Krys Joe RN)2100 (Not Given - Provider: Мария Ventura, MARICARMEN - Reason: Medication already given) 0837 (Given - Provider: Krys Joe RN) sodium chloride flush injection 10 mL 10 mL, IV, SEE ADMIN INSTRUCTIONS, Starting on 11/05/24 at 1938, Until Thu11/07/24 at 1705, Routine warfarin (COUMADIN) tablet 12 mg 12 mg, Oral, DAILY LATE, First dose on 11/05/24 at 2345, Until Discontinued, Routine, Previous Med: warfarin (COUMADIN) 6 mg tablet - Orig Sig - Take 2 Tablets (12 mg) by mouth late in the day. , Indication: TREATMENT for VTE/PE/DVT, Goal INR: 2 to 3 0025 (Given - Provider: Reina Zafar RN)1640 (Given - Provider: Krys Joe RN) zinc OXIDE-cod liver oil (DESITIN) 40 % topical paste Topical, SEE ADMIN INSTRUCTIONS, Starting on 11/05/24 at 2209, Until Thu11/07/24 at 1705, Routine PRN Medication Order 11/05/2024 11/06/2024 11/07/2024 albuterol sulfate 90 mcg/Actuation inhaler 2 Puff 2 Puff, Inhalation, EVERY 4 HOURS PRN RESPIRATORY, Starting on 11/05/24 at 2341, Until Thu11/07/24 at 1705, Shortness of Breath, Routine, Previous Med: Ventolin HFA 90 mcg/actuation inhaler - Orig Sig - Take 2 Puffs by inhalation every 6 hours as needed. calcium as CARBONATE (TUMS) 500 mg (200 mg elemental) chewable tablet 400 mg 400 mg, Oral, EVERY 6 HOURS PRN, 2 doses, Starting on 11/05/24 at 1938, Until Thu11/07/24 at 1705, Dyspepsia, Routine guaiFENesin (ROBITUSSIN) 100 mg/5 mL oral solution 200 mg 200 mg, Oral, EVERY 4 HOURS PRN, Starting on 11/05/24 at 2230, Until Thu11/07/24 at 1705, Other (See Comment), to thin secretions, Routine HYDROcodone-acetaminophe n (NORCO) 10-325 mg per tablet 1 Tablet (CANCELED) 1 Tablet, Oral, EVERY 6 HOURS PRN, Starting on 11/05/24 at 2215, Until Thu11/07/24 at 1159, Pain (See admin instructions), Pain, Routine 0024 (Given - Provider: Reina Zafar RN)[id number] (Given - Provider: Reina Zafar RN)1244 (Given - Provider: Krys Joe RN)1935 (Given - Provider: Мария Ventura, MARICARMEN) 0134 (Given - Provider: Мария Ventura, MARICARMEN)0733 (Given - Provider: Krys Joe RN) HYDROcodone-acetaminophe n (NORCO) 10-325 mg per tablet 1 Tablet 1 Tablet, Oral, EVERY 8 HOURS PRN, Starting on 11/07/24 at 1159, Until 11/07/24 at 1705, Pain (See admin instructions), Pain, Routine HYDROmorphone (PF) (DILAUDID) injection 0.5 mg (CANCELED) 0.5 mg, IV, EVERY 4 HOURS PRN, Starting on 11/05/24 at 1939, Until 11/06/24 at 2227, Pain, Severe, Pain, Moderate, Routine 2307 (Given - Provider: Reina Zafar, MARICARMEN) 0340 (Given - Provider: Reina Zafar RN)0801 (Given - Provider: Krys Joe RN) LORazepam (ATIVAN) tablet 0.5 mg 0.5 mg, Oral, EVERY 8 HOURS PRN, Starting on 11/05/24 at 2021, Until 11/07/24 at 1705, Anxiety, Routine, Previous Med: LORazepam (ATIVAN) 0.5 mg tablet - Orig Sig - Take 1 Tablet (0.5 mg) by mouth every 8 hours as needed for Anxiety. 1244 (Given - Provider: Krys Joe RN) 0733 (Given - Provider: Krys Joe RN) nitroglycerin (NITROSTAT) tablet 0.4 mg 0.4 mg, Sublingual, EVERY 5 MINUTES PRN, Starting on 11/05/24 at 2022, Until 11/07/24 at 1705, Chest Pain, Routine, Previous Med: nitroglycerin (NITROSTAT) 0.4 mg Tablet, Sublingual - Orig Sig - Place 0.4 mg under tongue. ondansetron (ZOFRAN) 4 mg/2 mL injection 4 mg 4 mg, IV, EVERY 6 HOURS PRN, Starting on 11/05/24 at 1938, Until 11/07/24 at 1705, Nausea/Emesis, Routine No Frequency Medication Order 11/05/2024 11/06/2024 11/07/2024 IPRATROPIUM 0.5 MG-ALBUTEROL 3 MG (2.5 MG BASE)/3 ML NEBULIZATION SOLN (CABINET OVERRIDE) (COMPLETED) 1 dose, Starting on 11/05/24 at 1634, Until 11/05/24 at 1636, J Luis Logan: cabinet override 1636 (Given - Provider: J Luis Logan RCP) documented in this encounter Additional Health Concerns Active Problems Noted Date Diagnosed Date Heart Failure Problem 05/12/2024 Infection Onset Date Last Indicated Resolved Time R/O Respiratory 11/05/2024 11/05/2024 11/05/2024 7 :09 PM CDT R/O GI Pathogen 11/05/2024 11/05/2024 11/06/2024 1 0:06 AM CDT documented as of this encounter Care Teams Tanning Solution Maker Relationship Specialty Start Date End Date Delta Wade MD [address] [place] [id number] PCP - General Family Practice 03/25/24 documented as of this encounter
--- OUTSIDE RECORDS SUMMARY | 2024-11-07 11:50 | XMS_ITS | Encounter Summary ---
Author Organization [facility] Address [address] [place] [address] Care Team Providers Care Animal Sitter Name Role Phone Delta Wade MD Primary Care Provider [phone] Encounter Details Date Type Department Care Team (Latest Contact Info) Description 11/07/2024 11:50 AM CDT - 11/07/2024 11:59 PM CDT Hospital Encounter [facility] Emergency Medical Services [address] [phone] Ambulance, [address] [id number] Discharge Disposition: Short term general hospital Social History Tobacco Use Types Packs/Day Years [...] often do you attend chur ch or sabianist services? More than 4 times per year 06/13/2019 Do you belong to any clubs o r organizations such as jain groups, unions, fraternal or athletic groups, or [...] worry about transportation for future doctor visits, sisal picker medication, etc.? No 2024 Housing Stability Answer [...] on file Legal Sex Female 11:49 PM EVP [employer] Gender Identity Not on file Sexual Orientation [...] unspecified HF chronicity, unspecified heart failure type ([facility]) TAKE 1 TABLET BY MOUTH EVERY DAY [...] :Chronic obstructive pulmonary disease, unspecified COPD type ([facility]),Oxygen dependent Face to Face completed within 30 days: yes Length of Need: 99 months By: Nasal Cannula Continuously at 3 L/min. 1 Each 4 naloxone (NARCAN) 4 mg/spray [place], Non-Aerosol EMERGENCY USE ONLY: Administer 1 spray (4 mg) in one nostril one time. May repeat in alternating nostrils every 2-3 min until responsive or EMS arrives. 2 Each 3 3 blood sugar diagnostic StripIndications: Type 2 diabetes mellitus without complication, without long-term current use of insulin ([facility]) Use to test blood glucose up to QID PRN symptoms. 100 Each 11 3 OneTouch Delica Plus Lancet 30 gauge USE TO test fasting blood glucose DAILY 3 Blood-Glucose Meter KitIndications:Ty pe 2 diabetes mellitus without complication, without long-term current use of insulin ([facility]) Use to test blood glucose up to TID PRN symptoms. 1 Each 3 doxycycline (MONODOX) 100 mg Capsule Take 1 Capsule (100 mg) by mouth every 12 hours for 3 days. 6 Capsule 5 08/21/20 25 predniSONE (DELTASONE) 20 mg tablet Take 2 Tablets (40 mg) by mouth daily with breakfast for 3 days. 6 Tablet 5 11/11/19 documented as of this encounter Plan of Treatment Upcoming Encounters Date Type Department Care Team (Late st Contact Info) Description 11/14/2024 3:30 PM CDT Office Visit [facility] Neurosurgery [address] [place] [address] Jerson Salas PA [address] [place] [address] 01/12/2025 1:40 PM CDT Office Visit [facility] [address] [place] [address] Tresa Stockton FNP [address] [place] [address] 04/19/2025 10:30 AM EVP [employer] Office Visit [facility] Endocrinology [facility] [address] [place] [address] James Lee MD [address] [place] [address] Gricel Mcgovern PA [address] [place] [address] documented as of this encounter Goals Goal Patient Goal Type Associated Problems Recent Progress Patient-Stated? Author Heart Failure Goal Care Plan Heart Failure Problem No Latonya Anguiano LPN documented as of this encounter Visit Diagnoses Not on filedocumented in this encounter Additional Health Concerns Active Problems Noted Date Diagnosed Date Heart Failure Problem 05/12/2024 documented as of this encounter Care Teams Animal Sitter Relationship Specialty Start Date End Date Delta Wade MD [address] [place] [address] [address] [place] [address] PCP - General Family Practice 03/25/24 documented as of this encounter
--- OUTSIDE RECORDS SUMMARY | 2024-11-08 04:05 | XMS_ITS | Encounter Summary ---
Author Organization [facility] Address [address] [place] [address] Care Team Providers Care Supervisor Assembly Name Role Phone Delta Wade MD Primary Care Provider Reason for Referral * Eval and Treat (5-7 Days) - Pending Review Specialty Diagnoses / Procedures Referred By Contac t Referred To Contact Diagnoses COPD with exacerbation (CMS/HCC) Procedures SC OFFICE/OUTPATIENT ESTABLISHED MOD MDM 30 MIN SC OFFICE/OUTPATIENT NEW MODERATE MDM 45 MINUTES Yaya Garcia MD [address] [place] [address] Phone: tel: fax: Referral ID Status Reason Start Date Expiration Date V isits Requested Visits Authorized [id number] Pending Review 11/10/2024 11/10/2025 1 1 Scheduling Instructions PCP in 3-5 days Reason for Visit * Reason Comments Shortness of Breath * Auth/Cert (Routine) Specialty Diagnoses / Procedures Referred By Contac t Referred To Contact Emergency Medicine [facility] [address] [place] [address] Phone: tel: fax: Referral ID Status Reason Start Date Expiration Date Visits Re quested Visits Authorized [id number] 1 1 Encounter Details Date Type Department Care Team (Latest Contact Info) Description 11/08/2024 4:05 AM CDT - 11/10/2024 2:03 PM CDT Hospital Encounter [address] [facility] [address] [place] [address] Jonny Bowers MD [address] [place], [place] [address] Yaya Garcia MD [address] [place] [address] COPD with exacerbation ([facility]) Discharge Disposition: Home or Self Care Social [...] often do you attend chur ch or episcopalian services? More than 4 times per year 06/13/2019 Do you belong to any clubs o r organizations such as worship groups, unions, fraternal or athletic groups, or [...] worry about transportation for future doctor visits, spanish moss picker medication, etc.? No 2024 Housing Stability [...] who hurts you emotionally and/or physically? 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 Gender Identity Not on file Sexual Orientation Not on file documented as of this encounter Last Filed Vital Signs Vital Sign Reading Time Taken Comments Blood Pressure 121/65 11/10/2024 8:36 AM CDT Pulse 76 11/10/2024 8:36 AM CDT Temperature 36.4 C (97.5 F) 11/10/2024 7:27 AM CDT Respiratory Rate 21 11/10/2024 7:27 AM CDT Oxygen Saturation 98% 11/10/2024 7:27 AM CDT Inhaled Oxygen Concentration - - Weight 105.3 kg (232 lb 2.3 oz) 025 12:55 PM CDT Height 166.4 cm (5' 5.5 ) 11/08/2024 12 :55 PM CDT Body Mass Index 38.04 11/08/2024 12:55 PM CDT documented in this encounter Discharge Summaries * Yaya Garcia MD - 11/10/2024 11:04 AM [facility]T [facility] Le Barnhart 59 y.o. female 1965 CSN: [id number] Date of Admission: 11/08/2024 Date of Discharge: 11/10/2024 Discharging Physician: Yaya Garcia MD PCP: Delta Wade MD LOS: 2 days Code Status at Discharge: Full Code Labs and studies from this hospitalization needing follow up: CBC and Basic Metabolic Panel (BMP) in 1 week Dispo: Home Follow-up: You must follow up with Delta Wade MD in 1 week Discharge Condition: stable Primary Discharge Diagnosis: COPD with exacerbation (CMS/HCC) Other Active medical issues also addressed during this admission: Active Hospital Problems Diagnosis Essential hypertension COPD with exacerbation (CMS/HCC) Obesity 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) Acute on chronic hypoxic respiratory failure (CMS/HCC) 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) History of pulmonary embolism History of splenectomy HEENA (generalized anxiety disorder) GERD (gastroesophageal reflux disease) Chronic pain syndrome Mixed hyperlipidemia Resolved Hospital Problems No resolved problems to display. HOSPITAL COURSE: Please see H and P for full details on admission, symptoms and initial care. 59-year-old female patient with history of anxiety, depression, atrial flutter, fibrillation, history of thromboembolism on anticoagulation with Coumadin, bipolar disorder, chronic pain, chronic systolic and diastolic CHF, type 2 diabetes mellitus, COPD, chronic respiratory failure with hypoxia on oxygen supplementation, GERD, status post splenectomy, hyperlipidemia, ischemic cardiomyopathy, coronary artery disease, hypertension, tobacco use was admitted for further evaluation of persistent shortness of breath and fall at home. Patient has had recent hospital admission and was discharged 1 day prior to this admission from the hospital. Patient had a fall at home and had another fall in the emergency room. Patient has nasal congestion, sinus pressure, postnasal drip and productive cough. Patient is not able to expectorate with cough. Patient denied any fever or chills. Patient was started on IV steroids. Bronchodilators were continued. Patient's pain medications and bowel regimen was continued. Patient's home dose of doxycycline was continued. Patient was placed on Mucinex and Tessalon. 11/09: Continues to have shortness of breath but is better. Continues to have back pain. Patient hassevere hyperglycemia requiring adjustment of Lantus, Premeal insulin. Continue high-dose sliding scale insulin coverage. Patient required multiple extra doses of insulin. Monitor glucose and adjust insulin regimen. Patient is having improved air entry. 11/10: Patient feels better, shortness of breath better. Patient is being discharged home in stable condition. Patient to complete course of doxycycline. Patient was prescribed prednisone 40 mg daily for 5 days. Patient was prescribed Mucinex and Tessalon. Patient was advised to follow strict diabetic diet to avoid hypoglycemia. Patient to follow-up with PCP in 1 week. MEDICATION CHANGES: Prednisone 40 mg daily for 5 days Mucinex tessalon PERTINENT LAB DATA ON DISCHARGE: Consultants: None Procedures performed: FOLLOW UP: Patient was instructed to follow up with Delta Wade MD , in 1 week. FOLLOW UP CONSULTANTS: As scheduled Future Appointments Date Time Provider Department Center 11/14/2024 3:30 PM Jerson Salas PA [facility] [place]/12/2025 1:40 PM Tresa Stockton FNP [facility] 04/19/2025 10:30 AM Gricel Mcgovern PA [facility] FOLLOW UP LAB TESTS: as needed DISCHARGE MEDICATIONS: Medication List START taking these medications benzonatate 100 mg capsule Commonly known as: TESSALON Take 1 Capsule (100 mg) by mouth every 4 hours as needed for Cough. Signed by: Dr. Myron Garcia Quantity: 60 Capsule Refills: 1 guaiFENesin 600 mg Extended Release Biphasic tablet Commonly known as: MUCINEX Take 1 Tablet (600 mg) by mouth every 12 hours for 14 days. Signed by: Dr. Myron Garcia Quantity: 28 Tablet Refills: 0 CONTINUE taking these medications acetaminophen [...] Myron Burk Quantity: 1 Each Refills: 0 mkrdngycts-ltzsglnznxdsid-tkujsgnsjy 160-9-4.8 mcg/actuation HFA Aerosol Inhaler Commonly known as: BREZTRI Take 2 Puffs by inhalation 2 times daily. Signed by: Dr. Pio Borges Quantity: 60 Each Refills: 1 doxycycline 100 mg Capsule Commonly known as: MONODOX Take 1 Capsule (100 mg) by mouth every 12 hours for 3 days. Signed by: Dr. Severo Blas Quantity: 6 Capsule Refills: 0 empagliflozin 10 mg tablet Commonly known as: JARDIANCE Take 1 Tablet (10 mg) by mouth daily in the morning. Signed by: Dr. Pio Anderson Quantity: 30 Tablet Refills: 0 fluorouraciL 5 % Cream Commonly known as: EFUDEX Refills: 0 furosemide 80 mg tablet Commonly known as: LASIX Take 1 Tablet (80 mg) by mouth 2 times daily. Signed by: Dr. Steven Fairchild Quantity: 60 Tablet Refills: 3 HYDROcodone-acetaminophen 7.5-325 mg Tablet Commonly known as: [...] 30 Tablet Refills: 0 naloxone 4 mg/spray [place], Non-Aerosol Commonly known as: NARCAN EMERGENCY USE [...] mouth daily with breakfast for 5 days. Signed by: Dr. Myron Garcia Quantity: 10 Tablet Refills: 0 ranolazine ER 500 mg Extended [...] Pio Borges Quantity: 30 Tablet Refills: 1 zinc OXIDE-cod liver oil 40 % Paste Commonly known as: DESITIN Apply to affected area see administration instructions. Signed by: Dr. Severo Blas Quantity: 57 Gram Refills: 0 Where to Get Your Medications These medications were sent to [address] [address] Hours: Thursday - Thursday: 7 am - 9 pm; Thursday - Thursday: 8 am - 4 pm benzonatate 100 mg capsule guaiFENesin 600 mg Extended Release Biphasic tablet predniSONE 20 mg tablet DIET: Cardiac Diet and Diabetic Diet. ACTIVITY LEVEL: activity as tolerated. Wound Care: None needed DISCHARGE EXAM: BP 121/65 Pulse 76 Temp 97.5 ??F (36.4 ??C) (Oral) Resp 21 Ht 5' 5.5 (1.664 m) Wt 105.3 kg (232 lb 2.3 oz) SpO2 98% BMI 38.04 kg/m?? Last documented weight: Weight: 105.3 kg (232 lb 2.3 oz) (11/08/24 1255) General appearance alert, cooperative, no distress, appears stated age, obese Head Normocephalic, without obvious abnormality, atraumatic Neck supple, symmetrical, trachea midline, no adenopathy, thyroid: not enlarged, symmetric, no tenderness/mass/nodules, no carotid bruit and no JVD Lungs Improved air entry Heart regular rate and rhythm, S1, S2 normal, no murmur, click, rub or gallop Abdomen soft, non-tender. Bowel sounds normal. No masses, No organomegaly Extremities extremities normal, atraumatic, no cyanosis or edema Skin Ecchymosis present Endocrine No abnormalities noted Hematological No splenomegaly, no lymphadenopathy Neurologic Normal CODE STATUS during this hospitalization: Full Code Does this patient require home health face to face documentation? No. Total time spent on discharge services today including examining and educating the patient and available family members, writing prescriptions and reviewing the discharge medication list, documentingthis discharge summary and coordinating outpatient care and follow up required was more than 35 minutes. documented in this encounter Discharge Instructions * Discharge Instructions* Satinder Casey RN - 11/10/2024 11:06 AM CDT MEDICAL DISCHARGE RECORD Diet: Heart healthy. Low sodium, fat, and cholesterol. Diabetic- Regular Activity: Increase activity as tolerated. Rest between activities. Wait at least 30 minutes after meals before walking. Have two rest periods daily. Take a nap every day. When to call Dr: Temperature above 101 Shortness of breath Symptoms that brought you to the hospital return New onset of pain not relieved by medication Follow up: PCP in 3-5 days Discharge to: Home *Stop smoking and/or do not allow anyone to smoke in your house or car.* If you need help to stop smoking call or the Health Information Team at [phone] or [phone]. * Attachments The following attachments cannot be sent through Care Everywhere. * Benzonatate (Bolivian) documented in this encounter Medications at Time of Discharge benzonatate (TESSALON) 100 mg capsule Take 1 Capsule (100 mg) by mouth every 4 hours as needed for Cough. 60 Capsule 1 5 guaiFENesin (MUCINEX) 600 mg Extended Release Biphasic tablet Take 1 Tablet (600 mg) by mouth every 12 hours for 14 days. 28 Tablet 5 11/25/19 25 predniSONE (DELTASONE) 20 mg tablet Take 2 Tablets (40 mg) by mouth daily with breakfast for 5 days. 10 Tablet 5 11/16/19 25 zinc OXIDE-cod liver oil (DESITIN) 40 [...] 1 Each 4 naloxone (NARCAN) 4 mg/spray [place], Non-Aerosol EMERGENCY USE ONLY: Administer 1 spray (4 mg) in one nostril one time. May repeat in alternating nostrils every 2-3 min until responsive or EMS arrives. 2 Each 3 3 blood sugar diagnostic StripIndications: Type 2 diabetes mellitus without complication, without long-term current use of insulin ([facility]) Use to test blood glucose up to QID PRN symptoms. 100 Each 11 3 OneTouch Delica Plus Lancet 30 gauge USE TO test fasting blood glucose DAILY 3 Blood-Glucose Meter KitIndications:Ty pe 2 diabetes mellitus without complication, without long-term current use of insulin ([facility]) Use to test blood glucose up to TID PRN symptoms. 1 Each 3 doxycycline (MONODOX) 100 mg Capsule Take 1 Capsule (100 mg) by mouth every 12 hours for 3 days. 6 Capsule 5 11/11/19 25 documented as of this encounter Progress Notes * Yaya Garcia MD - 11/09/2024 7:51 PM CDT [facility] Hospitalist/Internal Medicine Progress note Room/Bed: [address] [place] [address] Patient name: Le Barnhart Date of : 1965 LOS: LOS: 1 day HOSPITAL COURSE SUMMARY: 59-year-old female patient with history of anxiety, depression, atrial flutter, fibrillation, history of thromboembolism on anticoagulation with Coumadin, bipolar disorder, chronic pain, chronic systolic and diastolic CHF, type 2 diabetes mellitus, COPD, chronic respiratory failure with hypoxia on oxygen supplementation, GERD, status post splenectomy, hyperlipidemia, ischemic cardiomyopathy, coronary artery disease, hypertension, tobacco use was admitted for further evaluation of persistent shortness of breath and fall at home. Patient has had recent hospital admission and was discharged 1 day prior to this admission from the hospital. Patient had a fall at home and had another fall in the emergency room. Patient has nasal congestion, sinus pressure, postnasal drip and productive cough. Patient is not able to expectorate with cough. Patient denied any fever or chills. Patient was started on IV steroids. Bronchodilators were continued. Patient's pain medications and bowel regimen was continued. Patient's home dose of doxycycline was continued. Patient was placed on Mucinex and Tessalon. 11/09: Continues to have shortness of breath but is better. Continues to have back pain. Patient hassevere hyperglycemia requiring adjustment of Lantus, Premeal insulin. Continue high-dose sliding scale insulin coverage. Patient required multiple extra doses of insulin. Monitor glucose and adjust insulin regimen. Patient is having improved air entry. CONSULTANTS: SUBJECTIVE: Continues to have shortness of breath Continues to have back pain Able to cough up phlegm ROS: No headache, confusion, weakness of limbs No fever or chills No chest pain no palpitations, lightheadedness, syncope No abdominal pain no nausea, vomiting No urinary complaints No edema feet OBJECTIVE: Temp (24hrs), Av.9 ??F (36.6 ??C), Min:97 ??F (36.1 ??C), Max:98.6 ??F (37 ??C) BP 133/74 (BP Location: Right arm, Patient Position (BP): Supine) Pulse 81 Temp 97 ??F (36.1 ??C) (Oral) Resp 20 Ht 5' 5.5 (1.664 m) Wt 105.3 kg (232 lb 2.3 oz) SpO2 94% BMI 38.04 kg/m?? Intake/Output Summary (Last 24 hours) at 11/09/20241950 Last data filed at 11/09/2024 1700 Gross per 24 hour Intake 1450 ml Output 3602 ml Net -2152 ml Last documented weight: Weight: 105.3 kg (232 lb 2.3 oz) (11/08/24 1255) EXAM: General appearance alert, cooperative, no distress, appears stated age, obese Head Normocephalic, without obvious abnormality, atraumatic Neck supple, symmetrical, trachea midline, no adenopathy, thyroid: not enlarged, symmetric, no tenderness/mass/nodules, no carotid bruit and no JVD Lungs Improving air entry Heart regular rate and rhythm, S1, S2 normal, no murmur, click, rub or gallop Abdomen soft, non-tender. Bowel sounds normal. No masses, No organomegaly Extremities extremities normal, atraumatic, no cyanosis or edema Skin Ecchymosis present Endocrine No abnormalities noted Hematological No splenomegaly, no lymphadenopathy Neurologic Normal LABORATORY: Recent Labs 11/07/24 0410 11/08/24 0420 11/09/24 0125 WBC 10.2 10.3 10.8 HGB 10.4* 11.2* 12.3 HCT 33.8* 35.9* 38.4 PLT 188 209 207 Recent Labs 11/08/24 0420 11/09/24 0125 NA 143 142 K 4.0 4.1 CL 103 98 CO2 30* 27 CA 9.7 10.3* BUN 27* 33* CREAT 0.69 0.81 GLUCOSE 312* 344* Recent Labs 11/08/24 0420 11/09/24 0125 TOTALPROTEIN 6.6 7.4 ALBUMIN 3.7 4.2 BILITOTAL 0.2 0.3 ALKPHOS 122* 128* AST 18 16 ALT 31 33 Recent Labs 11/07/24 0410 11/08/24 042 INR 2.4* 2.3* PT 27.3* 26.0* No results for input(s): CPK , CKMB , TROPONIN in the last 72 hours. Diagnostic testing reviewed by me: Medications reviewed by me Current Facility-Administered Medications: [COMPLETED] morphine 4 mg/mL injection 2 mg, 2 mg, IV, ONE time only, Luzma Romero, , 2 mg at 11/09/24 0514 insulin glargine-yfgn injection 40 Units, 40 Units, subCUT, BID, Yaya Garcia MD, 40 Units at 11/09/24 0848 insulin lispro (HumaLOG,ADMELOG) injection 22 Units, 22 Units, subCUT, TID WITH meals, Yaya Garcia MD, 22 Units at 11/09/24 1737 methylPREDNISolone sodium succinate (SOLU-Medrol) 40 mg in sterile water 1 mL injection, 40 mg, IV,every 12 hours (2 times daily), Yaya Garcia MD LORazepam (ATIVAN) tablet 0.5 mg, 0.5 mg, Oral, every 8 hours PRN, Yaya Garcia MD doxycycline hyclate (VIBRAMYCIN) capsule 100 mg, 100 mg, Oral, every 12 hours (2 times daily), Yaya Garcia MD, 100 mg at 11/09/24 0841 aspirin (CARTER CHEWABLE) chewable tablet 81 mg, 81 mg, Oral, daily, Yaya Garcia MD, 81 mg at 11/09/24 0842 warfarin (COUMADIN) tablet 12 mg, 12 mg, Oral, daily LATE, Yaya Garcia MD, 12 mg at 11/09/241735 atorvastatin (LIPITOR) tablet 40 mg, 40 mg, Oral, daily BEDTIME, Yaya Garcia MD, 40 mg at 11/08/242004 furosemide (LASIX) tablet 80 mg, 80 mg, Oral, BID, Yaya Garcia MD, 80 mg at 11/09/24 08 isosorbide mononitrate (IMDUR) SR 24 hour tablet 30 mg, 30 mg, Oral, daily, Yaya Garcia MD, 30 mg at 11/09/24 08 metoprolol succinate (TOPROL XL) SR 24 hour tablet 25 mg, 25 mg, Oral, daily, Yaya Garcia MD, 25 mg at 11/09/24 08 nitroglycerin (NITROSTAT) tablet 0.4 mg, 0.4 mg, Sublingual, every 5 minutes PRN, Yaya Garcia MD ranolazine ER (RANEXA) SR 12 hour tablet 500 mg, 500 mg, Oral, every 12 hours, Yaya Garcia MD, 500 mg at 11/09/24 0842 sacubitriL-valsartan (ENTRESTO) 24-26 mg tablet 1 Tablet, 1 Tablet, Oral, BID, Yaya Garcia MD, 1 Tablet at 11/09/24 0841 empagliflozin (JARDIANCE) tablet 10 mg, 10 mg, Oral, daily EARLY, Yaya Garcia MD, 10 mg at11/09/24 0514 albuterol sulfate 90 mcg/Actuation inhaler 2 Puff, 2 Puff, Inhalation, resp, every 4 hours PRN, Yaya Garcia MD OLANZapine (ZyPREXA) tablet 10 mg, 10 mg, Oral, daily BEDTIME, Yaya Garcia MD, 10 mg at 11/08/242009 methocarbamoL (ROBAXIN) tablet 500 mg, 500 mg, Oral, every 6 hours PRN, Yaya Garcia MD potassium CHLORIDE (KLOR-CON) SR tablet 20 mEq, 20 mEq, Oral, BID WITH meals, Yaya Garcia MD, 20 mEq at 11/09/24 1736 sodium chloride flush injection 10 mL, 10 mL, IV, every 12 hours (2 times daily), Yaya Garcia MD, 10 mL at 11/09/24 0842 sodium chloride flush injection 10 mL, 10 mL, IV, see admin instructions, Yaya Garcia MD sodium chloride 0.9 % flush bag 25 mL, 25 mL, IV, see admin instructions, Yaya Garcia MD dextrose 5 % in water 250 mL flush bag 25 mL, 25 mL, IV, see admin instructions, Yaya Garcia MD naloxone (NARCAN) 0.4 mg/mL injection 0.1-0.4 mg, 0.1-0.4 mg, IV, see admin instructions, Yaya Garcia MD acetaminophen (TYLENOL) tablet 650 mg, 650 mg, Oral, every 6 hours PRN, Yaya Garcia MD ondansetron (ZOFRAN) 4 mg/2 mL injection 4 mg, 4 mg, IV, every 6 hours PRN, Yaya Garcia MD aluminum - magnesium - simethicone (MYLANTA) 200-200-20 mg/5 mL oral suspension 30 mL, 30 mL, Oral,every 2 hours PRN, Yaya Garcia MD sennosides-docusate sodium (SENNA-S) 8.6-50 mg per tablet 1 Tablet, 1 Tablet, Oral, BID, Yaya Garcia MD, 1 Tablet at 11/09/24 0841 magnesium HYDROXIDE (MILK OF MAGNESIA) oral suspension 30 mL, 30 mL, Oral, daily PRN OR bisacodyL (DULCOLAX) rectal suppository 10 mg, 10 mg, Rectal, daily PRN, Yaya Garcia MD melatonin tablet 3 mg, 3 mg, Oral, at bedtime PRN, Yaya Garcia MD dextrose 5 % - sodium chloride 0.9 % infusion, , IV, see admin instructions, Yaya Garcia MD dextrose 50% (D50) syringe 12.5 Gram, 12.5 Gram, IV, see admin instructions, Yaya Garcia MD dextrose 50% (D50) syringe 25 Gram, 25 Gram, IV, see admin instructions, Yaya Garcia MD glucagon HCL 1 mg/mL injection 1 mg, 1 mg, IM, see admin instructions, Yaya Garcia MD insulin lispro (HumaLOG,ADMELOG) injection 0-18 Units, 0-18 Units, subCUT, TID WITH meals, Yaya Garcia MD, 18 Units at 11/09/24 1220 insulin lispro (HumaLOG,ADMELOG) injection 0-9 Units, 0-9 Units, subCUT, daily BEDTIME, Yaya Garcia MD guaiFENesin (MUCINEX) SR tablet 600 mg, 600 mg, Oral, every 12 hours (2 times daily), Yaya Garcia MD, 600 mg at 11/09/24 0842 benzonatate (TESSALON) capsule 100 mg, 100 mg, Oral, every 4 hours PRN, Yaya Garcia MD HYDROcodone-acetaminophen (NORCO) 10-325 mg per tablet 1 Tablet, 1 Tablet, Oral, every 4 hours PRN,Yaya Garcia MD, 1 Tablet at 11/09/24 1736 ipratropium-albuteroL (DUONEB) 0.5 mg-3 mg(2.5 mg base)/3 mL inhalation solution 3 mL, 3 mL, Inhalation, resp, every 12 hours, Yaya Garcia MD, 3 mL at 11/09/24 1925 umeclidinium (INCRUSE ELLIPTA) 62.5 mcg/actuation inhaler 1 Puff, 1 Puff, Inhalation, resp, daily, Yaya Garcia MD fluticasone furoate-vilanteroL (BREO ELLIPTA) 100-25 mcg/dose inhaler 1 Puff, 1 Puff, Inhalation, resp, daily, Yaya Garcia MD zinc OXIDE-cod liver oil (DESITIN) 40 % topical paste, , Topical, daily PRN, Yaya Garcia MD [COMPLETED] morphine 4 mg/mL injection 2 mg, 2 mg, IV, every 4 hours PRN, Ronak Cortes MD, 2 mg at 11/08/24 2351 [DISCONTINUED] methylPREDNISolone sodium succinate (SOLU-Medrol) 40 mg in sterile water 1 mL injection, 40 mg, IV, every 6 hours, Yaya Garcia MD, 40 mg at 11/09/24 0514 [DISCONTINUED] insulin glargine-yfgn injection 40 Units, 40 Units, subCUT, daily BEDTIME, Yaya Garcia MD, 40 Units at 11/08/242053 [DISCONTINUED] insulin lispro (HumaLOG,ADMELOG) injection 15 Units, 15 Units, subCUT, TID WITH meals, Yaya Garcia MD, 15 Units at 11/08/24 172 [DISCONTINUED] MIDAZOLAM (PF) 1 MG/ML INJECTION SOLUTION (CABINET OVERRIDE), , , , [DISCONTINUED] FENTANYL (PF) 50 MCG/ML INJECTION SOLUTION (CABINET OVERRIDE), , , , [DISCONTINUED] KETAMINE 10 MG/ML INJECTION SOLUTION (CABINET OVERRIDE), , , , [DISCONTINUED] MAGNESIUM SULFATE 2 GRAM/50 ML (4 %) IN WATER INTRAVENOUS PIGGYBACK (CABINET OVERRIDE), , , , ASSESSMENT AND PLAN: Principal Problem: COPD with exacerbation (CMS/[facility]) Active Problems: Mixed hyperlipidemia Chronic pain syndrome HEENA (generalized anxiety disorder) GERD (gastroesophageal reflux disease) History of splenectomy History of pulmonary embolism 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) Acute on chronic hypoxic respiratory failure (CMS/HCC) 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) Obesity Essential hypertension COPD with acute exacerbation Patient is having improved air entry Started Ring IV steroids Continue p.o. doxycycline that patient is on Scheduled and as needed bronchodilators Mucinex and Tessalon Oxygen supplementation Acute on chronic hypoxic respiratory failure Continue oxygen supplementation Wean off to home dose Chronic combined systolic and diastolic congestive failure Continue patient's home medications Patient is euvolemic Anxiety, depression, bipolar disorder Continue home medications Type 2 diabetes mellitus Patient is having hyperglycemia on IV steroids Required multiple extra doses of insulin Increase the dose of Lantus to 40 units twice daily Increased Premeal insulin to 22 units 3 times daily Continue high-dose sliding scale insulin coverage Monitor glucose and adjust insulin regimen Recent Labs 11/08/242 11/09/24 0721 11/09/24 1101 11/09/24 1712 GLUCPOC 237* 351* 369* 126* History of thromboembolism Continue anticoagulation with Coumadin Recurrent falls Therapy evaluations Fall precautions Hypertension Continue antihypertensive medications Chronic pain Patient has degenerative disc disease Pain regimen and bowel regimen Will avoid IV pain medications unless patient has breakthrough or severe pain DVT prophylaxis: Patient on Coumadin, therapeutic Gastritis prevention: PPI Outpatient follow up: PCP Anticipated Disposition Location: Home Timeframe: 3 to 4 days from admission Criteria: Clinical improvement Education/DME/Equipment Needs: Understanding of illness: Patient: Reasonable Primary family contact: Advanced Directive/DPOA: Code status: Full Code Patient admitted with COPD exacerbation and developed severe hyperglycemia requiring multiple extrainsulin doses after she was started on IV steroids. Increase the dose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 Patient is speaking in 3-4 word sentences. She does have a prolonged expiratory phase. She is not moving air well. When there is a good waveform the patient's oxygen saturation is 97%. Differential diagnosis to include but not limited to: COPD exacerbation, respiratory failure, viralURI, pneumonia, spontaneous pneumothorax, recurrent PE I will check labs, ABG, chest x-ray, give the patient 3 DuoNebs in the first hour, IV Solu-Medrol. I will check a respiratory panel. Per hospitalist DC summary the patient was admitted on 10/31/2024 and discharged on 11/04/2024 for COPD exacerbation. It was noted she had been admitted once before already this month from October 26 through October 29. She was discharged home to follow-up with pulmonology in 2 weeks. When she was discharged she was discharged on Lovenox as well as her Coumadin. She was readmitted on 31 October. In the ED on the second visit she says she fell out of her car and fell onto her face and was complaining of left-sided chest pain and continuously asked for pain medications. She had a CT of her head that showed nothing acute. She had a CTA of her chest that did not show any new PEs or right heart strain.She did have a masslike consolidation in the left lung similar to previous CT. Cardiology was consulted due to her chest pain. Patient appeared anxious and continuously asked for pain medication. During admission her INR improved to greater than 2 so the Lovenox was stopped. She did complain of pain to her shoulder and back but that improved. On the she demanded to be discharged. She did complete 5 days of steroids and antibiotics while in the hospital. Despite diabetic education the patient continued to snack on chips and soda. CTA of the chest dated 10/31/2024 was read as: IMPRESSION: 1. Evaluation of the segmental and [...] identified. 5. Additional incidental findings as above. 4:19 AM Chest x-ray shows poor aspiration. No definite pneumothorax seen. No definite pneumonia seen. 5:55 AM Patient's white count is 10.3. Hemoglobin is 11.2. Platelets are 209. 58 segs. proBNP is 360. Chemistry shows a creatinine 0.69. CO2 of 30. Glucose 312. INR is 2.3. ABG shows a pH of 7.46, PaO2 of 83, pCO2 of 45, bicarb of 32, base excess of 8 Respiratory panel is negative. 6:[address] Garcia, hospitalist: will admit, med tele full Medical Decision Making Amount and/or Complexity of Data Reviewed Labs: ordered. Radiology: ordered and independent interpretation performed. ECG/medicine tests: ordered. Risk Prescription drug management. Decision regarding hospitalization. Clinical Scoring & Consults Medications Administered During the ED Stay from 11/08/2024 0405 to 11/08/2024 0728 Date/Time Order Dose Route Action 11/08/2024 0422 CDT methylPREDNISolone sodium succinate (SOLU-Medrol) 125 mg in sterile water 2 mL injection 125 mg IV Given 11/08/2024 0410 CDT ipratropium-albuteroL (DUONEB) 0.5 mg-3 mg(2.5 mg base)/3 mL inhalation solution 3 mL 3 mL Inhalation Given 11/08/2024 0410 CDT ipratropium-albuteroL (DUONEB) 0.5 mg-3 mg(2.5 mg base)/3 mL inhalation solution 3 mL 3 mL Inhalation Given 11/08/2024 0410 CDT ipratropium-albuteroL (DUONEB) 0.5 mg-3 mg(2.5 mg base)/3 mL inhalation solution 3 mL 3 mL Inhalation Given 11/08/2024 0625 CDT IPRATROPIUM 0.5 MG-ALBUTEROL 3 MG (2.5 MG BASE)/3 ML NEBULIZATION SOLN (CABINETOVERRIDE) 3 mL Given . New Prescriptions for this Encounter LAST VS BP: (!) 146/81 (11/08/24 07), Heart Rate: 96 bpm (11/08/24699), Resp: 23 (11/08/24 0700), Pulse: 97 (11/08/24699), Temp: (not recorded), Temp src: (not recorded), SpO2: 97 % (11/08/24699) CLINICAL IMPRESSION Diagnosis Diagnosis Comment Added By Time Added COPD with exacerbation ([facility]) [J44.1] Jonny Bowers MD 11/08/2024 7:28 AM DISPOSITION, EDUCATION AND MEDICATION RECONCILIATION Medications reconciled. See after visit summary for patient education on discharged patients. ED Disposition ED Disposition Admit Condition Stable User Jonny Bowers MD Date/Time ThuNov 08, 2024 6:37 AM Comment -- ATTESTATION STATEMENTS The times documented are the time of computer entry, not necessarily the time the event occurred This note was transcribed using an automated dictation software. Efforts have been made to assure accuracy of the wood lather. Any obvious errors or omissions should be clarified with the author ofthe document. Diagnosis Diagnosis Comment Added By Time Added COPD with exacerbation ([facility]) [J44.1] Jonny Bowers MD 11/08/2024 7:28 AM documented in this encounter Miscellaneous Notes * Care Plan - Harika Mendoza RN - 11/10/2024 2:01 PM CDT IV to LUE dc'd, tip intact, dressing applied. DC instructions reviewed with pt. Pt taken to main entrance via w/c, accompanied by personal belongings and friends. Pathway Day 2 - Current (INTERDIS PW: HYPERGLYCEMIA, ADULT) Metabolic: Maintain glucose between 110-180 mg/dL when receiving subcutaneous insulin and between 110-160 mg/dL when receiving IV insulin. Outcome: Met Nutrition Management: Patient maintaining appropriate carbohydrate selections with each meal. Outcome: Met Symptom Management: Patient denies signs and symptoms of hyperglycemic or hypoglycemic events Outcome: Met Problem: Pain, Potential/Actual Goal: Verbalizes/displays acceptable comfort level or baseline comfort level Description: 11/10/2024 1356 by Harika Mendoza RN Outcome: Resolved 11/10/2024 0943 by Harika Mendoza, RN Outcome: Shift Focus Problem: Infection Risk/Actual Goal: Infection Risk/Actual: Infection [...] and through discharge Description: Outcome: Resolved Problem: Respiratory Goal: Achieve optimal respiratory function by discharge and/or maintain baseline function 11/10/2024 1356 by Harika Mendoza RN Outcome: Resolved 11/10/2024 0943 by Harika Mendoza RN Outcome: Shift Focus Problem: Nutrition/Endocrine Goal: Achieve optimal nutrition and fluid status to meet metabolic needs throughout hospitalization 11/10/2024 1356 by Harika Mendoza RN Outcome: Resolved 11/10/2024 09 by Harika Mendoza RN Outcome: Shift Focus Problem: Violence, Potential/Actual Goal: Child Care Director: Demonstrates ability to control behavior as evidenced by reduction of violence by discharge. Outcome: Resolved Problem: Gastrointestinal Goal: Achieve optimal gastrointestinal function by discharge or maintain baseline function Outcome: Resolved Problem: Genitourinary/Renal Goal: Achieve optimal genitourinary and renal function by discharge or maintain baseline function Outcome: Resolved Problem: Musculoskeletal Goal: Achieve optimal musculoskeletal function by discharge or maintain baseline function Outcome: Resolved Problem: Skin Goal: Maintain skin integrity and/or promote wound healing by discharge Outcome: Resolved * Care Plan - Dedra Shannon LPN - 11/09/2024 5:20 PM CDT Shift Summary High blood glucose was identified early in the shift, and insulin was administered per provider orders. Severe lower back pain was reported and managed with HYDROcodone-acetaminophen, resulting in improved comfort. CHG shower and perineal care were completed after initial refusals, supporting infection preventionefforts. Safety measures, including fall risk armband and assisted ambulation, were maintained throughout the shift. Overall, comfort, safety, respiratory status, and nutrition goals were supported during the shift. Verbalizes/displays acceptable comfort level or baseline comfort level: Lower back pain was reported as severe in the morning and early afternoon, but after administration of HYDROcodone-acetaminophen, comfort was noted and pain was not reported by the end of the shift. Infection Risk/Actual: Infection prevention, control, or resolution by discharge: CHG shower and perineal care were completed after initial refusals, and skin integrity findings of ecchymosis and excoriation remained unchanged throughout the shift. Safety/Fall: Absence of fall, injury, harm during hospitalization: Fall risk armband remained in place, safety checks were completed, and ambulation continued with assistance without incident. Achieve optimal respiratory function by discharge and/or maintain baseline function: Respiratory rate and SpO2 fluctuated slightly but remained within a similar range, breath sounds stayed diminished, and oxygen therapy continued via nasal cannula at 3 L/min. Achieve optimal nutrition and fluid status to meet metabolic needs throughout hospitalization: Oralintake was 100% at breakfast with 450 mL consumed, diet tolerance was excellent, and bowel movements were regular with large amounts of formed and soft brown stool. * Care Plan - Nayely Taveras RN - 11/09/2024 9:53 AM CDT Care Management Initial Assessment Initial Discharge Planning Assessment completed. Discussed Care Management's role and Discharge planning. Does the patient have family and/or a caregiver that is willing, able and available to assist if needed? Yes - Name/Relation:Hannah and Marcin, Friends Comments: CM met with patient at bedside, CM initial assessment completed. Patient lives at home with friends, patient states she has some difficulty at home caring for herself and her friends help as much as they can. Patient is asking if she can have a choreworker at home, CM explained to patientshe can apply for medicaid relay worker through medicaid Patient Discharge Planning Goal: want to be able to go home Patient will potentially discharge to a SNF/NH? No Care Management visited with: patient via in person. Prior to admission, patient resides at: friend/relative home. Patient resides in a 1 story home with 6 stairs to enter. Patient's bedroom and bathroom are located on the same floor. Prior to admission, living arrangements: family/friend. Prior to admission, patient's functional level:independent; uses wheeled walker for mobility; needsassistance with iADLs: bathing, dressing, transportation, medication management, and housekeeping Community Ambulator: yes Prior to admission, the patient has the following DME? Yes wheeled walker and oxygen 3L/min continuous Services in the home/community: none Receives hemodialysis? No Emergency contact(s): Extended Emergency Contact Information Primary Emergency Contact: CHERRY MARIE Mobile Relation: Friend Secondary Emergency Contact: Huang Burch Mobile Relation: None Lumber Scaler needed? No Prescription coverage: yes Preferred Pharmacy verified: [id number] - [place], [place] - [address] [facility] Insurance coverage verified: Payor: MEDICAID / Plan: MEDICAID [place] / Product Type: Medicaid / Secondary Insurance:N/A Medicaid Status: no spend down Has VA Benefits: no Employment Status: not employed PCP verified as: Delta Wade MD Patient has had a stay at an acute care hospital in the last 30 days. Recent Falls?: Last Known Fall: Within the last month Plan for transportation at discharge: Friend POV vs cab voucher Care Management contact information provided. Care Management will continue to follow and assist asneeded. * Care Plan - Kamille Dan RN - 11/09/2024 4:43 AM CDT Shift Summary Pain was managed with two administrations of HYDROcodone-acetaminophen and two administrations of morphine, including one dose in [facility]. Oxygen therapy was maintained via nasal cannula, and respiratory status remained consistent with noescalation in support. Safety checks were completed and no falls or injuries were documented. Laboratory results showed elevated glucose and some abnormal CBC values, but no documentation of infection symptoms. Overall, comfort and respiratory goals were supported, and no adverse safety events occurred duringthe shift. Verbalizes/displays acceptable comfort level or baseline comfort level: Pain management included administration of HYDROcodone-acetaminophen and morphine, with two doses of HYDROcodone-acetaminophen and two doses of morphine given during the shift, which may have contributed to improved comfort; pain was assessed using a number scale but no specific pain scores were documented. Infection Risk/Actual: Infection prevention, control, or resolution by discharge: No abnormal temperature was recorded and WBC count was slightly elevated; neutrophil count was high and lymphocyte count was low, but no documentation of infection symptoms was present. Safety/Fall: Absence of fall, injury, harm during hospitalization: Safety checks were completed andno falls or injuries were documented during the shift. Achieve optimal respiratory function by discharge and/or maintain baseline function: Respiratory status remained stable with SpO2 at 94% on nasal cannula, and dyspnea on exertion was noted; no new BIPAP was initiated and oxygen therapy continued. * Gen AI ED Handoff - GENERATIVE AI HANDOFF NOTE - 11/08/2024 12:49 PM CDT SITUATION: Patient ( ) is a 59-year-old female who has been in the ER for 8 hours. She came to the ER due to shortness of breath. BACKGROUND: This patient has allergies to Ketorolac Tromethamine, Prochlorperazine, Propoxyphene, Tramadol, Codeine, Propoxyphene N-acetaminophen. ASSESSMENT: Patient's most recent vitals recorded in flowsheets were as follows: BP: 145/92 T: F RR: 29 SPO2: 98% HR: 102 WT: LBS BMI: not available Most recent Glucose Value: 493. Completed: 2024-11-08 12:08. Last recorded oxygen source was nasal cannula. The patient has a history of COPD, CHF, CAD, non-STEMI, systolic and diastolic heart failure, pneumonia, PE, hypertension, hyperlipidemia, type 2 diabetes, and morbid obesity. She is on 3 L home O2 and has been experiencing shortness of breath, head congestion, runny nose, sinus pressure, postnasal drip, and a severe productive cough. The patient has a history of falls and is on blood thinners. She has discoloration on her arms and legs, and her glucose level is elevated at 312. The patient has a prolonged expiratory phase and is not moving air well. RECOMMENDATION: Admit the patient for further monitoring and management of COPD exacerbation. Administer 3 DuoNebs in the first hour and IV Solu-Medrol. Check labs, ABG, chest x-ray, and a respiratory panel. Ensure the patient is on a high fall risk plan due to her history of falls. Monitor glucose levels closely due to elevated glucose and history of type 2 diabetes. Continue home O2 therapy at 3 L. Educate the patient on the importance of using the call light and not ambulating without assistance. Consult pulmonology for follow-up care. Ensure pain management is appropriate and does not compromise respiratory status. *This summary was created by generative AI. The responses are meant to enhance, not replace normal workflow. Please contact the ED nurse for any additional information.* documented in this encounter Plan of Treatment Upcoming Encounters Date Type Department Care Team (Late st Contact Info) Description 11/14/2024 3:30 PM CDT Office Visit [facility] Neurosurgery [address] [place] [phone] Jerson Salas PA [address] [place] [phone] 224- 01/12/2025 1:40 PM CDT Office Visit [facility] [address] [place] [address] Tresa Stockton, [facility] [address] [place] [phone] 120- 04/19/2025 10:30 AM 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, [place] [address] Gricel Mcgovern PA [address] [place] [phone] Scheduled Referrals Name Type Priority Associated Diagnoses Orde r Schedule AMB REFERRAL TO FAMILY PRACTICE Outpatient Referral Routine COPD with exacerbation ([facility]) Ordered: 11/10/2024 documented as of this encounter Goals Goal Patient Goal Type Associated Problems Recent Progress Patient-Stated? Author Heart Failure Goal Care Plan Heart Failure Problem No Latonya Anguiano MARGOT documented as of this encounter Procedures Procedure Name Priority Date/Time Associated Diagnosis Comments TELEMETRY REPORT 11/11/2024 2:10 AM CDT POC GLUCOSE Routine 11/10/2024 11:59 AM CDT CBC WITH DIFFERENTIAL Routine 11/10/2024 9:33 AM CDT COMPREHENSIVE METABOLIC PANEL Routine 11/10/2024 9:33 AM CDT POC GLUCOSE Routine 11/10/2024 7:09 AM CDT POC GLUCOSE Routine 11/09/2024 8:56 PM CDT POC GLUCOSE Routine 11/09/2024 5:12 PM CDT POC GLUCOSE Routine 11/09/2024 11:01 AM CDT POC GLUCOSE Routine 11/09/2024 7:21 AM CDT CBC WITH DIFFERENTIAL Routine 11/09/2024 1:25 AM CDT COMPREHENSIVE METABOLIC PANEL Routine 11/09/2024 1:25 AM CDT POC GLUCOSE Routine 11/08/2024 8:52 PM CDT XR LUMBAR SPINE 2 OR 3 VW Routine 11/08/2024 8:30 PM CDT POC GLUCOSE Routine 11/08/2024 5:49 PM CDT POC GLUCOSE Routine 11/08/2024 5:03 PM CDT POC GLUCOSE Stat 11/08/2024 11:58 AM CDT POC GLUCOSE Stat 11/08/2024 10:02 AM CDT RT ASSESS AND TREAT Stat 11/08/2024 7 :53 AM CDT RESPIRATORY PATHOGEN PCR PANEL Stat 11/08/2024 4:36 AM CDT BLOOD GAS ARTERIAL Stat 11/08/2024 4: 34 AM CDT PROTIME-INR Stat 11/08/2024 4:21 AM CDT CBC WITH DIFFERENTIAL Stat 11/08/2024 4:20 AM CDT BRAIN NATRIURETIC PEPTIDE, BNP OR PROBNP Stat 11/08/2024 4:20 AM CDT COMPREHENSIVE METABOLIC PANEL Stat 11/08/2024 4:20 AM CDT XR CHEST PA OR AP 1 VW Stat 4:15 AM CDT documented in this encounter Results * TELEMETRY REPORT (11/11/2024 2:10 AM CDT) us Provider Scanning ECG ORDERABLES Final Result * (ABNORMAL) POC GLUCOSE (11/10/2024 11:59 AM CDT) GLUCOSE POC 170(H) 74 - 99 mg/dL 11/10/2024 11:59 AM CDT [facility] SPECIMEN SOURCE, GLUCOSE POC Capillary 11/10/2024 11:59 AM CDT [facility] Blood, whole 11/10/2024 11:5 9 AM CDT 11/10/2024 12:08 PM CDT Yaya Garcia MD POINT OF CARE TESTING Jana l Result [facility] CLIA # [id number] [address] [place] [address] [place] [address] * (ABNORMAL) COMPREHENSIVE METABOLIC PANEL (11/10/2024 9:33 AM CDT) [facility] SODIUM 142 136 - 145 mmol/L 11/10/2024 10:11 AM CDT [facility] POTASSIUM 3.8 3.5 - 5.1 mmol/L 11/10/2024 10:11 AM CDT [facility] CHLORIDE 99 98 - 107 mmol/L 11/10/2024 10:11 AM CDT [facility] CO2 28 22 - 29 mmol/L 11/10/2024 10:11 AM T [facility] CALCIUM 9.8 8.6 - 10.0 mg/dL 11/10/2024 10:11 AM T [facility] BUN 37(H) 6 - 20 mg/dL 11/10/2024 10:11 AM T [facility] CREATININE 0.76 0.51 - 0.95 mg/dL 11/10/2024 10:11 AM T [facility] GLUCOSE 299(H) 74 - 99 mg/dL 11/10/2024 10:11 AM T [facility] TOTAL PROTEIN 6.7 6.4 - 8.3 g/dL 11/10/2024 10:11 AM T [facility] ALBUMIN 3.8 3.5 - 5.2 g/dL 11/10/2024 10:11 AM T [facility] BILIRUBIN TOTAL 0.2 0.0 - 1.0 mg/dL 11/10/2024 10:11 AM T [facility] ALKALINE PHOSPHATASE 114(H) 35 - 104 U/L 11/10/2024 10:11 AM T [facility] AST 15 10 - 35 U/L 11/10/2024 10:11 AM T [facility] ALT 29 <=35 U/L 11/10/2024 10:11 AM T [facility] GFR >60 >=60 mL/min/1.7 3 sq meter 11/10/2024 10:11 AM CDT [facility] Comment:eGFR calculated with 2020 CKD-EPI equation. Vegetarian diet, extremely high or low muscle mass, and may affect results. Cystatin C with Glomerular Filtration Rate is a suitable alternative for these patients. ANION GAP 15 9 - 20 mmol/L 11/10/2024 10:11 AM CDT [facility] Blood Venipuncture / Unknown 11/10/2024 9:33 AM CDT 11/10/2024 9:39 AM CDT us Yaya Garcia MD CHEMISTRY ORDERABLES Final Result [facility] CLIA # [id number] [facility] [address] * (ABNORMAL) CBC WITH DIFFERENTIAL (11/10/2024 9:33 AM CDT) WBC 11.3(H) 4.8 - 10.8 K/uL 11/10/2024 9:47 AM CDT [facility] NRBCS 3(H) <1 % 11/10/2024 9:47 AM CDT [facility] RBC 4.18(L) 4.20 - 5.40 M/uL 11/10/2024 9:47 AM CDT [facility] HEMOGLOBIN 12.5 12.0 - 16.0 g/dL 11/10/2024 9:47 AM CDT [facility] HEMATOCRIT 40.3 36.0 - 46.0 % 11/10/2024 9:47 AM CDT [facility] MCV 96.4 84.0 - 103.0 fL 11/10/2024 9:47 AM CDT [facility] MCH 29.9 27.0 - 34.0 pg 11/10/2024 9:47 AM CDT [facility] MCHC 31.0 30.0 - 35.0 g/dL 11/10/2024 9:47 AM [facility] PLATELETS 221 140 - 440 K/uL 11/10/2024 9:47 AM [facility] MPV 10.8 8.9 - 12.8 fL 11/10/2024 9:47 AM [facility] RDW 19.2(H) 11.0 - 14.5 % 11/10/2024 9:47 AM [facility] RDW-STDEV 67.0(H) 37.0 - 54.0 fL 11/10/2024 9:47 AM [facility] NEUTROPHILS 77(H) 42 - 75 % 11/10/2024 9:47 AM [facility] LYMPHOCYTES 12(L) 24 - 44 % 11/10/2024 9:47 AM [facility] MONOCYTES 9 2 - 10 % 11/10/2024 9:47 AM [facility] EOSINOPHILS 0 0 - 7 % 11/10/2024 9:47 AM [facility] BASOPHILS 0 0 - 1 % 11/10/2024 9:47 AM [facility] IMMATURE GRANULOCYTES 1 0 - 2 % 11/10/2024 9:47 AM [facility] NEUTROPHIL ABSOLUTE 8.70(H) 2.00 - 8.00 K/uL 11/10/2024 9:47 AM [facility] LYMPHOCYTE ABSOLUTE 1.35 1.20 - 4.00 K/uL 11/10/2024 9:47 AM [facility] MONOCYTE ABSOLUTE 1.04(H) 0.10 - 0.60 K/uL 11/10/2024 9:47 AM [facility] EOSINOPHIL ABSOLUTE 0.00 0.00 - 0.70 K/uL 11/10/2024 9:47 AM [facility] BASOPHILS ABSOLUTE 0.02 0.00 - 0.20 K/uL 11/10/2024 9:47 AM [facility] IMMATURE GRANULOCYTES ABSOLUTE 0.15(H) 0.00 - 0.10 K/uL 11/10/2024 9:47 AM CDT [facility] SMEAR REVIEWED: NN - No Action Needed 11/10/2024 9:47 AM CDT [facility] Blood Venipuncture / Unknown 11/10/2024 9:33 AM CDT 11/10/2024 9:39 AM CDT Yaya Garcia MD HEMATOLOGY ORDERABLES Jana l Result Performing Organization Address City/[facility]/ZIP Co de Phone Number [facility] CLIA # [id number] [address] [address] [place] [address] * (ABNORMAL) POC GLUCOSE (11/10/2024 7:09 AM CDT) GLUCOSE POC 325(H) 74 - 99 mg/dL 11/10/2024 7:09 AM CDT [facility] SPECIMEN SOURCE, GLUCOSE POC Capillary 11/10/2024 7:09 AM CDT [facility] Blood, whole 11/10/2024 7:09 AM CDT 11/10/2024 7:16 AM CDT Yaya Garcia MD POINT OF CARE TESTING Jana l Result Performing Organization Address [facility] Co de Phone Number [facility] CLIA # [id number] [address] [address] * (ABNORMAL) POC GLUCOSE (11/09/2024 8:56 PM CDT) GLUCOSE POC 187(H) 74 - 99 mg/dL 11/09/2024 8:56 PM CDT [facility] SPECIMEN SOURCE, GLUCOSE POC Capillary 11/09/2024 8:56 PM CDT [facility] Blood, whole 11/09/2024 8:56 PM CDT 11/09/2024 10:44 PM CDT Yaya Garcia MD POINT OF CARE TESTING Jana l Result [facility] CLIA # [id number] [id number] [place] [address] * (ABNORMAL) POC GLUCOSE (11/09/2024 5:12 PM CDT) GLUCOSE POC 126(H) 74 - 99 mg/dL 11/09/2024 5:12 PM CDT [facility] SPECIMEN SOURCE, GLUCOSE POC Capillary 11/09/2024 5:12 PM CDT [facility] Blood, whole 11/09/2024 5:12 PM CDT 11/09/2024 5:20 PM CDT Yaya Garcia MD POINT OF CARE TESTING Jana l Result Performing Organization Address [facility] Co de Phone Number [facility] CLIA # [id number] [address] [address] * (ABNORMAL) POC GLUCOSE (11/09/2024 11:01 AM CDT) GLUCOSE POC 369(H) 74 - 99 mg/dL 11/09/2024 11:01 AM CDT [facility] SPECIMEN SOURCE, GLUCOSE POC Capillary 11/09/2024 11:01 AM CDT [facility] Blood, whole 11/09/2024 11:0 1 AM CDT 11/09/2024 11:08 AM CDT Yaya Garcia MD POINT OF CARE TESTING Jana l Result [facility] CLIA # [id number] [address] [address] * (ABNORMAL) POC GLUCOSE (11/09/2024 7:21 AM CDT) [facility] GLUCOSE POC 351(H) 74 - 99 mg/dL 11/09/2024 7:21 AM CDT [facility] SPECIMEN SOURCE, GLUCOSE POC Capillary 11/09/2024 7:21 AM CDT [facility] Blood, whole 11/09/2024 7:21 AM CDT 11/09/2024 7:29 AM CDT Yaya Garcia MD POINT OF CARE TESTING Jana flores Result [facility] CLIA # [id number] [address] [place] [address] * (ABNORMAL) COMPREHENSIVE METABOLIC PANEL (11/09/2024 1:25 AM CDT) [facility] SODIUM 142 136 - 145 mmol/L 11/09/2024 2:12 AM CDT [facility] POTASSIUM 4.1 3.5 - 5.1 mmol/L 11/09/2024 2:12 AM CDT [facility] CHLORIDE 98 98 - 107 mmol/L 11/09/2024 2:12 AM CDT [facility] CO2 27 22 - 29 mmol/L 11/09/2024 2:12 AM CDT [facility] CALCIUM 10.3(H) 8.6 - 10.0 mg/dL 11/09/2024 2:12 AM CDT [facility] BUN 33(H) 6 - 20 mg/dL 11/09/2024 2:12 AM CDT [facility] CREATININE 0.81 0.51 - 0.95 mg/dL 11/09/2024 2:12 AM CDT [facility] GLUCOSE 344(H) 74 - 99 mg/dL 11/09/2024 2:12 AM T [facility] TOTAL PROTEIN 7.4 6.4 - 8.3 g/dL 11/09/2024 2:12 AM [facility] ALBUMIN 4.2 3.5 - 5.2 g/dL 11/09/2024 2:12 AM [facility] BILIRUBIN TOTAL 0.3 0.0 - 1.0 mg/dL 11/09/2024 2:12 AM T [facility] ALKALINE PHOSPHATASE 128(H) 35 - 104 U/L 11/09/2024 2:12 AM [facility] AST 16 10 - 35 U/L 11/09/2024 2:12 AM [facility] ALT 33 <=35 U/L 11/09/2024 2:12 AM [facility] GFR >60 >=60 mL/min/1. 73 sq meter 11/09/2024 2:12 AM [facility] Comment:eGFR calculated with 2020 CKD-EPI equation. Vegetarian diet, extremely high or low muscle mass, and may affect results. Cystatin C with Glomerular Filtration Rate is a suitable alternative for these patients. ANION GAP 17 9 - 20 mmol/L 11/09/2024 2:12 AM [facility] Blood Venipuncture / Unknown 11/09/2024 1:25 AM CDT 11/09/2024 1:31 AM CDT us Yaya Garcia MD CHEMISTRY ORDERABLES Final Result [facility] CLIA # [id number] [address] [place] [address] * (ABNORMAL) CBC WITH DIFFERENTIAL (11/09/2024 1:25 AM CDT) Pathologist [facility] WBC 10.8 4.8 - 10.8 K/uL 11/09/2024 1:41 AM [facility] NRBCS 3(H) <1 % 11/09/2024 1:41 AM [facility] RBC 4.13(L) 4.20 - 5.40 M/uL 11/09/2024 1:41 AM [facility] HEMOGLOBIN 12.3 12.0 - 16.0 g/dL 11/09/2024 1:41 AM [facility] HEMATOCRIT 38.4 36.0 - 46.0 % 11/09/2024 1:41 AM [facility] MCV 93.0 84.0 - 103.0 fL 11/09/2024 1:41 AM [facility] MCH 29.8 27.0 - 34.0 pg 11/09/2024 1:41 AM [facility] MCHC 32.0 30.0 - 35.0 g/dL 11/09/2024 1:41 AM [facility] PLATELETS 207 140 - 440 K/uL 11/09/2024 1:41 AM [facility] MPV 10.6 8.9 - 12.8 fL 11/09/2024 1:41 AM [facility] RDW 18.9(H) 11.0 - 14.5 % 11/09/2024 1:41 AM [facility] RDW-STDEV 62.9(H) 37.0 - 54.0 fL 11/09/2024 1:41 AM [facility] [employer] [facility] NEUTROPHILS 77(H) 42 - 75 % 11/09/2024 1:41 AM [facility] LYMPHOCYTES 12(L) 24 - 44 % 11/09/2024 1:41 AM [facility] [employer] [facility] MONOCYTES 9 2 - 10 % 11/09/2024 1:41 AM [facility] EOSINOPHILS 0 0 - 7 % 11/09/2024 1:41 AM [facility] BASOPHILS 0 0 - 1 % 11/09/2024 1:41 AM [facility] IMMATURE GRANULOCYTES 2 0 - 2 % 11/09/2024 1:41 AM CDT [facility] NEUTROPHIL ABSOLUTE 8.37(H) 2.00 - 8.00 K/uL 11/09/2024 1:41 AM CDT [facility] LYMPHOCYTE ABSOLUTE 1.24 1.20 - 4.00 K/uL 11/09/2024 1:41 AM CDT [facility] MONOCYTE ABSOLUTE 0.92(H) 0.10 - 0.60 K/uL 11/09/2024 1:41 AM CDT [facility] EOSINOPHIL ABSOLUTE 0.00 0.00 - 0.70 K/uL 11/09/2024 1:41 AM CDT [facility] BASOPHILS ABSOLUTE 0.04 0.00 - 0.20 K/uL 11/09/2024 1:41 AM CDT [facility] IMMATURE GRANULOCYTES ABSOLUTE 0.24(H) 0.00 - 0.10 K/uL 11/09/2024 1:41 AM CDT [facility] SMEAR REVIEWED: NN - No Action Needed 11/09/2024 1:41 AM CDT [facility] Blood Venipuncture / Unknown 11/09/2024 1:25 AM CDT 11/09/2024 1:31 AM CDT us Yaya Garcia MD HEMATOLOGY ORDERABLES Jana l Result [facility] CLIA # [id number] [address] [place] [address] * (ABNORMAL) POC GLUCOSE (11/08/2024 8:52 PM CDT) [facility] Signature GLUCOSE POC 237(H) 74 - 99 mg/dL 11/08/2024 8:52 PM CDT [facility] SPECIMEN SOURCE, GLUCOSE POC Capillary 11/08/2024 8:52 PM CDT [facility] Blood, whole 11/08/2024 8:52 PM CDT 11/08/2024 9:20 PM CDT Yaya Garcia MD POINT OF CARE TESTING Jana flores Result [facility] YAKELIN # [id number] [address] [address] [place] [address] * XR LUMBAR SPINE 2 OR 3 VW (11/08/2024 8:30 PM CDT) Anatomical Region Laterality Modality Spine Computed Radiogr aphy 11/08/2024 8:30 PM CDT Impressions 11/09/2024 10:52 AM CDT IMPRESSION: Please see below. Exam: XR LUMBAR SPINE 2 OR 3 VW Date/Time of Exam: 11/08/2024 8:30 PM Reason For Exam: Fall. Diagnosis: COPD with exacerbation (CMS/HCC). Comparison: September 13, 2024 FINDINGS: Frontal lateral and lumbosacral projections show mild left convex scoliosis. Slight degenerative anterolisthesis L4-5. Mild to moderate lumbar disc degeneration, greatest distally. Minor ventral spondylosis. Mild to moderate distal facet arthropathy. Stable mild grade L1 superior endplate compression fracture. Narrative Procedure Note Carlos Garcia, DO - 11/09/2024 IMPRESSION: Please see below. Exam: XR LUMBAR SPINE 2 OR 3 VW Date/Time of Exam: 11/08/2024 8:30 PM Reason For Exam: Fall. Diagnosis: COPD with exacerbation (CMS/HCC). Comparison: September 13, 2024 FINDINGS: Frontal lateral and lumbosacral projections show mild left convex scoliosis. Slight degenerative anterolisthesis L4-5. Mild to moderate lumbar disc degeneration, greatest distally. Minor ventral spondylosis. Mild to moderate distal facet arthropathy. Stable mild grade L1 superior endplate compression fracture. Ronak Cortes MD DIAGNOSTIC IMAGING ORDERABLES Final Result * (ABNORMAL) POC GLUCOSE (11/08/2024 5:49 PM CDT) GLUCOSE POC 556(HH) 12 - 99 mg/dL 11/08/2024 5:49 PM CDT [facility] SPECIMEN SOURCE, GLUCOSE POC Capillary 11/08/2024 5:49 PM CDT [facility] COMMENT, GLU POC Alerted Nurse/MARIELLA/DR 11/08/2024 5:49 PM CDT [facility] Blood, whole 11/08/2024 5:49 PM CDT 11/08/2024 5:58 PM CDT Yaya Garcia MD POINT OF CARE TESTING Jana l Result Performing Organization Address City/[facility]/ZIP Co de Phone Number [facility] CLIA # [id number] [address] [id number] * (ABNORMAL) POC GLUCOSE (11/08/2024 5:03 PM CDT) GLUCOSE POC >600(HH) 74 - 99 mg/dL 11/08/2024 5:03 PM CDT [facility] SPECIMEN SOURCE, GLUCOSE POC Capillary 11/08/2024 5:03 PM CDT [facility] Blood, whole 11/08/2024 5:03 PM CDT 11/08/2024 5:58 PM CDT Yaya Garcia MD POINT OF CARE TESTING Jana l Result [facility] CLIA # [id number] [address] [address] * (ABNORMAL) POC GLUCOSE (11/08/2024 11:58 AM CDT) GLUCOSE POC 493(HH) 74 - 99 mg/dL 11/08/2024 11:58 AM CDT [facility] SPECIMEN SOURCE, GLUCOSE POC Venous 11/08/2024 11:58 AM CDT [facility] COMMENT, GLU POC Alerted Nurse/MARIELLA/D R 11/08/2024 11:58 AM CDT [facility] Blood, whole 11/08/2024 11:5 8 AM CDT 11/08/2024 12:08 PM CDT us Jonny Bowers MD POINT OF CARE TESTING Final Result Performing Organization Address City/[facility]/ZIP Co de Phone Number [facility] CLIA # [id number] [address] [address] [place] [address] * (ABNORMAL) POC GLUCOSE (11/08/2024 10:02 AM CDT) Pathologist [facility] GLUCOSE POC 492(HH) 74 - 99 mg/dL 11/08/2024 10:02 AM CDT [facility] SPECIMEN SOURCE, GLUCOSE POC Venous 11/08/2024 10:02 AM CDT [facility] Blood, whole 11/08/2024 10:0 2 AM CDT 11/08/2024 10:10 AM CDT us Jonny Bowers MD POINT OF CARE TESTING Final Result Performing Organization Address [facility] Co de Phone Number [facility] CLIA # [id number] [address] [address] * RESPIRATORY PATHOGEN PCR PANEL (11/08/2024 4:36 AM CDT) [facility] Respiratory Pathogen PCR Panel NOT DETECTED No respiratory pathogen nucleic acids detected. 11/08/2024 5:41 AM CDT [facility] COVID-19 PCR NOT DETECTED Not Detected 11/08/2024 5:41 AM CDT [facility] Upper Respiratory ENTIRE NASOPHARYNX / Unknown Collection / Unknown 11/08/2024 4:36 AM CDT 11/08/2024 4:42 AM CDT [facility] - 11/08/2024 5:41 AM CDT [employer] Respiratory Panel [...] pertussis Bordetella parapertussis Chlamydophila pneumoniae Mycoplasma pneumoniae Jonny Bowers MD MICROBIOLOGY - GENERAL ORDER JANAY Final Result [facility] # [id number] [address] [place] [address] * (ABNORMAL) BLOOD GAS ARTERIAL (11/08/2024 4:34 AM CDT) PH BLOOD POC 7.46(H) 7.35 - 7.45 11/08/2024 4:34 AM [facility] PCO2 POC 45 35 - 45 mm Hg 11/08/2024 4:34 AM [facility] PO2 POC 83 80 - 105 mm Hg 11/08/2024 4:34 AM T [facility] HCO3 (CALC) POC 32(H) 22 - 26 mmol/L 11/08/2024 4:34 AM T [facility] HEMOGLOBIN POC 11.4(L) 12.0 - 18.0 g/dL 11/08/2024 4:34 AM T [facility] BASE EXCESS POC 8(H) -2 - 3 mmol/L 11/08/2024 4:34 AM [facility] O2 SATURATION POC 97 95 - 98 % 11/08/2024 4:34 AM T [facility] SODIUM POC 138 138 - 146 mmol/L 11/08/2024 4:34 AM [facility] POTASSIUM POC 3.7 3.5 - 4.9 mmol/L 11/08/2024 4:34 AM T [facility] HEMATOCRIT POC 34(L) 38 - 51 % 11/08/2024 4:34 AM [facility] PH TEMP CORRECT 7.46(H) 7.35 - 7.45 11/08/2024 4:34 AM T [facility] PCO2 TEMP CORRECT 45 35 - 45 mm Hg 11/08/2024 4:34 AM [facility] PO2 TEMP CORRECT 83 80 - 105 mm Hg 11/08/2024 4:34 AM [facility] SPECIMEN SOURCE, GASES POC Arterial 11/08/2024 4:34 AM [facility] CALCIUM IONIZED POC 5.0 4.8 - 5.2 mg/dL 11/08/2024 4:34 AM T [facility] TCO2 (CALC) POC 33(H) 23 - 27 mmol/L 11/08/2024 4:34 AM [facility] PUNC SITE POC ART PUNCT 11/08/2024 4:34 AM [facility] Blood, arterial 11/08/2024 4 :34 AM CDT 11/08/2024 4:35 AM CDT us Jonny Bowers MD ABG ORDERABLES Final Result [facility] CLIA # [id number] [facility] [address] [address] [place] [address] * (ABNORMAL) PROTIME-INR (11/08/2024 4:21 AM CDT) PROTIME 26.0(H) 12.7 - 14.9 Seconds 11/08/2024 4:49 AM CDT [facility] INR 2.3(H) 0.8 - 1.2 11/08/2024 4:49 AM CDT [facility] Blood Venipuncture / Unknown 11/08/2024 4:21 AM CDT 11/08/2024 4:30 AM CDT Narrative [facility] - 11/08/2024 4:49 AM CDT Expected Values for INR: DVT/PE Goal INR 2.5; range 2.0 - 3.0 Valve Replacement Tissue Goal INR 2.5; range 2.0 - 3.0 Valve Replacement Mechanical Goal INR 3.0; range 2.5 - 3.5 POST-IA Goal INR 2.5; range 2.0 - 3.0 or Goal INR 3.0; range 2.5 - 3.5 Atrial Fibrillation Goal INR 2.5; range 2.0 - 3.0 Ischemic Stroke Goal INR 2.5; range 2.0 - 3.0 Jonny Bowers MD HEMATOLOGY ORDERABLES Final Result [facility] CLIA # [id number] [address] [place] [address] * (ABNORMAL) BRAIN NATRIURETIC PEPTIDE, BNP OR PROBNP (11/08/2024 4:20 AM CDT) PROBNP, N TERMINAL 360(H) 0 - 125 pg/mL 11/08/2024 5:06 AM CDT [facility] Comment: INTERPRETIVE COMMENT based on [...] years: >1800 pg/mL Blood Venipuncture / Unknown 11/08/2024 4:20 AM CDT 11/08/2024 4:30 AM CDT Jonny Bowers MD CHEMISTRY ORDERABLES Final R esult [facility] CLIA # [id number] [address] [place] [address] [place] [address] * (ABNORMAL) COMPREHENSIVE METABOLIC PANEL (11/08/2024 4:20 AM CDT) SODIUM 143 136 - 145 mmol/L 11/08/2024 5:06 AM T [facility] POTASSIUM 4.0 3.5 - 5.1 mmol/L 11/08/2024 5:06 AM T [facility] CHLORIDE 103 98 - 107 mmol/L 11/08/2024 5:06 AM T [facility] CO2 30(H) 22 - 29 mmol/L 11/08/2024 5:06 AM T [facility] CALCIUM 9.7 8.6 - 10.0 mg/dL 11/08/2024 5:06 AM T [facility] BUN 27(H) 6 - 20 mg/dL 11/08/2024 5:06 AM T [facility] CREATININE 0.69 0.51 - 0.95 mg/dL 11/08/2024 5:06 AM T [facility] GLUCOSE 312(H) 74 - 99 mg/dL 11/08/2024 5:06 AM T [facility] TOTAL PROTEIN 6.6 6.4 - 8.3 g/dL 11/08/2024 5:06 AM T [facility] ALBUMIN 3.7 3.5 - 5.2 g/dL 11/08/2024 5:06 AM T [facility] BILIRUBIN TOTAL 0.2 0.0 - 1.0 mg/dL 11/08/2024 5:06 AM CDT [facility] ALKALINE PHOSPHATASE 122(H) 35 - 104 U/L 11/08/2024 5:06 AM CDT [facility] AST 18 10 - 35 U/L 11/08/2024 5:06 AM T [facility] Comment:Hemolysis present. R esult may be falsely elevated. ALT 31 <=35 U/L 11/08/2024 5:06 AM CDT [facility] GFR >60 >=60 mL/min/1.7 3 sq meter 11/08/2024 5:06 AM T [facility] Comment:eGFR calculated with 2020 CKD-EPI equation. Vegetarian diet, extremely high or low muscle mass, and may affect results. Cystatin C with Glomerular Filtration Rate is a suitable alternative for these patients. ANION GAP 10 9 - 20 mmol/L 11/08/2024 5:06 AM T [facility] Blood Venipuncture / Unknown 11/08/2024 4:20 AM CDT 11/08/2024 4:30 AM CDT us Jonny oBwers MD CHEMISTRY ORDERABLES Final R esult [facility] CLIA # [id number] [address] [place] [address] * (ABNORMAL) CBC WITH DIFFERENTIAL (11/08/2024 4:20 AM CDT) WBC 10.3 4.8 - 10.8 K/uL 11/08/2024 4:48 AM CDT [facility] NRBCS 2(H) <1 % 11/08/2024 4:48 AM CDT [facility] RBC 3.77(L) 4.20 - 5.40 M/uL 11/08/2024 4:48 AM CDT [facility] HEMOGLOBIN 11.2(L) 12.0 - 16.0 g/dL 11/08/2024 4:48 AM [facility] HEMATOCRIT 35.9(L) 36.0 - 46.0 % 11/08/2024 4:48 AM [facility] MCV 95.2 84.0 - 103.0 fL 11/08/2024 4:48 AM [facility] MCH 29.7 27.0 - 34.0 pg 11/08/2024 4:48 AM [facility] MCHC 31.2 30.0 - 35.0 g/dL 11/08/2024 4:48 AM [facility] PLATELETS 209 140 - 440 K/uL 11/08/2024 4:48 AM [facility] MPV 10.5 8.9 - 12.8 fL 11/08/2024 4:48 AM [facility] RDW 18.9(H) 11.0 - 14.5 % 11/08/2024 4:48 AM [facility] RDW-STDEV 64.7(H) 37.0 - 54.0 fL 11/08/2024 4:48 AM [facility] NEUTROPHILS 58 42 - 75 % 11/08/2024 4:48 AM [facility] LYMPHOCYTES 26 24 - 44 % 11/08/2024 4:48 AM [facility] MONOCYTES 13(H) 2 - 10 % 11/08/2024 4:48 AM [facility] EOSINOPHILS 0 0 - 7 % 11/08/2024 4:48 AM [facility] BASOPHILS 0 0 - 1 % 11/08/2024 4:48 AM [facility] IMMATURE GRANULOCYTES 3(H) 0 - 2 % 11/08/2024 4:48 AM [facility] NEUTROPHIL ABSOLUTE 5.99 2.00 - 8.00 K/uL 11/08/2024 4:48 AM [facility] LYMPHOCYTE ABSOLUTE 2.65 1.20 - 4.00 K/uL 11/08/2024 4:48 AM [facility] MONOCYTE ABSOLUTE 1.31(H) 0.10 - 0.60 K/uL 11/08/2024 4:48 AM CDT [facility] EOSINOPHIL ABSOLUTE 0.02 0.00 - 0.70 K/uL 11/08/2024 4:48 AM CDT [facility] BASOPHILS ABSOLUTE 0.03 0.00 - 0.20 K/uL 11/08/2024 4:48 AM CDT [facility] IMMATURE GRANULOCYTES ABSOLUTE 0.27(H) 0.00 - 0.10 K/uL 11/08/2024 4:48 AM CDT [facility] SMEAR REVIEWED: NN - No Action Needed 11/08/2024 4:48 AM CDT [facility] Blood Venipuncture / Unknown 11/08/2024 4:20 AM CDT 11/08/2024 4:30 AM CDT Jonny Bowers MD HEMATOLOGY ORDERABLES Final Result [facility] CLIA # [id number] [facility] [address] [place] [address] * XR CHEST PA OR AP 1 VW (11/08/2024 4:15 AM CDT) Anatomical Region Laterality Modality Chest Computed Radiogr aphy 11/08/2024 4:15 AM CDT Impressions 11/08/2024 7:08 AM CDT Impression: The cardiomediastinal structures are magnified. The lungs are grossly clear. There is no pneumothorax or pleural effusion. The patient is rotated. Narrative 11/08/2024 7:08 AM CDT Exam: XR CHEST PA OR AP 1 VW Date/Time of Exam: 11/08/2024 4:15 AM Reason For Exam: Difficulty Breathing. Diagnosis: See Reason for Exam. Comparison: November 05, 2024. Procedure Note Guilherme Rubin MD - 11/08/2024 Exam: XR CHEST PA OR AP 1 VW Date/Time of Exam: 11/08/2024 4:15 AM Reason For Exam: Difficulty Breathing. Diagnosis: See Reason for Exam. Comparison: November 05, 2024. Impression: The cardiomediastinal structures are magnified. The lungs are grossly clear. There is no pneumothorax or pleural effusion. The patient is rotated. us Jonny Bowers MD DIAGNOSTIC IMAGING ORDERABLE S Final Result documented in this encounter Visit Diagnoses Diagnosis COPD with exacerbation (CMS/HCC)- Primary Obstructive chronic bronchitis with exacerbation COPD with exacerbation (CMS/HCC) Obstructive chronic bronchitis with exacerbation Acute on chronic hypoxic respiratory failure (CMS/HCC) Essential hypertension Unspecified essential hypertension HEENA (generalized anxiety disorder) Generalized anxiety disorder GERD (gastroesophageal reflux disease) Esophageal reflux History of splenectomy Other acquired absence of organ History of pulmonary embolism Personal history of pulmonary embolism 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) Type II or unspecified type diabetes mellitus without mention of complication, not stated as uncontrolled Mixed hyperlipidemia Obesity Obesity, unspecified Chronic pain syndrome 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 Given 11/10/2024 8:37 AM CDT 81 mg Given 11/09/2024 8:42 AM CDT 81 mg Given 11/08/2024 9:39 AM CDT 81 mg atorvastatin (LIPITOR) tablet 40 mg 40 mg, Oral, DAILY AT BEDTIME, First dose on Thu11/08/24 at 2100, Until Discontinued, Routine, Previous Med: atorvastatin (LIPITOR) 40 mg tablet - Orig Sig - Take 40 mg by mouth daily at bedtime. Given 11/09/2024 8:59 PM CDT 40 mg Given 11/08/2024 8:05 PM CDT 40 mg benzonatate (TESSALON) capsule 100 mg 100 mg, Oral, EVERY 4 HOURS PRN, Starting on Thu11/08/24 at 0912, Until Thu11/10/24 at 1604, Cough, Routine bisacodyL (DULCOLAX) rectal suppository 10 mg 10 mg, Rectal, DAILY PRN, Starting on Thu11/08/24 at 0752, Until Thu11/10/24 at 1604, Constipation, Routine doxycycline hyclate (VIBRAMYCIN) capsule 100 mg 100 mg, Oral, EVERY 12 HOURS (BlD), First dose on Thu11/08/24 at 0900, Until Discontinued, Routine, Previous Med: doxycycline (MONODOX) 100 mg Capsule - Orig Sig - Take 1 Capsule (100 mg) by mouth every 12 hours for 3 days. , Antibiotic Indication: Other: Enter in Comments, Antibiotic Indication: copd excb Given 11/10/2024 8:36 AM CDT 100 mg Given 11/09/2024 8:57 PM CDT 100 mg Given 11/09/2024 8:41 AM CDT 100 mg empagliflozin (JARDIANCE) tablet 10 mg 10 mg, Oral, DAILY EARLY, First dose on Thu11/08/24 at 0800, Until Discontinued, Routine, Previous Med: empagliflozin (JARDIANCE) 10 mg tablet - Orig Sig - Take 1 Tablet (10 mg) by mouth daily in the morning. , Indication: Heart Failure Given 11/10/2024 4:06 AM CDT 10 mg Given 11/09/2024 5:14 AM CDT 10 mg Given 11/08/2024 9:53 AM CDT 10 mg fluticasone furoate-vilanteroL (BREO ELLIPTA) 100-25 mcg/dose inhaler 1 Puff 1 Puff, Inhalation, DAILY RESPIRATORY, First dose on Thu11/08/24 at 1200, Until Discontinued, Routine Given 11/10/2024 8:35 AM CDT 1 Puff furosemide (LASIX) tablet 80 mg 80 mg, Oral, TWO TIMES DAILY, First dose on Thu11/08/24 at 0900, Until Discontinued, Routine, Previous Med: furosemide (LASIX) 80 mg tablet - Orig Sig - Take 1 Tablet (80 mg) by mouth 2 times daily. Given 11/10/2024 8:37 AM CDT 80 mg Given 11/09/2024 8:59 PM CDT 80 mg Given 11/09/2024 8:42 AM CDT 80 mg guaiFENesin (MUCINEX) SR tablet 600 mg 600 mg, Oral, EVERY 12 HOURS (BlD), First dose on Thu11/08/24 at 0915, Until Discontinued, Routine Given 11/10/2024 8:36 AM CDT 600 mg Given 11/09/2024 8:59 PM CDT 600 mg Given 11/09/2024 8:42 AM CDT 600 mg HYDROcodone-acetaminophen (NORCO) 10-325 mg per tablet 1 Tablet 1 Tablet, Oral, EVERY 4 HOURS PRN, Starting on Thu11/08/24 at 0923, Until Thu11/10/24 at 1604, Pain (See admin instructions), Routine Given 11/10/2024 12:55 PM CDT 1 Tablet Given 11/10/2024 8:40 AM CDT 1 Tablet Given 11/10/2024 4:06 AM CDT 1 Tablet HYDROcodone-acetaminophen (NORCO) 7.5-325 mg per tablet 1 Tablet 1 Tablet, Oral, EVERY 4 HOURS PRN, Starting on Thu11/08/24 at 0748, Until Thu11/08/24 at 0923, Pain, Moderate, Pain, Severe, Routine, Previous Med: HYDROcodone-acetaminophen (NORCO) 7.5-325 mg Tablet - Orig Sig - Take 1 Tablet by mouth every 8 hours as needed for Pain, Moderate or Pain, Severe. Given 11/08/2024 9:06 AM CDT 1 Tablet insulin glargine-yfgn injection 30 Units 30 Units, subCUT, TWO TIMES DAILY, First dose (after last modification) on Thu11/09/24 at 2100, Until Discontinued, Routine Given 11/10/2024 8:37 AM CDT 30 Units Abdomen, Right Upper Quadrant Given 11/09/2024 8:58 PM CDT 30 Units Ar m, Right Upper insulin glargine-yfgn injection 40 Units 40 Units, subCUT, DAILY AT BEDTIME, First dose on Thu11/08/24 at 2100, Until Discontinued, Routine Given 11/08/2024 8:54 PM CDT 40 Units Abdominal Tissue insulin glargine-yfgn injection 40 Units 40 Units, subCUT, TWO TIMES DAILY, First dose (after last modification) on Thu11/09/24 at 0900, Until Discontinued, Routine Given 11/09/2024 8:48 AM CDT 40 Units Arm, Right Upper insulin lispro (HumaLOG,ADMELOG) injection 0-18 Units 0-18 Units, subCUT, THREE TIMES DAILY WITH MEALS, First dose on Thu11/08/24 at 0800, Until Discontinued, Routine Given 11/10/2024 7:29 AM CDT 12 Units Abdomen, Right Upper Quadrant Given 11/09/2024 12:20 PM CDT 18 Units A bdomen, Left Lower Quadrant Given 11/09/2024 8:58 AM CDT 15 Units Ar m, Left Upper insulin lispro (HumaLOG,ADMELOG) injection 15 Units 15 Units, subCUT, THREE TIMES DAILY WITH MEALS, First dose on Thu11/08/24 at 0800, Until Discontinued, Routine Given 11/08/2024 5:29 PM CDT 15 Units Abdominal Tissue insulin lispro (HumaLOG,ADMELOG) injection 18 Units 18 Units, subCUT, THREE TIMES DAILY WITH MEALS, First dose (after last modification) on Thu11/10/24 at 0800, Until Discontinued, Routine Given 11/10/2024 12:20 PM CDT 18 Units Arm, Right Upper Given 11/10/2024 7:31 AM CDT 18 Units Ab domen, Right Upper Quadrant insulin lispro (HumaLOG,ADMELOG) injection 22 Units 22 Units, subCUT, THREE TIMES DAILY WITH MEALS, First dose (after last modification) on Thu11/09/24 at 0800, Until Discontinued, Routine Given 11/09/2024 5:37 PM CDT 22 Units Abdomen, Left Lower Quadrant Given 11/09/2024 12:20 PM CDT 22 Units A bdomen, Left Lower Quadrant Given 11/09/2024 8:47 AM CDT 22 Units Ar m, Right Upper insulin lispro (HumaLOG,ADMELOG) injection 25 Units 25 Units, subCUT, ONE TIME ONLY, 1 dose, On Thu11/08/24 at 1815, Routine Given 11/08/2024 6:16 PM CDT 25 Units Abdominal Tissue IPRATROPIUM 0.5 MG-ALBUTEROL 3 MG (2.5 MG BASE)/3 ML NEBULIZATION SOLN (CABINET OVERRIDE) 1 dose, Starting on Thu11/08/24 at 0624, Until Thu11/08/24 at 0625, Megan Armendariz E: cabinet override Given 11/08/2024 6:25 AM CDT 3 mL ipratropium-albuteroL (DUONEB) 0.5 mg-3 mg(2.5 mg base)/3 mL inhalation solution 3 mL 3 mL, Inhalation, ONE TIME ONLY RESPIRATORY, 1 dose, On Thu11/08/24 at 0415, Routine Given 11/08/2024 4:10 AM CDT 3 mL ipratropium-albuteroL (DUONEB) 0.5 mg-3 mg(2.5 mg base)/3 mL inhalation solution 3 mL 3 mL, Inhalation, ONE TIME ONLY RESPIRATORY, 1 dose, On Thu11/08/24 at 0415, Routine Given 11/08/2024 4:10 AM CDT 3 mL ipratropium-albuteroL (DUONEB) 0.5 mg-3 mg(2.5 mg base)/3 mL inhalation solution 3 mL 3 mL, Inhalation, ONE TIME ONLY RESPIRATORY, 1 dose, On Thu11/08/24 at 0415, Routine Given 11/08/2024 4:10 AM CDT 3 mL ipratropium-albuteroL (DUONEB) 0.5 mg-3 mg(2.5 mg base)/3 mL inhalation solution 3 mL 3 mL, Inhalation, EVERY 12 HOURS RESPIRATORY, First dose (after last modification) on Thu11/08/24 at 1900, Until Discontinued, Routine, Previous Med: ipratropium-albuteroL (DUONEB) 0.5 mg-3 mg(2.5 mg base)/3 mL Solution for Nebulization - Orig Sig - Take 3 mL by inhalation every 4 hours as needed for Shortness of Breath. Given 11/09/2024 7:25 PM CDT 3 mL isosorbide mononitrate (IMDUR) SR 24 hour tablet 30 mg 30 mg, Oral, DAILY, First dose on Thu11/08/24 at 0900, Until Discontinued, Routine, Previous Med: isosorbide mononitrate (IMDUR) 30 mg Extended Release 24 hour tablet - Orig Sig - TAKE 1 TABLET BY MOUTH EVERY DAY Given 11/10/2024 8:36 AM CDT 30 mg Given 11/09/2024 8:42 AM CDT 30 mg Given 11/08/2024 9:38 AM CDT 30 mg LORazepam (ATIVAN) tablet 0.5 mg 0.5 mg, Oral, EVERY 8 HOURS PRN, Starting on Thu11/08/24 at 0748, Until Thu11/10/24 at 1604, Anxiety, Routine, Previous Med: LORazepam (ATIVAN) 0.5 mg tablet - Orig Sig - Take 1 Tablet (0.5 mg) by mouth every 8 hours as needed for Anxiety. Given 11/09/2024 8:59 PM CDT 0.5 mg magnesium HYDROXIDE (MILK OF MAGNESIA) oral suspension 30 mL 30 mL, Oral, DAILY PRN, Starting on Thu11/08/24 at 0752, Until Thu11/10/24 at 1604, Constipation, Routine methylPREDNISolone sodium succinate (SOLU-Medrol) 125 mg in sterile water 2 mL injection 125 mg, IV, ONE TIME ONLY, 1 dose, On Thu11/08/24 at 0415, Routine Given 11/08/2024 4:22 AM CDT 125 mg methylPREDNISolone sodium succinate (SOLU-Medrol) 40 mg in sterile water 1 mL injection 40 mg, IV, EVERY 6 HOURS, First dose on Thu11/08/24 at 0900, Until Discontinued, Routine Given 11/09/2024 5:14 AM CDT 40 mg Given 11/08/2024 11:47 PM CDT 40 mg Given 11/08/2024 5:31 PM CDT 40 mg methylPREDNISolone sodium succinate (SOLU-Medrol) 40 mg in sterile water 1 mL injection 40 mg, IV, EVERY 12 HOURS (BlD), First dose (after last modification) on Thu11/09/24 at 2100, Until Discontinued, Routine Given 11/10/2024 8:40 AM CDT 40 mg Given 11/09/2024 8:59 PM CDT 40 mg metoprolol succinate (TOPROL XL) SR 24 hour tablet 25 mg 25 mg, Oral, DAILY, First dose on Thu11/08/24 at 0900, Until Discontinued, Routine, Previous Med: metoprolol succinate (TOPROL XL) 25 mg Extended Release 24 hour tablet - Orig Sig - Take 1 Tablet (25 mg) by mouth daily. Given 11/10/2024 8:37 AM CDT 25 mg Given 11/09/2024 8:42 AM CDT 25 mg Given 11/08/2024 9:39 AM CDT 25 mg morphine 4 mg/mL injection 2 mg 2 mg, IV, EVERY 4 HOURS PRN, 2 doses, Starting on Thu11/08/24 at 1933, Until Thu11/08/24 at 2351, Pain (See admin instructions), Routine Given 11/08/2024 11:51 PM CDT 2 mg Given 11/08/2024 8:04 PM CDT 2 mg morphine 4 mg/mL injection 2 mg 2 mg, IV, ONE TIME ONLY, 1 dose, On Thu11/09/24 at 0500, Routine Given 11/09/2024 5:14 AM CDT 2 mg OLANZapine (ZyPREXA) tablet 10 mg 10 mg, Oral, DAILY AT BEDTIME, First dose on Thu11/08/24 at 2100, Until Discontinued, Routine, Previous Med: OLANZapine (ZyPREXA) 10 mg tablet - Orig Sig - Take 10 mg by mouth daily at bedtime. Given 11/09/2024 8:57 PM CDT 10 mg Given 11/08/2024 8:10 PM CDT 10 mg oxyCODONE (ROXICODONE) tablet 5 mg 5 mg, Oral, ONE TIME ONLY, 1 dose, On Thu11/10/24 at 0100, Routine Given 11/10/2024 1:10 AM CDT 5 mg potassium CHLORIDE (KLOR-CON) SR tablet 20 mEq 20 mEq, Oral, TWO TIMES DAILY WITH MEALS, First dose on Thu11/08/24 at 0800, Until Discontinued, Routine, Previous Med: potassium CHLORIDE (KLOR-CON) 10 mEq Extended Release tablet - Orig Sig - Take 1 Tablet by mouth daily. Given 11/10/2024 8:37 AM CDT 20 mEq Given 11/09/2024 5:36 PM CDT 20 mEq Given 11/09/2024 8:41 AM CDT 20 mEq ranolazine ER (RANEXA) SR 12 hour tablet 500 mg 500 mg, Oral, EVERY 12 HOURS, First dose on Thu11/08/24 at 0800, Until Discontinued, Routine, Previous Med: ranolazine ER (RANEXA) 500 mg Extended Release 12 hour tablet - Orig Sig - Take 1 Tablet (500 mg) by mouth every 12 hours. Given 11/10/2024 8:35 AM CDT 500 mg Given 11/09/2024 8:57 PM CDT 500 mg Given 11/09/2024 8:42 AM CDT 500 mg sacubitriL-valsartan (ENTRESTO) 24-26 mg tablet 1 Tablet 1 Tablet, Oral, TWO TIMES DAILY, First dose on Thu11/08/24 at 0900, Until Discontinued, Routine, Previous Med: sacubitriL-valsartan (ENTRESTO) 24-26 mg Tablet - Orig Sig - Take 1 Tablet by mouth 2 times daily. Given 11/10/2024 8:36 AM CDT 1 Tabl et Given 11/09/2024 8:59 PM CDT 1 Tablet Given 11/09/2024 8:41 AM CDT 1 Tablet sennosides-docusate sodium (SENNA-S) 8.6-50 mg per tablet 1 Tablet 1 Tablet, Oral, TWO TIMES DAILY, First dose on Thu11/08/24 at 0900, Until Discontinued, Routine Given 11/10/2024 8:37 AM CDT 1 Tablet Given 11/09/2024 8:59 PM CDT 1 Tablet Given 11/09/2024 8:41 AM CDT 1 Tablet sodium chloride flush injection 10 mL 10 mL, IV, EVERY 12 HOURS (BlD), First dose on Thu11/08/24 at 0900, Until Discontinued, Routine Given 11/10/2024 8:35 AM CDT 10 mL Given 11/09/2024 8:58 PM CDT 10 mL Given 11/09/2024 8:42 AM CDT 10 mL umeclidinium (INCRUSE ELLIPTA) 62.5 mcg/actuation inhaler 1 Puff 1 Puff, Inhalation, DAILY RESPIRATORY, First dose on Thu11/08/24 at 1200, Until Discontinued, Routine Given 11/10/2024 8:42 AM CDT 1 Puff warfarin (COUMADIN) tablet 12 mg 12 mg, Oral, DAILY LATE, First dose on Thu11/08/24 at 1700, Until Discontinued, Routine, Previous Med: warfarin (COUMADIN) 6 mg tablet - Orig Sig - Take 2 Tablets (12 mg) by mouth late in the day. , Indication: A Fib, Goal INR: 2 to 3 Given 11/09/2024 5:36 PM CDT 12 mg Given 11/08/2024 8:06 PM CDT 12 mg zinc OXIDE-cod liver oil (DESITIN) 40 % topical paste Topical, DAILY PRN, Starting on Thu11/08/24 at 1539, Until Thu11/10/24 at 1604, Rash or Redness, Routine documented in this encounter Active and Recently Administered Medications Times are shown in CDT. Scheduled Medication Order 11/08/2024 11/09/2024 11/10/2024 aspirin (CARTER CHEWABLE) chewable tablet 81 mg 81 mg, Oral, DAILY, First dose on Thu11/08/24 at 0900, Until Discontinued, Routine, Previous Med: aspirin (CARTER CHEWABLE) 81 mg Tablet, Chewable - Orig Sig - Take 81 mg by mouth daily. 938 (Given - Provider: SYLVIA Fonseca) 841 (Given - Provider: Dedra Shannon LPN) 836 (Given - Provider: Harika Mendoza, MARICARMEN) atorvastatin (LIPITOR) tablet 40 mg 40 mg, Oral, DAILY AT BEDTIME, First dose on Thu11/08/24 at 2100, Until Discontinued, Routine, Previous Med: atorvastatin (LIPITOR) 40 mg tablet - Orig Sig - Take 40 mg by mouth daily at bedtime. 2004 (Given - Provider: Kamille Dan RN) 2058 (Given - Provider: Janey Reese LPN) dextrose 5 % - sodium chloride 0.9 % infusion IV, at 40 mL/hr, SEE ADMIN INSTRUCTIONS, Starting on Thu11/08/24 at 0753, Until Thu11/10/24 at 1604, Routine dextrose 5 % in water 250 mL flush bag 25 mL 25 mL, IV, SEE ADMIN INSTRUCTIONS, Starting on Thu11/08/24 at 0751, Until Thu11/10/24 at 1604, Routine dextrose 50% (D50) syringe 12.5 Gram 12.5 Gram, IV, SEE ADMIN INSTRUCTIONS, Starting on Thu11/08/24 at 0753, Until Thu11/10/24 at 1604, Routine dextrose 50% (D50) syringe 25 Gram 25 Gram, IV, SEE ADMIN INSTRUCTIONS, Starting on Thu11/08/24 at 0753, Until Thu11/10/24 at 1604, Routine doxycycline hyclate (VIBRAMYCIN) capsule 100 mg 100 mg, Oral, EVERY 12 HOURS (BlD), First dose on Thu11/08/24 at 0900, Until Discontinued, Routine, Previous Med: doxycycline (MONODOX) 100 mg Capsule - Orig Sig - Take 1 Capsule (100 mg) by mouth every 12 hours for 3 days. , Antibiotic Indication: Other: Enter in Comments, Antibiotic Indication: copd excb 53 (Given - Provider: SYLVIA Fonseca)2009 (Given - Provider: Kamille Dan RN) 840 (Given - Provider: Dedra Shannon LPN)2056 (Given - Provider: Janey Reese LPN) 835 (Given - Provider: Harika Mendoza, MARICARMEN) empagliflozin (JARDIANCE) tablet 10 mg 10 mg, Oral, DAILY EARLY, First dose on Thu11/08/24 at 0800, Until Discontinued, Routine, Previous Med: empagliflozin (JARDIANCE) 10 mg tablet - Orig Sig - Take 1 Tablet (10 mg) by mouth daily in the morning. , Indication: Heart Failure 53 (Given - Provider: SYLVIA Fonseca) 14 (Given - Provider: Kamille Dan RN) 405 (Given - Provider: Janey Reese LPN) fluticasone furoate-vilanteroL (BREO ELLIPTA) 100-25 mcg/dose inhaler 1 Puff 1 Puff, Inhalation, DAILY RESPIRATORY, First dose on Thu11/08/24 at 1200, Until Discontinued, Routine 1200 (Due) 0800 (Refused - Provider: Dedra Shannon LPN) 0835 (Given - Provider: Harika Mendoza RN) furosemide (LASIX) tablet 80 mg 80 mg, Oral, TWO TIMES DAILY, First dose on Thu11/08/24 at 0900, Until Discontinued, Routine, Previous Med: furosemide (LASIX) 80 mg tablet - Orig Sig - Take 1 Tablet (80 mg) by mouth 2 times daily. 937 (Given - Provider: SYLVIA Fonseca)2004 (Given - Provider: Kamille Dan RN) 841 (Given - Provider: Dedra Shannon LPN)2058 (Given - Provider: Janey Reese LPN) 836 (Given - Provider: Harika Mendoza RN) glucagon HCL 1 mg/mL injection 1 mg 1 mg, IM, SEE ADMIN INSTRUCTIONS, Starting on Thu11/08/24 at 0753, Until Thu11/10/24 at 1604, Routine guaiFENesin (MUCINEX) SR tablet 600 mg 600 mg, Oral, EVERY 12 HOURS (BlD), First dose on Thu11/08/24 at 0915, Until Discontinued, Routine 53 (Given - Provider: SYLVIA Fonseca)2004 (Given - Provider: Kamille Dan RN) 841 (Given - Provider: Dedra Shannon LPN)2058 (Given - Provider: Janey Reese LPN) 08 (Given - Provider: Harika Mendoza RN) insulin glargine-yfgn injection 30 Units 30 Units, subCUT, TWO TIMES DAILY, First dose (after last modification) on Thu11/09/24 at 2100, Until Discontinued, Routine 2057 (Given - Provider: Janey Reese LPN) 836 (Given - Provider: Harika Mendoza RN) insulin glargine-yfgn injection 40 Units (CANCELED) 40 Units, subCUT, DAILY AT BEDTIME, First dose on Thu11/08/24 at 2100, Until Discontinued, Routine 2053 (Given - Provider: Kamille Dan RN) insulin glargine-yfgn injection 40 Units (CANCELED) 40 Units, subCUT, TWO TIMES DAILY, First dose (after last modification) on Thu11/09/24 at 0900, Until Discontinued, Routine 847 (Given - Provider: Dedra Shannon LPN) insulin lispro (HumaLOG,ADMELOG) injection 0-18 Units 0-18 Units, subCUT, THREE TIMES DAILY WITH MEALS, First dose on Thu11/08/24 at 0800, Until Discontinued, Routine 1027 (Given - Provider: SYLVIA Fonseca)1212 (Given - Provider: SYLVIA Fonseca)1729 (Given - Provider: Lisa Montero RN) 0858 (Given - Provider: Dedra Shannon LPN)1220 (Given - Provider: Dedra Shannon LPN - Comment: [address] Garcia)1700 (Not Given - Provider: Dedra Shannon LPN - Reason: Lab results / vitals) 0729 (Given - Provider: Harika Mendoza RN)1200 (Not Given - Provider: Harika Mendoza RN - Reason: Lab results / vitals) insulin lispro (HumaLOG,ADMELOG) injection 0-9 Units 0-9 Units, subCUT, DAILY AT BEDTIME, First dose on Thu11/08/24 at 2100, Until Discontinued, Routine 2052 (Not Given - Provider: Kamille Dan RN - Reason: Lab results / vitals - Comment: 237) 2056 (Not Given - Provider: Janey Reese LPN - Reason: Lab results / vitals) insulin lispro (HumaLOG,ADMELOG) injection 15 Units (CANCELED) 15 Units, subCUT, THREE TIMES DAILY WITH MEALS, First dose on Thu11/08/24 at 0800, Until Discontinued, Routine 0800 (Not Given - Provider: SYLVIA Fonseca - Reason: Strict NPO)1200 (Not Given - Provider: SYLVIA Fonseca - Reason: Clarify-Other (Comment) - Comment: clarified with provider)172 (Given - Provider: Lisa Montero RN) insulin lispro (HumaLOG,ADMELOG) injection 18 Units 18 Units, subCUT, THREE TIMES DAILY WITH MEALS, First dose (after last modification) on Thu11/10/24 at 0800, Until Discontinued, Routine 0731 (Given - Provider: Harika Mendoza RN)1220 (Given - Provider: Harika Mendoza RN) insulin lispro (HumaLOG,ADMELOG) injection 22 Units (CANCELED) 22 Units, subCUT, THREE TIMES DAILY WITH MEALS, First dose (after last modification) on Thu11/09/24 at 0800, Until Discontinued, Routine 0847 (Given - Provider: Dedra Shannon LPN)1220 (Given - Provider: Dedra Shannon LPN)1737 (Given - Provider: Dedra Shannon LPN) insulin lispro (HumaLOG,ADMELOG) injection 25 Units (COMPLETED) 25 Units, subCUT, ONE TIME ONLY, 1 dose, On Thu11/08/24 at 1815, Routine 1816 (Given - Provider: Lisa Montero RN) ipratropium-albuteroL (DUONEB) 0.5 mg-3 mg(2.5 mg base)/3 mL inhalation solution 3 mL (COMPLETED) 3 mL, Inhalation, ONE TIME ONLY RESPIRATORY, 1 dose, On Thu11/08/24 at 0415, Routine 041 (Given - Provider: Megan Armendariz) ipratropium-albuteroL (DUONEB) 0.5 mg-3 mg(2.5 mg base)/3 mL inhalation solution 3 mL (COMPLETED) 3 mL, Inhalation, ONE TIME ONLY RESPIRATORY, 1 dose, On Thu11/08/24 at 0415, Routine 041 (Given - Provider: Megan Armendariz) ipratropium-albuteroL (DUONEB) 0.5 mg-3 mg(2.5 mg base)/3 mL inhalation solution 3 mL (COMPLETED) 3 mL, Inhalation, ONE TIME ONLY RESPIRATORY, 1 dose, On Thu11/08/24 at 0415, Routine 041 (Given - Provider: Megan Armendariz) ipratropium-albuteroL (DUONEB) 0.5 mg-3 mg(2.5 mg base)/3 mL inhalation solution 3 mL 3 mL, Inhalation, EVERY 12 HOURS RESPIRATORY, First dose (after last modification) on Thu11/08/24 at 1900, Until Discontinued, Routine, Previous Med: ipratropium-albuteroL (DUONEB) 0.5 mg-3 mg(2.5 mg base)/3 mL Solution for Nebulization - Orig Sig - Take 3 mL by inhalation every 4 hours as needed for Shortness of Breath. 194 (Refused - Provider: Michael Roberts RCP) 0757 (Refused - Provider: Lex Loaiza RCP)1925 (Given - Provider: Kyler Vitale RCP) 0700 (Refused - Provider: Cande Nicholson RCP) isosorbide mononitrate (IMDUR) SR 24 hour tablet 30 mg 30 mg, Oral, DAILY, First dose on Thu11/08/24 at 0900, Until Discontinued, Routine, Previous Med: isosorbide mononitrate (IMDUR) 30 mg Extended Release 24 hour tablet - Orig Sig - TAKE 1 TABLET BY MOUTH EVERY DAY 09 (Given - Provider: SYLVIA Fonseca) 0842 (Given - Provider: Dedra Shannon LPN) 0836 (Given - Provider: Harika Mendoza, MARICARMEN) methylPREDNISolone sodium succinate (SOLU-Medrol) 125 mg in sterile water 2 mL injection (COMPLETED) 125 mg, IV, ONE TIME ONLY, 1 dose, On Thu11/08/24 at 0415, Routine 042 (Given - Provider: SYLVIA Madden) methylPREDNISolone sodium succinate (SOLU-Medrol) 40 mg in sterile water 1 mL injection (CANCELED) 40 mg, IV, EVERY 6 HOURS, First dose on Thu11/08/24 at 0900, Until Discontinued, Routine 938 (Given - Provider: SYLVIA Fonseca)1731 (Given - Provider: Lisa Montero, MARICARMEN)2347 (Given - Provider: Kamille Dan, MARICARMEN) 0514 (Given - Provider: Kamille Dan, MARICARMEN) methylPREDNISolone sodium succinate (SOLU-Medrol) 40 mg in sterile water 1 mL injection 40 mg, IV, EVERY 12 HOURS (BlD), First dose (after last modification) on Thu11/09/24 at 2100, Until Discontinued, Routine 2058 (Given - Provider: Janey Reese LPN) 0840 (Given - Provider: Harika Mendoza, MARICARMEN) metoprolol succinate (TOPROL XL) SR 24 hour tablet 25 mg 25 mg, Oral, DAILY, First dose on Thu11/08/24 at 0900, Until Discontinued, Routine, Previous Med: metoprolol succinate (TOPROL XL) 25 mg Extended Release 24 hour tablet - Orig Sig - Take 1 Tablet (25 mg) by mouth daily. 09 (Given - Provider: SYLVIA Fonseca) 0842 (Given - Provider: Dedra Shannon LPN) 0837 (Given - Provider: Harika Mendoza, MARICARMEN) morphine 4 mg/mL injection 2 mg (COMPLETED) 2 mg, IV, ONE TIME ONLY, 1 dose, On Thu11/09/24 at 0500, Routine 0514 (Given - Provider: Kamille Dan RN) naloxone (NARCAN) 0.4 mg/mL injection 0.1-0.4 mg 0.1-0.4 mg, IV, SEE ADMIN INSTRUCTIONS, Starting on Thu11/08/24 at 0751, Until Thu11/10/24 at 1604, Routine OLANZapine (ZyPREXA) tablet 10 mg 10 mg, Oral, DAILY AT BEDTIME, First dose on Thu11/08/24 at 2100, Until Discontinued, Routine, Previous Med: OLANZapine (ZyPREXA) 10 mg tablet - Orig Sig - Take 10 mg by mouth daily at bedtime. 2009 (Given - Provider: Kamille Dan RN) 2056 (Given - Provider: Janey Reese LPN) oxyCODONE (ROXICODONE) tablet 5 mg (COMPLETED) 5 mg, Oral, ONE TIME ONLY, 1 dose, On Thu11/10/24 at 0100, Routine 0110 (Given - Provider: Janey Reese LPN) potassium CHLORIDE (KLOR-CON) SR tablet 20 mEq 20 mEq, Oral, TWO TIMES DAILY WITH MEALS, First dose on Thu11/08/24 at 0800, Until Discontinued, Routine, Previous Med: potassium CHLORIDE (KLOR-CON) 10 mEq Extended Release tablet - Orig Sig - Take 1 Tablet by mouth daily. 0938 (Given - Provider: SYLVIA Fonseca)173 (Given - Provider: Lisa Montero RN) 0841 (Given - Provider: Dedra Shannon LPN)173 (Given - Provider: Dedra Shannon LPN) 0837 (Given - Provider: Harika Mendoza RN) ranolazine ER (RANEXA) SR 12 hour tablet 500 mg 500 mg, Oral, EVERY 12 HOURS, First dose on Thu11/08/24 at 0800, Until Discontinued, Routine, Previous Med: ranolazine ER (RANEXA) 500 mg Extended Release 12 hour tablet - Orig Sig - Take 1 Tablet (500 mg) by mouth every 12 hours. 0953 (Given - Provider: SYLVIA Fonseca)2009 (Given - Provider: Kamille Dan RN) 42 (Given - Provider: Dedra Shannon LPN)2056 (Given - Provider: Janey Reese LPN) 0835 (Given - Provider: Harika Mendoza RN) sacubitriL-valsartan (ENTRESTO) 24-26 mg tablet 1 Tablet 1 Tablet, Oral, TWO TIMES DAILY, First dose on Thu11/08/24 at 0900, Until Discontinued, Routine, Previous Med: sacubitriL-valsartan (ENTRESTO) 24-26 mg Tablet - Orig Sig - Take 1 Tablet by mouth 2 times daily. 0939 (Given - Provider: SYLVIA Fonseca)2004 (Given - Provider: Kamille Dan RN) 840 (Given - Provider: Dedra Shannon LPN)2058 (Given - Provider: Janey Reese LPN) 835 (Given - Provider: Harika Mendoza RN) sennosides-docusate sodium (SENNA-S) 8.6-50 mg per tablet 1 Tablet 1 Tablet, Oral, TWO TIMES DAILY, First dose on Thu11/08/24 at 0900, Until Discontinued, Routine 937 (Given - Provider: SYLVIA Fonseca)2099 (Refused - Provider: Kamille Dan RN) 840 (Given - Provider: Dedra Shannon LPN)2058 (Given - Provider: Janey Reese LPN) 836 (Given - Provider: Harika Mendoza RN) sodium chloride 0.9 % flush bag 25 mL 25 mL, IV, SEE ADMIN INSTRUCTIONS, Starting on Thu11/08/24 at 0751, Until Thu11/10/24 at 1604, Routine sodium chloride flush injection 10 mL 10 mL, IV, EVERY 12 HOURS (BlD), First dose on Thu11/08/24 at 0900, Until Discontinued, Routine 09 (Due)2004 (Given - Provider: Kamille Dan RN) 841 (Given - Provider: Dedra Shannon LPN)2057 (Given - Provider: Janey Reese LPN) 08 (Given - Provider: Harika Mendoza RN) sodium chloride flush injection 10 mL 10 mL, IV, SEE ADMIN INSTRUCTIONS, Starting on Thu11/08/24 at 0751, Until Thu11/10/24 at 1604, Routine umeclidinium (INCRUSE ELLIPTA) 62.5 mcg/actuation inhaler 1 Puff 1 Puff, Inhalation, DAILY RESPIRATORY, First dose on Thu11/08/24 at 1200, Until Discontinued, Routine 1200 (Due) 0800 (Refused - Provider: Dedra Shannon LPN) 0842 (Given - Provider: Harika Mendoza RN) warfarin (COUMADIN) tablet 12 mg 12 mg, Oral, DAILY LATE, First dose on Thu11/08/24 at 1700, Until Discontinued, Routine, Previous Med: warfarin (COUMADIN) 6 mg tablet - Orig Sig - Take 2 Tablets (12 mg) by mouth late in the day. , Indication: A Fib, Goal INR: 2 to 3 2005 (Given - Provider: Kamille Dan RN) 173 (Given - Provider: Dedra Shannon LPN) PRN Medication Order 11/08/2024 11/09/2024 11/10/2024 acetaminophen (TYLENOL) tablet 650 mg 650 mg, Oral, EVERY 6 HOURS PRN, Starting on Thu11/08/24 at 0752, Until Thu11/10/24 at 1604, Other (See Comment), See admin instructions, Routine 2100 (Refused - Provider: Janey Reese LPN) albuterol sulfate 90 mcg/Actuation inhaler 2 Puff 2 Puff, Inhalation, EVERY 4 HOURS PRN RESPIRATORY, Starting on Thu11/08/24 at 0750, Until [place] 11/10/24 at 1604, Shortness of Breath, Routine, Previous Med: Ventolin HFA 90 mcg/actuation inhaler - Orig Sig - Take 2 Puffs by inhalation every 6 hours as needed. aluminum - magnesium - simethicone (MYLANTA) 200-200-20 mg/5 mL oral suspension 30 mL 30 mL, Oral, EVERY 2 HOURS PRN, Starting on Thu11/08/24 at 0752, Until [place] 11/10/24 at 1604, Indigestion, Routine benzonatate (TESSALON) capsule 100 mg 100 mg, Oral, EVERY 4 HOURS PRN, Starting on Thu11/08/24 at 0912, Until [place] 11/10/24 at 1604, Cough, Routine bisacodyL (DULCOLAX) rectal suppository 10 mg(Linked Group 1) 10 mg, Rectal, DAILY PRN, Starting on Thu11/08/24 at 0752, Until Thu11/10/24 at 1604, Constipation, Routine HYDROcodone-acetaminophe n (NORCO) 10-325 mg per tablet 1 Tablet 1 Tablet, Oral, EVERY 4 HOURS PRN, Starting on Thu11/08/24 at 0923, Until Thu11/10/24 at 1604, Pain (See admin instructions), Routine 1142 (Due)1327 (Given - Provider: SYLVIA Fonseca)1730 (Given - Provider: Lisa Montero RN)2132 (Given - Provider: Kamille Dan RN) 0229 (Given - Provider: Kamille Dan RN)0839 (Given - Provider: Dedra Shannon LPN)1330 (Given - Provider: Dedra Shannon LPN)1736 (Given - Provider: Dedra Shannon LPN)2203 (Given - Provider: Janey Reese LPN) 0406 (Given - Provider: Janey Reese LPN)0840 (Given - Provider: Harika Mendoza RN)1255 (Given - Provider: Harika Mendoza RN) HYDROcodone-acetaminophe n (NORCO) 7.5-325 mg per tablet 1 Tablet (CANCELED) 1 Tablet, Oral, EVERY 4 HOURS PRN, Starting on Thu11/08/24 at 0748, Until Thu11/08/24 at 0923, Pain, Moderate, Pain, Severe, Routine, Previous Med: HYDROcodone-acetaminophe n (NORCO) 7.5-325 mg Tablet - Orig Sig - Take 1 Tablet by mouth every 8 hours as needed for Pain, Moderate or Pain, Severe. 09 (Given - Provider: SYLVIA Fonseac) LORazepam (ATIVAN) tablet 0.5 mg 0.5 mg, Oral, EVERY 8 HOURS PRN, Starting on Thu11/08/24 at 0748, Until Thu11/10/24 at 1604, Anxiety, Routine, Previous Med: LORazepam (ATIVAN) 0.5 mg tablet - Orig Sig - Take 1 Tablet (0.5 mg) by mouth every 8 hours as needed for Anxiety. 2058 (Given - Provider: Janey Reese LPN) magnesium HYDROXIDE (MILK OF MAGNESIA) oral suspension 30 mL(Linked Group 1) 30 mL, Oral, DAILY PRN, Starting on Thu11/08/24 at 0752, Until [place] 11/10/24 at 1604, Constipation, Routine melatonin tablet 3 mg 3 mg, Oral, NIGHTLY PRN, Starting on Thu11/08/24 at 0752, Until Thu11/10/24 at 1604, Insomnia, Routine methocarbamoL (ROBAXIN) tablet 500 mg 500 mg, Oral, EVERY 6 HOURS PRN, Starting on Thu11/08/24 at 0751, Until [place] 11/10/24 at 1604, Spasm, Routine, Previous Med: methocarbamoL (ROBAXIN) 500 mg tablet - Orig Sig - Take 1 Tablet (500 mg) by mouth every 6 hours as needed for Spasm. morphine 4 mg/mL injection 2 mg (COMPLETED) 2 mg, IV, EVERY 4 HOURS PRN, 2 doses, Starting on Thu11/08/24 at 1933, Until Thu11/08/24 at 2351, Pain (See admin instructions), Routine 2003 (Given - Provider: Kamille Dan RN)2350 (Given - Provider: Kamille Dan RN) nitroglycerin (NITROSTAT) tablet 0.4 mg 0.4 mg, Sublingual, EVERY 5 MINUTES PRN, Starting on Thu11/08/24 at 0750, Until [place] 11/10/24 at 1604, Chest Pain, Routine, Previous Med: nitroglycerin (NITROSTAT) 0.4 mg Tablet, Sublingual - Orig Sig - Place 0.4 mg under tongue. ondansetron (ZOFRAN) 4 mg/2 mL injection 4 mg 4 mg, IV, EVERY 6 HOURS PRN, Starting on Thu11/08/24 at 0752, Until Thu11/10/24 at 1604, Nausea/Emesis, Routine zinc OXIDE-cod liver oil (DESITIN) 40 % topical paste Topical, DAILY PRN, Starting on Thu11/08/24 at 1539, Until Thu11/10/24 at 1604, Rash or Redness, Routine No Frequency Medication Order 11/08/2024 11/09/2024 11/10/2024 IPRATROPIUM 0.5 MG-ALBUTEROL 3 MG (2.5 MG BASE)/3 ML NEBULIZATION SOLN (CABINET OVERRIDE) (COMPLETED) 1 dose, Starting on Thu11/08/24 at 0624, Until Thu11/08/24 at 0625, Megan Armendariz E: cabinet override [id number] (Given - Provider: Megan Armendariz) Linked Groups Order Group 1: magnesium HYDROXIDE (MILK OF MAGNESIA) oral suspension 30 mLJump to med 30 mL, Oral, DAILY PRN, Starting on Thu11/08/24 at 0752, Until [place] 11/10/24 at 1604, Constipation, Routine Or bisacodyL (DULCOLAX) rectal suppository 10 mgJump to med 10 mg, Rectal, DAILY PRN, Starting on Thu11/08/24 at 0752, Until Thu11/10/24 at 1604, Constipation, Routine documented in this encounter Additional Health Concerns Active Problems Noted Date Diagnosed Date Heart Failure Problem 05/12/2024 Infection Onset Date Last Indicated Resolved Time R/O Respiratory 11/08/2024 11/08/2024 11/08/2024 5 :41 AM CDT documented as of this encounter Care Teams Supervisor Assembly Relationship Specialty Start Date End Date Delta Wade MD [address] [address] PCP - General Family Practice 03/25/24 documented as of this encounter
--- OUTSIDE RECORDS SUMMARY | 2024-11-11 19:54 | XMS_ITS | Encounter Summary ---
Author Organization [facility] Address [address] [place] [address] Care Team Providers Care Solar Energy System Installer Name Role Phone Delta Wade MD Primary Care Provider [phone] Reason for Visit * Reason Comments Shortness of Breath Patient reports she has COPD and has been having a COPD exacerbation for approx 1hr. Reports this started after a breathing treatment. * Auth/Cert (Routine) Specialty Diagnoses / Procedures Referred By Marcelle smith Referred To Contact Emergency Medicine [facility] Emergency Department [address] [place] [phone] Phone: tel: fax: Referral ID Status Reason Start Date Expiration Date Visits Re quested Visits Authorized [id number] 1 1 Encounter Details Date Type Department Care Team ([facility] st Contact Info) Description 11/11/2024 7:54 PM CDT - 11/12/2024 12:59 AM CDT Emergency [facility] Emergency Department [address] [place] [phone] Aki Booth DO [address] [place] [address] Skin abrasion (Primary Dx); Dyspnea, [...] How often do you attend chur or scientology services? More than 4 times per year 06/13/2019 Do you belong to any clubs o r organizations such as rastafari groups, unions, fraternal or athletic groups, or [...] worry about transportation for future doctor visits, order picker medication, etc.? No 2024 Housing Stability [...] who hurts you emotionally and/or physically? No 11/12/2024 Food Insecurity Answer Date Recorded Patient needs follow up regardin 07/13/2024 Transportation Needs Answer Date Record ed Patient needs follow up regardin 07/13/2024 Housing Stability Answer Date Recorded Social/Environmental Concerns No concerns Utility Needs Answer Date Recorded Patient needs follow up regardin 07/13/2024 Comments No Sex and Gender Information Value Date Recorded Sex Assigned at Not on file Legal Sex Female 11:49 PM PACKAGER HAND Gender Identity Not on file Sexual Orientation [...] threatening problem but illness and symptoms can change management specialist time and may need to be rechecked. This is NOT the same as nothing being wrong, it means we did not find a life threatening cause of your symptoms. The discharge plan is: 1 - RETURN to the emergency department immediately - If you develop ANY new or worsening symptoms, or your symptoms fail to improve as expected or any concern 2 - [facility] frequently uses an outside radiology group to read CT scans and other imaging tests, and most xrays are read by me not a radiologist, these tests are ALL reviewed by [facility] radiologist the Next day, If you had any imaging studies and there is a change in the interpretation, [facility] will callyou and notify you. Wash [...] this discharge form, or having your responsible republican sign, you agree that you have received [...] encouraged to contact any present staff, the fleet service manager supervisor parking lot of the department or patient relations who may be reached at [phone] or in writing at the address -[facility], [address] [place] [address] Additional information If after having negative xrays for fracture, you are still hurting 7-10 days later, then you need to have the area rechecked PHARMACIES The longest open [facility] pharmacy in [place] for prescriptions is : [address] [facility] (The corner of [place] [address] [place]) ([phone]) The [facility] outpatient pharmacy is open M-F until 9 pm and until 4 pm on weekends PHONE NUMBERS If you do not have a primary doctor for follow you may call: [facility] Physician Referral at [facility] . [facility] If you smoke - consider quitting due to known bad effects of smoking on your health Thank you for coming to [facility] emergency room for your healthcare needs! [...] about your medications or other concerns, call [phone] Aki Booth D.O. documented in this encounter [...] 1 Each 4 naloxone (NARCAN) 4 mg/spray [place], Non-Aerosol EMERGENCY USE ONLY: Administer 1 spray (4 mg) in one nostril one time. May repeat in alternating nostrils every 2-3 min until responsive or EMS arrives. 2 Each 3 3 blood sugar diagnostic StripIndications: Type 2 diabetes mellitus without complication, without long-term current use of insulin ([facility]) Use to test blood glucose up to QID PRN symptoms. 100 Each 11 3 OneTouch Delica Plus Lancet 30 gauge USE TO test fasting blood glucose DAILY 3 Blood-Glucose Meter KitIndications:Ty pe 2 diabetes mellitus without complication, without long-term current use of insulin ([facility]) Use to test blood glucose up to TID PRN symptoms. 1 Each 3 documented as of this encounter Procedure Notes * Jonny Ferreira CNA - 11/11/2024 9:56 PM CDT VASCULAR ACCESS TEAM Peripheral IV insertion with lab collection PATIENT NAME: Le Diaz DATE OF : 1965 CSN: [id number] DATE: 11/11/2024 Room: [facility] Admit Date: 11/11/2024 Hospital day: LOS: [...] Le Diaz DATE OF : 1965 CSN: [id number] DATE: 11/11/2024 Room: [facility] Admit Date: 11/11/2024 Hospital day: LOS: [...] contained in EMR flowsheet Patient tolerated well. Jonny Ferreira CNA documented in this encounter ED [...] 11/11/2024 7:53 PM CDT Triage Protocol EKG [facility] EKG obtained [...] I advised patient to inform front end developer javascript html css nurse of any change in symptoms. The [...] Arthritis, Arthropathy, unspecified, site unspecified, Atrial flutter ([facility]), Bipolar affective disorder ([facility]), Breast cancer ([facility]) (2001), Breast mass (08/22/2010), Cervical neck pain with evidence of disc disease, Chronic hepatic failure ([facility]), Congenital absence of uterus, Congenital absence of vagina, Congenital anomaly, Congestive heart failure ([facility]), Coronary artery disease, Deep vein thrombosis (DVT) ([facility]) (2023), Depression (08/22/2010), Diabetes mellitus ([facility]) (2023), Difficult intravenous access, Dyspnea (08/15/2024), Dyspnea on exertion, Emphysema of lung (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) (2015), Neuropathy, NSTEMI (non-ST elevated myocardial infarction) ([facility]) (06/06/2023), NSTEMI (non-ST elevated myocardial infarction) ([facility]), Paroxysmal A-fib ([facility]), Paroxysmal atrial tachycardia, Pneumonia due to COVID-19 virus, Polycythemia, Primary hereditary hemochromatosis (12/13/2010), Unspecified essential hypertension, and Vaginal cancer ([facility]) (2019). SURGICAL: Patient has a past surgical [...] 5.4 (*) TCO2 (CALC) POC 36 (*) [facility] SITE POC No Charge INFLUENZA A/B, RSV [...] a normal sinus rhythm rate 96 normal OK normal QRS increased QTc at 510, there [...] [facility] Neurosurgery [address] [place] [address] Jerson Salas PA [address] [place] [address] 01/12/2025 1:40 PM CDT Office Visit [facility] Heart [facility] [address] [place] [address] Tresa Stockton, [place] [address] [place] [address] 04/19/2025 10:30 AM PACKAGER HAND Office Visit [facility] Endocrinology [facility] [address] [place] [address] James Lee MD [address] [place], [place] [address] Gricel Mcgovern, PA [address] [place] [address] Scheduled Orders Name Type Priority Associated Diagnoses Orde r Schedule BLOOD GAS VENOUS Lab Routine ONE TIME COLLECT NOW for 1 Occurrences starting 11/11/2024 until 11/11/2024 documented as of this encounter Goals Goal Patient Goal Type Associated Problems Recent Progress Patient-Stated? Author Heart Failure Goal Care Plan Heart Failure Problem Latonya Ashton LPN documented as of this encounter Procedures [...] BLOOD GAS VENOUS (11/11/2024 11:16 PM CDT) PH BLOOD POC 7.43 7.32 - 7.43 11/11/2024 11:16 PM T [facility] PCO2 POC 51(H) 38 - 50 mm Hg 11/11/2024 11:16 PM T [facility] PO2 POC 47(H) 25 - 40 mm Hg 11/11/2024 11:16 PM [facility] HCO3 (CALC) POC 34(H) 22 - 29 mmol/L 11/11/2024 11:16 PM [facility] HEMOGLOBIN POC 11.4(L) 12.0 - 18.0 g/dL 11/11/2024 11:16 PM [facility] BASE EXCESS POC 10(H) -2 - 3 mmol/L 11/11/2024 11:16 PM [facility] O2 SATURATION POC 76(H) 40 - 70 % 11/11/2024 11:16 PM [facility] SODIUM POC 137 135 - 145 mmol/L 11/11/2024 11:16 PM [facility] POTASSIUM POC 4.2 3.5 - 4.9 mmol/L 11/11/2024 11:16 PM [facility] HEMATOCRIT POC 34(L) 38 - 51 % 11/11/2024 11:16 PM [facility] PH TEMP CORRECT 7.43 7.32 - 7.43 11/11/2024 11:16 PM [facility] PCO2 TEMP CORRECT 51(H) 38 - 50 mm Hg 11/11/2024 11:16 PM [facility] PO2 TEMP CORRECT 47(H) 25 - 40 mm Hg 11/11/2024 11:16 PM [facility] SPECIMEN SOURCE, GASES POC Venous 11/11/2024 11:16 PM CDT [facility] CALCIUM IONIZED POC 5.4(H) 4.8 - 5.2 mg/dL 11/11/2024 11:16 PM CDT [facility] TCO2 (CALC) POC 36(H) 22 - 26 mmol/L 11/11/2024 11:16 PM CDT [facility] PUNC SITE POC No Charge 11/11/2024 11:16 PM CDT [facility] Blood, venous 11/11/2024 11: 16 PM CDT 11/11/2024 11:17 PM CDT Aki Booth DO ABG ORDERABLES Final R esult [facility] CLIA # [id number] [address] [place] [address] * INFLUENZA A/B, RSV AND COVID-19 PCR PANEL (11/11/2024 9:55 PM CDT) Pathologist [facility] COVID-19 PCR NOT DETECTED Not Detected 11/12/19 11:06 PM CDT [facility] Influenza A by PCR NOT DETECTED Not Detected 11/11/2024 11:06 PM CDT [facility] Influenza B by PCR NOT DETECTED Not Detected 11/11/2024 11:06 PM CDT [facility] RSV by PCR NOT DETECTED Not Detected 11/11/2024 11:06 PM CDT [facility] Upper Respiratory ENTIRE NASOPHARYNX / Unknown Collection / Unknown 11/11/2024 9:55 PM CDT 11/11/2024 10:10 PM CDT Narrative [facility] - 11/11/2024 11:06 PM CDT This test [...] DO MICROBIOLOGY - GENERAL ORDERABLES Final Result [facility] CLIA # [id number] [address] [address] [place] [address] * (ABNORMAL) COMPREHENSIVE METABOLIC PANEL (11/11/2024 9:47 PM CDT) SODIUM 140 136 - 145 mmol/L 11/11/2024 10:34 PM CDT [facility] POTASSIUM 3.6 3.5 - 5.1 mmol/L 11/11/2024 10:34 PM CDT [facility] CHLORIDE 101 98 - 107 mmol/L 11/11/2024 10:34 PM CDT [facility] CO2 25 22 - 29 mmol/L 11/11/2024 10:34 PM CDT [facility] CALCIUM 9.4 8.6 - 10.0 mg/dL 11/11/2024 10:34 PM CDT [facility] BUN 32(H) 6 - 20 mg/dL 11/11/2024 10:34 PM CDT [facility] CREATININE 0.69 0.51 - 0.95 mg/dL 11/11/2024 10:34 PM CDT [facility] GLUCOSE 296(H) 74 - 99 mg/dL 11/11/2024 10:34 PM CDT [facility] TOTAL PROTEIN 6.1(L) 6.4 - 8.3 g/dL 11/11/2024 10:34 PM CDT [facility] ALBUMIN 3.5 3.5 - 5.2 g/dL 11/11/2024 10:34 PM CDT [facility] BILIRUBIN TOTAL 0.3 0.0 - 1.0 mg/dL 11/11/2024 10:34 PM T [facility] ALKALINE PHOSPHATASE 115(H) 35 - 104 U/L 11/11/2024 10:34 PM CDT [facility] AST 25 10 - 35 U/L 11/11/2024 10:34 PM CDT [facility] ALT 40(H) <=35 U/L 11/11/2024 10:34 PM CDT [facility] GFR >60 >=60 mL/min/1.7 3 sq meter 11/11/2024 10:34 PM CDT [facility] Comment:eGFR calculated with 2020 CKD-EPI equation. Vegetarian diet, extremely high or low muscle mass, and may affect results. Cystatin C with Glomerular Filtration Rate is a suitable alternative for these patients. ANION GAP 14 9 - 20 mmol/L 11/11/2024 10:34 PM T [facility] Blood Venipuncture / Unknown 11/11/2024 9:47 PM CDT 11/11/2024 9:59 PM CDT us Rico Bray NP CHEMISTRY ORDERABLES Final Res ult [facility] CLIA # [id number] [address] [place] [address] * (ABNORMAL) CBC WITH DIFFERENTIAL (11/11/2024 9:47 PM CDT) Pathologist [facility] WBC 9.0 4.8 - 10.8 K/uL 11/11/2024 10:07 PM CDT [facility] NRBCS 3(H) <1 % 11/11/2024 10:07 PM CDT [facility] RBC 3.74(L) 4.20 - 5.40 M/uL 11/11/2024 10:07 PM CDT [facility] HEMOGLOBIN 11.1(L) 12.0 - 16.0 g/dL 11/11/2024 10:07 PM CDT [facility] HEMATOCRIT 35.8(L) 36.0 - 46.0 % 11/11/2024 10:07 PM [facility] MCV 95.7 84.0 - 103.0 fL 11/11/2024 10:07 PM [facility] MCH 29.7 27.0 - 34.0 pg 11/11/2024 10:07 PM [facility] MCHC 31.0 30.0 - 35.0 g/dL 11/11/2024 10:07 PM [facility] PLATELETS 203 140 - 440 K/uL 11/11/2024 10:07 PM [facility] MPV 10.8 8.9 - 12.8 fL 11/11/2024 10:07 PM [facility] RDW 18.9(H) 11.0 - 14.5 % 11/11/2024 10:07 PM [facility] RDW-STDEV 66.3(H) 37.0 - 54.0 fL 11/11/2024 10:07 PM [facility] NEUTROPHILS 60 42 - 75 % 11/11/2024 10:07 PM [facility] LYMPHOCYTES 26 24 - 44 % 11/11/2024 10:07 PM [facility] MONOCYTES 11(H) 2 - 10 % 11/11/2024 10:07 PM [facility] EOSINOPHILS 0 0 - 7 % 11/11/2024 10:07 PM [facility] BASOPHILS 0 0 - 1 % 11/11/2024 10:07 PM [facility] IMMATURE GRANULOCYTES 3(H) 0 - 2 % 11/11/2024 10:07 PM [facility] NEUTROPHIL ABSOLUTE 5.45 2.00 - 8.00 K/uL 11/11/2024 10:07 PM [facility] LYMPHOCYTE ABSOLUTE 2.30 1.20 - 4.00 K/uL 11/11/2024 10:07 PM [facility] MONOCYTE ABSOLUTE 0.98(H) 0.10 - 0.60 K/uL 11/11/2024 10:07 PM CDT [facility] EOSINOPHIL ABSOLUTE 0.03 0.00 - 0.70 K/uL 11/11/2024 10:07 PM CDT [facility] BASOPHILS ABSOLUTE 0.02 0.00 - 0.20 K/uL 11/11/2024 10:07 PM CDT [facility] IMMATURE GRANULOCYTES ABSOLUTE 0.24(H) 0.00 - 0.10 K/uL 11/11/2024 10:07 PM CDT [facility] SMEAR REVIEWED: NA - Not Applicable 11/11/2024 10:07 PM CDT [facility] Blood Venipuncture / Unknown 11/11/2024 9:47 PM CDT 11/11/2024 9:58 PM CDT Rico Bray NP HEMATOLOGY ORDERABLES Final Re sult [facility] CLIA # [id number] [facility] [address] [address] * XR FEMUR 2 VW BILAT (11/11/2024 [...] bodies. IMPRESSION: No identified fracture or dislocation. Aki Booth DO DIAGNOSTIC IMAGING ORDE RABLES Final Result * XR WRIST 3+ VW [...] carpometacarpal joint. Aki Booth DO DIAGNOSTIC IMAGING ORDE NARCISO Final Result * XR TIBIA AND FIBULA [...] and fibula. Aki Booth DO DIAGNOSTIC IMAGING ORDRoman STUART Final Result * XR CHEST PA OR [...] INTERFACE SYSTEM - 11/12/2024 8:50 AM CDT [place] [id number] Test Date: 2024-11-11 Pat Name: LE DIAZ Department: 11 Room: Gender: Female Electrical Assemblies Supervisor: [email or web address] : 1965 Requested By: Order Number: [id number] Reading MD: Echo Tapia Measurements Intervals [place] Rate: 96 P: 30 OK: 158 QRS: 33 QRSD: 76 T: 25 QT: 404 QTc: 510 Interpretive Statements Sinus rhythm with premature atrial complexes Possible Inferior infarct, age undetermined Prolonged QT Abnormal ECG Electronically Signed On 11-12-2024 8:50:40 CDT by Echo Tapia Procedure Note Provider, Historical - 11/12/[address] [address] Test Date: 2024-11-11 Pat Name: LE DIAZ Department: 11 Room: Gender: Female Electrical Assemblies Supervisor: [email or web address] : 1965 Requested By: Order Number: [id number] Reading MD: Echo Tapia Measurements Intervals [place] Rate: 96 P: 30 OK: 158 QRS: 33 QRSD: 76 T: 25 QT: 404 QTc: 510 Interpretive Statements Sinus rhythm with premature atrial complexes Possible Inferior infarct, age undetermined Prolonged QT Abnormal ECG Electronically Signed On 11-12-2024 8:50:40 CDT by Echo Tapia us Rico Bray LOCKSTITCH COAT JOINER ECG ORDERABLES Final Result INTERFACE SYSTEM Refer [...] IV, EVERY 1 HOUR PRN, Starting on 11/11/24 at 2024, Until 11/12/24 at 0300, Pain, Routine 2155 (Given - Provider: Meir Vences, MARICARMEN)2333 (Given - Provider: Scooby Arellano RN) 0046 (Given - Provider: Meir Vences RN) documented in this encounter Additional Health Concerns Active Problems Noted Date Diagnosed Date Heart Failure Problem 05/12/2024 Infection Onset Date Last Indicated Resolved Time R/O COVID-19 11/11/2024 11/11/2024 11/11/2024 11:0 6 PM CDT documented as of this encounter Care Teams Solar Energy System Installer Relationship Specialty Start Date End Date Delta Wade MD [address] [address] PCP - General Family Practice 03/25/24 documented as of this encounter
--- OUTSIDE RECORDS SUMMARY | 2024-11-12 21:40 | XMS_ITS | Encounter Summary ---
Author Organization [facility] Address [address] [place] [address] Care Team Providers Care Painter Sign Maintenance Name Role Phone Delta Wade MD Primary Care Provider [phone] Reason for Visit * Reason Comments Shortness of Breath Onset 2 hours prior to arrival Encounter Details Date Type Department Care Team (Late st Contact Info) Description 11/12/2024 9:40 PM CDT - 11/12/2024 9:42 PM CDT Emergency [facility] Emergency Department [address] [place] [address] Discharge Disposition: Left Against Medical Advice Social [...] worry about transportation for future doctor visits, brass pickler medication, etc.? No 2024 Housing Stability [...] on file Legal Sex Female 11:49 PM EXPERIMENTAL TECHNICIAN Gender Identity Not on file Sexual [...] 1 Each 4 naloxone (NARCAN) 4 mg/spray [place], Non-Aerosol EMERGENCY USE ONLY: Administer 1 spray [...] Each 3 documented as of this encounter ED Notes [...] their stay. I advised patient to inform medical front desk coordinator nurse of any change in symptoms. The patient's evaluation and anticipated ongoing care plan was discussed in detail with them to make sure theyare aware of what to expect during their stay. documented in this encounter Plan of Treatment Upcoming Encounters Date Type Department Care Team (Late st Contact Info) Description 11/14/2024 3:30 PM CDT Office Visit [facility] Neurosurgery [address] [place] [address] Jerson Salas PA [address] [place] [address] 01/12/2025 1:40 PM CDT Office Visit [facility] Cardiology Heart [facility] [address] [place] [address] Tresa Stockton, [place] [address] [place] [address] 04/19/2025 10:30 AM EXPERIMENTAL TECHNICIAN Office Visit [facility] Endocrinology [facility] [address] [place] [address] James Lee MD [address] [place] [address] Gricel Mcgovern PA [address] [facility] [address] [place] [address] documented as of this encounter Goals Goal Patient Goal Type Associated Problems Recent Progress Patient-Stated? Author Heart Failure Goal Care Plan Heart Failure Problem No Latonya Anguiano LPN documented as of this encounter Visit Diagnoses Not on filedocumented in this encounter Additional Health Concerns Active Problems Noted Date Diagnosed Date Heart Failure Problem 05/12/2024 documented as of this encounter Care Teams Painter Sign Maintenance Relationship Specialty Start Date End Date Delta Wade MD 5 [facility] [address] [place] [address] PCP - General Family Practice 03/25/24 documented as of this encounter
--- OUTSIDE RECORDS SUMMARY | 2024-11-13 01:16 | XMS_ITS ---
Author Organization [facility] Address [address] [place] [address] Phone Care Team Providers Care Professor Of Archaeology Name Role Phone Delta Wade MD Primary Care Provider [phone] Active Problems Problem Noted Date Diagnosed Date [...] distress 07/19/2024 Macrocytosis 07/19/2024 Chronic combined systolic an d diastolic congestive heart failure 07/18/2024 Cellulitis of right lower extremity 07/14/2024 [...] 06/14/2019 H/O vaginal surgery 06/14/2019 Atherosclerosis of picayune co ronary artery of picayune heart without angina pectoris 06/14/2019 Urinary incontinence [...] Resolved Date Shortness of breath 10/31/2024 11/05/19 Other chest pain 10/31/2024 11/04/2024 syncopal episode [...]
--- OUTSIDE RECORDS SUMMARY | 2024-11-13 01:16 | XMS_ITS | Encounter Summary ---
Author Organization [facility] Address [address] [place] [address] Care Team Providers Care [facility] Shift Lead Name Role Phone Delta Wade MD Primary Care Provider [phone] Encounter Details Date Type Department Care Team ([facility] st Contact Info) Description 06/16/2024 Telephone [facility] Ophthalmology [address] [place] [address] Eduardo Craven MD [address] [place] [address] Social History Tobacco Use Types Packs/Day [...] often do you attend chur ch or baptist services? 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 Gender Identity Not on file Sexual Orientation [...] 11/14/2024 3:30 PM CDT Office Visit [facility] Neuro[facility] [address] [place] [address] Jerson Salas PA [address] [place] [address] 01/12/2025 1:40 PM CDT Office Visit [facility] [address] [place] [address] Tresa Stockton, [facility] [address] [place] [address] 04/19/2025 10:30 AM DIGITAL DATA ANALYST Office Visit [facility] Endocrinology [facility] [place] [place] [address] [place] [address] James Lee MD [address] [place] [address] Gricel Mcgovern PA [address] [place] [address] documented as of this encounter [...] 11/05/2024 11/05/2024 11/06/2024 1 0:06 AM CDT R/O Respiratory 11/08/2024 11/08/2024 11/08/2024 5 :41 AM CDT R/O COVID-19 11/11/2024 11/11/2024 11/11/2024 11:0 6 PM CDT documented as of this encounter Care Teams [facility] Shift Lead Relationship Specialty Start Date End Date Delta Wade MD [address] [address] PCP - General Family Practice 03/25/24 documented as of this encounter
--- OUTSIDE RECORDS SUMMARY | 2024-11-13 01:16 | XMS_ITS | Encounter Summary ---
Author Organization [facility] Address [address] [place] [address] Care Team Providers Care Executive Director Name Role Phone Delta Wade MD Primary Care Provider Reason for Visit * Reason Comments Hospital Follow Up Encounter Details Date Type Department Care Team ([facility] st Contact Info) Description 05/13/2024 Telephone [facility] Medicine [place] [address] [place] [address] Kay Lima, [facility] [address] [place] [address] Hospital Follow Up Social History [...] How often do you attend chur or holiness services? More than 4 times per year 06/13/2019 Do you belong to any clubs o r organizations such as confucianist groups, unions, fraternal or athletic groups, or [...] on file Legal Sex Female 11:49 PM ENVIRONMENTAL CONFLICT MANAGER Gender Identity Not on file Sexual Orientation Not on file documented as of this encounter Miscellaneous Notes * Telephone Encounter - Danyell Rashid - 05/13/2024 12:30 PM ENVIRONMENTAL CONFLICT MANAGER Called pt back. Could not leave voicemail. If patient calls back please schedule for hospital follow up appointment for the next opening spot. Can be vv if patient cannot travel to clinic. RONMENTAL CONFLICT MANAGER * Telephone Encounter - Gypsy Gerber - 05/13/2024 12:02 PM CST Copied from [facility] #[id number]. Topic: Reschedule/Cancel Appointment/Late Arrival >> May 13, [...] of hospital discharge? 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 [facility] RONMENTAL CONFLICT MANAGER documented in this encounter Plan of Treatment Upcoming Encounters Date Type Department Care Team (Late st Contact Info) Description 11/14/2024 3:30 PM CDT Office Visit [facility] Neurosurgery [address] [place] [address] Jerson Salas PA [address] [place] [address] 01/12/2025 1:40 PM CDT Office Visit [facility] [address] [place] [address] Tresa Stockton, GRAVITY METER OBSERVER [address] [place] [address] 04/19/2025 10:30 AM ENVIRONMENTAL CONFLICT MANAGER Office Visit [facility] [address] [place] [address] James Lee MD [address] [place] [address] Gricel Mcgovern, AND[place] [address] [place] [address] documented as of this encounter [...] R/O COVID-19 05/13/2024 05/13/2024 05/14/2024 4:15 AM ENVIRONMENTAL CONFLICT MANAGER R/O Respiratory 06/30/2024 06/30/2024 06/30/2024 1 0:36 [...] documented as of this encounter Care Teams Executive Director Relationship Specialty Start Date End Date Delta Wade MD [address] [address] PCP - General Family Practice 03/25/24 documented as of this encounter
--- OUTSIDE RECORDS SUMMARY | 2024-11-13 01:17 | XMS_ITS | Encounter Summary ---
Author Organization [facility] Address [address] [place] [address] Care Team Providers Care Felting Machine Operator Helper Name Role Phone Delta Wade MD Primary Care Provider Reason for Visit * Reason Onset Date Comments Needs Appointment 11/09/2024 Encounter Details Date Type Department Care Team (Late st Contact Info) Description 11/09/2024 Telephone [facility] Ophthalmology [place] [address] [address] Eduardo Craven MD [address] [place] [address] Needs Appointment Social History Tobacco Use Types Packs/Day Years [...] often do you attend chur ch or rastafari services? More than 4 times per year [...] worry about transportation for future doctor visits, grain picker medication, etc.? 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 She states she needsto be worked in soon because she is having a lot of issues with her vision. If you could please give her a call back. Thanks. documented in this encounter Plan of Treatment Upcoming Encounters Date Type Department Care Team (Late st Contact Info) Description 11/14/2024 3:30 PM CDT Office Visit [facility] Neurosurgery [address] [place] [address] Jerson Salas PA [address] [place] [address] 01/12/2025 1:40 PM CDT Office Visit [facility] [address] [place] [address] Tresa Stockton, EQUIPMENT MAINTENANCE TECH [address] [facility] [address] [place] [address] 04/19/2025 10:30 AM SCREENING TECH Office Visit [facility] [address] [place] [address] James Lee MD [address] [place] [address] Gricel Mcgovern, AND[place] [address] [place] [address] documented as of this encounter Goals Goal Patient Goal Type Associated Problems Recent Progress Patient-Stated? Author Heart Failure Goal Care Plan Heart Failure Problem No Latonya Anguiano LPN documented as of this encounter Visit Diagnoses Not on filedocumented in this encounter Additional Health Concerns Active Problems Noted Date Diagnosed Date Heart Failure Problem 05/12/2024 documented as of this encounter Care Teams Felting Machine Operator Helper Relationship Specialty Start Date End Date Delta Wade MD [address] [address] PCP - General Family Practice 03/25/24 documented as of this encounter
--- OUTSIDE RECORDS SUMMARY | 2024-11-13 01:17 | XMS_ITS | CCD ---
Author Name Interface, [id number] lity Address [address] [facility] [place] [address] [facility] Address [address] [place] [address] Care Team Providers Care Cone Examiner Name Role Phone Anika VALLADARES, Allen Unavailable [...]
--- OUTSIDE RECORDS SUMMARY | 2024-11-13 01:17 | XMS_ITS | CCD ---
Author Name Interface, [id number] lity Address [address] [facility] [place] [address] [facility] Address [address] [place] [address] Care Team Providers Care Principal Cloud Architect Name Role Phone Anika VALLADARES, Allen Unavailable [...]
--- OUTSIDE RECORDS SUMMARY | 2024-11-13 01:17 | XMS_ITS | Encounter Summary ---
Author Organization [facility] Address [address] Gonzalez: Epic Prelude ADT [place] [address] Care Team Providers Care Product Planner Name Role Phone Delta Wade MD Primary Care Provider [phone] Encounter Details Date Type Department Care Team (Latest Contact Info) Description 11/11/2024 Travel Social History Tobacco Use Types Packs/Day [...] Never 06/13/2019 How often do you attend [facility] or rastafari services? More than 4 times [...] worry about transportation for future doctor visits, poultry picker medication, etc.? 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 Gender Identity Not on file Sexual Orientation Not on file documented as of this encounter Plan of Treatment Upcoming Encounters Date Type Department Care Team (Late st Contact Info) Description 11/14/2024 3:30 PM CDT Office Visit [facility] Neurosurgery [address] [place] [address] Jerson Salas PA [address] [place] [address] 01/12/2025 1:40 PM CDT Office Visit [facility] [address] [place] [address] Tresa Stockton, [facility] [address] [place] [address] 04/19/2025 10:30 AM WIRE BOUND BOX MACHINE HELPER Office Visit [facility] Endocrinology [facility] [address] [place] [address] James Lee MD [address] [place] [address] Gricel Mcgovern PA [address] [place] [address] documented as of this encounter [...] documented as of this encounter Care Teams Product Planner Relationship Specialty Start Date End Date Delta Wade MD [address] [address] PCP - General Family Practice 03/25/24 documented as of this encounter
--- OUTSIDE RECORDS SUMMARY | 2024-11-13 01:17 | XMS_ITS | Encounter Summary ---
Author Organization [facility] Address [address] Gonzalez: Epic Prelude ADT [place] [address] Care Team Providers Care Water Resource Consultant Name Role Phone Delta Wade MD Primary Care Provider [phone] Encounter Details Date Type Department Care Team (Latest Contact Info) Description 11/12/2024 Travel Social History Tobacco Use Types Packs/Day [...] Never 06/13/2019 How often do you attend [facility] or episcopal services? More than 4 times per year 06/13/2019 Do you belong to any clubs o r organizations such as religious groups, unions, fraternal or athletic groups, or [...] worry about transportation for future doctor visits, pepper picker medication, etc.? 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 Gender Identity Not on file Sexual Orientation Not on file documented as of this encounter Plan of Treatment Upcoming Encounters Date Type Department Care Team (Late st Contact Info) Description 11/14/2024 3:30 PM CDT Office Visit [facility] Neurosurgery [address] [place] [address] Jerson Salas PA [address] [place] [address] 01/12/2025 1:40 PM CDT Office Visit [facility] [address] [place] [address] Tresa Stockton, [facility] [address] [place] [address] 04/19/2025 10:30 AM DAIRY TECHNICIAN Office Visit [facility] Endocrinology [facility] [address] [place] [address] James Lee MD [address] [place] [address] Gricel Mcgovern PA [address] [place] [address] documented as of this encounter Goals Goal Patient Goal Type Associated Problems Recent Progress Patient-Stated? Author Heart Failure Goal Care Plan Heart Failure Problem No Latonya Anguiano LPN documented as of this encounter Visit Diagnoses Not on filedocumented in this encounter Additional Health Concerns Active Problems Noted Date Diagnosed Date Heart Failure Problem 05/12/2024 documented as of this encounter Care Teams Water Resource Consultant Relationship Specialty Start Date End Date Delta Wade MD [address] [address] PCP - General Family Practice 03/25/24 documented as of this encounter
--- OUTSIDE RECORDS SUMMARY | 2024-11-13 01:17 | XMS_ITS | Clinical Summary ---
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 1 Each 023 Active blood sugar diagnostic StripIndication s:Type 2 diabetes mellitus without complication, without long-term current use of insulin ([facility]) Use to test blood glucose up to QID PRN symptoms. 100 Each 11 023 Active naloxone (NARCAN) 4 mg/spray [place], Non-Aerosol EMERGENCY USE ONLY: Administer 1 spray (4 mg) in one nostril one time. May repeat in alternating nostrils every 2-3 min until responsive or EMS arrives. 2 Each 3 023 Active portable oxygenIndicatio ns:Chronic obstructive pulmonary disease, unspecified COPD type ([facility]),Oxyge n dependent Face to Face completed within 30 days: yes Length of Need: 99 months By: Nasal Cannula Continuously at 3 L/min. 1 Each 024 Active fluorouraciL (EFUDEX) 5 % Cream Active LORazepam (ATIVAN) 0.5 mg tabletIndicatio ns:Anxiety state Take 1 Tablet (0.5 mg) by mouth every 8 hours as needed for Anxiety. 20 Tablet Active OLANZapine (ZyPREXA) 10 mg tablet Take 10 mg by mouth daily at bedtime. 025 Active aspirin (CARTER CHEWABLE) 81 mg Tablet, [...] subcutaneous injection 3 times daily with meals. 025 Active oxygen home delivery Home Oxygen Concentrator yes at 3 L/M Rest, 3 L/M Activity, 3 L/M Sleep, Delivery Device: Nasal Cannula Portability: yes, 3 L/M Rest, L/M Activity, May provide device best for patient needs(E system,home fill, conserving device) Length of Need: 99 months 1 Each 025 Active triamcinolone acetonide (KENALOG) 0.1 % OintmentIndicat ions:Dermatitis Apply to affected area 2 times daily as needed for Other (See Comment) (rash). 10 Gram 025 Active levalbuterol (XOPENEX) 1.25 mg/3 mL Solution [...] as needed for Spasm. 20 Tablet Active zinc OXIDE-cod liver oil (DESITIN) 40 % Paste Apply to affected area see administration instructions. 57 Gram Active benzonatate (TESSALON) 100 mg capsule Take 1 Capsule (100 mg) by mouth every 4 hours as needed for Cough. 60 Capsule 1 Active guaiFENesin (MUCINEX) 600 mg Extended Release Biphasic tablet Take 1 Tablet (600 mg) by mouth every 12 hours for 14 days. 28 Tablet 025 2024 Active predniSONE (DELTASONE) 20 mg tablet Take 2 Tablets (40 mg) by mouth daily with breakfast for 5 days. 10 Tablet 025 2024 Active TechLITE Pen Needle 29 gauge x 1/2 Needle USE directed with Josie. 023 2024 Discontinued promethazine-de xtromethorphan (PHENERGAN-DM) 6.25-15 mg/5 mL syrup Take 10 mL by mouth every 4 hours as needed for Cough. 024 2024 Discontinued warfarin (COUMADIN) 10 mg tablet Take 1 Tablet by mouth daily. 024 2024 Discontinued tiZANidine (ZANAFLEX) 2 mg Tablet Take 2 mg by mouth every 8 hours as needed. 024 2024 Discontinued Lantus Solostar U-100 Insulin 100 unit/mL (3 mL) solution for injection Inject 25 Units by subcutaneous injection daily at bedtime. 025 2024 Discontinued ranolazine ER (RANEXA) 500 mg Extended Release 12 hour tablet Take 1 Tablet (500 mg) by mouth every 12 hours. 60 Tablet 1 025 2024 Discontinued budesonide 160 mcg-glycopyr 9 mcg-formot 4.8 mcg/actuation HFA inhaler Take 2 Puffs by inhalation 2 times daily. 60 Each 1 025 2024 Discontinued Lidocaine 4 % Adhesive Patch, Medicated Back pain 6 Patch 025 2024 Discontinued doxycycline hyclate (VIBRAMYCIN) 100 mg tablet Take 1 Tablet (100 mg) by mouth 2 times daily. 20 Tablet 025 2024 Discontinued enoxaparin (LOVENOX) 100 mg/mL injection [...] inhalation 2 times daily. 60 Each 1 2024 Discontinued ranolazine ER (RANEXA) 500 mg [...] with breakfast for 2 days. 4 Tablet 2024 Discontinued predniSONE (DELTASONE) 20 mg tablet Take 2 Tablets (40 mg) by mouth daily with breakfast for 2 days. 4 Tablet 025 2024 Discontinued ticagrelor (Brilinta) 90 mg Tablet Take 90 mg by mouth 2 times daily. 025 2024 Discontinued predniSONE (DELTASONE) 20 mg tablet Take 2 Tablets (40 mg) by mouth daily with breakfast for 3 days. 6 Tablet 025 2024 Discontinued doxycycline (MONODOX) 100 mg Capsule Take 1 Capsule (100 mg) by mouth every 12 hours for 3 days. 6 Capsule 025 2024 Hospital, Clinic, or Other Facility Administered [...] Chronic anticoagulation 08/09/2024 CAD (coronary atherosclerotic disease) 05/15/202 5 Morbid obesity due to excess calories 08/04/2024 [...] anxiety disorder) 12/02/2022 GERD (gastroesophageal reflux disease) 3 Opioid dependence 12/02/2022 History of cancer [...] 06/14/2019 H/O vaginal surgery 06/14/2019 Atherosclerosis of [place] co ronary artery of [place] heart without angina pectoris 06/14/2019 Urinary incontinence [...] Encounters Date Type Department Care Team Description 11/12/2024 9:40 PM CDT - 11/12/2024 9:42 PM CDT Emergency [facility] [address] [place] [phone] Discharge Disposition: Left Against Medical Advice 11/12/2024 Travel 11/11/2024 7:54 PM CDT - 11/12/2024 12:59 AM CDT Emergency [facility] [address] [place] [phone] Aki Booth DO Skin abrasion (Primary Dx); Dyspnea, unspecified type Discharge Disposition: Home or Self Care 11/11/2024 Travel 11/09/2024 Telephone [facility] [place] [address] [phone] Eduardo Craven MD Needs Appointment 11/08/2024 4:05 AM CDT - 11/10/2024 2:03 PM CDT Hospital Encounter [address] [place] [phone] Jonny Bowers MD Bandaru, Kiran Babu, MD COPD with exacerbation ([facility]/HCC) Discharge Disposition: Home or Self Care 11/07/2024 11:50 AM CDT - 11/07/2024 11:59 PM CDT Hospital Encounter [facility] [address] [place] [address] Ambulance, [facility] Discharge Disposition: Short term [facility] 11/05/2024 4:22 PM CDT - 11/07/2024 3:04 PM CDT Hospital Encounter [facility] [address] [place] [phone] Aki Booth DO Abbas, Muhammad Khalid, MD Nagotu Kambagiri, Sharada, MD COPD exacerbation ([facility]) Discharge Disposition: Home or Self Care 10/31/2024 6:02 AM CDT - 11/04/2024 4:24 PM CDT Hospital Encounter [facility] [address] [place] [phone] Aggie Rivas, Danyell Diaz MD Kuppi Reddy, Madhavi, MD Siddiqi, Talha, MD Syncope Discharge Disposition: Home or Self Care 10/29/2024 11:32 PM CDT - 10/30/2024 12:54 AM CDT Emergency [facility] [address] [place] [phone] Discharge Disposition: Left Against Medical Advice 10/28/2024 Telephone [facility] [address] [place] [phone] Veronika Yusuf RN Anticoagulation 10/26/2024 3:29 PM CDT - 10/29/2024 12:37 PM CDT Hospital Encounter [facility] [address] [place] [phone] Haven Joshi DO Abbas, Muhammad Khalid, MD McGinnis, Melissa Mae, MD COPD exacerbation ([facility]) Discharge Disposition: Home or Self Care 10/26/2024 Travel 10/20/2024 5:35 PM CDT - 10/20/2024 10:25 PM CDT Emergency [facility] [address] [place] [phone] Laron Hanson DO Beard, Courtney Elizabeth, MD Shortness of breath (Primary Dx); Bilateral upper abdominal pain Discharge Disposition: Home or Self Care 10/20/2024 Travel 10/16/2024 1:28 AM CDT - 10/19/2024 11:37 AM CDT Hospital Encounter [facility] [address] [place] [phone] Slim Galan DO Salana, Hari Krishna, MD Patel, Taksh, MD Acute on chronic hypoxic respiratory failure (CMS/HCC) Discharge Disposition: Home or Self Care 10/16/2024 Travel 10/13/2024 Telephone [facility] [place] [address] [place] [phone] Eduardo Craven MD Appoinment request 10/12/2024 Telephone [facility] [place] [address] [place] [phone] Delta Wade MD Erroneous encounter-disregard 10/10/2024 3:33 AM CDT - 10/11/2024 3:29 PM CDT Hospital Encounter [facility] [address] [place] [phone] Anita López MD Bajor, Conrad Mitchell, DO [place], Jasper Gutierrez MD Acute respiratory distress Discharge Disposition: Home or Self Care 10/10/2024 Travel 10/08/2024 6:07 PM CDT - 10/08/2024 10:40 PM CDT Emergency [facility] [address] [place] [phone] Anderson Marie DO COPD with exacerbation (CMS/HCC) (Primary Dx) Discharge Disposition: Home or Self Care 10/08/2024 Travel 10/07/2024 Telephone [facility] [place] [address] [place] [phone] Eduardo Craven MD Documentation Only 10/07/2024 Telephone [facility] Family Medicine [place] [address] [place] [address] Ryann Burk MD Question; Patient Communication 10/04/2024 Orders Only [facility] Neurosurgery [address] [place] [phone] Jerson Salas PA Closed fracture of first lumbar vertebra, unspecified fracture morphology, initial encounter ([facility]) (Primary Dx) 10/01/2024 2:44 PM CDT - 10/03/2024 1:00 PM CDT Hospital Encounter [facility] [address] [place] [phone] Huy Ornelas MD Patel, Taksh, MD Mady, Mohamed Hamdy Ahmed Mohamed, MD Kuppi Reddy, Madhavi, MD Chest pain Discharge Disposition: Home or Self Care 09/28/2024 4:25 PM CDT - 09/28/2024 5:54 PM CDT Emergency [facility] [address] [place] [phone] Austin Robertson MD Montana, Robert C, MD Drug-seeking behavior (Primary Dx) Discharge Disposition: Left Against Medical Advice 09/22/2024 11:44 PM CDT - 09/23/2024 9:48 AM CDT Emergency [facility] Department [address] [place] [phone] Discharge Disposition: Left without being seen 09/22/2024 Travel 09/16/2024 11:40 PM CDT - 09/16/2024 11:41 PM CDT Emergency [facility] [address] [place] [phone] Discharge Disposition: Left without being seen 09/12/2024 9:13 PM CDT - 09/15/2024 12:26 PM CDT Hospital Encounter [facility] [address] [place] [phone] Robbie Yen DO Abbas, MD Esperanza Soto, MD La Perez, Michael Mathew MD COPD exacerbation ([facility]/HCC) Discharge Disposition: Home or Self Care 09/10/2024 8:59 PM CDT - 09/11/2024 12:42 AM CDT Emergency [facility] [address] [place] [address] Layton Barrow MD Chronic hypoxemic respiratory failure ([facility]/HCC) (Primary Dx); Type 2 diabetes mellitus with hyperglycemia, with long-term current use of insulin ([facility]); Pulmonary emphysema, unspecified emphysema type ([facility]) Discharge Disposition: Home or Self Care 09/10/2024 12:46 PM CDT - 09/10/2024 11:59 PM CDT Hospital Encounter [facility] [address] [place] [address] Don Causey DO Discharge Disposition: Home or Self Care 09/10/2024 11:40 AM CDT - 09/10/2024 11:59 PM CDT Hospital Encounter [facility] [place] [address] [place] [address] Don Causey, Discharge Disposition: Home or Self Care 09/09/2024 10:42 PM CDT - 09/09/2024 10:46 PM CDT Emergency [facility] [address] [place] [address] Discharge Disposition: Left without being seen 09/09/2024 5:38 AM CDT - 09/09/2024 12:01 PM CDT Emergency [facility] [address] [place] [address] Cassius Sanderson MD Acute on chronic congestive heart failure, unspecified heart failure type ([facility]/HCC) (Primary Dx) Discharge Disposition: Home or Self Care 09/09/2024 Travel 09/01/2024 Orders Only [facility] Neuro[facility] [address] [place] [phone] Jerson Salas PA Closed fracture of first lumbar vertebra, unspecified fracture morphology, initial encounter ([facility]) (Primary Dx) 08/29/2024 7:55 PM CDT - 08/30/2024 2:43 PM CDT Emergency [facility] [address] [place] [phone] Danitza Wayne MD Mady, Mohamed Hamdy Ahmed Mohamed, MD COPD with exacerbation ([facility]) (Primary Dx) Discharge Disposition: Home or Self Care 08/23/2024 Telephone [facility] [address] [place] [phone] Veronika Yusuf RN Anticoagulation 08/22/2024 4:18 PM CDT - 08/26/2024 6:26 PM CDT Hospital Encounter [facility] [address] [place] [address] Austin Robertson MD Abbas, MD Lacie Soto Abhaya, MD COPD exacerbation ([facility]) Discharge Disposition: Home or Self Care 08/22/2024 Travel 08/20/2024 9:19 PM CDT - 08/20/2024 9:22 PM CDT Emergency [facility] [address] [place] [phone] Discharge Disposition: Left without being seen 08/20/2024 Travel 08/18/2024 2:20 AM CDT - 08/18/2024 3:03 PM CDT Hospital Encounter [facility] [address] [place] [phone] Danny Mclean MD Gibert, Christopher L, MD Abbas, MD La Soto, Michael Mathew MD Back pain Discharge Disposition: Home or Self Care 08/16/2024 Telephone [facility] [address] [place] [address] Veronika Yusuf RN Anticoagulation 08/14/2024 6:00 PM CDT - 08/16/2024 1:22 PM CDT Hospital Encounter [facility] [address] [place] [address] Aki Booth, DO Baig, Nba Gutierrez MD Ovenkavon, MD Margot Novoa, MD Trini Closed compression fracture of body of L1 vertebra (CMS/HCC) Discharge Disposition: Home or Self Care from [...] PNEUM OCOCCAL CONJUGATE VACCINE 20-VALENT (PCV20), POLYSACCHARIDE [id number] CONJUGATE, ADJUVANT 0.5 ML (PF) IM 06/05/2023,12/02/2022,12/25/2021 [...] do you attend [facility] or [facility] services? 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 [address] [place] [address] Tresa Stockton, RALEIGH [address] [place] [address] 04/19/2025 10:30 AM WELDER FITTER APPRENTICE Office Visit [facility] Endocrinology [facility] [address] [place] [address] James Lee MD [address] [place], [place] [address] Gricel Mcgovern, ANDERS [address] [place] [address] Health Maintenance Due Date Last [...] exists DIABETES MICROALBUMIN ANNUAL SCREEN 02/27/2024 02/26/2023 INFLUENZA [...] Care Plan Heart Failure Problem No Silvio LatonyaMARGOT [employer] Implanted Type Area Tunnel Elastic Operator Lockstitch Device Identifier Shelf Expiration Date Model / Serial / Lot Dev Closure Angioseal 6fr Vip [id number] - [id number] Implanted:Qty: 1 on 03/21/2024 by Kyler Helm MD at [facility] Closure Device Right: Groin TER[employer] SYS [id number] 10/25/2024 [id number] / / [id number] 93 Imp Toe Phalinx 10 Solid Angl Sml [id number] - [id number] Implanted:Qty: 1 on 07/20/2024 by Tereso Gil DPM at [facility] Toe Left: Foot [employer] 12/29/2031 [id number] / / [id number] Procedures Procedure Name Priority Date/Time Associated Diagnosis Comments BLOOD GAS VENOUS Stat 11/11/2024 11:16 PM CDT INFLUENZA A/B, RSV AND COVID-19 PCR PANEL Stat 11/11/2024 9:55 PM CDT INFLUENZA A/B, RSV AND COVID-19 PCR PANEL Stat 11/11/2024 9:55 PM CDT COMPREHENSIVE METABOLIC PANEL Stat 11/11/2024 9:47 PM CDT CBC WITH DIFFERENTIAL Stat 11/11/2024 9:47 PM CDT XR FEMUR [...] EKG 12-LEAD Stat 11/11/2024 7:48 PM CDT TELEMETRY REPORT 11/11/2024 2:10 AM CDT POC GLUCOSE Routine 11/10/2024 11:59 AM CDT COMPREHENSIVE METABOLIC PANEL Routine 11/10/2024 9:33 AM CDT CBC WITH DIFFERENTIAL Routine 11/10/2024 9:33 AM CDT POC GLUCOSE Routine 11/10/2024 7:09 AM CDT POC GLUCOSE Routine 11/09/2024 8:56 PM CDT POC GLUCOSE Routine 11/09/2024 5:12 PM CDT TELEMETRY REPORT 11/09/2024 3:07 PM CDT POC GLUCOSE Routine 11/09/2024 11:01 AM CDT POC GLUCOSE Routine 11/09/2024 7:21 AM CDT COMPREHENSIVE METABOLIC PANEL Routine 11/09/2024 1:25 AM CDT CBC WITH DIFFERENTIAL Routine 11/09/2024 1:25 AM CDT POC GLUCOSE [...] CDT PROTIME-INR Stat 11/08/2024 4:21 AM CDT BRAIN NATRIURETIC PEPTIDE, BNP OR PROBNP Stat 11/08/2024 4:20 AM CDT COMPREHENSIVE METABOLIC PANEL Stat 11/08/2024 4:20 AM CDT CBC WITH DIFFERENTIAL Stat 11/08/2024 4:20 AM CDT XR CHEST PA OR AP 1 VW Stat 4:15 AM CDT TELEMETRY REPORT 11/08/2024 3:01 AM CDT [...] 2 HR, 5TH GEN Timed Study 5 11:40 PM CDT BLOOD GAS VENOUS Stat [...] CDT LIPID PANEL Routine 02/19/2024 5:29 AM 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 FITTER APPRENTICE MICROALBUMIN/CREATININ E RATIO, RANDOM UR Routine 02/26/2023 3:01 PM WELDER FITTER APPRENTICE Type 2 diabetes mellitus without complication, without long-term current use of insulin ([facility]) Wellness examination CERV/VAG CYTO SCREEN PAP W/HPV Routine 01/06/2023 12:00 AM CDT Wellness examination MAMMO DIAGNOSTIC UNI RIGHT W OR WO CAD Routine 01/24/2011 10:03 AM CDT Lump or mass in breast from Last 3 Months or Most Recently Relevant to Health Maintenance Results * (ABNORMAL) BLOOD GAS VENOUS (11/11/2024 11:16 PM CDT) Only the most recent of8 resultswithin the time period is included. PH BLOOD POC 7.43 7.32 - 7.43 11/11/2024 11:16 PM CDT [facility] PCO2 POC 51(H) 38 - 50 mm Hg 11/11/2024 11:16 PM CDT [facility] PO2 POC 47(H) 25 - 40 mm Hg 11/11/2024 11:16 PM CDT [facility] HCO3 (CALC) POC 34(H) 22 - 29 mmol/L 11/11/2024 11:16 PM [facility] HEMOGLOBIN POC 11.4(L) 12.0 - 18.0 g/dL 11/11/2024 11:16 PM [facility] BASE EXCESS POC 10(H) -2 - 3 mmol/L 11/11/2024 11:16 PM [facility] O2 SATURATION POC 76(H) 40 - 70 % 11/11/2024 11:16 PM [facility] SODIUM POC 137 135 - 145 mmol/L 11/11/2024 11:16 PM [facility] POTASSIUM POC 4.2 3.5 - 4.9 mmol/L 11/11/2024 11:16 PM [facility] HEMATOCRIT POC 34(L) 38 - 51 % 11/11/2024 11:16 PM [facility] PH TEMP CORRECT 7.43 7.32 - 7.43 11/11/2024 11:16 PM [facility] PCO2 TEMP CORRECT 51(H) 38 - 50 mm Hg 11/11/2024 11:16 PM [facility] PO2 TEMP CORRECT 47(H) 25 - 40 mm Hg 11/11/2024 11:16 PM [facility] SPECIMEN SOURCE, GASES POC Venous 11/11/2024 11:16 PM [facility] CALCIUM IONIZED POC 5.4(H) 4.8 - 5.2 mg/dL 11/11/2024 11:16 PM [facility] TCO2 (CALC) POC 36(H) 22 - 26 mmol/L 11/11/2024 11:16 PM [facility] SITE POC No Charge 11/11/2024 11:16 PM [facility] Blood, venous 11/11/2024 11: 16 PM CDT 11/11/2024 11:17 PM CDT Aki Booth DO ABG ORDERABLES Final R esult Performing Organization Address City/[facility]/ZIP Co de Phone Number [facility] CLIA # [id number] [address] [place] [address] * INFLUENZA A/B, RSV AND COVID-19 PCR PANEL (11/11/2024 9:55 PM CDT) Only the most recent of5 resultswithin the time period is included. [facility] COVID-19 PCR NOT DETECTED Not Detected 11/12/19 11:06 PM CDT [facility] Influenza A by PCR NOT DETECTED Not Detected 11/11/2024 11:06 PM CDT [facility] Influenza B by PCR NOT DETECTED Not Detected 11/11/2024 11:06 PM CDT [facility] RSV by PCR NOT DETECTED Not Detected 11/11/2024 11:06 PM CDT [facility] Upper Respiratory ENTIRE NASOPHARYNX / Unknown Collection / Unknown 11/11/2024 9:55 PM CDT 11/11/2024 10:10 PM CDT Narrative [facility] - 11/11/2024 11:06 PM CDT This [...] ORDERABLES Final Result Performing Organization Address City/[facility]/ZIP [facility] de [id number] [address] [address] * (ABNORMAL) CBC WITH DIFFERENTIAL (11/11/2024 9:47 PM CDT) Only the most recent of35 resultswithin the time period is included. [facility] WBC 9.0 4.8 - 10.8 K/uL 11/11/2024 10:07 PM [facility] NRBCS 3(H) <1 % 11/11/2024 10:07 PM [facility] RBC 3.74(L) 4.20 - 5.40 M/uL 11/11/2024 10:07 PM [facility] HEMOGLOBIN 11.1(L) 12.0 - 16.0 g/dL 11/11/2024 10:07 PM [facility] HEMATOCRIT 35.8(L) 36.0 - 46.0 % 11/11/2024 10:07 PM [facility] MCV 95.7 84.0 - 103.0 fL 11/11/2024 10:07 PM [facility] MCH 29.7 27.0 - 34.0 pg 11/11/2024 10:07 PM [facility] MCHC 31.0 30.0 - 35.0 g/dL 11/11/2024 10:07 PM [facility] PLATELETS 203 140 - 440 K/uL 11/11/2024 10:07 PM [facility] MPV 10.8 8.9 - 12.8 fL 11/11/2024 10:07 PM [facility] RDW 18.9(H) 11.0 - 14.5 % 11/11/2024 10:07 PM [facility] RDW-STDEV 66.3(H) 37.0 - 54.0 fL 11/11/2024 10:07 PM [facility] NEUTROPHILS 60 42 - 75 % 11/11/2024 10:07 PM [facility] LYMPHOCYTES 26 24 - 44 % 11/11/2024 10:07 PM [facility] MONOCYTES 11(H) 2 - 10 % 11/11/2024 10:07 PM [facility] EOSINOPHILS 0 0 - 7 % 11/11/2024 10:07 PM [facility] BASOPHILS 0 0 - 1 % 11/11/2024 10:07 PM CDT [facility] IMMATURE GRANULOCYTES 3(H) 0 - 2 % 11/11/2024 10:07 PM CDT [facility] NEUTROPHIL ABSOLUTE 5.45 2.00 - 8.00 K/uL 11/11/2024 10:07 PM CDT [facility] LYMPHOCYTE ABSOLUTE 2.30 1.20 - 4.00 K/uL 11/11/2024 10:07 PM CDT [facility] MONOCYTE ABSOLUTE 0.98(H) 0.10 - 0.60 K/uL 11/11/2024 10:07 PM CDT [facility] EOSINOPHIL ABSOLUTE 0.03 0.00 - 0.70 K/uL 11/11/2024 10:07 PM CDT [facility] BASOPHILS ABSOLUTE 0.02 0.00 - 0.20 K/uL 11/11/2024 10:07 PM CDT [facility] IMMATURE GRANULOCYTES ABSOLUTE 0.24(H) 0.00 - 0.10 K/uL 11/11/2024 10:07 PM CDT [facility] SMEAR REVIEWED: NA - Not Applicable 11/11/2024 10:07 PM [facility] [facility] Blood Venipuncture / Unknown 11/11/2024 9:47 PM CDT 11/11/2024 9:58 PM CDT Rico Bray NP HEMATOLOGY ORDERABLES Final Re sult [facility] CLIA # [id number] [facility] [address] [place] [address] * (ABNORMAL) COMPREHENSIVE METABOLIC PANEL (11/11/2024 9:47 PM CDT) Only the most recent of26 resultswithin the time period is included. SODIUM 140 136 - 145 mmol/L 11/11/2024 10:34 PM CDT [facility] POTASSIUM 3.6 3.5 - 5.1 mmol/L 11/11/2024 10:34 PM [facility] CHLORIDE 101 98 - 107 mmol/L 11/11/2024 10:34 PM [facility] CO2 25 22 - 29 mmol/L 11/11/2024 10:34 PM [facility] CALCIUM 9.4 8.6 - 10.0 mg/dL 11/11/2024 10:34 PM [facility] BUN 32(H) 6 - 20 mg/dL 11/11/2024 10:34 PM [facility] CREATININE 0.69 0.51 - 0.95 mg/dL 11/11/2024 10:34 PM [facility] GLUCOSE 296(H) 74 - 99 mg/dL 11/11/2024 10:34 PM [facility] TOTAL PROTEIN 6.1(L) 6.4 - 8.3 g/dL 11/11/2024 10:34 PM [facility] ALBUMIN 3.5 3.5 - 5.2 g/dL 11/11/2024 10:34 PM [facility] BILIRUBIN TOTAL 0.3 0.0 - 1.0 mg/dL 11/11/2024 10:34 PM [facility] ALKALINE PHOSPHATASE 115(H) 35 - 104 U/L 11/11/2024 10:34 PM [facility] AST 25 10 - 35 U/L 11/11/2024 10:34 PM [facility] ALT 40(H) <=35 U/L 11/11/2024 10:34 PM [facility] GFR >60 >=60 mL/min/1.7 3 sq meter 11/11/2024 10:34 PM [facility] Comment:eGFR calculated with 2020 CKD-EPI equation. Vegetarian diet, extremely high or low muscle mass, and may affect results. Cystatin C with Glomerular Filtration Rate is a suitable alternative for these patients. ANION GAP 14 9 - 20 mmol/L 11/11/2024 10:34 PM CDT [facility] Blood Venipuncture / Unknown 11/11/2024 9:47 PM CDT 11/11/2024 9:59 PM CDT Rico Bray NP CHEMISTRY ORDERABLES Final Res ult [facility] CLIA # [id number] [address] [place] [address] * XR FEMUR 2 VW BILAT (11/11/2024 [...] dislocation. Aki Booth DO DIAGNOSTIC IMAGING ORDE NARCISO [...] bodies. Procedure Note Eduardo Cadena MD - 08/23/2025 EXAM: XR TIBIA AND FIBULA 2 VW [...] AP 1 VW (11/11/2024 8:26 PM CDT) Only the most recent of20 resultswithin the time period is included. Anatomical [...] * EKG 12-LEAD (11/11/2024 7:48 PM CDT) Only the most recent of20 resultswithin the time period is included. 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 : 1965 Requested By: Order Number: [id number] Reading MD: Echo Tapia Measurements Intervals Pray Rate: 96 P: 30 AZ: 158 QRS: 33 QRSD: 76 T: 25 QT: 404 QTc: 510 Interpretive Statements Sinus rhythm with premature atrial complexes Possible Inferior infarct, age undetermined Prolonged QT Abnormal ECG Electronically Signed On 11-12-2024 8:50:40 CDT by Echo Tapia Procedure Note Provider, Historical - 11/12/[address] [address] Test Date: 2024-11-11 Pat Name: LE DIAZ Department: 11 Room: Gender: Female 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 us Provider Scanning ECG ORDERABLES Final Result * (ABNORMAL) POC GLUCOSE (11/10/2024 11:59 AM CDT) Only the most recent of122 resultswithin the time period is included. GLUCOSE POC 170(H) 74 - 99 mg/dL 11/10/2024 11:59 AM CDT [facility] [employer] [facility] SPECIMEN SOURCE, GLUCOSE POC Capillary 11/10/2024 11:59 AM CDT [facility] Blood, whole 11/10/2024 11:5 9 AM CDT 11/10/2024 12:08 PM CDT Yaya Garcia MD POINT OF CARE TESTING Jana l Result Performing Organization Address [facility] de Phone Number [facility] CLIA # [id number] [address] [place] [address] * XR LUMBAR SPINE 2 OR 3 VW (11/08/2024 8:30 PM CDT) Anatomical Region Laterality Modality Spine Computed Radiogr aphy 11/08/2024 8:30 PM CDT Impressions 11/09/2024 10:52 AM CDT IMPRESSION: Please see below. Exam: XR LUMBAR SPINE 2 OR 3 VW Date/Time of Exam: 11/08/2024 8:30 PM Reason For Exam: Fall. Diagnosis: COPD with exacerbation ([facility]). Comparison: September 13, 2024 FINDINGS: Frontal lateral [...] For Exam: Fall. Diagnosis: COPD with exacerbation ([facility]). Comparison: September 13, 2024 FINDINGS: Frontal lateral and lumbosacral projections show mild left convex scoliosis. Slight degenerative anterolisthesis L4-5. Mild to moderate lumbar disc degeneration, greatest distally. Minor ventral spondylosis. Mild to moderate distal facet arthropathy. Stable mild grade L1 superior endplate compression fracture. Ronak Cortes MD DIAGNOSTIC IMAGING ORDERABLES Final Result * RESPIRATORY PATHOGEN PCR PANEL (11/08/2024 4:36 AM CDT) Only the most recent of5 resultswithin the time period is included. Pathologist [facility] Respiratory Pathogen PCR Panel NOT DETECTED No respiratory pathogen nucleic acids detected. 11/08/2024 5:41 AM CDT [facility] [employer] [facility] COVID-19 PCR NOT DETECTED Not Detected 11/08/2024 5:41 AM CDT [facility] [employer] [facility] Upper Respiratory ENTIRE NASOPHARYNX / Unknown Collection / Unknown 11/08/2024 4:36 AM CDT 11/08/2024 4:42 AM CDT [facility] [employer] [facility] - 11/08/2024 5:41 AM CDT The [...] MICROBIOLOGY - GENERAL ORDER JANAY Final Result [facility] CLIA # [id number] [address] [place] [address] * (ABNORMAL) BLOOD GAS ARTERIAL (11/08/2024 4:34 AM CDT) Only the most recent of5 resultswithin the time period is included. PH BLOOD POC 7.46(H) 7.35 - 7.45 11/08/2024 4:34 AM [facility] PCO2 POC 45 35 - 45 mm Hg 11/08/2024 4:34 AM [facility] PO2 POC 83 80 - 105 mm Hg 11/08/2024 4:34 AM [facility] HCO3 (CALC) POC 32(H) 22 - 26 mmol/L 11/08/2024 4:34 AM [facility] HEMOGLOBIN POC 11.4(L) 12.0 - 18.0 g/dL 11/08/2024 4:34 AM [facility] BASE EXCESS POC 8(H) -2 - 3 mmol/L 11/08/2024 4:34 AM [facility] O2 SATURATION POC 97 95 - 98 % 11/08/2024 4:34 AM [facility] SODIUM POC 138 138 - 146 mmol/L 11/08/2024 4:34 AM [facility] POTASSIUM POC 3.7 3.5 - 4.9 mmol/L 11/08/2024 4:34 AM T [facility] HEMATOCRIT POC 34(L) 38 - 51 % 11/08/2024 4:34 AM [facility] PH TEMP CORRECT 7.46(H) 7.35 - 7.45 11/08/2024 4:34 AM [facility] PCO2 TEMP CORRECT 45 35 - 45 mm Hg 11/08/2024 4:34 AM [facility] PO2 TEMP CORRECT 83 80 - 105 mm Hg 11/08/2024 4:34 AM [facility] SPECIMEN SOURCE, GASES POC Arterial 11/08/2024 4:34 AM CDT [facility] CALCIUM IONIZED POC 5.0 4.8 - 5.2 mg/dL 11/08/2024 4:34 AM CDT [facility] TCO2 (CALC) POC 33(H) 23 - 27 mmol/L 11/08/2024 4:34 AM CDT [facility] PUNC SITE POC ART PUNCT 11/08/2024 4:34 AM CDT [facility] Blood, arterial 11/08/2024 4 :34 AM CDT 11/08/2024 4:35 AM CDT us Jonny Bowers MD ABG ORDERABLES Final Result [facility] # [id number] [address] [place] [address] * (ABNORMAL) PROTIME-INR (11/08/2024 4:21 AM CDT) Only the most recent of27 resultswithin the time period is included. PROTIME 26.0(H) 12.7 - 14.9 Seconds 11/08/2024 4:49 AM CDT [facility] INR 2.3(H) 0.8 - 1.2 11/08/2024 4:49 AM CDT [facility] Blood Venipuncture / Unknown 11/08/2024 4:21 AM CDT 11/08/2024 4:30 AM CDT Narrative [facility] - 11/08/2024 4:49 AM CDT Expected Values for INR: DVT/PE Goal INR 2.5; range 2.0 - 3.0 Valve Replacement Tissue Goal INR 2.5; range 2.0 - 3.0 Valve Replacement Mechanical Goal INR 3.0; range 2.5 - 3.5 POST-WY Goal INR 2.5; range 2.0 - 3.0 or Goal INR 3.0; range 2.5 - 3.5 Atrial Fibrillation Goal INR 2.5; range 2.0 - 3.0 Ischemic Stroke Goal INR 2.5; range 2.0 - 3.0 Jonny Bowers MD HEMATOLOGY ORDERABLES Final Result Performing Organization Address [facility] de Phone Number [facility] [employer] [facility] CLIA # [id number] [address] [id number] * (ABNORMAL) BRAIN NATRIURETIC PEPTIDE, BNP OR PROBNP (11/08/2024 4:20 AM CDT) Only the most recent of13 resultswithin the time period is included. Pathologist [facility] PROBNP, N TERMINAL 360(H) 0 - 125 pg/mL 11/08/2024 5:06 AM CDT [facility] [employer] [facility] Comment: INTERPRETIVE COMMENT based on diagnosis: [...] ORDERABLES Final R esult Performing Organization Address [facility] Co de Phone Number [facility] [employer] [facility] CLIA # [id number] [address] [address] * (ABNORMAL) CBC WITHOUT DIFFERENTIAL (11/07/2024 4:10 AM CDT) Only the most recent of7 resultswithin the time period is included. WBC 10.2 4.8 - 10.8 K/uL 11/07/2024 4:41 AM [facility] NRBCS 1(H) <1 % 11/07/2024 4:41 AM [facility] RBC 3.51(L) 4.20 - 5.40 M/uL 11/07/2024 4:41 AM [facility] HEMOGLOBIN 10.4(L) 12.0 - 16.0 g/dL 11/07/2024 4:41 AM [facility] HEMATOCRIT 33.8(L) 36.0 - 46.0 % 11/07/2024 4:41 AM [facility] MCV 96.3 84.0 - 103.0 fL 11/07/2024 4:41 AM [facility] MCH 29.6 27.0 - 34.0 pg 11/07/2024 4:41 AM [facility] MCHC 30.8 30.0 - 35.0 g/dL 11/07/2024 4:41 AM [facility] PLATELETS 188 140 - 440 K/uL 11/07/2024 4:41 AM [facility] MPV 10.8 8.9 - 12.8 fL 11/07/2024 4:41 AM [facility] RDW 18.5(H) 11.0 - 14.5 % 11/07/2024 4:41 AM [facility] RDW-STDEV 64.7(H) 37.0 - 54.0 fL 11/07/2024 4:41 AM [facility] Blood Venipuncture / Unknown 11/07/2024 4:10 AM CDT 11/07/2024 4:30 AM CDT us Nba Baig MD HEMATOLOGY ORDERABLES F inal Result [facility] CLIA # [id number] [facility] [address] [place] [address] * (ABNORMAL) BASIC METABOLIC PANEL (11/06/2024 4:13 AM CDT) Only the most recent of16 resultswithin the time period is included. SODIUM 137 136 - 145 mmol/L 11/06/2024 5:41 AM T [facility] POTASSIUM 4.8 3.5 - 5.1 mmol/L 11/06/2024 5:41 AM T [facility] CHLORIDE 103 98 - 107 mmol/L 11/06/2024 5:41 AM T [facility] CO2 22 22 - 29 mmol/L 11/06/2024 5:41 AM T [facility] CALCIUM 9.0 8.6 - 10.0 mg/dL 11/06/2024 5:41 AM T [facility] BUN 18 6 - 20 mg/dL 11/06/2024 5:41 AM T [facility] CREATININE 0.47(L) 0.51 - 0.95 mg/dL 11/06/2024 5:41 AM [facility] GLUCOSE 371(H) 74 - 99 mg/dL 11/06/2024 5:41 AM [facility] GFR >60 >=60 mL/min/1. 73 sq meter 11/06/2024 5:41 AM [facility] Comment:eGFR calculated with 2020 CKD-EPI equation. Vegetarian diet, extremely high or low muscle mass, and may affect results. Cystatin C with Glomerular Filtration Rate is a suitable alternative for these patients. ANION GAP 12 9 - 20 mmol/L 11/06/2024 5:41 AM [facility] Blood Venipuncture / Unknown 11/06/2024 4:13 AM CDT 11/06/2024 5:10 AM CDT Nba Baig MD CHEMISTRY ORDERABLES Fi nal Result [id number] [address] [address] * Critical Care (11/05/2024 4:16 PM CDT) [...] INTERFACE SYSTEM - 11/02/2024 6:23 PM CDT [facility] Echocardiography Laboratory [address] [place] [address] Transthoracic Echocardiography Patient: Le Diaz Study ID: ECHO COMPLETE - Gender: F : 1965 Age: 59 Room: [facility] Study Date: 11/02/2024 Pt Status: Inpatient Study Time: 08:52:[address] [facility] #: [id number] Ordering:Danyell Dewitt Journeyman Glazier: [facility] Indications and History: Syncope. Risk factors: Hypertension. [...] [facility] are accredited with the Intersge[facility] hospitaletal Accreditation Commission - Echocardiography. Prepared and Electronically Authenticated Howie Sweeney MD Confirmed 11/02/2024 18:22 Procedure Note Howie Sweeney MD - 11/02/2024 [facility] Echocardiography Laboratory [address] [place] [address] Transthoracic Echocardiography Patient: Le Diaz Study ID: ECHOCOMPLETE - Gender: Kingsley : 1965 Age: 59 Room: [facility] Study Date: 11/02/2024 Pt Status: Inpatient Study Time: 08:52:[address] [facility] #: [id number] Ordering:Danyell Dewitt Journeyman Glazier: [facility] Indications and History: Syncope. Risk factors: Hypertension.Diabetes [...] [facility] are accredited with theBannersocietal Accreditation Commission - Echocardiography. Prepared and Electronically Authenticated Howie Sweeney MD Confirmed 11/02/2024 18:22 Danyell Dewitt MD US ORDERABLES Final Resul t Performing Organization Address City/[facility] de Phone Number INTERFACE SYSTEM Refer to clinic/hospital department * (ABNORMAL) LACTIC ACID (11/02/2024 4:33 AM CDT) Only the most recent of13 resultswithin the time period is included. LACTIC ACID 2.2(H) <=2.0 mmol/L 11/02/2024 5:12 AM CDT [facility]ORAT[facility] Blood Venipuncture / Unknown 11/02/2024 4:33 AM CDT 11/02/2024 4:43 AM CDT Tiffanie VALENTINEP CHEMISTRY ORDERABLES Fi nal Result Performing Organization Address [facility]/ZIP Co de Phone Number [facility] CLIA # [id number] [address] [address] * (ABNORMAL) OSMOLALITY (11/01/2024 9:10 PM CDT) OSMOLALITY 324(H) 275 - 295 mOsm/kg 11/01/2024 10:03 PM CDT [facility] Blood Venipuncture / Unknown 11/01/2024 9:10 PM CDT 11/01/2024 9:30 PM CDT us Li Anderson MD CHEMISTRY ORDERABLES Jana flores Result Performing Organization Address [facility] de Phone Number [facility] CLIA # [id number] [address] [place] [address] * US CAROTID DOPPLER (11/01/2024 8:04 AM CDT) Anatomical Region Laterality Modality Neck Ultrasound 11/01/2024 7:32 AM CDT Narrative 11/01/2024 9:00 AM CDT [facility] Noninvasive Vascular Laboratory [address] [place] [address] Noninvasive Vascular Lab Cerebrovascular Exam Carotid Duplex Patient: Le Diaz Study ID: US CAROTID DOPPL Gender: F : 1965 Age: 59 Room: [facility] Height: 162.6cm Weight: 97kg BSA: 2.14m^2 Pt status: Inpatient Study Date: 11/01/2024 Study Time: 07:32:50 AM BSA: 2.14m^2 Ordering: Danyell Dewitt Interpreting:Lm Zimmerman Journeyman Glazier: Jerson Nuñez Indications: Syncope. Summary Mild plaque [...] !Proximal ICA/prox CCA!0.68 !0.53 ! + +-----+-----+ [facility] is accredited with the Intersocietal Commission for the Accreditation of Vascular Laboratories (ICAVL) Prepared and Electronically Authenticated Lm Zimmerman Confirmed 11/01/2024 09:00 Procedure Note Lm Zimmerman MD - 11/01/2024 [facility] Noninvasive Vascular Laboratory Formerly [facility] [place] [address] Noninvasive Vascular Lab Cerebrovascular Exam Carotid Duplex Patient: Le Diaz Study ID: US CAROTID DOPPL Gender: F : 1965 Age: 59 Room: [facility] Height: 162.6cm Weight: 97kg BSA: 2.14m^2 Pt status: Inpatient Study Date: 11/01/2024 Study Time: 07:32:50 AM BSA: 2.14m^2 Ordering: Danyell Dewitt Interpreting:Lm Zimmerman Journeyman Glazier: Jerson Nuñez Indications: Syncope. Summary Mild plaque [...] !Proximal ICA/prox CCA!0.68 !0.53 ! + +-----+-----+ [facility] Vascular Lab is accredited with theIntersocietal Commission for the Accreditation of Vascular Laboratories (ICAVL) Prepared and Electronically Authenticated Lm Zimmerman Confirmed 11/01/2024 09:00 Danyell Dewitt MD US ORDERABLES Final Resul t * (ABNORMAL) TROPONIN 6 HR, 5TH GEN (10/31/2024 1:53 PM CDT) Only the most recent of7 resultswithin the time period is included. TROPONIN T, 6 HR 5TH GEN 24(H) <11 ng/L 10/31/2024 2:49 PM CDT [facility] DELTA 6HR TROPONIN T 0 See Interp. 10/31/2024 2:49 PM CDT [facility] Blood Venipuncture / Unknown 10/31/2024 1:53 PM CDT 10/31/2024 2:03 PM CDT Narrative [facility] - 10/31/2024 2:49 PM CDT Troponin elevated. Delta indeterminate. Delay in collection of timed specimen beyond recommended collection interval. Results must be interpreted in clinical context. Aggie Rivas DO CHEMISTRY ORDERABLES Final Resul t [facility] CLIA # [id number] [address] [place] [address] * BLOOD CULTURE (10/31/2024 1:24 PM CDT) Only the most recent of5 resultswithin the time period is included. BLOOD CULTURE No growth 11/05/2024 2:29 PM CDT [facility] Blood (Peripheral) Venipuncture / Unknown 10/31/2024 1:24 PM CDT 10/31/2024 1:29 PM CDT Aggie Rivas DO MICROBIOLOGY - GENERAL ORDERABLE S Final Result [facility] CLIA # [id number] [address] [facility] [place] [address] * CTA CHEST W AND/OR WO CONTRAST [...] acute intracranial findings. Narrative Procedure Note Carlos Garcia DO - 10/31/2024 IMPRESSION: Please see below. [...] 26(H) <=10 ng/L 10/31/2024 8:47 AM CDT [facility] [employer] [facility] DELTA 2HR TROPONIN T 2 See Interp. 10/31/2024 8:47 AM CDT [facility] [employer] [facility] Blood Venipuncture / Unknown 10/31/2024 8:07 AM CDT 10/31/2024 8:14 AM CDT Narrative [facility] [employer] [facility] - 10/31/2024 8:47 AM CDT Troponin elevated. Delta not changing. Aggie Rivas DO CHEMISTRY ORDERABLES Final Resul t Performing Organization Address City/[facility] Co de Phone Number [facility] CLIA # [id number] [address] [place] [address] * MAGNESIUM LEVEL (10/31/2024 8:07 AM CDT) Only the most recent of6 resultswithin the time period is included. MAGNESIUM 2.0 1.6 - 2.6 mg/dL 10/31/2024 10:58 AM CDT [facility] [employer] [facility] Blood Venipuncture / Unknown 10/31/2024 8:07 AM CDT 10/31/2024 8:14 AM CDT Danyell Dewitt MD CHEMISTRY ORDERABLES Final Result Performing Organization Address City/State/[facility] Co de Phone Number [facility] CLIA # [id number] [address] [place] [address] * (ABNORMAL) HEMOGLOBIN A1C (10/31/2024 3:08 AM CDT) HEMOGLOBIN A1C 10.4(H) <=5.6 % 11/02/2024 10:13 AM CDT [facility] EST. AVG GLUCOSE, A1C 252 mg/dL 11/02/2024 10:13 AM CDT [facility] Blood Venipuncture / Unknown 10/31/2024 3:08 AM CDT 10/31/2024 3:13 AM CDT Narrative [facility] - 11/02/2024 10:13 AM CDT HGB A1C INTERPRETATION NORMAL: <5.7% PRE-DIABETES: 5.7 - 6.4% DIABETES: 6.5% OR GREATER Danyell Dewitt MD CHEMISTRY ORDERABLES Final Result Performing Organization Address [facility] Co de Phone Number [facility] CLIA # [id number] [address] [place] [address] * (ABNORMAL) TROPONIN BASELINE, 5TH GEN (10/31/2024 1:11 AM CDT) Only the most recent of14 resultswithin the time period is included. TROPONIN T, BASELINE 5TH GEN 24(H) <=10 ng/L 10/31/2024 6:24 AM CDT [facility] Blood Venipuncture / Unknown 10/31/2024 1:11 AM CDT 10/31/2024 1:22 AM CDT Narrative [facility] [employer] [facility] - 10/31/2024 6:24 AM CDT Troponin elevated. Aggie Rivas DO CHEMISTRY ORDERABLES Final Resul t Performing Organization Address [facility] de Phone Number [facility] CLIA # [id number] [address] [facility] [place] [address] * LIPASE (10/31/2024 1:11 AM CDT) Only the most recent of3 resultswithin the time period is included. LIPASE 21 13 - 60 U/L 10/31/2024 6:26 AM CDT [facility] Blood Venipuncture / Unknown 10/31/2024 1:11 AM CDT 10/31/2024 1:22 AM CDT Aggie Rivas DO CHEMISTRY ORDERABLES Final Resul t Performing Organization Address [facility] de Phone Number [facility] CLIA # [id number] [address] [address] [place] [address] * EXTRA TUBE (URINE [place]) (10/29/2024 7:55 PM CDT) Only the most recent of2 resultswithin the time period is included. Urine URINE SPECIMEN OBTAINED BY CLEAN CATCH PROCEDURE / Unknown Collection / Unknown 10/29/2024 7:55 PM CDT 10/29/2024 8:11 PM CDT us Rico Bray PVC MONITOR URINE ORDERABLES Final Result Performing Organization Address [facility] de Phone Number [facility] CLIA # [id number] [address] [facility] [place] [address] * (ABNORMAL) URINALYSIS WITH REFLEX MICROSCOPIC (10/29/2024 7:55 PM CDT) Only the most recent of2 resultswithin the time period is included. COLOR UA Pale Yellow Pale to Dark Yellow 10/[facility]2024 [facility]A Clear Clear 10/29/2024 8:28 PM T [facility] SPECIFIC GRAVITY UA 1.029 1.003 - 1.035 10/29/2024 8:28 PM [facility] PH UA 6.0 5.0 - 8.0 10/29/2024 8:28 PM [facility] LEUKOCYTE ESTERASE UA Negative Negative 10/29/2024 8:28 PM [facility] NITRITE UA Positive(A) Negative 10/29/2024 8:28 PM [facility] PROTEIN UA Negative Negative 10/29/2024 8:28 PM [facility] GLUCOSE UA 4+(A) Negative 10/29/2024 8:28 PM [facility] KETONES UA Negative Negative 10/29/2024 8:28 PM [facility] UROBILINOGEN UA <2.0 <2.0 mg/dL 8:28 PM [facility] BILIRUBIN UA Negative Negative 10/29/2024 8:28 PM [facility] BLOOD UA Negative Negative 10/29/2024 8:28 PM [facility] WBC UA 3-5(A) 0 - 2 /hpf 10/29/2024 8:28 PM [facility] RBC UA 0-2 0 - 2 /hpf 10/29/2024 8:28 PM [facility] BACTERIA UA 1+(A) Negative /hpf 10/29/2024 8:28 PM [facility] Urine URINE SPECIMEN OBTAINED BY CLEAN CATCH PROCEDURE / Unknown Collection / Unknown 10/29/2024 7:55 PM CDT 10/29/2024 8:11 PM CDT Rico Bray NP URINE ORDERABLES Final Result [facility] CLIA # [id number] Formerly [facility] [address] [address] [place] [address] * US ABDOMEN LIMITED (10/28/2024 10:54 AM [...] sonographic Heath's sign was documented by the emergency department rn. Common bile duct: No dilation of the [...] sonographic Heath's sign was documented by the emergency department rn. Common bile duct: No dilation of the intrahepatic ducts. Common bile duct measures 3.6 mm. No right hydronephrosis or sonographically evident for renal calculi. Right kidney measures 12.5 cm length. Pancreas: Poorly visualized due to overlying bowel gas. IMPRESSION: 1. No acute sonographic abnormalities in the right upper quadrant. 2. Diffuse hepatic steatosis. Nani Borges MD ORDERABLES Final Re sult * (ABNORMAL) HEPATIC FUNCTION PANEL (10/28/2024 5:37 AM CDT) Pathologist [facility] Emergency Department TOTAL PROTEIN 7.2 6.4 - 8.3 g/dL 10/28/2024 10:03 AM CDT [facility] ALBUMIN 4.0 3.5 - 5.2 g/dL 10/28/2024 10:03 AM CDT [facility] BILIRUBIN TOTAL 0.3 0.0 - 1.0 mg/dL 10/28/2024 10:03 AM CDT [facility] BILIRUBIN DIRECT 0.1 0.0 - 0.3 mg/dL 10/28/2024 10:03 AM T [facility] Comment:Hemolyzed: Result ma y be falsely decreased. ALKALINE PHOSPHATASE 131(H) 35 - 104 U/L 10/28/2024 10:03 AM CDT [facility] AST 15 10 - 35 U/L 10/28/2024 10:03 AM T [facility] ALT 24 <=35 U/L 10/28/2024 10:03 AM CDT [facility] Blood Venipuncture / Unknown 10/28/2024 5:37 AM CDT 10/28/2024 5:46 AM CDT Nani Borges MD CHEMISTRY ORDERABLES Fin al Result [facility] # [id number] [address] [place] [address] * (ABNORMAL) PTT (10/26/2024 4:54 PM CDT) Only the most recent of3 resultswithin the time period is included. Pathologist [facility] Emergency Department PTT 17.2(L) 24.8 - 37.2 seconds 10/26/2024 5:39 PM CDT [facility] Blood Venipuncture / Unknown 10/26/2024 4:54 PM CDT 10/26/2024 5:08 PM CDT Narrative [facility] - 10/26/2024 5:39 PM CDT Therapeutic Range: Hi-level PE/DVT heparin protocol 80.1 - 95.0 sec Lo-level PE/DVT heparin protocol 70.1 - 85.0 sec Cardiac Heparin Protocol 70.1 - 100.0 sec us Noor Adi GIPSON HEMATOLOGY ORDERABLES Final Resu lt [facility] CLIA # [id number] [address] [place] [address] * CT ABDOMEN PELVIS W CONTRAST (10/20/2024 [...] PCR PANEL (10/11/2024 12:03 PM CDT) Pathologist [facility] Emergency Department GI Pathogen PCR panel NOT DETECTED No nucleic acids detected. 10/11/2024 1:26 PM CDT [facility] Stool STOOL SPECIMEN / Unknown Collection / Unknown 10/11/2024 12:03 PM CDT 10/11/2024 12:05 PM CDT Narrative [facility] - 10/11/2024 1:26 PM CDT The [...] DO MICROBIOLOGY - GENERAL ORDERABLES Final Result [facility] CLIA # [id number] [address] [place] [address] * OCCULT BLOOD GUAIAC DIAGNOSTIC (10/11/2024 12:02 PM CDT) OCCULT BLOOD, STOOL Negative Negative 10/11/2024 12:11 PM CDT [facility] Stool STOOL SPECIMEN / Unknown Collection / Unknown 10/11/2024 12:02 PM CDT 10/11/2024 12:03 PM CDT Kapil Deluna DO BODY FLUIDS AND STOOLS Final Result [facility] CLIA # [id number] [facility] [address] * XR ABDOMEN 1 VW (10/10/2024 8:40 [...] average. Kapil Deluna DO DIAGNOSTIC IMAGING ORDE RABLES Final Result * D-DIMER (10/10/2024 5:07 AM CDT) Only the most recent of4 resultswithin the time period is included. D-DIMER QUANT 0.34 0.00 - 0.50 ug/mL FEU 10/10/2024 5:26 AM CDT [facility] Blood Venipuncture / Unknown 10/10/2024 5:07 AM CDT 10/10/2024 5:12 AM CDT [facility] - 10/10/2024 5:26 AM CDT [...] López MD HEMATOLOGY ORDERABLES Final Re sult [facility] CLIA # [id number] [address] [place] [address] [place] [address] * MANUAL DIFFERENTIAL (10/08/2024 5:38 PM CDT) Only the most recent of3 resultswithin the time period is included. Pathologist [facility] Emergency Department PLATELET EST. Adequate 10/08/2024 6:23 PM CDT [...] COM Fi nal Result Performing Organization Address [facility] Co de Phone Number [facility] CLIA # [id number] [address] [place], [place] [address] * UNFRACTIONATED HEPARIN MONITORING (10/03/2024 9:29 AM CDT) Only the most recent of7 resultswithin the time period is included. ANTI-XA UNFRAC HEP 0.58 See Interpretation IU/mL 10/03/2024 10:39 AM CDT [facility] Blood Venipuncture / Unknown 10/03/2024 9:29 AM CDT 10/03/2024 10:20 AM CDT Narrative [facility] - 10/03/2024 10:39 AM CDT Therapeutic Range: PT/DVT Heparin Protocol 0.3 - 0.7 IU/ml Cardiac Heparin Protocol 0.3 - 0.6 IU/ml The reference range for this test is specific to the anticoagulant and is not appropriate for monitoring patients on a DOAC protocol. Sasha Juan MD HEMATOLOGY O RDERABLES Final Result Performing Organization Address City/[facility]/ZIP Co de Phone Number [facility] CLIA # [id number] [address] [place] [address] * PET HEART PERF R&S W CT [...] ORDERABLES Final Resu lt Performing Organization Address City/[facility] Co de Phone Number INTERFACE SYSTEM Refer to clinic/hospital department * (ABNORMAL) TROPONIN (10/02/2024 8:18 AM CDT) TROPONIN T, 5TH GEN 28(H) <=10 ng/L 10/02/2024 9:06 AM CDT [facility] Blood Venipuncture / Unknown 10/02/2024 8:18 AM CDT 10/02/2024 8:30 AM CDT Narrative [facility] - 10/02/2024 9:06 AM CDT Troponin elevated. Daen Hopkins MD CHEMISTRY ORDERABLES Final Result Performing Organization Address [facility] de Phone Number [facility] CLIA # [id number] [address] [address] * XR THORACOLUMBAR SPINE 2 VW (09/13/2024 [...] 3.2(H) <=2.0 mmol/L 09/13/2024 2:52 PM CDT [facility] SPECIMEN SOURCE, GASES POC Arterial 09/13/2024 2:52 PM CDT [facility] SITE POC ART PUNCT 09/13/2024 2:52 PM CDT [facility] Blood 09/13/2024 2:52 PM CDT 09/13/2024 2:55 PM CDT Narrative [facility] - 09/13/2024 2:52 PM CDT References ranges displayed are for Arterial samples. Peña Mata MD POINT OF CARE TESTING Fi nal Result [facility] CLIA # [id number] [address] [address] [place] [address] * URINE CULTURE (09/13/2024 1:12 PM CDT) CULTURE Polymicrobial growth consistent with normal urethral kota and/or colonizing bacteria 09/14/2024 11:22 AM CDT [facility] Urine URINE SPECIMEN OBTAINED BY CLEAN CATCH PROCEDURE / Unknown Collection / Unknown 09/13/2024 1:12 PM CDT 09/13/2024 1:20 PM CDT Peña Mata MD MICROBIOLOGY - GENERAL O RDERABLES Final Result Performing Organization Address City/[facility]/ZIP Co de Phone Number [facility] CLIA # [id number] [address] [address] * EXTRA TUBE (BLUE) (09/12/2024 9:32 PM CDT) Only the most recent of2 resultswithin the time period is included. Blood Venipuncture / Unknown 09/12/2024 9:32 PM CDT 09/12/2024 10:59 PM CDT External Provider [facility] HEMATOLOGY ORDERABLES Jana l Result Performing Organization Address City/[facility]/ZIP Co de Phone Number [facility] CLIA # [id number] [address] [address] * Critical Care (09/12/2024 9:09 PM CDT) [...] 0.12(H) <=0.08 ng/mL 08/30/2024 6:32 AM CDT [facility] [employer] [facility] Blood Venipuncture / Unknown 08/30/2024 5:27 AM CDT 08/30/2024 5:41 AM CDT Narrative [facility] [employer] [facility] - 08/30/2024 6:32 AM CDT The [...] Ferrara MD CHEMISTRY ORDERABLES Final Resul t [facility] [employer] [facility] CLIA # [id number] Formerly [facility] [address] [place] [address] * CT CHEST WO CONTRAST (08/18/2024 11:42 [...] - 946 pg/mL 08/16/2024 6:23 AM CDT [facility] FOLATE, SERUM 14.5 3.1 - 17.5 ng/mL 08/16/2024 6:23 AM CDT [facility] Blood Venipuncture / Unknown 08/16/2024 4:59 AM CDT 08/16/2024 5:05 AM CDT us Nayely Mena MD CHEMISTRY ORDERABLES Final Resul t [facility] # [id number] [address] [place] [address] * CT HUMERUS WO CONTRAST LEFT (08/15/2024 [...] - 4.20 uIU/mL 08/14/2024 8:09 PM CDT [facility] [employer] Blood Venipuncture / Unknown 08/14/2024 7:05 PM CDT 08/14/2024 7:14 PM CDT Aki Booth DO CHEMISTRY ORDERABLES Fi nal Result [facility] CLIA # [id number] [address] [address] * XR HUMERUS 2+ VW LEFT (08/14/2024 [...] IMAGING HILTON STUART Final Result * (ABNORMAL) LIPID PANEL (02/19/2024 5:29 AM WELDER FITTER APPRENTICE) [facility] CHOLESTEROL 188 <200 mg/dL 02/19/2024 10:25 AM [facility] TRIGLYCERIDE 104 <150 mg/dL 02/19/2024 10:25 AM [facility] HDL 36(L) 40 - 59 mg/dL 02/19/2024 10:25 AM [facility] LDL CALCULATED 131(H) <100 mg/dL 02/19/2024 10:25 AM [facility] NON-HDL CHOLESTEROL 152(H) <130 mg/dL 02/19/2024 10:25 AM [facility] Blood Venipuncture / Unknown 02/19/2024 5:29 AM WELDER FITTER APPRENTICE 02/19/2024 5:34 AM WELDER FITTER APPRENTICE Formerly [facility] [employer] - 02/19/2024 10:25 AM WELDER FITTER APPRENTICE TOTAL CHOLESTEROL mg/dL Desirable <200 Borderline high [...] Final R esult Performing Organization Address City/[facility] Co de Phone Number [facility] # [id number] [address] [facility] [place] [address] * MICROALBUMIN/CREATININE RATIO, RANDOM UR (02/26/2023 3:01 PM WELDER FITTER APPRENTICE) Creatinine, Urine 199 20 - 275 mg/dL [...] category. FASTING:UNKNOWN FASTING: UNKNOWN Test Performed at: [facility] [address] [address] Emily uDmont MD Urine URINE SPECIMEN OBTAINED BY CLEAN CATCH PROCEDURE / Unknown 02/26/2023 3:01 PM WELDER FITTER APPRENTICE 02/26/2023 3:02 PM WELDER FITTER APPRENTICE Ryann Burk MD URINE ORDERABLES Final Result Performing Organization Address [facility]/ZIP Co de Phone Number [facility] [phone] [facility] [address] [address] [address] * CERV/VAG CYTO SCREEN PAP W/HPV (01/06/2023 12:00 AM CDT) Pathologist [facility] Emergency Department CLINICAL INFORMATION [facility] Comment:None given LAST MENSTRUAL PERIOD [facility] [place] Comment:NONE GIVEN PREV PAP: [facility] Comment:NONE GIVEN PREV BX: [facility] [place] Comment:NONE GIVEN SOURCE [facility] [place] Comment:ENDOCERVIX ADEQUACY: [facility] Comment: Satisfactory for evaluation. Endocervical/transformation zone component present. Age and/or menstrual status not provided PAP INTERP [facility] [place] Comment: Cytology Results: Negative for intraepithelial lesion or malignancy. COMMENT (PAP TEST) [facility] [place] Comment: This Pap test has been evaluated with computer assisted technology. WHARF OPERATOR: Irving Gasca Comment: BKA CT(ASCP) CT screening location: [place] [address] [place] [address] EXPLANATORY NOTE [facility] [place] Comment: EXPLANATORY NOTE: The Pap is a [...] information. HPV E6/E7 Not Detected Not Detected [facility] [place] Comment: Methodology: [employer] Business Analyst-Mediated Amplification This assay detects E6/E7 viral messenger RNA (mRNA) from 14 high-risk HPV types (16,18,31,33,35,39,45,51,52,56,58,59,66,68). Cervical sources are required for HPV testing. If a vaginal source from a patient who has had a total hysterectomy with removal of cervix was submitted, please contact the testing laboratory for alternative testing options. For additional information, please refer to http://education.ScriptPad/faq/QXL936p8 (This link if provided for information/ educational purposes only.) Test Performed at: [facility] [address] [address] Emily TRAN Genital SWAB OF ENDOCERVIX / Unknown 01/06/2023 01/08/2023 10:07 AM CDT us Ryann Burk MD PATHOLOGY/CYTOLOGY ORDERABLES Fi nal Result [facility] [phone] [facility] [address] [address] [address] * MAMMO DIAGNOSTIC UNI RIGHT W OR [...] Failure Problem 05/12/2024 Insurance [place] * Guarantor: LE DIAZ Account Type Relation to Patient Date of Phone Billing Address Personal/Family [address] [place] [address] RX INFOCROSSING Medicaid RX [employer] PL[employer] (INTERNAL) [facility] [employer] [place] [address] Advance Directives For more information, please contact: [phone] Documents on File Type Date Recorded 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 Advance Directive Living Will 07/23/2023 11:03 AM Advance Directive Living Will Advance Directive POA 07/23/2023 11:03 AM A dvance Directive POA * Full Code (Latest Code Status on File) Date Activated Date Inactivated Comments 11/08/2024 7:53 AM 11/10/2024 4:09 PM * Full Code Date Activated Date Inactivated Comments 11/05/2024 7:39 PM 11/07/2024 5:10 PM * Full Code Date Activated Date Inactivated Comments 10/31/2024 10:41 AM 11/04/2024 6:24 PM * Full Code Date Activated Date Inactivated Comments 10/26/2024 5:31 PM 10/29/2024 2:42 PM * Full Code Date Activated Date Inactivated Comments 10/16/2024 3:45 AM 10/19/2024 1:44 PM Care Teams Germination Worker Relationship Specialty Start Date End Date Delta Wade MD [address] [address] PCP - General Family Practice 03/25/24
--- OUTSIDE RECORDS SUMMARY | 2024-11-13 01:18 | XMS_ITS | Patient Health Record ---
Author Organization [facility] Address [address] [place] [address] Care Team Providers Care Mobile Game Engineer Name Role Phone Delta Wade Primary Care Provider UnavailJose Cruz Tomas Unavailable [phone] Gregorio Montes Unavailable [phone] Masoud Bello Unavailable [phone] Acacia Gaines Unavailable [phone] Hannah Rai Unavailable [phone] Allergies Allergen (clinical drug ingredient) Drug/Non Drug Allergy documented on EMR Reaction Allergy Type Onset Date Status Compazine Unknown Drug Allergy Active ketorolac Ketorolac Unknown Drug Allergy Active Results Component Value Reference Range Notes Prothrombin Time 38417 Reviewed date:05/16/2024 05:08:19 PM Interpretation: Performing Lab: Notes/Report: trop 2nd@ 3510 @ 0021 3510 @ 0021 ProTime 10.8 9.1-11.9 SEC Normal Range: 9.1-11.9 INR 1.02 .90-1.20 Therapeutic Range: 2.0-3.0 Therapaeutic Range for heart valve replacement: 2.5-3.50 Partial Thromboplastin Time 77429 Reviewed date:05/16/2024 05:08:19 PM Interpretation: Performing Lab: Notes/Report: trop 2nd@ 3510 @ 0021 3510 @ 0021 PTT 27.1 22.6-31.8 SEC Therapeutic Range: 60-100. Critical Value Starting at > 100. Echo Complete EC-[id number] Reviewed date:11/30/2023 12:41:13 PM Interpretation: Performing Lab: [...] Performed By: Alexandra Herrera RCS Echo Complete EC-[id number] Reviewed date:11/30/2023 12:41:13 PM Interpretation: Performing Lab: Notes/Report: jyq=[id number]&org=iSite NM HB Scan w/ejection fracti on-47757 Reviewed date:01/05/2024 04:36:45 PM Interpretation: Performing Lab: Notes/Report: [id number]&org=iSite NM HB Scan w/ejection fracti on-62300 Reviewed date:01/05/2024 04:37:06 PM Interpretation: Performing Lab: Notes/Report: See Below For Report NM HB Scan w/ejection fraction 2407 @ 2313 Read See Below For Report zzzHeart Cath Lt poss PTCA Reviewed date:05/16/2024 05:08:19 PM Interpretation: Performing Lab: Notes/Report: dpt=[id number]&org=iSite zzzHeart Cath Lt poss PTCA Reviewed date:11/30/2023 12:40:58 PM Interpretation: Performing Lab: Notes/Report: See Below For Report This report was dictated outside of the [employer] system. 3523 @ 0100 Read See Below For Report zzzHeart Cath Lt poss PTCA Reviewed date:11/30/2023 12:41:13 PM Interpretation: Performing Lab: Notes/Report: yue=[id number]&org=iSite zzzHeart Cath Lt poss PTCA Reviewed date:05/16/2024 05:08:19 PM Interpretation: Performing Lab: Notes/Report: See Below For Report This report was dictated outside of the [employer] system. trop 2nd@ 205 3510 @ 0021 [...] First Name ER Referring Provider Last Name [facility] Referring Provider Speciality Emergency Medicine Referred Organization [facility] Referred Provider Jose Cruz Landry Referred Address [address] [place] [address] [address],[place], [place],[address], Referred Provider Specialty Pulmonary Di seases General [...] Date Status Comme nts Influenza (whole), CPT 34041 Inactive Unknown 01/04/2024 Administered Social History Tobacco [...] W/U Status Risk Notes Problem Tobacco user (747837538) Nicotine dependence, cigarettes, in remission (F17.211) Active confirmed Problem Ischemic cardiomyopathy (588579663) Ischemic cardiomyopathy (I25.5) Active confirmed Problem Chronic obstructive pulmonary disease (72606487) Chronic obstructive pulmonary disease, unspecified (J44.9) Active confirmed Problem Gastro-esophageal reflux disease without esophagitis (969724796) Gastro-esophageal reflux disease without esophagitis (K21.9) Active confirmed Problem C-reactive protein abnormal (541210641) Elevated C-reactive protein (CRP) (R79.82) Active confirmed Problem Solitary pulmonary nodule (665074565) Solitary pulmonary nodule (R91.1) Active confirmed Problem Long-term current use of anticoagulant (854833237) emt intermediate (current) use of anticoagulants (Z79.01) Active confirmed Problem Atherosclerotic heart disease of habematolel coronary artery without angina pectoris (680032668026557) Arteriosclerosis of coronary artery (I25.10) Active confirmed Problem History of placement of stent for coronary artery disease (situation) (916976485) H/O heart artery stent (Z95.5) Active confirmed Problem Long-term current use of anticoagulant (144109505) Anticoagulated (Z79.01) Active confirmed Problem Angina (188040374) Atheroscleros is of habematolel coronary artery of habematolel heart with angina pectoris (I25.119) Active confirmed Problem Acute non-ST segment elevation myocardial infarction (271502666) Non-ST elevated myocardial infarction (I21.4) Active confirmed Problem History of pulmonary embolus (711496417) Hx of pulmonary embolus (Z86.711) Active confirmed Problem Coronary stent patent (524527000) Coronary stent patent (Z95.5) Active confirmed Problem Chronic respiratory failure (34580686) Chronic hypoxic respiratory failure (J96.11) Active confirmed [...] N/A Encounters Encounter Location Date Provider Diagnosis [facility] Pulmonology [address] [place] [address] 06/20/2024 Jose Cruz Landry Solitary pulmonary nodule R91.1 ; Chronic hypoxic respiratory failure J96.11 ; Nicotine dependence, cigarettes, in remission F17.211 and Shortness of breath R06.02 [facility] [address] [place] [address] 02/17/2024 Gregorio Montes [facility] [place] [address] [place] [address] 06/06/2024 Masoud Bello Other fracture of unspecified lumbar vertebra, initial encounter for closed fracture S32.008A [facility] [address] [place] [address] [place] [address] 06/30/2024 Jose Cruz Landry Assessments Encounter Date [...] remission (ICD-10 - F17.211) Patient smoked a [id number] for 45 years. She has been abstinent [...] Test Test Name Order Date Lumbosacral Spine AP/Lat-04885 PFT with FRC: (NO TGV) 06/20/2024 CT Chest ION Endoluminal-49145 5 Insurance Providers Payer Name Payer Address Payer Phone Subscriber Number Group Number Insured Name Patient Relationship to Insured Coverage Start Date Coverage End Date [place] [address] [place] [address] [phone] [id number] GIANFRANCO DIAZ Self - patient is the [...]
--- OUTSIDE RECORDS SUMMARY | 2024-11-13 01:18 | XMS_ITS | Patient Health Record ---
Author Organization [facility] Address [address] [place] [address] Care Team Providers Care Mortgage Processing Clerk Name Role Phone ( [facility] ), PHYSICIAN NOT IDENTIFIED Primary Care Provider Unavailable Dominguez Mckay Unavailable [phone] Kyler Martin Unavailable [phone] Allergies Allergen (clinical drug ingredient) Drug/Non Drug [...] Female Encounters Encounter Location Date Provider Diagnosis [facility] [address] [place] [address] 06/08/2024 Dominguez Obhade [address] [place] [address] [address] [place] [address] 09/28/2024 Dominguez Mckay Plan Of Treatment No Information Insurance Providers Payer Name Payer Address Payer Phone Subscriber Number Group Number Insured Name Patient Relationship to Insured Coverage Start Date Coverage End Date Medicaid Dental [address] [place] [address] [id number] Le Barnhart Self - patient is the insured Medicaid [address] [place] [address] [phone] [id number] Le Barnhart Self - patient is the insured Medical (General) History Medical History History ICD Code heart murmer diabetes emphysema cancer chemotherapy high bp radiation treatment
--- NOTE | 2024-11-13 01:23 | ECG_ITS ---
[facility]: 2024-11-13 Pat Name: Le Barnhart Department: Room: Gender: Female Community Health Nurse Staff: : 1965 Requested By: Sergio Queen Order Number: [id number] Lopez MD: Ivis Drake M.D. Measurements Intervals Likely Rate: 97 P: 45 [place]: 152 QRS: 44 QRSD: 90 T: 22 QT: 348 QTc: 444 Interpretive Statements SINUS RHYTHM PROBABLE INFERIOR MYOCARDIAL INFARCTION , PROBABLY OLD [35 ms Q WAVE IN II/aVF] Compared to ECG 11/07/2024 23:03:25 nonspecific T wave change No significant changes Electronically Signed On 11-13-2024 18:49:38 CDT by Ivis Drake M.D. [email or web address]
[2024-11-13 01:27] VITALS: BP 179/87; PULSE 101; RESP 24; TEMP 36.6; O2SAT 94; BMI 36.3
[2024-11-13 01:34] VITALS: BP 148/78; PULSE 98; RESP 21; O2SAT 98
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
--- NOTE | 2024-11-13 01:51 | XRR_ITS ---
PROCEDURE INFORMATION: Exam: XR Chest Exam date and time: 11/13/2024 1:52 AM Age: 59 years old Clinical indication: Shortness of breath; Prior surgery; Surgery date: 6+ months; Surgery type: Cervical fusion. Splenectomy; C/O SOB TECHNIQUE: Imaging protocol: Radiologic exam of the chest. Views: 1 view. COMPARISON: CR (CHEST, ) 11/07/2024 11:33 PM FINDINGS: Lungs: Low lung volumes. Negative for consolidation. Pleural spaces: Smooth right pleural thickening. Negative for pneumothorax. Heart/Mediastinum: Unremarkable. No cardiomegaly. Bones/joints: ACDF plate in the lower cervical spine. Negative for acute thoracic fractures. XR/XR chest 1V portable [id number] IMPRESSION: Negative for focal acute pulmonary disease.
[2024-11-13 02:19] LABS: ABG PCO2 42.7 mmHg (35-45); ABG PH Result 7.45 (7.35-7.45); Arterial Blood Gas Hematocrit 34.5 % (37-47); Blood Gas Allen Test Pos; Blood Gas LPM 3.0 %; Blood Gas Operator Identificat gerca; Blood Gas Sample Site Radial, left; Blood Gas Sample Type Arterial; Carboxyhemoglobin 0.5 %THgb (0.4-20.1); HCO3 ABG 29.7 mmol/L (22-26); Methemoglobin 0.1 % (0.4-1.5); PO2 ABG 83.4 mmHg (80.0-100.0); PO2 FiO2 Ratio Arterial Blood 260
[2024-11-13] MEDS: haloperidol inj 5 mg/mL INJ 1 mL 3 MG IVP (03:09)
[2024-11-13 03:13] VITALS: PULSE 70; PULSE 80; RESP 22; O2SAT 97
[2024-11-13 03:17] LABS: Hematocrit 34.7 % (36-47); Hemoglobin 10.70 g/dL (11.27-16.99); Mean Corpuscular HGB Conc 30.8 g/dL (30-55); Mean Corpuscular Hemoglobin 30.1 pg (27-33); Mean Corpuscular Volume 97.5 fl (85-98); Nucleated Red Blood Cells % 2.6 %; Platelet Count 190 10^3/cmm (157-399); Red Blood Count 3.56 10^6/uL (3.85-5.65); White Blood Count 8.84 10^3/uL (3.29-11.43)
[2024-11-13] MEDS: methylPREDNISolone sod succ 125 mg/2 mL INJ 80 MG IVP (03:29)
[2024-11-13 03:30] VITALS: BP 123/58; PULSE 106; O2SAT 95
[2024-11-13 03:31] LABS: INR 1.07 (0.8-1.2); Prothrombin Time 14.70 SECONDS (12.1-14.9)
[2024-11-13 03:35] LABS: Lactic Sepsis W/Reflex 2.0 mmol/L (0.5-2.2)
[2024-11-13 03:38] LABS: Respiratory Syncytial Virus Ce NEGATIVE (Negative); SARS-CoV-2 PCR NEGATIVE (Negative)
[2024-11-13 03:46] LABS: Alanine Aminotransferase 37 U/L (0-33); Albumin Level 3.4 g/dL (3.5-5.2); Alkaline Phosphatase 111 U/L (35-105); Anion Gap 13.0 (5-19); Aspartate Amino Transferase 20 U/L (0-32); Blood Urea Nitrogen 18 mg/dL (6-20); Calcium 9.3 mg/dL (8.5-10.5); Carbon Dioxide 30 mmol/L (22-29); Chloride 102 mmol/L (98-107); Creatinine Clr Calc Pharmacy 113.6102; Globulin 2.5 g/dL (1.3-4.6); Glucose 302 mg/dL (65-115); NT Pro B Type Natriuretic Pept 281 pg/mL (0-125); Osmolality Calculated 305 mOsm/kg (285-295); Potassium 4.0 mmol/L (3.5-5.1); Sodium 141 mmol/L (136-145); Total Protein 5.9 g/dL (6.6-8.7)
== END 2024-11-13 03:33 | disposition home or self-care (01) ==
PROVIDERS: Emergency Provider Emergency Medicine; PCP Family Medicine
DX: J44.9 Chronic obstructive pulmonary disease, unspecified (principal); Z79.01 Long term (current) use of anticoagulants; Z79.4 Long term (current) use of insulin; Z79.85 Long-term (current) use of injectable non-insulin antidiabetic drugs; Z11.52 Encounter for screening for COVID-19; Z87.891 Personal history of nicotine dependence; I10 Essential (primary) hypertension; I25.110 Atherosclerotic heart disease of native coronary artery with unstable angina pectoris; E11.9 Type 2 diabetes mellitus without complications
CPT/HCPCS: 36415; 36600; 71045; 80053; 82805; 83605; 83880; 85025; 85610; 87637; 93005; 94640; 94660; 96374; 96375; 99285; J1630; J2919; J9999

== ENCOUNTER 2024-11-17 00:43 | Emergency (ER) | payer MEDICAID, SELFPAY ==
--- OUTSIDE RECORDS SUMMARY | 2020-06-27 10:30 | XMS_ITS | Continuity of Care Document ---
Author Organization [facility] Address [address] [place] [address] Phone Care Team Providers Care Certifed Refrigeration Operator Name Role Phone Unavailable Unavailable Unavailable Allergies, [...] Active Procedures Procedure Date OFFICE/OUTPATIENT VISIT, [facility] Advance Directives Directive Yes / No Effective Date File Name No Information Encounters Encounter Description Practice Location Reason(s) For Visit Diagnoses Date Provider Providers Copied on Encounter OFFICE/OUTPA TIENT VISIT, [facility], [address], [place], [place], [address] , [place] tel: [phone] [facility] follow up [...] party ID Authoriza dioni(s) Medicaid - Medical [id number] Social History Type Description Quantity Date Captured [...] her vagina and is being managed at [facility]. Patient has HTN, hip pain, [...] her vagina and is being managed at [facility]. Patient has HTN, hip pain, [...]
--- OUTSIDE RECORDS SUMMARY | 2024-11-08 04:05 | XMS_ITS | Encounter Summary ---
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 [facility] EOSINOPHIL ABSOLUTE 0.00 0.00 - 0.70 K/uL 11/09/2024 1:41 AM CDT [facility] BASOPHILS ABSOLUTE 0.04 0.00 - 0.20 K/uL 11/09/2024 1:41 AM CDT [facility] IMMATURE GRANULOCYTES ABSOLUTE 0.24(H) 0.00 - 0.10 K/uL 11/09/2024 1:41 AM CDT [facility] SMEAR REVIEWED: NN - No Action Needed 11/09/2024 1:41 AM CDT [facility] Blood Venipuncture / Unknown 11/09/2024 1:25 AM CDT 11/09/2024 1:31 AM CDT Yaya Garcia MD HEMATOLOGY ORDERABLES Jana l Result [facility] CLIA # [id number] [address] [address] * (ABNORMAL) POC GLUCOSE (11/08/2024 8:52 PM CDT) GLUCOSE POC 237(H) 74 - 99 mg/dL 11/08/2024 8:52 PM CDT [facility] SPECIMEN SOURCE, GLUCOSE POC Capillary 11/08/2024 8:52 PM CDT [facility] Blood, whole 11/08/2024 8:52 PM CDT 11/08/2024 9:20 PM CDT Yaya Garcia MD POINT OF CARE TESTING Jana l Result Performing Organization Address City/[facility]/ZIP Co de Phone Number [facility] CLIA # [id number] [address] [address] * XR LUMBAR SPINE 2 OR 3 [...] (11/08/2024 5:49 PM CDT) GLUCOSE POC 556(HH) 74 - 99 mg/dL 11/08/2024 5:49 PM CDT [facility] SPECIMEN SOURCE, GLUCOSE POC Capillary 11/08/2024 5:49 PM CDT [facility] COMMENT, GLU POC Alerted Nurse/MARIELLA/DR 11/08/2024 5:49 PM CDT [facility] Blood, whole 11/08/2024 5:49 PM CDT 11/08/2024 5:58 PM CDT Yaya Garcia MD POINT OF CARE TESTING Jana l Result Performing Organization Address [facility]/ZIP Co de Phone Number [facility] CLIA # [id number] [address] [address] [place], [place] [id number] * (ABNORMAL) POC GLUCOSE (11/08/2024 5:03 PM CDT) GLUCOSE POC >600(HH) 74 - 99 mg/dL 11/08/2024 5:03 PM CDT [facility] SPECIMEN SOURCE, GLUCOSE POC Capillary 11/08/2024 5:03 PM CDT [facility] Blood, whole 11/08/2024 5:03 PM CDT 11/08/2024 5:58 PM CDT Yaya Garcia MD POINT OF CARE TESTING Jana l Result Performing Organization Address City/[facility]/ZIP Co de Phone Number [facility] CLIA # [id number] [address] [address] * (ABNORMAL) POC GLUCOSE (11/08/2024 11:58 AM CDT) GLUCOSE POC 493(HH) 74 - 99 mg/dL 11/08/2024 11:58 AM CDT [facility] SPECIMEN SOURCE, GLUCOSE POC Venous 11/08/2024 11:58 AM CDT [facility] COMMENT, GLU POC Alerted Nurse/MARIELLA/D R 11/08/2024 11:58 AM CDT [facility] Blood, whole 11/08/2024 11:5 8 AM CDT 11/08/2024 12:08 PM CDT Jonny Bowers MD POINT OF CARE TESTING Final Result Performing Organization Address [facility]/ZIP Co de Phone Number [facility] CLIA # [id number] [address] [place] [address] * (ABNORMAL) POC GLUCOSE (11/08/2024 10:02 AM CDT) [facility] GLUCOSE POC 492(HH) 74 - 99 mg/dL 11/08/2024 10:02 AM CDT [facility] SPECIMEN SOURCE, GLUCOSE POC Venous 11/08/2024 10:02 AM CDT [facility] Blood, whole 11/08/2024 10:0 2 AM CDT 11/08/2024 10:10 AM CDT Jonny Bowers MD POINT OF CARE TESTING Final Result Performing Organization Address [facility] Co de Phone Number [facility] CLIA # [id number] [address] [address] * RESPIRATORY PATHOGEN PCR PANEL (11/08/2024 4:36 AM CDT) [facility] Respiratory Pathogen PCR Panel NOT DETECTED No respiratory pathogen nucleic acids detected. 11/08/2024 5:41 AM CDT [facility] COVID-19 PCR NOT DETECTED Not Detected 11/08/2024 5:41 AM CDT [facility] Upper Respiratory ENTIRE NASOPHARYNX / Unknown Collection / Unknown 11/08/2024 4:36 AM CDT 11/08/2024 4:42 AM CDT Peggy [facility] - 11/08/2024 5:41 AM CDT The Film [...] MICROBIOLOGY - GENERAL ORDER JANAY Final Result [facility] CLIA # [id number] [facility] [address] * (ABNORMAL) BLOOD GAS ARTERIAL (11/08/2024 4:34 AM CDT) PH BLOOD POC 7.46(H) 7.35 - 7.45 11/08/2024 4:34 AM CDT [facility] PCO2 POC 45 35 - 45 mm Hg 11/08/2024 4:34 AM T [facility] PO2 POC 83 80 - 105 mm Hg 11/08/2024 4:34 AM T [facility] HCO3 (CALC) POC 32(H) 22 - 26 mmol/L 11/08/2024 4:34 AM T [facility] HEMOGLOBIN POC 11.4(L) 12.0 - 18.0 g/dL 11/08/2024 4:34 AM T [facility] BASE EXCESS POC 8(H) -2 - 3 mmol/L 11/08/2024 4:34 AM T [facility] O2 SATURATION POC 97 95 - 98 % 11/08/2024 4:34 AM CDT [facility] SODIUM POC 138 138 - 146 mmol/L 11/08/2024 4:34 AM T [facility] POTASSIUM POC 3.7 3.5 - 4.9 mmol/L 11/08/2024 4:34 AM T [facility] HEMATOCRIT POC 34(L) 38 - 51 % 11/08/2024 4:34 AM T [facility] PH TEMP CORRECT 7.46(H) 7.35 - 7.45 11/08/2024 4:34 AM CDT [facility] PCO2 TEMP CORRECT 45 35 - 45 mm Hg 11/08/2024 4:34 AM CDT [facility] PO2 TEMP CORRECT 83 80 - 105 mm Hg 11/08/2024 4:34 AM CDT [facility] SPECIMEN SOURCE, GASES POC Arterial 11/08/2024 4:34 AM CDT [facility] CALCIUM IONIZED POC 5.0 4.8 - 5.2 mg/dL 11/08/2024 4:34 AM CDT [facility] TCO2 (CALC) POC 33(H) 23 - 27 mmol/L 11/08/2024 4:34 AM CDT [facility] PUNC SITE POC ART PUNCT 11/08/2024 4:34 AM CDT [facility] Blood, arterial 11/08/2024 4 :34 AM CDT 11/08/2024 4:35 AM CDT us Jonny Bowers MD ABG ORDERABLES Final Result [facility] CLIA # [id number] [address] [place] [id number] * (ABNORMAL) PROTIME-INR (11/08/2024 4:21 AM CDT) PROTIME 26.0(H) 12.7 - 14.9 Seconds 11/08/2024 4:49 AM CDT [facility] INR 2.3(H) 0.8 - 1.2 11/08/2024 4:49 AM CDT [facility] Blood Venipuncture / Unknown 11/08/2024 4:21 AM CDT 11/08/2024 4:30 AM CDT Narrative [facility] - 11/08/2024 4:49 AM CDT Expected Values for INR: DVT/PE Goal INR 2.5; range 2.0 - 3.0 Valve Replacement Tissue Goal INR 2.5; range 2.0 - 3.0 Valve Replacement Mechanical Goal INR 3.0; range 2.5 - 3.5 POST-NE Goal INR 2.5; range 2.0 - 3.0 or Goal INR 3.0; range 2.5 - 3.5 Atrial Fibrillation Goal INR 2.5; range 2.0 - 3.0 Ischemic Stroke Goal INR 2.5; range 2.0 - 3.0 Jonny Bowers MD HEMATOLOGY ORDERABLES Final Result Performing Organization Address [facility] de Phone Number [facility] Captual [facility] CLIA # [id number] [address] [address] * (ABNORMAL) BRAIN NATRIURETIC PEPTIDE, BNP OR PROBNP (11/08/2024 4:20 AM CDT) PROBNP, N TERMINAL 360(H) 0 - 125 pg/mL 11/08/2024 5:06 AM CDT [facility] Captual [facility] Comment: INTERPRETIVE COMMENT based on diagnosis: [...] Bowers MD CHEMISTRY ORDERABLES Final R esult Performing Organization Address [facility]/ZIP Co de Phone Number [facility] Captual [facility] CLIA # [id number] [address] [place] [address] [place] [address] * (ABNORMAL) COMPREHENSIVE METABOLIC PANEL (11/08/2024 4:20 AM [facility]) SODIUM 143 136 - 145 mmol/L 11/08/2024 5:06 AM [facility] POTASSIUM 4.0 3.5 - 5.1 mmol/L 11/08/2024 5:06 AM [facility] CHLORIDE 103 98 - 107 mmol/L 11/08/2024 5:06 AM [facility] CO2 30(H) 22 - 29 mmol/L 11/08/2024 5:06 AM [facility] CALCIUM 9.7 8.6 - 10.0 mg/dL 11/08/2024 5:06 AM [facility] BUN 27(H) 6 - 20 mg/dL 11/08/2024 5:06 AM [facility] CREATININE 0.69 0.51 - 0.95 mg/dL 11/08/2024 5:06 AM [facility] GLUCOSE 312(H) 74 - 99 mg/dL 11/08/2024 5:06 AM [facility] TOTAL PROTEIN 6.6 6.4 - 8.3 g/dL 11/08/2024 5:06 AM [facility] ALBUMIN 3.7 3.5 - 5.2 g/dL 11/08/2024 5:06 AM [facility] BILIRUBIN TOTAL 0.2 0.0 - 1.0 mg/dL 11/08/2024 5:06 AM [facility] ALKALINE PHOSPHATASE 122(H) 35 - 104 U/L 11/08/2024 5:06 AM [facility] AST 18 10 - 35 U/L 11/08/2024 5:06 AM [facility] Comment:Hemolysis present. R esult may be falsely elevated. ALT 31 <=35 U/L 11/08/2024 5:06 AM CDT [facility] GFR >60 >=60 mL/min/1.7 3 sq meter 11/08/2024 5:06 AM CDT [facility] Comment:eGFR calculated with 2020 CKD-EPI equation. Vegetarian diet, extremely high or low muscle mass, and may affect results. Cystatin C with Glomerular Filtration Rate is a suitable alternative for these patients. ANION GAP 10 9 - 20 mmol/L 11/08/2024 5:06 AM T [facility] Blood Venipuncture / Unknown 11/08/2024 4:20 AM CDT 11/08/2024 4:30 AM CDT us Jonny Bowers MD CHEMISTRY ORDERABLES Final R esult [facility] CLIA # [id number] [address] [place] [address] * (ABNORMAL) CBC WITH DIFFERENTIAL (11/08/2024 4:20 AM CDT) WBC 10.3 4.8 - 10.8 K/uL 11/08/2024 4:48 AM T [facility] NRBCS 2(H) <1 % 11/08/2024 4:48 AM T [facility] RBC 3.77(L) 4.20 - 5.40 M/uL 11/08/2024 4:48 AM CDT [facility] HEMOGLOBIN 11.2(L) 12.0 - 16.0 g/dL 11/08/2024 4:48 AM T [facility] HEMATOCRIT 35.9(L) 36.0 - 46.0 % 11/08/2024 4:48 AM CDT [facility] MCV 95.2 84.0 - 103.0 fL 11/08/2024 4:48 AM CDT [facility] MCH 29.7 27.0 - 34.0 pg 11/08/2024 4:48 AM [facility]T [facility] M[facility]C 31.2 30.0 - 35.0 g/dL 11/08/2024 4:48 AM [facility] PLATELETS 209 140 - 440 K/uL 11/08/2024 4:48 AM [facility] MPV 10.5 8.9 - 12.8 fL 11/08/2024 4:48 AM [facility] Captual [facility] RDW 18.9(H) 11.0 - 14.5 % 11/08/2024 4:48 AM [facility] RDW-STDEV 64.7(H) 37.0 - 54.0 fL 11/08/2024 4:48 AM [facility] NEUTROPHILS 58 42 - 75 % 11/08/2024 4:48 AM [facility] Captual [facility] LYMPHOCYTES 26 24 - 44 % 11/08/2024 4:48 AM [facility] Captual [facility] MONOCYTES 13(H) 2 - 10 % 11/08/2024 4:48 AM [facility] Captual [facility] EOSINOPHILS 0 0 - 7 % 11/08/2024 4:48 AM [facility] Captual [facility] BASOPHILS 0 0 - 1 % 11/08/2024 4:48 AM [facility] IMMATURE GRANULOCYTES 3(H) 0 - 2 % 11/08/2024 4:48 AM [facility] NEUTROPHIL ABSOLUTE 5.99 2.00 - 8.00 K/uL 11/08/2024 4:48 AM [facility] LYMPHOCYTE ABSOLUTE 2.65 1.20 - 4.00 K/uL 11/08/2024 4:48 AM [facility] Captual [facility] MONOCYTE ABSOLUTE 1.31(H) 0.10 - 0.60 K/uL 11/08/2024 4:48 AM [facility] Captual [facility] EOSINOPHIL ABSOLUTE 0.02 0.00 - 0.70 K/uL 11/08/2024 4:48 AM [facility] BASOPHILS ABSOLUTE 0.03 0.00 - 0.20 K/uL 11/08/2024 4:48 AM [facility] IMMATURE GRANULOCYTES ABSOLUTE 0.27(H) 0.00 - 0.10 K/uL 11/08/2024 4:48 AM CDT [facility] SMEAR REVIEWED: NN - No Action Needed 11/08/2024 4:48 AM CDT [facility] Blood Venipuncture / Unknown 11/08/2024 4:20 AM CDT 11/08/2024 4:30 AM CDT us Jonny Bowers MD HEMATOLOGY ORDERABLES Final Result [facility] CLIA # [id number] [address] [place] [phone] * XR CHEST PA OR AP 1 [...] encounter Visit Diagnoses Diagnosis COPD with exacerbation ([facility])- Primary Obstructive chronic bronchitis with exacerbation COPD with exacerbation ([facility]) Obstructive chronic bronchitis with exacerbation Acute on chronic hypoxic respiratory failure ([facility]) Essential hypertension Unspecified essential hypertension HEENA (generalized anxiety disorder) Generalized anxiety disorder GERD (gastroesophageal reflux disease) Esophageal reflux History of splenectomy Other acquired absence of organ History of pulmonary embolism Personal history of pulmonary embolism Insulin dependent type 2 diabetes mellitus ([facility]) Type II or unspecified type diabetes mellitus without mention of complication, not stated as uncontrolled Mixed hyperlipidemia Obesity Obesity, unspecified Chronic pain syndrome Chronic combined systolic and diastolic congestive heart failure ([facility]) Chronic combined systolic and diastolic heart failure [...] PRN, Starting on Thu11/08/24 at 0748, Until [place] 11/10/24 at 1604, Anxiety, Routine, Previous Med: LORazepam [...] Shannon LPN) 836 (Given - Provider: Harika Mendoza RN) atorvastatin (LIPITOR) tablet 40 mg 40 [...] INSTRUCTIONS, Starting on Thu11/08/24 at 0753, Until [place] 11/10/24 at 1604, Routine dextrose 50% (D50) syringe [...] Enter in Comments, Antibiotic Indication: copd excb 0953 (Given - Provider: SYLVIA Fonseca)2009 (Given [...] in the morning. , Indication: Heart Failure 952 (Given - Provider: SYLVIA Fonseca) 513 (Given - Provider: Kamille Dan RN) 405 (Given - Provider: Janey Reese LPN) fluticasone furoate-vilanteroL (BREO ELLIPTA) 100-25 mcg/dose inhaler 1 Puff 1 Puff, Inhalation, DAILY RESPIRATORY, First dose on Thu11/08/24 at 1200, Until Discontinued, Routine 1200 (Due) 0800 (Refused - Provider: Dedra Shannon LPN) 0835 (Given - Provider: Harika Mendoza, MARICARMEN) furosemide (LASIX) tablet 80 mg 80 mg, [...] Reese LPN) 836 (Given - Provider: Harika Mendoza, MARICARMEN) glucagon HCL 1 mg/mL injection 1 mg 1 mg, IM, SEE ADMIN INSTRUCTIONS, Starting on Thu11/08/24 at 0753, Until Thu11/10/24 at 1604, Routine guaiFENesin (MUCINEX) SR tablet 600 mg 600 mg, Oral, EVERY 12 HOURS (BlD), First dose on Thu11/08/24 at 0915, Until Discontinued, Routine 0953 (Given - Provider: SYLVIA Fonseca)2004 (Given - Provider: Kamille Dan RN) 0842 (Given - Provider: Dedra Shannon LPN)2058 (Given - Provider: Janey Reese LPN) 0836 (Given - Provider: Harika Mendoza, MARICARMEN) insulin glargine-yfgn injection 30 Units 30 Units, subCUT, TWO TIMES DAILY, First dose (after last modification) on Thu11/09/24 at 2100, Until Discontinued, Routine 2057 (Given - Provider: Janey Reese LPN) 836 (Given - Provider: Harika Mendoza, MARICARMEN) insulin glargine-yfgn injection 40 Units (CANCELED) 40 [...] / vitals) 0729 (Given - Provider: Harika Mendoza, MARICARMEN)1200 (Not Given - Provider: Harika Mendoza RN [...] Strict NPO)1200 (Not Given - Provider: SYLVIA Fonesca - Reason: Clarify-Other (Comment) - Comment: clarified [...] 1 dose, On Thu11/08/24 at 0415, Routine 0410 (Given - Provider: Megan Armendariz) ipratropium-albuteroL (DUONEB) 0.5 mg-3 mg(2.5 mg base)/3 mL inhalation solution 3 mL (COMPLETED) 3 mL, Inhalation, ONE TIME ONLY RESPIRATORY, 1 dose, On Thu11/08/24 at 0415, Routine 0410 (Given - Provider: Megan Armendariz) ipratropium-albuteroL (DUONEB) 0.5 mg-3 mg(2.5 mg base)/3 mL inhalation solution 3 mL (COMPLETED) 3 mL, Inhalation, ONE TIME ONLY RESPIRATORY, 1 dose, On Thu11/08/24 at 0415, Routine 0410 (Given - Provider: Megan Armendariz) ipratropium-albuteroL (DUONEB) [...] Breath. 194 (Refused - Provider: Michael Roberts COUNSELING DIRECTOR) 0757 (Refused - Provider: Lex Loaiza [facility])1925 (Given - Provider: Kyler Vitale [facility]) 0700 (Refused - Provider: Cande Nicholson COUNSELING DIRECTOR) isosorbide mononitrate (IMDUR) SR 24 hour tablet 30 mg 30 mg, Oral, DAILY, First dose on Thu11/08/24 at 0900, Until Discontinued, Routine, Previous Med: isosorbide mononitrate (IMDUR) 30 mg Extended Release 24 hour tablet - Orig Sig - TAKE 1 TABLET BY MOUTH EVERY DAY 0938 (Given - Provider: SYLVIA Fonseca) 0842 (Given - Provider: Dedra Shannon LPN) 0836 (Given - Provider: Harika Mendoza RN) methylPREDNISolone sodium succinate (SOLU-Medrol) 125 mg in sterile water 2 mL injection (COMPLETED) 125 mg, IV, ONE TIME ONLY, 1 dose, On Thu11/08/24 at 0415, Routine 0422 (Given - Provider: SYLVIA Madden) methylPREDNISolone sodium succinate (SOLU-Medrol) 40 mg in sterile water 1 mL injection (CANCELED) 40 mg, IV, EVERY 6 HOURS, First dose on Thu11/08/24 at 0900, Until Discontinued, Routine 0939 (Given - Provider: SYLVIA Fonseca)1731 (Given - Provider: Lisa Montero RN)2347 (Given - Provider: Kamille Dan RN) 0514 (Given - Provider: Kamille Dan RN) methylPREDNISolone sodium succinate (SOLU-Medrol) 40 mg in sterile water 1 mL injection 40 mg, IV, EVERY 12 HOURS (BlD), First dose (after last modification) on Thu11/09/24 at 2100, Until Discontinued, Routine 2058 (Given - Provider: Janey Reese LPN) 0840 (Given - Provider: Harika Mendoza RN) metoprolol succinate (TOPROL XL) SR 24 hour tablet 25 mg 25 mg, Oral, DAILY, First dose on Thu11/08/24 at 0900, Until Discontinued, Routine, Previous Med: metoprolol succinate (TOPROL XL) 25 mg Extended Release 24 hour tablet - Orig Sig - Take 1 Tablet (25 mg) by mouth daily. 0939 (Given - Provider: SYLVIA Fonseca) 0842 (Given - Provider: Dedra Shannon LPN) 0837 (Given - Provider: Harika Mendoza RN) morphine 4 mg/mL injection 2 mg [...] RN) 0841 (Given - Provider: Dedra Shannon LPN)1735 (Given - Provider: Dedra Shannon LPN) 08 (Given - Provider: Harika Mendoza RN) ranolazine [...] Fonseca)2009 (Given - Provider: Kamille Dan RN) 841 (Given - Provider: Dedra Shannon LPN)2056 (Given - Provider: Janey Reese LPN) 0835 (Given - Provider: Harika Mendoza, MARICARMEN) sacubitriL-valsartan (ENTRESTO) 24-26 mg tablet 1 Tablet [...] LPN)2058 (Given - Provider: Janey Reese LPN) 0836 (Given - Provider: Harika Mendoza RN) sennosides-docusate sodium (SENNA-S) 8.6-50 mg per tablet 1 Tablet 1 Tablet, Oral, TWO TIMES DAILY, First dose on Thu11/08/24 at 0900, Until Discontinued, Routine 0938 (Given - Provider: SYLVIA Fonseca)2099 (Refused - Provider: Kamille Dan RN) 840 (Given - Provider: Dedra Shannon LPN)2058 (Given - Provider: Janey Reese LPN) 37 (Given - Provider: Harika Mendoza RN) sodium chloride 0.9 % flush bag 25 mL 25 mL, IV, SEE ADMIN INSTRUCTIONS, Starting on Thu11/08/24 at 0751, Until Thu11/10/24 at 1604, Routine sodium chloride flush injection 10 mL 10 mL, IV, EVERY 12 HOURS (BlD), First dose on Thu11/08/24 at 0900, Until Discontinued, Routine 0900 (Due)2004 (Given - Provider: Kamille Dan RN) 841 (Given - Provider: Dedra Shannon LPN)2057 (Given - Provider: Janey Reese LPN) 0835 (Given - Provider: Harika Mendoza RN) sodium [...] 2005 (Given - Provider: Kamille Dan RN) 1736 (Given - Provider: Dedra Shannon LPN) PRN Medication Order 11/08/2024 11/09/2024 11/10/2024 acetaminophen (TYLENOL) tablet 650 mg 650 mg, Oral, EVERY 6 HOURS PRN, Starting on Thu11/08/24 at 0752, Until [place] 11/10/24 at 1604, Other (See Comment), See admin instructions, Routine 2099 (Refused - Provider: Janey Reese LPN) albuterol [...] Until [place] 11/10/24 at 1604, Constipation, Routine HYDROcodone-acetaminophe n (NORCO) 10-325 mg per tablet 1 Tablet 1 Tablet, Oral, EVERY 4 HOURS PRN, Starting on Thu11/08/24 at 0923, Until [place] 11/10/24 at 1604, Pain (See admin instructions), Routine 1142 (Due)1327 (Given - Provider: SYLVIA Fonseca)1730 (Given - Provider: Lisa Montero RN)2132 (Given - Provider: Kamlile Dan RN) 0229 (Given - Provider: Kamille [...] needed for Pain, Moderate or Pain, Severe. 905 (Given - Provider: SYLVIA Fonseca) LORazepam (ATIVAN) tablet 0.5 mg 0.5 mg, [...] 0752, Until Thu11/10/24 at 1604, Constipation, Routine melatonin tablet 3 mg 3 mg, Oral, NIGHTLY PRN, Starting on Thu11/08/24 at 0752, Until Thu11/10/24 at 1604, Insomnia, Routine methocarbamoL (ROBAXIN) tablet 500 mg 500 mg, Oral, EVERY 6 HOURS PRN, Starting on Thu11/08/24 at 0751, Until Thu11/10/24 at 1604, Spasm, Routine, Previous Med: methocarbamoL [...] instructions), Routine 2003 (Given - Provider: Kamille Dan, MARICARMEN)2350 (Given - Provider: Kamille Dan RN) nitroglycerin (NITROSTAT) tablet 0.4 mg 0.4 mg, Sublingual, EVERY 5 MINUTES PRN, Starting on Thu11/08/24 at 0750, Until Thu11/10/24 at 1604, Chest Pain, Routine, Previous Med: [...] at 0624, Until Thu11/08/24 at 0625, Megan Armendariz: cabinet override 0625 (Given - Provider: Megan [...] documented as of this encounter Care Teams [employer] [place] Relationship Specialty Start Date End Date Delta Wade MD [address] [address] PCP - General Family Practice 03/25/24 documented as of this encounter
--- OUTSIDE RECORDS SUMMARY | 2024-11-11 19:54 | XMS_ITS | Encounter Summary ---
Author Organization [facility] Address [address] [place] [address] Care Team Providers Care Registered Radiation Therapist Name Role Phone Delta Wade MD Primary Care Provider Reason for Visit * Reason Comments Shortness of Breath Patient reports she has COPD and has been having a COPD exacerbation for approx 1hr. Reports this started after a breathing treatment. * Auth/Cert (Routine) Specialty Diagnoses / Procedures Referred By Marcelle smith Referred To Contact Emergency Medicine [facility] Emergency Department [address] [place] [phone] Phone: tel: fax: Referral ID Status Reason Start Date Expiration Date Visits Re quested Visits Authorized [id number] 1 1 Encounter Details Date Type Department Care Team ([facility] st Contact Info) Description 11/11/2024 7:54 PM CDT - 11/12/2024 12:59 AM CDT Emergency [facility] Emergency Department [address] [place] [phone] Aki Booth DO [address] [place] [address] Skin abrasion (Primary Dx); Dyspnea, unspecified type Discharge Disposition: Home or Self Care Social [...] How often do you attend chur or gnosticist services? More than 4 times per year 06/13/2019 Do you belong to any clubs o r organizations such as anabaptist groups, unions, fraternal or athletic groups, or [...] worry about transportation for future doctor visits, diamond picker medication, etc.? No 2024 Housing Stability [...] who hurts you emotionally and/or physically? 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 Gender Identity Not on file Sexual Orientation Not on file documented as of this encounter Last Filed Vital Signs Vital Sign Reading Time Taken Comments Blood Pressure 123/61 11/11/2024 11:00 PM CDT Pulse 85 11/11/2024 11:00 PM CDT Temperature 36.8 C (98.2 F) 11/11/2024 7:52 PM CDT Respiratory Rate 24 11/11/2024 11:00 PM CDT Oxygen Saturation 96% 11/11/2024 11:00 PM CDT Inhaled Oxygen Concentration - - Weight - - Height - - Body Mass Index - - documented in this encounter Discharge Instructions * Discharge Instructions* Aki Booth, - 11/12/2024 12:32 AM CDT Things to remember after leaving the Emergency Department Le Diaz, at this time there is no evidence your symptoms represent a life threatening problem but illness and symptoms can size changer time and may need to be rechecked. This is NOT the same as nothing being wrong, it means we did not find a life threatening cause of your symptoms. The discharge plan is: 1 - RETURN to the emergency department immediately - If you develop ANY new or worsening symptoms, or your symptoms fail to improve as expected or any concern 2 - [facility] frequently uses an outside radiology group to read CT scans and other imaging tests, and most xrays are read by me not a radiologist, these tests are ALL reviewed by [facility] radiologist the Next day, If you had any imaging studies and there is a change in the interpretation, [facility] will callyou and notify you. Wash all skin sores and abrasions with soap and water daily and apply antibiotic ointment until healed. You can apply a dressing over them. Use your inhalers as needed and as directed. Follow-up with your doctor early next week for recheck of your symptoms. KNOW YOUR DIAGNOSIS Le, you have also been given additional sheets of paper explaining your diagnosis, prescriptions, home care instructions and any warning signs. By signing this discharge form, or having your responsible green party sign, you agree that you have received this information and are responsible for readingit. Please ask questions and ask the nurse to go over anything you don???t understand before you leave. You are responsible for making follow up appointments if recommended. Concerns or grievances: You and your family have a right to voice any concerns regarding the care you have received(such as Cts, x-rays, ultrasounds, MRIs, labs taking too long or other tests) and tohave those concerns reviewed and when possible resolved. If you or someone on your behalf voices a concern, your care and access to emergency will not be compromised. You are encouraged to contact any present staff, the automotive sales manager senior oracle soa developer of the department or patient relations who may be reached at [phone] or in writing at the address -[facility], [address] [place] [phone] Additional information If after having negative xrays for fracture, you are still hurting 7-10 days later, then you need to have the area rechecked PHARMACIES The longest [facility] pharmacy in [place] for prescriptions is : [phone] [facility] ([facility] ([phone]) The [facility] outpatient pharmacy is open M-F until 9 pm and until 4 pm on weekends PHONE NUMBERS If you do not have a primary doctor for follow you may call: [facility] Physician Referral at [facility] . [facility] If you smoke - consider quitting due to known bad effects of smoking on your health Thank you for coming to [facility] emergency room for your healthcare needs! Thank you for giving us the opportunity to care for you today. I hope that you feel better soon. Ifat any point you are becoming more ill, please call your doctor or return here. You are always welcome back. If you have any questions about this visit, concerns about your symptoms, questions about your medications or other concerns, call [phone] Aki Booth D.O. documented in this encounter Medications at Time [...] 1 Each 4 naloxone (NARCAN) 4 mg/spray [place], Non-Aerosol EMERGENCY USE ONLY: Administer 1 spray (4 mg) in one nostril one time. May repeat in alternating nostrils every 2-3 min until responsive or EMS arrives. 2 Each 3 3 blood sugar diagnostic StripIndications: Type 2 diabetes mellitus without complication, without long-term current use of insulin (CMS/[facility]) Use to test blood [...] 5 days. 10 Tablet 5 11/17/19 25 documented as of this encounter Procedure Notes * Jonny Ferreira CNA - 11/11/2024 9:56 PM CDT VASCULAR ACCESS TEAM Peripheral IV insertion with lab collection PATIENT NAME: Le Diaz DATE OF : 1965 CSN: [id number] DATE: 11/11/2024 Room: [facility] Admit Date: 11/11/2024 Hospital day: LOS: 0 days Allegries: Allergies Allergen Reactions Ketorolac Tromethamine Hives Prochlorperazine Hives and Seizure Propoxyphene Nausea and Vomiting Tramadol Hives Codeine Itching Propoxyphene N-Acetaminophen Nausea and Vomiting Spoke to primary nurse, access obtained, ultrasound not needed Jonny Ferreira CNA * Jonny Ferreira CNA - 11/11/2024 9:49 PM CDT VASCULAR ACCESS TEAM Peripheral IV insertion with lab collection PATIENT NAME: Le Diaz DATE OF : 1965 CSN: [id number] DATE: 11/11/2024 Room: [facility] Admit Date: 11/11/2024 Hospital day: LOS: 0 days Allegries: Allergies [...] successfully placed using ultrasound guidance in the LEFT, LOWER Arm Secure port adhesive used Yes 1 attempts 20minutes required to complete procedure Labs collected YES Blood Cultures collected No Positive blood return noted Neutral pressure cap applied Catheter Flushed with 5ml of Normal Saline Transparent dressing applied with date, time and initials of cowoker inserting. LDA documentation is contained in EMR flowsheet Patient tolerated well. Jonyn Ferreira CNA documented in this encounter ED Notes * Meir Vences RN - 11/11/2024 8:49 PM CDT Pt arrived from triage, pt c/o SOB onset an hour prior to arrival. Pt tried her normal rescue inhalers which worked for about a few minutes but stopped working. Pt states she's having a COPD exasperation, pt states she has them quite frequently. Pt states while she was trying to set up her last breathing treatment, she tripped and fell landing on her knees and re-opened her wounds on her knee, ptalso c/o of R wrist pain as well. Pt is AO at this time. * Nadine Franco - 11/11/2024 7:53 PM CDT Triage Protocol EKG [facility] EKG obtained in triage and reviewed by: Dr. Prieto at Time: 1950 Patient will: Remain in the waiting room under the triage protocol and will be roomed per usual triage process. Primary triage nurse Kenyon notified. * Rico Bray NP - 11/11/2024 7:42 PM CDT There were no vitals filed for this visit. Patient presents to the emergency department with a chief complaint of shortness of breath that started 2 hours prior to arrival. Patient states that she has a history of COPD and was recently admitted for COPD exacerbation. Patient denies fever at this time. Exam: Constitutional: Alert and oriented with no apparent distress. Respiratory: Pt noted to have respiratory distress at triage Neuro: Alert and oriented X3. Psych: Cooperative. Normal mood and affect. Triage nurse noted of pts status Pain 0/10 A medical screening exam was initiated in [...] stay. I advised patient to inform front desk coordinator nurse of any change in symptoms. The patient's evaluation and anticipated ongoing care plan was discussed in detail with them to make sure theyare aware of what to expect during their stay. * Aki Booth DO - 11/11/2024 7:28 PM CDT HISTORY OF PRESENT ILLNESS Patient presents to the ED with a COPD exacerbation that began today. The patient reports using their rescue inhaler and nebulizer ('breathing machine') three times without adequate relief. Today, while experiencing respiratory distress described as 'gasping, ' the patient fell forward while attempting to quickly reach their oxygen. The patient landed on their front, sustaining injuries to the anterior chest, wrists (primarily right wrist), and bilateral knees. The patient reports some chest tightness and continued shortness of breath. No loss of consciousness was reported during the fall. Constitutional: No fever HEENT: No headache, no earache, no sore throat Respiratory: Shortness of breath, no cough Cardiovascular: Mild chest tightness from the difficulty breathing Gastrointestinal: No abdominal pain, no vomiting, no diarrhea Musculoskeletal: Pain in right wrist, bilateral knee pain, leg pain Skin: Re-opened wounds on bilateral knees PAST MEDICAL HISTORY REVIEWED MEDICAL: Patient has a past medical history of Anxiety, Arthritis, Arthropathy, unspecified, site unspecified, Atrial flutter ([facility]), Bipolar affective disorder ([facility]), Breast cancer ([facility]) (2001), Breast mass (08/22/2010), Cervical neck pain with evidence of disc disease, Chronic hepatic failure ([facility]), Congenital absence of uterus, Congenital absence of vagina, Congenital anomaly, Congestive heart failure ([facility]), Coronary artery disease, Deep vein thrombosis (DVT) ([facility]) (2023), Depression (08/22/2010), Diabetes mellitus ([facility]) (2023), Difficult intravenous access, Dyspnea (08/15/2024), Dyspnea on exertion, Emphysema of lung ([facility]), GERD (gastroesophageal reflux disease), H/O heart artery stent, H/O mastectomy, right, 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), Hereditary hemochromatosis, abnormal cervical Pap smear, Hyperlipidemia, Ischemic cardiomyopathy, Lower extremity edema, IA (myocardial infarction) ([facility]) (2015), Neuropathy, NSTEMI (non-ST elevated myocardial infarction) ([facility]) (06/06/2023), NSTEMI (non-ST elevated myocardial infarction) ([facility]), Paroxysmal A-fib ([facility]), Paroxysmal atrial tachycardia, Pneumonia due to COVID-19 virus, Polycythemia, Primary hereditary hemochromatosis (12/13/2010), Unspecified essential hypertension, and Vaginal cancer ([facility]) (2019). SURGICAL: Patient has [...] n-acetaminophen PHYSICAL EXAM INITIAL VS BP: (!) 126/100 (11/11/241951), Heart Rate: 92 bpm (11/11/241951), Resp: 24 (11/11/241951), Pulse: 92 (11/11/241951), Temp: 98.2 ??F (36.8 ??C) (11/11/241951), Temp src: Oral (11/11/241951), SpO2: 95 % (11/11/241951), Height: (not recorded), Weight: (not recorded), BMI (Calculated): (not recorded) No LMP recorded. 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 Physical Exam Vitals and nursing note reviewed. Constitutional: General: She is not in acute distress. Appearance: She is not diaphoretic. HENT: Head: Normocephalic. Right Ear: External ear normal. Left Ear: External ear normal. Eyes: General: Right eye: No discharge. Left eye: No discharge. Cardiovascular: Pulses: Normal pulses. Pulmonary: Effort: Pulmonary effort is normal. No respiratory distress. Comments: Coarse lung sounds throughout Abdominal: General: There is no distension. Palpations: Abdomen is soft. Comments: Abdominal exam includes GI system exam as noted Musculoskeletal: General: Normal range of motion. Cervical back: Normal range of motion and neck supple. Comments: No pain with palpation of C-spine T-spine L-spine chest wall or abdomen. No pain with palpation of right snuffbox but diffuse pain of right wrist. No pain with palpation of the right upper extremity no pain with palpation of the left upper extremity. There is diffuse pain with palpation of bilateral lower extremities including femur and tib-fib with abrasions. There is no evidence of bony step-off or deformity. There is equal and intact distal sensation in upper and lower extremities. There is equal and intact distal pulses in upper and lower extremities. Skin: General: Skin is warm. Neurological: General: No focal deficit present. Mental Status: She is oriented to person, place, and time. Psychiatric: Mood and Affect: Mood normal. DIAGNOSTICS LAB: CBC WITH DIFFERENTIAL - Abnormal Result Value WBC 9.0 NRBCS 3 (*) RBC 3.74 (*) HEMOGLOBIN 11.1 (*) HEMATOCRIT 35.8 (*) MCV 95.7 MCH 29.7 MCHC 31.0 PLATELETS 203 MPV 10.8 RDW 18.9 (*) RDW-STDEV 66.3 (*) NEUTROPHILS 60 LYMPHOCYTES 26 MONOCYTES 11 (*) EOSINOPHILS 0 BASOPHILS 0 IMMATURE GRANULOCYTES 3 (*) NEUTROPHIL ABSOLUTE 5.45 LYMPHOCYTE ABSOLUTE 2.30 MONOCYTE ABSOLUTE 0.98 (*) EOSINOPHIL ABSOLUTE 0.03 BASOPHILS ABSOLUTE 0.02 IMMATURE GRANULOCYTES ABSOLUTE 0.24 (*) SMEAR REVIEWED: NA - Not Applicable COMPREHENSIVE METABOLIC PANEL - Abnormal SODIUM 140 POTASSIUM 3.6 CHLORIDE 101 CO2 25 CALCIUM 9.4 BUN 32 (*) CREATININE 0.69 GLUCOSE 296 (*) TOTAL PROTEIN 6.1 (*) ALBUMIN 3.5 BILIRUBIN TOTAL 0.3 ALKALINE PHOSPHATASE 115 (*) AST 25 ALT 40 (*) GFR >60 ANION GAP 14 BLOOD GAS VENOUS - Abnormal PH BLOOD POC 7.43 PCO2 POC 51 (*) PO2 POC 47 (*) HCO3 (CALC) POC 34 (*) HEMOGLOBIN POC 11.4 (*) BASE EXCESS POC 10 (*) O2 SATURATION POC 76 (*) SODIUM POC 137 POTASSIUM POC 4.2 HEMATOCRIT POC 34 (*) PH TEMP CORRECT 7.43 PCO2 TEMP CORRECT 51 (*) PO2 TEMP CORRECT 47 (*) SPECIMEN SOURCE, GASES POC Venous CALCIUM IONIZED POC 5.4 (*) TCO2 (CALC) POC 36 (*) [facility] POC No Charge INFLUENZA A/B, RSV AND COVID-19 PCR PANEL - Normal COVID-19 PCR Not Detected Influenza A by PCR Not Detected Influenza B by PCR Not Detected RSV by PCR Not Detected INFLUENZA A/B, RSV AND COVID-19 PCR PANEL BLOOD GAS VENOUS RADIOLOGY: No orders to display EKG: PROCEDURES Procedures MEDICAL DECISION MAKING AND PLAN OF CARE Medical Decision Making Amount and/or Complexity of Data Reviewed Labs: ordered. Radiology: ordered. Risk Prescription drug management. Clinical Scoring & Consults Medications Administered During the ED Stay from 11/11/2024 1929 to 11/12/2024 0049 Date/Time Order Dose Route Action 11/11/20242036 CDT ipratropium-albuteroL (DUONEB) 0.5 mg-3 mg(2.5 mg base)/3 mL inhalation solution 3 mL 3 mL Inhalation Given 11/12/2024 0046 CDT morphine 4 mg/mL injection 4 mg 4 mg IV Given 11/11/20242332 CDT morphine 4 mg/mL injection 4 mg 4 mg IV Given 11/11/20242154 CDT morphine 4 mg/mL injection 4 mg 4 mg IV Given . New Prescriptions for this Encounter Chart Documentation: Protocol orders were likely utilized [...] sochx, recent phone calls, epic, er visits.) The patient is on warfarin, she is on home oxygen She has a history of obesity, left lung mass, diabetes, COPD, CHF she does have frequent ER visits. Initial vitals: Tachypneic otherwise stable, review of nursing notes at this point - yes, 8:34 PM Life threatening illnesses/threat to bodily function possibilities as well as more common possible etiologies were considered but not limited to such as: Most obvious/occult/omnious: By virtue of history and physical, some of these diagnoses can be excluded. COPD exacerbation, pneumonia, CHF, viralillness, fracture, abrasion, out-of-date tetanus status HPI summary: Ms. Diaz is a pleasant 59 y.o. female who presents to the emergency department with shortness of breath and fall ED course/workup significant for/plan: Data: EKG: First ER EKG my interpretation, interpretation is severely limited by artifact, there is a normal sinus rhythm rate 96 normal NV normal QRS increased QTc at 510, there is no evidence of ischemiathere is no significant change in morphology when compared to October 2024 CBC shows chronic anemia otherwise unremarkable CMP is unremarkable COVID influenza RSV is negative Venous blood gas consistent with without retention of CO2 or change in pH X-ray of femur, wrist, tibia-fibula, chest x-ray:12:47 AM First ED xray my prelim interpretation as ED physician: I personally reviewed the x-ray(s). I do not appreciate acute abnormality or life-threatening abnormality. This xray will be overread by radiology at a later date. ---- ED Course: (Based upon current information at this time) Patient's tetanus is up-to-date. Patient was given 1 breathing treatment here. Lung sounds have increased. She has unlabored breathing. She would like to be admitted for 1 night. I discussed case with Dr. Baig who feels she does not require admission secondary to nonlabored breathing, normal oxygen requirement, unremarkable chest x-ray. I discussed this with the patient, she reports that she has prednisone at home. We discussed how to use her inhalers. We discussed how to care for her wounds. We discussed what to watch and return for. LAST VS BP: 123/61 (11/11/242299), Heart Rate: 86 bpm (11/11/242299), Resp: 24 (11/11/242299), Pulse: 85(11/11/242299), Temp: 98.2 ??F (36.8 ??C) (11/11/241951), Temp src: Oral (11/11/241951), SpO2: 96 % (11/11/242299) CLINICAL IMPRESSION Diagnoses Diagnosis Comment Added By Time Added Skin abrasion [T14.8XXA] Aki Booth, DO 11/12/2024 12:31 AM Dyspnea, unspecified type [R06.00] Aki Booth DO 11/12/2024 12:31 AM DISPOSITION, EDUCATION AND MEDICATION RECONCILIATION Medications reconciled. See after visit summary for patient education on discharged patients. ED Disposition ED Disposition Discharge Condition Stable User Aki Booth DO Date/Time Sat Nov 12, 2024 12:31 AM Comment -- ATTESTATION STATEMENTS Diagnoses Diagnosis Comment Added By Time Added Skin abrasion [T14.8XXA] Aki Booth DO 11/12/2024 12:31 AM Dyspnea, unspecified type [R06.00] Aki Booth DO 11/12/2024 12:31 AM documented in this encounter Miscellaneous Notes * ED Bed Hold Comment Note - Gregorio Narvaez RN - 11/11/2024 7:54 PM CDT Bed: 32 Expected date: 11/11/24 Expected time: 7:35 PM Means of arrival: Comments: triage documented in this encounter Plan of Treatment Upcoming Encounters Date Type Department Care Team (Late st Contact Info) Description 01/12/2025 1:40 PM CDT Office Visit [facility] [address] [facility] [address] [place] [phone] Tresa Stockton, [facility] [address] [facility] [address] [place] [address] 04/19/2025 10:30 AM INTERNAL AFFAIRS INVESTIGATOR Office Visit [facility] Endocrinology [facility] [address] [phone] James Lee MD [address] [place] [address] Gricel Mcgovern PA [address] [place] [phone] Scheduled Orders Name Type Priority Associated Diagnoses Orde r Schedule BLOOD GAS VENOUS Lab Routine ONE TIME COLLECT NOW for 1 Occurrences starting 11/11/2024 until 11/11/2024 documented as of this encounter Goals Goal Patient Goal Type Associated Problems Recent Progress Patient-Stated? Author Heart Failure Goal Care Plan Heart Failure Problem No Latonya Anguiano LPN documented as of this encounter Procedures Procedure Name Priority Date/Time Associated Diagnosis Comments BLOOD GAS VENOUS Stat 11/11/2024 11:1 6 PM CDT INFLUENZA A/B, RSV AND COVID-19 PCR PANEL Stat 11/11/2024 9:55 PM CDT INFLUENZA A/B, RSV AND COVID-19 PCR PANEL Stat 11/11/2024 9:55 PM CDT CBC WITH DIFFERENTIAL Stat 11/11/2024 9:47 PM CDT COMPREHENSIVE METABOLIC PANEL Stat 11/11/2024 9:47 PM CDT XR FEMUR 2 VW BILAT Stat 11/11/2024 9 :24 PM CDT XR WRIST 3+ VW RIGHT Stat 11/11/2024 9:24 PM CDT XR TIBIA AND FIBULA 2 VW BILAT Stat 11/11/2024 9:24 PM CDT XR CHEST PA OR AP 1 VW Stat 8:26 PM CDT RESPIRATORY THERAPY COMMUNICATION Stat 11/11/2024 8:26 PM CDT EKG 12-LEAD Stat 11/11/2024 7:48 PM CDT documented in this encounter Results * (ABNORMAL) BLOOD GAS VENOUS (11/11/2024 11:16 PM CDT) [facility] PH BLOOD POC 7.43 7.32 - 7.43 11/11/2024 11:16 PM [facility] PCO2 POC 51(H) 38 - 50 mm Hg 11/11/2024 11:16 PM [facility] PO2 POC 47(H) 25 - 40 mm Hg 11/11/2024 11:16 PM [facility] HCO3 (CALC) POC 34(H) 22 - 29 mmol/L 11/11/2024 11:16 PM [facility] HEMOGLOBIN POC 11.4(L) 12.0 - 18.0 g/dL 11/11/2024 11:16 PM [facility] BASE EXCESS POC 10(H) -2 - 3 mmol/L 11/11/2024 11:16 PM [facility] O2 SATURATION POC 76(H) 40 - 70 % 11/11/2024 11:16 PM [facility] SODIUM POC 137 135 - 145 mmol/L 11/11/2024 11:16 PM [facility] POTASSIUM POC 4.2 3.5 - 4.9 mmol/L 11/11/2024 11:16 PM [facility] HEMATOCRIT POC 34(L) 38 - 51 % 11/11/2024 11:16 PM [facility] PH TEMP CORRECT 7.43 7.32 - 7.43 11/11/2024 11:16 PM [facility] PCO2 TEMP CORRECT 51(H) 38 - 50 mm Hg 11/11/2024 11:16 PM [facility] PO2 TEMP CORRECT 47(H) 25 - 40 mm Hg 11/11/2024 11:16 PM [facility] SPECIMEN SOURCE, GASES POC Venous 11/11/2024 11:16 PM [facility] CALCIUM IONIZED POC 5.4(H) 4.8 - 5.2 mg/dL 11/11/2024 11:16 PM [facility] TCO2 (CALC) POC 36(H) 22 - 26 mmol/L 11/11/2024 11:16 PM CDT [facility] SITE POC No Charge 11/11/2024 11:16 PM CDT [facility] Blood, venous 11/11/2024 11: 16 PM CDT 11/11/2024 11:17 PM CDT Aki Booth DO ABG ORDERABLES Final R esult Performing Organization Address [facility]/ZIP Co de Phone Number [facility] CLIA # [id number] [address] [address] [place] [address] * INFLUENZA A/B, RSV AND COVID-19 PCR PANEL (11/11/2024 9:55 PM CDT) COVID-19 PCR NOT DETECTED Not Detected 11/12/19 11:06 PM CDT [facility] Influenza A by PCR NOT DETECTED Not Detected 11/11/2024 11:06 PM CDT [facility] Influenza B by PCR NOT DETECTED Not Detected 11/11/2024 11:06 PM CDT [facility] RSV by PCR NOT DETECTED Not Detected 11/11/2024 11:06 PM CDT [facility] Upper Respiratory ENTIRE NASOPHARYNX / Unknown Collection / Unknown 11/11/2024 9:55 PM CDT 11/11/2024 10:10 PM CDT Narrative [facility] - 11/11/2024 11:06 PM CDT This test has been authorized by the FDA under an Emergency Use Authorization for use by authorized laboratories. This test has been validated in accordance with the FDA's guidance regarding Coronavirus Disease-2019 testing. Optimum specimen types and timing for peak viral levels during infection have not been determined. A negative RT-PCR result does not rule out infection with the 2019-Novel Coronavirus. Aki Booth DO MICROBIOLOGY - GENERAL ORDERABLES Final Result Performing Organization Address City/[facility]/ZIP Co de Phone Number [facility] CLIA # [id number] [address] [address] [place] [address] * (ABNORMAL) COMPREHENSIVE METABOLIC PANEL (11/11/2024 9:47 PM CDT) [facility] SODIUM 140 136 - 145 mmol/L 11/11/2024 10:34 PM [facility] POTASSIUM 3.6 3.5 - 5.1 mmol/L 11/11/2024 10:34 PM [facility] CHLORIDE 101 98 - 107 mmol/L 11/11/2024 10:34 PM [facility] CO2 25 22 - 29 mmol/L 11/11/2024 10:34 PM [facility] CALCIUM 9.4 8.6 - 10.0 mg/dL 11/11/2024 10:34 PM [facility] BUN 32(H) 6 - 20 mg/dL 11/11/2024 10:34 PM [facility] CREATININE 0.69 0.51 - 0.95 mg/dL 11/11/2024 10:34 PM [facility] GLUCOSE 296(H) 74 - 99 mg/dL 11/11/2024 10:34 PM [facility] TOTAL PROTEIN 6.1(L) 6.4 - 8.3 g/dL 11/11/2024 10:34 PM [facility] ALBUMIN 3.5 3.5 - 5.2 g/dL 11/11/2024 10:34 PM [facility] BILIRUBIN TOTAL 0.3 0.0 - 1.0 mg/dL 11/11/2024 10:34 PM [facility] ALKALINE PHOSPHATASE 115(H) 35 - 104 U/L 11/11/2024 10:34 PM [facility] AST 25 10 - 35 U/L 11/11/2024 10:34 PM [facility] ALT 40(H) <=35 U/L 11/11/2024 10:34 PM [facility] GFR >60 >=60 mL/min/1.7 3 sq meter 11/11/2024 10:34 PM CDT [facility] Comment:eGFR calculated with 2020 CKD-EPI equation. Vegetarian diet, extremely high or low muscle mass, and may affect results. Cystatin C with Glomerular Filtration Rate is a suitable alternative for these patients. ANION GAP 14 9 - 20 mmol/L 11/11/2024 10:34 PM CDT [facility] Blood Venipuncture / Unknown 11/11/2024 9:47 PM CDT 11/11/2024 9:59 PM CDT Rico Bray NP CHEMISTRY ORDERABLES Final Res ult [facility] CLIA # [id number] [address] [place] [id number] * (ABNORMAL) CBC WITH DIFFERENTIAL (11/11/2024 9:47 PM CDT) WBC 9.0 4.8 - 10.8 K/uL 11/11/2024 10:07 PM CDT [facility] NRBCS 3(H) <1 % 11/11/2024 10:07 PM CDT [facility] RBC 3.74(L) 4.20 - 5.40 M/uL 11/11/2024 10:07 PM CDT [facility] HEMOGLOBIN 11.1(L) 12.0 - 16.0 g/dL 11/11/2024 10:07 PM CDT [facility] HEMATOCRIT 35.8(L) 36.0 - 46.0 % 11/11/2024 10:07 PM CDT [facility] MCV 95.7 84.0 - 103.0 fL 11/11/2024 10:07 PM CDT [facility] MCH 29.7 27.0 - 34.0 pg 11/11/2024 10:07 PM CDT [facility] MCHC 31.0 30.0 - 35.0 g/dL 11/11/2024 10:07 PM [facility] [employer] [facility] PLATELETS 203 140 - 440 K/uL 11/11/2024 10:07 PM [facility] MPV 10.8 8.9 - 12.8 fL 11/11/2024 10:07 PM [facility] RDW 18.9(H) 11.0 - 14.5 % 11/11/2024 10:07 PM [facility] RDW-STDEV 66.3(H) 37.0 - 54.0 fL 11/11/2024 10:07 PM [facility] NEUTROPHILS 60 42 - 75 % 11/11/2024 10:07 PM [facility] LYMPHOCYTES 26 24 - 44 % 11/11/2024 10:07 PM [facility] MONOCYTES 11(H) 2 - 10 % 11/11/2024 10:07 PM [facility] EOSINOPHILS 0 0 - 7 % 11/11/2024 10:07 PM [facility] BASOPHILS 0 0 - 1 % 11/11/2024 10:07 PM [facility] IMMATURE GRANULOCYTES 3(H) 0 - 2 % 11/11/2024 10:07 PM [facility] NEUTROPHIL ABSOLUTE 5.45 2.00 - 8.00 K/uL 11/11/2024 10:07 PM [facility] LYMPHOCYTE ABSOLUTE 2.30 1.20 - 4.00 K/uL 11/11/2024 10:07 PM [facility] MONOCYTE ABSOLUTE 0.98(H) 0.10 - 0.60 K/uL 11/11/2024 10:07 PM [facility] EOSINOPHIL ABSOLUTE 0.03 0.00 - 0.70 K/uL 11/11/2024 10:07 PM [facility] BASOPHILS ABSOLUTE 0.02 0.00 - 0.20 K/uL 11/11/2024 10:07 PM [facility] IMMATURE GRANULOCYTES ABSOLUTE 0.24(H) 0.00 - 0.10 K/uL 11/11/2024 10:07 PM CDT [facility] SMEAR REVIEWED: NA - Not Applicable 11/11/2024 10:07 PM CDT [facility] Blood Venipuncture / Unknown 11/11/2024 9:47 PM CDT 11/11/2024 9:58 PM CDT Rico Bray [employer] HEMATOLOGY ORDERABLES Final Re sult [facility] CLIA # [id number] [address] [address] [place] [address] * XR FEMUR 2 VW BILAT (11/11/2024 9:24 PM CDT) Anatomical Region Laterality Modality Lower Extremity Computed Radiogr aphy 11/11/2024 9:24 PM CDT Impressions 11/12/2024 6:36 AM CDT IMPRESSION: No identified fracture or dislocation. Narrative 11/12/2024 6:36 AM CDT EXAM: XR FEMUR 2 VW BILAT DIAGNOSIS/REASON FOR EXAM: Injury. DATE AND TIME: 11/11/2024, 9:24 PM. COMPARISON: None. TECHNIQUE: AP and lateral views of the bilateral femurs. FINDINGS: No fracture or dislocation is identified. No osteoblastic or osteolytic lesions are seen. There are no radiodense foreign bodies. Procedure Note Eduardo Cadena MD - 11/12/2024 EXAM: XR FEMUR 2 VW BILAT DIAGNOSIS/REASON FOR EXAM: Injury. DATE AND TIME: 11/11/2024, 9:24 PM. COMPARISON: None. TECHNIQUE: AP and lateral views of the bilateral femurs. FINDINGS: No fracture or dislocation is identified. No osteoblastic or osteolytic lesions are seen. There are no radiodense foreign bodies. IMPRESSION: No identified fracture or dislocation. us Aki Booth DO DIAGNOSTIC IMAGING ORDE NARCISO Final Result * XR WRIST 3+ VW RIGHT (11/11/2024 9:24 PM CDT) Anatomical Region Laterality Modality Wrist / Hand Computed Radiogr aphy 11/11/2024 9:24 PM CDT Impressions 11/12/2024 6:36 AM CDT IMPRESSION: 1. No identified fracture or dislocation. 2. Mild degenerative changes of the right first carpometacarpal joint. Narrative 11/12/2024 6:36 AM CDT EXAM: XR WRIST 3+ VW RIGHT DIAGNOSIS/REASON FOR EXAM: Trauma. DATE AND TIME: 11/11/2024, 9:24 PM. COMPARISON: None. TECHNIQUE: AP, oblique, and lateral views of the right wrist. FINDINGS: No fracture or dislocation is identified. No osteoblastic or osteolytic lesions are seen. There are mild degenerative changes of the right first carpometacarpal joint. Procedure Note Eduardo Cadena MD - 11/12/2024 EXAM: XR WRIST 3+ VW RIGHT DIAGNOSIS/REASON FOR EXAM: Trauma. DATE AND TIME: 11/11/2024, 9:24 PM. COMPARISON: None. TECHNIQUE: AP, oblique, and lateral views of the right wrist. FINDINGS: No fracture or dislocation is identified. No osteoblastic or osteolytic lesions are seen. There are mild degenerative changes of the right first carpometacarpal joint. IMPRESSION: 1. No identified fracture or dislocation. 2. Mild degenerative changes of the right first carpometacarpal joint. Aki Booth DO DIAGNOSTIC IMAGING [place] STUART Final Result * XR TIBIA AND FIBULA 2 VW BILAT (11/11/2024 9:24 PM CDT) Anatomical Region Laterality Modality Lower Extremity Computed Radiogr aphy 11/11/2024 9:24 PM CDT Impressions 11/12/2024 6:19 AM CDT IMPRESSION: No acute osseous abnormalities of the right tibia and fibula. Narrative 11/12/2024 6:19 AM CDT EXAM: XR TIBIA AND FIBULA 2 VW BILAT DIAGNOSIS/REASON FOR EXAM: Injury. DATE AND TIME: 11/11/2024, 9:24 PM. COMPARISON: None. TECHNIQUE: AP and lateral views of the right tibia and fibula. FINDINGS: No fracture or dislocation is identified. No osteoblastic or osteolytic lesions are seen. There are no radiodense foreign bodies. Procedure Note Eduardo Cadena MD - 11/12/2024 EXAM: XR TIBIA AND FIBULA 2 VW BILAT DIAGNOSIS/REASON FOR EXAM: Injury. DATE AND TIME: 11/11/2024, 9:24 PM. COMPARISON: None. TECHNIQUE: AP and lateral views of the right tibia and fibula. FINDINGS: No fracture or dislocation is identified. No osteoblastic or osteolytic lesions are seen. There are no radiodense foreign bodies. IMPRESSION: No acute osseous abnormalities of the right tibia and fibula. Aki Booth DO DIAGNOSTIC IMAGING ORDE NARCISO Final Result * XR CHEST PA OR AP 1 VW (11/11/2024 8:26 PM CDT) Anatomical Region Laterality Modality Chest Computed Radiogr aphy 11/11/2024 8:26 PM CDT Impressions 11/12/2024 6:15 AM CDT IMPRESSION: 1. Findings suggestive of congestive heart failure or fluid overload. 2. Cardiomegaly. Narrative 11/12/2024 6:15 AM CDT EXAM: XR CHEST PA OR AP 1 VW DIAGNOSIS/REASON FOR EXAM: Shortness of Breath. DATE AND TIME: 11/11/2024, 8:26 PM. COMPARISON: Chest x-ray obtained on 11/08/2024. TECHNIQUE: Upright AP view of the chest. FINDINGS: The cardiac silhouette is enlarged. The pulmonary vascular markings are prominent bilaterally. No focal consolidation, pleural effusion, or pneumothorax is identified. There are moderate degenerative changes of the right glenohumeral joint. ACDF hardware is located in the lower cervical spine. An electronic device overlies the left chest. Procedure Note Eduardo Cadena MD - 11/12/2024 EXAM: XR CHEST PA OR AP 1 VW DIAGNOSIS/REASON FOR EXAM: Shortness of Breath. DATE AND TIME: 11/11/2024, 8:26 PM. COMPARISON: Chest x-ray obtained on 11/08/2024. TECHNIQUE: Upright AP view of the chest. FINDINGS: The cardiac silhouette is enlarged. The pulmonary vascular markings are prominent bilaterally. No focal consolidation, pleural effusion, or pneumothorax is identified. There are moderate degenerative changes of the right glenohumeral joint. ACDF hardware is located in the lower cervical spine. An electronic device overlies the left chest. IMPRESSION: 1. Findings suggestive of congestive heart failure or fluid overload. 2. Cardiomegaly. 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 : 1965 Requested By: Order Number: [id number] Reading : Echo Tapia Measurements Intervals Hurst Rate: 96 P: 30 NV: 158 QRS: 33 QRSD: 76 T: 25 QT: 404 QTc: 510 Interpretive Statements Sinus rhythm with premature atrial complexes Possible Inferior infarct, age undetermined Prolonged QT Abnormal ECG Electronically Signed On 11-12-2024 8:50:40 CDT by Echo Tapia Procedure Note Provider, Historical - 11/12/[address] [address] Test Date: 2024-11-11 Pat Name: LE DIAZ Department: 11 Room: Gender: Female 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: [email or web address] : 1965 Requested By: Order Number: [id number] Reading VALENTE Tapia Measurements Intervals Hurst Rate: 96 P: 30 NV: 158 QRS: 33 QRSD: 76 T: 25 QT: 404 QTc: 510 Interpretive Statements Sinus rhythm with premature atrial complexes Possible Inferior infarct, age undetermined Prolonged QT Abnormal ECG Electronically Signed On 11-12-2024 8:50:40 CDT by Echo Tapia Rico Bray NP ECG ORDERABLES Final Result INTERFACE SYSTEM Refer to clinic/hospital department documented in this encounter Visit Diagnoses Diagnosis Skin abrasion- Primary Abrasion or friction burn of other, multiple, and unspecified sites, without mention of infection Dyspnea, unspecified type documented in this encounter Administered Medications Inactive Administered Medications - up to 3 most recent administrations Medication Order MAR Action Action Date Dose Rate Site ipratropium-albuteroL (DUONEB) 0.5 mg-3 mg(2.5 mg base)/3 mL inhalation solution 3 mL 3 mL, Inhalation, ONE TIME ONLY RESPIRATORY, 1 dose, On Thu11/11/24 at 2030, Routine Given 11/11/2024 8:37 PM CDT 3 mL morphine 4 mg/mL injection 4 mg 4 mg, IV, EVERY 1 HOUR PRN, Starting on Thu11/11/24 at 2024, Until 11/12/24 at 0300, Pain, Routine Given 11/12/2024 12:46 AM CDT 4 mg Given 11/11/2024 11:33 PM CDT 4 mg Given 11/11/2024 9:55 PM CDT 4 mg documented in this encounter Active and Recently Administered Medications Times are shown in CDT. Scheduled Medication Order 11/10/2024 11/11/2024 11/12/2024 ipratropium-albuteroL (DUONEB) 0.5 mg-3 mg(2.5 mg base)/3 mL inhalation solution 3 mL (COMPLETED) 3 mL, Inhalation, ONE TIME ONLY RESPIRATORY, 1 dose, On Thu11/11/24 at 2030, Routine 2036 (Given - Provider: Mg López RCP) PRN Medication Order 11/10/2024 11/11/2024 11/12/2024 morphine 4 mg/mL injection 4 mg 4 mg, IV, EVERY 1 HOUR PRN, Starting on Thu11/11/24 at 2024, Until 11/12/24 at 0300, Pain, Routine 2154 (Given - Provider: Meir Vences RN)2333 (Given - Provider: Scooby Arellano RN) 0046 (Given - Provider: Meir Vences RN) documented in this encounter Additional Health Concerns Active Problems Noted Date Diagnosed Date Heart Failure Problem 05/12/2024 Infection Onset Date Last Indicated Resolved Time R/O COVID-19 11/11/2024 11/11/2024 11/11/2024 11:0 6 PM CDT documented as of this encounter Care Teams Registered Radiation Therapist Relationship Specialty Start Date End Date Delta Wade MD [address] [address] PCP - General Family Practice 03/25/24 documented as of this encounter
--- OUTSIDE RECORDS SUMMARY | 2024-11-12 21:40 | XMS_ITS | Encounter Summary ---
Author Organization [facility] Address [address] [place] [address] Care Team Providers Care Account Service Associate Name Role Phone Delta Wade MD Primary Care Provider [phone] Reason for Visit * Reason Comments Shortness of Breath Onset 2 hours prior to arrival Encounter Details Date Type Department Care Team (Late st Contact Info) Description 11/12/2024 9:40 PM CDT - 11/12/2024 9:42 PM CDT Emergency [facility] Emergency Department [address] [place] [address] Discharge Disposition: Left Against Medical Advice Social [...] often do you attend chur ch or adventist services? More than 4 times per year [...] worry about transportation for future doctor visits, continuous pickling line pickler medication, etc.? No 2024 Housing Stability Answer [...] on file Legal Sex Female 11:49 PM SNUFF MAKER Gender Identity Not on file Sexual Orientation Not on file documented as of this encounter Last Filed Vital Signs Vital Sign Reading Time Taken Comments Blood Pressure 159/134 11/12/2024 7:37 PM CDT Pulse 99 11/12/2024 7:37 PM CDT Temperature 36.5 C (97.7 F) 11/12/2024 7:37 PM CDT Respiratory Rate 18 11/12/2024 7:37 PM CDT Oxygen Saturation 97% 11/12/2024 7:37 PM CDT Inhaled Oxygen Concentration - - [...] 1 Each 4 naloxone (NARCAN) 4 mg/spray [place], Non-Aerosol EMERGENCY USE ONLY: Administer 1 spray [...] 11/17/19 25 documented as of this encounter ED Notes * Janae Zapata RN - 11/12/2024 9:36 PM CDT Patient did approach triage desk asking when she would be roomed. This RN educated her about triageprocess and that there were no available rooms. Patient appeared to be at her baseline, with nasal cannula per home concentrator. Patient is accompanied by son and family. Patient/Guardian approached triage desk requesting to leave. Patient already seen by MARIELLA in triage.Patient/Guardian encouraged to stay for full evaluation and treatment however still wish to leave. Patient reports I'm not going to stay here if you guys are going to kill me I will be back later AMA form not signed although patient was encouraged to stay and be seen. She did notify staff she wasleaving but refused to sign any paperwork. * Rico Bray NP - 11/12/2024 7:44 PM CDT Vitals: 11/12/24 193 BP: (!) 159/134 Pulse: 99 Resp: 18 Temp: 97.7 ??F (36.5 ??C) SpO2: 97% Patient presents to the emergency department with a chief complaint of increasing respiratory distress. Patient states that she was here yesterday and then went home refusing the BiPAP. Patient states she is desperately wanting to be on the BiPAP now. Patient states no change from yesterday other than increasing shortness of breath. Exam: Constitutional: Alert and oriented with no apparent distress. Respiratory: Increased respiratory effort noted on exam. Neuro: Alert and oriented X3. Psych: Cooperative. Normal mood and affect. Pain 6/10 A medical screening exam was initiated [...] their stay. I advised patient to inform desk officer nurse of any change in symptoms. The patient's evaluation and anticipated ongoing care plan was discussed in detail with them to make sure theyare aware of what to expect during their stay. documented in this encounter Plan of Treatment Upcoming Encounters Date Type Department Care Team (Late st Contact Info) Description 01/12/2025 1:40 PM CDT Office Visit [facility] [address] [facility] [address] [place] [address] Tresa Stockton, [facility] [address] [facility] [address] [place] [phone] 04/19/2025 10:30 AM SNUFF MAKER Office Visit [facility] Endocrinology [facility] [address] [place] [address] James Lee MD [address] [place] [address] Gricel Mcgovern PA [address] [place] [address] documented as of this encounter Goals Goal Patient Goal Type Associated Problems Recent Progress Patient-Stated? Author Heart Failure Goal Care Plan Heart Failure Problem No Latonya Anguiano LPN documented as of this encounter Visit Diagnoses Not on filedocumented in this encounter Additional Health Concerns Active Problems Noted Date Diagnosed Date Heart Failure Problem 05/12/2024 documented as of this encounter Care Teams Account Service Associate Relationship Specialty Start Date End Date Delta Wade MD [address] [address] PCP - General Family Practice 03/25/24 documented as of this encounter
--- OUTSIDE RECORDS SUMMARY | 2024-11-13 10:17 | XMS_ITS | Encounter Summary ---
Author Organization [facility] Address 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 Name Role Phone Delta Wade MD Primary Care Provider [phone] Reason for Referral * Eval and Treat (Routine) - Open Specialty Diagnoses / Procedures Referred By Marcelle smith Referred To Contact Diagnoses Abnormal chest CT Procedures WA OFFICE/OUTPATIENT ESTABLISHED MOD MDM 30 MIN WA OFFICE/OUTPATIENT NEW MODERATE MDM 45 MINUTES Curly Loaiza DO [address] [place] [address] Phone: tel: fax: [facility] Pre-Registration [place] CALL TO MAKE APPOINTMENT ONLY [address] [place] [address] Phone: tel: fax: Referral ID Status Reason Start Date Expiration Date Visits Re quested Visits Authorized [id number] Open 11/16/2024 11/16/2025 1 1 Reason for Visit * Reason Comments Shortness of Breath Reports hx of COPD, pt reports she did also fall from toilet. Denies head trauma, + thinners. Fall * Auth/Cert (Routine) Specialty Diagnoses / Procedures Referred By Marcelle smith Referred To Contact Emergency Medicine [facility] Emergency Department [address] [place] [address] Phone: tel: fax: Referral ID Status Reason Start Date Expiration Date Visits Re quested Visits Authorized [id number] 1 1 Encounter Details Date Type Department Care Team (Latest Contact Info) Description 11/13/2024 10:17 AM CDT - 11/16/2024 1:34 PM CDT Hospital Encounter [facility] 6B Medical Surgical [address] [place] [address] Austin Robertson MD [address] [place] [address] Elizabeth Elizabeth MD [address] [place] [address] Curly Loaiza DO [address] [place] [address] COPD with exacerbation ([facility]) Discharge Disposition: DC to Home or Self Care w/ a planned Acute Care Hosp Readmit Social History Tobacco Use Types Packs/Day Years [...] often do you attend chur ch or restorationist services? More than 4 times per year 06/13/2019 Do you belong to any clubs o r organizations such as religion groups, unions, fraternal or athletic groups, or [...] transportation for future doctor visits, bean picker medication, etc.? 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 Gender Identity Not on file Sexual Orientation Not on file documented as of this encounter Last Filed Vital Signs Vital Sign Reading Time Taken Comments Blood Pressure 141/97 11/16/2024 11:10 AM CDT Pulse 78 11/16/2024 11:10 AM CDT Temperature 37.1 C (98.8 F) 11/16/2024 8:00 AM CDT Respiratory Rate 22 11/16/2024 11:10 AM CDT Oxygen Saturation 96% 11/16/2024 11:10 AM CDT Inhaled Oxygen Concentration - - Weight 96.2 kg (212 lb) 11/13/2024 10:05 AM CDT Height 162.6 cm (5' 4 ) 11/13/2024 10:05 AM CDT Body Mass Index 36.39 11/13/2024 10:05 AM CDT documented in this encounter Discharge Summaries * Curly Loaiza DO - 11/16/2024 10:48 AM CDT [facility] Hospitalist- Discharge Summary Le Diaz 59 y.o. female 1965 CSN: [id number] Date of Admission: 11/13/2024 Date of Discharge: 11/16/2024 LOS: 3 days Discharging Physician: Curly Loaiza DO PCP: Delta Wade MD Code Status at Discharge: Prior Dispo: home Labs and studies from this hospitalization needing follow up: Pending Labs Order Current Status BLOOD CULTURE Preliminary result BLOOD CULTURE Preliminary result BLOOD CULTURE Preliminary result BLOOD CULTURE Preliminary result Significant Diagnostic Studies: For XR: LASTXR - Results for orders placed during the hospital encounter of 11/11/24 XR TIBIA AND FIBULA 2 VW BILAT Narrative EXAM: XR TIBIA AND FIBULA 2 VW BILAT DIAGNOSIS/REASON FOR EXAM: Injury. DATE AND TIME: 11/11/2024, 9:24 PM. COMPARISON: None. TECHNIQUE: AP and lateral views of the right tibia and fibula. FINDINGS: No fracture or dislocation is identified. No osteoblastic or osteolytic lesions are seen. There are no radiodense foreign bodies. Impression : No acute osseous abnormalities of the right tibia and fibula. For Nuc. Med: LASTNM - Results for orders placed during the hospital encounter of 10/01/24 NM PHARMACOLOGICAL STRESS TEST Narrative REST-STRESS REGADENOSON RUBIDIUM-82 PET/CT MYOCARDIAL PERFUSION IMAGING [...] available for direct comparison. Howie MD Patel For MRI: LASTMR - Results for orders placed during the hospital encounter of 07/21/23 MRI BRAIN WO CONTRAST Impression : Please see below. Exam: MRI BRAIN WO CONTRAST Date/Time of Exam: 07/22/2023 5:04 AM Reason For Exam: Neuro deficit, acute, stroke suspected. Diagnosis: Left-sided weakness; Hypokalemia. Technique: MRI of the brain was performed without the administration of intravenous contrast. Findings: Motion degraded examination. Comparison 07/21/2023. No acute infarction, hemorrhage or extra-axial collection. Mild sequela of small vessel ischemic disease and diffuse parenchymal volume loss. No hydrocephalus. Basal cisterns are patent. No suspicious osseous abnormality the paranasal sinuses are predominantly clear. No mastoid effusion. The orbits are intact. IMPRESSION: No acute intracranial abnormality. Mild sequela of small vessel ischemic disease. For CT: LASTCT - Results for orders placed during the hospital encounter of 11/13/24 CTA CHEST + ABD/PEL W CONTRAST Impression : Please see below. Exam: CTA CHEST + ABD/PEL W CONTRAST Date/Time of Exam: 11/13/2024 11:44 AM Reason For Exam: Polytrauma, blunt, Fall, Lumbar pain. Diagnosis: See Reason for Exam. Technique: CTA of the chest, abdomen, and pelvis was performed following the administration of intravenous contrast. Post-processing was performed, including sagittal and coronal reformations and 3-D reconstruction. Contrast: IOPAMIDOL 61 % INTRAVENOUS SOLUTION (MULTI-DOSE BULK PACK) Given:100 mL. Comparison: October 31, 2024 October 20, 2024 Findings: CHEST: Suboptimal exam secondary to bolus timing. No thyroid nodules. No lymphadenopathy in the chest. No central pulmonary thromboembolic disease or right heart strain. Coronary artery calcification. There is no pneumothorax or pleural effusion. There is respiratory motion artifact which limits assessment of the lungs. Stable masslike consolidation in the left lower lobe measuring 36 x 18 mm in size. Central airways clear. Abdomen and pelvis: Liver is diffusely hypodense and enlarged. No gallbladder wall thickening. Nodular thickening of the left adrenal gland. No biliary or pancreatic ductal dilatation. Large ventral hernia containing a portion of the liver. No hydronephrosis. No suspicious renal lesions. Bladder mildly distended. No adnexal masses. The small and large bowel are not distended. There is no evidence of acute appendicitis. No lymphadenopathy. No ascites. Aorta nonaneurysmal. There are no destructive lytic or sclerotic bone lesions. There is stable chronic vertebral body height loss at L1. There is mild anterolisthesis at L4-L5. IMPRESSION: 1. No acute intrathoracic or intra-abdominal findings. 2. No evidence of pulmonary thromboembolic disease. 3. Hepatic steatosis and hepatomegaly. For Ultra Sound: LASTUS - @LASTIMGCAT([id number]) Procedures performed: Patient instructions: Diabetic low salt diet Follow-up with Delta Wade MD Future Appointments Date Time Provider Department Center 01/12/2025 1:40 PM [facility] 10:30 AM Gricel Mcgovern PA [facility] Patient instructed to seek medical attention if recurrence or worsening of admission concerns, chest pain, palpitations, shortness of breath, coughing blood, nausea, vomiting, diarrhea, pain, fever, chills, bleeding, bloody or black tarry stools. Discharge Condition: improved to baseline Primary Discharge Diagnosis: COPD with exacerbation (CMS/HCC) Other Active medical issues also addressed during this admission: Active Hospital Problems Diagnosis Consolidation of left lower lobe of lung Diabetes mellitus with hyperglycemia ([facility]/HCC) Essential hypertension COPD with exacerbation ([facility]) Acute on chronic congestive heart failure ([facility]) Closed compression fracture of body of L1 vertebra ([facility]/HCC) L1 vertebral fracture ([facility]) Chronic anticoagulation CAD (coronary atherosclerotic disease) Acute on chronic hypoxic respiratory failure ([facility]) Chronic combined systolic and diastolic congestive heart failure ([facility]) HFrEF (heart failure with reduced ejection fraction) ([facility]) Chronic respiratory failure with hypoxia, on home O2 therapy ([facility]) Former smoker Bipolar affective disorder ([facility]) Resolved Hospital Problems No resolved problems to display. HOSPITAL COURSE: Please see H and P for full details on admission, symptoms and initial care. Vanessa Diaz is a 59-year-old female with a history of heart failure with reduced ejection fraction, chronic obstructive pulmonary disease on home oxygen, L1 vertebral fracture, hypertension, coronary artery disease with prior stent placement, chronic pain syndrome, insulin-dependent diabetes mellitus, prior pulmonary embolism on anticoagulation, obesity, opiate dependence, history of breast cancer status post mastectomy, history of splenectomy, and bipolar disorder, who was admitted on 11/13/2024 for evaluation of shortness of breath and back pain following a fall at home and a syncopal episode. On admission, she reported worsening shortness of breath, significant back pain at the site of a prior L1 compression fracture, and a syncopal event with loss of consciousness and incontinence. Initial evaluation revealed tachycardia, hypoxemia on 4 L nasal cannula, hyperglycemia (blood glucose 539), elevated lactate (3.9), and low serum bicarbonate (20). Imaging included a head CT (no acute intracranial process), cervical spine CT (no acute fracture), and CT chest/abdomen/pelvis, which demonstrated a mass-like consolidation in the left lung without evidence of pulmonary embolism or acute intrathoracic findings. The principal diagnosis was sepsis secondary to suspected left lung pneumonia, s upported by clinical presentation, laboratory findings, and imaging. Empiric antibiotics with ceftriaxone and azithromycin were initiated, and pulmonary toilet measureswere continued with albuterol, guaifenesin, and incentive spirometry. Sputum cultures and a pneumonia pathogen panel were obtained. IV steroids were administered during the hospital course. Oxygen req uirements decreased to 2-3 L nasal cannula, and she remained on her home inhalers and pulmonary toilet regimen. Patient was breathing well on room air without any distress day of discharge. She needsto follow up with PCP and pulmonary in regards to her abnormal CT showing mass like consolidation, if this is to persist obtaining tissue diagnosis should be considered. I explained this to patient in detail. She has history of breast cancer. Patient will complete PO antibiotics and steroids for COPD exacerbation due to pneumonia. PCP COMMUNICATION : Delta Wade MD via [employer] communication MEDICATION RECONCILIATION: Current and discharge medications reviewed and reconciled: Yes Consultants: None DISCHARGE MEDICATIONS: Medication List START taking these medications azithromycin 500 mg tablet Commonly known as: ZITHROMAX Take 1 Tablet (500 mg) by mouth daily. Signed by: Dr. Jahaira Loaiza Quantity: 2 Tablet Refills: 0 cefdinir 300 mg capsule Commonly known as: OMNICEF Take 1 Capsule (300 mg) by mouth every 12 hours for 5 days. Signed by: Dr. Jahaira Loaiza Quantity: 10 Capsule Refills: 0 lidocaine 5 % Adhesive Patch, Medicated Commonly known as: LIDODERM Apply 1 Patch to affected area every 24 hours. Signed by: Dr. Jahaira Loaiza Quantity: 30 Patch Refills: 0 CONTINUE taking these medications acetaminophen [...] by mouth daily at bedtime. Refills: 0 benzonatate 100 mg capsule Commonly known as: TESSALON Take 1 Capsule (100 mg) by mouth every 4 hours as needed for Cough. Signed by: Dr. Myron Garcia Quantity: 60 Capsule Refills: 1 blood sugar diagnostic Strip Use to test blood glucose up to QID PRN symptoms. Signed by: Dr. Myron Burk Quantity: 100 Each Refills: 11 Blood-Glucose Meter Kit Use to test blood glucose up to TID PRN symptoms. Signed by: Dr. Myron Burk Quantity: 1 Each Refills: 0 krkaarkdny-utxdrtmiotiapi-wyvahztare 160-9-4.8 mcg/actuation HFA Aerosol Inhaler Commonly known as: BREZTRI Take 2 Puffs by inhalation 2 times daily. Signed by: Dr. Pio Borges Quantity: 60 Each Refills: 1 empagliflozin 10 mg tablet Commonly known as: [...] Steven Fairchild Quantity: 60 Tablet Refills: 3 guaiFENesin 600 mg Extended Release Biphasic tablet Commonly known as: MUCINEX Take 1 Tablet (600 mg) by mouth every 12 hours for 14 days. Signed by: Dr. Myron Garcia Quantity: 28 Tablet Refills: 0 HYDROcodone-acetaminophen 7.5-325 mg Tablet Commonly [...] EVERY DAY Signed by: Nurse Practitioner Pio Vrigen Quantity: 30 Tablet Refills: 1 Lantus Solostar [...] 30 Tablet Refills: 0 naloxone 4 mg/spray Ragley, Non-Aerosol Commonly known as: NARCAN EMERGENCY USE [...] Tablets (40 mg) by mouth daily with breakfast. Start taking on: November 17, 2024 Signed by: Dr. Jahaira Loaiza Quantity: 4 Tablet Refills: 0 ranolazine ER 500 mg [...] Other (See Comment) (rash). Signed by: Dr. Mark Mena Quantity: 10 Gram Refills: 0 Ventolin [...] Your Medications These medications were sent to [facility]/pharmacy #[id number] - [place] [id number] [facility] [address] [facility] [address] [address] Hours: M-F [id number] Sat 0329-0424 Sun closed azithromycin 500 mg tablet cefdinir 300 mg capsule lidocaine 5 % Adhesive Patch, Medicated predniSONE 20 mg tablet DISCHARGE EXAM: BP (!) 141/97 (BP Location: Right arm, Patient Position (BP): Sitting) Pulse 78 Temp 98.8 ??F (37.1 ??C) (Oral) Resp 22 Ht 5' 4 (1.626 m) Wt 96.2 kg (212 lb) SpO2 96% BMI 36.39 kg/m?? Last documented weight: Weight: 96.2 kg (212 lb) (11/13/24 1005) General: alert Neurologic: no gross focal deficits HEENT: atraumatic, normocephalic, without obvious abnormality Lungs: non labored breathing Heart: normal rate Abdomen: non distended Extremities: extremities with slight edema at ankles Skin: negative for rash on exposed skin Total time spent on discharge services today including examining and educating the patient and available family members, writing prescriptions and reviewing the discharge medication list, documentingthis discharge summary and coordinating outpatient care and follow up required greater than 30 minutes. documented in this encounter Discharge Instructions * Discharge Instructions* Alaina Franco RN - 11/16/2024 12:04 PM CDT [facility] Nursing Discharge Instructions Discharge to: home Symptoms/Diagnosis: <principal problem not specified> Porcedures Performed, if any: Labs and studies from this hospitalization needing follow up: None Follow up PCP Please schedule a follow up appointment with PCP, Delta Wade MD Follow up consultants Referral to Pulmonology. The office will contact you with your appointment information Additional Problems: Active Hospital Problems Diagnosis Consolidation of left lower lobe of lung Diabetes mellitus with hyperglycemia (CMS/HCC) Essential hypertension Acute on chronic congestive heart failure (CMS/HCC) Closed compression fracture of body of L1 vertebra (CMS/HCC) L1 vertebral fracture (CMS/HCC) Chronic anticoagulation CAD (coronary atherosclerotic disease) Acute on chronic hypoxic respiratory failure (CMS/HCC) 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) HFrEF (heart failure with reduced ejection fraction) (CMS/HCC) Chronic respiratory failure with hypoxia, on home O2 therapy (CMS/HCC) Former smoker Bipolar affective disorder (CMS/HCC) Resolved Hospital Problems No resolved problems to display. Code Status: Full Code Labs: Recent Labs 11/14/24 0553 11/15/24 0403 WBC 9.8 8.6 HCT 32.6* 34.0* PLT 190 181 Recent Labs 11/13/24 1412 11/14/24 0553 11/15/24 0403 NA 137 138 140 K 4.4 4.1 3.9 CL 105 105 108* CO2 18* 23 23 CA 8.3* 8.8 8.7 BUN 17 14 16 CREAT 0.39* 0.48* 0.50* GLUCOSE 353* 279* 227* Recent Labs 11/14/24 0553 11/15/24 0403 TOTALPROTEIN 5.9* 5.7* ALBUMIN 3.3* 3.2* BILITOTAL 0.3 0.2 ALKPHOS 106* 103 AST 14 18 ALT 35 37* Recent Labs 11/14/24 0553 11/15/24 0403 INR 1.2 1.3* PT 15.8* 17.1* Finger stick blood glucose: with meals and at bedtime, record your results and bring this log with you to your appointment for the physician to review. Notify the physician if you have blood sugar readings greater than 250 or less than 70 consistently. You might need additional medications for better control Activity level: up as tolerated and fall precautions Diet: DIET DIABETIC Wound Care: Excoriation to folds and periarea, keep clean and dry Monitor skin for breakdown Communicable Disease: none Other Comments: Weight monitoring for CHF Take your medication as instructed, complete your antibiotics are ordered Oxygen - continue home dose amount Follow up in the Emergency Room for any recurrence or worsening of admission concerns, chest pain, palpitations, shortness of breath, coughing blood, nausea, vomiting, diarrhea, fever, chills, bleeding, bloody or tarry stools, change to urine or bowel output Contact hospitalist office [phone] for questions if [facility] Contact [facility] Transfer Hub at [phone] if the patient needs a direct admission * Attachments The following attachments cannot be sent through Care Everywhere. * Heart Failure Zones: General Info (Rwandan) * Heart Failure: Avoiding Triggers [facility] (Rwandan) * COPD: Triggers: General Info (Rwandan) * Oxygen Therapy (Rwandan) * Diabetes: Blood Sugar Emergencies (Rwandan) * Diabetes: Carb Counting and Eating Well: General Info (Rwandan) * Diabetes: Carbohydrates and Your Blood Sugar: Video (Rwandan) * Pneumonia (Rwandan) * Lidocaine Transdermal Patch (Rwandan) * Azithromycin (Rwandan) * Antibiotics: General Info (Rwandan) * Cefdinir (Rwandan) documented in this encounter Medications at Time of Discharge predniSONE (DELTASONE) 20 mg tablet Take 2 Tablets (40 mg) by mouth daily with breakfast. 4 Tablet 5 azithromycin (ZITHROMAX) 500 mg tablet Take 1 Tablet (500 mg) by mouth daily. 2 Tablet 5 cefdinir (OMNICEF) 300 mg capsule Take 1 Capsule (300 mg) by mouth every 12 hours for 5 days. 10 Capsule 5 11/22/19 25 lidocaine (LIDODERM) 5 % Adhesive Patch, Medicated Apply 1 Patch to affected area every 24 hours. 30 Patch 5 12/17/19 25 benzonatate (TESSALON) 100 mg capsule Take 1 [...] 1 Each 4 naloxone (NARCAN) 4 mg/spray Ragley, Non-Aerosol EMERGENCY USE ONLY: Administer 1 spray (4 mg) in one nostril one time. May repeat in alternating nostrils every 2-3 min until responsive or EMS arrives. 2 Each 3 3 blood sugar diagnostic StripIndications: Type 2 diabetes mellitus without complication, without long-term current use of insulin ([facility]) Use to test blood glucose up to QID PRN symptoms. 100 Each 11 3 OneTouch Delica Plus Lancet 30 gauge USE TO test fasting blood glucose DAILY 3 Blood-Glucose Meter KitIndications:Ty pe 2 diabetes mellitus without complication, without long-term current use of insulin ([facility]) Use to test blood glucose up to TID PRN symptoms. 1 Each 3 documented as of this encounter Progress Notes * Jean Smith, CONSTRUCTION ACCOUNTANT - 11/16/2024 1:45 PM CDT Pt to discharge home with friends. Discharge paperwork reviewed with pt. All questions answered. Verbalized understanding. IV removed. Left with all belongings. * Sukhdeep Rich V (Student) - 11/16/2024 1:06 PM CDT Reason for Visit: Priority Patient List Patient spiritual issues identified summary of patient???s most significant issue(s): Family Patient present during encounter. Nicole/values: No Preferences Vanessa was on the phone when I visited her and she stated that she is going home today with her friend and she was on the phone with her. She is feeling better and hope to be that way. She accepted prayer and she was thankful for the visit. Spiritual interventions Utilized presence and active listening to explore feelings, stressors, perceptions, questions/concerns, and coping patterns of Vanessa and their family member. Hope instilled;Emotional support;Spiritual support provided CREW MANAGER???S ASSESSMENT OF PATIENT???S LEVEL OF DISTRESS: mild Swine Nutritionist Plan: Spiritual Care Services remain available for referral PRN. Recommendations for Healthcare Team As spiritual needs/distress arise, please contact Spiritual Care Services. We will follow up as needed. Thank you for this referral. Swine Nutritionist [facility] Spiritual Care Team [phone] * Surinder Mc, Physical Therapist - 11/15/2024 1:45 PM CDT [facility] - Therapy Services [facility]. Acute Physical Therapy Evaluation 11/15/2024 Room: [address] [place] [address] Name: Le Diaz Age: 59 y.o. Date of : 1965 Insurance: Payor: MEDICAID / Plan: MEDICAID [place] / [facility] Type: Medicaid / Patient Class: Inpatient Onset of illness/injury or date of surgery: 11/13/2024 Subjective Information/History Subjective Information Provided By: Patient, Family, and Chart review Patient resting in bed when PT arrived to room. Patient mother and father at bedside. Patient agreed to PT evaluation. Patient lives with parents who provide 24 hour assistance Prior level of Function: ADLS- moderate assistance needed for LB dressing, intermittent minimal to moderate assistance for toileting, and total assistance for bathing from her mother IADLS - provided by mother and father Patient does note drive Functional mobility : patient was walking independently with 4 WW Patient reports a history of falls: patient / family report at least 10 falls in the last 6 months,fall lead to current admission Home Environment: 1-Story home Walk in shower 4-5 steps to enter with hand railing Available Adaptive Equipment: Walkers: 2 wheeled and 4 wheeled Hospital Bed Home Oxygen Hand-held shower head Swatch Maker Sock aid Assistance available: patient lives at home with mother and father who are available to assist 13/10 Patient/Family Goals Statement: to get stronger Pain: Refer to Doc Flowsheet for documented pain levels. Consent To Treatment Given By: Patient, Family, and Nurse Safety Awareness Orientation: Person, Place, Date, and Situation Command Following: fair Safety Awareness: Fair , impulsive, slow processing, decreased problem solving, poor insight into deficits, and poor attention to task Precautions Patient Precautions: Fall Risk, Spinal (log roll) , and Oxygen Bracing/Orthotics: none Weight Bearing: No Restrictions Objective Information/Examination Muscle Tone: Normal Coordination: Normal Sensation: Intact to light touch ROM: Right UE: Active: WFL Left UE: Active: WFL Right LE: Active: WFL Left LE: Active: WFL Strength: Right UE: 4-/5 Left UE: 4-/5 Right LE: 4-/5 Left LE: 4-/5 Functional Mobility: All functional mobility with non skid socks, gait belt and use of 2 WW Rolling: modified Independent Scooting: modified Independent Supine to sit: modified Independent Sit to supine: modified Independent Sit to stand: minimal assist with verbal cues to press off sitting surface with hands Bed to chair: minimal assistance with 2 WW Gait Trainin feet with rolling walker. minimal assistance for safety / balance management of portable 02 / monitoring equipment . Deficits affecting function/Deviations noted: decreased base support, reduced stride length, patient fatigues fast Patient required verbal cues energy conservation, proper breathing techniques, proper posture, use of UE's in transfers, proper log roll technique, to get center of gravity over ARMIDA, for assistive device placement with regards to feet/trunk, and gait training cues provided Balance: Sitting: patient able to sit EOB x 5 min with good balance / safety independently Standing: patient able to stand with 2 WW with minimal / supervision Vitals Patient on 3 liters/min via nasal cannula Vital signs stable throughout session At rest: HR: 81 bpm, O2 Sat: 97% During activity: HR: 89 bpm, O2 Sat: 94% After activity: HR: 86 bpm, O2 Sat: 96% [facility] AM-PAC Basic Mobility How much help from [...] 6. Climbing 3-5 steps with a railing? 2 - A lot (max to mod assist) Total score 19/24 0-16 - indicates likely facility discharge 17-24 indicates likely community discharge * scores determined based on patient report, observation or professional expertise Assessment/Plan Le Diaz is a 59 y.o.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 episode, and back pain following a fall. They are clinically stable. Vital signs stable in the emergency department. Patient with severe history of COPD and is on 4 L at baseline. Patient was given breathing treatment and steroids with some improvement noted. Due to concerns for pneumonia sepsis protocol was initiated upon arrival to the ED. Patient was given IV antibiotics and fluids due to concerns of infection. Blood cultures and lactic acid were drawn. Initial lactic is elevated at 3.9. No other markers for infection. CT angio chest shows no signs of PE. Nosigns of pneumonia or pneumothorax. Patient does have pulmonary mass that is chronic and has no acute change. Patient respiratory status did improve throughout the ER stay. COVID and flu testing negative. Patient also reports a syncopal event today. Patient with no signs of trauma on examination other than some superficial skin tear to left forearm. CT brain shows no acute intracranial abnormality. CTcervical spine shows no acute fracture or dislocation. CT chest abdomen pelvis with no signs of traumatic injury noted. Patient lab studies are consistent with previous. Mild elevation of troponin. Patient denies any chest pain. Overall low suspicion of ACS. EKG with no signs of STEMI. Patient does have significant hyperglycemia, patient has history of diabetes and has received multiple doses of steroid medication. No signs of DKA with normal anion gap today. Differential diagnosis includes: COPD exacerbation, PE, pneumonia, pneumothorax, dissection, ACS Discussed the patient with Dr. Elizabeth and she agrees to admit the patient. Patient care transferred with no time sensitive studies pending. ED Course as of 11/13/24 1249 Mei Nov 13, 2024 [address] Elizabeth [NT] 1235 Dr. Elizabeth agrees to admit the patient [NT] ED Course User Index [NT] Austin Robertson MD Medical Decision Making Amount and/or Complexity of Data Reviewed Labs: ordered. Radiology: ordered. ECG/medicine tests: ordered. Risk Prescription drug management. Decision regarding hospitalization. Clinical Scoring & Consults Medications Administered During the ED Stay from 11/13/2024 1002 to 11/13/2024 1249 Date/Time Order Dose Route Action 11/13/2024 1030 CDT ipratropium-albuteroL (DUONEB) 0.5 mg-3 mg(2.5 mg base)/3 mL inhalation solution 3 mL 3 mL Inhalation Given 11/13/2024 1102 CDT methylPREDNISolone sodium succinate (SOLU-Medrol) 125 mg in sterile water 2 mL injection 125 mg IV Given 11/13/2024 1114 CDT morphine 4 mg/mL injection 4 mg 4 mg IV Given 11/13/2024 1114 CDT ondansetron (ZOFRAN) 4 mg/2 mL injection 4 mg 4 mg IV Given 11/13/2024 1200 CDT sodium chloride flush injection 10 mL 10 mL IV Given 11/13/2024 1146 CDT iopamidoL (ISOVUE-300) 61% injection (drawn from multi-use bulk pack) 100 mL 100 mL IV Contrast Given 11/13/2024 1241 CDT cefTRIAXone (ROCEPHIN) 2,000 mg in sodium chloride 0.9% 50 mL IVPB (MBP) 0 mg IV Stopped 11/13/2024 1211 CDT cefTRIAXone (ROCEPHIN) 2,000 mg in sodium chloride 0.9% 50 mL IVPB (MBP) 2,000 mg IV New Bag 11/13/2024 1237 CDT azithromycin (ZITHROMAX) 500 mg in sodium chloride 0.9 % 250 mL IVPB 500 mg IV New Bag 11/13/2024 1210 CDT sodium chloride 0.9 % bolus solution 1,000 mL 1,000 mL IV New Bag . New Prescriptions for this Encounter LAST VS BP: (!) 148/126 (11/13/24 1115), Heart Rate: 99 bpm (11/13/24 1115), Resp: 21 (11/13/24 1115), Pulse: 100 (11/13/24 1115), Temp: 97.8 ??F (36.6 ??C) (11/13/24 1005), Temp src: Oral (11/13/24 1005), SpO2: 98 % (11/13/24 1115) CLINICAL IMPRESSION Diagnoses Diagnosis Comment Added By Time Added COPD with exacerbation ([facility]) [J44.1] Austin Robertson MD 11/13/2024 12:35 PM Respiratory distress [R06.03] Austin Robertson MD 11/13/2024 12:35 PM Type 2 diabetes mellitus with hyperglycemia, with long-term current use of insulin ([facility]) [E11.65, Z79.4] Austin Robertson MD 11/13/2024 12:36 PM DISPOSITION, EDUCATION AND MEDICATION RECONCILIATION Medications reconciled. See after visit summary for patient education on discharged patients. ED Disposition ED Disposition Admit Condition Stable User Austin Robertson MD Date/Time Sun Nov 13, 2024 12:34 PM Comment -- Diagnoses Diagnosis Comment Added By Time Added COPD with exacerbation ([facility]) [J44.1] Austin Robertson MD 11/13/2024 12:35 PM Respiratory distress [R06.03] Austin Robertson MD 11/13/2024 12:35 PM Type 2 diabetes mellitus with hyperglycemia, with long-term current use of insulin ([facility]) [E11.65, Z79.4] Austin Robertson MD 11/13/2024 12:36 PM documented in this encounter Miscellaneous Notes * Care Plan - Elise Fields RN - 11/16/2024 6:05 AM CDT Shift Summary Pain remained severe and required multiple interventions, with minimal relief reported. Blood glucose was elevated and decreased after insulin lispro administration. Oxygen therapy was maintained at 3L via nasal cannula, with improvement in SpO2 and respiratory rate over the shift. Skin integrity was supported by regular repositioning and specialty bed use, though excoriation anderythema were present. Patient remained safe and independent in transfers, with no falls or injuries documented during theshift. Patient is non-complaint with Blood sugar control.Patient wants food every time they are awake.Patient has also been incontinent and d/t that we have not been able to collect the urine sample. On shift ENROLLMENT MANAGER stated patient reported to them they nearly fell but was able to catch herself.ENROLLMENT MANAGER stated they asked patient if she hit the floor but patient stated no. When I went to attend to patient needs,patient stated I am hurting so bad at back because I fell whiles trying to use the BSC . I then referred patient to the statement she made to the ENROLLMENT MANAGER but she stated I was the only one here and I fell and hit the floor.Now,my back hurts more and I need pain medication. Assessed patient for injuries and none was noted. PRN medication was not due yet so,on-call COST SPECIALIST was notified and a 1 time oxycodone was ordered and administered. Verbalizes/displays acceptable comfort level or baseline comfort level: Pain remained severe throughout most of the shift despite administration of HYDROmorphone, oxyCODONE, and HYDROcodone-acetaminophen, with only brief periods of rest; single medication modality and movement minimization were used, but patient frequently verbalized no change in pain. Safety/Fall: Absence of fall, injury, harm during hospitalization: No falls or injuries occurred; fall risk precautions and safety checks were maintained, and patient was independent or required onlystand-by assist for transfers. Maintain skin integrity and/or promote wound healing by discharge: Skin integrity was challenged byexcoriation and erythema, but Sae score remained high and moisture exposure was rare; regular repositioning and use of an air cushion were documented. Achieve optimal respiratory function by discharge and/or maintain baseline function: Respiratory status improved with SpO2 rising from 94% to 97% on 3L nasal cannula, and respiratory rate decreased; accessory muscle use and dyspnea on exertion were noted early in the shift, but snoring was later documented. Achieve optimal nutrition and fluid status to meet metabolic needs throughout hospitalization: Intake was consistently 100% with excellent feeding tolerance, and oral intake included snacks and fluids; blood glucose remained elevated but decreased after insulin lispro administration. * Care Plan - Tiffanie Schwarz RN - 11/15/2024 6:16 AM CDT Shift Summary Multiple pain management interventions were required, with both HYDROmorphone and HYDROcodone-acetaminophen administered PRN for severe pain and discomfort. Oxygen therapy was maintained at 3 L/min via nasal cannula, with SpO2 and respiratory rate monitored closely. Blood glucose levels remained elevated throughout the shift, with insulin glargine-yfgn and insulinlispro administered multiple times. CHG baths and skin integrity checks were performed, with excoriation and blanchable redness noted but no new findings. Overall, frequent monitoring and interventions were provided for pain, respiratory support, nutrition, and skin integrity. Infection Risk/Actual: Infection prevention, control, or resolution by discharge: CHG baths were provided twice and blood cultures were collected, with MRSA PCR screening negative and ongoing excoriation noted on skin checks; no new skin integrity concerns documented during the shift. Achieve optimal respiratory function by discharge and/or maintain baseline function: Oxygen therapyvia nasal cannula at 3 L/min was maintained throughout the shift, with SpO2 fluctuating between 93-96% and respiratory rate variable but trending lower overnight. Achieve optimal nutrition and fluid status to meet metabolic needs throughout hospitalization: Intake remained at 80% with excellent feeding tolerance, oral intake route, and adequate nutrient intakedocumented; weight increased over the past two weeks and energy/protein targets were established. Achieve optimal musculoskeletal function by discharge or maintain baseline function: Positioning was frequently adjusted and activity alternated between bed, dangling, and up to bedside commode, withperiods of independent movement noted. * Care Plan - Nika Meadows RN - 11/14/2024 7:38 PM CDT Shift Summary Antibiotics and pain medications were administered as ordered, and blood cultures were collected for further evaluation. Oxygen therapy was continued at 3 L/min via nasal cannula, with SpO2 remaining between 94-96% and intermittent dyspnea on exertion documented. Blood glucose levels remained elevated throughout the shift despite multiple insulin administrations, and oral intake was adequate with no current malnutrition diagnosis. Mobility interventions were implemented, and the patient alternated between bed, dangling, and up to bedside commode, with skin excoriation noted on assessment. Overall, the patient received ongoing interventions for infection risk, respiratory support, pain management, and nutrition, with continued monitoring and supportive care provided throughout the shift. Infection Risk/Actual: Infection prevention, control, or resolution by discharge: Antibiotics were administered and stopped as ordered, and MRSA PCR from the nares was negative; blood cultures were collected but results are pending, and excoriation was noted on skin assessments throughout the shift. Achieve optimal respiratory function by discharge and/or maintain baseline function: Oxygen was maintained at 3 L/min via nasal cannula with SpO2 ranging from 94-96%, and dyspnea on exertion was documented during the shift; respiratory interventions included supplemental oxygen and calming techniques. Achieve optimal nutrition and fluid status to meet metabolic needs throughout hospitalization: Oralintake was adequate with excellent feeding tolerance, intake at 80%, and no malnutrition diagnosis at this time; blood glucose remained elevated despite insulin administration, and weight increased over the past two weeks. Achieve optimal musculoskeletal function by discharge or maintain baseline function: Mobility was promoted with slow, progressive position changes and passive ROM, and activity alternated between bed, dangling, and up to bedside commode throughout the shift. * Care Plan - Sarita Hale RCP - 11/14/2024 10:24 AM CDT Respiratory status reassessed today. Based upon reassessment, therapy will be changed to Albuterol Q4 PRN Sarita Hale RCP * Care Plan - Tasha Wade RN - 11/14/2024 10:04 AM CDT Problem: Discharge Planning Goal: Identify discharge needs upon admission and through discharge Description: Outcome: Progressing Care Management Initial Assessment Initial Discharge Planning Assessment completed. Discussed Care Management's role and Discharge planning. Plan Discharge To: Inpatient Rehab Facility Plan Discharge To - Alternate: Home or Self Care Does the patient have family and/or a caregiver that is willing, able and available to assist if needed? Yes - Name/Relation:Pt lives with friends that are able to care for her if needed Comments: Pt advised that she would like to go to [facility], but does not want to go to a facility where she will have to give up her check. Patient Discharge Planning Goal: [facility] vs Home Patient will potentially discharge to a SNF/NH? Yes Care Management visited with: patient via in person. Prior to admission, patient resides at: friend/relative home. Patient resides in a 1 story home with 6 stairs to enter. Patient's bedroom and bathroom are located on the same floor. Prior to admission, living arrangements: family/friend. Prior to admission, patient's functional level:independent; uses wheeled walker for mobility; needsassistance with iADLs: N/A Community Ambulator: no Prior to admission, the patient has the following DME? Yes wheeled walker Services in the home/community: none Serviced by Receives hemodialysis? No Emergency contact(s): Extended Emergency Contact Information Primary Emergency Contact: TOSINOfeliaEVELYN Mobile Relation: Mother Secondary Emergency Contact: MarcinHuang Mobile Relation: Step Father Electronic Communications Technician needed? No Prescription coverage: yes Preferred Pharmacy verified: [id number] - [address] Insurance coverage verified: Payor: MEDICAID / Plan: MEDICAID [place] / Product Type: Medicaid / Secondary Insurance:N/A Medicaid Status: no spend down Has VA Benefits: no Employment Status: disabled DOES receive Disability Income. PCP verified as: Delta Wade MD Patient has had a stay at an acute care hospital in the last 30 days. Recent Falls?: Last Known Fall: Within the last month Plan for transportation at discharge: Friends Care Management contact information provided. Care Management will continue to follow and assist asneeded. * Care Plan - Krys Hercules, [facility] - 11/13/2024 5:40 PM CDT Images from the original note were not included. Respiratory Patient Care Assessment S- pt indicates that she takes treatments at home and would like to continue them while here. Belkys Diaz is a 59 y.o. female admitted for No admission diagnoses are documented for this encounter. on 11/13/2024 10:17 AM. Social History Tobacco Use Smoking status: Former Average packs/day: 1 pack/day for 43.0 years (43.0 ttl pk-yrs) Types: Cigarettes Start date: 07/21/2022 Smokeless tobacco: Never Vaping Use Vaping status: Never Used Substance Use Topics Alcohol use: No Drug use: No Prior to Admission medications Medication Sig Start Date End Date Taking? Authorizing Provider benzonatate (TESSALON) 100 mg capsule Take 1 Capsule (100 mg) by mouth every 4 hours as needed for Cough. 11/10/24 Yaya Garcia MD guaiFENesin (MUCINEX) 600 mg Extended Release Biphasic tablet Take 1 Tablet (600 mg) by mouth every12 hours for 14 days. 11/10/24 11/24/24 Yaya Garcia MD predniSONE (DELTASONE) 20 mg tablet Take 2 Tablets (40 mg) by mouth daily with breakfast for 5 days. 11/10/24 11/15/24 Yaya Garcia MD zinc OXIDE-cod liver oil (DESITIN) 40 % Paste Apply to affected area see administration instructions. 11/07/24 Maida Yang MD acetaminophen (TYLENOL) 325 mg tablet Take 2 [...] needed for Spasm. 11/04/24 James Lee MD budesonide 160 mcg-glycopyr 9 mcg-formot 4.8 [...] in the day. 10/29/24 Nani Borges MD furosemide (LASIX) 80 mg tablet Take 1 Tablet (80 mg) by mouth 2 times daily. 10/19/24 Jasper Fairchild MD HYDROcodone-acetaminophen (NORCO) 7.5-325 mg Tablet Take 1 Tablet by mouth every 8 hours as needed for Pain, Moderate or Pain, Severe. Provider, Historical empagliflozin (JARDIANCE) 10 mg tablet Take 1 Tablet (10 mg) by mouth daily in the morning. 10/04/24Li Box MD metoprolol succinate (TOPROL XL) 25 [...] mouth daily at bedtime. 05/13/23 Provider, Historical potassium CHLORIDE (KLOR-CON) 10 mEq Extended Release tablet Take 1 Tablet by mouth daily. 05/09/24 Provider, Historical nitroglycerin (NITROSTAT) 0.4 mg [...] at 3 L/min. 08/27/23 Ryann Burk MD naloxone (NARCAN) 4 mg/spray [place], Non-Aerosol EMERGENCY USE ONLY: Administer 1 spray [...] MD Lab Results Component Value Date/Time WBC 8.9 11/13/2024 11:04 AM HGB 10.9 (L) 11/13/2024 11:04 AM HGBPOC 10.6 (L) 11/13/2024 01:02 PM HCT 35.1 (L) 11/13/2024 11:04 AM HCTPOC 32 (L) 11/13/2024 01:02 PM PLT 198 11/13/2024 11:04 AM MCV 97.0 11/13/2024 11:04 AM Lab Results Component Value Date/Time NA 137 11/13/2024 02:12 PM K 4.4 11/13/2024 02:12 PM CL 105 11/13/2024 02:12 PM CO2 18 (L) 11/13/2024 02:12 PM CA 8.3 (L) 11/13/2024 02:12 PM BUN 17 11/13/2024 02:12 PM CREAT 0.39 (L) 11/13/2024 02:12 PM GLUCOSE 353 (H) 11/13/2024 02:12 PM ANIONGAP 14 11/13/2024 02:12 PM BCRATIO SEE NOTE: 07/16/2023 10:52 AM Lab Results Component Value Date/Time TROPONIN 18 06/23/2023 11:20 AM Breath sounds reveal wheezes related to fluid. Last chest x-ray reveals IMPRESSION: 1. Findings suggestive of congestive heart failure or fluid overload. 2. Cardiomegaly. Exam Ended: 11/11/24 20:26 CDT 11/13/2024 ProBNP: 412 Latest spirometry reveals: Unable to perform at this time A- Treat bronchospasm P- Patient educated on purpose and technique of therapy. Based on above, patient will be placed on Albuterol nebulizer Q 6 and PRN. Albuterol MDI PRN. Will reassess patient status daily and PRN. Krys Hercules RCP * Gen AI ED Handoff - GENERATIVE AI HANDOFF NOTE - 11/13/2024 3:34 PM CDT SITUATION: Patient ( ) is a 59-year-old female who has been in the ER for 5 hours. She came to the ER due to shortness of breath fall. The patient's most recent care team on record included: Shira Fox. BACKGROUND: This patient has allergies to Ketorolac Tromethamine, Prochlorperazine, Propoxyphene, Tramadol, Codeine, Propoxyphene N-acetaminophen. ASSESSMENT: Patient's most recent vitals recorded in flowsheets were as follows: BP: 154/90 T: 97.9 F RR: 27 SPO2: 96% HR: 86 WT: 212.0 LBS BMI: 36.39 Most recent Glucose Value: 330. Completed: 2024-11-13 15:04. Last recorded oxygen source was nasal cannula. The patient, Le Diaz, presents with a history of COPD, heart failure with reduced ejection fraction, chronic respiratory failure with hypoxia, and insulin-dependent diabetes mellitus. She experienced a syncopal episode resulting in a fall, causing a skin tear on her left arm and exacerbating her existing L1 vertebral fracture. She has a history of coronary artery disease, hypertension, and obesity with a BMI of 36.39 kg/m??. The patient is on chronic anticoagulation therapy due to a history of pulmonary embolism and deep vein thrombosis. She also has a history of opiate dependence and chronic pain syndrome. RECOMMENDATION: Continue empiric coverage for community-acquired pneumonia with ceftriaxone and azithromycin. Monitor blood glucose levels and manage diabetes with a low-dose correctional sliding scale insulin and basal bolus insulin regimen. Obtain amnvo-wn-vhol glucose before meals and at bedtime. Continue pulmonary toilet measures with albuterol, Mucinex, and incentive spirometry. Maintain current oxygen therapy at 3-4 L nasal cannula. Implement DVT prophylaxis with Lovenox. Monitor for signs of sepsis and manage accordingly. Ensure pain management for back pain and skin tear. Monitor anticoagulation therapy and adjust as needed per protocol. Consider fall risk precautions due to recent syncopal episode and fall. *This summary was created by neal HOANG. The responses are meant to enhance, not replace normal workflow. Please contact the ED nurse for any additional information.* * ED Bed Hold Comment Note - Hanna García RN - 11/13/2024 10:17 AM CDT Bed: 08 Expected date: 11/13/24 Expected time: 10:15 AM Means of arrival: Comments: Triage documented in this encounter Plan of Treatment Upcoming Encounters Date Type Department Care Team (Late st Contact Info) Description 01/12/2025 1:40 PM CDT Office Visit [facility] [address] [place] [phone] Tresa Stockton, [facility] [address] [place] [phone] 04/19/2025 10:30 AM CIVIL TECHNICIAN Office Visit [facility] Endocrinology [facility] [address] [place] [phone] James Lee MD [address] [place], [place] [address] Gricel Mcgovern PA [address] [place] [address] Pending Results Name Type Priority Associated Diagnoses Date /Time BLOOD CULTURE Microbiology Stat 5 11:04 AM CDT BLOOD CULTURE Microbiology Stat 5 11:04 AM CDT BLOOD CULTURE Microbiology Stat 5 11:04 AM CDT BLOOD CULTURE Microbiology Stat 5 11:04 AM CDT Scheduled Orders Name Type Priority Associated Diagnoses Orde r Schedule BLOOD CULTURE Microbiology Routine ONE TIME for 1 Occurrences starting 11/13/2024 until 11/13/2024 BLOOD CULTURE Microbiology Routine ONE TIME for 1 Occurrences starting 11/13/2024 until 11/13/2024 Scheduled Referrals Name Type Priority Associated Diagnoses Orde r Schedule AMB REFERRAL TO PULMONARY Outpatient Referral Routine Abnormal chest CT Ordered: 11/16/2024 documented as of this encounter Goals Goal Patient Goal Type Associated Problems Recent Progress Patient-Stated? Author Heart Failure Goal Care Plan Heart Failure Problem No Silvio Latonya, MARGOT documented as of this encounter Procedures Procedure Name Priority Date/Time Associated Diagnosis Comments POC GLUCOSE Routine 11/16/2024 12:27 PM CDT POC GLUCOSE Routine 11/16/2024 7:55 AM CDT POC GLUCOSE Routine 11/16/2024 2:17 AM CDT POC GLUCOSE Routine 11/15/2024 8:21 PM CDT POC GLUCOSE Routine 11/15/2024 5:44 PM CDT POC GLUCOSE Routine 11/15/2024 12:20 PM CDT POC GLUCOSE Routine 11/15/2024 8:17 AM CDT CBC WITH DIFFERENTIAL Routine 11/15/2024 4:03 AM CDT PROTIME-INR Routine 11/15/2024 4:03 AM CDT COMPREHENSIVE METABOLIC PANEL Routine 11/15/2024 4:03 AM CDT POC GLUCOSE Routine 11/14/2024 8:35 PM CDT POC GLUCOSE Routine 11/14/2024 5:59 PM CDT POC GLUCOSE Routine 11/14/2024 12:30 PM CDT MRSA PCR RAPID SCREEN Routine 11/14/2024 8:47 AM CDT POC GLUCOSE Routine 11/14/2024 8:13 AM CDT CBC WITH DIFFERENTIAL Routine 11/14/2024 5:53 AM CDT PROTIME-INR Routine 11/14/2024 5:53 AM CDT COMPREHENSIVE METABOLIC PANEL Routine 11/14/2024 5:53 AM CDT POC GLUCOSE Routine 11/14/2024 1:54 AM CDT POC GLUCOSE Routine 11/13/2024 11:05 PM CDT POC GLUCOSE Routine 11/13/2024 8:31 PM CDT TROPONIN 6 HR, 5TH GEN Timed Study 7:55 PM CDT EXTRA TUBE (URINE [place]) Stat 11/14/19 5:38 PM CDT URINALYSIS W/REFLEX MICROSCOPIC Stat 11/13/2024 5:38 PM CDT POC GLUCOSE Routine 11/13/2024 5:22 PM CDT RT ASSESS AND TREAT Stat 11/13/2024 3 :19 PM CDT POC GLUCOSE Stat 11/13/2024 2:57 PM CDT TROPONIN 2 HR, 5TH GEN Timed Study 5 2:12 PM CDT BASIC METABOLIC PANEL Stat 11/13/2024 2:12 PM CDT POC LACTIC ACID Stat 11/13/2024 1:02 PM CDT BLOOD GAS ARTERIAL Stat 11/13/2024 1: 02 PM CDT CTA CHEST + ABD/PEL W CONTRAST Stat 11/13/2024 11:[address] CERVICAL SPINE WO CONTRAST Stat 11/13/2024 11:[address] HEAD WO CONTRAST Stat 11/13/2024 1 1:41 AM CDT TROPONIN BASELINE, 5TH GEN Stat 11/13/2024 11:04 AM CDT RESPIRATORY PATHOGEN PCR PANEL Stat 11/13/2024 11:04 AM CDT LACTIC ACID Stat 11/13/2024 11:04 AM CDT CBC WITH DIFFERENTIAL Stat 11/13/2024 11:04 AM CDT BLOOD CULTURE Stat 11/13/2024 11:04 AM CDT BLOOD CULTURE Stat 11/13/2024 11:04 AM CDT KETONES/BETA HYDROXYBUTYRATE Stat 11/13/2024 11:04 AM CDT PROTIME-INR Stat 11/13/2024 11:04 AM CDT BRAIN NATRIURETIC PEPTIDE, BNP OR PROBNP Stat 11/13/2024 11:04 AM CDT COMPREHENSIVE METABOLIC PANEL Stat 11/13/2024 11:04 AM CDT RT ASSESS AND TREAT Stat 11/13/2024 1 0:13 AM CDT EKG 12-LEAD Stat 11/13/2024 10:08 AM CDT documented in this encounter Results * (ABNORMAL) POC GLUCOSE (11/16/2024 12:27 PM CDT) [facility] GLUCOSE POC 186(H) 74 - 99 mg/dL 11/16/2024 12:27 PM CDT [facility] SPECIMEN SOURCE, GLUCOSE POC Capillary 11/16/2024 12:27 PM CDT [facility] Blood, whole 11/16/2024 12:2 7 PM CDT 11/16/2024 2:46 PM CDT [facility]ly Dilshad [facility] POINT OF CARE TESTI NG Final Result Performing Organization Address [facility] Co de Phone Number [facility] CLIA # [id number] [address] [address] [place] [address] * (ABNORMAL) POC GLUCOSE (11/16/2024 7:55 AM CDT) GLUCOSE POC 252(H) 74 - 99 mg/dL 11/16/2024 7:55 AM CDT [facility] SPECIMEN SOURCE, GLUCOSE POC Capillary 11/16/2024 7:55 AM CDT [facility] Blood, whole 11/16/2024 7:55 AM CDT 11/16/2024 8:39 AM CDT Curlyying [facility] POINT OF CARE TESTI NG Final Result Performing Organization Address [facility] [[email or web address]] de Phone Number [facility] CLIA # [id number] [address] [address] * (ABNORMAL) POC GLUCOSE (11/16/2024 2:17 AM CDT) GLUCOSE POC 279(H) 74 - 99 mg/dL 11/16/2024 2:17 AM CDT [facility] SPECIMEN SOURCE, GLUCOSE POC Capillary 11/16/2024 2:17 AM CDT [facility] Blood, whole 11/16/2024 2:17 AM CDT 11/16/2024 2:30 AM CDT Curly Dilshad [facility] POINT OF CARE TESTI NG Final Result Performing Organization Address [facility] Co de Phone Number [facility] CLIA # [id number] [address] [address] [place] [address] * (ABNORMAL) POC GLUCOSE (11/15/2024 8:21 PM CDT) GLUCOSE POC 486(HH) 74 - 99 mg/dL 11/15/2024 8:21 PM CDT [facility] SPECIMEN SOURCE, GLUCOSE POC Capillary 11/15/2024 8:21 PM CDT [facility] Blood, whole 11/15/2024 8:21 PM CDT 11/15/2024 11:38 PM CDT Curly Loaiza DO POINT OF CARE TESTI NG Final Result Performing Organization Address [facility] [[email or web address]] de Phone Number [facility] CLIA # [id number] [address] [address] [place], [place] [address] * (ABNORMAL) POC GLUCOSE (11/15/2024 5:44 PM CDT) [facility] Signature GLUCOSE POC 394(H) 74 - 99 mg/dL 11/15/2024 5:44 PM CDT [facility] SPECIMEN SOURCE, GLUCOSE POC Capillary 11/15/2024 5:44 PM CDT [facility] Blood, whole 11/15/2024 5:44 PM CDT 11/15/2024 11:38 PM CDT Curly Aguirrefldennis POINT OF CARE TESTI NG Final Result Performing Organization Address [facility] Co de Phone Number [facility] CLIA # [id number] [id number] [place], [place] [address] * (ABNORMAL) POC GLUCOSE (11/15/2024 12:20 PM CDT) GLUCOSE POC 155(H) 74 - 99 mg/dL 11/15/2024 12:20 PM CDT [facility] SPECIMEN SOURCE, GLUCOSE POC Capillary 11/15/2024 12:20 PM CDT [facility] Blood, whole 11/15/2024 12:2 0 PM CDT 11/15/2024 11:38 PM CDT [facility] POINT OF CARE TESTI NG Final Result Performing Organization Address City/[facility]/ZIP Co de Phone Number [facility] CLIA # [id number] [address] [address] [place], [place] [address] * (ABNORMAL) POC GLUCOSE (11/15/2024 8:17 AM CDT) GLUCOSE POC 185(H) 74 - 99 mg/dL 11/15/2024 8:17 AM CDT [facility] SPECIMEN SOURCE, GLUCOSE POC Capillary 11/15/2024 8:17 AM CDT [facility] Blood, whole 11/15/2024 8:17 AM CDT 11/15/2024 10:35 AM CDT [facility] POINT OF CARE TESTI NG Final Result [facility] CLIA # [id number] [address] [address] * (ABNORMAL) PROTIME-INR (11/15/2024 4:03 AM CDT) PROTIME 17.1(H) 12.7 - 14.9 Seconds 11/15/2024 4:29 AM CDT [facility] INR 1.3(H) 0.8 - 1.2 11/15/2024 4:29 AM T [facility] Blood Venipuncture / Unknown 11/15/2024 4:03 AM CDT 11/15/2024 4:10 AM CDT [facility] - 11/15/2024 4:29 AM CDT Expected Values for INR: DVT/PE [...] INR 2.5; range 2.0 - 3.0 us Elizabeth Elizabeth MD HEMATOLOGY ORDERABLES Final R esult [facility] CLIA # [id number] [address] [place] [address] * (ABNORMAL) COMPREHENSIVE METABOLIC PANEL (11/15/2024 4:03 AM CDT) SODIUM 140 136 - 145 mmol/L 11/15/2024 4:49 AM T [facility] POTASSIUM 3.9 3.5 - 5.1 mmol/L 11/15/2024 4:49 AM T [facility] CHLORIDE 108(H) 98 - 107 mmol/L 11/15/2024 4:49 AM T [facility] CO2 23 22 - 29 mmol/L 11/15/2024 4:49 AM T [facility] CALCIUM 8.7 8.6 - 10.0 mg/dL 11/15/2024 4:49 AM T [facility] BUN 16 6 - 20 mg/dL 11/15/2024 4:49 AM T [facility] CREATININE 0.50(L) 0.51 - 0.95 mg/dL 11/15/2024 4:49 AM [facility] GLUCOSE 227(H) 74 - 99 mg/dL 11/15/2024 4:49 AM [facility] TOTAL PROTEIN 5.7(L) 6.4 - 8.3 g/dL 11/15/2024 4:49 AM [facility] ALBUMIN 3.2(L) 3.5 - 5.2 g/dL 11/15/2024 4:49 AM [facility] BILIRUBIN TOTAL 0.2 0.0 - 1.0 mg/dL 11/15/2024 4:49 AM [facility] ALKALINE PHOSPHATASE 103 35 - 104 U/L 11/15/2024 4:49 AM [facility] AST 18 10 - 35 U/L 11/15/2024 4:49 AM [facility] ALT 37(H) <=35 U/L 11/15/2024 4:49 AM [facility] GFR >60 >=60 mL/min/1. 73 sq meter 11/15/2024 4:49 AM [facility] Comment:eGFR calculated with 2020 CKD-EPI equation. Vegetarian diet, extremely high or low muscle mass, and may affect results. Cystatin C with Glomerular Filtration Rate is a suitable alternative for these patients. ANION GAP 9 9 - 20 mmol/L 11/15/2024 4:49 AM [facility] Blood Venipuncture / Unknown 11/15/2024 4:03 AM CDT 11/15/2024 4:10 AM T us Elizabeth Elizabeth MD CHEMISTRY ORDERABLES Final Re sult [facility] CLIA # [id number] [address] [address] * (ABNORMAL) CBC WITH DIFFERENTIAL (11/15/2024 4:03 AM CDT) [facility] WBC 8.6 4.8 - 10.8 K/uL 11/15/2024 4:33 AM T [facility] NRBCS 4(H) <1 % 11/15/2024 4:33 AM [facility] RBC 3.38(L) 4.20 - 5.40 M/uL 11/15/2024 4:33 AM CDT [facility] HEMOGLOBIN 10.1(L) 12.0 - 16.0 g/dL 11/15/2024 4:33 AM [facility] HEMATOCRIT 34.0(L) 36.0 - 46.0 % 11/15/2024 4:33 AM [facility] MCV 100.6 84.0 - 103.0 fL 11/15/2024 4:33 AM [facility] MCH 29.9 27.0 - 34.0 pg 11/15/2024 4:33 AM T [facility] MCHC 29.7(L) 30.0 - 35.0 g/dL 11/15/2024 4:33 AM [facility] PLATELETS 181 140 - 440 K/uL 11/15/2024 4:33 AM [facility] MPV 10.6 8.9 - 12.8 fL 11/15/2024 4:33 AM [facility] RDW 19.6(H) 11.0 - 14.5 % 11/15/2024 4:33 AM [facility] RDW-STDEV 72.1(H) 37.0 - 54.0 fL 11/15/2024 4:33 AM [facility] NEUTROPHILS 63 42 - 75 % 11/15/2024 4:33 AM [facility] LYMPHOCYTES 21(L) 24 - 44 % 11/15/2024 4:33 AM [facility] MONOCYTES 12(H) 2 - 10 % 11/15/2024 4:33 AM [facility] EOSINOPHILS 0 0 - 7 % 11/15/2024 4:33 AM CDT [facility] BASOPHILS 0 0 - 1 % 11/15/2024 4:33 AM CDT [facility] IMMATURE GRANULOCYTES 3(H) 0 - 2 % 11/15/2024 4:33 AM CDT [facility] NEUTROPHIL ABSOLUTE 5.45 2.00 - 8.00 K/uL 11/15/2024 4:33 AM CDT [facility] LYMPHOCYTE ABSOLUTE 1.83 1.20 - 4.00 K/uL 11/15/2024 4:33 AM CDT [facility] MONOCYTE ABSOLUTE 1.05(H) 0.10 - 0.60 K/uL 11/15/2024 4:33 AM CDT [facility] EOSINOPHIL ABSOLUTE 0.00 0.00 - 0.70 K/uL 11/15/2024 4:33 AM CDT [facility] BASOPHILS ABSOLUTE 0.03 0.00 - 0.20 K/uL 11/15/2024 4:33 AM CDT [facility] IMMATURE GRANULOCYTES ABSOLUTE 0.21(H) 0.00 - 0.10 K/uL 11/15/2024 4:33 AM T [facility] SMEAR REVIEWED: NN - No Action Needed 11/15/2024 4:33 AM T [facility] Blood Venipuncture / Unknown 11/15/2024 4:03 AM CDT 11/15/2024 4:10 AM CDT us Elizabeth Elizabeth MD HEMATOLOGY ORDERABLES Final R esult [facility] CLIA # [id number] [address] [place] [id number] * (ABNORMAL) POC GLUCOSE (11/14/2024 8:35 PM CDT) [facility] Signature GLUCOSE POC 414(HH) 74 - 99 mg/dL 11/14/2024 8:35 PM CDT [facility] SPECIMEN SOURCE, GLUCOSE POC Capillary 11/14/2024 8:35 PM CDT [facility] Blood, whole 11/14/2024 8:35 PM CDT 11/14/2024 10:18 PM CDT [facility] POINT OF CARE TESTI NG Final Result Performing Organization Address [facility]/ZIP Co de Phone Number [facility] CLIA # [id number] [address] [address] * (ABNORMAL) POC GLUCOSE (11/14/2024 5:59 PM CDT) GLUCOSE POC 389(H) 74 - 99 mg/dL 11/14/2024 5:59 PM CDT [facility] SPECIMEN SOURCE, GLUCOSE POC Capillary 11/14/2024 5:59 PM CDT [facility] Blood, whole 11/14/2024 5:59 PM CDT 11/14/2024 6:23 PM CDT Curly Dilshad [facility] POINT OF CARE TESTI NG Final Result Performing Organization Address [facility] Co de Phone Number [facility] CLIA # [id number] [address] [address] * (ABNORMAL) POC GLUCOSE (11/14/2024 12:30 PM CDT) GLUCOSE POC 310(H) 74 - 99 mg/dL 11/14/2024 12:30 PM CDT [facility] SPECIMEN SOURCE, GLUCOSE POC Capillary 11/14/2024 12:30 PM CDT [facility] Blood, whole 11/14/2024 12:3 0 PM CDT 11/14/2024 2:19 PM CDT Curly Loaiza DO POINT OF CARE TESTI NG Final Result [facility] CLIA # [id number] [address] [place] [address] * MRSA PCR RAPID SCREEN (11/14/2024 8:47 AM CDT) [facility] MRSA PCR RESULT MRSA not detected MRSA not detected 11/14/2024 10:11 AM CDT [facility] Surveillance ANTERIOR NARES SWAB / Unknown Collection / Unknown 11/14/2024 8:47 AM CDT 11/14/2024 8:52 AM CDT Narrative [facility] - 11/14/2024 10:11 AM CDT This assay is used to detect Methicillin-Resistant S. aureus (MRSA) colonization of the nares. PLEASE NOTE: This test has not been approved to monitor effectiveness of MRSA decolonization. Residual DNA may temporarily be present after successful decolonization. This test was performed using an FDA approved screening methodology. Curly Loaiza DO MICROBIOLOGY - GENE RAL ORDERABLES Final Result Performing Organization Address City/[facility]/ZIP Co de Phone Number [facility] CLIA # [id number] [address] [place] [address] * (ABNORMAL) POC GLUCOSE (11/14/2024 8:13 AM CDT) [facility] GLUCOSE POC 246(H) 74 - 99 mg/dL 11/14/2024 8:13 AM CDT [facility] SPECIMEN SOURCE, GLUCOSE POC Capillary 11/14/2024 8:13 AM CDT [facility] Blood, whole 11/14/2024 8:13 AM CDT 11/14/2024 9:26 AM CDT Curly Loaiza DO POINT OF CARE TESTI NG Final Result Performing Organization Address [facility] Co de Phone Number [facility] CLIA # [id number] [address] [address] * (ABNORMAL) PROTIME-INR (11/14/2024 5:53 AM CDT) PROTIME 15.8(H) 12.7 - 14.9 Seconds 11/14/2024 6:27 AM CDT [facility] [employer] [facility] INR 1.2 0.8 - 1.2 11/14/2024 6:27 AM CDT [facility] [employer] [facility] Blood Venipuncture / Unknown 11/14/2024 5:53 AM CDT 11/14/2024 6:10 AM CDT Narrative [facility] [employer] [facility] - 11/14/2024 6:27 AM CDT Expected Values for INR: DVT/PE [...] Goal INR 2.5; range 2.0 - 3.0 Elizabeth Elizabeth MD HEMATOLOGY ORDERABLES Final R esult Performing Organization Address City/[facility]/ZIP Co de Phone Number [facility] [employer] [facility] CLIA # [id number] [address] [id number] * (ABNORMAL) COMPREHENSIVE METABOLIC PANEL (11/14/2024 5:53 AM CDT) SODIUM 138 136 - 145 mmol/L 11/14/2024 7:01 AM [facility] POTASSIUM 4.1 3.5 - 5.1 mmol/L 11/14/2024 7:01 AM [facility] CHLORIDE 105 98 - 107 mmol/L 11/14/2024 7:01 AM [facility] CO2 23 22 - 29 mmol/L 11/14/2024 7:01 AM [facility] CALCIUM 8.8 8.6 - 10.0 mg/dL 11/14/2024 7:01 AM [facility] BUN 14 6 - 20 mg/dL 11/14/2024 7:01 AM [facility] CREATININE 0.48(L) 0.51 - 0.95 mg/dL 11/14/2024 7:01 AM [facility] GLUCOSE 279(H) 74 - 99 mg/dL 11/14/2024 7:01 AM [facility] TOTAL PROTEIN 5.9(L) 6.4 - 8.3 g/dL 11/14/2024 7:01 AM [facility] ALBUMIN 3.3(L) 3.5 - 5.2 g/dL 11/14/2024 7:01 AM [facility] BILIRUBIN TOTAL 0.3 0.0 - 1.0 mg/dL 11/14/2024 7:01 AM [facility] ALKALINE PHOSPHATASE 106(H) 35 - 104 U/L 11/14/2024 7:01 AM [facility] AST 14 10 - 35 U/L 11/14/2024 7:01 AM [facility] ALT 35 <=35 U/L 11/14/2024 7:01 AM [facility] GFR >60 >=60 mL/min/1. 73 sq meter 11/14/2024 7:01 AM [facility] Comment:eGFR calculated with 2020 CKD-EPI equation. Vegetarian diet, extremely high or low muscle mass, and may affect results. Cystatin C with Glomerular Filtration Rate is a suitable alternative for these patients. ANION GAP 10 9 - 20 mmol/L 11/14/2024 7:01 AM CDT [facility] Blood Venipuncture / Unknown 11/14/2024 5:53 AM CDT 11/14/2024 6:10 AM CDT us Elizabeth Elizabeth MD CHEMISTRY ORDERABLES Final Re sult [facility] CLIA # [id number] [facility] [address] [address] [place] [address] * (ABNORMAL) CBC WITH DIFFERENTIAL (11/14/2024 5:53 AM CDT) Pathologist [facility] WBC 9.8 4.8 - 10.8 K/uL 11/14/2024 6:18 AM CDT [facility] NRBCS 2(H) <1 % 11/14/2024 6:18 AM CDT [facility] RBC 3.37(L) 4.20 - 5.40 M/uL 11/14/2024 6:18 AM CDT [facility] HEMOGLOBIN 10.0(L) 12.0 - 16.0 g/dL 11/14/2024 6:18 AM CDT [facility] HEMATOCRIT 32.6(L) 36.0 - 46.0 % 11/14/2024 6:18 AM CDT [facility] MCV 96.7 84.0 - 103.0 fL 11/14/2024 6:18 AM CDT [facility] MCH 29.7 27.0 - 34.0 pg 11/14/2024 6:18 AM CDT [facility] MCHC 30.7 30.0 - 35.0 g/dL 11/14/2024 6:18 AM CDT [facility] PLATELETS 190 140 - 440 K/uL 11/14/2024 6:18 AM CDT [facility] MPV 10.9 8.9 - 12.8 fL 11/14/2024 6:18 AM CDT [facility] RDW 19.2(H) 11.0 - 14.5 % 11/14/2024 6:18 AM [facility] RDW-STDEV 68.0(H) 37.0 - 54.0 fL 11/14/2024 6:18 AM T [facility] NEUTROPHILS 71 42 - 75 % 11/14/2024 6:18 AM [facility] LYMPHOCYTES 17(L) 24 - 44 % 11/14/2024 6:18 AM T [facility] MONOCYTES 10 2 - 10 % 11/14/2024 6:18 AM [facility] EOSINOPHILS 0 0 - 7 % 11/14/2024 6:18 AM [facility] BASOPHILS 0 0 - 1 % 11/14/2024 6:18 AM [facility] IMMATURE GRANULOCYTES 2 0 - 2 % 11/14/2024 6:18 AM [facility] NEUTROPHIL ABSOLUTE 6.93 2.00 - 8.00 K/uL 11/14/2024 6:18 AM [facility] LYMPHOCYTE ABSOLUTE 1.62 1.20 - 4.00 K/uL 11/14/2024 6:18 AM [facility] MONOCYTE ABSOLUTE 1.02(H) 0.10 - 0.60 K/uL 11/14/2024 6:18 AM [facility] EOSINOPHIL ABSOLUTE 0.01 0.00 - 0.70 K/uL 11/14/2024 6:18 AM [facility] BASOPHILS ABSOLUTE 0.02 0.00 - 0.20 K/uL 11/14/2024 6:18 AM [facility] IMMATURE GRANULOCYTES ABSOLUTE 0.20(H) 0.00 - 0.10 K/uL 11/14/2024 6:18 AM [facility] SMEAR REVIEWED: NN - No Action Needed 11/14/2024 6:18 AM [facility] Blood Venipuncture / Unknown 11/14/2024 5:53 AM CDT 11/14/2024 6:10 AM CDT Elizabeth Elizabeth MD HEMATOLOGY ORDERABLES Final R esult Performing Organization Address City/[facility]/ZIP Co de Phone Number [facility] CLIA # [id number] [address] [address] * (ABNORMAL) POC GLUCOSE (11/14/2024 1:54 AM CDT) GLUCOSE POC 333(H) 74 - 99 mg/dL 11/14/2024 1:54 AM CDT [facility] SPECIMEN SOURCE, GLUCOSE POC Capillary 11/14/2024 1:54 AM CDT [facility] Blood, whole 11/14/2024 1:54 AM CDT 11/14/2024 2:04 AM CDT Elizabeth Elizabeth MD POINT OF CARE TESTING Final R esult Performing Organization Address [facility] Co de Phone Number [facility] CLIA # [id number] [address] [address] * (ABNORMAL) POC GLUCOSE (11/13/2024 11:05 PM CDT) GLUCOSE POC 315(H) 74 - 99 mg/dL 11/13/2024 11:05 PM CDT [facility] SPECIMEN SOURCE, GLUCOSE POC Capillary 11/13/2024 11:05 PM CDT [facility] Blood, whole 11/13/2024 11:0 5 PM CDT 11/13/2024 11:17 PM CDT Elizabeth Elizabeth MD POINT OF CARE TESTING Final R esult Performing Organization Address City/[facility]/ZIP Co de Phone Number [facility] CLIA # [id number] [id number] [place] [address] * (ABNORMAL) POC GLUCOSE (11/13/2024 8:31 PM CDT) [facility] GLUCOSE POC 370(H) 74 - 99 mg/dL 11/13/2024 8:31 PM CDT [facility] SPECIMEN SOURCE, GLUCOSE POC Capillary 11/13/2024 8:31 PM CDT [facility] Blood, whole 11/13/2024 8:31 PM CDT 11/14/2024 12:55 AM CDT Elizabeth Elizabeth MD POINT OF CARE TESTING Final R esult Performing Organization Address City/[facility]/ZIP Co de Phone Number [facility] CLIA # [id number] [address] [address] * (ABNORMAL) TROPONIN 6 HR, 5TH GEN (11/13/2024 7:55 PM CDT) [facility] TROPONIN T, 6 HR 5TH GEN 18(H) <11 ng/L 11/13/2024 8:50 PM CDT [facility] DELTA 6HR TROPONIN T 1 See Interp. 11/13/2024 8:50 PM CDT [facility] Blood Venipuncture / Unknown 11/13/2024 7:55 PM CDT 11/13/2024 8:18 PM CDT Narrative [facility] - 11/13/2024 8:50 PM CDT Troponin elevated. Delta indeterminate. Delay in collection of timed specimen beyond recommended collection interval. Results must be interpreted in clinical context. us Pablo Morales STUDENT AFFAIRS VICE PRESIDENT CHEMISTRY ORDERABLES Fi nal Result Performing Organization Address City/[facility]/ZIP Co de Phone Number [facility] CLIA # [id number] [address] [facility] [place] [id number] * EXTRA TUBE (URINE [place]) (11/13/2024 5:38 PM CDT) Urine URINE SPECIMEN OBTAINED BY CLEAN CATCH PROCEDURE / Unknown Collection / Unknown 11/13/2024 5:38 PM CDT 11/13/2024 5:43 PM CDT Pablo Morales STUDENT AFFAIRS VICE PRESIDENT URINE ORDERABLES Final Result [facility] CLIA # [id number] [address] [address] * (ABNORMAL) URINALYSIS WITH REFLEX MICROSCOPIC (11/13/2024 5:38 PM CDT) COLOR UA Pale Yellow Pale to Dark Yellow 11/13/2024 5:50 PM CDT [facility] CLARITY UA Clear Clear 11/13/2024 5:50 PM CDT [facility] SPECIFIC GRAVITY UA 1.039(H) 1.003 - 1.035 11/13/2024 5:50 PM CDT [facility] PH UA 6.5 5.0 - 8.0 11/13/2024 5:50 PM CDT [facility] LEUKOCYTE ESTERASE UA Negative Negative 11/13/2024 5:50 PM CDT [facility] NITRITE UA Negative Negative 11/13/2024 5:50 PM CDT [facility] PROTEIN UA Negative Negative 11/13/2024 5:50 PM CDT [facility] GLUCOSE UA 4+(A) Negative 11/13/2024 5:50 PM CDT [facility] KETONES UA Negative Negative 11/13/2024 5:50 PM CDT [facility] UROBILINOGEN UA <2.0 <2.0 mg/dL 5:50 PM CDT [facility] BILIRUBIN UA Negative Negative 11/13/2024 5:50 PM CDT [facility] BLOOD UA Negative Negative 11/13/2024 5:50 PM CDT [facility] Urine URINE SPECIMEN OBTAINED BY CLEAN CATCH PROCEDURE / Unknown Collection / Unknown 11/13/2024 5:38 PM CDT 11/13/2024 5:43 PM CDT Pablo Morales STUDENT AFFAIRS VICE PRESIDENT URINE ORDERABLES Final Result Performing Organization Address [facility]/ZIP Co de Phone Number [facility] CLIA # [id number] [address] [address] * (ABNORMAL) POC GLUCOSE (11/13/2024 5:22 PM CDT) GLUCOSE POC 420(HH) 74 - 99 mg/dL 11/13/2024 5:22 PM CDT [facility] SPECIMEN SOURCE, GLUCOSE POC Capillary 11/13/2024 5:22 PM CDT [facility] COMMENT, GLU POC Alerted Nurse/MARIELLA/DR 11/13/2024 5:22 PM CDT [facility] Blood, whole 11/13/2024 5:22 PM CDT 11/13/2024 5:46 PM CDT Elizabeth Elizabeth MD POINT OF CARE TESTING Final R esult Performing Organization Address City/[facility]/ZIP Co de Phone Number [facility] CLIA # [id number] [address] [address] [place] [address] * (ABNORMAL) POC GLUCOSE (11/13/2024 2:57 PM CDT) GLUCOSE POC 330(H) 74 - 99 mg/dL 11/13/2024 2:57 PM CDT [facility] SPECIMEN SOURCE, GLUCOSE POC Capillary 11/13/2024 2:57 PM CDT [facility] Blood, whole 11/13/2024 2:57 PM CDT 11/13/2024 3:04 PM CDT Austin Robertson MD POINT OF CARE TEST ING Final Result [facility] CLIA # [id number] [address] [address] [place] [address] * (ABNORMAL) BASIC METABOLIC PANEL (11/13/2024 2:12 PM CDT) Pathologist [facility] SODIUM 137 136 - 145 mmol/L 11/13/2024 3:45 PM CDT [facility] POTASSIUM 4.4 3.5 - 5.1 mmol/L 11/13/2024 3:45 PM CDT [facility] Comment:Slightly hemolyzed. Result may be falsely elevated. CHLORIDE 105 98 - 107 mmol/L 11/13/2024 3:45 PM CDT [facility] CO2 18(L) 22 - 29 mmol/L 11/13/2024 3:45 PM CDT [facility] CALCIUM 8.3(L) 8.6 - 10.0 mg/dL 11/13/2024 3:45 PM CDT [facility] BUN 17 6 - 20 mg/dL 11/13/2024 3:45 PM CDT [facility] CREATININE 0.39(L) 0.51 - 0.95 mg/dL 11/13/2024 3:45 PM CDT [facility] GLUCOSE 353(H) 74 - 99 mg/dL 11/13/2024 3:45 PM CDT [facility] GFR >60 >=60 mL/min/1. 73 sq meter 11/13/2024 3:45 PM CDT [facility] Comment:eGFR calculated with 2020 CKD-EPI equation. Vegetarian diet, extremely high or low muscle mass, and may affect results. Cystatin C with Glomerular Filtration Rate is a suitable alternative for these patients. ANION GAP 14 9 - 20 mmol/L 11/13/2024 3:45 PM CDT [facility] Blood Venipuncture / Unknown 11/13/2024 2:12 PM CDT 11/13/2024 2:12 PM CDT Elizabeth Elizabeth MD CHEMISTRY ORDERABLES Final Re sult Performing Organization Address [facility] Co de Phone Number [facility] CLIA # [id number] [address] [place], [place] [id number] * (ABNORMAL) TROPONIN 2 HR, 5TH GEN (11/13/2024 2:12 PM CDT) TROPONIN T, 2 HR 5TH GEN 16(H) <=10 ng/L 11/13/2024 2:37 PM CDT [facility] DELTA 2HR TROPONIN T -1 See Interp. 11/13/2024 2:37 PM CDT [facility] Blood Venipuncture / Unknown 11/13/2024 2:12 PM CDT 11/13/2024 2:12 PM CDT Narrative [facility] - 11/13/2024 2:37 PM CDT Troponin elevated. Delta not changing. Delay in collection of timed specimen beyond recommended collection interval. Results must be interpreted in clinical context. Pablo Morales STUDENT AFFAIRS VICE PRESIDENT CHEMISTRY ORDERABLES Fi nal Result Performing Organization Address [facility] Co de Phone Number [facility] CLIA # [id number] [address] [facility] [place], [place] [id number] * (ABNORMAL) POC LACTIC ACID (11/13/2024 1:02 PM CDT) LACTIC ACID POC 2.7(H) <=2.0 mmol/L 11/13/2024 1:02 [facility] SPE[facility] S[facility], GASES POC Arterial 11/13/2024 1:02 PM CDT [facility] PUNC SITE POC ART PUNCT 11/13/2024 1:02 PM CDT [facility] Blood 11/13/2024 1:02 PM CDT 11/13/2024 1:03 PM CDT Narrative [facility] - 11/13/2024 1:02 PM CDT References ranges displayed are for Arterial samples. us Austin Robertson MD POINT OF CARE TEST ING Final Result [facility] CLIA # [id number] [address] [address] * (ABNORMAL) BLOOD GAS ARTERIAL (11/13/2024 1:02 PM CDT) PH BLOOD POC 7.40 7.35 - 7.45 11/13/2024 1:02 PM [facility] PCO2 POC 37 35 - 45 mm Hg 11/13/2024 1:02 PM [facility] PO2 POC 92 80 - 105 mm Hg 11/13/2024 1:02 PM [facility] HCO3 (CALC) POC 23 22 - 26 mmol/L 11/13/2024 1:02 PM [facility] HEMOGLOBIN POC 10.6(L) 12.0 - 18.0 g/dL 11/13/2024 1:02 PM [facility] BASE EXCESS POC -2 -2 - 3 mmol/L 11/13/2024 1:02 PM [facility] O2 SATURATION POC 98 95 - 98 % 11/13/2024 1:02 PM [facility] SODIUM POC 134(L) 138 - 146 mmol/L 11/13/2024 1:02 PM [facility] POTASSIUM POC 5.0(H) 3.5 - 4.9 mmol/L 11/13/2024 1:02 PM CDT [facility] HEMATOCRIT POC 32(L) 38 - 51 % 11/13/2024 1:02 PM CDT [facility] PH TEMP CORRECT 7.40 7.35 - 7.45 11/13/2024 1:02 PM CDT [facility] PCO2 TEMP CORRECT 37 35 - 45 mm Hg 11/13/2024 1:02 PM CDT [facility] PO2 TEMP CORRECT 92 80 - 105 mm Hg 11/13/2024 1:02 PM CDT [facility] SPECIMEN SOURCE, GASES POC Arterial 11/13/2024 1:02 PM CDT [facility] CALCIUM IONIZED POC 5.3(H) 4.8 - 5.2 mg/dL 11/13/2024 1:02 PM CDT [facility] TCO2 (CALC) POC 24 23 - 27 mmol/L 11/13/2024 1:02 PM CDT [facility] PUNC SITE POC ART PUNCT 11/13/2024 1:02 PM CDT [facility] Blood, arterial 11/13/2024 1 :02 PM CDT 11/13/2024 1:03 PM CDT us uAstin Robertson MD ABG ORDERABLES Fi nal Result [facility] CLIA # [id number] [address] [place] [address] * CTA CHEST + ABD/PEL W CONTRAST (11/13/2024 11:44 AM CDT) Anatomical Region Laterality Modality Chest, Abdomen, Pelvis Computed Tomography 11/13/2024 11:2 7 AM CDT Impressions 11/13/2024 11:58 AM CDT IMPRESSION: Please see below. Exam: CTA CHEST + ABD/PEL W CONTRAST Date/Time of Exam: 11/13/2024 11:44 AM Reason For Exam: Polytrauma, blunt, Fall, Lumbar pain. Diagnosis: See Reason for Exam. Technique: CTA of the chest, abdomen, and pelvis was performed following the administration of intravenous contrast. Post-processing was performed, including sagittal and coronal reformations and 3-D reconstruction. Contrast: IOPAMIDOL 61 % INTRAVENOUS SOLUTION (MULTI-DOSE BULK PACK) Given:100 mL. Comparison: October 31, 2024 October 20, 2024 Findings: CHEST: Suboptimal exam secondary to bolus timing. No thyroid nodules. No lymphadenopathy in the chest. No central pulmonary thromboembolic disease or right heart strain. Coronary artery calcification. There is no pneumothorax or pleural effusion. There is respiratory motion artifact which limits assessment of the lungs. Stable masslike consolidation in the left lower lobe measuring 36 x 18 mm in size. Central airways clear. Abdomen and pelvis: Liver is diffusely hypodense and enlarged. No gallbladder wall thickening. Nodular thickening of the left adrenal gland. No biliary or pancreatic ductal dilatation. Large ventral hernia containing a portion of the liver. No hydronephrosis. No suspicious renal lesions. Bladder mildly distended. No adnexal masses. The small and large bowel are not distended. There is no evidence of acute appendicitis. No lymphadenopathy. No ascites. Aorta nonaneurysmal. There are no destructive lytic or sclerotic bone lesions. There is stable chronic vertebral body height loss at L1. There is mild anterolisthesis at L4-L5. IMPRESSION: 1. No acute intrathoracic or intra-abdominal findings. 2. No evidence of pulmonary thromboembolic disease. 3. Hepatic steatosis and hepatomegaly. Narrative Procedure Note Guilherme Rubin MD - 11/13/2024 IMPRESSION: Please see below. Exam: CTA CHEST + ABD/PEL W CONTRAST Date/Time of Exam: 11/13/2024 11:44 AM Reason For Exam: Polytrauma, blunt, Fall, Lumbar pain. Diagnosis: See Reason for Exam. Technique: CTA of the chest, abdomen, and pelvis was performed following the administration of intravenous contrast. Post-processing was performed, including sagittal and coronal reformations and 3-D reconstruction. Contrast: IOPAMIDOL 61 % INTRAVENOUS SOLUTION (MULTI-DOSE BULK PACK) Given:100 mL. Comparison: October 31, 2024 October 20, 2024 Findings: CHEST: Suboptimal exam secondary to bolus timing. No thyroid nodules. No lymphadenopathy in the chest. No central pulmonary thromboembolic disease or right heart strain. Coronary artery calcification. There is no pneumothorax or pleural effusion. There is respiratory motion artifact which limits assessment of the lungs. Stable masslike consolidation in the left lower lobe measuring 36 x 18 mm in size. Central airways clear. Abdomen and pelvis: Liver is diffusely hypodense and enlarged. No gallbladder wall thickening. Nodular thickening of the left adrenal gland. No biliary or pancreatic ductal dilatation. Large ventral hernia containing a portion of the liver. No hydronephrosis. No suspicious renal lesions. Bladder mildly distended. No adnexal masses. The small and large bowel are not distended. There is no evidence of acute appendicitis. No lymphadenopathy. No ascites. Aorta nonaneurysmal. There are no destructive lytic or sclerotic bone lesions. There is stable chronic vertebral body height loss at L1. There is mild anterolisthesis at L4-L5. IMPRESSION: 1. No acute intrathoracic or intra-abdominal findings. 2. No evidence of pulmonary thromboembolic disease. 3. Hepatic steatosis and hepatomegaly. Austin Robertson MD CT ORDERABLES Fi nal Result * CT CERVICAL SPINE WO CONTRAST (11/13/2024 11:41 AM CDT) Anatomical Region Laterality Modality Spine Computed Tomogra phy 11/13/2024 11:2 4 AM CDT Impressions 11/13/2024 11:46 AM CDT IMPRESSION: Please see below. Exam: CT CERVICAL SPINE WO CONTRAST Date/Time of Exam: 11/13/2024 11:41 AM Reason For Exam: trauma. Diagnosis: See Reason for Exam. Technique: CT of the cervical spine was performed without the administration of intravenous contrast. Comparison: None. Findings: The occipitoatlantal and atlantoaxial articulations appear intact. The vertebral body and facet alignment appears anatomic. There is no evidence of an acute fracture or compression deformity. There are moderate multilevel degenerative changes. Patient is status post C5-C6 ACDF with streak artifact. There is no apparent acute paravertebral soft tissue pathology. IMPRESSION: No acute fracture or traumatic malalignment. Narrative Procedure Note Guilherme Rubin MD - 11/13/2024 IMPRESSION: Please see below. Exam: CT CERVICAL SPINE WO CONTRAST Date/Time of Exam: 11/13/2024 11:41 AM Reason For Exam: trauma. Diagnosis: See Reason for Exam. Technique: CT of the cervical spine was performed without the administration of intravenous contrast. Comparison: None. Findings: The occipitoatlantal and atlantoaxial articulations appear intact. The vertebral body and facet alignment appears anatomic. There is no evidence of an acute fracture or compression deformity. There are moderate multilevel degenerative changes. Patient is status post C5-C6 ACDF with streak artifact. There is no apparent acute paravertebral soft tissue pathology. IMPRESSION: No acute fracture or traumatic malalignment. Tamaraingridzack Kim McTeer STUDENT AFFAIRS VICE PRESIDENT CT ORDERABLES Final R esult * CT HEAD WO CONTRAST (11/13/2024 11:41 AM CDT) Anatomical Region Laterality Modality Head Computed Tomogra phy 11/13/2024 11:2 3 AM CDT Impressions 11/13/2024 11:45 AM CDT IMPRESSION: Please see below. Exam: CT HEAD WO CONTRAST Date/Time of Exam: 11/13/2024 11:41 AM Reason For Exam: trauma. Diagnosis: See Reason for Exam. Technique: CT of the head was performed without the administration of intravenous contrast. Comparison: October 31, 2024. Findings: The ventricular system is normal in size and configuration. No mass, midline shift, extra-axial fluid collection, acute intracranial hemorrhage or evidence of acute transcortical ischemia is identified. No acute subcutaneous soft tissue, osseous or sinus pathology is identified. IMPRESSION: No acute intracranial process. Narrative Procedure Note Guilherme Rubin MD - 11/13/2024 IMPRESSION: Please see below. Exam: CT HEAD WO CONTRAST Date/Time of Exam: 11/13/2024 11:41 AM Reason For Exam: trauma. Diagnosis: See Reason for Exam. Technique: CT of the head was performed without the administration of intravenous contrast. Comparison: October 31, 2024. Findings: The ventricular system is normal in size and configuration. No mass, midline shift, extra-axial fluid collection, acute intracranial hemorrhage or evidence of acute transcortical ischemia is identified. No acute subcutaneous soft tissue, osseous or sinus pathology is identified. IMPRESSION: No acute intracranial process. Pablo Kim McTeer STUDENT AFFAIRS VICE PRESIDENT CT ORDERABLES Final R esult * KETONES/BETA HYDROXYBUTYRATE (11/13/2024 11:04 AM CDT) [facility] BETA HYDROXYBUTYRATE 0.2 0.0 - 0.3 mmol/L 11/13/2024 12:52 PM CDT [facility] Blood Venipuncture / Unknown 11/13/2024 11:04 AM CDT 11/13/2024 11:12 AM CDT Elizabeth Elizabeth MD CHEMISTRY ORDERABLES Final Re sult [facility] CLIA # [id number] [address] [place] [address] * RESPIRATORY PATHOGEN PCR PANEL (11/13/2024 11:04 AM CDT) [facility] Respiratory Pathogen PCR Panel NOT DETECTED No respiratory pathogen nucleic acids detected. 11/13/2024 12:06 PM CDT [facility] COVID-19 PCR NOT DETECTED Not Detected 11/13/2024 12:06 PM CDT [facility] Upper Respiratory ENTIRE NASOPHARYNX / Unknown Collection / Unknown 11/13/2024 11:04 AM CDT 11/13/2024 11:12 AM CDT Narrative [facility] - 11/13/2024 12:06 PM CDT [employer] Respiratory Panel [...] pertussis Bordetella parapertussis Chlamydophila pneumoniae Mycoplasma pneumoniae Austin Robertson MD MICROBIOLOGY - GEN ERAL ORDERABLES Final Result Performing Organization Address [facility]/ZIP Co de Phone Number [facility] [employer] [facility] CLIA # [id number] [address] [address] [place] [address] * (ABNORMAL) LACTIC ACID (11/13/2024 11:04 AM CDT) LACTIC ACID 3.9(H) <=2.0 mmol/L 11/13/2024 11:34 AM CDT [facility] Blood Venipuncture / Unknown 11/13/2024 11:04 AM CDT 11/13/2024 11:11 AM CDT Austin Robertson MD CHEMISTRY ORDERABL ES Final Result Performing Organization Address [facility] Co de Phone Number [facility] [employer] [facility] CLIA # [id number] [address] [address] * (ABNORMAL) TROPONIN BASELINE, 5TH GEN (11/13/2024 11:04 AM CDT) TROPONIN T, BASELINE 5TH GEN 17(H) <=10 ng/L 11/13/2024 11:45 AM CDT [facility] [employer] [facility] Blood Venipuncture / Unknown 11/13/2024 11:04 AM CDT 11/13/2024 11:12 AM CDT Narrative [facility] [employer] [facility] - 11/13/2024 11:45 AM CDT Troponin elevated. Pablo Morales STUDENT AFFAIRS VICE PRESIDENT CHEMISTRY ORDERABLES Fi nal Result Performing Organization Address City/[facility]/ZIP Co de Phone Number [facility] [employer] [facility] CLIA # [id number] [address] [address] * (ABNORMAL) BRAIN NATRIURETIC PEPTIDE, BNP OR PROBNP (11/13/2024 11:04 AM CDT) Pathologist [facility] PROBNP, N TERMINAL 412(H) 0 - 125 pg/mL 11/13/2024 11:46 AM CDT [facility] Comment: INTERPRETIVE COMMENT based on [...] years: >1800 pg/mL Blood Venipuncture / Unknown 11/13/2024 11:04 AM CDT 11/13/2024 11:12 AM CDT Pablo Morales STUDENT AFFAIRS VICE PRESIDENT CHEMISTRY ORDERABLES Fi nal Result [facility] CLIA # [id number] [address] [place] [address] * (ABNORMAL) COMPREHENSIVE METABOLIC PANEL (11/13/2024 11:04 AM CDT) [facility] SODIUM 137 136 - 145 mmol/L 11/13/2024 11:47 AM CDT [facility] POTASSIUM 4.9 3.5 - 5.1 mmol/L 11/13/2024 11:47 AM CDT [facility] CHLORIDE 102 98 - 107 mmol/L 11/13/2024 11:47 AM CDT [facility] CO2 20(L) 22 - 29 mmol/L 11/13/2024 11:47 AM [facility] CALCIUM 9.4 8.6 - 10.0 mg/dL 11/13/2024 11:47 AM [facility] BUN 21(H) 6 - 20 mg/dL 11/13/2024 11:47 AM [facility] CREATININE 0.58 0.51 - 0.95 mg/dL 11/13/2024 11:47 AM [facility] GLUCOSE 539(HH) 74 - 99 mg/dL 11/13/2024 11:47 AM [facility] TOTAL PROTEIN 6.6 6.4 - 8.3 g/dL 11/13/2024 11:47 AM [facility] ALBUMIN 3.6 3.5 - 5.2 g/dL 11/13/2024 11:47 AM [facility] BILIRUBIN TOTAL 0.3 0.0 - 1.0 mg/dL 11/13/2024 11:47 AM [facility] ALKALINE PHOSPHATASE 126(H) 35 - 104 U/L 11/13/2024 11:47 AM [facility] AST 21 10 - 35 U/L 11/13/2024 11:47 AM [facility] ALT 43(H) <=35 U/L 11/13/2024 11:47 AM [facility] GFR >60 >=60 mL/min/1. 73 sq meter 11/13/2024 11:47 AM [facility] Comment:eGFR calculated with 2020 CKD-EPI equation. Vegetarian diet, extremely high or low muscle mass, and may affect results. Cystatin C with Glomerular Filtration Rate is a suitable alternative for these patients. ANION GAP 15 9 - 20 mmol/L 11/13/2024 11:47 AM [facility] Blood Venipuncture / Unknown 11/13/2024 11:04 AM CDT 11/13/2024 11:12 AM T Rozlyn Judy McTeer STUDENT AFFAIRS VICE PRESIDENT CHEMISTRY ORDERABLES Fi nal Result Performing Organization Address [facility]/ZIP Co de Phone Number [facility] [employer] [facility] CLIA # [id number] [address] [address] * (ABNORMAL) PROTIME-INR (11/13/2024 11:04 AM CDT) PROTIME 15.7(H) 12.7 - 14.9 Seconds 11/13/2024 11:25 AM CDT [facility] [employer] [facility] INR 1.2 0.8 - 1.2 11/13/2024 11:25 AM CDT [facility] Blood Venipuncture / Unknown 11/13/2024 11:04 AM CDT 11/13/2024 11:12 AM CDT Narrative [facility] [employer] [facility] - 11/13/2024 11:25 AM CDT Expected Values for INR: DVT/PE [...] Goal INR 2.5; range 2.0 - 3.0 Pablo Kim McTeer STUDENT AFFAIRS VICE PRESIDENT HEMATOLOGY ORDERABLES F inal Result Performing Organization Address City/[facility]/ZIP Co de Phone Number [facility] CLIA # [id number] [address] [address] * (ABNORMAL) CBC WITH DIFFERENTIAL (11/13/2024 11:04 AM CDT) WBC 8.9 4.8 - 10.8 K/uL 11/13/2024 11:28 AM CDT [facility] NRBCS 3(H) <1 % 11/13/2024 11:28 AM [facility] RBC 3.62(L) 4.20 - 5.40 M/uL 11/13/2024 11:28 AM [facility] HEMOGLOBIN 10.9(L) 12.0 - 16.0 g/dL 11/13/2024 11:28 AM [facility] HEMATOCRIT 35.1(L) 36.0 - 46.0 % 11/13/2024 11:28 AM [facility] MCV 97.0 84.0 - 103.0 fL 11/13/2024 11:28 AM [facility] MCH 30.1 27.0 - 34.0 pg 11/13/2024 11:28 AM [facility] MCHC 31.1 30.0 - 35.0 g/dL 11/13/2024 11:28 AM [facility] PLATELETS 198 140 - 440 K/uL 11/13/2024 11:28 AM [facility] [employer] [facility] MPV 10.4 8.9 - 12.8 fL 11/13/2024 11:28 AM [facility] RDW 18.9(H) 11.0 - 14.5 % 11/13/2024 11:28 AM [facility] RDW-STDEV 67.3(H) 37.0 - 54.0 fL 11/13/2024 11:28 AM [facility] NEUTROPHILS 85(H) 42 - 75 % 11/13/2024 11:28 AM [facility] LYMPHOCYTES 8(L) 24 - 44 % 11/13/2024 11:28 AM [facility] MONOCYTES 2 2 - 10 % 11/13/2024 11:28 AM [facility] EOSINOPHILS 0 0 - 7 % 11/13/2024 11:28 AM [facility] BASOPHILS 0 0 - 1 % 11/13/2024 11:28 AM [facility] IMMATURE GRANULOCYTES 5(H) 0 - 2 % 11/13/2024 11:28 AM CDT [facility] NEUTROPHIL ABSOLUTE 7.57 2.00 - 8.00 K/uL 11/13/2024 11:28 AM CDT [facility] LYMPHOCYTE ABSOLUTE 0.69(L) 1.20 - 4.00 K/uL 11/13/2024 11:28 AM CDT [facility] MONOCYTE ABSOLUTE 0.20 0.10 - 0.60 K/uL 11/13/2024 11:28 AM CDT [facility] EOSINOPHIL ABSOLUTE 0.00 0.00 - 0.70 K/uL 11/13/2024 11:28 AM CDT [facility] BASOPHILS ABSOLUTE 0.04 0.00 - 0.20 K/uL 11/13/2024 11:28 AM CDT [facility] IMMATURE GRANULOCYTES ABSOLUTE 0.43(H) 0.00 - 0.10 K/uL 11/13/2024 11:28 AM CDT [facility] SMEAR REVIEWED: NN - No Action Needed 11/13/2024 11:28 AM CDT [facility] Blood Venipuncture / Unknown 11/13/2024 11:04 AM CDT 11/13/2024 11:12 AM CDT Pablo Kim McTeer STUDENT AFFAIRS VICE PRESIDENT HEMATOLOGY ORDERABLES F inal Result [facility] CLIA # [id number] [address] [address] * EKG 12-LEAD (11/13/2024 10:08 AM CDT) 11/13/2024 10:0 8 AM CDT Narrative INTERFACE SYSTEM - 11/13/2024 1:08 PM CDT [id number] [place] [address] Test Date: 2024-11-13 Pat Name: LE DIAZ Department: 11 Room: Gender: Female Erp Technical Lead: [id number] : 1965 Requested By: Order Number: [id number] Reading : Echo Tapia Measurements Intervals [place] Rate: 108 P: 18 WA: 150 QRS: 51 QRSD: 78 T: 101 QT: 340 QTc: 455 Interpretive Statements Sinus tachycardia Possible Inferior infarct, age undetermined Abnormal ECG Electronically Signed On 11-13-2024 13:08:00 CDT by Echo Tapia Procedure Note Provider, Historical 11/13/2024 [id number] [place] [address] Test Date: 2024-11-13 Pat Name: LE JOE Department: 11 Room: Gender: Female Erp Technical Lead: [id number] : 1965 Requested By: Order Number: [id number] Reading MD: Echo Tapia Measurements Intervals [place] Rate: 108 P: 18 WA: 150 QRS: 51 QRSD: 78 T: 101 QT: 340 QTc: 455 Interpretive Statements Sinus tachycardia Possible Inferior infarct, age undetermined Abnormal ECG Electronically Signed On 11-13-2024 13:08:00 CDT by Echo Tapia us Austin Robertson MD ECG ORDERABLES nal Result INTERFACE SYSTEM Refer to clinic/hospital department documented in this encounter Visit Diagnoses Diagnosis COPD with exacerbation (CMS/HCC)- Primary Obstructive chronic bronchitis with exacerbation Respiratory distress Other dyspnea and respiratory abnormality Type 2 diabetes mellitus with hyperglycemia, with long-term current use of insulin (CMS/HCC) Abnormal chest CT Nonspecific (abnormal) findings on radiological and other examination of other intrathoracic organs Acute on chronic combined systolic and diastolic congestive heart failure (CMS/HCC) Acute on chronic combined systolic and diastolic heart failure Acute on chronic hypoxic respiratory failure (CMS/HCC) Acute on chronic congestive heart failure (CMS/HCC) Congestive heart failure, unspecified Acute on chronic hypoxic respiratory failure (CMS/HCC) Bipolar affective disorder (CMS/HCC) Bipolar disorder, unspecified CAD (coronary atherosclerotic disease) Coronary atherosclerosis of unspecified type of vessel, [place] or graft Chronic anticoagulation Encounter for long-term (current) use of anticoagulants 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) Chronic combined systolic and diastolic heart failure Chronic respiratory failure with hypoxia, on home O2 therapy (CMS/HCC) Closed compression fracture of body of L1 vertebra (CMS/HCC) Diabetes mellitus with hyperglycemia (CMS/HCC) Essential hypertension Unspecified essential hypertension Former smoker Personal history of tobacco use, presenting hazards to health HFrEF (heart failure with reduced ejection fraction) (CMS/HCC) L1 vertebral fracture ([facility]/HCC) Closed fracture of lumbar vertebra without mention of spinal cord injury Consolidation of left lower lobe of lung documented in this encounter Administered Medications Inactive Administered Medications - up to 3 most recent administrations Medication Order MAR Action Action Date Dose Rate Site albuterol (PROVENTIL,VENTOLIN) 2.5 mg /3 mL (0.083 %) inhalation solution 2.5 mg 2.5 mg, Inhalation, NOW THEN Q 6 HOUR RESPIRATORY, First dose on Thu11/13/24 at 2000, Until Discontinued, Routine Given 11/14/2024 1:56 AM CDT 2.5 mg Given 11/13/2024 8:28 PM CDT 2.5 mg albuterol (PROVENTIL,VENTOLIN) 2.5 mg /3 mL (0.083 %) inhalation solution 2.5 mg 2.5 mg, Inhalation, EVERY 4 HOURS PRN RESPIRATORY, Starting on Thu11/14/24 at 1030, Until Thu11/16/24 at 1544, Wheezing, Routine albuterol sulfate 90 mcg/Actuation inhaler 2 Puff 2 Puff, Inhalation, EVERY 4 HOURS PRN RESPIRATORY, Starting on Thu11/13/24 at 1718, Until Thu11/16/24 at 1544, Shortness of Breath, Routine aspirin (CARTER CHEWABLE) chewable tablet 81 mg 81 mg, Oral, DAILY, First dose on Thu11/14/24 at 0900, Until Discontinued, Routine, Previous Med: aspirin (CARTER CHEWABLE) 81 mg Tablet, Chewable - Orig Sig - Take 81 mg by mouth daily. Given 11/16/2024 8:05 AM CDT 81 mg Given 11/15/2024 8:25 AM CDT 81 mg Given 11/14/2024 8:23 AM CDT 81 mg atorvastatin (LIPITOR) tablet 40 mg 40 mg, Oral, DAILY AT BEDTIME, First dose on Thu11/13/24 at 2100, Until Discontinued, Routine, Previous Med: atorvastatin (LIPITOR) 40 mg tablet - Orig Sig - Take 40 mg by mouth daily at bedtime. Given 11/15/2024 8:26 PM CDT 40 mg Given 11/14/2024 8:28 PM CDT 40 mg Given 11/13/2024 9:06 PM CDT 40 mg azithromycin (ZITHROMAX) 500 mg in sodium chloride 0.9 % 250 mL IVPB 500 mg, IV, ONE TIME ONLY, 1 dose, On Thu11/13/24 at 1200, Stat, Antibiotic Indication: Pneumonia - Community-acquired(CAP) New 11/13/2024 12:37 PM CDT 500 mg 285 mL /hr azithromycin (ZITHROMAX) 500 mg in sodium chloride 0.9 % 250 mL IVPB 500 mg, IV, EVERY 24 HOURS (DAILY), First dose on Thu11/14/24 at 0900, Until Discontinued, Routine, Antibiotic Indication: Pneumonia - Community-acquired(CAP) New 11/15/2024 10:13 AM CDT 500 mg 285 mL /hr 11/14/2024 10:03 AM CDT 500 mg 285 mL/hr azithromycin (ZITHROMAX) tablet 500 mg 500 mg, Oral, DAILY, First dose on Thu11/16/24 at 1045, Until Discontinued, Routine, Antibiotic Indication: Pneumonia - Community-acquired(CAP) Given 11/16/2024 11:52 AM CDT 500 mg cefePIME (MAXIPIME) 2,000 mg in sodium chloride 0.9% 50 mL IVPB (MBP) 2,000 mg, IV, EVERY 8 HOURS, First dose on Thu11/14/24 at 0800, Until Discontinued, Routine, Antibiotic Indication: Pneumonia - HAP/VAP New 11/16/2024 8:17 AM CDT 2,000 mg 118 mL/hr 11/16/2024 12:18 AM CDT 2,000 mg 118 mL/hr 11/15/2024 3:45 PM CDT 2,000 mg 118 mL/hr cefTRIAXone (ROCEPHIN) 2,000 mg in sodium chloride 0.9% 50 mL IVPB (MBP) 2,000 mg, IV, ONE TIME ONLY, 1 dose, On Thu11/13/24 at 1200, Stat, Antibiotic Indication: Pneumonia - Community-acquired(CAP) New 11/13/2024 12:11 PM CDT 2,000 mg 118 mL/hr dextrose 5 % - sodium chloride 0.9 % infusion IV, at 40 mL/hr, SEE ADMIN INSTRUCTIONS, Starting on Thu11/14/24 at 0721, Until Thu11/16/24 at 1544, Routine dextrose 5 % in water 250 mL flush bag 25 mL 25 mL, IV, SEE ADMIN INSTRUCTIONS, Starting on Thu11/13/24 at 1514, Until Thu11/16/24 at 1544, Routine dextrose 50% (D50) syringe 12.5 Gram 12.5 Gram, IV, SEE ADMIN INSTRUCTIONS, Starting on Thu11/14/24 at 0721, Until Thu11/16/24 at 1544, Routine dextrose 50% (D50) syringe 25 Gram 25 Gram, IV, SEE ADMIN INSTRUCTIONS, Starting on Thu11/14/24 at 0721, Until Thu11/16/24 at 1544, Routine enoxaparin (LOVENOX) injection 40 mg 40 mg, subCUT, EVERY 24 HOURS, First dose on Thu11/13/24 at 1530, Until Discontinued, Routine, Indication: Prophylaxis of VTE, Dose to be adjusted per facility protocol? Yes Given 11/15/2024 3:28 PM CDT 40 mg Abdominal Tissue Given 11/14/2024 4:34 PM CDT 40 mg Ab domen, Right Lower Quadrant Given 11/13/2024 6:12 PM CDT 40 mg Ab domen, Left Lower Quadrant furosemide (LASIX) injection 20 mg 20 mg, IV, ONE TIME ONLY, 1 dose, On Thu11/14/24 at 1015, Routine Given 11/14/2024 11:12 AM CDT 20 mg furosemide (LASIX) tablet 80 mg 80 mg, Oral, TWO TIMES DAILY, 7 HOURS APART, First dose on Thu11/16/24 at 1200, Until Discontinued, Routine glucagon HCL 1 mg/mL injection 1 mg 1 mg, IM, SEE ADMIN INSTRUCTIONS, Starting on Thu11/14/24 at 0721, Until Thu11/16/24 at 1544, Routine HYDROcodone-acetaminophen (NORCO) 7.5-325 mg per tablet 1 Tablet 1 Tablet, Oral, EVERY 8 HOURS PRN, Starting on Thu11/13/24 at 1527, Until Thu11/16/24 at 1544, Pain, Moderate, Pain, Severe, Routine, Previous Med: HYDROcodone-acetaminophen (NORCO) 7.5-325 mg Tablet - Orig Sig - Take 1 Tablet by mouth every 8 hours as needed for Pain, Moderate or Pain, Severe. Given 11/16/2024 9:31 AM CDT 1 Tablet Given 11/15/2024 10:33 PM CDT 1 Tablet Given 11/15/2024 12:22 PM CDT 1 Tablet HYDROmorphone (PF) (DILAUDID) injection 0.3 mg 0.3 mg, IV, EVERY 4 HOURS PRN, Starting on Thu11/14/24 at 1001, Until Thu11/15/24 at 1402, Pain, Severe, Routine, On hold since Thu11/15/2024 at 0926 until manually unheld Given 11/15/2024 6:36 AM C DT 0.3 mg Given 11/15/2024 1:20 AM CDT 0.3 mg Given 11/14/2024 8:27 PM CDT 0.3 mg HYDROmorphone (PF) (DILAUDID) injection 0.3 mg 0.3 mg, IV, EVERY 4 HOURS PRN, 2 doses, Starting on Thu11/15/24 at 1402, Until Thu11/15/24 at 2014, Pain, Break-Through, Routine Given 11/15/2024 8:1 4 PM CDT 0.3 mg Given 11/15/2024 3:27 PM CDT 0.3 mg insulin glargine-yfgn injection 20 Units 20 Units, subCUT, TWO TIMES DAILY, First dose on Thu11/14/24 at 0900, Until Discontinued, Routine Given 11/16/2024 7:59 AM CDT 20 Units Abdominal Tissue Given 11/15/2024 8:23 PM CDT 20 Units Ab domen, Left Upper Quadrant Given 11/15/2024 8:19 AM CDT 20 Units Ab dominal Tissue insulin glargine-yfgn injection 22 Units 22 Units, subCUT, ONE TIME ONLY, 1 dose, On Thu11/13/24 at 1530, Stat Given 11/13/2024 5:24 PM CDT 22 Units Abdomen, Left Lower Quadrant insulin lispro (HumaLOG,ADMELOG) injection 0-12 Units 0-12 Units, subCUT, THREE TIMES DAILY WITH MEALS, First dose on Thu11/14/24 at 0800, Until Discontinued, Routine Given 11/16/2024 12:28 PM CDT 2 Units Abdominal Tissue Given 11/16/2024 7:57 AM CDT 6 Units Ab dominal Tissue Given 11/15/2024 5:49 PM CDT 10 Units Ab dominal Tissue insulin lispro (HumaLOG,ADMELOG) injection 0-6 Units 0-6 Units, subCUT, DAILY AT BEDTIME, First dose on Thu11/14/24 at 2100, Until Discontinued, Routine Given 11/15/2024 8:22 PM CDT 6 Units Abdomen, Left Lower Quadrant insulin lispro (HumaLOG,ADMELOG) injection 10 Units 10 Units, subCUT, THREE TIMES DAILY WITH MEALS, First dose on Thu11/14/24 at 0800, Until Discontinued, Routine Given 11/15/2024 12:22 PM CDT 10 Units Abdominal Tissue Given 11/15/2024 8:20 AM CDT 10 Units Ab dominal Tissue Given 11/14/2024 6:02 PM CDT 10 Units Ab domen, Right Lower Quadrant insulin lispro (HumaLOG,ADMELOG) injection 15 Units 15 Units, subCUT, THREE TIMES DAILY WITH MEALS, First dose (after last modification) on Thu11/15/24 at 1800, Until Discontinued, Routine Given 11/16/2024 12:29 PM CDT 15 Units Abdominal Tissue Given 11/16/2024 7:58 AM CDT 15 Units Ab dominal Tissue Given 11/15/2024 5:59 PM CDT 15 Units Ab dominal Tissue insulin lispro (HumaLOG,ADMELOG) injection 4 Units 4 Units, subCUT, THREE TIMES DAILY WITH MEALS, First dose on Thu11/13/24 at 1700, Until Discontinued, Routine Given 11/13/2024 5:25 PM CDT 4 Units Abdomen, Left Lower Quadrant insulin lispro (HumaLOG,ADMELOG) injection 4 Units 4 Units, subCUT, ONE TIME ONLY, 1 dose, On Thu11/13/24 at 2045, Routine Given 11/13/2024 9:07 PM CDT 4 Units Abdomen, Left Upper Quadrant insulin lispro (HumaLOG,ADMELOG) injection 4 Units 4 Units, subCUT, ONE TIME ONLY, 1 dose, On Thu11/14/24 at 0215, Routine Given 11/14/2024 2:24 AM CDT 4 Units Arm, Right Upper iopamidoL (ISOVUE-300) 61% injection (drawn from multi-use bulk pack) 100 mL 100 mL, IV, INTRA-PROCEDURE ONCE, 1 dose, Starting on Thu11/13/24 at 1145, Until Thu11/13/24 at 1146, Routine Contrast Given 11/13/2024 11:46 AM CDT 100 mL ipratropium-albuteroL (DUONEB) 0.5 mg-3 mg(2.5 mg base)/3 mL inhalation solution 3 mL 3 mL, Inhalation, ONE TIME ONLY RESPIRATORY, 1 dose, On Thu11/13/24 at 1015, Routine Given 11/13/2024 10:30 AM CDT 3 mL isosorbide mononitrate (IMDUR) SR 24 hour tablet 30 mg 30 mg, Oral, DAILY, First dose on Thu11/14/24 at 0900, Until Discontinued, Routine, Previous Med: isosorbide mononitrate (IMDUR) 30 mg Extended Release 24 hour tablet - Orig Sig - TAKE 1 TABLET BY MOUTH EVERY DAY Given 11/16/2024 8:04 AM CDT 30 mg Given 11/15/2024 8:26 AM CDT 30 mg Given 11/14/2024 8:24 AM CDT 30 mg Lidocaine 4 % topical patch 1 Patch 1 Patch, Topical, DAILY, First dose on Thu11/16/24 at 1100, Until Discontinued, Routine methylPREDNISolone sodium succinate (SOLU-Medrol) 125 mg in sterile water 2 mL injection 125 mg, IV, ONE TIME ONLY, 1 dose, On Thu11/13/24 at 1045, Routine Given 11/13/2024 11:02 AM CDT 125 mg methylPREDNISolone sodium succinate (SOLU-Medrol) 40 mg in sterile water 1 mL injection 40 mg, IV, ONE TIME ONLY, 1 dose, On Thu11/15/24 at 1415, Stat Given 11/15/2024 3:27 PM CDT 40 mg methylPREDNISolone sodium succinate (SOLU-Medrol) 60 mg in sterile water 0.96 mL injection 60 mg, IV, ONE TIME ONLY, 1 dose, On Thu11/14/24 at 1015, Stat Given 11/14/2024 11:10 AM CDT 60 mg metoprolol succinate (TOPROL XL) SR 24 hour tablet 25 mg 25 mg, Oral, DAILY, First dose on Thu11/14/24 at 0900, Until Discontinued, Routine, Previous Med: metoprolol succinate (TOPROL XL) 25 mg Extended Release 24 hour tablet - Orig Sig - Take 1 Tablet (25 mg) by mouth daily. Given 11/16/2024 8:04 AM CDT 25 mg Given 11/15/2024 8:25 AM CDT 25 mg Given 11/14/2024 8:23 AM CDT 25 mg morphine 4 mg/mL injection 2 mg 2 mg, IV, ONE TIME ONLY, 1 dose, On Thu11/13/24 at 2045, Routine Given 11/13/2024 9:06 PM CDT 2 mg morphine 4 mg/mL injection 4 mg 4 mg, IV, ONE TIME ONLY, 1 dose, On Thu11/13/24 at 1115, Routine Given 11/13/2024 11:14 AM CDT 4 mg naloxone (NARCAN) 0.4 mg/mL injection 0.1-0.4 mg 0.1-0.4 mg, IV, SEE ADMIN INSTRUCTIONS, Starting on Thu11/13/24 at 1514, Until Thu11/16/24 at 1544, Routine OLANZapine (ZyPREXA) tablet 10 mg 10 mg, Oral, DAILY AT BEDTIME, First dose on Thu11/13/24 at 2100, Until Discontinued, Routine, Previous Med: OLANZapine (ZyPREXA) 10 mg tablet - Orig Sig - Take 10 mg by mouth daily at bedtime. Given 11/15/2024 8:26 PM CDT 10 mg Given 11/14/2024 8:29 PM CDT 10 mg Given 11/13/2024 9:06 PM CDT 10 mg ondansetron (ZOFRAN) 4 mg/2 mL injection 4 mg 4 mg, IV, ONE TIME ONLY, 1 dose, On Thu11/13/24 at 1115, Routine Given 11/13/2024 11:14 AM CDT 4 mg ondansetron (ZOFRAN) 4 mg/2 mL injection 4 mg 4 mg, IV, EVERY 6 HOURS PRN, Starting on Thu11/13/24 at 1515, Until Thu11/16/24 at 1544, Nausea/Emesis, Routine oxyCODONE (ROXICODONE) tablet 5 mg 5 mg, Oral, ONE TIME ONLY, 1 dose, On Thu11/16/24 at 0215, Routine Given 11/16/2024 2:28 AM CDT 5 mg oxyCODONE-acetaminophen (PERCOCET) 5-325 mg per tablet 1 Tablet 1 Tablet, Oral, ONE TIME ONLY, 1 dose, On Thu11/14/24 at 0100, Routine Given 11/14/2024 1:01 AM CDT 1 Tablet predniSONE (DELTASONE) tablet 40 mg 40 mg, Oral, DAILY WITH BREAKFAST, 3 doses, First dose on Thu11/16/24 at 0800, Last dose on Thu11/18/24 at 0800, Routine Given 11/16/2024 8:04 AM CDT 40 mg ranolazine ER (RANEXA) SR 12 hour tablet 500 mg 500 mg, Oral, EVERY 12 HOURS, First dose on Thu11/13/24 at 2100, Until Discontinued, Routine, Previous Med: ranolazine ER (RANEXA) 500 mg Extended Release 12 hour tablet - Orig Sig - Take 1 Tablet (500 mg) by mouth every 12 hours. Given 11/16/2024 8:02 AM CDT 500 mg Given 11/15/2024 8:26 PM CDT 500 mg Given 11/15/2024 8:25 AM CDT 500 mg sacubitriL-valsartan (ENTRESTO) 24-26 mg tablet 1 Tablet 1 Tablet, Oral, TWO TIMES DAILY, First dose on Thu11/13/24 at 2100, Until Discontinued, Routine, Previous Med: sacubitriL-valsartan (ENTRESTO) 24-26 mg Tablet - Orig Sig - Take 1 Tablet by mouth 2 times daily. Given 11/16/2024 8:02 AM CDT 1 Tabl et Given 11/15/2024 8:26 PM CDT 1 Tablet Given 11/15/2024 8:25 AM CDT 1 Tablet sodium chloride 0.9 % bolus solution 1,000 mL 1,000 mL, IV, ONE TIME ONLY, 1 dose, On Thu11/13/24 at 1200, at 999 mL/hr, Administer over 60 Minutes, Routine New Bag 11/13/2024 12:10 PM CDT 1,000 mL 999 mL/hr sodium chloride 0.9 % flush bag 25 mL 25 mL, IV, SEE ADMIN INSTRUCTIONS, Starting on 11/13/24 at 1514, Until Thu11/16/24 at 1544, Routine, On hold since Thu11/14/2024 at 1002 until manually unheld sodium chloride 0.9 % infusion IV, at 75 mL/hr, CONTINUOUS, Starting on Thu11/13/24 at 1530, Until Thu11/14/24 at 1529, Routine Bag Switched 11/14/2024 7:39 AM CDT 75 mL/hr New Bag 11/13/2024 5:33 PM CDT 75 mL/hr sodium chloride flush injection 10 mL 10 mL, IV, TWO TIMES DAILY, First dose on Thu11/13/24 at 1200, Until Discontinued, Routine Given 11/16/2024 8:05 AM CDT 10 mL Given 11/15/2024 8:16 PM CDT 10 mL Given 11/15/2024 8:22 AM CDT 10 mL sodium chloride flush injection 10 mL 10 mL, IV, SEE ADMIN INSTRUCTIONS, Starting on Thu11/13/24 at 1514, Until Thu11/16/24 at 1544, Routine umeclidinium (INCRUSE ELLIPTA) 62.5 mcg/actuation inhaler 1 Puff 1 Puff, Inhalation, DAILY RESPIRATORY, First dose on Thu11/14/24 at 0800, Until Discontinued, Routine warfarin (COUMADIN) tablet 7.5 mg 7.5 mg, Oral, DAILY LATE, First dose (after last modification) on Thu11/13/24 at 1730, Until Discontinued, Routine, Previous Med: warfarin (COUMADIN) 6 mg tablet - Orig Sig - Take 2 Tablets (12 mg) by mouth late in the day. , Indication: Other (see comments), Anticoagulant Indication: history of pe, Goal INR: 2 to 3 Given 11/15/2024 5:49 PM CDT 7.5 mg Given 11/14/2024 6:02 PM CDT 7.5 mg Given 11/13/2024 6:35 PM CDT 7.5 mg zinc OXIDE-cod liver oil (DESITIN) 40 % topical paste Topical, SEE ADMIN INSTRUCTIONS, Starting on 11/13/24 at 1801, Until Thu11/16/24 at 1544, Routine documented in this encounter Active and Recently Administered Medications Times are shown in CDT. Scheduled Medication Order 11/14/2024 11/15/2024 11/16/2024 albuterol (PROVENTIL,VENTOLIN) 2.5 mg /3 mL (0.083 %) inhalation solution 2.5 mg (CANCELED) 2.5 mg, Inhalation, NOW THEN Q 6 HOUR RESPIRATORY, First dose on Thu11/13/24 at 2000, Until Discontinued, Routine 0156 (Given - Provider: Félix Person RCP)0756 (Not Given - Provider: Sarita Hale RCP - Reason: Patient condition - Comment: no wheezes present) aspirin (CARTER CHEWABLE) chewable tablet 81 mg 81 mg, Oral, DAILY, First dose on Thu11/14/24 at 0900, Until Discontinued, Routine, Previous Med: aspirin (CARTER CHEWABLE) 81 mg Tablet, Chewable - Orig Sig - Take 81 mg by mouth daily. 822 (Given - Provider: Nika Meadows RN) 824 (Given - Provider: Jean Smith LPN) 804 (Given - Provider: Jean Smith LPN) atorvastatin (LIPITOR) tablet 40 mg 40 mg, Oral, DAILY AT BEDTIME, First dose on Thu11/13/24 at 2100, Until Discontinued, Routine, Previous Med: atorvastatin (LIPITOR) 40 mg tablet - Orig Sig - Take 40 mg by mouth daily at bedtime. 2027 (Given - Provider: Tiffanie Schwarz RN) 2025 (Given - Provider: Elise Fields RN) azithromycin (ZITHROMAX) 500 mg in sodium chloride 0.9 % 250 mL IVPB (CANCELED) 500 mg, IV, EVERY 24 HOURS (DAILY), First dose on Thu11/14/24 at 0900, Until Discontinued, Routine, Antibiotic Indication: Pneumonia - Community-acquired(CAP ) 1003 (New Bag - Provider: Nika Meadows RN)1103 (Stopped - Provider: Nika Meadows RN) 1013 (New Bag - Provider: Jean Smith LPN - Comment: to space 24 hours)1113 (Stopped - Provider: Jean Smith LPN) 1000 (Canceled Entry - Provider: Jean Smith LPN - Comment: to space 24 hours) azithromycin (ZITHROMAX) tablet 500 mg 500 mg, Oral, DAILY, First dose on Thu11/16/24 at 1045, Until Discontinued, Routine, Antibiotic Indication: Pneumonia - Community-acquired(CAP ) 1152 (Given - Provid er: Jean Smith LPN - Comment: waiting on pharmacy) cefePIME (MAXIPIME) 2,000 mg in sodium chloride 0.9% 50 mL IVPB (MBP) 2,000 mg, IV, EVERY 8 HOURS, First dose on Thu11/14/24 at 0800, Until Discontinued, Routine, Antibiotic Indication: Pneumonia - HAP/VAP 0832 (New Bag - Provider: Nika Meadows RN)0902 (Stopped - Provider: Nika Meadows RN)1633 (New Bag - Provider: Nika Meadows RN)1703 (Stopped - Provider: Nika Meadows RN)2339 (New Bag - Provider: Tiffanie Schwarz RN) 0009 (Stopped - Provider: Tiffanie Schwarz RN)0859 (New Bag - Provider: Jean Smith LPN)0929 (Stopped - Provider: Jean Smith LPN)1545 (New Bag - Provider: Jean Smith LPN)1615 (Stopped - Provider: Jean Smith LPN) 0018 (New Bag - Provider: Elise Fields RN)0048 (Stopped - Provider: Elise Fields RN)0817 (New Bag - Provider: Jean Smith LPN)0847 (Stopped - Provider: Jean Smith LPN) dextrose 5 % - sodium chloride 0.9 % infusion IV, at 40 mL/hr, SEE ADMIN INSTRUCTIONS, Starting on Thu11/14/24 at 0721, Until Thu11/16/24 at 1544, Routine dextrose 5 % in water 250 mL flush bag 25 mL 25 mL, IV, SEE ADMIN INSTRUCTIONS, Starting on Thu11/13/24 at 1514, Until Thu11/16/24 at 1544, Routine dextrose 50% (D50) syringe 12.5 Gram 12.5 Gram, IV, SEE ADMIN INSTRUCTIONS, Starting on Thu11/14/24 at 0721, Until Thu11/16/24 at 1544, Routine dextrose 50% (D50) syringe 25 Gram 25 Gram, IV, SEE ADMIN INSTRUCTIONS, Starting on Thu11/14/24 at 0721, Until Thu11/16/24 at 1544, Routine enoxaparin (LOVENOX) injection 40 mg 40 mg, subCUT, EVERY 24 HOURS, First dose on Thu11/13/24 at 1530, Until Discontinued, Routine, Indication: Prophylaxis of VTE, Dose to be adjusted per facility protocol? Yes 1634 (Given - Provider: Nika Meadows RN) 1528 (Given - Provider: Jean Smith LPN - Comment: To space 24 hours) fluticasone furoate-vilanteroL (BREO ELLIPTA) 100-25 mcg/dose inhaler 1 Puff 1 Puff, Inhalation, DAILY RESPIRATORY, First dose on Thu11/14/24 at 0800, Until Discontinued, Routine, Previous Med: budesonide 160 mcg-glycopyr 9 mcg-formot 4.8 mcg/actuation HFA inhaler - Orig Sig - Take 2 Puffs by inhalation 2 times daily. 0800 (Refused - Provider: Nika Meadows RN) 0821 (Refused - Provider: Jean Smith LPN) 0800 (Refused - Provider: Jean Smith LPN) furosemide (LASIX) injection 20 mg (COMPLETED) 20 mg, IV, ONE TIME ONLY, 1 dose, On Thu11/14/24 at 1015, Routine 1112 (Given - Provider: Nika Meadows RN) furosemide (LASIX) tablet 80 mg 80 mg, Oral, TWO TIMES DAILY, 7 HOURS APART, First dose on Thu11/16/24 at 1200, Until Discontinued, Routine 1206 (Refused - Provider: Jean Smith LPN) glucagon HCL 1 mg/mL injection 1 mg 1 mg, IM, SEE ADMIN INSTRUCTIONS, Starting on Thu11/14/24 at 0721, Until Thu11/16/24 at 1544, Routine insulin glargine-yfgn injection 20 Units 20 Units, subCUT, TWO TIMES DAILY, First dose on Thu11/14/24 at 0900, Until Discontinued, Routine 0815 (Given - Provider: Nika Meadows RN)2030 (Given - Provider: Tiffanie Schwarz RN) 0819 (Given - Provider: Jean Smith LPN - Comment: BS 185)2022 (Given - Provider: Elise Fields RN - Comment: POC:486mg/dl) 0759 (Given - Provider: Jean Smith LPN) insulin lispro (HumaLOG,ADMELOG) injection 0-12 Units 0-12 Units, subCUT, THREE TIMES DAILY WITH MEALS, First dose on Thu11/14/24 at 0800, Until Discontinued, Routine 0816 (Given - Provider: Nika Meadows RN - Comment: blood sugar 246)1232 (Given - Provider: Nika Meadows RN - Comment: BS 310)180 (Given - Provider: Nika Meadows RN - Comment: BS [phone] (Given-See Override - Provider: Tiffanie Schwarz RN) 0820 (Given - Provider: Jean Smith LPN - Comment: bs 185 base 10 plus 2 correctional for 12 units total)1200 (Not Given - Provider: Jean Smith LPN - Reason: Lab results / vitals - Comment: bs [phone] (Given - Provider: Jean Smith LPN - Comment: BS 394 15 base and 10 correctional for 25 units total) 0757 (Given - Provider: Jean Smith LPN - Comment: bs 252 15 base and 6 correcectional for 21 units total)1228 (Given - Provider: Jean Smith LPN - Comment: BS 186 15 base plus 2 correctional for 17 units total) insulin lispro (HumaLOG,ADMELOG) injection 0-6 Units 0-6 Units, subCUT, DAILY AT BEDTIME, First dose on Thu11/14/24 at 2100, Until Discontinued, Routine 2100 (Canceled Entry - Provider: Tiffanie Schwarz RN) 2021 (Given - Provider: Elise Fields RN - Comment: POC:486mg/dl) insulin lispro (HumaLOG,ADMELOG) injection 10 Units (CANCELED) 10 Units, subCUT, THREE TIMES DAILY WITH MEALS, First dose on Thu11/14/24 at 0800, Until Discontinued, Routine 0816 (Given - Provider: Nika Meadows RN)1231 (Given - Provider: Nika Meadows RN)1802 (Given - Provider: Nika Meadows RN) 0820 (Given - Provider: Jean Smith LPN - Comment: bs 185 base 10 plus 2 correctional for 12 units total)1222 (Given - Provider: Jean Smith LPN - Comment: bs [phone] (Canceled Entry - Provider: Jean Smith LPN - Comment: physician changed base to 15) insulin lispro (HumaLOG,ADMELOG) injection 15 Units 15 Units, subCUT, THREE TIMES DAILY WITH MEALS, First dose (after last modification) on Thu11/15/24 at 1800, Until Discontinued, Routine 1759 (Given - Provider: Jean Smith LPN - Comment: BS 394 15 base and 10 correctional for 25 units total) 0758 (Given - Provider: Jean Smith LPN)1229 (Given - Provider: Jean Smith LPN) insulin lispro (HumaLOG,ADMELOG) injection 4 Units (COMPLETED) 4 Units, subCUT, ONE TIME ONLY, 1 dose, On Thu11/14/24 at 0215, Routine 0224 (Given - Provider: Carlos Camargo RN) isosorbide mononitrate (IMDUR) SR 24 hour tablet 30 mg 30 mg, Oral, DAILY, First dose on Thu11/14/24 at 0900, Until Discontinued, Routine, Previous Med: isosorbide mononitrate (IMDUR) 30 mg Extended Release 24 hour tablet - Orig Sig - TAKE 1 TABLET BY MOUTH EVERY DAY 0824 (Given - Provider: Nika Meadows RN) 0826 (Given - Provider: Jean Smith LPN) 0804 (Given - Provider: Jean Smith LPN) Lidocaine 4 % topical patch 1 Patch 1 Patch, Topical, DAILY, First dose on Thu11/16/24 at 1100, Until Discontinued, Routine 1100 (Refused - Provider: Jean Smith LPN) methylPREDNISolone sodium succinate (SOLU-Medrol) 40 mg in sterile water 1 mL injection (COMPLETED) 40 mg, IV, ONE TIME ONLY, 1 dose, On Thu11/15/24 at 1415, Stat 1527 (Given - Provider: Jean Smith LPN) methylPREDNISolone sodium succinate (SOLU-Medrol) 60 mg in sterile water 0.96 mL injection (COMPLETED) 60 mg, IV, ONE TIME ONLY, 1 dose, On Thu11/14/24 at 1015, Stat 1110 (Given - Provider: Nika Meadows RN) metoprolol succinate (TOPROL XL) SR 24 hour tablet 25 mg 25 mg, Oral, DAILY, First dose on Thu11/14/24 at 0900, Until Discontinued, Routine, Previous Med: metoprolol succinate (TOPROL XL) 25 mg Extended Release 24 hour tablet - Orig Sig - Take 1 Tablet (25 mg) by mouth daily. 822 (Given - Provider: Nika Meadows RN) 824 (Given - Provider: Jean Smith LPN) 803 (Given - Provider: Jean Smith LPN) naloxone (NARCAN) 0.4 mg/mL injection 0.1-0.4 mg 0.1-0.4 mg, IV, SEE ADMIN INSTRUCTIONS, Starting on Thu11/13/24 at 1514, Until Thu11/16/24 at 1544, Routine OLANZapine (ZyPREXA) tablet 10 mg 10 mg, Oral, DAILY AT BEDTIME, First dose on Thu11/13/24 at 2100, Until Discontinued, Routine, Previous Med: OLANZapine (ZyPREXA) 10 mg tablet - Orig Sig - Take 10 mg by mouth daily at bedtime. 2028 (Given - Provider: Tiffanie Schwarz RN) 2025 (Given - Provider: Elise Fields RN) oxyCODONE (ROXICODONE) tablet 5 mg (COMPLETED) 5 mg, Oral, ONE TIME ONLY, 1 dose, On Thu11/16/24 at 0215, Routine 0228 (Given - Provid er: Elise Fields RN) oxyCODONE-acetaminophe n (PERCOCET) 5-325 mg per tablet 1 Tablet (COMPLETED) 1 Tablet, Oral, ONE TIME ONLY, 1 dose, On Thu11/14/24 at 0100, Routine 0101 (Given - Provider: Carlos Camargo RN) predniSONE (DELTASONE) tablet 40 mg 40 mg, Oral, DAILY WITH BREAKFAST, 3 doses, First dose on Thu11/16/24 at 0800, Last dose on Thu11/18/24 at 0800, Routine 0804 (Given - Provid er: Jean Smith LPN) ranolazine ER (RANEXA) SR 12 hour tablet 500 mg 500 mg, Oral, EVERY 12 HOURS, First dose on 11/13/24 at 2100, Until Discontinued, Routine, Previous Med: ranolazine ER (RANEXA) 500 mg Extended Release 12 hour tablet - Orig Sig - Take 1 Tablet (500 mg) by mouth every 12 hours. 08 (Given - Provider: Nika Meadows RN)2028 (Given - Provider: Tiffanie Schwarz RN) 824 (Given - Provider: Jean Smith LPN)2025 (Given - Provider: Elise Fields RN) 08 (Given - Provider: Jean Smith LPN) sacubitriL-valsartan (ENTRESTO) 24-26 mg tablet 1 Tablet 1 Tablet, Oral, TWO TIMES DAILY, First dose on Thu11/13/24 at 2100, Until Discontinued, Routine, Previous Med: sacubitriL-valsartan (ENTRESTO) 24-26 mg Tablet - Orig Sig - Take 1 Tablet by mouth 2 times daily. 08 (Given - Provider: Nika Meadows RN)2027 (Given - Provider: Tiffanie Schwarz RN) 824 (Given - Provider: Jean Smith LPN)2025 (Given - Provider: Elise Fields RN) 08 (Given - Provider: Jean Smith LPN) sodium chloride 0.9 % flush bag 25 mL 25 mL, IV, SEE ADMIN INSTRUCTIONS, Starting on Thu11/13/24 at 1514, Until Thu11/16/24 at 1544, Routine, On hold since Thu11/14/2024 at 1002 until manually unheld 1002 (Held by Provider - Provider: Curly Loaiza, - Reason: Lab results / vitals) 1544 (Order Unhold - Provider: PROVIDER, DISCHARGE PATIENT) sodium chloride flush injection 10 mL 10 mL, IV, TWO TIMES DAILY, First dose on Thu11/13/24 at 1200, Until Discontinued, Routine 0833 (Given - Provider: Nika Meadows RN)2039 (Given - Provider: Tiffanie Schwarz RN) 08 (Given - Provider: Jean Smith LPN)2015 (Given - Provider: Elise Fields RN) 08 (Given - Provider: Jean Smith LPN) sodium chloride flush injection 10 mL 10 mL, IV, SEE ADMIN INSTRUCTIONS, Starting on 11/13/24 at 1514, Until Thu11/16/24 at 1544, Routine umeclidinium (INCRUSE ELLIPTA) 62.5 mcg/actuation inhaler 1 Puff 1 Puff, Inhalation, DAILY RESPIRATORY, First dose on Thu11/14/24 at 0800, Until Discontinued, Routine 0800 (Refused - Provider: Nika Meadows RN) 08 (Refused - Provider: Jean Smith LPN) 08 (Refused - Provider: Jean Smith LPN) warfarin (COUMADIN) tablet 7.5 mg 7.5 mg, Oral, DAILY LATE, First dose (after last modification) on Thu11/13/24 at 1730, Until Discontinued, Routine, Previous Med: warfarin (COUMADIN) 6 mg tablet - Orig Sig - Take 2 Tablets (12 mg) by mouth late in the day. , Indication: Other (see comments), Anticoagulant Indication: history of pe, Goal INR: 2 to 3 1802 (Given - Provider: Nika Meadows RN) 1749 (Given - Provider: Jean Smith LPN) zinc OXIDE-cod liver oil (DESITIN) 40 % topical paste Topical, SEE ADMIN INSTRUCTIONS, Starting on 11/13/24 at 1801, Until Thu11/16/24 at 1544, Routine Continuous Medication Order 11/14/2024 11/15/2024 11/16/2024 sodium chloride 0.9 % infusion (CANCELED) IV, at 75 mL/hr, CONTINUOUS, Starting on 11/13/24 at 1530, Until Thu11/14/24 at 1529, Routine 0739 (Bag Switched - Provider: Nika Meadows RN)1543 (Stopped - Provider: Nika Meadows RN - Comment: [Order ends at this time. Document the following action when infusion is complete: Stopped]) PRN Medication Order 11/14/2024 11/15/2024 11/16/2024 albuterol (PROVENTIL,VENTOLIN) 2.5 mg /3 mL (0.083 %) inhalation solution 2.5 mg 2.5 mg, Inhalation, EVERY 4 HOURS PRN RESPIRATORY, Starting on Thu11/14/24 at 1030, Until Thu11/16/24 at 1544, Wheezing, Routine albuterol sulfate 90 mcg/Actuation inhaler 2 Puff 2 Puff, Inhalation, EVERY 4 HOURS PRN RESPIRATORY, Starting on Thu11/13/24 at 1718, Until Thu11/16/24 at 1544, Shortness of Breath, Routine benzonatate (TESSALON) capsule 100 mg 100 mg, Oral, EVERY 4 HOURS PRN, Starting on Thu11/13/24 at 1529, Until Thu11/16/24 at 1544, Cough, Routine, Previous Med: benzonatate (TESSALON) 100 mg capsule - Orig Sig - Take 1 Capsule (100 mg) by mouth every 4 hours as needed for Cough. HYDROcodone-acetaminophe n (NORCO) 7.5-325 mg per tablet 1 Tablet 1 Tablet, Oral, EVERY 8 HOURS PRN, Starting on Thu11/13/24 at 1527, Until Thu11/16/24 at 1544, Pain, Moderate, Pain, Severe, Routine, Previous Med: HYDROcodone-acetaminophe n (NORCO) 7.5-325 mg Tablet - Orig Sig - Take 1 Tablet by mouth every 8 hours as needed for Pain, Moderate or Pain, Severe. 0842 (Given - Provider: Nika Meadows RN)1801 (Given - Provider: Nika Meadows RN) 0412 (Given - Provider: Tiffanie Schwarz RN)1222 (Given - Provider: Jaen Smith LPN)2004 (Refused - Provider: Elise Fields RN - Comment: RTN to omnicell.)587 (Given - Provider: Elise Fields RN) 0931 (Given - Provider: Jean Smith LPN) HYDROmorphone (PF) (DILAUDID) injection 0.3 mg (CANCELED) 0.3 mg, IV, EVERY 4 HOURS PRN, Starting on Thu11/14/24 at 1001, Until Thu11/15/24 at 1402, Pain, Severe, Routine, On hold since Thu11/15/2024 at 0926 until manually unheld 1108 (Given - Provider: Nika Meadows RN)1510 (Given - Provider: Nika Meadows RN)2027 (Given - Provider: Tiffanie Schwarz RN) 0120 (Given - Provider: Tiffanie Schwarz RN)0636 (Given - Provider: Tiffanie Schwarz RN)0926 (Held by Provider - Provider: Curly Loaiza DO - Reason: Lab results / vitals)1402 (Order Unhold - Provider: Curly Loaiza DO) HYDROmorphone (PF) (DILAUDID) injection 0.3 mg (COMPLETED) 0.3 mg, IV, EVERY 4 HOURS PRN, 2 doses, Starting on Thu11/15/24 at 1402, Until Thu11/15/24 at 2014, Pain, Break-Through, Routine 1527 (Given - Provider: Jean Smith LPN)2013 (Given - Provider: Elise Fields RN) nitroglycerin (NITROSTAT) tablet 0.4 mg 0.4 mg, Sublingual, EVERY 5 MINUTES PRN, Starting on Thu11/13/24 at 1528, Until Thu11/16/24 at 1544, Chest Pain, Routine, Previous Med: nitroglycerin (NITROSTAT) 0.4 mg Tablet, Sublingual - Orig Sig - Place 0.4 mg under tongue. ondansetron (ZOFRAN) 4 mg/2 mL injection 4 mg 4 mg, IV, EVERY 6 HOURS PRN, Starting on Thu11/13/24 at 1515, Until Thu11/16/24 at 1544, Nausea/Emesis, Routine documented in this encounter Additional Health Concerns Active Problems Noted Date Diagnosed Date Heart Failure Problem 05/12/2024 Infection Onset Date Last Indicated Resolved Time R/O Respiratory 11/13/2024 11/13/2024 11/13/2024 1 2:06 PM CDT documented as of this encounter Care Teams Gauge And Weigh Machine Adjuster Relationship Specialty Start Date End Date Delta Wade MD [address] [address] PCP - General Family Practice 03/25/24 documented as of this encounter
--- OUTSIDE RECORDS SUMMARY | 2024-11-17 00:54 | XMS_ITS | Encounter Summary ---
Author Organization [facility] Address [address] [place] [address] Care Team Providers Care Rn Diabetes Educator Name Role Phone Delta Wade MD Primary Care Provider [phone] Encounter Details Date Type Department Care Team ([facility] st Contact Info) Description 06/16/2024 Telephone [facility] Ophthalmology [address] [place] [address] Eduardo Craven MD [address] [place] [address] Social History Tobacco Use Types Packs/Day [...] often do you attend chur ch or christianity services? 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 [address] Gricel Mcgovern PA [address] [place] [address] documented as of this encounter [...] 11/11/2024 11/11/2024 11/11/2024 11:0 6 PM CDT R/O Respiratory 11/13/2024 11/13/2024 11/13/2024 1 2:06 PM CDT documented as of this encounter Care Teams Rn Diabetes Educator Relationship Specialty Start Date End Date Delta Wade MD [address] [address] PCP - General Family Practice 03/25/24 documented as of this encounter
--- OUTSIDE RECORDS SUMMARY | 2024-11-17 00:54 | XMS_ITS | Encounter Summary ---
Author Organization [facility] Address [address] [place] [address] Care Team Providers Care Paddle Dyeing Machine Operator Name Role Phone Delta Wade MD Primary Care Provider [phone] Reason for Visit * Reason Onset Date Comments Anticoagulation 11/15/2024 Encounter Details Date Type Department Care Team ([facility] st Contact Info) Description 11/15/2024 Telephone [facility] [address] [place] [address] Veronika Yusuf, RN [address] [place] [address] Anticoagulation Social History Tobacco Use Types Packs/Day Years [...] often do you attend chur ch or buddhist services? More than 4 times per year 06/13/2019 Do you belong to any clubs o r organizations such as quaker groups, unions, fraternal or athletic groups, or [...] worry about transportation for future doctor visits, chicken picker medication, etc.? 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 documented in this encounter Plan of Treatment Upcoming Encounters Date Type Department Care Team (Late st Contact Info) Description 01/12/2025 1:40 PM CDT Office Visit [facility] Cardiology [facility] [address] [facility] [address] [place] [address] Tresa Stockton, [facility] [address] [facility] [address] [place] [phone] 04/19/2025 10:30 AM SENIOR WAREHOUSE CLERK Office Visit [facility] Endocrinology [facility] [address] [facility] [address] [place] [address] James Lee MD [address] [place], [place] [address] Gricel Mcgovern PA [address] [facility] [address] [place] [phone] documented as of this encounter Goals Goal Patient Goal Type Associated Problems Recent Progress Patient-Stated? Author Heart Failure Goal Care Plan Heart Failure Problem No Latonya Anguiano LPN documented as of this encounter Visit Diagnoses Not on filedocumented in this encounter Additional Health Concerns Active Problems Noted Date Diagnosed Date Heart Failure Problem 05/12/2024 documented as of this encounter Care Teams Paddle Dyeing Machine Operator Relationship Specialty Start Date End Date Delta Wade MD 5 [facility] [address] [place] [address] PCP - General Family Practice 03/25/24 documented as of this encounter
--- OUTSIDE RECORDS SUMMARY | 2024-11-17 00:54 | XMS_ITS ---
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
--- OUTSIDE RECORDS SUMMARY | 2024-11-17 00:54 | XMS_ITS | Encounter Summary ---
Author Organization [facility] Address [address] [place] [address] Care Team Providers Care Collections Assistant Name Role Phone Delta Wade MD Primary Care Provider [phone] Reason for Visit * Reason Comments Hospital Follow Up Encounter Details Date Type Department Care Team ([facility] st Contact Info) Description 05/13/2024 Telephone [facility] Medicine [place] [address] [place] [address] Kay Lima, [facility] [address] [place] [address] Hospital Follow Up Social History [...] How often do you attend chur or samaritan services? 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 Could not leave voicemail. If patient calls back please schedule for hospital follow up appointment for the next opening spot. Can be vv if patient cannot travel to clinic. ENTRY PROFESSIONAL * Telephone Encounter - Gypsy Gerber - 05/13/2024 12:02 PM CST Copied from [facility] #[id number]. Topic: Reschedule/Cancel Appointment/Late Arrival >> May 13, [...] hospital discharge? 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 [address] Gricel Mcgovern PA [address] [place] [address] documented as of this encounter Goals Goal [...] Resolved Time R/O COVID-19 05/13/2024 05/13/2024 05/14/2024 4:1 5 AM CARPENTRY PROFESSIONAL R/O Respiratory 06/30/2024 06/30/2024 06/30/2024 1 0:36 [...] documented as of this encounter Care Teams Collections Assistant Relationship Specialty Start Date End Date Delta Wade MD [address] [address] PCP - General Family Practice 03/25/24 documented as of this encounter
--- OUTSIDE RECORDS SUMMARY | 2024-11-17 00:55 | XMS_ITS | Encounter Summary ---
Author Organization [facility] Address [address] Gonzalez: Epic Prelude ADT [place] [address] Care Team Providers Care Farm Equipment Operator Name Role Phone Delta Wade MD Primary Care Provider [phone] Encounter Details Date Type Department Care Team [...] Never 06/13/2019 How often do you attend [facility] or holiness services? More than 4 times [...] worry about transportation for future doctor visits, potato picker medication, etc.? 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 [place], [place] [address] Gricel Mcgovern PA [address] [place] [address] documented as of this encounter Goals Goal Patient Goal Type Associated Problems Recent Progress Patient-Stated? Author Heart Failure Goal Care Plan Heart Failure Problem No Latonya Anguiano LPN documented as of this encounter Visit Diagnoses Not on filedocumented in this encounter Additional Health Concerns Active Problems Noted Date Diagnosed Date Heart Failure Problem 05/12/2024 documented as of this encounter Care Teams Farm Equipment Operator Relationship Specialty Start Date End Date Delta Wade MD [address] [phone] PCP - General Family Practice 03/25/24 documented as of this encounter
--- OUTSIDE RECORDS SUMMARY | 2024-11-17 00:55 | XMS_ITS | Clinical Summary ---
Author Organization [facility] Address [address] [place] [address] Phone Care Team Providers Care Casing Puller Name Role Phone Delta Wade MD Primary Care Provider [phone] Allergies Active Allergy Reactions Criticality Noted Date [...] complication, without long-term current use of insulin ([facility]) Use to test blood glucose up to TID PRN symptoms. 1 Each 023 Active blood sugar diagnostic StripIndication s:Type 2 diabetes mellitus without complication, without long-term current use of insulin ([facility]) Use to test blood glucose up to QID PRN symptoms. 100 Each 11 023 Active naloxone (NARCAN) 4 mg/spray [place], Non-Aerosol EMERGENCY USE ONLY: Administer 1 spray (4 mg) in one nostril one time. May repeat in alternating nostrils every 2-3 min until responsive or EMS arrives. 2 Each 3 023 Active portable oxygenIndicatio ns:Chronic obstructive pulmonary disease, unspecified COPD type ([facility]),Oxyge n dependent Face to Face completed within [...] by mouth daily with breakfast. 4 Tablet Active azithromycin (ZITHROMAX) 500 mg tablet Take 1 Tablet (500 mg) by mouth daily. 2 Tablet Active cefdinir (OMNICEF) 300 mg capsule Take 1 Capsule (300 mg) by mouth every 12 hours for 5 days. 10 Capsule 2024 Active lidocaine (LIDODERM) 5 % Adhesive Patch, Medicated Apply 1 Patch to affected area every 24 hours. 30 Patch 025 2024 Active TechLITE Pen Needle 29 [...] Adhesive Patch, Medicated Back pain 6 Patch 2024 Discontinued doxycycline hyclate (VIBRAMYCIN) 100 mg tablet Take 1 Tablet (100 mg) by mouth 2 times daily. 20 Tablet 2024 Discontinued enoxaparin (LOVENOX) 100 mg/mL injection Inject 100 mg by subcutaneous injection every 12 hours. 025 2024 Discontinued furosemide (LASIX) 40 mg tablet Take 1 Tablet (40 mg) by mouth 2 times daily. 60 Tablet 3 2024 Discontinued furosemide (LASIX) 80 mg tablet [...] late in the day. 30 Tablet 1 2024 Discontinued predniSONE (DELTASONE) 20 mg tablet [...] hours for 3 days. 6 Capsule 2024 predniSONE (DELTASONE) 20 mg tablet Take 2 Tablets (40 mg) by mouth daily with breakfast for 5 days. 10 Tablet 025 2024 Discontinued lidocaine (LIDODERM) 5 % Adhesive Patch, Medicated Apply 1 Patch to affected area every 24 hours for 7 days. 7 Patch 2024 Discontinued Hospital, Clinic, or Other Facility [...] Consolidation of left lower lobe of lung COPD exacerbation 11/06/2024 Hepatic steatosis 11/04/2024 Diabetes [...] 06/14/2019 H/O vaginal surgery 06/14/2019 Atherosclerosis of [place] co ronary artery of [place] heart without angina pectoris 06/14/2019 Urinary incontinence [...] Encounters Date Type Department Care Team Description 11/15/2024 Telephone [facility] [address] [place] [phone] Veronika Yusuf RN Anticoagulation 11/13/2024 10:17 AM CDT - 11/16/2024 1:34 PM CDT Hospital Encounter [facility] 6B Medical Surgical [address] [place] [phone] Austin Robertson MD Kakakhel, Zainab, MD [place], Anthony Charles, COPD with exacerbation ([facility]) Discharge Disposition: DC to Home or Self Care w/ a planned Acute Care Hosp Readmit 11/12/2024 9:40 PM CDT - 11/12/2024 9:42 PM CDT Emergency [facility] Emergency Department [address] [place] [phone] Discharge Disposition: Left Against Medical Advice 11/12/2024 Travel 11/11/2024 7:54 PM CDT - 11/12/2024 12:59 AM CDT Emergency [facility] Emergency Department [address] [place] [address] Aki Booth DO Skin abrasion (Primary Dx); Dyspnea, unspecified type Discharge Disposition: Home or Self Care 11/11/2024 Travel 11/09/2024 Telephone [facility] [place] [address] [address] Eduardo Craven MD Needs Appointment 11/08/2024 4:05 AM CDT - 11/10/2024 2:03 PM CDT Hospital Encounter [facility] 4C Medical [address] [place] [address] Jonny Bowers MD Bandaru, Kiran Babu, MD COPD with exacerbation (CMS/HCC) Discharge Disposition: Home or Self Care 11/07/2024 11:50 AM CDT - 11/07/2024 11:59 PM CDT Hospital Encounter [facility] Emergency Medical Services [place] [address] [phone] Ambulance, [facility] Discharge Disposition: [facility] 11/05/2024 4:22 PM CDT - 11/07/2024 3:04 PM CDT Hospital Encounter [facility] 4A Cardiac [address] [place] [address] Aki Booth DO Abbas, Muhammad Khalid, MD Nagotu Kambagiri, Sharada, MD COPD exacerbation (CMS/HCC) Discharge Disposition: Home or Self Care 10/31/2024 6:02 AM CDT - 11/04/2024 4:24 PM CDT Hospital Encounter [facility] 4B Cardiac [address] [place] [address] Rivas, Aggie, DO EsdrasDanyell cueva MD Kuppi Reddy, Madhavi, MD Siddiqi, Talha, MD Syncope Discharge Disposition: Home or Self Care 10/29/2024 11:32 PM CDT - 10/30/2024 12:54 AM CDT Emergency [facility] Emergency Department [address] [place] [phone] Discharge Disposition: Left Against Medical Advice 10/28/2024 [facility] [address] [place] [phone] Veronika Yusuf RN Anticoagulation 10/26/2024 3:29 PM CDT - 10/29/2024 12:37 PM CDT Hospital Encounter [address] [phone] Haven Joshi DO Abbas, MD Jony Soto, Nani Jerez MD COPD exacerbation ([facility]/HCC) Discharge Disposition: Home or Self Care 10/26/2024 Travel 10/20/2024 5:35 PM CDT - 10/20/2024 10:25 PM CDT Emergency [facility] Emergency Department [address] [place] [phone] Laron Hanson DO Beard, Courtney Elizabeth, MD Shortness of breath (Primary Dx); Bilateral upper abdominal pain Discharge Disposition: Home or Self Care 10/20/2024 Travel 10/16/2024 1:28 AM CDT - 10/19/2024 11:37 AM CDT Hospital Encounter [address] [phone] Slim Galan DO [place], Hari Krishna, MD Patel, Taksh, MD Acute on chronic hypoxic respiratory failure (CMS/HCC) Discharge Disposition: Home or Self Care 10/16/2024 Travel 10/13/2024 Telephone [facility] [place] [address] [phone] Eduardo Craven MD Appoinment request 10/12/2024 Telephone [facility] [place] [address] [facility] [address] [place] [phone] Delta Wade MD Erroneous encounter-disregard 10/10/2024 3:33 AM CDT - 10/11/2024 3:29 PM CDT Hospital Encounter [facility] 4A Cardiac [address] [place] [phone] Anita López MD Bajor, Conrad Mitchell, DO [place], Hari Krishna, MD Acute respiratory distress Discharge Disposition: Home or Self Care 10/10/2024 Travel 10/08/2024 6:07 PM CDT - 10/08/2024 10:40 PM CDT Emergency [facility] Emergency Department [address] [place] [address] Anderson Marie DO COPD with exacerbation (CMS/HCC) (Primary Dx) Discharge Disposition: Home or Self Care 10/08/2024 Travel 10/07/2024 Telephone [facility] [place] [address] [place] [phone] Eduardo Craven MD Documentation Only 10/07/2024 Telephone [facility] [place] [address] [facility] [address] [place] [phone] Ryann Burk MD Question; Patient Communication 10/04/2024 Orders Only [facility] [address] [place] [address] Jerson Salas, ANDERS Closed fracture of first lumbar vertebra, unspecified fracture morphology, initial encounter (CMS/HCC) (Primary Dx) 10/01/2024 2:44 PM CDT - 10/03/2024 1:00 PM CDT Hospital Encounter [facility] 4A Cardiac [address] [place] [address] Huy Ornelas MD Patel, Taksh, MD Mady, Mohamed Hamdy Ahmed Mohamed, MD Kuppi Reddy, Madhavi, MD Chest pain Discharge Disposition: Home or Self Care 09/28/2024 4:25 PM CDT - 09/28/2024 5:54 PM CDT [facility] Emergency Department [address] [place] [phone] Austin Robertson MD [place], Robert C, MD Drug-seeking behavior (Primary Dx) Discharge Disposition: Left Against Medical Advice 09/22/2024 11:44 PM CDT - 09/23/2024 9:48 AM CDT [facility] Emergency Department [address] [place] [phone] Discharge Disposition: Left without being seen 09/22/2024 Travel 09/16/2024 11:40 PM CDT - 09/16/2024 11:41 PM CDT [facility] Emergency Department [address] [place] [phone] Discharge Disposition: Left without being seen 09/12/2024 9:13 PM CDT - 09/15/2024 12:26 PM CDT [facility] 4B Cardiac [address] [place] [phone] Robbie Yen, DO Baig, MD Esperanza Soto, MD La Perez Tasnuva Tarannum, MD COPD exacerbation (CMS/HCC) Discharge Disposition: Home or Self Care 09/10/2024 8:59 PM CDT - 09/11/2024 12:42 AM CDT [facility] Emergency Department [address] [place] [phone] Layton Barrow MD Chronic hypoxemic respiratory failure (CMS/HCC) (Primary Dx); Type 2 diabetes mellitus with hyperglycemia, with long-term current use of insulin (CMS/HCC); Pulmonary emphysema, unspecified emphysema type ([facility]) Discharge Disposition: Home or Self Care 09/10/2024 12:46 PM CDT - 09/10/2024 11:59 PM CDT Hospital Encounter [facility] [place] [facility] [address] [place] [address] Don Causey, DO Discharge Disposition: Home or Self Care 09/10/2024 11:40 AM CDT - 09/10/2024 11:59 PM CDT Hospital Encounter [facility] [place] [address] [place] [address] Don Causey, DO Discharge Disposition: Home or Self Care 09/09/2024 10:42 PM CDT - 09/09/2024 10:46 PM CDT Emergency [facility] Emergency Department [address] [place] [phone] Discharge Disposition: Left without being seen 09/09/2024 5:38 AM CDT - 09/09/2024 12:01 PM CDT Emergency [facility] Emergency Department [address] [place] [phone] Cassius Sanderson MD Acute on chronic congestive heart failure, unspecified heart failure type ([facility]) (Primary Dx) Discharge Disposition: Home or Self Care 09/09/2024 Travel 09/01/2024 Orders Only [facility] [address] [place] [phone] Jerson Salas PA Closed fracture of first lumbar vertebra, unspecified fracture morphology, initial encounter ([facility]) (Primary Dx) 08/29/2024 7:55 PM CDT - 08/30/2024 2:43 PM CDT Emergency [facility] Emergency Department [address] [place] [phone] Danitza Wayne MD Mady, Mohamed Hamdy Ahmed Mohamed, MD COPD with exacerbation (CMS/HCC) (Primary Dx) Discharge Disposition: Home or Self Care 08/23/2024 Telephone [facility] [address] [place] [address] Veronika Yusuf RN Anticoagulation 08/22/2024 4:18 PM CDT - 08/26/2024 6:26 PM CDT Hospital Encounter [facility] 4A Cardiac [address] [place] [address] Austin Robertson MD Abbas, MD Lacie Soto Abhaya, MD COPD exacerbation (CMS/HCC) Discharge Disposition: Home or Self Care 08/22/2024 Travel 08/20/2024 9:19 PM CDT - 08/20/2024 9:22 PM CDT Emergency [facility] Emergency Department [address] [place] [address] Discharge Disposition: Left without being seen 08/20/2024 Travel 08/18/2024 2:20 AM CDT - 08/18/2024 3:03 PM CDT Hospital Encounter [facility] 4B Cardiac [address] [place] [address] Danny Mclean MD Gibert, MD Safia Lagunas, MD [place], Michael Mathew MD Back pain Discharge Disposition: Home or Self Care from [...] PNEUM OCOCCAL CONJUGATE VACCINE 20-VALENT (PCV20), POLYSACCHARIDE [id number] CONJUGATE, ADJUVANT 0.5 ML (PF) IM 06/05/2023,12/02/2022,12/25/2021 [...] often do you attend chur ch or catholic services? More than 4 times per year [...] worry about transportation for future doctor visits, black pickler medication, etc.? 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 Gender Identity Not on file Sexual Orientation [...] Mass Index 36.39 11/13/2024 10:05 AM CDT Plan of Treatment Upcoming Encounters Date Type Department Care Team (Late st Contact Info) Description 01/12/2025 1:40 PM CDT Office Visit [facility] [address] [facility] [address] [place] [address] Tresa Stockton, [facility] [address] [place] [phone] 04/19/2025 10:30 AM FOOD SAFETY SCIENTIST Office Visit [facility] Endocrinology [facility] [address] [place] [address] James Lee MD [address] [place] [address] Gricel Mcgovern PA [address] [place] [address] Health Maintenance Due Date Last [...] Anguiano LPN Medical Devices Implanted Type Area Technical Agronomist Device Identifier Shelf Expiration Date Model / Serial / Lot Dev Closure Angioseal 6fr Vip [id number] - [id number] Implanted:Qty: 1 on 03/21/2024 by Kyler Helm MD at [facility] Closure Device Right: Groin TERUMO[employer]ARDIOVASC SYS [id number] 10/25/2024 [id number] / / [id number] 93 Imp Toe Phalinx 10 Solid Angl Sml [id number] - [id number] Implanted:Qty: 1 on 07/20/2024 by Tereso Gil DPM at [facility] Toe Left: Foot [employer] 12/29/2031 [id number] / / [id number] Procedures Procedure Name Priority Date/Time Associated Diagnosis Comments POC GLUCOSE Routine 11/16/2024 12:27 PM CDT POC GLUCOSE Routine 11/16/2024 7:55 AM CDT POC GLUCOSE Routine 11/16/2024 2:17 AM CDT POC GLUCOSE Routine 11/15/2024 8:21 PM CDT POC GLUCOSE Routine 11/15/2024 5:44 PM CDT POC GLUCOSE Routine 11/15/2024 12:20 PM CDT POC GLUCOSE Routine 11/15/2024 8:17 AM CDT PROTIME-INR Routine 11/15/2024 4:03 AM CDT COMPREHENSIVE METABOLIC PANEL Routine 11/15/2024 4:03 AM CDT CBC WITH DIFFERENTIAL Routine 11/15/2024 4:03 AM CDT POC GLUCOSE Routine 11/14/2024 8:35 PM CDT POC GLUCOSE Routine 11/14/2024 5:59 PM CDT POC GLUCOSE Routine 11/14/2024 12:30 PM CDT MRSA PCR RAPID SCREEN Routine 11/14/2024 8:47 AM CDT POC GLUCOSE Routine 11/14/2024 8:13 AM CDT PROTIME-INR Routine 11/14/2024 5:53 AM CDT COMPREHENSIVE METABOLIC PANEL Routine 11/14/2024 5:53 AM CDT CBC WITH DIFFERENTIAL Routine 11/14/2024 5:53 AM CDT POC GLUCOSE Routine 11/14/2024 1:54 AM CDT POC GLUCOSE Routine 11/13/2024 11:05 PM CDT POC GLUCOSE Routine 11/13/2024 8:31 PM CDT TROPONIN 6 HR, 5TH GEN Timed Study 7:55 PM CDT EXTRA TUBE (URINE [place]) Stat 11/13/2024 5:38 PM CDT URINALYSIS W/REFLEX MICROSCOPIC Stat 11/13/2024 5:38 PM CDT POC GLUCOSE Routine 11/13/2024 5:22 PM CDT RT ASSESS AND TREAT Stat 11/13/2024 3 :19 PM CDT POC GLUCOSE Stat 11/13/2024 2:57 PM CDT BASIC METABOLIC PANEL Stat 11/13/2024 2:12 PM CDT TROPONIN 2 HR, 5TH GEN Timed Study 2:12 PM CDT POC LACTIC ACID Stat 11/13/2024 1:02 PM CDT BLOOD GAS ARTERIAL Stat 11/13/2024 1: 02 PM CDT CTA CHEST + ABD/PEL W CONTRAST Stat 11/13/2024 11:[address] CERVICAL SPINE WO CONTRAST Stat 11/13/2024 11:[address] HEAD WO CONTRAST Stat 11/13/2024 11:41 AM CDT KETONES/BETA HYDROXYBUTYRATE Stat 11/13/2024 11:04 AM CDT LACTIC ACID Stat 11/13/2024 11:04 AM CDT TROPONIN BASELINE, 5TH GEN Stat 11/13/2024 11:04 AM CDT BRAIN NATRIURETIC PEPTIDE, BNP OR PROBNP Stat 11/13/2024 11:04 AM CDT COMPREHENSIVE METABOLIC PANEL Stat 11/13/2024 11:04 AM CDT PROTIME-INR Stat 11/13/2024 11:04 AM CDT CBC WITH DIFFERENTIAL Stat 11/13/2024 11:04 AM CDT RESPIRATORY PATHOGEN PCR PANEL Stat 11/13/2024 11:04 AM CDT BLOOD CULTURE Stat 11/13/2024 11:04 AM CDT BLOOD CULTURE Stat 11/13/2024 11:04 AM CDT RT ASSESS AND TREAT Stat 11/13/2024 10:13 AM CDT EKG 12-LEAD Stat 11/13/2024 10:08 AM CDT BLOOD GAS VENOUS Stat 11/11/2024 11:16 PM [...] 2 HR, 5TH GEN Timed Study 5 6:37 AM CDT D-DIMER Stat 10/10/2024 5:07 AM CDT XR CHEST PA OR AP 1 VW Stat 5 4:30 AM CDT TROPONIN BASELINE, 5TH GEN [...] CDT TELEMETRY REPORT 08/17/2024 1:57 AM CDT LIPID PANEL Routine 02/19/2024 5:29 AM FOOD SAFETY SCIENTIST MICROALBUMIN/CREATININ E RATIO, RANDOM UR Routine 02/26/2023 3:01 PM FOOD SAFETY SCIENTIST Type 2 diabetes mellitus without complication, without long-term current use of insulin ([facility]) Wellness examination CERV/VAG CYTO SCREEN PAP W/HPV Routine 01/06/2023 12:00 AM CDT Wellness examination MAMMO DIAGNOSTIC UNI RIGHT W OR WO CAD Routine 01/24/2011 10:03 AM CDT Lump or mass in breast from Last 3 Months or Most Recently Relevant to Health Maintenance Results * (ABNORMAL) POC GLUCOSE (11/16/2024 12:27 PM CDT) Only the most recent of132 resultswithin the time period is included. GLUCOSE POC 186(H) 74 - 99 mg/dL 11/16/2024 12:27 PM CDT [facility] SPECIMEN SOURCE, GLUCOSE POC Capillary 11/16/2024 12:27 PM CDT [facility] Blood, whole 11/16/2024 12:2 7 PM CDT 11/16/2024 2:46 PM CDT Curly Loaiza DO POINT OF CARE TESTI NG Final Result [facility] CLIA # [id number] [facility] [address] [place] [address] * (ABNORMAL) CBC WITH DIFFERENTIAL (11/15/2024 4:03 AM CDT) Only the most recent of35 resultswithin the time period is included. WBC 8.6 4.8 - 10.8 K/uL 11/15/2024 4:33 AM CDT [facility] NRBCS 4(H) <1 % 11/15/2024 4:33 AM CDT [facility] RBC 3.38(L) 4.20 - 5.40 M/uL 11/15/2024 4:33 AM CDT [facility] HEMOGLOBIN 10.1(L) 12.0 - 16.0 g/dL 11/15/2024 4:33 AM CDT [facility] HEMATOCRIT 34.0(L) 36.0 - 46.0 % 11/15/2024 4:33 AM CDT [facility] MCV 100.6 84.0 - 103.0 fL 11/15/2024 4:33 AM CDT [facility] MCH 29.9 27.0 - 34.0 pg 11/15/2024 4:33 AM CDT [facility] MCHC 29.7(L) 30.0 - 35.0 g/dL 11/15/2024 4:33 AM CDT [facility] PLATELETS 181 140 - 440 K/uL 11/15/2024 4:33 AM CDT [facility] MPV 10.6 8.9 - 12.8 fL 11/15/2024 4:33 AM CDT [facility] RDW 19.6(H) 11.0 - 14.5 % 11/15/2024 4:33 AM [facility] RDW-STDEV 72.1(H) 37.0 - 54.0 fL 11/15/2024 4:33 AM [facility] NEUTROPHILS 63 42 - 75 % 11/15/2024 4:33 AM [facility] LYMPHOCYTES 21(L) 24 - 44 % 11/15/2024 4:33 AM [facility] MONOCYTES 12(H) 2 - 10 % 11/15/2024 4:33 AM [facility] EOSINOPHILS 0 0 - 7 % 11/15/2024 4:33 AM [facility] BASOPHILS 0 0 - 1 % 11/15/2024 4:33 AM [facility] IMMATURE GRANULOCYTES 3(H) 0 - 2 % 11/15/2024 4:33 AM [facility] NEUTROPHIL ABSOLUTE 5.45 2.00 - 8.00 K/uL 11/15/2024 4:33 AM [facility] LYMPHOCYTE ABSOLUTE 1.83 1.20 - 4.00 K/uL 11/15/2024 4:33 AM [facility] MONOCYTE ABSOLUTE 1.05(H) 0.10 - 0.60 K/uL 11/15/2024 4:33 AM [facility] EOSINOPHIL ABSOLUTE 0.00 0.00 - 0.70 K/uL 11/15/2024 4:33 AM [facility] BASOPHILS ABSOLUTE 0.03 0.00 - 0.20 K/uL 11/15/2024 4:33 AM [facility] IMMATURE GRANULOCYTES ABSOLUTE 0.21(H) 0.00 - 0.10 K/uL 11/15/2024 4:33 AM [facility] SMEAR REVIEWED: NN - No Action Needed 11/15/2024 4:33 AM [facility] Blood Venipuncture / Unknown 11/15/2024 4:03 AM CDT 11/15/2024 4:10 AM CDT Elizabeth Elizabeth MD HEMATOLOGY ORDERABLES Final R esult Performing Organization Address City/[facility]/ZIP Co de Phone Number [facility] [employer] [facility] CLIA # [id number] [address] [place] [address] * (ABNORMAL) PROTIME-INR (11/15/2024 4:03 AM CDT) Only the most recent of29 resultswithin the time period is included. PROTIME 17.1(H) 12.7 - 14.9 Seconds 11/15/2024 4:29 AM CDT [facility] [employer] [facility] INR 1.3(H) 0.8 - 1.2 11/15/2024 4:29 AM CDT [facility] [employer] [facility] Blood Venipuncture / Unknown 11/15/2024 4:03 AM CDT 11/15/2024 4:10 AM CDT Narrative [facility] [employer] [facility] - 11/15/2024 4:29 AM CDT Expected Values for INR: DVT/PE Goal INR 2.5; range 2.0 - 3.0 Valve Replacement Tissue Goal INR 2.5; range 2.0 - 3.0 Valve Replacement Mechanical Goal INR 3.0; range 2.5 - 3.5 POST-CT Goal INR 2.5; range 2.0 - 3.0 or Goal INR 3.0; range 2.5 - 3.5 Atrial Fibrillation Goal INR 2.5; range 2.0 - 3.0 Ischemic Stroke Goal INR 2.5; range 2.0 - 3.0 Elizabeth Elizabeth MD HEMATOLOGY ORDERABLES Final R esult Performing Organization Address City/[facility]/ZIP Co de Phone Number [facility] CLIA # [id number] [address] [place] [address] * (ABNORMAL) COMPREHENSIVE METABOLIC PANEL (11/15/2024 4:03 AM CDT) Only the most recent of28 resultswithin the time period is included. [facility] SODIUM 140 136 - 145 mmol/L 11/15/2024 4:49 AM [facility] POTASSIUM 3.9 3.5 - 5.1 mmol/L 11/15/2024 4:49 AM [facility] CHLORIDE 108(H) 98 - 107 mmol/L 11/15/2024 4:49 AM [facility] CO2 23 22 - 29 mmol/L 11/15/2024 4:49 AM [facility] CALCIUM 8.7 8.6 - 10.0 mg/dL 11/15/2024 4:49 AM [facility] BUN 16 6 - 20 mg/dL 11/15/2024 4:49 AM [facility] CREATININE 0.50(L) 0.51 - 0.95 mg/dL 11/15/2024 4:49 AM [facility] GLUCOSE 227(H) 74 - 99 mg/dL 11/15/2024 4:49 AM [facility] TOTAL PROTEIN 5.7(L) 6.4 - 8.3 g/dL 11/15/2024 4:49 AM [facility] ALBUMIN 3.2(L) 3.5 - 5.2 g/dL 11/15/2024 4:49 AM [facility] BILIRUBIN TOTAL 0.2 0.0 - 1.0 mg/dL 11/15/2024 4:49 AM [facility] ALKALINE PHOSPHATASE 103 35 - 104 U/L 11/15/2024 4:49 AM [facility] AST 18 10 - 35 U/L 11/15/2024 4:49 AM [facility] ALT 37(H) <=35 U/L 11/15/2024 4:49 AM [facility] GFR >60 >=60 mL/min/1. 73 sq meter 11/15/2024 4:49 AM [facility] Comment:eGFR calculated with 2020 CKD-EPI equation. Vegetarian diet, extremely high or low muscle mass, and may affect results. Cystatin C with Glomerular Filtration Rate is a suitable alternative for these patients. ANION GAP 9 9 - 20 mmol/L 11/15/2024 4:49 AM CDT [facility] Blood Venipuncture / Unknown 11/15/2024 4:03 AM CDT 11/15/2024 4:10 AM CDT Elizabeth Elizabeth MD CHEMISTRY ORDERABLES Final Re sult Performing Organization Address City/[facility]/ZIP Co de Phone Number [facility] CLIA # [id number] [place] [address] * MRSA PCR RAPID SCREEN (11/14/2024 8:47 AM CDT) Pathologist [facility] MRSA PCR RESULT MRSA not detected MRSA not detected 11/14/2024 10:11 AM CDT [facility] Surveillance ANTERIOR NARES SWAB / Unknown Collection / Unknown 11/14/2024 8:47 AM CDT 11/14/2024 8:52 AM CDT Narrative [facility] - 11/14/2024 10:11 AM CDT This assay [...] RAL ORDERABLES Final Result Performing Organization Address City/[facility]/ZIP Co de Phone Number [facility] CLIA # [id number] [address] [place] [address] * (ABNORMAL) TROPONIN 6 HR, 5TH GEN (11/13/2024 7:55 PM CDT) Only the most recent of8 resultswithin the time period is included. TROPONIN T, 6 HR 5TH GEN 18(H) <11 ng/L 11/13/2024 8:50 PM CDT [facility] DELTA 6HR TROPONIN T 1 See Interp. 11/13/2024 8:50 PM CDT [facility] Blood Venipuncture / Unknown 11/13/2024 7:55 PM CDT 11/13/2024 8:18 PM CDT Narrative [facility] - 11/13/2024 8:50 PM CDT Troponin elevated. Delta indeterminate. Delay in collection of timed specimen beyond recommended collection interval. Results must be interpreted in clinical context. Pablo Kim [facility] CHEMISTRY ORDERABLES Fi nal Result Performing Organization Address [facility]/ZIP Co de Phone Number [facility] CLIA # [id number] [address] [place] [address] * EXTRA TUBE (URINE [place]) (11/13/2024 5:38 PM CDT) Only the most recent of3 resultswithin the time period is included. Urine URINE SPECIMEN OBTAINED BY CLEAN CATCH PROCEDURE / Unknown Collection / Unknown 11/13/2024 5:38 PM CDT 11/13/2024 5:43 PM CDT [facility] ORDERABLES Final Result [facility] CLIA # [id number] [address] [place] [address] * (ABNORMAL) URINALYSIS WITH REFLEX MICROSCOPIC (11/13/2024 5:38 PM CDT) Only the most recent of3 resultswithin the time period is included. COLOR UA Pale Yellow Pale to Dark Yellow 11/13/2024 5:50 PM CDT [facility] CLARITY UA Clear Clear 11/13/2024 5:50 PM CDT [facility] SPECIFIC GRAVITY UA 1.039(H) 1.003 - 1.035 11/13/2024 5:50 PM CDT [facility] PH UA 6.5 5.0 - 8.0 11/13/2024 5:50 PM CDT [facility] LEUKOCYTE ESTERASE UA Negative Negative 11/13/2024 5:50 PM CDT [facility] NITRITE UA Negative Negative 11/13/2024 5:50 PM CDT [facility] PROTEIN UA Negative Negative 11/13/2024 5:50 PM CDT [facility] GLUCOSE UA 4+(A) Negative 11/13/2024 5:50 PM CDT [facility] KETONES UA Negative Negative 11/13/2024 5:50 PM CDT [facility] UROBILINOGEN UA <2.0 <2.0 mg/dL 5:50 PM CDT [facility] BILIRUBIN UA Negative Negative 11/13/2024 5:50 PM CDT [facility] BLOOD UA Negative Negative 11/13/2024 5:50 PM CDT [facility] Urine URINE SPECIMEN OBTAINED BY CLEAN CATCH PROCEDURE / Unknown Collection / Unknown 11/13/2024 5:38 PM CDT 11/13/2024 5:43 PM CDT Pablo Morales DIVISION SUPERVISOR URINE ORDERABLES Final Result [facility] CLIA # [id number] [address] [place] [address] [place] [address] * (ABNORMAL) TROPONIN 2 HR, 5TH GEN (11/13/2024 2:12 PM CDT) Only the most recent of12 resultswithin the time period is included. TROPONIN T, 2 HR 5TH GEN 16(H) <=10 ng/L 11/13/2024 2:37 PM CDT [facility] DELTA 2HR TROPONIN T -1 See Interp. 11/13/2024 2:37 PM CDT [facility] Blood Venipuncture / Unknown 11/13/2024 2:12 PM CDT 11/13/2024 2:12 PM CDT Narrative [facility] - 11/13/2024 2:37 PM CDT Troponin elevated. Delta not changing. Delay in collection of timed specimen beyond recommended collection interval. Results must be interpreted in clinical context. 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 SODIUM 137 136 - 145 mmol/L 11/13/2024 3:45 PM T [facility] POTASSIUM 4.4 3.5 - 5.1 mmol/L 11/13/2024 3:45 PM T [facility] Comment:Slightly hemolyzed. Result may be falsely elevated. CHLORIDE 105 98 - 107 mmol/L 11/13/2024 3:45 PM CDT [facility] CO2 18(L) 22 - 29 mmol/L 11/13/2024 3:45 PM CDT [facility] CALCIUM 8.3(L) 8.6 - 10.0 mg/dL 11/13/2024 3:45 PM CDT [facility] BUN 17 6 - 20 mg/dL 11/13/2024 3:45 PM CDT [facility] CREATININE 0.39(L) 0.51 - 0.95 mg/dL 11/13/2024 3:45 PM CDT [facility] GLUCOSE 353(H) 74 - 99 mg/dL 11/13/2024 3:45 PM CDT [facility] GFR >60 >=60 mL/min/1. 73 sq meter 11/13/2024 3:45 PM CDT [facility] Comment:eGFR calculated with 2020 CKD-EPI equation. Vegetarian diet, extremely high or low muscle mass, and may affect results. Cystatin C with Glomerular Filtration Rate is a suitable alternative for these patients. ANION GAP 14 9 - 20 mmol/L 11/13/2024 3:45 PM CDT [facility] Blood Venipuncture / Unknown 11/13/2024 2:12 PM CDT 11/13/2024 2:12 PM CDT us Elizabeth Elizabeth MD CHEMISTRY ORDERABLES Final Re sult [facility] CLIA # [id number] [address] [place] [address] * (ABNORMAL) POC LACTIC ACID (11/13/2024 1:02 PM CDT) Only the most recent of2 resultswithin the time period is included. LACTIC ACID POC 2.7(H) <=2.0 mmol/L 11/13/2024 1:02 PM CDT [facility] SPECIMEN SOURCE, GASES POC Arterial 11/13/2024 1:02 PM CDT [facility] PUNC SITE POC ART PUNCT 11/13/2024 1:02 PM CDT [facility] Blood 11/13/2024 1:02 PM CDT 11/13/2024 1:03 PM CDT Narrative [facility] - 11/13/2024 1:02 PM CDT References ranges displayed are for Arterial samples. us Austin Robertson MD POINT OF CARE TEST ING Final Result [facility] CLIA # [id number] [address] [address] [place] [address] * (ABNORMAL) BLOOD GAS ARTERIAL (11/13/2024 1:02 PM CDT) Only the most recent of6 resultswithin the time period is included. [facility] PH BLOOD POC 7.40 7.35 - 7.45 11/13/2024 1:02 PM [facility] PCO2 POC 37 35 - 45 mm Hg 11/13/2024 1:02 PM [facility] PO2 POC 92 80 - 105 mm Hg 11/13/2024 1:02 PM [facility] HCO3 (CALC) POC 23 22 - 26 mmol/L 11/13/2024 1:02 PM [facility] HEMOGLOBIN POC 10.6(L) 12.0 - 18.0 g/dL 11/13/2024 1:02 PM [facility] BASE EXCESS POC -2 -2 - 3 mmol/L 11/13/2024 1:02 PM [facility] O2 SATURATION POC 98 95 - 98 % 11/13/2024 1:02 PM [facility] SODIUM POC 134(L) 138 - 146 mmol/L 11/13/2024 1:02 PM [facility] POTASSIUM POC 5.0(H) 3.5 - 4.9 mmol/L 11/13/2024 1:02 PM [facility] HEMATOCRIT POC 32(L) 38 - 51 % 11/13/2024 1:02 PM [facility] PH TEMP CORRECT 7.40 7.35 - 7.45 11/13/2024 1:02 PM [facility] PCO2 TEMP CORRECT 37 35 - 45 mm Hg 11/13/2024 1:02 PM [facility] PO2 TEMP CORRECT 92 80 - 105 mm Hg 11/13/2024 1:02 PM CDT [facility] SPECIMEN SOURCE, GASES POC Arterial 11/13/2024 1:02 PM CDT [facility] CALCIUM IONIZED POC 5.3(H) 4.8 - 5.2 mg/dL 11/13/2024 1:02 PM CDT [facility] TCO2 (CALC) POC 24 23 - 27 mmol/L 11/13/2024 1:02 PM CDT [facility] PUNC SITE POC ART PUNCT 11/13/2024 1:02 PM CDT [facility] Blood, arterial 11/13/2024 1 :02 PM CDT 11/13/2024 1:03 PM CDT us Austin Robertson MD ABG ORDERABLES Fi nal Result [facility] CLIA # [id number] [address] [place] [address] * CTA CHEST + ABD/PEL W CONTRAST [...] IMPRESSION: No acute fracture or traumatic malalignment. [facility] ORDERABLES Final R esult * CT HEAD WO CONTRAST (11/13/2024 11:41 AM CDT) Only the most recent of2 resultswithin the time period is included. Anatomical Region Laterality Modality Head Computed Tomogra [...] No acute intracranial process. Narrative Procedure Note Guilhreme Rubin MD - 11/13/2024 IMPRESSION: Please see [...] is identified. IMPRESSION: No acute intracranial process. [facility] CT ORDERABLES Final R esult * (ABNORMAL) TROPONIN BASELINE, 5TH GEN (11/13/2024 11:04 AM CDT) Only the most recent of15 resultswithin the time period is included. TROPONIN T, BASELINE 5TH GEN 17(H) <=10 ng/L 11/13/2024 11:45 AM CDT [facility] Blood Venipuncture / Unknown 11/13/2024 11:04 AM CDT 11/13/2024 11:12 AM CDT [facility] - 11/13/2024 11:45 AM CDT Troponin elevated. Pablo Morales DIVISION SUPERVISOR CHEMISTRY ORDERABLES Fi nal Result [facility] CLIA # [id number] [address] [address] [place] [address] * RESPIRATORY PATHOGEN PCR PANEL (11/13/2024 11:04 AM CDT) Only the most recent of5 resultswithin the time period is included. [facility] Respiratory Pathogen PCR Panel NOT DETECTED No respiratory pathogen nucleic acids detected. 11/13/2024 12:06 PM CDT [facility] COVID-19 PCR NOT DETECTED Not Detected 11/13/2024 12:06 PM CDT [facility] Upper Respiratory ENTIRE NASOPHARYNX / Unknown Collection / Unknown 11/13/2024 11:04 AM CDT 11/13/2024 11:12 AM CDT [facility] - 11/13/2024 12:06 PM CDT The Film [...] MICROBIOLOGY - GEN ERAL ORDERABLES Final Result [facility] CLIA # [id number] [address] [address] [place] [address] * (ABNORMAL) LACTIC ACID (11/13/2024 11:04 AM CDT) Only the most recent of14 resultswithin the time period is included. LACTIC ACID 3.9(H) <=2.0 mmol/L 11/13/2024 11:34 AM CDT [facility] Blood Venipuncture / Unknown 11/13/2024 11:04 AM CDT 11/13/2024 11:11 AM CDT us Austin Robertson MD CHEMISTRY ORDERABL ES Final Result Performing Organization Address [facility] de Phone Number [facility] CLIA # [id number] [address] [address] [place] [address] * KETONES/BETA HYDROXYBUTYRATE (11/13/2024 11:04 AM CDT) BETA HYDROXYBUTYRATE 0.2 0.0 - 0.3 mmol/L 11/13/2024 12:52 PM CDT [facility] Blood Venipuncture / Unknown 11/13/2024 11:04 AM CDT 11/13/2024 11:12 AM CDT us Elizabeth Elizabeth MD CHEMISTRY ORDERABLES Final Re sult Performing Organization Address [facility] Co de Phone Number [facility] CLIA # [id number] [address] [address] [place] [address] * (ABNORMAL) BRAIN NATRIURETIC PEPTIDE, BNP OR PROBNP (11/13/2024 11:04 AM CDT) Only the most recent of13 resultswithin the time period is included. PROBNP, N TERMINAL 412(H) 0 - 125 pg/mL 11/13/2024 11:46 AM CDT [facility] Comment: INTERPRETIVE COMMENT based on [...] CDT 11/13/2024 11:12 AM CDT Pablo Morales DIVISION SUPERVISOR CHEMISTRY ORDERABLES Fi nal Result [facility] CLIA # [id number] [address] [address] * EKG 12-LEAD (11/13/2024 10:08 AM CDT) Only the most recent of20 resultswithin the time period is included. 11/13/2024 10:0 8 AM CDT Narrative INTERFACE SYSTEM - 11/13/2024 1:08 PM CDT [address] [address] Test Date: 2024-11-13 Pat Name: LE DIAZ Department: 11 Room: Gender: Female Electoral Officer: [id number] : 1965 Requested By: Order Number: [id number] Reading MD: Echo Tapia Measurements Intervals [place] Rate: 108 P: 18 OK: 150 QRS: 51 QRSD: 78 T: 101 QT: 340 QTc: 455 Interpretive Statements Sinus tachycardia Possible Inferior infarct, age undetermined Abnormal ECG Electronically Signed On 11-13-2024 13:08:00 CDT by Echo Tapia Procedure Note Provider, Historical - 11/13/2024 [facility] [address] [place] [address] Test Date: 2024-11-13 Pat Name: LE DIAZ Department: 11 Room: Gender: Female Electoral Officer: [id number] : 1965 Requested By: Order Number: [id number] Reading MD: Echo Tapia Measurements Intervals [place] Rate: 108 P: 18 OK: 150 QRS: 51 QRSD: 78 T: 101 QT: 340 QTc: 455 Interpretive Statements Sinus tachycardia Possible Inferior infarct, age undetermined Abnormal ECG Electronically Signed On 11-13-2024 13:08:00 CDT by Echo Tapia us Austin Robertson MD ECG ORDERABLES Fi nal Result INTERFACE SYSTEM Refer to clinic/hospital department * (ABNORMAL) BLOOD GAS VENOUS (11/11/2024 11:16 PM CDT) Only the most recent of7 resultswithin the time period is included. PH BLOOD POC 7.43 7.32 - 7.43 11/11/2024 11:16 PM CDT [facility] PCO2 POC 51(H) 38 - 50 mm Hg 11/11/2024 11:16 PM CDT [facility] PO2 POC 47(H) 25 - 40 mm Hg 11/11/2024 11:16 PM CDT [facility] HCO3 (CALC) POC 34(H) 22 - 29 mmol/L 11/11/2024 11:16 PM CDT [facility] HEMOGLOBIN POC 11.4(L) 12.0 - 18.0 g/dL 11/11/2024 11:16 PM CDT [facility] BASE EXCESS POC 10(H) -2 - 3 mmol/L 11/11/2024 11:16 PM CDT [facility] O2 SATURATION POC 76(H) 40 - 70 % 11/11/2024 11:16 PM CDT [facility] SODIUM POC 137 135 - 145 mmol/L 11/11/2024 11:16 PM CDT [facility] POTASSIUM POC 4.2 3.5 - 4.9 mmol/L 11/11/2024 11:16 PM CDT [facility] HEMATOCRIT POC 34(L) 38 - 51 % 11/11/2024 11:16 PM CDT [facility] PH TEMP CORRECT 7.43 7.32 - 7.43 11/11/2024 11:16 PM CDT [facility] PCO2 TEMP CORRECT 51(H) 38 - 50 mm Hg 11/11/2024 11:16 PM CDT [facility] PO2 TEMP CORRECT 47(H) 25 - 40 mm Hg 11/11/2024 11:16 PM CDT [facility] SPECIMEN SOURCE, GASES POC Venous 11/11/2024 11:16 PM CDT [facility] CALCIUM IONIZED POC 5.4(H) 4.8 - 5.2 mg/dL 11/11/2024 11:16 PM CDT [facility] TCO2 (CALC) POC 36(H) 22 - 26 mmol/L 11/11/2024 11:16 PM CDT [facility] PUN SITE POC No Charge 11/11/2024 11:16 PM T [facility] Blood, venous 11/11/2024 11: 16 PM CDT 11/11/2024 11:17 PM CDT us Aki Booth DO ABG ORDERABLES Final R esult [facility] CLIA # [id number] [address] [place] [address] [place], [place] [address] * INFLUENZA A/B, RSV AND COVID-19 PCR PANEL (11/11/2024 9:55 PM CDT) Only the most recent of5 resultswithin the time period is included. COVID-19 PCR NOT DETECTED Not Detected 11/12/19 11:06 PM CDT [facility] Influenza A by PCR NOT DETECTED Not Detected 11/11/2024 11:06 PM CDT [facility] Influenza B by PCR NOT DETECTED Not Detected 11/11/2024 11:06 PM CDT [facility] RSV by PCR NOT DETECTED Not Detected 11/11/2024 11:06 PM CDT [facility] Upper Respiratory ENTIRE NASOPHARYNX / Unknown Collection / Unknown 11/11/2024 9:55 PM CDT 11/11/2024 10:10 PM CDT Narrative [facility] - 11/11/2024 11:06 PM CDT This test [...] DO MICROBIOLOGY - GENERAL ORDERABLES Final Result [facility] CLIA # [id number] [address] [place] [address] * XR FEMUR 2 VW BILAT (11/11/2024 [...] dislocation. Aki Booth DO DIAGNOSTIC IMAGING [facility] Final Result * XR WRIST 3+ VW [...] of the right first carpometacarpal joint. Aki Curly Booth DO DIAGNOSTIC IMAGING ORDE RABKAREY Final Result * XR TIBIA AND FIBULA [...] 8:26 PM CDT) Only the most recent of19 resultswithin the time period is included. Anatomical [...] NP DIAGNOSTIC IMAGING ORDERABLES Final Result * TELEMETRY REPORT (11/11/2024 2:10 AM CDT) Only the most recent of11 resultswithin the time period is included. us Provider Scanning ECG ORDERABLES Final Result * XR LUMBAR SPINE 2 OR 3 [...] superior endplate compression fracture. Narrative Procedure Note RadhaCarlos Bala, DO - 11/09/2024 IMPRESSION: Please see below. Exam: XR LUMBAR SPINE 2 OR 3 VW Date/Time of Exam: 11/08/2024 8:30 PM Reason For Exam: Fall. Diagnosis: COPD with exacerbation ([facility]). Comparison: September 13, 2024 FINDINGS: Frontal lateral and lumbosacral projections show mild left convex scoliosis. Slight degenerative anterolisthesis L4-5. Mild to moderate lumbar disc degeneration, greatest distally. Minor ventral spondylosis. Mild to moderate distal facet arthropathy. Stable mild grade L1 superior endplate compression fracture. Ronak Cortes MD DIAGNOSTIC IMAGING ORDERABLES Final Result * (ABNORMAL) CBC WITHOUT DIFFERENTIAL (11/07/2024 4:10 AM CDT) Only the most recent of7 resultswithin the time period is included. WBC 10.2 4.8 - 10.8 K/uL 11/07/2024 4:41 AM [facility] NRBCS 1(H) <1 % 11/07/2024 4:41 AM T [facility] RBC 3.51(L) 4.20 - 5.40 M/uL 11/07/2024 4:41 AM [facility] HEMOGLOBIN 10.4(L) 12.0 - 16.0 g/dL 11/07/2024 4:41 AM T [facility] HEMATOCRIT 33.8(L) 36.0 - 46.0 % 11/07/2024 4:41 AM T [facility] MCV 96.3 84.0 - 103.0 fL 11/07/2024 4:41 AM T [facility] MCH 29.6 27.0 - 34.0 pg 11/07/2024 4:41 AM [facility] MCHC 30.8 30.0 - 35.0 g/dL 11/07/2024 4:41 AM CDT [facility] PLATELETS 188 140 - 440 K/uL 11/07/2024 4:41 AM CDT [facility] MPV 10.8 8.9 - 12.8 fL 11/07/2024 4:41 AM CDT [facility] RDW 18.5(H) 11.0 - 14.5 % 11/07/2024 4:41 AM CDT [facility] RDW-STDEV 64.7(H) 37.0 - 54.0 fL 11/07/2024 4:41 AM CDT [facility] Blood Venipuncture / Unknown 11/07/2024 4:10 AM CDT 11/07/2024 4:30 AM CDT Nba Baig MD HEMATOLOGY ORDERABLES F inal Result Performing Organization Address City/State/[facility] Co de Phone Number [facility] CLIA # [id number] [facility] [address] [place] [address] * Critical Care (11/05/2024 4:16 PM CDT) [...] no Care discussed with: admitting provider Aki Rawls Emmy DO PROCEDURE/MINOR SURGICA L ORDERABLES Final Result * ECHOCARDIOGRAM W/ CONTRAST AGENT (11/02/2024 9:31 AM CDT) EJECTION FRACTION 50 INTERFACE SYSTEM 11/02/2024 8:52 AM CDT Narrative INTERFACE SYSTEM - 11/02/2024 6:23 PM CDT [facility] Echocardiography Laboratory [address] [place] [id number] Transthoracic Echocardiography Patient: Le Diaz Study ID: ECHO COMPLETE - Gender: Kingsley : 1965 Age: 59 Room: [facility] Study Date: 11/02/2024 Pt Status: Inpatient Study Time: 08:52:49 AM CSN #: [id number] Ordering:Danyell Dewitt Low Pressure Firer: [facility] Indications and History: Syncope. Risk factors: [...] robbie values outside specified reference range. [facility] Labs are accredited with the Intersocietal Accreditation Commission - Echocardiography. Prepared and Electronically Authenticated Howie Sweeney MD Confirmed 11/02/2024 18:22 Procedure Note Howie Sweeney MD - 11/02/2024 [facility] Echocardiography Laboratory [address] [place] [id number] Transthoracic Echocardiography Patient: Le Diaz Study ID: ECHOCOMPLETE - Gender: F : 1965 Age: 59 Room: [facility] Study Date: 11/02/2024 Pt Status: Inpatient Study Time: 08:52:49 AM CSN #: [id number] Ordering:Danyell Dewitt Low Pressure Firer: [facility] Indications and History: Syncope. Risk factors: [...] 48 % Tricuspid valve Value E', lat laieny, TDI 7.2 cm/sec TR vena contracta width 2.0 cm E/e', lat lainey, TDI 6 E', med lainey, TDI 7.9 cm/sec Ascending aorta Value E/e', med lainey, TDI 6 AAo AP diam, S 3.6 cm E', avg, TDI 7.6 cm/sec AAo AP diam/bsa, S 1.7cm/m^2 E/e', avg, TDI 6 Legend: (L) and (H) robbie values outside specified reference range. [facility] are accredited with theIntersocietal Accreditation Commission - Echocardiography. Prepared and Electronically Authenticated Howie Sweeney MD Confirmed 11/02/2024 18:22 us Danyell Dewitt MD US ORDERABLES Final Resul t INTERFACE SYSTEM Refer to clinic/hospital department * (ABNORMAL) OSMOLALITY (11/01/2024 9:10 PM CDT) OSMOLALITY 324(H) 275 - 295 mOsm/kg 11/01/2024 10:03 PM CDT [facility] Blood Venipuncture / Unknown 11/01/2024 9:10 PM CDT 11/01/2024 9:30 PM CDT us Li Anderson MD CHEMISTRY ORDERABLES Jana l Result Performing Organization Address [facility] de Phone Number [facility] CLIA # [id number] [address] [place] [address] * US CAROTID DOPPLER (11/01/2024 8:04 AM CDT) Anatomical Region Laterality Modality Neck Ultrasound 11/01/2024 7:32 AM CDT Narrative 11/01/2024 9:00 AM CDT [facility] Noninvasive Vascular Laboratory [address] [place] [id number] Noninvasive Vascular Lab Cerebrovascular Exam Carotid Duplex Patient: Le Diaz Study ID: US CAROTID DOPPL Gender: F : 1965 Age: 59 Room: [facility] Height: 162.6cm Weight: 97kg BSA: 2.14m^2 Pt status: Inpatient Study Date: 11/01/2024 Study Time: 07:32:50 AM BSA: 2.14m^2 Ordering: Danyell Dewitt Interpreting:Lm Zimmerman Low Pressure Firer: Jerson Nuñez Indications: Syncope. Summary Mild plaque [...] !Proximal ICA/prox CCA!0.68 !0.53 ! + +-----+-----+ [facility] is accredited with the Intersocietal Commission for the Accreditation of Vascular Laboratories (ICAVL) Prepared and Electronically Authenticated Lm Zimmerman Confirmed 11/01/2024 09:00 Procedure Note Lm Zimmerman MD - 11/01/2024 [facility] Noninvasive Vascular Laboratory [address] [place] [id number] Noninvasive Vascular Lab Cerebrovascular Exam Carotid Duplex Patient: Le Diaz Study ID: US CAROTID DOPPL Gender: F : 1965 Age: 59 Room: [facility] Height: 162.6cm Weight: 97kg BSA: 2.14m^2 Pt status: Inpatient Study Date: 11/01/2024 Study Time: 07:32:50 AM BSA: 2.14m^2 Ordering: Danyell Dewitt Interpreting:Lm Zimmerman Low Pressure Firer: Jerson Nuñez Indications: Syncope. Summary Mild plaque [...] !Proximal ICA/prox CCA!0.68 !0.53 ! + +-----+-----+ [facility] is accredited with theIntersocietal Commission for the Accreditation of Vascular Laboratories (ICAVL) Prepared and Electronically Authenticated Lm Zimmerman Confirmed 11/01/2024 09:00 Danyell Dewitt MD US ORDERABLES Final Resul t * BLOOD CULTURE (10/31/2024 1:24 PM CDT) Only the most recent of5 resultswithin the time period is included. BLOOD CULTURE No growth 11/05/2024 2:29 PM CDT [facility] Blood (Peripheral) Venipuncture / Unknown 10/31/2024 1:24 PM CDT 10/31/2024 1:29 PM CDT Aggie Rivas DO MICROBIOLOGY - GENERAL ORDERABLE S Final Result [facility] CLIA # [id number] [address] [place] [address] [place], [place] [address] * CTA CHEST W AND/OR WO CONTRAST [...] 8:07 AM CDT) Only the most recent of5 resultswithin the time period is included. Pathologist [facility] MAGNESIUM 2.0 1.6 - 2.6 mg/dL 10/31/2024 10:58 AM CDT [facility] LABORATORY SERVICES [facility] Blood Venipuncture / Unknown 10/31/2024 8:07 AM CDT 10/31/2024 8:14 AM CDT Danyell Dewitt MD CHEMISTRY ORDERABLES Final Result Performing Organization Address [facility] Co de Phone Number [facility] CLIA # [id number] [address] [address] * (ABNORMAL) HEMOGLOBIN A1C (10/31/2024 3:08 AM CDT) HEMOGLOBIN A1C 10.4(H) <=5.6 % 11/02/2024 10:13 AM CDT [facility] EST. AVG GLUCOSE, A1C 252 mg/dL 11/02/2024 10:13 AM CDT [facility] Blood Venipuncture / Unknown 10/31/2024 3:08 AM CDT 10/31/2024 3:13 AM CDT Narrative [facility] [employer] [facility] - 11/02/2024 10:13 AM CDT HGB A1C INTERPRETATION NORMAL: <5.7% PRE-DIABETES: 5.7 - 6.4% DIABETES: 6.5% OR GREATER Danyell Dewitt MD CHEMISTRY ORDERABLES Final Result Performing Organization Address [facility] de Phone Number [facility] CLIA # [id number] [facility] [address] * LIPASE (10/31/2024 1:11 AM CDT) Only the most recent of2 resultswithin the time period is included. LIPASE 21 13 - 60 U/L 10/31/2024 6:26 AM CDT [facility] Blood Venipuncture / Unknown 10/31/2024 1:11 AM CDT 10/31/2024 1:22 AM CDT Aggie Rivas DO CHEMISTRY ORDERABLES Final Resul t [facility] # [id number] [address] [place] [address] * US ABDOMEN LIMITED (10/28/2024 10:54 AM [...] sonographic Heath's sign was documented by the financial representative. Common bile duct: No dilation of the [...] sonographic Heath's sign was documented by the financial representative. Common bile duct: No dilation of the intrahepatic ducts. Common bile duct measures 3.6 mm. No right hydronephrosis or sonographically evident for renal calculi. Right kidney measures 12.5 cm length. Pancreas: Poorly visualized due to overlying bowel gas. IMPRESSION: 1. No acute sonographic abnormalities in the right upper quadrant. 2. Diffuse hepatic steatosis. Nani Broges MD US ORDERABLES Final Re sult * (ABNORMAL) HEPATIC FUNCTION PANEL (10/28/2024 5:37 AM CDT) TOTAL PROTEIN 7.2 6.4 - 8.3 g/dL 10/28/2024 10:03 AM CDT [facility] ALBUMIN 4.0 3.5 - 5.2 g/dL 10/28/2024 10:03 AM CDT [facility] BILIRUBIN TOTAL 0.3 0.0 - 1.0 mg/dL 10/28/2024 10:03 AM CDT [facility] BILIRUBIN DIRECT 0.1 0.0 - 0.3 mg/dL 10/28/2024 10:03 AM CDT [facility] Comment:Hemolyzed: Result ma y be falsely decreased. ALKALINE PHOSPHATASE 131(H) 35 - 104 U/L 10/28/2024 10:03 AM CDT [facility] AST 15 10 - 35 U/L 10/28/2024 10:03 AM CDT [facility] ALT 24 <=35 U/L 10/28/2024 10:03 AM T [facility] Blood Venipuncture / Unknown 10/28/2024 5:37 AM CDT 10/28/2024 5:46 AM CDT Nani Borges MD CHEMISTRY ORDERABLES Fin al Result [id number] [address] [place] [address] * (ABNORMAL) PTT (10/26/2024 4:54 PM CDT) Only the most recent of3 resultswithin the time period is included. PTT 17.2(L) 24.8 - 37.2 seconds 10/26/2024 5:39 PM CDT [facility] Blood Venipuncture / Unknown 10/26/2024 4:54 PM CDT 10/26/2024 5:08 PM CDT Narrative [facility] - 10/26/2024 5:39 PM CDT Therapeutic Range: Hi-level PE/DVT heparin protocol 80.1 - 95.0 sec Lo-level PE/DVT heparin protocol 70.1 - 85.0 sec Cardiac Heparin Protocol 70.1 - 100.0 sec us Noor Ahmed DO HEMATOLOGY ORDERABLES Final Resu lt [facility] CLIA # [id number] [facility] [address] [place] [address] * CT ABDOMEN PELVIS W CONTRAST (10/20/2024 [...] PCR PANEL (10/11/2024 12:03 PM CDT) Pathologist [facility] GI Pathogen PCR panel NOT DETECTED No nucleic acids detected. 10/11/2024 1:26 PM CDT [facility] Stool STOOL SPECIMEN / Unknown Collection / Unknown 10/11/2024 12:03 PM CDT 10/11/2024 12:05 PM CDT Narrative [facility] LABORATORY [facility] - 10/11/2024 1:26 PM CDT The Film [...] ORDERABLES Final Result Performing Organization Address City/[facility]/ZIP Co de Phone Number [facility] CLIA # [id number] [address] [address] * OCCULT BLOOD GUAIAC DIAGNOSTIC (10/11/2024 12:02 PM CDT) OCCULT BLOOD, STOOL Negative Negative 10/11/2024 12:11 PM CDT [facility] Stool STOOL SPECIMEN / Unknown Collection / Unknown 10/11/2024 12:02 PM CDT 10/11/2024 12:03 PM CDT Kapil Deluna DO BODY FLUIDS AND STOOLS Final Result Performing Organization Address [facility] Co de Phone Number [facility] CLIA # [id number] [facility] [address] * XR ABDOMEN 1 VW (10/10/2024 8:40 [...] resultswithin the time period is included. Pathologist [facility] D-DIMER QUANT 0.34 0.00 - 0.50 ug/mL FEU 10/10/2024 5:26 AM CDT [facility] Blood Venipuncture / Unknown 10/10/2024 5:07 AM CDT 10/10/2024 5:12 AM CDT Narrative [facility] - 10/10/2024 5:26 AM CDT D-Dimer [...] López MD HEMATOLOGY ORDERABLES Final Re sult [facility] CLIA # [id number] [facility] [address] * MANUAL DIFFERENTIAL (10/08/2024 5:38 PM CDT) Only the most recent of3 resultswithin the time period is included. Pathologist [facility] PLATELET EST. Adequate 10/08/2024 6:23 PM CDT [facility] ANISOCYTOSIS 1+ /hpf 10/08/2024 6:23 PM CDT [facility] POLYCHROMASIA 1+ /hpf 10/08/2024 6:23 PM CDT [facility] COTTON-JOLLY BODIES Present /hpf 10/08/2024 6:23 PM CDT [facility] Blood Venipuncture / Unknown 10/08/2024 5:38 PM CDT 10/08/2024 5:49 PM CDT us Nat Baez PA-C HEMATOLOGY ORDERABLES COM Fi nal Result Performing Organization Address City/[facility]/ZIP Co de Phone Number [facility] CLIA # [id number] [address] [place] [address] * UNFRACTIONATED HEPARIN MONITORING (10/03/2024 9:29 AM CDT) Only the most recent of7 resultswithin the time period is included. ANTI-XA UNFRAC HEP 0.58 See Interpretation IU/mL 10/03/2024 10:39 AM CDT [facility] Blood Venipuncture / Unknown 10/03/2024 9:29 AM CDT 10/03/2024 10:20 AM CDT Narrative [facility] - 10/03/2024 10:39 AM CDT Therapeutic Range: PT/DVT Heparin Protocol 0.3 - 0.7 IU/ml Cardiac Heparin Protocol 0.3 - 0.6 IU/ml The reference range for this test is specific to the anticoagulant and is not appropriate for monitoring patients on a DOAC protocol. us Sasha Juan MD HEMATOLOGY O RDERABLES Final Result [facility] CLIA # [id number] [address] [place], [place] [id number] * PET HEART PERF R&S W CT [...] ORDERABLES Final Resu lt Performing Organization Address City/State/[facility] Co de Phone Number INTERFACE SYSTEM Refer to clinic/hospital department * (ABNORMAL) TROPONIN (10/02/2024 8:18 AM CDT) TROPONIN T, 5TH GEN 28(H) <=10 ng/L 10/02/2024 9:06 AM CDT [facility] [employer] [facility] Blood Venipuncture / Unknown 10/02/2024 8:18 AM CDT 10/02/2024 8:30 AM CDT Narrative [facility] LABORATORY [facility] - 10/02/2024 9:06 AM CDT Troponin elevated. Dane Hopkins MD CHEMISTRY ORDERABLES Final Result Performing Organization Address City/[facility]/ZIP Co de Phone Number [facility] CLIA # [id number] [address] [facility] [place] [address] * XR THORACOLUMBAR SPINE 2 VW (09/13/2024 [...] CLINICAL HISTORY: ASSOCIATED DIAGNOSIS: Fracture ORDERING PROVIDER: ANDARDE SUANDERS NOTE: COMPARISON: Lumbar spine radiographs 03/24/2009 FINDINGS: [...] DIAGNOSTIC IMAGING OR DERABLES Final Result * URINE CULTURE (09/13/2024 1:12 PM CDT) CULTURE Polymicrobial growth consistent with normal urethral kota and/or colonizing bacteria 09/14/2024 11:22 AM CDT [facility] Urine URINE SPECIMEN OBTAINED BY CLEAN CATCH PROCEDURE / Unknown Collection / Unknown 09/13/2024 1:12 PM CDT 09/13/2024 1:20 PM CDT Peña Mata MD MICROBIOLOGY - GENERAL O RDERABLES Final Result [facility] CLIA # [id number] [address] [address] [place] [address] * EXTRA TUBE (BLUE) (09/12/2024 9:32 PM CDT) Only the most recent of2 resultswithin the time period is included. Blood Venipuncture / Unknown 09/12/2024 9:32 PM CDT 09/12/2024 10:59 PM CDT External Provider [facility] HEMATOLOGY ORDERABLES Jana l Result Performing Organization Address City/State/[facility] Co de Phone Number [facility] [id number] [address] [place] [address] * Critical Care (09/12/2024 9:09 PM CDT) [...] 0.12(H) <=0.08 ng/mL 08/30/2024 6:32 AM CDT [facility] [employer] [facility] Blood Venipuncture / Unknown 08/30/2024 5:27 AM CDT 08/30/2024 5:41 AM CDT Narrative [facility] LABORATORY [facility] - 08/30/2024 6:32 AM CDT The utility [...] Ferrara MD CHEMISTRY ORDERABLES Final Resul t [facility] LABORATORY SERVICES [facility] # [id number] [address] [place] [address] * CT CHEST WO CONTRAST (08/18/2024 11:42 [...] No significant pulmonary pathology. Narrative Procedure Note Blacna Shell MD - 08/18/2024 IMPRESSION: Please see [...] Tovar MD CT ORDERABLES Final Result * (ABNORMAL) LIPID PANEL (02/19/2024 5:29 AM FOOD SAFETY SCIENTIST) CHOLESTEROL 188 <200 mg/dL 02/19/2024 10:25 AM [facility] [employer] [facility] TRIGLYCERIDE 104 <150 mg/dL 02/19/2024 10:25 AM [facility] [employer] [facility] HDL 36(L) 40 - 59 mg/dL 02/19/2024 10:25 AM [facility] [employer] [facility] LDL CALCULATED 131(H) <100 mg/dL 02/19/2024 10:25 AM [facility] NON-HDL CHOLESTEROL 152(H) <130 mg/dL 02/19/2024 10:25 AM [facility] [employer] [facility] Blood Venipuncture / Unknown 02/19/2024 5:29 AM FOOD SAFETY SCIENTIST 02/19/2024 5:34 AM FOOD SAFETY SCIENTIST [facility] LABORATORY [facility] - 02/19/2024 10:25 AM FOOD SAFETY SCIENTIST TOTAL CHOLESTEROL mg/dL Desirable <200 Borderline high [...] Artis MD CHEMISTRY ORDERABLES Final R esult [facility] LABORATORY SERVICES [facility] CLIA # [id number] [address] [place] [address] * MICROALBUMIN/CREATININE RATIO, RANDOM UR (02/26/2023 3:01 PM FOOD SAFETY SCIENTIST) Creatinine, Urine 199 20 - 275 mg/dL [...] category. FASTING:UNKNOWN FASTING: UNKNOWN Test Performed at: [facility] [address] [address] Emily Dumont MD Urine URINE SPECIMEN OBTAINED BY CLEAN CATCH PROCEDURE / Unknown 02/26/2023 3:01 PM FOOD SAFETY SCIENTIST 02/26/2023 3:02 PM FOOD SAFETY SCIENTIST Ryann Burk MD URINE ORDERABLES Final Result [facility] [phone] [facility] [address] [address] [address] * CERV/VAG CYTO SCREEN PAP W/HPV (01/06/2023 12:00 AM CDT) CLINICAL INFORMATION [facility] Comment:None given LAST MENSTRUAL PERIOD [facility] Comment:NONE GIVEN PREV PAP: [facility] Comment:NONE GIVEN PREV BX: [facility] Comment:NONE GIVEN SOURCE [facility] Comment:ENDOCERVIX ADEQUACY: [facility] Comment: Satisfactory for evaluation. Endocervical/transformation zone component present. Age and/or menstrual status not provided PAP INTERP [facility] Comment: Cytology Results: Negative for intraepithelial lesion or malignancy. COMMENT (PAP TEST) [facility] Comment: This Pap test has been evaluated with computer assisted technology. SALES CONSULTANT: Irving est [facility] Gasca Comment: DELANO SUH(ASCP) CT screening location: [place] [address] [address] EXPLANATORY NOTE Que [facility] Solisa Comment: EXPLANATORY NOTE: The Pap is a [...] information. HPV E6/E7 Not Detected Not Detected [facility] Comment: Methodology: Floating Derrick Operator-Mediated Amplification This assay detects E6/E7 viral messenger RNA (mRNA) from 14 high-risk HPV types (16,18,31,33,35,39,45,51,52,56,58,59,66,68). Cervical sources are required for HPV testing. If a vaginal source from a patient who has had a total hysterectomy with removal of cervix was submitted, please contact the testing laboratory for alternative testing options. For additional information, please refer to http://education.Apps & Zerts/faq/QSW274n4 (This link if provided for information/ educational purposes only.) Test Performed at: [facility] [address] [address] [place] [address] Emily RTAN Genital SWAB OF ENDOCERVIX / Unknown 01/06/2023 01/08/2023 10:07 AM CDT Ryann Burk MD PATHOLOGY/CYTOLOGY ORDERABLES Fi nal Result [facility] [phone] [facility] [address] [address] [place] [address] * MAMMO DIAGNOSTIC UNI RIGHT W OR [...] Heart Failure Problem 05/12/2024 Insurance [place]ID [place] * Guarantor: LE DIAZ Account Type Relation to Patient Date of Phone Billing Address Personal/Family [address] [place] [address] RX INFOCROSSING Medicaid RX [employer] (INTERNAL) [facility] Plans MEDICAID 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 Advance Directive Living Will 07/23/2023 11:03 AM Advance Directive Living Will Advance Directive POA 07/23/2023 11:03 AM A dvance Directive POA * Full Code (Latest Code Status on File) Date Activated Date Inactivated Comments 11/13/2024 3:15 PM 11/16/2024 3:49 PM * Full Code Date Activated Date Inactivated Comments 11/08/2024 7:53 AM 11/10/2024 4:09 PM * Full Code Date Activated Date Inactivated Comments 11/05/2024 7:39 PM 11/07/2024 5:10 PM * Full Code Date Activated Date Inactivated Comments 10/31/2024 10:41 AM 11/04/2024 6:24 PM * Full Code Date Activated Date Inactivated Comments 10/26/2024 5:31 PM 10/29/2024 2:42 PM Care Teams Casing Puller Relationship Specialty Start Date End Date Delta Wade MD [address] [address] PCP - General Family Practice 03/25/24
--- OUTSIDE RECORDS SUMMARY | 2024-11-17 00:55 | XMS_ITS | CCD ---
Author Name Interface, [id number] lity Address [address] [facility] [place] [address] [facility] Address [address] [place] [address] Care Team Providers Care Lmft Name Role Phone Anika VALLADARES, Allen Unavailable [...]
--- OUTSIDE RECORDS SUMMARY | 2024-11-17 00:55 | XMS_ITS | Encounter Summary ---
Author Organization [facility] Address [address] Gonzalez: Epic Prelude ADT [place] [address] Care Team Providers Care Sourcing Consultant Name Role Phone Delta Wade MD Primary Care Provider [phone] Encounter Details Date Type Department Care Team [...] you attend [employer] or oriental orth[employer] services? 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 Gender Identity Not on file Sexual Orientation Not on file documented as of this encounter Plan of Treatment Upcoming Encounters Date Type Department Care Team (Late st Contact Info) Description 01/12/2025 1:40 PM CDT Office Visit [facility] [address] [facility] [address] [place] [address] Tresa Stockton, [facility] [address] [facility] [address] [place] [address] 04/19/2025 10:30 AM FIRE MANAGER Office Visit [facility] [address] [place] [phone] James [place] MD [address] [place], [place] [address] Gricel Mcgovern PA [address] [place] [phone] documented as of this encounter Goals Goal [...] as of this encounter Care Teams Sourcing Consultant Relationship Specialty Start Date End Date Delta Wade MD [address] [facility] [address] [place] [address] PCP - General Family Practice 03/25/24 documented as of this encounter
[2024-11-17 00:58] VITALS: BP 161/106; PULSE 89; RESP 20; TEMP 36.9; O2SAT 98; BMI 39.4
[2024-11-17 01:10] VITALS: BP 165/99; PULSE 88; O2SAT 98
[2024-11-17] MEDS: HYDROmorphone 0.5 MG/0.5 ML INJ 1.5 MG IM (01:42)
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
== END 2024-11-17 02:16 | disposition home or self-care (01) ==
PROVIDERS: Emergency Provider Student in an Organized Health Care Education/Training Program; PCP Family Medicine
DX: M54.50 Low back pain, unspecified (principal); W19.XXXA Unspecified fall, initial encounter; Z79.01 Long term (current) use of anticoagulants; Z79.4 Long term (current) use of insulin; Z79.85 Long-term (current) use of injectable non-insulin antidiabetic drugs; Z87.891 Personal history of nicotine dependence; I25.110 Atherosclerotic heart disease of native coronary artery with unstable angina pectoris; J44.9 Chronic obstructive pulmonary disease, unspecified; I10 Essential (primary) hypertension; E11.9 Type 2 diabetes mellitus without complications
CPT/HCPCS: 96372; 99284; J1171

== ENCOUNTER 2024-12-13 22:51 | Emergency (ER) | payer MEDICAID, SELFPAY ==
--- OUTSIDE RECORDS SUMMARY | 2020-06-27 10:30 | XMS_ITS | Continuity of Care Document ---
Author Organization [facility] Address [address] [place] [address] Phone Care Team Providers Care Research And Development Tester Name Role Phone Unavailable Unavailable Unavailable Allergies, [...] - Active Procedures Procedure Date OFFICE/OUTPATIENT VISIT, [facility] Advance Directives Directive Yes / No Effective Date File Name No Information Encounters Encounter Description Practice Location Reason(s) For Visit Diagnoses Date Provider Providers Copied on Encounter OFFICE/OUTPA TIENT VISIT, [facility], [address], [place], [place], [address] , [place] tel: [phone] [facility] follow up [...] libertarian ID Authoriza dioni(s) Medicaid - Medical [id number] Social History Type Description Quantity Date Captured [...] her vagina and is being managed at [facility]. Patient has HTN, hip pain, [...] her vagina and is being managed at [facility]. Patient has HTN, hip pain, [...]
--- OUTSIDE RECORDS SUMMARY | 2024-07-12 09:00 | XMS_ITS ---
Author Organization [facility] Address [address] [place] [address] Care Team Providers Care Cylinder Worker Name Role Phone Delta Wade Primary Care Provider Jose Cruz Harvey [phone] REASON FOR VISIT [phone] Encounters Encounter Location Date Provider Diagnosis [facility] [address] [place] [address] [place] [address] 07/12/2024 Jose Cruz Forde Plan Of Treatment No Information Progress Notes * GIANFRANCO DIAZDOB: [birth year] (59 yo F)Acc No.[id number]:07/12/2024 Pulmonary Function Test Patient: Jahaira GIANFRANCO HANNA Provider: Abdirahman Forde MD :1965 A ge:59 Y S ex:Female Date:07/12/2024 Address:[address] [place], [place] [phone] Pcp:Delta Wade Subjective: * Chief Complaints: * 6 [id number] Billing Information: * Procedure Codes: * Electronic signature of Natasha Forde MD on 12/13/2024 at 10:59 PM CDT Sign off status: Pending * Provider: Abdirahman Forde MD Date: 0 07/12/2024 Generated for Mani contreras/Moshe/eTransmitting on: 0 12/13/2024 10:59 PM CDT
--- OUTSIDE RECORDS SUMMARY | 2024-07-12 10:00 | XMS_ITS ---
Author Organization [facility] Address [address] [place] [address] Care Team Providers Care Dry Color Tester Name Role Phone Delta Wade Primary Care Provider Jose Cruz Harvey [phone] REASON FOR VISIT [phone] Encounters Encounter Location Date Provider Diagnosis [facility] [address] [place] [address] [place] [address] 07/12/2024 Jose Cruz Forde Plan Of Treatment No Information Progress Notes * GIANFRANCO DIAZDOB: [birth year] (59 yo F)Acc No.[id number]:07/12/2024 Progress Notes Patient: Jahaira GIANFRANCO HANNA Provider: Abdirahman Forde MD :1965 A ge:59 Y S ex:Female Date:07/12/2024 Address:[address] [place], [place] [phone] Pcp:Delta Wade Subjective: * Chief Complaints: * 6 [id number] Billing Information: * Procedure Codes: Care Plan Details* * Electronic signature of Natasha Forde MD on 12/13/2024 at 10:58 PM CDT Sign off status: Pending * Provider: Abdirahman Forde MD Date: 07/12/2024 Generated for Sydnii ng/Fatereg/eTransmitting on: 0 12/13/2024 10:58 PM CDT
--- OUTSIDE RECORDS SUMMARY | 2024-07-13 04:30 | XMS_ITS ---
Author Organization [facility] Address [address] [place] [address] Care Team Providers Care Mint Wafer Depositor Name Role Phone ( [facility] ), PHYSICIAN NOT IDENTIFIED Primary Care Provider DR. Dominguez Pate Unavailable [phone] REASON FOR VISIT cavity on lower- Social History Sex Assigned At : Social History Observation Description Sex Assigned At Female Encounters Encounter Location Date Provider Diagnosis [address] [place] [address] Dental Clinic [address] [place] [phone] 07/13/2024 Dominguez Mckay Plan Of Treatment No Information Progress Notes * JOE CurtB:1965 (59 yo F)Acc No.[id number]:07/13/2024 Patient: Le Colindres Provider: Jahaira Mckay DDS :1965 A ge:59 Y S ex:Female Date:07/13/2024 Address:[address] [place], [place] [phone] Pcp:PHYSICIAN NOT IDENTIFIED ( [facility] ) Subjective: * Chief Complaints: * C avity on lower- Billing Information: * Procedure Codes: * Electronic signature of DR. Dominguez Mckay DDS on 12/13/2024 at 10:59 PM CDT Sign off status: Pending * Provider: Jahaira Mckay DDS Date: 0 07/13/2024 Generated for Printi ng/Faxing/eTransmitting on: 0 12/13/2024 10:59 PM CDT
--- OUTSIDE RECORDS SUMMARY | 2024-07-19 03:00 | XMS_ITS ---
Author Organization [facility] Address [address] [place] [place] [address] Care Team Providers Care Item Processor Name Role Phone Delta Wade Primary Care Provider Jose Cruz Harvey [phone] REASON FOR VISIT [phone] Encounters Encounter Location Date Provider Diagnosis [facility] [address] [place] [address] [place] [address] 07/19/2024 Jose Cruz Forde Plan Of Treatment No Information Progress Notes * GIANFRANCO DIAZDOB: 6 (59 yo F)Acc No.[id number]:07/19/2024 Pulmonary Function Test Patient: Jahaira GIANFRANCO HANNA Provider: Abdirahman Forde MD :1965 A ge:59 Y S ex:Female Date:07/19/2024 Address:[address] [place], [place] [phone] Pcp:Delta Wade Subjective: * Chief Complaints: * 6 [id number] Billing Information: * Procedure Codes: * Electronic signature of Natasha Forde MD on 12/13/2024 at 10:59 PM CDT Sign off status: Pending * Provider: Abdirahman Forde MD Date: 0 07/19/2024 Generated for Mani contreras/Moshe/eTransmitting on: 0 12/13/2024 10:59 PM CDT
--- OUTSIDE RECORDS SUMMARY | 2024-07-19 05:10 | XMS_ITS ---
Author Organization [facility] Address [address] [place] [address] Care Team Providers Care Clothespin Drier Operator Name Role Phone Delta Wade Primary Care Provider Jose Cruz Harvey [phone] REASON FOR VISIT abnormal chest CT Medications [...] Encounters Encounter Location Date Provider Diagnosis [facility] [address] [place] [address] [place] [address] 07/19/2024 Jose Cruz Forde Solitary pulmonary nodule [...] remission (ICD-10 - F17.211) Patient smoked a xdjy-wnk-eba for 45 years. She has been abstinent [...] cigaret taiwo, in remission Patient smoked a pavt-xoe-bzj for 45 yea rs. She has been [...] ION 07/08/24 but was hospitalized twice at [facility] and unable to complete her pre-surgical testing. [...] DIAZ, GIANFRANCO PageDOB: 6 (59 yo F)Acc No.[id number]:07/19/2024 Progress Notes Patient: GAINFRANCO GARCIA Provider: Abdirahman Forde MD :1965 A ge:59 Y S ex:Female Date:07/19/2024 Address:[address] [place], [place] [phone] Pcp:Delta Wade Subjective: * Chief Complaints: * [...] ION 07/08/24 but was hospitalized twice at [facility] and unable to complete her pre-surgical testing. ION rescheduled for 07/22/24 -ION CT. * ROS: Juliette cain of systems of [facility] has been reviewed and scanned in [...] 1 TABLET BY MOUTH EVERY DAY Oral Ewf-FkwnmkTZUQIuoegle-Amzcihaqkgvyw 5-325 MG Tablet TAKE 1 TABLET BY [...] cigarettes, in remission Notes: Patient smoked a agmm-srd-jow for 45 years. She has been abstinent [...] of Natasha Forde MD on 12/13/2024 at 01:20 PM CDT Sign off status: Pending * Provider: Abdirahman Forde MD Date: 07/19/2024 Generated for Mani contreras/Moshe/Adrianitting on: 0 12/13/2024 01:20 PM CDT
--- OUTSIDE RECORDS SUMMARY | 2024-07-22 05:00 | XMS_ITS ---
Author Organization [facility] Address [address] [place] [address] Care Team Providers Care Manufacturing Engineer Name Role Phone Delta Wade Primary Care Provider Jose Cruz Harvey [phone] Encounters Encounter Location Date Provider Diagnosis [facility] [address] [place] [address] [place] [address] 07/22/2024 Jose Cruz Forde Plan Of Treatment No Information Progress Notes * GIANFRANCO DIAZDOB: [birth year] (59 yo F)Acc No.[id number]:07/22/2024 Patient: Jahaira HANNA GIANFRANCO Page Provider: Abdirahman Forde MD :1965 A ge:59 Y S ex:Female Date:07/22/2024 Address:[address] [place], [place] [phone] Pcp:Delta Wade * Electronic signature of Natasha Forde MD on 12/13/2024 at 01:20 PM CDT Sign off status: Pending * Provider: Abdirahman Forde MD Date: 07/22/2024 Generated for Printi ng/Faxing/eTransmitting on: 12/13/2024 01:20 PM CDT
--- OUTSIDE RECORDS SUMMARY | 2024-08-23 05:00 | XMS_ITS ---
Author Organization [facility] Address [address] [place] [phone] Care Team Providers Care Overnight Cashier Name Role Phone ( [facility] ), PHYSICIAN NOT IDENTIFIED Primary Care Provider DR. Dominguez Pate Unavailable [phone] REASON FOR VISIT TA - Filling Social History Sex Assigned At : Social History Observation Description Sex Assigned At Female Encounters Encounter Location Date Provider Diagnosis [address] [place] [address] [facility] [address] [place] [phone] 08/23/2024 Domingeuz Mckay Plan Of Treatment No Information Progress Notes * DIAZZhangaDOB:1965 (59 yo F)Acc No.[id number]:08/23/2024 Patient: Le Colindres Provider: Jahaira Mckay DDS :1965 A ge:59 Y S ex:Female Date:08/23/2024 Address:[address] [place], [place] [phone] Pcp:PHYSICIAN NOT IDENTIFIED ( [facility] ) Subjective: * Chief Complaints: * T A - Filling Billing Information: * Procedure Codes: * Electronic signature of DR. Dominguez Mckay DDS on 12/13/2024 at 10:58 PM CDT Sign off status: Pending * Provider: Jahaira Mckay DDS Date: 08/23/2024 Generated for Printi ng/Faxing/eTransmitting on: 0 12/13/2024 10:58 PM CDT
--- OUTSIDE RECORDS SUMMARY | 2024-09-07 03:30 | XMS_ITS ---
Author Organization [facility] Address [address] [place] [phone] Care Team Providers Care Technical Sme Name Role Phone ( [facility] ), PHYSICIAN NOT IDENTIFIED Primary Care Provider DR. Dominguez Pate Unavailable [phone] REASON FOR VISIT TA causing alot of [place]-pt wants filling done- told pt it was a limited not restore appt Social History Sex Assigned At : Social History Observation Description Sex Assigned At Female Encounters Encounter Location Date Provider Diagnosis [address] [place] [address] Dental Clinic [address] [place] [phone] 09/07/2024 Dominguez Mckay Plan Of Treatment No Information Progress Notes * Zhang DIAZIvettB:1965 (59 yo F)Acc No.[id number]:09/07/2024 Patient: Le Colindres Provider: Jahaira Mckay DDS :1965 A ge:59 Y S ex:Female Date:09/07/2024 Address:[address] [place], [place] [phone] Pcp:PHYSICIAN NOT IDENTIFIED ( [facility] ) Subjective: * Chief Complaints: * T A causing alot of [place]-pt wants filling done- told pt it was a limited not restore appt Billing Information: * Procedure Codes: * Electronic signature of DR. Dominguez Mckay DDS on 12/13/2024 at 01:20 PM CDT Sign off status: Pending * Provider: Jahaira Mckay DDS Date: 0 09/07/2024 Generated for Mani contreras/Moshe/Adrianitting on: 0 12/13/2024 01:20 PM CDT
--- OUTSIDE RECORDS SUMMARY | 2024-12-09 17:59 | XMS_ITS | Encounter Summary ---
Author Organization [facility] Address 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 Phone Delta Wade MD Primary Care Provider [phone] Reason for Referral * Eval and Treat (2-4 Days) - Pending Review Specialty Diagnoses / Procedures Referred By Contac t Referred To Contact Diagnoses Acute respiratory failure with hypercapnia (CMS/HCC) Procedures OR OFFICE/OUTPATIENT ESTABLISHED MOD MDM 30 MIN OR OFFICE/OUTPATIENT NEW MODERATE MDM 45 MINUTES Otis Chen MD [address] [place] [address] Phone: tel: fax: Referral ID Status Reason Start Date Expiration Date V isits Requested Visits Authorized [id number] Pending Review 12/13/2024 12/13/2025 1 1 Reason for Visit * Reason Comments Shortness of Breath Hx of COPD. Increasi ng Sob for last 2hrs. Labored breathing in triage. SPO2 90% on home 3L NC * Auth/Cert (Routine) Specialty Diagnoses / Procedures Referred By Contac t Referred To Contact Cardiology Efraín Dey DO [address] [place] [address] Phone: tel: fax: [facility] 4D Surgery Heart Lung [address] [place] [address] Phone: tel: fax: Referral ID Status Reason Start Date Expiration Date Visits Re quested Visits Authorized [id number] 1 1 Encounter Details Date Type Department Care Team (Late st Contact Info) Description 12/09/2024 5:59 PM CDT - 12/13/2024 12:00 PM CDT Hospital Encounter [facility] 4D Surgery Heart Lung [address] [place] [address] Mikey Rudolph MD [address] [place] [id number] Efraín Dey DO [address] [place] [address] Otis Chen MD [address] [place] [address] COPD exacerbation ([facility]) Discharge Disposition: Home or Self Care Social [...] often do you attend chur ch or latter-day services? More than 4 times per year [...] with the people in your life? No 11/22/2024 Food Insecurity Answer Date Recorded Do you find you are eating l ess than you should because you can t pay for food? No 11/22/2024 Transportation Needs Answer Date Record ed Have you gone without health care because you didn t have a way to get there? 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 No 2024 Housing Stability Answer Date Recorded Do you worry you won t have a steady place to sleep or struggle to pay rent or mortgage? No 11/22/2024 Utility Needs Answer Date Recorded Do you have difficulty payin g for utility costs (electric, water or gas bills)? No 11/22/2024 Medication Needs Answer Date Recorded Have you skipped taking medi cation due to cost or worry you can t afford new medications? No 11/22/2024 Feeling Safe Answer Date Recorded Are you in a relationship wi th someone who hurts you emotionally and/or physically? 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 Gender Identity Not on file Sexual Orientation Not on file documented as of this encounter Last Filed Vital Signs Vital Sign Reading Time Taken Comments Blood Pressure 115/66 12/13/2024 7:10 AM CDT Pulse 70 12/13/2024 7:10 AM CDT Temperature 36.2 C (97.1 F) 12/13/2024 7:56 AM CDT Respiratory Rate 32 12/13/2024 3:04 AM CDT Oxygen Saturation 95% 12/13/2024 7:10 AM CDT Inhaled Oxygen Concentration - - Weight 99.2 kg (218 lb 11.1 oz) 12/13/2024 3:04 AM CDT Height 162.6 cm (5' 4 ) 12/10/2024 12:2 5 AM CDT Body Mass Index 37.54 12/10/2024 12:25 AM CDT documented in this encounter Discharge Summaries * Otis Chen MD - 12/13/2024 10:[address] [facility] Hospitalist- Discharge Summary Le Diaz 59 y.o. female 1965 CSN: [id number] Date of Admission: 12/09/2024 Date of Discharge: 12/13/2024 LOS: 4 days Discharging Physician: Otis Chen MD PCP: Delta Wade MD Code Status at Discharge: Full Code Dispo: Home Labs and studies from this hospitalization needing follow up: Pending Labs Order Current Status BLOOD GAS VENOUS Collected (12/09/242013) BLOOD CULTURE Preliminary result BLOOD CULTURE Preliminary result BLOOD CULTURE Preliminary result BLOOD CULTURE Preliminary result Blood cult negative at 72 hrs Abnormal Imaging: cxr DATE/TIME OF EXAM: 12/09/2024 6:27 PM REASON FOR EXAM: Shortness of Breath SOB DIAGNOSIS: See Reason for Exam COMPARISON: 12/01/2024 FINDINGS: - Lines/tubes: None. - Cardiomediastinal: Contours are within normal limits. - Lungs/pleura: Subtle interstitial/streaky opacity in the left lung base. Within the limitations of body habitus the lungs otherwise appear grossly clear. Hemidiaphragms are well visualized; no appreciable pleural effusion or pneumothorax. - Bones and soft tissues: No acute abnormalities. Fusion hardware lower cervical spine. - Additional comments: None. IMPRESSION: Subtle streaky airspace disease in left lung base is nonspecific and could reflect atelectasis or an acute infiltrate. Exam Ended: 12/09/24 18:27 CDT Exam: CTA CHEST W AND/OR WO CONTRAST Date/Time of Exam: 12/09/2024 10:39 PM REASON FOR EXAM: Pulmonary embolism (PE) suspected, high prob. DIAGNOSIS: Acute respiratory failure with hypercapnia (CMS/HCC); COPD with exacerbation (CMS/HCC); Chest pain, unspecified type; Infiltrate of lung present on chest x-ray. Technique: CTA of the chest was performed prior to and/or following the administration of intravenous contrast. Post-processing was performed, including sagittal and coronal reformations and 3-D reconstruction. Contrast (if used): 85 ml Isovue 300 Findings: Comparison is made to the prior exam performed 11/27/2024. The examination is limited by artifact from the patient's arm by their side and motion artifact. No evidence of central pulmonary filling defect is identified. Evaluation of the segmental and subsegmental branches is severely limited. There is no pulmonary enlargement or right ventricular strain to suggest pulmonary arterial hypertension. Coronary artery disease is noted. The heart size is normal. Mild atherosclerotic changes in the thoracic aorta are noted. There is minimal pericardial thickening in the lung bases with some adjacent atelectasis. There is masslike round consolidation in the left lung base which is unchanged since 12/17/2024. The central airways are patent. There is no pneumothorax or pleural effusion. No pathologic mediastinal or hilar adenopathy is identified. The liver appears enlarged but is incompletely evaluated. There is a ventral hernia containing the anterior aspect of the left hepatic lobe. Imaged abdominal contents are otherwise unremarkable. ACF changes in thoracic spondylosis are again noted. IMPRESSION: Significantly limited examination due to motion artifact and streak artifact from the patient's right arm either side. 1. No evidence of central pulmonary embolus. Evaluation of the segmental and subsegmental branches is really nondiagnostic. Minimal peribronchial thickening in the lung bases could represent mild chronic bronchitis. 2. Masslike rounded consolidation in the left lung base, grossly unchanged since July, likely representing a chronic process. 3. Suspected hepatomegaly. 4. Ventral hernia containing the anterior left hepatic lobe. 5. Additional incidental findings as above. Exam Ended: 12/09/24 22:39 CDT Follow up with PCP: Follow-up: You must follow up with Delta Wade MD in 3-5 days Recommend INR Follow up with Consultants: With cardiology and wound care as per their directives Discharge Condition: improved to baseline Primary Discharge Diagnosis: COPD exacerbation (CMS/HCC) Other Active medical issues also addressed during this admission: Active Hospital Problems Diagnosis Infiltrate of lung present on chest x-ray COPD exacerbation ([facility]/HCC) Essential hypertension Morbid obesity due to excess calories ([facility]/HCC) CAD (coronary atherosclerotic disease) Insulin dependent type 2 diabetes mellitus ([facility]/HCC) Chronic combined systolic and diastolic congestive heart failure ([facility]/HCC) Chronic respiratory failure with hypoxia, on home O2 therapy ([facility]) History of pulmonary embolism Type 2 diabetes mellitus without complication, without long-term current use of insulin ([facility]/HCC) Opioid dependence ([facility]/HCC) Bipolar affective disorder ([facility]/HCC) Hypertension Resolved Hospital Problems No resolved problems to display. HOSPITAL COURSE: Please see H and P for full details on admission, symptoms and initial care. Patient was seen and examined at the bedside. Le Diaz is a 59 y.o. female with known morbid obesity, chronic combined CHF, COPD, diabetes mellitus, history of PE, hypertension who is being admitted for further evaluation of recurrent COPDexacerbation. Patient was discharged from our facility roughly 7 days ago for the same issue. Patient has had a numerous amount of admissions this year for recurrent issues with COPD. Patient states her shortness of breath began shortly before arrival. She has had increased cough as well. She feelsthat her belly is pushing up into her chest wall making it difficult to breathe. Typically patient comes in she always requires BiPAP temporarily. Otherwise patient denies any new complaints over her normal issues with COPD. Her clinical course is very similar to today where she typically requires BiPAP, is transition to nasal cannula and is typically discharged somewhere between 48 hours and 5 days later. CTA chest shows Patient's labs are at baseline with no acute abnormality. VBG is otherwise reassuring. Will check respiratory PCR and sputum cultures for completeness sake. Will continue COPD treatment with cefepime given amount of exacerbations, breathing treatments and steroids. 12/10 assigned, assumed care patient with acute hypoxic respiratory failure required BiPAP from 7 PMto 10 PM and has been subsequently placed on 4 L O2 per nasal cannula saturating 91-96% with no increased work of breathing. Chronically on warfarin she is for DVT PE in the last year and it is not therapeutic so we will start heparin drip and initiate increased warfarin as of 15 mg as patient beentaking 10 mg daily she reports compliance and her INR is 1.0 12/11 patient gluc is running 250s on insulin drip transition to glargine via D and every 4 hour high-dose sliding scale. Hypokalemia treated -12/12 warfarin now therapeutic, DC heparin On warfarin 10 mg daily INR 1+warf 15 mg->1.2+15 mg->2.2 +12.5 mg-> Addendum no patient was very somnolent check an ABG her CO2 is 58 slightly higher than she usually runs however her pH is compensated and staff now reported as alert and interactive and appropriate, continue to monitor 12/13 inr 2.4 resuming pt travel pta warfarin dose of 10 mg nightly for 3 nights then f/u wt PCP for inr and subsequent dosing R[place] medically stable for discharge home as planned today PCP COMMUNICATION : Delta Wade MD via [employer] communication MEDICATION CHANGES (significant): Meclizine 12.5 mg po tid Miconzole apply bid Ceftin 500 mgpo bid x 7 days Prednisone 40 mg po daily til see pcp then thereafter as per their directives Warfarin 10 mg q evev for 3 days then followup INR with PCP and thereafter as per PCP Glargine 45 units subcut bid MEDICATION RECONCILIATION: Current and discharge medications reviewed and reconciled: Yes Consultants: IP CONSULT TO CASE MANAGEMENT IP CONSULT TO WOUND/SKIN CARE TEAM IP CONSULT TO PASTORAL SERVICES IP CONSULT TO IV TEAM IP CONSULT TO IV TEAM IP CONSULT TO IV TEAM IP CONSULT TO WOUND/SKIN CARE TEAM IP CONSULT TO IV TEAM Procedures performed: 12/11 1824 INSERT PERIPHERAL IV 12/10 1540 INSERT MIDLINE IV DISCHARGE MEDICATIONS: Medication List PAUSE taking these medications empagliflozin 10 mg tablet Wait to take this until your doctor or other care provider tells you to start again. Commonly known as: JARDIANCE Take 1 Tablet (10 mg) by mouth daily in the morning. Signed by: Dr. Pio Anderson Quantity: 30 Tablet Refills: 0 methocarbamoL 500 mg tablet Wait to take this until your doctor or other care provider tells you to start again. Commonly known as: ROBAXIN Take 1 Tablet (500 mg) by mouth every 6 hours as needed for Spasm. Signed by: Dr. Sarah Lee Quantity: 20 Tablet Refills: 0 ranolazine ER 500 mg Extended Release 12 hour tablet Wait to take this until your doctor or other care provider tells you to start again. Commonly known as: RANEXA Take 1 Tablet (500 mg) by mouth every 12 hours. Signed by: Dr. Pio Borges Quantity: 60 Tablet Refills: 1 START taking these medications cefUROXime axetil 500 mg tablet Commonly known as: CEFTIN Take 1 Tablet (500 mg) by mouth every 12 hours for 7 days. Signed by: Dr. Sarah Chen Quantity: 14 Tablet Refills: 0 insulin glargine-yfgn 100 unit/mL pen syringe Inject 45 Units by subcutaneous injection 2 times daily. Signed by: Dr. Sarah Chen Quantity: 15 mL Refills: 0 meclizine 12.5 mg tablet Commonly known as: ANTIVERT Take 1 Tablet (12.5 mg) by mouth 3 times daily. Signed by: Dr. Sarah Chen Quantity: 15 Tablet Refills: 0 miconazole 2 % Cream Commonly known as: KIN,MICOTIN,REMEDY AF Apply to affected area 2 times daily. Signed by: Dr. Sarah Chen Quantity: 15 Gram Refills: 0 predniSONE 20 mg tablet Commonly known as: DELTASONE Take 2 Tablets (40 mg) by mouth daily with breakfast. Until followup with PCP in 3 days then thereafter per their directives Signed by: Dr. Sarah Chen Quantity: 10 Tablet Refills: 0 CHANGE how you take these medications triamcinolone acetonide 0.1 % Ointment Commonly known as: KENALOG What changed: when to take this reasons to take this Apply to affected area 2 times daily. Signed by: Dr. Sarah Chen Quantity: 15 Gram Refills: 0 CONTINUE taking these medications acetaminophen 325 mg tablet Commonly known as: TYLENOL Take 2 Tablets (650 mg) by mouth every 6 hours as needed for Pain, Mild / Temperature (.). Signed by: Dr. Sarah Lee Refills: 0 amitriptyline 25 mg tablet Commonly known as: ELAVIL Take 25 mg by mouth daily. Refills: 0 aspirin 81 mg Tablet, Chewable [...] Myron Burk Quantity: 1 Each Refills: 0 izlicyuykx-nzknjsnqvpmewe-ahpsfhgcne 160-9-4.8 mcg/actuation HFA Aerosol Inhaler Commonly known [...] Shortness of Breath or Wheezing. Refills: 0 lidocaine 5 % Adhesive Patch, Medicated Commonly known as: LIDODERM Apply 1 Patch to affected area every 24 hours. Signed by: Dr. Jahaira Loaiza Quantity: 30 Patch Refills: 0 LORazepam 0.5 mg tablet Commonly [...] 30 Tablet Refills: 0 naloxone 4 mg/spray [place], Non-Aerosol Commonly known as: NARCAN EMERGENCY USE [...] Myron Burk Quantity: 1 Each Refills: 0 rOPINIRole 0.5 mg tablet Commonly known as: REQUIP Take 0.5 mg by mouth daily at bedtime. Refills: 0 sacubitriL-valsartan 24-26 mg Tablet Commonly known as: ENTRESTO Take 1 Tablet by mouth 2 times daily. Signed by: Dr. Pio Anderson Quantity: 60 Tablet Refills: 0 sertraline 50 mg tablet Commonly known as: ZOLOFT Take 50 mg by mouth daily. Refills: 0 Ventolin HFA 90 mcg/actuation inhaler Take 2 Puffs by inhalation every 6 hours as needed. Refills: 0 Generic drug: albuterol sulfate warfarin 10 mg tablet Commonly known as: COUMADIN Take 1 Tablet (10 mg) by mouth late in the day for 14 days. Signed by: Dr. Kingsley Nix Quantity: 14 Tablet Refills: 0 zinc OXIDE-cod liver oil 40 % Paste Commonly known as: DESITIN Apply to affected area see administration instructions. Signed by: Dr. Severo Blas Quantity: 57 Gram Refills: 0 STOP taking these medications Lantus Solostar U-100 Insulin 100 unit/mL (3 mL) solution for injection Generic drug: insulin glargine potassium CHLORIDE 10 mEq Extended Release tablet Commonly known as: KLOR-CON Where to Get Your Medications These medications were sent to [facility]/pharmacy #[id number] - [place], [place] - [address] [address] Hours: M-F [id number] Sat 1722-5098 Sun closed cefUROXime axetil 500 mg tablet insulin glargine-yfgn 100 unit/mL pen syringe meclizine 12.5 mg tablet miconazole 2 % Cream predniSONE 20 mg tablet triamcinolone acetonide 0.1 % Ointment Future Appointments Date Time Provider Department Center 12/20/2024 2:00 PM Gricel Mcgovern PA [facility] 01/12/2025 1:40 PM Kath Tresa Pio, [employer] [facility] Activity level: up as tolerated Diet: DIET DIABETIC Wound Care: Not Applicable DISCHARGE EXAM: BP 115/66 Pulse 70 Temp 97.1 ??F (36.2 ??C) (Temporal) Resp (!) 32 Ht 5' 4 (1.626 m) Wt 99.2 kg (218 lb 11.1 oz) SpO2 95% BMI 37.54 kg/m?? Last documented weight: Weight: 99.2 kg (218 lb 11.1 oz) (12/13/24 0304) Reexamined at bedside 12/13 unchanged GENERAL APPEARANCE: Very sleepy and slow to awaken despite multiple attempts to awaken her, brieflyalerts oriented, affect appropriate,following commands HEENT: PERRL, conjunctiva/ lids clear, neck supple, NEURO:CN2-12 wnl, PERRL moving all extremities spontaneously and symmetrically, tardive dyskinetic head movements CARDIOVASCULAR: regular rate and rhythm, S1, S2 normal, no murmur, click, rub or gallop, LUNGS: clear to auscultation bilaterally anteriorly and posteriorly.No wheezing noted. No increasedwork of breathing noted at rest CHEST WALL EXAM: no crepitance, diffusely tender to moderate palpation BACK: symmetric excursion, without spinous or cva tenderness bilat ABDOMEN: benign, normoactive bowel sounds, no organomegaly or masses, no rebound , no guarding, Non distended, soft, nontender to mod diffuse palpation EXTREMITIES: extremities with 2+ bilateral pedal edema, no cyanosis, warm and well perfused,No calfor thigh erythema,tenderness or edema, SKIN: intact, no jaundice, IV sites clean, dry Home Healthcare Is this patient being discharged with Home Health? No Total time spent on discharge services today including examining and educating the patient and available family members, writing prescriptions and reviewing the discharge medication list, documenting this discharge summary and coordinating outpatient care and follow up required >30 minutes. documented in this encounter Discharge Instructions * Attachments The following attachments cannot be sent through Care Everywhere. * COPD: Exacerbation (Congolese) documented in this encounter Medications at Time of Discharge meclizine (ANTIVERT) 12.5 mg tablet Take 1 Tablet (12.5 mg) by mouth 3 times daily. 15 Tablet 5 miconazole (KIN,MICOTIN,REM MIKAELA AF) 2 % Cream Apply to affected area 2 times daily. 15 Gram 5 triamcinolone acetonide (KENALOG) 0.1 % Ointment Apply to affected area 2 times daily. 15 Gram 5 cefUROXime axetil (CEFTIN) 500 mg tablet Take 1 Tablet (500 mg) by mouth every 12 hours for 7 days. 14 Tablet 5 12/21/19 25 predniSONE (DELTASONE) 20 mg tablet Take 2 Tablets (40 mg) by mouth daily with breakfast. Until followup with PCP in 3 days then thereafter per their directives 10 Tablet 5 insulin glargine-yfgn 100 unit/mL pen syringe Inject 45 Units by subcutaneous injection 2 times daily. 15 mL 5 warfarin (COUMADIN) 10 mg tablet Take 1 Tablet (10 mg) by mouth late in the day for 14 days. 14 Tablet 5 12/17/19 25 sertraline (ZOLOFT) 50 mg tablet Take 50 mg by mouth daily. rOPINIRole (REQUIP) 0.5 mg tablet Take 0.5 mg by mouth daily at bedtime. amitriptyline (ELAVIL) 25 mg tablet Take 25 mg by mouth daily. lidocaine (LIDODERM) 5 % Adhesive Patch, Medicated Apply 1 Patch to affected area every 24 hours. 30 Patch 5 12/17/19 25 benzonatate (TESSALON) 100 mg capsule Take 1 Capsule (100 mg) by mouth every 4 hours as needed for Cough. 60 Capsule 1 5 zinc OXIDE-cod liver oil (DESITIN) 40 % Paste Apply to affected area see administration instructions. 57 Gram 5 acetaminophen (TYLENOL) 325 mg tablet Take 2 Tablets (650 mg) by mouth every 6 hours as needed for Pain, Mild / Temperature (.). 5 methocarbamoL (ROBAXIN) 500 mg tablet Take [...] hours. 60 Tablet 1 5 12/29/19 25 furosemide (LASIX) 80 mg tablet Take 1 [...] for Shortness of Breath or Wheezing. 5 insulin lispro (HumaLOG,ADMELOG) 100 unit/mL pen [...] unspecified HF chronicity, unspecified heart failure type ([facility]/HCC) TAKE 1 TABLET BY MOUTH EVERY DAY 30 Tablet 1 5 atorvastatin (LIPITOR) 40 mg tablet Take 40 mg by mouth daily at bedtime. 4 nitroglycerin (NITROSTAT) 0.4 mg Tablet, Sublingual [...] obstructive pulmonary disease, unspecified COPD type ([facility]),Oxygen dependent Face to Face completed within 30 days: yes Length of Need: 99 months By: Nasal Cannula Continuously at 3 L/min. 1 Each 4 naloxone (NARCAN) 4 mg/spray [place], Non-Aerosol EMERGENCY USE ONLY: Administer 1 spray (4 mg) in one nostril one time. May repeat in alternating nostrils every 2-3 min until responsive or EMS arrives. 2 Each 3 3 blood sugar diagnostic StripIndications: Type 2 diabetes mellitus without complication, without long-term current use of insulin ([facility]) Use to test blood glucose up to QID PRN symptoms. 100 Each 11 3 OneTouch Delica Plus Lancet 30 gauge USE TO test fasting blood glucose DAILY 3 Blood-Glucose Meter KitIndications:Ty pe 2 diabetes mellitus without complication, without long-term current use of insulin ([facility]) Use to test blood glucose up to TID PRN symptoms. 1 Each 3 documented as of this encounter Progress Notes * Raúl Rod MD - 12/13/2024 10:57 AM CDT Images from the original note were not included. Cardiology Progress note: LOS: LOS: 4 days Patient name: Le Diaz. [id number] Date of : 1965 4252/ Subjective: No acute cardiac issues overnight per the nursing staff. Physical Exam: BP 115/66 Pulse 70 Temp 97.1 ??F (36.2 ??C) (Temporal) Resp (!) 32 Ht 5' 4 (1.626 m) Wt 99.2 kg (218 lb 11.1 oz) SpO2 95% BMI 37.54 kg/m?? Gen: NAD; Alert and oriented, no acute distress HEENT: Normocephalic atraumatic CV: RRR, 1/6 systolic murmur present in precordium, audible s1/s2 Chest: Decreased breath sounds bilaterally with history of COPD Ext: Trace edema Past Medical History: Past Medical History: Diagnosis Date Anxiety Arthritis Arthropathy, unspecified, site unspecified Atrial flutter (CMS/HCC) Bipolar affective disorder ([facility]/HCC) Breast cancer ([facility]) 2001 R with R mastectomy, chemo and [...] smear Hyperlipidemia Ischemic cardiomyopathy Lower extremity edema CT (myocardial infarction) (CMS/HCC) 2015 Neuropathy NSTEMI (non-ST [...] ESOPHAGOGASTRODUODENOSCOPY performed by Mikey Moon MD at [facility] MAIN OR HX MASTECTOMY Right no lymph node removal HX PTCA stents (x3 in 2015, x2 in 2018) HX SPINAL SURGERY 2004 C4-5 fusion at [place], [place] HX SPLENECTOMY HX SURGICAL OTHER 1984 vaginal reconstruction HX TONSILLECTOMY HX VAGINA RECONSTRUCTION 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 INSERT MIDLINE IV 10/31/2024 INSERT MIDLINE IV 12/10/2024 OR CATH PLMT L HRT & ARTS W/NJX & ANGIO IMG S&I N/A 03/21/2024 Left heart cath performed by Kyler Helm MD at [facility] INVASIVE CARDIOLOGY OR CATH PLMT L HRT & ARTS W/NJX & ANGIO IMG S&I N/A 03/21/2024 Left Ventriculogram performed by Kyler Helm MD at [facility] INVASIVE CARDIOLOGY OR COLONOSCOPY FLX DX W/COLLJ SPEC WHEN PFRMD 01/23/2011 COLONOSCOPY performed by MACK BISWAS at [facility] ENDOSCOPY OR COLONOSCOPY FLX DX W/COLLJ SPEC WHEN PFRMD 09/19/2010 COLONOSCOPY performed by MACK BISWAS at [facility] ENDOSCOPY OR CORRECTION HAMMERTOE Left 07/20/2024 TOE(S) ARTHROPLASTY performed by Tereso Gil, DPM at [facility] MAIN OR OR EXPL PENETRATING WOUND SPX ABDOMEN/FLANK/BACK N/A 05/30/2023 LAPAROTOMY EXPLORATORY performed by Jose Cruz Montero DO at [facility] MAIN OR OR INJ SUBSTITUTE PARS PLANA/LIMBL W/WO ASPIR SPX Right 03/30/2024 EYE AIR FLUID GAS EXCHANGE performed by Eduardo Craven MD at [facility] SURGERY [place] [employer] [facility] RPR RPTD SPLEEN SPLENORRHAPHY W/WO PRTL SPLENECT N/A 05/30/2023 SPLENECTOMY performed by Jose Cruz Montero DO at [facility] MAIN OR OR VITRECTOMY [facility] PARS PLNA FOCAL ENDOLASER PC Right 03/30/2024 PARS PLANA VITRECTOMY WITH LASER performed by Eduardo Craven MD at [facility] SURGERY [facility] Allergies: Allergies Allergen Reactions Ketorolac Tromethamine Hives Prochlorperazine Hives and Seizure Propoxyphene Nausea and Vomiting Tramadol Hives Codeine Itching Propoxyphene N-Acetaminophen Nausea and Vomiting Current Medications: Current Facility-Administered Medications Medication Dose Route Frequency Provider Last Rate Last Admin [COMPLETED] rOPINIRole (REQUIP) tablet 0.25 mg 0.25 mg Oral daily BEDTIME Landon Blankenship MD 0.25 mg at 12/13/24 0120 warfarin (COUMADIN) tablet 10 mg 10 mg Oral daily LATE Otis Chen MD meclizine (ANTIVERT) tablet 12.5 mg 12.5 mg Oral TID Otis Chen MD 12.5 mg at 12/13/24 0841 miconazole (KIN,MICOTIN,REMEDY AF) 2 % topical cream Topical BID Otis Chen MD Given at 12/13/24 0839 [COMPLETED] insulin lispro (HumaLOG,ADMELOG) injection 10 Units 10 Units subCUT ONE time only Otis Chen MD 10 Units at 12/12/24 1153 HYDROcodone-acetaminophen (NORCO) 5-325 mg per tablet 1 Tablet 1 Tablet Oral every 8 hours PRN Otis Chen MD 1 Tablet at 12/13/24 0714 insulin glargine-yfgn injection 45 Units 45 Units subCUT BID Otis Chen MD 45 Units at 12/13/24 0843 [COMPLETED] insulin glargine-yfgn injection 5 Units 5 Units subCUT ONE time only Otis Chen MD5 Units at 12/12/24 1337 [COMPLETED] perflutren lipid microspheres (DEFINITY) 1.3 mL in sodium chloride 0.9% 10 mL injection0-10 mL IV intra-proc ONE time Toni Leija MD 3 mL at 12/12/24 1330 insulin lispro (HumaLOG,ADMELOG) injection 25 Units 25 Units subCUT TID WITH meals Otis Chen MD 25 Units at 12/13/24 0844 nitroglycerin (NITROSTAT) tablet 0.4 mg 0.4 mg Sublingual every 5 minutes PRN Otis Chen MD 0.4 mg at 12/12/24 1754 [COMPLETED] morphine 4 mg/mL injection 2 mg 2 mg IV ONE time only Otis Chen MD 2 mg at 12/12/24 1808 [DISCONTINUED] warfarin (COUMADIN) tablet 12.5 mg 12.5 mg Oral daily LATE Otis Chen MD 12.5 mg at 12/12/24 1733 [DISCONTINUED] insulin glargine-yfgn injection 38 Units 38 Units subCUT BID Otis Chen MD 38 Units at 12/12/24 0851 [DISCONTINUED] insulin lispro (HumaLOG,ADMELOG) injection 15 Units 15 Units subCUT TID WITH meals Otis Chen MD insulin lispro (HumaLOG,ADMELOG) injection 0-18 Units 0-18 Units subCUT TID WITH meals Sienna Chen MD 12 Units at 12/12/24 1735 insulin lispro (HumaLOG,ADMELOG) injection 0-9 Units 0-9 Units subCUT daily BEDTIME Otis Chen MD 9 Units at 12/12/24 2209 insulin lispro (HumaLOG,ADMELOG) injection 0-9 Units 0-9 Units subCUT daily at 0200 Otis Chen MD 6 Units at 12/12/24 0226 aspirin (CARTER CHEWABLE) chewable tablet 81 mg 81 mg Oral daily Efraín Dey DO 81 mg at 12/13/24 0842 atorvastatin (LIPITOR) tablet 40 mg 40 mg Oral daily BEDTIME Efraín Dey, DO 40 mg at 12/12/24 2157 furosemide (LASIX) tablet 80 mg 80 mg Oral BID Efraín Dey DO 80 mg at 12/13/24 0841 isosorbide mononitrate (IMDUR) SR 24 hour tablet 30 mg 30 mg Oral daily Efraín Dey DO 30 mgat 12/13/24 0841 metoprolol succinate (TOPROL XL) SR 24 hour tablet 25 mg 25 mg Oral daily Efraín Dey DO 25 mg at 12/13/24 0841 sacubitriL-valsartan (ENTRESTO) 24-26 mg tablet 1 Tablet 1 Tablet Oral BID Efraín Dey DO 1 Tablet at 12/13/24 0841 sertraline (ZOLOFT) tablet 50 mg 50 mg Oral daily Efraín Dey DO 50 mg at 12/13/24 0841 OLANZapine (ZyPREXA) tablet 10 mg 10 mg Oral daily BEDTIME Efraín Dey DO 10 mg at 12/12/242157 cefePIME (MAXIPIME) 2,000 mg in sodium chloride 0.9% 50 mL IVPB (MBP) 2,000 mg IV every 12 hours (2times daily) Otis Chen MD Stopped at 12/13/24 0918 ipratropium-albuteroL (DUONEB) 0.5 mg-3 mg(2.5 mg base)/3 mL inhalation solution 3 mL 3 mL Inhalation resp, every 6 hours PRN Efraín Dey DO dextrose 5 % - sodium chloride 0.9 % infusion IV see admin instructions Otis Chen MD sodium chloride 0.9 % infusion IV continuous Otis Chen MD Stopped at 12/11/24 0710 dextrose 5 % - sodium chloride 0.9 % infusion IV continuous Otis Chen MD Stopped at 12/11/24 1213 sodium chloride flush injection 10 mL 10 mL IV BID Otis Chen MD 10 mL at 12/13/24 0844 [DISCONTINUED] morphine (MS IR) tablet 15 mg 15 mg Oral every 6 hours PRN Otis Chen MD 15 mg at 12/12/24 1103 [DISCONTINUED] HYDROcodone-acetaminophen (NORCO) 7.5-325 mg per tablet 1 Tablet 1 Tablet Oral every6 hours PRN Otis Chen MD 1 Tablet at 12/12/24 0842 sodium chloride flush injection 10 mL 10 mL IV every 12 hours (2 times daily) Efraín Dey DO10 mL at 12/13/24 0844 sodium chloride flush injection 10 mL 10 mL IV see admin instructions Efraín Dey DO sodium chloride 0.9 % flush bag 25 mL 25 mL IV see admin instructions Efraín Dey DO dextrose 5 % in water 250 mL flush bag 25 mL 25 mL IV see admin instructions Efraín Dey DO acetaminophen (TYLENOL) tablet 650 mg 650 mg Oral every 6 hours PRN Efraín Dey DO 650 mg at12/10/24 1055 naloxone (NARCAN) 0.4 mg/mL injection 0.1 mg 0.1 mg IV see admin instructions Efraín Dey DO ondansetron (ZOFRAN) 4 mg/2 mL injection 4 mg 4 mg IV every 6 hours PRN Efraín Dey DO aluminum - magnesium - simethicone (MYLANTA) 200-200-20 mg/5 mL oral suspension 30 mL 30 mL Oral every 2 hours PRN Efraín Dey DO melatonin tablet 3 mg 3 mg Oral at bedtime PRN Efraín Dey DO 3 mg at 12/12/24 2328 guaiFENesin (ROBITUSSIN) 100 mg/5 mL oral solution 200 mg 200 mg Oral every 4 hours PRN Efraín Dey DO [COMPLETED] predniSONE (DELTASONE) tablet 40 mg 40 mg Oral daily WITH breakfast Efraín Dey DO 40 mg at 12/13/24 0841 dextrose 5 % - sodium chloride 0.9 % infusion IV see admin instructions Efraín Dey DO dextrose 50% (D50) syringe 12.5 Gram 12.5 Gram IV see admin instructions Efarín Dey DO dextrose 50% (D50) syringe 25 Gram 25 Gram IV see admin instructions Efraín Dey DO glucagon HCL 1 mg/mL injection 1 mg 1 mg IM see admin instructions Efraín Dey DO Current Facility-Administered Medications Medication warfarin (COUMADIN) tablet 10 mg meclizine (ANTIVERT) tablet 12.5 mg miconazole (KIN,MICOTIN,REMEDY AF) 2 % topical cream HYDROcodone-acetaminophen (NORCO) 5-325 mg per tablet 1 Tablet insulin glargine-yfgn injection 45 Units insulin lispro (HumaLOG,ADMELOG) injection 25 Units nitroglycerin (NITROSTAT) tablet 0.4 mg insulin lispro (HumaLOG,ADMELOG) injection 0-18 Units insulin lispro (HumaLOG,ADMELOG) injection 0-9 Units insulin lispro (HumaLOG,ADMELOG) injection 0-9 Units aspirin (CARTER CHEWABLE) chewable tablet 81 mg atorvastatin (LIPITOR) tablet 40 mg furosemide (LASIX) tablet 80 mg isosorbide mononitrate (IMDUR) SR 24 hour tablet 30 mg metoprolol succinate (TOPROL XL) SR 24 hour tablet 25 mg sacubitriL-valsartan (ENTRESTO) 24-26 mg tablet 1 Tablet sertraline (ZOLOFT) tablet 50 mg OLANZapine (ZyPREXA) tablet 10 mg cefePIME (MAXIPIME) 2,000 mg in sodium chloride 0.9% 50 mL IVPB (MBP) ipratropium-albuteroL (DUONEB) 0.5 mg-3 mg(2.5 mg base)/3 mL inhalation solution 3 mL dextrose 5 % - sodium chloride 0.9 % infusion sodium chloride 0.9 % infusion dextrose 5 % - sodium chloride 0.9 % infusion sodium chloride flush injection 10 mL sodium chloride flush injection 10 mL sodium chloride flush injection 10 mL sodium chloride 0.9 % flush bag 25 mL dextrose 5 % in water 250 mL flush bag 25 mL acetaminophen (TYLENOL) tablet 650 mg naloxone (NARCAN) 0.4 mg/mL injection 0.1 mg ondansetron (ZOFRAN) 4 mg/2 mL injection 4 mg aluminum - magnesium - simethicone (MYLANTA) 200-200-20 mg/5 mL oral suspension 30 mL melatonin tablet 3 mg guaiFENesin (ROBITUSSIN) 100 mg/5 mL oral solution 200 mg dextrose 5 % - sodium chloride 0.9 % infusion dextrose 50% (D50) syringe 12.5 Gram dextrose 50% (D50) syringe 25 Gram glucagon HCL 1 mg/mL injection 1 mg Consultants: IP CONSULT TO CASE MANAGEMENT IP CONSULT TO WOUND/SKIN CARE TEAM IP CONSULT TO PASTORAL SERVICES IP CONSULT TO IV TEAM IP CONSULT TO IV TEAM IP CONSULT TO IV TEAM IP CONSULT TO WOUND/SKIN CARE TEAM IP CONSULT TO IV TEAM OBJECTIVE: Temp (24hrs), Av.5 ??F (36.4 ??C), Min:97.1 ??F (36.2 ??C), Max:97.9 ??F (36.6 ??C) Intake/Output Summary (Last 24 hours) at 12/13/2024 1057 Last data filed at 12/13/2024 0848 Gross per 24 hour Intake 64.6 ml Output 2154 ml Net -2089.4 ml Last documented weight: Weight: 99.2 kg (218 lb 11.1 oz) (12/13/24 0304) LABORATORY: Recent Labs 12/10/24 1537 12/11/24 0544 12/12/24 0321 WBC 9.8 11.9* 12.7* HGB 10.4* 10.5* 9.2* HCT 32.6* 33.4* 29.9* PLT 169 178 201 Recent Labs 12/11/24 0544 12/12/24 0321 12/13/24 0622 NA 143 140 142 K 2.7* 3.7 3.9 CL 102 100 104 CO2 25 26 28 CA 8.7 8.7 9.4 BUN 20 19 17 CREAT 0.59 0.59 0.49* GLUCOSE 283* 372* 152* No results for input(s): TOTALPROTEIN , ALBUMIN , BILITOTAL , ALKPHOS , AST , ALT in the last 72 hours. Recent Labs 12/11/24 0544 12/12/24 0321 12/13/24 0121 INR 1.2 2.2* 2.4* PT 15.6* 25.8* 27.3* No results for input(s): BASETROP , 2HRTROP , DELTA , 6HRTROP in the last 72 hours. 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 : 1965 Requested By: Order Number: [id number] Jessica MD: Shayy Givens Measurements Intervals [place] Rate: 85 P: 0 OR: 120 QRS: 37 QRSD: 86 T: 18 QT: 374 QTc: 445 Interpretive Statements Ectopic atrial rhythm Inferior infarct, age undetermined Abnormal ECG Electronically Signed On 12-13-2024 6:49:12 CDT by Shayy Givens ASSESSMENT AND PLAN: Primary Discharge Diagnosis: COPD exacerbation ([facility]) Other Active medical issues also addressed during this admission: Active Hospital Problems Diagnosis Infiltrate of lung present on chest x-ray Essential hypertension Chronic combined systolic and diastolic congestive heart failure ([facility]) COPD exacerbation ([facility]) Morbid obesity due to excess calories ([facility]) CAD (coronary atherosclerotic disease) Insulin dependent type 2 diabetes mellitus ([facility]) Chronic respiratory failure with hypoxia, on home O2 therapy ([facility]) History of pulmonary embolism Type 2 diabetes mellitus without complication, without long-term current use of insulin ([facility]) Opioid dependence ([facility]) Bipolar affective disorder ([facility]) Hypertension Resolved Hospital Problems No resolved problems to display. 59-year-old female with past medical history of hypertension, hyperlipidemia, CAD status post PCI LAD RCA with recent angiogram February 2024 showing patent stents, COPD, chronic hypoxemic respiratory failure on home oxygen, history of PE, atrial flutter on chronic anticoagulation, obesity - Echocardiogram EF 40 to 45%. Prior studies include event monitor 12/07/2024 without significant tacky or bradycardia arrhythmias. Prior echocardiogram 11/02/2024 with EF around 45 to 50%. Nuclear PETscan 10/03/2024 with fixed defect however no significant reversible defects noted. Left heart cath done on 03/21/2024 with widely patent proximal LAD and mid to distal RCA stents, EF 30 to 35% with inferior wall hypokinesis. Based on risk-benefit discussion, all options of invasive versus noninvasive modalities in addition to medical therapy, plan to continue medical management at this time. - Chronic heart failure with reduced ejection fraction, clinically euvolemic. Continue HF GDMT. Heart failure education provided. -COPD with acute exacerbation, chronic hypoxic respiratory failure, ongoing workup by primary attending. -Paroxysmal atrial flutter on rate control therapies and chronic anticoagulation, therapeutic INR. Continue GDMT per the med rec. Cardiology be available on an as-needed basis. Please call with questions. Patient to have close outpatient follow-up with PCP clinic within 1 week of discharge, cardiology clinic within 6 weeks of discharge. Current Facility-Administered Medications Medication warfarin (COUMADIN) tablet 10 mg meclizine (ANTIVERT) tablet 12.5 mg miconazole (KIN,MICOTIN,REMEDY AF) 2 % topical cream HYDROcodone-acetaminophen (NORCO) 5-325 mg per tablet 1 Tablet insulin glargine-yfgn injection 45 Units insulin lispro (HumaLOG,ADMELOG) injection 25 Units nitroglycerin (NITROSTAT) tablet 0.4 mg insulin lispro (HumaLOG,ADMELOG) injection 0-18 Units insulin lispro (HumaLOG,ADMELOG) injection 0-9 Units insulin lispro (HumaLOG,ADMELOG) injection 0-9 Units aspirin (CARTER CHEWABLE) chewable tablet 81 mg atorvastatin (LIPITOR) tablet 40 mg furosemide (LASIX) tablet 80 mg isosorbide mononitrate (IMDUR) SR 24 hour tablet 30 mg metoprolol succinate (TOPROL XL) SR 24 hour tablet 25 mg sacubitriL-valsartan (ENTRESTO) 24-26 mg tablet 1 Tablet sertraline (ZOLOFT) tablet 50 mg OLANZapine (ZyPREXA) tablet 10 mg cefePIME (MAXIPIME) 2,000 mg in sodium chloride 0.9% 50 mL IVPB (MBP) ipratropium-albuteroL (DUONEB) 0.5 mg-3 mg(2.5 mg base)/3 mL inhalation solution 3 mL dextrose 5 % - sodium chloride 0.9 % infusion sodium chloride 0.9 % infusion dextrose 5 % - sodium chloride 0.9 % infusion sodium chloride flush injection 10 mL sodium chloride flush injection 10 mL sodium chloride flush injection 10 mL sodium chloride 0.9 % flush bag 25 mL dextrose 5 % in water 250 mL flush bag 25 mL acetaminophen (TYLENOL) tablet 650 mg naloxone (NARCAN) 0.4 mg/mL injection 0.1 mg ondansetron (ZOFRAN) 4 mg/2 mL injection 4 mg aluminum - magnesium - simethicone (MYLANTA) 200-200-20 mg/5 mL oral suspension 30 mL melatonin tablet 3 mg guaiFENesin (ROBITUSSIN) 100 mg/5 mL oral solution 200 mg dextrose 5 % - sodium chloride 0.9 % infusion dextrose 50% (D50) syringe 12.5 Gram dextrose 50% (D50) syringe 25 Gram glucagon HCL 1 mg/mL injection 1 mg I performed a history and physical examination [...] this document were createdthrough the use of Siinesupervisor brine software. Effort has been made to ensure accuracy of the heel slugger. Any obvious errors or omissions should be clarified with the author of the document. Raúl Rod MD * Bret Saleh RT - 12/12/2024 2:35 PM CDT Images from the original note were not included. Patient educated regarding Definity ultrasound contrast and verbalizes positive understanding. Definity administered per policy. Patient free from complaints throughout procedure. [facility] PHYSICIAN ORDERS # SECT [id number] ECHOCARDIOGRAPHY PROTOCOL FOR USE OF ECHOCARDIOGRAPHIC IMAGE ENHANCING AGENT (DEFINITY) This protocol is to be used during an Echocardiogram when a patient is technically difficult to image (as defined by [place] Society of Echocardi[employer] guidelines - the inability [...] Health Record ???per protocol?? (will require interpreting repairer welding systems and equipment to sign). Trained Echo Technologists may proceed with use of echocardiographic image enhancing agent. [facility] currently utilizes Definity (perflutren lipid microspheres). Administer [...] Prescribing Information package insert; Revised December 2010 [email or web address] .pdf ASE Consensus Statement - [place] [employer] Echocardi[employer] Consensus Statement on the Clinical Applications of Ultrasonic Contrast Agents in Echocardiography; KEIRA, January 2008 http://www.asecho.org/files/public/ContrastConsensusStatement.pdf [email or web address]/how-administration.html Approved by: Medication Management Committee Initiated: 07/23/2011 Revised: 07/30/2023 Expires: * Otis Chen MD - 12/12/2024 12:15 PM CDT Your life is our life's work [facility] Hospitalist/Hospital Medicine Progress Note LOS: 3 days Room/Bed: 4253/01 Patient name: Le Diaz Date of : 1965 HOSPITAL COURSE SUMMARY: Shortness of Breath Hx of COPD. Increasing Sob for last 2hrs. Labored breathing in triage. SPO2 90% on home 3L NC History of present illness: Patient was seen and examined at the bedside. Le Diaz is a 59 y.o. female with known morbid obesity, chronic combined CHF, COPD, diabetes mellitus, history of PE, hypertension who is being admitted for further evaluation of recurrent COPDexacerbation. Patient was discharged from our facility roughly 7 days ago for the same issue. Patient has had a numerous amount of admissions this year for recurrent issues with COPD. Patient states her shortness of breath began shortly before arrival. She has had increased cough as well. She feelsthat her belly is pushing up into her chest wall making it difficult to breathe. Typically patient comes in she always requires BiPAP temporarily. Otherwise patient denies any new complaints over her normal issues with COPD. Her clinical course is very similar to today where she typically requires BiPAP, is transition to nasal cannula and is typically discharged somewhere between 48 hours and 5 days later. CTA chest shows Patient's labs are at baseline with no acute abnormality. VBG is otherwise reassuring. Will check respiratory PCR and sputum cultures for completeness sake. Will continue COPD treatment with cefepime given amount of exacerbations, breathing treatments and steroids. 12/10 assigned, assumed care patient with acute hypoxic respiratory failure required BiPAP from 7 PMto 10 PM and has been subsequently placed on 4 L O2 per nasal cannula saturating 91-96% with no increased work of breathing. Chronically on warfarin she is for DVT PE in the last year and it is not therapeutic so we will start heparin drip and initiate increased warfarin as of 15 mg as patient beentaking 10 mg daily she reports compliance and her INR is 1.0 12/11 patient gluc is running 250s on insulin drip transition to glargine via D and every 4 hour high-dose sliding scale. Hypokalemia treated -12/12 warfarin now therapeutic, DC heparin On warfarin 10 mg daily INR 1+warf 15 mg->1.2+15 mg->2.2 +12.5 mg-> Addendum no patient was very somnolent check an ABG her CO2 is 58 slightly higher than she usually runs however her pH is compensated and staff now reported as alert and interactive and appropriate, continue to monitor Consultants: IP CONSULT TO CASE MANAGEMENT IP CONSULT TO WOUND/SKIN CARE TEAM IP CONSULT TO PASTORAL SERVICES IP CONSULT TO IV TEAM IP CONSULT TO IV TEAM IP CONSULT TO IV TEAM IP CONSULT TO WOUND/SKIN CARE TEAM SUBJECTIVE: Patient offers no new concerns ROS: Negative except as above 12/12 History obtained from the patient- OBJECTIVE: Temp (24hrs), Av.7 ??F (36.5 ??C), Min:97.2 ??F (36.2 ??C), Max:98 ??F (36.7 ??C) BP 125/81 (BP Location: Left arm, Patient Position (BP): Standing) Pulse 92 Temp 97.8 ??F (36.6??C) (Temporal) Resp 26 Ht 5' 4 (1.626 m) Wt 102.1 kg (225 lb 1.4 oz) SpO2 97% BMI 38.64kg/m?? Intake/Output Summary (Last 24 hours) at 12/12/2024 1215 Last data filed at 12/12/2024 1100 Gross per 24 hour Intake 793.57 ml Output 3952 ml Net -3158.43 ml Last documented weight: Weight: 102.1 kg (225 lb 1.4 oz) (12/12/24 0245) EXAM:re Examined at bedside 12/12 GENERAL APPEARANCE: Very sleepy and slow to awaken despite multiple attempts to awaken her, brieflyalerts oriented, affect appropriate,following commands HEENT: PERRL, conjunctiva/ lids clear, neck supple, NEURO:CN2-12 wnl, PERRL moving all extremities spontaneously and symmetrically, tardive dyskinetic head movements CARDIOVASCULAR: regular rate and rhythm, S1, S2 normal, no murmur, click, rub or gallop, LUNGS: clear to auscultation bilaterally anteriorly and posteriorly.No wheezing noted. No increasedwork of breathing noted at rest CHEST WALL EXAM: no crepitance, diffusely tender to moderate palpation BACK: symmetric excursion, without spinous or cva tenderness bilat ABDOMEN: benign, normoactive bowel sounds, no organomegaly or masses, no rebound , no guarding, Non distended, soft, nontender to mod diffuse palpation EXTREMITIES: extremities with 2+ bilateral pedal edema, no cyanosis, warm and well perfused,No calfor thigh erythema,tenderness or edema, SKIN: intact, no jaundice, IV sites clean, dry LABORATORY: Recent Labs 12/09/24180812/10/240 12/10/24 1537 12/11/24 0544 12/12/24 0321 WBC 7.1 7.1 9.8 11.9* 12.7* HGB 11.6* 11.0* 10.4* 10.5* 9.2* HCT 38.2 35.7* 32.6* 33.4* 29.9* PLT 178 170 169 178 201 Recent Labs 12/09/24 18012/10/24 0410 12/11/24 0544 12/12/24 0321 NA 137 137 143 140 K 4.0 3.9 2.7* 3.7 CL 100 100 102 100 CO2 21* 23 25 26 CA 9.5 9.2 8.7 8.7 BUN 12 13 20 19 CREAT 0.53 0.56 0.59 0.59 GLUCOSE 296* 482* 283* 372* Recent Labs 12/09/24180812/10/24 0410 TOTALPROTEIN 6.9 6.7 ALBUMIN 3.5 3.5 BILITOTAL 0.2 <0.2 ALKPHOS 144* 146* AST 21 19 ALT 25 24 Recent Labs 12/09/24201112/10/24 0411 12/11/24 0544 12/12/24 0321 INR 1.1 1.1 1.2 2.2* PT 14.4 14.6 15.6* 25.8* Recent Labs 12/09/24180812/09/24 2254 12/10/24 0410 BASETROP 20* -- -- 2HRTROP -- 23* -- DELTA -- 3 -6 6HRTROP -- -- 14* Diagnostic testing reviewed by me: Medications were reviewed by me. Primary discharge diagnosis: COPD exacerbation (CMS/HCC) Other active medical issues also addressed during this admission: Active Hospital Problems Diagnosis COPD exacerbation (CMS/HCC) Essential hypertension Morbid obesity due to excess calories (CMS/HCC) CAD (coronary atherosclerotic disease) 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) 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) Chronic respiratory failure with hypoxia, on home O2 therapy ([facility]/HCC) History of pulmonary embolism Type 2 diabetes mellitus without complication, without long-term current use of insulin (CMS/HCC) Opioid dependence ([facility]/HCC) Bipolar affective disorder ([facility]/HCC) Hypertension Resolved Hospital Problems No resolved problems to display. ASSESSMENT AND PLAN: Recent Labs 12/12/24 0225 12/12/24 0408 12/12/24 0716 12/12/24 1135 GLUCPOC 333* 373* 278* 310* COPD exacerbation (CMS/HCC) acute on chronic hypoxic, hypercarbic respiratory failure - CTA chest xray personally reviewd and showed ground glass opacities; no evidence of lobar pneumonia, no PE - Oxygen delivery via nasal cannula, BiPAP at night as needed or as BROTH MIXER - Titrate oxygen for SpO2 90-93% - RT assess and treat -12/09 blood cultures PENDING - Check respiratory PCR RT to induce PENDING - Check sputum cultures RT Induce PENDING - PRN/scheduled breathing treatments per RT protocol - Steroids IV on 06/09 then changed to p.o. taper down as tolerated - Antibiotics with cefepime given amount of exacerbations, currently on cefepime 7-day course -RT to induce sputum for pneumonia PCR and sputum culture PENDING -VBG 7.3 bicarb 27 Chest pain with elevated troponins/chest wall pain -Patient complains of diffuse pain over her chest -Stat EKG without acute ischemic changes -Troponin -Cardiology consulted and findings atypical chest pain no evidence of ACS continue GDMT and monitorthat pain response to her treatment for COPD exacerbation -Analgesics Syncope - patient reported syncope initiating a fall prior to admission - orthostatics unequivocally negative -Check CT of the head - Check echo - Reported slight dizziness trial meclizine 12.5 mg 3 times daily Bipolar affective disorder ([facility]) Continue BROTH MIXER meds Hypertension - Resume BROTH MIXER antihypertensive medications as indicated - Monitor adjust medications as needed -Currently 117-1 30s/60s-80s Type 2 diabetes mellitus without complication, without long-term current use of insulin ([facility]) - POC glucose before meals and at bedtime - Low dose correctional Sliding scale insulin - Will titrate insulin regimen based on response - Hypoglycemia precuations - Hold oral hypoglycemics while inpatient -Initially 486 then 524 this morning of 12/10 -12/10 initiated insulin drip and glargine as per pharmacy hyperglycemia protocol -12/11 transition to glargine 25 units twice a day and high sliding scale lispro every 4 hours -12/12 increased glargine to 45 units daily stepwise, added 15 units lispro q. meal time 3 times daily History of pulmonary embolism - 12/12 INR now therapeutic at 2.2 - Monitor daily INR - 12/12 DC heparin drip -On warfarin 10 mg daily INR 1+warf 15 mg->1.2+15 mg->2.2+12.5 mg-> Chronic respiratory failure with hypoxia, on home O2 therapy ([facility]) Chronic combined systolic and diastolic congestive heart failure ([facility]) - Currently no strong evidence of exacerbation of CHF with BNP of 201 - Continue home Lasix - Monitor I's and O's net -2.9 L 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) - POC glucose before meals and at bedtime - Low dose correctional Sliding scale insulin - Will titrate insulin regimen based on response - Hypoglycemia precuations - Hold oral hypoglycemics while inpatient -12/11 glucose is still 300, increase glargine further to 45 twice a day give 5 units now as well asadditional 10 of lispro for Glucoscan at 310 and initiated lispro 15 units 3 times daily with meals CAD (coronary atherosclerotic disease) - Currently no evidence of ACS - Telemetry Morbid obesity due to excess calories (CMS/HCC) - Complicates all aspects of care CODE STATUS: Full DVT prophylaxis: Warfarin Diet: Diabetic Outpatient follow up: PCP, pulmonology Anticipated Disposition Location: Home Timeframe: 2 to 4 days Criteria: Clinical stability Education/DME/Equipment Needs: TBD Patient's understanding of illness: Moderate Primary family contact: Mother Evelyn Encinas [phone] Code status: Full Code MDM high level 3 Care included, Preparing to see the patient, Obtaining and/or reviewing separately obtained history, Performing a medically appropriate examination and/or evaluation, Counseling and educating the patient/family/caregiver, Ordering medications, tests or procedures, Documenting clinical information in the medical record, Referring and communication with other health care asst (not separately reported), and Independently interpreting results and communicating results to the patient/family/caregiver (not separately reported). POCV with RN Roselyn Chen MD 12/12/2024, 12:15 PM * Heydi Hart (Student), Student Therapist - 12/12/2024 11:33 AM CDT PT attempted to see patient, but patient refused treatment due to 9/10 pain in her BLE and not feeling well. PT will continue to attempt to see patient. Treatment Provided by Heydi Hart, Student therapist Distant Supervision Provided by Roseanna Rodríguez, Physical Therapist Cosigned by Otis Chen MD at 12/13/2024 3:40 PM CDT * Raúl Rod MD - 12/12/2024 8:02 AM CDT Images from the original note were not included. Cardiology Progress note: LOS: LOS: 3 days Patient name: Le Diaz. [id number] Date of : 1965 Subjective: No acute cardiac issues overnight per the nursing staff. Physical Exam: BP 125/81 (BP Location: Left arm, Patient Position (BP): Standing) Pulse 92 Temp 97.8 ??F (36.6??C) (Temporal) Resp 26 Ht 5' 4 (1.626 m) Wt 102.1 kg (225 lb 1.4 oz) SpO2 97% BMI 38.64kg/m?? Gen: NAD; Alert and oriented, no acute distress HEENT: Normocephalic atraumatic CV: RRR, 1/6 systolic murmur present in precordium, audible s1/s2 Chest: Decreased breath sounds bilaterally with history of COPD Ext: Trace edema Past Medical History: Past [...] smear Hyperlipidemia Ischemic cardiomyopathy Lower extremity edema CT (myocardial infarction) (CMS/HCC) 2015 Neuropathy NSTEMI (non-ST [...] ESOPHAGOGASTRODUODENOSCOPY performed by Mikey Moon MD at [facility] OR HX MASTECTOMY Right no lymph node removal HX PTCA stents (x3 in 2015, x2 in 2018) HX SPINAL SURGERY 2004 C4-5 fusion at [place], [place] HX SPLENECTOMY HX SURGICAL OTHER 1984 vaginal reconstruction HX TONSILLECTOMY HX 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 INSERT MIDLINE IV 10/31/2024 INSERT MIDLINE IV 12/10/2024 OR CATH PLMT L HRT & ARTS W/NJX & ANGIO IMG S&I N/A 03/21/2024 Left heart cath performed by Kyler Helm MD at [facility] INVASIVE CARDIOLOGY OR CATH PLMT L HRT & ARTS W/NJX & ANGIO IMG S&I N/A 03/21/2024 Left Ventriculogram performed by Kyler Helm MD at [facility] INVASIVE CARDIOLOGY OR COLONOSCOPY FLX DX W/COLLJ SPEC WHEN PFRMD 01/23/2011 COLONOSCOPY performed by MACK BISWAS at [facility] ENDOSCOPY OR COLONOSCOPY FLX DX W/COLLJ SPEC WHEN PFRMD 09/19/2010 COLONOSCOPY performed by MACK BISWAS at [facility] ENDOSCOPY OR CORRECTION HAMMERTOE Left 07/20/2024 TOE(S) ARTHROPLASTY performed by Tereso Gil, DPM at [facility] MAIN OR OR EXPL PENETRATING WOUND SPX ABDOMEN/FLANK/BACK N/A 05/30/2023 LAPAROTOMY EXPLORATORY performed by Jose Cruz Montero DO at [facility] MAIN OR OR INJ SUBSTITUTE PARS PLANA/LIMBL W/WO ASPIR SPX Right 03/30/2024 EYE AIR FLUID GAS EXCHANGE performed by Eduardo Craven MD at [facility] SURGERY [facility] OR RPR RPTD SPLEEN SPLENORRHAPHY W/WO PRTL SPLENECT N/A 05/30/2023 SPLENECTOMY performed by Jose Cruz Montero DO at [facility] MAIN OR OR VITRECTOMY [facility] PARS PLNA FOCAL ENDOLASER PC Right 03/30/2024 PARS PLANA VITRECTOMY WITH LASER performed by Eduardo Craven MD at [facility] SURGERY [facility] Allergies: Allergies Allergen Reactions Ketorolac Tromethamine Hives Prochlorperazine Hives and Seizure Propoxyphene Nausea and Vomiting Tramadol Hives Codeine Itching Propoxyphene N-Acetaminophen Nausea and Vomiting Current Medications: Current Facility-Administered Medications Medication Dose Route Frequency Provider Last Rate Last Admin [COMPLETED] insulin lispro (HumaLOG,ADMELOG) injection 5 Units 5 Units subCUT ONE time only Tiffanie Dawn, [employer] 5 Units at 12/12/24 0410 warfarin (COUMADIN) tablet 12.5 mg 12.5 mg Oral daily LATE Otis Chen MD meclizine (ANTIVERT) tablet 12.5 mg 12.5 mg Oral TID Otis Chen MD miconazole (KIN,MICOTIN,REMEDY AF) 2 % topical cream Topical BID Otis Chen MD [COMPLETED] insulin lispro (HumaLOG,ADMELOG) injection 10 Units 10 Units subCUT ONE time only Otis Chen MD 10 Units at 12/12/24 1153 HYDROcodone-acetaminophen (NORCO) 5-325 mg per tablet 1 Tablet 1 Tablet Oral every 8 hours PRN Otis Chen MD insulin glargine-yfgn injection 45 Units 45 Units subCUT BID Otis Chen MD insulin glargine-yfgn injection 5 Units 5 Units subCUT ONE time only Otis Chen MD insulin lispro (HumaLOG,ADMELOG) injection 15 Units 15 Units subCUT TID WITH meals Otis Chen MD [DISCONTINUED] insulin lispro (HumaLOG,ADMELOG) injection 4 Units 4 Units subCUT ONE time only Tiffanie Dawn, [place] [DISCONTINUED] insulin glargine-yfgn injection 38 Units 38 Units subCUT BID Otis Chen MD 38 Units at 12/12/24 0851 [COMPLETED] potassium CHLORIDE 20 mEq/100 mL IVPB 20 mEq 20 mEq IV every 4 hours Otis Chen MDStopped at 12/11/24 1415 insulin lispro (HumaLOG,ADMELOG) injection 0-18 Units 0-18 Units subCUT TID WITH meals Sienna Chen MD 12 Units at 12/12/24 1154 insulin lispro (HumaLOG,ADMELOG) injection 0-9 Units 0-9 Units subCUT daily BEDTIME Otis Chen MD 9 Units at 12/11/24 210 insulin lispro (HumaLOG,ADMELOG) injection 0-9 Units 0-9 Units subCUT daily at 0200 Otis Chen MD 6 Units at 12/12/24 0226 [DISCONTINUED] insulin glargine-yfgn injection 25 Units 25 Units subCUT BID Otis Chen MD 25 Units at 12/11/24 1209 [DISCONTINUED] insulin glargine-yfgn injection 32 Units 32 Units subCUT BID Otis Chen MD 32 Units at 12/11/24 2108 aspirin (CARTER CHEWABLE) chewable tablet 81 mg 81 mg Oral daily Efraín Dey, DO 81 mg at 12/12/24 0842 atorvastatin (LIPITOR) tablet 40 mg 40 mg Oral daily BEDTIME Efraín Dey, DO 40 mg at 12/11/242106 furosemide (LASIX) tablet 80 mg 80 mg Oral BID Efraín Dey, DO 80 mg at 12/12/24 0842 isosorbide mononitrate (IMDUR) SR 24 hour tablet 30 mg 30 mg Oral daily Efraín Dey A, DO 30 mgat 12/12/24 0842 metoprolol succinate (TOPROL XL) SR 24 hour tablet 25 mg 25 mg Oral daily Efraín Dey A, DO 25 mg at 12/12/24 0842 sacubitriL-valsartan (ENTRESTO) 24-26 mg tablet 1 Tablet 1 Tablet Oral BID Efraín Dey DO 1 Tablet at 12/12/24 0842 sertraline (ZOLOFT) tablet 50 mg 50 mg Oral daily Efraín Dey DO 50 mg at 12/12/24 0842 OLANZapine (ZyPREXA) tablet 10 mg 10 mg Oral daily BEDTIME Efraín Dey DO 10 mg at 12/11/24 2104 cefePIME (MAXIPIME) 2,000 mg in sodium chloride 0.9% 50 mL IVPB (MBP) 2,000 mg IV every 12 hours (2times daily) Otis Chen MD Stopped at 12/12/24 0919 ipratropium-albuteroL (DUONEB) 0.5 mg-3 mg(2.5 mg base)/3 mL inhalation solution 3 mL 3 mL Inhalation resp, every 6 hours PRN Efraín Dey DO dextrose 5 % - sodium chloride 0.9 % infusion IV see admin instructions Otis Chen MD sodium chloride 0.9 % infusion IV continuous Otis Chen MD Stopped at 12/11/24 0710 dextrose 5 % - sodium chloride 0.9 % infusion IV continuous Otis Chen MD Stopped at 12/11/24 1213 sodium chloride flush injection 10 mL 10 mL IV BID Otis Chen MD 10 mL at 12/12/24 0853 [DISCONTINUED] morphine (MS IR) tablet 15 mg 15 mg Oral every 6 hours PRN Otis Chen MD 15 mg at 12/12/24 1103 [DISCONTINUED] HYDROcodone-acetaminophen (NORCO) 7.5-325 mg per tablet 1 Tablet 1 Tablet Oral every6 hours PRN Otis Chen MD 1 Tablet at 12/12/24 0842 [DISCONTINUED] heparin in 0.45% NaCl 25,000 unit/250 mL infusion 17 Units/kg/hr (Adjusted) IV titrate Otis Chen MD Stopped at 12/12/24 0810 [DISCONTINUED] warfarin (COUMADIN) tablet 15 mg 15 mg Oral daily LATE Otis Chen MD 15 mg at 12/11/24 1623 sodium chloride flush injection 10 mL 10 mL IV every 12 hours (2 times daily) Efraín Dey DO10 mL at 12/12/24 0853 sodium chloride flush injection 10 mL 10 mL IV see admin instructions Efraín Dey DO sodium chloride 0.9 % flush bag 25 mL 25 mL IV see admin instructions Efraín Dey DO dextrose 5 % in water 250 mL flush bag 25 mL 25 mL IV see admin instructions Efraín Dey DO acetaminophen (TYLENOL) tablet 650 mg 650 mg Oral every 6 hours PRN Efraín Dey DO 650 mg at 12/10/24 1055 naloxone (NARCAN) 0.4 mg/mL injection 0.1 mg 0.1 mg IV see admin instructions Efraín Dey DO ondansetron (ZOFRAN) 4 mg/2 mL injection 4 mg 4 mg IV every 6 hours PRN Efraín Dey DO aluminum - magnesium - simethicone (MYLANTA) 200-200-20 mg/5 mL oral suspension 30 mL 30 mL Oral every 2 hours PRN Efraín Dey DO melatonin tablet 3 mg 3 mg Oral at bedtime PRN Efraín Dey DO guaiFENesin (ROBITUSSIN) 100 mg/5 mL oral solution 200 mg 200 mg Oral every 4 hours PRN Efraín Dey DO predniSONE (DELTASONE) tablet 40 mg 40 mg Oral daily WITH breakfast Efraín Dey DO 40 mg at 12/12/24 0842 dextrose 5 % - sodium chloride 0.9 % infusion IV see admin instructions Efraín Dey DO dextrose 50% (D50) syringe 12.5 Gram 12.5 Gram IV see admin instructions Efraín Dey DO dextrose 50% (D50) syringe 25 Gram 25 Gram IV see admin instructions Efraín Dey DO glucagon HCL 1 mg/mL injection 1 mg 1 mg IM see admin instructions Efraín Dey DO Current Facility-Administered Medications Medication warfarin (COUMADIN) tablet 12.5 mg meclizine (ANTIVERT) tablet 12.5 mg miconazole (KIN,MICOTIN,REMEDY AF) 2 % topical cream HYDROcodone-acetaminophen (NORCO) 5-325 mg per tablet 1 Tablet insulin glargine-yfgn injection 45 Units insulin glargine-yfgn injection 5 Units insulin lispro (HumaLOG,ADMELOG) injection 15 Units insulin lispro (HumaLOG,ADMELOG) injection 0-18 Units insulin lispro (HumaLOG,ADMELOG) injection 0-9 Units insulin lispro (HumaLOG,ADMELOG) injection 0-9 Units aspirin (CARTER CHEWABLE) chewable tablet 81 mg atorvastatin (LIPITOR) tablet 40 mg furosemide (LASIX) tablet 80 mg isosorbide mononitrate (IMDUR) SR 24 hour tablet 30 mg metoprolol succinate (TOPROL XL) SR 24 hour tablet 25 mg sacubitriL-valsartan (ENTRESTO) 24-26 mg tablet 1 Tablet sertraline (ZOLOFT) tablet 50 mg OLANZapine (ZyPREXA) tablet 10 mg cefePIME (MAXIPIME) 2,000 mg in sodium chloride 0.9% 50 mL IVPB (MBP) ipratropium-albuteroL (DUONEB) 0.5 mg-3 mg(2.5 mg base)/3 mL inhalation solution 3 mL dextrose 5 % - sodium chloride 0.9 % infusion sodium chloride 0.9 % infusion dextrose 5 % - sodium chloride 0.9 % infusion sodium chloride flush injection 10 mL sodium chloride flush injection 10 mL sodium chloride flush injection 10 mL sodium chloride 0.9 % flush bag 25 mL dextrose 5 % in water 250 mL flush bag 25 mL acetaminophen (TYLENOL) tablet 650 mg naloxone (NARCAN) 0.4 mg/mL injection 0.1 mg ondansetron (ZOFRAN) 4 mg/2 mL injection 4 mg aluminum - magnesium - simethicone (MYLANTA) 200-200-20 mg/5 mL oral suspension 30 mL melatonin tablet 3 mg guaiFENesin (ROBITUSSIN) 100 mg/5 mL oral solution 200 mg predniSONE (DELTASONE) tablet 40 mg dextrose 5 % - sodium chloride 0.9 % infusion dextrose 50% (D50) syringe 12.5 Gram dextrose 50% (D50) syringe 25 Gram glucagon HCL 1 mg/mL injection 1 mg Consultants: IP CONSULT TO CASE MANAGEMENT IP CONSULT TO WOUND/SKIN CARE TEAM IP CONSULT TO PASTORAL SERVICES IP CONSULT TO IV TEAM IP CONSULT TO IV TEAM IP CONSULT TO IV TEAM IP CONSULT TO WOUND/SKIN CARE TEAM OBJECTIVE: Temp (24hrs), Av.7 ??F (36.5 ??C), Min:97.2 ??F (36.2 ??C), Max:98 ??F (36.7 ??C) Intake/Output Summary (Last 24 hours) at 12/12/2024 1327 Last data filed at 12/12/2024 1100 Gross per 24 hour Intake 793.57 ml Output 3952 ml Net -3158.43 ml Last documented weight: Weight: 102.1 kg (225 lb 1.4 oz) (12/12/24 0245) LABORATORY: Recent Labs 12/09/24180812/10/2440912/10/24 1537 12/11/24 0544 12/12/24 0321 WBC 7.1 7.1 9.8 11.9* 12.7* HGB 11.6* 11.0* 10.4* 10.5* 9.2* HCT 38.2 35.7* 32.6* 33.4* 29.9* PLT 178 170 169 178 201 Recent Labs 12/09/24180812/10/2440912/11/24 0544 12/12/24 0321 NA 137 137 143 140 K 4.0 3.9 2.7* 3.7 CL 100 100 102 100 CO2 21* 23 25 26 CA 9.5 9.2 8.7 8.7 BUN 12 13 20 19 CREAT 0.53 0.56 0.59 0.59 GLUCOSE 296* 482* 283* 372* Recent Labs 12/09/24180812/10/24 0410 TOTALPROTEIN 6.9 6.7 ALBUMIN 3.5 3.5 BILITOTAL 0.2 <0.2 ALKPHOS 144* 146* AST 21 19 ALT 25 24 Recent Labs 12/09/24201112/10/24 0411 12/11/24 0544 12/12/24 0321 INR 1.1 1.1 1.2 2.2* PT 14.4 14.6 15.6* 25.8* Recent Labs 12/09/24180812/09/24 2254 12/10/24 0410 BASETROP 20* -- -- 2HRTROP -- 23* -- DELTA -- 3 -6 6HRTROP -- -- 14* Chart reviewed Other Results: Results for orders placed or performed during the hospital encounter of 12/09/24 EKG 12-LEAD Narrative 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[id number] : 1965 Requested By: Order Number: [id number] [place] MD: Echo Tapia Measurements Intervals [place] Rate: 107 P: 0 OR: 156 QRS: 44 QRSD: 84 T: 19 QT: 358 QTc: 477 Interpretive Statements Sinus tachycardia, possible ectopic rhythm Possible Inferior infarct, age undetermined Abnormal ECG Electronically Signed On 12-10-2024 9:52:23 CDT by Echo Tapia ASSESSMENT AND PLAN: Primary Discharge Diagnosis: COPD exacerbation (CMS/HCC) Other Active medical issues also addressed during this admission: Active Hospital Problems Diagnosis Essential hypertension 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) COPD exacerbation ([facility]/HCC) Morbid obesity due to excess calories ([facility]) CAD (coronary atherosclerotic disease) Insulin dependent type 2 diabetes mellitus ([facility]) Chronic respiratory failure with hypoxia, on home O2 therapy ([facility]) History of pulmonary embolism Type 2 diabetes mellitus without complication, without long-term current use of insulin ([facility]) Opioid dependence ([facility]) Bipolar affective disorder ([facility]) Hypertension Resolved Hospital Problems No resolved problems to display. 59-year-old female with past medical history of hypertension, hyperlipidemia, CAD status post PCI LAD RCA with recent angiogram February 2024 showing patent stents, COPD, chronic hypoxemic respiratory failure on home oxygen, history of PE, atrial flutter on chronic anticoagulation, obesity - Await results of echocardiogram done earlier today. Prior studies include event monitor 12/07/2024without significant tacky or bradycardia arrhythmias. Prior echocardiogram 11/02/2024 with EF [id number] to 50%. Nuclear PET scan 10/03/2024 with fixed defect however no significant reversible defects noted. Left heart cath done on 03/21/2024 with widely patent proximal LAD and mid to distal RCA stents, EF 30 to 35% with inferior wall hypokinesis. - Chronic heart failure with reduced ejection fraction, EF improving, await repeat echocardiogram, clinically euvolemic, continue GDMT. -COPD with acute exacerbation, chronic hypoxic respiratory failure, ongoing workup by primary attending. -Paroxysmal atrial flutter on rate control therapies and chronic anticoagulation, therapeutic INR. Continue GDMT per the [facility] rec. Cardiology will continue to follow closely. Current Facility-Administered Medications Medication warfarin (COUMADIN) tablet 12.5 mg meclizine (ANTIVERT) tablet 12.5 mg miconazole (KIN,MICOTIN,REMEDY AF) 2 % topical cream HYDROcodone-acetaminophen (NORCO) 5-325 mg per tablet 1 Tablet insulin glargine-yfgn injection 45 Units insulin glargine-yfgn injection 5 Units insulin lispro (HumaLOG,ADMELOG) injection 15 Units insulin lispro (HumaLOG,ADMELOG) injection 0-18 Units insulin lispro (HumaLOG,ADMELOG) injection 0-9 Units insulin lispro (HumaLOG,ADMELOG) injection 0-9 Units aspirin (CARTER CHEWABLE) chewable tablet 81 mg atorvastatin (LIPITOR) tablet 40 mg furosemide (LASIX) tablet 80 mg isosorbide mononitrate (IMDUR) SR 24 hour tablet 30 mg metoprolol succinate (TOPROL XL) SR 24 hour tablet 25 mg sacubitriL-valsartan (ENTRESTO) 24-26 mg tablet 1 Tablet sertraline (ZOLOFT) tablet 50 mg OLANZapine (ZyPREXA) tablet 10 mg cefePIME (MAXIPIME) 2,000 mg in sodium chloride 0.9% 50 mL IVPB (MBP) ipratropium-albuteroL (DUONEB) 0.5 mg-3 mg(2.5 mg base)/3 mL inhalation solution 3 mL dextrose 5 % - sodium chloride 0.9 % infusion sodium chloride 0.9 % infusion dextrose 5 % - sodium chloride 0.9 % infusion sodium chloride flush injection 10 mL sodium chloride flush injection 10 mL sodium chloride flush injection 10 mL sodium chloride 0.9 % flush bag 25 mL dextrose 5 % in water 250 mL flush bag 25 mL acetaminophen (TYLENOL) tablet 650 mg naloxone (NARCAN) 0.4 mg/mL injection 0.1 mg ondansetron (ZOFRAN) 4 mg/2 mL injection 4 mg aluminum - magnesium - simethicone (MYLANTA) 200-200-20 mg/5 mL oral suspension 30 mL melatonin tablet 3 mg guaiFENesin (ROBITUSSIN) 100 mg/5 mL oral solution 200 mg predniSONE (DELTASONE) tablet 40 mg dextrose 5 % - sodium chloride 0.9 % infusion dextrose 50% (D50) syringe 12.5 Gram dextrose 50% (D50) syringe 25 Gram glucagon HCL 1 mg/mL injection 1 mg I performed a history and physical examination [...] this document were createdthrough the use of Siinesupervisor brine software. Effort has been made to ensure accuracy of the heel slugger. Any obvious errors or omissions should be clarified with the author of the document. Raúl Rod MD * Tiffanie Dawn, [facility] - 12/12/2024 3:[address] [facility] Cross Cover Call Two patient identifier: Le Diaz 1965 Called for: hyperglycemia Last Recorded Vitals: BP 104/54 (BP Location: Left arm, Patient Position (BP): Supine) Pulse 75 Temp 97.2 ??F (36.2 ??C) (Temporal) Resp 17 Ht 5' 4 (1.626 m) Wt 102.5 kg (225 lb 15.5 oz) SpO2 93% BMI 38.79 kg/m?? Small amount stool (12/10/24 1135) Pain Rating: Rest: 9 (12/11/24 1746) This is a 59 year old female here with COPD exacerbation. She has a history of known morbid obesity, chronic combined CHF, COPD, DM, hx of PE, and hypertension. RN called for blood sugar of 438 with recheck of 333. She is taking 32 units of Lantus bid and Humalog sliding scale coverage with meals plus at bedtime. Documentation/Intervention/Outcome: Chart reviewed. 5 units of Humalog Recheck per protocol Please call back any time if I can be of more assistance. RALEIGH Malloy Cosigned by Huy Ornelas MD at 12/12/2024 3:25 AM CDT * Antolin Rosario - 12/11/2024 4:02 PM CDT Patient referral today for assistance with Advance Directive. Thank you for the opportunity to care for this patient. Patient was previously given forms A and B of Advance Directive. Forms were previously discussed and questions answered. Patient made a decision to complete forms. Forms were filled out, signed, notarized, faxed, filed and original returned to patient. Follow up with continued spiritual care PRN. Rev. Dr. Antolin Rosario, [facility] Spiritual Care Team [address] [place] [id number] Office: [phone] * Otis Chen MD - 12/11/2024 2:04 PM CDT Your life is our life's work [facility] Hospitalist/Hospital Medicine Progress Note LOS: 2 days Room/Bed: 4253/01 Patient name: Le Diaz Date of : 1965 HOSPITAL COURSE SUMMARY: Shortness of Breath Hx of COPD. Increasing Sob for last 2hrs. Labored breathing in triage. SPO2 90% on home 3L [place] History of present illness: Patient was seen and examined at the bedside. Le Diaz is a 59 y.o. female with known morbid obesity, chronic combined CHF, COPD, diabetes mellitus, history of PE, hypertension who is being admitted for further evaluation of recurrent COPDexacerbation. Patient was discharged from our facility roughly 7 days ago for the same issue. Patient has had a numerous amount of admissions this year for recurrent issues with COPD. Patient states her shortness of breath began shortly before arrival. She has had increased cough as well. She feelsthat her belly is pushing up into her chest wall making it difficult to breathe. Typically patient comes in she always requires BiPAP temporarily. Otherwise patient denies any new complaints over her normal issues with COPD. Her clinical course is very similar to today where she typically requires BiPAP, is transition to nasal cannula and is typically discharged somewhere between 48 hours and 5 days later. CTA chest shows Patient's labs are at baseline with no acute abnormality. VBG is otherwise reassuring. Will check respiratory PCR and sputum cultures for completeness sake. Will continue COPD treatment with cefepime given amount of exacerbations, breathing treatments and steroids. 12/10 assigned, assumed care patient with acute hypoxic respiratory failure required BiPAP from 7 PMto 10 PM and has been subsequently placed on 4 L O2 per nasal cannula saturating 91-96% with no increased work of breathing. Chronically on warfarin she is for DVT PE in the last year and it is not therapeutic so we will start heparin drip and initiate increased warfarin as of 15 mg as patient beentaking 10 mg daily she reports compliance and her INR is 1.0 12/11 patient Kos is running 250s on insulin drip transition to glargine via D and every 4 hour high-dose sliding scale. Hypokalemia treated On warfarin 10 mg daily INR 1+warf 15 mg->1.2+15 mg-> Consultants: IP CONSULT TO CASE MANAGEMENT IP CONSULT TO WOUND/SKIN CARE TEAM IP CONSULT TO PASTORAL SERVICES IP CONSULT TO IV TEAM IP CONSULT TO IV TEAM SUBJECTIVE: I am doing better today ROS: No except as above 12/12 History obtained from the patient- OBJECTIVE: Temp (24hrs), Av.3 ??F (36.3 ??C), Min:97 ??F (36.1 ??C), Max:98.1 ??F (36.7 ??C) BP 137/84 Pulse 72 Temp 97.2 ??F (36.2 ??C) (Temporal) Resp 16 Ht 5' 4 (1.626 m) Wt 102.5 kg (225 lb 15.5 oz) SpO2 95% BMI 38.79 kg/m?? Intake/Output Summary (Last 24 hours) at 12/11/2024 1404 Last data filed at 12/11/2024 0617 Gross per 24 hour Intake 1843.17 ml Output 2775 ml Net -931.83 ml Last documented weight: Weight: 102.5 kg (225 lb 15.5 oz) (12/10/24 0453) EXAM: RE Examined at bedside 12/11 GENERAL APPEARANCE: alert, oriented, affect appropriate,following commands HEENT: PERRL, conjunctiva/ lids clear, neck supple, NEURO:CN2-12 wnl, PERRL moving all extremities spontaneously and symmetrically, tardive dyskinetic head movements CARDIOVASCULAR: regular rate and rhythm, S1, S2 normal, no murmur, click, rub or gallop, LUNGS: clear to auscultation bilaterally anteriorly and posteriorly.No wheezing noted. No increasedwork of breathing noted at rest CHEST WALL EXAM: no crepitance, diffusely tender to moderate palpation BACK: symmetric excursion, without spinous or cva tenderness bilat ABDOMEN: benign, normoactive bowel sounds, no organomegaly or masses, no rebound , no guarding, Non distended, soft, nontender to mod diffuse palpation EXTREMITIES: extremities with 2+ bilateral pedal edema, no cyanosis, warm and well perfused,No calfor thigh erythema,tenderness or edema, SKIN: intact, no jaundice, IV sites clean, dry LABORATORY: Recent Labs 12/09/24 18012/10/24 0410 12/10/24 1537 12/11/24 0544 WBC 7.1 7.1 9.8 11.9* HGB 11.6* 11.0* 10.4* 10.5* HCT 38.2 35.7* 32.6* 33.4* PLT 178 170 169 178 Recent Labs 12/09/24 18012/10/24 0410 12/11/24 0544 NA 137 137 143 K 4.0 3.9 2.7* CL 100 100 102 CO2 21* 23 25 CA 9.5 9.2 8.7 BUN 12 13 20 CREAT 0.53 0.56 0.59 GLUCOSE 296* 482* 283* Recent Labs 12/09/24 18012/10/24 0410 TOTALPROTEIN 6.9 6.7 ALBUMIN 3.5 3.5 BILITOTAL 0.2 <0.2 ALKPHOS 144* 146* AST 21 19 ALT 25 24 Recent Labs 12/09/24201112/10/24 0411 12/11/24 0544 INR 1.1 1.1 1.2 PT 14.4 14.6 15.6* Recent Labs 12/09/24 18012/09/24 2254 12/10/24 0410 BASETROP 20* -- -- 2HRTROP -- 23* -- DELTA -- 3 -6 6HRTROP -- -- 14* Diagnostic testing reviewed by me: Medications were reviewed by me. Primary discharge diagnosis: COPD exacerbation (CMS/HCC) Other active medical issues also addressed during this admission: Active Hospital Problems Diagnosis COPD exacerbation (CMS/HCC) Essential hypertension Morbid obesity due to excess calories (CMS/HCC) CAD (coronary atherosclerotic disease) 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) 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) Chronic respiratory failure with hypoxia, on home O2 therapy (CMS/HCC) History of pulmonary embolism Type 2 diabetes mellitus without complication, without long-term current use of insulin ([facility]/HCC) Opioid dependence ([facility]/HCC) Bipolar affective disorder ([facility]/HCC) Hypertension Resolved Hospital Problems No resolved problems to display. ASSESSMENT AND PLAN: Recent Labs 12/11/24 0907 12/11/24 1007 12/11/24 1108 12/11/24 1209 GLUCPOC 250* 253* 232* 246* COPD exacerbation (CMS/HCC) acute on chronic hypoxic, hypercarbic respiratory failure - CTA chest xray personally reviewd and showed ground glass opacities; no evidence of lobar pneumonia, no PE - Oxygen delivery via nasal cannula, BiPAP at night as needed or as BROTH MIXER - Titrate oxygen for SpO2 90-93% - RT assess and treat -12/09 blood cultures PENDING - Check respiratory PCR RT to inducePENDING - Check sputum cultures RT to induce PENDING - PRN/scheduled breathing treatments per RT protocol - Steroids IV on 06/09 then changed to p.o. disown as tolerated - Antibiotics with cefepime given amount of exacerbations currently on cefepime -RT to induce sputum for pneumonia PCR and sputum culture-[facility] .3 bicarb 27 Chest pain with elevated troponins/chest wall pain -Patient complains of diffuse pain over her chest -Stat EKG without acute ischemic changes -Troponin -Cardiology consulted and findings atypical chest pain no evidence of ACS continue GDMT and monitorthat pain response to her treatment for COPD exacerbation -Analgesics Bipolar affective disorder ([facility]) Continue BROTH MIXER meds Hypertension - Resume BROTH MIXER antihypertensive medications as indicated - Monitor adjust medications as needed -Currently 117-1 30s/60s-80s Type 2 diabetes mellitus without complication, without long-term current use of insulin ([facility]) - POC glucose before meals and at bedtime - Low dose correctional Sliding scale insulin - Will titrate insulin regimen based on response - Hypoglycemia precuations - Hold oral hypoglycemics while inpatient -Initially 486 then 524 this morning of 12/10 -12/10 initiated insulin drip and glargine as per pharmacy hyperglycemia protocol -12/11 transition to glargine 25 units twice a day and high sliding scale lispro every 4 hours History of pulmonary embolism - INR subtherapeutic currently 1.0 - Monitor daily INR -Initiated heparin drip for coverage - Warfarin and creased from 10 to 15 units daily -Daily INR -On warfarin 10 mg daily INR 1+warf 15 mg->1.2+15 mg-> Chronic respiratory failure with hypoxia, on home O2 therapy ([facility]) Chronic combined systolic and diastolic congestive heart failure ([facility]) - Currently no strong evidence of exacerbation of CHF with BNP of 201 - Continue home Lasix - Monitor I's and O's net -21.8 L Insulin dependent type 2 diabetes mellitus ([facility]) - POC glucose before meals and at bedtime - Low dose correctional Sliding scale insulin - Will titrate insulin regimen based on response - Hypoglycemia precuations - Hold oral hypoglycemics while inpatient CAD (coronary atherosclerotic disease) - Currently no evidence of ACS - Telemetry Morbid obesity due to excess calories ([facility]) - Complicates all aspects of care CODE STATUS: Full DVT prophylaxis: Warfarin Diet: Diabetic Outpatient follow up: PCP, pulmonology Anticipated Disposition Location: Home Timeframe: 2 to 4 days Criteria: Clinical stability Education/DME/Equipment Needs: TBD Patient's understanding of illness: Moderate Primary family contact: Mother Evelyn Encinas [phone] Code status: Full Code MDM high level 3 Care included, Preparing to see the patient, Obtaining and/or reviewing separately obtained history, Performing a medically appropriate examination and/or evaluation, Counseling and educating the patient/family/caregiver, Ordering medications, tests or procedures, Documenting clinical information in the medical record, Referring and communication with other health care asst (not separately reported), and Independently interpreting results and communicating results to the patient/family/caregiver (not separately reported). POCV with RN Mary Chen MD 12/11/2024, 2:04 PM * Tiffanie Dawn FNP - 12/11/2024 5:00 AM CDT [facility] patient identifier: Le Diaz 1965 Called for: hyperglycemia Last Recorded Vitals: BP 122/64 Pulse 81 Temp 97 ??F (36.1 ??C) (Temporal) Resp 21 Ht 5' 4 (1.626 m) Wt 102.5 kg (225 lb 15.5 oz) SpO2 93% BMI 38.79 kg/m?? Small amount stool () Pain Rating: Rest: 9 (12/10/24 221) This is a 59 year old female here with COPD exacerbation. She has a history of known morbid obesity, chronic combined CHF, COPD, DM, hx of PE, and hypertension. RN called for blood sugar of 419. She is taking 40 units of Lantus at bedtime and Humalog sliding scale coverage with meals. Documentation/Intervention/Outcome: Chart reviewed. 8 units of Humalog Recheck blood sugar 300 4 units of Humalog Recheck in am Please call back any time if I can be of more assistance. RALEIGH Malloy Cosigned by Huy Ornelas MD at 12/11/2024 5:15 AM CDT * Otis Chen MD - 12/10/2024 3:11 PM CDT [facility] life [facility] work [facility] Hospitalist/Hospital Medicine Progress Note LOS: 1 day Room/Bed: 42505/21 Patient name: Le Diaz Date of : 1965 HOSPITAL COURSE SUMMARY: Shortness of Breath Hx of COPD. Increasing Sob for last 2hrs. Labored breathing in triage. SPO2 90% on home 3L NC History of present illness: Patient was seen and examined at the bedside. Le Diaz is a 59 y.o. female with known morbid obesity, chronic combined CHF, COPD, diabetes mellitus, history of PE, hypertension who is being admitted for further evaluation of recurrent COPDexacerbation. Patient was discharged from our facility roughly 7 days ago for the same issue. Patient has had a numerous amount of admissions this year for recurrent issues with COPD. Patient states her shortness of breath began shortly before arrival. She has had increased cough as well. She feelsthat her belly is pushing up into her chest wall making it difficult to breathe. Typically patient comes in she always requires BiPAP temporarily. Otherwise patient denies any new complaints over her normal issues with COPD. Her clinical course is very similar to today where she typically requires BiPAP, is transition to nasal cannula and is typically discharged somewhere between 48 hours and 5 days later. CTA chest shows Patient's labs are at baseline with no acute abnormality. VBG is otherwise reassuring. Will check respiratory PCR and sputum cultures for completeness sake. Will continue COPD treatment with cefepime given amount of exacerbations, breathing treatments and steroids. 12/10 assigned, assumed care patient with acute hypoxic respiratory failure required BiPAP from 7 PMto 10 PM and has been subsequently placed on 4 L O2 per nasal cannula saturating 91-96% with no increased work of breathing. Chronically on warfarin she is for DVT PE in the last year and it is not therapeutic so we will start heparin drip and initiate increased warfarin as of 15 mg as patient beentaking 10 mg daily she reports compliance and her INR is 1.0 Consultants: IP CONSULT TO CASE MANAGEMENT IP CONSULT TO WOUND/SKIN CARE TEAM IP CONSULT TO PASTORAL SERVICES IP CONSULT TO IV TEAM IP CONSULT TO IV TEAM SUBJECTIVE: My breathing is better ROS: No except as above 12/10 History obtained from the patient- OBJECTIVE: Temp (24hrs), Av.8 ??F (36.6 ??C), Min:97.1 ??F (36.2 ??C), Max:98.6 ??F (37 ??C) BP 109/70 Pulse 95 Temp 97.3 ??F (36.3 ??C) (Temporal) Resp 21 Ht 5' 4 (1.626 m) Wt 102.5 kg (225 lb 15.5 oz) SpO2 96% BMI 38.79 kg/m?? Intake/Output Summary (Last 24 hours) at 12/10/2024 1511 Last data filed at 12/10/2024 1200 Gross per 24 hour Intake 1110 ml Output 200 ml Net 910 ml Last documented weight: Weight: 102.5 kg (225 lb 15.5 oz) (12/10/24 0453) EXAM: Examined at bedside 12/10 GENERAL APPEARANCE: alert, oriented, affect appropriate,following commands HEENT: PERRL, conjunctiva/ lids clear, neck supple, NEURO:CN2-12 wnl, PERRL moving all extremities spontaneously and symmetrically, tardive dyskinetic head movements CARDIOVASCULAR: regular rate and rhythm, S1, S2 normal, no murmur, click, rub or gallop, LUNGS: clear to auscultation bilaterally anteriorly and posteriorly.No wheezing noted. No increasedwork of breathing noted at rest CHEST WALL EXAM: no crepitance, diffusely tender to moderate palpation BACK: symmetric excursion, without spinous or cva tenderness bilat ABDOMEN: benign, normoactive bowel sounds, no organomegaly or masses, no rebound , no guarding, Non distended, soft, nontender to mod diffuse palpation EXTREMITIES: extremities with 2+ bilateral pedal edema, no cyanosis, warm and well perfused,No calfor thigh erythema,tenderness or edema, SKIN: intact, no jaundice, IV sites clean, dry LABORATORY: Recent Labs 12/09/24180812/10/24 0410 WBC 7.1 7.1 HGB 11.6* 11.0* HCT 38.2 35.7* PLT 178 170 Recent Labs 12/09/24 18012/10/24 0410 NA 137 137 K 4.0 3.9 CL 100 100 CO2 21* 23 CA 9.5 9.2 BUN 12 13 CREAT 0.53 0.56 GLUCOSE 296* 482* Recent Labs 12/09/24 18012/10/24 0410 TOTALPROTEIN 6.9 6.7 ALBUMIN 3.5 3.5 BILITOTAL 0.2 <0.2 ALKPHOS 144* 146* AST 21 19 ALT 25 24 Recent Labs 12/09/24201112/10/24 0411 INR 1.1 1.1 PT 14.4 14.6 Recent Labs 12/09/24 18012/09/24 2254 12/10/24 0410 BASETROP 20* -- -- 2HRTROP -- 23* -- DELTA -- 3 -6 6HRTROP -- -- 14* Diagnostic testing reviewed by me: Medications were reviewed by me. Primary discharge diagnosis: COPD exacerbation (CMS/HCC) Other active medical issues also addressed during this admission: Active Hospital Problems Diagnosis COPD exacerbation ([facility]/HCC) Essential hypertension Morbid obesity due to excess calories ([facility]) CAD (coronary atherosclerotic disease) Insulin dependent type 2 diabetes mellitus ([facility]/HCC) Chronic combined systolic and diastolic congestive heart failure ([facility]/HCC) Chronic respiratory failure with hypoxia, on home O2 therapy ([facility]) History of pulmonary embolism Type 2 diabetes mellitus without complication, without long-term current use of insulin ([facility]/HCC) Opioid dependence ([facility]/HCC) Bipolar affective disorder ([facility]) Hypertension Resolved Hospital Problems No resolved problems to display. ASSESSMENT AND PLAN: Recent Labs 12/10/24 0157 12/10/24 0515 12/10/24 0735 12/10/24 1131 GLUCPOC 315* 473* 486* 524* COPD exacerbation (CMS/HCC) acute on chronic hypoxic, hypercarbic respiratory failure - CTA chest xray personally reviewd and showed ground glass opacities; no evidence of lobar pneumonia, no PE - Oxygen delivery via nasal cannula, BiPAP at night as needed or as BROTH MIXER - Titrate oxygen for SpO2 90-93% - RT assess and treat -12/09 blood cultures PENDING - Check respiratory PCR RT to inducePENDING - Check sputum cultures RT to induce PENDING - PRN/scheduled breathing treatments per RT protocol - Steroids IV on 06/09 then changed to p.o. disown as tolerated - Antibiotics with cefepime given amount of exacerbations currently on cefepime -RT to induce sputum for pneumonia PCR and sputum culture-VBG 7.3 / bicarb 27 Chest pain with elevated troponins/chest wall pain -Patient complains of diffuse pain over her chest -Stat EKG without acute ischemic changes -Troponin -Cardiology consulted -Analgesics Bipolar affective disorder ([facility]) Continue BROTH MIXER meds Hypertension - Resume home blood medications as indicated - Monitor adjust medications as needed -Currently 109-1 30s/60s Type 2 diabetes mellitus without complication, without long-term current use of insulin ([facility]) - POC glucose before meals and at bedtime - Low dose correctional Sliding scale insulin - Will titrate insulin regimen based on response - Hypoglycemia precuations - Hold oral hypoglycemics while inpatient -Initially 486 then 524 this morning of 12/10 -12/10 initiated insulin drip and glargine as per pharmacy hyperglycemia protocol History of pulmonary embolism - INR subtherapeutic currently 1.0 - Monitor daily INR -Initiated heparin drip for coverage - Warfarin and creased from 10 to 15 units daily -Daily INR Chronic respiratory failure with hypoxia, on home O2 therapy ([facility]) Chronic combined systolic and diastolic congestive heart failure ([facility]) - Currently no strong evidence of exacerbation of CHF with BNP of 201 - Continue home Lasix - Monitor I's and O's Insulin dependent type 2 diabetes mellitus ([facility]) - POC glucose before meals and at bedtime - Low dose correctional Sliding scale insulin - Will titrate insulin regimen based on response - Hypoglycemia precuations - Hold oral hypoglycemics while inpatient CAD (coronary atherosclerotic disease) - Currently no evidence of ACS - Telemetry Morbid obesity due to excess calories ([facility]) - Complicates all aspects of care CODE STATUS: Full DVT prophylaxis: Warfarin Diet: Diabetic Outpatient follow up: PCP, pulmonology Anticipated Disposition Location: Home Timeframe: 2 to 4 days Criteria: Clinical stability Education/DME/Equipment Needs: TBD Patient's understanding of illness: Moderate Primary family contact: Mother Evelyn Encinas [phone] Code status: Full Code [facility] high level 3 spent 53 minutes Care included, Preparing to see the patient, Obtaining and/or reviewing separately obtained history, Performing a medically appropriate examination and/or evaluation, Counseling and educating the patient/family/caregiver, Ordering medications, tests or procedures, Documenting clinical information in the medical record, Referring and communication with other health care asst (not separately reported), and Independently interpreting results and communicating results to the patient/family/caregiver (not separately reported). POCV with RN Bret Chen MD 12/10/2024, 3:11 PM * Ashkan Meraz, Occupational Therapist - 12/10/2024 2:02 PM CDT [facility] - Therapy Services 3K Ph. Acute Occupational Therapy Evaluation 12/10/2024 Room: [address] [place] [address] Name: Le Diaz Age: 59 y.o. Patient Class: Inpatient Date of : 1965 Insurance: Payor: MEDICAID / Plan: MEDICAID [place] / Product Type: Medicaid / Prior to OT session thorough chart review completed, including prior OT notes as applicable. Consent to evaluate provided by patient and nurse Date of admission: 12/09/2024 SUBJECTIVE Occupational Profile Information provided by: patient Prior Level of Function ADLs: independent IADLs: shares with roommates Functional mobility: modified independent with motorized scooter inside house. Pt is able to go up/down steps and walk outside to car when holding onto roommate's arm. Falls: 10+ in the last 6 months Home Information Self-care assist available at home: reports she lives with 3 roommates who can help Home environment: 1-level home 6 step(s) to enter Durable medical equipment already in home: Scooter, 4WW Additional Information Patient/family statement/goal(s): get stronger Comments: pt pleasant and agreeable to therapy Pain: Refer to flowsheet for documentation of pain and interventions. OBJECTIVE Cognition Level of alertness: alert Orientation: x4 WNL Command following: good Safety awareness: fair; limited by impulsivity Memory: WFL conversationally Vision: not assessed UE Function UE Assessment Right Left ROM Not formally assessed; adequate for functional tasks Not formally assessed; adequate for functional tasks Strength Not formally manual muscle tested; strength is adequate for functional tasks Not formally manual muscle tested; strength is adequate for functional tasks All additional UE assessments (including tone, coordination, sensation, and edema) not indicated ordeemed WFL. Lower extremity comments: See PT note for additional details. Occupational Performance Activities of Daily Living Feeding: NT; anticipate independent for [id number] excursion Grooming: NT; anticipate supervision standing at sink Upper extremity dressing: NT; anticipate independent Lower extremity dressing: NT; anticipate supervision Toileting: independent on toilet Toilet transfer: supervision sit < > stand from toilet All tasks not tested with anticipated assist levels are based on observed tasks and movement patterns. Functional Mobility All mobility completed with gait belt and non-skid socks Bed mobility: independent supine < > sit EOB Sit to stand: supervision from EOB Functional ambulation: supervision x 30 feet in room, PAYNE and fatigue with mobility. No overt LOB. Sitting balance: independent for static tasks Standing balance: supervision for static tasks [facility] Daily Activity How much help from another person does the patient currently need? Score 1. Putting on and taking off regular lower body clothing? 3 - A little (supervision to min assist) 2. Bathing (including washing, rinsing, drying)? 3 - A little (supervision to min assist) 3. Toileting, which includes using toilet, bedpan or urinal? 4 - None (independent) 4. Putting on and taking off regular upper body clothing? 4 - None (independent) 5. Taking care of personal grooming such as brushing teeth? 3 - A little (supervision to min assist) 6. Eating meals? 4 - None (independent) Total score 21/24 0-19 indicates likely facility discharge 19-24 indicates likely community discharge *Scores determined based on patient report, observation or professional expertise* Vitals Current O2 requirement: 4 L/min via nasal cannula Vital signs stable throughout. Precautions Patient precautions: bleeding Patient bracing: none Weight bearing: no restrictions ASSESSMENT & PLAN Evaluation Details Le Diaz is a 59 y.o. female referred for OT following admission for COPD exacerbation. Additional pertinent diagnoses and past medical history related to this hospital stay are present in physician H&P and physician daily notes. OT evaluation: Low complexity Assessment Patient is currently functioning near her prior level of function. Patient presents with acute functional deficits including: Decreased endurance Medical complexity These deficits impact patient ability to complete: Functional mobility Bathing Toileting Dressing Personal hygiene/grooming Patient would benefit from continued skilled OT services in order to increase occupational performance through modification and remediation approaches such as ADL training, endurance training, and functional transfer training Plan During acute hospitalization, recommend medium frequency treatment (3-5 times/week). Current plan of care to continue until goals met or patient discharges from facility Anticipate 1 more OT treatment session with specific focus on ADLs and functional mobility Recommendations Based on OT assessment of patient's ability to complete self care tasks and AM- PAC Daily Activity Score, anticipated discharge disposition, once medically ready: [facility] (12/10/241451). Rationale: Safety concerns present. Patient reports multiple falls in the last few months. Unsure she has enough help at home to remain there safely. * The final discharge location is determined through physician, case management, and patient/caregiver input along with insurance authorization of skilled services when appropriate. OT recommended DME and AE upon discharge: To be determined (12/10/241451) No new additional adaptive equipment necessary (12/10/241451) Education provided to patient regarding OT recommendations and plan of care, goals of session, safemobility Education response: verbalized understanding Nursing Staff Mobility Recommendations Recommended daily activity during admission: up with supervision Disposition At start of session, patient found lying in bed At end of session, patient left in bed, call light in reach, and bed alarm activated Further treatment notes and therapeutic goals can be found in Care Plan Notes. If the patient discharges from facility before another therapy visit, this shall serve as therapy discharge summary. Thank you for this referral, Ashkan Meraz Occupational Therapist * Hanna Olsen, Physical Therapist - 12/10/2024 12:51 PM CDT [facility] - Therapy Services 3K Ph. Acute Physical Therapy Evaluation 12/10/2024 Room: [address] [place] [address] Name: Le Diaz Age: 59 y.o. Date of : 1965 Insurance: Payor: MEDICAID / Plan: MEDICAID [place] / Product Type: Medicaid / Patient Class: Inpatient Onset of illness/injury or date of surgery: 12/09/2024 Subjective Information/History Subjective Information Provided By: Patient Patient cleared to participate in PT Patient has had multiple admissions since May 2024. Prior level of Function: modified independent with transfers to motorized scooter used in house; reports having to ambulate outside of house holding onto roommate for stability; assistance needed forall ADL's and iADL's. Patient DOES have a fall history reports greater than 10 falls in the alst 6 months with 2 this last week. Home Environment: 1-Story home Number of Outside Stairs: 6 steps Available Adaptive Equipment: Walkers: 2 wheeled and 4 wheeled Hospital Bed Home Oxygen Motorized scooter - just received 2 weeks ago Assistance available: Patient lives with 3 roommates who are available 13/10 to assist, unknown how much supervision is provided due to the number of falls patient has had. Patient/Family Goals Statement: If I have to go somewhere I want it to be in [place] Consent To Treatment Given By: Patient and Nurse Pain: Refer to Doc Flowsheet for documented pain levels. Safety Awareness Orientation: Person, Place, Date, and Situation Command Following: fair Safety Awareness: Poor, impulsive, slow processing, decreased problem solving, poor insight into deficits, and poor attention to task Precautions Patient Precautions: Fall Risk Bracing/Orthotics: none Weight Bearing: No Restrictions Objective Information/Examination Muscle Tone: Normal Coordination: Not Tested due to patient cognition Sensation: Intact to light touch ROM/Strength: BLE ROM WFL; BLE strength generalized weakness limiting functional ADL's, balance, and activity tolerance. Balance: fair Functional Mobility: sit to/from stand (chair & BSC) supervision (patient impulsively transferred to BSC <>chair before therapist can provide safety measure, educated patient on fall risk) Gait/Deviations: Gait Distance: 12 feet Assistive Device Used: rolling walker with minimal assistance Gait Deviations: unsteady, decreased safety awareness, patient reports dizziness while ambulated, able to return to chair, reports improvement. Vitals Patient on 3 liters/min via nasal cannula [facility] AM-PAC Basic Mobility How much help from another person does the patient currently need? Score 1. Turning from your back to your side while in a flat bed without using bedrails? 3 - A little (supervision to min assist) 2. Moving from lying on your back to sitting on the side of a flat bed without using bedrails? 3 - A little (supervision to min assist) 3. Moving to and from a bed [...] or cannot do at all Total score 16/24 0-16 - indicates likely facility discharge 17-24 indicates likely community discharge * scores determined based on patient report, observation or professional expertise Assessment/Plan Le Diaz is a 59 y.o. female is referred for physical therapy. Based on objective findings above, the patient presents with the following impairments: decreased ability to transfer safely, balance deficits, decreased activity tolerance, decreased strength, gait disturbance, history of frequent falls at home, limited safety awareness, and risk for falls which impacts the patient's ability tomobilize safely. Functional Prognosis: Based on prior level of function and deficits, anticipate good progress. Rationale: The Patient is well below their prior level of function and is in need of further therapies to help regain lost function and to improve safety. Plan will include but is not limited to: Gait Training, Transfer Training, Patient/Family Education, Stair Training, Home & Safety Instruction, Balance Training, ADL Training, and Functional Strengthening. PT Evaluation: low complexity Recommendations During acute hospitalization, recommend medium frequency treatment (3-5 times per week). Current plan of care to continue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 Doctor/Primary Care Provider. All questions answered. Signed: Efraín Dey DO 12/09/2024, 11:41 PM This document was created by voice recognition software. A conscious effort has been made to improve accuracy of the heel slugger. Any obvious errors or omissions should be clarified with the authorof this document. documented in this encounter Procedure Notes * Nupur Rossi RN - 12/11/2024 6:24 PM CDTProcedure(s): INSERT PERIPHERAL IV VASCULAR ACCESS TEAM Peripheral IV insertion PATIENT NAME: Le Diaz DATE OF : 1965 CSN: [id number] DATE: 12/11/2024 Room: [address] [place] [address] Admit Date: 12/09/2024 Hospital day: LOS: 2 days Allergies: Allergies Allergen Reactions Ketorolac Tromethamine Hives Prochlorperazine Hives and Seizure Propoxyphene Nausea and Vomiting Tramadol Hives Codeine Itching Propoxyphene N-Acetaminophen Nausea and Vomiting PERIPHERAL IV INSERTION Ultrasound assessment was performed to assess adequacy of vascular anatomy Adequate vessel was located Insertion site cleansed for 30 seconds with Chlora-prep. Allowed to dry before initial needle stick. A 20 Gauge 1.25 Inch peripheral IV was successfully placed using ultrasound guidance in the right lower arm Secure port adhesive used Yes 1 attempt 30 minutes required to complete procedure Positive blood return noted Neutral pressure cap applied Catheter Flushed with 5ml of Normal Saline Transparent dressing applied with date, time and initials of cowoker inserting. LDA documentation is contained in EMR flowsheet Patient tolerated well. Nupur Rossi RN * Tresa Poe RN - 12/10/2024 3:40 PM CDTProcedure(s): INSERT MIDLINE IV Images from the original note were not included. VASCULAR ACCESS NOTE Midline PATIENT NAME: Le Diaz DATE OF : 1965 CSN: [id number] DATE: 12/10/2024 Room: [address] [place] [address] Admit Date: 12/09/2024 Hospital day: LOS: 1 day LINE STATUS: A Midline catheter was successfully inserted and can be used Adult Midline Catheter: Single Lumen 12/10/24 1535 Left: basilic vein (Active) 12/10/24 1535 basilic vein Earliest Known Present: Present on Admission: No Orientation: Left: Size: Number of Insertion Attempts: 1 Insertion: Patient Tolerance: tolerated well Insertion: Pain Prevention: distraction Power Injectable Compatable: Yes Earliest Known Removed: Removal Indication: Removal Interventions: *Procedural Assist Insertion of Midline catheter WO SQ port >5 yrs 12/10/24 1539 Inserted Catheter Length (cm) 10 12/10/24 1539 Midline Catheter (WDL) WDL 12/10/24 1539 *Blood draw from Midline catheter Blood draw from Midline catheter placed in current admission 12/10/24 1539 Extremity Circumference, Mid-Upper (cm) 30 12/10/24 1539 Patency flushes w/o difficulty;positive blood return 12/10/24 153 Line Interventions antimicrobial cap/s in place or applied to line and/or tubing;system flushed;IV capped 12/10/241538 Dressing Type/Securement antimicrobial dressing;transparent dressing;site adhesive;secured w/ sterile tape strips 12/10/24 153 Dressing Changed Date 12/10/24 12/10/241538 Needleless Connector Changed Date 12/10/24 12/10/24 153 Line Criteria Multiple infusions or med incompatibility;Poor venous access 12/10/24 153 Number of days: 0 MIDLINE PROCEDURE A [...] stick. A midline was inserted in the Basilic vein of the left upper arm using ultrasound guidance under sterile technique. 20 gauge, 10 cm Secure port adhesive used Yes 1 attempts 45 minutes required to complete procedure Positive blood return visualized. Blood collected and labeled by lab staff and sent to lab. Neutral pressure cap applied Catheter flushed easily with 5ml of Normal Saline Transparent antimicrobial stabilization dressing applied Antimicrobial cap placed Dressing with date, time and initials of RN Patient tolerated procedure well. Primary care nurse notified of catheter placement Tresa Poe RN CARE AND MAINTENANCE This is not a central line. NO BLOOD PRESSURES on arm with powerglide Requires physician order for blood draws The midline is indicated for use as a peripheral IV access only The midline is Power injectable - Securely apply neutral OR positive pressure cap when not in use. Use port protector cap when not in use Flush the catheter with 5 mL of normal saline every 12 hours or after each use, using a 10 mL or larger Flush the catheter with 10ml normal saline before blood draw and flush with 20 ml of normal saline after blood draws, using a 10ml or larger syringe. Waste 5ml prior to collection. Flush catheter once weekly when not in use(outpatient setting). Flush catheter using pulsating start-stop technique Always use 10ml syringe when flushing Do not forcefully flush against resistance Change dressing weekly and as needed using sterile technique documented in this encounter Consult Notes * Savannah Daily RCP - 12/13/2024 10:08 AM CDT Oxygen Saturation Study Pt refused to walk or do movement Lowest SpO2 Heart Rate Range Distance in Feet Dyspnea Pre-Exertion Rest: Room Air 88% 89 Laying in bed 0 Rest: Oxygen @ 2 L/min via Nasal Cannula 93% 89-94 Laying in bed 0 Length of time walked in minutes: 6 minutes Number of rest periods (if applicable): 0 / n/a Patient response to exercise: pt tolerated poorly, pt refused to walk or do movement Oxygen required to maintain SpO2 >88% (will require portability): YES Recommendations: Oxygen at REST: 2 Oxygen with ACTIVITY: 2 Using finger probe This Home Oxygen Evaluation has been performed for an awake and mobile patient and is not an evaluation for Nocturnal Sleep Study oxygen requirements. Unless patient's condition warrants a repeat Home Oxygen Evaluation, this Home Oxygen Evaluation isvalid for 48 hours from date/time performed. Siderails up x 2 Call light within patient reach Cardiopulmonary Rehab Team Zone Phone: [phone] * Stacy Jensen RN - 12/12/2024 11:05 PM CDTAssociated Order(s): IP CONSULT TO IV TEAM VASCULAR ACCESS CONSULT PATIENT NAME: Le Diaz DATE OF : 1965 CSN: [id number] DATE: 12/12/2024 Room: [address] [place] [address] Admit Date: 12/09/2024 Hospital day: LOS: 3 days Primary nurse informed PICC team that after changing the dressing, the current midline is working and PICC team is not needed Stacy Jensen RN * Vashti Zendejas RN - 12/12/2024 11:25 AM CDTAssociated Order(s): IP CONSULT TO WOUND/SKIN CARE TEAM; IP CONSULT TO WOUND/SKIN CARE TEAM Skin/Wound/Ulcer/Pressure Injury Consult [facility] Patient Information Today's Date: 12/12/2024 Name: Le Diaz Age: 59 y.o. Date of : 1965 CSN: [id number] Date/time of admission: 12/09/2024 5:59 PM Hospital day: LOS: 3 days Room: [address] [place] [address] Physical Assessment Wound Details: Photos in chart Wound 11/22/24 0028 Bilateral groin Irritant Contact Dermatitis Moisture Related (Active) Wound (WDL) WDL except 12/12/24 1100 Pictures Taken (Date) 12/12/24 12/12/24 1100 Drainage Amount no drainage 12/12/24 1100 Wound Shape irregular 12/12/24 1100 Wound Base reddened 12/12/24 1100 Periwound Area macular 12/12/24 1100 Wound Care: Cleansed w/ chlorhexidine solution 12/10/24 1358 Wound Care: Interventions open to air 12/11/24 1932 Topical Agent moisture barrier cream 12/12/24 1100 Mattress/surface type: IsoTour Gel NOTES: Focused skin assessment per consult order. Nutrition BMI: Body mass index is 38.64 kg/m??. Current diet order: DIET DIABETIC Pressure Injury Prevention Recommendations Turn / reposition at minimum of every 2 hours or more frequently as determined by patient condition When in chair reposition at minimum every 1 hour or more frequently as determined by patient Condition Keep skin clean and free of excess moisture Frequent perineal care for excess moisture and with any soiling Protect and float heels when in bed --as condition allows HOB at lowest level tolerated by patient and medical condition. Do not massage bony prominences. Prevent shearing by utilizing lift sheets and appropriate lift equipment based on patient needs. Skin Assessment every shift ? Wound/Dressing Recommendations Recommendations: Perineum- Kin BID and PRN. Skin team will not follow general wounds. Pressure injuries to be followed weekly unless otherwise specified. Will need to be re-consulted for new skin concerns. Total time spent: 30 min. Vashti J Zendejas, RN Skin/Wound/Ostomy Please call hospital fertilizing machine operator to have skin team paged with questions or needs. 820 * Nupur Rossi RN - 12/11/2024 5:32 PM CDTAssociated Order(s): IP CONSULT TO IV TEAM VASCULAR ACCESS CONSULT PATIENT NAME: Le Diaz DATE OF : 1965 CSN: [id number] DATE: 12/11/2024 Room: [address] [place] [address] Admit Date: 12/09/2024 Hospital day: LOS: 2 days INDICATION: Per order: Lost both lines and she is on heparin drip. EXCLUSIONS/CONSIDERATIONS: Right mastectomy-Per Vanessa she had no lymph nodes removed and indicatesshe may have venipuncture in her right arm LAST RECORDED TEMP: Temp: 98 ??F (36.7 ??C) (12/11/24 1530)] Assessment Allergies Allergen Reactions Ketorolac Tromethamine Hives Prochlorperazine Hives and Seizure Propoxyphene Nausea and Vomiting Tramadol Hives Codeine Itching Propoxyphene N-Acetaminophen Nausea and Vomiting Lab Results Component Value Date/Time CREAT 0.59 12/11/2024 05:44 AM BUN 20 12/11/2024 05:44 AM NA 143 12/11/2024 05:44 AM K 2.7 (L) 12/11/2024 05:44 AM KPOC 3.8 12/09/2024 07:48 PM CL 102 12/11/2024 05:44 AM CO2 25 12/11/2024 05:44 AM GFR >60 12/11/2024 05:44 AM Lab Results Component Value Date/Time WBC 11.9 (H) 12/11/2024 05:44 AM HGB 10.5 (L) 12/11/2024 05:44 AM HGBPOC 12.1 12/09/2024 07:48 PM HCT 33.4 (L) 12/11/2024 05:44 AM HCTPOC 36 (L) 12/09/2024 07:48 PM PLT 178 12/11/2024 05:44 AM MCV 92.8 12/11/2024 05:44 AM IRON 42 11/21/2024 07:37 PM TIBC 289 11/21/2024 07:37 PM FERRITIN 77 07/10/2023 02:17 PM Lab Results Component Value Date/Time INR 1.2 12/11/2024 05:44 AM INR 1.1 12/10/2024 04:11 AM INR 1.1 12/09/2024 08:12 PM PT 15.6 (H) 12/11/2024 05:44 AM PT 14.6 12/10/2024 04:11 AM PT 14.4 12/09/2024 08:12 PM Past Medical History: Diagnosis Date Anxiety [...] smear Hyperlipidemia Ischemic cardiomyopathy Lower extremity edema CT (myocardial infarction) (CMS/HCC) 2015 Neuropathy NSTEMI (non-ST [...] ESOPHAGOGASTRODUODENOSCOPY performed by Mikey Moon MD at [facility] MAIN OR HX MASTECTOMY Right no lymph node removal HX PTCA stents (x3 in 2016, x2 in 2019) HX SPINAL SURGERY 2005 C4-5 fusion at [place], [place] HX SPLENECTOMY HX SURGICAL OTHER 1984 vaginal reconstruction HX TONSILLECTOMY HX 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 INSERT MIDLINE IV 10/31/2024 INSERT MIDLINE IV 12/10/2024 OR CATH PLMT L HRT & ARTS W/NJX & ANGIO IMG S&I N/A 03/21/2024 Left heart cath performed by Kyler Helm MD at [facility] INVASIVE CARDIOLOGY OR CATH PLMT L HRT & ARTS W/NJX & ANGIO IMG S&I N/A 03/21/2024 Left Ventriculogram performed by Kyler Helm MD at [facility] INVASIVE CARDIOLOGY OR COLONOSCOPY FLX DX W/COLLJ SPEC WHEN PFRMD 01/23/2011 COLONOSCOPY performed by MACK BISWAS at [facility] ENDOSCOPY OR COLONOSCOPY FLX DX W/COLLJ SPEC WHEN PFRMD 09/19/2010 COLONOSCOPY performed by MACK BISWAS at [facility] ENDOSCOPY OR CORRECTION HAMMERTOE Left 07/20/2024 TOE(S) ARTHROPLASTY performed by Tereso Gil, DPM at [facility] MAIN OR OR EXPL PENETRATING WOUND SPX ABDOMEN/FLANK/BACK N/A 05/30/2023 LAPAROTOMY EXPLORATORY performed by Jose Cruz Montero DO at [facility] OR OR INJ SUBSTITUTE PARS PLANA/LIMBL W/WO ASPIR SPX Right 03/30/2024 EYE AIR FLUID GAS EXCHANGE performed by Eduardo Craven MD at [facility] SURGERY [employer] [facility] RPR RPTD SPLEEN SPLENORRHAPHY W/WO PRTL SPLENECT N/A 05/30/2023 SPLENECTOMY performed by Jose Cruz Montero DO at [facility] OR OR VITRECTOMY [facility] PARS PLNA FOCAL ENDOLASER PC Right 03/30/2024 PARS PLANA VITRECTOMY WITH LASER performed by Eduardo Craven MD at [facility] SURGERY [facility] Current Facility-Administered Medications: [COMPLETED] insulin lispro (HumaLOG,ADMELOG) injection 4 Units, 4 Units, subCUT, ONE time only, Tiffanie Dwan, [employer], 4 Units at 12/11/24 0523 [COMPLETED] potassium CHLORIDE 20 mEq/100 mL IVPB 20 mEq, 20 mEq, IV, every 4 hours, Otis Chen MD, Stopped at 12/11/24 1415 [COMPLETED] potassium CHLORIDE (KLOR-CON) SR tablet 40 mEq, 40 mEq, Oral, ONE time only, Otis Chen MD, 40 mEq at 12/11/24 0904 insulin glargine-yfgn injection 25 Units, 25 Units, subCUT, BID, Otis Chen MD, 25 Units at 12/11/24 1209 insulin lispro (HumaLOG,ADMELOG) injection 0-18 Units, 0-18 Units, subCUT, TID WITH meals, Otis Chen MD, 6 Units at 12/11/24 1211 insulin lispro (HumaLOG,ADMELOG) injection 0-9 Units, 0-9 Units, subCUT, daily BEDTIME, Otis Chen MD [START ON 12/12/2024] insulin lispro (HumaLOG,ADMELOG) injection 0-9 Units, 0-9 Units, subCUT, dailyat 0200, Otis Chen MD aspirin (CARTER CHEWABLE) chewable tablet 81 mg, 81 mg, Oral, daily, Cooper Deyory A, DO, 81 mg at12/11/24 08 atorvastatin (LIPITOR) tablet 40 mg, 40 mg, Oral, daily BEDTIME, DeyCooperEfraín A, DO, 40 mg at 12/10/24 2221 furosemide (LASIX) tablet 80 mg, 80 mg, Oral, BID, Dey, Efraín A, DO, 80 mg at 12/11/24 0821 isosorbide mononitrate (IMDUR) SR 24 hour tablet 30 mg, 30 mg, Oral, daily, Dey, Efraín A, DO, 30 mg at 12/11/24 0821 metoprolol succinate (TOPROL XL) SR 24 hour tablet 25 mg, 25 mg, Oral, daily, Dey, Efraín A, DO, 25 mg at 12/11/24 0821 sacubitriL-valsartan (ENTRESTO) 24-26 mg tablet 1 Tablet, 1 Tablet, Oral, BID, Efraín Dey DO, 1 Tablet at 12/11/24 0824 sertraline (ZOLOFT) tablet 50 mg, 50 mg, Oral, daily, Efraín Dey DO, 50 mg at 12/11/24 0821 OLANZapine (ZyPREXA) tablet 10 mg, 10 mg, Oral, daily BEDTIME, Efraín Dey DO, 10 mg at 12/11/24 0028 cefePIME (MAXIPIME) 2,000 mg in sodium chloride 0.9% 50 mL IVPB (MBP), 2,000 mg, IV, every 12 hours(2 times daily), Efraín Dey DO, Stopped at 12/11/24 0857 ipratropium-albuteroL (DUONEB) 0.5 mg-3 mg(2.5 mg base)/3 mL inhalation solution 3 mL, 3 mL, Inhalation, resp, every 6 hours PRN AND [DISCONTINUED] albuterol (PROVENTIL,VENTOLIN) 2.5 mg /3 mL (0.083 %) inhalation solution 2.5 mg, 2.5 mg, Inhalation, resp, every 6 hours PRN, Efraín Dey DO morphine (MS IR) tablet 15 mg, 15 mg, Oral, every 6 hours PRN, Otis Chen MD, 15 mg at 12/11/24 1223 HYDROcodone-acetaminophen (NORCO) 7.5-325 mg per tablet 1 Tablet, 1 Tablet, Oral, every 6 hours PRN, Otis Chen MD, 1 Tablet at 12/11/24 1112 dextrose 5 % - sodium chloride 0.9 % infusion, , IV, see admin instructions, Otis Chen MD sodium chloride 0.9 % infusion, , IV, continuous, Otis Chen MD, Stopped at 12/11/24 0710 dextrose 5 % - sodium chloride 0.9 % infusion, , IV, continuous, Otis Chen MD, Stopped at 12/11/24 1213 heparin in 0.45% NaCl 25,000 unit/250 mL infusion, 17 Units/kg/hr (Adjusted), IV, titrate, Otis Chen MD, Last Rate: 14.8 mL/hr at 12/11/24 1419, 20 Units/kg/hr at 12/11/24 1419 warfarin (COUMADIN) tablet 15 mg, 15 mg, Oral, daily LATE, Otis Chen MD, 15 mg at 12/11/24 1623 sodium chloride flush injection 10 mL, 10 mL, IV, BID, Otis Chen MD, 10 mL at 12/11/24 1626 [COMPLETED] insulin lispro (HumaLOG,ADMELOG) injection 8 Units, 8 Units, subCUT, ONE time only, Tiffanie Dawn, [employer], 8 Units at 12/10/24 2244 [DISCONTINUED] insulin glargine-yfgn injection 40 Units, 40 Units, subCUT, daily BEDTIME, Efraín Dey DO, 40 Units at 12/10/24 2243 [DISCONTINUED] insulin regular (HumuLIN R,NovoLIN R) 1 Units/mL in sodium chloride 0.9 % infusion, 0-25 Units/hr, IV, titrate, Otis Chen MD, Stopped at 12/11/24 1206 sodium chloride flush injection 10 mL, 10 mL, IV, every 12 hours (2 times daily), Efraín Dey DO, 10 mL at 12/11/24 1626 sodium chloride flush injection 10 mL, 10 mL, IV, see admin instructions, Efraín Dey DO sodium chloride 0.9 % flush bag 25 mL, 25 mL, IV, see admin instructions, Efraín Dey DO dextrose 5 % in water 250 mL flush bag 25 mL, 25 mL, IV, see admin instructions, Efraín Dey DO acetaminophen (TYLENOL) tablet 650 mg, 650 mg, Oral, every 6 hours PRN, Efraín Dey DO, 650 mg at 12/10/24 1055 naloxone (NARCAN) 0.4 mg/mL injection 0.1 mg, 0.1 mg, IV, see admin instructions, Efraín Dey DO ondansetron (ZOFRAN) 4 mg/2 mL injection 4 mg, 4 mg, IV, every 6 hours PRN, Efraín Dey DO aluminum - magnesium - simethicone (MYLANTA) 200-200-20 mg/5 mL oral suspension 30 mL, 30 mL, Oral,every 2 hours PRN, Efraín Dey DO melatonin tablet 3 mg, 3 mg, Oral, at bedtime PRN, Efraín Dey DO guaiFENesin (ROBITUSSIN) 100 mg/5 mL oral solution 200 mg, 200 mg, Oral, every 4 hours PRN, Efraín Dey DO [COMPLETED] methylPREDNISolone sodium succinate (SOLU-Medrol) 40 mg in sterile water 1 mL injection, 40 mg, IV, every 8 hours, Efraín Dey DO, 40 mg at 12/10/24 2218 predniSONE (DELTASONE) tablet 40 mg, 40 mg, Oral, daily WITH breakfast, Efraín Dey DO, 40 mg at 12/11/24 0821 dextrose 5 % - sodium chloride 0.9 % infusion, , IV, see admin instructions, Efraín Dey DO dextrose 50% (D50) syringe 12.5 Gram, 12.5 Gram, IV, see admin instructions, Efraín Dey DO dextrose 50% (D50) syringe 25 Gram, 25 Gram, IV, see admin instructions, Efraín Dey DO glucagon HCL 1 mg/mL injection 1 mg, 1 mg, IM, see admin instructions, Efraín Dey DO PLAN Assess for vascular access-PIV x2 Addendum: [facility] arrival to [facility] room, Vanessa's nurse states she only needs one IV. Nupur Rossi, MARICARMEN * Lm Zimmerman MD - 12/11/2024 7:48 AM CDT CARDIOLOGY CONSULTATION [place], [place] Requesting Physician: Otis Chen MD Primary Manager Home Improvement: Dr Raúl Rod Chief Complaint: Chest Pain Date of Admission: 12/09/2024 Today's Date: 12/11/2024 History: Le Diaz is a 59 y.o. female (1965) who presents with worsening shortness of breath and COPD exacerbation. We have been asked to see her for chest pain which is substernal along with arm and back pain and constant for several days without any radiation elsewhere or exacerbation with breathing, coughing or walking. EKG shows sinus rhythm, old inferior infarct. Troponin is 20, 23 and 14 with a BNP of 201. Chest x-ray shows possible infiltrate. She reports 5 pound weight gain but deniesany edema. She has had shortness of breath without cough or wheezing. She denies palpitations but has had falls and uses a walker. She has had multiple admissions and ER visits for COPD exacerbation and has chronic chest pain withrepeated cardiac evaluation. She has history of CAD having had PCI in 2015 and 2018 with subsequentangiogram showing nonobstructive CAD. Last angiogram was February 2024 with a PET stress test September 2024 and an echo in October 2024. She lives with friends and is on home oxygen at 3 L but does not smoke anymore. She reports compliance with medications and is on multiple cardiac medications. She also has history of hypertension, dyslipidemia, pulmonary embolism with chronic anticoagulation, paroxysmal atrial tachycardia or flutter, heart failure with variable EF. Past Medical History: Diagnosis Date Anxiety Arthritis [...] smear Hyperlipidemia Ischemic cardiomyopathy Lower extremity edema CT (myocardial infarction) (CMS/HCC) 2015 Neuropathy NSTEMI (non-ST [...] ESOPHAGOGASTRODUODENOSCOPY performed by Mikey Moon MD at [facility] MAIN OR HX MASTECTOMY Right no lymph node removal HX PTCA stents (x3 in 2015, x2 in 2018) HX SPINAL SURGERY 2004 C4-5 fusion at [place], [place] HX SPLENECTOMY HX SURGICAL OTHER 1984 vaginal reconstruction HX TONSILLECTOMY HX VAGINA RECONSTRUCTION 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 INSERT MIDLINE IV 10/31/2024 INSERT MIDLINE IV 12/10/2024 OR CATH PLMT L HRT & ARTS W/NJX & ANGIO IMG S&I N/A 03/21/2024 Left heart cath performed by Kyler Helm MD at [facility] INVASIVE CARDIOLOGY OR CATH PLMT L HRT & ARTS W/NJX & ANGIO IMG S&I N/A 03/21/2024 Left Ventriculogram performed by Kyler Helm MD at [facility] INVASIVE CARDIOLOGY OR COLONOSCOPY FLX DX W/COLLJ SPEC WHEN PFRMD 01/23/2011 COLONOSCOPY performed by MACK BISWAS at [facility] ENDOSCOPY OR COLONOSCOPY FLX DX W/COLLJ SPEC WHEN PFRMD 09/19/2010 COLONOSCOPY performed by MACK BISWAS at [facility] ENDOSCOPY OR CORRECTION HAMMERTOE Left 07/20/2024 TOE(S) ARTHROPLASTY performed by Tereso Gil, DPM at [facility] MAIN OR OR EXPL PENETRATING WOUND SPX ABDOMEN/FLANK/BACK N/A 05/30/2023 LAPAROTOMY EXPLORATORY performed by Jose Cruz Montero DO at [facility] MAIN OR OR INJ SUBSTITUTE PARS PLANA/LIMBL W/WO ASPIR SPX Right 03/30/2024 EYE AIR FLUID GAS EXCHANGE performed by Eduardo Craven MD at [facility] SURGERY [place] [employer] RPR RPTD SPLEEN SPLENORRHAPHY W/WO PRTL SPLENECT N/A 05/30/2023 SPLENECTOMY performed by Jose Cruz Montero DO at [facility] MAIN OR OR VITRECTOMY [facility] PARS PLNA FOCAL ENDOLASER PC Right 03/30/2024 PARS PLANA VITRECTOMY WITH LASER performed by Eduardo Craven MD at [facility] SURGERY [facility] Medications Prior to Admission Medication Sig Dispense Refill Last Dose/Taking warfarin (COUMADIN) 10 mg tablet Take 1 Tablet (10 mg) by mouth late in the day for 14 days. 14 Tablet 0 sertraline (ZOLOFT) 50 mg tablet Take 50 mg by mouth daily. rOPINIRole (REQUIP) 0.5 mg tablet Take 0.5 mg by mouth daily at bedtime. amitriptyline (ELAVIL) 25 mg tablet Take 25 mg by mouth daily. lidocaine (LIDODERM) 5 % Adhesive Patch, Medicated Apply 1 Patch to affected area every 24 hours. 30 Patch 0 benzonatate (TESSALON) 100 mg capsule Take 1 Capsule (100 mg) by mouth every 4 hours as needed for Cough. 60 Capsule 1 zinc OXIDE-cod liver oil (DESITIN) 40 % Paste Apply to affected area see administration instructions. 57 Gram 0 acetaminophen (TYLENOL) 325 mg tablet Take 2 Tablets (650 mg) by mouth every 6 hours as needed for Pain, Mild / Temperature (.). Lantus Solostar U-100 Insulin 100 unit/mL (3 mL) solution for injection Inject 40 Units by subcutaneous injection daily at bedtime. 15 mL 1 methocarbamoL (ROBAXIN) 500 mg tablet Take 1 Tablet (500 mg) by mouth every 6 hours as needed for Spasm. 20 Tablet 0 budesonide 160 mcg-glycopyr 9 mcg-formot 4.8 mcg/actuation HFA inhaler Take 2 Puffs by inhalation 2times daily. 60 Each 1 ranolazine ER (RANEXA) 500 mg Extended Release 12 hour tablet Take 1 Tablet (500 mg) by mouth every12 hours. 60 Tablet 1 furosemide (LASIX) 80 mg tablet Take 1 Tablet (80 mg) by mouth 2 times daily. 60 Tablet 3 HYDROcodone-acetaminophen (NORCO) 7.5-325 mg Tablet Take 1 Tablet by mouth every 8 hours as needed for Pain, Moderate or Pain, Severe. empagliflozin (JARDIANCE) 10 mg tablet Take 1 Tablet (10 mg) by mouth daily in the morning. 30 Tablet 0 metoprolol succinate (TOPROL XL) 25 mg Extended Release 24 hour tablet Take 1 Tablet (25 mg) by mouth daily. 30 Tablet 0 sacubitriL-valsartan (ENTRESTO) 24-26 mg Tablet Take 1 Tablet by mouth 2 times daily. 60 Tablet 0 ipratropium-albuteroL (DUONEB) 0.5 mg-3 mg(2.5 mg base)/3 mL Solution for Nebulization Take 3 mL byinhalation every 4 hours as needed for Shortness of Breath. 300 mL 1 Nebulizer & Compressor For Neb Device every 4 hours as needed for Other (See Comment) (shortness of breath). 1 Each 0 levalbuterol (XOPENEX) 1.25 mg/3 mL Solution [...] of Need: 99 months 1 Each 0 Ventolin HFA 90 mcg/actuation inhaler Take 2 Puffs by inhalation every 6 hours as needed. isosorbide mononitrate (IMDUR) 30 mg Extended Release 24 hour tablet TAKE 1 TABLET BY MOUTH EVERY DAY 30 Tablet 1 atorvastatin (LIPITOR) 40 mg tablet Take 40 [...] as needed for Anxiety. 20 Tablet 0 fluorouraciL (EFUDEX) 5 % Cream portable oxygen Face to Face completed within 30 days: yes Length of Need: 99 months By: Nasal Cannula Continuously at 3 L/min. 1 Each 0 naloxone (NARCAN) 4 mg/spray [place], Non-Aerosol EMERGENCY USE ONLY: Administer 1 spray [...] Use Topics Alcohol use: No Review of Systems Constitutional: negative for fevers, chills, sweats, anorexia, weight loss Musculoskeletal: negative for hot, swollen joints Skin: negative for rashes Eyes: negative for visual loss, diplopia Ears, nose, throat: negative for hearing loss, tinnitus, sinus pain, sore throat Endocrine: negative for polyuria, polydipsia, thyroid disease Respiratory: negative for productive cough, wheezing, hemoptysis Gastrointestinal: negative for nausea, vomiting, diarrhea, melena, hematochezia, hematemesis, abdominal pain Genitourinary: negative for dysuria, hematuria, frequency Hematologic: negative for anemia, bleeding Neurological: negative for unilateral motor or sensory loss, dementia Behavioral/Psych: positive for depression,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 BEDTIME, Efraín Dey, DO, 40 mg at 12/10/24 0157 furosemide (LASIX) tablet 80 mg, 80 mg, Oral, BID, Efraín Dey, DO, 80 mg at 12/10/24938 isosorbide mononitrate (IMDUR) SR 24 hour tablet 30 mg, 30 mg, Oral, daily, Efraín Dey DO, 30 mg at 12/10/24938 metoprolol succinate (TOPROL XL) SR 24 hour tablet 25 mg, 25 mg, Oral, daily, Efraín Dey, , 25 mg at 12/10/24938 sacubitriL-valsartan (ENTRESTO) 24-26 mg tablet 1 Tablet, 1 Tablet, Oral, BID, Efraín Dey DO, 1 Tablet at 12/10/24938 sertraline (ZOLOFT) tablet 50 mg, 50 mg, Oral, daily, Efraín Dey, DO, 50 mg at 12/10/24938 OLANZapine (ZyPREXA) tablet 10 mg, 10 mg, Oral, daily BEDTIME, Efraín Dey DO, 10 mg at 12/10/24 0157 warfarin (COUMADIN) tablet 10 mg, 10 mg, Oral, daily LATE, Efraín Dey, cefePIME (MAXIPIME) 2,000 mg in sodium chloride 0.9% 50 mL IVPB (MBP), 2,000 mg, IV, every 12 hours(2 times daily), Efraín Dey DO, Stopped at 12/10/24 1026 ipratropium-albuteroL (DUONEB) 0.5 mg-3 mg(2.5 mg base)/3 mL inhalation solution 3 mL, 3 mL, Inhalation, resp, every 6 hours PRN AND [DISCONTINUED] albuterol (PROVENTIL,VENTOLIN) 2.5 mg /3 mL (0.083 %) inhalation solution 2.5 mg, 2.5 mg, Inhalation, resp, every 6 hours PRN, Efraín Dey DO [COMPLETED] insulin lispro (HumaLOG,ADMELOG) injection 8 Units, 8 Units, subCUT, ONE time only, Efraín Dey DO, 8 Units at 12/10/24 0533 insulin glargine-yfgn injection 40 Units, 40 Units, subCUT, daily BEDTIME, Efraín Dey DO [COMPLETED] insulin glargine-yfgn injection 10 Units, 10 Units, subCUT, ONE time only, Efraín Dey DO, 10 Units at 12/10/24 0609 morphine (MS IR) tablet 15 mg, 15 mg, Oral, every 6 hours PRN, Otis Chen MD, 15 mg at 12/10/24 0936 [COMPLETED] insulin glargine-yfgn injection 5 Units, 5 Units, subCUT, ONE time only, Otis Chen MD, 5 Units at 12/10/24 0942 [COMPLETED] insulin lispro (HumaLOG,ADMELOG) injection 20 Units, 20 Units, subCUT, ONE time only, Otis Chen MD, 20 Units at 12/10/24 0944 magnesium SULFATE in water 2 gram/50 mL (4 %) IVPB 2 Gram, 2 Gram, IV, ONE time only, Otis Chen MD, Last Rate: 25 mL/hr at 12/10/24 1103, 2 Gram at 12/10/24 1103 sodium PHOSPHATE 30 mmol in sodium chloride 0.9 % 260 mL IVPB, 30 mmol, IV, ONE time only, Otis Chen MD, Last Rate: 49.2 mL/hr at 12/10/24 1059, 30 mmol at 12/10/24 1059 [COMPLETED] morphine 4 mg/mL injection 4 mg, 4 mg, IV, ONE time only, Mikey Rudolph MD, 4 mg at 12/09/24 1906 [COMPLETED] ondansetron (ZOFRAN) 4 mg/2 mL injection 4 mg, 4 mg, IV, ONE time only, Mikey Rudolph MD, 4 mg at 12/09/24 1905 [COMPLETED] acetaminophen (OFIRMEV) 10 mg/mL injection 1,000 mg, 1,000 mg, IV, ONE time only, Mikey Rudolph MD, Stopped at 12/09/24 2316 [COMPLETED] methylPREDNISolone sodium succinate (SOLU-Medrol) 125 mg in sterile water 2 mL injection, 125 mg, IV, ONE time only, Mikey Rudolph MD, 125 mg at 12/09/24 214 [COMPLETED] morphine 4 mg/mL injection 4 mg, 4 mg, IV, ONE time only, Mikey Rudolph MD, 4 mg at 12/09/242142 [COMPLETED] ipratropium-albuteroL (DUONEB) 0.5 mg-3 mg(2.5 mg base)/3 mL inhalation solution 3 mL, 3 mL, Inhalation, resp, one time only, Mikey Rudolph MD, 3 mL at 12/09/24 2218 [COMPLETED] cefTRIAXone (ROCEPHIN) 2,000 mg in sodium chloride 0.9% 50 mL IVPB (MBP), 2,000 mg, IV,ONE time only, Mikey Rudolph MD, Stopped at 12/09/24 2326 [COMPLETED] doxycycline hyclate (VIBRAMYCIN) 100 mg in sodium chloride 0.9% 100 mL IVPB (MBP), 100 mg, IV, ONE time only, Mikey Rudolph MD, Stopped at 12/10/24 0300 [COMPLETED] iopamidoL (ISOVUE-300) 61% injection (drawn from multi-use bulk pack) 85 mL, 85 mL, IV,intra-proc ONE time, Mikey Rudolph MD, 85 mL at 12/09/24 2234 sodium chloride flush injection 10 mL, 10 mL, IV, every 12 hours (2 times daily), Efraín Dey DO, 10 mL at 12/10/24 0945 sodium chloride flush injection 10 mL, 10 mL, IV, see admin instructions, Efraín Dey DO sodium chloride 0.9 % flush bag 25 mL, 25 mL, IV, see admin instructions, Efraín Dey DO dextrose 5 % in water 250 mL flush bag 25 mL, 25 mL, IV, see admin instructions, Efraín Dey DO acetaminophen (TYLENOL) tablet 650 mg, 650 mg, Oral, every 6 hours PRN, Efraín Dey DO, 650 mg at 12/10/24 1055 naloxone (NARCAN) 0.4 mg/mL injection 0.1 mg, 0.1 mg, IV, see admin instructions, Efraín Dey DO ondansetron (ZOFRAN) 4 mg/2 mL injection 4 mg, 4 mg, IV, every 6 hours PRN, Efraín Dey DO aluminum - magnesium - simethicone (MYLANTA) 200-200-20 mg/5 mL oral suspension 30 mL, 30 mL, Oral,every 2 hours PRN, Efraín Dey DO melatonin tablet 3 mg, 3 mg, Oral, at bedtime PRN, Efraín Dey DO guaiFENesin (ROBITUSSIN) 100 mg/5 mL oral solution 200 mg, 200 mg, Oral, every 4 hours PRN, Efraín Dey DO enoxaparin (LOVENOX) injection 40 mg, 40 mg, subCUT, every 24 hours (daily), Efraín Dey DO,40 mg at 12/10/24 0157 methylPREDNISolone sodium succinate (SOLU-Medrol) 40 mg in sterile water 1 mL injection, 40 mg, IV,every 8 hours, Efraín Dey DO, 40 mg at 12/10/24 0519 predniSONE (DELTASONE) tablet 40 mg, 40 mg, Oral, daily WITH breakfast, Efraín Dey DO, 40 mg at 12/10/24 0939 insulin lispro (HumaLOG,ADMELOG) injection 0-6 Units, 0-6 Units, subCUT, TID WITH meals, Efraín Dey DO, 6 Units at 12/10/24 0943 insulin lispro (HumaLOG,ADMELOG) injection 0-3 Units, 0-3 Units, subCUT, daily BEDTIME, Efrían Dey DO dextrose 5 % - sodium chloride 0.9 % infusion, , IV, see admin instructions, Efraín Dey DO dextrose 50% (D50) syringe 12.5 Gram, 12.5 Gram, IV, see admin instructions, Efraín Dey DO dextrose 50% (D50) syringe 25 Gram, 25 Gram, IV, see admin instructions, Efraín Dey DO glucagon HCL 1 mg/mL injection 1 mg, 1 mg, IM, see admin instructions, Efraín Dey DO [DISCONTINUED] aspirin (CARTER CHEWABLE) chewable tablet 324 mg, 324 mg, Oral, ONE time only, Mikey Rudolph MD ipratropium-albuteroL (DUONEB) 0.5 mg-3 mg(2.5 mg base)/3 mL inhalation solution 3 mL, 3 mL, Inhalation, resp, every 6 hours PRN AND [DISCONTINUED] albuterol (PROVENTIL,VENTOLIN) 2.5 mg /3 mL (0.083 %) inhalation solution 2.5 mg, 2.5 mg, Inhalation, resp, every 6 hours PRN, Efraín Dey DO [DISCONTINUED] cefePIME (MAXIPIME) 2,000 mg in sodium chloride 0.9% 50 mL IVPB (MBP), 2,000 mg, IV,every 12 hours (2 times daily), Efraín Dey DO PLAN Assess for PIV placement. Addendum: Assessed left forearm for PIV placement. Vessels measure 26 G at this time. Left cephalicvessel stops compressing midway up the arm. Left brachial is not compressing at this time. Left basilic is partially compressing at this time. Discussed with nurse the results of visit, nurse reportsthat at this time the current IV is patent, intact, and infusing well. Discussed potential midline with primary nurse. Advised that when patient transfers back to the bed it could potentially change the view of the basilic vessel and to contact this IV team nurse when patient is ready for next lookor a midline order is obtained. Total time spent 30 minutes. Tresa Poe RN documented in this encounter ED Notes * Karen Viramontes RN - 12/09/2024 11:59 PM CDT Report called to 4B RN. AI handoff sent. Transport requested * Rico Wade RN - 12/09/2024 11:01 PM CDT IV started and medication provided per MAR * Rico Wade RN - 12/09/2024 10:26 PM CDT Patient in CT * Rico Wade RN - 12/09/2024 10:07 PM CDT Rounding complete, patient asleep in bed * Karen Viramontes RN - 12/09/2024 9:48 PM CDT At bedside responding to pt call light. Pt requesting pain medication. Meds administered per MAY. No acute distress noted. Pt denies other needs at this time. Pt resting with call light in reach. * Mikey Rudolph MD - 12/09/2024 5:37 PM CDT HISTORY OF PRESENT ILLNESS 59-year-old Female with Acute Respiratory Distress Chief Complaint: Shortness of breath and chest pain History of Present Illness: Patient is a 59-year-old female with complex medical history including COPD, pulmonary embolism, and CHF who presents to the emergency department with acute onset of shortness of breath and chest pain. Symptoms began approximately 2 hours prior to arrival. Patient reports that she was planning to take a nap when she developed severe shortness of breath and chest pain described as my belly's sitting on my chest. She denies wheezing but endorses feeling significantly out of breath. She reports abdominal swelling but denies lower extremity edema. Patient states she has experienced shortness ofbreath in the past due to her COPD but not this bad. She denies prior intubation but has requiredBiPAP in the past. Patient reports taking all of her regular medications today. Recent echocardiogram from November 02 showed mildly reduced global systolic function with EF 45-50%. Baseline hemoglobinis 11.6 and baseline GFR is greater than 60. Review of Systems: Constitutional: Acute respiratory distress. Respiratory: Positive for shortness of breath, negative for wheezing. Cardiovascular: Positive for chest pain, negative for lower extremity edema. Gastrointestinal: Positive for abdominal distention. Neurological: Alert and oriented, able to communicate despite respiratory distress. All other systems: Deferred due to acute presentation. Medications: Patient reports taking all regular medications today. Complete medication list not specified in heel slugger. Allergies: Not specified in heel slugger. Past Medical History: 1. Chronic Obstructive Pulmonary Disease (COPD) 2. Pulmonary Embolism 3. Congestive Heart Failure (CHF) 4. Cardiac arrhythmia requiring monitoring 5. Prior myocardial infarction (old inferior wall CT per EKG findings) 6. Mildly reduced global systolic function (EF 45-50% per recent echocardiogram) Past Surgical History: Not specified in heel slugger. Social History: Not specified in heel slugger. Family History: Not specified in heel slugger. PAST MEDICAL HISTORY REVIEWED MEDICAL: Patient has a past medical history of Anxiety, Arthritis, Arthropathy, unspecified, site unspecified, Atrial flutter ([facility]), Bipolar affective disorder ([facility]), Breast cancer ([facility]) (2001), Breast mass (08/22/2010), Cervical neck pain with evidence of disc disease, Chronic hepatic failure ([facility] /[facility]), Congenital absence of uterus, Congenital absence of vagina, Congenital anomaly, Congestive heart failure ([facility]), Coronary artery disease, Deep vein thrombosis (DVT) ([facility]) (2023), Depression (08/22/2010), Diabetes mellitus ([facility]) (2023), Difficult intravenous access, Dyspnea (08/15/2024), Dyspnea on exertion, Emphysema of lung ([facility]), GERD (gastroesophageal reflux disease), H/O heart artery stent, H/O mastectomy, right, 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), Hereditary hemochromatosis, abnormal cervical Pap smear, Hyperlipidemia, Ischemic cardiomyopathy, Lower extremity edema, CT (myocardial infarction) (CMS/HCC) (2015), Neuropathy, NSTEMI (non-ST elevated myocardial infarction) (CMS/HCC) (06/06/2023), NSTEMI (non-ST elevated myocardial infarction) ([facility]/HCC), Paroxysmal A-fib ([facility]), Paroxysmal atrial tachycardia, Pneumonia due to COVID-19 virus, Polycythemia, 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 SURGICAL: Patient has a past surgical [...] n-acetaminophen PHYSICAL EXAM INITIAL VS BP: (!) 133/100 (12/09/241750), Heart Rate: 87 bpm (12/09/241750), Resp: 22 (12/09/241750), Pulse: 87 (12/09/241750), Temp: 98.3 ??F (36.8 ??C) (12/09/241750), Temp src: Oral (12/09/241750), SpO2: 97 % (12/09/241750), Height: 5' 4 (162.6 cm) (12/09/241750), Weight: 96.2 kg (212 lb) (12/09/241750), BMI (Calculated): (!) 36.39 (12/09/241750) No LMP recorded. 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 Physical Exam Constitutional: Comments: Vital Signs: Patient noted to be tachypneic with tachycardia (heart rate 110 per EKG). Physical Exam: General: Patient is awake, alert, conversant, and interactive. In moderate respiratory distress. HEENT: Not documented. Respiratory: Tachypneic with accessory muscle use. Able to speak in sentences with difficulty. Decreased air movement. No audible wheezing or rales. Cardiovascular: Heart rhythm regular, rate elevated. Abdomen: Nontender, noted distention per patient report. Extremities: No asymmetric lower extremity edema. Neurologic: Normal mental status. DIAGNOSTICS LAB: CBC WITH DIFFERENTIAL - Abnormal Result Value WBC 7.1 NRBCS 1 (*) RBC 3.91 (*) HEMOGLOBIN 11.6 (*) HEMATOCRIT 38.2 MCV 97.7 MCH 29.7 MCHC 30.4 PLATELETS 178 MPV 11.6 RDW 18.3 (*) RDW-STDEV 65.1 (*) NEUTROPHILS 51 LYMPHOCYTES 31 MONOCYTES 15 (*) EOSINOPHILS 1 BASOPHILS 0 IMMATURE GRANULOCYTES 1 NEUTROPHIL ABSOLUTE 3.66 LYMPHOCYTE ABSOLUTE 2.23 MONOCYTE ABSOLUTE 1.10 (*) EOSINOPHIL ABSOLUTE 0.05 BASOPHILS ABSOLUTE 0.03 IMMATURE GRANULOCYTES ABSOLUTE 0.06 SMEAR REVIEWED: NA - Not Applicable COMPREHENSIVE METABOLIC PANEL - Abnormal SODIUM 137 POTASSIUM 4.0 CHLORIDE 100 CO2 21 (*) CALCIUM 9.5 BUN 12 CREATININE 0.53 GLUCOSE 296 (*) TOTAL PROTEIN 6.9 ALBUMIN 3.5 BILIRUBIN TOTAL 0.2 ALKALINE PHOSPHATASE 144 (*) AST 21 ALT 25 GFR >60 ANION GAP 16 TROPONIN BASELINE, 5TH GEN - Abnormal TROPONIN T, BASELINE 5TH GEN 20 (*) BRAIN NATRIURETIC PEPTIDE, BNP OR PROBNP - Abnormal PROBNP, N TERMINAL 201 (*) D-DIMER - Abnormal D-DIMER QUANT 0.57 (*) BLOOD GAS VENOUS - Abnormal PH BLOOD POC 7.34 PCO2 POC 50 PO2 POC 46 (*) HCO3 (CALC) POC 27 HEMOGLOBIN POC 12.1 BASE EXCESS POC 1 O2 SATURATION POC 77 (*) SODIUM POC 138 POTASSIUM POC 3.8 HEMATOCRIT POC 36 (*) PH TEMP CORRECT 7.34 PCO2 TEMP CORRECT 50 PO2 TEMP CORRECT 46 (*) SPECIMEN SOURCE, GASES POC Venous CALCIUM IONIZED POC 5.0 TCO2 (CALC) POC 29 (*) [facility] SITE POC No Charge VENT MODE POC BiPAP PATIENT'S TEMPERATURE POC 37.0 PROTIME-INR - Normal PROTIME 14.4 INR 1.1 MAGNESIUM LEVEL - Normal MAGNESIUM 1.7 BLOOD CULTURE BLOOD CULTURE BLOOD CULTURE BLOOD CULTURE TROPONIN 2 HR, 5TH GEN URINALYSIS WITH REFLEX MICROSCOPIC BLOOD GAS VENOUS TROPONIN 6 HR, 5TH GEN LACTIC ACID RADIOLOGY: XR CHEST PA OR AP 1 VW Radiologist Impression IMPRESSION: Subtle streaky airspace disease in left lung base is nonspecific and could reflect atelectasis or an acute infiltrate. EKG: PROCEDURES Procedures MEDICAL DECISION MAKING AND PLAN OF CARE Medical Decision Making Medical Decision Making: Summary Statement: 59-year-old female with history of COPD, pulmonary embolism, and CHF presenting with acute respiratory distress and chest pain requiring BiPAP support. Initial workup reveals sinustachycardia, possible left lung infiltrate, hyperglycemia, and elevated troponin. Problem List: 1. Acute respiratory failure with hypercapnia 2. Chest pain 3. ?COPD exacerbation 4. Possible left lung infiltrate 5. Hyperglycemia Differential Diagnosis: ?COPD exacerbation, acute coronary syndrome, myocardial infarction, congestive heart failure exacerbation, pulmonary embolism, ?pneumonia, anxiety. ED Course: Patient was placed on BiPAP for respiratory support. Received bronchodilator therapy including DuoNeb (albuterol and Atrovent) and Solu- Medrol. Pain managed with morphine, Zofran, and IV acetaminophen. Empiric antibiotics (Rocephin and azithromycin) administered for possible ?pneumonia. C omprehensive labs, EKG, chest X-ray, and blood gas obtained. Patient showed improvement in respiratory effort and was deemed stable for hospital admission. Lab Results: I independently interpreted all laboratory studies obtained during this visit and made comparison to prior results as available and relevant to this visit. CBC: - Hemoglobin: 11.6 g/dL (baseline) - WBC: 7.1 K/uL Chemistry: - Glucose: 296 mg/dL (elevated) - Sodium: 144 mEq/L - Bicarbonate: 21 mEq/L - Other electrolytes: Within normal limits Cardiac markers: - Troponin: 20 ng/L (elevated) - BNP: 201 pg/mL (elevated) Coagulation studies: - INR: 1.1 - D-dimer: 0.57 ng/mL (age-adjusted normal) Venous blood gas (on BiPAP): - pH: 7.34 - pCO2: 50 mmHg (elevated) - pO2: 46 mmHg (decreased) Imaging and Other Relevant Results: I independently interpreted all imaging studies obtained during this visit and made comparison to prior studies as available and relevant to this visit. Chest X-ray: Subtle streaky airspace disease in left lung base, nonspecific. Could reflect atelectasis or infiltrate. EKG: EKG was independently interpreted by me. Comparison made with prior EKG as available and as relevant to current visit. Current EKG findings: - Sinus tachycardia, rate 110 bpm - OR interval: 136 ms - QRS: 84 ms - QTc: 479 ms (prolonged) - Inferior Q waves suggestive of old inferior wall myocardial infarction - No ST segment elevation Comparison to EKG from 12/01/2024: Similar to today's tracing with no significant changes noted. Assessment and Plan: 1. Acute Respiratory Failure with Hypercapnia: - Likely multifactorial etiology including ?COPD exacerbation and possible ? pneumonia - Continue BiPAP support with close monitoring of respiratory status - Continue bronchodilator therapy with albuterol/Atrovent - Continue systemic steroids with Solu-Medrol - Monitor blood gases to assess ventilation and oxygenation 2. ?COPD Exacerbation: - Continue bronchodilator therapy - Continue systemic steroids 3. Chest Pain: - Elevated troponin concerning for possible non-ST elevation myocardial infarction - Continue cardiac monitoring - Serial troponins to trend - Consider cardiology consultation - Pain control with IV acetaminophen and cautious use of opioids 4. Possible Left Lung Infiltrate: - Continue empiric antibiotic coverage with Rocephin and azithromycin - Monitor for signs of infection including fever, leukocytosis 5. Hyperglycemia: - Monitor blood glucose levels - Initiate insulin coverage as needed - Evaluate for underlying causes including steroid effect vs. undiagnosed diabetes Disposition: Admit to inpatient service under hospitalist care. Condition stable at time of transfer. Patient is being admitted to the hospital under the care of the hospitalist service. The following instructions are for inpatient care: 1. Continue BiPAP support as needed for respiratory distress 2. Continue bronchodilator therapy and systemic steroids for COPD exacerbation 3. Continue antibiotics for possible pneumonia 4. Monitor cardiac status with serial troponins and continuous telemetry 5. Pain management with IV acetaminophen and cautious use of opioids 6. Blood glucose monitoring and insulin coverage as needed 7. Pulmonary and cardiology consultations as appropriate Additional Notes: Note created based on ED encounter heel slugger for a 59-year-old female with acute respiratory distress and chest pain. Patient has complex cardiopulmonary history including COPD, pulmonary embolism, and CHF. Amount and/or Complexity of Data Reviewed Independent Historian: friend and EMS Labs: ordered. Decision-making details documented in ED Course. Radiology: ordered and independent interpretation performed. Decision-making details documented in ED Course. ECG/medicine tests: ordered. Risk OTC drugs. Prescription drug management. Decision regarding hospitalization. Risk Details: Critical care time 60 minutes spent in initial eval, record review, ordering and evaluating results of testing, ordering and evaluating response to treatment, consultation, documentation System at risk respiratory Critical Care Total time providing critical care: minutes (60) Clinical Scoring & Consults Medications Administered During the ED Stay from 12/09/2024 1737 to 12/09/2024 2307 Date/Time Order Dose Route Action 12/09/2024 1906 CDT morphine 4 mg/mL injection 4 mg 4 mg IV Given 12/09/2024 190 CDT ondansetron (ZOFRAN) 4 mg/2 mL injection 4 mg 4 mg IV Given 12/09/2024 2301 CDT acetaminophen (OFIRMEV) 10 mg/mL injection 1,000 mg 1,000 mg IV New Bag 12/09/2024 214 CDT methylPREDNISolone sodium succinate (SOLU-Medrol) 125 mg in sterile water 2 mL injection 125 mg IV Given 12/09/20242142 CDT morphine 4 mg/mL injection 4 mg 4 mg IV Given 12/09/2024 2218 CDT ipratropium-albuteroL (DUONEB) 0.5 mg-3 mg(2.5 mg base)/3 mL inhalation solution 3 mL 3 mL Inhalation Given 12/09/20242255 CDT cefTRIAXone (ROCEPHIN) 2,000 mg in sodium chloride 0.9% 50 mL IVPB (MBP) 2,000 mg IV New Bag 12/09/20242233 CDT iopamidoL (ISOVUE-300) 61% injection (drawn from multi-use bulk pack) 85 mL 85 mL IV Contrast Given . New Prescriptions for this Encounter LAST VS BP: (!) 149/68 (12/09/241999), Heart Rate: 96 bpm (12/09/242218), Resp: 20 (12/09/242218), Pulse: 100 (12/09/241999), Temp: 98.3 ??F (36.8 ??C) (12/09/241750), Temp src: Oral (12/09/241750), SpO2: 99 % (12/09/242218) CLINICAL IMPRESSION Diagnoses Diagnosis Comment Added By Time Added Acute respiratory failure with hypercapnia (CMS/HCC) [J96.02] Mikey Rudolph MD 12/09/2024 10:11 PM COPD with exacerbation (CMS/HCC) [J44.1] Mikey Rudolph MD 12/09/2024 10:11 PM Chest pain, unspecified type [R07.9] Mikey Rudolph MD 12/09/2024 10:11 PM Infiltrate of lung present on chest x-ray [R91.8] Mikey Rudolph MD 12/09/2024 10:11 PM DISPOSITION, EDUCATION AND MEDICATION RECONCILIATION Medications reconciled. See after visit summary for patient education on discharged patients. ED Disposition ED Disposition Admit Condition Stable User Mikey Rudolph MD Date/Time ThuDec 09, 2024 10:11 PM Comment -- ATTESTATION STATEMENTS Diagnoses Diagnosis Comment Added By Time Added Acute respiratory failure with hypercapnia (CMS/HCC) [J96.02] Mikey Rudolph MD 12/09/2024 10:11 PM COPD with exacerbation (CMS/HCC) [J44.1] Mikey Rudolph MD 12/09/2024 10:11 PM Chest pain, unspecified type [R07.9] Mikey Rudolph MD 12/09/2024 10:11 PM Infiltrate of lung present on chest x-ray [R91.8] Mikey Rudolph MD 12/09/2024 10:11 PM documented in this encounter Miscellaneous Notes * Care Plan - Adeline Vargas RN - 12/13/2024 10:30 AM CDT Problem: Discharge Planning Goal: Identify discharge needs upon admission and through discharge Description: Outcome: Progressing Exhibition Specialist Discharge Planning Pt discharging states Marcin will drive her home. Expected Discharge Date Dec 13, 2024 Plan Discharge To: Home with family assist (12/12/241412) Plan Discharge To - Alternate: Home or Self Care (12/12/241412) Family/Caregiver Assist Does the patient have family and/or a caregiver that is willing, able and available to assist if needed?: Yes (12/12/241412) Name and Relation: Marcin, friend (12/12/241412) Referrals Status: Follow-up on Referrals Sent: No (12/12/241412) Preferred Pharmacy: [id number] Patient / Family Communications: Patient/Family Communications: Plan Discharge To Update (12/12/241412) Discharge Plan Agreed Upon: Patient (12/12/241412) Resources Provided Transportation Plan: Has discharge transport been arranged?: No (12/12/241412) Follow Up Appointments Scheduled Adeline Vargas RN * Care Plan - Jordy Castillo Medication Care Manager - 12/13/2024 8:48 AM CDT Problem: Physical Mobility, Impaired Goal: Mobility goal: Improve ambulation by discharge Description: Patient will ambulate 150 feet on level surface, using rolling walker assistive device, with independent so patient can navigate discharge environment. Outcome: Progressing Flowsheets Taken 12/13/2024 0846 by Jordy Castillo, Medication Care Manager Tue: X Pain Rating: Rest: 0 Pain Rating: Activity: 0 Present Activity: up in room ambulating PT Current Discharge Recommendation: Home with supervision Taken 12/10/2024 1029 by Hanna Olsne, Physical Therapist Therapy Plan of Care: 5 PT Recommended DME: No new DME recommended [facility] Acute Physical Therapy Treatment 12/13/2024 Room: [address] [place] [address] Name: Le Diaz Age: 59 y.o. Date of : 1965 Insurance: Payor: MEDICAID / Plan: MEDICAID [place] / Product Type: Medicaid / Subjective Information Comments: Pt agrees to OOB mobility, short gait. Pain: Refer to Doc. Flowsheet for documented pain levels. Vitals Patient on 2 liters/min via nasal cannula On continuous monitor Functional Mobility/Treatment Functional Mobility: Rolling: Independent Scooting: Independent Supine to sit: Independent Sit to supine: Independent Sit to stand: Independent Bed to chair: Independent Pt transfers bed to BSC, able to toilet, cleanup independently. Gait Trainin x 20 feet with no device. supervision for O2 line. Deficits affecting function/Deviations noted: Pt is impulsive. Patient required verbal cues proper breathing techniques Functional exercise: Functional exercise: sit to stand x 2, with Independent Balance exercise: sitting: at EOB x 2 minutes: Independent [facility] Basic Mobility How much help from [...] 6. Climbing 3-5 steps with a railing? (Not attempted). 3 - A little (supervision to min assist) Total score 23/24 0-16 - indicates likely facility discharge 17-24 indicates likely community discharge * scores determined based on patient report, observation or professional expertise Assessment and Plan Functional Progress: Patient is progressing towards the goal(s) for gait tolerance, which is limited by increased work of breathing. Patient does require skilled PT. Specific focus for next treatment session: Increase gait distance as appropriate. Continue with plan of care as previously established until goals met or patient discharges from facility Recommendations Based on PT assessment of and/or progress with physical function, AM-PAC Basic Mobility score, and available home support, anticipated discharge disposition: Home with supervision (12/13/24 7401). Safety concerns if patient is without supervision/assistance. . * The final discharge location is determined through physician, case management, and patient/caregiver input along with insurance authorization of skilled services when appropriate PT Recommended DME: No new DME recommended (12/10/24 1029). Daily activity recommendations: Up with 1 assist, Ambulate to bathroom with staff, and Up in chair for meals Precautions Patient Precautions: Oxygen and Bleeding Bracing/Orthotics: none Weight Bearing: No Restrictions Education/Training Provided Additional education provided: functional mobility, safety, and O2 line management / avoid tripping. Learner, method of education, and response to learning listed in Education tab in Epic. Disposition At start of session, patient found lying in bed At end of session, patient left seated in chair, call light in reach, phone in reach, and staff notified of patient's location Consent to treatment given by: Patient and Nurse. Prior to PT session a thorough chart review was completed, including prior therapy notes, as applicable. Further treatment notes and therapeutic goals can be found in Care Plan Notes. If the patient discharges from the facility before another therapy visit, this shall serve as the therapy discharge summary. Thank you for this referral, Jordy Castillo Medication Care Manager * Care Plan - Adeline Vargas RN - 12/12/2024 2:13 PM CDT Problem: Discharge Planning Goal: Identify discharge needs upon admission and through discharge Description: Outcome: Progressing Exhibition Specialist Discharge Planning Awaiting PT/OT for safest DC recommendation. Expected Discharge Date Dec 13, 2024 Plan Discharge To: Home with family assist (12/12/241412) Plan Discharge To - Alternate: Home or Self Care (12/12/241412) Family/Caregiver Assist Does the patient have family and/or a caregiver that is willing, able and available to assist if needed?: Yes (12/12/241412) Name and Relation: Marcin, friend (12/12/241412) Referrals Status: Follow-up on Referrals Sent: No (12/12/241412) Preferred Pharmacy: [id number] [place], [place] - [address] [facility] [place] Patient / Family Communications: Patient/Family Communications: Plan Discharge To Update (12/12/241412) Discharge Plan Agreed Upon: Patient (12/12/241412) Resources Provided Transportation Plan: Has discharge transport been arranged?: No (12/12/241412) Follow Up Appointments Scheduled Adeline Vargas RN * Care Plan - Tresa Poe RN - 12/10/2024 3:43 PM CDT Problem: Infection, Risk/Actual (Adult) Goal: Infection, Risk/Actual: Infection Prevention/Resolution/Control Description: Patient will demonstrate the desired outcomes. Le 's midline IV will remain free from infection. Outcome: Progressing * Care Plan - Adeline Vargas RN - 12/10/2024 3:23 PM CDT Problem: Discharge Planning Goal: Identify discharge needs upon admission and through discharge Description: Outcome: Progressing Care Management Initial Assessment Initial Discharge Planning Assessment completed. Discussed Care Management's role and Discharge planning. Plan Discharge To: Home with family assist Plan Discharge To - Alternate: Home or Self Care Does the patient have family and/or a caregiver that is willing, able and available to assist if needed? Yes - Name/Relation:Marcin, keyon Comments: Pt would like to return home after this, with a medicaid hoe worker Patient Discharge Planning Goal: home with assistance Patient will potentially discharge to a SNF/NH? No Care Management visited with: patient via in person. Prior to admission, patient resides at: own home. Patient resides in a 1 story home with 6 stairs to enter. Patient's bedroom and bathroom are located on the same floor. Prior to admission, living arrangements: lives alone. 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 Yes other scooter, walker 3-4L O2 serviced by [facility] in the home/community: none Serviced by Receives hemodialysis? No Emergency contact(s): Extended Emergency Contact Information Primary Emergency Contact: EVELYN ENCINAS Mobile Relation: Mother Secondary Emergency Contact: Huang Burch Mobile Relation: Step Father Oscillograph Technician needed? No Prescription coverage: yes Preferred Pharmacy verified: [id number] - [place] [address] [place] Insurance coverage verified: Payor: MEDICAID / Plan: MEDICAID [place] / Product Type: Medicaid / Secondary Insurance:N/A Medicaid Status: no spend down Has VA Benefits: no Employment Status: not employed PCP verified as: Delta Wade MD Patient has had a stay at an acute care hospital in the last 30 days. Recent Falls?: Last Known Fall: Within the last month Plan for transportation at discharge: Marcin will transport the pt home Care Management contact information provided. Care Management will continue to follow and assist asneeded. * Treatment Plan - Lisa Dillard PHARMACIST - 12/10/2024 3:19 PM CDT MW ROYA Adult Heparin Anti-Xa Monitoring Protocol Sellf ORDERS ARE ENTERED ???PER PROTOCOL?? Nursing Orders: [...] heparin dose by 3 units/kg/hr 6 hours * Care Plan - Michael Roberts, CONTACT CENTER ASSOCIATE - 12/10/2024 4:05 AM CDT Images from the original note were not included. Respiratory Patient Care Assessment S- Patient states no respiratory distress at this time. eBlkys Diaz is a 59 y.o. female admitted for No admission diagnoses are documented for this encounter. on 12/09/2024 5:59 PM. Patient presents on a 4 liter nasal cannula. Patient does not want scheduled nebulizer treatments, she wants to call for one when needed. Patients BiPAP on standby at this time. Social History Tobacco Use Smoking status: Former Average packs/day: 1 pack/day for 43.0 years (43.0 ttl pk-yrs) Types: Cigarettes Start date: 07/21/2022 Smokeless tobacco: Never Vaping Use Vaping status: Never Used Substance Use Topics Alcohol use: No Drug use: No Prior to Admission medications Medication Sig Start Date End Date Taking? Authorizing Provider warfarin (COUMADIN) 10 mg tablet Take 1 Tablet (10 mg) by mouth late in the day for 14 days. 12/02/24 12/16/24 Matilde Nix MD sertraline (ZOLOFT) 50 mg tablet Take 50 mg by mouth daily. Provider, Historical rOPINIRole (REQUIP) 0.5 mg tablet Take 0.5 mg by mouth daily at bedtime. Provider, Historical amitriptyline (ELAVIL) 25 mg tablet Take 25 mg by mouth daily. Provider, Historical lidocaine (LIDODERM) 5 % Adhesive Patch, Medicated Apply 1 Patch to affected area every 24 hours. 11/16/24 12/16/24 Curly Loaiza DO benzonatate (TESSALON) 100 mg capsule Take 1 Capsule (100 mg) by mouth every 4 hours as needed for Cough. 11/10/24 Yaya Garcia MD zinc OXIDE-cod liver oil (DESITIN) 40 % Paste Apply to affected area see administration instructions. 11/07/24 Maida Yang MD acetaminophen (TYLENOL) 325 mg tablet Take 2 Tablets (650 mg) by mouth every 6 hours as needed for Pain, Mild / Temperature (.). 11/04/24 James Lee MD [place] Solostar U-100 Insulin 100 unit/mL (3 mL) [...] every12 hours. 10/29/24 12/28/24 Nani Borges MD furosemide (LASIX) 80 mg [...] Ryann Burk MD naloxone (NARCAN) 4 mg/spray [place], Non-Aerosol EMERGENCY USE ONLY: Administer 1 spray [...] MD Lab Results Component Value Date/Time WBC 7.1 12/09/2024 06:09 PM HGB 11.6 (L) 12/09/2024 06:09 PM HGBPOC 12.1 12/09/2024 07:48 PM HCT 38.2 12/09/2024 06:09 PM HCTPOC 36 (L) 12/09/2024 07:48 PM PLT 178 12/09/2024 06:09 PM MCV 97.7 12/09/2024 06:09 PM Lab Results Component Value Date/Time NA 137 12/09/2024 06:09 PM K 4.0 12/09/2024 06:09 PM CL 100 12/09/2024 06:09 PM CO2 21 (L) 12/09/2024 06:09 PM CA 9.5 12/09/2024 06:09 PM BUN 12 12/09/2024 06:09 PM CREAT 0.53 12/09/2024 06:09 PM GLUCOSE 296 (H) 12/09/2024 06:09 PM ANIONGAP 16 12/09/2024 06:09 PM BCRATIO SEE NOTE: 07/16/2023 10:52 AM Lab Results Component Value Date/Time TROPONIN 18 06/23/2023 11:20 AM Breath sounds reveal clear and diminished throughout. Last chest x-ray reveals IMPRESSION: Subtle streaky airspace disease in left lung base is nonspecific and could reflect atelectasis or an acute infiltrate. A- Treat possible bronchospasms. P- Patient educated on purpose and technique of therapy. Based on above, patient will be placed on Duoneb PRN. Will reassess patient status PRN. Michael Roberts RCP * Gen AI ED Handoff - GENERATIVE AI HANDOFF NOTE - 12/10/2024 12:05 AM CDT SITUATION: Patient ( ) is a 59-year-old female who has been in the ER for 6 hours. She came to the ER due to shortness of breath. The patient's most recent care team on record included: Rico Wade. BACKGROUND: This patient has allergies to Ketorolac Tromethamine, Prochlorperazine, Propoxyphene, Tramadol, Codeine, Propoxyphene N-acetaminophen. ASSESSMENT: Patient's most recent vitals recorded in flowsheets were as follows: BP: 130/69 T: 98.2 F RR: 22 SPO2: 96% HR: 98 WT: 212.0 LBS BMI: 36.39 Most recent Glucose Value: 296. Completed: 2024-12-09 19:11. Last recorded oxygen source was nasal cannula. Prev 45 Day Discharges: 12. Readmission detail: 2024-11-28 INPATIENT COPD exacerbation ([facility]);2024-11-27 EMERGENCY Dyspnea, unspecified type;2024-11-21 INPATIENT Centrilobular emphysema ([facility]);2024-11-18 EMERGENCY Multiple leg contusions, left, initial encounter;2024-11-13 INPATIENT COPD with exacerbation ([facility]);2024-11-12 EMERGENCY;2024-11-11 EMERGENCY Skin abrasion;2024-11-08 INPATIENT COPD with exacerbation ([facility]);2024-11-05 INPATIENT COPD exacerbation ([facility]);2024-10-31 INPATIENT Syncope. The patient presents with acute respiratory distress and chest pain, requiring BiPAP support. She has a history of COPD, pulmonary embolism, CHF, cardiac arrhythmia, prior myocardial infarction, and diabetes mellitus. The patient is experiencing hyperglycemia and elevated troponin levels, indicating possible non-ST elevation myocardial infarction. There is a possible left lung infiltrate and hypercapnia. The patient has a BMI of 36.39, indicating obesity. RECOMMENDATION: Continue BiPAP support for respiratory distress. Administer bronchodilator therapy with albuterol/Atrovent and systemic steroids with Solu-Medrol for COPD exacerbation. Continue empiric antibiotic coverage with Rocephin and azithromycin for possible pneumonia. Monitor cardiac status with serial troponins and continuous telemetry. Manage pain with IV acetaminophen and cautious use of opioids. Monitor blood glucose levels and initiate insulin coverage as needed. Consider cardiology consultation for elevated troponin and possible non-ST elevation myocardial infarction. Pulmonary consultation may be appropriate. Ensure continuous monitoring of respiratory status and blood gases to assess ventilation and oxygenation. *This summary was created by [employer]. The responses are meant to enhance, not replace normal workflow. Please contact the ED nurse for any additional information.* * ED Bed Hold Comment Note - Hanna García RN - 12/09/2024 5:59 PM CDT Bed: 02 Expected date: 12/09/24 Expected time: 5:45 PM Means of arrival: Comments: Triage documented in this encounter Plan of Treatment Upcoming Encounters Date Type Department Care Team (Late st Contact Info) Description 12/20/2024 2:00 PM CDT Office Visit [facility] Endocrinology [facility] [address] [place] [address] James Lee MD [address] [place], [place] [id number] Gricel Mcgovern PA [address] [place] [address] 01/12/2025 1:40 PM CDT Office Visit [facility] [address] [place] [address] Kath Tresa Pio, [facility] [address] [place] [address] Pending Results Name Type Priority Associated Diagnoses Date /Time BLOOD CULTURE Microbiology Stat 5 10:50 PM CDT BLOOD CULTURE Microbiology Stat 5 10:54 PM CDT BLOOD CULTURE Microbiology Stat 5 10:50 PM CDT BLOOD CULTURE Microbiology Stat 5 10:54 PM CDT Scheduled Orders Name Type Priority Associated Diagnoses Orde r Schedule BLOOD GAS VENOUS Lab Stat ONE TIME for 1 Occurrences starting 12/09/2024 until 12/09/2024 BLOOD CULTURE Microbiology Routine ONE TIME for 1 Occurrences starting 12/09/2024 until 12/09/2024 BLOOD CULTURE Microbiology Routine ONE TIME for 1 Occurrences starting 12/09/2024 until 12/09/2024 Scheduled Referrals Name Type Priority Associated Diagnoses Orde r Schedule AMB REFERRAL TO FAMILY PRACTICE Outpatient Referral Routine Acute respiratory failure with hypercapnia (CMS/HCC) Ordered: 12/13/2024 documented as of this encounter Goals Goal Patient Goal Type Associated Problems Recent Progress Patient-Stated? Author Heart Failure Goal Care Plan Heart Failure Problem No Latonya Anguiano LPN documented as of this encounter Procedures Procedure Name Priority Date/Time Associated Diagnosis Comments POC GLUCOSE Routine 12/13/2024 11:39 AM CDT HOME O2 EVAL (DESATURATION SCREEN) Routine 12/13/2024 9:40 AM CDT POC GLUCOSE Routine 12/13/2024 7:06 AM CDT BASIC METABOLIC PANEL Routine 12/13/2024 6:22 AM CDT POC GLUCOSE Routine 12/13/2024 4:59 AM CDT PROTIME-INR Routine 12/13/2024 1:21 AM CDT POC GLUCOSE Routine 12/13/2024 1:18 AM CDT POC GLUCOSE Routine 12/12/2024 9:36 PM CDT POC GLUCOSE Routine 12/12/2024 8:48 PM CDT DRUG SCREEN, URINE Routine 12/12/2024 6: 02 PM CDT EKG 12-LEAD Stat 12/12/2024 5:42 PM CDT POC GLUCOSE Routine 12/12/2024 5:[address] HEAD WO CONTRAST Routine 12/12/2024 3 :11 PM CDT ECHOCARDIOGRAM W/ CONTRAST AGENT Pending Discharge 12/12/2024 2:35 PM CDT BLOOD GAS VENOUS Routine 12/12/2024 1:38 PM CDT POC GLUCOSE Routine 12/12/2024 11:35 AM CDT POC GLUCOSE Routine 12/12/2024 7:16 AM CDT POC GLUCOSE Routine 12/12/2024 4:08 AM CDT UNFRACTIONATED HEPARIN ACTIVITY Timed Study 12/12/2024 3:21 AM CDT CBC WITH DIFFERENTIAL Routine 12/12/2024 3:21 AM CDT PROTIME-INR Routine 12/12/2024 3:21 AM CDT BASIC METABOLIC PANEL Routine 12/12/2024 3:21 AM CDT POC GLUCOSE Routine 12/12/2024 2:25 AM CDT POC GLUCOSE Routine 12/11/2024 11:45 PM CDT POC GLUCOSE Routine 12/11/2024 9:03 PM CDT UNFRACTIONATED HEPARIN ACTIVITY Timed Study 12/11/2024 9:00 PM CDT POC GLUCOSE Routine 12/11/2024 5:38 PM CDT UNFRACTIONATED HEPARIN ACTIVITY Timed Study 12/11/2024 1:08 PM CDT POC GLUCOSE Routine 12/11/2024 12:09 PM CDT POC GLUCOSE Routine 12/11/2024 11:08 AM CDT POC GLUCOSE Routine 12/11/2024 10:07 AM CDT POC GLUCOSE Routine 12/11/2024 9:07 AM CDT POC GLUCOSE Routine 12/11/2024 8:02 AM CDT POC GLUCOSE Routine 12/11/2024 7:05 AM CDT POC GLUCOSE Routine 12/11/2024 6:02 AM CDT UNFRACTIONATED HEPARIN ACTIVITY Timed Study 12/11/2024 5:44 AM CDT CBC WITH DIFFERENTIAL Routine 12/11/2024 5:44 AM CDT PROTIME-INR Routine 12/11/2024 5:44 AM CDT PHOSPHORUS Routine 12/11/2024 5:44 AM CDT MAGNESIUM LEVEL Routine 12/11/2024 5:44 AM CDT BASIC METABOLIC PANEL Routine 12/11/2024 5:44 AM CDT POC GLUCOSE Routine 12/11/2024 5:04 AM CDT POC GLUCOSE Routine 12/11/2024 4:07 AM CDT POC GLUCOSE Routine 12/11/2024 2:55 AM CDT POC GLUCOSE Routine 12/11/2024 2:38 AM CDT POC GLUCOSE Routine 12/11/2024 1:33 AM CDT POC GLUCOSE Routine 12/11/2024 12:20 AM CDT UNFRACTIONATED HEPARIN ACTIVITY Timed Study 12/10/2024 11:46 PM CDT POC GLUCOSE Routine 12/10/2024 10:31 PM CDT POC GLUCOSE Routine 12/10/2024 9:35 PM CDT POC GLUCOSE Routine 12/10/2024 8:33 PM CDT POC GLUCOSE Routine 12/10/2024 7:32 PM CDT POC GLUCOSE Routine 12/10/2024 6:26 PM CDT POC GLUCOSE Routine 12/10/2024 5:18 PM CDT POC GLUCOSE Routine 12/10/2024 4:00 PM CDT UNFRACTIONATED HEPARIN ACTIVITY Timed Study 12/10/2024 3:37 PM CDT PTT Routine 12/10/2024 3:37 PM CDT CBC WITHOUT DIFFERENTIAL Routine 12/10/2024 3:37 PM CDT POC GLUCOSE Routine 12/10/2024 11:31 AM CDT EKG 12-LEAD Stat 12/10/2024 8:58 AM CDT POC GLUCOSE Routine 12/10/2024 7:35 AM CDT POC GLUCOSE Routine 12/10/2024 5:15 AM CDT PROTIME-INR Routine 12/10/2024 4:11 AM CDT TROPONIN 6 HR, 5TH GEN Timed Study 12/10/2024 4:10 AM CDT CBC WITH DIFFERENTIAL Stat 12/10/2024 4:10 AM CDT PHOSPHORUS Stat 12/10/2024 4:10 AM CDT MAGNESIUM LEVEL Stat 12/10/2024 4:10 AM CDT COMPREHENSIVE METABOLIC PANEL Stat 12/10/2024 4:10 AM CDT POC GLUCOSE Routine 12/10/2024 1:57 AM CDT EXTRA TUBE (URINE [place]) Stat 12/10/2024 1:25 AM CDT URINALYSIS W/REFLEX MICROSCOPIC Stat 12/10/2024 1:25 AM CDT RESPIRATORY PATHOGEN PCR PANEL Stat 12/10/2024 12:34 AM CDT RT ASSESS AND TREAT Stat 12/09/2024 1 1:43 PM CDT TROPONIN 2 HR, 5TH GEN Timed Study 12/09/2024 10:54 PM CDT LACTIC ACID Stat 12/09/2024 10:54 PM CDT BLOOD CULTURE Stat 12/09/2024 10:54 PM CDT BLOOD CULTURE Stat 12/09/2024 10:50 PM CDT CTA CHEST W AND/OR WO CONTRAST Stat 12/09/2024 10:39 PM CDT PROTIME-INR Stat 12/09/2024 8:12 PM CDT D-DIMER Stat 12/09/2024 8:12 PM CDT BLOOD GAS VENOUS Stat 12/09/2024 7:48 PM CDT EKG 12-LEAD Stat 12/09/2024 6:58 PM CDT XR CHEST PA OR AP 1 VW Stat 12/09/2024 6:27 PM CDT TROPONIN BASELINE, 5TH GEN Stat 12/09/2024 6:09 PM CDT CBC WITH DIFFERENTIAL Stat 12/09/2024 6:09 PM CDT BRAIN NATRIURETIC PEPTIDE, BNP OR PROBNP Stat 12/09/2024 6:09 PM CDT MAGNESIUM LEVEL Stat 12/09/2024 6:09 PM CDT COMPREHENSIVE METABOLIC PANEL Stat 12/09/2024 6:09 PM CDT documented in this encounter Results * (ABNORMAL) POC GLUCOSE (12/13/2024 11:39 AM CDT) GLUCOSE POC 230(H) 74 - 99 mg/dL 12/13/2024 11:39 AM CDT [facility] SPECIMEN SOURCE, GLUCOSE POC Capillary 12/13/2024 11:39 AM CDT [facility] Blood, whole 12/13/2024 11:3 9 AM CDT 12/13/2024 12:02 PM CDT us Otis Chen MD POINT OF CARE TESTING Final Res ult [facility] CLIA # [id number] [address] [place] [address] * (ABNORMAL) POC GLUCOSE (12/13/2024 7:06 AM CDT) Pathologist [facility] GLUCOSE POC 148(H) 74 - 99 mg/dL 12/13/2024 7:06 AM T [facility] SPECIMEN SOURCE, GLUCOSE POC Capillary 12/13/2024 7:06 AM T [facility] Blood, whole 12/13/2024 7:06 AM CDT 12/13/2024 7:44 AM CDT us Otis Chen MD POINT OF CARE TESTING Final Res ult [facility] CLIA # [id number] [facility] [address] * (ABNORMAL) BASIC METABOLIC PANEL (12/13/2024 6:22 AM CDT) [facility] SODIUM 142 136 - 145 mmol/L 12/13/2024 7:28 AM [facility] POTASSIUM 3.9 3.5 - 5.1 mmol/L 12/13/2024 7:28 AM [facility] Comment:Slightly hemolyzed. Result may be falsely elevated. CHLORIDE 104 98 - 107 mmol/L 12/13/2024 7:28 AM [facility] CO2 28 22 - 29 mmol/L 12/13/2024 7:28 AM [facility] CALCIUM 9.4 8.6 - 10.0 mg/dL 12/13/2024 7:28 AM [facility] BUN 17 6 - 20 mg/dL 12/13/2024 7:28 AM [facility] CREATININE 0.49(L) 0.51 - 0.95 mg/dL 12/13/2024 7:28 AM [facility] GLUCOSE 152(H) 74 - 99 mg/dL 12/13/2024 7:28 AM [facility] GFR >60 >=60 mL/min/1. 73 sq meter 12/13/2024 7:28 AM CDT [facility] Comment:eGFR calculated with 2020 CKD-EPI equation. Vegetarian diet, extremely high or low muscle mass, and may affect results. Cystatin C with Glomerular Filtration Rate is a suitable alternative for these patients. ANION GAP 10 9 - 20 mmol/L 12/13/2024 7:28 AM CDT [facility] Blood Venipuncture / Unknown 12/13/2024 6:22 AM CDT 12/13/2024 6:48 AM CDT us Otis Chen MD CHEMISTRY ORDERABLES Final Resu lt Performing Organization Address [facility]/ZIP Co de Phone Number [facility] CLIA # [id number] [address] [phone] * (ABNORMAL) POC GLUCOSE (12/13/2024 4:59 AM CDT) GLUCOSE POC 165(H) 74 - 99 mg/dL 12/13/2024 4:59 AM CDT [facility] SPECIMEN SOURCE, GLUCOSE POC Capillary 12/13/2024 4:59 AM CDT [facility] Blood, whole 12/13/2024 4:59 AM CDT 12/13/2024 5:08 AM CDT us Otis Chen MD POINT OF CARE TESTING Final Res ult Performing Organization Address [facility]/ZIP Co de Phone Number [facility] CLIA # [id number] [address] [id number] * (ABNORMAL) PROTIME-INR (12/13/2024 1:21 AM CDT) PROTIME 27.3(H) 12.7 - 14.9 Seconds 12/13/2024 2:04 AM CDT [facility] INR 2.4(H) 0.8 - 1.2 12/13/2024 2:04 AM CDT [facility] Blood Venipuncture / Unknown 12/13/2024 1:21 AM CDT 12/13/2024 1:31 AM CDT Narrative [facility] - 12/13/2024 2:04 AM CDT Expected Values for INR: DVT/PE [...] INR 2.5; range 2.0 - 3.0 us Efraín Dey DO HEMATOLOGY ORDERABLES Final Result Performing Organization Address [facility]/ZIP Co de Phone Number [facility] CLIA # [id number] [address] [address] * (ABNORMAL) POC GLUCOSE (12/13/2024 1:18 AM CDT) GLUCOSE POC 217(H) 74 - 99 mg/dL 12/13/2024 1:18 AM CDT [facility] SPECIMEN SOURCE, GLUCOSE POC Capillary 12/13/2024 1:18 AM CDT [facility] Blood, whole 12/13/2024 1:18 AM CDT 12/13/2024 1:28 AM CDT us Otis Chen MD POINT OF CARE TESTING Final Res ult Performing Organization Address City/[facility]/ZIP Co de Phone Number [facility] CLIA # [id number] [address] [place] [address] * (ABNORMAL) POC GLUCOSE (12/12/2024 9:36 PM CDT) [facility] Signature GLUCOSE POC 366(H) 74 - 99 mg/dL 12/12/2024 9:36 PM CDT [facility] SPECIMEN SOURCE, GLUCOSE POC Capillary 12/12/2024 9:36 PM CDT [facility] Blood, whole 12/12/2024 9:36 PM CDT 12/12/2024 9:44 PM CDT Otis Chen MD POINT OF CARE TESTING Final Res ult Performing Organization Address City/[facility]/ZIP Co de Phone Number [facility] CLIA # [id number] [address] [address] * (ABNORMAL) POC GLUCOSE (12/12/2024 8:48 PM CDT) [facility] GLUCOSE POC 340(H) 74 - 99 mg/dL 12/12/2024 8:48 PM CDT [facility] SPECIMEN SOURCE, GLUCOSE POC Capillary 12/12/2024 8:48 PM CDT [facility] Blood, whole 12/12/2024 8:48 PM CDT 12/12/2024 8:55 PM CDT Otis Chen MD POINT OF CARE TESTING Final Res ult [facility] CLIA # [id number] [address] [place] [address] * (ABNORMAL) DRUG SCREEN, URINE (12/12/2024 6:02 PM CDT) Pathologist [facility] AMPHETAMINE QUAL, URINE Negative Negative 12/12/2024 6:53 PM [facility] BARBITURATE QUAL, URINE Negative Negative 12/12/2024 6:53 PM [facility] BENZODIAZEPINE QUAL, URINE Negative Negative 12/12/2024 6:53 PM [facility] COCAINE QUAL URINE Negative Negative 12/12/2024 6:53 PM [facility] OPIATE QUAL, URINE Presumptive Positive(A) Negative 12/12/2024 6:53 PM [facility] CANNABINOIDS QUAL, URINE Negative Negative 12/12/2024 6:53 PM [facility] OXYCODONE QUAL, URINE Negative Negative 12/12/2024 6:53 PM [facility] METHADONE QUAL, URINE Negative Negative 12/12/2024 6:53 PM [facility] FENTANYL QUAL, URINE Negative Negative 12/12/2024 6:53 PM [facility] CREATININE, URINE 127.1 29.0 - 226.0 mg/dL 12/12/2024 6:53 PM [facility] Comment:Reference Range vari es with fluid intake and diet. Urine URINE SPECIMEN OBTAINED BY CLEAN CATCH PROCEDURE / Unknown Collection / Unknown 12/12/2024 6:02 PM T 12/12/2024 6:10 PM T Narrative [facility] - 12/12/2024 6:53 PM CDT This test is a qualitative screen. 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 : 1965 Requested By: Order Number: [id number] Reading MD: Shayy Givens Measurements Intervals [place] Rate: 85 P: 0 OR: 120 QRS: 37 QRSD: 86 T: 18 QT: 374 QTc: 445 Interpretive Statements Ectopic atrial rhythm Inferior infarct, age undetermined Abnormal ECG Electronically Signed On 12-13-2024 6:49:12 CDT by Shayy Givens Procedure Note Shayy Givens MD - 12/13/[address] [address] Test Date: 2024-12-12 Pat Name: LE DIAZ Department: 12 Room: [address] [place] [address] 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[email or web address] : 1965 Requested By: Order Number: [id number] Reading MD: Shayy Givens Measurements Intervals [place] Rate: 85 P: 0 OR: 120 QRS: 37 QRSD: 86 T: 18 QT: 374 QTc: 445 Interpretive Statements Ectopic atrial rhythm Inferior infarct, age undetermined Abnormal ECG Electronically Signed On 12-13-2024 6:49:12 CDT by Shayy Givens us Otis Chen MD ECG ORDERABLES Final Result INTERFACE SYSTEM Refer to clinic/hospital department * (ABNORMAL) POC GLUCOSE (12/12/2024 5:14 PM CDT) GLUCOSE POC 325(H) 74 - 99 mg/dL 12/12/2024 5:14 PM CDT [facility] SPECIMEN SOURCE, GLUCOSE POC Capillary 12/12/2024 5:14 PM CDT [facility] Blood, whole 12/12/2024 5:14 PM CDT 12/12/2024 5:23 PM CDT us Otis Chen MD POINT OF CARE TESTING Final Res ult [facility] CLIA # [id number] [address] [address] * CT HEAD WO CONTRAST (12/12/2024 3:11 PM CDT) Anatomical Region Laterality Modality Head Computed Tomogra phy 12/12/2024 3:07 PM CDT Impressions 12/12/2024 3:34 PM CDT IMPRESSION: 1. No acute intracranial abnormality. 2. Mild chronic microangiopathic changes. Narrative 12/12/2024 3:34 PM CDT EXAM: CT HEAD WO CONTRAST DATE/TIME OF EXAM: 12/12/2024 3:11 PM REASON FOR STUDY: Syncope/presyncope, cerebrovascular cause suspected DIAGNOSIS: Acute respiratory failure with hypercapnia (CMS/HCC); COPD with exacerbation (CMS/HCC); Chest pain, unspecified type; Infiltrate of lung present on chest x-ray COMPARISON: November 13, 2024. TECHNIQUE: CT head performed without contrast. FINDINGS: No evidence of an acute territorial infarct, parenchymal hemorrhage, hydrocephalus or abnormal extra-axial fluid collection. No midline shift. Basilar cisterns remain patent. Hypodensities in the periventricular white matter are nonspecific but compatible with mild microangiopathic changes. Prominent perivascular spaces inferior to the bilateral basal ganglia are unchanged. No mastoid effusion. No paranasal sinus fluid level. No calvarial fracture. Procedure Note Tarik Archuleta MD - 12/12/2024 EXAM: CT HEAD WO CONTRAST DATE/TIME OF EXAM: 12/12/2024 3:11 PM REASON FOR STUDY: Syncope/presyncope, cerebrovascular cause suspected DIAGNOSIS: Acute respiratory failure with hypercapnia (CMS/HCC); COPD with exacerbation (CMS/HCC); Chest pain, unspecified type; Infiltrate of lung present on chest x-ray COMPARISON: November 13, 2024. TECHNIQUE: CT head performed without contrast. FINDINGS: No evidence of an acute territorial infarct, parenchymal hemorrhage, hydrocephalus or abnormal extra-axial fluid collection. No midline shift. Basilar cisterns remain patent. Hypodensities in the periventricular white matter are nonspecific but compatible with mild microangiopathic changes. Prominent perivascular spaces inferior to the bilateral basal ganglia are unchanged. No mastoid effusion. No paranasal sinus fluid level. No calvarial fracture. IMPRESSION: 1. No acute intracranial abnormality. 2. Mild chronic microangiopathic changes. us Otis Chen MD CT ORDERABLES Final Result * ECHOCARDIOGRAM W/ CONTRAST AGENT (12/12/2024 2:35 PM CDT) EJECTION FRACTION 45 INTERFACE SYSTEM 12/12/2024 12:4 7 PM CDT Narrative INTERFACE SYSTEM - 12/12/2024 9:11 PM CDT [facility] Cardiovascular Services Echocardiography Laboratory [address] [place] [address] Transthoracic Echocardiography Patient: Le Diaz Study ID: ECHO COMPLETE - Gender: F : 1965 Age: 59 Room: [facility] Study Date: 12/12/2024 Pt Status: Inpatient Study Time: 12:47:40 PM CSN #: [id number] Ordering:Otis Chen Building Manager: MONTY Indications and History: Syncope. Summary and Conclusion: - Left ventricle: The cavity size is normal. Wall thickness is upper normal to mildly increased. Global systolic function is mildly reduced. The estimated ejection fraction is 40-45%. For Epic reporting: the left ventricular ejection fraction is 45% by visual assessment. Hypokinesis of the inferior wall. Grade I diastolic dysfunction. The global longitudinal strain is -12.4% (Normal range is -18 to -25). - Right ventricle: The cavity size is normal. Systolic function is normal. Systolic pressure is not obtained. - Left atrium: The atrium is upper normal to mildly dilated. - Aortic valve: The leaflets are mildly thickened and mildly calcified. - Mitral valve: There is trivial to mild regurgitation. - Pulmonic valve: There is mild regurgitation. - Little change compared to the prior echo. Procedure information: Comparison is made to the study of 11/02/2024. Study status: Routine. Procedure: A transthoracic echocardiogram was performed. Image quality was adequate. The study was technically limited due to poor acoustic window availability. Scanning was performed from the parasternal, apical, subcostal, and suprasternal notch acoustic windows. Intravenous contrast (Definity) was administered. There were no contrast reactions. Study components: M-mode, 2D, complete spectral Doppler, and color Doppler. Height: 162.6cm. Height: 64in. Weight: 102.1kg. Weight: 225.1lb. BMI: 38.6kg/m^2. BSA: 2.2m^2. Blood pressure: 125/81 Study date: 12/12/2024. Study time: 12:47 PM. Location: Bedside. Cardiac Anatomy: LEFT VENTRICLE: The cavity size is normal. Wall thickness is upper normal to mildly increased. Global systolic function is mildly reduced. The estimated ejection fraction is 40-45%. For Epic reporting: the left ventricular ejection fraction is 45% by visual assessment. The longitudinal strain is -12.4% (Normal range is -18 to -25). The global longitudinal strain is -12.4% (Normal range is -18 to -25). Regional wall motion abnormalities: Hypokinesis of the inferior wall. Grade I diastolic dysfunction. RIGHT VENTRICLE: The cavity size is normal. Systolic function is normal. Systolic pressure is not obtained. LEFT ATRIUM: The atrium is upper normal to mildly dilated. RIGHT ATRIUM: The atrium is normal in size. ATRIAL SEPTUM: No obvious PFO or ASD identified by 2D imaging and color Doppler. AORTIC VALVE: Not well visualized. The leaflets are mildly thickened and mildly calcified. There is no stenosis. There is no significant regurgitation. MITRAL VALVE: Structurally normal valve. There is no evidence for stenosis. There is trivial to mild regurgitation. TRICUSPID VALVE: Structurally normal valve. Mobility is unrestricted. There is no evidence for stenosis. There is no significant regurgitation. PULMONIC VALVE: Not well visualized. The valve appears to be grossly normal. There is no evidence for stenosis. There is mild regurgitation. PERICARDIUM: There is no pericardial effusion. AORTA: Aortic root: The root is not dilated. Measurements Left ventricle Value LVOT Value GLS, 2D -12.4 % Peak reynaldo, S 108 cm/sec ESD, LAX 3.9 cm Peak grad, S 5 mm Hg ESD/bsa, LAX 1.8 cm/m^2 FS, LAX 20 % Right ventricle Value FS, LAX chord 20 % JUANY, LAX 2.6 cm ESD major ax, A4C 7.7 cm JUANY 2.6 cm ESD/bsa major ax, A4C 3.5 cm/m^2 TAPSE, 2D 1.7 cm JUANY minor ax, A4C 7.7 cm TAPSE, MM 1.7 cm JUANY/bsa minor ax, A4C 3.5 cm/m^2 S' lateral 11.0 cm/sec CORAL, A4C 34.6 cm^2 ARLENE, A4C 24.8 cm^2 Left atrium Value FAC, A4C 28 % AP dim, ES 4.2 cm JUANY major ax, A2C 8.4 cm AP dim index, ES 1.9 cm/m^2 JUANY/bsa major ax, A2C 3.8 cm/m^2 Area ES, A4C 23 cm^2 CORAL, A2C 35.3 cm^2 SI dim, A2C 4.8 cm ARLENE, A2C 23.1 cm^2 Vol, ES, 1-p A4C 66 ml FAC, A2C 35 % Vol/bsa, ES, 1-p A4C 30 ml/m^2 IVS, ED 1.0 cm Vol, ES, 1-p A2C 41 ml PW, ED 1.0 cm Vol/bsa, ES, 1-p A2C 18 ml/m^2 IVS/PW, ED 1 Vol, ES, 2-p 54 ml EDV 111 ml Vol/bsa, ES, 2-p 25 ml/m^2 ESV 66 ml EF 41 % Right atrium Value EDV/bsa 51 ml/m^2 Area, ES, A4C 13 cm^2 ESV/bsa 30 ml/m^2 EDV, 1-p A2C 125 ml Aortic valve Value ESV, 1-p A2C 58 ml Peak v, S 131 cm/sec EF, 1-p A2C 47 % Peak grad, S 7 mm Hg SV, 1-p A2C 46 ml LVOT/AV, Vpeak ratio 0.82 EDV/bsa, 1-p A2C 57 ml/m^2 ESV/bsa, 1-p A2C 26 ml/m^2 Mitral valve Value SV/bsa, 1-p A2C 20.7 ml/m^2 Mean v, D 32.9 cm/sec EDV, 1-p A4C 118 ml Peak E 42.4 cm/sec ESV, 1-p A4C 70 ml Peak A 73.4 cm/sec EF, 1-p A4C 41 % VTI leaflet coapt 11.4 cm SV, 1-p A4C 57 ml Decel slope 202 cm/s^2 EDV/bsa, 1-p A4C 54 ml/m^2 Decel time 190 ms ESV/bsa, 1-p A4C 32 ml/m^2 PHT 69 ms SV/bsa, 1-p A4C 26 ml/m^2 Mean grad, D 1 mm Hg EDV, 2-p 121 ml Peak E/A ratio 0.6 ESV, 2-p 73 ml E-VTI 11.4 cm EF, 2-p 40 % A-VTI 11.4 cm SV, 2-p 48 ml VTI E/A 1.0 EDV/bsa, 2-p 55 ml/m^2 MVA, PHT 3.19 cm^2 ESV/bsa, 2-p 33 ml/m^2 MVA/bsa, PHT 1.45 cm^2/m^2 SV/bsa, 2-p 23.3 ml/m^2 Lainey VTI 11.4 cm EDV, MM Teich. 111 ml Vena contracta width 2.6 cm EF, MM Teich. 41 % EDV/bsa, MM Teich. 51 ml/m^2 Tricuspid valve Value EF, MM on 2D Teich. 41 % Peak RV-RA grad, S 16 mm Hg E', lat lainey, TDI 6.2 cm/sec E/e', lat lainey, TDI 7 Aortic root Value E', med lainey, TDI 3.3 cm/sec S-T junct diam, ED 2.6 cm E/e', med lainey, TDI 13 S-T junct diam/bsa, ED 1.2 cm/m^2 E', avg, TDI 4.7 cm/sec E/e', avg, TDI 9 Ascending aorta Value AAo AP diam, S 3.6 cm AAo AP diam/bsa, S 1.6 cm/m^2 Legend: (L) and (H) dottie values outside specified reference range. [facility] Echo Labs are accredited with the Intersocietal Accreditation Commission - Echocardiography. Prepared and Electronically Authenticated Toni Leija Confirmed 12/12/2024 21:11 Procedure Note Toni Leija MD - 12/12/2024 [facility] Cardiovascular Services Echocardiography Laboratory [address] [place] [id number] Transthoracic Echocardiography Patient: Le Diaz Study ID: ECHOCOMMALICK - Gender: F : 1965 Age: 59 Room: [facility] Study Date: 12/12/2024 Pt Status: Inpatient Study Time: 12:47:40 PM CSN #: [id number] Ordering:Otis Chen Building Manager: JRR Indications and History: Syncope. Summary and Conclusion: - Left ventricle: The cavity size is normal. Wall thickness is uppernormal to mildly increased. Global systolic function is mildly reduced. Theestimated ejection fraction is 40-45%. For Epic reporting: the left ventricular ejection fraction is 45% by visual assessment. Hypokinesis of theinferior wall. Grade I diastolic dysfunction. The global longitudinal strain is -12.4% (Normal range is -18 to -25). - Right ventricle: The cavity size is normal. Systolic function isnormal. Systolic pressure is not obtained. - Left atrium: The atrium is upper normal to mildly dilated. - Aortic valve: The leaflets are mildly thickened and mildly calcified. - Mitral valve: There is trivial to mild regurgitation. - Pulmonic valve: There is mild regurgitation. - Little change compared to the prior echo. Procedure information: Comparison is made to the study of 11/02/2024.Study status: Routine. Procedure: A transthoracic echocardiogram wasperformed. Image quality was adequate. The study was technically limited due topoor acoustic window availability. Scanning was performed from theparasternal, apical, subcostal, and suprasternal notch acoustic windows. Intravenous contrast (Definity) was administered. There were no contrast reactions. Study components: M-mode, 2D, complete spectral Doppler, and colorDoppler. Height: 162.6cm. Height: 64in. Weight: 102.1kg. Weight: 225.1lb.BMI: 38.6kg/m^2. BSA: 2.2m^2. Blood pressure: 125/81 Study date: 12/12/2024. Study time: 12:47 PM. Location: Bedside. Cardiac Anatomy: LEFT VENTRICLE: The cavity size is normal. Wall thickness is upper normalto mildly increased. Global systolic function is mildly reduced. Theestimated ejection fraction is 40-45%. For Epic reporting: the left ventricularejection fraction is 45% by visual assessment. The longitudinal strain is -12.4% (Normal range is -18 to -25). The global longitudinal strain is -12.4%(Normal range is -18 to -25). Regional wall motion abnormalities: Hypokinesisof the inferior wall. Grade I diastolic dysfunction. RIGHT VENTRICLE: The cavity size is normal. Systolic function isnormal. Systolic pressure is not obtained. LEFT ATRIUM: The atrium is upper normal to mildly dilated. RIGHT ATRIUM: The atrium is normal in size. ATRIAL SEPTUM: No obvious PFO or ASD identified by 2D imaging and color Doppler. AORTIC VALVE: Not well visualized. The leaflets are mildly thickenedand mildly calcified. There is no stenosis. There is no significant regurgitation. MITRAL VALVE: Structurally normal valve. There is no evidence for stenosis. There is trivial to mild regurgitation. TRICUSPID VALVE: Structurally normal valve. Mobility isunrestricted. There is no evidence for stenosis. There is no significantregurgitation. PULMONIC VALVE: Not well visualized. The valve appears to be grosslynormal. There is no evidence for stenosis. There is mild regurgitation. PERICARDIUM: There is no pericardial effusion. AORTA: Aortic root: The root is not dilated. Measurements Left ventricle Value LVOT Value GLS, 2D -12.4 % Peak reynaldo, S 108cm/sec ESD, LAX 3.9 cm Peak grad, S 5 mmHg ESD/bsa, LAX 1.8 cm/m^2 FS, LAX 20 % Right ventricle Value FS, LAX chord 20 % JUANY, LAX 2.6 cm ESD major ax, A4C 7.7 cm JUANY 2.6 cm ESD/bsa major ax, A4C 3.5 cm/m^2 TAPSE, 2D 1.7 cm JUANY minor ax, A4C 7.7 cm TAPSE, MM 1.7 cm JUANY/bsa minor ax, A4C 3.5 cm/m^2 S' lateral 11.0cm/sec CORAL, A4C 34.6 cm^2 ARLENE, A4C 24.8 cm^2 Left atrium Value FAC, A4C 28 % AP dim, ES 4.2 cm JUANY major ax, A2C 8.4 cm AP dim index, ES 1.9cm/m^2 JUANY/bsa major ax, A2C 3.8 cm/m^2 Area ES, A4C 23 cm^2 CORAL, A2C 35.3 cm^2 SI dim, A2C 4.8 cm ARLENE, A2C 23.1 cm^2 Vol, ES, 1-p A4C 66 ml FAC, A2C 35 % Vol/bsa, ES, 1-p A4C 30ml/m^2 IVS, ED 1.0 cm Vol, ES, 1-p A2C 41 ml PW, ED 1.0 cm Vol/bsa, ES, 1-p A2C 18ml/m^2 IVS/PW, ED 1 Vol, ES, 2-p 54 ml EDV 111 ml Vol/bsa, ES, 2-p 25ml/m^2 ESV 66 ml EF 41 % Right atrium Value EDV/bsa 51 ml/m^2 Area, ES, A4C 13 cm^2 ESV/bsa 30 ml/m^2 EDV, 1-p A2C 125 ml Aortic valve Value ESV, 1-p A2C 58 ml Peak v, S 131cm/sec EF, 1-p A2C 47 % Peak grad, S 7 mmHg SV, 1-p A2C 46 ml LVOT/AV, Vpeak ratio 0.82 EDV/bsa, 1-p A2C 57 ml/m^2 ESV/bsa, 1-p A2C 26 ml/m^2 Mitral valve Value SV/bsa, 1-p A2C 20.7 ml/m^2 Mean v, D 32.9cm/sec EDV, 1-p A4C 118 ml Peak E 42.4cm/sec ESV, 1-p A4C 70 ml Peak A 73.4cm/sec EF, 1-p A4C 41 % VTI leaflet coapt 11.4 cm SV, 1-p A4C 57 ml Decel slope 202cm/s^2 EDV/bsa, 1-p A4C 54 ml/m^2 Decel time 190 ms ESV/bsa, 1-p A4C 32 ml/m^2 PHT 69 ms SV/bsa, 1-p A4C 26 ml/m^2 Mean grad, D 1 mmHg EDV, 2-p 121 ml Peak E/A ratio 0.6 ESV, 2-p 73 ml E-VTI 11.4 cm EF, 2-p 40 % A-VTI 11.4 cm SV, 2-p 48 ml VTI E/A 1.0 EDV/bsa, 2-p 55 ml/m^2 MVA, PHT 3.19 cm^2 ESV/bsa, 2-p 33 ml/m^2 MVA/bsa, PHT 1.45cm^2/m^2 SV/bsa, 2-p 23.3 ml/m^2 Lainey VTI 11.4 cm EDV, MM Teich. 111 ml Vena contracta width 2.6 cm EF, MM Teich. 41 % EDV/bsa, MM Teich. 51 ml/m^2 Tricuspid valve Value EF, MM on 2D Teich. 41 % Peak RV-RA grad, S 16 mmHg E', lat lainey, TDI 6.2 cm/sec E/e', lat lainey, TDI 7 Aortic root Value E', med aliney, TDI 3.3 cm/sec S-T junct diam, ED 2.6 cm E/e', med lainey, TDI 13 S-T junct diam/bsa, ED 1.2cm/m^2 E', avg, TDI 4.7 cm/sec E/e', avg, TDI 9 Ascending aorta Value AAo AP diam, S 3.6 cm AAo AP diam/bsa, S 1.6cm/m^2 Legend: (L) and (H) dottie values outside specified reference range. [facility] are accredited with theIntersocietal Accreditation Commission - Echocardiography. Prepared and Electronically Authenticated Toni Leija Confirmed 12/12/2024 21:11 us Otis Chen MD ORDERABLES Final Result Performing Organization Address City/State/[facility] Co de Phone Number INTERFACE SYSTEM Refer to clinic/hospital department * (ABNORMAL) BLOOD GAS VENOUS (12/12/2024 1:38 PM CDT) [facility] PH BLOOD POC 7.39 7.32 - 7.43 12/12/2024 1:38 PM CDT [facility] PCO2 POC 58(H) 38 - 50 mm Hg 12/12/2024 1:38 PM CDT [facility] PO2 POC 36 25 - 40 mm Hg 12/12/2024 1:38 PM CDT [facility] HCO3 (CALC) POC 35(H) 22 - 29 mmol/L 12/12/2024 1:38 PM T [facility] HEMOGLOBIN POC 11.3(L) 12.0 - 18.0 g/dL 12/12/2024 1:38 PM T [facility] BASE EXCESS POC 10(H) -2 - 3 mmol/L 12/12/2024 1:38 PM [facility] O2 SATURATION POC 63 40 - 70 % 12/12/2024 1:38 PM [facility] SODIUM POC 138 135 - 145 mmol/L 12/12/2024 1:38 PM [facility] POTASSIUM POC 3.3(L) 3.5 - 4.9 mmol/L 12/12/2024 1:38 PM T [facility] HEMATOCRIT POC 34(L) 38 - 51 % 12/12/2024 1:38 PM [facility] PH TEMP CORRECT 7.39 7.32 - 7.43 12/13/19 25 1:38 PM [facility] PCO2 TEMP CORRECT 58(H) 38 - 50 mm Hg 12/12/2024 1:38 PM [facility] PO2 TEMP CORRECT 36 25 - 40 mm Hg 12/12/2024 1:38 PM [facility] SPECIMEN SOURCE, GASES POC Venous 12/12/2024 1:38 PM [facility] CALCIUM IONIZED POC 4.5(L) 4.8 - 5.2 mg/dL 12/12/2024 1:38 PM [facility] TCO2 (CALC) POC 37(H) 22 - 26 mmol/L 12/12/2024 1:38 PM [facility] PUNC SITE POC No Charge 12/12/2024 1:38 PM [facility] PATIENT'S TEMPERATURE POC 37.0 degrees 12/12/2024 1:38 PM [facility] Blood, venous 12/12/2024 1:3 8 PM CDT 12/12/2024 1:39 PM CDT us Otis Chen MD ABG ORDERABLES Final Result [facility] CLIA # [id number] [address] [address] [place], [place] [address] * (ABNORMAL) POC GLUCOSE (12/12/2024 11:35 AM CDT) [facility] GLUCOSE POC 310(H) 74 - 99 mg/dL 12/12/2024 11:35 AM CDT [facility] SPECIMEN SOURCE, GLUCOSE POC Capillary 12/12/2024 11:35 AM CDT [facility] Blood, whole 12/12/2024 11:3 5 AM CDT 12/12/2024 11:49 AM CDT us Otis Chen MD POINT OF CARE TESTING Final Res ult [facility] CLIA # [id number] [address] [address] [place] [address] * (ABNORMAL) POC GLUCOSE (12/12/2024 7:16 AM CDT) [facility] GLUCOSE POC 278(H) 74 - 99 mg/dL 12/12/2024 7:16 AM CDT [facility] SPECIMEN SOURCE, GLUCOSE POC Capillary 12/12/2024 7:16 AM CDT [facility] Blood, whole 12/12/2024 7:16 AM CDT 12/12/2024 7:30 AM CDT us Otis Chen MD POINT OF CARE TESTING Final Res ult [facility] CLIA # [id number] [address] [address] [place] [address] * (ABNORMAL) POC GLUCOSE (12/12/2024 4:08 AM CDT) GLUCOSE POC 373(H) 74 - 99 mg/dL 12/12/2024 4:08 AM CDT [facility] SPECIMEN SOURCE, GLUCOSE POC Capillary 12/12/2024 4:08 AM T [facility] Blood, whole 12/12/2024 4:08 AM CDT 12/12/2024 4:59 AM CDT us Otis Chen MD POINT OF CARE TESTING Final Res ult [facility] # [id number] [address] [place] [address] * (ABNORMAL) BASIC METABOLIC PANEL (12/12/2024 3:21 AM CDT) Pathologist [facility] SODIUM 140 136 - 145 mmol/L 12/12/2024 4:31 AM [facility] POTASSIUM 3.7 3.5 - 5.1 mmol/L 12/12/2024 4:31 AM [facility] Comment:Moderate hemolysis p resent. Can cause significant falsely elevated result. Redraw if indicated. CHLORIDE 100 98 - 107 mmol/L 12/12/2024 4:31 AM [facility] CO2 26 22 - 29 mmol/L 12/12/2024 4:31 AM [facility] CALCIUM 8.7 8.6 - 10.0 mg/dL 12/12/2024 4:31 AM T [facility] BUN 19 6 - 20 mg/dL 12/12/2024 4:31 AM T [facility] CREATININE 0.59 0.51 - 0.95 mg/dL 12/12/2024 4:31 AM T [facility] GLUCOSE 372(H) 74 - 99 mg/dL 12/12/2024 4:31 AM [facility] GFR >60 >=60 mL/min/1.7 3 sq meter 12/12/2024 4:31 AM CDT [facility] Comment:eGFR calculated with 2020 CKD-EPI equation. Vegetarian diet, extremely high or low muscle mass, and may affect results. Cystatin C with Glomerular Filtration Rate is a suitable alternative for these patients. ANION GAP 14 9 - 20 mmol/L 12/12/2024 4:31 AM CDT [facility] Blood Venipuncture / Unknown 12/12/2024 3:21 AM CDT 12/12/2024 3:28 AM CDT us Otis Chen MD CHEMISTRY ORDERABLES Final Resu lt [facility] CLIA # [id number] [address] [place] [address] * (ABNORMAL) PROTIME-INR (12/12/2024 3:21 AM CDT) PROTIME 25.8(H) 12.7 - 14.9 Seconds 12/12/2024 3:38 AM CDT [facility] INR 2.2(H) 0.8 - 1.2 12/12/2024 3:38 AM CDT [facility] Blood Venipuncture / Unknown 12/12/2024 3:21 AM CDT 12/12/2024 3:26 AM CDT Narrative [facility] - 12/12/2024 3:38 AM CDT Expected Values for INR: DVT/PE [...] INR 2.5; range 2.0 - 3.0 us Efraín Dey DO HEMATOLOGY ORDERABLES Final Result Performing Organization Address [facility]/ZIP Co de Phone Number [facility] CLIA # [id number] [facility] [address] [address] * (ABNORMAL) UNFRACTIONATED HEPARIN MONITORING (12/12/2024 3:21 AM CDT) [facility] ANTI-XA UNFRAC HEP 0.96(HH) See Interpretation IU/mL 12/12/2024 3:50 AM CDT [facility] Blood Venipuncture / Unknown 12/12/2024 3:21 AM CDT 12/12/2024 3:26 AM CDT Narrative [facility] - 12/12/2024 3:50 AM CDT Therapeutic Range: PT/DVT Heparin Protocol 0.3 - 0.7 IU/ml Cardiac Heparin Protocol 0.3 - 0.6 IU/ml The reference range for this test is specific to the anticoagulant and is not appropriate for monitoring patients on a DOAC protocol. us Otis Chen MD HEMATOLOGY ORDERABLES Final Res ult Performing Organization Address [facility] Co de Phone Number [facility] CLIA # [id number] [facility] [address] [id number] * (ABNORMAL) CBC WITH DIFFERENTIAL (12/12/2024 3:21 AM CDT) [facility] WBC 12.7(H) 4.8 - 10.8 K/uL 12/12/2024 3:30 AM CDT [facility] NRBCS 1(H) <1 % 12/12/2024 3:30 AM CDT [facility] RBC 3.16(L) 4.20 - 5.40 M/uL 12/12/2024 3:30 AM CDT [facility] HEMOGLOBIN 9.2(L) 12.0 - 16.0 g/dL 12/12/2024 3:30 AM [facility] HEMATOCRIT 29.9(L) 36.0 - 46.0 % 12/12/2024 3:30 AM [facility] MCV 94.6 84.0 - 103.0 fL 12/12/2024 3:30 AM [facility] MCH 29.1 27.0 - 34.0 pg 12/12/2024 3:30 AM [facility] MCHC 30.8 30.0 - 35.0 g/dL 12/12/2024 3:30 AM [facility] PLATELETS 201 140 - 440 K/uL 12/12/2024 3:30 AM [facility] MPV 10.8 8.9 - 12.8 fL 12/12/2024 3:30 AM [facility] RDW 18.2(H) 11.0 - 14.5 % 12/12/2024 3:30 AM [facility] RDW-STDEV 63.7(H) 37.0 - 54.0 fL 12/12/2024 3:30 AM [facility] NEUTROPHILS 65 42 - 75 % 12/12/2024 3:30 AM [facility] LYMPHOCYTES 19(L) 24 - 44 % 12/12/2024 3:30 AM [facility] MONOCYTES 15(H) 2 - 10 % 12/12/2024 3:30 AM [facility] EOSINOPHILS 0 0 - 7 % 12/12/2024 3:30 AM [facility] BASOPHILS 0 0 - 1 % 12/12/2024 3:30 AM [facility] IMMATURE GRANULOCYTES 1 0 - 2 % 12/12/2024 3:30 AM [facility] NEUTROPHIL ABSOLUTE 8.29(H) 2.00 - 8.00 K/uL 12/12/2024 3:30 AM [facility] LYMPHOCYTE ABSOLUTE 2.43 1.20 - 4.00 K/uL 12/12/2024 3:30 AM CDT [facility] MONOCYTE ABSOLUTE 1.87(H) 0.10 - 0.60 K/uL 12/12/2024 3:30 AM CDT [facility] EOSINOPHIL ABSOLUTE 0.00 0.00 - 0.70 K/uL 12/12/2024 3:30 AM CDT [facility] BASOPHILS ABSOLUTE 0.02 0.00 - 0.20 K/uL 12/12/2024 3:30 AM CDT [facility] IMMATURE GRANULOCYTES ABSOLUTE 0.10 0.00 - 0.10 K/uL 12/12/2024 3:30 AM CDT [facility] SMEAR REVIEWED: NA - Not Applicable 12/12/2024 3:30 AM CDT [facility] Blood Venipuncture / Unknown 12/12/2024 3:21 AM CDT 12/12/2024 3:26 AM CDT us Otis Chen MD HEMATOLOGY ORDERABLES Final Res ult [facility] CLIA # [id number] [address] [id number] * (ABNORMAL) POC GLUCOSE (12/12/2024 2:25 AM CDT) GLUCOSE POC 333(H) 74 - 99 mg/dL 12/12/2024 2:25 AM CDT [facility] SPECIMEN SOURCE, GLUCOSE POC Capillary 12/12/2024 2:25 AM CDT [facility] Blood, whole 12/12/2024 2:25 AM CDT 12/12/2024 2:35 AM CDT us Otis Chen MD POINT OF CARE TESTING Final Res ult [facility] CLIA # [id number] [address] [place] [address] * (ABNORMAL) POC GLUCOSE (12/11/2024 11:45 PM CDT) [facility] GLUCOSE POC 395(H) 74 - 99 mg/dL 12/11/2024 11:45 PM CDT [facility] SPECIMEN SOURCE, GLUCOSE POC Capillary 12/11/2024 11:45 PM CDT [facility] Blood, whole 12/11/2024 11:4 5 PM CDT 12/11/2024 11:53 PM CDT Otis Chen MD POINT OF CARE TESTING Final Res ult Performing Organization Address [facility]/ZIP Co de Phone Number [facility] CLIA # [id number] [address] [place] [address] * (ABNORMAL) POC GLUCOSE (12/11/2024 9:03 PM CDT) [facility] GLUCOSE POC 438(HH) 74 - 99 mg/dL 12/11/2024 9:03 PM CDT [facility] SPECIMEN SOURCE, GLUCOSE POC Capillary 12/11/2024 9:03 PM CDT [facility] Blood, whole 12/11/2024 9:03 PM CDT 12/11/2024 9:28 PM CDT Otis Chen MD POINT OF CARE TESTING Final Res ult Performing Organization Address [facility]/ZIP Co de Phone Number [facility] CLIA # [id number] [address] [place] [address] * UNFRACTIONATED HEPARIN MONITORING (12/11/2024 9:00 PM CDT) [facility] ANTI-XA UNFRAC HEP 0.54 See Interpretation IU/mL 12/11/2024 9:19 PM CDT [facility] Blood Venipuncture / Unknown 12/11/2024 9:00 PM CDT 12/11/2024 9:06 PM CDT Narrative [facility] - 12/11/2024 9:19 PM CDT Therapeutic Range: PT/DVT Heparin Protocol 0.3 - 0.7 IU/ml Cardiac Heparin Protocol 0.3 - 0.6 IU/ml The reference range for this test is specific to the anticoagulant and is not appropriate for monitoring patients on a DOAC protocol. us Otis Chen MD HEMATOLOGY ORDERABLES Final Res ult Performing Organization Address [facility]/ZIP Co de Phone Number [facility] CLIA # [id number] [address] [phone] * (ABNORMAL) POC GLUCOSE (12/11/2024 5:38 PM CDT) [facility] GLUCOSE POC 389(H) 74 - 99 mg/dL 12/11/2024 5:38 PM CDT [facility] SPECIMEN SOURCE, GLUCOSE POC Capillary 12/11/2024 5:38 PM CDT [facility] Blood, whole 12/11/2024 5:38 PM CDT 12/11/2024 5:58 PM CDT us Otis Chen MD POINT OF CARE TESTING Final Res ult Performing Organization Address City/[facility]/ZIP Co de Phone Number [facility] CLIA # [id number] [address] [address] * UNFRACTIONATED HEPARIN MONITORING (12/11/2024 1:08 PM CDT) [facility] ANTI-XA UNFRAC HEP <0.10 See Interpretation IU/mL 12/11/2024 2:00 PM CDT [facility] Blood Venipuncture / Unknown 12/11/2024 1:08 PM CDT 12/11/2024 1:36 PM CDT Narrative [facility] - 12/11/2024 2:00 PM CDT Therapeutic Range: PT/DVT Heparin Protocol 0.3 - 0.7 IU/ml Cardiac Heparin Protocol 0.3 - 0.6 IU/ml The reference range for this test is specific to the anticoagulant and is not appropriate for monitoring patients on a DOAC protocol. Otis Chen MD HEMATOLOGY ORDERABLES Final Res ult Performing Organization Address [facility] Co de Phone Number [facility] CLIA # [id number] [address] [address] [place], [place] [address] * (ABNORMAL) POC GLUCOSE (12/11/2024 12:09 PM CDT) GLUCOSE POC 246(H) 74 - 99 mg/dL 12/11/2024 12:09 PM CDT [facility] SPECIMEN SOURCE, GLUCOSE POC Capillary 12/11/2024 12:09 PM CDT [facility] Blood, whole 12/11/2024 12:0 9 PM CDT 12/11/2024 12:41 PM CDT Otis Chen MD POINT OF CARE TESTING Final Res ult Performing Organization Address [facility]/ZIP Co de Phone Number [facility] CLIA # [id number] [address] [phone] * (ABNORMAL) POC GLUCOSE (12/11/2024 11:08 AM CDT) GLUCOSE POC 232(H) 74 - 99 mg/dL 12/11/2024 11:08 AM CDT [facility] SPECIMEN SOURCE, GLUCOSE POC Capillary 12/11/2024 11:08 AM CDT [facility] Blood, whole 12/11/2024 11:0 8 AM CDT 12/11/2024 12:41 PM CDT us Otis Chen MD POINT OF CARE TESTING Final Res ult Performing Organization Address [facility]/ZIP Co de Phone Number [facility] CLIA # [id number] [address] [address] * (ABNORMAL) POC GLUCOSE (12/11/2024 10:07 AM CDT) GLUCOSE POC 253(H) 74 - 99 mg/dL 12/11/2024 10:07 AM CDT [facility] SPECIMEN SOURCE, GLUCOSE POC Capillary 12/11/2024 10:07 AM CDT [facility] Blood, whole 12/11/2024 10:0 7 AM CDT 12/11/2024 10:24 AM CDT us Otis Chen MD POINT OF CARE TESTING Final Res ult Performing Organization Address [facility] de Phone Number [facility] CLIA # [id number] [address] [address] * (ABNORMAL) POC GLUCOSE (12/11/2024 9:07 AM CDT) GLUCOSE POC 250(H) 74 - 99 mg/dL 12/11/2024 9:07 AM CDT [facility] SPECIMEN SOURCE, GLUCOSE POC Capillary 12/11/2024 9:07 AM CDT [facility] Blood, whole 12/11/2024 9:07 AM CDT 12/11/2024 9:52 AM CDT us Otis Chen MD POINT OF CARE TESTING Final Res ult [facility] CLIA # [id number] [address] [facility] [place], [place] [address] * (ABNORMAL) POC GLUCOSE (12/11/2024 8:02 AM CDT) GLUCOSE POC 191(H) 74 - 99 mg/dL 12/11/2024 8:02 AM CDT [facility] SPECIMEN SOURCE, GLUCOSE POC Capillary 12/11/2024 8:02 AM CDT [facility] Blood, whole 12/11/2024 8:02 AM CDT 12/11/2024 9:52 AM CDT us Otis Chen MD POINT OF CARE TESTING Final Res ult Performing Organization Address [facility] Co de Phone Number [facility] CLIA # [id number] [address] [facility] [place], [place] [address] * (ABNORMAL) POC GLUCOSE (12/11/2024 7:05 AM CDT) GLUCOSE POC 205(H) 74 - 99 mg/dL 12/11/2024 7:05 AM CDT [facility] SPECIMEN SOURCE, GLUCOSE POC Capillary 12/11/2024 7:05 AM CDT [facility] Blood, whole 12/11/2024 7:05 AM CDT 12/11/2024 7:34 AM CDT us Otis Chen MD POINT OF CARE TESTING Final Res ult [facility] CLIA # [id number] [address] [place], [place] [address] * (ABNORMAL) POC GLUCOSE (12/11/2024 6:02 AM CDT) [facility] GLUCOSE POC 251(H) 74 - 99 mg/dL 12/11/2024 6:02 AM CDT [facility] SPECIMEN SOURCE, GLUCOSE POC Capillary 12/11/2024 6:02 AM CDT [facility] Blood, whole 12/11/2024 6:02 AM CDT 12/11/2024 6:09 AM CDT Otis Chen MD POINT OF CARE TESTING Final Res ult Performing Organization Address [facility]/ZIP Co de Phone Number [facility] CLIA # [id number] [address] [phone] * UNFRACTIONATED HEPARIN MONITORING (12/11/2024 5:44 AM CDT) [facility] ANTI-XA UNFRAC HEP 0.77 See Interpretation IU/mL 12/11/2024 6:19 AM CDT [facility] Blood Venipuncture / Unknown 12/11/2024 5:44 AM CDT 12/11/2024 6:02 AM CDT Narrative [facility] - 12/11/2024 6:19 AM CDT Therapeutic Range: PT/DVT Heparin Protocol 0.3 - 0.7 IU/ml Cardiac Heparin Protocol 0.3 - 0.6 IU/ml The reference range for this test is specific to the anticoagulant and is not appropriate for monitoring patients on a DOAC protocol. us Otis Chen MD HEMATOLOGY ORDERABLES Final Res ult Performing Organization Address [facility]/ZIP Co de Phone Number [facility] CLIA # [id number] [address] [phone] * (ABNORMAL) BASIC METABOLIC PANEL (12/11/2024 5:44 AM CDT) [facility] SODIUM 143 136 - 145 mmol/L 12/11/2024 6:43 AM T [facility] POTASSIUM 2.7(L) 3.5 - 5.1 mmol/L 12/11/2024 6:43 AM [facility] CHLORIDE 102 98 - 107 mmol/L 12/11/2024 6:43 AM T [facility] CO2 25 22 - 29 mmol/L 12/11/2024 6:43 AM [facility] CALCIUM 8.7 8.6 - 10.0 mg/dL 12/11/2024 6:43 AM T [facility] BUN 20 6 - 20 mg/dL 12/11/2024 6:43 AM [facility] CREATININE 0.59 0.51 - 0.95 mg/dL 12/11/2024 6:43 AM [facility] GLUCOSE 283(H) 74 - 99 mg/dL 12/11/2024 6:43 AM [facility] GFR >60 >=60 mL/min/1.7 3 sq meter 12/11/2024 6:43 AM [facility] Comment:eGFR calculated with 2020 CKD-EPI equation. Vegetarian diet, extremely high or low muscle mass, and may affect results. Cystatin C with Glomerular Filtration Rate is a suitable alternative for these patients. ANION GAP 16 9 - 20 mmol/L 12/11/2024 6:43 AM [facility] Blood Venipuncture / Unknown 12/11/2024 5:44 AM CDT 12/11/2024 6:03 AM CDT us Otis Chen MD CHEMISTRY ORDERABLES Final Resu lt [facility] CLIA # [id number] [facility] [address] [place], [place] [id number] * (ABNORMAL) PROTIME-INR (12/11/2024 5:44 AM CDT) PROTIME 15.6(H) 12.7 - 14.9 Seconds 12/11/2024 6:18 AM CDT [facility] INR 1.2 0.8 - 1.2 12/11/2024 6:18 AM CDT [facility] Blood Venipuncture / Unknown 12/11/2024 5:44 AM CDT 12/11/2024 6:02 AM CDT [facility] - 12/11/2024 6:18 AM CDT Expected Values for INR: DVT/PE [...] INR 2.5; range 2.0 - 3.0 us Efraín Dey DO HEMATOLOGY ORDERABLES Final Result [facility] CLIA # [id number] [address] [place] [id number] * (ABNORMAL) CBC WITH DIFFERENTIAL (12/11/2024 5:44 AM CDT) WBC 11.9(H) 4.8 - 10.8 K/uL 12/11/2024 6:05 AM T [facility] NRBCS 1(H) <1 % 12/11/2024 6:05 AM T [facility] RBC 3.60(L) 4.20 - 5.40 M/uL 12/11/2024 6:05 AM T [facility] HEMOGLOBIN 10.5(L) 12.0 - 16.0 g/dL 12/11/2024 6:05 AM T [facility] HEMATOCRIT 33.4(L) 36.0 - 46.0 % 12/11/2024 6:05 AM [facility] MCV 92.8 84.0 - 103.0 fL 12/11/2024 6:05 AM [facility] MCH 29.2 27.0 - 34.0 pg 12/11/2024 6:05 AM [facility] MCHC 31.4 30.0 - 35.0 g/dL 12/11/2024 6:05 AM [facility] PLATELETS 178 140 - 440 K/uL 12/11/2024 6:05 AM [facility] MPV 10.7 8.9 - 12.8 fL 12/11/2024 6:05 AM [facility] RDW 18.1(H) 11.0 - 14.5 % 12/11/2024 6:05 AM [facility] RDW-STDEV 61.1(H) 37.0 - 54.0 fL 12/11/2024 6:05 AM [facility] NEUTROPHILS 81(H) 42 - 75 % 12/11/2024 6:05 AM [facility] LYMPHOCYTES 9(L) 24 - 44 % 12/11/2024 6:05 AM [facility] MONOCYTES 9 2 - 10 % 12/11/2024 6:05 AM [facility] EOSINOPHILS 0 0 - 7 % 12/11/2024 6:05 AM [facility] BASOPHILS 0 0 - 1 % 12/11/2024 6:05 AM [facility] IMMATURE GRANULOCYTES 1 0 - 2 % 12/11/2024 6:05 AM [facility] NEUTROPHIL ABSOLUTE 9.67(H) 2.00 - 8.00 K/uL 12/11/2024 6:05 AM [facility] LYMPHOCYTE ABSOLUTE 1.08(L) 1.20 - 4.00 K/uL 12/11/2024 6:05 AM [facility] MONOCYTE ABSOLUTE 1.03(H) 0.10 - 0.60 K/uL 12/11/2024 6:05 AM CDT [facility] EOSINOPHIL ABSOLUTE 0.00 0.00 - 0.70 K/uL 12/11/2024 6:05 AM CDT [facility] BASOPHILS ABSOLUTE 0.02 0.00 - 0.20 K/uL 12/11/2024 6:05 AM CDT [facility] IMMATURE GRANULOCYTES ABSOLUTE 0.13(H) 0.00 - 0.10 K/uL 12/11/2024 6:05 AM CDT [facility] SMEAR REVIEWED: NA - Not Applicable 12/11/2024 6:05 AM CDT [facility] Blood Venipuncture / Unknown 12/11/2024 5:44 AM CDT 12/11/2024 6:00 AM CDT us Otis Chen MD HEMATOLOGY ORDERABLES Final Res ult Performing Organization Address City/[facility]/ZIP Co de Phone Number [facility] CLIA # [id number] [address] [address] * PHOSPHORUS (12/11/2024 5:44 AM CDT) [facility] PHOSPHORUS 2.7 2.5 - 4.5 mg/dL 12/11/2024 6:43 AM CDT [facility] Blood Venipuncture / Unknown 12/11/2024 5:44 AM CDT 12/11/2024 6:03 AM CDT us Otis Chen MD CHEMISTRY ORDERABLES Final Resu lt Performing Organization Address City/[facility]/ZIP Co de Phone Number [facility] CLIA # [id number] [address] [address] [place] [address] * MAGNESIUM LEVEL (12/11/2024 5:44 AM CDT) MAGNESIUM 1.6 1.6 - 2.6 mg/dL 12/11/2024 6:43 AM CDT [facility] Blood Venipuncture / Unknown 12/11/2024 5:44 AM CDT 12/11/2024 6:03 AM CDT us Otis Chen MD CHEMISTRY ORDERABLES Final Resu lt Performing Organization Address [facility] Co de Phone Number [facility] CLIA # [id number] [address] [address] [place] [address] * (ABNORMAL) POC GLUCOSE (12/11/2024 5:04 AM CDT) GLUCOSE POC 284(H) 74 - 99 mg/dL 12/11/2024 5:04 AM CDT [facility] SPECIMEN SOURCE, GLUCOSE POC Capillary 12/11/2024 5:04 AM CDT [facility] Blood, whole 12/11/2024 5:04 AM CDT 12/11/2024 5:12 AM CDT us Otis Chen MD POINT OF CARE TESTING Final Res ult Performing Organization Address [facility] de Phone Number [facility] CLIA # [id number] [address] [address] * (ABNORMAL) POC GLUCOSE (12/11/2024 4:07 AM CDT) GLUCOSE POC 300(H) 74 - 99 mg/dL 12/11/2024 4:07 AM CDT [facility] SPECIMEN SOURCE, GLUCOSE POC Capillary 12/11/2024 4:07 AM CDT [facility] Blood, whole 12/11/2024 4:07 AM CDT 12/11/2024 4:16 AM CDT us Otis Chen MD POINT OF CARE TESTING Final Res ult Performing Organization Address [facility]/ZIP Co de Phone Number [facility] CLIA # [id number] [address] [address] * (ABNORMAL) POC GLUCOSE (12/11/2024 2:55 AM CDT) GLUCOSE POC 281(H) 74 - 99 mg/dL 12/11/2024 2:55 AM CDT [facility] SPECIMEN SOURCE, GLUCOSE POC Capillary 12/11/2024 2:55 AM CDT [facility] Blood, whole 12/11/2024 2:55 AM CDT 12/11/2024 3:07 AM CDT us Otis Chen MD POINT OF CARE TESTING Final Res ult Performing Organization Address [facility] Co de Phone Number [facility] CLIA # [id number] [address] [address] * (ABNORMAL) POC GLUCOSE (12/11/2024 2:38 AM CDT) GLUCOSE POC 272(H) 74 - 99 mg/dL 12/11/2024 2:38 AM CDT [facility] SPECIMEN SOURCE, GLUCOSE POC Capillary 12/11/2024 2:38 AM CDT [facility] Blood, whole 12/11/2024 2:38 AM CDT 12/11/2024 2:47 AM CDT us Otis Chen MD POINT OF CARE TESTING Final Res ult Performing Organization Address [facility]/ZIP Co de Phone Number [facility] CLIA # [id number] [address] [address] [place] [address] * (ABNORMAL) POC GLUCOSE (12/11/2024 1:33 AM CDT) GLUCOSE POC 307(H) 74 - 99 mg/dL 12/11/2024 1:33 AM CDT [facility] SPECIMEN SOURCE, GLUCOSE POC Capillary 12/11/2024 1:33 AM CDT [facility] Blood, whole 12/11/2024 1:33 AM CDT 12/11/2024 1:40 AM CDT Otis Chen MD POINT OF CARE TESTING Final Res ult Performing Organization Address [facility]/ZIP Co de Phone Number [facility] CLIA # [id number] [address] [address] * (ABNORMAL) POC GLUCOSE (12/11/2024 12:20 AM CDT) GLUCOSE POC 368(H) 74 - 99 mg/dL 12/11/2024 12:20 AM CDT [facility] SPECIMEN SOURCE, GLUCOSE POC Capillary 12/11/2024 12:20 AM CDT [facility] Blood, whole 12/11/2024 12:2 0 AM CDT 12/11/2024 12:31 AM CDT Otis Chen MD POINT OF CARE TESTING Final Res ult [facility] CLIA # [id number] [address] [address] * UNFRACTIONATED HEPARIN MONITORING (12/10/2024 11:46 PM CDT) ANTI-XA UNFRAC HEP 0.62 See Interpretation IU/mL 12/11/2024 12:32 AM CDT [facility] Blood Venipuncture / Unknown 12/10/2024 11:46 PM CDT 12/11/2024 12:04 AM CDT Narrative [facility] - 12/11/2024 12:32 AM CDT Therapeutic Range: PT/DVT Heparin Protocol 0.3 - 0.7 IU/ml Cardiac Heparin Protocol 0.3 - 0.6 IU/ml The reference range for this test is specific to the anticoagulant and is not appropriate for monitoring patients on a DOAC protocol. us Otis Chen MD HEMATOLOGY ORDERABLES Final Res ult Performing Organization Address City/[facility]/ZIP Co de Phone Number [facility] CLIA # [id number] [address] [id number] * (ABNORMAL) POC GLUCOSE (12/10/2024 10:31 PM CDT) GLUCOSE POC 419(HH) 74 - 99 mg/dL 12/10/2024 10:31 PM CDT [facility] SPECIMEN SOURCE, GLUCOSE POC Capillary 12/10/2024 10:31 PM CDT [facility] COMMENT, GLU POC Alerted Nurse/MARIELLA/DR 12/10/2024 10:31 PM CDT [facility] Blood, whole 12/10/2024 10:3 1 PM CDT 12/10/2024 10:42 PM CDT us Otis Chen MD POINT OF CARE TESTING Final Res ult Performing Organization Address [facility]/ZIP Co de Phone Number [facility] CLIA # [id number] [address] [id number] * (ABNORMAL) POC GLUCOSE (12/10/2024 9:35 PM CDT) GLUCOSE POC 473(HH) 74 - 99 mg/dL 12/10/2024 9:35 PM CDT [facility] SPECIMEN SOURCE, GLUCOSE POC Capillary 12/10/2024 9:35 PM CDT [facility] COMMENT, GLU POC Alerted Nurse/MARIELLA/DR 12/10/2024 9:35 PM CDT [facility] Blood, whole 12/10/2024 9:35 PM CDT 12/10/2024 9:43 PM CDT us Otis Chen MD POINT OF CARE TESTING Final Res ult Performing Organization Address City/[facility]/ZIP Co de Phone Number [facility] CLIA # [id number] [address] [address] * (ABNORMAL) POC GLUCOSE (12/10/2024 8:33 PM CDT) GLUCOSE POC 428(HH) 74 - 99 mg/dL 12/10/2024 8:33 PM CDT [facility] SPECIMEN SOURCE, GLUCOSE POC Capillary 12/10/2024 8:33 PM CDT [facility] COMMENT, GLU POC Alerted Nurse/MARIELLA/DR 12/10/2024 8:33 PM CDT [facility] Blood, whole 12/10/2024 8:33 PM CDT 12/10/2024 8:41 PM CDT us Otis Chen MD POINT OF CARE TESTING Final Res ult [facility] CLIA # [id number] [address] [address] * (ABNORMAL) POC GLUCOSE (12/10/2024 7:32 PM CDT) GLUCOSE POC 438(HH) 74 - 99 mg/dL 12/10/2024 7:32 PM CDT [facility] SPECIMEN SOURCE, GLUCOSE POC Capillary 12/10/2024 7:32 PM CDT [facility] COMMENT, GLU POC Alerted Nurse/MARIELLA/DR 12/10/2024 7:32 PM CDT [facility] Blood, whole 12/10/2024 7:32 PM CDT 12/10/2024 7:40 PM CDT us Otis Chen MD POINT OF CARE TESTING Final Res ult [facility] CLIA # [id number] [address] [address] * (ABNORMAL) POC GLUCOSE (12/10/2024 6:26 PM CDT) GLUCOSE POC 447(HH) 74 - 99 mg/dL 12/10/2024 6:26 PM CDT [facility] SPECIMEN SOURCE, GLUCOSE POC Capillary 12/10/2024 6:26 PM CDT [facility] COMMENT, GLU POC Alerted Nurse/MARIELLA/DR 12/10/2024 6:26 PM CDT [facility] Blood, whole 12/10/2024 6:26 PM CDT 12/10/2024 6:34 PM CDT us Otis Chen MD POINT OF CARE TESTING Final Res ult [facility] CLIA # [id number] [address] [address] * (ABNORMAL) POC GLUCOSE (12/10/2024 5:18 PM CDT) GLUCOSE POC 446(HH) 74 - 99 mg/dL 12/10/2024 5:18 PM CDT [facility] SPECIMEN SOURCE, GLUCOSE POC Capillary 12/10/2024 5:18 PM CDT [facility] COMMENT, GLU POC Alerted Nurse/MARIELLA/DR 12/10/2024 5:18 PM CDT [facility] Blood, whole 12/10/2024 5:18 PM CDT 12/10/2024 5:56 PM CDT us Otis Chen MD POINT OF CARE TESTING Final Res ult Performing Organization Address City/[facility]/ZIP Co de Phone Number [facility] CLIA # [id number] [address] [address] * (ABNORMAL) POC GLUCOSE (12/10/2024 4:00 PM CDT) Pathologist [facility] GLUCOSE POC 498(HH) 74 - 99 mg/dL 12/10/2024 4:00 PM CDT [facility] SPECIMEN SOURCE, GLUCOSE POC Capillary 12/10/2024 4:00 PM CDT [facility] COMMENT, GLU POC Alerted Nurse/MARIELLA/DR 12/10/2024 4:00 PM CDT [facility] Blood, whole 12/10/2024 4:00 PM CDT 12/10/2024 4:16 PM CDT us Otis Chen MD POINT OF CARE TESTING Final Res ult Performing Organization Address City/[facility]/ZIP Co de Phone Number [facility] CLIA # [id number] [address] [address] * (ABNORMAL) CBC WITHOUT DIFFERENTIAL (12/10/2024 3:37 PM CDT) Pathologist [facility] WBC 9.8 4.8 - 10.8 K/uL 12/10/2024 4:48 PM CDT [facility] NRBCS 1(H) <1 % 12/10/2024 4:48 PM CDT [facility] RBC 3.48(L) 4.20 - 5.40 M/uL 12/10/2024 4:48 PM CDT [facility] HEMOGLOBIN 10.4(L) 12.0 - 16.0 g/dL 12/10/2024 4:48 PM CDT [facility] HEMATOCRIT 32.6(L) 36.0 - 46.0 % 12/10/2024 4:48 PM CDT [facility] MCV 93.7 84.0 - 103.0 fL 12/10/2024 4:48 PM CDT [facility] MCH 29.9 27.0 - 34.0 pg 12/10/2024 4:48 PM CDT [facility] MCHC 31.9 30.0 - 35.0 g/dL 12/10/2024 4:48 PM CDT [facility] PLATELETS 169 140 - 440 K/uL 12/10/2024 4:48 PM CDT [facility] MPV 10.7 8.9 - 12.8 fL 12/10/2024 4:48 PM CDT [facility] RDW 18.1(H) 11.0 - 14.5 % 12/10/2024 4:48 PM CDT [facility] RDW-STDEV 61.9(H) 37.0 - 54.0 fL 12/10/2024 4:48 PM CDT [facility] Blood Venipuncture / Unknown 12/10/2024 3:37 PM CDT 12/10/2024 4:35 PM CDT us Otis Chen MD HEMATOLOGY ORDERABLES Final Res ult [facility] CLIA # [id number] [facility] [address] [place] [address] * PTT (12/10/2024 3:37 PM CDT) PTT 26.7 24.8 - 37.2 seconds 12/10/2024 4:58 PM CDT [facility] Blood Venipuncture / Unknown 12/10/2024 3:37 PM CDT 12/10/2024 4:35 PM CDT [facility] - 12/10/2024 4:58 PM CDT Therapeutic Range: Hi-level PE/DVT heparin protocol 80.1 - 95.0 sec Lo-level PE/DVT heparin protocol 70.1 - 85.0 sec Cardiac Heparin Protocol 70.1 - 100.0 sec us Otis Chen MD HEMATOLOGY ORDERABLES Final Res ult Performing Organization Address [facility] de Phone Number [facility] CLIA # [id number] [address] [address] * UNFRACTIONATED HEPARIN MONITORING (12/10/2024 3:37 PM CDT) Pathologist [facility] ANTI-XA UNFRAC HEP 0.16 See Interpretation IU/mL 12/10/2024 4:57 PM CDT [facility] Blood Venipuncture / Unknown 12/10/2024 3:37 PM CDT 12/10/2024 4:35 PM CDT [facility] - 12/10/2024 4:57 PM CDT Therapeutic Range: PT/DVT Heparin Protocol 0.3 - 0.7 IU/ml Cardiac Heparin Protocol 0.3 - 0.6 IU/ml The reference range for this test is specific to the anticoagulant and is not appropriate for monitoring patients on a DOAC protocol. us Otis Chen MD HEMATOLOGY ORDERABLES Final Res ult Performing Organization Address [facility] Number [facility] CLIA # [id number] [id number] [place] [address] * (ABNORMAL) POC GLUCOSE (12/10/2024 11:31 AM CDT) GLUCOSE POC 524(HH) 74 - 99 mg/dL 12/10/2024 11:31 AM CDT [facility] SPECIMEN SOURCE, GLUCOSE POC Capillary 12/10/2024 11:31 AM CDT [facility] COMMENT, GLU POC Alerted Nurse/MARIELLA/DR 12/10/2024 11:31 AM CDT [facility] Blood, whole 12/10/2024 11:3 1 AM CDT 12/10/2024 11:54 AM CDT us Otis Chen MD POINT OF CARE TESTING Final Res ult [facility] CLIA # [id number] [address] [place] [address] * EKG 12-LEAD (12/10/2024 8:58 AM CDT) 12/10/2024 8:58 AM CDT Narrative INTERFACE SYSTEM - 12/10/2024 9:52 [place] [address] Test Date: 2024-12-10 Pat Name: LE DIAZ Department: 12 Room: [address] [place] [address] 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1965 Requested By: Order Number: [id number] Reading MD: Echo Tapia Measurements Intervals [place] Rate: 107 P: 0 OR: 156 QRS: 44 QRSD: 84 T: 19 QT: 358 QTc: 477 Interpretive Statements Sinus tachycardia, possible ectopic rhythm Possible Inferior infarct, age undetermined Abnormal ECG Electronically Signed On 12-10-2024 9:52:23 CDT by Echo Tapia Procedure Note Provider, Historical - 12/10/2024 [place] [address] Test Date: 2024-12-10 Pat Name: LE DIAZ Department: 12 Room: [address] [place] [address] 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[id number] : 1965 Requested By: Order Number: [id number] Reading MD: Echo Tapia Measurements Intervals [place] Rate: 107 P: 0 OR: 156 QRS: 44 QRSD: 84 T: 19 QT: 358 QTc: 477 Interpretive Statements Sinus tachycardia, possible ectopic rhythm Possible Inferior infarct, age undetermined Abnormal ECG Electronically Signed On 12-10-2024 9:52:23 CDT by Echo Tapia us Otis Chen MD ECG ORDERABLES Final Result Performing Organization Address City/[facility]/ZIP Co de Phone Number INTERFACE SYSTEM Refer to clinic/hospital department * (ABNORMAL) POC GLUCOSE (12/10/2024 7:35 AM CDT) GLUCOSE POC 486(HH) 74 - 99 mg/dL 12/10/2024 7:35 AM CDT [facility] SPECIMEN SOURCE, GLUCOSE POC Capillary 12/10/2024 7:35 AM CDT [facility] COMMENT, GLU POC Alerted Nurse/MARIELLA/DR 12/10/2024 7:35 AM CDT [facility] Blood, whole 12/10/2024 7:35 AM CDT 12/10/2024 7:52 AM CDT us Otis Chen MD POINT OF CARE TESTING Final Res ult Performing Organization Address City/[facility]/ZIP Co de Phone Number [facility] CLIA # [id number] [address] [place] [address] [place] [address] * (ABNORMAL) POC GLUCOSE (12/10/2024 5:15 AM CDT) GLUCOSE POC 473(HH) 74 - 99 mg/dL 12/10/2024 5:15 AM CDT [facility] SPECIMEN SOURCE, GLUCOSE POC Capillary 12/10/2024 5:15 AM CDT [facility] Blood, whole 12/10/2024 5:15 AM CDT 12/10/2024 6:12 AM CDT us Efraín Dey DO POINT OF CARE TESTING Final Result Performing Organization Address [facility] de Phone Number [facility] CLIA # [id number] [address] [address] [place] [address] * PROTIME-INR (12/10/2024 4:11 AM CDT) PROTIME 14.6 12.7 - 14.9 Seconds 12/10/2024 5:21 AM CDT [facility] INR 1.1 0.8 - 1.2 12/10/2024 5:21 AM CDT [facility] Blood Venipuncture / Unknown 12/10/2024 4:11 AM CDT 12/10/2024 5:09 AM CDT Narrative [facility] - 12/10/2024 5:21 AM CDT Expected Values for INR: DVT/PE [...] INR 2.5; range 2.0 - 3.0 us Efraín Dye DO HEMATOLOGY ORDERABLES Final Result Performing Organization Address [facility] Co de Phone Number [facility] CLIA # [id number] [address] [facility] [place], [place] [address] * (ABNORMAL) CBC WITH DIFFERENTIAL (12/10/2024 4:10 AM CDT) [facility] WBC 7.1 4.8 - 10.8 K/uL 12/10/2024 5:14 AM CDT [facility] NRBCS 1(H) <1 % 12/10/2024 5:14 AM CDT [facility] RBC 3.70(L) 4.20 - 5.40 M/uL 12/10/2024 5:14 AM CDT [facility] HEMOGLOBIN 11.0(L) 12.0 - 16.0 g/dL 12/10/2024 5:14 AM CDT [facility] HEMATOCRIT 35.7(L) 36.0 - 46.0 % 12/10/2024 5:14 AM CDT [facility] MCV 96.5 84.0 - 103.0 fL 12/10/2024 5:14 [facility] MCH 29.7 27.0 - 34.0 pg 12/10/2024 5:14 AM CDT [facility] MCHC 30.8 30.0 - 35.0 g/dL 12/10/2024 5:14 AM CDT [facility] PLATELETS 170 140 - 440 K/uL 12/10/2024 5:14 AM [facility] MPV 11.2 8.9 - 12.8 fL 12/10/2024 5:14 AM [facility] RDW 18.1(H) 11.0 - 14.5 % 12/10/2024 5:14 AM CDT [facility] RDW-STDEV 64.3(H) 37.0 - 54.0 fL 12/10/2024 5:14 AM CDT [facility] NEUTROPHILS 86(H) 42 - 75 % 12/10/2024 5:14 AM CDT [facility] LYMPHOCYTES 11(L) 24 - 44 % 12/10/2024 5:14 AM CDT [facility] MONOCYTES 1(L) 2 - 10 % 12/10/2024 5:14 AM CDT [facility] EOSINOPHILS 0 0 - 7 % 12/10/2024 5:14 AM CDT [facility] BASOPHILS 0 0 - 1 % 12/10/2024 5:14 AM CDT [facility] IMMATURE GRANULOCYTES 1 0 - 2 % 12/10/2024 5:14 AM CDT [facility] NEUTROPHIL ABSOLUTE 6.13 2.00 - 8.00 K/uL 12/10/2024 5:14 AM CDT [facility] LYMPHOCYTE ABSOLUTE 0.79(L) 1.20 - 4.00 K/uL 12/10/2024 5:14 AM CDT [facility] MONOCYTE ABSOLUTE 0.09(L) 0.10 - 0.60 K/uL 12/10/2024 5:14 AM CDT [facility] EOSINOPHIL ABSOLUTE 0.00 0.00 - 0.70 K/uL 12/10/2024 5:14 AM CDT [facility] BASOPHILS ABSOLUTE 0.02 0.00 - 0.20 K/uL 12/10/2024 5:14 AM CDT [facility] IMMATURE GRANULOCYTES ABSOLUTE 0.09 0.00 - 0.10 K/uL 12/10/2024 5:14 AM T [facility] SMEAR REVIEWED: NA - Not Applicable 12/10/2024 5:14 AM [facility] Blood Venipuncture / Unknown 12/10/2024 4:10 AM CDT 12/10/2024 5:09 AM CDT us Efraín Dey DO HEMATOLOGY ORDERABLES Final Result [facility] CLIA # [id number] [facility] [address] [place] [address] * (ABNORMAL) COMPREHENSIVE METABOLIC PANEL (12/10/2024 4:10 AM CDT) SODIUM 137 136 - 145 mmol/L 12/10/2024 5:46 AM CDT [facility] POTASSIUM 3.9 3.5 - 5.1 mmol/L 12/10/2024 5:46 AM [facility] CHLORIDE 100 98 - 107 mmol/L 12/10/2024 5:46 AM [facility] CO2 23 22 - 29 mmol/L 12/10/2024 5:46 AM [facility] CALCIUM 9.2 8.6 - 10.0 mg/dL 12/10/2024 5:46 AM [facility] BUN 13 6 - 20 mg/dL 12/10/2024 5:46 AM [facility] CREATININE 0.56 0.51 - 0.95 mg/dL 12/10/2024 5:46 AM [facility] GLUCOSE 482(HH) 74 - 99 mg/dL 12/10/2024 5:46 AM [facility] TOTAL PROTEIN 6.7 6.4 - 8.3 g/dL 12/10/2024 5:46 AM [facility] ALBUMIN 3.5 3.5 - 5.2 g/dL 12/10/2024 5:46 AM [facility] BILIRUBIN TOTAL <0.2 0.0 - 1.0 mg/dL 12/10/2024 5:46 AM [facility] ALKALINE PHOSPHATASE 146(H) 35 - 104 U/L 12/10/2024 5:46 AM [facility] AST 19 10 - 35 U/L 12/10/2024 5:46 AM [facility] Comment:Hemolysis present. R esult may be falsely elevated. ALT 24 <=35 U/L 12/10/2024 5:46 AM [facility] GFR >60 >=60 mL/min/1. 73 sq meter 12/10/2024 5:46 AM [facility] Comment:eGFR calculated with 2020 CKD-EPI equation. Vegetarian diet, extremely high or low muscle mass, and may affect results. Cystatin C with Glomerular Filtration Rate is a suitable alternative for these patients. ANION GAP 14 9 - 20 mmol/L 12/10/2024 5:46 AM CDT [facility] Blood Venipuncture / Unknown 12/10/2024 4:10 AM CDT 12/10/2024 5:12 AM CDT us Efraín Dey DO CHEMISTRY ORDERABLES Final R esult Performing Organization Address [facility] Co de Phone Number [facility] CLIA # [id number] [address] [address] * (ABNORMAL) MAGNESIUM LEVEL (12/10/2024 4:10 AM CDT) MAGNESIUM 1.5(L) 1.6 - 2.6 mg/dL 12/10/2024 5:46 AM CDT [facility] Blood Venipuncture / Unknown 12/10/2024 4:10 AM CDT 12/10/2024 5:12 AM CDT us Efraín Dey DO CHEMISTRY ORDERABLES Final R esult Performing Organization Address [facility] de Phone Number [facility] CLIA # [id number] [address] [address] * (ABNORMAL) PHOSPHORUS (12/10/2024 4:10 AM CDT) PHOSPHORUS 2.4(L) 2.5 - 4.5 mg/dL 12/10/2024 5:46 AM CDT [facility] Blood Venipuncture / Unknown 12/10/2024 4:10 AM CDT 12/10/2024 5:12 AM CDT us Efraín Dey DO CHEMISTRY ORDERABLES Final R esult Performing Organization Address City/[facility]/ZIP Co de Phone Number [facility] CLIA # [id number] [address] [facility] [place] [address] * (ABNORMAL) TROPONIN 6 HR, 5TH GEN (12/10/2024 4:10 AM CDT) TROPONIN T, 6 HR 5TH GEN 14(H) <11 ng/L 12/10/2024 5:46 AM CDT [facility] DELTA 6HR TROPONIN T -6 See Interp. 12/10/2024 5:46 AM CDT [facility] Blood Venipuncture / Unknown 12/10/2024 4:10 AM CDT 12/10/2024 5:12 AM CDT Narrative [facility] - 12/10/2024 5:46 AM CDT Troponin elevated. Delta indeterminate. Delay in collection of timed specimen beyond recommended collection interval. Results must be interpreted in clinical context. us Nicolle Vo DIRECTOR OF RETAIL OPERATIONS CHEMISTRY ORDERABLES Fi nal Result [facility] CLIA # [id number] [address] [address] * (ABNORMAL) POC GLUCOSE (12/10/2024 1:57 AM CDT) Pathologist [facility] GLUCOSE POC 315(H) 74 - 99 mg/dL 12/10/2024 1:57 AM CDT [facility] SPECIMEN SOURCE, GLUCOSE POC Capillary 12/10/2024 1:57 AM CDT [facility] Blood, whole 12/10/2024 1:57 AM CDT 12/10/2024 2:12 AM CDT us Efraín Dey DO POINT OF CARE TESTING Final Result Performing Organization Address City/[facility]/ZIP Co de Phone Number [facility] CLIA # [id number] [address] [address] [place] [address] * EXTRA TUBE (URINE [place]) (12/10/2024 1:25 AM CDT) Urine URINE SPECIMEN OBTAINED BY CLEAN CATCH PROCEDURE / Unknown Collection / Unknown 12/10/2024 1:25 AM CDT 12/10/2024 1:30 AM CDT Nicolle Vo DIRECTOR OF RETAIL OPERATIONS URINE ORDERABLES Final Result [facility] CLIA # [id number] [address] [address] * (ABNORMAL) URINALYSIS WITH REFLEX MICROSCOPIC (12/10/2024 1:25 AM CDT) COLOR UA Pale Yellow Pale to Dark Yellow 12/10/2024 1:51 AM T [facility] CLARITY UA Clear Clear 12/10/2024 1:51 AM T [facility] SPECIFIC GRAVITY UA 1.020 1.003 - 1.035 12/10/2024 1:51 AM T [facility] PH UA 5.5 5.0 - 8.0 12/10/2024 1:51 AM T [facility] LEUKOCYTE ESTERASE UA Negative Negative 12/10/2024 1:51 AM T [facility] NITRITE UA Negative Negative 12/10/2024 1:51 AM T [facility] PROTEIN UA Trace(A) Negative 12/10/2024 1:51 AM T [facility] GLUCOSE UA 2+(A) Negative 12/10/2024 1:51 AM T [facility] KETONES UA Negative Negative 12/10/2024 1:51 AM T [facility] UROBILINOGEN UA 0.2 <2.0 mg/dL 1:51 AM T [facility] BILIRUBIN UA Negative Negative 12/10/2024 1:51 AM T [facility] BLOOD UA Negative Negative 12/10/2024 1:51 AM CDT [facility] WBC UA 11-25(A) 0 - 2 /hpf 12/10/2024 1:51 AM CDT [facility] RBC UA 3-5(A) 0 - 2 /hpf 12/10/2024 1:51 AM CDT [facility] BACTERIA UA 3+(A) Negative /hpf 12/10/2024 1:51 AM CDT [facility] EPITHELIAL CELLS, URINE 0-5 0 - 5 /hpf 12/10/2024 1:51 AM CDT [facility] Urine URINE SPECIMEN OBTAINED BY CLEAN CATCH PROCEDURE / Unknown Collection / Unknown 12/10/2024 1:25 AM CDT 12/10/2024 1:30 AM CDT us Nicolle Vo DIRECTOR OF RETAIL OPERATIONS URINE ORDERABLES Final Result [facility] CLIA # [id number] [address] [place] [id number] * RESPIRATORY PATHOGEN PCR PANEL (12/10/2024 12:34 AM CDT) [facility] Respiratory Pathogen PCR Panel NOT DETECTED No respiratory pathogen nucleic acids detected. 12/10/2024 1:36 AM CDT [facility] COVID-19 PCR NOT DETECTED Not Detected 12/10/2024 1:36 AM CDT [facility] Upper Respiratory ENTIRE NASOPHARYNX / Unknown Collection / Unknown 12/10/2024 12:34 AM CDT 12/10/2024 12:39 AM CDT Narrative [facility] - 12/10/2024 1:36 AM CDT [employer] Respiratory Panel [...] Bordetella parapertussis Chlamydophila pneumoniae Mycoplasma pneumoniae us Efraín Dey DO MICROBIOLOGY - GENERAL ORDER JANAY Final Result Performing Organization Address [facility] Co de Phone Number [facility] [employer] [facility] # [id number] [address] [id number] * LACTIC ACID (12/09/2024 10:54 PM CDT) LACTIC ACID 1.9 <=2.0 mmol/L 12/09/2024 11:23 PM CDT [facility] Blood Venipuncture / Unknown 12/09/2024 10:54 PM CDT 12/09/2024 10:59 PM CDT us Mikey Rudolph MD CHEMISTRY ORDERABLES Fin al Result Performing Organization Address [facility] Co de Phone Number [facility] CLIA # [id number] [address] [place] [id number] * (ABNORMAL) TROPONIN 2 HR, 5TH GEN (12/09/2024 10:54 PM CDT) TROPONIN T, 2 HR 5TH GEN 23(H) <=10 ng/L 12/10/2024 12:03 AM CDT [facility] DELTA 2HR TROPONIN T 3 See Interp. 12/10/2024 12:03 AM CDT [facility] Blood Venipuncture / Unknown 12/09/2024 10:54 PM CDT 12/09/2024 11:03 PM CDT Narrative [facility] - 12/10/2024 12:03 AM CDT Troponin elevated. Delta not changing. Delay in collection of timed specimen beyond recommended collection interval. Results must be interpreted in clinical context. Nicolle Vo NP CHEMISTRY ORDERABLES Fi nal Result [facility] CLIA # [id number] [id number] [place] [address] * CTA CHEST W AND/OR WO CONTRAST (12/09/2024 10:39 PM CDT) Anatomical Region Laterality Modality Chest Computed Tomogra phy 12/09/2024 10:3 2 PM CDT Impressions 12/10/2024 8:04 AM CDT IMPRESSION: Please see below. Exam: CTA CHEST W AND/OR WO CONTRAST Date/Time of Exam: 12/09/2024 10:39 PM REASON FOR EXAM: Pulmonary embolism (PE) suspected, high prob. DIAGNOSIS: Acute respiratory failure with hypercapnia (CMS/HCC); COPD with exacerbation (CMS/HCC); Chest pain, unspecified type; Infiltrate of lung present on chest x-ray. Technique: CTA of the chest was performed prior to and/or following the administration of intravenous contrast. Post-processing was performed, including sagittal and coronal reformations and 3-D reconstruction. Contrast (if used): 85 ml Isovue 300 Findings: Comparison is made to the prior exam performed 11/27/2024. The examination is limited by artifact from the patient's arm by their side and motion artifact. No evidence of central pulmonary filling defect is identified. Evaluation of the segmental and subsegmental branches is severely limited. There is no pulmonary enlargement or right ventricular strain to suggest pulmonary arterial hypertension. Coronary artery disease is noted. The heart size is normal. Mild atherosclerotic changes in the thoracic aorta are noted. There is minimal pericardial thickening in the lung bases with some adjacent atelectasis. There is masslike round consolidation in the left lung base which is unchanged since 12/17/2024. The central airways are patent. There is no pneumothorax or pleural effusion. No pathologic mediastinal or hilar adenopathy is identified. The liver appears enlarged but is incompletely evaluated. There is a ventral hernia containing the anterior aspect of the left hepatic lobe. Imaged abdominal contents are otherwise unremarkable. ACF changes in thoracic spondylosis are again noted. IMPRESSION: Significantly limited examination due to motion artifact and streak artifact from the patient's right arm either side. 1. No evidence of central pulmonary embolus. Evaluation of the segmental and subsegmental branches is really nondiagnostic. Minimal peribronchial thickening in the lung bases could represent mild chronic bronchitis. 2. Masslike rounded consolidation in the left lung base, grossly unchanged since July, likely representing a chronic process. 3. Suspected hepatomegaly. 4. Ventral hernia containing the anterior left hepatic lobe. 5. Additional incidental findings as above. Narrative Procedure Note Meir Acosta MD - 12/10/2024 IMPRESSION: Please see below. Exam: CTA CHEST W AND/OR WO CONTRAST Date/Time of Exam: 12/09/2024 10:39 PM REASON FOR EXAM: Pulmonary embolism (PE) suspected, high prob. DIAGNOSIS: Acute respiratory failure with hypercapnia (CMS/HCC); COPD with exacerbation (CMS/HCC); Chest pain, unspecified type; Infiltrate of lung present on chest x-ray. Technique: CTA of the chest was performed prior to and/or following the administration of intravenous contrast. Post-processing was performed, including sagittal and coronal reformations and 3-D reconstruction. Contrast (if used): 85 ml Isovue 300 Findings: Comparison is made to the prior exam performed 11/27/2024. The examination is limited by artifact from the patient's arm by their side and motion artifact. No evidence of central pulmonary filling defect is identified. Evaluation of the segmental and subsegmental branches is severely limited. There is no pulmonary enlargement or right ventricular strain to suggest pulmonary arterial hypertension. Coronary artery disease is noted. The heart size is normal. Mild atherosclerotic changes in the thoracic aorta are noted. There is minimal pericardial thickening in the lung bases with some adjacent atelectasis. There is masslike round consolidation in the left lung base which is unchanged since 12/17/2024. The central airways are patent. There is no pneumothorax or pleural effusion. No pathologic mediastinal or hilar adenopathy is identified. The liver appears enlarged but is incompletely evaluated. There is a ventral hernia containing the anterior aspect of the left hepatic lobe. Imaged abdominal contents are otherwise unremarkable. ACF changes in thoracic spondylosis are again noted. IMPRESSION: Significantly limited examination due to motion artifact and streak artifact from the patient's right arm either side. 1. No evidence of central pulmonary embolus. Evaluation of the segmental and subsegmental branches is really nondiagnostic. Minimal peribronchial thickening in the lung bases could represent mild chronic bronchitis. 2. Masslike rounded consolidation in the left lung base, grossly unchanged since July, likely representing a chronic process. 3. Suspected hepatomegaly. 4. Ventral hernia containing the anterior left hepatic lobe. 5. Additional incidental findings as above. Mikey Rudolph MD CT ORDERABLES Final Re sult * PROTIME-INR (12/09/2024 8:12 PM CDT) PROTIME 14.4 12.7 - 14.9 Seconds 12/09/2024 8:25 PM CDT [facility] INR 1.1 0.8 - 1.2 12/09/2024 8:25 PM CDT [facility] Blood Venipuncture / Unknown 12/09/2024 8:12 PM CDT 12/09/2024 8:22 PM CDT Narrative [facility] - 12/09/2024 8:25 PM CDT Expected Values for INR: DVT/PE [...] Goal INR 2.5; range 2.0 - 3.0 Mikey Rudolph MD HEMATOLOGY ORDERABLES Fi nal Result [facility] CLIA # [id number] [address] [facility] [place] [address] * (ABNORMAL) D-DIMER (12/09/2024 8:12 PM CDT) D-DIMER QUANT 0.57(H) 0.00 - 0.50 ug/mL FEU 12/09/2024 8:25 PM CDT [facility] Blood Venipuncture / Unknown 12/09/2024 8:12 PM CDT 12/09/2024 8:22 PM CDT [facility] - 12/09/2024 8:25 PM CDT D-Dimer assay cutoff value for [...] FEU 71-80 years: 0.71-0.80 ug/mL FEU us Mikey Rudolph MD HEMATOLOGY ORDERABLES Fi nal Result [facility] CLIA # [id number] [address] [place] [address] * (ABNORMAL) BLOOD GAS VENOUS (12/09/2024 7:48 PM CDT) Pathologist [facility] PH BLOOD POC 7.34 7.32 - 7.43 12/09/2024 7:48 PM CDT [facility] PCO2 POC 50 38 - 50 mm Hg 12/09/2024 7:48 PM CDT [facility] PO2 POC 46(H) 25 - 40 mm Hg 12/09/2024 7:48 PM CDT [facility] HCO3 (CALC) POC 27 22 - 29 mmol/L 12/09/2024 7:48 PM [facility] HEMOGLOBIN POC 12.1 12.0 - 18.0 g/dL 12/09/2024 7:48 PM [facility] BASE EXCESS POC 1 -2 - 3 mmol/L 12/09/2024 7:48 PM [facility] O2 SATURATION POC 77(H) 40 - 70 % 12/09/2024 7:48 PM [facility] SODIUM POC 138 135 - 145 mmol/L 12/09/2024 7:48 PM [facility] POTASSIUM POC 3.8 3.5 - 4.9 mmol/L 12/09/2024 7:48 PM [facility] HEMATOCRIT POC 36(L) 38 - 51 % 12/09/2024 7:48 PM [facility] PH TEMP CORRECT 7.34 7.32 - 7.43 12/10/19 7:48 PM [facility] PCO2 TEMP CORRECT 50 38 - 50 mm Hg 12/09/2024 7:48 PM [facility] PO2 TEMP CORRECT 46(H) 25 - 40 mm Hg 12/09/2024 7:48 PM [facility] SPECIMEN SOURCE, GASES POC Venous 12/09/2024 7:48 PM [facility] CALCIUM IONIZED POC 5.0 4.8 - 5.2 mg/dL 12/09/2024 7:48 PM [facility] TCO2 (CALC) POC 29(H) 22 - 26 mmol/L 12/09/2024 7:48 PM [facility] PUNC SITE POC No Charge 12/09/2024 7:48 PM [facility] VENT MODE POC BiPAP 12/09/2024 7:48 PM [facility] PATIENT'S TEMPERATURE POC 37.0 degrees 12/09/2024 7:48 PM [facility] Blood, venous 12/09/2024 7:4 8 PM CDT 12/09/2024 7:49 PM CDT us Mikey Rudolph MD ABG ORDERABLES Final Re sult [facility] # [id number] [address] [address] * EKG 12-LEAD (12/09/2024 6:58 PM CDT) 12/09/2024 6:58 PM CDT Narrative INTERFACE SYSTEM - 12/10/2024 7:17 AM CDT [address] [address] Test Date: 2024-12-09 Pat Name: LE DIAZ Department: 11 Room: 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[place] [id number] : 1965 Requested By: Order Number: [id number] Jessica VALLADARES: Kyler Helm Measurements Intervals [place] Rate: 110 P: 10 OR: 136 QRS: 38 QRSD: 84 T: 1 QT: 354 QTc: 479 Interpretive Statements Sinus tachycardia Inferior infarct, age undetermined Abnormal ECG Electronically Signed On 12-10-2024 7:17:36 CDT by Kyler Helm Procedure Note Kyler Helm MD - 12/10/[address] [address] Test Date: 2024-12-09 Pat Name: LE CLAUDIOKINS Department: 11 Room: 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[place] [id number] : 1965 Requested By: Order Number: [id number] Jessica VALLADARES: Kyler Helm Measurements Intervals [place] Rate: 110 P: 10 OR: 136 QRS: 38 QRSD: 84 T: 1 QT: 354 QTc: 479 Interpretive Statements Sinus tachycardia Inferior infarct, age undetermined Abnormal ECG Electronically Signed On 12-10-2024 7:17:36 CDT by Kyler Helm us Nicolle Vo DIRECTOR OF RETAIL OPERATIONS ECG ORDERABLES Final R esult INTERFACE SYSTEM Refer to clinic/hospital department * XR CHEST PA OR AP 1 VW (12/09/2024 6:27 PM CDT) Anatomical Region Laterality Modality Chest Computed Radiogr aphy 12/09/2024 6:27 PM CDT Impressions 12/09/2024 8:43 PM CDT IMPRESSION: Subtle streaky airspace disease in left lung base is nonspecific and could reflect atelectasis or an acute infiltrate. Narrative 12/09/2024 8:43 PM CDT EXAM: XR CHEST PA OR AP 1 VW DATE/TIME OF EXAM: 12/09/2024 6:27 PM REASON FOR EXAM: Shortness of Breath SOB DIAGNOSIS: See Reason for Exam COMPARISON: 12/01/2024 FINDINGS: - Lines/tubes: None. - Cardiomediastinal: Contours are within normal limits. - Lungs/pleura: Subtle interstitial/streaky opacity in the left lung base. Within the limitations of body habitus the lungs otherwise appear grossly clear. Hemidiaphragms are well visualized; no appreciable pleural effusion or pneumothorax. - Bones and soft tissues: No acute abnormalities. Fusion hardware lower cervical spine. - Additional comments: None. Procedure Note Curtis Nix MD - 12/09/2024 EXAM: XR CHEST PA OR AP 1 VW DATE/TIME OF EXAM: 12/09/2024 6:27 PM REASON FOR EXAM: Shortness of Breath SOB DIAGNOSIS: See Reason for Exam COMPARISON: 12/01/2024 FINDINGS: - Lines/tubes: None. - Cardiomediastinal: Contours are within normal limits. - Lungs/pleura: Subtle interstitial/streaky opacity in the left lung base. Within the limitations of body habitus the lungs otherwise appear grossly clear. Hemidiaphragms are well visualized; no appreciable pleural effusion or pneumothorax. - Bones and soft tissues: No acute abnormalities. Fusion hardware lower cervical spine. - Additional comments: None. IMPRESSION: Subtle streaky airspace disease in left lung base is nonspecific and could reflect atelectasis or an acute infiltrate. us Nicolle Vo NP DIAGNOSTIC IMAGING [facility] Final Result * MAGNESIUM LEVEL (12/09/2024 6:09 PM CDT) Pathologist [facility] MAGNESIUM 1.7 1.6 - 2.6 mg/dL 12/09/2024 7:11 PM CDT [facility] Blood Venipuncture / Unknown 12/09/2024 6:09 PM CDT 12/09/2024 6:29 PM CDT Mikey Rudolph MD CHEMISTRY ORDERABLES Fin al Result Performing Organization Address [facility] Co de Phone Number [facility] CLIA # [id number] [address] [address] * (ABNORMAL) BRAIN NATRIURETIC PEPTIDE, BNP OR PROBNP (12/09/2024 6:09 PM CDT) Pathologist [facility] PROBNP, N TERMINAL 201(H) 0 - 125 pg/mL 12/09/2024 7:11 PM CDT [facility] Comment: INTERPRETIVE COMMENT based on [...] years: >1800 pg/mL Blood Venipuncture / Unknown 12/09/2024 6:09 PM CDT 12/09/2024 6:29 PM CDT us Mikey Rudolph MD CHEMISTRY ORDERABLES Fin al Result Performing Organization Address [facility]/ZIP Co de Phone Number [facility] CLIA # [id number] [address] [address] * (ABNORMAL) TROPONIN BASELINE, 5TH GEN (12/09/2024 6:09 PM CDT) [facility] TROPONIN T, BASELINE 5TH GEN 20(H) <=10 ng/L 12/09/2024 7:11 PM CDT [facility] Blood Venipuncture / Unknown 12/09/2024 6:09 PM CDT 12/09/2024 6:29 PM CDT Narrative [facility] - 12/09/2024 7:11 PM CDT Troponin elevated. Nicolle Vo NP CHEMISTRY ORDERABLES nal Result [facility] CLIA # [id number] [facility] [address] * (ABNORMAL) COMPREHENSIVE METABOLIC PANEL (12/09/2024 6:09 PM CDT) [facility] SODIUM 137 136 - 145 mmol/L 12/09/2024 7:11 PM CDT [facility] POTASSIUM 4.0 3.5 - 5.1 mmol/L 12/09/2024 7:11 PM CDT [facility] CHLORIDE 100 98 - 107 mmol/L 12/09/2024 7:11 PM CDT [facility] CO2 21(L) 22 - 29 mmol/L 12/09/2024 7:11 PM CDT [facility] CALCIUM 9.5 8.6 - 10.0 mg/dL 12/09/2024 7:11 PM CDT [facility] BUN 12 6 - 20 mg/dL 12/09/2024 7:11 PM CDT [facility] CREATININE 0.53 0.51 - 0.95 mg/dL 12/09/2024 7:11 PM CDT [facility] GLUCOSE 296(H) 74 - 99 mg/dL 12/09/2024 7:11 PM CDT [facility] TOTAL PROTEIN 6.9 6.4 - 8.3 g/dL 12/09/2024 7:11 PM [facility] ALBUMIN 3.5 3.5 - 5.2 g/dL 12/09/2024 7:11 PM T [facility] BILIRUBIN TOTAL 0.2 0.0 - 1.0 mg/dL 12/09/2024 7:11 PM CDT [facility] ALKALINE PHOSPHATASE 144(H) 35 - 104 U/L 12/09/2024 7:11 PM T [facility] AST 21 10 - 35 U/L 12/09/2024 7:11 PM [facility] ALT 25 <=35 U/L 12/09/2024 7:11 PM [facility] GFR >60 >=60 mL/min/1.7 3 sq meter 12/09/2024 7:11 PM [facility] Comment:eGFR calculated with 2020 CKD-EPI equation. Vegetarian diet, extremely high or low muscle mass, and may affect results. Cystatin C with Glomerular Filtration Rate is a suitable alternative for these patients. ANION GAP 16 9 - 20 mmol/L 12/09/2024 7:11 PM [facility] Blood Venipuncture / Unknown 12/09/2024 6:09 PM CDT 12/09/2024 6:29 PM CDT us Nicolle Vo NP CHEMISTRY ORDERABLES Fi nal Result [facility] CLIA # [id number] [address] [place] [address] * (ABNORMAL) CBC WITH DIFFERENTIAL (12/09/2024 6:09 PM CDT) WBC 7.1 4.8 - 10.8 K/uL 12/09/2024 7:03 PM [facility] NRBCS 1(H) <1 % 12/09/2024 7:03 PM [facility] RBC 3.91(L) 4.20 - 5.40 M/uL 12/09/2024 7:03 PM [facility] HEMOGLOBIN 11.6(L) 12.0 - 16.0 g/dL 12/09/2024 7:03 PM [facility] HEMATOCRIT 38.2 36.0 - 46.0 % 12/09/2024 7:03 PM [facility] MCV 97.7 84.0 - 103.0 fL 12/09/2024 7:03 PM [facility] MCH 29.7 27.0 - 34.0 pg 12/09/2024 7:03 PM [facility] MCHC 30.4 30.0 - 35.0 g/dL 12/09/2024 7:03 PM [facility] PLATELETS 178 140 - 440 K/uL 12/09/2024 7:03 PM [facility] MPV 11.6 8.9 - 12.8 fL 12/09/2024 7:03 PM [facility] RDW 18.3(H) 11.0 - 14.5 % 12/09/2024 7:03 PM [facility] RDW-STDEV 65.1(H) 37.0 - 54.0 fL 12/09/2024 7:03 PM [facility] NEUTROPHILS 51 42 - 75 % 12/09/2024 7:03 PM [facility] LYMPHOCYTES 31 24 - 44 % 12/09/2024 7:03 PM [facility] MONOCYTES 15(H) 2 - 10 % 12/09/2024 7:03 PM [facility] EOSINOPHILS 1 0 - 7 % 12/09/2024 7:03 PM [facility] BASOPHILS 0 0 - 1 % 12/09/2024 7:03 PM [facility] IMMATURE GRANULOCYTES 1 0 - 2 % 12/09/2024 7:03 PM CDT [facility] NEUTROPHIL ABSOLUTE 3.66 2.00 - 8.00 K/uL 12/09/2024 7:03 PM CDT [facility] LYMPHOCYTE ABSOLUTE 2.23 1.20 - 4.00 K/uL 12/09/2024 7:03 PM T [facility] MONOCYTE ABSOLUTE 1.10(H) 0.10 - 0.60 K/uL 12/09/2024 7:03 PM CDT [facility] EOSINOPHIL ABSOLUTE 0.05 0.00 - 0.70 K/uL 12/09/2024 7:03 PM CDT [facility] BASOPHILS ABSOLUTE 0.03 0.00 - 0.20 K/uL 12/09/2024 7:03 PM CDT [facility] IMMATURE GRANULOCYTES ABSOLUTE 0.06 0.00 - 0.10 K/uL 12/09/2024 7:03 PM T [facility] SMEAR REVIEWED: NA - Not Applicable 12/09/2024 7:03 PM CDT [facility] Blood Venipuncture / Unknown 12/09/2024 6:09 PM CDT 12/09/2024 6:28 PM CDT us Nicolle Vo NP HEMATOLOGY ORDERABLES F inal Result [facility] [id number] [address] [place] [address] documented in this encounter Visit Diagnoses Diagnosis COPD exacerbation ([facility])- Primary Obstructive chronic bronchitis with exacerbation Acute respiratory failure with hypercapnia ([facility]) Acute respiratory failure COPD with exacerbation ([facility]) Obstructive chronic bronchitis with exacerbation Chest pain, unspecified type Infiltrate of lung present on chest x-ray Morbid obesity due to excess calories ([facility]) Chronic combined systolic and diastolic congestive heart failure ([facility]/HCC) Chronic combined systolic and diastolic heart failure Chronic respiratory failure with hypoxia, on home O2 therapy ([facility]) CAD (coronary atherosclerotic disease) Coronary atherosclerosis of unspecified type of vessel, [place] sal[place] or graft Insulin dependent type 2 diabetes mellitus ([facility]) Type II or unspecified type diabetes mellitus without mention of complication, not stated as uncontrolled History of pulmonary embolism Personal history of pulmonary embolism Bipolar affective disorder ([facility]/HCC) Bipolar disorder, unspecified Type 2 diabetes mellitus without complication, without long-term current use of insulin (CMS/HCC) Hypertension Unspecified essential hypertension Opioid dependence ([facility]) Opioid type dependence, unspecified Essential hypertension Unspecified essential hypertension Infiltrate of lung present on chest x-ray documented in this encounter Administered Medications Inactive Administered Medications - up to 3 most recent administrations Medication Order MAR Action Action Date Dose Rate Site acetaminophen (OFIRMEV) 10 mg/mL injection 1,000 mg 1,000 mg, IV, ONE TIME ONLY, 1 dose, On Thu12/09/24 at 2030, Stat New Bag 12/09/2024 11:01 PM CDT 1,000 mg 400 mL/hr acetaminophen (TYLENOL) tablet 650 mg 650 mg, Oral, EVERY 6 HOURS PRN, Starting on Thu12/09/24 at 2341, Until Thu12/13/24 at 1410, Other (See Comment), See admin instructions, Routine Given 12/10/2024 10:55 AM CDT 650 mg aluminum - magnesium - simethicone (MYLANTA) 200-200-20 mg/5 mL oral suspension 30 mL 30 mL, Oral, EVERY 2 HOURS PRN, Starting on Thu12/09/24 at 2342, Until Thu12/13/24 at 1410, Indigestion, Routine aspirin (CARTER CHEWABLE) chewable tablet 81 mg 81 mg, Oral, DAILY, First dose on 12/10/24 at 0900, Until Discontinued, Routine, Previous Med: aspirin (CARTER CHEWABLE) 81 mg Tablet, Chewable - Orig Sig - Take 81 mg by mouth daily. Given 12/13/2024 8:42 AM CDT 81 mg Given 12/12/2024 8:42 AM CDT 81 mg Given 12/11/2024 8:21 AM CDT 81 mg atorvastatin (LIPITOR) tablet 40 mg 40 mg, Oral, DAILY AT BEDTIME, First dose on 12/10/24 at 0030, Until Discontinued, Routine, Previous Med: atorvastatin (LIPITOR) 40 mg tablet - Orig Sig - Take 40 mg by mouth daily at bedtime. Given 12/12/2024 9:57 PM CDT 40 mg Given 12/11/2024 9:07 PM CDT 40 mg Given 12/10/2024 10:21 PM CDT 40 mg cefePIME (MAXIPIME) 2,000 mg in sodium chloride 0.9% 50 mL IVPB (MBP) 2,000 mg, IV, EVERY 12 HOURS (BlD), 14 doses, First dose (after last modification) on Thu12/10/24 at 0900, Last dose on Thu12/16/24 at 2100, Routine, Antibiotic Indication: Other: Enter in Comments, Antibiotic Indication: COPD New Bag 12/13/2024 8:48 AM CDT 2,000 mg 118 mL/hr Restarted 12/12/2024 10:47 PM CDT 118 mL/hr Restarted 12/12/2024 10:47 PM CDT 118 mL/hr cefTRIAXone (ROCEPHIN) 2,000 mg in sodium chloride 0.9% 50 mL IVPB (MBP) 2,000 mg, IV, ONE TIME ONLY, 1 dose, On Thu12/09/24 at 2215, Routine, Antibiotic Indication: Pneumonia - Community-acquired(CAP) New Bag 12/09/2024 10:56 PM CDT 2,000 mg 118 mL/hr dextrose 5 % - sodium chloride 0.9 % infusion IV, at 40 mL/hr, SEE ADMIN INSTRUCTIONS, Starting on Thu12/09/24 at 2343, Until Thu12/13/24 at 1410, Routine dextrose 5 % - sodium chloride 0.9 % infusion IV, at 40 mL/hr, SEE ADMIN INSTRUCTIONS, Starting on Thu12/10/24 at 1217, Until Thu12/13/24 at 1410, Routine dextrose 5 % - sodium chloride 0.9 % infusion IV, at 60 mL/hr, CONTINUOUS, Starting on Thu12/10/24 at 1230, Until Thu12/13/24 at 1410, Routine New Bag 12/11/2024 7:14 AM CDT 60 mL/hr dextrose 5 % in water 250 mL flush bag 25 mL 25 mL, IV, SEE ADMIN INSTRUCTIONS, Starting on Thu12/09/24 at 2341, Until Thu12/13/24 at 1410, Routine dextrose 50% (D50) syringe 12.5 Gram 12.5 Gram, IV, SEE ADMIN INSTRUCTIONS, Starting on Thu12/09/24 at 2343, Until Thu12/13/24 at 1410, Routine dextrose 50% (D50) syringe 25 Gram 25 Gram, IV, SEE ADMIN INSTRUCTIONS, Starting on Thu12/09/24 at 2343, Until Thu12/13/24 at 1410, Routine doxycycline hyclate (VIBRAMYCIN) 100 mg in sodium chloride 0.9% 100 mL IVPB (MBP) 100 mg, IV, ONE TIME ONLY, 1 dose, On Thu12/09/24 at 2230, Routine, Antibiotic Indication: Pneumonia - Community-acquired(CAP) New Bag 12/10/2024 2:00 AM CDT 100 mg 115 mL/hr enoxaparin (LOVENOX) injection 40 mg 40 mg, subCUT, EVERY 24 HOURS (DAILY), First dose on 12/10/24 at 0015, Until Discontinued, Routine, Indication: Prophylaxis of VTE, Dose to be adjusted per facility protocol? Yes Given 12/10/2024 1:57 AM CDT 40 mg Abdomen, Left Upper Quadrant furosemide (LASIX) tablet 80 mg 80 mg, Oral, TWO TIMES DAILY, First dose on 12/10/24 at 0030, Until Discontinued, Routine, Previous Med: furosemide (LASIX) 80 mg tablet - Orig Sig - Take 1 Tablet (80 mg) by mouth 2 times daily. Given 12/13/2024 8:41 AM CDT 80 mg Given 12/12/2024 8:42 AM CDT 80 mg Given 12/11/2024 9:07 PM CDT 80 mg glucagon HCL 1 mg/mL injection 1 mg 1 mg, IM, SEE ADMIN INSTRUCTIONS, Starting on Thu12/09/24 at 2343, Until Thu12/13/24 at 1410, Routine guaiFENesin (ROBITUSSIN) 100 mg/5 mL oral solution 200 mg 200 mg, Oral, EVERY 4 HOURS PRN, Starting on Thu12/09/24 at 2342, Until Thu12/13/24 at 1410, Other (See Comment), to thin secretions, Routine heparin in 0.45% NaCl 25,000 unit/250 mL infusion 17 Units/kg/hr 73.8 kg Adjusted weight (12.546 mL/hr, rounded to 12.5 mL/hr), IV, TITRATE, Starting on Thu12/10/24 at 1600, Until Thu12/12/24 at 0810, Indication: Acute or Chronic VTE/PE/DVT, Dosing by: PER PROTOCOL: Delegate to facility protocol per indication, Re-bolus within Protocol? No, titrate infusion ONLY Rate Verify 12/12/2024 6:19 AM CDT 17 Units/kg/hr 12.5 mL/hr Rate Change 12/12/2024 4:58 AM CDT 17 Units/kg/hr 12.5 mL/ hr Restarted 12/12/2024 3:38 AM CDT 20 Units/kg/hr 14.8 mL/h r HYDROcodone-acetaminophen (NORCO) 5-325 mg per tablet 1 Tablet 1 Tablet, Oral, EVERY 8 HOURS PRN, Starting on Thu12/12/24 at 1218, Until Thu12/13/24 at 1410, Pain (See admin instructions), Routine Given 12/13/2024 7:14 AM CDT 1 Tablet Given 12/12/2024 11:28 PM CDT 1 Tablet Given 12/12/2024 3:28 PM CDT 1 Tablet HYDROcodone-acetaminophen (NORCO) 7.5-325 mg per tablet 1 Tablet 1 Tablet, Oral, EVERY 6 HOURS PRN, Starting on 12/10/24 at 1154, Until Thu12/12/24 at 1218, Pain (See admin instructions), Routine Given 12/12/2024 8:42 AM CDT 1 Tablet Given 12/11/2024 11:56 PM CDT 1 Tablet Given 12/11/2024 5:46 PM CDT 1 Tablet insulin glargine-yfgn injection 10 Units 10 Units, subCUT, ONE TIME ONLY, 1 dose, On Thu12/10/24 at 0630, Routine Given 12/10/2024 6:09 AM CDT 10 Units Abdomen, Right Lower Quadrant insulin glargine-yfgn injection 10 Units 10 Units, subCUT, ONE TIME ONLY, 1 dose, On Thu12/10/24 at 1230, Routine Given 12/10/2024 12:55 PM CDT 10 Units Abdomen, Right Lower Quadrant insulin glargine-yfgn injection 25 Units 25 Units, subCUT, TWO TIMES DAILY, First dose on 12/11/24 at 1130, Until Discontinued, Routine Given 12/11/2024 12:09 PM CDT 25 Units Arm, Right Upper insulin glargine-yfgn injection 32 Units 32 Units, subCUT, TWO TIMES DAILY, First dose (after last modification) on Thu12/11/24 at 2100, Until Discontinued, Routine Given 12/11/2024 9:08 PM CDT 32 Units Arm, Right Upper insulin glargine-yfgn injection 38 Units 38 Units, subCUT, TWO TIMES DAILY, First dose (after last modification) on 12/12/24 at 0900, Until Discontinued, Routine Given 12/12/2024 8:51 AM CDT 38 Units Arm, Right insulin glargine-yfgn injection 40 Units 40 Units, subCUT, DAILY AT BEDTIME, First dose on [facility] 12/10/24 at 2100, Until Discontinued, Routine, Previous Med: Lantus Solostar U-100 Insulin 100 unit/mL (3 mL) solution for injection - Orig Sig - Inject 40 Units by subcutaneous injection daily at bedtime. Given 12/10/2024 10:43 PM CDT 40 Units Abdomen, Left Lower Quadrant insulin glargine-yfgn injection 45 Units 45 Units, subCUT, TWO TIMES DAILY, First dose (after last modification) on 12/12/24 at 2100, Until Discontinued, Routine Given 12/13/2024 8:43 AM CDT 45 Units Arm, Left Upper Given 12/12/2024 10:09 PM CDT 45 Units A rm, Right Upper insulin glargine-yfgn injection 5 Units 5 Units, subCUT, ONE TIME ONLY, 1 dose, On 12/10/24 at 0900, Routine Given 12/10/2024 9:42 AM CDT 5 Units Abdomen, Right Lower Quadrant insulin glargine-yfgn injection 5 Units 5 Units, subCUT, ONE TIME ONLY, 1 dose, On 12/12/24 at 1230, Routine Given 12/12/2024 1:37 PM CDT 5 Units Arm, Left insulin lispro (HumaLOG,ADMELOG) injection 0-18 Units 0-18 Units, subCUT, THREE TIMES DAILY WITH MEALS, First dose on 12/11/24 at 1230, Until Discontinued, Routine Given 12/13/2024 11:42 AM CDT 6 Units Arm, Left Upper Given 12/12/2024 5:35 PM CDT 12 Units Ar m, Right Given 12/12/2024 11:54 AM CDT 12 Units A rm, Left insulin lispro (HumaLOG,ADMELOG) injection 0-6 Units 0-6 Units, subCUT, THREE TIMES DAILY WITH MEALS, First dose on 12/10/24 at 0800, Until Discontinued, Routine Given 12/10/2024 12:11 PM CDT 6 Units Abdomen, Right Lower Quadrant Given 12/10/2024 9:43 AM CDT 6 Units Ab domen, Right Lower Quadrant insulin lispro (HumaLOG,ADMELOG) injection 0-9 Units 0-9 Units, subCUT, DAILY AT BEDTIME, First dose on 12/11/24 at 2100, Until Discontinued, Routine Given 12/12/2024 10:09 PM CDT 9 Units Arm, Right Upper Given 12/11/2024 9:05 PM CDT 9 Units Ar m, Right Upper insulin lispro (HumaLOG,ADMELOG) injection 0-9 Units 0-9 Units, subCUT, DAILY 0200, First dose on Thu12/12/24 at 0200, Until Discontinued, Routine Given 12/12/2024 2:26 AM CDT 6 Units Arm, Left Upper insulin lispro (HumaLOG,ADMELOG) injection 10 Units 10 Units, subCUT, ONE TIME ONLY, 1 dose, On Thu12/12/24 at 1200, Routine Given 12/12/2024 11:53 AM CDT 10 Units Arm, Left insulin lispro (HumaLOG,ADMELOG) injection 20 Units 20 Units, subCUT, ONE TIME ONLY, 1 dose, On 12/10/24 at 0900, Routine Given 12/10/2024 9:44 AM CDT 20 Units Abdomen, Right Lower Quadrant insulin lispro (HumaLOG,ADMELOG) injection 20 Units 20 Units, subCUT, ONE TIME ONLY, 1 dose, On Thu12/10/24 at 1630, Routine Given 12/10/2024 4:18 PM CDT 20 Units Arm, Left insulin lispro (HumaLOG,ADMELOG) injection 25 Units 25 Units, subCUT, THREE TIMES DAILY WITH MEALS, First dose (after last modification) on Thu12/12/24 at 1730, Until Discontinued, RoutineIndications:In addition to sliding scale lispro Given 12/13/2024 11:43 AM CDT 25 Units Arm, Left Upper Given 12/13/2024 8:44 AM CDT 25 Units Ab domen, Left Lower Quadrant Given 12/12/2024 5:36 PM CDT 25 Units Ar m, Right insulin lispro (HumaLOG,ADMELOG) injection 4 Units 4 Units, subCUT, ONE TIME ONLY, 1 dose, On 12/11/24 at 0515, Routine Given 12/11/2024 5:23 AM CDT 4 Units Arm, Right Upper insulin lispro (HumaLOG,ADMELOG) injection 5 Units 5 Units, subCUT, ONE TIME ONLY, 1 dose, On 12/12/24 at 0315, Routine Given 12/12/2024 4:10 AM CDT 5 Units Arm, Right Upper insulin lispro (HumaLOG,ADMELOG) injection 8 Units 8 Units, subCUT, ONE TIME ONLY, 1 dose, On 12/10/24 at 0545, Routine Given 12/10/2024 5:33 AM CDT 8 Units Abdomen, Right Lower Quadrant insulin lispro (HumaLOG,ADMELOG) injection 8 Units 8 Units, subCUT, ONE TIME ONLY, 1 dose, On 12/10/24 at 2230, Routine Given 12/10/2024 10:44 PM CDT 8 Units Abdomen, Left Lower Quadrant insulin regular (HumuLIN R,NovoLIN R) 1 Units/mL in sodium chloride 0.9 % infusion 0-25 Units/hr (0-25 mL/hr), IV, TITRATE, Starting on 12/10/24 at 1230, Until 12/11/24 at 1128 Rate Change 12/11/2024 9:19 AM CDT 25 Units/hr 25 mL/hr New Bag 12/11/2024 8:06 AM CDT 21 Units/hr 21 mL/hr Rate Verify 12/11/2024 6:17 AM CDT 21 Units/hr 21 mL/hr iopamidoL (ISOVUE-300) 61% injection (drawn from multi-use bulk pack) 85 mL 85 mL, IV, INTRA-PROCEDURE ONCE, 1 dose, Starting on 12/09/24 at 2222, Until Thu12/09/24 at 2234, Routine Contrast Given 12/09/2024 10:34 PM CDT 85 mL ipratropium-albuteroL (DUONEB) 0.5 mg-3 mg(2.5 mg base)/3 mL inhalation solution 3 mL 3 mL, Inhalation, ONE TIME ONLY RESPIRATORY, 1 dose, On Thu12/09/24 at 2215, Routine Given 12/09/2024 10:18 PM CDT 3 mL ipratropium-albuteroL (DUONEB) 0.5 mg-3 mg(2.5 mg base)/3 mL inhalation solution 3 mL 3 mL, Inhalation, EVERY 6 HOURS PRN RESPIRATORY, Starting on Thu12/10/24 at 0415, Until Thu12/13/24 at 1410, Shortness of Breath, Routine isosorbide mononitrate (IMDUR) SR 24 hour tablet 30 mg 30 mg, Oral, DAILY, First dose on Thu12/10/24 at 0900, Until Discontinued, Routine, Previous Med: isosorbide mononitrate (IMDUR) 30 mg Extended Release 24 hour tablet - Orig Sig - TAKE 1 TABLET BY MOUTH EVERY DAY Given 12/13/2024 8:41 AM CDT 30 mg Given 12/12/2024 8:42 AM CDT 30 mg Given 12/11/2024 8:21 AM CDT 30 mg magnesium SULFATE in water 2 gram/50 mL (4 %) IVPB 2 Gram 2 Gram, IV, ONE TIME ONLY, 1 dose, On 12/10/24 at 0900, Routine New Bag 12/10/2024 11:03 AM CDT 2 Grams 25 mL/hr meclizine (ANTIVERT) tablet 12.5 mg 12.5 mg, Oral, THREE TIMES DAILY, First dose on 12/12/24 at 1130, Until Discontinued, Routine Given 12/13/2024 8:41 AM CDT 12.5 mg Given 12/12/2024 5:33 PM CDT 12.5 mg Given 12/12/2024 1:38 PM CDT 12.5 mg melatonin tablet 3 mg 3 mg, Oral, NIGHTLY PRN, Starting on Thu12/09/24 at 2342, Until Thu12/13/24 at 1410, Insomnia, Routine Given 12/12/2024 11:28 PM CDT 3 mg methylPREDNISolone sodium succinate (SOLU-Medrol) 125 mg in sterile water 2 mL injection 125 mg, IV, ONE TIME ONLY, 1 dose, On Thu12/09/24 at 2030, Stat Given 12/09/2024 9:43 PM CDT 125 mg methylPREDNISolone sodium succinate (SOLU-Medrol) 40 mg in sterile water 1 mL injection 40 mg, IV, EVERY 8 HOURS, 3 doses, First dose on 12/10/24 at 0600, Last dose on 12/10/24 at 2200, Routine Given 12/10/2024 10:18 PM CDT 40 mg Given 12/10/2024 3:54 PM CDT 40 mg Given 12/10/2024 5:19 AM CDT 40 mg metoprolol succinate (TOPROL XL) SR 24 hour tablet 25 mg 25 mg, Oral, DAILY, First dose on 12/10/24 at 0900, Until Discontinued, Routine, Previous Med: metoprolol succinate (TOPROL XL) 25 mg Extended Release 24 hour tablet - Orig Sig - Take 1 Tablet (25 mg) by mouth daily. Given 12/13/2024 8:41 AM CDT 25 mg Given 12/12/2024 8:42 AM CDT 25 mg Given 12/11/2024 8:21 AM CDT 25 mg miconazole (KIN,MICOTIN,REMEDY AF) 2 % topical cream Topical, TWO TIMES DAILY, First dose on Thu12/12/24 at 1130, Until Discontinued, Routine Given 12/13/2024 8:39 AM CDT Bilateral buttocks Given 12/12/2024 10:07 PM CDT G roin, Right Given 12/12/2024 11:30 AM CDT P erineum morphine (MS IR) tablet 15 mg 15 mg, Oral, EVERY 6 HOURS PRN, Starting on 12/10/24 at 0842, Until Thu12/12/24 at 1218, Pain (See admin instructions), Routine Given 12/12/2024 11:0 3 AM CDT 15 mg Given 12/11/2024 9:11 PM CDT 15 mg Given 12/11/2024 12:23 PM CDT 15 mg morphine 4 mg/mL injection 2 mg 2 mg, IV, ONE TIME ONLY, 1 dose, On Thu12/12/24 at 1800, Routine Given 12/12/2024 6:08 PM CDT 2 mg morphine 4 mg/mL injection 4 mg 4 mg, IV, ONE TIME ONLY, 1 dose, On Thu12/09/24 at 1830, Stat Given 12/09/2024 7:06 PM CDT 4 mg morphine 4 mg/mL injection 4 mg 4 mg, IV, ONE TIME ONLY, 1 dose, On Thu12/09/24 at 2030, Routine Given 12/09/2024 9:43 PM CDT 4 mg naloxone (NARCAN) 0.4 mg/mL injection 0.1 mg 0.1 mg, IV, SEE ADMIN INSTRUCTIONS, Starting on Thu12/09/24 at 2341, Until Thu12/13/24 at 1410, Routine nitroglycerin (NITROSTAT) tablet 0.4 mg 0.4 mg, Sublingual, EVERY 5 MINUTES PRN, Starting on Thu12/12/24 at 1724, Until Thu12/13/24 at 1410, Chest Pain, Routine Given 12/12/2024 5:54 PM CDT 0.4 mg Given 12/12/2024 5:42 PM CDT 0.4 mg OLANZapine (ZyPREXA) tablet 10 mg 10 mg, Oral, DAILY AT BEDTIME, First dose on Thu12/10/24 at 0100, Until Discontinued, Routine, Previous Med: OLANZapine (ZyPREXA) 10 mg tablet - Orig Sig - Take 10 mg by mouth daily at bedtime. Given 12/12/2024 9:58 PM CDT 10 mg Given 12/11/2024 9:04 PM CDT 10 mg Given 12/11/2024 12:28 AM CDT 10 mg ondansetron (ZOFRAN) 4 mg/2 mL injection 4 mg 4 mg, IV, ONE TIME ONLY, 1 dose, On Thu12/09/24 at 1830, Routine Given 12/09/2024 7:05 PM CDT 4 mg ondansetron (ZOFRAN) 4 mg/2 mL injection 4 mg 4 mg, IV, EVERY 6 HOURS PRN, Starting on Thu12/09/24 at 2342, Until Thu12/13/24 at 1410, Nausea/Emesis, Routine perflutren lipid microspheres (DEFINITY) 1.3 mL in sodium chloride 0.9% 10 mL injection 0-10 mL, IV, INTRA-PROCEDURE ONCE, 1 dose, Starting on Thu12/12/24 at 1434, Until Thu12/12/24 at 1330, Routine Contrast Given 12/12/2024 1:30 PM CDT 3 mL potassium CHLORIDE (KLOR-CON) SR tablet 40 mEq 40 mEq, Oral, ONE TIME ONLY, 1 dose, On Thu12/11/24 at 0830, Routine Given 12/11/2024 9:04 AM CDT 40 mEq potassium CHLORIDE 20 mEq/100 mL IVPB 20 mEq 20 mEq, IV, EVERY 4 HOURS, 2 doses, First dose on Thu12/11/24 at 0830, Last dose on Thu12/11/24 at 1200, Routine New Bag 12/11/2024 12:15 PM CDT 20 mEq 50 mL/hr New Bag 12/11/2024 9:26 AM CDT 20 mEq 50 mL/hr predniSONE (DELTASONE) tablet 40 mg 40 mg, Oral, DAILY WITH BREAKFAST, 4 doses, First dose on Thu12/10/24 at 0800, Last dose on Thu12/13/24 at 0800, Routine Given 12/13/2024 8:41 AM CDT 40 mg Given 12/12/2024 8:42 AM CDT 40 mg Given 12/11/2024 8:21 AM CDT 40 mg rOPINIRole (REQUIP) tablet 0.25 mg 0.25 mg, Oral, DAILY AT BEDTIME, 1 dose, First dose on Thu12/13/24 at 0130, Routine Given 12/13/2024 1:20 AM CD T 0.25 mg sacubitriL-valsartan (ENTRESTO) 24-26 mg tablet 1 Tablet 1 Tablet, Oral, TWO TIMES DAILY, First dose on Thu12/10/24 at 0030, Until Discontinued, Routine, Previous Med: sacubitriL-valsartan (ENTRESTO) 24-26 mg Tablet - Orig Sig - Take 1 Tablet by mouth 2 times daily. Given 12/13/2024 8:41 AM CDT 1 Tabl et Given 12/12/2024 9:58 PM CDT 1 Tablet Given 12/12/2024 8:42 AM CDT 1 Tablet sertraline (ZOLOFT) tablet 50 mg 50 mg, Oral, DAILY, First dose on Thu12/10/24 at 0900, Until Discontinued, Routine, Previous Med: sertraline (ZOLOFT) 50 mg tablet - Orig Sig - Take 50 mg by mouth daily. Given 12/13/2024 8:41 AM CDT 50 mg Given 12/12/2024 8:42 AM CDT 50 mg Given 12/11/2024 8:21 AM CDT 50 mg sodium chloride 0.9 % flush bag 25 mL 25 mL, IV, SEE ADMIN INSTRUCTIONS, Starting on Thu12/09/24 at 2341, Until Thu12/13/24 at 1410, Routine sodium chloride 0.9 % infusion IV, at 60 mL/hr, CONTINUOUS, Starting on Thu12/10/24 at 1230, Until Thu12/13/24 at 1410, Routine Rate Verify 12/11/2024 6:17 AM CDT 60 mL/ hr Restarted 12/11/2024 5:44 AM CDT 60 mL/hr Restarted 12/11/2024 2:54 AM CDT 60 mL/hr sodium chloride flush injection 10 mL 10 mL, IV, EVERY 12 HOURS (BlD), First dose on Thu12/09/24 at 2345, Until Discontinued, Routine Given 12/13/2024 8:44 AM CDT 10 mL Given 12/12/2024 10:08 PM CDT 10 mL Given 12/12/2024 8:53 AM CDT 10 mL sodium chloride flush injection 10 mL 10 mL, IV, SEE ADMIN INSTRUCTIONS, Starting on Thu12/09/24 at 2341, Until Thu12/13/24 at 1410, Routine sodium chloride flush injection 10 mL 10 mL, IV, TWO TIMES DAILY, First dose on Thu12/10/24 at 2100, Until Discontinued, Routine Given 12/13/2024 8:44 AM CDT 10 mL Given 12/12/2024 10:08 PM CDT 10 mL Given 12/12/2024 8:53 AM CDT 10 mL sodium PHOSPHATE 30 mmol in sodium chloride 0.9 % 260 mL IVPB 30 mmol, IV, ONE TIME ONLY, 1 dose, On Thu12/10/24 at 0945, Routine New Bag 12/10/2024 10:59 AM CDT 30 mmol 49.2 mL/hr warfarin (COUMADIN) tablet 10 mg 10 mg, Oral, DAILY LATE, First dose (after last modification) on Thu12/13/24 at 1700, Until Discontinued, Routine, Previous Med: warfarin (COUMADIN) 10 mg tablet - Orig Sig - Take 1 Tablet (10 mg) by mouth late in the day for 14 days. 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 Scheduled Medication Order 12/11/2024 12/12/2024 12/13/2024 aspirin (CARTER CHEWABLE) chewable tablet 81 mg 81 mg, Oral, DAILY, First dose on 12/10/24 at 0900, Until Discontinued, Routine, Previous Med: aspirin (CARTER CHEWABLE) 81 mg Tablet, Chewable - Orig Sig - Take 81 mg by mouth daily. 0821 (Given - Provider: Mary Stephen LPN) 0842 (Given - Provider: Roselyn Walker RN) 841 (Given - Provider: Roselyn Walker RN) atorvastatin (LIPITOR) tablet 40 mg 40 mg, Oral, DAILY AT BEDTIME, First dose on 12/10/24 at 0030, Until Discontinued, Routine, Previous Med: atorvastatin (LIPITOR) 40 mg tablet - Orig Sig - Take 40 mg by mouth daily at bedtime. 2106 (Given - Provider: Bina Reeves RN) 215 (Given - Provider: Bina Reeves RN) cefePIME (MAXIPIME) 2,000 mg in sodium chloride 0.9% 50 mL IVPB (MBP) 2,000 mg, IV, EVERY 12 HOURS (BlD), 14 doses, First dose (after last modification) on Thu12/10/24 at 0900, Last dose on Thu12/16/24 at 2100, Routine, Antibiotic Indication: Other: Enter in Comments, Antibiotic Indication: COPD 0827 (New Bag - Provider: Mary Stephen LPN)0857 (Stopped - Provider: Mary Stephen LPN)0 (New Bag - Provider: Bina Reeves RN)2150 (Stopped - Provider: Bina Reeves RN) 0849 (New Bag - Provider: Roselyn Walker, RN)0919 (Stopped - Provider: Roselyn Walker, RN)2234 (New Bag - Provider: Bina Reeves RN)223 (Paused - Provider: Bina Reeves RN)223 (Restarted - Provider: Bina Reeves RN)223 (Paused - Provider: Bina Reeves RN)2238 (Restarted - Provider: Bina Reeves RN)223 (Paused - Provider: Bina Reeves RN)223 (Restarted - Provider: Bina Reeves RN)224 (Paused - Provider: Bina Reeves RN)2240 (Restarted - Provider: Bina Reeves RN)2241 (Paused - Provider: Bina Reeves RN)2242 (Restarted - Provider: Bina Reeves RN)2242 (Paused - Provider: Bina Reeves RN)2242 (Restarted - Provider: Bina Reeves, RN)2243 (Paused - Provider: Bina Reeves RN)2243 (Restarted - Provider: Bina Reeves RN)2243 (Paused - Provider: Bina Reeves RN)2244 (Restarted - Provider: Bina Reeves RN)2244 (Paused - Provider: Bina Reeves RN)2244 (Paused - Provider: Bina Reeves RN)2244 (Restarted - Provider: Bina Reeves RN)2244 (Paused - Provider: Bina Reeves RN)2246 (Restarted - Provider: Bina Reeves RN)2246 (Paused - Provider: Bina Reeves RN)2246 (Restarted - Provider: Bina Reeves RN)224 (Stopped - Provider: Bina Reeves RN)2304 (Stopped - Provider: Bina Reeves RN) 0848 (New Bag - Provider: Roselyn Walker RN)0918 (Stopped - Provider: Roselyn Walker RN) dextrose 5 % - sodium chloride 0.9 % infusion IV, at 40 mL/hr, SEE ADMIN INSTRUCTIONS, Starting on Thu12/09/24 at 2343, Until Thu12/13/24 at 1410, Routine dextrose 5 % - sodium chloride 0.9 % infusion IV, at 40 mL/hr, SEE ADMIN INSTRUCTIONS, Starting on Thu12/10/24 at 1217, Until Thu12/13/24 at 1410, Routine dextrose 5 % in water 250 mL flush bag 25 mL 25 mL, IV, SEE ADMIN INSTRUCTIONS, Starting on Thu12/09/24 at 2341, Until Thu12/13/24 at 1410, Routine dextrose 50% (D50) syringe 12.5 Gram 12.5 Gram, IV, SEE ADMIN INSTRUCTIONS, Starting on Thu12/09/24 at 2343, Until Thu12/13/24 at 1410, Routine dextrose 50% (D50) syringe 25 Gram 25 Gram, IV, SEE ADMIN INSTRUCTIONS, Starting on Thu12/09/24 at 2343, Until Thu12/13/24 at 1410, Routine furosemide (LASIX) tablet 80 mg 80 mg, Oral, TWO TIMES DAILY, First dose on 12/10/24 at 0030, Until Discontinued, Routine, Previous Med: furosemide (LASIX) 80 mg tablet - Orig Sig - Take 1 Tablet (80 mg) by mouth 2 times daily. 08 (Given - Provider: Mary Stephen LPN)2106 (Given - Provider: Bina Reeves RN) 0842 (Given - Provider: Roselyn Walker RN)2100 (Refused - Provider: Bina Reeves RN) 0841 (Given - Provider: Roselyn Walker RN) glucagon HCL 1 mg/mL injection 1 mg 1 mg, IM, SEE ADMIN INSTRUCTIONS, Starting on Thu12/09/24 at 2343, Until Thu12/13/24 at 1410, Routine insulin glargine-yfgn injection 25 Units (CANCELED) 25 Units, subCUT, TWO TIMES DAILY, First dose on Thu12/11/24 at 1130, Until Discontinued, Routine 1209 (Given - Provider: Mary Stephen LPN) insulin glargine-yfgn injection 32 Units (CANCELED) 32 Units, subCUT, TWO TIMES DAILY, First dose (after last modification) on Thu12/11/24 at 2100, Until Discontinued, Routine 2108 (Given - Provider: Bina Reeves RN) insulin glargine-yfgn injection 38 Units (CANCELED) 38 Units, subCUT, TWO TIMES DAILY, First dose (after last modification) on Thu12/12/24 at 0900, Until Discontinued, Routine 0851 (Given - Provider: Roselyn Walker RN) insulin glargine-yfgn injection 45 Units 45 Units, subCUT, TWO TIMES DAILY, First dose (after last modification) on Thu12/12/24 at 2100, Until Discontinued, Routine 2209 (Given - Provider: Bina Reeves RN) 0843 (Given - Provider: Roselyn Walker RN) insulin glargine-yfgn injection 5 Units (COMPLETED) 5 Units, subCUT, ONE TIME ONLY, 1 dose, On Thu12/12/24 at 1230, Routine 1337 (Given - Provider: Roselyn Walker RN) insulin lispro (HumaLOG,ADMELOG) injection 0-18 Units 0-18 Units, subCUT, THREE TIMES DAILY WITH MEALS, First dose on Thu12/11/24 at 1230, Until Discontinued, Routine 1211 (Given - Provider: Mary Stephen LPN)1747 (Given - Provider: Mary Stephen LPN)1821 (Given - Provider: Mary Stephen LPN - Comment: [address] Chen) 0850 (Given - Provider: Roselyn Walker RN)1154 (Given - Provider: Roselyn Walker RN)1735 (Given - Provider: Roselyn Walker RN) 0800 (Not Given - Provider: Roselyn Walker RN - Reason: Lab results / vitals - Comment: bs 148)1142 (Given - Provider: Roselyn Walker RN) insulin lispro (HumaLOG,ADMELOG) injection 0-9 Units 0-9 Units, subCUT, DAILY AT BEDTIME, First dose on 12/11/24 at 2100, Until Discontinued, Routine 2105 (Given - Provider: Bina Reeves RN - Comment: bg [id number]) 2209 (Given - Provider: Bina Reeves RN - Comment: BG [id number]) insulin lispro (HumaLOG,ADMELOG) injection 0-9 Units 0-9 Units, subCUT, DAILY 0200, First dose on Thu12/12/24 at 0200, Until Discontinued, Routine 0226 (Given - Provider: Bina Reeves RN) 0200 (Not Given - Provider: Bina Reeves RN - Reason: Lab results / vitals - Comment: BG 217) insulin lispro (HumaLOG,ADMELOG) injection 10 Units (COMPLETED) 10 Units, subCUT, ONE TIME ONLY, 1 dose, On Thu12/12/24 at 1200, Routine 1153 (Given - Provider: Roselyn Walker RN) insulin lispro (HumaLOG,ADMELOG) injection 25 Units 25 Units, subCUT, THREE TIMES DAILY WITH MEALS, First dose (after last modification) on Thu12/12/24 at 1730, Until Discontinued, Routine 1736 (Given - Provider: Roselyn Walker RN) 0844 (Given - Provider: Roselyn Walker RN)1143 (Given - Provider: Roselyn Walker RN) insulin lispro (HumaLOG,ADMELOG) injection 4 Units (COMPLETED) 4 Units, subCUT, ONE TIME ONLY, 1 dose, On 12/11/24 at 0515, Routine 0523 (Given - Provider: Bina Reeves RN) insulin lispro (HumaLOG,ADMELOG) injection 5 Units (COMPLETED) 5 Units, subCUT, ONE TIME ONLY, 1 dose, On Thu12/12/24 at 0315, Routine 0410 (Given - Provider: Bina Reeves RN) isosorbide mononitrate (IMDUR) SR 24 hour tablet 30 mg 30 mg, Oral, DAILY, First dose on 12/10/24 at 0900, Until Discontinued, Routine, Previous Med: isosorbide mononitrate (IMDUR) 30 mg Extended Release 24 hour tablet - Orig Sig - TAKE 1 TABLET BY MOUTH EVERY DAY 0821 (Given - Provider: Mary Stephen LPN) 0842 (Given - Provider: Roselyn Walker RN) 0841 (Given - Provider: Roselyn Walker RN) meclizine (ANTIVERT) tablet 12.5 mg 12.5 mg, Oral, THREE TIMES DAILY, First dose on Thu12/12/24 at 1130, Until Discontinued, Routine 1338 (Given - Provider: Roselyn Walker RN)1733 (Given - Provider: Roselyn Walker RN) 0841 (Given - Provider: Roselyn Walker RN) metoprolol succinate (TOPROL XL) SR 24 hour tablet 25 mg 25 mg, Oral, DAILY, First dose on 12/10/24 at 0900, Until Discontinued, Routine, Previous Med: metoprolol succinate (TOPROL XL) 25 mg Extended Release 24 hour tablet - Orig Sig - Take 1 Tablet (25 mg) by mouth daily. 0821 (Given - Provider: Mary Stephen LPN) 0842 (Given - Provider: Roselyn Walker RN) 0841 (Given - Provider: Roselyn Walker RN) miconazole (KIN,MICOTIN,REMEDY AF) 2 % topical cream Topical, TWO TIMES DAILY, First dose on Thu12/12/24 at 1130, Until Discontinued, Routine 1130 (Given - Provider: Roselyn Walker RN)2207 (Given - Provider: Bina Reeves RN) 0839 (Given - Provider: Roselyn Walker RN) morphine 4 mg/mL injection 2 mg (COMPLETED) 2 mg, IV, ONE TIME ONLY, 1 dose, On Thu12/12/24 at 1800, Routine 1808 (Given - Provider: Roselyn Walkre RN) naloxone (NARCAN) 0.4 mg/mL injection 0.1 mg 0.1 mg, IV, SEE ADMIN INSTRUCTIONS, Starting on Thu12/09/24 at 2341, Until Thu12/13/24 at 1410, Routine OLANZapine (ZyPREXA) tablet 10 mg 10 mg, Oral, DAILY AT BEDTIME, First dose on Thu12/10/24 at 0100, Until Discontinued, Routine, Previous Med: OLANZapine (ZyPREXA) 10 mg tablet - Orig Sig - Take 10 mg by mouth daily at bedtime. 002 (Given - Provider: Bina Reeves RN)2103 (Given - Provider: Bina Reeves, MARICARMEN) 2157 (Given - Provider: Bina Reeves RN) perflutren lipid microspheres (DEFINITY) 1.3 mL in sodium chloride 0.9% 10 mL injection (COMPLETED) 0-10 mL, IV, INTRA-PROCEDURE ONCE, 1 dose, Starting on Thu12/12/24 at 1434, Until Thu12/12/24 at 1330, Routine 1330 (Contrast Given - Provider: Bret Saleh, RT) potassium CHLORIDE (KLOR-CON) SR tablet 40 mEq (COMPLETED) 40 mEq, Oral, ONE TIME ONLY, 1 dose, On 12/11/24 at 0830, Routine 0904 (Given - Provider: Mary Stephen LPN) potassium CHLORIDE 20 mEq/100 mL IVPB 20 mEq (COMPLETED) 20 mEq, IV, EVERY 4 HOURS, 2 doses, First dose on 12/11/24 at 0830, Last dose on Thu12/11/24 at 1200, Routine 0926 (New Bag - Provider: Mary Stephen LPN)1126 (Stopped - Provider: Mary Stephen LPN)1215 (New Bag - Provider: Mary Stephen LPN)1415 (Stopped - Provider: Mary Stephen LPN) predniSONE (DELTASONE) tablet 40 mg (COMPLETED) 40 mg, Oral, DAILY WITH BREAKFAST, 4 doses, First dose on Thu12/10/24 at 0800, Last dose on Thu12/13/24 at 0800, Routine 0821 (Given - Provider: Mary Stephen LPN) 0842 (Given - Provider: Roselyn Walker RN) 0841 (Given - Provider: Roselyn Walker RN) rOPINIRole (REQUIP) tablet 0.25 mg (COMPLETED) 0.25 mg, Oral, DAILY AT BEDTIME, 1 dose, First dose on Thu12/13/24 at 0130, Routine 0120 (Given - Provider: Bina Reeves RN) sacubitriL-valsartan (ENTRESTO) 24-26 mg tablet 1 Tablet 1 Tablet, Oral, TWO TIMES DAILY, First dose on Thu12/10/24 at 0030, Until Discontinued, Routine, Previous Med: sacubitriL-valsartan (ENTRESTO) 24-26 mg Tablet - Orig Sig - Take 1 Tablet by mouth 2 times daily. 0824 (Given - Provider: Mary Stephen LPN)2103 (Given - Provider: Bina Reeves RN) 0842 (Given - Provider: Roselyn Walker RN)215 (Given - Provider: Bina Reeves RN) 0841 (Given - Provider: Roselyn Walker RN) sertraline (ZOLOFT) tablet 50 mg 50 mg, Oral, DAILY, First dose on Thu12/10/24 at 0900, Until Discontinued, Routine, Previous Med: sertraline (ZOLOFT) 50 mg tablet - Orig Sig - Take 50 mg by mouth daily. 08 (Given - Provider: Mary Stephen LPN) 0842 (Given - Provider: Roselyn Walker RN) 0841 (Given - Provider: Roselyn Walker RN) sodium chloride 0.9 % flush bag 25 mL 25 mL, IV, SEE ADMIN INSTRUCTIONS, Starting on Thu12/09/24 at 2341, Until Thu12/13/24 at 1410, Routine sodium chloride flush injection 10 mL 10 mL, IV, EVERY 12 HOURS (BlD), First dose on Thu12/09/24 at 2345, Until Discontinued, Routine 162 (Given - Provider: Mary Stephen LPN)2103 (Given - Provider: Bina Reeves RN) 0853 (Given - Provider: Roselyn Walker RN)2207 (Given - Provider: Bina Reeves RN) 0844 (Given - Provider: Roselyn Walker RN) sodium chloride flush injection 10 mL 10 mL, IV, SEE ADMIN INSTRUCTIONS, Starting on Thu12/09/24 at 2341, Until Thu12/13/24 at 1410, Routine sodium chloride flush injection 10 mL 10 mL, IV, TWO TIMES DAILY, First dose on Thu12/10/24 at 2100, Until Discontinued, Routine 1626 (Given - Provider: Mary Stephen LPN)2104 (Given - Provider: Bina Reeves, RN) 0853 (Given - Provider: Roselyn Walker RN)2208 (Given - Provider: Bina Reeves, MARICARMEN) 0844 (Given - Provider: Roselyn Walker RN) warfarin (COUMADIN) tablet 10 mg 10 mg, Oral, DAILY LATE, First dose (after last modification) on Thu12/13/24 at 1700, Until Discontinued, Routine, Previous Med: warfarin (COUMADIN) 10 mg tablet - Orig Sig - Take 1 Tablet (10 mg) by mouth late in the day for 14 days. 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, Goal INR: 2 to 3 1623 (Given - Provider: Mary Stephen LPN) Continuous Medication Order 12/11/2024 12/12/2024 12/13/2024 dextrose 5 % - sodium chloride 0.9 % infusion IV, at 60 mL/hr, CONTINUOUS, Starting on Thu12/10/24 at 1230, Until Thu12/13/24 at 1410, Routine 0714 (New Bag - Provider: Mary Stephen LPN)1213 (Stopped - Provider: Mary Stephen LPN) heparin in 0.45% NaCl 25,000 unit/250 mL infusion (CANCELED) 17 Units/kg/hr 73.8 kg Adjusted weight (12.546 mL/hr, rounded to 12.5 mL/hr), IV, TITRATE, Starting on 12/10/24 at 1600, Until 12/12/24 at 0810, Indication: Acute or Chronic VTE/PE/DVT, Dosing by: PER PROTOCOL: Delegate to facility protocol per indication, Re-bolus within Protocol? No, titrate infusion ONLY 0539 (Paused - Provider: Bina Reeves RN)0544 (Restarted - Provider: Bina Reeves RN)0617 (Rate Verify - Provider: Bina Reeves RN)0624 (Rate Change - Provider: Bina Reeves RN)1012 (New Bag - Provider: Mary Stephen LPN)1419 (Rate Change - Provider: Mary Stephen LPN)204 (Paused - Provider: Bina Reeves RN)205 (Restarted - Provider: Bina Reeves RN - Comment: order set not changed from 17 units to 20 units, but was 20 units on the pump) 0337 (Paused - Provider: Bina Reeves RN)0338 (Restarted - Provider: Bina Reeves RN - Comment: order set not changed from 17 units to 20 units, but was 20 units on the pump)0350 (Stopped - Provider: Bina Reeves RN - Comment: Anti-Xa result: 0.96. holding for 6 min, will decrease from 20 units/kg/hr to 17 units/kg/hr after the 60 minutes have passed)0458 (Rate Change - Provider: Bina Reeves RN)0619 (Rate Verify - Provider: Bina Reeves RN)0810 (Stopped - Provider: Roselyn Walker RN - Comment: [Order ends at this time. Document the following action when infusion is complete: Stopped]) insulin regular (HumuLIN R,NovoLIN R) 1 Units/mL in sodium chloride 0.9 % infusion (CANCELED) 0-25 Units/hr (0-25 mL/hr), IV, TITRATE, Starting on 12/10/24 at 1230, Until 12/11/24 at 1128 0216 (Paused - Provider: Bina Vici, RN)0218 (Restarted - Provider: Bina Reeves RN)0219 (Paused - Provider: Bina Reeves RN)0219 (Paused - Provider: Bina Reeves RN)0222 (Paused - Provider: Bina Reeves RN)0237 (Paused - Provider: Bina Reeves RN)0250 (Paused - Provider: Bina Reeves RN)0256 (Restarted - Provider: Bina Reeves RN)0259 (Stopped - Provider: Bina Reeves RN)0259 (New Bag - Provider: Bina Reeves RN)0409 (Rate Change - Provider: Bina Reeves RN)0410 (Rate Verify - Provider: Bina Reeves RN - Comment: [Action automatically changed])0506 (Rate Change - Provider: Bina Reeves RN)0508 (Rate Verify - Provider: Bina Reeves RN)0539 (Paused - Provider: Bina Reeves RN)0544 (Restarted - Provider: Bina Reeves RN)0617 (Rate Verify - Provider: Bina Reeves RN)0806 (New Bag - Provider: Mary Stephen LPN)0919 (Rate Change - Provider: Mary Stephen LPN - Comment: Per Dr. Chen)1206 (Stopped - Provider: Mary Stephen LPN) sodium chloride 0.9 % infusion IV, at 60 mL/hr, CONTINUOUS, Starting on 12/10/24 at 1230, Until Thu12/13/24 at 1410, Routine 0251 (Paused - Provider: Bina Reeves RN)0254 (Restarted - Provider: Bina Reeves RN)0539 (Paused - Provider: Bina Reeves RN)0544 (Restarted - Provider: Bina Reeves RN)0617 (Rate Verify - Provider: Bina Reeves RN)0710 (Stopped - Provider: Mary Stephen LPN) PRN Medication Order 12/11/2024 12/12/2024 12/13/2024 acetaminophen (TYLENOL) tablet 650 mg 650 mg, Oral, EVERY 6 HOURS PRN, Starting on Thu12/09/24 at 2341, Until Thu12/13/24 at 1410, Other (See Comment), See admin instructions, Routine aluminum - magnesium - simethicone (MYLANTA) 200-200-20 mg/5 mL oral suspension 30 mL 30 mL, Oral, EVERY 2 HOURS PRN, Starting on Thu12/09/24 at 2342, Until Thu12/13/24 at 1410, Indigestion, Routine guaiFENesin (ROBITUSSIN) 100 mg/5 mL oral solution 200 mg 200 mg, Oral, EVERY 4 HOURS PRN, Starting on Thu12/09/24 at 2342, Until Thu12/13/24 at 1410, Other (See Comment), to thin secretions, Routine HYDROcodone-acetaminop hen (NORCO) 5-325 mg per tablet 1 Tablet 1 Tablet, Oral, EVERY 8 HOURS PRN, Starting on Thu12/12/24 at 1218, Until Thu12/13/24 at 1410, Pain (See admin instructions), Routine 1528 (Given - Provider: Roselyn Walker RN)2328 (Given - Provider: Bina Reeves RN) 0714 (Given - Provider: Roselyn Walker RN) HYDROcodone-acetaminop hen (NORCO) 7.5-325 mg per tablet 1 Tablet (CANCELED) 1 Tablet, Oral, EVERY 6 HOURS PRN, Starting on 12/10/24 at 1154, Until Thu12/12/24 at 1218, Pain (See admin instructions), Routine 0418 (Given - Provider: Bina Reeves RN)1112 (Given - Provider: Mary Stephen LPN)1746 (Given - Provider: Mary Stephen LPN)2356 (Given - Provider: Bina Reeves RN) 0842 (Given - Provider: Roselyn Walker RN) ipratropium-albuteroL (DUONEB) 0.5 mg-3 mg(2.5 mg base)/3 mL inhalation solution 3 mL(Linked Group 1) 3 mL, Inhalation, EVERY 6 HOURS PRN RESPIRATORY, Starting on 12/10/24 at 0415, Until Thu12/13/24 at 1410, Shortness of Breath, Routine melatonin tablet 3 mg 3 mg, Oral, NIGHTLY PRN, Starting on Thu12/09/24 at 2342, Until Thu12/13/24 at 1410, Insomnia, Routine 2328 (Given - Provider: Bina Reeves, MARICARMEN) morphine (MS IR) tablet 15 mg (CANCELED) 15 mg, Oral, EVERY 6 HOURS PRN, Starting on 12/10/24 at 0842, Until Thu12/12/24 at 1218, Pain (See admin instructions), Routine 1223 (Given - Provider: Mary Stephen LPN)2037 (Canceled Entry - Provider: Bina Reeves RN - Comment: see documentation for 2110)2110 (Given - Provider: Bina Reeves RN - Comment: wasted 15mg with Julian Mosquera RN. barcode unreadable) 1102 (Given - Provider: Roselyn Walker, MARICARMEN) nitroglycerin (NITROSTAT) tablet 0.4 mg 0.4 mg, Sublingual, EVERY 5 MINUTES PRN, Starting on Thu12/12/24 at 1724, Until Thu12/13/24 at 1410, Chest Pain, Routine 1742 (Given - Provider: Roselyn Walker, MARICARMEN)1754 (Given - Provider: Roselyn Walker, RN) ondansetron (ZOFRAN) 4 mg/2 mL injection 4 mg 4 mg, IV, EVERY 6 HOURS PRN, Starting on Thu12/09/24 at 2342, Until Thu12/13/24 at 1410, Nausea/Emesis, Routine Linked Groups Order Group 1: ipratropium-albuteroL (DUONEB) 0.5 mg-3 mg(2.5 mg base)/3 mL inhalation solution 3 mLJump to med 3 mL, Inhalation, EVERY 6 HOURS PRN RESPIRATORY, Starting on 12/10/24 at 0415, Until Thu12/13/24 at 1410, Shortness of Breath, Routine documented in this encounter Additional Health Concerns Active Problems Noted Date Diagnosed Date Heart Failure Problem 05/12/2024 Infection Onset Date Last Indicated Resolved Time R/O Respiratory 12/09/2024 12/10/2024 12/10/2024 1 :36 AM CDT documented as of this encounter Care Teams Knurling Machine Operator Relationship Specialty Start Date End Date Delta Wade MD [address] [address] PCP - General Family Practice 03/25/24 documented as of this encounter
--- OUTSIDE RECORDS SUMMARY | 2024-12-13 22:58 | XMS_ITS | CCD ---
Author Name Interface, [id number] Address [facility] [place] [address] [facility] Address [address] [place] [address] Care Team Providers Care Chemical Technician Name Role Phone Anika VALLADARES, Allen Unavailable Unavailable Allergies and Adverse Reactions Reason for Visit Medications Problems Social History
--- OUTSIDE RECORDS SUMMARY | 2024-12-13 22:58 | XMS_ITS | Encounter Summary ---
Author Organization [facility] Address [address] [place] [address] Care Team Providers Care Parish Worker Name Role Phone Delta Wade MD Primary Care Provider [phone] Encounter Details Date Type Department Care Team ([facility] st Contact Info) Description 06/16/2024 Telephone [facility] Ophthalmology [address] [place] [address] [place] [address] [place] [phone] Eduardo Craven MD [address] [place] [address] [place] [phone] Social History Tobacco Use Types Packs/Day [...] often do you attend chur ch or mormonism services? 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 [address] [place] [address] Tresa Stockton, [facility] [address] [facility] [address] [place] [phone] documented as of this encounter Goals Goal [...] 11/13/2024 11/13/2024 11/13/2024 1 2:06 PM CDT R/O Respiratory 11/21/2024 11/21/2024 11/21/2024 1 1:06 PM CDT R/O Respiratory 11/28/2024 11/28/2024 11/28/2024 7 :13 PM CDT R/O Respiratory 12/09/2024 12/10/2024 12/10/2024 1 :36 AM CDT documented as of this encounter Care Teams Parish Worker Relationship Specialty Start Date End Date Delta Wade MD [address] [place] [address] PCP - General Family Practice 03/25/24 documented as of this encounter
--- OUTSIDE RECORDS SUMMARY | 2024-12-13 22:58 | XMS_ITS ---
Author Organization [facility] Address [address] [place] [address] Phone Care Team Providers Care Sales Manager Name Role Phone Delta Wade MD Primary Care Provider [phone] Active Problems Problem Noted Date Diagnosed Date Infiltrate of lung present on chest x-ray 2024 Acute respiratory failure with hypoxia and hyper capnia 11/30/2024 Consolidation of left lower lobe of lung 025 COPD exacerbation 11/06/2024 Hepatic steatosis 11/04/2024 Diabetes mellitus with hyperglycemia 11/02/2024 Essential hypertension 10/31/[address] 10/31/2024 Overview (10/31/2024): Lung mass, needs fu with pulmonology, discussed with patient 10-31-24 COPD with exacerbation 10/27/2024 Centrilobular emphysema 10/16/2024 Acute respiratory failure with hypercapnia 09/13 Chest pain 08/26/2024 At risk for obstructive sleep apnea 08/25/2024 Back pain 08/18/2024 L1 vertebral fracture 08/15/2024 Closed compression fracture of body of L1 verteb ra 08/15/2024 Dyspnea 08/15/2024 Fall 08/14/2024 Chronic anticoagulation 08/09/2024 CAD (coronary atherosclerotic disease) Morbid obesity due to excess calories 08/04/2024 Insulin dependent type 2 diabetes mellitus 07/23 Benign hypertension 07/23/2024 Acute on chronic hypoxic respiratory failure 04/2024 Acute respiratory distress 07/19/2024 Chronic combined systolic an d diastolic congestive heart failure 07/18/2024 Anemia 07/12/2024 HFrEF (heart failure with reduced ejection fract ion) 07/12/2024 Chronic respiratory failure with hypoxia, on home O2 therapy 07/03/2024 Hammertoe of left foot 06/05/2024 Neuropathy 04/08/2024 Non-proliferative diabetic retinopathy, left eye 03/07/2024 Nuclear age-related cataract, both eyes 03/07/20 Vitreomacular adhesion of right eye 03/07/2024 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 03/07/2024 Hot flashes 08/05/2023 Snoring 08/05/2023 Daytime somnolence 08/05/2023 History of pulmonary embolism 07/21/2023 History of splenectomy 06/10/2023 Protein-calorie malnutrition, moderate Adynamic ileus 06/02/2023 Splenic cyst 05/31/2023 Hematoma of spleen after procedure on spleen 10/2023 Closed nondisplaced fracture of body of left sca pula 05/04/2023 H/O mastectomy, right 03/04/2023 Asthma 12/02/2022 Chronic pain syndrome 12/02/2022 Osteoarthritis [...] 06/14/2019 H/O vaginal surgery 06/14/2019 Atherosclerosis of [place] co ronary artery of [place] heart without angina pectoris 06/14/2019 Former smoker 12/16/2010 Primary hereditary hemochromatosis 12/13/2010 [...] 72.3 51 mg/m2 (140 mg) Effective Dose 275.64 mSv 275.64 mSv 0 mSv Total DLP 22,956.42 DLP 22,956.42 DLP 0 DLP CTDIvol Max 919.12 mGy 919.12 mGy 0 mGy CTDIvol Min 207.51 mGy 207.51 mGy 0 mGy Fluoro 7.4 Minutes 0 Minutes 7.4 Minutes Air Kerma 495 mGy 0 mGy 495 mGy Dose Area Product (DAP) 55.2 Gy-cm2 0 Gy-cm2 55.2 Gy-cm2 Resolved Problems Problem Noted Date Diagnosed Date Resolved Date Shortness of breath 10/31/2024 11/05/19 Other chest pain 10/31/2024 11/04/2024 syncopal episode 10/31/2024 11/04/2024 Pain of upper abdomen 10/28/20242024 Acute on chronic congestive heart failure 10/17/2024 11/21/2024 Dark stools 10/10/2024 11/21/2024 Diarrhea 09/13/2024 11/21/2024 COPD exacerbation 08/22/2024 11/04/2024 Rhinovirus infection 08/15/2024 025 Chest pain 08/05/2024 08/09/2024 Acute on chronic respiratory failure with hypoxia and hypercapnia 07/22/2024 08/09/2024 Pneumonia of left lung due t o infectious organism 07/22/2024 11/21/2024 COPD exacerbation 07/21/2024 08/09/2024 Macrocytosis 07/19/2024 11/21/2024 Cellulitis of right lower extremity 07/14/2024 11/21/2024 Preoperative general physical examination 07/12/2024 11/21/2024 Right leg pain 07/04/2024 11/21/2024 Pneumonia of left lower lobe due to infectious organism 07/01/2024 11/21/2024 Melena 03/19/2024 07/12/2024 Coffee ground emesis 03/19/2024 025 Atypical angina 02/19/2024 11/21/2024 Pneumonia due to COVID-19 virus 02/18/2024 07/12/2024 Community acquired pneumonia 02/18/2024 07/12/2024 Peripheral edema 08/05/2023 11/04/2024 Hypokalemia 07/21/2023 11/21/2024 NSTEMI (non-ST elevated myoc ardial infarction) 06/06/2023 11/21/2024 Leukocytosis (leucocytosis) 06/02/2023 11/21/2024 Nausea and vomiting 05/31/2023 07/13/19 RUQ pain 05/31/2023 11/21/2024 Tachycardia 12/02/2022 11/21/2024 Yeast infection involving th e vagina and surrounding area 01/06/2022 12/02/2022 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
--- OUTSIDE RECORDS SUMMARY | 2024-12-13 22:58 | XMS_ITS | Encounter Summary ---
Author Organization [facility] Address [address] [place] [address] Care Team Providers Care Project Safety Manager Name Role Phone Delta Wade MD Primary Care Provider [phone] Reason for Visit * Reason Comments Hospital Follow Up Encounter Details Date Type Department Care Team ([facility] st Contact Info) Description 05/13/2024 Telephone [facility] Er Medicine [place] [address] [place] [address] Kay Lima, [facility] [address] [place] [address] Hospital Follow Up Social History [...] any clubs o r organizations such as christian groups, unions, fraternal or athletic groups, or [...] on file 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 Could not leave voicemail. If patient calls back please schedule for hospital follow up appointment for the next opening spot. Can be vv if patient cannot travel to clinic. LRY MECHANIC * Telephone Encounter - Gypsy Gerber - 05/13/2024 12:02 PM CST Copied from [facility] #[id number]. Topic: Reschedule/Cancel Appointment/Late Arrival >> May 13, 2024 11:57 AM Gypsy Dawson wrote: Caller is requesting to reschedule/cancel a hospital follow up. Caller Name: eL Barnhart Callback Number: Telephone Information: Call Notes: [...] of hospital discharge? 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 [facility] LRY MECHANIC documented in this encounter Plan of Treatment Upcoming Encounters Date Type Department Care Team (Late st Contact Info) Description 12/20/2024 2:00 PM CDT Office Visit [facility] Endocrinology [facility] [address] [place] [address] James Lee MD [address] [place] [address] Gricel Mcgovern PA [address] [place] [phone] 01/12/2025 1:40 PM CDT Office Visit [facility] [address] [facility] [address] [place] [address] Tresa Stockton, [facility] [address] [facility] [address] [place] [phone] documented as of this encounter Goals Goal [...] R/O COVID-19 05/13/2024 05/13/2024 05/14/2024 4:15 AM JEWELRY MECHANIC R/O Respiratory 06/30/2024 06/30/2024 06/30/2024 1 0:36 [...] documented as of this encounter Care Teams Project Safety Manager Relationship Specialty Start Date End Date Delta Wade MD [address] [address] PCP - General Family Practice 03/25/24 documented as of this encounter
--- OUTSIDE RECORDS SUMMARY | 2024-12-13 22:59 | XMS_ITS | Encounter Summary ---
Author Organization [facility] Address [address] [place] [address] Care Team Providers Care Halfway House Counselor Name Role Phone Delta Wade MD Primary Care Provider Reason for Visit * Reason Onset Date Comments Anticoagulation 12/13/2024 Encounter Details Date Type Department Care Team ([facility] st Contact Info) Description 12/13/2024 Telephone [facility] [address] [place] [address] Veronika Yusuf, RN [address] [place] [address] Anticoagulation Social History Tobacco Use [...] any clubs o r organizations such as congregation groups, unions, fraternal or athletic groups, or [...] worry about transportation for future doctor visits, pick up attendant medication, etc.? 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 documented in this encounter Plan of Treatment Upcoming Encounters Date Type Department Care Team (Late st Contact Info) Description 12/20/2024 2:00 PM CDT Office Visit [facility] Endocrinology [facility] [address] [place] [phone] James Lee MD [address] [place], [place] [address] Gricel Mcgovern PA [address] [place] [address] 01/12/2025 1:40 PM CDT Office Visit [facility] Cardiology [facility] [address] [facility] [address] [place] [phone] Tresa Stockton, SUPPLY CHAIN TECH [address] [facility] [address] [facility] [address] [place] [phone] documented as of this encounter Goals Goal Patient Goal Type Associated Problems Recent Progress Patient-Stated? Author Heart Failure Goal Care Plan Heart Failure Problem No Latonya Anguiano LPN documented as of this encounter Visit Diagnoses Not on filedocumented in this encounter Additional Health Concerns Active Problems Noted Date Diagnosed Date Heart Failure Problem 05/12/2024 documented as of this encounter Care Teams Halfway House Counselor Relationship Specialty Start Date End Date Delta Wade MD [address] [address] PCP - General Family Practice 03/25/24 documented as of this encounter
--- OUTSIDE RECORDS SUMMARY | 2024-12-13 22:59 | XMS_ITS | Patient Health Record ---
Author Organization [facility] Address [address] [place] [address] Care Team Providers Care [employer] Name Role Phone Delta Wade Primary Care Provider Unavailabl Jose Cruz Callejas Unavailable [phone] Gregorio Montes Unavailable [phone] Masoud Bello Unavailable [phone] Acacia Gaines Unavailable [phone] Chantelle Yee Unavailable [phone] Hannah Rai Unavailable [phone] Allergies Allergen (clinical drug ingredient) Drug/Non Drug Allergy documented on EMR Reaction Allergy Type Onset Date Status Compazine Unknown Drug Allergy Active ketorolac Ketorolac Unknown Drug Allergy Active Results Component Value Reference Range Notes Prothrombin Time 75156 Reviewed date:05/16/2024 05:08:19 PM Interpretation: Performing Lab: Notes/Report: trop 2nd@ 205 3510 @ 0021 3510 @ 0021 ProTime 10.8 9.1-11.9 SEC Normal Range: 9.1-11.9 INR 1.02 .90-1.20 Therapeutic Range: 2.0-3.0 Therapaeutic Range for heart valve replacement: 2.5-3.50 Partial Thromboplastin Time 92667 Reviewed date:05/16/2024 05:08:19 PM Interpretation: Performing Lab: Notes/Report: trop 2nd@ 205 3510 @ 0021 3510 @ 0021 PTT 27.1 22.6-31.8 SEC Therapeutic Range: 60-100. Critical Value Starting at > 100. NM HB Scan w/ejection fracti on-78606 Reviewed date:01/05/2024 04:37:06 PM Interpretation: Performing Lab: Notes/Report: See Below For Report NM HB Scan w/ejection fraction 2407 @ 2313 Read See Below For Report NM HB Scan w/ejection fracti on-83337 Reviewed date:01/05/2024 04:36:45 PM Interpretation: Performing Lab: Notes/Report: [id number]&[email or web address]=[facility] zzzHeart Cath Lt poss PTCA Reviewed date:05/16/2024 05:08:19 PM Interpretation: Performing Lab: Notes/Report: [id number]&org=[facility] zzzHeart Cath Lt poss PTCA Reviewed date:05/16/2024 05:08:19 PM Interpretation: Performing Lab: Notes/Report: See Below For Report This report was dictated outside of the [employer] system. trop 2nd@ [facility] 3510 @ 0021 Read See Below For [...] First Name ER Referring Provider Last Name [facility] Referring Provider Speciality Emergency Medicine Referred Organization [facility] Referred Provider Jose Cruz Forde Referred Address [address] [place] [address] [address],[place], [place],[address],[place] Referred Provider Specialty Pulmonary Di seases General Notes Joselin Lopez 025 03:08:20 PM >06/06: Gave Report to PRVDR to review, Joselin Lopez 06/07/2024 12:13:32 PM >06/07: 1 wk per John forde Marie 06/07/2024 02:24:10 PM >06/07: Left Meir, Adelaida Wylie 06/08/2024 10:26:47 AM >SCHEDULED 06/20 [...] Date Status Comme nts Influenza (whole), CPT 27272 Inactive Unknown 01/04/2024 Administered Social History Tobacco [...] W/U Status Risk Notes Problem Tobacco user (363596275) Nicotine dependence, cigarettes, in remission (F17.211) Active confirmed Problem Ischemic cardiomyopathy (452595636) Ischemic cardiomyopathy (I25.5) Active confirmed Problem Chronic obstructive pulmonary disease (29467667) Chronic obstructive pulmonary disease, unspecified (J44.9) Active confirmed Problem Gastro-esophageal reflux disease without esophagitis (622816581) Gastro-esophageal reflux disease without esophagitis (K21.9) Active confirmed Problem C-reactive protein abnormal (579366300) Elevated C-reactive protein (CRP) (R79.82) Active confirmed Problem Solitary pulmonary nodule (771415004) Solitary pulmonary nodule (R91.1) Active confirmed Problem Long-term current use of anticoagulant (744008491) nursing home (current) use of anticoagulants (Z79.01) Active confirmed Problem Atherosclerotic heart disease of [place] coronary artery without angina pectoris (487530349804887) Arteriosclerosis of coronary artery (I25.10) Active confirmed Problem History of placement of stent for coronary artery disease (situation) (446398329) H/O heart artery stent (Z95.5) Active confirmed Problem Long-term current use of anticoagulant (187485725) Anticoagulated (Z79.01) Active confirmed Problem Angina (229150624) Atheroscleros is of [place] coronary artery of [place] heart with angina pectoris (I25.119) Active confirmed Problem Acute non-ST segment elevation myocardial infarction (457515990) Non-ST elevated myocardial infarction (I21.4) Active confirmed Problem History of pulmonary embolus (310708228) Hx of pulmonary embolus (Z86.711) Active confirmed Problem Coronary stent patent (699467497) Coronary stent patent (Z95.5) Active confirmed Problem Chronic respiratory failure (67065749) Chronic hypoxic respiratory failure (J96.11) Active confirmed [...] N/A Encounters Encounter Location Date Provider Diagnosis [facility] [address] [place] [address] [place] [address] 06/20/2024 Jose Cruz Forde Solitary pulmonary nodule R91.1 ; Chronic hypoxic respiratory failure J96.11 ; Nicotine dependence, cigarettes, in remission F17.211 and Shortness of breath R06.02 [facility] [address] [place] [address] 02/17/2024 Gregorio Montes [facility] [place] [address] [address] 06/06/2024 Masoud Bello Other fracture of unspecified lumbar vertebra, initial encounter for closed fracture S32.008A [facility] [address] [place] [address] 06/30/2024 Jose Cruz Forde Assessments Encounter Date Diagnosis (ICD Code) Assessment [...] remission (ICD-10 - F17.211) Patient smoked a [id number] for 45 years. She has been abstinent [...] Test Test Name Order Date Lumbosacral Spine AP/Lat-81576 5 PFT with FRC: (NO TGV) 06/20/2024 CT Chest ION Endoluminal-95661 5 Insurance Providers Payer Name Payer Address Payer Phone Subscriber Number Group Number Insured Name Patient Relationship to Insured Coverage Start Date Coverage End Date [place] Medicaid [address] [place] [address] [phone] [id number] [id number] Self - patient is the [...]
--- OUTSIDE RECORDS SUMMARY | 2024-12-13 22:59 | XMS_ITS | Clinical Summary ---
Author Organization [facility] Address [address] [place] [address] Phone Care Team Providers Care Microscopist Name Role Phone Delta Wade MD Primary Care Provider [phone] Allergies Active Allergy Reactions Criticality Noted Date [...] complication, without long-term current use of insulin ([facility]) Use to test blood glucose up to TID PRN symptoms. 1 Each 023 Active blood sugar diagnostic StripIndication s:Type 2 diabetes mellitus without complication, without long-term current use of insulin ([facility]) Use to test blood glucose up to QID PRN symptoms. 100 Each 11 023 Active naloxone (NARCAN) 4 mg/spray [place], Non-Aerosol EMERGENCY USE ONLY: Administer 1 spray (4 mg) in one nostril one time. May repeat in alternating nostrils every 2-3 min until responsive or EMS arrives. 2 Each 3 023 Active portable oxygenIndicatio ns:Chronic obstructive pulmonary disease, unspecified COPD type ([facility]),Oxyge n dependent Face to Face completed within 30 days: yes Length of Need: 99 months By: Nasal Cannula Continuously at 3 L/min. 1 Each 024 Active fluorouraciL (EFUDEX) 5 % Cream 024 Active LORazepam (ATIVAN) 0.5 mg tabletIndicatio ns:Anxiety state Take 1 Tablet (0.5 mg) by mouth every 8 hours as needed for Anxiety. 20 Tablet 025 Active OLANZapine (ZyPREXA) 10 mg tablet Take 10 mg by mouth daily at bedtime. 025 Active aspirin (CARTER CHEWABLE) 81 mg Tablet, Chewable Take 81 mg by mouth daily. Active atorvastatin (LIPITOR) 40 mg tablet Take 40 mg by mouth daily at bedtime. 024 Active nitroglycerin (NITROSTAT) 0.4 mg Tablet, Sublingual Place 0.4 mg under tongue. 025 Active isosorbide mononitrate (IMDUR) 30 mg Extended Release 24 hour tabletIndicatio ns:Chest pain, unspecified type,Congestive heart failure, unspecified HF chronicity, unspecified heart failure type (CMS/HCC) TAKE 1 TABLET BY MOUTH EVERY DAY 30 Tablet 1 025 Active Ventolin HFA 90 mcg/actuation inhaler Take [...] Need: 99 months 1 Each 025 Active levalbuterol (XOPENEX) 1.25 mg/3 mL Solution for Nebulization Take 1.25 mg by inhalation every 6 hours as needed for Shortness of Breath or Wheezing. 025 Active ipratropium-alb uteroL (DUONEB) 0.5 mg-3 mg(2.5 [...] hours. 60 Tablet 1 025 2024 Active acetaminophen (TYLENOL) 325 mg tablet Take 2 Tablets (650 mg) by mouth every 6 hours as needed for Pain, Mild / Temperature (.). Active methocarbamoL (ROBAXIN) 500 mg tablet Take [...] needed for Cough. 60 Capsule 1 Active lidocaine (LIDODERM) 5 % Adhesive Patch, Medicated Apply 1 Patch to affected area every 24 hours. 30 Patch 025 2024 Active sertraline (ZOLOFT) 50 mg tablet Take 50 mg by mouth daily. Active rOPINIRole (REQUIP) 0.5 mg tablet Take 0.5 mg by mouth daily at bedtime. Active amitriptyline (ELAVIL) 25 mg tablet Take 25 mg by mouth daily. Active warfarin (COUMADIN) 10 mg tablet Take 1 Tablet (10 mg) by mouth late in the day for 14 days. 14 Tablet 2024 Active meclizine (ANTIVERT) 12.5 mg tablet Take 1 Tablet (12.5 mg) by mouth 3 times daily. 15 Tablet Active miconazole (SEAN,MICOTIN,R EMEDYoung AF) 2 % Cream Apply to affected area 2 times daily. 15 Gram Active triamcinolone acetonide (KENALOG) 0.1 % Ointment Apply to affected area 2 times daily. 15 Gram Active cefUROXime axetil (CEFTIN) 500 mg tablet Take 1 Tablet (500 mg) by mouth every 12 hours for 7 days. 14 Tablet 2024 Active predniSONE (DELTASONE) 20 mg tablet Take 2 Tablets (40 mg) by mouth daily with breakfast. Until followup with PCP in 3 days then thereafter per their directives 10 Tablet Active insulin glargine-yfgn 100 unit/mL pen syringe Inject 45 Units by subcutaneous injection 2 times daily. 15 mL Active potassium CHLORIDE (KLOR-CON) 10 mEq Extended Release tablet Take 1 Tablet by mouth daily. 2024 Discontinued triamcinolone acetonide (KENALOG) 0.1 % OintmentIndicat ions:Dermatitis Apply to affected area 2 times daily as needed for Other (See Comment) (rash). 10 Gram 025 2024 Discontinued warfarin (COUMADIN) 6 mg tablet Take 2 Tablets (12 mg) by mouth late in the day. 30 Tablet 1 025 2024 Discontinued Lantus Solostar U-100 Insulin 100 unit/mL (3 mL) solution for injection Inject 40 Units by subcutaneous injection daily at bedtime. 15 mL 1 025 2024 Discontinued guaiFENesin (MUCINEX) 600 mg Extended Release Biphasic tablet Take 1 Tablet (600 mg) by mouth every 12 hours for 14 days. 28 Tablet 025 2024 predniSONE (DELTASONE) 20 mg tablet Take 2 Tablets (40 mg) by mouth daily with breakfast for 5 days. 10 Tablet 025 2024 Discontinued lidocaine (LIDODERM) 5 % Adhesive Patch, Medicated Apply 1 Patch to affected area every 24 hours for 7 days. 7 Patch 025 2024 Discontinued enoxaparin (LOVENOX) 100 mg/mL injection Inject 1 mg/kg by subcutaneous injection every 12 hours. 025 2024 Discontinued predniSONE (DELTASONE) 20 mg tablet Take 2 Tablets (40 mg) by mouth daily with breakfast for 1 day. 2 Tablet 2024 Active Problems Problem Noted Date Diagnosed Date [...] 06/14/2019 H/O vaginal surgery 06/14/2019 Atherosclerosis of [place] co ronary artery of [place] heart without angina pectoris 06/14/2019 Former smoker [...] 06/02/2023 11/21/2024 Nausea and vomiting 05/31/2023 07/13/19 25 RUQ pain 05/31/2023 11/21/2024 Tachycardia 12/02/2022 11/21/2024 [...] Encounters Date Type Department Care Team Description 12/13/2024 Telephone [facility] [address] [place] [address] Veronika Yusuf, RN Anticoagulation 12/09/2024 5:59 PM CDT - 12/13/2024 12:00 PM CDT Hospital Encounter [facility] 4D Surgery Heart Lung [address] [place] [address] Mikey Rudolph MD Melton, Gregory A, DO Almond, Toni L, MD COPD exacerbation ([facility]) Discharge Disposition: Home or Self Care 12/09/2024 Travel 11/29/2024 Telephone [facility] [address] [place] [address] Veronika Yusuf, RN Anticoagulation 11/28/2024 5:27 PM CDT - 12/02/2024 1:32 PM CDT Hospital Encounter [facility] 3D Medical Telemetry [address] [place] [address] Cassius Sanderson MD Abbas, MD Dinah Soto, Matilde Henry MD COPD exacerbation ([facility]) Discharge Disposition: Home or Self Care 11/27/2024 4:20 PM CDT - 11/27/2024 7:43 PM CDT Emergency [facility] Emergency Department [address] [place] [phone] Jonny Bowers MD Dyspnea, unspecified type (Primary Dx) Discharge Disposition: Home or Self Care 11/21/2024 6:34 PM CDT - 11/23/2024 1:54 PM CDT Hospital Encounter [address] Medical Surgical [address] [place] [address] Kay Majano MD Sundaram, Vignesh, MD Phelps, Jamie, MD Kaur, MD Trini Centrilobular emphysema ([facility]) Discharge Disposition: Home or Self Care 11/21/2024 Travel 11/18/2024 5:04 PM CDT - 11/18/2024 9:56 PM CDT Emergency [facility] Emergency Department [address] [place] [address] Tresa Mueller MD Multiple leg contusions, left, initial encounter (Primary Dx); Strain of left ankle, initial encounter; Anticoagulated; Contusion of multiple sites of left lower extremity, initial encounter Discharge Disposition: Home or Self Care 11/18/2024 Travel 11/15/2024 Telephone [facility] [address] [place] [phone] Veronika Yusuf RN Anticoagulation 11/13/2024 10:17 AM CDT - 11/16/2024 1:34 PM CDT Hospital Encounter [address] Medical Surgical [address] [place] [phone] Austin Robertson MD Kakakhel, Zainab, MD [place], Anthony Charles, COPD with exacerbation ([facility]) Discharge Disposition: Home or Self Care 11/12/2024 9:40 PM CDT - 11/12/2024 9:42 PM CDT Emergency [facility] Emergency Department [address] [place] [phone] Discharge Disposition: Left Against Medical Advice 11/12/2024 Travel 11/11/2024 7:54 PM CDT - 11/12/2024 12:59 AM CDT Emergency [facility] Emergency Department [address] [place] [phone] Aki Booth DO Skin abrasion (Primary Dx); Dyspnea, unspecified type Discharge Disposition: Home or Self Care 11/11/2024 Travel 11/09/2024 Telephone [facility] Ophthal[facility] [place] [address] [phone] Eduardo Craven MD Needs Appointment 11/08/2024 4:05 AM CDT - 11/10/2024 2:03 PM CDT Hospital Encounter [facility] 4C Medical [address] [place] [address] Jonny Bowers MD Bandaru, Kiran Babu, MD COPD with exacerbation (CMS/HCC) Discharge Disposition: Home or Self Care 11/07/2024 11:50 AM CDT - 11/07/2024 11:59 PM CDT Hospital Encounter [facility] Emergency Medical Services [facility] [address] [place] [address] Ambulance, [facility] Discharge Disposition: [facility] 11/05/2024 4:22 PM CDT - 11/07/2024 3:04 PM CDT Hospital Encounter [facility] 4A Cardiac [address] [place] [address] Aki Booth DO Abbas, Muhammad Khalid, MD Nagotu Kambagiri, Sharada, MD COPD exacerbation (CMS/HCC) Discharge Disposition: Home or Self Care 10/31/2024 6:02 AM CDT - 11/04/2024 4:24 PM CDT Hospital Encounter [facility] 4B Cardiac [address] [place] [phone] Aggie Rivas DO Griffin, Kristin L, MD Kuppi Reddy, Madhavi, MD Siddiqi, Talha, MD Syncope Discharge Disposition: Home or Self Care 10/29/2024 11:32 PM CDT - 10/30/2024 12:54 AM CDT Emergency [facility] Emergency Department [address] [place] [phone] Discharge Disposition: Left Against Medical Advice 10/28/2024 Telephone [facility] [address] [place] [phone] Veronika Yusuf RN Anticoagulation 10/26/2024 3:29 PM CDT - 10/29/2024 12:37 PM CDT Hospital Encounter [address] Medical [address] [place] [phone] Haven Joshi DO Abbas, MD Jony Soto Melissa Mae, MD COPD exacerbation ([facility]) Discharge Disposition: Home or Self Care 10/26/2024 Travel 10/20/2024 5:35 PM CDT - 10/20/2024 10:25 PM CDT Emergency [facility] Emergency Department [address] [place] [phone] Laron Hanson DO Beard, Courtney Elizabeth, MD Shortness of breath (Primary Dx); Bilateral upper abdominal pain Discharge Disposition: Home or Self Care 10/20/2024 Travel 10/16/2024 1:28 AM CDT - 10/19/2024 11:37 AM CDT Hospital Encounter [address] Medical [address] [place] [phone] Slim Galan DO [place], Hari Krishna, MD Patel, Taksh, MD Acute on chronic hypoxic respiratory failure (CMS/HCC) Discharge Disposition: Home or Self Care 10/16/2024 Travel 10/13/2024 Telephone [facility] Ophthal[facility] [place] [address] [place] [address] Eduardo Craven MD Appoinment request 10/12/2024 Telephone [facility] Internal Medicine [place] [address] [place] [address] Delta Wade MD Erroneous encounter-disregard 10/10/2024 3:33 AM CDT - 10/11/2024 3:29 PM CDT Hospital Encounter [facility] 4A Cardiac [address] [place] [address] Anita López MD Bajor, Conrad Mitchell, DO [place]ana, Hari Krishna, MD Acute respiratory distress Discharge Disposition: Home or Self Care 10/10/2024 Travel 10/08/2024 6:07 PM CDT - 10/08/2024 10:40 PM CDT Emergency [facility] Emergency Department [address] [place] [address] Anderson Marie DO COPD with exacerbation ([facility]) (Primary Dx) Discharge Disposition: Home or Self Care 10/08/2024 Travel 10/07/2024 Telephone [facility] Ophthal[facility] [place] [address] [facility] [address] [place] [address] Eduardo Craven MD Documentation Only 10/07/2024 Telephone [facility] Family Medicine [place] [address] [place] [address] Ryann Burk MD Question; Patient Communication 10/04/2024 Orders Only [facility] Neurosurgery [address] [place] [address] Jerson Salas, PA Closed fracture of first lumbar vertebra, unspecified fracture morphology, initial encounter ([facility]) (Primary Dx) 10/01/2024 2:44 PM CDT - 10/03/2024 1:00 PM CDT Hospital Encounter [facility] 4A Cardiac [address] [place] [phone] Huy Ornelas MD Patel, Taksh, MD Mady, Mohamed Hamdy Ahmed Mohamed, MD Kuppi Reddy, Madhavi, MD Chest pain Discharge Disposition: Home or Self Care 09/28/2024 4:25 PM CDT - 09/28/2024 5:54 PM CDT Emergency [facility] Emergency Department [address] [place] [phone] Austin Robertson MD [place], Robert C, MD Drug-seeking behavior (Primary Dx) Discharge Disposition: Left Against Medical Advice 09/22/2024 11:44 PM CDT - 09/23/2024 9:48 AM CDT Emergency [facility] Emergency Department [address] [place] [phone] Discharge Disposition: Left without being seen 09/22/2024 Travel 09/16/2024 11:40 PM CDT - 09/16/2024 11:41 PM CDT Emergency [facility] Emergency Department [address] [place] [phone] Discharge Disposition: Left without being seen 09/12/2024 9:13 PM CDT - 09/15/2024 12:26 PM CDT Hospital Encounter [facility] 4B Cardiac [address] [place] [phone] Robbie Yen, DO Baig, MD Esperanza Soto, MD La Perez, Michael Mathew MD COPD exacerbation ([facility]) Discharge Disposition: Home or Self Care from [...] PNEUM OCOCCAL CONJUGATE VACCINE 20-VALENT (PCV20), POLYSACCHARIDE [id number] CONJUGATE, ADJUVANT 0.5 ML (PF) IM 06/05/2023,12/02/2022,12/25/2021 [...] worry about transportation for future doctor visits, package pick up medication, etc.? 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 Gender Identity Not on file Sexual [...] Mass Index 37.54 12/10/2024 12:25 AM CDT Plan of Treatment Upcoming Encounters Date Type Department Care Team (Late st Contact Info) Description 12/20/2024 2:00 PM CDT Office Visit [facility] Endocrinology [facility] [address] [place] [address] James Lee MD [address] [place] [address] Gricel Mcgovern PA [address] [place] [address] 01/12/2025 1:40 PM CDT Office Visit [facility] [address] [facility] [address] [place] [address] Tresa Stockton, [facility] [address] [facility] [address] [place] [address] Health Maintenance Due Date Last [...] 07/12/2015 ZOSTER VACCINE (1 of 2) 07/12/2015 DIABETES MICROALBUMIN ANNUAL SCREEN 02/27/2024 02/26/2023 INFLUENZA VACCINE (#1) 2024 4, 12/02/2022, 12/25/2021, Additional history exists COVID-19 Vaccine (2024-2 6 season) 2024 10/02/2021, 02/27/2021, 05/23/2020, Additional history exists LDL CHOLESTEROL ANNUAL 02/18/2025 [...] Anguiano LPN Medical Devices Implanted Type Area Brim Ironer Hand Device Identifier Shelf Expiration Date Model / Serial / Lot Dev Closure Angioseal 6fr Vip [id number] - [id number] Implanted:Qty: 1 on 03/21/2024 by Kyler Helm MD at [facility] Closure Device Right: Groin TERUM[employer]- [employer]IOVASC SYS [id number] 10/25/2024 [id number] / / [id number] 93 Imp Toe Phalinx 10 Solid Angl Sml [id number] - [id number] Implanted:Qty: 1 on 07/20/2024 by Tereso Gil DPM at [facility] Toe Left: Foot [employer] 12/29/2031 [id number] / / [id number] Procedures Procedure Name Priority Date/Time Associated Diagnosis [...] ACTIVITY Timed Study 12/12/2024 3:21 AM CDT BASIC METABOLIC PANEL Routine 12/12/2024 3:21 AM CDT CBC WITH DIFFERENTIAL Routine 12/12/2024 3:21 AM CDT PROTIME-INR Routine 12/12/2024 3:21 AM CDT POC GLUCOSE [...] WITH DIFFERENTIAL Routine 12/11/2024 5:44 AM CDT BASIC METABOLIC PANEL Routine 12/11/2024 5:44 AM CDT PHOSPHORUS Routine 12/11/2024 5:44 AM CDT MAGNESIUM LEVEL Routine 12/11/2024 5:44 AM CDT PROTIME-INR Routine 12/11/2024 5:44 AM CDT POC GLUCOSE [...] POC GLUCOSE Routine 12/10/2024 4:00 PM CDT PTT Routine 12/10/2024 3:37 PM CDT UNFRACTIONATED HEPARIN ACTIVITY Timed Study 12/10/2024 3:37 PM CDT CBC WITHOUT DIFFERENTIAL Routine 12/10/2024 3:37 PM CDT POC GLUCOSE Routine 12/10/2024 11:31 AM CDT EKG 12-LEAD Stat 12/10/2024 8:58 AM CDT POC GLUCOSE Routine 12/10/2024 7:35 AM CDT POC GLUCOSE Routine 12/10/2024 5:15 AM CDT PROTIME-INR Routine 12/10/2024 4:11 AM CDT CBC WITH DIFFERENTIAL Stat 12/10/2024 4:10 AM CDT COMPREHENSIVE METABOLIC PANEL Stat 12/10/2024 4:10 AM CDT MAGNESIUM LEVEL Stat 12/10/2024 4:10 AM CDT PHOSPHORUS Stat 12/10/2024 4:10 AM CDT TROPONIN 6 HR, 5TH GEN Timed Study 4:10 AM CDT POC GLUCOSE Routine 12/10/2024 1:57 AM CDT EXTRA TUBE (URINE [place]) Stat 12/10/2024 1:25 AM CDT URINALYSIS W/REFLEX MICROSCOPIC Stat 12/10/2024 1:25 AM CDT RESPIRATORY PATHOGEN PCR PANEL Stat 12/10/2024 12:34 AM CDT RT ASSESS AND TREAT Stat 12/09/2024 11:43 PM CDT LACTIC ACID Stat 12/09/2024 10:54 PM CDT TROPONIN 2 HR, 5TH GEN Timed Study 10:54 PM CDT BLOOD CULTURE Stat 12/09/2024 10:54 PM CDT BLOOD CULTURE Stat 12/09/2024 10:50 PM CDT CTA CHEST W AND/OR WO CONTRAST Stat 12/09/2024 10:39 PM CDT PROTIME-INR Stat 12/09/2024 8:12 PM CDT D-DIMER Stat 12/09/2024 8:12 PM CDT BLOOD GAS VENOUS Stat 12/09/2024 7:48 PM CDT EKG 12-LEAD Stat 12/09/2024 6:58 PM CDT XR CHEST PA OR AP 1 VW Stat 6:27 PM CDT MAGNESIUM LEVEL Stat 12/09/2024 6:09 PM CDT BRAIN NATRIURETIC PEPTIDE, BNP OR PROBNP Stat 12/09/2024 6:09 PM CDT TROPONIN BASELINE, 5TH GEN Stat 12/09/2024 6:09 PM CDT COMPREHENSIVE METABOLIC PANEL Stat 12/09/2024 6:09 PM CDT CBC WITH DIFFERENTIAL Stat 12/09/2024 6:09 PM CDT CARDIAC EVENT MONITOR Routine 12/07/2024 1:50 PM CDT TELEMETRY REPORT 12/05/2024 3:33 AM CDT POC GLUCOSE Routine 12/02/2024 11:41 AM CDT POC GLUCOSE Routine 12/02/2024 7:59 AM CDT BASIC METABOLIC PANEL Routine 12/02/2024 3:50 AM CDT PROTIME-INR Routine 12/02/2024 3:50 AM CDT TROPONIN 6 HR, 5TH GEN Timed Study 8:17 PM CDT POC GLUCOSE Routine 12/01/2024 7:55 PM CDT POC GLUCOSE Routine 12/01/2024 4:18 PM CDT TROPONIN 2 HR, 5TH GEN Timed Study 3:36 PM CDT XR CHEST PA OR AP 1 VW Stat 2:42 PM CDT POC GLUCOSE Routine 12/01/2024 2:19 PM CDT EKG 12-LEAD Stat 12/01/2024 2:07 PM CDT TROPONIN BASELINE, 5TH GEN Stat 12/01/2024 2:06 PM CDT POC GLUCOSE Routine 12/01/2024 1:00 PM CDT HOME O2 EVAL (DESATURATION SCREEN) Pending Discharge 12/01/2024 12:28 PM CDT PROTIME-INR Stat 12/01/2024 12:19 PM CDT BASIC METABOLIC PANEL Routine 12/01/2024 12:19 PM CDT CBC WITH DIFFERENTIAL Routine 12/01/2024 12:19 PM CDT POC GLUCOSE Routine 12/01/2024 7:58 AM CDT POC GLUCOSE Routine 11/30/2024 9:52 PM CDT MRI LUMBAR WO CONTRAST Stat 5:44 PM CDT POC GLUCOSE Routine 11/30/2024 12:58 PM CDT POC GLUCOSE Routine 11/30/2024 8:09 AM CDT BASIC METABOLIC PANEL Routine 11/30/2024 6:36 AM CDT CBC WITH DIFFERENTIAL Routine 11/30/2024 6:36 AM CDT PROTIME-INR Routine 11/30/2024 6:36 AM CDT POC GLUCOSE Routine 11/30/2024 2:06 AM CDT POC GLUCOSE Routine 11/29/2024 10:50 PM CDT BASIC METABOLIC PANEL Timed Study 11/29/2024 9:33 PM CDT POC GLUCOSE Routine 11/29/2024 7:56 PM CDT BASIC METABOLIC PANEL Stat 11/29/2024 6:16 PM CDT POC GLUCOSE Routine 11/29/2024 5:39 PM CDT POC GLUCOSE Routine 11/29/2024 11:21 AM CDT POC GLUCOSE Routine 11/29/2024 7:58 AM CDT PROTIME-INR Stat 11/29/2024 5:42 AM CDT BASIC METABOLIC PANEL Stat 11/29/2024 5:42 AM CDT CBC WITH DIFFERENTIAL Stat 11/29/2024 5:42 AM CDT EKG 12-LEAD Stat 11/28/2024 7:25 PM CDT XR CHEST PA OR AP 1 VW Stat 6:09 PM CDT BRAIN NATRIURETIC PEPTIDE, BNP OR PROBNP Stat 11/28/2024 5:48 PM CDT COMPREHENSIVE METABOLIC PANEL Stat 11/28/2024 5:48 PM CDT CBC WITH DIFFERENTIAL Stat 11/28/2024 5:48 PM CDT RESPIRATORY PATHOGEN PCR PANEL Stat 11/28/2024 5:48 PM CDT CRITICAL CARE Routine 11/28/2024 5:23 PM CDT CTA CHEST W AND/OR WO CONTRAST Stat 11/27/2024 6:50 PM CDT PROTIME-INR Stat 11/27/2024 5:38 PM CDT BLOOD GAS VENOUS Stat 11/27/2024 5:29 PM CDT TROPONIN 2 HR, 5TH GEN Timed Study 4:54 PM CDT XR CHEST PA OR AP 1 VW Stat 3:53 PM CDT TROPONIN BASELINE, 5TH GEN Stat 11/27/2024 2:53 PM CDT BRAIN NATRIURETIC PEPTIDE, BNP OR PROBNP Stat 11/27/2024 2:53 PM CDT COMPREHENSIVE METABOLIC PANEL Stat 11/27/2024 2:53 PM CDT CBC WITH DIFFERENTIAL Stat 11/27/2024 2:53 PM CDT EKG 12-LEAD Stat 11/27/2024 2:36 PM CDT TELEMETRY REPORT 11/24/2024 3:12 AM CDT POC GLUCOSE Routine 11/23/2024 12:23 PM CDT POC GLUCOSE Routine 11/23/2024 8:37 AM CDT HOME O2 EVAL (DESATURATION SCREEN) Routine 11/23/2024 12:16 AM CDT POC GLUCOSE Routine 11/22/2024 9:45 PM CDT POC GLUCOSE Routine 11/22/2024 5:02 PM CDT US VENOUS DOPPLER LEG LEFT Routine 11/22/2024 2:42 PM CDT POC GLUCOSE Routine 11/22/2024 12:13 PM CDT POC GLUCOSE Routine 11/22/2024 7:58 AM CDT RT ASSESS AND TREAT Routine 11/22/2024 1 :27 AM CDT POC GLUCOSE Routine 11/22/2024 1:00 AM CDT CBC WITH DIFFERENTIAL Routine 11/22/2024 12:44 AM CDT BASIC METABOLIC PANEL Routine 11/22/2024 12:44 AM CDT PROTIME-INR Stat 11/22/2024 12:44 AM CDT RT ASSESS AND TREAT Stat 11/21/2024 11:08 PM CDT COPD EDUCATION RT Stat 11/21/2024 11:08 PM CDT RESPIRATORY PATHOGEN PCR PANEL Stat 11/21/2024 10:06 PM CDT BLOOD GAS ARTERIAL Stat 11/21/2024 9: 59 PM CDT XR SHOULDER 2+ VW RIGHT Stat 11/21/2024 8:27 PM CDT IRON, TIBC, AND PERCENT SATURATION Stat 11/21/2024 7:37 PM CDT BRAIN NATRIURETIC PEPTIDE, BNP OR PROBNP Stat 11/21/2024 7:37 PM CDT COMPREHENSIVE METABOLIC PANEL Stat 11/21/2024 7:37 PM CDT CBC WITH DIFFERENTIAL Stat 11/21/2024 7:37 PM CDT XR CHEST PA OR AP 1 VW Stat 7:25 PM CDT EKG 12-LEAD Stat 11/21/2024 7:21 PM CDT TROPONIN 2 HR, 5TH GEN Timed Study 8:24 PM CDT EKG 12-LEAD Stat 11/18/2024 7:55 PM CDT XR HIP 2 OR 3 VIEWS RT Stat 6:05 PM CDT XR TIBIA AND FIBULA 2 VW LEFT Stat 11/18/2024 6:05 PM CDT XR ANKLE 3+ VW LEFT Stat 11/18/2024 6 :05 PM CDT DIFFERENTIAL, MANUAL Stat 11/18/2024 5:59 PM CDT LACTIC ACID Stat 11/18/2024 5:59 PM CDT MAGNESIUM LEVEL Stat 11/18/2024 5:59 PM CDT TROPONIN BASELINE, 5TH GEN Stat 11/18/2024 5:59 PM CDT BRAIN NATRIURETIC PEPTIDE, BNP OR PROBNP Stat 11/18/2024 5:59 PM CDT COMPREHENSIVE METABOLIC PANEL Stat 11/18/2024 5:59 PM CDT PTT Stat 11/18/2024 5:59 PM CDT PROTIME-INR Stat 11/18/2024 5:59 PM CDT CBC WITH DIFFERENTIAL Stat 11/18/2024 5:59 PM CDT BLOOD GAS ARTERIAL Stat 11/18/2024 5: 27 PM CDT XR CHEST PA OR AP 1 VW Stat 5:21 PM CDT RT ASSESS AND TREAT Stat 11/18/2024 5 :13 PM CDT TELEMETRY REPORT 11/17/2024 12:49 PM CDT POC GLUCOSE Routine 11/16/2024 12:27 PM CDT [...] PCR PANEL Stat 11/08/2024 4:36 AM CDT EKG 12-LEAD Stat 11/08/2024 4:34 AM CDT BLOOD GAS ARTERIAL Stat 11/08/2024 [...] CRITICAL CARE Routine 09/12/2024 9:09 PM CDT LIPID PANEL Routine 02/19/2024 5:29 AM 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 MICROALBUMIN/CREATININ E RATIO, RANDOM UR Routine 02/26/2023 3:01 PM 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 Type 2 diabetes mellitus without complication, without long-term current use of insulin ([facility]) Wellness examination CERV/VAG CYTO SCREEN PAP W/HPV Routine 01/06/2023 12:00 AM CDT Wellness examination MAMMO DIAGNOSTIC UNI RIGHT W OR WO CAD Routine 01/24/2011 10:03 AM CDT Lump or mass in breast from Last 3 Months or Most Recently Relevant to Health Maintenance Results * (ABNORMAL) POC GLUCOSE (12/13/2024 11:39 AM CDT) Only the most recent of171 resultswithin the time period is included. GLUCOSE POC 230(H) 74 - 99 mg/dL 12/13/2024 11:39 AM CDT [facility] SPECIMEN SOURCE, GLUCOSE POC Capillary 12/13/2024 11:39 AM CDT [facility] Blood, whole 12/13/2024 11:3 9 AM CDT 12/13/2024 12:02 PM CDT us Otis Chen MD POINT OF CARE TESTING Final Res ult [facility] YAKELIN # [id number] [address] [place] [address] * (ABNORMAL) BASIC METABOLIC PANEL (12/13/2024 6:22 AM CDT) Only the most recent of22 resultswithin the time period is included. SODIUM 142 136 - 145 mmol/L 12/13/2024 7:28 AM T [facility] POTASSIUM 3.9 3.5 - 5.1 mmol/L 12/13/2024 7:28 AM [facility] Comment:Slightly hemolyzed. Result may be falsely elevated. CHLORIDE 104 98 - 107 mmol/L 12/13/2024 7:28 AM [facility] CO2 28 22 - 29 mmol/L 12/13/2024 7:28 AM [facility] CALCIUM 9.4 8.6 - 10.0 mg/dL 12/13/2024 7:28 AM [facility] BUN 17 6 - 20 mg/dL 12/13/2024 7:28 AM [facility] CREATININE 0.49(L) 0.51 - 0.95 mg/dL 12/13/2024 7:28 AM [facility] GLUCOSE 152(H) 74 - 99 mg/dL 12/13/2024 7:28 AM [facility] GFR >60 >=60 mL/min/1. 73 sq meter 12/13/2024 7:28 AM [facility] Comment:eGFR calculated with 2020 CKD-EPI equation. Vegetarian diet, extremely high or low muscle mass, and may affect results. Cystatin C with Glomerular Filtration Rate is a suitable alternative for these patients. ANION GAP 10 9 - 20 mmol/L 12/13/2024 7:28 AM CDT [facility] Blood Venipuncture / Unknown 12/13/2024 6:22 AM CDT 12/13/2024 6:48 AM CDT us Otis Chen MD CHEMISTRY ORDERABLES Final Resu lt [facility] CLIA # [id number] [address] [address] [place] [address] * (ABNORMAL) PROTIME-INR (12/13/2024 1:21 AM CDT) Only the most recent of34 resultswithin the time period is included. PROTIME 27.3(H) 12.7 - 14.9 Seconds 12/13/2024 2:04 AM CDT [facility] INR 2.4(H) 0.8 - 1.2 12/13/2024 2:04 AM CDT [facility] Blood Venipuncture / Unknown 12/13/2024 1:21 AM CDT 12/13/2024 1:31 AM CDT Narrative [facility] - 12/13/2024 2:04 AM CDT Expected Values for INR: DVT/PE Goal INR 2.5; range 2.0 - 3.0 Valve Replacement Tissue Goal INR 2.5; range 2.0 - 3.0 Valve Replacement Mechanical Goal INR 3.0; range 2.5 - 3.5 POST-WV Goal INR 2.5; range 2.0 - 3.0 or Goal INR 3.0; range 2.5 - 3.5 Atrial Fibrillation Goal INR 2.5; range 2.0 - 3.0 Ischemic Stroke Goal INR 2.5; range 2.0 - 3.0 us Efraín Dey DO HEMATOLOGY ORDERABLES Final Result Performing Organization Address City/[facility]/ZIP Co de Phone Number [facility] CLIA # [id number] [address] [place] [address] [place] [address] * (ABNORMAL) DRUG SCREEN, URINE (12/12/2024 6:02 PM CDT) [facility] AMPHETAMINE QUAL, URINE Negative Negative 12/12/2024 6:53 PM CDT [facility] BARBITURATE QUAL, URINE Negative Negative 12/12/2024 6:53 PM CDT [facility] BENZODIAZEPINE QUAL, URINE Negative Negative 12/12/2024 6:53 PM CDT [facility] COCAINE QUAL URINE Negative Negative 12/12/2024 6:53 PM CDT [facility] OPIATE QUAL, URINE Presumptive Positive(A) Negative 12/12/2024 6:53 PM CDT [facility] CANNABINOIDS QUAL, URINE Negative Negative 12/12/2024 6:53 PM CDT [facility] OXYCODONE QUAL, URINE Negative Negative 12/12/2024 6:53 PM CDT [facility] METHADONE QUAL, URINE Negative Negative 12/12/2024 6:53 PM CDT [facility] FENTANYL QUAL, URINE Negative Negative 12/12/2024 6:53 PM CDT [facility] CREATININE, URINE 127.1 29.0 - 226.0 mg/dL 12/12/2024 6:53 PM T [facility] Comment:Reference Range vari es with fluid intake and diet. Urine URINE SPECIMEN OBTAINED BY CLEAN CATCH PROCEDURE / Unknown Collection / Unknown 12/12/2024 6:02 PM CDT 12/12/2024 6:10 PM CDT Narrative [facility] - 12/12/2024 6:53 PM CDT This test [...] Otis Chen MD URINE ORDERABLES Final Result [facility] CLIA # [id number] [address] [address] * EKG 12-LEAD (12/12/2024 5:42 PM CDT) Only the most recent of21 resultswithin the time period is included. 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1965 Requested By: Order Number: [id number] Reading MD: Shayy Givens Measurements Intervals [place] Rate: 85 P: 0 UT: 120 QRS: 37 QRSD: 86 T: 18 QT: 374 QTc: 445 Interpretive Statements Ectopic atrial rhythm Inferior infarct, age undetermined Abnormal ECG Electronically Signed On 12-13-2024 6:49:12 CDT by Shayy Givens Procedure Note Shayy Givens MD - 12/13/[address] [address] Test Date: 2024-12-12 Pat Name: LE DIAZ Department: 12 Room: [facility] 01 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: Female 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1965 Requested By: Order Number: [id number] Reading MD: Shayy Givens Measurements Intervals [place] Rate: 85 P: 0 UT: 120 QRS: 37 QRSD: 86 T: 18 QT: 374 QTc: 445 Interpretive Statements Ectopic atrial rhythm Inferior infarct, age undetermined Abnormal ECG Electronically Signed On 12-13-2024 6:49:12 CDT by Shayy Givens us Otis Chen MD ECG ORDERABLES Final Result INTERFACE SYSTEM Refer to clinic/hospital department * CT HEAD WO CONTRAST (12/12/2024 3:11 PM CDT) Only the most recent of3 [...] W/ CONTRAST AGENT (12/12/2024 2:35 PM CDT) Only the most recent of2 resultswithin the time period is included. EJECTION FRACTION 45 INTERFACE SYSTEM 12/12/2024 12:4 7 PM CDT Narrative INTERFACE SYSTEM - 12/12/2024 9:11 PM CDT [facility] Cardiovascular Services Echocardiography Laboratory [address] [place] [address] Transthoracic Echocardiography Patient: Le Diaz Study ID: ECHO COMPLETE - Gender: Kingsley : 1965 Age: 59 Room: [facility] Study Date: 12/12/2024 Pt Status: Inpatient Study Time: 12:47:40 PM CSN #: [id number] Ordering:Otis Chen Certified Cytotechnologist: MONTY Indications and History: Syncope. Summary and [...] S 1.6 cm/m^2 Legend: (L) and (H) robbie values outside specified reference range. [facility] Echo Labs are accredited with the [facility] Accreditation Commission - Echocardiography. Prepared and Electronically Authenticated Toni Leija Confirmed 12/12/2024 21:11 Procedure Note Toni Leija MD - 12/12/2024 [facility] Cardiovascular Services Echocardiography Laboratory [address] [place] [address] Transthoracic Echocardiography Patient: Le Diaz Study ID: ECHOCOMPLETE - Gender: Kingsley : 1965 Age: 59 Room: [facility] Study Date: 12/12/2024 Pt Status: Inpatient Study Time: 12:47:40 PM CSN #: [id number] Ordering:Otis Chen Certified Cytotechnologist: MONTY Indications and History: Syncope. Summary and [...] date: 12/12/2024. Study time: 12:47 PM. Location: [facility]. Cardiac Anatomy: LEFT VENTRICLE: The cavity size [...] diam/bsa, S 1.6cm/m^2 Legend: (L) and (H) robbie values outside specified reference range. [facility] Echo Labs are accredited with the[facility] Accreditation Commission - Echocardiography. Prepared and Electronically Authenticated Toni Leija Confirmed 12/12/2024 21:11 us Otis Chen MD ORDERABLES Final Result Performing Organization Address City/State/[facility] Co de Phone Number INTERFACE SYSTEM Refer to clinic/hospital department * (ABNORMAL) BLOOD GAS VENOUS (12/12/2024 1:38 PM CDT) Only the most recent of8 resultswithin the time period is included. PH BLOOD POC 7.39 7.32 - 7.43 12/12/2024 1:38 PM [facility] PCO2 POC 58(H) 38 - 50 mm Hg 12/12/2024 1:38 PM [facility] PO2 POC 36 25 - 40 mm Hg 12/12/2024 1:38 PM [facility] HCO3 (CALC) POC 35(H) 22 - 29 mmol/L 12/12/2024 1:38 PM [facility] HEMOGLOBIN POC 11.3(L) 12.0 - 18.0 g/dL 12/12/2024 1:38 PM T [facility] BASE EXCESS POC 10(H) -2 - 3 mmol/L 12/12/2024 1:38 PM [facility] O2 SATURATION POC 63 40 - 70 % 12/12/2024 1:38 PM CDT [facility] SODIUM POC 138 135 - 145 mmol/L 12/12/2024 1:38 PM CDT [facility] POTASSIUM POC 3.3(L) 3.5 - 4.9 mmol/L 12/12/2024 1:38 PM CDT [facility] HEMATOCRIT POC 34(L) 38 - 51 % 12/12/2024 1:38 PM CDT [facility] PH TEMP CORRECT 7.39 7.32 - 7.43 12/13/19 1:38 PM CDT [facility] PCO2 TEMP CORRECT 58(H) 38 - 50 mm Hg 12/12/2024 1:38 PM CDT [facility] PO2 TEMP CORRECT 36 25 - 40 mm Hg 12/12/2024 1:38 PM CDT [facility] SPECIMEN SOURCE, GASES POC Venous 12/12/2024 1:38 PM CDT [facility] CALCIUM IONIZED POC 4.5(L) 4.8 - 5.2 mg/dL 12/12/2024 1:38 PM T [facility] TCO2 (CALC) POC 37(H) 22 - 26 mmol/L 12/12/2024 1:38 PM CDT [facility] PUNC SITE POC No Charge 12/12/2024 1:38 PM CDT [facility] PATIENT'S TEMPERATURE POC 37.0 degrees 12/12/2024 1:38 PM CDT [facility] Blood, venous 12/12/2024 1:3 8 PM CDT 12/12/2024 1:39 PM CDT us Otis Chen MD ABG ORDERABLES Final Result [facility] CLIA # [id number] [facility] [address] [place] [address] * (ABNORMAL) UNFRACTIONATED HEPARIN MONITORING (12/12/2024 3:21 AM CDT) Only the most recent of13 resultswithin the time period is included. [facility] ANTI-XA UNFRAC HEP 0.96(HH) See Interpretation IU/mL 12/12/2024 3:50 AM T [facility] Blood Venipuncture / Unknown 12/12/2024 3:21 AM CDT 12/12/2024 3:26 AM CDT [facility] - 12/12/2024 3:50 AM CDT Therapeutic Range: PT/DVT Heparin Protocol 0.3 - 0.7 IU/ml Cardiac Heparin Protocol 0.3 - 0.6 IU/ml The reference range for this test is specific to the anticoagulant and is not appropriate for monitoring patients on a DOAC protocol. us Otis Chen MD HEMATOLOGY ORDERABLES Final Res ult [facility] CLIA # [id number] [address] [place] [address] * (ABNORMAL) CBC WITH DIFFERENTIAL (12/12/2024 3:21 AM CDT) Only the most recent of38 resultswithin the time period is included. [facility] WBC 12.7(H) 4.8 - 10.8 K/uL 12/12/2024 3:30 AM [facility] NRBCS 1(H) <1 % 12/12/2024 3:30 AM [facility] RBC 3.16(L) 4.20 - 5.40 M/uL 12/12/2024 3:30 AM [facility] HEMOGLOBIN 9.2(L) 12.0 - 16.0 g/dL 12/12/2024 3:30 AM [facility] HEMATOCRIT 29.9(L) 36.0 - 46.0 % 12/12/2024 3:30 AM [facility] MCV 94.6 84.0 - 103.0 fL 12/12/2024 3:30 AM [facility] MCH 29.1 27.0 - 34.0 pg 12/12/2024 3:30 AM [facility] MCHC 30.8 30.0 - 35.0 g/dL 12/12/2024 3:30 AM [facility] PLATELETS 201 140 - 440 K/uL 12/12/2024 3:30 AM COUNTS INCLUDE 234 BEDS AT [facility] MPV 10.8 8.9 - 12.8 fL 12/12/2024 3:30 AM COUNTS INCLUDE 234 BEDS AT [facility] RDW 18.2(H) 11.0 - 14.5 % 12/12/2024 3:30 AM [facility] RDW-STDEV 63.7(H) 37.0 - 54.0 fL 12/12/2024 3:30 AM [facility] NEUTROPHILS 65 42 - 75 % 12/12/2024 3:30 AM [facility] LYMPHOCYTES 19(L) 24 - 44 % 12/12/2024 3:30 AM [facility] MONOCYTES 15(H) 2 - 10 % 12/12/2024 3:30 AM [facility] EOSINOPHILS 0 0 - 7 % 12/12/2024 3:30 AM COUNTS INCLUDE 234 BEDS AT [facility] BASOPHILS 0 0 - 1 % 12/12/2024 3:30 AM [facility] IMMATURE GRANULOCYTES 1 0 - 2 % 12/12/2024 3:30 AM [facility] NEUTROPHIL ABSOLUTE 8.29(H) 2.00 - 8.00 K/uL 12/12/2024 3:30 AM [facility] LYMPHOCYTE ABSOLUTE 2.43 1.20 - 4.00 K/uL 12/12/2024 3:30 AM [facility] MONOCYTE ABSOLUTE 1.87(H) 0.10 - 0.60 K/uL 12/12/2024 3:30 AM [facility] EOSINOPHIL ABSOLUTE 0.00 0.00 - 0.70 K/uL 12/12/2024 3:30 AM CDT [facility] BASOPHILS ABSOLUTE 0.02 0.00 - 0.20 K/uL 12/12/2024 3:30 AM CDT [facility] IMMATURE GRANULOCYTES ABSOLUTE 0.10 0.00 - 0.10 K/uL 12/12/2024 3:30 AM CDT [facility] SMEAR REVIEWED: NA - Not Applicable 12/12/2024 3:30 AM CDT [facility] Blood Venipuncture / Unknown 12/12/2024 3:21 AM CDT 12/12/2024 3:26 AM CDT Otis Chen MD HEMATOLOGY ORDERABLES Final Res ult Performing Organization Address [facility] de Phone Number [facility] CLIA # [id number] [address] [address] [place] [address] * PHOSPHORUS (12/11/2024 5:44 AM CDT) Only the most recent of2 resultswithin the time period is included. PHOSPHORUS 2.7 2.5 - 4.5 mg/dL 12/11/2024 6:43 AM CDT [facility] Blood Venipuncture / Unknown 12/11/2024 5:44 AM CDT 12/11/2024 6:03 AM CDT Otis Chen MD CHEMISTRY ORDERABLES Final Resu lt Performing Organization Address [facility] Co de Phone Number [facility] CLIA # [id number] [address] [address] [place] [address] * MAGNESIUM LEVEL (12/11/2024 5:44 AM CDT) Only the most recent of8 resultswithin the time period is included. MAGNESIUM 1.6 1.6 - 2.6 mg/dL 12/11/2024 6:43 AM CDT [facility] Blood Venipuncture / Unknown 12/11/2024 5:44 AM CDT 12/11/2024 6:03 AM CDT Otis Chen MD CHEMISTRY ORDERABLES Final Resu lt Performing Organization Address [facility] Co de Phone Number [facility] CLIA # [id number] [address] [address] [place], [place] [address] * PTT (12/10/2024 3:37 PM CDT) Only the most recent of4 resultswithin the time period is included. PTT 26.7 24.8 - 37.2 seconds 12/10/2024 4:58 PM CDT [facility] Blood Venipuncture / Unknown 12/10/2024 3:37 PM CDT 12/10/2024 4:35 PM CDT Narrative [facility] - 12/10/2024 4:58 PM CDT Therapeutic Range: Hi-level PE/DVT heparin protocol 80.1 - 95.0 sec Lo-level PE/DVT heparin protocol 70.1 - 85.0 sec Cardiac Heparin Protocol 70.1 - 100.0 sec Otis Chen MD HEMATOLOGY ORDERABLES Final Res ult Performing Organization Address City/[facility] Co de Phone Number [facility] CLIA # [id number] [address] [address] [place], [place] [address] * (ABNORMAL) CBC WITHOUT DIFFERENTIAL (12/10/2024 3:37 PM CDT) Only the most recent of8 resultswithin the time period is included. WBC 9.8 4.8 - 10.8 K/uL 12/10/2024 4:48 PM CDT [facility] NRBCS 1(H) <1 % 12/10/2024 4:48 PM CDT [facility] RBC 3.48(L) 4.20 - 5.40 M/uL 12/10/2024 4:48 PM CDT [facility] HEMOGLOBIN 10.4(L) 12.0 - 16.0 g/dL 12/10/2024 4:48 PM CDT [facility] HEMATOCRIT 32.6(L) 36.0 - 46.0 % 12/10/2024 4:48 PM CDT [facility] MCV 93.7 84.0 - 103.0 fL 12/10/2024 4:48 PM CDT [facility] MCH 29.9 27.0 - 34.0 pg 12/10/2024 4:48 PM CDT [facility] MCHC 31.9 30.0 - 35.0 g/dL 12/10/2024 4:48 PM CDT [facility] PLATELETS 169 140 - 440 K/uL 12/10/2024 4:48 PM CDT [facility] MPV 10.7 8.9 - 12.8 fL 12/10/2024 4:48 PM CDT [facility] RDW 18.1(H) 11.0 - 14.5 % 12/10/2024 4:48 PM CDT [facility] RDW-STDEV 61.9(H) 37.0 - 54.0 fL 12/10/2024 4:48 PM CDT [facility] Blood Venipuncture / Unknown 12/10/2024 3:37 PM CDT 12/10/2024 4:35 PM CDT us Otis Chen MD HEMATOLOGY ORDERABLES Final Res ult [facility] CLIA # [id number] [facility] [address] [place], [place] [address] * (ABNORMAL) TROPONIN 6 HR, 5TH GEN (12/10/2024 4:10 AM CDT) Only the most recent of7 resultswithin the time period is included. Pathologist [facility] TROPONIN T, 6 HR 5TH GEN 14(H) <11 ng/L 12/10/2024 5:46 AM CDT [facility] DELTA 6HR TROPONIN T -6 See Interp. 12/10/2024 5:46 AM CDT [facility] Blood Venipuncture / Unknown 12/10/2024 4:10 AM CDT 12/10/2024 5:12 AM CDT Narrative [facility] - 12/10/2024 5:46 AM CDT Troponin elevated. Delta indeterminate. Delay in collection of timed specimen beyond recommended collection interval. Results must be interpreted in clinical context. us Nicolle Vo NP CHEMISTRY ORDERABLES nal Result [facility] CLIA # [id number] [address] [place] [address] * (ABNORMAL) COMPREHENSIVE METABOLIC PANEL (12/10/2024 4:10 AM CDT) Only the most recent of29 resultswithin the time period is included. [facility] SODIUM 137 136 - 145 mmol/L 12/10/2024 5:46 AM [facility] POTASSIUM 3.9 3.5 - 5.1 mmol/L 12/10/2024 5:46 AM T [facility] CHLORIDE 100 98 - 107 mmol/L 12/10/2024 5:46 AM T [facility] CO2 23 22 - 29 mmol/L 12/10/2024 5:46 AM [facility] CALCIUM 9.2 8.6 - 10.0 mg/dL 12/10/2024 5:46 AM [facility] BUN 13 6 - 20 mg/dL 12/10/2024 5:46 AM [facility] CREATININE 0.56 0.51 - 0.95 mg/dL 12/10/2024 5:46 AM T [facility] GLUCOSE 482(HH) 74 - 99 mg/dL 12/10/2024 5:46 AM [facility] TOTAL PROTEIN 6.7 6.4 - 8.3 g/dL 12/10/2024 5:46 AM [facility] ALBUMIN 3.5 3.5 - 5.2 g/dL 12/10/2024 5:46 AM T [facility] BILIRUBIN TOTAL <0.2 0.0 - 1.0 mg/dL 12/10/2024 5:46 AM [facility] ALKALINE PHOSPHATASE 146(H) 35 - 104 U/L 12/10/2024 5:46 AM [facility] AST 19 10 - 35 U/L 12/10/2024 5:46 AM [facility] Comment:Hemolysis present. R esult may be falsely elevated. ALT 24 <=35 U/L 12/10/2024 5:46 AM [facility] GFR >60 >=60 mL/min/1. 73 sq meter 12/10/2024 5:46 AM [facility] Comment:eGFR calculated with 2020 CKD-EPI equation. Vegetarian diet, extremely high or low muscle mass, and may affect results. Cystatin C with Glomerular Filtration Rate is a suitable alternative for these patients. ANION GAP 14 9 - 20 mmol/L 12/10/2024 5:46 AM [facility] Blood Venipuncture / Unknown 12/10/2024 4:10 AM CDT 12/10/2024 5:12 AM CDT us Efraín Dey DO CHEMISTRY ORDERABLES Final R esult [facility] CLIA # [id number] [address] [place] [address] * EXTRA TUBE (URINE [place]) (12/10/2024 1:25 AM CDT) Only the most recent of4 resultswithin the time period is included. Urine URINE SPECIMEN OBTAINED BY CLEAN CATCH PROCEDURE / Unknown Collection / Unknown 12/10/2024 1:25 AM CDT 12/10/2024 1:30 AM CDT us Nicolleyoung Guerrero Gilda [employer] URINE ORDERABLES Final Result [facility] CLIA # [id number] [address] [address] [place], [place] [id number] * (ABNORMAL) URINALYSIS WITH REFLEX MICROSCOPIC (12/10/2024 1:25 AM CDT) Only the most recent of4 resultswithin the time period is included. COLOR UA Pale Yellow Pale to Dark Yellow 12/10/2024 1:51 AM [facility] CLARITY UA Clear Clear 12/10/2024 1:51 AM T [facility] SPECIFIC GRAVITY UA 1.020 1.003 - 1.035 12/10/2024 1:51 AM T [facility] PH UA 5.5 5.0 - 8.0 12/10/2024 1:51 AM [facility] LEUKOCYTE ESTERASE UA Negative Negative 12/10/2024 1:51 AM [facility] NITRITE UA Negative Negative 12/10/2024 1:51 AM [facility] PROTEIN UA Trace(A) Negative 12/10/2024 1:51 AM [facility] GLUCOSE UA 2+(A) Negative 12/10/2024 1:51 AM T [facility] KETONES UA Negative Negative 12/10/2024 1:51 AM [facility] UROBILINOGEN UA 0.2 <2.0 mg/dL 1:51 AM T [facility] BILIRUBIN UA Negative Negative 12/10/2024 1:51 AM CDT [facility] BLOOD UA Negative Negative 12/10/2024 1:51 AM CDT [facility] WBC UA 11-25(A) 0 - 2 /hpf 12/10/2024 1:51 AM CDT [facility] RBC UA 3-5(A) 0 - 2 /hpf 12/10/2024 1:51 AM CDT [facility] BACTERIA UA 3+(A) Negative /hpf 12/10/2024 1:51 AM CDT [facility] EPITHELIAL CELLS, URINE 0-5 0 - 5 /hpf 12/10/2024 1:51 AM CDT [facility] Urine URINE SPECIMEN OBTAINED BY CLEAN CATCH PROCEDURE / Unknown Collection / Unknown 12/10/2024 1:25 AM CDT 12/10/2024 1:30 AM CDT us Nicolle Vo [employer] URINE ORDERABLES Final Result [facility] CLIA # [id number] [address] [place] [address] * RESPIRATORY PATHOGEN PCR PANEL (12/10/2024 12:34 AM CDT) Only the most recent of7 resultswithin the time period is included. [facility] Respiratory Pathogen PCR Panel NOT DETECTED No respiratory pathogen nucleic acids detected. 12/10/2024 1:36 AM CDT [facility] COVID-19 PCR NOT DETECTED Not Detected 12/10/2024 1:36 AM CDT [facility] Upper Respiratory ENTIRE NASOPHARYNX / Unknown Collection / Unknown 12/10/2024 12:34 AM CDT 12/10/2024 12:39 AM CDT Narrative [facility] - 12/10/2024 1:36 AM CDT The Film [...] ORDER JANAY Final Result Performing Organization Address [facility] Co de Phone Number [facility] CLIA # [id number] [address] [address] * (ABNORMAL) TROPONIN 2 HR, 5TH GEN (12/09/2024 10:54 PM CDT) Only the most recent of11 resultswithin the time period is included. TROPONIN T, 2 HR 5TH GEN 23(H) <=10 ng/L 12/10/2024 12:03 AM CDT [facility] DELTA 2HR TROPONIN T 3 See Interp. 12/10/2024 12:03 AM CDT [facility] Blood Venipuncture / Unknown 12/09/2024 10:54 PM CDT 12/09/2024 11:03 PM CDT Narrative [facility] - 12/10/2024 12:03 AM CDT Troponin elevated. Delta not changing. Delay in collection of timed specimen beyond recommended collection interval. Results must be interpreted in clinical context. us Nicolle Vo [employer] CHEMISTRY ORDERABLES Fi nal Result Performing Organization Address [facility] Co de Phone Number [facility] CLIA # [id number] [address] [address] * LACTIC ACID (12/09/2024 10:54 PM CDT) Only the most recent of9 resultswithin the time period is included. LACTIC ACID 1.9 <=2.0 mmol/L 12/09/2024 11:23 PM CDT [facility] Blood Venipuncture / Unknown 12/09/2024 10:54 PM CDT 12/09/2024 10:59 PM CDT us Mikey Rudolph MD CHEMISTRY ORDERABLES Fin al Result [facility] CLIA # [id number] [address] [address] [place] [address] * CTA CHEST W AND/OR WO CONTRAST (12/09/2024 10:39 PM CDT) Only the most recent of3 [...] lobe. 5. Additional incidental findings as above. us Mikey Rudolph MD CT ORDERABLES Final Re sult * (ABNORMAL) D-DIMER (12/09/2024 8:12 PM CDT) Only the most recent of3 resultswithin the time period is included. D-DIMER QUANT 0.57(H) 0.00 - 0.50 ug/mL FEU 12/09/2024 8:25 PM CDT [facility] Blood Venipuncture / Unknown 12/09/2024 8:12 PM CDT 12/09/2024 8:22 PM CDT Narrative [facility] - 12/09/2024 8:25 PM CDT D-Dimer assay [...] FEU 71-80 years: 0.71-0.80 ug/mL FEU us iMkey Rudolph MD HEMATOLOGY ORDERABLES Fi nal Result [facility] # [id number] [address] [facility] [place] [address] * XR CHEST PA OR AP 1 VW (12/09/2024 6:27 PM CDT) Only the most recent of19 [...] could reflect atelectasis or an acute infiltrate. Nicolle Vo NP DIAGNOSTIC IMAGING ORDE RABLES Final Result * (ABNORMAL) TROPONIN BASELINE, 5TH GEN (12/09/2024 6:09 PM CDT) Only the most recent of14 resultswithin the time period is included. Pathologist [facility] TROPONIN T, BASELINE 5TH GEN 20(H) <=10 ng/L 12/09/2024 7:11 PM CDT [facility] Blood Venipuncture / Unknown 12/09/2024 6:09 PM CDT 12/09/2024 6:29 PM CDT Narrative [facility] - 12/09/2024 7:11 PM CDT Troponin elevated. Nicolle Vo NP CHEMISTRY ORDERABLES Fi nal Result [facility] CLIA # [id number] [address] [place] [address] * (ABNORMAL) BRAIN NATRIURETIC PEPTIDE, BNP OR PROBNP (12/09/2024 6:09 PM CDT) Only the most recent of15 resultswithin the time period is included. PROBNP, N TERMINAL 201(H) 0 - 125 pg/mL 12/09/2024 7:11 PM CDT [facility] Comment: INTERPRETIVE COMMENT based on diagnosis: [...] Rudolph MD CHEMISTRY ORDERABLES Fin al Result [facility] LABORATORY SERVICES [facility] CLIA # [id number] [address] [place] [address] * CARDIAC EVENT MONITOR (12/07/2024 1:50 PM CDT) Narrative [facility] - 12/07/2024 1:50 PM CDT Echo Tapia MD 12/07/2024 1:50 PM Baseline: sinus 73 bpm Only tracing James Lee MD CARDIAC SERVICES ORDERABLES Fin al Result Performing Organization Address [facility] Co de Phone Number [facility] CLIA [id number] [address] [facility] [address] [place] [address], [place] [phone] * TELEMETRY REPORT (12/05/2024 3:33 AM CDT) Only the most recent of12 resultswithin the time period is included. us Provider Scanning ECG ORDERABLES Final Result * MRI LUMBAR WO CONTRAST (11/30/2024 5:44 PM CDT) Anatomical Region Laterality Modality Spine Magnetic Resonan ce 11/30/2024 5:02 PM CDT Impressions 12/01/2024 11:22 AM CDT IMPRESSION: 1. No acute fracture. 2. Mild, chronic L1 superior endplate compression fracture without marrow edema. 3. Mild multilevel degenerative changes. 4. Additional details as above. Narrative 12/01/2024 11:22 AM CDT EXAM: MRI LUMBAR WO CONTRAST DATE/TIME OF EXAM: 11/30/2024 5:44 PM REASON FOR STUDY: Compression fracture, lumbar, L1 compression fracture DIAGNOSIS: Acute respiratory failure with hypoxia and hypercapnia (CMS/HCC); Acute respiratory failure with hypoxia and hypercapnia (CMS/HCC) COMPARISON: November 08, 2024 INTRAVENOUS CONTRAST: None TECHNIQUE: MR Lumbar spine performed without intravenous contrast. FINDINGS: For the purposes of this dictation, the last well formed intervertebral disc space will be labeled L5-S1. Bones: No evidence of an acute fracture. Mild, chronic L1 superior endplate compression fracture without marrow edema. The bones are diffusely demineralized. Somewhat heterogeneous marrow signal, nonspecific. Endplate marrow (Modic) changes: No significant endplate marrow change. Alignment: Slight retrolisthesis of L2 on L3 and L3 on L4. Slight anterolisthesis L4 on L5. Conus: The conus medullaris terminates at T12-L1 vertebral body level. Soft Tissue: No acute abnormality. Paraspinal muscular atrophy. T12-L1: No significant intervertebral disc space narrowing. No significant canal or foraminal stenosis. L1-L2: No significant intervertebral disc space narrowing. No significant canal or foraminal stenosis. L2-L3: No significant intervertebral disc space narrowing. Shallow broad-based disc bulge. Facet arthropathy. No significant canal or foraminal stenosis. L3-L4: No significant intervertebral disc space narrowing. Shallow disc bulge. Facet arthropathy. No significant canal or foraminal stenosis. L4-L5: No significant intervertebral disc space narrowing. Slight anterolisthesis. Shallow broad-based disc bulge. Facet arthropathy. Bilateral subarticular stenosis. Mild bilateral foraminal stenosis. Mild canal stenosis. L5-S1: No significant intervertebral disc space narrowing. No significant canal or foraminal stenosis. Procedure Note Rosangela Taylor MD - 12/01/2024 EXAM: MRI LUMBAR WO CONTRAST DATE/TIME OF EXAM: 11/30/2024 5:44 PM REASON FOR STUDY: Compression fracture, lumbar, L1 compression fracture DIAGNOSIS: Acute respiratory failure with hypoxia and hypercapnia (CMS/HCC); Acute respiratory failure with hypoxia and hypercapnia (CMS/HCC) COMPARISON: November 08, 2024 INTRAVENOUS CONTRAST: None TECHNIQUE: MR Lumbar spine performed without intravenous contrast. FINDINGS: For the purposes of this dictation, the last well formed intervertebral disc space will be labeled L5-S1. Bones: No evidence of an acute fracture. Mild, chronic L1 superior endplate compression fracture without marrow edema. The bones are diffusely demineralized. Somewhat heterogeneous marrow signal, nonspecific. Endplate marrow (Modic) changes: No significant endplate marrow change. Alignment: Slight retrolisthesis of L2 on L3 and L3 on L4. Slight anterolisthesis L4 on L5. Conus: The conus medullaris terminates at T12-L1 vertebral body level. Soft Tissue: No acute abnormality. Paraspinal muscular atrophy. T12-L1: No significant intervertebral disc space narrowing. No significant canal or foraminal stenosis. L1-L2: No significant intervertebral disc space narrowing. No significant canal or foraminal stenosis. L2-L3: No significant intervertebral disc space narrowing. Shallow broad-based disc bulge. Facet arthropathy. No significant canal or foraminal stenosis. L3-L4: No significant intervertebral disc space narrowing. Shallow disc bulge. Facet arthropathy. No significant canal or foraminal stenosis. L4-L5: No significant intervertebral disc space narrowing. Slight anterolisthesis. Shallow broad-based disc bulge. Facet arthropathy. Bilateral subarticular stenosis. Mild bilateral foraminal stenosis. Mild canal stenosis. L5-S1: No significant intervertebral disc space narrowing. No significant canal or foraminal stenosis. IMPRESSION: 1. No acute fracture. 2. Mild, chronic L1 superior endplate compression fracture without marrow edema. 3. Mild multilevel degenerative changes. 4. Additional details as above. Matilde Nix MD MR ORDERABLES Final Result * Critical Care (11/28/2024 5:23 PM CDT) Narrative Cassius Sanderson MD - 11/28/2024 5:23 PM CDT Cassius Sanderson MD 11/29/2024 9:28 PM Critical Care Performed by: Cassius Sanderson MD Authorized by: Cassius Sanderson MD Critical care provider statement: Critical care time (minutes): 35 Critical care was necessary to treat or prevent imminent or life-threatening deterioration of the following conditions: Cardiac failure and respiratory failure Critical care was time spent personally by me on the following activities: Blood draw for specimens, development of treatment plan with patient or surrogate, discussions with consultants, evaluation of patient's response to treatment, examination of patient, obtaining history from patient or surrogate, review of old charts, re-evaluation of patient's condition, pulse oximetry, ordering and review of radiographic studies, ordering and review of laboratory studies and ordering and performing treatments and interventions us Cassius Sanderson MD PROCEDURE/MINOR S URGICAL ORDERABLES Final Result * US VENOUS DOPPLER LEG LEFT (11/22/2024 2:42 PM CDT) Anatomical Region Laterality Modality Lower Extremity Ultrasound 11/22/2024 2:22 PM CDT Narrative 11/23/2024 9:28 AM CDT [facility] Cardiovascular Services Noninvasive Vascular Laboratory [address] [place] [address] Noninvasive Vascular Lab Venous Exam Unilateral Lower Extremity Duplex Patient: Le Diaz Study ID: US VENOUS DOPPLE Gender: F : 1965 Age: 59 Room: Height: Weight: BSA: Pt status: Inpatient Study Date: 11/22/2024 Study Time: 02:22:45 PM BSA: Ordering: Michael lBank Interpreting:Kyler Anne Certified Cytotechnologist: CORKY Indications: DVT. Summary Impression: No evidence of deep or superficial venous thrombosis involving the left lower extremity and right common femoral vein. Study data: Left lower extremity venous duplex evaluation. Doppler flow study including spectral analysis, color and hollingsworth scale imaging. Location: Bedside. Patient status: Inpatient. Study status: Routine. Procedure: A vascular evaluation was performed. Image quality was good. Venous flow and imaging: - Left common femoral Patent; Normal phasicity; spontaneous; compressible; normal augmentation - Left profunda femoral Patent; Normal phasicity; spontaneous; compressible; normal augmentation - Left femoral Patent; Normal phasicity; spontaneous; compressible; normal augmentation - Left popliteal Patent; Normal phasicity; spontaneous; compressible; normal augmentation - Left small saphenous Patent; Normal phasicity; spontaneous; compressible; normal augmentation - Left posterior tibial Patent; Compressible; normal augmentation - Left peroneal Patent; Compressible; normal augmentation - Left great saphenous Patent; Normal phasicity; spontaneous; compressible; normal augmentation - Right common femoral Patent; Normal phasicity; spontaneous; compressible; normal augmentation [facility] is accredited with the [facility] Commission for the Accreditation of Vascular Laboratories (ICAVL) Prepared and Electronically Authenticated Kyler Anne Confirmed 11/23/2024 09:28 Procedure Note Kyler Anne MD - 11/23/2024 [facility] Cardiovascular Services Noninvasive Vascular Laboratory [address] [place] [address] Noninvasive Vascular Lab Venous Exam Unilateral Lower Extremity Duplex Patient: Le Diaz Study ID: US VENOUS DOPPLE Gender: F : 1965 Age: 59 Room: Height: Weight: BSA: Pt status: Inpatient Study Date: 11/22/2024 Study Time: 02:22:45 PM BSA: Ordering: Michael Blank Interpreting:Kyler Anne Certified Cytotechnologist: CORKY Indications: DVT. Summary Impression: No evidence of deep or superficial venous thrombosis involving the leftlower extremity and right common femoral vein. Study data: Left lower extremity venous duplex evaluation. Dopplerflow study including spectral analysis, color and hollingsworth scale imaging.Location: Bedside. Patient status: Inpatient. Study status: Routine.Procedure: A vascular evaluation was performed. Image quality was good. Venous flow and imaging: - Left common femoral Patent; Normal phasicity; spontaneous;compressible; normal augmentation - Left profunda femoral Patent; Normal phasicity; spontaneous;compressible; normal augmentation - Left femoral Patent; Normal phasicity; spontaneous; compressible;normal augmentation - Left popliteal Patent; Normal phasicity; spontaneous; compressible;normal augmentation - Left small saphenous Patent; Normal phasicity; spontaneous;compressible; normal augmentation - Left posterior tibial Patent; Compressible; normal augmentation - Left peroneal Patent; Compressible; normal augmentation - Left great saphenous Patent; Normal phasicity; spontaneous;compressible; normal augmentation - Right common femoral Patent; Normal phasicity; spontaneous;compressible; normal augmentation [facility] is accredited with the[employer]tersocietal Commission for the Accreditation of Vascular Laboratories (ICAVL) Prepared and Electronically Authenticated Kyler Anne Confirmed 11/23/2024 09:28 us Michael Blank MD US ORDERABLES Final Result * (ABNORMAL) BLOOD GAS ARTERIAL (11/21/2024 9:59 PM CDT) Only the most recent of7 resultswithin the time period is included. [facility] PH BLOOD POC 7.39 7.35 - 7.45 11/21/2024 9:59 PM [facility] PCO2 POC 47(H) 35 - 45 mm Hg 11/21/2024 9:59 PM [facility] PO2 POC 87 80 - 105 mm Hg 11/21/2024 9:59 PM [facility] HCO3 (CALC) POC 29(H) 22 - 26 mmol/L 11/21/2024 9:59 PM [facility] HEMOGLOBIN POC 10.9(L) 12.0 - 18.0 g/dL 11/21/2024 9:59 PM [facility] BASE EXCESS POC 4(H) -2 - 3 mmol/L 11/21/2024 9:59 PM [facility] O2 SATURATION POC 97 95 - 98 % 11/21/2024 9:59 PM [facility] SODIUM POC 136(L) 138 - 146 mmol/L 11/21/2024 9:59 PM [facility] POTASSIUM POC 3.7 3.5 - 4.9 mmol/L 11/21/2024 9:59 PM [facility] HEMATOCRIT POC 33(L) 38 - 51 % 11/21/2024 9:59 PM [facility] PH TEMP CORRECT 7.39 7.35 - 7.45 11/21/2024 9:59 PM [facility] PCO2 TEMP CORRECT 47(H) 35 - 45 mm Hg 11/21/2024 9:59 PM [facility] PO2 TEMP CORRECT 87 80 - 105 mm Hg 11/21/2024 9:59 PM [facility] SPECIMEN SOURCE, GASES POC Arterial 11/21/2024 9:59 PM [facility] CALCIUM IONIZED POC 5.0 4.8 - 5.2 mg/dL 11/21/2024 9:59 PM [facility] TCO2 (CALC) POC 30(H) 23 - 27 mmol/L 11/21/2024 9:59 PM CDT [facility] LITER FLOW 4.0 L/min 11/21/2024 9:59 PM CDT [facility] PUNC SITE POC ART PUNCT 11/21/2024 9:59 PM CDT [facility] SOURCE OF OXYGEN POC Cannula 11/21/2024 9:59 PM CDT [facility] Blood, arterial 11/21/2024 9 :59 PM CDT 11/21/2024 10:01 PM CDT us Kay Majano MD ABG ORDERABLES Jana l Result [facility] CLIA # [id number] [address] [place] [address] * XR SHOULDER 2+ VW RIGHT (11/21/2024 8:27 PM CDT) Anatomical Region Laterality Modality Upper Extremity Computed Radiogr aphy 11/21/2024 8:27 PM CDT Impressions 11/21/2024 10:40 PM CDT IMPRESSION: No acute abnormality. Moderate osteoarthritis of the glenohumeral joint. Narrative 11/21/2024 10:40 PM CDT EXAM: XR SHOULDER 2+ VW RIGHT DATE/TIME OF EXAM: 11/21/2024 8:27 PM REASON FOR EXAM: Injury DIAGNOSIS: See Reason for Exam COMPARISON: Right shoulder x-ray 10/05/2010 FINDINGS: No evidence of a fracture, dislocation, or acute joint space abnormality. The acromioclavicular and coracoclavicular distances appear anatomic. Moderate degenerative changes of the glenohumeral joint. Mild degenerative changes of the acromioclavicular joint. Procedure Note Anu Mackay MD - 11/21/2024 EXAM: XR SHOULDER 2+ VW RIGHT DATE/TIME OF EXAM: 11/21/2024 8:27 PM REASON FOR EXAM: Injury DIAGNOSIS: See Reason for Exam COMPARISON: Right shoulder x-ray 10/05/2010 FINDINGS: No evidence of a fracture, dislocation, or acute joint space abnormality. The acromioclavicular and coracoclavicular distances appear anatomic. Moderate degenerative changes of the glenohumeral joint. Mild degenerative changes of the acromioclavicular joint. IMPRESSION: No acute abnormality. Moderate osteoarthritis of the glenohumeral joint. Kay Majano MD DIAGNOSTIC IMAGING O RDERABLES Final Result * IRON, TIBC, AND PERCENT SATURATION (11/21/2024 7:37 PM CDT) IRON 42 37 - 145 ug/dL 11/21/2024 11:54 PM CDT [facility] TIBC 289 250 - 450 ug/dL 11/21/2024 11:54 PM CDT [facility] IRON % SATURATION 15 15 - 60 % 11/21/2024 11:54 PM CDT [facility] Blood Venipuncture / Unknown 11/21/2024 7:37 PM CDT 11/21/2024 7:57 PM CDT Derrick Maldonado MD CHEMISTRY ORDERABLES Final R esult [facility] CLIA # [id number] [address] [place] [address] * XR HIP 2 OR 3 VIEWS RT (11/18/2024 6:05 PM CDT) Anatomical Region Laterality Modality Lower Extremity Right Computed Radiogr aphy 11/18/2024 6:05 PM CDT Impressions 11/18/2024 7:19 PM CDT IMPRESSION: No acute osseous abnormality. Narrative 11/18/2024 7:19 PM CDT Exam: XR HIP 2 OR 3 VIEWS RT Date/Time of Exam: 11/18/2024 6:05 PM Reason For Exam: Injury. Diagnosis: See Reason for Exam. Comparison: None. Findings: Bony detail is limited by technique and body habitus. There is no definitive evidence of an acute fracture. The joints are anatomically aligned. There are mild degenerative changes. The soft tissues appear grossly unremarkable. Procedure Note Meir Chawla, - 11/18/2024 Exam: XR HIP 2 OR 3 VIEWS RT Date/Time of Exam: 11/18/2024 6:05 PM Reason For Exam: Injury. Diagnosis: See Reason for Exam. Comparison: None. Findings: Bony detail is limited by technique and body habitus. There is no definitive evidence of an acute fracture. The joints are anatomically aligned. There are mild degenerative changes. The soft tissues appear grossly unremarkable. IMPRESSION: No acute osseous abnormality. us Tresa Mueller MD DIAGNOSTIC IMAGING ORDERABL ES Final Result * XR TIBIA AND FIBULA 2 VW LEFT (11/18/2024 6:05 PM CDT) Anatomical Region Laterality Modality Lower Extremity Computed Radiogr aphy 11/18/2024 6:05 PM CDT Impressions 11/18/2024 7:18 PM CDT IMPRESSION: Soft tissue swelling without evidence of an acute osseous abnormality. Narrative 11/18/2024 7:18 PM CDT Exam: XR TIBIA AND FIBULA 2 VW LEFT Date/Time of Exam: 11/18/2024 6:05 PM Reason For Exam: Injury. Diagnosis: See Reason for Exam. Comparison: 11/11/2024. Findings: There is soft tissue swelling. There is no evidence of an acute fracture, dislocation or significant arthrosis. 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 Procedure Note Meir Chawla, - 11/18/2024 Exam: XR TIBIA AND FIBULA 2 VW LEFT Date/Time of Exam: 11/18/2024 6:05 PM Reason For Exam: Injury. Diagnosis: See Reason for Exam. Comparison: 11/11/2024. Findings: There is soft tissue swelling. There is no evidence of an acute fracture, dislocation or significant arthrosis. 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 IMPRESSION: Soft tissue swelling without evidence of an acute osseous abnormality. us Tresa Mueller MD DIAGNOSTIC IMAGING ORDERABL ES Final Result * XR ANKLE 3+ VW LEFT (11/18/2024 6:05 PM CDT) Anatomical Region Laterality Modality Ankle / Foot Computed Radiogr aphy 11/18/2024 6:05 PM CDT Impressions 11/18/2024 6:54 PM CDT IMPRESSION: Soft tissue swelling without evidence of an acute osseous abnormality. Narrative 11/18/2024 6:54 PM CDT Exam: XR ANKLE 3+ VW LEFT Date/Time of Exam: 11/18/2024 6:05 PM Reason For Exam: Injury. Diagnosis: See Reason for Exam. Comparison: None. Findings: There is a prominent degree of soft tissue swelling. There is no evidence of an acute fracture, dislocation or significant arthrosis. 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 Procedure Note Meir Chawla, DO - 11/18/2024 Exam: XR ANKLE 3+ VW LEFT Date/Time of Exam: 11/18/2024 6:05 PM Reason For Exam: Injury. Diagnosis: See Reason for Exam. Comparison: None. Findings: There is a prominent degree of soft tissue swelling. There is no evidence of an acute fracture, dislocation or significant arthrosis. 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 IMPRESSION: Soft tissue swelling without evidence of an acute osseous abnormality. us Tresa Mueller MD DIAGNOSTIC IMAGING ORDERABL ES Final Result * MANUAL DIFFERENTIAL (11/18/2024 5:59 PM CDT) Only the most recent of3 resultswithin the time period is included. PLATELET EST. Adequate 11/18/2024 7:04 PM CDT [facility] [place] ANISOCYTOSIS 3+ /hpf 11/18/2024 7:04 PM CDT [facility] [place] POIKILOCYTES 1+ /hpf 11/18/2024 7:04 PM CDT [facility] [place] POLYCHROMASIA 1+ /hpf 11/18/2024 7:04 PM CDT [facility] COTTON-JOLLY BODIES Present /hpf 11/18/2024 7:04 PM CDT [facility] Blood Venipuncture / Unknown 11/18/2024 5:59 PM CDT 11/18/2024 6:04 PM CDT Tresa Mueller MD HEMATOLOGY ORDERABLES COM F inal Result Performing Organization Address City/[facility]/ZIP Co de Phone Number [facility] CLIA # [id number] [address] [place] [address] * MRSA PCR RAPID SCREEN (11/14/2024 8:47 AM CDT) [facility] MRSA PCR RESULT MRSA not detected MRSA not detected 11/14/2024 10:11 AM CDT [facility] Surveillance ANTERIOR NARES SWAB / Unknown Collection / Unknown 11/14/2024 8:47 AM CDT 11/14/2024 8:52 AM CDT Narrative [facility] - 11/14/2024 10:11 AM CDT This [...] RAL ORDERABLES Final Result Performing Organization Address City/[facility]/ZIP Co de Phone Number [facility] CLIA # [id number] [address] [place] [address] * (ABNORMAL) POC LACTIC ACID (11/13/2024 1:02 PM CDT) Only the most recent of2 resultswithin the time period is included. Pathologist [facility] LACTIC ACID POC 2.7(H) <=2.0 mmol/L 11/13/2024 1:02 PM CDT [facility] SPECIMEN SOURCE, GASES POC Arterial 11/13/2024 1:02 PM CDT [facility] PUNC SITE POC ART PUNCT 11/13/2024 1:02 PM CDT [facility] Blood 11/13/2024 1:02 PM CDT 11/13/2024 1:03 PM CDT Narrative [facility] - 11/13/2024 1:02 PM CDT References ranges displayed are for Arterial samples. us Austin Robertson MD POINT OF CARE TEST ING Final Result [facility] CLIA # [id number] [facility] [address] * CTA CHEST + ABD/PEL W CONTRAST [...] IMPRESSION: No acute fracture or traumatic malalignment. Pablo Morales CONCRETE BOOM OPERATOR CT ORDERABLES Final R esult * BLOOD CULTURE (11/13/2024 11:04 AM CDT) Only the most recent of5 resultswithin the time period is included. [facility] BLOOD CULTURE No growth 11/18/2024 12:35 PM CDT [facility] Blood (Peripheral) Venipuncture / Unknown 11/13/2024 11:04 AM CDT 11/13/2024 11:11 AM CDT Narrative [facility] - 11/18/2024 12:35 PM CDT Specimen processed with suboptimal blood volume collected. Austin Robertson MD MICROBIOLOGY - GEN ERAL ORDERABLES Final Result Performing Organization Address [facility] Co de Phone Number [facility] CLIA # [id number] [address] [address] [place], [place] [id number] * KETONES/BETA HYDROXYBUTYRATE (11/13/2024 11:04 AM CDT) [facility] BETA HYDROXYBUTYRATE 0.2 0.0 - 0.3 mmol/L 11/13/2024 12:52 PM CDT [facility] Blood Venipuncture / Unknown 11/13/2024 11:04 AM CDT 11/13/2024 11:12 AM CDT Elizabeth Elizabeth MD CHEMISTRY ORDERABLES Final Re sult Performing Organization Address City/[facility]/ZIP Co de Phone Number [facility] CLIA # [id number] [id number] [place], [place] [address] * INFLUENZA A/B, RSV AND COVID-19 PCR PANEL (11/11/2024 9:55 PM CDT) Only the most recent of3 resultswithin the time period is included. [facility] COVID-19 PCR NOT DETECTED Not Detected 11/12/19 11:06 PM CDT [facility] Influenza A by PCR NOT DETECTED Not Detected 11/11/2024 11:06 PM CDT [facility] Influenza B by PCR NOT DETECTED Not Detected 11/11/2024 11:06 PM CDT [facility] RSV by PCR NOT DETECTED Not Detected 11/11/2024 11:06 PM CDT [facility] Upper Respiratory ENTIRE NASOPHARYNX / Unknown Collection / Unknown 11/11/2024 9:55 PM CDT 11/11/2024 10:10 PM CDT Narrative [facility] [place] - 11/11/2024 11:06 PM CDT This test [...] MICROBIOLOGY - GENERAL ORDERABLES Final Result [facility] CLIA # [id number] [address] [place] [address] * XR FEMUR 2 VW BILAT (11/11/2024 [...] dislocation. Aki Booth DO DIAGNOSTIC IMAGING ORDE [employer] Final Result * XR WRIST 3+ VW [...] and fibula. Aki Booth DO DIAGNOSTIC IMAGING [place] STUART Final Result * XR LUMBAR SPINE 2 OR 3 VW (11/08/2024 8:30 PM CDT) Anatomical Region Laterality Modality Spine Computed Radiogr aphy 11/08/2024 8:30 PM CDT Impressions 11/09/2024 10:52 AM CDT IMPRESSION: Please see below. Exam: XR LUMBAR SPINE 2 OR 3 VW Date/Time of Exam: 11/08/2024 8:30 PM Reason For Exam: Fall. Diagnosis: COPD with exacerbation ([facility]). Comparison: September 13, 2024 FINDINGS: Frontal lateral and lumbosacral projections show mild left convex scoliosis. Slight degenerative anterolisthesis L4-5. Mild to moderate lumbar disc degeneration, greatest distally. Minor ventral spondylosis. Mild to moderate distal facet arthropathy. Stable mild grade L1 superior endplate compression fracture. Narrative Procedure Note Carlos Garcia DO - 11/09/2024 IMPRESSION: Please see below. Exam: XR LUMBAR SPINE 2 OR 3 VW Date/Time of Exam: 11/08/2024 8:30 PM Reason For Exam: Fall. Diagnosis: COPD with exacerbation ([facility]). Comparison: September 13, 2024 FINDINGS: Frontal lateral and lumbosacral projections show mild left convex scoliosis. Slight degenerative anterolisthesis L4-5. Mild to moderate lumbar disc degeneration, greatest distally. Minor ventral spondylosis. Mild to moderate distal facet arthropathy. Stable mild grade L1 superior endplate compression fracture. Ronak Cortes MD DIAGNOSTIC IMAGING ORDERABLES Final Result * Critical Care (11/05/2024 4:16 PM CDT) [...] SURGICA L ORDERABLES Final Result * (ABNORMAL) OSMOLALITY (11/01/2024 9:10 PM CDT) OSMOLALITY 324(H) 275 - 295 mOsm/kg 11/01/2024 10:03 PM CDT [facility] Blood Venipuncture / Unknown 11/01/2024 9:10 PM CDT 11/01/2024 9:30 PM CDT us Li Anderson MD CHEMISTRY ORDERABLES Jana flores Result Performing Organization Address City/State/[facility] Co de Phone Number [facility] CLIA # [id number] [address] [facility] [place] [address] * US CAROTID DOPPLER (11/01/2024 8:04 AM CDT) Anatomical Region Laterality Modality Neck Ultrasound 11/01/2024 7:32 AM CDT Narrative 11/01/2024 9:00 AM CDT [facility] Cardiovascular Services Noninvasive Vascular Laboratory [address] [place] [address] Noninvasive Vascular Lab Cerebrovascular Exam Carotid Duplex Patient: Le Diaz Study ID: US CAROTID DOPPL Gender: F : 1965 Age: 59 Room: [facility] Height: 162.6cm Weight: 97kg BSA: 2.14m^2 Pt status: Inpatient Study Date: 11/01/2024 Study Time: 07:32:50 AM BSA: 2.14m^2 Ordering: Danyell Dewitt Interpreting:Lm Zimmerman Certified Cytotechnologist: Jerson Nuñez Indications: Syncope. Summary Mild plaque [...] ICA/prox CCA!0.68 !0.53 ! + +-----+-----+ [facility] Vascular Lab is accredited with the Intersocietal Commission for the Accreditation of Vascular Laboratories (ICAVL) Prepared and Electronically Authenticated Lm Zimmerman Confirmed 11/01/2024 09:00 Procedure Note Lm Zimmerman MD - 11/01/2024 [facility] Cardiovascular Services Noninvasive Vascular Laboratory [address] [place] [address] Noninvasive Vascular Lab Cerebrovascular Exam Carotid Duplex Patient: Le Diaz Study ID: US CAROTID DOPPL Gender: F : 1965 Age: 59 Room: [facility] Height: 162.6cm Weight: 97kg BSA: 2.14m^2 Pt status: Inpatient Study Date: 11/01/2024 Study Time: 07:32:50 AM BSA: 2.14m^2 Ordering: Danyell Dewitt Interpreting:Lm Zimmerman Certified Cytotechnologist: Jerson Nuñez Indications: Syncope. Summary Mild plaque [...] ICA/prox CCA!0.68 !0.53 ! + +-----+-----+ [facility] Lab is accredited with the[facility] Commission for the Accreditation of Vascular Laboratories (ICAVL) Prepared and Electronically Authenticated Lm Zimmerman Confirmed 11/01/2024 09:00 Danyell Dewitt MD US ORDERABLES Final Resul t * (ABNORMAL) HEMOGLOBIN A1C (10/31/2024 3:08 AM CDT) HEMOGLOBIN A1C 10.4(H) <=5.6 % 11/02/2024 10:13 AM CDT [facility] EST. AVG GLUCOSE, A1C 252 mg/dL 11/02/2024 10:13 AM CDT [facility] Blood Venipuncture / Unknown 10/31/2024 3:08 AM CDT 10/31/2024 3:13 AM CDT Narrative [facility] - 11/02/2024 10:13 AM CDT HGB A1C INTERPRETATION NORMAL: <5.7% PRE-DIABETES: 5.7 - 6.4% DIABETES: 6.5% OR GREATER Danyell Dewitt MD CHEMISTRY ORDERABLES Final Result [facility] CLIA # [id number] [address] [place] [address] * LIPASE (10/31/2024 1:11 AM CDT) LIPASE 21 13 - 60 U/L 10/31/2024 6:26 AM CDT [facility] Blood Venipuncture / Unknown 10/31/2024 1:11 AM CDT 10/31/2024 1:22 AM CDT us Aggie Rivas DO CHEMISTRY ORDERABLES Final Resul t [facility] # [id number] [address] [address] [place] [address] * US ABDOMEN LIMITED (10/28/2024 10:54 AM [...] sonographic Heath's sign was documented by the juice packaging machines setter. Common bile duct: No dilation of the [...] sonographic Heath's sign was documented by the juice packaging machines setter. Common bile duct: No dilation of the [...] - 8.3 g/dL 10/28/2024 10:03 AM CDT [facility] ALBUMIN 4.0 3.5 - 5.2 g/dL 10/28/2024 10:03 AM CDT [facility] BILIRUBIN TOTAL 0.3 0.0 - 1.0 mg/dL 10/28/2024 10:03 AM CDT [facility] BILIRUBIN DIRECT 0.1 0.0 - 0.3 mg/dL 10/28/2024 10:03 AM CDT [facility] Comment:Hemolyzed: Result ma y be falsely decreased. ALKALINE PHOSPHATASE 131(H) 35 - 104 U/L 10/28/2024 10:03 AM CDT [facility] AST 15 10 - 35 U/L 10/28/2024 10:03 AM CDT [facility] ALT 24 <=35 U/L 10/28/2024 10:03 AM CDT [facility] Blood Venipuncture / Unknown 10/28/2024 5:37 AM CDT 10/28/2024 5:46 AM CDT Nani Borges MD CHEMISTRY ORDERABLES Fin al Result [facility] CLIA # [id number] [address] [place] [address] * CT ABDOMEN PELVIS W CONTRAST (10/20/2024 9:05 PM CDT) Anatomical Region Laterality Modality Abdomen Computed Tomogra phy 10/20/2024 9:06 PM CDT Impressions 10/20/2024 9:24 PM CDT IMPRESSION: No acute abdominopelvic process. Fatty changes of the liver. Hysterectomy. Left basilar airspace consolidation similar to prior. Otherwise chronic changes. MACRO: None Narrative 10/20/2024 9:24 PM CDT EXAMINATION: CT ABDOMEN PELVIS W CONTRAST CLINICAL HISTORY: ASSOCIATED DIAGNOSIS: upper ab pain ORDERING PROVIDER: KAY SAUNDERS NOTE: COMPARISON: August 29, 2024. TECHNIQUE: Contiguous [...] DIAGNOSIS: upper ab pain ORDERING PROVIDER: KAY SAUNDERS NOTE: COMPARISON: August 29, 2024. TECHNIQUE: Contiguous [...] PCR PANEL (10/11/2024 12:03 PM CDT) Pathologist [facility] GI Pathogen PCR panel NOT DETECTED No nucleic acids detected. 10/11/2024 1:26 PM CDT [facility] Stool STOOL SPECIMEN / Unknown Collection / Unknown 10/11/2024 12:03 PM CDT 10/11/2024 12:05 PM CDT Narrative [facility] - 10/11/2024 1:26 PM CDT The [...] GENERAL ORDERABLES Final Result Performing Organization Address City/[facility]/ZIP Co de Phone Number [facility] CLIA # [id number] [address] [address] * OCCULT BLOOD GUAIAC DIAGNOSTIC (10/11/2024 12:02 PM CDT) OCCULT BLOOD, STOOL Negative Negative 10/11/2024 12:11 PM CDT [facility] Stool STOOL SPECIMEN / Unknown Collection / Unknown 10/11/2024 12:02 PM CDT 10/11/2024 12:03 PM CDT Kapil Deluna DO BODY FLUIDS AND STOOLS Final Result [facility] CLIA # [id number] [address] [address] * XR ABDOMEN 1 VW (10/10/2024 8:40 [...] DIAGNOSTIC IMAGING ORDE NARCISO Final Result * PET HEART PERF R&S W CT [...] 28(H) <=10 ng/L 10/02/2024 9:06 AM CDT [facility] Blood Venipuncture / Unknown 10/02/2024 8:18 AM CDT 10/02/2024 8:30 AM CDT Narrative [facility] - 10/02/2024 9:06 AM CDT Troponin elevated. us Dane Hopkins MD CHEMISTRY ORDERABLES Final Result [facility] CLIA # [id number] [address] [address] [place] [address] * XR THORACOLUMBAR SPINE 2 VW (09/13/2024 [...] colonizing bacteria 09/14/2024 11:22 AM CDT [facility] Urine URINE SPECIMEN OBTAINED BY CLEAN CATCH PROCEDURE / Unknown Collection / Unknown 09/13/2024 1:12 PM CDT 09/13/2024 1:20 PM CDT Peña Mata MD MICROBIOLOGY - GENERAL O RDERABLES Final Result Performing Organization Address City/[facility]/ZIP Co de Phone Number [facility] CLIA # [id number] [address] [place] [address] * EXTRA TUBE (BLUE) (09/12/2024 9:32 PM CDT) Blood Venipuncture / Unknown 09/12/2024 9:32 PM CDT 09/12/2024 10:59 PM CDT External Provider [facility] HEMATOLOGY ORDERABLES Jana l Result Performing Organization Address City/[facility]/ZIP Co de Phone Number [facility] CLIA # [id number] [address] [place] [address] * Critical Care (09/12/2024 9:09 PM CDT) [...] obtaining history from patient or surrogate Robbie Virgen Yovana DO PROCEDURE/MINOR SURGIC AL ORDERABLES Final Result * (ABNORMAL) LIPID PANEL (02/19/2024 5:29 AM 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) [facility] CHOLESTEROL 188 <200 mg/dL 02/19/2024 10:[address] [facility] TRIGLYCERIDE 104 <150 mg/dL 02/19/2024 10:25 AM [facility] HDL 36(L) 40 - 59 mg/dL 02/19/2024 10:25 AM [facility] LDL CALCULATED 131(H) <100 mg/dL 02/19/2024 10:25 AM [facility] NON-HDL CHOLESTEROL 152(H) <130 mg/dL 02/19/2024 10:25 AM [facility] Blood Venipuncture / Unknown 02/19/2024 5:29 AM 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 02/19/2024 5:34 AM [facility] LABORATORY [facility] - 02/19/2024 10:25 AM [facility] TOTAL CHOLESTEROL mg/dL Desirable <200 [...] ORDERABLES Final R esult Performing Organization Address [facility]/ZIP Co de Phone Number [facility] # [id number] [address] [address] [place] [address] * MICROALBUMIN/CREATININE RATIO, RANDOM UR (02/26/2023 3:01 PM 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) Pathologist [facility] Creatinine, Urine 199 20 - 275 mg/dL [facility] MICROALBUMIN, URINE 1.9 See Note: mg/dL [facility] Comment: Reference Range: Reference Range Not established MICROALBUMIN/CREAT RATIO, UR 10 <30 mcg/mg creat [facility] Comment: The ADA defines abnormalities in [...] category. FASTING:UNKNOWN FASTING: UNKNOWN Test Performed at: [facility] [id number] [place] [phone] Emily Dumont MD Urine URINE SPECIMEN OBTAINED BY CLEAN CATCH PROCEDURE / Unknown 02/26/2023 3:01 PM 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 02/26/2023 3:02 PM 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 Ryann Burk MD URINE ORDERABLES Final Result Performing Organization Address [facility]/ZIP Co de Phone Number [facility] [phone] [facility] [address] [place] [address] * CERV/VAG CYTO SCREEN PAP W/HPV (01/06/2023 12:00 AM CDT) Pathologist [facility] CLINICAL INFORMATION [facility] Comment:None given LAST MENSTRUAL PERIOD [facility] Comment:NONE GIVEN PREV PAP: [facility] Comment:NONE GIVEN PREV BX: [facility] Comment:NONE GIVEN SOURCE [facility] Comment:ENDOCERVIX ADEQUACY: [facility] Comment: Satisfactory for evaluation. Endocervical/transformation zone component present. Age and/or menstrual status not provided PAP INTERP [facility] Comment: Cytology Results: Negative for intraepithelial lesion or malignancy. COMMENT (PAP TEST) [facility] Comment: This Pap test has been evaluated with computer assisted technology. SOLAR SYSTEMS DESIGNER: [facility] Comment: BKA, CT(ASCP) CT screening location: [place] [address] [place] [address] EXPLANATORY NOTE [facility] Comment: EXPLANATORY NOTE: The Pap is a [...] information. HPV E6/E7 Not Detected Not Detected [facility] Comment: Methodology: Homicide Investigator-Mediated Amplification This assay detects E6/E7 viral messenger RNA (mRNA) from 14 high-risk HPV types (16,18,31,33,35,39,45,51,52,56,58,59,66,68). Cervical sources are required for HPV testing. If a vaginal source from a patient who has had a total hysterectomy with removal of cervix was submitted, please contact the testing laboratory for alternative testing options. For additional information, please refer to http://education.[employer]/faq/NJD028d2 (This link if provided for information/ educational purposes only.) Test Performed at: [facility] [address] [phone] Emily Dumont MD Genital SWAB OF ENDOCERVIX / Unknown 01/06/2023 01/08/2023 10:07 AM CDT Ryann Burk MD PATHOLOGY/CYTOLOGY ORDERABLES Fi nal Result [facility] [phone] [facility] [address] [place] [address] * MAMMO DIAGNOSTIC UNI RIGHT W OR [...] Date Heart Failure Problem 05/12/2024 [place] * Guarantor: LE DIAZ Account Type Relation to Patient Date of Phone Billing Address Personal/Family [address] [place] [address] RX [employer]ING Medicaid [place] M[place] Advance Directives For more information, please contact: [phone] Documents on File Type Date Recorded Patient Health And Wellness Director Expl anation Advance Directive Living Will 12/13/2024 3:14 PM Advance Directive Living Will Advance Directive POA 12/13/2024 3:14 PM A dvance Directive POA Advance Directive Living Will 12/13/2024 12:49 PM Advance Directive Living Will Advance Directive Living Will 07/23/2023 11:03 AM Advance Directive Living Will Advance Directive POA 07/23/2023 11:03 AM A dvance Directive POA * Full Code (Latest Code Status on File) Date Activated Date Inactivated Comments 12/09/2024 11:43 PM 12/13/2024 2:15 PM * Full Code Date Activated Date Inactivated Comments 11/28/2024 9:30 PM 12/02/2024 3:37 PM * Full Code Date Activated Date Inactivated Comments 11/21/2024 11:08 PM 11/23/2024 4:09 PM * Full Code Date Activated Date Inactivated Comments 11/13/2024 3:15 PM 11/16/2024 3:49 PM * Full Code Date Activated Date Inactivated Comments 11/08/2024 7:53 AM 11/10/2024 4:09 PM Care Teams Microscopist Relationship Specialty Start Date End Date Delta Wade MD [address] [address] PCP - General Family Practice 03/25/24
--- OUTSIDE RECORDS SUMMARY | 2024-12-13 22:59 | XMS_ITS | Encounter Summary ---
Author Organization [facility] Address [address] Gonzalez: Epic Prelude ADT [place] [address] Care Team Providers Care Contract Associate Manager Name Role Phone Delta Wade MD Primary Care Provider [phone] Encounter Details Date Type Department Care Team (Latest Contact Info) Description 12/09/2024 Travel Social History Tobacco Use Types Packs/Day [...] Never 06/13/2019 How often do you attend [facility] or voodoo services? More than 4 times per year [...] worry about transportation for future doctor visits, burr picker medication, etc.? 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 [address] Gricel Mcgovern PA [address] [place] [address] 01/12/2025 1:40 PM CDT Office Visit [facility] [address] [place] [address] Tresa Stockton, [facility] [address] [place] [address] documented as of this encounter [...] documented as of this encounter Care Teams Contract Associate Manager Relationship Specialty Start Date End Date Delta Wade MD 5 [facility] [address] [place] [address] PCP - General Family Practice 03/25/24 documented as of this encounter
--- OUTSIDE RECORDS SUMMARY | 2024-12-13 22:59 | XMS_ITS | Patient Health Record ---
Author Organization [facility] Address [address] [place] [address] Care Team Providers Care Bale Breaker Operator Name Role Phone ( [facility] ), PHYSICIAN NOT IDENTIFIED Primary Care Provider Unavailable DR. Dominguez Mckay Unavailable [phone] Kyler Martin Unavailable [phone] Allergies Allergen (clinical drug ingredient) Drug/Non Drug [...] Female Encounters Encounter Location Date Provider Diagnosis [facility] [address] [place] [phone] 06/08/2024 Dominguez Mckay [address] [place] [address] [address] [place] [address] 09/28/2024 Dominguez Mckay Plan Of Treatment No Information Insurance Providers Payer Name Payer Address Payer Phone Subscriber Number Group Number Insured Name Patient Relationship to Insured Coverage Start Date Coverage End Date Medicaid Dental [address] [place] [address] [id number] Le Barnhart Self - patient is the insured Medicaid [address] [place] [address] [id number] Le Barnhart Self - patient is the insured Medical (General) History Medical History History ICD Code heart murmer diabetes emphysema cancer chemotherapy high bp radiation treatment
[2024-12-13 23:02] VITALS: PULSE 86; RESP 18; TEMP 36.7; O2SAT 95; BMI 36.3
== END 2024-12-14 00:09 | disposition left against medical advice (07) ==
PROVIDERS: Emergency Provider Family Medicine; PCP Family Medicine
DX: Z01.89 Encounter for other specified special examinations (principal); Z53.21 Procedure and treatment not carried out due to patient leaving prior to being seen by health care provider
CPT/HCPCS: 36416; 82962

== ENCOUNTER 2025-01-07 02:54 | Emergency (ER) | payer MEDICAID, SELFPAY ==
--- OUTSIDE RECORDS SUMMARY | 2020-06-27 10:30 | XMS_ITS | Continuity of Care Document ---
Author Organization [facility] Address [address] [place] [address] Phone Care Team Providers Care Pad Extraction Tender Name Role Phone Unavailable Unavailable Unavailable Allergies, [...] Encounter OFFICE/OUTPA TIENT VISIT, [facility], [address], [place], [place], [address] , [place] tel: [phone] [facility] follow up [...] party ID Authoriza dioni(s) Medicaid - Medical [id number] Social History Type Description Quantity Date Captured [...] her vagina and is being managed at [facility]. Patient has HTN, hip pain, and [...] her vagina and is being managed at [facility]. Patient has HTN, hip pain, and [...]
--- OUTSIDE RECORDS SUMMARY | 2024-02-03 06:00 | XMS_ITS ---
Author Organization [facility] Address [address] [place] [phone] Care Team Providers Care Pharmacologist Name Role Phone ( [facility] ), PHYSICIAN NOT IDENTIFIED Primary Care Provider Unavailable Kyler Martin Unavailable [phone] REASON FOR VISIT wants bottom dentures needs slide - Eugenia if needed Social History Sex Assigned At : Social History Observation Description Sex Assigned At Female Encounters Encounter Location Date Provider Diagnosis [address] [place] [address] Dental Clinic [address] [place] [phone] 02/03/2024 Kyler Martin Plan Of Treatment No Information Progress Notes * Zhang DIAZaDOB:1965 (59 yo F)Acc No.[id number]:02/03/2024 Patient: Le Colindres Provider: Tawanda Martin DMD :1965 A ge:58 Y S ex:Female Date:02/03/2024 Address:[address] [place], [place] [phone] Pcp:PHYSICIAN NOT IDENTIFIED ( [facility] ) Subjective: * Chief Complaints: * w ants bottom dentures needs slide - Eugenia if needed Billing Information: * Procedure Codes: * Electronic signature of Antelmo Martin DMD on 01/07/2025 at 03:02 AM CDT Sign off status: Pending * Provider: Tawanda Martin DMD Date: 04/04/2023 Generated for Mani contreras/Moshe/eTransmitting on: 03:02 AM CDT
--- OUTSIDE RECORDS SUMMARY | 2024-04-27 08:00 | XMS_ITS ---
Author Organization [facility] Address [address] [place] [address] Care Team Providers Care Road Advisor Name Role Phone Delta Wade Primary Care Provider Jose Cruz Harvey Unavailable [phone] Hannah Rai Unavailable [phone] REASON FOR VISIT S/P [facility], Jahaira 04/06/24 Encounters Encounter Location Date Provider Diagnosis [facility] [address] [place] [phone] 04/27/2024 Hannah Rai Non-ST elevated myocardial infarction [...] the inferior lateral wall Progress Notes * GAINFRANCO DIAZDOB: 6 (59 yo F)Acc No.[id number]:04/27/2024 Patient: Jahaira ZORAIDAGIANFRANCO KANG Provider: Tawanda Rai APN :1965 A ge:58 Y S ex:Female Date:04/27/2024 Address:[address] [place], [place] [phone] Pcp:Delta Wade Subjective: * Chief Complaints: * [...] Electronic signature of Eliu Rai APRN on 01/07/2025 at 03:02 AM CDT Sign off status: Pending * Provider: Tawanda Rai APN Date: 0 04/27/2024 Generated for Mani contreras/Moshe/Binta on: 03:02 AM CDT
--- OUTSIDE RECORDS SUMMARY | 2024-05-06 05:30 | XMS_ITS ---
Author Organization [facility] Address [address] [place] [address] Care Team Providers Care Furnace Operator Oil Or Gas Name Role Phone Delta Wade Primary Care Provider Jose Cruz Harvey Unavailable [phone] Acacia Gaines Unavailable [phone] [facility] Encounters Encounter Location Date Provider Diagnosis [facility] [address] [place] [phone] 05/06/2024 Acacia Gaines Plan Of Treatment No [...] mitral regurgitation. Prior cardiac care was in [place]. She was admitted to the hospital with chest discomfort on April 04 and ruled in for non-ST elevation [place]. Patient was evaluated by Dr. Nunez and [...] GIANFRANCO DIAZ JDOB: [birth year] (59 yo F)Acc No.[id number]:05/06/2024 Patient: GIANFRANCO GARCIA Provider: Cameron Gaines NP :1965 A ge:58 Y S ex:Female Date:05/06/2024 Address:[address] [place], [place] [phone] Pcp:Delta Wade Subjective: * Chief Complaints: * [...] mitral regurgitation. Prior cardiac care was in [place]. She was admitted to the hospital with chest discomfort on April 04 and ruled in for non-ST elevation [place]. Patient was evaluated by Dr. Nunez and [...] Codes: * Electronic signature of CRIS Ellis, CORPORATE TUTOR-C on 01/07/2025 at 03:01 AM CDT Sign off status: Pending * Provider: Cameron Gaines NP Date: 0 05/06/2024 Generated for Mani contreras/Moshe/Adrianitting on: 1 03:01 AM CDT
--- OUTSIDE RECORDS SUMMARY | 2024-07-08 05:30 | XMS_ITS ---
Author Organization [facility] Address [address] [place] [address] Care Team Providers Care Biofuels Technology Development Manager Name Role Phone Delta Wade Primary Care Provider Jose Cruz Harvey [phone] Encounters Encounter Location Date Provider Diagnosis [facility] [address] [place] [place] [address] [place] [address] 07/08/2024 Jose Cruz Forde Plan Of Treatment No Information Progress Notes * GIANFRANCO DIAZDOB: [birth year] (59 yo F)Acc No.[id number]:07/08/2024 Patient: Jahaira HANNA GIANFRANCO Page Provider: Abdirahman Forde MD :1965 A ge:58 Y S ex:Female Date:07/08/2024 Address:[address] [place], [place] [phone] Pcp:Delta Wade * Electronic signature of Natasha Forde MD on 01/07/2025 at 03:03 AM CDT Sign off status: Pending * Provider: Abdirahman Forde MD Date: 0 07/08/2024 Generated for Printi ng/Faxing/eTransmitting on: 1 03:03 AM CDT
--- OUTSIDE RECORDS SUMMARY | 2024-07-12 09:00 | XMS_ITS ---
Author Organization [facility] Address [address] [facility] [place] [address] Care Team Providers Care Chemist Steroids Name Role Phone Delta Wade Primary Care Provider Jose Cruz Harvey [phone] REASON FOR VISIT [phone] Encounters Encounter Location Date Provider Diagnosis [facility] [address] [place] [address] [place] [address] 07/12/2024 Jose Cruz Forde Plan Of Treatment No Information Progress Notes * GIANFRANCO DIAZDOB: [birth year] (59 yo F)Acc No.[id number]:07/12/2024 Pulmonary Function Test Patient: Jahaira GIANFRANCO HANNA Provider: Abdirahman Forde MD :1965 A ge:59 Y S ex:Female Date:07/12/2024 Address:[address] [place], [place] [phone] Pcp:Delta Wade Subjective: * Chief Complaints: * 6 [id number] Billing Information: * Procedure Codes: * Electronic signature of Natasha Forde MD on 01/07/2025 at 03:01 AM CDT Sign off status: Pending * Provider: Abdirahman Forde MD Date: 0 07/12/2024 Generated for Mani contreras/Moshe/eTransmitting on: 03:01 AM CDT
--- OUTSIDE RECORDS SUMMARY | 2024-07-12 10:00 | XMS_ITS ---
Author Organization [facility] Address [address] [place] [address] Care Team Providers Care Roaster Operator Name Role Phone Delta Wade Primary Care Provider Jose Cruz Harvey [phone] REASON FOR VISIT [phone] Encounters Encounter Location Date Provider Diagnosis [facility] [address] [place] [address] [place] [address] 07/12/2024 Jose Cruz Forde Plan Of Treatment No Information Progress Notes * GIANFRANCO DIAZDOB: 6 (59 yo F)Acc No.[id number]:07/12/2024 Progress Notes Patient: Jahaira GIANFRANCO HANNA Provider: Abdirahman Forde MD :1965 A ge:59 Y S ex:Female Date:07/12/2024 Address:[address] [place], [place] [phone] Pcp:Delta Wade Subjective: * Chief Complaints: * 6 [id number] Billing Information: * Procedure Codes: Care Plan Details* * Electronic signature of Natasha Forde MD on 01/07/2025 at 03:01 AM CDT Sign off status: Pending * Provider: Abdirahman Forde MD Date: 0 07/12/2024 Generated for Sydnii diane/Moshe/eTransmitting on: 03:01 AM CDT
--- OUTSIDE RECORDS SUMMARY | 2024-07-13 04:30 | XMS_ITS ---
Author Organization [facility] Address [address] [place] [address] Care Team Providers Care Vp Product Management Name Role Phone ( [facility] ), PHYSICIAN NOT IDENTIFIED Primary Care Provider DR. Dominguez Pate Unavailable [phone] REASON FOR VISIT cavity on lower- Social History Sex Assigned At : Social History Observation Description Sex Assigned At Female Encounters Encounter Location Date Provider Diagnosis [address] [place] [address] Dental Clinic [address] [place] [address] 07/13/2024 Dominguez Mckay Plan Of Treatment No Information Progress Notes * Zhang DIAZIvettB:1965 (59 yo F)Acc No.[id number]:07/13/2024 Patient: Le Colindres Provider: Jahaira Mckay DDS :1965 A ge:59 Y S ex:Female Date:07/13/2024 Address:[address] [place], [place] [phone] Pcp:PHYSICIAN NOT IDENTIFIED ( [facility] ) Subjective: * Chief Complaints: * C avity on lower- Billing Information: * Procedure Codes: * Electronic signature of DR. Dominguez Mckay DDS on 01/07/2025 at 03:01 AM CDT Sign off status: Pending * Provider: Jahaira Mckay DDS Date: 0 07/13/2024 Generated for Printi ng/Faxing/eTransmitting on: 1 03:01 AM CDT
--- OUTSIDE RECORDS SUMMARY | 2024-07-19 03:00 | XMS_ITS ---
Author Organization [facility] Address [address] [place] [address] Care Team Providers Care Carburetor Repairer Name Role Phone Delta Wade Primary Care Provider Jose Cruz Harvey [phone] REASON FOR VISIT [phone] Encounters Encounter Location Date Provider Diagnosis [facility] [address] [place] [address] [place] [address] 07/19/2024 Jose Cruz Forde Plan Of Treatment No Information Progress Notes * GIANFRANCO DIAZDOB: 6 (59 yo F)Acc No.[id number]:07/19/2024 Pulmonary Function Test Patient: Jahaira GIANFRANCO HANNA Provider: Abdirahman Forde MD :1965 A ge:59 Y S ex:Female Date:07/19/2024 Address:[address] [place], [place] [phone] Pcp:Delta Wade Subjective: * Chief Complaints: * 6 [id number] Billing Information: * Procedure Codes: * Electronic signature of Natasha Forde MD on 01/07/2025 at 03:02 AM CDT Sign off status: Pending * Provider: Abdirahman Forde MD Date: 0 07/19/2024 Generated for Mani contreras/Moshe/eTransmitting on: 03:02 AM CDT
--- OUTSIDE RECORDS SUMMARY | 2024-07-19 05:10 | XMS_ITS ---
Author Organization [facility] Address [address] [place] [address] Care Team Providers Care Adjunct Psychology Instructor Name Role Phone Delta Wade Primary Care Provider Jose Cruz Harvey [phone] REASON FOR VISIT abnormal chest CT Medications [...] Active Encounters Encounter Location Date Provider Diagnosis [facility] [address] [place] [address] [place] [address] 07/19/2024 Jose Cruz Forde Solitary pulmonary nodule [...] remission (ICD-10 - F17.211) Patient smoked a oryo-tch-aox for 45 years. She has been abstinent [...] cigaret taiwo, in remission Patient smoked a rjyc-tms-reh for 45 yea rs. She has been [...] ION 07/08/24 but was hospitalized twice at [facility] and unable to complete her pre-surgical [...] DIAZ, GIANFRANCO PageDOB: 6 (59 yo F)Acc No.[id number]:07/19/2024 Progress Notes Patient: GIANFRANCO GARCIA Provider: Abdirahman Forde MD :1965 A ge:59 Y S ex:Female Date:07/19/2024 Address:[address] [place], [place] [phone] Pcp:Delta Wade Subjective: * Chief Complaints: * [...] ION 07/08/24 but was hospitalized twice at [facility] and unable to complete her pre-surgical testing. ION rescheduled for 07/22/24 -ION CT. * ROS: Juliette cain of systems of [facility] has been reviewed and scanned in [...] 1 TABLET BY MOUTH EVERY DAY Oral Wfc-EyswrzXOSXBqwlaqy-Takvgyliulpme 5-325 MG Tablet TAKE 1 TABLET BY [...] cigarettes, in remission Notes: Patient smoked a oivp-hgn-vxf for 45 years. She has been abstinent [...] 07/19/2024 Generated for Mani contreras/Moshe/Adrianitting on: 1 03:01 AM CDT
--- OUTSIDE RECORDS SUMMARY | 2024-07-22 05:00 | XMS_ITS ---
Author Organization [facility] Address [address] [place] [address] Care Team Providers Care Limousine And Hearse Upholsterer Name Role Phone Delta Wade Primary Care Provider Jose Cruz Harvey [phone] Encounters Encounter Location Date Provider Diagnosis [facility] [address] [place] [address] [place] [address] 07/22/2024 Jose Cruz Forde Plan Of Treatment No Information Progress Notes * GIANFRANCO DIAZDOB: 6 (59 yo F)Acc No.[id number]:07/22/2024 Patient: Jahaira HANNA GIANFRANCO Page Provider: Abdirahman Forde MD :1965 A ge:59 Y S ex:Female Date:07/22/2024 Address:[address] [place], [place] [phone] Pcp:Delta Wade * Electronic signature of Natasha Forde MD on 01/07/2025 at 03:03 AM CDT Sign off status: Pending * Provider: Abdirahman Forde MD Date: 0 07/22/2024 Generated for Printi ng/Faxing/eTransmitting on: 1 03:03 AM CDT
--- OUTSIDE RECORDS SUMMARY | 2024-08-23 05:00 | XMS_ITS ---
Author Organization [facility] Address [address] [place] [phone] Care Team Providers Care Tablet Machine Operator Name Role Phone ( [facility] ), PHYSICIAN NOT IDENTIFIED Primary Care Provider DR. Dominguez Pate Unavailable [phone] REASON FOR VISIT TA - Filling Social History Sex Assigned At : Social History Observation Description Sex Assigned At Female Encounters Encounter Location Date Provider Diagnosis [address] [place] [address] [facility] Clinic [address] [place] [phone] 08/23/2024 Dominguez Mckay Plan Of Treatment No Information Progress Notes * DIAZ, ZhangaDOB:1965 (59 yo F)Acc No.[id number]:08/23/2024 Patient: Le Colindres Provider: Jahaira Mckay DDS :1965 A ge:59 Y S ex:Female Date:08/23/2024 Address:[address] [place], [place] [phone] Pcp:PHYSICIAN NOT IDENTIFIED ( [facility] ) Subjective: * Chief Complaints: * T A - Filling Billing Information: * Procedure Codes: * Electronic signature of DR. Dominguez Mckay DDS on 01/07/2025 at 03:02 AM CDT Sign off status: Pending * Provider: Jahaira Mckay DDS Date: 0 08/23/2024 Generated for Printi ng/Faxing/eTransmitting on: 1 03:02 AM CDT
--- OUTSIDE RECORDS SUMMARY | 2024-09-07 03:30 | XMS_ITS ---
Author Organization [facility] Address [address] [place] [phone] Care Team Providers Care Multi Site Leasing Consultant Name Role Phone ( [facility] ), PHYSICIAN NOT IDENTIFIED Primary Care Provider DR. Dominguez Pate Unavailable [phone] REASON FOR VISIT TA causing alot of [place]-pt wants filling done- told pt it was a limited not restore appt Social History Sex Assigned At : Social History Observation Description Sex Assigned At Female Encounters Encounter Location Date Provider Diagnosis [facility] [address] [place] [phone] 09/07/2024 Dominguez Mckay Plan Of Treatment No Information Progress Notes * Zhang DIAZIvettB:1965 (59 yo F)Acc No.[id number]:09/07/2024 Patient: Le Colindres Provider: Jahaira Mckay DDS :1965 A ge:59 Y S ex:Female Date:09/07/2024 Address:[address] [place], [place] [id number] Pcp:PHYSICIAN NOT IDENTIFIED ( [facility] ) Subjective: * Chief Complaints: * T A causing alot of [place]-pt wants filling done- told pt it was a limited not restore appt Billing Information: * Procedure Codes: * Electronic signature of DR. Dominguez Mckay DDS on 01/07/2025 at 03:00 AM CDT Sign off status: Pending * Provider: Jahaira Mckay DDS Date: 0 09/07/2024 Generated for Mani contreras/Moshe/Binta on: 1 03:00 AM CDT
--- OUTSIDE RECORDS SUMMARY | 2025-01-03 18:55 | XMS_ITS | Encounter Summary ---
Author Organization [facility] Address [address] [place] [address] Care Team Providers Care Ob/Gyn Nurse Name Role Phone Delta Wade MD Primary Care Provider [phone] Reason for Visit * Reason Comments Shortness of Breath Respiratory distress * Auth/Cert (Routine) Specialty Diagnoses / Procedures Referred By Contac t Referred To Contact Emergency Medicine [facility] Emergency Department [address] [place] [address] Phone: tel: fax: Referral ID Status Reason Start Date Expiration Date Visits Re quested Visits Authorized [id number] 1 1 Encounter Details Date Type Department Care Team (Late st Contact Info) Description 01/03/2025 6:55 PM CDT - 01/03/2025 10:03 PM CDT Emergency [facility] Emergency Department [address] [place] [id number] Quirino Cates DO [address] [place] [address] COPD with exacerbation (CMS/HCC) (Primary Dx) Discharge [...] you can t pay for food? No 01/04/2025 Transportation Needs Answer Date Record ed Have you gone without health care because you didn t have a way to get there? Or worry about transportation for future doctor visits, spanish moss picker medication, etc.? No 2024 Housing Stability Answer Date Recorded Do you worry you won t have a steady place to sleep or struggle to pay rent or mortgage? No 01/04/2025 Utility Needs Answer Date Recorded Do you have difficulty payin g for utility costs (electric, water or gas bills)? No 01/04/2025 Medication Needs Answer Date Recorded Have you skipped taking medi cation due to cost or worry you can t afford new medications? No 01/04/2025 Feeling Safe Answer Date Recorded Are you in a relationship wi th someone who hurts you emotionally and/or physically? 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 Gender Identity Not on file Sexual Orientation Not on file documented as of this encounter Last Filed Vital Signs Vital Sign Reading Time Taken Comments Blood Pressure 126/89 01/03/2025 9:45 PM CDT Pulse 97 01/03/2025 9:45 PM CDT Temperature 36.7 C (98 F) 01/03/2025 9:30 PM CDT Respiratory Rate 25 01/03/2025 7:55 PM CDT Oxygen Saturation 95% 01/03/2025 9:45 PM CDT Inhaled Oxygen Concentration - - Weight - - Height - - Body Mass Index - - documented in this encounter Discharge Instructions * Discharge Instructions* Quirino Cates DO - 01/03/2025 9:50 PM CDT Continue to take prescribed medications as directed. Make sure to stay well-hydrated with noncaffeinated clear fluids. Return to the emergency department at any time your symptoms return, worsen, or change in anyway that is concerning to you. documented in this encounter Medications at Time of Discharge tiotropium-olodat Lisa (STIOLTO RESPIMAT) 2.5-2.5 mcg/actuation metered inhaler Take 2 Puffs by inhalation daily. 4 Gram 11 5 ipratropium-albut Lisa (DUONEB) 0.5 mg-3 mg(2.5 mg base)/3 mL Solution for Nebulization Take 3 mL by inhalation every 4 hours as needed for Shortness of Breath. 300 mL 1 5 albuterol sulfate HFA 90 mcg/actuation aerosol inhaler Take 2 Puffs by inhalation every 6 hours as needed for Shortness of Breath. 8.5 Gram 5 5 warfarin (COUMADIN) 10 mg tablet Take 10 mg by mouth. She does not remember instructions about warfarin budesonide 160 mcg-glycopyr 9 mcg-formot 4.8 mcg/actuation HFA inhaler Take 2 Puffs by inhalation 2 times daily. 60 Each 1 5 02/18/20 25 levalbuterol (XOPENEX) 1.25 mg/3 mL Solution for Nebulization Take 3 mL (1.25 mg) by inhalation every 6 hours as needed for Shortness of Breath or Wheezing. 300 mL 3 5 furosemide (LASIX) 80 mg tablet Take 1 Tablet (80 mg) by mouth 2 times daily. 60 Tablet 3 5 lidocaine (LIDODERM) 5 % Adhesive Patch, Medicated Apply 1 Patch to affected area every 24 hours. 30 Patch 5 01/19/20 25 metoprolol succinate (TOPROL XL) 25 mg Extended Release 24 hour tablet Take 1 Tablet (25 mg) by mouth daily. 30 Tablet 3 5 sacubitriL-valsar sahni (ENTRESTO) 24-26 mg Tablet Take 1 Tablet by mouth 2 times daily. 60 Tablet 3 5 meclizine (ANTIVERT) 12.5 mg tablet Take 1 Tablet (12.5 mg) by mouth 3 times daily. 15 Tablet 5 miconazole (SEAN,MICOTIN,REM MIKAELA AF) 2 % Cream Apply to affected area 2 times daily. 15 Gram 5 triamcinolone acetonide (KENALOG) 0.1 % Ointment Apply to affected area 2 times daily. 15 Gram 5 insulin glargine-yfgn 100 unit/mL pen syringe Inject 45 Units by subcutaneous injection 2 times daily. 15 mL 5 sertraline (ZOLOFT) 50 mg tablet Take 50 mg by mouth daily. rOPINIRole (REQUIP) 0.5 mg tablet Take 0.5 mg by mouth daily at bedtime. amitriptyline (ELAVIL) 25 mg tablet Take 25 mg by mouth daily. zinc OXIDE-cod liver oil (DESITIN) 40 % Paste Apply to affected area see administration instructions. 57 Gram 5 acetaminophen (TYLENOL) 325 mg tablet Take 2 Tablets (650 mg) by mouth every 6 hours as needed for Pain, Mild / Temperature (.). 5 HYDROcodone-aceta minophen (NORCO) 7.5-325 mg Tablet Take 1 Tablet by mouth every 8 hours as needed for Pain, Moderate or Pain, Severe. empagliflozin (JARDIANCE) 10 mg tablet Take 1 Tablet (10 mg) by mouth daily in the morning. 30 Tablet 5 Nebulizer & Compressor For Neb Device every 4 hours as needed for Other (See Comment) (shortness of breath). 1 Each 5 insulin lispro (HumaLOG,ADMELOG) 100 unit/mL pen syringe Inject 14 Units by subcutaneous injection 3 times daily with meals. 5 Ventolin HFA 90 mcg/actuation inhaler Take 2 Puffs by inhalation every 6 hours as needed. isosorbide mononitrate (IMDUR) 30 mg Extended Release 24 hour tabletIndications :Chest pain, unspecified type,Congestive heart failure, unspecified HF chronicity, unspecified heart failure type TAKE 1 TABLET BY MOUTH EVERY DAY [...] Chewable Take 81 mg by mouth daily. fluorouraciL (EFUDEX) 5 % Cream 4 portable oxygenIndications :Chronic obstructive pulmonary disease, unspecified COPD type (CMS/HCC),Oxygen dependent Face to Face completed within 30 days: yes Length of Need: 99 months By: Nasal Cannula Continuously at 3 L/min. 1 Each 4 naloxone (NARCAN) 4 mg/spray [place], Non-Aerosol EMERGENCY USE ONLY: Administer 1 spray (4 mg) in one nostril one time. May repeat in alternating nostrils every 2-3 min until responsive or EMS arrives. 2 Each 3 3 blood sugar diagnostic StripIndications: Type 2 diabetes mellitus without complication, without long-term current use of insulin Use to test blood glucose up to QID PRN symptoms. 100 Each 11 3 OneTouch Delica Plus Lancet 30 gauge USE TO test fasting blood glucose DAILY 3 Blood-Glucose Meter KitIndications:Ty pe 2 diabetes mellitus without complication, without long-term current use of insulin Use to test blood glucose up to TID PRN symptoms. 1 Each 3 cefpodoxime (VANTIN) 200 mg Tablet Take 1 Tablet (200 mg) by mouth every 12 hours for 5 days. 10 Tablet 5 01/04/20 25 benzonatate (TESSALON) 100 mg capsule Take 1 Capsule (100 mg) by mouth every 4 hours as needed for Cough. 60 Capsule 1 5 01/07/20 25 oxygen home delivery Home Oxygen Concentrator yes at 3 L/M Rest, 3 L/M Activity, 3 L/M Sleep, Delivery Device: Nasal Cannula Portability: yes, 3 L/M Rest, L/M Activity, May provide device best for patient needs(E system,home fill, conserving device) Length of Need: 99 months 1 Each 5 01/07/20 25 documented as of this encounter ED Notes * Kyle Nielsen RN - 01/03/2025 9:44 PM CDT Rounded on pt. Medication administered per MAR orders. Pt verbalizes no other needs at this time. Spontaneous equal and unlabored respirations. No acute signs of life-threatening distress. * Kyle Nielsen RN - 01/03/2025 8:55 PM CDT Rounded on pt. Pt resting in bed supine, conversing with family members. Family members at bedside.Pt verbalizes no needs at this time. Spontaneous equal and unlabored respirations. No acute signs of life-threatening distress. * Kyle Nielsen RN - 01/03/2025 7:55 PM CDT Rounded on pt. Medications administered per MAR orders. Pt resting in supine position in bed. Family members at bedside. Spontaneous equal and unlabored respirations. No acute signs of life-threatening distress. * Filomena Corrigan RN - 01/03/2025 7:25 PM CDT Pt c/o COPD flare starting today. Has been using treatments at home without relief. Reports nonproductive cough. O2 dependent at 3-4LPM. Pt denies fevers. Pt is noted to have labored breathing at rest. Pt reports abdominal pain with eating lately as well as back pain. Denies know sick contacts * Quirino Cates DO - 01/03/2025 6:51 PM CDT 01/03/25 7:30 PM HISTORY OF PRESENT ILLNESS History of Present Illness This is a 59-year-old female with a history of COPD presenting with shortness of breath. She arrives here by POV. The patient reports an exacerbation of her COPD symptoms over the past two to three days, includingincreased coughing without expectoration. She has been utilizing home breathing treatments, which have not provided relief. She is currently on a steroid regimen and uses supplemental oxygen at a rate of 3 to 4 liters per minute. She also mentions feeling fatigued. She has a history of COVID-19 infection. The patient does not smoke, and there are no smokers in her household. She reports no fevers. Additionally, the patient experiences gastrointestinal discomfort after eating and reports severe back pain. SOCIAL HISTORY She does not smoke and there are no smokers in her household. PAST MEDICAL HISTORY REVIEWED MEDICAL: Patient has a past medical history of Anxiety, Arthritis, Arthropathy, unspecified, site unspecified, Atrial flutter ([facility]), Bipolar affective disorder ([facility]), Breast cancer ([facility]) (2001), Breast mass (08/22/2010), Cervical neck pain with evidence of disc disease, Chronic hepatic failure, Con genital absence of uterus, Congenital absence of vagina, Congenital anomaly, Congestive heart failure, Coronary artery disease, Deep vein thrombosis (DVT) ([facility]) (2023), Depression (08/22/2010), Diabetes mellitus (2023), Difficult intravenous access, Dyspnea (08/15/2024), Dyspnea on exertion, Emphysema of lung, GERD (gastroesophageal reflux disease), H/O heart artery stent, H/O mastectomy, right, 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 SURGICAL: Patient has a [...] (1984); pr correction hammertoe (Left, 07/20/2024); splenectomy; insert midline iv (10/31/2024); and insert midline iv (12/10/2024). ALLERGIES Ketorolac tromethamine, Prochlorperazine, Propoxyphene, Tramadol, Codeine, and Propoxyphene n-acetaminophen PHYSICAL EXAM INITIAL VS BP: (!) 140/90 (01/03/251914), Heart Rate: (!) 122 bpm (01/03/251853), Resp: (!) 35 (01/03/251853), Pulse: 94 (01/03/251914), Temp: 98 ??F (36.7 ??C) (01/03/252129), Temp src: Oral (01/03/252129), SpO2: 94 % (01/03/251853), Height: (not recorded), Weight: (not recorded), BMI (Calculated): (not recorded) No LMP recorded. 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 Blood pressure 110/75, pulse 100, temperature 98 ??F (36.7 ??C), temperature source Oral, resp. rate 25, SpO2 95%, not currently . Physical Exam Vitals and nursing note reviewed. Constitutional: Appearance: Normal appearance. HENT: Head: Normocephalic and atraumatic. Nose: Nose normal. Mouth/Throat: Mouth: Mucous membranes are moist. Pharynx: Oropharynx is clear. Eyes: Extraocular Movements: Extraocular movements intact. Conjunctiva/sclera: Conjunctivae normal. Pupils: Pupils are equal, round, and reactive to light. Cardiovascular: Rate and Rhythm: Normal rate and regular rhythm. Pulses: Normal pulses. Heart sounds: Normal heart sounds. Pulmonary: Effort: Pulmonary effort is normal. Breath sounds: Decreased breath sounds present. Abdominal: General: Bowel sounds are normal. Palpations: Abdomen is soft. Musculoskeletal: General: Normal range of motion. Cervical back: Normal range of motion and neck supple. Skin: General: Skin is warm and dry. Neurological: General: No focal deficit present. Mental Status: She is alert and oriented to person, place, and time. Psychiatric: Mood and Affect: Mood normal. Behavior: Behavior normal. Physical Exam Constitutional: Patient appears fatigued. Cardiovascular: Tachycardic. Respiratory: Shortness of breath noted. No signs of respiratory distress. Musculoskeletal: Complaints of back pain. DIAGNOSTICS LAB: CBC WITH DIFFERENTIAL - Abnormal Result Value WBC 6.0 NRBCS 2 (*) RBC 3.98 (*) HEMOGLOBIN 11.5 (*) HEMATOCRIT 37.8 MCV 95.0 MCH 28.9 MCHC 30.4 PLATELETS 184 MPV 11.0 RDW 18.5 (*) RDW-STDEV 65.4 (*) NEUTROPHILS 42 LYMPHOCYTES 40 MONOCYTES 15 (*) EOSINOPHILS 1 BASOPHILS 1 IMMATURE GRANULOCYTES 2 NEUTROPHIL ABSOLUTE 2.53 LYMPHOCYTE ABSOLUTE 2.40 MONOCYTE ABSOLUTE 0.87 (*) EOSINOPHIL ABSOLUTE 0.07 BASOPHILS ABSOLUTE 0.04 IMMATURE GRANULOCYTES ABSOLUTE 0.11 (*) SMEAR REVIEWED: NN - No Action Needed COMPREHENSIVE METABOLIC PANEL - Abnormal SODIUM 139 POTASSIUM 4.1 CHLORIDE 102 CO2 25 CALCIUM 9.3 BUN 12 CREATININE 0.48 (*) GLUCOSE 249 (*) TOTAL PROTEIN 6.7 ALBUMIN 3.6 BILIRUBIN TOTAL 0.2 ALKALINE PHOSPHATASE 146 (*) AST 27 ALT 25 GFR >60 ANION GAP 12 LACTIC ACID - Abnormal LACTIC ACID 2.6 (*) BRAIN NATRIURETIC PEPTIDE, BNP OR PROBNP - Abnormal PROBNP, N TERMINAL 376 (*) BLOOD GAS ARTERIAL - Abnormal PH BLOOD POC 7.38 PCO2 POC 48 (*) PO2 POC 39 (*) HCO3 (CALC) POC 28 (*) HEMOGLOBIN POC 11.6 (*) BASE EXCESS POC 3 O2 SATURATION POC 67 (*) SODIUM POC 135 (*) POTASSIUM POC 3.6 HEMATOCRIT POC 35 (*) PH TEMP CORRECT 7.38 PCO2 TEMP CORRECT 48 (*) PO2 TEMP CORRECT 39 (*) SPECIMEN SOURCE, GASES POC Arterial CRITICALTO POC QUIRINO CATES DO NAME POC [id number] RESULTS POC Y TIME POC 2044 CALCIUM IONIZED POC 4.8 TCO2 (CALC) POC 30 (*) [facility] SITE POC No Charge PATIENT'S TEMPERATURE POC 37.0 RESPIRATORY PATHOGEN PCR PANEL - Normal Respiratory Pathogen PCR Panel No respiratory pathogen nucleic acids detected. COVID-19 PCR Not Detected BLOOD CULTURE BLOOD CULTURE BLOOD CULTURE BLOOD CULTURE EXTRA TUBE EXTRA TUBE (BLUE) RADIOLOGY: No orders to display EKG: Twelve-lead ECG obtained 01/03/2025 at 1939 hrs. and interpreted by me shows a sinus tachycardia with ventricular rate of 102 beats a minute. Right axis deviation with no evidence of intraventricular conduction delay adequate R wave progression across precordial leads. Nonspecific ST findings.No ectopic beats. No comparison. Results Results independently interpreted by Quirino Cates DO PROCEDURES Procedures MEDICAL DECISION MAKING AND PLAN OF CARE Assessment & Plan INITIAL ASSESSMENT: 59-year-old female with worsening shortness of breath and increased coughing. Currently on steroids and using home breathing treatments without relief. No fever or sputum production. Additional information obtained from independent historian. Notes from prior patient encounters and/or outside records were not reviewed. DIFFERENTIAL DIAGNOSIS: Differential diagnosis includes, but is not limited to, pulmonary disorderssuch as airway obstruction, pulmonary embolism, noncardiogenic edema, anaphylaxis, acute exacerbation of reactive airway disease; cardiac disorder such as ACS, CHF, Valve disorder, dysrhythmia, tampon keri; as well as DKA, toxic exposure such as asa or CO, and severe sepsis. Other less emergent considerations in today's Emergency Department differential include but are not limited to pneumonia, bronchitis, aspiration, RAD, cor pulmonale, electrolyte problems, metabolic disorders, fever, chest trauma, psychgenic origin.. By virtue of history and physical, some of these diagnoses can be excluded. WORK UP: A complete blood count to evaluate for leukocytosis, leukopenia, anemia, thrombocytopenia,thrombocytosis; a comprensive metabolic profile to evaluate for hyponatremia, hypernatremia, hypokalemia, hyperkalemia, hypocalcemia, hypercalcemia, uremia, renal failure, liver enzyme abnormality; a urinalysis to evaluate for pyuria suggesting infection, specific gravity and ketones to assess hydration, glucosuria. Additionally, blood cultures for bacteremia, and lactic acid to evaluate perfusion were also ordered. A chest x-ray to evaluate for pneumonia, pneumothorax, hemothorax, new onset cardiomegaly to suspect pericardial effusion, intraabdominal free air, and widened mediastinum to suggest dissection. - Viral infection Suspected due to seasonality. Swab test for rhinovirus, RSV, influenza, and COVID-19. Treatment plan: Swab test for rhinovirus, RSV, influenza, and COVID-19. - Pneumonia Considered due to symptoms. Labs and x-ray to rule out. Treatment plan: Labs and x-ray. - COPD exacerbation Worsening symptoms despite home treatments. Administer breathing treatment. Blood gas analysis to assess CO2 levels. Treatment plan: Administer breathing treatment. Blood gas analysis to assess CO2 levels. I discussed the case with provider(s) indicated in ED course. Clinical decision making: The patient presents with an acute or worsening condition that poses a high risk of significant morbidity or mortality without immediate evaluation and intervention. The differential diagnosis include life-threatening conditions as noted above. Extensive data was reviewed including prior records, lab and imaging results, and possible discussions with consultants. The evaluation required integration of multiple data sources, serial assessments, and consideration of advanced diagnostics. Due to the potential severity, immediate assessment and/or interventions were initiated, and the patient wasclosely monitored for clinical deterioration. The complexity of medical decision making was high. Patient remained stable throughout stay here in the emergency department. Workup above was performed. Patient was frequently reevaluated and did not have any worsening in their condition. Once results were back, I discussed these results with the patient. I have not been able to identify any emergent condition that is life threatening or that would require inpatient hospitalization. The patient will follow-up with their primary care physician regarding of the visitation to the emergency department today. Return precautions discussed and they voiced understanding. DISPOSITION: I considered admission vs discharge. Through shared decision-making with the patient, the decision was made to admit. Follow-up: next scheduled visit. ED Course as of 01/03/252149e Jan 03, 20252142 LACTIC ACID(!): 2.6 Likely secondary to breathing treatments [DG] ED Course User Index [DG] Quirino Cates DO Medical Decision Making Amount and/or Complexity of Data Reviewed Labs: ordered. Decision-making details documented in ED Course. Radiology: ordered. ECG/medicine tests: ordered. Risk Prescription drug management. Clinical Scoring & Consults Medications Administered During the ED Stay from 01/03/2025 1851 to 01/03/20252149 Date/Time Order Dose Route Action 01/03/2025 191 CDT IPRATROPIUM 0.5 MG-ALBUTEROL 3 MG (2.5 MG BASE)/3 ML NEBULIZATION SOLN (CABINETOVERRIDE) 3 mL Given 01/03/20252018 CDT sodium chloride 0.9 % bolus solution 1,000 mL 0 mL IV Stopped 01/03/20251948 CDT sodium chloride 0.9 % bolus solution 1,000 mL 1,000 mL IV New Bag 01/03/20251944 CDT ipratropium-albuteroL (DUONEB) 0.5 mg-3 mg(2.5 mg base)/3 mL inhalation solution 3 mL 3 mL Inhalation Not Given 01/03/20251948 CDT methylPREDNISolone sodium succinate (SOLU-Medrol) 125 mg in sterile water 2 mL injection 125 mg IV Given 01/03/20252136 CDT HYDROmorphone (PF) (DILAUDID) injection 0.3 mg 0.3 mg IV Given 01/03/20251948 CDT HYDROmorphone (PF) (DILAUDID) injection 0.3 mg 0.3 mg IV Given . New Prescriptions for this Encounter LAST VS BP: 110/75 (01/03/252099), Heart Rate: (!) 103 bpm (01/03/251954), Resp: 25 (01/03/251954), Pulse: 100 (01/03/252099), Temp: 98 ??F (36.7 ??C) (01/03/252129), Temp src: Oral (01/03/252129), SpO2: 95 % (01/03/252099) CLINICAL IMPRESSION Diagnosis Diagnosis Comment Added By Time Added COPD with exacerbation ([facility]) [J44.1] Quirino Cates DO 01/03/2025 9:50 PM DISPOSITION, EDUCATION AND MEDICATION RECONCILIATION Medications reconciled. See after visit summary for patient education on discharged patients. ED Disposition ED Disposition Discharge Condition Stable User Quirino Cates DO Date/Time ThuJan 03, 2025 9:50 PM Comment -- Diagnosis Diagnosis Comment Added By Time Added COPD with exacerbation ([facility]) [J44.1] Quirino Cates DO 01/03/2025 9:50 PM documented in this encounter Plan of Treatment Upcoming Encounters Date Type Department Care Team (Latest Contact Info) Description 01/12/2025 1:40 PM CDT Office Visit [facility] [address] [facility] [address] [place] [phone] Tresa Stockton, [facility] [address] [facility] [address] [place] [phone] 01/25/2025 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 Encounter [facility] [address] [place] [phone] Kumar Ochoa MD [address] [address] Combined forms of age-related cataract of right eye 01/25/2025 1:00 PM [employer]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 - 01/25/2025 2:13 PM [employer]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 [facility] [place] [id number] [place] [phone] Kumar Ochoa MD [address] [facility] [address] [place] [phone] CATARACT EXTRACTION IOL INSERTION FEMTO LASER ASSISTED LEVEL 1 01/26/2025 8:30 AM [employer]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 Office Visit [facility] [place] [address] [phone] Eduardo Craven MD [address] [place] [address] 02/01/2025 9:00 AM [employer]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 Office Visit [facility] [place] [address] [place] [address] Apollo Paul Chandrakant, OD [address] [place] [address] 02/14/2025 3:00 PM [employer]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 Office Visit [facility] [address] [place] [address] Angeli Miles MD [address] [place] [address] Pending Results Name Type Priority Associated Diagnoses Date /Time BLOOD CULTURE Microbiology Stat 5 7:43 PM CDT BLOOD CULTURE Microbiology Stat 5 7:43 PM CDT BLOOD CULTURE Microbiology Stat 5 7:43 PM CDT BLOOD CULTURE Microbiology Stat 5 7:43 PM CDT Scheduled Orders Name Type Priority Associated Diagnoses Orde r Schedule BLOOD CULTURE Microbiology Routine ONE TIME for 1 Occurrences starting 01/03/2025 until 01/03/2025 BLOOD CULTURE Microbiology Routine ONE TIME for 1 Occurrences starting 01/03/2025 until 01/03/2025 Scheduled Procedures Name Priority Associated Diagnoses Date/Ti me CATARACT EXTRACTION IOL INSERTION FEMTO LASER ASSISTED LEVEL 1 Combined forms of age-related cataract of right eye Right retinal detachment 01/25/2025 1:00 PM [employer]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 Author Heart Failure Goal Care Plan Heart Failure Problem No Horn, Latonya, DOCUMENTATION IMPROVEMENT SPECIALIST Autogenerated Goal Care Plan Autogenerated Problem No Windy Dubois documented as of this encounter Procedures Procedure Name Priority Date/Time Associated Diagnosis Comments BLOOD GAS ARTERIAL Stat 01/03/2025 8: 45 PM CDT XR CHEST PA AND LATERAL 2 VW Stat 01/03/2025 8:08 PM CDT RESPIRATORY PATHOGEN PCR PANEL Stat 01/03/2025 7:44 PM CDT EXTRA TUBE (BLUE) Stat 01/03/2025 7:4 3 PM CDT EXTRA TUBE Stat 01/03/2025 7:43 PM CDT LACTIC ACID Stat 01/03/2025 7:43 PM CDT CBC WITH DIFFERENTIAL Stat 01/03/2025 7:43 PM CDT BLOOD CULTURE Stat 01/03/2025 7:43 PM CDT BLOOD CULTURE Stat 01/03/2025 7:43 PM CDT BRAIN NATRIURETIC PEPTIDE, BNP OR PROBNP Stat 01/03/2025 7:43 PM CDT COMPREHENSIVE METABOLIC PANEL Stat 01/03/2025 7:43 PM CDT EKG 12-LEAD Stat 01/03/2025 7:39 PM CDT documented in this encounter Results * (ABNORMAL) BLOOD GAS ARTERIAL (01/03/2025 8:45 PM CDT) [facility] PH BLOOD POC 7.38 7.35 - 7.45 01/03/2025 8:45 PM CDT [facility] PCO2 POC 48(H) 35 - 45 mm Hg 01/03/2025 8:45 PM CDT [facility] PO2 POC 39(LL) 80 - 105 mm Hg 01/03/2025 8:45 PM CDT [facility] HCO3 (CALC) POC 28(H) 22 - 26 mmol/L 01/03/2025 8:45 PM [facility] HEMOGLOBIN POC 11.6(L) 12.0 - 18.0 g/dL 01/03/2025 8:45 PM [facility] BASE EXCESS POC 3 -2 - 3 mmol/L 01/03/2025 8:45 PM [facility] O2 SATURATION POC 67(L) 95 - 98 % 01/03/2025 8:45 PM [facility] SODIUM POC 135(L) 138 - 146 mmol/L 01/03/2025 8:45 PM [facility] POTASSIUM POC 3.6 3.5 - 4.9 mmol/L 01/03/2025 8:45 PM [facility] HEMATOCRIT POC 35(L) 38 - 51 % 01/03/2025 8:45 PM [facility] PH TEMP CORRECT 7.38 7.35 - 7.45 01/03/2025 8:45 PM [facility] PCO2 TEMP CORRECT 48(H) 35 - 45 mm Hg 01/03/2025 8:45 PM [facility] PO2 TEMP CORRECT 39(LL) 80 - 105 mm Hg 01/03/2025 8:45 PM [facility] SPECIMEN SOURCE, GASES POC Arterial 01/03/2025 8:45 PM [facility] CRITICALTO POC QUIRINO RAY DO 01/03/2025 8:45 PM [facility] NAME POC [id number] 01/03/2025 8:45 PM [facility] RESULTS POC Y 01/03/2025 8:45 PM [facility] TIME POC 204401/03/2025 8:45 PM [facility] CALCIUM IONIZED POC 4.8 4.8 - 5.2 mg/dL 01/03/2025 8:45 PM [facility] TCO2 (CALC) POC 30(H) 23 - 27 mmol/L 01/03/2025 8:45 PM [facility] PUNC SITE POC No Charge 01/03/2025 8:45 PM CDT [facility] PATIENT'S TEMPERATURE POC 37.0 degrees 01/03/2025 8:45 PM CDT [facility] Blood, arterial 01/03/2025 8 :45 PM CDT 01/03/2025 8:51 PM CDT us Quirino Ray DO ABG ORDERABLES Final Result [facility] CLIA # [id number] [id number] [place] [address] * XR CHEST PA AND LATERAL 2 VW (01/03/2025 8:08 PM CDT) Anatomical Region Laterality Modality Chest Computed Radiogr aphy 01/03/2025 8:08 PM CDT Impressions 01/04/2025 7:00 AM CDT Impression: The cardiomediastinal structures are magnified. Low lung volumes with mild crowding of the vascular markings. No pulmonary consolidation, pleural effusion or pneumothorax is identified. The osseous structures appear grossly intact. Narrative 01/04/2025 7:00 AM CDT Exam: XR CHEST PA AND LATERAL 2 VW Date/Time of Exam: 01/03/2025 8:08 PM Reason For Exam: Shortness of Breath SOB. Diagnosis: See Reason for Exam. Comparison: December 28, 2024. Procedure Note Guilherme Rubin MD - 01/04/2025 Exam: XR CHEST PA AND LATERAL 2 VW Date/Time of Exam: 01/03/2025 8:08 PM Reason For Exam: Shortness of Breath SOB. Diagnosis: See Reason for Exam. Comparison: December 28, 2024. Impression: The cardiomediastinal structures are magnified. Low lung volumes with mild crowding of the vascular markings. No pulmonary consolidation, pleural effusion or pneumothorax is identified. The osseous structures appear grossly intact. us Quirino Ray DO DIAGNOSTIC IMAGING ORDERABLES F inal Result * RESPIRATORY PATHOGEN PCR PANEL (01/03/2025 7:44 PM CDT) Pathologist [facility] Respiratory Pathogen PCR Panel NOT DETECTED No respiratory pathogen nucleic acids detected. 01/03/2025 8:52 PM CDT [facility] COVID-19 PCR NOT DETECTED Not Detected 01/03/2025 8:52 PM CDT [facility] Upper Respiratory ENTIRE NASOPHARYNX / Unknown Collection / Unknown 01/03/2025 7:44 PM CDT 01/03/2025 7:50 PM CDT Narrative [facility] - 01/03/2025 8:52 PM CDT The Film Array Respiratory Panel [...] pertussis Bordetella parapertussis Chlamydophila pneumoniae Mycoplasma pneumoniae Quirino Ray DO MICROBIOLOGY - GENERAL ORDERABL ES Final Result Performing Organization Address [facility] de Phone Number [facility] CLIA # [id number] [facility] [address] * EXTRA TUBE (BLUE) (01/03/2025 7:43 PM CDT) Blood Venipuncture / Unknown 01/03/2025 7:43 PM CDT 01/03/2025 7:53 PM CDT us Quirino Ray DO HEMATOLOGY ORDERABLES Final Res ult Performing Organization Address [facility] de Phone Number [facility] CLIA # [id number] [address] [place] [address] * (ABNORMAL) BRAIN NATRIURETIC PEPTIDE, BNP OR PROBNP (01/03/2025 7:43 PM CDT) PROBNP, N TERMINAL 376(H) 0 - 125 pg/mL 01/03/2025 9:18 PM CDT [facility] Comment: INTERPRETIVE COMMENT based on [...] years: >1800 pg/mL Blood Venipuncture / Unknown 01/03/2025 7:43 PM CDT 01/03/2025 7:53 PM CDT us Quirino Ray DO CHEMISTRY ORDERABLES Final Resu lt Performing Organization Address City/[facility]/ZIP Co de Phone Number [facility] CLIA # [id number] [address] [address] * (ABNORMAL) LACTIC ACID (01/03/2025 7:43 PM CDT) LACTIC ACID 2.6(H) <=2.0 mmol/L 01/03/2025 8:27 PM CDT [facility] Blood BLOOD SPECIMEN / Unknown Venipuncture / Unknown 01/03/2025 7:43 PM CDT 01/03/2025 7:51 PM CDT us Quirino Ray DO CHEMISTRY ORDERABLES Final Resu lt [facility] CLIA # [id number] [address] [address] [place] [address] * (ABNORMAL) COMPREHENSIVE METABOLIC PANEL (01/03/2025 7:43 PM CDT) [facility] SODIUM 139 136 - 145 mmol/L 01/03/2025 8:27 PM CDT [facility] POTASSIUM 4.1 3.5 - 5.1 mmol/L 01/03/2025 8:27 PM CDT [facility] Comment:Slightly hemolyzed. Result may be falsely elevated. CHLORIDE 102 98 - 107 mmol/L 01/03/2025 8:27 PM T [facility] CO2 25 22 - 29 mmol/L 01/03/2025 8:27 PM CDT [facility] CALCIUM 9.3 8.6 - 10.0 mg/dL 01/03/2025 8:27 PM T [facility] BUN 12 6 - 20 mg/dL 01/03/2025 8:27 PM T [facility] CREATININE 0.48(L) 0.51 - 0.95 mg/dL 01/03/2025 8:27 PM T [facility] GLUCOSE 249(H) 74 - 99 mg/dL 01/03/2025 8:27 PM T [facility] TOTAL PROTEIN 6.7 6.4 - 8.3 g/dL 01/03/2025 8:27 PM T [facility] ALBUMIN 3.6 3.5 - 5.2 g/dL 01/03/2025 8:27 PM T [facility] BILIRUBIN TOTAL 0.2 0.0 - 1.0 mg/dL 01/03/2025 8:27 PM T [facility] ALKALINE PHOSPHATASE 146(H) 35 - 104 U/L 01/03/2025 8:27 PM T [facility] AST 27 10 - 35 U/L 01/03/2025 8:27 PM T [facility] Comment:Hemolysis present. R esult may be falsely elevated. ALT 25 <=35 U/L 01/03/2025 8:27 PM CDT [facility] GFR >60 >=60 mL/min/1. 73 sq meter 01/03/2025 8:27 PM CDT [facility] Comment:eGFR calculated with 2020 CKD-EPI equation. Vegetarian diet, extremely high or low muscle mass, and may affect results. Cystatin C with Glomerular Filtration Rate is a suitable alternative for these patients. ANION GAP 12 9 - 20 mmol/L 01/03/2025 8:27 PM CDT [facility] Blood Venipuncture / Unknown 01/03/2025 7:43 PM CDT 01/03/2025 7:53 PM CDT us Quirino Ray DO CHEMISTRY ORDERABLES Final Resu lt [facility] CLIA # [id number] [address] [place] [address] * (ABNORMAL) CBC WITH DIFFERENTIAL (01/03/2025 7:43 PM CDT) Pathologist [facility] WBC 6.0 4.8 - 10.8 K/uL 01/03/2025 8:01 PM T [facility] NRBCS 2(H) <1 % 01/03/2025 8:01 PM T [facility] RBC 3.98(L) 4.20 - 5.40 M/uL 01/03/2025 8:01 PM T [facility] HEMOGLOBIN 11.5(L) 12.0 - 16.0 g/dL 01/03/2025 8:01 PM T [facility] HEMATOCRIT 37.8 36.0 - 46.0 % 01/03/2025 8:01 PM CDT [facility] MCV 95.0 84.0 - 103.0 fL 01/03/2025 8:01 PM T [facility] MCH 28.9 27.0 - 34.0 pg 01/03/2025 8:[facility] MCHC 30.4 30.0 - 35.0 g/dL 01/03/2025 8:01 PM [facility] PLATELETS 184 140 - 440 K/uL 01/03/2025 8:01 PM [facility] MPV 11.0 8.9 - 12.8 fL 01/03/2025 8:01 PM [facility] RDW 18.5(H) 11.0 - 14.5 % 01/03/2025 8:01 PM [facility] RDW-STDEV 65.4(H) 37.0 - 54.0 fL 01/03/2025 8:01 PM [facility] NEUTROPHILS 42 42 - 75 % 01/03/2025 8:01 PM [facility] LYMPHOCYTES 40 24 - 44 % 01/03/2025 8:01 PM [facility] MONOCYTES 15(H) 2 - 10 % 01/03/2025 8:01 PM [facility] EOSINOPHILS 1 0 - 7 % 01/03/2025 8:01 PM [facility] BASOPHILS 1 0 - 1 % 01/03/2025 8:01 PM [facility] IMMATURE GRANULOCYTES 2 0 - 2 % 01/03/2025 8:01 PM [facility] NEUTROPHIL ABSOLUTE 2.53 2.00 - 8.00 K/uL 01/03/2025 8:01 PM [facility] LYMPHOCYTE ABSOLUTE 2.40 1.20 - 4.00 K/uL 01/03/2025 8:01 PM [facility] MONOCYTE ABSOLUTE 0.87(H) 0.10 - 0.60 K/uL 01/03/2025 8:01 PM [facility] EOSINOPHIL ABSOLUTE 0.07 0.00 - 0.70 K/uL 01/03/2025 8:01 PM [facility] BASOPHILS ABSOLUTE 0.04 0.00 - 0.20 K/uL 01/03/2025 8:01 PM CDT [facility] IMMATURE GRANULOCYTES ABSOLUTE 0.11(H) 0.00 - 0.10 K/uL 01/03/2025 8:01 PM CDT [facility] SMEAR REVIEWED: NN - No Action Needed 01/03/2025 8:01 PM CDT [facility] Blood Venipuncture / Unknown 01/03/2025 7:43 PM CDT 01/03/2025 7:53 PM CDT us Quirino Ray DO HEMATOLOGY ORDERABLES Final Res ult [facility] CLIA # [id number] [address] [place] [address] * EKG 12-LEAD (01/03/2025 7:39 PM CDT) 01/03/2025 7:39 PM CDT Narrative [facility] - 01/05/2025 3:49 [place] [address] Test Date: 2025-01-03 Pat Name: LE DIAZ Department: 11 Room: 10 10 Gender: Female Shop Assistant: [id number] : 1965 Requested By: Order Number: [id number] Reading MD: Mana Moore Measurements Intervals [place] Rate: 102 P: 0 TN: 156 QRS: 149 QRSD: 82 T: -7 QT: 336 QTc: 437 Interpretive Statements Sinus tachycardia Left posterior fascicular block Nonspecific T wave abnormality Abnormal ECG Electronically Signed On 01-05-2025 15:49:08 CDT by Mana Moore Procedure Note Mana Moore MD - 01/05/[address] [address] Test Date: 2025-01-03 Pat Name: LE DIAZ Department: 11 Room: 10 10 Gender: Female Shop Assistant: [id number] : 1965 Requested By: Order Number: [id number] Reading MD: Mana Moore Measurements Intervals [place] Rate: 102 P: 0 TN: 156 QRS: 149 QRSD: 82 T: -7 QT: 336 QTc: 437 Interpretive Statements Sinus tachycardia Left posterior fascicular block Nonspecific T wave abnormality Abnormal ECG Electronically Signed On 01-05-2025 15:49:08 CDT by Mana Moore Quirino Cates DO ECG ORDERABLES Final Result [facility] SYSTEM Refer to clinic/hospital department documented in this encounter Visit Diagnoses Diagnosis COPD with exacerbation (CMS/[facility])- Primary Obstructive chronic bronchitis with exacerbation Combined forms of age-related cataract of right eye Other and combined forms of senile cataract Right retinal detachment Unspecified retinal detachment documented in this encounter Administered Medications Inactive Administered Medications - up to 3 most recent administrations Medication Order MAR Action Action Date Dose Rate Site HYDROmorphone (PF) (DILAUDID) injection 0.3 mg 0.3 mg, IV, EVERY 1 HOUR PRN, Starting on Thu01/03/25 at 1943, Until Thu01/04/25 at 0018, Pain, Moderate, Routine Given 01/03/2025 9:37 PM CDT 0.3 mg Given 01/03/2025 7:49 PM CDT 0.3 mg IPRATROPIUM 0.5 MG-ALBUTEROL 3 MG (2.5 MG BASE)/3 ML NEBULIZATION SOLN (CABINET OVERRIDE) 1 dose, Starting on Thu01/03/25 at 1910, Until Thu01/03/25 at 191, Megan Armendariz E: cabinet override Given 01/03/2025 7:11 PM CDT 3 mL methylPREDNISolone sodium succinate (SOLU-Medrol) 125 mg in sterile water 2 mL injection 125 mg, IV, ONE TIME ONLY, 1 dose, On Thu01/03/25 at 1945, Routine Given 01/03/2025 7:49 PM CDT 125 mg sodium chloride 0.9 % bolus solution 1,000 mL 1,000 mL, IV, ONE TIME ONLY, 1 dose, On Thu01/03/25 at 1945, at 2,000 mL/hr, Administer over 30 Minutes, Routine New Bag 01/03/2025 7:49 PM CDT 1,000 mL 2000 mL/hr documented in this encounter Active and Recently Administered Medications Times are shown in CDT. Scheduled Medication Order 01/01/2025 01/02/2025 01/03/2025 ipratropium-albuteroL (DUONEB) 0.5 mg-3 mg(2.5 mg base)/3 mL inhalation solution 3 mL 3 mL, Inhalation, ONE TIME ONLY RESPIRATORY, 1 dose, On Thu01/03/25 at 1945, Routine 194 (Not Given - Pr ovider: Megan Armendariz - Reason: Clarify-Other (Comment)) methylPREDNISolone sodium succinate (SOLU-Medrol) 125 mg in sterile water 2 mL injection (COMPLETED) 125 mg, IV, ONE TIME ONLY, 1 dose, On Thu01/03/25 at 194, Routine 1948 (Given - Provid er: Kyle Santo RN) sodium chloride 0.9 % bolus solution 1,000 mL (COMPLETED) 1,000 mL, IV, ONE TIME ONLY, 1 dose, On Thu01/03/25 at 194, at 2,000 mL/hr, Administer over 30 Minutes, Routine 1948 (New Bag - Prov ider: Kyle Santo RN)2018 (Stopped - Provider: Kyle Santo RN) PRN Medication Order 01/01/2025 01/02/2025 01/03/2025 HYDROmorphone (PF) (DILAUDID) injection 0.3 mg 0.3 mg, IV, EVERY 1 HOUR PRN, Starting on Thu01/03/25 at 1943, Until Thu01/04/25 at 0018, Pain, Moderate, Routine 1948 (Given - Provid er: Kyle Santo RN)[id number] (Given - Provider: Kyle Santo RN) No Frequency Medication Order 01/01/2025 01/02/2025 01/03/2025 IPRATROPIUM 0.5 MG-ALBUTEROL 3 MG (2.5 MG BASE)/3 ML NEBULIZATION SOLN (CABINET OVERRIDE) (COMPLETED) 1 dose, Starting on Thu01/03/25 at 1910, Until Thu01/03/25 at 1911, Megan Armendariz E: cabinet override 1910 (Given - Provid er: Megan Armendariz) documented in this encounter Additional Health Concerns Active Problems Noted Date Diagnosed Date Heart Failure Problem 05/12/2024 Autogenerated Problem 12/23/2024 Infection Onset Date Last Indicated Resolved Time R/O Respiratory 01/03/2025 01/03/2025 01/03/2025 8 :52 PM CDT documented as of this encounter Care Teams Ob/Gyn Nurse Relationship Specialty Start Date End Date Delta Wade MD [address] [address] PCP - General Family Practice 03/25/24 documented as of this encounter
--- OUTSIDE RECORDS SUMMARY | 2025-01-04 06:42 | XMS_ITS | Encounter Summary ---
Author Organization [facility] Address [address] [place] [address] Care Team Providers Care Cma Name Role Phone Delta Wade MD Primary Care Provider [phone] Reason for Visit * Reason Comments Shortness of Breath COPD hx, CP and SOB since yesterday, labored breathing at triage desk, 96% on home 4L and 118 HR * Auth/Cert (Routine) Specialty Diagnoses / Procedures Referred By Marcelle smith Referred To Contact Emergency Medicine [facility] Emergency Department [facility] [place] [address] Phone: tel: fax: Referral ID Status Reason Start Date Expiration Date Visits Re quested Visits Authorized [id number] 1 1 Encounter Details Date Type Department Care Team (Latest Contact Info) Description 01/04/2025 6:42 AM CDT - 01/06/2025 3:08 PM CDT Hospital Encounter [facility] [place] 6D Neuro Tra[facility] [address] [place] [address] Heike Camarillo MD [address] [place] [address] Nani Borges MD [address] [place] [address] Shailesh Elaine MD [address] [place] [address] Acute on chronic combined systolic and diastolic heart failure Discharge Disposition: Home or Self Care Social [...] any clubs o r organizations such as druze groups, unions, fraternal or athletic groups, or [...] you can t pay for food? No 01/05/2025 Transportation Needs Answer Date Record ed Have you gone without health care because you didn t have a way to get there? Or worry about transportation for future doctor visits, filler picker medication, etc.? No 2024 Housing Stability Answer Date Recorded Do you worry you won t have a steady place to sleep or struggle to pay rent or mortgage? No 01/05/2025 Utility Needs Answer Date Recorded Do you have difficulty payin g for utility costs (electric, water or gas bills)? No 01/05/2025 Medication Needs Answer Date Recorded Have you skipped taking medi cation due to cost or worry you can t afford new medications? No 01/05/2025 Feeling Safe Answer Date Recorded Are you in a relationship wi th someone who hurts you emotionally and/or physically? 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 Gender Identity Not on file Sexual Orientation Not on file documented as of this encounter Last Filed Vital Signs Vital Sign Reading Time Taken Comments Blood Pressure 131/73 01/06/2025 7:00 AM CDT Pulse 96 01/06/2025 12:30 PM CDT Temperature 37.4 C (99.4 F) 01/06/2025 11:00 AM CDT Respiratory Rate 26 01/06/2025 12:30 PM CDT Oxygen Saturation 95% 01/06/2025 12:30 PM CDT Inhaled Oxygen Concentration - - Weight 99.9 kg (220 lb 3.8 oz) 01/06/2025 3:30 A M CDT Height 162.6 cm (5' 4 ) 01/04/2025 12:48 PM CDT Body Mass Index 37.8 01/04/2025 12:48 PM CDT documented in this encounter Discharge Summaries * Shailesh Elaine MD - 01/06/2025 10:28 AM CDT Images from the original note were not included. [facility] Hospitalist- Discharge Summary Le Diaz 59 y.o. female 1965 CSN: [id number] Date of Admission: 01/04/2025 Date of Discharge: 01/06/2025 LOS: 1 day Discharging Physician: Shailesh Elaine MD PCP: Delta Wade MD Code Status at Discharge: Full Code Dispo: Home Labs and studies from this hospitalization needing follow up: CBC and Basic Metabolic Panel (BMP) in 1-2 weeks INR every 48 hours Follow up with PCP: Follow-up: You must follow up with Delta Wade MD in 3-5 days Follow up with Consultants: With cardiology and pulmonology (appointments already set up) Discharge Condition: stable Primary Discharge Diagnosis: Acute on chronic combined systolic and diastolic heart failure Other Active medical issues also addressed during this admission: Active Hospital Problems Diagnosis Chronic anticoagulation Morbid obesity due to excess calories (CMS/HCC) Insulin dependent type 2 diabetes mellitus Acute on chronic hypoxic respiratory failure (CMS/HCC) Acute on chronic combined systolic and diastolic heart failure Chronic respiratory failure with hypoxia, on home O2 therapy ([facility]/HCC) Type 2 diabetes mellitus without complication, without long-term current use of insulin Chronic pain syndrome HEENA (generalized anxiety disorder) Mixed hyperlipidemia Atherosclerosis of [place] coronary artery of [place] heart without angina pectoris Former smoker Bipolar affective disorder (CMS/HCC) Hypertension Resolved Hospital Problems No resolved problems to display. HOSPITAL COURSE: Please see H and P for full details on admission, symptoms and initial care. Vanessa Diaz is a 59-year-old female with a history of COPD, coronary artery disease, prior pulmonary emboli, heart failure, paroxysmal atrial fibrillation, diabetes mellitus type 2, and chronic anticoagulation, who presented with acute shortness of breath and chest pain. She was admitted for evaluation and management of acute on chronic hypoxic respiratory failure secondary to acute on chronic combined systolic and diastolic heart failure. The diagnosis was supported by clinical presentation, elevated BNP (703), baseline troponin (14), hyperglycemia (glucose 468), lactic acid (4.6), and imaging including chest X- ray showing no acute infiltrates or effusion, and a recent echocardiogram d emonstrating an ejection fraction of 40-45% with grade 1 diastolic dysfunction. During hospitalization, she was managed with IV furosemide 80 mg twice daily, low-sodium and fluid-controlled diet, strict intake and output monitoring, and continuation of sacubitril-valsartan and metoprolol. Her home empagliflozin and oral furosemide were held. She required BiPAP briefly in the ED and was weaned to 4 L nasal cannula oxygen, with ongoing monitoring for respiratory status. Cardiac monitoring was performed, and troponin levels were trended; chest pain was considered atypical andlikely related to her respiratory symptoms. She received cardiac rehabilitation and nutrition education focused on heart failure management prior to discharge. Other active medical issues addressed during admission included chronic anticoagulation, morbid obesity, insulin-dependent type 2 diabetes mellitus with hyperglycemia, chronic respiratory failure with hypoxia, chronic pain syndrome, generalized anxiety disorder, mixed hyperlipidemia, atherosclerosis of [place] coronary artery, and bipolar affective disorder. She was monitored for subtherapeutic INR and received warfarin education per protocol. Her respiratory status improved during hospitalization, and she transitioned from IV to oral diuretics. Consultants included IV team, cardiac rehab, andnutrition services. Discharge planning was coordinated for home with family assist. PCP COMMUNICATION : Delta Wade MD via Issue communication MEDICATION RECONCILIATION: Current and discharge medications reviewed and reconciled: Yes Consultants: IP CONSULT TO IV TEAM IP CONSULT TO IV TEAM IP CONSULT TO CARDIAC REHAB IP CONSULT TO NUTRITION SERVICES IP CONSULT TO HOME CARE NEEDS IP CONSULT TO IV TEAM Procedures performed: 01/04 0835 INSERT PERIPHERAL IV, INSERT MIDLINE IV DISCHARGE MEDICATIONS: Medication List START taking these medications pantoprazole 40 mg Tablet, Delayed Release (E.C.) Commonly known as: PROTONIX Take 1 Tablet (40 mg) by mouth daily before breakfast. Start taking on: January 07, 2025 Signed by: Dr. Pio Elaine Quantity: 30 Tablet Refills: 0 CONTINUE taking these medications acetaminophen 325 mg tablet Commonly known as: TYLENOL Take 2 Tablets (650 mg) by mouth every 6 hours as needed for Pain, Mild / Temperature (.). Signed by: Dr. Ofelia Lee Refills: 0 amitriptyline 25 mg tablet [...] Myron Burk Quantity: 1 Each Refills: 0 cguqsfhcqc-frxcmxycftdprj-hmneqliqzw 160-9-4.8 mcg/actuation HFA Aerosol Inhaler Commonly known as: BREZTRI Take 2 Puffs by inhalation 2 times daily. Signed by: Dr. Juliette Romano Quantity: 60 Each Refills: 1 empagliflozin 10 [...] mouth 2 times daily. Signed by: Dr. Juliette Romano Quantity: 60 Tablet Refills: 3 HYDROcodone-acetaminophen 7.5-325 mg Tablet Commonly known as: NORCO Take 1 Tablet by mouth every 8 hours as needed for Pain, Moderate or Pain, Severe. Refills: 0 insulin glargine-yfgn 100 unit/mL pen syringe Inject 45 Units by subcutaneous injection 2 times daily. Signed by: Dr. Ofelia Chen Quantity: 15 mL Refills: 0 insulin lispro 100 unit/mL pen syringe Commonly known as: HumaLOG,ADMELOG Inject 14 Units by subcutaneous injection 3 times daily with meals. Signed by: Dr. Bala Deluna Refills: 0 ipratropium-albuteroL 0.5 mg-3 mg(2.5 mg base)/3 mL Solution for Nebulization Commonly known as: DUONEB Take 3 mL by inhalation every 4 hours as needed for Shortness of Breath. Signed by: Dr. Juliette Cho Quantity: 300 mL Refills: 1 isosorbide mononitrate 30 mg Extended Release 24 hour tablet Commonly known as: IMDUR TAKE 1 TABLET BY MOUTH EVERY DAY Signed by: Nurse Practitioner Pio Virgen Quantity: 30 Tablet Refills: 1 levalbuterol 1.25 mg/3 mL Solution for Nebulization Commonly known as: XOPENEX Take 3 mL (1.25 mg) by inhalation every 6 hours as needed for Shortness of Breath or Wheezing. Signed by: Dr. Juliette Romano Quantity: 300 mL Refills: 3 lidocaine 5 % Adhesive Patch, Medicated Commonly known as: LIDODERM Apply 1 Patch to affected area every 24 hours. Signed by: Dr. Juliette Romano Quantity: 30 Patch Refills: 0 meclizine 12.5 mg tablet Commonly known as: ANTIVERT Take 1 Tablet (12.5 mg) by mouth 3 times daily. Signed by: Dr. Ofelia Chen Quantity: 15 Tablet Refills: 0 metoprolol succinate 25 mg Extended Release 24 hour tablet Commonly known as: TOPROL XL Take 1 Tablet (25 mg) by mouth daily. Signed by: Dr. Juliette Romano Quantity: 30 Tablet Refills: 3 miconazole 2 % Cream Commonly known as: SEAN,MICOTIN,REMEDY AF Apply to affected area 2 times daily. Signed by: Dr. Ofelia Chen Quantity: 15 Gram Refills: 0 naloxone 4 mg/spray [place], Non-Aerosol Commonly known as: NARCAN EMERGENCY USE [...] mouth 2 times daily. Signed by: Dr. Juliette Romano Quantity: 60 Tablet Refills: 3 sertraline 50 mg tablet Commonly known as: ZOLOFT Take 50 mg by mouth daily. Refills: 0 tiotropium-olodateroL 2.5-2.5 mcg/actuation metered inhaler Commonly known as: STIOLTO RESPIMAT Take 2 Puffs by inhalation daily. Signed by: Dr. Juliette Cho Quantity: 4 Gram Refills: 11 triamcinolone acetonide 0.1 % Ointment Commonly known as: KENALOG Apply to affected area 2 times daily. Signed by: Dr. Ofelia Chen Quantity: 15 Gram Refills: 0 * Ventolin HFA 90 mcg/actuation inhaler Take 2 Puffs by inhalation every 6 hours as needed. Refills: 0 Generic drug: albuterol sulfate * albuterol sulfate 90 mcg/Actuation inhaler Take 2 Puffs by inhalation every 6 hours as needed for Shortness of Breath. Signed by: Dr. Juliette Cho Quantity: 8.5 Gram Refills: 5 warfarin 10 mg tablet Commonly known as: COUMADIN Take 10 mg by mouth. She does not remember instructions about warfarin Refills: 0 zinc OXIDE-cod liver oil 40 % Paste Commonly known as: DESITIN Apply to affected area see administration instructions. Signed by: Dr. Severo Blas Quantity: 57 Gram Refills: 0 * !!Potential duplicate medications found. Review medication list carefully. STOP taking these medications benzonatate 100 mg capsule Commonly known as: TESSALON ASK your doctor about these medications cefpodoxime 200 mg Tablet Commonly known as: VANTIN Take 1 Tablet (200 mg) by mouth every 12 hours for 5 days. Signed by: Dr. Juliette hCo Quantity: 10 Tablet Refills: 0 Ask about: Should I take this medication? Where to Get Your Medications These medications were sent to [facility]/pharmacy #[id number] - [place], [place] - [address] [facility] [address], [facility] [address] Hours: M-F [id number] Sat [id number] Sun closed pantoprazole 40 mg Tablet, Delayed Release (E.C.) Future Appointments Date Time Provider Department Center 01/12[facility]2025 1:40 PM [facility] 8:30 AM Eduardo Craven MD [facility] 02/01/2025 9:00 AM Paul Bustillos OD [facility] 02/14/2025 3:00 PM Angeli Miles MD [facility] Activity level: up as tolerated Diet: DIET DIABETIC Wound Care: Not Applicable DISCHARGE EXAM: BP 131/73 Pulse 95 Temp 99.1 ??F (37.3 ??C) (Axillary) Resp 21 Ht 5' 4 (1.626 m) Wt 99.9kg (220 lb 3.8 oz) SpO2 97% BMI 37.80 kg/m?? Last documented weight: Weight: 99.9 kg (220 lb 3.8 oz) (01/06/25 0330) General: alert, in no distress Neurologic: Grossly [...] care and follow up required 35 minutes. documented in this encounter Discharge Instructions * Discharge Instructions* Russell Spencer RN - 01/05/2025 8:53 AM CDT Thank you for participating in [...] be healthy Follow a low salt diet by using a salt substitute to season your food, choosing low or no salt foods and not adding additional salt to your meals. Monitor fluid intake. Restrict fluids if ordered by your provider. Take your medications as instructed Try to [...] Call your health care provider today: Your Primary Care Team is available 13/10. Please Contact: Delta Wade MD {No department listed for PCP} Your weight goes up 2 pounds in one day or 1-le-6-pound gradual weight gain over a week. You [...] chest pain that will not go away. * Attachments The following attachments cannot be sent through Care Everywhere. * Heart Failure: Limiting Sodium (Bulgarian) * Healthy Diet: Heart (Bulgarian) * Heart Failure: Restricting Fluids: General Info (Bulgarian) * Oxygen Therapy (Bulgarian) * Pantoprazole (Bulgarian) documented in this encounter Medications at Time of Discharge pantoprazole (PROTONIX) 40 mg Tablet, Delayed Release (E.C.) Take 1 Tablet (40 mg) by mouth daily before breakfast. 30 Tablet 5 oxygen home delivery Home Oxygen Concentrator yes at 0 L/M Rest, 2 L/M Activity, 0 L/M Sleep, Delivery Device: Nasal Cannula Portability: yes, 0 L/M Rest, 2 L/M Activity, May provide device best for patient needs(E system,home fill, conserving device) Length of Need: 99 months 1 Each 5 tiotropium-olodat Lisa (STIOLTO RESPIMAT) 2.5-2.5 mcg/actuation metered [...] 1 Each 4 naloxone (NARCAN) 4 mg/spray [place], Non-Aerosol EMERGENCY USE ONLY: Administer 1 spray [...] as of this encounter Progress Notes * Tanya Romero RN - 01/06/2025 1:24 PM CDT Soonest follow up appointment was scheduled for patient with PCP, and this RN voiced concerns from hospitalist regarding warfarin management. They said they would let PCP know regarding concerns. * Tanya Romero RN - 01/06/2025 12:28 PM CDT This RN confirmed with patient that she gets her home oxygen through [employer]. Her ride home (Chaz) is to bring up her oxygen for transport home. Also awaiting for PCP to return from lunch in order to inquire about Warfarin management and schedule follow up appointment. * Russell Spencer RN - 01/06/2025 10:55 AM CDT Oxygen Saturation Study Lowest SpO2 Heart Rate Range Distance in Feet Dyspnea Pre-Exertion Rest: Room Air 94% 88 Lying in bed None Ambulation Room Air 86% 88-111 Ambulating Mild Oxygen @ 2 L/min via Nasal Cannula 91% 88-116 150 feet Mild Length of time walked in minutes: 6 Number of rest periods (if applicable): 0 Patient response to exercise: Tolerated well with SBA. Oxygen required to maintain SpO2 >88% (will require portability): YES Recommendations: Oxygen at REST: R/A Oxygen with ACTIVITY: 2 LPM Using finger probe This Home Oxygen Evaluation has been performed for an awake and mobile patient and is not an evaluation for Nocturnal Sleep Study oxygen requirements. Unless patient's condition warrants a repeat Home Oxygen Evaluation, this Home Oxygen Evaluation isvalid for 48 hours from date/time performed. Siderails up x 2 Call light within patient reach Cardiopulmonary Rehab Team Zone Phone: [phone] * Shailesh Elaine MD - 01/05/2025 10:42 AM CDT Images from the original note were not included. Your life is our life's work [facility] Hospitalist/Hospital Medicine Progress Note LOS: 0 days Room/Bed: 6256/01 Patient name: Le Diaz Date of : 1965 HOSPITAL COURSE SUMMARY: Vanessa Diaz is a 59-year-old female with a history of COPD, coronary artery disease, prior pulmonary emboli, heart failure, paroxysmal atrial fibrillation, diabetes mellitus type 2, and chronic anticoagulation, who presented with acute shortness of breath and chest pain. She was admitted for evaluation and management of acute on chronic hypoxic respiratory failure secondary to acute on chronic combined systolic and diastolic heart failure. The diagnosis was supported by clinical presentation, elevated BNP (703), baseline troponin (14), hyperglycemia (glucose 468), lactic acid (4.6), and imaging including chest X- ray showing no acute infiltrates or effusion, and a recent echocardiogram d emonstrating an ejection fraction of 40-45% with grade 1 diastolic dysfunction. During hospitalization, she was managed with IV furosemide 80 mg twice daily, low-sodium and fluid-controlled diet, strict intake and output monitoring, and continuation of sacubitril-valsartan and metoprolol. Her home empagliflozin and oral furosemide were held. She required BiPAP briefly in the ED and was weaned to 4 L nasal cannula oxygen, with ongoing monitoring for respiratory status. Cardiac monitoring was performed, and troponin levels were trended; chest pain was considered atypical andlikely related to her respiratory symptoms. She received cardiac rehabilitation and nutrition education focused on heart failure management prior to discharge. 01/05 improving respiratory status compared to yesterday, hypotension this morning/overnight; Lasixtransition to p.o. and Entresto was retimed for tomorrow. Monitoring blood glucose levels and vitalsigns closely. A.m. labs ordered. Discussed plan of care with patient and RN. Consultants: IP CONSULT TO IV TEAM IP CONSULT TO IV TEAM IP CONSULT TO CARDIAC REHAB IP CONSULT TO NUTRITION SERVICES IP CONSULT TO HOME CARE NEEDS SUBJECTIVE: Patient reports to be doing well. Denies chest pain or shortness of breath OBJECTIVE: Temp (24hrs), Av.9 ??F (36.6 ??C), Min:97.4 ??F (36.3 ??C), Max:98.6 ??F (37 ??C) BP 129/71 Pulse 91 Temp 98.6 ??F (37 ??C) (Axillary) Resp 21 Ht 5' 4 (1.626 m) Wt 101.1 kg (222 lb 14.2 oz) SpO2 97% BMI 38.26 kg/m?? Intake/Output Summary (Last 24 hours) at 01/05/2025 1042 Last data filed at 01/05/2025 0800 Gross per 24 hour Intake 1620 ml Output 2802 ml Net -1182 ml Last documented weight: Weight: 101.1 kg (222 lb 14.2 oz) (01/05/25 0400) EXAM: General: alert, in no distress Neurologic: [...] thighs, normal strength, normal tone Skin: negative LABORATORY: Recent Labs 01/03/25194201/04/25 0739 01/05/25 0436 WBC 6.0 8.2 6.2 HGB 11.5* 11.0* 10.4* HCT 37.8 35.4* 34.4* PLT 184 196 174 Recent Labs 01/03/25194201/04/25 0824 01/05/25 0436 NA 139 137 138 K 4.1 4.7 3.9 CL 102 101 101 CO2 25 21* 25 CA 9.3 9.8 9.2 BUN 12 16 21* CREAT 0.48* 0.53 0.58 GLUCOSE 249* 468* 443* Recent Labs 01/03/25194201/04/25 0824 TOTALPROTEIN 6.7 7.0 ALBUMIN 3.6 3.8 BILITOTAL 0.2 0.2 ALKPHOS 146* 159* AST 27 33 ALT 25 33 Recent Labs 01/04/25 0824 01/05/25 0436 INR 1.0 1.2 PT 13.5 15.6* Recent Labs 01/04/25 0859 01/04/25 1052 01/04/25 1415 BASETROP 14* -- -- 2HRTROP -- 15* -- DELTA -- 1 4 6HRTROP -- -- 18* Diagnostic testing reviewed by me: Medications were reviewed by me. Current Facility-Administered Medications: [COMPLETED] insulin lispro (HumaLOG,ADMELOG) injection 10 Units, 10 Units, subCUT, ONE time only, Derrick Maldonado MD, 10 Units at 01/05/25 0540 [START ON 01/06/2025] sacubitriL-valsartan (ENTRESTO) 24-26 mg tablet 1 Tablet, 1 Tablet, Oral, BID, Shailesh Elaine MD furosemide (LASIX) tablet 80 mg, 80 mg, Oral, BID, 7 hours apart, Shailesh Elaine MD, 80 mg at 01/05/25 0902 [DISCONTINUED] furosemide (LASIX) tablet 40 mg, 40 mg, Oral, BID, 7 hours apart, Shailesh Elaine MD [DISCONTINUED] furosemide (LASIX) tablet 80 mg, 80 mg, Oral, BID, 7 hours apart, Shailesh Elaine MD sodium chloride flush injection 10 mL, 10 mL, IV, every 12 hours (2 times daily), Karma Borges MD, 10 mL at 01/05/25 0839 sodium chloride flush injection 10 mL, 10 mL, IV, see admin instructions, Nani Borges MD sodium chloride 0.9 % flush bag 25 mL, 25 mL, IV, see admin instructions, Nani Borges MD dextrose 5 % in water 250 mL flush bag 25 mL, 25 mL, IV, see admin instructions, Nani Borges MD sodium chloride flush injection 10 mL, 10 mL, IV, every 12 hours, Nani Borges MD, 10 mL at 01/05/25 0839 sodium chloride flush injection 5 mL, 5 mL, IV, see admin instructions, Nani Borges MD HYDROcodone-acetaminophen (NORCO) 7.5-325 mg per tablet 1 Tablet, 1 Tablet, Oral, every 8 hours PRN, Nani Borges MD, 1 Tablet at 01/05/25 0904 aspirin (CARTER CHEWABLE) chewable tablet 81 mg, 81 mg, Oral, daily, Nani Borges MD, 81 mg at 01/05/25 0835 warfarin (COUMADIN) tablet 10 mg, 10 mg, Oral, daily LATE, Nani Borges MD, 10 mg at 01/04/25 1723 atorvastatin (LIPITOR) tablet 40 mg, 40 mg, Oral, daily BEDTIME, Nani Borges MD, 40 mg at 01/04/25 2004 isosorbide mononitrate (IMDUR) SR 24 hour tablet 30 mg, 30 mg, Oral, daily, Nani Borges MD, 30 mg at 01/05/25 0835 metoprolol succinate (TOPROL XL) SR 24 hour tablet 25 mg, 25 mg, Oral, daily, Nani Borges MD, 25 mg at 01/05/25 0837 ipratropium-albuteroL (DUONEB) 0.5 mg-3 mg(2.5 mg base)/3 mL inhalation solution 3 mL, 3 mL, Inhalation, resp, every 6 hours, Nani Borges MD meclizine (ANTIVERT) tablet 12.5 mg, 12.5 mg, Oral, TID, Nani Borges MD, 12.5 mg at 01/05/25 0837 amitriptyline (ELAVIL) tablet 25 mg, 25 mg, Oral, daily, Nani Borges MD, 25 mg at 01/05/25 08 OLANZapine (ZyPREXA) tablet 10 mg, 10 mg, Oral, daily BEDTIME, Nani Borges MD, 10 mg at 01/04/252004 sertraline (ZOLOFT) tablet 50 mg, 50 mg, Oral, daily, Nani Borges MD, 50 mg at 01/05/25 0900 acetaminophen (TYLENOL) tablet 650 mg, 650 mg, Oral, every 6 hours PRN, Nani Borges MD benzonatate (TESSALON) capsule 100 mg, 100 mg, Oral, every 4 hours PRN, Nani Borges MD rOPINIRole (REQUIP) tablet 0.5 mg, 0.5 mg, Oral, daily BEDTIME, Nani Borges MD, 0.5 mg at 01/04/252003 Lidocaine 4 % topical patch 1 Patch, 1 Patch, Topical, daily, Nani Borges MD naloxone (NARCAN) 0.4 mg/mL injection 0.1-0.4 mg, 0.1-0.4 mg, IV, see admin instructions, Nani Borges MD ondansetron (ZOFRAN) 4 mg/2 mL injection 4 mg, 4 mg, IV, every 6 hours PRN, Nani Borges MD sennosides-docusate sodium (SENNA-S) 8.6-50 mg per tablet 1 Tablet, 1 Tablet, Oral, BID, Nani Borges MD, 1 Tablet at 01/05/25 0835 magnesium HYDROXIDE (MILK OF MAGNESIA) oral suspension 30 mL, 30 mL, Oral, daily PRN OR bisacodyL (DULCOLAX) rectal suppository 10 mg, 10 mg, Rectal, daily PRN, Nani Borges MD melatonin tablet 3 mg, 3 mg, Oral, at bedtime PRN, Nani Borges MD dextrose 5 % - sodium chloride 0.9 % infusion, , IV, see admin instructions, Nani Borges MD dextrose 50% (D50) syringe 12.5 Gram, 12.5 Gram, IV, see admin instructions, Nani Borges MD dextrose 50% (D50) syringe 25 Gram, 25 Gram, IV, see admin instructions, Nani Borges MD glucagon HCL 1 mg/mL injection 1 mg, 1 mg, IM, see admin instructions, Nani Borges MD insulin glargine (LANTUS) injection 45 Units, 45 Units, subCUT, BID, Nani Borges MD, 45 Units at 01/05/25 0840 insulin lispro (HumaLOG,ADMELOG) injection 15 Units, 15 Units, subCUT, TID WITH meals, Nani Borges MD, 15 Units at 01/05/25 0722 insulin lispro (HumaLOG,ADMELOG) injection 0-12 Units, 0-12 Units, subCUT, TID WITH meals, Nani Borges MD, 8 Units at 01/05/25 0722 insulin lispro (HumaLOG,ADMELOG) injection 0-6 Units, 0-6 Units, subCUT, daily BEDTIME, Nani Borges MD fluticasone furoate-vilanteroL (BREO ELLIPTA) 100-25 mcg/dose inhaler 1 Puff, 1 Puff, Inhalation, resp, daily, 1 Puff at 01/05/25 0724 AND umeclidinium (INCRUSE ELLIPTA) 62.5 mcg/actuation inhaler 1 Puff, 1 Puff, Inhalation, resp, daily, Nani Borges MD, 1 Puff at 01/05/25 0724 ibuprofen (MOTRIN) tablet 400 mg, 400 mg, Oral, every 6 hours PRN, Nani Borges MD, 400 mg at 01/05/25 0722 [COMPLETED] oxyCODONE (ROXICODONE) tablet 5 mg, 5 mg, Oral, ONE time only, Tiffanie Dawn, POLICE COMMUNICATIONS OPERATOR, 5 mg at 01/04/252004 [DISCONTINUED]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 Facility-Administered Medications: sodium chloride flush injection 10 mL, 10 mL, IV, every 12 hours (2 times daily), Heike Camarillo MD sodium chloride flush injection 10 mL, 10 mL, IV, see admin instructions, Heike Camarillo MD sodium chloride 0.9 % flush bag 25 mL, 25 mL, IV, see admin instructions, Heike Camarillo MD dextrose 5 % in water 250 mL flush bag 25 mL, 25 mL, IV, see admin instructions, Heike Camarillo MD [COMPLETED] fentaNYL (PF) (SUBLIMAZE) 50 mcg/mL injection 50 mcg, 50 mcg, IV, ONE time only, Heike Camarillo MD, 50 mcg at 01/04/25 0738 povidone-iodine (BETADINE) 5 % ophthalmic solution 1 Drop, 1 Drop, Right Eye, intra-proc ONE time, Kumar Ochoa MD vancomycin in NS (PF) 1 mg/0.1 mL ophthalmic solution compound 0.3 mL, 0.3 mL, Right Eye, intra-proc ONE time, Kumar Ochoa MD Current Outpatient Medications: tiotropium-olodateroL (STIOLTO RESPIMAT) 2.5-2.5 mcg/actuation metered inhaler, Take 2 Puffs by inhalation daily., Disp: 4 Gram, Rfl: 11 ipratropium-albuteroL (DUONEB) 0.5 mg-3 mg(2.5 mg base)/3 mL Solution for Nebulization, Take 3 mL by inhalation every 4 hours as needed for Shortness of Breath., Disp: 300 mL, Rfl: 1 albuterol sulfate HFA 90 mcg/actuation aerosol inhaler, Take 2 Puffs by inhalation every 6 hours asneeded for Shortness of Breath., Disp: 8.5 Gram, Rfl: 5 [] cefpodoxime (VANTIN) 200 mg Tablet, Take 1 Tablet (200 mg) by mouth every 12 hours for 5 days., Disp: 10 Tablet, Rfl: 0 warfarin (COUMADIN) 10 mg tablet, Take 10 mg by mouth. She does not remember instructions about warfarin, Disp: , Rfl: budesonide 160 mcg-glycopyr 9 mcg-formot 4.8 mcg/actuation HFA inhaler, Take 2 Puffs by inhalation 2 times daily., Disp: 60 Each, Rfl: 1 levalbuterol (XOPENEX) 1.25 mg/3 mL Solution for Nebulization, Take 3 mL (1.25 mg) by inhalation every 6 hours as needed for Shortness of Breath or Wheezing., Disp: 300 mL, Rfl: 3 furosemide (LASIX) 80 mg tablet, Take 1 Tablet (80 mg) by mouth 2 times daily., Disp: 60 Tablet, Rfl: 3 lidocaine (LIDODERM) 5 % Adhesive Patch, Medicated, Apply 1 Patch to affected area every 24 hours.,Disp: 30 Patch, Rfl: 0 metoprolol succinate (TOPROL XL) 25 mg Extended Release 24 hour tablet, Take 1 Tablet (25 mg) by mouth daily., Disp: 30 Tablet, Rfl: 3 sacubitriL-valsartan (ENTRESTO) 24-26 mg Tablet, Take 1 Tablet by mouth 2 times daily., Disp: 60 Tablet, Rfl: 3 meclizine (ANTIVERT) 12.5 mg tablet, Take 1 Tablet (12.5 mg) by mouth 3 times daily., Disp: 15 Tablet, Rfl: 0 miconazole (SEAN,MICOTIN,REMEDY AF) 2 % Cream, Apply to affected area 2 times daily., Disp: 15 Gram, Rfl: 0 triamcinolone acetonide (KENALOG) 0.1 % Ointment, Apply to affected area 2 times daily., Disp: 15 Gram, Rfl: 0 insulin glargine-yfgn 100 unit/mL pen syringe, Inject 45 Units by subcutaneous injection 2 times daily., Disp: 15 mL, Rfl: 0 sertraline (ZOLOFT) 50 mg tablet, Take 50 mg by mouth daily., Disp: , Rfl: rOPINIRole (REQUIP) 0.5 mg tablet, Take 0.5 mg by mouth daily at bedtime., Disp: , Rfl: amitriptyline (ELAVIL) 25 mg tablet, Take 25 mg by mouth daily., Disp: , Rfl: benzonatate (TESSALON) 100 mg capsule, Take 1 Capsule (100 mg) by mouth every 4 hours as needed forCough., Disp: 60 Capsule, Rfl: 1 zinc OXIDE-cod liver oil (DESITIN) 40 % Paste, Apply to affected area see administration instructions., Disp: 57 Gram, Rfl: 0 acetaminophen (TYLENOL) 325 mg tablet, Take 2 Tablets (650 mg) by mouth every 6 hours as needed forPain, Mild / Temperature (.)., Disp: , Rfl: HYDROcodone-acetaminophen (NORCO) 7.5-325 mg Tablet, Take 1 Tablet by mouth every 8 hours as neededfor Pain, Moderate or Pain, Severe., Disp: , Rfl: empagliflozin (JARDIANCE) 10 mg tablet, Take 1 Tablet (10 mg) by mouth daily in the morning., Disp:30 Tablet, Rfl: 0 Nebulizer & Compressor For Neb Device, every 4 hours as needed for Other (See Comment) (shortness of breath)., Disp: 1 Each, Rfl: 0 insulin lispro (HumaLOG,ADMELOG) 100 unit/mL [...] mouth daily at bedtime., Disp: , Rfl: nitroglycerin (NITROSTAT) 0.4 mg Tablet, Sublingual, Place 0.4 mg under tongue., Disp: , Rfl: OLANZapine (ZyPREXA) 10 mg tablet, Take 10 mg by mouth daily at bedtime., Disp: , Rfl: aspirin (CARTER CHEWABLE) 81 mg Tablet, Chewable, Take 81 mg by mouth daily., Disp: , Rfl: fluorouraciL (EFUDEX) 5 % Cream, , Disp: , Rfl: portable oxygen, Face to Face completed within 30 days: yes Length of Need: 99 months By: Nasal Cannula Continuously at 3 L/min., Disp: 1 Each, Rfl: 0 naloxone (NARCAN) 4 mg/spray [place], Non-Aerosol, EMERGENCY USE ONLY: Administer 1 spray [...] 0 Facility-Administered Medications Ordered in Other Encounters: [COMPLETED] IPRATROPIUM 0.5 MG-ALBUTEROL 3 MG (2.5 MG BASE)/3 ML NEBULIZATION SOLN (CABINET OVERRIDE), , , , , 3 mL at 01/03/251910 [COMPLETED] sodium chloride 0.9 % bolus solution 1,000 mL, 1,000 mL, IV, ONE time only, Yanely Catesin, DO, Stopped at 01/03/252018 [COMPLETED] methylPREDNISolone sodium succinate (SOLU-Medrol) 125 mg in sterile water 2 mL injection, 125 mg, IV, ONE time only, Edmundo Cates, DO, 125 mg at 01/03/251948 [DISCONTINUED] ipratropium-albuteroL (DUONEB) 0.5 mg-3 mg(2.5 mg base)/3 mL inhalation solution 3 mL, 3 mL, Inhalation, resp, one time only, Yanely Catesin, DO [DISCONTINUED] HYDROmorphone (PF) (DILAUDID) injection 0.3 mg, 0.3 mg, IV, every 1 hour PRN, Edmundo Cates, DO, 0.3 mg at 01/03/252136 PLAN Plan to place a piv and obtain blood for labs. ADDENDUM: Ms. Diaz had an IV present in the right lower arm, not documented in the LDA at this time of visit, that had blood backed into the extension tubing. This nurse assessed this PIV via ultrasound and could see the IV catheter within the vein and when flushing this PIV could see that the saline entered the vein with no sign of infiltration via ultra sound. This informed primary nurse whowas at bedside, to change the extension tubing, as the IV itself is appropriate for use. Ms Diaz also had a PIV in the right upper basilic vein, also not documented in LDA at this time of visit, ofwhich was no longer in the vein via ultra sound. This nurse removed this PIV, primary nurse aware. Ms. Diaz had three other attempts or previous IV's in the right shoulder, left shoulder and the left basilic vein,guaze and tape still present on all 3, this nurse removed. Bilateral upper cephalic veins would not compress, the left upper basilic vein also would not compress. Bilateral lower arm veins either too small for a 24G PIV or will not compress. Primary nurse made aware and a midline order was obtained while this nurse still at bedside. Tasha Glynn RN documented in this encounter ED Notes * Diana Moreno RN - 01/04/2025 1:04 PM CDT Report called to Makayla on 6D. * Angella Valencia RN - 01/04/2025 12:21 PM CDT Provided patient w/ meal tray and water. Boosted in the bed. Purewick placed and clean depends. * Diana Moreno RN - 01/04/2025 10:17 AM CDT This RN rounded on pt at this time. Pt given medication per MAY. Pt denies any further needs at this time. Call light in reach. Family at bedside. * Diana Moreno RN - 01/04/2025 10:07 AM CDT This RN rounded on pt at this time. Pt currently off bipap. Pt given water per pt request. Pt requesting pain medication, physician notified at this time. Call light in reach. Family at bedside. * Diana Moreno RN - 01/04/2025 9:00 AM CDT This RN rounded on pt at this time. Pt resting quietly with eyes closed. Specimens collected per order and sent to lab. Pt requested pain medication, physician notified at this time. Call light in reach. Family at bedside. * Diana Moreno RN - 01/04/2025 8:16 AM CDT This RN rounded on pt at this time. PICC team currently at bedside. Pt denies any current needs at this time. Family at bedside. Call light in reach. * Diana Moreno RN - 01/04/2025 7:53 AM CDT This RN rounded on pt at this time. Pt currently on Bipap. Pt adjusted in bed for comfort. Specimens drawn and sent to lab. Pt family at bedside. Call light in reach. Pt denies any further needs at this time. * Shasha Williamson PCA - 01/04/2025 7:53 AM CDT Full bed changed. Pt repositioned. Call light within reach. * Diana Moerno RN - 01/04/2025 7:29 AM CDT Received report from MARGOT Fonseca and assumed care at this time. * Marian Blake LPN - 01/04/2025 6:46 AM CDT Patient received from triage, labored breathing. Airway patient and self maintained. Brother at bedside. Dr. Camarillo and RT also at bedside. * Son Lewis RN - 01/04/2025 6:40 AM CDT Le Diaz is a 59 y.o. female who came into [facility] complaining of SOB/COPD exacerbation that started last night. Patient reports giving herself 2 albuterol treatments at home without relief. Patient at 96% on her baseline 4LNC. Patient alert, behavior and orientation appropriate to age. Skin normal for ethnicity, warm., dry. Respirations even and unlabored. Patient Chief Complaint Patient presents with Shortness of Breath COPD hx, CP and SOB since yesterday . ED triage protocol initiated. Comfort measures offered. Patient to Waiting Room with instructions to return to Triage desk for worsening symptoms or other concerns. Discussed patient's pain and/or nausea management. Offered medication per triage protocols. Patientdoes not desire oral medication offered. * Heike Camarillo MD - 01/04/2025 6:33 AM CDT EMERGENCY MEDICINE PHYSICIAN EVALUATION NOTE HISTORY History of Present Illness The individual with COPD exacerbation, cardiac catheterization with 7 stents, and a blood clot in the right lung is presenting with dyspnea. The patient was evaluated on 01/03/2025 and advised to return if the condition worsened. Currently, the patient is experiencing dyspnea, chest discomfort, andleft arm pain, which are preventing sleep. The patient reports leg and arm swelling, but no fever or myalgia. There is a cough without sputum. The patient describes feeling run over and reports anxiety, although it is not contributing to the dyspnea. The patient uses 3-4 liters of oxygen. The patient is extremely fatigued, and the dyspnea worsens when lying down. Friends reported that the patient woke up gasping at 2:00 AM. The patient requests BiPAP. The patient is on warfarin and took a dose last night but not this morning. The patient uses oxygen therapy and finds BiPAP beneficial. Thereis a history of a blood clot in the right lung. An X-ray was performed on 01/03/2025, but no CT scan was done. The patient is negative for sleep apnea. PHYSICAL EXAM Initial Vital Signs BP: (!) 165/113 (01/04/25648), Heart Rate: (!) 110 bpm (01/04/25648), Resp: (!) 31 (01/04/25648), Pulse: (!) 112 (01/04/25648), Temp: 97.6 ??F (36.4 ??C) (01/04/251008), Temp src: Oral (01/04/251008), SpO2: 92 % (01/04/25648), Height: (not recorded), Weight: (not recorded), BMI (Calculated): (not recorded) Physical Exam General Appearance: Chronically ill-appearing individual, tachypneic, speaking in full sentences HEENT: Normocephalic Respiratory: Lungs clear to auscultation Cardiovascular: 2+ DP pulses Skin: Warm and dry, no rash Neurological: Alert and oriented x3 Last Vital Signs BP: 107/77 (01/04/254), Heart Rate: (!) 107 bpm (01/04/251008), Resp: 20 (01/04/251008), Pulse: (!) 104 (01/04/251008), Temp: 97.6 ??F (36.4 ??C) (01/04/251008), Temp src: Oral (01/04/251008), SpO2: 93 % (10/15/25 1009) DIAGNOSTIC TESTING Labs CBC WITH DIFFERENTIAL - Abnormal Result Value WBC 8.2 NRBCS 2 (*) RBC 3.81 (*) HEMOGLOBIN 11.0 (*) HEMATOCRIT 35.4 (*) MCV 92.9 MCH 28.9 MCHC 31.1 PLATELETS 196 MPV 11.2 RDW 18.9 (*) RDW-STDEV 63.9 (*) NEUTROPHILS 80 (*) LYMPHOCYTES 15 (*) MONOCYTES 3 EOSINOPHILS 0 BASOPHILS 0 IMMATURE GRANULOCYTES 2 NEUTROPHIL ABSOLUTE 6.55 LYMPHOCYTE ABSOLUTE 1.20 MONOCYTE ABSOLUTE 0.28 EOSINOPHIL ABSOLUTE 0.00 BASOPHILS ABSOLUTE 0.02 IMMATURE GRANULOCYTES ABSOLUTE 0.17 (*) SMEAR REVIEWED: NA - Not Applicable COMPREHENSIVE METABOLIC PANEL - Abnormal SODIUM 137 POTASSIUM 4.7 CHLORIDE 101 CO2 21 (*) CALCIUM 9.8 BUN 16 CREATININE 0.53 GLUCOSE 468 (*) TOTAL PROTEIN 7.0 ALBUMIN 3.8 BILIRUBIN TOTAL 0.2 ALKALINE PHOSPHATASE 159 (*) AST 33 ALT 33 GFR >60 ANION GAP 15 BRAIN NATRIURETIC PEPTIDE, BNP OR PROBNP - Abnormal PROBNP, N TERMINAL 703 (*) BLOOD GAS VENOUS - Abnormal PH BLOOD POC 7.35 PCO2 POC 37 (*) PO2 POC 56 (*) HCO3 (CALC) POC 20 (*) HEMOGLOBIN POC 11.7 (*) BASE EXCESS POC -5 (*) O2 SATURATION POC 88 (*) SODIUM POC 134 (*) POTASSIUM POC 4.8 HEMATOCRIT POC 35 (*) PH TEMP CORRECT 7.35 PCO2 TEMP CORRECT 37 (*) PO2 TEMP CORRECT 56 (*) SPECIMEN SOURCE, GASES POC Venous CRITICALTO POC PLATE NAME POC [id number] RESULTS POC Y TIME POC 744 CALCIUM IONIZED POC 5.1 TCO2 (CALC) POC 22 [facility] SITE POC No Charge PATIENT'S TEMPERATURE POC 37.0 TROPONIN BASELINE, 5TH GEN - Abnormal TROPONIN T, BASELINE 5TH GEN 14 (*) LACTIC ACID - Abnormal LACTIC ACID 4.6 (*) POC LACTIC ACID - Abnormal LACTIC ACID POC 5.3 (*) SPECIMEN SOURCE, GASES POC Venous CRITICALTO POC PLATE NAME POC [id number] RESULTS POC Y TIME POC 744 [facility] SITE POC No Charge PROTIME-INR - Normal PROTIME 13.5 INR 1.0 TROPONIN 2 HR, 5TH GEN Radiology XR CHEST PA OR AP 1 VW ED Interpretation No pneumothorax, pneumonia, or large amount of vascular congestion noted. Radiology report pending. ED Physician EKG Interpretation Time Performed: 6:45 AM Time Interpreted: 6:46 AM Normal sinus rhythm, no ST segment change consistent with STEMI, poor quality EKG, rate 99, normal QTc interval. CLINICAL COURSE ED Course as of 01/04/25 1021 Wed Jan 04, 2025 0914 ANION GAP: 15 [RP] 0918 Lactic acid elevated, I do not currently have concern for pneumonia. Suspect that this is a type B lactic acidosis. [RP] 0956 TROPONIN T, BASELINE 5TH GEN(!): 14 Troponin noted to be stable from baseline. [RP] ED Course User Index [RP] Heike Camarillo MD Medications Administered During the ED Stay from 01/04/2025 0634 to 01/04/2025 1021 Date/Time Order Dose Route Action 01/04/2025 0738 CDT fentaNYL (PF) (SUBLIMAZE) 50 mcg/mL injection 50 mcg 50 mcg IV Given 01/04/2025 1017 CDT HYDROcodone-acetaminophen (NORCO) 5-325 mg per tablet 1 Tablet 1 Tablet Oral Given . New Prescriptions for this Encounter Procedures MEDICAL DECISION MAKING 59-year-old female with history of coronary disease, CHF, COPD, type 2 diabetes, obesity, recent admission for COPD exacerbation presents the emergency department with dyspnea. She is tachypneic, though otherwise hemodynamically stable on her home 4 L/min of supplemental oxygen. Due to her mild respiratory distress, BiPAP was requested and respiratory therapist did place her on BiPAP. She has no evidence of respiratory acidosis. Cardiac BNP mildly elevated, though this may be falsely low due tothe patient's obesity. Lab work otherwise reveals an elevated lactic acid level, thought to be a type B lactic acidosis as the patient does not actually have an anion gap acidosis. EKG independently reviewed without evidence of ischemia or dysrhythmia. Chest x-ray independently reviewed without evidence of pneumothorax or obvious pneumonia. CTA initially considered, though she has had 4 CTAs within the last 2 months that did not reveal any pulmonary emboli. Will likely plan for admission due tothe patient's respiratory distress on initial arrival, which I think is possibly secondary to her CHF versus COPD though anxiety may be playing a role. Discussed the case with Dr. Borges who agreesto admit the patient for further care. Medical Decision Making Problems Addressed: Atherosclerosis of [place] coronary artery of [place] heart without angina pectoris: chronic illness or injury Chronic pain syndrome: chronic illness or injury HEENA (generalized anxiety disorder): chronic illness or injury with severe exacerbation, progression, or side effects of treatment Respiratory distress: chronic illness or injury with exacerbation, progression, or side effects of treatment Amount and/or Complexity of Data Reviewed Labs: ordered. Decision-making details documented in ED Course. Radiology: ordered and independent interpretation performed. ECG/medicine tests: ordered and independent interpretation performed. Risk Prescription drug management. Parenteral controlled substances. Decision regarding hospitalization. Clinical Scoring & Consults Clinical Impression Final diagnoses: [R06.03] Respiratory distress (Primary) [I25.10] Atherosclerosis of [place] coronary artery of [place] heart without angina pectoris [G89.4] Chronic pain syndrome [F41.1] HEENA (generalized anxiety disorder) --- Heike Camarillo MD 01/04/2025 10:21 AM ATTESTATION Portions of this documentation may have been created by an artificial mesh cutter software. Effort has been made to assure accuracy of mesh cutter. Any obvious errors or omissions should be clarified with the author of the document. documented in this encounter Miscellaneous Notes * Care Plan - Megan Perez GN - 01/06/2025 6:11 AM CDT Shift Summary Nebulizer treatment with ipratropium-albuterol was administered after initial refusal, and oxygen therapy was maintained at 4 L/min via nasal cannula throughout the shift. Two doses of insulin lispro were given in response to elevated blood glucose, and potassium chloride was administered for hypokalemia identified on the basic metabolic panel. Morphine was administered twice for pain management as needed during the shift. Safety checks and high fall risk interventions were consistently completed, with no confusion or delirium noted and no additional individualized interventions required. Overall, respiratory and cardiovascular support were maintained, and cognitive status remained stable during the shift. Safety/Fall: Absence of fall, injury, harm during hospitalization: High fall risk interventions were consistently completed and safety checks were performed throughout the shift, with no confusion ordelirium documented and no additional individualized interventions needed. Achieve optimal respiratory function by discharge and/or maintain baseline function: Oxygen therapywas maintained at 4 L/min via nasal cannula, and a nebulizer treatment with ipratropium-albuterol was administered after a previous refusal; breath sounds fluctuated between crackles and expiratory wheezes, and SpO2 remained stable in the mid-90s with mild respiratory effort noted. Achieve optimal cardiovascular function by discharge or maintain baseline function: Blood pressure and heart rate remained elevated with persistent tachycardia, and labs revealed elevated troponin, high lactic acid, and abnormal basic metabolic panel values; potassium chloride and insulin lispro were administered in response to lab findings. Achieve optimal cognitive/perceptual/neurological function by discharge or maintain baseline function: Level of consciousness, GCS, and cognitive assessments remained stable and within normal limits throughout the shift, with no delirium or confusion documented. * Care Plan - Annemarie Orellana RN - 01/05/2025 5:55 PM CDT Shift Summary Pain in the chest region decreased during the shift following administration of ibuprofen, HYDROcodone-acetaminophen, and morphine, with pain ultimately denied by afternoon. Nebulizer treatments were refused twice, and supplemental oxygen was maintained via nasal cannula throughout the shift. Blood pressure and heart rate fluctuated, with periods of elevated readings and sinus tachycardia documented on EKG. Urinary output was monitored, with large amounts and some incontinence noted, but urine characteristics remained stable. Overall, peripheral neurovascular, cognitive, and genitourinary status remained stable compared to baseline, with ongoing monitoring and interventions as per care plans. Achieve optimal peripheral neurovascular function by discharge or maintain baseline function: Peripheral neurovascular status remained unchanged throughout the shift, with mild right foot edema persisting and capillary refill consistently within normal limits; extremities were protected from injuryas per care plan. Achieve optimal respiratory function by discharge and/or maintain baseline function: Respiratory function was supported with supplemental oxygen via nasal cannula at a steady flow rate, breath soundsremained diminished with crackles, and SpO2 values fluctuated but generally improved after morning readings; nebulizer treatments were refused during the shift. Achieve optimal cardiovascular function by discharge or maintain baseline function: Blood pressure and heart rate varied throughout the shift, with periods of elevated readings and sinus tachycardia noted on EKG; cardiac and blood pressure monitoring continued as per care plan. Achieve optimal cognitive/perceptual/neurological function by discharge or maintain baseline function: Cognitive and neurological assessments remained within defined limits, with no disorientation ordelirium present and GCS scores stable at 15 throughout the shift. Achieve optimal genitourinary and renal function by discharge or maintain baseline function: Urinary output was monitored with a device in place, urine remained clear and yellow, and large amounts ofurine were noted with some incontinence; genitourinary status was unchanged from baseline. * Care Plan - Angella Saldaña RN - 01/05/2025 10:56 AM CDT Problem: Discharge Planning Goal: Identify discharge needs upon admission and through discharge Description: Outcome: Progressing [employer] Supervisor Discharge Planning Expected Discharge Date Jan 07, 2025 Plan Discharge To: Home with family assist (01/04/251434) Plan Discharge To - Alternate: Home or Self Care (01/04/251434) Family/Caregiver Assist Does the patient have family and/or a caregiver that is willing, able and available to assist if needed?: Yes (01/04/251434) Name and Relation: Rosalia, parents (01/04/251434) Referrals Status: Patient to transfer to medical floor today. Patient continues to require 4L of supplemental oxygen via [place]. CM to follow for discharge needs. Preferred Pharmacy: [id number] [address] [facility] Patient / Family Communications Resources Provided Transportation Plan Follow Up Appointments Scheduled Angella Saldaña RN * Care Plan - Arlette Fowler RCP - 01/05/2025 10:04 AM CDT Images from the original note were not included. Daily Respiratory Reassessment Note Le Claudiokins 59 y.o. female [id number] Daily respiratory reassessment of ordered therapy was performed. Based upon the finding documented on Doc Flowsheet, therapy ordered will continue the same- q 6 hrsduoneb neb per pt's request, re-assess daily/prn. Arlette Fowler RCP * Care Plan - Angella Saldaña RN - 01/04/2025 2:36 PM CDT Care Management Initial Assessment Initial Discharge Planning Assessment completed. Discussed Care Management's role and Discharge planning. Plan Discharge To: Home with family assist Plan Discharge To - Alternate: Home or Self Care Does the patient have family and/or a caregiver that is willing, able and available to assist if needed? Yes - Name/Relation:mother Rivas/ Marcin, stepfather Comments: Chart review conducted. Patient was recent readmission that was discharged home. Patient's insurance coverage does not cover HHC/SNF rehab placement. Patient Discharge Planning Goal: Home Patient will potentially discharge to a SNF/NH? No Prior to admission, patient resides at: own home. Patient resides in a one story home with six stairs to enter. Prior to admission, living arrangements: lives alone. Prior to admission, patient's functional level:requires assistance; uses wheeled walker and electric scooter for mobility; needs assistance with iADLs: transportation, shopping, and running errands Community Ambulator: yes Prior to admission, the patient has the following DME? Yes wheeled walker and other electric scooter Emergency contact(s): Extended Emergency Contact Information Primary Emergency Contact: SYLVIEIVANAEVELYN Smith Mobile Relation: Mother Secondary Emergency Contact: Marcin Encinas Mobile Relation: Step Father Coil Binder needed? No Prescription coverage: yes Preferred Pharmacy verified: [facility] #[id number] - [address] Insurance coverage verified: Payor: MEDICAID / Plan: [place]ID [place] / Product Type: Medicaid / Secondary Insurance:N/A Medicaid Status: no spend down Has VA Benefits: no Employment Status: not employed PCP verified as: Delta Wade MD Patient has had a stay at an acute care hospital in the last 30 days. Recent Falls?: Last Known Fall: No falls Plan for transportation at discharge: family vs van Care Management contact information provided. Care Management will continue to follow and assist asneeded. * Gen AI ED Handoff - GENERATIVE AI HANDOFF NOTE - 01/04/2025 1:09 PM CDT SITUATION: Patient ( ) is a 59-year-old female who has been in the ER for 6 hours. She came to the ER due to shortness of breath. The patient's most recent care team on record included: Diana Moreno. BACKGROUND: This patient has allergies to Ketorolac Tromethamine, Prochlorperazine, Propoxyphene, Tramadol, Codeine, Propoxyphene N-acetaminophen. ASSESSMENT: Patient's most recent vitals recorded in flowsheets were as follows: BP: 135/69 T: 97.5 F RR: 25 SPO2: 98% HR: 101 WT: 212.0 LBS BMI: 36.39 Most recent Glucose Value: 301. Completed: 2025-01-04 12:48. Last recorded oxygen source was nasal cannula. Prev 45 Day Discharges: 8. Readmission detail: 2025-01-03 EMERGENCY COPD with exacerbation ([facility]);2024-12-28 INPATIENT Respiratory distress;2024-12-23 EMERGENCY;2024-12-17 OBSERVATION COPD with exacerbation ([facility]);2024-12-09 INPATIENT COPD exacerbation ([facility]);2024-11-28 INPATIENT COPD exacerbation ([facility]);2024-11-27 EMERGENCY Dyspnea, unspecified type;2024-11-21 INPATIENT Centrilobular emphysema. The patient, Le Diaz, presents with acute on chronic hypoxic respiratory failure secondary to acute on chronic CHF exacerbation. She has a history of COPD/asthma, prior pulmonary emboli, heart failure, CAD, paroxysmal A-fib, bipolar disorder, anxiety, type 2 diabetes, and chronic anticoagulation. Notable lab abnormalities include elevated glucose of 468 and lactic acid of 4.6. The patient is morbidly obese, which complicates care, and has a history of difficult intravenous access. She is on home oxygen therapy and has been using BiPAP for respiratory distress. RECOMMENDATION: Admit to hospitalist service with telemetry monitoring. Start IV Lasix 80 mg twice daily and hold home Jardiance and oral Lasix. Order a low-sodium fluid control diet and strict intake and output measurements. Continue Entresto and metoprolol. Monitor troponin levels and plan for a stress test if there is a bump in troponin. Resume Lantus 45 units twice daily and Humalog 15 with meal coverage, with a medium dose insulin sliding scale and diabetic diet. Resume warfarin with daily INR monitoring. Continue Zoloft and Zyprexa for bipolar disorder and anxiety. Resume home [place] for chronic pain syndrome and statin for hyperlipidemia. Address morbid obesity with outpatient follow-up for weight loss needs. Ensure DVT prophylaxis with warfarin. Maintain current diet with sodium control and fluid restriction. Monitor for signs of infection and repeat lactic acid level. A midline catheter has been placed for IV access. The patient is on a full code status. *This summary was created by neal HOANG. The responses are meant to enhance, not replace normal workflow. Please contact the ED nurse for any additional information.* * Care Plan - Tasha Glynn RN - 01/04/2025 8:38 AM CDT Le 's midline IV will remain free from infection. * ED Bed Hold Comment Note - Ghanshyam Floyd RN - 01/04/2025 6:42 AM CDT Bed: 03 Expected date: 01/04/25 Expected time: 6:24 AM Means of arrival: Comments: Triage documented in this encounter Plan of Treatment Upcoming Encounters Date Type Department Care Team (Latest Contact Info) Description 01/12/2025 1:40 PM CDT Office Visit [facility] [address] [facility] [address] [place] [phone] Tresa Stockton, [facility] [address] [facility] [address] [place] [phone] 01/25/2025 12:00 PM ADMINISTRATIVE SERVICES MANAGER Hospital Encounter [facility] [address] [place] [address] Kumar Ochoa MD [address] [phone] Combined forms of age-related cataract of right eye 01/25/2025 1:00 PM ADMINISTRATIVE SERVICES MANAGER - 01/25/2025 2:13 PM ADMINISTRATIVE SERVICES MANAGER Surgery [facility] [address] [facility] [address] [place] [address] Kumar Ochoa MD [address] [phone] CATARACT EXTRACTION IOL INSERTION FEMTO LASER ASSISTED LEVEL 1 01/26/2025 8:30 AM ADMINISTRATIVE SERVICES MANAGER Office Visit [facility] [place] [address] [phone] Eduardo Craven MD [address] [place] [phone] 02/01/2025 9:00 AM ADMINISTRATIVE SERVICES MANAGER Office Visit [facility] [place] [address] [phone] Paul Bustillos, OD [address] [place] [phone] 02/14/2025 3:00 PM ADMINISTRATIVE SERVICES MANAGER Office Visit [facility] [address] [place] [phone] Angeli Miles MD [address] [place] [phone] Scheduled Orders Name Type Priority Associated Diagnoses Orde r Schedule CBC WITH DIFFERENTIAL Lab Routine Abdominal pain, acute, right upper quadrant Expected: 01/13/2025, Expires: 01/06/2026 BASIC METABOLIC PANEL Lab Routine Abdominal pain, acute, right upper quadrant Expected: 01/13/2025, Expires: 01/06/2026 Scheduled Procedures Name Priority Associated Diagnoses Date/Ti me CATARACT EXTRACTION IOL INSERTION FEMTO LASER ASSISTED LEVEL 1 Combined forms of age-related cataract of right eye Right retinal detachment 01/25/2025 1:00 PM ADMINISTRATIVE SERVICES MANAGER PARS PLANA VITRECTOMY WITH LASER Combined forms of age-related cataract of right eye Right retinal detachment 01/25/2025 1:00 PM ADMINISTRATIVE SERVICES MANAGER EYE PLACEMENT OF SILICONE OIL Combined forms of age-related cataract of right eye Right retinal detachment 01/25/2025 1:00 PM ADMINISTRATIVE SERVICES MANAGER documented as of this encounter Goals Goal Patient Goal Type Associated Problems Recent Progress Patient-Stated? Author Heart Failure Goal Care Plan Heart Failure Problem No Latonya Anguiano LPN Autogenerated Goal Care Plan Autogenerated Problem No Windy Dubois documented as of this encounter Procedures Procedure Name Priority Date/Time Associated Diagnosis Comments POC GLUCOSE Routine 01/06/2025 11:42 AM CDT NM MYOCARD PERF IMAG SPECT MULT Routine 01/06/2025 9:24 AM CDT NM PHARMACOLOGICAL STRESS TEST Routine 01/06/2025 8:18 AM CDT HOME O2 EVAL (DESATURATION SCREEN) Pending Discharge 01/06/2025 7:00 AM CDT POC GLUCOSE Routine 01/06/2025 6:20 AM CDT LACTIC ACID Routine 01/06/2025 1:54 AM CDT PROTIME-INR Routine 01/06/2025 1:54 AM CDT CBC WITHOUT DIFFERENTIAL Routine 01/06/2025 1:54 AM CDT BASIC METABOLIC PANEL Routine 01/06/2025 1:54 AM CDT TROPONIN 6 HR, 5TH GEN Timed Study 6:12 PM CDT POC GLUCOSE Routine 01/05/2025 4:38 PM CDT TROPONIN BASELINE, 5TH GEN Stat 01/05/2025 2:50 PM CDT D-DIMER Stat 01/05/2025 2:50 PM CDT EKG 12-LEAD Stat 01/05/2025 12:18 PM CDT POC GLUCOSE Routine 01/05/2025 11:46 AM CDT POC GLUCOSE Routine 01/05/2025 7:19 AM CDT CBC WITH DIFFERENTIAL Routine 01/05/2025 4:36 AM CDT PROTIME-INR Routine 01/05/2025 4:36 AM CDT MAGNESIUM LEVEL Routine 01/05/2025 4:36 AM CDT BASIC METABOLIC PANEL Routine 01/05/2025 4:36 AM CDT LACTIC ACID Routine 01/05/2025 4:35 AM CDT POC GLUCOSE Routine 01/04/2025 8:14 PM CDT EKG 12-LEAD Stat 01/04/2025 8:11 PM CDT POC GLUCOSE Routine 01/04/2025 4:55 PM CDT POC GLUCOSE Routine 01/04/2025 3:00 PM CDT TROPONIN 6 HR, 5TH GEN Timed Study 2:15 PM CDT LACTIC ACID Stat 01/04/2025 2:15 PM CDT POC GLUCOSE Stat 01/04/2025 12:40 PM CDT TROPONIN 2 HR, 5TH GEN Timed Study 10:52 AM CDT TROPONIN BASELINE, 5TH GEN Stat 01/04/2025 8:59 AM CDT INSERT PERIPHERAL IV Stat 01/04/2025 8:35 AM CDT LACTIC ACID Stat 01/04/2025 8:24 AM CDT PROTIME-INR Stat 01/04/2025 8:24 AM CDT COMPREHENSIVE METABOLIC PANEL Stat 01/04/2025 8:24 AM CDT POC LACTIC ACID Stat 01/04/2025 7:43 AM CDT BLOOD GAS VENOUS Stat 01/04/2025 7:43 AM CDT CBC WITH DIFFERENTIAL Stat 01/04/2025 7:39 AM CDT XR CHEST PA OR AP 1 VW Stat 7:23 AM CDT BRAIN NATRIURETIC PEPTIDE, BNP OR PROBNP Stat 01/04/2025 7:12 AM CDT RT ASSESS AND TREAT Stat 01/04/2025 6 :59 AM CDT EKG 12-LEAD Stat 01/04/2025 6:45 AM CDT documented in this encounter Results * (ABNORMAL) POC GLUCOSE (01/06/2025 11:42 AM CDT) GLUCOSE POC 328(H) 74 - 99 mg/dL 01/06/2025 11:42 AM CDT [facility] SPECIMEN SOURCE, GLUCOSE POC Capillary 01/06/2025 11:42 AM CDT [facility] Blood, whole 01/06/2025 11:4 2 AM CDT 01/06/2025 12:17 PM CDT Shailesh Elaine MD POINT OF CARE TESTING Final Re sult [facility] # [id number] [address] [address] [place] [address] * (ABNORMAL) NM MYOCARD PERF IMAG SPECT MULT (01/06/2025 9:24 AM CDT) EJECTION FRACTION 46(A) 50 - 65 % INTERFACE SYSTEM 01/06/2025 9:27 AM CDT Impressions INTERFACE SYSTEM - 01/06/2025 9:42 AM CDT Impression: 1. Moderate sized and intensity, mostly fixed inferior and inferolateral defect with minimal reversibility, consistent with injury and very mild pedro-infarction ischemia in the RCA distribution.. 2. Mild left ventricular systolic dysfunction, with LVEF 46%. 3. Cardiac PET from September 2024 showed similar perfusion defect with LVEF 35-39%. Lm Zimmerman MD, [facility] Narrative INTERFACE SYSTEM - 01/06/2025 9:42 AM CDT Rest/Stress One-day SPECT Myocardial Perfusion Imaging with Pharmacologic Stress Clinical Indication and History: Chest pain. Atrial fibrillation, CAD with history of PCI, CHF and cardiomyopathy, hypertension, diabetes, hyperlipidemia, former smoker with COPD. Procedure: Patient is 64 inches tall and weighs 220 lb. Rest Tc99m dose was injected 10-20 seconds after the saline flush. Myocardial perfusion imaging was performed at rest in upright position (30 minutes following the intravenous injection of 10.5 mCi of Tc99m Tetrofosmin). Pharmacologic stress testing was performed with Regadenoson 0.4 mg injected intravenously over 10 seconds. The patient reported no symptoms during stress test. At peak pharmacologic effect, the patient was intravenously injected with 31.5 mCi of Tc99m Tetrofosmin. Gated post-stress tomographic imaging was performed 45 minutes after stress in upright position, followed by supine perfusion imaging. Anterior planar and gated cardiac SPECT views were obtained and data reconstructed in the short, horizontal long and vertical long axis views. All imaging was performed on [employer] and data analyzed using [employer]. The resting heart rate was 96 beats per minute and peak heart rate during stress was 119 beats per minute. Blood pressure was 125/74 mmHg at rest and 131/79 mm Hg at peak stress. Blood pressure response was appropriate during the stress procedure. The resting electrocardiogram demonstrated atrial rhythm with PVC, possible old inferior IN, mild nonspecific ST-segment changes. During stress, no significant ST-T changes were noted. There was evidence of no significant new arrhythmias. Findings: The overall quality of the study is fair. There is evidence of mild to moderate soft tissue attenuation artifact. Left ventricular cavity is noted to be normal in size on the rest images without further dilatation on post stress images. SPECT images demonstrate moderate sized, moderate to severe intensity mostly fixed inferior and inferolateral defect with minimal reversibility. No other significant reversible defect is identified by visual or computer-assisted quantitative analysis. Gated SPECT imaging reveals global hypokinesis, possibly worse inferiorly and inferolaterally. The left ventricular ejection fraction was calculated to be 46%, with an end-diastolic volume of 135 ml. In summary, the clinical, electrocardiographic and scintigraphic findings in this 59 years patient being evaluated for ischemia using regadenoson are as follows: Clinical response: Non-diagnostic (regadenoson). Electrocardiographic response: Non-ischemic Procedure Note Lm Zimmerman MD - 01/06/2025 Rest/Stress One-day SPECT Myocardial Perfusion Imaging with Pharmacologic Stress Clinical Indication and History: Chest pain. Atrial fibrillation, CAD with history of PCI, CHF and cardiomyopathy, hypertension, diabetes, hyperlipidemia, former smoker with COPD. Procedure: Patient is 64 inches tall and weighs 220 lb. Rest Tc99m dose was injected 10-20 seconds after the saline flush. Myocardial perfusion imaging was performed at rest in upright position (30 minutes following the intravenous injection of 10.5 mCi of Tc99m Tetrofosmin). Pharmacologic stress testing was performed with Regadenoson 0.4 mg injected intravenously over 10 seconds. The patient reported no symptoms during stress test. At peak pharmacologic effect, the patient was intravenously injected with 31.5 mCi of Tc99m Tetrofosmin. Gated post-stress tomographic imaging was performed 45 minutes after stress in upright position, followed by supine perfusion imaging. Anterior planar and gated cardiac SPECT views were obtained and data reconstructed in the short, horizontal long and vertical long axis views. All imaging was performed on [employer] and data analyzed using [employer]. The resting heart rate was 96 beats per minute and peak heart rate during stress was 119 beats per minute. Blood pressure was 125/74 mmHg at rest and 131/79 mm Hg at peak stress. Blood pressure response was appropriate during the stress procedure. The resting electrocardiogram demonstrated atrial rhythm with PVC, possible old inferior IN, mild nonspecific ST-segment changes. During stress, no significant ST-T changes were noted. There was evidence of no significant new arrhythmias. Findings: The overall quality of the study is fair. There is evidence of mild to moderate soft tissue attenuation artifact. Left ventricular cavity is noted to be normal in size on the rest images without further dilatation on post stress images. SPECT images demonstrate moderate sized, moderate to severe intensity mostly fixed inferior and inferolateral defect with minimal reversibility. No other significant reversible defect is identified by visual or computer-assisted quantitative analysis. Gated SPECT imaging reveals global hypokinesis, possibly worse inferiorly and inferolaterally. The left ventricular ejection fraction was calculated to be 46%, with an end-diastolic volume of 135 ml. In summary, the clinical, electrocardiographic and scintigraphic findings in this 59 years patient being evaluated for ischemia using regadenoson are as follows: Clinical response: Non-diagnostic (regadenoson). Electrocardiographic response: Non-ischemic Impression: 1. Moderate sized and intensity, mostly fixed inferior and inferolateral defect with minimal reversibility, consistent with injury and very mild pedro-infarction ischemia in the RCA distribution.. 2. Mild left ventricular systolic dysfunction, with LVEF 46%. 3. Cardiac PET from September 2024 showed similar perfusion defect with LVEF 35-39%. Lm Zimmerman MD, FACC, FASNC us Shailesh WRIGHT ORDERABLES Final Result INTERFACE SYSTEM Refer to clinic/hospital department * (ABNORMAL) NM PHARMACOLOGICAL STRESS TEST (01/06/2025 8:18 AM CDT) 01/06/2025 8:20 AM CDT Impressions INTERFACE SYSTEM - 01/06/2025 9:42 AM CDT Impression: 1. Moderate sized and intensity, mostly fixed inferior and inferolateral defect with minimal reversibility, consistent with injury and very mild pedro-infarction ischemia in the RCA distribution.. 2. Mild left ventricular systolic dysfunction, with LVEF 46%. 3. Cardiac PET from September 2024 showed similar perfusion defect with LVEF 35-39%. Lm Zimmerman MD, [facility], [facility] INTERFACE SYSTEM - 01/06/2025 9:42 AM CDT Rest/Stress One-day SPECT Myocardial Perfusion Imaging with Pharmacologic Stress Clinical Indication and History: Chest pain. Atrial fibrillation, CAD with history of PCI, CHF and cardiomyopathy, hypertension, diabetes, hyperlipidemia, former smoker with COPD. Procedure: Patient is 64 inches tall and weighs 220 lb. Rest Tc99m dose was injected 10-20 seconds after the saline flush. Myocardial perfusion imaging was performed at rest in upright position (30 minutes following the intravenous injection of 10.5 mCi of Tc99m Tetrofosmin). Pharmacologic stress testing was performed with Regadenoson 0.4 mg injected intravenously over 10 seconds. The patient reported no symptoms during stress test. At peak pharmacologic effect, the patient was intravenously injected with 31.5 mCi of Tc99m Tetrofosmin. Gated post-stress tomographic imaging was performed 45 minutes after stress in upright position, followed by supine perfusion imaging. Anterior planar and gated cardiac SPECT views were obtained and data reconstructed in the short, horizontal long and vertical long axis views. All imaging was performed on [employer] and data analyzed using [employer]. The resting heart rate was 96 beats per minute and peak heart rate during stress was 119 beats per minute. Blood pressure was 125/74 mmHg at rest and 131/79 mm Hg at peak stress. Blood pressure response was appropriate during the stress procedure. The resting electrocardiogram demonstrated atrial rhythm with PVC, possible old inferior IN, mild nonspecific ST-segment changes. During stress, no significant ST-T changes were noted. There was evidence of no significant new arrhythmias. Findings: The overall quality of the study is fair. There is evidence of mild to moderate soft tissue attenuation artifact. Left ventricular cavity is noted to be normal in size on the rest images without further dilatation on post stress images. SPECT images demonstrate moderate sized, moderate to severe intensity mostly fixed inferior and inferolateral defect with minimal reversibility. No other significant reversible defect is identified by visual or computer-assisted quantitative analysis. Gated SPECT imaging reveals global hypokinesis, possibly worse inferiorly and inferolaterally. The left ventricular ejection fraction was calculated to be 46%, with an end-diastolic volume of 135 ml. In summary, the clinical, electrocardiographic and scintigraphic findings in this 59 years patient being evaluated for ischemia using regadenoson are as follows: Clinical response: Non-diagnostic (regadenoson). Electrocardiographic response: Non-ischemic Procedure Note Lm Zimmerman MD - 01/06/2025 Rest/Stress One-day SPECT Myocardial Perfusion Imaging with Pharmacologic Stress Clinical Indication and History: Chest pain. Atrial fibrillation, CAD with history of PCI, CHF and cardiomyopathy, hypertension, diabetes, hyperlipidemia, former smoker with COPD. Procedure: Patient is 64 inches tall and weighs 220 lb. Rest Tc99m dose was injected 10-20 seconds after the saline flush. Myocardial perfusion imaging was performed at rest in upright position (30 minutes following the intravenous injection of 10.5 mCi of Tc99m Tetrofosmin). Pharmacologic stress testing was performed with Regadenoson 0.4 mg injected intravenously over 10 seconds. The patient reported no symptoms during stress test. At peak pharmacologic effect, the patient was intravenously injected with 31.5 mCi of Tc99m Tetrofosmin. Gated post-stress tomographic imaging was performed 45 minutes after stress in upright position, followed by supine perfusion imaging. Anterior planar and gated cardiac SPECT views were obtained and data reconstructed in the short, horizontal long and vertical long axis views. All imaging was performed on [employer] and data analyzed using [employer]. The resting heart rate was 96 beats per minute and peak heart rate during stress was 119 beats per minute. Blood pressure was 125/74 mmHg at rest and 131/79 mm Hg at peak stress. Blood pressure response was appropriate during the stress procedure. The resting electrocardiogram demonstrated atrial rhythm with PVC, possible old inferior IN, mild nonspecific ST-segment changes. During stress, no significant ST-T changes were noted. There was evidence of no significant new arrhythmias. Findings: The overall quality of the study is fair. There is evidence of mild to moderate soft tissue attenuation artifact. Left ventricular cavity is noted to be normal in size on the rest images without further dilatation on post stress images. SPECT images demonstrate moderate sized, moderate to severe intensity mostly fixed inferior and inferolateral defect with minimal reversibility. No other significant reversible defect is identified by visual or computer-assisted quantitative analysis. Gated SPECT imaging reveals global hypokinesis, possibly worse inferiorly and inferolaterally. The left ventricular ejection fraction was calculated to be 46%, with an end-diastolic volume of 135 ml. In summary, the clinical, electrocardiographic and scintigraphic findings in this 59 years patient being evaluated for ischemia using regadenoson are as follows: Clinical response: Non-diagnostic (regadenoson). Electrocardiographic response: Non-ischemic Impression: 1. Moderate sized and intensity, mostly fixed inferior and inferolateral defect with minimal reversibility, consistent with injury and very mild pedro-infarction ischemia in the RCA distribution.. 2. Mild left ventricular systolic dysfunction, with LVEF 46%. 3. Cardiac PET from September 2024 showed similar perfusion defect with LVEF 35-39%. Lm Zimmerman MD, FAC, [facility] Shailesh Elaine MD NM ORDERABLES Final Result INTERFACE SYSTEM Refer to clinic/hospital department * (ABNORMAL) POC GLUCOSE (01/06/2025 6:20 AM CDT) GLUCOSE POC 176(H) 74 - 99 mg/dL 01/06/2025 6:20 AM CDT [facility] SPECIMEN SOURCE, GLUCOSE POC Capillary 01/06/2025 6:20 AM CDT [facility] Blood, whole 01/06/2025 6:20 AM CDT 01/06/2025 6:28 AM CDT Shailesh Elaine MD POINT OF CARE TESTING Final Re sult Performing Organization Address City/[facility]/ZIP Co de Phone Number [facility] CLIA # [id number] [address] [facility] [place] [address] * (ABNORMAL) PROTIME-INR (01/06/2025 1:54 AM CDT) Pathologist [facility] PROTIME 20.4(H) 12.7 - 14.9 Seconds 01/06/2025 2:13 AM CDT [facility] INR 1.7(H) 0.8 - 1.2 01/06/2025 2:13 AM CDT [facility] Blood Venipuncture / Unknown 01/06/2025 1:54 AM CDT 01/06/2025 1:58 AM CDT [facility] - 01/06/2025 2:13 AM CDT Expected Values for INR: DVT/PE Goal INR 2.5; range 2.0 - 3.0 Valve Replacement Tissue Goal INR 2.5; range 2.0 - 3.0 Valve Replacement Mechanical Goal INR 3.0; range 2.5 - 3.5 POST-IN Goal INR 2.5; range 2.0 - 3.0 or Goal INR 3.0; range 2.5 - 3.5 Atrial Fibrillation Goal INR 2.5; range 2.0 - 3.0 Ischemic Stroke Goal INR 2.5; range 2.0 - 3.0 us Nani Borges MD HEMATOLOGY ORDERABLES Fi nal Result [facility] CLIA # [id number] [facility] [address] [place] [address] * (ABNORMAL) BASIC METABOLIC PANEL (01/06/2025 1:54 AM CDT) SODIUM 140 136 - 145 mmol/L 01/06/2025 2:29 AM CDT [facility] POTASSIUM 3.0(L) 3.5 - 5.1 mmol/L 01/06/2025 2:29 AM CDT [facility] CHLORIDE 101 98 - 107 mmol/L 01/06/2025 2:29 AM CDT [facility] CO2 27 22 - 29 mmol/L 01/06/2025 2:29 AM CDT [facility] CALCIUM 8.9 8.6 - 10.0 mg/dL 01/06/2025 2:29 AM CDT [facility] BUN 22(H) 6 - 20 mg/dL 01/06/2025 2:29 AM CDT [facility] CREATININE 0.58 0.51 - 0.95 mg/dL 01/06/2025 2:29 AM CDT [facility] GLUCOSE 348(H) 74 - 99 mg/dL 01/06/2025 2:29 AM CDT [facility] GFR >60 >=60 mL/min/1.7 3 sq meter 01/06/2025 2:29 AM CDT [facility] Comment:eGFR calculated with 2020 CKD-EPI equation. Vegetarian diet, extremely high or low muscle mass, and may affect results. Cystatin C with Glomerular Filtration Rate is a suitable alternative for these patients. ANION GAP 12 9 - 20 mmol/L 01/06/2025 2:29 AM CDT [facility] Blood Venipuncture / Unknown 01/06/2025 1:54 AM CDT 01/06/2025 1:58 AM CDT us Nani Borges MD CHEMISTRY ORDERABLES Fin al Result Performing Organization Address City/[facility]/ZIP Co de Phone Number [facility] CLIA # [id number] [address] [place] [address] [place] [address] * (ABNORMAL) LACTIC ACID (01/06/2025 1:54 AM CDT) LACTIC ACID 2.2(H) <=2.0 mmol/L 01/06/2025 2:24 AM CDT [facility] Blood Venipuncture / Unknown 01/06/2025 1:54 AM CDT 01/06/2025 2:00 AM CDT us Shailesh Elaine MD CHEMISTRY ORDERABLES Final Res ult [facility] CLIA # [id number] [address] [address] [place] [address] * (ABNORMAL) CBC WITHOUT DIFFERENTIAL (01/06/2025 1:54 AM CDT) [facility] WBC 7.0 4.8 - 10.8 K/uL 01/06/2025 2:07 AM CDT [facility] NRBCS 2(H) <1 % 01/06/2025 2:07 AM CDT [facility] RBC 3.67(L) 4.20 - 5.40 M/uL 01/06/2025 2:07 AM CDT [facility] HEMOGLOBIN 10.7(L) 12.0 - 16.0 g/dL 01/06/2025 2:07 AM T [facility] HEMATOCRIT 34.8(L) 36.0 - 46.0 % 01/06/2025 2:07 AM CDT [facility] MCV 94.8 84.0 - 103.0 fL 01/06/2025 2:07 AM CDT [facility] MCH 29.2 27.0 - 34.0 pg 01/06/2025 2:07 AM CDT [facility] MCHC 30.7 30.0 - 35.0 g/dL 01/06/2025 2:07 AM CDT [facility] PLATELETS 172 140 - 440 K/uL 01/06/2025 2:07 AM CDT [facility] MPV 11.0 8.9 - 12.8 fL 01/06/2025 2:07 [facility] RDW 18.8(H) 11.0 - 14.5 % 01/06/2025 2:07 AM T [facility] RDW-STDEV 66.2(H) 37.0 - 54.0 fL 01/06/2025 2:07 AM T [facility] Blood Venipuncture / Unknown 01/06/2025 1:54 AM CDT 01/06/2025 1:58 AM CDT Shailesh Elaine MD HEMATOLOGY ORDERABLES Final Re sult Performing Organization Address [facility]/ZIP Co de Phone Number [facility] CLIA # [id number] [address] [address] [place] [address] * (ABNORMAL) TROPONIN 6 HR, 5TH GEN (01/05/2025 6:12 PM CDT) Pathologist [facility] TROPONIN T, 6 HR 5TH GEN 23(H) <11 ng/L 01/05/2025 7:23 PM CDT [facility] DELTA 6HR TROPONIN T 3 See Interp. 01/05/2025 7:23 PM CDT [facility] Blood Venipuncture / Unknown 01/05/2025 6:12 PM CDT 01/05/2025 6:35 PM CDT Narrative [facility] - 01/05/2025 7:23 PM CDT Troponin elevated. Delta indeterminate. Shailesh Elaine MD CHEMISTRY ORDERABLES Final Res ult Performing Organization Address [facility] Co de Phone Number [facility] CLIA # [id number] [address] [address] * (ABNORMAL) POC GLUCOSE (01/05/2025 4:38 PM CDT) [facility] GLUCOSE POC 229(H) 74 - 99 mg/dL 01/05/2025 4:38 PM CDT [facility] SPECIMEN SOURCE, GLUCOSE POC Capillary 01/05/2025 4:38 PM CDT [facility] Blood, whole 01/05/2025 4:38 PM CDT 01/05/2025 4:48 PM CDT Shailesh Elaine MD POINT OF CARE TESTING Final Re sult Performing Organization Address [facility] Co de Phone Number [facility] CLIA # [id number] [address] [id number] * D-DIMER (01/05/2025 2:50 PM CDT) D-DIMER QUANT 0.50 0.00 - 0.50 ug/mL FEU 01/05/2025 3:43 PM CDT [facility] Blood Venipuncture / Unknown 01/05/2025 2:50 PM CDT 01/05/2025 2:[address] [facility] [employer] [facility] - 01/05/2025 3:43 PM CDT D-Dimer assay cutoff value for [...] ug/mL FEU 71-80 years: 0.71-0.80 ug/mL FEU Shailesh Elaine MD HEMATOLOGY ORDERABLES Final Re sult Performing Organization Address City/[facility]/ZIP Co de Phone Number [facility] CLIA # [id number] [address] [address] * (ABNORMAL) TROPONIN BASELINE, 5TH GEN (01/05/2025 2:50 PM CDT) TROPONIN T, BASELINE 5TH GEN 20(H) <=10 ng/L 01/05/2025 3:47 PM CDT [facility] Blood Venipuncture / Unknown 01/05/2025 2:50 PM CDT 01/05/2025 2:59 PM CDT Narrative [facility] - 01/05/2025 3:47 PM CDT Troponin elevated. us Shailesh Elaine MD CHEMISTRY ORDERABLES Final Res ult [facility] CLIA # [id number] [address] [address] * EKG 12-LEAD (01/05/2025 12:18 PM CDT) 01/05/2025 12:1 8 PM CDT Narrative [employer] - 01/05/2025 3:59 PM [address]T [address] [address] Test Date: 2025-01-05 Pat Name: LE DIAZ Department: 12 Room: [address] [place] [address] Gender: Female Basket Filler: [id number] : 1965 Requested By: Order Number: [id number] Reading MD: Mana Moore Measurements Intervals [place] Rate: 107 P: 0 PA: 118 QRS: 56 QRSD: 84 T: -66 QT: 344 QTc: 459 Interpretive Statements Sinus tachycardia Possible Inferior infarct, age undetermined Abnormal ECG Electronically Signed On 01-05-2025 15:59:48 CDT by Mana Moore Procedure Note Mana Moore MD - 01/05/[address] [address] Test Date: 2025-01-05 Pat Name: LE DIAZ Department: 12 Room: [facility] Gender: Female Basket Filler: [id number] : 1965 Requested By: Order Number: [id number] Reading MD: Mana Moore Measurements Intervals [place] Rate: 107 P: 0 PA: 118 QRS: 56 QRSD: 84 T: -66 QT: 344 QTc: 459 Interpretive Statements Sinus tachycardia Possible Inferior infarct, age undetermined Abnormal ECG Electronically Signed On 01-05-2025 15:59:48 CDT by Mana Moore Shailesh Elaine MD ECG ORDERABLES Final Result INTERFACE SYSTEM Refer to clinic/hospital department * (ABNORMAL) POC GLUCOSE (01/05/2025 11:46 AM CDT) GLUCOSE POC 215(H) 74 - 99 mg/dL 01/05/2025 11:46 AM CDT [facility] SPECIMEN SOURCE, GLUCOSE POC Capillary 01/05/2025 11:46 AM CDT [facility] Blood, whole 01/05/2025 11:4 6 AM CDT 01/05/2025 11:54 AM CDT Shailesh Elaine MD POINT OF CARE TESTING Final Re sult Performing Organization Address [facility] Co de Phone Number [facility] CLIA # [id number] [address] [facility] [place] [address] * (ABNORMAL) POC GLUCOSE (01/05/2025 7:19 AM CDT) GLUCOSE POC 325(H) 74 - 99 mg/dL 01/05/2025 7:19 AM CDT [facility] SPECIMEN SOURCE, GLUCOSE POC Capillary 01/05/2025 7:19 AM CDT [facility] Blood, whole 01/05/2025 7:19 AM CDT 01/06/2025 12:58 PM CDT Shailesh Elaine MD POINT OF CARE TESTING Final Re sult Performing Organization Address City/[facility]/ZIP Co de Phone Number [facility] CLIA # [id number] [id number] [place] [address] * (ABNORMAL) PROTIME-INR (01/05/2025 4:36 AM CDT) Pathologist [facility] PROTIME 15.6(H) 12.7 - 14.9 Seconds 01/05/2025 4:59 AM CDT [facility] INR 1.2 0.8 - 1.2 01/05/2025 4:59 AM CDT [facility] Blood Venipuncture / Unknown 01/05/2025 4:36 AM CDT 01/05/2025 4:42 AM CDT Narrative [facility] - 01/05/2025 4:59 AM CDT Expected Values for INR: DVT/PE Goal INR 2.5; range 2.0 - 3.0 Valve Replacement Tissue Goal INR 2.5; range 2.0 - 3.0 Valve Replacement Mechanical Goal INR 3.0; range 2.5 - 3.5 POST-IN Goal INR 2.5; range 2.0 - 3.0 or Goal INR 3.0; range 2.5 - 3.5 Atrial Fibrillation Goal INR 2.5; range 2.0 - 3.0 Ischemic Stroke Goal INR 2.5; range 2.0 - 3.0 us Nani Borges MD HEMATOLOGY ORDERABLES Fi nal Result [facility] CLIA # [id number] [address] [place] [address] * (ABNORMAL) BASIC METABOLIC PANEL (01/05/2025 4:36 AM CDT) [facility] SODIUM 138 136 - 145 mmol/L 01/05/2025 5:20 AM CDT [facility] POTASSIUM 3.9 3.5 - 5.1 mmol/L 01/05/2025 5:20 AM CDT [facility] CHLORIDE 101 98 - 107 mmol/L 01/05/2025 5:20 AM CDT [facility] CO2 25 22 - 29 mmol/L 01/05/2025 5:20 AM CDT [facility] CALCIUM 9.2 8.6 - 10.0 mg/dL 01/05/2025 5:20 AM CDT [facility] BUN 21(H) 6 - 20 mg/dL 01/05/2025 5:20 AM CDT [facility] CREATININE 0.58 0.51 - 0.95 mg/dL 01/05/2025 5:20 AM CDT [facility] GLUCOSE 443(HH) 74 - 99 mg/dL 01/05/2025 5:20 AM T [facility] GFR >60 >=60 mL/min/1. 73 sq meter 01/05/2025 5:20 AM T [facility] Comment:eGFR calculated with 2020 CKD-EPI equation. Vegetarian diet, extremely high or low muscle mass, and may affect results. Cystatin C with Glomerular Filtration Rate is a suitable alternative for these patients. ANION GAP 12 9 - 20 mmol/L 01/05/2025 5:20 AM T [facility] Blood Venipuncture / Unknown 01/05/2025 4:36 AM CDT 01/05/2025 4:42 AM CDT us Nani Borges MD CHEMISTRY ORDERABLES Fin al Result Performing Organization Address City/State/[facility] Co de Phone Number [facility] CLIA # [id number] [address] [place] [address] * (ABNORMAL) CBC WITH DIFFERENTIAL (01/05/2025 4:36 AM CDT) [facility] WBC 6.2 4.8 - 10.8 K/uL 01/05/2025 4:54 AM CDT [facility] NRBCS 2(H) <1 % 01/05/2025 4:54 AM CDT [facility] RBC 3.61(L) 4.20 - 5.40 M/uL 01/05/2025 4:54 AM [facility] HEMOGLOBIN 10.4(L) 12.0 - 16.0 g/dL 01/05/2025 4:54 AM [facility] HEMATOCRIT 34.4(L) 36.0 - 46.0 % 01/05/2025 4:54 AM [facility] MCV 95.3 84.0 - 103.0 fL 01/05/2025 4:54 AM [facility] MCH 28.8 27.0 - 34.0 pg 01/05/2025 4:54 AM [facility] MCHC 30.2 30.0 - 35.0 g/dL 01/05/2025 4:54 AM [facility] PLATELETS 174 140 - 440 K/uL 01/05/2025 4:54 AM [facility] MPV 11.6 8.9 - 12.8 fL 01/05/2025 4:54 AM [facility] RDW 18.9(H) 11.0 - 14.5 % 01/05/2025 4:54 AM [facility] RDW-STDEV 66.4(H) 37.0 - 54.0 fL 01/05/2025 4:54 AM [facility] NEUTROPHILS 56 42 - 75 % 01/05/2025 4:54 AM [facility] LYMPHOCYTES 29 24 - 44 % 01/05/2025 4:54 AM [facility] MONOCYTES 14(H) 2 - 10 % 01/05/2025 4:54 AM [facility] EOSINOPHILS 1 0 - 7 % 01/05/2025 4:54 AM [facility] BASOPHILS 1 0 - 1 % 01/05/2025 4:54 AM [facility] IMMATURE GRANULOCYTES 1 0 - 2 % 01/05/2025 4:54 AM [facility] NEUTROPHIL ABSOLUTE 3.42 2.00 - 8.00 K/uL 01/05/2025 4:54 AM CDT [facility] LYMPHOCYTE ABSOLUTE 1.78 1.20 - 4.00 K/uL 01/05/2025 4:54 AM CDT [facility] MONOCYTE ABSOLUTE 0.84(H) 0.10 - 0.60 K/uL 01/05/2025 4:54 AM CDT [facility] EOSINOPHIL ABSOLUTE 0.04 0.00 - 0.70 K/uL 01/05/2025 4:54 AM CDT [facility] BASOPHILS ABSOLUTE 0.03 0.00 - 0.20 K/uL 01/05/2025 4:54 AM CDT [facility] IMMATURE GRANULOCYTES ABSOLUTE 0.05 0.00 - 0.10 K/uL 01/05/2025 4:54 AM CDT [facility] SMEAR REVIEWED: NN - No Action Needed 01/05/2025 4:54 AM CDT [facility] Blood Venipuncture / Unknown 01/05/2025 4:36 AM CDT 01/05/2025 4:43 AM CDT us Nani Borges MD HEMATOLOGY ORDERABLES Fi nal Result Performing Organization Address [facility]/ZIP Co de Phone Number [facility] CLIA # [id number] [address] [place] [address] * MAGNESIUM LEVEL (01/05/2025 4:36 AM CDT) MAGNESIUM 1.9 1.6 - 2.6 mg/dL 01/05/2025 5:20 AM CDT [facility] Blood Venipuncture / Unknown 01/05/2025 4:36 AM CDT 01/05/2025 4:42 AM CDT us Nani Borges MD CHEMISTRY ORDERABLES Fin al Result [facility] CLIA # [id number] [address] [place], [place] [address] * (ABNORMAL) LACTIC ACID (01/05/2025 4:35 AM CDT) Pathologist [facility] LACTIC ACID 2.2(H) <=2.0 mmol/L 01/05/2025 5:12 AM CDT [facility] Blood Venipuncture / Unknown 01/05/2025 4:35 AM CDT 01/05/2025 4:41 AM CDT us Nani Borges MD CHEMISTRY ORDERABLES Fin al Result Performing Organization Address [facility]/ZIP Co de Phone Number [facility] CLIA # [id number] [address] [address] [place], [place] [address] * (ABNORMAL) POC GLUCOSE (01/04/2025 8:14 PM CDT) [facility] GLUCOSE POC 248(H) 74 - 99 mg/dL 01/04/2025 8:14 PM CDT [facility] SPECIMEN SOURCE, GLUCOSE POC Capillary 01/04/2025 8:14 PM CDT [facility] Blood, whole 01/04/2025 8:14 PM CDT 01/04/2025 8:34 PM CDT us Nani Borges MD POINT OF CARE TESTING Fi nal Result Performing Organization Address City/[facility]/ZIP Co de Phone Number [facility] CLIA # [id number] [address] [place] [address] * EKG 12-LEAD (01/04/2025 8:11 PM CDT) 01/04/2025 8:11 PM CDT Narrative INTERFACE SYSTEM - 01/05/2025 3:56 PM [address] [address] Test Date: 2025-01-04 Pat Name: LE DIAZ Department: 12 Room: [address] [place] [address] Gender: Female Basket Filler: [id number] : 1965 Requested By: Order Number: [id number] Reading MD: Mana Moore Measurements Intervals [place] Rate: 98 P: 0 PA: 138 QRS: 43 QRSD: 88 T: -83 QT: 338 QTc: 431 Interpretive Statements Possible lead reversal Possible ectopic atrial rhythm Inferior infarct, age undetermined Abnormal ECG Electronically Signed On 01-05-2025 15:56:28 CDT by Mana Moore Procedure Note Mana Moore MD - 01/05/[address] [address] Test Date: 2025-01-04 Pat Name: LE DIAZ Department: 12 Room: [address] [place] [address] Gender: Female Basket Filler: [id number] : 1965 Requested By: Order Number: [id number] Reading MD: Mana Moore Measurements Intervals [place] Rate: 98 P: 0 PA: 138 QRS: 43 QRSD: 88 T: -83 QT: 338 QTc: 431 Interpretive Statements Possible lead reversal Possible ectopic atrial rhythm Inferior infarct, age undetermined Abnormal ECG Electronically Signed On 01-05-2025 15:56:28 CDT by Mana Moore us Tiffanie Dawn [employer] COMM[employer]ICATIONS OPERATOR ECG ORDERABLES Final R esult INTERFACE SYSTEM Refer to clinic/hospital department * (ABNORMAL) POC GLUCOSE (01/04/2025 4:55 PM CDT) GLUCOSE POC 346(H) 74 - 99 mg/dL 01/04/2025 4:55 PM CDT [facility] SPECIMEN SOURCE, GLUCOSE POC Capillary 01/04/2025 4:55 PM CDT [facility] Blood, whole 01/04/2025 4:55 PM CDT 01/04/2025 5:02 PM CDT us Nani Borges MD POINT OF CARE TESTING Fi nal Result Performing Organization Address [facility] Co de Phone Number [facility] CLIA # [id number] [address] [address] * (ABNORMAL) POC GLUCOSE (01/04/2025 3:00 PM CDT) GLUCOSE POC 437(HH) 74 - 99 mg/dL 01/04/2025 3:00 PM CDT [facility] SPECIMEN SOURCE, GLUCOSE POC Capillary 01/04/2025 3:00 PM CDT [facility] COMMENT, GLU POC Alerted Nurse/MARIELLA/DR 01/04/2025 3:00 PM CDT [facility] Blood, whole 01/04/2025 3:00 PM CDT 01/04/2025 3:07 PM CDT us Nani Borges MD POINT OF CARE TESTING Fi nal Result Performing Organization Address [facility] Co de Phone Number [facility] CLIA # [id number] [address] [place] [address] * (ABNORMAL) LACTIC ACID (01/04/2025 2:15 PM CDT) LACTIC ACID 3.7(H) <=2.0 mmol/L 01/04/2025 2:44 PM CDT [facility] Blood Venipuncture / Unknown 01/04/2025 2:15 PM CDT 01/04/2025 2:19 PM CDT Nani Borges MD CHEMISTRY ORDERABLES Fin al Result Performing Organization Address City/[facility] Co de Phone Number [facility] CLIA # [id number] [address] [place] [address] * (ABNORMAL) TROPONIN 6 HR, 5TH GEN (01/04/2025 2:15 PM CDT) TROPONIN T, 6 HR 5TH GEN 18(H) <11 ng/L 01/04/2025 2:51 PM CDT [facility] DELTA 6HR TROPONIN T 4 See Interp. 01/04/2025 2:51 PM CDT [facility] Blood Venipuncture / Unknown 01/04/2025 2:15 PM CDT 01/04/2025 2:20 PM CDT Narrative [facility] - 01/04/2025 2:51 PM CDT Troponin elevated. Delta indeterminate. Delay in collection of timed specimen beyond recommended collection interval. Results must be interpreted in clinical context. Nani Borges MD CHEMISTRY ORDERABLES Fin al Result Performing Organization Address [facility] Co de Phone Number [facility] CLIA # [id number] [address] [place] [address] * (ABNORMAL) POC GLUCOSE (01/04/2025 12:40 PM CDT) GLUCOSE POC 301(H) 74 - 99 mg/dL 01/04/2025 12:40 PM CDT [facility] SPECIMEN SOURCE, GLUCOSE POC Capillary 01/04/2025 12:40 PM CDT [facility] COMMENT, GLU POC Alerted Nurse/MARIELLA/DR 01/04/2025 12:40 PM CDT [facility] Blood, whole 01/04/2025 12:4 0 PM CDT 01/04/2025 12:48 PM CDT Nani Borges MD POINT OF CARE TESTING Fi nal Result Performing Organization Address [facility] Co de Phone Number [facility] CLIA # [id number] [facility] [address] [id number] * (ABNORMAL) TROPONIN 2 HR, 5TH GEN (01/04/2025 10:52 AM CDT) TROPONIN T, 2 HR 5TH GEN 15(H) <=10 ng/L 01/04/2025 11:[address] [facility] [employer] [facility] DELTA 2HR TROPONIN T 1 See Interp. 01/04/2025 11:[address] [facility] [employer] [facility] Blood Venipuncture / Unknown 01/04/2025 10:52 AM CDT 01/04/2025 10:[address] [facility] [employer] [facility] - 01/04/2025 11:31 AM CDT Troponin elevated. Delta not changing. Delay in collection of timed specimen beyond recommended collection interval. Results must be interpreted in clinical context. Nani Borges MD CHEMISTRY ORDERABLES Fin al Result Performing Organization Address [facility] Co de Phone Number [facility] [employer] [facility] CLIA # [id number] [facility] [address] [address] * (ABNORMAL) TROPONIN BASELINE, 5TH GEN (01/04/2025 8:59 AM CDT) TROPONIN T, BASELINE 5TH GEN 14(H) <=10 ng/L 01/04/2025 9:[address] [facility] [employer] [facility] Blood Venipuncture / Unknown 01/04/2025 8:59 AM CDT 01/04/2025 9:[address] [facility] [employer] [facility] - 01/04/2025 9:51 AM CDT Troponin elevated. Heike Camarillo MD CHEMISTRY ORDERABLES Final Resul t [facility] # [id number] [address] [place] [address] * INSERT PERIPHERAL IV (01/04/2025 8:35 AM CDT) Narrative [facility] - 01/04/2025 8:35 AM CDT Tasha Glynn RN 01/04/2025 9:14 AM VASCULAR ACCESS NOTE Midline PATIENT NAME: Le Diaz DATE OF : 1965 CSN: [id number] DATE: 01/04/2025 Room: 05/23 Admit Date: 01/04/2025 Hospital day: LOS: 0 days I LINE STATUS: A Midline catheter was successfully inserted and can be used Adult Midline Catheter: Single Lumen 01/04/25824 Right: basilic vein (Active) 01/04/25824 basilic vein Earliest Known Present: 01/04/25 Present on Admission: No Orientation: Right: Size: Number of Insertion Attempts: 1 Insertion: Patient Tolerance: tolerated well;appears comfortable Insertion: Pain Prevention: Power Injectable Compatable: Yes Earliest Known Removed: Removal Indication: Removal Interventions: Inserted Catheter Length (cm) 01/04/25824 Midline Catheter (WDL) WDL 01/04/25824 *Blood draw from Midline catheter Blood draw from Midline catheter placed in current admission 01/04/25824 Extremity Circumference, Mid-Upper (cm) 34 01/04/25824 Patency flushes w/o difficulty;positive blood return 01/04/25824 Line Interventions system flushed;IV capped 01/04/25824 Dressing Type/Securement antimicrobial dressing;transparent dressing;secured w/ sterile tape strips;site adhesive 01/04/25824 Dressing Changed Date 01/04/25 01/04/25824 Needleless Connector Changed Date 01/04/25 01/04/25824 Line Criteria Poor venous access 01/04/25824 Number of days: 0 MIDLINE PROCEDURE A [...] stick. A midline was inserted in the BASILIC vein of the right upper arm using ultrasound guidance under sterile technique. 20gauge, 10cm Secure port adhesive used Yes 1 attempts Blood obtained from this iv start collected and sent to lab 45 minutes required to complete procedure Positive blood return visualized. Neutral pressure cap applied Catheter flushed easily with 5ml of Normal Saline Transparent antimicrobial stabilization dressing applied Antimicrobial cap placed Dressing with date, time and initials of RN Patient tolerated procedure well. Primary care nurse notified of catheter placement Tasha Glynn, [facility] [employer] This is not a [...] weekly and as needed using sterile technique us Heike Camarillo MD IV THERAPY ORDERABLES Final Resu lt [facility] CARDIOLOGY [facility] [id number] [facility] [address] [place], [place] [id number], [place] [phone] * (ABNORMAL) LACTIC ACID (01/04/2025 8:24 AM CDT) LACTIC ACID 4.6(HH) <=2.0 mmol/L 01/04/2025 8:[address] [facility] Blood BLOOD SPECIMEN / Unknown Venipuncture / Unknown 01/04/2025 8:24 AM CDT 01/04/2025 8:27 AM CDT Heike Camarillo MD CHEMISTRY ORDERABLES Final Resul t Performing Organization Address [facility]/ZIP Co de Phone Number [facility] [employer] [facility] CLIA # [id number] [address] [place] [address] * PROTIME-INR (01/04/2025 8:24 AM CDT) PROTIME 13.5 12.7 - 14.9 Seconds 01/04/2025 8:[address] [facility] [employer] [facility] INR 1.0 0.8 - 1.2 01/04/2025 8:[address] [facility] [employer] [facility] Blood Venipuncture / Unknown 01/04/2025 8:24 AM CDT 01/04/2025 8:[address] [facility] [employer] [facility] - 01/04/2025 8:39 AM CDT Expected Values for INR: DVT/PE Goal INR 2.5; range 2.0 - 3.0 Valve Replacement Tissue Goal INR 2.5; range 2.0 - 3.0 Valve Replacement Mechanical Goal INR 3.0; range 2.5 - 3.5 POST-IN Goal INR 2.5; range 2.0 - 3.0 or Goal INR 3.0; range 2.5 - 3.5 Atrial Fibrillation Goal INR 2.5; range 2.0 - 3.0 Ischemic Stroke Goal INR 2.5; range 2.0 - 3.0 Heike Camarillo MD HEMATOLOGY ORDERABLES Final Resu lt [facility] [employer] [facility] CLIA # [id number] [address] [place] [address] * (ABNORMAL) COMPREHENSIVE METABOLIC PANEL (01/04/2025 8:24 AM CDT) SODIUM 137 136 - 145 mmol/L 01/04/2025 9:11 AM [facility] POTASSIUM 4.7 3.5 - 5.1 mmol/L 01/04/2025 9:11 AM [facility] CHLORIDE 101 98 - 107 mmol/L 01/04/2025 9:11 AM [facility] CO2 21(L) 22 - 29 mmol/L 01/04/2025 9:11 AM [facility] CALCIUM 9.8 8.6 - 10.0 mg/dL 01/04/2025 9:11 AM [facility] BUN 16 6 - 20 mg/dL 01/04/2025 9:11 AM [facility] CREATININE 0.53 0.51 - 0.95 mg/dL 01/04/2025 9:11 AM [facility] GLUCOSE 468(HH) 74 - 99 mg/dL 01/04/2025 9:11 AM [facility] TOTAL PROTEIN 7.0 6.4 - 8.3 g/dL 01/04/2025 9:11 AM [facility] ALBUMIN 3.8 3.5 - 5.2 g/dL 01/04/2025 9:11 AM [facility] BILIRUBIN TOTAL 0.2 0.0 - 1.0 mg/dL 01/04/2025 9:11 AM [facility] ALKALINE PHOSPHATASE 159(H) 35 - 104 U/L 01/04/2025 9:11 AM [facility] AST 33 10 - 35 U/L 01/04/2025 9:11 AM [facility] ALT 33 <=35 U/L 01/04/2025 9:11 AM [facility] GFR >60 >=60 mL/min/1. 73 sq meter 01/04/2025 9:11 AM [facility] Comment:eGFR calculated with 2020 CKD-EPI equation. Vegetarian diet, extremely high or low muscle mass, and may affect results. Cystatin C with Glomerular Filtration Rate is a suitable alternative for these patients. ANION GAP 15 9 - 20 mmol/L 01/04/2025 9:[address] [facility] [employer] [facility] Blood Venipuncture / Unknown 01/04/2025 8:24 AM CDT 01/04/2025 8:29 AM CDT Heike Camarillo MD CHEMISTRY ORDERABLES Final Resul t Performing Organization Address City/[facility]/ZIP Co de Phone Number [facility] CLIA # [id number] [address] [address] [place] [address] * (ABNORMAL) POC LACTIC ACID (01/04/2025 7:43 AM CDT) LACTIC ACID POC 5.3(HH) <=2.0 mmol/L 01/04/2025 7:43 AM CDT [facility] SPECIMEN SOURCE, GASES POC Venous 01/04/2025 7:[address] [facility] [employer] [facility] CRITICALTO POC DR.PLATE 01/04/2025 7:[address] [facility] [employer] [facility] NAME POC [id number] C 01/04/2025 7:[address] [facility] [employer] [facility] RESULTS POC Y 01/04/2025 7:[address] [facility] [employer] [facility] TIME POC 744 01/04/2025 7:[address] [facility] [employer] [facility] PUNC SITE POC No Charge 01/04/2025 7:[address] [facility] [employer] [facility] Blood 01/04/2025 7:43 AM CDT 01/04/2025 7:[address] [facility] [employer] [facility] - 01/04/2025 7:43 AM CDT References ranges displayed are for Arterial samples. us Heike Camarillo MD POINT OF CARE TESTING Final Resu lt Performing Organization Address City/[facility]/ZIP Co de Phone Number [facility] CLIA # [id number] [address] [address] * (ABNORMAL) BLOOD GAS VENOUS (01/04/2025 7:43 AM T) [facility] PH BLOOD POC 7.35 7.32 - 7.43 01/04/2025 7:43 AM [facility] PCO2 POC 37(L) 38 - 50 mm Hg 01/04/2025 7:43 AM [facility] PO2 POC 56(H) 25 - 40 mm Hg 01/04/2025 7:43 AM [facility] HCO3 (CALC) POC 20(L) 22 - 29 mmol/L 01/04/2025 7:43 AM [facility] HEMOGLOBIN POC 11.7(L) 12.0 - 18.0 g/dL 01/04/2025 7:43 AM [facility] BASE EXCESS POC -5(L) -2 - 3 mmol/L 01/04/2025 7:43 AM [facility] O2 SATURATION POC 88(H) 40 - 70 % 01/04/2025 7:43 AM [facility] SODIUM POC 134(L) 135 - 145 mmol/L 01/04/2025 7:43 AM [facility] POTASSIUM POC 4.8 3.5 - 4.9 mmol/L 01/04/2025 7:43 AM [facility] HEMATOCRIT POC 35(L) 38 - 51 % 01/04/2025 7:43 AM [facility] PH TEMP CORRECT 7.35 7.32 - 7.43 01/05/20 7:43 AM [facility] PCO2 TEMP CORRECT 37(L) 38 - 50 mm Hg 01/04/2025 7:43 AM [facility] PO2 TEMP CORRECT 56(H) 25 - 40 mm Hg 01/04/2025 7:43 AM [facility] SPECIMEN SOURCE, GASES POC Venous 01/04/2025 7:43 AM [facility] CRITICALTO POC DR.PLATE 01/04/2025 7:43 AM CDT [facility] NAME POC [id number] C 01/04/2025 7:43 AM CDT [facility] RESULTS POC Y 01/04/2025 7:43 AM CDT [facility] TIME POC 744 01/04/2025 7:43 AM CDT [facility] CALCIUM IONIZED POC 5.1 4.8 - 5.2 mg/dL 01/04/2025 7:43 AM CDT [facility] TCO2 (CALC) POC 22 22 - 26 mmol/L 01/04/2025 7:43 AM CDT [facility] PUNC SITE POC No Charge 01/04/2025 7:43 AM CDT [facility] PATIENT'S TEMPERATURE POC 37.0 degrees 01/04/2025 7:43 AM CDT [facility] Blood, venous 01/04/2025 7:4 3 AM CDT 01/04/2025 7:45 AM CDT us Heike Camarillo MD ABG ORDERABLES Final Result [facility] CLIA # [id number] [address] [place] [address] * (ABNORMAL) CBC WITH DIFFERENTIAL (01/04/2025 7:39 AM CDT) [facility] WBC 8.2 4.8 - 10.8 K/uL 01/04/2025 8:06 AM CDT [facility] NRBCS 2(H) <1 % 01/04/2025 8:06 AM T [facility] RBC 3.81(L) 4.20 - 5.40 M/uL 01/04/2025 8:06 AM CDT [facility] HEMOGLOBIN 11.0(L) 12.0 - 16.0 g/dL 01/04/2025 8:06 AM T [facility] HEMATOCRIT 35.4(L) 36.0 - 46.0 % 01/04/2025 8:06 AM [facility] [employer] [facility] MCV 92.9 84.0 - 103.0 fL 01/04/2025 8:06 AM [facility] [employer] [facility] MCH 28.9 27.0 - 34.0 pg 01/04/2025 8:06 AM [facility] [employer] [facility] MCHC 31.1 30.0 - 35.0 g/dL 01/04/2025 8:06 AM [facility] [employer] [facility] PLATELETS 196 140 - 440 K/uL 01/04/2025 8:06 AM [facility] [employer] [facility] MPV 11.2 8.9 - 12.8 fL 01/04/2025 8:06 AM [facility] [employer] [facility] RDW 18.9(H) 11.0 - 14.5 % 01/04/2025 8:06 AM [facility] [employer] [facility] RDW-STDEV 63.9(H) 37.0 - 54.0 fL 01/04/2025 8:06 AM [facility] [employer] [facility] NEUTROPHILS 80(H) 42 - 75 % 01/04/2025 8:06 AM [facility] LYMPHOCYTES 15(L) 24 - 44 % 01/04/2025 8:06 AM [facility] MONOCYTES 3 2 - 10 % 01/04/2025 8:06 AM [facility] [employer] [facility] EOSINOPHILS 0 0 - 7 % 01/04/2025 8:06 AM [facility] [employer] [facility] BASOPHILS 0 0 - 1 % 01/04/2025 8:06 AM [facility] [employer] [facility] IMMATURE GRANULOCYTES 2 0 - 2 % 01/04/2025 8:06 AM [facility] [employer] [facility] NEUTROPHIL ABSOLUTE 6.55 2.00 - 8.00 K/uL 01/04/2025 8:06 AM [facility] LYMPHOCYTE ABSOLUTE 1.20 1.20 - 4.00 K/uL 01/04/2025 8:06 AM [facility] [employer] [facility] MONOCYTE ABSOLUTE 0.28 0.10 - 0.60 K/uL 01/04/2025 8:06 AM CDT [facility] EOSINOPHIL ABSOLUTE 0.00 0.00 - 0.70 K/uL 01/04/2025 8:06 AM CDT [facility] BASOPHILS ABSOLUTE 0.02 0.00 - 0.20 K/uL 01/04/2025 8:06 AM CDT [facility] IMMATURE GRANULOCYTES ABSOLUTE 0.17(H) 0.00 - 0.10 K/uL 01/04/2025 8:06 AM CDT [facility] SMEAR REVIEWED: NA - Not Applicable 01/04/2025 8:06 AM CDT [facility] Blood Venipuncture / Unknown 01/04/2025 7:39 AM CDT 01/04/2025 7:54 AM CDT us Heike Camarillo MD HEMATOLOGY ORDERABLES Final Resu lt [facility] CLIA # [id number] [facility] [address] [place] [address] * XR CHEST PA OR AP 1 VW (01/04/2025 7:23 AM CDT) Anatomical Region Laterality Modality Chest Computed Radiogr aphy 01/04/2025 7:24 AM CDT Impressions 01/04/2025 10:42 AM CDT IMPRESSION: Please see below. Exam: XR CHEST PA OR AP 1 VW Date/Time of Exam: 01/04/2025 7:23 AM Reason For Exam: Shortness of Breath SOB. Diagnosis: See Reason for Exam. Comparison: January 03, 2025 FINDINGS: Cardiomediastinal silhouette appears stable allowing for difference in technique. Heart size normal. Decreased lung volumes exaggerating markings. 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 No active airspace infiltrate or effusion. No pneumothorax. Elevated right hemidiaphragm. Cervical fixation plate. Narrative Procedure Note Carlos Garcia, DO - 01/04/2025 IMPRESSION: Please see below. Exam: XR CHEST PA OR AP 1 VW Date/Time of Exam: 01/04/2025 7:23 AM Reason For Exam: Shortness of Breath SOB. Diagnosis: See Reason for Exam. Comparison: January 03, 2025 FINDINGS: Cardiomediastinal silhouette appears stable allowing for difference in technique. Heart size normal. Decreased lung volumes exaggerating markings. 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 No active airspace infiltrate or effusion. No pneumothorax. Elevated right hemidiaphragm. Cervical fixation plate. Heike Camarillo MD DIAGNOSTIC IMAGING ORDERABLES Fi nal Result * (ABNORMAL) BRAIN NATRIURETIC PEPTIDE, BNP OR PROBNP (01/04/2025 7:12 AM CDT) PROBNP, N TERMINAL 703(H) 0 - 125 pg/mL 01/04/2025 7:[address] [facility] [employer] [facility] Comment: INTERPRETIVE COMMENT based on [...] years: >1800 pg/mL Blood Venipuncture / Unknown 01/04/2025 7:12 AM CDT 01/04/2025 7:15 AM CDT Heike Camarillo MD CHEMISTRY ORDERABLES Final Resul t [facility] [employer] [facility] CLIA # [id number] [address] [place] [address] [place] [address] * EKG 12-LEAD (01/04/2025 6:45 AM CDT) 01/04/2025 6:4 5 AM CDT Narrative INTERFACE SYSTEM - 01/05/2025 11:51 AM CDT [address] [address] Test Date: 2025-01-04 Pat Name: LE DIAZ Department: 11 Room: Gender: Female Basket Filler: [id number] : 1965 Requested By: Order Number: [id number] Reading MD: Lawrence Grey Measurements Intervals [place] Rate: 99 P: 14 PA: 144 QRS: 46 QRSD: 84 T: 36 QT: 334 QTc: 428 Interpretive Statements Sinus rhythm with premature atrial complexes Otherwise normal ECG Electronically Signed On 01-05-2025 11:51:21 CDT by Lawrence Grey Procedure Note Provider, Historical - 01/05/[address] [address] Test Date: 2025-01-04 Pat Name: LE CLAUDIOKINS Department: 11 Room: Gender: Female Basket Filler: [id number] : 1965 Requested By: Order Number: [id number] Reading MD: Lawrence Grey Measurements Intervals [place] Rate: 99 P: 14 PA: 144 QRS: 46 QRSD: 84 T: 36 QT: 334 QTc: 428 Interpretive Statements Sinus rhythm with premature atrial complexes Otherwise normal ECG Electronically Signed On 01-05-2025 11:51:21 CDT by Lawrence Grey us Heike Camarillo MD ECG ORDERABLES Final Result Performing Organization Address City/State/[facility] Co de Phone Number INTERFACE SYSTEM Refer to clinic/hospital department documented in this encounter Visit Diagnoses Diagnosis Acute on chronic combined systolic and diastolic heart failure- Primary Respiratory distress Other dyspnea and respiratory abnormality Atherosclerosis of [place] coronary artery of [place] heart without angina pectoris Chronic pain syndrome HEENA (generalized anxiety disorder) Generalized anxiety disorder Abdominal pain, acute, right upper quadrant Abdominal pain, right upper quadrant Bipolar affective disorder (CMS/HCC) Bipolar disorder, unspecified Hypertension Unspecified essential hypertension Former smoker Personal history of tobacco use, presenting hazards to health Mixed hyperlipidemia Atherosclerosis of [place] coronary artery of [place] heart without angina pectoris Chronic pain syndrome HEENA (generalized anxiety disorder) Generalized anxiety disorder Type 2 diabetes mellitus without complication, without long-term current use of insulin Chronic respiratory failure with hypoxia, on home O2 therapy ([facility]) Acute on chronic hypoxic respiratory failure ([facility]) Insulin dependent type 2 diabetes mellitus Type II or unspecified type diabetes mellitus without mention of complication, not stated as uncontrolled Morbid obesity due to excess calories ([facility]) Chronic anticoagulation Encounter for long-term (current) use of anticoagulants Combined forms of age-related cataract of right eye Other and combined forms of senile cataract Right retinal detachment Unspecified retinal detachment documented in this encounter Administered Medications Inactive Administered Medications - up to 3 most recent administrations Medication Order MAR Action Action Date Dose Rate Site amitriptyline (ELAVIL) tablet 25 mg 25 mg, Oral, DAILY, First dose on Thu01/04/25 at 1115, Until Discontinued, Routine, Previous Med: amitriptyline (ELAVIL) 25 mg tablet - Orig Sig - Take 25 mg by mouth daily. Given 01/06/2025 10:32 AM CDT 25 mg Given 01/05/2025 8:37 AM CDT 25 mg Given 01/04/2025 12:54 PM CDT 25 mg aspirin (CARTER CHEWABLE) chewable tablet 81 mg 81 mg, Oral, DAILY, First dose on Thu01/04/25 at 1115, Until Discontinued, Routine, Previous Med: aspirin (CARTER CHEWABLE) 81 mg Tablet, Chewable - Orig Sig - Take 81 mg by mouth daily. Given 01/06/2025 10:32 AM CDT 81 mg Given 01/05/2025 8:35 AM CDT 81 mg Given 01/04/2025 12:19 PM CDT 81 mg atorvastatin (LIPITOR) tablet 40 mg 40 mg, Oral, DAILY AT BEDTIME, First dose on Thu01/04/25 at 2100, Until Discontinued, Routine, Previous Med: atorvastatin (LIPITOR) 40 mg tablet - Orig Sig - Take 40 mg by mouth daily at bedtime. Given 01/05/2025 8:50 PM CDT 40 mg Given 01/04/2025 8:04 PM CDT 40 mg bisacodyL (DULCOLAX) rectal suppository 10 mg 10 mg, Rectal, DAILY PRN, Starting on Thu01/04/25 at 1058, Until Thu01/06/25 at 1708, Constipation, Routine dextrose 5 % - sodium chloride 0.9 % infusion IV, at 40 mL/hr, SEE ADMIN INSTRUCTIONS, Starting on Thu01/04/25 at 1109, Until Thu01/06/25 at 1708, Routine dextrose 5 % in water 250 mL flush bag 25 mL 25 mL, IV, SEE ADMIN INSTRUCTIONS, Starting on Thu01/04/25 at 0636, Until Thu01/06/25 at 1708, Routine dextrose 50% (D50) syringe 12.5 Gram 12.5 Gram, IV, SEE ADMIN INSTRUCTIONS, Starting on Thu01/04/25 at 1109, Until Thu01/06/25 at 1708, Routine dextrose 50% (D50) syringe 25 Gram 25 Gram, IV, SEE ADMIN INSTRUCTIONS, Starting on Thu01/04/25 at 1109, Until Thu01/06/25 at 1708, Routine fentaNYL (PF) (SUBLIMAZE) 50 mcg/mL injection 50 mcg 50 mcg, IV, ONE TIME ONLY, 1 dose, On Thu01/04/25 at 0730, Routine Given 01/04/2025 7:38 AM CDT 50 mcg fluticasone furoate-vilanteroL (BREO ELLIPTA) 100-25 mcg/dose inhaler 1 Puff 1 Puff, Inhalation, DAILY RESPIRATORY, First dose on [facility] 01/05/25 at 0800, Until Discontinued, Routine Given 01/05/2025 7:24 AM CDT 1 Puff furosemide (LASIX) injection 80 mg 80 mg, IV, TWO TIMES DAILY, 7 HOURS APART, First dose on Thu01/04/25 at 1115, Until Discontinued, Routine Given 01/04/2025 12:21 PM CDT 80 mg furosemide (LASIX) injection 80 mg 80 mg, IV, TWO TIMES DAILY, 7 HOURS APART, First dose on Thu01/04/25 at 1700, Until Discontinued, Routine Given 01/04/2025 5:22 PM CDT 80 mg furosemide (LASIX) tablet 80 mg 80 mg, Oral, TWO TIMES DAILY, 7 HOURS APART, First dose (after last modification) on [facility] 01/05/25 at 0900, Until Discontinued, Routine Given 01/06/2025 10:32 AM CDT 80 mg Given 01/05/2025 4:36 PM CDT 80 mg Given 01/05/2025 9:02 AM CDT 80 mg glucagon HCL 1 mg/mL injection 1 mg 1 mg, IM, SEE ADMIN INSTRUCTIONS, Starting on Thu01/04/25 at 1109, Until Thu01/06/25 at 1708, Routine HYDROcodone-acetaminophen (NORCO) 5-325 mg per tablet 1 Tablet 1 Tablet, Oral, ONE TIME ONLY, 1 dose, On Thu01/04/25 at 1030, Routine Given 01/04/2025 10:17 AM CDT 1 Tablet HYDROcodone-acetaminophen (NORCO) 7.5-325 mg per tablet 1 Tablet 1 Tablet, Oral, EVERY 8 HOURS PRN, Starting on Thu01/04/25 at 1051, Until Thu01/06/25 at 1708, Pain, Moderate, Pain, Severe, Routine, Previous Med: HYDROcodone-acetaminophen (NORCO) 7.5-325 mg Tablet - Orig Sig - Take 1 Tablet by mouth every 8 hours as needed for Pain, Moderate or Pain, Severe. Given 01/06/2025 10:42 AM CDT 1 Tablet Given 01/05/2025 4:36 PM CDT 1 Tablet Given 01/05/2025 9:04 AM CDT 1 Tablet ibuprofen (MOTRIN) tablet 400 mg 400 mg, Oral, EVERY 6 HOURS PRN, Starting on Thu01/04/25 at 1702, Until Thu01/06/25 at 1708, Pain, Mild, Routine Given 01/05/2025 7:22 AM CDT 400 mg Given 01/04/2025 7:02 PM CDT 400 mg insulin glargine (LANTUS) injection 45 Units 45 Units, subCUT, TWO TIMES DAILY, First dose on Thu01/04/25 at 1115, Until Discontinued, Routine Given 01/06/2025 10:31 AM CDT 45 Units Abdominal Tissue Given 01/05/2025 8:55 PM CDT 45 Units Ar m, Left Given 01/05/2025 8:40 AM CDT 45 Units Ab dominal Tissue insulin lispro (HumaLOG,ADMELOG) injection 0-12 Units 0-12 Units, subCUT, THREE TIMES DAILY WITH MEALS, First dose on Thu01/04/25 at 1200, Until Discontinued, Routine Feeding Started 01/05/2025 5:21 PM CDT 4 Units Abdominal Tissue Given 01/05/2025 12:06 PM CDT 4 Units A bdominal Tissue Given 01/05/2025 7:22 AM CDT 8 Units Ar m, Right insulin lispro (HumaLOG,ADMELOG) injection 0-12 Units 0-12 Units, subCUT, FOUR TIMES DAILY WITH MEALS AND AT BEDTIME, First dose (after last modification) on Thu01/06/25 at 0800, Until Discontinued, Routine Given 01/06/2025 12:03 PM CDT 8 Units Abdominal Tissue insulin lispro (HumaLOG,ADMELOG) injection 0-6 Units 0-6 Units, subCUT, DAILY AT BEDTIME, First dose on Thu01/04/25 at 2100, Until Discontinued, Routine Given 01/05/2025 8:54 PM CDT 2 Units Arm, Left insulin lispro (HumaLOG,ADMELOG) injection 10 Units 10 Units, subCUT, ONE TIME ONLY, 1 dose, On Thu01/05/25 at 0545, Routine Given 01/05/2025 5:40 AM CDT 10 Units Abdomen, Left Lower Quadrant insulin lispro (HumaLOG,ADMELOG) injection 15 Units 15 Units, subCUT, THREE TIMES DAILY WITH MEALS, First dose on Thu01/04/25 at 1200, Until Discontinued, Routine Given 01/06/2025 12:03 PM CDT 15 Units Abdominal Tissue Feeding Started 01/05/2025 5:22 PM CDT 15 Units Abdominal Tissue Given 01/05/2025 12:07 PM CDT 15 Units A bdominal Tissue insulin lispro (HumaLOG,ADMELOG) injection 8 Units 8 Units, subCUT, ONE TIME ONLY, 1 dose, On Thu01/06/25 at 0315, Routine Given 01/06/2025 3:43 AM CDT 8 Units Arm, Left ipratropium-albuteroL (DUONEB) 0.5 mg-3 mg(2.5 mg base)/3 mL inhalation solution 3 mL 3 mL, Inhalation, EVERY 6 HOURS RESPIRATORY, First dose on Thu01/04/25 at 1300, Until Discontinued, Routine, Previous Med: ipratropium-albuteroL (DUONEB) 0.5 mg-3 mg(2.5 mg base)/3 mL Solution for Nebulization - Orig Sig - Take 3 mL by inhalation every 4 hours as needed for Shortness of Breath. Given 01/06/2025 10:20 AM CDT 3 mL Given 01/06/2025 2:04 AM CDT 3 mL isosorbide mononitrate (IMDUR) SR 24 hour tablet 30 mg 30 mg, Oral, DAILY, First dose on Thu01/04/25 at 1115, Until Discontinued, Routine, Previous Med: isosorbide mononitrate (IMDUR) 30 mg Extended Release 24 hour tablet - Orig Sig - TAKE 1 TABLET BY MOUTH EVERY DAY Given 01/06/2025 10: 32 AM CDT 30 mg Given 01/05/2025 8:35 AM CDT 30 mg Given 01/04/2025 12:19 PM CDT 30 mg magnesium HYDROXIDE (MILK OF MAGNESIA) oral suspension 30 mL 30 mL, Oral, DAILY PRN, Starting on Thu01/04/25 at 1058, Until Thu01/06/25 at 1708, Constipation, Routine meclizine (ANTIVERT) tablet 12.5 mg 12.5 mg, Oral, THREE TIMES DAILY, First dose on Thu01/04/25 at 1300, Until Discontinued, Routine, Previous Med: meclizine (ANTIVERT) 12.5 mg tablet - Orig Sig - Take 1 Tablet (12.5 mg) by mouth 3 times daily. Given 01/06/2025 12:02 PM CDT 12.5 mg Given 01/05/2025 5:22 PM CDT 12.5 mg Given 01/05/2025 12:06 PM CDT 12.5 mg metoprolol succinate (TOPROL XL) SR 24 hour tablet 25 mg 25 mg, Oral, DAILY, First dose on Thu01/04/25 at 1115, Until Discontinued, Routine, Previous Med: metoprolol succinate (TOPROL XL) 25 mg Extended Release 24 hour tablet - Orig Sig - Take 1 Tablet (25 mg) by mouth daily. Given 01/06/2025 10:32 AM CDT 25 mg Feeding Started 01/05/2025 8:37 AM CDT 25 mg Given 01/04/2025 12:20 PM CDT 25 mg morphine 4 mg/mL injection 2 mg 2 mg, IV, EVERY 4 HOURS PRN, Starting on [place] 01/05/25 at 1207, Until [place] 01/05/25 at 2344, Pain (See admin instructions), Routine Given 01/05/2025 11:13 PM CDT 2 mg Given 01/05/2025 6:15 PM CDT 2 mg Given 01/05/2025 12:36 PM CDT 2 mg morphine 4 mg/mL injection 2 mg 2 mg, IV, EVERY 4 HOURS PRN, Starting on Thu01/05/25 at 2342, Until Thu01/06/25 at 1708, Pain (See admin instructions), Routine Given 01/06/2025 9:30 AM CDT 2 mg Given 01/06/2025 6:16 AM CDT 2 mg Given 01/06/2025 2:09 AM CDT 2 mg OLANZapine (ZyPREXA) tablet 10 mg 10 mg, Oral, DAILY AT BEDTIME, First dose on Thu01/04/25 at 2100, Until Discontinued, Routine, Previous Med: OLANZapine (ZyPREXA) 10 mg tablet - Orig Sig - Take 10 mg by mouth daily at bedtime. Given 01/05/2025 8:49 PM CDT 10 mg Given 01/04/2025 8:05 PM CDT 10 mg oxyCODONE (ROXICODONE) tablet 5 mg 5 mg, Oral, ONE TIME ONLY, 1 dose, On Thu01/04/25 at 2000, Routine Given 01/04/2025 8:05 PM CDT 5 mg pantoprazole (PROTONIX) tablet 40 mg 40 mg, Oral, DAILY BEFORE BREAKFAST, First dose on Thu01/06/25 at 0730, Until Discontinued, Routine, Indication: Gastroesophageal reflux disease (GERD) potassium CHLORIDE (KLOR-CON) SR tablet 20 mEq 20 mEq, Oral, TWO TIMES DAILY WITH MEALS, First dose on Thu01/06/25 at 0800, Until Discontinued, Routine Given 01/06/2025 10:32 AM CDT 20 mEq potassium CHLORIDE 20 mEq/100 mL IVPB 20 mEq 20 mEq, IV, ONE TIME ONLY, 1 dose, On Thu01/06/25 at 0315, Routine Restarted 01/06/2025 4:38 AM CDT 40 mL/hr Restarted 01/06/2025 4:34 AM CDT 40 mL/hr Restarted 01/06/2025 4:25 AM CDT 40 mL/hr regadenoson (LEXISCAN) 0.4 mg/5 mL injection 0.4 mg, IV, INTRA-PROCEDURE ONCE, 1 dose, Starting on Thu01/06/25 at 0720, Until Thu01/06/25 at 0818, Routine Given 01/06/2025 8:18 AM CDT 0.4 mg rOPINIRole (REQUIP) tablet 0.5 mg 0.5 mg, Oral, DAILY AT BEDTIME, First dose on Thu01/04/25 at 2100, Until Discontinued, Routine, Previous Med: rOPINIRole (REQUIP) 0.5 mg tablet - Orig Sig - Take 0.5 mg by mouth daily at bedtime. Given 01/05/2025 8:50 PM CDT 0.5 mg Given 01/04/2025 8:04 PM CDT 0.5 mg sacubitriL-valsartan (ENTRESTO) 24-26 mg tablet 1 Tablet 1 Tablet, Oral, TWO TIMES DAILY, First dose on Thu01/04/25 at 1115, Until Discontinued, Routine, Previous Med: sacubitriL-valsartan (ENTRESTO) 24-26 mg Tablet - Orig Sig - Take 1 Tablet by mouth 2 times daily. Given 01/04/2025 8:06 PM CDT 1 Tablet Given 01/04/2025 12:19 PM CDT 1 Tablet sacubitriL-valsartan (ENTRESTO) 24-26 mg tablet 1 Tablet 1 Tablet, Oral, TWO TIMES DAILY, First dose (after last modification) on Thu01/06/25 at 0900, Until Discontinued, Routine, Previous Med: sacubitriL-valsartan (ENTRESTO) 24-26 mg Tablet - Orig Sig - Take 1 Tablet by mouth 2 times daily. Given 01/06/2025 10:42 AM CDT 1 Tablet sennosides-docusate sodium (SENNA-S) 8.6-50 mg per tablet 1 Tablet 1 Tablet, Oral, TWO TIMES DAILY, First dose on Thu01/04/25 at 1115, Until Discontinued, Routine Given 01/06/2025 10:32 AM CDT 1 Tablet Given 01/05/2025 8:50 PM CDT 1 Tablet Given 01/05/2025 8:35 AM CDT 1 Tablet sertraline (ZOLOFT) tablet 50 mg 50 mg, Oral, DAILY, First dose on Thu01/04/25 at 1115, Until Discontinued, Routine, Previous Med: sertraline (ZOLOFT) 50 mg tablet - Orig Sig - Take 50 mg by mouth daily. Given 01/06/2025 10:32 AM CDT 50 mg Given 01/05/2025 9:00 AM CDT 50 mg Given 01/04/2025 12:35 PM CDT 50 mg sodium chloride 0.9 % flush bag 25 mL 25 mL, IV, SEE ADMIN INSTRUCTIONS, Starting on Thu01/04/25 at 0636, Until Thu01/06/25 at 1708, Routine sodium chloride flush injection 10 mL 10 mL, IV, EVERY 12 HOURS (BlD), First dose on Thu01/04/25 at 0900, Until Discontinued, Routine Given 01/06/2025 9:31 AM CDT 10 mL Given 01/05/2025 8:56 PM CDT 10 mL Given 01/05/2025 8:39 AM CDT 10 mL sodium chloride flush injection 10 mL 10 mL, IV, SEE ADMIN INSTRUCTIONS, Starting on Thu01/04/25 at 0636, Until Thu01/06/25 at 1708, Routine sodium chloride flush injection 10 mL 10 mL, IV, EVERY 12 HOURS, First dose on Thu01/04/25 at 0845, Until Discontinued, Routine Given 01/06/2025 10: 31 AM CDT 10 mL Given 01/06/2025 9:19 AM CDT 10 mL Given 01/05/2025 8:56 PM CDT 10 mL sodium chloride flush injection 10 mL 10 mL, IV, EVERY 12 HOURS (BlD), First dose on Thu01/04/25 at 1115, Until Discontinued, Routine Given 01/04/2025 8:12 PM CDT 10 mL sodium chloride flush injection 20 mL 20 mL, IV, EVERY 5 MINUTES PRN, Starting on Thu01/06/25 at 0720, Until Thu01/06/25 at 1708, as needed, Routine Given 01/06/2025 8:18 AM CDT 20 mL Given 01/06/2025 7:25 AM CDT 20 mL sodium chloride flush injection 30 mL 30 mL, IV, EVERY 5 MINUTES PRN, Starting on Thu01/06/25 at 0720, Until Thu01/06/25 at 1708, as needed, Routine sodium chloride flush injection 5 mL 5 mL, IV, SEE ADMIN INSTRUCTIONS, Starting on Thu01/04/25 at 0838, Until Thu01/06/25 at 1708, Routine umeclidinium (INCRUSE ELLIPTA) 62.5 mcg/actuation inhaler 1 Puff 1 Puff, Inhalation, DAILY RESPIRATORY, First dose on Thu01/05/25 at 0800, Until Discontinued, Routine Given 01/05/2025 7:24 AM CDT 1 Puff warfarin (COUMADIN) tablet 10 mg 10 mg, Oral, DAILY LATE, First dose on Thu01/04/25 at 1700, Until Discontinued, Routine, Previous Med: warfarin (COUMADIN) 10 mg tablet - Orig Sig - Take 10 mg by mouth. She does not remember instructions about warfarin, Indication: TREATMENT for VTE/PE/DVT, Goal INR: 2 to 3 Given 01/05/2025 4:39 PM CDT 10 mg Given 01/04/2025 5:23 PM CDT 10 mg documented in this encounter Active and Recently Administered Medications Times are shown in CDT. Scheduled Medication Order 01/04/2025 01/05/2025 01/06/2025 amitriptyline (ELAVIL) tablet 25 mg 25 mg, Oral, DAILY, First dose on Thu01/04/25 at 1115, Until Discontinued, Routine, Previous Med: amitriptyline (ELAVIL) 25 mg tablet - Orig Sig - Take 25 mg by mouth daily. 1254 (Given - Provider: Diana Moreno RN) 0837 (Given - Provider: Annemarie Orellana RN) 1032 (Given - Provider: Nayely Angel LPN) aspirin (CARTER CHEWABLE) chewable tablet 81 mg 81 mg, Oral, DAILY, First dose on Thu01/04/25 at 1115, Until Discontinued, Routine, Previous Med: aspirin (CARTER CHEWABLE) 81 mg Tablet, Chewable - Orig Sig - Take 81 mg by mouth daily. 1219 (Given - Provider: Diana Moreno RN) 0835 (Given - Provider: Annemarie Orellana RN) 1032 (Given - Provider: Nayely Angel LPN) atorvastatin (LIPITOR) tablet 40 mg 40 mg, Oral, DAILY AT BEDTIME, First dose on Thu01/04/25 at 2100, Until Discontinued, Routine, Previous Med: atorvastatin (LIPITOR) 40 mg tablet - Orig Sig - Take 40 mg by mouth daily at bedtime. 2003 (Given - Provider: Blanche Beckham, MARICARMEN) 2049 (Given - Provider: SYLVIA Grimm) dextrose 5 % - sodium chloride 0.9 % infusion IV, at 40 mL/hr, SEE ADMIN INSTRUCTIONS, Starting on Thu01/04/25 at 1109, Until Thu01/06/25 at 1708, Routine dextrose 5 % in water 250 mL flush bag 25 mL 25 mL, IV, SEE ADMIN INSTRUCTIONS, Starting on Thu01/04/25 at 0636, Until Thu01/06/25 at 1708, Routine dextrose 50% (D50) syringe 12.5 Gram 12.5 Gram, IV, SEE ADMIN INSTRUCTIONS, Starting on Thu01/04/25 at 1109, Until Thu01/06/25 at 1708, Routine dextrose 50% (D50) syringe 25 Gram 25 Gram, IV, SEE ADMIN INSTRUCTIONS, Starting on Thu01/04/25 at 1109, Until Thu01/06/25 at 1708, Routine fentaNYL (PF) (SUBLIMAZE) 50 mcg/mL injection 50 mcg (COMPLETED) 50 mcg, IV, ONE TIME ONLY, 1 dose, On Thu01/04/25 at 0730, Routine 0738 (Given - Provider: Diana Moreno RN) fluticasone furoate-vilanteroL (BREO ELLIPTA) 100-25 mcg/dose inhaler 1 Puff(Linked Group 1) 1 Puff, Inhalation, DAILY RESPIRATORY, First dose on [place] 01/05/25 at 0800, Until Discontinued, Routine 0724 (Given - Provider: Annemarie Orellana RN) 0919 (Refused - Provider: Nayely Angel LPN) furosemide (LASIX) injection 80 mg (CANCELED) 80 mg, IV, TWO TIMES DAILY, 7 HOURS APART, First dose on Thu01/04/25 at 1115, Until Discontinued, Routine 1221 (Given - Provider: Diana Moreno RN) furosemide (LASIX) injection 80 mg (CANCELED) 80 mg, IV, TWO TIMES DAILY, 7 HOURS APART, First dose on Thu01/04/25 at 1700, Until Discontinued, Routine 1722 (Given - Provider: Makayla Steen RN) 0800 (Not Given - Provider: Annemarie Orellana RN - Reason: Other - See Comment - Comment: discontinued) furosemide (LASIX) tablet 80 mg 80 mg, Oral, TWO TIMES DAILY, 7 HOURS APART, First dose (after last modification) on [place] 01/05/25 at 0900, Until Discontinued, Routine 0902 (Given - Provider: Annemarie Orellana RN)1636 (Given - Provider: Annemarie Orellana RN) 1032 (Given - Provider: Nayely Angel LPN) glucagon HCL 1 mg/mL injection 1 mg 1 mg, IM, SEE ADMIN INSTRUCTIONS, Starting on Thu01/04/25 at 1109, Until Thu01/06/25 at 1708, Routine HYDROcodone-acetaminophen (NORCO) 5-325 mg per tablet 1 Tablet (COMPLETED) 1 Tablet, Oral, ONE TIME ONLY, 1 dose, On Thu01/04/25 at 1030, Routine 1017 (Given - Provider: Diana Moreno RN) insulin glargine (LANTUS) injection 45 Units 45 Units, subCUT, TWO TIMES DAILY, First dose on Thu01/04/25 at 1115, Until Discontinued, Routine 1251 (Given - Provider: Diana Moreno RN)2016 (Given - Provider: Blanche Beckham RN) 0840 (Given - Provider: Annemarie Orellana RN)2055 (Given - Provider: SYLVIA Grimm) 1031 (Given - Provider: Nayely Angel LPN) insulin lispro (HumaLOG,ADMELOG) injection 0-12 Units (CANCELED) 0-12 Units, subCUT, THREE TIMES DAILY WITH MEALS, First dose on Thu01/04/25 at 1200, Until Discontinued, Routine 1517 (Given - Provider: Makayla Steen RN)1723 (Given - Provider: Makayla Steen RN) 0722 (Given - Provider: Annemarie Orellana RN - Comment: BG 325)1206 (Given - Provider: Annemarie Orellana RN - Comment: BG of 215)1721 (Feeding Started - Provider: Annemarie Orellana RN - Comment: poc 229) insulin lispro (HumaLOG,ADMELOG) injection 0-12 Units 0-12 Units, subCUT, FOUR TIMES DAILY WITH MEALS AND AT BEDTIME, First dose (after last modification) on Thu01/06/25 at 0800, Until Discontinued, Routine 0800 (Not Given - Provider: Nayely Angel LPN - Reason: Patient off unit)1203 (Given - Provider: Nayely Angel LPN) insulin lispro (HumaLOG,ADMELOG) injection 0-6 Units (CANCELED) 0-6 Units, subCUT, DAILY AT BEDTIME, First dose on Thu01/04/25 at 2100, Until Discontinued, Routine 2100 (Not Given - Provider: Blanche Beckham, MARICARMEN - Reason: Lab results / vitals) 2053 (Given - Provider: SYLVIA Grimm - Comment: BG 272) insulin lispro (HumaLOG,ADMELOG) injection 10 Units (COMPLETED) 10 Units, subCUT, ONE TIME ONLY, 1 dose, On Thu01/05/25 at 0545, Routine 0540 (Given - Provider: Blanche Beckham, MARICARMEN) insulin lispro (HumaLOG,ADMELOG) injection 15 Units 15 Units, subCUT, THREE TIMES DAILY WITH MEALS, First dose on Thu01/04/25 at 1200, Until Discontinued, Routine 1517 (Given - Provider: Makayla Steen RN)1724 (Given - Provider: Makayla Steen, MARICARMEN) 0722 (Given - Provider: Annemarie Orellana RN)1207 (Given - Provider: Annemarie Orellana RN)1722 (Feeding Started - Provider: Annemarie Orellana RN) 0800 (Not Given - Provider: Nayely Angel LPN - Reason: Patient off unit)1203 (Given - Provider: Nayely Angel LPN) insulin lispro (HumaLOG,ADMELOG) injection 8 Units (COMPLETED) 8 Units, subCUT, ONE TIME ONLY, 1 dose, On Thu01/06/25 at 0315, Routine 0343 (Given - Provider: SYLVIA Grimm) ipratropium-albuteroL (DUONEB) 0.5 mg-3 mg(2.5 mg base)/3 mL inhalation solution 3 mL 3 mL, Inhalation, EVERY 6 HOURS RESPIRATORY, First dose on Thu01/04/25 at 1300, Until Discontinued, Routine, Previous Med: ipratropium-albuteroL (DUONEB) 0.5 mg-3 mg(2.5 mg base)/3 mL Solution for Nebulization - Orig Sig - Take 3 mL by inhalation every 4 hours as needed for Shortness of Breath. 2030 (Refused - Provider: Thu Hamilton RCP) 0200 (Refused - Provider: Thu Hamilton RCP)0700 (Refused - Provider: Arlette Fowler RCP)1300 (Refused - Provider: Arlette Fowler RCP - Comment: indicated she wanted to sleep)1938 (Refused - Provider: Barbara Jimenez RCP) 0204 (Given - Provider: Barbara Jimenez RCP)0700 (Refused - Provider: Arlette Fowler RCP)1020 (Given - Provider: Arlette Fowler RCP)1300 (Not Given - Provider: Arlette Fowler RCP - Reason: Patient off unit) isosorbide mononitrate (IMDUR) SR 24 hour tablet 30 mg 30 mg, Oral, DAILY, First dose on Thu01/04/25 at 1115, Until Discontinued, Routine, Previous Med: isosorbide mononitrate (IMDUR) 30 mg Extended Release 24 hour tablet - Orig Sig - TAKE 1 TABLET BY MOUTH EVERY DAY 1219 (Given - Provider: Diana Moreno RN) 0835 (Given - Provider: Annemarie Orellana RN) 1032 (Given - Provider: Nayeyl Angel LPN) Lidocaine 4 % topical patch 1 Patch 1 Patch, Topical, DAILY, First dose on Thu01/04/25 at 1115, Until Discontinued, Previous Med: lidocaine (LIDODERM) 5 % Adhesive Patch, Medicated - Orig Sig - Apply 1 Patch to affected area every 24 hours. 1234 (Refused - Provider: Diana Moreno RN) 0838 (Refused - Provider: Annemarie Orellana RN) 0900 (Refused - Provider: Nayely Angel LPN) meclizine (ANTIVERT) tablet 12.5 mg 12.5 mg, Oral, THREE TIMES DAILY, First dose on Thu01/04/25 at 1300, Until Discontinued, Routine, Previous Med: meclizine (ANTIVERT) 12.5 mg tablet - Orig Sig - Take 1 Tablet (12.5 mg) by mouth 3 times daily. 1219 (Given - Provider: Diana Moreno RN)1725 (Given - Provider: Makayla Steen RN) 0837 (Given - Provider: Annemarie Orellana RN)1206 (Given - Provider: Annemarie Orellana RN)1722 (Given - Provider: Annemarie Orellana RN) 0900 (Not Given - Provider: Nayely Angel LPN - Reason: Patient off unit)1202 (Given - Provider: Nayely Angel LPN) metoprolol succinate (TOPROL XL) SR 24 hour tablet 25 mg 25 mg, Oral, DAILY, First dose on Thu01/04/25 at 1115, Until Discontinued, Routine, Previous Med: metoprolol succinate (TOPROL XL) 25 mg Extended Release 24 hour tablet - Orig Sig - Take 1 Tablet (25 mg) by mouth daily. 1220 (Given - Provider: Diana Moreno RN) 0837 (Feeding Started - Provider: Annemarie Orellana RN) 1032 (Given - Provider: Nayely Angel LPN) naloxone (NARCAN) 0.4 mg/mL injection 0.1-0.4 mg 0.1-0.4 mg, IV, SEE ADMIN INSTRUCTIONS, Starting on Thu01/04/25 at 1058, Until Thu01/06/25 at 1708, Routine OLANZapine (ZyPREXA) tablet 10 mg 10 mg, Oral, DAILY AT BEDTIME, First dose on Thu01/04/25 at 2100, Until Discontinued, Routine, Previous Med: OLANZapine (ZyPREXA) 10 mg tablet - Orig Sig - Take 10 mg by mouth daily at bedtime. 2004 (Given - Provider: Blanche Beckham RN) 2048 (Given - Provider: SYLVIA Grimm) oxyCODONE (ROXICODONE) tablet 5 mg (COMPLETED) 5 mg, Oral, ONE TIME ONLY, 1 dose, On Thu01/04/25 at 2000, Routine 2004 (Given - Provider: Blanche Beckham, MARICARMEN) pantoprazole (PROTONIX) tablet 40 mg 40 mg, Oral, DAILY BEFORE BREAKFAST, First dose on Thu01/06/25 at 0730, Until Discontinued, Routine, Indication: Gastroesophageal reflux disease (GERD) 0800 (Not Given - Provider: Nayely Angel LPN - Reason: Patient off unit) potassium CHLORIDE (KLOR-CON) SR tablet 20 mEq 20 mEq, Oral, TWO TIMES DAILY WITH MEALS, First dose on Thu01/06/25 at 0800, Until Discontinued, Routine 1032 (Given - Provider: Nayely Angel LPN) potassium CHLORIDE 20 mEq/100 mL IVPB 20 mEq (COMPLETED)(Linked Group 2) 20 mEq, IV, ONE TIME ONLY, 1 dose, On Thu01/06/25 at 0315, Routine 0349 (New Bag - Provider: SYLVIA Grimm)0349 (Rate Change - Provider: SYLVIA Grimm)0354 (Paused - Provider: SYLVIA Grimm)0412 (Restarted - Provider: SYLVIA Grimm)0412 (Paused - Provider: SYLVIA Grimm)0425 (Restarted - Provider: SYLVIA Grimm)0429 (Paused - Provider: SYLVIA Grimm)0434 (Restarted - Provider: SYLVIA Grimm)0434 (Paused - Provider: SYLVIA Grimm)0435 (Paused - Provider: SLYVIA Grimm)0438 (Restarted - Provider: SYLVIA Grimm)0438 (Paused - Provider: SYLVIA Grimm)0549 (Refused - Provider: SYLVIA Grimm) potassium CHLORIDE 20 mEq/100 mL IVPB 20 mEq(Linked Group 2) 20 mEq, IV, ONE TIME ONLY, 1 dose, On Thu01/06/25 at 0515, Routine 0515 (Refused - Provider: SYLVIA Grimm) regadenoson (LEXISCAN) 0.4 mg/5 mL injection (COMPLETED) 0.4 mg, IV, INTRA-PROCEDURE ONCE, 1 dose, Starting on Thu01/06/25 at 0720, Until Thu01/06/25 at 0818, Routine 0818 (Given - Provider: Brigid Rosa (Rad Cop Breaker) Car[place] - Comment: Given by Windy Gary RN) rOPINIRole (REQUIP) tablet 0.5 mg 0.5 mg, Oral, DAILY AT BEDTIME, First dose on Thu01/04/25 at 2100, Until Discontinued, Routine, Previous Med: rOPINIRole (REQUIP) 0.5 mg tablet - Orig Sig - Take 0.5 mg by mouth daily at bedtime. 2003 (Given - Provider: Blanche Beckham RN) 2049 (Given - Provider: SYLVIA Grimm) sacubitriL-valsartan (ENTRESTO) 24-26 mg tablet 1 Tablet (CANCELED) 1 Tablet, Oral, TWO TIMES DAILY, First dose on Thu01/04/25 at 1115, Until Discontinued, Routine, Previous Med: sacubitriL-valsartan (ENTRESTO) 24-26 mg Tablet - Orig Sig - Take 1 Tablet by mouth 2 times daily. 1219 (Given - Provider: Diana Moreno RN)2005 (Given - Provider: Blanche Beckham RN) sacubitriL-valsartan (ENTRESTO) 24-26 mg tablet 1 Tablet 1 Tablet, Oral, TWO TIMES DAILY, First dose (after last modification) on Thu01/06/25 at 0900, Until Discontinued, Routine, Previous Med: sacubitriL-valsartan (ENTRESTO) 24-26 mg Tablet - Orig Sig - Take 1 Tablet by mouth 2 times daily. 1042 (Given - Provider: Nayely Angel LPN) sennosides-docusate sodium (SENNA-S) 8.6-50 mg per tablet 1 Tablet 1 Tablet, Oral, TWO TIMES DAILY, First dose on Thu01/04/25 at 1115, Until Discontinued, Routine 1219 (Given - Provider: Diana Moreno RN)2011 (Given - Provider: Blanche Beckham RN) 0835 (Given - Provider: Annemarie Orellana RN)2049 (Given - Provider: SYLVIA Grimm) 1032 (Given - Provider: Nayely Angel LPN) sertraline (ZOLOFT) tablet 50 mg 50 mg, Oral, DAILY, First dose on Thu01/04/25 at 1115, Until Discontinued, Routine, Previous Med: sertraline (ZOLOFT) 50 mg tablet - Orig Sig - Take 50 mg by mouth daily. 1235 (Given - Provider: Diana Moreno RN) 0900 (Given - Provider: Annemarie Orellana RN) 103 (Given - Provider: Nayely Angel LPN) sodium chloride 0.9 % flush bag 25 mL 25 mL, IV, SEE ADMIN INSTRUCTIONS, Starting on Thu01/04/25 at 0636, Until Thu01/06/25 at 1708, Routine sodium chloride flush injection 10 mL 10 mL, IV, EVERY 12 HOURS (BlD), First dose on Thu01/04/25 at 0900, Until Discontinued, Routine 09 (Due)2011 (Given - Provider: Blanche Beckham RN) 08 (Given - Provider: Annemarie Orellana RN)2055 (Given - Provider: SYLVIA Grimm) 0931 (Given - Provider: Nayely Angel LPN) sodium chloride flush injection 10 mL 10 mL, IV, SEE ADMIN INSTRUCTIONS, Starting on Thu01/04/25 at 0636, Until Thu01/06/25 at 1708, Routine sodium chloride flush injection 10 mL 10 mL, IV, EVERY 12 HOURS, First dose on Thu01/04/25 at 0845, Until Discontinued, Routine 2011 (Given - Provider: Blanche Beckham RN) 08 (Given - Provider: Annemarie Orellana RN)2055 (Given - Provider: SYLVIA Grimm) 0919 (Given - Provider: Nayely Angel LPN)103 (Given - Provider: Nayely Angel LPN) sodium chloride flush injection 10 mL (CANCELED) 10 mL, IV, EVERY 12 HOURS (BlD), First dose on Thu01/04/25 at 1115, Until Discontinued, Routine 111 (Due)2011 (Given - Provider: Blanche Beckham RN) sodium chloride flush injection 5 mL 5 mL, IV, SEE ADMIN INSTRUCTIONS, Starting on Thu01/04/25 at 0838, Until Thu01/06/25 at 1708, Routine umeclidinium (INCRUSE ELLIPTA) 62.5 mcg/actuation inhaler 1 Puff(Linked Group 1) 1 Puff, Inhalation, DAILY RESPIRATORY, First dose on [place] 01/05/25 at 0800, Until Discontinued, Routine 0724 (Given - Provider: Annemarie Orellana RN) 0919 (Refused - Provider: Nayely Angel LPN) warfarin (COUMADIN) tablet 10 mg 10 mg, Oral, DAILY LATE, First dose on Thu01/04/25 at 1700, Until Discontinued, Routine, Previous Med: warfarin (COUMADIN) 10 mg tablet - Orig Sig - Take 10 mg by mouth. She does not remember instructions about warfarin, Indication: TREATMENT for VTE/PE/DVT, Goal INR: 2 to 3 1723 (Given - Provider: Makayla Steen RN) 1639 (Given - Provider: Annemarie Orellana RN) PRN Medication Order 01/04/2025 01/05/2025 01/06/2025 acetaminophen (TYLENOL) tablet 650 mg 650 mg, Oral, EVERY 6 HOURS PRN, Starting on Thu01/04/25 at 1053, Until Thu01/06/25 at 1708, Pain, Mild / Temperature, ., Routine, Previous Med: acetaminophen (TYLENOL) 325 mg tablet - Orig Sig - Take 2 Tablets (650 mg) by mouth every 6 hours as needed for Pain, Mild / Temperature (.). benzonatate (TESSALON) capsule 100 mg 100 mg, Oral, EVERY 4 HOURS PRN, Starting on Thu01/04/25 at 1053, Until Thu01/06/25 at 1708, Cough, Routine, Previous Med: benzonatate (TESSALON) 100 mg capsule - Orig Sig - Take 1 Capsule (100 mg) by mouth every 4 hours as needed for Cough. bisacodyL (DULCOLAX) rectal suppository 10 mg(Linked Group 3) 10 mg, Rectal, DAILY PRN, Starting on Thu01/04/25 at 1058, Until Thu01/06/25 at 1708, Constipation, Routine HYDROcodone-acetaminophe n (NORCO) 7.5-325 mg per tablet 1 Tablet 1 Tablet, Oral, EVERY 8 HOURS PRN, Starting on Thu01/04/25 at 1051, Until Thu01/06/25 at 1708, Pain, Moderate, Pain, Severe, Routine, Previous Med: HYDROcodone-acetaminophe n (NORCO) 7.5-325 mg Tablet - Orig Sig - Take 1 Tablet by mouth every 8 hours as needed for Pain, Moderate or Pain, Severe. 1516 (Given - Provider: Makayla Steen RN) 0036 (Given - Provider: Blanche Beckham RN)0904 (Given - Provider: Annemarie Orellana RN)1636 (Given - Provider: Annemarie Orellana RN) 1042 (Given - Provider: Nayely Angel LPN) ibuprofen (MOTRIN) tablet 400 mg 400 mg, Oral, EVERY 6 HOURS PRN, Starting on Thu01/04/25 at 1702, Until Thu01/06/25 at 1708, Pain, Mild, Routine 1902 (Given - Provider: Blanche Beckham RN) 0722 (Given - Provider: Annemarie Orellana RN) magnesium HYDROXIDE (MILK OF MAGNESIA) oral suspension 30 mL(Linked Group 3) 30 mL, Oral, DAILY PRN, Starting on Thu01/04/25 at 1058, Until Thu01/06/25 at 1708, Constipation, Routine melatonin tablet 3 mg 3 mg, Oral, NIGHTLY PRN, Starting on Thu01/04/25 at 1058, Until Thu01/06/25 at 1708, Insomnia, Routine morphine 4 mg/mL injection 2 mg (CANCELED) 2 mg, IV, EVERY 4 HOURS PRN, Starting on [place] 01/05/25 at 1207, Until Thu01/05/25 at 2344, Pain (See admin instructions), Routine 1236 (Given - Provider: Annemarie Orellana RN)1815 (Given - Provider: Annemarie Orellana RN)2313 (Given - Provider: Safia Smith RN) morphine 4 mg/mL injection 2 mg 2 mg, IV, EVERY 4 HOURS PRN, Starting on Thu01/05/25 at 2342, Until Thu01/06/25 at 1708, Pain (See admin instructions), Routine 0209 (Given - Provider: SYLVIA Grimm)0616 (Given - Provider: SYLVIA Grimm)0930 (Given - Provider: Nayely Angel LPN) ondansetron (ZOFRAN) 4 mg/2 mL injection 4 mg 4 mg, IV, EVERY 6 HOURS PRN, Starting on Thu01/04/25 at 1058, Until Thu01/06/25 at 1708, Nausea/Emesis, Routine sodium chloride flush injection 20 mL 20 mL, IV, EVERY 5 MINUTES PRN, Starting on Thu01/06/25 at 0720, Until Thu01/06/25 at 1708, as needed, Routine 0725 (Given - Provider: Luzma Casas RN)0818 (Given - Provider: Brigid Rosa (Rad Cop Breaker) Carrasquillo - Comment: Given by Windy Gary RN) sodium chloride flush injection 30 mL 30 mL, IV, EVERY 5 MINUTES PRN, Starting on Thu01/06/25 at 0720, Until Thu01/06/25 at 1708, as needed, Routine Linked Groups Order Group 1: fluticasone furoate-vilanteroL (BREO ELLIPTA) 100-25 mcg/dose inhaler 1 PuffJump to med 1 Puff, Inhalation, DAILY RESPIRATORY, First dose on Thu01/05/25 at 0800, Until Discontinued, Routine And umeclidinium (INCRUSE ELLIPTA) 62.5 mcg/actuation inhaler 1 PuffJump to med 1 Puff, Inhalation, DAILY RESPIRATORY, First dose on Thu01/05/25 at 0800, Until Discontinued, Routine Group 2: potassium CHLORIDE 20 mEq/100 mL IVPB 20 mEq (COMPLETED)Jump to med 20 mEq, IV, ONE TIME ONLY, 1 dose, On Thu01/06/25 at 0315, Routine Followed by potassium CHLORIDE 20 mEq/100 mL IVPB 20 mEqJump to med 20 mEq, IV, ONE TIME ONLY, 1 dose, On Thu01/06/25 at 0515, Routine Group 3: magnesium HYDROXIDE (MILK OF MAGNESIA) oral suspension 30 mLJump to med 30 mL, Oral, DAILY PRN, Starting on Thu01/04/25 at 1058, Until Thu01/06/25 at 1708, Constipation, Routine Or bisacodyL (DULCOLAX) rectal suppository 10 mgJump to med 10 mg, Rectal, DAILY PRN, Starting on Thu01/04/25 at 1058, Until Thu01/06/25 at 1708, Constipation, Routine documented in this encounter Additional Health Concerns Active Problems Noted Date Diagnosed Date Heart Failure Problem 05/12/2024 Autogenerated Problem 12/23/2024 documented as of this encounter Care Teams Cma Relationship Specialty Start Date End Date Delta Wade MD [address] [address] PCP - General Family Practice 03/25/24 documented as of this encounter
--- OUTSIDE RECORDS SUMMARY | 2025-01-07 03:01 | XMS_ITS ---
Author Organization [facility] Address [address] [place] [address] Phone Care Team Providers Care Printing And St[employer] Supervisor Name Role Phone Delta Wade MD Primary Care Provider [phone] Active Problems Problem Noted Date Diagnosed Date Demand ischemia of myocardium 12/31/2024 Increased abdominal girth 12/31/2024 Abdominal pain, acute, right upper quadrant 12/21 Obesity (BMI 30-39.9) 12/31/2024 Acute exacerbation of chronic obstructive pulmon cheikh disease 12/28/2024 Left arm swelling 12/28/2024 Type 2 diabetes mellitus wit h hyperglycemia, with long-term current use of insulin 12/28/2024 Infiltrate of lung present on chest x-ray [...] respiratory failure 04/2024 Acute respiratory distress 07/19/2024 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
--- OUTSIDE RECORDS SUMMARY | 2025-01-07 03:01 | XMS_ITS | Clinical Summary ---
Author Organization [facility] Address [address] [place] [address] Phone Care Team Providers Care Speech Language Pathology Assistant Name Role Phone Delta Wade MD Primary Care Provider [phone] Allergies Active Allergy Reactions Criticality Noted Date [...] 11 023 Active naloxone (NARCAN) 4 mg/spray Gomer, Non-Aerosol EMERGENCY USE ONLY: Administer 1 spray [...] Active fluorouraciL (EFUDEX) 5 % Cream Active OLANZapine (ZyPREXA) 10 mg tablet Take 10 mg by mouth daily at bedtime. Active aspirin (CARTER CHEWABLE) 81 mg Tablet, Chewable Take 81 mg by mouth daily. Active atorvastatin (LIPITOR) 40 mg tablet Take 40 mg by mouth daily at bedtime. Active nitroglycerin (NITROSTAT) 0.4 mg Tablet, Sublingual [...] injection 3 times daily with meals. Active Nebulizer & Compressor For Neb Device every 4 hours as needed for Other (See Comment) (shortness of breath). 1 Each Active empagliflozin (JARDIANCE) 10 mg tablet Take 1 Tablet (10 mg) by mouth daily in the morning. 30 Tablet Active HYDROcodone-miri taminophen (NORCO) 7.5-325 mg Tablet Take 1 Tablet by mouth every 8 hours as needed for Pain, Moderate or Pain, Severe. Active acetaminophen (TYLENOL) 325 mg tablet Take 2 Tablets (650 mg) by mouth every 6 hours as needed for Pain, Mild / Temperature (.). Active zinc OXIDE-cod liver oil (DESITIN) 40 % Paste Apply to affected area see administration instructions. 57 Gram Active sertraline (ZOLOFT) 50 mg tablet Take 50 mg by mouth daily. Active rOPINIRole (REQUIP) 0.5 mg tablet Take 0.5 mg by mouth daily at bedtime. Active amitriptyline (ELAVIL) 25 mg tablet Take 25 mg by mouth daily. Active meclizine (ANTIVERT) 12.5 mg tablet Take 1 Tablet (12.5 mg) by mouth 3 times daily. 15 Tablet Active miconazole (ELOISA ESTRADA,Juliette STROUD AF) 2 % Cream Apply to affected area 2 times daily. 15 Gram Active triamcinolone acetonide (KENALOG) 0.1 % Ointment Apply to affected area 2 times daily. 15 Gram Active insulin glargine-yfgn 100 unit/mL pen syringe Inject 45 Units by subcutaneous injection 2 times daily. 15 mL Active budesonide 160 mcg-glycopyr 9 mcg-formot 4.8 mcg/actuation HFA inhaler Take 2 Puffs by inhalation 2 times daily. 60 Each 1 2024 Active levalbuterol (XOPENEX) 1.25 mg/3 mL Solution for Nebulization Take 3 mL (1.25 mg) by inhalation every 6 hours as needed for Shortness of Breath or Wheezing. 300 mL 3 Active furosemide (LASIX) 80 mg tablet Take 1 Tablet (80 mg) by mouth 2 times daily. 60 Tablet 3 Active lidocaine (LIDODERM) 5 % Adhesive Patch, Medicated Apply 1 Patch to affected area every 24 hours. 30 Patch 2024 Active metoprolol succinate (TOPROL XL) 25 mg Extended Release 24 hour tablet Take 1 Tablet (25 mg) by mouth daily. 30 Tablet 3 Active sacubitriL-vals treva (ENTRESTO) 24-26 mg Tablet Take 1 Tablet by mouth 2 times daily. 60 Tablet 3 Active warfarin (COUMADIN) 10 mg tablet Take 10 mg by mouth. She does not remember instructions about warfarin Active tiotropium-olod ateroL (STIOLTO RESPIMAT) 2.5-2.5 mcg/actuation metered inhaler Take 2 Puffs by inhalation daily. 4 Gram 11 Active ipratropium-alb uteroL (DUONEB) 0.5 mg-3 mg(2.5 mg base)/3 mL Solution for Nebulization Take 3 mL by inhalation every 4 hours as needed for Shortness of Breath. 300 mL 1 Active albuterol sulfate HFA 90 mcg/actuation aerosol inhaler Take 2 Puffs by inhalation every 6 hours as needed for Shortness of Breath. 8.5 Gram 5 Active pantoprazole (PROTONIX) 40 mg Tablet, Delayed Release (E.C.) Take 1 Tablet (40 mg) by mouth daily before breakfast. 30 Tablet Active oxygen home delivery Home Oxygen Concentrator yes at 0 L/M Rest, 2 L/M Activity, 0 L/M Sleep, Delivery Device: Nasal Cannula Portability: yes, 0 L/M Rest, 2 L/M Activity, May provide device best for patient needs(E system,home fill, conserving device) Length of Need: 99 months 1 Each Active LORazepam (ATIVAN) 0.5 mg tabletIndicatio ns:Anxiety state Take 1 Tablet (0.5 mg) by mouth every 8 hours as needed for Anxiety. 20 Tablet 2024 Discontinued potassium CHLORIDE (KLOR-CON) 10 mEq Extended Release tablet Take 1 Tablet by mouth daily. 2024 Discontinued oxygen home delivery Home Oxygen Concentrator yes at 3 L/M Rest, 3 L/M Activity, 3 L/M Sleep, Delivery Device: Nasal Cannula Portability: yes, 3 L/M Rest, L/M Activity, May provide device best for patient needs(E system,home fill, conserving device) Length of Need: 99 months 1 Each 2024 Discontinued triamcinolone acetonide (KENALOG) 0.1 % OintmentIndicat ions:Dermatitis Apply to affected area 2 times daily as needed for Other (See Comment) (rash). 10 Gram 2024 Discontinued levalbuterol (XOPENEX) 1.25 mg/3 mL Solution for Nebulization Take 1.25 mg by inhalation every 6 hours as needed for Shortness of Breath or Wheezing. 2024 Discontinued ipratropium-alb uteroL (DUONEB) 0.5 mg-3 mg(2.5 mg base)/3 mL Solution for Nebulization Take 3 mL by inhalation every 4 hours as needed for Shortness of Breath. 300 mL 1 025 2024 Discontinued metoprolol succinate (TOPROL XL) 25 mg Extended Release 24 hour tablet Take 1 Tablet (25 mg) by mouth daily. 30 Tablet 025 2024 Discontinued sacubitriL-vals treva (ENTRESTO) 24-26 mg Tablet Take 1 Tablet by mouth 2 times daily. 60 Tablet 2024 Discontinued furosemide (LASIX) 80 mg tablet Take 1 Tablet (80 mg) by mouth 2 times daily. 60 Tablet 3 2024 Discontinued budesonide 160 mcg-glycopyr 9 mcg-formot 4.8 mcg/actuation HFA inhaler Take 2 Puffs by inhalation 2 times daily. 60 Each 1 2024 Discontinued Lantus Solostar U-100 Insulin 100 unit/mL (3 mL) solution for injection Inject 40 Units by subcutaneous injection daily at bedtime. 15 mL 1 2024 Discontinued methocarbamoL (ROBAXIN) 500 mg tablet Take 1 Tablet (500 mg) by mouth every 6 hours as needed for Spasm. 20 Tablet 2024 Discontinued benzonatate (TESSALON) 100 mg capsule Take 1 Capsule (100 mg) by mouth every 4 hours as needed for Cough. 60 Capsule 1 2024 Discontinued lidocaine (LIDODERM) 5 % Adhesive Patch, Medicated Apply 1 Patch to affected area every 24 hours. 30 Patch 2024 Discontinued warfarin (COUMADIN) 10 mg tablet Take 1 Tablet (10 mg) by mouth late in the day for 14 days. 14 Tablet 2024 Discontinued cefUROXime axetil (CEFTIN) 500 mg tablet Take 1 Tablet (500 mg) by mouth every 12 hours for 7 days. 14 Tablet 025 2024 Discontinued predniSONE (DELTASONE) 20 mg tablet Take 2 Tablets (40 mg) by mouth daily with breakfast. Until followup with PCP in 3 days then thereafter per their directives 10 Tablet 025 2024 Discontinued predniSONE (DELTASONE) 20 mg tablet Take 2 Tablets (40 mg) by mouth daily for 4 days. 8 Tablet 025 2024 cefpodoxime (VANTIN) 200 mg Tablet Take 1 Tablet (200 mg) by mouth every 12 hours for 5 days. 10 Tablet 025 2024 Hospital, Clinic, or Other Facility Administered Medication Ordered Dose Route Frequency Start Date End Date Status povidone-iodine (BETADINE) 5 % ophthalmic solution 1 DropIndications:C ombined forms of age-related cataract of both eyes 1 Drop Right Eye INTRA-PROCEDUR E ONCE 12/22/2024 Active vancomycin in NS (PF) 1 mg/0.1 mL ophthalmic solution compound 0.3 mLIndications:Com bined forms of age-related cataract of both eyes 0.3 mL Right Eye INTRA-PROCEDUR E ONCE 12/22/2024 Active Artificial Tear(Gonioscop-HP M) (GONAK) 2.5 % ophthalmic solution 2 Drop 2 Drop Right Eye ONE TIME ONLY 12/16/2024 5 Ended proparacaine (OPTHAINE) 0.5 % ophthalmic solution 2 Drop 2 Drop Right Eye ONE TIME ONLY 12/16/2024 5 Ended sod borate-boric [id number] (COLLYRIUM) opthalmic solution 1 Drop 1 Drop Right Eye ONE TIME ONLY 12/16/2024 5 Ended phenylephrine 2.5 % ophthalmic solution 1 DropIndications:R ight retinal detachment 1 Drop INTRA-PROCEDUR E ONCE PRN 12/16/2024 5 Ended proparacaine (OPTHAINE) 0.5 % ophthalmic solution 1 DropIndications:R ight retinal detachment 1 Drop INTRA-PROCEDUR E ONCE PRN 12/16/2024 5 Ended tropicamide (MYDRIACYL) 1 % ophthalmic solution 1 DropIndications:R ight retinal detachment 1 Drop INTRA-PROCEDUR E ONCE PRN 12/16/2024 5 Ended polyvinyl alcohol-povidone( PF) (REFRESH CLASSIC) 1.4-0.6 % ophthalmic solution 1 DropIndications:C ombined form of age-related cataract, both eyes 1 Drop Both Eyes ONE TIME ONLY 12/22/2024 Discontinued phenylephrine 2.5 % ophthalmic solution 1 DropIndications:C ombined forms of age-related cataract of both eyes 1 Drop INTRA-PROCEDUR E ONCE PRN 12/22/2024 5 Ended proparacaine (OPTHAINE) 0.5 % ophthalmic solution 1 DropIndications:C ombined forms of age-related cataract of both eyes 1 Drop INTRA-PROCEDUR E ONCE PRN 12/22/2024 5 Ended tropicamide (MYDRIACYL) 1 % ophthalmic solution 1 DropIndications:C ombined forms of age-related cataract of both eyes 1 Drop INTRA-PROCEDUR E ONCE PRN 12/22/2024 5 Ended Active Problems Problem Noted Date Diagnosed Date [...] fu with pulmonology, discussed with patient 8 COPD with exacerbation 10/27/2024 Centrilobular emphysema 10/16/2024 [...] 06/14/2019 H/O vaginal surgery 06/14/2019 Atherosclerosis of augustine co ronary artery of augustine heart without angina pectoris 06/14/2019 Former smoker [...] Encounters Date Type Department Care Team Description 01/05/2025 Telephone [facility] [address] [place] [address] Veronika Yusuf, RN Anticoagulation 01/05/2025 Results Follow-Up [facility] Emergency Department [address] [place] [address] Ayana Roman, RN BLOOD CULTURE, BLOOD CULTURE 01/04/2025 6:42 AM CDT - 01/06/2025 3:08 PM CDT Hospital Encounter [facility] 6D Neuro Trauma [facility] [address] [place] [address] Heike Camarillo MD McGinnis, MD [place] Miles Marwan, MD Acute on chronic combined systolic and diastolic heart failure Discharge Disposition: Home or Self Care 01/04/2025 Travel 01/03/2025 6:55 PM CDT - 01/03/2025 10:03 PM CDT Emergency [facility] Emergency Department [address] [place] [phone] Quirino Cates DO COPD with exacerbation (CMS/HCC) (Primary Dx) Discharge Disposition: Home or Self Care 12/28/2024 2:19 AM CDT - 12/29/2024 12:02 PM CDT Hospital Encounter [facility] Medical Telemetry [address] [place] [phone] Tarik Albert MD Brooks, Cynthia J, DO Norman, Ryan Michael, DO Acute on chronic hypoxic respiratory failure (CMS/HCC) Discharge Disposition: Home or Self Care 12/28/2024 Travel 12/23/2024 10:38 PM CDT - 12/24/2024 5:50 AM CDT Emergency [facility] Emergency Department [address] [place] [phone] Discharge Disposition: Left without being seen 12/23/2024 Orders Only [facility] [place] [address] [phone] Kumar Ochoa MD 12/22/2024 8:00 AM CDT Office Visit [facility] [place] [address] [phone] Kumar Ochoa MD Combined forms of age-related cataract of both eyes (Primary Dx); Right retinal detachment; Non-proliferative diabetic retinopathy, left eye; Other specified disorders of iris and ciliary body 12/22/2024 7:45 AM CDT Chart Note [facility] [place] [address] [address] Kumar Ochoa MD 12/22/2024 Telephone [facility] [place] [address] [phone] Kumar Ochoa MD Surgery Talk (Called patient and left voicemail requesting a return call to schedule surgery.) 12/17/2024 5:18 PM CDT - 12/19/2024 12:58 PM CDT Hospital Encounter [facility] 4B Cardiac [address] [place] [address] Bala Prieto MD Elgayesh, MD Juan Antonio Garcias Ravi V., MD COPD with exacerbation ([facility]) Discharge Disposition: Home or Self Care 12/16/2024 12:50 PM CDT Office Visit [facility] [place] [address] [address] Eduardo Craven MD Right retinal detachment (Primary Dx); Nuclear sclerotic cataract of right eye 12/13/2024 Telephone [facility] [address] [place] [address] Veronika Yusuf, RN Anticoagulation 12/09/2024 5:59 PM CDT - 12/13/2024 12:00 PM CDT Hospital Encounter [facility] 4D Surgery Heart Lung [address] [place] [address] Mikey Rudolph MD Melton, Gregory A, DO Almond, Toni L, MD COPD exacerbation ([facility]) Discharge Disposition: Home or Self Care 12/09/2024 Travel 11/29/2024 Telephone [facility] [address] [place] [address] Veronika Yusuf RN Anticoagulation 11/28/2024 5:27 PM CDT - 12/02/2024 1:32 PM CDT Hospital Encounter [facility] 3D Medical Telemetry [address] [place] [address] Cassius Sanderson MD Abbas, MD Dinah Soto, Matilde Henry MD COPD exacerbation ([facility]/HCC) Discharge Disposition: Home or Self Care 11/27/2024 4:20 PM CDT - 11/27/2024 7:43 PM CDT Emergency [facility] Emergency Department [address] [place] [phone] Jonny Bowers MD Dyspnea, unspecified type (Primary Dx) Discharge Disposition: Home or Self Care 11/21/2024 6:34 PM CDT - 11/23/2024 1:54 PM CDT Hospital Encounter [address] Medical Surgical [address] [place] [phone] Kay Majano MD Sundaram, MD Abhay Meza Jamie, MD Kaur, MD Trini Centrilobular emphysema Discharge Disposition: Home or Self Care 11/21/2024 Travel 11/18/2024 5:04 PM CDT - 11/18/2024 9:56 PM CDT Emergency [facility] Emergency Department [address] [place] [phone] Tresa Mueller MD Multiple leg contusions, left, initial encounter (Primary Dx); Strain of left ankle, initial encounter; Anticoagulated; Contusion of multiple sites of left lower extremity, initial encounter Discharge Disposition: Home or Self Care 11/18/2024 Travel 11/15/2024 [facility] [address] [place] [phone] Veronika Yusuf, RN Anticoagulation 11/13/2024 10:17 AM CDT - 11/16/2024 1:34 PM CDT Hospital Encounter [address] Medical Surgical [address] [place] [phone] Austin Robertson MD Kakakhel, Zainab, MD [place], Curly Yung, COPD with exacerbation ([facility]) Discharge Disposition: Home or Self Care 11/12/2024 9:40 PM CDT - 11/12/2024 9:42 PM CDT Emergency [facility] Emergency Department [address] [place] [phone] Discharge Disposition: Left Against Medical Advice 11/12/2024 Travel 11/11/2024 7:54 PM CDT - 11/12/2024 12:59 AM CDT Emergency [facility] Emergency Department [address] [place] [phone] Aki Booth DO Skin abrasion (Primary Dx); Dyspnea, unspecified type Discharge Disposition: Home or Self Care 11/11/2024 Travel 11/09/2024 Telephone [facility] [place] [address] [address] Eduardo Craven MD Needs Appointment 11/08/2024 4:05 AM CDT - 11/10/2024 2:03 PM CDT Hospital Encounter [facility] 4C Medical [address] [place] [phone] Jonny Bowers MD Bandaru, Kiran Babu, MD COPD with exacerbation (CMS/HCC) Discharge Disposition: Home or Self Care 11/07/2024 11:50 AM CDT - 11/07/2024 11:59 PM CDT Hospital Encounter [facility] [address] [phone] Amb[facility], [facility] Discharge Disposition: Short [facility] 11/05/2024 4:22 PM CDT - 11/07/2024 3:04 PM CDT Hospital Encounter [facility] 4A Cardiac [address] [place] [phone] Aki Booth DO Abbas, Muhammad Khalid, MD Nagotu Kambagiri, Sharada, MD COPD exacerbation (CMS/HCC) Discharge Disposition: Home or Self Care 10/31/2024 6:02 AM CDT - 11/04/2024 4:24 PM CDT Hospital Encounter [facility] 4B Cardiac [address] [place] [address] Aggie Rivas, Danyell Diaz MD Kuppi Reddy, Madhavi, MD Siddiqi, Talha, MD Syncope Discharge Disposition: Home or Self Care 10/29/2024 11:32 PM CDT - 10/30/2024 12:54 AM CDT Emergency [facility] Emergency Department [address] [place] [phone] Discharge Disposition: Left Against Medical Advice 10/28/2024 Telephone [facility] [address] [place] [phone] Veronika Yusuf RN Anticoagulation 10/26/2024 3:29 PM CDT - 10/29/2024 12:37 PM CDT Hospital Encounter [address] [phone] Haven Joshi DO Abbas, MD Jony Soto Melissa Mae, MD COPD exacerbation ([facility]/HCC) Discharge Disposition: Home or Self Care 10/26/2024 Travel 10/20/2024 5:35 PM CDT - 10/20/2024 10:25 PM CDT Emergency [facility] Emergency Department [address] [place] [phone] Laron Hanson DO Beard, Courtney Elizabeth, MD Shortness of breath (Primary Dx); Bilateral upper abdominal pain Discharge Disposition: Home or Self Care 10/20/2024 Travel 10/16/2024 1:28 AM CDT - 10/19/2024 11:37 AM CDT Hospital Encounter [address] [place] [phone] Slim Galan DO Salana, Hari Krishna, MD Patel, Taksh, MD Acute on chronic hypoxic respiratory failure (CMS/HCC) Discharge Disposition: Home or Self Care 10/16/2024 Travel 10/13/2024 Telephone [facility] [place] [address] [facility] [address] [place] [phone] Eduardo Craven MD Appoinment request 10/12/2024 Telephone [facility] Internal Medicine [place] [address] [place] [phone] Delta Wade MD Erroneous encounter-disregard 10/10/2024 3:33 AM CDT - 10/11/2024 3:29 PM CDT Hospital Encounter [facility] 4A Cardiac [address] [place] [phone] Anita López MD Bajor, Conrad Mitchell, DO Salana, Hari Krishna, MD Acute respiratory distress Discharge Disposition: Home or Self Care 10/10/2024 Travel 10/08/2024 6:07 PM CDT - 10/08/2024 10:40 PM CDT Emergency [facility] Emergency Department [address] [place] [phone] Anderson Marie DO COPD with exacerbation (CMS/HCC) (Primary Dx) Discharge Disposition: Home or Self Care 10/08/2024 Travel 10/07/2024 Telephone [facility] [place] [address] [phone] Eduardo Craven MD Documentation Only 10/07/2024 Telephone [facility] Family Medicine [place] [address] [place] [phone] Ryann Burk MD Question; Patient Communication from Last 3 Months Immunizations Immunization Administration [...] PNEUM OCOCCAL CONJUGATE VACCINE 20-VALENT (PCV20), POLYSACCHARIDE [id number] CONJUGATE, ADJUVANT 0.5 ML (PF) IM 06/05/2023,12/02/2022,12/25/2021 [...] often do you attend [facility] or [employer] services? More than 4 times per year [...] worry about transportation for future doctor visits, picker and sorter load and unload medication, etc.? No 2024 Housing Stability Answer [...] on file Legal Sex Female 11:49 PM DELIVERY MERCHANDISER Gender Identity Not on file Sexual Orientation [...] Mass Index 37.8 01/04/2025 12:48 PM CDT Plan of Treatment Upcoming Encounters Date Type Department Care Team (Latest Contact Info) Description 01/12/2025 1:40 PM CDT Office Visit [facility] [address] [place] [address] Tresa Stockton, [facility] [address] [place] [address] 01/25/2025 12:00 PM DELIVERY MERCHANDISER Hospital Encounter [facility] [address] [place] [address] Kumar Ochoa MD [address] [address] Combined forms of age-related cataract of right eye 01/25/2025 1:00 PM DELIVERY MERCHANDISER - 01/25/2025 2:13 PM DELIVERY MERCHANDISER Surgery [facility] [address] [place] [address] Kumar Ochoa MD [address] [phone] CATARACT EXTRACTION IOL INSERTION FEMTO LASER ASSISTED LEVEL 1 01/26/2025 8:30 AM DELIVERY MERCHANDISER Office Visit [facility] [place] [address] [address] Eduardo Craven MD [address] [address] [place] [phone] 02/01/2025 9:00 AM DELIVERY MERCHANDISER Office Visit [facility] [place] [address] [phone] Paul Bustillos, OD [address] 4[address] [place] [address] 02/14/2025 3:00 PM DELIVERY MERCHANDISER Office Visit [facility] Pulmonology [address] [place] [address] [place] [address] Angeli Miles MD [address] [place] [address] Scheduled Procedures Name Priority Associated Diagnoses Date/Ti me CATARACT EXTRACTION IOL INSERTION FEMTO LASER ASSISTED LEVEL 1 Combined forms of age-related cataract of right eye Right retinal detachment 01/25/2025 1:00 PM DELIVERY MERCHANDISER PARS PLANA VITRECTOMY WITH LASER Combined forms of age-related cataract of right eye Right retinal detachment 01/25/2025 1:00 PM DELIVERY MERCHANDISER EYE PLACEMENT OF SILICONE OIL Combined forms of age-related cataract of right eye Right retinal detachment 01/25/2025 1:00 PM DELIVERY MERCHANDISER Health Maintenance Due Date Last Done Comments [...] 4, 06/23/2023, 02/26/2023, Additional history exists DIABETES HBA1C Q 6 MONTHS 05/03/20252024, 07/28/2024, 02/19/2024, Additional history exists DIABETES ANNUAL RETINAL EXAM 12/22/202504/2024, 12/22/2024, 12/22/2024, Additional history exists PAP SMEAR 01/06/2026 01/06/2023, 09/18/2021 CERVICAL CANCER SCREENING 01/07/2028 HPV/Cotest (21-29) 01/07/2028 01/06/2023 HPV/Cotest (30-65) 01/07/2028 01/06/2023 DTAP/TDAP/TD VACCINES (3 - T d or Tdap) 07/01/2032 07/01/2022, 03/24/2011 Goals Goal Patient Goal Type Associated Problems Recent Progress Patient-Stated? Author Heart Failure Goal Care Plan Heart Failure Problem No Latonya Anguiano LPN Autogenerated Goal Care Plan Autogenerated Problem No Windy Dubois Medical Devices Implanted Type Area Cardio Tech Device Identifier Shelf Expiration Date Model / Serial / Lot Dev Closure Angioseal 6fr Vip [id number] - [id number] Implanted:Qty: 1 on 03/21/2024 by Kyler Helm MD at [facility] Closure Device Right: Groin TERUMO- CARDIOVASC SYS [id number] 10/25/2024 [id number] / / [id number] 93 Imp Toe Phalinx 10 Solid Angl Sml [id number] - [id number] Implanted:Qty: 1 on 07/20/2024 by Tereso Gil DPM at [facility] Toe Left: Foot [employer] 12/29/2031 [id number] / [id number] Procedures Procedure Name Priority Date/Time Associated Diagnosis Comments POC GLUCOSE Routine 01/06/2025 11:42 AM CDT NM MYOCARD PERF IMAG SPECT MULT Routine 01/06/2025 9:24 AM CDT NM PHARMACOLOGICAL STRESS TEST Routine 01/06/2025 8:18 AM CDT HOME O2 EVAL (DESATURATION SCREEN) Pending Discharge 01/06/2025 7:00 AM CDT POC GLUCOSE Routine 01/06/2025 6:20 AM CDT LACTIC ACID Routine 01/06/2025 1:54 AM CDT CBC WITHOUT DIFFERENTIAL Routine 01/06/2025 1:54 AM CDT PROTIME-INR Routine 01/06/2025 1:54 AM CDT BASIC METABOLIC PANEL Routine 01/06/2025 1:54 AM CDT TROPONIN 6 HR, 5TH GEN Timed Study 6:12 PM CDT POC GLUCOSE Routine 01/05/2025 4:38 PM CDT D-DIMER Stat 01/05/2025 2:50 PM CDT TROPONIN BASELINE, 5TH GEN Stat 01/05/2025 2:50 PM CDT EKG 12-LEAD Stat 01/05/2025 12:18 PM CDT POC GLUCOSE Routine 01/05/2025 11:46 AM CDT POC GLUCOSE Routine 01/05/2025 7:19 AM CDT PROTIME-INR Routine 01/05/2025 4:36 AM CDT CBC WITH DIFFERENTIAL Routine 01/05/2025 4:36 AM CDT MAGNESIUM LEVEL Routine 01/05/2025 4:36 AM CDT BASIC METABOLIC PANEL Routine 01/05/2025 4:36 AM CDT LACTIC ACID Routine 01/05/2025 4:35 AM CDT POC GLUCOSE Routine 01/04/2025 8:14 PM CDT EKG 12-LEAD Stat 01/04/2025 8:11 PM CDT POC GLUCOSE Routine 01/04/2025 4:55 PM CDT POC GLUCOSE Routine 01/04/2025 3:00 PM CDT LACTIC ACID Stat 01/04/2025 2:15 PM CDT TROPONIN 6 HR, 5TH GEN Timed Study 2:15 PM CDT POC GLUCOSE Stat 01/04/2025 [...] EKG 12-LEAD Stat 01/04/2025 6:45 AM CDT BLOOD GAS ARTERIAL Stat 01/03/2025 8: 45 PM CDT XR CHEST PA AND LATERAL 2 VW Stat 01/03/2025 8:08 PM CDT RESPIRATORY PATHOGEN PCR PANEL Stat 01/03/2025 7:44 PM CDT EXTRA TUBE (BLUE) Stat 01/03/2025 7:4 3 PM CDT EXTRA TUBE Stat 01/03/2025 7:43 PM CDT BRAIN NATRIURETIC PEPTIDE, BNP OR PROBNP Stat 01/03/2025 7:43 PM CDT LACTIC ACID Stat 01/03/2025 7:43 PM CDT COMPREHENSIVE METABOLIC PANEL Stat 01/03/2025 7:43 PM CDT CBC WITH DIFFERENTIAL Stat 01/03/2025 7:43 PM CDT BLOOD CULTURE Stat 01/03/2025 7:43 PM CDT BLOOD CULTURE Stat 01/03/2025 7:43 PM CDT EKG 12-LEAD Stat 01/03/2025 7:39 PM CDT POC GLUCOSE Routine 12/29/2024 7:56 AM CDT COMPREHENSIVE METABOLIC PANEL Routine 12/29/2024 4:38 AM CDT POC GLUCOSE Routine 12/28/2024 10:13 PM CDT POC GLUCOSE Routine 12/28/2024 5:43 PM CDT US DOPPLER VENOUS ARM LEFT Stat 12/28/2024 11:52 AM CDT US ABDOMEN COMPLETE Stat 12/28/2024 9 :37 AM CDT INFLUENZA A/B, RSV AND COVID-19 PCR PANEL Stat 12/28/2024 8:54 AM CDT INFLUENZA A/B, RSV AND COVID-19 PCR PANEL Stat 12/28/2024 8:54 AM CDT POC GLUCOSE Stat 12/28/2024 8:53 AM CDT T3 FREE Stat 12/28/2024 8:50 AM CDT T4 FREE Stat 12/28/2024 8:50 AM CDT MAGNESIUM LEVEL Stat 12/28/2024 8:50 AM CDT TSH REFLEXIVE Stat 12/28/2024 8:50 AM CDT RT ASSESS AND TREAT Stat 12/28/2024 7 :32 AM CDT COPD EDUCATION RT Stat 12/28/2024 7:3 2 AM CDT XR CHEST PA OR AP 1 VW Stat 2:42 AM CDT EKG 12-LEAD Stat 12/28/2024 2:39 AM CDT RT ASSESS AND TREAT Stat 12/28/2024 2 :36 AM CDT LIPASE Stat 12/28/2024 2:31 AM CDT PROTIME-INR Stat 12/28/2024 2:31 AM CDT BRAIN NATRIURETIC PEPTIDE, BNP OR PROBNP Stat 12/28/2024 2:31 AM CDT D-DIMER Stat 12/28/2024 2:31 AM CDT TROPONIN BASELINE, 5TH GEN Stat 12/28/2024 2:31 AM CDT COMPREHENSIVE METABOLIC PANEL Stat 12/28/2024 2:31 AM CDT CBC WITH DIFFERENTIAL Stat 12/28/2024 2:31 AM CDT CRITICAL CARE Routine 12/28/2024 2:16 AM CDT IOL BIOMETRY - OU - BOTH EYES Routine 12/22/2024 9:40 AM CDT Combined form of age-related cataract, both eyes CORNEAL TOPOGRAPHY - OU - BOTH EYES Routine 12/22/2024 9:40 AM CDT Combined form of age-related cataract, both eyes AUTO-REFRACTOR & KERATOMETER OU BOTH EYES Routine 12/22/2024 9:40 AM CDT Combined form of age-related cataract, both eyes EYE DROPS Routine 12/22/2024 9:06 AM CDT Combined forms of age-related cataract of both eyes TELEMETRY REPORT 12/20/2024 3:18 PM CDT POC GLUCOSE Routine 12/19/2024 10:41 AM CDT POC GLUCOSE Routine 12/19/2024 7:01 AM CDT COMPREHENSIVE METABOLIC PANEL Routine 12/19/2024 6:24 AM CDT POC GLUCOSE Routine 12/18/2024 11:31 PM CDT POC GLUCOSE Routine 12/18/2024 7:37 PM CDT POC GLUCOSE Routine 12/18/2024 5:08 PM CDT POC GLUCOSE Routine 12/18/2024 1:32 PM CDT POC GLUCOSE Routine 12/18/2024 11:51 AM CDT XR LUMBAR SPINE 2 OR 3 VW Routine 12/18/2024 9:01 AM CDT COMPREHENSIVE METABOLIC PANEL Stat 12/18/2024 8:00 AM CDT POC GLUCOSE Routine 12/18/2024 7:56 AM CDT PROTIME-INR Routine 12/18/2024 6:42 AM CDT CBC WITH DIFFERENTIAL Stat 12/18/2024 6:42 AM CDT C. DIFFICILE DETECTION Routine 1:57 AM CDT CTA CHEST W AND/OR WO CONTRAST Stat 12/17/2024 11:55 PM CDT BLOOD GAS VENOUS Stat 12/17/2024 7:30 PM CDT DIFFERENTIAL, MANUAL Stat 12/17/2024 7:23 PM CDT TROPONIN Stat 12/17/2024 7:23 PM CDT BRAIN NATRIURETIC PEPTIDE, BNP OR PROBNP Stat 12/17/2024 7:23 PM CDT PROTIME-INR Stat 12/17/2024 7:23 PM CDT D-DIMER Stat 12/17/2024 7:23 PM CDT COMPREHENSIVE METABOLIC PANEL Stat 12/17/2024 7:23 PM CDT CBC WITH DIFFERENTIAL Stat 12/17/2024 7:23 PM CDT INSERT PERIPHERAL IV Stat 12/17/2024 7:15 PM CDT INFLUENZA A/B, RSV AND COVID-19 PCR PANEL Stat 12/17/2024 6:58 PM CDT INFLUENZA A/B, RSV AND COVID-19 PCR PANEL Stat 12/17/2024 6:58 PM CDT POC GLUCOSE Routine 12/17/2024 6:56 PM CDT XR CHEST PA OR AP 1 VW Stat 6:47 PM CDT PULSE OXIMETRY, CONTINUOUS Stat 12/17/2024 6:40 PM CDT EKG 12-LEAD Stat 12/17/2024 6:27 PM CDT EYE DROPS Routine 12/16/2024 2:39 PM CDT Right retinal detachment B-SCAN ULTRASOUND - OD - RIGHT EYE Routine 12/16/2024 2:39 PM CDT Right retinal detachment EYE DROPS Routine 12/16/2024 2:38 PM CDT Right retinal detachment OCT, RETINA - OU - BOTH EYES Routine 12/16/2024 1:53 PM CDT TELEMETRY REPORT 12/14/2024 2:38 AM CDT POC GLUCOSE Routine 12/13/2024 11:39 AM CDT [...] 2 HR, 5TH GEN Timed Study 5 10:54 PM CDT BLOOD CULTURE Stat 12/09/2024 10:54 PM CDT BLOOD CULTURE Stat 12/09/2024 10:54 PM CDT BLOOD CULTURE Stat 12/09/2024 10:50 PM CDT BLOOD CULTURE Stat 12/09/2024 10:50 [...] TROPONIN 2 HR, 5TH GEN Timed Study 07/19/202 5 8:52 PM CDT XR CHEST PA OR [...] EKG 12-LEAD Stat 10/08/2024 5:06 PM CDT LIPID PANEL Routine 02/19/2024 5:29 AM DELIVERY [facility] MICROALBUMIN/CREATININ E RATIO, RANDOM UR Routine 02/26/2023 3:01 PM DELIVERY [facility] Type 2 diabetes mellitus without complication, without long-term current use of insulin ([facility]) Wellness examination CERV/VAG CYTO SCREEN PAP W/HPV Routine 01/06/2023 12:00 AM CDT Wellness examination MAMMO DIAGNOSTIC UNI RIGHT W OR WO CAD Routine 01/24/2011 10:03 AM CDT Lump or mass in breast from Last 3 Months or Most Recently Relevant to Health Maintenance Results * (ABNORMAL) POC GLUCOSE (01/06/2025 11:42 AM CDT) Only the most recent of176 resultswithin the time period is included. GLUCOSE POC 328(H) 74 - 99 mg/dL 01/06/2025 11:42 AM CDT [facility] SPECIMEN SOURCE, GLUCOSE POC Capillary 01/06/2025 11:42 AM CDT [facility] Blood, whole 01/06/2025 11:4 2 AM CDT 01/06/2025 12:17 PM CDT us Shailesh Elaine MD POINT OF CARE TESTING Final Re sult [facility] CLIA # [id number] [address] [place] [address] * (ABNORMAL) NM MYOCARD PERF IMAG SPECT MULT (01/06/2025 9:24 AM CDT) Pathologist [facility] EJECTION FRACTION 46(A) 50 - 65 % [...] defect with LVEF 35-39%. Lm Zimmerman MD, [facility], [facility] Narrative INTERFACE SYSTEM - 01/06/2025 9:42 AM [...] axis views. All imaging was performed on [employer] and data analyzed using Splash. The resting heart rate was 96 beats per minute and peak heart rate during stress was 119 beats per minute. Blood pressure was 125/74 mmHg at rest and 131/79 mm Hg at peak stress. Blood pressure response was appropriate during the stress procedure. The resting electrocardiogram demonstrated atrial rhythm with PVC, possible old inferior SC, mild nonspecific ST-segment changes. During stress, no [...] axis views. All imaging was performed on [employer] and data analyzed using Splash. The resting heart rate was 96 beats per minute and peak heart rate during stress was 119 beats per minute. Blood pressure was 125/74 mmHg at rest and 131/79 mm Hg at peak stress. Blood pressure response was appropriate during the stress procedure. The resting electrocardiogram demonstrated atrial rhythm with PVC, possible old inferior SC, mild nonspecific ST-segment changes. During stress, no [...] defect with LVEF 35-39%. Lm Zimmerman MD, FREDA, NANCY us Shailesh Elaine MD NM ORDERABLES Final Result [...] defect with LVEF 35-39%. Lm Zimmerman MD, NANCY BARBA Narrative INTERFACE SYSTEM - 01/06/2025 9:42 AM [...] axis views. All imaging was performed on [employer] and data analyzed using Splash. The resting heart rate was 96 beats per minute and peak heart rate during stress was 119 beats per minute. Blood pressure was 125/74 mmHg at rest and 131/79 mm Hg at peak stress. Blood pressure response was appropriate during the stress procedure. The resting electrocardiogram demonstrated atrial rhythm with PVC, possible old inferior SC, mild nonspecific ST-segment changes. During stress, no [...] axis views. All imaging was performed on [employer] and data analyzed using Splash. The resting heart rate was 96 beats per minute and peak heart rate during stress was 119 beats per minute. Blood pressure was 125/74 mmHg at rest and 131/79 mm Hg at peak stress. Blood pressure response was appropriate during the stress procedure. The resting electrocardiogram demonstrated atrial rhythm with PVC, possible old inferior SC, mild nonspecific ST-segment changes. During stress, no [...] with LVEF 35-39%. Lm Zimmerman MD, FAC, [facility] Shailesh Elaine MD NM ORDERABLES Final Result INTERFACE SYSTEM Refer to clinic/hospital department * (ABNORMAL) LACTIC ACID (01/06/2025 1:54 AM CDT) Only the most recent of11 resultswithin the time period is included. LACTIC ACID 2.2(H) <=2.0 mmol/L 01/06/2025 2:24 AM CDT [facility] Blood Venipuncture / Unknown 01/06/2025 1:54 AM CDT 01/06/2025 2:00 AM CDT Shailesh Elaine MD CHEMISTRY ORDERABLES Final Res ult Performing Organization Address [facility] [[email or web address]] Co de Phone Number [facility] CLIA # [id number] [address] [address] * (ABNORMAL) PROTIME-INR (01/06/2025 1:54 AM CDT) Only the most recent of36 resultswithin the time period is included. [facility] PROTIME 20.4(H) 12.7 - 14.9 Seconds 01/06/2025 2:13 AM CDT [facility] INR 1.7(H) 0.8 - 1.2 01/06/2025 2:13 AM CDT [facility] Blood Venipuncture / Unknown 01/06/2025 1:54 AM CDT 01/06/2025 1:58 AM CDT Narrative [facility] - 01/06/2025 2:13 AM CDT Expected Values [...] ORDERABLES Fi nal Result Performing Organization Address [facility] [[email or web address] Co de Phone Number [facility] CLIA # [id number] [address] [id number] * (ABNORMAL) CBC WITHOUT DIFFERENTIAL (01/06/2025 1:54 AM CDT) Only the most recent of9 resultswithin the time period is included. [facility] WBC 7.0 4.8 - 10.8 K/uL 01/06/2025 2:07 AM T [facility] NRBCS 2(H) <1 % 01/06/2025 2:07 AM [facility] RBC 3.67(L) 4.20 - 5.40 M/uL 01/06/2025 2:07 AM T [facility] HEMOGLOBIN 10.7(L) 12.0 - 16.0 g/dL 01/06/2025 2:07 AM T [facility] HEMATOCRIT 34.8(L) 36.0 - 46.0 % 01/06/2025 2:07 AM T [facility] MCV 94.8 84.0 - 103.0 fL 01/06/2025 2:07 AM [facility] MCH 29.2 27.0 - 34.0 pg 01/06/2025 2:07 AM [facility] MCHC 30.7 30.0 - 35.0 g/dL 01/06/2025 2:07 AM [facility] PLATELETS 172 140 - 440 K/uL 01/06/2025 2:07 AM [facility] MPV 11.0 8.9 - 12.8 fL 01/06/2025 2:07 AM [facility] RDW 18.8(H) 11.0 - 14.5 % 01/06/2025 2:07 AM [facility] RDW-STDEV 66.2(H) 37.0 - 54.0 fL 01/06/2025 2:07 AM [facility] Blood Venipuncture / Unknown 01/06/2025 1:54 AM CDT 01/06/2025 1:58 AM CDT us Shailesh Elaine MD HEMATOLOGY ORDERABLES Final Re sult [facility] CLIA # [id number] [address] [address] [place] [address] * (ABNORMAL) BASIC METABOLIC PANEL (01/06/2025 1:54 AM CDT) Only the most recent of21 resultswithin the time period is included. SODIUM 140 136 - 145 mmol/L 01/06/2025 2:29 AM CDT [facility] POTASSIUM 3.0(L) 3.5 - 5.1 mmol/L 01/06/2025 2:29 AM CDT [facility] CHLORIDE 101 98 - 107 mmol/L 01/06/2025 2:29 AM T [facility] CO2 27 22 - 29 mmol/L 01/06/2025 2:29 AM T [facility] CALCIUM 8.9 8.6 - 10.0 mg/dL 01/06/2025 2:29 AM T [facility] BUN 22(H) 6 - 20 mg/dL 01/06/2025 2:29 AM T [facility] CREATININE 0.58 0.51 - 0.95 mg/dL 01/06/2025 2:29 AM T [facility] GLUCOSE 348(H) 74 - 99 mg/dL 01/06/2025 2:29 AM T [facility] GFR >60 >=60 mL/min/1.7 3 sq meter 01/06/2025 2:29 AM [facility] Comment:eGFR calculated with 2020 CKD-EPI equation. Vegetarian diet, extremely high or low muscle mass, and may affect results. Cystatin C with Glomerular Filtration Rate is a suitable alternative for these patients. ANION GAP 12 9 - 20 mmol/L 01/06/2025 2:29 AM T [facility] Blood Venipuncture / Unknown 01/06/2025 1:54 AM CDT 01/06/2025 1:58 AM CDT us Nani Borges MD CHEMISTRY ORDERABLES Fin al Result [facility] CLIA # [id number] [address] [address] * (ABNORMAL) TROPONIN 6 HR, 5TH GEN (01/05/2025 6:12 PM CDT) Only the most recent of8 resultswithin the time period is included. TROPONIN T, 6 HR 5TH GEN 23(H) <11 ng/L 01/05/2025 7:23 PM CDT [facility] DELTA 6HR TROPONIN T 3 See Interp. 01/05/2025 7:23 PM CDT [facility] Blood Venipuncture / Unknown 01/05/2025 6:12 PM CDT 01/05/2025 6:35 PM CDT [facility] - 01/05/2025 7:23 PM CDT Troponin elevated. Delta indeterminate. Shailesh Elaine MD CHEMISTRY ORDERABLES Final Res ult Performing Organization Address [facility] [[email or web address] Co de Phone Number [facility] CLIA # [id number] [address] [place] [address] * (ABNORMAL) TROPONIN BASELINE, 5TH GEN (01/05/2025 2:50 PM CDT) Only the most recent of15 resultswithin the time period is included. TROPONIN T, BASELINE 5TH GEN 20(H) <=10 ng/L 01/05/2025 3:47 PM CDT [facility] Blood Venipuncture / Unknown 01/05/2025 2:50 PM CDT 01/05/2025 2:59 PM CDT [facility] - 01/05/2025 3:47 PM CDT Troponin elevated. Shailesh Elaine MD CHEMISTRY ORDERABLES Final Res ult Performing Organization Address City/[facility] de Phone Number [facility] CLIA # [id number] [facility] [address] [place] [address] * D-DIMER (01/05/2025 2:50 PM CDT) Only the most recent of6 resultswithin the time period is included. D-DIMER QUANT 0.50 0.00 - 0.50 ug/mL FEU 01/05/2025 3:43 PM CDT [facility] Blood Venipuncture / Unknown 01/05/2025 2:50 PM CDT 01/05/2025 2:59 PM CDT Narrative [facility] - 01/05/2025 3:43 PM CDT D-Dimer assay [...] ORDERABLES Final Re sult Performing Organization Address [facility] [[email or web address]] Co de Phone Number [facility] CLIA # [id number] [address] [address] * EKG 12-LEAD (01/05/2025 12:18 PM CDT) Only the most recent of25 resultswithin the time period is included. 01/05/2025 12:1 8 PM CDT [employer] [facility] - 01/05/2025 3:[address]T [address] [address] Test Date: 2025-01-05 Pat Name: LE DIAZ Department: 12 Room: [address] [place] [address] Gender: Female [employer] Turner: [id number] : 1965 Requested By: Order Number: [id number] Reading MD: Mana Moore Measurements Intervals Ewing Rate: 107 P: 0 AR: 118 QRS: 56 QRSD: 84 T: -66 QT: 344 QTc: 459 Interpretive Statements Sinus tachycardia Possible Inferior infarct, age undetermined Abnormal ECG Electronically Signed On 01-05-2025 15:59:48 CDT by Mana Moore Procedure Note Mana Moore MD - 01/05/[address] [address] Test Date: 2025-01-05 Pat Name: LE DIAZ Department: 12 Room: [address] [place] [address] Gender: Female [employer] Turner: [id number] : 1965 Requested By: Order Number: [id number] Reading MD: Mana Moore Measurements Intervals Ewing Rate: 107 P: 0 AR: 118 QRS: 56 QRSD: 84 T: -66 QT: 344 QTc: 459 Interpretive Statements Sinus tachycardia Possible Inferior infarct, age undetermined Abnormal ECG Electronically Signed On 01-05-2025 15:59:48 CDT by Mana Moore us Shailesh Elaine MD ECG ORDERABLES Final Result INTERFACE SYSTEM Refer to clinic/hospital department * (ABNORMAL) CBC WITH DIFFERENTIAL (01/05/2025 4:36 AM CDT) Only the most recent of39 resultswithin the time period is included. WBC 6.2 4.8 - 10.8 K/uL 01/05/2025 4:54 AM CDT [facility] NRBCS 2(H) <1 % 01/05/2025 4:54 AM CDT [facility] RBC 3.61(L) 4.20 - 5.40 M/uL 01/05/2025 4:54 AM [facility] HEMOGLOBIN 10.4(L) 12.0 - 16.0 g/dL 01/05/2025 4:54 AM [facility] HEMATOCRIT 34.4(L) 36.0 - 46.0 % 01/05/2025 4:54 AM [facility] MCV 95.3 84.0 - 103.0 fL 01/05/2025 4:54 AM [facility] MCH 28.8 27.0 - 34.0 pg 01/05/2025 4:54 AM [facility] MCHC 30.2 30.0 - 35.0 g/dL 01/05/2025 4:54 AM [facility] PLATELETS 174 140 - 440 K/uL 01/05/2025 4:54 AM [facility] MPV 11.6 8.9 - 12.8 fL 01/05/2025 4:54 AM [facility] RDW 18.9(H) 11.0 - 14.5 % 01/05/2025 4:54 AM [facility] RDW-STDEV 66.4(H) 37.0 - 54.0 fL 01/05/2025 4:54 AM [facility] NEUTROPHILS 56 42 - 75 % 01/05/2025 4:54 AM [facility] LYMPHOCYTES 29 24 - 44 % 01/05/2025 4:54 AM [facility] MONOCYTES 14(H) 2 - 10 % 01/05/2025 4:54 AM [facility] EOSINOPHILS 1 0 - 7 % 01/05/2025 4:54 AM [facility] BASOPHILS 1 0 - 1 % 01/05/2025 4:54 AM [facility] IMMATURE GRANULOCYTES 1 0 - 2 % 01/05/2025 4:54 AM [facility] NEUTROPHIL ABSOLUTE 3.42 2.00 - 8.00 K/uL 01/05/2025 4:54 AM CDT [facility] LYMPHOCYTE ABSOLUTE 1.78 1.20 - 4.00 K/uL 01/05/2025 4:54 AM CDT [facility] MONOCYTE ABSOLUTE 0.84(H) 0.10 - 0.60 K/uL 01/05/2025 4:54 AM CDT [facility] EOSINOPHIL ABSOLUTE 0.04 0.00 - 0.70 K/uL 01/05/2025 4:54 AM CDT [facility] BASOPHILS ABSOLUTE 0.03 0.00 - 0.20 K/uL 01/05/2025 4:54 AM CDT [facility] IMMATURE GRANULOCYTES ABSOLUTE 0.05 0.00 - 0.10 K/uL 01/05/2025 4:54 AM CDT [facility] SMEAR REVIEWED: NN - No Action Needed 01/05/2025 4:54 AM CDT [facility] Blood Venipuncture / Unknown 01/05/2025 4:36 AM CDT 01/05/2025 4:43 AM CDT us Nani Borges MD HEMATOLOGY ORDERABLES Fi nal Result Performing Organization Address City/[facility] [[email or web address]] Co de Phone Number [facility] CLIA # [id number] [address] [place] [address] * MAGNESIUM LEVEL (01/05/2025 4:36 AM CDT) Only the most recent of10 resultswithin the time period is included. MAGNESIUM 1.9 1.6 - 2.6 mg/dL 01/05/2025 5:20 AM CDT [facility] Blood Venipuncture / Unknown 01/05/2025 4:36 AM CDT 01/05/2025 4:42 AM CDT Nani Borges MD CHEMISTRY ORDERABLES Fin al Result [facility] CLIA # [id number] [address] [address] [place], [place] [id number] * (ABNORMAL) TROPONIN 2 HR, 5TH GEN (01/04/2025 10:52 AM CDT) Only the most recent of11 resultswithin the time period is included. TROPONIN T, 2 HR 5TH GEN 15(H) <=10 ng/L 01/04/2025 11:31 AM CDT [facility] DELTA 2HR TROPONIN T 1 See Interp. 01/04/2025 11:31 AM CDT [facility] Blood Venipuncture / Unknown 01/04/2025 10:52 AM CDT 01/04/2025 10:54 AM CDT Narrative [facility] - 01/04/2025 11:31 AM CDT Troponin elevated. Delta not changing. Delay in collection of timed specimen beyond recommended collection interval. Results must be interpreted in clinical context. us Nani Borges MD CHEMISTRY ORDERABLES Fin al Result Performing Organization Address [facility] de Phone Number [facility] CLIA # [id number] [address] [address] * INSERT PERIPHERAL IV (01/04/2025 8:35 AM CDT) Only the most recent of2 resultswithin the time period is included. Narrative [facility] CARDIOLOGY [facility] - 01/04/2025 8:35 AM CDT Tasha Glynn RN 01/04/2025 9:14 AM VASCULAR ACCESS NOTE Midline PATIENT NAME: Le Diaz DATE OF : 1965 CSN: [id number] DATE: 01/04/2025 Room: 03 Admit Date: 01/04/2025 [...] Removal Interventions: Inserted Catheter Length (cm) 10 01/04/25824 Midline Catheter (WDL) WDL 01/04/25824 *Blood [...] MD IV THERAPY ORDERABLES Final Resu lt [facility] [id number] [address] [facility] [address] [place] [address], [place] [phone] * (ABNORMAL) COMPREHENSIVE METABOLIC PANEL (01/04/2025 8:24 AM CDT) Only the most recent of33 resultswithin the time period is included. SODIUM 137 136 - 145 mmol/L 01/04/2025 9:11 AM [facility] POTASSIUM 4.7 3.5 - 5.1 mmol/L 01/04/2025 9:11 AM T [facility] CHLORIDE 101 98 - 107 mmol/L 01/04/2025 9:11 AM [facility] CO2 21(L) 22 - 29 mmol/L 01/04/2025 9:11 AM [facility] CALCIUM 9.8 8.6 - 10.0 mg/dL 01/04/2025 9:11 AM T [facility] BUN 16 6 - 20 mg/dL 01/04/2025 9:11 AM T [facility] CREATININE 0.53 0.51 - 0.95 mg/dL 01/04/2025 9:11 AM [facility] GLUCOSE 468(HH) 74 - 99 mg/dL 01/04/2025 9:11 AM [facility] TOTAL PROTEIN 7.0 6.4 - 8.3 g/dL 01/04/2025 9:11 AM T [facility] ALBUMIN 3.8 3.5 - 5.2 g/dL 01/04/2025 9:11 AM [facility] BILIRUBIN TOTAL 0.2 0.0 - 1.0 mg/dL 01/04/2025 9:11 AM T [facility] ALKALINE PHOSPHATASE 159(H) 35 - 104 U/L 01/04/2025 9:11 AM T [facility] AST 33 10 - 35 U/L 01/04/2025 9:11 AM T [facility] ALT 33 <=35 U/L 01/04/2025 9:11 AM [facility] GFR >60 >=60 mL/min/1. 73 sq meter 01/04/2025 9:11 AM [facility] Comment:eGFR calculated with 2020 CKD-EPI equation. Vegetarian diet, extremely high or low muscle mass, and may affect results. Cystatin C with Glomerular Filtration Rate is a suitable alternative for these patients. ANION GAP 15 9 - 20 mmol/L 01/04/2025 9:11 AM [facility] Blood Venipuncture / Unknown 01/04/2025 8:24 AM CDT 01/04/2025 8:29 AM CDT us Heike Camarillo MD CHEMISTRY ORDERABLES Final Resul t [facility] CLIA # [id number] [address] [place] [id number] * (ABNORMAL) POC LACTIC ACID (01/04/2025 7:43 AM CDT) Only the most recent of2 resultswithin the time period is included. LACTIC ACID POC 5.3(HH) <=2.0 mmol/L 01/04/2025 7:43 AM T [facility] SPECIMEN SOURCE, GASES POC Venous 01/04/2025 7:43 AM CDT [facility] CRITICALTO POC 01/04/2025 7:43 AM CDT [facility] NAME POC [id number] 01/04/2025 7:43 AM CDT [facility] RESULTS POC Y 01/04/2025 7:43 AM CDT [facility] TIME POC 744 01/04/2025 7:43 AM CDT [facility] PUNC SITE POC No Charge 01/04/2025 7:43 AM CDT [facility] Blood 01/04/2025 7:43 AM CDT 01/04/2025 7:45 AM CDT [facility] - 01/04/2025 7:43 AM CDT References ranges displayed are for Arterial samples. us Heike Camarillo MD POINT OF CARE TESTING Final Resu lt [facility] CLIA # [id number] [address] [place] [address] [id number] * (ABNORMAL) BLOOD GAS VENOUS (01/04/2025 7:43 AM CDT) Only the most recent of8 resultswithin the time period is included. PH BLOOD POC 7.35 7.32 - 7.43 01/04/2025 7:43 AM CDT [facility] PCO2 POC 37(L) 38 - 50 mm Hg 01/04/2025 7:43 AM T [facility] PO2 POC 56(H) 25 - 40 mm Hg 01/04/2025 7:43 AM T [facility] HCO3 (CALC) POC 20(L) 22 - 29 mmol/L 01/04/2025 7:43 AM T [facility] HEMOGLOBIN POC 11.7(L) 12.0 - 18.0 g/dL 01/04/2025 7:43 AM T [facility] BASE EXCESS POC -5(L) -2 - 3 mmol/L 01/04/2025 7:43 AM [facility] O2 SATURATION POC 88(H) 40 - 70 % 01/04/2025 7:43 AM [facility] SODIUM POC 134(L) 135 - 145 mmol/L 01/04/2025 7:43 AM [facility] POTASSIUM POC 4.8 3.5 - 4.9 mmol/L 01/04/2025 7:43 AM [facility] HEMATOCRIT POC 35(L) 38 - 51 % 01/04/2025 7:43 AM [facility] PH TEMP CORRECT 7.35 7.32 - 7.43 01/05/20 7:43 AM [facility] PCO2 TEMP CORRECT 37(L) 38 - 50 mm Hg 01/04/2025 7:43 AM [facility] PO2 TEMP CORRECT 56(H) 25 - 40 mm Hg 01/04/2025 7:43 AM [facility] SPECIMEN SOURCE, GASES POC Venous 01/04/2025 7:43 AM [facility] CRITICALTO POC 01/04/2025 7:43 AM [facility] NAME POC [id number] 01/04/2025 7:43 AM [facility] RESULTS POC Y 01/04/2025 7:43 AM [facility] TIME POC 744 01/04/2025 7:43 AM [facility] CALCIUM IONIZED POC 5.1 4.8 - 5.2 mg/dL 01/04/2025 7:43 AM [facility] TCO2 (CALC) POC 22 22 - 26 mmol/L 01/04/2025 7:43 AM [facility] PUNC SITE POC No Charge 01/04/2025 7:43 AM [facility] PATIENT'S TEMPERATURE POC 37.0 degrees 01/04/2025 7:43 AM [facility] Blood, venous 01/04/2025 7:4 3 AM CDT 01/04/2025 7:45 AM CDT Heike Camarillo MD ABG ORDERABLES Final Result [facility] # [id number] [address] [place] [address] * XR CHEST PA OR AP 1 VW (01/04/2025 7:23 AM CDT) Only the most recent of19 [...] pneumothorax. Elevated right hemidiaphragm. Cervical fixation plate. us Heike Camarillo MD DIAGNOSTIC IMAGING ORDERABLES Fi nal Result * (ABNORMAL) BRAIN NATRIURETIC PEPTIDE, BNP OR PROBNP (01/04/2025 7:12 AM CDT) Only the most recent of18 resultswithin the time period is included. Pathologist [facility] PROBNP, N TERMINAL 703(H) 0 - 125 pg/mL 01/04/2025 7:49 AM CDT [facility] Comment: INTERPRETIVE COMMENT based on diagnosis: [...] 7:12 AM CDT 01/04/2025 7:15 AM CDT us Heike Camarillo MD CHEMISTRY ORDERABLES Final Resul t [facility] CLIA # [id number] [address] [place] [address] * (ABNORMAL) BLOOD GAS ARTERIAL (01/03/2025 8:45 PM CDT) Only the most recent of6 resultswithin the time period is included. [facility] PH BLOOD POC 7.38 7.35 - 7.45 01/03/2025 8:45 PM CDT [facility] PCO2 POC 48(H) 35 - 45 mm Hg 01/03/2025 8:45 PM CDT [facility] PO2 POC 39(LL) 80 - 105 mm Hg 01/03/2025 8:45 PM CDT [facility] HCO3 (CALC) POC 28(H) 22 - 26 mmol/L 01/03/2025 8:45 PM CDT [facility] HEMOGLOBIN POC 11.6(L) 12.0 - 18.0 g/dL 01/03/2025 8:45 PM [facility] BASE EXCESS POC 3 -2 - 3 mmol/L 01/03/2025 8:45 PM [facility] O2 SATURATION POC 67(L) 95 - 98 % 01/03/2025 8:45 PM [facility] SODIUM POC 135(L) 138 - 146 mmol/L 01/03/2025 8:45 PM [facility] POTASSIUM POC 3.6 3.5 - 4.9 mmol/L 01/03/2025 8:45 PM [facility] HEMATOCRIT POC 35(L) 38 - 51 % 01/03/2025 8:45 PM [facility] PH TEMP CORRECT 7.38 7.35 - 7.45 01/03/2025 8:45 PM [facility] PCO2 TEMP CORRECT 48(H) 35 - 45 mm Hg 01/03/2025 8:45 PM [facility] PO2 TEMP CORRECT 39(LL) 80 - 105 mm Hg 01/03/2025 8:45 PM [facility] SPECIMEN SOURCE, GASES POC Arterial 01/03/2025 8:45 PM [facility] CRITICALTO POC QUIRINO LOAN DO 01/03/2025 8:45 PM [facility] NAME POC [id number]$ 01/03/2025 8:45 PM [facility] RESULTS POC Y 01/03/2025 8:45 PM [facility] TIME POC 204401/03/2025 8:45 PM [facility] CALCIUM IONIZED POC 4.8 4.8 - 5.2 mg/dL 01/03/2025 8:45 PM [facility] TCO2 (CALC) POC 30(H) 23 - 27 mmol/L 01/03/2025 8:45 PM [facility] PUNC SITE POC No Charge 01/03/2025 8:45 PM [facility] PATIENT'S TEMPERATURE POC 37.0 degrees 01/03/2025 8:45 PM CDT [facility] Blood, arterial 01/03/2025 8 :45 PM CDT 01/03/2025 8:51 PM CDT us Quirino Loan DO ABG ORDERABLES Final Result [facility] CLIA # [id number] [address] [facility] [place] [address] * XR CHEST PA AND LATERAL 2 [...] osseous structures appear grossly intact. us Quirino Loan DO DIAGNOSTIC IMAGING ORDERABLES F inal Result * RESPIRATORY PATHOGEN PCR PANEL (01/03/2025 7:44 PM CDT) Only the most recent of7 resultswithin the time period is included. Pathologist [facility] Respiratory Pathogen PCR Panel NOT DETECTED No respiratory pathogen nucleic acids detected. 01/03/2025 8:52 PM CDT [facility] COVID-19 PCR NOT DETECTED Not Detected 01/03/2025 8:52 PM CDT [facility] Upper Respiratory ENTIRE NASOPHARYNX / Unknown Collection / Unknown 01/03/2025 7:44 PM CDT 01/03/2025 7:50 PM CDT [facility] - 01/03/2025 8:52 PM CDT The Film [...] Bordetella parapertussis Chlamydophila pneumoniae Mycoplasma pneumoniae us Quirino Loan DO MICROBIOLOGY - GENERAL ORDERABL ES Final Result Performing Organization Address [facility] [[email or web address]] Co de Phone Number [facility] CLIA # [id number] [facility] [address] * EXTRA TUBE (BLUE) (01/03/2025 7:43 PM CDT) Blood Venipuncture / Unknown 01/03/2025 7:43 PM CDT 01/03/2025 7:53 PM CDT us Quirino Loan DO HEMATOLOGY ORDERABLES Final Res ult Performing Organization Address [facility] [[email or web address]] Co de Phone Number [facility] CLIA # [id number] [address] [place] [address] * US DOPPLER VENOUS ARM LEFT (12/28/2024 11:52 AM CDT) Anatomical Region Laterality Modality Upper Extremity Ultrasound 12/28/2024 11:3 9 AM CDT Narrative 12/28/2024 3:22 PM CDT [facility] Noninvasive Vascular Laboratory [address] [place] [address] Noninvasive Vascular Lab Venous Exam Limited Upper Extremity Duplex Patient: Le Diaz Study ID: US DOPPLER VENOU Gender: F : 1965 Age: 59 Room: Height: Weight: BSA: Pt status: Emergency Study Date: 12/28/2024 Study Time: 11:39:58 AM BSA: Ordering: Luzma Romero Interpreting:Prince Luana [employer] Member: ROCHELLE Indications: Extremity Edema. Summary Impression: 1. Study demonstrates superficial vein thrombosis involving the the left basilic vein and the left cephalic vein. 2. No evidence of deep vein thrombosis involving the veins of the left upper extremity and right subclavian vein. 3. No prior study available for comparison. Study data: Left upper extremity venous duplex. Doppler flow study including spectral analysis, color and hollingsworth scale imaging. Location: Emergency department. Patient status: Emergency department. Study status: STAT. Procedure: A vascular evaluation was performed. Image quality was good. Incidental findings: Soft tissue edema is noted incidentally on the left. If clinically indicated, further follow-up is recommended. Venous flow and imaging: - Left internal jugular Patent; Normal phasicity; spontaneous; compressible - Left subclavian Patent; Normal phasicity; spontaneous; compressible; normal augmentation - Left axillary Patent; Normal phasicity; spontaneous; compressible; normal augmentation - Left brachial Patent; Normal phasicity; spontaneous; compressible; normal augmentation - Left cephalic Thrombosed; Noncompressible - Left basilic Partially thrombosed; Partially compressible - Left radial Patent; Compressible - Left ulnar Patent; Compressible - Right subclavian Patent; Normal phasicity; spontaneous; compressible CRITICAL FINDINGS - Reported to: MARICARMEN Barrios - Read back and verified. - 12/28/2024 - 1200 - SVT cephalic and basilic vein [facility] is accredited with the [facility] Commission for the Accreditation of Vascular Laboratories (ICAVL) Prepared and Electronically Authenticated Prince Luana Confirmed 12/28/2024 15:22 Procedure Note Prince Craft MD - 12/28/2024 [facility] Noninvasive Vascular Laboratory [address] [place] [id number] Noninvasive Vascular Lab Venous Exam Limited Upper Extremity Duplex Patient: Obey Le Page Study ID: US DOPPLER VENOU Gender: F : 1965 Age: 59 Room: Height: Weight: BSA: Pt status: Emergency Study Date: 12/28/2024 Study Time: 11:39:58 AM BSA: Ordering: Luzma Romero Interpreting:Prince Luana [employer] Member: ROCHELLE Indications: Extremity Edema. Summary Impression: 1. Study demonstrates superficial vein thrombosis involving the the left basilic vein and the left cephalic vein. 2. No evidence of deep vein thrombosis involving the veins of the leftupper extremity and right subclavian vein. 3. No prior study available for comparison. Study data: Left upper extremity venous duplex. Doppler flow study including spectral analysis, color and hollingsworth scale imaging. Location: Emergency department. Patient status: Emergency department. Study status: STAT. Procedure: A vascular evaluation was performed. Imagequality was good. Incidental findings: Soft tissue edema is noted incidentally on the left.If clinically indicated, further follow-up is recommended. Venous flow and imaging: - Left internal jugular Patent; Normal phasicity; spontaneous;compressible - Left subclavian Patent; Normal phasicity; spontaneous; compressible;normal augmentation - Left axillary Patent; Normal phasicity; spontaneous; compressible;normal augmentation - Left brachial Patent; Normal phasicity; spontaneous; compressible;normal augmentation - Left cephalic Thrombosed; Noncompressible - Left basilic Partially thrombosed; Partially compressible - Left radial Patent; Compressible - Left ulnar Patent; Compressible - Right subclavian Patent; Normal phasicity; spontaneous; compressible CRITICAL FINDINGS - Reported to: MARICARMEN Barrios - Read back and verified. - 12/28/2024 - 1200 - SVT cephalic and basilic vein [facility] is accredited with the[facility] Commission for the Accreditation of Vascular Laboratories (ICAVL) Prepared and Electronically Authenticated Prince Luana Confirmed 12/28/2024 15:22 us Luzma Romero DO US ORDERABLES Final Result * US ABDOMEN COMPLETE (12/28/2024 9:37 AM CDT) Anatomical Region Laterality Modality Abdomen Ultrasound 12/28/2024 9:37 AM CDT Impressions 12/28/2024 10:10 AM CDT IMPRESSION: Fatty infiltration within the liver. A few structures are obscured by overlying bowel gas. Otherwise unremarkable exam. Narrative 12/28/2024 10:10 AM CDT Exam: US ABDOMEN COMPLETE Date and time of exam: 12/28/2024 9:37 AM Reason for exam: Respiratory distress; COPD with exacerbation (CMS/HCC); Left arm swelling. Findings: Liver: Diffuse increased echogenicity within the liver, consistent with fatty infiltration. Gallbladder: Unremarkable Common Bile Duct: 5.1 mm in diameter. Pancreas: Mostly obscured by bowel gas Spleen: 9.9 x 12.7 x 3.9 cm. Unremarkable Right Kidney: 11.9 cm in length. Unremarkable Left Kidney: cm in length. Upper pole obscured by bowel gas. Visualized portions appear unremarkable Visualized Aorta and IVC: Unremarkable Procedure Note Delta Montero MD - 12/28/2024 Exam: US ABDOMEN COMPLETE Date and time of exam: 12/28/2024 9:37 AM Reason for exam: Respiratory distress; COPD with exacerbation (CMS/HCC); Left arm swelling. Findings: Liver: Diffuse increased echogenicity within the liver, consistent with fatty infiltration. Gallbladder: Unremarkable Common Bile Duct: 5.1 mm in diameter. Pancreas: Mostly obscured by bowel gas Spleen: 9.9 x 12.7 x 3.9 cm. Unremarkable Right Kidney: 11.9 cm in length. Unremarkable Left Kidney: cm in length. Upper pole obscured by bowel gas. Visualized portions appear unremarkable Visualized Aorta and IVC: Unremarkable IMPRESSION: Fatty infiltration within the liver. A few structures are obscured by overlying bowel gas. Otherwise unremarkable exam. us Luzma Romero DO US ORDERABLES Final Result * INFLUENZA A/B, RSV AND COVID-19 PCR PANEL (12/28/2024 8:54 AM CDT) Only the most recent of5 resultswithin the time period is included. COVID-19 PCR NOT DETECTED Not Detected 12/29/19 11:52 AM [facility] Influenza A by PCR NOT DETECTED Not Detected 12/28/2024 11:52 AM [facility] Influenza B by PCR NOT DETECTED Not Detected 12/28/2024 11:52 AM [facility] RSV by PCR NOT DETECTED Not Detected 12/28/2024 11:52 AM [facility] Upper Respiratory ENTIRE NASOPHARYNX / Unknown Collection / Unknown 12/28/2024 8:54 AM CDT 12/28/2024 8:57 AM T [facility] - 12/28/2024 11:52 AM CDT This test has been authorized by the FDA under an Emergency Use Authorization for use by authorized laboratories. This test has been validated in accordance with the FDA's guidance regarding Coronavirus Disease-2019 testing. Optimum specimen types and timing for peak viral levels during infection have not been determined. A negative RT-PCR result does not rule out infection with the 2019-Novel Coronavirus. Luzma Romero DO MICROBIOLOGY - GENERAL ORDER JANAY Final Result Performing Organization Address [facility] [[email or web address]] Co de Phone Number [facility] CLIA # [id number] [address] [address] [place] [address] * (ABNORMAL) TSH REFLEXIVE (12/28/2024 8:50 AM CDT) TSH 0.26(L) 0.27 - 4.20 uIU/mL 12/28/2024 9:39 AM CDT [facility] Blood Venipuncture / Unknown 12/28/2024 8:50 AM CDT 12/28/2024 8:54 AM CDT Luzma Romero DO CHEMISTRY ORDERABLES Final R esult Performing Organization Address [facility] de Phone Number [facility] CLIA # [id number] [address] [address] * T3 FREE (12/28/2024 8:50 AM CDT) T3 FREE 3.7 2.3 - 4.2 pg/mL 12/29/2024 4:55 AM CDT [facility] Blood Venipuncture / Unknown 12/28/2024 8:50 AM CDT 12/28/2024 10:05 AM CDT Narrative [facility] - 12/29/2024 4:55 AM CDT Performing Organization Information: Site ID: [place] Name: [employer] Address: [address] [address] Director: Emily Dumont MD us Luzma Romero DO CHEMISTRY ORDERABLES Final R esult Performing Organization Address [place]/[facility] [[email or web address]] Co de Phone Number [facility] * T4 FREE (12/28/2024 8:50 AM CDT) T4 FREE 1.17 0.81 - 1.70 ng/dL 12/28/2024 10:06 AM CDT [facility] Blood Venipuncture / Unknown 12/28/2024 8:50 AM CDT 12/28/2024 8:54 AM CDT Luzma Romero DO CHEMISTRY ORDERABLES Final R [facility] Performing Organization Address [facility] de Phone Number [facility] CLIA # [id number] [address] [place] [address] * (ABNORMAL) LIPASE (12/28/2024 2:31 AM CDT) Only the most recent of2 resultswithin the time period is included. LIPASE 10(L) 13 - 60 U/L 12/28/2024 9:04 AM CDT [facility] Blood Venipuncture / Unknown 12/28/2024 2:31 AM CDT 12/28/2024 2:37 AM CDT Luzma Romero DO CHEMISTRY ORDERABLES Final R ult Performing Organization Address [facility] [[email or web address]] Co de Phone Number [facility] CLIA # [id number] [address] [place] [address] * Critical Care (12/28/2024 2:16 AM CDT) Narrative Tarik Albert MD - 12/28/2024 2:16 AM CDT Tarik Albert MD 12/28/2024 4:08 AM Critical Care Performed by: Tarik Albert MD Authorized by: Tarik Albert MD Critical care provider statement: Critical care time (minutes): 35 Critical care was necessary to treat or prevent imminent or life-threatening deterioration of the following conditions: Respiratory failure Critical care was time spent personally by me on the following activities: Development of treatment plan with patient or surrogate, discussions with consultants, obtaining history from patient or surrogate, examination of patient, review of old charts, re-evaluation of patient's condition, pulse oximetry, ordering and review of radiographic studies, ordering and review of laboratory studies and ordering and performing treatments and interventions Tarik Albert MD PROCEDURE/MINOR SURGICAL ORDE RABLES Final Result * IOL BIOMETRY - OU - BOTH EYES (12/22/2024 9:40 AM CDT) Narrative [facility] OPHTHALMOLOGY ORDERS - 12/22/2024 9:40 AM CDT IOL obtained for cataract surgery Kumar Ochoa MD OPHTH ULTRASOUND Final Result Performing Organization Address [facility]/ZIP Co de Phone Number [facility] OPHTHALMOLOGY ORDERS * CORNEAL TOPOGRAPHY - OU - BOTH EYES (12/22/2024 9:40 AM CDT) Kumar Ochoa MD OPHTH MAPPING Final Result [facility] OPHTHALMOLOGY ORDERS * AUTO-REFRACTOR & KERATOMETER OU BOTH EYES (12/22/2024 9:40 AM CDT) Kumar Ochoa MD OPHTH CLINIC PROCEDURES Final Result [facility] OPHTHALMOLOGY ORDERS * EYE DROPS (12/22/2024 9:06 AM CDT) Narrative [facility] 12/22/2024 9:40 AM CDT Medications Eye Drops: 1 Drop phenylephrine 2.5 % Route: Topical, Site: Eye, Bilateral ND: [id number], Lot: [id number] 1 Drop proparacaine 0.5 % Route: Topical, Site: Eye, Bilateral NDC: 81900-409-52, Lot: [id number] 1 Drop tropicamide 1 % Route: Topical, Site: Eye, Bilateral ND: [id number], Lot: [id number] Notes Eye drop orders per protocol for Basic Mixer Whipped Topping Eye Exam (Dilated) 1 Drop proparacaine (OPHTHAINE) 0.5% ophthalmic solution prior to tonometry 1 Drop tropicamide (MYDRIACYL) 1% ophthalmic solution 1 Drop phenylephrine (AK-DILATE, MYDFRIN) 2.5% ophthalmic solution Kumar Ochoa MD OPHTH CLINIC PROCEDURES Final Result [facility] CLIA# [id number] [address] [place] [address] * TELEMETRY REPORT (12/20/2024 3:18 PM CDT) Only the most recent of12 resultswithin the time period is included. Provider Scanning ECG ORDERABLES Final Result * XR LUMBAR SPINE 2 OR 3 VW (12/18/2024 9:01 AM CDT) Only the most recent of2 resultswithin the time period is included. Anatomical Region Laterality Modality Spine Computed Radiogr aphy 12/18/2024 9:01 AM CDT Impressions 12/18/2024 9:28 AM CDT IMPRESSION: Lower lumbar spine degenerative changes and remote L1 superior endplate compression fracture. Narrative 12/18/2024 9:28 AM CDT Exam: XR LUMBAR SPINE 2 OR 3 VW Date/Time of Exam: 12/18/2024 9:01 AM Reason For Exam: Low Back Pain. Diagnosis: COPD with exacerbation ([facility]). Findings: There is a mild remote L1 superior endplate compression fracture. Slight anterolisthesis is noted at L4-L5. Disc space narrowing and facet arthrosis most prominent at L4-L5 and L5-S1. No acute fracture. Atherosclerotic calcifications are present in the aorta. Procedure Note Tarik Aranda MD - 12/18/2024 Exam: XR LUMBAR SPINE 2 OR 3 VW Date/Time of Exam: 12/18/2024 9:01 AM Reason For Exam: Low Back Pain. Diagnosis: COPD with exacerbation (CMS/HCC). Findings: There is a mild remote L1 superior endplate compression fracture. Slight anterolisthesis is noted at L4-L5. Disc space narrowing and facet arthrosis most prominent at L4-L5 and L5-S1. No acute fracture. Atherosclerotic calcifications are present in the aorta. IMPRESSION: Lower lumbar spine degenerative changes and remote L1 superior endplate compression fracture. Landon Blankenship MD DIAGNOSTIC IMAGING O RDERABLES Final Result * C. DIFFICILE DETECTION (12/18/2024 1:57 AM CDT) Pathologist [facility] TOXIGENIC C DIFFICILE NOT DETECTED Not Detected 12/18/2024 3:10 AM CDT [facility] Stool STOOL SPECIMEN / Unknown Collection / Unknown 12/18/2024 1:57 AM CDT 12/18/2024 2:19 AM CDT Narrative [facility] - 12/18/2024 3:10 AM CDT This assay is used to detect Toxigenic C. difficile target(B gene) DNA sequences in unformed stool specimens. If toxigenic C. difficile is not detected, but clinical suspicion is high please consult ID for consultation and potential repeat testing. This test should not be used as a test of cure. us Landon Blankenship MD MICROBIOLOGY - [facility] ORDERABLES Final Result [facility] CLIA # [id number] [address] [place] [address] * CTA CHEST W AND/OR WO CONTRAST (12/17/2024 11:55 PM CDT) Only the most recent of4 resultswithin the time period is included. Anatomical Region Laterality Modality Chest Computed Tomogra phy 12/17/2024 11:5 5 PM CDT Impressions 12/18/2024 1:01 AM CDT IMPRESSION: No evidence of acute cardiopulmonary disease; negative for pulmonary embolism. Mild interlobular septal thickening suggestive of central vascular congestion. Mild multichamber cardiomegaly with moderate three-vessel coronary atherosclerosis. Stable left lower lobe masslike consolidation. No new opacity. Hepatomegaly. Narrative 12/18/2024 1:01 AM CDT EXAM: CTA CHEST W AND/OR WO CONTRAST DATE/TIME OF EXAM: 12/17/2024 11:55 PM REASON FOR EXAM: Pulmonary embolism (PE) suspected, high prob DIAGNOSIS: COPD with exacerbation (CMS/HCC) COMPARISON: CT of the chest with contrast 12/09/2024 TECHNIQUE: Following the administration of intravenous contrast axial CT images were obtained from the thoracic inlet through the adrenal glands to encompass the chest. Contrast timing bolus was optimized to evaluate the pulmonary arteries. Sagittal and coronal 2-D and MIP/3D re-formations were subsequently performed. FINDINGS: Thoracic inlet and chest wall: No acute findings. No suspicious lymphadenopathy. Mediastinum: No pathologically enlarged or morphologically suspicious lymph nodes. Heart and vessels: Mild multichamber cardiomegaly. Moderate three-vessel coronary atherosclerosis Pulmonary arteries: No filling defects are identified within the opacified portions of the pulmonary arterial tree to suggest the presence of pulmonary embolism. Lungs: Mild interlobular septal thickening. Stable left lower lobe opacity measuring 2.6 cm. No new consolidation. Pleura: No pleural effusion or pneumothorax. Upper abdomen: Hepatomegaly. Soft tissues and Bones: No suspicious osseous lesions. Stable postsurgical changes of right mastectomy. Ventral hernia containing anterior left hepatic lobe Additional comments: None. Procedure Note Anu Mackay MD - 12/18/2024 EXAM: CTA CHEST W AND/OR WO CONTRAST DATE/TIME OF EXAM: 12/17/2024 11:55 PM REASON FOR EXAM: Pulmonary embolism (PE) suspected, high prob DIAGNOSIS: COPD with exacerbation (CMS/HCC) COMPARISON: CT of the chest with contrast 12/09/2024 TECHNIQUE: Following the administration of intravenous contrast axial CT images were obtained from the thoracic inlet through the adrenal glands to encompass the chest. Contrast timing bolus was optimized to evaluate the pulmonary arteries. Sagittal and coronal 2-D and MIP/3D re-formations were subsequently performed. FINDINGS: Thoracic inlet and chest wall: No acute findings. No suspicious lymphadenopathy. Mediastinum: No pathologically enlarged or morphologically suspicious lymph nodes. Heart and vessels: Mild multichamber cardiomegaly. Moderate three-vessel coronary atherosclerosis Pulmonary arteries: No filling defects are identified within the opacified portions of the pulmonary arterial tree to suggest the presence of pulmonary embolism. Lungs: Mild interlobular septal thickening. Stable left lower lobe opacity measuring 2.6 cm. No new consolidation. Pleura: No pleural effusion or pneumothorax. Upper abdomen: Hepatomegaly. Soft tissues and Bones: No suspicious osseous lesions. Stable postsurgical changes of right mastectomy. Ventral hernia containing anterior left hepatic lobe Additional comments: None. IMPRESSION: No evidence of acute cardiopulmonary disease; negative for pulmonary embolism. Mild interlobular septal thickening suggestive of central vascular congestion. Mild multichamber cardiomegaly with moderate three-vessel coronary atherosclerosis. Stable left lower lobe masslike consolidation. No new opacity. Hepatomegaly. us Landon Blankenship MD CT ORDERABLES Jana l Result * MANUAL DIFFERENTIAL (12/17/2024 7:23 PM CDT) Only the most recent of3 resultswithin the time period is included. PLATELET EST. Adequate 12/17/2024 8:26 PM CDT [facility] ANISOCYTOSIS 1+ /hpf 12/17/2024 8:26 PM CDT [facility] COTTON-JOLLY BODIES Present /hpf 12/17/2024 8:26 PM CDT [facility] Blood Venipuncture / Unknown 12/17/2024 7:23 PM CDT 12/17/2024 7:33 PM CDT us Bala Prieto MD HEMATOLOGY ORDERABLES COM Fi nal Result [facility] CLIA # [id number] [address] [address] * (ABNORMAL) TROPONIN (12/17/2024 7:23 PM CDT) TROPONIN T, 5TH GEN 20(H) <=10 ng/L 12/17/2024 8:06 PM CDT [facility] Comment:Hemolysis can falsel y decrease Troponin quantitation. Blood Venipuncture / Unknown 12/17/2024 7:23 PM CDT 12/17/2024 7:33 PM CDT Narrative [facility] - 12/17/2024 8:06 PM CDT Troponin elevated. us Bala Prieto MD CHEMISTRY ORDERABLES Final R esult [facility] CLIA # [id number] [address] [place] [address] * EYE DROPS (12/16/2024 2:39 PM CDT) Peggy [facility] 12/16/2024 2:39 PM CDT Medications Eye Drops: 2 Drop hydroxypropyl methylcellulose (GONAK) 2.5% ophthalmic solution Route: Right Eye [facility]: 04032-759-21, Lot: [id number], Expiration date: 03/23/2026 2 Drop proparacaine (OPHTHAINE) 0.5% ophthalmic solution Route: Right Eye ND: 68842-776-30, Lot: [id number], Expiration date: 10/19/2025 1 Drop sodium borate-boric acid-sodium chloride-water eye wash solution Route: Right Eye ND: 6781-8903-81, Lot: [id number], Expiration date: 01/19/2026 Notes Eye drop orders per protocol for B Scan Administer the following medications approximately 1 minute apart into the procedural/operative/affected eye 3 drops of proparacaine (OPHTHAINE) 0.5% ophthalmic solution 1 drop artificial tear (GENTEAL) 0.3% ophthalmic gel (SYSTANE) Eduardo Craven MD OPHTH CLINIC PROCEDURES Fin al Result Performing Organization Address [facility]/ZIP Co de Phone Number [facility] CLIA# [id number] [address] [place] [address] * B-SCAN ULTRASOUND - OD - RIGHT EYE (12/16/2024 2:39 PM CDT) Narrative [facility] OPHTHALMOLOGY ORDERS - 12/16/2024 2:39 PM CDT Retinal detachment Eduardo Craven MD OPHTH ULTRASOUND Final Resu lt Performing Organization Address [facility] [[email or web address]] Co de Phone Number [facility] OPHTHALMOLOGY ORDERS * EYE DROPS (12/16/2024 2:38 PM CDT) Narrative [facility] - 12/16/2024 2:38 PM CDT Medications Eye Drops: 1 Drop phenylephrine 2.5 % Route: Topical ND: 76177-558-26, Lot: [id number], Expiration date: 08/21/2025 1 Drop proparacaine 0.5 % Route: Topical NDC: 07976-515-27, Lot: [id number], Expiration date: 07/21/2026 1 Drop tropicamide 1 % Route: Topical NDC: 32069-347-02, Lot: [id number], Expiration date: 06/21/2026 Notes Eye drop orders per protocol for Basic Mixer Whipped Topping Eye Exam (Dilated) 1 Drop proparacaine (OPHTHAINE) 0.5% ophthalmic solution prior to tonometry 1 Drop tropicamide (MYDRIACYL) 1% ophthalmic solution 1 Drop phenylephrine (AK-DILATE, MYDFRIN) 2.5% ophthalmic solution Eduardo Craven MD OPHTH CLINIC PROCEDURES Fin al Result Performing Organization Address [facility]/ZIP Co de Phone Number [facility] CLIA# [id number] [address] [place] [address] * OCT, RETINA - OU - BOTH EYES (12/16/2024 1:53 PM CDT) Narrative [facility] OPHTHALMOLOGY ORDERS - 12/16/2024 1:53 PM CDT Right Eye Quality was good. Left Eye Quality was good. Notes Optical Coherence Tomography ordered to evaluate the status of the macula: Right Eye: no view Left Eye: Good contour, no fluid.' us Eduardo Craven MD OPHTH TOMOGRAPHY Final Resu lt [facility] OPHTHALMOLOGY ORDERS * (ABNORMAL) DRUG SCREEN, URINE (12/12/2024 6:02 PM CDT) AMPHETAMINE QUAL, URINE Negative Negative 12/12/2024 6:53 PM CDT [facility] BARBITURATE QUAL, URINE Negative Negative 12/12/2024 6:53 PM CDT [facility] BENZODIAZEPINE QUAL, URINE Negative Negative 12/12/2024 6:53 PM CDT [facility] COCAINE QUAL URINE Negative Negative 12/12/2024 6:53 PM CDT [facility] OPIATE QUAL, URINE Presumptive Positive(A) Negative 12/12/2024 6:53 PM CDT [facility] CANNABINOIDS QUAL, URINE Negative Negative 12/12/2024 6:53 PM CDT [facility] OXYCODONE QUAL, URINE Negative Negative 12/12/2024 6:53 PM CDT [facility] METHADONE QUAL, URINE Negative Negative 12/12/2024 6:53 PM CDT [facility] FENTANYL QUAL, URINE Negative Negative 12/12/2024 6:53 PM CDT [facility] CREATININE, URINE 127.1 29.0 - 226.0 mg/dL 12/12/2024 6:53 PM CDT [facility] Comment:Reference Range vari es with fluid intake and diet. Urine URINE SPECIMEN OBTAINED BY CLEAN CATCH PROCEDURE / Unknown Collection / Unknown 12/12/2024 6:02 PM CDT 12/12/2024 6:10 PM CDT Narrative [facility] - 12/12/2024 6:53 PM CDT This [...] Otis Chen MD URINE ORDERABLES Final Result [facility] CLIA # [id number] [address] [place] [address] * CT HEAD WO CONTRAST (12/12/2024 3:11 [...] INTERFACE SYSTEM - 12/12/2024 9:11 PM CDT [facility] Echocardiography Laboratory [address] [place] [address] Transthoracic Echocardiography Patient: Le Diaz Study ID: ECHO COMPLETE - Gender: F : 1965 Age: 59 Room: [facility] Study Date: 12/12/2024 Pt Status: Inpatient Study Time: 12:47:40 PM [facility] #: [id number] Ordering:Otis Chen [employer] Member: MONTY Indications and History: Syncope. Summary and [...] (H) dottie values outside specified reference range. [facility] are accredited with the [place] [facility] Accreditation Commission - Echocardiography. Prepared and Electronically Authenticated Toni Leija Confirmed 12/12/2024 21:11 Procedure Note Toni Leija MD - 12/12/2024 [facility] Echocardiography Laboratory [address] [place] [address] Transthoracic Echocardiography Patient: Le Diaz Study ID: ECHOCOMPLETE - Gender: F : 1965 Age: 59 Room: [facility] Study Date: 12/12/2024 Pt Status: Inpatient Study Time: 12:47:40 PM [facility] #: [id number] Ordering:Otis Chen [employer] Member: MONTY Indications and History: Syncope. Summary and [...] (H) dottie values outside specified reference range. [facility] are accredited with theIntersocietal Accreditation Commission - Echocardiography. Prepared and Electronically Authenticated Toni Leija Confirmed 12/12/2024 21:11 us Otis Chen MD ORDERABLES Final Result INTERFACE SYSTEM Refer to clinic/hospital department * (ABNORMAL) UNFRACTIONATED HEPARIN MONITORING (12/12/2024 3:21 AM CDT) Only the most recent of6 resultswithin the time period is included. ANTI-XA UNFRAC HEP 0.96() See Interpretation IU/mL 12/12/2024 3:50 AM CDT [facility] Blood Venipuncture / Unknown 12/12/2024 3:21 AM CDT 12/12/2024 3:26 AM CDT Narrative [facility] - 12/12/2024 3:50 AM CDT Therapeutic Range: PT/DVT Heparin Protocol 0.3 - 0.7 IU/ml Cardiac Heparin Protocol 0.3 - 0.6 IU/ml The reference range for this test is specific to the anticoagulant and is not appropriate for monitoring patients on a DOAC protocol. us Otis Chen MD HEMATOLOGY ORDERABLES Final Res ult Performing Organization Address City/[facility]/ZIP Co de Phone Number [facility] CLIA # [id number] [address] [address] [place], [place] [id number] * PHOSPHORUS (12/11/2024 5:44 AM CDT) Only the most recent of2 resultswithin the time period is included. PHOSPHORUS 2.7 2.5 - 4.5 mg/dL 12/11/2024 6:43 AM CDT [facility] Blood Venipuncture / Unknown 12/11/2024 5:44 AM CDT 12/11/2024 6:03 AM CDT Otis Chen MD CHEMISTRY ORDERABLES Final Resu lt Performing Organization Address City/[facility]/ZIP Co de Phone Number [facility] CLIA # [id number] [address] [address] [place], [place] [address] * PTT (12/10/2024 3:37 PM CDT) Only the most recent of3 resultswithin the time period is included. PTT 26.7 24.8 - 37.2 seconds 12/10/2024 4:58 PM CDT [facility] Blood Venipuncture / Unknown 12/10/2024 3:37 PM CDT 12/10/2024 4:35 PM CDT Narrative [facility] - 12/10/2024 4:58 PM CDT Therapeutic Range: Hi-level PE/DVT heparin protocol 80.1 - 95.0 sec Lo-level PE/DVT heparin protocol 70.1 - 85.0 sec Cardiac Heparin Protocol 70.1 - 100.0 sec us Otis Chen MD HEMATOLOGY ORDERABLES Final Res ult Performing Organization Address [facility]/ZIP Co de Phone Number [facility] CLIA # [id number] [address] [address] [place], [place] [id number] * EXTRA TUBE (URINE [place]) (12/10/2024 1:25 AM CDT) Only the most recent of3 resultswithin the time period is included. Urine URINE SPECIMEN OBTAINED BY CLEAN CATCH PROCEDURE / Unknown Collection / Unknown 12/10/2024 1:25 AM CDT 12/10/2024 1:30 AM CDT us Nicolle Vo NP URINE ORDERABLES Final Result Performing Organization Address [facility] de Phone Number [facility] CLIA # [id number] [address] [address] * (ABNORMAL) URINALYSIS WITH REFLEX MICROSCOPIC (12/10/2024 1:25 AM CDT) Only the most recent of3 resultswithin the time period is included. COLOR UA Pale Yellow Pale to Dark Yellow 12/10/2024 1:51 AM CDT [facility] CLARITY UA Clear Clear 12/10/2024 1:51 AM CDT [facility] SPECIFIC GRAVITY UA 1.020 1.003 - 1.035 12/10/2024 1:51 AM CDT [facility] PH UA 5.5 5.0 - 8.0 12/10/2024 1:51 AM CDT [facility] LEUKOCYTE ESTERASE UA Negative Negative 12/10/2024 1:51 AM CDT [facility] NITRITE UA Negative Negative 12/10/2024 1:51 AM CDT [facility] PROTEIN UA Trace(A) Negative 12/10/2024 1:51 AM CDT [facility] GLUCOSE UA 2+(A) Negative 12/10/2024 1:51 AM CDT [facility] KETONES UA Negative Negative 12/10/2024 1:51 AM CDT [facility] UROBILINOGEN UA 0.2 <2.0 mg/dL 1:51 AM CDT [facility] BILIRUBIN UA Negative Negative 12/10/2024 1:51 AM CDT [facility] BLOOD UA Negative Negative 12/10/2024 1:51 AM CDT [facility] WBC UA 11-25(A) 0 - 2 /hpf 12/10/2024 1:51 AM CDT [facility] RBC UA 3-5(A) 0 - 2 /hpf 12/10/2024 1:51 AM CDT [facility] BACTERIA UA 3+(A) Negative /hpf 12/10/2024 1:51 AM CDT [facility] EPITHELIAL CELLS, URINE 0-5 0 - 5 /hpf 12/10/2024 1:51 AM T [facility] Urine URINE SPECIMEN OBTAINED BY CLEAN CATCH PROCEDURE / Unknown Collection / Unknown 12/10/2024 1:25 AM CDT 12/10/2024 1:30 AM CDT us Nicolle Vo NEW ORDER CLERK URINE ORDERABLES Final Result [facility] CLIA # [id number] [address] [address] [place] [address] * BLOOD CULTURE (12/09/2024 10:54 PM CDT) Only the most recent of5 resultswithin the time period is included. BLOOD CULTURE No growth 12/15/2024 4:27 AM CDT [facility] Blood (Peripheral) Venipuncture / Unknown 12/09/2024 10:54 PM CDT 12/09/2024 11:01 PM CDT us Mikey Rudolph MD MICROBIOLOGY - GENERAL O RDERABLES Final Result [facility] CLIA # [id number] [address] [facility] [place] [address] * CARDIAC EVENT MONITOR (12/07/2024 1:50 PM CDT) Narrative [facility] - 12/07/2024 1:50 PM CDT Echo Tapia MD 12/07/2024 1:50 PM Baseline: sinus 73 bpm Only tracing us James Lee MD CARDIAC SERVICES ORDERABLES Fin al Result Performing Organization Address [facility] [[email or web address]] Co de Phone Number [facility] CLIA [id number] [address] [facility] [address] [place] [address], [place] [phone] * MRI LUMBAR WO CONTRAST (11/30/2024 5:44 [...] degenerative changes. 4. Additional details as above. us Matilde Nix MD MR ORDERABLES Final Result * Critical Care (11/28/2024 5:23 PM CDT) Narrative Cassius Sanderson MD - 11/28/2024 5:23 PM CDT Cassius Sanderson MD 11/29/2024 9:28 PM Critical Care Performed by: Csasius Sanderson MD Authorized by: Cassius Sanderson MD [...] PM CDT Narrative 11/23/2024 9:28 AM CDT [facility] Noninvasive Vascular Laboratory [address] [place] [address] Noninvasive Vascular Lab Venous Exam Unilateral Lower Extremity Duplex Patient: Le Diaz Study ID: US VENOUS DOPPLE Gender: F : 1965 Age: 59 Room: Height: Weight: BSA: Pt status: Inpatient Study Date: 11/22/2024 Study Time: 02:22:45 PM BSA: Ordering: Michael Blank Interpreting:Kyler Anne [employer] Member: CORKY Indications: DVT. Summary Impression: No evidence [...] Patent; Normal phasicity; spontaneous; compressible; normal augmentation [facility] Vascular Lab is accredited with the Intersocietal Commission for the Accreditation of Vascular Laboratories (ICAVL) Prepared and Electronically Authenticated Kyler Anne Confirmed 11/23/2024 09:28 Procedure Note Kyler Anne MD - 11/23/2024 [facility] [address] Noninvasive Vascular Lab Venous Exam Unilateral Lower Extremity Duplex Patient: Le Diaz Study ID: US VENOUS DOPPLE Gender: F : 1965 Age: 59 Room: Height: Weight: BSA: Pt status: Inpatient Study Date: 11/22/2024 Study Time: 02:22:45 PM BSA: Ordering: Michael Blank Interpreting:Kyler Anne [employer] Member: CORKY Indications: DVT. Summary Impression: No evidence [...] femoral Patent; Normal phasicity; spontaneous;compressible; normal augmentation [facility] Vascular Lab is accredited with theIntersocietal Commission for the Accreditation of Vascular Laboratories (ICAVL) Prepared and Electronically Authenticated Kyler Anne Confirmed 11/23/2024 09:28 us Michael Blank MD US ORDERABLES Final Result * XR SHOULDER 2+ VW RIGHT (11/21/2024 [...] - 145 ug/dL 11/21/2024 11:54 PM CDT [facility] TIBC 289 250 - 450 ug/dL 11/21/2024 11:54 PM CDT [facility] IRON % SATURATION 15 15 - 60 % 11/21/2024 11:54 PM CDT [facility] Blood Venipuncture / Unknown 11/21/2024 7:37 PM CDT 11/21/2024 7:57 PM CDT Derrick Maldonado MD CHEMISTRY ORDERABLES Final R esult YASEMIN CERON [facility] YAKELIN # [id number] [address] [facility] [place] [address] * XR HIP 2 OR 3 VIEWS [...] tissues appear grossly unremarkable. Procedure Note Meir Chawla N, DO - 11/18/2024 Exam: XR HIP 2 OR [...] grossly unremarkable. IMPRESSION: No acute osseous abnormality. Tresa Mueller MD DIAGNOSTIC IMAGING ORDERABL ES [...] without evidence of an acute osseous abnormality. Tresa Mueller MD DIAGNOSTIC IMAGING ORDERABL ES [...] Note Meir Chawla, - 11/18/2024 Exam: XR ANKLE 3+ VW LEFT Date/Time of Exam: 11/18/2024 6:05 PM Reason For Exam: Injury. Diagnosis: See Reason for Exam. Comparison: None. Findings: There is a prominent degree of soft tissue swelling. There is no evidence of an acute fracture, dislocation or significant arthrosis. 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 IMPRESSION: Soft tissue swelling without evidence of an acute osseous abnormality. Tresa Mueller MD DIAGNOSTIC IMAGING ORDERABL ES Final Result * MRSA PCR RAPID SCREEN (11/14/2024 8:47 AM CDT) MRSA PCR RESULT MRSA not detected MRSA not detected 11/14/2024 10:11 AM CDT [facility] Surveillance ANTERIOR NARES SWAB / Unknown Collection / Unknown 11/14/2024 8:47 AM CDT 11/14/2024 8:52 AM CDT Narrative [facility] - 11/14/2024 10:11 AM CDT This assay is used to detect Methicillin-Resistant S. aureus (MRSA) colonization of the nares. PLEASE NOTE: This test has not been approved to monitor effectiveness of MRSA decolonization. Residual DNA may temporarily be present after successful decolonization. This test was performed using an FDA approved screening methodology. Curly Loaiza DO MICROBIOLOGY - GENE RAL ORDERABLES Final Result [facility] CLIA # [id number] [facility] [address] * CTA CHEST + ABD/PEL W CONTRAST [...] No acute fracture or traumatic malalignment. Pablo Judy McTeer FIRE DEPARTMENT BATTALION CHIEF CT ORDERABLES Final R esult * KETONES/BETA HYDROXYBUTYRATE (11/13/2024 11:04 AM CDT) BETA HYDROXYBUTYRATE 0.2 0.0 - 0.3 mmol/L 11/13/2024 12:52 PM CDT [facility] Blood Venipuncture / Unknown 11/13/2024 11:04 AM CDT 11/13/2024 11:12 AM CDT Elizabeth Elizabeth MD CHEMISTRY ORDERABLES Final Re sult [facility] CLIA # [id number] [address] [place] [address] * XR FEMUR 2 VW BILAT (11/11/2024 [...] joint. Aki Booth DO DIAGNOSTIC IMAGING ORDE RABKAREY Final [...] fibula. Aki Booth DO DIAGNOSTIC IMAGING [facility] Final Result * Critical Care (11/05/2024 4:16 [...] - 295 mOsm/kg 11/01/2024 10:03 PM CDT [facility] Blood Venipuncture / Unknown 11/01/2024 9:10 PM CDT 11/01/2024 9:30 PM CDT Li Anderson MD CHEMISTRY ORDERABLES Jana l Result Performing Organization Address [facility] [[email or web address]] Co de Phone Number [facility] CLIA # [id number] [address] [address] [place] [address] * US CAROTID DOPPLER (11/01/2024 8:04 AM CDT) Anatomical Region Laterality Modality Neck Ultrasound 11/01/2024 7:32 AM CDT Narrative 11/01/2024 9:00 AM CDT [facility] Noninvasive Vascular Laboratory [address] [place] [address] Noninvasive Vascular Lab Cerebrovascular Exam Carotid Duplex Patient: Le Diaz Study ID: US CAROTID DOPPL Gender: F : 1965 Age: 59 Room: [facility] Height: 162.6cm Weight: 97kg BSA: 2.14m^2 Pt status: Inpatient Study Date: 11/01/2024 Study Time: 07:32:50 AM BSA: 2.14m^2 Ordering: Danyell Dewitt Interpreting:Lm Zimmerman [employer] Crew Member: Jerson Nuñez Indications: Syncope. Summary Mild plaque [...] !Proximal ICA/prox CCA!0.68 !0.53 ! + +-----+-----+ [facility] Vascular Lab is accredited with the Intersocietal Commission for the Accreditation of Vascular Laboratories (ICAVL) Prepared and Electronically Authenticated Lm Zimmerman Confirmed 11/01/2024 09:00 Procedure Note Lm Zimmerman MD - 11/01/2024 [facility] Noninvasive Vascular Laboratory [address] [place] [address] Noninvasive Vascular Lab Cerebrovascular Exam Carotid Duplex Patient: Le Diaz Study ID: US CAROTID DOPPL Gender: F : 1965 Age: 59 Room: [facility] Height: 162.6cm Weight: 97kg BSA: 2.14m^2 Pt status: Inpatient Study Date: 11/01/2024 Study Time: 07:32:50 AM BSA: 2.14m^2 Ordering: Danyell Dewitt Interpreting:mL Zimmerman [employer] Member: Jerson Nuñez Indications: Syncope. Summary Mild plaque [...] !Proximal ICA/prox CCA!0.68 !0.53 ! + +-----+-----+ [facility] Vascular Lab is accredited with theIntersocietal Commission for the Accreditation of Vascular Laboratories (ICAVL) Prepared and Electronically Authenticated Lm Zimmerman Confirmed 11/01/2024 09:00 Danyell Dewitt MD US ORDERABLES Final Resul t * (ABNORMAL) HEMOGLOBIN A1C (10/31/2024 3:08 AM CDT) HEMOGLOBIN A1C 10.4(H) <=5.6 % 11/02/2024 10:13 AM CDT [facility] EST. AVG GLUCOSE, A1C 252 mg/dL 11/02/2024 10:13 AM T [facility] Blood Venipuncture / Unknown 10/31/2024 3:08 AM CDT 10/31/2024 3:13 AM CDT Narrative [facility] - 11/02/2024 10:13 AM CDT HGB A1C INTERPRETATION NORMAL: <5.7% PRE-DIABETES: 5.7 - 6.4% DIABETES: 6.5% OR GREATER Danyell Dewitt MD CHEMISTRY ORDERABLES Final Result [facility] CLIA # [id number] [address] [address] * US ABDOMEN LIMITED (10/28/2024 10:54 AM CDT) Anatomical Region Laterality Modality Abdomen Ultrasound 10/28/2024 [...] sonographic Heath's sign was documented by the limousine rental clerk. Common bile duct: No dilation of the [...] sonographic Heath's sign was documented by the limousine rental clerk. Common bile duct: No dilation of the intrahepatic ducts. Common bile duct measures 3.6 mm. No right hydronephrosis or sonographically evident for renal calculi. Right kidney measures 12.5 cm length. Pancreas: Poorly visualized due to overlying bowel gas. IMPRESSION: 1. No acute sonographic abnormalities in the right upper quadrant. 2. Diffuse hepatic steatosis. us Nani Borges MD ORDERABLES Final Re sult * (ABNORMAL) HEPATIC FUNCTION PANEL (10/28/2024 5:37 AM CDT) TOTAL PROTEIN 7.2 6.4 - 8.3 g/dL 10/28/2024 10:03 AM T [facility] ALBUMIN 4.0 3.5 - 5.2 g/dL 10/28/2024 10:03 AM CDT [facility] BILIRUBIN TOTAL 0.3 0.0 - 1.0 mg/dL 10/28/2024 10:03 AM CDT [facility] BILIRUBIN DIRECT 0.1 0.0 - 0.3 mg/dL 10/28/2024 10:03 AM CDT [facility] Comment:Hemolyzed: Result ma y be falsely decreased. ALKALINE PHOSPHATASE 131(H) 35 - 104 U/L 10/28/2024 10:03 AM CDT [facility] AST 15 10 - 35 U/L 10/28/2024 10:03 AM T [facility] ALT 24 <=35 U/L 10/28/2024 10:03 AM T [facility] Blood Venipuncture / Unknown 10/28/2024 5:37 AM CDT 10/28/2024 5:46 AM CDT us Nani Borges MD CHEMISTRY ORDERABLES Fin al Result [facility] CLIA # [id number] [address] [place] [address] * CT ABDOMEN PELVIS W CONTRAST (10/20/2024 [...] PCR PANEL (10/11/2024 12:03 PM CDT) Pathologist [facility] GI Pathogen PCR panel NOT DETECTED No nucleic acids detected. 10/11/2024 1:26 PM CDT [facility] Stool STOOL SPECIMEN / Unknown Collection / Unknown 10/11/2024 12:03 PM CDT 10/11/2024 12:05 PM CDT Narrative [facility] - 10/11/2024 [...] Shigella/Enteroinvasive E. Coli (EIEC) Viruses: Adenovirus F 40/ Astrovirus Norovirus GI/GII Rotavirus A Sapovirus Parasites: Cryptosporidium Cyclospora cayetanensis Entamoeba histolytica Giardia duodenalis Kapil Deluna DO MICROBIOLOGY - GENERAL ORDERABLES Final Result Performing Organization Address City/[facility]/ZIP Co de Phone Number [facility] CLIA # [id number] [address] [id number] * OCCULT BLOOD GUAIAC DIAGNOSTIC (10/11/2024 12:02 PM CDT) OCCULT BLOOD, STOOL Negative Negative 10/11/2024 12:11 PM CDT [facility] Stool STOOL SPECIMEN / Unknown Collection / Unknown 10/11/2024 12:02 PM CDT 10/11/2024 12:03 PM CDT Kapil Deluna DO BODY FLUIDS AND STOOLS Final Result Performing Organization Address City/[facility]/ZIP Co de Phone Number [facility] CLIA # [id number] [address] [place], [place] [address] * XR ABDOMEN 1 VW (10/10/2024 8:40 [...] average. Kapil Deluna DO DIAGNOSTIC IMAGING [facility] Final Result * (ABNORMAL) LIPID PANEL (02/19/2024 5:29 AM DELIVERY MERCHANDISER) CHOLESTEROL 188 <200 mg/dL 02/19/2024 10:25 AM [facility] TRIGLYCERIDE 104 <150 mg/dL 02/19/2024 10:25 AM [facility] HDL 36(L) 40 - 59 mg/dL 02/19/2024 10:25 AM [facility] LDL CALCULATED 131(H) <100 mg/dL 02/19/2024 10:25 AM [facility] NON-HDL CHOLESTEROL 152(H) <130 mg/dL 02/19/2024 10:25 AM [facility] Blood Venipuncture / Unknown 02/19/2024 5:29 AM DELIVERY [facility]AND[facility] 02/19/2024 5:34 AM DELIVERY [facility] - 02/19/2024 10:25 AM DELIVERY MERCHANDISER TOTAL CHOLESTEROL mg/dL Desirable <200 Borderline high [...] ORDERABLES Final R esult Performing Organization Address [facility] [[email or web address]] Co de Phone Number [facility] CLIA # [id number] [address] [address] * MICROALBUMIN/CREATININE RATIO, RANDOM UR (02/26/2023 3:01 PM DELIVERY MERCHANDISER) Creatinine, Urine 199 20 - 275 mg/dL [facility] MICROALBUMIN, URINE 1.9 See Note: mg/dL [facility] Comment: Reference Range: Reference Range [...] category. FASTING:UNKNOWN FASTING: UNKNOWN Test Performed at: [facility] [address] [place] [address] Emily Dumont MD Urine URINE SPECIMEN OBTAINED BY CLEAN CATCH PROCEDURE / Unknown 02/26/2023 3:01 PM DELIVERY [facility]CHAND[facility] 02/26/2023 3:02 PM DELIVERY MERCHANDISER Ryann Burk MD URINE ORDERABLES Final Result Performing Organization Address [facility]/ZIP Co de Phone Number [facility] [phone] [email or web address] [address] [address] * CERV/VAG CYTO SCREEN PAP W/HPV (01/06/2023 12:00 AM CDT) CLINICAL INFORMATION [facility] Comment:None given LAST MENSTRUAL PERIOD [facility] Comment:NONE GIVEN PREV PAP: [facility] Comment:NONE GIVEN PREV BX: [facility] Comment:NONE GIVEN SOURCE [facility] Comment:ENDOCERVIX ADEQUACY: [facility] Comment: Satisfactory for evaluation. Endocervical/transformation zone component present. Age and/or menstrual status not provided PAP INTERP [employer] Comment: Cytology Results: Negative for intraepithelial lesion or malignancy. COMMENT (PAP TEST) [facility] [place] Comment: This Pap test has been evaluated with computer assisted technology. TITRATOR: Irving est [facility] [place] Comment: BKJahaira CT(ASCP) CT screening location: [place] [address] [place] [address] EXPLANATORY NOTE [facility] Comment: EXPLANATORY NOTE: The Pap is a [...] information. HPV E6/E7 Not Detected Not Detected [facility] Comment: Methodology: Plant Senior Manager-Mediated Amplification This assay detects E6/E7 viral messenger RNA (mRNA) from 14 high-risk HPV types (16,18,31,33,35,39,45,51,52,56,58,59,66,68). Cervical sources are required for HPV testing. If a vaginal source from a patient who has had a total hysterectomy with removal of cervix was submitted, please contact the testing laboratory for alternative testing options. For additional information, please refer to http://education.MCH+/faq/SRB803d2 (This link if provided for information/ educational purposes only.) Test Performed at: [facility] [address] [place] [address] Emily TRAN Genital SWAB OF ENDOCERVIX / Unknown 01/06/2023 01/08/2023 10:07 AM CDT us Ryann Burk MD PATHOLOGY/CYTOLOGY ORDERABLES nal Result [facility] [phone] [facility] [address] [address] [address] * MAMMO DIAGNOSTIC UNI RIGHT W OR [...] end. A small clip was placed to dottie the site. Postprocedure radiographs show the clip [...] end. A small clip was placed to dottie the site. Postprocedure radiographs show the clip [...] Heart Failure Problem 05/12/2024 Autogenerated Problem 12/23/2024 [place] * Guarantor: LE DIAZ Account Type Relation to Patient Date of Phone Billing Address Personal/Family [address] [place] [address] RX INFOCROSSING Medicaid [place] Member Subscriber Plan / Payer (Ef fective 2020-Present) Name:Le Diaz Relation to Subscriber:Self Name:Le Diaz Payer ID:Not on file Group ID:Not on file Type:Medicaid Address: [address] Advance Directives For more information, please contact: [phone] Documents on File Type Date Recorded Patient Stage Electrician Expl anation Advance Directive Living Will 12/14/2024 8:53 AM Advance Directive Living Will Advance Directive POA 12/14/2024 8:52 AM A dvance Directive POA Advance Directive Living Will 12/13/2024 3:14 PM [...] on File) Date Activated Date Inactivated Comments 01/04/2025 11:00 AM 01/06/2025 5:13 PM * Default Full Code - Needs Discussion Date Activated Date Inactivated Comments 12/28/2024 8:07 AM 12/29/2024 2:14 PM * Full Code Date Activated Date Inactivated Comments 12/18/2024 1:42 AM 12/19/2024 3:03 PM * Full Code Date Activated Date Inactivated Comments 12/17/2024 11:10 PM 12/18/2024 1:42 AM * Full Code Date Activated Date Inactivated Comments 12/09/2024 11:43 PM 12/13/2024 2:15 PM Care Teams Speech Language Pathology Assistant Relationship Specialty Start Date End Date Delta Wade MD [address] [place] [address] PCP - General Family Practice 03/25/24
--- OUTSIDE RECORDS SUMMARY | 2025-01-07 03:02 | XMS_ITS | CCD ---
Author Name Interface, [id number] lity Address [address] [facility] [place] [address] [facility] Address [address] [place] [address] Care Team Providers Care Inspector Finishing Name Role Phone Anika VALLADARES, Allen Unavailable Unavailable Allergies and Adverse Reactions Medication/Group Name Reaction Severity Date NSAIDS (Non-Steroidal Anti-Inflammatory Drug) 09/05/2014 ketorolac tromethamine 09/05 propoxyphene HCl 09/05/2014 prochlorperazine maleate Opioids-Methadone and Related 09/05/2014 Salicylates 09/05/2014 propoxyphene 09/05/2014 Phenothiazines 09/05/2014 Reason for Visit Medications Date Name Route Dose Frequency Instructions Start Date End Date Status Fill Status Indication 05/01 Prometha zine Oral PO 1.0 TABLET( S) TID PRN nausea 2014 active 05/01 Potassiu m Chloride Oral ER Cap PO 1.0 CAPSULE (S), SUSTAIN ED ACTION daily 2014 active 05/01 Fluoxeti ne Oral PO 1.0 CAPSULE (S) daily 2014 active 05/01 Temazepa m Oral PO 1.0 CAPSULE (S) QHS 2014 active 05/01 Oxycodon e-Acetam inophen Oral 5 mg-325 mg PO 1.0 TABLET( S) Q12H PRN pain 2014 active 05/01 Naproxen Oral PO 1.0 TABLET( S) BID PRN 2014 active 05/01 Lorazepa m Oral PO 1.0 TABLET( S) TID PRN nausea 2014 active 05/01 Quetiapi ne Oral PO 1.0 TABLET( S) bid 2014 active 05/01 Metoprol ol Oral (Tartrat e) PO 25.0 MG BID 2014 active Problems Diagnosis Status Date of Diagnosis Resolution Date Hemochromatosis (disorder) Active Social History Date Name Value 02/26/2015 Sex Female
--- OUTSIDE RECORDS SUMMARY | 2025-01-07 03:02 | XMS_ITS | Encounter Summary ---
Author Organization [facility] Address [address] [place] [address] Care Team Providers Care Manager Center Name Role Phone Delta Wade MD Primary Care Provider [phone] Reason for Visit * Reason Comments Hospital Follow Up Encounter Details Date Type Department Care Team ([facility] Contact Info) Description 05/13/2024 Telephone [facility] [place] [address] [place] [address] Kay Lima, [facility] [address] [place] [address] Hospital Follow Up Social History [...] How often do you attend chur or sikh services? More than 4 times per year [...] on file Legal Sex Female 11:49 PM PATTERN LEASE INSPECTOR Gender Identity Not on file Sexual Orientation Not on file documented as of this encounter Miscellaneous Notes * Telephone Encounter - Danyell Rashid - 05/13/2024 12:30 PM PATTERN LEASE INSPECTOR Called pt back. Could not leave voicemail. If patient calls back please schedule for hospital follow up appointment for the next opening spot. Can be vv if patient cannot travel to clinic. ERN LEASE INSPECTOR * Telephone Encounter - Gypsy Gerber - 05/13/2024 12:02 PM CST Copied from [facility] #[id number]. Topic: Reschedule/Cancel Appointment/Late Arrival >> May 13, [...] discharge? 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 [facility] ERN LEASE INSPECTOR documented in this encounter Plan of Treatment Upcoming Encounters Date Type Department Care Team (Latest Contact Info) Description 01/12/2025 1:40 PM CDT Office Visit [facility] [address] [place] [address] Tresa Stockton, LINEN ROOM CUSTODIAN [address] [place] [address] 01/25/2025 12:00 PM PATTERN LEASE INSPECTOR Hospital Encounter [facility] [address] [place] [phone] Kumar Ochoa MD [address] [address] Combined forms of age-related cataract of right eye 01/25/2025 1:00 PM PATTERN LEASE INSPECTOR - 01/25/2025 2:13 PM PATTERN LEASE INSPECTOR Surgery [facility] [address] [facility] [address] [place] [address] Kumar Ochoa MD [address] [address] CATARACT EXTRACTION IOL INSERTION FEMTO LASER ASSISTED LEVEL 1 01/26/2025 8:30 AM PATTERN LEASE INSPECTOR Office Visit [facility] [place] [address] [address] Edurado Craven MD [address] [address] 02/01/2025 9:00 AM PATTERN LEASE INSPECTOR Office Visit [facility] [place] [address] [address] Paul Bustillos, OD [address] [place] [address] [place] [address] 02/14/2025 3:00 PM PATTERN LEASE INSPECTOR Office Visit [facility] Pulmonology [place] [address] [address] Angeli Miles MD [address] [address] Scheduled Procedures Name Priority Associated Diagnoses Date/Ti me CATARACT EXTRACTION IOL INSERTION FEMTO LASER ASSISTED LEVEL 1 Combined forms of age-related cataract of right eye Right retinal detachment 01/25/2025 1:00 PM PATTERN LEASE INSPECTOR PARS PLANA VITRECTOMY WITH LASER Combined forms of age-related cataract of right eye Right retinal detachment 01/25/2025 1:00 PM PATTERN LEASE INSPECTOR EYE PLACEMENT OF SILICONE OIL Combined forms of age-related cataract of right eye Right retinal detachment 01/25/2025 1:00 PM PATTERN LEASE INSPECTOR documented as of this encounter Goals Goal [...] R/O COVID-19 05/13/2024 05/13/2024 05/14/2024 4:15 AM PATTERN LEASE INSPECTOR R/O Respiratory 06/30/2024 06/30/2024 06/30/2024 1 [...] 12/09/2024 12/10/2024 12/10/2024 1 :36 AM CDT R/O COVID-19 12/17/2024 12/17/2024 12/17/2024 7:49 PM CDT R/O C. diff 12/18/2024 12/18/2024 12/18/2024 3:10 AM CDT R/O COVID-19 12/28/2024 12/28/2024 12/28/2024 11:5 2 AM CDT R/O Respiratory 01/03/2025 01/03/2025 01/03/2025 8 :52 PM CDT documented as of this encounter Care Teams Manager Center Relationship Specialty Start Date End Date Delta Wade MD [address] [address] PCP - General Family Practice 03/25/24 documented as of this encounter
--- OUTSIDE RECORDS SUMMARY | 2025-01-07 03:02 | XMS_ITS | Encounter Summary ---
Author Organization [facility] Address [address] Gonzalez: Epic Prelude ADT [place] [address] Care Team Providers Care Automotive Assembler Name Role Phone Delta Wade MD Primary Care Provider [phone] Encounter Details Date Type Department Care Team (Latest Contact Info) Description 01/04/2025 Travel Social History Tobacco Use Types Packs/Day [...] How often do you attend [facility] or protestant services? More than 4 [...] worry about transportation for future doctor visits, parts picker medication, etc.? 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 Gender Identity Not on file Sexual Orientation Not on file documented as of this encounter Plan of Treatment Upcoming Encounters Date Type Department Care Team (Latest Contact Info) Description 01/12/2025 1:40 PM CDT Office Visit [facility] [address] [facility] [address] [place] [address] Tresa Stockton, [facility] [address] [facility] [address] [place] [address] 01/25/2025 12:00 PM PROPERTY DISPOSAL OFFICER Hospital Encounter [facility] [address] [place] [address] Kumar Ochoa MD [address] [address] Combined forms of age-related cataract of right eye 01/25/2025 1:00 PM PROPERTY DISPOSAL OFFICER - 01/25/2025 2:13 PM PROPERTY DISPOSAL OFFICER Surgery [place] [address] [place] [address] Kumar Ochoa MD [address] [address] CATARACT EXTRACTION IOL INSERTION FEMTO LASER ASSISTED LEVEL 1 01/26/2025 8:30 AM PROPERTY DISPOSAL OFFICER Office Visit [facility] [place] [address] [address] Eduardo Craven MD [address] [place] [address] [place] [address] 02/01/2025 9:00 AM PROPERTY DISPOSAL OFFICER Office Visit [facility] [place] [address] [place] [address] Bustillos Paul Chandrakant, OD [address] [place] 4th [place] [address] 02/14/2025 3:00 PM PROPERTY DISPOSAL OFFICER Office [facility] Pulmonology [address] [place] [address] [place] [address] [place] [address] Angeli Miles MD [address] [place] [address] [place] [address] Scheduled Procedures Name Priority Associated Diagnoses Date/Ti me CATARACT EXTRACTION IOL INSERTION FEMTO LASER ASSISTED LEVEL 1 Combined forms of age-related cataract of right eye Right retinal detachment 01/25/2025 1:00 PM PROPERTY DISPOSAL OFFICER PARS PLANA VITRECTOMY WITH LASER Combined forms of age-related cataract of right eye Right retinal detachment 01/25/2025 1:00 PM PROPERTY DISPOSAL OFFICER EYE PLACEMENT OF SILICONE OIL Combined forms of age-related cataract of right eye Right retinal detachment 01/25/2025 1:00 PM PROPERTY DISPOSAL OFFICER documented as of this encounter Goals Goal Patient Goal Type Associated Problems Recent Progress Patient-Stated? Author Heart Failure Goal Care Plan Heart Failure Problem No Latonya Anguiano LPN Autogenerated Goal Care Plan Autogenerated Problem No Windy Dubois documented as of this encounter Visit Diagnoses Not on filedocumented in this encounter Additional Health Concerns Active Problems Noted Date Diagnosed Date Heart Failure Problem 05/12/2024 Autogenerated Problem 12/23/2024 Assessment Noted Time PHQ-9 Depression Total Score: 1 01/05/20 12:49 PM CDT documented as of this encounter Care Teams Automotive Assembler Relationship Specialty Start Date End Date Delta Wade MD [address] [facility] [address] [place] [address] PCP - General Family Practice 1/3/25 documented as of this encounter
--- OUTSIDE RECORDS SUMMARY | 2025-01-07 03:02 | XMS_ITS | Encounter Summary ---
Author Organization [facility] Address [address] [place] [address] Care Team Providers Care Spray Foam Installer Name Role Phone Delta Wade MD Primary Care Provider [phone] Encounter Details Date Type Department Care Team ([facility] st Contact Info) Description 06/16/2024 Telephone [facility] Ophthalmology [address] [place] [address] 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 Gender Identity Not on file Sexual Orientation [...] Description 01/12/2025 1:40 PM CDT Office Visit [facility] [address] [facility] [address] [place] [address] Tresa Stockton, [facility] [address] [facility] [address] [place] [address] 01/25/2025 12:00 PM COLLECTION SYSTEMS FOREMAN Hospital Encounter [place] [address] [phone] Kumar Ochoa MD [address] [address] Combined forms of age-related cataract of right eye 01/25/2025 1:00 PM COLLECTION SYSTEMS FOREMAN - 01/25/2025 2:13 PM COLLECTION SYSTEMS FOREMAN Surgery [address] [phone] Kumar Ochoa MD [address] [address] CATARACT EXTRACTION IOL INSERTION FEMTO LASER ASSISTED LEVEL 1 01/26/2025 8:30 AM COLLECTION SYSTEMS FOREMAN Office Visit [facility] Op[facility] [address] [address] Eduardo Craven MD [address] [address] 02/01/2025 9:00 AM COLLECTION SYSTEMS FOREMAN Office Visit [facility] [place] [address] [place] [address] Paul Bustillos, OD [address] [place] 4th [place] [address] 02/14/2025 3:00 PM COLLECTION SYSTEMS FOREMAN Office Visit [facility] Pulmonology [address] [place] [address] [place] [address] [place] [address] Angeli Miles MD [address] [place] [address] [place] [address] Scheduled Procedures Name Priority Associated Diagnoses Date/Ti me CATARACT EXTRACTION IOL INSERTION FEMTO LASER ASSISTED LEVEL 1 Combined forms of age-related cataract of right eye Right retinal detachment 01/25/2025 1:00 PM COLLECTION SYSTEMS FOREMAN PARS PLANA VITRECTOMY WITH LASER Combined forms of age-related cataract of right eye Right retinal detachment 01/25/2025 1:00 PM COLLECTION SYSTEMS FOREMAN EYE PLACEMENT OF SILICONE OIL Combined forms of age-related cataract of right eye Right retinal detachment 01/25/2025 1:00 PM COLLECTION SYSTEMS FOREMAN documented as of this encounter Goals Goal [...] 07/28/2024 3:40 PM CDT R/O Respiratory 07/28/2024 07/28/202407/2807/28/2024 4 :53 PM CDT R/O COVID-19 08/02/2024 [...] documented as of this encounter Care Teams Spray Foam Installer Relationship Specialty Start Date End Date Delta Wade MD [address] [place] [address] PCP - General Family Practice 03/25/24 documented as of this encounter
--- OUTSIDE RECORDS SUMMARY | 2025-01-07 03:02 | XMS_ITS | Patient Health Record ---
Author Organization [facility] Address [address] [place] [address] Care Team Providers Care Wool Sampler Name Role Phone Delta Wade Primary Care Provider Unavailabl Jose Cruz Callejas Unavailable [phone] Gregorio Montes Unavailable [phone] Masoud Bello Unavailable [phone] Acacia Gaines Unavailable [phone] Chantelle Yee Unavailable [phone] Hannah Rai Unavailable [phone] Allergies Allergen (clinical drug ingredient) Drug/Non Drug Allergy documented on EMR Reaction Allergy Type Onset Date Status Compazine Unknown Drug Allergy Active ketorolac Ketorolac Unknown Drug Allergy Active Results Component Value Reference Range Notes Prothrombin Time 49309 Reviewed date:05/16/2024 05:08:19 PM Interpretation: Performing Lab: Notes/Report: trop 2nd@ 205 3510 @ 0021 3510 @ 0021 ProTime 10.8 9.1-11.9 SEC Normal Range: 9.1-11.9 INR 1.02 .90-1.20 Therapeutic Range: 2.0-3.0 Therapaeutic Range for heart valve replacement: 2.5-3.50 Partial Thromboplastin Time 94980 Reviewed date:05/16/2024 05:08:19 PM Interpretation: Performing Lab: Notes/Report: trop 2nd@ 205 3510 @ 0021 3510 @ 0021 PTT 27.1 22.6-31.8 SEC Therapeutic Range: 60-100. Critical Value Starting at > 100. zzzHeart Cath Lt poss PTCA Reviewed date:05/16/2024 05:08:19 PM Interpretation: Performing Lab: Notes/Report: [id number] Schedule Confirmation Reviewed date:07/03/2024 04:23:35 PM Interpretation: [...] This report was dictated outside of the [employer] system. trop 2nd@ 3510 @ 0021 Read [...] First Name ER Referring Provider Last Name [facility] Referring Provider Speciality Emergency Medicine Referred Organization Pending Sale To [facility] Referred Provider Jose Cruz Forde Referred Address [address] [place] [address] [address],[place], [place],[address], Referred Provider Specialty Pulmonary Di seases General Notes Joselin Lopez 025 03:08:20 PM >06/06: Gave Report to PRVDR to review, Joselin Lopez 06/07/2024 12:13:32 PM >06/07: wk per John forde Marie 06/07/2024 02:24:10 PM >06/07: Left Message, [...] Date Status Comme nts Influenza (whole), CPT 57135 Inactive Unknown 01/04/2024 Administered Social History Tobacco [...] W/U Status Risk Notes Problem Tobacco user (059504095) Nicotine dependence, cigarettes, in remission (F17.211) Active confirmed Problem Ischemic cardiomyopathy (445169180) Ischemic cardiomyopathy (I25.5) Active confirmed Problem Chronic obstructive pulmonary disease (05686281) Chronic obstructive pulmonary disease, unspecified (J44.9) Active confirmed Problem Gastro-esophageal reflux disease without esophagitis (295473244) Gastro-esophageal reflux disease without esophagitis (K21.9) Active confirmed Problem C-reactive protein abnormal (212307799) Elevated C-reactive protein (CRP) (R79.82) Active confirmed Problem Solitary pulmonary nodule (465075077) Solitary pulmonary nodule (R91.1) Active confirmed Problem Long-term current use of anticoagulant (152525478) residential (current) use of anticoagulants (Z79.01) Active confirmed Problem 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 (131130991530295) Arteriosclerosis of coronary artery (I25.10) Active confirmed Problem History of placement of stent for coronary artery disease (situation) (280342760) H/O heart artery stent (Z95.5) Active confirmed Problem Long-term current use of anticoagulant (997693901) Anticoagulated (Z79.01) Active confirmed Problem Angina (724565886) Atheroscleros is of douglas coronary artery of [place] heart with angina pectoris (I25.119) Active confirmed Problem Acute non-ST segment elevation myocardial infarction (891407718) Non-ST elevated myocardial infarction (I21.4) Active confirmed Problem History of pulmonary embolus (779701575) Hx of pulmonary embolus (Z86.711) Active confirmed Problem Coronary stent patent (300292469) Coronary stent patent (Z95.5) Active confirmed Problem Chronic respiratory failure (75314881) Chronic hypoxic respiratory failure (J96.11) Active confirmed [...] N/A Encounters Encounter Location Date Provider Diagnosis Pending Sale To [facility] [address] [place] [address] [place] [address] 06/20/2024 Jose Cruz Forde Solitary pulmonary nodule R91.1 ; Chronic hypoxic respiratory failure J96.11 ; Nicotine dependence, cigarettes, in remission F17.211 and Shortness of breath R06.02 Pending Sale To [facility] [address] [place] [address] 02/17/2024 Gregorio Montes Pending Sale To [facility] [place] [address] [address] 06/06/2024 Masoud Bello Other fracture of unspecified lumbar vertebra, initial encounter for closed fracture S32.008A Pending Sale To [facility] [place] [address] 06/30/2024 Jose Cruz Forde Assessments Encounter Date [...] for closed fracture (ICD-10 - S32.008A) 06/20/2024 Nicotine dependence, cigarettes, in remission (ICD-10 - F17.211) Patient smoked a [id number] for 45 years. She has been abstinent [...] Test Test Name Order Date Lumbosacral Spine AP/Lat-99905 5 PFT with FRC: (NO TGV) 06/20/2024 CT Chest ION Endoluminal-22040 5 Insurance Providers Payer Name Payer Address Payer Phone Subscriber Number Group Number Insured Name Patient Relationship to Insured Coverage Start Date Coverage End Date [place] Medicaid [address] [place] [address] [id number] [id number] Self - patient is the [...]
--- OUTSIDE RECORDS SUMMARY | 2025-01-07 03:03 | XMS_ITS | Data Portability ---
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 Wade MD [facility] ([facility]) [address] [place] [address]14-441 5 12/21/2024 09:09:05 12/22/2024 11:06:01 Pulmonary embolism 69892980 I26.99 INR was 0.9 recently at [place] by her report. Health Concerns Section Related Observation LastModified by Organization Detai ls LastModified Time None Recorded Concern Status LastModified by Organization Details LastModified Time None Recorded Advance Directives Directive None Recorded Payers Insurance Date Sequence Insurance Name Policy Number Policy Esquivel Covered Member ID Esquivel Member ID Guarantor Name 12/21/2024 [place] [facility] Le Barnhart [id number] Le Barnhart 10/19/2022 1 *SELF PAY* No iesha Barnhart 12/21/2024 1 [place] Le Barnhart [id number] Le Barnhart Notes Date Note Type Note Provider Name and Address Organization Details Recorded Time 06/08/19 25 text/ht ml fell 2 weeks ago and has a compression fracture of L1 vertebrae.. Delta Wade MD [address] [place] [address], [phone], [facility] L.LMileyCMiley 06/07/2024 15:21:26 09/20/19 25 text/ht ml COPDReported by PatientHPI:For associated symptoms, patient reportsdyspnea,dyspnea during exertion, andfatiguebut reportsno cough. For onset/timing, patient reportsintermittentandmultiple times per day. For duration, patient reportschronic. Would like to go off of her Ativan and would like to be put on Amitriptlyn.Would like to have a partial fill of her oxycodone, she needs enough to get by until the . The nurse at [facility] threw her pain medicines away.Patient has been hallucinating and seeing stuff that is not there.Patient would like to discuss pain medication. She has been in and out of the hospital. Delta Wade MD [address] [place] [address], [phone], [facility] 09/20/2024 13:08:19 10/13/19 25 text/ht ml Abdominal PainReported by PatientAbdominal PainFor quality, patient reportsaching. For associated symptoms, patient reportsnausea,vomiting,diarrhea, andred blood stool (had blood in her stool this am.). For location, patient reportsgeneralized. For severity, patient reportsmoderate. For duration, patient reportsconstant. Wants her pain pills filled early due to her going out of town.Would like to discuss her mass in her lung. Delta Wade MD [address] [place] [address], [phone], [facility] 10/12/2024 15:03:22 OBGyn Episode No OBEpisode recorded.
--- OUTSIDE RECORDS SUMMARY | 2025-01-07 03:03 | XMS_ITS | Encounter Summary ---
Author Organization [facility] Address [address] [place] [address] Care Team Providers Care Home Economics Teacher Name Role Phone Delta Wade MD Primary Care Provider [phone] Reason for Visit * Reason Onset Date Comments Anticoagulation 01/05/2025 Encounter Details Date Type Department Care Team ([facility] st Contact Info) Description 01/05/2025 Telephone [facility] [address] [place] [address] Veronika Yusuf, RN [address] [place] [address] Anticoagulation Social History Tobacco Use [...] any clubs o r organizations such as anglican groups, unions, fraternal or athletic groups, or [...] on file Legal Sex Female 11:49 PM TOOL RENTAL TECHNICIAN Gender Identity Not on file Sexual Orientation Not on file documented as of this encounter Miscellaneous Notes * Telephone Encounter - Veronika Yusuf, RN - 01/05/2025 10:19 AM CDT Chart reviewed by [facility] for Warfarin Education per [facility] INPATIENT ANTICOAGULATION PROTOCOL for hospital discharge Noted patient has received Anticoagulation Education within the last year on 10/2024. documented in this encounter Plan of Treatment Upcoming Encounters Date Type Department Care Team (Latest Contact Info) Description 01/12/2025 1:40 PM CDT Office Visit [facility] [address] [facility] [address] [place] [address] Tresa Stock[place], [facility] [address] [facility] [address] [place] [address] 01/25/2025 12:00 PM TOOL RENTAL TECHNICIAN Hospital Encounter [facility] [place] [address] [place] [address] Kumar Ochoa MD [address] [facility] [address] [place] [address] Combined forms of age-related cataract of right eye 01/25/2025 1:00 PM TOOL RENTAL TECHNICIAN - 01/25/2025 2:13 PM TOOL RENTAL TECHNICIAN Surgery [facility] [place] [address] [place] [phone] Kumar Ochoa MD [address] [place] [address] CATARACT EXTRACTION IOL INSERTION FEMTO LASER ASSISTED LEVEL 1 01/26/2025 8:30 AM TOOL RENTAL TECHNICIAN Office Visit [facility] [place] [address] [address] Eduardo Craven MD [address] [address] 02/01/2025 9:00 AM TOOL RENTAL TECHNICIAN Office Visit [facility] [place] [address] [address] aPul Bustillos, OD [address] [address] 02/14/2025 3:00 PM TOOL RENTAL TECHNICIAN Office Visit [facility] Pulmon[facility] [address] [place] [address] Angeli Miles MD [address] [place] [phone] Scheduled Procedures Name Priority Associated Diagnoses Date/Ti me CATARACT EXTRACTION IOL INSERTION FEMTO LASER ASSISTED LEVEL 1 Combined forms of age-related cataract of right eye Right retinal detachment 01/25/2025 1:00 PM TOOL RENTAL TECHNICIAN PARS PLANA VITRECTOMY WITH LASER Combined forms of age-related cataract of right eye Right retinal detachment 01/25/2025 1:00 PM TOOL RENTAL TECHNICIAN EYE PLACEMENT OF SILICONE OIL Combined forms of age-related cataract of right eye Right retinal detachment 01/25/2025 1:00 PM TOOL RENTAL TECHNICIAN documented as of this encounter Goals Goal [...] documented as of this encounter Care Teams Home Economics Teacher Relationship Specialty Start Date End Date Delta Wade MD [address] [place] [address] PCP - General Family Practice 03/25/24 documented as of this encounter
--- OUTSIDE RECORDS SUMMARY | 2025-01-07 03:03 | XMS_ITS | Encounter Summary ---
Author Organization [facility] Address [address] [place] [address] Care Team Providers Care Save All Operator Name Role Phone Delta Wade MD Primary Care Provider [phone] Encounter Details Date Type Department Care Team (Latest Contact Info) Description 01/05/2025 Results Follow-Up [facility] Emergency Department [address] [place] [address] Ayana Roman, RN BLOOD CULTURE, BLOOD CULTURE Social History [...] any clubs o r organizations such as mandaeism groups, unions, fraternal or athletic groups, or [...] worry about transportation for future doctor visits, rock picker medication, etc.? No 2024 Housing Stability [...] on file Legal Sex Female 11:49 PM WELT SLASHER Gender Identity Not on file Sexual Orientation Not on file documented as of this encounter Plan of Treatment Upcoming Encounters Date Type Department Care Team (Latest Contact Info) Description 01/12/2025 1:40 PM CDT Office Visit [facility] [address] [facility] [address] [place] [address] Tresa Stock[place], [facility] [address] [facility] [address] [place] [address] 01/25/2025 12:00 PM WELT SLASHER Hospital Encounter [facility] [address] [phone] Kumar Ochoa MD [address] [address] Combined forms of age-related cataract of right eye 01/25/2025 1:00 PM WELT SLASHER - 01/25/2025 2:13 PM WELT SLASHER Surgery [facility] [address] [place] [phone] Kumar Ochoa MD [address] [address] CATARACT EXTRACTION IOL INSERTION FEMTO LASER ASSISTED LEVEL 1 01/26/2025 8:30 AM WELT SLASHER Office Visit [facility] [place] [address] [phone] Eduardo Craven MD [address] [place] [address] [place] [address] 02/01/2025 9:00 AM WELT SLASHER Office Visit [facility] [place] [address] [place] [address] [address] Paul Bustillos, [address] [place] [place] [address] 02/14/2025 3:00 PM WELT SLASHER Office Visit [facility] Pulmonology [address] [place] [address] [place] [address] Angeli Miles MD [address] [place] [address] Scheduled Procedures Name Priority Associated Diagnoses Date/Ti me CATARACT EXTRACTION IOL INSERTION FEMTO LASER ASSISTED LEVEL 1 Combined forms of age-related cataract of right eye Right retinal detachment 01/25/2025 1:00 PM WELT SLASHER PARS PLANA VITRECTOMY WITH LASER Combined forms of age-related cataract of right eye Right retinal detachment 01/25/2025 1:00 PM WELT SLASHER EYE PLACEMENT OF SILICONE OIL Combined forms of age-related cataract of right eye Right retinal detachment 01/25/2025 1:00 PM WELT SLASHER documented as of this encounter Goals Goal [...] documented as of this encounter Care Teams Save All Operator Relationship Specialty Start Date End Date Delta Wade MD [address] [address] PCP - General Family Practice 03/25/24 documented as of this encounter
--- OUTSIDE RECORDS SUMMARY | 2025-01-07 03:03 | XMS_ITS | Patient Health Record ---
Author Organization [facility] Address [address] [place] [address] Care Team Providers Care Heel Turner Name Role Phone ( [facility] ), PHYSICIAN NOT IDENTIFIED Primary Care Provider Unavailable DR. Dominguez Mckay Unavailable [phone] Kyler Martin Unavailable [phone] Allergies Allergen (clinical drug ingredient) Drug/Non Drug [...] Female Encounters Encounter Location Date Provider Diagnosis [facility] [address] [place] [phone] 06/08/2024 Dominguez Mckay [address] [place] [address] [address] [place] [address] 09/28/2024 Dominguez Mckay Plan Of Treatment No Information Insurance Providers Payer Name Payer Address Payer Phone Subscriber Number Group Number Insured Name Patient Relationship to Insured Coverage Start Date Coverage End Date Medicaid Dental [address] [place] [address] [phone] [id number] Le Barnhart Self - patient is the insured Medicaid [address] [place] [address] [id number] Le Barnhart Self - patient is the insured Medical (General) History Medical History History ICD Code heart murmer diabetes emphysema cancer chemotherapy high bp radiation treatment
[2025-01-07 03:09] VITALS: BMI 36.3
--- NOTE | 2025-01-07 03:10 | ECG_ITS ---
[facility] [employer] Test Date: 2025-01-07 Pat Name: Le Barnhart Department: Room: Gender: Female Sales Merchandising Specialist: : 1965 Requested By: Jonathan Rice Order Number: [id number] Lopez MD: David Escalante M.D. Measurements Intervals [place] Rate: 106 P: 254 [place]: 132 QRS: 43 QRSD: 93 T: -47 QT: 327 QTc: 435 Interpretive Statements ECTOPIC ATRIAL TACHYCARDIA POSSIBLE INFERIOR MYOCARDIAL INFARCTION , OF INDETERMINATE AGE [30 ms Q WAVE IN II/aVF] Compared to ECG 11/13/2024 01:23:28 Sinus rhythm no longer present Myocardial infarct finding still present Electronically Signed On 01-07-2025 11:56:47 CDT by David Escalante M.D. [email or web address]
[2025-01-07 03:12] VITALS: BP 120/58; PULSE 100; RESP 20; TEMP 36.6; O2SAT 95
--- NOTE | 2025-01-07 03:25 | XRR_ITS ---
PROCEDURE INFORMATION: Exam: XR Chest Exam date and time: 01/07/2025 3:38 AM Age: 59 years old Clinical indication: Chest pressure; Prior surgery; Surgery date: 6+ months; Surgery type: Cervical fusion; C/O chest pain; Additional info: Cp TECHNIQUE: Imaging protocol: Radiologic exam of the chest. Views: 1 view. COMPARISON: CR XR chest 1V portable [id number] 11/13/2024 1:52 AM FINDINGS: Lungs: Mild COPD. Minor areas of bibasilar atelectasis or scarring. Pleural spaces: No pneumothorax. Heart/Mediastinum: The heart is large. Vascular calcification. Bones/joints: Lower cervical fusion. XR/XR chest 1V portable [id number] IMPRESSION: As above, stable chest from 11/13/2024.
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
[2025-01-07 04:18] LABS: Hematocrit 38.8 % (36-47); Hemoglobin 11.80 g/dL (11.27-16.99); Mean Corpuscular HGB Conc 30.4 g/dL (30-55); Mean Corpuscular Hemoglobin 28.8 pg (27-33); Mean Corpuscular Volume 94.6 fl (85-98); Platelet Count 193 10^3/cmm (157-399); Red Blood Count 4.10 10^6/uL (3.85-5.65); White Blood Count 6.84 10^3/uL (3.29-11.43)
[2025-01-07 04:26] VITALS: RESP 20; O2SAT 90
[2025-01-07 04:26] LABS: Slide Review Slide Review Perform
[2025-01-07] MEDS: morphine 4 mg/mL SDV 1 mL IVP (04:26)
[2025-01-07] MEDS: ondansetron 2 mg/ML SDV 2 mL 4 MG IVP (04:27)
[2025-01-07 04:40] LABS: Troponin(5th) Baseline 26 ng/L (0-10)
[2025-01-07 04:42] LABS: Alanine Aminotransferase 21 U/L (0-33); Albumin Level 3.8 g/dL (3.5-5.2); Alkaline Phosphatase 164 U/L (35-105); Aspartate Amino Transferase 14 U/L (0-32); Blood Urea Nitrogen 22 mg/dL (6-20); Calcium 9.9 mg/dL (8.5-10.5); Carbon Dioxide 29 mmol/L (22-29); Chloride 99 mmol/L (98-107); Creatinine Clr Calc Pharmacy 113.6102; Globulin 2.9 g/dL (1.3-4.6); Glucose 231 mg/dL (65-115); Lipase 15 U/L (13-60); Osmolality Calculated 301 mOsm/kg (285-295); Sodium 140 mmol/L (136-145); Total Protein 6.7 g/dL (6.6-8.7)
[2025-01-07 04:53] LABS: INR 1.40 (0.8-1.2); Prothrombin Time 18.10 SECONDS (12.1-14.9)
[2025-01-07 05:07] LABS: Anion Gap 15.6 (5-19); Potassium 3.6 mmol/L (3.5-5.1)
[2025-01-07 05:34] LABS: Absolute Segmented Neutrophil 3.8 10/cmm (1.6-7.1); Atypical Lymphs 8.0 % (0-5); Band Neutrophils Absolute 0.1 10^3/cmm (0.0-1.2); Total Cells Counted 100 (0-100)
[2025-01-07 05:35] LABS: Anisocytosis Trace; Giant Platelets Trace; Hypochromasia Trace; Macrocytosis Trace; Smudge Cells Trace; Target Cells Trace
== END 2025-01-07 05:37 | disposition home or self-care (01) ==
PROVIDERS: Emergency Provider Emergency Medicine; PCP Family Medicine
DX: R07.9 Chest pain, unspecified (principal); Z79.01 Long term (current) use of anticoagulants; Z79.85 Long-term (current) use of injectable non-insulin antidiabetic drugs; Z79.4 Long term (current) use of insulin; Z87.891 Personal history of nicotine dependence; I25.10 Atherosclerotic heart disease of native coronary artery without angina pectoris; J44.9 Chronic obstructive pulmonary disease, unspecified; I10 Essential (primary) hypertension
CPT/HCPCS: 71045; 80053; 83690; 84484; 85007; 85025; 85610; 93005; 96374; 96375; 99285; J2270; J2405

== ENCOUNTER 2025-01-15 13:36 | Emergency (ER) | payer MEDICAID, SELFPAY ==
--- OUTSIDE RECORDS SUMMARY | 2020-06-27 10:30 | XMS_ITS | Continuity of Care Document ---
Author Organization [facility] Address [address] [place] [address] Phone Care Team Providers Care Chronic Care Nurse Name Role Phone Unavailable Unavailable Unavailable Allergies, [...] - Active Procedures Procedure Date OFFICE/OUTPATIENT VISIT, [facility] Advance Directives Directive Yes / No Effective Date File Name No Information Encounters Encounter Description Practice Location Reason(s) For Visit Diagnoses Date Provider Providers Copied on Encounter OFFICE/OUTPA TIENT VISIT, [facility], [address], [place], [place], [address] , [place] tel: [phone] [facility] follow up [...] republican ID Authoriza dioni(s) Medicaid - Medical [id number] Social History Type Description Quantity Date Captured [...] her vagina and is being managed at [facility]. Patient has HTN, hip pain, [...] her vagina and is being managed at [facility]. Patient has HTN, hip pain, [...]
--- OUTSIDE RECORDS SUMMARY | 2024-02-03 06:00 | XMS_ITS ---
Author Organization [facility] Address [address] [place] [phone] Care Team Providers Care Chemistry Intern Name Role Phone ( [facility] ), PHYSICIAN NOT IDENTIFIED Primary Care Provider Unavailable Kyler Martin Unavailable [phone] REASON FOR VISIT wants bottom dentures needs slide - Eugenia if needed Social History Sex Assigned At : Social History Observation Description Sex Assigned At Female Encounters Encounter Location Date Provider Diagnosis [address] [place] [address] Dental Clinic [address] [place] [phone] 02/03/2024 Kyler Martin Plan Of Treatment Next Appt Details Provider Name:Dominguez Mckay , 01/16/2025 08:00:00 AM, [address] [place] [address], [phone], Progress Notes * Zhang DIAZaDOB:1965 (59 yo F)Acc No.[id number]:02/03/2024 Patient: Le Colindres Provider: Tawanda Martin DMD :1965 A ge:58 Y S ex:Female Date:02/03/2024 Address:[address] [place], [place] [phone] Pcp:PHYSICIAN NOT IDENTIFIED ( [facility] ) Subjective: * Chief Complaints: * w ants bottom dentures needs slide - Eugenia if needed Billing Information: * Procedure Codes: * Electronic signature of Antelmo Martin DMD on 01/15/2025 at 01:43 PM CDT Sign off status: Pending * Provider: Tawanda Martin DMD Date: 1 04/04/2023 Generated for Mani contreras/Moshe/Binta on: 01:43 PM CDT
--- OUTSIDE RECORDS SUMMARY | 2024-04-27 08:00 | XMS_ITS ---
Author Organization [facility] Address [address] [place] [address] Care Team Providers Care Washer Blanket Name Role Phone Delta Wade Primary Care Provider Jose Cruz Harvey Unavailable [phone] Hannah Rai Unavailable [phone] REASON FOR VISIT S/P [facility], Jahaira 04/06/24 Encounters Encounter Location Date Provider Diagnosis [facility] [address] [place] [phone] 04/27/2024 Hannah Rai Non-ST elevated myocardial infarction [...] * GIANFRANCO DIAZDOB: 6 (59 yo F)Acc No.[id number]:04/27/2024 Patient: Jahaira ZORAIDAGIANFRANCO KANG Provider: Tawanda Rai APN :1965 A ge:58 Y S ex:Female Date:04/27/2024 Address:[address] [place], [place] [phone] Pcp:Delta Wade Subjective: * Chief Complaints: * [...] Electronic signature of Eliu Rai APRN on 01/15/2025 at 01:44 PM CDT Sign off status: Pending * Provider: Tawanda Rai APN Date: 0 04/27/2024 Generated for Mani contreras/Moshe/Binta on: 1 01:44 PM CDT
--- OUTSIDE RECORDS SUMMARY | 2024-05-06 05:30 | XMS_ITS ---
Author Organization [facility] Address [address] [place] [address] Care Team Providers Care Video Producer Name Role Phone Delta Wade Primary Care Provider Jose Cruz Harvey Unavailable [phone] Acacia Gaines Unavailable [phone] [facility] 04/[facility] Encounters Encounter Location Date Provider Diagnosis [facility] [address] [place] [phone] 05/06/2024 Acacia Gaines Plan Of Treatment No [...] mitral regurgitation. Prior cardiac care was in [place]. She was admitted to the hospital with chest discomfort on April 04 and ruled in for non-ST elevation [place]. Patient was evaluated by Dr. Nunez and [...] GIANFRANCO DIAZ JDOB: [birth year] (59 yo F)Acc No.[id number]:05/06/2024 Patient: GIANFRANCO GARCIA Provider: Cameron Gaines NP :1965 A ge:58 Y S ex:Female Date:05/06/2024 Address:[address] [place], [place] [phone] Pcp:Delta Wade Subjective: * Chief Complaints: * [...] mitral regurgitation. Prior cardiac care was in [place]. She was admitted to the hospital with chest discomfort on April 04 and ruled in for non-ST elevation [place]. Patient was evaluated by Dr. Nunez and [...] Codes: * Electronic signature of CRIS Ellis, BASE FILLER OPERATOR-C on 01/15/2025 at 01:43 PM CDT Sign off status: Pending * Provider: Cameron Gaines NP Date: 0 05/06/2024 Generated for Mani contreras/Moshe/Adrianitting on: 1 01:43 PM CDT
--- OUTSIDE RECORDS SUMMARY | 2024-07-08 05:30 | XMS_ITS ---
Author Organization [facility] Address [address] [place] [address] Care Team Providers Care Slitter Creaser Slotter Helper Name Role Phone Delta Wade Primary Care Provider Jose Cruz Harvey [phone] Encounters Encounter Location Date Provider Diagnosis [facility] [address] [place] [address] [place] [address] 07/08/2024 Jose Cruz Forde Plan Of Treatment No Information Progress Notes * GIANFRANCO DIAZDOB: 6 (59 yo F)Acc No.[id number]:07/08/2024 Patient: Jahaira HANNA GIANFRANCO Page Provider: Abdirahman Forde MD :1965 A ge:58 Y S ex:Female Date:07/08/2024 Address:[address] [place], [place] [phone] Pcp:Delta Wade * Electronic signature of Natasha Forde MD on 01/15/2025 at 01:44 PM CDT Sign off status: Pending * Provider: Abdirahman Forde MD Date: 0 07/08/2024 Generated for Printi ng/Faxing/eTransmitting on: 1 01:44 PM CDT
--- OUTSIDE RECORDS SUMMARY | 2024-07-12 09:00 | XMS_ITS ---
Author Organization [facility] Address [address] [place] [address] Care Team Providers Care Toxicologist Name Role Phone Delta Wade Primary Care Provider Jose Cruz Hravey [phone] REASON FOR VISIT [phone] Encounters Encounter Location Date Provider Diagnosis [facility] [address] [place] [address] [place] [address] 07/12/2024 Jose Cruz Forde Plan Of Treatment No Information Progress Notes * GIANFRANCO DIAZDOB: [birth year] (59 yo F)Acc No.[id number]:07/12/2024 Pulmonary Function Test Patient: Jahaira GIANFRANCO HANNA Provider: Abdirahman oFrde MD :1965 A ge:59 Y S ex:Female Date:07/12/2024 Address:[address] [place], [place] [phone] Pcp:Delta Wade Subjective: * Chief Complaints: * 6 [id number] Billing Information: * Procedure Codes: * Electronic signature of Natasha Forde MD on 01/15/2025 at 01:42 PM CDT Sign off status: Pending * Provider: Abdirahman Forde MD Date: 0 07/12/2024 Generated for Mani contreras/Moshe/eTransmitting on: 01:42 PM CDT
--- OUTSIDE RECORDS SUMMARY | 2024-07-12 10:00 | XMS_ITS ---
Author Organization [facility] Address [address] [facility] [address] Care Team Providers Care Incident Manager Name Role Phone Delta Wade Primary Care Provider Jose Cruz Harvey [phone] REASON FOR VISIT [phone] Encounters Encounter Location Date Provider Diagnosis [facility] [address] [place] [address] [place] [address] 07/12/2024 Jose Cruz Forde Plan Of Treatment No Information Progress Notes * GIANFRANCO DIAZDOB: 6 (59 yo F)Acc No.[id number]:07/12/2024 Progress Notes Patient: Jahaira GIANFRANCO HANNA Provider: Abdirahman Fored MD :1965 A ge:59 Y S ex:Female Date:07/12/2024 Address:[address] [place], [place] [phone] Pcp:Delta Wade Subjective: * Chief Complaints: * 6 [id number] Billing Information: * Procedure Codes: Care Plan Details* * Electronic signature of Natasha Forde MD on 01/15/2025 at 01:43 PM CDT Sign off status: Pending * Provider: Abdirahman Forde MD Date: 0 07/12/2024 Generated for Sydnii diane/Moshe/eTransmitting on: 01:43 PM CDT
--- OUTSIDE RECORDS SUMMARY | 2024-07-13 04:30 | XMS_ITS ---
Author Organization [facility] Address [address] [place] [address] Care Team Providers Care Steam Pan Sponger Name Role Phone ( [facility] ), PHYSICIAN NOT IDENTIFIED Primary Care Provider DR. Dominguez Pate Unavailable [phone] REASON FOR VISIT cavity on lower- Social History Sex Assigned At : Social History Observation Description Sex Assigned At Female Encounters Encounter Location Date Provider Diagnosis [address] [place] [address] Dental Clinic [address] [place] [phone] 07/13/2024 Dominguez Mckay Plan Of Treatment Next Appt Details Provider Name:Dominguez Mckay , 01/16/2025 08:00:00 AM, [address], [address], Progress Notes * Zhang DIAZaDOB:1965 (59 yo F)Acc No.[id number]:07/13/2024 Patient: Le Colindres Provider: Jahaira Mckay DDS :1965 A ge:59 Y S ex:Female Date:07/13/2024 Address:[address] [place] [address] Pcp:PHYSICIAN NOT IDENTIFIED ( [facility] ) Subjective: * Chief Complaints: * C avity on lower- Billing Information: * Procedure Codes: * Electronic signature of DR. Dominguez Mckay DDS on 01/15/2025 at 01:42 PM CDT Sign off status: Pending * Provider: Jahaira Mckay DDS Date: 0 07/13/2024 Generated for Mani contreras/Moshe/Binta on: 1 01:42 PM CDT
--- OUTSIDE RECORDS SUMMARY | 2024-07-19 03:00 | XMS_ITS ---
Author Organization [facility] Address [address] [facility] [place] [address] Care Team Providers Care Steel Chipper Name Role Phone Delta Wade Primary Care Provider Jose Cruz Harvey [phone] REASON FOR VISIT [phone] Encounters Encounter Location Date Provider Diagnosis [facility] [address] [place] [address] [place] [address] 07/19/2024 Jose Cruz Forde Plan Of Treatment No Information Progress Notes * GIANFRANCO DIAZDOB: 6 (59 yo F)Acc No.[id number]:07/19/2024 Pulmonary Function Test Patient: Jahaira GIANFRANCO HANNA Provider: Abdirahman Forde MD :1965 A ge:59 Y S ex:Female Date:07/19/2024 Address:[address] [place], [place] [phone] Pcp:Delta Wade Subjective: * Chief Complaints: * 6 [id number] Billing Information: * Procedure Codes: * Electronic signature of Natasha Forde MD on 01/15/2025 at 01:43 PM CDT Sign off status: Pending * Provider: Abdirahman Forde MD Date: 0 07/19/2024 Generated for Mani contreras/Moshe/eTransmitting on: 01:43 PM CDT
--- OUTSIDE RECORDS SUMMARY | 2024-07-19 05:10 | XMS_ITS ---
Author Organization [facility] Address [address] [facility] [place] [address] Care Team Providers Care Organic Lab Worker Name Role Phone Delta Wade Primary Care Provider Jose Cruz Harvey [phone] REASON FOR VISIT abnormal chest CT Medications [...] Active Encounters Encounter Location Date Provider Diagnosis [facility] [address] [place] [address] [place] [address] 07/19/2024 Jose Cruz Forde Solitary pulmonary nodule [...] remission (ICD-10 - F17.211) Patient smoked a yesp-gny-ita for 45 years. She has been abstinent [...] cigaret taiwo, in remission Patient smoked a aasj-qmc-lhs for 45 yea rs. She has been [...] ION 07/08/24 but was hospitalized twice at [facility] and unable to complete her pre-surgical testing. [...] DIAZ, GIANFRANCO PageDOB: 6 (59 yo F)Acc No.[id number]:07/19/2024 Progress Notes Patient: GIANFRANCO GARCIA Provider: Abdirahman Forde MD :1965 A ge:59 Y S ex:Female Date:07/19/2024 Address:[address] [place], [place] [phone] Pcp:Delta Wade Subjective: * Chief Complaints: * [...] ION 07/08/24 but was hospitalized twice at [facility] and unable to complete her pre-surgical testing. ION rescheduled for 07/22/24 -ION CT. * ROS: Juliette cain of systems of [facility] has been reviewed and scanned [...] 1 TABLET BY MOUTH EVERY DAY Oral Wca-AkarbaFFZXByixzqj-Ggivzjwvrynfy 5-325 MG Tablet TAKE 1 TABLET BY [...] cigarettes, in remission Notes: Patient smoked a hhdq-uat-gqj for 45 years. She has been abstinent [...] 07/19/2024 Generated for Mani contreras/Moshe/Adrianitting on: 1 01:42 PM CDT
--- OUTSIDE RECORDS SUMMARY | 2024-07-22 05:00 | XMS_ITS ---
Author Organization [facility] Address [address] [place] [address] Care Team Providers Care Plant Changer Name Role Phone Delta Wade Primary Care Provider Jose Cruz Harvey [phone] Encounters Encounter Location Date Provider Diagnosis [facility] [address] [place] [address] [place] [address] 07/22/2024 Jose Cruz Forde Plan Of Treatment No Information Progress Notes * GIANFRANCO DIAZDOB: 6 (59 yo F)Acc No.[id number]:07/22/2024 Patient: Jahaira HANNA GIANFRANCO Page Provider: Abdirahman Forde MD :1965 A ge:59 Y S ex:Female Date:07/22/2024 Address:[address] [place], [place] [phone] Pcp:Delta Wade * Electronic signature of Natasha Forde MD on 01/15/2025 at 01:45 PM CDT Sign off status: Pending * Provider: Abdirahman Forde MD Date: 0 07/22/2024 Generated for Printi ng/Faxing/eTransmitting on: 1 01:45 PM CDT
--- OUTSIDE RECORDS SUMMARY | 2024-08-23 05:00 | XMS_ITS ---
Author Organization [facility] Address [address] [place] [phone] Care Team Providers Care Rn Examiner Name Role Phone ( [facility] ), PHYSICIAN NOT IDENTIFIED Primary Care Provider DR. Dominguez Pate Unavailable [phone] REASON FOR VISIT TA - Filling Social History Sex Assigned At : Social History Observation Description Sex Assigned At Female Encounters Encounter Location Date Provider Diagnosis [address] [place] [address] Dental Clinic [address] [place] [phone] 08/23/2024 Dominguez Mckay Plan Of Treatment Next Appt Details Provider Name:Dominguez Mckay , 01/16/2025 08:00:00 AM, [address], [address], Progress Notes * Zhang DIAZaDOB:1965 (59 yo F)Acc No.[id number]:08/23/2024 Patient: Le Colindres Provider: Jahaira Mckay DDS :1965 A ge:59 Y S ex:Female Date:08/23/2024 Address:[address] [place] [address] Pcp:PHYSICIAN NOT IDENTIFIED ( [facility] ) Subjective: * Chief Complaints: * T A - Filling Billing Information: * Procedure Codes: * Electronic signature of DR. Dominguez Mckay DDS on 01/15/2025 at 01:43 PM CDT Sign off status: Pending * Provider: Jahaira Mckay DDS Date: 0 08/23/2024 Generated for Mani contreras/Moshe/Binta on: 1 01:43 PM CDT
--- OUTSIDE RECORDS SUMMARY | 2024-09-07 03:30 | XMS_ITS ---
Author Organization [facility] Address [address] [place] [phone] Care Team Providers Care Digital Analyst Name Role Phone ( [facility] ), PHYSICIAN NOT IDENTIFIED Primary Care Provider DR. Dominguez Pate Unavailable [phone] REASON FOR VISIT TA causing alot of [place]-pt wants filling done- told pt it was a limited not restore appt Social History Sex Assigned At : Social History Observation Description Sex Assigned At Female Encounters Encounter Location Date Provider Diagnosis [address] [place] [address] Dental Clinic [address] [place] [phone] 09/07/2024 Dominguez Mckay Plan Of Treatment Next Appt Details Provider Name:Dominguez Mckay , 01/16/2025 08:00:00 AM, [address] [place] [address], [phone], Progress Notes * Zhang DIAZaDOB:1965 (59 yo F)Acc No.[id number]:09/07/2024 Patient: Le Colindres Provider: Jahaira Mckay DDS :1965 A ge:59 Y S ex:Female Date:09/07/2024 Address:[address] [place] [address] Pcp:PHYSICIAN NOT IDENTIFIED ( [facility] ) Subjective: * Chief Complaints: * T A causing alot of [place]-pt wants filling done- told pt it was a limited not restore appt Billing Information: * Procedure Codes: * Electronic signature of DR. Dominguez Mckay DDS on 01/15/2025 at 01:41 PM CDT Sign off status: Pending * Provider: Jahaira Mckay DDS Date: 0 09/07/2024 Generated for Mani contreras/Moshe/Binta on: 1 01:41 PM CDT
--- OUTSIDE RECORDS SUMMARY | 2025-01-07 22:54 | XMS_ITS | Encounter Summary ---
Author Organization [facility] Address 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 * Auth/Cert (Routine) Specialty Diagnoses / Procedures Referred By Contac t Referred To Contact Emergency Medicine [facility] Emergency Department [address] [place] [phone] Phone: tel: fax: Referral ID Status Reason Start Date Expiration Date Visits Re quested Visits Authorized [id number] 1 1 Encounter Details Date Type Department Care Team (Latest Contact Info) Description 01/07/2025 10:54 PM CDT - 01/09/2025 12:29 PM CDT Hospital Encounter [facility] 4B Cardiac [address] [place] [id number] Tresa Mueller MD [address] [place] [phone] Stefanie Ferrara MD [address] [place] [phone] Kapil Deluna DO [address] [place] [address] Acute on chronic combined systolic (congestive) and diastolic (congestive) heart failure Discharge Disposition: Home or Self [...] any clubs o r organizations such as scientologist groups, unions, fraternal or athletic groups, or [...] because you can t pay for food? Prefer not to answer 01/07/2025 Transportation Needs Answer Date Record ed Have you gone without health care because you didn t have a way to get there? 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 Prefer not to answer 01/07/2025 Housing Stability Answer Date Recorded Do you worry you won t have a steady place to sleep or struggle to pay rent or mortgage? Prefer not to answer 01/07/2025 Utility Needs Answer Date Recorded Do you have difficulty payin g for utility costs (electric, water or gas bills)? Prefer not to answer 01/07/2025 Medication Needs Answer Date Recorded Have you skipped taking medi cation due to cost or worry you can t afford new medications? Prefer not to answer 01/07/2025 Feeling Safe Answer Date Recorded Are you in a relationship wi th someone who hurts you emotionally and/or physically? 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 Gender Identity Not on file Sexual Orientation Not on file documented as of this encounter Last Filed Vital Signs Vital Sign Reading Time Taken Comments Blood Pressure 128/69 01/09/2025 10:51 AM CDT Pulse 70 01/09/2025 10:51 AM CDT Temperature 36.1 C (97 F) 01/09/2025 10:51 AM CDT Respiratory Rate 16 01/09/2025 10:5 1 AM CDT Oxygen Saturation 96% 01/09/2025 10: 51 AM CDT Inhaled Oxygen Concentration - - Weight 101.8 kg (224 lb 6.9 oz) 01/09/2025 4:44 AM CDT Height 162.6 cm (5' 4 ) 01/08/2025 6:09 AM CDT Body Mass Index 38.52 01/08/2025 6:09 AM CDT documented in this encounter Discharge Summaries * Kapil Deluna DO - 01/09/2025 9:17 AM CDT Images from the original note were not included. [facility]ist- Discharge Summary Le Diaz 59 y.o. female 1965 CSN: [id number] Date of Admission: 01/07/2025 Date of Discharge: 01/09/2025 LOS: 0 days Discharging Physician: Kapil Deluna DO PCP: Delta Wade MD Code Status at Discharge: Full Code Dispo: Home Labs and studies from this hospitalization needing follow up: Will need repeat INR in 3-5 days. Recommend repeat CBC and CMP in 3-5 days. Follow up with PCP: Follow-up: You must follow up with Delta Wade MD in 3-5 days Follow up with Consultants: With cardiology as scheduled on 01/12/2025. Discharge Condition: improved to baseline Primary Discharge Diagnosis: Acute on chronic combined systolic (congestive) and diastolic (congestive) heart failure Other Active medical issues also addressed during this admission: Active Hospital Problems Diagnosis Obesity (BMI 30-39.9) Type 2 diabetes mellitus with hyperglycemia, with long-term current use of insulin Chronic anticoagulation CAD (coronary atherosclerotic disease) Benign hypertension Chronic respiratory failure with hypoxia, on home O2 therapy (CMS/[facility]) Neuropathy History of pulmonary embolism Chronic pain syndrome GERD (gastroesophageal reflux disease) Mixed hyperlipidemia Bipolar affective disorder (CMS/HCC) Resolved Hospital Problems Diagnosis Date Resolved Syncope and collapse 01/09/2025 Acute exacerbation of chronic obstructive pulmonary disease (CMS/HCC) 01/09/2025 Chest pain 01/09/2025 Dyspnea 01/09/2025 Acute on chronic combined systolic (congestive) and diastolic (congestive) heart failure 01/09/2025 HOSPITAL COURSE: Please see H and P for full details on admission, symptoms and initial care. Le Diaz is a 59 y.o. female with history of essential hypertension, dyslipidemia, CAD s/p stent placement, chronic combined systolic/diastolic CHF with recovered EF, COPD, chronic hypoxic respiratory failure on 3-4 L, GERD, generalized anxiety disorder/bipolar disorder, insulin-dependent type 2 diabetes, history of PE on chronic warfarin, chronic pain syndrome, history of splenectomy, obesity, former tobacco use, who presented to our facility for further evaluation of dyspnea, orthopnea and possible syncope. Patient was very recently discharged from our facility on 01/06/2025 after being admitted for acute on chronic CHF. On that admission, patient briefly required BiPAP support and was placed on IV diuresis. NMST was also performed revealing a moderate size/intensity, mostly fixedinferior/inferolateral defect with minimal reversibility resembling possible injury/very mild pedro-infarction ischemia in RCA distribution; a similar perfusion defect was already noted on cardiac PET/CT September 2024. On current presentation, patient presented to our facility on the evening of 01/07 after developingrapidly worsening dyspnea, orthopnea, possible wheezing, and and possible syncope. Patient reportedthat she was sitting at the edge of her bed when the symptoms suddenly came on. Complained of significant orthopnea when trying to lay down in bed and had to sit back up. While sitting at edge of bedreported having possible syncopal event for an unknown amount of time; preceding this felt a pressure in the back of her head. She denied any associated diaphoresis, nausea, vomiting, jaw/shoulder/arm pain or paresthesias during the event. She denied any chest pain/pressure during the event but did report some mild chest pain/pressure sometime afterwards. Reported increasing bilateral lower extremity edema since returning home from recent hospitalization. Reported compliance with all of her home medications including inhalers and diuretics. On arrival to our facility found to be hemodynamically stable, afebrile, tachycardic HR 111, saturating low to mid 90s on baseline 4 L. Labs revealed normal WBC 6.5, hemoglobin 10.4, platelets 176, sodium 141, K3.5, creatinine 0.58, AST 17, ALT 21, proBNP 110, subtherapeutic INR 1.4. Troponins elevated but flat 23, 24 and similar from prior. CTA chest without evidence of PE; no evidence of cardiopulmonary disease; stable chronic LLL basilar consolidation. EKG with sinus tachycardia and no acuteischemic changes appreciated; EKG similar to prior recent EKGs. Due to possible COPD exacerbation, patient was given IV Solu-Medrol 125 mg x 1 and DuoNeb in the ED. Due to subtherapeutic INR was given dose of warfarin 20 mg p.o. x 1. Subsequently admitted to the hospitalist service for further management. After admission, patient's p.o. Lasix was held and instead restarted on IV Lasix for suspected acute on chronic CHF causing her symptoms. Patient rapidly improved by the morning of 01/09. She felt back to her usual baseline and ready for discharge. She refused any further lab draws or IV Lasix. Sheappeared to be medically stable for discharge, and was discharged back home on her prior medicationregimen as noted below. Patient counseled on the importance of adhering to a low-sodium diet and all of her usual medications. Of note, there is concern for medication/lifestyle nonadherence, as evidenced by multiple hospitalizations this year mostly for respiratory concerns. Patient is at high risk for readmission. Regarding possible syncope, upon discussion with patient syncopal events may be secondary to hypoxia. For example, patient reported recently coming back from the grocery store with her family, and upon exiting the car she did not keep her supplemental O2 on, resulting in syncope by the time she ambulated to her house. Patient was found with her supplemental O2 off (on top of her head, on the floor ) multiple times this admission. Patient counseled importance of keeping supplemental O2 and her nostrils at all times. Telemetry this admission without any arrhythmias to suggest cause for her syncope. Of note, on admission patient was also started on IV steroids although there was no documented wheezing in ED or on admission. COPD exacerbation was felt to be less likely and steroids discontinued. Patient also sustained temporary, severe hyperglycemia in the setting of IV steroids. Patient recommended to follow-up with her PCP in 3-5 days, and with cardiology as scheduled on 01/12/2025. Patient was given additional dose of warfarin this admission for subtherapeutic INR and recommended to continue present dose of warfarin with routine follow-up at INR clinic in 3-5 days for repeat labs. PCP COMMUNICATION : Delta Wade MD via [employer] communication MEDICATION CHANGES (significant): - No medication changes made this admission. MEDICATION RECONCILIATION: Current and discharge medications reviewed and reconciled: Yes Consultants: IP CONSULT TO IV TEAM IP CONSULT TO CARDIOLOGY Procedures performed: 01/10 0882 Note By: Yovany Arango, RVT 01/07 3255 Note By: Elisha Jeter, fire lieutenant: US VENOUS DOPPLER LEG BILATERAL Final Result CTA CHEST W AND/OR WO CONTRAST Final Result IMPRESSION: No evidence of acute cardiopulmonary disease; negative for pulmonary embolism. Stable left lower lobe basilar consolidation. Mild multichamber cardiomegaly with moderate three-vessel coronary atherosclerosis. XR CHEST PA OR AP 1 VW Final Result IMPRESSION: Increased opacities in the lung bases probably represent atelectasis from central vascular congestion or pneumonia in appropriate clinical setting. DISCHARGE MEDICATIONS: Medication List CONTINUE taking these medications acetaminophen 325 mg [...] Myron Burk Quantity: 1 Each Refills: 0 empagliflozin 10 mg tablet Commonly [...] mg) by mouth daily. Signed by: Dr. uJliette Romano Quantity: 30 Tablet Refills: 3 miconazole 2 % Cream Commonly known as: SEAN,MICOTIN,REMEDY AF Apply to affected area 2 times daily. Signed by: Dr. Ofelia Chen Quantity: 15 Gram Refills: 0 naloxone 4 mg/spray [place], Non-Aerosol Commonly known as: NARCAN EMERGENCY USE [...] glucose DAILY Refills: 0 Generic drug: lancets pantoprazole 40 mg Tablet, Delayed Release (E.C.) Commonly known as: PROTONIX Take 1 Tablet (40 mg) by mouth daily before breakfast. Signed by: Dr. Pio Elaine Quantity: 30 Tablet Refills: 0 portable oxygen Face to Face [...] Puffs by inhalation daily. Signed by: Dr. Bala Deluna Quantity: 4 Gram Refills: 0 triamcinolone acetonide 0.1 % Ointment [...] medication list carefully. STOP taking these medications oxygen home delivery Where to Get Your Medications These medications were sent to [facility]/pharmacy #[id number] - [place], [place] - [address] [facility] [address], [facility] [address] Hours: M-F [id number] Sat [id number] Sun closed tiotropium-olodateroL 2.5-2.5 mcg/actuation metered inhaler Future Appointments Date Time Provider Department Center 01/12/2025 1:[address] [facility] 01/26/2025 8:30 AM Eduardo Craven MD [facility] 02/01/2025 9:00 AM [facility] 02/14/2025 3:00 PM Angeli Miles MD [facility] Activity level: up as tolerated Diet: DIET DIABETIC Fluid/day: 1800 ML Fluid,; 2GM Sodium (Low), Wound Care: Not Applicable DISCHARGE EXAM: BP 127/66 (BP Location: Left arm, Patient Position (BP): Lying right side) Pulse 85 Temp 97 ??F(36.1 ??C) (Temporal) Resp 18 Ht 5' 4 (1.626 m) Wt 101.8 kg (224 lb 6.9 oz) SpO2 97% BMI38.52 kg/m?? Last documented weight: Weight: 101.8 kg (224 lb 6.9 oz) (01/09/25 0444) General: Awake, alert, resting comfortably in bed, in no acute distress. Neurologic: Cranial nerves II through XII grossly intact. Moving all extremities equally. HEENT: Normocephalic. No scleral icterus or conjunctival injection. Lungs: Clear to auscultation bilaterally with bibasilar crackles resolved. No rhonchi or wheezes. Breathing unlabored. Wearing baseline 4 L supplemental oxygen. Heart: RRR with normal S1/S2. Abdomen: Soft, nontender, nondistended. Bowel sounds present throughout. Extremities: 2+ radial and DP pulses bilaterally. Significant improvement in edema, now with trace pedal edema bilaterally only. Psychiatric: Appropriate mood and affect for situation. Home Healthcare Is this patient being discharged with Home Health? No Total time spent on discharge services today including examining and educating the patient, writingprescriptions and reviewing the discharge medication list, documenting this discharge summary and coordinating outpatient care and follow up required greater than 30 minutes. documented in this encounter Discharge Instructions * Discharge Instructions* Kapil Deluna DO - 01/09/2025 9:58 AM CDT Yasemin Discharge Instructions Discharge & Transfer patient to: Home Symptoms/Diagnosis: Chest pain Procedures Performed, if any: 01/09 0843 Note By: Yovany Arango, RVT 01/07 0279 Note By: Elisha Jeter RN Labs and studies from this hospitalization needing follow up: You will need repeat CBC, CMP and INR in 3-5 days. Follow up PCP Your physician, Delta Wade MD, has been notified of this hospitalization. Follow-up: You must follow up with Delta Wade MD in 3-5 days Follow up consultants Future Appointments Date Time Provider Department Center 01/12/2025 1:40 PM Tresa Stockton FNP [facility]in 01/26/2025 8:30 AM [facility] 02/01/2025 9:00 AM [facility] 02/14/2025 3:00 PM Angeli Miles MD [facility] If the office does not reach you to make a follow up appointment, please call [phone]. Activity level: up as tolerated DIET: DIET DIABETIC Fluid/day: 1800 ML Fluid,; 2GM Sodium (Low), Wound Care: Not Applicable Other Comments: Thank you for allowing us to care for this admission. You presented to the hospitalfor shortness of breath, mild chest pain and possible episode of passing out. Your symptoms were thought to be secondary to some volume overload and you were started back on IV diuretics with rapid im provement. Although there were initial concerns for COPD exacerbation, this was thought to be less likely, although you still received 1 day of high-dose steroids. Please make sure to adhere to a low-sodium diet at home with no more than 2 g/day of sodium. Please continue taking your Lasix 80 mg twice per day to manage volume. Your episodes of passing out are suspected to be related to hypoxia orlack of being on supplemental oxygen. This seems especially the case since he reported episodes of passing out whenever you are off your oxygen for longe please make sure to take your oxygen with your periods of time. Please make sure to take your supplemental oxygen overall with you and keep it onat all times. Please follow-up with your primary care doctor in 3-5 days. Your INR was subtherapeutic this admission down to 1.4. You received an additional dose of warfarin for this purpose. You must have a repeat INR check in 3 days to follow- up on this. For now continue your warfarin as is. Follow up in the Emergency Room For any recurrence or worsening of admission concerns, chest pain, palpitations, shortness of breath, coughing blood, nausea, vomiting, diarrhea, pain, fever, chills, bleeding, bloody or tarry stools, change to urine or bowel output. Contact hospitalist office [phone] for questions if patients are [facility]. On 4B???..We care about Your care!!! Our team believes we provide EXCELLENT care! We hope you agree! Share your opinion by completing our important survey. In the near future you may receive a survey from [employer]. This survey helps us plan care so that we can better meet the expectations of our patients. Thank you for allowing us to participate in your healthcare and we hope you the best in your recovery. * Attachments The following attachments cannot be sent through Care Everywhere. * COPD: Prevent Lung Infections: General Info (Syrian) * COPD: Triggers: General Info (Syrian) * COPD (Syrian) documented in this encounter Medications at Time of Discharge tiotropium-olodat Lisa (STIOLTO RESPIMAT) 2.5-2.5 mcg/actuation metered inhaler Take 2 Puffs by inhalation daily. 4 Gram 5 02/09/20 25 pantoprazole (PROTONIX) 40 mg Tablet, Delayed Release (E.C.) Take 1 Tablet (40 mg) by mouth daily before breakfast. 30 Tablet 5 ipratropium-albut Lisa (DUONEB) 0.5 mg-3 [...] She does not remember instructions about warfarin levalbuterol (XOPENEX) 1.25 mg/3 mL Solution for [...] 1 Each 4 naloxone (NARCAN) 4 mg/spray [place], Non-Aerosol EMERGENCY USE ONLY: Administer 1 spray [...] as of this encounter Progress Notes * Rich Guzman RN - 01/09/2025 12:45 AM CDT Covering doctor notified of blood sugars over the course of the night, orders received and insulin orders administered, doctor ordered recheck at 0200 and will relay results then. * Kapil Deluna DO - 01/08/2025 5:45 PM CDT Notified by RN of severe hyperglycemia 546 via glucometer. Confirmatory serum testing ordered. Pending this result, ordered regular insulin IV 10 units x 1. Hyperglycemia likely due to steroid effectsince was started on IV steroids on admission. * Saelem Bronson RN - 01/08/2025 3:39 PM CDT The patient frequently called the nurses' station requesting pain medication despite receiving education from the registered nurse regarding PRN dosing and medication use. * Kapil Deluna DO - 01/08/2025 12:08 PM CDT Images from the original note were not included. Your life is our life's work [facility] Hospitalist/Hospital Medicine Progress Note LOS: 0 days Room/Bed: 4163/01 Patient name: Le Diaz Date of : 1965 HOSPITAL COURSE SUMMARY: Le Diaz is a 59 y.o. female with history of essential hypertension, dyslipidemia, CAD s/p stent placement, chronic combined systolic/diastolic CHF with recovered EF, COPD, chronic hypoxic respiratory failure on 3-4 L, GERD, generalized anxiety disorder/bipolar disorder, insulin-dependent type 2 diabetes, history of PE on chronic warfarin, chronic pain syndrome, history of splenectomy, obesity, former tobacco use, who presented to our facility for further evaluation of dyspnea and possible syncope. Patient was very recently discharged from our facility on 01/06/2025 after being admittedfor acute on chronic CHF. On that admission, patient briefly required BiPAP support and was placed on IV diuresis. NMST was also performed revealing a moderate size/intensity, mostly fixed inferior/inferolateral defect with minimal reversibility resembling possible injury/very mild pedro-infarction ischemia in RCA distribution; a similar perfusion defect was noted on cardiac PET/CT September 2024. On current presentation, patient presented to our facility in the evening after developing rapidly worsening dyspnea, wheezing, and chest tightness. Reported sitting at the edge of her bed when symptoms suddenly worsened, and believes that she might have passed out. Immediately prior to this possible s yncopal event reported a pressure in the back of her head. She reported possible mild central chestpain without radiation. Denied associated diaphoresis, nausea, vomiting, jaw/shoulder/arm pain or paresthesias. Reported increasing bilateral lower extremity edema since returning home from recent hospitalization. Reported compliance with all of her home medications including inhalers and diuretics. On arrival to our facility found to be hemodynamically stable, afebrile, tachycardic HR 111, saturating low to mid 90s on baseline 4 L. Labs revealed normal WBC 6.5, hemoglobin 10.4, platelets 176, sodium 141, K3.5, creatinine 0.58, AST 17, ALT 21, proBNP 110, subtherapeutic INR 1.4. Troponins elevated but flat 23, 24 and similar from prior. CTA chest without evidence of PE; no evidence of cardiopulmonary disease; stable chronic LLL basilar consolidation. EKG with sinus tachycardia and no acuteischemic changes appreciated; EKG similar to prior recent EKGs. Due to possible COPD exacerbation, patient was given IV Solu-Medrol 125 mg x 1 and DuoNeb in the ED. Due to subtherapeutic INR was given dose of warfarin 20 mg p.o. x 1. Subsequently admitted to the hospitalist service for further management. Consultants: IP CONSULT TO IV TEAM IP CONSULT TO CARDIOLOGY SUBJECTIVE: Rounded with RN. Patient reports feeling a little bit better today. Complaining of pain/tightness in both her legs from toes up to her abdomen. Currently denies any chest pain or palpitations. Reports breathing is better, denies any wheezing at present. Patient is requesting IV pain medication for her leg pain. OBJECTIVE: Temp (24hrs), Av.6 ??F (36.4 ??C), Min:96.9 ??F (36.1 ??C), Max:98.4 ??F (36.9 ??C) BP 120/83 (BP Location: Left arm, Patient Position (BP): Supine) Pulse 100 Temp 97.9 ??F (36.6 ??C) (Oral) Resp 18 Ht 5' 4 (1.626 m) Wt 103.7 kg (228 lb 9.9 oz) SpO2 97% BMI 39.24 kg/m?? No intake or output data in the 24 hours ending 01/08/25 1727 Last documented weight: Weight: 103.7 kg (228 lb 9.9 oz) (01/08/25 0609) EXAM: General: Awake, alert, resting comfortably in bed, in no acute distress. Neurologic: Cranial nerves II through XII grossly intact. Moving all extremities equally. HEENT: Normocephalic. No scleral icterus or conjunctival injection. Normal nose. Lungs: Mild crackles in bilateral lower lobes, otherwise clear to auscultation bilaterally. No rhonchi or wheezes. Breathing mildly labored. Patient was found with her nasal cannula off, placed back on baseline 4 L. Heart: RRR with normal S1/S2. Abdomen: Soft, nontender, nondistended. Bowel sounds present throughout. No masses. Extremities: 2+ radial and DP pulses bilaterally. 1+ pitting pedal edema bilaterally, decreasing totrace mid shins and proximal. LABORATORY: Recent Labs 01/06/25 0154 01/07/250 WBC 7.0 6.5 HGB 10.7* 10.4* HCT 34.8* 34.2* PLT 172 176 Recent Labs 01/06/25 0154 01/07/25 2340 NA 140 141 K 3.0* 3.5 CL 101 100 CO2 27 29 CA 8.9 9.5 BUN 22* 18 CREAT 0.58 0.58 GLUCOSE 348* 346* Recent Labs 01/07/25 2340 TOTALPROTEIN 6.3* ALBUMIN 3.5 BILITOTAL <0.2 ALKPHOS 144* AST 17 ALT 21 Recent Labs 01/06/25 0154 01/08/25 0017 INR 1.7* 1.4* PT 20.4* 17.5* Recent Labs 01/05/25 1812 01/07/25 2340 01/08/25 0148 BASETROP -- 23* -- 2HRTROP -- -- 24* DELTA 3 -- 1 6HRTROP 23* -- -- Medications were reviewed by me. Current Facility-Administered Medications: [COMPLETED] HYDROmorphone (PF) (DILAUDID) injection 0.3 mg, 0.3 mg, IV, ONE time only, Tresa Mueller MD, 0.3 mg at 01/08/25 014 [COMPLETED] iopamidoL (ISOVUE-300) 61% injection (drawn from multi-use bulk pack) 65 mL, 65 mL, IV,intra-proc ONE time, Tresa Mueller MD, 65 mL at 01/08/25 0128 [COMPLETED] sodium chloride flush injection 10 mL, 10 mL, IV, ONE time only, Tresa Mueller MD, 10 mL at 01/08/25 0128 [COMPLETED] methylPREDNISolone sodium succinate (SOLU-Medrol) 125 mg in sterile water 2 mL injection, 125 mg, IV, ONE time only, Tresa Mueller MD, 125 mg at 01/08/25 0415 aspirin (CARTER CHEWABLE) chewable tablet 81 mg, 81 mg, Oral, daily, Stefanie Ferrara MD, 81 mg at 01/08/25 0945 [START ON 01/09/2025] warfarin (COUMADIN) tablet 10 mg, 10 mg, Oral, daily LATE, Stefanie Ferrara MD atorvastatin (LIPITOR) tablet 40 mg, 40 mg, Oral, daily BEDTIME, Stefanie Ferrara MD isosorbide mononitrate (IMDUR) SR 24 hour tablet 30 mg, 30 mg, Oral, daily, Stefanie Ferrara MD, 30 mgat 01/08/25 0944 metoprolol succinate (TOPROL XL) SR 24 hour tablet 25 mg, 25 mg, Oral, daily, Stefanie Ferrara MD, 25 mg at 01/08/25 0945 nitroglycerin (NITROSTAT) tablet 0.4 mg, 0.4 mg, Sublingual, every 5 minutes PRN, Stefanie Ferrara MD sacubitriL-valsartan (ENTRESTO) 24-26 mg tablet 1 Tablet, 1 Tablet, Oral, BID, Stefanie Ferrara MD, 1 Tablet at 01/08/25 0944 insulin glargine (LANTUS) injection 45 Units, 45 Units, subCUT, BID, Stefanie Ferrara MD, 45 Units at 01/08/25 0947 rqpolrtcjo-azzloktkjwjzny-hlcmcttjvy (BREZTRI) 160-9-4.8 mcg/actuation inhaler 2 Puff, 2 Puff, Inhalation, BID, Stefanie Ferrara MD tiotropium-olodateroL (STIOLTO RESPIMAT) 2.5-2.5 mcg/actuation inhaler 2 Puff, 2 Puff, Inhalation, resp, daily, Stefanie Ferrara MD pantoprazole (PROTONIX) tablet 40 mg, 40 mg, Oral, daily BEFORE breakfast, Stefanie Ferrara MD, 40 mg at 01/08/25 0720 amitriptyline (ELAVIL) tablet 25 mg, 25 mg, Oral, daily, Stefanie Ferrara MD, 25 mg at 01/08/25 0946 OLANZapine (ZyPREXA) tablet 10 mg, 10 mg, Oral, daily BEDTIME, Stefanie Ferrara MD sertraline (ZOLOFT) tablet 50 mg, 50 mg, Oral, daily, Stefanie Ferrara MD, 50 mg at 01/08/25 0944 acetaminophen (TYLENOL) tablet 650 mg, 650 mg, Oral, every 6 hours PRN, Stefanie Ferrara MD rOPINIRole (REQUIP) tablet 0.5 mg, 0.5 mg, Oral, daily BEDTIME, Stefanie Ferrara MD dextrose 5 % - [...] (HumaLOG,ADMELOG) injection 0-6 Units, 0-6 Units, subCUT, every 4 hours, Stefanie Ferrara MD, 6 Units at 01/08/25 1659 guaiFENesin (ROBITUSSIN) 100 mg/5 mL oral solution 200 mg, 200 mg, Oral, every 4 hours PRN, Stefanie Ferrara MD sodium chloride flush injection 10 mL, 10 mL, IV, every 12 hours (2 times daily), Stefanie Ferrara MD,10 mL at 01/08/25 0946 sodium chloride flush injection 10 mL, 10 mL, IV, see admin instructions, Stefanie Ferrara MD sodium chloride 0.9 % flush bag 25 mL, 25 mL, IV, see admin instructions, Stefanie Ferrara MD dextrose 5 % in water 250 mL flush bag 25 mL, 25 mL, IV, see admin instructions, Stefanie Ferrara MD naloxone (NARCAN) 0.4 mg/mL injection 0.1-0.4 mg, 0.1-0.4 mg, IV, see admin instructions, Stefanie Ferrara MD [COMPLETED] methylPREDNISolone sodium succinate (SOLU-Medrol) 40 mg in sterile water 1 mL injection, 40 mg, IV, every 8 hours, Stefanie Ferrara MD, 40 mg at 01/08/25 1815 [COMPLETED] warfarin (COUMADIN) tablet 20 mg, 20 mg, Oral, ONE time only, Stefanie Ferrara MD, 20 mg at 01/08/25 1602 insulin lispro (HumaLOG,ADMELOG) injection 14 Units, 14 Units, subCUT, TID WITH meals, Kapil Deluna DO, 14 Units at 01/08/25 1659 [COMPLETED] morphine 4 mg/mL injection 2 mg, 2 mg, IV, ONE time only, Kapil Deluna DO, 2mg at 01/08/25 1404 [COMPLETED] furosemide (LASIX) injection 40 mg, 40 mg, IV, ONE time only, Kapil Deluna DO, 40 mg at 01/08/25 1404 ipratropium-albuteroL (DUONEB) 0.5 mg-3 mg(2.5 mg base)/3 mL inhalation solution 3 mL, 3 mL, Inhalation, resp, every 6 hours PRN AND albuterol (PROVENTIL,VENTOLIN) 2.5 mg /3 mL (0.083 %) inhalation solution 2.5 mg, 2.5 mg, Inhalation, resp, every 6 hours PRN, Kapil Deluna DO HYDROcodone-acetaminophen (NORCO) 7.5-325 mg per tablet 1 Tablet, 1 Tablet, Oral, every 6 hours PRN, Kapil Deluna DO furosemide (LASIX) injection 40 mg, 40 mg, IV, ONE time only, Kapil Deluna DO [START ON 01/09/2025] furosemide (LASIX) injection 60 mg, 60 mg, IV, BID, 7 hours apart, Kapil Deluna DO insulin regular (HumuLIN R,NovoLIN R) injection 10 Units, 10 Units, IV, ONE time only, Kapil Deluna, [DISCONTINUED] HYDROcodone-acetaminophen (NORCO) 7.5-325 mg per tablet 1 Tablet, 1 Tablet, Oral, every 8 hours PRN, Stefanie Ferrara MD, 1 Tablet at 01/08/25 1602 [DISCONTINUED] furosemide (LASIX) tablet 80 mg, 80 mg, Oral, BID, Stefanie Ferrara MD, 80 mg at 01/08/25 0944 ipratropium-albuteroL (DUONEB) 0.5 mg-3 mg(2.5 mg base)/3 mL inhalation solution 3 mL, 3 mL, Inhalation, resp, every 6 hours PRN AND albuterol (PROVENTIL,VENTOLIN) 2.5 mg /3 mL (0.083 %) inhalation solution 2.5 mg, 2.5 mg, Inhalation, resp, every 6 hours PRN, Kapil Deluna, DO ipratropium-albuteroL (DUONEB) 0.5 mg-3 mg(2.5 mg base)/3 mL inhalation solution 3 mL, 3 mL, Inhalation, resp, every 6 hours PRN AND albuterol (PROVENTIL,VENTOLIN) 2.5 mg /3 mL (0.083 %) inhalation solution 2.5 mg, 2.5 mg, Inhalation, resp, every 6 hours PRN, Kapil Deluna, DO [COMPLETED] ipratropium-albuteroL (DUONEB) 0.5 mg-3 mg(2.5 mg base)/3 mL inhalation solution 3 mL, 3 mL, Inhalation, resp, one time only, Pablo Morales, HYDRODYNAMICIST, 3 mL at 01/07/25 2210 [COMPLETED] HYDROcodone-acetaminophen (NORCO) 7.5-325 mg per tablet 1 Tablet, 1 Tablet, Oral, ONE time only, Tresa Mueller MD, 1 Tablet at 01/08/25 0018 Primary discharge diagnosis: Chest pain Other active medical issues also addressed during this admission: Active Hospital Problems Diagnosis Syncope and collapse Obesity (BMI 30-39.9) Acute exacerbation of chronic obstructive pulmonary disease ([facility]/HCC) Type 2 diabetes mellitus with hyperglycemia, with long-term current use of insulin Chest pain Dyspnea Chronic anticoagulation CAD (coronary atherosclerotic disease) Benign hypertension Chronic respiratory failure with hypoxia, on home O2 therapy ([facility]) Neuropathy History of pulmonary embolism Chronic pain syndrome GERD (gastroesophageal reflux disease) Mixed hyperlipidemia Bipolar affective disorder ([facility]) Resolved Hospital Problems No resolved problems to display. ASSESSMENT AND PLAN: Chest pain & Dyspnea, possible acute on chronic combined systolic/diastolic CHF Hemodynamically stable, afebrile, saturating well on baseline 3-4 L. Very recently discharged from our facility 01/06/2025 after being admitted for CHF exacerbation. Presented back for reported sudden onset dyspnea, mild chest pain without radiation, wheezing. Patient tells me he was sitting at edge of bed when had sudden onset of above symptoms, and also reported possible syncope when she developed a pressure in the back of her head. Appears to be poor historian. Patient with different recollection of the events today, as per ED report she had already been laying down in bed with dyspnea, more consistent with orthopnea. Reported to ED that she did not have chest pain at that time, however tells me that she did have mild chest pain/pressure along with dyspnea. CTA chest negative for PE; no acute cardiopulmonary disease; has a stable LLL basilar consolidation. Afebrile without leukocytosis, low concern for infection. proBNP 110 but may be blunted by obesity. Hold home p.o. Lasix. Already received p.o. dose of 80 mg this morning. Lasix 40 mg IV twice daily today then increase to 60 mg IV twice daily starting tomorrow. Strict I's/O's, daily weights. Continue Entresto, Toprol XL. Resume home Jardiance in the morning. Elevated troponin CAD Troponins elevated 23, 24, similar from prior. EKG on arrival with sinus tachycardia, no acute ischemic changes appreciated, and appears similar to prior EKGs. [facility] 02/2024 with widely patent stents LAD, RCA; no new high-grade stenoses or restenosis. Recent NMST 01/06/2025 with moderate sized/intensity, fixed inferior/inferolateral defect with minimal reversibility, consistent with possible injury and/or very mild pedro-infarct ischemia of RCA distribution; similar perfusion defect already noted on cardiac PET/CT from September 2024. At this time, low suspicion for ACS. As noted above, NMST findings similar to cardiac PET/CT from September 2024. Troponin trend is reassuring and patient without any further complaints of chest pain. Will hold on cardiology consultation at this time, discussed with Dr. Zimmerman. Continue aspirin and high intensity statin. Continue Imdur. 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 Per chart review, no wheezing noted on ED assessment or admission assessment. There were still apparent concerns for COPD exacerbation as patient was started on steroids. Continue Solu-Medrol as ordered for now. Both Breztri and Stiolto on home medication list, unclear which patient is actually taking. DuoNebs available every 6 hours as needed. Patient is known to me from prior hospitalization. She has previously had difficulties with adherence to medication regimen for cost reasons. At this time reports that she has been compliant with inhalers. Insulin-dependent type 2 diabetes A1c 10.4% from October 2024. Continue home Lantus 45 units twice daily. Continue home Humalog 14 units 3 times daily. Increase SSI to medium dose ACHS. History of PE, on chronic anticoagulation INR subtherapeutic 1.4 on arrival. Received warfarin 20 mg p.o. x 1 in the ED. Continue home warfarin 10 mg nightly. Chronic pain syndrome Continue [place] 7.5 mg / 325 mg, increasing to every 6 hours as needed for now due to increased lower extremity pain which may be secondary to edema. GERD: Continue pantoprazole. Major depression/generalized anxiety disorder: Continue sertraline and olanzapine. Restless leg syndrome: Continue home ropinirole. DVT prophylaxis: DVT Pharmacologic Prophylaxis: warfarin (COUMADIN) tablet 10 mg [[id number]] DIET DIABETIC Fluid/day: 1800 ML Fluid,; 2GM Sodium (Low), Code status: Full Code Outpatient follow up: PCP, cardiology. Anticipated Disposition Location: Home Timeframe: 01/09/2025 Criteria: Clinical improvement, work-up completed. Patient's understanding of illness: Fair. Primary family contact: None at bedside. MDM complexity: [] Mild [x] Moderate [] High Kapil Deluna DO 01/08/2025, 5:28 PM * Florence Blackburn, PHARMACIST - 01/08/2025 5:14 AM CDT RX ANTICOAG MONITORING ORDERS Pharmacy to order, review, and report clinically significant changes in lab per [facility] Anticoagulation Protocol as follows: Orders for dosing changes and follow-up labs will be signed ???Per Protocol?? in Epic. The name ofthe provider signed on the follow-up orders for cosignature will be assigned as follows: Orders placed by members of the Human Performance Professor or Hospitalist physician groups: If the original [...] order appropriate labs as indicated by the [facility] Anticoagulation Monitoring policy located on [facility] intranet, unless already ordered. The medications that [...] Safety Goal 3E and authorized by the [facility] Pharmacy and Therapeutics Committee. 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 female who is being admitted for further evaluation of shortness of breath and chest pain. She has a past medical history of hypoxic respiratory failure, combined CHF, COPD, chronic pain syndrome, mood disorder, hypertension, hyperlipidemia, CAD, GERD, IDDM, PE on anticoagulation, obesity. Patient presented to ED complaining of sudden onset of shortness of breath while lying down which persisted for 15 to 20 minutes and was severe enough to prevent her from getting out of bed. Patient is also reporting having chest pain and recurrent episodes of syncope. Patient's family member reports that last time she had a similar presentation of syncope and had required stent placement. In the ED, patient is afebrile, tachycardic, tachypneic, alert oriented x 3, saturating well on 4 Lnasal cannula. Significant labs are normocytic anemia with hemoglobin 10.4, CMP with normal electrolytes and renal function, glucose 346, normal LFTs except elevated ALP of 144, normal BNP, troponinsare 23 and 24, subtherapeutic INR of 1.4, CTA chest without PE. She is being admitted to medicine hospitalist service for further management. Past medical history: Past Medical History: Diagnosis [...] smear Hyperlipidemia Ischemic cardiomyopathy Lower extremity edema CA (myocardial infarction) 2016 Neuropathy NSTEMI (non-ST elevated myocardial infarction) 06/06/2023 No stents placed at this time NSTEMI (non-ST elevated myocardial infarction) Paroxysmal A-fib Paroxysmal atrial tachycardia Pneumonia due to COVID-19 virus Polycythemia Primary hereditary hemochromatosis 12/13/2010 Unspecified essential hypertension Vaginal cancer ([facility]) 2019 s/p radiation (end 11/2019) and Cisplatin (chemo) (end 08/2019) tumor non- resectable . 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4 Benign hypertension I10 CAD (coronary atherosclerotic disease) I25.10 Morbid obesity due to excess calories ([facility]) E66.01 Chronic anticoagulation Z79.01 Fall W19.XXXA L1 vertebral fracture ([facility]) S32.019A Closed compression fracture of body of L1 vertebra ([facility]) S32.010A Dyspnea R06.00 Back pain M54.9 At risk for obstructive sleep apnea Z91.89 Chest pain R07.9 Acute respiratory failure with hypercapnia J96.02 Centrilobular emphysema J43.2 COPD with exacerbation ([facility]) J44.1 Essential hypertension I[address] R93.89 Diabetes mellitus with hyperglycemia E11.65 Hepatic steatosis K76.0 COPD exacerbation ([facility]) J44.1 Consolidation of left lower lobe of lung J18.1 Acute respiratory failure with hypoxia and hypercapnia J96.01, J96.02 Infiltrate of lung present on chest x-ray R91.8 Acute exacerbation of chronic obstructive pulmonary disease ([facility]) J44.1 Left arm swelling M79.89 Type 2 diabetes mellitus with hyperglycemia, with long-term current use of insulin E11.65, Z79.4 Demand ischemia of myocardium I24.89 Increased abdominal girth R19.8 Abdominal pain, acute, right upper quadrant R10.11 Obesity (BMI 30-39.9) E66.9 Syncope and collapse R55 Past surgical history: Past Surgical History: Procedure Laterality Date ENDOSCOPY, COLON, DIAGNOSTIC HX APPENDECTOMY HX BLADDER SUSPENSION Bladder Suspension HX ESOPHAGOGASTRODUODENOSCOPY N/A 03/19/2024 ESOPHAGOGASTRODUODENOSCOPY performed by Mikey Moon MD at [facility] MAIN OR HX MASTECTOMY Right no lymph node removal HX PTCA stents (x3 in 2016, x2 in 2019) HX SPINAL SURGERY 2004 C4-5 fusion at [place], [place] HX SPLENECTOMY HX SURGICAL OTHER 1984 vaginal reconstruction HX TONSILLECTOMY HX 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 INSERT MIDLINE IV 10/31/2024 INSERT MIDLINE IV 12/10/2024 INSERT MIDLINE IV 01/04/2025 DE CATH PLMT L HRT & ARTS W/NJX & ANGIO IMG S&I N/A 03/21/2024 Left heart cath performed by Kyler Helm MD at [facility] INVASIVE CARDIOLOGY DE CATH PLMT L HRT & ARTS W/NJX & ANGIO IMG S&I N/A 03/21/2024 Left Ventriculogram performed by Kyler Helm MD at [facility] INVASIVE CARDIOLOGY DE COLONOSCOPY FLX DX W/COLLJ SPEC WHEN PFRMD 01/23/2011 COLONOSCOPY performed by MACK BISWAS at [facility] ENDOSCOPY DE COLONOSCOPY FLX DX W/COLLJ SPEC WHEN PFRMD 09/19/2010 COLONOSCOPY performed by MACK BISWSA at [facility] ENDOSCOPY DE CORRECTION HAM[place] Left 07/20/2024 TOE(S) ARTHROPLASTY performed by Tereso Gil DPM at [facility] MAIN OR DE EXPL PENETRATING WOUND SPX ABDOMEN/FLANK/BACK N/A 05/30/2023 LAPAROTOMY EXPLORATORY performed by Jose Cruz Montero DO at [facility] OR DE INJ SUBSTITUTE PARS PLANA/LIMBL W/WO ASPIR SPX Right 03/30/2024 EYE AIR FLUID GAS EXCHANGE performed by Eduardo Craven MD at [facility] SURGERY [employer] DE RPR RPTD SPLEEN SPLENORRHAPHY W/WO PRTL SPLENECT N/A 05/30/2023 SPLENECTOMY performed by Jose Cruz Montero DO at [facility] OR DE VITRECTOMY [facility] PARS PLNA FOCAL ENDOLASER PC Right 03/30/2024 PARS PLANA VITRECTOMY WITH LASER performed by Eduardo Craven MD at [facility] SURGERY [employer] Current medications: Prior to Admission Medications [...] 2 times daily. naloxone (NARCAN) 4 mg/spray [place], Non-Aerosol No No Sig: EMERGENCY USE ONLY: Administer 1 spray (4 mg) in one nostril one time. May repeat in alternating nostrils every 2-3 min until responsive or EMS arrives. nitroglycerin (NITROSTAT) 0.4 mg Tablet, Sublingual Yes No Sig: Place 0.4 mg under tongue. oxygen home delivery No No Sig: Home Oxygen Concentrator yes at 0 L/M Rest, 2 L/M Activity, 0 L/M Sleep, Delivery Device: Nasal Cannula Portability: yes, 0 L/M Rest, 2 L/M Activity, May provide device best for patient needs(E system,home fill, conserving device) Length of Need: 99 months pantoprazole (PROTONIX) 40 mg Tablet, Delayed Release (E.C.) No No Sig: Take 1 Tablet (40 mg) by mouth daily before breakfast. portable oxygen No No Sig: Face to [...] female friend. Health-Related Social Needs Food Insecurity: Patient Declined (01/07/2025) Food Insecurity Eating less because can't pay for food: Prefer not to answer Transportation Needs: Patient Declined (01/07/2025) Transportation Needs Worry about transportation for doctor visits / garbage pick up man meds: Prefer not to answer Domestic Concerns: Not At Risk (01/07/2025) Feeling Safe Patient has indicated abuse: : No Housing Stability: Patient Declined (01/07/2025) Housing Stability Struggle to pay rent or mortgage: Prefer not to answer Family History: Family History Problem Relation Name Age of Onset Stomach Cancer Paternal Aunt Colon Cancer Paternal Grandmother Lung Cancer Paternal Grandmother Breast Cancer Maternal Aunt 60 Breast Cancer Maternal Aunt 70 Heart Disease Father Hypertension Father Breast Cancer Mother 58 Hypertension Mother Ovarian Cancer Neg Hx ROS: As per HPI OBJECTIVE: Temp (24hrs), Av.4 ??F (36.9 ??C), Min:98.4 ??F (36.9 ??C), Max:98.4 ??F (36.9 ??C) BP 127/53 Pulse 93 Temp 98.4 ??F (36.9 ??C) (Oral) Resp 24 Ht 5' 4 (1.626 m) Wt 99.9 kg (220 lb 3.8 oz) SpO2 96% BMI 37.80 kg/m?? No intake or output data in the 24 hours ending 01/08/25514 Last documented weight: Weight: 99.9 kg (220 lb 3.8 oz) (01/07/252150) EXAM: General: Lying in bed, not in distress Mental exam: Alert oriented x 3 Neurologic: Grossly normal HEENT: Normocephalic, atraumatic Lungs: Normal respiratory effort Heart: Tachycardia present Abdomen: Nondistended Extremities: Edema present Lab Data: Recent Labs 01/06/25 01501/07/25 2340 WBC 7.0 6.5 HGB 10.7* 10.4* HCT 34.8* 34.2* PLT 172 176 Recent Labs 01/06/25 01501/07/25 2340 NA 140 141 K 3.0* 3.5 CL 101 100 CO2 27 29 CA 8.9 9.5 BUN 22* 18 CREAT 0.58 0.58 GLUCOSE 348* 346* Recent Labs 01/07/25 2340 TOTALPROTEIN 6.3* ALBUMIN 3.5 BILITOTAL <0.2 ALKPHOS 144* AST 17 ALT 21 Recent Labs 01/06/2515301/08/25 0017 INR 1.7* 1.4* PT 20.4* 17.5* No results for input(s): CPK , CKMB , TROPONIN in the last 72 hours. Primary diagnosis: Chest pain Other active medical issues Active Hospital Problems Diagnosis Syncope and collapse Obesity (BMI 30-39.9) Acute exacerbation of chronic obstructive pulmonary disease ([facility]) Type 2 diabetes mellitus with hyperglycemia, with long-term current use of insulin Chest pain Chronic anticoagulation CAD (coronary atherosclerotic disease) Benign hypertension Chronic respiratory failure with hypoxia, on home O2 therapy ([facility]) Neuropathy History of pulmonary embolism Chronic pain syndrome GERD (gastroesophageal reflux disease) Mixed hyperlipidemia Bipolar affective disorder ([facility]) Resolved Hospital Problems No resolved problems to display. ASSESSMENT AND PLAN: Chest pain Recurrent syncope CAD Hyperlipidemia Troponins are 23 and 24 Stress test from 2 days ago showing moderate size and intensity mostly fixed inferior and inferior lateral defect with minimally reversibility consistent with injury and very mild pedro-infarction ischemia in RCA distribution, EF is 46 CT chest without PE Telemetry monitoring Cardiology consulted Continue aspirin, Lipitor, Toprol-XL and [place] COPD exacerbation Chronic hypoxic respiratory failure Continue tapering Solu-Medrol and home inhalers As needed albuterol RT assess and treat Combined CHF Stable Continue Lasix, Entresto and Toprol-XL GERD Continue Protonix Chronic pain syndrome Continue home meds Mood disorder Continue Zyprexa and as needed Ativan IDDM Continue Lantus and sliding scale coverage PE on anticoagulation INR is 1.4 Additional dose of warfarin was ordered, follow INR Severe obesity BMI 37.8 DVT Pharmacologic Prophylaxis: warfarin (COUMADIN) tablet 10 mg [[id number]] Current diet : DIET DIABETIC Code Status: Full Code Admission status -observation on telemetry On the day of the visit, I spent 78 minutes providing care to this patient including Preparing to see the patient, Obtaining and/or reviewing separately obtained history, Performing a medically appropriate examination and/or evaluation, Counseling and educating the patient/family/caregiver, Ordering medications, tests or procedures, Documenting clinical information in the medical record, Referring and communication with other health child care director (not separately reported), Independently interpreting results and communicating results to the patient/family/caregiver (not separately reported), Care coordination (not separately reported), and Excluding time spent performing separately billed procedures and/or services. Stefanie Ferrara MD 01/08/2025 5:15 AM documented in this encounter Procedure Notes * Yovany Arango, RVT - 01/09/2025 8:43 AM CDT CARD[facility] NONINVASIVE VASCULAR [place]- EXT [address] TECHNOLOGIST PRELIMINARY WORKSHEET PHYSICIAN INTERPRETATION TO FOLLOW Patient Name: Le Diaz #: [id number] Date:01/09/2025 [facility] Initials: MJM Exam End Time: 0745 Critical Result Notification [] [] RN (name) Notification Time: Noninvasive lower extremity venous study performed on: [x] Right [x] Left A. [x] There are no echo images consistent with acute venous obstruction throughout the venous system scanned. B. [] Imaging is consistent with an obstruction in the [] Superficial venous [] Deep venous system [] Right [] Left [] Groin [] Groin [] Proximal Thigh [] Proximal Thigh [] Distal Thigh [] Distal Thigh [] Popliteal [] Popliteal [] Calf [] Calf [] Softer echoes are considered consistent with acute venous obstruction [] Brighter echoes are considered consistent with chronic venous obstruction [] Soft echoes not well adhered to vein wall are considered consistent with freefloating obstruction [] Venous reflux is considered to be consistent with venous insufficiency Technologist Comments: * Elisha Jeter RN - 01/07/2025 11:39 PM CDT VASCULAR ACCESS TEAM Peripheral IV insertion with lab collection PATIENT NAME: Le Diaz DATE OF : 1965 CSN: [id number] DATE: 01/07/2025 Room: 12/30 Admit Date: 01/07/2025 Hospital day: LOS: 0 days [place]: Allergies [...] ultrasound guided needle stick. A 20 Gauge 1.25 Inch peripheral IV was successfully placed using ultrasound guidance in the right, lower proximal Arm Secure port adhesive used Yes 1 attempts 30 minutes required to complete procedure Labs collected Yes Blood Cultures collected No Positive blood return noted Neutral pressure cap applied Catheter Flushed with 5ml of Normal Saline Transparent dressing applied with date, time and initials of cowoker inserting. LDA documentation is contained in EMR flowsheet Patient tolerated well. Elisha Jeter RN documented in this encounter Consult Notes * Belkis Mosqueda RCP - 01/09/2025 7:55 AM CDT Pulmonary Rehab Note: COPD Education At this time, COPD Healthwise information was downloaded to S and will be printed and provided bynursing staff at discharge. No referral will be sent to outpatient Pulmonary Rehab due to: no PFTs available in EHR. * Elisha Jeter RN - 01/07/2025 11:09 PM CDTAssociated Order(s): IP CONSULT TO IV TEAM VASCULAR ACCESS CONSULT PATIENT NAME: Le Diaz DATE OF : 1965 CSN: [id number] DATE: 01/07/2025 Room: 12/30 Admit Date: 01/07/2025 Hospital day: LOS: 0 days INDICATION: IV access EXCLUSIONS/CONSIDERATIONS: R mastectomy, per history no lymph nodes removed LAST RECORDED TEMP: Temp: 98.4 ??F (36.9 ??C) (01/07/252150)] Assessment Allergies Allergen Reactions Ketorolac Tromethamine Hives [...] smear Hyperlipidemia Ischemic cardiomyopathy Lower extremity edema CA (myocardial infarction) 2016 Neuropathy NSTEMI (non-ST elevated [...] performed by Mikey Moon MD at [facility] MAIN OR HX MASTECTOMY Right no lymph node removal HX PTCA stents (x3 in 2016, x2 in 2018) HX SPINAL SURGERY 2005 C4-5 fusion at [place], [place] HX SPLENECTOMY HX SURGICAL OTHER 1984 vaginal reconstruction HX TONSILLECTOMY HX 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 INSERT MIDLINE IV 10/31/2024 INSERT MIDLINE IV 12/10/2024 INSERT MIDLINE IV 01/04/2025 DE CATH PLMT L HRT & ARTS W/NJX & ANGIO IMG S&I N/A 03/21/2024 Left heart cath performed by Kyler Helm MD at [facility] INVASIVE CARDIOLOGY DE CATH PLMT L HRT & ARTS W/NJX & ANGIO IMG S&I N/A 03/21/2024 Left Ventriculogram performed by Kyler Helm MD at [facility] INVASIVE CARDIOLOGY DE COLONOSCOPY FLX DX W/COLLJ SPEC WHEN PFRMD 01/23/2011 COLONOSCOPY performed by MACK BISWAS at [facility] ENDOSCOPY DE COLONOSCOPY FLX DX W/COLLJ SPEC WHEN PFRMD 09/19/2010 COLONOSCOPY performed by MACK BISWAS at [facility] ENDOSCOPY DE CORRECTION [place] Left 07/20/2024 TOE(S) ARTHROPLASTY performed by Tereso Gil, DPM at [facility] MAIN OR DE EXPL PENETRATING WOUND SPX ABDOMEN/FLANK/BACK N/A 05/30/2023 LAPAROTOMY EXPLORATORY performed by Jose Cruz Montero DO at [facility] MAIN OR DE INJ SUBSTITUTE PARS PLANA/LIMBL W/WO ASPIR SPX Right 03/30/2024 EYE AIR FLUID GAS EXCHANGE performed by Eduardo Craven MD at [facility] SURGERY [employer] DE RPR RPTD SPLEEN SPLENORRHAPHY W/WO PRTL SPLENECT N/A 05/30/2023 SPLENECTOMY performed by Jose Cruz Montero DO at [facility] OR DE VITRECTOMY [facility] PARS PLNA FOCAL ENDOLASER PC Right 03/30/2024 PARS PLANA VITRECTOMY WITH LASER performed by Eduardo Craven MD at [facility] SURGERY [facility] Current Facility-Administered Medications: [COMPLETED] ipratropium-albuteroL (DUONEB) 0.5 mg-3 mg(2.5 mg base)/3 mL inhalation solution 3 mL, 3 mL, Inhalation, resp, one time only, Pablo Morales, HYDRODYNAMICIST, 3 mL at 01/07/25 2210 povidone-iodine (BETADINE) 5 % ophthalmic solution 1 Drop, 1 Drop, Right Eye, intra-proc ONE time, Kumar Ochoa MD vancomycin in NS (PF) 1 mg/0.1 mL ophthalmic solution compound 0.3 mL, 0.3 mL, Right Eye, intra-proc ONE time, Kumar Ochoa MD Current Outpatient Medications: pantoprazole (PROTONIX) 40 mg Tablet, Delayed Release (E.C.), Take 1 Tablet (40 mg) by mouth daily before breakfast., Disp: 30 Tablet, Rfl: 0 oxygen home delivery, Home Oxygen Concentrator yes at 0 L/M Rest, 2 L/M Activity, 0 L/M Sleep, Delivery Device: Nasal Cannula Portability: yes, 0 L/M Rest, 2 L/M Activity, May provide device best forpatient needs(E system,home fill, conserving device) Length of Need: 99 months, Disp: 1 Each, Rfl: 0 tiotropium-olodateroL (STIOLTO RESPIMAT) 2.5-2.5 mcg/actuation metered inhaler, [...] of Breath., Disp: 8.5 Gram, Rfl: 5 warfarin (COUMADIN) 10 mg tablet, Take 10 [...] mg by mouth daily., Disp: , Rfl: zinc OXIDE-cod liver oil (DESITIN) 40 % [...] times daily with meals., Disp: , Rfl: Ventolin HFA 90 mcg/actuation [...] Each, Rfl: 0 naloxone (NARCAN) 4 mg/spray [place], Non-Aerosol, EMERGENCY USE ONLY: Administer 1 spray [...] 1 Each, Rfl: 0 PLAN Plan to assess for vascular access Elisha Jeter RN documented in this encounter ED Notes * Luna Fontanez RN - 01/08/2025 5:37 AM CDT Report called and given to nurse Villanueva on 4B at this time, * Giovani Multani RN - 01/08/2025 1:36 AM CDT Report given to MARICARMEN Carrasco, who assumes care at this time. * Giovani Multani RN - 01/08/2025 12:20 AM CDT RN to bedside for medication administration, see MAR, and lab draw from RAC IV. Denies further needs. * Giovani Multani RN - 01/07/2025 11:11 PM CDT Patient brought back from triage. Patient was asleep and was woken up by sudden chest pain and shortness of breath. Patient denies chest pain at this time and says she had a breathing treatment before she got to the room. Patient discharged from hospital yesterday and did have a stress test while admitted. * Miguel Zuleta - 01/07/2025 10:21 PM CDT Pt took off oxygen and refused to wear it while in the bathroom. * Umu Burch - 01/07/2025 9:59 PM CDT Triage Protocol EKG [facility] EKG obtained in triage and reviewed by: Dr. Márquez at Time: 2157 Patient will: Remain in the waiting room under the triage protocol and will be roomed per usual triage process. Primary triage nurse Radha HERNADEZ notified. * Pablo Morales FNP - 01/07/2025 9:52 PM CDT Pt was evaluated in triage at 9:52 PM with complaint of chest pain shortness of breath.. Pt is a 59 y.o. female who presented today with a complaint of chest tightness shortness of breath.This started approximately 2 to 3 hours ago. Last albuterol treatment approximately 2 hours ago. Patient is on 4 L by nasal cannula. Oxygen saturation 94%. Significant medical history includes COPD, diabetes, on home O2, CAD, hypertension, hyperlipidemia,GERD, generalized anxiety, IV, labs, chest x-ray, EKG, respiratory treatment were ordered at this time. Vitals: Vitals: 01/07/252150 BP: (!) 123/102 BP Location: Right arm Patient Position (BP): Sitting Pulse: (!) 111 Resp: 20 Temp: 98.4 ??F (36.9 ??C) TempSrc: Oral SpO2: 93% Weight: 99.9 kg (220 lb 3.8 oz) Height: 5' 4 (1.626 m) Pain Scale: 8 Physical Exam: General appearance: Alert, in moderate to severe distress Neck: supple, trachea midline Lungs: Increased respiratory effort and rate Abdomen: Soft Extremities: moves all extremities Skin: pink, warm, dry Neurologic: Grossly normal Discussed patient's pain and/or nausea management. A medical screening exam was initiated in [...] may have been created by an artificial vice president of compliance software. Effort has been done to assure accuracy of vice president of compliance. Any obvious errors or omissions should be clarified with the author of the document. RALEIGH Carmen * Tresa Mueller MD - 01/07/2025 9:47 PM CDT Images from the original note were not included. HISTORY OF PRESENT ILLNESS History of Present Illness This is a patient with a history of COPD presenting with shortness of breath. The patient experienced a sudden onset of breathlessness while lying down, which persisted for 15 to 20 minutes and was severe enough to prevent her from getting out of bed. She sought help from her friend, who noticed a bluish discoloration of her lips. The patient was discharged from the hospitalyesterday and received a breathing treatment in triage approximately 10 minutes ago. She reports norecent fevers but has had an increase in coughing frequency. She is not aware of any sick contacts at home. The patient also reports mild chest pain, which was not present during the onset of her symptoms. She was sleeping when these symptoms began. She has not introduced any new bedding or pets into her home environment. The patient is currently on 4 liters of oxygen at home and does not use BiPAP or CPAP. Her last course of steroids was completed last week. She reports no wheezing prior to her treatment. Initially when asked the patient denied any chest pain however at the end of the conversation she did admit to having episodes of chest pain earlier tonight. Denies any chest pain at this time. The patient has been experiencing swelling in her hands, which was also present during her previoushospital visit. Family arrived sometime later and reports that she has had recurrent episodes of syncope. They report that this has been ongoing for the past 2 months and they have been telling physicians about it but no one has done anything about it . She apparently had an episode yesterday as well as the day she was discharged from the hospital. The patient also reports experiencing pain in both arms and legs. PAST MEDICAL HISTORY REVIEWED MEDICAL: Patient has a past medical history of Anxiety, Arthritis, Arthropathy, unspecified, site unspecified, Atrial flutter ([facility]), Bipolar affective disorder ([facility]), Breast cancer ([facility]) (2001), Breast mass (08/22/2010), Cervical neck pain with evidence of disc disease, Chronic hepatic failure, Con genital absence of uterus, Congenital absence of vagina, Congenital anomaly, Congestive heart failure, Coronary artery disease, Deep vein thrombosis (DVT) ([facility]) (2023), Depression (08/22/2010), Diabetes mellitus (2023), Difficult intravenous access, Dyspnea (08/15/2024), Dyspnea on exertion, Emphysema of lung, GERD (gastroesophageal reflux disease), H/O heart artery stent, H/O mastectomy, right, 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 SURGICAL: Patient has a past [...] (Left, 07/20/2024); splenectomy; insert midline iv (10/31/2024); insert midline iv (12/10/2024); and insert midline iv (01/04/2025). ALLERGIES Ketorolac tromethamine, Prochlorperazine, Propoxyphene, Tramadol, Codeine, and Propoxyphene n-acetaminophen PHYSICAL EXAM INITIAL VS BP: (!) 123/102 (01/07/252150), Heart Rate: (!) 111 bpm (01/07/252150), Resp: 20 (01/07/252150),Pulse: (!) 111 (01/07/252150), Temp: 98.4 ??F (36.9 ??C) (01/07/252150), Temp src: Oral (), SpO2: 93 % (01/07/252150), Height: 5' 4 (162.6 cm) (01/07/252150), Weight: 99.9 kg (220 lb 3.8 oz) (01/07/252150), BMI (Calculated): (!) 37.79 (01/07/252150) No LMP recorded. 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 Blood pressure 127/53, pulse 93, temperature 98.4 ??F (36.9 ??C), temperature source Oral, resp. rate 24, height 5' 4 (1.626 m), weight 99.9 kg (220 lb 3.8 oz), SpO2 96%, not currently . Physical Exam Vitals and nursing note reviewed. Constitutional: General: She is not in acute distress. HENT: Head: Normocephalic and atraumatic. Nose: Nose normal. Eyes: Conjunctiva/sclera: Conjunctivae normal. Pupils: Pupils are equal, round, and reactive to light. Cardiovascular: Rate and Rhythm: Regular rhythm. Tachycardia present. Heart sounds: Normal heart sounds. Pulmonary: Effort: Pulmonary effort is normal. No respiratory distress. Breath sounds: Decreased breath sounds present. No wheezing. Comments: Diminished lung sounds throughout no definite wheezing no crackles Mild distress Abdominal: General: There is no distension. Palpations: Abdomen is soft. Tenderness: There is no abdominal tenderness. There is no guarding or rebound. Comments: (abdominal includes gi system as noted) Musculoskeletal: General: Normal range of motion. Cervical back: Normal range of motion and neck supple. Right lower leg: Edema present. Left lower leg: Edema present. Comments: 2+ ankle edema Mild edema bilateral hands Skin: General: Skin is warm and dry. Capillary Refill: Capillary refill takes less than 2 seconds. Findings: No erythema or rash. Neurological: General: No focal deficit present. Mental Status: She is alert and oriented to person, place, and time. Motor: No abnormal muscle tone. Psychiatric: Behavior: Behavior normal. Physical Exam Respiratory: No wheezing detected Integument/Skin: Mild edema noted in the hands DIAGNOSTICS LAB: CBC WITH DIFFERENTIAL - Abnormal Result Value WBC 6.5 NRBCS 1 (*) RBC 3.60 (*) HEMOGLOBIN 10.4 (*) HEMATOCRIT 34.2 (*) MCV 95.0 MCH 28.9 MCHC 30.4 PLATELETS 176 MPV 10.8 RDW 18.7 (*) RDW-STDEV 65.8 (*) NEUTROPHILS 54 LYMPHOCYTES 32 MONOCYTES 12 (*) EOSINOPHILS 1 BASOPHILS 0 IMMATURE GRANULOCYTES 1 NEUTROPHIL ABSOLUTE 3.48 LYMPHOCYTE ABSOLUTE 2.08 MONOCYTE ABSOLUTE 0.78 (*) EOSINOPHIL ABSOLUTE 0.08 BASOPHILS ABSOLUTE 0.02 IMMATURE GRANULOCYTES ABSOLUTE 0.06 SMEAR REVIEWED: NN - No Action Needed COMPREHENSIVE METABOLIC PANEL - Abnormal SODIUM 141 POTASSIUM 3.5 CHLORIDE 100 CO2 29 CALCIUM 9.5 BUN 18 CREATININE 0.58 GLUCOSE 346 (*) TOTAL PROTEIN 6.3 (*) ALBUMIN 3.5 BILIRUBIN TOTAL <0.2 ALKALINE PHOSPHATASE 144 (*) AST 17 ALT 21 GFR >60 ANION GAP 12 TROPONIN BASELINE, 5TH GEN - Abnormal TROPONIN T, BASELINE 5TH GEN 23 (*) TROPONIN 2 HR, 5TH GEN - Abnormal TROPONIN T, 2 HR 5TH GEN 24 (*) DELTA 2HR TROPONIN T 1 PROTIME-INR - Abnormal PROTIME 17.5 (*) INR 1.4 (*) BRAIN NATRIURETIC PEPTIDE, BNP OR PROBNP - Normal PROBNP, N TERMINAL 110 RESPIRATORY PATHOGEN PCR PANEL TROPONIN 6 HR, 5TH GEN RADIOLOGY: CTA CHEST W AND/OR WO CONTRAST Radiologist Impression IMPRESSION: No evidence of acute cardiopulmonary disease; negative for pulmonary embolism. Stable left lower lobe basilar consolidation. Mild multichamber cardiomegaly with moderate three-vessel coronary atherosclerosis. XR CHEST PA OR AP 1 VW Radiologist Impression IMPRESSION: Increased opacities in the lung bases probably represent atelectasis from central vascular congestion or pneumonia in appropriate clinical setting. EKG: My interpretation time 2155 rate 108 sinus tachycardia T wave inversion in 2 3 T wave flattening in aVF and laterally compared to 01/05/2025 had similar morphology PROCEDURES Procedures MEDICAL DECISION MAKING AND PLAN OF CARE Medical Decision Making: Presenting problems: Patient presents with shortness of breath, chest pain Differential diagnosis includes, but is not limited to, COPD exacerbation, CHF, pneumonia, PE, ACS,angina,. By virtue of history and physical, some of these diagnoses can be excluded. Studies ordered and reviewed (See Studies and Interpretation below) I reviewed notes from prior patient encounters which are notable for: Patient had recent admission 01/04/2025 to yesterday 01/06/2025 for shortness of breath and chest pain admitted for evaluation and management of acute on chronic hypoxic respiratory failure secondary to combined systolic and diastolic heart failure and elevated BNP of 703 hyperglycemia 468 lactic acid of 4.8 managed with IV Lasix 80 mg twice daily required BiPAP briefly in the ED and was weaned to 4 L nasal cannula she was managed for subtherapeutic INR received warfarin education also started on pantoprazoleShe was additionally admitted on 12/28 for respiratory failure required BiPAP for COPD exacerbation review of the chart shows the patient has been hospitalized for majority of the past several months for respiratory issues Patient Name Le Diaz Legal Sex Female Exam Information Status Exam Begun Exam Ended Final [99] 01/06/2025 08:07 01/06/2025 08:18 Conclusion Rest/Stress One-day SPECT Myocardial Perfusion Imaging with [...] axis views. All imaging was performed on [employer] and data analyzed using [employer]. The resting heart rate was 96 beats per minute and peak heart rate during stress was 119 beats per minute. Blood pressure was 125/74 mmHg at rest and 131/79 mm Hg at peak stress. Blood pressure response was appropriate during the stress procedure. The resting electrocardiogram demonstrated atrial rhythm with PVC, possible old inferior CA, mild nonspecific ST-segment changes. During stress, no [...] with LVEF 35-39%. Lm Zimmerman MD, FAC, [facility] DiazVanessa Procedures: NM MYOCARD PERF IMAG SPECT MULT, CO PHARMACOLOGICAL STRESS TEST Date of Study: 01/06/2025 ( 9:24 AM) Ordering Provider: Shailesh Elaine MD Clinical Indications: Chest pain/anginal equiv, high CAD risk, not treadmill candidate Reading Physicians Cardiology: Lm Zimmerman MD Patient Information Patient Name Le Diaz Legal Sex Female Exam Information Status Exam Begun Exam Ended Final [99] 01/06/2025 07:20 01/06/2025 09:24 Conclusion Rest/Stress One-day SPECT Myocardial Perfusion Imaging with [...] axis views. All imaging was performed on [employer] and data analyzed using [employer]. The resting heart rate was 96 beats per minute and peak heart rate during stress was 119 beats per minute. Blood pressure was 125/74 mmHg at rest and 131/79 mm Hg at peak stress. Blood pressure response was appropriate during the stress procedure. The resting electrocardiogram demonstrated atrial rhythm with PVC, possible old inferior CA, mild nonspecific ST-segment changes. During stress, no [...] defect with LVEF 35-39%. Lm Zimmerman MD, [facility], [facility] Additional information obtained from independent historian, Parent, . I discussed the case with provider(s) indicated below. The following social determinants of health affected my care of this patient: None Risk of complications and/or morbidity/mortality risks with patient management: COPD, CHF, CAD Intravenous and/or prescription medications required: Medications Administered During the ED Stay from 01/07/20257 to 01/08/2025 0431 Date/Time Order Dose Route Action 01/07/2025 2210 CDT ipratropium-albuteroL (DUONEB) 0.5 mg-3 mg(2.5 mg base)/3 mL inhalation solution 3 mL 3 mL Inhalation Given 01/08/2025 0018 CDT HYDROcodone-acetaminophen (NORCO) 7.5-325 mg per tablet 1 Tablet 1 Tablet Oral Given 01/08/2025 0149 CDT HYDROmorphone (PF) (DILAUDID) injection 0.3 mg 0.3 mg IV Given 01/08/2025 0128 CDT iopamidoL (ISOVUE-300) 61% injection (drawn from multi-use bulk pack) 65 mL 65 mL IV Contrast Given 01/08/2025 0128 CDT sodium chloride flush injection 10 mL 10 mL IV Given 01/08/2025 0415 CDT methylPREDNISolone sodium succinate (SOLU-Medrol) 125 mg in sterile water 2 mL injection 125 mg IV Admin by Another Clinician (Comment) I considered admission vs discharge. Through shared decision-making with the patient, the decision was made to Admit. Progress note(s) and discussions with other providers: Patient presents with shortness of breath and episodes of chest pain. Review of chart shows that she was just discharged 2 days ago after admission for CHF. She did have a stress test during that hospitalization although I do not see any cardiology consultation or discussions about the stress test.It did show some moderate size and intensity mostly fixed inferior and inferior lateral defect withminimal reversibility consistent with injury and very mild pedro-infarction ischemia in the RCA distribution. EF estimated 46%. I was then told by family that she has had 2 episodes of syncope since discharge from the hospital. They report she has had recurrent syncope over the past 2 months and they were concerned that no one had addressed it. Given these 2 things plan will be admission for cardiology consultation and further evaluation for possible syncope. Patient was discussed with Dr. Griffin admission. Imaging (chest x-ray) was reviewed by me and notable for opacities versus infiltrate in the bilateral bases. Labs were reviewed by me and notable for see below Labs Reviewed CBC WITH DIFFERENTIAL - Abnormal; Notable for the following components: Result Value NRBCS 1 (*) RBC 3.60 (*) HEMOGLOBIN 10.4 (*) HEMATOCRIT 34.2 (*) RDW 18.7 (*) RDW-STDEV 65.8 (*) MONOCYTES 12 (*) MONOCYTE ABSOLUTE 0.78 (*) All other components within normal limits COMPREHENSIVE METABOLIC PANEL - Abnormal; Notable for the following components: GLUCOSE 346 (*) TOTAL PROTEIN 6.3 (*) ALKALINE PHOSPHATASE 144 (*) All other components within normal limits TROPONIN BASELINE, 5TH GEN - Abnormal; Notable for the following components: TROPONIN T, BASELINE 5TH GEN 23 (*) All other components within normal limits Narrative: Troponin elevated. TROPONIN 2 HR, 5TH GEN - Abnormal; Notable for the following components: TROPONIN T, 2 HR 5TH GEN 24 (*) All other components within normal limits Narrative: Troponin elevated. Delta not changing. Delay in collection of timed specimen beyond recommended collection interval. Results must be interpreted in clinical context. PROTIME-INR - Abnormal; Notable for the following components: PROTIME 17.5 (*) INR 1.4 (*) All other components within normal limits Narrative: Expected Values for INR: DVT/PE Goal INR 2.5; range 2.0 - 3.0 Valve Replacement Tissue Goal INR 2.5; range 2.0 - 3.0 Valve Replacement Mechanical Goal INR 3.0; range 2.5 - 3.5 POST-CA Goal INR 2.5; range 2.0 - 3.0 or Goal INR 3.0; range 2.5 - 3.5 Atrial Fibrillation Goal INR 2.5; range 2.0 - 3.0 Ischemic Stroke Goal INR 2.5; range 2.0 - 3.0 BRAIN NATRIURETIC PEPTIDE, BNP OR PROBNP - Normal RESPIRATORY PATHOGEN PCR PANEL TROPONIN 6 HR, 5TH GEN Medical Decision Making Amount and/or Complexity of Data Reviewed Labs: ordered. Radiology: ordered. Risk Prescription drug management. Decision regarding hospitalization. Clinical Scoring & Consults . New Prescriptions for this Encounter LAST VS BP: 127/53 (01/08/25114), Heart Rate: 97 bpm (01/08/25114), Resp: 24 (01/07/252344), Pulse: 93(01/08/25114), Temp: 98.4 ??F (36.9 ??C) (01/07/252150), Temp src: Oral (01/07/252150), SpO2: 96 % (01/08/25114) CLINICAL IMPRESSION Diagnoses Diagnosis Comment Added By Time Added Chest pain, unspecified type [R07.9] Tresa Mueller MD 01/08/2025 4:37 AM Syncope and collapse [R55] Tresa Mueller MD 01/08/2025 4:37 AM Dyspnea, unspecified type [R06.00] Tresa Mueller MD 01/08/2025 4:38 AM Subtherapeutic international normalized ratio (INR) [R79.1] Tresa Mueller MD 01/08/2025 4:38 AM Hyperglycemia [R73.9] Tresa Mueller MD 01/10/2025 2:35 PM DISPOSITION, EDUCATION AND MEDICATION RECONCILIATION Medications reconciled. See after visit summary for patient education on discharged patients. documented in this encounter Miscellaneous Notes * Care Plan - Saleem Bronson RN - 01/08/2025 5:14 PM CDT Shift Summary Severe bilateral leg pain was reported early in the shift, with pain management interventions including morphine and HYDROcodone-acetaminophen resulting in improved comfort later in the day. Multiple episodes of high blood glucose were addressed with insulin lispro administration throughout the shift. EKG performed with abnormal findings documented; further evaluation may be needed. Vitals fluctuated but remained within ranges that did not require immediate escalation during the shift. Overall, comfort improved and pain was better managed by the end of the shift. Verbalizes/displays acceptable comfort level or baseline comfort level: Pain in bilateral legs was initially rated as severe at rest and with activity, with some improvement in comfort after interventions and administration of morphine and HYDROcodone-acetaminophen; patient was content/relaxed while sleeping later in the shift. * Gen AI ED Handoff - GENERATIVE AI HANDOFF NOTE - 01/08/2025 5:45 AM CDT SITUATION: Patient ( ) is a 59-year-old female who has been in the ER for 7 hours. She came to the ER due to shortness of breath. The patient's most recent care team on record included: Luna Fontanez. BACKGROUND: This patient has allergies to Ketorolac Tromethamine, Prochlorperazine, Propoxyphene, Tramadol, Codeine, Propoxyphene N-acetaminophen. ASSESSMENT: Patient's most recent vitals recorded in flowsheets were as follows: BP: 112/57 T: 98.4 F RR: 24 SPO2: 97% HR: 96 WT: 220.2 LBS BMI: 37.8 Most recent Glucose Value: 346. Completed: 2025-01-08 00:25. Lines most recently placed include: angiocath at 2025-01-07 23:38. Last recorded oxygen source was nasal cannula. Prev 45 Day Discharges: 9. Readmission detail: 2025-01-04 INPATIENT Acute on chronic combined systolic and diastolic heart failure;2025-01-03 EMERGENCY COPD with exacerbation ([facility]);2024-12-28 INPATIENT Respiratory distress;2024-12-23 EMERGENCY;2024-12-17 [place] [place]2024-12-09 [place]PAT[place] COPD exacerb[place] [place] [place]2024-11-28 [place]PATIENT COPD exacerbation [place] [place]2024-11-27 EMERGENCY Dyspnea, unspecified type;2024-11-21 INPATIENT Centrilobular emphysema. The patient, Le Diaz, presents with shortness of breath and chest pain. She has a history of hypoxic respiratory failure, combined CHF, COPD, chronic pain syndrome, mood disorder, hypertension, hyperlipidemia, CAD, GERD, IDDM, PE on anticoagulation, and obesity. She has recurrent episodes of syncope, a history of stent placement, and is currently experiencing tachycardia and edema in the extremities. The patient has a BMI of 37.8, indicating severe obesity, and is on home oxygen therapy. Lab results show normocytic anemia, elevated glucose levels, and elevated troponin levels. The patient is on long-term insulin therapy for diabetes and has a subtherapeutic INR. RECOMMENDATION: The patient is admitted for further management of chest pain and shortness of breath. Cardiology consultation is recommended for further evaluation of syncope and possible ischemia. Continue aspirin, Lipitor, Toprol-XL, and Ranexa for CAD management. Monitor and manage COPD exacerbation with Solu-Medrol taper, home inhalers, and as-needed albuterol. Continue Lasix, Entresto, and Toprol-XL for CHF management. Maintain diabetic management with Lantus and sliding scale coverage. An additional dose of warfarin was ordered to address subtherapeutic INR, and INR levels should be monitored. The patient is on a diabetic diet and is a full code. Telemetry monitoring is advised, and the patient is on observation status. Pharmacy to monitor anticoagulation per protocol. *This summary was created by [employer]. The responses are meant to enhance, not replace normal workflow. Please contact the ED nurse for any additional information.* * Care Plan - Elisha Jeter RN - 01/07/2025 11:39 PM CDT Problem: Infection, Risk/Actual (Adult) Goal: Infection, Risk/Actual: Infection Prevention/Resolution/Control Description: Patient will demonstrate the desired outcomes. Outcome: Progressing Le 's peripheral IV will remain free from infection. * ED Bed Hold Comment Note - Meir Vences RN - 01/07/2025 10:54 PM CDT Bed: 10 Expected date: 01/07/25 Expected time: Means of arrival: Comments: Triage documented in this encounter Plan of Treatment Upcoming Encounters Date Type Department Care Team (Latest Contact Info) Description 01/25/2025 12:00 PM BUS COMPANY MANAGER Hospital Encounter [place] [id number] [phone] Kumar Ochoa MD [address] [phone] Combined forms of age-related cataract of right eye 01/25/2025 1:00 PM BUS COMPANY MANAGER - 01/25/2025 2:13 PM BUS COMPANY MANAGER Surgery [place] [id number] [phone] Kumar Ochoa MD [address] [address] CATARACT EXTRACTION IOL INSERTION FEMTO LASER ASSISTED LEVEL 1 01/26/2025 8:30 AM BUS COMPANY MANAGER Office Visit [facility] Ophthalmology [place] [address] [phone] Edurado Craven MD [address] [address] 02/01/2025 9:00 AM BUS COMPANY MANAGER Office Visit [facility] Ophthalmology [place] [address] [place] [phone] Paul Bustillos, OD [address] [place] [address] 02/14/2025 3:00 PM BUS COMPANY MANAGER Office Visit [facility] Pulmon[facility] [address] [place] [address] Angeli Miles MD [address] [place] [phone] Scheduled Procedures Name Priority Associated Diagnoses Date/Ti me CATARACT EXTRACTION IOL INSERTION FEMTO LASER ASSISTED LEVEL 1 Combined forms of age-related cataract of right eye Right retinal detachment 01/25/2025 1:00 PM BUS COMPANY MANAGER PARS PLANA VITRECTOMY WITH LASER Combined forms of age-related cataract of right eye Right retinal detachment 01/25/2025 1:00 PM BUS COMPANY MANAGER EYE PLACEMENT OF SILICONE OIL Combined forms of age-related cataract of right eye Right retinal detachment 01/25/2025 1:00 PM BUS COMPANY MANAGER documented as of this encounter Goals Goal Patient Goal Type Associated Problems Recent Progress Patient-Stated? Author Heart Failure Goal Care Plan Heart Failure Problem No Latonya Anguiano LPN documented as of this encounter Procedures Procedure Name Priority Date/Time Associated Diagnosis Comments TELEMETRY REPORT 01/10/2025 2:48 AM CDT US VENOUS DOPPLER LEG BILATERAL Routine 01/09/2025 8:44 AM CDT POC GLUCOSE Routine 01/09/2025 6:59 AM CDT PROTIME-INR Routine 01/09/2025 6:27 AM CDT POC GLUCOSE Routine 01/09/2025 1:27 AM CDT GLUCOSE LEVEL Stat 01/08/2025 11:56 PM CDT POC GLUCOSE Routine 01/08/2025 11:30 PM CDT POC GLUCOSE Routine 01/08/2025 9:36 PM CDT POC GLUCOSE Routine 01/08/2025 8:13 PM CDT GLUCOSE LEVEL Timed Study 01/08/2025 8:02 PM CDT POC GLUCOSE Routine 01/08/2025 7:26 PM CDT POC GLUCOSE Routine 01/08/2025 7:13 PM CDT GLUCOSE LEVEL Stat 01/08/2025 5:30 PM CDT POC GLUCOSE Routine 01/08/2025 4:58 PM CDT POC GLUCOSE Routine 01/08/2025 11:05 AM CDT RT ASSESS AND TREAT Routine 01/08/2025 9 :57 AM CDT POC GLUCOSE Routine 01/08/2025 7:20 AM CDT COPD EDUCATION RT Stat 01/08/2025 4:3 6 AM CDT TROPONIN 2 HR, 5TH GEN Timed Study 01/08/2025 1:48 AM CDT CTA CHEST W AND/OR WO CONTRAST Stat 01/08/2025 1:27 AM CDT PROTIME-INR Stat 01/08/2025 12:17 AM CDT TROPONIN BASELINE, 5TH GEN Stat 01/07/2025 11:40 PM CDT CBC WITH DIFFERENTIAL Stat 01/07/2025 11:40 PM CDT BRAIN NATRIURETIC PEPTIDE, BNP OR PROBNP Stat 01/07/2025 11:40 PM CDT COMPREHENSIVE METABOLIC PANEL Stat 01/07/2025 11:40 PM CDT XR CHEST PA OR AP 1 VW Stat 01/07/2025 10:03 PM CDT EKG 12-LEAD Stat 01/07/2025 9:56 PM CDT RT ASSESS AND TREAT Stat 01/07/2025 9 :52 PM CDT documented in this encounter Results * TELEMETRY REPORT (01/10/2025 2:48 AM CDT) us Provider Scanning ECG ORDERABLES Final Result * US VENOUS DOPPLER LEG BILATERAL (01/09/2025 8:44 AM CDT) Anatomical Region Laterality Modality Lower Extremity Ultrasound 01/09/2025 7:30 AM CDT Narrative 01/09/2025 2:22 PM CDT [facility] Cardiovascular Services Noninvasive Vascular Laboratory [address] [place] [address] Noninvasive Vascular Lab Venous Exam Complete Lower Extremity Duplex Patient: Le Diaz Study ID: US VENOUS DOPPLE Gender: F : 1965 Age: 59 Room: [facility] Height: Weight: BSA: Pt status: Inpatient Study Date: 01/09/2025 Study Time: 07:30:16 AM BSA: Ordering: Kapil Deluna Interpreting:Lm Zimmerman Drill Punch Operator: CORKY Indications: Extremity edema. Lower extremity pain. Summary Impression: No evidence of deep or superficial venous thrombosis involving the right lower extremity and left lower extremity. No change from the studies of 11/22/2024 and 07/14/2024. Study data: Complete lower extremity venous duplex evaluation. Doppler flow study including spectral analysis, color and mariscal scale imaging. Location: Bedside. Patient status: Inpatient. [...] phasicity; spontaneous; compressible; normal augmentation - Left common femoral Patent; Normal phasicity; [...] Patent; Normal phasicity; spontaneous; compressible; normal augmentation [facility] Vascular Lab is accredited with the Intersocietal Commission for the Accreditation of Vascular Laboratories (ICAVL) Prepared and Electronically Authenticated Lm Zimmerman Confirmed 01/09/2025 14:22 Procedure Note Lm Zimmerman MD - 01/09/2025 [facility] Cardiovascular Services Noninvasive Vascular Laboratory [address] [place] [address] Noninvasive Vascular Lab Venous Exam Complete Lower Extremity Duplex Patient: Le Diaz Study ID: US VENOUS DOPPLE Gender: F : 1965 Age: 59 Room: [facility] Height: Weight: BSA: Pt status: Inpatient Study Date: 01/09/2025 Study Time: 07:30:16 AM BSA: Ordering: Kapil Deluna Interpreting:Lm Zimmerman Drill Punch Operator: CORKY Indications: Extremity edema. Lower extremity pain. Summary Impression: No evidence of deep or superficial venous thrombosis involving the rightlower extremity and left lower extremity. No change from the studies of11/22/2024 and 07/14/2024. Study data: Complete lower extremity venous duplex evaluation.Doppler flow study including spectral analysis, color and mariscal scale imaging. Location: Bedside. Patient status: Inpatient. Study status:Routine. Procedure: A vascular evaluation was performed. Image [...] Normal phasicity; spontaneous;compressible; normal augmentation - Left common femoral Patent; Normal phasicity; [...] saphenous Patent; Normal phasicity; spontaneous;compressible; normal augmentation [facility] Vascular Lab is accredited with theIntersocietal Commission for the Accreditation of Vascular Laboratories (ICAVL) Prepared and Electronically Authenticated Lm Zimmerman Confirmed 01/09/2025 14:22 us Kapil Deluna DO US ORDERABLES Final R esult * (ABNORMAL) POC GLUCOSE (01/09/2025 6:59 AM CDT) [facility] GLUCOSE POC 306(H) 74 - 99 mg/dL 01/09/2025 6:59 AM CDT [facility] SPECIMEN SOURCE, GLUCOSE POC Capillary 01/09/2025 6:59 AM CDT [facility] Blood, whole 01/09/2025 6:59 AM CDT 01/09/2025 7:23 AM CDT Kapil Deluna DO POINT OF CARE TESTING F inal Result [facility] CLIA # [id number] [address] [address] [place], [place] [address] * (ABNORMAL) PROTIME-INR (01/09/2025 6:27 AM CDT) Pathologist [facility] PROTIME 18.8(H) 12.7 - 14.9 Seconds 01/09/2025 6:50 AM CDT [facility] INR 1.5(H) 0.8 - 1.2 01/09/2025 6:50 AM CDT [facility] Blood Venipuncture / Unknown 01/09/2025 6:27 AM CDT 01/09/2025 6:31 AM CDT Narrative [facility] - 01/09/2025 6:50 AM CDT Expected Values for INR: DVT/PE Goal INR 2.5; range 2.0 - 3.0 Valve Replacement Tissue Goal INR 2.5; range 2.0 - 3.0 Valve Replacement Mechanical Goal INR 3.0; range 2.5 - 3.5 POST-CA Goal INR 2.5; range 2.0 - 3.0 or Goal INR 3.0; range 2.5 - 3.5 Atrial Fibrillation Goal INR 2.5; range 2.0 - 3.0 Ischemic Stroke Goal INR 2.5; range 2.0 - 3.0 Stefanie Ferrara MD HEMATOLOGY ORDERABLES Final Resu lt [facility] CLIA # [id number] [address] [place] [address] * (ABNORMAL) POC GLUCOSE (01/09/2025 1:27 AM CDT) Pathologist [facility] GLUCOSE POC 329(H) 74 - 99 mg/dL 01/09/2025 1:27 AM CDT [facility] SPECIMEN SOURCE, GLUCOSE POC Capillary 01/09/2025 1:27 AM CDT [facility] Blood, whole 01/09/2025 1:27 AM CDT 01/09/2025 1:36 AM CDT Kapil Deluna DO POINT OF CARE TESTING F inal Result Performing Organization Address [facility]/ZIP Co de Phone Number [facility] CLIA # [id number] [id number] [place] [address] * (ABNORMAL) GLUCOSE LEVEL (01/08/2025 11:56 PM CDT) GLUCOSE 414(HH) 74 - 99 mg/dL 01/09/2025 12:37 AM CDT [facility] Blood Venipuncture / Unknown 01/08/2025 11:56 PM CDT 01/09/2025 12:04 AM CDT Ronak Cortes MD CHEMISTRY ORDERABLE S Final Result Performing Organization Address [facility] Co de Phone Number [facility] CLIA # [id number] [phone] [place], [place] [address] * (ABNORMAL) POC GLUCOSE (01/08/2025 11:30 PM CDT) GLUCOSE POC 406(HH) 74 - 99 mg/dL 01/08/2025 11:30 PM CDT [facility] SPECIMEN SOURCE, GLUCOSE POC Capillary 01/08/2025 11:30 PM CDT [facility] COMMENT, GLU POC Alerted Nurse/MARIELLA/DR 01/08/2025 11:30 PM CDT [facility] Blood, whole 01/08/2025 11:3 0 PM CDT 01/09/2025 1:36 AM CDT Kapil Deluna DO POINT OF CARE TESTING F inal Result Performing Organization Address [facility] Co de Phone Number [facility] CLIA # [id number] [address] [facility] [place] [address] * (ABNORMAL) POC GLUCOSE (01/08/2025 9:36 PM CDT) [facility] GLUCOSE POC 435(HH) 74 - 99 mg/dL 01/08/2025 9:36 PM CDT [facility] SPECIMEN SOURCE, GLUCOSE POC Capillary 01/08/2025 9:36 PM CDT [facility] COMMENT, GLU POC Alerted Nurse/MARIELLA/DR 01/08/2025 9:36 PM CDT [facility] Blood, whole 01/08/2025 9:36 PM CDT 01/08/2025 9:45 PM CDT Kapil Deluna DO POINT OF CARE TESTING F inal Result Performing Organization Address [facility]/ZIP Co de Phone Number [facility] CLIA # [id number] [address] [address] * (ABNORMAL) POC GLUCOSE (01/08/2025 8:13 PM CDT) [facility] GLUCOSE POC 456(HH) 74 - 99 mg/dL 01/08/2025 8:13 PM CDT [facility] SPECIMEN SOURCE, GLUCOSE POC Capillary 01/08/2025 8:13 PM CDT [facility] COMMENT, GLU POC Alerted Nurse/MARIELLA/DR 01/08/2025 8:13 PM CDT [facility] Blood, whole 01/08/2025 8:13 PM CDT 01/08/2025 9:34 PM CDT Kapil Deluna DO POINT OF CARE TESTING F inal Result Performing Organization Address [facility]/ZIP Co de Phone Number [facility] CLIA # [id number] [address] [id number] * (ABNORMAL) GLUCOSE LEVEL (01/08/2025 8:02 PM CDT) GLUCOSE 498(HH) 74 - 99 mg/dL 01/08/2025 8:45 PM CDT [facility] Blood Venipuncture / Unknown 01/08/2025 8:02 PM CDT 01/08/2025 8:13 PM CDT Stefanie Ferrara MD CHEMISTRY ORDERABLES Final Resul t Performing Organization Address [facility]/ZIP Co de Phone Number [facility] CLIA # [id number] [address] [id number] * (ABNORMAL) POC GLUCOSE (01/08/2025 7:26 PM CDT) GLUCOSE POC 474(HH) 74 - 99 mg/dL 01/08/2025 7:26 PM CDT [facility] SPECIMEN SOURCE, GLUCOSE POC Capillary 01/08/2025 7:26 PM CDT [facility] COMMENT, GLU POC Alerted Nurse/MARIELLA/DR 01/08/2025 7:26 PM CDT [facility] Blood, whole 01/08/2025 7:26 PM CDT 01/08/2025 7:34 PM CDT Kapil Deluna DO POINT OF CARE TESTING F inal Result Performing Organization Address [facility]/ZIP Co de Phone Number [facility] CLIA # [id number] [address] [phone] * (ABNORMAL) POC GLUCOSE (01/08/2025 7:13 PM CDT) GLUCOSE POC 495(HH) 74 - 99 mg/dL 01/08/2025 7:13 PM CDT [facility] SPECIMEN SOURCE, GLUCOSE POC Capillary 01/08/2025 7:13 PM CDT [facility] COMMENT, GLU POC Alerted Nurse/MARIELLA/DR 01/08/2025 7:13 PM CDT [facility] Blood, whole 01/08/2025 7:13 PM CDT 01/08/2025 7:34 PM CDT Kapil Deluna DO POINT OF CARE TESTING F inal Result Performing Organization Address [facility]/ZIP Co de Phone Number [facility] CLIA # [id number] [address] [address] [place] [address] * (ABNORMAL) GLUCOSE LEVEL (01/08/2025 5:30 PM CDT) GLUCOSE 566(HH) 74 - 99 mg/dL 01/08/2025 6:47 PM CDT [facility] Blood Venipuncture / Unknown 01/08/2025 5:30 PM CDT 01/08/2025 6:03 PM CDT Kapil Deluna DO CHEMISTRY ORDERABLES Fi nal Result Performing Organization Address [facility] Co de Phone Number [facility] CLIA # [id number] [address] [address] * (ABNORMAL) POC GLUCOSE (01/08/2025 4:58 PM CDT) GLUCOSE POC 546(HH) 74 - 99 mg/dL 01/08/2025 4:58 PM CDT [facility] SPECIMEN SOURCE, GLUCOSE POC Capillary 01/08/2025 4:58 PM CDT [facility] Blood, whole 01/08/2025 4:58 PM CDT 01/08/2025 5:31 PM CDT Kapil Deluna DO POINT OF CARE TESTING F inal Result [facility] CLIA # [id number] [address] [address] * (ABNORMAL) POC GLUCOSE (01/08/2025 11:05 AM CDT) GLUCOSE POC 440(HH) 74 - 99 mg/dL 01/08/2025 11:05 AM CDT [facility] SPECIMEN SOURCE, GLUCOSE POC Capillary 01/08/2025 11:05 AM CDT [facility] COMMENT, GLU POC Alerted Nurse/MARIELLA/DR 01/08/2025 11:05 AM CDT [facility] Blood, whole 01/08/2025 11:0 5 AM CDT 01/08/2025 11:21 AM CDT Kapil Deluna DO POINT OF CARE TESTING F inal Result [facility] CLIA # [id number] [facility] [address] * (ABNORMAL) POC GLUCOSE (01/08/2025 7:20 AM CDT) GLUCOSE POC 427(HH) 74 - 99 mg/dL 01/08/2025 7:20 AM CDT [facility] SPECIMEN SOURCE, GLUCOSE POC Capillary 01/08/2025 7:20 AM CDT [facility] COMMENT, GLU POC Alerted Nurse/MARIELLA/DR 01/08/2025 7:20 AM CDT [facility] Blood, whole 01/08/2025 7:20 AM CDT 01/08/2025 7:30 AM CDT Stefanie Ferrara MD POINT OF CARE TESTING Final Resu lt Performing Organization Address [facility]/ZIP Co de Phone Number [facility] [employer] [facility] CLIA # [id number] [phone] [place] [address] * (ABNORMAL) TROPONIN 2 HR, 5TH GEN (01/08/2025 1:48 AM CDT) TROPONIN T, 2 HR 5TH GEN 24(H) <=10 ng/L 01/08/2025 2:24 AM CDT [facility] [employer] [facility] DELTA 2HR TROPONIN T 1 See Interp. 01/08/2025 2:24 AM CDT [facility] [employer] [facility] Blood Venipuncture / Unknown 01/08/2025 1:48 AM CDT 01/08/2025 1:53 AM CDT Narrative [facility] [employer] [facility] - 01/08/2025 2:24 AM CDT Troponin elevated. Delta not changing. Delay in collection of timed specimen beyond recommended collection interval. Results must be interpreted in clinical context. Pablo Morales HYDRODYNAMICIST CHEMISTRY ORDERABLES Fi nal Result Performing Organization Address [facility] Co de Phone Number [facility] [employer] [facility] CLIA # [id number] [facility] [address] * CTA CHEST W AND/OR WO CONTRAST (01/08/2025 1:27 AM CDT) Anatomical Region Laterality Modality Chest Computed Tomogra phy 01/08/2025 1:21 AM CDT Impressions 01/08/2025 2:42 AM CDT IMPRESSION: No evidence of acute cardiopulmonary disease; negative for pulmonary embolism. Stable left lower lobe basilar consolidation. Mild multichamber cardiomegaly with moderate three-vessel coronary atherosclerosis. Narrative 01/08/2025 2:42 AM CDT EXAM: CTA CHEST W AND/OR WO CONTRAST DATE/TIME OF EXAM: 01/08/2025 1:27 AM REASON FOR EXAM: subtherapeutic inr, shortness of breath DIAGNOSIS: See Reason for Exam COMPARISON: CTA chest 12/17/2024 TECHNIQUE: Following the administration of intravenous contrast [...] No pleural effusion or pneumothorax. Upper abdomen: Hepatomegaly with hepatic steatosis. Soft tissues and Bones: No suspicious osseous lesions. Stable postsurgical changes of right mastectomy. Additional comments: None. Procedure Note Anu Mackay MD - 01/08/2025 EXAM: CTA CHEST W AND/OR WO CONTRAST DATE/TIME OF EXAM: 01/08/2025 1:27 AM REASON FOR EXAM: subtherapeutic inr, shortness of breath DIAGNOSIS: See Reason for Exam COMPARISON: CTA chest 12/17/2024 TECHNIQUE: Following the administration of intravenous contrast [...] No pleural effusion or pneumothorax. Upper abdomen: Hepatomegaly with hepatic steatosis. Soft tissues and Bones: No suspicious osseous lesions. Stable postsurgical changes of right mastectomy. Additional comments: None. IMPRESSION: No evidence of acute cardiopulmonary disease; negative for pulmonary embolism. Stable left lower lobe basilar consolidation. Mild multichamber cardiomegaly with moderate three-vessel coronary atherosclerosis. Tresa Mueller MD CT ORDERABLES Final Resul t * (ABNORMAL) PROTIME-INR (01/08/2025 12:17 AM CDT) PROTIME 17.5(H) 12.7 - 14.9 Seconds 01/08/2025 12:41 AM CDT [facility] [employer] [facility] INR 1.4(H) 0.8 - 1.2 01/08/2025 12:41 AM CDT [facility] Blood Venipuncture / Unknown 01/08/2025 12:17 AM CDT 01/08/2025 12:23 AM CDT Narrative [facility] [employer] [facility] - 01/08/2025 12:41 AM CDT Expected Values for INR: DVT/PE Goal INR 2.5; range 2.0 - 3.0 Valve Replacement Tissue Goal INR 2.5; range 2.0 - 3.0 Valve Replacement Mechanical Goal INR 3.0; range 2.5 - 3.5 POST-CA Goal INR 2.5; range 2.0 - 3.0 or Goal INR 3.0; range 2.5 - 3.5 Atrial Fibrillation Goal INR 2.5; range 2.0 - 3.0 Ischemic Stroke Goal INR 2.5; range 2.0 - 3.0 Tresa Mueller MD HEMATOLOGY ORDERABLES Final Result [facility] CLIA # [id number] [address] [place] [id number] * (ABNORMAL) TROPONIN BASELINE, 5TH GEN (01/07/2025 11:40 PM CDT) TROPONIN T, BASELINE 5TH GEN 23(H) <=10 ng/L 01/08/2025 12:17 AM CDT [facility] Blood Venipuncture / Unknown 01/07/2025 11:40 PM CDT 01/07/2025 11:44 PM CDT Narrative [facility] - 01/08/2025 12:17 AM CDT Troponin elevated. Pablo Kim [facility] CHEMISTRY ORDERABLES Fi nal Result Performing Organization Address City/[facility]/ZIP Co de Phone Number [facility] CLIA # [id number] [address] [place] [address] * BRAIN NATRIURETIC PEPTIDE, BNP OR PROBNP (01/07/2025 11:40 PM CDT) [facility] PROBNP, N TERMINAL 110 0 - 125 pg/mL 01/08/2025 12:21 AM CDT [facility] Comment: INTERPRETIVE COMMENT based on diagnosis: [...] years: >1800 pg/mL Blood Venipuncture / Unknown 01/07/2025 11:40 PM CDT 01/07/2025 11:44 PM CDT [facility] HYDRODYNAMICIST CHEMISTRY ORDERABLES Fi nal Result Performing Organization Address [facility]/ZIP Co de Phone Number [facility] CLIA # [id number] [id number] [place], [place] [id number] * (ABNORMAL) COMPREHENSIVE METABOLIC PANEL (01/07/2025 11:40 PM CDT) [facility] SODIUM 141 136 - 145 mmol/L 01/08/2025 12:25 AM [facility] POTASSIUM 3.5 3.5 - 5.1 mmol/L 01/08/2025 12:25 AM [facility] CHLORIDE 100 98 - 107 mmol/L 01/08/2025 12:25 AM [facility] CO2 29 22 - 29 mmol/L 01/08/2025 12:25 AM [facility] CALCIUM 9.5 8.6 - 10.0 mg/dL 01/08/2025 12:25 AM [facility] BUN 18 6 - 20 mg/dL 01/08/2025 12:25 AM [facility] CREATININE 0.58 0.51 - 0.95 mg/dL 01/08/2025 12:25 AM [facility] GLUCOSE 346(H) 74 - 99 mg/dL 01/08/2025 12:25 AM [facility] TOTAL PROTEIN 6.3(L) 6.4 - 8.3 g/dL 01/08/2025 12:25 AM [facility] ALBUMIN 3.5 3.5 - 5.2 g/dL 01/08/2025 12:25 AM [facility] BILIRUBIN TOTAL <0.2 0.0 - 1.0 mg/dL 01/08/2025 12:25 AM [facility] ALKALINE PHOSPHATASE 144(H) 35 - 104 U/L 01/08/2025 12:25 AM [facility] AST 17 10 - 35 U/L 01/08/2025 12:25 AM [facility] ALT 21 <=35 U/L 01/08/2025 12:25 AM [facility] GFR >60 >=60 mL/min/1.7 3 sq meter 01/08/2025 12:25 AM [facility] Comment:eGFR calculated with 2020 CKD-EPI equation. Vegetarian diet, extremely high or low muscle mass, and may affect results. Cystatin C with Glomerular Filtration Rate is a suitable alternative for these patients. ANION GAP 12 9 - 20 mmol/L 01/08/2025 12:25 AM CDT [facility] Blood Venipuncture / Unknown 01/07/2025 11:40 PM CDT 01/07/2025 11:44 PM CDT Pablo Morales HYDRODYNAMICIST CHEMISTRY ORDERABLES Fi nal Result [facility] CLIA # [id number] [address] [place] [id number] * (ABNORMAL) CBC WITH DIFFERENTIAL (01/07/2025 11:40 PM CDT) WBC 6.5 4.8 - 10.8 K/uL 01/07/2025 11:48 PM CDT [facility] NRBCS 1(H) <1 % 01/07/2025 11:48 PM CDT [facility] RBC 3.60(L) 4.20 - 5.40 M/uL 01/07/2025 11:48 PM CDT [facility] HEMOGLOBIN 10.4(L) 12.0 - 16.0 g/dL 01/07/2025 11:48 PM T [facility] HEMATOCRIT 34.2(L) 36.0 - 46.0 % 01/07/2025 11:48 PM CDT [facility] MCV 95.0 84.0 - 103.0 fL 01/07/2025 11:48 PM CDT [facility] MCH 28.9 27.0 - 34.0 pg 01/07/2025 11:48 PM CDT [facility] MCHC 30.4 30.0 - 35.0 g/dL 01/07/2025 11:48 PM CDT [facility] PLATELETS 176 140 - 440 K/uL 01/07/2025 11:48 PM [facility] MPV 10.8 8.9 - 12.8 fL 01/07/2025 11:48 PM [facility] RDW 18.7(H) 11.0 - 14.5 % 01/07/2025 11:48 PM [facility] RDW-STDEV 65.8(H) 37.0 - 54.0 fL 01/07/2025 11:48 PM [facility] NEUTROPHILS 54 42 - 75 % 01/07/2025 11:48 PM [facility] LYMPHOCYTES 32 24 - 44 % 01/07/2025 11:48 PM [facility] MONOCYTES 12(H) 2 - 10 % 01/07/2025 11:48 PM [facility] EOSINOPHILS 1 0 - 7 % 01/07/2025 11:48 PM [facility] BASOPHILS 0 0 - 1 % 01/07/2025 11:48 PM [facility] IMMATURE GRANULOCYTES 1 0 - 2 % 01/07/2025 11:48 PM [facility] NEUTROPHIL ABSOLUTE 3.48 2.00 - 8.00 K/uL 01/07/2025 11:48 PM [facility] LYMPHOCYTE ABSOLUTE 2.08 1.20 - 4.00 K/uL 01/07/2025 11:48 PM [facility] MONOCYTE ABSOLUTE 0.78(H) 0.10 - 0.60 K/uL 01/07/2025 11:48 PM [facility] EOSINOPHIL ABSOLUTE 0.08 0.00 - 0.70 K/uL 01/07/2025 11:48 PM [facility] BASOPHILS ABSOLUTE 0.02 0.00 - 0.20 K/uL 01/07/2025 11:48 PM [facility] IMMATURE GRANULOCYTES ABSOLUTE 0.06 0.00 - 0.10 K/uL 01/07/2025 11:48 PM [facility] SMEAR REVIEWED: NN - No Action Needed 01/07/2025 11:48 PM [facility] Blood Venipuncture / Unknown 01/07/2025 11:40 PM CDT 01/07/2025 11:43 PM CDT Pablo Kim McTeer HYDRODYNAMICIST HEMATOLOGY ORDERABLES F inal Result [id number] [id number] [facility] [address] * XR CHEST PA OR AP 1 VW (01/07/2025 10:03 PM CDT) Anatomical Region Laterality Modality Chest Computed Radiogr aphy 01/07/2025 10:0 3 PM CDT Impressions 01/07/2025 11:40 PM CDT IMPRESSION: Increased opacities in the lung bases probably represent atelectasis from central vascular congestion or pneumonia in appropriate clinical setting. Narrative 01/07/2025 11:40 PM CDT EXAM: XR CHEST PA OR AP 1 VW DATE/TIME OF EXAM: 01/07/2025 10:03 PM REASON FOR EXAM: COPD DIAGNOSIS: See Reason for Exam COMPARISON: Chest x-ray 01/04/2025 FINDINGS: - Lines/tubes: None. - Cardiomediastinal: Stable mildly prominent cardiac silhouette - Lungs/pleura: Enlarged pulmonary arteries. Increased opacity in the lung bases Hemidiaphragms are well visualized; no appreciable pleural effusion or pneumothorax. - Bones and soft tissues: No acute abnormalities. - Additional comments: None. Procedure Note Anu Mackay MD - 01/07/2025 EXAM: XR CHEST PA OR AP 1 VW DATE/TIME OF EXAM: 01/07/2025 10:03 PM REASON FOR EXAM: COPD DIAGNOSIS: See Reason for Exam COMPARISON: Chest x-ray 01/04/2025 FINDINGS: - Lines/tubes: None. - Cardiomediastinal: Stable mildly prominent cardiac silhouette - Lungs/pleura: Enlarged pulmonary arteries. Increased opacity in the lung bases Hemidiaphragms are well visualized; no appreciable pleural effusion or pneumothorax. - Bones and soft tissues: No acute abnormalities. - Additional comments: None. IMPRESSION: Increased opacities in the lung bases probably represent atelectasis from central vascular congestion or pneumonia in appropriate clinical setting. Pablo Kim McTeer HYDRODYNAMICIST DIAGNOSTIC IMAGING ORDE RABLES Final Result * EKG 12-LEAD (01/07/2025 9:56 PM CDT) 01/07/2025 9:56 PM CDT Narrative INTERFACE SYSTEM - 01/08/2025 12:52 [place] [address] Test Date: 2025-01-07 Pat Name: LE DIAZ Department: 11 Room: Gender: Female Pharmacy District Manager: [id number] : 1965 Requested By: Order Number: [id number] Reading MD: Echo Tapia Measurements Intervals [place] Rate: 108 P: 0 DE: 148 QRS: 46 QRSD: 86 T: 0 QT: 336 QTc: 450 Interpretive Statements Sinus tachycardia, possible ectopic rhythm Possible Inferior infarct, age undetermined Abnormal ECG Electronically Signed On 01-08-2025 12:52:50 CDT by Echo Tapia Procedure Note Provider, Historical - 01/08/2025 [place] [address] Test Date: 2025-01-07 Pat Name: LE DIAZ Department: 11 Room: Gender: Female Pharmacy District Manager: [id number] : 1965 Requested By: Order Number: [id number] Reading : Echo Tapia Measurements Intervals [place] Rate: 108 P: 0 DE: 148 QRS: 46 QRSD: 86 T: 0 QT: 336 QTc: 450 Interpretive Statements Sinus tachycardia, possible ectopic rhythm Possible Inferior infarct, age undetermined Abnormal ECG Electronically Signed On 01-08-2025 12:52:50 CDT by Echo Tapia us Pablo Kim McTeer HYDRODYNAMICIST ECG ORDERABLES Final R esult INTERFACE SYSTEM Refer to clinic/hospital department documented in this encounter Visit Diagnoses Diagnosis Chest pain, unspecified type Syncope and collapse Dyspnea, unspecified type Subtherapeutic international normalized ratio (INR) Abnormal coagulation profile Hyperglycemia Other abnormal glucose Acute exacerbation of chronic obstructive pulmonary disease ([facility]) Obstructive chronic bronchitis with exacerbation Benign hypertension Essential hypertension, benign Bipolar affective disorder ([facility]) Bipolar disorder, unspecified CAD (coronary atherosclerotic disease) Coronary atherosclerosis of unspecified type of vessel, [place] or graft Chest pain Chest pain, unspecified Chronic anticoagulation Encounter for long-term (current) use of anticoagulants Chronic pain syndrome Chronic respiratory failure with hypoxia, on home O2 therapy ([facility]) GERD (gastroesophageal reflux disease) Esophageal reflux History of pulmonary embolism Personal history of pulmonary embolism Mixed hyperlipidemia Neuropathy Mononeuritis of unspecified site Obesity (BMI 30-39.9) Obesity, unspecified Type 2 diabetes mellitus with hyperglycemia, with long-term current use of insulin Syncope and collapse Dyspnea Other dyspnea and respiratory abnormality Combined forms of age-related cataract of right eye Other and combined forms of senile cataract Right retinal detachment Unspecified retinal detachment documented in this encounter Administered Medications Inactive Administered Medications - up to 3 most recent administrations Medication Order MAR Action Action Date Dose Rate Site albuterol sulfate 90 mcg/Actuation inhaler 2 Puff 2 Puff, Inhalation, EVERY 4 HOURS PRN RESPIRATORY, Starting on 01/08/25 at 1907, Until 01/09/25 at 1430, Shortness of Breath, Wheezing, Routine amitriptyline (ELAVIL) tablet 25 mg 25 mg, Oral, DAILY, First dose on 01/08/25 at 0900, Until Discontinued, Routine, Previous Med: amitriptyline (ELAVIL) 25 mg tablet - Orig Sig - Take 25 mg by mouth daily. Given 01/09/2025 9:49 AM CDT 25 mg Given 01/08/2025 9:46 AM CDT 25 mg aspirin (CARTER CHEWABLE) chewable tablet 81 mg 81 mg, Oral, DAILY, First dose on 01/08/25 at 0900, Until Discontinued, Routine, Previous Med: aspirin (CARTER CHEWABLE) 81 mg Tablet, Chewable - Orig Sig - Take 81 mg by mouth daily. Given 01/09/2025 9:50 AM CDT 81 mg Given 01/08/2025 9:45 AM CDT 81 mg dextrose 5 % - sodium chloride 0.9 % infusion IV, at 40 mL/hr, SEE ADMIN INSTRUCTIONS, Starting on Thu01/08/25 at 0435, Until Thu01/09/25 at 1430, Routine dextrose 5 % in water 250 mL flush bag 25 mL 25 mL, IV, SEE ADMIN INSTRUCTIONS, Starting on 01/08/25 at 0436, Until Thu01/09/25 at 1430, Routine dextrose 50% (D50) syringe 12.5 Gram 12.5 Gram, IV, SEE ADMIN INSTRUCTIONS, Starting on Thu01/08/25 at 0435, Until Thu01/09/25 at 1430, Routine dextrose 50% (D50) syringe 25 Gram 25 Gram, IV, SEE ADMIN INSTRUCTIONS, Starting on Thu01/08/25 at 0435, Until Thu01/09/25 at 1430, Routine empagliflozin (JARDIANCE) tablet 10 mg 10 mg, Oral, DAILY EARLY, First dose on Thu01/09/25 at 0600, Until Discontinued, Routine, Previous Med: empagliflozin (JARDIANCE) 10 mg tablet - Orig Sig - Take 1 Tablet (10 mg) by mouth daily in the morning. , Indication: Heart Failure Given 01/09/2025 5:38 AM CDT 10 mg fluticasone furoate-vilanteroL (BREO ELLIPTA) 100-25 mcg/dose inhaler 1 Puff 1 Puff, Inhalation, DAILY RESPIRATORY, First dose on Thu01/09/25 at 0800, Until Discontinued, Routine Given 01/09/2025 7:54 AM CDT 1 Puff furosemide (LASIX) injection 40 mg 40 mg, IV, ONE TIME ONLY, 1 dose, On Thu01/08/25 at 1245, Routine Given 01/08/2025 2:04 PM CDT 40 mg furosemide (LASIX) injection 40 mg 40 mg, IV, ONE TIME ONLY, 1 dose, On Thu01/08/25 at 2100, Routine Given 01/08/2025 9:00 PM CDT 40 mg furosemide (LASIX) injection 60 mg 60 mg, IV, TWO TIMES DAILY, 7 HOURS APART, First dose on Thu01/09/25 at 0800, Until Discontinued, Routine furosemide (LASIX) tablet 80 mg 80 mg, Oral, TWO TIMES DAILY, First dose on Thu01/08/25 at 0900, Until Discontinued, Routine, Previous Med: furosemide (LASIX) 80 mg tablet - Orig Sig - Take 1 Tablet (80 mg) by mouth 2 times daily. Given 01/08/2025 9:44 AM CDT 80 mg glucagon HCL 1 mg/mL injection 1 mg 1 mg, IM, SEE ADMIN INSTRUCTIONS, Starting on 01/08/25 at 0435, Until 01/09/25 at 1430, Routine guaiFENesin (ROBITUSSIN) 100 mg/5 mL oral solution 200 mg 200 mg, Oral, EVERY 4 HOURS PRN, Starting on 01/08/25 at 0436, Until 01/09/25 at 1430, Other (See Comment), to thin secretions, Routine HYDROcodone-acetaminophen (NORCO) 7.5-325 mg per tablet 1 Tablet 1 Tablet, Oral, ONE TIME ONLY, 1 dose, On 01/07/25 at 2330, Routine Given 01/08/2025 12:18 AM CDT 1 Tablet HYDROcodone-acetaminophen (NORCO) 7.5-325 mg per tablet 1 Tablet 1 Tablet, Oral, EVERY 8 HOURS PRN, Starting on 01/08/25 at 0432, Until 01/08/25 at 1604, Pain, Moderate, Pain, Severe, Routine, Previous Med: HYDROcodone-acetaminophen (NORCO) 7.5-325 mg Tablet - Orig Sig - Take 1 Tablet by mouth every 8 hours as needed for Pain, Moderate or Pain, Severe. Given 01/08/2025 4:02 PM CDT 1 Tablet Given 01/08/2025 6:04 AM CDT 1 Tablet HYDROcodone-acetaminophen (NORCO) 7.5-325 mg per tablet 1 Tablet 1 Tablet, Oral, EVERY 6 HOURS PRN, Starting on 01/08/25 at 1604, Until 01/09/25 at 1430, Pain, Moderate, Pain, Severe, Routine, Previous Med: HYDROcodone-acetaminophen (NORCO) 7.5-325 mg Tablet - Orig Sig - Take 1 Tablet by mouth every 8 hours as needed for Pain, Moderate or Pain, Severe. Given 01/09/2025 9:49 AM CDT 1 Tablet Given 01/09/2025 3:09 AM CDT 1 Tablet Given 01/08/2025 9:00 PM CDT 1 Tablet HYDROmorphone (PF) (DILAUDID) injection 0.3 mg 0.3 mg, IV, ONE TIME ONLY, 1 dose, On 01/08/25 at 0115, Routine Given 01/08/2025 1:49 AM CDT 0.3 mg insulin glargine (LANTUS) injection 45 Units 45 Units, subCUT, TWO TIMES DAILY, First dose on 01/08/25 at 0900, Until Discontinued, Routine, Previous Med: insulin glargine-yfgn 100 unit/mL pen syringe - Orig Sig - Inject 45 Units by subcutaneous injection 2 times daily. Given 01/09/2025 7:58 AM CDT 45 Units Abdomen, Left Lower Quadrant Given 01/08/2025 8:54 PM CDT 45 Units Ab domen, Left Lower Quadrant Given 01/08/2025 9:47 AM CDT 45 Units Ar m, Right Upper insulin lispro (HumaLOG,ADMELOG) injection 0-14 Units 0-14 Units, subCUT, FOUR TIMES DAILY WITH MEALS AND AT BEDTIME, First dose on 01/08/25 at 1830, Until Discontinued, Routine Given 01/09/2025 7:55 AM CDT 11 Units Abdomen, Left Lower Quadrant insulin lispro (HumaLOG,ADMELOG) injection 0-6 Units 0-6 Units, subCUT, EVERY 4 HOURS, First dose on 01/08/25 at 0445, Until Discontinued, Routine Given 01/08/2025 4:59 PM CDT 6 Units Abdomen, Right Lower Quadrant Given 01/08/2025 11:06 AM CDT 6 Units A bdomen, Left Lower Quadrant Given 01/08/2025 7:43 AM CDT 6 Units Ar m, Left Upper insulin lispro (HumaLOG,ADMELOG) injection 10 Units 10 Units, subCUT, ONE TIME ONLY, 1 dose, On 01/08/25 at 2030, Routine Given 01/08/2025 8:53 PM CDT 10 Units Abdomen, Left Lower Quadrant insulin lispro (HumaLOG,ADMELOG) injection 14 Units 14 Units, subCUT, THREE TIMES DAILY WITH MEALS, First dose on 01/08/25 at 1245, Until Discontinued, Routine, Previous Med: insulin lispro (HumaLOG,ADMELOG) 100 unit/mL pen syringe - Orig Sig - Inject 14 Units by subcutaneous injection 3 times daily with meals. Given 01/09/2025 7:57 AM CDT 14 Units Abdomen, Left Lower Quadrant Given 01/08/2025 4:59 PM CDT 14 Units Ab domen, Right Lower Quadrant insulin regular (HumuLIN R,NovoLIN R) injection 10 Units 10 Units, IV, ONE TIME ONLY, 1 dose, On 01/08/25 at 1730, StatIndications:hyperkalemia Given 01/08/2025 6:57 PM CDT 10 Units iopamidoL (ISOVUE-300) 61% injection (drawn from multi-use bulk pack) 65 mL 65 mL, IV, INTRA-PROCEDURE ONCE, 1 dose, Starting on 01/08/25 at 0127, Until 01/08/25 at 0128, Routine Contrast Given 01/08/2025 1:28 AM CDT 65 mL ipratropium-albuteroL (DUONEB) 0.5 mg-3 mg(2.5 mg base)/3 mL inhalation solution 3 mL 3 mL, Inhalation, ONE TIME ONLY RESPIRATORY, 1 dose, On 01/07/25 at 2200, Routine Given 01/07/2025 10:10 PM CDT 3 mL ipratropium-albuteroL (DUONEB) 0.5 mg-3 mg(2.5 mg base)/3 mL inhalation solution 3 mL 3 mL, Inhalation, EVERY 6 HOURS PRN RESPIRATORY, Starting on 01/08/25 at 1400, Until 01/09/25 at 1430, Shortness of Breath, Wheezing, Routine isosorbide mononitrate (IMDUR) SR 24 hour tablet 30 mg 30 mg, Oral, DAILY, First dose on 01/08/25 at 0900, Until Discontinued, Routine, Previous Med: isosorbide mononitrate (IMDUR) 30 mg Extended Release 24 hour tablet - Orig Sig - TAKE 1 TABLET BY MOUTH EVERY DAY Given 01/09/2025 9:50 AM CDT 30 mg Given 01/08/2025 9:44 AM CDT 30 mg methylPREDNISolone sodium succinate (SOLU-Medrol) 125 mg in sterile water 2 mL injection 125 mg, IV, ONE TIME ONLY, 1 dose, On 01/08/25 at 0415, Routine Admin by Another Clinician (Comment) 01/08/2025 4:15 AM CDT 125 mg methylPREDNISolone sodium succinate (SOLU-Medrol) 40 mg in sterile water 1 mL injection 40 mg, IV, EVERY 8 HOURS, 3 doses, First dose on 01/08/25 at 1015, Last dose on Thu01/09/25 at 0215, Routine Given 01/08/2025 6:15 PM CDT 40 mg Given 01/08/2025 5:04 PM CDT 40 mg Given 01/08/2025 11:06 AM CDT 40 mg metoprolol succinate (TOPROL XL) SR 24 hour tablet 25 mg 25 mg, Oral, DAILY, First dose on 01/08/25 at 0900, Until Discontinued, Routine, Previous Med: metoprolol succinate (TOPROL XL) 25 mg Extended Release 24 hour tablet - Orig Sig - Take 1 Tablet (25 mg) by mouth daily. Given 01/09/2025 9:49 AM CDT 25 mg Given 01/08/2025 9:45 AM CDT 25 mg morphine 4 mg/mL injection 2 mg 2 mg, IV, ONE TIME ONLY, 1 dose, On 01/08/25 at 1245, Routine Given 01/08/2025 2:04 PM CDT 2 mg naloxone (NARCAN) 0.4 mg/mL injection 0.1-0.4 mg 0.1-0.4 mg, IV, SEE ADMIN INSTRUCTIONS, Starting on 01/08/25 at 0436, Until Thu01/09/25 at 1430, Routine OLANZapine (ZyPREXA) tablet 10 mg 10 mg, Oral, DAILY AT BEDTIME, First dose on 01/08/25 at 2100, Until Discontinued, Routine, Previous Med: OLANZapine (ZyPREXA) 10 mg tablet - Orig Sig - Take 10 mg by mouth daily at bedtime. Given 01/08/2025 8:55 PM CDT 10 mg pantoprazole (PROTONIX) tablet 40 mg 40 mg, Oral, DAILY BEFORE BREAKFAST, First dose on 01/08/25 at 0730, Until Discontinued, Routine, Previous Med: pantoprazole (PROTONIX) 40 mg Tablet, Delayed Release (E.C.) - Orig Sig - Take 1 Tablet (40 mg) by mouth daily before breakfast. , Indication: Gastroesophageal reflux disease (GERD) Given 01/08/2025 7:20 AM CDT 40 mg potassium CHLORIDE (KLOR-CON) SR tablet 40 mEq 40 mEq, Oral, ONE TIME ONLY, 1 dose, On 01/08/25 at 1800, Routine Given 01/08/2025 6:25 PM CDT 40 mEq rOPINIRole (REQUIP) tablet 0.5 mg 0.5 mg, Oral, DAILY AT BEDTIME, First dose on 01/08/25 at 2100, Until Discontinued, Routine, Previous Med: rOPINIRole (REQUIP) 0.5 mg tablet - Orig Sig - Take 0.5 mg by mouth daily at bedtime. Given 01/08/2025 8:59 PM CDT 0.5 mg sacubitriL-valsartan (ENTRESTO) 24-26 mg tablet 1 Tablet 1 Tablet, Oral, TWO TIMES DAILY, First dose on 01/08/25 at 0900, Until Discontinued, Routine, Previous Med: sacubitriL-valsartan (ENTRESTO) 24-26 mg Tablet - Orig Sig - Take 1 Tablet by mouth 2 times daily. Given 01/09/2025 9:49 AM CDT 1 Tablet Given 01/08/2025 9:00 PM CDT 1 Tablet Given 01/08/2025 9:44 AM CDT 1 Tablet sertraline (ZOLOFT) tablet 50 mg 50 mg, Oral, DAILY, First dose on 01/08/25 at 0900, Until Discontinued, Routine, Previous Med: sertraline (ZOLOFT) 50 mg tablet - Orig Sig - Take 50 mg by mouth daily. Given 01/09/2025 9:50 AM CDT 50 mg Given 01/08/2025 9:44 AM CDT 50 mg sodium chloride 0.9 % flush bag 25 mL 25 mL, IV, SEE ADMIN INSTRUCTIONS, Starting on 01/08/25 at 0436, Until 01/09/25 at 1430, Routine sodium chloride flush injection 10 mL 10 mL, IV, ONE TIME ONLY, 1 dose, On 01/08/25 at 0130, Routine Given 01/08/2025 1:28 AM CDT 10 mL sodium chloride flush injection 10 mL 10 mL, IV, EVERY 12 HOURS (BlD), First dose on 01/08/25 at 0900, Until Discontinued, Routine Given 01/08/2025 9:46 AM CDT 10 mL sodium chloride flush injection 10 mL 10 mL, IV, SEE ADMIN INSTRUCTIONS, Starting on 01/08/25 at 0436, Until Thu01/09/25 at 1430, Routine umeclidinium (INCRUSE ELLIPTA) 62.5 mcg/actuation inhaler 1 Puff 1 Puff, Inhalation, DAILY RESPIRATORY, First dose on Thu01/09/25 at 0800, Until Discontinued, Routine Given 01/09/2025 7:54 AM CDT 1 Puff warfarin (COUMADIN) tablet 20 mg 20 mg, Oral, ONE TIME ONLY, 1 dose, On 01/08/25 at 1600, Routine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 Scheduled Medication Order 01/07/2025 01/08/2025 01/09/2025 amitriptyline (ELAVIL) tablet 25 mg 25 mg, Oral, DAILY, First dose on 01/08/25 at 0900, Until Discontinued, Routine, Previous Med: amitriptyline (ELAVIL) 25 mg tablet - Orig Sig - Take 25 mg by mouth daily. 0946 (Given - Provider: Saleem Bronson RN) 0949 (Given - Provider: Jose Cole RN) aspirin (CARTER CHEWABLE) chewable tablet 81 mg 81 mg, Oral, DAILY, First dose on 01/08/25 at 0900, Until Discontinued, Routine, Previous Med: aspirin (CARTER CHEWABLE) 81 mg Tablet, Chewable - Orig Sig - Take 81 mg by mouth daily. 0945 (Given - Provider: Saleem Bronson RN) 0950 (Given - Provider: Jose Cole RN) atorvastatin (LIPITOR) tablet 40 mg 40 mg, Oral, DAILY AT BEDTIME, First dose on 01/08/25 at 2100, Until Discontinued, Routine, Previous Med: atorvastatin (LIPITOR) 40 mg tablet - Orig Sig - Take 40 mg by mouth daily at bedtime. 2100 (Refused - Provider: Rich Guzman RN) dextrose 5 % - sodium chloride 0.9 % infusion IV, at 40 mL/hr, SEE ADMIN INSTRUCTIONS, Starting on 01/08/25 at 0435, Until Thu01/09/25 at 1430, Routine dextrose 5 % in water 250 mL flush bag 25 mL 25 mL, IV, SEE ADMIN INSTRUCTIONS, Starting on Thu01/08/25 at 0436, Until Thu01/09/25 at 1430, Routine dextrose 50% (D50) syringe 12.5 Gram 12.5 Gram, IV, SEE ADMIN INSTRUCTIONS, Starting on Thu01/08/25 at 0435, Until Thu01/09/25 at 1430, Routine dextrose 50% (D50) syringe 25 Gram 25 Gram, IV, SEE ADMIN INSTRUCTIONS, Starting on Thu01/08/25 at 0435, Until Thu01/09/25 at 1430, Routine empagliflozin (JARDIANCE) tablet 10 mg 10 mg, Oral, DAILY EARLY, First dose on Thu01/09/25 at 0600, Until Discontinued, Routine, Previous Med: empagliflozin (JARDIANCE) 10 mg tablet - Orig Sig - Take 1 Tablet (10 mg) by mouth daily in the morning. , Indication: Heart Failure 0538 (Given - Provider: Rich Guzman RN) fluticasone furoate-vilanteroL (BREO ELLIPTA) 100-25 mcg/dose inhaler 1 Puff 1 Puff, Inhalation, DAILY RESPIRATORY, First dose on Thu01/09/25 at 0800, Until Discontinued, Routine 0754 (Given - Provider: Jose Cole RN) furosemide (LASIX) injection 40 mg (COMPLETED) 40 mg, IV, ONE TIME ONLY, 1 dose, On 01/08/25 at 1245, Routine 1404 (Given - Provider: Saleem Bronson RN) furosemide (LASIX) injection 40 mg (COMPLETED) 40 mg, IV, ONE TIME ONLY, 1 dose, On Thu01/08/25 at 2100, Routine 2100 (Given - Provider: Rich Guzman RN) furosemide (LASIX) injection 60 mg 60 mg, IV, TWO TIMES DAILY, 7 HOURS APART, First dose on Thu01/09/25 at 0800, Until Discontinued, Routine 0800 (Refused - Provider: Jose Cole RN) furosemide (LASIX) tablet 80 mg (CANCELED) 80 mg, Oral, TWO TIMES DAILY, First dose on Thu01/08/25 at 0900, Until Discontinued, Routine, Previous Med: furosemide (LASIX) 80 mg tablet - Orig Sig - Take 1 Tablet (80 mg) by mouth 2 times daily. 0944 (Given - Provider: Saleem Bronson, MARICARMEN) glucagon HCL 1 mg/mL injection 1 mg 1 mg, IM, SEE ADMIN INSTRUCTIONS, Starting on 01/08/25 at 0435, Until 01/09/25 at 1430, Routine HYDROcodone-acetaminophen (NORCO) 7.5-325 mg per tablet 1 Tablet (COMPLETED) 1 Tablet, Oral, ONE TIME ONLY, 1 dose, On 01/07/25 at 2330, Routine 0018 (Given - Provider: Giovani Multani, MARICARMEN) HYDROmorphone (PF) (DILAUDID) injection 0.3 mg (COMPLETED) 0.3 mg, IV, ONE TIME ONLY, 1 dose, On 01/08/25 at 0115, Routine 0149 (Given - Provider: Luna Fontanez RN) insulin glargine (LANTUS) injection 45 Units 45 Units, subCUT, TWO TIMES DAILY, First dose on 01/08/25 at 0900, Until Discontinued, Routine, Previous Med: insulin glargine-yfgn 100 unit/mL pen syringe - Orig Sig - Inject 45 Units by subcutaneous injection 2 times daily. 0947 (Given - Provider: Saleem Bronson RN)2053 (Given - Provider: Rich Guzman RN) 0758 (Given - Provider: Jose Cole, MARICARMEN) insulin lispro (HumaLOG,ADMELOG) injection 0-14 Units 0-14 Units, subCUT, FOUR TIMES DAILY WITH MEALS AND AT BEDTIME, First dose on 01/08/25 at 1830, Until Discontinued, Routine 1830 (Not Given - Provider: Saleem Bronson RN - Reason: Other - See Comment)2100 (Not Given - Provider: Rich Guzman RN - Reason: Clarify-Other (Comment) - Comment: provider) 0755 (Given - Provider: Jose Cole RN)1200 (Due) insulin lispro (HumaLOG,ADMELOG) injection 0-6 Units (CANCELED) 0-6 Units, subCUT, EVERY 4 HOURS, First dose on 01/08/25 at 0445, Until Discontinued, Routine 0445 (Refused - Provider: Rich Guzman RN)0743 (Given - Provider: Saleem Bronson RN)1106 (Given - Provider: Saleem Bronson RN)1659 (Given - Provider: Saleem Bronson RN) insulin lispro (HumaLOG,ADMELOG) injection 10 Units (COMPLETED) 10 Units, subCUT, ONE TIME ONLY, 1 dose, On 01/08/25 at 2030, Routine 2053 (Given - Provider: Rich Guzman RN) insulin lispro (HumaLOG,ADMELOG) injection 14 Units 14 Units, subCUT, THREE TIMES DAILY WITH MEALS, First dose on 01/08/25 at 1245, Until Discontinued, Routine, Previous Med: insulin lispro (HumaLOG,ADMELOG) 100 unit/mL pen syringe - Orig Sig - Inject 14 Units by subcutaneous injection 3 times daily with meals. 1245 (Not Given - Provider: Saleem Bronson RN - Reason: Other - See Comment)1659 (Given - Provider: Saleem Bronson RN) 0757 (Given - Provider: Jose oCle RN)1200 (Due) insulin regular (HumuLIN R,NovoLIN R) injection 10 Units (COMPLETED) 10 Units, IV, ONE TIME ONLY, 1 dose, On 01/08/25 at 1730, Stat 1857 (Given - Provider: Rich Guzman RN) iopamidoL (ISOVUE-300) 61% injection (drawn from multi-use bulk pack) 65 mL (COMPLETED) 65 mL, IV, INTRA-PROCEDURE ONCE, 1 dose, Starting on 01/08/25 at 0127, Until 01/08/25 at 0128, Routine 0128 (Contrast Given - Provider: Alexei Gilmore, RT) ipratropium-albuteroL (DUONEB) 0.5 mg-3 mg(2.5 mg base)/3 mL inhalation solution 3 mL (COMPLETED) 3 mL, Inhalation, ONE TIME ONLY RESPIRATORY, 1 dose, On 01/07/25 at 2200, Routine 2210 (Given - Provider: Evelyn López RCP) isosorbide mononitrate (IMDUR) SR 24 hour tablet 30 mg 30 mg, Oral, DAILY, First dose on 01/08/25 at 0900, Until Discontinued, Routine, Previous Med: isosorbide mononitrate (IMDUR) 30 mg Extended Release 24 hour tablet - Orig Sig - TAKE 1 TABLET BY MOUTH EVERY DAY 0944 (Given - Provider: Saleem Bronson RN) 0950 (Given - Provider: Jose Cole, MARICARMEN) methylPREDNISolone sodium succinate (SOLU-Medrol) 125 mg in sterile water 2 mL injection (COMPLETED) 125 mg, IV, ONE TIME ONLY, 1 dose, On 01/08/25 at 0415, Routine 0415 (Admin by Another Clinician (Comment) - Provider: Scooby Arellano RN) methylPREDNISolone sodium succinate (SOLU-Medrol) 40 mg in sterile water 1 mL injection (COMPLETED) 40 mg, IV, EVERY 8 HOURS, 3 doses, First dose on 01/08/25 at 1015, Last dose on 01/09/25 at 0215, Routine 1106 (Given - Provider: Saleem Bronson RN)1704 (Given - Provider: Saleem Bronson RN)1815 (Given - Provider: Saleem Bronson RN) 0215 (Canceled Entry - Provider: Rich Guzman RN) metoprolol succinate (TOPROL XL) SR 24 hour tablet 25 mg 25 mg, Oral, DAILY, First dose on 01/08/25 at 0900, Until Discontinued, Routine, Previous Med: metoprolol succinate (TOPROL XL) 25 mg Extended Release 24 hour tablet - Orig Sig - Take 1 Tablet (25 mg) by mouth daily. 0945 (Given - Provider: Saleem Bronson RN) 0949 (Given - Provider: Jose Cole, MARICARMEN) morphine 4 mg/mL injection 2 mg (COMPLETED) 2 mg, IV, ONE TIME ONLY, 1 dose, On 01/08/25 at 1245, Routine 1404 (Given - Provider: Saleem Bronson RN) naloxone (NARCAN) 0.4 mg/mL injection 0.1-0.4 mg 0.1-0.4 mg, IV, SEE ADMIN INSTRUCTIONS, Starting on 01/08/25 at 0436, Until 01/09/25 at 1430, Routine OLANZapine (ZyPREXA) tablet 10 mg 10 mg, Oral, DAILY AT BEDTIME, First dose on 01/08/25 at 2100, Until Discontinued, Routine, Previous Med: OLANZapine (ZyPREXA) 10 mg tablet - Orig Sig - Take 10 mg by mouth daily at bedtime. 2054 (Given - Provider: Rich Guzman RN) pantoprazole (PROTONIX) tablet 40 mg 40 mg, Oral, DAILY BEFORE BREAKFAST, First dose on 01/08/25 at 0730, Until Discontinued, Routine, Previous Med: pantoprazole (PROTONIX) 40 mg Tablet, Delayed Release (E.C.) - Orig Sig - Take 1 Tablet (40 mg) by mouth daily before breakfast. , Indication: Gastroesophageal reflux disease (GERD) 719 (Given - Provider: Saleem Bronson RN) 07 (Refused - Provider: Jose Cole RN) potassium CHLORIDE (KLOR-CON) SR tablet 40 mEq (COMPLETED) 40 mEq, Oral, ONE TIME ONLY, 1 dose, On 01/08/25 at 1800, Routine 1824 (Given - Provider: Saleem Bronson RN) rOPINIRole (REQUIP) tablet 0.5 mg 0.5 mg, Oral, DAILY AT BEDTIME, First dose on 01/08/25 at 2100, Until Discontinued, Routine, Previous Med: rOPINIRole (REQUIP) 0.5 mg tablet - Orig Sig - Take 0.5 mg by mouth daily at bedtime. 2058 (Given - Provider: Rich Guzman RN) sacubitriL-valsartan (ENTRESTO) 24-26 mg tablet 1 Tablet 1 Tablet, Oral, TWO TIMES DAILY, First dose on 01/08/25 at 0900, Until Discontinued, Routine, Previous Med: sacubitriL-valsartan (ENTRESTO) 24-26 mg Tablet - Orig Sig - Take 1 Tablet by mouth 2 times daily. 0944 (Given - Provider: Saleem Bronson RN)2100 (Given - Provider: Rich Guzman RN) 0949 (Given - Provider: Jose Cole RN) sertraline (ZOLOFT) tablet 50 mg 50 mg, Oral, DAILY, First dose on 01/08/25 at 0900, Until Discontinued, Routine, Previous Med: sertraline (ZOLOFT) 50 mg tablet - Orig Sig - Take 50 mg by mouth daily. 0944 (Given - Provider: Saleem Bronson RN) 0950 (Given - Provider: Jose oCle RN) sodium chloride 0.9 % flush bag 25 mL 25 mL, IV, SEE ADMIN INSTRUCTIONS, Starting on 01/08/25 at 0436, Until Thu01/09/25 at 1430, Routine sodium chloride flush injection 10 mL (COMPLETED) 10 mL, IV, ONE TIME ONLY, 1 dose, On 01/08/25 at 0130, Routine 0128 (Given - Provider: Alexei Gilmore, RT) sodium chloride flush injection 10 mL 10 mL, IV, EVERY 12 HOURS (BlD), First dose on 01/08/25 at 0900, Until Discontinued, Routine 0946 (Given - Provider: Saleem Bronson, MARICARMEN)2100 (Canceled Entry - Provider: Rich Guzman RN) 0900 (Refused - Provider: Jose Cole RN) sodium chloride flush injection 10 mL 10 mL, IV, SEE ADMIN INSTRUCTIONS, Starting on 01/08/25 at 0436, Until Thu01/09/25 at 1430, Routine umeclidinium (INCRUSE ELLIPTA) 62.5 mcg/actuation inhaler 1 Puff 1 Puff, Inhalation, DAILY RESPIRATORY, First dose on Thu01/09/25 at 0800, Until Discontinued, Routine 0754 (Given - Provider: Jose Cole RN) warfarin (COUMADIN) tablet 10 mg 10 mg, Oral, DAILY LATE, First dose on Thu01/09/25 at 1600, Until Discontinued, Routine, Previous Med: warfarin (COUMADIN) 10 mg tablet - Orig Sig - Take 10 mg by mouth. 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 albuterol sulfate 90 mcg/Actuation inhaler 2 Puff 2 Puff, Inhalation, EVERY 4 HOURS PRN RESPIRATORY, Starting on 01/08/25 at 1907, Until 01/09/25 at 1430, Shortness of Breath, Wheezing, Routine guaiFENesin (ROBITUSSIN) 100 mg/5 mL oral solution 200 mg 200 mg, Oral, EVERY 4 HOURS PRN, Starting on 01/08/25 at 0436, Until 01/09/25 at 1430, Other (See Comment), to thin secretions, Routine HYDROcodone-acetaminophen (NORCO) 7.5-325 mg per tablet 1 Tablet (CANCELED) 1 Tablet, Oral, EVERY 8 HOURS PRN, Starting on 01/08/25 at 0432, Until 01/08/25 at 1604, Pain, Moderate, Pain, Severe, Routine, Previous Med: HYDROcodone-acetaminophen (NORCO) 7.5-325 mg Tablet - Orig Sig - Take 1 Tablet by mouth every 8 hours as needed for Pain, Moderate or Pain, Severe. 0604 (Given - Provider: Rich Guzman RN)1602 (Given - Provider: Saleem Bronson RN) HYDROcodone-acetaminophen (NORCO) 7.5-325 mg per tablet 1 Tablet 1 Tablet, Oral, EVERY 6 HOURS PRN, Starting on 01/08/25 at 1604, Until 01/09/25 at 1430, Pain, Moderate, Pain, Severe, Routine, Previous Med: HYDROcodone-acetaminophen (NORCO) 7.5-325 mg Tablet - Orig Sig - Take 1 Tablet by mouth every 8 hours as needed for Pain, Moderate or Pain, Severe. 2100 (Given - Provider: Rich Guzman RN) 0309 (Given - Provider: Rich Guzman RN)0949 (Given - Provider: Jose Cole RN) ipratropium-albuteroL (DUONEB) 0.5 mg-3 mg(2.5 mg base)/3 mL inhalation solution 3 mL(Linked Group 1) 3 mL, Inhalation, EVERY 6 HOURS PRN RESPIRATORY, Starting on 01/08/25 at 1400, Until 01/09/25 at 1430, Shortness of Breath, Wheezing, Routine nitroglycerin (NITROSTAT) tablet 0.4 mg 0.4 mg, Sublingual, EVERY 5 MINUTES PRN, Starting on 01/08/25 at 0432, Until 01/09/25 at 1431, Chest Pain, Routine, Previous Med: nitroglycerin (NITROSTAT) 0.4 mg Tablet, Sublingual - Orig Sig - Place 0.4 mg under tongue. Linked Groups Order Group 1: ipratropium-albuteroL (DUONEB) 0.5 mg-3 mg(2.5 mg base)/3 mL inhalation solution 3 mLJump to med 3 mL, Inhalation, EVERY 6 HOURS PRN RESPIRATORY, Starting on 01/08/25 at 1400, Until 01/09/25 at 1430, Shortness of Breath, Wheezing, Routine And albuterol (PROVENTIL,VENTOLIN) 2.5 mg /3 mL (0.083 %) inhalation solution 2.5 mg (CANCELED) 2.5 mg, Inhalation, EVERY 6 HOURS PRN RESPIRATORY, Starting on 01/08/25 at 1356, Until 01/08/25 at 1907, Shortness of Breath, Wheezing, Routine documented in this encounter Additional Health Concerns Active Problems Noted Date Diagnosed Date Heart Failure Problem 05/12/2024 Infection Onset Date Last Indicated Resolved Time R/O Respiratory 01/07/2025 01/07/2025 01/08/2025 5 :44 AM CDT documented as of this encounter Care Teams Senior Sales Operations Manager Relationship Specialty Start Date End Date Delta Wade MD [id number] [id number] PCP - General Family Practice 03/25/24 documented as of this encounter
--- OUTSIDE RECORDS SUMMARY | 2025-01-11 17:53 | XMS_ITS | Encounter Summary ---
Author Organization [facility] Address [address] [place] [address] Care Team Providers Care Clinical Lab Technologist Name Role Phone Delta Wade MD Primary Care Provider [phone] Reason for Visit * Reason Comments Shortness of Breath Patient states she i s having shortness of breath that started about an hour ago. Patients spO2 at triage desk is 87 on 4L NC. * Auth/Cert (Routine) Specialty Diagnoses / Procedures Referred By Marcelle smith Referred To Contact Emergency Medicine [facility] Emergency Department [address] [place] [address] Phone: tel: fax: Referral ID Status Reason Start Date Expiration Date Visits Re quested Visits Authorized [id number] 1 1 Encounter Details Date Type Department Care Team (Late st Contact Info) Description 01/11/2025 5:53 PM CDT - 01/11/2025 9:31 PM CDT Emergency [facility] Emergency Department [address] [place] [phone] Aki Briceno, [address] [place] [address] COPD with exacerbation (CMS/HCC) (Primary [...] How often do you attend chur or yarsani services? More than 4 times per year [...] you can t pay for food? No 01/11/2025 Transportation Needs Answer Date Record ed Have you gone without health care because you didn t have a way to get there? Or worry about transportation for future doctor visits, cloth picker medication, etc.? No 2024 Housing Stability Answer Date Recorded Do you worry you won t have a steady place to sleep or struggle to pay rent or mortgage? No 01/11/2025 Utility Needs Answer Date Recorded Do you have difficulty payin g for utility costs (electric, water or gas bills)? No 01/11/2025 Medication Needs Answer Date Recorded Have you skipped taking medi cation due to cost or worry you can t afford new medications? Prefer not to answer 01/07/2025 Feeling Safe Answer Date Recorded Are you in a relationship wi th someone who hurts you emotionally and/or physically? No 01/11/2025 Food Insecurity Answer Date Recorded Patient needs follow up regardin 11/29/2024 Transportation Needs Answer Date Record ed Patient needs follow up regardin 11/24/2024 Housing Stability Answer Date Recorded Social/Environmental Concerns No concerns Utility Needs Answer Date Recorded Patient needs follow up regardin 11/29/2024 Comments No Sex and Gender Information Value Date Recorded Sex Assigned at Not on file Legal Sex Female 11:49 PM COAL CUTTING MACHINE OPERATOR Gender Identity Not on file Sexual Orientation Not on file documented as of this encounter Last Filed Vital Signs Vital Sign Reading Time Taken Comments Blood Pressure 134/82 01/11/2025 9:29 PM CDT Pulse 102 01/11/2025 9:29 PM CDT Temperature 36.9 C (98.4 F) 01/11/2025 5:36 PM CDT Respiratory Rate 22 01/11/2025 9:29 PM CDT Oxygen Saturation 94% 01/11/2025 9:29 PM CDT Inhaled Oxygen Concentration - - Weight 90.7 kg (200 lb) 01/11/2025 5:36 PM CDT Height 162.6 cm (5' 4 ) 01/11/2025 5:36 PM CDT Body Mass Index 34.33 01/11/2025 5:36 PM CDT documented in this encounter Discharge Instructions * Attachments The following attachments cannot be sent through Care Everywhere. * COPD (Citizen Of [place]) documented in [...] 1 Each 4 naloxone (NARCAN) 4 mg/spray Gunpowder, Non-Aerosol EMERGENCY USE ONLY: Administer 1 spray [...] as of this encounter ED Notes * Kristie Ge RN - 01/11/2025 7:23 PM CDT Assumed care from Dolores HERNADEZ. * Dedra Galan RN - 01/11/2025 7:21 PM CDT Report given to Kristie HERNADEZ to assume care at this time. * Germaine Araiza RN - 01/11/2025 7:20 PM CDT Pt extremely restless, c/o pain 10/10 +, family at bedside, O2, in 1 nostril, IV partially dislodged. Re secured saline lock, flushes easily, patient repositioned, secured monitors. Bed in low position, monitors attached, medications given per orders. Pt verbalizes relief. * Dedra Galan RN - 01/11/2025 6:44 PM CDT Pt brought to restroom by wheelchair, placed back on monitoring equipment. Family at bedside. * Germaine Araiza RN - 01/11/2025 6:15 PM CDT Pt roomed to ED Rm#15 room triage, at 1755 care assumed from triage. This promotion writer agrees with previous assessment. Pt reporting pain in rib cage and asking provider for pain medications. Pt stating she does not want to have blood drawn because she is such a hard stick. * Joan Pitts, Nurse Set And Exhibit Designer - 01/11/2025 5:50 PM CDT Triage Protocol EKG [facility] EKG obtained in triage and reviewed by: Dr. Briceno at Time: 1757 Patient will: Remain in the waiting room under the triage protocol and will be roomed per usual triage process. Primary triage nurse Adelaida notified. * Jagjit Pruitt PA - 01/11/2025 5:38 PM CDT Patient is a 59-year-old female presents to the ED with increased chest pain and shortness of breath. She wears 3 to 4 L nasal cannula at baseline due to COPD. Has had increased coughing. No fever. Pain of 10 out of 10 Vitals: Vitals: 01/11/25 1736 BP: (!) 163/146 Resp: 28 Temp: 98.4 ??F (36.9 ??C) SpO2: 93% Exam: Constitutional: Alert and oriented with no [...] during their stay. documented in this encounter Miscellaneous Notes * ED Bed Hold Comment Note - Marcia Jennings RN - 01/11/2025 5:53 PM CDT Bed: 15 Expected date: 01/11/25 Expected time: Means of arrival: Comments: triage documented in this encounter Plan of Treatment Upcoming Encounters Date Type Department Care Team (Latest Contact Info) Description 01/25/2025 12:00 PM COAL CUTTING MACHINE OPERATOR Hospital Encounter [place] [address] [phone] Kumar Ochoa MD [address] [address] Combined forms of age-related cataract of right eye 01/25/2025 1:00 PM COAL CUTTING MACHINE OPERATOR - 01/25/2025 2:13 PM COAL CUTTING MACHINE OPERATOR Surgery [place] [address] [place] [phone] Kumar Ochoa MD [address] [address] CATARACT EXTRACTION IOL INSERTION FEMTO LASER ASSISTED LEVEL 1 01/26/2025 8:30 AM COAL CUTTING MACHINE OPERATOR Office Visit [facility] [place] [address] [place] [phone] Eduardo Craven MD [address] [place] [address] 02/01/2025 9:00 AM COAL CUTTING MACHINE OPERATOR Office Visit [facility] [place] [address] [address] Paul Bustillos, OD [address] [place] [phone] 02/14/2025 3:00 PM COAL CUTTING MACHINE OPERATOR Office Visit [facility] Pulmon[facility] [address] [place] [phone] Angeli Miles MD [address] [place] [phone] Scheduled Procedures Name Priority Associated Diagnoses Date/Ti me CATARACT EXTRACTION IOL INSERTION FEMTO LASER ASSISTED LEVEL 1 Combined forms of age-related cataract of right eye Right retinal detachment 01/25/2025 1:00 PM COAL CUTTING MACHINE OPERATOR PARS PLANA VITRECTOMY WITH LASER Combined forms of age-related cataract of right eye Right retinal detachment 01/25/2025 1:00 PM COAL CUTTING MACHINE OPERATOR EYE PLACEMENT OF SILICONE OIL Combined forms of age-related cataract of right eye Right retinal detachment 01/25/2025 1:00 PM COAL CUTTING MACHINE OPERATOR documented as of this encounter Goals Goal Patient Goal Type Associated Problems Recent Progress Patient-Stated? Author Heart Failure Goal Care Plan Heart Failure Problem No Latonya Anguiano LPN documented as of this encounter Procedures Procedure Name Priority Date/Time Associated Diagnosis Comments TROPONIN BASELINE, 5TH GEN Stat 01/11/2025 6:21 PM CDT CBC WITH DIFFERENTIAL Stat 01/11/2025 6:21 PM CDT PROTIME-INR Stat 01/11/2025 6:21 PM CDT BRAIN NATRIURETIC PEPTIDE, BNP OR PROBNP Stat 01/11/2025 6:21 PM CDT COMPREHENSIVE METABOLIC PANEL Stat 01/11/2025 6:21 PM CDT XR CHEST PA OR AP 1 VW Stat 6:03 PM CDT EKG 12-LEAD Stat 01/11/2025 5:45 PM CDT documented in this encounter Results * (ABNORMAL) PROTIME-INR (01/11/2025 6:21 PM CDT) PROTIME 17.1(H) 12.7 - 14.9 Seconds 01/11/2025 7:02 PM CDT [facility] INR 1.3(H) 0.8 - 1.2 01/11/2025 7:02 PM CDT [facility] Blood Venipuncture / Unknown 01/11/2025 6:21 PM CDT 01/11/2025 6:43 PM CDT Narrative [facility] - 01/11/2025 7:02 PM CDT Expected Values for INR: DVT/PE Goal INR 2.5; range 2.0 - 3.0 Valve Replacement Tissue Goal INR 2.5; range 2.0 - 3.0 Valve Replacement Mechanical Goal INR 3.0; range 2.5 - 3.5 POST-MO Goal INR 2.5; range 2.0 - 3.0 or Goal INR 3.0; range 2.5 - 3.5 Atrial Fibrillation Goal INR 2.5; range 2.0 - 3.0 Ischemic Stroke Goal INR 2.5; range 2.0 - 3.0 us Aki Briceno DO HEMATOLOGY ORDERABLES Final R esult [facility] [employer] CLIA # [id number] [id number] [place] [address] * (ABNORMAL) TROPONIN BASELINE, 5TH GEN (01/11/2025 6:21 PM CDT) TROPONIN T, BASELINE 5TH GEN 25(H) <=10 ng/L 01/11/2025 7:17 PM CDT [facility] Blood Venipuncture / Unknown 01/11/2025 6:21 PM CDT 01/11/2025 6:43 PM CDT Narrative [facility] - 01/11/2025 7:17 PM CDT Troponin elevated. Jagjit MCNAMARA CHEMISTRY ORDERABLES Final Result Performing Organization Address City/State/[facility] Co de Phone Number [facility] CLIA # [id number] [address] [address] * (ABNORMAL) BRAIN NATRIURETIC PEPTIDE, BNP OR PROBNP (01/11/2025 6:21 PM CDT) Pathologist [facility] PROBNP, N TERMINAL 597(H) 0 - 125 pg/mL 01/11/2025 7:28 PM CDT [facility] Comment: INTERPRETIVE COMMENT based on diagnosis: Diagnostic [...] years: >1800 pg/mL Blood Venipuncture / Unknown 01/11/2025 6:21 PM CDT 01/11/2025 6:43 PM CDT us Jagjit MCNAMARA CHEMISTRY ORDERABLES Final Result [facility] YAKELIN # [id number] [address] [facility] [place] [address] * (ABNORMAL) COMPREHENSIVE METABOLIC PANEL (01/11/2025 6:21 PM CDT) Pathologist [facility] SODIUM 138 136 - 145 mmol/L 01/11/2025 7:28 PM CDT [facility] POTASSIUM 3.6 3.5 - 5.1 mmol/L 01/11/2025 7:28 PM CDT [facility] CHLORIDE 100 98 - 107 mmol/L 01/11/2025 7:28 PM CDT [facility] CO2 23 22 - 29 mmol/L 01/11/2025 7:28 PM CDT [facility] CALCIUM 10.0 8.6 - 10.0 mg/dL 01/11/2025 7:28 PM CDT [facility] BUN 14 6 - 20 mg/dL 01/11/2025 7:28 PM CDT [facility] CREATININE 0.50(L) 0.51 - 0.95 mg/dL 01/11/2025 7:28 PM CDT [facility] GLUCOSE 378(H) 74 - 99 mg/dL 01/11/2025 7:28 PM CDT [facility] TOTAL PROTEIN 7.1 6.4 - 8.3 g/dL 01/11/2025 7:28 PM T [facility] ALBUMIN 3.8 3.5 - 5.2 g/dL 01/11/2025 7:28 PM T [facility] BILIRUBIN TOTAL 0.2 0.0 - 1.0 mg/dL 01/11/2025 7:28 PM CDT [facility] ALKALINE PHOSPHATASE 163(H) 35 - 104 U/L 01/11/2025 7:28 PM T [facility] AST 23 10 - 35 U/L 01/11/2025 7:28 PM CDT [facility] Comment:Hemolysis present. R esult may be falsely elevated. ALT 24 <=35 U/L 01/11/2025 7:28 PM CDT [facility] GFR >60 >=60 mL/min/1. 73 sq meter 01/11/2025 7:28 PM CDT [facility] Comment:eGFR calculated with 2020 CKD-EPI equation. Vegetarian diet, extremely high or low muscle mass, and may affect results. Cystatin C with Glomerular Filtration Rate is a suitable alternative for these patients. ANION GAP 15 9 - 20 mmol/L 01/11/2025 7:28 PM CDT [facility] Blood Venipuncture / Unknown 01/11/2025 6:21 PM CDT 01/11/2025 6:43 PM CDT Jagjit MCNAMARA CHEMISTRY ORDERABLES Final Result [facility] CLIA # [id number] [address] [place] [phone] * (ABNORMAL) CBC WITH DIFFERENTIAL (01/11/2025 6:21 PM CDT) [facility] WBC 7.2 4.8 - 10.8 K/uL 01/11/2025 6:53 PM CDT [facility] NRBCS 1(H) <1 % 01/11/2025 6:53 PM CDT [facility] RBC 4.06(L) 4.20 - 5.40 M/uL 01/11/2025 6:53 PM CDT [facility] HEMOGLOBIN 11.7(L) 12.0 - 16.0 g/dL 01/11/2025 6:53 PM CDT [facility] HEMATOCRIT 38.4 36.0 - 46.0 % 01/11/2025 6:53 PM CDT [facility] MCV 94.6 84.0 - 103.0 fL 01/11/2025 6:53 PM CDT [facility] [employer] [facility] MCH 28.8 27.0 - 34.0 pg 01/11/2025 6:53 PM CDT [facility] MCHC 30.5 30.0 - 35.0 g/dL 01/11/2025 6:53 PM CDT [facility] [employer] [facility] PLATELETS 212 140 - 440 K/uL 01/11/2025 6:53 PM [facility] MPV 11.0 8.9 - 12.8 fL 01/11/2025 6:53 PM CDT [facility] [employer] [facility] RDW 18.6(H) 11.0 - 14.5 % 01/11/2025 6:53 PM [facility] [employer] [facility] RDW-STDEV 65.1(H) 37.0 - 54.0 fL 01/11/2025 6:53 PM CDT [facility] NEUTROPHILS 55 42 - 75 % 01/11/2025 6:53 PM [facility] 29 24 - 44 % 01/11/2025 6:53 PM [facility] [employer] MONOCYTES 13(H) 2 - 10 % 01/11/2025 6:53 PM [facility] [employer] [facility] EOSINOPHILS 1 0 - 7 % 01/11/2025 6:53 PM [facility] BASOPHILS 1 0 - 1 % 01/11/2025 6:53 PM [facility] IMMATURE GRANULOCYTES 2 0 - 2 % 01/11/2025 6:53 PM [facility] NEUTROPHIL ABSOLUTE 3.98 2.00 - 8.00 K/uL 01/11/2025 6:53 PM [facility] LYMPHOCYTE ABSOLUTE 2.07 1.20 - 4.00 K/uL 01/11/2025 6:53 PM [facility] MONOCYTE ABSOLUTE 0.93(H) 0.10 - 0.60 K/uL 01/11/2025 6:53 PM CDT [facility] EOSINOPHIL ABSOLUTE 0.06 0.00 - 0.70 K/uL 01/11/2025 6:53 PM CDT [facility] BASOPHILS ABSOLUTE 0.04 0.00 - 0.20 K/uL 01/11/2025 6:53 PM CDT [facility] IMMATURE GRANULOCYTES ABSOLUTE 0.11(H) 0.00 - 0.10 K/uL 01/11/2025 6:53 PM CDT [facility] SMEAR REVIEWED: NA - Not Applicable 01/11/2025 6:53 PM CDT [facility] Blood Venipuncture / Unknown 01/11/2025 6:21 PM CDT 01/11/2025 6:43 PM CDT Jagjit MCNAMARA HEMATOLOGY ORDERABLES Final Result [facility] CLIA # [id number] [facility] [address] [place] [address] * XR CHEST PA OR AP 1 VW (01/11/2025 6:03 PM CDT) Anatomical Region Laterality Modality Chest Computed Radiogr aphy 01/11/2025 6:03 PM CDT Narrative 01/11/2025 6:24 PM CDT XR CHEST PA OR AP 1 VW Reason For Exam: Shortness of Breath SOB. Diagnosis: See Reason for Exam. COMPARISON: None FINDINGS: Mild central vascular congestion. Cardiomediastinal silhouette is within normal limits. No focal consolidation, large pleural effusion, or pneumothorax is seen. No acute osseous abnormality is appreciated. Procedure Note Curly Thomas MD - 01/11/2025 XR CHEST PA OR AP 1 VW Reason For Exam: Shortness of Breath SOB. Diagnosis: See Reason for Exam. COMPARISON: None FINDINGS: Mild central vascular congestion. Cardiomediastinal silhouette is within normal limits. No focal consolidation, large pleural effusion, or pneumothorax is seen. No acute osseous abnormality is appreciated. us Jagjit MCNAMARA DIAGNOSTIC IMAGING ORDERABL ES Final Result * EKG 12-LEAD (01/11/2025 5:45 PM CDT) 01/11/2025 5:45 PM CDT Narrative INTERFACE SYSTEM - 01/12/2025 4:03 PM [address] [address] Test Date: 2025-01-11 Pat Name: LE DIAZ Department: 11 Room: Gender: Female Set And Exhibit Designer: [id number] : 1965 Requested By: Order Number: [id number] Reading MD: Mana Moore Measurements Intervals [place] Rate: 115 P: 0 SD: 146 QRS: 32 QRSD: 82 T: -8 QT: 340 QTc: 470 Interpretive Statements Sinus tachycardia Possible Inferior infarct, age undetermined Abnormal ECG Electronically Signed On 01-12-2025 16:03:55 CDT by Mana Moore Procedure Note Mana Moore MD - 01/12/[address] [address] Test Date: 2025-01-11 Pat Name: LE DIAZ Department: 11 Room: Gender: Female Set And Exhibit Designer: [id number] : 1965 Requested By: Order Number: [id number] Reading MD: Mana Moore Measurements Intervals [place] Rate: 115 P: 0 SD: 146 QRS: 32 QRSD: 82 T: -8 QT: 340 QTc: 470 Interpretive Statements Sinus tachycardia Possible Inferior infarct, age undetermined Abnormal ECG Electronically Signed On 01-12-2025 16:03:55 CDT by Mana Moore us Jagjit MCNAMARA ECG ORDERABLES Final Resul t INTERFACE SYSTEM Refer to clinic/hospital department documented in this encounter Visit Diagnoses Diagnosis COPD with exacerbation (CMS/HCC)- Primary Obstructive chronic bronchitis with exacerbation Combined forms of age-related cataract of right eye Other and combined forms of senile cataract Right retinal detachment Unspecified retinal detachment documented in this encounter Administered Medications Inactive Administered Medications - up to 3 most recent administrations Medication Order MAR Action Action Date Dose Rate Site dexAMETHasone (DECADRON) injection 10 mg 10 mg, IV, ONE TIME ONLY, 1 dose, On Thu01/11/25 at 2030, Routine Given 01/11/2025 9:10 PM CDT 10 mg fentaNYL (PF) (SUBLIMAZE) 50 mcg/mL injection 50 mcg 50 mcg, IV, ONE TIME ONLY, 1 dose, On Thu01/11/25 at 1915, Routine Given 01/11/2025 7:22 PM CDT 50 mcg fentaNYL (PF) (SUBLIMAZE) 50 mcg/mL injection 50 mcg 50 mcg, IV, ONE TIME ONLY, 1 dose, On Thu01/11/25 at 204, Routine Given 01/11/2025 9:07 PM CDT 50 mcg HYDROcodone-acetaminophen (NORCO) 7.5-325 mg per tablet 1 Tablet 1 Tablet, Oral, ONE TIME ONLY, 1 dose, On Thu01/11/25 at 1815, Routine Given 01/11/2025 6:08 PM CDT 1 Tablet ipratropium-albuteroL (DUONEB) 0.5 mg-3 mg(2.5 mg base)/3 mL inhalation solution 3 mL 3 mL, Inhalation, ONE TIME ONLY RESPIRATORY, 1 dose, On Thu01/11/25 at 1815, Routine Given 01/11/2025 6:10 PM CDT 3 mL documented in this encounter Active and Recently Administered Medications Times are shown in CDT. Scheduled Medication Order 01/09/2025 01/10/2025 01/11/2025 dexAMETHasone (DECADRON) injection 10 mg (COMPLETED) 10 mg, IV, ONE TIME ONLY, 1 dose, On Thu01/11/25 at 2030, Routine 2109 (Given - Provid er: Germaine Araiza RN) fentaNYL (PF) (SUBLIMAZE) 50 mcg/mL injection 50 mcg (COMPLETED) 50 mcg, IV, ONE TIME ONLY, 1 dose, On Thu01/11/25 at 191, Routine 1921 (Given - Provid er: Germaine Araiza RN) fentaNYL (PF) (SUBLIMAZE) 50 mcg/mL injection 50 mcg (COMPLETED) 50 mcg, IV, ONE TIME ONLY, 1 dose, On Thu01/11/25 at 204, Routine 2106 (Given - Provid er: Germaine M Araiza, RN) HYDROcodone-acetaminophen (NORCO) 7.5-325 mg per tablet 1 Tablet (COMPLETED) 1 Tablet, Oral, ONE TIME ONLY, 1 dose, On Thu01/11/25 at 1815, Routine 1808 (Given - Provid er: Germaine Araiza RN) ipratropium-albuteroL (DUONEB) 0.5 mg-3 mg(2.5 mg base)/3 mL inhalation solution 3 mL (COMPLETED) 3 mL, Inhalation, ONE TIME ONLY RESPIRATORY, 1 dose, On Thu01/11/25 at 1815, Routine 1810 (Given - Provid er: Nani Johnson RCP) documented in this encounter Additional Health Concerns Active Problems Noted Date Diagnosed Date Heart Failure Problem 05/12/2024 documented as of this encounter Care Teams Clinical Lab Technologist Relationship Specialty Start Date End Date Delta Wade MD [address] [address] PCP - General Family Practice 03/25/24 documented as of this encounter
--- NOTE | 2025-01-15 13:41 | ECG_ITS ---
[facility] Test Date: 2025-01-15 Pat Name: Le Barnhart Department: Room: Gender: Female Child Protective Services Specialist: : 1965 Requested By: Jonathan Rice Order Number: [id number] Reading MD: ADRIEL SOTO Measurements Intervals [place] Rate: 109 P: 261 [place]: 133 QRS: 62 QRSD: 91 T: -19 QT: 323 QTc: 436 Interpretive Statements JUNCTIONAL TACHYCARDIA MODERATE T-WAVE ABNORMALITY, CONSIDER INFERIOR ISCHEMIA [-0.1+ mV T-WAVE IN II/aVF] Compared to ECG 01/07/2025 03:10:07 Junctional tachycardia now present T-wave abnormality now present Possible ischemia now present Myocardial infarct finding no longer present Electronically Signed On 01-15-2025 22:23:23 CDT by ADRIEL SOTO [email or web address]
--- NOTE | 2025-01-15 13:42 | XRR_ITS ---
PROCEDURE INFORMATION: Exam: XR Chest Exam date and time: 01/15/2025 2:05 PM Age: 59 years old Clinical indication: Shortness of breath; Additional info: SOB; Copd exacerbation TECHNIQUE: Imaging protocol: Radiologic exam of the chest. Views: 1 view. COMPARISON: CR (CHEST, ) 01/07/2025 3:38 AM FINDINGS: Lungs: Unremarkable. No consolidation. Pleural spaces: Unremarkable. No pleural effusion. No pneumothorax. Heart/Mediastinum: Unremarkable. No cardiomegaly. Bones/joints: There is a partially evaluated lower cervical spine ACDF (anterior cervical discectomy and fusion). XR/XR chest 1V portable 10046 IMPRESSION: No focal lung consolidations.
--- OUTSIDE RECORDS SUMMARY | 2025-01-15 13:42 | XMS_ITS ---
Author Organization Formerly [facility] Address [address] [place] [address] Phone Care Team Providers Care Heat Sealing Machine Operator Name Role Phone Delta Wade MD Primary Care Provider [phone] Active Problems Problem Noted Date Diagnosed Date Demand ischemia of myocardium 12/31/2024 Increased abdominal girth 12/31/2024 Abdominal pain, acute, right upper quadrant 12/21 Obesity (BMI 30-39.9) 12/31/2024 Left arm swelling 12/28/2024 Type 2 diabetes [...] 10/16/2024 Acute respiratory failure with hypercapnia 09/13 At risk for obstructive sleep apnea 08/25/2024 Back pain 08/18/2024 L1 vertebral fracture 08/15/2024 Closed compression fracture of body of L1 verteb ra 08/15/2024 Fall 08/14/2024 Chronic anticoagulation 08/09/2024 CAD (coronary atherosclerotic disease) Morbid obesity due to excess calories 08/04/2024 Insulin dependent type 2 diabetes mellitus 07/23 Benign hypertension 07/23/2024 Acute on chronic hypoxic respiratory failure 04/2024 Acute respiratory distress 07/19/2024 Anemia 07/12/2024 HFrEF (heart failure with reduced [...] of te-moak heart without angina pectoris 06/14/2019 Former smoker [...] 72.3 51 mg/m2 (140 mg) Effective Dose 284.7 mSv 284.7 mSv 0 mSv Total DLP 23,436.32 DLP 23,436.32 DLP 0 DLP CTDIvol Max 934.96 mGy 934.96 mGy 0 mGy CTDIvol Min 219.84 mGy 219.84 mGy 0 mGy Fluoro 7.4 Minutes 0 Minutes 7.4 Minutes Air Kerma 495 mGy 0 mGy 495 mGy Dose Area Product (DAP) 55.2 Gy-cm2 0 Gy-cm2 55.2 Gy-cm2 Resolved Problems Problem Noted Date Diagnosed Date Resolved Date Syncope and collapse 01/08/2025 025 Acute exacerbation of chroni c obstructive pulmonary disease 12/28/2024 01/11/2025 Shortness of breath 10/31/2024 11/05/19 25 Other chest pain 10/31/2024 11/04/2024 syncopal episode 10/31/2024 11/04/2024 Pain of upper abdomen 10/28/20242024 Acute on chronic congestive heart failure 10/17/2024 11/21/2024 Dark stools 10/10/2024 11/21/2024 Diarrhea 09/13/2024 11/21/2024 Chest pain 08/26/2024 01/11/2025 COPD exacerbation 08/22/2024 11/04/2024 Rhinovirus infection 08/15/2024 025 Dyspnea 08/15/2024 01/11/2025 Chest pain 08/05/2024 08/09/2024 Acute on chronic respiratory failure with hypoxia and hypercapnia 07/22/2024 08/09/2024 Pneumonia of left lung due t o infectious organism 07/22/2024 11/21/2024 COPD exacerbation 07/21/2024 08/09/2024 Macrocytosis 07/19/2024 11/21/2024 Acute on chronic combined sy stolic (congestive) and diastolic (congestive) heart failure 07/18/2024 01/11/2025 Cellulitis of right lower extremity 07/14/2024 11/21/2024 [...] Staging:Clinical:FIGO Stage III- Signed by Jenniffer Lepe APRN-RNADAL on 09/29/2019 Carcinoma in situ of vagina 06/16/2019 12/02/2022 Urinary incontinence 07/30/2011 025 Breast mass 08/22/2010 12/02/2022 Anxiety with depression 08/22/201011/21 Anxiety state 05/08/2010 12/02/2022
--- OUTSIDE RECORDS SUMMARY | 2025-01-15 13:43 | XMS_ITS | Encounter Summary ---
Author Organization [facility] Address [address] [place] [address] Care Team Providers Care Drain Tile Machine Operator Name Role Phone Delta Wade MD Primary Care Provider [phone] Encounter Details Date Type Department Care Team ([facility] st Contact Info) Description 06/16/2024 Telephone [facility] Ophthal[place] [address] [place] [phone] Eduardo Craven MD [address] [place] [place] [phone] Social History Tobacco Use Types Packs/Day [...] often do you attend chur ch or adventism services? More than 4 times per year 06/13/2019 Do you belong to any clubs o r organizations such as restorationist groups, unions, fraternal or athletic groups, or [...] on file Legal Sex Female 11:49 PM SODA DISPENSER Gender Identity Not on file Sexual Orientation [...] (Latest Contact Info) Description 01/25/2025 12:00 PM SODA DISPENSER Hospital Encounter [place] [address] [phone] Kumar Ochoa MD [address] [phone] Combined forms of age-related cataract of right eye 01/25/2025 1:00 PM SODA DISPENSER - 01/25/2025 2:13 PM SODA DISPENSER Surgery [place] [address] [phone] Kumar Ochoa MD [address] [phone] CATARACT EXTRACTION IOL INSERTION FEMTO LASER ASSISTED LEVEL 1 01/26/2025 8:30 AM SODA DISPENSER Office Visit [facility] Ophthalmology [place] [address] [phone] Eduardo Craven MD [address] [phone] 02/01/2025 9:00 AM SODA DISPENSER Office Visit [facility] Ophthalmology [place] [address] [phone] Paul Bustillos, OD [address] [phone] 02/14/2025 3:00 PM SODA DISPENSER Office Visit [facility] Pulmonology [address] [place] [address] [place] [address] Angeli Miles MD [address] [place] [phone] Scheduled Procedures Name Priority Associated Diagnoses Date/Ti me CATARACT EXTRACTION IOL INSERTION FEMTO LASER ASSISTED LEVEL 1 Combined forms of age-related cataract of right eye Right retinal detachment 01/25/2025 1:00 PM SODA DISPENSER PARS PLANA VITRECTOMY WITH LASER Combined forms of age-related cataract of right eye Right retinal detachment 01/25/2025 1:00 PM SODA DISPENSER EYE PLACEMENT OF SILICONE OIL Combined forms of age-related cataract of right eye Right retinal detachment 01/25/2025 1:00 PM SODA DISPENSER documented as of this encounter Goals Goal [...] 01/03/2025 01/03/2025 01/03/2025 8 :52 PM CDT R/O Respiratory 01/07/2025 01/07/2025 01/08/2025 5 :44 AM CDT documented as of this encounter Care Teams Drain Tile Machine Operator Relationship Specialty Start Date End Date Delta Wade MD [address] [place] [id number] PCP - General Family Practice 03/25/24 documented as of this encounter
--- OUTSIDE RECORDS SUMMARY | 2025-01-15 13:43 | XMS_ITS | Encounter Summary ---
Author Organization [facility] Address [address] [place] [address] Care Team Providers Care Screw Remover Name Role Phone Delta Wade MD Primary Care Provider [phone] Reason for Visit * Reason Comments Hospital Follow Up Encounter Details Date Type Department Care Team ([facility] Contact Info) Description 05/13/2024 Telephone [facility] Medicine [place] [address] [place] [address] Kay Lima, [facility] [address] [place] [address] Hospital Follow Up Social History [...] How often do you attend chur or evangelical services? More than 4 times per year [...] on file Legal Sex Female 11:49 PM TOP PRINTING PRESS OPERATOR Gender Identity Not on file Sexual Orientation Not on file documented as of this encounter Miscellaneous Notes * Telephone Encounter - Danyell Rashid - 05/13/2024 12:30 PM TOP PRINTING PRESS OPERATOR Called pt back. Could not leave voicemail. If patient calls back please schedule for hospital follow up appointment for the next opening spot. Can be vv if patient cannot travel to clinic. PRINTING PRESS OPERATOR * Telephone Encounter - Gypsy Gerber - 05/13/2024 12:02 PM CST Copied from [facility] #[id number]. Topic: Reschedule/Cancel Appointment/Late Arrival >> May 13, [...] of hospital discharge? 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 [facility] PRINTING PRESS OPERATOR documented in this encounter Plan of Treatment Upcoming Encounters Date Type Department Care Team (Latest Contact Info) Description 01/25/2025 12:00 PM TOP PRINTING PRESS OPERATOR Hospital Encounter [facility] [address] [facility] [address] [place] [phone] Kumar Ochoa MD [address] [facility] [address] [place] [address] Combined forms of age-related cataract of right eye 01/25/2025 1:00 PM TOP PRINTING PRESS OPERATOR - 01/25/2025 2:13 PM TOP PRINTING PRESS OPERATOR Surgery [facility] [address] [address] [place] [address] Kumar Ochoa MD [address] [place] [address] [place] [phone] CATARACT EXTRACTION IOL INSERTION FEMTO LASER ASSISTED LEVEL 1 01/26/2025 8:30 AM TOP PRINTING PRESS OPERATOR Office Visit [facility] Ophthalmology [place] [address] [place] [address] [phone] Eduardo Craven MD [address] [place] [address] [place] [phone] 02/01/2025 9:00 AM TOP PRINTING PRESS OPERATOR Office Visit [facility] Ophthalmology [place] [address] [place] [address] [phone] Paul Bustillos, ISSA [address] [place] [address] [place] [phone] 02/14/2025 3:00 PM TOP PRINTING PRESS OPERATOR Office [facility] Pulmonology [address] [place] [address] [place] [address] [place] [phone] Angeli Miles MD [address] [place] [address] [place] [phone] Scheduled Procedures Name Priority Associated Diagnoses Date/Ti me CATARACT EXTRACTION IOL INSERTION FEMTO LASER ASSISTED LEVEL 1 Combined forms of age-related cataract of right eye Right retinal detachment 01/25/2025 1:00 PM TOP PRINTING PRESS OPERATOR PARS PLANA VITRECTOMY WITH LASER Combined forms of age-related cataract of right eye Right retinal detachment 01/25/2025 1:00 PM TOP PRINTING PRESS OPERATOR EYE PLACEMENT OF SILICONE OIL Combined forms of age-related cataract of right eye Right retinal detachment 01/25/2025 1:00 PM TOP PRINTING PRESS OPERATOR documented as of this encounter Goals [...] R/O COVID-19 05/13/2024 05/13/2024 05/14/2024 4:15 AM TOP PRINTING PRESS OPERATOR R/O Respiratory 06/30/2024 06/30/2024 06/30/2024 1 [...] documented as of this encounter Care Teams Screw Remover Relationship Specialty Start Date End Date Delta Wade MD [address] [address] PCP - General Family Practice 03/25/24 documented as of this encounter
--- OUTSIDE RECORDS SUMMARY | 2025-01-15 13:43 | XMS_ITS | Clinical Summary ---
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 15 mL Active levalbuterol (XOPENEX) 1.25 mg/3 mL Solution [...] does not remember instructions about warfarin Active ipratropium-alb uteroL (DUONEB) 0.5 mg-3 mg(2.5 [...] mouth daily before breakfast. 30 Tablet Active tiotropium-olod ateroL (STIOLTO RESPIMAT) 2.5-2.5 mcg/actuation metered inhaler Take 2 Puffs by inhalation daily. 4 Gram 025 2024 Active LORazepam (ATIVAN) 0.5 mg tabletIndicatio ns:Anxiety state Take 1 Tablet (0.5 mg) by mouth every 8 hours as needed for Anxiety. 20 Tablet 2024 Discontinued oxygen home delivery Home Oxygen Concentrator yes at 3 L/M Rest, 3 L/M Activity, 3 L/M Sleep, Delivery Device: Nasal Cannula Portability: yes, 3 L/M Rest, L/M Activity, May provide device best for patient needs(E system,home fill, conserving device) Length of Need: 99 months 1 Each 2024 Discontinued levalbuterol (XOPENEX) 1.25 mg/3 mL [...] by mouth 2 times daily. 60 Tablet 025 2024 Discontinued furosemide (LASIX) 80 mg tablet Take 1 Tablet (80 mg) by mouth 2 times daily. 60 Tablet 3 025 2024 Discontinued budesonide 160 mcg-glycopyr 9 mcg-formot 4.8 mcg/actuation HFA inhaler Take 2 Puffs by inhalation 2 times daily. 60 Each 1 025 2024 Discontinued methocarbamoL (ROBAXIN) 500 mg tablet Take 1 Tablet (500 mg) by mouth every 6 hours as needed for Spasm. 20 Tablet 2024 Discontinued benzonatate (TESSALON) 100 mg capsule Take 1 Capsule (100 mg) by mouth every 4 hours as needed for Cough. 60 Capsule 1 025 2024 Discontinued lidocaine (LIDODERM) 5 % [...] hours for 7 days. 14 Tablet 2024 Discontinued predniSONE (DELTASONE) 20 mg tablet Take 2 Tablets (40 mg) by mouth daily with breakfast. Until followup with PCP in 3 days then thereafter per their directives 10 Tablet 2024 Discontinued tiotropium-olod ateroL (STIOLTO RESPIMAT) 2.5-2.5 mcg/actuation metered inhaler Take 2 Puffs by inhalation daily. 4 Gram 11 2024 Discontinued predniSONE (DELTASONE) 20 mg tablet Take 2 Tablets (40 mg) by mouth daily for 4 days. 8 Tablet 2024 cefpodoxime (VANTIN) 200 mg Tablet Take 1 Tablet (200 mg) by mouth every 12 hours for 5 days. 10 Tablet 2024 oxygen home delivery Home Oxygen Concentrator yes at 0 L/M Rest, 2 L/M Activity, 0 L/M Sleep, Delivery Device: Nasal Cannula Portability: yes, 0 L/M Rest, 2 L/M Activity, May provide device best for patient needs(E system,home fill, conserving device) Length of Need: 99 months 1 Each 2024 Discontinued Hospital, Clinic, or Other Facility Administered Medication Ordered Dose Route Frequency Start Date End Date Status Artificial Tear(Gonioscop-HP M) (GONAK) 2.5 % ophthalmic solution 2 Drop 2 Drop Right Eye ONE TIME ONLY 12/16/2024 5 Ended proparacaine (OPTHAINE) 0.5 % ophthalmic solution 2 Drop 2 Drop Right Eye ONE TIME ONLY 12/16/2024 5 Ended sod borate-boric [id number] (COLLYRIUM) opthalmic solution 1 Drop 1 Drop [...] Drop Both Eyes ONE TIME ONLY 12/22/2024 5 Discontinued phenylephrine 2.5 % ophthalmic solution [...] INTRA-PROCEDUR E ONCE PRN 12/22/2024 5 Ended povidone-iodine (BETADINE) 5 % ophthalmic solution 1 DropIndications:C ombined forms of age-related cataract of both eyes 1 Drop Right Eye INTRA-PROCEDUR E ONCE 12/22/2024 Discontinued vancomycin in NS (PF) 1 mg/0.1 mL ophthalmic solution compound 0.3 mLIndications:Com bined forms of age-related cataract of both eyes 0.3 mL Right Eye INTRA-PROCEDUR E ONCE 12/22/2024 Discontinued Active Problems Problem Noted Date Diagnosed [...] 06/14/2019 H/O vaginal surgery 06/14/2019 Atherosclerosis of [place] co ronary artery of [place] heart without angina pectoris 06/14/2019 Former smoker [...] 12/28/2024 01/11/2025 Shortness of breath 10/31/2024 11/05/19 Other chest [...] Encounters Date Type Department Care Team Description 01/12/[address] [facility] [address] [place] [phone] Kapil Deluna DO 01/11/2025 5:53 PM CDT - 01/11/2025 9:31 PM CDT Emergency [facility] Emergency Department [address] [place] [phone] Aki Briceno DO COPD with exacerbation (CMS/HCC) (Primary Dx) Discharge Disposition: Home or Self Care 01/11/2025 Travel 01/07/2025 10:54 PM CDT - 01/09/2025 12:29 PM CDT Hospital Encounter [facility] 4B Cardiac [address] [place] [phone] Tresa Mueller MD Patel, Taksh, MD Bajor, Conrad Mitchell, DO Acute on chronic combined systolic (congestive) and diastolic (congestive) heart failure Discharge Disposition: Home or Self Care 01/05/2025 Telephone [facility] [address] [place] [address] Veronika Yusuf, RN Anticoagulation 01/05/2025 Results Follow-Up [facility] Emergency Department [address] [place] [address] Ayana Roman, RN BLOOD CULTURE, BLOOD CULTURE 01/04/2025 6:42 AM CDT - 01/06/2025 3:08 PM CDT Hospital Encounter [facility] 6D Neuro Trauma Progressive [facility] [address] [place] [address] Heike Camarillo MD McGinnis, MD Argentina Miles Marwan, MD Acute on chronic combined systolic (congestive) and diastolic (congestive) heart failure Discharge Disposition: Home or Self Care 01/04/2025 Travel 01/03/2025 6:55 PM CDT - 01/03/2025 10:03 PM CDT Emergency [facility] Emergency Department [address] [place] [address] Quirino Cates DO COPD with exacerbation (CMS/HCC) (Primary Dx) Discharge Disposition: Home or Self Care 12/28/2024 2:19 AM CDT - 12/29/2024 12:02 PM CDT Hospital Encounter [facility] Medical Telemetry [address] [place] [phone] Tarik Albert MD Brooks, Cynthia J, DO Norman, Ryan Michael, DO Acute on chronic hypoxic respiratory failure (CMS/HCC) Discharge Disposition: Home or Self Care 12/28/2024 Travel 12/23/2024 10:38 PM CDT - 12/24/2024 5:50 AM CDT Emergency [facility] Emergency Department [address] [place] [address] Discharge Disposition: Left without being seen 12/23/2024 Orders Only [facility] Ophthal[facility] [place] [address] [phone] Kumar Ochoa MD 12/22/2024 8:00 AM CDT Office Visit [facility] [address] [address] Kumar Ochoa MD Combined forms of age-related cataract of both eyes (Primary Dx); Right retinal detachment; Non-proliferative diabetic retinopathy, left eye; Other specified disorders of iris and ciliary body 12/22/2024 7:45 AM CDT Chart Note [facility] [address] [address] Kumar Ochoa MD 12/22/2024 Telephone [facility] [address] [address] Kumar Ochoa MD Surgery Talk (Called patient and left voicemail requesting a return call to schedule surgery.) 12/17/2024 5:18 PM CDT - 12/19/2024 12:58 PM CDT Hospital Encounter [facility] 4B Cardiac [address] [place] [address] Bala Prieto MD Elgayesh, Mostafa Mahmoud, MD Nerella, Ravi V., MD COPD with exacerbation ([facility]) Discharge Disposition: Home or Self Care 12/16/2024 12:50 PM CDT [facility] [address] [address] Eduardo Craven MD Right retinal detachment (Primary Dx); Nuclear sclerotic cataract of right eye 12/13/2024 Telephone [facility] [address] [place] [address] Veronika Yusuf RN Anticoagulation 12/09/2024 5:59 PM CDT - 12/13/2024 12:00 PM CDT Hospital Encounter [facility] 4D Surgery Heart Lung [address] [place] [address] Gibert, ChristophMD Tiburcio Turner Gregory A, DO Almond, Toni L, MD COPD exacerbation ([facility]/HCC) Discharge Disposition: Home or Self Care 12/09/2024 Travel 11/29/2024 Telephone [facility] [address] [place] [address] Veronika Yusuf RN Anticoagulation 11/28/2024 5:27 PM CDT - 12/02/2024 1:32 PM CDT Hospital Encounter [facility] 3D Medical Telemetry [address] [place] [address] Cassius Sanderson MD Abbas, MD Dinah Soto, Matilde Henry MD COPD exacerbation ([facility]) Discharge Disposition: Home or Self Care 11/27/2024 4:20 PM CDT - 11/27/2024 7:43 PM CDT Emergency [facility] Emergency Department [address] [place] [phone] Jonny Bowers MD Dyspnea, unspecified type (Primary Dx) Discharge Disposition: Home or Self Care 11/21/2024 6:34 PM CDT - 11/23/2024 1:54 PM CDT Hospital Encounter [facility] 6B Medical Surgical [address] [place] [address] Kay Majano MD Sundaram, Vignesh, MD Phelps, Jamie, MD Kaur, MD Trini Centrilobular emphysema Discharge Disposition: Home or Self Care 11/21/2024 Travel 11/18/2024 5:04 PM CDT - 11/18/2024 9:56 PM CDT Emergency [facility] Emergency Department [address] [place] [phone] Tresa Mueller MD Multiple leg contusions, left, initial encounter (Primary Dx); Strain of left ankle, initial encounter; Anticoagulated; Contusion of multiple sites of left lower extremity, initial encounter Discharge Disposition: Home or Self Care 11/18/2024 Travel 11/15/2024 Telephone [facility] [address] [place] [address] Veronika Yusuf, RN Anticoagulation 11/13/2024 10:17 AM CDT - 11/16/2024 1:34 PM CDT Hospital Encounter [facility] 6B Medical Surgical [address] [place] [address] Austin Robertson MD Kakakhel, Zainab, MD [place], Anthony Charles, DO COPD with exacerbation (CMS/HCC) Discharge Disposition: Home or Self Care 11/12/2024 9:40 PM CDT - 11/12/2024 9:42 PM CDT Emergency [facility] Emergency Department [address] [place] [address] Discharge Disposition: Left Against Medical Advice 11/12/2024 Travel 11/11/2024 7:54 PM CDT - 11/12/2024 12:59 AM CDT Emergency [facility] Emergency Department [address] [place] [phone] Aki Booth, Skin abrasion (Primary Dx); Dyspnea, unspecified type Discharge Disposition: Home or Self Care 11/11/2024 Travel 11/09/2024 Telephone [facility] [place] [address] [address] Eduardo Craven MD Needs Appointment 11/08/2024 4:05 AM CDT - 11/10/2024 2:03 PM CDT Hospital Encounter [facility] 4C Medical [address] [place] [address] Jonny Bowers MD Bandaru, Kiran Babu, MD COPD with exacerbation (CMS/HCC) Discharge Disposition: Home or Self Care 11/07/2024 11:50 AM CDT - 11/07/2024 11:59 PM CDT Hospital Encounter [facility] [address] [place] [address] Ambulance, [facility] Discharge Disposition: [facility] 11/05/2024 4:22 PM CDT - 11/07/2024 3:04 PM CDT Hospital Encounter [facility] 4A Cardiac [address] [place] [phone] Aki Booth DO Abbas, Muhammad Khalid, MD Nagotu Kambagiri, Sharada, MD COPD exacerbation (CMS/HCC) Discharge Disposition: Home or Self Care 10/31/2024 6:02 AM CDT - 11/04/2024 4:24 PM CDT Hospital Encounter [facility] 4B Cardiac [address] [place] [phone] Aggie Rivas DO Griffin, Kristin L, MD Kuppi Reddy, Madhavi, MD Siddiqi, MD James Syncope Discharge Disposition: Home or Self Care 10/29/2024 11:32 PM CDT - 10/30/2024 12:54 AM CDT Emergency [facility] Emergency Department [address] [place] [phone] Discharge Disposition: Left Against Medical Advice 10/28/2024 Telephone [facility] [address] [place] [phone] Veronika Yusuf RN Anticoagulation 10/26/2024 3:29 PM CDT - 10/29/2024 12:37 PM CDT Hospital Encounter [facility] 4C Medical [address] [place] [phone] Haven Joshi DO Abbas, MD Jony Soto Melissa Mae, MD COPD exacerbation (CMS/HCC) Discharge Disposition: Home or Self Care 10/26/2024 Travel 10/20/2024 5:35 PM CDT - 10/20/2024 10:25 PM CDT Emergency [facility] Emergency Department [address] [place] [phone] Laron Hanson DO Beard, Courtney Elizabeth, MD Shortness of breath (Primary Dx); Bilateral upper abdominal pain Discharge Disposition: Home or Self Care 10/20/2024 Travel 10/16/2024 1:28 AM CDT - 10/19/2024 11:37 AM CDT Hospital Encounter [address] Medical [address] [place] [phone] Slim Galan DO Salana, Hari Krishna, MD Patel, Taksh, MD Acute on chronic hypoxic respiratory failure (CMS/HCC) Discharge Disposition: Home or Self Care 10/16/2024 Travel from Last 3 Months Immunizations Immunization [...] PNEUM OCOCCAL CONJUGATE VACCINE 20-VALENT (PCV20), POLYSACCHARIDE UIL557 CONJUGATE, ADJUVANT 0.5 ML (PF) IM 06/05/2023,12/02/2022,12/25/2021 [...] any clubs o r organizations such as protestant groups, unions, fraternal or athletic groups, or [...] worry about transportation for future doctor visits, tack picker medication, etc.? No 2024 Housing Stability [...] on file Legal Sex Female 11:49 PM EMBEDDED DEVELOPER Gender Identity Not on file Sexual Orientation [...] Mass Index 34.33 01/11/2025 5:36 PM CDT Plan of Treatment Upcoming Encounters Date Type Department Care Team (Latest Contact Info) Description 01/25/2025 12:00 PM EMBEDDED DEVELOPER Hospital Encounter [place] [id number] [phone] Kumar Ochoa MD [address] [facility] [address] [place] [phone] Combined forms of age-related cataract of right eye 01/25/2025 1:00 PM EMBEDDED DEVELOPER - 01/25/2025 2:13 PM EMBEDDED DEVELOPER Surgery [place] [phone] [place] [phone] Kumar Ochoa MD [address] [place] [address] [address] CATARACT EXTRACTION IOL INSERTION FEMTO LASER ASSISTED LEVEL 1 01/26/2025 8:30 AM EMBEDDED DEVELOPER Office Visit [facility] Op[facility] [place] [address] [place] [address] [address] Eduardo Craven MD [address] [place] [address] [place] [phone] 02/01/2025 9:00 AM EMBEDDED DEVELOPER Office Visit [facility] [place] [address] [address] Paul Bustillos, ISSA [address] [address] 02/14/2025 3:00 PM EMBEDDED DEVELOPER Office Visit [facility] Pulmonology [address] [place] [address] [place] [address] [place] [phone] Angeli Miles MD [address] [place] [address] [place] [phone] Scheduled Procedures Name Priority Associated Diagnoses Date/Ti me CATARACT EXTRACTION IOL INSERTION FEMTO LASER ASSISTED LEVEL 1 Combined forms of age-related cataract of right eye Right retinal detachment 01/25/2025 1:00 PM EMBEDDED DEVELOPER PARS PLANA VITRECTOMY WITH LASER Combined forms of age-related cataract of right eye Right retinal detachment 01/25/2025 1:00 PM EMBEDDED DEVELOPER EYE PLACEMENT OF SILICONE OIL Combined forms of age-related cataract of right eye Right retinal detachment 01/25/2025 1:00 PM EMBEDDED DEVELOPER Health Maintenance Due Date Last Done Comments [...] Anguiano LPN Medical Devices Implanted Type Area Director Of Provider Relations Device Identifier Shelf Expiration Date Model / Serial / Lot Dev Closure Angioseal 6fr Vip [id number] - [id number] Implanted:Qty: 1 on 03/21/2024 by Kyler Helm MD at [facility] Closure Device Right: Groin TERUMO- CARDIOVASC SYS [id number] 10/25/2024 [id number] / / [id number] 93 Imp Toe Phalinx 10 Solid [facility] [id number] - [id number] Implanted:Qty: 1 on 07/20/2024 by Tereso Gil DPM at [facility] Toe Left: Foot DANISH [employer] 12/29/2031 [id number] / / [id number] Procedures Procedure Name Priority Date/Time Associated Diagnosis Comments PROTIME-INR Stat 01/11/2025 6:21 PM CDT TROPONIN BASELINE, 5TH GEN Stat 01/11/2025 6:21 PM CDT BRAIN NATRIURETIC PEPTIDE, BNP OR PROBNP Stat 01/11/2025 6:21 PM CDT COMPREHENSIVE METABOLIC PANEL Stat 01/11/2025 6:21 PM CDT CBC WITH DIFFERENTIAL Stat 01/11/2025 6:21 PM CDT XR CHEST PA OR AP 1 VW Stat 6:03 PM CDT EKG 12-LEAD Stat 01/11/2025 5:45 PM CDT TELEMETRY REPORT 01/10/2025 2:48 AM CDT TELEMETRY REPORT 01/09/2025 4:08 PM CDT US VENOUS DOPPLER LEG BILATERAL Routine [...] TROPONIN 2 HR, 5TH GEN Timed Study 1:48 AM CDT CTA CHEST W AND/OR WO CONTRAST Stat 01/08/2025 1:27 AM CDT PROTIME-INR Stat 01/08/2025 12:17 AM CDT TROPONIN BASELINE, 5TH GEN Stat 01/07/2025 11:40 PM CDT BRAIN NATRIURETIC PEPTIDE, BNP OR PROBNP Stat 01/07/2025 11:40 PM CDT COMPREHENSIVE METABOLIC PANEL Stat 01/07/2025 11:40 PM CDT CBC WITH DIFFERENTIAL Stat 01/07/2025 11:40 PM CDT XR CHEST PA OR AP 1 VW Stat 10:03 PM CDT EKG 12-LEAD Stat 01/07/2025 9:56 PM CDT RT ASSESS AND TREAT Stat 01/07/2025 9 :52 PM CDT POC GLUCOSE Routine 01/06/2025 11:42 AM CDT [...] EKG 12-LEAD Stat 10/16/2024 1:25 AM CDT LIPID PANEL Routine 02/19/2024 5:29 AM EMBEDDED DEVELOPER MICROALBUMIN/CREATININ E RATIO, RANDOM UR Routine 02/26/2023 3:01 PM EMBEDDED DEVELOPER Type 2 diabetes mellitus without complication, without long-term current use of insulin ([facility]) Wellness examination CERV/VAG CYTO SCREEN PAP W/HPV Routine 01/06/2023 12:00 AM CDT Wellness examination MAMMO DIAGNOSTIC UNI RIGHT W OR WO CAD Routine 01/24/2011 10:03 AM CDT Lump or mass in breast from Last 3 Months or Most Recently Relevant to Health Maintenance Results * (ABNORMAL) TROPONIN BASELINE, 5TH GEN (01/11/2025 6:21 PM CDT) Only the most recent of15 resultswithin the time period is included. TROPONIN T, BASELINE 5TH GEN 25(H) <=10 ng/L 01/11/2025 7:17 PM CDT [facility] Blood Venipuncture / Unknown 01/11/2025 6:21 PM CDT 01/11/2025 6:43 PM CDT Narrative [facility] - 01/11/2025 7:17 PM CDT Troponin elevated. us Jagjit MCNAMARA CHEMISTRY ORDERABLES Final Result [facility] CLIA # [id number] [address] [address] [place] [address] * (ABNORMAL) CBC WITH DIFFERENTIAL (01/11/2025 6:21 PM CDT) Only the most recent of38 resultswithin the time period is included. [facility] WBC 7.2 4.8 - 10.8 K/uL 01/11/2025 6:53 PM CDT [facility] NRBCS 1(H) <1 % 01/11/2025 6:53 PM [facility] RBC 4.06(L) 4.20 - 5.40 M/uL 01/11/2025 6:53 PM CDT [facility] HEMOGLOBIN 11.7(L) 12.0 - 16.0 g/dL 01/11[facility]2025 6:[facility] 38.4 36.0 - 46.0 % 01/11/2025 6:53 PM [facility] MCV 94.6 84.0 - 103.0 fL 01/11/2025 6:53 PM [facility] MCH 28.8 27.0 - 34.0 pg 01/11/2025 6:53 PM [facility] MCHC 30.5 30.0 - 35.0 g/dL 01/11/2025 6:53 PM [facility] PLATELETS 212 140 - 440 K/uL 01/11/2025 6:53 PM [facility] MPV 11.0 8.9 - 12.8 fL 01/11/2025 6:53 PM [facility] RDW 18.6(H) 11.0 - 14.5 % 01/11/2025 6:53 PM [facility] RDW-STDEV 65.1(H) 37.0 - 54.0 fL 01/11/2025 6:53 PM [facility] NEUTROPHILS 55 42 - 75 % 01/11/2025 6:53 PM [facility] LYMPHOC[facility]TES 29 24 - 44 % 01/11/2025 6:53 PM CDT [facility] MONOCYTES 13(H) 2 - 10 % 01/11/2025 6:53 PM CDT [facility] EOSINOPHILS 1 0 - 7 % 01/11/2025 6:53 PM CDT [facility] BASOPHILS 1 0 - 1 % 01/11/2025 6:53 PM CDT [facility] IMMATURE GRANULOCYTES 2 0 - 2 % 01/11/2025 6:53 PM CDT [facility] NEUTROPHIL ABSOLUTE 3.98 2.00 - 8.00 K/uL 01/11/2025 6:53 PM CDT [facility] LYMPHOCYTE ABSOLUTE 2.07 1.20 - 4.00 K/uL 01/11/2025 6:53 PM CDT [facility] MONOCYTE ABSOLUTE 0.93(H) 0.10 - 0.60 K/uL 01/11/2025 6:53 PM CDT [facility] EOSINOPHIL ABSOLUTE 0.06 0.00 - 0.70 K/uL 01/11/2025 6:53 PM CDT [facility] BASOPHILS ABSOLUTE 0.04 0.00 - 0.20 K/uL 01/11/2025 6:53 PM CDT [facility] IMMATURE GRANULOCYTES ABSOLUTE 0.11(H) 0.00 - 0.10 K/uL 01/11/2025 6:53 PM CDT [facility] SMEAR REVIEWED: NA - Not Applicable 01/11/2025 6:53 PM T [facility] Blood Venipuncture / Unknown 01/11/2025 6:21 PM CDT 01/11/2025 6:43 PM CDT us Jagjit MCNAMARA HEMATOLOGY ORDERABLES Final Result [facility] CLIA # [id number] [address] [place] [address] [place] [address] * (ABNORMAL) PROTIME-INR (01/11/2025 6:21 PM CDT) Only the most recent of38 resultswithin the time period is included. PROTIME 17.1(H) 12.7 - 14.9 Seconds 01/11/2025 7:02 PM CDT [facility] INR 1.3(H) 0.8 - 1.2 01/11/2025 7:02 PM CDT [facility] Blood Venipuncture / Unknown 01/11/2025 6:21 PM CDT 01/11/2025 6:43 PM CDT Narrative [facility] - 01/11/2025 7:02 PM CDT Expected Values [...] INR 2.5; range 2.0 - 3.0 Aki Briceno DO HEMATOLOGY ORDERABLES Final R esult [facility] CLIA # [id number] [address] [place] [address] * (ABNORMAL) BRAIN NATRIURETIC PEPTIDE, BNP OR PROBNP (01/11/2025 6:21 PM CDT) Only the most recent of18 resultswithin the time period is included. PROBNP, N TERMINAL 597(H) 0 - 125 pg/mL 01/11/2025 7:28 PM CDT [facility] Comment: INTERPRETIVE COMMENT based [...] us Jagjit MCNAMARA CHEMISTRY ORDERABLES Final Result [facility] CLIA # [id number] [address] [address] [place] [address] * (ABNORMAL) COMPREHENSIVE METABOLIC PANEL (01/11/2025 6:21 PM CDT) Only the most recent of32 resultswithin the time period is included. SODIUM 138 136 - 145 mmol/L 01/11/2025 7:28 PM CDT [facility] POTASSIUM 3.6 3.5 - 5.1 mmol/L 01/11/2025 7:28 PM CDT [facility] CHLORIDE 100 98 - 107 mmol/L 01/11/2025 7:28 PM T [facility] CO2 23 22 - 29 mmol/L 01/11/2025 7:28 PM T [facility] CALCIUM 10.0 8.6 - 10.0 mg/dL 01/11/2025 7:28 PM T [facility] BUN 14 6 - 20 mg/dL 01/11/2025 7:28 PM T [facility] CREATININE 0.50(L) 0.51 - 0.95 mg/dL 01/11/2025 7:28 PM T [facility] GLUCOSE 378(H) 74 - 99 mg/dL 01/11/2025 7:28 PM T [facility] TOTAL PROTEIN 7.1 6.4 - 8.3 g/dL 01/11/2025 7:28 PM T [facility] ALBUMIN 3.8 3.5 - 5.2 g/dL 01/11/2025 7:28 PM CDT [facility] BILIRUBIN TOTAL 0.2 0.0 - 1.0 mg/dL 01/11/2025 7:28 PM CDT [facility] ALKALINE PHOSPHATASE 163(H) 35 - 104 U/L 01/11/2025 7:28 PM CDT [facility] AST 23 10 - 35 U/L 01/11/2025 7:28 PM T [facility] Comment:Hemolysis present. R esult may be falsely elevated. ALT 24 <=35 U/L 01/11/2025 7:28 PM CDT [facility] GFR >60 >=60 mL/min/1. 73 sq meter 01/11/2025 7:28 PM T [facility] Comment:eGFR calculated with 2020 CKD-EPI equation. Vegetarian diet, extremely high or low muscle mass, and may affect results. Cystatin C with Glomerular Filtration Rate is a suitable alternative for these patients. ANION GAP 15 9 - 20 mmol/L 01/11/2025 7:28 PM CDT [facility] Blood Venipuncture / Unknown 01/11/2025 6:21 PM CDT 01/11/2025 6:43 PM CDT Jagjit MCNAMARA CHEMISTRY ORDERABLES Final Result [facility] [facility] # [id number] [address] [place] [address] * XR CHEST PA OR AP 1 VW (01/11/2025 6:03 PM CDT) Only the most recent of19 [...] * EKG 12-LEAD (01/11/2025 5:45 PM CDT) Only the most recent of25 resultswithin the time period is included. 01/11/2025 5:45 PM CDT Narrative INTERFACE SYSTEM - 01/12/2025 4:03 PM CDT [place] [id number] Test Date: 2025-01-11 Pat Name: LE DIAZ Department: 11 Room: Gender: Female Field Court Researcher: [id number] : 1965 Requested By: Order Number: [id number] Reading MD: Mana Moore Measurements Intervals [place] Rate: 115 P: 0 [place]: 146 QRS: 32 QRSD: 82 T: -8 QT: 340 QTc: 470 Interpretive Statements Sinus tachycardia Possible Inferior infarct, age undetermined Abnormal ECG Electronically Signed On 01-12-2025 16:03:55 CDT by Mana Moore Procedure Note Mana Moore MD - 01/12/[address] [address] Test Date: 2025-01-11 Pat Name: LE DIAZ Department: 11 Room: Gender: Female Field Court Researcher: [id number] : 1965 Requested By: Order Number: [id number] Reading MD: Mana Moore Measurements Intervals [place] Rate: 115 P: 0 [place]: 146 QRS: 32 QRSD: 82 T: -8 QT: 340 QTc: 470 Interpretive Statements Sinus tachycardia Possible Inferior infarct, age undetermined Abnormal ECG Electronically Signed On 01-12-2025 16:03:55 CDT by Mana Moore us Jagjit MCNAMARA ECG ORDERABLES Final Resul t INTERFACE SYSTEM Refer to clinic/hospital department * TELEMETRY REPORT (01/10/2025 2:48 AM CDT) Only the most recent of13 resultswithin the time period is included. us Provider Scanning ECG ORDERABLES Final Result * US VENOUS DOPPLER LEG BILATERAL (01/09/2025 8:44 AM CDT) Anatomical Region Laterality Modality Lower Extremity Ultrasound 01/09/2025 7:30 AM CDT Narrative 01/09/2025 2:22 PM CDT [facility] Cardiovascular Services Noninvasive Vascular Laboratory [address] [place] [address] Noninvasive Vascular Lab Venous Exam Complete Lower Extremity Duplex Patient: Le Diaz Study ID: US VENOUS DOPPLE Gender: F : 1965 Age: 59 Room: [facility] Height: Weight: BSA: Pt status: Inpatient Study Date: 01/09/2025 Study Time: 07:30:16 AM BSA: Ordering: Kapil Deluna Interpreting:Lm Zimmermna Heat Set Operator: CORKY Indications: Extremity edema. Lower extremity [...] Patent; Normal phasicity; spontaneous; compressible; normal augmentation [facility] Vascular Lab is accredited with the Intersocietal Commission for the Accreditation of Vascular Laboratories (ICAVL) Prepared and Electronically Authenticated Lm Zimmerman Confirmed 01/09/2025 14:22 Procedure Note Lm Zimmerman MD - 01/09/2025 [facility] Cardiovascular Services Noninvasive Vascular Laboratory [address] [place] [address] Noninvasive Vascular Lab Venous Exam Complete Lower Extremity Duplex Patient: Le Diaz Study ID: US VENOUS DOPPLE Gender: F : 1965 Age: 59 Room: [facility] Height: Weight: BSA: Pt status: Inpatient Study Date: 01/09/2025 Study Time: 07:30:16 AM BSA: Ordering: Kapil Deluna Interpreting:Lm Zimmerman Heat Set Operator: CORKY Indications: Extremity edema. Lower extremity [...] saphenous Patent; Normal phasicity; spontaneous;compressible; normal augmentation [facility] Vascular Lab is accredited with theIntersocietal Commission for the Accreditation of Vascular Laboratories (ICAVL) Prepared and Electronically Authenticated Lm Zimmerman Confirmed 01/09/2025 14:22 Kapil Deluna DO US ORDERABLES Final R esult * (ABNORMAL) POC GLUCOSE (01/09/2025 6:59 AM CDT) Only the most recent of181 resultswithin the time period is included. GLUCOSE POC 306(H) 74 - 99 mg/dL 01/09/2025 6:59 AM CDT [facility] SPECIMEN SOURCE, GLUCOSE POC Capillary 01/09/2025 6:59 AM CDT [facility] Blood, whole 01/09/2025 6:59 AM CDT 01/09/2025 7:23 AM CDT Kapil Deluna DO POINT OF CARE TESTING F inal Result [facility] CLIA # [id number] [address] [address] [place] [address] * (ABNORMAL) GLUCOSE LEVEL (01/08/2025 11:56 PM CDT) Only the most recent of3 resultswithin the time period is included. GLUCOSE 414(HH) 74 - 99 mg/dL 01/09/2025 12:37 AM CDT [facility] Blood Venipuncture / Unknown 01/08/2025 11:56 PM CDT 01/09/2025 12:04 AM CDT us Ronak Cortes MD CHEMISTRY ORDERABLE S Final Result Performing Organization Address [facility] de Phone Number [facility] CLIA # [id number] [address] [address] [place] [address] * (ABNORMAL) TROPONIN 2 HR, 5TH GEN (01/08/2025 1:48 AM CDT) Only the most recent of10 resultswithin the time period is included. TROPONIN T, 2 HR 5TH GEN 24(H) <=10 ng/L 01/08/2025 2:24 AM CDT [facility] DELTA 2HR TROPONIN T 1 See Interp. 01/08/2025 2:24 AM CDT [facility] Blood Venipuncture / Unknown 01/08/2025 1:48 AM CDT 01/08/2025 1:53 AM CDT Narrative [facility] - 01/08/2025 2:24 AM CDT Troponin elevated. Delta not changing. Delay in collection of timed specimen beyond recommended collection interval. Results must be interpreted in clinical context. us Pablo Morales FILTER OPERATOR CHEMISTRY ORDERABLES Fi nal Result [id number] [address] [address] [place] [address] * CTA CHEST W AND/OR WO CONTRAST (01/08/2025 1:27 AM CDT) Only the most recent of5 resultswithin the time period is included. Anatomical [...] multichamber cardiomegaly with moderate three-vessel coronary atherosclerosis. us Tresa Mueller MD CT ORDERABLES Final Resul t * (ABNORMAL) NM MYOCARD PERF IMAG SPECT [...] with LVEF 35-39%. Lm Zimmerman MD, FAC, [facility] Narrative INTERFACE SYSTEM - 01/06/2025 [...] axis views. All imaging was performed on [employer] and data analyzed using [employer]. The resting heart rate was 96 beats per minute and peak heart rate during stress was 119 beats per minute. Blood pressure was 125/74 mmHg at rest and 131/79 mm Hg at peak stress. Blood pressure response was appropriate during the stress procedure. The resting electrocardiogram demonstrated atrial rhythm with PVC, possible old inferior [place], mild nonspecific ST-segment changes. During stress, no [...] axis views. All imaging was performed on [employer] and data analyzed using [employer]. The resting heart rate was 96 beats per minute and peak heart rate during stress was 119 beats per minute. Blood pressure was 125/74 mmHg at rest and 131/79 mm Hg at peak stress. Blood pressure response was appropriate during the stress procedure. The resting electrocardiogram demonstrated atrial rhythm with PVC, possible old inferior [place], mild nonspecific ST-segment changes. During stress, no [...] LVEF 35-39%. Lm Zimmerman MD, FREDA, NANCY Shailesh Elaine MD NM ORDERABLES Final Result [...] LVEF 35-39%. Lm Zimmerman MD, FREDA, NANCY Narrative INTERFACE SYSTEM - 01/06/2025 9:42 AM [...] axis views. All imaging was performed on [employer] and data analyzed using [id number]. The resting heart rate was 96 beats per minute and peak heart rate during stress was 119 beats per minute. Blood pressure was 125/74 mmHg at rest and 131/79 mm Hg at peak stress. Blood pressure response was appropriate during the stress procedure. The resting electrocardiogram demonstrated atrial rhythm with PVC, possible old inferior NJ, mild nonspecific ST-segment changes. During stress, no [...] axis views. All imaging was performed on [employer] and data analyzed using [employer]. The resting heart rate was 96 beats per minute and peak heart rate during stress was 119 beats per minute. Blood pressure was 125/74 mmHg at rest and 131/79 mm Hg at peak stress. Blood pressure response was appropriate during the stress procedure. The resting electrocardiogram demonstrated atrial rhythm with PVC, possible old inferior [place], mild nonspecific ST-segment changes. During stress, no [...] Lm Zimmerman MD, FACC, FASNC us Shailesh Elaine MD NM ORDERABLES Final Result INTERFACE SYSTEM Refer to clinic/hospital department * (ABNORMAL) LACTIC ACID (01/06/2025 1:54 AM CDT) Only the most recent of11 resultswithin the time period is included. LACTIC ACID 2.2(H) <=2.0 mmol/L 01/06/2025 2:24 AM CDT [facility] LABORATORY SERVICES [facility] Blood Venipuncture / Unknown 01/06/2025 1:54 AM CDT 01/06/2025 2:00 AM CDT us Shailesh Elaine MD CHEMISTRY ORDERABLES Final Res ult [facility] # [id number] [facility] [address] [place] [address] * (ABNORMAL) CBC WITHOUT DIFFERENTIAL (01/06/2025 1:54 AM CDT) Only the most recent of9 resultswithin the time period is included. [facility] WBC 7.0 4.8 - 10.8 K/uL 01/06/2025 2:07 AM CDT [facility] NRBCS 2(H) <1 % 01/06/2025 2:07 AM CDT [facility] RBC 3.67(L) 4.20 - 5.40 M/uL 01/06/2025 2:07 AM CDT [facility] HEMOGLOBIN 10.7(L) 12.0 - 16.0 g/dL 01/06/2025 2:07 AM T [facility] HEMATOCRIT 34.8(L) 36.0 - 46.0 % 01/06/2025 2:07 AM T [facility] MCV 94.8 84.0 - 103.0 fL 01/06/2025 2:07 AM CDT [facility] MCH 29.2 27.0 - 34.0 pg 01/06/2025 2:07 AM T [facility] MCHC 30.7 30.0 - 35.0 g/dL 01/06/2025 2:07 AM CDT [facility] PLATELETS 172 140 - 440 K/uL 01/06/2025 2:07 AM T [facility] MPV 11.0 8.9 - 12.8 fL 01/06/2025 2:07 AM T [facility] RDW 18.8(H) 11.0 - 14.5 % 01/06/2025 2:07 AM CDT [facility] RDW-STDEV 66.2(H) 37.0 - 54.0 fL 01/06/2025 2:07 AM CDT [facility] Blood Venipuncture / Unknown 01/06/2025 1:54 AM CDT 01/06/2025 1:58 AM CDT us Shailesh Elaine MD HEMATOLOGY ORDERABLES Final Re sult [facility] CLIA # [id number] [address] [place] [address] * (ABNORMAL) BASIC METABOLIC PANEL (01/06/2025 1:54 AM CDT) Only the most recent of21 resultswithin the time period is included. SODIUM 140 136 - 145 mmol/L 01/06/2025 2:29 AM T [facility] POTASSIUM 3.0(L) 3.5 - 5.1 mmol/L 01/06/2025 2:29 AM T [facility] CHLORIDE 101 98 - 107 mmol/L 01/06/2025 2:29 AM T [facility] CO2 27 22 - 29 mmol/L 01/06/2025 2:29 AM T [facility] CALCIUM 8.9 8.6 - 10.0 mg/dL 01/06/2025 2:29 AM T [facility] BUN 22(H) 6 - 20 mg/dL 01/06/2025 2:29 AM T [facility] CREATININE 0.58 0.51 - 0.95 mg/dL 01/06/2025 2:29 AM CDT [facility] GLUCOSE 348(H) 74 - 99 mg/dL 01/06/2025 2:29 AM T [facility] GFR >60 >=60 mL/min/1.7 3 sq meter 01/06/2025 2:29 AM CDT [facility] Comment:eGFR calculated with 2020 CKD-EPI equation. Vegetarian diet, extremely high or low muscle mass, and may affect results. Cystatin C with Glomerular Filtration Rate is a suitable alternative for these patients. ANION GAP 12 9 - 20 mmol/L 01/06/2025 2:29 AM CDT [facility] Blood Venipuncture / Unknown 01/06/2025 1:54 AM CDT 01/06/2025 1:58 AM CDT us Nani Borges MD CHEMISTRY ORDERABLES Fin al Result Performing Organization Address [facility] Co de Phone Number [facility] CLIA # [id number] [address] [id number] * (ABNORMAL) TROPONIN 6 HR, 5TH GEN (01/05/2025 6:12 PM CDT) Only the most recent of8 resultswithin the time period is included. TROPONIN T, 6 HR 5TH GEN 23(H) <11 ng/L 01/05/2025 7:23 PM CDT [facility] DELTA 6HR TROPONIN T 3 See Interp. 01/05/2025 7:23 PM CDT [facility] Blood Venipuncture / Unknown 01/05/2025 6:12 PM CDT 01/05/2025 6:35 PM CDT Narrative [facility] - 01/05/2025 7:23 PM CDT Troponin elevated. Delta indeterminate. us Shailesh Elaine MD CHEMISTRY ORDERABLES Final Res ult Performing Organization Address [facility] Co de Phone Number [facility] CLIA # [id number] [address] [address] [place], [place] [id number] * D-DIMER (01/05/2025 2:50 PM CDT) Only the most recent of4 resultswithin the time period is included. D-DIMER QUANT 0.50 0.00 - 0.50 ug/mL FEU 01/05/2025 3:43 PM CDT [facility] Blood Venipuncture / Unknown 01/05/2025 2:50 PM CDT 01/05/2025 2:59 PM CDT Narrative [facility] - 01/05/2025 3:43 PM CDT D-Dimer [...] Elaine MD HEMATOLOGY ORDERABLES Final Re sult [facility] CLIA # [id number] [address] [place] [address] * MAGNESIUM LEVEL (01/05/2025 4:36 AM CDT) Only the most recent of8 resultswithin the time period is included. Pathologist [facility] MAGNESIUM 1.9 1.6 - 2.6 mg/dL 01/05/2025 5:20 AM CDT [facility] Blood Venipuncture / Unknown 01/05/2025 4:36 AM CDT 01/05/2025 4:42 AM CDT Nani Borges MD CHEMISTRY ORDERABLES Fin al Result [facility] # [id number] [address] [place] [address] * INSERT PERIPHERAL IV (01/04/2025 8:35 AM CDT) Only the most recent of2 resultswithin the time period is included. Narrative [facility] - 01/04/2025 8:35 AM CDT Tasha Glynn RN 01/04/2025 9:14 AM VASCULAR ACCESS NOTE Midline PATIENT NAME: Le Diaz DATE OF : 1965 CSN: [id number] DATE: 01/04/2025 Room: 05/23 Admit Date: 01/04/2025 [...] MD IV THERAPY ORDERABLES Final Resu lt [facility] CLIA [id number] [address] [facility] [address] [place] [id number], [place] [phone] * (ABNORMAL) POC LACTIC ACID (01/04/2025 7:43 AM CDT) Only the most recent of2 resultswithin the time period is included. LACTIC ACID POC 5.3(HH) <=2.0 mmol/L 01/04/2025 7:43 AM CDT [facility] LABORAT[facility] SPECIMEN SOURCE, GASES POC Venous 01/04/2025 7:43 AM CDT [facility] CRITICALTO POC 01/04/2025 7:43 AM CDT [facility] NAME POC [id number] C 01/04/2025 7:43 AM CDT [facility] RESULTS POC Y 01/04/2025 7:43 AM CDT [facility] TIME POC 744 01/04/2025 7:43 AM CDT [facility] PUNC SITE POC No Charge 01/04/2025 7:43 AM CDT [facility] Blood 01/04/2025 7:43 AM CDT 01/04/2025 7:45 AM CDT [facility] - 01/04/2025 7:43 AM CDT References ranges displayed are for Arterial samples. Heike Camarillo MD POINT OF CARE TESTING Final Resu lt [facility] CLIA # [id number] [address] [place] [address] * (ABNORMAL) BLOOD GAS VENOUS (01/04/2025 7:43 AM CDT) Only the most recent of8 resultswithin the time period is included. PH BLOOD POC 7.35 7.32 - 7.43 01/04/2025 7:43 AM CDT [facility] PCO2 POC 37(L) 38 - 50 mm Hg 01/04/2025 7:43 AM CDT [facility] PO2 POC 56(H) 25 - 40 mm Hg 01/04/2025 7:43 AM CDT [facility] HCO3 (CALC) POC 20(L) 22 - 29 mmol/L 01/04/2025 7:43 AM CDT [facility] HEMOGLOBIN POC 11.7(L) 12.0 - 18.0 g/dL 01/04/2025 7:43 AM [facility] BASE EXCESS POC -5(L) -2 - 3 mmol/L 01/04/2025 7:43 AM [facility] O2 SATURATION POC 88(H) 40 - 70 % 01/04/2025 7:43 AM [facility] SODIUM POC 134(L) 135 - 145 mmol/L 01/04/2025 7:43 AM [facility] POTASSIUM POC 4.8 3.5 - 4.9 mmol/L 01/04/2025 7:43 AM [facility] HEMATOCRIT POC 35(L) 38 - 51 % 01/04/2025 7:43 AM [facility] PH TEMP CORRECT 7.35 7.32 - 7.43 01/05/20 7:43 AM [facility] PCO2 TEMP CORRECT 37(L) 38 - 50 mm Hg 01/04/2025 7:43 AM [facility] PO2 TEMP CORRECT 56(H) 25 - 40 mm Hg 01/04/2025 7:43 AM [facility] SPECIMEN SOURCE, GASES POC Venous 01/04/2025 7:43 AM [facility] CRITICALTO POC DR.PLATE 01/04/2025 7:43 AM [facility] NAME POC [id number] C 01/04/2025 7:43 AM [facility] RESULTS POC Y 01/04/2025 7:43 AM [facility] TIME POC 744 01/04/2025 7:43 AM [facility] CALCIUM IONIZED POC 5.1 4.8 - 5.2 mg/dL 01/04/2025 7:43 AM [facility] TCO2 (CALC) POC 22 22 - 26 mmol/L 01/04/2025 7:43 AM [facility] PUNC SITE POC No Charge 01/04/2025 7:43 AM [facility] PATIENT'S TEMPERATURE POC 37.0 degrees 01/04/2025 7:43 AM [facility] Blood, venous 01/04/2025 7:4 3 AM CDT 01/04/2025 7:45 AM CDT us Heike Camarillo MD ABG ORDERABLES Final Result [facility] CLIA # [id number] [address] [place] [address] [place] [address] * (ABNORMAL) BLOOD GAS ARTERIAL (01/03/2025 8:45 PM CDT) Only the most recent of6 resultswithin the time period is included. PH BLOOD POC 7.38 7.35 - 7.45 01/03/2025 8:45 PM T [facility] PCO2 POC 48(H) 35 - 45 mm Hg 01/03/2025 8:45 PM [facility] PO2 POC 39(LL) 80 - 105 mm Hg 01/03/2025 8:45 PM [facility] HCO3 (CALC) POC 28(H) 22 - 26 mmol/L 01/03/2025 8:45 PM [facility] HEMOGLOBIN POC 11.6(L) 12.0 - 18.0 g/dL 01/03/2025 8:45 PM [facility] BASE EXCESS POC 3 -2 - 3 mmol/L 01/03/2025 8:45 PM [facility] O2 SATURATION POC 67(L) 95 - 98 % 01/03/2025 8:45 PM T [facility] SODIUM POC 135(L) 138 - 146 mmol/L 01/03/2025 8:45 PM [facility] POTASSIUM POC 3.6 3.5 - 4.9 mmol/L 01/03/2025 8:45 PM [facility] HEMATOCRIT POC 35(L) 38 - 51 % 01/03/2025 8:45 PM T [facility] PH TEMP CORRECT 7.38 7.35 - 7.45 01/03/2025 8:45 PM CDT [facility] PCO2 TEMP CORRECT 48(H) 35 - 45 mm Hg 01/03/2025 8:45 PM CDT [facility] PO2 TEMP CORRECT 39(LL) 80 - 105 mm Hg 01/03/2025 8:45 PM CDT [facility] SPECIMEN SOURCE, GASES POC Arterial 01/03/2025 8:45 PM CDT [facility] CRITICALTO POC QUIRINO LOAN DO 01/03/2025 8:45 PM CDT [facility] NAME POC [id number]$ 01/03/2025 8:45 PM CDT [facility] RESULTS POC Y 01/03/2025 8:45 PM CDT [facility] TIME POC 204401/03/2025 8:45 PM CDT [facility] CALCIUM IONIZED POC 4.8 4.8 - 5.2 mg/dL 01/03/2025 8:45 PM CDT [facility] TCO2 (CALC) POC 30(H) 23 - 27 mmol/L 01/03/2025 8:45 PM CDT [facility] PUNC SITE POC No Charge 01/03/2025 8:45 PM CDT [facility] PATIENT'S TEMPERATURE POC 37.0 degrees 01/03/2025 8:45 PM CDT [facility] Blood, arterial 01/03/2025 8 :45 PM CDT 01/03/2025 8:51 PM CDT us Quirino Loan DO ABG ORDERABLES Final Result [facility] CLIA # [id number] [facility] [address] [address] [place] [address] * XR CHEST PA AND LATERAL 2 [...] nucleic acids detected. 01/03/2025 8:52 PM CDT [facility] COVID-19 PCR NOT DETECTED Not Detected 01/03/2025 8:52 PM CDT [facility] Upper Respiratory ENTIRE NASOPHARYNX / Unknown Collection / Unknown 01/03/2025 7:44 PM CDT 01/03/2025 7:50 PM CDT Narrative [facility] - 01/03/2025 8:52 PM CDT The Film [...] pertussis Bordetella parapertussis Chlamydophila pneumoniae Mycoplasma pneumoniae [facility] MICROBIOLOGY - GENERAL ORDERABL ES Final Result Performing Organization Address [facility]/ZIP Co de Phone Number [facility] CLIA # [id number] [address] [address] [place] [address] * EXTRA TUBE (BLUE) (01/03/2025 7:43 PM CDT) Blood Venipuncture / Unknown 01/03/2025 7:43 PM CDT 01/03/2025 7:53 PM CDT [facility] HEMATOLOGY ORDERABLES Final Res ult Performing Organization Address [facility] de Phone Number [facility] CLIA # [id number] [address] [address] [place] [address] * BLOOD CULTURE (01/03/2025 7:43 PM CDT) Only the most recent of7 resultswithin the time period is included. BLOOD CULTURE No growth 01/08/2025 9:27 PM CDT [facility] Blood (Peripheral) Venipuncture / Unknown 01/03/2025 7:43 PM CDT 01/03/2025 7:50 PM CDT [facility] MICROBIOLOGY - GENERAL ORDERABL ES Final Result Performing Organization Address [facility] de Phone Number [facility] CLIA # [id number] [address] [place] [address] * US DOPPLER VENOUS ARM LEFT (12/28/2024 11:52 AM CDT) Anatomical Region Laterality Modality Upper Extremity Ultrasound 12/28/2024 11:3 9 AM CDT Narrative 12/28/2024 3:22 PM CDT [facility] Cardiovascular Services Noninvasive Vascular Laboratory [address] [place] [address] Noninvasive Vascular Lab Venous Exam Limited Upper Extremity Duplex Patient: Le Diaz Study ID: US DOPPLER VENOU Gender: F : 1965 Age: 59 Room: Height: Weight: BSA: Pt status: Emergency Study Date: 12/28/2024 Study Time: 11:39:58 AM BSA: Ordering: Luzma Romero Interpreting:Prince Luana Heat Set Operator: ROCHELLE Indications: Extremity Edema. Summary Impression: 1. [...] 1200 - SVT cephalic and basilic vein [facility] Vascular Lab is accredited with the Intersocietal Commission for the Accreditation of Vascular Laboratories (ICAVL) Prepared and Electronically Authenticated Prince Luana Confirmed 12/28/2024 15:22 Procedure Note Prince Craft MD - 12/28/2024 [facility] Cardiovascular Services Noninvasive Vascular Laboratory [address] [place] [address] Noninvasive Vascular Lab Venous Exam Limited Upper Extremity Duplex Patient: Le Diaz Study ID: US DOPPLER ERICKOU Gender: F : 1965 Age: 59 Room: Height: Weight: BSA: Pt status: Emergency Study Date: 12/28/2024 Study Time: 11:39:58 AM BSA: Ordering: Luzma Romero Interpreting:Prince Luana Heat Set Operator: ROCHELLE Indications: Extremity Edema. Summary Impression: 1. [...] 1200 - SVT cephalic and basilic vein [facility] Vascular Lab is accredited with theIntersocietal Commission for the Accreditation of Vascular Laboratories (ICAVL) Prepared and Electronically Authenticated Prince Lele Craft 12/28/2024 15:22 us Luzma Romero DO US [...] 8:54 AM CDT) Only the most recent of4 resultswithin the time period is included. COVID-19 PCR NOT DETECTED Not Detected 12/29/19 11:52 AM [facility] Influenza A by PCR NOT DETECTED Not Detected 12/28/2024 11:52 AM T [facility] Influenza B by PCR NOT DETECTED Not Detected 12/28/2024 11:52 AM [facility] RSV by PCR NOT DETECTED Not Detected 12/28/2024 11:52 AM T [facility] Upper Respiratory ENTIRE NASOPHARYNX / Unknown Collection / Unknown 12/28/2024 8:54 AM CDT 12/28/2024 8:57 AM CDT [facility] - 12/28/2024 11:52 AM CDT This test [...] ORDER JANAY Final Result Performing Organization Address [facility] Co de Phone Number [facility] CLIA # [id number] [address] [address] * (ABNORMAL) TSH REFLEXIVE (12/28/2024 8:50 AM CDT) TSH 0.26(L) 0.27 - 4.20 uIU/mL 12/28/2024 9:39 AM CDT [facility] Blood Venipuncture / Unknown 12/28/2024 8:50 AM CDT 12/28/2024 8:54 AM CDT Luzma Romero DO CHEMISTRY ORDERABLES Final R esult Performing Organization Address [facility] Phone Number [facility] CLIA # [id number] [address] [address] * T3 FREE (12/28/2024 8:50 AM CDT) T3 FREE 3.7 2.3 - 4.2 pg/mL 12/29/2024 4:55 AM CDT [facility] Blood Venipuncture / Unknown 12/28/2024 8:50 AM CDT 12/28/2024 10:05 AM CDT Narrative [facility] - 12/29/2024 4:55 AM CDT Performing Organization Information: Site ID: [id number] Name: [employer] Address: [address] [address] Director: Emily Dumont MD Luzma Romero DO CHEMISTRY ORDERABLES Final R esult Performing Organization Address City/[facility] Co de Phone Number [facility] * T4 FREE (12/28/2024 8:50 AM CDT) T4 FREE 1.17 0.81 - 1.70 ng/dL 12/28/2024 10:06 AM CDT [facility] Blood Venipuncture / Unknown 12/28/2024 8:50 AM CDT 12/28/2024 8:54 AM CDT Luzma Romero DO CHEMISTRY ORDERABLES Final R ult Performing Organization Address [facility] de Phone Number [facility] CLIA # [id number] [address] [address] * (ABNORMAL) LIPASE (12/28/2024 2:31 AM CDT) Only the most recent of2 resultswithin the time period is included. LIPASE 10(L) 13 - 60 U/L 12/28/2024 9:04 AM CDT [facility] Blood Venipuncture / Unknown 12/28/2024 2:31 AM CDT 12/28/2024 2:37 AM CDT Luzma Romero DO CHEMISTRY ORDERABLES Final R esult Performing Organization Address [facility] Co de Phone Number [facility] CLIA # [id number] [address] [facility] [place] [address] * Critical Care (12/28/2024 2:16 AM CDT) [...] BOTH EYES (12/22/2024 9:40 AM CDT) Narrative [facility] OPHTHALMOLOGY ORDERS - 12/22/2024 9:40 AM CDT IOL obtained for cataract surgery Kumar Ochoa MD OPHTH ULTRASOUND Final Result Performing Organization Address [facility] Co de Phone Number [facility] OPHTHALMOLOGY ORDERS * CORNEAL TOPOGRAPHY - OU - BOTH EYES (12/22/2024 9:40 AM CDT) Kumar Ochoa MD OPHTH MAPPING Final Result Performing Organization Address City/[facility]/ZIP Co de Phone Number [facility] OPHTHALMOLOGY ORDERS * AUTO-REFRACTOR & KERATOMETER OU BOTH EYES (12/22/2024 9:40 AM CDT) Kumar Ochoa MD OPHTH CLINIC PROCEDURES Final Result Performing Organization Address [facility] Co de Phone Number [facility] OPHTHALMOLOGY ORDERS * EYE DROPS (12/22/2024 9:06 AM CDT) Narrative [facility] 12/22/2024 9:40 AM CDT Medications Eye Drops: 1 Drop phenylephrine 2.5 % Route: Topical, Site: Eye, Bilateral NDC: 02246-076-13, Lot: [id number] 1 Drop proparacaine 0.5 % Route: Topical, Site: Eye, Bilateral NDC: 31304-363-39, Lot: [id number] 1 Drop tropicamide 1 % Route: Topical, Site: Eye, Bilateral NDC: 80995-782-49, Lot: [id number] Notes Eye drop orders per protocol for Basic Operations Support Manager Eye Exam (Dilated) 1 Drop proparacaine (OPHTHAINE) 0.5% ophthalmic solution prior to tonometry 1 Drop tropicamide (MYDRIACYL) 1% ophthalmic solution 1 Drop phenylephrine (AK-DILATE, MYDFRIN) 2.5% ophthalmic solution Kumar Ochoa MD OPHTH CLINIC PROCEDURES Final Result [facility] CLIA# [id number] [address] [place] [address] * XR LUMBAR SPINE 2 OR 3 [...] Low Back Pain. Diagnosis: COPD with exacerbation (CMS/[facility]). Findings: There is a mild remote L1 [...] Low Back Pain. Diagnosis: COPD with exacerbation (CMS/[facility]). Findings: There is a mild remote L1 [...] C. DIFFICILE DETECTION (12/18/2024 1:57 AM CDT) [facility] TOXIGENIC C DIFFICILE NOT DETECTED Not Detected 12/18/2024 3:10 AM CDT [facility] Stool STOOL SPECIMEN / Unknown Collection / Unknown 12/18/2024 1:57 AM CDT 12/18/2024 2:19 AM CDT Narrative [facility] - 12/18/2024 3:10 AM CDT This assay is used to detect Toxigenic C. difficile target(B gene) DNA sequences in unformed stool specimens. If toxigenic C. difficile is not detected, but clinical suspicion is high please consult ID for consultation and potential repeat testing. This test should not be used as a test of cure. Landon Blankenship MD MICROBIOLOGY - [facility] AL ORDERABLES Final Result [facility] CLIA # [id number] [address] [place] [address] [place] [address] * MANUAL DIFFERENTIAL (12/17/2024 7:23 PM CDT) Only the most recent of2 resultswithin the time period is included. [facility] PLATELET EST. Adequate 12/17/2024 8:26 PM CDT [facility] ANISOCYTOSIS 1+ /hpf 12/17/2024 8:26 PM CDT [facility] COTTON-JOLLY BODIES Present /hpf 12/17/2024 8:26 PM CDT [facility] Blood Venipuncture / Unknown 12/17/2024 7:23 PM CDT 12/17/2024 7:33 PM CDT Bala Prieto MD HEMATOLOGY ORDERABLES COM Fi nal Result Performing Organization Address [facility] Co de Phone Number [facility] CLIA # [id number] [address] [address] [place] [address] * (ABNORMAL) TROPONIN (12/17/2024 7:23 PM CDT) TROPONIN T, 5TH GEN 20(H) <=10 ng/L 12/17/2024 8:06 PM CDT [facility] Comment:Hemolysis can falsel y decrease Troponin quantitation. Blood Venipuncture / Unknown 12/17/2024 7:23 PM CDT 12/17/2024 7:33 PM CDT Narrative [facility] - 12/17/2024 8:06 PM CDT Troponin elevated. Bala Prieto MD CHEMISTRY ORDERABLES Final R esult Performing Organization Address [facility] Co de Phone Number [facility] CLIA # [id number] [address] [address] * EYE DROPS (12/16/2024 2:39 PM CDT) Narrative [facility] - 12/16/2024 2:39 PM CDT Medications Eye Drops: 2 Drop hydroxypropyl methylcellulose (GONAK) 2.5% ophthalmic solution Route: Right Eye [facility]: 10354-152-84, Lot: [id number], Expiration date: 03/23/2026 2 Drop proparacaine (OPHTHAINE) 0.5% ophthalmic solution Route: Right Eye NDC: 77270-648-25, Lot: [id number], Expiration date: 10/19/2025 1 Drop sodium borate-boric acid-sodium chloride-water eye wash solution Route: Right Eye ND: 9055-7747-20, Lot: [id number], Expiration date: 01/19/2026 Notes Eye drop orders per protocol for B Scan Administer the following medications approximately 1 minute apart into the procedural/operative/affected eye 3 drops of proparacaine (OPHTHAINE) 0.5% ophthalmic solution 1 drop artificial tear (GENTEAL) 0.3% ophthalmic gel (SYSTANE) Eduardo Craven MD [facility] CLINIC PROCEDURES Fin al Result Performing Organization Address [facility] Co de Phone Number [facility] CLIA# [id number] [address] [address] * B-SCAN ULTRASOUND - OD - RIGHT EYE (12/16/2024 2:39 PM CDT) Narrative [facility] OPHTHALMOLOGY ORDERS - 12/16/2024 2:39 PM CDT Retinal detachment us Eduardo Craven MD OPH ULTRASOUND Final Resu lt Performing Organization Address City/[facility]/ZIP Co de Phone Number [facility] OPHTHALMOLOGY ORDERS * EYE DROPS (12/16/2024 2:38 PM CDT) Narrative [facility] - 12/16/2024 2:38 PM CDT Medications Eye Drops: 1 Drop phenylephrine 2.5 % Route: Topical ND: 92597-525-65, Lot: [id number], Expiration date: 08/21/2025 1 Drop proparacaine 0.5 % Route: Topical NDC: 97037-182-81, Lot: [id number], Expiration date: 07/21/2026 1 Drop tropicamide 1 % Route: Topical [facility]: 38662-070-05, Lot: [id number], Expiration date: 06/21/2026 Notes Eye drop orders per protocol for Basic Operations Support Manager Eye Exam (Dilated) 1 Drop proparacaine (OPHTHAINE) 0.5% ophthalmic solution prior to tonometry 1 Drop tropicamide (MYDRIACYL) 1% ophthalmic solution 1 Drop phenylephrine (AK-DILATE, MYDFRIN) 2.5% ophthalmic solution Eduardo Craven MD OPHTH CLINIC PROCEDURES Fin al Result Performing Organization Address [facility] Co de Phone Number [facility] OPHTHALMOLOGY-[facility] CLIA# [id number] [address] [place] [address] * OCT, RETINA - OU - BOTH EYES (12/16/2024 1:53 PM CDT) Narrative [facility] OPHTHALMOLOGY ORDERS - 12/16/2024 1:53 PM CDT Right Eye Quality was good. Left Eye Quality was good. Notes Optical Coherence Tomography ordered to evaluate the status of the macula: Right Eye: no view Left Eye: Good contour, no fluid.' Eduardo Craven MD OPHTH TOMOGRAPHY Final Resu lt Performing Organization Address [facility] Co de Phone Number [facility] OPHTHALMOLOGY ORDERS * (ABNORMAL) DRUG SCREEN, URINE (12/12/2024 6:02 PM CDT) AMPHETAMINE QUAL, URINE Negative Negative 12/12/2024 6:53 PM CDT [facility] BARBITURATE QUAL, URINE Negative Negative 12/12/2024 6:53 PM CDT [facility] BENZODIAZEPINE QUAL, URINE Negative Negative 12/12/2024 6:53 PM CDT [facility] COCAINE QUAL URINE Negative Negative 12/12/2024 6:53 PM CDT [facility] OPIATE QUAL, URINE Presumptive Positive(A) Negative 12/12/2024 6:53 PM CDT [facility] CANNABINOIDS QUAL, URINE Negative Negative 12/12/2024 6:53 PM CDT [facility] OXYCODONE QUAL, URINE Negative Negative 12/12/2024 6:53 PM CDT [facility] METHADONE QUAL, URINE Negative Negative 12/12/2024 6:53 PM CDT [facility] FENTANYL QUAL, URINE Negative Negative 12/12/2024 6:53 PM CDT [facility] CREATININE, URINE 127.1 29.0 - 226.0 mg/dL 12/12/2024 6:53 PM CDT [facility] Comment:Reference Range vari es with fluid intake and diet. Urine URINE SPECIMEN OBTAINED BY CLEAN CATCH PROCEDURE / Unknown Collection / Unknown 12/12/2024 6:02 PM CDT 12/12/2024 6:10 PM CDT Narrative [facility] - 12/12/2024 6:53 PM CDT This [...] Otis Chen MD URINE ORDERABLES Final Result [facility] # [id number] [address] [place] [address] * CT HEAD WO CONTRAST (12/12/2024 3:11 [...] fluid level. No calvarial fracture. Procedure Note GeremiasTarik MD - 12/12/2024 EXAM: CT HEAD WO [...] INTERFACE SYSTEM - 12/12/2024 9:11 PM CDT [facility] Cardiovascular Services Echocardiography Laboratory [facility] [place] [address] Transthoracic Echocardiography Patient: Le Diaz Study ID: ECHO COMPLETE - Gender: F : 1965 Age: 59 Room: [facility] Study Date: 12/12/2024 Pt Status: Inpatient Study Time: 12:47:40 PM CSN #: [id number] Ordering:Otis Chen Heat Set Operator: MONTY Indications and History: Syncope. Summary and [...] (H) dottie values outside specified reference range. [facility] Echo Labs are accredited with the Intersocietal Accreditation Commission - Echocardiography. Prepared and Electronically Authenticated Toni Leija Confirmed 12/12/2024 21:11 Procedure Note Toni Leija MD - 12/12/2024 [facility] Cardiovascular Services Echocardiography Laboratory [facility] [place] [address] Transthoracic Echocardiography Patient: Le Diaz Study ID: ECHOCOMPLETE - Gender: F : 1965 Age: 59 Room: [facility] Study Date: 12/12/2024 Pt Status: Inpatient Study Time: 12:47:40 PM CSN #: [id number] Ordering:Otis Chen Heat Set Operator: MONTY Indications and History: Syncope. Summary and [...] (H) dottie values outside specified reference range. [facility] Echo Labs are accredited with theIntersocietal Accreditation Commission - Echocardiography. Prepared and Electronically Authenticated Toni Leija Confirmed 12/12/2024 21:11 us Otis Chen MD US ORDERABLES Final Result Performing Organization Address City/[facility] Co de Phone Number INTERFACE SYSTEM Refer to clinic/hospital department * (ABNORMAL) UNFRACTIONATED HEPARIN MONITORING (12/12/2024 3:21 AM CDT) Only the most recent of6 resultswithin the time period is included. ANTI-XA UNFRAC HEP 0.96(HH) See Interpretation IU/mL 12/12/2024 3:50 AM CDT [facility] Blood Venipuncture / Unknown 12/12/2024 3:21 AM CDT 12/12/2024 3:26 AM CDT Narrative [facility] - 12/12/2024 3:50 AM CDT Therapeutic Range: PT/DVT Heparin Protocol 0.3 - 0.7 IU/ml Cardiac Heparin Protocol 0.3 - 0.6 IU/ml The reference range for this test is specific to the anticoagulant and is not appropriate for monitoring patients on a DOAC protocol. us Otis Chen MD HEMATOLOGY ORDERABLES Final Res ult Performing Organization Address [facility] de Phone Number [facility] CLIA # [id number] [address] [place] [address] * PHOSPHORUS (12/11/2024 5:44 AM CDT) Only the most recent of2 resultswithin the time period is included. PHOSPHORUS 2.7 2.5 - 4.5 mg/dL 12/11/2024 6:43 AM CDT [facility] Blood Venipuncture / Unknown 12/11/2024 5:44 AM CDT 12/11/2024 6:03 AM CDT us Otis Chen MD CHEMISTRY ORDERABLES Final Resu lt Performing Organization Address City/[facility] Co de Phone Number [facility] CLIA # [id number] [address] [address] [place] [address] * PTT (12/10/2024 3:37 PM CDT) Only the most recent of3 resultswithin the time period is included. PTT 26.7 24.8 - 37.2 seconds 12/10/2024 4:58 PM CDT [facility] Blood Venipuncture / Unknown 12/10/2024 3:37 PM CDT 12/10/2024 4:35 PM CDT Narrative [facility] - 12/10/2024 4:58 PM CDT Therapeutic Range: Hi-level PE/DVT heparin protocol 80.1 - 95.0 sec Lo-level PE/DVT heparin protocol 70.1 - 85.0 sec Cardiac Heparin Protocol 70.1 - 100.0 sec us Otis Chen MD HEMATOLOGY ORDERABLES Final Res ult Performing Organization Address [facility] Co de Phone Number [facility] CLIA # [id number] [address] [address] [place], [place] [address] * EXTRA TUBE (URINE [place]) (12/10/2024 1:25 AM CDT) Only the most recent of3 resultswithin the time period is included. Urine URINE SPECIMEN OBTAINED BY CLEAN CATCH PROCEDURE / Unknown Collection / Unknown 12/10/2024 1:25 AM CDT 12/10/2024 1:30 AM CDT us Nicolle Vo NP URINE ORDERABLES Final Result Performing Organization Address [facility] Co de Phone Number [facility] CLIA # [id number] [address] [facility] [place] [address] * (ABNORMAL) URINALYSIS WITH REFLEX MICROSCOPIC (12/10/2024 1:25 AM CDT) Only the most recent of3 resultswithin the time period is included. COLOR UA Pale Yellow Pale to Dark Yellow 12/10/2024 1:51 AM [facility] CLARITY UA Clear Clear 12/10/2024 1:51 AM [facility] SPECIFIC GRAVITY UA 1.020 1.003 - 1.035 12/10/2024 1:51 AM [facility] PH UA 5.5 5.0 - 8.0 12/10/2024 1:51 AM [facility] LEUKOCYTE ESTERASE UA Negative Negative 12/10/2024 1:51 AM [facility] NITRITE UA Negative Negative 12/10/2024 1:51 AM [facility] PROTEIN UA Trace(A) Negative 12/10/2024 1:51 AM [facility] GLUCOSE UA 2+(A) Negative 12/10/2024 1:51 AM [facility] KETONES UA Negative Negative 12/10/2024 1:51 AM [facility] UROBILINOGEN UA 0.2 <2.0 mg/dL 1:51 AM [facility] BILIRUBIN UA Negative Negative 12/10/2024 1:51 AM [facility] BLOOD UA Negative Negative 12/10/2024 1:51 AM [facility] WBC UA 11-25(A) 0 - 2 /hpf 12/10/2024 1:51 AM [facility] RBC UA 3-5(A) 0 - 2 /hpf 12/10/2024 1:51 AM [facility] BACTERIA UA 3+(A) Negative /hpf 12/10/2024 1:51 AM [facility] EPITHELIAL CELLS, URINE 0-5 0 - 5 /hpf 12/10/2024 1:51 AM [facility] Urine URINE SPECIMEN OBTAINED BY CLEAN CATCH PROCEDURE / Unknown Collection / Unknown 12/10/2024 1:25 AM CDT 12/10/2024 1:30 AM CDT us Nicolle Vo NP URINE ORDERABLES Final Result [facility] LABORATORY [facility] CLIA # [id number] [address] [place] [address] * CARDIAC EVENT MONITOR (12/07/2024 1:50 PM CDT) Narrative [facility] - 12/07/2024 1:50 PM CDT Echo Tapia MD 12/07/2024 1:50 PM Baseline: sinus 73 bpm Only tracing us James Lee MD CARDIAC SERVICES ORDERABLES Fin al Result Performing Organization Address [facility] Co de Phone Number [facility] CLIA [id number] [address] [facility] [address] [place] [phone], * MRI LUMBAR WO CONTRAST (11/30/2024 5:44 [...] PM CDT Narrative 11/23/2024 9:28 AM CDT [facility] Cardiovascular Services Noninvasive Vascular Laboratory [address] [place] [address] Noninvasive Vascular Lab Venous Exam Unilateral Lower Extremity Duplex Patient: Le Diaz Study ID: US VENOUS DOPPLE Gender: F : 1965 Age: 59 Room: Height: Weight: BSA: Pt status: Inpatient Study Date: 11/22/2024 Study Time: 02:22:45 PM BSA: Ordering: Michael Blank Interpreting:Kyler Anne Heat Set Operator: CORKY Indications: DVT. Summary Impression: No evidence [...] Patent; Normal phasicity; spontaneous; compressible; normal augmentation [facility] Vascular Lab is accredited with the Intersocietal Commission for the Accreditation of Vascular Laboratories (ICAVL) Prepared and Electronically Authenticated Kyler Anne 11/23/2024 09:28 Procedure Note Kyler Anne MD - 11/23/2024 [facility] Cardiovascular Services Noninvasive Vascular Laboratory [address] [id number] Noninvasive Vascular Lab Venous Exam Unilateral Lower Extremity Duplex Patient: Le Diaz Study ID: US VENOUS DOPPLE Gender: F : 1965 Age: 59 Room: Height: Weight: BSA: Pt status: Inpatient Study Date: 11/22/2024 Study Time: 02:22:45 PM BSA: Ordering: Michael Blank Interpreting:Kyler Anne Heat Set Operator: CORKY Indications: DVT. Summary Impression: No evidence [...] femoral Patent; Normal phasicity; spontaneous;compressible; normal augmentation [facility] Vascular Lab is accredited with theIntersocietal Commission for the Accreditation of Vascular Laboratories (ICAVL) Prepared and Electronically Authenticated Kyler Anne Confirmed 11/23/2024 09:28 us Michael Blank MD ORDERABLES Final Result * XR SHOULDER 2+ [...] - 145 ug/dL 11/21/2024 11:54 PM CDT [facility] TIBC 289 250 - 450 ug/dL 11/21/2024 11:54 PM CDT [facility] IRON % SATURATION 15 15 - 60 % 11/21/2024 11:54 PM CDT [facility] Blood Venipuncture / Unknown 11/21/2024 7:37 PM CDT 11/21/2024 7:57 PM CDT Derrick Maldonado MD CHEMISTRY ORDERABLES Final R esult [facility] CLIA # [id number] [address] [facility] [place] [address] * XR HIP 2 OR 3 VIEWS [...] soft tissues appear grossly unremarkable. Procedure Note eMir Chawla, DO - 11/18/2024 Exam: XR HIP 2 [...] MRSA not detected 11/14/2024 10:11 AM CDT [facility] Surveillance ANTERIOR NARES SWAB / Unknown Collection / Unknown 11/14/2024 8:47 AM CDT 11/14/2024 8:52 AM CDT Narrative [facility] - 11/14/2024 10:11 AM CDT This assay is used to detect Methicillin-Resistant S. aureus (MRSA) colonization of the nares. PLEASE NOTE: This test has not been approved to monitor effectiveness of MRSA decolonization. Residual DNA may temporarily be present after successful decolonization. This test was performed using an FDA approved screening methodology. Curly Loaiza DO MICROBIOLOGY - GENE RAL ORDERABLES Final Result [facility] CLIA # [id number] [address] [place] [address] * CTA CHEST + ABD/PEL W CONTRAST [...] No acute fracture or traumatic malalignment. Pablo Kim McTeer FILTER OPERATOR CT ORDERABLES Final R esult * KETONES/BETA HYDROXYBUTYRATE (11/13/2024 11:04 AM CDT) BETA HYDROXYBUTYRATE 0.2 0.0 - 0.3 mmol/L 11/13/2024 12:52 PM CDT [facility] Blood Venipuncture / Unknown 11/13/2024 11:04 AM CDT 11/13/2024 11:12 AM CDT Elizabeth Elizabeth MD CHEMISTRY ORDERABLES Final Re sult [facility] CLIA # [id number] [facility] [address] [place] [address] * XR FEMUR 2 VW BILAT (11/11/2024 [...] carpometacarpal joint. Aki Booth DO DIAGNOSTIC IMAGING ORDRoman STUART Final Result * XR TIBIA AND [...] abnormalities of the right tibia and fibula. us Aki Booth DO DIAGNOSTIC IMAGING ORDE RABLES Final Result * Critical Care (11/05/2024 4:16 [...] - 295 mOsm/kg 11/01/2024 10:03 PM CDT [facility] Blood Venipuncture / Unknown 11/01/2024 9:10 PM CDT 11/01/2024 9:30 PM CDT us Li Anderson MD CHEMISTRY ORDERABLES Jana flores Result Performing Organization Address [facility] Co de Phone Number [facility] CLIA # [id number] [address] [facility] [place], [place] [address] * US CAROTID DOPPLER (11/01/2024 8:04 AM CDT) Anatomical Region Laterality Modality Neck Ultrasound 11/01/2024 7:32 AM CDT Narrative 11/01/2024 9:00 AM CDT [facility] Cardiovascular Services Noninvasive Vascular Laboratory [address] [place] [address] Noninvasive Vascular Lab Cerebrovascular Exam Carotid Duplex Patient: Le Diaz Study ID: US CAROTID DOPPL Gender: F : 1965 Age: 59 Room: [facility] Height: 162.6cm Weight: 97kg BSA: 2.14m^2 Pt status: Inpatient Study Date: 11/01/2024 Study Time: 07:32:50 AM BSA: 2.14m^2 Ordering: Danyell Dewitt Interpreting:Lm Zimmerman Heat Set Operator: Jerson Nuñez Indications: Syncope. Summary Mild plaque [...] !Proximal ICA/prox CCA!0.68 !0.53 ! + +-----+-----+ [facility] Vascular Lab is accredited with the Intersocietal Commission for the Accreditation of Vascular Laboratories (ICAVL) Prepared and Electronically Authenticated Lm Zimmerman Confirmed 11/01/2024 09:00 Procedure Note Lm Zimmerman MD - 11/01/2024 [facility] Cardiovascular Services Noninvasive Vascular Laboratory [address] [place] [address] Noninvasive Vascular Lab Cerebrovascular Exam Carotid Duplex Patient: Le Diaz Study ID: US CAROTID DOPPL Gender: F : 1965 Age: 59 Room: [facility] Height: 162.6cm Weight: 97kg BSA: 2.14m^2 Pt status: Inpatient Study Date: 11/01/2024 Study Time: 07:32:50 AM BSA: 2.14m^2 Ordering: Danyell Dewitt Interpreting:Lm Zimmerman Heat Set Operator: Jerson Nuñez Indications: Syncope. Summary Mild plaque [...] !Proximal ICA/prox CCA!0.68 !0.53 ! + +-----+-----+ [facility] is accredited with theIntersocietal Commission for the Accreditation of Vascular Laboratories (ICAVL) Prepared and Electronically Authenticated Lm Zimmerman Confirmed 11/01/2024 09:00 Danyell Dewitt MD US ORDERABLES Final Resul t * (ABNORMAL) HEMOGLOBIN A1C (10/31/2024 3:08 AM CDT) HEMOGLOBIN A1C 10.4(H) <=5.6 % 11/02/2024 10:13 AM CDT [facility] EST. AVG GLUCOSE, A1C 252 mg/dL 11/02/2024 10:13 AM CDT [facility] Blood Venipuncture / Unknown 10/31/2024 3:08 AM CDT 10/31/2024 3:13 AM CDT Narrative [facility] - 11/02/2024 10:13 AM CDT HGB A1C INTERPRETATION NORMAL: <5.7% PRE-DIABETES: 5.7 - 6.4% DIABETES: 6.5% OR GREATER Danyell Dewitt MD CHEMISTRY ORDERABLES Final Result [facility] CLIA # [id number] [address] [address] [place] [address] * US ABDOMEN LIMITED (10/28/2024 10:54 AM [...] sonographic Heath's sign was documented by the brand leader. Common bile duct: No dilation of the [...] sonographic Heath's sign was documented by the brand leader. Common bile duct: No dilation of the [...] FUNCTION PANEL (10/28/2024 5:37 AM CDT) Pathologist [facility] TOTAL PROTEIN 7.2 6.4 - 8.3 g/dL 10/28/2024 10:03 AM CDT [facility] ALBUMIN 4.0 3.5 - 5.2 g/dL 10/28/2024 10:03 AM CDT [facility] BILIRUBIN TOTAL 0.3 0.0 - 1.0 mg/dL 10/28/2024 10:03 AM CDT [facility] BILIRUBIN DIRECT 0.1 0.0 - 0.3 mg/dL 10/28/2024 10:03 AM CDT [facility] Comment:Hemolyzed: Result ma y be falsely decreased. ALKALINE PHOSPHATASE 131(H) 35 - 104 U/L 10/28/2024 10:03 AM CDT [facility] AST 15 10 - 35 U/L 10/28/2024 10:03 AM CDT [facility] ALT 24 <=35 U/L 10/28/2024 10:03 AM CDT [facility] Blood Venipuncture / Unknown 10/28/2024 5:37 AM CDT 10/28/2024 5:46 AM CDT us Nani Borges MD CHEMISTRY ORDERABLES Fin al Result [facility] # [id number] [address] [place] [address] * CT ABDOMEN PELVIS W CONTRAST (10/20/2024 [...] to prior. Otherwise chronic changes. MACRO: None us Kay Majano MD CT ORDERABLES Jana l Result * (ABNORMAL) LIPID PANEL (02/19/2024 5:29 AM EMBEDDED DEVELOPER) CHOLESTEROL 188 <200 mg/dL 02/19/2024 10:25 AM [facility] Lexity [facility] TRIGLYCERIDE 104 <150 mg/dL 02/19/2024 10:25 AM [facility] HDL 36(L) 40 - 59 mg/dL 02/19/2024 10:25 AM [facility] LDL CALCULATED 131(H) <100 mg/dL 02/19/2024 10:25 AM [facility] NON-HDL CHOLESTEROL 152(H) <130 mg/dL 02/19/2024 10:25 AM [facility] Blood Venipuncture / Unknown 02/19/2024 5:29 AM EMBEDDED DEVELOPER 02/19/2024 5:34 AM EMBEDDED DEVELOPER Narrative [facility] - 02/19/2024 10:25 AM EMBEDDED DEVELOPER TOTAL CHOLESTEROL mg/dL Desirable <200 Borderline high [...] Artis MD CHEMISTRY ORDERABLES Final R esult [facility] CLIA # [id number] [facility] [id number] * MICROALBUMIN/CREATININE RATIO, RANDOM UR (02/26/2023 3:01 PM EMBEDDED DEVELOPER) Creatinine, Urine 199 20 - 275 mg/dL [...] category. FASTING:UNKNOWN FASTING: UNKNOWN Test Performed at: [facility] [address], [place] [address] Emily Dumont MD Urine URINE SPECIMEN OBTAINED BY CLEAN CATCH PROCEDURE / Unknown 02/26/2023 3:01 PM EMBEDDED DEVELOPER 02/26/2023 3:02 PM EMBEDDED DEVELOPER Ryann Burk MD URINE ORDERABLES Final Result [facility] [phone] [facility] [address] [place] [address] * CERV/VAG CYTO SCREEN PAP W/HPV (01/06/2023 12:00 AM CDT) CLINICAL INFORMATION [facility] Comment:None given LAST MENSTRUAL PERIOD [facility] Comment:NONE GIVEN PREV PAP: [facility] Comment:NONE GIVEN PREV BX: [facility] Comment:NONE GIVEN SOURCE [facility] Comment:ENDOCERVIX ADEQUACY: [facility] Comment: Satisfactory for evaluation. Endocervical/transformation zone component present. Age and/or menstrual status not provided PAP INTERP [facility] Comment: Cytology Results: Negative for intraepithelial lesion or malignancy. COMMENT (PAP TEST) [facility] Comment: This Pap test has been evaluated with computer assisted technology. CAR CLERK PULLMAN: Irving [place] Comment: DELANO SUH(ASCP) CT screening location: [place] [address] [place] [address] EXPLANATORY NOTE [facility] Comment: EXPLANATORY NOTE: The Pap is [...] information. HPV E6/E7 Not Detected Not Detected [facility] Comment: Methodology: House Wrecker-Mediated Amplification This assay detects E6/E7 viral messenger RNA (mRNA) from 14 high-risk HPV types (16,18,31,33,35,39,45,51,52,56,58,59,66,68). Cervical sources are required for HPV testing. If a vaginal source from a patient who has had a total hysterectomy with removal of cervix was submitted, please contact the testing laboratory for alternative testing options. For additional information, please refer to http://education.Plexxi/faq/KVK818d6 (This link if provided for information/ educational purposes only.) Test Performed at: [facility] [address] [place] [address] Emily TRAN Genital SWAB OF ENDOCERVIX / Unknown 01/06/2023 01/08/2023 10:07 AM CDT us Ryann Burk MD PATHOLOGY/CYTOLOGY ORDERABLES Fi nal Result [facility] [phone] [facility] [address] [place] [address] * MAMMO DIAGNOSTIC UNI RIGHT W OR [...] of Phone Billing Address Personal/Family [address] [place] [address] RX INFOCROSSING Medicaid MEDICAID [facility] Advance Directives For more information, please contact: [phone] Documents on File Type Date Recorded Patient Dye Range Feeder Expl anation Advance Directive Living Will 12/14/2024 [...] on File) Date Activated Date Inactivated Comments 01/08/2025 4:37 AM 01/09/2025 2:36 PM * Full Code Date Activated Date Inactivated Comments 01/04/2025 11:00 AM 01/06/2025 5:13 PM * Default Full Code - Needs Discussion Date Activated Date Inactivated Comments 12/28/2024 8:07 AM 12/29/2024 2:14 PM * Full Code Date Activated Date Inactivated Comments 12/18/2024 1:42 AM 12/19/2024 3:03 PM * Full Code Date Activated Date Inactivated Comments 12/17/2024 11:10 PM 12/18/2024 1:42 AM Care Teams Ski Base Trimmer Relationship Specialty Start Date End Date Delta Wade MD [address] [address] PCP - General Family Practice 03/25/24
--- OUTSIDE RECORDS SUMMARY | 2025-01-15 13:43 | XMS_ITS | Patient Health Record ---
Author Organization [facility] Address [address] [place] [address] Care Team Providers Care Data Administrator Name Role Phone Delta Wade Primary Care Provider Unavailabl Jose Cruz Callejas Unavailable [phone] Gregorio Montes Unavailable [phone] Masoud Bello Unavailable [phone] Acacia Gaines Unavailable [phone] Chantelle Yee Unavailable [phone] Hannah Rai Unavailable [phone] Allergies Allergen (clinical drug ingredient) Drug/Non Drug Allergy documented on EMR Reaction Allergy Type Onset Date Status Compazine Unknown Drug Allergy Active ketorolac Ketorolac Unknown Drug Allergy Active Results Component Value Reference Range Notes Schedule Confirmation Reviewed date:07/04/2024 04:08:48 PM Interpretation: Performing Lab: Notes/Report: CT Chest ION Endoluminal Schedule Confirmation Reviewed date:07/03/2024 04:23:35 PM Interpretation: Performing Lab: Notes/Report: CT Chest ION Endoluminal zzzHeart Cath Lt poss PTCA Reviewed date:05/16/2024 05:08:19 PM Interpretation: Performing Lab: Notes/Report: [id number] Schedule Confirmation Reviewed date:05/16/2024 05:08:19 PM Interpretation: Performing Lab: Notes/Report: Heart Cath Lt poss PTCA Schedule Confirmation Reviewed date:05/16/2024 05:08:19 PM Interpretation: Performing Lab: Notes/Report: Heart Cath Lt poss PTCA Partial Thromboplastin Time 95420 Reviewed date:05/16/2024 05:08:19 PM Interpretation: Performing Lab: Notes/Report: trop 2nd@ 205 3510 @ 0021 3510 @ 0021 PTT 27.1 22.6-31.8 SEC Therapeutic Range: 60-100. Critical Value Starting at > 100. Prothrombin Time 27967 Reviewed date:05/16/2024 05:08:19 PM Interpretation: Performing Lab: Notes/Report: trop 2nd@ 3510 @ 0021 3510 @ 0021 ProTime 10.8 9.1-11.9 SEC Normal Range: 9.1-11.9 INR 1.02 .90-1.20 Therapeutic Range: 2.0-3.0 Therapaeutic Range for heart valve replacement: 2.5-3.50 Schedule Confirmation Reviewed date:07/13/2024 07:16:00 PM Interpretation: Performing Lab: Notes/Report: CT Chest ION Endoluminal Schedule Confirmation Reviewed date:07/03/2024 04:23:35 PM Interpretation: Performing Lab: Notes/Report: CT Chest ION Endoluminal zzzHeart Cath Lt poss PTCA Reviewed date:05/16/2024 05:08:19 PM Interpretation: Performing Lab: Notes/Report: See Below For Report This report was dictated outside of the TellMi system. trop @ 3510 @ 0021 Read See Below For Report Reason For Referral Reason COPD; 06/07: 1 wk pe r Eula 06/07: Left Message SCHEDULED 06/20 @ 2:10 PM Diagnosis 1 Chronic obstructive pulmonary disease, unspecified (J44.9) Referring Provider First Name ER Referring Provider Last Name [facility] Referring Provider Speciality Emergency Medicine Referred Organization [facility] Referred Provider Jose Cruz Forde Referred Address [address] [place] [address] [address],[place], [place],[address], Referred Provider Specialty Pulmonary Di seases General [...] Date Status Comme nts Influenza (whole), CPT 33013 Inactive Unknown 01/04/2024 Administered Social History Tobacco [...] W/U Status Risk Notes Problem Tobacco user (542799521) Nicotine dependence, cigarettes, in remission (F17.211) Active confirmed Problem Ischemic cardiomyopathy (979228450) Ischemic cardiomyopathy (I25.5) Active confirmed Problem Chronic obstructive pulmonary disease (35496716) Chronic obstructive pulmonary disease, unspecified (J44.9) Active confirmed Problem Gastro-esophageal reflux disease without esophagitis (784551490) Gastro-esophageal reflux disease without esophagitis (K21.9) Active confirmed Problem C-reactive protein abnormal (257731211) Elevated C-reactive protein (CRP) (R79.82) Active confirmed Problem Solitary pulmonary nodule (017566106) Solitary pulmonary nodule (R91.1) Active confirmed Problem Long-term current use of anticoagulant (055680496) snf (current) use of anticoagulants (Z79.01) Active confirmed Problem Atherosclerotic heart disease of [place] coronary artery without angina pectoris (217465637591446) Arteriosclerosis of coronary artery (I25.10) Active confirmed Problem History of placement of stent for coronary artery disease (situation) (708051552) H/O heart artery stent (Z95.5) Active confirmed Problem Long-term current use of anticoagulant (854610498) Anticoagulated (Z79.01) Active confirmed Problem Angina (040307243) Atheroscleros is of [place] coronary artery of [place] heart with angina pectoris (I25.119) Active confirmed Problem Acute non-ST segment elevation myocardial infarction (862370152) Non-ST elevated myocardial infarction (I21.4) Active confirmed Problem History of pulmonary embolus (029943470) Hx of pulmonary embolus (Z86.711) Active confirmed Problem Coronary stent patent (828026492) Coronary stent patent (Z95.5) Active confirmed Problem Chronic respiratory failure (25798758) Chronic hypoxic respiratory failure (J96.11) Active confirmed [...] N/A Encounters Encounter Location Date Provider Diagnosis [facility] [address] [place] [address] [place] [address] 06/20/2024 Jose Cruz Forde Solitary pulmonary nodule R91.1 ; Chronic hypoxic respiratory failure J96.11 ; Nicotine dependence, cigarettes, in remission F17.211 and Shortness of breath R06.02 [facility] [address] [place] [address] 02/17/2024 Gregorio Montes [facility] [place] [address] [place] [address] 06/06/2024 Masoud Bello Other fracture of unspecified lumbar vertebra, initial encounter for closed fracture S32.008A [facility] [address] 06/30/2024 Jose Cruz Forde Assessments Encounter Date [...] remission (ICD-10 - F17.211) Patient smoked a [id number] for 45 years. She has been abstinent [...] Test Test Name Order Date Lumbosacral Spine AP/Lat-91512 5 PFT with FRC: (NO TGV) 06/20/2024 CT Chest ION Endoluminal-69801 5 Insurance Providers Payer Name Payer Address Payer Phone Subscriber Number Group Number Insured Name Patient Relationship to Insured Coverage Start Date Coverage End Date [place] Medicaid [address] [place] [address] [phone] [id number] GIANFRANCO DIAZ Self - patient is the [...]
--- OUTSIDE RECORDS SUMMARY | 2025-01-15 13:43 | XMS_ITS | CCD ---
Author Name Interface, [id number] lity Address [address] [facility] [address] [place] [address] [facility] Address [address] [place] [address] Care Team Providers Care Frame Straightener Name Role Phone Anika VALLADARES, Allen Unavailable [...]
--- OUTSIDE RECORDS SUMMARY | 2025-01-15 13:43 | XMS_ITS | Continuity of Care Document ---
Author Organization FLACA Solomon [facility] [place], [place], [facility] ([facility]) Address [address] [place] [address] Assessment Encounter Date Assessment Date Assessment LastModified by Organization Details LastModified Time 01/11/2025 01/11/2025 Patient is here today for a follow-up from the hospital. She was recently seen due to hypoxia. She reports she was frequently passing out. She was told by the provider in [facility] to stop her pain medication. She is requesting a detox of sorts to get off of her pain medication because she doesn't feel like herself while taking them. She was given #90 hydrocodone on 12/20 and she reports she no longer has these because they were taken and discarded of while she was in [facility]. She refuses a referral to pain management but requests some tramadol or something to help her detox, she told the front staff she was needing some Percocet. Her sugars have been out of control. Encouraged her to start back on her Lantus and she is given a sliding scale paper to follow for her fast acting insulin. She does not see endocrinology at this time. She has severe COPD and suffers from hypoxia frequently and coupled with her use of pain medication this is problematic. She is on 4L of oxygen continually at baseline. Advised patient this is a follow-up from her recent hospital stay and that is what will be addressed today. Not available 01/11/2025 16:36:01 Plan of Treatment Reminders Order Date Submit Date Provider Last Modified By Organization Details Last Modified Time Details Appointments OFFICE VISIT 15 2024 01:00P Pio Wade MD Not available Not available Not available Lab None recorded. Referral None recorded. Procedures None recorded. Surgeries None recorded. Imaging None recorded. Medication Orders insulin lispro (U-100) 100 unit/mL subcutane ous pen 2024 025 [facility]/Pharmacy #[id number], [address], [facility], [place], [address], 01/11/2025 16:35:18 Lantus Solostar U-100 Insulin 100 unit/mL (3 mL) subcutane ous pen 2024 025 [facility]/Pharmacy #[id number], [address] [facility], [facility], [place], [address], 01/11/2025 16:35:18 Patient TargetsNo targets recorded. Patient Instructions Encounter Date Encounter Id Patient Instructions Last Modified By Organization Details Last Modified Time 01/11/2025 [id number] hospital discharge follow up* Not available 01/11/2025 16:35:16 Call or return for questions or concerns. Not available 01/11/2025 16:33:46 Reason for Referral None Reported. Results Created Date Observation Date Name Description Value Unit Range Abnormal Flag Note LastModifiedBy Organization Detail LastModifiedTime 12/22/1912/21/2024 PT/IN R Protime 12.7 Not Available [facility] ([facility]) [address] [place] [address], [phone], 12/21/2024 09:10:20 12/22/1912/21/2024 PT/IN R INR 1.1 Not Available [facility] ([facility]) [address] [place], [address], 12/21/2024 09:10:20 01/12/2001/11/2025 hospi anamaria disch lawanda starro w up* Records Reviewed Yes Not Available [facility] ( [facility]) [address] [place] [address], [phone], 01/11/2025 16:34:22 01/12/2001/11/2025 hospi anamaria disch lawanda starro w up* Medications Reconciles Yes Not Available [facility] ([facility]) [address] [place], [address], 01/11/2025 16:34:22 Result Notes None recorded. Problems Name Problem SNOMED Code Status Onset Date Resolution Date Notes Provider Name and Address Organization Details Recorded Time Pulmonary embolism 72438469 Active 2023 JOSE moy [facility] 5 14:52:04 Coronary arterioscle rosis 70004835 Active 2023 JOSE moy [facility] 5 14:52:04 Essential hypertensio n 68016062 Active 2023 JOSE moy [facility] 5 14:52:04 Type 2 diabetes mellitus 93888127 Active 2023 JOSE moy [facility] 5 14:52:04 Mixed anxiety and depressive disorder 816688718 Active 2023 JOSE moy [facility] 5 14:52:04 Chronic osteoarthri tis 20997034 Active 2023 JOSE moy [facility] 5 14:52:04 Chronic obstructive pulmonary disease 51321828 Active 2023 JOSE moy [facility] 5 14:52:04 Pain of left shoulder joint 7688485285030 9109 Active 2023 JOSE moy [facility] 5 14:52:04 Syncope 396020638 Active 2023 JOSE moy [facility] 5 14:52:04 Edema of lower extremity 293107674 Active 2023 JOSE moy, [facility] 5 14:52:04 Urinary incontinenc e 437037423 Active 2023 JOSE moy, [facility] 5 14:52:04 Recurrent falls 040496205 Active 2023 JOSE BRIGHT null, [facility] 5 14:52:04 Gastroesoph ageal reflux disease 012070043 Active 2023 JOSE moy, [facility] 5 14:52:04 Major depressive disorder 395251885 [facility] 14:52:04 Chronic systolic heart failure 357026296 Active 2024 [facility] 14:52:04 Generalized anxiety disorder 88485115 Active 20[facility] 5 14:52:04 Chronic diastolic heart failure 626169182 Active 2024 JOSE BRIGHT null, [facility] 5 14:52:04 Closed fracture lumbar vertebra, wedge 497836843 Active 2024 YANNICK moy, [facility] 5 10:07:16 Mass of right lower lobe of lung 9714486653055 09 Active 20[facility] 5 10:07:03 Compression fracture of lumbar spine 324187341 Active [address] [facility] 5 14:30:37 Supraventri cular tachycardia 0166191 Active [address] [facility] 5 14:30:29 Abdominal pain 56221082 Active 2024 [facility] NAYA [facility] 5 17:07:23 Chronic constipatio n 676122381 Active 2024 [facility] NAYA [facility] 5 17:07:18 Problem Notes None recorded. Procedures Surgical History Date Name Laterality Status Provider Name and Address Organization Details Recorded Time Splenectomy completed Sonal Hollis [facility] 08/14/2023 11:39:32 Imaging Results None recorded. Procedure Notes None recorded. Medical Equipment None Reported. Allergies Allergen ID Allergen Name Allergen Category Reaction Reaction Severity Criticality Documentation Date Start Date Code Code System Note Provider Name and Address Organization Details Recorded Time 69798 Compazine medicatio n myalgias (muscle pain) moderate low 10/19/2022 [address] [facility] 4 10:30:07 92515 Darvocet- N medicatio n hives mild low 06/20/[address] [facility] 4 10:30:27 84067 Toradol medicatio n hives Not available Not available 08/21/[address] [facility] 4 16:04:49 Medications Name Sig Start Date Stop Date Status Note LastModified by Organization Details LastModified Time Prescriptio n - Renewal active Not Available Not Available Not Available nebulizer compressor system [id number] USE DIRECTED 01/11 completed Not Available Not Available Not Available fluoxetine 40 mg capsule TAKE 1 [...] 1 DAILY FOR 5 DAYS THEN STOP 01/11 completed Not Available Not Available Not Available doxycycline hyclate 100 mg capsule TAKE 1 CAPSULE BY MOUTH TWICE A DAY 01/11 completed Not Available Not Available Not Available [...] MEALS AND AT BEDTIME FOR 7 DAYS 01/11 completed Not Available Not Available Not Available meloxicam 15 mg tablet TAKE ONE [...] AREA TWICE A DAY FOR 4 WEEKS 01/11 completed Not Available Not Available Not Available olanzapine 5 mg tablet TAKE ONE [...] yed release TAKE 1 TABLET BY MOUTH DAILY BEFORE BREAKFAST . active Not Available Not Available No t [...] MOUTH EVERY 12 HOURS FOR 7 DAYS 01/11 completed Not Available Not Available Not Available levofloxaci n 750 mg tablet TAKE 1 TABLET BY MOUTH EVERY DAY FOR 5 DAYS 10/12 completed Not Available Not Available Not Available methylpredn isolone 4 mg tablets in a dose pack TAKE 6 TABLETS ON DAY 1 DIRECTED ON PACKAGE AND DECREASE BY 1 TAB EACH DAY FOR A TOTAL OF 6 DAYS 01/11 completed Not Available Not Available Not Available lisinopril 40 mg tablet TAKE one-half tablet BY MOUTH DAILY 08/20 completed Not Available Not Available Not Available ondansetron 4 mg disintegrat ing tablet DISSOLVE 1 TABLET BY MOUTH FOUR TIMES DAILY NEEDED FOR NAUSEA AND VOMITTING 01/11 completed Not Available Not Available Not Available cefdinir 300 mg capsule TAKE 1 CAPSULE BY MOUTH EVERY 12 HOURS FOR 5 DAYS 01/11 completed Not Available Not Available Not Available [...] OUS EVERY 12 HOURS FOR 7 DAYS 01/11 completed Not Available Not Available Not Available insulin lispro (U-100) 100 unit/mL subcutaneou s pen Inject 12 units 3 times a day by subcutane ous route before meal(s). 2024 active Not Available Not Available Not Avai lable azithromyci n 500 mg tablet TAKE 1 TABLET BY MOUTH EVERY DAY 01/11 completed Not Available Not Available Not Available aripiprazol e 30 mg tablet TAKE [...] as needed if no or minimal response 01/11 completed Not Available Not Available Not Available Vraylar 1.5 mg capsule TAKE ONE [...] 29 gauge x 1/2 USE directed with Vicdenise. active Not Available Not Available No t [...] by subcutane ous route for 30 days. 01/11 completed Not Available Not Available Not Available Paxlovid 300 mg (150 mg x 2)-100 mg tablets in a dose pack TAKE 300 MG Nirmatrel vir (TWO TABLETS) AND 100 MG ritonavir (ONE TABLET) by MOUTH together TWICE DAILY FOR FIVE DAYS. 08/20 completed Not Available Not Available Not Available Vitals Date Recorded Body height Oxygen saturation Oxygen saturation in Arterial blood by Pulse oximetry Inhaled oxygen flow rate Heart rate Respiratory rate Systolic And Diastolic Provider Name and Address Organization Details Last Updated DateTime 5 163.83 cm 95 % 95 % 3 L/min 108 /min 28 /min 152/90 mm[Hg] MAGGIE CHUNG [facility] 5 12:40:32 Social History None recorded. Functional Status Question [...] 50 mcg/0.25mL dose 1 completed YANNICK moy [facility] 09/04/2023 12:02:17 COVID-19, mRNA, LNP-S, PF, 100 mcg/0.5mL dose or 50 mcg/0.25mL dose 1 completed YANNICK moy [facility] 09/04/2023 12:02:17 COVID-19, mRNA, LNP-S, PF, 100 mcg/0.5mL dose or 50 mcg/0.25mL dose 1 completed YANNICK moy, [facility] 09/04/2023 12:02:17 Pneumococcal conjugate PCV20, polysaccharide [id number] conjugate, adjuvant, PF 3 completed YANNICK PERSON null, [facility] 09/04/2023 12:02:17 Pneumococcal conjugate PCV20, polysaccharide [id number] conjugate, adjuvant, PF 2 completed YANNICK HORNRIS null, [facility] 09/04/2023 12:02:17 COVID-19, mRNA, LNP-S, PF, 50 mcg/0.5 mL dose 2 completed YANNICK HORNRIS farzaneh, [facility] 09/04/2023 12:02:17 pneumococcal polysaccharide PPV23 8 completed YANNICK HORNRIS null, [facility] 09/04/2023 12:02:17 Tdap 2 completed YANNICK moy, [facility] 09/04/2023 12:02:17 Tdap 3 completed YANNICK moy, [facility] 09/04/2023 12:02:17 Influenza, split virus, trivalent, PF 5 completed YANNICK PERSON null, [facility] 09/04/2023 12:02:17 Influenza, split virus, quadrivalent, PF 3 completed YANNICK PERSON null, [facility] 09/04/2023 12:02:17 Influenza, split virus, quadrivalent, PF 8 completed YANNICK PERSON null, [facility] 09/04/2023 12:02:17 Influenza, split virus, quadrivalent, PF 2 completed YANNICK PERSON null, [facility] 09/04/2023 12:02:17 Influenza, split virus, quadrivalent, PF 9 completed YANNICK PERSON null, [facility] 09/04/2023 12:02:17 meningococcal B, OMV 4 completed YANNICK PERSON null, [facility] 09/07/2023 11:21:49 meningococcal conjugate quadrivalent, MenACWY-TT (MCV4) 4 completed YANNICK moy, [facility] 09/07/2023 11:21:49 Pneumococcal conjugate PCV20, polysaccharide [id number] conjugate, adjuvant, PF 4 completed YANNICK moy, [facility] 09/07/2023 11:21:49 Hib (PRP-T) 4 completed YANNICK PERSON farzaneh, [facility] 09/07/2023 11:21:49 Influenza, split virus, trivalent, PF 4 completed Not Available [facility] 01/11/2025 11:39:54 Past Encounters Encounter ID Performer Location Encounter Start Date Encounter Closed Date Diagnosis/Indication Diagnosis SNOMED-CT Code Diagnosis ICD10 Code Diagnosis IMO Codes Diagnosis Note [id number] Delta Wade MD [facility] ([facility]) [address] [place] [address] 12/21/2024 09:09:05 12/22/2024 11:06:01 Pulmonary embolism 18745466 I26.99 INR was 0.9 recently at [place] by her report. [id number] RALEIGH MCELROY [facility] ([facility]) [address] [place] [address] 01/11/2025 11:37:07 01/11/2025 16:52:31 Chronic obstructive pulmonary disease 79805857 J44.9 Her PCP has been trying to get her an Astral covered to help with her breathing at night. She has severe COPD with frequent hospitaliz ations due to hypoxia. A non-invasi ve ventilator would be beneficial to her due to the severity of her disease. A ventilator is required to decrease work of breathing and to improve pulmonary status. Hopefully this will reduce the frequencie s of her ER visits. Order was originally signed on 12/18/[address] Wade for patient. Uncontrol ed type 2 diabetes mellitus 422036339 E11.65 92304645 Chronic pain syndrome 37 3932978 G89.[address] Wade. She has not had any pain medication since she has been discharged . Unsure where the remainder of her previously filled hydrocodon e have gone. Will not prescribe any additional narcotics or controlled substances per Dr. Wade. Health Concerns Section Related Observation LastModified by Organization Detai ls LastModified Time None Recorded Concern Status LastModified by Organization Details LastModified Time None Recorded Payers Encounter Date Sequence Insurance Name Policy Number Policy Esquivel Covered Member ID Esquivel Member ID Guarantor Name 01/11/2025 1 [place] Le Barnhart [id number] Le Barnhart Notes Date Note Type Note Provider Name and Address Organization Details Recorded Time 01/11/2025 text/html COPDReported by PatientHPI:For severity, patient reportsvery limiting. For duration, patient reportschronic,has noted for years, andconstant. For alleviating factors, patient reportsrelieved with restandrelieved with oxygen. Delta Wade MD [address] [place] [address], [phone], [facility] 01/11/2025 17:20:33 OBGyn Episode No OBEpisode recorded.
--- OUTSIDE RECORDS SUMMARY | 2025-01-15 13:44 | XMS_ITS | Encounter Summary ---
Author Organization [facility] Address [address] [place] [address] Care Team Providers Care Injury/Safety Hazard Assessment Name Role Phone Delta Wade MD Primary Care Provider [phone] Encounter Details Date Type Department Care Team (Latest Contact Info) Description 01/05/2025 Results Follow-Up [facility] Emergency Department [address] [place] [address] Ayana Roman, RN BLOOD CULTURE, [...] often do you attend chur ch or congregational services? More than 4 times [...] transportation for future doctor visits, pick up operator medication, etc.? Prefer not to answer 01/07/2025 [...] on file Legal Sex Female 11:49 PM SALES TEACHER Gender Identity Not on file Sexual Orientation Not on file documented as of this encounter Plan of Treatment Upcoming Encounters Date Type Department Care Team (Latest Contact Info) Description 01/25/2025 12:00 PM SALES TEACHER Hospital Encounter [place] [id number] [phone] Kumar Ochoa MD [address] [address] Combined forms of age-related cataract of right eye 01/25/2025 1:00 PM SALES TEACHER - 01/25/2025 2:13 PM SALES TEACHER Surgery [address] [phone] Kumar Ochoa MD [address] [address] CATARACT EXTRACTION IOL INSERTION FEMTO LASER ASSISTED LEVEL 1 01/26/2025 8:30 AM SALES TEACHER Office Visit [facility] Ophthalmology [place] [address] [address] Eduardo Craven MD [address] [address] 02/01/2025 9:00 AM SALES TEACHER Office Visit [facility] Ophthalmology [place] [address] [place] [address] Paul Bustillos, OD [address] [place] [address] 02/14/2025 3:00 PM SALES TEACHER Office Visit [facility] Pulmonology [address] [place] [address] Angeli Miles MD [address] [place] [address] Scheduled Procedures Name Priority Associated Diagnoses Date/Ti me CATARACT EXTRACTION IOL INSERTION FEMTO LASER ASSISTED LEVEL 1 Combined forms of age-related cataract of right eye Right retinal detachment 01/25/2025 1:00 PM SALES TEACHER PARS PLANA VITRECTOMY WITH LASER Combined forms of age-related cataract of right eye Right retinal detachment 01/25/2025 1:00 PM SALES TEACHER EYE PLACEMENT OF SILICONE OIL Combined forms of age-related cataract of right eye Right retinal detachment 01/25/2025 1:00 PM SALES TEACHER documented as of this encounter Goals Goal [...] 01/07/2025 01/07/2025 01/08/2025 5 :44 AM CDT Assessment Noted Time PHQ-9 Depression Total Score: 1 01/05/20 12:49 PM CDT documented as of this encounter Care Teams Injury/Safety Hazard Assessment Relationship Specialty Start Date End Date Delta Wade MD [address] [facility] [place] [address] PCP - General Family Practice 03/25/24 documented as of this encounter
--- OUTSIDE RECORDS SUMMARY | 2025-01-15 13:45 | XMS_ITS | Encounter Summary ---
Author Organization [facility] Address [address] Gonzalez: Epic Prelude ADT [place] [address] Care Team Providers Care [employer] Counselor Name Role Phone Delta Wade MD Primary Care Provider [phone] Encounter Details Date Type Department Care Team (Latest Contact Info) Description 01/11/2025 Travel Social History Tobacco Use Types Packs/Day [...] 06/13/2019 How often do you attend [facility] or yazdanism services? More than 4 times [...] worry about transportation for future doctor visits, warp picker medication, etc.? No 2024 Housing Stability [...] file Legal Sex Female 11:49 PM MANAGER INTERNSHIP Gender Identity Not on file Sexual Orientation Not on file documented as of this encounter Plan of Treatment Upcoming Encounters Date Type Department Care Team (Latest Contact Info) Description 01/25/2025 12:00 PM MANAGER INTERNSHIP Hospital Encounter [facility] [address] [place] [address] Kumar Ochoa MD [address] [address] Combined forms of age-related cataract of right eye 01/25/2025 1:00 PM MANAGER INTERNSHIP - 01/25/2025 2:13 PM MANAGER INTERNSHIP Surgery [facility] [address] [place] [address] Kumar Ochoa MD [address] [address] CATARACT EXTRACTION IOL INSERTION FEMTO LASER ASSISTED LEVEL 1 01/26/2025 8:30 AM MANAGER INTERNSHIP Office Visit [facility] Ophthalmology [place] [address] [address] Eduardo Craven MD [address] [address] 02/01/2025 9:00 AM MANAGER INTERNSHIP Office Visit [facility] Ophthalmology [place] [address] [address] Paul Bustillos, OD [address] [address] 02/14/2025 3:00 PM MANAGER INTERNSHIP Office Visit [facility] Pulmonology [address] [place] [address] Angeli Miles MD [address] [place] [address] Scheduled Procedures Name Priority Associated Diagnoses Date/Ti me CATARACT EXTRACTION IOL INSERTION FEMTO LASER ASSISTED LEVEL 1 Combined forms of age-related cataract of right eye Right retinal detachment 01/25/2025 1:00 PM MANAGER INTERNSHIP PARS PLANA VITRECTOMY WITH LASER Combined forms of age-related cataract of right eye Right retinal detachment 01/25/2025 1:00 PM MANAGER INTERNSHIP EYE PLACEMENT OF SILICONE OIL Combined forms of age-related cataract of right eye Right retinal detachment 01/25/2025 1:00 PM MANAGER INTERNSHIP documented as of this encounter Goals Goal Patient Goal Type Associated Problems Recent Progress Patient-Stated? Author Heart Failure Goal Care Plan Heart Failure Problem No Latonya Anguiano LPN documented as of this encounter Visit Diagnoses Not on filedocumented in this encounter Additional Health Concerns Active Problems Noted Date Diagnosed Date Heart Failure Problem 05/12/2024 documented as of this encounter Care Teams [employer] Counselor Relationship Specialty Start Date End Date Delta Wade MD [address] [address] PCP - General Family Practice 03/25/24 documented as of this encounter
--- OUTSIDE RECORDS SUMMARY | 2025-01-15 13:45 | XMS_ITS | Encounter Summary ---
Author Organization [facility] Address [address] [place] [address] Care Team Providers Care [employer] Name Role Phone Delta Wade MD Primary Care Provider [phone] Reason for Visit * Reason Comments Error Encounter Details Date Type Department Care Team ([facility] st Contact Info) Description 01/12/2025 Mobile Encounter [address] [address] Kapil Deluna, [address] [place] [address] Social History Tobacco Use Types Packs/Day Years [...] often do you attend chur ch or congregation services? More than 4 times [...] about transportation for future doctor visits, pick remover medication, etc.? No 2024 Housing Stability Answer [...] on file Legal Sex Female 11:49 PM ACROBATIC RIGGER Gender Identity Not on file Sexual Orientation Not on file documented as of this encounter Plan of Treatment Upcoming Encounters Date Type Department Care Team (Latest Contact Info) Description 01/25/2025 12:00 PM ACROBATIC RIGGER Hospital Encounter [place] [id number] [phone] Kumar Ochoa MD [address] [address] Combined forms of age-related cataract of right eye 01/25/2025 1:00 PM ACROBATIC RIGGER - 01/25/2025 2:13 PM ACROBATIC RIGGER Surgery [place] [address] [facility] [address] [place] [phone] Kumar Ochoa MD [address] [phone] CATARACT EXTRACTION IOL INSERTION FEMTO LASER ASSISTED LEVEL 1 01/26/2025 8:30 AM ACROBATIC RIGGER Office Visit [facility] [place] [address] [phone] Eduardo Craven MD [address] [phone] 02/01/2025 9:00 AM ACROBATIC RIGGER Office Visit [facility] [place] [address] [place] [address] Paul Bustillos, OD [address] [place] [address] 02/14/2025 3:00 PM ACROBATIC RIGGER Office Visit [facility] [address] [place] [address] Angeli Miles MD [address] [place] [address] Scheduled Procedures Name Priority Associated Diagnoses Date/Ti me CATARACT EXTRACTION IOL INSERTION FEMTO LASER ASSISTED LEVEL 1 Combined forms of age-related cataract of right eye Right retinal detachment 01/25/2025 1:00 PM ACROBATIC RIGGER PARS PLANA VITRECTOMY WITH LASER Combined forms of age-related cataract of right eye Right retinal detachment 01/25/2025 1:00 PM ACROBATIC RIGGER EYE PLACEMENT OF SILICONE OIL Combined forms of age-related cataract of right eye Right retinal detachment 01/25/2025 1:00 PM ACROBATIC RIGGER documented as of this encounter Goals Goal Patient Goal Type Associated Problems Recent Progress Patient-Stated? Author Heart Failure Goal Care Plan Heart Failure Problem No Latonya Anguiano LPN documented as of this encounter Visit Diagnoses Not on filedocumented in this encounter Additional Health Concerns Active Problems Noted Date Diagnosed Date Heart Failure Problem 05/12/2024 documented as of this encounter Care Teams [employer] Relationship Specialty Start Date End Date Delta Wade MD [address] [id number] PCP - General Family Practice 03/25/24 documented as of this encounter
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
--- OUTSIDE RECORDS SUMMARY | 2025-01-15 13:45 | XMS_ITS | Patient Health Record ---
Author Organization [facility] Address [address] [place] [address] Care Team Providers Care Diagram Clerk Name Role Phone ( [facility] ), PHYSICIAN NOT IDENTIFIED Primary Care Provider Unavailable DR. Dominguez Mckay Unavailable [phone] Kyler Martin Unavailable [phone] Allergies Allergen (clinical drug ingredient) Drug/Non Drug [...] Encounters Encounter Location Date Provider Diagnosis [address] [place] [address] Dental Clinic [address] [place] [phone] 06/08/2024 Dominguez Mckay [address] [place] [address] [address] [place] [phone] 09/28/2024 Dominguez Mckay Plan Of Treatment Next Appt Details Provider Name:Dominguez Mckay , 01/16/2025 08:00:00 AM, [address] [place], [address], Insurance Providers Payer Name Payer Address Payer Phone Subscriber Number Group Number Insured Name Patient Relationship to Insured Coverage Start Date Coverage End Date Medicaid Dental [address] [place] [address] [id number] Barnhart Le Self - patient is the insured Medicaid [address] [place] [address] [id number] Le Barnhart Self - patient is the insured Medical (General) History Medical History History ICD Code heart murmer diabetes emphysema cancer chemotherapy high bp radiation treatment
[2025-01-15 13:48] VITALS: PULSE 108; RESP 32; TEMP 36.9; O2SAT 97
[2025-01-15 13:50] VITALS: BP 126/80
[2025-01-15 14:03] LABS: Hematocrit 38.5 % (36-47); Hemoglobin 11.90 g/dL (11.27-16.99); Mean Corpuscular HGB Conc 30.9 g/dL (30-55); Mean Corpuscular Hemoglobin 29.9 pg (27-33); Mean Corpuscular Volume 96.7 fl (85-98); Nucleated Red Blood Cells % 2.5 %; Platelet Count 227 10^3/cmm (157-399); Red Blood Count 3.98 10^6/uL (3.85-5.65); White Blood Count 8.52 10^3/uL (3.29-11.43)
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
[2025-01-15 14:33] LABS: Alanine Aminotransferase 26 U/L (0-33); Albumin Level 3.7 g/dL (3.5-5.2); Alkaline Phosphatase 160 U/L (35-105); Blood Urea Nitrogen 18 mg/dL (6-20); Calcium 9.4 mg/dL (8.5-10.5); Carbon Dioxide 24 mmol/L (22-29); Chloride 96 mmol/L (98-107); Creatinine Clr Calc Pharmacy 132.1675; Globulin 2.9 g/dL (1.3-4.6); Glucose 490 mg/dL (65-115); NT Pro B Type Natriuretic Pept 295 pg/mL (0-125); Osmolality Calculated 306 mOsm/kg (285-295); Sodium 136 mmol/L (136-145); Total Protein 6.6 g/dL (6.6-8.7)
[2025-01-15 14:35] VITALS: PULSE 109; O2SAT 93
[2025-01-15 14:35] LABS: Anion Gap 20.4 (5-19)
[2025-01-15 14:36] LABS: Aspartate Amino Transferase 19 U/L (0-32); Potassium 4.4 mmol/L (3.5-5.1)
[2025-01-15 14:42] VITALS: PULSE 110; RESP 24; O2SAT 90
[2025-01-15] MEDS: cefTRIAXone 1,000 MG in water for injection-sterile 2.1 ML 2.1 MG IM (15:10)
[2025-01-15] MEDS: HYDROcodone-acetaminophen 5-325 mg Tablet 1 TAB PO (15:12)
[2025-01-15 15:54] VITALS: BP 146/120; PULSE 101; O2SAT 95
== END 2025-01-15 15:56 | disposition home or self-care (01) ==
PROVIDERS: Emergency Medicine; Emergency Provider Physician Assistant; PCP Family Medicine
DX: J44.1 Chronic obstructive pulmonary disease with (acute) exacerbation (principal); J18.9 Pneumonia, unspecified organism; Z79.01 Long term (current) use of anticoagulants; Z79.4 Long term (current) use of insulin; Z87.891 Personal history of nicotine dependence; I25.10 Atherosclerotic heart disease of native coronary artery without angina pectoris; I10 Essential (primary) hypertension
CPT/HCPCS: 36415; 71045; 80053; 83880; 85025; 93005; 94640; 96372; 99285; J0696; J1100; J9999

== ENCOUNTER 2025-02-26 06:17 | Emergency (ER) | payer MEDICAID, SELFPAY ==
--- OUTSIDE RECORDS SUMMARY | 2020-06-27 09:30 | XMS_ITS | Continuity of Care Document ---
Author Organization [facility] Address [address] [place] [address] Phone Care Team Providers Care Point Of Sale Associate Name Role Phone Unavailable Unavailable Unavailable Allergies, Adverse Reactions, Alerts Substance Reaction Status Criticality PROCHLORPERAZINE MALEATE HivesHives Active No Information PROCHLORPERAZINE EDISYLATE HivesHives Active N o Information prochlorperazine HivesHives Active No Informat ion TRAMADOL HCL HivesHives Active No Information KETOROLAC TROMETHAMINE HivesHives Active No In formation Medications Medication Instructions Dosage Effective Dates (start - stop) Status Comments gabapentin 800 mg tablet take 1 tablet by oral route 3 times every day 800 MG - Active albuterol sulfate 2.5 mg/3 mL (0.083 %) solution for nebulization inhale 1 Ampoule by NEBULIZATION route every 4 - 6 hours as needed for cough/wheezing 0.8333 MG - Active Procedures Procedure Date OFFICE/OUTPATIENT VISIT, [facility] Advance Directives Directive Yes / No Effective Date File Name No Information Encounters Encounter Description Practice Location Reason(s) For Visit Diagnoses Date Provider Providers Copied on Encounter OFFICE/OUTPA TIENT VISIT, [facility], [address], [place], [place], [address] , [place] tel: [phone] [facility] follow up (chief complaint) COPDEssential (primary) hypertensionAthero sclerotic cardiac diseaseTobacco use disorder, moderateCancer of vagina No Information Family History Family Member Type Diagnosis Age At Onset Mother Problem malignant neopla sm of breast in first degree relative Mother Problem coronary arteriosclerosis Sister Problem stroke Father Problem coronary arteriosclerosis Mother Problem hypertension Payers Payer name Insurance type Covered republican ID Authoriza dioni(s) Medicaid - Medical [id number] Social History Type Description Quantity Date Captured Comments Alcohol Use Details Unknown Caffeine Use Details Unknown Tobacco Use Status No Information Smoking Status No Information Sex Female Chief Complaint And Reason For Visit From encounter dated '06/27/2020 15:30'. Hospital follow up (chief complaint). Description: Patient appointment was to establish care, [facility] Patient was in the hospital 3-5 weeks ago for difficulty breathing, chest pain, and patient has 5 stent in her heart now. 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 Patient has HTN, hip pain, and COPD.Patient smokes 3-4 cigarettes per day, denies alcohol or drug use.Patient says she has all her medication except gabapentin and albuterol solution. Reason For Referral Reason For Referral No Information History Of Present Illness Encounter Date Complaint History Of Prese nt Illness Hospital follow up Patient appoi ntment was to establish care, patient was seen at [facility]. Patient was in the hospital 3-5 weeks ago for difficulty breathing, chest pain, and patient has 5 stent in her heart now. 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 Patient has HTN, hip pain, and COPD.Patient smokes 3-4 cigarettes per day, denies alcohol or drug use.Patient says she has all her medication except gabapentin and albuterol solution. Functional Status Date Functional Assessmen t No Information Instructions Date Instruction Additional Infor desean Managed by oncology Related to C ancer of vagina Continue current medications Rel ated to Essential (primary) hypertension Schedule an in-perso n appointment for physical and labs. Related to COPD Assessments Type Assessment Date assessment COPD assessment Essential (primary) hypertension assessment Atherosclerotic cardiac disease assessment Tobacco use disorder, moderate A assessment Cancer of vagina Patient Care Teams Name Effective Dates (start - stop) Status Members No Information
--- OUTSIDE RECORDS SUMMARY | 2024-02-03 05:00 | XMS_ITS ---
Author Organization [facility] Address [address] [place] [phone] Care Team Providers Care Cradle Slide Maker Name Role Phone ( [facility] ), PHYSICIAN NOT IDENTIFIED Primary Care Provider Unavailable Kyler Martin Unavailable [phone] REASON FOR VISIT wants bottom dentures needs slide - Eugenia if needed Social History Sex Assigned At : Social History Observation Description Sex Assigned At Female Encounters Encounter Location Date Provider Diagnosis [address] [place] [address] Dental Clinic [address] [place] [phone] 02/03/2024 Kyler Martin Plan Of Treatment No Information Progress Notes * Zhang DIAZaDOB:1965 (59 yo F)Acc No.[id number]:02/03/2024 Patient: Le Colindres Provider: Tawanda Martin DMD :1965 A ge:58 Y S ex:Female Date:02/03/2024 Address:[address] [place], [place] [phone] Pcp:PHYSICIAN NOT IDENTIFIED ( [facility] ) Subjective: * Chief Complaints: * w ants bottom dentures needs slide - Eugenia if needed Billing Information: * Procedure Codes: * Electronic signature of Antelmo Martin DMD on 02/26/2025 at 06:23 AM NEON GLASS BENDER Sign off status: Pending * Provider: Tawanda Martin DMD Date: 04/04/2023 Generated for Mani contreras/Moshe/eTransmitting on: 04/29/2024 06:23 AM NEON GLASS BENDER
--- OUTSIDE RECORDS SUMMARY | 2024-04-27 07:00 | XMS_ITS ---
Author Organization [facility] Address [address] [place] [address] Care Team Providers Care Slot Machine Key Person Name Role Phone Delta Wade Primary Care Provider Jose Cruz Harvey Unavailable [phone] Hannah Rai Unavailable [phone] REASON FOR VISIT S/P [facility], Jahaira 04/06/24 Encounters Encounter Location Date Provider Diagnosis [facility] [address] [place] [phone] 04/27/2024 Hannah Rai Non-ST elevated myocardial infarction [...] * GIANFRANCO DIAZDOB: 6 (59 yo F)Acc No.[id number]:04/27/2024 Patient: Jahaira ZORAIDAGIANFRANCO KANG Provider: Tawanda Rai APN :1965 A ge:58 Y S ex:Female Date:04/27/2024 Address:[address] [place], [place] [phone] Pcp:Delta Wade Subjective: * Chief Complaints: * [...] Electronic signature of Eliu Rai APRN on 02/26/2025 at 06:24 AM CRANE HOIST OR LIFT OPERATOR Sign off status: Pending * Provider: Tawanda Rai APN Date: 0 04/27/2024 Generated for Mani contreras/Moshe/Binta on: 04/29/2024 06:24 AM CRANE HOIST OR LIFT OPERATOR
--- OUTSIDE RECORDS SUMMARY | 2024-05-06 04:30 | XMS_ITS ---
Author Organization [facility] Address [address] [place] [address] Care Team Providers Care Leverman Name Role Phone Delta Wade Primary Care Provider Jose Cruz Harvey Unavailable [phone] Acacia Gaines Unavailable [phone] [facility] Encounters Encounter Location Date Provider Diagnosis [facility] [address] [place] [phone] 05/06/2024 Acacia Gaines Plan Of Treatment No Information History and Physical Notes * HPI (History of Present Illness) Category Sub-Category Detail Notes Category Not es Provider Note Patient is a 58-year-old female with a history of COPD, type 2 diabetes, DVTs, pulmonary embolism(August 2023), and coronary artery disease with multivessel stenting, as well as heart failure with preserved ejection fraction. Patient's last echocardiogram was in January 2024 left ventricular systolic function was mildly reduced at 40 to 45% with akinesis in the inferior lateral wall and trace mitral regurgitation. Prior cardiac care was in [place]. She was admitted to the hospital with chest discomfort on April 04 and ruled in for non-ST elevation [place]. Patient was evaluated by Dr. Nunez and recommended for cardiac catheterization previously placed stents to the LAD were widely patent, circumflex was unremarkable, RCA had multiple stents which were also widely patent, left main was free of disease. Patient had reported noncompliance with her warfarin. She underwent a CTA however no pulmonary embolus or other acute process seen some chronic lung markings were noted. Patient was discharged on aspirin and atorvastatin. She was seen in the ER on April 30 with chest discomfort and again on May 02 with chest discomfort and shortness of breath. Since November patient has been seen in the hospital/ED 14 times Progress Notes * GIANFRANCO DIAZ JDOB: [birth year] (59 yo F)Acc No.[id number]:05/06/2024 Patient: GIANFRANCO GARCIA Provider: Cameron Gaines NP :1965 A ge:58 Y S ex:Female Date:05/06/2024 Address:[address] [place], [place] [phone] Pcp:Delta Wade Subjective: * Chief Complaints: * S /P LHC, JLA 04/06/24 * HPI: P heber Note: Patient is a 58-year-old female with a history of COPD, type 2 diabetes, DVTs, pulmonary embolism(August 2023), and coronary artery disease with multivessel stenting, as well as heart failure with preserved ejection fraction. Patient's last echocardiogram was in January 2024 left ventricular systolic function was mildly reduced at 40 to 45% with akinesis in the inferior lateral wall and trace mitral regurgitation. Prior cardiac care was in [place]. She was admitted to the hospital with chest discomfort on April 04 and ruled in for non-ST elevation [place]. Patient was evaluated by Dr. Nunez and recommended for cardiac catheterization previously placed stents to the LAD were widely patent, circumflex was unremarkable, RCA had multiple stents which were also widely patent, left main was free of disease. Patient had reported noncompliance with her warfarin. She underwent a CTA however no pulmonary embolus or other acute process seen some chronic lung markings were noted. Patient was discharged on aspirin and atorvastatin. She was seen in the ER on April 30 with chest discomfort and again on May 02 with chest discomfort and shortness of breath. Since November patient has been seen in the hospital/ED 14 times. Billing Information: * Procedure Codes: * Electronic signature of CRIS Ellis, MARKETING AUTOMATION SPECIALIST-C on 02/26/2025 at 06:23 AM AIR DEFENSE ARTILLERY SENIOR SERGEANT Sign off status: Pending * Provider: Cameron Gaines NP Date: 0 05/06/2024 Generated for Mani contreras/Moshe/Adrianitting on: 1 04/29/2024 06:23 AM AIR DEFENSE ARTILLERY SENIOR SERGEANT
--- OUTSIDE RECORDS SUMMARY | 2024-07-08 04:30 | XMS_ITS ---
Author Organization [facility] Address [address] [place] [address] Care Team Providers Care Certified Nurse Operating Room Name Role Phone Delta Wade Primary Care Provider Jose Cruz Harvey [phone] Encounters Encounter Location Date Provider Diagnosis Count Includes [facility] [address] [place] [address] [place] [address] 07/08/2024 Jose Cruz Forde Plan Of Treatment No Information Progress Notes * GIANFRANCO DIAZDOB: 6 (59 yo F)Acc No.[id number]:07/08/2024 Patient: Jahaira HANNA GIANFRANCO Page Provider: Abdirahman Forde MD :1965 A ge:58 Y S ex:Female Date:07/08/2024 Address:[address] [place], [place] [phone] Pcp:Delta Wade * Electronic signature of Natasha Forde MD on 02/26/2025 at 06:24 AM ACCOUNT MANAGER B2B Sign off status: Pending * Provider: Abdirahman Forde MD Date: 0 07/08/2024 Generated for Printi ng/Faxing/eTransmitting on: 1 04/29/2024 06:24 AM ACCOUNT MANAGER B2B
--- OUTSIDE RECORDS SUMMARY | 2024-07-12 08:00 | XMS_ITS ---
Author Organization [facility] Address [address] [place] [address] Care Team Providers Care Physician Coding Specialist Name Role Phone Delta Wade Primary Care Provider Jose Cruz Harvey [phone] REASON FOR VISIT [phone] Encounters Encounter Location Date Provider Diagnosis [facility] [address] [place] [address] [place] [address] 07/12/2024 Jose Cruz Forde Plan Of Treatment No Information Progress Notes * GIANFRANCO DIAZDOB: 6 (59 yo F)Acc No.[id number]:07/12/2024 Pulmonary Function Test Patient: Jahaira GIANFRANCO HANNA Provider: Abdirahman Forde MD :1965 A ge:59 Y S ex:Female Date:07/12/2024 Address:[address] [place], [place] [phone] Pcp:Delta Wade Subjective: * Chief Complaints: * 6 [id number] Billing Information: * Procedure Codes: * Electronic signature of Natasha Forde MD on 02/26/2025 at 06:22 AM BODY PAINTER Sign off status: Pending * Provider: Abdirahman Forde MD Date: 0 07/12/2024 Generated for Mani contreras/Moshe/eTransmitting on: 04/29/2024 06:22 AM BODY PAINTER
--- OUTSIDE RECORDS SUMMARY | 2024-07-12 09:00 | XMS_ITS ---
Author Organization [facility] Address [address] [facility] [address] Care Team Providers Care Online Editor Name Role Phone Delta Wade Primary Care Provider Jose Cruz Harvey [phone] REASON FOR VISIT [phone] Encounters Encounter Location Date Provider Diagnosis [facility] [address] [place] [address] [place] [address] 07/12/2024 Jose Cruz Forde Plan Of Treatment No Information Progress Notes * GIANFRANCO DIAZDOB: [birth year] (59 yo F)Acc No.[id number]:07/12/2024 Progress Notes Patient: Jahaira GIANFRANCO HANNA Provider: Abdirahman Forde MD :1965 A ge:59 Y S ex:Female Date:07/12/2024 Address:[address] [place], [place] [phone] Pcp:Delta Wade Subjective: * Chief Complaints: * 6 [id number] Billing Information: * Procedure Codes: Care Plan Details* * Electronic signature of Natasha Forde MD on 02/26/2025 at 06:23 AM HAND BANDER Sign off status: Pending * Provider: Abdirahman Forde MD Date: 0 07/12/2024 Generated for Mani contreras/Moshe/eTransmitting on: 04/29/2024 06:23 AM HAND BANDER
--- OUTSIDE RECORDS SUMMARY | 2024-07-13 03:30 | XMS_ITS ---
Author Organization [facility] Address [address] [place] [address] Care Team Providers Care Weather Strip Installer Name Role Phone ( [facility] ), PHYSICIAN NOT IDENTIFIED Primary Care Provider DR. Dominguez Pate Unavailable [phone] REASON FOR VISIT cavity on lower- Social History Sex Assigned At : Social History Observation Description Sex Assigned At Female Encounters Encounter Location Date Provider Diagnosis [address] [place] [address] [facility] [address] [place] [address] 07/13/2024 Dominguez Mckay Plan Of Treatment No Information Progress Notes * Zhang DIAZaDOB:1965 (59 yo F)Acc No.[id number]:07/13/2024 Patient: Le Colindres Provider: Jahaira Mckay DDS :1965 A ge:59 Y S ex:Female Date:07/13/2024 Address:[address] [place], [place] [phone] Pcp:PHYSICIAN NOT IDENTIFIED ( [facility] ) Subjective: * Chief Complaints: * C avity on lower- Billing Information: * Procedure Codes: * Electronic signature of DR. Dominguez Mckay DDS on 02/26/2025 at 06:22 AM SPECIAL EDUCATION TEACHERS Sign off status: Pending * Provider: Jahaira Mckay DDS Date: 0 07/13/2024 Generated for Printi ng/Faxing/eTransmitting on: 1 04/29/2024 06:22 AM SPECIAL EDUCATION TEACHERS
--- OUTSIDE RECORDS SUMMARY | 2024-07-19 02:00 | XMS_ITS ---
Author Organization [facility] Address [address] [facility] [address] Care Team Providers Care Esl Teacher Name Role Phone Delta Wade Primary Care Provider Jose Cruz Harvey [phone] REASON FOR VISIT [phone] Encounters Encounter Location Date Provider Diagnosis [facility] [address] [place] [address] [place] [address] 07/19/2024 Jose Cruz Forde Plan Of Treatment No Information Progress Notes * GIANFRANCO DIAZDOB: 6 (59 yo F)Acc No.[id number]:07/19/2024 Pulmonary Function Test Patient: Jahaira GIANFRANCO HANNA Provider: Abdirahman Forde MD :1965 A ge:59 Y S ex:Female Date:07/19/2024 Address:[address] [place], [place] [phone] Pcp:Delta Wade Subjective: * Chief Complaints: * 6 [id number] Billing Information: * Procedure Codes: * Electronic signature of Natasha Forde MD on 02/26/2025 at 06:23 AM SUPERVISOR SANDING Sign off status: Pending * Provider: Abdirahman Forde MD Date: 0 07/19/2024 Generated for Mani contreras/Moshe/eTransmitting on: 04/29/2024 06:23 AM SUPERVISOR SANDING
--- OUTSIDE RECORDS SUMMARY | 2024-07-19 04:10 | XMS_ITS ---
Author Organization [facility] Address [address] [place] [address] Care Team Providers Care Intelligent Systems Engineer Name Role Phone Delta Wade Primary Care Provider Jose Cruz Harvey [phone] REASON FOR VISIT abnormal chest CT Medications [...] Active Encounters Encounter Location Date Provider Diagnosis [facility] [address] [place] [address] [place] [address] 07/19/2024 Jose Cruz Forde Solitary pulmonary nodule [...] remission (ICD-10 - F17.211) Patient smoked a etkt-vhv-vrq for 45 years. She has been abstinent [...] cigaret taiwo, in remission Patient smoked a tflo-pqr-vjt for 45 yea rs. She has been [...] ION 07/08/24 but was hospitalized twice at [facility] and unable to complete her pre-surgical testing. [...] DIAZ, GIANFRANCO PageDOB: 6 (59 yo F)Acc No.[id number]:07/19/2024 Progress Notes Patient: GIANFRANCO GARCIA Provider: Abdirahman Forde MD :1965 A ge:59 Y S ex:Female Date:07/19/2024 Address:[address] [place], [place] [phone] Pcp:Delta Wade Subjective: * Chief Complaints: * [...] ION 07/08/24 but was hospitalized twice at [facility] and unable to complete her pre-surgical testing. ION rescheduled for 07/22/24 -ION CT. * ROS: Juliette cain of [facility] has been reviewed and scanned in by [...] 1 TABLET BY MOUTH EVERY DAY Oral Cuj-BzkfruRPJYRzlkavf-Ntwagyslzktue 5-325 MG Tablet TAKE 1 TABLET BY [...] cigarettes, in remission Notes: Patient smoked a zxmf-cyu-whz for 45 years. She has been abstinent [...] Forde MD on 02/26/2025 at 06:22 AM INTAKE CLERK Sign off status: Pending * Provider: Abdirahman Forde MD Date: 0 07/19/2024 Generated for Mani contreras/Moshe/Adrianitting on: 1 04/29/2024 06:22 AM INTAKE CLERK
--- OUTSIDE RECORDS SUMMARY | 2024-07-22 04:00 | XMS_ITS ---
Author Organization [facility] Address [address] [facility] [place] [address] Care Team Providers Care Foam Gun Operator Name Role Phone Delta Wade Primary Care Provider Jose Curz Harvey [phone] Encounters Encounter Location Date Provider Diagnosis [facility] [address] [place] [address] [place] [address] 07/22/2024 Jose Cruz Forde Plan Of Treatment No Information Progress Notes * GIANFRANCO DIAZDOB: [birth year] (59 yo F)Acc No.[id number]:07/22/2024 Patient: Jahaira HANNA GIANFRANCO Page Provider: Abdirahman Forde MD :1965 A ge:59 Y S ex:Female Date:07/22/2024 Address:[address] [place], [place] [phone] Pcp:Delta Wade * Electronic signature of Natasha Forde MD on 02/26/2025 at 06:24 AM RV REPAIRER Sign off status: Pending * Provider: Abdirahman Forde MD Date: 0 07/22/2024 Generated for Printi ng/Faxing/eTransmitting on: 1 04/29/2024 06:24 AM RV REPAIRER
--- OUTSIDE RECORDS SUMMARY | 2024-08-23 04:00 | XMS_ITS ---
Author Organization [facility] Address [address] [place] [phone] Care Team Providers Care Automation Architect Name Role Phone ( [facility] ), PHYSICIAN NOT IDENTIFIED Primary Care Provider DR. Dominguez Pate Unavailable [phone] REASON FOR VISIT TA - Filling Social History Sex Assigned At : Social History Observation Description Sex Assigned At Female Encounters Encounter Location Date Provider Diagnosis [address] [place] [address] [facility] Clinic [address] [place] [phone] 08/23/2024 Dominguez Mckay Plan Of Treatment No Information Progress Notes * DIAZ, ZhangaDOB:1965 (59 yo F)Acc No.[id number]:08/23/2024 Patient: Le Colindres Provider: Jahaira Mckay DDS :1965 A ge:59 Y S ex:Female Date:08/23/2024 Address:[address] [place], [place] [phone] Pcp:PHYSICIAN NOT IDENTIFIED ( [facility] ) Subjective: * Chief Complaints: * T A - Filling Billing Information: * Procedure Codes: * Electronic signature of DR. Dominguez Mckay DDS on 02/26/2025 at 06:23 AM UNHAIRER Sign off status: Pending * Provider: Jahaira Mckay DDS Date: 0 08/23/2024 Generated for Printi ng/Faxing/eTransmitting on: 1 04/29/2024 06:23 AM UNHAIRER
--- OUTSIDE RECORDS SUMMARY | 2024-09-07 02:30 | XMS_ITS ---
Author Organization [facility] Address [address] [place] [phone] Care Team Providers Care Mill Tender Washing Name Role Phone ( [facility] ), PHYSICIAN NOT IDENTIFIED Primary Care Provider DR. Dominguez Pate Unavailable [phone] REASON FOR VISIT TA causing alot of [place]-pt wants filling done- told pt it was a limited not restore appt Social History Sex Assigned At : Social History Observation Description Sex Assigned At Female Encounters Encounter Location Date Provider Diagnosis [address] [place] [address] Dental Clinic [address] [place] [phone] 09/07/2024 Dominguez Mckay Plan Of Treatment No Information Progress Notes * Zhang DIAZIvettB:1965 (59 yo F)Acc No.[id number]:09/07/2024 Patient: Le Colindres Provider: Jahaira Mckay DDS :1965 A ge:59 Y S ex:Female Date:09/07/2024 Address:[address] [place], [place] [phone] Pcp:PHYSICIAN NOT IDENTIFIED ( [facility] ) Subjective: * Chief Complaints: * T A causing alot of [place]-pt wants filling done- told pt it was a limited not restore appt Billing Information: * Procedure Codes: * Electronic signature of DR. Dominguez Mckay DDS on 02/26/2025 at 06:21 AM QUANTITATIVE MANAGER Sign off status: Pending * Provider: Jahaira Mckay DDS Date: 0 09/07/2024 Generated for Mani contreras/Moshe/Binta on: 1 04/29/2024 06:21 AM QUANTITATIVE MANAGER
--- OUTSIDE RECORDS SUMMARY | 2025-01-16 02:00 | XMS_ITS ---
Author Organization [facility] Address [address] [place] [phone] Care Team Providers Care Track Sweeper Name Role Phone ( [facility] ), PHYSICIAN NOT IDENTIFIED Primary Care Provider DR. Dominguez Pate Unavailable [phone] REASON FOR VISIT wants 4 teeth pulled Social History Sex Assigned At : Social History Observation Description Sex Assigned At Female Encounters Encounter Location Date Provider Diagnosis [address] [place] [address] Dental Clinic [address] [place] [phone] 01/16/2025 Dominguez Mckay Plan Of Treatment No Information Progress Notes * Zhang DIAZIvettB:1965 (59 yo F)Acc No.[id number]:01/16/2025 Patient: Le Colindres Provider: Jahaira Mckay DDS :1965 A ge:59 Y S ex:Female Date:01/16/2025 Address:[address] [place], [place] [id number] Pcp:PHYSICIAN NOT IDENTIFIED ( [facility] ) Subjective: * Chief Complaints: * W ants 4 teeth pulled Billing Information: * Procedure Codes: * Electronic signature of DR. Dominguez Mckay DDS on 02/26/2025 at 06:22 AM OUTPATIENT COORDINATOR Sign off status: Pending * Provider: Jahaira Mckay DDS Date: Generated for Printi ng/Faxing/eTransmitting on: 1 04/29/2024 06:22 AM OUTPATIENT COORDINATOR
--- OUTSIDE RECORDS SUMMARY | 2025-02-23 16:00 | XMS_ITS | Encounter Summary ---
[facility] Organization [facility] Address [address] [place] [address] Care Team Providers Care Sample Preparation Supervisor Name Role Phone Marcia Claros MD Primary Care Provider [phone] Reason for Referral * Medication Prior Authorization - Pending Review Specialty Diagnoses / Procedures Referred By Marcelle t Referred To Contact Diagnoses Congestive heart failure, unspecified HF chronicity, unspecified heart failure type (CMS/HCC) Marcia Claros MD [address] [address] Phone: tel: fax: Referral ID Status Reason Start Date Expiration Date V isits Requested Visits Authorized [id number] Pending Review [address] [employer] * Hospice (Routine) - Closed Specialty Diagnoses / Procedures Referred By Contteri t Referred To Contact Diagnoses Acute respiratory failure with hypoxia and hypercapnia (CMS/HCC) Centrilobular emphysema (CMS/HCC) Marcia Claros MD [address] [address] Phone: tel: fax: Hospice [facility] [address] [address] Phone: tel: fax: Referral ID Status Reason Start Date Expiration Date Visits Re quested Visits Authorized [id number] Closed 02/23/2025 02/23/[address] [employer] Reason for Visit * Reason Comments Establish Care Referral Request Hospice Encounter Details Date Type Department Care Team (Latest Contact Info) Description 02/23/2025 4:[address] [employer] Office Visit [facility] [address] [address] Marcia Claros MD [address] [address] Centrilobular emphysema (CMS/HCC) (Primary Dx); Acute respiratory failure with hypoxia and hypercapnia (CMS/HCC); Type 2 diabetes mellitus without complication, without long-term current use of insulin (CMS/HCC); Congestive heart failure, unspecified HF chronicity, unspecified heart failure type (CMS/HCC); Paroxysmal atrial flutter (CMS/HCC) Social History Tobacco Use Types Packs/Day Years [...] How often do you attend [facility] or judaism services? More than 4 times per year 06/13/2019 Do you belong to any clubs o r organizations such as muslim groups, unions, fraternal or athletic groups, or [...] you can t pay for food? No 01/21/2025 Transportation Needs Answer Date Record ed Have you gone without health care because you didn t have a way to get there? Or worry about transportation for future doctor visits, medicinal plant picker medication, etc.? No 2024 Housing Stability Answer Date Recorded Do you worry you won t have a steady place to sleep or struggle to pay rent or mortgage? No 01/21/2025 Utility Needs Answer Date Recorded Do you have difficulty payin g for utility costs (electric, water or gas bills)? No 01/21/2025 Medication Needs Answer Date Recorded Have you skipped taking medi cation due to cost or worry you can t afford new medications? No 01/21/2025 Feeling Safe Answer Date Recorded Are you in a relationship wi th someone who hurts you emotionally and/or physically? No 01/21/2025 Food Insecurity Answer Date Recorded Patient needs follow up regardin 11/29/2024 Transportation Needs Answer Date Record ed Patient needs follow up regardin 11/24/2024 Housing Stability Answer Date Recorded Social/Environmental Concerns No concerns Utility Needs Answer Date Recorded Patient needs follow up regardin 11/29/2024 Comments No Sex and Gender Information Value Date Recorded Sex Assigned at Not on file Legal Sex Female 11:49 PM [address] [employer] Gender Identity Not on file Sexual Orientation Not on file documented as of this encounter Last Filed Vital Signs Vital Sign Reading Time Taken Comments Blood Pressure 126/70 02/23/2025 3:50 [address] [employer] Pulse 100 02/23/2025 3:50 PM [address] [employer] Temperature 36.6 C (97.9 F) 02/23/2025 3:50 PM [address] [employer] Respiratory Rate 16 02/23/2025 3:50 PM [address] [employer] Oxygen Saturation 96% 02/23/2025 3:50 PM [address] [employer] Inhaled Oxygen Concentration - - Weight 94.3 kg (208 lb) 02/23/2025 3:50 PM [address] [employer] Height 165.1 cm (5' 5 ) 02/23/2025 3:50 PM [address] [employer] Body Mass Index 34.61 02/23/2025 3:50 PM [address] [employer] documented in this encounter Progress Notes * Marcia Claros MD - 02/23/2025 3:52 PM CST HISTORY OF PRESENT ILLNESS Le Barnhart, a 59 y.o. 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 Former smoker Z87.891 Mixed hyperlipidemia E78.2 H/O vaginal surgery Z98.890 Atherosclerosis of [place] coronary artery of [place] heart without angina pectoris I25.10 Asthma J45.909 Chronic pain syndrome G89.4 Osteoarthritis of cervical spine M47.812 HEENA (generalized anxiety disorder) F41.1 GERD (gastroesophageal reflux disease) K21.9 Opioid dependence ([facility]) F11.20 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 History of breast cancer Z85.3 Type 2 diabetes mellitus without complication, without long-term current use of insulin ([facility]) E11.9 H/O mastectomy, right Z90.11 Closed nondisplaced fracture of body of left scapula S42.115D Hematoma of spleen after procedure on spleen D78.31 Splenic cyst D73.4 Adynamic ileus ([facility]) K56.0 Protein-calorie malnutrition, moderate E44.0 History of splenectomy Z90.81 History of pulmonary embolism Z86.711 Hot flashes R23.2 Snoring R06.83 Daytime somnolence R40.0 Non-proliferative diabetic retinopathy, left eye ([facility]) E11.3292 Nuclear age-related cataract, both eyes H25.13 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 vein occlusion with neovascularization of right eye ([facility]) H34.8111 Neuropathy G62.9 Hammertoe of left foot M20.42 Chronic respiratory failure with hypoxia, on home O2 therapy ([facility]) J96.11, Z99.81 Anemia D64.9 HFrEF (heart failure with reduced ejection fraction) ([facility]) I50.20 Chronic combined systolic and diastolic heart failure ([facility]) I50.42 Vagina absent Q52.0 Insulin dependent type 2 diabetes mellitus ([facility]) E11.9, Z79.4 Benign hypertension I10 CAD (coronary atherosclerotic disease) I25.10 Morbid obesity due to excess calories ([facility]) E66.01 Chronic anticoagulation Z79.01 Fall W19.XXXA L1 vertebral fracture ([facility]) S32.019A Closed compression fracture of body of L1 vertebra ([facility]) S32.010A Back pain M54.9 At risk for obstructive sleep apnea Z91.89 Centrilobular emphysema ([facility]) J43.2 Essential hypertension I[address] R93.89 Diabetes mellitus with hyperglycemia ([facility]) E11.65 Hepatic steatosis K76.0 COPD exacerbation ([facility]) J44.1 Consolidation of left lower lobe of lung J18.1 Left arm swelling M79.89 Type 2 diabetes mellitus with hyperglycemia, with long-term current use of insulin (CMS/[facility]) E11.65, Z79.4 Demand ischemia of myocardium (CMS/HCC) I24.89 Increased abdominal girth R19.8 Abdominal pain, acute, right upper quadrant R10.11 Obesity (BMI 30-39.9) E66.9 H/O heart artery stent Z95.5 Paroxysmal atrial flutter (CMS/HCC) I48.92 Bilateral sciatica M54.31, M54.32 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 HENT: Negative for sore throat. Respiratory: Negative for cough and shortness of breath. All other systems reviewed and are negative. Objective PHYSICAL EXAM BP 126/70 Pulse 100 Temp 97.9 ??F (36.6 ??C) (Temporal) Resp 16 Ht 5' 5 (1.651 m) Wt 94.3 kg (208 lb) SpO2 96% BMI 34.61 kg/m?? Physical Exam Vitals reviewed. Constitutional: General: She is not in acute distress. Appearance: Normal appearance. HENT: Head: Normocephalic and atraumatic. Nose: Nose normal. Eyes: Extraocular Movements: Extraocular movements intact. Conjunctiva/sclera: Conjunctivae normal. Cardiovascular: Rate and Rhythm: Normal rate and regular rhythm. Heart sounds: Normal heart sounds. Pulmonary: Effort: Pulmonary effort is normal. No respiratory distress. Breath sounds: Normal breath sounds. No wheezing or rales. Abdominal: General: Bowel sounds are normal. There is no distension. Palpations: Abdomen is soft. Tenderness: There is no abdominal tenderness. Skin: General: Skin is warm and dry. Neurological: General: No focal deficit present. Mental Status: She is alert and oriented to person, place, and time. Psychiatric: Mood and Affect: Mood normal. Behavior: Behavior normal. Behavior is cooperative. Results for orders placed or performed in visit on 02/23/25 (from the past 24 hours) POC GLUCOSE Result Value Ref Range GLUCOSE POC 199 (A) 65 - 99 mg/dL SPECIMEN SOURCE, GLUCOSE POC INTERNAL KIT QC POC Pass Pass KIT LOT NUMBER POC [id number] KIT EXP DATE POC 01/13/2026 Assessment ASSESSMENT and PLAN: ICD-10-CM ICD-9-CM 1. Centrilobular [place]ysema [place] J43.2 492.8 AMB REFERRAL TO HOSPICE Previously on hospice Desires readmission Referal sent Discussed what hospice involves and desires admission 2. Acute respiratory failure with hypoxia and hypercapnia ([facility]) J96.01 518.81 AMB REFERRAL TO HOSPICE J96.02 Stable on continuous oxygen 3. Type 2 diabetes mellitus without complication, without long-term current use of insulin [place] E11.9 250.00 empagliflozin (JARDIANCE) 10 mg tablet POC GLUCOSE Glucose 199 today Restart Lantus per request Monitor at home for hypoglycemia Last HgA1c 10.4 Planned hospice admission 4. Congestive heart failure, unspecified HF chronicity, unspecified heart failure type ([facility]) I50.9 428.0 isosorbide mononitrate (IMDUR) 30 mg Extended Release 24 hour tablet sacubitriL-valsartan (ENTRESTO) 24-26 mg Tablet Compensated Cont Jardiance/metoprolol/Lasix/Entresto 5. Paroxysmal atrial flutter [place] I48.92 427.32 Rate controlled Cont Eliquis Marcia Claros MD Outpatient Medications Marked as Taking for the 02/23/25 encounter (Office Visit) with William Claros MD Medication Sig Dispense Refill LORazepam (ATIVAN) 0.5 mg tablet TAKE 1 TABLET BY MOUTH TWICE DAILY FOR FOR ANXIETY promethazine (PHENERGAN) 25 mg tablet Take 25 mg by mouth every 6 hours as needed for Nausea. empagliflozin (JARDIANCE) 10 mg tablet Take 1 Tablet (10 mg) by mouth daily in the morning. 100 Tablet 3 hydrOXYzine HCL (ATARAX) 25 mg tablet Take 1 Tablet (25 mg) by mouth every 6 hours as needed for Anxiety. 120 Tablet 5 isosorbide mononitrate (IMDUR) 30 mg Extended Release 24 hour tablet Take 1 Tablet (30 mg) by mouthdaily. 90 Tablet 3 meclizine (ANTIVERT) 12.5 mg tablet Take 1 Tablet (12.5 mg) by mouth 3 times daily. 90 Tablet 5 metoprolol succinate (TOPROL XL) 25 mg Extended Release 24 hour tablet Take 1 Tablet (25 mg) by mouth daily. 90 Tablet 3 pantoprazole (PROTONIX) 40 mg Tablet, Delayed Release (E.C.) Take 1 Tablet (40 mg) by mouth daily before breakfast. 90 Tablet 3 potassium CHLORIDE (KLOR-CON) 10 mEq Extended Release tablet Take 1 Tablet (10 mEq) by mouth 2 times daily with meals. 180 Tablet 3 sacubitriL-valsartan (ENTRESTO) 24-26 mg Tablet Take 1 Tablet by mouth 2 times daily. 180 Tablet 3 amitriptyline (ELAVIL) 25 mg tablet Take 1 Tablet (25 mg) by mouth daily at bedtime. 90 Tablet 3 insulin glargine (LANTUS) 100 unit/mL pen syringe Inject 45 Units by subcutaneous injection 2 timesdaily. 15 mL 3 Insulin [place], Disposable, (Comfort EZ Pen [place]) 31 gauge x 1/4 Needle Use with insulin pens as prescribed 100 Each 3 apixaban (ELIQUIS) 5 mg tablet Take 1 Tablet (5 mg) by mouth 2 times daily. 60 Tablet 1 ipratropium-albuteroL (DUONEB) 0.5 mg-3 mg(2.5 mg base)/3 mL Solution for Nebulization Take 3 mL byinhalation every 4 hours as needed for Shortness of Breath. 300 mL 1 albuterol sulfate HFA 90 mcg/actuation aerosol inhaler Take 2 Puffs by inhalation every 6 hours as needed for Shortness of Breath. 8.5 Gram 5 levalbuterol (XOPENEX) 1.25 mg/3 mL Solution for Nebulization Take 3 mL (1.25 mg) by inhalation every 6 hours as needed for Shortness of Breath or Wheezing. 300 mL 3 furosemide (LASIX) 80 mg tablet Take 1 Tablet (80 mg) by mouth 2 times daily. 60 Tablet 3 sertraline (ZOLOFT) 50 mg tablet Take 50 mg by mouth daily. rOPINIRole (REQUIP) 0.5 mg tablet Take 0.5 mg by mouth daily at bedtime. acetaminophen (TYLENOL) 325 mg tablet Take 2 Tablets (650 mg) by mouth every 6 hours as needed for Pain, Mild / Temperature (.). HYDROcodone-acetaminophen (NORCO) 7.5-325 mg Tablet Take 1 Tablet by mouth every 8 hours as needed for Pain, Moderate or Pain, Severe. Nebulizer & Compressor For Neb Device every 4 hours as needed for Other (See Comment) (shortness of breath). 1 Each 0 Ventolin HFA 90 mcg/actuation inhaler Take 2 Puffs by inhalation every 6 hours as needed. nitroglycerin (NITROSTAT) 0.4 mg Tablet, Sublingual Place 0.4 mg under tongue. aspirin (CARTER CHEWABLE) 81 mg Tablet, Chewable Take 81 mg by mouth daily. portable oxygen Face to Face completed within 30 days: yes Length of Need: 99 months By: Nasal Cannula Continuously at 3 L/min. 1 Each 0 naloxone (NARCAN) 4 mg/spray [place], Non-Aerosol EMERGENCY USE ONLY: Administer 1 spray [...] to TID PRN symptoms. [address] [employer] documented in this encounter Plan of Treatment Upcoming Encounters Date Type Department Care Team (Latest Contact Info) Description 03/22/2025 10:30 AM [address] [employer] Hospital Encounter [facility] [address] [place] [phone] Kumar Ochoa MD [address] [facility] [address] [place] [address] Combined forms of age-related cataract of right eye 08/24/2025 2:20 PM CDT Office Visit [address] [address] Marcia Claros MD [address] [address] Scheduled Procedures Name Priority Associated Diagnoses Date/Ti me CATARACT EXTRACTION IOL INSERTION FEMTO LASER ASSISTED LEVEL 1 Combined forms of age-related cataract of right eye Right retinal detachment 03/22/2025 7:35 [address] [employer] PARS PLANA VITRECTOMY WITH LASER Combined forms of age-related cataract of right eye Right retinal detachment 03/22/2025 7:35 AM [address] [employer] EYE PLACEMENT OF SILICONE OIL Combined forms of age-related cataract of right eye Right retinal detachment 03/22/2025 7:35 [address] [employer] Scheduled Referrals Name Type Priority Associated Diagnoses Orde r Schedule AMB REFERRAL TO HOSPICE Outpatient Referral Routine Acute respiratory failure with hypoxia and hypercapnia (CMS/HCC) Centrilobular emphysema ([facility]) Ordered: 02/23/2025 documented as of this encounter Goals Goal Patient Goal Type Associated Problems Recent Progress Patient-Stated? Author Heart Failure Goal Care Plan Heart Failure Problem No Latonya Anguiano LPN Autogenerated Goal Care Plan Autogenerated Problem No Windy Dubois documented as of this encounter Procedures Procedure Name Priority Date/Time Associated Diagnosis Comments POC GLUCOSE Routine 02/23/2025 4:31 PM [address] [employer] Type 2 diabetes mellitus without complication, without long-term current use of insulin (CMS/[facility]) documented in this encounter Results * (ABNORMAL) POC GLUCOSE (02/23/2025 4:31 PM [address] [employer]) GLUCOSE POC 199(A) 65 - 99 mg/dL [facility] SPECIMEN SOURCE, GLUCOSE POC [facility] INTERNAL KIT QC POC Pass Pass [facility] KIT LOT NUMBER POC [id number] [phone] [facility] KIT EXP DATE POC 01/13/2026 [facility] Blood, capillary 02/23/2025 4:31 PM [address] [employer] us Marcia Claros MD POINT OF CARE TESTING Jana flores Result [facility] CLIA# [id number] [address] [place] [id number] documented in this encounter Visit Diagnoses Diagnosis Centrilobular emphysema (CMS/HCC)- Primary Other emphysema Acute respiratory failure with hypoxia and hypercapnia ([facility]) Type 2 diabetes mellitus without complication, without long-term current use of insulin ([facility]) Congestive heart failure, unspecified HF chronicity, unspecified heart failure type ([facility]) Paroxysmal atrial flutter ([facility]) Atrial flutter documented in this encounter Additional Health Concerns Active Problems Noted Date Diagnosed Date Heart Failure Problem 05/12/2024 Autogenerated Problem 01/25/2025 documented as of this encounter Care Teams Sample Preparation Supervisor Relationship Specialty Start Date End Date Marcia Claros MD [address] [place] [phone] PCP - General Family Practice 02/23/25 documented as of this encounter
[2025-02-26 06:19] VITALS: BP 142/75; PULSE 104; RESP 18; TEMP 36.8; O2SAT 91; BMI 38.6
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
--- OUTSIDE RECORDS SUMMARY | 2025-02-26 06:22 | XMS_ITS | Clinical Summary ---
Author Organization [facility] Address [address] [place] [address] Phone Care Team Providers Care Hvac Maintenance Technician Name Role Phone Marcia Claros MD Primary Care Provider [phone] Allergies Active Allergy Reactions Criticality Noted Date [...] complication, without long-term current use of insulin ([facility]) Use to test blood glucose up to TID PRN symptoms. 1 Each 023 Active blood sugar diagnostic StripIndication s:Type 2 diabetes mellitus without complication, without long-term current use of insulin ([facility]) Use to test blood glucose up to QID PRN symptoms. 100 Each 11 023 Active naloxone (NARCAN) 4 mg/spray [place], Non-Aerosol EMERGENCY USE ONLY: Administer 1 spray [...] at 3 L/min. 1 Each 024 Active aspirin (CARTER CHEWABLE) 81 mg Tablet, Chewable Take 81 mg by mouth daily. Active nitroglycerin (NITROSTAT) 0.4 mg Tablet, Sublingual Place 0.4 mg under tongue. 025 Active Ventolin HFA 90 mcg/actuation inhaler Take 2 Puffs by inhalation every 6 hours as needed. Active Nebulizer & Compressor For Neb Device every 4 hours as needed for Other (See Comment) (shortness of breath). 1 Each 025 Active HYDROcodone-miri taminophen (NORCO) 7.5-325 mg Tablet Take 1 Tablet by mouth every 8 hours as needed for Pain, Moderate or Pain, Severe. Active acetaminophen (TYLENOL) 325 mg tablet Take 2 Tablets (650 mg) by mouth every 6 hours as needed for Pain, Mild / Temperature (.). 025 Active sertraline (ZOLOFT) 50 mg tablet Take 50 mg by mouth daily. Active rOPINIRole (REQUIP) 0.5 mg tablet Take 0.5 mg by mouth daily at bedtime. Active levalbuterol (XOPENEX) 1.25 mg/3 mL Solution for Nebulization Take 3 mL (1.25 mg) by inhalation every 6 hours as needed for Shortness of Breath or Wheezing. 300 mL 3 Active furosemide (LASIX) 80 mg tablet Take 1 Tablet (80 mg) by mouth 2 times daily. 60 Tablet 3 Active ipratropium-alb uteroL (DUONEB) 0.5 mg-3 mg(2.5 mg base)/3 mL Solution for Nebulization Take 3 mL by inhalation every 4 hours as needed for Shortness of Breath. 300 mL 1 Active albuterol sulfate HFA 90 mcg/actuation aerosol inhaler Take 2 Puffs by inhalation every 6 hours as needed for Shortness of Breath. 8.5 Gram 5 Active apixaban (ELIQUIS) 5 mg tablet Take 1 Tablet (5 mg) by mouth 2 times daily. 60 Tablet 1 025 2024 Active LORazepam (ATIVAN) 0.5 mg tablet TAKE 1 TABLET BY MOUTH TWICE DAILY FOR FOR ANXIETY Active promethazine (PHENERGAN) 25 mg tablet Take 25 mg by mouth every 6 hours as needed for Nausea. Active empagliflozin (JARDIANCE) 10 mg tabletIndicatio ns:Type 2 diabetes mellitus without complication, without long-term current use of insulin (CMS/HCC) Take 1 Tablet (10 mg) by mouth daily in the morning. 100 Tablet 3 Active hydrOXYzine HCL (ATARAX) 25 mg tablet Take 1 Tablet (25 mg) by mouth every 6 hours as needed for Anxiety. 120 Tablet 5 Active isosorbide mononitrate (IMDUR) 30 mg Extended Release 24 hour tabletIndicatio ns:Congestive heart failure, unspecified HF chronicity, unspecified heart failure type (CMS/HCC) Take 1 Tablet (30 mg) by mouth daily. 90 Tablet 3 Active meclizine (ANTIVERT) 12.5 mg tablet Take 1 Tablet (12.5 mg) by mouth 3 times daily. 90 Tablet 5 Active metoprolol succinate (TOPROL XL) 25 mg Extended Release 24 hour tablet Take 1 Tablet (25 mg) by mouth daily. 90 Tablet 3 Active pantoprazole (PROTONIX) 40 mg Tablet, Delayed Release (E.C.) Take 1 Tablet (40 mg) by mouth daily before breakfast. 90 Tablet 3 Active potassium CHLORIDE (KLOR-CON) 10 mEq Extended Release tablet Take 1 Tablet (10 mEq) by mouth 2 times daily with meals. 180 Tablet 3 Active sacubitriL-vals treva (ENTRESTO) 24-26 mg TabletIndicatio ns:Congestive heart failure, unspecified HF chronicity, unspecified heart failure type (CMS/HCC) Take 1 Tablet by mouth 2 times daily. 180 Tablet 3 Active amitriptyline (ELAVIL) 25 mg tablet Take 1 Tablet (25 mg) by mouth daily at bedtime. 90 Tablet 3 Active insulin glargine (LANTUS) 100 unit/mL pen syringe Inject 45 Units by subcutaneous injection 2 times daily. 15 mL 3 Active Insulin Stuart, Disposable, (Comfort EZ Pen Stuart) 31 gauge x 1/4 Needle Use with insulin pens as prescribed 100 Each 3 Active isosorbide mononitrate (IMDUR) 30 mg Extended Release 24 hour tabletIndicatio ns:Chest pain, unspecified type,Congestive heart failure, unspecified HF chronicity, unspecified heart failure type (CMS/HCC) TAKE 1 TABLET BY MOUTH EVERY DAY 30 Tablet 1 2024 Discontinued(R eorder) empagliflozin (JARDIANCE) 10 mg tablet Take 1 Tablet (10 mg) by mouth daily in the morning. 30 Tablet 2024 Discontinued(R eorder) amitriptyline (ELAVIL) 25 mg tablet Take 25 mg by mouth daily. 2024 Discontinued(R eorder) meclizine (ANTIVERT) 12.5 mg tablet Take 1 Tablet (12.5 mg) by mouth 3 times daily. 15 Tablet 2024 Discontinued(R eorder) insulin glargine-yfgn 100 unit/mL pen syringe Inject 45 Units by subcutaneous injection 2 times daily. 15 mL 2024 Discontinued metoprolol succinate (TOPROL XL) 25 mg Extended Release 24 hour tablet Take 1 Tablet (25 mg) by mouth daily. 30 Tablet 3 2024 Discontinued(R eorder) sacubitriL-vals treva (ENTRESTO) 24-26 mg Tablet Take 1 Tablet by mouth 2 times daily. 60 Tablet 3 2024 Discontinued(R eorder) pantoprazole (PROTONIX) 40 mg Tablet, Delayed Release (E.C.) Take 1 Tablet (40 mg) by mouth daily before breakfast. 30 Tablet 2024 Discontinued(R eorder) tiotropium-olod ateroL (STIOLTO RESPIMAT) 2.5-2.5 mcg/actuation metered inhaler Take 2 Puffs by inhalation daily. 4 Gram 5 lidocaine (LIDODERM) 5 % Adhesive Patch, Medicated Apply 1 Patch to affected area every 24 hours. 30 Patch 2024 OLANZapine (ZyPREXA) 10 mg tablet Take 1 Tablet (10 mg) by mouth daily at bedtime. 30 Tablet 2024 hydrOXYzine HCL (ATARAX) 25 mg tablet Take 1 Tablet (25 mg) by mouth every 6 hours as needed for Anxiety. 20 Tablet 2024 Discontinued(R eorder) potassium CHLORIDE (KLOR-CON) 10 mEq Extended Release tablet Take 1 Tablet (10 mEq) by mouth 2 times daily with meals. 60 Tablet 1 2024 Discontinued(R eorder) warfarin (COUMADIN) 10 mg tablet 10 mg. 024 2024 Discontinued(A lternate therapy prescribed) Active Problems Problem Noted Date Diagnosed Date [...] 03/07/2024 Nuclear age-related cataract, both eyes 03/07/20 24 Vitreomacular adhesion of right eye 03/07/2024 Central [...] 06/14/2019 H/O vaginal surgery 06/14/2019 Atherosclerosis of tanana co ronary artery of tanana heart without angina pectoris 06/14/2019 Former smoker [...] Staging:Clinical:FIGO Stage III- Signed by Jenniffer Lepe APRN-RANDAL on 09/29/2019 Carcinoma in situ of vagina 06/16/2019 12/02/2022 Urinary incontinence 07/30/2011 025 Breast mass 08/22/2010 12/02/2022 Anxiety with depression 08/22/201011/21 Anxiety state 05/08/2010 12/02/2022 Encounters Date Type Department Care Team Description 02/23/2025 4:00 PM [employer] Office Visit [address] [address] Marcia Claros MD Centrilobular emphysema (CMS/HCC) (Primary Dx); Acute respiratory failure with hypoxia and hypercapnia (CMS/HCC); Type 2 diabetes mellitus without complication, without long-term current use of insulin (CMS/HCC); Congestive heart failure, unspecified HF chronicity, unspecified heart failure type (CMS/HCC); Paroxysmal atrial flutter (CMS/HCC) 02/22/2025 Telephone [facility] [address] [facility] [address] [place] [phone] Ryann Bukr MD Wants Appointment 02/20/2025 Telephone [facility] [place] [address] [facility] [address] [place] [phone] Kumar Ochoa MD Surgery Talk (Called patient and discussed rescheduling her surgery combo to a later date; patient became upset, used profanity, and then hung up.) 01/23/2025 Travel 01/21/2025 5:49 PM CDT - 01/21/2025 10:28 PM CDT Emergency [facility] Emergency Department [address] [place] [phone] Kay Majano MD Shortness of breath (Primary Dx) Discharge Disposition: Home or Self Care 01/17/2025 9:48 PM CDT - 01/19/2025 11:29 AM CDT Hospital Encounter [facility] Medical Telemetry [address] [place] [phone] MohDave chirinos MD Sundaram, Vignesh, MD Allam, Bala Sudhakar Reddy, MD Centrilobular emphysema (CMS/HCC) Discharge Disposition: Home or Self Care 01/17/2025 Travel 01/12/2025 Mobile Encounter [facility] ield [address] [place] [address] Kapil Deluna DO 01/11/2025 5:53 PM CDT - 01/11/2025 9:31 PM CDT Emergency [facility] Emergency Department [address] [place] [address] Aki Briceno DO COPD with exacerbation ([facility]) (Primary Dx) Discharge Disposition: Home or Self Care 01/11/2025 Travel 01/07/2025 10:54 PM CDT - 01/09/2025 12:29 PM CDT Hospital Encounter [facility] 4B Cardiac [address] [place] [address] Tresa Mueller MD Patel, Taksh, MD Bajor, Conrad Mitchell, DO Chronic combined systolic and diastolic heart failure ([facility]/HCC) Discharge Disposition: Home or Self Care 01/05/2025 Telephone [facility] [address] [place] [address] Veronika Yusuf, RN Anticoagulation 01/05/2025 Results Follow-Up [facility] Emergency Department [address] [place] [address] Ayana Roman, RN BLOOD CULTURE, BLOOD CULTURE 01/04/2025 6:42 AM CDT - 01/06/2025 3:08 PM CDT [facility] [address] [place] [address] Heike Camarillo MD McGinnis, Melissa Mae, MD Jaoudeh, Marwan, MD Chronic combined systolic and diastolic heart failure (CMS/HCC) Discharge Disposition: Home or Self Care 01/04/2025 Travel 01/03/2025 6:55 PM CDT - 01/03/2025 10:03 PM CDT Emergency [facility] Emergency Department [address] [place] [phone] Edmundo Cates DO COPD with exacerbation ([facility]) (Primary Dx) Discharge Disposition: Home or Self Care 12/28/2024 2:19 AM CDT - 12/29/2024 12:02 PM CDT Hospital Encounter [facility] Medical Telemetry [address] [place] [phone] aTrik Albert MD Brooks, Cynthia J, DO Norman, Ryan Michael, DO CAD (coronary atherosclerotic disease) Discharge Disposition: Home or Self Care 12/28/2024 Travel 12/23/2024 10:38 PM CDT - 12/24/2024 5:50 AM CDT Emergency [facility] Emergency Department [address] [place] [phone] Discharge Disposition: Left without being seen 12/23/2024 Orders Only [facility] [place] [address] [phone] Kumar Ochoa MD 12/22/2024 8:00 AM CDT Office Visit [facility] [place] [address] [phone] Kumar Ochoa MD Combined forms of age-related cataract of both eyes (Primary Dx); Right retinal detachment; Non-proliferative diabetic retinopathy, left eye ([facility]/HCC); Other specified disorders of iris and ciliary body 12/22/2024 7:45 AM CDT Chart Note [facility] [place] [address] [phone] Kumar Ochoa MD 12/22/2024 Telephone [facility] [place] [address] [phone] Kumar Ochoa MD Surgery Talk (Called patient and left voicemail requesting a return call to schedule surgery.) 12/17/2024 5:18 PM CDT - 12/19/2024 12:58 PM CDT Hospital Encounter [facility] 4B Cardiac [address] [place] [address] Bala Prieto MD Elgayesh, MD Juan Antonio Gracias Ravi V., MD COPD with exacerbation ([facility]/HCC) Discharge Disposition: Home or Self Care 12/16/2024 12:50 PM CDT Office Visit [facility] [place] [address] [phone] Eduardo Craven MD Right retinal detachment (Primary Dx); Nuclear sclerotic cataract of right eye 12/13/2024 Telephone [facility] [address] [place] [phone] Veronika Yusuf, RN Anticoagulation 12/09/2024 5:59 PM CDT - 12/13/2024 12:00 PM CDT Hospital Encounter [facility] 4D Surgery Heart Lung [address] [place] [address] Mikey Rudolph MD Melton, Gregory A, DO Almond, Toni L, MD COPD exacerbation ([facility]) Discharge Disposition: Home or Self Care 12/09/2024 Travel 11/29/2024 Telephone [facility] [address] [place] [address] Veronika Yusuf, RN Anticoagulation 11/28/2024 5:27 PM CDT - 12/02/2024 1:32 PM CDT Hospital Encounter [facility] 3D Medical Telemetry [address] [place] [address] Cassius Sanderson MD Abbas, Arango KhalidMD Dinah Foram Ashwinkumar, MD COPD exacerbation ([facility]) Discharge Disposition: Home or Self Care 11/27/2024 4:20 PM CDT - 11/27/2024 7:43 PM CDT Emergency [facility] Emergency Department [address] [place] [phone] Jonny Bowers MD Dyspnea, unspecified type (Primary Dx) Discharge Disposition: Home or Self Care from [...] PNEUM OCOCCAL CONJUGATE VACCINE 20-VALENT (PCV20), POLYSACCHARIDE [id number] CONJUGATE, ADJUVANT 0.5 ML (PF) IM 06/05/2023,12/02/2022,12/25/2021 [...] on file Legal Sex Female 11:49 PM [employer] Gender Identity Not on file Sexual Orientation Not on file Last Filed Vital Signs Vital Sign Reading Time Taken Comments Blood Pressure 126/70 02/23/2025 3:50 PM [employer] Pulse 100 02/23/2025 3:50 PM [employer] Temperature 36.6 C (97.9 F) 02/23/2025 3:50 PM [employer]ION Respiratory Rate 16 02/23/2025 3:50 PM [employer]OMEM[employer]ER [employer]ANION Oxygen Saturation 96% 02/23/2025 3:50 PM [employer]ANION Inhaled Oxygen Concentration - - Weight 94.3 kg (208 lb) 02/23/2025 3:50 PM [employer] Height 165.1 cm (5' 5 ) 02/23/2025 3:50 PM [employer]OMEM[employer]ER COMPANION Body Mass Index 34.61 02/23/2025 3:50 PM [employer]ION Plan of Treatment Upcoming Encounters Date Type Department Care Team (Latest Contact Info) Description 03/22/2025 10:30 AM [employer] Hospital Encounter [facility] [address] [place] [phone] Kumar Ochoa MD [address] [facility] [address] [place] [phone] Combined forms of age-related cataract of right eye 08/24/2025 2:20 PM CDT Office Visit [facility] [address] [phone] Marcia Claros MD [address] [phone] Scheduled Procedures Name Priority Associated Diagnoses Date/Ti me CATARACT EXTRACTION IOL INSERTION FEMTO LASER ASSISTED LEVEL 1 Combined forms of age-related cataract of right eye Right retinal detachment 03/22/2025 7:35 AM [employer] PARS PLANA VITRECTOMY WITH LASER Combined forms of age-related cataract of right eye Right retinal detachment 03/22/2025 7:35 AM [employer] EYE PLACEMENT OF SILICONE OIL Combined forms of age-related cataract of right eye Right retinal detachment 03/22/2025 7:35 AM [employer]ION Health Maintenance Due Date Last Done Comments DIABETES ANNUAL FOOT EXAM 07/12/1983 HEPATITIS B VACCINES (1 of 3 - 19+ 3-dose series) 1984 FIT-DNA Q 3 years 2010 FIT/FOBT Q 1 year 2010 Flex Sig/CT Colonography Q 5 years 2010 COLORECTAL SCREENING 01/23/2014 01/23/2011, 09/20/19 11 Colorectal Cancer Screening 01/23/2014 Lung Cancer Screening 07/12/2015 ZOSTER VACCINE (1 of 2) 07/12/2015 Preventative Visit-Managed Medicaid 01/08/2024 01/06/2023 DIABETES MICROALBUMIN ANNUAL SCREEN 02/27/2024 02/26/2023 INFLUENZA VACCINE (#1) 2024 4, 12/02/2022, 12/25/2021, Additional history exists COVID-19 Vaccine ( season) 2024 10/02/2021, 02/27/2021, 05/23/2020, Additional history exists DIABETES: A1C (Auto Order) 01/31/202510/31, 07/28/2024, 02/19/2024, Additional history exists LDL CHOLESTEROL ANNUAL 02/18/2025 4, 06/23/2023, 02/26/2023, Additional history exists DIABETES HBA1C Q 6 MONTHS 05/03/20252024, 07/28/2024, 02/19/2024, Additional history exists BREAST CANCER SCREENING 05/24/2025 01/25/20 11, 01/24/2011, 01/03/2011 Postponed from 01/25/2012 (Patient Refused) DIABETES ANNUAL RETINAL EXAM 12/22/2025 12/22/2024, 12/22/2024, 12/22/2024, Additional history exists PAP SMEAR 01/06/2026 01/06/2023, 09/18/2021 CERVICAL CANCER SCREENING 01/07/2028 HPV/Cotest (21-29) 01/07/2028 01/06/2023 HPV/Cotest (30-65) 01/07/2028 01/06/2023 DTAP/TDAP/TD VACCINES (3 - Td or Tdap) 07/01/2032 07/01/2022, 03/24/2011 Goals Goal Patient Goal Type Associated Problems Recent Progress Patient-Stated? Author Heart Failure Goal Care Plan Heart Failure Problem No Latonya Anguiano LPN Autogenerated Goal Care Plan Autogenerated Problem No Windy [employer] Medical Devices Implanted Type Area Oven Worker Device Identifier Shelf Expiration Date Model / Serial / Lot Dev Closure Angioseal 6fr Vip [id number] - [id number] Implanted:Qty: 1 on 03/21/2024 by Kyler Helm MD at [facility] Closure Device Right: Groin TERUMO- CARDIOVASC SYS [id number] 10/25/2024 [id number] / / [id number] 93 Imp Toe Phalinx 10 Solid Angl Sml [id number] - [id number] Implanted:Qty: 1 on 07/20/2024 by Tereso Gil DPM at [facility] Toe Left: Foot [employer] 12/29/2031 [id number] / / [id number] Procedures Procedure Name Priority Date/Time Associated Diagnosis Comments POC GLUCOSE Routine 02/23/2025 4:31 PM [employer] Type 2 diabetes mellitus without complication, without long-term current use of insulin ([facility]) TROPONIN 2 HR, 5TH GEN Timed Study 5 7:27 PM CDT XR CHEST PA OR AP 1 VW Stat 5 6:25 PM CDT EKG 12-LEAD Stat 01/21/2025 6:12 PM CDT TROPONIN BASELINE, 5TH GEN Stat 01/21/2025 6:00 PM CDT BRAIN NATRIURETIC PEPTIDE, BNP OR PROBNP Stat 01/21/2025 6:00 PM CDT BASIC METABOLIC PANEL Stat 01/21/2025 6:00 PM CDT CBC WITH DIFFERENTIAL Stat 01/21/2025 6:00 PM CDT POC GLUCOSE Routine 01/19/2025 8:50 AM CDT CBC WITH DIFFERENTIAL Routine 01/19/2025 1:53 AM CDT BASIC METABOLIC PANEL Routine 01/19/2025 1:53 AM CDT EKG 12-LEAD Stat 01/19/2025 12:06 AM CDT POC GLUCOSE Routine 01/18/2025 9:24 PM CDT POC GLUCOSE Routine 01/18/2025 5:34 PM CDT BASIC METABOLIC PANEL Routine 01/18/2025 2:21 PM CDT EKG 12-LEAD Stat 01/18/2025 12:17 PM CDT POC GLUCOSE Routine 01/18/2025 11:33 AM CDT RT ASSESS AND TREAT Routine 01/18/2025 10:27 AM CDT POC GLUCOSE Routine 01/18/2025 7:39 AM CDT TROPONIN 6 HR, 5TH GEN Timed Study 6:22 AM CDT TROPONIN 2 HR, 5TH GEN Timed Study 5 2:32 AM CDT EXTRA TUBE (URINE [place]) Stat 01/18/2025 2:19 AM CDT URINALYSIS W/REFLEX MICROSCOPIC Stat 01/18/2025 2:19 AM CDT PT EVAL AND TREAT Stat 01/18/2025 1:4 7 AM CDT EKG 12-LEAD Stat 01/18/2025 1:38 AM CDT XR CHEST PA OR AP 1 VW Stat 10:48 PM CDT RESPIRATORY PATHOGEN PCR PANEL Stat 01/17/2025 10:40 PM CDT PROTIME-INR Stat 01/17/2025 10:28 PM CDT PTT Stat 01/17/2025 10:28 PM CDT D-DIMER Stat 01/17/2025 10:28 PM CDT TROPONIN BASELINE, 5TH GEN Stat 01/17/2025 10:28 PM CDT BRAIN NATRIURETIC PEPTIDE, BNP OR PROBNP Stat 01/17/2025 10:28 PM CDT COMPREHENSIVE METABOLIC PANEL Stat 01/17/2025 10:28 PM CDT CBC WITH DIFFERENTIAL Stat 01/17/2025 10:28 PM CDT EKG 12-LEAD Stat 01/17/2025 10:13 PM CDT BLOOD GAS ARTERIAL Stat 01/17/2025 10:10 PM CDT RT ASSESS AND TREAT IN ED Stat 01/17/2025 9:57 PM CDT RT ASSESS AND TREAT Stat 01/17/2025 9 :39 PM CDT CRITICAL CARE Routine 01/17/2025 9:32 PM CDT PROTIME-INR Stat 01/11/2025 6:21 PM CDT TROPONIN [...] AM CDT COPD EDUCATION RT Stat 12/28/2024 7:32 AM CDT XR CHEST PA OR AP [...] EKG 12-LEAD Stat 11/27/2024 2:36 PM CDT HEMOGLOBIN A1C Stat 10/31/2024 3:08 AM CDT LIPID PANEL Routine 02/19/2024 5:29 AM [employer] MICROALBUMIN/CREATININ E RATIO, RANDOM UR Routine 02/26/2023 3:01 PM [employer] Type 2 diabetes mellitus without complication, without long-term current use of insulin ([facility]) Wellness examination CERV/VAG CYTO SCREEN PAP W/HPV Routine 01/06/2023 12:00 AM CDT Wellness examination MAMMO DIAGNOSTIC UNI RIGHT W OR WO CAD Routine 01/24/2011 10:03 AM CDT Lump or mass in breast from Last 3 Months or Most Recently Relevant to Health Maintenance Results * (ABNORMAL) POC GLUCOSE (02/23/2025 4:31 PM [employer]) GLUCOSE POC 199(A) 65 - 99 mg/dL [facility] SPECIMEN SOURCE, GLUCOSE POC [facility] INTERNAL KIT QC POC Pass Pass [facility] KIT LOT NUMBER POC [id number] [facility] KIT EXP DATE POC 01/13/2026 [facility] Blood, capillary 02/23/2025 4:31 PM [employer] us Marcia Claros MD POINT OF CARE TESTING Jana l Result Performing Organization Address [facility] Co de Phone Number [facility] CLIA# [id number] [address] [place] [address] * (ABNORMAL) TROPONIN 2 HR, 5TH GEN (01/21/2025 7:27 PM CDT) Only the most recent of7 resultswithin the time period is included. Pathologist [facility] TROPONIN T, 2 HR 5TH GEN 25(H) <=10 ng/L 01/21/2025 8:13 PM CDT [facility] DELTA 2HR TROPONIN T 1 See Interp. 01/21/2025 8:13 PM CDT [facility] Blood Venipuncture / Unknown 01/21/2025 7:27 PM CDT 01/21/2025 7:39 PM CDT Narrative [facility] - 01/21/2025 8:13 PM CDT Troponin elevated. Delta not changing. us Kay Majano MD CHEMISTRY ORDERABLES Final Result Performing Organization Address [facility]/ZIP Co de Phone Number [facility] CLIA # [id number] [address] [place] [address] [place] [address] * XR CHEST PA OR AP 1 VW (01/21/2025 6:25 PM CDT) Only the most recent of11 resultswithin the time period is included. Anatomical Region Laterality Modality Chest Computed Radiogr aphy 01/21/2025 6:26 PM CDT Impressions 01/21/2025 7:08 PM CDT IMPRESSION: Please see below. Exam: XR CHEST PA OR AP 1 VW Date/Time of Exam: 01/21/2025 6:25 PM Reason For Exam: Shortness of Breath SOB. Diagnosis: See Reason for Exam. Findings: Comparison study 01/17/2025. No pleural effusion or pneumothorax. No consolidating airspace disease. Cardiac silhouette within normal limits. Imaged skeleton without gross acute pathology. Upper spinal hardware. Narrative Procedure Note Blanca Shell MD - 01/21/2025 IMPRESSION: Please see below. Exam: XR CHEST PA OR AP 1 VW Date/Time of Exam: 01/21/2025 6:25 PM Reason For Exam: Shortness of Breath SOB. Diagnosis: See Reason for Exam. Findings: Comparison study 01/17/2025. No pleural effusion or pneumothorax. No consolidating airspace disease. Cardiac silhouette within normal limits. Imaged skeleton without gross acute pathology. Upper spinal hardware. us Kay Majano MD DIAGNOSTIC IMAGING O RDERABLES Final Result * EKG 12-LEAD (01/21/2025 6:12 PM CDT) Only the most recent of19 resultswithin the time period is included. 01/21/2025 6:12 PM CDT Narrative INTERFACE SYSTEM - 01/22/2025 12:25 PM [facility] [address] [place] [address] Test Date: 2025-01-21 Pat Name: LE DIAZ Department: 11 Room: 21 21 Gender: Female Credit Specialist: kmanesSameera : 1965 Requested By: Order Number: [id number] Reading MD: Echo Tapia Measurements Intervals Lysite Rate: 113 P: 26 KS: 140 QRS: 69 QRSD: 86 T: 49 QT: 350 QTc: 480 Interpretive Statements Sinus tachycardia Cannot rule out Inferior infarct, age undetermined Abnormal ECG Electronically Signed On 01-22-2025 12:25:10 [employer] by Echo Tapia Procedure Note Provider, Historical - 01/22/2025 [facility] [address] [place] [address] Test Date: 2025-01-21 Pat Name: LE DIAZ Department: 11 Room: 21 21 Gender: Female Credit Specialist: [email or web address] : 1965 Requested By: Order Number: [id number] Reading MD: Echo Tapia Measurements Intervals Lysite Rate: 113 P: 26 KS: 140 QRS: 69 QRSD: 86 T: 49 QT: 350 QTc: 480 Interpretive Statements Sinus tachycardia Cannot rule out Inferior infarct, age undetermined Abnormal ECG Electronically Signed On 01-22-2025 12:25:10 [employer] by Echo Tapia Kay Majano MD ECG ORDERABLES Jana l Result INTERFACE SYSTEM Refer to clinic/hospital department * (ABNORMAL) TROPONIN BASELINE, 5TH GEN (01/21/2025 6:00 PM CDT) Only the most recent of10 resultswithin the time period is included. TROPONIN T, BASELINE 5TH GEN 24(H) <=10 ng/L 01/21/2025 6:44 PM CDT [facility] Blood Venipuncture / Unknown 01/21/2025 6:00 PM CDT 01/21/2025 6:13 PM CDT Narrative [facility] - 01/21/2025 6:44 PM CDT Troponin elevated. Kay Majano MD CHEMISTRY ORDERABLES Final Result Performing Organization Address City/[facility]/ZIP Co de Phone Number [facility] CLIA # [id number] [address] [facility] [facility] [place] [place] [address] * (ABNORMAL) CBC WITH DIFFERENTIAL (01/21/2025 6:00 PM CDT) Only the most recent of20 resultswithin the time period is included. [facility] WBC 11.1(H) 4.8 - 10.8 K/uL 01/21/2025 6:22 PM [facility] NRBCS 1(H) <1 % 01/21/2025 6:22 PM T [facility] RBC 3.81(L) 4.20 - 5.40 M/uL 01/21/2025 6:22 PM [facility] HEMOGLOBIN 11.1(L) 12.0 - 16.0 g/dL 01/21/2025 6:22 PM [facility] HEMATOCRIT 36.8 36.0 - 46.0 % 01/21/2025 6:22 PM [facility] MCV 96.6 84.0 - 103.0 fL 01/21/2025 6:22 PM [facility] MCH 29.1 27.0 - 34.0 pg 01/21/2025 6:22 PM [facility] MCHC 30.2 30.0 - 35.0 g/dL 01/21/2025 6:22 PM [facility] PLATELETS 231 140 - 440 K/uL 01/21/2025 6:22 PM [facility] MPV 12.1 8.9 - 12.8 fL 01/21/2025 6:22 PM [facility] RDW 19.7(H) 11.0 - 14.5 % 01/21/2025 6:22 PM [facility] RDW-STDEV 69.3(H) 37.0 - 54.0 fL 01/21/2025 6:22 PM [facility] NEUTROPHILS 70 42 - 75 % 01/21/2025 6:22 PM [facility] LYMPHOCYTES 17(L) 24 - 44 % 01/21/2025 6:22 PM CDT [facility] MONOCYTES 10 2 - 10 % 01/21/2025 6:22 PM CDT [facility] EOSINOPHILS 1 0 - 7 % 01/21/2025 6:22 PM CDT [facility] BASOPHILS 0 0 - 1 % 01/21/2025 6:22 PM CDT [facility] IMMATURE GRANULOCYTES 2 0 - 2 % 01/21/2025 6:22 PM CDT [facility] NEUTROPHIL ABSOLUTE 7.81 2.00 - 8.00 K/uL 01/21/2025 6:22 PM CDT [facility] LYMPHOCYTE ABSOLUTE 1.85 1.20 - 4.00 K/uL 01/21/2025 6:22 PM CDT [facility] MONOCYTE ABSOLUTE 1.14(H) 0.10 - 0.60 K/uL 01/21/2025 6:22 PM CDT [facility] EOSINOPHIL ABSOLUTE 0.10 0.00 - 0.70 K/uL 01/21/2025 6:22 PM CDT [facility] BASOPHILS ABSOLUTE 0.04 0.00 - 0.20 K/uL 01/21/2025 6:22 PM CDT [facility] IMMATURE GRANULOCYTES ABSOLUTE 0.18(H) 0.00 - 0.10 K/uL 01/21/2025 6:22 PM CDT [facility] SMEAR REVIEWED: NN - No Action Needed 01/21/2025 6:22 PM [facility] Blood Venipuncture / Unknown 01/21/2025 6:00 PM CDT 01/21/2025 6:12 PM CDT us Kay Majano MD HEMATOLOGY ORDERABLE S Final Result [facility] CLIA # [id number] [address] [address] [place], [place] [address] * (ABNORMAL) BRAIN NATRIURETIC PEPTIDE, BNP OR PROBNP (01/21/2025 6:00 PM CDT) Only the most recent of11 resultswithin the time period is included. PROBNP, N TERMINAL 243(H) 0 - 125 pg/mL 01/21/2025 6:48 PM CDT [facility] Comment: INTERPRETIVE COMMENT based on [...] years: >1800 pg/mL Blood Venipuncture / Unknown 01/21/2025 6:00 PM CDT 01/21/2025 6:13 PM CDT us Kay Majano MD CHEMISTRY ORDERABLES Final Result [facility] # [id number] [address] [place] [id number] * (ABNORMAL) BASIC METABOLIC PANEL (01/21/2025 6:00 PM CDT) Only the most recent of14 resultswithin the time period is included. Pathologist [facility] SODIUM 137 136 - 145 mmol/L 01/21/2025 6:53 PM CDT [facility] POTASSIUM 4.0 3.5 - 5.1 mmol/L 01/21/2025 6:53 PM CDT [facility] CHLORIDE 100 98 - 107 mmol/L 01/21/2025 6:53 PM CDT [facility] CO2 24 22 - 29 mmol/L 01/21/2025 6:53 PM CDT [facility] CALCIUM 9.8 8.6 - 10.0 mg/dL 01/21/2025 6:53 PM CDT [facility] BUN 16 6 - 20 mg/dL 01/21/2025 6:53 PM CDT [facility] CREATININE 0.51 0.51 - 0.95 mg/dL 01/21/2025 6:53 PM CDT [facility] GLUCOSE 345(H) 74 - 99 mg/dL 01/21/2025 6:53 PM CDT [facility] GFR >60 >=60 mL/min/1.7 3 sq meter 01/21/2025 6:53 PM CDT [facility] Comment:eGFR calculated with 2020 CKD-EPI equation. Vegetarian diet, extremely high or low muscle mass, and may affect results. Cystatin C with Glomerular Filtration Rate is a suitable alternative for these patients. ANION GAP 13 9 - 20 mmol/L 01/21/2025 6:53 PM CDT [facility] Blood Venipuncture / Unknown 01/21/2025 6:00 PM CDT 01/21/2025 6:13 PM CDT Kay Majano MD CHEMISTRY ORDERABLES Final Result [facility] CLIA # [id number] [address] [place] [phone] * (ABNORMAL) POC GLUCOSE (01/19/2025 8:50 AM CDT) Only the most recent of91 resultswithin the time period is included. GLUCOSE POC 310(H) 74 - 99 mg/dL 01/19/2025 8:50 AM CDT [facility] SPECIMEN SOURCE, GLUCOSE POC Capillary 01/19/2025 8:50 AM CDT [facility] Blood, whole 01/19/2025 8:50 AM CDT 01/19/2025 10:36 AM CDT Ronak Cortes MD POINT OF CARE TESTI NG Final Result Performing Organization Address [facility]/ZIP Co de Phone Number [facility] CLIA # [id number] [id number] [place], [place] [address] * (ABNORMAL) TROPONIN 6 HR, 5TH GEN (01/18/2025 6:22 AM CDT) Only the most recent of5 resultswithin the time period is included. TROPONIN T, 6 HR 5TH GEN 15(H) <11 ng/L 01/18/2025 6:56 AM CDT [facility] DELTA 6HR TROPONIN T -5 See Interp. 01/18/2025 6:56 AM CDT [facility] Blood Venipuncture / Unknown 01/18/2025 6:22 AM CDT 01/18/2025 6:26 AM CDT Narrative [facility] [employer] [facility] - 01/18/2025 6:56 AM CDT Troponin elevated. Delta indeterminate. Delay in collection of timed specimen beyond recommended collection interval. Results must be interpreted in clinical context. Derrick Maldonado MD CHEMISTRY ORDERABLES Final R esult Performing Organization Address [facility] Co de Phone Number [facility] CLIA # [id number] [address] [address] [place], [place] [address] * EXTRA TUBE (URINE [place]) (01/18/2025 2:19 AM CDT) Only the most recent of2 resultswithin the time period is included. Urine URINE SPECIMEN OBTAINED BY CLEAN CATCH PROCEDURE / Unknown Collection / Unknown 01/18/2025 2:19 AM CDT 01/18/2025 2:27 AM CDT Derrick Maldonado MD URINE ORDERABLES Final Resul t Performing Organization Address City/[facility]/ZIP Co de Phone Number [facility] [employer] [facility] CLIA # [id number] [facility] [address] [place] [address] * (ABNORMAL) URINALYSIS WITH REFLEX MICROSCOPIC (01/18/2025 2:19 AM CDT) Only the most recent of2 resultswithin the time period is included. COLOR UA Yellow Pale to Dark Yellow 01/18/2025 2:45 AM T [facility] CLARITY UA Cloudy(A) Clear 01/18/2025 2:45 AM T [facility] SPECIFIC GRAVITY UA 1.035 1.003 - 1.035 01/18/2025 2:45 AM T [facility] PH UA 6.0 5.0 - 8.0 01/18/2025 2:45 AM [facility] LEUKOCYTE ESTERASE UA 3+(A) Negative 01/18/2025 2:45 AM T [facility] NITRITE UA Negative Negative 01/18/2025 2:45 AM T [facility] PROTEIN UA Negative Negative 01/18/2025 2:45 AM [facility] GLUCOSE UA 4+(A) Negative 01/18/2025 2:45 AM [facility] KETONES UA Negative Negative 01/18/2025 2:45 AM [facility] UROBILINOGEN UA <2.0 <2.0 mg/dL 2:45 AM [facility] BILIRUBIN UA Negative Negative 01/18/2025 2:45 AM [facility] BLOOD UA 1+(A) Negative 01/18/2025 2:45 AM T [facility] WBC UA 11-25(A) 0 - 2 /hpf 01/18/2025 2:45 AM [facility] RBC UA >100(A) 0 - 2 /hpf 01/18/2025 2:45 AM [facility] BACTERIA UA 2+(A) Negative /hpf 01/18/2025 2:45 AM CDT [facility] EPITHELIAL CELLS, URINE 0-5 0 - 5 /hpf 01/18/2025 2:45 AM CDT [facility] YEAST, BUDDING Present(A) Absent 01/18/2025 2:45 AM CDT [facility] Urine URINE SPECIMEN OBTAINED BY CLEAN CATCH PROCEDURE / Unknown Collection / Unknown 01/18/2025 2:19 AM CDT 01/18/2025 2:27 AM CDT us Derrick Maldonado MD URINE ORDERABLES Final Resul t [facility] CLIA # [id number] [address] [place] [id number] * RESPIRATORY PATHOGEN PCR PANEL (01/17/2025 10:40 PM CDT) Only the most recent of4 resultswithin the time period is included. Pathologist [facility] Respiratory Pathogen PCR Panel NOT DETECTED No respiratory pathogen nucleic acids detected. 01/17/2025 11:46 PM CDT [facility] COVID-19 PCR NOT DETECTED Not Detected 01/17/2025 11:46 PM CDT [facility] Upper Respiratory ENTIRE NASOPHARYNX / Unknown Collection / Unknown 01/17/2025 10:40 PM CDT 01/17/2025 10:44 PM CDT Narrative [facility] - 01/17/2025 11:46 PM CDT [employer] Respiratory Panel [...] pertussis Bordetella parapertussis Chlamydophila pneumoniae Mycoplasma pneumoniae Dave Cline MD MICROBIOLOGY - GENERAL ORDERABLES Final Result Performing Organization Address City/[facility]/ZIP Co de Phone Number [facility] CLIA # [id number] [address] [address] [place], [place] [id number] * (ABNORMAL) PTT (01/17/2025 10:28 PM CDT) Only the most recent of2 resultswithin the time period is included. PTT 22.0(L) 24.8 - 37.2 seconds 01/17/2025 10:46 PM CDT [facility] Blood Venipuncture / Unknown 01/17/2025 10:28 PM CDT 01/17/2025 10:33 PM CDT Narrative [facility] [employer] [facility] - 01/17/2025 10:46 PM CDT Therapeutic Range: Hi-level PE/DVT heparin protocol 80.1 - 95.0 sec Lo-level PE/DVT heparin protocol 70.1 - 85.0 sec Cardiac Heparin Protocol 70.1 - 100.0 sec Dave Cline MD HEMATOLOGY ORDERABLES Final Result Performing Organization Address [facility] Co de Phone Number [facility] CLIA # [id number] [address] [address] * PROTIME-INR (01/17/2025 10:28 PM CDT) Only the most recent of20 resultswithin the time period is included. PROTIME 14.8 12.7 - 14.9 Seconds 01/17/2025 10:46 PM CDT [facility] INR 1.1 0.8 - 1.2 01/17/2025 10:46 PM CDT [facility] Blood Venipuncture / Unknown 01/17/2025 10:28 PM CDT 01/17/2025 10:33 PM CDT Narrative [facility] - 01/17/2025 10:46 PM CDT Expected Values for INR: DVT/PE Goal INR 2.5; range 2.0 - 3.0 Valve Replacement Tissue Goal INR 2.5; range 2.0 - 3.0 Valve Replacement Mechanical Goal INR 3.0; range 2.5 - 3.5 POST-NH Goal INR 2.5; range 2.0 - 3.0 or Goal INR 3.0; range 2.5 - 3.5 Atrial Fibrillation Goal INR 2.5; range 2.0 - 3.0 Ischemic Stroke Goal INR 2.5; range 2.0 - 3.0 Dave Cline MD HEMATOLOGY ORDERABLES Final Result [facility] CLIA # [id number] [address] [place] [address] * D-DIMER (01/17/2025 10:28 PM CDT) Only the most recent of5 resultswithin the time period is included. D-DIMER QUANT <0.27 0.00 - 0.50 ug/mL FEU 01/17/2025 10:46 PM CDT [facility] Blood Venipuncture / Unknown 01/17/2025 10:28 PM CDT 01/17/2025 10:33 PM CDT Narrative [facility] - 01/17/2025 10:46 PM CDT D-Dimer assay cutoff value for [...] FEU 71-80 years: 0.71-0.80 ug/mL FEU us Dave Cline MD HEMATOLOGY ORDERABLES Final Result [facility]EL[facility] # [id number] [address] [address] [place] [address] * (ABNORMAL) COMPREHENSIVE METABOLIC PANEL (01/17/2025 10:28 PM CDT) Only the most recent of14 resultswithin the time period is included. SODIUM 136 136 - 145 mmol/L 01/17/2025 11:45 PM CDT [facility] POTASSIUM 4.1 3.5 - 5.1 mmol/L 01/17/2025 11:45 PM CDT [facility] CHLORIDE 98 98 - 107 mmol/L 01/17/2025 11:45 PM CDT [facility] CO2 24 22 - 29 mmol/L 01/17/2025 11:45 PM CDT [facility] CALCIUM 9.8 8.6 - 10.0 mg/dL 01/17/2025 11:45 PM CDT [facility] BUN 33(H) 6 - 20 mg/dL 01/17/2025 11:45 PM CDT [facility] CREATININE 0.72 0.51 - 0.95 mg/dL 01/17/2025 11:45 PM CDT [facility] GLUCOSE 476(HH) 74 - 99 mg/dL 01/17/2025 11:45 PM CDT [facility] TOTAL PROTEIN 6.9 6.4 - 8.3 g/dL 01/17/2025 11:45 PM CDT [facility] ALBUMIN 3.7 3.5 - 5.2 g/dL 01/17/2025 11:45 PM CDT [facility] BILIRUBIN TOTAL 0.2 0.0 - 1.0 mg/dL 01/17/2025 11:45 PM CDT [facility] ALKALINE PHOSPHATASE 151(H) 35 - 104 U/L 01/17/2025 11:45 PM CDT [facility] AST 31 10 - 35 U/L 01/17/2025 11:45 PM CDT [facility] ALT 33 <=35 U/L 01/17/2025 11:45 PM CDT [facility] GFR >60 >=60 mL/min/1. 73 sq meter 01/17/2025 11:45 PM CDT [facility] Comment:eGFR calculated with 2020 CKD-EPI equation. Vegetarian diet, extremely high or low muscle mass, and may affect results. Cystatin C with Glomerular Filtration Rate is a suitable alternative for these patients. ANION GAP 14 9 - 20 mmol/L 01/17/2025 11:45 PM T [facility] Blood Venipuncture / Unknown 01/17/2025 10:28 PM CDT 01/17/2025 10:34 PM CDT us Dedra Navarro AIR SHOVEL OPERATOR CHEMISTRY ORDERABLES Final Re sult [facility] CLIA # [id number] [address] [place] [address] * (ABNORMAL) BLOOD GAS ARTERIAL (01/17/2025 10:10 PM CDT) Only the most recent of2 resultswithin the time period is included. PH BLOOD POC 7.42 7.35 - 7.45 01/17/2025 10:10 PM CDT [facility] PCO2 POC 47(H) 35 - 45 mm Hg 01/17/2025 10:10 PM CDT [facility] PO2 POC 32(LL) 80 - 105 mm Hg 01/17/2025 10:10 PM CDT [facility] HCO3 (CALC) POC 31(H) 22 - 26 mmol/L 01/17/2025 10:10 PM CDT [facility] HEMOGLOBIN POC 12.4 12.0 - 18.0 g/dL 01/17/2025 10:10 PM [facility] BASE EXCESS POC 6(H) -2 - 3 mmol/L 01/17/2025 10:10 PM [facility] O2 SATURATION POC 49(L) 95 - 98 % 01/17/2025 10:10 PM [facility] SODIUM POC 132(L) 138 - 146 mmol/L 01/17/2025 10:10 PM [facility] POTASSIUM POC 3.6 3.5 - 4.9 mmol/L 01/17/2025 10:10 PM [facility] HEMATOCRIT POC 37(L) 38 - 51 % 01/17/2025 10:10 PM [facility] PH TEMP CORRECT 7.42 7.35 - 7.45 01/17/2025 10:10 PM [facility] PCO2 TEMP CORRECT 47(H) 35 - 45 mm Hg 01/17/2025 10:10 PM [facility] PO2 TEMP CORRECT 32(LL) 80 - 105 mm Hg 01/17/2025 10:10 PM [facility] SPECIMEN SOURCE, GASES POC Arterial 01/17/2025 10:10 PM [facility] CRITICALTO POC DOCTOR RADHAIAN 01/17/2025 10:10 PM [facility] NAME POC [id number] 01/17/2025 10:10 PM [facility] RESULTS POC Y 01/17/2025 10:10 PM [facility] TIME POC 2212 01/17/2025 10:10 PM [facility] CALCIUM IONIZED POC 5.0 4.8 - 5.2 mg/dL 01/17/2025 10:10 PM [facility] TCO2 (CALC) POC 32(H) 23 - 27 mmol/L 01/17/2025 10:10 PM [facility] PUNC SITE POC ART PUNCT 01/17/2025 10:10 PM [facility] PATIENT'S TEMPERATURE POC 37.0 degrees 01/17/2025 10:10 PM CDT [facility] Blood, arterial 01/17/2025 1 0:10 PM CDT 01/17/2025 10:27 PM CDT us Dedra Tawanda Woodehr AIR SHOVEL OPERATOR ABG ORDERABLES Final Result [facility] CLIA # [id number] [address] [address] [place] [address] * Critical Care (01/17/2025 9:32 PM CDT) Narrative Dave Cline MD - 01/17/2025 9:32 PM CDT Dave Cline MD 01/18/2025 6:36 PM Critical Care Performed by: Dave Cline MD Authorized by: Dave Cline MD Critical care provider statement: Critical care [...] plan with patient or surrogate, ordering and performing treatments and interventions, ordering and review of laboratory studies, ordering and review of radiographic studies, discussions with consultants, pulse oximetry, evaluation of patient's response to treatment, re-evaluation of patient's condition, obtaining history from patient or surrogate, review of old charts and examination of patient I assumed direction of critical care for this patient from another provider in my specialty: no Care discussed with: admitting provider us Dave Cline MD PROCEDURE/MINOR SURGIC AL ORDERABLES Final Result * TELEMETRY REPORT (01/10/2025 2:48 AM CDT) Only the most recent of5 resultswithin the time period is included. us Provider Scanning ECG ORDERABLES Final Result * US VENOUS DOPPLER LEG BILATERAL (01/09/2025 8:44 AM CDT) Anatomical Region Laterality Modality Lower Extremity Ultrasound 01/09/2025 7:30 AM CDT Narrative 01/09/2025 2:22 PM CDT [facility] Noninvasive Vascular Laboratory [address] [place] [address] Noninvasive Vascular Lab Venous Exam Complete Lower Extremity Duplex Patient: Le Diaz Study ID: US VENOUS DOPPLE Gender: F : 1965 Age: 59 Room: [facility] Height: Weight: BSA: Pt status: Inpatient Study Date: 01/09/2025 Study Time: 07:30:16 AM BSA: Ordering: Kapil Deluna Interpreting:Lm Zimmerman Geophysics Scientist: CORKY Indications: Extremity edema. Lower extremity pain. [...] Patent; Normal phasicity; spontaneous; compressible; normal augmentation [facility] Vascular Lab is accredited with the Intersocietal Commission for the Accreditation of Vascular Laboratories (ICAVL) Prepared and Electronically Authenticated Lm Zimmerman Confirmed 01/09/2025 14:22 Procedure Note Lm Zimmerman MD - 01/09/2025 [facility] Cardiovascular Services Noninvasive Vascular Laboratory [address] [place] [address] Noninvasive Vascular Lab Venous Exam Complete Lower Extremity Duplex Patient: Le Diaz Study ID: US VENOUS DOPPLE Gender: F : 1965 Age: 59 Room: [facility] Height: Weight: BSA: Pt status: Inpatient Study Date: 01/09/2025 Study Time: 07:30:16 AM BSA: Ordering: Kapil Deluna Interpreting:Lm Zimmerman Geophysics Scientist: CORKY Indications: Extremity edema. Lower extremity pain. [...] saphenous Patent; Normal phasicity; spontaneous;compressible; normal augmentation [facility] Vascular Lab is accredited with theIntersocietal Commission for the Accreditation of Vascular Laboratories (ICAVL) Prepared and Electronically Authenticated Lm Zimmerman Confirmed 01/09/2025 14:22 us Kapil Deluna DO US ORDERABLES Final R esult * (ABNORMAL) GLUCOSE LEVEL (01/08/2025 11:56 PM CDT) Only the most recent of3 resultswithin the time period is included. GLUCOSE 414(HH) 74 - 99 mg/dL 01/09/2025 12:37 AM CDT [facility] Blood Venipuncture / Unknown 01/08/2025 11:56 PM CDT 01/09/2025 12:04 AM CDT Ronak Cortes MD CHEMISTRY ORDERABLE S Final Result [facility] CLIA # [id number] [facility] [address] [place] [address] * CTA CHEST W AND/OR WO CONTRAST (01/08/2025 1:27 AM CDT) Only the most recent of4 [...] defect with LVEF 35-39%. Lm Zimmerman MD, [facility], [facility] Narrative INTERFACE SYSTEM - 01/06/2025 9:42 [...] on D-SPECT Cardio and data analyzed using Drik. The resting heart rate was 96 beats per minute and peak heart rate during stress was 119 beats per minute. Blood pressure was 125/74 mmHg at rest and 131/79 mm Hg at peak stress. Blood pressure response was appropriate during the stress procedure. The resting electrocardiogram demonstrated atrial rhythm with PVC, possible old inferior NH, mild nonspecific ST-segment changes. During stress, no [...] on D-SPECT Cardio and data analyzed using Drik. The resting heart rate was 96 beats per minute and peak heart rate during stress was 119 beats per minute. Blood pressure was 125/74 mmHg at rest and 131/79 mm Hg at peak stress. Blood pressure response was appropriate during the stress procedure. The resting electrocardiogram demonstrated atrial rhythm with PVC, possible old inferior NH, mild nonspecific ST-segment changes. During stress, no [...] with LVEF 35-39%. Lm Zimmerman MD, FAC, [facility] us Shailesh Elaine MD NM ORDERABLES Final [...] defect with LVEF 35-39%. Lm Zimmerman MD, [facility], [facility] INTERFACE SYSTEM - 01/06/2025 9:42 AM [...] axis views. All imaging was performed on DReasult and data analyzed using Drik. The resting heart rate was 96 beats per minute and peak heart rate during stress was 119 beats per minute. Blood pressure was 125/74 mmHg at rest and 131/79 mm Hg at peak stress. Blood pressure response was appropriate during the stress procedure. The resting electrocardiogram demonstrated atrial rhythm with PVC, possible old inferior NH, mild nonspecific ST-segment changes. During stress, no [...] axis views. All imaging was performed on DReasult and data analyzed using Drik. The resting heart rate was 96 beats per minute and peak heart rate during stress was 119 beats per minute. Blood pressure was 125/74 mmHg at rest and 131/79 mm Hg at peak stress. Blood pressure response was appropriate during the stress procedure. The resting electrocardiogram demonstrated atrial rhythm with PVC, possible old inferior NH, mild nonspecific ST-segment changes. During stress, no [...] LVEF 35-39%. Lm Zimmerman MD, FACC, FASNC Shailesh Elaine MD NM ORDERABLES Final Result Performing Organization Address City/[facility]/ZIP Co de Phone Number INTERFACE SYSTEM Refer to clinic/hospital department * (ABNORMAL) LACTIC ACID (01/06/2025 1:54 AM CDT) Only the most recent of6 resultswithin the time period is included. LACTIC ACID 2.2(H) <=2.0 mmol/L 01/06/2025 2:24 AM CDT [facility] Blood Venipuncture / Unknown 01/06/2025 1:54 AM CDT 01/06/2025 2:00 AM CDT Shailesh Elaine MD CHEMISTRY ORDERABLES Final Res ult Performing Organization Address City/[facility]/ZIP Co de Phone Number [facility] CLIA # [id number] [address] [facility] [place] [address] * (ABNORMAL) CBC WITHOUT DIFFERENTIAL (01/06/2025 1:54 AM CDT) Only the most recent of2 resultswithin the time period is included. Pathologist [facility] WBC 7.0 4.8 - 10.8 K/uL 01/06/2025 2:07 AM [facility] NRBCS 2(H) <1 % 01/06/2025 2:07 AM [facility] RBC 3.67(L) 4.20 - 5.40 M/uL 01/06/2025 2:07 AM [facility] HEMOGLOBIN 10.7(L) 12.0 - 16.0 g/dL 01/06/2025 2:07 AM T [facility] HEMATOCRIT 34.8(L) 36.0 - 46.0 % 01/06/2025 2:07 AM [facility] MCV 94.8 84.0 - 103.0 fL 01/06/2025 2:07 AM [facility] MCH 29.2 27.0 - 34.0 pg 01/06/2025 2:07 AM [facility] MCHC 30.7 30.0 - 35.0 g/dL 01/06/2025 2:07 AM [facility] PLATELETS 172 140 - 440 K/uL 01/06/2025 2:07 AM [facility] MPV 11.0 8.9 - 12.8 fL 01/06/2025 2:07 AM [facility] RDW 18.8(H) 11.0 - 14.5 % 01/06/2025 2:07 AM [facility] RDW-STDEV 66.2(H) 37.0 - 54.0 fL 01/06/2025 2:07 AM [facility] Blood Venipuncture / Unknown 01/06/2025 1:54 AM CDT 01/06/2025 1:58 AM CDT us Shailesh Elaine MD HEMATOLOGY ORDERABLES Final Re sult [facility] CLIA # [id number] [address] [address] [place] [address] * MAGNESIUM LEVEL (01/05/2025 4:36 AM CDT) Only the most recent of5 resultswithin the time period is included. MAGNESIUM 1.9 1.6 - 2.6 mg/dL 01/05/2025 5:20 AM CDT [facility] [employer] [facility] Blood Venipuncture / Unknown 01/05/2025 4:36 AM CDT 01/05/2025 4:42 AM CDT us Nani Borges MD CHEMISTRY ORDERABLES Fin al Result [facility] CLIA # [id number] [address] [address] * INSERT PERIPHERAL IV (01/04/2025 8:35 AM CDT) Only the most recent of2 resultswithin the time period is included. Narrative [facility] - 01/04/2025 8:35 AM CDT Tasha Glynn RN 01/04/2025 9:14 AM VASCULAR ACCESS NOTE Midline PATIENT NAME: Le Diaz DATE OF : 1965 CSN: [id number] DATE: 01/04/2025 Room: 05/23 Admit Date: 01/04/2025 [...] weekly and as needed using sterile technique Heike Camarillo MD IV THERAPY ORDERABLES Final Resu lt [facility] CLIA [id number] [address] [facility] [address] [place] [address], [place] [phone] * (ABNORMAL) POC LACTIC ACID (01/04/2025 7:43 AM CDT) Pathologist [facility] LACTIC ACID POC 5.3(HH) <=2.0 mmol/L 01/04/2025 7:43 AM CDT [facility] SPECIMEN SOURCE, GASES POC Venous 01/04/2025 7:43 AM CDT [facility] [employer] [facility] CRITICALTO POC 01/04/2025 7:43 AM CDT [facility] NAME POC [id number] C 01/04/2025 7:43 AM CDT [facility] RESULTS POC Y 01/04/2025 7:43 AM CDT [facility] TIME POC 744 01/04/2025 7:43 AM CDT [facility] PUNC SITE POC No Charge 01/04/2025 7:43 AM CDT [facility] Blood 01/04/2025 7:43 AM CDT 01/04/2025 7:45 AM CDT Narrative [facility] - 01/04/2025 7:43 AM CDT References ranges displayed are for Arterial samples. Heike Camarillo MD POINT OF CARE TESTING Final Resu lt [facility] CLIA # [id number] [address] [facility] [place] [address] * (ABNORMAL) BLOOD GAS VENOUS (01/04/2025 7:43 AM CDT) Only the most recent of5 resultswithin the time period is included. Pathologist [facility] PH BLOOD POC 7.35 7.32 - 7.43 01/04/2025 7:43 AM [facility] PCO2 POC 37(L) 38 - 50 mm Hg 01/04/2025 7:43 AM [facility] PO2 POC 56(H) 25 - 40 mm Hg 01/04/2025 7:43 AM [facility] HCO3 (CALC) POC 20(L) 22 - 29 mmol/L 01/04/2025 7:43 AM [facility] HEMOGLOBIN POC 11.7(L) 12.0 - 18.0 g/dL 01/04/2025 7:43 AM [facility] BASE EXCESS POC -5(L) -2 - 3 mmol/L 01/04/2025 7:43 AM [facility] O2 SATURATION POC 88(H) 40 - 70 % 01/04/2025 7:43 AM [facility] SODIUM POC 134(L) 135 - 145 mmol/L 01/04/2025 7:43 AM [facility] POTASSIUM POC 4.8 3.5 - 4.9 mmol/L 01/04/2025 7:43 AM [facility] HEMATOCRIT POC 35(L) 38 - 51 % 01/04/2025 7:43 AM [facility] PH TEMP CORRECT 7.35 7.32 - 7.43 01/05/20 7:43 AM [facility] PCO2 TEMP CORRECT 37(L) 38 - 50 mm Hg 01/04/2025 7:43 AM [facility] PO2 TEMP CORRECT 56(H) 25 - 40 mm Hg 01/04/2025 7:43 AM [facility] SPECIMEN SOURCE, GASES POC Venous 01/04/2025 7:43 AM [facility] CRITICALTO POC DR.PLATE 01/04/2025 7:43 AM [facility] NAME POC [id number] C 01/04/2025 7:43 AM [facility] RESULTS POC Y 01/04/2025 7:43 AM [facility] TIME POC 744 01/04/2025 7:43 AM CDT [facility] CALCIUM IONIZED POC 5.1 4.8 - 5.2 mg/dL 01/04/2025 7:43 AM CDT [facility] TCO2 (CALC) POC 22 22 - 26 mmol/L 01/04/2025 7:43 AM CDT [facility] PUNC SITE POC No Charge 01/04/2025 7:43 AM CDT [facility] PATIENT'S TEMPERATURE POC 37.0 degrees 01/04/2025 7:43 AM CDT [facility] Blood, venous 01/04/2025 7:4 3 AM CDT 01/04/2025 7:45 AM CDT Heike Camarillo MD ABG ORDERABLES Final Result Performing Organization Address City/State/[facility] Co de Phone Number [facility] CLIA # [id number] [facility] [address] [place] [address] * XR CHEST PA AND LATERAL 2 [...] identified. The osseous structures appear grossly intact. [employer] DO DIAGNOSTIC IMAGING ORDERABLES F inal Result * EXTRA TUBE (BLUE) (01/03/2025 7:43 PM CDT) Blood Venipuncture / Unknown 01/03/2025 7:43 PM CDT 01/03/2025 7:53 PM CDT [employer] DO HEMATOLOGY ORDERABLES Final Res ult Performing Organization Address [facility] Co de Phone Number [facility] [employer] [facility] CLIA # [id number] [address] [place] [address] * BLOOD CULTURE (01/03/2025 7:43 PM CDT) Only the most recent of4 resultswithin the time period is included. BLOOD CULTURE No growth 01/08/2025 9:27 PM CDT [facility] [employer] [facility] Blood (Peripheral) Venipuncture / Unknown 01/03/2025 7:43 PM CDT 01/03/2025 7:50 PM CDT [employer] DO MICROBIOLOGY - GENERAL ORDERABL ES Final Result Performing Organization Address [facility] Co de Phone Number [facility] CLIA # [id number] [address] [place] [address] * US DOPPLER VENOUS ARM LEFT (12/28/2024 11:52 AM CDT) Anatomical Region Laterality Modality Upper Extremity Ultrasound 12/28/2024 11:3 9 AM CDT Narrative 12/28/2024 3:22 PM CDT [facility] Cardiovascular Services Noninvasive Vascular [place] [address] Noninvasive Vascular Lab Venous Exam Limited Upper Extremity Duplex Patient: Le Diaz Study ID: US DOPPLER GODWIN Gender: F : 1965 Age: 59 Room: Height: Weight: BSA: Pt status: Emergency Study Date: 12/28/2024 Study Time: 11:39:58 AM BSA: Ordering: Luzma Romero Interpreting:Prince Luana Geophysics Scientist: ROCHELLE Indications: Extremity Edema. Summary Impression: 1. [...] 1200 - SVT cephalic and basilic vein [facility] Vascular Lab is accredited with the Intersocietal Commission for the Accreditation of Vascular Laboratories (ICAVL) Prepared and Electronically Authenticated Prince Luana Confirmed 12/28/2024 15:22 Procedure Note Prince Craft MD - 12/28/2024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
--- OUTSIDE RECORDS SUMMARY | 2025-02-26 06:23 | XMS_ITS | Encounter Summary ---
Author Organization [facility] Address [address] [place] [address] Care Team Providers Care Pickling Solution Maker Name Role Phone Marcia Claros MD Primary Care Provider [phone]- [phone] Encounter Details Date Type Department Care Team ([facility] st Contact Info) Description 06/16/2024 Telephone [facility] Op[facility] [address] [place] [phone] Eduardo Craven MD [address] [place] [phone] Social History Tobacco Use Types Packs/Day Years Used Date Smoking Tobacco: Former Cigarettes 1 Q uit: 07/21/2022 Smokeless Tobacco: Never Alcohol [...] often do you attend chur ch or mosque services? 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 Gender Identity Not on file Sexual Orientation [...] (Latest Contact Info) Description 03/22/2025 10:30 AM RIVER DRIVER Hospital Encounter [facility] [address] [place] [phone] Kumar Ochoa MD [address] [employer] [address] [place] [address] Combined forms of age-related cataract of right eye 08/24/2025 2:20 PM CDT Office Visit [facility] [address] [address] Marcia Claros MD [address] [address] Scheduled Procedures Name Priority Associated Diagnoses Date/Ti me CATARACT EXTRACTION IOL INSERTION FEMTO LASER ASSISTED LEVEL 1 Combined forms of age-related cataract of right eye Right retinal detachment 03/22/2025 7:35 AM RIVER DRIVER PARS PLANA VITRECTOMY WITH LASER Combined forms of age-related cataract of right eye Right retinal detachment 03/22/2025 7:35 AM RIVER DRIVER EYE PLACEMENT OF SILICONE OIL Combined forms of age-related cataract of right eye Right retinal detachment 03/22/2025 7:35 AM RIVER DRIVER documented as of this encounter Goals Goal [...] 01/07/2025 01/07/2025 01/08/2025 5 :44 AM CDT R/O Respiratory 01/17/2025 01/17/2025 01/17/2025 1 1:46 PM CDT documented as of this encounter Care Teams Pickling Solution Maker Relationship Specialty Start Date End Date Marcia Claros MD [address] [place] [phone] PCP - General Family Practice 02/23/25 documented as of this encounter
--- OUTSIDE RECORDS SUMMARY | 2025-02-26 06:23 | XMS_ITS | Patient Health Record ---
Author Organization [facility] Address [address] [place] [address] Care Team Providers Care Plant Protection Superintendent Name Role Phone Delta Wade Primary Care Provider UnavailJose Cruz Tomas Unavailable [phone] Masoud Bello Unavailable [phone] Acacai Gaines Unavailable [phone] Chantelle Yee Unavailable [phone] Hannah Rai Unavailable [phone] Allergies Allergen (clinical drug ingredient) Drug/Non Drug Allergy documented on EMR Reaction Allergy Type Onset Date Status Compazine Unknown Drug Allergy Active ketorolac Ketorolac Unknown Drug Allergy Active Results Component Value Reference Range Notes Partial Thromboplastin Time 17815 Reviewed date:05/16/2024 05:08:19 PM Interpretation: Performing Lab: Notes/Report: trop 2nd@ 205 3510 @ 0021 3510 @ 0021 PTT 27.1 22.6-31.8 SEC Therapeutic Range: 60-100. Critical Value Starting at > 100. Prothrombin Time 31583 Reviewed date:05/16/2024 05:08:19 PM Interpretation: Performing Lab: Notes/Report: trop 2nd@ 205 3510 @ 0021 3510 @ 0021 ProTime 10.8 9.1-11.9 SEC Normal Range: 9.1-11.9 INR 1.02 .90-1.20 Therapeutic Range: 2.0-3.0 Therapaeutic Range for heart valve replacement: 2.5-3.50 zzzHeart Cath Lt poss PTCA Reviewed date:05/16/2024 05:08:19 PM Interpretation: Performing Lab: Notes/Report: [id number]=[email or web address] zzzHeart Cath Lt poss PTCA Reviewed date:05/16/2024 05:08:19 PM Interpretation: Performing Lab: Notes/Report: See Below For Report This report was dictated outside of the RadNet system. trop 2nd@ 205 3510 @ 0021 [...] First Name ER Referring Provider Last Name [facility] Referring Provider Speciality Emergency Medicine Referred Organization [facility] Referred Provider Jose Cruz Forde Referred Address [address] [place] [address] [address],[place], [place],[address], Referred Provider Specialty Pulmonary Di seases General [...] Date Status Comme nts Influenza (whole), CPT 94377 Inactive Unknown 01/04/2024 Administered Social History Tobacco [...] W/U Status Risk Notes Problem Tobacco user (147613565) Nicotine dependence, cigarettes, in remission (F17.211) Active confirmed Problem Ischemic cardiomyopathy (461705015) Ischemic cardiomyopathy (I25.5) Active confirmed Problem Chronic obstructive pulmonary disease (58786935) Chronic obstructive pulmonary disease, unspecified (J44.9) Active confirmed Problem Gastro-esophageal reflux disease without esophagitis (276697113) Gastro-esophageal reflux disease without esophagitis (K21.9) Active confirmed Problem C-reactive protein abnormal (425991837) Elevated C-reactive protein (CRP) (R79.82) Active confirmed Problem Solitary pulmonary nodule (605665295) Solitary pulmonary nodule (R91.1) Active confirmed Problem Long-term current use of anticoagulant (569634487) long term care social worker (current) use of anticoagulants (Z79.01) Active confirmed Problem Atherosclerotic heart disease of wr[place] coronary artery without angina pectoris (342120198586798) Arteriosclerosis of coronary artery (I25.10) Active confirmed Problem History of placement of stent for coronary artery disease (situation) (735276307) H/O heart artery stent (Z95.5) Active confirmed Problem Long-term current use of anticoagulant (294784090) Anticoagulated (Z79.01) Active confirmed Problem Angina (421511913) Atheroscleros is of wr[place] coronary artery of [place] heart with angina pectoris (I25.119) Active confirmed Problem Acute non-ST segment elevation myocardial infarction (987375286) Non-ST elevated myocardial infarction (I21.4) Active confirmed Problem History of pulmonary embolus (625986004) Hx of pulmonary embolus (Z86.711) Active confirmed Problem Coronary stent patent (831009414) Coronary stent patent (Z95.5) Active confirmed Problem Chronic respiratory failure (94738544) Chronic hypoxic respiratory failure (J96.11) Active confirmed [...] N/A Encounters Encounter Location Date Provider Diagnosis [facility] [address] [place] [address] [place] [address] 06/20/2024 Jose Cruz Forde Solitary pulmonary nodule R91.1 ; Chronic hypoxic respiratory failure J96.11 ; Nicotine dependence, cigarettes, in remission F17.211 and Shortness of breath R06.02 [facility] [address] [place] [address] [place] [address] 06/30/2024 Jose Cruz Forde [facility] [place] [address] [place] [address] 06/06/2024 Masoud Bello Other fracture of unspecified lumbar vertebra, initial encounter for closed fracture S32.008A Assessments Encounter Date Diagnosis (ICD Code) Assessment [...] remission (ICD-10 - F17.211) Patient smoked a donj-wdm-del for 45 years. She has been abstinent [...] Test Test Name Order Date Lumbosacral Spine AP/Lat-28184 5 PFT with FRC: (NO TGV) 06/20/2024 CT Chest ION Endoluminal-07404 5 Insurance Providers Payer Name Payer Address Payer Phone Subscriber Number Group Number Insured Name Patient Relationship to Insured Coverage Start Date Coverage End Date [place] Medicaid [address] [place] [address] [phone] [id number] GIANFRANCO DIAZ Self - patient is the [...]
--- OUTSIDE RECORDS SUMMARY | 2025-02-26 06:23 | XMS_ITS | Continuity of Care Document ---
Author Organization [facility] [place], [place], [facility] ([facility]) Address [address] [place] [address] Assessment Encounter Date Assessment Date Assessment LastModified by Organization Details LastModified Time 01/11/2025 01/11/2025 Patient is here today for a follow-up from the hospital. She was recently seen due to hypoxia. She reports she was frequently passing out. She was told by the provider in [facility] to stop her pain medication. She is requesting a detox of sorts to get off of her pain medication because she doesn't feel like herself while taking them. She was given #90 hydrocodone on 12/20 and she reports she no longer has these because they were taken and discarded of while she was in [facility]. She refuses a referral to pain [...] Appointments None recorded. Lab None recorded. Referral None recorded. Procedures None recorded. Surgeries None recorded. Imaging None recorded. Medication Orders insulin lispro (U-100) 100 unit/mL subcutaneou s pen 2024 025 [facility]/Pharmacy #[id number], [address], [facility] [address], [place], [address], 16:35:18 Lantus Solostar U-100 Insulin 100 unit/mL (3 mL) subcutaneou s pen 2024 025 [facility]/Pharmacy #[id number], [address], [place], [address], 16:35:18 Patient TargetsNo targets recorded. Patient Instructions Encounter Date Encounter Id Patient Instructions Last Modified By Organization Details Last Modified Time 01/11/2025 [id number] hospital discharge follow up* Not available 01/11/2025 16:35:16 Call or return for questions or concerns. Not available 01/11/2025 16:33:46 Reason for Referral None Reported. Results Created Date Observation Date Name Description Value Unit Range Abnormal Flag Note LastModifiedBy Organization Detail LastModifiedTime 12/22/1912/21/2024 PT/IN R Protime 12.7 Not Available [facility] ([facility]) [address] [place], [address], 12/21/2024 09:10:20 12/22/1912/21/2024 PT/IN R INR 1.1 Not Available [facility] ([facility]) [address] [place], [address], 12/21/2024 09:10:20 01/12/2001/11/2025 hospi anamaria disch arge follo w up* Records Reviewed Yes Not Available [facility] ( [facility]) [address] [place], [address], 01/11/2025 16:34:22 01/12/2001/11/2025 hospi anamaria disch arge follo w up* Medications Reconciles Yes Not Available [facility] ([facility]) [address] [facility], [place], [address], 01/11/2025 16:34:22 01/30/20 25 01/29/2025 XR, chest , 2 view No observ ation record ed. [email or web address] [facility] [address] [facility], [place], [address], 01/29/2025 20:36:49 Result Notes None recorded. Problems Name Problem SNOMED Code Status Onset Date Resolution Date Notes Provider Name and Address Organization Details Recorded Time Pulmonary embolism 77022246 Active 2023 OJSE moy [facility] 5 14:52:04 Coronary arterioscle rosis 28926452 Active 2023 JOSE moy [facility] 5 14:52:04 Essential hypertensio n 87661216 Active 2023 JOSE moy [facility] 5 14:52:04 Type 2 diabetes mellitus 15570685 Active 2023 JOSE moy [facility] 5 14:52:04 Mixed anxiety and depressive disorder 837426782 Active 2023 JOSE moy [facility] 5 14:52:04 Chronic osteoarthri tis 19069212 Active 2023 JOSE moy [facility] 5 14:52:04 Chronic obstructive pulmonary disease 57802562 Active 2023 JOSE moy [facility] 5 14:52:04 Pain of left shoulder joint 8663222017631 9109 Active 2023 JOSE moy [facility] 5 14:52:04 Syncope 448361900 Active 2023 JOSE BRIGHT null, [facility] 5 14:52:04 Edema of lower extremity 422932914 Active 2023 JOSE BRIGHT null, [facility] 5 14:52:04 Urinary incontinenc e 180594663 Active 2023 JOSE BRIGHT null, [facility] 5 14:52:04 Recurrent falls 534768540 Active 2023 JOSE BRIGHT null, [facility] 5 14:52:04 Gastroesoph ageal reflux disease 449307590 Active 2023 JOSE BRIGHT null, [facility] 5 14:52:04 Major depressive disorder 868225336 Active 2023 [facility] 14:52:04 Chronic systolic heart failure 393128900 Active 2024 [facility] 14:52:04 Generalized anxiety disorder 96762238 Active 2024 JOSE BRIGHT null, [facility] 5 14:52:04 Chronic diastolic heart failure 974645656 Active 2024 JOSE BRIGHT null, [facility] 5 14:52:04 Closed fracture lumbar vertebra, wedge 098276745 Active 2024 YANNICK PERSON null, [facility] 5 10:07:16 Mass of right lower lobe of lung 6998925420958 09 Active [address] [facility] 5 10:07:03 Compression fracture of lumbar spine 414215738 Active 2024 [facility] PERSON [facility] 5 14:30:37 Supraventri cular tachycardia 1984358 Active 2024 [facility] PERSON [facility] 5 14:30:29 Abdominal pain 06154590 Active 2024 [facility] PERSON [facility] 5 17:07:23 Chronic constipatio n 362321460 Active 2024 [facility] PERSON [facility] 5 17:07:18 Problem Notes None recorded. Procedures Surgical History Date Name Laterality Status Provider Name and Address Organization Details Recorded Time Splenectomy completed Sonal Hollis [facility] 08/14/2023 11:39:32 Imaging Results None recorded. Procedure Notes None recorded. Medical Equipment None Reported. Allergies Allergen ID Allergen Name Allergen Category Reaction Reaction Severity Criticality Documentation Date Start Date Code Code System Note Provider Name and Address Organization Details Recorded Time 56644 Compazine medicatio n myalgias (muscle pain) moderate low 10/19/2022 [address] [facility] 4 10:30:07 79800 Darvocet- N medicatio n hives mild low 06/20/[address] [facility] 4 10:30:27 22117 Toradol medicatio n hives Not available Not available 08/21/[address] [facility] 4 16:04:49 Medications Name Sig Start Date [...] AREA TWICE A DAY FOR 4 WEEKS 10/22 /2025 completed Not Available Not Available Not Available [...] Available Not Available Not Available amoxicillin 875 mg-potmanuelitou m clavulanate 125 mg tablet TAKE 1 [...] 29 gauge x 1/2 USE directed with Vickikeza. active Not Available Not Available No t [...] Vitals Date Recorded Body height Oxygen saturation Inhaled oxygen flow rate Heart rate Respiratory rate Systolic And Diastolic Provider Name and Address Organization Details Last Updated DateTime 5 163.83 cm 95 % 3 L/min 108 /min 28 /min 152/90 mm[Hg] MAGGIE CHUNG [facility] 5 12:40:32 Social History None recorded. Functional [...] 50 mcg/0.25mL dose 1 completed YANNICK moy [facility] 09/04/2023 12:02:17 COVID-19, mRNA, LNP-S, PF, 100 mcg/0.5mL dose or 50 mcg/0.25mL dose 1 completed YANNICK moy [facility] 09/04/2023 12:02:17 COVID-19, mRNA, LNP-S, PF, 100 mcg/0.5mL dose or 50 mcg/0.25mL dose 1 completed YANNICK moy [facility] 09/04/2023 12:02:17 Pneumococcal conjugate PCV20, polysaccharide EUV325 conjugate, adjuvant, PF 3 completed YANNICK moy [facility] 09/04/2023 12:02:17 Pneumococcal conjugate PCV20, polysaccharide UFG508 conjugate, adjuvant, PF 2 completed YANNICK moy [facility] 09/04/2023 12:02:17 COVID-19, mRNA, LNP-S, PF, 50 mcg/0.5 mL dose 2 completed YANNICK moy [facility] 09/04/2023 12:02:17 pneumococcal polysaccharide PPV23 8 completed YANNICK moy [facility] 09/04/2023 12:02:17 Tdap 2 completed YANNICK moy [facility] 09/04/2023 12:02:17 Tdap 3 completed YANNICK moy [facility] 09/04/2023 12:02:17 Influenza, split virus, trivalent, PF 5 completed YANNICK PERSON null, [facility] 09/04/2023 12:02:17 Influenza, split virus, quadrivalent, PF 3 completed YANNICK PERSON null, [facility] 09/04/2023 12:02:17 Influenza, split virus, quadrivalent, PF 8 completed YANNICK PERSON null, [facility] 09/04/2023 12:02:17 Influenza, split virus, quadrivalent, PF 2 completed YANNICK moy, [facility] 09/04/2023 12:02:17 Influenza, split virus, quadrivalent, PF 9 completed YANNICK moy, [facility] 09/04/2023 12:02:17 meningococcal B, OMV 4 completed YANNICK moy, [facility] 09/07/2023 11:21:49 meningococcal conjugate quadrivalent, MenACWY-TT (MCV4) 4 [facility]/07/2023 11:21:49 Pneumococcal conjugate PCV20, polysaccharide QDM417 conjugate, adjuvant, PF 4 completed YANNICK moy, [facility] 09/07/2023 11:21:49 Hib (PRP-T) [address] [facility] 09/07/2023 11:21:49 Influenza, split virus, trivalent, PF 4 completed Not Available [facility] 01/11/2025 11:39:54 Past Encounters Encounter ID Performer Location Encounter Start Date Encounter Closed Date Diagnosis/Indication Diagnosis SNOMED-CT Code Diagnosis ICD10 Code Diagnosis IMO Codes Diagnosis Note [id number] Delta Wade MD [facility] ([facility]) [address] [place] [address] 12/21/2024 09:09:05 12/22/2024 11:06:01 Pulmonary embolism 34171902 I26.99 INR was 0.9 recently at [place] by her report. [id number] RALEIGH MCELROY [facility] ([facility]) [address] [place] [address] 01/11/2025 11:37:07 01/11/2025 16:52:31 Chronic obstructive pulmonary disease 45207477 J44.9 Her PCP has been trying to [...] on 12/18/[address] Wade for patient. [facility] ed type 2 diabetes mellitus 531663105 E11.65 [id number] Chronic pain syndrome 37 9757667 G89.[address] Wade. She has not [...] Name 01/11/2025 1 [place] Le Barnhart [id number] Le Barnhart Notes Date Note Type Note Provider Name and Address Organization Details Recorded Time 01/11/2025 text/html COPDReported by PatientHPI:For severity, patient reportsvery limiting. For duration, patient reportschronic,has noted for years, andconstant. For alleviating factors, patient reportsrelieved with restandrelieved with oxygen. Delta Wade MD [address] [place] [address], [address], [facility] 01/11/2025 17:20:33 OBGyn Episode No OBEpisode recorded.
--- OUTSIDE RECORDS SUMMARY | 2025-02-26 06:24 | XMS_ITS | Encounter Summary ---
Author Organization [facility] Address [address] [place] [address] Care Team Providers Care Bolt Sawyer Name Role Phone Marcia Claros MD Primary Care Provider +1- [phone] Reason for Visit * Reason Comments Hospital Follow Up Encounter Details Date Type Department Care Team ([facility] st Contact Info) Description 05/13/2024 Telephone [facility] Family Medicine [place] [address] [facility] [address] [place] [address] Kay Lima, HEAD SAWYER [address] [place] [address] Hospital Follow Up Social History [...] on file Legal Sex Female 11:49 PM DRAIN TECHNICIAN Gender Identity Not on file Sexual Orientation Not on file documented as of this encounter Miscellaneous Notes * Telephone Encounter - Danyell Rashidghann - 05/13/2024 12:30 PM DRAIN TECHNICIAN Called pt back. Could not leave voicemail. If patient calls back please schedule for hospital follow up appointment for the next opening spot. Can be vv if patient cannot travel to clinic. N TECHNICIAN * Telephone Encounter - Gypsy Gerber - 05/13/2024 12:02 PM CST Copied from [facility] #[id number]. Topic: Reschedule/Cancel Appointment/Late Arrival >> May 13, [...] of hospital discharge? 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 [facility] N TECHNICIAN documented in this encounter Plan of Treatment Upcoming Encounters Date Type Department Care Team (Latest Contact Info) Description 03/22/2025 10:30 AM DRAIN TECHNICIAN Hospital Encounter [facility] Surgery [place] [address] [place] [phone] Kumar Ochoa MD [address] [facility] [address] [place] [address] Combined forms of age-related cataract of right eye 08/24/2025 2:20 PM CDT Office Visit [address] [address] Marcia Claros MD [address] [place] [phone] Scheduled Procedures Name Priority Associated Diagnoses Date/Ti me CATARACT EXTRACTION IOL INSERTION FEMTO LASER ASSISTED LEVEL 1 Combined forms of age-related cataract of right eye Right retinal detachment 03/22/2025 7:35 AM DRAIN TECHNICIAN PARS PLANA VITRECTOMY WITH LASER Combined forms of age-related cataract of right eye Right retinal detachment 03/22/2025 7:35 AM DRAIN TECHNICIAN EYE PLACEMENT OF SILICONE OIL Combined forms of age-related cataract of right eye Right retinal detachment 03/22/2025 7:35 AM DRAIN TECHNICIAN documented as of this encounter Goals [...] R/O COVID-19 05/13/2024 05/13/2024 05/14/2024 4:15 AM DRAIN TECHNICIAN R/O Respiratory 06/30/2024 06/30/2024 06/30/2024 1 0:36 [...] documented as of this encounter Care Teams Bolt Sawyer Relationship Specialty Start Date End Date Marcia Claros MD [address] [place] [phone] PCP - General Family Practice 02/23/25 documented as of this encounter
--- OUTSIDE RECORDS SUMMARY | 2025-02-26 06:24 | XMS_ITS | Encounter Summary ---
Author Organization [facility] Address [address] [place] [address] Care Team Providers Care Property Disposal Officer Name Role Phone Marcia Claros MD Primary Care Provider +1- [phone] Encounter Details Date Type Department Care Team (Latest Contact Info) Description 01/05/2025 Results Follow-Up [facility] Emergency Department [address] [place] [address] Ayana Roman, RN BLOOD CULTURE, [...] any clubs o r organizations such as congregational groups, unions, fraternal or athletic groups, or [...] worry about transportation for future doctor visits, fruit picker medication, etc.? Prefer not to answer 01/07/2025 [...] on file Legal Sex Female 11:49 PM BARREL POLISHER INSIDE Gender Identity Not on file Sexual Orientation Not on file documented as of this encounter Plan of Treatment Upcoming Encounters Date Type Department Care Team (Latest Contact Info) Description 03/22/2025 10:30 AM BARREL POLISHER INSIDE Hospital Encounter [facility] [address] [facility] [address] [place] [address] Kumar Ochoa MD [address] [facility] [address] [place] [phone] Combined forms of age-related cataract of right eye 08/24/2025 2:20 PM CDT Office Visit [facility] Medicine [address] [phone] Marcia Claros MD [address] [address] Scheduled Procedures Name Priority Associated Diagnoses Date/Ti me CATARACT EXTRACTION IOL INSERTION FEMTO LASER ASSISTED LEVEL 1 Combined forms of age-related cataract of right eye Right retinal detachment 03/22/2025 7:35 AM BARREL POLISHER INSIDE PARS PLANA VITRECTOMY WITH LASER Combined forms of age-related cataract of right eye Right retinal detachment 03/22/2025 7:35 AM BARREL POLISHER INSIDE EYE PLACEMENT OF SILICONE OIL Combined forms of age-related cataract of right eye Right retinal detachment 03/22/2025 7:35 AM BARREL POLISHER INSIDE documented as of this encounter Goals Goal [...] Heart Failure Problem 05/12/2024 Autogenerated Problem 01/25/2025 Infection Onset Date Last Indicated Resolved Time R/O Respiratory 01/07/2025 01/07/2025 01/08/2025 5 :44 AM CDT R/O Respiratory 01/17/2025 01/17/2025 01/17/2025 1 1:46 PM CDT Assessment Noted Time PHQ-9 Depression Total Score: 1 01/05/20 12:49 PM CDT documented as of this encounter Care Teams Property Disposal Officer Relationship Specialty Start Date End Date Marcia Claros MD [address] [place] [address] PCP - General Family Practice 02/23/25 documented as of this encounter
--- OUTSIDE RECORDS SUMMARY | 2025-02-26 06:24 | XMS_ITS | Encounter Summary ---
Author Organization [facility] Address [address] [place] [address] Care Team Providers Care Meat Sales And Storage Manager Name Role Phone Marcia Claros MD Primary Care Provider +1- [phone] Reason for Visit * Reason Comments Wants Appointment Encounter Details Date Type Department Care Team ([facility] st Contact Info) Description 02/22/2025 Telephone [facility] Family Medicine [place] [address] [facility] [address] [place] [address] Ryann Burk MD [address] [facility] [address] [place] [address] Wants Appointment Social History Tobacco Use Types Packs/Day [...] often do you attend chur ch or protestant services? More than 4 times per year 06/13/2019 Do you belong to any clubs o r organizations such as adventism groups, unions, fraternal or athletic groups, or [...] worry about transportation for future doctor visits, apple picking supervisor medication, etc.? No 2024 Housing Stability Answer Date Recorded Do you worry you won t have a steady place to sleep or struggle to pay rent or mortgage? No 01/21/2025 Utility Needs Answer Date Recorded Do you have difficulty payin g for utility costs ([employer], water or gas bills)? No 01/21/2025 Medication [...] on file Legal Sex Female 11:49 PM CALCINE FURNACE LOADER Gender Identity Not on file Sexual Orientation Not on file documented as of this encounter Miscellaneous Notes * Telephone Encounter - Harika Michael - 02/22/2025 9:06 AM CST Copied from [facility] #[id number]. Topic: CPA Information Request - Appointment/Location Information >> Feb 22, 2025 9:03 AM Harika Harris wrote: Marcin, on phi, is calling to request Dr Burk take her back as a patient. He states she is dying and no one will help her. She has been taken off of hospice and oxygen has been taken away. Her bloodsugar is in the 600's because no one will prescribe her insulin. I did advise that patient has beendismissed from the clinic and he said that he is begging for a chance to save her. Please call at [phone] INE FURNACE LOADER documented in this encounter Plan of Treatment Upcoming Encounters Date Type Department Care Team (Latest Contact Info) Description 03/22/2025 10:30 AM CALCINE FURNACE LOADER Hospital Encounter [facility] [address] [place] [phone] Kumar Ochoa MD [address] [facility] [address] [place] [address] Combined forms of age-related cataract of right eye 08/24/2025 2:20 PM CDT Office Visit [facility] [address] [phone] Marcia Claros MD [address] [address] Scheduled Procedures Name Priority Associated Diagnoses Date/Ti me CATARACT EXTRACTION IOL INSERTION FEMTO LASER ASSISTED LEVEL 1 Combined forms of age-related cataract of right eye Right retinal detachment 03/22/2025 7:35 AM CALCINE FURNACE LOADER PARS PLANA VITRECTOMY WITH LASER Combined forms of age-related cataract of right eye Right retinal detachment 03/22/2025 7:35 AM CALCINE FURNACE LOADER EYE PLACEMENT OF SILICONE OIL Combined forms of age-related cataract of right eye Right retinal detachment 03/22/2025 7:35 AM CALCINE FURNACE LOADER documented as of this encounter Goals Goal [...] documented as of this encounter Care Teams Meat Sales And Storage Manager Relationship Specialty Start Date End Date Marcia Claros MD [address] [address] PCP - General Family Practice 02/23/25 documented as of this encounter
--- OUTSIDE RECORDS SUMMARY | 2025-02-26 06:24 | XMS_ITS | Encounter Summary ---
Author Organization [facility] Address [address] [place] [address] Care Team Providers Care Nail Sticker Name Role Phone Unavailable Primary Care Provider Unavailabl e Reason for Visit * Reason Onset Date Comments Surgery Talk 02/20/2025 Called patient a nd discussed rescheduling her surgery combo to a later date; patient became upset, used profanity, and then hung up. Encounter Details Date Type Department Care Team ([facility] Contact Info) Description 02/20/2025 Telephone [facility] Ophthalmology [place] [address] [address] Kumar Ochoa MD [address] [address] Surgery Talk (Called patient and discussed rescheduling her surgery combo to a later date; patient became upset, used profanity, and then hung up.) Social History Tobacco Use Types Packs/Day Years [...] How often do you attend chur or muslim services? More than 4 times per year 06/13/2019 Do you belong to any clubs o r organizations such as roman catholic groups, unions, fraternal or athletic groups, [...] worry about transportation for future doctor visits, picket labor union medication, etc.? No 2024 Housing Stability Answer [...] file Legal Sex Female 11:49 PM ADMINISTRATIVE INTERN Gender Identity Not on file Sexual Orientation Not on file documented as of this encounter Miscellaneous Notes * Telephone Encounter - Windy Dubois - 02/20/2025 1:36 PM ADMINISTRATIVE INTERN Called patient and discussed rescheduling her surgery combo to a later date; patient became upset, used profanity, and then hung up. NISTRATIVE INTERN documented in this encounter Plan of Treatment Upcoming Encounters Date Type Department Care Team (Latest Contact Info) Description 03/22/2025 10:30 AM ADMINISTRATIVE INTERN Hospital Encounter [facility] Surgery [place] [address] [place] [phone] Kumar Ochoa MD [address] [facility] [address] [place] [address] Combined forms of age-related cataract of right eye 08/24/2025 2:20 PM CDT Office Visit [address] [phone] Marcia Claros MD [address] [phone] Scheduled Procedures Name Priority Associated Diagnoses Date/Ti me CATARACT EXTRACTION IOL INSERTION FEMTO LASER ASSISTED LEVEL 1 Combined forms of age-related cataract of right eye Right retinal detachment 03/22/2025 7:35 AM ADMINISTRATIVE INTERN PARS PLANA VITRECTOMY WITH LASER Combined forms of age-related cataract of right eye Right retinal detachment 03/22/2025 7:35 AM ADMINISTRATIVE INTERN EYE PLACEMENT OF SILICONE OIL Combined forms of age-related cataract of right eye Right retinal detachment 03/22/2025 7:35 AM ADMINISTRATIVE INTERN documented as of this encounter Goals Goal [...]
--- OUTSIDE RECORDS SUMMARY | 2025-02-26 06:24 | XMS_ITS | Continuity of Care Document ---
Author Organization [facility] [place], [place], [facility] ([facility]) Address [address] [place] [address] Assessment No assessment recorded. Plan of Treatment Reminders Order Date Submit Date Provider Last Modified By Organization Details Last Modified Time Details Appointments None record ed. Lab PT/INR 025 12/22/19 [facility]), [address] [place], [address], 09:16:46 Referral None record ed. Procedures None record ed. Surgeries None record ed. Imaging None record ed. Medication Orders None record ed. Patient TargetsNo targets recorded. Patient InstructionsNo instructions recorded. Reason for Referral None Reported. Results Created Date Observation Date Name Description Value Unit Range Abnormal Flag Note LastModifiedBy Organization Detail LastModifiedTime 12/22/1912/21/2024 PT/IN R Protime 12.7 Not Available [facility]) [address] [place], [address], 12/21/2024 09:10:20 12/22/19 25 12/21/2024 PT/IN R INR 1.1 Not Available [facility]) [address] [place], [address], 12/21/2024 09:10:20 01/30/20 25 01/29/2025 XR, chest , 2 view No observ ation record ed. [email or web address] [facility] [address] [facility], [place], [address], 01/29/2025 20:36:49 Result Notes None recorded. Problems Name Problem SNOMED Code Status Onset Date Resolution Date Notes Provider Name and Address Organization Details Recorded Time Pulmonary embolism 42062701 Active 2023 JOSE moy, [facility] 5 14:52:04 Coronary arterioscle rosis 04526577 Active 2023 JOSE moy, [facility] 5 14:52:04 Essential hypertensio n 96845723 Active 2023 JOSE moy, [facility] 5 14:52:04 Type 2 diabetes mellitus 78266110 Active 2023 JOSE moy [facility] 5 14:52:04 Mixed anxiety and depressive disorder 316462942 Active 2023 JOSE moy, [facility] 5 14:52:04 Chronic osteoarthri tis 99788498 [facility] 14:52:04 Chronic obstructive pulmonary disease 22100353 Active 2023 JOSE moy, [facility] 5 14:52:04 Pain of left shoulder joint 2171978951657 9109 Active 2023 JOSE moy [facility] 5 14:52:04 Syncope 351845724 [facility] 2023 [facility] 14:52:04 Edema of lower extremity 577103196 Active 2023 JOSE moy [facility] 5 14:52:04 Urinary incontinenc e 515318438 Active 2023 JOSE BRIGHT null, [facility] 5 14:52:04 Recurrent falls 443336821 Active 2023 JOSE BRIGHT null, [facility] 5 14:52:04 Gastroesoph ageal reflux disease 094470597 Active 2023 JOSE BRIGHT null, [facility] 5 14:52:04 Major depressive disorder 224775180 Active 2023 [facility] 14:52:04 Chronic systolic heart failure 787358944 Active 2024 JOSE BRIGHT null, [facility] 5 14:52:04 Generalized anxiety disorder 17691664 Active 2024 [facility] 14:52:04 Chronic diastolic heart failure 253448085 Active 2024 [facility] 5 14:52:04 Closed fracture lumbar vertebra, wedge 152650201 Active 2024 [facility] 5 10:07:16 Mass of right lower lobe of lung 0000492235989 09 Active 2024 [facility] 5 10:07:03 Compression fracture of lumbar spine 349545886 Active 2024 [facility] 5 14:30:37 Supraventri cular tachycardia 1711276 Active 2024 [facility] PERSON [facility] 5 14:30:29 Abdominal pain 35712503 Active 2024 YANNICK NAYA [facility] 5 17:07:23 Chronic constipatio n 736055091 Active 2024 [facility] PERSON [facility] 5 17:07:18 Problem Notes None recorded. Procedures Surgical History Date Name Laterality Status Provider Name and Address Organization Details Recorded Time Splenectomy completed Sonal Hollis [facility] 08/14/2023 11:39:32 Imaging Results None recorded. Procedure Notes None recorded. Medical Equipment None Reported. Allergies Allergen ID Allergen Name Allergen Category Reaction Reaction Severity Criticality Documentation Date Start Date Code Code System Note Provider Name and Address Organization Details Recorded Time 72800 Compazine medicatio n myalgias (muscle pain) moderate low 10/19/2022 01372 6 RxNorm Lolasarah beth Redmond [facility] 4 10:30:07 13815 Darvocet- N medicatio n hives mild low 06/20/2023 Lola Redmond [facility] 4 10:30:27 05657 Toradol medicatio n hives Not available Not available 08/21/2023 92069 RxNorm JOSE BRIGHT [facility] 4 16:04:49 Medications Name Sig [...] Not Available Not Available Not Available Vitals None Recorded Social History None recorded. Functional Status Question [...] 50 mcg/0.25mL dose 1 completed YANNICK PERSON [facility] 09/04/2023 12:02:17 COVID-19, mRNA, LNP-S, PF, 100 mcg/0.5mL dose or 50 mcg/0.25mL dose 1 completed YANNICK moy [facility] 09/04/2023 12:02:17 COVID-19, mRNA, LNP-S, PF, 100 mcg/0.5mL dose or 50 mcg/0.25mL dose 1 completed YANNICK PERSON null, [facility] 09/04/2023 12:02:17 Pneumococcal conjugate PCV20, polysaccharide [id number] conjugate, adjuvant, PF 3 completed YANNICK PERSON null, [facility] 09/04/2023 12:02:17 Pneumococcal conjugate PCV20, polysaccharide [id number] conjugate, adjuvant, PF 2 completed YANNICK PERSON null, [facility] 09/04/2023 12:02:17 COVID-19, mRNA, LNP-S, PF, 50 mcg/0.5 mL dose 2 completed YANNICK HORNRIS null, [facility] 09/04/2023 12:02:17 pneumococcal polysaccharide PPV23 8 completed YANNICK HORNRIS null, [facility] 09/04/2023 12:02:17 Tdap 2 completed YANNICK PERSON null, [facility] 09/04/2023 12:02:17 Tdap 3 completed YANNICK PERSON null, [facility], [...] virus, quadrivalent, PF 9 completed YANNICK moy, [facility] 09/04/2023 12:02:17 meningococcal B, OMV 4 completed YANNICK moy, [facility] 09/07/2023 11:21:49 meningococcal conjugate quadrivalent, MenACWY-TT (MCV4) 4 completed YANNICK HORNRIS farzaneh, [facility] 09/07/2023 11:21:49 Pneumococcal conjugate PCV20, polysaccharide [id number] conjugate, adjuvant, PF 4 completed YANNICK moy, [facility] 09/07/2023 11:21:49 Hib (PRP-T) 4 completed YANNICK moy, [facility] 09/07/2023 11:21:49 Influenza, split virus, trivalent, PF 4 completed Not Available [facility] 01/11/2025 11:39:54 Past Encounters Encounter ID Performer Location Encounter Start Date Encounter Closed Date Diagnosis/Indication Diagnosis SNOMED-CT Code Diagnosis ICD10 Code Diagnosis IMO Codes Diagnosis Note [id number] Delta Wade MD [facility] ([facility]) [address] [place] [address] 12/21/2024 09:09:05 12/22/2024 11:06:01 Pulmonary embolism 40307162 I26.99 INR was 0.9 recently at [place] by her report. Health Concerns Section Related Observation LastModified by Organization Detai ls LastModified Time None Recorded Concern Status LastModified by Organization Details LastModified Time None Recorded Payers Encounter Date Sequence Insurance Name Policy Number Policy Esquivel Covered Member ID Esquivel Member ID Guarantor Name 12/21/2024 1 [place] Le Barnhart [id number] Le Barnhart OBGyn Episode No OBEpisode recorded.
--- OUTSIDE RECORDS SUMMARY | 2025-02-26 06:24 | XMS_ITS | CCD ---
Author Name Interface, [id number] lity Address [address] [facility] [place] [address] [facility] Address [address] [place] [address] Care Team Providers Care Desulfurizer Operator Name Role Phone Anika VALLADARES, Allen [...]
--- OUTSIDE RECORDS SUMMARY | 2025-02-26 06:24 | XMS_ITS | Patient Health Record ---
Author Organization [facility] Address [address] [place] [address] Care Team Providers Care Paving Foreman Name Role Phone ( [facility] ), PHYSICIAN NOT IDENTIFIED Primary Care Provider Unavailable DR. Dominguez Mckay Unavailable [phone] Allergies Allergen (clinical drug ingredient) Drug/Non Drug [...] Female Encounters Encounter Location Date Provider Diagnosis [facility] [address] [place] [address] 06/08/2024 [address]ay [address] [place] [address] [address] [place] [address] 09/28/2024 Dominguez Mckay Plan Of Treatment No Information Insurance Providers Payer Name Payer Address Payer Phone Subscriber Number Group Number Insured Name Patient Relationship to Insured Coverage Start Date Coverage End Date Medicaid Dental [address] [place] [address] [phone] [id number] Le Barnhart Self - patient is the insured Medicaid [address] [place] [address] [id number] Le Barnhart Self - patient is the insured Medical (General) History Medical History History ICD Code heart murmer diabetes emphysema cancer chemotherapy high bp radiation treatment
--- NOTE | 2025-02-26 06:30 | ECG_ITS ---
[facility] Test Date: 2025-02-26 Pat Name: Le Barnhart Department: Room: Gender: Female Steam Hoist Operator: : 1965 Requested By: Radha Barnes Order Number: [id number] Lopez MD: Ivis Drake M.D. Measurements Intervals [place] Rate: 99 P: 259 AR: 131 QRS: 67 QRSD: 93 T: 9 QT: 348 QTc: 447 Interpretive Statements JUNCTIONAL/Ectopic atrial RHYTHM NONSPECIFIC T-WAVE ABNORMALITY ABNORMAL RHYTHM ECG Compared to ECG 01/15/2025 13:45:58 Junctional/Ectopic atrial rhythm now present Junctional tachycardia no longer present Possible ischemia no longer present T-wave abnormality still present Electronically Signed On 03-02-2025 18:24:06 QUANTITATIVE MANAGER by Ivis Drake M.D. [email or web address]
[2025-02-26 06:35] VITALS: BP 122/87; PULSE 98; RESP 15; O2SAT 93
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
--- NOTE | 2025-02-26 06:50 | PC.NURSE ---
patient reported that because the doctor was not willing to give her pain medication and was a neida she was going to be a bitch and leave. I told dr. mathews who said that was fine and i had her sign the ama form and had signature witness with another rn walked patient out. took form to dr. mathews to sign and he said he would just dc her not use the ama form
== END 2025-02-26 06:53 | disposition home or self-care (01) ==
PROVIDERS: Emergency Provider Emergency Medicine
DX: R06.02 Shortness of breath (principal); G89.4 Chronic pain syndrome; Z79.01 Long term (current) use of anticoagulants; Z79.85 Long-term (current) use of injectable non-insulin antidiabetic drugs; Z79.4 Long term (current) use of insulin; Z87.891 Personal history of nicotine dependence; J44.9 Chronic obstructive pulmonary disease, unspecified; E11.9 Type 2 diabetes mellitus without complications; I25.110 Atherosclerotic heart disease of native coronary artery with unstable angina pectoris; I10 Essential (primary) hypertension
CPT/HCPCS: 93005; 99283

== ENCOUNTER 2025-02-27 03:58 | Emergency (ER) | payer MEDICAID, SELFPAY ==
--- OUTSIDE RECORDS SUMMARY | 2020-06-27 09:30 | XMS_ITS | Continuity of Care Document ---
Author Organization [facility] Address [address] [place] [address] Phone Care Team Providers Care Side Puller Name Role Phone Unavailable Unavailable Unavailable Allergies, [...] - Active Procedures Procedure Date OFFICE/OUTPATIENT VISIT, [facility] Advance Directives Directive Yes / No Effective Date File Name No Information Encounters Encounter Description Practice Location Reason(s) For Visit Diagnoses Date Provider Providers Copied on Encounter OFFICE/OUTPA TIENT VISIT, [facility], [address], [place], [place], [address] , [place] tel: [phone] [facility] follow up (chief complaint) COPDEssential (primary) hypertensionAthero sclerotic cardiac diseaseTobacco use disorder, moderateCancer of vagina No Information Family History Family Member Type Diagnosis Age At Onset Mother Problem malignant neopla sm of breast in first degree relative Mother Problem coronary arteriosclerosis Sister Problem stroke Father Problem coronary arteriosclerosis Mother Problem hypertension Payers Payer name Insurance type Covered libertarian ID Authoriza dioni(s) Medicaid - Medical [id number] Social History Type Description Quantity Date Captured [...] her vagina and is being managed at [facility]. Patient has HTN, hip pain, and COPD.Patient [...] her vagina and is being managed at [facility]. Patient has HTN, hip pain, and COPD.Patient [...]
--- OUTSIDE RECORDS SUMMARY | 2024-02-03 05:00 | XMS_ITS ---
Author Organization [facility] Address [address] [place] [phone] Care Team Providers Care Meals On Wheels Driver Name Role Phone ( [facility] ), PHYSICIAN NOT IDENTIFIED Primary Care Provider Unavailable Kyler Martin Unavailable [phone] REASON FOR VISIT wants bottom dentures needs slide - Eugenia if needed Social History Sex Assigned At : Social History Observation Description Sex Assigned At Female Encounters Encounter Location Date Provider Diagnosis [address] [place] [address] Dental Clinic [address] [place] [phone] 02/03/2024 Kyler Martin Plan Of Treatment No Information Progress Notes * Zhang DIAZaDOB:1965 (59 yo F)Acc No.[id number]:02/03/2024 Patient: Le Colindres Provider: Tawanda Martin DMD :1965 A ge:58 Y S ex:Female Date:02/03/2024 Address:[address] [place], [place] [id number] Pcp:PHYSICIAN NOT IDENTIFIED ( [facility] ) Subjective: * Chief Complaints: * w ants bottom dentures needs slide - Eugenia if needed Billing Information: * Procedure Codes: * Electronic signature of Antelmo Martin DMD on 02/27/2025 at 04:05 AM MAIN LINE STATION ENGINEER Sign off status: Pending * Provider: Tawanda Martin DMD Date: 04/04/2023 Generated for Mani contreras/Moshe/eTransmitting on: 04/30/2024 04:05 AM MAIN LINE STATION ENGINEER
--- OUTSIDE RECORDS SUMMARY | 2024-05-06 04:30 | XMS_ITS ---
Author Organization [facility] Address [address] [place] [address] Care Team Providers Care Supervisory Clerk Name Role Phone Delta Wade Primary Care Provider Jose Cruz Harvey Unavailable [phone] Acacia Gaines Unavailable [phone] [facility] Encounters Encounter Location Date Provider Diagnosis [facility] [address] [place] [phone] 05/06/2024 Acacia Gaines Plan Of Treatment No [...] mitral regurgitation. Prior cardiac care was in [place]. She was admitted to the hospital with chest discomfort on April 04 and ruled in for non-ST elevation [place]. Patient was evaluated by Dr. Nunez and [...] GIANFRANCO DIAZ JDOB: 6 (59 yo F)Acc No.[id number]:05/06/2024 Patient: GIANFRANCO GARCIA Provider: Cameron Gaines NP :1965 A ge:58 Y S ex:Female Date:05/06/2024 Address:[address] [place], [place] [phone] Pcp:Delta Wade Subjective: * Chief Complaints: * [...] mitral regurgitation. Prior cardiac care was in [place]. She was admitted to the hospital with chest discomfort on April 04 and ruled in for non-ST elevation [place]. Patient was evaluated by Dr. Nunez and [...] Codes: * Electronic signature of CRIS Ellis, CANDLE CUTTER-C on 02/27/2025 at 04:04 AM OFFICE WORKER Sign off status: Pending * Provider: Cameron Gaines NP Date: 0 05/06/2024 Generated for Mani contreras/Moshe/Adrianitting on: 1 04/30/2024 04:04 AM OFFICE WORKER
--- OUTSIDE RECORDS SUMMARY | 2024-07-12 08:00 | XMS_ITS ---
Author Organization [facility] Address [address] [place] [address] Care Team Providers Care Strategy Consultant Name Role Phone Delta Wade Primary Care Provider Jose Cruz Harvey [phone] REASON FOR VISIT [phone] Encounters Encounter Location Date Provider Diagnosis [facility] [address] [place] [address] [place] [address] 07/12/2024 Jose Cruz Forde Plan Of Treatment No Information Progress Notes * GIANFRANCO DIAZDOB: [birth year] (59 yo F)Acc No.[id number]:07/12/2024 Pulmonary Function Test Patient: Jahaira GIANFRANCO HANNA Provider: Abdirahman Forde MD :1965 A ge:59 Y S ex:Female Date:07/12/2024 Address:[address] [place], [place] [phone] Pcp:Delta Wade Subjective: * Chief Complaints: * 6 [id number] Billing Information: * Procedure Codes: * Electronic signature of Natasha Forde MD on 02/27/2025 at 04:03 AM MOVEMENT ASSEMBLER Sign off status: Pending * Provider: Abdirahman Forde MD Date: 0 07/12/2024 Generated for Mani contreras/Moshe/eTransmitting on: 04/30/2024 04:03 AM MOVEMENT ASSEMBLER
--- OUTSIDE RECORDS SUMMARY | 2024-07-12 09:00 | XMS_ITS ---
Author Organization [facility] Address [address] [place] [address] Care Team Providers Care Cold Type Composing Machine Operator Name Role Phone Delta Wade Primary Care Provider Jose Cruz Harvey [phone] REASON FOR VISIT [phone] Encounters Encounter Location Date Provider Diagnosis [facility] [address] [place] [address] [place] [address] 07/12/2024 Jose Cruz Forde Plan Of Treatment No Information Progress Notes * GIANFRANCO DIAZDOB: [birth year] (59 yo F)Acc No.[id number]:07/12/2024 Progress Notes Patient: Jahaira GIANFRANCO HANNA Provider: Abdirahman Forde MD :1965 A ge:59 Y S ex:Female Date:07/12/2024 Address:[address] [place], [place] [phone] Pcp:Delta Wade Subjective: * Chief Complaints: * 6 [id number] Billing Information: * Procedure Codes: Care Plan Details* * Electronic signature of Natasha Forde MD on 02/27/2025 at 04:04 AM TEAM ASSISTANT Sign off status: Pending * Provider: Abdirahman Forde MD Date: 0 07/12/2024 Generated for Sydnii diane/Moshe/eTransmitting on: 04/30/2024 04:04 AM TEAM ASSISTANT
--- OUTSIDE RECORDS SUMMARY | 2024-07-13 03:30 | XMS_ITS ---
Author Organization [facility] Address [address] [place] [address] Care Team Providers Care Pressing Machine Tender Name Role Phone ( [facility] ), PHYSICIAN NOT IDENTIFIED Primary Care Provider DR. Dominguez Pate Unavailable [phone] REASON FOR VISIT cavity on lower- Social History Sex Assigned At : Social History Observation Description Sex Assigned At Female Encounters Encounter Location Date Provider Diagnosis [address] [place] [address] Dental Clinic [address] [place] [phone] 07/13/2024 Dominguez Mckay Plan Of Treatment No Information Progress Notes * Zhang DIAZaDOB:1965 (59 yo F)Acc No.[id number]:07/13/2024 Patient: Le Colindres Provider: Jahaira Mckay DDS :1965 A ge:59 Y S ex:Female Date:07/13/2024 Address:[address] [place], [place] [phone] Pcp:PHYSICIAN NOT IDENTIFIED ( [facility] ) Subjective: * Chief Complaints: * C avity on lower- Billing Information: * Procedure Codes: * Electronic signature of DR. Dominguez Mckay DDS on 02/27/2025 at 04:02 AM CLINICAL DENTAL TECHNICIAN Sign off status: Pending * Provider: Jahaira Mckay DDS Date: 0 07/13/2024 Generated for Printi ng/Faxing/eTransmitting on: 1 04/30/2024 04:02 AM CLINICAL DENTAL TECHNICIAN
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
--- OUTSIDE RECORDS SUMMARY | 2025-01-16 02:00 | XMS_ITS ---
Author Organization [facility] Address [address] [place] [phone] Care Team Providers Care County Administrator Name Role Phone ( [facility] ), PHYSICIAN NOT IDENTIFIED Primary Care Provider DR. Dominguez Pate Unavailable [phone] REASON FOR VISIT wants 4 teeth pulled Social History Sex Assigned At : Social History Observation Description Sex Assigned At Female Encounters Encounter Location Date Provider Diagnosis [address] [place] [address] Dental Clinic [address] [place] [phone] 01/16/2025 Dominguez Mckay Plan Of Treatment No Information Progress Notes * Zhang DIAZIvettB:1965 (59 yo F)Acc No.[id number]:01/16/2025 Patient: Le Colindres Provider: Jahaira Mckay DDS :1965 A ge:59 Y S ex:Female Date:01/16/2025 Address:[address] [place], [place] [id number] Pcp:PHYSICIAN NOT IDENTIFIED ( [facility] ) Subjective: * Chief Complaints: * W ants 4 teeth pulled Billing Information: * Procedure Codes: * Electronic signature of DR. Dominguez Mckay DDS on 02/27/2025 at 04:02 AM ELECTROPHYSIOLOGY SCIENTIST Sign off status: Pending * Provider: Jahaira Mckay DDS Date: Generated for Printi ng/Faxing/eTransmitting on: 04/30/2024 04:02 AM ELECTROPHYSIOLOGY SCIENTIST
--- OUTSIDE RECORDS SUMMARY | 2025-02-23 16:00 | XMS_ITS | Encounter Summary ---
Author Organization [facility] Address [address] [place] [address] Care Team Providers Care Sushi Chef Name Role Phone Marcia Claros MD Primary Care Provider +1- [phone] Reason for Referral * Medication Prior Authorization - Pending Review Specialty Diagnoses / Procedures Referred By Marcelle t Referred To Contact Diagnoses Congestive heart failure, unspecified HF chronicity, unspecified heart failure type (CMS/HCC) Marcia Claros MD [address] [address] Phone: tel: fax: Referral ID Status Reason Start Date Expiration Date V isits Requested Visits Authorized [id number] Pending Review 1 1 ND WATER CONTRACTOR * Hospice (Routine) - Closed Specialty Diagnoses / Procedures Referred By Contteri t Referred To Contact Diagnoses Acute respiratory failure with hypoxia and hypercapnia (CMS/HCC) Centrilobular emphysema (CMS/HCC) Marcia Claros MD [address] [address] Phone: tel: fax: Hospice [facility] ([facility] [address] [address] Phone: tel: fax: Referral ID Status Reason Start Date Expiration Date Visits Re quested Visits Authorized [id number] Closed 02/23/2025 02/23/2026 1 1 ND WATER CONTRACTOR Reason for Visit * Reason Comments Establish Care Referral Request Hospice Encounter Details Date Type Department Care Team (Latest Contact Info) Description 02/23/2025 4:00 PM GROUND WATER CONTRACTOR Office Visit [facility] [address] [address] Marcia Claros MD [address] [address] Centrilobular emphysema (CMS/HCC) (Primary Dx); [...] Never 06/13/2019 How often do you attend [facility] or confucianist services? More than 4 times per year [...] on file Legal Sex Female 11:49 PM GROUND WATER CONTRACTOR Gender Identity Not on file Sexual Orientation Not on file documented as of this encounter Last Filed Vital Signs Vital Sign Reading Time Taken Comments Blood Pressure 126/70 02/23/2025 3:50 PM GROUND WATER CONTRACTOR Pulse 100 02/23/2025 3:50 PM GROUND WATER CONTRACTOR Temperature 36.6 C (97.9 F) 02/23/2025 3:50 PM GROUND WATER CONTRACTOR Respiratory Rate 16 02/23/2025 3:50 PM GROUND WATER CONTRACTOR Oxygen Saturation 96% 02/23/2025 3:50 PM GROUND WATER CONTRACTOR Inhaled Oxygen Concentration - - Weight 94.3 kg (208 lb) 02/23/2025 3:50 PM GROUND WATER CONTRACTOR Height 165.1 cm (5' 5 ) 02/23/2025 3:50 PM GROUND WATER CONTRACTOR Body Mass Index 34.61 02/23/2025 3:50 PM GROUND WATER CONTRACTOR documented in this encounter Progress Notes * Marcia Claros MD - 02/23/2025 3:52 PM CST HISTORY OF PRESENT ILLNESS Le Barnhart, a 59 y.o. 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 Former smoker Z87.891 Mixed hyperlipidemia E78.2 H/O vaginal surgery Z98.890 Atherosclerosis of [place] coronary artery of [place] heart without angina pectoris I25.10 Asthma J45.909 Chronic pain syndrome G89.4 Osteoarthritis of cervical spine M47.812 HEENA (generalized anxiety disorder) F41.1 GERD (gastroesophageal reflux disease) K21.9 Opioid dependence ([facility]) F11.20 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 History of breast cancer Z85.3 Type 2 diabetes mellitus without complication, without long-term current use of insulin ([facility]) E11.9 H/O mastectomy, right Z90.11 Closed nondisplaced fracture of body of left scapula S42.115D Hematoma of spleen after procedure on spleen D78.31 Splenic cyst D73.4 Adynamic ileus ([facility]) K56.0 Protein-calorie malnutrition, moderate E44.0 History of splenectomy Z90.81 History of pulmonary embolism Z86.711 Hot flashes R23.2 Snoring R06.83 Daytime somnolence R40.0 Non-proliferative diabetic retinopathy, left eye ([facility]) E11.3292 Nuclear age-related cataract, both eyes H25.13 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 vein occlusion with neovascularization of right eye ([facility]) H34.8111 Neuropathy G62.9 Hammertoe of left foot M20.42 Chronic respiratory failure with hypoxia, on home O2 therapy ([facility]) J96.11, Z99.81 Anemia D64.9 HFrEF (heart failure with reduced ejection fraction) ([facility]) I50.20 Chronic combined systolic and diastolic heart failure ([facility]) I50.42 Vagina absent Q52.0 Insulin dependent type 2 diabetes mellitus ([facility]) E11.9, Z79.4 Benign hypertension I10 CAD (coronary atherosclerotic disease) I25.10 Morbid obesity due to excess calories ([facility]) E66.01 Chronic anticoagulation Z79.01 Fall W19.XXXA L1 vertebral fracture ([facility]) S32.019A Closed compression fracture of body of L1 vertebra ([facility]) S32.010A Back pain M54.9 At risk for obstructive sleep apnea Z91.89 Centrilobular emphysema ([facility]) J43.2 Essential hypertension I[address] R93.89 Diabetes mellitus with hyperglycemia ([facility]) E11.65 Hepatic steatosis K76.0 COPD exacerbation ([facility]) J44.1 Consolidation of left lower lobe of lung J18.1 Left arm swelling M79.89 Type 2 diabetes mellitus with hyperglycemia, with long-term current use of insulin ([facility]) E11.65, Z79.4 Demand ischemia of myocardium (CMS/HCC) [...] (CMS/HCC) E11.40 Ischemic cardiomyopathy I25.5 Pulmonary embolism ([facility]) I26.99 Supraventricular tachycardia I47.10 REVIEW OF SYSTEMS [...] and PLAN: ICD-10-CM ICD-9-CM 1. Centrilobular emphysema [place] J43.2 492.8 AMB REFERRAL TO HOSPICE Previously on hospice Desires readmission Referal sent Discussed what hospice involves and desires admission 2. Acute respiratory failure with hypoxia and hypercapnia ([facility]) J96.01 518.81 AMB REFERRAL TO HOSPICE J96.02 Stable on continuous oxygen 3. Type 2 diabetes mellitus without complication, without long-term current use of insulin ([facility] E11.9 250.00 empagliflozin (JARDIANCE) 10 mg tablet POC GLUCOSE Glucose 199 today Restart Lantus per request Monitor at home for hypoglycemia Last HgA1c 10.4 Planned hospice admission 4. Congestive heart failure, unspecified HF chronicity, unspecified heart failure type ([facility]) I50.9 428.0 isosorbide mononitrate (IMDUR) 30 mg Extended Release 24 hour tablet sacubitriL-valsartan (ENTRESTO) 24-26 mg Tablet Compensated Cont Jardiance/metoprolol/Lasix/Entresto 5. Paroxysmal atrial flutter ([facility] I48.92 427.32 Rate controlled Cont Eliquis Marcia [...] injection 2 timesdaily. 15 mL 3 Insulin [place], Disposable, (Comfort EZ Pen [place]) 31 gauge x 1/4 Needle Use with [...] 1 Each 0 naloxone (NARCAN) 4 mg/spray [place], Non-Aerosol EMERGENCY USE ONLY: Administer 1 spray [...] to TID PRN symptoms. 1 Each 0 ND WATER CONTRACTOR documented in this encounter Plan of Treatment Upcoming Encounters Date Type Department Care Team (Latest Contact Info) Description 03/22/2025 10:30 AM GROUND WATER CONTRACTOR Hospital Encounter [facility] [place] [address] [place] [phone] Kumar Ochoa MD [address] [facility] [address] [place] [address] Combined forms of age-related cataract of right eye 08/24/2025 2:20 PM CDT Office Visit [address] [address] Marcia Claros MD [address] [address] Scheduled Procedures Name Priority Associated Diagnoses Date/Ti me CATARACT EXTRACTION IOL INSERTION FEMTO LASER ASSISTED LEVEL 1 Combined forms of age-related cataract of right eye Right retinal detachment 03/22/2025 7:35 AM GROUND WATER CONTRACTOR PARS PLANA VITRECTOMY WITH LASER Combined forms of age-related cataract of right eye Right retinal detachment 03/22/2025 7:35 AM GROUND WATER CONTRACTOR EYE PLACEMENT OF SILICONE OIL Combined forms of age-related cataract of right eye Right retinal detachment 03/22/2025 7:35 AM GROUND WATER CONTRACTOR Scheduled Referrals Name Type Priority Associated Diagnoses Orde r Schedule AMB REFERRAL TO HOSPICE Outpatient Referral Routine Acute respiratory failure with hypoxia and hypercapnia (CMS/HCC) Centrilobular emphysema ([facility]) Ordered: 02/23/2025 documented as of this encounter Goals Goal Patient Goal Type Associated Problems Recent Progress Patient-Stated? Author Heart Failure Goal Care Plan Heart Failure Problem No Latonya Anguiano LPN Autogenerated Goal Care Plan Autogenerated Problem No Windy Dubois documented as of this encounter Procedures Procedure Name Priority Date/Time Associated Diagnosis Comments POC GLUCOSE Routine 02/23/2025 4:31 PM GROUND WATER CONTRACTOR Type 2 diabetes mellitus without complication, without long-term current use of insulin ([facility]) documented in this encounter Results * (ABNORMAL) POC GLUCOSE (02/23/2025 4:31 PM GROUND WATER CONTRACTOR) GLUCOSE POC 199(A) 65 - 99 mg/dL [facility] SPECIMEN SOURCE, GLUCOSE POC [facility] INTERNAL KIT QC POC Pass Pass [facility] KIT LOT NUMBER POC [phone] [facility] KIT EXP DATE POC 01/13/2026 [facility] Blood, capillary 02/23/2025 4:31 PM GROUND WATER CONTRACTOR us Marcia Claros MD POINT OF CARE TESTING Jana flores Result [facility] CLIA# [id number] [address] [place] [id number] documented in this encounter Visit Diagnoses Diagnosis Centrilobular emphysema (CMS/HCC)- Primary Other emphysema Acute respiratory failure with hypoxia and hypercapnia ([facility]) Type 2 diabetes mellitus without complication, without long-term current use of insulin ([facility]) Congestive heart failure, unspecified HF chronicity, unspecified heart failure type ([facility]) Paroxysmal atrial flutter ([facility]) Atrial flutter documented in this encounter Additional Health Concerns Active Problems Noted Date Diagnosed Date Heart Failure Problem 05/12/2024 Autogenerated Problem 01/25/2025 documented as of this encounter Care Teams Sushi Chef Relationship Specialty Start Date End Date Marcia Claros MD [address] [place] [phone] PCP - General Family Practice 02/23/25 documented as of this encounter
--- OUTSIDE RECORDS SUMMARY | 2025-02-26 15:52 | XMS_ITS | Encounter Summary ---
Author Organization [facility] Address [address] [place] [address] Care Team Providers Care Dormitory Keeper Name Role Phone Marcia Claros MD Primary Care Provider [phone] Reason for Visit * Reason Comments Shortness of Breath From home via POV w/ pt complains of abdominal pain and shortness of breath x1 hour. Pt SPO2 94% on 3L at triage desk. -N/V. -fevers. Abdominal Pain * Auth/Cert (Routine) Specialty Diagnoses / Procedures Referred By Marcelle smith Referred To Contact Emergency Medicine [facility] Emergency Department [address] [place] [id number] Phone: tel: fax: Referral ID Status Reason Start Date Expiration Date Visits Re quested Visits Authorized [id number] 1 1 Encounter Details Date Type Department Care Team (Late st Contact Info) Description 02/26/2025 3:52 PM COUNTER TOP MAKER - 02/26/2025 5:38 PM COUNTER TOP MAKER Emergency [facility] Emergency Department [address] [place] [phone] Delta Botello MD [address] [place] [address] [place] [phone] Other chronic pain (Primary Dx); Hospice care patient Discharge Disposition: Home or Self Care Social [...] often do you attend [facility] or [employer] services? More than 4 times [...] worry about transportation for future doctor visits, sweet pickled fruit maker medication, etc.? No 2024 Housing Stability Answer [...] on file Legal Sex Female 11:49 PM COUNTER TOP MAKER Gender Identity Not on file Sexual Orientation Not on file documented as of this encounter Last Filed Vital Signs Vital Sign Reading Time Taken Comments Blood Pressure 159/88 02/26/2025 5:30 PM COUNTER TOP MAKER Pulse 107 02/26/2025 5:30 PM COUNTER TOP MAKER Temperature 36.8 C (98.2 F) 02/26/2025 1:57 PM COUNTER TOP MAKER Respiratory Rate 20 02/26/2025 5:15 PM COUNTER TOP MAKER Oxygen Saturation 91% 02/26/2025 5:30 PM COUNTER TOP MAKER Inhaled Oxygen Concentration - - Weight 94.3 kg (208 lb) 02/26/2025 1:57 PM COUNTER TOP MAKER Height 165.1 cm (5' 5 ) 02/26/2025 1:57 PM COUNTER TOP MAKER Body Mass Index 34.61 02/26/2025 1:57 PM COUNTER TOP MAKER documented in this encounter Discharge Instructions * Discharge Instructions* Delta Botello MD - 02/26/2025 5:18 PM COUNTER TOP MAKER Follow-up with the new hospice team. TER TOP MAKER * Attachments The following attachments cannot be sent through Care Everywhere. * Hospice (Salvadorean) documented in this encounter Medications at Time of Discharge LORazepam (ATIVAN) 0.5 mg tablet TAKE 1 TABLET BY MOUTH TWICE DAILY FOR FOR ANXIETY 02/20/2025 promethazine (PHENERGAN) 25 mg tablet Take 25 mg by mouth every 6 hours as needed for Nausea. 01/28/2025 empagliflozin (JARDIANCE) 10 mg tabletIndications :Type 2 diabetes mellitus without complication, without long-term current use of insulin (CMS/HCC) Take 1 Tablet (10 mg) by mouth daily in the morning. 100 Tablet 3 02/23/2025 hydrOXYzine HCL (ATARAX) 25 mg tablet Take 1 Tablet (25 mg) by mouth every 6 hours as needed for Anxiety. 120 Tablet 5 02/23/2025 isosorbide mononitrate (IMDUR) 30 mg Extended Release 24 hour tabletIndications :Congestive heart failure, unspecified HF chronicity, unspecified heart failure type (CMS/HCC) Take 1 Tablet (30 mg) by mouth daily. 90 Tablet 3 02/23/2025 meclizine (ANTIVERT) 12.5 mg tablet Take 1 Tablet (12.5 mg) by mouth 3 times daily. 90 Tablet 5 02/23/2025 metoprolol succinate (TOPROL XL) 25 mg Extended Release 24 hour tablet Take 1 Tablet (25 mg) by mouth daily. 90 Tablet 3 02/23/2025 pantoprazole (PROTONIX) 40 mg Tablet, Delayed Release (E.C.) Take 1 Tablet (40 mg) by mouth daily before breakfast. 90 Tablet 3 02/23/2025 potassium CHLORIDE (KLOR-CON) 10 mEq Extended Release tablet Take 1 Tablet (10 mEq) by mouth 2 times daily with meals. 180 Tablet 3 02/23/2025 sacubitriL-valsar sahni (ENTRESTO) 24-26 mg TabletIndications :Congestive heart failure, unspecified HF chronicity, unspecified heart failure type (CMS/HCC) Take 1 Tablet by mouth 2 times daily. 180 Tablet 3 02/23/2025 amitriptyline (ELAVIL) 25 mg tablet Take 1 Tablet (25 mg) by mouth daily at bedtime. 90 Tablet 3 02/23/2025 insulin glargine (LANTUS) 100 unit/mL pen syringe Inject 45 Units by subcutaneous injection 2 times daily. 15 mL 3 02/23/2025 Insulin Williamson, Disposable, (Comfort EZ Pen Williamson) 31 gauge x 1/4 Needle Use with insulin pens as prescribed 100 Each 3 02/23/2025 apixaban (ELIQUIS) 5 mg tablet Take 1 Tablet (5 mg) by mouth 2 times daily. 60 Tablet 1 01/19/2025 ipratropium-albut Lisa (DUONEB) 0.5 mg-3 mg(2.5 mg base)/3 mL Solution for Nebulization Take 3 mL by inhalation every 4 hours as needed for Shortness of Breath. 300 mL 1 12/29/2024 albuterol sulfate HFA 90 mcg/actuation aerosol inhaler Take 2 Puffs by inhalation every 6 hours as needed for Shortness of Breath. 8.5 Gram 5 12/29/2024 levalbuterol (XOPENEX) 1.25 mg/3 mL Solution for Nebulization Take 3 mL (1.25 mg) by inhalation every 6 hours as needed for Shortness of Breath or Wheezing. 300 mL 3 12/19/2024 furosemide (LASIX) 80 mg tablet Take 1 Tablet (80 mg) by mouth 2 times daily. 60 Tablet 3 12/19/2024 sertraline (ZOLOFT) 50 mg tablet Take 50 mg by mouth daily. rOPINIRole (REQUIP) 0.5 mg tablet Take 0.5 mg by mouth daily at bedtime. acetaminophen (TYLENOL) 325 mg tablet Take 2 Tablets (650 mg) by mouth every 6 hours as needed for Pain, Mild / Temperature (.). 11/04/2024 HYDROcodone-aceta minophen (NORCO) 7.5-325 mg Tablet Take 1 Tablet by mouth every 8 hours as needed for Pain, Moderate or Pain, Severe. Nebulizer & Compressor For Neb Device every 4 hours as needed for Other (See Comment) (shortness of breath). 1 Each 09/10/2024 Ventolin HFA 90 mcg/actuation inhaler Take 2 Puffs by inhalation every 6 hours as needed. nitroglycerin (NITROSTAT) 0.4 mg Tablet, Sublingual Place 0.4 mg under tongue. 05/19/2024 aspirin (CARTER CHEWABLE) 81 mg Tablet, Chewable Take 81 mg by mouth daily. portable oxygenIndications :Chronic obstructive pulmonary disease, unspecified COPD type (CMS/HCC),Oxygen dependent Face to Face completed within 30 days: yes Length of Need: 99 months By: Nasal Cannula Continuously at 3 L/min. 1 Each 08/27/2023 naloxone (NARCAN) 4 mg/spray [place], Non-Aerosol EMERGENCY USE ONLY: Administer 1 spray (4 mg) in one nostril one time. May repeat in alternating nostrils every 2-3 min until responsive or EMS arrives. 2 Each 3 01/06/2023 blood sugar diagnostic StripIndications: Type 2 diabetes mellitus without complication, without long-term current use of insulin ([facility]) Use to test blood glucose up to QID PRN symptoms. 100 Each 11 12/17/2022 OneTouch Delica Plus Lancet 30 gauge USE TO test fasting blood glucose DAILY 11/04/2022 Blood-Glucose Meter KitIndications:Ty pe 2 diabetes mellitus without complication, without long-term current use of insulin ([facility]) Use to test blood glucose up to TID PRN symptoms. 1 Each 12/02/2022 documented as of this encounter Procedure Notes * Gayathri Johnson, PCT - 02/26/2025 4:36 PM CST VASCULAR ACCESS TEAM Peripheral IV insertion PATIENT NAME: Le Diaz DATE OF : 1965 [facility]: [id number] DATE: 02/26/2025 Room: Admit Date: 02/26/2025 Hospital day: LOS: 0 days Allergies: Allergies Allergen Reactions Ketorolac Tromethamine Hives Prochlorperazine Hives and Seizure Propoxyphene Nausea and Vomiting Tramadol Hives Codeine Itching Propoxyphene N-Acetaminophen Nausea and Vomiting VASCULAR ACCESS TEAM Peripheral IV insertion with lab collection PATIENT NAME: Le Diaz DATE OF : 1965 [facility]: [id number] DATE: 02/26/2025 Room: Admit Date: 02/26/2025 Hospital day: LOS: 0 days Allegries: Allergies [...] Secure port adhesive used Yes 1 attempts 60 minutes required to complete procedure Labs collected Yes Positive blood return noted Neutral pressure cap applied Catheter Flushed with 10ml of Normal Saline Transparent dressing applied with date, time and initials of cowoker inserting. LDA documentation is contained in EMR flowsheet Patient tolerated well. 1515 Staff requested IV wait due to patient being roomed. 1548 Patient upset due to remaining in waiting room. Patient stated she did not want an IV. Communicated the importance of lab collection. Labs Collected at this time. 1610 Patients boyfriend requested PIV to be placed. Patient agreeable. PIV placed at this time. MILES Flores TER TOP MAKER documented in this encounter ED Notes * Adelaida Forrest RN - 02/26/2025 4:45 PM CST Patient refusing nasal swab. Physician notified. TER TOP MAKER * Nicolle Vo NP - 02/26/2025 2:30 PM CST Images from the original note were not included. 59 y.o. female presents to ER today with a complaint of cough, congestion, nausea vomiting shortness of breath and chest pain. Onset of symptoms last night. Pt is pn hospice. She has increased work of breathing. Oxygen saturation 94% on 4 L. Significant medical history includes bipolar disorder, opioid dependence, diabetes, CAD, HTN, HLD, CHF, CKD atrial flutter IV, labs, chest x-ray, EKG were ordered at this time. Expand All Collapse All Vitals: Vitals: 02/26/25 1357 Pulse: (!) 107 Temp: 98.2 ??F (36.8 ??C) SpO2: 94% Exam: Constitutional: Alert and oriented with no [...] of what to expect during their stay. Pain 05/02 TER TOP MAKER * Meir Lipscomb - 02/26/2025 2:14 PM CST Attempted to obtain EKG but pt would not allow for the test to be done. Pt slumped in her chair and ignored questions if she was awake or not. When moved to do a sternal rub the pt yelled and stated that this tech and accompanying provider were being rude for sitting herback in her chair. Pt again refused to allow tech to do EKG. Pt moved back to waiting room by family while pt swearingat this tech. TER TOP MAKER * Pablo Morales FNP - 02/26/2025 1:59 PM CST Pt was evaluated in triage at 1:59 PM with complaint of cough, congestion, nausea vomiting. Pt is a 59 y.o. female who presented today with a complaint of cough, congestion, nausea vomiting shortness of breath. Onset of symptoms 2 hours ago. She has increased work of breathing. Oxygen saturation 94% on 4 L. Significant medical history includes bipolar disorder, opioid dependence, diabetes, CAD, HTN, HLD, CHF, CKD atrial flutter IV, labs, chest x-ray, EKG were ordered at this time. Vitals: Vitals: 02/26/25 1357 Pulse: (!) 107 Temp: 98.2 ??F (36.8 ??C) TempSrc: Temporal SpO2: 94% Weight: 94.3 kg (208 lb) Height: 5' 5 (1.651 m) Pain Scale: 9 Physical Exam: General appearance: Alert, in moderate distress Neck: supple, trachea midline Lungs: Increased [...] may have been created by an artificial nuclear equipment research engineer software. Effort has been done to assure accuracy of nuclear equipment research engineer. Any obvious errors or omissions should be clarified with the author of the document. RALEIGH Carmen TER TOP MAKER TER TOP MAKER * Delta Botello MD - 02/26/2025 1:50 PM CST Images from the original note were not included. Emergency Department Encounter Delta Botello MD 02/26/2025 Patient Name: Le Diaz : 1965 Medical Record: [id number] Chief Complaint Patient presents with Shortness of Breath From home via POV w/ pt complains of abdominal pain and shortness of breath x1 hour. Pt SPO2 94% on3L at triage desk. -N/V. -fevers. Abdominal Pain History Present Illness Le Diaz is a 59 y.o. female who has a history of liver failure congestive heart failure A-fib and DVT on Eliquis hypertension COPD on 3 to 4 L nasal cannula, CAD\stent who is a hospice patientpresenting to the ED today for evaluation of multiple chronic issues. She has chronic abdominal pain. And she has chronic shortness of breath. She has no chest pain. Occasional vomiting that is chronic. No fever no urinary complaints. It is unclear why she is here in the ER is a hospice patient.. 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 INSERT MIDLINE IV 10/31/2024 INSERT MIDLINE IV 12/10/2024 INSERT MIDLINE IV 01/04/2025 TX CATH PLMT L HRT & ARTS W/NJX & ANGIO IMG S&I N/A 03/21/2024 Left heart cath performed by Kyler Helm MD at [facility] INVASIVE CARDIOLOGY TX CATH PLMT L HRT & ARTS W/NJX & ANGIO IMG S&I N/A 03/21/2024 Left Ventriculogram performed by Klyer Helm MD at [facility] IN[facility]IOLOGY TX COLONOSCOPY FLX DX W/COLLJ SPEC WHEN PFRMD 01/23/2011 COLONOSCOPY performed by MACK BISWAS at [facility] ENDOSCOPY TX COLONOSCOPY FLX DX W/COLLJ SPEC WHEN PFRMD 09/19/2010 COLONOSCOPY performed by MACK BISWAS at [facility] ENDOSCOPY TX CORRECTION HAMMERTOE Left 07/20/2024 TOE(S) ARTHROPLASTY performed by Tereso Gil, DPM at [facility] OR TX EXPL PENETRATING WOUND SPX ABDOMEN/FLANK/BACK N/A 05/30/2023 LAPAROTOMY EXPLORATORY performed by Jose Cruz Montero DO at [facility] OR TX INJ SUBSTITUTE PARS PLANA/LIMBL W/WO ASPIR SPX Right 03/30/2024 EYE AIR FLUID GAS EXCHANGE performed by Eduardo Craven MD at [facility] TX RPR RPTD SPLEEN SPLENORRHAPHY W/WO PRTL SPLENECT N/A 05/30/2023 SPLENECTOMY performed by Jose Cruz Montero DO at [facility] OR TX VITRECTOMY [facility]NL PARS PLNA FOCAL ENDOLASER PC Right 03/30/2024 PARS PLANA VITRECTOMY WITH LASER performed by Eduardo Craven MD at [facility] Family History Family History Problem Relation [...] and does not use drugs. Home Medicines No current facility-administered medications for this encounter. Current Outpatient Medications: LORazepam (ATIVAN) 0.5 mg tablet, TAKE 1 TABLET BY MOUTH TWICE DAILY FOR FOR ANXIETY, Disp: , Rfl: promethazine (PHENERGAN) 25 mg tablet, Take 25 mg by mouth every 6 hours as needed for Nausea., Disp: , Rfl: empagliflozin (JARDIANCE) 10 mg tablet, Take 1 Tablet (10 mg) by mouth daily in the morning., Disp:100 Tablet, Rfl: 3 hydrOXYzine HCL (ATARAX) 25 mg tablet, Take 1 Tablet (25 mg) by mouth every 6 hours as needed for Anxiety., Disp: 120 Tablet, Rfl: 5 isosorbide mononitrate (IMDUR) 30 mg Extended Release 24 hour tablet, Take 1 Tablet (30 mg) by mouth daily., Disp: 90 Tablet, Rfl: 3 meclizine (ANTIVERT) 12.5 mg tablet, Take 1 Tablet (12.5 mg) by mouth 3 times daily., Disp: 90 Tablet, Rfl: 5 metoprolol succinate (TOPROL XL) 25 mg Extended Release 24 hour tablet, Take 1 Tablet (25 mg) by mouth daily., Disp: 90 Tablet, Rfl: 3 pantoprazole (PROTONIX) 40 mg Tablet, Delayed Release (E.C.), Take 1 Tablet (40 mg) by mouth daily before breakfast., Disp: 90 Tablet, Rfl: 3 potassium CHLORIDE (KLOR-CON) 10 mEq Extended Release tablet, Take 1 Tablet (10 mEq) by mouth 2 times daily with meals., Disp: 180 Tablet, Rfl: 3 sacubitriL-valsartan (ENTRESTO) 24-26 mg Tablet, Take 1 Tablet by mouth 2 times daily., Disp: 180 Tablet, Rfl: 3 amitriptyline (ELAVIL) 25 mg tablet, Take 1 Tablet (25 mg) by mouth daily at bedtime., Disp: 90 Tablet, Rfl: 3 insulin glargine (LANTUS) 100 unit/mL pen syringe, Inject 45 Units by subcutaneous injection 2 times daily., Disp: 15 mL, Rfl: 3 Insulin Williamson, Disposable, (Comfort EZ Pen Williamson) 31 gauge x 1/4 Needle, Use with insulin pensas prescribed, Disp: 100 Each, Rfl: 3 apixaban (ELIQUIS) 5 mg tablet, Take 1 Tablet (5 mg) by mouth 2 times daily., Disp: 60 Tablet, Rfl:1 ipratropium-albuteroL (DUONEB) 0.5 mg-3 mg(2.5 mg base)/3 mL Solution for Nebulization, Take 3 mL by inhalation every 4 hours as needed for Shortness of Breath., Disp: 300 mL, Rfl: 1 albuterol sulfate HFA 90 mcg/actuation aerosol inhaler, Take 2 Puffs by inhalation every 6 hours asneeded for Shortness of Breath., Disp: 8.5 Gram, Rfl: 5 levalbuterol (XOPENEX) 1.25 mg/3 mL Solution for Nebulization, Take 3 mL (1.25 mg) by inhalation every 6 hours as needed for Shortness of Breath or Wheezing., Disp: 300 mL, Rfl: 3 furosemide (LASIX) 80 mg tablet, Take 1 Tablet (80 mg) by mouth 2 times daily., Disp: 60 Tablet, Rfl: 3 sertraline (ZOLOFT) 50 mg tablet, Take 50 mg by mouth daily., Disp: , Rfl: rOPINIRole (REQUIP) 0.5 mg tablet, Take 0.5 mg by mouth daily at bedtime., Disp: , Rfl: acetaminophen (TYLENOL) 325 mg tablet, Take 2 Tablets (650 mg) by mouth every 6 hours as needed forPain, Mild / Temperature (.)., Disp: , Rfl: HYDROcodone-acetaminophen (NORCO) 7.5-325 mg Tablet, Take 1 Tablet by mouth every 8 hours as neededfor Pain, Moderate or Pain, Severe., Disp: , Rfl: Nebulizer & Compressor For Neb Device, every 4 hours as needed for Other (See Comment) (shortness of breath)., Disp: 1 Each, Rfl: 0 Ventolin HFA 90 mcg/actuation inhaler, Take 2 Puffs by inhalation every 6 hours as needed., Disp: ,Rfl: nitroglycerin (NITROSTAT) 0.4 mg Tablet, Sublingual, Place 0.4 mg under tongue., Disp: , Rfl: aspirin (CARTER CHEWABLE) 81 mg Tablet, Chewable, Take 81 mg by mouth daily., Disp: , Rfl: portable oxygen, Face to Face completed within 30 days: yes Length of Need: 99 months By: Nasal Cannula Continuously at 3 L/min., Disp: 1 Each, Rfl: 0 naloxone (NARCAN) 4 mg/spray [place], Non-Aerosol, EMERGENCY USE ONLY: Administer 1 spray [...] Vomiting Physical Exam Vital signs: BP: (!) 140/78 (02/26/25 1709), Heart Rate: (!) 107 bpm (02/26/25 135), Resp: (not recorded), Temp: 98.2 ??F (36.8 ??C) (02/26/25 135), Temp src: Temporal (unable to do axillary or temporal as pt will not refrain from moving arms or eating ice by the handfulls.) (02/26/25 135), SpO2: 94 % (02/26/25 135), Height: 5' 5 (165.1 cm) (02/26/251356), Weight: 94.3 kg (208 lb) (), BMI (Calculated): (!) 34.6 (02/26/251356) BP: (!) 140/78 (02/26/251708), Heart Rate: (!) 107 bpm (02/26/251356), Resp: (not recorded), Temp: 98.2 ??F (36.8 ??C) (02/26/251356), Temp src: Temporal (unable to do axillary or temporal as pt will not refrain from moving arms or eating ice by the handfulls.) (02/26/251356), SpO2: 94 % (02/26/251708) General: Alert & oriented x 3, well hydrated, no distress, speaking full sentences on RA HEENT: Atraumatic, normocephalic, normal conjuctiva, non-icteric sclera, [...] grossly symmetrical movement of bilateral UE/LE Extremities: No clubbing/cyanosis/edema, No deformities, joints non-tender with no swelling, +2 distal pulses equal bilaterally UE/LE Skin: No rash, No petechia/purpura, capillary refill <2 sec, warm and dry Psych: Appropriate mood/affect, judgement intact Labs All Labs this visit reveiwed Results for orders placed or performed during the hospital encounter of 02/26/25 CBC WITH DIFFERENTIAL Result Value Ref Range WBC 6.3 4.8 - 10.8 K/uL NRBCS 2 (H) <1 % RBC 4.07 (L) 4.20 - 5.40 M/uL HEMOGLOBIN 11.2 (L) 12.0 - 16.0 g/dL HEMATOCRIT 37.7 36.0 - 46.0 % MCV 92.6 84.0 - 103.0 fL MCH 27.5 27.0 - 34.0 pg MCHC 29.7 (L) 30.0 - 35.0 g/dL PLATELETS 166 140 - 440 K/uL MPV 12.3 8.9 - 12.8 fL RDW 19.4 (H) 11.0 - 14.5 % RDW-STDEV 65.0 (H) 37.0 - 54.0 fL NEUTROPHILS 44 42 - 75 % LYMPHOCYTES 40 24 - 44 % MONOCYTES 14 (H) 2 - 10 % EOSINOPHILS 1 0 - 7 % BASOPHILS 1 0 - 1 % IMMATURE GRANULOCYTES 0 0 - 2 % NEUTROPHIL ABSOLUTE 2.79 2.00 - 8.00 K/uL LYMPHOCYTE ABSOLUTE 2.51 1.20 - 4.00 K/uL MONOCYTE ABSOLUTE 0.91 (H) 0.10 - 0.60 K/uL EOSINOPHIL ABSOLUTE 0.06 0.00 - 0.70 K/uL BASOPHILS ABSOLUTE 0.03 0.00 - 0.20 K/uL IMMATURE GRANULOCYTES ABSOLUTE 0.02 0.00 - 0.10 K/uL SMEAR REVIEWED: NN - No Action Needed COMPREHENSIVE METABOLIC PANEL Result Value Ref Range SODIUM 142 136 - 145 mmol/L POTASSIUM 4.3 3.5 - 5.1 mmol/L CHLORIDE 106 98 - 107 mmol/L CO2 22 22 - 29 mmol/L CALCIUM 9.5 8.6 - 10.0 mg/dL BUN 14 6 - 20 mg/dL CREATININE 0.49 (L) 0.51 - 0.95 mg/dL GLUCOSE 165 (H) 74 - 99 mg/dL TOTAL PROTEIN 7.1 6.4 - 8.3 g/dL ALBUMIN 3.5 3.5 - 5.2 g/dL BILIRUBIN TOTAL 0.2 0.0 - 1.0 mg/dL ALKALINE PHOSPHATASE 108 (H) 35 - 104 U/L AST 27 10 - 35 U/L ALT 15 <=35 U/L GFR >60 >=60 mL/min/1.73 sq meter ANION GAP 14 9 - 20 mmol/L BRAIN NATRIURETIC PEPTIDE, BNP OR PROBNP Result Value Ref Range PROBNP, N TERMINAL 570 (H) 0 - 125 pg/mL TROPONIN BASELINE, 5TH GEN Result Value Ref Range TROPONIN T, BASELINE 5TH GEN 21 (H) <=10 ng/L LIPASE Result Value Ref Range LIPASE 24 13 - 60 U/L Biomedical Analytical Scientist Sinus tachycardia 100 - 105 EKG Sinus tachycardia 102 normal axis, intervals, R progression. No hypertrophy. No ST changes. No T wave changes Radiology All films this visit reviewed XR CHEST PA OR AP 1 VW Radiologist Impression IMPRESSION: Please see below. Exam: XR CHEST PA OR AP 1 VW Date/Time of Exam: 02/26/2025 3:04 PM Reason For Exam: Shortness of Breath SOB. Diagnosis: See Reason for Exam. Comparison: 01/21/2025. Findings: Poor inspiratory effort with resultant bronchovascular crowding. The cardiomediastinal silhouette is upper limits of normal in size to mildly enlarged with a component likely AP magnified. Bibasilar linear scar versus platelike atelectasis. No consolidative airspace disease, pleural effusion, or pneumothorax. Diffuse osteopenia is present. ACDF lower cervical spine. Impression: 1. As above. Procedures None ED Course & Medical Decision Making Patient with chronic issues no acute processes here. Workup benign. Is a hospice patient in between2 hospice companies. It turns out she fired her hospice company today and is getting a new one tomorrow. Medications morphine 4 mg/mL injection 4 mg (4 mg IV Given 02/26/251708) ondansetron (ZOFRAN) 4 mg/2 mL injection 4 mg (4 mg IV Given 02/26/251708) Critical Care Time None Clinical Impression ICD-10-CM ICD-9-CM 1. Other chronic pain G89.29 338.29 2. Hospice care patient Z51.5 V66.7 Rx Medication List CONTINUE taking these medications acetaminophen 325 mg tablet Commonly known as: TYLENOL Take 2 Tablets (650 mg) by mouth every 6 hours as needed for Pain, Mild / Temperature (.). Signed by: Dr. Ofelia Lee Refills: 0 amitriptyline 25 mg tablet Commonly known as: ELAVIL Take 1 Tablet (25 mg) by mouth daily at bedtime. Signed by: Dr. Camilo Claros Quantity: 90 Tablet Refills: 3 apixaban 5 mg tablet Commonly known as: ELIQUIS Take 1 Tablet (5 mg) by mouth 2 times daily. Signed by: Dr. Abdirahman Cortes Quantity: 60 Tablet Refills: 1 aspirin 81 mg Tablet, Chewable Commonly known as: CARTER CHEWABLE Take 81 mg by mouth daily. Refills: 0 blood sugar diagnostic Strip Use [...] daily in the morning. Signed by: Dr. Camilo Claros Quantity: 100 Tablet Refills: 3 furosemide 80 mg tablet Commonly known as: LASIX Take 1 Tablet (80 mg) by mouth 2 times daily. Signed by: Dr. Juliette Romano Quantity: 60 Tablet Refills: 3 HYDROcodone-acetaminophen 7.5-325 mg Tablet Commonly known as: NORCO Take 1 Tablet by mouth every 8 hours as needed for Pain, Moderate or Pain, Severe. Refills: 0 hydrOXYzine HCL 25 mg tablet Commonly known as: ATARAX Take 1 Tablet (25 mg) by mouth every 6 hours as needed for Anxiety. Signed by: Dr. Camilo Claros Quantity: 120 Tablet Refills: 5 insulin glargine 100 unit/mL pen syringe Commonly known as: LANTUS Inject 45 Units by subcutaneous injection 2 times daily. Signed by: Dr. Camilo Claros Quantity: 15 mL Refills: 3 Insulin Williamson (Disposable) 31 gauge x 1/4 Needle Commonly known as: Comfort EZ Pen Williamson Use with insulin pens as prescribed Signed by: Dr. Camilo Claros Quantity: 100 Each Refills: 3 ipratropium-albuteroL 0.5 mg-3 mg(2.5 mg base)/3 mL Solution for Nebulization Commonly known as: DUONEB Take 3 mL by inhalation every 4 hours as needed for Shortness of Breath. Signed by: Dr. Juliette Cho Quantity: 300 mL Refills: 1 isosorbide mononitrate 30 mg Extended Release 24 hour tablet Commonly known as: IMDUR Take 1 Tablet (30 mg) by mouth daily. Signed by: Dr. Camilo Claros Quantity: 90 Tablet Refills: 3 levalbuterol 1.25 mg/3 mL Solution for Nebulization Commonly known as: XOPENEX Take 3 mL (1.25 mg) by inhalation every 6 hours as needed for Shortness of Breath or Wheezing. Signed by: Dr. R Nerella Quantity: 300 mL Refills: 3 LORazepam 0.5 mg tablet Commonly known as: ATIVAN TAKE 1 TABLET BY MOUTH TWICE DAILY FOR FOR ANXIETY Refills: 0 meclizine 12.5 mg tablet Commonly known as: ANTIVERT Take 1 Tablet (12.5 mg) by mouth 3 times daily. Signed by: Dr. Camilo Claros Quantity: 90 Tablet Refills: 5 metoprolol succinate 25 mg Extended Release 24 hour tablet Commonly known as: TOPROL XL Take 1 Tablet (25 mg) by mouth daily. Signed by: Dr. Camilo Claros Quantity: 90 Tablet Refills: 3 naloxone 4 mg/spray [place], Non-Aerosol Commonly known as: NARCAN EMERGENCY USE [...] Place 0.4 mg under tongue. Refills: 0 OneTouch Delica Plus Lancet 30 gauge USE TO test fasting blood glucose DAILY Refills: 0 Generic drug: lancets pantoprazole 40 mg Tablet, Delayed Release (E.C.) Commonly known as: PROTONIX Take 1 Tablet (40 mg) by mouth daily before breakfast. Signed by: Dr. Camilo Claros Quantity: 90 Tablet Refills: 3 portable oxygen Face to Face completed within 30 days: yes Length of Need: 99 months By: Nasal Cannula Continuously at 3 L/min. Signed by: Dr. Myron Burk Quantity: 1 Each Refills: 0 potassium CHLORIDE 10 mEq Extended Release tablet Commonly known as: KLOR-CON Take 1 Tablet (10 mEq) by mouth 2 times daily with meals. Signed by: Dr. Camilo Claros Quantity: 180 Tablet Refills: 3 promethazine 25 mg tablet Commonly known as: PHENERGAN Take 25 mg by mouth every 6 hours as needed for Nausea. Refills: 0 rOPINIRole 0.5 mg tablet Commonly known as: REQUIP Take 0.5 mg by mouth daily at bedtime. Refills: 0 sacubitriL-valsartan 24-26 mg Tablet Commonly known as: ENTRESTO Take 1 Tablet by mouth 2 times daily. Signed by: Dr. Camilo Claros Quantity: 180 Tablet Refills: 3 sertraline 50 mg tablet Commonly known as: ZOLOFT Take 50 mg by mouth daily. Refills: 0 * Ventolin HFA 90 mcg/actuation inhaler Take 2 Puffs by inhalation every 6 hours as needed. Refills: 0 Generic drug: albuterol sulfate * albuterol sulfate 90 mcg/Actuation inhaler Take 2 Puffs by inhalation every 6 hours as needed for Shortness of Breath. Signed by: Dr. Juliette Cho Quantity: 8.5 Gram Refills: 5 * !!Potential duplicate medications found. Review medication list carefully. Discharge Instructions Make appointments to follow up as soon as possible with your PCP and with the following doctors: Marcia Claros MD [address] [place] [phone] Schedule an appointment as soon as possible for a visit @[email or web address]@ Delta Botello MD TER TOP MAKER documented in this encounter Miscellaneous Notes * Gen AI QI - GENERATIVE AI HANDOFF NOTE - 02/26/2025 6:31 PM CST ## ER_course: ## # DIAGNOSIS: Chronic pain and hospice care management. The patient, Le Diaz, a 59-year-old female, presented to the ER with complaints of cough, congestion, nausea, vomiting, shortness of breath, and chest pain. Symptoms began the previous night. She is a hospice patient with a significant medical history including bipolar disorder, opioid dependence, diabetes, coronary artery disease (CAD), hypertension (HTN), hyperlipidemia (HLD), congestive heart failure (CHF), chronic kidney disease (CKD), and atrial flutter. # During the ER visit, the following abnormalities were noted: - Oxygen saturation was 94% on 4L of oxygen. - Pulse was elevated at 107 bpm. - Lab results showed elevated PROBNP at 570 pg/mL, elevated Troponin T at 21 ng/L, and elevated glucose at 165 mg/dL. - Chest X-ray indicated poor inspiratory effort with bronchovascular crowding and bibasilar linear scar versus platelike atelectasis. - EKG showed sinus tachycardia with a rate of 102 bpm. # Medications administered during the ER visit included morphine 4 mg IV and ondansetron (Zofran) 4 mg IV. 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 ## Follow_up_orders: ## # The patient is advised to follow up with her primary care provider (PCP) and Dr. Marcia Claros as soon as possible. # No new prescriptions or changes to home medications were noted in the ER course. # The patient is to continue her current medications, including those for anxiety, pain, diabetes, and heart conditions. ## Home_Situation: ## # The patient is a hospice care patient and is currently transitioning between hospice care providers. There is no mention of transportation, caregiver support, or financial issues in the ER notes. TER TOP MAKER * ED Bed Hold Comment Note - Dedra Galan RN - 02/26/2025 3:52 PM COUNTER TOP MAKER Bed: 22 Expected date: 02/26/25 Expected time: 3:52 PM Means of arrival: Comments: TRIAGE TER TOP MAKER documented in this encounter Plan of Treatment Upcoming Encounters Date Type Department Care Team (Latest Contact Info) Description 03/22/2025 10:30 AM COUNTER TOP MAKER Hospital Encounter [facility] [address] [place] [phone] Kumar Ochoa MD [address] [facility] [address] [place] [phone] Combined forms of age-related cataract of right eye 08/24/2025 2:20 PM CDT Office Visit [facility] [place] [address] [phone] Marcia Claros MD [address] [phone] Pending Results Name Type Priority Associated Diagnoses Date /Time EKG 12-LEAD ECG Stat 02/26/2025 4: 13 PM COUNTER TOP MAKER Scheduled Procedures Name Priority Associated Diagnoses Date/Ti me CATARACT EXTRACTION IOL INSERTION FEMTO LASER ASSISTED LEVEL 1 Combined forms of age-related cataract of right eye Right retinal detachment 03/22/2025 7:35 AM COUNTER TOP MAKER PARS PLANA VITRECTOMY WITH LASER Combined forms of age-related cataract of right eye Right retinal detachment 03/22/2025 7:35 AM COUNTER TOP MAKER EYE PLACEMENT OF SILICONE OIL Combined forms of age-related cataract of right eye Right retinal detachment 03/22/2025 7:35 AM COUNTER TOP MAKER documented as of this encounter Goals Goal Patient Goal Type Associated Problems Recent Progress Patient-Stated? Author Heart Failure Goal Care Plan Heart Failure Problem No Latonya Anguiano LPN Autogenerated Goal Care Plan Autogenerated Problem No Windy Dubois documented as of this encounter Procedures Procedure Name Priority Date/Time Associated Diagnosis Comments EKG 12-LEAD Stat 02/26/2025 4:13 PM COUNTER TOP MAKER Procedure Note - 02/26/2025 4:13 PM CSTThis note is in progress. [address] [id number] Test Date: 2025-02-26 Pat Name: LE DIAZ Department: 11 Room: Gender: Female Physical Chemist: [id number] : 1965 Requested By: Order Number: [id number] Reading MD: Measurements Intervals [place] Rate: 102 P: 258 TX: 150 QRS: 72 QRSD: 86 T: -23 QT: 354 QTc: 461 Interpretive Statements Unusual P axis, possible ectopic atrial tachycardia Cannot rule out Anterior infarct, age undetermined Abnormal ECG TROPONIN BASELINE, 5TH GEN Stat 02/26/2025 3:52 PM COUNTER TOP MAKER CBC WITH DIFFERENTIAL Stat 02/26/2025 3:52 PM COUNTER TOP MAKER BRAIN NATRIURETIC PEPTIDE, BNP OR PROBNP Stat 02/26/2025 3:52 PM COUNTER TOP MAKER LIPASE Stat 02/26/2025 3:52 PM COUNTER TOP MAKER COMPREHENSIVE METABOLIC PANEL Stat 02/26/2025 3:52 PM COUNTER TOP MAKER XR CHEST PA OR AP 1 VW Stat 02/26/2025 3:04 PM COUNTER TOP MAKER documented in this encounter Results * LIPASE (02/26/2025 3:52 PM COUNTER TOP MAKER) [facility] LIPASE 24 13 - 60 U/L 02/26/2025 4:58 PM COUNTER TOP MAKER [facility] Blood Venipuncture / Unknown 02/26/2025 3:52 PM COUNTER TOP MAKER 02/26/2025 4:05 PM COUNTER TOP MAKER Delta Botello MD CHEMISTRY ORDERABLES Final R esult Performing Organization Address [facility]/ZIP Co de Phone Number [facility] CLIA # [id number] [address] [address] * (ABNORMAL) TROPONIN BASELINE, 5TH GEN (02/26/2025 3:52 PM COUNTER TOP MAKER) [facility] TROPONIN T, BASELINE 5TH GEN 21(H) <=10 ng/L 02/26/2025 4:58 PM COUNTER TOP MAKER [facility] Blood Venipuncture / Unknown 02/26/2025 3:52 PM COUNTER TOP MAKER 02/26/2025 4:05 PM COUNTER TOP MAKER Narrative [facility] - 02/26/2025 4:58 PM COUNTER TOP MAKER Troponin elevated. us Nicolle Vo NP CHEMISTRY ORDERABLES Fi nal Result Performing Organization Address City/[facility]/ZIP Co de Phone Number [facility] CLIA # [id number] [address] [address] * (ABNORMAL) BRAIN NATRIURETIC PEPTIDE, BNP OR PROBNP (02/26/2025 3:52 PM COUNTER TOP MAKER) [facility] PROBNP, N TERMINAL 570(H) 0 - 125 pg/mL 02/26/2025 4:58 PM COUNTER TOP MAKER [facility] Comment: INTERPRETIVE COMMENT based on diagnosis: [...] years: >1800 pg/mL Blood Venipuncture / Unknown 02/26/2025 3:52 PM COUNTER TOP MAKER 02/26/2025 4:05 PM COUNTER TOP MAKER Nicolle Vo DIESEL LOCOMOTIVE FIRER/FIREMAN CHEMISTRY ORDERABLES Fi nal Result [facility] CLIA # [id number] [address] [place] [id number] * (ABNORMAL) COMPREHENSIVE METABOLIC PANEL (02/26/2025 3:52 PM COUNTER TOP MAKER) [facility] SODIUM 142 136 - 145 mmol/L 02/26/2025 4:58 PM [facility] POTASSIUM 4.3 3.5 - 5.1 mmol/L 02/26/2025 4:58 PM [facility] Comment:Slightly hemolyzed. Result may be falsely elevated. CHLORIDE 106 98 - 107 mmol/L 02/26/2025 4:58 PM [facility] CO2 22 22 - 29 mmol/L 02/26/2025 4:58 PM [facility] CALCIUM 9.5 8.6 - 10.0 mg/dL 02/26/2025 4:58 PM [facility] BUN 14 6 - 20 mg/dL 02/26/2025 4:58 PM [facility] CREATININE 0.49(L) 0.51 - 0.95 mg/dL 02/26/2025 4:58 PM [facility] GLUCOSE 165(H) 74 - 99 mg/dL 02/26/2025 4:58 PM [facility] TOTAL PROTEIN 7.1 6.4 - 8.3 g/dL 02/26/2025 4:58 PM [facility] ALBUMIN 3.5 3.5 - 5.2 g/dL 02/26/2025 4:58 PM [facility] BILIRUBIN TOTAL 0.2 0.0 - 1.0 mg/dL 02/26/2025 4:58 PM [facility] ALKALINE PHOSPHATASE 108(H) 35 - 104 U/L 02/26/2025 4:58 PM [facility] AST 27 10 - 35 U/L 02/26/2025 4:58 PM [facility] Comment:Hemolysis present. R esult may be falsely elevated. ALT 15 <=35 U/L 02/26/2025 4:58 PM [facility] GFR >60 >=60 mL/min/1. 73 sq meter 02/26/2025 4:58 PM [facility] Comment:eGFR calculated with 2020 CKD-EPI equation. Vegetarian diet, extremely high or low muscle mass, and may affect results. Cystatin C with Glomerular Filtration Rate is a suitable alternative for these patients. ANION GAP 14 9 - 20 mmol/L 02/26/2025 4:58 PM [facility] Blood Venipuncture / Unknown 02/26/2025 3:52 PM COUNTER TOP MAKER 02/26/2025 4:05 PM COUNTER TOP MAKER us Nicolle Vo NP CHEMISTRY ORDERABLES Fi nal Result [facility] CLIA # [id number] [address] [place] [address] * (ABNORMAL) CBC WITH DIFFERENTIAL (02/26/2025 3:52 PM [facility] [email or web address] WBC 6.3 4.8 - 10.8 K/uL 02/26/2025 4:09 PM [facility] NRBCS 2(H) <1 % 02/26/2025 4:09 PM [facility] RBC 4.07(L) 4.20 - 5.40 M/uL 02/26/2025 4:09 PM [facility] HEMOGLOBIN 11.2(L) 12.0 - 16.0 g/dL 02/26/2025 4:09 PM [facility] HEMATOCRIT 37.7 36.0 - 46.0 % 02/26/2025 4:09 PM [facility] MCV 92.6 84.0 - 103.0 fL 02/26/2025 4:09 PM [facility] MCH 27.5 27.0 - 34.0 pg 02/26/2025 4:09 PM [facility] MCHC 29.7(L) 30.0 - 35.0 g/dL 02/26/2025 4:09 PM [facility] PLATELETS 166 140 - 440 K/uL 02/26/2025 4:09 PM [facility] MPV 12.3 8.9 - 12.8 fL 02/26/2025 4:09 PM [facility] RDW 19.4(H) 11.0 - 14.5 % 02/26/2025 4:09 PM [facility] RDW-STDEV 65.0(H) 37.0 - 54.0 fL 02/26/2025 4:09 PM [facility] NEUTROPHILS 44 42 - 75 % 02/26/2025 4:09 PM [facility] LYMPHOCYTES 40 24 - 44 % 02/26/2025 4:09 PM [facility] MONOCYTES 14(H) 2 - 10 % 02/26/2025 4:09 PM [facility] EOSINOPHILS 1 0 - 7 % 02/26/2025 4:09 PM [facility] BASOPHILS 1 0 - 1 % 02/26/2025 4:09 PM [facility] IMMATURE GRANULOCYTES 0 0 - 2 % 02/26/2025 4:09 PM [facility] NEUTROPHIL ABSOLUTE 2.79 2.00 - 8.00 K/uL 02/26/2025 4:09 PM [facility] LYMPHOCYTE ABSOLUTE 2.51 1.20 - 4.00 K/uL 02/26/2025 4:09 PM [facility] MONOCYTE ABSOLUTE 0.91(H) 0.10 - 0.60 K/uL 02/26/2025 4:09 PM [facility] EOSINOPHIL ABSOLUTE 0.06 0.00 - 0.70 K/uL 02/26/2025 4:09 PM [facility] BASOPHILS ABSOLUTE 0.03 0.00 - 0.20 K/uL 02/26/2025 4:09 PM [facility] IMMATURE GRANULOCYTES ABSOLUTE 0.02 0.00 - 0.10 K/uL 02/26/2025 4:09 PM [facility] SMEAR REVIEWED: NN - No Action Needed 02/26/2025 4:09 PM [facility] Blood Venipuncture / Unknown 02/26/2025 3:52 PM COUNTER TOP MAKER 02/26/2025 4:03 PM COUNTER TOP MAKER us Nicolle Vo NP HEMATOLOGY ORDERABLES F inal Result [facility] CLIA # [id number] [address] [address] [place] [address] * XR CHEST PA OR AP 1 VW (02/26/2025 3:04 PM COUNTER TOP MAKER) Anatomical Region Laterality Modality Chest Computed Radiogr aphy 02/26/2025 3:05 PM COUNTER TOP MAKER Impressions 02/26/2025 3:19 PM COUNTER TOP MAKER IMPRESSION: Please see below. Exam: XR CHEST PA OR AP 1 VW Date/Time of Exam: 02/26/2025 3:04 PM Reason For Exam: Shortness of Breath SOB. Diagnosis: See Reason for Exam. Comparison: 01/21/2025. Findings: Poor inspiratory effort with resultant bronchovascular crowding. The cardiomediastinal silhouette is upper limits of normal in size to mildly enlarged with a component likely AP magnified. Bibasilar linear scar versus platelike atelectasis. No consolidative airspace disease, pleural effusion, or pneumothorax. Diffuse osteopenia is present. ACDF lower cervical spine. Impression: 1. As above. Narrative Procedure Note Eunice Oro MD - 02/26/2025 IMPRESSION: Please see below. Exam: XR CHEST PA OR AP 1 VW Date/Time of Exam: 02/26/2025 3:04 PM Reason For Exam: Shortness of Breath SOB. Diagnosis: See Reason for Exam. Comparison: 01/21/2025. Findings: Poor inspiratory effort with resultant bronchovascular crowding. The cardiomediastinal silhouette is upper limits of normal in size to mildly enlarged with a component likely AP magnified. Bibasilar linear scar versus platelike atelectasis. No consolidative airspace disease, pleural effusion, or pneumothorax. Diffuse osteopenia is present. ACDF lower cervical spine. Impression: 1. As above. Nicolle Vo NP DIAGNOSTIC IMAGING ORDRoman STUART Final Result documented in this encounter Visit Diagnoses Diagnosis Other chronic pain- Primary Hospice care patient Encounter for palliative care documented in this encounter Administered Medications Inactive Administered Medications - up to 3 most recent administrations Medication Order MAR Action Action Date Dose Rate Site morphine 4 mg/mL injection 4 mg 4 mg, IV, ONE TIME ONLY, 1 dose, On 02/26/25 at 1630, Routine Given 02/26/2025 5:09 PM COUNTER TOP MAKER 4 mg ondansetron (ZOFRAN) 4 mg/2 mL injection 4 mg 4 mg, IV, ONE TIME ONLY, 1 dose, On 02/26/25 at 1630, Routine Given 02/26/2025 5:09 PM COUNTER TOP MAKER 4 mg documented in this encounter Active and Recently Administered Medications Times are shown in COUNTER TOP MAKER. Scheduled Medication Order 02/24/2025 02/25/2025 02/26/2025 morphine 4 mg/mL injection 4 mg (COMPLETED) 4 mg, IV, ONE TIME ONLY, 1 dose, On 02/26/25 at 1630, Routine 1709 (Given - Provid er: Renetta Mendez RN) ondansetron (ZOFRAN) 4 mg/2 mL injection 4 mg (COMPLETED) 4 mg, IV, ONE TIME ONLY, 1 dose, On 02/26/25 at 1630, Routine 1709 (Given - Provid er: Renetta Mendez RN) documented in this encounter Additional Health Concerns Active Problems Noted Date Diagnosed Date Heart Failure Problem 05/12/2024 Autogenerated Problem 01/25/2025 Infection Onset Date Last Indicated Resolved Time R/O COVID-19 02/26/2025 02/26/2025 02/26/2025 5:18 PM COUNTER TOP MAKER documented as of this encounter Care Teams Dormitory Keeper Relationship Specialty Start Date End Date Marcia Claros MD [address] [place] [phone] PCP - General Family Practice 02/23/25 documented as of this encounter
[2025-02-27] VITALS (8 sets, daily range): BP systolic 118–135; BP diastolic 60–88; PULSE 96–109; RESP 18–24; TEMP 36.6; O2SAT 95–98; BMI 35.9
--- OUTSIDE RECORDS SUMMARY | 2025-02-27 04:01 | XMS_ITS ---
Author Organization [facility] Address [address] [place] [address] Phone Care Team Providers Care Medical Physics Professor Name Role Phone Marcia Claros MD Primary Care Provider [phone]- [phone] Active Problems Problem Noted Date Diagnosed Date [...] H/O vaginal surgery 06/14/2019 Atherosclerosis of [place] co ronary artery of [place] heart without angina pectoris 06/14/2019 Former smoker [...]
--- OUTSIDE RECORDS SUMMARY | 2025-02-27 04:01 | XMS_ITS | CCD ---
Author Name Interface, [id number] Address [address] [facility] [place] [address] [facility] Address [address] [place] [address] Care Team Providers Care Butadiene Converter Operator Name Role Phone Anika VALLADARES, Allen [...]
--- OUTSIDE RECORDS SUMMARY | 2025-02-27 04:02 | XMS_ITS | Clinical Summary ---
Author Organization [facility] Address [address] [place] [address] Phone Care Team Providers Care Endoscopic Technician Name Role Phone Marcia Claros MD Primary Care Provider [phone] Allergies Active Allergy Reactions Criticality Noted Date [...] current use of insulin ([facility]) Use to test blood glucose up to TID PRN symptoms. 1 Each 023 Active blood sugar diagnostic StripIndication s:Type 2 diabetes mellitus without complication, without long-term current use of insulin ([facility]) Use to test blood glucose up to QID PRN symptoms. 100 Each 11 023 Active naloxone (NARCAN) 4 mg/spray [place], Non-Aerosol EMERGENCY USE ONLY: Administer 1 spray [...] times daily. 15 mL 3 Active Insulin Barnum, Disposable, (Comfort EZ Pen Barnum) 31 gauge x 1/4 Needle Use with [...] of rincon heart without angina pectoris 06/14/2019 Former smoker [...] Encounters Date Type Department Care Team Description 02/26/2025 3:52 PM RETURNS CLERK - 02/26/2025 5:38 PM RETURNS CLERK Emergency [facility] Emergency Department [address] [place] [phone] Delta Botello MD Other chronic pain (Primary Dx); Hospice care patient Discharge Disposition: Home or Self Care 02/26/2025 Travel 02/23/2025 4:00 PM RETURNS CLERK Office Visit [address] [phone] Marcia Claros MD Centrilobular emphysema (CMS/HCC) (Primary Dx); Acute respiratory failure with hypoxia and hypercapnia (CMS/HCC); Type 2 diabetes mellitus without complication, without long-term current use of insulin (CMS/HCC); Congestive heart failure, unspecified HF chronicity, unspecified heart failure type (CMS/HCC); Paroxysmal atrial flutter (CMS/HCC) 02/22/2025 Telephone [facility] [address] [facility] [address] [place] [phone] Ryann Burk MD Wants Appointment 02/20/2025 Telephone [facility]hthal[facility] [place] [address] [facility] [address] [place] [phone] Kumar Ochoa MD Surgery Talk (Called patient and discussed rescheduling her surgery combo to a later date; patient became upset, used profanity, and then hung up.) 01/23/2025 Travel 01/21/2025 5:49 PM CDT - 01/21/2025 10:28 PM CDT Emergency [facility] Emergency Department [address] [place] [address] Kay Naranjo MD Shortness of breath (Primary Dx) Discharge Disposition: Home or Self Care 01/17/2025 9:48 PM CDT - 01/19/2025 11:29 AM CDT Hospital Encounter [facility] Medical Telemetry [address] [place] [address] Dave Cline MD Sundaram, Vignesh, MD Allam, Bala Sudhakar Reddy, MD Centrilobular emphysema ([facility]/HCC) Discharge Disposition: Home or Self Care 01/17/2025 Travel 01/12/2025 Mobile Encounter [facility] [address] [place] [address] Kapil Deluna DO 01/11/2025 5:53 PM CDT - 01/11/2025 9:31 PM CDT Emergency [facility] Emergency Department [address] [place] [address] Aki rBiceno DO COPD with exacerbation ([facility]/HCC) (Primary Dx) Discharge Disposition: Home or Self Care 01/11/2025 Travel 01/07/2025 10:54 PM CDT - 01/09/2025 12:29 PM CDT Hospital Encounter [facility] 4B Cardiac [address] [place] [address] Tresa Mueller MD Patel, Taksh, MD Bajor, Conrad Mitchell, DO Chronic combined systolic and diastolic heart failure ([facility]/HCC) Discharge Disposition: Home or Self Care 01/05/2025 Telephone [facility] [address] [place] [address] Veronika Yusuf, RN Anticoagulation 01/05/2025 Results Follow-Up [facility] Emergency Department [address] [place] [address] Ayana Roman, RN BLOOD CULTURE, BLOOD CULTURE 01/04/2025 6:42 AM CDT - 01/06/2025 3:08 PM CDT Hospital Encounter [facility] 6D Neuro Trauma [facility] [address] [place] [phone] Heike Camarillo MD McGinnis, MD [place] Miles Marwan, MD Chronic combined systolic and diastolic heart failure (CMS/HCC) Discharge Disposition: Home or Self Care 01/04/2025 Travel 01/03/2025 6:55 PM CDT - 01/03/2025 10:03 PM CDT Emergency [facility] Emergency Department [address] [place] [phone] Edmundo Cates DO COPD with exacerbation (CMS/HCC) (Primary Dx) Discharge Disposition: Home or Self Care 12/28/2024 2:19 AM CDT - 12/29/2024 12:02 PM CDT Hospital Encounter [facility] Medical Telemetry [address] [place] [phone] Tarik Albert MD Brooks, Cynthia J, DO Norman, Ryan Michael, DO CAD (coronary atherosclerotic disease) Discharge Disposition: Home or Self Care 12/28/2024 Travel 12/23/2024 10:38 PM CDT - 12/24/2024 5:50 AM CDT Emergency [facility] Emergency Department [address] [place] [phone] Discharge Disposition: Left without being seen 12/23/2024 Orders Only [facility] Ophthal[facility] [place] [address] [place] [address] [phone] Kumar Ochoa MD 12/22/2024 8:00 AM CDT Office Visit [facility] Ophthal[facility] [place] [address] [place] [address] [address] Kumar Ochoa MD Combined forms of age-related cataract of both eyes (Primary Dx); Right retinal detachment; Non-proliferative diabetic retinopathy, left eye (CMS/HCC); Other specified disorders of iris and ciliary body 12/22/2024 7:45 AM CDT Chart Note [facility] Ophthal[facility] [place] [address] [place] [address] [address] Kumar Ochoa MD 12/22/2024 Telephone [facility] Ophthalmology [place] [address] [address] Kumar Ochoa MD Surgery Talk (Called patient and left voicemail requesting a return call to schedule surgery.) 12/17/2024 5:18 PM CDT - 12/19/2024 12:58 PM CDT Hospital Encounter [facility] 4B Cardiac [address] [place] [address] Bala Prieto MD Elgayesh, Mostafa Mahmoud, MD Nerella, Ravi V., MD COPD with exacerbation ([facility]) Discharge Disposition: Home or Self Care 12/16/2024 12:50 PM CDT Office Visit [facility]hthal[facility] [place] [address] [address] Eduardo Craven MD Right retinal detachment (Primary Dx); Nuclear sclerotic cataract of right eye 12/13/2024 Telephone [facility] [address] [place] [address] Veronika Yusuf RN Anticoagulation 12/09/2024 5:59 PM CDT - 12/13/2024 12:00 PM CDT Hospital Encounter [facility] 4D Surgery Heart Lung [address] [place] [address] Mikey Rudolph MD Melton, Gregory A, DO Almond, Toni L, MD COPD exacerbation ([facility]) Discharge Disposition: Home or Self Care 12/09/2024 Travel 11/29/2024 Telephone [facility] [address] [place] [address] Veronika Yusuf, RN Anticoagulation 11/28/2024 5:27 PM CDT - 12/02/2024 1:32 PM CDT Hospital Encounter [facility] 3D Medical Telemetry [address] [place] [address] Cassius Sanderson MD Abbas, MD Dinah Soto, Matilde Henry MD COPD exacerbation ([facility]) Discharge Disposition: Home or Self Care from [...] PNEUM OCOCCAL CONJUGATE VACCINE 20-VALENT (PCV20), POLYSACCHARIDE [id number] CONJUGATE, ADJUVANT 0.5 ML (PF) IM 06/05/2023,12/02/2022,12/25/2021 [...] any clubs o r organizations such as baptism groups, unions, fraternal or athletic groups, or [...] about transportation for future doctor visits, 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 No 2024 Housing Stability Answer [...] on file Legal Sex Female 11:49 PM RETURNS CLERK Gender Identity Not on file Sexual Orientation Not on file Last Filed Vital Signs Vital Sign Reading Time Taken Comments Blood Pressure 159/88 02/26/2025 5:30 PM RETURNS CLERK Pulse 107 02/26/2025 5:30 PM RETURNS CLERK Temperature 36.8 C (98.2 F) 02/26/2025 1:57 PM RETURNS CLERK Respiratory Rate 20 02/26/2025 5:15 PM RETURNS CLERK Oxygen Saturation 91% 02/26/2025 5:30 PM RETURNS CLERK Inhaled Oxygen Concentration - - Weight 94.3 kg (208 lb) 02/26/2025 1:57 PM RETURNS CLERK Height 165.1 cm (5' 5 ) 02/26/2025 1:57 PM RETURNS CLERK Body Mass Index 34.61 02/26/2025 1:57 PM RETURNS CLERK Plan of Treatment Upcoming Encounters Date Type Department Care Team (Latest Contact Info) Description 03/22/2025 10:30 AM RETURNS CLERK Hospital Encounter [facility] [address] [place] [phone] Kumar Ochoa MD [address] [facility] [address] [place] [phone] Combined forms of age-related cataract of right eye 08/24/2025 2:20 PM CDT Office Visit [facility] [address] [phone] Marcia Claros MD [address] [address] Scheduled Procedures Name Priority Associated Diagnoses Date/Ti me CATARACT EXTRACTION IOL INSERTION FEMTO LASER ASSISTED LEVEL 1 Combined forms of age-related cataract of right eye Right retinal detachment 03/22/2025 7:35 AM RETURNS CLERK PARS PLANA VITRECTOMY WITH LASER Combined forms of age-related cataract of right eye Right retinal detachment 03/22/2025 7:35 AM RETURNS CLERK EYE PLACEMENT OF SILICONE OIL Combined forms of age-related cataract of right eye Right retinal detachment 03/22/2025 7:35 AM RETURNS CLERK Health Maintenance Due Date Last Done Comments [...] SCREEN 02/27/2024 02/26/2023 INFLUENZA VACCINE (#1) 2024 , 12/02/2022, 12/25/2021, Additional history exists COVID-19 Vaccine [...] Heart Failure Problem No Silvio MARGOT Hanks Autogenerated Goal Care Plan Autogenerated Problem No Windy [employer] Medical Devices Implanted Type Area Naval Designer Device Identifier Shelf Expiration Date Model / Serial / Lot Dev Closure Angioseal 6fr Vip [id number] - [id number] Implanted:Qty: 1 on 03/21/2024 by Kyler Helm MD at [facility] Closure Device Right: Groin TERUMO- CARDIOVASC SYS [id number] 10/25/2024 [id number] / / [id number] 93 Imp Toe Phalinx 10 Solid Angl Sml [id number] - [id number] Implanted:Qty: 1 on 07/20/2024 by Tereso Gil DPM at [facility] Toe Left: Foot [employer] 12/29/2031 [id number] / / [id number] Procedures Procedure Name Priority Date/Time Associated Diagnosis Comments EKG 12-LEAD Stat 02/26/2025 4:13 PM RETURNS CLERK Procedure Note - 02/26/2025 4:13 PM CSTThis note is in progress. 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1965 Requested By: Order Number: [id number] Reading MD: Measurements Intervals [place] Rate: 102 P: 258 OR: 150 QRS: 72 QRSD: 86 T: -23 QT: 354 QTc: 461 Interpretive Statements Unusual P axis, possible ectopic atrial tachycardia Cannot rule out Anterior infarct, age undetermined Abnormal ECG LIPASE Stat 02/26/2025 3:52 PM RETURNS CLERK TROPONIN BASELINE, 5TH GEN Stat 02/26/2025 3:52 PM RETURNS CLERK BRAIN NATRIURETIC PEPTIDE, BNP OR PROBNP Stat 02/26/2025 3:52 PM RETURNS CLERK COMPREHENSIVE METABOLIC PANEL Stat 02/26/2025 3:52 PM RETURNS CLERK CBC WITH DIFFERENTIAL Stat 02/26/2025 3:52 PM RETURNS CLERK XR CHEST PA OR AP 1 VW Stat 02/26/2025 3:04 PM RETURNS CLERK POC GLUCOSE Routine 02/23/2025 4:31 PM RETURNS CLERK Type 2 diabetes mellitus without complication, without long-term current use of insulin ([facility]) TROPONIN 2 HR, 5TH GEN Timed Study 01/21/2025 7:27 PM CDT XR CHEST PA OR AP 1 VW Stat 01/21/2025 6:25 PM CDT EKG 12-LEAD Stat 01/21/2025 [...] TROPONIN 6 HR, 5TH GEN Timed Study 01/18/2025 6:22 AM CDT TROPONIN 2 HR, 5TH GEN Timed Study 01/18/2025 2:32 AM CDT EXTRA TUBE (URINE [place]) Stat 01/18/2025 2:19 AM CDT URINALYSIS W/REFLEX MICROSCOPIC Stat 01/18/2025 2:19 AM CDT PT EVAL AND TREAT Stat 01/18/2025 1:4 7 AM CDT EKG 12-LEAD Stat 01/18/2025 1:38 AM CDT XR CHEST PA OR AP 1 VW Stat 01/17/2025 10:48 PM CDT RESPIRATORY PATHOGEN PCR PANEL [...] CHEST PA OR AP 1 VW Stat 01/11/2025 6:03 PM CDT EKG 12-LEAD Stat 01/11/2025 [...] TROPONIN 6 HR, 5TH GEN Timed Study 01/05/2025 6:12 PM CDT POC GLUCOSE Routine 01/05/2025 [...] TROPONIN 6 HR, 5TH GEN Timed Study 01/04/2025 2:15 PM CDT POC GLUCOSE Stat 01/04/2025 12:40 PM CDT TROPONIN 2 HR, 5TH GEN Timed Study 01/04/2025 10:52 AM CDT TROPONIN BASELINE, 5TH GEN [...] CHEST PA OR AP 1 VW Stat 01/04/2025 7:23 AM CDT BRAIN NATRIURETIC PEPTIDE, BNP [...] CHEST PA OR AP 1 VW Stat 12/28/2024 2:42 AM CDT EKG 12-LEAD Stat 12/28/2024 [...] 6:42 AM CDT C. DIFFICILE DETECTION Routine 12/18/2024 1:57 AM CDT CTA CHEST W AND/OR [...] CHEST PA OR AP 1 VW Stat 12/17/2024 6:47 PM CDT PULSE OXIMETRY, CONTINUOUS Stat [...] GEN Timed Study 12/10/2024 4:10 AM CDT POC GLUCOSE Routine [...] GEN Timed Study 12/09/2024 10:54 PM CDT BLOOD CULTURE Stat [...] 1 VW Stat 12/09/2024 6:27 PM CDT MAGNESIUM LEVEL Stat 12/09/2024 [...] TROPONIN 6 HR, 5TH GEN Timed Study 12/01/2024 8:17 PM CDT POC GLUCOSE Routine 12/01/2024 7:55 PM CDT POC GLUCOSE Routine 12/01/2024 4:18 PM CDT TROPONIN 2 HR, 5TH GEN Timed Study 12/01/2024 3:36 PM CDT XR CHEST PA OR AP 1 VW Stat 12/01/2024 2:42 PM CDT POC GLUCOSE Routine 12/01/2024 [...] PM CDT MRI LUMBAR WO CONTRAST Stat 11/30/2024 5:44 PM CDT POC GLUCOSE Routine 11/30/2024 [...] CHEST PA OR AP 1 VW Stat 11/28/2024 6:09 PM CDT BRAIN NATRIURETIC PEPTIDE, BNP OR PROBNP Stat 11/28/2024 5:48 PM CDT COMPREHENSIVE METABOLIC PANEL Stat 11/28/2024 5:48 PM CDT CBC WITH DIFFERENTIAL Stat 11/28/2024 5:48 PM CDT RESPIRATORY PATHOGEN PCR PANEL Stat 11/28/2024 5:48 PM CDT CRITICAL CARE Routine 11/28/2024 5:23 PM CDT HEMOGLOBIN A1C Stat 10/31/2024 3:08 AM CDT LIPID PANEL Routine 02/19/2024 5:29 AM RETURNS CLERK MICROALBUMIN/CREATINI NE RATIO, RANDOM UR Routine 02/26/2023 3:01 PM RETURNS CLERK Type 2 diabetes mellitus without complication, without long-term current use of insulin ([facility]) Wellness examination CERV/VAG CYTO SCREEN PAP W/HPV Routine 01/06/2023 12:00 AM CDT Wellness examination MAMMO DIAGNOSTIC UNI RIGHT W OR WO CAD Routine 01/24/2011 10:03 AM CDT Lump or mass in breast from Last 3 Months or Most Recently Relevant to Health Maintenance Results * (ABNORMAL) TROPONIN BASELINE, 5TH GEN (02/26/2025 3:52 PM RETURNS CLERK) Only the most recent of10 resultswithin the time period is included. Pathologist [facility] TROPONIN T, BASELINE 5TH GEN 21(H) <=10 ng/L 02/26/2025 4:58 PM RETURNS CLERK [facility] Blood Venipuncture / Unknown 02/26/2025 3:52 PM RETURNS CLERK 02/26/2025 4:05 PM RETURNS CLERK Narrative [facility] - 02/26/2025 4:58 PM RETURNS CLERK Troponin elevated. Nicolle Vo ASSISTANT TRACK AND FIELD COACH CHEMISTRY ORDERABLES nal Result [facility] CLIA # [id number] [address] [place] [address] * (ABNORMAL) CBC WITH DIFFERENTIAL (02/26/2025 3:52 PM RETURNS CLERK) Only the most recent of20 resultswithin the time period is included. Pathologist [facility] WBC 6.3 4.8 - 10.8 K/uL 02/26/2025 4:09 PM [facility] NRBCS 2(H) <1 % 02/26/2025 4:09 PM [facility] RBC 4.07(L) 4.20 - 5.40 M/uL 02/26/2025 4:09 PM [facility] HEMOGLOBIN 11.2(L) 12.0 - 16.0 g/dL 02/26/2025 4:09 PM [facility] HEMATOCRIT 37.7 36.0 - 46.0 % 02/26/2025 4:09 PM [facility] MCV 92.6 84.0 - 103.0 fL 02/26/2025 4:09 PM [facility] MCH 27.5 27.0 - 34.0 pg 02/26/2025 4:09 PM [facility] MCHC 29.7(L) 30.0 - 35.0 g/dL 02/26/2025 4:09 PM [facility] PLATELETS 166 140 - 440 K/uL 02/26/2025 4:09 PM [facility] MPV 12.3 8.9 - 12.8 fL 02/26/2025 4:09 PM [facility] RDW 19.4(H) 11.0 - 14.5 % 02/26/2025 4:09 PM [facility] RDW-STDEV 65.0(H) 37.0 - 54.0 fL 02/26/2025 4:09 PM [facility] NEUTROPHILS 44 42 - 75 % 02/26/2025 4:09 PM [facility] LYMPHOCYTES 40 24 - 44 % 02/26/2025 4:09 PM [facility] MONOCYTES 14(H) 2 - 10 % 02/26/2025 4:09 PM [facility] EOSINOPHILS 1 0 - 7 % 02/26/2025 4:09 PM [facility] BASOPHILS 1 0 - 1 % 02/26/2025 4:09 PM [facility] IMMATURE GRANULOCYTES 0 0 - 2 % 02/26/2025 4:09 PM [facility] NEUTROPHIL ABSOLUTE 2.79 2.00 - 8.00 K/uL 02/26/2025 4:09 PM [facility] LYMPHOCYTE ABSOLUTE 2.51 1.20 - 4.00 K/uL 02/26/2025 4:09 PM [facility] MONOCYTE ABSOLUTE 0.91(H) 0.10 - 0.60 K/uL 02/26/2025 4:09 PM [facility] EOSINOPHIL ABSOLUTE 0.06 0.00 - 0.70 K/uL 02/26/2025 4:09 PM [facility] BASOPHILS ABSOLUTE 0.03 0.00 - 0.20 K/uL 02/26/2025 4:09 PM [facility] IMMATURE GRANULOCYTES ABSOLUTE 0.02 0.00 - 0.10 K/uL 02/26/2025 4:09 PM [facility] SMEAR REVIEWED: NN - No Action Needed 02/26/2025 4:09 PM [facility] Blood Venipuncture / Unknown 02/26/2025 3:52 PM RETURNS CLERK 02/26/2025 4:03 PM RETURNS CLERK us Nicolle Vo NP HEMATOLOGY ORDERABLES F inal Result [facility] # [id number] [address] [place] [address] * (ABNORMAL) BRAIN NATRIURETIC PEPTIDE, BNP OR PROBNP (02/26/2025 3:52 PM RETURNS CLERK) Only the most recent of11 resultswithin the time period is included. PROBNP, N TERMINAL 570(H) 0 - 125 pg/mL 02/26/2025 4:58 PM [facility] Comment: INTERPRETIVE COMMENT based on [...] Blood Venipuncture / Unknown 02/26/2025 3:52 PM RETURNS CLERK 02/26/2025 4:05 PM RETURNS CLERK Nicolle Yolanda Vo NP CHEMISTRY ORDERABLES Fi nal Result Performing Organization Address [facility]/ZIP Co de Phone Number [facility] CLIA # [id number] [address] [address] [place], [place] [address] * LIPASE (02/26/2025 3:52 PM RETURNS CLERK) Only the most recent of2 resultswithin the time period is included. Pathologist [facility] LIPASE 24 13 - 60 U/L 02/26/2025 4:58 PM [facility] Blood Venipuncture / Unknown 02/26/2025 3:52 PM RETURNS CLERK 02/26/2025 4:05 PM RETURNS CLERK Delta Botello MD CHEMISTRY ORDERABLES Final R esult Performing Organization Address [facility] Co de Phone Number [facility] CLIA # [id number] [address] [address] * (ABNORMAL) COMPREHENSIVE METABOLIC PANEL (02/26/2025 3:52 PM RETURNS CLERK) Only the most recent of14 resultswithin the time period is included. SODIUM 142 136 - 145 mmol/L 02/26/2025 4:58 PM [facility] POTASSIUM 4.3 3.5 - 5.1 mmol/L 02/26/2025 4:58 PM [facility] Comment:Slightly hemolyzed. Result may be falsely elevated. CHLORIDE 106 98 - 107 mmol/L 02/26/2025 4:58 PM [facility] CO2 22 22 - 29 mmol/L 02/26/2025 4:58 PM [facility] CALCIUM 9.5 8.6 - 10.0 mg/dL 02/26/2025 4:58 PM [facility] BUN 14 6 - 20 mg/dL 02/26/2025 4:58 PM [facility] CREATININE 0.49(L) 0.51 - 0.95 mg/dL 02/26/2025 4:58 PM [facility] GLUCOSE 165(H) 74 - 99 mg/dL 02/26/2025 4:58 PM [facility] TOTAL PROTEIN 7.1 6.4 - 8.3 g/dL 02/26/2025 4:58 PM [facility] ALBUMIN 3.5 3.5 - 5.2 g/dL 02/26/2025 4:58 PM [facility] BILIRUBIN TOTAL 0.2 0.0 - 1.0 mg/dL 02/26/2025 4:58 PM [facility] ALKALINE PHOSPHATASE 108(H) 35 - 104 U/L 02/26/2025 4:58 PM [facility] AST 27 10 - 35 U/L 02/26/2025 4:58 PM [facility] Comment:Hemolysis present. R esult may be falsely elevated. ALT 15 <=35 U/L 02/26/2025 4:58 PM [facility] GFR >60 >=60 mL/min/1. 73 sq meter 02/26/2025 4:58 PM [facility] Comment:eGFR calculated with 2020 CKD-EPI equation. Vegetarian diet, extremely high or low muscle mass, and may affect results. Cystatin C with Glomerular Filtration Rate is a suitable alternative for these patients. ANION GAP 14 9 - 20 mmol/L 02/26/2025 4:58 PM [facility] Blood Venipuncture / Unknown 02/26/2025 3:52 PM RETURNS CLERK 02/26/2025 4:05 PM RETURNS CLERK us Nicolle Vo NP CHEMISTRY ORDERABLES Fi nal Result [facility] CLIA # [id number] [address] [place] [address] * XR CHEST PA OR AP 1 VW (02/26/2025 3:04 PM RETURNS CLERK) Only the most recent of11 resultswithin the time period is included. Anatomical Region Laterality Modality Chest Computed Radiogr aphy 02/26/2025 3:05 PM RETURNS CLERK Impressions 02/26/2025 3:19 PM RETURNS CLERK IMPRESSION: Please see below. Exam: XR CHEST [...] lower cervical spine. Impression: 1. As above. us Nicolle Vo NP DIAGNOSTIC IMAGING [place] [facility] Final Result * (ABNORMAL) POC GLUCOSE (02/23/2025 4:31 PM RETURNS CLERK) GLUCOSE POC 199(A) 65 - 99 mg/dL [facility] SPECIMEN SOURCE, GLUCOSE POC [facility] INTERNAL KIT QC POC Pass Pass [facility] KIT LOT NUMBER POC [id number] [facility] KIT EXP DATE POC 01/13/[address] [facility] Blood, capillary 02/23/2025 4:31 PM RETURNS CLERK us Marcia Claros MD POINT OF CARE TESTING Jana l Result Performing Organization Address City/[facility]/ZIP Co de Phone Number [facility] CLIA# [id number] [address] [place] [address] * (ABNORMAL) TROPONIN 2 HR, 5TH GEN (01/21/2025 7:27 PM CDT) Only the most recent of6 resultswithin the time period is included. TROPONIN T, 2 HR 5TH GEN 25(H) <=10 ng/L 01/21/2025 8:13 PM CDT [facility] DELTA 2HR TROPONIN T 1 See Interp. 01/21/2025 8:13 PM CDT [facility] Blood Venipuncture / Unknown 01/21/2025 7:27 PM CDT 01/21/2025 7:39 PM CDT Narrative [facility] - 01/21/2025 8:13 PM CDT Troponin elevated. Delta not changing. us Kay Majano MD CHEMISTRY ORDERABLES Final Result Performing Organization Address City/[facility]/ZIP Co de Phone Number [facility] CLIA # [id number] [address] [facility] [place] [address] * EKG 12-LEAD (01/21/2025 6:12 PM CDT) Only the most recent of18 resultswithin the time period is included. 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1965 Requested By: Order Number: [id number] Reading : Echo Tapia Measurements Intervals [place] Rate: 113 P: 26 OR: 140 QRS: 69 QRSD: 86 T: 49 QT: 350 QTc: 480 Interpretive Statements Sinus tachycardia Cannot rule out Inferior infarct, age undetermined Abnormal ECG Electronically Signed On 01-22-2025 12:25:10 RETURNS CLERK by Echo Tapia Procedure Note Provider, Historical - 01/22/[address] [address] Test Date: 2025-01-21 Pat Name: LE CLAUDIOKINS Department: 11 Room: 21 21 Gender: Female 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 SODIUM 137 136 - 145 mmol/L 01/21/2025 6:53 PM CDT [facility] POTASSIUM 4.0 3.5 - 5.1 mmol/L 01/21/2025 6:53 PM CDT [facility] CHLORIDE 100 98 - 107 mmol/L 01/21/2025 6:53 PM CDT [facility] CO2 24 22 - 29 mmol/L 01/21/2025 6:53 PM CDT [facility] CALCIUM 9.8 8.6 - 10.0 mg/dL 01/21/2025 6:53 PM CDT [facility] BUN 16 6 - 20 mg/dL 01/21/2025 6:53 PM CDT [facility] CREATININE 0.51 0.51 - 0.95 mg/dL 01/21/2025 6:53 PM CDT [facility] GLUCOSE 345(H) 74 - 99 mg/dL 01/21/2025 6:53 PM CDT [facility] GFR >60 >=60 mL/min/1.7 3 sq meter 01/21/2025 6:53 PM CDT [facility] Comment:eGFR calculated with 2020 CKD-EPI equation. Vegetarian diet, extremely high or low muscle mass, and may affect results. Cystatin C with Glomerular Filtration Rate is a suitable alternative for these patients. ANION GAP 13 9 - 20 mmol/L 01/21/2025 6:53 PM CDT [facility] Blood Venipuncture / Unknown 01/21/2025 6:00 PM CDT 01/21/2025 6:13 PM CDT Kay Majano MD CHEMISTRY ORDERABLES Final Result [facility] CLIA # [id number] [address] [place] [address] * (ABNORMAL) POC GLUCOSE (01/19/2025 8:50 AM CDT) Only the most recent of91 resultswithin the time period is included. GLUCOSE POC 310(H) 74 - 99 mg/dL 01/19/2025 8:50 AM CDT [facility] SPECIMEN SOURCE, GLUCOSE POC Capillary 01/19/2025 8:50 AM CDT [facility] Blood, whole 01/19/2025 8:50 AM CDT 01/19/2025 10:36 AM CDT Ronak Cortes MD POINT OF CARE TESTI NG Final Result Performing Organization Address [facility] Co de Phone Number [facility] CLIA # [id number] [address] [facility] [place], [place] [address] * (ABNORMAL) TROPONIN 6 HR, 5TH GEN (01/18/2025 6:22 AM CDT) Only the most recent of5 resultswithin the time period is included. TROPONIN T, 6 HR 5TH GEN 15(H) <11 ng/L 01/18/2025 6:56 AM CDT [facility] [employer] [facility] DELTA 6HR TROPONIN T -5 See Interp. 01/18/2025 6:56 AM CDT [facility] Blood Venipuncture / Unknown 01/18/2025 6:22 AM CDT 01/18/2025 6:26 AM CDT Narrative [facility] [employer] [facility] - 01/18/2025 6:56 AM CDT Troponin elevated. Delta indeterminate. Delay in collection of timed specimen beyond recommended collection interval. Results must be interpreted in clinical context. Derrick Maldonado MD CHEMISTRY ORDERABLES Final R esult Performing Organization Address [facility] de Phone Number [facility] CLIA # [id number] [address] [facility] [place] [address] * EXTRA TUBE (URINE [place]) (01/18/2025 2:19 AM CDT) Only the most recent of2 resultswithin the time period is included. Urine URINE SPECIMEN OBTAINED BY CLEAN CATCH PROCEDURE / Unknown Collection / Unknown 01/18/2025 2:19 AM CDT 01/18/2025 2:27 AM CDT Derrick Maldonado MD URINE ORDERABLES Final Resul t Performing Organization Address [facility] Co de Phone Number [facility] CLIA # [id number] [address] [place] [address] * (ABNORMAL) URINALYSIS WITH REFLEX MICROSCOPIC (01/18/2025 2:19 AM CDT) Only the most recent of2 resultswithin the time period is included. COLOR UA Yellow Pale to Dark Yellow 01/18/2025 2:45 AM T [facility] CLARITY UA Cloudy(A) Clear 01/18/2025 2:45 AM CDT [facility] SPECIFIC GRAVITY UA 1.035 1.003 - 1.035 01/18/2025 2:45 AM CDT [facility] PH UA 6.0 5.0 - 8.0 01/18/2025 2:45 AM T [facility] LEUKOCYTE ESTERASE UA 3+(A) Negative 01/18/2025 2:45 AM CDT [facility] NITRITE UA Negative Negative 01/18/2025 2:45 AM T [facility] PROTEIN UA Negative Negative 01/18/2025 2:45 AM T [facility] GLUCOSE UA 4+(A) Negative 01/18/2025 2:45 AM T [facility] KETONES UA Negative Negative 01/18/2025 2:45 AM T [facility] UROBILINOGEN UA <2.0 <2.0 mg/dL 2:45 AM T [facility] BILIRUBIN UA Negative Negative 01/18/2025 2:45 AM T [facility] BLOOD UA 1+(A) Negative 01/18/2025 2:45 AM T [facility] WBC UA 11-25(A) 0 - 2 /hpf 01/18/2025 2:45 AM T [facility] RBC UA >100(A) 0 - 2 /hpf 01/18/2025 2:45 AM CDT [facility] BACTERIA UA 2+(A) Negative /hpf 01/18/2025 2:45 AM CDT [facility] EPITHELIAL CELLS, URINE 0-5 0 - 5 /hpf 01/18/2025 2:45 AM CDT [facility] YEAST, BUDDING Present(A) Absent 01/18/2025 2:45 AM CDT [facility] Urine URINE SPECIMEN OBTAINED BY CLEAN CATCH PROCEDURE / Unknown Collection / Unknown 01/18/2025 2:19 AM CDT 01/18/2025 2:27 AM CDT us Derrick Maldonado MD URINE ORDERABLES Final Resul t [facility] CLMT # [id number] Critical access hospital[address] [address] * RESPIRATORY PATHOGEN PCR PANEL (01/17/2025 10:40 PM CDT) Only the most recent of4 resultswithin the time period is included. [facility] Respiratory Pathogen PCR Panel NOT DETECTED No respiratory pathogen nucleic acids detected. 01/17/2025 11:46 PM CDT [facility] COVID-19 PCR NOT DETECTED Not Detected 01/17/2025 11:46 PM CDT [facility] Upper Respiratory ENTIRE NASOPHARYNX / Unknown Collection / Unknown 01/17/2025 10:40 PM CDT 01/17/2025 10:44 PM CDT Narrative [facility] - 01/17/2025 11:46 PM CDT The Film [...] GENERAL ORDERABLES Final Result Performing Organization Address [facility] Co de Phone Number [facility] CLIA # [id number] [address] [id number] * (ABNORMAL) PTT (01/17/2025 10:28 PM CDT) Only the most recent of2 resultswithin the time period is included. PTT 22.0(L) 24.8 - 37.2 seconds 01/17/2025 10:46 PM CDT [facility] Blood Venipuncture / Unknown 01/17/2025 10:28 PM CDT 01/17/2025 10:33 PM CDT [facility] [employer] [facility] - 01/17/2025 10:46 PM CDT Therapeutic Range: Hi-level PE/DVT heparin protocol 80.1 - 95.0 sec Lo-level PE/DVT heparin protocol 70.1 - 85.0 sec Cardiac Heparin Protocol 70.1 - 100.0 sec Dave Cline MD HEMATOLOGY ORDERABLES Final Result Performing Organization Address [facility] Co de Phone Number [facility] CLIA # [id number] [facility] [address] [address] * PROTIME-INR (01/17/2025 10:28 PM CDT) Only the most recent of19 resultswithin the time period is included. PROTIME 14.8 12.7 - 14.9 Seconds 01/17/2025 10:46 PM CDT [facility] [employer] [facility] INR 1.1 0.8 - 1.2 01/17/2025 10:46 PM CDT [facility] Blood Venipuncture / Unknown 01/17/2025 10:28 PM CDT 01/17/2025 10:33 PM CDT Narrative [facility] - 01/17/2025 10:46 PM CDT Expected Values for INR: DVT/PE Goal INR 2.5; range 2.0 - 3.0 Valve Replacement Tissue Goal INR 2.5; range 2.0 - 3.0 Valve Replacement Mechanical Goal INR 3.0; range 2.5 - 3.5 POST-GA Goal INR 2.5; range 2.0 - 3.0 or Goal INR 3.0; range 2.5 - 3.5 Atrial Fibrillation Goal INR 2.5; range 2.0 - 3.0 Ischemic Stroke Goal INR 2.5; range 2.0 - 3.0 Dave Cline MD HEMATOLOGY ORDERABLES Final Result [id number] [address] [place] [address] * D-DIMER (01/17/2025 10:28 PM CDT) Only the most recent of5 resultswithin the time period is included. D-DIMER QUANT <0.27 0.00 - 0.50 ug/mL FEU 01/17/2025 10:46 PM CDT [facility] Blood Venipuncture / Unknown 01/17/2025 10:28 PM CDT 01/17/2025 10:33 PM CDT Narrative [facility] - 01/17/2025 10:46 PM CDT D-Dimer assay [...] ug/mL FEU 71-80 years: 0.71-0.80 ug/mL FEU Dave Cline MD HEMATOLOGY ORDERABLES Final Result [facility] CLEMMETT # [id number] [address] [place] [place] [address] [place] [address] * (ABNORMAL) BLOOD GAS ARTERIAL (01/17/2025 10:10 PM CDT) Only the most recent of2 resultswithin the time period is included. [facility] PH BLOOD POC 7.42 7.35 - 7.45 01/17/2025 10:10 PM T [facility] PCO2 POC 47(H) 35 - 45 mm Hg 01/17/2025 10:10 PM T [facility] PO2 POC 32(LL) 80 - 105 mm Hg 01/17/2025 10:10 PM T [facility] HCO3 (CALC) POC 31(H) 22 - 26 mmol/L 01/17/2025 10:10 PM T [facility] HEMOGLOBIN POC 12.4 12.0 - 18.0 g/dL 01/17/2025 10:10 PM T [facility] BASE EXCESS POC 6(H) -2 - 3 mmol/L 01/17/2025 10:10 PM T [facility] O2 SATURATION POC 49(L) 95 - 98 % 01/17/2025 10:10 PM T [facility] SODIUM POC 132(L) 138 - 146 mmol/L 01/17/2025 10:10 PM T [facility] POTASSIUM POC 3.6 3.5 - 4.9 mmol/L 01/17/2025 10:10 PM T [facility] HEMATOCRIT POC 37(L) 38 - 51 % 01/17/2025 10:10 PM CDT [facility] PH TEMP CORRECT 7.42 7.35 - 7.45 01/17/2025 10:10 PM CDT [facility] PCO2 TEMP CORRECT 47(H) 35 - 45 mm Hg 01/17/2025 10:10 PM CDT [facility] PO2 TEMP CORRECT 32(LL) 80 - 105 mm Hg 01/17/2025 10:10 PM CDT [facility] SPECIMEN SOURCE, GASES POC Arterial 01/17/2025 10:10 PM CDT [facility] CRITICALTO POC DOCTOR MIGEL 01/17/2025 10:10 PM CDT [facility] NAME POC [id number] 01/17/2025 10:10 PM CDT [facility] RESULTS POC Y 01/17/2025 10:10 PM CDT [facility] TIME POC 2212 01/17/2025 10:10 PM CDT [facility] CALCIUM IONIZED POC 5.0 4.8 - 5.2 mg/dL 01/17/2025 10:10 PM CDT [facility] TCO2 (CALC) POC 32(H) 23 - 27 mmol/L 01/17/2025 10:10 PM CDT [facility] PUNC SITE POC ART PUNCT 01/17/2025 10:10 PM CDT [facility] PATIENT'S TEMPERATURE POC 37.0 degrees 01/17/2025 10:10 PM CDT [facility] Blood, arterial 01/17/2025 1 0:10 PM CDT 01/17/2025 10:27 PM CDT us Dedra Tawanda Woodehraymond ASSISTANT TRACK AND FIELD COACH ABG ORDERABLES Final Result [facility] CLIA # [id number] [facility] [address] [address] [place], [place] [address] * Critical Care (01/17/2025 9:32 PM CDT) [...] AM CDT Narrative 01/09/2025 2:22 PM CDT [facility] Noninvasive Vascular Laboratory [address] [place] [address] Noninvasive Vascular Lab Venous Exam Complete Lower Extremity Duplex Patient: Le Diaz Study ID: US VENOUS DOPPLE Gender: F : 1965 Age: 59 Room: 4163 Height: Weight: BSA: Pt status: Inpatient Study Date: 01/09/2025 Study Time: 07:30:16 AM BSA: Ordering: Kapil Deluna Interpreting:Lm Zimmerman Mold Sander: CORKY Indications: Extremity edema. Lower extremity pain. [...] Procedure Note Lm Zimmerman MD - 01/09/2025 [facility] Noninvasive Vascular Laboratory [address] [place] [address] Noninvasive Vascular Lab Venous Exam Complete Lower Extremity Duplex Patient: Le Diaz Study ID: US VENOUS DOPPLE Gender: F : 1965 Age: 59 Room: 4163 Height: Weight: BSA: Pt status: Inpatient Study Date: 01/09/2025 Study Time: 07:30:16 AM BSA: Ordering: Kapil Deluna Interpreting:Lm Zimmerman Mold Sander: CORKY Indications: Extremity edema. Lower extremity pain. [...] saphenous Patent; Normal phasicity; spontaneous;compressible; normal augmentation Ellis [...] - 99 mg/dL 01/09/2025 12:37 AM CDT [facility] [employer] [facility] Blood Venipuncture / Unknown 01/08/2025 11:56 PM CDT 01/09/2025 12:04 AM CDT Ronak Cortes MD CHEMISTRY ORDERABLE S Final Result [facility] CLIA # [id number] [address] [address] [place] [address] * CTA CHEST W AND/OR WO CONTRAST (01/08/2025 1:27 AM CDT) Only the most recent of3 [...] defect with LVEF 35-39%. Lm Zimmerman MD, [facility], [facility] INTERFACE SYSTEM - 01/06/2025 9:42 AM CDT [...] axis views. All imaging was performed on [employer] and data analyzed using [employer]. The resting heart rate was 96 beats per minute and peak heart rate during stress was 119 beats per minute. Blood pressure was 125/74 mmHg at rest and 131/79 mm Hg at peak stress. Blood pressure response was appropriate during the stress procedure. The resting electrocardiogram demonstrated atrial rhythm with PVC, possible old inferior GA, mild nonspecific ST-segment changes. During stress, no [...] axis views. All imaging was performed on [employer] and data analyzed using [employer]. The resting heart rate was 96 beats per minute and peak heart rate during stress was 119 beats per minute. Blood pressure was 125/74 mmHg at rest and 131/79 mm Hg at peak stress. Blood pressure response was appropriate during the stress procedure. The resting electrocardiogram demonstrated atrial rhythm with PVC, possible old inferior GA, mild nonspecific ST-segment changes. During stress, no [...] axis views. All imaging was performed on [employer] and data analyzed using [employer]. The resting heart rate was 96 beats per minute and peak heart rate during stress was 119 beats per minute. Blood pressure was 125/74 mmHg at rest and 131/79 mm Hg at peak stress. Blood pressure response was appropriate during the stress procedure. The resting electrocardiogram demonstrated atrial rhythm with PVC, possible old inferior GA, mild nonspecific ST-segment changes. During stress, no [...] axis views. All imaging was performed on [employer] and data analyzed using [employer]. The resting heart rate was 96 beats per minute and peak heart rate during stress was 119 beats per minute. Blood pressure was 125/74 mmHg at rest and 131/79 mm Hg at peak stress. Blood pressure response was appropriate during the stress procedure. The resting electrocardiogram demonstrated atrial rhythm with PVC, possible old inferior GA, mild nonspecific ST-segment changes. During stress, no [...] 2.2(H) <=2.0 mmol/L 01/06/2025 2:24 AM CDT [facility] Blood Venipuncture / Unknown 01/06/2025 1:54 AM CDT 01/06/2025 2:00 AM CDT Shailesh Elaine MD CHEMISTRY ORDERABLES Final Res ult Performing Organization Address [facility] Co de Phone Number [facility] CLIA # [id number] [address] [place] [address] * (ABNORMAL) CBC WITHOUT DIFFERENTIAL (01/06/2025 1:54 AM CDT) Only the most recent of2 resultswithin the time period is included. Pathologist [facility] WBC 7.0 4.8 - 10.8 K/uL 01/06/2025 2:07 AM CDT [facility] NRBCS 2(H) <1 % 01/06/2025 2:07 AM T [facility] RBC 3.67(L) 4.20 - 5.40 M/uL 01/06/2025 2:07 AM T [facility] HEMOGLOBIN 10.7(L) 12.0 - 16.0 g/dL 01/06/2025 2:07 AM T [facility] HEMATOCRIT 34.8(L) 36.0 - 46.0 % 01/06/2025 2:07 AM T [facility] MCV 94.8 84.0 - 103.0 fL 01/06/2025 2:07 AM T [facility] MCH 29.2 27.0 - 34.0 pg 01/06/2025 2:07 AM CDT [facility] MCHC 30.7 30.0 - 35.0 g/dL 01/06/2025 2:07 AM CDT [facility] PLATELETS 172 140 - 440 K/uL 01/06/2025 2:07 AM CDT [facility] MPV 11.0 8.9 - 12.8 fL 01/06/2025 2:07 AM CDT [facility] RDW 18.8(H) 11.0 - 14.5 % 01/06/2025 2:07 AM CDT [facility] RDW-STDEV 66.2(H) 37.0 - 54.0 fL 01/06/2025 2:07 AM CDT [facility] Blood Venipuncture / Unknown 01/06/2025 1:54 AM CDT 01/06/2025 1:58 AM CDT us Shailesh Elaine MD HEMATOLOGY ORDERABLES Final Re sult Performing Organization Address City/[facility]/ZIP Co de Phone Number [facility] CLIA # [id number] Critical access hospital[address] [address] [place] [address] * MAGNESIUM LEVEL (01/05/2025 4:36 AM CDT) Only the most recent of5 resultswithin the time period is included. MAGNESIUM 1.9 1.6 - 2.6 mg/dL 01/05/2025 5:20 AM CDT [facility] Blood Venipuncture / Unknown 01/05/2025 4:36 AM CDT 01/05/2025 4:42 AM CDT us Nani Borges MD CHEMISTRY ORDERABLES Fin al Result [facility] CLIA # [id number] [place] [address] [place] [address] * INSERT PERIPHERAL IV (01/04/2025 8:35 AM CDT) Only the most recent of2 resultswithin the time period is included. Peggy SPR CARDIOLOGY [facility] - 01/04/2025 8:35 AM CDT Tasha Glynn RN 01/04/2025 9:14 AM VASCULAR ACCESS NOTE Midline PATIENT NAME: Le Diaz DATE OF : 1965 CSN: [id number] DATE: 01/04/2025 Room: 05/23 Admit Date: 01/04/2025 [...] MD IV THERAPY ORDERABLES Final Resu lt [facility] [id number] [address] [facility] [address] [place] [id number], [place] [phone] * (ABNORMAL) POC LACTIC ACID (01/04/2025 7:43 AM CDT) LACTIC ACID POC 5.3(HH) <=2.0 mmol/L 01/04/2025 7:43 AM CDT [facility] SPECIMEN SOURCE, GASES POC Venous 01/04/2025 7:43 AM CDT [facility] CRITICALTO POC 01/04/2025 7:43 AM CDT [facility] NAME POC [id number] C 01/04/2025 7:43 AM CDT [facility] RESULTS POC Y 01/04/2025 7:43 AM CDT [facility] TIME POC 744 01/04/2025 7:43 AM CDT [facility] PUNC SITE POC No Charge 01/04/2025 7:43 AM T [facility] Blood 01/04/2025 7:43 AM CDT 01/04/2025 7:45 AM CDT [facility] - 01/04/2025 7:43 AM CDT References ranges displayed are for Arterial samples. us Heike Camarillo MD POINT OF CARE TESTING Final Resu lt [facility] # [id number] [address] [place] [address] * (ABNORMAL) BLOOD GAS VENOUS (01/04/2025 7:43 AM CDT) Only the most recent of4 resultswithin the time period is included. PH BLOOD POC 7.35 7.32 - 7.43 01/04/2025 7:43 AM [facility] PCO2 POC 37(L) 38 - 50 mm Hg 01/04/2025 7:43 AM [facility] PO2 POC 56(H) 25 - 40 mm Hg 01/04/2025 7:43 AM [facility] HCO3 (CALC) POC 20(L) 22 - 29 mmol/L 01/04/2025 7:43 AM [facility] HEMOGLOBIN POC 11.7(L) 12.0 - 18.0 g/dL 01/04/2025 7:43 AM [facility] BASE EXCESS POC -5(L) -2 - 3 mmol/L 01/04/2025 7:43 AM [facility] O2 SATURATION POC 88(H) 40 - 70 % 01/04/2025 7:43 AM T [facility] SODIUM POC 134(L) 135 - 145 mmol/L 01/04/2025 7:43 AM T [facility] POTASSIUM POC 4.8 3.5 - 4.9 mmol/L 01/04/2025 7:43 AM [facility] HEMATOCRIT POC 35(L) 38 - 51 % 01/04/2025 7:43 AM [facility] PH TEMP CORRECT 7.35 7.32 - 7.43 01/05/20 7:43 AM [facility] PCO2 TEMP CORRECT 37(L) 38 - 50 mm Hg 01/04/2025 7:43 AM [facility] PO2 TEMP CORRECT 56(H) 25 - 40 mm Hg 01/04/2025 7:43 AM [facility] SPECIMEN SOURCE, GASES POC Venous 01/04/2025 7:43 AM [facility] CRITICALTO POC DRMileyPLATE 01/04/2025 7:43 AM [facility] NAME POC [id number] C 01/04/2025 7:43 AM [facility] RESULTS POC Y 01/04/2025 7:43 AM [facility] TIME POC 744 01/04/2025 7:43 AM [facility] CALCIUM IONIZED POC 5.1 4.8 - 5.2 mg/dL 01/04/2025 7:43 AM [facility] TCO2 (CALC) POC 22 22 - 26 mmol/L 01/04/2025 7:43 AM [facility] PUNC SITE POC No Charge 01/04/2025 7:43 AM [facility] PATIENT'S TEMPERATURE POC 37.0 degrees 01/04/2025 7:43 AM [facility] Blood, venous 01/04/2025 7:4 3 AM CDT 01/04/2025 7:45 AM CDT us Heike Camarillo MD ABG ORDERABLES Final Result Performing Organization Address [facility]/ZIP Co de Phone Number [facility] [employer] [facility] CLIA # [id number] [address] [facility] [place] [address] * XR CHEST PA AND LATERAL 2 [...] The osseous structures appear grossly intact. us Edmundo Loan DO DIAGNOSTIC IMAGING ORDERABLES F inal Result * EXTRA TUBE (BLUE) (01/03/2025 7:43 PM CDT) Blood Venipuncture / Unknown 01/03/2025 7:43 PM CDT 01/03/2025 7:53 PM CDT us Edmundo Loan DO HEMATOLOGY ORDERABLES Final Res ult Performing Organization Address City/[facility]/ZIP Co de Phone Number [facility] [employer] [facility] CLIA # [id number] [address] [address] [place] [address] * BLOOD CULTURE (01/03/2025 7:43 PM CDT) Only the most recent of4 resultswithin the time period is included. BLOOD CULTURE No growth 01/08/2025 9:27 PM CDT [facility] Blood (Peripheral) Venipuncture / Unknown 01/03/2025 7:43 PM CDT 01/03/2025 7:50 PM CDT us Edmundo Loan DO MICROBIOLOGY - GENERAL ORDERABL ES Final Result Performing Organization Address City/State/[facility] Co de Phone Number [facility] CLIA # [id number] Critical access hospital[address] [address] * US DOPPLER VENOUS ARM LEFT (12/28/2024 11:52 AM CDT) Anatomical Region Laterality Modality Upper Extremity Ultrasound 12/28/2024 11:3 9 AM CDT Narrative 12/28/2024 3:22 PM CDT [facility] Noninvasive Vascular Laboratory [address] [place] [address] Noninvasive Vascular Lab Venous Exam Limited Upper Extremity Duplex Patient: Le Diaz Study ID: US DOPPLER VENOU Gender: F : 1965 Age: 59 Room: Height: Weight: BSA: Pt status: Emergency Study Date: 12/28/2024 Study Time: 11:39:58 AM BSA: Ordering: Luzma Romero Interpreting:Prince Luana Mold Sander: ROCHELLE Indications: Extremity Edema. Summary Impression: 1. [...] 1200 - SVT cephalic and basilic vein [facility] is accredited with the Intersocietal Commission for the Accreditation of Vascular Laboratories (ICAVL) Prepared and Electronically Authenticated Prince Luana Confirmed 12/28/2024 15:22 Procedure Note Prince Craft MD - 12/28/2024 [facility] [address] [place] [id number] Noninvasive Vascular Lab Venous Exam Limited Upper Extremity Duplex Patient: Le Diaz Study ID: US DOPPLER VENOU Gender: F : 1965 Age: 59 Room: Height: Weight: BSA: Pt status: Emergency Study Date: 12/28/2024 Study Time: 11:39:58 AM BSA: Ordering: uLzma Romero Interpreting:Prince Luana Mold Sander: ROCHELLE Indications: Extremity Edema. Summary Impression: 1. [...] 1200 - SVT cephalic and basilic vein [facility] is accredited with theIntersocietal Commission for the Accreditation of Vascular Laboratories (ICAVL) Prepared and Electronically Authenticated Prince Luana Confirmed 12/28/2024 15:22 Luzma Romero DO US ORDERABLES Final Result [...] by overlying bowel gas. Otherwise unremarkable exam. Luzma Romero DO US ORDERABLES Final Result * INFLUENZA A/B, RSV AND COVID-19 PCR PANEL (12/28/2024 8:54 AM CDT) Only the most recent of2 resultswithin the time period is included. Pathologist [facility] COVID-19 PCR NOT DETECTED Not Detected 12/29/19 11:52 AM CDT [facility] Influenza A by PCR NOT DETECTED Not Detected 12/28/2024 11:52 AM CDT [facility] Influenza B by PCR NOT DETECTED Not Detected 12/28/2024 11:52 AM CDT [facility] RSV by PCR NOT DETECTED Not Detected 12/28/2024 11:52 AM CDT [facility] Upper Respiratory ENTIRE NASOPHARYNX / Unknown Collection / Unknown 12/28/2024 8:54 AM CDT 12/28/2024 8:57 AM CDT Narrative [facility] - 12/28/2024 11:52 AM CDT This [...] MICROBIOLOGY - GENERAL ORDER JANAY Final Result [facility] CLIA # [id number] [address] [place] [address] * (ABNORMAL) TSH REFLEXIVE (12/28/2024 8:50 AM CDT) Pathologist [facility] TSH 0.26(L) 0.27 - 4.20 uIU/mL 12/28/2024 9:39 AM CDT [facility] Blood Venipuncture / Unknown 12/28/2024 8:50 AM CDT 12/28/2024 8:54 AM CDT Luzma Romero DO CHEMISTRY ORDERABLES Final R esult Performing Organization Address [facility] Co de Phone Number [facility] CLIA # [id number] [address] [place], [place] [address] * T3 FREE (12/28/2024 8:50 AM CDT) T3 FREE 3.7 2.3 - 4.2 pg/mL 12/29/2024 4:55 AM CDT [facility] Blood Venipuncture / Unknown 12/28/2024 8:50 AM CDT 12/28/2024 10:05 AM CDT Narrative [facility] - 12/29/2024 4:55 AM CDT Performing Organization Information: Site ID: [place] Name: [facility] Address: [address] [place] [address] Director: Emily Dumont MD Luzma Romero DO CHEMISTRY ORDERABLES Final R esult Performing Organization Address [facility] de Phone Number [facility] * T4 FREE (12/28/2024 8:50 AM CDT) T4 FREE 1.17 0.81 - 1.70 ng/dL 12/28/2024 10:06 AM CDT [facility] Blood Venipuncture / Unknown 12/28/2024 8:50 AM CDT 12/28/2024 8:54 AM CDT Luzma Romero DO CHEMISTRY ORDERABLES Final R esult Performing Organization Address [facility] Co de Phone Number [facility] CLIA # [id number] [address] [place], [place] [id number] * Critical Care (12/28/2024 2:16 AM CDT) [...] BOTH EYES (12/22/2024 9:40 AM CDT) Narrative [facility] OPHTHALMOLOGY ORDERS - 12/22/2024 9:40 AM CDT IOL obtained for cataract surgery Kumar Ochoa MD OPHTH ULTRASOUND Final Result Performing Organization Address [facility] Co de Phone Number [facility] OPHTHALMOLOGY ORDERS * CORNEAL TOPOGRAPHY - OU - BOTH EYES (12/22/2024 9:40 AM CDT) Kumar Ochoa MD OPHTH MAPPING Final Result Performing Organization Address [facility]/ZIP Co de Phone Number [facility] OPHTHALMOLOGY ORDERS * AUTO-REFRACTOR & KERATOMETER OU BOTH EYES (12/22/2024 9:40 AM CDT) Kumar Ochoa MD OPH CLINIC PROCEDURES Final Result Performing Organization Address [facility]/ZIP Co de Phone Number [facility] OPHTHALMOLOGY ORDERS * EYE DROPS (12/22/2024 9:06 AM CDT) Narrative [facility] - 12/22/2024 9:40 AM CDT Medications Eye Drops: 1 Drop phenylephrine 2.5 % Route: Topical, Site: Eye, Bilateral NDC: 65504-097-74, Lot: [id number] 1 Drop proparacaine 0.5 % Route: Topical, Site: Eye, Bilateral NDC: 33446-504-43, Lot: [id number] 1 Drop tropicamide 1 % Route: Topical, Site: Eye, Bilateral NDC: 69430-673-68, Lot: [id number] Notes Eye drop orders per protocol for Basic Sales Promotion Manager Eye Exam (Dilated) 1 Drop proparacaine (OPHTHAINE) 0.5% ophthalmic solution prior to tonometry 1 Drop tropicamide (MYDRIACYL) 1% ophthalmic solution 1 Drop phenylephrine (AK-DILATE, MYDFRIN) 2.5% ophthalmic solution Kumar Ochoa MD OPHTH CLINIC PROCEDURES Final Result [facility] CLIA# [id number] [address] [place] [address] * XR LUMBAR SPINE 2 OR 3 [...] Low Back Pain. Diagnosis: COPD with exacerbation (CMS/[facility]). Findings: There is a mild remote L1 [...] DIFFICILE DETECTION (12/18/2024 1:57 AM CDT) Pathologist [facility] TOXIGENIC C DIFFICILE NOT DETECTED Not Detected 12/18/2024 3:10 AM CDT [facility] Stool STOOL SPECIMEN / Unknown Collection / Unknown 12/18/2024 1:57 AM CDT 12/18/2024 2:19 AM CDT Narrative [facility] - 12/18/2024 3:10 AM CDT This assay is used to detect Toxigenic C. difficile target(B gene) DNA sequences in unformed stool specimens. If toxigenic C. difficile is not detected, but clinical suspicion is high please consult ID for consultation and potential repeat testing. This test should not be used as a test of cure. Landon Blankenship MD MICROBIOLOGY - [facility] AL ORDERABLES Final Result [facility] CLIA # [id number] [address] [place] [place] [address] [place], [place] [address] * MANUAL DIFFERENTIAL (12/17/2024 7:23 PM CDT) [facility] PLATELET EST. Adequate 12/17/2024 8:26 PM CDT [facility] ANISOCYTOSIS 1+ /hpf 12/17/2024 8:26 PM CDT [facility] COTTON-JOLLY BODIES Present /hpf 12/17/2024 8:26 PM CDT [facility] Blood Venipuncture / Unknown 12/17/2024 7:23 PM CDT 12/17/2024 7:33 PM CDT Bala Prieto MD HEMATOLOGY ORDERABLES COM Fi nal Result Performing Organization Address [facility] Co de Phone Number [facility] CLIA # [id number] [address] [address] [place] [address] * (ABNORMAL) TROPONIN (12/17/2024 7:23 PM CDT) TROPONIN T, 5TH GEN 20(H) <=10 ng/L 12/17/2024 8:06 PM CDT [facility] Comment:Hemolysis can falsel y decrease Troponin quantitation. Blood Venipuncture / Unknown 12/17/2024 7:23 PM CDT 12/17/2024 7:33 PM CDT Narrative [facility] - 12/17/2024 8:06 PM CDT Troponin elevated. Bala Prieto MD CHEMISTRY ORDERABLES Final R esult Performing Organization Address [facility] Co de Phone Number [facility] CLIA # [id number] [address] [address] * EYE DROPS (12/16/2024 2:39 PM CDT) Narrative [facility] - 12/16/2024 2:39 PM CDT Medications Eye Drops: 2 Drop hydroxypropyl methylcellulose (GONAK) 2.5% ophthalmic solution Route: Right Eye [facility]: 11399-791-00, Lot: [id number], Expiration date: 03/23/2026 2 Drop proparacaine (OPHTHAINE) 0.5% ophthalmic solution Route: Right Eye NDC: 66248-772-52, Lot: [id number], Expiration date: 10/19/2025 1 Drop sodium borate-boric acid-sodium chloride-water eye wash solution Route: Right Eye NDC: 1309-8675-51, Lot: [id number], Expiration date: 01/19/2026 Notes Eye drop orders per protocol for B Scan Administer the following medications approximately 1 minute apart into the procedural/operative/affected eye 3 drops of proparacaine (OPHTHAINE) 0.5% ophthalmic solution 1 drop artificial tear (GENTEAL) 0.3% ophthalmic gel (SYSTANE) Eduardo Craven MD [facility] CLINIC PROCEDURES Fin al Result Performing Organization Address [facility] Co de Phone Number [facility] CLIA# [id number] [address] [place] [address] * B-SCAN ULTRASOUND - OD - RIGHT EYE (12/16/2024 2:39 PM CDT) Narrative [facility] OPHTHALMOLOGY ORDERS - 12/16/2024 2:39 PM CDT Retinal detachment Eduardo Craven MD OPH ULTRASOUND Final Resu lt Performing Organization Address [facility]/ZIP Co de Phone Number [facility] OPHTHALMOLOGY ORDERS * EYE DROPS (12/16/2024 2:38 PM CDT) Narrative [facility] - 12/16/2024 2:38 PM CDT Medications Eye Drops: 1 Drop phenylephrine 2.5 % Route: Topical ND: 01637-591-33, Lot: [id number], Expiration date: 08/21/2025 1 Drop proparacaine 0.5 % Route: Topical NDC: 12708-838-23, Lot: [id number], Expiration date: 07/21/2026 1 Drop tropicamide 1 % Route: Topical 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 [place] [address] * OCT, RETINA - OU - BOTH EYES (12/16/2024 1:53 PM CDT) Narrative [facility] OPHTHALMOLOGY ORDERS - 12/16/2024 1:53 PM CDT Right Eye Quality was good. Left Eye Quality was good. Notes Optical Coherence Tomography ordered to evaluate the status of the macula: Right Eye: no view Left Eye: Good contour, no fluid.' Eduardo Craven MD OPHTH TOMOGRAPHY Final Resu lt Performing Organization Address [facility] de Phone Number [facility] OPHTHALMOLOGY ORDERS * (ABNORMAL) DRUG SCREEN, URINE (12/12/2024 6:02 PM CDT) AMPHETAMINE QUAL, URINE Negative Negative 12/12/2024 6:53 PM CDT [facility] BARBITURATE QUAL, URINE Negative Negative 12/12/2024 6:53 PM CDT [facility] BENZODIAZEPINE QUAL, URINE Negative Negative 12/12/2024 6:53 PM CDT [facility] COCAINE QUAL URINE Negative Negative 12/12/2024 6:53 PM CDT [facility] OPIATE QUAL, URINE Presumptive Positive(A) Negative 12/12/2024 6:53 PM CDT [facility] CANNABINOIDS QUAL, URINE Negative Negative 12/12/2024 6:53 PM CDT [facility] OXYCODONE QUAL, URINE Negative Negative 12/12/2024 6:53 PM CDT [facility] METHADONE QUAL, URINE Negative Negative 12/12/2024 6:53 PM CDT [facility] FENTANYL QUAL, URINE Negative Negative 12/12/2024 6:53 PM CDT [facility] CREATININE, URINE 127.1 29.0 - 226.0 mg/dL 12/12/2024 6:53 PM CDT [facility] Comment:Reference Range vari es with fluid intake and diet. Urine URINE SPECIMEN OBTAINED BY CLEAN CATCH PROCEDURE / Unknown Collection / Unknown 12/12/2024 6:02 PM CDT 12/12/2024 6:10 PM CDT Narrative [facility] - 12/12/2024 6:53 PM CDT This [...] Otis Chen MD URINE ORDERABLES Final Result [facility] CLIA # [id number] [address] [place] [address] * CT HEAD WO CONTRAST (12/12/2024 3:11 [...] INTERFACE SYSTEM - 12/12/2024 9:11 PM CDT [facility] Echocardiography Laboratory [address] [place] [address] Transthoracic Echocardiography Patient: Le Diaz Study ID: ECHO COMPLETE - Gender: F : 1965 Age: 59 Room: [facility] Study Date: 12/12/2024 Pt Status: Inpatient Study Time: 12:47:40 PM CSN #: [id number] Ordering:Otis Chen Mold Sander: MONTY Indications and History: Syncope. Summary and [...] (H) dottie values outside specified reference range. [facility] are accredited with the Intersocietal Accreditation Commission - Echocardiography. Prepared and Electronically Authenticated Toni Leija Confirmed 12/12/2024 21:11 Procedure Note Toni Leija MD - 12/12/2024 [facility]ch[facility] [address] [place] [address] Transthoracic Echocardiography Patient: Le Diaz Study ID: ECHOCOMPLETE - Gender: Kingsley : 1965 Age: 59 Room: [facility] Study Date: 12/12/2024 Pt Status: Inpatient Study Time: 12:47:40 PM CSN #: [id number] Ordering:Otis Chen Mold Sander: MONTY Indications and History: Syncope. Summary and [...] (H) dottie values outside specified reference range. [facility] are accredited with theIntersocietal Accreditation [...] See Interpretation IU/mL 12/12/2024 3:50 AM CDT [facility] Blood Venipuncture / Unknown 12/12/2024 3:21 AM CDT 12/12/2024 3:26 AM CDT Narrative [facility] - 12/12/2024 3:50 AM CDT Therapeutic Range: PT/DVT Heparin Protocol 0.3 - 0.7 IU/ml Cardiac Heparin Protocol 0.3 - 0.6 IU/ml The reference range for this test is specific to the anticoagulant and is not appropriate for monitoring patients on a DOAC protocol. Otis Chen MD HEMATOLOGY ORDERABLES Final Res ult Performing Organization Address [facility] Co de Phone Number [facility] CLIA # [id number] [facility] [address] [address] * PHOSPHORUS (12/11/2024 5:44 AM CDT) Only the most recent of2 resultswithin the time period is included. Pathologist [facility] PHOSPHORUS 2.7 2.5 - 4.5 mg/dL 12/11/2024 6:43 AM CDT [facility] Blood Venipuncture / Unknown 12/11/2024 5:44 AM CDT 12/11/2024 6:03 AM CDT Otis Chen MD CHEMISTRY ORDERABLES Final Resu lt [facility] CLIA # [id number] [address] [place] [address] * CARDIAC EVENT MONITOR (12/07/2024 1:50 PM CDT) Narrative [facility] - 12/07/2024 1:50 PM CDT Echo Tapia MD 12/07/2024 1:50 PM Baseline: sinus 73 bpm Only tracing us James Lee MD CARDIAC SERVICES ORDERABLES Fin al Result [facility] CLIA [id number] [address] [facility] [address] [place] [address], * MRI LUMBAR WO CONTRAST (11/30/2024 5:44 [...] ordering and performing treatments and interventions Cassius Sanderosn MD PROCEDURE/MINOR S URGICAL ORDERABLES Final Result * (ABNORMAL) HEMOGLOBIN A1C (10/31/2024 3:08 AM CDT) HEMOGLOBIN A1C 10.4(H) <=5.6 % 11/02/2024 10:13 AM CDT [facility] [employer] [facility] EST. AVG GLUCOSE, A1C 252 mg/dL 11/02/2024 10:13 AM CDT [facility] Blood Venipuncture / Unknown 10/31/2024 3:08 AM CDT 10/31/2024 3:13 AM CDT Peggy [facility] - 11/02/2024 10:13 AM CDT HGB A1C INTERPRETATION NORMAL: <5.7% PRE-DIABETES: 5.7 - 6.4% DIABETES: 6.5% OR GREATER Danyell Dewitt MD CHEMISTRY ORDERABLES Final Result [facility] CLIA # [id number] [address] [place] [address] * (ABNORMAL) LIPID PANEL (02/19/2024 5:29 AM RETURNS CLERK) CHOLESTEROL 188 <200 mg/dL 02/19/2024 10:25 AM [facility] TRIGLYCERIDE 104 <150 mg/dL 02/19/2024 10:25 AM [facility] HDL 36(L) 40 - 59 mg/dL 02/19/2024 10:25 AM [facility] LDL CALCULATED 131(H) <100 mg/dL 02/19/2024 10:25 AM [facility] NON-HDL CHOLESTEROL 152(H) <130 mg/dL 02/19/2024 10:25 AM [facility] Blood Venipuncture / Unknown 02/19/2024 5:29 AM RETURNS CLERK 02/19/2024 5:34 AM RETURNS CLERK [facility] - 02/19/2024 10:25 AM RETURNS CLERK TOTAL CHOLESTEROL mg/dL Desirable <200 Borderline high [...] ORDERABLES Final R esult Performing Organization Address [facility] Co de Phone Number [facility] CLIA # [id number] [address] [address] [place] [address] * MICROALBUMIN/CREATININE RATIO, RANDOM UR (02/26/2023 3:01 PM RETURNS CLERK) Creatinine, Urine 199 20 - 275 mg/dL [facility] MICROALBUMIN, URINE 1.9 See Note: mg/dL [facility] Comment: Reference Range: Reference Range [...] category. FASTING:UNKNOWN FASTING: UNKNOWN Test Performed at: [facility] [address] [place] [address] Emily Dumont MD Urine URINE SPECIMEN OBTAINED BY CLEAN CATCH PROCEDURE / Unknown 02/26/2023 3:01 PM RETURNS CLERK 02/26/2023 3:02 PM RETURNS CLERK Ryann Burk MD URINE ORDERABLES Final Result Performing Organization Address [facility]/ZIP Co de Phone Number [facility] [phone] [employer] [address] [address] [address] * CERV/VAG CYTO SCREEN PAP W/HPV (01/06/2023 12:00 AM CDT) CLINICAL INFORMATION [email or web address] Comment:None given LAST MENSTRUAL PERIOD [facility] [place] Comment:NONE GIVEN PREV PAP: [facility] [place] Comment:NONE GIVEN PREV BX: [facility] [place] Comment:NONE GIVEN SOURCE [facility] [place] Comment:ENDOCERVIX ADEQUACY: [employer] Comment: Satisfactory for evaluation. Endocervical/transformation zone component present. Age and/or menstrual status not provided PAP INTERP [facility] [place] Comment: Cytology Results: Negative for intraepithelial lesion or malignancy. COMMENT (PAP TEST) [employer] [facility] [place] Comment: This Pap test has been evaluated with computer assisted technology. PARTICLE BOARD SUPERVISOR: Irving est [employer] MeisterBrianne Gasac Comment: BKA, CT(ASCP) CT screening location: [place] [address] [place] [address] EXPLANATORY NOTE [facility] [place] Comment: EXPLANATORY NOTE: The Pap is a [...] information. HPV E6/E7 Not Detected Not Detected [employer] Comment: Methodology: Laborer Tin Can-Mediated Amplification This assay detects E6/E7 viral messenger RNA (mRNA) from 14 high-risk HPV types (16,18,31,33,35,39,45,51,52,56,58,59,66,68). Cervical sources are required for HPV testing. If a vaginal source from a patient who has had a total hysterectomy with removal of cervix was submitted, please contact the testing laboratory for alternative testing options. For additional information, please refer to http://education.BidModo/faq/HQW813q9 (This link if provided for information/ educational purposes only.) Test Performed at: [facility] [address] [place] [address] Emily TRAN Genital SWAB OF ENDOCERVIX / Unknown 01/06/2023 01/08/2023 10:07 AM CDT us Ryann Burk MD PATHOLOGY/CYTOLOGY ORDERABLES nal Result [facility] [phone] [facility] [address] [address] [phone] * MAMMO DIAGNOSTIC UNI RIGHT W OR [...] Autogenerated Problem 01/25/2025 Insurance [place] * Guarantor: LE DIAZ Account Type Relation to Patient Date of Phone Billing Address Personal/Family [address] [place] [address] RX INFOCROSSING Medicaid [place]ID [place] Member Subscriber Plan / Payer (Ef fective 2020-Present) Name:Le Diaz Relation to Subscriber:Self Name:Le Diaz Payer ID:Not on file Group ID:Not on file Type:Medicaid Address: [address] [place] [address] Advance Directives For more information, please contact: [phone] Documents on File Type Date Recorded Patient Screen Maker Expl anation Advance Directive Living Will 12/14/2024 [...] 1:42 AM 12/19/2024 3:03 PM Care Teams Endoscopic Technician Relationship Specialty Start Date End Date Marcia Claros MD [address] [place] [address] [phone] PCP - General Family Practice 02/23/25
--- OUTSIDE RECORDS SUMMARY | 2025-02-27 04:02 | XMS_ITS | Encounter Summary ---
Author Organization [facility] Address [address] Gonzalez: Epic Prelude ADT [place] [address] Care Team Providers Care Hoop Puncher Name Role Phone Marcia Claros MD Primary Care Provider [phone] Encounter Details Date Type Department Care Team (Latest Contact Info) Description 02/26/2025 Travel Social History Tobacco Use Types Packs/Day [...] How often do you attend [facility] or religion services? 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 No 2024 Housing Stability [...] on file Legal Sex Female 11:49 PM BUCKLE SEWER MACHINE Gender Identity Not on file Sexual Orientation Not on file documented as of this encounter Plan of Treatment Upcoming Encounters Date Type Department Care Team (Latest Contact Info) Description 03/22/2025 10:30 AM BUCKLE SEWER MACHINE Hospital Encounter [facility] [address] [place] [phone] Kumar Ochoa MD [address] [facility] [address] [place] [address] Combined forms of age-related cataract of right eye 08/24/2025 2:20 PM CDT Office Visit [facility] [address] [phone] Marcia Claros MD [address] [phone] Scheduled Procedures Name Priority Associated Diagnoses Date/Ti me CATARACT EXTRACTION IOL INSERTION FEMTO LASER ASSISTED LEVEL 1 Combined forms of age-related cataract of right eye Right retinal detachment 03/22/2025 7:35 AM BUCKLE SEWER MACHINE PARS PLANA VITRECTOMY WITH LASER Combined forms of age-related cataract of right eye Right retinal detachment 03/22/2025 7:35 AM BUCKLE SEWER MACHINE EYE PLACEMENT OF SILICONE OIL Combined forms of age-related cataract of right eye Right retinal detachment 03/22/2025 7:35 AM BUCKLE SEWER MACHINE documented as of this encounter Goals Goal [...] R/O COVID-19 02/26/2025 02/26/2025 02/26/2025 5:18 PM BUCKLE SEWER MACHINE documented as of this encounter Care Teams Hoop Puncher Relationship Specialty Start Date End Date Marcia Claros MD [address] [place] [phone] PCP - General Family Practice 02/23/25 documented as of this encounter
--- OUTSIDE RECORDS SUMMARY | 2025-02-27 04:03 | XMS_ITS | Patient Health Record ---
Author Organization [facility] Address [address] [place] [address] Care Team Providers Care Java Web Services Developer Name Role Phone Delta Wade Primary Care Provider UnavailJose Cruz Tomas Unavailable [phone] Masoud Bello Unavailable [phone] Acacia Gaines Unavailable [phone] Chantelle Yee Unavailable [phone] Hannah Rai Unavailable [phone] Allergies Allergen (clinical drug ingredient) Drug/Non Drug Allergy documented on EMR Reaction Allergy Type Onset Date Status Compazine Unknown Drug Allergy Active ketorolac Ketorolac Unknown Drug Allergy Active Results Component Value Reference Range Notes Schedule Confirmation Reviewed date:07/03/2024 04:23:35 PM Interpretation: Performing Lab: Notes/Report: CT Chest ION Endoluminal Prothrombin Time 60130 Reviewed date:05/16/2024 05:08:19 PM Interpretation: Performing Lab: Notes/Report: 3510 @ 0021 trop 2nd@ 3510 @ 0021 ProTime 10.8 9.1-11.9 SEC Normal Range: 9.1-11.9 INR 1.02 .90-1.20 Therapeutic Range: 2.0-3.0 Therapaeutic Range for heart valve replacement: 2.5-3.50 Partial Thromboplastin Time 49250 Reviewed date:05/16/2024 05:08:19 PM Interpretation: Performing Lab: [...] date:05/16/2024 05:08:19 PM Interpretation: Performing Lab: Notes/Report: ozl=[id number]=iSite Schedule Confirmation Reviewed date:07/13/2024 07:16:00 PM Interpretation: Performing Lab: Notes/Report: CT Chest ION Endoluminal Schedule Confirmation Reviewed date:07/04/2024 04:08:48 PM Interpretation: Performing Lab: Notes/Report: CT Chest ION Endoluminal zzzHeart Cath Lt poss PTCA Reviewed date:05/16/2024 05:08:19 PM Interpretation: Performing Lab: Notes/Report: See Below For Report This report was dictated outside of the [employer] system. trop 2nd@ 205 3510 @ 0021 Read See Below For Report Schedule Confirmation Reviewed date:07/03/2024 04:23:35 PM Interpretation: Performing Lab: Notes/Report: CT Chest ION Endoluminal Reason For Referral Reason COPD; 06/07: 1 wk pe r Eula 06/07: Left Message SCHEDULED 06/20 @ 2:10 PM Diagnosis 1 Chronic obstructive pulmonary disease, unspecified (J44.9) Referring Provider First Name ER Referring Provider Last Name Critical access hospital Referring Provider Speciality Emergency Medicine Referred Organization [facility] Referred Provider Jose Cruz Forde Referred Address [address] [place] [address] [address],[place], [place],[address], Referred Provider Specialty Pulmonary Di seases General [...] Date Status Comme nts Influenza (whole), CPT 82350 Inactive Unknown 01/04/2024 Administered Social History Tobacco [...] W/U Status Risk Notes Problem Tobacco user (025505680) Nicotine dependence, cigarettes, in remission (F17.211) Active confirmed Problem Ischemic cardiomyopathy (519533397) Ischemic cardiomyopathy (I25.5) Active confirmed Problem Chronic obstructive pulmonary disease (12169465) Chronic obstructive pulmonary disease, unspecified (J44.9) Active confirmed Problem Gastro-esophageal reflux disease without esophagitis (911101861) Gastro-esophageal reflux disease without esophagitis (K21.9) Active confirmed Problem C-reactive protein abnormal (513077558) Elevated C-reactive protein (CRP) (R79.82) Active confirmed Problem Solitary pulmonary nodule (754309667) Solitary pulmonary nodule (R91.1) Active confirmed Problem Long-term current use of anticoagulant (973238584) emt intermediate (current) use of anticoagulants (Z79.01) Active confirmed Problem 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 (805325745371698) Arteriosclerosis of coronary artery (I25.10) Active confirmed Problem History of placement of stent for coronary artery disease (situation) (695830086) H/O heart artery stent (Z95.5) Active confirmed Problem Long-term current use of anticoagulant (315874283) Anticoagulated (Z79.01) Active confirmed Problem Angina (456068610) 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) Active confirmed Problem Acute non-ST segment elevation myocardial infarction (570167969) Non-ST elevated myocardial infarction (I21.4) Active confirmed Problem History of pulmonary embolus (779228046) Hx of pulmonary embolus (Z86.711) Active confirmed Problem Coronary stent patent (032673331) Coronary stent patent (Z95.5) Active confirmed Problem Chronic respiratory failure (92275008) Chronic hypoxic respiratory failure (J96.11) Active confirmed [...] Encounter Location Date Provider Diagnosis [facility] [address] [place] [address] [place] [address] 06/20/2024 Jose Cruz Forde Solitary pulmonary nodule R91.1 ; Chronic hypoxic respiratory failure J96.11 ; Nicotine dependence, cigarettes, in remission F17.211 and Shortness of breath R06.02 [facility] [address] [place] [address] [place] [address] 06/30/2024 Jose Cruz Forde [facility] [place] [address] [place] [address] 06/06/2024 Masoud Bello Other fracture of unspecified [...] remission (ICD-10 - F17.211) Patient smoked a fciu-fey-eyo for 45 years. She has been abstinent [...] Test Test Name Order Date Lumbosacral Spine AP/Lat-40560 5 PFT with FRC: (NO TGV) 06/20/2024 CT Chest ION Endoluminal-96477 5 Insurance Providers Payer Name Payer Address Payer Phone Subscriber Number Group Number Insured Name Patient Relationship to Insured Coverage Start Date Coverage End Date [place] [address] [place] [address] [id number] GIANFRANCO DIAZ Self - patient is the [...]
--- OUTSIDE RECORDS SUMMARY | 2025-02-27 04:05 | XMS_ITS | Encounter Summary ---
Author Organization [facility] Address [address] [place] [address] Care Team Providers Care Back Sewer Name Role Phone Unavailable Primary Care Provider Unavailabl e Reason for Visit * Reason Onset Date Comments Surgery Talk 02/20/2025 Called patient a nd discussed rescheduling her surgery combo to a later date; patient became upset, used profanity, and then hung up. Encounter Details Date Type Department Care Team ([facility] Contact Info) Description 02/20/2025 Telephone [facility] Ophthalmology [place] [address] [address] Kumar Ochoa MD [address] [address] Surgery Talk (Called patient and [...] How often do you attend chur or judaism services? 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 No 2024 Housing Stability Answer [...] on file Legal Sex Female 11:49 PM IT INFRASTRUCTURE SPECIALIST Gender Identity Not on file Sexual Orientation Not on file documented as of this encounter Miscellaneous Notes * Telephone Encounter - Windy Dubois - 02/20/2025 1:36 PM IT INFRASTRUCTURE SPECIALIST Called patient and discussed rescheduling her surgery combo to a later date; patient became upset, used profanity, and then hung up. INFRASTRUCTURE SPECIALIST documented in this encounter Plan of Treatment Upcoming Encounters Date Type Department Care Team (Latest Contact Info) Description 03/22/2025 10:30 AM IT INFRASTRUCTURE SPECIALIST Hospital Encounter [facility] Surgery [place] [address] [place] [address] Kumar Ochoa MD [address] [facility] [address] [place] [address] Combined forms of age-related cataract of right eye 08/24/2025 2:20 PM CDT Office Visit [address] [phone] Marcia Claros MD [address] [phone] Scheduled Procedures Name Priority Associated Diagnoses Date/Ti me CATARACT EXTRACTION IOL INSERTION FEMTO LASER ASSISTED LEVEL 1 Combined forms of age-related cataract of right eye Right retinal detachment 03/22/2025 7:35 AM IT INFRASTRUCTURE SPECIALIST PARS PLANA VITRECTOMY WITH LASER Combined forms of age-related cataract of right eye Right retinal detachment 03/22/2025 7:35 AM IT INFRASTRUCTURE SPECIALIST EYE PLACEMENT OF SILICONE OIL Combined forms of age-related cataract of right eye Right retinal detachment 03/22/2025 7:35 AM IT INFRASTRUCTURE SPECIALIST documented as of this encounter Goals Goal [...]
--- OUTSIDE RECORDS SUMMARY | 2025-02-27 04:05 | XMS_ITS | Encounter Summary ---
Author Organization [facility] Address [address] [place] [address] Care Team Providers Care Facility Administrator Name Role Phone Marcia Claros MD Primary Care Provider +1- [phone] Reason for Visit * Reason Comments Wants Appointment Encounter Details Date Type Department Care Team ([facility] st Contact Info) Description 02/22/2025 Telephone [facility] Family Medicine [place] [address] [facility] [address] [place] [address] Ryann Burk MD [address] 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 No 2024 Housing Stability Answer Date Recorded Do you worry you won t have a steady place to sleep or struggle to pay rent or mortgage? No 01/21/2025 Utility Needs Answer Date Recorded Do you have difficulty payin g for utility costs ([employer], water or gas bills)? No 01/21/2025 Medication [...] on file Legal Sex Female 11:49 PM CHIEF SECURITY OFFICER Gender Identity Not on file Sexual Orientation Not on file documented as of this encounter Miscellaneous Notes * Telephone Encounter - Harika Michael - 02/22/2025 9:06 AM CST Copied from [facility] #[id number]. Topic: CPA Information Request - Appointment/Location Information [...] chance to save her. Please call at [phone] F SECURITY OFFICER documented in this encounter Plan of Treatment Upcoming Encounters Date Type Department Care Team (Latest Contact Info) Description 03/22/2025 10:30 AM CHIEF SECURITY OFFICER Hospital Encounter [facility] [address] [place] [phone] Kumar Ochoa MD [address] [facility] [address] [place] [address] Combined forms of age-related cataract of right eye 08/24/2025 2:20 PM CDT Office Visit [address] [address] Marcia Claros MD [address] [address] Scheduled Procedures Name Priority Associated Diagnoses Date/Ti me CATARACT EXTRACTION IOL INSERTION FEMTO LASER ASSISTED LEVEL 1 Combined forms of age-related cataract of right eye Right retinal detachment 03/22/2025 7:35 AM CHIEF SECURITY OFFICER PARS PLANA VITRECTOMY WITH LASER Combined forms of age-related cataract of right eye Right retinal detachment 03/22/2025 7:35 AM CHIEF SECURITY OFFICER EYE PLACEMENT OF SILICONE OIL Combined forms of age-related cataract of right eye Right retinal detachment 03/22/2025 7:35 AM CHIEF SECURITY OFFICER documented as of this encounter Goals [...] R/O COVID-19 02/26/2025 02/26/2025 02/26/2025 5:18 PM CHIEF SECURITY OFFICER documented as of this encounter Care Teams Facility Administrator Relationship Specialty Start Date End Date Marcia Claros MD [address] [phone] PCP - General Family Practice 02/23/25 documented as of this encounter
--- OUTSIDE RECORDS SUMMARY | 2025-02-27 04:05 | XMS_ITS | Encounter Summary ---
Author Organization [facility] Address [address] [place] [address] Care Team Providers Care Domestic Violence Advocate Name Role Phone aMrcia Claros MD Primary Care Provider +1- [phone] Reason for Visit * Reason Comments Hospital Follow Up Encounter Details Date Type Department Care Team ([facility] st Contact Info) Description 05/13/2024 Telephone [facility] Family Medicine [place] [address] [facility] [address] [place] [address] Kay Lima, WEIGHTER [address] [facility] [address] [place] [address] Hospital Follow Up Social History [...] on file Legal Sex Female 11:49 PM PHONE BANKER Gender Identity Not on file Sexual Orientation Not on file documented as of this encounter Miscellaneous Notes * Telephone Encounter - Danyell Rashidghann - 05/13/2024 12:30 PM PHONE BANKER Called pt back. Could not leave voicemail. If patient calls back please schedule for hospital follow up appointment for the next opening spot. Can be vv if patient cannot travel to clinic. E BANKER * Telephone Encounter - Gypsy Gerber - 05/13/2024 12:02 PM CST Copied from [facility] #[id number]. Topic: Reschedule/Cancel Appointment/Late Arrival >> May 13, [...] of hospital discharge? 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 [facility] E BANKER documented in this encounter Plan of Treatment Upcoming Encounters Date Type Department Care Team (Latest Contact Info) Description 03/22/2025 10:30 AM PHONE BANKER Hospital Encounter [facility] Surgery [place] [address] [place] [phone] Kumar Ochoa MD [address] [facility] [address] [place] [address] Combined forms of age-related cataract of right eye 08/24/2025 2:20 PM CDT Office Visit [address] [address] Marcia Claros MD [address] [place] [phone] Scheduled Procedures Name Priority Associated Diagnoses Date/Ti me CATARACT EXTRACTION IOL INSERTION FEMTO LASER ASSISTED LEVEL 1 Combined forms of age-related cataract of right eye Right retinal detachment 03/22/2025 7:35 AM PHONE BANKER PARS PLANA VITRECTOMY WITH LASER Combined forms of age-related cataract of right eye Right retinal detachment 03/22/2025 7:35 AM PHONE BANKER EYE PLACEMENT OF SILICONE OIL Combined forms of age-related cataract of right eye Right retinal detachment 03/22/2025 7:35 AM PHONE BANKER documented as of this encounter Goals Goal [...] R/O COVID-19 05/13/2024 05/13/2024 05/14/2024 4:15 AM PHONE BANKER R/O Respiratory 06/30/2024 06/30/2024 06/30/2024 1 0:36 [...] 01/17/2025 01/17/2025 01/17/2025 1 1:46 PM CDT R/O COVID-19 02/26/2025 02/26/2025 02/26/2025 5:18 PM PHONE BANKER documented as of this encounter Care Teams Domestic Violence Advocate Relationship Specialty Start Date End Date Marcia Claros MD [address] [place] [phone] PCP - General Family Practice 02/23/25 documented as of this encounter
--- OUTSIDE RECORDS SUMMARY | 2025-02-27 04:05 | XMS_ITS | Encounter Summary ---
Author Organization [facility] Address [address] [place] [address] Care Team Providers Care Boiler House Operator Name Role Phone Marcia Claros MD Primary Care Provider +1- [phone] Encounter Details Date Type Department Care Team ([facility] st Contact Info) Description 06/16/2024 Telephone [facility] Ophthalmology [address] [place] [address] [place] [address] [place] [phone] Eduardo Craven MD [address] [place] [address] [place] [address] Social History Tobacco Use Types Packs/Day [...] file Legal Sex Female 11:49 PM FOOD COUNSELOR Gender Identity Not on file Sexual Orientation [...] (Latest Contact Info) Description 03/22/2025 10:30 AM FOOD COUNSELOR Hospital Encounter [facility] [address] [place] [phone] Kumar Ochoa MD [address] [facility] [address] [place] [address] Combined forms of age-related cataract of right eye 08/24/2025 2:20 PM CDT Office Visit [facility] [address] [address] Marcia Claros MD [address] [phone] Scheduled Procedures Name Priority Associated Diagnoses Date/Ti me CATARACT EXTRACTION IOL INSERTION FEMTO LASER ASSISTED LEVEL 1 Combined forms of age-related cataract of right eye Right retinal detachment 03/22/2025 7:35 AM FOOD COUNSELOR PARS PLANA VITRECTOMY WITH LASER Combined forms of age-related cataract of right eye Right retinal detachment 03/22/2025 7:35 AM FOOD COUNSELOR EYE PLACEMENT OF SILICONE OIL Combined forms of age-related cataract of right eye Right retinal detachment 03/22/2025 7:35 AM FOOD COUNSELOR documented as of this encounter Goals Goal [...] R/O COVID-19 02/26/2025 02/26/2025 02/26/2025 5:18 PM FOOD COUNSELOR documented as of this encounter Care Teams Boiler House Operator Relationship Specialty Start Date End Date Marcia Claros MD [address] [place] [phone] PCP - General Family Practice 02/23/25 documented as of this encounter
--- OUTSIDE RECORDS SUMMARY | 2025-02-27 04:06 | XMS_ITS | CCD ---
Author Name Interface, [employer] Address [address] [facility] [address] [place] [address] [facility] Address [address] [place] [address] Care Team Providers Care Primary Operator Name Role Phone Anika VALLADARES, Allen [...] 1.0 CAPSULE (S) QHS 2014 active 05/01 Quetiapi ne Oral PO 1.0 TABLET( S) bid 2014 active 05/01 Naproxen Oral PO 1.0 TABLET( S) BID PRN 2014 active 05/01 Lorazepa m Oral PO 1.0 TABLET( S) TID PRN nausea 2014 active 05/01 Oxycodon e-Acetam inophen Oral 5 mg-325 mg PO 1.0 TABLET( S) Q12H PRN pain 2014 active 05/01 Metoprol ol Oral (Tartrat e) PO 25.0 MG BID 2014 active Problems Diagnosis Status Date of Diagnosis Resolution Date Hemochromatosis (disorder) Active Social History Date Name Value 02/26/2015 Sex Female
--- OUTSIDE RECORDS SUMMARY | 2025-02-27 04:06 | XMS_ITS | Encounter Summary ---
Author Organization [facility] Address [address] [place] [address] Care Team Providers Care Oil Scout Name Role Phone Marcia Claros MD Primary Care Provider +1- [phone] Encounter Details Date Type Department Care Team (Latest Contact Info) Description 01/05/2025 Results Follow-Up [facility] Emergency Department [address] [place] [address] Ayana Roman, RN BLOOD CULTURE, [...] often do you attend chur ch or mandaen services? More than 4 times per year [...] worry about transportation for future doctor visits, pickle maker medication, etc.? Prefer not to answer 01/07/2025 [...] on file Legal Sex Female 11:49 PM SOLE BUFFER Gender Identity Not on file Sexual Orientation Not on file documented as of this encounter Plan of Treatment Upcoming Encounters Date Type Department Care Team (Latest Contact Info) Description 03/22/2025 10:30 AM SOLE BUFFER Hospital Encounter [facility] [address] [facility] [address] [place] [address] Kumar Ochoa MD [address] [facility] [address] [place] [phone] Combined forms of age-related cataract of right eye 08/24/2025 2:20 PM CDT Office Visit [facility] Medicine [address] [phone] Marcia Claros MD [address] [address] Scheduled Procedures Name Priority Associated Diagnoses Date/Ti me CATARACT EXTRACTION IOL INSERTION FEMTO LASER ASSISTED LEVEL 1 Combined forms of age-related cataract of right eye Right retinal detachment 03/22/2025 7:35 AM SOLE BUFFER PARS PLANA VITRECTOMY WITH LASER Combined forms of age-related cataract of right eye Right retinal detachment 03/22/2025 7:35 AM SOLE BUFFER EYE PLACEMENT OF SILICONE OIL Combined forms of age-related cataract of right eye Right retinal detachment 03/22/2025 7:35 AM SOLE BUFFER documented as of this encounter Goals Goal [...] R/O COVID-19 02/26/2025 02/26/2025 02/26/2025 5:18 PM SOLE BUFFER Assessment Noted Time PHQ-9 Depression Total Score: 1 01/05/20 12:49 PM CDT documented as of this encounter Care Teams Oil Scout Relationship Specialty Start Date End Date Marcia Claros MD [address] [place] [phone] PCP - General Family Practice 02/23/25 documented as of this encounter
--- NOTE | 2025-02-27 04:07 | ECG_ITS ---
[employer] Test Date: 2025-02-27 Pat Name: Le Barnhart Department: Room: Gender: Female [employer]: : 1965 Requested By: Sergio Queen Order Number: [id number] Lopez MD: Cassius Monterroso M.D. Measurements Intervals [place] Rate: 103 P: 244 [place]: 130 QRS: 44 QRSD: 92 T: 6 QT: 352 QTc: 462 Interpretive Statements ECTOPIC ATRIAL TACHYCARDIA VERSUS JUNCTIONAL TACHYCARDIA NONSPECIFIC T-WAVE ABNORMALITY ABNORMAL RHYTHM ECG Compared to ECG 02/26/2025 06:30:24 HEART RATE HAS MILDLY INCREASED T-wave abnormality still present Electronically Signed On 03-01-2025 22:26:00 INVESTIGATIONS DIRECTOR by Cassius Monterroos M.D. [email or web address]
--- NOTE | 2025-02-27 04:23 | XRR_ITS ---
PROCEDURE INFORMATION: Exam: XR Chest Exam date and time: 02/27/2025 4:30 AM Age: 59 years old Clinical indication: Shortness of breath; Additional info: SOB TECHNIQUE: Imaging protocol: Radiologic exam of the chest. Views: 1 view. COMPARISON: CR XR chest 1V portable [id number] 01/15/2025 2:05 PM FINDINGS: Lungs: Unremarkable. No consolidation. Pleural spaces: Unremarkable. No pleural effusion. No pneumothorax. Heart/Mediastinum: Borderline cardiac enlargement. Bones/joints: Lower cervical spine ACDF plate is present. Negative for acute thoracic fractures. XR/XR chest 1V portable [id number] IMPRESSION: Negative for focal pulmonary disease.
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
--- NOTE | 2025-02-27 05:24 | PC.NURSE ---
PT IS REFUSING TO PUT OXYGEN BACK ON.
[2025-02-27] MEDS: FUROsemide 10 mg/mL SDV 10mL 60 MG XX (05:26)
[2025-02-27] MEDS: morphine 4 mg/mL SDV 1 mL IM (05:27)
== END 2025-02-27 05:58 | disposition home or self-care (01) ==
PROVIDERS: Emergency Provider Emergency Medicine
DX: J44.9 Chronic obstructive pulmonary disease, unspecified (principal); I11.0 Hypertensive heart disease with heart failure; I50.32 Chronic diastolic (congestive) heart failure; Z79.01 Long term (current) use of anticoagulants; Z79.4 Long term (current) use of insulin; Z79.85 Long-term (current) use of injectable non-insulin antidiabetic drugs; Z87.891 Personal history of nicotine dependence; E11.9 Type 2 diabetes mellitus without complications; I25.110 Atherosclerotic heart disease of native coronary artery with unstable angina pectoris
CPT/HCPCS: 71045; 93005; 94640; 96372; 99284; J1938; J2270; J9999

== ENCOUNTER 2025-03-02 03:36 | Emergency (ER) | payer MEDICAID, SELFPAY ==
--- OUTSIDE RECORDS SUMMARY | 2024-02-03 05:00 | XMS_ITS ---
Author Organization [facility] Address [address] [place] [phone] Care Team Providers Care Professor Of Literacy Name Role Phone ( [facility] ), PHYSICIAN NOT IDENTIFIED Primary Care Provider Unavailable Kyler Martin Unavailable [phone] REASON FOR VISIT wants bottom dentures needs slide - Eugenia if needed Social History Sex Assigned At : Social History Observation Description Sex Assigned At Female Encounters Encounter Location Date Provider Diagnosis [address] [place] [address] Dental Clinic [address] [place] [phone] 02/03/2024 Kyler Martin Plan Of Treatment No Information Progress Notes * Zhang DIAZaDOB:1965 (59 yo F)Acc No.[id number]:02/03/2024 Patient: Le Colindres Provider: Tawanda Martin DMD :1965 A ge:58 Y S ex:Female Date:02/03/2024 Address:[address] [place], [place] [id number] Pcp:PHYSICIAN NOT IDENTIFIED ( [facility] ) Subjective: * Chief Complaints: * w ants bottom dentures needs slide - Eugenia if needed Billing Information: * Procedure Codes: * Electronic signature of Antelmo Martin DMD on 03/02/2025 at 03:47 AM MELT HOUSE DRAG OPERATOR Sign off status: Pending * Provider: Tawanda Martin DMD Date: 04/04/2023 Generated for Mani contreras/Moshe/eTransmitting on: 05/03/2024 03:47 AM MELT HOUSE DRAG OPERATOR
--- OUTSIDE RECORDS SUMMARY | 2024-04-27 07:00 | XMS_ITS ---
Author Organization [facility] Address [address] [place] [address] Care Team Providers Care Sports Commentator Name Role Phone Delta Wade Primary Care Provider Jose Cruz Harvey Unavailable [phone] Hannah Rai Unavailable [phone] REASON FOR VISIT S/P [facility], Jahaira 04/06/24 Encounters Encounter Location Date Provider Diagnosis [facility] [address] [place] [id number] 04/27/2024 Hannah Rai Non-ST elevated myocardial infarction I21.4 ; Arteriosclerosis of coronary artery I25.10 ; Anticoagulated Z79.01 ; History of embolism Z86.718 and H/O heart artery stent Z95.5 Assessments Encounter Date Diagnosis (ICD Code) Assessment Notes Treatment Notes Treatment Clinical Notes Section Notes 04/27/2024 Non-ST elevated myocardial infarction (ICD-10 - I21.4) 04/27/2024 Arteriosclerosis of coronary artery (ICD-10 - I25.10) 04/27/2024 Anticoagulated (ICD-10 - Z79.01) 04/27/2024 History of embolism (ICD-10 - Z86.718) 04/27/2024 H/O heart artery stent (ICD-10 - Z95.5) Plan Of Treatment No Information History and Physical Notes * HPI (History of Present Illness) Category Sub-Category Detail Notes Category Not es Provider Note This is a 58-year-old female with a history of COPD, type 2 diabetes, DVTs, history of multiple MIs, history of multiple cardiac stents, CHF, pulmonary emboli, history of splenectomy, history of right mastectomy, and ischemic cardiomyopathy. last cardiac cath was done on April 05, [address] Nunez with the impression being Mild left ventricular dysfunction, previous inferior wall myocardial infarction, but all patent stents in left anterior descending and right coronary artery with no Den[place] lesions. She was on warfarin therapy for prophylaxis against a previous pulmonary embolus and had been noncompliant with that. Warfarin was restarted importance was reiterated of taking her medications correctly. Her last echocardiogram was February 08, 2024 interpretation left ventricular systolic function is mildly reduced There is a regional wall motion abnormality is specified new line there is trace mitral regurgitation Left ventricular function is estimated to be 40 to 45% There is akinesis of the inferior lateral wall Progress Notes * GIANFRANCO DIAZDOB: 6 (59 yo F)Acc No.[id number]:04/27/2024 Patient: Jahaira ZORAIDAGIANFRANCO KANG Provider: Tawanda Rai APN :1965 A ge:58 Y S ex:Female Date:04/27/2024 Address:[address] [place], [place] [phone] Pcp:Delta Wade Subjective: * Chief Complaints: * S /P [facility], J[facility] 04/06/24 * HPI: P heber Note: This is a 58-year-old female with a history of COPD, type 2 diabetes, DVTs, history of multiple MIs, history of multiple cardiac stents, CHF, pulmonary emboli, history of splenectomy, history of right mastectomy, and ischemic cardiomyopathy. l ast cardiac cath was done on April 05, [address] Nunez with the impression being Mild left ventricular dysfunction, previous inferior wall myocardial infarction, but all patent stents in left anterior descending and right coronary artery with no Den[place] lesions. She was on warfarin therapy for prophylaxis against a previous pulmonary embolus and had been noncompliant with that. Warfarin was restarted importance was reiterated of taking her medications correctly. Her last echocardiogram was February 08, 2024 interpretation left ventricular systolic function is mildly reduced There is a regional wall motion abnormality is specified new line there is trace mitral regurgitation Left ventricular function is estimated to be 40 to 45% There is akinesis of the inferior lateral wall. * Surgical History: spleen 05/2023 NSTEMI (non-ST elevated myocardial infarction 1. * Hospitalization/Major Diagno stic Procedure: speen 05/2023 NSTEMI (non-ST elevated myocardial infarction 1. Assessment: * Assessment: 1. N on-ST elevated myocardial infarction - I21.4 2 . A rteriosclerosis of coronary artery - I25.10 3 . A nticoagulated - Z79.01 4 . H istory of embolism - Z86.718 5 . H /O heart artery stent - Z95.5 ? * Electronic signature of Eliu Rai APRN on 03/02/2025 at 03:48 AM TREASURY ACCOUNTANT Sign off status: Pending * Provider: Tawanda Rai APN Date: 0 04/27/2024 Generated for Mani contreras/Moshe/Binta on: 05/03/2024 03:48 AM TREASURY ACCOUNTANT
--- OUTSIDE RECORDS SUMMARY | 2024-05-06 04:30 | XMS_ITS ---
Author Organization [facility] Address [address] [place] [address] Care Team Providers Care Electric Sign Wirer Name Role Phone Delta Wade Primary Care Provider Jose Cruz Harvey Unavailable [phone] Acacia Gaines Unavailable [phone] [facility] Encounters Encounter Location Date Provider Diagnosis [facility] [address] [place] [phone] 05/06/2024 Acacia Gaines Plan Of Treatment No [...] mitral regurgitation. Prior cardiac care was in [place]. She was admitted to the hospital with chest discomfort on April 04 and ruled in for non-ST elevation [place]. Patient was evaluated by Dr. Nunez and [...] GIANFRANCO DIAZ JDOB: 6 (59 yo F)Acc No.[id number]:05/06/2024 Patient: GIANFRANCO GARCIA Provider: Cameron Gaines NP :1965 A ge:58 Y S ex:Female Date:05/06/2024 Address:[address] [place], [place] [phone] Pcp:Delta Wade Subjective: * Chief Complaints: * [...] mitral regurgitation. Prior cardiac care was in [place]. She was admitted to the hospital with chest discomfort on April 04 and ruled in for non-ST elevation [place]. Patient was evaluated by Dr. Nunez and [...] Codes: * Electronic signature of CRIS Ellis, CDL TRUCK DRIVER-C on 03/02/2025 at 03:47 AM AIRCRAFT MECHANIC STRUCTURES Sign off status: Pending * Provider: Cameron Gaines NP Date: 0 05/06/2024 Generated for Mani contreras/Moshe/Adrianitting on: 1 05/03/2024 03:47 AM AIRCRAFT MECHANIC STRUCTURES
--- OUTSIDE RECORDS SUMMARY | 2024-07-08 04:30 | XMS_ITS ---
Author Organization [facility] Address [address] [place] [address] Care Team Providers Care Grinder Set Up Operator Thread Tool Name Role Phone Delta Wade Primary Care Provider Jose Cruz Harvey [phone] Encounters Encounter Location Date Provider Diagnosis [facility] [address] [place] [address] [place] [address] 07/08/2024 Jose Cruz Forde Plan Of Treatment No Information Progress Notes * GIANFRANCO DIAZDOB: [birth year] (59 yo F)Acc No.[id number]:07/08/2024 Patient: Jahaira HANNA GIANFRANCO Page Provider: Abdirahman Forde MD :1965 A ge:58 Y S ex:Female Date:07/08/2024 Address:[address] [place], [place] [phone] Pcp:Delta Wade * Electronic signature of Natasha Forde MD on 03/02/2025 at 03:48 AM TAWER Sign off status: Pending * Provider: Abdirahman Forde MD Date: 0 07/08/2024 Generated for Printi ng/Faxing/eTransmitting on: 1 05/03/2024 03:48 AM TAWER
--- OUTSIDE RECORDS SUMMARY | 2024-07-12 08:00 | XMS_ITS ---
Author Organization [facility] Address [address] [place] [address] Care Team Providers Care Manager Grant Name Role Phone Delta Wade Primary Care Provider Jose Cruz Harvey [phone] REASON FOR VISIT [phone] Encounters Encounter Location Date Provider Diagnosis [facility] [address] [place] [address] [place] [address] 07/12/2024 Jose Cruz Forde Plan Of Treatment No Information Progress Notes * GIANFRANCO DIAZDOB: 6 (59 yo F)Acc No.[id number]:07/12/2024 Pulmonary Function Test Patient: Jahaira GIANFRANCO HANNA Provider: Adbirahman Forde MD :1965 A ge:59 Y S ex:Female Date:07/12/2024 Address:[address] [place], [place] [phone] Pcp:Delta Wade Subjective: * Chief Complaints: * 6 [id number] Billing Information: * Procedure Codes: * Electronic signature of Natasha Forde MD on 03/02/2025 at 03:46 AM SENIOR SUPPORT ENGINEER Sign off status: Pending * Provider: Abdirahman Forde MD Date: 0 07/12/2024 Generated for Mani contreras/Moshe/eTransmitting on: 05/03/2024 03:46 AM SENIOR SUPPORT ENGINEER
--- OUTSIDE RECORDS SUMMARY | 2024-07-12 09:00 | XMS_ITS ---
Author Organization [facility] Address [address] [place] [place] [address] Care Team Providers Care Chin Strap Maker Name Role Phone Delta Wade Primary Care Provider Jose Cruz Harvey [phone] REASON FOR VISIT [phone] Encounters Encounter Location Date Provider Diagnosis [facility] [address] [place] [address] [place] [address] 07/12/2024 Jose Cruz Forde Plan Of Treatment No Information Progress Notes * GIANFRANCO DIAZDOB: [birth year] (59 yo F)Acc No.[id number]:07/12/2024 Progress Notes Patient: Jahaira GIANFRANCO HANNA Provider: Abdirahman Forde MD :1965 A ge:59 Y S ex:Female Date:07/12/2024 Address:[address] [place], [place] [phone] Pcp:Delta Wade Subjective: * Chief Complaints: * 6 [id number] Billing Information: * Procedure Codes: Care Plan Details* * Electronic signature of Natasha Forde MD on 03/02/2025 at 03:47 AM UNIVERSAL WORKER ASSISTED LIVING Sign off status: Pending * Provider: Abdirahman Forde MD Date: 0 07/12/2024 Generated for Sydnii diane/Moshe/eTransmitting on: 1 05/03/2024 03:47 AM UNIVERSAL WORKER ASSISTED LIVING
--- OUTSIDE RECORDS SUMMARY | 2024-07-13 03:30 | XMS_ITS ---
Author Organization [facility] Address [address] [place] [address] Care Team Providers Care Outer Diameter Grinder Tool Name Role Phone ( [facility] ), PHYSICIAN NOT IDENTIFIED Primary Care Provider DR. Dominguez Pate Unavailable [phone] REASON FOR VISIT cavity on lower- Social History Sex Assigned At : Social History Observation Description Sex Assigned At Female Encounters Encounter Location Date Provider Diagnosis [address] [place] [address] Dental Clinic [address] [place] [phone] 07/13/2024 Dominguez Mckay Plan Of Treatment No Information Progress Notes * Zhang DIAZaDOB:1965 (59 yo F)Acc No.[id number]:07/13/2024 Patient: Le Colindres Provider: Jahaira Mckay DDS :1965 A ge:59 Y S ex:Female Date:07/13/2024 Address:[address] [place], [place] [phone] Pcp:PHYSICIAN NOT IDENTIFIED ( [facility] ) Subjective: * Chief Complaints: * C avity on lower- Billing Information: * Procedure Codes: * Electronic signature of DR. Dominguez Mckay DDS on 03/02/2025 at 03:46 AM DENSITOMETER READER Sign off status: Pending * Provider: Jahaira Mckay DDS Date: 0 07/13/2024 Generated for Printi ng/Faxing/eTransmitting on: 1 05/03/2024 03:46 AM DENSITOMETER READER
--- OUTSIDE RECORDS SUMMARY | 2024-07-19 02:00 | XMS_ITS ---
Author Organization [facility] Address [address] [facility] [address] Care Team Providers Care Ice Cream Freezer Helper Name Role Phone Delta Wade Primary Care Provider Jose Cruz Harvey [phone] REASON FOR VISIT [phone] Encounters Encounter Location Date Provider Diagnosis [facility] [address] [place] [address] [place] [address] 07/19/2024 Jose Cruz Forde Plan Of Treatment No Information Progress Notes * GIANFRANCO DIAZDOB: 6 (59 yo F)Acc No.[id number]:07/19/2024 Pulmonary Function Test Patient: Jahaira GIANFRANCO HANNA Provider: Abdirahman Forde MD :1965 A ge:59 Y S ex:Female Date:07/19/2024 Address:[address] [place], [place] [phone] Pcp:Delta Wade Subjective: * Chief Complaints: * 6 [id number] Billing Information: * Procedure Codes: * Electronic signature of Natasha Forde MD on 03/02/2025 at 03:47 AM SURGICAL TECHNICIAN Sign off status: Pending * Provider: Abdirahman Forde MD Date: 0 07/19/2024 Generated for Mani contreras/Moshe/eTransmitting on: 05/03/2024 03:47 AM SURGICAL TECHNICIAN
--- OUTSIDE RECORDS SUMMARY | 2024-07-19 04:10 | XMS_ITS ---
Author Organization [facility] Address [address] [address] Care Team Providers Care Transportation Economics Teacher Name Role Phone Delta Wade Primary Care Provider Jose Cruz Harvey [phone] REASON FOR VISIT abnormal chest CT Medications [...] Active Encounters Encounter Location Date Provider Diagnosis [facility] [address] [place] [address] [place] [address] 07/19/2024 Jose Cruz Forde Solitary pulmonary nodule R91.1 ; Chronic [...] remission (ICD-10 - F17.211) Patient smoked a vjxz-ppk-yds for 45 years. She has been abstinent [...] cigaret taiwo, in remission Patient smoked a osrq-rqx-pjj for 45 yea rs. She has been [...] ION 07/08/24 but was hospitalized twice at [facility] and unable to complete her pre-surgical [...] DIAZ, GIANFRANCO PageDOB: 6 (59 yo F)Acc No.[id number]:07/19/2024 Progress Notes Patient: GIANFRANCO GARCIA Provider: Abdirahman Forde MD :1965 A ge:59 Y S ex:Female Date:07/19/2024 Address:[address] [place], [place] [phone] Pcp:Delta Wade Subjective: * Chief Complaints: * [...] ION 07/08/24 but was hospitalized twice at [facility] and unable to complete her pre-surgical testing. ION rescheduled for 07/22/24 -ION CT. * ROS: Juliette cain of [facility] [place] has been reviewed and scanned in by [...] 1 TABLET BY MOUTH EVERY DAY Oral Bgm-NdszjdXGLHJpuntio-Xatlznpwjppxo 5-325 MG Tablet TAKE 1 TABLET BY [...] cigarettes, in remission Notes: Patient smoked a dkay-jzy-skg for 45 years. She has been abstinent [...] Forde MD on 03/02/2025 at 03:46 AM VENEER PRODUCTION MACHINE OPERATOR Sign off status: Pending * Provider: Abdirahman Forde MD Date: 0 07/19/2024 Generated for Mani contreras/Moshe/Adrianitting on: 1 05/03/2024 03:46 AM VENEER PRODUCTION MACHINE OPERATOR
--- OUTSIDE RECORDS SUMMARY | 2024-07-22 04:00 | XMS_ITS ---
Author Organization [facility] Address [address] [place] [address] Care Team Providers Care School Child Care Attendant Name Role Phone Delta Wade Primary Care Provider Jose Cruz Harvey [phone] Encounters Encounter Location Date Provider Diagnosis [facility] [address] [place] [address] [place] [address] 07/22/2024 Jose Cruz Forde Plan Of Treatment No Information Progress Notes * GIANFRANCO DIAZDOB: 6 (59 yo F)Acc No.[id number]:07/22/2024 Patient: Jahaira HANNA GIANFRANCO Page Provider: Abdirahman Forde MD :1965 A ge:59 Y S ex:Female Date:07/22/2024 Address:[address] [place], [place] [phone] Pcp:Delta Wade * Electronic signature of Natasha Forde MD on 03/02/2025 at 03:48 AM PEDIATRICIAN Sign off status: Pending * Provider: Abdirahman Forde MD Date: 0 07/22/2024 Generated for Printi ng/Faxing/eTransmitting on: 1 05/03/2024 03:48 AM PEDIATRICIAN
--- OUTSIDE RECORDS SUMMARY | 2024-08-23 04:00 | XMS_ITS ---
Author Organization [facility] Address [address] [place] [phone] Care Team Providers Care Computer Field Technician Name Role Phone ( [facility] ), PHYSICIAN NOT IDENTIFIED Primary Care Provider DR. Dominguez Pate Unavailable [phone] REASON FOR VISIT TA - Filling Social History Sex Assigned At : Social History Observation Description Sex Assigned At Female Encounters Encounter Location Date Provider Diagnosis [address] [place] [address] [facility] Clinic [address] [place] [phone] 08/23/2024 Dominguez Mckay Plan Of Treatment No Information Progress Notes * DIAZ, ZhangaDOB:1965 (59 yo F)Acc No.[id number]:08/23/2024 Patient: Le Colindres Provider: Jahaira Mckay DDS :1965 A ge:59 Y S ex:Female Date:08/23/2024 Address:[address] [place], [place] [phone] Pcp:PHYSICIAN NOT IDENTIFIED ( [facility] ) Subjective: * Chief Complaints: * T A - Filling Billing Information: * Procedure Codes: * Electronic signature of DR. Dominguez Mckay DDS on 03/02/2025 at 03:47 AM DISTILLING DEPARTMENT SUPERVISOR Sign off status: Pending * Provider: Jahaira Mckay DDS Date: 0 08/23/2024 Generated for Printi ng/Faxing/eTransmitting on: 1 05/03/2024 03:47 AM DISTILLING DEPARTMENT SUPERVISOR
--- OUTSIDE RECORDS SUMMARY | 2024-09-07 02:30 | XMS_ITS ---
Author Organization [facility] Address [address] [place] [phone] Care Team Providers Care Molasses Feed Mixer Name Role Phone ( [facility] ), PHYSICIAN NOT IDENTIFIED Primary Care Provider DR. Dominguez Pate Unavailable [phone] REASON FOR VISIT TA causing alot of [place]-pt wants filling done- told pt it was a limited not restore appt Social History Sex Assigned At : Social History Observation Description Sex Assigned At Female Encounters Encounter Location Date Provider Diagnosis [address] [place] [address] Dental Clinic [address] [place] [phone] 09/07/2024 Dominguez Mckay Plan Of Treatment No Information Progress Notes * Zhang DIAZIvettB:1965 (59 yo F)Acc No.[id number]:09/07/2024 Patient: Le Colindres Provider: Jahaira Mckay DDS :1965 A ge:59 Y S ex:Female Date:09/07/2024 Address:[address] [place], [place] [id number] Pcp:PHYSICIAN NOT IDENTIFIED ( [facility] ) Subjective: * Chief Complaints: * T A causing alot of [place]-pt wants filling done- told pt it was a limited not restore appt Billing Information: * Procedure Codes: * Electronic signature of DR. Dominguez Mckay DDS on 03/02/2025 at 03:43 AM DOLLYMAN Sign off status: Pending * Provider: Jahaira Mckay DDS Date: 0 09/07/2024 Generated for Mani contreras/Moshe/Binta on: 1 05/03/2024 03:43 AM DOLLYMAN
--- OUTSIDE RECORDS SUMMARY | 2025-01-16 02:00 | XMS_ITS ---
Author Organization [facility] Address [address] [place] [address] Care Team Providers Care Technology Infusion Specialist Name Role Phone ( [facility] ), PHYSICIAN NOT IDENTIFIED Primary Care Provider DR. Dominguez Pate Unavailable [phone] REASON FOR VISIT wants 4 teeth pulled Social History Sex Assigned At : Social History Observation Description Sex Assigned At Female Encounters Encounter Location Date Provider Diagnosis [address] [place] [address] Dental Clinic [address] [place] [phone] 01/16/2025 Dominguez Mckay Plan Of Treatment No Information Progress Notes * Zhang DIAZIvettB:1965 (59 yo F)Acc No.[id number]:01/16/2025 Patient: Le Colindres Provider: Jahaira Mckay DDS :1965 A ge:59 Y S ex:Female Date:01/16/2025 Address:[address] [place], [place] [id number] Pcp:PHYSICIAN NOT IDENTIFIED ( [facility] ) Subjective: * Chief Complaints: * W ants 4 teeth pulled Billing Information: * Procedure Codes: * Electronic signature of DR. Dominguez Mckay DDS on 03/02/2025 at 03:46 AM PIN WORKER Sign off status: Pending * Provider: Jahaira Mckay DDS Date: 1 Generated for Printi ng/Faxing/eTransmitting on: 1 05/03/2024 03:46 AM PIN WORKER
--- OUTSIDE RECORDS SUMMARY | 2025-02-23 16:00 | XMS_ITS | Encounter Summary ---
Author Organization [facility] Address [address] [place] [address] Care Team Providers Care Recreation Center Director Name Role Phone Marcia Claros MD Primary Care Provider +1- [phone] Reason for Referral * Medication Prior Authorization - Pending Review Specialty Diagnoses / Procedures Referred By Marcelle t Referred To Contact Diagnoses Congestive heart failure, unspecified HF chronicity, unspecified heart failure type (CMS/HCC) Marcia Claros MD [address] [address] Phone: tel: fax: Referral ID Status Reason Start Date Expiration Date V isits Requested Visits Authorized [id number] Pending Review 1 1 E RAIL CLEANER * Hospice (Routine) - Closed Specialty Diagnoses / Procedures Referred By Contteri t Referred To Contact Diagnoses Acute respiratory failure with hypoxia and hypercapnia (CMS/HCC) Centrilobular emphysema (CMS/HCC) Marcia Claros MD [address] [address] Phone: tel: fax: Hospice [facility] ([facility]) [address] [address] Phone: tel: fax: Referral ID Status Reason Start Date Expiration Date Visits Re quested Visits Authorized [id number] Closed 02/23/2025 02/23/2026 1 1 E RAIL CLEANER Reason for Visit * Reason Comments Establish Care Referral Request Hospice Encounter Details Date Type Department Care Team (Latest Contact Info) Description 02/23/2025 4:00 PM GUIDE RAIL CLEANER Office Visit [facility] [address] [address] Marcia Claros MD [address] [address] Centrilobular emphysema (CMS/HCC) (Primary Dx); [...] do you attend [facility] or restoration services? More than 4 times per year 06/13/2019 Do you belong to any clubs o r organizations such as mandaen groups, unions, fraternal or athletic groups, or [...] on file Legal Sex Female 11:49 PM GUIDE RAIL CLEANER Gender Identity Not on file Sexual Orientation Not on file documented as of this encounter Last Filed Vital Signs Vital Sign Reading Time Taken Comments Blood Pressure 126/70 02/23/2025 3:50 PM GUIDE RAIL CLEANER Pulse 100 02/23/2025 3:50 PM GUIDE RAIL CLEANER Temperature 36.6 C (97.9 F) 02/23/2025 3:50 PM GUIDE RAIL CLEANER Respiratory Rate 16 02/23/2025 3:50 PM GUIDE RAIL CLEANER Oxygen Saturation 96% 02/23/2025 3:50 PM GUIDE RAIL CLEANER Inhaled Oxygen Concentration - - Weight 94.3 kg (208 lb) 02/23/2025 3:50 PM GUIDE RAIL CLEANER Height 165.1 cm (5' 5 ) 02/23/2025 3:50 PM GUIDE RAIL CLEANER Body Mass Index 34.61 02/23/2025 3:50 PM GUIDE RAIL CLEANER documented in this encounter Progress Notes * Marcia Claros MD - 02/23/2025 3:52 PM CST HISTORY OF PRESENT ILLNESS Le Barnhart, a 59 y.o. 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 Former smoker Z87.891 Mixed hyperlipidemia E78.2 H/O vaginal surgery Z98.890 Atherosclerosis of [place] coronary artery of [place] heart without angina pectoris I25.10 Asthma J45.909 Chronic pain syndrome G89.4 Osteoarthritis of cervical spine M47.812 HEENA (generalized anxiety disorder) F41.1 GERD (gastroesophageal reflux disease) K21.9 Opioid dependence ([facility]) F11.20 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 History of breast cancer Z85.3 Type 2 diabetes mellitus without complication, without long-term current use of insulin ([facility]) E11.9 H/O mastectomy, right Z90.11 Closed nondisplaced fracture of body of left scapula S42.115D Hematoma of spleen after procedure on spleen D78.31 Splenic cyst D73.4 Adynamic ileus ([facility]) K56.0 Protein-calorie malnutrition, moderate E44.0 History of splenectomy Z90.81 History of pulmonary embolism Z86.711 Hot flashes R23.2 Snoring R06.83 Daytime somnolence R40.0 Non-proliferative diabetic retinopathy, left eye ([facility]) E11.3292 Nuclear age-related cataract, both eyes H25.13 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 vein occlusion with neovascularization of right eye ([facility]) H34.8111 Neuropathy G62.9 Hammertoe of left foot M20.42 Chronic respiratory failure with hypoxia, on home O2 therapy ([facility]) J96.11, Z99.81 Anemia D64.9 HFrEF (heart failure with reduced ejection fraction) ([facility]) I50.20 Chronic combined systolic and diastolic heart failure ([facility]) I50.42 Vagina absent Q52.0 Insulin dependent type 2 diabetes mellitus ([facility]) E11.9, Z79.4 Benign hypertension I10 CAD (coronary atherosclerotic disease) I25.10 Morbid obesity due to excess calories ([facility]) E66.01 Chronic anticoagulation Z79.01 Fall W19.XXXA L1 vertebral fracture ([facility]) S32.019A Closed compression fracture of body of L1 vertebra ([facility]) S32.010A Back pain M54.9 At risk for obstructive sleep apnea Z91.89 Centrilobular emphysema ([facility]) J43.2 Essential hypertension I[address] R93.89 Diabetes mellitus with hyperglycemia ([facility]) E11.65 Hepatic steatosis K76.0 COPD exacerbation ([facility]) J44.1 Consolidation of left lower lobe of lung J18.1 Left arm swelling M79.89 Type 2 diabetes mellitus with hyperglycemia, with long-term current use of insulin ([facility]) E11.65, Z79.4 Demand ischemia of myocardium (CMS/HCC) [...] (CMS/HCC) E11.40 Ischemic cardiomyopathy I25.5 Pulmonary embolism ([facility]) I26.99 Supraventricular tachycardia I47.10 REVIEW OF SYSTEMS [...] and PLAN: ICD-10-CM ICD-9-CM 1. [place]rilobular [place]sema [place] J43.2 492.8 AMB REFERRAL TO HOSPICE Previously on hospice Desires readmission Referal sent Discussed what hospice involves and desires admission 2. Acute respiratory failure with hypoxia and hypercapnia ([facility]) J96.01 518.81 AMB REFERRAL TO HOSPICE J96.02 Stable on continuous oxygen 3. Type 2 diabetes mellitus without complication, without long-term current use of insulin ([facility] E11.9 250.00 empagliflozin (JARDIANCE) 10 mg tablet POC GLUCOSE Glucose 199 today Restart Lantus per request Monitor at home for hypoglycemia Last HgA1c 10.4 Planned hospice admission 4. Congestive heart failure, unspecified HF chronicity, unspecified heart failure type ([facility]) I50.9 428.0 isosorbide mononitrate (IMDUR) 30 mg Extended Release 24 hour tablet sacubitriL-valsartan (ENTRESTO) 24-26 mg Tablet Compensated Cont Jardiance/metoprolol/Lasix/Entresto 5. Paroxysmal atrial flutter ([facility]) I48.92 427.32 Rate controlled Cont Eliquis Marcia [...] injection 2 timesdaily. 15 mL 3 Insulin [place], Disposable, (Comfort EZ Pen [place]) 31 gauge x 1/4 Needle Use with [...] 1 Each 0 naloxone (NARCAN) 4 mg/spray [place], Non-Aerosol EMERGENCY USE ONLY: Administer 1 spray [...] to TID PRN symptoms. 1 Each 0 E RAIL CLEANER documented in this encounter Plan of Treatment Upcoming Encounters Date Type Department Care Team (Latest Contact Info) Description 03/22/2025 10:30 AM GUIDE RAIL CLEANER Hospital Encounter [facility] [place] [address] [place] [phone] Kumar Ochoa MD [address] [facility] [place] [address] Combined forms of age-related cataract of right eye 08/24/2025 2:20 PM CDT Office Visit [address] [address] Marcia Claros MD [address] [address] Scheduled Procedures Name Priority Associated Diagnoses Date/Ti me CATARACT EXTRACTION IOL INSERTION FEMTO LASER ASSISTED LEVEL 1 Combined forms of age-related cataract of right eye Right retinal detachment 03/22/2025 7:35 AM GUIDE RAIL CLEANER PARS PLANA VITRECTOMY WITH LASER Combined forms of age-related cataract of right eye Right retinal detachment 03/22/2025 7:35 AM GUIDE RAIL CLEANER EYE PLACEMENT OF SILICONE OIL Combined forms of age-related cataract of right eye Right retinal detachment 03/22/2025 7:35 AM GUIDE RAIL CLEANER Scheduled Referrals Name Type Priority Associated Diagnoses Orde r Schedule AMB REFERRAL TO HOSPICE Outpatient Referral Routine Acute respiratory failure with hypoxia and hypercapnia (CMS/HCC) Centrilobular emphysema ([facility]) Ordered: 02/23/2025 documented as of this encounter Goals Goal Patient Goal Type Associated Problems Recent Progress Patient-Stated? Author Heart Failure Goal Care Plan Heart Failure Problem No Latonya Anguiano LPN Autogenerated Goal Care Plan Autogenerated Problem No Windy Dubois documented as of this encounter Procedures Procedure Name Priority Date/Time Associated Diagnosis Comments POC GLUCOSE Routine 02/23/2025 4:31 PM GUIDE RAIL CLEANER Type 2 diabetes mellitus without complication, without long-term current use of insulin ([facility]) documented in this encounter Results * (ABNORMAL) POC GLUCOSE (02/23/2025 4:31 PM GUIDE RAIL CLEANER) GLUCOSE POC 199(A) 65 - 99 mg/dL [facility] SPECIMEN SOURCE, GLUCOSE POC [facility] INTERNAL KIT QC POC Pass Pass [facility] KIT LOT NUMBER POC [phone] [facility] KIT EXP DATE POC 01/13/2026 [facility] Blood, capillary 02/23/2025 4:31 PM GUIDE RAIL CLEANER us Marcia Claros MD POINT OF CARE TESTING Jana flores Result [facility] CLIA# [id number] [address] [place] [address] documented in this encounter Visit Diagnoses Diagnosis Centrilobular emphysema (CMS/HCC)- Primary Other emphysema Acute respiratory failure with hypoxia and hypercapnia ([facility]) Type 2 diabetes mellitus without complication, without long-term current use of insulin ([facility]) Congestive heart failure, unspecified HF chronicity, unspecified heart failure type ([facility]) Paroxysmal atrial flutter ([facility]) Atrial flutter documented in this encounter Additional Health Concerns Active Problems Noted Date Diagnosed Date Heart Failure Problem 05/12/2024 Autogenerated Problem 01/25/2025 documented as of this encounter Care Teams Recreation Center Director Relationship Specialty Start Date End Date Marcia Claros MD [address] [place] [phone] PCP - General Family Practice 02/23/25 documented as of this encounter
--- OUTSIDE RECORDS SUMMARY | 2025-02-26 15:52 | XMS_ITS | Encounter Summary ---
Author Organization [facility] Address [address] [place] [address] Care Team Providers Care Labor Expediter Name Role Phone Marcia Claros MD Primary Care Provider [phone]- [phone] Reason for Visit * Reason Comments Shortness of Breath From home via POV w/ pt complains of abdominal pain and shortness of breath x1 hour. Pt SPO2 94% on 3L at triage desk. -N/V. -fevers. Abdominal Pain * Auth/Cert (Routine) Specialty Diagnoses / Procedures Referred By Marcelle smith Referred To Contact Emergency Medicine [facility] Emergency Department [address] [place] [phone] Phone: tel: fax: Referral ID Status Reason Start Date Expiration Date Visits Re quested Visits Authorized [id number] 1 1 Encounter Details Date Type Department Care Team (Late st Contact Info) Description 02/26/2025 3:52 PM AIRPORT RAMP SUPERVISOR - 02/26/2025 5:38 PM AIRPORT RAMP SUPERVISOR Emergency [facility] Emergency Department [address] [place] [phone] Delta Botello MD [address] [place] [address] [place] [phone] Other chronic pain (Primary Dx); Hospice [...] 06/13/2019 How often do you attend [facility] or temple services? More than 4 times per year [...] worry about transportation for future doctor visits, turkey picker medication, etc.? No 2024 Housing Stability [...] on file Legal Sex Female 11:49 PM AIRPORT RAMP SUPERVISOR Gender Identity Not on file Sexual Orientation Not on file documented as of this encounter Last Filed Vital Signs Vital Sign Reading Time Taken Comments Blood Pressure 159/88 02/26/2025 5:30 PM AIRPORT RAMP SUPERVISOR Pulse 107 02/26/2025 5:30 PM AIRPORT RAMP SUPERVISOR Temperature 36.8 C (98.2 F) 02/26/2025 1:57 PM AIRPORT RAMP SUPERVISOR Respiratory Rate 20 02/26/2025 5:15 PM AIRPORT RAMP SUPERVISOR Oxygen Saturation 91% 02/26/2025 5:30 PM AIRPORT RAMP SUPERVISOR Inhaled Oxygen Concentration - - Weight 94.3 kg (208 lb) 02/26/2025 1:57 PM AIRPORT RAMP SUPERVISOR Height 165.1 cm (5' 5 ) 02/26/2025 1:57 PM AIRPORT RAMP SUPERVISOR Body Mass Index 34.61 02/26/2025 1:57 PM AIRPORT RAMP SUPERVISOR documented in this encounter Discharge Instructions * Discharge Instructions* Delta Botello MD - 02/26/2025 5:18 PM AIRPORT RAMP SUPERVISOR Follow-up with the new hospice team. ORT RAMP SUPERVISOR * Attachments The following attachments cannot be sent through Care Everywhere. * Hospice (Faroese) documented in this encounter Medications at Time [...] times daily. 15 mL 3 02/23/2025 Insulin [place], Disposable, (Comfort EZ Pen [place]) 31 gauge x 1/4 Needle Use with [...] 1 Each 08/27/2023 naloxone (NARCAN) 4 mg/spray Myrtle, Non-Aerosol EMERGENCY USE ONLY: Administer 1 spray (4 mg) in one nostril one time. May repeat in alternating nostrils every 2-3 min until responsive or EMS arrives. 2 Each 3 01/06/2023 blood sugar diagnostic StripIndications: Type 2 diabetes mellitus without complication, without long-term current use of insulin ([facility]) Use to test blood glucose up to QID PRN symptoms. 100 Each 11 12/17/2022 OneTouch Delica Plus Lancet 30 gauge USE TO test fasting blood glucose DAILY 11/04/2022 Blood-Glucose Meter KitIndications:Ty pe 2 diabetes mellitus without complication, without long-term current use of insulin ([facility]) Use to test blood glucose up to TID PRN symptoms. 1 Each 12/02/2022 documented as of this encounter Procedure Notes * Gayathri Johnson, PCT - 02/26/2025 4:36 PM CST VASCULAR ACCESS TEAM Peripheral IV insertion PATIENT NAME: Le Diaz DATE OF : 1965 [facility]: [id number] DATE: 02/26/2025 Room: Admit Date: 02/26/2025 Hospital day: LOS: 0 days Allergies: Allergies Allergen Reactions Ketorolac Tromethamine Hives Prochlorperazine Hives and Seizure Propoxyphene Nausea and Vomiting Tramadol Hives Codeine Itching Propoxyphene N-Acetaminophen Nausea and Vomiting VASCULAR ACCESS TEAM Peripheral IV insertion with lab collection PATIENT NAME: Le Diaz DATE OF : 1965 [facility]: [id number] DATE: 02/26/2025 Room: Admit Date: 02/26/2025 Hospital [...] PIV placed at this time. MILES Flores ORT RAMP SUPERVISOR documented in this encounter ED Notes * Adelaida Forrest RN - 02/26/2025 4:45 PM CST Patient refusing nasal swab. Physician notified. ORT RAMP SUPERVISOR * Nicolle Vo NP - 02/26/2025 2:30 [...] to expect during their stay. Pain 05/02 ORT RAMP SUPERVISOR * Meir Lipscomb - 02/26/2025 2:14 PM [...] by family while pt swearingat this tech. ORT RAMP SUPERVISOR * Pablo Morales FNP - 02/26/2025 1:59 [...] may have been created by an artificial chair installer software. Effort has been done to assure accuracy of chair installer. Any obvious errors or omissions should be clarified with the author of the document. RALEIGH Carmen ORT RAMP SUPERVISOR ORT RAMP SUPERVISOR * Delta Botello MD - 02/26/2025 1:50 PM CST Images from the original note were not included. 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 INSERT MIDLINE IV 10/31/2024 INSERT MIDLINE IV 12/10/2024 INSERT MIDLINE IV 01/04/2025 OH CATH PLMT L HRT & ARTS W/NJX & ANGIO IMG S&I N/A 03/21/2024 Left heart cath performed by Kyler Helm MD at [facility] INVASIVE CARDIOLOGY OH CATH PLMT L HRT & ARTS W/NJX & ANGIO IMG S&I N/A 03/21/2024 Left Ventriculogram performed by Kyler Helm MD at [facility] INVASIVE CARDIOLOGY OH COLONOSCOPY FLX DX W/COLLJ SPEC WHEN PFRMD 01/23/2011 COLONOSCOPY performed by MACK BISWAS at [facility] ENDOSCOPY OH COLONOSCOPY FLX DX W/COLLJ SPEC WHEN PFRMD 09/19/2010 COLONOSCOPY performed by MACK BISWAS at [facility] ENDOSCOPY OH CORRECTION HAMMERTOE Left 07/20/2024 TOE(S) ARTHROPLASTY performed by Tereso Gil, DPM at [facility] OR OH EXPL PENETRATING WOUND SPX ABDOMEN/FLANK/BACK N/A 05/30/2023 LAPAROTOMY EXPLORATORY performed by Jose Cruz Montero DO at [facility] OR OH INJ SUBSTITUTE PARS PLANA/LIMBL W/WO ASPIR SPX Right 03/30/2024 EYE AIR FLUID GAS EXCHANGE performed by Eduardo Craven MD at [facility] SUR[facility]ERY [facility]ENTER NATIONAL OH RPR RPTD SPLEEN SPLENORRHAPHY W/WO PRTL SPLENECT N/A 05/30/2023 SPLENECTOMY performed by Jose Cruz Montero DO at [facility] OR OH VITRECTOMY [facility] PARS PLNA FOCAL ENDOLASER PC Right 03/30/2024 PARS PLANA VITRECTOMY WITH LASER performed by Eduardo Craven MD at [facility] SUR[facility]ERY [facility] NATIONAL Family History Family History [...] daily., Disp: 15 mL, Rfl: 3 Insulin [place], Disposable, (Comfort EZ Pen [place]) 31 gauge x 1/4 Needle, Use with [...] Each, Rfl: 0 naloxone (NARCAN) 4 mg/spray Myrtle, Non-Aerosol, EMERGENCY USE ONLY: Administer 1 spray [...] Range LIPASE 24 13 - 60 U/L Loan Expeditor Sinus tachycardia 100 - 105 EKG Sinus [...] QID PRN symptoms. Signed by: Dr. Myron Bukr Quantity: 100 Each Refills: 11 Blood-Glucose Meter Kit Use to test blood glucose up to TID PRN symptoms. Signed by: Dr. Myron uBrk Quantity: 1 Each Refills: 0 empagliflozin 10 [...] Claros Quantity: 15 mL Refills: 3 Insulin [place] (Disposable) 31 gauge x 1/4 Needle Commonly known as: Comfort EZ Pen [place] Use with insulin pens as prescribed Signed [...] 90 Tablet Refills: 3 naloxone 4 mg/spray Myrtle, Non-Aerosol Commonly known as: NARCAN EMERGENCY USE [...] with the following doctors: Marcia Claros MD [address] [place] [phone] Schedule an appointment as soon as possible for a visit @[email or web address]@ Delta Botello MD ORT RAMP SUPERVISOR documented in this encounter Miscellaneous Notes * [...] or financial issues in the ER notes. ORT RAMP SUPERVISOR * ED Bed Hold Comment Note - Dedra Galan RN - 02/26/2025 3:52 PM AIRPORT RAMP SUPERVISOR Bed: 22 Expected date: 02/26/25 Expected time: 3:52 PM Means of arrival: Comments: TRIAGE ORT RAMP SUPERVISOR documented in this encounter Plan of Treatment Upcoming Encounters Date Type Department Care Team (Latest Contact Info) Description 03/22/2025 10:30 AM AIRPORT RAMP SUPERVISOR Hospital Encounter [facility] [address] [place] [phone] Kumar Ochoa MD [address] [facility] [address] [place] [phone] Combined forms of age-related cataract of right eye 08/24/2025 2:20 PM CDT Office Visit [facility] [address] [phone] Marcia Claros MD [address] [phone] Scheduled Procedures Name Priority Associated Diagnoses Date/Ti me CATARACT EXTRACTION IOL INSERTION FEMTO LASER ASSISTED LEVEL 1 Combined forms of age-related cataract of right eye Right retinal detachment 03/22/2025 7:35 AM AIRPORT RAMP SUPERVISOR PARS PLANA VITRECTOMY WITH LASER Combined forms of age-related cataract of right eye Right retinal detachment 03/22/2025 7:35 AM AIRPORT RAMP SUPERVISOR EYE PLACEMENT OF SILICONE OIL Combined forms of age-related cataract of right eye Right retinal detachment 03/22/2025 7:35 AM AIRPORT RAMP SUPERVISOR documented as of this encounter Goals Goal Patient Goal Type Associated Problems Recent Progress Patient-Stated? Author Heart Failure Goal Care Plan Heart Failure Problem No Latonya Anguiano LPN Autogenerated Goal Care Plan Autogenerated Problem No Windy Dubois documented as of this encounter Procedures Procedure Name Priority Date/Time Associated Diagnosis Comments EKG 12-LEAD Stat 02/26/2025 4:13 PM AIRPORT RAMP SUPERVISOR TROPONIN BASELINE, 5TH GEN Stat 02/26/2025 3:52 PM AIRPORT RAMP SUPERVISOR CBC WITH DIFFERENTIAL Stat 02/26/2025 3:52 PM AIRPORT RAMP SUPERVISOR BRAIN NATRIURETIC PEPTIDE, BNP OR PROBNP Stat 02/26/2025 3:52 PM AIRPORT RAMP SUPERVISOR LIPASE Stat 02/26/2025 3:52 PM AIRPORT RAMP SUPERVISOR COMPREHENSIVE METABOLIC PANEL Stat 02/26/2025 3:52 PM AIRPORT RAMP SUPERVISOR XR CHEST PA OR AP 1 VW Stat 3:04 PM AIRPORT RAMP SUPERVISOR documented in this encounter Results * EKG 12-LEAD (02/26/2025 4:13 PM AIRPORT RAMP SUPERVISOR) 02/26/2025 4:13 PM AIRPORT RAMP SUPERVISOR Narrative INTERFACE SYSTEM - 02/27/2025 6:52 AM AIRPORT RAMP SUPERVISOR [address] [address] Test Date: 2025-02-26 Pat Name: LE DIAZ Department: 11 Room: Gender: Female Chief Power Dispatcher: [id number] : 1965 Requested By: Order Number: [id number] Reading MD: Echo Tapia Measurements Intervals [place] Rate: 102 P: 258 [place]: 150 QRS: 72 QRSD: 86 T: -23 QT: 354 QTc: 461 Interpretive Statements Unusual P axis, possible ectopic atrial tachycardia Cannot rule out Anterior infarct, age undetermined Abnormal ECG Electronically Signed On 02-27-2025 6:52:25 AIRPORT RAMP SUPERVISOR by Echo Tapia Procedure Note Provider, Historical - 02/27/2025 [facility] [address] [place] [address] Test Date: 2025-02-26 Pat Name: LE DIAZ Department: 11 Room: Gender: Female Chief Power Dispatcher: [id number] : 1965 Requested By: Order Number: [id number] Reading MD: Echo Tapia Measurements Intervals [place] Rate: 102 P: 258 [place]: 150 QRS: 72 QRSD: 86 T: -23 QT: 354 QTc: 461 Interpretive Statements Unusual P axis, possible ectopic atrial tachycardia Cannot rule out Anterior infarct, age undetermined Abnormal ECG Electronically Signed On 02-27-2025 6:52:25 AIRPORT RAMP SUPERVISOR by Echo Tapia us Nicolle Vo FRESH MEAT GRADER ECG ORDERABLES Final R esult Performing Organization Address City/[facility] Co de Phone Number INTERFACE SYSTEM Refer to clinic/hospital department * LIPASE (02/26/2025 3:52 PM AIRPORT RAMP SUPERVISOR) LIPASE 24 13 - 60 U/L 02/26/2025 4:58 PM AIRPORT RAMP SUPERVISOR [facility] Blood Venipuncture / Unknown 02/26/2025 3:52 PM AIRPORT RAMP SUPERVISOR 02/26/2025 4:05 PM AIRPORT RAMP SUPERVISOR us Delta Botello MD CHEMISTRY ORDERABLES Final R esult Performing Organization Address [facility] Co de Phone Number [facility] CLIA # [id number] [address] [facility] [place] [address] * (ABNORMAL) TROPONIN BASELINE, 5TH GEN (02/26/2025 3:52 PM AIRPORT RAMP SUPERVISOR) TROPONIN T, BASELINE 5TH GEN 21(H) <=10 ng/L 02/26/2025 4:58 PM AIRPORT RAMP SUPERVISOR [facility] Blood Venipuncture / Unknown 02/26/2025 3:52 PM AIRPORT RAMP SUPERVISOR 02/26/2025 4:05 PM AIRPORT RAMP SUPERVISOR Narrative [facility] - 02/26/2025 4:58 PM AIRPORT RAMP SUPERVISOR Troponin elevated. us Nicolle Vo FRESH MEAT GRADER CHEMISTRY ORDERABLES Fi nal Result Performing Organization Address City/[facility]/ZIP Co de Phone Number [facility] CLIA # [id number] [address] [facility] [place] [address] * (ABNORMAL) BRAIN NATRIURETIC PEPTIDE, BNP OR PROBNP (02/26/2025 3:52 PM AIRPORT RAMP SUPERVISOR) PROBNP, N TERMINAL 570(H) 0 - 125 pg/mL 02/26/2025 4:58 PM AIRPORT RAMP SUPERVISOR [facility] Comment: INTERPRETIVE COMMENT based on diagnosis: [...] Blood Venipuncture / Unknown 02/26/2025 3:52 PM AIRPORT RAMP SUPERVISOR 02/26/2025 4:05 PM AIRPORT RAMP SUPERVISOR us Nicolle Vo FRESH MEAT GRADER CHEMISTRY ORDERABLES Fi nal Result [facility] YAKELIN # [id number] [address] [address] [place] [address] * (ABNORMAL) COMPREHENSIVE METABOLIC PANEL (02/26/2025 3:52 PM AIRPORT RAMP SUPERVISOR) SODIUM 142 136 - 145 mmol/L 02/26/2025 4:58 PM [facility] POTASSIUM 4.3 3.5 - 5.1 mmol/L 02/26/2025 4:58 PM [facility] Comment:Slightly hemolyzed. Result may be falsely elevated. CHLORIDE 106 98 - 107 mmol/L 02/26/2025 4:58 PM [facility] CO2 22 22 - 29 mmol/L 02/26/2025 4:58 PM [facility] CALCIUM 9.5 8.6 - 10.0 mg/dL 02/26/2025 4:58 PM [facility] BUN 14 6 - 20 mg/dL 02/26/2025 4:58 PM [facility] CREATININE 0.49(L) 0.51 - 0.95 mg/dL 02/26/2025 4:58 PM [facility] GLUCOSE 165(H) 74 - 99 mg/dL 02/26/2025 4:58 PM [facility] TOTAL PROTEIN 7.1 6.4 - 8.3 g/dL 02/26/2025 4:58 PM [facility] ALBUMIN 3.5 3.5 - 5.2 g/dL 02/26/2025 4:58 PM [facility] BILIRUBIN TOTAL 0.2 0.0 - 1.0 mg/dL 02/26/2025 4:58 PM [facility] ALKALINE PHOSPHATASE 108(H) 35 - 104 U/L 02/26/2025 4:58 PM [facility] AST 27 10 - 35 U/L 02/26/2025 4:58 PM [facility] Comment:Hemolysis present. R esult may be falsely elevated. ALT 15 <=35 U/L 02/26/2025 4:58 PM [facility] GFR >60 >=60 mL/min/1. 73 sq meter 02/26/2025 4:58 PM [facility] Comment:eGFR calculated with 2020 CKD-EPI equation. Vegetarian diet, extremely high or low muscle mass, and may affect results. Cystatin C with Glomerular Filtration Rate is a suitable alternative for these patients. ANION GAP 14 9 - 20 mmol/L 02/26/2025 4:58 PM [facility] Blood Venipuncture / Unknown 02/26/2025 3:52 PM AIRPORT RAMP SUPERVISOR 02/26/2025 4:05 PM AIRPORT RAMP SUPERVISOR Nicolle Vo NP CHEMISTRY ORDERABLES Fi nal Result [facility] CLIA # [id number] [address] [place] [address] * (ABNORMAL) CBC WITH DIFFERENTIAL (02/26/2025 3:52 PM AIRPORT RAMP SUPERVISOR) Pathologist [facility] WBC 6.3 4.8 - 10.8 K/uL 02/26/2025 4:09 PM [facility] NRBCS 2(H) <1 % 02/26/2025 4:09 PM [facility] RBC 4.07(L) 4.20 - 5.40 M/uL 02/26/2025 4:09 PM [facility] HEMOGLOBIN 11.2(L) 12.0 - 16.0 g/dL 02/26/2025 4:09 PM [facility] HEMATOCRIT 37.7 36.0 - 46.0 % 02/26/2025 4:09 PM [facility] MCV 92.6 84.0 - 103.0 fL 02/26/2025 4:09 PM [facility] MCH 27.5 27.0 - 34.0 pg 02/26/2025 4:09 PM [facility] MCHC 29.7(L) 30.0 - 35.0 g/dL 02/26/2025 4:09 PM [facility] PLATELETS 166 140 - 440 K/uL 02/26/2025 4:09 PM [facility] MPV 12.3 8.9 - 12.8 fL 02/26/2025 4:09 PM [facility] RDW 19.4(H) 11.0 - 14.5 % 02/26/2025 4:09 PM [facility] RDW-STDEV 65.0(H) 37.0 - 54.0 fL 02/26/2025 4:09 PM [facility] NEUTROPHILS 44 42 - 75 % 02/26/2025 4:09 PM [facility] LYMPHOCYTES 40 24 - 44 % 02/26/2025 4:09 PM [facility] MONOCYTES 14(H) 2 - 10 % 02/26/2025 4:09 PM [facility] EOSINOPHILS 1 0 - 7 % 02/26/2025 4:09 PM [facility] BASOPHILS 1 0 - 1 % 02/26/2025 4:09 PM [facility] IMMATURE GRANULOCYTES 0 0 - 2 % 02/26/2025 4:09 PM [facility] NEUTROPHIL ABSOLUTE 2.79 2.00 - 8.00 K/uL 02/26/2025 4:09 PM [facility] LYMPHOCYTE ABSOLUTE 2.51 1.20 - 4.00 K/uL 02/26/2025 4:09 PM [facility] MONOCYTE ABSOLUTE 0.91(H) 0.10 - 0.60 K/uL 02/26/2025 4:09 PM [facility] EOSINOPHIL ABSOLUTE 0.06 0.00 - 0.70 K/uL 02/26/2025 4:09 PM [facility] BASOPHILS ABSOLUTE 0.03 0.00 - 0.20 K/uL 02/26/2025 4:09 PM [facility] IMMATURE GRANULOCYTES ABSOLUTE 0.02 0.00 - 0.10 K/uL 02/26/2025 4:09 PM AIRPORT RAMP SUPERVISOR [facility] SMEAR REVIEWED: NN - No Action Needed 02/26/2025 4:09 PM AIRPORT RAMP SUPERVISOR [facility] Blood Venipuncture / Unknown 02/26/2025 3:52 PM AIRPORT RAMP SUPERVISOR 02/26/2025 4:03 PM AIRPORT RAMP SUPERVISOR us Nicolle Vo FRESH MEAT GRADER HEMATOLOGY ORDERABLES F inal Result [facility] CLIA # [id number] [address] [address] [place] [address] * XR CHEST PA OR AP 1 VW (02/26/2025 3:04 PM AIRPORT RAMP SUPERVISOR) Anatomical Region Laterality Modality Chest Computed Radiogr aphy 02/26/2025 3:05 PM AIRPORT RAMP SUPERVISOR Impressions 02/26/2025 3:19 PM AIRPORT RAMP SUPERVISOR IMPRESSION: Please see below. Exam: XR CHEST [...] cervical spine. Impression: 1. As above. Nicolle Tapiaanne Gilda [facility] Final Result documented in this encounter [...] at 1630, Routine Given 02/26/2025 5:09 PM AIRPORT RAMP SUPERVISOR 4 mg ondansetron (ZOFRAN) 4 mg/2 mL injection 4 mg 4 mg, IV, ONE TIME ONLY, 1 dose, On 02/26/25 at 1630, Routine Given 02/26/2025 5:09 PM AIRPORT RAMP SUPERVISOR 4 mg documented in this encounter Active and Recently Administered Medications Times are shown in AIRPORT RAMP SUPERVISOR. Scheduled Medication Order 02/24/2025 02/25/2025 02/26/2025 morphine [...] R/O COVID-19 02/26/2025 02/26/2025 02/26/2025 5:18 PM AIRPORT RAMP SUPERVISOR documented as of this encounter Care Teams Labor Expediter Relationship Specialty Start Date End Date Marcia Claros MD [address] [place] [phone] PCP - General Family Practice 02/23/25 documented as of this encounter
[2025-03-02] VITALS (29 sets, daily range): BP systolic 123–165; BP diastolic 62–93; PULSE 97–101; RESP 20–37; TEMP 36.9; O2SAT 85–99; BMI 35.6
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
--- OUTSIDE RECORDS SUMMARY | 2025-03-02 03:44 | XMS_ITS ---
Author Organization [facility] Address [address] [place] [address] Phone Care Team Providers Care Bark Skinner Name Role Phone Marcia Claros MD Primary Care Provider +1- [phone] Active Problems Problem Noted Date Diagnosed Date [...] 06/14/2019 H/O vaginal surgery 06/14/2019 Atherosclerosis of [place] co ronary artery of [place] heart without angina pectoris 06/14/2019 Former smoker [...]
--- OUTSIDE RECORDS SUMMARY | 2025-03-02 03:46 | XMS_ITS | Encounter Summary ---
Author Organization [facility] Address [address] Gonzalez: Epic Prelude ADT [place]Z [address] Care Team Providers Care Displayer Merchandise Name Role Phone Marcia Claros MD Primary Care Provider +1- [phone] Encounter Details Date Type Department Care Team [...] 06/13/2019 How often do you attend [facility] or islam services? More than 4 times per year [...] worry about transportation for future doctor visits, merchandise pickup/receiving associate medication, etc.? No 2024 Housing Stability Answer [...] on file Legal Sex Female 11:49 PM FOLDED CLOTH TAPER Gender Identity Not on file Sexual Orientation Not on file documented as of this encounter Plan of Treatment Upcoming Encounters Date Type Department Care Team (Latest Contact Info) Description 03/22/2025 10:30 AM FOLDED CLOTH TAPER Hospital Encounter [facility] [address] [place] [phone] Kumar Ochoa MD [address] [place] [address] Combined forms of age-related cataract of right eye 08/24/2025 2:20 PM CDT Office Visit [facility] [address] [phone] Marcia Claros MD [address] [phone] Scheduled Procedures Name Priority Associated Diagnoses Date/Ti me CATARACT EXTRACTION IOL INSERTION FEMTO LASER ASSISTED LEVEL 1 Combined forms of age-related cataract of right eye Right retinal detachment 03/22/2025 7:35 AM FOLDED CLOTH TAPER PARS PLANA VITRECTOMY WITH LASER Combined forms of age-related cataract of right eye Right retinal detachment 03/22/2025 7:35 AM FOLDED CLOTH TAPER EYE PLACEMENT OF SILICONE OIL Combined forms of age-related cataract of right eye Right retinal detachment 03/22/2025 7:35 AM FOLDED CLOTH TAPER documented as of this encounter Goals Goal [...] R/O COVID-19 02/26/2025 02/26/2025 02/26/2025 5:18 PM FOLDED CLOTH TAPER documented as of this encounter Care Teams Displayer Merchandise Relationship Specialty Start Date End Date Marcia Claros MD [address] [place] [phone] PCP - General Family Practice 02/23/25 documented as of this encounter
--- OUTSIDE RECORDS SUMMARY | 2025-03-02 03:47 | XMS_ITS | Patient Health Record ---
Author Organization [facility] Address [address] [place] [address] Care Team Providers Care Pulper Tender Name Role Phone Delta Wade Primary Care Provider UnavailJose Cruz Tomas Unavailable [phone] Masoud Bello Unavailable [phone] Acacia Gaines Unavailable [phone] Chantelle Yee Unavailable [phone] Hannah Rai Unavailable [phone] Allergies Allergen (clinical drug ingredient) Drug/Non Drug [...] Notes/Report: CT Chest ION Endoluminal Prothrombin Time 95101 Reviewed date:05/16/2024 05:08:19 PM Interpretation: Performing Lab: Notes/Report: 3510 @ 0021 trop 2nd@ 205 3510 @ 0021 ProTime 10.8 9.1-11.9 SEC Normal Range: 9.1-11.9 INR 1.02 .90-1.20 Therapeutic Range: 2.0-3.0 Therapaeutic Range for heart valve replacement: 2.5-3.50 Partial Thromboplastin Time 85854 Reviewed date:05/16/2024 05:08:19 PM Interpretation: Performing Lab: Notes/Report: trop 2nd@ 3510 @ 0021 3510 @ 0021 PTT 27.1 22.6-31.8 SEC Therapeutic Range: 60-100. Critical Value Starting at > 100. zzzHeart Cath Lt poss PTCA Reviewed date:05/16/2024 05:08:19 PM Interpretation: Performing Lab: Notes/Report: [id number] Schedule Confirmation Reviewed date:05/16/2024 05:08:19 PM Interpretation: Performing Lab: Notes/Report: Heart Cath Lt poss PTCA Schedule Confirmation Reviewed date:05/16/2024 05:08:19 PM Interpretation: Performing Lab: Notes/Report: Heart Cath Lt poss PTCA zzzHeart Cath Lt poss PTCA Reviewed date:05/16/2024 05:08:19 PM Interpretation: Performing Lab: Notes/Report: See Below For Report This report was dictated outside of the Partly system. trop 2nd@ 3510 @ 0021 Read See Below For Report Schedule Confirmation Reviewed date:07/04/2024 04:08:48 PM Interpretation: Performing Lab: Notes/Report: CT Chest ION Endoluminal Reason For Referral Reason COPD; 06/07: 1 wk pe r Eula 06/07: Left Message SCHEDULED 06/20 @ 2:10 PM Diagnosis 1 Chronic obstructive pulmonary disease, unspecified (J44.9) Referring Provider First Name ER Referring Provider Last Name [facility] Referring Provider Speciality Emergency Medicine Referred Organization [facility] Referred Provider Jose Cruz Forde Referred Address [address] [place] [address] [address],[place], [place],[address], Referred Provider Specialty Pulmonary Di seases General [...] Date Status Comme nts Influenza (whole), CPT 96329 Inactive Unknown 01/04/2024 Administered Social History Tobacco [...] W/U Status Risk Notes Problem Tobacco user (647642871) Nicotine dependence, cigarettes, in remission (F17.211) Active confirmed Problem Ischemic cardiomyopathy (745911158) Ischemic cardiomyopathy (I25.5) Active confirmed Problem Chronic obstructive pulmonary disease (71543466) Chronic obstructive pulmonary disease, unspecified (J44.9) Active confirmed Problem Gastro-esophageal reflux disease without esophagitis (105830534) Gastro-esophageal reflux disease without esophagitis (K21.9) Active confirmed Problem C-reactive protein abnormal (574186947) Elevated C-reactive protein (CRP) (R79.82) Active confirmed Problem Solitary pulmonary nodule (782985090) Solitary pulmonary nodule (R91.1) Active confirmed Problem Long-term current use of anticoagulant (017023367) parts counterman (current) use of anticoagulants (Z79.01) Active confirmed Problem Atherosclerotic heart disease of [place] coronary artery without angina pectoris (304674323867492) Arteriosclerosis of coronary artery (I25.10) Active confirmed Problem History of placement of stent for coronary artery disease (situation) (017816065) H/O heart artery stent (Z95.5) Active confirmed Problem Long-term current use of anticoagulant (285311315) Anticoagulated (Z79.01) Active confirmed Problem Angina (284408570) Atheroscleros is of [place] coronary artery of [place] heart with angina pectoris (I25.119) Active confirmed Problem Acute non-ST segment elevation myocardial infarction (079937606) Non-ST elevated myocardial infarction (I21.4) Active confirmed Problem History of pulmonary embolus (391375899) Hx of pulmonary embolus (Z86.711) Active confirmed Problem Coronary stent patent (262979735) Coronary stent patent (Z95.5) Active confirmed Problem Chronic respiratory failure (96646824) Chronic hypoxic respiratory failure (J96.11) Active confirmed [...] N/A Encounters Encounter Location Date Provider Diagnosis [facility] [address] [place] [address] [place] [address] 06/20/2024 Jose Cruz Forde Solitary pulmonary nodule R91.1 ; Chronic hypoxic respiratory failure J96.11 ; Nicotine dependence, cigarettes, in remission F17.211 and Shortness of breath R06.02 [facility] [address] [place] [address] [place] [address] 06/30/2024 Jose Cruz Forde [facility] [place] [address] [place] [address] 06/06/2024 Masoud Bello Other fracture of unspecified [...] remission (ICD-10 - F17.211) Patient smoked a [id number] for 45 years. She has been abstinent [...] Test Test Name Order Date Lumbosacral Spine AP/Lat-32966 5 PFT with FRC: (NO TGV) 06/20/2024 CT Chest ION Endoluminal-11567 5 Insurance Providers Payer Name Payer Address Payer Phone Subscriber Number Group Number Insured Name Patient Relationship to Insured Coverage Start Date Coverage End Date [place] [address] [place] [address] [id number] GIANFRANCO DIAZ Self - patient is the [...]
--- OUTSIDE RECORDS SUMMARY | 2025-03-02 03:47 | XMS_ITS | Encounter Summary ---
Author Organization [facility] Address [address] [place] [address] Care Team Providers Care Head Of Mathematics Name Role Phone Marcia Claros MD Primary Care Provider +1- [phone] Encounter Details Date Type Department Care Team ([facility] st Contact Info) Description 06/16/2024 Telephone [facility] [address] [place] [phone] Eduardo Craven MD [address] [place] [phone] Social History Tobacco Use Types Packs/Day [...] often do you attend chur ch or faith services? More than 4 times per year [...] on file Legal Sex Female 11:49 PM MECHANIC SOUND TECHNICIAN Gender Identity Not on file Sexual [...] (Latest Contact Info) Description 03/22/2025 10:30 AM MECHANIC SOUND TECHNICIAN Hospital Encounter [facility] [address] [place] [phone] Kumar Ochoa MD [address] [place] [address] Combined forms of age-related cataract of right eye 08/24/2025 2:20 PM CDT Office Visit [facility] [address] [phone] Marcia Claros MD [address] [phone] Scheduled Procedures Name Priority Associated Diagnoses Date/Ti me CATARACT EXTRACTION IOL INSERTION FEMTO LASER ASSISTED LEVEL 1 Combined forms of age-related cataract of right eye Right retinal detachment 03/22/2025 7:35 AM MECHANIC SOUND TECHNICIAN PARS PLANA VITRECTOMY WITH LASER Combined forms of age-related cataract of right eye Right retinal detachment 03/22/2025 7:35 AM MECHANIC SOUND TECHNICIAN EYE PLACEMENT OF SILICONE OIL Combined forms of age-related cataract of right eye Right retinal detachment 03/22/2025 7:35 AM MECHANIC SOUND TECHNICIAN documented as of this encounter Goals [...] R/O COVID-19 02/26/2025 02/26/2025 02/26/2025 5:18 PM MECHANIC SOUND TECHNICIAN documented as of this encounter Care Teams Head Of Mathematics Relationship Specialty Start Date End Date Marcia Claros MD [address] [place] [phone] PCP - General Family Practice 02/23/25 documented as of this encounter
--- OUTSIDE RECORDS SUMMARY | 2025-03-02 03:47 | XMS_ITS | Encounter Summary ---
Author Organization [facility] Address [address] [place] [address] Care Team Providers Care High School Foreign Language Tutor Name Role Phone Marcia Claros MD Primary Care Provider +1- [phone] Reason for Visit * Reason Comments Hospital Follow Up Encounter Details Date Type Department Care Team ([facility] st Contact Info) Description 05/13/2024 Telephone [facility] Family Medicine [place] [address] [place] [address] Kay Lima, BACKBREAKER [address] [place] [address] Hospital Follow Up Social History [...] often do you attend chur ch or latter day services? More than 4 times per year [...] on file Legal Sex Female 11:49 PM HOME HEALTH CLINICIAN Gender Identity Not on file Sexual Orientation Not on file documented as of this encounter Miscellaneous Notes * Telephone Encounter - Danyell Rashidghann - 05/13/2024 12:30 PM HOME HEALTH CLINICIAN Called pt back. Could not leave voicemail. If patient calls back please schedule for hospital follow up appointment for the next opening spot. Can be vv if patient cannot travel to clinic. HEALTH CLINICIAN * Telephone Encounter - Gypsy Gerber - 05/13/2024 12:02 PM CST Copied from [facility] #[id number]. Topic: Reschedule/Cancel Appointment/Late Arrival >> May 13, [...] of hospital discharge? 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 [facility] HEALTH CLINICIAN documented in this encounter Plan of Treatment Upcoming Encounters Date Type Department Care Team (Latest Contact Info) Description 03/22/2025 10:30 AM HOME HEALTH CLINICIAN Hospital Encounter [facility] [place] [address] [place] [phone] Kumar Ochoa MD [address] [address] [place] [address] Combined forms of age-related cataract of right eye 08/24/2025 2:20 PM CDT Office Visit [address] [address] Marcia Claros MD [address] [place] [phone] Scheduled Procedures Name Priority Associated Diagnoses Date/Ti me CATARACT EXTRACTION IOL INSERTION FEMTO LASER ASSISTED LEVEL 1 Combined forms of age-related cataract of right eye Right retinal detachment 03/22/2025 7:35 AM HOME HEALTH CLINICIAN PARS PLANA VITRECTOMY WITH LASER Combined forms of age-related cataract of right eye Right retinal detachment 03/22/2025 7:35 AM HOME HEALTH CLINICIAN EYE PLACEMENT OF SILICONE OIL Combined forms of age-related cataract of right eye Right retinal detachment 03/22/2025 7:35 AM HOME HEALTH CLINICIAN documented as of this encounter Goals Goal [...] R/O COVID-19 05/13/2024 05/13/2024 05/14/2024 4:15 AM HOME HEALTH CLINICIAN R/O Respiratory 06/30/2024 06/30/2024 06/30/2024 1 0:36 [...] R/O COVID-19 02/26/2025 02/26/2025 02/26/2025 5:18 PM HOME HEALTH CLINICIAN documented as of this encounter Care Teams High School Foreign Language Tutor Relationship Specialty Start Date End Date Marcia Claros MD [address] [place] [phone] PCP - General Family Practice 02/23/25 documented as of this encounter
--- OUTSIDE RECORDS SUMMARY | 2025-03-02 03:47 | XMS_ITS | Continuity of Care Document ---
Author Organization FLACA Solomon [facility] [place], [place], [facility] ([facility]) Address [address] [place] [address] Assessment Encounter Date Assessment Date Assessment LastModified by Organization Details LastModified Time 01/11/2025 01/11/2025 Patient is here today for a follow-up from the hospital. She was recently seen due to hypoxia. She reports she was frequently passing out. She was told by the provider in [facility] to stop her pain medication. She is requesting a detox of sorts to get off of her pain medication because she doesn't feel like herself while taking them. She was given #90 hydrocodone on 12/20 and she reports she no longer has these because they were taken and discarded of while she was in [facility]. She refuses a referral to pain management [...] 100 unit/mL subcutaneou s pen 2024 025 [facility]/Pharmacy #[id number], [address], [facility] [address], [place], [address], 16:35:18 Lantus Solostar U-100 Insulin 100 unit/mL (3 mL) subcutaneou s pen 2024 025 [facility]/Pharmacy #[id number], [address], [address], [place], [address], 16:35:18 Patient TargetsNo targets recorded. Patient Instructions Encounter Date Encounter Id Patient Instructions Last Modified By Organization Details Last Modified Time 01/11/2025 [id number] hospital discharge follow up* Not available 01/11/2025 16:35:16 Call or return for questions or concerns. Not available 01/11/2025 16:33:46 Reason for Referral None Reported. Results Created Date Observation Date Name Description Value Unit Range Abnormal Flag Note LastModifiedBy Organization Detail LastModifiedTime 12/22/1912/21/2024 PT/IN R Protime 12.7 Not Available [facility] ([facility]) [address] [place], [address], 12/21/2024 09:10:20 12/22/1912/21/2024 PT/IN R INR 1.1 Not Available [facility] ([facility]) [address] [place], [address], 12/21/2024 09:10:20 01/12/2001/11/2025 hospi anamaria disch arge follo w up* Records Reviewed Yes Not Available [facility] ( [facility]) [address] [place], [address], 01/11/2025 16:34:22 01/12/2001/11/2025 hospi anamaria disch arge follo w up* Medications Reconciles Yes Not Available [facility] ([facility]) [address] [facility], [place], [address], 01/11/2025 16:34:22 01/30/20 25 01/29/2025 XR, chest , 2 view No observ ation record ed. [email or web address] [facility] [address] [facility], [place], [address], 01/29/2025 20:36:49 Result Notes None recorded. Problems Name Problem SNOMED Code Status Onset Date Resolution Date Notes Provider Name and Address Organization Details Recorded Time Pulmonary embolism 14764365 Active 2023 JOSE moy [facility] 5 14:52:04 Coronary arterioscle rosis 55110288 Active 2023 JOSE moy [facility] 5 14:52:04 Essential hypertensio n 44285398 Active 2023 JOSE moy [facility] 5 14:52:04 Type 2 diabetes mellitus 92761934 Active 2023 JOSE moy [facility] 5 14:52:04 Mixed anxiety and depressive disorder 176888101 Active 2023 JOSE moy [facility] 5 14:52:04 Chronic osteoarthri tis 55389432 Active 2023 JOSE moy [facility] 5 14:52:04 Chronic obstructive pulmonary disease 81795323 Active 2023 JOSE moy [facility] 5 14:52:04 Pain of left shoulder joint 4010972187936 9109 Active 2023 JOSE moy [facility] 5 14:52:04 Syncope 347157619 Active 2023 JOSE BRIGHT null, [facility] 5 14:52:04 Edema of lower extremity 323605748 Active 2023 JOSE BRIGHT null, [facility] 5 14:52:04 Urinary incontinenc e 089607062 Active 2023 JOSE BRIGHT null, [facility] 5 14:52:04 Recurrent falls 826918466 Active 2023 JOSE BRIGHT null, [facility] 5 14:52:04 Gastroesoph ageal reflux disease 633304221 Active 2023 JOSE BRIGHT null, [facility] 5 14:52:04 Major depressive disorder 488326320 Active 2023 [facility] 14:52:04 Chronic systolic heart failure 418567841 Active 2024 [facility] 5 14:52:04 Generalized anxiety disorder 61731824 Active 2024 JOSE BRIGHT null, [facility] 5 14:52:04 Chronic diastolic heart failure 342972215 Active 2024 JOSE BRIGHT null, [facility] 5 14:52:04 Closed fracture lumbar vertebra, wedge 252108723 Active 2024 YANNICK PERSON null, [facility] 5 10:07:16 Mass of right lower lobe of lung 4950776537378 09 Active 2024 YANNICK HORNRIS [facility] 5 10:07:03 Compression fracture of lumbar spine 246949380 Active 2024 [facility] PERSON [facility] 5 14:30:37 Supraventri cular tachycardia 5071796 Active 2024 [facility] PERSON [facility] 5 14:30:29 Abdominal pain 79384133 Active 2024 [facility] PERSON [facility] 5 17:07:23 Chronic constipatio n 941258135 Active 2024 [facility] PERSON [facility] 5 17:07:18 Problem Notes None recorded. Procedures Surgical History Date Name Laterality Status Provider Name and Address Organization Details Recorded Time Splenectomy completed Sonal Hollis [facility] 08/14/2023 11:39:32 Imaging Results None recorded. Procedure Notes None recorded. Medical Equipment None Reported. Allergies Allergen ID Allergen Name Allergen Category Reaction Reaction Severity Criticality Documentation Date Start Date Code Code System Note Provider Name and Address Organization Details Recorded Time 64065 Compazine medicatio n myalgias (muscle pain) moderate low 10/19/2022 89077 6 RxNorm Lola Redmond [facility] 4 10:30:07 08107 Darvocet- N medicatio n hives mild low 06/20/2023 Lola Redmond [facility] 4 10:30:27 67445 Toradol medicatio n hives Not available Not available 08/21/2023 42140 RxNorm JOSE BRIGHT [facility] 4 16:04:49 Medications Name Sig Start [...] /min 28 /min 152/90 mm[Hg] MAGGIE CHUNG [facility] 5 12:40:32 Social History None recorded. [...] 50 mcg/0.25mL dose 1 completed YANNICK moy [facility] 09/04/2023 12:02:17 COVID-19, mRNA, LNP-S, PF, 100 mcg/0.5mL dose or 50 mcg/0.25mL dose 1 completed YANNICK moy [facility] 09/04/2023 12:02:17 COVID-19, mRNA, LNP-S, PF, 100 mcg/0.5mL dose or 50 mcg/0.25mL dose 1 completed YANNICK moy [facility] 09/04/2023 12:02:17 Pneumococcal conjugate PCV20, polysaccharide [id number] conjugate, adjuvant, PF 3 completed YANNICK moy [facility] 09/04/2023 12:02:17 Pneumococcal conjugate PCV20, polysaccharide [id number] conjugate, adjuvant, PF 2 completed YANNICK moy [facility] 09/04/2023 12:02:17 COVID-19, mRNA, LNP-S, PF, 50 mcg/0.5 mL dose 2 completed YANNICK myo [facility] 09/04/2023 12:02:17 pneumococcal polysaccharide PPV23 8 completed YANNICK moy [facility] 09/04/2023 12:02:17 Tdap 2 completed YANNICK moy [facility] 09/04/2023 12:02:17 Tdap 3 completed YANNICK moy [facility] 09/04/2023 12:02:17 Influenza, split virus, trivalent, PF 5 completed YANNICK PERSON null, [facility] 09/04/2023 12:02:17 Influenza, split virus, quadrivalent, PF 3 completed YANNICK PERSON null, [facility] 09/04/2023 12:02:17 Influenza, split virus, quadrivalent, PF 8 completed YANNICK PERSON null, [facility] 09/04/2023 12:02:17 Influenza, split virus, quadrivalent, PF 2 completed YANNICK moy, [facility] 09/04/2023 12:02:17 Influenza, split virus, quadrivalent, PF 9 completed YANNICK moy, [facility] 09/04/2023 12:02:17 meningococcal B, OMV 4 completed YANNICK moy, [facility] 09/07/2023 11:21:49 meningococcal conjugate quadrivalent, MenACWY-TT (MCV4) 4 completed [facility] 09/07/2023 11:21:49 Pneumococcal conjugate PCV20, polysaccharide [id number] conjugate, adjuvant, PF 4 completed YANNICK moy, [facility] 09/07/2023 11:21:49 Hib (PRP-T) 4 completed YANNICKEdward PERSON [facility] 09/07/2023 11:21:49 Influenza, split virus, trivalent, PF 4 completed Not Available [facility] 01/11/2025 11:39:54 Past Encounters Encounter ID Performer Location Encounter Start Date Encounter Closed Date Diagnosis/Indication Diagnosis SNOMED-CT Code Diagnosis ICD10 Code Diagnosis IMO Codes Diagnosis Note [id number] Delta Wade MD [facility] ([facility]) [address] [place] [address] 12/21/2024 09:09:05 12/22/2024 11:06:01 Pulmonary embolism 03315823 I26.99 INR was 0.9 recently at [place] by her report. [id number] RALEIGH MCELROY [facility] ([facility]) [address] [place] [address] 01/11/2025 11:37:07 01/11/2025 16:52:31 Chronic obstructive pulmonary disease 73544485 J44.9 Her PCP has been trying to [...] by Dr. Wade for patient. [facility] ed type 2 diabetes mellitus 943091119 E11.65 21927765 Chronic pain syndrome 37 1694230 G89.[id number] Wade. She has not [...] Name 01/11/2025 1 [place] Le Barnhart [id number] Le Barnhart Notes Date Note Type Note Provider Name and Address Organization Details Recorded Time 01/11/2025 text/html COPDReported by PatientHPI:For severity, patient reportsvery limiting. For duration, patient reportschronic,has noted for years, andconstant. For alleviating factors, patient reportsrelieved with restandrelieved with oxygen. Delta Wade MD [address] [place] [address], [phone], [facility] 01/11/2025 17:20:33 OBGyn Episode No OBEpisode recorded.
--- OUTSIDE RECORDS SUMMARY | 2025-03-02 03:47 | XMS_ITS | CCD ---
Author Name Interface, [id number] lity Address [address] [facility] [place] [address] [facility] Address [address] [place] [address] Care Team Providers Care Instructional Designer Name Role Phone Anika VALLADARES, Allen Unavailable [...]
--- OUTSIDE RECORDS SUMMARY | 2025-03-02 03:48 | XMS_ITS | Continuity of Care Document ---
Author Organization FLACA Gaxiola [facility] [place], LRubén, [facility] ([facility]) Address [address] [place] [address] Assessment No assessment recorded. Plan of Treatment Reminders Order Date Submit Date Provider Last Modified By Organization Details Last Modified Time Details Appointments None record ed. Lab PT/INR 025 12/22/19 [facility] [address] [place], [address], 09:16:46 Referral None record ed. Procedures None record ed. Surgeries None record ed. Imaging None record ed. Medication Orders None record ed. Patient TargetsNo targets recorded. Patient InstructionsNo instructions recorded. Reason for Referral None Reported. Results Created Date Observation Date Name Description Value Unit Range Abnormal Flag Note LastModifiedBy Organization Detail LastModifiedTime 12/22/1912/21/2024 PT/IN R Protime 12.7 Not Available [facility]) [address] [place], [address], 12/21/2024 09:10:20 12/22/19 25 12/21/2024 PT/IN R INR 1.1 Not Available [facility]) [address] [place], [address], 12/21/2024 09:10:20 01/30/20 25 01/29/2025 XR, chest , 2 view No observ ation record ed. [email or web address] [facility] [address] [facility], [place], [address], 01/29/2025 20:36:49 Result Notes None recorded. Problems Name Problem SNOMED Code Status Onset Date Resolution Date Notes Provider Name and Address Organization Details Recorded Time Pulmonary embolism 92591233 Active 2023 JOSE moy, [facility] 5 14:52:04 Coronary arterioscle rosis 90841192 Active 2023 JOSE moy, [facility] 5 14:52:04 Essential hypertensio n 92372411 Active 2023 JOSE moy, [facility] 5 14:52:04 Type 2 diabetes mellitus 03635694 Active [address] [facility] 5 14:52:04 Mixed anxiety and depressive disorder 680227798 Active 2023 JOSE moy, [facility] 5 14:52:04 Chronic osteoarthri tis 44091819 Active 20[facility] 5 14:52:04 Chronic obstructive pulmonary disease 50240218 Active 2023 JOSE moy, [facility] 5 14:52:04 Pain of left shoulder joint 2100623648547 9109 Active [address] [facility] 5 14:52:04 Syncope 049763777 Active 2023 [facility] 5 14:52:04 Edema of lower extremity 260563887 Active [address] [facility] 5 14:52:04 Urinary incontinenc e 849762925 Active 2023 JOSE BRIGHT null, [facility] 5 14:52:04 Recurrent falls 364499684 Active 2023 JOSE BRIGHT null, [facility] 5 14:52:04 Gastroesoph ageal reflux disease 177131655 Active 2023 JOSE BRIGHT null, [facility] 5 14:52:04 Major depressive disorder 549784068 Active 2023 [facility] 5 14:52:04 Chronic systolic heart failure 008600900 Active 2024 JOSE BRIGHT null, [facility] 5 14:52:04 Generalized anxiety disorder 33530987 Active 2024 [facility] 5 14:52:04 Chronic diastolic heart failure 773501927 Active 2024 [facility] 5 14:52:04 Closed fracture lumbar vertebra, wedge 086296471 Active 2024 [facility] 5 10:07:16 Mass of right lower lobe of lung 3681534221315 09 Active 2024 [facility] 5 10:07:03 Compression fracture of lumbar spine 990225613 Active 2024 [facility] 5 14:30:37 Supraventri cular tachycardia 0405024 Active 2024 [facility] PERSON [facility] 5 14:30:29 Abdominal pain 74300552 Active 2024 YANNICK NAYA [facility] 5 17:07:23 Chronic constipatio n 201377643 Active 2024 [facility] PERSON [facility] 5 17:07:18 Problem Notes None recorded. Procedures Surgical History Date Name Laterality Status Provider Name and Address Organization Details Recorded Time Splenectomy completed Sonal Hollis [facility] 08/14/2023 11:39:32 Imaging Results None recorded. Procedure Notes None recorded. Medical Equipment None Reported. Allergies Allergen ID Allergen Name Allergen Category Reaction Reaction Severity Criticality Documentation Date Start Date Code Code System Note Provider Name and Address Organization Details Recorded Time 36311 Compazine medicatio n myalgias (muscle pain) moderate low 10/19/2022 27960 6 RxNorm Lolasarah beth Redmond [facility] 4 10:30:07 05974 Darvocet- N medicatio n hives mild low 06/20/2023 Lola Redmond [facility] 4 10:30:27 13522 Toradol medicatio n hives Not available Not available 08/21/2023 34631 RxNorm JOSE BRIGHT [facility] 4 16:04:49 Medications Name [...] 50 mcg/0.25mL dose 1 completed YANNICK PERSON [facility] 09/04/2023 12:02:17 COVID-19, mRNA, LNP-S, PF, 100 mcg/0.5mL dose or 50 mcg/0.25mL dose [address] [facility] 09/04/2023 12:02:17 COVID-19, mRNA, LNP-S, PF, 100 mcg/0.5mL dose or 50 mcg/0.25mL dose 1 completed YANNICK PERSON null, [facility] 09/04/2023 12:02:17 Pneumococcal conjugate PCV20, polysaccharide [id number] conjugate, adjuvant, PF 3 completed YANNICK PERSON null, [facility] 09/04/2023 12:02:17 Pneumococcal conjugate PCV20, polysaccharide [id number] conjugate, adjuvant, PF 2 completed YANNICK PERSON null, [facility] 09/04/2023 12:02:17 COVID-19, mRNA, LNP-S, PF, 50 mcg/0.5 mL dose 2 completed YANNICK HORNRIS null, [facility] 09/04/2023 12:02:17 pneumococcal polysaccharide PPV23 8 completed YANNICK HORNRIS null, [facility] 09/04/2023 12:02:17 Tdap 2 completed YANNICK PERSON null, [facility] 09/04/2023 12:02:17 Tdap 3 completed YANNICK PERSON null, [facility] 09/04/2023 12:02:17 Influenza, split virus, trivalent, PF 5 completed YANNICK PERSON null, [facility] 09/04/2023 12:02:17 Influenza, split virus, quadrivalent, PF 3 completed YANNICK PERSON null, [facility] 09/04/2023 12:02:17 Influenza, split virus, quadrivalent, PF 8 completed YANNICK PERSON null, [facility] 09/04/2023 12:02:17 Influenza, split virus, quadrivalent, PF 2 completed YANNICK PERSON null, [facility] 09/04/2023 12:02:17 Influenza, split virus, quadrivalent, PF 9 completed YANNICK moy, [facility] 09/04/2023 12:02:17 meningococcal B, OMV 4 completed YANNICK moy, [facility] 09/07/2023 11:21:49 meningococcal conjugate quadrivalent, MenACWY-TT (MCV4) 4 completed YANNICK HORNRIS farzaneh, [facility] 09/07/2023 11:21:49 Pneumococcal conjugate PCV20, polysaccharide [id number] conjugate, adjuvant, PF 4 completed YANNICK moy, [facility] 09/07/2023 11:21:49 Hib (PRP-T) 4 completed YANNICK moy, [facility] 09/07/2023 11:21:49 Influenza, split virus, trivalent, PF 4 completed Not Available [facility] 01/11/2025 11:39:54 Past Encounters Encounter ID Performer Location Encounter Start Date Encounter Closed Date Diagnosis/Indication Diagnosis SNOMED-CT Code Diagnosis ICD10 Code Diagnosis IMO Codes Diagnosis Note [id number] Delta Wade MD [facility] ([facility]) [address] [place] [address] 12/21/2024 09:09:05 12/22/2024 11:06:01 Pulmonary embolism 45343964 I26.99 INR was 0.9 recently at [place] by her report. Health Concerns Section Related Observation LastModified by Organization Detai ls LastModified Time None Recorded Concern Status LastModified by Organization Details LastModified Time None Recorded Payers Encounter Date Sequence Insurance Name Policy Number Policy Esquivel Covered Member ID Esquivel Member ID Guarantor Name 12/21/2024 1 [place] Le Barnhart [id number] Le Barnhart OBGyn Episode No OBEpisode recorded.
--- OUTSIDE RECORDS SUMMARY | 2025-03-02 03:48 | XMS_ITS | Encounter Summary ---
Author Organization [facility] Address [address] [place] [address] Care Team Providers Care Roller Presser Operator Name Role Phone Marcia Claros MD Primary Care Provider [phone] Encounter Details Date Type Department Care Team (Latest Contact Info) Description 01/05/2025 Results Follow-Up [facility] Emergency Department [address] [place] [address] Ayana Roman, RN BLOOD CULTURE, [...] future doctor visits, tack picker medication, etc.? Prefer not to answer [...] on file Legal Sex Female 11:49 PM SCREEN PRINTING SUPERVISOR Gender Identity Not on file Sexual Orientation Not on file documented as of this encounter Plan of Treatment Upcoming Encounters Date Type Department Care Team (Latest Contact Info) Description 03/22/2025 10:30 AM SCREEN PRINTING SUPERVISOR Hospital Encounter [facility] [address] [facility] [address] [place] [address] Kumar Ochoa MD [address] [facility] [address] [place] [address] Combined forms of age-related cataract of right eye 08/24/2025 2:20 PM CDT Office Visit [facility] Medicine [address] [id number] Marcia Claros MD [address] [address] Scheduled Procedures Name Priority Associated Diagnoses Date/Ti me CATARACT EXTRACTION IOL INSERTION FEMTO LASER ASSISTED LEVEL 1 Combined forms of age-related cataract of right eye Right retinal detachment 03/22/2025 7:35 AM SCREEN PRINTING SUPERVISOR PARS PLANA VITRECTOMY WITH LASER Combined forms of age-related cataract of right eye Right retinal detachment 03/22/2025 7:35 AM SCREEN PRINTING SUPERVISOR EYE PLACEMENT OF SILICONE OIL Combined forms of age-related cataract of right eye Right retinal detachment 03/22/2025 7:35 AM SCREEN PRINTING SUPERVISOR documented as of this encounter Goals [...] R/O COVID-19 02/26/2025 02/26/2025 02/26/2025 5:18 PM SCREEN PRINTING SUPERVISOR Assessment Noted Time PHQ-9 Depression Total Score: 1 01/05/20 12:49 PM CDT documented as of this encounter Care Teams Roller Presser Operator Relationship Specialty Start Date End Date Marcia Claros MD [address] [place] [address] PCP - General Family Practice 02/23/25 documented as of this encounter
--- OUTSIDE RECORDS SUMMARY | 2025-03-02 03:48 | XMS_ITS | Patient Health Record ---
Author Organization [facility] Address [address] [place] [address] Care Team Providers Care Manager E Commerce Name Role Phone ( [facility] ), PHYSICIAN NOT IDENTIFIED Primary Care Provider Unavailable DR. Dominguez Mckay Unavailable [phone] Allergies Allergen (clinical drug ingredient) Drug/Non Drug [...] Female Encounters Encounter Location Date Provider Diagnosis [facility] [address] [place] [address] 06/08/2024 Dominguez Mckay [address] [place] [address] [address] [place] [address] 09/28/2024 Dominguez Mckay Plan Of Treatment No Information Insurance Providers Payer Name Payer Address Payer Phone Subscriber Number Group Number Insured Name Patient Relationship to Insured Coverage Start Date Coverage End Date Medicaid Dental [address] [place] [address] [id number] Le Barnhart Self - patient is the insured Medicaid [address] [place] [address] [phone] [id number] Le Barnhart Self - patient is the insured Medical (General) History Medical History History ICD Code heart murmer diabetes emphysema cancer chemotherapy high bp radiation treatment
--- OUTSIDE RECORDS SUMMARY | 2025-03-02 03:48 | XMS_ITS | Encounter Summary ---
Author Organization [facility] Address [address] [place] [address] Care Team Providers Care Dispatcher Service Chief Name Role Phone Marcia Claros MD Primary Care Provider [phone]- [phone] Reason for Visit * Reason Comments Wants Appointment Encounter Details Date Type Department Care Team ([facility] st Contact Info) Description 02/22/2025 Telephone [facility] [place] [address] [place] [address] Ryann Burk MD [address] [place] [address] Wants Appointment Social History Tobacco [...] often do you attend chur ch or scientologist services? More than 4 times [...] have difficulty payin g for utility costs ([place], water or gas bills)? No 01/21/2025 Medication [...] on file Legal Sex Female 11:49 PM DISPATCH OFFICER Gender Identity Not on file Sexual Orientation Not on file documented as of this encounter Miscellaneous Notes * Telephone Encounter - Vickie Carney. - 02/28/2025 10:41 AM CST Patient established care with Marcia Claros MD in [facility]. Thank You, Rommel Tesfaye Supplier Quality ATCH OFFICER * Telephone Encounter - Harika Michael - 02/22/2025 9:06 AM CST Copied from [facility] #[id number]. Topic: CPA Information Request - Appointment/Location Information [...] chance to save her. Please call at [phone] ATCH OFFICER documented in this encounter Plan of Treatment Upcoming Encounters Date Type Department Care Team (Latest Contact Info) Description 03/22/2025 10:30 AM DISPATCH OFFICER Hospital Encounter [facility] [address] [place] [phone] Kumar Ochoa MD [address] [place] [phone] Combined forms of age-related cataract of right eye 08/24/2025 2:20 PM CDT Office Visit [facility] [address] [address] Marcia Claros MD [address] [address] Scheduled Procedures Name Priority Associated Diagnoses Date/Ti me CATARACT EXTRACTION IOL INSERTION FEMTO LASER ASSISTED LEVEL 1 Combined forms of age-related cataract of right eye Right retinal detachment 03/22/2025 7:35 AM DISPATCH OFFICER PARS PLANA VITRECTOMY WITH LASER Combined forms of age-related cataract of right eye Right retinal detachment 03/22/2025 7:35 AM DISPATCH OFFICER EYE PLACEMENT OF SILICONE OIL Combined forms of age-related cataract of right eye Right retinal detachment 03/22/2025 7:35 AM DISPATCH OFFICER documented as of this encounter Goals [...] R/O COVID-19 02/26/2025 02/26/2025 02/26/2025 5:18 PM DISPATCH OFFICER documented as of this encounter Care Teams Dispatcher Service Chief Relationship Specialty Start Date End Date Marcia Claros MD [address] [address] PCP - General Family Practice 12/4/25 documented as of this encounter
--- OUTSIDE RECORDS SUMMARY | 2025-03-02 03:48 | XMS_ITS | CCD ---
Author Name Interface, [id number] lity Address [address] [facility] [place] [address] [facility] Address [address] [place] [address] Care Team Providers Care World Designer Name Role Phone Anika VALLADARES, Allen [...]
--- NOTE | 2025-03-02 04:04 | XRR_ITS ---
PROCEDURE INFORMATION: Exam: XR Chest Exam date and time: 03/02/2025 4:09 AM Age: 59 years old Clinical indication: Shortness of breath TECHNIQUE: Imaging protocol: Radiologic exam of the chest. Views: 1 view. COMPARISON: CR XR chest 1V portable [id number] 02/27/2025 4:30 AM FINDINGS: Lungs: Unremarkable. No consolidation. Pleural spaces: Unremarkable. No pleural effusion. No pneumothorax. Heart/Mediastinum: Unremarkable. No cardiomegaly. Bones/joints: Anterior lower cervical fusion. XR/XR chest 1V portable [id number] IMPRESSION: No acute findings.
--- NOTE | 2025-03-02 04:05 | ECG_ITS ---
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 Measurements Intervals [place] Rate: 102 P: 251 CO: 130 QRS: 43 QRSD: 92 T: -43 QT: 364 QTc: 474 Interpretive Statements JUNCTIONAL/Ectopic atrial TACHYCARDIA Compared to ECG 02/27/2025 04:07:44 T-wave abnormality no longer present Electronically Signed On 03-02-2025 17:25:18 SUPERVISOR [employer]PARTMENT by Ivis Drake M.D. [id number] [id number]
--- NOTE | 2025-03-02 05:05 | ECG_ITS ---
[facility] Test Date: 2025-03-02 Pat Name: Le Barnhart Department: Room: Gender: Female Carpenter Maintenance: : 1965 Requested By: Norma Paige Order Number: [id number] Jessica MD: Ivis Drake M.D. Measurements Intervals [place] Rate: 93 P: 247 VT: 139 QRS: 56 QRSD: 88 T: 22 QT: 359 QTc: 447 Interpretive Statements JUNCTIONAL/Ectopic atrial RHYTHM NONSPECIFIC ST & T-WAVE ABNORMALITY ABNORMAL RHYTHM ECG Compared to ECG 03/02/2025 03:48:37 Junctional rhythm now present T-wave abnormality now present Junctional tachycardia no longer present Electronically Signed On 03-02-2025 17:40:19 HOUSEMAID by Ivis Drake M.D. [email or web address] [id number]
[2025-03-02] MEDS: ondansetron 2 mg/ML SDV 2 mL 4 MG IVP (05:20)
[2025-03-02] MEDS: morphine 4 mg/mL SDV 1 mL IVP (05:20)
[2025-03-02 05:24] LABS: Hematocrit 37.9 % (36-47); Hemoglobin 11.10 g/dL (11.27-16.99); Mean Corpuscular HGB Conc 29.3 g/dL (30-55); Mean Corpuscular Hemoglobin 27.0 pg (27-33); Mean Corpuscular Volume 92.2 fl (85-98); Nucleated Red Blood Cells % 1.1 %; Platelet Count 161 10^3/cmm (157-399); Red Blood Count 4.11 10^6/uL (3.85-5.65); White Blood Count 6.36 10^3/uL (3.29-11.43)
[2025-03-02 05:43] LABS: Troponin(5th) Baseline 22 ng/L (0-10)
[2025-03-02 05:53] LABS: Anion Gap 15.0 (5-19); Blood Urea Nitrogen 7 mg/dL (6-20); Calcium 9.2 mg/dL (8.5-10.5); Carbon Dioxide 26 mmol/L (22-29); Chloride 102 mmol/L (98-107); Glucose 200 mg/dL (65-115); NT Pro B Type Natriuretic Pept 829 pg/mL (0-125); Osmolality Calculated 292 mOsm/kg (285-295); Potassium 4.0 mmol/L (3.5-5.1); Sodium 139 mmol/L (136-145)
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
== END 2025-03-02 06:27 | disposition home or self-care (01) ==
PROVIDERS: Emergency Provider Emergency Medicine
DX: R06.81 Apnea, not elsewhere classified (principal); J44.1 Chronic obstructive pulmonary disease with (acute) exacerbation; Z79.01 Long term (current) use of anticoagulants; Z79.4 Long term (current) use of insulin; Z79.85 Long-term (current) use of injectable non-insulin antidiabetic drugs; I25.10 Atherosclerotic heart disease of native coronary artery without angina pectoris; I25.110 Atherosclerotic heart disease of native coronary artery with unstable angina pectoris; I11.0 Hypertensive heart disease with heart failure; I50.9 Heart failure, unspecified; E11.9 Type 2 diabetes mellitus without complications; Z87.891 Personal history of nicotine dependence
CPT/HCPCS: 71045; 80048; 83880; 84484; 85025; 93005; 94640; 96374; 96375; 99285; J2270; J2405; J9999